=== PATIENT | female | born 1950 | race Caucasian/White ===

== ENCOUNTER 2019-06-23 15:49 | Outpatient (CLI) | payer MEDICARE, SELFPAY ==
--- NOTE | ~2019-06-23 | XR_ITS ---
EXAMINATION: XR chest 2V EXAM DATE: 06/23/2019 16:17 INDICATION: Cough. TECHNIQUE: Frontal and lateral projections of the chest obtained and reviewed. Comparison is made to prior examination from 02/24/2016. FINDINGS: Subsegmental left basilar atelectasis or pneumonia. Please clinically correlate. The lungs are otherwise clear. There are no pleural effusions. The cardiomediastinal silhouette is within no rmal limits. There is no pneumothorax suspected. The bones and soft tissues are unremarkable. Ther e are cholecystectomy clips. IMPRESSION: Subsegmental retrocardiac opacity could be atelectasis but pneumonia not excludable. Reviewed, dictated and finalized at location A. T METAL WELDER IMPRESSION: Subsegmental retrocardiac opacity could be atelectasis but pneumoni a not excludable.
== END 2019-06-23 15:50 | disposition home or self-care (01) ==
LOC: ANHIMG 15:55
PROVIDERS: PCP Family Medicine; Visit Provider Family Medicine
DX: R93.89 Abnormal findings on diagnostic imaging of other specified body structures (principal); R05 Cough
CPT/HCPCS: 71046

== ENCOUNTER 2019-10-25 19:45 | Emergency (ER) | payer MEDICARE, SELFPAY ==
--- NOTE | ~2019-10-25 | CT_ITS ---
EXAMINATION: CT brain wo con, CT facial bones wo con DATE: 10/25/2019 20:13 INDICATION: Fall with head injury and right eye injury TECHNIQUE: Computed tomography (CT) of the head was performed without intravenous contrast. Sagittal and coronal reconstructions were performed. The mA was adjusted according to patient size. Iterative reconstruction technique was employed. The dose-length product was 605.33 mGy-cm. 2. CT of the maxillofacial bones was performed without intravenous contrast. Sagittal and coronal rec onstructions were performed. Automated exposure control and iterative reconstruction technique were e mployed. The dose length product was 516.76 mGy-cm. COMPARISON: None FINDINGS: Large subcutaneous hematoma and laceration small amount of subcutaneous gas centered in the cerebral right frontal region with soft tissue swelling extending to the preseptal soft tissues of the right o rbit. No post septal inflammatory stranding. No calvarial or maxillofacial fractures. Bilateral globe s appear intact with changes of bilateral intraocular lens replacement. No acute intracranial hemorrhage, acute infarction or abnormal extra axial fluid collection. There is mild scattered white matter hypoattenuation consistent with chronic small vessel ischemic disease. V entricles are normal and symmetric. No mass/mass effect. Small right mastoid effusion. Intracranial c alcified cerebral atherosclerosis is noted. IMPRESSION: 1. No calvarial or maxillofacial fractures. 2. No acute intracranial process. 3. Mild scattered white matter hypoattenuation consistent with chronic small vessel ischemic disease. Reviewed, dictated and finalized at location A. IMPRESSION: 1. No calvarial or maxillofacial fractures. 2. No acute intracranial process. 3. Mild scattered white matter hypoattenuation consistent with chronic small ve ssel ischemic disease.
[2019-10-25 19:46] VITALS: BP 175/88; PULSE 75; RESP 18; TEMP 36.9; O2SAT 98
--- NOTE | 2019-10-25 20:24 | ED.FALL ---
HPI - Fall General Chief Complaint: Fall Stated Complaint: fall, hi Time Seen by Provider: 10/25/19 19:56 Source: patient Mode of arrival: ambulatory Limitations: no limitations History of Present Illness HPI Narrative: This is a 68 year old female that presents to the ER for fall with head injury. Reports she was walking up the steps onto her porch and missed a step. Reports falling forward and hitting her face on the concrete. Reports a hematoma over the right upper eyelid. Reports she takes a blood thinner. Reports since she has had a headache. Denies neck pain, vision changes, vomiting, weakness or numbness. Related Data Home Medications Medication Instructions Recorded Confirmed albuterol sulfate 90 mcg/actuation 2 puff INHALATION Q4-6H PRN gm 03/19/19 07/03/19 aerosol inhaler aspirin 81 mg tablet,delayed 81 mg PO DAILY 03/19/19 07/03/19 release clopidogrel 75 mg tablet 75 mg PO DAILY 03/19/19 07/03/19 cyanocobalamin (vitamin B-12) 2,000 mcg PO DAILY 03/19/19 07/03/19 2,000 mcg tablet,extended release fluticasone propionate 50 2 spray NASAL DAILY 03/19/19 07/03/19 mcg/actuation nasal spray,suspension pantoprazole 40 mg tablet,delayed 40 mg PO QAM 03/19/19 07/03/19 release potassium chloride 10 mEq 10 meq PO DAILY 03/19/19 07/03/19 tablet,extended release gabapentin 300 mg capsule 300 mg PO TID 04/23/19 07/03/19 furosemide 40 mg tablet 160 mg PO QAM tablet 06/16/19 07/03/19 Allergies Allergy/AdvReac Type Severity Reaction Status Date / Time diphenhydramine Allergy Unknown restless Verified 10/25/19 19:57 legs nickel Allergy Unknown hives and Verified 10/25/19 19:57 itchy rash nifedipine Allergy Unknown palpitation Verified 10/25/19 19:57 s Sulfa (Sulfonamide Allergy Unknown Urticaria Verified 10/25/19 19:57 Antibiotics) and hives CALCIUMCHANNEL AdvReac Unknown unknown Uncoded 06/16/19 10:53 Review of Systems Review of Systems: Narrative: CONSTITUTIONAL: Denies fever EYES: Denies visual changes GASTROINTESTINAL: Denies vomiting MUSCULOSKELETAL: Denies back pain, joint pain, or myalgia. NEUROLOGIC: Reports headache. Denies numbness, or weakness. All systems reviewed & are unremarkable except as noted in HPI and below PMFSH Past Medical History Medical History (Updated 10/25/19 @ 21:04 by Heather López PA-C) Chronic kidney disease, stage III (moderate) COPD (chronic obstructive pulmonary disease) Depression History of stroke Hypothyroid Type 2 diabetes mellitus with hyperglycemia Social History Social History (Updated 07/03/19 @ 13:02 by Charlene Pierre) Smoking packs per day: 2 Smoking cigarettes per day: 40.0 Years smoked: 20 Smoking pack-years: 40.00 Smoking status: Former smoker Tobacco type: cigarettes Second hand tobacco smoke exposure: No Smoking end date: 05/07/87 Alcohol intake: current Substance use: never Substance use type: does not use Gender identity (if verbalized by the patient): Female Exam Narrative: Exam Narrative: GENERAL: Well-appearing, well-nourished, and in no acute distress. HEAD: Normocephalic. EYES: PERRLA and EOMI. Right upper eyelid with edema and ecchymosis. Right frontal scalp hematoma ENT: Nares clear, no rhinorrhea or epistaxis. Mucous membranes moist. Oropharynx without tonsillar hypertrophy exudate or other lesions. Bilateral TMs pearly nguyen non-bulging NECK: Supple. No adenopathy or masses. No midline cervical spine tenderness CHEST: Clear to auscultation. No respiratory distress. No wheezes rales or rhonchi HEART: Regular rate and rhythm. No murmur heard. Normal peripheral pulses. EXTREMITIES: Normal range of motion. No edema. SKIN: Warm, dry, no rash. NEURO: No focal deficits. Alert and oriented x3. Cranial nerves II through XII grossly intact PSYCH: Normal mood and affect Course Vital Signs Vital signs: Vital Signs Temperature 98.4 F 10/25/19 19:46 Pulse Rate 75 10/25/19 19:46 R
[2019-10-25] MEDS: ACETAMINOPHEN 500 MG TABLET 1000 MG PO (20:51)
== END 2019-10-25 21:50 | disposition home or self-care (01) ==
PROVIDERS: Emergency Provider Emergency Medicine; PCP Family Medicine
DX: S00.11XA Contusion of right eyelid and periocular area, initial encounter (principal); E11.22 Type 2 diabetes mellitus with diabetic chronic kidney disease; N18.3 Chronic kidney disease, stage 3 (moderate); Z86.73 Personal history of transient ischemic attack (TIA), and cerebral infarction without residual deficits; J44.9 Chronic obstructive pulmonary disease, unspecified; Z87.891 Personal history of nicotine dependence; E03.9 Hypothyroidism, unspecified; Z79.82 Long term (current) use of aspirin; W10.9XXA Fall (on) (from) unspecified stairs and steps, initial encounter; Z79.4 Long term (current) use of insulin; F32.9 Major depressive disorder, single episode, unspecified
CPT/HCPCS: 70450; 70486; 99284; A9270

== ENCOUNTER 2020-10-20 07:56 | Outpatient (CLI) | payer MEDICARE, SELFPAY ==
[2020-10-20 08:38] LABS: Basophils Absolute Auto 0.1 K/mm3 (0.0-0.1); Basophils Percent Auto 0.8 % (0.2-1.2); Eosinophils Absolute Auto 0.5 K/mm3 (0-0.3); Eosinophils Percent Auto 5.1 % (0-4.4); Hematocrit 35.3 % (37.0-47.0); Hemoglobin 11.1 g/dL (12.0-15.0); Immature Granulocyte Absolute 0.04 K/mm3 (0.00-0.031); Immature Granulocyte Percent A 0.4 % (0-0.5); Lymphocytes Absolute Auto 3.14 K/mm3 (0.9-3.2); Lymphocytes Percent Auto 29.9 % (18.3-44.2); Mean Corpuscular HGB Conc 31.4 g/dl (32-36); Mean Corpuscular Hemoglobin 26.7 pg (26-34); Mean Corpuscular Volume 85.1 fl (80-100); Mean Platelet Volume 10.7 fl (7.4-10.4); Monocytes Absolute Auto 0.9 K/mm3 (0.1-0.6); Neutrophils Absolute Auto 5.8 K/mm3 (1.3-6.7); Neutrophils Percent Auto 54.8 % (45.5-73.1); Platelet Count Result 303 k/mm3 (150-375); Red Blood Count 4.15 M/mm3 (4.2-5.4); Red Cell Distribution Width 14.8 % (11.5-14.5); White Blood Count 10.5 K/mm3 (4.5-10.0)
[2020-10-20 08:42] LABS: Add Urine Microscopic? YES; Appearance Urine Cloudy (Clear); Bilirubin Urine Negative (Negative); Blood Urine Negative (Negative); Color Urine Yellow (Yellow); Glucose Urine UA Negative (Negative); Ketones Urine Negative (Negative); Leukocyte Esterase Ur Trace LEU/UL (NEGATIVE); Mucus Urine Rare /lpf; Nitrate Urine Negative (Negative); Protein Urine 1+ mg/dL (Negative); Specific Grav Ur 1.014 (1.001-1.035); Squamous Epithelial Cell Urine Many /hpf (Few); Urobilinogen Urine Negative mg/dL (<2.0)
[2020-10-20 08:51] LABS: Anion Gap 8 mmol/L (8-16); Blood Urea Nitrogen 64 mg/dL (7-17); Calcium 9.7 mg/dL (8.4-10.2); Carbon Dioxide 29 mmol/L (22-30); Chloride 102 mmol/L (98-107); Cholesterol 223 mg/dL (0-200); Estimated Glomerular Filt Rate 26; Glucose 187 mg/dL (65-105); HDL Direct 49 mg/dL; Phosphorus 3.8 mg/dL (2.5-4.5); Potassium 4.3 mmol/L (3.4-5.0); Sodium 139 mmol/L (137-145); Triglycerides 154 mg/dL (<150)
[2020-10-20 08:53] LABS: Alanine Aminotransferase 15 U/L (4-35); Alkaline Phosphatase 94 U/L (38-126); Anion Gap 9 mmol/L (8-16); Aspartate Amino Transferase 24 U/L (14-36); Bilirubin,Total 0.4 mg/dL (0.2-1.3); Blood Urea Nitrogen 65 mg/dL (7-17); Calcium 9.7 mg/dL (8.4-10.2); Carbon Dioxide 29 mmol/L (22-30); Chloride 102 mmol/L (98-107); Estimated Glomerular Filt Rate 26; Glucose 187 mg/dL (65-105); Magnesium 1.9 mg/dL (1.6-2.3); Potassium 4.4 mmol/L (3.4-5.0); Sodium 140 mmol/L (137-145)
[2020-10-20 09:01] LABS: LDL Cholesterol Direct 93 mg/dL
[2020-10-20 09:21] LABS: Thyroid Stimulating Hormone 0.189 uIU/mL (0.465-4.680)
[2020-10-20 09:42] LABS: Hemoglobin A1C 9.2 % (<5.7)
== END 2020-10-20 07:57 | disposition home or self-care (01) ==
PROVIDERS: PCP Family Medicine; Visit Provider Physician Assistant
DX: E11.65 Type 2 diabetes mellitus with hyperglycemia (principal); G47.00 Insomnia, unspecified; I25.10 Atherosclerotic heart disease of native coronary artery without angina pectoris; I50.32 Chronic diastolic (congestive) heart failure; E11.29 Type 2 diabetes mellitus with other diabetic kidney complication; J30.2 Other seasonal allergic rhinitis; Z51.81 Encounter for therapeutic drug level monitoring; Z79.4 Long term (current) use of insulin; N18.2 Chronic kidney disease, stage 2 (mild); E11.00 Type 2 diabetes mellitus with hyperosmolarity without nonketotic hyperglycemic-hyperosmolar coma (NKHHC); E11.22 Type 2 diabetes mellitus with diabetic chronic kidney disease
CPT/HCPCS: 36415; 80053; 80061; 80069; 81001; 83036; 83735; 84443; 85025

== ENCOUNTER 2020-11-19 12:26 | Outpatient (CLI) | payer MEDICARE, SELFPAY ==
[2020-11-19 13:11] LABS: Basophils Absolute Auto 0.1 K/mm3 (0.0-0.1); Basophils Percent Auto 0.5 % (0.2-1.2); Eosinophils Absolute Auto 0.5 K/mm3 (0-0.3); Eosinophils Percent Auto 3.7 % (0-4.4); Hematocrit 31.7 % (37.0-47.0); Hemoglobin 9.8 g/dL (12.0-15.0); Immature Granulocyte Absolute 0.06 K/mm3 (0.00-0.031); Immature Granulocyte Percent A 0.5 % (0-0.5); Lymphocytes Absolute Auto 1.86 K/mm3 (0.9-3.2); Lymphocytes Percent Auto 14.4 % (18.3-44.2); Mean Corpuscular HGB Conc 30.9 g/dl (32-36); Mean Corpuscular Hemoglobin 26.6 pg (26-34); Mean Corpuscular Volume 85.9 fl (80-100); Mean Platelet Volume 10.6 fl (7.4-10.4); Monocytes Absolute Auto 0.9 K/mm3 (0.1-0.6); Neutrophils Absolute Auto 9.5 K/mm3 (1.3-6.7); Neutrophils Percent Auto 73.9 % (45.5-73.1); Platelet Count Result 300 k/mm3 (150-375); Red Blood Count 3.69 M/mm3 (4.2-5.4); Red Cell Distribution Width 15.1 % (11.5-14.5); White Blood Count 12.9 K/mm3 (4.5-10.0)
[2020-11-19 13:18] LABS: Add Urine Microscopic? YES; Appearance Urine Cloudy (Clear); Bacteria Urine Trace /hpf; Bilirubin Urine Negative (Negative); Blood Urine Negative (Negative); Color Urine Yellow (Yellow); Glucose Urine UA Negative (Negative); Ketones Urine Negative (Negative); Leukocyte Esterase Ur Negative LEU/UL (NEGATIVE); Nitrate Urine Negative (Negative); Protein Urine Negative (Negative); Specific Grav Ur 1.013 (1.001-1.035); Squamous Epithelial Cell Urine Many /hpf (Few); Urobilinogen Urine Negative mg/dL (<2.0); WBC Urine 0-3 /hpf (0-3)
[2020-11-19 13:26] LABS: Anion Gap 10 mmol/L (8-16); Blood Urea Nitrogen 62 mg/dL (7-17); Calcium 9.2 mg/dL (8.4-10.2); Carbon Dioxide 26 mmol/L (22-30); Chloride 99 mmol/L (98-107); Estimated Glomerular Filt Rate 23; Glucose 209 mg/dL (65-105); Magnesium 1.4 mg/dL (1.6-2.3); Sodium 135 mmol/L (137-145)
[2020-11-19 14:02] LABS: Iron 40 ug/dL (37-170)
[2020-11-19 14:11] LABS: Percent Iron Saturation 11 % (20-50)
[2020-11-19 14:34] LABS: Folic Acid 8.2 ng/mL (2.76->20); Vitamin B12 > 1000.0 pg/mL (239-931)
== END 2020-11-19 12:27 | disposition home or self-care (01) ==
PROVIDERS: PCP Family Medicine; Visit Provider Physician Assistant
DX: E03.9 Hypothyroidism, unspecified (principal); N18.2 Chronic kidney disease, stage 2 (mild); D72.829 Elevated white blood cell count, unspecified; D64.9 Anemia, unspecified; R82.81 Pyuria; R31.9 Hematuria, unspecified
CPT/HCPCS: 36415; 80069; 81001; 82607; 82728; 82746; 83540; 83550; 83735; 84443; 85025; 87086

== ENCOUNTER 2021-02-09 13:17 | Outpatient (CLI) | payer MEDICARE, SELFPAY ==
[2021-02-09 14:29] LABS: Albumin Level 4.2 g/dL (3.5-5.1); Anion Gap 7 mmol/L (8-16); Blood Urea Nitrogen 51 mg/dL (7-17); Calcium 9.6 mg/dL (8.4-10.2); Carbon Dioxide 31 mmol/L (22-30); Chloride 100 mmol/L (98-107); Estimated Glomerular Filt Rate 22; Glucose 130 mg/dL (65-110); Phosphorus 4.1 mg/dL (2.5-4.5); Potassium 4.9 mmol/L (3.4-5.0); Sodium 138 mmol/L (137-145)
[2021-02-09 14:35] LABS: MALB Creatinine Ratio 123.3 mg/g (0-30); Microalbumin Urine Random 78.9 mg/L (0-16.7)
[2021-02-09 14:46] LABS: Free T4 Free Thyroxine 1.41 ng/mL (0.78-2.19)
== END 2021-02-09 13:18 | disposition home or self-care (01) ==
LOC: ANHLAB 13:23
PROVIDERS: PCP Family Medicine; Visit Provider Internal Medicine Endocrinology, Diabetes & Metabolism
DX: E03.9 Hypothyroidism, unspecified (principal); N18.2 Chronic kidney disease, stage 2 (mild); E11.9 Type 2 diabetes mellitus without complications; E11.65 Type 2 diabetes mellitus with hyperglycemia; Z71.3 Dietary counseling and surveillance
CPT/HCPCS: 29445; 36415; 80069; 82043; 83735; 84439; 84443

== ENCOUNTER 2021-03-16 11:36 | Outpatient (CLI) | payer MEDICARE, SELFPAY ==
--- NOTE | ~2021-03-16 | XR_ITS ---
EXAMINATION: XR ribs LT 2V w CXR 2V EXAM DATE: 03/16/2021 12:08 INDICATION: Z91.81 - History of falling, left rib pain. Initial encounter. TECHNIQUE: Frontal projection of the upper left ribs, frontal projection of the lower left ribs, obli que projection of the left ribs, frontal and lateral chest x-ray(s) for interpretation. Correlation i s made to chest x-ray 06/23/2019. FINDINGS: There is acute left 5th rib fracture laterally. Small amount of lingular linear atelectasis . Cardiomediastinal silhouette is normal. No pleural effusion or pneumothorax. IMPRESSION: Acute left rib fracture laterally. Reviewed, dictated and finalized at location A. S DESIGNER
--- NOTE | ~2021-03-16 | XR_ITS ---
EXAMINATION: XR shoulder LT min 2V EXAM DATE: 03/16/2021 12:07 INDICATION: Z91.81 - History of falling, left shoulder pain. TECHNIQUE: The following left shoulder projections obtained: frontal projection with internal rotatio n, frontal projection with external rotation, Grashey, and scapular Y view (4+ views). Comparison is made to prior examination from 01/10/2018. FINDINGS: No evidence of left shoulder rotator cuff calcific tendinosis. There is mild glenohumeral joint, moderate acromioclavicular joint primary osteoarthritis. There is acute left 5th rib fracture anterolaterally. There are no acute shoulder fractures or dislocations identified. There is no subcu taneous gas. The soft tissue is unremarkable. There are no radiopaque foreign bodies. IMPRESSION: 1. Acute left 5th rib fracture anterolaterally. 2. 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 Reviewed, dictated and finalized at location A. E MILLER HELPER
== END 2021-03-16 11:37 | disposition home or self-care (01) ==
PROVIDERS: PCP Family Medicine; Visit Provider Physician Assistant
DX: M25.512 Pain in left shoulder (principal); R07.81 Pleurodynia; Z91.81 History of falling; S22.32XA Fracture of one rib, left side, initial encounter for closed fracture; M19.012 Primary osteoarthritis, left shoulder
CPT/HCPCS: 29445; 71046; 71100; 73030

== ENCOUNTER 2021-03-30 07:19 | Outpatient (RCR) | payer MEDICARE, SELFPAY ==
[2021-01-04 13:38] VITALS: BMI 47.5
--- NOTE | 2021-01-31 13:11 | PCWOUND ---
AGNES NOTE patient called office at 1215 claiming she wasn't sure that she had an appointment today or that she had missed the appointment. Told patient her appointment was today at 1230 and asked if she was going to make it. Patient then goes on about how she didn't realize that the cast was a set in stone treatment and she has claustrophobia and unsure if she can do this. Patient states her concerns are that her feet swell and night causing a lot of pain and bee sting sensations and that she has to take a pain pill to relieve the issue. Patient states she is absolutely terrified of the cast due to claustrophobia since she cannot remove the cast. I educated the patient that she was correct that the cast must stay on 24 hours a day with a walking boot and that the cast is changed every 7 days. I educated that she has to sponge bathe as well while cast is on. I acknowledged patient's concerns about her anxiety that if she would come in for an appointment Sunday02/02/21 that I would show her a sample cast and that if she chooses to have one applied that if her anxiety was too much that she can call on 02/03/21 morning and that I would bring her in and remove the cast. Patient is agreeable to come in for an appointment before refusing treatment. I spoke with Emily at Dr. Gonzalez' office to inform of situation and rescheduled appointment.
== END 2021-04-04 23:59 | disposition home or self-care (01) ==
LOC: ANHWOC 07:19
PROVIDERS: PCP Family Medicine; Visit Provider Podiatrist Foot & Ankle Surgery
DX: E11.621 Type 2 diabetes mellitus with foot ulcer (principal); L97.519 Non-pressure chronic ulcer of other part of right foot with unspecified severity
CPT/HCPCS: 29445; 99212; G0463

== ENCOUNTER 2021-04-06 12:05 | Outpatient (RCR) | payer MEDICARE, SELFPAY ==
[2021-04-05 00:06] VITALS: BMI 47.5
== END 2021-05-27 12:11 | disposition home or self-care (01) ==
LOC: ANHWOC 12:05
PROVIDERS: PCP Family Medicine; Visit Provider Podiatrist Foot & Ankle Surgery
DX: E11.621 Type 2 diabetes mellitus with foot ulcer (principal); L97.519 Non-pressure chronic ulcer of other part of right foot with unspecified severity
CPT/HCPCS: 99213; A9270; G0463

== ENCOUNTER 2021-05-10 17:05 | Emergency (ER) | payer MEDICARE, SELFPAY ==
[2021-05-10 17:10] VITALS: BP 109/77; PULSE 64; RESP 18; TEMP 36.6; O2SAT 100
== END 2021-05-11 01:34 | disposition left against medical advice (07) ==
LOC: ANHED 18:46
PROVIDERS: PCP Family Medicine
DX: Z53.21 Procedure and treatment not carried out due to patient leaving prior to being seen by health care provider (principal)
CPT/HCPCS: 99199

== ENCOUNTER 2021-07-21 14:07 | Outpatient (CLI) | payer MEDICARE, SELFPAY ==
[2021-07-21 14:43] LABS: Albumin Level 4.4 g/dL (3.5-5.1); Anion Gap 7 mmol/L (8-16); Blood Urea Nitrogen 61 mg/dL (7-17); Calcium 9.4 mg/dL (8.4-10.2); Carbon Dioxide 30 mmol/L (22-30); Chloride 100 mmol/L (98-107); Estimated Glomerular Filt Rate 26; Glucose 176 mg/dL (65-110); Magnesium 2.1 mg/dL (1.6-2.3); Potassium 4.6 mmol/L (3.4-5.0); Sodium 137 mmol/L (137-145)
[2021-07-21 14:46] LABS: Hemoglobin A1C 8.2 % (<5.7)
== END 2021-07-21 14:08 | disposition home or self-care (01) ==
LOC: ANHLAB 14:12
PROVIDERS: PCP Family Medicine
DX: I12.9 Hypertensive chronic kidney disease with stage 1 through stage 4 chronic kidney disease, or unspecified chronic kidney disease (principal); N18.31 Chronic kidney disease, stage 3a; E11.00 Type 2 diabetes mellitus with hyperosmolarity without nonketotic hyperglycemic-hyperosmolar coma (NKHHC); E11.22 Type 2 diabetes mellitus with diabetic chronic kidney disease; R35.1 Nocturia; R60.9 Edema, unspecified
CPT/HCPCS: 36415; 80069; 83036; 83735

== ENCOUNTER 2021-09-30 08:00 | Outpatient (CLI) | payer MEDICARE, SELFPAY ==
--- NOTE | ~2021-09-30 | US_ITS ---
EXAMINATION: US art doppler w press LE BI DATE: 09/30/2021 09:46 INDICATION: Peripheral arterial occlusive disease to the bilateral lower limbs with claudication TECHNIQUE: Segmental pressures and plethysmographic and Doppler waveforms of the brachial and lower e xtremity arteries were obtained. COMPARISON: None. FINDINGS: Left brachial artery pressure of 168 mm Hg. The right ankle-brachial index (BRI) is 1.04 (normal >= 0.9-1). The right great toe-brachial index (T BI) is 0.57 (normal >= 0.6-0.8). Significantly decreased pressures at the right dorsalis pedis artery compared with the right posterior tibial artery and the contralateral left dorsalis pedis artery. Bi phasic waveforms with brisk systolic upstrokes throughout the arteries of the right lower limb. The left BRI is 1.08. The left TBI is 0.84. Arterial waveforms are biphasic with brisk systolic upstr okes throughout the arteries of the left lower limb. Left popliteal artery was not evaluated as patie nt refused due to pain. IMPRESSION: 1. Mild arterial occlusive disease to the right lower limb with mildly decreased right TBI with susanna l left TBI and bilateral ABIs. Reviewed, dictated and finalized at location B. IMPRESSION: 1. Mild arterial occlusive disease to the right lower limb with mildly decrease d right TBI with normal left TBI and bilateral ABIs.
== END 2021-09-30 08:01 | disposition home or self-care (01) ==
LOC: ANHIMG 08:05
PROVIDERS: PCP Family Medicine; Visit Provider Podiatrist Foot & Ankle Surgery
DX: I73.9 Peripheral vascular disease, unspecified (principal)
CPT/HCPCS: 93923

== ENCOUNTER 2021-11-22 11:22 | Outpatient (CLI) | payer MEDICARE, SELFPAY ==
[2021-11-22 11:50] LABS: Hematocrit 32.3 % (37.0-47.0); Hemoglobin 9.9 g/dL (12.0-15.0)
[2021-11-22 12:02] LABS: Anion Gap 3 mmol/L (8-16); Blood Urea Nitrogen 68 mg/dL (7-17); Carbon Dioxide 32 mmol/L (22-30); Chloride 104 mmol/L (98-107); Estimated Glomerular Filt Rate 23; Glucose 188 mg/dL (65-110); Potassium 4.8 mmol/L (3.4-5.0); Sodium 139 mmol/L (137-145)
[2021-11-22 12:08] LABS: INR 1.1; Prothrombin Time 13.5 Seconds (11.1-14.7)
[2021-11-22 12:09] LABS: Partial Thromboplastin Time 32.3 SECONDS (22.3-36.8)
== END 2021-11-22 11:23 | disposition home or self-care (01) ==
PROVIDERS: Anesthesiology; PCP Family Medicine; Visit Provider Podiatrist Foot & Ankle Surgery
DX: Z01.812 Encounter for preprocedural laboratory examination (principal); I13.0 Hypertensive heart and chronic kidney disease with heart failure and stage 1 through stage 4 chronic kidney disease, or unspecified chronic kidney disease; N18.30 Chronic kidney disease, stage 3 unspecified; Z51.81 Encounter for therapeutic drug level monitoring; Z79.899 Other long term (current) drug therapy
CPT/HCPCS: 36415; 80048; 85014; 85018; 85610; 85730

== ENCOUNTER 2021-11-25 01:12 | Day surgery (SDC) | payer MEDICARE, SELFPAY ==
[2021-11-22 09:34] VITALS: BMI 49.6
--- NOTE | 2021-11-22 09:59 | PC.NURSE ---
Report to the Outpatient Waiting Room, entrance under the green pavilion located off [facility], at time _0730_ on date _11/25/21_. OR Time: _0930_. - You and your visitor will be asked a series of questions to screen for COVID 19 for your protection. - Only one visitor is allowed at this time. - The patient visitor is requested to leave or wait in car when not with patient. - A mask is required within the hospital. Patients may have clear liquids (water, carbonated beverages, clear teas, apple juice) until 3 hours prior to surgery (0630 AM) with a maximum of 20 ounces. - No food from midnight until time of surgery Take the following medications with a SIP of water the morning of surgery: _ALPRAZOLAM, MONTELUKAST, SYNTHROID, INHALER, PAIN MEDS_ Medications to discontinue per physician - _CALL DR. SANCHEZ'S OFFICE REGARDING ASPIRING AND CLOPIDOGREL_ Date to take last dose____ Please no make-up, nail luxembourger, hairspray, perfume, deodorant, or body powder the day of surgery. No jewelry (including any body piercings) or valuables the day of surgery, leave them at home. Please take a shower or bath the night before, or the morning of, surgery with an antibacterial soap. Wear comfortable, loose fitting clothing. - Jewelry must be removed prior to entering the operating room. Rings and piercings that are not removed may be cut off. - The hospital will not accept responsibility for valuables. - Please leave all valuables, including medications, at home the day of surgery. If you are going home after surgery, a licensed local company refrigerated truck driver must drive you home. - NO public transportation without another adult. - We recommend that an adult stay with you for 24 hours following discharge. - We also recommend that you do not drive, make important decision, drink alcoholic beverages, or take any drugs that were not prescribed by your health care provider for at least 24 hours after your discharge time. Follow any additional instructions given to you from your surgeon. If you or anyone in your household have experienced Covid symptoms in the past week, please notify your surgeon or the nurse liaison at the phone number below for possible testing. Telephone instructions given to ____PT and asked if any additional questions and then verbalized understanding. Patient advised to call surgeon office or pre surgery nurse liaison [phone] if any additional questions.
--- NOTE | 2021-11-24 10:38 | WPDANESEPPF ---
Anes - Initial Pre Proc Eval Procedure: Operation Date: 11/25/21 09:30 Proposed Procedures p Fifth Metatarsal Head Resection Right Foot - Yoan Gonzalez JR, MD <Moustapha Bravo MD - Last Filed: 11/24/21 10:39> Date/Time: 11/24/21 10:38 <Moustapha Bravo MD - Last Filed: 11/24/21 10:39> Surgeon: Yoan Gonzalez JR, MD <Moustapha Bravo MD - Last Filed: 11/24/21 10:39> Pre Op Diagnosis: chronic ulceration rt foot sub 5th mpj <Moustapha Bravo MD - Last Filed: 11/24/21 10:39> Patient Data Age: 70 Gender: F Height: 1.6 m Weight: 127.27 kg <Moustapha Bravo MD - Last Filed: 11/24/21 10:39> Allergies Allergy/AdvReac Type Severity Reaction Status Date / Time diphenhydramine Allergy Unknown restless Verified 11/25/21 08:20 legs nickel Allergy Unknown hives and Verified 11/25/21 08:20 itchy rash nifedipine Allergy Unknown palpitation Verified 11/25/21 08:20 s Sulfa (Sulfonamide Allergy Unknown Urticaria Verified 11/25/21 08:20 Antibiotics) and hives Aevwtri-LVR-RiH Reductase AdvReac Intermediate muscle Verified 11/25/21 08:20 Inhibitor cramps [Ndxueni-Pum-Auo Reductase Inhibitor] CALCIUMCHANNEL AdvReac Unknown SEE COMMIT Uncoded 11/25/21 08:20 <Moustapha Bravo MD - Last Filed: 11/24/21 10:39> Home Medications Medication Instructions Recorded Confirmed Type aspirin 81 mg tablet,delayed 81 mg PO HS 03/19/19 11/25/21 History release (Aspir-Low) cyanocobalamin (vitamin B-12) 2,000 mcg PO DAILY 03/19/19 11/22/21 History 2,000 mcg tablet,extended release (Vitamin B-12 ER) fluticasone propionate 50 2 spray intranasal DAILY 03/19/19 11/25/21 History mcg/actuation nasal spray,suspension ipratropium 0.5 mg-albuterol 3 mg 3 ml inhalation Q8H PRN shortness 05/22/19 11/22/21 Rx (2.5 mg base)/3 mL nebulization of breath or wheezing #180 mL soln ferrous sulfate 325 mg (65 mg 325 mg PO BID #180 tabs 11/22/20 11/22/21 Rx iron) tablet,delayed release blood sugar diagnostic (OneTouch #400 ea 01/31/21 11/08/21 Rx Verio test strips) flash glucose scanning reader #1 ea 01/31/21 11/08/21 Rx (FreeStyle Nica 2 [place]) flash glucose sensor (FreeStyle #6 ea 01/31/21 11/08/21 Rx Nica 2 Sensor kit) clopidogrel 75 mg tablet (Plavix) 75 mg PO DAILY #90 tabs 05/30/21 11/25/21 Rx irbesartan 300 mg tablet 300 mg PO DAILY #90 tabs 06/13/21 11/25/21 Rx insulin glargine 100 unit/mL (3 55 unit subcut QPM 07/04/21 11/25/21 History mL) subcutaneous pen (Lantus Solostar U-100 Insulin) alprazolam 0.5 mg tablet 0.5 mg PO BID #60 tabs 08/15/21 11/25/21 Rx furosemide 80 mg tablet 120 mg PO DAILY #135 tabs 09/29/21 11/25/21 Rx hydrochlorothiazide 25 mg tablet 50 mg PO DAILY #180 tabs 09/29/21 11/25/21 Rx insulin syringe-needle U-100 1 mL #100 ea 10/14/21 11/08/21 Rx 31 gauge x 5/16 (BD Insulin Syringe Ultra-Fine) gabapentin 600 mg tablet 600 mg PO BID #180 tabs 11/08/21 11/25/21 Rx tramadol 50 mg tablet 50 mg PO Q12H PRN pain #30 tabs 11/10/21 11/25/21 Rx albuterol sulfate 90 mcg/actuation See Rx Instructions .Route 11/22/21 11/25/21 History aerosol inhaler .COMPLEX PRN Wheezing gabapentin 800 mg tablet 800 mg PO HS 11/22/21 11/25/21 History levothyroxine 175 mcg tablet 175 mcg PO QAM 11/22/21 11/25/21 History (Synthroid) montelukast 10 mg tablet 10 mg QAM 11/22/21 11/25/21 History pantoprazole 40 mg tablet,delayed 40 mg QAM 11/22/21 11/25/21 History release verapamil 360 mg 24 hr 360 mg PO HS 11/22/21 11/25/21 History capsule,extended release <Moustapha Bravo MD - Last Filed: 11/24/21 10:39> Patient hx anesthesia problems: none <Asad Vale DO - Last Filed: 11/25/21 08:29> Family hx anesthesia problems: none <Asad Vale DO - Last Filed: 11/25/21 08:29> Results Review: All pre-operative results and documents have been reviewed as part of the pre-operative e
--- NOTE | ~2021-11-25 | XR_ITS ---
EXAMINATION: XR surgery orthopedic DATE: 11/25/2021 10:10 INDICATION: Right foot surgery TECHNIQUE: Single dorsal plantar fluoroscopic image of the right forefoot was obtained during procedu re performed by Dr. Gonzalez. Radiologist was not present for the imaging or procedure. The amount of fluoroscopy time used during this procedure was 0.1 minutes. COMPARISON: None. FINDINGS: Resection of the head of the right fifth metatarsal with expected postoperative gas at the resection bed. Alignment is otherwise normal. No fracture. There is flattening of the head of the second metata rsal consistent with chronic osteonecrosis (Freiberg's infraction). Mild osteoarthritis at the first and second metatarsophalangeal and a few interphalangeal joints. IMPRESSION: 1. Expected appearance post resection of the head of the right fifth metatarsal. 2. 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 Reviewed, dictated and finalized at location A. IMPRESSION: 1. Expected appearance post resection of the head of the right fifth metatarsal . 2. 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
--- NOTE | 2021-11-25 07:25 | WPDHPUPDATE1 ---
History and Physical Update Update Date/Time: 11/25/21 07:25 History and Physical has been reviewed, including an updated exam of the patient. There are NO changes in the patient's condition. Risks, benefits, and alternatives have been discussed and questions answered. Patient agrees to proceed with procedure.
[2021-11-25 08:49] LABS: Glucose Point of Care 300 mg/dl (65-105)
[2021-11-25] MEDS: INSULIN HUMAN REGULAR (*BKC) 100 UNITS/ML IV PUSH (08:57)
[2021-11-25] MEDS: LACTATED RINGERS 1,000 ML 30 ML IV CONT (09:00)
[2021-11-25] MEDS: MIDAZOLAM HCL (*CRX) 2 MG/2 ML VIAL IV PUSH (09:17)
[2021-11-25] MEDS: ceFAZolin 2 GM/D5W 50 ML 2 GM/50 ML BAG IVPB (09:33)
[2021-11-25 09:39] VITALS: BP 166/90; PULSE 78; RESP 12; TEMP 36.6; O2SAT 98
[2021-11-25] MEDS: LIDOCAINE HCL 2% LOCAL INJ 20 ML VIAL 10 ML INFILTRATE (09:51)
[2021-11-25] MEDS: BUPIVACAINE HCL 0.5% PF 30 ML VIAL 10 ML INFILTRATE (09:53)
[2021-11-25 10:08] VITALS: BP 156/75; PULSE 83; RESP 16; O2SAT 98
--- NOTE | 2021-11-25 10:13 | W.PM.PROC2 ---
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 A pneumatic ankle tourniquet was placed about the patient's right ankle. Following monitored anesthesia care, local anesthesia was obtained about the patients ankle utilizing 20 mL of a 1:1 mixture of 2% Lidocaine plain and 0.5% Marcaine plain. The foot was then scrubbed, prepped, and draped in the usual aseptic manner. An Esmarch bandage was then used to exsanguinate the patient's foot and the pneumatic ankle tourniquet was then inflated. Attention was directed to the dorsal lateral aspect of the fifth metatarsal head where a 2 cm incision was made just lateral to the extensor digitorum longus tendon to the fifth digit to the shaft of the fifth metatarsal. The incision was continued deep down through the subcutaneous tissues using sharp and blunt dissection. All bleeders were cauterized as necessary.A full-length periosteal incision was made overlying the fifth metatarsal distally. A McGlamry Elevator was used to free the plantar structures to the fifth metatarsal head. Next, a sagittal bone saw was used to resect the head of the fifth metatarsal proximal at the neck of the 5th metatarsal. The fifth metatarsal was removed from the operative site and placed on the back table and sent for gross and histopathology. No abnormalities to the head of the fifth metatarsal. Fluoroscopy was used to make sure that the resected distal fifth metatarsal was adequate. The edges were smoothed out with a bone rasp. Next, the periosteum and capsular structures overlying the 5th metatarsophalangeal joints were reapproximated with 4-0 Vicryl. Next, subcutaneous structures were reapproximated and coapted utilizing 4-0 Vicryl. Next, the skin was reapproximated and coapted utilizing 4-0 Monocryl in running subcuticular suture fashion technique. Upon completion of the procedure, the incision was dressed with Adaptic, 4 x 4's, Kerlix, and Coban. The pneumatic ankle tourniquet was then deflated and a prompt hyperemic response noted to all digits of the foot. A surgical shoe was then applied. The patient did very well with the procedure and the anesthesia. The patient was transferred to the recovery room with vital signs stable and vascular status intact to all toes of the affected foot. Following a period of postoperative monitoring, the patient will be discharged home on the following written and oral postoperative instructions: 1. Keep the dressing clean, dry, and intact. Use a cast protector bag with showers. 2. The patient should use a surgical shoe for ambulation postoperatively. 3. The patient should be on bedrest with bathroom privileges and elevate the affected foot when at rest. 4. The patient to contact Dr. Gonzalez for all postop care and if any problems arise. 5. Prescriptions were written for Percocet 5/325 dispensed 40 to be taken 1 p.o. q.4 to 6 hours as needed for severe pain. 6. Take one Aspirin 325mg every 24hours for two weeks post operatively. Estimated Blood Loss 1 Pathology Yes Condition Stable Disposition Same day
[2021-11-25 10:35] VITALS: BP 165/69; PULSE 79; RESP 16
[2021-11-25 11:00] VITALS: BP 138/63; PULSE 57; RESP 16
== END 2021-11-25 11:14 | disposition home or self-care (01) ==
PROVIDERS: PCP Family Medicine; Visit Provider Podiatrist Foot & Ankle Surgery
PROC: (CPT 28104; principal; 2021-11-25 09:30)
DX: E11.621 Type 2 diabetes mellitus with foot ulcer (principal); L97.519 Non-pressure chronic ulcer of other part of right foot with unspecified severity; I13.0 Hypertensive heart and chronic kidney disease with heart failure and stage 1 through stage 4 chronic kidney disease, or unspecified chronic kidney disease; N18.30 Chronic kidney disease, stage 3 unspecified; I50.32 Chronic diastolic (congestive) heart failure; E11.22 Type 2 diabetes mellitus with diabetic chronic kidney disease; J44.9 Chronic obstructive pulmonary disease, unspecified; I25.10 Atherosclerotic heart disease of native coronary artery without angina pectoris; K21.9 Gastro-esophageal reflux disease without esophagitis; E03.9 Hypothyroidism, unspecified; E11.42 Type 2 diabetes mellitus with diabetic polyneuropathy; F41.1 Generalized anxiety disorder; F32.A Depression, unspecified; Z86.73 Personal history of transient ischemic attack (TIA), and cerebral infarction without residual deficits; Z87.891 Personal history of nicotine dependence; E66.01 Morbid (severe) obesity due to excess calories; Z68.42 Body mass index [BMI] 45.0-49.9, adult; Z79.4 Long term (current) use of insulin; Z79.82 Long term (current) use of aspirin; Z79.51 Long term (current) use of inhaled steroids
CPT/HCPCS: 28113; 82948; 88305; 88311; 99199; J0690; J1815; J2250; J2704; J3010; J7120

== ENCOUNTER 2021-12-12 11:44 | Outpatient (CLI) | payer MEDICARE, SELFPAY ==
[2021-12-12 12:26] LABS: Anion Gap 9 mmol/L (8-16); Blood Urea Nitrogen 71 mg/dL (7-17); Carbon Dioxide 28 mmol/L (22-30); Chloride 98 mmol/L (98-107); Estimated Glomerular Filt Rate 23; Glucose 226 mg/dL (65-110); Magnesium 1.9 mg/dL (1.6-2.3); Phosphorus 3.9 mg/dL (2.5-4.5); Potassium 4.7 mmol/L (3.4-5.0); Sodium 135 mmol/L (137-145)
[2021-12-12 12:34] LABS: Hemoglobin A1C 8.1 % (<5.7)
== END 2021-12-12 11:45 | disposition home or self-care (01) ==
PROVIDERS: PCP Family Medicine
DX: N18.2 Chronic kidney disease, stage 2 (mild) (principal); E11.00 Type 2 diabetes mellitus with hyperosmolarity without nonketotic hyperglycemic-hyperosmolar coma (NKHHC)
CPT/HCPCS: 36415; 80069; 83036; 83735

== ENCOUNTER 2021-12-29 14:36 | Outpatient (CLI) | payer MEDICARE, SELFPAY ==
--- NOTE | ~2021-12-29 | XR_ITS ---
XR chest 2V 12/29/2021 15:03 Indication: Shortness of breath Procedure: 2 view chest Comparison: Comparison to multiple prior studies sequentially, with oldest reviewed study dated 05/28. Findings: Patchy bilateral airspace disease, compatible with pneumonia. Small pleural effusions. Bord coleman heart size. No pneumothorax. Impression: 1: Patchy bilateral airspace disease, compatible with pneumonia. Reviewed, dictated and finalized at location A. Impression: 1: Patchy bilateral airspace disease, compatible with pneumonia.
== END 2021-12-29 14:37 | disposition home or self-care (01) ==
PROVIDERS: PCP Family Medicine; Visit Provider Physician Assistant
DX: J45.909 Unspecified asthma, uncomplicated (principal); R06.02 Shortness of breath; R91.8 Other nonspecific abnormal finding of lung field
CPT/HCPCS: 71046

== ENCOUNTER 2022-02-10 21:04 | Inpatient (IN) | payer MEDICARE, SELFPAY ==
[2022-02-10] VITALS (8 sets, daily range): BP systolic 201–229; BP diastolic 76–95; PULSE 74–144; RESP 16–26; TEMP 36.9; O2SAT 78–100
--- NOTE | ~2022-02-10 | XR_ITS ---
EXAMINATION: XR chest 1V portable DATE: 02/20/2022 08:08 INDICATION: Shortness of breath. TECHNIQUE: A single frontal view of the chest was obtained. COMPARISON: Chest single view 02/17/2022, chest CT 02/11/2022 FINDINGS: There is a diffuse interstitial pattern in the lungs. There are patchy airspace opacities i n all lung zones bilaterally. There are small pleural effusions. No pneumothorax. Cardiomegaly is not ed. A right internal jugular central venous catheter is seen with tip in the right atrium. IMPRESSION: 1. Worsened diffuse lung disease, consistent with pulmonary edema or less likely pneumonia. 2. Small pleural effusions. 3. Cardiomegaly. Reviewed, dictated and finalized at location B. IMPRESSION: 1. Worsened diffuse lung disease, consistent with pulmonary edema or less likel y pneumonia. 2. Small pleural effusions. 3. Cardiomegaly.
--- NOTE | ~2022-02-10 | XR_ITS ---
EXAMINATION: XR chest 1V portable INDICATION: Shortness of breath and weakness TECHNIQUE: Portable AP chest at 0947 hours COMPARISON: 02/22/2022 FINDINGS: A large bore right internal jugular catheter ends with its tip in the right atrium. Diffuse interstitial and airspace opacities persist with slight improvement. No pleural effusion or pneumoth orax. Cardiomegaly is noted. IMPRESSION: 1. Diffuse lung disease with continued improvement, consistent with pulmonary edema and/or pneumonia. 2. Cardiomegaly. Reviewed, dictated and finalized at location B. IMPRESSION: 1. Diffuse lung disease with continued improvement, consistent with pulmonary e bell and/or pneumonia. 2. Cardiomegaly.
--- NOTE | ~2022-02-10 | US_ITS ---
EXAMINATION:US venous doppler LE BI INDICATION:Leg swelling TECHNIQUE: Multiple grayscale, color flow and Doppler images of the right and left lower extremity de ep venous systems were obtained and reviewed. COMPARISON:No prior studies for comparison. FINDINGS: The common femoral, superficial femoral and popliteal veins demonstrate normal respiratory variation, augmentation and compressibility. Color flow is also seen within the posterior tibial, pe roneal, greater saphenous and profunda veins. IMPRESSION: 1: No lower extremity deep venous thrombosis. Reviewed, dictated and finalized at location A.
--- NOTE | ~2022-02-10 | XR_ITS ---
EXAMINATION: XR chest 1V portable DATE: 02/21/2022 04:52 INDICATION: Shortness of breath TECHNIQUE: frontal view of the chest was obtained. COMPARISON: Chest radiograph dated 02/20/22 and 02/17/2022 FINDINGS: Continued slight progression in interstitial and patchy airspace opacities throughout both lungs, rig ht greater than left. No pneumothorax. Likely small bilateral pleural effusions. Cardiomegaly. Right internal jugular central venous catheter with distal tip near the superior cavoatrial junction. IMPRESSION: 1. Continued slight increase in extensive bilateral interstitial and airspace opacities which could r epresent pulmonary edema or pneumonia. 2. Likely small bilateral pleural effusions. 3. Cardiomegaly. Reviewed, dictated and finalized at location A. IMPRESSION: 1. Continued slight increase in extensive bilateral interstitial and airspace o pacities which could represent pulmonary edema or pneumonia. 2. Likely small bilateral pleural effusions. 3. Cardiomegaly.
--- NOTE | ~2022-02-10 | XR_ITS ---
EXAMINATION: XR chest 1V portable INDICATION: Shortness of breath TECHNIQUE: Portable AP chest at 0936 hours COMPARISON: 02/12/2022 FINDINGS: There is a mild diffuse interstitial pattern with slight improvement. There are small pleur al effusions. No pneumothorax is identified. The cardiomediastinal silhouette is normal. IMPRESSION: 1. Mild pulmonary edema with slight improvement. Reviewed, dictated and finalized at location A.
--- NOTE | ~2022-02-10 | US_ITS ---
EXAMINATION: US renal BI DATE: 02/14/2022 10:55 INDICATION: Acute on chronic kidney disease TECHNIQUE: Multiple grayscale and Doppler ultrasound images of the kidneys were obtained. COMPARISON: None. FINDINGS: The right kidney measures 12.9 x 5.5 x 6.1 cm. The left kidney measures 13.6 x 5.8 x 7.2 cm . The kidneys demonstrate normal parenchymal echogenicity. There is no hydronephrosis. The bladder is decompressed by a Street catheter. IMPRESSION: 1. Normal kidneys without hydronephrosis. Reviewed, dictated and finalized at location A.
--- NOTE | ~2022-02-10 | XR_ITS ---
XR chest 1V portable 02/10/2022 21:35 Indication: Shortness of breath. COPD. Procedure: AP portable chest Comparison: Comparison to multiple prior studies sequentially, with oldest reviewed study dated 02/05. Findings: Cardiomegaly with interstitial edema. No pleural effusion or pneumothorax. No acute osseous abnormality. Impression: 1: Cardiomegaly with interstitial edema. Reviewed, dictated and finalized at location A. Impression: 1: Cardiomegaly with interstitial edema.
--- NOTE | ~2022-02-10 | XR_ITS ---
XR chest 1V portable 02/12/2022 10:22 Indication: Shortness of breath Procedure: AP portable chest Comparison: Comparison to multiple prior studies sequentially, with oldest reviewed study dated 12/29. Findings: There is mild unchanged interstitial edema. No significant effusion or pneumothorax. Heart size borderline. Impression: 1: Mild interstitial edema. Reviewed, dictated and finalized at location A. Impression: 1: Mild interstitial edema.
--- NOTE | ~2022-02-10 | XR_ITS ---
XR chest 1V portable 02/11/2022 02:46 Indication: Respiratory distress Procedure: AP portable chest Comparison: Comparison to multiple prior studies sequentially, with oldest reviewed study dated 06/23. Findings: Cardiomegaly with mild interstitial edema. No pleural effusion or pneumothorax. No acute os seous abnormality. Impression: 1: Cardiomegaly with mild interstitial edema. No significant change from 02/10/2022. Reviewed, dictated and finalized at location A. Impression: 1: Cardiomegaly with mild interstitial edema. No significant change from 2021.
--- NOTE | ~2022-02-10 | XR_ITS ---
EXAMINATION: XR chest 1V portable INDICATION: Pulmonary edema TECHNIQUE: Portable AP chest at 0846 hours COMPARISON: 02/21/2022 FINDINGS: A large bore right internal jugular catheter ends with its tip in the distal superior vena cava. Diffuse interstitial and airspace opacities persist with slight improvement. No pleural effusio n or pneumothorax. Cardiomegaly is noted. IMPRESSION: 1. Diffuse lung disease with slight improvement, consistent with pulmonary edema and/or pneumonia. 2. Cardiomegaly. Reviewed, dictated and finalized at location A. IMPRESSION: 1. Diffuse lung disease with slight improvement, consistent with pulmonary linda a and/or pneumonia. 2. Cardiomegaly.
--- NOTE | ~2022-02-10 | CT_ITS ---
EXAMINATION: CTA chest PE protocol DATE: 02/11/2022 11:48 CDT INDICATION: Respiratory failure TECHNIQUE: Computed tomographic angiography (CTA) of the chest was performed with 100 mL Omnipaque-35 0 intravenous contrast. The dose-length product was 1102.50 mGy-cm. Maximum intensity projection 3D-r econstructions of the aorta and other arteries were constructed by the technologist on a separate wor kstation. Automated exposure control and iterative reconstruction technique were employed. COMPARISON: Chest x-ray dated 02/11/2022 FINDINGS: Study is technically adequate without evidence for pulmonary embolism. Evaluation of the lo wer lobe pulmonary arteries limited by motion. Small pleural effusions. Bibasilar dependent atelectas is. There is mediastinal and right hilar lymphadenopathy, likely reactive. There are patchy groundgla ss opacities with interlobular septal thickening, most likely mild edema. No endobronchial lesions. N o pneumothorax. There is mild thoracic spondylosis. Accentuated kyphosis. No acute osseous abnormalit y. IMPRESSION: 1. Patchy bilateral groundglass opacities with interlobular septal thickening, most likely edema. 2: Small pleural effusions. 3: Mediastinal and right hilar lymphadenopathy, likely reactive. 4: No evidence for pulmonary embolism. Reviewed, dictated and finalized at location A.
--- NOTE | ~2022-02-10 | XR_ITS ---
EXAMINATION: XR chest port-a-cath/central DATE: 02/17/2022 12:43 INDICATION: Dialysis catheter placement TECHNIQUE: frontal view of the chest was obtained. COMPARISON: Chest radiograph dated 02/15/2022 FINDINGS: Large-bore dual-lumen right internal jugular central venous dialysis catheter with distal tip near th e superior cavoatrial junction. Persistent scattered bilateral indistinct interstitial and mild airsp sarah opacities. No pleural effusion or pneumothorax. The cardiomediastinal silhouette is within normal limits for AP technique. IMPRESSION: 1. Right internal jugular central venous catheter tip at the superior cavoatrial junction. 2. Persistent mild bilateral interstitial and airspace opacities most likely related to pulmonary azra ma with differential including pneumonia. Reviewed, dictated and finalized at location B. IMPRESSION: 1. Right internal jugular central venous catheter tip at the superior cavoatria l junction. 2. Persistent mild bilateral interstitial and airspace opacities most likely re lated to pulmonary edema with differential including pneumonia.
--- NOTE | ~2022-02-10 | CT_ITS ---
EXAMINATION: CT abdomen pelvis wo con DATE: 02/25/2022 17:08 INDICATION: Lower limb swelling. Assess for retroperitoneal/pelvic process. TECHNIQUE: Computed tomography (CT) of the abdomen and pelvis was performed without intravenous contr ast. Automated exposure control and iterative reconstruction technique were employed. The dose-length product was 1444.95 mGy-cm. COMPARISON: None FINDINGS: Small bilateral pleural effusions dependent atelectasis in the bilateral lower lobes. Small nodular a nd groundglass opacities in the right lower lobe which are new since study performed 2 weeks prior wh ich would be most consistent with pneumonia. Heart size is normal. Atherosclerotic coronary artery ca lcification. No pericardial effusion. Cholecystectomy clips the gallbladder fossa. Liver, spleen, [place] cre[place], bilateral adrenal glands and kidneys are normal. There is mild colonic diverticulosis with a s igmoid predominance. There is no adjacent inflammatory change to suggest diverticulitis. The appendix is not visualized. No pericecal inflammatory change to suggest acute appendicitis. Street catheter wi thin the decompressed bladder. Uterus and bilateral adnexa are unremarkable. No free intraperitoneal gas or fluid. No pathologically enlarged abdominal or pelvic lymphadenopathy. Body wall edema at the abdomen and pelvis. Severe lumbar spondylosis. There are bridging osteophytes at multiple levels in t he lower thoracic and upper lumbar spine, consistent with diffuse idiopathic skeletal hyperostosis (D SKYLER). IMPRESSION: 1. Small nodular and groundglass opacity in the right lower lobe new since study 2 weeks prior to be most consistent with pneumonia. 2. Small bilateral pleural effusions. 3. Mild colonic diverticulosis. No acute intra-abdominal/pelvic process. Reviewed, dictated and finalized at location A. IMPRESSION: 1. Small nodular and groundglass opacity in the right lower lobe new since stud y 2 weeks prior to be most consistent with pneumonia. 2. Small bilateral pleural effusions. 3. Mild colonic diverticulosis. No acute intra-abdominal/pelvic process.
--- NOTE | ~2022-02-10 | US_ITS ---
EXAMINATION: US venous doppler LE DATE: 02/20/2022 14:07 INDICATION: Shortness of breath TECHNIQUE: Grayscale ultrasound images without and with compression and Doppler ultrasound images of the bilateral lower extremity veins were obtained. COMPARISON: 02/11/2022 FINDINGS: The visualized portions of right common femoral vein, profunda (deep) femoral vein, femoral vein, pop liteal vein, posterior tibial veins, peroneal veins and greater saphenous vein outflow remain patent. 5.6 x 2.0 x 4.2 cm Ba's cyst at the right popliteal fossa. Noncompressible occlusive appearing deep venous thrombosis in the distal left femoral vein and in the left popliteal vein. The visualized portions of left common femoral vein, profunda femoral vein, pro ximal to mid femoral vein, posterior tibial veins, peroneal veins and greater saphenous vein outflow are patent. IMPRESSION: 1. Occlusive appearing deep venous necrosis in the distal left femoral vein and left popliteal vein. 2. No deep venous anastomosis in the right lower limb. Reviewed, dictated and finalized at location A. IMPRESSION: 1. Occlusive appearing deep venous necrosis in the distal left femoral vein an d left popliteal vein. 2. No deep venous anastomosis in the right lower limb.
--- NOTE | 2022-02-10 21:13 | ECG_ITS ---
Measurements Intervals [place] Rate: 82 P: -1 ME: 146 QRS: 8 QRSD: 106 T: 56 QT: 402 QTc: 471 Interpretive Statements SINUS RHYTHM POOR R-WAVE PROGRESSION MINIMAL ST DEPRESSION [0.025+ mV ST DEPRESSION] NO PREVIOUS ECG AVAILABLE FOR COMPARISON Electronically Signed On 02-11-2022 7:54:45 CDT by Uriel Gillette M.D.
[2022-02-10] MEDS: FUROSEMIDE INJ 100 MG/10 ML VIAL 60 MG IV PUSH (22:08)
[2022-02-10] MEDS: dilTIAZem HCl INJ 25 MG/5 ML VIAL 15 MG IV PUSH (22:08)
[2022-02-10 22:46] LABS: Basophils Absolute Auto 0.1 K/mm3 (0.0-0.1); Basophils Percent Auto 0.6 % (0.2-1.2); Eosinophils Absolute Auto 1.1 K/mm3 (0-0.3); Eosinophils Percent Auto 9.7 % (0-4.4); Hematocrit 29.6 % (37.0-47.0); Hemoglobin 9.2 g/dL (12.0-15.0); Immature Granulocyte Absolute 0.03 K/mm3 (0.00-0.031); Immature Granulocyte Percent A 0.3 % (0-0.5); Lymphocytes Absolute Auto 1.46 K/mm3 (0.9-3.2); Lymphocytes Percent Auto 13.2 % (18.3-44.2); Mean Corpuscular HGB Conc 31.1 g/dl (32-36); Mean Corpuscular Hemoglobin 26.5 pg (26-34); Mean Corpuscular Volume 85.3 fl (80-100); Mean Platelet Volume 10.1 fl (7.4-10.4); Monocytes Absolute Auto 0.8 K/mm3 (0.1-0.6); Monocytes Percent Auto 7.2 % (2.6-8.5); Neutrophils Absolute Auto 7.6 K/mm3 (1.3-6.7); Platelet Count Result 297 k/mm3 (150-375); Red Blood Count 3.47 M/mm3 (4.2-5.4); Red Cell Distribution Width 16.1 % (11.5-14.5); White Blood Count 11.1 K/mm3 (4.5-10.0)
[2022-02-10 22:59] LABS: Alanine Aminotransferase 17 U/L (6-35); Alkaline Phosphatase 107 U/L (38-126); Anion Gap 13 mmol/L (8-16); Aspartate Amino Transferase 25 U/L (14-36); Bilirubin,Total 0.4 mg/dL (0.2-1.3); Blood Urea Nitrogen 49 mg/dL (7-17); Calcium 9.2 mg/dL (8.4-10.2); Carbon Dioxide 26 mmol/L (22-30); Chloride 103 mmol/L (98-107); Estimated CRCL calculation 39 ml/min; Estimated Glomerular Filt Rate 34; Glucose 281 mg/dL (65-110); Potassium 4.3 mmol/L (3.4-5.0); Sodium 142 mmol/L (137-145)
[2022-02-10 23:08] LABS: NT Pro B Type Natriuretic Pept 886 pg/mL (5-100)
--- NOTE | 2022-02-10 23:16 | ED.SOB ---
HPI - SOB/Dyspnea General Chief Complaint: Shortness of Breath/Dyspnea Stated Complaint: shortness of breath, wheezing Time Seen by Provider: 02/10/22 21:14 Source: patient and family Mode of arrival: wheelchair Limitations: no limitations History of Present Illness HPI Narrative: 71-year-old with a history of COPD, RAINA, hypertension, diastolic CHF CKD, DM here with complaints of shortness of breath for past 1 day and since this morning she states she is more short of breath. She states that she gets extremely short winded when she walks for short duration. She denies any chest pain. Has occasional nonproductive cough. No history of fever or chills. Patient states that she has not taken any of her medications today. Patient had echocardiogram done in 2019 with ejection fraction of 62% MD elicited complaint: shortness of breath and cough Pertinent past history: COPD, congestive heart failure and other (CKD) Onset (ago): day(s) (1) Timing: constant Severity: moderate Exacerbating factors: exertion Relieving factors: oxygen, rest and bronchodilators Known history of: COPD, congestive heart failure and diabetes Associated symptoms: denies other symptoms Treatment prior to arrival: none Related Data Home oxygen amount: none Home Medications Medication Instructions Recorded Confirmed aspirin 81 mg tablet,delayed 81 mg PO HS 03/19/19 02/07/22 release (Aspir-Low) cyanocobalamin (vitamin B-12) 2,000 mcg PO DAILY 03/19/19 02/07/22 2,000 mcg tablet,extended release (Vitamin B-12 ER) fluticasone propionate 50 2 spray intranasal DAILY 03/19/19 02/07/22 mcg/actuation nasal spray,suspension insulin glargine 100 unit/mL (3 55 unit subcut QPM 07/04/21 02/07/22 mL) subcutaneous pen (Lantus Solostar U-100 Insulin) albuterol sulfate 90 mcg/actuation See Rx Instructions .Route 11/22/21 02/07/22 aerosol inhaler .COMPLEX PRN Wheezing gabapentin 800 mg tablet 800 mg PO HS 11/22/21 02/07/22 montelukast 10 mg tablet 10 mg QAM 11/22/21 02/07/22 pantoprazole 40 mg tablet,delayed 40 mg QAM 11/22/21 02/07/22 release verapamil 360 mg 24 hr 360 mg PO HS 11/22/21 02/07/22 capsule,extended release Allergies Allergy/AdvReac Type Severity Reaction Status Date / Time diphenhydramine Allergy Unknown restless Verified 02/10/22 21:29 legs nickel Allergy Unknown hives and Verified 02/10/22 21:29 itchy rash nifedipine Allergy Unknown palpitation Verified 02/10/22 21:29 s Sulfa (Sulfonamide Allergy Unknown Urticaria Verified 02/10/22 21:29 Antibiotics) and hives Xazhaop-RHY-YlS Reductase AdvReac Intermediate muscle Verified 02/10/22 21:29 Inhibitor cramps [Xsygtqj-Nxz-Zcx Reductase Inhibitor] CALCIUMCHANNEL AdvReac Unknown SEE COMMIT Uncoded 02/10/22 21:29 Review of Systems Review of Systems: All systems reviewed & are unremarkable except as noted in HPI and below Constitutional: Constitutional: Reports no additional constitutional complaints Eyes: Eyes: Reports no additional eye complaints ENT: Reports system reviewed and no additional complaints, except as documented Cardiovascular: Cardiovascular: Reports no additional cardiovascular complaints Respiratory: Respiratory: Reports as per HPI Gastrointestinal: Gastrointestinal: Reports no additional gastrointestinal complaints Musculoskeletal: Musculoskeletal: Reports no additional musculoskeletal complaints Neurologic: Reports system reviewed and no additional complaints, except as documented 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 Chronic diastolic (congestive) heart failure Chronic kidney disease, stage 3 unspecified Chronic kidney disease, stage III (moderate) COPD (chronic obstructive pulmonary disease) Coronary artery disease involving [place] heart without angina pectoris Depression ARACELY (generalized anxiety disorder) GERD without esopha
[2022-02-10] MEDS: ALBUTEROL SULFATE NEB 2.5 MG/3 ML INH INHALATION (23:22)
--- NOTE | 2022-02-10 23:24 | PM.IMHP ---
H&P: HPI History of Present Illness Date/Time: 02/10/22 23:24 Chief Complaint: shortness of breath Narrative: This is a 71-year-old female with past medical history significant for COPD, chronic diastolic heart failure, chronic kidney disease, coronary artery disease, generalized anxiety disorder, GERD, Gongora's esophagus, hypertension, peripheral neuropathy, restless leg syndrome, morbid obesity, patient presents to the emergency room due to shortness of breath, roughly 1 day duration getting progressively worse, shortness of breath with mild exertion, intermittent cough, nonproductive, no fevers, no rigors, no chest pain, has bilateral lower extremity swelling. In emergency room patient was found to have a systolic blood pressure above 200 and rapidly had desaturation into the 70% while on room air patient then was placed on high-flow nasal cannula however became progressively tachypneic requiring BiPAP. Preliminary workup was significant for Brain atretic peptide 800, creatinine 1.6, BUN 47 chest x-ray: Impression: 1: Cardiomegaly with interstitial edema. patient is been admitted for further evaluation management and treatment. Review of Systems Review of Systems: Shortness of breath Constitutional: Constitutional: Denies chills, Denies fever(s) and Denies night sweats Eyes: Eyes: Denies change in vision ENT: Denies dysphagia, Denies vertigo, Denies dizziness and Denies odynophagia Cardiovascular: Cardiovascular: Denies chest pain, Denies syncope, Denies irregular heart rhythm, Reports leg edema, Denies lightheadedness, Denies palpitations and Reports dyspnea on exertion Respiratory: Respiratory: Denies chest congestion, Reports cough, Denies pain on inspiration, Reports dyspnea and Reports wheezing Gastrointestinal: Gastrointestinal: Denies abdominal pain, Denies dyspepsia, Denies heartburn, Denies diarrhea, Denies nausea and Denies vomiting Genitourinary: Genitourinary: Denies dysuria Musculoskeletal: Musculoskeletal: Reports arthralgias (knee) Integumentary/Breasts: Skin/Breast: Denies rash Neurologic: Denies focal weakness and Denies Sensory deficit (Neuro) Psychiatric: Psychiatric: Reports no additional psychiatric complaints and Reports as per HPI Endocrine: Endocrine: Reports no additional endocrine complaints and Reports as per HPI Hematologic/Lymphatic: Hematologic/Lymphatic: Reports no additional hematologic/lymphatic complaints and Reports as per HPI Allergic/Immunologic: Allergic/Immunologic: Reports no additional allergic/immunologic complaints and Reports as per HPI [facility] Past Medical History Medical History (Updated 02/11/22 @ 02:31 by Willis Davis MD) 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 Chronic diastolic (congestive) heart failure Chronic kidney disease, stage 3 unspecified Chronic kidney disease, stage III (moderate) COPD (chronic obstructive pulmonary disease) Coronary artery disease involving [place] heart without angina pectoris Depression ARACELY (generalized anxiety disorder) GERD without esophagitis History of stroke Hypertensive heart disease with heart failure and stage 3 chronic kidney disease Hypothyroid Left knee DJD Long-term insulin use Peripheral polyneuropathy Pre-ulcerative calluses Type 2 diabetes mellitus with hyperglycemia Family History Family History Father Hypertension Family history of coronary artery disease Sibling Hypertension Family history of coronary artery disease Mother Cerebrovascular accident Other Asthma Depression Family history of Alzheimer's disease Family history of arthritis Family history of cardiovascular disease Family history of lymphoma Family history of obesity Family history of seizure disorder Social History Social History Smoking packs per day: 2 Smoking cigarettes per day: 40.0 Years smoked:
--- NOTE | 2022-02-10 23:36 | PC.NURSE ---
pt refusing to wear bp cuff while getting breathing treatment. stating it goes off every 10 min . pt educated that her BP is elevated and we are wanting to monitor it especially because we are giving her medication to treat it.
[2022-02-10] MEDS: hydrALAZINE HCL 20 MG/ML VIAL 10 MG IV PUSH (23:39)
[2022-02-11] VITALS (36 sets, daily range): BP systolic 135–212; BP diastolic 54–86; PULSE 59–97; RESP 17–28; TEMP 36.3–37.1; O2SAT 94–100; BMI 48.2
--- NOTE | 2022-02-11 | ECHO_ITS ---
Patient Info Name: Gregoria Rae Age: 71 years : 1950 Gender: Female Ht: 64 in Wt: 280 lbs BSA: 2.47 m2 HR: 99 bpm BP: 187 / 67 mmHg Technical Quality: Good Exam Date: 02/11/2022 8:56 AM Exam Location: [facility] Patient Status: Inpatient Admit Date: 02/10/2022 Staff Ordering Physician: Willis Davis MD [employer] Supervisor: Julio C Bales RDCS Attending Provider: Felix Macedo MD Referring Physician: Susan BELTRAN; Exam Type: CA echo doppler color flow Study Info Indications J96.90 - Respiratory failure, unspecified, unspecified whether with hypoxia or hypercapnia Complete two-dimensional, color flow and Doppler transthoracic echocardiogram is performed. Summary 1. Complete two-dimensional, color flow and Doppler transthoracic echocardiogram is performed. 2. Left ventricular chamber dimension is normal. 3. Left ventricular systolic function is normal, estimated at 60-65%. 4. The left ventricular diastolic function is abnormal. 5. E/e' 18 is elevated. 6. Left atrial chamber dimension is moderately enlarged. 7. There is mild aortic valve sclerosis. 8. The mitral valve has mildly thickened leaflets and moderately calcified annulus. 9. There is mild mitral valve regurgitation. 10. There is trace tricuspid valve regurgitation. Left Ventricle E/e' 18 is elevated. Left ventricular chamber dimension is normal. Left ventricular systolic function is normal, estimated at 60-65%. The left ventricular diastolic function is abnormal. Right Ventricle Right ventricular systolic function is normal and with normal TAPSE 2.2 cm. Right ventricular chamber dimension is normal. Left Atria Left atrial chamber dimension is moderately enlarged. Right Atria Right atrial chamber dimension is normal. Aortic Valve The aortic valve is trileaflet. There is mild aortic valve sclerosis. There is no aortic valve stenosis. There is no aortic valve regurgitation. Pulmonic Valve There is no pulmonic regurgitation. Mitral Valve The mitral valve has mildly thickened leaflets and moderately calcified annulus. There is no mitral valve stenosis. There is mild mitral valve regurgitation. Tricuspid Valve RVSP is not calculated due to an inadequate TR jet. There is trace tricuspid valve regurgitation. Pericardium/Pleural There is no pericardial effusion. Inferior Vena Cava Normal inferior vena cava with >50% collapse upon inspiration consistent with normal right atrial pressure, 5 mmHg. Aorta The aortic root size at the sinus of Valsalva is normal. Left Ventricular Outflow Tract Name Value Normal LVOT 2D LVOT Diameter 1.9 cm LVOT Doppler LVOT Peak Gradient 5 mmHg LVOT Mean Gradient 4 mmHg LVOT VTI 29 cm LVOT VTI/AV VTI Ratio 0.7 LVOT Stroke Volume 81 ml LVOT CO 6.5 l/min LVOT CI 2.6 l/min/m2 Mitral Valve
[2022-02-11] MEDS: methylPREDNISolone SOD SUCC 125 MG VIAL 60 MG IV PUSH ×3 (00:36→12:54)
--- NOTE | 2022-02-11 00:47 | PC.NURSE ---
This patient, Gregoria Rae, was admitted to IMU Room 232-01. Patient/family oriented to hospital policies and general routines including ID bracelet, bed and alarms, visiting hours, pain management, procedures, bathroom and other care routines, personal items, smoking policy, room service/diet, and visiting hours. Information on how to activate the Rapid Response Team has been discussed. Patient/Family are encouraged to report perceived risks to care and to ask questions if they do not understand what they are told or what they should do.
--- NOTE | 2022-02-11 01:20 | PC.NURSE ---
Pt being placed on bipap, Dr Davis at bedside.
[2022-02-11] MEDS: MORPHINE SULFATE (*CRX) 2 MG/ML INJ 1 MG IV PUSH (01:26)
[2022-02-11] MEDS: LORazepam INJ (*CRX) 2 MG/ML VIAL 1 MG IV PUSH (01:26)
[2022-02-11] MEDS: hydrALAZINE HCL 20 MG/ML VIAL 10 MG IV PUSH (01:43)
[2022-02-11] MEDS: ALBUTEROL SULFATE NEB 2.5 MG/3 ML INH 10 MG INHALATION (01:59)
[2022-02-11] MEDS: IPRATROPIUM BR 0.02% INH SOLN 0.5 MG/2.5 ML VIAL 1 MG INHALATION (02:00)
[2022-02-11 02:09] LABS: Basophils Absolute Auto 0.1 K/mm3 (0.0-0.1); Basophils Percent Auto 0.6 % (0.2-1.2); Eosinophils Absolute Auto 0.7 K/mm3 (0-0.3); Eosinophils Percent Auto 4.7 % (0-4.4); Hemoglobin 9.5 g/dL (12.0-15.0); Immature Granulocyte Absolute 0.06 K/mm3 (0.00-0.031); Immature Granulocyte Percent A 0.4 % (0-0.5); Lymphocytes Absolute Auto 1.05 K/mm3 (0.9-3.2); Lymphocytes Percent Auto 7.1 % (18.3-44.2); Mean Corpuscular HGB Conc 30.6 g/dl (32-36); Mean Corpuscular Hemoglobin 26.3 pg (26-34); Mean Corpuscular Volume 85.9 fl (80-100); Monocytes Percent Auto 6.8 % (2.6-8.5); Neutrophils Absolute Auto 11.9 K/mm3 (1.3-6.7); Neutrophils Percent Auto 80.4 % (45.5-73.1); Platelet Count Result 329 k/mm3 (150-375); Red Blood Count 3.61 M/mm3 (4.2-5.4); White Blood Count 14.8 K/mm3 (4.5-10.0)
[2022-02-11 02:27] LABS: Lactic Acid Reflex 0.9 mmol/L (0.7-2.0)
[2022-02-11 02:28] LABS: Anion Gap 16 mmol/L (8-16); Blood Urea Nitrogen 47 mg/dL (7-17); Calcium 9.4 mg/dL (8.4-10.2); Carbon Dioxide 25 mmol/L (22-30); Chloride 102 mmol/L (98-107); Estimated CRCL calculation 37 ml/min; Estimated Glomerular Filt Rate 32; Glucose 298 mg/dL (65-110); Magnesium 1.8 mg/dL (1.6-2.3); Phosphorus 3.8 mg/dL (2.5-4.5); Potassium 4.2 mmol/L (3.4-5.0); Sodium 143 mmol/L (137-145)
[2022-02-11 02:40] LABS: Troponin I < 0.012 ng/mL (0.000-0.034)
[2022-02-11 03:12] LABS: D Dimer 1.41 ug/mL (<0.48)
[2022-02-11] MEDS: INSULIN GLARGINE (*BKC) 100 UNITS/ML 50 UNITS SUB-Q ×2 (03:42→21:14)
[2022-02-11 03:45] LABS: Alveolar/Arterial O2 Gradient 154.2 mmHg; Base Excess ABG -2.1 mEq/l (+/-2.0); Carboxyhemoglobin 0.3 % THb (0-2.0); Fractional Inspired Oxygen 50 %; HCO3 ABG 22.6 mEq/l (22.0-26.0); Methemoglobin ABG 0.2 %THb (0-1.5); Oxygen Content ABG 14.2 %vol (16.0-22.0); Oxyhemoglobin 97.9 % THb (90.0-100.0); PCO2 ABG 38.2 mmHg (35.0-45.0); PO2 ABG 159.3 mmHg (80.0-100.0); PO2 FiO2 Ratio Arterial Blood 3.19 %; Reduced Hemoglobin 1.6 %THb (0-5.0); Total Hemoglobin 10.1 g/dL (12.0-18.0); pH ABG 7.389 (7.350-7.450)
[2022-02-11 03:46] LABS: Device NON-INVASIVE VENT; Modified Allen's Test Pass; Site Drawn RIGHT RADIAL
[2022-02-11 03:47] LABS: Non-Invasive Expiratory Pressure 5 CMH2O; Non-Invasive Inspiratory Pressure 12 CMH2O; Non-Invasive Vent Rate 18 /MIN
[2022-02-11 03:50] LABS: Glucose Point of Care 340 mg/dl (65-105)
[2022-02-11] MEDS: FUROSEMIDE INJ 40 MG/4 ML VIAL IV PUSH (06:02)
[2022-02-11] MEDS: ENOXAPARIN 100 MG/ML SYRINGE SUB-Q (06:03)
[2022-02-11] MEDS: ENOXAPARIN 30 MG/0.3 ML SYRINGE SUB-Q (06:03)
[2022-02-11] MEDS: LEVOTHYROXINE SODIUM 100 MCG TABLET 200 MCG PO (06:04)
[2022-02-11 06:57] LABS: Glucose Point of Care 329 mg/dl (65-105)
[2022-02-11] MEDS: IPRATROPIUM BR 0.02% INH SOLN 0.5 MG/2.5 ML VIAL INHALATION ×3 (08:22→20:27)
[2022-02-11] MEDS: ALBUTEROL SULFATE NEB 2.5 MG/3 ML INH 5 MG INHALATION ×3 (08:22→20:27)
[2022-02-11 08:36] LABS: Glucose Point of Care 345 mg/dl (65-105)
[2022-02-11] MEDS: FLUTICASONE/SALMETEROL 45-21 MCG INHALER 1 PUFF 2 PUFF INHALATION ×2 (08:51→20:27)
[2022-02-11] MEDS: INSULIN ASPART (*BKC) 100 UNITS/ML SUB-Q ×3 (08:52→17:54)
[2022-02-11] MEDS: PANTOPRAZOLE 40 MG TABLET PO (09:13)
[2022-02-11] MEDS: GABAPENTIN 300 MG CAPSULE 600 MG PO ×2 (09:14→17:56)
[2022-02-11] MEDS: IRBESARTAN 150 MG TABLET 300 MG PO (09:14)
[2022-02-11] MEDS: MONTELUKAST SODIUM 10 MG TABLET PO (09:14)
[2022-02-11] MEDS: FLUTICASONE PROPIONATE 0.05% NA SPR 16 GM BTL (*BKC) 2 SPRAY NASAL (09:15)
[2022-02-11] MEDS: CYANOCOBALAMIN 1,000 MCG TABLET 2000 MCG PO (09:15)
[2022-02-11] MEDS: CLOPIDOGREL BISULFATE 75 MG TABLET PO (09:15)
[2022-02-11] MEDS: VERAPAMIL HCL 180 MG TABLET ER 360 MG PO (09:16)
[2022-02-11] MEDS: FERROUS SULFATE 324 MG TABLET PO ×2 (09:16→17:56)
[2022-02-11] MEDS: ASPIRIN 81 MG CHEWABLE TABLET PO (09:16)
[2022-02-11] MEDS: ALPRAZolam (*CRX) 0.5 MG TABLET PO ×2 (09:18→17:56)
[2022-02-11] MEDS: traMADol HCL (*CRX) 50 MG TABLET PO (11:58)
[2022-02-11 12:12] LABS: Glucose Point of Care 338 mg/dl (65-105)
--- NOTE | 2022-02-11 13:09 | PM.IMPN ---
Progress Note: A&P Assessment and Plan (1) Respiratory failure, acute: Code(s): J96.00 - Acute respiratory failure, unspecified whether with hypoxia or hypercapnia Status: Acute Assessment and Plan: Started on BiPAP from the ER. likely secondary to uncontrolled hypertension and pulmonary edema in a setting of COPD chest x-ray reviewed elevated D-dimer and started on Lovenox therapeutic dose. CT angiogram PE protocol negative for PE. Will stop therapeutic Lovenox and change to prophylactic dose (2) COPD (chronic obstructive pulmonary disease): Code(s): J44.9 - Chronic obstructive pulmonary disease, unspecified Status: Acute Assessment and Plan: no change in sputum quality schedule breathing treatments systemic steroids will lower Solu Medrol continue to monitor (3) RAINA (obstructive sleep apnea): Code(s): G47.33 - Obstructive sleep apnea (adult) (pediatric) Status: Acute Assessment and Plan: currently on BiPAP (4) Chronic kidney disease, stage III (moderate): Code(s): N18.3 - Chronic kidney disease, stage 3 (moderate) Status: Acute Assessment and Plan: continue to monitor BUN and creatinine. Baseline creatinine mid 1s to 2 appears to be at baseline (5) GERD without esophagitis: Code(s): K21.9 - Gastro-esophageal reflux disease without esophagitis Status: Acute Assessment and Plan: PPI (6) ARACELY (generalized anxiety disorder): Code(s): F41.1 - Generalized anxiety disorder Status: Acute Assessment and Plan: resume home meds (7) Coronary artery disease involving [place] heart without angina pectoris: Code(s): I25.10 - Atherosclerotic heart disease of [place] coronary artery without angina pectoris Status: Acute Assessment and Plan: chest pain-free continue home meds (8) Chronic diastolic (congestive) heart failure: Code(s): I50.32 - Chronic diastolic (congestive) heart failure Status: Acute Assessment and Plan: Acute on chronic diastolic heart failure BNP at 800 diurese with 40 mg IV PID daily intake and output Street in last echocardiogram from 2019 ejection fraction 62% Recheck echo ordered (9) 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: Code(s): K22.70 - 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 Status: Acute Assessment and Plan: follow-up in the outpatient setting (10) Type 2 diabetes mellitus with hyperglycemia: Code(s): E11.65 - Type 2 diabetes mellitus with hyperglycemia Status: Acute Assessment and Plan: Accu-Cheks AC and HS continue home regimen (11) RLS (restless legs syndrome): Code(s): G25.81 - Restless legs syndrome Status: Acute Assessment and Plan: continue home meds Subjective Date/time seen: 02/11/22 13:09 Interval history: HPI:This is a 71-year-old female with past medical history significant for COPD, chronic diastolic heart failure, chronic kidney disease, coronary artery disease, generalized anxiety disorder, GERD, Gongora's esophagus, hypertension, peripheral neuropathy, restless leg syndrome, morbid obesity, patient presents to the emergency room? due to shortness of breath, roughly 1 day duration? getting? progressively worse,? shortness of breath with mild exertion, intermittent cough, nonproductive, no fevers, no rigors, no chest pain, has bilateral lower extremity swelling.? In emergency room patient was found to have a systolic blood pressure? above 200 and rapidly had desaturation into the 70% while on room air patient then was placed on high-flow nasal cannula however became progressively tachypneic requiring BiPAP.? Preliminary workup was significant for? Brain atretic peptide 800, creatinine 1.6, BUN? 47 chest x-ray: Impression: 1: Cardiomegaly with interstitial edema. ?patient is been admitted for further evaluation management and treatment. 02/11/2022 off BiPAP
[2022-02-11] MEDS: FUROSEMIDE INJ 40 MG/4 ML VIAL 20 MG IV PUSH (16:07)
[2022-02-11 17:30] LABS: Glucose Point of Care 459 mg/dl (65-105)
[2022-02-11] MEDS: INSULIN ASPART (*BKC) 100 UNITS/ML 15 UNITS SUB-Q (17:55)
[2022-02-11] MEDS: FUROSEMIDE INJ 100 MG/10 ML VIAL 60 MG IV PUSH (17:55)
[2022-02-11 20:14] LABS: Glucose Point of Care > 500 mg/dl (65-105)
[2022-02-11] MEDS: GABAPENTIN 400 MG CAPSULE 800 MG PO (21:15)
[2022-02-11] MEDS: methylPREDNISolone SOD SUCC 40 MG VIAL IV PUSH (21:15)
[2022-02-11] MEDS: INSULIN ASPART (*BKC) 100 UNITS/ML 20 UNITS SUB-Q (21:15)
[2022-02-11 22:25] LABS: Glucose Point of Care > 500 mg/dl (65-105)
[2022-02-12] VITALS (25 sets, daily range): BP systolic 134–157; BP diastolic 52–80; PULSE 53–80; RESP 12–23; TEMP 35.8–36.5; O2SAT 95–100
[2022-02-12 00:05] LABS: Glucose Point of Care > 500 mg/dl (65-105)
[2022-02-12] MEDS: INSULIN ASPART (*BKC) 100 UNITS/ML 20 UNITS SUB-Q ×7 (00:18→20:04)
[2022-02-12 01:57] LABS: Glucose Point of Care 496 mg/dl (65-105)
[2022-02-12] MEDS: IPRATROPIUM BR 0.02% INH SOLN 0.5 MG/2.5 ML VIAL INHALATION ×4 (03:00→20:59)
[2022-02-12] MEDS: ALBUTEROL SULFATE NEB 2.5 MG/3 ML INH 5 MG INHALATION ×4 (03:00→20:59)
[2022-02-12 04:13] LABS: Glucose Point of Care 427 mg/dl (65-105)
[2022-02-12 05:06] LABS: Basophils Percent Auto 0.1 % (0.2-1.2); Hematocrit 27.4 % (37.0-47.0); Hemoglobin 8.5 g/dL (12.0-15.0); Immature Granulocyte Absolute 0.09 K/mm3 (0.00-0.031); Lymphocytes Absolute Auto 0.72 K/mm3 (0.9-3.2); Lymphocytes Percent Auto 7.8 % (18.3-44.2); Mean Corpuscular Hemoglobin 26.5 pg (26-34); Mean Corpuscular Volume 85.4 fl (80-100); Mean Platelet Volume 10.2 fl (7.4-10.4); Monocytes Absolute Auto 0.4 K/mm3 (0.1-0.6); Neutrophils Percent Auto 87.1 % (45.5-73.1); Platelet Count Result 249 k/mm3 (150-375); Red Blood Count 3.21 M/mm3 (4.2-5.4); Red Cell Distribution Width 15.8 % (11.5-14.5); White Blood Count 9.2 K/mm3 (4.5-10.0)
[2022-02-12] MEDS: FUROSEMIDE INJ 100 MG/10 ML VIAL 60 MG IV PUSH (05:16)
[2022-02-12 05:21] LABS: Alanine Aminotransferase 22 U/L (6-35); Alkaline Phosphatase 98 U/L (38-126); Anion Gap 12 mmol/L (8-16); Aspartate Amino Transferase 24 U/L (14-36); Bilirubin,Total 0.3 mg/dL (0.2-1.3); Blood Urea Nitrogen 65 mg/dL (7-17); Calcium 8.9 mg/dL (8.4-10.2); Carbon Dioxide 24 mmol/L (22-30); Chloride 94 mmol/L (98-107); Estimated CRCL calculation 24 ml/min; Estimated Glomerular Filt Rate 19; Glucose 413 mg/dL (65-110); Magnesium 1.8 mg/dL (1.6-2.3); Potassium 4.7 mmol/L (3.4-5.0); Sodium 130 mmol/L (137-145)
[2022-02-12] MEDS: LEVOTHYROXINE SODIUM 100 MCG TABLET 200 MCG PO (06:46)
[2022-02-12 09:29] LABS: Glucose Point of Care 273 mg/dl (65-105)
[2022-02-12] MEDS: FLUTICASONE/SALMETEROL 45-21 MCG INHALER 1 PUFF 2 PUFF INHALATION ×2 (10:29→20:59)
[2022-02-12] MEDS: methylPREDNISolone SOD SUCC 40 MG VIAL IV PUSH (10:35)
[2022-02-12] MEDS: MONTELUKAST SODIUM 10 MG TABLET PO (10:35)
[2022-02-12] MEDS: GABAPENTIN 300 MG CAPSULE 600 MG PO ×2 (10:35→16:53)
[2022-02-12] MEDS: FLUTICASONE PROPIONATE 0.05% NA SPR 16 GM BTL (*BKC) 2 SPRAY NASAL (10:35)
[2022-02-12] MEDS: PANTOPRAZOLE 40 MG TABLET PO (10:35)
[2022-02-12] MEDS: CLOPIDOGREL BISULFATE 75 MG TABLET PO (10:36)
[2022-02-12] MEDS: CYANOCOBALAMIN 1,000 MCG TABLET 2000 MCG PO (10:36)
[2022-02-12] MEDS: ENOXAPARIN 40 MG/0.4 ML SYRINGE SUB-Q (10:36)
[2022-02-12] MEDS: VERAPAMIL HCL 180 MG TABLET ER 360 MG PO (10:36)
[2022-02-12] MEDS: ASPIRIN 81 MG CHEWABLE TABLET PO (10:37)
[2022-02-12] MEDS: FERROUS SULFATE 324 MG TABLET PO ×2 (10:37→16:54)
[2022-02-12] MEDS: INSULIN ASPART (*BKC) 100 UNITS/ML SUB-Q ×3 (10:37→16:53)
[2022-02-12] MEDS: ALPRAZolam (*CRX) 0.5 MG TABLET PO ×2 (10:38→16:54)
--- NOTE | 2022-02-12 13:07 | PM.IMPN ---
Progress Note: A&P Assessment and Plan (1) Respiratory failure, acute: Code(s): J96.00 - Acute respiratory failure, unspecified whether with hypoxia or hypercapnia Status: Acute Assessment and Plan: Started on BiPAP from the ER. likely secondary to uncontrolled hypertension and pulmonary edema in a setting of COPD chest x-ray reviewed elevated D-dimer and started on Lovenox therapeutic dose. CT angiogram PE protocol negative for PE. Stopped therapeutic Lovenox and changed to prophylactic dose (2) COPD (chronic obstructive pulmonary disease): Code(s): J44.9 - Chronic obstructive pulmonary disease, unspecified Status: Acute Assessment and Plan: no change in sputum quality schedule breathing treatments systemic steroids will lower Solu Medrol. Hyperglycemic related to Solu-Medrol continue to monitor (3) RAINA (obstructive sleep apnea): Code(s): G47.33 - Obstructive sleep apnea (adult) (pediatric) Status: Acute Assessment and Plan: currently on BiPAP (4) Chronic kidney disease, stage III (moderate): Code(s): N18.3 - Chronic kidney disease, stage 3 (moderate) Status: Acute Assessment and Plan: Baseline creatinine mid 1s to 2 Creatinine worsened to 2.5 today will hold diuresis today (5) GERD without esophagitis: Code(s): K21.9 - Gastro-esophageal reflux disease without esophagitis Status: Acute Assessment and Plan: PPI (6) ARACELY (generalized anxiety disorder): Code(s): F41.1 - Generalized anxiety disorder Status: Acute Assessment and Plan: resume home meds (7) Coronary artery disease involving [place] heart without angina pectoris: Code(s): I25.10 - Atherosclerotic heart disease of [place] coronary artery without angina pectoris Status: Acute Assessment and Plan: chest pain-free continue home meds (8) Chronic diastolic (congestive) heart failure: Code(s): I50.32 - Chronic diastolic (congestive) heart failure Status: Acute Assessment and Plan: Acute on chronic diastolic heart failure BNP at 800 diurese with 40 mg IV PID daily intake and output Street in last echocardiogram from 2019 ejection fraction 62% Recheck echo 02/11/2022: EF 60-65% abnormal diastolic function. No significant valvular abnormality (9) 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: Code(s): K22.70 - 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 Status: Acute Assessment and Plan: follow-up in the outpatient setting (10) Type 2 diabetes mellitus with hyperglycemia: Code(s): E11.65 - Type 2 diabetes mellitus with hyperglycemia Status: Acute Assessment and Plan: Accu-Cheks AC and HS continue home regimen (11) RLS (restless legs syndrome): Code(s): G25.81 - Restless legs syndrome Status: Acute Assessment and Plan: continue home meds Subjective Date/time seen: 02/12/22 13:07 Interval history: HPI:This is a 71-year-old female with past medical history significant for COPD, chronic diastolic heart failure, chronic kidney disease, coronary artery disease, generalized anxiety disorder, GERD, Gongora's esophagus, hypertension, peripheral neuropathy, restless leg syndrome, morbid obesity, patient presents to the emergency room? due to shortness of breath, roughly 1 day duration? getting? progressively worse,? shortness of breath with mild exertion, intermittent cough, nonproductive, no fevers, no rigors, no chest pain, has bilateral lower extremity swelling.? In emergency room patient was found to have a systolic blood pressure? above 200 and rapidly had desaturation into the 70% while on room air patient then was placed on high-flow nasal cannula however became progressively tachypneic requiring BiPAP.? Preliminary workup was significant for? Brain atretic peptide 800, creatinine 1.6, BUN? 47 chest x-ray: Impression: 1: Cardiomegaly with interstitial e
[2022-02-12 13:50] LABS: Glucose Point of Care 408 mg/dl (65-105)
[2022-02-12 16:48] LABS: Glucose Point of Care 437 mg/dl (65-105)
[2022-02-12 19:29] LABS: Anion Gap 21 mmol/L (8-16); Blood Urea Nitrogen 76 mg/dL (7-17); Calcium 8.8 mg/dL (8.4-10.2); Carbon Dioxide 19 mmol/L (22-30); Chloride 90 mmol/L (98-107); Estimated CRCL calculation 19 ml/min; Estimated Glomerular Filt Rate 14; Glucose 428 mg/dL (65-110); Potassium 4.9 mmol/L (3.4-5.0); Sodium 130 mmol/L (137-145)
[2022-02-12] MEDS: GABAPENTIN 400 MG CAPSULE 800 MG PO (20:03)
[2022-02-12 20:18] LABS: Glucose Point of Care > 500 mg/dl (65-105)
[2022-02-12] MEDS: SODIUM CHLORIDE 0.9% IV 1,000 ML 75 ML IV CONT (21:07)
[2022-02-12] MEDS: INSULIN GLARGINE (*BKC) 100 UNITS/ML 60 UNITS SUB-Q (21:07)
[2022-02-12 21:21] LABS: Glucose Point of Care > 500 mg/dl (65-105)
[2022-02-12 22:35] LABS: Glucose Point of Care > 500 mg/dl (65-105)
[2022-02-12] MEDS: SODIUM CHLORIDE 0.9% IV 250 ML IV CONT (22:45)
[2022-02-12] MEDS: INSULIN HUMAN REGULAR (*BKC) 100 UNITS/ML 20 UNITS IV PUSH (22:46)
[2022-02-13] VITALS (25 sets, daily range): BP systolic 128–158; BP diastolic 49–74; PULSE 55–82; RESP 16–26; TEMP 35.7–36.4; O2SAT 96–100
[2022-02-13 00:01] LABS: Glucose Point of Care 407 mg/dl (65-105)
[2022-02-13 01:05] LABS: Glucose Point of Care 398 mg/dl (65-105)
[2022-02-13] MEDS: INSULIN HUMAN REGULAR (*BKC) 100 UNITS/ML 8 UNITS IV PUSH (01:26)
[2022-02-13] MEDS: ALBUTEROL SULFATE NEB 2.5 MG/3 ML INH 5 MG INHALATION ×3 (02:03→21:31)
[2022-02-13] MEDS: IPRATROPIUM BR 0.02% INH SOLN 0.5 MG/2.5 ML VIAL INHALATION ×3 (02:03→21:31)
[2022-02-13 02:18] LABS: Glucose Point of Care 369 mg/dl (65-105)
[2022-02-13 04:37] LABS: Basophils Percent Auto 0.1 % (0.2-1.2); Eosinophils Percent Auto 0.2 % (0-4.4); Hematocrit 26.6 % (37.0-47.0); Hemoglobin 8.5 g/dL (12.0-15.0); Immature Granulocyte Percent A 0.6 % (0-0.5); Lymphocytes Absolute Auto 0.71 K/mm3 (0.9-3.2); Lymphocytes Percent Auto 4.6 % (18.3-44.2); Mean Corpuscular Hemoglobin 26.3 pg (26-34); Mean Corpuscular Volume 82.4 fl (80-100); Mean Platelet Volume 10.4 fl (7.4-10.4); Monocytes Absolute Auto 0.9 K/mm3 (0.1-0.6); Neutrophils Absolute Auto 13.7 K/mm3 (1.3-6.7); Neutrophils Percent Auto 88.5 % (45.5-73.1); Platelet Count Result 271 k/mm3 (150-375); Red Blood Count 3.23 M/mm3 (4.2-5.4); Red Cell Distribution Width 16.1 % (11.5-14.5); White Blood Count 15.5 K/mm3 (4.5-10.0)
[2022-02-13 04:54] LABS: Alanine Aminotransferase 20 U/L (6-35); Alkaline Phosphatase 83 U/L (38-126); Anion Gap 16 mmol/L (8-16); Aspartate Amino Transferase 18 U/L (14-36); Bilirubin,Total 0.2 mg/dL (0.2-1.3); Blood Urea Nitrogen 87 mg/dL (7-17); Calcium 8.5 mg/dL (8.4-10.2); Carbon Dioxide 20 mmol/L (22-30); Chloride 91 mmol/L (98-107); Estimated CRCL calculation 16 ml/min; Estimated Glomerular Filt Rate 12; Glucose 291 mg/dL (65-110); Magnesium 1.8 mg/dL (1.6-2.3); Potassium 5.1 mmol/L (3.4-5.0); Sodium 127 mmol/L (137-145)
[2022-02-13 05:58] LABS: Creatinine Urine 94.4 mg/dL; Urea Random Urine 228 MG/DL
[2022-02-13 06:05] LABS: Sodium Urine Random 20 meq/L
[2022-02-13] MEDS: SODIUM CHLORIDE 0.9% IV 250 ML IV CONT (06:09)
[2022-02-13] MEDS: LEVOTHYROXINE SODIUM 100 MCG TABLET 200 MCG PO (06:52)
[2022-02-13] MEDS: GABAPENTIN 300 MG CAPSULE 600 MG PO ×2 (09:11→16:47)
[2022-02-13] MEDS: MONTELUKAST SODIUM 10 MG TABLET PO (09:11)
[2022-02-13] MEDS: PANTOPRAZOLE 40 MG TABLET PO (09:11)
[2022-02-13] MEDS: CYANOCOBALAMIN 1,000 MCG TABLET 2000 MCG PO (09:11)
[2022-02-13] MEDS: FERROUS SULFATE 324 MG TABLET PO ×2 (09:12→16:48)
[2022-02-13] MEDS: predniSONE 20 MG TABLET 40 MG PO (09:12)
[2022-02-13] MEDS: CLOPIDOGREL BISULFATE 75 MG TABLET PO (09:12)
[2022-02-13] MEDS: VERAPAMIL HCL 180 MG TABLET ER 360 MG PO (09:12)
[2022-02-13] MEDS: ASPIRIN 81 MG CHEWABLE TABLET PO (09:12)
[2022-02-13] MEDS: FLUTICASONE PROPIONATE 0.05% NA SPR 16 GM BTL (*BKC) 2 SPRAY NASAL (09:13)
[2022-02-13] MEDS: ALPRAZolam (*CRX) 0.5 MG TABLET PO ×2 (09:16→16:49)
[2022-02-13 09:26] LABS: Glucose Point of Care 278 mg/dl (65-105)
[2022-02-13] MEDS: FLUTICASONE/SALMETEROL 45-21 MCG INHALER 1 PUFF 2 PUFF INHALATION ×2 (09:29→21:31)
[2022-02-13] MEDS: INSULIN ASPART (*BKC) 100 UNITS/ML SUB-Q ×3 (09:42→18:00)
[2022-02-13] MEDS: INSULIN ASPART (*BKC) 100 UNITS/ML 20 UNITS SUB-Q ×2 (09:43→12:38)
--- NOTE | 2022-02-13 10:39 | PM.IMPN ---
Progress Note: A&P Assessment and Plan (1) Respiratory failure, acute: Code(s): J96.00 - Acute respiratory failure, unspecified whether with hypoxia or hypercapnia Status: Acute Assessment and Plan: Started on BiPAP from the ER. likely secondary to uncontrolled hypertension and pulmonary edema in a setting of COPD chest x-ray reviewed elevated D-dimer and started on Lovenox therapeutic dose. CT angiogram PE protocol negative for PE. Stopped therapeutic Lovenox and changed to prophylactic dose (2) COPD (chronic obstructive pulmonary disease): Code(s): J44.9 - Chronic obstructive pulmonary disease, unspecified Status: Acute Assessment and Plan: no change in sputum quality schedule breathing treatments systemic steroids will lower Solu Medrol. Hyperglycemic related to Solu-Medrol. Switched to prednisone continue to monitor (3) RAINA (obstructive sleep apnea): Code(s): G47.33 - Obstructive sleep apnea (adult) (pediatric) Status: Acute Assessment and Plan: currently on BiPAP (4) Chronic kidney disease, stage III (moderate): Code(s): N18.3 - Chronic kidney disease, stage 3 (moderate) Status: Acute Assessment and Plan: Baseline creatinine mid 1s to 2 Creatinine worsened to 2.5 diuresis held continue to worsen in the evening to 3.2 gentle IV hydration started Urine studies with FEMA 0.6% and FEV urea 10.5% indicating prerenal Continue gentle IV hydration Renal consultation Street in place with no signs of obstruction (5) GERD without esophagitis: Code(s): K21.9 - Gastro-esophageal reflux disease without esophagitis Status: Acute Assessment and Plan: PPI (6) ARACELY (generalized anxiety disorder): Code(s): F41.1 - Generalized anxiety disorder Status: Acute Assessment and Plan: resume home meds (7) Coronary artery disease involving [place] heart without angina pectoris: Code(s): I25.10 - Atherosclerotic heart disease of [place] coronary artery without angina pectoris Status: Acute Assessment and Plan: chest pain-free continue home meds (8) Chronic diastolic (congestive) heart failure: Code(s): I50.32 - Chronic diastolic (congestive) heart failure Status: Acute Assessment and Plan: Acute on chronic diastolic heart failure BNP at 800 diurese with 40 mg IV PID daily intake and output Street in last echocardiogram from 2019 ejection fraction 62% Recheck echo 02/11/2022: EF 60-65% abnormal diastolic function. No significant valvular abnormality (9) 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: Code(s): K22.70 - 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 Status: Acute Assessment and Plan: follow-up in the outpatient setting (10) Type 2 diabetes mellitus with hyperglycemia: Code(s): E11.65 - Type 2 diabetes mellitus with hyperglycemia Status: Acute Assessment and Plan: Accu-Cheks AC and HS continue home regimen (11) RLS (restless legs syndrome): Code(s): G25.81 - Restless legs syndrome Status: Acute Assessment and Plan: continue home meds Subjective Date/time seen: 02/13/22 10:39 Interval history: HPI:This is a 71-year-old female with past medical history significant for COPD, chronic diastolic heart failure, chronic kidney disease, coronary artery disease, generalized anxiety disorder, GERD, Gongora's esophagus, hypertension, peripheral neuropathy, restless leg syndrome, morbid obesity, patient presents to the emergency room? due to shortness of breath, roughly 1 day duration? getting? progressively worse,? shortness of breath with mild exertion, intermittent cough, nonproductive, no fevers, no rigors, no chest pain, has bilateral lower extremity swelling.? In emergency room patient was found to have a systolic blood pressure? above 200 and rapidly had desaturation into the 70% while on room air patient then was placed
[2022-02-13 12:00] LABS: Glucose Point of Care 372 mg/dl (65-105)
[2022-02-13] MEDS: SODIUM CHLORIDE 0.9% IV 1,000 ML 75 ML IV CONT (12:37)
[2022-02-13] MEDS: HEPARIN SODIUM 5,000 UNITS/ML VIAL 5000 UNITS SUB-Q ×2 (12:38→21:42)
--- NOTE | 2022-02-13 13:06 | P.CONNP_ITS ---
Assessment and Plan Assessment and plan (1) MARINA (acute kidney injury): Code(s): N17.9 - Acute kidney failure, unspecified Status: Acute Assessment and Plan: * multifactorial etiology: * contrast exposure (CT scan PE protocol) * prerenal factors (as noted by urine electrolytes) * necessity of IV diuretics * fluctuating hemodynamics/blood pressure * rising creatinine with decline in urine output concerning * hyponatremia and metabolic acidosis are secondary to this issue * on gentle IVFs at his time * check renal ultrasound * follow trend of repeat labs and UOP (2) Stage 3b chronic kidney disease: Code(s): N18.32 - Chronic kidney disease, stage 3b Status: Acute Assessment and Plan: * baseline creatinine runs ~ 1.5 - 1.6mg/dl (at best) but has been as high as 2.1mg/dl * likely due to CAD/CHF, vascular disease, diabetes, and age-related change (3) Acute hypoxemic respiratory failure: Code(s): J96.01 - Acute respiratory failure with hypoxia Status: Chronic Assessment and Plan: * multiple issues: * acute on chronic CHF/pulmonary edema * COPD * RAINA * uncontrolled HTN * doing better at this time * holding diuresis in the setting of #1 * on nebulizer treatments, supplemental oxygen, and steroids * BiPAP as needed (4) Acute on chronic diastolic heart failure: Code(s): I50.33 - Acute on chronic diastolic (congestive) heart failure Status: Acute Assessment and Plan: * treated with IV diuretics * follow repeat CXRs (clinically seems better) * follow daily weights and I/Os * Echo results noted (5) Hypertension: Code(s): I10 - Essential (primary) hypertension Status: Chronic Assessment and Plan: * reasonable control at this time * would avoid overcontrol given #1 * follow trend of hemodynamics (6) Anemia: Code(s): D64.9 - Anemia, unspecified Status: Acute Assessment and Plan: * likely due to MARINA, CKD, and acute illness * follow H/H (7) Type 2 diabetes mellitus with hyperglycemia: Code(s): E11.65 - Type 2 diabetes mellitus with hyperglycemia Status: Chronic Assessment and Plan: * follow accuchecks * glycemic control Long and extensive discussion (> 20 minutes) with patient and family at bedside regarding her MARINA/ARF and my 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 Will continue to follow. History of Present Illness Reason for Consult Consult date: 02/13/22 Reason for consult: acute renal failure (on chronic kidney disease) Chief Complaint Chief complaint: copd, chf History of Present Illness Narrative: The patient is a 71-year-old female with a past medical history as outlined below who presented to [facility] Emergency room with complaints of shortness of breath. The patient reported that her shortness of breath started about 24 hours prior to her presentation and has progressively gotten worse since that time. She endorses shortness of breath both at rest as well as with mild exertion and a intermittent nonproductive cough as well. She denies any fevers, chills, chest pain but does note some increase in lower extremity edema. Given these complaints, she came to the emergency room for further evaluation. Workup and evaluation in the emergency room demonstrated
--- NOTE | 2022-02-13 13:06 | PM.CNNEP ---
Assessment and Plan Assessment and plan (1) MARINA (acute kidney injury): Code(s): N17.9 - Acute kidney failure, unspecified Status: Acute Assessment and Plan: multifactorial etiology: contrast exposure (CT scan PE protocol) prerenal factors (as noted by urine electrolytes) necessity of IV diuretics fluctuating hemodynamics/blood pressure rising creatinine with decline in urine output concerning hyponatremia and metabolic acidosis are secondary to this issue on gentle IVFs at his time check renal ultrasound follow trend of repeat labs and UOP (2) Stage 3b chronic kidney disease: Code(s): N18.32 - Chronic kidney disease, stage 3b Status: Acute Assessment and Plan: baseline creatinine runs ~ 1.5 - 1.6mg/dl (at best) but has been as high as 2.1mg/dl likely due to CAD/CHF, vascular disease, diabetes, and age-related change (3) Acute hypoxemic respiratory failure: Code(s): J96.01 - Acute respiratory failure with hypoxia Status: Chronic Assessment and Plan: multiple issues: acute on chronic CHF/pulmonary edema COPD RAINA uncontrolled HTN doing better at this time holding diuresis in the setting of #1 on nebulizer treatments, supplemental oxygen, and steroids BiPAP as needed (4) Acute on chronic diastolic heart failure: Code(s): I50.33 - Acute on chronic diastolic (congestive) heart failure Status: Acute Assessment and Plan: treated with IV diuretics follow repeat CXRs (clinically seems better) follow daily weights and I/Os Echo results noted (5) Hypertension: Code(s): I10 - Essential (primary) hypertension Status: Chronic Assessment and Plan: reasonable control at this time would avoid overcontrol given #1 follow trend of hemodynamics (6) Anemia: Code(s): D64.9 - Anemia, unspecified Status: Acute Assessment and Plan: likely due to MARINA, CKD, and acute illness follow H/H (7) Type 2 diabetes mellitus with hyperglycemia: Code(s): E11.65 - Type 2 diabetes mellitus with hyperglycemia Status: Chronic Assessment and Plan: follow accuchecks glycemic control Long and extensive discussion (> 20 minutes) with patient and family at bedside regarding her MARINA/ARF and my concerns that she 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 Will continue to follow. History of Present Illness Reason for Consult Consult date: 02/13/22 Reason for consult: acute renal failure (on chronic kidney disease) Chief Complaint Chief complaint: copd, chf History of Present Illness Narrative: The patient is a 71-year-old female with a past medical history as outlined below who presented to [facility] Emergency room with complaints of shortness of breath. The patient reported that her shortness of breath started about 24 hours prior to her presentation and has progressively gotten worse since that time. She endorses shortness of breath both at rest as well as with mild exertion and a intermittent nonproductive cough as well. She denies any fevers, chills, chest pain but does note some increase in lower extremity edema. Given these complaints, she came to the emergency room for further evaluation. Workup and evaluation in the emergency room demonstrated the patient to be quite hypertensive with a systolic blood pressure greater than 200 and significant hypoxia with O2 saturations of 70% on room air. She was placed on high-flow nasal cannula with some improvement in her oxygen saturations but she continued to be quite tachypneic and this was eventually transitioned to BiPAP. Routine blood work demonstrated elevated BNP, labs consistent with her known history of chronic kidney disease, and a chest x-ray
[2022-02-13 16:45] LABS: Glucose Point of Care 421 mg/dl (65-105)
[2022-02-13] MEDS: INSULIN ASPART (*BKC) 100 UNITS/ML 30 UNITS SUB-Q (18:13)
[2022-02-13 19:52] LABS: Glucose Point of Care 422 mg/dl (65-105)
[2022-02-13] MEDS: GABAPENTIN 400 MG CAPSULE 800 MG PO (21:42)
[2022-02-13] MEDS: INSULIN GLARGINE (*BKC) 100 UNITS/ML 70 UNITS SUB-Q (21:43)
[2022-02-14] VITALS (29 sets, daily range): BP systolic 105–153; BP diastolic 62–86; PULSE 60–87; RESP 20–28; TEMP 35.9–36.7; O2SAT 94–98
[2022-02-14] MEDS: SODIUM CHLORIDE 0.9% IV 1,000 ML 75 ML IV CONT (01:17)
[2022-02-14] MEDS: IPRATROPIUM BR 0.02% INH SOLN 0.5 MG/2.5 ML VIAL INHALATION ×4 (03:12→20:28)
[2022-02-14] MEDS: ALBUTEROL SULFATE NEB 2.5 MG/3 ML INH 5 MG INHALATION ×4 (03:12→20:27)
[2022-02-14 05:00] LABS: Basophils Percent Auto 0.1 % (0.2-1.2); Eosinophils Absolute Auto 0.1 K/mm3 (0-0.3); Eosinophils Percent Auto 0.3 % (0-4.4); Hematocrit 26.7 % (37.0-47.0); Hemoglobin 8.5 g/dL (12.0-15.0); Immature Granulocyte Absolute 0.33 K/mm3 (0.00-0.031); Immature Granulocyte Percent A 2.1 % (0-0.5); Lymphocytes Absolute Auto 1.19 K/mm3 (0.9-3.2); Lymphocytes Percent Auto 7.5 % (18.3-44.2); Mean Corpuscular HGB Conc 31.8 g/dl (32-36); Mean Corpuscular Hemoglobin 26.3 pg (26-34); Mean Corpuscular Volume 82.7 fl (80-100); Mean Platelet Volume 10.4 fl (7.4-10.4); Monocytes Absolute Auto 0.9 K/mm3 (0.1-0.6); Monocytes Percent Auto 5.5 % (2.6-8.5); Neutrophils Absolute Auto 13.4 K/mm3 (1.3-6.7); Neutrophils Percent Auto 84.5 % (45.5-73.1); Platelet Count Result 219 k/mm3 (150-375); Red Blood Count 3.23 M/mm3 (4.2-5.4); White Blood Count 15.8 K/mm3 (4.5-10.0)
[2022-02-14 05:26] LABS: Alanine Aminotransferase 21 U/L (6-35); Albumin Level 3.8 g/dL (3.5-5.1); Alkaline Phosphatase 83 U/L (38-126); Anion Gap 15 mmol/L (8-16); Aspartate Amino Transferase 19 U/L (14-36); Bilirubin,Total 0.3 mg/dL (0.2-1.3); Blood Urea Nitrogen 110 mg/dL (7-17); Calcium 7.9 mg/dL (8.4-10.2); Carbon Dioxide 16 mmol/L (22-30); Chloride 92 mmol/L (98-107); Estimated CRCL calculation 13 ml/min; Estimated Glomerular Filt Rate 9; Glucose 257 mg/dL (65-110); Magnesium 1.7 mg/dL (1.6-2.3); Potassium 5.4 mmol/L (3.4-5.0); Sodium 123 mmol/L (137-145)
[2022-02-14] MEDS: LEVOTHYROXINE SODIUM 100 MCG TABLET 200 MCG PO (06:06)
[2022-02-14] MEDS: SODIUM BICARBONATE 8.4% 75 MEQ in SODIUM CHLORIDE 0.45% 1,000 ML 65 MEQ IV CONT (07:40)
[2022-02-14 08:06] LABS: Glucose Point of Care 216 mg/dl (65-105)
[2022-02-14] MEDS: FLUTICASONE/SALMETEROL 45-21 MCG INHALER 1 PUFF 2 PUFF INHALATION ×2 (08:11→20:27)
[2022-02-14] MEDS: FERROUS SULFATE 324 MG TABLET PO ×2 (09:43→17:56)
[2022-02-14] MEDS: FLUTICASONE PROPIONATE 0.05% NA SPR 16 GM BTL (*BKC) 2 SPRAY NASAL (09:43)
[2022-02-14] MEDS: ALPRAZolam (*CRX) 0.5 MG TABLET PO ×2 (09:43→17:56)
[2022-02-14] MEDS: PANTOPRAZOLE 40 MG TABLET PO (09:45)
[2022-02-14] MEDS: predniSONE 20 MG TABLET 40 MG PO (09:45)
[2022-02-14] MEDS: VERAPAMIL HCL 180 MG TABLET ER 360 MG PO (09:45)
[2022-02-14] MEDS: HEPARIN SODIUM 5,000 UNITS/ML VIAL 5000 UNITS SUB-Q ×2 (09:45→20:11)
[2022-02-14] MEDS: GABAPENTIN 300 MG CAPSULE 600 MG PO ×2 (09:45→17:57)
[2022-02-14] MEDS: CLOPIDOGREL BISULFATE 75 MG TABLET PO (09:45)
[2022-02-14] MEDS: MONTELUKAST SODIUM 10 MG TABLET PO (09:45)
[2022-02-14] MEDS: ASPIRIN 81 MG CHEWABLE TABLET PO (09:45)
[2022-02-14] MEDS: CYANOCOBALAMIN 1,000 MCG TABLET 2000 MCG PO (09:46)
--- NOTE | 2022-02-14 09:48 | P.PNNP_ITS ---
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 (2) Stage 3b chronic kidney disease: Code(s): N18.32 - Chronic kidney disease, stage 3b Status: Acute Assessment and Plan: * baseline creatinine runs ~ 1.5 - 1.6mg/dl (at best) but has been as high as 2.1mg/dl * likely due to CAD/CHF, vascular disease, diabetes, and age-related change (3) Acute hypoxemic respiratory failure: Code(s): J96.01 - Acute respiratory failure with hypoxia Status: Chronic Assessment and Plan: * multiple issues: * acute on chronic CHF/pulmonary edema * COPD * RAINA * uncontrolled HTN * doing better at this time * holding diuresis and ARB in the setting of #1 * on nebulizer treatments, supplemental oxygen, and steroids * BiPAP as needed (4) Acute on chronic diastolic heart failure: Code(s): I50.33 - Acute on chronic diastolic (congestive) heart failure Status: Acute Assessment and Plan: * treated with IV diuretics * follow repeat CXRs (clinically seems better) * follow daily weights and I/Os * Echo results noted (5) Hypertension: Code(s): I10 - Essential (primary) hypertension Status: Chronic Assessment and Plan: * reasonable control at this time * would avoid overcontrol given #1 * follow trend of hemodynamics (6) Anemia: Code(s): D64.9 - Anemia, unspecified Status: Acute Assessment and Plan: * likely due to MARINA, CKD, and acute illness * follow H/H (7) Type 2 diabetes mellitus with hyperglycemia: Code(s): E11.65 - Type 2 diabetes mellitus with hyperglycemia Status: Chronic Assessment and Plan: * follow accuchecks * glycemic control Another discussion (> 20 minutes) with patient regarding her deteriorating renal function in association with worsening metabolic acidosis and declining urine output; I once again re-iterated my concerns that she may need renal replacement therapy/dialysis if her condition does not improve in the next 24 - 48 hours; she appeared to voice understanding. Will continue to follow. Subjective Date/time seen: 02/14/22 09:48 Noted worsening kidney function associated with dropping sodium, rising potassium, and progression of metabolic acidosis in conjunction with diminished urine output despite trial of IVFs; she states he feels fine otherwise. Exam Narrative: General: WD/WN female in NAD Heart: normal S1 and S2; no rub Lungs: coarse breath sounds with a few wheezes noted Abdomen: soft, nontender, nondistended, positive bowel sounds Extremities: no cyanosis or clubbing; 1+ edema Skin: warm and dry Objective Data Vital Signs Vital Signs: Vital Signs Temp Pulse Resp BP Pulse Ox O2 Del Method FiO2 02/14/22 08:22 67
--- NOTE | 2022-02-14 09:48 | PM.PNNEP ---
Progress Note: A&P Assessment and Plan (1) MARINA (acute kidney injury): Code(s): N17.9 - Acute kidney failure, unspecified Status: Acute Assessment and Plan: multifactorial etiology: contrast exposure (CT scan PE protocol) prerenal factors (as noted by urine electrolytes) necessity of IV diuretics fluctuating hemodynamics/blood pressure rising creatinine with decline in urine output continues hyponatremia and metabolic acidosis are secondary renal dysfunction as well change to bicarb IVFs fluids follow-up on renal ultrasound follow trend of repeat labs and UOP she remains at high risk for WRAPPER OFF/dialysis (2) Stage 3b chronic kidney disease: Code(s): N18.32 - Chronic kidney disease, stage 3b Status: Acute Assessment and Plan: baseline creatinine runs ~ 1.5 - 1.6mg/dl (at best) but has been as high as 2.1mg/dl likely due to CAD/CHF, vascular disease, diabetes, and age-related change (3) Acute hypoxemic respiratory failure: Code(s): J96.01 - Acute respiratory failure with hypoxia Status: Chronic Assessment and Plan: multiple issues: acute on chronic CHF/pulmonary edema COPD RAINA uncontrolled HTN doing better at this time holding diuresis and ARB in the setting of #1 on nebulizer treatments, supplemental oxygen, and steroids BiPAP as needed (4) Acute on chronic diastolic heart failure: Code(s): I50.33 - Acute on chronic diastolic (congestive) heart failure Status: Acute Assessment and Plan: treated with IV diuretics follow repeat CXRs (clinically seems better) follow daily weights and I/Os Echo results noted (5) Hypertension: Code(s): I10 - Essential (primary) hypertension Status: Chronic Assessment and Plan: reasonable control at this time would avoid overcontrol given #1 follow trend of hemodynamics (6) Anemia: Code(s): D64.9 - Anemia, unspecified Status: Acute Assessment and Plan: likely due to MARINA, CKD, and acute illness follow H/H (7) Type 2 diabetes mellitus with hyperglycemia: Code(s): E11.65 - Type 2 diabetes mellitus with hyperglycemia Status: Chronic Assessment and Plan: follow accuchecks glycemic control Another discussion (> 20 minutes) with patient regarding her deteriorating renal function in association with worsening metabolic acidosis and declining urine output; I once again re-iterated my concerns that she may need renal replacement therapy/dialysis if her condition does not improve in the next 24 - 48 hours; she appeared to voice understanding. Will continue to follow. Subjective Date/time seen: 02/14/22 09:48 Noted worsening kidney function associated with dropping sodium, rising potassium, and progression of metabolic acidosis in conjunction with diminished urine output despite trial of IVFs; she states he feels fine otherwise. Exam Narrative: General: WD/WN female in NAD Heart: normal S1 and S2; no rub Lungs: coarse breath sounds with a few wheezes noted Abdomen: soft, nontender, nondistended, positive bowel sounds Extremities: no cyanosis or clubbing; 1+ edema Skin: warm and dry Objective Data Vital Signs Vital Signs: Vital Signs Temp Pulse Resp BP Pulse Ox O2 Del Method FiO2 02/14/22 08:22 67 20 02/14/22 08:18 35.9 C L 68 22 H 105/62 94 02/14/22 08:14 69 20 96 Room Air 02/14/22 08:11 69 20 02/14/22 06:00 72 02/14/22 04:00 74 20 98 Room Air 35 02/14/22 04:00 74 02/14/22 04:00 36.5 C 68 20 148/86 H 98 02/14/22 03:22 68 20 02/14/22 03:16 66 20 95 BiPAP 02/14/22 03:12 66 20 02/14/22 02:00 64 02/14/22 01:23 70 20 97 BiPAP 35 02/14/22 00:00 70 20 97 BiPAP 35 02/14/22 00:00 70 02/13/22 23:42 36.1 C L 79 20 158/71 H 97 02/13/22 22:00 70 02/13/22 2
[2022-02-14] MEDS: INSULIN ASPART (*BKC) 100 UNITS/ML SUB-Q ×2 (09:55→12:06)
[2022-02-14] MEDS: INSULIN ASPART (*BKC) 100 UNITS/ML 30 UNITS SUB-Q ×3 (09:56→17:58)
[2022-02-14] MEDS: polyethylene glycoL 3350 17 GM POWD.PACK PO (12:06)
[2022-02-14 12:14] LABS: Glucose Point of Care 266 mg/dl (65-105)
--- NOTE | 2022-02-14 15:16 | PM.IMPN ---
Progress Note: A&P Assessment and Plan (1) Respiratory failure, acute: Code(s): J96.00 - Acute respiratory failure, unspecified whether with hypoxia or hypercapnia Status: Acute Assessment and Plan: Started on BiPAP from the ER. likely secondary to uncontrolled hypertension and pulmonary edema in a setting of COPD chest x-ray reviewed elevated D-dimer and started on Lovenox therapeutic dose. CT angiogram PE protocol negative for PE. Stopped therapeutic Lovenox and changed to prophylactic dose Switched to heparin subQ due to renal failure (2) COPD (chronic obstructive pulmonary disease): Code(s): J44.9 - Chronic obstructive pulmonary disease, unspecified Status: Acute Assessment and Plan: no change in sputum quality schedule breathing treatments systemic steroids will lower Solu Medrol. Hyperglycemic related to Solu-Medrol. Switched to prednisone continue to monitor she was wheezy on presentation and possible COPD exacerbation an etiology as well (3) RAINA (obstructive sleep apnea): Code(s): G47.33 - Obstructive sleep apnea (adult) (pediatric) Status: Acute Assessment and Plan: currently on BiPAP at night and p.r.n. during daytime (4) Chronic kidney disease, stage III (moderate): Code(s): N18.3 - Chronic kidney disease, stage 3 (moderate) Status: Acute Assessment and Plan: Baseline creatinine mid 1s to 2 Creatinine worsened to 2.5 diuresis held continue to worsen in the evening to 3.2 gentle IV hydration started Urine studies with FEMA 0.6% and FEV urea 10.5% indicating prerenal Continue gentle IV hydration . This has been switched to sodium bicarb Renal consultation Street in place with no signs of obstruction. Renal ultrasound with no hydronephrosis Combination of diuresis recent contrast use likely etiology for his renal failure Patient remains oliguric with increasing BUN/creatinine High risk for needing start of dialysis Appreciate renal input (5) GERD without esophagitis: Code(s): K21.9 - Gastro-esophageal reflux disease without esophagitis Status: Acute Assessment and Plan: PPI (6) ARACELY (generalized anxiety disorder): Code(s): F41.1 - Generalized anxiety disorder Status: Acute Assessment and Plan: resume home meds (7) Coronary artery disease involving [place] heart without angina pectoris: Code(s): I25.10 - Atherosclerotic heart disease of [place] coronary artery without angina pectoris Status: Acute Assessment and Plan: chest pain-free continue home meds (8) Chronic diastolic (congestive) heart failure: Code(s): I50.32 - Chronic diastolic (congestive) heart failure Status: Acute Assessment and Plan: Acute on chronic diastolic heart failure BNP at 800 diurese with 40 mg IV PID daily intake and output Street in last echocardiogram from 2019 ejection fraction 62% Recheck echo 02/11/2022: EF 60-65% abnormal diastolic function. No significant valvular abnormality (9) 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: Code(s): K22.70 - 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 Status: Acute Assessment and Plan: follow-up in the outpatient setting (10) Type 2 diabetes mellitus with hyperglycemia: Code(s): E11.65 - Type 2 diabetes mellitus with hyperglycemia Status: Chronic Assessment and Plan: Accu-Cheks AC and HS continue home regimen (11) RLS (restless legs syndrome): Code(s): G25.81 - Restless legs syndrome Status: Acute Assessment and Plan: continue home meds Subjective Date/time seen: 02/14/22 15:17 Interval history: HPI:This is a 71-year-old female with past medical history significant for COPD, chronic diastolic heart failure, chronic kidney disease, coronary artery disease, generalized anxiety disorder, GERD, Gongora's esophagus, hypertension, peripheral neuropathy, restless leg syndrome, m
[2022-02-14 15:26] LABS: Alveolar/Arterial O2 Gradient 60.3 mmHg; Base Excess ABG -7.3 mEq/l (+/-2.0); Fractional Inspired Oxygen 21 %; PCO2 ABG 41.2 mmHg (35.0-45.0); PO2 FiO2 Ratio Arterial Blood 1.91 %; Total Hemoglobin 9.9 g/dL (12.0-18.0)
[2022-02-14 15:35] LABS: PO2 ABG 40.1 mmHg (80.0-100.0); pH ABG 7.281 (7.350-7.450)
[2022-02-14 15:36] LABS: Device ROOM AIR; Modified Allen's Test Pass; Oxygen Saturation ABG 68.8 % (95.0-100.0); Oxyhemoglobin 71.9 % THb (90.0-100.0); Site Drawn RIGHT RADIAL
[2022-02-14 16:41] LABS: Glucose Point of Care 149 mg/dl (65-105)
[2022-02-14 17:40] LABS: Anion Gap 18 mmol/L (8-16); Blood Urea Nitrogen 112 mg/dL (7-17); Calcium 7.8 mg/dL (8.4-10.2); Carbon Dioxide 16 mmol/L (22-30); Chloride 89 mmol/L (98-107); Estimated CRCL calculation 12 ml/min; Estimated Glomerular Filt Rate 8; Glucose 150 mg/dL (65-110); Phosphorus 5.8 mg/dL (2.5-4.5); Potassium 5.7 mmol/L (3.4-5.0); Sodium 123 mmol/L (137-145)
[2022-02-14] MEDS: GABAPENTIN 400 MG CAPSULE 800 MG PO (20:11)
[2022-02-14] MEDS: INSULIN GLARGINE (*BKC) 100 UNITS/ML 70 UNITS SUB-Q (20:12)
[2022-02-14 20:18] LABS: Glucose Point of Care 212 mg/dl (65-105)
[2022-02-14] MEDS: SODIUM ZIRCONIUM CYCLOSILICATE 10 GM POWD.PACK PO (22:51)
[2022-02-14] MEDS: SODIUM BICARBONATE 8.4% 75 MEQ in SODIUM CHLORIDE 0.45% 1,000 ML IV CONT (22:51)
[2022-02-15] VITALS (27 sets, daily range): BP systolic 139–189; BP diastolic 61–83; PULSE 69–79; RESP 12–24; TEMP 35.6–36.7; O2SAT 96–100
[2022-02-15] MEDS: ALBUTEROL SULFATE NEB 2.5 MG/3 ML INH 5 MG INHALATION ×2 (02:06→08:32)
[2022-02-15] MEDS: IPRATROPIUM BR 0.02% INH SOLN 0.5 MG/2.5 ML VIAL INHALATION ×4 (02:06→21:29)
[2022-02-15 04:50] LABS: Basophils Percent Auto 0.1 % (0.2-1.2); Eosinophils Percent Auto 0.1 % (0-4.4); Hematocrit 25.8 % (37.0-47.0); Hemoglobin 8.3 g/dL (12.0-15.0); Immature Granulocyte Absolute 0.39 K/mm3 (0.00-0.031); Immature Granulocyte Percent A 2.8 % (0-0.5); Lymphocytes Absolute Auto 1.56 K/mm3 (0.9-3.2); Lymphocytes Percent Auto 11.3 % (18.3-44.2); Mean Corpuscular HGB Conc 32.2 g/dl (32-36); Mean Corpuscular Hemoglobin 26.5 pg (26-34); Mean Corpuscular Volume 82.4 fl (80-100); Mean Platelet Volume 10.3 fl (7.4-10.4); Monocytes Absolute Auto 1.2 K/mm3 (0.1-0.6); Monocytes Percent Auto 8.5 % (2.6-8.5); Neutrophils Absolute Auto 10.7 K/mm3 (1.3-6.7); Neutrophils Percent Auto 77.2 % (45.5-73.1); Platelet Count Result 276 k/mm3 (150-375); Red Blood Count 3.13 M/mm3 (4.2-5.4); Red Cell Distribution Width 16.4 % (11.5-14.5); White Blood Count 13.8 K/mm3 (4.5-10.0)
[2022-02-15 05:02] LABS: INR 1.2; Prothrombin Time 14.3 Seconds (11.1-14.7)
[2022-02-15 05:03] LABS: Alanine Aminotransferase 21 U/L (6-35); Alkaline Phosphatase 74 U/L (38-126); Anion Gap 18 mmol/L (8-16); Aspartate Amino Transferase 21 U/L (14-36); Bilirubin,Total 0.4 mg/dL (0.2-1.3); Blood Urea Nitrogen 118 mg/dL (7-17); Calcium 7.4 mg/dL (8.4-10.2); Carbon Dioxide 18 mmol/L (22-30); Chloride 88 mmol/L (98-107); Estimated CRCL calculation 12 ml/min; Estimated Glomerular Filt Rate 8; Glucose 115 mg/dL (65-110); Magnesium 1.6 mg/dL (1.6-2.3); Potassium 5.6 mmol/L (3.4-5.0); Sodium 124 mmol/L (137-145)
[2022-02-15] MEDS: LEVOTHYROXINE SODIUM 100 MCG TABLET 200 MCG PO (05:07)
[2022-02-15 05:46] LABS: Hepatitis B Surface Antigen Negative (Negative)
[2022-02-15 06:03] LABS: Hepatitis B Surface Anti Res Negative
[2022-02-15 07:24] LABS: Glucose Point of Care 74 mg/dl (65-105)
[2022-02-15] MEDS: FLUTICASONE/SALMETEROL 45-21 MCG INHALER 1 PUFF 2 PUFF INHALATION (08:33)
[2022-02-15 08:43] LABS: NT Pro B Type Natriuretic Pept 1620 pg/mL (5-100)
--- NOTE | 2022-02-15 09:10 | PM.IMPN ---
Progress Note: A&P Assessment and Plan (1) Respiratory failure, acute: Code(s): J96.00 - Acute respiratory failure, unspecified whether with hypoxia or hypercapnia Status: Acute Assessment and Plan: Continue BiPAP, appreciate pulmonology consultation PE ruled out, suspect symptoms are secondary to uncontrolled hypertension a causing pulmonary edema with underlying COPD (2) COPD (chronic obstructive pulmonary disease): Code(s): J44.9 - Chronic obstructive pulmonary disease, unspecified Status: Acute Assessment and Plan: Continue steroids, breathing treatment (3) RAINA (obstructive sleep apnea): Code(s): G47.33 - Obstructive sleep apnea (adult) (pediatric) Status: Acute Assessment and Plan: currently on BiPAP at night and p.r.n. during daytime (4) Chronic kidney disease, stage III (moderate): Code(s): N18.3 - Chronic kidney disease, stage 3 (moderate) Status: Acute Assessment and Plan: Baseline creatinine mid 1s to [address] with no signs of obstruction. Renal ultrasound with no hydronephrosis Combination of diuresis with recent contrast use likely etiology for his renal failure Patient remains oliguric with increasing BUN/creatinine High risk for needing start of dialysis Appreciate renal input (5) GERD without esophagitis: Code(s): K21.9 - Gastro-esophageal reflux disease without esophagitis Status: Acute Assessment and Plan: PPI (6) ARACELY (generalized anxiety disorder): Code(s): F41.1 - Generalized anxiety disorder Status: Acute Assessment and Plan: Stable on home meds (7) Coronary artery disease involving [place] heart without angina pectoris: Code(s): I25.10 - Atherosclerotic heart disease of [place] coronary artery without angina pectoris Status: Acute Assessment and Plan: Stable, cont home meds (8) Chronic diastolic (congestive) heart failure: Code(s): I50.32 - Chronic diastolic (congestive) heart failure Status: Acute Assessment and Plan: Acute on chronic diastolic heart failure, consider cardiology consultation IV diuresis on hold secondary to renal failure (9) 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: Code(s): K22.70 - 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 Status: Acute Assessment and Plan: Stable, follow-up with GI outpatient (10) Type 2 diabetes mellitus with hyperglycemia: Code(s): E11.65 - Type 2 diabetes mellitus with hyperglycemia Status: Chronic Assessment and Plan: Accu-Cheks with sliding scale insulin (11) RLS (restless legs syndrome): Code(s): G25.81 - Restless legs syndrome Status: Acute Assessment and Plan: Stable, continue home meds Plan DVT prophylaxis with heparin GI prophylaxis with PPI Code status full code Subjective Date/time seen: 02/15/22 09:10 Interval history: No overnight events noted. No chest pain. No nausea, vomiting or diarrhea. No fevers or chills. Patient denies shortness of breath. Review of Systems Review of Systems: 12 point review of systems was assessed and was negative except as noted in the HPI Exam Narrative: General: No acute distress, alert and oriented per baseline HEENT: Atraumatic, normocephalic, mucous membranes moist CV: Regular rate and rhythm, S1, S2 Lungs: Expiratory wheezes noted, otherwise good air entry noted throughout Abdomen: Soft, nontender, nondistended Extremities: Normal to inspection Skin: No rashes noted, no lesions or wounds seen Psych: Euthymic, normal affect Objective Data Vital Signs Vital Signs: Vital Signs - 24 hr 02/14/22 12:28 02/14/22 14:43 02/14/22 14:51 Temperature 97.3 F L Pulse Rate 75 76 78 Respiratory Rate 22 H 20 20 Blood Pressure 119/65 Pulse Oximetry 96 Oxygen Delivery Fraction of Inspired Oxygen 02/14/22 16:55 02/14/22 12:00 02/14/22 16:00 Temperature 96
[2022-02-15] MEDS: GABAPENTIN 300 MG CAPSULE 600 MG PO ×2 (09:20→17:01)
[2022-02-15] MEDS: HEPARIN SODIUM 5,000 UNITS/ML VIAL 5000 UNITS SUB-Q ×2 (09:20→21:28)
[2022-02-15] MEDS: CYANOCOBALAMIN 1,000 MCG TABLET 2000 MCG PO (09:21)
[2022-02-15] MEDS: CLOPIDOGREL BISULFATE 75 MG TABLET PO (09:21)
[2022-02-15] MEDS: FERROUS SULFATE 324 MG TABLET PO ×2 (09:21→17:01)
[2022-02-15] MEDS: PANTOPRAZOLE 40 MG TABLET PO (09:21)
[2022-02-15] MEDS: VERAPAMIL HCL 180 MG TABLET ER 360 MG PO (09:21)
[2022-02-15] MEDS: predniSONE 20 MG TABLET 40 MG PO (09:21)
[2022-02-15] MEDS: FLUTICASONE PROPIONATE 0.05% NA SPR 16 GM BTL (*BKC) 2 SPRAY NASAL (09:21)
[2022-02-15] MEDS: ASPIRIN 81 MG CHEWABLE TABLET PO (09:21)
[2022-02-15] MEDS: MONTELUKAST SODIUM 10 MG TABLET PO (09:21)
[2022-02-15] MEDS: ALPRAZolam (*CRX) 0.5 MG TABLET PO ×2 (09:28→21:28)
[2022-02-15 11:53] LABS: Glucose Point of Care 189 mg/dl (65-105)
--- NOTE | 2022-02-15 12:18 | PM.CNPUL ---
Assessment and Plan Assessment and plan (1) Asthma-COPD overlap syndrome: Code(s): J44.9 - Chronic obstructive pulmonary disease, unspecified Status: Acute Assessment and Plan: Patient carries a history of asthma diagnosed at age 16 as well as a 37 pack year history of tobacco use. Her CT angiogram of the chest on 02/11/2022 does not show any evidence of bullous emphysema. I have no PFTs. In addition she is morbidly obese and she may have undiagnosed obstructive sleep apnea. patient was noted to have intermittent wheezing throughout the hospitalization and is currently being treated for an asthma COPD exacerbation with steroids started on 02/11/2022 and now prednisone 40 mg p.o. q.day since 02/13. she has no wheezing and states she is 80% back to her normal. Today is day 5 of steroids and I will discontinue. She is on albuterol 5 mg nebulized q.6 hours, ipratropium 0.5 mg nebulized Q 6 hours and Advair 45-21 at 2 puffs q.12 hours. As an outpatient she was uncontrolled on Step 2 therapy with daily rescue albuterol use. I will continue albuterol 2.5 mg nebulized q.6 hours, ipratropium 0.5 mg nebulized Q 6 hours and nebulized budesonide 0.5 mg b.i.d.. If she is stable tomorrow off of the steroids I will discontinue her nebulizers and change her to inhaled trelegy 200/62.5/25 at 1 puff Q day. Regarding her BiPAP use the patient feels that she can breathe without BiPAP tonight and I will discontinue the BiPAP. I will place the patient on 2 L nasal cannula and perform an overnight oximetry. Of note she has no evidence of hypercarbic respiratory failure with her admission blood gas 7.28/41/40. Will follow with you. History of Present Illness History of Present Illness Consult date: 02/15/22 Chief complaint: copd, chf Narrative: 02/15/2022: This is a new pulmonary consultation for asthma, COPD and BiPAP use. 71-year-old woman with a history of asthma since age 16 on inhalers all her life, 37 pack year history of tobacco use, quit 1991, morbid obesity, chronic renal insufficiency, diastolic heart disease, coronary artery disease, hypertension, restless legs syndrome presented to the emergency room on 02/10/2022 with shortness of breath. The patient is morbidly obese and tells me that she had a home sleep study approximately 5 years ago and was told she had a light case of obstructive sleep apnea and was prescribed a CPAP mask. She did not use this and the machine was recalled 4 noncompliance. To her knowledge she does not snore, does not wake herself with grunting, no morning headaches and no witnessed apneas. Regarding patient's asthma she was diagnosed at age 16 and has been on weeks sella 100-50 at 1 puff q.12 hours and rescue albuterol and montelukast 10 mg a day. At baseline she can walk around the house limited mainly by her legs but also by her breathing. One year ago she could walk around the house and this has not changed or progressed in the last year. The patient states that even when she was feeling well she was using her albuterol rescue inhaler daily. The patient smoked tobacco from age [age] at 1 and half packs per day for total of 37 pack years. Both of her parents smoked. She is not exposed to any secondhand smoke at this time. 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 her D-dimer was 1.[address] angiogram of the chest on 02/11 demonstrated no PE, edema with small bilateral pleural effusions. Shortness of breath worsened and patient was placed on BiPAP. ABG on BiPAP 12/550% demonstrated pH of 7.39/38/159. Patient was treated for COPD exacerbation and fluid overload with IV
[2022-02-15 12:33] LABS: Anion Gap 15 mmol/L (8-16); Calcium 7.2 mg/dL (8.4-10.2); Carbon Dioxide 18 mmol/L (22-30); Chloride 90 mmol/L (98-107); Estimated CRCL calculation 11 ml/min; Estimated Glomerular Filt Rate 8; Glucose 157 mg/dL (65-110); Potassium 5.2 mmol/L (3.4-5.0); Sodium 123 mmol/L (137-145)
[2022-02-15 12:40] LABS: Blood Urea Nitrogen 120 mg/dL (7-17)
[2022-02-15] MEDS: SODIUM BICARBONATE 8.4% 75 MEQ in SODIUM CHLORIDE 0.45% 1,000 ML IV CONT (13:15)
[2022-02-15] MEDS: INSULIN ASPART (*BKC) 100 UNITS/ML 15 UNITS SUB-Q ×2 (13:28→17:08)
[2022-02-15] MEDS: ALBUTEROL SULFATE NEB 2.5 MG/3 ML INH INHALATION ×2 (15:42→21:28)
--- NOTE | 2022-02-15 15:52 | PM.PNNEP ---
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 (2) Stage 3b chronic kidney disease: Code(s): N18.32 - Chronic kidney disease, stage 3b Status: Acute Assessment and Plan: baseline creatinine runs ~ 1.5 - 1.6mg/dl (at best) but has been as high as 2.1mg/dl likely due to CAD/CHF, vascular disease, diabetes, and age-related change (3) Acute hypoxemic respiratory failure: Code(s): J96.01 - Acute respiratory failure with hypoxia Status: Chronic Assessment and Plan: multiple issues: acute on chronic CHF/pulmonary edema COPD RAINA uncontrolled HTN doing better at this time holding diuresis and ARB in the setting of #1 on nebulizer treatments, supplemental oxygen, and steroids BiPAP as needed (4) Acute on chronic diastolic heart failure: Code(s): I50.33 - Acute on chronic diastolic (congestive) heart failure Status: Acute Assessment and Plan: treated with IV diuretics follow repeat CXRs (clinically seems better) follow daily weights and I/Os Echo results noted (5) Hypertension: Code(s): I10 - Essential (primary) hypertension Status: Chronic Assessment and Plan: reasonable control at this time would avoid overcontrol given #1 follow trend of hemodynamics (6) Anemia: Code(s): D64.9 - Anemia, unspecified Status: Acute Assessment and Plan: likely due to MARINA, CKD, and acute illness follow H/H (7) Type 2 diabetes mellitus with hyperglycemia: Code(s): E11.65 - Type 2 diabetes mellitus with hyperglycemia Status: Chronic Assessment and Plan: follow accuchecks glycemic control Will continue to follow. Subjective Date/time seen: 02/15/22 15:52 Seems to be doing relatively well despite her deteriorating kidney function as noted by labs; however, seems to be making more urine today; respiratory status seems relatively stable; no other acute issues/events overnight or earlier this AM. Exam Narrative: General: WD/WN female in NAD Heart: normal S1 and S2; no rub Lungs: coarse breath sounds Abdomen: soft, nontender, nondistended, positive bowel sounds Extremities: no cyanosis or clubbing; 1+ edema Skin: warm and intact Objective Data Vital Signs Vital Signs: Vital Signs Temp Pulse Resp BP Pulse Ox O2 Del Method FiO2 02/15/22 15:44 75 20 02/15/22 13:47 79 02/15/22 12:00 99 Room Air 02/15/22 12:00 72 02/15/22 12:15 35.6 C L 73 12 149/79 H 100 02/15/22 10:00 74 02/15/22 08:00 74 02/15/22 11:39 73 20 160/78 H 99 02/15/22 11:10 78 20 02/15/22 08:30 75 97 Room Air 02/15/22 08:32 75 18 02/15/22 08:00 99 Room Air 02/15/22 08:11 36.1 C L 71 22 H 189/83 H 100 02/15/22 04:00 36.7 C 73 20 146/61 H 97 02/15/22 03:59 74 20 99 BiPAP 35 02/15/22 03:59 74 02/15/22 02:00 72 02/15/22 02:07 72 23 H 99 BiPAP 02/15/22 02:06 73 20 02/15/22 00:00 70 24 H 98 BiPAP 35 02/15/22 00:00 70 02/14/22 23:33 60 24 H 98 BiPAP 02/14/22 23:07 36.7 C 74 20 143/68 H 96 02/14/22 21:43 80 02/14/22 20:00 80 20 96 Room Air 35 02/14/22 20:00 80 02/14/22 20:47 79 20 02/14/22 20:29 96 Room Air
--- NOTE | 2022-02-15 15:52 | P.PNNP_ITS ---
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 (2) Stage 3b chronic kidney disease: Code(s): N18.32 - Chronic kidney disease, stage 3b Status: Acute Assessment and Plan: * baseline creatinine runs ~ 1.5 - 1.6mg/dl (at best) but has been as high as 2.1mg/dl * likely due to CAD/CHF, vascular disease, diabetes, and age-related change (3) Acute hypoxemic respiratory failure: Code(s): J96.01 - Acute respiratory failure with hypoxia Status: Chronic Assessment and Plan: * multiple issues: * acute on chronic CHF/pulmonary edema * COPD * RAINA * uncontrolled HTN * doing better at this time * holding diuresis and ARB in the setting of #1 * on nebulizer treatments, supplemental oxygen, and steroids * BiPAP as needed (4) Acute on chronic diastolic heart failure: Code(s): I50.33 - Acute on chronic diastolic (congestive) heart failure Status: Acute Assessment and Plan: * treated with IV diuretics * follow repeat CXRs (clinically seems better) * follow daily weights and I/Os * Echo results noted (5) Hypertension: Code(s): I10 - Essential (primary) hypertension Status: Chronic Assessment and Plan: * reasonable control at this time * would avoid overcontrol given #1 * follow trend of hemodynamics (6) Anemia: Code(s): D64.9 - Anemia, unspecified Status: Acute Assessment and Plan: * likely due to MARINA, CKD, and acute illness * follow H/H (7) Type 2 diabetes mellitus with hyperglycemia: Code(s): E11.65 - Type 2 diabetes mellitus with hyperglycemia Status: Chronic Assessment and Plan: * follow accuchecks * glycemic control Will continue to follow. Subjective Date/time seen: 02/15/22 15:52 Seems to be doing relatively well despite her deteriorating kidney function as noted by labs; however, seems to be making more urine today; respiratory status seems relatively stable; no other acute issues/events overnight or earlier this AM. Exam Narrative: General: WD/WN female in NAD Heart: normal S1 and S2; no rub Lungs: coarse breath sounds Abdomen: soft, nontender, nondistended, positive bowel sounds Extremities: no cyanosis or clubbing; 1+ edema Skin: warm and intact Objective Data Vital Signs Vital Signs: Vital Signs Temp Pulse Resp BP Pulse Ox O2 Del Method FiO2 02/15/22 15:44 75 20 02/15/22 13:47 79 02/15/22 12:00 99 Room Air 02/15/22 12:00 72 02/15/22 12:15 35.6 C L 73 12 149/79 H 100 02/15/22 10:00 74 02/15/22 08:00 74 02/15/22 11:39 73 20 160/78 H 99 02/15/22 11:10 78 20 02/15
[2022-02-15 16:53] LABS: Glucose Point of Care 291 mg/dl (65-105)
[2022-02-15] MEDS: INSULIN ASPART (*BKC) 100 UNITS/ML SUB-Q (17:08)
[2022-02-15 19:27] LABS: Albumin Level 4.2 g/dL (3.5-5.1); Anion Gap 17 mmol/L (8-16); Blood Urea Nitrogen 119 mg/dL (7-17); Calcium 7.4 mg/dL (8.4-10.2); Carbon Dioxide 18 mmol/L (22-30); Chloride 87 mmol/L (98-107); Estimated CRCL calculation 11 ml/min; Estimated Glomerular Filt Rate 8; Glucose 229 mg/dL (65-110); Phosphorus 6.3 mg/dL (2.5-4.5); Potassium 5.6 mmol/L (3.4-5.0); Sodium 122 mmol/L (137-145)
[2022-02-15 20:17] LABS: Glucose Point of Care 287 mg/dl (65-105)
[2022-02-15] MEDS: GABAPENTIN 400 MG CAPSULE 800 MG PO (21:27)
[2022-02-15] MEDS: BUDESONIDE RESPULE NEB 0.5 MG/2 ML AMP INHALATION (21:28)
[2022-02-15] MEDS: INSULIN GLARGINE (*BKC) 100 UNITS/ML 70 UNITS SUB-Q (21:29)
[2022-02-16] VITALS (20 sets, daily range): BP systolic 129–157; BP diastolic 56–83; PULSE 62–95; RESP 18–24; TEMP 36–36.7; O2SAT 95–100
--- NOTE | 2022-02-16 04:44 | PCRCNOTE ---
Patient did not receive her 0200 breathing treatment due to being on an apnea link. Treatment will resume at 0800.
[2022-02-16] MEDS: LEVOTHYROXINE SODIUM 100 MCG TABLET 200 MCG PO (06:22)
[2022-02-16] MEDS: SODIUM BICARBONATE 8.4% 75 MEQ in SODIUM CHLORIDE 0.45% 1,000 ML IV CONT ×2 (06:22→21:06)
[2022-02-16 07:27] LABS: Albumin Level 3.9 g/dL (3.5-5.1); Anion Gap 15 mmol/L (8-16); Calcium 7.1 mg/dL (8.4-10.2); Carbon Dioxide 19 mmol/L (22-30); Chloride 90 mmol/L (98-107); Estimated CRCL calculation 12 ml/min; Estimated Glomerular Filt Rate 8; Glucose 264 mg/dL (65-110); Phosphorus 6.7 mg/dL (2.5-4.5); Potassium 5.2 mmol/L (3.4-5.0); Sodium 124 mmol/L (137-145)
[2022-02-16 08:40] LABS: Blood Urea Nitrogen 129 mg/dL (7-17)
[2022-02-16] MEDS: FLUTICASONE PROPIONATE 0.05% NA SPR 16 GM BTL (*BKC) 2 SPRAY NASAL (08:43)
[2022-02-16] MEDS: ASPIRIN 81 MG CHEWABLE TABLET PO (08:44)
[2022-02-16] MEDS: CLOPIDOGREL BISULFATE 75 MG TABLET PO (08:44)
[2022-02-16] MEDS: VERAPAMIL HCL 180 MG TABLET ER 360 MG PO (08:44)
[2022-02-16] MEDS: HEPARIN SODIUM 5,000 UNITS/ML VIAL 5000 UNITS SUB-Q ×2 (08:44→21:07)
[2022-02-16] MEDS: FERROUS SULFATE 324 MG TABLET PO ×2 (08:44→17:10)
[2022-02-16] MEDS: GABAPENTIN 300 MG CAPSULE 600 MG PO ×2 (08:44→17:10)
[2022-02-16] MEDS: PANTOPRAZOLE 40 MG TABLET PO (08:44)
[2022-02-16] MEDS: CYANOCOBALAMIN 1,000 MCG TABLET 2000 MCG PO (08:44)
[2022-02-16] MEDS: MONTELUKAST SODIUM 10 MG TABLET PO (08:44)
[2022-02-16] MEDS: IPRATROPIUM BR 0.02% INH SOLN 0.5 MG/2.5 ML VIAL INHALATION (08:59)
[2022-02-16] MEDS: ALBUTEROL SULFATE NEB 2.5 MG/3 ML INH INHALATION ×2 (08:59→20:10)
[2022-02-16] MEDS: BUDESONIDE RESPULE NEB 0.5 MG/2 ML AMP INHALATION ×2 (08:59→20:10)
[2022-02-16 09:03] LABS: Free T4 Free Thyroxine 1.14 ng/mL (0.78-2.19)
--- NOTE | 2022-02-16 09:16 | PM.IMPN ---
Progress Note: A&P Assessment and Plan (1) Respiratory failure, acute: Code(s): J96.00 - Acute respiratory failure, unspecified whether with hypoxia or hypercapnia Status: Acute Assessment and Plan: Patient previously on BiPAP, then weaned to 2 L nasal cannula, requesting to have an ApneaLink run on room air and she is now weaned to room air during the day Appreciate pulmonology consultation (2) COPD (chronic obstructive pulmonary disease): Code(s): J44.9 - Chronic obstructive pulmonary disease, unspecified Status: Acute Assessment and Plan: Completed 5 day course of steroids Will transition nebulizers to Trelegy per pulmonology recommendation, continue singular (3) RAINA (obstructive sleep apnea): Code(s): G47.33 - Obstructive sleep apnea (adult) (pediatric) Status: Acute Assessment and Plan: ApneaLink being run on room air tonight (4) Chronic kidney disease, stage III (moderate): Code(s): N18.3 - Chronic kidney disease, stage 3 (moderate) Status: Acute Assessment and Plan: Will discontinue Street today and assess voiding Creatinine stable 5.3 with a BUN of 129, concern for need for dialysis soon Appreciate nephrology consultation, recommendations for today still pending (5) GERD without esophagitis: Code(s): K21.9 - Gastro-esophageal reflux disease without esophagitis Status: Acute Assessment and Plan: PPI (6) ARACELY (generalized anxiety disorder): Code(s): F41.1 - Generalized anxiety disorder Status: Acute Assessment and Plan: Stable on home meds (7) Coronary artery disease involving [place] heart without angina pectoris: Code(s): I25.10 - Atherosclerotic heart disease of [place] coronary artery without angina pectoris Status: Acute Assessment and Plan: Stable, cont home meds (8) Chronic diastolic (congestive) heart failure: Code(s): I50.32 - Chronic diastolic (congestive) heart failure Status: Acute Assessment and Plan: Holding diuretics, does not appear to be in acute heart failure at this time (9) 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: Code(s): K22.70 - 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 Status: Acute Assessment and Plan: Stable, follow-up with GI outpatient (10) Type 2 diabetes mellitus with hyperglycemia: Code(s): E11.65 - Type 2 diabetes mellitus with hyperglycemia Status: Chronic Assessment and Plan: Accu-Cheks with sliding scale insulin (11) RLS (restless legs syndrome): Code(s): G25.81 - Restless legs syndrome Status: Acute Assessment and Plan: Stable, continue home meds Plan DVT prophylaxis with heparin GI prophylaxis with PPI Code status full code Subjective Date/time seen: 02/16/22 09:16 Interval history: No overnight events noted. No chest pain or shortness of breath. No nausea, vomiting or diarrhea. No fevers or chills. Patient states she feels much better today than yesterday, eager to go home. Review of Systems Review of Systems: 12 point review of systems was assessed and was negative except as noted in the HPI Exam Narrative: General: No acute distress, alert and oriented per baseline HEENT: Atraumatic, normocephalic, mucous membranes moist CV: Regular rate and rhythm, S1, S2 Lungs: Clear to auscultation bilaterally, no wheeze, rhonchi or rales Abdomen: Soft, nontender, nondistended Extremities: Normal to inspection Skin: No rashes noted, no lesions or wounds seen Psych: Euthymic, normal affect Objective Data Vital Signs Vital Signs: Vital Signs - 24 hr 02/15/22 11:10 02/15/22 11:39 02/15/22 10:00 Temperature Pulse Rate 78 73 74 Respiratory Rate 20 20 Blood Pressure 160/78 H Pulse Oximetry 99 Oxygen Delivery Oxygen Flow Rate Fraction of Inspired Oxygen 02/15/22 12:15 02/15/22 12:00 02/15/22 12:00 Temperature 96.1 F L Pul
[2022-02-16 09:25] LABS: Glucose Point of Care 240 mg/dl (65-105)
[2022-02-16] MEDS: INSULIN ASPART (*BKC) 100 UNITS/ML 15 UNITS SUB-Q (09:30)
[2022-02-16] MEDS: INSULIN ASPART (*BKC) 100 UNITS/ML SUB-Q (09:30)
--- NOTE | 2022-02-16 11:52 | PM.PNPUL ---
Progress Note: A&P Assessment and Plan (1) Asthma-COPD overlap syndrome: Code(s): J44.9 - Chronic obstructive pulmonary disease, unspecified Status: Acute Assessment and Plan: Patient carries a history of asthma diagnosed at age 16 as well as a 37 pack year history of tobacco use. Her CT angiogram of the chest on 02/11/2022 does not show any evidence of bullous emphysema. I have no PFTs. In addition she is morbidly obese and she may have undiagnosed obstructive sleep apnea. patient was noted to have intermittent wheezing throughout the hospitalization and is currently being treated for an asthma COPD exacerbation with steroids started on 02/11/2022 and now prednisone 40 mg p.o. q.day since 02/13. she has no wheezing and states she is 80% back to her normal. Today is day 5 of steroids and I will discontinue. She is on albuterol 5 mg nebulized q.6 hours, ipratropium 0.5 mg nebulized Q 6 hours and Advair 45-21 at 2 puffs q.12 hours. As an outpatient she was uncontrolled on Step 2 therapy with daily rescue albuterol use. I will continue albuterol 2.5 mg nebulized q.6 hours, ipratropium 0.5 mg nebulized Q 6 hours and nebulized budesonide 0.5 mg b.i.d.. If she is stable tomorrow off of the steroids I will discontinue her nebulizers and change her to inhaled trelegy 200/62.5/25 at 1 puff Q day. Regarding her BiPAP use the patient feels that she can breathe without BiPAP tonight and I will discontinue the BiPAP. I will place the patient on 2 L nasal cannula and perform an overnight oximetry. Of note she has no evidence of hypercarbic respiratory failure with her admission blood gas 7.28/41/40. 02/16 The patient were 2 L nasal cannula last night and sled that she slept well. She has dyspnea on exertion but no shortness of breath at rest. She states her breathing is no different than yesterday. Her white blood cell count is 13.8. Creatinine is 5.3. She is on room air with saturations 98%. Patient had an overnight oximetry on 2 L nasal cannula with the average saturation of 99%. Lowest saturation was 95%. Time with saturation less than or equal to 88% was 0 minutes. She has no wheezing on exam. From a respiratory viewpoint the patient is stable off of BiPAP. Will repeat an overnight oximetry on room air. I will discontinue her nebulizers and place her on trelegy 200/62.5/25 at 1 puff q.day. Continue montelukast. Will follow with you. Subjective Date/time seen: 02/16/22 11:52 Interval history: 02/15/2022:? This is a new pulmonary consultation for asthma, COPD and BiPAP use. ? 71-year-old woman with a history of asthma since age 16? on inhalers all her life, 37 pack year history of tobacco use, quit 1991,? morbid obesity, chronic renal insufficiency,? diastolic heart disease, coronary artery disease, hypertension, restless legs syndrome presented to the emergency room on 02/10/2022 with shortness of breath. ? The patient is morbidly obese and tells me that she had a home sleep study approximately 5 years ago and was told she had a light case of obstructive sleep apnea and was prescribed a CPAP mask.? She did not use this and the machine was recalled 4 noncompliance. ? To her knowledge she does not snore, does not wake herself with grunting, no morning headaches and no witnessed apneas. ? Regarding patient's asthma she was diagnosed at age 16 and has been on weeks sella 100-50 at 1 puff q.12 hours and rescue albuterol and montelukast 10 mg a day.? At baseline she can walk around the house limited mainly by her legs? but also by her breathing.? One year ago she could walk around the house and this has not changed or progressed in the last year. ? The patient states that even when she was feeling well she was using her albuterol rescue inhaler daily. ? The patient smoked tobacco from age [age] at 1 and half packs per day for total of 37 pack years.? Both of her parents smoked.? She is not exposed to any
--- NOTE | 2022-02-16 12:28 | P.PNNP_ITS ---
Progress Note: A&P Assessment and Plan (1) MARINA (acute kidney injury): Code(s): N17.9 - Acute kidney failure, unspecified Status: Acute Assessment and Plan: * multifactorial etiology: * contrast exposure (CT scan PE protocol) * prerenal factors (as noted by urine electrolytes) * necessity of IV diuretics * fluctuating hemodynamics/blood pressure * rising creatinine with decline in urine output continues * hyponatremia and metabolic acidosis are secondary renal dysfunction as well * on bicarb IVFs fluids * renal ultrasound normal * follow trend of repeat labs and UOP * I am a bit worried by her change in mental status today -- with her rising BUN, this may be early sign of uremia * she still remains at high risk for VALVE LINER RUBBER/dialysis (2) Stage 3b chronic kidney disease: Code(s): N18.32 - Chronic kidney disease, stage 3b Status: Acute Assessment and Plan: * baseline creatinine runs ~ 1.5 - 1.6mg/dl (at best) but has been as high as 2.1mg/dl * likely due to CAD/CHF, vascular disease, diabetes, and age-related change (3) Acute hypoxemic respiratory failure: Code(s): J96.01 - Acute respiratory failure with hypoxia Status: Chronic Assessment and Plan: * multiple issues: * acute on chronic CHF/pulmonary edema * COPD * RAINA * uncontrolled HTN * doing better at this time * holding diuresis and ARB in the setting of #1 * on nebulizer treatments, supplemental oxygen, and steroids * BiPAP as needed (4) Acute on chronic diastolic heart failure: Code(s): I50.33 - Acute on chronic diastolic (congestive) heart failure Status: Acute Assessment and Plan: * treated with IV diuretics * follow repeat CXRs (clinically seems better) * follow daily weights and I/Os * Echo results noted (5) Hypertension: Code(s): I10 - Essential (primary) hypertension Status: Chronic Assessment and Plan: * reasonable control at this time * would avoid overcontrol given #1 * follow trend of hemodynamics (6) Anemia: Code(s): D64.9 - Anemia, unspecified Status: Acute Assessment and Plan: * likely due to MARINA, CKD, and acute illness * follow H/H (7) Type 2 diabetes mellitus with hyperglycemia: Code(s): E11.65 - Type 2 diabetes mellitus with hyperglycemia Status: Chronic Assessment and Plan: * follow accuchecks * glycemic control Long and extensive discussion (> 20 minutes) with daughter (by phone) regarding the patient's kidney function and my concern regarding possible uremia; it is favorable that her urine output has improved in the last 24 hours but if her BUN continues to rise or her mentation progressively worsens, the next step may VALVE LINER RUBBER/dialysis as this would remove/clear the uremic poisons that may be affecting her mental status. Will continue to follow. Subjective Date/time seen: 02/16/22 12:28 Laying in bed in no apparent distress; however, she does not seem as interactive as yesterday -- seem a bit lethargic and frequently falling asleep during my conversation with her; patient's was at bedside with her at the time of my visit and noted these issues as well. Exam 2 Narrative: General: WD/WN female in NAD but sleepy/lethargic Heart: normal S1 and S2; no rub Lungs: coarse breath sounds Abdomen: soft, nontender, nondistended, positive bowel sounds Extremities: no cyanosis or clubbing; 1+ edema Skin: warm and intact Obje
--- NOTE | 2022-02-16 12:28 | PM.PNNEP ---
Progress Note: A&P Assessment and Plan (1) MARINA (acute kidney injury): Code(s): N17.9 - Acute kidney failure, unspecified Status: Acute Assessment and Plan: multifactorial etiology: contrast exposure (CT scan PE protocol) prerenal factors (as noted by urine electrolytes) necessity of IV diuretics fluctuating hemodynamics/blood pressure rising creatinine with decline in urine output continues hyponatremia and metabolic acidosis are secondary renal dysfunction as well on bicarb IVFs fluids renal ultrasound normal follow trend of repeat labs and UOP I am a bit worried by her change in mental status today -- with her rising BUN, this may be early sign of uremia she still remains at high risk for HEALTH COUNSELOR/dialysis (2) Stage 3b chronic kidney disease: Code(s): N18.32 - Chronic kidney disease, stage 3b Status: Acute Assessment and Plan: baseline creatinine runs ~ 1.5 - 1.6mg/dl (at best) but has been as high as 2.1mg/dl likely due to CAD/CHF, vascular disease, diabetes, and age-related change (3) Acute hypoxemic respiratory failure: Code(s): J96.01 - Acute respiratory failure with hypoxia Status: Chronic Assessment and Plan: multiple issues: acute on chronic CHF/pulmonary edema COPD RAINA uncontrolled HTN doing better at this time holding diuresis and ARB in the setting of #1 on nebulizer treatments, supplemental oxygen, and steroids BiPAP as needed (4) Acute on chronic diastolic heart failure: Code(s): I50.33 - Acute on chronic diastolic (congestive) heart failure Status: Acute Assessment and Plan: treated with IV diuretics follow repeat CXRs (clinically seems better) follow daily weights and I/Os Echo results noted (5) Hypertension: Code(s): I10 - Essential (primary) hypertension Status: Chronic Assessment and Plan: reasonable control at this time would avoid overcontrol given #1 follow trend of hemodynamics (6) Anemia: Code(s): D64.9 - Anemia, unspecified Status: Acute Assessment and Plan: likely due to MARINA, CKD, and acute illness follow H/H (7) Type 2 diabetes mellitus with hyperglycemia: Code(s): E11.65 - Type 2 diabetes mellitus with hyperglycemia Status: Chronic Assessment and Plan: follow accuchecks glycemic control Long and extensive discussion (> 20 minutes) with daughter (by phone) regarding the patient's kidney function and my concern regarding possible uremia; it is favorable that her urine output has improved in the last 24 hours but if her BUN continues to rise or her mentation progressively worsens, the next step may HEALTH COUNSELOR/dialysis as this would remove/clear the uremic poisons that may be affecting her mental status. Will continue to follow. Subjective Date/time seen: 02/16/22 12:28 Laying in bed in no apparent distress; however, she does not seem as interactive as yesterday -- seem a bit lethargic and frequently falling asleep during my conversation with her; patient's was at bedside with her at the time of my visit and noted these issues as well. Exam Narrative: General: WD/WN female in NAD but sleepy/lethargic Heart: normal S1 and S2; no rub Lungs: coarse breath sounds Abdomen: soft, nontender, nondistended, positive bowel sounds Extremities: no cyanosis or clubbing; 1+ edema Skin: warm and intact Objective Data Vital Signs Vital Signs: Vital Signs Temp Pulse Resp BP Pulse Ox O2 Del Method O2 Flow Rate 02/16/22 12:00 36.0 C L 77 24 H 129/83 99 02/16/22 12:00 88 02/16/22 11:44 Room Air 02/16/22 10:00 76 02/16/22 08:00 Room Air 02/16/22 08:00 95 02/16/22 09:19 78 18 02/16/22 09:00 78 18 02/16/22 09:00 78 98 Room Air 02/16/22 08:00 36.1 C L 76 24 H 154/74 H 99 02/16/22 06:00 70 02/16/22 04:00
[2022-02-16 12:58] LABS: Glucose Point of Care 96 mg/dl (65-105)
[2022-02-16 16:42] LABS: Glucose Point of Care 61 mg/dl (65-105)
[2022-02-16 16:49] LABS: Albumin Level 4.1 g/dL (3.5-5.1); Anion Gap 15 mmol/L (8-16); Calcium 7.5 mg/dL (8.4-10.2); Carbon Dioxide 22 mmol/L (22-30); Chloride 90 mmol/L (98-107); Estimated CRCL calculation 12 ml/min; Estimated Glomerular Filt Rate 8; Glucose 51 mg/dL (65-110); Phosphorus 6.2 mg/dL (2.5-4.5); Potassium 4.7 mmol/L (3.4-5.0); Sodium 127 mmol/L (137-145)
[2022-02-16 16:51] LABS: Blood Urea Nitrogen 129 mg/dL (7-17)
--- NOTE | 2022-02-16 16:55 | PC.NURSE ---
pt bs 59; gave pt apple juice
[2022-02-16] MEDS: ACETAMINOPHEN 325 MG TABLET 650 MG PO (17:51)
[2022-02-16 18:08] LABS: Glucose Point of Care 199 mg/dl (65-105)
[2022-02-16 20:11] LABS: Glucose Point of Care 223 mg/dl (65-105)
[2022-02-16] MEDS: ALPRAZolam (*CRX) 0.5 MG TABLET PO (21:07)
[2022-02-16] MEDS: GABAPENTIN 400 MG CAPSULE 800 MG PO (21:07)
[2022-02-16] MEDS: INSULIN GLARGINE (*BKC) 100 UNITS/ML 70 UNITS SUB-Q (21:19)
[2022-02-17] VITALS (22 sets, daily range): BP systolic 149–199; BP diastolic 63–85; PULSE 60–94; RESP 14–20; TEMP 36–36.8; O2SAT 91–95
[2022-02-17] MEDS: traMADol HCL (*CRX) 50 MG TABLET PO ×2 (01:38→20:52)
[2022-02-17] MEDS: LEVOTHYROXINE SODIUM 100 MCG TABLET 200 MCG PO (05:42)
[2022-02-17] MEDS: ACETAMINOPHEN 325 MG TABLET 650 MG PO (05:43)
[2022-02-17] MEDS: ALPRAZolam (*CRX) 0.5 MG TABLET PO (05:43)
[2022-02-17 05:59] LABS: Albumin Level 3.9 g/dL (3.5-5.1); Anion Gap 18 mmol/L (8-16); Calcium 7.1 mg/dL (8.4-10.2); Carbon Dioxide 22 mmol/L (22-30); Chloride 91 mmol/L (98-107); Estimated CRCL calculation 14 ml/min; Estimated Glomerular Filt Rate 10; Glucose 104 mg/dL (65-110); Potassium 4.4 mmol/L (3.4-5.0); Sodium 131 mmol/L (137-145)
[2022-02-17 06:28] LABS: Blood Urea Nitrogen 138 mg/dL (7-17)
[2022-02-17 08:30] LABS: Glucose Point of Care 82 mg/dl (65-105)
[2022-02-17] MEDS: FLUTICASONE PROPIONATE 0.05% NA SPR 16 GM BTL (*BKC) 2 SPRAY NASAL (08:30)
[2022-02-17] MEDS: CLOPIDOGREL BISULFATE 75 MG TABLET PO (08:31)
[2022-02-17] MEDS: GABAPENTIN 300 MG CAPSULE 600 MG PO ×2 (08:31→17:50)
[2022-02-17] MEDS: VERAPAMIL HCL 180 MG TABLET ER 360 MG PO (08:31)
[2022-02-17] MEDS: CYANOCOBALAMIN 1,000 MCG TABLET 2000 MCG PO (08:31)
[2022-02-17] MEDS: TOLNAFTATE 1% POWDER 45 GM BTL 1 APPLIC TOPICAL ×2 (08:31→20:49)
[2022-02-17] MEDS: MONTELUKAST SODIUM 10 MG TABLET PO (08:31)
[2022-02-17] MEDS: ASPIRIN 81 MG CHEWABLE TABLET PO (08:31)
[2022-02-17] MEDS: PANTOPRAZOLE 40 MG TABLET PO (08:31)
[2022-02-17] MEDS: FERROUS SULFATE 324 MG TABLET PO ×2 (08:31→17:50)
[2022-02-17] MEDS: HEPARIN SODIUM 5,000 UNITS/ML VIAL 5000 UNITS SUB-Q ×2 (08:31→20:48)
[2022-02-17] MEDS: FLUTICASONE/UMECLIDIN/VILANTER 200-62.5-25 MCG ELLIPTA 1 PUFF INHALATION (08:35)
--- NOTE | 2022-02-17 09:21 | PM.IMPN ---
Progress Note: A&P Assessment and Plan (1) Respiratory failure, acute: Code(s): J96.00 - Acute respiratory failure, unspecified whether with hypoxia or hypercapnia Status: Acute Assessment and Plan: Stable on room air Appreciate pulmonology consultation (2) COPD (chronic obstructive pulmonary disease): Code(s): J44.9 - Chronic obstructive pulmonary disease, unspecified Status: Acute Assessment and Plan: Completed 5 day course of steroids Will transition nebulizers to Trelegy per pulmonology recommendation, continue singular (3) RAINA (obstructive sleep apnea): Code(s): G47.33 - Obstructive sleep apnea (adult) (pediatric) Status: Acute Assessment and Plan: ApneaLink being run on room air Home O2 eval prior to discharge (4) Chronic kidney disease, stage III (moderate): Code(s): N18.3 - Chronic kidney disease, stage 3 (moderate) Status: Acute Assessment and Plan: Street discontinued, no issues voiding Creatinine stable 5.3 with a BUN of 129, concern for need for dialysis soon Appreciate nephrology consultation, recommendations for today still pending, however nursing staff report that patient went for dialysis today (5) GERD without esophagitis: Code(s): K21.9 - Gastro-esophageal reflux disease without esophagitis Status: Acute Assessment and Plan: PPI (6) ARACELY (generalized anxiety disorder): Code(s): F41.1 - Generalized anxiety disorder Status: Acute Assessment and Plan: Stable on home meds (7) Coronary artery disease involving [place] heart without angina pectoris: Code(s): I25.10 - Atherosclerotic heart disease of [place] coronary artery without angina pectoris Status: Acute Assessment and Plan: Stable, cont home meds (8) Chronic diastolic (congestive) heart failure: Code(s): I50.32 - Chronic diastolic (congestive) heart failure Status: Acute Assessment and Plan: Holding diuretics, does not appear to be in acute heart failure at this time (9) 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: Code(s): K22.70 - 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 Status: Acute Assessment and Plan: Stable, follow-up with GI outpatient (10) Type 2 diabetes mellitus with hyperglycemia: Code(s): E11.65 - Type 2 diabetes mellitus with hyperglycemia Status: Chronic Assessment and Plan: Accu-Cheks with sliding scale insulin glucose trending down now the patient is off steroids, will decrease Lantus from 70 units to 55 units, NovoLog has already been held, sliding scale insulin has not been needed (11) RLS (restless legs syndrome): Code(s): G25.81 - Restless legs syndrome Status: Acute Assessment and Plan: Stable, continue home meds Plan DVT prophylaxis with heparin GI prophylaxis with PPI Code status full code Subjective Date/time seen: 02/17/22 09:21 Interval history: Patient in dialysis most of the day. Review of Systems Review of Systems: Unobtainable Exam Narrative: Patient in dialysis Objective Data Vital Signs Vital Signs: Vital Signs - 24 hr 02/16/22 10:00 02/16/22 11:44 02/16/22 12:00 Temperature Pulse Rate 76 88 Respiratory Rate Blood Pressure Pulse Oximetry Oxygen Delivery Room Air Fraction of Inspired Oxygen 02/16/22 12:00 02/16/22 14:00 02/16/22 16:00 Temperature 96.8 F L Pulse Rate 77 71 Respiratory Rate 24 H Blood Pressure 129/83 Pulse Oximetry 99 Oxygen Delivery Room Air Fraction of Inspired Oxygen 02/16/22 16:00 02/16/22 16:00 02/16/22 18:00 Temperature 97.5 F L Pulse Rate 72 74 69 Respiratory Rate 18 Blood Pressure 139/56 L Pulse Oximetry 100 Oxygen Delivery Fraction of Inspired Oxygen 02/16/22 19:56 02/16/22 20:05 02/16/22 20:11 Temperature 97.8 F Pulse Rate 67 72 72 Respiratory Rate 20 18 Blood Pressure 152/69 H Pul
[2022-02-17 09:47] LABS: Basophils Percent Auto 0.2 % (0.2-1.2); Eosinophils Absolute Auto 0.1 K/mm3 (0-0.3); Eosinophils Percent Auto 0.8 % (0-4.4); Hematocrit 25.8 % (37.0-47.0); Hemoglobin 8.3 g/dL (12.0-15.0); Immature Granulocyte Percent A 1.2 % (0-0.5); Lymphocytes Absolute Auto 1.48 K/mm3 (0.9-3.2); Lymphocytes Percent Auto 9.2 % (18.3-44.2); Mean Corpuscular HGB Conc 32.2 g/dl (32-36); Mean Corpuscular Volume 80.9 fl (80-100); Mean Platelet Volume 11.2 fl (7.4-10.4); Monocytes Absolute Auto 1.9 K/mm3 (0.1-0.6); Monocytes Percent Auto 11.6 % (2.6-8.5); Neutrophils Absolute Auto 12.4 K/mm3 (1.3-6.7); Platelet Count Result 327 k/mm3 (150-375); Red Blood Count 3.19 M/mm3 (4.2-5.4); Red Cell Distribution Width 16.5 % (11.5-14.5); White Blood Count 16.1 K/mm3 (4.5-10.0)
--- NOTE | 2022-02-17 10:22 | PCNWS ---
Weekly nutritional screen. Patient is tolerating current diabetic diet with adequate intake at 100% all meals. No weight loss reported. No nutritional needs at this time.
[2022-02-17 10:23] LABS: Hemoglobin A1C 9.3 % (<5.7)
--- NOTE | 2022-02-17 11:40 | PM.PNPUL ---
Progress Note: A&P Assessment and Plan (1) Asthma-COPD overlap syndrome: Code(s): J44.9 - Chronic obstructive pulmonary disease, unspecified Status: Acute Assessment and Plan: Patient carries a history of asthma diagnosed at age 16 as well as a 37 pack year history of tobacco use. Her CT angiogram of the chest on 02/11/2022 does not show any evidence of bullous emphysema. I have no PFTs. In addition she is morbidly obese and she may have undiagnosed obstructive sleep apnea. patient was noted to have intermittent wheezing throughout the hospitalization and is currently being treated for an asthma COPD exacerbation with steroids started on 02/11/2022 and now prednisone 40 mg p.o. q.day since 02/13. she has no wheezing and states she is 80% back to her normal. Today is day 5 of steroids and I will discontinue. She is on albuterol 5 mg nebulized q.6 hours, ipratropium 0.5 mg nebulized Q 6 hours and Advair 45-21 at 2 puffs q.12 hours. As an outpatient she was uncontrolled on Step 2 therapy with daily rescue albuterol use. I will continue albuterol 2.5 mg nebulized q.6 hours, ipratropium 0.5 mg nebulized Q 6 hours and nebulized budesonide 0.5 mg b.i.d.. If she is stable tomorrow off of the steroids I will discontinue her nebulizers and change her to inhaled trelegy 200/62.5/25 at 1 puff Q day. Regarding her BiPAP use the patient feels that she can breathe without BiPAP tonight and I will discontinue the BiPAP. I will place the patient on 2 L nasal cannula and perform an overnight oximetry. Of note she has no evidence of hypercarbic respiratory failure with her admission blood gas 7.28/41/40. 02/16 The patient were 2 L nasal cannula last night and sled that she slept well. She has dyspnea on exertion but no shortness of breath at rest. She states her breathing is no different than yesterday. Her white blood cell count is 13.8. Creatinine is 5.3. She is on room air with saturations 98%. Patient had an overnight oximetry on 2 L nasal cannula with the average saturation of 99%. Lowest saturation was 95%. Time with saturation less than or equal to 88% was 0 minutes. She has no wheezing on exam. From a respiratory viewpoint the patient is stable off of BiPAP. Will repeat an overnight oximetry on room air. I will discontinue her nebulizers and place her on trelegy 200/62.5/25 at 1 puff q.day. Continue montelukast. 02/17 patient was on room air overnight and slept well. States that her breathing at rest is without issues she does have some dyspnea on exertion. Currently she is on room air with saturations 95%. Creatinine is 4.4, BUN is 138 and per the bedside nurse the plan is to initiate hemodialysis today. Patient had an unsuccessful overnight oximetry is no data was recorded. She has no wheezing on exam. Patient has been stable from a pulmonary perspective. When patient is ready to be discharged she should be discharged on these Pulmonary medications: Trelegy 200/62.5/25 At 1 puff q.day rescue albuterol 2 puffs q.4 hours p.r.n. wheezing and shortness of breath oxygen at rest and with ambulation per formal home O2 assessment on the day of discharge overnight oximetry on room air the night prior to discharge. If she wishes she can follow up in the Pulmonary Clinic 3-4 weeks following discharge. Have her call the clinic at [phone] to initiate this follow-up. otherwise she can follow up with her primary physician. Discussed with Dr. Kathleen, will sign off, call with questions Subjective Date/time seen: 02/17/22 11:40 Interval history: 02/15/2022:? This is a new pulmonary consultation for asthma, COPD and BiPAP use. ? 71-year-old woman with a history of asthma since age 16? on inhalers all her life, 37 pack year history of tobacco use, quit 1991,? morbid obesity, chronic renal insufficiency,? diastolic heart disease, coronary artery disease, hypertension, restless le
--- NOTE | 2022-02-17 12:36 | W.PM.PROC2 ---
Procedure Note - Detailed Date of Procedure 02/17/22 Pre-op Diagnosis 1 acute renal failure 2. copd, chf Post-op Diagnosis Same Procedure Performed ultrasound-guided percutaneous placement of a temporary dialysis catheter right IJ Surgeon Francisco Rizo MD Anesthesia Local ( 1% xylocaine plain) Indications The patient has been assessed by Nephrology. She has worsening renal function and CHF. Therefore, is felt that she may benefit by having Angelica few sessions of dialysis until her kidneys recover. Findings Normal appearing vascular anatomy in the right neck. Description of Procedure After obtaining appropriate written consent for central line placement, time-out was performed and we placed the patient in the supine position with the head flat in the hospital bed. Following this the entire right neck and upper chest was prepped with chlorhexidine. I put on full protective gear including mask with a plastic face guard, gown, gloves, and hat. Then a large sterile drape was applied over the area with a hole at the site of the drape on the Rt. neck level. Following this the ultrasound probe was draped. I did place some gel within the sterile plastic covering for the probe. Imaging on the right side I was able to image both the carotid artery and the right jugular vein. Using an 18 gauge cook needle I cannulated with the right jugular vein under direct vision with the US, and a guidewire was passed without difficulty to 25 centimeters. ( On the initial stick which was a little more lateral the, guidewire would not easily advanced into the central venous system. Assist backed we may have cannulated a slightly dilated external jugular vein. We removed the needle applied pressure for 1 minute and then were successful on the neck stick) Monitoring was continuous throughout this as the patient was on a telemetry. The heart rate did not increase during the procedure. Following this, usual Seldinger technique was used to place the central line catheter which was a triple lumen mock her 12 [place] 20 cm long dialysis catheter with the pigtail. This was done by carefully placing more local anesthetic at the exit site of the wire and around it. An eleven blade knife was used to make a small slit next to the wire . The 2 dilators provided in the prepackaged kit were passed followed by the catheter up to 19 centimeters at the skin level. Following this I used the provided 3-0 nylon to suture the catheter to the skin of the neck on each side at the provided loop poles at the Y portion the catheter on the central line and this was sutured to the patient's Rt. neck. A sterile dressing was applied. There was apparently no antibiotic disc available on the central line cart brought from ICU. ( However later I talked to the dialysis nurse and she was to place 1 when she changed the dressing immediately after dialysis). Following this we carefully placed saline flush connectors on each of the 3 port sites and each was aspirated of good dark blood and flushed with saline. Chest x-ray was ordered the opaque sterile occlusive dressing from the kit was applied for dressing over the entire set up at the exit site. Patient tolerated procedure well. I reviewed the chest x-ray done by the techs at the bedside. This appeared to show that the catheter was in good position in the central venous system above the level of the right atrium. I told the nurse that she could begin using the catheter. Implants 20 cm Mahker percutaneous dialysis catheter with pigtail Estimated Blood Loss 20 Complications No immediate complications Disposition Floor (Procedure was done in the patient's room bedside) [facility] Billing Surgery - Charge Forward: Surgery Billing (Percutaneous central line placement for dialysis)
[2022-02-17 12:51] LABS: Glucose Point of Care 136 mg/dl (65-105)
--- NOTE | 2022-02-17 13:51 | P.PNNP_ITS ---
Progress Note: A&P Assessment and Plan (1) MARINA (acute kidney injury): Code(s): N17.9 - Acute kidney failure, unspecified Status: Acute Assessment and Plan: * multifactorial etiology: * contrast exposure (CT scan PE protocol) * prerenal factors (as noted by urine electrolytes) * necessity of IV diuretics * fluctuating hemodynamics/blood pressure * creatinine better and increase in urine output noted * hyponatremia and metabolic acidosis a bit better as well * renal ultrasound normal * unfortunately, her rising BUN, fluctuating mental status, and asterixis seem to indicate that she is uremic * s/p placement of temporary HD catheter today * HD today and likely again tomorrow to facility clearance of the uremic poisons * follow mentation with dialytic intervention (2) Stage 3b chronic kidney disease: Code(s): N18.32 - Chronic kidney disease, stage 3b Status: Acute Assessment and Plan: * baseline creatinine runs ~ 1.5 - 1.6mg/dl (at best) but has been as high as 2.1mg/dl * likely due to CAD/CHF, vascular disease, diabetes, and age-related change (3) Acute hypoxemic respiratory failure: Code(s): J96.01 - Acute respiratory failure with hypoxia Status: Chronic Assessment and Plan: * multiple issues: * acute on chronic CHF/pulmonary edema * COPD * RAINA * uncontrolled HTN * doing better at this time * holding diuresis and ARB in the setting of #1 * however, significant urine output noted (suspect post ATN diuresis) * on nebulizer treatments, supplemental oxygen, and steroids * BiPAP as needed (4) Acute on chronic diastolic heart failure: Code(s): I50.33 - Acute on chronic diastolic (congestive) heart failure Status: Acute Assessment and Plan: * treated with IV diuretics initially * follow repeat CXRs (clinically seems better) * follow daily weights and I/Os * Echo results noted (5) Hypertension: Code(s): I10 - Essential (primary) hypertension Status: Chronic Assessment and Plan: * reasonable control at this time * would avoid overcontrol given #1 * follow trend of hemodynamics (6) Anemia: Code(s): D64.9 - Anemia, unspecified Status: Acute Assessment and Plan: * likely due to MARINA, CKD, and acute illness * follow H/H * dose with Epogen with HD (7) Type 2 diabetes mellitus with hyperglycemia: Code(s): E11.65 - Type 2 diabetes mellitus with hyperglycemia Status: Chronic Assessment and Plan: * follow accuchecks * glycemic control Will continue to follow. Subjective Date/time seen: 02/17/22 13:51 Tolerating dialysis treatment at the time of my visit (seen on HD at 1:40PM); s/p temporary HD catheter earlier today and tolerated this procedure as well; noted overnight to have worsening insominia associated with fluctuating mental status and tremor/asterixis this AM; however, increase in urine output noted but BUN significantly higher. Exam Narrative: General: WD/WN female in NAD Heart: normal S1 and S2; no rub Lungs: coarse breath sounds Abdomen: soft, nontender, nondistended, positive bowel sounds Extremities: no cyanosis or clubbing; 1+ edema Skin: no rash Objective Data Vital Signs Vital Signs: Vital Signs Temp Pulse Resp BP Pulse Ox O2 Del Method FiO2 02/17/
--- NOTE | 2022-02-17 13:51 | PM.PNNEP ---
Progress Note: A&P Assessment and Plan (1) MARINA (acute kidney injury): Code(s): N17.9 - Acute kidney failure, unspecified Status: Acute Assessment and Plan: multifactorial etiology: contrast exposure (CT scan PE protocol) prerenal factors (as noted by urine electrolytes) necessity of IV diuretics fluctuating hemodynamics/blood pressure creatinine better and increase in urine output noted hyponatremia and metabolic acidosis a bit better as well renal ultrasound normal unfortunately, her rising BUN, fluctuating mental status, and asterixis seem to indicate that she is uremic s/p placement of temporary HD catheter today HD today and likely again tomorrow to facility clearance of the uremic poisons follow mentation with dialytic intervention (2) Stage 3b chronic kidney disease: Code(s): N18.32 - Chronic kidney disease, stage 3b Status: Acute Assessment and Plan: baseline creatinine runs ~ 1.5 - 1.6mg/dl (at best) but has been as high as 2.1mg/dl likely due to CAD/CHF, vascular disease, diabetes, and age-related change (3) Acute hypoxemic respiratory failure: Code(s): J96.01 - Acute respiratory failure with hypoxia Status: Chronic Assessment and Plan: multiple issues: acute on chronic CHF/pulmonary edema COPD RAINA uncontrolled HTN doing better at this time holding diuresis and ARB in the setting of #1 however, significant urine output noted (suspect post ATN diuresis) on nebulizer treatments, supplemental oxygen, and steroids BiPAP as needed (4) Acute on chronic diastolic heart failure: Code(s): I50.33 - Acute on chronic diastolic (congestive) heart failure Status: Acute Assessment and Plan: treated with IV diuretics initially follow repeat CXRs (clinically seems better) follow daily weights and I/Os Echo results noted (5) Hypertension: Code(s): I10 - Essential (primary) hypertension Status: Chronic Assessment and Plan: reasonable control at this time would avoid overcontrol given #1 follow trend of hemodynamics (6) Anemia: Code(s): D64.9 - Anemia, unspecified Status: Acute Assessment and Plan: likely due to MARINA, CKD, and acute illness follow H/H dose with Epogen with HD (7) Type 2 diabetes mellitus with hyperglycemia: Code(s): E11.65 - Type 2 diabetes mellitus with hyperglycemia Status: Chronic Assessment and Plan: follow accuchecks glycemic control Will continue to follow. Subjective Date/time seen: 02/17/22 13:51 Tolerating dialysis treatment at the time of my visit (seen on HD at 1:40PM); s/p temporary HD catheter earlier today and tolerated this procedure as well; noted overnight to have worsening insominia associated with fluctuating mental status and tremor/asterixis this AM; however, increase in urine output noted but BUN significantly higher. Exam Narrative: General: WD/WN female in NAD Heart: normal S1 and S2; no rub Lungs: coarse breath sounds Abdomen: soft, nontender, nondistended, positive bowel sounds Extremities: no cyanosis or clubbing; 1+ edema Skin: no rash Objective Data Vital Signs Vital Signs: Vital Signs Temp Pulse Resp BP Pulse Ox O2 Del Method FiO2 02/17/22 13:30 74 172/69 H 02/17/22 13:23 75 179/82 H 02/17/22 13:10 36.8 C 74 20 179/82 H 02/17/22 14:00 68 02/17/22 12:00 Room Air 02/17/22 12:00 77 02/17/22 12:00 36.5 C 94 20 149/75 H 94 02/17/22 10:00 60 02/17/22 08:00 Room Air 02/17/22 08:00 92 02/17/22 08:00 36.3 C L 89 14 186/70 H 95 02/17/22 08:40 92 Room Air 02/17/22 05:59 84 02/17/22 04:00 81 20 95 Room Air 35 02/17/22 04:00 81 02/17/22 04:00 36.6 C 90 20 165/76 H 95 02/17/22 02:00 74 02/17/22 00:00 66 20 95 Room Air
[2022-02-17] MEDS: SODIUM CHLORIDE 0.9% IV 1,000 ML 999 ML IV CONT (16:38)
[2022-02-17] MEDS: EPOETIN ALFA-EPBX 10,000 UNITS/ML VIAL 10000 UNITS IV PUSH (16:39)
[2022-02-17 17:32] LABS: Glucose Point of Care 166 mg/dl (65-105)
[2022-02-17 20:48] LABS: Glucose Point of Care 153 mg/dl (65-105)
[2022-02-17] MEDS: GABAPENTIN 400 MG CAPSULE 800 MG PO (20:48)
[2022-02-17] MEDS: hydrALAZINE HCL 20 MG/ML VIAL 10 MG IV PUSH (20:52)
[2022-02-17] MEDS: INSULIN GLARGINE (*BKC) 100 UNITS/ML 55 UNITS SUB-Q (22:52)
[2022-02-18] VITALS (25 sets, daily range): BP systolic 143–214; BP diastolic 46–98; PULSE 74–119; RESP 14–20; TEMP 36–36.8; O2SAT 85–99
[2022-02-18 00:59] LABS: Glucose Point of Care 137 mg/dl (65-105)
[2022-02-18 03:03] LABS: Hepatitis B Core Ab Total Nonreactive (Nonreactive)
[2022-02-18] MEDS: ONDANSETRON INJ 4 MG/2 ML VIAL IV PUSH (03:03)
[2022-02-18 04:45] LABS: Basophils Percent Auto 0.1 % (0.2-1.2); Eosinophils Absolute Auto 0.1 K/mm3 (0-0.3); Eosinophils Percent Auto 0.3 % (0-4.4); Hematocrit 24.7 % (37.0-47.0); Immature Granulocyte Absolute 0.25 K/mm3 (0.00-0.031); Immature Granulocyte Percent A 1.5 % (0-0.5); Lymphocytes Absolute Auto 0.94 K/mm3 (0.9-3.2); Lymphocytes Percent Auto 5.7 % (18.3-44.2); Mean Corpuscular HGB Conc 32.4 g/dl (32-36); Mean Corpuscular Hemoglobin 26.6 pg (26-34); Mean Corpuscular Volume 82.1 fl (80-100); Mean Platelet Volume 10.3 fl (7.4-10.4); Monocytes Absolute Auto 1.8 K/mm3 (0.1-0.6); Monocytes Percent Auto 10.8 % (2.6-8.5); Neutrophils Absolute Auto 13.6 K/mm3 (1.3-6.7); Neutrophils Percent Auto 81.6 % (45.5-73.1); Platelet Count Result 299 k/mm3 (150-375); Red Blood Count 3.01 M/mm3 (4.2-5.4); Red Cell Distribution Width 16.8 % (11.5-14.5); White Blood Count 16.6 K/mm3 (4.5-10.0)
[2022-02-18 05:01] LABS: Albumin Level 3.6 g/dL (3.5-5.1); Anion Gap 8 mmol/L (8-16); Blood Urea Nitrogen 83 mg/dL (7-17); Calcium 7.4 mg/dL (8.4-10.2); Carbon Dioxide 28 mmol/L (22-30); Chloride 97 mmol/L (98-107); Estimated CRCL calculation 22 ml/min; Estimated Glomerular Filt Rate 17; Glucose 54 mg/dL (65-110); Phosphorus 4.3 mg/dL (2.5-4.5); Potassium 4.5 mmol/L (3.4-5.0); Sodium 133 mmol/L (137-145)
[2022-02-18] MEDS: GLUCOSE ORAL GEL 15 GM OF GLUCSE IN 37.5 GM TUBE PO ×2 (05:07→07:51)
[2022-02-18 05:29] LABS: Glucose Point of Care 81 mg/dl (65-105)
[2022-02-18] MEDS: LEVOTHYROXINE SODIUM 100 MCG TABLET 200 MCG PO (06:36)
[2022-02-18] MEDS: DEXTROSE 50% 25 GM/50 ML SYRINGE IV PUSH (08:23)
[2022-02-18] MEDS: MONTELUKAST SODIUM 10 MG TABLET PO (08:30)
[2022-02-18] MEDS: ASPIRIN 81 MG CHEWABLE TABLET PO (08:30)
[2022-02-18] MEDS: FERROUS SULFATE 324 MG TABLET PO ×2 (08:30→18:05)
[2022-02-18] MEDS: GABAPENTIN 300 MG CAPSULE 600 MG PO ×2 (08:30→18:05)
[2022-02-18] MEDS: CYANOCOBALAMIN 1,000 MCG TABLET 2000 MCG PO (08:30)
[2022-02-18] MEDS: HEPARIN SODIUM 5,000 UNITS/ML VIAL 5000 UNITS SUB-Q ×2 (08:31→23:12)
[2022-02-18] MEDS: PANTOPRAZOLE 40 MG TABLET PO (08:31)
[2022-02-18] MEDS: FLUTICASONE PROPIONATE 0.05% NA SPR 16 GM BTL (*BKC) 2 SPRAY NASAL (08:31)
[2022-02-18] MEDS: VERAPAMIL HCL 180 MG TABLET ER 360 MG PO (08:31)
[2022-02-18] MEDS: CLOPIDOGREL BISULFATE 75 MG TABLET PO (08:31)
[2022-02-18] MEDS: TOLNAFTATE 1% POWDER 45 GM BTL 1 APPLIC TOPICAL ×2 (08:32→23:13)
[2022-02-18] MEDS: FLUTICASONE/UMECLIDIN/VILANTER 200-62.5-25 MCG ELLIPTA 1 PUFF INHALATION (08:50)
[2022-02-18 08:55] LABS: Glucose Point of Care 139 mg/dl (65-105)
[2022-02-18 08:55] LABS: Glucose Point of Care 68 mg/dl (65-105)
[2022-02-18 09:02] LABS: Glucose Point of Care 61 mg/dl (65-105)
--- NOTE | 2022-02-18 11:04 | PM.IMPN ---
Progress Note: A&P Assessment and Plan (1) Respiratory failure, acute: Code(s): J96.00 - Acute respiratory failure, unspecified whether with hypoxia or hypercapnia Status: Acute Assessment and Plan: Stable on room air Appreciate pulmonology consultation (2) COPD (chronic obstructive pulmonary disease): Code(s): J44.9 - Chronic obstructive pulmonary disease, unspecified Status: Acute Assessment and Plan: Completed 5 day course of steroids, continue Trelegy per pulmonology recommendations (3) RAINA (obstructive sleep apnea): Code(s): G47.33 - Obstructive sleep apnea (adult) (pediatric) Status: Acute Assessment and Plan: ApneaLink being run on room air Home O2 eval prior to discharge (4) Chronic kidney disease, stage III (moderate): Code(s): N18.3 - Chronic kidney disease, stage 3 (moderate) Status: Acute Assessment and Plan: Appreciate nephrology consultation, patient started dialysis yesterday (5) GERD without esophagitis: Code(s): K21.9 - Gastro-esophageal reflux disease without esophagitis Status: Acute Assessment and Plan: PPI (6) ARACELY (generalized anxiety disorder): Code(s): F41.1 - Generalized anxiety disorder Status: Acute Assessment and Plan: Stable on home meds (7) Coronary artery disease involving [place] heart without angina pectoris: Code(s): I25.10 - Atherosclerotic heart disease of [place] coronary artery without angina pectoris Status: Acute Assessment and Plan: Stable, cont home meds (8) Chronic diastolic (congestive) heart failure: Code(s): I50.32 - Chronic diastolic (congestive) heart failure Status: Acute Assessment and Plan: Fluid status will be managed by dialysis main (9) 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: Code(s): K22.70 - 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 Status: Acute Assessment and Plan: Stable, follow-up with GI outpatient (10) Type 2 diabetes mellitus with hyperglycemia: Code(s): E11.65 - Type 2 diabetes mellitus with hyperglycemia Status: Chronic Assessment and Plan: Accu-Cheks with sliding scale insulin, A1c 9.3 Home dose of insulin is 70 units of Lantus, however, patient had significant hypoglycemic episodes on this dose, was decreased to 55 units, still with hypoglycemia, will decrease to 25 units tonight and monitor, suspect patient has an extremely different diet at home than she is getting here (11) RLS (restless legs syndrome): Code(s): G25.81 - Restless legs syndrome Status: Acute Assessment and Plan: Stable, continue home meds Plan DVT prophylaxis with heparin GI prophylaxis with PPI Code status full code Subjective Date/time seen: 02/18/22 11:04 Interval history: No overnight events noted. No chest pain or shortness of breath. No nausea, vomiting or diarrhea. No fevers or chills. Patient continues to have intermittent somnolent episodes when she becomes hypoglycemic. Review of Systems Review of Systems: 12 point review of systems was assessed and was negative except as noted in the HPI Exam Narrative: General: No acute distress, alert and oriented per baseline, on 2 L nasal cannula HEENT: Atraumatic, normocephalic, mucous membranes moist CV: Regular rate and rhythm, S1, S2 Lungs: Clear to auscultation bilaterally, no rales or crackles noted, no wheezes, good air entry Abdomen: Soft, nontender, nondistended Extremities: Normal to inspection Skin: No rashes noted, no lesions or wounds seen Psych: Euthymic, normal affect Objective Data Vital Signs Vital Signs: Vital Signs - 24 hr 02/17/22 12:00 02/17/22 12:00 02/17/22 12:00 Temperature 97.7 F Pulse Rate 94 77 Respiratory Rate 20 Blood Pressure 149/75 H Pulse Oximetry 94 Oxygen Delivery Room Air Oxygen Flow Rate 02/17/22 14:00 02/17/22 13:10 02/17/22 13:
[2022-02-18 13:07] LABS: Glucose Point of Care 111 mg/dl (65-105)
--- NOTE | 2022-02-18 14:03 | P.PNNP_ITS ---
Progress Note: A&P Assessment and Plan (1) MARINA (acute kidney injury): Code(s): N17.9 - Acute kidney failure, unspecified Status: Acute Assessment and Plan: * multifactorial etiology: * contrast exposure (CT scan PE protocol) * prerenal factors (as noted by urine electrolytes) * necessity of IV diuretics * fluctuating hemodynamics/blood pressure * creatinine better and increase in urine output noted * hyponatremia and metabolic acidosis a bit better as well * renal ultrasound normal * initiated on [employer]/dialysis due to concerns of overt uremia (fluctuating mental status, somnolence, and asterixis) * s/p placement of temporary HD catheter (on 02/17/22) * HD yesterday and today to facilitate clearance of the uremic poisons * follow mentation with dialytic intervention (2) Stage 3b chronic kidney disease: Code(s): N18.32 - Chronic kidney disease, stage 3b Status: Acute Assessment and Plan: * baseline creatinine runs ~ 1.5 - 1.6mg/dl (at best) but has been as high as 2.1mg/dl * likely due to CAD/CHF, vascular disease, diabetes, and age-related change (3) Acute hypoxemic respiratory failure: Code(s): J96.01 - Acute respiratory failure with hypoxia Status: Chronic Assessment and Plan: * relatively stable if not improving * multiple issues: * acute on chronic CHF/pulmonary edema * COPD * RAINA * uncontrolled HTN * holding diuresis and ARB in the setting of #1 * however, significant urine output noted (suspect post ATN diuresis) * on nebulizer treatments, supplemental oxygen, and steroids * BiPAP as needed (4) Acute on chronic diastolic heart failure: Code(s): I50.33 - Acute on chronic diastolic (congestive) heart failure Status: Acute Assessment and Plan: * improving if not stable * treated with IV diuretics initially * follow repeat CXRs (clinically seems better) * follow daily weights and I/Os * Echo results noted (5) Hypertension: Code(s): I10 - Essential (primary) hypertension Status: Chronic Assessment and Plan: * reasonable control at this time * would avoid overcontrol given #1 * follow trend of hemodynamics (6) Anemia: Code(s): D64.9 - Anemia, unspecified Status: Acute Assessment and Plan: * likely due to MARINA, CKD, and acute illness * follow H/H * dose with Epogen with HD (7) Type 2 diabetes mellitus with hyperglycemia: Code(s): E11.65 - Type 2 diabetes mellitus with hyperglycemia Status: Chronic Assessment and Plan: * follow accuchecks * glycemic control Will continue to follow. Subjective Date/time seen: 02/18/22 14:01 Tolerating dialysis at the time of my visit (seen on HD at 1: 45PM); mentation continues to fluctuate but she reports no distress (but falls asleep when I am taking to her); she apparently slept better last night than the previous evening; continues to make good urine output; tolerated dialysis yesterday without any problems. Exam Narrative: General: WD/WN female sleepy but in NAD Heart: normal S1 and S2; no rub Lungs: coarse breath sounds Abdomen: soft, nontender, nondistended, positive bowel sounds Extremities: no cyanosis or clubbing; 1+ edema Skin: no nodules Objective Data Vital Signs Vital Signs: Vital Signs Temp Pulse Resp BP Pulse Ox O2
--- NOTE | 2022-02-18 14:03 | PM.PNNEP ---
Progress Note: A&P Assessment and Plan (1) MARINA (acute kidney injury): Code(s): N17.9 - Acute kidney failure, unspecified Status: Acute Assessment and Plan: multifactorial etiology: contrast exposure (CT scan PE protocol) prerenal factors (as noted by urine electrolytes) necessity of IV diuretics fluctuating hemodynamics/blood pressure creatinine better and increase in urine output noted hyponatremia and metabolic acidosis a bit better as well renal ultrasound normal initiated on [employer]/dialysis due to concerns of overt uremia (fluctuating mental status, somnolence, and asterixis) s/p placement of temporary HD catheter (on 02/17/22) HD yesterday and today to facilitate clearance of the uremic poisons follow mentation with dialytic intervention (2) Stage 3b chronic kidney disease: Code(s): N18.32 - Chronic kidney disease, stage 3b Status: Acute Assessment and Plan: baseline creatinine runs ~ 1.5 - 1.6mg/dl (at best) but has been as high as 2.1mg/dl likely due to CAD/CHF, vascular disease, diabetes, and age-related change (3) Acute hypoxemic respiratory failure: Code(s): J96.01 - Acute respiratory failure with hypoxia Status: Chronic Assessment and Plan: relatively stable if not improving multiple issues: acute on chronic CHF/pulmonary edema COPD RAINA uncontrolled HTN holding diuresis and ARB in the setting of #1 however, significant urine output noted (suspect post ATN diuresis) on nebulizer treatments, supplemental oxygen, and steroids BiPAP as needed (4) Acute on chronic diastolic heart failure: Code(s): I50.33 - Acute on chronic diastolic (congestive) heart failure Status: Acute Assessment and Plan: improving if not stable treated with IV diuretics initially follow repeat CXRs (clinically seems better) follow daily weights and I/Os Echo results noted (5) Hypertension: Code(s): I10 - Essential (primary) hypertension Status: Chronic Assessment and Plan: reasonable control at this time would avoid overcontrol given #1 follow trend of hemodynamics (6) Anemia: Code(s): D64.9 - Anemia, unspecified Status: Acute Assessment and Plan: likely due to MARINA, CKD, and acute illness follow H/H dose with Epogen with HD (7) Type 2 diabetes mellitus with hyperglycemia: Code(s): E11.65 - Type 2 diabetes mellitus with hyperglycemia Status: Chronic Assessment and Plan: follow accuchecks glycemic control Will continue to follow. Subjective Date/time seen: 02/18/22 14:01 Tolerating dialysis at the time of my visit (seen on HD at 1: 45PM); mentation continues to fluctuate but she reports no distress (but falls asleep when I am taking to her); she apparently slept better last night than the previous evening; continues to make good urine output; tolerated dialysis yesterday without any problems. Exam Narrative: General: WD/WN female sleepy but in NAD Heart: normal S1 and S2; no rub Lungs: coarse breath sounds Abdomen: soft, nontender, nondistended, positive bowel sounds Extremities: no cyanosis or clubbing; 1+ edema Skin: no nodules Objective Data Vital Signs Vital Signs: Vital Signs Temp Pulse Resp BP Pulse Ox O2 Del Method O2 Flow Rate 02/18/22 14:00 119 H 161/59 H 02/18/22 13:40 105 H 160/66 H 02/18/22 13:30 1 02/18/22 12:00 99 Nasal Cannula 1 02/18/22 14:00 79 02/18/22 12:00 74 02/18/22 10:00 80 02/18/22 08:00 87 02/18/22 13:30 36.6 C 77 20 161/59 H 02/18/22 12:00 36.5 C 82 18 172/72 H 99 02/18/22 08:00 98 Nasal Cannula 2 02/18/22 08:00 36.3 C L 81 20 159/69 H 98 02/18/22 06:00 83 02/18/22 04:00 82 02/18/22 04:00 82 17 98 Nasal Cannula 2 02/18/22 05:47 36.3 C L 82 17 161/81 H 98
--- NOTE | 2022-02-18 14:20 | PC.NURSE ---
Patient transported to dialysis by bed at 1415. Patient to be under care of generation manager until returning to the IMU department.
[2022-02-18 16:30] LABS: Glucose Point of Care 74 mg/dl (65-105)
[2022-02-18] MEDS: SODIUM CHLORIDE 0.9% IV 1,000 ML 999 ML IV CONT (16:43)
[2022-02-18] MEDS: EPOETIN ALFA-EPBX 10,000 UNITS/ML VIAL 10000 UNITS IV PUSH (16:44)
--- NOTE | 2022-02-18 17:34 | PC.NURSE ---
Patient back from dialysis at 1733. Patient in room with call light in reach.
[2022-02-18 17:42] LABS: Glucose Point of Care 211 mg/dl (65-105)
[2022-02-18] MEDS: INSULIN ASPART (*BKC) 100 UNITS/ML SUB-Q (18:06)
[2022-02-18 20:24] LABS: Glucose Point of Care 151 mg/dl (65-105)
[2022-02-18] MEDS: GABAPENTIN 400 MG CAPSULE 800 MG PO (23:12)
[2022-02-18] MEDS: INSULIN GLARGINE (*BKC) 100 UNITS/ML 25 UNITS SUB-Q (23:16)
[2022-02-19] VITALS (17 sets, daily range): BP systolic 130–184; BP diastolic 50–75; PULSE 75–91; RESP 16–22; TEMP 36.7–36.9; O2SAT 85–100
[2022-02-19 04:29] LABS: Glucose Point of Care 123 mg/dl (65-105)
[2022-02-19 05:02] LABS: Basophils Percent Auto 0.1 % (0.2-1.2); Eosinophils Percent Auto 0.1 % (0-4.4); Hematocrit 23.9 % (37.0-47.0); Hemoglobin 7.4 g/dL (12.0-15.0); Immature Granulocyte Percent A 1.6 % (0-0.5); Lymphocytes Absolute Auto 0.97 K/mm3 (0.9-3.2); Lymphocytes Percent Auto 7.6 % (18.3-44.2); Mean Corpuscular Hemoglobin 26.1 pg (26-34); Mean Corpuscular Volume 84.5 fl (80-100); Monocytes Absolute Auto 1.8 K/mm3 (0.1-0.6); Monocytes Percent Auto 13.7 % (2.6-8.5); Neutrophils Absolute Auto 9.9 K/mm3 (1.3-6.7); Neutrophils Percent Auto 76.9 % (45.5-73.1); Nucleated Red Blood Cells Perc 0.2 % (0.0-0.2); Platelet Count Result 243 k/mm3 (150-375); Red Blood Count 2.83 M/mm3 (4.2-5.4); Red Cell Distribution Width 16.9 % (11.5-14.5); White Blood Count 12.8 K/mm3 (4.5-10.0)
[2022-02-19 05:17] LABS: Albumin Level 3.4 g/dL (3.5-5.1); Anion Gap 9 mmol/L (8-16); Blood Urea Nitrogen 51 mg/dL (7-17); Calcium 7.7 mg/dL (8.4-10.2); Carbon Dioxide 29 mmol/L (22-30); Chloride 98 mmol/L (98-107); Estimated CRCL calculation 29 ml/min; Estimated Glomerular Filt Rate 22; Glucose 107 mg/dL (65-110); Phosphorus 3.7 mg/dL (2.5-4.5); Potassium 4.2 mmol/L (3.4-5.0); Sodium 136 mmol/L (137-145)
[2022-02-19] MEDS: LEVOTHYROXINE SODIUM 100 MCG TABLET 200 MCG PO (05:51)
--- NOTE | 2022-02-19 08:24 | PM.IMPN ---
Progress Note: A&P Assessment and Plan (1) Respiratory failure, acute: Code(s): J96.00 - Acute respiratory failure, unspecified whether with hypoxia or hypercapnia Status: Acute Assessment and Plan: Stable on room air Appreciate pulmonology consultation (2) COPD (chronic obstructive pulmonary disease): Code(s): J44.9 - Chronic obstructive pulmonary disease, unspecified Status: Acute Assessment and Plan: Completed 5 day course of steroids, continue Trelegy per pulmonology recommendations (3) RAINA (obstructive sleep apnea): Code(s): G47.33 - Obstructive sleep apnea (adult) (pediatric) Status: Acute Assessment and Plan: ApneaLink being run on room air Home O2 eval prior to discharge (4) Chronic kidney disease, stage III (moderate): Code(s): N18.3 - Chronic kidney disease, stage 3 (moderate) Status: Acute Assessment and Plan: Appreciate nephrology consultation, patient started dialysis 02/17, doing well (5) GERD without esophagitis: Code(s): K21.9 - Gastro-esophageal reflux disease without esophagitis Status: Acute Assessment and Plan: PPI (6) ARACELY (generalized anxiety disorder): Code(s): F41.1 - Generalized anxiety disorder Status: Acute Assessment and Plan: Stable on home meds (7) Coronary artery disease involving [place] heart without angina pectoris: Code(s): I25.10 - Atherosclerotic heart disease of [place] coronary artery without angina pectoris Status: Acute Assessment and Plan: Stable, cont home meds (8) Chronic diastolic (congestive) heart failure: Code(s): I50.32 - Chronic diastolic (congestive) heart failure Status: Acute Assessment and Plan: Fluid status will be managed by dialysis mainly (9) 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: Code(s): K22.70 - 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 Status: Acute Assessment and Plan: Stable, follow-up with GI outpatient (10) Type 2 diabetes mellitus with hyperglycemia: Code(s): E11.65 - Type 2 diabetes mellitus with hyperglycemia Status: Chronic Assessment and Plan: Accu-Cheks with sliding scale insulin, A1c 9.3 Home dose of insulin is 70 units of Lantus, however, patient had significant hypoglycemic episodes on this dose, was decreased to 55 units, still with hypoglycemia, was decreased to 25 units last night, fasting blood glucose was 123, will increase Lantus to 30 units tonight and continue to monitor Suspect patient has an extremely different diet at home than she is getting here (11) RLS (restless legs syndrome): Code(s): G25.81 - Restless legs syndrome Status: Acute Assessment and Plan: Stable, continue home meds Plan Will send a urinalysis and culture due to patient's altered mental status overnight. Discharge planning soon pending Nephrology final recommendations. DVT prophylaxis with heparin GI prophylaxis with PPI Code status full code Subjective Date/time seen: 02/19/22 08:24 Interval history: Overnight patient became somewhat confused and incoherent. Daughter states the last time she was like this she had a UTI. All symptoms resolved by morning. Patient does not have any recollection of these episodes. No chest pain or shortness of breath. No nausea, vomiting or diarrhea. No fevers or chills. Review of Systems Review of Systems: 12 point review of systems was assessed and was negative except as noted in the HPI Exam Narrative: General: No acute distress, alert and oriented per baseline HEENT: Atraumatic, normocephalic, mucous membranes moist CV: Regular rate and rhythm, S1, S2 Lungs: Clear to auscultation bilaterally, no rales or crackles noted, no wheezes, good air entry Abdomen: Soft, nontender, nondistended Extremities: Normal to inspection Skin: No rashes noted, no lesions or wounds seen Psych: Euthymic, normal affect
[2022-02-19 08:29] LABS: Glucose Point of Care 135 mg/dl (65-105)
[2022-02-19] MEDS: FLUTICASONE/UMECLIDIN/VILANTER 200-62.5-25 MCG ELLIPTA 1 PUFF INHALATION (08:49)
[2022-02-19] MEDS: ASPIRIN 81 MG CHEWABLE TABLET PO (09:36)
[2022-02-19] MEDS: PANTOPRAZOLE 40 MG TABLET PO (09:36)
[2022-02-19] MEDS: MONTELUKAST SODIUM 10 MG TABLET PO (09:36)
[2022-02-19] MEDS: FERROUS SULFATE 324 MG TABLET PO ×2 (09:36→17:09)
[2022-02-19] MEDS: CLOPIDOGREL BISULFATE 75 MG TABLET PO (09:36)
[2022-02-19] MEDS: HEPARIN SODIUM 5,000 UNITS/ML VIAL 5000 UNITS SUB-Q ×2 (09:36→22:08)
[2022-02-19] MEDS: VERAPAMIL HCL 180 MG TABLET ER 360 MG PO (09:36)
[2022-02-19] MEDS: TOLNAFTATE 1% POWDER 45 GM BTL 1 APPLIC TOPICAL ×2 (09:37→22:11)
[2022-02-19] MEDS: FLUTICASONE PROPIONATE 0.05% NA SPR 16 GM BTL (*BKC) 2 SPRAY NASAL (09:37)
[2022-02-19] MEDS: GABAPENTIN 300 MG CAPSULE 600 MG PO ×2 (09:37→17:09)
[2022-02-19] MEDS: CYANOCOBALAMIN 1,000 MCG TABLET 2000 MCG PO (09:37)
--- NOTE | 2022-02-19 11:27 | PM.PNNEP ---
Progress Note: A&P Assessment and Plan (1) MARINA (acute kidney injury): Code(s): N17.9 - Acute kidney failure, unspecified Status: Acute Assessment and Plan: multifactorial etiology: contrast exposure (CT scan PE protocol) prerenal factors (as noted by urine electrolytes) necessity of IV diuretics fluctuating hemodynamics/blood pressure creatinine better and increase in urine output noted hyponatremia and metabolic acidosis a bit better as well renal ultrasound normal initiated on [employer]/dialysis due to concerns of overt uremia (fluctuating mental status, somnolence, and asterixis) s/p placement of temporary HD catheter (on 02/17/22) HD on 02/17 and 02/18 to facilitate clearance of the uremic poisons follow mentation with dialytic intervention hold HD today and reassess tomorrow (2) Stage 3b chronic kidney disease: Code(s): N18.32 - Chronic kidney disease, stage 3b Status: Acute Assessment and Plan: baseline creatinine runs ~ 1.5 - 1.6mg/dl (at best) but has been as high as 2.1mg/dl likely due to CAD/CHF, vascular disease, diabetes, and age-related change (3) Acute hypoxemic respiratory failure: Code(s): J96.01 - Acute respiratory failure with hypoxia Status: Chronic Assessment and Plan: relatively stable if not improving multiple issues: acute on chronic CHF/pulmonary edema COPD RAINA uncontrolled HTN holding diuresis and ARB in the setting of #1 however, significant urine output noted (suspect post ATN diuresis) on nebulizer treatments, supplemental oxygen, and steroids BiPAP as needed (4) Acute on chronic diastolic heart failure: Code(s): I50.33 - Acute on chronic diastolic (congestive) heart failure Status: Acute Assessment and Plan: improving if not stable treated with IV diuretics initially follow repeat CXRs (clinically seems better) follow daily weights and I/Os Echo results noted (5) Hypertension: Code(s): I10 - Essential (primary) hypertension Status: Chronic Assessment and Plan: reasonable control at this time would avoid overcontrol given #1 follow trend of hemodynamics (6) Anemia: Code(s): D64.9 - Anemia, unspecified Status: Acute Assessment and Plan: likely due to MARINA, CKD, and acute illness follow H/H dose with Epogen with HD (7) Type 2 diabetes mellitus with hyperglycemia: Code(s): E11.65 - Type 2 diabetes mellitus with hyperglycemia Status: Chronic Assessment and Plan: follow accuchecks glycemic control Will continue to follow. Subjective Date/time seen: 02/19/22 11:27 Tolerated hemodialysis treatment yesterday afternoon without any issues or problems; more confusion overnight but significantly better earlier this morning; no apparent distress voiced at this time; mentation seems to be doing quite well at this time; continues to make reasonable urine output. Exam Narrative: General: WD/WN female sleepy but in NAD Heart: normal S1 and S2; no rub Lungs: coarse breath sounds Abdomen: soft, nontender, nondistended, positive bowel sounds Extremities: no cyanosis or clubbing; 1+ edema Skin: no nodules Objective Data Vital Signs Vital Signs: Vital Signs Temp Pulse Resp BP Pulse Ox O2 Del Method O2 Flow Rate 02/19/22 10:36 96 Nasal Cannula 1 02/19/22 08:00 97 Nasal Cannula 2 02/19/22 10:00 82 02/19/22 08:00 85 02/19/22 08:49 97 Nasal Cannula 2 02/19/22 08:00 36.8 C 91 20 184/68 H 100 02/19/22 05:31 82 02/19/22 03:29 88 22 H 97 Nasal Cannula 2 02/19/22 04:00 36.9 C 88 22 H 169/62 H 97 02/19/22 04:00 82 02/19/22 02:00 88 02/19/22 00:00 89 02/18/22 22:00 88 02/18/22 20:00 83 02/18/22 22:00 85 L Nasal Cannula 2 02/18/22 23:33 86 20 96 Nasal Cannula 2 1
--- NOTE | 2022-02-19 11:27 | P.PNNP_ITS ---
Progress Note: A&P Assessment and Plan (1) MARINA (acute kidney injury): Code(s): N17.9 - Acute kidney failure, unspecified Status: Acute Assessment and Plan: * multifactorial etiology: * contrast exposure (CT scan PE protocol) * prerenal factors (as noted by urine electrolytes) * necessity of IV diuretics * fluctuating hemodynamics/blood pressure * creatinine better and increase in urine output noted * hyponatremia and metabolic acidosis a bit better as well * renal ultrasound normal * initiated on [employer]/dialysis due to concerns of overt uremia (fluctuating mental status, somnolence, and asterixis) * s/p placement of temporary HD catheter (on 02/17/22) * HD on 02/17 and 02/18 to facilitate clearance of the uremic poisons * follow mentation with dialytic intervention * hold HD today and reassess tomorrow (2) Stage 3b chronic kidney disease: Code(s): N18.32 - Chronic kidney disease, stage 3b Status: Acute Assessment and Plan: * baseline creatinine runs ~ 1.5 - 1.6mg/dl (at best) but has been as high as 2.1mg/dl * likely due to CAD/CHF, vascular disease, diabetes, and age-related change (3) Acute hypoxemic respiratory failure: Code(s): J96.01 - Acute respiratory failure with hypoxia Status: Chronic Assessment and Plan: * relatively stable if not improving * multiple issues: * acute on chronic CHF/pulmonary edema * COPD * RAINA * uncontrolled HTN * holding diuresis and ARB in the setting of #1 * however, significant urine output noted (suspect post ATN diuresis) * on nebulizer treatments, supplemental oxygen, and steroids * BiPAP as needed (4) Acute on chronic diastolic heart failure: Code(s): I50.33 - Acute on chronic diastolic (congestive) heart failure Status: Acute Assessment and Plan: * improving if not stable * treated with IV diuretics initially * follow repeat CXRs (clinically seems better) * follow daily weights and I/Os * Echo results noted (5) Hypertension: Code(s): I10 - Essential (primary) hypertension Status: Chronic Assessment and Plan: * reasonable control at this time * would avoid overcontrol given #1 * follow trend of hemodynamics (6) Anemia: Code(s): D64.9 - Anemia, unspecified Status: Acute Assessment and Plan: * likely due to MARINA, CKD, and acute illness * follow H/H * dose with Epogen with HD (7) Type 2 diabetes mellitus with hyperglycemia: Code(s): E11.65 - Type 2 diabetes mellitus with hyperglycemia Status: Chronic Assessment and Plan: * follow accuchecks * glycemic control Will continue to follow. Subjective Date/time seen: 02/19/22 11:27 Tolerated hemodialysis treatment yesterday afternoon without any issues or problems; more confusion overnight but significantly better earlier this morning; no apparent distress voiced at this time; mentation seems to be doing quite well at this time; continues to make reasonable urine output. Exam Narrative: General: WD/WN female sleepy but in NAD Heart: normal S1 and S2; no rub Lungs: coarse breath sounds Abdomen: soft, nontender, nondistended, positive bowel sounds Extremities: no cyanosis or clubbing; 1+ edema Skin: no nodules Objective Data Vital Signs Vital Signs: Vital Signs Temp Pulse Resp BP Pulse O
[2022-02-19 12:47] LABS: Glucose Point of Care 164 mg/dl (65-105)
[2022-02-19 12:54] LABS: Glucose Point of Care 194 mg/dl (65-105)
[2022-02-19 13:04] LABS: Add Urine Microscopic? YES; Appearance Urine Cloudy (Clear); Bacteria Urine 3+ /hpf; Bilirubin Urine Negative (Negative); Blood Urine 3+ (Negative); Glucose Urine UA Negative (Negative); Ketones Urine Negative (Negative); Leukocyte Esterase Ur 3+ LEU/UL (NEGATIVE); Nitrate Urine Negative (Negative); Protein Urine 2+ mg/dL (Negative); Specific Grav Ur 1.013 (1.001-1.035); Squamous Epithelial Cell Urine Rare /hpf (Few); Urobilinogen Urine Negative mg/dL (<2.0); WBC Clumps Urine Present /HPF; WBC Urine 31-50 /hpf (0-3)
[2022-02-19 13:24] LABS: Color Urine Yellow (Yellow)
[2022-02-19 17:07] LABS: Glucose Point of Care 207 mg/dl (65-105)
[2022-02-19] MEDS: INSULIN ASPART (*BKC) 100 UNITS/ML SUB-Q (17:39)
[2022-02-19 20:48] LABS: Glucose Point of Care 292 mg/dl (65-105)
[2022-02-19] MEDS: GABAPENTIN 400 MG CAPSULE 800 MG PO (22:09)
[2022-02-19] MEDS: INSULIN GLARGINE (*BKC) 100 UNITS/ML 30 UNITS SUB-Q (22:10)
[2022-02-20] VITALS (23 sets, daily range): BP systolic 149–214; BP diastolic 59–109; PULSE 73–91; RESP 11–26; TEMP 36.6–37.4; O2SAT 93–98
[2022-02-20 05:10] LABS: Basophils Percent Auto 0.2 % (0.2-1.2); Eosinophils Percent Auto 0.2 % (0-4.4); Hematocrit 24.9 % (37.0-47.0); Immature Granulocyte Absolute 0.27 K/mm3 (0.00-0.031); Immature Granulocyte Percent A 1.6 % (0-0.5); Lymphocytes Absolute Auto 0.84 K/mm3 (0.9-3.2); Mean Corpuscular HGB Conc 32.1 g/dl (32-36); Mean Corpuscular Hemoglobin 26.4 pg (26-34); Mean Corpuscular Volume 82.2 fl (80-100); Monocytes Absolute Auto 2.1 K/mm3 (0.1-0.6); Monocytes Percent Auto 12.3 % (2.6-8.5); Neutrophils Absolute Auto 13.5 K/mm3 (1.3-6.7); Neutrophils Percent Auto 80.7 % (45.5-73.1); Platelet Count Result 288 k/mm3 (150-375); Red Blood Count 3.03 M/mm3 (4.2-5.4); Red Cell Distribution Width 16.7 % (11.5-14.5); White Blood Count 16.8 K/mm3 (4.5-10.0)
[2022-02-20 05:26] LABS: Albumin Level 3.5 g/dL (3.5-5.1); Anion Gap 9 mmol/L (8-16); Blood Urea Nitrogen 52 mg/dL (7-17); Calcium 8.2 mg/dL (8.4-10.2); Carbon Dioxide 27 mmol/L (22-30); Chloride 97 mmol/L (98-107); Estimated CRCL calculation 27 ml/min; Estimated Glomerular Filt Rate 20; Glucose 224 mg/dL (65-110); Phosphorus 3.5 mg/dL (2.5-4.5); Potassium 4.3 mmol/L (3.4-5.0); Sodium 133 mmol/L (137-145)
[2022-02-20] MEDS: hydrALAZINE HCL 20 MG/ML VIAL 10 MG IV PUSH ×2 (06:08→08:53)
[2022-02-20] MEDS: LEVOTHYROXINE SODIUM 100 MCG TABLET 200 MCG PO (06:09)
--- NOTE | 2022-02-20 07:51 | PM.IMPN ---
Progress Note: A&P Assessment and Plan (1) Respiratory failure, acute: Code(s): J96.00 - Acute respiratory failure, unspecified whether with hypoxia or hypercapnia Status: Acute Assessment and Plan: Worsened overnight, pulm re-consulted, concern for pneumonia developing CXR, ABG, blood cx, abx started, vanc + imipenem, MRSA swab pending (2) COPD (chronic obstructive pulmonary disease): Code(s): J44.9 - Chronic obstructive pulmonary disease, unspecified Status: Acute Assessment and Plan: Completed 5 day course of steroids, continue Trelegy per pulmonology recommendations (3) RAINA (obstructive sleep apnea): Code(s): G47.33 - Obstructive sleep apnea (adult) (pediatric) Status: Acute Assessment and Plan: ApneaLink/nocturnal pulse ox to be run on room air prior to discharge Home O2 eval prior to discharge (4) Chronic kidney disease, stage III (moderate): Code(s): N18.3 - Chronic kidney disease, stage 3 (moderate) Status: Acute Assessment and Plan: Appreciate nephrology consultation, patient started dialysis 02/17, doing well Will skip dialysis today as urine output is increasing, give diuretics, monitor (5) GERD without esophagitis: Code(s): K21.9 - Gastro-esophageal reflux disease without esophagitis Status: Acute Assessment and Plan: PPI (6) ARACELY (generalized anxiety disorder): Code(s): F41.1 - Generalized anxiety disorder Status: Acute Assessment and Plan: Stable on home meds (7) Coronary artery disease involving [place] heart without angina pectoris: Code(s): I25.10 - Atherosclerotic heart disease of [place] coronary artery without angina pectoris Status: Acute Assessment and Plan: Stable, cont home meds (8) Chronic diastolic (congestive) heart failure: Code(s): I50.32 - Chronic diastolic (congestive) heart failure Status: Acute Assessment and Plan: Fluid status managed by Nephrology at this time (9) 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: Code(s): K22.70 - 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 Status: Acute Assessment and Plan: Stable, follow-up with GI outpatient (10) Type 2 diabetes mellitus with hyperglycemia: Code(s): E11.65 - Type 2 diabetes mellitus with hyperglycemia Status: Chronic Assessment and Plan: Accu-Cheks with sliding scale insulin, A1c 9.3 Home dose of insulin is 70 units of Lantus, however, patient had significant hypoglycemic episodes on this dose, was decreased to 55 units, still with hypoglycemia, was decreased to 25 units, fasting blood glucose was 123, then increased Lantus to 30 units, fasting blood glucose was 224, will give Lantus 40 units tonight Suspect patient has an extremely different diet at home than she is getting here (11) RLS (restless legs syndrome): Code(s): G25.81 - Restless legs syndrome Status: Acute Assessment and Plan: Stable, continue home meds (12) Abnormal urinalysis: Code(s): R82.90 - Unspecified abnormal findings in urine Status: Acute Assessment and Plan: Urine culture pending, possible UTI, continue antibiotics Plan DVT prophylaxis with heparin GI prophylaxis with PPI Code status full code Subjective Date/time seen: 02/20/22 07:51 Interval history: Patient was a little bit more confused and short of breath this morning. She was moved to the ICU send nursing staff could keep a closer eye on her. No fevers noted. No overnight events noted. Review of Systems Review of Systems: ROS unobtainable: Yes unobtainable due to mental status Exam Narrative: General: Appears to be in acute respiratory distress with belly breathing, lethargic HEENT: Atraumatic, normocephalic, mucous membranes moist CV: Regular rate and rhythm, S1, S2 Lungs: Diminished air entry throughout, expiratory wheezes heard, some scattered crackles noted Abdome
[2022-02-20 08:20] LABS: Glucose Point of Care 230 mg/dl (65-105)
[2022-02-20 08:32] LABS: Alveolar/Arterial O2 Gradient 139.2 mmHg; Base Excess ABG 2.4 mEq/l (+/-2.0); Fractional Inspired Oxygen 36 %; HCO3 ABG 26.3 mEq/l (22.0-26.0); Oxygen Content ABG 11.1 %vol (16.0-22.0); Oxygen Saturation ABG 95.6 % (95.0-100.0); Oxyhemoglobin 94.4 % THb (90.0-100.0); PCO2 ABG 37.7 mmHg (35.0-45.0); PO2 ABG 73.8 mmHg (80.0-100.0); PO2 FiO2 Ratio Arterial Blood 2.05 %; Total Hemoglobin 8.3 g/dL (12.0-18.0); pH ABG 7.462 (7.350-7.450)
[2022-02-20 08:33] LABS: Device NASAL CANNULA; Modified Allen's Test Pass; Site Drawn RIGHT RADIAL
[2022-02-20] MEDS: LEVALBUTEROL NEB 1.25 MG/3 ML (08:37)
--- NOTE | 2022-02-20 08:37 | PM.PNNEP ---
Progress Note: A&P Assessment and Plan (1) MARINA (acute kidney injury): Code(s): N17.9 - Acute kidney failure, unspecified Status: Acute Assessment and Plan: multifactorial etiology: contrast exposure (CT scan PE protocol) prerenal factors (as noted by urine electrolytes) necessity of IV diuretics fluctuating hemodynamics/blood pressure Urine output was good over the weekend. He she made about 1700 on Sunday and 800 overnight. Her creatinine was 2.2 yesterday and 2.4 today I think she is probably opening up. renal ultrasound normal She is lethargic today, however I do not think this is uremia as her BUN is only in the 50s. She has evidence of sepsis as well such as high white count etc so I think that is probably causing her lethargy. She did get a chest x-ray showing some pulmonary edema. Since she made somewhat urine I am going to add diuretics to the regimen. Will hold off on dialysis today. (2) Stage 3b chronic kidney disease: Code(s): N18.32 - Chronic kidney disease, stage 3b Status: Acute Assessment and Plan: baseline creatinine runs ~ 1.5 - 1.6mg/dl (at best) but has been as high as 2.1mg/dl likely due to CAD/CHF, vascular disease, diabetes, and age-related change (3) Acute hypoxemic respiratory failure: Code(s): J96.01 - Acute respiratory failure with hypoxia Status: Chronic Assessment and Plan: relatively stable if not improving multiple issues: acute on chronic CHF/pulmonary edema COPD RAINA uncontrolled HTN Because of her lethargy, I think sleep apnea is going to be playing more of a role so I asked the nursing to have a BiPAP placed and they will get settings from the hospitalist. (4) Acute on chronic diastolic heart failure: Code(s): I50.33 - Acute on chronic diastolic (congestive) heart failure Status: Acute Assessment and Plan: Chest x-ray today showed pulmonary edema. Will give diuretics. (5) Hypertension: Code(s): I10 - Essential (primary) hypertension Status: Chronic Assessment and Plan: Blood pressure is a bit high today. It is listed as 214/60 in the chart earlier however they checked another blood pressure : it was 180. I asked the nurse to give her 10 mg of Hydralazine IV now. (6) Anemia: Code(s): D64.9 - Anemia, unspecified Status: Acute Assessment and Plan: likely due to MARINA, CKD, and acute illness Hemoglobin is 8 today. Re-dose EPO once blood pressure is better. (7) Type 2 diabetes mellitus with hyperglycemia: Code(s): E11.65 - Type 2 diabetes mellitus with hyperglycemia Status: Chronic Assessment and Plan: On Accu-Cheks and sliding-scale insulin per hospitalist. (8) Sepsis: Code(s): A41.9 - Sepsis, unspecified organism Status: Acute Assessment and Plan: the patient looks septic. She is more lethargic, white count is elevated. She is moving to the ICU. Blood cultures have been done. She is going on vancomycin plus imipenem. Subjective Date/time seen: 02/20/22 08:37 Interval history: Gregoria is somewhat lethargic today. She can answer some questions. She is not short of breath. She is not in pain. Nursing says that over the past few are she is become more lethargic. Oxygenation is a little bit lower. She has sleep apnea but she refuses to use a CPAP mask. Review of Systems Cardiovascular: Cardiovascular: Reports no additional cardiovascular complaints Respiratory: Respiratory: Reports no additional respiratory complaints Gastrointestinal: Gastrointestinal: Reports no additional gastrointestinal complaints Genitourinary: Genitourinary: Reports no additional female genitourinary complaints Exam Narrative: WDWN in NAD, somewhat lethargic. skin no rash head ncat lungs clear but decreased breath sounds at the bases. cor reg no rub Or gallop abd BS+ nontender
[2022-02-20] MEDS: FLUTICASONE/UMECLIDIN/VILANTER 200-62.5-25 MCG ELLIPTA 1 PUFF INHALATION (08:44)
[2022-02-20] MEDS: FUROSEMIDE INJ 40 MG/4 ML VIAL 80 MG (08:53)
[2022-02-20] MEDS: TOLNAFTATE 1% POWDER 45 GM BTL 1 APPLIC TOPICAL ×2 (08:57→20:27)
[2022-02-20] MEDS: GABAPENTIN 300 MG CAPSULE 600 MG PO ×2 (09:02→17:19)
[2022-02-20] MEDS: HEPARIN SODIUM 5,000 UNITS/ML VIAL 5000 UNITS SUB-Q (09:02)
[2022-02-20] MEDS: CYANOCOBALAMIN 1,000 MCG TABLET 2000 MCG PO (09:02)
[2022-02-20] MEDS: PANTOPRAZOLE 40 MG TABLET PO (09:02)
[2022-02-20] MEDS: FERROUS SULFATE 324 MG TABLET PO ×2 (09:03→17:18)
[2022-02-20] MEDS: CLOPIDOGREL BISULFATE 75 MG TABLET PO (09:03)
[2022-02-20] MEDS: VERAPAMIL HCL 180 MG TABLET ER 360 MG PO (09:03)
[2022-02-20] MEDS: ASPIRIN 81 MG CHEWABLE TABLET PO (09:03)
[2022-02-20] MEDS: FLUTICASONE PROPIONATE 0.05% NA SPR 16 GM BTL (*BKC) 2 SPRAY NASAL (09:03)
[2022-02-20] MEDS: MONTELUKAST SODIUM 10 MG TABLET PO (09:03)
--- NOTE | 2022-02-20 09:07 | PC.NURSE ---
Since 0600, the patient has become more confused, hypertensive, wanting out of bed, disoriented to place and time. NSR 87, O2 Sat 95% on 4LNC, move all extremities well. Upon making bedside rounds at 0730 with Brianda ROJAS, found patient to be more obtunded, audible wheezes, B/P 214/60, unable to answer questions. Dr. Dumont was in the hospital and came to evaluate the patient, urgently. Dr. Kathleen also notified as well as Raquel Haider ICU storage battery charger. Multiple orders were initiated, see orders. CXR revealed pulmonary edema, Dr. Dumont notified. Any Olmstead RN, ICU director also here. AM labs show a WBC bump to 16.8, ABGs are within normal parameters, blood cultures ordered. Gwen (daughter) notified of changes. Patient moved to ICU 3 as IMU overflow for possible dialysis. At approx 0900, patient was moved to the ICU. Care of patient handed off to Breanne ROJAS.
[2022-02-20] MEDS: INSULIN ASPART (*BKC) 100 UNITS/ML SUB-Q ×3 (09:08→17:17)
[2022-02-20 09:09] LABS: Lactic Acid Reflex 0.7 mmol/L (0.7-2.0)
[2022-02-20 09:10] LABS: Estimated CRCL calculation 27 ml/min; Estimated Glomerular Filt Rate 20
[2022-02-20 09:26] LABS: Vancomycin Random < 5.0 ug/mL (10-20)
[2022-02-20 09:35] LABS: Procalcitonin 0.3 ng/mL
[2022-02-20 09:36] LABS: CRP 19.7 mg/dL (<1.0)
[2022-02-20] MEDS: ONDANSETRON INJ 4 MG/2 ML VIAL IV PUSH (09:38)
[2022-02-20] MEDS: ALBUTEROL SULFATE NEB 2.5 MG/3 ML INH INHALATION (10:35)
[2022-02-20] MEDS: IPRATROPIUM BR 0.02% INH SOLN 0.5 MG/2.5 ML VIAL INHALATION (10:35)
[2022-02-20 12:13] LABS: Glucose Point of Care 269 mg/dl (65-105)
--- NOTE | 2022-02-20 12:36 | PM.PNPUL ---
Progress Note: A&P Assessment and Plan (1) Acute hypoxemic respiratory failure: Code(s): J96.01 - Acute respiratory failure with hypoxia Status: Chronic Assessment and Plan: She has worsening hypoxemic respiratory failure, was on room air, now requiring more O2, 4 L/min, has increased patchy infiltrates vs pulmonary edema on chest CT, she was moved to ICU for closer support. She received Lasix today with 500 ml uop, and for this reason with improved diuresis, she is not going to get HD today. I agree with continuing antibiotics, bronchodilators, and BiPAP support if needed. (2) Asthma-COPD overlap syndrome: Code(s): J44.9 - Chronic obstructive pulmonary disease, unspecified Status: Acute Assessment and Plan: She has asthma diagnosed at age 16, 37 pack year history of tobacco use; CT angiogram of the chest on 02/11/2022 does not show any evidence of bullous emphysema. She is morbidly obese and she may have undiagnosed obstructive sleep apnea. She has intermittent wheezing throughout the hospitalization and is currently being treated for an asthma COPD exacerbation with? steroids started on 02/11/2022, weaned off, has wheezing today which may be from pulmonary edema. She is on albuterol 5 mg nebulized q.6 hours, ipratropium 0.5 mg nebulized Q 6 hours and Advair 45-21 at 2 puffs q.12 hours. As an outpatient she was uncontrolled on Step 2 therapy with daily rescue albuterol use. ? I will continue albuterol 2.5 mg nebulized q.6 hours, ipratropium 0.5 mg nebulized Q 6 hours? and nebulized budesonide 0.5 mg b.i.d.. ? If she is stable tomorrow off of the steroids I will? discontinue her nebulizers and change her to inhaled trelegy 200/62.5/25 at 1 puff Q day. Regarding her BiPAP use the patient feels that she can breathe without BiPAP tonight and I will discontinue the BiPAP.? I will place the patient on 2 L nasal cannula and perform an overnight oximetry. ? Of note she has no evidence of hypercarbic respiratory failure with her admission blood gas 7.28/41/40. 02/16 ? The patient wore 2 L nasal cannula last night and sled that she slept well.? She has dyspnea on exertion but no shortness of breath at rest.? ? She states her breathing is no different than yesterday. Her white blood cell count is 13.8.? Creatinine is 5.3.? She is on room air with saturations 98%.? Patient had an overnight oximetry on 2 L nasal cannula with the average saturation of 99%.? Lowest saturation was 95%.? Time with saturation less than or equal to 88% was 0 minutes.? She has no wheezing on exam. 02/17? patient was on room air overnight and slept well.? States that her breathing at rest is without issues she does have some dyspnea on exertion.? Currently she is on room air with saturations 95%.? Creatinine is 4.4, BUN is 138 and per the bedside nurse the plan is to initiate hemodialysis today.? Patient had an unsuccessful? overnight oximetry is no data was recorded. ? She has no wheezing on exam. Subjective Date/time seen: 02/20/22 12:36 Interval history: Hospital Day #11 Pulmonary signed off Feb 17, asked to see the patient again when she developed worsening acute hypoxemic respiratory failure. She was transferred to ICU 3 with decreasing mentation this morning. This 71 year old female has a history of asthma diagnosed at age 16 as well as a 37 pack year history of tobacco use.? Her CT angiogram of the chest on 02/11/2022 does not show any evidence of bullous emphysema.Alva has elevated BMI 52.9, may have undiagnosed obstructive sleep apnea. She had intermittent wheezing earlier tis admission, was being treated for an asthma COPD exacerbation with?IV steroids on 02/11 then switched to prednisone 40 mg p.o. q.day 02/13. She was better, these were stopped. She was on albuterol 5 mg nebulized q.6 hours, ipratropium 0.5 mg ne
[2022-02-20] MEDS: FUROSEMIDE INJ 100 MG/10 ML VIAL 80 MG IV PUSH (14:20)
[2022-02-20 16:48] LABS: Glucose Point of Care 314 mg/dl (65-105)
[2022-02-20] MEDS: HEPARIN SOD/D5W 100 UNITS/ML 25,000 UNITS/250 ML BAG 15 UNITS IV CONT (17:51)
[2022-02-20] MEDS: HEPARIN SODIUM 5,000 UNITS/ML VIAL 7000 UNITS IV PUSH (17:52)
[2022-02-20 20:11] LABS: Glucose Point of Care 337 mg/dl (65-105)
[2022-02-20] MEDS: ALPRAZolam (*CRX) 0.5 MG TABLET PO (20:26)
[2022-02-20] MEDS: GABAPENTIN 400 MG CAPSULE 800 MG PO (20:27)
[2022-02-20] MEDS: INSULIN GLARGINE (*BKC) 100 UNITS/ML 40 UNITS SUB-Q (21:09)
[2022-02-20 21:27] LABS: Vancomycin Random 10.6 ug/mL (10-20)
[2022-02-20 23:40] LABS: Partial Thromboplastin Time 96.4 SECONDS (22.3-36.8)
[2022-02-21] VITALS (37 sets, daily range): BP systolic 125–187; BP diastolic 58–101; PULSE 70–87; RESP 12–22; TEMP 35–37; O2SAT 91–100
[2022-02-21] MEDS: IPRATROPIUM BR 0.02% INH SOLN 0.5 MG/2.5 ML VIAL INHALATION (00:44)
[2022-02-21 01:26] LABS: INR 1.3
[2022-02-21] MEDS: ALPRAZolam (*CRX) 0.5 MG TABLET PO (02:13)
[2022-02-21 04:43] LABS: Basophils Percent Auto 0.2 % (0.2-1.2); Eosinophils Absolute Auto 0.4 K/mm3 (0-0.3); Eosinophils Percent Auto 2.2 % (0-4.4); Hemoglobin 7.4 g/dL (12.0-15.0); Immature Granulocyte Absolute 0.17 K/mm3 (0.00-0.031); Immature Granulocyte Percent A 1.1 % (0-0.5); Lymphocytes Absolute Auto 1.47 K/mm3 (0.9-3.2); Lymphocytes Percent Auto 9.1 % (18.3-44.2); Mean Corpuscular HGB Conc 30.8 g/dl (32-36); Mean Corpuscular Hemoglobin 26.8 pg (26-34); Mean Platelet Volume 10.4 fl (7.4-10.4); Monocytes Absolute Auto 2.1 K/mm3 (0.1-0.6); Monocytes Percent Auto 13.3 % (2.6-8.5); Neutrophils Absolute Auto 11.9 K/mm3 (1.3-6.7); Neutrophils Percent Auto 74.1 % (45.5-73.1); Platelet Count Result 272 k/mm3 (150-375); Red Blood Count 2.76 M/mm3 (4.2-5.4); Red Cell Distribution Width 16.7 % (11.5-14.5); White Blood Count 16.1 K/mm3 (4.5-10.0)
[2022-02-21 04:55] LABS: Partial Thromboplastin Time 73.4 SECONDS (22.3-36.8)
[2022-02-21 04:56] LABS: Albumin Level 3.3 g/dL (3.5-5.1); Anion Gap 6 mmol/L (8-16); Blood Urea Nitrogen 57 mg/dL (7-17); Calcium 8.1 mg/dL (8.4-10.2); Carbon Dioxide 29 mmol/L (22-30); Chloride 95 mmol/L (98-107); Estimated CRCL calculation 25 ml/min; Estimated Glomerular Filt Rate 18; Glucose 217 mg/dL (65-110); Phosphorus 3.6 mg/dL (2.5-4.5); Potassium 4.1 mmol/L (3.4-5.0); Sodium 130 mmol/L (137-145)
[2022-02-21] MEDS: BUMETANIDE INJ 1 MG/4 ML VIAL IV PUSH (05:30)
[2022-02-21] MEDS: LEVOTHYROXINE SODIUM 100 MCG TABLET 200 MCG PO (05:31)
[2022-02-21] MEDS: hydrALAZINE HCL 20 MG/ML VIAL 10 MG IV PUSH (06:23)
[2022-02-21 07:15] LABS: Glucose Point of Care 235 mg/dl (65-105)
--- NOTE | 2022-02-21 08:55 | PM.IMPN ---
Progress Note: A&P Assessment and Plan (1) Acute hypoxemic respiratory failure: Code(s): J96.01 - Acute respiratory failure with hypoxia Status: Chronic Assessment and Plan: Acute multifactorial hypoxic Respiratory failure secondary to pulmonary edema from volume overload from renal failure and CHF, baseline COPD asthma overlap syndrome, obesity hypoventilation syndrome, RAINA, ? PE, ? Pneumonia Patient appears to be in respiratory distress with increased work of breathing. She is hypoxic on 6 L nasal cannula. Rapid shallow breathing, use of accessory muscles and tachypnea on exam Have placed patient on BiPAP 04/11 and she appears much more comfortable now. Continue BiPAP for now Discussed with nephrology and will plan for hemodialysis today Continue heparin infusion for DVT. CTA to rule out PE precluded by her renal failure and also it will not change management specialist at this point. Echocardiogram does not show any RV dilation or systolic dysfunction She is on steroids and bronchodilators which will be continued She is on broad-spectrum antibiotics in the form of vancomycin and imipenem although clinical picture is less supportive of pneumonia. A procalcitonin level was low at 0.3 She may need intubation and invasive mechanical ventilation if she further deteriorates. Continue to monitor closely Chest x-ray reviewed (2) Acute on chronic diastolic heart failure: Code(s): I50.33 - Acute on chronic diastolic (congestive) heart failure Status: Acute Assessment and Plan: Echocardiogram 02/11 Summary ? 1. Complete two-dimensional, color flow and Doppler transthoracic echocardiogram is performed. ? 2. Left ventricular chamber dimension is normal. ? 3. Left ventricular systolic function is normal, estimated at 60-65%. ? 4. The left ventricular diastolic function is abnormal. ? 5. E/e' 18 is elevated. ? 6. Left atrial chamber dimension is moderately enlarged. ? 7. There is mild aortic valve sclerosis. ? 8. The mitral valve has mildly thickened leaflets and moderately calcified annulus. ? 9. There is mild mitral valve regurgitation. ? 10. There is trace tricuspid valve regurgitation. Continue hemodialysis to remove fluid She is on aspirin Plavix ARB and calcium channel mike (3) Hypertension: Code(s): I10 - Essential (primary) hypertension Status: Chronic Assessment and Plan: Blood pressure is elevated and it could be secondary to respiratory distress Continue home ARB and calcium channel mike Patient has been placed on BiPAP and hopefully blood pressure will improve respiratory distress improves She is also going to receive hemodialysis Continue p.r.n. hydralazine (4) Asthma-COPD overlap syndrome: Code(s): J44.9 - Chronic obstructive pulmonary disease, unspecified Status: Acute Assessment and Plan: Patient has history of smoking and was diagnosed with asthma in the past Patient evaluated by Pulmonary She is on bronchodilators and fluticasone (5) Sepsis: Code(s): A41.9 - Sepsis, unspecified organism Status: Acute Assessment and Plan: Secondary to UTI and possible pneumonia Cultures have been sent and pending Urine cultures growing Gram-negative rods Patient is on vancomycin and imipenem Blood pressure is elevated (6) MARINA (acute kidney injury): Code(s): N17.9 - Acute kidney failure, unspecified Status: Acute Assessment and Plan: Patient has acute kidney injury over chronic kidney disease which is multifactorial Patient is being followed by Nephrology and has been started on dialysis I have spoken to Dr. Dumont patient appears to be volume overloaded He is scheduling repeat hemodialysis session for today Patient is on diuretics and does produce urine but not adequate enough Electrolytes and creatinine are acceptable Monitor (7) Stage 3b chronic kidney disease: Code(s): N18.32 - Chronic kidney disease, stage 3b Status: A
--- NOTE | 2022-02-21 09:08 | P.PNNP_ITS ---
Progress Note: A&P Assessment and Plan (1) MARINA (acute kidney injury): Code(s): N17.9 - Acute kidney failure, unspecified Status: Acute Assessment and Plan: * multifactorial etiology: * contrast exposure (CT scan PE protocol) * prerenal factors (as noted by urine electrolytes) * necessity of IV diuretics * fluctuating hemodynamics/blood pressure * Renal ultrasound is normal * urine electrolytes on the 10th were pre renal. Will repeat these today. * Urine output was good over the weekend, however urine output has dropped off significantly. In spite of diuretics yesterday she made only 1500cc of urine yesterday and only 500 overnight. She received Bumex this morning and did not make much urine. * I think she needs fluid off. Her electrolytes are fine and her creatinine is only mildly elevated over yesterday's value so will do dry ultrafiltration as fluid removal is are main goal. (2) Stage 3b chronic kidney disease: Code(s): N18.32 - Chronic kidney disease, stage 3b Status: Acute Assessment and Plan: * baseline creatinine runs ~ 1.5 - 1.6mg/dl (at best) but has been as high as 2.1mg/dl * likely due to CAD/CHF, vascular disease, diabetes, and age-related change * The drop in urine output, acute kidney injury is reintroduced. (3) Acute hypoxemic respiratory failure: Code(s): J96.01 - Acute respiratory failure with hypoxia Status: Chronic Assessment and Plan: * relatively stable if not improving * multiple issues: * acute on chronic CHF/pulmonary edema * COPD * RAINA * uncontrolled HTN * She is getting supportive care including a BiPAP mask. (4) Acute on chronic diastolic heart failure: Code(s): I50.33 - Acute on chronic diastolic (congestive) heart failure Status: Acute Assessment and Plan: * Chest x-ray today showed pulmonary edema. Will give diuretics. (5) Hypertension: Code(s): I10 - Essential (primary) hypertension Status: Chronic Assessment and Plan: * Blood pressure is a bit high today. Systolic running between 150 and 170. * Fluid removal should help. * She is on verapamil. She also has an order for Hydralazine. * If the blood pressure still high with fluid removed, we can add more medicine. (6) Anemia: Code(s): D64.9 - Anemia, unspecified Status: Acute Assessment and Plan: * likely due to MARINA, CKD, and acute illness * Hemoglobin is 8 today. Re-dose EPO once blood pressure is better. * will get iron and vitamin Tests. (7) Type 2 diabetes mellitus with hyperglycemia: Code(s): E11.65 - Type 2 diabetes mellitus with hyperglycemia Status: Chronic Assessment and Plan: * On Accu-Cheks and sliding-scale insulin per hospitalist. * will reduce gabapentin dose because of the renal failure. (8) Sepsis: Code(s): A41.9 - Sepsis, unspecified organism Status: Acute Assessment and Plan: the patient looks septic. She is more lethargic, white count is elevated. Urine shows white cells. Blood cultures and urine cultures are pending. She is on imipenem plus vancomycin. Discussed with Dr. Casillas Subjective Date/time seen: 02/21/22 09:08 Interval history: Gregoria is on a BiPAP mask. She is lethargic. Blood pressure is high. urine output has dropped off. Exam Narrative: WDWN in NAD, somewhat lethargic. skin no rash or subcu nodules head ncat
--- NOTE | 2022-02-21 09:08 | PM.PNNEP ---
Progress Note: A&P Assessment and Plan (1) MARINA (acute kidney injury): Code(s): N17.9 - Acute kidney failure, unspecified Status: Acute Assessment and Plan: multifactorial etiology: contrast exposure (CT scan PE protocol) prerenal factors (as noted by urine electrolytes) necessity of IV diuretics fluctuating hemodynamics/blood pressure Renal ultrasound is normal urine electrolytes on the 10th were pre renal. Will repeat these today. Urine output was good over the weekend, however urine output has dropped off significantly. In spite of diuretics yesterday she made only 1500cc of urine yesterday and only 500 overnight. She received Bumex this morning and did not make much urine. I think she needs fluid off. Her electrolytes are fine and her creatinine is only mildly elevated over yesterday's value so will do dry ultrafiltration as fluid removal is are main goal. (2) Stage 3b chronic kidney disease: Code(s): N18.32 - Chronic kidney disease, stage 3b Status: Acute Assessment and Plan: baseline creatinine runs ~ 1.5 - 1.6mg/dl (at best) but has been as high as 2.1mg/dl likely due to CAD/CHF, vascular disease, diabetes, and age-related change The drop in urine output, acute kidney injury is reintroduced. (3) Acute hypoxemic respiratory failure: Code(s): J96.01 - Acute respiratory failure with hypoxia Status: Chronic Assessment and Plan: relatively stable if not improving multiple issues: acute on chronic CHF/pulmonary edema COPD RAINA uncontrolled HTN She is getting supportive care including a BiPAP mask. (4) Acute on chronic diastolic heart failure: Code(s): I50.33 - Acute on chronic diastolic (congestive) heart failure Status: Acute Assessment and Plan: Chest x-ray today showed pulmonary edema. Will give diuretics. (5) Hypertension: Code(s): I10 - Essential (primary) hypertension Status: Chronic Assessment and Plan: Blood pressure is a bit high today. Systolic running between 150 and 170. Fluid removal should help. She is on verapamil. She also has an order for Hydralazine. If the blood pressure still high with fluid removed, we can add more medicine. (6) Anemia: Code(s): D64.9 - Anemia, unspecified Status: Acute Assessment and Plan: likely due to MARINA, CKD, and acute illness Hemoglobin is 8 today. Re-dose EPO once blood pressure is better. will get iron and vitamin Tests. (7) Type 2 diabetes mellitus with hyperglycemia: Code(s): E11.65 - Type 2 diabetes mellitus with hyperglycemia Status: Chronic Assessment and Plan: On Accu-Cheks and sliding-scale insulin per hospitalist. will reduce gabapentin dose because of the renal failure. (8) Sepsis: Code(s): A41.9 - Sepsis, unspecified organism Status: Acute Assessment and Plan: the patient looks septic. She is more lethargic, white count is elevated. Urine shows white cells. Blood cultures and urine cultures are pending. She is on imipenem plus vancomycin. Discussed with Dr. Casillas Subjective Date/time seen: 02/21/22 09:08 Interval history: Gregoria is on a BiPAP mask. She is lethargic. Blood pressure is high. urine output has dropped off. Exam Narrative: WDWN in NAD, somewhat lethargic. skin no rash or subcu nodules head ncat lungs clear but decreased breath sounds at the bases. cor reg no rub Or gallop abd BS+ nontender and soft ext 1+ bilateral edema. Objective Data Vital Signs Vital Signs: Vital Signs - 24 hr 02/20/22 09:13 02/20/22 09:59 02/20/22 10:39 Temperature Pulse Rate 88 84 80 Respiratory Rate 16 15 Blood Pressure Pulse Oximetry 97 Oxygen Delivery Nasal Cannula Oxygen Flow Rate 4 Fraction of Inspired Oxygen 02/20/22 10:55 02/20/22 11:40 02/20/22 12:00 [place]
[2022-02-21] MEDS: HEPARIN SOD/D5W 100 UNITS/ML 25,000 UNITS/250 ML BAG 15 UNITS IV CONT (09:58)
[2022-02-21] MEDS: SODIUM CHLORIDE 0.9% IV 1,000 ML 999 ML IV CONT (10:19)
[2022-02-21] MEDS: EPOETIN ALFA-EPBX 10,000 UNITS/ML VIAL 10000 UNITS IV PUSH (10:19)
[2022-02-21 12:41] LABS: Glucose Point of Care 161 mg/dl (65-105)
[2022-02-21] MEDS: CYANOCOBALAMIN 1,000 MCG TABLET 2000 MCG PO (12:43)
[2022-02-21] MEDS: ASPIRIN 81 MG CHEWABLE TABLET PO (12:43)
[2022-02-21] MEDS: CLOPIDOGREL BISULFATE 75 MG TABLET PO (12:43)
[2022-02-21] MEDS: PANTOPRAZOLE 40 MG TABLET PO (12:43)
[2022-02-21] MEDS: VERAPAMIL HCL 180 MG TABLET ER 360 MG PO (12:43)
[2022-02-21] MEDS: TOLNAFTATE 1% POWDER 45 GM BTL 1 APPLIC TOPICAL ×2 (12:44→20:39)
[2022-02-21] MEDS: FLUTICASONE PROPIONATE 0.05% NA SPR 16 GM BTL (*BKC) 2 SPRAY NASAL (12:44)
[2022-02-21] MEDS: MONTELUKAST SODIUM 10 MG TABLET PO (12:44)
[2022-02-21 12:53] LABS: Add Urine Microscopic? YES; Appearance Urine Cloudy (Clear); Bacteria Urine 1+ /hpf; Bilirubin Urine Negative (Negative); Blood Urine 2+ (Negative); Budding Yeast Urine Present /hpf; Color Urine Yellow (Yellow); Glucose Urine UA 1+ mg/dL (Negative); Ketones Urine Negative (Negative); Leukocyte Esterase Ur 3+ LEU/UL (NEGATIVE); Mucus Urine Rare /lpf; Nitrate Urine Negative (Negative); Protein Urine 2+ mg/dL (Negative); RBC Urine 51-75 /hpf (0-2); Specific Grav Ur 1.014 (1.001-1.035); Transitional Epi Cells Urine Occasional /hpf (None Seen); Urobilinogen Urine Negative mg/dL (<2.0); WBC Clumps Urine Present /HPF; WBC Urine 51-75 /hpf (0-3)
[2022-02-21] MEDS: FLUTICASONE/UMECLIDIN/VILANTER 200-62.5-25 MCG ELLIPTA 1 PUFF INHALATION (12:54)
[2022-02-21 13:22] LABS: Creatinine Urine 145.4 mg/dL; Total Protein Urine Random 90 mg/dL; Ur Ttl Prot Creatinine Ratio 0.62 mg/mg (0-0.20); Urea Random Urine 440 MG/DL
[2022-02-21 13:33] LABS: Sodium Urine Random 7 meq/L
[2022-02-21] MEDS: ALBUTEROL SULFATE NEB 2.5 MG/3 ML INH INHALATION (13:47)
[2022-02-21] MEDS: CENTRAL LINE FLUSH 10 ML IV PUSH ×3 (14:57→20:39)
[2022-02-21 16:50] LABS: Glucose Point of Care 223 mg/dl (65-105)
[2022-02-21] MEDS: GABAPENTIN 300 MG CAPSULE PO (18:45)
[2022-02-21 18:48] LABS: Glucose Point of Care 192 mg/dl (65-105)
[2022-02-21 18:57] LABS: Vancomycin Random 13.6 ug/mL (10-20)
[2022-02-21 20:25] LABS: Glucose Point of Care 188 mg/dl (65-105)
[2022-02-21] MEDS: INSULIN GLARGINE (*BKC) 100 UNITS/ML 40 UNITS SUB-Q (20:38)
[2022-02-22] VITALS (33 sets, daily range): BP systolic 112–177; BP diastolic 44–105; PULSE 71–98; RESP 12–20; TEMP 36.5–37.3; O2SAT 92–100
[2022-02-22] MEDS: HEPARIN SOD/D5W 100 UNITS/ML 25,000 UNITS/250 ML BAG 15 UNITS IV CONT (03:36)
[2022-02-22 05:03] LABS: Hematocrit 21.9 % (37.0-47.0); Mean Corpuscular HGB Conc 31.1 g/dl (32-36); Mean Corpuscular Hemoglobin 26.9 pg (26-34); Mean Corpuscular Volume 86.6 fl (80-100); Mean Platelet Volume 9.9 fl (7.4-10.4); Platelet Count Result 244 k/mm3 (150-375); Red Blood Count 2.53 M/mm3 (4.2-5.4); Red Cell Distribution Width 16.4 % (11.5-14.5); White Blood Count 13.6 K/mm3 (4.5-10.0)
[2022-02-22 05:11] LABS: Hemoglobin 6.8 g/dL (12.0-15.0)
[2022-02-22 05:15] LABS: Alanine Aminotransferase 18 U/L (6-35); Alkaline Phosphatase 72 U/L (38-126); Anion Gap 7 mmol/L (8-16); Aspartate Amino Transferase 21 U/L (14-36); Bilirubin,Total 0.4 mg/dL (0.2-1.3); Blood Urea Nitrogen 59 mg/dL (7-17); Carbon Dioxide 31 mmol/L (22-30); Chloride 93 mmol/L (98-107); Estimated CRCL calculation 26 ml/min; Estimated Glomerular Filt Rate 19; Glucose 192 mg/dL (65-110); Magnesium 1.7 mg/dL (1.6-2.3); Phosphorus 3.8 mg/dL (2.5-4.5); Potassium 3.8 mmol/L (3.4-5.0); Sodium 131 mmol/L (137-145)
[2022-02-22 05:32] LABS: Partial Thromboplastin Time 67.1 SECONDS (22.3-36.8)
[2022-02-22] MEDS: HEPARIN SODIUM 5,000 UNITS/ML VIAL 3500 UNITS IV PUSH ×2 (05:50→12:33)
[2022-02-22] MEDS: CENTRAL LINE FLUSH 10 ML IV PUSH ×4 (05:50→21:19)
[2022-02-22] MEDS: LEVOTHYROXINE SODIUM 100 MCG TABLET 200 MCG PO (05:51)
[2022-02-22] MEDS: SODIUM CHLORIDE 0.9% IV 250 ML 30 ML IV CONT (07:40)
[2022-02-22 07:46] LABS: Glucose Point of Care 168 mg/dl (65-105)
[2022-02-22] MEDS: CLOPIDOGREL BISULFATE 75 MG TABLET PO (08:55)
[2022-02-22] MEDS: GABAPENTIN 300 MG CAPSULE PO ×2 (08:55→18:22)
[2022-02-22] MEDS: PANTOPRAZOLE 40 MG TABLET PO (08:55)
[2022-02-22] MEDS: ASPIRIN 81 MG CHEWABLE TABLET PO (08:55)
[2022-02-22] MEDS: MONTELUKAST SODIUM 10 MG TABLET PO (08:55)
[2022-02-22] MEDS: TOLNAFTATE 1% POWDER 45 GM BTL 1 APPLIC TOPICAL ×2 (08:56→21:19)
[2022-02-22] MEDS: FLUTICASONE PROPIONATE 0.05% NA SPR 16 GM BTL (*BKC) 2 SPRAY NASAL (08:56)
[2022-02-22] MEDS: CYANOCOBALAMIN 1,000 MCG TABLET 2000 MCG PO (08:56)
[2022-02-22] MEDS: VERAPAMIL HCL 180 MG TABLET ER 360 MG PO (08:56)
[2022-02-22] MEDS: FLUTICASONE/UMECLIDIN/VILANTER 200-62.5-25 MCG ELLIPTA 1 PUFF INHALATION (09:12)
[2022-02-22] MEDS: BUMETANIDE INJ 1 MG/4 ML VIAL 2 MG IV PUSH (10:13)
[2022-02-22 11:40] LABS: Glucose Point of Care 206 mg/dl (65-105)
[2022-02-22] MEDS: INSULIN ASPART (*BKC) 100 UNITS/ML SUB-Q ×2 (11:54→18:23)
[2022-02-22 12:21] LABS: Partial Thromboplastin Time 69.8 SECONDS (22.3-36.8)
--- NOTE | 2022-02-22 14:41 | PM.PNNEP ---
Progress Note: A&P Assessment and Plan (1) MARINA (acute kidney injury): Code(s): N17.9 - Acute kidney failure, unspecified Status: Acute Assessment and Plan: the patient has acute kidney injury. This was improving but then became septic so worsened again. She is making some urine but not a lot. Creatinine has been rising in the last couple of days. Will do another dry ultrafiltration today. (2) Stage 3b chronic kidney disease: Code(s): N18.32 - Chronic kidney disease, stage 3b Status: Acute Assessment and Plan: The patient has a baseline creatinine of 1.6-2.0. This is most likely due to hypertension and diabetes. (3) Acute hypoxemic respiratory failure: Code(s): J96.01 - Acute respiratory failure with hypoxia Status: Chronic Assessment and Plan: The patient seems better now. She is on nasal cannula only. (4) Acute on chronic diastolic heart failure: Code(s): I50.33 - Acute on chronic diastolic (congestive) heart failure Status: Acute Assessment and Plan: Chest x-ray still shows pulmonary edema. Will try diuretics. (5) Hypertension: Code(s): I10 - Essential (primary) hypertension Status: Chronic Assessment and Plan: Blood pressure is still a bit high. She does have fluid overload so will take fluid off today and see how her blood pressure is afterwards. (6) Anemia: Code(s): D64.9 - Anemia, unspecified Status: Acute Assessment and Plan: Hemoglobin is low. She is getting Epogen today. (7) Type 2 diabetes mellitus with hyperglycemia: Code(s): E11.65 - Type 2 diabetes mellitus with hyperglycemia Status: Chronic (8) Sepsis: Code(s): A41.9 - Sepsis, unspecified organism Status: Acute Subjective Date/time seen: 02/22/22 08:00 Interval history: Gregoria is looking much better. She is awake and oriented. We discussed the case. She has no shortness of breath or chest pain Review of Systems Cardiovascular: Cardiovascular: Reports no additional cardiovascular complaints Respiratory: Respiratory: Reports no additional respiratory complaints Gastrointestinal: Gastrointestinal: Reports no additional gastrointestinal complaints Genitourinary: Genitourinary: Reports no additional female genitourinary complaints Exam Narrative: WDWN in NAD skin no rash head ncat lungs clear cor reg no rub abd BS+ nontender and soft ext no edema. Objective Data Vital Signs Vital Signs: Vital Signs - 24 hr 02/21/22 16:30 02/21/22 16:00 02/21/22 16:00 Temperature Pulse Rate 70 71 Respiratory Rate 13 Blood Pressure Pulse Oximetry 100 96 Oxygen Delivery BiPAP BiPAP Oxygen Flow Rate Fraction of Inspired Oxygen 50 02/21/22 16:00 02/21/22 18:00 02/21/22 19:56 Temperature 36.6 C Pulse Rate 72 72 Respiratory Rate 12 Blood Pressure 148/62 H Pulse Oximetry 100 94 Oxygen Delivery Nasal Cannula Oxygen Flow Rate 4 Fraction of Inspired Oxygen 02/21/22 20:00 02/21/22 20:30 02/21/22 20:00 Temperature 36.5 C Pulse Rate 84 84 75 Respiratory Rate 17 17 Blood Pressure 137/63 Pulse Oximetry 97 97 Oxygen Delivery Nasal Cannula Oxygen Flow Rate 5 Fraction of Inspired Oxygen 50 02/21/22 22:00 02/22/22 00:00 02/22/22 00:00 Temperature 36.6 C Pulse Rate 83 81 81 Respiratory Rate 13 13 Blood Pressure 148/52 H Pulse Oximetry 95 95 Oxygen Delivery Nasal Cannula Oxygen Flow Rate 5 Fraction of Inspired Oxygen 50 02/22/22 00:00 02/22/22 02:00 02/22/22 01:50 Temperature Pulse Rate 80 71 72 Respiratory Rate 16 Blood Pressure Pulse Oximetry 100 Oxygen Delivery BiPAP Oxygen Flow Rate Fraction of Inspired Oxygen 02/22/22 04:35 02/22/22 04:00 02/22/22 04:00 Temperature Pulse Rate 73 72 73 Respiratory Rate 15 15 Blood Pressure Pulse Oximetry 100 100 Oxyg
--- NOTE | 2022-02-22 15:48 | PM.IMPN ---
Progress Note: A&P Assessment and Plan (1) Acute hypoxemic respiratory failure: Code(s): J96.01 - Acute respiratory failure with hypoxia Status: Chronic Assessment and Plan: Acute multifactorial hypoxic Respiratory failure secondary to pulmonary edema from volume overload from renal failure and CHF, baseline COPD asthma overlap syndrome, obesity hypoventilation syndrome, RAINA, ? PE, ? Pneumonia oxygen supplementation via nasal cannula. Also placed on BiPAP intermittently for respiratory support. On hemodialysis for hypervolemia And worsened renal failure. Continue heparin infusion for DVT. CTA to rule out PE precluded by her renal failure and also it will not pattern changer at this point. Echocardiogram does not show any RV dilation or systolic dysfunction She is on steroids and bronchodilators which will be continued She is on broad-spectrum antibiotics in the form of vancomycin and imipenem although clinical picture is less supportive of pneumonia. A procalcitonin level was low at 0.3 (2) Acute on chronic diastolic heart failure: Code(s): I50.33 - Acute on chronic diastolic (congestive) heart failure Status: Acute Assessment and Plan: Echocardiogram 02/11 Summary ? 1. Complete two-dimensional, color flow and Doppler transthoracic echocardiogram is performed. ? 2. Left ventricular chamber dimension is normal. ? 3. Left ventricular systolic function is normal, estimated at 60-65%. ? 4. The left ventricular diastolic function is abnormal. ? 5. E/e' 18 is elevated. ? 6. Left atrial chamber dimension is moderately enlarged. ? 7. There is mild aortic valve sclerosis. ? 8. The mitral valve has mildly thickened leaflets and moderately calcified annulus. ? 9. There is mild mitral valve regurgitation. ? 10. There is trace tricuspid valve regurgitation. Continue hemodialysis to remove fluid She is on aspirin Plavix ARB and calcium channel mike (3) Hypertension: Code(s): I10 - Essential (primary) hypertension Status: Chronic Assessment and Plan: Blood pressure is elevated and it could be secondary to respiratory distress Continue home ARB and calcium channel mike Patient has been placed on BiPAP and hopefully blood pressure will improve respiratory distress improves On p.r.n. hydralazine (4) Asthma-COPD overlap syndrome: Code(s): J44.9 - Chronic obstructive pulmonary disease, unspecified Status: Acute Assessment and Plan: Patient has history of smoking and was diagnosed with asthma in the past Patient evaluated by Pulmonary She is on bronchodilators and fluticasone (5) Sepsis: Code(s): A41.9 - Sepsis, unspecified organism Status: Acute Assessment and Plan: Secondary to UTI and possible pneumonia Cultures have been sent and pending Urine cultures growing Gram-negative rods Patient is on vancomycin and imipenem Blood pressure is elevated (6) MARINA (acute kidney injury): Code(s): N17.9 - Acute kidney failure, unspecified Status: Acute Assessment and Plan: Patient has acute kidney injury over chronic kidney disease which is multifactorial Patient is being followed by Nephrology and has been started on dialysis 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 Monitor Transfuse if less than 7 (9) Hypothyroid: Code(s): E03.9 - Hypothyroidism, unspecified Status: Acute Assessment and Plan: Continue levothyroxine (10) DVT (deep venous thrombosis): Code(s): I82.409 - Acute embolism and thrombosis of unspecified deep veins of unspecified lower extremity Status: Acute Assessment and Plan: Patient has edema in both legs. Lower extremity venous Doppler
[2022-02-22 16:41] LABS: Glucose Point of Care 297 mg/dl (65-105)
[2022-02-22] MEDS: SODIUM CHLORIDE 0.9% IV 1,000 ML 999 ML IV CONT (16:45)
[2022-02-22] MEDS: EPOETIN ALFA-EPBX 10,000 UNITS/ML VIAL 10000 UNITS SUB-Q (16:45)
[2022-02-22 17:37] LABS: Partial Thromboplastin Time 95.9 SECONDS (22.3-36.8)
[2022-02-22 18:20] LABS: Glucose Point of Care 306 mg/dl (65-105)
[2022-02-22] MEDS: HEPARIN SOD/D5W 100 UNITS/ML 25,000 UNITS/250 ML BAG 19 UNITS IV CONT (18:23)
[2022-02-22] MEDS: INSULIN ASPART (*BKC) 100 UNITS/ML 6 UNITS SUB-Q (21:19)
[2022-02-22] MEDS: INSULIN GLARGINE (*BKC) 100 UNITS/ML 40 UNITS SUB-Q (21:19)
[2022-02-22 23:32] LABS: Partial Thromboplastin Time 114.9 SECONDS (22.3-36.8)
[2022-02-22 23:37] LABS: Glucose Point of Care 345 mg/dl (65-105)
[2022-02-23] VITALS (19 sets, daily range): BP systolic 138–166; BP diastolic 49–84; PULSE 76–88; RESP 15–19; TEMP 36.4–37.6; O2SAT 93–97
[2022-02-23] MEDS: LEVOTHYROXINE SODIUM 100 MCG TABLET 200 MCG PO (05:39)
[2022-02-23] MEDS: CENTRAL LINE FLUSH 10 ML IV PUSH ×4 (05:40→21:10)
[2022-02-23 05:51] LABS: Hematocrit 25.2 % (37.0-47.0); Hemoglobin 7.9 g/dL (12.0-15.0); Mean Corpuscular HGB Conc 31.3 g/dl (32-36); Mean Corpuscular Hemoglobin 27.3 pg (26-34); Mean Corpuscular Volume 87.2 fl (80-100); Mean Platelet Volume 10.1 fl (7.4-10.4); Platelet Count Result 274 k/mm3 (150-375); Red Blood Count 2.89 M/mm3 (4.2-5.4); Red Cell Distribution Width 16.2 % (11.5-14.5)
[2022-02-23 06:03] LABS: Partial Thromboplastin Time 77.9 SECONDS (22.3-36.8)
[2022-02-23 06:16] LABS: Alanine Aminotransferase 16 U/L (6-35); Albumin Level 3.2 g/dL (3.5-5.1); Alkaline Phosphatase 77 U/L (38-126); Anion Gap 10 mmol/L (8-16); Aspartate Amino Transferase 18 U/L (14-36); Bilirubin,Total 0.5 mg/dL (0.2-1.3); Blood Urea Nitrogen 63 mg/dL (7-17); Calcium 8.2 mg/dL (8.4-10.2); Carbon Dioxide 28 mmol/L (22-30); Chloride 94 mmol/L (98-107); Estimated CRCL calculation 27 ml/min; Estimated Glomerular Filt Rate 20; Glucose 248 mg/dL (65-110); Magnesium 1.6 mg/dL (1.6-2.3); Potassium 4.1 mmol/L (3.4-5.0); Sodium 132 mmol/L (137-145)
--- NOTE | 2022-02-23 07:26 | PM.PNNEP ---
Progress Note: A&P Assessment and Plan (1) MARINA (acute kidney injury): Code(s): N17.9 - Acute kidney failure, unspecified Status: Acute Assessment and Plan: the patient has acute kidney injury. This was improving but then became septic so worsened again. she seems to be making more urine. Her creatinine is stable. She is breathing comfortably. Will hold off on dialysis today and try diuretics. (2) Stage 3b chronic kidney disease: Code(s): N18.32 - Chronic kidney disease, stage 3b Status: Acute Assessment and Plan: The patient has a baseline creatinine of 1.6-2.0. This is most likely due to hypertension and diabetes. (3) Acute hypoxemic respiratory failure: Code(s): J96.01 - Acute respiratory failure with hypoxia Status: Chronic Assessment and Plan: The patient seems better now. She is on nasal cannula only. (4) Acute on chronic diastolic heart failure: Code(s): I50.33 - Acute on chronic diastolic (congestive) heart failure Status: Acute Assessment and Plan: Try another round of diuretics (5) Hypertension: Code(s): I10 - Essential (primary) hypertension Status: Chronic Assessment and Plan: blood pressure is doing better (6) Anemia: Code(s): D64.9 - Anemia, unspecified Status: Acute Assessment and Plan: Hemoglobin is low. She is getting Epogen today. (7) Type 2 diabetes mellitus with hyperglycemia: Code(s): E11.65 - Type 2 diabetes mellitus with hyperglycemia Status: Chronic (8) Sepsis: Code(s): A41.9 - Sepsis, unspecified organism Status: Acute Subjective Date/time seen: 02/23/22 07:26 Interval history: Gregoria is looking about the same today no sob. No chest pain she is eager to get out of bed Exam Narrative: WDWN in NAD skin no rash head ncat lungs clear bilaterally cor reg no rub or gallop abd BS+ nontender and soft ext no edema. Objective Data Vital Signs Vital Signs: Vital Signs - 24 hr 02/22/22 07:33 02/22/22 07:45 02/22/22 07:50 Temperature 37.1 C 36.9 C Pulse Rate 77 77 Respiratory Rate 17 15 Blood Pressure 165/69 H 173/61 H Pulse Oximetry 98 98 98 Oxygen Delivery Nasal Cannula Oxygen Flow Rate 5 Fraction of Inspired Oxygen 02/22/22 08:49 02/22/22 09:12 02/22/22 08:00 Temperature 36.9 C Pulse Rate 76 76 Respiratory Rate 16 Blood Pressure 177/56 H Pulse Oximetry 99 99 Oxygen Delivery Nasal Cannula Oxygen Flow Rate 5 Fraction of Inspired Oxygen 02/22/22 09:29 02/22/22 08:00 02/22/22 09:34 Temperature 36.9 C Pulse Rate 82 98 Respiratory Rate 14 Blood Pressure 112/74 Pulse Oximetry 96 95 Oxygen Delivery Nasal Cannula Oxygen Flow Rate 3 Fraction of Inspired Oxygen 02/22/22 08:52 02/22/22 11:20 02/22/22 12:00 Temperature 36.6 C 37.3 C Pulse Rate 80 87 Respiratory Rate 18 16 Blood Pressure 148/65 H 147/66 H Pulse Oximetry 94 98 94 Oxygen Delivery Nasal Cannula Oxygen Flow Rate 5 Fraction of Inspired Oxygen 02/22/22 14:00 02/22/22 12:00 02/22/22 14:00 Temperature 36.9 C Pulse Rate 86 86 85 Respiratory Rate 20 Blood Pressure 153/58 H Pulse Oximetry 92 Oxygen Delivery Oxygen Flow Rate Fraction of Inspired Oxygen 02/22/22 14:00 02/22/22 14:15 02/22/22 14:30 Temperature Pulse Rate 86 86 Respiratory Rate Blood Pressure 136/105 H 148/68 H Pulse Oximetry Oxygen Delivery Oxygen Flow Rate 4 Fraction of Inspired Oxygen 02/22/22 14:45 02/22/22 15:00 02/22/22 15:15 Temperature Pulse Rate 86 84 85 Respiratory Rate Blood Pressure 158/86 H 153/61 H 142/78 H Pulse Oximetry Oxygen Delivery Oxygen Flow Rate Fraction of Inspired Oxygen 02/22/22 15:30 02/22/22 15:46 02/22/22 15:45 Temperature Pulse Rate 87 88 Respiratory Rate Blood Pressure 148/88 H 13
[2022-02-23] MEDS: HEPARIN SOD/D5W 100 UNITS/ML 25,000 UNITS/250 ML BAG 17 UNITS IV CONT ×2 (07:28→22:32)
[2022-02-23] MEDS: FLUTICASONE/UMECLIDIN/VILANTER 200-62.5-25 MCG ELLIPTA 1 PUFF INHALATION (08:37)
[2022-02-23] MEDS: FLUTICASONE PROPIONATE 0.05% NA SPR 16 GM BTL (*BKC) 2 SPRAY NASAL (08:45)
[2022-02-23] MEDS: TOLNAFTATE 1% POWDER 45 GM BTL 1 APPLIC TOPICAL ×2 (08:45→21:10)
[2022-02-23] MEDS: MONTELUKAST SODIUM 10 MG TABLET PO (08:46)
[2022-02-23] MEDS: CLOPIDOGREL BISULFATE 75 MG TABLET PO (08:46)
[2022-02-23] MEDS: ASPIRIN 81 MG CHEWABLE TABLET PO (08:46)
[2022-02-23] MEDS: CYANOCOBALAMIN 1,000 MCG TABLET 2000 MCG PO (08:46)
[2022-02-23] MEDS: PANTOPRAZOLE 40 MG TABLET PO (08:46)
[2022-02-23] MEDS: GABAPENTIN 300 MG CAPSULE PO ×2 (08:46→17:22)
[2022-02-23] MEDS: VERAPAMIL HCL 180 MG TABLET ER 360 MG PO (08:46)
[2022-02-23 08:54] LABS: Glucose Point of Care 231 mg/dl (65-105)
[2022-02-23] MEDS: INSULIN ASPART (*BKC) 100 UNITS/ML SUB-Q ×3 (09:42→17:22)
--- NOTE | 2022-02-23 11:47 | PCPTNOTE ---
Spoke to hospitalist about bed rest orders. Per hospitalist, pt OK to ambulate despite bed rest orders. RN aware.
[2022-02-23 12:15] LABS: Glucose Point of Care 264 mg/dl (65-105)
[2022-02-23] MEDS: BUMETANIDE INJ 1 MG/4 ML VIAL IV PUSH ×2 (12:15→17:22)
[2022-02-23 12:26] LABS: Partial Thromboplastin Time 77.3 SECONDS (22.3-36.8)
--- NOTE | 2022-02-23 16:05 | PM.IMPN ---
Progress Note: A&P Assessment and Plan (1) Acute hypoxemic respiratory failure: Code(s): J96.01 - Acute respiratory failure with hypoxia Status: Chronic Assessment and Plan: Acute multifactorial hypoxic Respiratory failure secondary to pulmonary edema from volume overload from renal failure and CHF, baseline COPD asthma overlap syndrome, obesity hypoventilation syndrome, RAINA, ? PE, ? Pneumonia oxygen supplementation via nasal cannula. Also placed on BiPAP intermittently for respiratory support. On hemodialysis for hypervolemia And worsened renal failure. Continue heparin infusion for DVT. CTA to rule out PE precluded by her renal failure and also it will not currency exchange specialist at this point. Echocardiogram does not show any RV dilation or systolic dysfunction She is on steroids and bronchodilators which will be continued She is on broad-spectrum antibiotics in the form of vancomycin and imipenem although clinical picture is less supportive of pneumonia. A procalcitonin level was low at 0.3 MRSA screen came back negative. Blood culture 02/20/2022 negative to date Continue on imipenem. Leukocytosis persistent worsened today will continue to monitor (2) Acute on chronic diastolic heart failure: Code(s): I50.33 - Acute on chronic diastolic (congestive) heart failure Status: Acute Assessment and Plan: Echocardiogram 02/11 Summary ? 1. Complete two-dimensional, color flow and Doppler transthoracic echocardiogram is performed. ? 2. Left ventricular chamber dimension is normal. ? 3. Left ventricular systolic function is normal, estimated at 60-65%. ? 4. The left ventricular diastolic function is abnormal. ? 5. E/e' 18 is elevated. ? 6. Left atrial chamber dimension is moderately enlarged. ? 7. There is mild aortic valve sclerosis. ? 8. The mitral valve has mildly thickened leaflets and moderately calcified annulus. ? 9. There is mild mitral valve regurgitation. ? 10. There is trace tricuspid valve regurgitation. Continue hemodialysis to remove fluid She is on aspirin Plavix ARB and calcium channel mike IV Bumex has been ordered per Nephrology's Still hypervolemic clinically (3) Hypertension: Code(s): I10 - Essential (primary) hypertension Status: Chronic Assessment and Plan: Blood pressure is elevated and it could be secondary to respiratory distress Continue home ARB and calcium channel mike Patient has been placed on BiPAP and should continue on BiPAP at night (4) Asthma-COPD overlap syndrome: Code(s): J44.9 - Chronic obstructive pulmonary disease, unspecified Status: Acute Assessment and Plan: Patient has history of smoking and was diagnosed with asthma in the past Patient evaluated by Pulmonary She is on bronchodilators and fluticasone (5) Sepsis: Code(s): A41.9 - Sepsis, unspecified organism Status: Acute Assessment and Plan: Secondary to UTI and possible pneumonia Cultures have been sent culture negative to date Urine cultures growing Klebsiella Patient is on vancomycin and imipenem. Will stop vancomycin today Blood pressure is elevated (6) MARINA (acute kidney injury): Code(s): N17.9 - Acute kidney failure, unspecified Status: Acute Assessment and Plan: Patient has acute kidney injury over chronic kidney disease which is multifactorial Patient is being followed by Nephrology and has been started on dialysis continue hemodialysis per embryology professor Hemodialysis p.r.n. for hypervolemia Creatinine not yet back to her baseline. Baseline creatinine is 1.51.6 (7) Stage 3b chronic kidney disease: Code(s): N18.32 - Chronic kidney disease, stage 3b Status: Acute (8) Anemia: Code(s): D64.9 - Anemia, unspecified Status: Acute Assessment and Plan: Appears to be stable. Monitor. No signs of active bleeding. She remains on heparin drip for her DVT Transfuse if less than 7 5 (9) H
[2022-02-23 17:18] LABS: Glucose Point of Care 301 mg/dl (65-105)
--- NOTE | 2022-02-23 17:30 | PM.PNPUL ---
Progress Note: A&P Assessment and Plan (1) Acute hypoxemic respiratory failure: Code(s): J96.01 - Acute respiratory failure with hypoxia Status: Chronic Assessment and Plan: She has improved, making adequate urine, last dialysis was Sunday. Weaned to 40%. Last CXR was yesterday. Stable infiltrates/pulmonayr edema. (2) Asthma-COPD overlap syndrome: Code(s): J44.9 - Chronic obstructive pulmonary disease, unspecified Status: Acute Assessment and Plan: She has asthma diagnosed at age 16, 37 pack year history of tobacco use; CT angiogram of the chest on 02/11/2022 does not show any evidence of bullous emphysema. She is morbidly obese and she may have undiagnosed obstructive sleep apnea. She has intermittent wheezing throughout the hospitalization and is currently being treated for an asthma COPD exacerbation with? steroids started on 02/11/2022, weaned off, has wheezing today which may be from pulmonary edema. She is on albuterol 5 mg nebulized q.6 hours, ipratropium 0.5 mg nebulized Q 6 hours and Advair 45-21 at 2 puffs q.12 hours. As an outpatient she was uncontrolled on Step 2 therapy with daily rescue albuterol use. ? I will continue albuterol 2.5 mg nebulized q.6 hours, ipratropium 0.5 mg nebulized Q 6 hours? and nebulized budesonide 0.5 mg b.i.d.. ? If she is stable tomorrow off of the steroids I will? discontinue her nebulizers and change her to inhaled trelegy 200/62.5/25 at 1 puff Q day. Regarding her BiPAP use the patient feels that she can breathe without BiPAP tonight and I will discontinue the BiPAP.? I will place the patient on 2 L nasal cannula and perform an overnight oximetry. ? Of note she has no evidence of hypercarbic respiratory failure with her admission blood gas 7.28/41/40. 02/16 ? The patient wore 2 L nasal cannula last night and sled that she slept well.? She has dyspnea on exertion but no shortness of breath at rest.? ? She states her breathing is no different than yesterday. Her white blood cell count is 13.8.? Creatinine is 5.3.? She is on room air with saturations 98%.? Patient had an overnight oximetry on 2 L nasal cannula with the average saturation of 99%.? Lowest saturation was 95%.? Time with saturation less than or equal to 88% was 0 minutes.? She has no wheezing on exam. 02/17? patient was on room air overnight and slept well.? States that her breathing at rest is without issues she does have some dyspnea on exertion.? Currently she is on room air with saturations 95%.? Creatinine is 4.4, BUN is 138 and per the bedside nurse the plan is to initiate hemodialysis today.? Patient had an unsuccessful? overnight oximetry is no data was recorded. ? She has no wheezing on exam. 02/23 On 40%, less short of breath, getting PT and OT. Not as short of breath with exertion. Subjective Date/time seen: 02/23/22 17:30 Interval history: Hospital Day #14 In ICU bed 3. This 71 year old female has a history of asthma diagnosed at age 16 as well as a 37 pack year history of tobacco use.? Her CT angiogram of the chest on 02/11/2022 does not show any evidence of bullous emphysema.Alva has elevated BMI 52.9, may have undiagnosed obstructive sleep apnea. She had intermittent wheezing earlier tis admission, was being treated for an asthma COPD exacerbation with?IV steroids on 02/11 then switched to prednisone 40 mg p.o. q.day 02/13. She was better, these were stopped. She was on albuterol 5 mg nebulized q.6 hours, ipratropium 0.5 mg nebulized Q 6 hours and Advair 45-21 at 2 puffs q.12 hours. As an outpatient she was uncontrolled on Step 2 therapy with daily rescue albuterol use. She continued albuterol 2.5 mg nebulized q.6 hours, ipratropium 0.5 mg nebulized Q 6 hours? and nebulized budesonide 0.5 mg b.i.d.. ?The plan was to transition to inhaled Trelegy 200/62.5/25 at 1
[2022-02-23 18:43] LABS: Vancomycin Random 13.9 ug/mL (10-20)
[2022-02-23 21:03] LABS: Glucose Point of Care 321 mg/dl (65-105)
[2022-02-23 21:07] LABS: Hematocrit 24.5 % (37.0-47.0); Hemoglobin 7.7 g/dL (12.0-15.0)
[2022-02-23] MEDS: INSULIN GLARGINE (*BKC) 100 UNITS/ML 40 UNITS SUB-Q (21:10)
[2022-02-23 21:12] LABS: IFOB Positive Control Positive; Immunochemical Fecal Occult Bl Positive (N)
[2022-02-23] MEDS: PANTOPRAZOLE SODIUM IV 40 MG VIAL IV PUSH (22:32)
[2022-02-24] VITALS (37 sets, daily range): BP systolic 128–154; BP diastolic 50–67; PULSE 72–92; RESP 11–22; TEMP 36.3–36.9; O2SAT 75–99
[2022-02-24] MEDS: ALPRAZolam (*CRX) 0.5 MG TABLET PO (00:02)
[2022-02-24] MEDS: CENTRAL LINE FLUSH 10 ML IV PUSH ×4 (06:06→20:55)
[2022-02-24] MEDS: LEVOTHYROXINE SODIUM 100 MCG TABLET 200 MCG PO (06:07)
[2022-02-24 06:08] LABS: Hematocrit 23.6 % (37.0-47.0); Hemoglobin 7.3 g/dL (12.0-15.0); Mean Corpuscular HGB Conc 30.9 g/dl (32-36); Mean Corpuscular Hemoglobin 26.5 pg (26-34); Mean Corpuscular Volume 85.8 fl (80-100); Mean Platelet Volume 10.4 fl (7.4-10.4); Platelet Count Result 286 k/mm3 (150-375); Red Blood Count 2.75 M/mm3 (4.2-5.4); Red Cell Distribution Width 16.6 % (11.5-14.5); White Blood Count 14.1 K/mm3 (4.5-10.0)
[2022-02-24 06:22] LABS: Alanine Aminotransferase 15 U/L (6-35); Albumin Level 3.1 g/dL (3.5-5.1); Alkaline Phosphatase 71 U/L (38-126); Anion Gap 11 mmol/L (8-16); Aspartate Amino Transferase 15 U/L (14-36); Bilirubin,Total 0.4 mg/dL (0.2-1.3); Blood Urea Nitrogen 61 mg/dL (7-17); Calcium 8.3 mg/dL (8.4-10.2); Carbon Dioxide 29 mmol/L (22-30); Chloride 95 mmol/L (98-107); Estimated CRCL calculation 27 ml/min; Estimated Glomerular Filt Rate 20; Glucose 287 mg/dL (65-110); Magnesium 1.6 mg/dL (1.6-2.3); Phosphorus 3.2 mg/dL (2.5-4.5); Sodium 135 mmol/L (137-145)
[2022-02-24 06:27] LABS: Partial Thromboplastin Time 83.9 SECONDS (22.3-36.8)
[2022-02-24] MEDS: FLUTICASONE/UMECLIDIN/VILANTER 200-62.5-25 MCG ELLIPTA 1 PUFF INHALATION (08:10)
[2022-02-24 08:18] LABS: Glucose Point of Care 267 mg/dl (65-105)
[2022-02-24] MEDS: INSULIN ASPART (*BKC) 100 UNITS/ML SUB-Q ×3 (10:13→17:34)
[2022-02-24] MEDS: TOLNAFTATE 1% POWDER 45 GM BTL 1 APPLIC TOPICAL ×2 (10:14→22:26)
[2022-02-24] MEDS: MONTELUKAST SODIUM 10 MG TABLET PO (10:14)
[2022-02-24] MEDS: VERAPAMIL HCL 180 MG TABLET ER 360 MG PO (10:14)
[2022-02-24] MEDS: BUMETANIDE INJ 1 MG/4 ML VIAL IV PUSH ×2 (10:15→17:35)
[2022-02-24] MEDS: CYANOCOBALAMIN 1,000 MCG TABLET 2000 MCG PO (10:15)
[2022-02-24] MEDS: CLOPIDOGREL BISULFATE 75 MG TABLET PO (10:15)
[2022-02-24] MEDS: FLUTICASONE PROPIONATE 0.05% NA SPR 16 GM BTL (*BKC) 2 SPRAY NASAL (10:15)
[2022-02-24] MEDS: ASPIRIN 81 MG CHEWABLE TABLET PO (10:15)
[2022-02-24] MEDS: GABAPENTIN 300 MG CAPSULE PO ×2 (10:15→17:34)
[2022-02-24] MEDS: PANTOPRAZOLE SODIUM IV 40 MG VIAL IV PUSH ×2 (10:16→20:53)
--- NOTE | 2022-02-24 10:50 | PCNWS ---
Weekly nutritional screen. Patient is tolerating current diet with adequate intake. No weight loss reported. No nutritional needs at this time.
--- NOTE | 2022-02-24 11:33 | PM.PNNEP ---
Progress Note: A&P Assessment and Plan (1) MARINA (acute kidney injury): Code(s): N17.9 - Acute kidney failure, unspecified Status: Acute Assessment and Plan: the patient has acute kidney injury. This was improving but then became septic so worsened again with low urine output. Now seems to be recovering a little more. Her creatinine is no longer rising and she is making more urine.. She is breathing comfortably. Chest x-ray is better. Will hold off on dialysis today Continue diuretics. She is on Bumex 1 mg b.i.d.. (2) Stage 3b chronic kidney disease: Code(s): N18.32 - Chronic kidney disease, stage 3b Status: Acute Assessment and Plan: The patient has a baseline creatinine of 1.6-2.0. creatinine was 2.1 as recently as in November and December. This is most likely due to hypertension and diabetes. (3) Acute hypoxemic respiratory failure: Code(s): J96.01 - Acute respiratory failure with hypoxia Status: Chronic Assessment and Plan: The patient seems better now. She is on nasal cannula only. (4) Acute on chronic diastolic heart failure: Code(s): I50.33 - Acute on chronic diastolic (congestive) heart failure Status: Acute Assessment and Plan: Continue diuretics diuretics (5) Hypertension: Code(s): I10 - Essential (primary) hypertension Status: Chronic Assessment and Plan: systolic in the 130s this morning. (6) Anemia: Code(s): D64.9 - Anemia, unspecified Status: Acute Assessment and Plan: Hemoglobin is low. Since she is not getting dialysis will switch EPO to subcu (7) Type 2 diabetes mellitus with hyperglycemia: Code(s): E11.65 - Type 2 diabetes mellitus with hyperglycemia Status: Chronic Assessment and Plan: on Accu-Cheks and sliding-scale insulin (8) Sepsis: Code(s): A41.9 - Sepsis, unspecified organism Status: Acute Assessment and Plan: blood cultures negative. Urine culture showed Klebsiella which is sensitive to all except ampicillin and cefazolin. on antibiotics Subjective Date/time seen: 02/24/22 11:33 Interval history: Gregoria is looking about the same today no sob. She is sitting up in a chair. She feels much better Exam Narrative: WDWN in NAD skin no rash head ncat lungs clear bilaterally with decreased breath sounds at the bases cor reg no rub or gallop abd BS+ nontender and soft ext 1+edema. Objective Data Vital Signs Vital Signs: Vital Signs - 24 hr 02/23/22 11:56 02/23/22 12:00 02/23/22 12:00 Temperature 36.8 C Pulse Rate 85 84 Respiratory Rate 15 Blood Pressure 138/58 L Pulse Oximetry 95 96 Oxygen Delivery Nasal Cannula Oxygen Flow Rate 3 Fraction of Inspired Oxygen 02/23/22 14:00 02/23/22 15:17 02/23/22 15:56 Temperature Pulse Rate 85 76 Respiratory Rate Blood Pressure Pulse Oximetry 96 Oxygen Delivery Nasal Cannula Oxygen Flow Rate 3 Fraction of Inspired Oxygen 02/23/22 17:00 02/23/22 18:00 02/23/22 20:00 Temperature 37.0 C Pulse Rate 77 80 79 Respiratory Rate 16 18 Blood Pressure 144/84 H 166/65 H Pulse Oximetry 96 97 Oxygen Delivery Oxygen Flow Rate Fraction of Inspired Oxygen 02/23/22 20:00 02/23/22 20:00 02/23/22 22:00 Temperature Pulse Rate 79 79 76 Respiratory Rate 18 Blood Pressure Pulse Oximetry 97 Oxygen Delivery Nasal Cannula Oxygen Flow Rate 3 Fraction of Inspired Oxygen 02/23/22 23:50 02/24/22 00:00 02/24/22 00:00 Temperature 36.9 C Pulse Rate 79 78 78 Respiratory Rate 15 15 Blood Pressure 164/62 H Pulse Oximetry 96 96 Oxygen Delivery Nasal Cannula Oxygen Flow Rate 3 Fraction of Inspired Oxygen 40 02/24/22 01:01 02/24/22 02:00 02/24/22 04:00 Temperature Pulse Rate 83 75 74 Respiratory Rate 19 Blood Pressure Pulse Oximetry 75 L Ox
--- NOTE | 2022-02-24 12:35 | PCOTNOTE ---
Attempted to see patient, however patient eating lunch at this time.
[2022-02-24 12:42] LABS: Glucose Point of Care 232 mg/dl (65-105)
[2022-02-24] MEDS: EPOETIN ALFA-EPBX 10,000 UNITS/ML VIAL 10000 UNITS SUB-Q (13:15)
[2022-02-24] MEDS: HEPARIN SOD/D5W 100 UNITS/ML 25,000 UNITS/250 ML BAG 17 UNITS IV CONT (13:15)
--- NOTE | 2022-02-24 15:01 | WPDGICN ---
Assessment and Plan Assessment and plan (1) Occult blood in stools: Code(s): R19.5 - Other fecal abnormalities Status: Acute Assessment and Plan: Patient found to have occult blood in stool. Etiology unclear. Differential diagnosis is broad. Patient is chronically anemic with no signs of acute blood loss. Currently sure she is not in a situation where colonoscopy would be beneficial at would be detrimental to her care. Would recommend observation. Continue monitor hemoglobin. Likely anemia on the basis of chronic disease. (2) Anemia: Code(s): D64.9 - Anemia, unspecified Status: Acute Assessment and Plan: Anemia likely multifactorial. Suggest iron studies continue to monitor closely. While she is on heparin for DVT. (3) DVT (deep venous thrombosis): Code(s): I82.409 - Acute embolism and thrombosis of unspecified deep veins of unspecified lower extremity Status: Acute Assessment and Plan: Patient now heparinized because of acute DVT. Continue monitor closely given her occult blood in stool. (4) UTI (urinary tract infection): Code(s): N39.0 - Urinary tract infection, site not specified Status: Acute (5) COPD (chronic obstructive pulmonary disease): Code(s): J44.9 - Chronic obstructive pulmonary disease, unspecified Status: Acute GI Consult Note Consult date/time: 02/24/22 15:01 Reason for consult: Occult positive stool. HPI: Gregoria Rae is a 71 year old female I am asked to see at the request of the hospitalist service. Patient has a history of asthma since age 16. She smokes cigarettes for at least 37 years. Patient admitted the hospital with exacerbation of COPD. Patient has been placed in the intensive care unit along with decreased mentation. She is felt to have a DVT for which she is on heparin drip. Today patient was noted to have Hemoccult-positive stools. For this reason I have been consulted. No decline in hemoglobin has been noted. Patient currently sitting breath short of breath history obtained from the patient and . Patient does give a history of underlying heartburn for which she takes pantoprazole 40mg p.o. daily for long time. Review of Systems Review of Systems: Review of systems noncontributory. 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 Chronic diastolic (congestive) heart failure Chronic kidney disease, stage 3 unspecified Chronic kidney disease, stage III (moderate) COPD (chronic obstructive pulmonary disease) Coronary artery disease involving [place] heart without angina pectoris Depression DVT (deep venous thrombosis) ARACELY (generalized anxiety disorder) GERD without esophagitis History of stroke Hypertensive heart disease with heart failure and stage 3 chronic kidney disease Hypothyroid Left knee DJD Long-term insulin use Peripheral polyneuropathy Pre-ulcerative calluses Sepsis Type 2 diabetes mellitus with hyperglycemia Family History Family History Father Hypertension Family history of coronary artery disease Sibling Hypertension Family history of coronary artery disease Mother Cerebrovascular accident Other Asthma Depression Family history of Alzheimer's disease Family history of arthritis Family history of cardiovascular disease Family history of lymphoma Family history of obesity Family history of seizure disorder Social History Social History Smoking packs per day: 2 Smoking cigarettes per day: 40.0 Years smoked: 22 Smoking pack-years: 44.00 Smoking status: Former smoker Tobacco type: cigarettes Second hand tobacco smoke exposure: No Smoking end date: 05/07/87 Alcohol intake: current Alcohol use details: 1/MONTH Substance use: current
--- NOTE | 2022-02-24 15:21 | PM.IMPN ---
Progress Note: A&P Assessment and Plan (1) Acute hypoxemic respiratory failure: Code(s): J96.01 - Acute respiratory failure with hypoxia Status: Chronic Assessment and Plan: Acute multifactorial hypoxic Respiratory failure secondary to pulmonary edema from volume overload from renal failure and CHF, baseline COPD asthma overlap syndrome, obesity hypoventilation syndrome, RAINA, ? PE, ? Pneumonia oxygen supplementation via nasal cannula. Also placed on BiPAP intermittently for respiratory support. On hemodialysis for hypervolemia And worsened renal failure. Continue heparin infusion for DVT. CTA to rule out PE precluded by her renal failure and also it will not record changer at this point. Echocardiogram does not show any RV dilation or systolic dysfunction She is on steroids and bronchodilators which will be continued She is on broad-spectrum antibiotics in the form of vancomycin and imipenem although clinical picture is less supportive of pneumonia. A procalcitonin level was low at 0.3 MRSA screen came back negative. Blood culture 02/20/2022 negative to date Continue on imipenem. Leukocytosis persist. Continue to monitor (2) Acute on chronic diastolic heart failure: Code(s): I50.33 - Acute on chronic diastolic (congestive) heart failure Status: Acute Assessment and Plan: Echocardiogram 02/11 Summary ? 1. Complete two-dimensional, color flow and Doppler transthoracic echocardiogram is performed. ? 2. Left ventricular chamber dimension is normal. ? 3. Left ventricular systolic function is normal, estimated at 60-65%. ? 4. The left ventricular diastolic function is abnormal. ? 5. E/e' 18 is elevated. ? 6. Left atrial chamber dimension is moderately enlarged. ? 7. There is mild aortic valve sclerosis. ? 8. The mitral valve has mildly thickened leaflets and moderately calcified annulus. ? 9. There is mild mitral valve regurgitation. ? 10. There is trace tricuspid valve regurgitation. Continue hemodialysis to remove fluid She is on aspirin Plavix ARB and calcium channel mike IV Bumex has been ordered per Nephrology's Still hypervolemic clinically Continue IV Bumex as ordered. Monitor renal function with a (3) Hypertension: Code(s): I10 - Essential (primary) hypertension Status: Chronic Assessment and Plan: Blood pressure is elevated and it could be secondary to respiratory distress Continue home ARB and calcium channel mike Patient has been placed on BiPAP and should continue on BiPAP at night (4) Asthma-COPD overlap syndrome: Code(s): J44.9 - Chronic obstructive pulmonary disease, unspecified Status: Acute Assessment and Plan: Patient has history of smoking and was diagnosed with asthma in the past Patient evaluated by Pulmonary She is on bronchodilators and fluticasone (5) Sepsis: Code(s): A41.9 - Sepsis, unspecified organism Status: Acute Assessment and Plan: Secondary to UTI and possible pneumonia Cultures have been sent culture negative to date Urine cultures growing Klebsiella Patient is on vancomycin and imipenem. Will stop vancomycin today Blood pressure is elevated (6) MARINA (acute kidney injury): Code(s): N17.9 - Acute kidney failure, unspecified Status: Acute Assessment and Plan: Patient has acute kidney injury over chronic kidney disease which is multifactorial Patient is being followed by Nephrology and has been started on dialysis continue hemodialysis per material chaser Hemodialysis p.r.n. for hypervolemia Creatinine not yet back to her baseline. Baseline creatinine is 1.5 to 1.6 (7) Stage 3b chronic kidney disease: Code(s): N18.32 - Chronic kidney disease, stage 3b Status: Acute (8) Anemia: Code(s): D64.9 - Anemia, unspecified Status: Acute Assessment and Plan: Appears to be stable. Monitor. No signs of active bleeding. She remains on heparin drip
[2022-02-24] MEDS: ALBUTEROL SULFATE NEB 2.5 MG/3 ML INH INHALATION ×2 (17:17→22:00)
[2022-02-24] MEDS: IPRATROPIUM BR 0.02% INH SOLN 0.5 MG/2.5 ML VIAL INHALATION (17:17)
[2022-02-24 17:34] LABS: Glucose Point of Care 288 mg/dl (65-105)
[2022-02-24 19:56] LABS: Glucose Point of Care 292 mg/dl (65-105)
[2022-02-24] MEDS: INSULIN GLARGINE (*BKC) 100 UNITS/ML 40 UNITS SUB-Q (20:52)
--- NOTE | 2022-02-24 21:39 | PM.PNPUL ---
Progress Note: A&P Assessment and Plan (1) Acute hypoxemic respiratory failure: Code(s): J96.01 - Acute respiratory failure with hypoxia Status: Chronic Assessment and Plan: She has improved, making adequate urine, last dialysis was Sunday. Weaned to 40%. Last CXR was stable. Stable infiltrates/pulmonary edema. Good diuresis. (2) Asthma-COPD overlap syndrome: Code(s): J44.9 - Chronic obstructive pulmonary disease, unspecified Status: Acute Assessment and Plan: She has asthma diagnosed at age 16, 37 pack year history of tobacco use; CT angiogram of the chest on 02/11/2022 does not show any evidence of bullous emphysema. She is morbidly obese and she may have undiagnosed obstructive sleep apnea. She has intermittent wheezing throughout the hospitalization and is currently being treated for an asthma COPD exacerbation with? steroids started on 02/11/2022, weaned off, has wheezing today which may be from pulmonary edema. She is on albuterol 5 mg nebulized q.6 hours, ipratropium 0.5 mg nebulized Q 6 hours and Advair 45-21 at 2 puffs q.12 hours. As an outpatient she was uncontrolled on Step 2 therapy with daily rescue albuterol use. ? I will continue albuterol 2.5 mg nebulized q.6 hours, ipratropium 0.5 mg nebulized Q 6 hours? and nebulized budesonide 0.5 mg b.i.d.. ? If she is stable tomorrow off of the steroids I will? discontinue her nebulizers and change her to inhaled trelegy 200/62.5/25 at 1 puff Q day. Regarding her BiPAP use the patient feels that she can breathe without BiPAP tonight and I will discontinue the BiPAP.? I will place the patient on 2 L nasal cannula and perform an overnight oximetry. ? Of note she has no evidence of hypercarbic respiratory failure with her admission blood gas 7.28/41/40. 02/16 ? The patient wore 2 L nasal cannula last night and sled that she slept well.? She has dyspnea on exertion but no shortness of breath at rest.? ? She states her breathing is no different than yesterday. Her white blood cell count is 13.8.? Creatinine is 5.3.? She is on room air with saturations 98%.? Patient had an overnight oximetry on 2 L nasal cannula with the average saturation of 99%.? Lowest saturation was 95%.? Time with saturation less than or equal to 88% was 0 minutes.? She has no wheezing on exam. 02/17? patient was on room air overnight and slept well.? States that her breathing at rest is without issues she does have some dyspnea on exertion.? Currently she is on room air with saturations 95%.? Creatinine is 4.4, BUN is 138 and per the bedside nurse the plan is to initiate hemodialysis today.? Patient had an unsuccessful? overnight oximetry is no data was recorded. ? She has no wheezing on exam. 02/23 On 40%, less short of breath, getting PT and OT. Not as short of breath with exertion. 02/24 on 40%, wants to try APAP with sleep. Subjective Date/time seen: 02/24/22 21:39 Interval history: Hospital Day #15 IMU Room 204 This 71 year old female has a history of asthma diagnosed at age 16 as well as a 37 pack year history of tobacco use.? Her CT angiogram of the chest on 02/11/2022 does not show any evidence of bullous emphysema.Alva has elevated BMI 52.9, may have undiagnosed obstructive sleep apnea. She had intermittent wheezing earlier this admission, was being treated for an asthma COPD exacerbation with?IV steroids on 02/11 then switched to prednisone 40 mg p.o. q.day 02/13. She was better, these were stopped. She was on albuterol 5 mg nebulized q.6 hours, ipratropium 0.5 mg nebulized Q 6 hours and Advair 45-21 at 2 puffs q.12 hours. As an outpatient she was uncontrolled on Step 2 therapy with daily rescue albuterol use. She continued albuterol 2.5 mg nebulized q.6 hours, ipratropium 0.5 mg nebulized Q 6 hours? and nebulized budesonide 0.5 mg b.i.d.. ?The collin
[2022-02-25] VITALS (30 sets, daily range): BP systolic 103–188; BP diastolic 54–92; PULSE 71–88; RESP 18–24; TEMP 36.1–37; O2SAT 92–100
[2022-02-25] MEDS: CENTRAL LINE FLUSH 20 ML IV PUSH (04:51)
[2022-02-25] MEDS: CENTRAL LINE FLUSH 10 ML IV PUSH ×4 (04:51→21:28)
[2022-02-25 04:57] LABS: Hematocrit 24.5 % (37.0-47.0); Hemoglobin 7.6 g/dL (12.0-15.0); Mean Corpuscular Volume 87.2 fl (80-100); Mean Platelet Volume 9.6 fl (7.4-10.4); Platelet Count Result 290 k/mm3 (150-375); Red Blood Count 2.81 M/mm3 (4.2-5.4); Red Cell Distribution Width 16.8 % (11.5-14.5); White Blood Count 17.3 K/mm3 (4.5-10.0)
[2022-02-25 05:08] LABS: Alanine Aminotransferase 16 U/L (6-35); Albumin Level 3.2 g/dL (3.5-5.1); Alkaline Phosphatase 82 U/L (38-126); Anion Gap 9 mmol/L (8-16); Aspartate Amino Transferase 22 U/L (14-36); Bilirubin,Total 0.4 mg/dL (0.2-1.3); Blood Urea Nitrogen 62 mg/dL (7-17); Calcium 8.5 mg/dL (8.4-10.2); Carbon Dioxide 29 mmol/L (22-30); Chloride 96 mmol/L (98-107); Estimated CRCL calculation 28 ml/min; Estimated Glomerular Filt Rate 21; Glucose 292 mg/dL (65-110); Magnesium 1.5 mg/dL (1.6-2.3); Potassium 4.3 mmol/L (3.4-5.0); Sodium 134 mmol/L (137-145)
[2022-02-25 05:12] LABS: Partial Thromboplastin Time 95.9 SECONDS (22.3-36.8)
[2022-02-25] MEDS: LEVOTHYROXINE SODIUM 100 MCG TABLET 200 MCG PO (06:02)
[2022-02-25] MEDS: HEPARIN SOD/D5W 100 UNITS/ML 25,000 UNITS/250 ML BAG 17 UNITS IV CONT ×2 (06:02→21:25)
[2022-02-25] MEDS: FLUTICASONE/UMECLIDIN/VILANTER 200-62.5-25 MCG ELLIPTA 1 PUFF INHALATION (08:00)
[2022-02-25 08:56] LABS: Glucose Point of Care 229 mg/dl (65-105)
[2022-02-25] MEDS: INSULIN ASPART (*BKC) 100 UNITS/ML SUB-Q ×3 (09:48→17:46)
[2022-02-25] MEDS: CYANOCOBALAMIN 1,000 MCG TABLET 2000 MCG PO (09:51)
[2022-02-25] MEDS: VERAPAMIL HCL 180 MG TABLET ER 360 MG PO (09:52)
[2022-02-25] MEDS: MONTELUKAST SODIUM 10 MG TABLET PO (09:52)
[2022-02-25] MEDS: GABAPENTIN 300 MG CAPSULE PO ×2 (09:52→17:44)
[2022-02-25] MEDS: CLOPIDOGREL BISULFATE 75 MG TABLET PO (09:52)
[2022-02-25] MEDS: ASPIRIN 81 MG CHEWABLE TABLET PO (09:52)
[2022-02-25] MEDS: PANTOPRAZOLE SODIUM IV 40 MG VIAL IV PUSH ×2 (09:54→21:24)
[2022-02-25] MEDS: BUMETANIDE INJ 2.5 MG/10 ML VIAL 2 MG IV PUSH ×2 (09:54→17:44)
--- NOTE | 2022-02-25 11:39 | PM.PNNEP ---
Progress Note: A&P Assessment and Plan (1) MARINA (acute kidney injury): Code(s): N17.9 - Acute kidney failure, unspecified Status: Acute Assessment and Plan: the patient has acute kidney injury. Her creatinine cristina quite a bit after contrast and then after infection and then has fallen to close to her baseline. Currently her main issue was that she is volume overloaded. She is on maximal diuretics but still her urine output is not that much more than the intake. Her echo shows that her heart is okay. Venous Doppler did show a clot on 1 side but does not explain bilateral swelling. I am going to get a CT of the abdomen to see if she has some sort of liver, retroperitoneal, or pelvic issue causing her swelling. However she also has fluid in the lungs and the above test would not explain that. I suspect that her kidney function is worse than is suggested by the estimated GFR. If so then it may mean that dialysis is the only way to get rid of the fluid. Right now she is uncomfortable with breathing on any exertion so I am going to do another dry ultrafiltration run today to take 2 or 3 more L off. I will check a 24hour urine starting tomorrow to see if her creatinine clearance is lower than her EGFR. Long discussion with the patient and also with Dr. Macedo. 25min were spent in discussions with patient and Dr Avalos (2) Stage 3b chronic kidney disease: Code(s): N18.32 - Chronic kidney disease, stage 3b Status: Acute Assessment and Plan: The patient has a baseline creatinine of 1.6-2.0. creatinine was 2.1 as recently as in November and December. This is most likely due to hypertension and diabetes. (3) Acute hypoxemic respiratory failure: Code(s): J96.01 - Acute respiratory failure with hypoxia Status: Chronic Assessment and Plan: The patient seems better now. She is on nasal cannula only. However she still has significant burden of shortness of breath. (4) Acute on chronic diastolic heart failure: Code(s): I50.33 - Acute on chronic diastolic (congestive) heart failure Status: Acute Assessment and Plan: Continue diuretics . Will also dry ultrafiltrate today. (5) Hypertension: Code(s): I10 - Essential (primary) hypertension Status: Chronic Assessment and Plan: systolic Is higher today. Will see how it is once we get more fluid off. (6) Anemia: Code(s): D64.9 - Anemia, unspecified Status: Acute Assessment and Plan: Hemoglobin is low. On subcu Epogen. (7) Type 2 diabetes mellitus with hyperglycemia: Code(s): E11.65 - Type 2 diabetes mellitus with hyperglycemia Status: Chronic Assessment and Plan: on Accu-Cheks and sliding-scale insulin (8) Sepsis: Code(s): A41.9 - Sepsis, unspecified organism Status: Acute Assessment and Plan: blood cultures negative. Urine culture showed Klebsiella which is sensitive to all except ampicillin and cefazolin. on antibiotics Subjective Date/time seen: 02/25/22 11:39 Interval history: Gregoria is looking about the same today She had some shortness of breath when doing physical therapy. Is not short of breath when sitting still. She does get a little breath the with talking but she says that this happens all the time. Exam Narrative: WDWN in NAD skin no rash head ncat lungs clear bilaterally with decreased breath sounds at the bases cor reg no rub or gallop abd BS+ nontender and soft ext 1-2+edema. Objective Data Vital Signs Vital Signs: Vital Signs - 24 hr 02/24/22 12:00 02/24/22 11:45 02/24/22 12:00 Temperature Pulse Rate 92 83 Respiratory Rate Blood Pressure Pulse Oximetry 97 86 L 97 Oxygen Delivery Nasal Cannula Oxygen Flow Rate 3 02/24/22 12:15 02/24/22 12:30 02/24/22 12:45 Temperature Pulse Rate 81 84 86 Respiratory Rate Blood Pressure
[2022-02-25 12:07] LABS: Glucose Point of Care 322 mg/dl (65-105)
[2022-02-25] MEDS: TOLNAFTATE 1% POWDER 45 GM BTL 1 APPLIC TOPICAL ×2 (12:12→21:36)
[2022-02-25 12:35] LABS: Complement C3 87 mg/dL (88-165)
[2022-02-25 13:14] LABS: Erythrocyte Sedimentation Rate > 140 mm/hr (0-20)
--- NOTE | 2022-02-25 16:00 | PM.IMPN ---
Progress Note: A&P Assessment and Plan (1) Acute hypoxemic respiratory failure: Code(s): J96.01 - Acute respiratory failure with hypoxia Status: Chronic Assessment and Plan: Acute multifactorial hypoxic Respiratory failure secondary to pulmonary edema from volume overload from renal failure and CHF, baseline COPD asthma overlap syndrome, obesity hypoventilation syndrome, RAINA, ? PE, ? Pneumonia oxygen supplementation via nasal cannula. Also placed on BiPAP intermittently for respiratory support. On hemodialysis for hypervolemia And worsened renal failure. Continue heparin infusion for DVT. CTA to rule out PE precluded by her renal failure and also it will not foreign exchange clerk at this point. Echocardiogram does not show any RV dilation or systolic dysfunction She is on steroids and bronchodilators which will be continued She is on broad-spectrum antibiotics in the form of vancomycin and imipenem although clinical picture is less supportive of pneumonia. A procalcitonin level was low at 0.3 MRSA screen came back negative. Blood culture 02/20/2022 negative to date Continue on imipenem. Leukocytosis persist. Continue to monitor (2) Acute on chronic diastolic heart failure: Code(s): I50.33 - Acute on chronic diastolic (congestive) heart failure Status: Acute Assessment and Plan: Echocardiogram 02/11 Summary ? 1. Complete two-dimensional, color flow and Doppler transthoracic echocardiogram is performed. ? 2. Left ventricular chamber dimension is normal. ? 3. Left ventricular systolic function is normal, estimated at 60-65%. ? 4. The left ventricular diastolic function is abnormal. ? 5. E/e' 18 is elevated. ? 6. Left atrial chamber dimension is moderately enlarged. ? 7. There is mild aortic valve sclerosis. ? 8. The mitral valve has mildly thickened leaflets and moderately calcified annulus. ? 9. There is mild mitral valve regurgitation. ? 10. There is trace tricuspid valve regurgitation. Continue hemodialysis to remove fluid She is on aspirin Plavix ARB and calcium channel mike. ARB is on hold due to renal dysfunction IV Bumex has been ordered per Nephrology's Still hypervolemic clinically Continue IV Bumex as ordered. Monitor renal function with a (3) Hypertension: Code(s): I10 - Essential (primary) hypertension Status: Chronic Assessment and Plan: Blood pressure is elevated and it could be secondary to respiratory distress Continue home ARB and calcium channel mike Patient has been placed on BiPAP and should continue on BiPAP at night ARB is on hold due to renal failure (4) Asthma-COPD overlap syndrome: Code(s): J44.9 - Chronic obstructive pulmonary disease, unspecified Status: Acute Assessment and Plan: Patient has history of smoking and was diagnosed with asthma in the past Patient evaluated by Pulmonary She is on bronchodilators and fluticasone (5) Sepsis: Code(s): A41.9 - Sepsis, unspecified organism Status: Acute Assessment and Plan: Secondary to UTI and possible pneumonia Cultures have been sent culture negative to date Urine cultures growing Klebsiella Patient is on vancomycin and imipenem. Stop vancomycin. Continue on imipenem Blood pressure is elevated (6) MARINA (acute kidney injury): Code(s): N17.9 - Acute kidney failure, unspecified Status: Acute Assessment and Plan: Patient has acute kidney injury over chronic kidney disease which is multifactorial Patient is being followed by Nephrology and has been started on dialysis continue hemodialysis per director search Hemodialysis p.r.n. for hypervolemia Creatinine not yet back to her baseline. Baseline creatinine is 1.5 to 1.6 (7) Stage 3b chronic kidney disease: Code(s): N18.32 - Chronic kidney disease, stage 3b Status: Acute (8) Anemia: Code(s): D64.9 - Anemia, unspecified Status: Acute Assessment and Plan:
[2022-02-25 16:54] LABS: Glucose Point of Care 263 mg/dl (65-105)
[2022-02-25] MEDS: FLUTICASONE PROPIONATE 0.05% NA SPR 16 GM BTL (*BKC) 2 SPRAY NASAL (17:42)
[2022-02-25] MEDS: INSULIN ASPART (*BKC) 100 UNITS/ML 15 UNITS SUB-Q (17:45)
--- NOTE | 2022-02-25 19:46 | PC.NURSE ---
1300- 1600 pt in dialysis for treatment- returned to room after treatment - 3 liters removed -no c/o pain or SOB- VSS
[2022-02-25 20:11] LABS: Glucose Point of Care 218 mg/dl (65-105)
[2022-02-25] MEDS: INSULIN GLARGINE (*BKC) 100 UNITS/ML 50 UNITS SUB-Q (21:32)
--- NOTE | 2022-02-25 22:24 | PM.PNPUL ---
Progress Note: A&P Assessment and Plan (1) Acute hypoxemic respiratory failure: Code(s): J96.01 - Acute respiratory failure with hypoxia Status: Chronic Assessment and Plan: She has improved, making adequate urine, last dialysis was Today, 3 L off. Now weaned to Room air. Good diuresis. (2) Asthma-COPD overlap syndrome: Code(s): J44.9 - Chronic obstructive pulmonary disease, unspecified Status: Acute Assessment and Plan: She has asthma diagnosed at age 16, 37 pack year history of tobacco use; CT angiogram of the chest on 02/11/2022 does not show any evidence of bullous emphysema. She is morbidly obese and she may have undiagnosed obstructive sleep apnea. She has intermittent wheezing throughout the hospitalization and is currently being treated for an asthma COPD exacerbation with? steroids started on 02/11/2022, weaned off, has wheezing today which may be from pulmonary edema. She is on albuterol 5 mg nebulized q.6 hours, ipratropium 0.5 mg nebulized Q 6 hours and Advair 45-21 at 2 puffs q.12 hours. As an outpatient she was uncontrolled on Step 2 therapy with daily rescue albuterol use. ? I will continue albuterol 2.5 mg nebulized q.6 hours, ipratropium 0.5 mg nebulized Q 6 hours? and nebulized budesonide 0.5 mg b.i.d.. ? If she is stable tomorrow off of the steroids I will? discontinue her nebulizers and change her to inhaled trelegy 200/62.5/25 at 1 puff Q day. Regarding her BiPAP use the patient feels that she can breathe without BiPAP tonight and I will discontinue the BiPAP.? I will place the patient on 2 L nasal cannula and perform an overnight oximetry. ? Of note she has no evidence of hypercarbic respiratory failure with her admission blood gas 7.28/41/40. 02/16 ? The patient wore 2 L nasal cannula last night and sled that she slept well.? She has dyspnea on exertion but no shortness of breath at rest.? ? She states her breathing is no different than yesterday. Her white blood cell count is 13.8.? Creatinine is 5.3.? She is on room air with saturations 98%.? Patient had an overnight oximetry on 2 L nasal cannula with the average saturation of 99%.? Lowest saturation was 95%.? Time with saturation less than or equal to 88% was 0 minutes.? She has no wheezing on exam. 02/17? patient was on room air overnight and slept well.? States that her breathing at rest is without issues she does have some dyspnea on exertion.? Currently she is on room air with saturations 95%.? Creatinine is 4.4, BUN is 138 and per the bedside nurse the plan is to initiate hemodialysis today.? Patient had an unsuccessful? overnight oximetry is no data was recorded. ? She has no wheezing on exam. 02/23 On 40%, less short of breath, getting PT and OT. Not as short of breath with exertion. 02/24 on 40%, wants to try APAP with sleep. 02/25 on ROOM AIR; Slept very well with a PAP last night and supplemental oxygen. We will try to arrange this for her to use at home. She does not want to go to rehab which is understandable but if she goes it may help her out quite a bit especially with therapy. Using APAP may help her with perfusion, volume control, weight loss. Subjective Date/time seen: 02/25/22 21:45 Interval history: IMU Room 204? This 71 year old female has a history of asthma diagnosed at age 16 as well as a 37 pack year history of tobacco use.? Her CT angiogram of the chest on 02/11/2022 does not show any evidence of bullous emphysema.Alva has elevated BMI 52.9, may have? undiagnosed obstructive sleep apnea. She had intermittent wheezing earlier this admission, was being treated for an asthma COPD exacerbation with?IV steroids on 02/11 then switched to prednisone 40 mg p.o. q.day 02/13. She was better, these were stopped. She was on albuterol 5 mg nebulized q.6 hours, ipratropium 0.5 mg nebulized Q 6
[2022-02-26] VITALS (17 sets, daily range): BP systolic 147–182; BP diastolic 46–66; PULSE 67–85; RESP 13–22; TEMP 36.2–36.8; O2SAT 93–99
[2022-02-26 02:36] LABS: Creatinine Urine 58.1 mg/dL; Total Protein Urine Random 51 mg/dL; Ur Ttl Prot Creatinine Ratio 0.88 mg/mg (0-0.20)
[2022-02-26] MEDS: CENTRAL LINE FLUSH 10 ML IV PUSH ×4 (04:07→20:19)
[2022-02-26] MEDS: CENTRAL LINE FLUSH 20 ML IV PUSH (04:07)
[2022-02-26 04:16] LABS: Hematocrit 24.7 % (37.0-47.0); Hemoglobin 7.8 g/dL (12.0-15.0); Mean Corpuscular HGB Conc 31.6 g/dl (32-36); Mean Corpuscular Hemoglobin 27.3 pg (26-34); Mean Corpuscular Volume 86.4 fl (80-100); Mean Platelet Volume 9.9 fl (7.4-10.4); Platelet Count Result 334 k/mm3 (150-375); Red Blood Count 2.86 M/mm3 (4.2-5.4); Red Cell Distribution Width 16.6 % (11.5-14.5); White Blood Count 16.6 K/mm3 (4.5-10.0)
[2022-02-26 04:25] LABS: Alanine Aminotransferase 17 U/L (6-35); Albumin Level 3.2 g/dL (3.5-5.1); Alkaline Phosphatase 79 U/L (38-126); Anion Gap 9 mmol/L (8-16); Aspartate Amino Transferase 28 U/L (14-36); Bilirubin,Total 0.4 mg/dL (0.2-1.3); Blood Urea Nitrogen 62 mg/dL (7-17); Calcium 8.7 mg/dL (8.4-10.2); Carbon Dioxide 29 mmol/L (22-30); Chloride 97 mmol/L (98-107); Estimated CRCL calculation 32 ml/min; Estimated Glomerular Filt Rate 24; Glucose 227 mg/dL (65-110); Magnesium 1.4 mg/dL (1.6-2.3); Phosphorus 2.9 mg/dL (2.5-4.5); Potassium 4.2 mmol/L (3.4-5.0); Sodium 135 mmol/L (137-145)
[2022-02-26 04:28] LABS: Partial Thromboplastin Time 88.8 SECONDS (22.3-36.8)
[2022-02-26] MEDS: LEVOTHYROXINE SODIUM 100 MCG TABLET 200 MCG PO (05:47)
[2022-02-26 08:09] LABS: Glucose Point of Care 267 mg/dl (65-105)
[2022-02-26] MEDS: INSULIN ASPART (*BKC) 100 UNITS/ML 15 UNITS SUB-Q ×3 (08:51→17:52)
[2022-02-26] MEDS: INSULIN ASPART (*BKC) 100 UNITS/ML SUB-Q (08:51)
[2022-02-26] MEDS: PANTOPRAZOLE SODIUM IV 40 MG VIAL IV PUSH ×2 (08:52→20:19)
[2022-02-26] MEDS: CLOPIDOGREL BISULFATE 75 MG TABLET PO (08:53)
[2022-02-26] MEDS: MAGNESIUM SULF 1 GM/D5W 100 ML 1 GM/100 ML BAG IVPB (08:53)
[2022-02-26] MEDS: CYANOCOBALAMIN 1,000 MCG TABLET 2000 MCG PO (08:53)
[2022-02-26] MEDS: MONTELUKAST SODIUM 10 MG TABLET PO (08:53)
[2022-02-26] MEDS: FLUTICASONE PROPIONATE 0.05% NA SPR 16 GM BTL (*BKC) 2 SPRAY NASAL (08:53)
[2022-02-26] MEDS: GABAPENTIN 300 MG CAPSULE PO ×2 (08:53→17:50)
[2022-02-26] MEDS: VERAPAMIL HCL 180 MG TABLET ER 360 MG PO (08:54)
[2022-02-26] MEDS: BUMETANIDE INJ 2.5 MG/10 ML VIAL 2 MG IV PUSH ×2 (08:54→17:50)
[2022-02-26] MEDS: ASPIRIN 81 MG CHEWABLE TABLET PO (08:54)
[2022-02-26] MEDS: FLUTICASONE/UMECLIDIN/VILANTER 200-62.5-25 MCG ELLIPTA 1 PUFF INHALATION (09:26)
[2022-02-26] MEDS: TOLNAFTATE 1% POWDER 45 GM BTL 1 APPLIC TOPICAL ×2 (09:28→20:24)
--- NOTE | 2022-02-26 10:10 | PM.PNNEP ---
Progress Note: A&P Assessment and Plan (1) MARINA (acute kidney injury): Code(s): N17.9 - Acute kidney failure, unspecified Status: Acute Assessment and Plan: the patient has acute kidney injury. Her creatinine cristina quite a bit after contrast and then after infection and then has fallen to close to her baseline. Volume overload seems better but not quite euvolemic yet. We will get a 24hour urine today and see how her creatinine clearance is. CT abdomen and pelvis did not show liver or retroperitoneal / pelvic processes that would cause the swelling. Continue diuretics. (2) Stage 3b chronic kidney disease: Code(s): N18.32 - Chronic kidney disease, stage 3b Status: Acute Assessment and Plan: The patient has a baseline creatinine of 1.6-2.0. creatinine was 2.1 as recently as in November and December. This is most likely due to hypertension and diabetes. (3) Acute hypoxemic respiratory failure: Code(s): J96.01 - Acute respiratory failure with hypoxia Status: Chronic Assessment and Plan: The patient seems better now. 3L of fluid was removed in dialysis yesterday. (4) Acute on chronic diastolic heart failure: Code(s): I50.33 - Acute on chronic diastolic (congestive) heart failure Status: Acute Assessment and Plan: Continue diuretics . Will also dry ultrafiltrate today. (5) Hypertension: Code(s): I10 - Essential (primary) hypertension Status: Chronic Assessment and Plan: systolic is better with less fluid. (6) Anemia: Code(s): D64.9 - Anemia, unspecified Status: Acute Assessment and Plan: Hemoglobin is low. On subcu Epogen. (7) Type 2 diabetes mellitus with hyperglycemia: Code(s): E11.65 - Type 2 diabetes mellitus with hyperglycemia Status: Chronic Assessment and Plan: on Accu-Cheks and sliding-scale insulin (8) Sepsis: Code(s): A41.9 - Sepsis, unspecified organism Status: Acute Assessment and Plan: blood cultures negative. Urine culture showed Klebsiella which is sensitive to all except ampicillin and cefazolin. on antibiotics Subjective Date/time seen: 02/26/22 10:10 Interval history: Gregoria is looking a little better today. She seems less short of breath. She is off oxygen. No chest pain. Exam Narrative: WDWN in NAD skin no rash head ncat lungs More air movement at the bases. Rare crackles. cor reg no rub or gallop abd BS+ nontender and soft ext 1-2+edema. Objective Data Vital Signs Vital Signs: Vital Signs - 24 hr 02/25/22 12:00 02/25/22 13:28 02/25/22 13:27 Temperature 36.6 C 36.6 C Pulse Rate 76 80 Respiratory Rate 24 H 20 Blood Pressure 188/54 H 188/78 H Pulse Oximetry 94 95 Oxygen Delivery Oxygen Flow Rate 2 02/25/22 13:33 02/25/22 13:45 02/25/22 14:00 Temperature Pulse Rate 78 78 75 Respiratory Rate Blood Pressure 185/67 H 172/58 H 103/73 Pulse Oximetry Oxygen Delivery Oxygen Flow Rate 02/25/22 14:15 02/25/22 14:30 02/25/22 14:45 Temperature Pulse Rate 77 85 80 Respiratory Rate Blood Pressure 125/73 147/61 H 135/65 Pulse Oximetry Oxygen Delivery Oxygen Flow Rate 02/25/22 15:00 02/25/22 15:15 02/25/22 15:30 Temperature Pulse Rate 74 75 73 Respiratory Rate Blood Pressure 144/60 H 143/65 H 132/67 Pulse Oximetry Oxygen Delivery Oxygen Flow Rate 02/25/22 15:34 02/25/22 15:50 02/25/22 12:00 Temperature 36.6 C Pulse Rate 72 76 76 Respiratory Rate 20 Blood Pressure 129/58 L 143/64 H Pulse Oximetry Oxygen Delivery Oxygen Flow Rate 02/25/22 12:00 02/25/22 16:00 02/25/22 14:00 Temperature 36.1 C L Pulse Rate 78 73 Respiratory Rate 24 H Blood Pressure 129/92 H Pulse Oximetry 95 99 Oxygen Delivery Nasal Cannula Oxygen Flow Rate 1 02/25/22 16:20 02/25/22 16:20
[2022-02-26 11:55] LABS: Glucose Point of Care 181 mg/dl (65-105)
[2022-02-26] MEDS: HEPARIN SOD/D5W 100 UNITS/ML 25,000 UNITS/250 ML BAG 17 UNITS IV CONT (12:33)
[2022-02-26] MEDS: ACETAMINOPHEN 325 MG TABLET 650 MG PO ×2 (14:14→22:57)
--- NOTE | 2022-02-26 15:32 | PM.IMPN ---
Progress Note: A&P Assessment and Plan (1) Acute hypoxemic respiratory failure: Code(s): J96.01 - Acute respiratory failure with hypoxia Status: Chronic Assessment and Plan: Acute multifactorial hypoxic Respiratory failure secondary to pulmonary edema from volume overload from renal failure and CHF, baseline COPD asthma overlap syndrome, obesity hypoventilation syndrome, RAINA, ? PE, ? Pneumonia oxygen supplementation via nasal cannula. Also placed on BiPAP intermittently for respiratory support. On hemodialysis for hypervolemia And worsened renal failure. Continue heparin infusion for DVT. CTA to rule out PE precluded by her renal failure and also it will not change coordinator at this point. Echocardiogram does not show any RV dilation or systolic dysfunction She is on steroids and bronchodilators which will be continued She is on broad-spectrum antibiotics in the form of vancomycin and imipenem although clinical picture is less supportive of pneumonia. A procalcitonin level was low at 0.3 MRSA screen came back negative. Blood culture 02/20/2022 negative to date Continue on imipenem. Leukocytosis persist. Continue to monitor (2) Acute on chronic diastolic heart failure: Code(s): I50.33 - Acute on chronic diastolic (congestive) heart failure Status: Acute Assessment and Plan: Echocardiogram 02/11 Summary ? 1. Complete two-dimensional, color flow and Doppler transthoracic echocardiogram is performed. ? 2. Left ventricular chamber dimension is normal. ? 3. Left ventricular systolic function is normal, estimated at 60-65%. ? 4. The left ventricular diastolic function is abnormal. ? 5. E/e' 18 is elevated. ? 6. Left atrial chamber dimension is moderately enlarged. ? 7. There is mild aortic valve sclerosis. ? 8. The mitral valve has mildly thickened leaflets and moderately calcified annulus. ? 9. There is mild mitral valve regurgitation. ? 10. There is trace tricuspid valve regurgitation. Continue hemodialysis to remove fluid She is on aspirin Plavix ARB and calcium channel mike. ARB is on hold due to renal dysfunction IV Bumex has been ordered per Nephrology's Still hypervolemic clinically Continue IV Bumex as ordered. Monitor renal function which remains stable /improving (3) Hypertension: Code(s): I10 - Essential (primary) hypertension Status: Chronic Assessment and Plan: Blood pressure is elevated and it could be secondary to respiratory distress Continue home ARB and calcium channel mike Patient has been placed on BiPAP and should continue on BiPAP at night ARB is on hold due to renal failure (4) Asthma-COPD overlap syndrome: Code(s): J44.9 - Chronic obstructive pulmonary disease, unspecified Status: Acute Assessment and Plan: Patient has history of smoking and was diagnosed with asthma in the past Patient evaluated by Pulmonary She is on bronchodilators and fluticasone (5) Sepsis: Code(s): A41.9 - Sepsis, unspecified organism Status: Acute Assessment and Plan: Secondary to UTI and possible pneumonia Cultures have been sent culture negative to date Urine cultures growing Klebsiella Patient is on vancomycin and imipenem. Stop vancomycin. Continue on imipenem Blood pressure is elevated (6) MARINA (acute kidney injury): Code(s): N17.9 - Acute kidney failure, unspecified Status: Acute Assessment and Plan: Patient has acute kidney injury over chronic kidney disease which is multifactorial Patient is being followed by Nephrology and has been started on dialysis continue hemodialysis per outside solar sales consultant Hemodialysis p.r.n. for hypervolemia Creatinine not yet back to her baseline but improving. Baseline creatinine is 1.5 to 1.6 (7) Stage 3b chronic kidney disease: Code(s): N18.32 - Chronic kidney disease, stage 3b Status: Acute (8) Anemia: Code(s): D64.9 - Anemia, unspecified Stat
[2022-02-26 17:00] LABS: Glucose Point of Care 150 mg/dl (65-105)
[2022-02-26] MEDS: APIXABAN 5 MG TABLET PO (20:19)
[2022-02-26] MEDS: INSULIN GLARGINE (*BKC) 100 UNITS/ML 50 UNITS SUB-Q (20:21)
[2022-02-26 20:24] LABS: Glucose Point of Care 152 mg/dl (65-105)
[2022-02-26 20:24] LABS: Glucose Point of Care 156 mg/dl (65-105)
[2022-02-26] MEDS: ALPRAZolam (*CRX) 0.5 MG TABLET PO (22:57)
[2022-02-27] VITALS (14 sets, daily range): BP systolic 143–170; BP diastolic 52–65; PULSE 66–88; RESP 16–24; TEMP 36.2–36.9; O2SAT 91–97
[2022-02-27 05:20] LABS: Creatinine Urine 42.5 mg/dL
[2022-02-27 05:24] LABS: Creatinine 24 Hour Urine 1.7 gm/24 (0.8-1.8); Total Volume 24 Hour Urine 4000 ml
[2022-02-27] MEDS: LEVOTHYROXINE SODIUM 100 MCG TABLET 200 MCG PO (05:56)
[2022-02-27] MEDS: CENTRAL LINE FLUSH 10 ML IV PUSH ×3 (06:14→17:34)
[2022-02-27 06:15] LABS: Basophils Absolute Auto 0.1 K/mm3 (0.0-0.1); Basophils Percent Auto 0.4 % (0.2-1.2); Eosinophils Absolute Auto 0.8 K/mm3 (0-0.3); Eosinophils Percent Auto 7.1 % (0-4.4); Hematocrit 24.3 % (37.0-47.0); Hemoglobin 7.5 g/dL (12.0-15.0); Immature Granulocyte Absolute 0.16 K/mm3 (0.00-0.031); Immature Granulocyte Percent A 1.4 % (0-0.5); Lymphocytes Absolute Auto 1.54 K/mm3 (0.9-3.2); Lymphocytes Percent Auto 13.8 % (18.3-44.2); Mean Corpuscular HGB Conc 30.9 g/dl (32-36); Mean Corpuscular Hemoglobin 27.1 pg (26-34); Mean Corpuscular Volume 87.7 fl (80-100); Mean Platelet Volume 9.5 fl (7.4-10.4); Monocytes Percent Auto 9.1 % (2.6-8.5); Neutrophils Absolute Auto 7.6 K/mm3 (1.3-6.7); Neutrophils Percent Auto 68.2 % (45.5-73.1); Platelet Count Result 333 k/mm3 (150-375); Red Blood Count 2.77 M/mm3 (4.2-5.4); White Blood Count 11.2 K/mm3 (4.5-10.0)
[2022-02-27 06:25] LABS: Partial Thromboplastin Time 39.9 SECONDS (22.3-36.8)
[2022-02-27 06:33] LABS: Alanine Aminotransferase 15 U/L (6-35); Alkaline Phosphatase 71 U/L (38-126); Anion Gap 11 mmol/L (8-16); Aspartate Amino Transferase 21 U/L (14-36); Bilirubin,Total 0.4 mg/dL (0.2-1.3); Blood Urea Nitrogen 50 mg/dL (7-17); Calcium 8.6 mg/dL (8.4-10.2); Carbon Dioxide 31 mmol/L (22-30); Chloride 97 mmol/L (98-107); Estimated CRCL calculation 32 ml/min; Estimated Glomerular Filt Rate 24; Glucose 92 mg/dL (65-110); Magnesium 1.5 mg/dL (1.6-2.3); Potassium 3.6 mmol/L (3.4-5.0); Sodium 139 mmol/L (137-145)
[2022-02-27] MEDS: CENTRAL LINE FLUSH 20 ML IV PUSH (06:38)
--- NOTE | 2022-02-27 07:03 | PM.PNNEP ---
Progress Note: A&P Assessment and Plan (1) MARINA (acute kidney injury): Code(s): N17.9 - Acute kidney failure, unspecified Status: Acute Assessment and Plan: the patient has acute kidney injury. Her creatinine cristina quite a bit after contrast and then after infection and then has fallen to close to her baseline. Volume overload seems better but not quite euvolemic yet. suddenly yesterday she made a lot of urine. The 24hour urine shows that her creatinine clearance is actually in the mid 40s. So her EGFR underestimates her kidney function rather than over estimating. Her creatinine is now at about baseline. She still has a lot of fluid. I will leave her on IV diuretics while she is here but from the kidney standpoint she can go any time on oral diuretics. I am not sure if she still needs the oxygen at night or not. (2) Stage 3b chronic kidney disease: Code(s): N18.32 - Chronic kidney disease, stage 3b Status: Acute Assessment and Plan: The patient has a baseline creatinine of 1.6-2.0. creatinine was 2.1 as recently as in November and December. This is most likely due to hypertension and diabetes. (3) Acute hypoxemic respiratory failure: Code(s): J96.01 - Acute respiratory failure with hypoxia Status: Chronic Assessment and Plan: Improved (4) Acute on chronic diastolic heart failure: Code(s): I50.33 - Acute on chronic diastolic (congestive) heart failure Status: Acute Assessment and Plan: Continue diuretics . change to oral diuretics at discharge. (5) Hypertension: Code(s): I10 - Essential (primary) hypertension Status: Chronic Assessment and Plan: Systolic in the 140s and 150s. She is on irbesartan, Verapamil, and her diuretics. As fluid comes off the blood pressure should improve. (6) Anemia: Code(s): D64.9 - Anemia, unspecified Status: Acute Assessment and Plan: Hemoglobin is low. On subcu Epogen. She should see Dr. Anthony as an outpatient to continue EPO dosing. (7) Type 2 diabetes mellitus with hyperglycemia: Code(s): E11.65 - Type 2 diabetes mellitus with hyperglycemia Status: Chronic Assessment and Plan: on Accu-Cheks and sliding-scale insulin (8) Sepsis: Code(s): A41.9 - Sepsis, unspecified organism Status: Acute Assessment and Plan: blood cultures negative. Urine culture showed Klebsiella which is sensitive to all except ampicillin and cefazolin. on antibiotics Subjective Date/time seen: 02/27/22 07:03 Interval history: Gregoria is looking better. She is not short of breath. She has been walking in the halls. She is not on oxygen during the day but she does get an oxygen bleed in for her CPAP machine at night. She is not normally on oxygen at home Exam Narrative: WDWN in NAD skin no rash head ncat lungs fairly clear cor reg no rub or gallop abd BS+ nontender and soft ext 1-2+edema bilaterally. Objective Data Vital Signs Vital Signs: Vital Signs - 24 hr 02/26/22 08:00 02/26/22 08:00 02/26/22 08:00 Temperature 36.6 C Pulse Rate 77 79 Respiratory Rate 20 Blood Pressure 166/51 H Pulse Oximetry 93 Oxygen Delivery Room Air Oxygen Flow Rate 02/26/22 10:00 02/26/22 12:00 02/26/22 12:00 Temperature 36.5 C Pulse Rate 81 85 78 Respiratory Rate 20 Blood Pressure 157/57 H Pulse Oximetry 95 Oxygen Delivery Oxygen Flow Rate 02/26/22 12:00 02/26/22 13:31 02/26/22 14:08 Temperature Pulse Rate 75 Respiratory Rate Blood Pressure Pulse Oximetry 96 Oxygen Delivery Room Air Room Air Oxygen Flow Rate 02/26/22 16:00 02/26/22 16:00 02/26/22 16:00 Temperature 36.6 C Pulse Rate 74 68 Respiratory Rate 16 Blood Pressure 158/46 H Pulse Oximetry 96 Oxygen Delivery Room Air Oxygen Flow Rate 02/26/22 18:31
[2022-02-27] MEDS: FLUTICASONE PROPIONATE 0.05% NA SPR 16 GM BTL (*BKC) 2 SPRAY NASAL (08:06)
[2022-02-27] MEDS: PANTOPRAZOLE SODIUM IV 40 MG VIAL IV PUSH ×2 (08:06→20:20)
[2022-02-27] MEDS: CYANOCOBALAMIN 1,000 MCG TABLET 2000 MCG PO (08:07)
[2022-02-27] MEDS: BUMETANIDE INJ 2.5 MG/10 ML VIAL 2 MG IV PUSH ×2 (08:07→18:28)
[2022-02-27] MEDS: APIXABAN 5 MG TABLET PO ×2 (08:07→20:20)
[2022-02-27] MEDS: CLOPIDOGREL BISULFATE 75 MG TABLET PO (08:08)
[2022-02-27] MEDS: GABAPENTIN 300 MG CAPSULE PO ×2 (08:08→18:28)
[2022-02-27] MEDS: VERAPAMIL HCL 180 MG TABLET ER 360 MG PO (08:08)
[2022-02-27] MEDS: MONTELUKAST SODIUM 10 MG TABLET PO (08:08)
[2022-02-27] MEDS: EPOETIN ALFA-EPBX 10,000 UNITS/ML VIAL 10000 UNITS SUB-Q (08:11)
[2022-02-27] MEDS: ALPRAZolam (*CRX) 0.5 MG TABLET PO (08:50)
[2022-02-27] MEDS: ACETAMINOPHEN 325 MG TABLET 650 MG PO (08:50)
[2022-02-27 08:53] LABS: Glucose Point of Care 85 mg/dl (65-105)
[2022-02-27] MEDS: INSULIN ASPART (*BKC) 100 UNITS/ML 15 UNITS SUB-Q ×2 (10:19→12:44)
[2022-02-27] MEDS: TOLNAFTATE 1% POWDER 45 GM BTL 1 APPLIC TOPICAL ×2 (10:20→20:21)
[2022-02-27] MEDS: FLUTICASONE/UMECLIDIN/VILANTER 200-62.5-25 MCG ELLIPTA 1 PUFF INHALATION (10:33)
--- NOTE | 2022-02-27 10:37 | PM.IMPN ---
Progress Note: A&P Assessment and Plan (1) Acute hypoxemic respiratory failure: Code(s): J96.01 - Acute respiratory failure with hypoxia Status: Chronic Assessment and Plan: Acute multifactorial hypoxic Respiratory failure secondary to pulmonary edema from volume overload from renal failure and CHF, baseline COPD asthma overlap syndrome, obesity hypoventilation syndrome, RAINA, ? PE, ? Pneumonia oxygen supplementation via nasal cannula. Also placed on BiPAP intermittently for respiratory support. On hemodialysis for hypervolemia And worsened renal failure. Continue heparin infusion for DVT. CTA to rule out PE precluded by her renal failure and also it will not telephone exchange operator at this point. Echocardiogram does not show any RV dilation or systolic dysfunction She is on steroids and bronchodilators which will be continued She is on broad-spectrum antibiotics in the form of vancomycin and imipenem although clinical picture is less supportive of pneumonia. A procalcitonin level was low at 0.3 MRSA screen came back negative. Blood culture 02/20/2022 negative to date Continue on imipenem day 6. Leukocytosis persist but improved now Continue to monitor (2) Acute on chronic diastolic heart failure: Code(s): I50.33 - Acute on chronic diastolic (congestive) heart failure Status: Acute Assessment and Plan: Echocardiogram 02/11 Summary ? 1. Complete two-dimensional, color flow and Doppler transthoracic echocardiogram is performed. ? 2. Left ventricular chamber dimension is normal. ? 3. Left ventricular systolic function is normal, estimated at 60-65%. ? 4. The left ventricular diastolic function is abnormal. ? 5. E/e' 18 is elevated. ? 6. Left atrial chamber dimension is moderately enlarged. ? 7. There is mild aortic valve sclerosis. ? 8. The mitral valve has mildly thickened leaflets and moderately calcified annulus. ? 9. There is mild mitral valve regurgitation. ? 10. There is trace tricuspid valve regurgitation. Continue hemodialysis to remove fluid She is on aspirin Plavix ARB and calcium channel mike. ARB is on hold due to renal dysfunction IV Bumex has been ordered per Nephrology's Still hypervolemic clinically Continue IV Bumex as ordered. Monitor renal function which remains stable /improving (3) Hypertension: Code(s): I10 - Essential (primary) hypertension Status: Chronic Assessment and Plan: Blood pressure is elevated and it could be secondary to respiratory distress Continue home ARB and calcium channel mike Patient has been placed on BiPAP and should continue on BiPAP at night ARB is on hold due to renal failure (4) Asthma-COPD overlap syndrome: Code(s): J44.9 - Chronic obstructive pulmonary disease, unspecified Status: Acute Assessment and Plan: Patient has history of smoking and was diagnosed with asthma in the past Patient evaluated by Pulmonary She is on bronchodilators and fluticasone (5) Sepsis: Code(s): A41.9 - Sepsis, unspecified organism Status: Acute Assessment and Plan: Secondary to UTI and possible pneumonia Cultures have been sent culture negative to date Urine cultures growing Klebsiella Patient is on vancomycin and imipenem. Stop vancomycin. Continue on imipenem Blood pressure is elevated (6) MARINA (acute kidney injury): Code(s): N17.9 - Acute kidney failure, unspecified Status: Acute Assessment and Plan: Patient has acute kidney injury over chronic kidney disease which is multifactorial Patient is being followed by Nephrology and has been started on dialysis continue hemodialysis per lithographic artist Hemodialysis p.r.n. for hypervolemia Creatinine back to her baseline but improving. Baseline creatinine is 1.5 to 1.6 no hd since sunday (7) Stage 3b chronic kidney disease: Code(s): N18.32 - Chronic kidney disease, stage 3b Status: Acute (8) Anemia: Code(s): D64
--- NOTE | 2022-02-27 11:39 | PCPTNOTE ---
Attempted to see patient for PT, however patient asked PT to come back due to patient giving herself a bed bath.
[2022-02-27 12:29] LABS: Glucose Point of Care 166 mg/dl (65-105)
--- NOTE | 2022-02-27 16:02 | PM.PNPUL ---
Progress Note: A&P Assessment and Plan (1) Asthma-COPD overlap syndrome: Code(s): J44.9 - Chronic obstructive pulmonary disease, unspecified Status: Acute Assessment and Plan: She has asthma diagnosed at age 16, 37 pack year history of tobacco use; CT angiogram of the chest on 02/11/2022 does not show any evidence of bullous emphysema. She is morbidly obese and she may have undiagnosed obstructive sleep apnea. She has intermittent wheezing throughout the hospitalization and is currently being treated for an asthma COPD exacerbation with? steroids started on 02/11/2022, weaned off, has wheezing today which may be from pulmonary edema. She is on albuterol 5 mg nebulized q.6 hours, ipratropium 0.5 mg nebulized Q 6 hours and Advair 45-21 at 2 puffs q.12 hours. As an outpatient she was uncontrolled on Step 2 therapy with daily rescue albuterol use. ? I will continue albuterol 2.5 mg nebulized q.6 hours, ipratropium 0.5 mg nebulized Q 6 hours? and nebulized budesonide 0.5 mg b.i.d.. ? If she is stable tomorrow off of the steroids I will? discontinue her nebulizers and change her to inhaled trelegy 200/62.5/25 at 1 puff Q day. Regarding her BiPAP use the patient feels that she can breathe without BiPAP tonight and I will discontinue the BiPAP.? I will place the patient on 2 L nasal cannula and perform an overnight oximetry. ? Of note she has no evidence of hypercarbic respiratory failure with her admission blood gas 7.28/41/40. 02/16 ? The patient wore 2 L nasal cannula last night and sled that she slept well.? She has dyspnea on exertion but no shortness of breath at rest.? ? She states her breathing is no different than yesterday. Her white blood cell count is 13.8.? Creatinine is 5.3.? She is on room air with saturations 98%.? Patient had an overnight oximetry on 2 L nasal cannula with the average saturation of 99%.? Lowest saturation was 95%.? Time with saturation less than or equal to 88% was 0 minutes.? She has no wheezing on exam. 02/17? patient was on room air overnight and slept well.? States that her breathing at rest is without issues she does have some dyspnea on exertion.? Currently she is on room air with saturations 95%.? Creatinine is 4.4, BUN is 138 and per the bedside nurse the plan is to initiate hemodialysis today.? Patient had an unsuccessful? overnight oximetry is no data was recorded. ? She has no wheezing on exam. 02/23 On 40%, less short of breath, getting PT and OT. Not as short of breath with exertion. 02/24 on 40%, wants to try APAP with sleep. 02/25 on ROOM AIR; ? Slept very well with a PAP last night and supplemental oxygen.? We will try to arrange this for her to use at home.? She does not want to go to rehab which is understandable but if she goes it may help her out quite a bit especially with therapy.? Using APAP may help her with perfusion, volume control, weight loss. 02/27 Patient has no wheezes and states she is back to normal on Trelegy 200/62.09/28 @ 1 puff q.day, and has been changed to Augmentin 875-125 at 1 tablet p.o. q.12 hours. I will order an overnight oximetry on room air today and if her saturations are less than 88% for greater than 5 minutes she will qualify for supplemental oxygen at night. if patient remains clinically stable tonight she will be ready for discharge on 02/28 on these pulmonary medicines: Augmentin 875-125 PO BID to finish 10 days total of antibiotics Trelegy 200/62.09/28 ? At 1 puff q.day ?rescue albuterol 2 puffs q.4 hours p.r.n. wheezing and shortness of breath ?oxygen at rest and with ambulation per formal home O2 assessment on 02/28 ( I placed order for 02/28/22) ?Oxygen at night as dictated by the overnight oximetry. Follow up in the Pulmonary Clinic in 3 weeks, she will need an outpatient sleep study to assess for obstructive sleep apnea. I gave her our business card and informed our marine steam fitter Discussed with Dr. Macedo, will sign off, call with questions. Subjec
[2022-02-27 17:18] LABS: Glucose Point of Care 75 mg/dl (65-105)
[2022-02-27] MEDS: INSULIN ASPART (*BKC) 100 UNITS/ML 7 UNITS SUB-Q (17:54)
[2022-02-27] MEDS: AMOXICILLIN/CLAVULANATE K 875-125 MG TAB 1 TABLET PO (20:20)
[2022-02-27] MEDS: INSULIN GLARGINE (*BKC) 100 UNITS/ML 40 UNITS SUB-Q (20:21)
[2022-02-27 20:42] LABS: Glucose Point of Care 159 mg/dl (65-105)
[2022-02-28] VITALS (10 sets, daily range): BP systolic 154–174; BP diastolic 52–79; PULSE 72–96; RESP 16–20; TEMP 36.5–36.7; O2SAT 90–99
[2022-02-28] MEDS: ALPRAZolam (*CRX) 0.5 MG TABLET PO (00:06)
[2022-02-28 06:21] LABS: Basophils Absolute Auto 0.1 K/mm3 (0.0-0.1); Basophils Percent Auto 0.6 % (0.2-1.2); Eosinophils Absolute Auto 0.7 K/mm3 (0-0.3); Eosinophils Percent Auto 6.9 % (0-4.4); Hematocrit 25.1 % (37.0-47.0); Hemoglobin 7.7 g/dL (12.0-15.0); Immature Granulocyte Absolute 0.11 K/mm3 (0.00-0.031); Immature Granulocyte Percent A 1.1 % (0-0.5); Lymphocytes Absolute Auto 1.53 K/mm3 (0.9-3.2); Mean Corpuscular HGB Conc 30.7 g/dl (32-36); Mean Corpuscular Hemoglobin 26.2 pg (26-34); Mean Corpuscular Volume 85.4 fl (80-100); Mean Platelet Volume 9.5 fl (7.4-10.4); Monocytes Absolute Auto 0.9 K/mm3 (0.1-0.6); Monocytes Percent Auto 8.4 % (2.6-8.5); Platelet Count Result 374 k/mm3 (150-375); Red Blood Count 2.94 M/mm3 (4.2-5.4); Red Cell Distribution Width 17.2 % (11.5-14.5); White Blood Count 10.2 K/mm3 (4.5-10.0)
[2022-02-28] MEDS: LEVOTHYROXINE SODIUM 100 MCG TABLET 200 MCG PO (06:24)
[2022-02-28 06:34] LABS: Alanine Aminotransferase 15 U/L (6-35); Albumin Level 3.2 g/dL (3.5-5.1); Alkaline Phosphatase 75 U/L (38-126); Anion Gap 9 mmol/L (8-16); Aspartate Amino Transferase 21 U/L (14-36); Bilirubin,Total 0.5 mg/dL (0.2-1.3); Blood Urea Nitrogen 48 mg/dL (7-17); Calcium 8.7 mg/dL (8.4-10.2); Carbon Dioxide 31 mmol/L (22-30); Chloride 99 mmol/L (98-107); Estimated CRCL calculation 30 ml/min; Estimated Glomerular Filt Rate 23; Glucose 167 mg/dL (65-110); Magnesium 1.5 mg/dL (1.6-2.3); Phosphorus 3.7 mg/dL (2.5-4.5); Potassium 4.3 mmol/L (3.4-5.0); Sodium 139 mmol/L (137-145)
[2022-02-28 07:07] LABS: Hypochromasia 1+ (NORMAL); Platelet Clumps Present; Poikilocytosis 1+ (NORMAL)
[2022-02-28 07:08] LABS: Anisocytosis 1+ (NORMAL); Schistocytes None Seen (NORMAL)
[2022-02-28] MEDS: FLUTICASONE/UMECLIDIN/VILANTER 200-62.5-25 MCG ELLIPTA 1 PUFF INHALATION (08:15)
[2022-02-28 08:58] LABS: Glucose Point of Care 187 mg/dl (65-105)
[2022-02-28] MEDS: FLUTICASONE PROPIONATE 0.05% NA SPR 16 GM BTL (*BKC) 2 SPRAY NASAL (09:08)
[2022-02-28] MEDS: VERAPAMIL HCL 180 MG TABLET ER 360 MG PO (09:08)
[2022-02-28] MEDS: GABAPENTIN 300 MG CAPSULE PO (09:09)
[2022-02-28] MEDS: MONTELUKAST SODIUM 10 MG TABLET PO (09:09)
[2022-02-28] MEDS: APIXABAN 5 MG TABLET PO (09:09)
[2022-02-28] MEDS: CLOPIDOGREL BISULFATE 75 MG TABLET PO (09:09)
[2022-02-28] MEDS: AMOXICILLIN/CLAVULANATE K 875-125 MG TAB 1 TABLET PO (09:09)
[2022-02-28] MEDS: MAGNESIUM OXIDE 200 MG TABLET PO (09:10)
[2022-02-28] MEDS: PANTOPRAZOLE 40 MG TABLET PO (09:10)
[2022-02-28] MEDS: TOLNAFTATE 1% POWDER 45 GM BTL 1 APPLIC TOPICAL (09:10)
[2022-02-28] MEDS: INSULIN ASPART (*BKC) 100 UNITS/ML 10 UNITS SUB-Q ×2 (09:11→12:41)
[2022-02-28] MEDS: BUMETANIDE INJ 2.5 MG/10 ML VIAL 2 MG IV PUSH (09:24)
--- NOTE | 2022-02-28 10:51 | HOMEO2EVAL ---
Evaluation was performed at [facility] Home Oxygen Evaluation RC: Home Oxygen (O2) Evaluation Start: 02/28/22 07:56 Freq: ONCE Status: Active Protocol: RPE Activity Type Activity Date Activity User E-sign Co-sign Detail Recorded Client Recorded Date Recorded By Document 02/28/22 10:15 LIGIA [id number] 02/28/22 10:39 LIGIA Document 02/28/22 10:20 LIGIA RT_012 02/28/22 10:39 LIGIA Document 02/28/22 10:30 LIGIA [id number] 02/28/22 10:39 LIGIA 02/28/22 02/28/22 02/28/22 10:15 10:20 10:30 Home O2 Evaluation [Oxygen] -Test Phase Resting Exercise Resting -Oxygen Delivery Room Air Room Air Room Air [Pulse Oximetry] -Pulse Oximetry (90-100 %) 93 90 92 [Pulse Rate] -Pulse Rate (60-100 beats/min) 78 96 72 [Exercise] -Ambulation Distance (feet) 75 -Ambulation Distance (meters) 22.85 [Comments] -Home Oxygen Evaluation Comments Home O2 not needed at this time with rest or exertion [Charges] -Treatment Charges O2 Evaluation - Inpatient
[2022-02-28 12:21] LABS: Glucose Point of Care 227 mg/dl (65-105)
[2022-02-28] MEDS: CYANOCOBALAMIN 1,000 MCG TABLET 2000 MCG PO (12:41)
[2022-02-28] MEDS: INSULIN ASPART (*BKC) 100 UNITS/ML SUB-Q (12:41)
--- NOTE | 2022-02-28 12:47 | PM.DS ---
DS: Admitting Diagnosis Discharge Date 02/28/2022 Admitting Diagnosis Shortness of breath DS: Discharge Diagnosis Discharge Diagnosis (1) Acute hypoxemic respiratory failure: Code(s): J96.01 - Acute respiratory failure with hypoxia Status: Chronic (2) Acute on chronic diastolic heart failure: Code(s): I50.33 - Acute on chronic diastolic (congestive) heart failure Status: Acute (3) Hypertension: Code(s): I10 - Essential (primary) hypertension Status: Chronic (4) Asthma-COPD overlap syndrome: Code(s): J44.9 - Chronic obstructive pulmonary disease, unspecified Status: Acute (5) Sepsis: Code(s): A41.9 - Sepsis, unspecified organism Status: Acute (6) MARINA (acute kidney injury): Code(s): N17.9 - Acute kidney failure, unspecified Status: Acute (7) Stage 3b chronic kidney disease: Code(s): N18.32 - Chronic kidney disease, stage 3b Status: Acute (8) Anemia: Code(s): D64.9 - Anemia, unspecified Status: Acute (9) Hypothyroid: Code(s): E03.9 - Hypothyroidism, unspecified Status: Acute (10) DVT (deep venous thrombosis): Code(s): I82.409 - Acute embolism and thrombosis of unspecified deep veins of unspecified lower extremity Status: Acute (11) RAINA (obstructive sleep apnea): Code(s): G47.33 - Obstructive sleep apnea (adult) (pediatric) Status: Acute (12) GERD without esophagitis: Code(s): K21.9 - Gastro-esophageal reflux disease without esophagitis Status: Acute (13) Type 2 diabetes mellitus with hyperglycemia: Code(s): E11.65 - Type 2 diabetes mellitus with hyperglycemia Status: Chronic (14) UTI (urinary tract infection): Code(s): N39.0 - Urinary tract infection, site not specified Status: Acute DS: Summary Hospital Course Hospital Course: # acute hypoxic respiratory failure: Acute multifactorial hypoxic Respiratory failure secondary to pulmonary edema from volume overload from CHF, later in conjunction with renal failure. See has baseline COPD asthma overlap syndrome, obesity hypoventilation syndrome, RAINA,. She was also noted to have evidence of pneumonia which was treated. Possible PE. She was initially treated with?oxygen supplementation via nasal cannula.? But later needed to be placed on BiPAP intermittently for respiratory support in the ICU setting. She did not require intubation. She was started on hemodialysis for hypervolemia?along with worsened renal failure. She was also noted to have left leg DVT. For which she was started on heparin infusion. CTA to rule out PE precluded by her renal failure and also it will not manager change at this point.? Echocardiogram does not show any RV dilation or systolic dysfunction She was on steroids and bronchodilators for treatment for her pneumonia and COPD She was started on broad-spectrum antibiotics in the form of vancomycin and imipenem although clinical picture is less supportive of pneumonia.? A procalcitonin level was low at 0.3. Follow-up CT does show evidence of pneumonia in her right lower lobe. MRSA screen came back negative.? Blood culture 02/20/2022? negative to date. Vancomycin was discontinued after a MRSA screen came back negative She was continued on imipenem and was later switched to Augmentin. She will continue Augmentin at discharge complete 2 weeks course of antibiotics for her pneumonia. Leukocytosis also improved with treatment. # acute on chronic diastolic heart failure: Echocardiogram 02/11 Summary ? 1. Complete two-dimensional, color flow and Doppler transthoracic echocardiogram is performed. ? 2. Left ventricular chamber dimension is normal. ? 3. Left ventricular systolic function is normal, estimated at 60-65%. ? 4. The left ventricular diastolic function is abnormal. ? 5. E/e' 18 is elevated. ? 6. Left atrial chamber dimension is moderately enlarged. ? 7. There is mild aortic valv
--- NOTE | 2022-02-28 14:18 | PCRCNOTE ---
Nocturnal home O2 will be set up with [facility]. Contact Millicent with DME [phone]. They are aware pt is d/c today and will follow up with her JOSEPHINE
[2022-03-02 18:03] LABS: Complement Total CH50 >60 U/mL (31-60)
[2022-03-04 13:06] LABS: Kappa\\Lambda Light Chains 1.44 (0.26-1.65); Lambda Light Chain 54.8 mg/L (5.7-26.3)
[2022-03-05 15:21] LABS: Albumin 58 %; Measured Kappa Chains 1.47 mg/dL (<2.00); Measured Lambda Chains <1.00 mg/dL (<2.00); Pro/Creat Ratio 799 mg/g creat (<150)
[2022-03-10 14:05] LABS: Protein,total, 24 Hr Ur 1082 mg/24h
== END 2022-02-28 16:25 | disposition home health service (06) | DRG 291 ==
LOC: ANHED 23:32 → ANHIMU 02-11 00:41 → ANHICU 02-20 08:49 → ANHIMU 02-24 14:20 → ANH2MED 02-27 15:32
PROVIDERS: Internal Medicine; Internal Medicine Nephrology; Internal Medicine Pulmonary Disease; Nurse Practitioner; Student in an Organized Health Care Education/Training Program; Admitting Provider Internal Medicine; Emergency Provider Family Medicine; PCP Family Medicine; Visit Provider Internal Medicine
DX: I13.0 Hypertensive heart and chronic kidney disease with heart failure and stage 1 through stage 4 chronic kidney disease, or unspecified chronic kidney disease (principal); A41.9 Sepsis, unspecified organism; I50.33 Acute on chronic diastolic (congestive) heart failure; J96.01 Acute respiratory failure with hypoxia; J18.9 Pneumonia, unspecified organism; N39.0 Urinary tract infection, site not specified; N17.9 Acute kidney failure, unspecified; J44.0 Chronic obstructive pulmonary disease with (acute) lower respiratory infection; Z68.42 Body mass index [BMI] 45.0-49.9, adult; E87.1 Hypo-osmolality and hyponatremia; E87.20 Acidosis, unspecified; J44.1 Chronic obstructive pulmonary disease with (acute) exacerbation; I82.412 Acute embolism and thrombosis of left femoral vein; I82.432 Acute embolism and thrombosis of left popliteal vein; E66.2 Morbid (severe) obesity with alveolar hypoventilation; E11.22 Type 2 diabetes mellitus with diabetic chronic kidney disease; N18.32 Chronic kidney disease, stage 3b; B96.1 Klebsiella pneumoniae [K. pneumoniae] as the cause of diseases classified elsewhere; E11.65 Type 2 diabetes mellitus with hyperglycemia; E03.9 Hypothyroidism, unspecified; K21.9 Gastro-esophageal reflux disease without esophagitis; F41.1 Generalized anxiety disorder; D63.1 Anemia in chronic kidney disease; M17.12 Unilateral primary osteoarthritis, left knee; E11.42 Type 2 diabetes mellitus with diabetic polyneuropathy; I25.10 Atherosclerotic heart disease of native coronary artery without angina pectoris; F32.A Depression, unspecified; G25.81 Restless legs syndrome; Z79.82 Long term (current) use of aspirin; Z79.4 Long term (current) use of insulin; Z86.73 Personal history of transient ischemic attack (TIA), and cerebral infarction without residual deficits; Z87.891 Personal history of nicotine dependence
CPT/HCPCS: 36415; 36430; 36600; 51702; 71045; 71275; 74176; 76775; 80048; 80053; 80069; 80202; 81001; 81050; 82274; 82375; 82565; 82570; 82805; 82948; 83036; 83050; 83605; 83735; 83880; 83883; 84100; 84145; 84156; 84300; 84439; 84443; 84484; 84540; 85014; 85018; 85025; 85027; 85380; 85610; 85652; 85730; 86038; 86140; 86160; 86162; 86334; 86335; 86704; 86706; 86850; 86900; 86901; 86920; 87040; 87077; 87081; 87086; 87088; 87186; 87340; 93005; 93306; 93970; 94002; 94003; 94618; 94640; 94660; 94762; 96374; 96375; 97110; 97116; 97162; 97165; 97530; 97535; 99285; A9270; C1752; C9113; G0257; J0360; J0743; J1644; J1650; J1815; J1940; J2060; J2270; J2405; J2920; J2930; J3370; J3475; J7030; J7050; J7512; P9016; Q5105; Q9967

== ENCOUNTER 2022-03-07 10:03 | Outpatient (CLI) | payer MEDICARE, SELFPAY ==
[2022-03-07 10:19] LABS: Basophils Absolute Auto 0.1 K/mm3 (0.0-0.1); Basophils Percent Auto 0.8 % (0.2-1.2); Eosinophils Absolute Auto 0.6 K/mm3 (0-0.3); Eosinophils Percent Auto 7.1 % (0-4.4); Hemoglobin 8.5 g/dL (12.0-15.0); Immature Granulocyte Absolute 0.05 K/mm3 (0.00-0.031); Immature Granulocyte Percent A 0.6 % (0-0.5); Lymphocytes Absolute Auto 1.63 K/mm3 (0.9-3.2); Mean Corpuscular HGB Conc 29.3 g/dl (32-36); Mean Corpuscular Hemoglobin 26.7 pg (26-34); Mean Corpuscular Volume 91.2 fl (80-100); Mean Platelet Volume 9.3 fl (7.4-10.4); Monocytes Absolute Auto 0.8 K/mm3 (0.1-0.6); Monocytes Percent Auto 8.5 % (2.6-8.5); Neutrophils Absolute Auto 5.9 K/mm3 (1.3-6.7); Platelet Count Result 509 k/mm3 (150-375); Red Blood Count 3.18 M/mm3 (4.2-5.4); Red Cell Distribution Width 17.3 % (11.5-14.5); White Blood Count 9.1 K/mm3 (4.5-10.0)
[2022-03-07 10:36] LABS: Alanine Aminotransferase 15 U/L (6-35); Albumin Level 3.8 g/dL (3.5-5.1); Alkaline Phosphatase 81 U/L (38-126); Anion Gap 12 mmol/L (8-16); Aspartate Amino Transferase 18 U/L (14-36); Bilirubin,Total 0.5 mg/dL (0.2-1.3); Blood Urea Nitrogen 37 mg/dL (7-17); Calcium 8.4 mg/dL (8.4-10.2); Carbon Dioxide 27 mmol/L (22-30); Chloride 100 mmol/L (98-107); Estimated Glomerular Filt Rate 22; Glucose 172 mg/dL (65-110); Potassium 4.1 mmol/L (3.4-5.0); Sodium 139 mmol/L (137-145)
== END 2022-03-07 10:04 | disposition home or self-care (01) ==
PROVIDERS: PCP Family Medicine; Visit Provider Internal Medicine
DX: R19.5 Other fecal abnormalities (principal); I50.33 Acute on chronic diastolic (congestive) heart failure
CPT/HCPCS: 36415; 80053; 85025

== ENCOUNTER 2022-03-12 04:22 | Emergency (ER) | payer MEDICARE, SELFPAY ==
[2022-03-12] VITALS (21 sets, daily range): BP systolic 122–156; BP diastolic 52–133; PULSE 77–88; RESP 16–31; TEMP 36.6; O2SAT 88–100
--- NOTE | ~2022-03-12 | XR_ITS ---
XR knee LT min 4V DATE: 03/12/2022 06:49 INDICATION: Knee pain TECHNIQUE: 4 views including crosstable lateral COMPARISON: None FINDINGS: There is prominent suprapatellar knee joint effusion. There is tricompartment moderate to moderately severe osteoarthritis. No fracture or dislocation, periosteal reaction or bone destruction. Osteopenia. Prominent femoral and popliteal and trifurcation artery calcifications. IMPRESSION: Suprapatellar knee joint effusion Moderate to moderately severe tricompartment osteoarthritis Osteopenia Prominent arterial calcification Reviewed, dictated and finalized at location A. RUCTIONAL LEADER
--- NOTE | ~2022-03-12 | CT_ITS ---
EXAMINATION: CT brain wo con DATE: 03/12/2022 06:33 INDICATION: Patient fell out of bed and struck head. Patient on anticoagulant therapy. TECHNIQUE: Computed tomography (CT) of the head was performed without intravenous contrast. The mA wa s adjusted according to patient size. Iterative reconstruction technique was employed. Exam dose: 60 5.33 mGy-cm total exam DLP. COMPARISON: 10/25/2019 CT brain FINDINGS: Vertebral, basilar and carotid siphon and supraclinoid internal carotid artery calcificatio ns. There is chronic patchy diminished attenuation of the cerebral white matter bilaterally, likely d ue to chronic small vessel ischemic changes. No intracranial mass lesion or hemorrhage or recent cerebrovascular accident is noted. No midline jorge ft or mass effect. No subdural or epidural hematoma. No fracture or bone destruction of the cranial vault. No significant abnormality of the paranasal sin uses or mastoid air cells. IMPRESSION: Cerebral atherosclerosis and chronic small vessel ischemic changes of cerebral white mat ter No acute intracranial finding or significant change since 10/25/2019 Reviewed, dictated and finalized at [facility]. Reviewed, dictated and finalized at location [facility]. NARY ASSISTANT IMPRESSION: Cerebral atherosclerosis and chronic small vessel ischemic changes of cerebral white matter No acute intracranial finding or significant change since 10/25/2019
[2022-03-12] MEDS: HYDROcodone/acetaminophen (*CRX) 5-325 MG TABLET 1 TAB PO (05:58)
--- NOTE | 2022-03-12 05:58 | ED.GENADULT ---
HPI - General Adult General Chief complaint: Fall Stated complaint: fall out of bed and left knee pain Time Seen by Provider: 03/12/22 04:34 History of Present Illness HPI narrative: this is a 71-year-old female presenting ED after she fell out of bed last night. The patient was sleeping and rolled over in bed and landed on the floor. She struck her head. She did not lose consciousness. She does take Xarelto and Plavix due to a recently diagnosed DVT. Patient also has a small cut on the outside of her left ear. Patient also complaining of left knee pain with a small abrasion over the kneecap. She denies any other complaints this time. Related Data Home Medications Medication Instructions Recorded Confirmed cyanocobalamin (vitamin B-12) 2,000 mcg PO DAILY 03/19/19 02/11/22 2,000 mcg tablet,extended release (Vitamin B-12 ER) fluticasone propionate 50 2 spray intranasal DAILY 03/19/19 02/11/22 mcg/actuation nasal spray,suspension insulin glargine 100 unit/mL (3 50 unit subcut HS 07/04/21 02/11/22 mL) subcutaneous pen (Lantus Solostar U-100 Insulin) montelukast 10 mg tablet 10 mg PO QAM 11/22/21 02/11/22 albuterol sulfate 90 mcg/actuation 2 puff inhalation QID 02/11/22 02/11/22 aerosol inhaler (Ventolin HFA) insulin aspart U-100 100 unit/mL 10 - 30 sliding scale dose subcut 02/11/22 02/11/22 (3 mL) subcutaneous pen (Novolog TIDWM Flexpen U-100 Insulin aspart) levothyroxine 200 mcg tablet 200 mcg PO DAILY 02/11/22 02/11/22 (Synthroid) verapamil 360 mg 24 hr 360 mg PO DAILY 02/11/22 02/11/22 capsule,extended release Allergies Allergy/AdvReac Type Severity Reaction Status Date / Time diphenhydramine Allergy Unknown restless Verified 03/12/22 04:30 legs nickel Allergy Unknown hives and Verified 03/12/22 04:30 itchy rash nifedipine Allergy Unknown palpitation Verified 03/12/22 04:30 s Sulfa (Sulfonamide Allergy Unknown Urticaria Verified 03/12/22 04:30 Antibiotics) and hives Ycoahvs-SWD-CgD Reductase AdvReac Intermediate muscle Verified 03/12/22 04:30 Inhibitor cramps [Mtmtjpa-Edv-Zpd Reductase Inhibitor] CALCIUMCHANNEL AdvReac Unknown SEE COMMIT Uncoded 03/12/22 04:30 Review of Systems Review of Systems: CONSTITUTIONAL: Denies night sweats. EYES: No eye pain ENT: Denies rhinorrhea CARDIOVASCULAR: Denies palpitations RESPIRATORY: Denies hemoptysis GASTROINTESTINAL: Denies hematemesis GENITOURINARY: Denies hematuria. SKIN: Denies rash MUSCULOSKELETAL: Denies myalgia. NEUROLOGIC: Denies weakness. PSYCHIATRIC: Denies delusions [facility] Past Medical History Medical History 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 Chronic diastolic (congestive) heart failure Chronic kidney disease, stage 3 unspecified Chronic kidney disease, stage III (moderate) COPD (chronic obstructive pulmonary disease) Coronary artery disease involving [place] heart without angina pectoris Depression DVT (deep venous thrombosis) ARACELY (generalized anxiety disorder) GERD without esophagitis History of stroke Hypertensive heart disease with heart failure and stage 3 chronic kidney disease Hypothyroid Left knee DJD Long-term insulin use Peripheral polyneuropathy Pre-ulcerative calluses Sepsis Type 2 diabetes mellitus with hyperglycemia Family History Family History Father Hypertension Family history of coronary artery disease Sibling Hypertension Family history of coronary artery disease Mother Cerebrovascular accident Other Asthma Depression Family history of Alzheimer's disease Family history of arthritis Family history of cardiovascular disease Family history of lymphoma Family history of obesity Family history of seizure disorder Social History Social History Smoking packs per day: 2 Smoking cigare
--- NOTE | 2022-03-12 07:07 | PC.NURSE ---
Report given to BOB Nelson.
[2022-03-12] MEDS: TETANUS,DIPHTHERIA,AC PERTUSSIS ADULT (0.5 ML) BOOSTRIX IM (08:07)
== END 2022-03-12 08:26 | disposition home or self-care (01) ==
PROVIDERS: Emergency Provider Emergency Medicine; PCP Family Medicine
DX: S80.212A Abrasion, left knee, initial encounter (principal); S01.01XA Laceration without foreign body of scalp, initial encounter; Z23 Encounter for immunization; I13.0 Hypertensive heart and chronic kidney disease with heart failure and stage 1 through stage 4 chronic kidney disease, or unspecified chronic kidney disease; E11.22 Type 2 diabetes mellitus with diabetic chronic kidney disease; N18.30 Chronic kidney disease, stage 3 unspecified; I50.32 Chronic diastolic (congestive) heart failure; E11.42 Type 2 diabetes mellitus with diabetic polyneuropathy; J44.9 Chronic obstructive pulmonary disease, unspecified; I25.10 Atherosclerotic heart disease of native coronary artery without angina pectoris; K22.70 Barrett's esophagus without dysplasia; K21.9 Gastro-esophageal reflux disease without esophagitis; M17.12 Unilateral primary osteoarthritis, left knee; Z86.718 Personal history of other venous thrombosis and embolism; Z79.4 Long term (current) use of insulin; Z79.01 Long term (current) use of anticoagulants; Z79.02 Long term (current) use of antithrombotics/antiplatelets; Z87.891 Personal history of nicotine dependence; W06.XXXA Fall from bed, initial encounter
CPT/HCPCS: 70450; 73564; 90471; 90715; 99284; A9270

== ENCOUNTER 2022-03-17 02:25 | Inpatient (IN) | payer MEDICARE, SELFPAY ==
[2022-03-17] VITALS (15 sets, daily range): BP systolic 140–164; BP diastolic 50–85; PULSE 73–104; RESP 16–22; TEMP 35.6–36.9; O2SAT 97–100; BMI 49.0
--- NOTE | ~2022-03-17 | XR_ITS ---
EXAMINATION: XR chest port-a-cath/central INDICATION: Tunnel dialysis catheter insertion TECHNIQUE: Portable AP chest at 1550 hours COMPARISON: 03/17/2022 FINDINGS: A right internal jugular tunneled dialysis catheter ends with its tip in the proximal right atrium. Cardiomegaly is noted. There is a diffuse interstitial pattern. Airspace opacities are prese nt in the lung bases. There is no pneumothorax. IMPRESSION: 1. Right internal jugular tunneled dialysis catheter ending with its tip in the proximal right atrium . 2. Cardiomegaly with moderate pulmonary edema. 3. Bibasilar airspace opacities, consistent with atelectasis and/or pneumonia and/or small pleural ef fusions. Reviewed, dictated and finalized at location F. MANAGER IMPRESSION: 1. Right internal jugular tunneled dialysis catheter ending with its tip in the proximal right atrium. 2. Cardiomegaly with moderate pulmonary edema. 3. Bibasilar airspace opacities, consistent with atelectasis and/or pneumonia a nd/or small pleural effusions.
--- NOTE | ~2022-03-17 | XR_ITS ---
EXAMINATION: XR fl guide central line place INDICATION: Tunneled dialysis catheter insertion TECHNIQUE: Two intraoperative fluoroscopic images are submitted for review. Total fluoroscopic time w as 14.1 seconds. COMPARISON: None available FINDINGS: Fluoroscopic images demonstrate a right internal jugular dialysis catheter ending in the di stal superior vena cava. The catheter appears to be kinked at the skin surface. IMPRESSION: 1. Right internal jugular dialysis catheter insertion. Please refer to procedure note for full detail s. Reviewed, dictated and finalized at location F. T RANGE AIR DEFENSE ARTILLERY IMPRESSION: 1. Right internal jugular dialysis catheter insertion. Please refer to procedur e note for full details.
--- NOTE | ~2022-03-17 | CT_ITS ---
EXAMINATION: CT brain wo con DATE: 03/18/2022 15:56 INDICATION: Unwitnessed fall prior to admission TECHNIQUE: Computed tomography (CT) of the head was performed without intravenous contrast. The mA wa s adjusted according to patient size. Iterative reconstruction technique was employed. Exam dose: 83 2.33 mGy-cm total exam DLP. COMPARISON: 03/12/2022 CT brain FINDINGS: Prominent bilateral vertebral artery and prominent bilateral carotid siphon and supraclinoid internal carotid artery calcifications. There is prominent patchy diminished attenuation of the cerebral white matter, likely due to chronic small vessel ischemic changes. No intracranial mass lesion or hemorrhage or recent cerebrovascular accident is evident. No midline s hift or mass effects. No subdural or epidural hematoma. The mastoid air cells are not well-developed. Included paranasal sinuses are unremarkable. No fracture or bone destruction of the cranial vault. IMPRESSION: Cerebral atherosclerosis and chronic small vessel ischemic changes of the cerebral white matter No acute intracranial finding or skull fracture or significant change since (2021 Reviewed, dictated and finalized at Location A. Reviewed, dictated and finalized at location A. EW TRAINER
--- NOTE | ~2022-03-17 | XR_ITS ---
EXAMINATION: XR chest 1V portable INDICATION: Shortness of breath TECHNIQUE: Portable AP chest at 0250 hours COMPARISON: 02/24/2022 FINDINGS: Cardiomegaly is noted. There are small pleural effusions, left greater than right. A mild d iffuse interstitial pattern is present. No pneumothorax is identified. There are minimal airspace opa cities of the lung bases. IMPRESSION: 1. Cardiomegaly with probable mild pulmonary edema. 2. Small pleural effusions with associated bibasilar airspace opacity, likely atelectasis. Reviewed, dictated and finalized at location B. OROLOGICAL EQUIPMENT REPAIRER IMPRESSION: 1. Cardiomegaly with probable mild pulmonary edema. 2. Small pleural effusions with associated bibasilar airspace opacity, likely a telectasis.
--- NOTE | 2022-03-17 02:50 | ED.GENADULT ---
HPI - General Adult General Chief complaint: Shortness of Breath/Dyspnea Stated complaint: sob Time Seen by Provider: 03/17/22 02:36 History of Present Illness HPI narrative: 71-year-old female with history of COPD, chronic kidney disease, lower extremity DVT, congestive heart failure, type 2 diabetes presenting the emergency department for evaluation of worsening shortness of breath. Patient states she had been admitted from 02/10 through 02/28 for acute hypoxemic respiratory failure, COPD and DVTs of the lower extremities. Patient does take Xarelto. Patient does not normally on oxygen at home. Over the last few days patient has had worsening lower extremity swelling, patient has been in contact with her primary care physician and has been taking high doses of p.o. Lasix with no significant improvement. Patient feels that she does have worsening abdominal edema and lower extremity edema. When EMS picked up the patient she had a pulse ox of 88% on room air. Related Data Home Medications Medication Instructions Recorded Confirmed cyanocobalamin (vitamin B-12) 2,000 mcg PO DAILY 03/19/19 03/17/22 2,000 mcg tablet,extended release (Vitamin B-12 ER) fluticasone propionate 50 2 spray intranasal DAILY 03/19/19 03/17/22 mcg/actuation nasal spray,suspension insulin glargine 100 unit/mL (3 40 unit subcut HS 07/04/21 03/17/22 mL) subcutaneous pen (Lantus Solostar U-100 Insulin) montelukast 10 mg tablet 10 mg PO QAM 11/22/21 03/17/22 albuterol sulfate 90 mcg/actuation 2 puff inhalation QID 02/11/22 03/17/22 aerosol inhaler (Ventolin HFA) insulin aspart U-100 100 unit/mL 10 - 30 sliding scale dose subcut 02/11/22 03/17/22 (3 mL) subcutaneous pen (Novolog TIDWM Flexpen U-100 Insulin aspart) verapamil 360 mg 24 hr 360 mg PO DAILY 02/11/22 03/17/22 capsule,extended release insulin syringe-needle U-100 1 mL #10 ea 03/14/22 03/17/22 31 gauge x 15/64 (BD Veo Insulin Syringe Ultra-Fine) levothyroxine 200 mcg tablet 175 mcg PO DAILY 03/14/22 03/17/22 (Synthroid) Allergies Allergy/AdvReac Type Severity Reaction Status Date / Time diphenhydramine Allergy Unknown restless Verified 03/17/22 06:28 legs nickel Allergy Unknown hives and Verified 03/17/22 06:28 itchy rash nifedipine Allergy Unknown palpitation Verified 03/17/22 06:28 s Sulfa (Sulfonamide Allergy Unknown Urticaria Verified 03/17/22 06:28 Antibiotics) and hives Tjhvgef-GQX-DeZ Reductase AdvReac Intermediate muscle Verified 03/17/22 06:28 Inhibitor cramps [Muixshx-Ovk-Ski Reductase Inhibitor] CALCIUMCHANNEL AdvReac Unknown SEE COMMIT Uncoded 03/17/22 06:28 Review of Systems Review of Systems: CONSTITUTIONAL: Denies fever, chills, or sweats. EYES: Denies visual changes, redness, or discharge. ENT: Denies rhinorrhea, congestion, sore throat, or otalgia. CARDIOVASCULAR: Denies chest pain, palpitations, or edema. RESPIRATORY: See HPI GASTROINTESTINAL: Denies abdominal pain, nausea, vomiting, or diarrhea. GENITOURINARY: Denies dysuria or hematuria. SKIN: Denies rash or itching. MUSCULOSKELETAL: Denies back pain, joint pain, or myalgia. NEUROLOGIC: Denies headache, numbness, or weakness. 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 Chronic diastolic (congestive) heart failure Chronic kidney disease, stage 3 unspecified Chronic kidney disease, stage III (moderate) COPD (chronic obstructive pulmonary disease) Coronary artery disease involving [place] heart without angina pectoris Depression DVT (deep venous thrombosis) ARACELY (generalized anxiety disorder) GERD without esophagitis History of stroke Hypertensive heart disease with heart failure and stage 3 chronic kidney disease Hypothyroid Left knee DJD Long-term insulin use Peripheral polyneuropathy Pre-ulcerative calluses Sepsis Type 2 diabetes mellitus with hyperglycemia
[2022-03-17 03:10] LABS: Alveolar/Arterial O2 Gradient 81.2 mmHg; Base Excess ABG 1.7 mEq/l (+/-2.0); Fractional Inspired Oxygen 30 %; HCO3 ABG 25.7 mEq/l (22.0-26.0); Oxygen Content ABG 12.4 %vol (16.0-22.0); Oxygen Saturation ABG 97.1 % (95.0-100.0); Oxyhemoglobin 94.9 % THb (90.0-100.0); PCO2 ABG 37.8 mmHg (35.0-45.0); PO2 ABG 88.3 mmHg (80.0-100.0); PO2 FiO2 Ratio Arterial Blood 2.94 %; Total Hemoglobin 9.2 g/dL (12.0-18.0); pH ABG 7.451 (7.350-7.450)
[2022-03-17 03:11] LABS: Device NASAL CANNULA; Liters per Minute 2.5 LPM; Modified Allen's Test Pass; Site Drawn RIGHT RADIAL
[2022-03-17 03:17] LABS: Hematocrit 26.8 % (37.0-47.0); Mean Corpuscular HGB Conc 29.9 g/dl (32-36); Mean Corpuscular Hemoglobin 25.7 pg (26-34); Mean Corpuscular Volume 86.2 fl (80-100); Mean Platelet Volume 9.1 fl (7.4-10.4); Platelet Count Result 508 k/mm3 (150-375); Red Blood Count 3.11 M/mm3 (4.2-5.4); Red Cell Distribution Width 17.2 % (11.5-14.5); White Blood Count 11.6 K/mm3 (4.5-10.0)
[2022-03-17 03:27] LABS: Alanine Aminotransferase 17 U/L (6-35); Albumin Level 3.7 g/dL (3.5-5.1); Alkaline Phosphatase 96 U/L (38-126); Anion Gap 14 mmol/L (8-16); Aspartate Amino Transferase 24 U/L (14-36); Bilirubin,Total 0.4 mg/dL (0.2-1.3); Blood Urea Nitrogen 85 mg/dL (7-17); Calcium 8.2 mg/dL (8.4-10.2); Carbon Dioxide 27 mmol/L (22-30); Chloride 93 mmol/L (98-107); Estimated CRCL calculation 21 ml/min; Estimated Glomerular Filt Rate 16; Glucose 160 mg/dL (65-110); Potassium 3.4 mmol/L (3.4-5.0); Sodium 134 mmol/L (137-145)
[2022-03-17 03:35] LABS: NT Pro B Type Natriuretic Pept 452 pg/mL (5-100)
[2022-03-17 03:47] LABS: Band Neutrophils Percent 5 % (0-6); Basophils Absolute Manual 0.11 K/mm3 (0.0-0.1); Basophils Percent Manual 1 % (0-1); Eosinophils Absolute Manual 0.23 K/mm3 (0.02-0.5); Eosinophils Percent Manual 2 % (0-4); Giant Platelets Present; Lymphocytes Absolute Manual 1.04 K/mm3 (1.1-4.5); Macrocytosis 1+ (NORMAL); Metamyelocytes Percent 2 %; Monocytes Absolute Manual 0.92 K/mm3 (0.1-0.90); Monocytes Percent Manual 8 % (3-9); Neutrophils Absolute Manual 9.04 K/mm3 (1.7-7.2); Neutrophils Percent Manual 73 % (46-73); Platelet Clumps Present; Platelet Estimate Adequate (Adequate); Total Cells Counted 100
[2022-03-17 03:48] LABS: Anisocytosis 1+ (NORMAL); Microcytosis 1+ (NORMAL); Poikilocytosis 1+ (NORMAL); Stomatocytes 1+ (NORMAL)
[2022-03-17 03:49] LABS: Hypochromasia 2+ (NORMAL); Schistocytes None Seen (NORMAL)
[2022-03-17 05:19] LABS: Appearance Urine Slightly Cloudy (Clear); Bilirubin Urine Negative (Negative); Blood Urine Negative (Negative); Color Urine Yellow (Yellow); Glucose Urine UA Negative (Negative); Ketones Urine Negative (Negative); Leukocyte Esterase Ur Negative LEU/UL (Negative); Nitrate Urine Negative (Negative); Protein Urine Negative (Negative); Urobilinogen Urine 0.2 mg/dL (<2.0); pH Urine 5.5 (5.0-9.0)
[2022-03-17 05:20] LABS: Influenza A QL RT-PCR Negative (Negative); Influenza B QL RT-PCR Negative (Negative); SARS-CoV-2 RNA PCR Negative
[2022-03-17 05:40] LABS: Add Urine Microscopic? NO
--- NOTE | 2022-03-17 06:15 | ADMGEN ---
This patient, Gregoria Rae, was admitted to Medical Room 340-01. Patient/family oriented to hospital policies and general routines including ID bracelet, bed and alarms, visiting hours, pain management, procedures, bathroom and other care routines, personal items, smoking policy, room service/diet, and visiting hours. Information on how to activate the Rapid Response Team has been discussed. Patient/Family are encouraged to report perceived risks to care and to ask questions if they do not understand what they are told or what they should do.
[2022-03-17] MEDS: HYDROmorphone HCL INJ (*CRX) 1 MG/ML SYR 0.5 MG IV PUSH ×2 (06:38→15:10)
[2022-03-17 08:08] LABS: Glucose Point of Care 180 mg/dl (65-105)
--- NOTE | 2022-03-17 09:07 | PM.IMHP ---
H&P: HPI History of Present Illness Date/Time: 03/17/22 09:07 Chief Complaint: 71-year-old female with past medical history significant for COPD, chronic diastolic heart failure, chronic kidney disease with recent need for hemodialysis now no longer on dialysis, coronary disease, anxiety disorder, GERD, hypertension amongst other comorbidities is presenting with shortness of breath and fluid retention in her lungs and lower extremities. She states after her long admission last month (please see H&P and discharge summary from last month for extensive hospitalization summary) she was starting to feel better at home. She then noticed some fluid retention and spoke with her cardiac and nephrology team who recommended taking metolazone daily for a few days. She tried taking increased doses of Lasix as well as metolazone but noticed little to no urine output. Therefore, they recommended she come to the ER. Since coming to the ER, she has been given IV diuretics and had improved urine output. She did have a fall on Sunday and states this seemed to trigger the fluid retention. She fell out of bed on her face and laid there for a little bit, but not more than an hour. She denies any loss of consciousness. No chest pain, nausea, vomiting or diarrhea. No fevers or chills, sick contacts or recent travel. She did require 3 L nasal cannula in the ER due to hypoxic respiratory failure noted. She is on no oxygen during the day at home. She does use 2 L at night. Chest x-ray in the ER showed small pleural effusions with bibasilar opacities suspicious for atelectasis as well as pulmonary edema and cardiomegaly. CBC showed a hemoglobin of 8, which appears to be near her baseline which is anywhere from 7-8.5. Creatinine was 2.9 with BUN of 85, it was 2.2/37 at discharge on March 07. Urinalysis was negative for infection or abnormality. She was admitted with nephrology consultation and concern for acute kidney injury superimposed on chronic kidney disease with fluid retention contributing to her shortness of breath and hypoxia. 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 Chronic diastolic (congestive) heart failure Chronic kidney disease, stage 3 unspecified Chronic kidney disease, stage III (moderate) COPD (chronic obstructive pulmonary disease) Coronary artery disease involving [place] heart without angina pectoris Depression DVT (deep venous thrombosis) ARACELY (generalized anxiety disorder) GERD without esophagitis History of stroke Hypertensive heart disease with heart failure and stage 3 chronic kidney disease Hypothyroid Left knee DJD Long-term insulin use Peripheral polyneuropathy Pre-ulcerative calluses Sepsis Type 2 diabetes mellitus with hyperglycemia Family History Family History Father Hypertension Family history of coronary artery disease Sibling Hypertension Family history of coronary artery disease Mother Cerebrovascular accident Other Asthma Depression Family history of Alzheimer's disease Family history of arthritis Family history of cardiovascular disease Family history of lymphoma Family history of obesity Family history of seizure disorder Social History Social History Smoking packs per day: 2 Smoking cigarettes per day: 40.0 Years smoked: 20 Smoking pack-years: 40.00 Smoking status: Former smoker Tobacco type: cigarettes Second hand tobacco smoke exposure: No Smoking end date: 05/07/87 Alcohol intake: current Drinks per week: 1 Alcohol use details: 1/MONTH Substance use: current Substance use type: marijuana Lack of Transportation: No Lack of Food: Never
[2022-03-17] MEDS: LEVOTHYROXINE SODIUM 25 MCG TABLET PO (10:46)
[2022-03-17] MEDS: PANTOPRAZOLE 40 MG TABLET PO (10:46)
[2022-03-17] MEDS: CYANOCOBALAMIN 1,000 MCG TABLET 2000 MCG PO (10:46)
[2022-03-17] MEDS: GABAPENTIN 300 MG CAPSULE PO ×2 (10:46→20:24)
[2022-03-17] MEDS: LEVOTHYROXINE SODIUM 150 MCG TABLET PO (10:46)
[2022-03-17] MEDS: VERAPAMIL HCL 180 MG TABLET ER 360 MG PO (10:47)
[2022-03-17] MEDS: FLUTICASONE PROPIONATE 0.05% NA SPR 16 GM BTL (*BKC) 2 SPRAY NASAL (10:47)
[2022-03-17] MEDS: MONTELUKAST SODIUM 10 MG TABLET PO (10:47)
[2022-03-17] MEDS: FUROSEMIDE INJ 40 MG/4 ML VIAL IV PUSH (10:47)
[2022-03-17] MEDS: CLOPIDOGREL BISULFATE 75 MG TABLET PO (10:47)
[2022-03-17] MEDS: ACETAMINOPHEN 325 MG TABLET 650 MG PO ×2 (12:11→20:28)
[2022-03-17 12:19] LABS: Glucose Point of Care 224 mg/dl (65-105)
[2022-03-17 12:32] LABS: Creatine Kinase 43 U/L (30-135)
[2022-03-17] MEDS: ONDANSETRON INJ 4 MG/2 ML VIAL IV PUSH ×2 (12:44→20:28)
--- NOTE | 2022-03-17 13:18 | PM.CNNEP ---
Assessment and Plan Assessment and plan (1) MARINA (acute kidney injury): Code(s): N17.9 - Acute kidney failure, unspecified Status: Acute Assessment and Plan: creatinine up a bit from baseline due to escalating diuretic therapy (?) follow trend with ongoing interventios (2) Stage 3b chronic kidney disease: Code(s): N18.32 - Chronic kidney disease, stage 3b Status: Acute Assessment and Plan: baseline creatinine runs ~ 1.6 - 2.2mg/dl likely due to CAD/CHF, vascular disease, diabetes, and age-related change (3) Acute on chronic diastolic heart failure: Code(s): I50.33 - Acute on chronic diastolic (congestive) heart failure Status: Acute Assessment and Plan: seems exacerbated by limited diuresis PATTERNATOR start IV bumex follow daily weights and I/Os Cardiology consulted (4) Hypertension: Code(s): I10 - Essential (primary) hypertension Status: Chronic Assessment and Plan: running a bit high currently may improve with diuresis follow trend of hemodynamics (5) Anemia: Code(s): D64.9 - Anemia, unspecified Status: Acute Assessment and Plan: likely due to CKD, and acute illness consider Epogen depending on hospital course follow H/H (6) Type 2 diabetes mellitus with hyperglycemia: Code(s): E11.65 - Type 2 diabetes mellitus with hyperglycemia Status: Chronic Assessment and Plan: follow accuchecks glycemic control Long and extensive discussion (> 20 minutes) with patient and daughterat bedside regarding her volume overload and CKD; the patient has been on dialysis before soshe as well as her daughter are aware of this possibility. Will continue to follow. History of Present Illness Reason for Consult Consult date: 03/17/22 Reason for consult: chronic renal failure and Other (volume overload) Chief Complaint Chief complaint: hypoxia,CKD,dyspnea History of Present Illness Narrative: The patient is a 71-year-old female with a past medical history as outlined below who presented to [facility] Emergency room with complaints of shortness of breath and lower extremity edema. The patient was just recently discharged from [facility] about a month ago after a long and somewhat complicated hospital course. Over the last couple of weeks however, she has noticed increasing shortness of breath with significantly more fluid retention particularly in her lower extremities and possibly her lungs (explaining the aforementioned shortness of breath). in effort to compensate for these symptoms/problems, her diuretic dosage was increased and metolazone was introduced as well in an effort to augment diuresis. However, despite these changes to her medications, she did not notice any significant improvement in her urine output at which point she came to the ER for further assessment. Workup and evaluation emergency room demonstrated evidence of volume overload by her lower extremity edema and respiratory status. By her report, she did have a fall out of bed last Sunday and that seems to of triggered her declining urine output and issues with increasing edema and fluid retention. She denies any other symptoms other than shortness of breath and dyspnea on exertion with regard to chest pain, nausea, vomiting, diarrhea, fevers, or chills. She was noted to be hypoxic in the emergency room but did improve with application of 3 L of supplemental oxygen by nasal cannula. Her chest x-ray demonstrated small pleural effusions with bibasilar opacities suspicious for atelectasis as well as pulmonary edema and cardiomegaly. Other routine blood work demonstrated her anemia of chronic kidney disease and a chemistry consistent with her known history of chronic kidney disease although her BUN was somewhat higher than baseline at 85 with a creatinine of 2.2 mg/dL when her creatinine was 2.2 mg/dL on discharge earlier this
[2022-03-17 13:19] LABS: Basophils Absolute Auto 0.1 K/mm3 (0.0-0.1); Basophils Percent Auto 0.8 % (0.2-1.2); Eosinophils Percent Auto 0.3 % (0-4.4); Hematocrit 28.6 % (37.0-47.0); Hemoglobin 8.4 g/dL (12.0-15.0); Immature Granulocyte Absolute 0.16 K/mm3 (0.00-0.031); Immature Granulocyte Percent A 1.4 % (0-0.5); Lymphocytes Absolute Auto 0.93 K/mm3 (0.9-3.2); Lymphocytes Percent Auto 8.1 % (18.3-44.2); Mean Corpuscular HGB Conc 29.4 g/dl (32-36); Mean Corpuscular Hemoglobin 25.6 pg (26-34); Mean Corpuscular Volume 87.2 fl (80-100); Mean Platelet Volume 9.3 fl (7.4-10.4); Monocytes Absolute Auto 0.8 K/mm3 (0.1-0.6); Monocytes Percent Auto 7.1 % (2.6-8.5); Neutrophils Absolute Auto 9.5 K/mm3 (1.3-6.7); Neutrophils Percent Auto 82.3 % (45.5-73.1); Nucleated Red Blood Cells Perc 0.2 % (0.0-0.2); Platelet Count Result 528 k/mm3 (150-375); Red Blood Count 3.28 M/mm3 (4.2-5.4); Red Cell Distribution Width 17.1 % (11.5-14.5); White Blood Count 11.5 K/mm3 (4.5-10.0)
[2022-03-17 13:30] LABS: Alanine Aminotransferase 18 U/L (6-35); Albumin Level 3.9 g/dL (3.5-5.1); Alkaline Phosphatase 96 U/L (38-126); Anion Gap 16 mmol/L (8-16); Aspartate Amino Transferase 24 U/L (14-36); Bilirubin,Total 0.4 mg/dL (0.2-1.3); Blood Urea Nitrogen 85 mg/dL (7-17); Calcium 8.5 mg/dL (8.4-10.2); Carbon Dioxide 26 mmol/L (22-30); Chloride 92 mmol/L (98-107); Estimated CRCL calculation 21 ml/min; Estimated Glomerular Filt Rate 15; Glucose 221 mg/dL (65-110); Potassium 3.9 mmol/L (3.4-5.0); Sodium 134 mmol/L (137-145)
[2022-03-17 13:32] LABS: Hemoglobin A1C 7.4 % (<5.7)
[2022-03-17 13:45] LABS: INR 3.7; Prothrombin Time 35.2 Seconds (11.1-14.7)
[2022-03-17 13:46] LABS: Partial Thromboplastin Time 52.7 SECONDS (22.3-36.8)
[2022-03-17] MEDS: HEPARIN SOD/D5W 100 UNITS/ML 25,000 UNITS/250 ML BAG 15 UNITS IV CONT (13:57)
--- NOTE | 2022-03-17 14:16 | ECG_ITS ---
Measurements Intervals [place] Rate: 83 P: RI: 0 QRS: 25 QRSD: 105 T: 0 QT: 401 QTc: 472 Interpretive Statements SINUS OR ECTOPIC ATRIAL RHYTHM LOW QRS VOLTAGE IN LIMB LEADS BORDERLINE ST-T WAVE ABNORMALITY- INF/LAT LEADS BASELINE ARTIFACT- I, II, AVR, AVL, AVF, V3 BORDERLINE ECG COMPARED TO ECG 02/10/2022 21:26:00 SINUS OR ECTOPIC ATRIAL RHYTHM NOW PRESENT Electronically Signed On 03-17-2022 16:26:11 DIESEL RETROFIT DESIGNER by Brannon Hatfield D.O.
[2022-03-17 14:49] LABS: Anisocytosis 1+ (NORMAL); Hypochromasia 1+ (NORMAL); Ovalocytes 1+ (NORMAL); Platelet Estimate Increased (Adequate); Schistocytes None Seen (NORMAL)
[2022-03-17] MEDS: INSULIN ASPART (*BKC) 100 UNITS/ML SUB-Q (17:06)
[2022-03-17] MEDS: BUMETANIDE INJ 1 MG/4 ML VIAL 2 MG IV PUSH (17:06)
[2022-03-17] MEDS: ALPRAZolam (*CRX) 0.5 MG TABLET PO (17:06)
[2022-03-17] MEDS: FERROUS SULFATE 324 MG TABLET PO (17:07)
[2022-03-17 17:14] LABS: Glucose Point of Care 320 mg/dl (65-105)
[2022-03-17] MEDS: INSULIN GLARGINE (*BKC) 100 UNITS/ML 40 UNITS SUB-Q (20:23)
[2022-03-17 20:50] LABS: INR 3.1; Prothrombin Time 30.6 Seconds (11.1-14.7)
[2022-03-17 20:52] LABS: Partial Thromboplastin Time 111.9 SECONDS (22.3-36.8)
[2022-03-17 21:50] LABS: Glucose Point of Care 330 mg/dl (65-105)
[2022-03-18] VITALS (12 sets, daily range): BP systolic 149–158; BP diastolic 61–86; PULSE 70–99; RESP 16–18; TEMP 36.4–36.6; O2SAT 92–98
[2022-03-18] MEDS: traMADol HCL (*CRX) 50 MG TABLET PO ×2 (01:08→15:02)
[2022-03-18 04:00] LABS: Basophils Absolute Auto 0.1 K/mm3 (0.0-0.1); Basophils Percent Auto 0.4 % (0.2-1.2); Hematocrit 28.9 % (37.0-47.0); Hemoglobin 8.6 g/dL (12.0-15.0); Immature Granulocyte Absolute 0.17 K/mm3 (0.00-0.031); Immature Granulocyte Percent A 1.3 % (0-0.5); Lymphocytes Absolute Auto 1.07 K/mm3 (0.9-3.2); Lymphocytes Percent Auto 8.2 % (18.3-44.2); Mean Corpuscular HGB Conc 29.8 g/dl (32-36); Mean Corpuscular Hemoglobin 25.6 pg (26-34); Mean Platelet Volume 9.2 fl (7.4-10.4); Monocytes Absolute Auto 1.2 K/mm3 (0.1-0.6); Monocytes Percent Auto 9.2 % (2.6-8.5); Neutrophils Absolute Auto 10.6 K/mm3 (1.3-6.7); Neutrophils Percent Auto 80.9 % (45.5-73.1); Platelet Count Result 515 k/mm3 (150-375); Red Blood Count 3.36 M/mm3 (4.2-5.4); Red Cell Distribution Width 17.2 % (11.5-14.5); White Blood Count 13.1 K/mm3 (4.5-10.0)
[2022-03-18 04:12] LABS: Partial Thromboplastin Time 89.9 SECONDS (22.3-36.8)
[2022-03-18 04:24] LABS: Alanine Aminotransferase 24 U/L (6-35); Albumin Level 3.8 g/dL (3.5-5.1); Alkaline Phosphatase 78 U/L (38-126); Anion Gap 26 mmol/L (8-16); Aspartate Amino Transferase 32 U/L (14-36); Bilirubin,Total 0.8 mg/dL (0.2-1.3); Blood Urea Nitrogen 98 mg/dL (7-17); Calcium 7.3 mg/dL (8.4-10.2); Carbon Dioxide 16 mmol/L (22-30); Chloride 90 mmol/L (98-107); Estimated CRCL calculation 21 ml/min; Estimated Glomerular Filt Rate 15; Glucose 289 mg/dL (65-110); Potassium 4.8 mmol/L (3.4-5.0); Sodium 132 mmol/L (137-145)
[2022-03-18 04:33] LABS: Anisocytosis 1+ (NORMAL); Platelet Estimate Increased (Adequate)
[2022-03-18 04:34] LABS: Schistocytes None Seen (NORMAL)
[2022-03-18] MEDS: LEVOTHYROXINE SODIUM 25 MCG TABLET PO (06:27)
[2022-03-18] MEDS: LEVOTHYROXINE SODIUM 150 MCG TABLET PO (06:27)
[2022-03-18 09:11] LABS: Glucose Point of Care 245 mg/dl (65-105)
[2022-03-18] MEDS: INSULIN ASPART (*BKC) 100 UNITS/ML SUB-Q ×3 (09:34→17:48)
--- NOTE | 2022-03-18 09:40 | PM.CNCAR ---
Assessment and Plan Assessment and plan (1) Acute on chronic diastolic heart failure: Code(s): I50.33 - Acute on chronic diastolic (congestive) heart failure Status: Acute Plan 71-year-old lady with a history of Hypertensin, diastolic dysfunction and hypertensive nephrosclerosis with advancing renal failure, volume overload and symptomatic uremia despite diuretics. I think it is high probability that she now requires ongoing renal replacement therapy. She understands this. Nephrology consultation is pending once again. I do not believe there are any significant cardiac issues with which we can provide assistance with any of this. She does not have left ventricular systolic dysfunction this is not the so called cardial renal syndrome with low cardiac output. Uriel Gillette MD [facility] History of Present Illness History of Present Illness Consult date/time: 03/18/22 09:40 Reason For Visit: hypoxia,CKD,dyspnea Narrative: This is a 71-year-old woman I am seeing at the request of the hospitalist and apparently at the request of the patient because of recurrent admission with volume overload, worsening renal failure and history of diastolic heart failure. The patient is unknown to me but appears to be well known to my partner, Dr. Marino has seen him in the office frequently for a number of years. She has a history of chronic hypertension with diastolic dysfunction on multiple evaluations that have been done both in the office and in the high hospital setting. She is known not to have coronary artery disease by virtue of a number of previous angiograms disclosing no evidence of coronary disease. She has worsening chronic kidney disease and couple of recent admissions to the hospital with volume overload and the need for diuresis and somewhat recently the need for hemodialysis temporarily to treat volume overload. She called her environmental health nurse at the end of this past week to report symptoms of worsening edema and fluid overload despite advancing diuretics and was directed to the emergency room for repeat admission to the hospital. She apparently had an appointment with my partner in the office for routine follow-up which was missed because she was here and so she requested us to see her in the hospital while she is here. There are some notes in the chart that referred to her history of coronary artery disease which appeared to be erroneous since as mentioned above she has a history of a number of previous normal angiograms. She in addition to increasing lower extremity and abdominal girth and shortness of breath is reporting symptoms of nausea and dry heaving for the last couple of days. her metabolic profile now shows that her BUN is 98 in her creatinine is 3. She is trying to eat breakfast as I am seeing her but she is complaining of being nauseated. In addition to that stated above she has a history of morbid obesity with a BMI of 49 and a history of sleep apnea which is untreated because in the past she has not used her CPAP device. Review of Systems Constitutional: Constitutional: Reports fatigue and Reports lethargy Eyes: Eyes: Reports no additional eye complaints ENT: Reports system reviewed and no additional complaints, except as documented Cardiovascular: Cardiovascular: Reports no additional cardiovascular complaints Respiratory: Respiratory: Reports dyspnea on exertion Gastrointestinal: Gastrointestinal: Reports nausea Musculoskeletal: Musculoskeletal: Reports no additional musculoskeletal complaints Integumentary/Breasts: Skin/Breast: Reports system reviewed and no additional complaints, except as docu Neurologic: Reports system reviewed and no additional complaints, except as documented Endocrine: Endocrine: Reports no additional endocrine complaints Hematologic/Lymphatic: Hematologic/Lymphatic: Reports no additional hematologic/lymphatic complaints Allergic/Immunologic: Allergic/Immunologic: Reports no ad
[2022-03-18] MEDS: FLUTICASONE PROPIONATE 0.05% NA SPR 16 GM BTL (*BKC) 2 SPRAY NASAL (09:46)
[2022-03-18] MEDS: CLOPIDOGREL BISULFATE 75 MG TABLET PO (09:46)
[2022-03-18] MEDS: FERROUS SULFATE 324 MG TABLET PO ×2 (09:46→17:47)
[2022-03-18] MEDS: CYANOCOBALAMIN 1,000 MCG TABLET 2000 MCG PO (09:46)
[2022-03-18] MEDS: BUMETANIDE INJ 1 MG/4 ML VIAL 2 MG IV PUSH ×2 (09:46→17:47)
[2022-03-18] MEDS: PANTOPRAZOLE 40 MG TABLET PO (09:46)
[2022-03-18] MEDS: ALPRAZolam (*CRX) 0.5 MG TABLET PO ×2 (09:46→21:06)
[2022-03-18] MEDS: FLUTICASONE/UMECLIDIN/VILANTER 200-62.5-25 MCG ELLIPTA 1 PUFF INHALATION (09:46)
[2022-03-18] MEDS: GABAPENTIN 300 MG CAPSULE PO ×2 (09:46→21:06)
[2022-03-18] MEDS: ALBUTEROL SULFATE (*SP) AEROSOL 1 PUFF 2 PUFF INHALATION ×4 (09:46→19:41)
[2022-03-18] MEDS: VERAPAMIL HCL 180 MG TABLET ER 360 MG PO (09:46)
[2022-03-18] MEDS: ACETAMINOPHEN 325 MG TABLET 650 MG PO ×3 (09:47→23:17)
--- NOTE | 2022-03-18 09:53 | PC.NURSE ---
called pharmacy form 54 aleida. will give when received
[2022-03-18] MEDS: HEPARIN SOD/D5W 100 UNITS/ML 25,000 UNITS/250 ML BAG 13 UNITS IV CONT (09:59)
--- NOTE | 2022-03-18 10:18 | PM.IMPN ---
Progress Note: A&P Assessment and Plan (1) Anemia: Code(s): D64.9 - Anemia, unspecified Status: Acute Assessment and Plan: Appears to be at baseline, does receive Epogen, will defer to Nephrology for further management, no signs of a GI bleed at this time (2) CKD (chronic kidney disease): Code(s): N18.9 - Chronic kidney disease, unspecified Status: Acute Assessment and Plan: Appears to be worsening, will defer to Nephrology for further management, continue IV diuresis for now Escalated to IV Bumex per Nephrology, monitor (3) DVT (deep venous thrombosis): Code(s): I82.409 - Acute embolism and thrombosis of unspecified deep veins of unspecified lower extremity Status: Acute Assessment and Plan: Heparin drip, hold Xarelto (4) Acute respiratory failure: Code(s): J96.00 - Acute respiratory failure, unspecified whether with hypoxia or hypercapnia Status: Acute Assessment and Plan: Supplemental oxygen as needed, suspect this will improve as pulmonary edema improves (5) Asthma-COPD overlap syndrome: Code(s): J44.9 - Chronic obstructive pulmonary disease, unspecified Status: Acute Assessment and Plan: Hold off on steroids, does not appear to be in acute exacerbation, continue home treatments (6) Hypertension: Code(s): I10 - Essential (primary) hypertension Status: Chronic Assessment and Plan: Stable (7) Acute on chronic diastolic heart failure: Code(s): I50.33 - Acute on chronic diastolic (congestive) heart failure Status: Acute Assessment and Plan: Appreciate cardiology consultation, fluid overload appears to be secondary to kidney disease, management per Nephrology (8) MARINA (acute kidney injury): Code(s): N17.9 - Acute kidney failure, unspecified Status: Acute Assessment and Plan: Appreciate nephrology management, she did need dialysis during her last admission, will diurese and monitor closely (9) RAINA (obstructive sleep apnea): Code(s): G47.33 - Obstructive sleep apnea (adult) (pediatric) Status: Acute Assessment and Plan: Continue CPAP at night as tolerated (10) Hypothyroidism (acquired): Code(s): E03.9 - Hypothyroidism, unspecified Status: Acute Assessment and Plan: Continue home medication, check TSH (11) ARACELY (generalized anxiety disorder): Code(s): F41.1 - Generalized anxiety disorder Status: Acute Assessment and Plan: Continue home Xanax (12) 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 No chest pain or shortness of breath. No diarrhea. No fevers or chills. She is complaining of some nausea and occasional emesis. Review of Systems Review of Systems: 12 point review of systems was assessed and was negative except as noted in the HPI Exam Narrative: General: No acute distress, alert and oriented per baseline, comfortable on 3 L nasal cannula HEENT: Atraumatic, normocephalic, mucous membranes moist CV: Regular rate and rhythm, S1, S2 Lungs: Diminished at bases, scattered wheezes and upper airway, otherwise reasonable air entry noted Abdomen: Soft, nontender, nondistended Extremities: 1+ pitting edema bilateral lower extremities Skin: No rashes noted, no lesions or wounds seen Psych: Euthymic, normal affect Objective Data Vital Signs Vital Signs: Vital Signs - 24 hr 03/17/22 12:00 03/07
[2022-03-18] MEDS: MONTELUKAST SODIUM 10 MG TABLET PO (11:13)
[2022-03-18 11:44] LABS: Partial Thromboplastin Time 62.7 SECONDS (22.3-36.8)
[2022-03-18] MEDS: HEPARIN SODIUM 5,000 UNITS/ML VIAL 3500 UNITS IV PUSH (12:08)
--- NOTE | 2022-03-18 12:20 | PM.PNNEP ---
Progress Note: A&P Assessment and Plan (1) MARINA (acute kidney injury): Code(s): N17.9 - Acute kidney failure, unspecified Status: Acute Assessment and Plan: creatinine up a bit from baseline due to escalating diuretic therapy (?) follow trend with ongoing interventions concerning that BUN is rising - follow closely (since has history of overt uremia). (2) Stage 3b chronic kidney disease: Code(s): N18.32 - Chronic kidney disease, stage 3b Status: Chronic Assessment and Plan: baseline creatinine runs ~ 1.6 - 2.2mg/dl likely due to CAD/CHF, vascular disease, diabetes, and age-related change (3) Acute on chronic diastolic heart failure: Code(s): I50.33 - Acute on chronic diastolic (congestive) heart failure Status: Acute Assessment and Plan: seems exacerbated by limited diuresis PHYSICIAN COMPENSATION ANALYST on IV bumex follow daily weights and I/Os Cardiology recommendations noted (4) Hypertension: Code(s): I10 - Essential (primary) hypertension Status: Chronic Assessment and Plan: running a bit high currently may improve with diuresis follow trend of hemodynamics (5) Anemia: Code(s): D64.9 - Anemia, unspecified Status: Acute Assessment and Plan: likely due to CKD, and acute illness consider Epogen depending on hospital course follow H/H (6) Type 2 diabetes mellitus with hyperglycemia: Code(s): E11.65 - Type 2 diabetes mellitus with hyperglycemia Status: Chronic Assessment and Plan: follow accuchecks glycemic control Will continue to follow. Subjective Date/time seen: 03/18/22 12:20 States she feels a bit better today but admits to some nausea and vomiting earlier today; better UOP with IV diuretics but at the expense of renal function (BUN higher but creatinine about the same); at bedside and we discussed the situation. Exam Narrative: General: WD/WN in NAD Heart: normal S1 and S2; no rub Lungs: coarse breath sounds; diminished at bases associated with a few crackles Abdomen: soft, nontender, nondistended, positive bowel sounds Extremities: no cyanosis or clubbing; 1+ edema Skin: warm and dry Objective Data Vital Signs Vital Signs: Vital Signs Temp Pulse Resp BP Pulse Ox O2 Del Method O2 Flow Rate 03/18/22 12:00 70 03/18/22 09:45 Room Air 03/18/22 08:00 73 03/18/22 09:53 93 Room Air 03/18/22 09:44 72 18 151/61 H 92 03/18/22 06:24 36.5 C 76 18 158/74 H 98 03/18/22 04:36 99 03/18/22 00:00 98 03/17/22 20:00 78 03/17/22 20:00 98 Nasal Cannula 3 03/17/22 20:08 36.6 C 78 20 147/79 H 98 03/17/22 16:00 78 Intake/Output Intake/Output: Intake & Output 03/15/22 03/16/22 03/17/22 03/18/22 23:59 23:59 23:59 23:59 Intake Total 1100 830 Output Total 200 600 Balance 900 230 Meds/Results Medications: Active Medications Generic Name Dose Route Start Last Admin Trade Name Freq PRN Reason Stop Dose Admin Acetaminophen 650 mg 03/17/22 11:13 03/18/22 09:47 Acetaminophen 325 Mg Tablet PO 650 mg Q6H PRN Administration Mild Pain (1-3) or Fever Albuterol 2 puff 03/17/22 12:00 03/18/22 12:42 Albuterol Sulfate (*Sp) Aerosol 1 Puff INHALATION 2 puff QIDRT ALINA Administration Alprazolam 0.5 mg 03/17/22 17:00 03/18/22 09:46 Alprazolam (*Crx) 0.5 Mg Tablet PO 0.5 mg BID ALINA Administration Bumetanide 2 mg 03/17/22 17:00 03/18/22 09:46 Bumetanide Inj 1 Mg/4 Ml Vial IV PUSH 2 mg BID ALINA Administration Clopidogrel Bisulfate 75 mg 03/17/22 09:00 03/18/22 09:46 Clopidogrel Bisulfate 75 Mg Tablet PO 75 mg DAILY ALINA Administration Cyanocobalamin 2,000 mcg 03/17/22 09:00 03/18/22 09:46 Cyanocobalamin 1,000 Mcg Tablet PO 2,000 mcg DAILY ALINA Administration Dextrose 12.5 gm 03/17/22 12:36 Dextrose
--- NOTE | 2022-03-18 12:20 | P.PNNP_ITS ---
Progress Note: A&P Assessment and Plan (1) MARINA (acute kidney injury): Code(s): N17.9 - Acute kidney failure, unspecified Status: Acute Assessment and Plan: * creatinine up a bit from baseline * due to escalating diuretic therapy (?) * follow trend with ongoing interventions * concerning that BUN is rising - follow closely (since has history of overt uremia). 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 * follow daily weights and I/Os * Cardiology recommendations noted (4) Hypertension: Code(s): I10 - Essential (primary) hypertension Status: Chronic Assessment and Plan: * running a bit high currently * may improve with diuresis * follow trend of hemodynamics (5) Anemia: Code(s): D64.9 - Anemia, unspecified Status: Acute Assessment and Plan: * likely due to CKD, and acute illness * consider Epogen depending on hospital course * follow H/H (6) Type 2 diabetes mellitus with hyperglycemia: Code(s): E11.65 - Type 2 diabetes mellitus with hyperglycemia Status: Chronic Assessment and Plan: * follow accuchecks * glycemic control Will continue to follow. Subjective Date/time seen: 03/18/22 12:20 States she feels a bit better today but admits to some nausea and vomiting earlier today; better UOP with IV diuretics but at the expense of renal function (BUN higher but creatinine about the same); at bedside and we discussed the situation. Exam Narrative: General: WD/WN in NAD Heart: normal S1 and S2; no rub Lungs: coarse breath sounds; diminished at bases associated with a few crackles Abdomen: soft, nontender, nondistended, positive bowel sounds Extremities: no cyanosis or clubbing; 1+ edema Skin: warm and dry Objective Data Vital Signs Vital Signs: Vital Signs Temp Pulse Resp BP Pulse Ox O2 Del Method O2 Flow Rate 03/18/22 12:00 70 11/12/22 09:45 Room Air 03/18/22 08:00 73 03/18/22 09:53 93 Room Air 03/18/22 09:44 72 18 151/61 H 92 03/18/22 06:24 36.5 C 76 18 158/74 H 98 03/18/22 04:36 99 03/18/22 00:00 98 03/17/22 20:00 78 03/17/22 20:00 98 Nasal Cannula 3 03/17/22 20:08 36.6 C 78 20 147/79 H 98 03/17/22 16:00 78 Intake/Output Intake/Output: Intake & Output 03/15/22 03/16/22 03/17/22 03/18/22 23:59 23:59 23:59 23:59 Intake Total 1100 830 Output Total 200 600 Balance 900 230 Meds/Results Medications: Active Medications Generic Name Dose Route Start Last Admin Trade Name Felipe PRN Reason Stop Dose Admin Acetaminophen 650 mg 03/17/22 11:13 03/18/22 09:47
[2022-03-18 12:23] LABS: Glucose Point of Care 287 mg/dl (65-105)
[2022-03-18 17:30] LABS: Glucose Point of Care 355 mg/dl (65-105)
[2022-03-18 18:54] LABS: Partial Thromboplastin Time 116.6 SECONDS (22.3-36.8)
[2022-03-18] MEDS: INSULIN GLARGINE (*BKC) 100 UNITS/ML 40 UNITS SUB-Q (21:06)
[2022-03-18 21:37] LABS: Glucose Point of Care 313 mg/dl (65-105)
--- NOTE | 2022-03-18 22:38 | PCRCNOTE ---
PT DOES NOT HAVE OR WEAR ANY KIND OF CPAP AT HOME, SHE STATES THEY CAME AND TOOK ONE AWAY SOME TIME AGO & THAT SHE IS SCHEDULED FOR SLEEP STUDY AT [facility]
[2022-03-19] VITALS (11 sets, daily range): BP systolic 131–157; BP diastolic 60–92; PULSE 64–113; RESP 12–24; TEMP 35.8–36.7; O2SAT 95–99
[2022-03-19 01:34] LABS: Basophils Absolute Auto 0.1 K/mm3 (0.0-0.1); Basophils Percent Auto 0.5 % (0.2-1.2); Eosinophils Percent Auto 0.3 % (0-4.4); Hematocrit 27.2 % (37.0-47.0); Hemoglobin 8.1 g/dL (12.0-15.0); Immature Granulocyte Absolute 0.14 K/mm3 (0.00-0.031); Immature Granulocyte Percent A 1.1 % (0-0.5); Lymphocytes Absolute Auto 1.51 K/mm3 (0.9-3.2); Lymphocytes Percent Auto 11.3 % (18.3-44.2); Mean Corpuscular HGB Conc 29.8 g/dl (32-36); Mean Corpuscular Hemoglobin 25.5 pg (26-34); Mean Corpuscular Volume 85.5 fl (80-100); Mean Platelet Volume 9.3 fl (7.4-10.4); Monocytes Absolute Auto 1.3 K/mm3 (0.1-0.6); Monocytes Percent Auto 9.5 % (2.6-8.5); Neutrophils Absolute Auto 10.3 K/mm3 (1.3-6.7); Neutrophils Percent Auto 77.3 % (45.5-73.1); Nucleated Red Blood Cells Perc 0.2 % (0.0-0.2); Platelet Count Result 507 k/mm3 (150-375); Red Blood Count 3.18 M/mm3 (4.2-5.4); Red Cell Distribution Width 17.2 % (11.5-14.5); White Blood Count 13.3 K/mm3 (4.5-10.0)
[2022-03-19 01:43] LABS: Partial Thromboplastin Time 89.2 SECONDS (22.3-36.8)
[2022-03-19 01:48] LABS: Alanine Aminotransferase 23 U/L (6-35); Albumin Level 3.7 g/dL (3.5-5.1); Alkaline Phosphatase 95 U/L (38-126); Anion Gap 15 mmol/L (8-16); Aspartate Amino Transferase 33 U/L (14-36); Bilirubin,Total 0.5 mg/dL (0.2-1.3); Blood Urea Nitrogen 102 mg/dL (7-17); Calcium 8.2 mg/dL (8.4-10.2); Carbon Dioxide 26 mmol/L (22-30); Chloride 90 mmol/L (98-107); Estimated CRCL calculation 19 ml/min; Estimated Glomerular Filt Rate 14; Glucose 288 mg/dL (65-110); Potassium 3.9 mmol/L (3.4-5.0); Sodium 131 mmol/L (137-145)
[2022-03-19 02:10] LABS: Hypochromasia 1+ (NORMAL); Poikilocytosis 1+ (NORMAL)
[2022-03-19] MEDS: traMADol HCL (*CRX) 50 MG TABLET PO (02:55)
[2022-03-19] MEDS: HEPARIN SOD/D5W 100 UNITS/ML 25,000 UNITS/250 ML BAG 13 UNITS IV CONT ×2 (03:36→23:23)
[2022-03-19] MEDS: LEVOTHYROXINE SODIUM 150 MCG TABLET PO (06:43)
[2022-03-19] MEDS: LEVOTHYROXINE SODIUM 25 MCG TABLET PO (06:44)
[2022-03-19] MEDS: FLUTICASONE/UMECLIDIN/VILANTER 200-62.5-25 MCG ELLIPTA 1 PUFF INHALATION (08:08)
[2022-03-19] MEDS: ALBUTEROL SULFATE (*SP) AEROSOL 1 PUFF 2 PUFF INHALATION ×3 (08:08→15:56)
--- NOTE | 2022-03-19 08:32 | PM.IMPN ---
Progress Note: A&P Assessment and Plan (1) Anemia: Code(s): D64.9 - Anemia, unspecified Status: Acute Assessment and Plan: Appears to be at baseline, does receive Epogen, will defer to Nephrology for further management, no signs of a GI bleed at this time (2) CKD (chronic kidney disease): Code(s): N18.9 - Chronic kidney disease, unspecified Status: Acute Assessment and Plan: Appears to be worsening, will defer to Nephrology for further management, continue IV diuresis for now Escalated to IV Bumex per Nephrology, monitor Will likely need dialysis (3) DVT (deep venous thrombosis): Code(s): I82.409 - Acute embolism and thrombosis of unspecified deep veins of unspecified lower extremity Status: Acute Assessment and Plan: Heparin drip, hold Xarelto (4) Acute respiratory failure: Code(s): J96.00 - Acute respiratory failure, unspecified whether with hypoxia or hypercapnia Status: Acute Assessment and Plan: Supplemental oxygen as needed, suspect this will improve as pulmonary edema improves (5) Asthma-COPD overlap syndrome: Code(s): J44.9 - Chronic obstructive pulmonary disease, unspecified Status: Acute Assessment and Plan: Hold off on steroids, does not appear to be in acute exacerbation, continue home treatments (6) Hypertension: Code(s): I10 - Essential (primary) hypertension Status: Chronic Assessment and Plan: Stable (7) Acute on chronic diastolic heart failure: Code(s): I50.33 - Acute on chronic diastolic (congestive) heart failure Status: Acute Assessment and Plan: Appreciate cardiology consultation, fluid overload appears to be secondary to kidney disease, management per Nephrology (8) MARINA (acute kidney injury): Code(s): N17.9 - Acute kidney failure, unspecified Status: Acute Assessment and Plan: Appreciate nephrology management, she did need dialysis during her last admission, will diurese and monitor closely (9) RAINA (obstructive sleep apnea): Code(s): G47.33 - Obstructive sleep apnea (adult) (pediatric) Status: Acute Assessment and Plan: Continue CPAP at night as tolerated (10) Hypothyroidism (acquired): Code(s): E03.9 - Hypothyroidism, unspecified Status: Acute Assessment and Plan: Continue home medication, check TSH (11) ARACELY (generalized anxiety disorder): Code(s): F41.1 - Generalized anxiety disorder Status: Acute Assessment and Plan: Continue home Xanax (12) 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: Code(s): K22.70 - 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 Status: Acute Assessment and Plan: Stable (13) Chronic venous stasis dermatitis: Code(s): I87.2 - Venous insufficiency (chronic) (peripheral) Status: Acute Assessment and Plan: Worsened due to volume overload at this time, monitor Plan DVT prophylaxis with heparin drip GI prophylaxis not indicated Code status full code Subjective Date/time seen: 03/19/22 08:32 Interval history: No overnight events noted. No chest pain or shortness of breath. No nausea, vomiting or diarrhea. No fevers or chills. Patient is complaining of a headache with some sinus drainage noted. She is admitting to some forehead pressure and sinus pressure over the maxillary sinus. She denies sore throat or cough. She also is requesting something to help her sleep but she is having hard time sleeping while she is here. Review of Systems Review of Systems: 12 point review of systems was assessed and was negative except as noted in the HPI Exam Narrative: General: No acute distress, alert and oriented per baseline, comfortable on 3 L nasal cannula HEENT: Atraumatic, normocephalic, mucous membranes moist CV: Regular rate and rhythm, S1, S2 Lungs: Clear to auscultation bilaterally, good air entry, no wheezes or crackles noted
[2022-03-19 08:50] LABS: Partial Thromboplastin Time 74.7 SECONDS (22.3-36.8)
[2022-03-19 09:12] LABS: Glucose Point of Care 239 mg/dl (65-105)
[2022-03-19] MEDS: CLOPIDOGREL BISULFATE 75 MG TABLET PO (09:13)
[2022-03-19] MEDS: ALPRAZolam (*CRX) 0.5 MG TABLET PO ×2 (09:13→20:36)
[2022-03-19] MEDS: FERROUS SULFATE 324 MG TABLET PO ×2 (09:13→18:13)
[2022-03-19] MEDS: INSULIN ASPART (*BKC) 100 UNITS/ML SUB-Q ×3 (09:13→18:13)
[2022-03-19] MEDS: BUMETANIDE INJ 1 MG/4 ML VIAL 2 MG IV PUSH ×2 (09:13→18:13)
[2022-03-19] MEDS: VERAPAMIL HCL 180 MG TABLET ER 360 MG PO (09:14)
[2022-03-19] MEDS: PANTOPRAZOLE 40 MG TABLET PO (09:14)
[2022-03-19] MEDS: FLUTICASONE PROPIONATE 0.05% NA SPR 16 GM BTL (*BKC) 2 SPRAY NASAL (09:14)
[2022-03-19] MEDS: CYANOCOBALAMIN 1,000 MCG TABLET 2000 MCG PO (09:14)
[2022-03-19] MEDS: GABAPENTIN 300 MG CAPSULE PO ×2 (09:14→20:36)
[2022-03-19] MEDS: MONTELUKAST SODIUM 10 MG TABLET PO (09:14)
[2022-03-19 12:26] LABS: Glucose Point of Care 278 mg/dl (65-105)
[2022-03-19] MEDS: ACETAMINOPHEN 325 MG TABLET 650 MG PO (12:34)
--- NOTE | 2022-03-19 13:00 | P.PNNP_ITS ---
Progress Note: A&P Assessment and Plan (1) MARINA (acute kidney injury): Code(s): N17.9 - Acute kidney failure, unspecified Status: Acute Assessment and Plan: * creatinine up from baseline * presumably due to escalating diuretic therapy * follow trend with ongoing interventions * concerning that BUN is rising - follow closely (since has history of overt uremia). 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 * consider holding diuretics x 24 hours * perhaps she would be better with IV albumin chased by IV diuretics (?) * follow daily weights and I/Os * Cardiology recommendations noted (4) Hypertension: Code(s): I10 - Essential (primary) hypertension Status: Chronic Assessment and Plan: * slightly up at this time * may improve with diuresis * follow trend of hemodynamics (5) Anemia: Code(s): D64.9 - Anemia, unspecified Status: Acute Assessment and Plan: * likely due to CKD, and acute illness * consider Epogen depending on hospital course * follow H/H (6) Type 2 diabetes mellitus with hyperglycemia: Code(s): E11.65 - Type 2 diabetes mellitus with hyperglycemia Status: Chronic Assessment and Plan: * follow accuchecks * glycemic control Will continue to follow. Subjective Date/time seen: 03/19/22 13:00 BUN and creatinine still rising with attempted diuresis although making urine, not really negative with regard to I/Os; complaing of intermittent headaches and sinus congestion currently; having a hard time sleeping at night here in the hospital. Exam Narrative: General: WD/WN in NAD Heart: normal S1 and S2; no rub Lungs: coarse breath sounds; diminished at bases associated with a few crackles Abdomen: soft, nontender, nondistended, positive bowel sounds Extremities: no cyanosis or clubbing; 1+ edema Skin: warm and dry Objective Data Vital Signs Vital Signs: Vital Signs Temp Pulse Resp BP Pulse Ox O2 Del Method O2 Flow Rate 03/19/22 12:00 64 03/19/22 09:40 96 Nasal Cannula 2 03/19/22 09:10 76 20 131/60 96 03/19/22 08:00 69 03/19/22 08:09 95 Nasal Cannula 2 03/19/22 04:00 72 03/19/22 04:07 36.4 C 73 18 157/70 H 95 03/19/22 00:00 75 03/18/22 22:37 94 Room Air 03/18/22 20:00 Room Air 03/18/22 21:06 36.6 C 78 18 152/86 H 97 03/18/22 20:00 78 03/18/22 19:48 75 16 Intake/Output Intake/Output: Intake & Output 03/16/22 03/17/22 03/18/22 03/19/22 23:59 23:59 23:59 23:59 Intake Total 1100 1370 930 Output Total 200 1075 625 Balance 900 295 305 Meds/Results Medications: Active Medications
--- NOTE | 2022-03-19 13:00 | PM.PNNEP ---
Progress Note: A&P Assessment and Plan (1) MARINA (acute kidney injury): Code(s): N17.9 - Acute kidney failure, unspecified Status: Acute Assessment and Plan: creatinine up from baseline presumably due to escalating diuretic therapy follow trend with ongoing interventions concerning that BUN is rising - follow closely (since has history of overt uremia). 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 consider holding diuretics x 24 hours perhaps she would be better with IV albumin chased by IV diuretics (?) follow daily weights and I/Os Cardiology recommendations noted (4) Hypertension: Code(s): I10 - Essential (primary) hypertension Status: Chronic Assessment and Plan: slightly up at this time may improve with diuresis follow trend of hemodynamics (5) Anemia: Code(s): D64.9 - Anemia, unspecified Status: Acute Assessment and Plan: likely due to CKD, and acute illness consider Epogen depending on hospital course follow H/H (6) Type 2 diabetes mellitus with hyperglycemia: Code(s): E11.65 - Type 2 diabetes mellitus with hyperglycemia Status: Chronic Assessment and Plan: follow accuchecks glycemic control Will continue to follow. Subjective Date/time seen: 03/19/22 13:00 BUN and creatinine still rising with attempted diuresis although making urine, not really negative with regard to I/Os; complaing of intermittent headaches and sinus congestion currently; having a hard time sleeping at night here in the hospital. Exam Narrative: General: WD/WN in NAD Heart: normal S1 and S2; no rub Lungs: coarse breath sounds; diminished at bases associated with a few crackles Abdomen: soft, nontender, nondistended, positive bowel sounds Extremities: no cyanosis or clubbing; 1+ edema Skin: warm and dry Objective Data Vital Signs Vital Signs: Vital Signs Temp Pulse Resp BP Pulse Ox O2 Del Method O2 Flow Rate 03/19/22 12:00 64 03/19/22 09:40 96 Nasal Cannula 2 03/19/22 09:10 76 20 131/60 96 03/19/22 08:00 69 03/19/22 08:09 95 Nasal Cannula 2 03/19/22 04:00 72 03/19/22 04:07 36.4 C 73 18 157/70 H 95 03/19/22 00:00 75 03/18/22 22:37 94 Room Air 03/18/22 20:00 Room Air 03/18/22 21:06 36.6 C 78 18 152/86 H 97 03/18/22 20:00 78 03/18/22 19:48 75 16 Intake/Output Intake/Output: Intake & Output 03/16/22 03/17/22 03/18/22 03/19/22 23:59 23:59 23:59 23:59 Intake Total 1100 1370 930 Output Total 200 1075 625 Balance 900 295 305 Meds/Results Medications: Active Medications Generic Name Dose Route Start Last Admin Trade Name Freq PRN Reason Stop Dose Admin Acetaminophen 650 mg 03/17/22 11:13 03/19/22 12:34 Acetaminophen 325 Mg Tablet PO 650 mg Q6H PRN Administration Mild Pain (1-3) or Fever Acetaminophen/Butalbital/Caffeine 1 tab 03/19/22 13:23 03/19/22 16:25 Acetaminophen/Butalbital/Caffeine 325-50-40 Mg Tablet (Fioricet) PO 1 tab Q4H PRN Administration headache Albuterol 2 puff 03/17/22 12:00 03/19/22 15:56 Albuterol Sulfate (*Sp) Aerosol 1 Puff INHALATION 2 puff QIDRT ALINA Administration Alprazolam 0.5 mg 03/18/22 21:00 03/19/22 09:13 Alprazolam (*Crx) 0.5 Mg Tablet PO 0.5 mg Q12HR ALINA Administration Bumetanide 2 mg 03/17/22 17:00 03/19/22 09:13 Bumetanide Inj 1 Mg/4 Ml Vial IV PUSH 2
[2022-03-19] MEDS: PROMETHAZINE HCL 25 MG/ML AMPUL 12.5 MG IV PUSH (13:26)
[2022-03-19] MEDS: ACETAMINOPHEN/BUTALBITAL/CAFFEINE 325-50-40 MG TABLET (FIORICET) 1 TAB PO ×2 (16:25→20:36)
[2022-03-19 17:55] LABS: Glucose Point of Care 261 mg/dl (65-105)
[2022-03-19] MEDS: MELATONIN 5 MG TABLET PO (20:37)
[2022-03-19] MEDS: INSULIN GLARGINE (*BKC) 100 UNITS/ML 40 UNITS SUB-Q (20:50)
[2022-03-19 21:26] LABS: Glucose Point of Care 245 mg/dl (65-105)
[2022-03-20] VITALS (12 sets, daily range): BP systolic 139–154; BP diastolic 72–87; PULSE 73–88; RESP 16–18; TEMP 36.6–36.9; O2SAT 95–100
[2022-03-20] MEDS: LEVOTHYROXINE SODIUM 25 MCG TABLET PO (05:33)
[2022-03-20] MEDS: LEVOTHYROXINE SODIUM 150 MCG TABLET PO (05:33)
[2022-03-20 05:53] LABS: Basophils Absolute Auto 0.1 K/mm3 (0.0-0.1); Basophils Percent Auto 0.5 % (0.2-1.2); Eosinophils Absolute Auto 0.1 K/mm3 (0-0.3); Eosinophils Percent Auto 0.5 % (0-4.4); Hematocrit 26.8 % (37.0-47.0); Hemoglobin 8.1 g/dL (12.0-15.0); Immature Granulocyte Absolute 0.19 K/mm3 (0.00-0.031); Immature Granulocyte Percent A 1.3 % (0-0.5); Lymphocytes Absolute Auto 1.78 K/mm3 (0.9-3.2); Lymphocytes Percent Auto 12.4 % (18.3-44.2); Mean Corpuscular HGB Conc 30.2 g/dl (32-36); Mean Corpuscular Volume 85.9 fl (80-100); Mean Platelet Volume 9.3 fl (7.4-10.4); Monocytes Absolute Auto 1.3 K/mm3 (0.1-0.6); Monocytes Percent Auto 9.2 % (2.6-8.5); Neutrophils Absolute Auto 10.9 K/mm3 (1.3-6.7); Neutrophils Percent Auto 76.1 % (45.5-73.1); Nucleated Red Blood Cells Perc 0.1 % (0.0-0.2); Platelet Count Result 509 k/mm3 (150-375); Red Blood Count 3.12 M/mm3 (4.2-5.4); Red Cell Distribution Width 17.3 % (11.5-14.5); White Blood Count 14.4 K/mm3 (4.5-10.0)
[2022-03-20 06:07] LABS: Alanine Aminotransferase 21 U/L (6-35); Albumin Level 3.9 g/dL (3.5-5.1); Alkaline Phosphatase 95 U/L (38-126); Anion Gap 15 mmol/L (8-16); Aspartate Amino Transferase 22 U/L (14-36); Bilirubin,Total 0.5 mg/dL (0.2-1.3); Blood Urea Nitrogen 109 mg/dL (7-17); Calcium 8.3 mg/dL (8.4-10.2); Carbon Dioxide 25 mmol/L (22-30); Chloride 90 mmol/L (98-107); Estimated CRCL calculation 19 ml/min; Estimated Glomerular Filt Rate 14; Glucose 213 mg/dL (65-110); Sodium 130 mmol/L (137-145)
[2022-03-20] MEDS: ALPRAZolam (*CRX) 0.5 MG TABLET PO ×2 (08:16→20:49)
[2022-03-20] MEDS: CYANOCOBALAMIN 1,000 MCG TABLET 2000 MCG PO (08:16)
[2022-03-20] MEDS: FLUTICASONE PROPIONATE 0.05% NA SPR 16 GM BTL (*BKC) 2 SPRAY NASAL (08:16)
[2022-03-20] MEDS: CLOPIDOGREL BISULFATE 75 MG TABLET PO (08:16)
[2022-03-20] MEDS: PANTOPRAZOLE 40 MG TABLET PO (08:17)
[2022-03-20] MEDS: ACETAMINOPHEN/BUTALBITAL/CAFFEINE 325-50-40 MG TABLET (FIORICET) 1 TAB PO (08:17)
[2022-03-20] MEDS: VERAPAMIL HCL 180 MG TABLET ER 360 MG PO (08:17)
[2022-03-20] MEDS: FERROUS SULFATE 324 MG TABLET PO ×2 (08:17→16:53)
[2022-03-20] MEDS: MONTELUKAST SODIUM 10 MG TABLET PO (08:17)
[2022-03-20] MEDS: GABAPENTIN 300 MG CAPSULE PO ×2 (08:17→20:49)
[2022-03-20 08:19] LABS: Glucose Point of Care 208 mg/dl (65-105)
[2022-03-20] MEDS: INSULIN ASPART (*BKC) 100 UNITS/ML SUB-Q ×3 (08:27→16:53)
[2022-03-20] MEDS: ALBUTEROL SULFATE (*SP) AEROSOL 1 PUFF 2 PUFF INHALATION ×3 (08:45→19:13)
[2022-03-20] MEDS: FLUTICASONE/UMECLIDIN/VILANTER 200-62.5-25 MCG ELLIPTA 1 PUFF INHALATION (08:45)
--- NOTE | 2022-03-20 08:50 | PM.IMPN ---
Progress Note: A&P Assessment and Plan (1) Anemia: Code(s): D64.9 - Anemia, unspecified Status: Acute Assessment and Plan: Appears to be at baseline, does receive Epogen, will defer to Nephrology for further management, no signs of a GI bleed at this time (2) CKD (chronic kidney disease): Code(s): N18.9 - Chronic kidney disease, unspecified Status: Acute Assessment and Plan: Appears to be worsening, will defer to Nephrology for further management, continue IV diuresis for now Escalated to IV Bumex per Nephrology, monitor Will likely need dialysis (3) DVT (deep venous thrombosis): Code(s): I82.409 - Acute embolism and thrombosis of unspecified deep veins of unspecified lower extremity Status: Acute Assessment and Plan: Heparin drip, hold Xarelto (4) Acute respiratory failure: Code(s): J96.00 - Acute respiratory failure, unspecified whether with hypoxia or hypercapnia Status: Acute Assessment and Plan: Supplemental oxygen as needed, suspect this will improve as pulmonary edema improves (5) Asthma-COPD overlap syndrome: Code(s): J44.9 - Chronic obstructive pulmonary disease, unspecified Status: Acute Assessment and Plan: Hold off on steroids, does not appear to be in acute exacerbation, continue home treatments (6) Hypertension: Code(s): I10 - Essential (primary) hypertension Status: Chronic Assessment and Plan: Stable (7) Acute on chronic diastolic heart failure: Code(s): I50.33 - Acute on chronic diastolic (congestive) heart failure Status: Acute Assessment and Plan: Appreciate cardiology consultation, fluid overload appears to be secondary to kidney disease, management per Nephrology (8) MARINA (acute kidney injury): Code(s): N17.9 - Acute kidney failure, unspecified Status: Acute Assessment and Plan: Appreciate nephrology management, she did need dialysis during her last admission, will diurese and monitor closely (9) RAINA (obstructive sleep apnea): Code(s): G47.33 - Obstructive sleep apnea (adult) (pediatric) Status: Acute Assessment and Plan: Continue CPAP at night as tolerated (10) Hypothyroidism (acquired): Code(s): E03.9 - Hypothyroidism, unspecified Status: Acute Assessment and Plan: Continue home medication, check TSH (11) ARACELY (generalized anxiety disorder): Code(s): F41.1 - Generalized anxiety disorder Status: Acute Assessment and Plan: Continue home Xanax (12) 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: Code(s): K22.70 - 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 Status: Acute Assessment and Plan: Stable (13) Chronic venous stasis dermatitis: Code(s): I87.2 - Venous insufficiency (chronic) (peripheral) Status: Acute Assessment and Plan: Worsened due to volume overload at this time, monitor Plan DVT prophylaxis with heparin drip GI prophylaxis not indicated Code status full code Subjective Date/time seen: 03/20/22 08:50 Interval history: No overnight events noted. No chest pain or shortness of breath. No nausea, vomiting or diarrhea. No fevers or chills. Patient appears much more somnolent and lethargic today. Review of Systems Review of Systems: ROS unobtainable: Yes unobtainable due to mental status Exam Narrative: General: Extremely somnolent, essentially unresponsive HEENT: Atraumatic, normocephalic, mucous membranes moist CV: Regular rate and rhythm, S1, S2 Lungs: Clear to auscultation bilaterally, good air entry, no wheezes or crackles noted Abdomen: Soft, nontender, nondistended Extremities: +1 pitting edema noted bilateral lower extremities, stable Skin: No rashes noted, no lesions or wounds seen Psych: Unable to assess Objective Data Vital Signs Vital Signs: Vital Signs - 24 hr 03/19/22 09:10 03/19/22 09:40 03/19/22 12:00
[2022-03-20 12:22] LABS: Glucose Point of Care 259 mg/dl (65-105)
--- NOTE | 2022-03-20 13:11 | PM.PNCARD ---
Progress Note: A&P Assessment and Plan (1) Acute on chronic diastolic heart failure: Code(s): I50.33 - Acute on chronic diastolic (congestive) heart failure Status: Acute Assessment and Plan: patient appears to be volume overloaded with poor response to diuretics thus far. Worsening renal failure prompting diuretics to be held to observe response. Per documented fluid balance she has positive nearly 2 L since admission. I suspect she will require hemodialysis for volume management particular given symptoms concerning for uremia. Defer to Nephrology in this regard. (2) [id number] kidney injury: Code(s): N17.9 - Acute kidney failure, unspecified; N18.9 - Chronic kidney disease, unspecified Status: Acute Assessment and Plan: As above, very high BUN concerning for uremia particular given altered mental status, nausea, poor appetite/oral intake and lack of Adequate response to diuretics. (3) Heart failure with preserved ejection fraction: Code(s): I50.30 - Unspecified diastolic (congestive) heart failure Status: Acute Assessment and Plan: patient remains somewhat volume overloaded suboptimal response to diuretic therapy. Patient has preserved LV systolic function this is most likely multifactorial etiology related to acute on chronic kidney failure, hypertensive heart disease, morbid obesity, diabetes mellitus. She does not have a history of CAD. (4) Altered mental status: Code(s): R41.82 - Altered mental status, unspecified Status: Acute Assessment and Plan: as above, concern most directly related to uremia. (5) Anemia: Code(s): D64.9 - Anemia, unspecified Status: Acute Assessment and Plan: Stable, follow H& H. Secondary to anemia of chronic disease. (6) Acute respiratory failure: Code(s): J96.00 - Acute respiratory failure, unspecified whether with hypoxia or hypercapnia Status: Acute Assessment and Plan: Stable on O2 supplementation. (7) RAINA (obstructive sleep apnea): Code(s): G47.33 - Obstructive sleep apnea (adult) (pediatric) Status: Acute Assessment and Plan: CPAP (8) DVT of lower extremity (deep venous thrombosis): Code(s): I82.409 - Acute embolism and thrombosis of unspecified deep veins of unspecified lower extremity Status: Acute Assessment and Plan: currently on heparin infusion. Plan 71-year-old lady with a history of Hypertensin, diastolic dysfunction and hypertensive nephrosclerosis with advancing renal failure, volume overload and symptomatic uremia despite diuretics. I think it is high probability that she now requires ongoing renal replacement therapy. She understands this. Nephrology consultation is pending once again. I do not believe there are any significant cardiac issues with which we can provide assistance with any of this. She does not have left ventricular systolic dysfunction this is not the so called cardial renal syndrome with low cardiac output. Uriel Gillette MD [facility] Subjective Date/time seen: Date of service: 03/20/22 13:11 Follow-up for history of diastolic heart failure, CKD patient's daughter and at bedside. Patient lethargic, arousable but with some difficulty. denied pain or shortness of breath. Admitted to feeling quite fatigued. Daughter at bedside states that she had eaten a little bit of breakfast but with some difficulty and has been much more sleepy today in general compared to yesterday. Bumex has been held today. Review of Systems Review of Systems: ROS unobtainable: Yes unobtainable due to medical condition and unobtainable due to mental status Constitutional: Constitutional: Reports fatigue and Reports lethargy Eyes: Eyes: Reports no additional eye complaints ENT: Reports system reviewed and no additional complaints, except as documented Cardiovascular: Cardiovascular: Report
--- NOTE | 2022-03-20 13:56 | P.PNNP_ITS ---
Progress Note: A&P Assessment and Plan (1) MARINA (acute kidney injury): Code(s): N17.9 - Acute kidney failure, unspecified Status: Acute Assessment and Plan: * creatinine up from baseline * presumably due to escalating diuretic therapy * however, urine output declining despite use of diuretics.... * I am worried she may require dialytic intervention again * follow trend with ongoing interventions * concerning that BUN is rising also - follow closely (since has history of overt uremia). (2) Stage 3b chronic kidney disease: Code(s): N18.32 - Chronic kidney disease, stage 3b Status: Chronic Assessment and Plan: * baseline creatinine runs ~ 1.6 - 2.2mg/dl * likely due to CAD/CHF, vascular disease, diabetes, and age-related change (3) Acute on chronic diastolic heart failure: Code(s): I50.33 - Acute on chronic diastolic (congestive) heart failure Status: Acute Assessment and Plan: * seems exacerbated by limited diuresis/diuretic resistance * was on IV bumex * holding diuretics today * perhaps she would be better with IV albumin chased by IV diuretics (but her serum albumin is normal) * follow daily weights and I/Os * Cardiology recommendations noted (4) Hypertension: Code(s): I10 - Essential (primary) hypertension Status: Chronic Assessment and Plan: * slightly up at this time * likely precipitated by MARINA and volume overload * follow trend of hemodynamics (5) Anemia: Code(s): D64.9 - Anemia, unspecified Status: Acute Assessment and Plan: * likely due to CKD, and acute illness * consider Epogen depending on hospital course * follow H/H (6) Type 2 diabetes mellitus with hyperglycemia: Code(s): E11.65 - Type 2 diabetes mellitus with hyperglycemia Status: Chronic Assessment and Plan: * follow accuchecks * glycemic control Another long/extensive discussion (> 20 minutes) with at bedside and daughter by phone regarding patient's declining kidney function and apparent diuretic resistance since hospitalization and my concern she may need dialytic intervention again; they appeared to voice understanding; would plan PermCath placement if dialysis needed as suspect she may outpatient dialysis for a period of time as well. Will see what her AM labs show. Will continue to follow. Subjective Date/time seen: 03/20/22 13:56 BUN and creatinine continue to rise with IV diuretic therapy but more concerning is the fact her urine output is declining in spite of diuretic therapy; furthermore, family reports fluctuating lethargy in the last 24 hours; respirato ry status/edema unchanged. Exam Narrative: General: WD/WN in NAD Heart: normal S1 and S2; no rub Lungs: coarse breath sounds; diminished at bases associated with a few crackles Abdomen: soft, nontender, nondistended, positive bowel sounds Extremities: no cyanosis or clubbing; 1+ edema Skin: warm and dry Objective Data Vital Signs Vital Signs: Vital Signs Temp Pulse Resp BP Pulse Ox O2 Del Method O2 Flow Rate 03/20/22 12:00 80 03/20/22 08:00 95 Nasal Cannula 2 03/20/22 08:00 79 03/20/22 08:46 95 Nasal Cannula 2 03/20/22 06:00 36.7 C 73 16 154/87 H 100 03/20/22 04:00 73 03/20/22 00:00 88 03/19/22 20:0
--- NOTE | 2022-03-20 13:56 | PM.PNNEP ---
Progress Note: A&P Assessment and Plan (1) MARINA (acute kidney injury): Code(s): N17.9 - Acute kidney failure, unspecified Status: Acute Assessment and Plan: creatinine up from baseline presumably due to escalating diuretic therapy however, urine output declining despite use of diuretics.... I am worried she may require dialytic intervention again follow trend with ongoing interventions concerning that BUN is rising also - follow closely (since has history of overt uremia). (2) Stage 3b chronic kidney disease: Code(s): N18.32 - Chronic kidney disease, stage 3b Status: Chronic Assessment and Plan: baseline creatinine runs ~ 1.6 - 2.2mg/dl likely due to CAD/CHF, vascular disease, diabetes, and age-related change (3) Acute on chronic diastolic heart failure: Code(s): I50.33 - Acute on chronic diastolic (congestive) heart failure Status: Acute Assessment and Plan: seems exacerbated by limited diuresis/diuretic resistance was on IV bumex holding diuretics today perhaps she would be better with IV albumin chased by IV diuretics (but her serum albumin is normal) follow daily weights and I/Os Cardiology recommendations noted (4) Hypertension: Code(s): I10 - Essential (primary) hypertension Status: Chronic Assessment and Plan: slightly up at this time likely precipitated by MARINA and volume overload follow trend of hemodynamics (5) Anemia: Code(s): D64.9 - Anemia, unspecified Status: Acute Assessment and Plan: likely due to CKD, and acute illness consider Epogen depending on hospital course follow H/H (6) Type 2 diabetes mellitus with hyperglycemia: Code(s): E11.65 - Type 2 diabetes mellitus with hyperglycemia Status: Chronic Assessment and Plan: follow accuchecks glycemic control Another long/extensive discussion (> 20 minutes) with at bedside and daughter by phone regarding patient's declining kidney function and apparent diuretic resistance since hospitalization and my concern she may need dialytic intervention again; they appeared to voice understanding; would plan PermCath placement if dialysis needed as suspect she may outpatient dialysis for a period of time as well. Will see what her AM labs show. Will continue to follow. Subjective Date/time seen: 03/20/22 13:56 BUN and creatinine continue to rise with IV diuretic therapy but more concerning is the fact her urine output is declining in spite of diuretic therapy; furthermore, family reports fluctuating lethargy in the last 24 hours; respiratory status/edema unchanged. Exam Narrative: General: WD/WN in NAD Heart: normal S1 and S2; no rub Lungs: coarse breath sounds; diminished at bases associated with a few crackles Abdomen: soft, nontender, nondistended, positive bowel sounds Extremities: no cyanosis or clubbing; 1+ edema Skin: warm and dry Objective Data Vital Signs Vital Signs: Vital Signs Temp Pulse Resp BP Pulse Ox O2 Del Method O2 Flow Rate 03/20/22 12:00 80 03/20/22 08:00 95 Nasal Cannula 2 03/20/22 08:00 79 03/20/22 08:46 95 Nasal Cannula 2 03/20/22 06:00 36.7 C 73 16 154/87 H 100 03/20/22 04:00 73 03/20/22 00:00 88 03/19/22 20:00 107 H 03/19/22 21:28 36.7 C 108 H 24 H 143/88 H 98 Intake/Output Intake/Output: Intake & Output 03/17/22 03/18/22 03/19/22 03/20/22 23:59 23:59 23:59 23:59 Intake Total 1100 1370 1420 480 Output Total 200 1075 625 200 Balance 900 295 795 280 Meds/Results Medications: Active Medications Generic Name Dose Route Start Last Admin Trade Name Freq PRN Reason Stop Dose Admin Acetaminophen 650 mg 03/17/22 11:13 03/19/22 12:34 Acetaminophen 325 Mg Tablet PO 650 mg Q6H PRN Administration Mild Pain (1-3) or Fever Acetaminophen/Butalbital/Caffeine 1
[2022-03-20 17:08] LABS: Glucose Point of Care 253 mg/dl (65-105)
--- NOTE | 2022-03-20 18:52 | PCRCNOTE ---
Window of time for administration has passed. See next scheduled administration.
[2022-03-20] MEDS: HEPARIN SOD/D5W 100 UNITS/ML 25,000 UNITS/250 ML BAG 13 UNITS IV CONT (19:25)
[2022-03-20] MEDS: MELATONIN 5 MG TABLET PO (20:49)
[2022-03-20] MEDS: INSULIN GLARGINE (*BKC) 100 UNITS/ML 40 UNITS SUB-Q (20:51)
[2022-03-20 21:20] LABS: Glucose Point of Care 267 mg/dl (65-105)
[2022-03-20 21:20] LABS: Glucose Point of Care 464 mg/dl (65-105)
[2022-03-21] VITALS (18 sets, daily range): BP systolic 132–168; BP diastolic 47–88; PULSE 74–120; RESP 13–19; TEMP 36.1–37; O2SAT 94–100
[2022-03-21] MEDS: LEVOTHYROXINE SODIUM 150 MCG TABLET PO (05:35)
[2022-03-21] MEDS: LEVOTHYROXINE SODIUM 25 MCG TABLET PO (05:35)
[2022-03-21 05:50] LABS: Alanine Aminotransferase 20 U/L (6-35); Albumin Level 3.8 g/dL (3.5-5.1); Alkaline Phosphatase 93 U/L (38-126); Anion Gap 15 mmol/L (8-16); Aspartate Amino Transferase 22 U/L (14-36); Bilirubin,Total 0.5 mg/dL (0.2-1.3); Blood Urea Nitrogen 115 mg/dL (7-17); Calcium 8.4 mg/dL (8.4-10.2); Carbon Dioxide 26 mmol/L (22-30); Chloride 90 mmol/L (98-107); Estimated CRCL calculation 19 ml/min; Estimated Glomerular Filt Rate 14; Glucose 207 mg/dL (65-110); Sodium 131 mmol/L (137-145)
[2022-03-21 05:52] LABS: Partial Thromboplastin Time 55.5 SECONDS (22.3-36.8)
[2022-03-21 06:25] LABS: Basophils Absolute Auto 0.1 K/mm3 (0.0-0.1); Basophils Percent Auto 0.4 % (0.2-1.2); Eosinophils Absolute Auto 0.1 K/mm3 (0-0.3); Eosinophils Percent Auto 0.8 % (0-4.4); Hematocrit 25.7 % (37.0-47.0); Hemoglobin 7.6 g/dL (12.0-15.0); Immature Granulocyte Absolute 0.23 K/mm3 (0.00-0.031); Immature Granulocyte Percent A 1.6 % (0-0.5); Lymphocytes Absolute Auto 1.68 K/mm3 (0.9-3.2); Lymphocytes Percent Auto 11.9 % (18.3-44.2); Mean Corpuscular HGB Conc 29.6 g/dl (32-36); Mean Corpuscular Hemoglobin 24.8 pg (26-34); Mean Platelet Volume 9.7 fl (7.4-10.4); Monocytes Absolute Auto 1.5 K/mm3 (0.1-0.6); Monocytes Percent Auto 10.4 % (2.6-8.5); Neutrophils Absolute Auto 10.5 K/mm3 (1.3-6.7); Neutrophils Percent Auto 74.9 % (45.5-73.1); Nucleated Red Blood Cells Perc 0.1 % (0.0-0.2); Platelet Count Result 523 k/mm3 (150-375); Red Blood Count 3.06 M/mm3 (4.2-5.4); Red Cell Distribution Width 17.4 % (11.5-14.5); White Blood Count 14.1 K/mm3 (4.5-10.0)
--- NOTE | 2022-03-21 06:44 | PC.NURSE ---
Pt is consulted to general surgery this morning by Dr. Rios to place tunnel cath for dialysis this morning. Spoke to who was informed about the consult and informed about that patient is on heparin ggt. Heparin gtt order was given to be stopped and pt to be NPO. Next appt order will depend on when the tunnel cath can be placed based on the conversation. No further orders were given.
[2022-03-21 07:10] LABS: Anisocytosis 1+ (NORMAL); Platelet Clumps Present; Platelet Estimate Increased (Adequate); Polychromasia 1+ (NORMAL); Schistocytes None Seen (NORMAL)
--- NOTE | 2022-03-21 08:19 | PCPTNOTE ---
Attempted to see patient for PT at this time, however unable due to patient unable to be aroused.
[2022-03-21 08:26] LABS: Glucose Point of Care 181 mg/dl (65-105)
[2022-03-21] MEDS: ALBUTEROL SULFATE (*SP) AEROSOL 1 PUFF 2 PUFF INHALATION ×3 (08:40→21:24)
[2022-03-21] MEDS: FLUTICASONE/UMECLIDIN/VILANTER 200-62.5-25 MCG ELLIPTA 1 PUFF INHALATION (08:40)
--- NOTE | 2022-03-21 08:45 | PC.NURSE ---
Patient difficult to arouse and not verbally responsive. Patient unable to take PO medications at this time. Vitals are within normal limits. Arc Air Operator called Dr. Kathleen at [phone] and no answer.
--- NOTE | 2022-03-21 10:09 | PC.NURSE ---
Director Of Preclinical Research called Dr. Kathleen at [phone] and no response. Director Of Preclinical Research called Hospitalist Office ext. [phone] at [phone] and a page to her was sent out.
--- NOTE | 2022-03-21 10:15 | PC.NURSE ---
Cargo Inspector spoke with Dr. Kathleen and PO medications ordered to not be given as patient is not verbally responsive. Dr. Kathleen verbally stated to contact Dr. Avelar regarding Heparin Drip as we need an order for when Heparin Drip needs to be stopped and restarted due to scheduled surgery at 1800 on 03/21/2022. Left message with depalletizer operator at [facility] regarding these concerns. Waiting to here back at this time. Cargo Inspector asked Dr Ktahleen for ABG orders as patient appears slightly short of breath and sports writer noticed labor breathing. Dr. Kathleen responded that an updated ABG is not needed at this time and that dialysis is what the patient will benefit from.
--- NOTE | 2022-03-21 10:55 | PM.PNNEP ---
Progress Note: A&P Assessment and Plan (1) MARINA (acute kidney injury): Code(s): N17.9 - Acute kidney failure, unspecified Status: Acute Assessment and Plan: creatinine up from baseline presumably due to escalating diuretic therapy however, urine output declining despite use of diuretics as well now with lethargy - this is likely early uremia follow trend with ongoing interventions suspect will need dialysis again...Surgery consulted for HD catheter placement proceed with dialysis once HD catheter in place hopefully dialysis is temporary again but I worry this her second bout of MARINA/ARF in the last month follow trend of repeat labs and UOP she may need outpatient dialysis this time.... (2) Stage 3b chronic kidney disease: Code(s): N18.32 - Chronic kidney disease, stage 3b Status: Chronic Assessment and Plan: baseline creatinine runs ~ 1.6 - 2.2mg/dl likely due to CAD/CHF, vascular disease, diabetes, and age-related change (3) Acute on chronic diastolic heart failure: Code(s): I50.33 - Acute on chronic diastolic (congestive) heart failure Status: Acute Assessment and Plan: seems exacerbated by limited diuresis/diuretic resistance was on IV bumex holding diuretics due to rising BUN follow daily weights and I/Os Cardiology recommendations noted (4) Hypertension: Code(s): I10 - Essential (primary) hypertension Status: Chronic Assessment and Plan: slightly up at this time likely precipitated by MARINA and volume overload follow trend of hemodynamics (5) Anemia: Code(s): D64.9 - Anemia, unspecified Status: Acute Assessment and Plan: likely due to CKD, and acute illness consider Epogen depending on hospital course follow H/H (6) Type 2 diabetes mellitus with hyperglycemia: Code(s): E11.65 - Type 2 diabetes mellitus with hyperglycemia Status: Chronic Assessment and Plan: follow accuchecks glycemic control Will continue to follow. Subjective Date/time seen: 03/21/22 10:55 Lethargic and sleepy at the time of my visit; wakes up briefly to stimulation but then quickly falls back to sleep; no other apparent issues/events noted overnight or earlier this morning. Exam Narrative: General: WD/WN in NAD but lethargic/sleepy Heart: normal S1 and S2; no rub Lungs: coarse breath sounds; diminished at bases associated with a few crackles Abdomen: soft, nontender, nondistended, positive bowel sounds Extremities: no cyanosis or clubbing; 1+ edema Skin: warm and intact Objective Data Vital Signs Vital Signs: Vital Signs Temp Pulse Resp BP Pulse Ox O2 Del Method O2 Flow Rate 03/21/22 08:00 97 Nasal Cannula 2 03/21/22 06:00 37.0 C 80 18 140/88 97 03/21/22 04:00 80 03/21/22 00:00 83 03/20/22 20:00 80 18 97 Nasal Cannula 2 03/20/22 20:00 79 03/20/22 21:51 36.9 C 80 18 139/85 97 03/20/22 19:20 76 16 97 Nasal Cannula 2 03/20/22 19:17 76 16 03/20/22 16:00 74 03/20/22 14:08 Nasal Cannula 2 03/20/22 14:00 36.6 C 77 16 150/72 H 99 Intake/Output Intake/Output: Intake & Output 03/18/22 03/19/22 03/20/22 03/21/22 23:59 23:59 23:59 23:59 Intake Total 1370 1420 730 Output Total 1075 625 550 350 Balance 295 795 180 -350 Meds/Results Medications: Active Medications Generic Name Dose Route Start Last Admin Trade Name Freq PRN Reason Stop Dose Admin Acetaminophen 650 mg 03/17/22 11:13 03/19/22 12:34 Acetaminophen 325 Mg Tablet PO 650 mg Q6H PRN Administration Mild Pain (1-3) or Fever Albuterol 2 puff 03/17/22 12:00 03/20/22 19:13 Albuterol Sulfate (*Sp) Aerosol 1 Puff INHALATION 2 puff QIDRT ALINA Administration Alprazolam 0.5 mg 03/18/22 21:00 03/21/22 10:33 Alprazolam (*Crx) 0.5 Mg Tablet PO Not Given Q12HR [facility] [place]
--- NOTE | 2022-03-21 10:55 | P.PNNP_ITS ---
Progress Note: A&P Assessment and Plan (1) MARINA (acute kidney injury): Code(s): N17.9 - Acute kidney failure, unspecified Status: Acute Assessment and Plan: * creatinine up from baseline * presumably due to escalating diuretic therapy * however, urine output declining despite use of diuretics as well * now with lethargy - this is likely early uremia * follow trend with ongoing interventions * suspect will need dialysis again...Surgery consulted for HD catheter placement * proceed with dialysis once HD catheter in place * hopefully dialysis is temporary again but I worry this her second bout of MARINA/ARF in the last month * follow trend of repeat labs and UOP * she may need outpatient dialysis this time.... (2) Stage 3b chronic kidney disease: Code(s): N18.32 - Chronic kidney disease, stage 3b Status: Chronic Assessment and Plan: * baseline creatinine runs ~ 1.6 - 2.2mg/dl * likely due to CAD/CHF, vascular disease, diabetes, and age-related change (3) Acute on chronic diastolic heart failure: Code(s): I50.33 - Acute on chronic diastolic (congestive) heart failure Status: Acute Assessment and Plan: * seems exacerbated by limited diuresis/diuretic resistance * was on IV bumex * holding diuretics due to rising BUN * follow daily weights and I/Os * Cardiology recommendations noted (4) Hypertension: Code(s): I10 - Essential (primary) hypertension Status: Chronic Assessment and Plan: * slightly up at this time * likely precipitated by MARINA and volume overload * follow trend of hemodynamics (5) Anemia: Code(s): D64.9 - Anemia, unspecified Status: Acute Assessment and Plan: * likely due to CKD, and acute illness * consider Epogen depending on hospital course * follow H/H (6) Type 2 diabetes mellitus with hyperglycemia: Code(s): E11.65 - Type 2 diabetes mellitus with hyperglycemia Status: Chronic Assessment and Plan: * follow accuchecks * glycemic control Will continue to follow. Subjective Date/time seen: 03/21/22 10:55 Lethargic and sleepy at the time of my visit; wakes up briefly to stimulation but then quickly falls back to sleep; no other apparent issues/events noted overnight or earlier this morning. Exam Narrative: General: WD/WN in NAD but lethargic/sleepy Heart: normal S1 and S2; no rub Lungs: coarse breath sounds; diminished at bases associated with a few crackles Abdomen: soft, nontender, nondistended, positive bowel sounds Extremities: no cyanosis or clubbing; 1+ edema Skin: warm and intact Objective Data Vital Signs Vital Signs: Vital Signs Temp Pulse Resp BP Pulse Ox O2 Del Method O2 Flow Rate 03/21/22 08:00 97 Nasal Cannula 2 03/21/22 06:00 37.0 C 80 18 140/88 97 03/21/22 04:00 80 03/21/22 00:00 83 03/20/22 20:00 80 18 97 Nasal Cannula 2 03/20/22 20:00 79 03/20/22 21:51 36.9 C 80 18 139/85 97 03/20/22 19:20 76 16 97 Nasal Cannula 2 03/20/22 19:17 76 16 03/20/22 16:00 74 03/20/22 14:08 Nasal Cannula 2 03/20/22 14:00 36.6 C 77 16 150/72 H 99 Intake/Output Intake/Output: Intake & Output
--- NOTE | 2022-03-21 11:22 | PM.IMPN ---
Progress Note: A&P Assessment and Plan (1) Altered mental status: Code(s): R41.82 - Altered mental status, unspecified Status: Acute Assessment and Plan: suspect this is secondary to uremia despite creat numbers being quite moderate, BUN is climbing significantly, GFR unchanged at 14 (2) Anemia: Code(s): D64.9 - Anemia, unspecified Status: Acute Assessment and Plan: Appears to be at baseline, does receive Epogen, will defer to Nephrology for further management, no signs of a GI bleed at this time (3) CKD (chronic kidney disease): Code(s): N18.9 - Chronic kidney disease, unspecified Status: Acute Assessment and Plan: Getting catheter placed for dialysis (4) DVT (deep venous thrombosis): Code(s): I82.409 - Acute embolism and thrombosis of unspecified deep veins of unspecified lower extremity Status: Acute Assessment and Plan: Heparin drip, hold Xarelto (5) Acute respiratory failure: Code(s): J96.00 - Acute respiratory failure, unspecified whether with hypoxia or hypercapnia Status: Acute Assessment and Plan: Supplemental oxygen as needed, suspect this will improve as pulmonary edema improves (6) Asthma-COPD overlap syndrome: Code(s): J44.9 - Chronic obstructive pulmonary disease, unspecified Status: Acute Assessment and Plan: Hold off on steroids, does not appear to be in acute exacerbation, continue home treatments (7) Hypertension: Code(s): I10 - Essential (primary) hypertension Status: Chronic Assessment and Plan: Stable (8) Acute on chronic diastolic heart failure: Code(s): I50.33 - Acute on chronic diastolic (congestive) heart failure Status: Acute Assessment and Plan: Appreciate cardiology consultation, fluid overload appears to be secondary to kidney disease, management per Nephrology (9) MARINA (acute kidney injury): Code(s): N17.9 - Acute kidney failure, unspecified Status: Acute Assessment and Plan: Appreciate nephrology management, she did need dialysis during her last admission, anticipating dialysis soon (10) RAINA (obstructive sleep apnea): Code(s): G47.33 - Obstructive sleep apnea (adult) (pediatric) Status: Acute Assessment and Plan: Continue CPAP at night as tolerated (11) Hypothyroidism (acquired): Code(s): E03.9 - Hypothyroidism, unspecified Status: Acute Assessment and Plan: Continue home medication TSH elevated, follow-up outpatient (12) ARACELY (generalized anxiety disorder): Code(s): F41.1 - Generalized anxiety disorder Status: Acute Assessment and Plan: Hold Xanax for now due to altered mental status (13) 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: Code(s): K22.70 - 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 Status: Acute Assessment and Plan: Stable (14) Chronic venous stasis dermatitis: Code(s): I87.2 - Venous insufficiency (chronic) (peripheral) Status: Acute Assessment and Plan: Worsened due to volume overload at this time, monitor Plan DVT prophylaxis with heparin drip, hold for dialysis catheter placement GI prophylaxis not indicated Code status full code Subjective Date/time seen: 03/21/22 11:22 Interval history: No overnight events noted. No chest pain or shortness of breath. No nausea, vomiting or diarrhea. No fevers or chills. Patient essentially unresponsive and lethargic. Review of Systems Review of Systems: ROS unobtainable: Yes unobtainable due to mental status Exam Narrative: General: Unresponsive at this time HEENT: Atraumatic, normocephalic, mucous membranes moist CV: Regular rate and rhythm, S1, S2 Lungs: Clear to auscultation bilaterally, good air entry, no wheezes or crackles noted Abdomen: Soft, nontender, nondistended Extremities: +1 pitting edema noted bilateral lower extremities, stable Skin:
--- NOTE | 2022-03-21 11:43 | PCOTNOTE ---
Attempted to see pt. for occupational therapy. Pt. is currently unarousable. Nursing aware. Following.
[2022-03-21 12:29] LABS: Glucose Point of Care 149 mg/dl (65-105)
[2022-03-21] MEDS: FLUTICASONE PROPIONATE 0.05% NA SPR 16 GM BTL (*BKC) 2 SPRAY NASAL (13:13)
[2022-03-21] MEDS: PANTOPRAZOLE SODIUM IV 40 MG VIAL IV PUSH (13:13)
--- NOTE | 2022-03-21 14:15 | PM.CNGS ---
Assessment and Plan Assessment and plan (1) Eyclv-lc-hpmkfnj kidney injury: Code(s): N17.9 - Acute kidney failure, unspecified; N18.9 - Chronic kidney disease, unspecified Status: Acute Assessment and Plan: will setup for emergent tunneled hemodialysis placement, extensive d/w family and they wish to proceed (2) DVT of lower extremity (deep venous thrombosis): Code(s): I82.409 - Acute embolism and thrombosis of unspecified deep veins of unspecified lower extremity Status: Acute Assessment and Plan: cont to hold Heparin gtt History of Present Illness Consult details Consult date: 03/21/22 Reason for consult: other (renal failure) Requesting physician: Dimas Rios MD Narrative: Pt is a 71 y/o F c multiple med issues presenting c acute on chronic renal failure. Pt had emergent HD in February via a RIJ vascath but only required 4 treatments before return of kidney function and catheter was subsequently removed. Pt now again c worsening renal failure despite maximal medical therapy. Pt will now need further emergent HD on a more permanent basis and we are consulted for tunneled HD cath. Pt is pretty weak and lethargic and history is obtained via chart and family. Review of Systems Review of Systems: ROS unobtainable: Yes unobtainable due to medical condition and unobtainable due to mental status PMFSH Past Medical History Medical History 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 Chronic diastolic (congestive) heart failure Chronic kidney disease, stage 3 unspecified Chronic kidney disease, stage III (moderate) COPD (chronic obstructive pulmonary disease) Coronary artery disease involving [place] heart without angina pectoris Depression DVT (deep venous thrombosis) ARACELY (generalized anxiety disorder) GERD without esophagitis History of stroke Hypertensive heart disease with heart failure and stage 3 chronic kidney disease Hypothyroid Left knee DJD Long-term insulin use Peripheral polyneuropathy Pre-ulcerative calluses Sepsis Type 2 diabetes mellitus with hyperglycemia Family History Family History Father Hypertension Family history of coronary artery disease Sibling Hypertension Family history of coronary artery disease Mother Cerebrovascular accident Other Asthma Depression Family history of Alzheimer's disease Family history of arthritis Family history of cardiovascular disease Family history of lymphoma Family history of obesity Family history of seizure disorder Social History Social History Smoking packs per day: 2 Smoking cigarettes per day: 40.0 Years smoked: 20 Smoking pack-years: 40.00 Smoking status: Former smoker Tobacco type: cigarettes Second hand tobacco smoke exposure: No Smoking end date: 05/07/87 Alcohol intake: current Drinks per week: 1 Alcohol use details: 1/MONTH Substance use: current Substance use type: marijuana Lack of Transportation: No Lack of Food: Never True Current Housing: I Have Housing Concerned About Future Housing: No Difficulty Paying Gas/Electric Bills: No Difficulty Paying for Meds: No Currently Unemployed: No Education: Bachelor's Degree Difficulty w/ Childcare or Family Care: No Gender identity (if verbalized by the patient): Female Spiritual care concerns: No Meds Home Medications and Allergies Home Medications Medication Instructions Recorded Confirmed Type cyanocobalamin (vitamin B-12) 2,000 mcg PO DAILY 03/19/19 03/17/22 History 2,000 mcg tablet,extended release (Vitamin B-12 ER) fluticasone propionate 50 2 spray intranasal DAILY 03/19/19 03/17/22 History mcg/actuation nasal spray,suspension ferrous sulfate 325 mg (65 mg 325 mg PO BID #180 tabs 11/22/20 03/17/22 Rx iron) tablet,delay
--- NOTE | 2022-03-21 14:31 | WPDANESEPPF ---
Anes - Initial Pre Proc Eval Procedure: Operation Date: 03/21/22 18:00 Proposed Procedures p Insertion Tunneled Dialysis Catheter - Angi Avelar MD Date/Time: 03/21/22 14:31 Surgeon: Gwen Jaimes DO Pre Op Diagnosis: hypoxia,CKD,dyspnea Patient Data Age: 71 Gender: F Height: 1.63 m Weight: 132 kg Last Vital Signs Temp 37.0 C 03/21/22 06:00 Pulse 80 03/21/22 06:00 Resp 18 03/21/22 06:00 BP 140/88 03/21/22 06:00 Pulse Ox 94 03/21/22 08:40 O2 Del Method Nasal Cannula 03/21/22 13:15 O2 Flow Rate 2 03/21/22 13:15 Allergies Allergy/AdvReac Type Severity Reaction Status Date / Time diphenhydramine Allergy Unknown restless Verified 03/17/22 06:28 legs nickel Allergy Unknown hives and Verified 03/17/22 06:28 itchy rash nifedipine Allergy Unknown palpitation Verified 03/17/22 06:28 s Sulfa (Sulfonamide Allergy Unknown Urticaria Verified 03/17/22 06:28 Antibiotics) and hives Feqruzm-AWZ-FpF Reductase AdvReac Intermediate muscle Verified 03/17/22 06:28 Inhibitor cramps [Jpbmjja-Azc-Dvb Reductase Inhibitor] CALCIUMCHANNEL AdvReac Unknown SEE COMMIT Uncoded 03/17/22 06:28 Home Medications Medication Instructions Recorded Confirmed Type cyanocobalamin (vitamin B-12) 2,000 mcg PO DAILY 03/19/19 03/17/22 History 2,000 mcg tablet,extended release (Vitamin B-12 ER) fluticasone propionate 50 2 spray intranasal DAILY 03/19/19 03/17/22 History mcg/actuation nasal spray,suspension ferrous sulfate 325 mg (65 mg 325 mg PO BID #180 tabs 11/22/20 03/17/22 Rx iron) tablet,delayed release insulin glargine 100 unit/mL (3 40 unit subcut HS 07/04/21 03/17/22 History mL) subcutaneous pen (Lantus Solostar U-100 Insulin) insulin syringe-needle U-100 1 mL #100 ea 10/14/21 03/17/22 Rx 31 gauge x 5/16 (BD Insulin Syringe Ultra-Fine) montelukast 10 mg tablet 10 mg PO QAM 11/22/21 03/17/22 History clopidogrel 75 mg tablet (Plavix) 75 mg PO DAILY #90 tabs 12/05/21 03/17/22 Rx albuterol sulfate 90 mcg/actuation 2 puff inhalation QID 02/11/22 03/17/22 History aerosol inhaler (Ventolin HFA) insulin aspart U-100 100 unit/mL 10 - 30 sliding scale dose subcut 02/11/22 03/17/22 History (3 mL) subcutaneous pen (Novolog TIDWM Flexpen U-100 Insulin aspart) verapamil 360 mg 24 hr 360 mg PO DAILY 02/11/22 03/17/22 History capsule,extended release blood sugar diagnostic (OneTouch #400 ea 02/20/22 03/17/22 Rx Verio test strips) fluticasone fur. 200 mcg-umeclid 1 puff inhalation DAILYRT #1 ea 02/28/22 03/17/22 Rx 62.5 mcg-vilant 25 mcg inhalat.powder (Trelegy Ellipta) gabapentin 300 mg capsule 300 mg PO BID #60 caps 02/28/22 03/17/22 Rx (Neurontin) rivaroxaban 20 mg tablet (Xarelto) 20 mg PO DAILY 1 month #30 tabs 03/01/22 03/17/22 Rx pantoprazole 40 mg tablet,delayed 40 mg PO QAM #90 tabs 03/06/22 03/17/22 Rx release alprazolam 0.5 mg tablet 0.5 mg PO BID #60 tabs 03/09/22 03/17/22 Rx tramadol 50 mg tablet 50 mg PO Q12H PRN pain #30 tabs 03/09/22 03/17/22 Rx flash glucose scanning reader #1 ea 03/14/22 03/17/22 Rx (FreeStyle Nica 2 Dolores) flash glucose sensor (FreeStyle #6 ea 03/14/22 03/17/22 Rx Nica 2 Sensor kit) glucagon 3 mg/actuation nasal spray 3 mg intranasal ONCE #2 ea 03/14/22 03/17/22 Rx insulin syringe-needle U-100 1 mL #10 ea 03/14/22 03/17/22 History 31 gauge x 15/64 (BD Veo Insulin Syringe Ultra-Fine) levothyroxine 200 mcg tablet 175 mcg PO DAILY 03/14/22 03/17/22 History (Synthroid) Laboratory Tests 03/20/22 03/20/22 03/20/22 16:52 20:19 20:22 WBC RBC Hgb Hct MCV MCH MCHC RDW Plt Count MPV Immature Gran % (Auto) Neut % (Auto) Lymph % (Auto) [place] % (Auto) Eos % (Auto) Baso % (Auto)
[2022-03-21] MEDS: SODIUM CHLORIDE 0.9% IV 500 ML 30 ML IV CONT (14:53)
--- NOTE | 2022-03-21 14:54 | WPDHPUPDATE1 ---
History and Physical Update Update Date/Time: 03/21/22 14:54 History and Physical has been reviewed, including an updated exam of the patient. There are NO changes in the patient's condition. Risks, benefits, and alternatives have been discussed and questions answered. Patient agrees to proceed with procedure.
[2022-03-21] MEDS: ceFAZolin 2 GM/D5W 50 ML 2 GM/50 ML BAG IVPB (15:01)
[2022-03-21] MEDS: BUPIVACAINE/EPINEPHRINE 0.25% 50 ML VIAL INFILTRATE (15:22)
[2022-03-21] MEDS: HEPARIN SODIUM 5,000 UNITS/ML VIAL 5000 UNITS SUB-Q (15:23)
[2022-03-21] MEDS: HEPARIN SODIUM, PORCINE 10,000 UNITS/10 ML VIAL 10000 UNITS IRRIGATION (15:25)
--- NOTE | 2022-03-21 15:45 | W.PM.PROC2 ---
Procedure Note - Detailed Date of Procedure 03/21/22 Pre-op Diagnosis Acute on Chronic Renal Failure Post-op Diagnosis Same Procedure Performed Right internal jugular tunneled dialysis catheter placement using ultrasound and fluoroscopic guidance Surgeon Morales Aleman, DO Anesthesia MAC and Local (1% lidocaine with epinephrine) Indications This is a 71-year-old woman who presented with worsening renal failure and congestive heart failure. She was on dialysis for a short course about 1 month ago about her kidney function did appear to recover. She is requiring increased amounts of diuretics for worsening congestive heart failure but her urine output has diminished and her BUN and creatinine continued to rise. Nephrology has been following patient and they are now recommending resuming dialysis. She is in need of tunneled dialysis catheter placement to begin dialysis again. Findings SonoSite ultrasound was used to identify the right internal jugular vein. This was visualized as a compressible vessel just lateral to the pulsatile right carotid artery. An 18 gauge introducer needle was advanced under ultrasound guidance. Dark nonpulsatile blood was aspirated. Fluoroscopy was then used to guide advancement of the guidewire followed by the dilator and sheath. The dialysis catheter was then advanced under fluoroscopic guidance into the distal SVC. Final fluoroscopic images demonstrated the catheter tip in proper position and no kinks along the path. Description of Procedure Procedure as well as risks, benefits, and alternatives were discussed with patient. Written consent was obtained and placed in chart prior to procedure. Patient was brought back to surgical suite. Placed supine on operating table. Time-out was done confirm patient procedure. IV sedation was then administered by the Anesthesia Department. Her right chest and neck area was prepped and draped in sterile fashion using chlorhexidine prep. Patient was placed in Trendelenburg position. SonoSite ultrasound was used to identify the right internal jugular vein. It was visualized as a compressible vessel just lateral to the carotid artery. 1% lidocaine with epinephrine was infiltrated directly over the vessel under ultrasound guidance. An 18 gauge introducer needle was then advanced under ultrasound guidance directly into the right internal jugular vein. Dark nonpulsatile blood was aspirated. A 0.035 in guidewire was then advanced through the needle under fluoroscopic guidance. The guidewire was visualized advancing all the way down into the superior vena cava. 1% lidocaine with epinephrine was then infiltrated on the right anterior chest and along the tract up to the guidewire insertion site. A 5 mm incision was made with a 15 blade scalpel. A small susana incision was then also made at the insertion site at the neck. The tunneler was then advanced from the chest incision up to the neck incision and the catheter tubing was brought up through this tract. The dilator and sheath were then advanced over the guidewire under fluoroscopic visualization. The dilator and guidewire were then removed leaving the sheath in place. The catheter tubing was then advanced through the sheath under fluoroscopic guidance. The sheath was unsnapped and carefully peeled away. The catheter tubing was released underneath the neck incision. Fluoroscopy was used to confirm proper placement of the catheter tubing and no kinks along its path. The catheter was then hep-locked with Hep-Lock solution. The skin of the incisions was then approximated using 4-0 Monocryl subcuticular suture. Exofin glue was then applied at the neck incision and 2x2 gauze and Tegaderm drassing applied at the chest. The patient was then awakened from anesthesia and transferred to recovery. Implants 28 cm [id number] dialysis catheter Estimated Blood Loss 10 Urine Output 200 Complications No immediate complications Condition Stable D
[2022-03-21 15:47] LABS: Glucose Point of Care 146 mg/dl (65-105)
[2022-03-21 17:17] LABS: Glucose Point of Care 120 mg/dl (65-105)
[2022-03-21] MEDS: FERROUS SULFATE 324 MG TABLET PO (17:28)
[2022-03-21] MEDS: GABAPENTIN 300 MG CAPSULE PO (20:12)
[2022-03-21] MEDS: INSULIN GLARGINE (*BKC) 100 UNITS/ML 40 UNITS SUB-Q (20:23)
[2022-03-21] MEDS: HEPARIN SOD/D5W 100 UNITS/ML 25,000 UNITS/250 ML BAG 13 UNITS IV CONT (20:39)
[2022-03-21 20:40] LABS: Glucose Point of Care 314 mg/dl (65-105)
[2022-03-22] VITALS (27 sets, daily range): BP systolic 138–235; BP diastolic 70–101; PULSE 79–145; RESP 18–20; TEMP 36–36.9; O2SAT 97–99
[2022-03-22 02:33] LABS: Basophils Absolute Auto 0.1 K/mm3 (0.0-0.1); Basophils Percent Auto 0.4 % (0.2-1.2); Eosinophils Absolute Auto 0.1 K/mm3 (0-0.3); Eosinophils Percent Auto 1.1 % (0-4.4); Hematocrit 26.1 % (37.0-47.0); Hemoglobin 7.9 g/dL (12.0-15.0); Immature Granulocyte Absolute 0.17 K/mm3 (0.00-0.031); Immature Granulocyte Percent A 1.3 % (0-0.5); Lymphocytes Absolute Auto 1.38 K/mm3 (0.9-3.2); Lymphocytes Percent Auto 10.6 % (18.3-44.2); Mean Corpuscular HGB Conc 30.3 g/dl (32-36); Mean Corpuscular Hemoglobin 25.6 pg (26-34); Mean Corpuscular Volume 84.5 fl (80-100); Mean Platelet Volume 9.3 fl (7.4-10.4); Monocytes Absolute Auto 1.4 K/mm3 (0.1-0.6); Monocytes Percent Auto 10.7 % (2.6-8.5); Neutrophils Absolute Auto 9.9 K/mm3 (1.3-6.7); Neutrophils Percent Auto 75.9 % (45.5-73.1); Platelet Count Result 467 k/mm3 (150-375); Red Blood Count 3.09 M/mm3 (4.2-5.4); Red Cell Distribution Width 17.6 % (11.5-14.5); White Blood Count 13.1 K/mm3 (4.5-10.0)
[2022-03-22 02:43] LABS: Alanine Aminotransferase 18 U/L (6-35); Albumin Level 3.6 g/dL (3.5-5.1); Alkaline Phosphatase 95 U/L (38-126); Anion Gap 14 mmol/L (8-16); Aspartate Amino Transferase 41 U/L (14-36); Bilirubin,Total 0.5 mg/dL (0.2-1.3); Blood Urea Nitrogen 115 mg/dL (7-17); Calcium 8.3 mg/dL (8.4-10.2); Carbon Dioxide 27 mmol/L (22-30); Chloride 91 mmol/L (98-107); Estimated CRCL calculation 21 ml/min; Estimated Glomerular Filt Rate 15; Glucose 169 mg/dL (65-110); Potassium 4.1 mmol/L (3.4-5.0); Sodium 132 mmol/L (137-145)
[2022-03-22 02:45] LABS: Partial Thromboplastin Time 58.3 SECONDS (22.3-36.8)
[2022-03-22] MEDS: HEPARIN SODIUM 5,000 UNITS/ML VIAL 3500 UNITS IV PUSH (03:42)
[2022-03-22] MEDS: LEVOTHYROXINE SODIUM 150 MCG TABLET PO (05:45)
[2022-03-22] MEDS: LEVOTHYROXINE SODIUM 25 MCG TABLET PO (05:45)
[2022-03-22 07:30] LABS: Hepatitis B Surface Antigen Negative (Negative)
[2022-03-22 07:36] LABS: HAV RESULT Negative (Negative); Hepatitis B Core IgM Result Negative (Negative)
[2022-03-22 07:47] LABS: Hepatitis B Surface Anti Res Negative; Hepatitis C Virus Antibody Negative (Negative)
--- NOTE | 2022-03-22 08:30 | PC.NURSE ---
Patient is in dialysis
[2022-03-22 08:43] LABS: Glucose Point of Care 163 mg/dl (65-105)
[2022-03-22 09:34] LABS: Partial Thromboplastin Time 100.6 SECONDS (22.3-36.8)
--- NOTE | 2022-03-22 11:17 | PCOTNOTE ---
Attempted to see patient this am, however patient off floor for dialysis at this time.
--- NOTE | 2022-03-22 11:22 | PCPTNOTE ---
The patient treatment was not able to be completed on 03/22/2022 due to patient out of room for dialysis. Will plan to continue treatment per plan of care.
--- NOTE | 2022-03-22 11:24 | PM.IMPN ---
Progress Note: A&P Assessment and Plan (1) Altered mental status: Code(s): R41.82 - Altered mental status, unspecified Status: Acute Assessment and Plan: suspect this is secondary to uremia despite creatinine numbers being quite moderate, BUN is climbing significantly, GFR unchanged at 14 Back to baseline currently (2) Anemia: Code(s): D64.9 - Anemia, unspecified Status: Acute Assessment and Plan: Appears to be at baseline, does receive Epogen, will defer to Nephrology for further management, no signs of a GI bleed at this time (3) CKD (chronic kidney disease): Code(s): N18.9 - Chronic kidney disease, unspecified Status: Acute Assessment and Plan: chronic kidney disease worsened Recently was on the hospital with MARINA needing dialysis temporarily with renal function back to baseline at the time of discharge without dialysis Kidney function continues to worsen since discharge with low urine output Dialysis catheter placed 03/21/2022 and hemodialysis [id number] (4) DVT (deep venous thrombosis): Code(s): I82.409 - Acute embolism and thrombosis of unspecified deep veins of unspecified lower extremity Status: Acute Assessment and Plan: Heparin drip, hold Xarelto (5) Acute respiratory failure: Code(s): J96.00 - Acute respiratory failure, unspecified whether with hypoxia or hypercapnia Status: Acute Assessment and Plan: Supplemental oxygen as needed, suspect this will improve as pulmonary edema improves (6) Asthma-COPD overlap syndrome: Code(s): J44.9 - Chronic obstructive pulmonary disease, unspecified Status: Acute Assessment and Plan: Hold off on steroids, does not appear to be in acute exacerbation, continue home treatments (7) Hypertension: Code(s): I10 - Essential (primary) hypertension Status: Chronic Assessment and Plan: Stable (8) Acute on chronic diastolic heart failure: Code(s): I50.33 - Acute on chronic diastolic (congestive) heart failure Status: Acute Assessment and Plan: Appreciate cardiology consultation, fluid overload appears to be secondary to kidney disease, management per Nephrology (9) MARINA (acute kidney injury): Code(s): N17.9 - Acute kidney failure, unspecified Status: Acute Assessment and Plan: Appreciate nephrology management, she did need dialysis during her last admission started on dialysis 03/22/2022 may need long-term dialysis await Nephrology input (10) RAINA (obstructive sleep apnea): Code(s): G47.33 - Obstructive sleep apnea (adult) (pediatric) Status: Acute Assessment and Plan: Continue CPAP at night as tolerated (11) Hypothyroidism (acquired): Code(s): E03.9 - Hypothyroidism, unspecified Status: Acute Assessment and Plan: Continue home medication TSH elevated, follow-up outpatient (12) ARACELY (generalized anxiety disorder): Code(s): F41.1 - Generalized anxiety disorder Status: Acute Assessment and Plan: Hold Xanax for now due to altered mental status (13) 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 Will reassess after dialysis for adjustment of her blood pressure medications DVT prophylaxis with heparin drip GI prophylaxis not indicated Code status full code Subjective Date/time seen: 03/22/22 11:24 No overnight events. Reports shortness of breath has improved. She is on her dialysis. Started today. Leg swelling is improved she states. Blood pressures b
--- NOTE | 2022-03-22 12:01 | P.PNNP_ITS ---
Progress Note: A&P Assessment and Plan (1) MARINA (acute kidney injury): Code(s): N17.9 - Acute kidney failure, unspecified Status: Acute Assessment and Plan: * creatinine up from baseline * presumably due to escalating diuretic therapy * however, urine output declining despite use of diuretics as well * now with increased lethargy concerning for uremia * s/p HD catheter placement (on 03/21/22) * HD today and likely again tomorrow * hopefully dialysis is temporary again but I worry that this is her second bout of MARINA/ARF in the last month * follow trend of repeat labs and UOP * she may need outpatient dialysis this time.... (2) Stage 3b chronic kidney disease: Code(s): N18.32 - Chronic kidney disease, stage 3b Status: Chronic Assessment and Plan: * baseline creatinine runs ~ 1.6 - 2.2mg/dl * likely due to CAD/CHF, vascular disease, diabetes, and age-related change (3) Acute on chronic diastolic heart failure: Code(s): I50.33 - Acute on chronic diastolic (congestive) heart failure Status: Acute Assessment and Plan: * seems exacerbated by limited diuresis/diuretic resistance * was on IV bumex * holding diuretics due to rising BUN * fluid removal with dialysis * follow daily weights and I/Os * Cardiology recommendations noted (4) Hypertension: Code(s): I10 - Essential (primary) hypertension Status: Chronic Assessment and Plan: * quite elevated at this time * likely precipitated by MARINA and volume overload? * considering adding PRN IV or oral hydralazine * hopefully fluid removal with HD will help * follow trend of hemodynamics (5) Anemia: Code(s): D64.9 - Anemia, unspecified Status: Acute Assessment and Plan: * likely due to CKD, and acute illness * Epogen with HD * follow H/H (6) Type 2 diabetes mellitus with hyperglycemia: Code(s): E11.65 - Type 2 diabetes mellitus with hyperglycemia Status: Chronic Assessment and Plan: * follow accuchecks * glycemic control Will continue to follow. Subjective Date/time seen: 03/22/22 12:01 Tolerated dialysis treatment at the time of my visit (seen on HD at 11:50AM); seems a bit more awake at this time; s/p HD catheter placement yesterday afternoon and tolerated procedure reasonably well; breathing appears better as well. Exam Narrative: General: WD/WN in NAD Heart: normal S1 and S2; no rub Lungs: coarse breath sounds; diminished at bases associated with a few crackles Abdomen: soft, nontender, nondistended, positive bowel sounds Extremities: no cyanosis or clubbing; 1+ edema Skin: warm and intact Objective Data Vital Signs Vital Signs: Vital Signs Temp Pulse Resp BP Pulse Ox O2 Del Method O2 Flow Rate 03/22/22 11:00 89 181/99 H 03/22/22 10:45 88 184/81 H 03/22/22 10:30 89 180/92 H 03/22/22 10:15 87 185/83 H 03/22/22 10:00 87 169/94 H 03/22/22 09:45 87 202/97 H 03/22/22 09:37 88 235/96 H 03/22/22 09:25 36.6 C 93 20 215/82 H 03/22/22 04:00 84 03/22/22 04:06 36.6 C 83 20 138/85 99 03/22/22 00:00 81 03/22/22 00:00 36.6 C 81 20 156/70 H 97 03/21/22 21:26 95 Nasal Cannula 2 03/21/22 20:00 99 1
--- NOTE | 2022-03-22 12:01 | PM.PNNEP ---
Progress Note: A&P Assessment and Plan (1) MARINA (acute kidney injury): Code(s): N17.9 - Acute kidney failure, unspecified Status: Acute Assessment and Plan: creatinine up from baseline presumably due to escalating diuretic therapy however, urine output declining despite use of diuretics as well now with increased lethargy concerning for uremia s/p HD catheter placement (on 03/21/22) HD today and likely again tomorrow hopefully dialysis is temporary again but I worry that this is her second bout of MARINA/ARF in the last month follow trend of repeat labs and UOP she may need outpatient dialysis this time.... (2) Stage 3b chronic kidney disease: Code(s): N18.32 - Chronic kidney disease, stage 3b Status: Chronic Assessment and Plan: baseline creatinine runs ~ 1.6 - 2.2mg/dl likely due to CAD/CHF, vascular disease, diabetes, and age-related change (3) Acute on chronic diastolic heart failure: Code(s): I50.33 - Acute on chronic diastolic (congestive) heart failure Status: Acute Assessment and Plan: seems exacerbated by limited diuresis/diuretic resistance was on IV bumex holding diuretics due to rising BUN fluid removal with dialysis follow daily weights and I/Os Cardiology recommendations noted (4) Hypertension: Code(s): I10 - Essential (primary) hypertension Status: Chronic Assessment and Plan: quite elevated at this time likely precipitated by MARINA and volume overload? considering adding PRN IV or oral hydralazine hopefully fluid removal with HD will help follow trend of hemodynamics (5) Anemia: Code(s): D64.9 - Anemia, unspecified Status: Acute Assessment and Plan: likely due to CKD, and acute illness Epogen with HD follow H/H (6) Type 2 diabetes mellitus with hyperglycemia: Code(s): E11.65 - Type 2 diabetes mellitus with hyperglycemia Status: Chronic Assessment and Plan: follow accuchecks glycemic control Will continue to follow. Subjective Date/time seen: 03/22/22 12:01 Tolerated dialysis treatment at the time of my visit (seen on HD at 11:50AM); seems a bit more awake at this time; s/p HD catheter placement yesterday afternoon and tolerated procedure reasonably well; breathing appears better as well. Exam Narrative: General: WD/WN in NAD Heart: normal S1 and S2; no rub Lungs: coarse breath sounds; diminished at bases associated with a few crackles Abdomen: soft, nontender, nondistended, positive bowel sounds Extremities: no cyanosis or clubbing; 1+ edema Skin: warm and intact Objective Data Vital Signs Vital Signs: Vital Signs Temp Pulse Resp BP Pulse Ox O2 Del Method O2 Flow Rate 03/22/22 11:00 89 181/99 H 03/22/22 10:45 88 184/81 H 03/22/22 10:30 89 180/92 H 03/22/22 10:15 87 185/83 H 03/22/22 10:00 87 169/94 H 03/22/22 09:45 87 202/97 H 03/22/22 09:37 88 235/96 H 03/22/22 09:25 36.6 C 93 20 215/82 H 03/22/22 04:00 84 03/22/22 04:06 36.6 C 83 20 138/85 99 03/22/22 00:00 81 03/22/22 00:00 36.6 C 81 20 156/70 H 97 03/21/22 21:26 95 Nasal Cannula 2 03/21/22 20:00 99 18 98 Nasal Cannula 2 03/21/22 20:00 82 03/21/22 20:07 36.6 C 99 18 168/70 H 98 03/21/22 18:19 36.2 C L 83 18 136/47 L 100 03/21/22 17:00 36.2 C L 76 18 162/79 H 100 03/21/22 16:30 79 18 162/84 H 97 Nasal Cannula 2 03/21/22 16:25 36.1 C L 78 14 156/68 H 98 Nasal Cannula 2 03/21/22 16:20 78 18 149/65 H 100 Nasal Cannula 2 03/21/22 16:10 79 13 164/75 H 100 Nasal Cannula 2 03/21/22 15:55 78 19 161/74 H 98 Nasal Cannula 2 03/21/22 15:42 36.2 C L 80 18 158/76 H 100 Nasal Cannula 2 03/21/22 14:46 36.4 C L 120 H 18 132/80 96 High Flow Nasal Cannula 2 03/21/22 13:15 Nasal Ca
--- NOTE | 2022-03-22 12:56 | WPDANESPN ---
Anes - Prog Note Post-Op Date/Time: 03/22/22 12:56 Cardiovascular status: normal Respiratory status: normal Airway patency: baseline Mental status: baseline Post-Op hydration status: normal Vital Signs: Last Vital Signs Temp 36.6 C 03/22/22 09:25 Pulse 90 03/22/22 12:00 Resp 20 03/22/22 09:25 BP 168/84 H 03/22/22 12:00 Pulse Ox 99 03/22/22 08:00 O2 Del Method Nasal Cannula 03/22/22 08:00 O2 Flow Rate 2 03/22/22 08:00 Pain Score (VAS): 0 I/O: Intake & Output 03/21/22 03/22/22 03/22/22 23:59 07:59 15:59 Intake Total 712 200 120 Output Total 675 775 Balance 37 -575 120 Laboratory Tests 03/22/22 02:26 03/22/22 02:25 03/21/22 03/21/22 03/21/22 15:45 17:07 20:11 WBC RBC Hgb Hct MCV MCH MCHC RDW Plt Count MPV Immature Gran % (Auto) Neut % (Auto) Lymph % (Auto) [place] % (Auto) Eos % (Auto) Baso % (Auto) Lymph # (Auto) [place] # (Auto) Eos # (Auto) Baso # (Auto) Abs Immat Gran (auto) Absolute Neuts (auto) Absolute Nucleated RBC Nucleated RBC % APTT Sodium Potassium Chloride Carbon Dioxide Anion Gap BUN Creatinine Estim Creat Clear Calc Estimated GFR Glucose POC Capillary Glucose 146 H 120 H 314 H Calcium Total Bilirubin AST ALT Alkaline Phosphatase Total Protein Albumin Hepatitis A IgM Ab Hep Bs Antigen Hep Bs Antibody Hep B Core Total Ab Hep B Core IgM Ab Hepatitis C Ab Screen 03/22/22 03/22/22 03/22/22 02:25 02:25 02:26 WBC 13.1 H RBC 3.09 L Hgb 7.9 L Hct 26.1 L MCV 84.5 MCH 25.6 L MCHC 30.3 L RDW 17.6 H Plt Count 467 H MPV 9.3 Immature Gran % (Auto) 1.3 H Neut % (Auto) 75.9 H Lymph % (Auto) 10.6 L [place] % (Auto) 10.7 H Eos % (Auto) 1.1 Baso % (Auto) 0.4 Lymph # (Auto) 1.38 [place] # (Auto) 1.4 H Eos # (Auto) 0.1 Baso # (Auto) 0.1 Abs Immat Gran (auto) 0.17 H Absolute Neuts (auto) 9.9 H Absolute Nucleated RBC 0.0 Nucleated RBC % 0.0 APTT 58.3 H Sodium 132 L Potassium 4.1 Chloride 91 L Carbon Dioxide 27 Anion Gap 14 BUN 115 H Creatinine 3.00 H Estim Creat Clear Calc 21 Estimated GFR 15 L Glucose 169 H POC Capillary Glucose Calcium 8.3 L Total Bilirubin 0.5 AST 41 H ALT 18 Alkaline Phosphatase 95 Total Protein 8.0 Albumin 3.6 Hepatitis A IgM Ab Hep Bs Antigen Hep Bs Antibody Hep B Core Total Ab Hep B Core IgM Ab Hepatitis C Ab Screen 03/22/22 03/22/22 03/22/22 02:26 02:26 08:27 WBC RBC Hgb Hct MCV MCH MCHC RDW Plt Count MPV Immature Gran % (Auto) Neut % (Auto) Lymph % (Auto) [place] % (Auto) Eos % (Auto) Baso % (Auto) Lymph # (Auto) [place] # (Auto) Eos # (Auto) Baso # (Auto) Abs Immat Gran (auto) Absolute Neuts (auto) Absolute Nucleated RBC Nucleated RBC % APTT Sodium Potassium Chloride Carbon Dioxide Anion Gap BUN Creatinine Estim Creat Clear Calc Estimated GFR Glucose POC Capillary Glucose 163 H Calcium Total Bilirubin AST ALT Alkaline Phosphatase Total Protein Albumin Hepatitis A IgM Ab Negative Hep Bs Antigen Negative Hep Bs Antibody Negative Hep B Core Total Ab Pending Hep B Core IgM Ab Negative Hepatitis C Ab Screen Negative 03/22/22 09:16 WBC RBC Hgb Hct MCV MCH MCHC RDW Plt Count MPV Immature Gran % (Auto) Neut % (Auto) Lymph % (Auto) [place] % (Auto) Eos % (Auto) Baso % (Auto) Lymph # (Auto) [place] # (Auto) Eos # (Auto) Baso # (Auto) Abs Immat Gran (auto) Absolute Neuts (auto) Absolute Nucleated RBC Nucleated RBC % APTT 100.6 H Sodium Potassium Chloride Carbon Dioxide Anion Gap BUN Creatinine E
--- NOTE | 2022-03-22 13:05 | PC.NURSE ---
Patient campus monitor showing AFIB with heart rate in 140's-160's. Burning Plant Operator contacted hospitalist Hellen. Medication ordered and given (see MAR). EKG ordered and showed AFIB with RVR. Burning Plant Operator notfied hospitalist Hellen of these results and medication was ordered and given (see MAR). Patients family members are beside and updated on patients condition.
--- NOTE | 2022-03-22 13:06 | ECG_ITS ---
Measurements Intervals [place] Rate: 119 P: ME: 0 QRS: 38 QRSD: 104 T: 212 QT: 315 QTc: 444 Interpretive Statements ATRIAL FIBRILLATION WITH RAPID VENTRICULAR RESPONSE DELAYED PRECORDIAL R/S TRANSITION LOW QRS VOLTAGE IN LIMB LEADS BORDERLINE ST-T WAVE ABNORMALITY- INF/LAT LEADS BASELINE WANDER- I, II, V5 ABNORMAL ECG COMPARED TO ECG 03/17/2022 15:19:07 ATRIAL FIBRILLATION NOW PRESENT Electronically Signed On 03-22-2022 13:56:20 JOB ANALYST by Brannon Hatfield D.O.
--- NOTE | 2022-03-22 13:10 | PC.NURSE ---
Patient returned to unit from dialysis.
[2022-03-22] MEDS: METOPROLOL TARTRATE INJ 5 MG/5 ML VIAL IV PUSH (13:18)
[2022-03-22] MEDS: METOPROLOL SUCCINATE EXT REL 25 MG TABCR PO (13:58)
[2022-03-22] MEDS: HEPARIN SOD/D5W 100 UNITS/ML 25,000 UNITS/250 ML BAG 15 UNITS IV CONT ×2 (14:03→20:12)
[2022-03-22 15:34] LABS: Partial Thromboplastin Time 73.3 SECONDS (22.3-36.8)
[2022-03-22] MEDS: ALBUTEROL SULFATE (*SP) AEROSOL 1 PUFF 2 PUFF INHALATION (16:39)
[2022-03-22 17:25] LABS: Glucose Point of Care 179 mg/dl (65-105)
[2022-03-22] MEDS: FERROUS SULFATE 324 MG TABLET PO (18:19)
[2022-03-22] MEDS: ACETAMINOPHEN 325 MG TABLET 650 MG PO (18:22)
[2022-03-22] MEDS: ALBUTEROL SULFATE NEB 2.5 MG/3 ML INH INHALATION (19:48)
[2022-03-22] MEDS: IPRATROPIUM BR 0.02% INH SOLN 0.5 MG/2.5 ML VIAL INHALATION (19:48)
[2022-03-22] MEDS: GABAPENTIN 300 MG CAPSULE PO (20:10)
[2022-03-22] MEDS: MELATONIN 5 MG TABLET PO (20:10)
[2022-03-22] MEDS: INSULIN GLARGINE (*BKC) 100 UNITS/ML 40 UNITS SUB-Q (20:16)
[2022-03-22 20:42] LABS: Glucose Point of Care 289 mg/dl (65-105)
[2022-03-23] VITALS (32 sets, daily range): BP systolic 149–215; BP diastolic 52–103; PULSE 68–148; RESP 18–26; TEMP 36–37; O2SAT 93–99
[2022-03-23] MEDS: METOPROLOL TARTRATE INJ 5 MG/5 ML VIAL IV PUSH ×2 (00:40→15:24)
[2022-03-23 00:51] LABS: Magnesium 2.1 mg/dL (1.6-2.3)
[2022-03-23 00:54] LABS: Partial Thromboplastin Time 87.2 SECONDS (22.3-36.8)
--- NOTE | 2022-03-23 04:20 | PC.NURSE ---
Pt went into A Fib with heart rate of 120-130. notified and Metoprolol IVP given with no change in heart rate. notified again of elevated heart rate and new orders received. With in 15 minutes of receiving transfer order pt again converted back into NSR with pulse of 74. Transferred held at this time.
[2022-03-23] MEDS: LEVOTHYROXINE SODIUM 25 MCG TABLET PO (05:40)
[2022-03-23] MEDS: LEVOTHYROXINE SODIUM 150 MCG TABLET PO (05:41)
[2022-03-23 06:03] LABS: Basophils Absolute Auto 0.1 K/mm3 (0.0-0.1); Basophils Percent Auto 0.4 % (0.2-1.2); Eosinophils Absolute Auto 0.1 K/mm3 (0-0.3); Eosinophils Percent Auto 0.5 % (0-4.4); Hematocrit 28.3 % (37.0-47.0); Hemoglobin 8.4 g/dL (12.0-15.0); Immature Granulocyte Absolute 0.32 K/mm3 (0.00-0.031); Immature Granulocyte Percent A 1.8 % (0-0.5); Lymphocytes Absolute Auto 1.24 K/mm3 (0.9-3.2); Mean Corpuscular HGB Conc 29.7 g/dl (32-36); Mean Corpuscular Hemoglobin 25.6 pg (26-34); Mean Corpuscular Volume 86.3 fl (80-100); Mean Platelet Volume 9.5 fl (7.4-10.4); Monocytes Absolute Auto 2.3 K/mm3 (0.1-0.6); Monocytes Percent Auto 12.8 % (2.6-8.5); Neutrophils Absolute Auto 13.8 K/mm3 (1.3-6.7); Neutrophils Percent Auto 77.5 % (45.5-73.1); Platelet Count Result 423 k/mm3 (150-375); Red Blood Count 3.28 M/mm3 (4.2-5.4); Red Cell Distribution Width 17.3 % (11.5-14.5); White Blood Count 17.8 K/mm3 (4.5-10.0)
[2022-03-23 06:16] LABS: Partial Thromboplastin Time 79.4 SECONDS (22.3-36.8)
[2022-03-23 06:22] LABS: Alanine Aminotransferase 17 U/L (6-35); Albumin Level 3.6 g/dL (3.5-5.1); Alkaline Phosphatase 101 U/L (38-126); Anion Gap 14 mmol/L (8-16); Aspartate Amino Transferase 26 U/L (14-36); Bilirubin,Total 0.6 mg/dL (0.2-1.3); Blood Urea Nitrogen 73 mg/dL (7-17); Calcium 8.8 mg/dL (8.4-10.2); Carbon Dioxide 29 mmol/L (22-30); Chloride 94 mmol/L (98-107); Estimated CRCL calculation 32 ml/min; Estimated Glomerular Filt Rate 26; Glucose 194 mg/dL (65-110); Potassium 4.1 mmol/L (3.4-5.0); Sodium 137 mmol/L (137-145)
[2022-03-23] MEDS: IPRATROPIUM BR 0.02% INH SOLN 0.5 MG/2.5 ML VIAL INHALATION ×2 (07:01→20:07)
[2022-03-23] MEDS: ALBUTEROL SULFATE NEB 2.5 MG/3 ML INH INHALATION ×2 (07:01→20:06)
[2022-03-23] MEDS: FLUTICASONE/UMECLIDIN/VILANTER 200-62.5-25 MCG ELLIPTA 1 PUFF INHALATION (07:06)
[2022-03-23 07:34] LABS: Anisocytosis 1+ (NORMAL); Hypochromasia 1+ (NORMAL); Macrocytosis 1+ (NORMAL); Platelet Estimate Increased (Adequate); Poikilocytosis 1+ (NORMAL); Schistocytes None Seen (NORMAL)
[2022-03-23 08:32] LABS: Glucose Point of Care 189 mg/dl (65-105)
--- NOTE | 2022-03-23 11:06 | P.PNNP_ITS ---
Progress Note: A&P Assessment and Plan (1) MARINA (acute kidney injury): Code(s): N17.9 - Acute kidney failure, unspecified Status: Acute Assessment and Plan: * creatinine up from baseline * presumably due to escalating diuretic therapy * however, urine output was declining despite use of diuretics as well * issues with increased lethargy concerning for uremia * s/p HD catheter placement (on 03/21/22) * HD today * hopefully dialysis is temporary again but I worry that this is her second bout of MARINA/ARF in the last month * follow trend of repeat labs and UOP * she may need outpatient dialysis this time.... (2) Stage 3b chronic kidney disease: Code(s): N18.32 - Chronic kidney disease, stage 3b Status: Chronic Assessment and Plan: * baseline creatinine runs ~ 1.6 - 2.2mg/dl * likely due to CAD/CHF, vascular disease, diabetes, and age-related change (3) Acute on chronic diastolic heart failure: Code(s): I50.33 - Acute on chronic diastolic (congestive) heart failure Status: Acute Assessment and Plan: * seems exacerbated by limited diuresis/diuretic resistance * was on IV bumex * holding diuretics due to rising BUN * continue fluid removal with dialysis * follow daily weights and I/Os * Cardiology recommendations noted (4) Hypertension: Code(s): I10 - Essential (primary) hypertension Status: Chronic Assessment and Plan: * quite elevated at this time * likely precipitated by MARINA and volume overload? * considering adding PRN IV or oral hydralazine * hopefully fluid removal with HD will help * follow trend of hemodynamics (5) Anemia: Code(s): D64.9 - Anemia, unspecified Status: Acute Assessment and Plan: * likely due to CKD, and acute illness * Epogen with HD * follow H/H (6) Type 2 diabetes mellitus with hyperglycemia: Code(s): E11.65 - Type 2 diabetes mellitus with hyperglycemia Status: Chronic Assessment and Plan: * follow accuchecks * glycemic control Will continue to follow. Subjective Date/time seen: 03/23/22 11:02 Tolerating hemodialysis treatment at the time of my visit (seen on HD at 10:55AM); tolerated dialysis treatment yesterday without any acute issues or problems; better urine output in the last 24 - 48 hours along with higher BP readings as well; mentation seems stable. Exam Narrative: General: WD/WN in NAD Heart: normal S1 and S2; no rub Lungs: coarse breath sounds; diminished at bases associated with a few crackles Abdomen: soft, nontender, nondistended, positive bowel sounds Extremities: no cyanosis or clubbing; 1+ edema Skin: no rash Objective Data Vital Signs Vital Signs: Vital Signs Temp Pulse Resp BP Pulse Ox O2 Del Method O2 Flow Rate 03/23/22 10:40 78 200/82 H 03/23/22 08:00 95 Nasal Cannula 2 03/23/22 08:00 80 03/23/22 10:20 78 200/82 H 03/23/22 09:25 2 03/23/22 09:25 36.7 C 78 26 H 200/80 H 03/23/22 10:00 68 212/101 H 03/23/22 09:37 68 201/103 H 03/23/22 07:04 95 Nasal Cannula 2 03/23/22 07:02 79 03/23/22 04:00 77 03/23/22 04:12 36.4 C L 81 20 156/82 H 98 03/23/22 00:40 126 H 03/23/22 00:00 124 H
--- NOTE | 2022-03-23 11:06 | PM.PNNEP ---
Progress Note: A&P Assessment and Plan (1) MARINA (acute kidney injury): Code(s): N17.9 - Acute kidney failure, unspecified Status: Acute Assessment and Plan: creatinine up from baseline presumably due to escalating diuretic therapy however, urine output was declining despite use of diuretics as well issues with increased lethargy concerning for uremia s/p HD catheter placement (on 03/21/22) HD today hopefully dialysis is temporary again but I worry that this is her second bout of MARINA/ARF in the last month follow trend of repeat labs and UOP she may need outpatient dialysis this time.... (2) Stage 3b chronic kidney disease: Code(s): N18.32 - Chronic kidney disease, stage 3b Status: Chronic Assessment and Plan: baseline creatinine runs ~ 1.6 - 2.2mg/dl likely due to CAD/CHF, vascular disease, diabetes, and age-related change (3) Acute on chronic diastolic heart failure: Code(s): I50.33 - Acute on chronic diastolic (congestive) heart failure Status: Acute Assessment and Plan: seems exacerbated by limited diuresis/diuretic resistance was on IV bumex holding diuretics due to rising BUN continue fluid removal with dialysis follow daily weights and I/Os Cardiology recommendations noted (4) Hypertension: Code(s): I10 - Essential (primary) hypertension Status: Chronic Assessment and Plan: quite elevated at this time likely precipitated by MARINA and volume overload? considering adding PRN IV or oral hydralazine hopefully fluid removal with HD will help follow trend of hemodynamics (5) Anemia: Code(s): D64.9 - Anemia, unspecified Status: Acute Assessment and Plan: likely due to CKD, and acute illness Epogen with HD follow H/H (6) Type 2 diabetes mellitus with hyperglycemia: Code(s): E11.65 - Type 2 diabetes mellitus with hyperglycemia Status: Chronic Assessment and Plan: follow accuchecks glycemic control Will continue to follow. Subjective Date/time seen: 03/23/22 11:02 Tolerating hemodialysis treatment at the time of my visit (seen on HD at 10:55AM); tolerated dialysis treatment yesterday without any acute issues or problems; better urine output in the last 24 - 48 hours along with higher BP readings as well; mentation seems stable. Exam Narrative: General: WD/WN in NAD Heart: normal S1 and S2; no rub Lungs: coarse breath sounds; diminished at bases associated with a few crackles Abdomen: soft, nontender, nondistended, positive bowel sounds Extremities: no cyanosis or clubbing; 1+ edema Skin: no rash Objective Data Vital Signs Vital Signs: Vital Signs Temp Pulse Resp BP Pulse Ox O2 Del Method O2 Flow Rate 03/23/22 10:40 78 200/82 H 03/23/22 08:00 95 Nasal Cannula 2 03/23/22 08:00 80 03/23/22 10:20 78 200/82 H 03/23/22 09:25 2 03/23/22 09:25 36.7 C 78 26 H 200/80 H 03/23/22 10:00 68 212/101 H 03/23/22 09:37 68 201/103 H 03/23/22 07:04 95 Nasal Cannula 2 03/23/22 07:02 79 03/23/22 04:00 77 03/23/22 04:12 36.4 C L 81 20 156/82 H 98 03/23/22 00:40 126 H 03/23/22 00:00 124 H 03/23/22 00:07 36.6 C 132 H 20 149/95 H 93 03/22/22 20:00 82 20 98 Nasal Cannula 1 03/22/22 20:00 81 03/22/22 20:07 36.4 C 82 20 156/92 H 98 03/22/22 16:00 83 03/22/22 12:00 92 03/22/22 12:40 36.9 C 93 20 167/90 H 03/22/22 12:38 89 193/83 H 03/22/22 12:30 90 185/86 H 03/22/22 12:15 92 198/84 H 03/22/22 15:06 36.4 C 87 18 165/89 H 99 03/22/22 13:58 131 H 03/22/22 13:18 145 H 03/22/22 12:00 90 168/84 H 03/22/22 11:45 88 182/101 H 03/22/22 11:30 90 180/91 H 03/22/22 11:15 79 157/87 H Intake/Output Intake/Output: Intake
--- NOTE | 2022-03-23 11:17 | PCPTNOTE ---
Attempted to see patient for PT at this time, however unable due to patient out of room for dialysis.
--- NOTE | 2022-03-23 13:14 | PCOTNOTE ---
Attempted to see patient this pm, however patient off floor for dialysis at this time.
[2022-03-23 13:59] LABS: Glucose Point of Care 119 mg/dl (65-105)
[2022-03-23] MEDS: HEPARIN SOD/D5W 100 UNITS/ML 25,000 UNITS/250 ML BAG 15 UNITS IV CONT (14:07)
[2022-03-23] MEDS: FLUTICASONE PROPIONATE 0.05% NA SPR 16 GM BTL (*BKC) 2 SPRAY NASAL (14:08)
[2022-03-23] MEDS: FERROUS SULFATE 324 MG TABLET PO ×2 (14:08→18:19)
[2022-03-23] MEDS: PANTOPRAZOLE SODIUM IV 40 MG VIAL IV PUSH (14:08)
[2022-03-23] MEDS: GABAPENTIN 300 MG CAPSULE PO ×2 (14:09→20:31)
[2022-03-23] MEDS: MONTELUKAST SODIUM 10 MG TABLET PO (14:09)
[2022-03-23] MEDS: METOPROLOL SUCCINATE EXT REL 25 MG TABCR PO (14:09)
--- NOTE | 2022-03-23 16:14 | PM.IMPN ---
Progress Note: A&P Assessment and Plan (1) Altered mental status: Code(s): R41.82 - Altered mental status, unspecified Status: Acute Assessment and Plan: suspect this is secondary to uremia despite creatinine numbers being quite moderate, BUN is climbing significantly, GFR unchanged at 14 Back to baseline currently (2) Anemia: Code(s): D64.9 - Anemia, unspecified Status: Acute Assessment and Plan: Appears to be at baseline, does receive Epogen, will defer to Nephrology for further management, no signs of a GI bleed at this time (3) CKD (chronic kidney disease): Code(s): N18.9 - Chronic kidney disease, unspecified Status: Acute Assessment and Plan: chronic kidney disease worsened Recently was on the hospital with MARINA needing dialysis temporarily with renal function back to baseline at the time of discharge without dialysis Kidney function continues to worsen since discharge with low urine output Dialysis catheter placed 03/21/2022 and hemodialysis [id number] (4) DVT (deep venous thrombosis): Code(s): I82.409 - Acute embolism and thrombosis of unspecified deep veins of unspecified lower extremity Status: Acute Assessment and Plan: Heparin drip, hold Xarelto (5) Acute respiratory failure: Code(s): J96.00 - Acute respiratory failure, unspecified whether with hypoxia or hypercapnia Status: Acute Assessment and Plan: Supplemental oxygen as needed, suspect this will improve as pulmonary edema improves (6) Asthma-COPD overlap syndrome: Code(s): J44.9 - Chronic obstructive pulmonary disease, unspecified Status: Acute Assessment and Plan: Hold off on steroids, does not appear to be in acute exacerbation, continue home treatments (7) Hypertension: Code(s): I10 - Essential (primary) hypertension Status: Chronic Assessment and Plan: Stable (8) Acute on chronic diastolic heart failure: Code(s): I50.33 - Acute on chronic diastolic (congestive) heart failure Status: Acute Assessment and Plan: Appreciate cardiology consultation, fluid overload appears to be secondary to kidney disease, management per Nephrology (9) MARINA (acute kidney injury): Code(s): N17.9 - Acute kidney failure, unspecified Status: Acute Assessment and Plan: Appreciate nephrology management, she did need dialysis during her last admission started on dialysis 03/22/2022 may need long-term dialysis await Nephrology input (10) RAINA (obstructive sleep apnea): Code(s): G47.33 - Obstructive sleep apnea (adult) (pediatric) Status: Acute Assessment and Plan: Continue CPAP at night as tolerated (11) Hypothyroidism (acquired): Code(s): E03.9 - Hypothyroidism, unspecified Status: Acute Assessment and Plan: Continue home medication TSH elevated, follow-up outpatient (12) ARACELY (generalized anxiety disorder): Code(s): F41.1 - Generalized anxiety disorder Status: Acute Assessment and Plan: Hold Xanax for now due to altered mental status (13) 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 Will reassess after dialysis for adjustment of her blood pressure medications . Will start her verapamil home does AFib with RVR intermittently. Started on metoprolol with spontaneous resolution 03/22/2022. Back to AFib with RVR after dialysis today. Start on diltiazem drip. Already on anticoagulation with heparin drip DVT prophylaxis with heparin drip GI prophylaxis
[2022-03-23 17:14] LABS: Glucose Point of Care 165 mg/dl (65-105)
[2022-03-23] MEDS: VERAPAMIL HCL 180 MG TABLET ER 360 MG PO (18:19)
[2022-03-23 20:20] LABS: Glucose Point of Care 243 mg/dl (65-105)
[2022-03-23] MEDS: MELATONIN 5 MG TABLET PO (20:31)
[2022-03-23] MEDS: INSULIN GLARGINE (*BKC) 100 UNITS/ML 40 UNITS SUB-Q (20:33)
[2022-03-24] VITALS (21 sets, daily range): BP systolic 90–159; BP diastolic 47–74; PULSE 43–141; RESP 16–24; TEMP 36.1–36.6; O2SAT 90–96
[2022-03-24] MEDS: IPRATROPIUM BR 0.02% INH SOLN 0.5 MG/2.5 ML VIAL INHALATION ×4 (01:50→20:07)
[2022-03-24] MEDS: ALBUTEROL SULFATE NEB 2.5 MG/3 ML INH INHALATION ×4 (01:50→20:07)
[2022-03-24] MEDS: LEVOTHYROXINE SODIUM 25 MCG TABLET PO (05:48)
[2022-03-24] MEDS: LEVOTHYROXINE SODIUM 150 MCG TABLET PO (05:48)
[2022-03-24 06:24] LABS: Basophils Absolute Auto 0.1 K/mm3 (0.0-0.1); Basophils Percent Auto 0.7 % (0.2-1.2); Eosinophils Absolute Auto 0.1 K/mm3 (0-0.3); Eosinophils Percent Auto 0.8 % (0-4.4); Hematocrit 32.6 % (37.0-47.0); Hemoglobin 8.5 g/dL (12.0-15.0); Immature Granulocyte Percent A 1.2 % (0-0.5); Lymphocytes Absolute Auto 1.88 K/mm3 (0.9-3.2); Lymphocytes Percent Auto 10.9 % (18.3-44.2); Mean Corpuscular HGB Conc 26.1 g/dl (32-36); Mean Corpuscular Hemoglobin 25.4 pg (26-34); Mean Corpuscular Volume 97.3 fl (80-100); Monocytes Absolute Auto 1.9 K/mm3 (0.1-0.6); Neutrophils Percent Auto 75.4 % (45.5-73.1); Platelet Count Result 362 k/mm3 (150-375); Red Blood Count 3.35 M/mm3 (4.2-5.4); Red Cell Distribution Width 18.1 % (11.5-14.5); White Blood Count 17.2 K/mm3 (4.5-10.0)
[2022-03-24 06:25] LABS: Partial Thromboplastin Time 70.1 SECONDS (22.3-36.8)
[2022-03-24 07:24] LABS: Platelet Estimate Increased (Adequate)
[2022-03-24 07:25] LABS: Polychromasia 1+ (NORMAL); Target Cells 1+ (NORMAL)
[2022-03-24 07:26] LABS: Hypochromasia 1+ (NORMAL); Schistocytes None Seen (NORMAL)
[2022-03-24 07:27] LABS: Poikilocytosis 1+ (NORMAL)
--- NOTE | 2022-03-24 08:18 | PC.NURSE ---
Patient has been therapeutic on heparin drip for greater than 2 PTT redrawls. Vice President Compliance spoke with Dr. Macedo and insurance has denied her eliquis PO. Patient is remaining on heparin drip until PO anticoagulation medication can be approved via insurance. Vice President Compliance called pharmacist Leonila regarding heparin protocol. Patient will remain at current rate (SEE JUL) for 6 more hours until next times PTT redrawl.
[2022-03-24] MEDS: HEPARIN SOD/D5W 100 UNITS/ML 25,000 UNITS/250 ML BAG 15 UNITS IV CONT (08:23)
--- NOTE | 2022-03-24 08:30 | PC.NURSE ---
Patient is very lethargic this morning. Attempted to get patient up to take PO morning medication and unable to arouse patient.
[2022-03-24 08:42] LABS: Glucose Point of Care 145 mg/dl (65-105)
--- NOTE | 2022-03-24 08:50 | PCNWS ---
Weekly nutritional screen. Patient is tolerating current diet with adequate intake. No weight loss reported. No nutritional needs at this time.
[2022-03-24] MEDS: FLUTICASONE/UMECLIDIN/VILANTER 200-62.5-25 MCG ELLIPTA 1 PUFF INHALATION (09:31)
[2022-03-24] MEDS: FLUTICASONE PROPIONATE 0.05% NA SPR 16 GM BTL (*BKC) 2 SPRAY NASAL (09:34)
[2022-03-24] MEDS: GABAPENTIN 300 MG CAPSULE PO ×2 (10:36→20:53)
[2022-03-24] MEDS: FERROUS SULFATE 324 MG TABLET PO ×2 (10:36→18:32)
--- NOTE | 2022-03-24 10:40 | PC.NURSE ---
Patient has flipped back in Afrib RVR. Contacted Dr Macedo. New medication orders to be placed into MAR.
[2022-03-24] MEDS: METOPROLOL SUCCINATE EXT REL 25 MG TABCR PO ×2 (10:41→12:05)
[2022-03-24] MEDS: PANTOPRAZOLE SODIUM IV 40 MG VIAL IV PUSH (10:42)
[2022-03-24] MEDS: MONTELUKAST SODIUM 10 MG TABLET PO (10:42)
[2022-03-24 12:05] LABS: Glucose Point of Care 206 mg/dl (65-105)
[2022-03-24] MEDS: INSULIN ASPART (*BKC) 100 UNITS/ML SUB-Q ×2 (12:43→18:35)
--- NOTE | 2022-03-24 13:03 | PCOTNOTE ---
Attempted to see patient this pm, however pt presented with AFIB with RVR 120's-140's at rest. Pt not seen for this reason.
--- NOTE | 2022-03-24 13:11 | PM.PNNEP ---
Progress Note: A&P Assessment and Plan (1) MARINA (acute kidney injury): Code(s): N17.9 - Acute kidney failure, unspecified Status: Acute Assessment and Plan: creatinine up from baseline presumably due to escalating diuretic therapy however, urine output was declining despite use of diuretics as well issues with increased lethargy concerning for uremia s/p HD catheter placement (on 03/21/22) plan HD tomorrow hopefully dialysis is temporary again but I worry that this is her second bout of MARINA/ARF in the last month follow trend of repeat labs and UOP suspect she may need outpatient dialysis this time.... (2) Stage 3b chronic kidney disease: Code(s): N18.32 - Chronic kidney disease, stage 3b Status: Chronic Assessment and Plan: baseline creatinine runs ~ 1.6 - 2.2mg/dl likely due to CAD/CHF, vascular disease, diabetes, and age-related change (3) Acute on chronic diastolic heart failure: Code(s): I50.33 - Acute on chronic diastolic (congestive) heart failure Status: Acute Assessment and Plan: seems exacerbated by limited diuresis/diuretic resistance was on IV bumex holding diuretics due to rising BUN continue fluid removal with dialysis follow daily weights and I/Os Cardiology recommendations noted (4) Atrial fibrillation: Code(s): I48.91 - Unspecified atrial fibrillation Status: Chronic Assessment and Plan: Cardiology following continue rate control strategy with medications already on anticoagulation (5) Hypertension: Code(s): I10 - Essential (primary) hypertension Status: Chronic Assessment and Plan: quite elevated at times likely precipitated by MARINA and volume overload? considering adding PRN IV or oral hydralazine (although titration of metoprolol and verapamil may help as well) hopefully fluid removal with HD will help to some degree follow trend of hemodynamics (6) Anemia: Code(s): D64.9 - Anemia, unspecified Status: Acute Assessment and Plan: likely due to CKD, and acute illness Epogen with HD follow H/H (7) Type 2 diabetes mellitus with hyperglycemia: Code(s): E11.65 - Type 2 diabetes mellitus with hyperglycemia Status: Chronic Assessment and Plan: follow accuchecks glycemic control Will continue to follow. Subjective Date/time seen: 03/24/22 13:11 Tolerated dialysis treatment yesterday without any issue or problems; urine output decreased in last 24 hours (but this could be due to more aggressive ultrafiltration with dialysis); issues noted with in/out atrial fibrillation with RVR; states breathing is troublesome due to asthma -- no other acute distress noted. at bedside and we discussed the situation. Exam Narrative: General: WD/WN in NAD Heart: normal S1 and S2; no rub Lungs: coarse breath sounds; diminished at bases associated with a few crackles Abdomen: soft, nontender, nondistended, positive bowel sounds Extremities: no cyanosis or clubbing; 1+ edema Skin: warm and dry Objective Data Vital Signs Vital Signs: Vital Signs Temp Pulse Resp BP Pulse Ox O2 Del Method O2 Flow Rate 03/24/22 12:00 118 H 03/24/22 12:05 128 H 03/24/22 11:18 129/74 03/24/22 08:30 Room Air 03/24/22 08:30 69 03/24/22 10:41 141 H 03/24/22 10:00 68 20 03/24/22 09:34 90 Room Air 03/24/22 02:00 76 20 03/24/22 01:50 77 20 03/24/22 04:46 36.6 C 74 18 159/69 H 93 03/24/22 04:00 74 03/24/22 00:00 72 03/23/22 20:00 72 20 94 Nasal Cannula 2 03/23/22 20:00 76 03/23/22 20:20 94 Nasal Cannula 2 03/23/22 20:19 72 20 03/23/22 20:07 77 20 03/23/22 19:38 36.6 C 78 22 H 165/64 H 99 Intake/Output Intake/Output: Intake & Output 03/21/22 03/22/22 03/23/22 03/24/22 23:
--- NOTE | 2022-03-24 13:11 | P.PNNP_ITS ---
Progress Note: A&P Assessment and Plan (1) MARINA (acute kidney injury): Code(s): N17.9 - Acute kidney failure, unspecified Status: Acute Assessment and Plan: * creatinine up from baseline * presumably due to escalating diuretic therapy * however, urine output was declining despite use of diuretics as well * issues with increased lethargy concerning for uremia * s/p HD catheter placement (on 03/21/22) * plan HD tomorrow * hopefully dialysis is temporary again but I worry that this is her second bout of MARINA/ARF in the last month * follow trend of repeat labs and UOP * suspect she may need outpatient dialysis this time.... (2) Stage 3b chronic kidney disease: Code(s): N18.32 - Chronic kidney disease, stage 3b Status: Chronic Assessment and Plan: * baseline creatinine runs ~ 1.6 - 2.2mg/dl * likely due to CAD/CHF, vascular disease, diabetes, and age-related change (3) Acute on chronic diastolic heart failure: Code(s): I50.33 - Acute on chronic diastolic (congestive) heart failure Status: Acute Assessment and Plan: * seems exacerbated by limited diuresis/diuretic resistance * was on IV bumex * holding diuretics due to rising BUN * continue fluid removal with dialysis * follow daily weights and I/Os * Cardiology recommendations noted (4) Atrial fibrillation: Code(s): I48.91 - Unspecified atrial fibrillation Status: Chronic Assessment and Plan: * Cardiology following * continue rate control strategy with medications * already on anticoagulation (5) Hypertension: Code(s): I10 - Essential (primary) hypertension Status: Chronic Assessment and Plan: * quite elevated at times * likely precipitated by MARINA and volume overload? * considering adding PRN IV or oral hydralazine (although titration of metop rolol and verapamil may help as well) * hopefully fluid removal with HD will help to some degree * follow trend of hemodynamics (6) Anemia: Code(s): D64.9 - Anemia, unspecified Status: Acute Assessment and Plan: * likely due to CKD, and acute illness * Epogen with HD * follow H/H (7) Type 2 diabetes mellitus with hyperglycemia: Code(s): E11.65 - Type 2 diabetes mellitus with hyperglycemia Status: Chronic Assessment and Plan: * follow accuchecks * glycemic control Will continue to follow. Subjective Date/time seen: 03/24/22 13:11 Tolerated dialysis treatment yesterday without any issue or problems; urine output decreased in last 24 hours (but this could be due to more aggressive ultrafiltration with dialysis); issues noted with in/out atrial fibrillation with RVR; states breathing is troublesome due to asthma -- no other acute distress noted. at bedside and we discussed the situation. Exam Narrative: General: WD/WN in NAD Heart: normal S1 and S2; no rub Lungs: coarse breath sounds; diminished at bases associated with a few crackles Abdomen: soft, nontender, nondistended, positive bowel sounds Extremities: no cyanosis or clubbing; 1+ edema Skin: warm and dry Objective Data Vital Signs Vital Signs: Vital Signs Temp Pulse Resp BP Pulse Ox O2 Del Method O2 Flow Rate 03/24/22 12:00 118 H 03/24/22 12:05 128 H 03/24/22 11:18 129/74 03/24/22 08:30 Room
[2022-03-24 14:16] LABS: Partial Thromboplastin Time 58.8 SECONDS (22.3-36.8)
[2022-03-24 14:48] LABS: Alanine Aminotransferase 20 U/L (6-35); Albumin Level 3.4 g/dL (3.5-5.1); Alkaline Phosphatase 96 U/L (38-126); Anion Gap 10 mmol/L (8-16); Aspartate Amino Transferase 36 U/L (14-36); Bilirubin,Total 0.6 mg/dL (0.2-1.3); Blood Urea Nitrogen 48 mg/dL (7-17); Calcium 8.6 mg/dL (8.4-10.2); Carbon Dioxide 32 mmol/L (22-30); Chloride 94 mmol/L (98-107); Estimated CRCL calculation 30 ml/min; Estimated Glomerular Filt Rate 24; Glucose 229 mg/dL (65-110); Potassium 3.8 mmol/L (3.4-5.0); Sodium 136 mmol/L (137-145)
--- NOTE | 2022-03-24 15:09 | PM.PNCARD ---
Progress Note: A&P Assessment and Plan (1) Atrial fibrillation: Code(s): I48.91 - Unspecified atrial fibrillation Status: Acute Plan 71-year-old lady with diastolic dysfunction and evidence of advancing renal insufficiency and volume overload. She is back on hemodialysis at this time with temporary access and from that perspective is stable and improving. We are seeing intermittent atrial fibrillation with a on telemetry with propensity for more of this in the last 24-48 hours. The simplest initial maneuvers to advance her beta-mike dosage. I am going to give her an extra 50 mg now and then raise her daily dosage from 25-50 mg. Continue verapamil for now. She is anticoagulated with IV heparin for the time being. We will follow her with you. She will need oral anticoagulation to be initiated prior to the time of discharge because of this Uriel Gillette MD [facility]( for [place] [facility]) Subjective Date/time seen: Date of service: 03/24/22 15:09 Interval history: Follow-up visit in this 71-year-old lady with: History of diastolic heart failure and worsening end-stage renal disease with volume overload and CHF. Patient started hemodialysis again a couple of days ago was treated 2 days this week for volume overload. Called by the staff today to see her again because of increasing propensity for atrial fibrillation over the last 24-48 hours. Patient has nose direct symptom or awareness of his her atrial fibrillation. She does not have any previous history of this to the best of my knowledge. She was in sinus rhythm at the time I saw her on the day of admission. Receiving low-dose of metoprolol as well as moderate dose of verapamil. Heart rate is about 110. Exam Const: General: comfortable Other: Obese woman pleasant cooperative head of the bed elevated about 45? no distress HENMT: Mouth: Yes moist mucous membranes Eyes: Sclera: sclerae normal Neck: Neck: supple Other: It ability to discern JVD given her body habitus Resp: Effort & Inspection: normal respiratory effort Auscultation: clear to auscultation bilaterally Cardio: Rhythm: abnormal rhythm irregularly irregular Other: PMI not palpable no murmur no gallop GI: GI Palp: Yes Soft to palpation Auscultation: normal bowel sounds Skin: General skin exam: normal color Neuro: Other: Alert and oriented x3 Objective Data Vital Signs Vital Signs: Vital Signs - 24 hr 03/23/22 15:16 03/23/22 15:24 03/23/22 16:00 Temperature Pulse Rate 148 H 148 H 137 H Respiratory Rate Blood Pressure Pulse Oximetry Oxygen Delivery Oxygen Flow Rate 03/23/22 19:38 03/23/22 20:07 03/23/22 20:19 Temperature 36.6 C Pulse Rate 78 77 72 Respiratory Rate 22 H 20 20 Blood Pressure 165/64 H Pulse Oximetry 99 Oxygen Delivery Oxygen Flow Rate 03/23/22 20:20 03/23/22 20:00 03/23/22 20:00 Temperature Pulse Rate 76 72 Respiratory Rate 20 Blood Pressure Pulse Oximetry 94 94 Oxygen Delivery Nasal Cannula Nasal Cannula Oxygen Flow Rate 2 2 03/24/22 00:00 03/24/22 04:00 03/24/22 04:46 Temperature 36.6 C Pulse Rate 72 74 74 Respiratory Rate 18 Blood Pressure 159/69 H Pulse Oximetry 93 Oxygen Delivery Oxygen Flow Rate 03/24/22 01:50 03/24/22 02:00 03/24/22 09:34 Temperature Pulse Rate 77 76 Respiratory Rate 20 20 Blood Pressure Pulse Oximetry 90 Oxygen Delivery Room Air Oxygen Flow Rate 03/24/22 10:00 03/24/22 10:41 03/24/22 08:30 Temperature Pulse Rate 68 141 H 69 Respiratory Rate 20 Blood Pressure Pulse Oximetry Oxygen Delivery Oxygen Flow Rate 03/24/22 08:30 03/24/22 11:18 03/24/22 12:05 Temperature Pulse Rate 128 H Respiratory Rate Blood Pressure 129/74 Pulse Oximetry Oxygen Delivery Room Air Oxygen Flow Rate 03/24/22 12:00 03/24/22 15:01 Temperature Pulse Rate 118 H 70 Respiratory Rate 20 Blood Pre
--- NOTE | 2022-03-24 15:14 | PM.IMPN ---
Progress Note: A&P Assessment and Plan (1) Altered mental status: Code(s): R41.82 - Altered mental status, unspecified Status: Acute Assessment and Plan: suspect this is secondary to uremia despite creatinine numbers being quite moderate, BUN is climbing significantly, GFR unchanged at 14 Back to baseline currently (2) Anemia: Code(s): D64.9 - Anemia, unspecified Status: Acute Assessment and Plan: Appears to be at baseline, does receive Epogen, will defer to Nephrology for further management, no signs of a GI bleed at this time (3) CKD (chronic kidney disease): Code(s): N18.9 - Chronic kidney disease, unspecified Status: Acute Assessment and Plan: chronic kidney disease worsened Recently was on the hospital with MARINA needing dialysis temporarily with renal function back to baseline at the time of discharge without dialysis Kidney function continues to worsen since discharge with low urine output Dialysis catheter placed 03/21/2022 and hemodialysis [id number] (4) DVT (deep venous thrombosis): Code(s): I82.409 - Acute embolism and thrombosis of unspecified deep veins of unspecified lower extremity Status: Acute Assessment and Plan: Heparin drip, hold Xarelto with underlying chronic kidney disease Xarelto is not an option Will ask care coordination to look into Eliquis cover is If this is an issue will need to start warfarin (5) Acute respiratory failure: Code(s): J96.00 - Acute respiratory failure, unspecified whether with hypoxia or hypercapnia Status: Acute Assessment and Plan: Supplemental oxygen as needed, suspect this will improve as pulmonary edema improves (6) Asthma-COPD overlap syndrome: Code(s): J44.9 - Chronic obstructive pulmonary disease, unspecified Status: Acute Assessment and Plan: Hold off on steroids, does not appear to be in acute exacerbation, continue home treatments (7) Hypertension: Code(s): I10 - Essential (primary) hypertension Status: Chronic Assessment and Plan: Stable (8) Acute on chronic diastolic heart failure: Code(s): I50.33 - Acute on chronic diastolic (congestive) heart failure Status: Acute Assessment and Plan: Appreciate cardiology consultation, fluid overload appears to be secondary to kidney disease, management per Nephrology (9) MARINA (acute kidney injury): Code(s): N17.9 - Acute kidney failure, unspecified Status: Acute Assessment and Plan: Appreciate nephrology management, she did need dialysis during her last admission started on dialysis 03/22/2022 may need long-term dialysis await Nephrology input (10) RAINA (obstructive sleep apnea): Code(s): G47.33 - Obstructive sleep apnea (adult) (pediatric) Status: Acute Assessment and Plan: Continue CPAP at night as tolerated (11) Hypothyroidism (acquired): Code(s): E03.9 - Hypothyroidism, unspecified Status: Acute Assessment and Plan: Continue home medication TSH elevated, follow-up outpatient (12) ARACELY (generalized anxiety disorder): Code(s): F41.1 - Generalized anxiety disorder Status: Acute Assessment and Plan: Hold Xanax for now due to altered mental status (13) 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 Will reassess after dialysis for adjustment of her blood pressure medications . Will start her verapamil home does AFib with RVR intermittently. Started on metoprolol with spontaneous resolution
[2022-03-24] MEDS: HEPARIN SODIUM 5,000 UNITS/ML VIAL 3500 UNITS IV PUSH (15:53)
[2022-03-24] MEDS: METOPROLOL TARTRATE 50 MG TAB PO (15:55)
--- NOTE | 2022-03-24 17:20 | PC.NURSE ---
Patient heart rate resting in low 40's and blood pressure reading 90/58. Dr Macedo contacted and orders were put into the MAR.
[2022-03-24 17:22] LABS: Glucose Point of Care 258 mg/dl (65-105)
--- NOTE | 2022-03-24 18:25 | PC.NURSE ---
Patient heart rate resting in the 60's and blood pressure is 132/66. Reached out to Dr. Macedo and orders placed in MAR are no longer to be given (see MAR).
[2022-03-24 18:28] LABS: Glucose Point of Care 267 mg/dl (65-105)
--- NOTE | 2022-03-24 18:45 | PC.NURSE ---
Called respiratory and asked for nebulizers to be given at 1900 if possible.
[2022-03-24] MEDS: MELATONIN 5 MG TABLET PO (20:53)
[2022-03-24] MEDS: INSULIN GLARGINE (*BKC) 100 UNITS/ML 40 UNITS SUB-Q (20:54)
[2022-03-24 21:29] LABS: Glucose Point of Care 251 mg/dl (65-105)
[2022-03-24 22:40] LABS: Partial Thromboplastin Time 105.6 SECONDS (22.3-36.8)
[2022-03-24 23:37] LABS: Appearance Urine Clear (Clear); Bilirubin Urine 2+ (Negative); Blood Urine Trace-lysed (Negative); Color Urine Yellow (Yellow); Glucose Urine UA Negative (Negative); Ketones Urine Trace mg/dL (Negative); Leukocyte Esterase Ur 1+ LEU/UL (Negative); Nitrate Urine Negative (Negative); Protein Urine 1+ mg/dL (Negative); Specific Grav Ur >= 1.030 (1.001-1.035)
[2022-03-24 23:42] LABS: Add Urine Microscopic? YES; Bacteria Urine Trace /hpf; Mucus Urine Rare /lpf; RBC Urine 21-50 /hpf (0-2); Squamous Epithelial Cell Urine Occasional /hpf (Few); WBC Urine >75 /hpf
[2022-03-25] VITALS (34 sets, daily range): BP systolic 151–213; BP diastolic 57–101; PULSE 63–147; RESP 18–24; TEMP 36.2–36.8; O2SAT 92–98
[2022-03-25] MEDS: HEPARIN SOD/D5W 100 UNITS/ML 25,000 UNITS/250 ML BAG 17 UNITS IV CONT ×2 (00:56→18:01)
[2022-03-25] MEDS: ALBUTEROL SULFATE NEB 2.5 MG/3 ML INH INHALATION ×4 (01:43→21:20)
[2022-03-25] MEDS: IPRATROPIUM BR 0.02% INH SOLN 0.5 MG/2.5 ML VIAL INHALATION ×4 (01:43→21:20)
[2022-03-25 02:52] LABS: Hepatitis B Core Ab Total Nonreactive (Nonreactive)
[2022-03-25] MEDS: LEVOTHYROXINE SODIUM 150 MCG TABLET PO (06:24)
[2022-03-25] MEDS: LEVOTHYROXINE SODIUM 25 MCG TABLET PO (06:24)
[2022-03-25 06:44] LABS: Basophils Absolute Auto 0.1 K/mm3 (0.0-0.1); Basophils Percent Auto 0.4 % (0.2-1.2); Eosinophils Absolute Auto 0.3 K/mm3 (0-0.3); Eosinophils Percent Auto 1.4 % (0-4.4); Hemoglobin 8.1 g/dL (12.0-15.0); Immature Granulocyte Absolute 0.26 K/mm3 (0.00-0.031); Immature Granulocyte Percent A 1.3 % (0-0.5); Lymphocytes Percent Auto 12.9 % (18.3-44.2); Mean Corpuscular HGB Conc 28.9 g/dl (32-36); Mean Corpuscular Hemoglobin 25.2 pg (26-34); Mean Corpuscular Volume 87.2 fl (80-100); Mean Platelet Volume 9.8 fl (7.4-10.4); Monocytes Absolute Auto 2.2 K/mm3 (0.1-0.6); Monocytes Percent Auto 11.5 % (2.6-8.5); Neutrophils Absolute Auto 14.1 K/mm3 (1.3-6.7); Neutrophils Percent Auto 72.5 % (45.5-73.1); Nucleated Red Blood Cells Perc 0.2 % (0.0-0.2); Platelet Count Result 404 k/mm3 (150-375); Red Blood Count 3.21 M/mm3 (4.2-5.4); Red Cell Distribution Width 17.6 % (11.5-14.5); White Blood Count 19.5 K/mm3 (4.5-10.0)
[2022-03-25 06:57] LABS: Partial Thromboplastin Time 99.9 SECONDS (22.3-36.8)
[2022-03-25 07:07] LABS: Alanine Aminotransferase 25 U/L (6-35); Albumin Level 3.4 g/dL (3.5-5.1); Alkaline Phosphatase 100 U/L (38-126); Anion Gap 11 mmol/L (8-16); Aspartate Amino Transferase 46 U/L (14-36); Bilirubin,Total 0.6 mg/dL (0.2-1.3); Blood Urea Nitrogen 61 mg/dL (7-17); Calcium 8.8 mg/dL (8.4-10.2); Carbon Dioxide 29 mmol/L (22-30); Chloride 95 mmol/L (98-107); Estimated CRCL calculation 26 ml/min; Estimated Glomerular Filt Rate 21; Glucose 191 mg/dL (65-110); Magnesium 2.1 mg/dL (1.6-2.3); Potassium 3.8 mmol/L (3.4-5.0); Sodium 135 mmol/L (137-145)
[2022-03-25 07:44] LABS: Platelet Estimate Adequate (Adequate)
[2022-03-25 07:45] LABS: Anisocytosis 2+ (NORMAL); Hypochromasia 1+ (NORMAL); Ovalocytes 1+ (NORMAL)
[2022-03-25 08:09] LABS: Schistocytes None Seen (NORMAL)
--- NOTE | 2022-03-25 08:10 | PC.NURSE ---
Patient off unit to dialysis. Morning medications not given.
[2022-03-25] MEDS: FLUTICASONE/UMECLIDIN/VILANTER 200-62.5-25 MCG ELLIPTA 1 PUFF INHALATION (08:47)
[2022-03-25] MEDS: EPOETIN ALFA-EPBX 10,000 UNITS/ML VIAL 10000 UNITS IV PUSH (09:16)
[2022-03-25] MEDS: METOPROLOL SUCCINATE EXT REL 50 MG TABCR PO ×2 (09:23→23:04)
--- NOTE | 2022-03-25 09:23 | PC.NURSE ---
Patient was given morning dose of scheduled metoprolol in dialysis. Blood pressure was elevated (see vitals).
--- NOTE | 2022-03-25 10:58 | P.PNNP_ITS ---
Progress Note: A&P Assessment and Plan (1) MARINA (acute kidney injury): Code(s): N17.9 - Acute kidney failure, unspecified Status: Acute Assessment and Plan: * creatinine up from baseline on admission associated with higher BUN as well * presumably due to escalating diuretic therapy * however, urine output declining despite use of IV diuretics as well * issues with increased lethargy concerning for uremia along with rising BUN with IV diuretic use * s/p HD catheter placement (on 03/21/22) * HD toay * hopefully dialysis is temporary again but I amd concerned as this is her second bout of MARINA/ARF in the last 2 months * follow trend of repeat labs and UOP * suspect she may need outpatient dialysis this time around * follow repeat labs and UOP with holding dialysis * resume diuretics (2) Stage 3b chronic kidney disease: Code(s): N18.32 - Chronic kidney disease, stage 3b Status: Chronic Assessment and Plan: * baseline creatinine runs ~ 1.6 - 2.2mg/dl * likely due to CAD/CHF, vascular disease, diabetes, and age-related change (3) Acute on chronic diastolic heart failure: Code(s): I50.33 - Acute on chronic diastolic (congestive) heart failure Status: Acute Assessment and Plan: * seems exacerbated by limited diuresis/diuretic resistance * was on IV bumex * but limited UOP and rising BUN noted * continue fluid removal with dialysis * follow daily weights and I/Os * Cardiology recommendations noted (4) Atrial fibrillation: Code(s): I48.91 - Unspecified atrial fibrillation Status: Chronic Assessment and Plan: * Cardiology following * continue rate control strategy with medications * already on anticoagulation (5) Hypertension: Code(s): I10 - Essential (primary) hypertension Status: Chronic Assessment and Plan: * quite elevated at times * likely precipitated by MARINA and volume overload? * considering adding PRN IV or oral hydralazine (although titration of metoprolol and verapamil may help as well) * hopefully fluid removal with HD will help to some degree * follow trend of hemodynamics (6) Anemia: Code(s): D64.9 - Anemia, unspecified Status: Acute Assessment and Plan: * likely due to CKD, and acute illness * Epogen with HD * follow H/H (7) Type 2 diabetes mellitus with hyperglycemia: Code(s): E11.65 - Type 2 diabetes mellitus with hyperglycemia Status: Chronic Assessment and Plan: * follow accuchecks * glycemic control Will continue to follow. Subjective Date/time seen: 03/25/22 10:58 Tolerated hemodialysis treatment at the time of my visit (seen on HD at ~ 10:45AM); feels breathing is doing better with nebulizer treatments; urine output seems to have decreased in the last 24 - 48 hours; UA concerning for possible UTI; no acute distress noted currently. Exam Narrative: General: WD/WN in NAD Heart: normal S1 and S2; no rub Lungs: coarse breath sounds and diminished at bases Abdomen: soft, nontender, nondistended, positive bowel sounds Extremities: no cyanosis or clubbing; 1+ edema Skin: warm and intact Objective Data Vital Signs Vital Signs: Vital Signs Temp Pulse Resp BP Pulse Ox O2 Del Method O2 Flow Rate 03/25/22 10:00 69 198/78 H 03/25/22 09:40 68 177/83 H
--- NOTE | 2022-03-25 10:58 | PM.PNNEP ---
Progress Note: A&P Assessment and Plan (1) MARINA (acute kidney injury): Code(s): N17.9 - Acute kidney failure, unspecified Status: Acute Assessment and Plan: creatinine up from baseline on admission associated with higher BUN as well presumably due to escalating diuretic therapy however, urine output declining despite use of IV diuretics as well issues with increased lethargy concerning for uremia along with rising BUN with IV diuretic use s/p HD catheter placement (on 03/21/22) HD toay hopefully dialysis is temporary again but I amd concerned as this is her second bout of MARINA/ARF in the last 2 months follow trend of repeat labs and UOP suspect she may need outpatient dialysis this time around follow repeat labs and UOP with holding dialysis resume diuretics (2) Stage 3b chronic kidney disease: Code(s): N18.32 - Chronic kidney disease, stage 3b Status: Chronic Assessment and Plan: baseline creatinine runs ~ 1.6 - 2.2mg/dl likely due to CAD/CHF, vascular disease, diabetes, and age-related change (3) Acute on chronic diastolic heart failure: Code(s): I50.33 - Acute on chronic diastolic (congestive) heart failure Status: Acute Assessment and Plan: seems exacerbated by limited diuresis/diuretic resistance was on IV bumex but limited UOP and rising BUN noted continue fluid removal with dialysis follow daily weights and I/Os Cardiology recommendations noted (4) Atrial fibrillation: Code(s): I48.91 - Unspecified atrial fibrillation Status: Chronic Assessment and Plan: Cardiology following continue rate control strategy with medications already on anticoagulation (5) Hypertension: Code(s): I10 - Essential (primary) hypertension Status: Chronic Assessment and Plan: quite elevated at times likely precipitated by MARINA and volume overload? considering adding PRN IV or oral hydralazine (although titration of metoprolol and verapamil may help as well) hopefully fluid removal with HD will help to some degree follow trend of hemodynamics (6) Anemia: Code(s): D64.9 - Anemia, unspecified Status: Acute Assessment and Plan: likely due to CKD, and acute illness Epogen with HD follow H/H (7) Type 2 diabetes mellitus with hyperglycemia: Code(s): E11.65 - Type 2 diabetes mellitus with hyperglycemia Status: Chronic Assessment and Plan: follow accuchecks glycemic control Will continue to follow. Subjective Date/time seen: 03/25/22 10:58 Tolerated hemodialysis treatment at the time of my visit (seen on HD at ~ 10:45AM); feels breathing is doing better with nebulizer treatments; urine output seems to have decreased in the last 24 - 48 hours; UA concerning for possible UTI; no acute distress noted currently. Exam Narrative: General: WD/WN in NAD Heart: normal S1 and S2; no rub Lungs: coarse breath sounds and diminished at bases Abdomen: soft, nontender, nondistended, positive bowel sounds Extremities: no cyanosis or clubbing; 1+ edema Skin: warm and intact Objective Data Vital Signs Vital Signs: Vital Signs Temp Pulse Resp BP Pulse Ox O2 Del Method O2 Flow Rate 03/25/22 10:00 69 198/78 H 03/25/22 09:40 68 177/83 H 03/25/22 09:20 70 193/86 H 03/25/22 09:29 193/86 H 03/25/22 09:23 70 03/25/22 09:00 68 213/59 H 03/25/22 08:40 67 208/96 H 03/25/22 08:20 68 189/91 H 03/25/22 08:17 68 198/99 H 03/25/22 07:57 36.8 C 64 22 H 204/101 H 03/25/22 04:49 36.2 C L 63 20 157/57 H 98 03/25/22 04:25 67 03/25/22 00:00 67 03/25/22 01:47 74 20 03/25/22 01:47 96 03/25/22 01:35 66 20 03/25/22 01:35 66 96 Nasal Cannula 2 03/24/22 20:00 93 Nasal Cannula 2 03/24/22 20:00 79 03/24/22 22:40 Autop
--- NOTE | 2022-03-25 12:10 | PC.NURSE ---
Patient returned to unit from dialysis.
[2022-03-25 12:58] LABS: Glucose Point of Care 119 mg/dl (65-105)
--- NOTE | 2022-03-25 13:27 | PM.IMPN ---
Progress Note: A&P Assessment and Plan (1) Altered mental status: Code(s): R41.82 - Altered mental status, unspecified Status: Acute Assessment and Plan: suspect this is secondary to uremia despite creatinine numbers being quite moderate, BUN is climbing significantly, GFR unchanged at 14 Back to baseline currently (2) Anemia: Code(s): D64.9 - Anemia, unspecified Status: Acute Assessment and Plan: Appears to be at baseline, does receive Epogen, will defer to Nephrology for further management, no signs of a GI bleed at this time (3) CKD (chronic kidney disease): Code(s): N18.9 - Chronic kidney disease, unspecified Status: Acute Assessment and Plan: chronic kidney disease worsened Recently was on the hospital with MARINA needing dialysis temporarily with renal function back to baseline at the time of discharge without dialysis Kidney function continues to worsen since discharge with low urine output Dialysis catheter placed 03/21/2022 and hemodialysis [id number] (4) DVT (deep venous thrombosis): Code(s): I82.409 - Acute embolism and thrombosis of unspecified deep veins of unspecified lower extremity Status: Acute Assessment and Plan: Heparin drip, hold Xarelto with underlying chronic kidney disease Xarelto is not an option Will ask care coordination to look into Eliquis cover is If this is an issue will need to start warfarin (5) Acute respiratory failure: Code(s): J96.00 - Acute respiratory failure, unspecified whether with hypoxia or hypercapnia Status: Acute Assessment and Plan: Supplemental oxygen as needed, suspect this will improve as pulmonary edema improves (6) Asthma-COPD overlap syndrome: Code(s): J44.9 - Chronic obstructive pulmonary disease, unspecified Status: Acute Assessment and Plan: Hold off on steroids, does not appear to be in acute exacerbation, continue home treatments (7) Hypertension: Code(s): I10 - Essential (primary) hypertension Status: Chronic Assessment and Plan: Stable (8) Acute on chronic diastolic heart failure: Code(s): I50.33 - Acute on chronic diastolic (congestive) heart failure Status: Acute Assessment and Plan: Appreciate cardiology consultation, fluid overload appears to be secondary to kidney disease, management per Nephrology (9) MARINA (acute kidney injury): Code(s): N17.9 - Acute kidney failure, unspecified Status: Acute Assessment and Plan: Appreciate nephrology management, she did need dialysis during her last admission started on dialysis 03/22/2022 may need long-term dialysis await Nephrology input (10) RAINA (obstructive sleep apnea): Code(s): G47.33 - Obstructive sleep apnea (adult) (pediatric) Status: Acute Assessment and Plan: Continue CPAP at night as tolerated (11) Hypothyroidism (acquired): Code(s): E03.9 - Hypothyroidism, unspecified Status: Acute Assessment and Plan: Continue home medication TSH elevated, follow-up outpatient (12) ARACELY (generalized anxiety disorder): Code(s): F41.1 - Generalized anxiety disorder Status: Acute Assessment and Plan: Hold Xanax for now due to altered mental status (13) 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
--- NOTE | 2022-03-25 13:41 | PM.PNCARD ---
Progress Note: A&P Assessment and Plan (1) Atrial fibrillation: Code(s): I48.91 - Unspecified atrial fibrillation Status: Chronic Assessment and Plan: Back in sinus rhythm. 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 Patient started hemodialysis again a couple of days ago was treated 2 days this week for volume overload. Called by the staff today to see her again because of increasing propensity for atrial fibrillation over the last 24-48 hours. Follow-up note 03/24/2022: She reverted to sinus rhythm overnight. She feels okay today. No chest pain. She does have shortness of this is new or different. Review of Systems Review of Systems: All systems reviewed & are unremarkable except as noted in HPI and below Constitutional: Constitutional: Reports fatigue and Reports lethargy Eyes: Eyes: Reports no additional eye complaints ENT: Reports system reviewed and no additional complaints, except as documented Cardiovascular: Cardiovascular: Reports no additional cardiovascular complaints, Denies chest pain and Reports dyspnea on exertion Respiratory: Respiratory: Reports dyspnea on exertion Gastrointestinal: Gastrointestinal: Reports nausea Musculoskeletal: Musculoskeletal: Reports no additional musculoskeletal complaints Integumentary/Breasts: Skin/Breast: Reports system reviewed and no additional complaints, except as docu Neurologic: Reports system reviewed and no additional complaints, except as documented Endocrine: Endocrine: Reports no additional endocrine complaints and Reports fatigue Hematologic/Lymphatic: Hematologic/Lymphatic: Reports no additional hematologic/lymphatic complaints Allergic/Immunologic: Allergic/Immunologic: Reports no additional allergic/immunologic complaints Exam Narrative: Awake alert oriented Const: General: comfortable and no acute distress HENMT: Mouth: Yes moist mucous membranes Eyes: General: appearance normal, both eyes and all related structures Sclera: sclerae normal Neck: Neck: supple Other: It ability to discern JVD given her body habitus Resp: Effort & Inspection: normal respiratory effort Other: diminished breath sounds at the bases bilaterally Cardio: Rate: regular rate Rhythm: regular rhythm Other: PMI not palpable no murmur no gallop GI: Auscultation: normal bowel sounds Skin: General skin exam: normal color Neuro: Speech: normal speech Sensory Exam: normal sensation Other: Alert and oriented x3 Extrem: Other: 1+ bilateral lower extremity edema Psych: Mental Status: mental status grossly normal Objective Data Vital Signs Vital Signs: Vital Signs - 24 hr 03/24/22 15:01 03/24/22 15:22 03/24/22 15:44 Temperature 36.6 C Pulse Rate 70 70 79 Respiratory Rate 20 16 Blood Pressure 111/62 Pulse Oximetry 96 91 Oxygen Delivery Autopap Oxygen Flow Rate 03/24/22 15:55 03/24/22 17:15 03/24/22 18:25 Temperature Pulse Rate 73 43 L 64 Respiratory Rate Blood Pressure 90/58 L 132/66 Pulse Oximetry Oxygen Delivery Oxygen Flow Rate 03/24/22 16:00 03/24/22 19:29 03/24/22 20:00 Temperature 36.1 C L Pulse Rate 75 65 Respiratory Rate 24 H 23 H Blood Pressure 133/47 L Pulse Oximetry 92 Oxygen Delivery Autopap Oxygen Flow Rate 03/24/22 22:40 03/24/22 20:00 03/24/22 20:00 Tempera
--- NOTE | 2022-03-25 16:07 | PC.NURSE ---
Patient only has one IV access and unable to obtain another IV access at this time. Heparin drip was paused in order to give scheduled dose of ceftriaxone. Heparin drip was resumed once dose ceftriaxone was finished running.
[2022-03-25 17:14] LABS: INR 1.3; Prothrombin Time 15.7 Seconds (11.1-14.7)
[2022-03-25 17:49] LABS: Glucose Point of Care 195 mg/dl (65-105)
[2022-03-25] MEDS: FERROUS SULFATE 324 MG TABLET PO (17:57)
[2022-03-25] MEDS: WARFARIN (*PBKC) 5 MG TABLET PO (17:58)
[2022-03-25] MEDS: GABAPENTIN 300 MG CAPSULE PO (20:18)
[2022-03-25] MEDS: MELATONIN 5 MG TABLET PO (20:18)
[2022-03-25] MEDS: INSULIN GLARGINE (*BKC) 100 UNITS/ML 40 UNITS SUB-Q (20:18)
[2022-03-25 20:26] LABS: Glucose Point of Care 245 mg/dl (65-105)
[2022-03-25] MEDS: METOPROLOL TARTRATE INJ 5 MG/5 ML VIAL IV PUSH (22:59)
--- NOTE | 2022-03-25 23:11 | PC.NURSE ---
TELEMETRY ALARM NOTED TO BE TACHYCARDIC EPISODES NOTED 140-150S. WHEN ENTERING ROOM PATIENT APPEARS COMFORTABLE WITH NO COMPLAINTS AT THIS TIME. DENIES CHEST PAINS/FLUTTERING, RANDLE, LH OR DIZZINESS. PATIENT PULLED UP IN BED, HOB IS ELEVATED AND OXYGEN APPLIED. PATIENT HAD RECENT NEB TX. PHYSICIAN NOTIFIED.
--- NOTE | 2022-03-25 23:54 | PC.NURSE ---
MALATHI BESIDE NOTED ELEVATED PULSE. ATTEMPT TO SNVERT PATIENT WITH PASSIVE TREATMENT. COACHING PATIENT TO BEAR DOWN WHILE WAITING ON DIGOXIN. THESE ACTIONS RESULTED IN NO CHANGE IN CONDITION.
[2022-03-26] VITALS (20 sets, daily range): BP systolic 144–166; BP diastolic 52–85; PULSE 52–75; RESP 18–22; TEMP 36.3; O2SAT 82–100
--- NOTE | 2022-03-26 | PC.NURSE ---
PT CONVERTS BACK TO NSR WITHOUT ADMINISTRATION OF DIGOXIN. RHYTHM 70s
[2022-03-26] MEDS: IPRATROPIUM BR 0.02% INH SOLN 0.5 MG/2.5 ML VIAL INHALATION ×4 (01:30→20:04)
[2022-03-26] MEDS: ALBUTEROL SULFATE NEB 2.5 MG/3 ML INH INHALATION (01:30)
[2022-03-26] MEDS: HYDROcodone/acetaminophen (*CRX) 5-325 MG TABLET 1 TAB PO (04:18)
[2022-03-26 05:22] LABS: Basophils Absolute Auto 0.1 K/mm3 (0.0-0.1); Basophils Percent Auto 0.6 % (0.2-1.2); Eosinophils Absolute Auto 0.4 K/mm3 (0-0.3); Eosinophils Percent Auto 2.4 % (0-4.4); Hematocrit 29.7 % (37.0-47.0); Hemoglobin 8.4 g/dL (12.0-15.0); Immature Granulocyte Absolute 0.25 K/mm3 (0.00-0.031); Immature Granulocyte Percent A 1.6 % (0-0.5); Lymphocytes Absolute Auto 1.81 K/mm3 (0.9-3.2); Lymphocytes Percent Auto 11.9 % (18.3-44.2); Mean Corpuscular HGB Conc 28.3 g/dl (32-36); Mean Corpuscular Hemoglobin 24.8 pg (26-34); Mean Corpuscular Volume 87.6 fl (80-100); Mean Platelet Volume 9.7 fl (7.4-10.4); Monocytes Absolute Auto 2.1 K/mm3 (0.1-0.6); Monocytes Percent Auto 13.7 % (2.6-8.5); Neutrophils Absolute Auto 10.6 K/mm3 (1.3-6.7); Neutrophils Percent Auto 69.8 % (45.5-73.1); Nucleated Red Blood Cells Perc 0.1 % (0.0-0.2); Platelet Count Result 333 k/mm3 (150-375); Red Blood Count 3.39 M/mm3 (4.2-5.4); Red Cell Distribution Width 17.6 % (11.5-14.5); White Blood Count 15.2 K/mm3 (4.5-10.0)
[2022-03-26 05:33] LABS: INR 1.3; Prothrombin Time 15.8 Seconds (11.1-14.7)
[2022-03-26 05:35] LABS: Alanine Aminotransferase 23 U/L (6-35); Albumin Level 3.5 g/dL (3.5-5.1); Alkaline Phosphatase 90 U/L (38-126); Anion Gap 10 mmol/L (8-16); Aspartate Amino Transferase 28 U/L (14-36); Bilirubin,Total 0.4 mg/dL (0.2-1.3); Blood Urea Nitrogen 37 mg/dL (7-17); Calcium 8.6 mg/dL (8.4-10.2); Carbon Dioxide 24 mmol/L (22-30); Chloride 101 mmol/L (98-107); Estimated CRCL calculation 35 ml/min; Estimated Glomerular Filt Rate 29; Glucose 188 mg/dL (65-110); Magnesium 2.1 mg/dL (1.6-2.3); Potassium 3.9 mmol/L (3.4-5.0); Sodium 135 mmol/L (137-145)
[2022-03-26] MEDS: LEVOTHYROXINE SODIUM 25 MCG TABLET PO (06:16)
[2022-03-26] MEDS: LEVOTHYROXINE SODIUM 150 MCG TABLET PO (06:16)
[2022-03-26 06:53] LABS: Anisocytosis 1+ (NORMAL); Hypochromasia 1+ (NORMAL); Platelet Estimate Adequate (Adequate)
[2022-03-26 06:54] LABS: Ovalocytes 1+ (NORMAL)
[2022-03-26 07:01] LABS: Schistocytes None Seen (NORMAL)
[2022-03-26] MEDS: GABAPENTIN 300 MG CAPSULE PO ×2 (08:10→20:17)
[2022-03-26] MEDS: FLUTICASONE PROPIONATE 0.05% NA SPR 16 GM BTL (*BKC) 2 SPRAY NASAL (08:10)
[2022-03-26] MEDS: FERROUS SULFATE 324 MG TABLET PO ×2 (08:11→17:23)
[2022-03-26] MEDS: VERAPAMIL HCL 180 MG TABLET ER 360 MG PO (08:11)
[2022-03-26] MEDS: MONTELUKAST SODIUM 10 MG TABLET PO (08:11)
[2022-03-26] MEDS: METOPROLOL SUCCINATE EXT REL 50 MG TABCR PO (08:11)
[2022-03-26] MEDS: FLUTICASONE/UMECLIDIN/VILANTER 200-62.5-25 MCG ELLIPTA 1 PUFF INHALATION (08:47)
[2022-03-26 09:04] LABS: Glucose Point of Care 167 mg/dl (65-105)
[2022-03-26] MEDS: BUMETANIDE INJ 2.5 MG/10 ML VIAL 2 MG IV PUSH ×2 (09:05→17:23)
[2022-03-26] MEDS: PANTOPRAZOLE SODIUM IV 40 MG VIAL IV PUSH (09:05)
--- NOTE | 2022-03-26 10:14 | PM.PNCARD ---
Progress Note: A&P Assessment and Plan (1) Atrial fibrillation: Code(s): I48.91 - Unspecified atrial fibrillation Status: Chronic Assessment and Plan: Back in sinus rhythm. Anticoagulate. Continue metoprolol (2) Heart failure with preserved ejection fraction: Code(s): I50.30 - Unspecified diastolic (congestive) heart failure Status: Acute Assessment and Plan: Continue present meds. On diuretics. Nephrology managing diuretics (3) Hypertension: Code(s): I10 - Essential (primary) hypertension Status: Chronic (4) Chronic anticoagulation: Code(s): Z79.01 - [facility] (current) use of anticoagulants Status: Acute Assessment and Plan: On heparin and warfarin. Subjective Date/time seen: 03/26/22 10:14 Interval history: Follow-up visit in this 71-year-old lady with: History of diastolic heart failure and worsening end-stage renal disease with volume overload and CHF. Patient started hemodialysis again a couple of days ago was treated 2 days this week for volume overload. Called by the staff today to see her again because of increasing propensity for atrial fibrillation over the last 24-48 hours. Date of service 03/26/2022: She had burst of arrhythmia overnight which was short lived. Otherwise she is feeling better today. Breathing easier. No chest pain. Review of Systems Review of Systems: All systems reviewed & are unremarkable except as noted in HPI and below Constitutional: Constitutional: Reports fatigue and Reports lethargy Eyes: Eyes: Reports no additional eye complaints ENT: Reports system reviewed and no additional complaints, except as documented Cardiovascular: Cardiovascular: Reports no additional cardiovascular complaints, Denies chest pain and Reports dyspnea on exertion Respiratory: Respiratory: Reports dyspnea on exertion Gastrointestinal: Gastrointestinal: Reports nausea Musculoskeletal: Musculoskeletal: Reports no additional musculoskeletal complaints Integumentary/Breasts: Skin/Breast: Reports system reviewed and no additional complaints, except as docu Neurologic: Reports system reviewed and no additional complaints, except as documented Endocrine: Endocrine: Reports no additional endocrine complaints and Reports fatigue Hematologic/Lymphatic: Hematologic/Lymphatic: Reports no additional hematologic/lymphatic complaints Allergic/Immunologic: Allergic/Immunologic: Reports no additional allergic/immunologic complaints Exam Narrative: Awake alert oriented Const: General: comfortable and no acute distress Other: Obese woman pleasant cooperative head of the bed elevated about 45? no distress HENMT: Mouth: Yes moist mucous membranes Eyes: General: appearance normal, both eyes and all related structures Sclera: sclerae normal Neck: Neck: supple Other: It ability to discern JVD given her body habitus Resp: Effort & Inspection: normal respiratory effort Auscultation: clear to auscultation bilaterally Other: diminished breath sounds at the bases bilaterally Cardio: Rate: regular rate Rhythm: regular rhythm Other: PMI not palpable no murmur no gallop GI: Auscultation: normal bowel sounds Skin: General skin exam: normal color Neuro: Speech: normal speech Sensory Exam: normal sensation Other: Alert and oriented x3 Extrem: Other: 1+ bilateral lower extremity edema Psych: Mental Status: mental status grossly normal Other: Limited due to altered mental status otherwise calm and cooperative Objective Data Vital Signs Vital Signs: Vital Signs - 24 hr 03/25/22 10:20 03/25/22 10:40 03/25/22 11:00 Temperature Pulse Rate 69 65 66 Respiratory Rate Blood Pressure 200/88 H 179/82 H 183/88 H Pulse Oximetry Oxygen Delivery Oxygen Flow Rate 03/25/22 11:20 03/25/22 11:40 03/25/22 11:47 Temperature Pulse Rate 66 64 63 Respiratory Rate Blood Pressure 190/79 H 191
[2022-03-26] MEDS: HEPARIN SOD/D5W 100 UNITS/ML 25,000 UNITS/250 ML BAG 17 UNITS IV CONT (11:06)
[2022-03-26 11:53] LABS: Glucose Point of Care 267 mg/dl (65-105)
[2022-03-26] MEDS: INSULIN ASPART (*BKC) 100 UNITS/ML SUB-Q ×2 (11:53→17:36)
--- NOTE | 2022-03-26 12:10 | P.PNNP_ITS ---
Progress Note: A&P Assessment and Plan (1) MARINA (acute kidney injury): Code(s): N17.9 - Acute kidney failure, unspecified Status: Acute Assessment and Plan: * creatinine up from baseline on admission associated with higher BUN as well * presumably due to escalating diuretic therapy * however, urine output declining despite use of IV diuretics as well * issues with increased lethargy concerning for uremia along with rising BUN with IV diuretic use * how much is RAINA/OHS playing a role? * s/p HD catheter placement (on 03/21/22) * HD yesterday and plan next HD treatment on Sunday * hopefully dialysis is temporary again but I amd concerned as this is her second bout of MARINA/ARF in the last 2 months * follow trend of repeat labs and UOP * suspect she may need outpatient dialysis this time around * follow repeat labs and UOP with holding dialysis * resume diuretics (2) Stage 3b chronic kidney disease: Code(s): N18.32 - Chronic kidney disease, stage 3b Status: Chronic Assessment and Plan: * baseline creatinine runs ~ 1.6 - 2.2mg/dl * likely due to CAD/CHF, vascular disease, diabetes, and age-related change (3) Acute on chronic diastolic heart failure: Code(s): I50.33 - Acute on chronic diastolic (congestive) heart failure Status: Acute Assessment and Plan: * seems exacerbated by limited diuresis/diuretic resistance * was on IV bumex * but limited UOP and rising BUN noted * this has been resumed * continue fluid removal with dialysis * follow daily weights and I/Os * Cardiology recommendations noted (4) Atrial fibrillation: Code(s): I48.91 - Unspecified atrial fibrillation Status: Chronic Assessment and Plan: * Cardiology following * continue rate control strategy with medications * already on anticoagulation (5) Hypertension: Code(s): I10 - Essential (primary) hypertension Status: Chronic Assessment and Plan: * elevated at times * likely precipitated by MARINA and volume overload? * hopefully fluid removal with HD will help to some degree * follow trend of hemodynamics (6) Anemia: Code(s): D64.9 - Anemia, unspecified Status: Acute Assessment and Plan: * likely due to CKD, and acute illness * Epogen with HD * follow H/H (7) Type 2 diabetes mellitus with hyperglycemia: Code(s): E11.65 - Type 2 diabetes mellitus with hyperglycemia Status: Chronic Assessment and Plan: * follow accuchecks * glycemic control Will continue to follow. Subjective Date/time seen: 03/26/22 11:10 Tolerated dialysis treatment yesterday without any issues or problems; overall, she states she is feeling better; breathing/respiratory status seems stable if not improving; LE edema has improved as well; no apparent distress voiced at the time of my visit. Exam Narrative: General: WD/WN in NAD Heart: normal S1 and S2; no rub Lungs: coarse breath sounds and diminished at bases Abdomen: soft, nontender, nondistended, positive bowel sounds Extremities: no cyanosis or clubbing; 1+ edema Skin: no rash Objective Data Vital Signs Vital Signs: Vital Signs Temp Pulse Resp BP Pulse Ox O2 Del Method O2 Flow Rate 03/26/22 09:55 Room Air 03/26/22 08:00 60 03/26/22 08:00 Room Air 11
--- NOTE | 2022-03-26 12:10 | PM.PNNEP ---
Progress Note: A&P Assessment and Plan (1) MARINA (acute kidney injury): Code(s): N17.9 - Acute kidney failure, unspecified Status: Acute Assessment and Plan: creatinine up from baseline on admission associated with higher BUN as well presumably due to escalating diuretic therapy however, urine output declining despite use of IV diuretics as well issues with increased lethargy concerning for uremia along with rising BUN with IV diuretic use how much is RAINA/OHS playing a role? s/p HD catheter placement (on 03/21/22) HD yesterday and plan next HD treatment on Sunday hopefully dialysis is temporary again but I amd concerned as this is her second bout of MARINA/ARF in the last 2 months follow trend of repeat labs and UOP suspect she may need outpatient dialysis this time around follow repeat labs and UOP with holding dialysis resume diuretics (2) Stage 3b chronic kidney disease: Code(s): N18.32 - Chronic kidney disease, stage 3b Status: Chronic Assessment and Plan: baseline creatinine runs ~ 1.6 - 2.2mg/dl likely due to CAD/CHF, vascular disease, diabetes, and age-related change (3) Acute on chronic diastolic heart failure: Code(s): I50.33 - Acute on chronic diastolic (congestive) heart failure Status: Acute Assessment and Plan: seems exacerbated by limited diuresis/diuretic resistance was on IV bumex but limited UOP and rising BUN noted this has been resumed continue fluid removal with dialysis follow daily weights and I/Os Cardiology recommendations noted (4) Atrial fibrillation: Code(s): I48.91 - Unspecified atrial fibrillation Status: Chronic Assessment and Plan: Cardiology following continue rate control strategy with medications already on anticoagulation (5) Hypertension: Code(s): I10 - Essential (primary) hypertension Status: Chronic Assessment and Plan: elevated at times likely precipitated by MARINA and volume overload? hopefully fluid removal with HD will help to some degree follow trend of hemodynamics (6) Anemia: Code(s): D64.9 - Anemia, unspecified Status: Acute Assessment and Plan: likely due to CKD, and acute illness Epogen with HD follow H/H (7) Type 2 diabetes mellitus with hyperglycemia: Code(s): E11.65 - Type 2 diabetes mellitus with hyperglycemia Status: Chronic Assessment and Plan: follow accuchecks glycemic control Will continue to follow. Subjective Date/time seen: 03/26/22 11:10 Tolerated dialysis treatment yesterday without any issues or problems; overall, she states she is feeling better; breathing/respiratory status seems stable if not improving; LE edema has improved as well; no apparent distress voiced at the time of my visit. Exam Narrative: General: WD/WN in NAD Heart: normal S1 and S2; no rub Lungs: coarse breath sounds and diminished at bases Abdomen: soft, nontender, nondistended, positive bowel sounds Extremities: no cyanosis or clubbing; 1+ edema Skin: no rash Objective Data Vital Signs Vital Signs: Vital Signs Temp Pulse Resp BP Pulse Ox O2 Del Method O2 Flow Rate 03/26/22 09:55 Room Air 03/26/22 08:00 60 03/26/22 08:00 Room Air 03/26/22 08:58 55 L 18 03/26/22 08:52 92 Room Air 03/26/22 08:51 52 L 18 03/26/22 08:11 166/67 H 03/26/22 08:11 63 03/26/22 04:00 75 03/26/22 04:15 36.3 C L 67 22 H 156/70 H 94 03/26/22 01:38 72 22 H 03/26/22 01:39 22 H Autopap 03/26/22 01:30 70 22 H 03/26/22 00:00 75 03/25/22 20:00 92 Nasal Cannula 3 03/25/22 20:00 76 03/25/22 23:04 147 H 03/25/22 22:59 147 H 03/25/22 21:30 77 24 H 03/25/22 21:20 76 24 H 03/25/22 20:29 36.7 C 78 21 H 162/80 H 92 03/25/22 15:18 74 18
--- NOTE | 2022-03-26 13:30 | PM.IMPN ---
Progress Note: A&P Assessment and Plan (1) Altered mental status: Code(s): R41.82 - Altered mental status, unspecified Status: Acute Assessment and Plan: suspect this is secondary to uremia despite creatinine numbers being quite moderate, BUN is climbing significantly, GFR unchanged at 14 Back to baseline currently (2) Anemia: Code(s): D64.9 - Anemia, unspecified Status: Acute Assessment and Plan: Appears to be at baseline, does receive Epogen, will defer to Nephrology for further management, no signs of a GI bleed at this time (3) CKD (chronic kidney disease): Code(s): N18.9 - Chronic kidney disease, unspecified Status: Acute Assessment and Plan: chronic kidney disease worsened Recently was on the hospital with MARINA needing dialysis temporarily with renal function back to baseline at the time of discharge without dialysis Kidney function continues to worsen since discharge with low urine output Dialysis catheter placed 03/21/2022 and hemodialysis [id number] (4) DVT (deep venous thrombosis): Code(s): I82.409 - Acute embolism and thrombosis of unspecified deep veins of unspecified lower extremity Status: Acute Assessment and Plan: Heparin drip, hold Xarelto with underlying chronic kidney disease Xarelto is not an option eliquis is expensive. initiated warfarin 03/25/2022 (5) Acute respiratory failure: Code(s): J96.00 - Acute respiratory failure, unspecified whether with hypoxia or hypercapnia Status: Acute Assessment and Plan: Supplemental oxygen as needed, suspect this will improve as pulmonary edema improves (6) Asthma-COPD overlap syndrome: Code(s): J44.9 - Chronic obstructive pulmonary disease, unspecified Status: Acute Assessment and Plan: Hold off on steroids, does not appear to be in acute exacerbation, continue home treatments (7) Hypertension: Code(s): I10 - Essential (primary) hypertension Status: Chronic Assessment and Plan: Stable (8) Acute on chronic diastolic heart failure: Code(s): I50.33 - Acute on chronic diastolic (congestive) heart failure Status: Acute Assessment and Plan: Appreciate cardiology consultation, fluid overload appears to be secondary to kidney disease, management per Nephrology (9) MARINA (acute kidney injury): Code(s): N17.9 - Acute kidney failure, unspecified Status: Acute Assessment and Plan: Appreciate nephrology management, she did need dialysis during her last admission started on dialysis 03/22/2022 may need long-term dialysis await Nephrology input (10) RAINA (obstructive sleep apnea): Code(s): G47.33 - Obstructive sleep apnea (adult) (pediatric) Status: Acute Assessment and Plan: Continue CPAP at night as tolerated (11) Hypothyroidism (acquired): Code(s): E03.9 - Hypothyroidism, unspecified Status: Acute Assessment and Plan: Continue home medication TSH elevated, follow-up outpatient (12) ARACELY (generalized anxiety disorder): Code(s): F41.1 - Generalized anxiety disorder Status: Acute Assessment and Plan: Hold Xanax for now due to altered mental status (13) 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: Code(s): K22.70 - 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 Status: Acute Assessment and Plan: Stable (14) Chronic venous stasis dermatitis: Code(s): I87.2 - Venous insufficiency (chronic) (peripheral) Status: Acute Assessment and Plan: Worsened due to volume overload at this time, monitor (15) UTI (urinary tract infection): Code(s): N39.0 - Urinary tract infection, site not specified Status: Acute Assessment and Plan: UA positive Culture sent Start ceftriaxone wbc count improving Plan hypertension uncontrolled likely due to fluid overload / pulmonary edema. Will reassess after dialysi
--- NOTE | 2022-03-26 16:28 | PC.NURSE ---
Addendum entered by Osmany Jenkins RN 03/26/22 16:33: Pet Stylist can see a series ordered by Dr. Kahtleen for 03/26 at 0430 and 03/27 at 0430 but main lab and gas station operator cannot. Original Note: Called main laboratory as there was no PTT drawn this morning at 0430. Residential Property Manager states they do not see a series ordered for 03/26 or 03/27. Orders to be put in as patients PTT needs to be drawn daily to ensure heparin drip is therapeutic.
[2022-03-26 17:23] LABS: Partial Thromboplastin Time 74.6 SECONDS (22.3-36.8)
[2022-03-26] MEDS: WARFARIN (*PBKC) 5 MG TABLET PO (17:23)
[2022-03-26 17:52] LABS: Glucose Point of Care 310 mg/dl (65-105)
--- NOTE | 2022-03-26 18:25 | PC.NURSE ---
PTT has been drawn and patient is still therapeutic. Due to lab not getting orders for daily timed PTT, new orders have been placed.
[2022-03-26] MEDS: MELATONIN 5 MG TABLET PO (20:17)
[2022-03-26] MEDS: INSULIN GLARGINE (*BKC) 100 UNITS/ML 40 UNITS SUB-Q (20:23)
[2022-03-26 21:06] LABS: Glucose Point of Care 372 mg/dl (65-105)
[2022-03-27] VITALS (20 sets, daily range): BP systolic 144–160; BP diastolic 53–77; PULSE 58–85; RESP 18–24; TEMP 36.4; O2SAT 94–97
[2022-03-27] MEDS: IPRATROPIUM BR 0.02% INH SOLN 0.5 MG/2.5 ML VIAL INHALATION ×4 (01:27→21:35)
[2022-03-27] MEDS: HEPARIN SOD/D5W 100 UNITS/ML 25,000 UNITS/250 ML BAG 17 UNITS IV CONT ×2 (02:01→18:47)
[2022-03-27 05:38] LABS: Basophils Absolute Auto 0.1 K/mm3 (0.0-0.1); Basophils Percent Auto 0.6 % (0.2-1.2); Eosinophils Absolute Auto 0.6 K/mm3 (0-0.3); Eosinophils Percent Auto 3.6 % (0-4.4); Hematocrit 28.6 % (37.0-47.0); Hemoglobin 8.3 g/dL (12.0-15.0); Immature Granulocyte Absolute 0.21 K/mm3 (0.00-0.031); Immature Granulocyte Percent A 1.3 % (0-0.5); Lymphocytes Absolute Auto 2.14 K/mm3 (0.9-3.2); Lymphocytes Percent Auto 13.3 % (18.3-44.2); Mean Corpuscular Hemoglobin 24.6 pg (26-34); Mean Corpuscular Volume 84.9 fl (80-100); Mean Platelet Volume 10.1 fl (7.4-10.4); Monocytes Absolute Auto 1.8 K/mm3 (0.1-0.6); Monocytes Percent Auto 11.1 % (2.6-8.5); Neutrophils Absolute Auto 11.3 K/mm3 (1.3-6.7); Neutrophils Percent Auto 70.1 % (45.5-73.1); Platelet Count Result 288 k/mm3 (150-375); Red Blood Count 3.37 M/mm3 (4.2-5.4); Red Cell Distribution Width 17.5 % (11.5-14.5)
[2022-03-27 05:48] LABS: INR 1.3; Prothrombin Time 15.6 Seconds (11.1-14.7)
[2022-03-27] MEDS: LEVOTHYROXINE SODIUM 25 MCG TABLET PO (05:57)
[2022-03-27] MEDS: LEVOTHYROXINE SODIUM 150 MCG TABLET PO (05:57)
[2022-03-27 06:01] LABS: Hypochromasia 2+ (NORMAL); Platelet Estimate Adequate (Adequate)
[2022-03-27 06:04] LABS: Alanine Aminotransferase 22 U/L (6-35); Albumin Level 3.3 g/dL (3.5-5.1); Alkaline Phosphatase 84 U/L (38-126); Anion Gap 9 mmol/L (8-16); Aspartate Amino Transferase 24 U/L (14-36); Bilirubin,Total 0.5 mg/dL (0.2-1.3); Blood Urea Nitrogen 50 mg/dL (7-17); Calcium 8.5 mg/dL (8.4-10.2); Carbon Dioxide 24 mmol/L (22-30); Chloride 100 mmol/L (98-107); Estimated CRCL calculation 30 ml/min; Estimated Glomerular Filt Rate 24; Glucose 215 mg/dL (65-110); Magnesium 1.8 mg/dL (1.6-2.3); Potassium 3.9 mmol/L (3.4-5.0); Sodium 133 mmol/L (137-145)
[2022-03-27 08:11] LABS: Glucose Point of Care 218 mg/dl (65-105)
[2022-03-27] MEDS: FERROUS SULFATE 324 MG TABLET PO ×2 (08:53→17:16)
[2022-03-27] MEDS: INSULIN ASPART (*BKC) 100 UNITS/ML SUB-Q ×3 (08:54→17:16)
[2022-03-27] MEDS: BUMETANIDE INJ 2.5 MG/10 ML VIAL 2 MG IV PUSH ×2 (08:55→17:16)
[2022-03-27] MEDS: FLUTICASONE PROPIONATE 0.05% NA SPR 16 GM BTL (*BKC) 2 SPRAY NASAL (08:56)
[2022-03-27] MEDS: GABAPENTIN 300 MG CAPSULE PO ×2 (08:57→20:16)
[2022-03-27] MEDS: METOPROLOL SUCCINATE EXT REL 50 MG TABCR PO (08:58)
[2022-03-27] MEDS: MONTELUKAST SODIUM 10 MG TABLET PO (08:58)
[2022-03-27] MEDS: VERAPAMIL HCL 180 MG TABLET ER 360 MG PO (08:58)
[2022-03-27] MEDS: PANTOPRAZOLE SODIUM IV 40 MG VIAL IV PUSH (08:58)
[2022-03-27] MEDS: FLUTICASONE/UMECLIDIN/VILANTER 200-62.5-25 MCG ELLIPTA 1 PUFF INHALATION (10:03)
--- NOTE | 2022-03-27 12:18 | P.PNNP_ITS ---
Progress Note: A&P Assessment and Plan (1) MARINA (acute kidney injury): Code(s): N17.9 - Acute kidney failure, unspecified Status: Acute Assessment and Plan: * creatinine up from baseline on admission associated with higher BUN as well * presumably due to escalating diuretic therapy * however, urine output declining despite use of IV diuretics as well * issues with increased lethargy concerning for uremia along with rising BUN with IV diuretic use * how much is RAINA/OHS playing a role? * s/p HD catheter placement (on 03/21/22) * HD possily tomorrow given AM labs * hopefully dialysis is temporary again but I amd concerned as this is her second bout of MARINA/ARF in the last 2 months * follow trend of repeat labs and UOP * likely to need outpatient dialysis on discharge * follow repeat labs and UOP with holding dialysis * resume diuretics (2) Stage 3b chronic kidney disease: Code(s): N18.32 - Chronic kidney disease, stage 3b Status: Chronic Assessment and Plan: * baseline creatinine runs ~ 1.6 - 2.2mg/dl * likely due to CAD/CHF, vascular disease, diabetes, and age-related change (3) Acute on chronic diastolic heart failure: Code(s): I50.33 - Acute on chronic diastolic (congestive) heart failure Status: Acute Assessment and Plan: * seems exacerbated by limited diuresis/diuretic resistance * was on IV bumex * but limited UOP and rising BUN noted * this has been resumed * continue fluid removal with dialysis * follow daily weights and I/Os * Cardiology recommendations noted (4) Atrial fibrillation: Code(s): I48.91 - Unspecified atrial fibrillation Status: Chronic Assessment and Plan: * Cardiology following * continue rate control strategy with medications * already on anticoagulation (5) Hypertension: Code(s): I10 - Essential (primary) hypertension Status: Chronic Assessment and Plan: * elevated at times * likely precipitated by MARINA and volume overload? * hopefully fluid removal with HD will help to some degree * follow trend of hemodynamics (6) Anemia: Code(s): D64.9 - Anemia, unspecified Status: Acute Assessment and Plan: * likely due to CKD, and acute illness * Epogen with HD * follow H/H (7) Type 2 diabetes mellitus with hyperglycemia: Code(s): E11.65 - Type 2 diabetes mellitus with hyperglycemia Status: Chronic Assessment and Plan: * follow accuchecks * glycemic control Will continue to follow. Subjective Date/time seen: 03/27/22 12:18 Sitting up in chair in no apparent distress; diminished urine output in spite of IV diuretics; no acute issues/events overnight; states she wants to go home at the time of my visit; overall, feels reasonably well with relative stability in respiratory status. Exam Narrative: General: WD/WN in NAD Heart: normal S1 and S2; no rub Lungs: coarse breath sounds and diminished at bases Abdomen: soft, nontender, nondistended, positive bowel sounds Extremities: no cyanosis or clubbing; 1+ edema Skin: no nodules Objective Data Vital Signs Vital Signs: Vital Signs Temp Pulse Resp BP Pulse Ox O2 Del Method O2 Flow Rate 03/27/22 12:00 65 03/27/22 08:40 160/68 H 03/27/22 10:18 85 20 03/27/22 10:05 66 20
--- NOTE | 2022-03-27 12:18 | PM.PNNEP ---
Progress Note: A&P Assessment and Plan (1) MARINA (acute kidney injury): Code(s): N17.9 - Acute kidney failure, unspecified Status: Acute Assessment and Plan: creatinine up from baseline on admission associated with higher BUN as well presumably due to escalating diuretic therapy however, urine output declining despite use of IV diuretics as well issues with increased lethargy concerning for uremia along with rising BUN with IV diuretic use how much is RAINA/OHS playing a role? s/p HD catheter placement (on 03/21/22) HD possily tomorrow given AM labs hopefully dialysis is temporary again but I amd concerned as this is her second bout of MARINA/ARF in the last 2 months follow trend of repeat labs and UOP likely to need outpatient dialysis on discharge follow repeat labs and UOP with holding dialysis resume diuretics (2) Stage 3b chronic kidney disease: Code(s): N18.32 - Chronic kidney disease, stage 3b Status: Chronic Assessment and Plan: baseline creatinine runs ~ 1.6 - 2.2mg/dl likely due to CAD/CHF, vascular disease, diabetes, and age-related change (3) Acute on chronic diastolic heart failure: Code(s): I50.33 - Acute on chronic diastolic (congestive) heart failure Status: Acute Assessment and Plan: seems exacerbated by limited diuresis/diuretic resistance was on IV bumex but limited UOP and rising BUN noted this has been resumed continue fluid removal with dialysis follow daily weights and I/Os Cardiology recommendations noted (4) Atrial fibrillation: Code(s): I48.91 - Unspecified atrial fibrillation Status: Chronic Assessment and Plan: Cardiology following continue rate control strategy with medications already on anticoagulation (5) Hypertension: Code(s): I10 - Essential (primary) hypertension Status: Chronic Assessment and Plan: elevated at times likely precipitated by MARINA and volume overload? hopefully fluid removal with HD will help to some degree follow trend of hemodynamics (6) Anemia: Code(s): D64.9 - Anemia, unspecified Status: Acute Assessment and Plan: likely due to CKD, and acute illness Epogen with HD follow H/H (7) Type 2 diabetes mellitus with hyperglycemia: Code(s): E11.65 - Type 2 diabetes mellitus with hyperglycemia Status: Chronic Assessment and Plan: follow accuchecks glycemic control Will continue to follow. Subjective Date/time seen: 03/27/22 12:18 Sitting up in chair in no apparent distress; diminished urine output in spite of IV diuretics; no acute issues/events overnight; states she wants to go home at the time of my visit; overall, feels reasonably well with relative stability in respiratory status. Exam Narrative: General: WD/WN in NAD Heart: normal S1 and S2; no rub Lungs: coarse breath sounds and diminished at bases Abdomen: soft, nontender, nondistended, positive bowel sounds Extremities: no cyanosis or clubbing; 1+ edema Skin: no nodules Objective Data Vital Signs Vital Signs: Vital Signs Temp Pulse Resp BP Pulse Ox O2 Del Method O2 Flow Rate 03/27/22 12:00 65 03/27/22 08:40 160/68 H 03/27/22 10:18 85 20 03/27/22 10:05 66 20 03/27/22 08:58 60 03/27/22 08:00 63 03/27/22 08:00 97 Nasal Cannula 2 03/27/22 04:00 58 L 03/27/22 04:09 36.4 C 60 18 156/70 H 97 03/27/22 01:34 60 20 03/27/22 01:27 62 18 03/27/22 01:27 62 18 96 Nasal Cannula 1 03/27/22 00:00 62 03/26/22 20:00 70 20 100 Room Air 03/26/22 20:00 64 03/26/22 20:19 70 20 03/26/22 20:07 66 20 03/26/22 19:53 36.3 C L 65 22 H 160/85 H 100 Intake/Output Intake/Output: Intake & Output 03/24/22 03/25/22 03/26/22 03/27/22 23:59 23:59 23:59 23:59 Intake Total 1370 140
[2022-03-27 12:24] LABS: Glucose Point of Care 321 mg/dl (65-105)
--- NOTE | 2022-03-27 12:32 | PM.IMPN ---
Progress Note: A&P Assessment and Plan (1) Altered mental status: Code(s): R41.82 - Altered mental status, unspecified Status: Acute Assessment and Plan: suspect this is secondary to uremia despite creatinine numbers being quite moderate, BUN is climbing significantly, GFR unchanged at 14 Back to baseline currently (2) Anemia: Code(s): D64.9 - Anemia, unspecified Status: Acute Assessment and Plan: Appears to be at baseline, does receive Epogen, will defer to Nephrology for further management, no signs of a GI bleed at this time (3) CKD (chronic kidney disease): Code(s): N18.9 - Chronic kidney disease, unspecified Status: Acute Assessment and Plan: chronic kidney disease worsened Recently was on the hospital with MARINA needing dialysis temporarily with renal function back to baseline at the time of discharge without dialysis Kidney function continues to worsen since discharge with low urine output Dialysis catheter placed 03/21/2022 and hemodialysis [id number] currently on dialysis p.r.n.. May need long-term dialysis Await for the (4) DVT (deep venous thrombosis): Code(s): I82.409 - Acute embolism and thrombosis of unspecified deep veins of unspecified lower extremity Status: Acute Assessment and Plan: Heparin drip, hold Xarelto with underlying chronic kidney disease Xarelto is not an option eliquis is expensive. initiated warfarin 03/25/2022 Will give warfarin 7.5 mg x 1 tonight (5) Acute respiratory failure: Code(s): J96.00 - Acute respiratory failure, unspecified whether with hypoxia or hypercapnia Status: Acute Assessment and Plan: Supplemental oxygen as needed, suspect this will improve as pulmonary edema improves (6) Asthma-COPD overlap syndrome: Code(s): J44.9 - Chronic obstructive pulmonary disease, unspecified Status: Acute Assessment and Plan: Hold off on steroids, does not appear to be in acute exacerbation, continue home treatments (7) Hypertension: Code(s): I10 - Essential (primary) hypertension Status: Chronic Assessment and Plan: Stable (8) Acute on chronic diastolic heart failure: Code(s): I50.33 - Acute on chronic diastolic (congestive) heart failure Status: Acute Assessment and Plan: Appreciate cardiology consultation, fluid overload appears to be secondary to kidney disease, management per Nephrology (9) MARINA (acute kidney injury): Code(s): N17.9 - Acute kidney failure, unspecified Status: Acute Assessment and Plan: Appreciate nephrology management, she did need dialysis during her last admission started on dialysis 03/22/2022 may need long-term dialysis await Nephrology input (10) RAINA (obstructive sleep apnea): Code(s): G47.33 - Obstructive sleep apnea (adult) (pediatric) Status: Acute Assessment and Plan: Continue CPAP at night as tolerated (11) Hypothyroidism (acquired): Code(s): E03.9 - Hypothyroidism, unspecified Status: Acute Assessment and Plan: Continue home medication TSH elevated, follow-up outpatient (12) ARACELY (generalized anxiety disorder): Code(s): F41.1 - Generalized anxiety disorder Status: Acute Assessment and Plan: Hold Xanax for now due to altered mental status (13) 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: Code(s): K22.70 - 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 Status: Acute Assessment and Plan: Stable (14) Chronic venous stasis dermatitis: Code(s): I87.2 - Venous insufficiency (chronic) (peripheral) Status: Acute Assessment and Plan: Worsened due to volume overload at this time, monitor (15) UTI (urinary tract infection): Code(s): N39.0 - Urinary tract infection, site not specified Status: Acute Assessment and Plan: UA positive Culture sent Start ceftriaxone wbc count improvi
[2022-03-27] MEDS: WARFARIN (*PBKC) 7.5 MG TABLET PO (17:16)
[2022-03-27 17:18] LABS: Glucose Point of Care 286 mg/dl (65-105)
[2022-03-27] MEDS: MELATONIN 5 MG TABLET PO (20:16)
[2022-03-27] MEDS: INSULIN GLARGINE (*BKC) 100 UNITS/ML 40 UNITS SUB-Q (20:19)
[2022-03-27 20:41] LABS: Glucose Point of Care 335 mg/dl (65-105)
[2022-03-28] VITALS (32 sets, daily range): BP systolic 100–186; BP diastolic 55–82; PULSE 57–73; RESP 18–22; TEMP 36–36.8; O2SAT 93–99
[2022-03-28] MEDS: IPRATROPIUM BR 0.02% INH SOLN 0.5 MG/2.5 ML VIAL INHALATION ×4 (04:27→21:44)
--- NOTE | 2022-03-28 04:27 | PCRCNOTE ---
Window of time for administration has passed. See next scheduled administration.
[2022-03-28] MEDS: LEVOTHYROXINE SODIUM 25 MCG TABLET PO (05:41)
[2022-03-28] MEDS: LEVOTHYROXINE SODIUM 150 MCG TABLET PO (05:41)
[2022-03-28 05:47] LABS: Alanine Aminotransferase 21 U/L (6-35); Albumin Level 3.3 g/dL (3.5-5.1); Alkaline Phosphatase 83 U/L (38-126); Anion Gap 9 mmol/L (8-16); Aspartate Amino Transferase 19 U/L (14-36); Bilirubin,Total 0.4 mg/dL (0.2-1.3); Blood Urea Nitrogen 58 mg/dL (7-17); Calcium 8.4 mg/dL (8.4-10.2); Carbon Dioxide 24 mmol/L (22-30); Chloride 99 mmol/L (98-107); Estimated CRCL calculation 27 ml/min; Estimated Glomerular Filt Rate 22; Glucose 245 mg/dL (65-110); Magnesium 1.7 mg/dL (1.6-2.3); Sodium 132 mmol/L (137-145)
[2022-03-28 05:51] LABS: INR 1.6; Prothrombin Time 18.2 Seconds (11.1-14.7)
[2022-03-28 05:52] LABS: Basophils Absolute Auto 0.1 K/mm3 (0.0-0.1); Basophils Percent Auto 0.3 % (0.2-1.2); Eosinophils Absolute Auto 0.4 K/mm3 (0-0.3); Eosinophils Percent Auto 1.8 % (0-4.4); Hematocrit 26.1 % (37.0-47.0); Hemoglobin 7.8 g/dL (12.0-15.0); Immature Granulocyte Absolute 0.21 K/mm3 (0.00-0.031); Lymphocytes Absolute Auto 1.46 K/mm3 (0.9-3.2); Lymphocytes Percent Auto 7.2 % (18.3-44.2); Mean Corpuscular HGB Conc 29.9 g/dl (32-36); Mean Corpuscular Hemoglobin 24.6 pg (26-34); Mean Corpuscular Volume 82.3 fl (80-100); Mean Platelet Volume 9.9 fl (7.4-10.4); Monocytes Absolute Auto 1.7 K/mm3 (0.1-0.6); Monocytes Percent Auto 8.3 % (2.6-8.5); Neutrophils Absolute Auto 16.4 K/mm3 (1.3-6.7); Neutrophils Percent Auto 81.4 % (45.5-73.1); Platelet Count Result 316 k/mm3 (150-375); Red Blood Count 3.17 M/mm3 (4.2-5.4); Red Cell Distribution Width 17.4 % (11.5-14.5); White Blood Count 20.2 K/mm3 (4.5-10.0)
[2022-03-28 05:53] LABS: Partial Thromboplastin Time 84.2 SECONDS (22.3-36.8)
[2022-03-28 06:49] LABS: Hypochromasia 2+ (NORMAL); Platelet Estimate Adequate (Adequate)
[2022-03-28 06:50] LABS: Anisocytosis 1+ (NORMAL); Poikilocytosis 1+ (NORMAL); Schistocytes None Seen (NORMAL)
[2022-03-28] MEDS: FLUTICASONE PROPIONATE 0.05% NA SPR 16 GM BTL (*BKC) 2 SPRAY NASAL (08:17)
[2022-03-28] MEDS: METOPROLOL SUCCINATE EXT REL 50 MG TABCR PO (08:17)
[2022-03-28] MEDS: MONTELUKAST SODIUM 10 MG TABLET PO (08:18)
[2022-03-28] MEDS: VERAPAMIL HCL 180 MG TABLET ER 360 MG PO (08:18)
[2022-03-28] MEDS: GABAPENTIN 300 MG CAPSULE PO ×2 (08:18→20:08)
[2022-03-28] MEDS: BUMETANIDE INJ 2.5 MG/10 ML VIAL 2 MG IV PUSH ×2 (08:18→17:16)
[2022-03-28] MEDS: FERROUS SULFATE 324 MG TABLET PO ×2 (08:18→17:16)
[2022-03-28] MEDS: INSULIN ASPART (*BKC) 100 UNITS/ML SUB-Q (08:21)
[2022-03-28] MEDS: PANTOPRAZOLE SODIUM IV 40 MG VIAL IV PUSH (08:22)
[2022-03-28 08:28] LABS: Glucose Point of Care 279 mg/dl (65-105)
[2022-03-28 09:43] LABS: Appearance Urine Cloudy (Clear); Bilirubin Urine Negative (Negative); Blood Urine Trace-lysed (Negative); Color Urine Yellow (Yellow); Glucose Urine UA Negative (Negative); Ketones Urine Negative (Negative); Leukocyte Esterase Ur 2+ LEU/UL (NEGATIVE); Nitrate Urine Negative (Negative); Protein Urine 2+ mg/dL (Negative); Specific Grav Ur 1.025 (1.001-1.035); Urobilinogen Urine 0.2 mg/dL (<2.0)
[2022-03-28 10:12] LABS: Bacteria Urine Trace /hpf; Budding Yeast Urine Present /hpf; Mucus Urine Rare /lpf; RBC Urine 21-50 /hpf (0-2); Squamous Epithelial Cell Urine Moderate /hpf (Few); WBC Clumps Urine Present /HPF; WBC Urine >75 /hpf (0-3)
[2022-03-28 10:20] LABS: Add Urine Microscopic? YES
--- NOTE | 2022-03-28 10:27 | P.PNNP_ITS ---
Progress Note: A&P Assessment and Plan (1) MARINA (acute kidney injury): Code(s): N17.9 - Acute kidney failure, unspecified Status: Acute Assessment and Plan: * creatinine up from baseline on admission associated with higher BUN as well * presumably due to escalating diuretic therapy * however, urine output declining despite use of IV diuretics as well * issues with increased lethargy concerning for uremia along with rising BUN with IV diuretic use * how much is RAINA/OHS playing a role? * s/p HD catheter placement (on 03/21/22) * HD today * hopefully dialysis is temporary again but I am concerned as this is her second bout of MARINA/ARF in the last 2 months * creatinine seems to be stabilizing but BUN climbs inbetween HD treatments * follow trend of repeat labs and UOP * likely to need outpatient dialysis on discharge * follow repeat labs and UOP when holding dialysis * consider checking 24hr urine collection for better assessment of renal function * resumed on diuretics (switch to oral on discharge) (2) Stage 3b chronic kidney disease: Code(s): N18.32 - Chronic kidney disease, stage 3b Status: Chronic Assessment and Plan: * baseline creatinine runs ~ 1.6 - 2.2mg/dl * likely due to CAD/CHF, vascular disease, diabetes, and age-related change (3) Acute on chronic diastolic heart failure: Code(s): I50.33 - Acute on chronic diastolic (congestive) heart failure Status: Acute Assessment and Plan: * seems exacerbated by limited diuresis/diuretic resistance * was on IV bumex * but limited UOP and rising BUN noted * this has been resumed * continue fluid removal with dialysis * follow daily weights and I/Os * Cardiology recommendations noted (4) Atrial fibrillation: Code(s): I48.91 - Unspecified atrial fibrillation Status: Chronic Assessment and Plan: * Cardiology following * continue rate control strategy with medications * on anticoagulation (5) Hypertension: Code(s): I10 - Essential (primary) hypertension Status: Chronic Assessment and Plan: * elevated at times * likely precipitated by MARINA and volume overload? * hopefully fluid removal with HD will help to some degree * follow trend of hemodynamics (6) Anemia: Code(s): D64.9 - Anemia, unspecified Status: Acute Assessment and Plan: * likely due to CKD, and acute illness * Epogen with HD * follow H/H (7) Type 2 diabetes mellitus with hyperglycemia: Code(s): E11.65 - Type 2 diabetes mellitus with hyperglycemia Status: Chronic Assessment and Plan: * follow accuchecks * glycemic control Will continue to follow. Subjective Date/time seen: 03/28/22 10:27 Patient tolerating dialysis treatment at the time of my visit (seen on HD at 10:20AM); no apparent distress noted; breathing/respiratory status as well as mentation seem stable; no other issues/events overnight or earlier this morning. Exam Narrative: General: WD/WN in NAD Heart: normal S1 and S2; no rub Lungs: coarse breath sounds and diminished at bases Abdomen: soft, nontender, nondistended, positive bowel sounds Extremities: no cyanosis or clubbing; 1+ edema Skin: no nodules Objective Data Vital Signs Vital Signs: Vital Signs Temp Pulse Resp BP Pulse Ox O2 Del Method O2 Flow Rate
--- NOTE | 2022-03-28 10:27 | PM.PNNEP ---
Progress Note: A&P Assessment and Plan (1) MARINA (acute kidney injury): Code(s): N17.9 - Acute kidney failure, unspecified Status: Acute Assessment and Plan: creatinine up from baseline on admission associated with higher BUN as well presumably due to escalating diuretic therapy however, urine output declining despite use of IV diuretics as well issues with increased lethargy concerning for uremia along with rising BUN with IV diuretic use how much is RAINA/OHS playing a role? s/p HD catheter placement (on 03/21/22) HD today hopefully dialysis is temporary again but I am concerned as this is her second bout of MARINA/ARF in the last 2 months creatinine seems to be stabilizing but BUN climbs inbetween HD treatments follow trend of repeat labs and UOP likely to need outpatient dialysis on discharge follow repeat labs and UOP when holding dialysis consider checking 24hr urine collection for better assessment of renal function resumed on diuretics (switch to oral on discharge) (2) Stage 3b chronic kidney disease: Code(s): N18.32 - Chronic kidney disease, stage 3b Status: Chronic Assessment and Plan: baseline creatinine runs ~ 1.6 - 2.2mg/dl likely due to CAD/CHF, vascular disease, diabetes, and age-related change (3) Acute on chronic diastolic heart failure: Code(s): I50.33 - Acute on chronic diastolic (congestive) heart failure Status: Acute Assessment and Plan: seems exacerbated by limited diuresis/diuretic resistance was on IV bumex but limited UOP and rising BUN noted this has been resumed continue fluid removal with dialysis follow daily weights and I/Os Cardiology recommendations noted (4) Atrial fibrillation: Code(s): I48.91 - Unspecified atrial fibrillation Status: Chronic Assessment and Plan: Cardiology following continue rate control strategy with medications on anticoagulation (5) Hypertension: Code(s): I10 - Essential (primary) hypertension Status: Chronic Assessment and Plan: elevated at times likely precipitated by MARINA and volume overload? hopefully fluid removal with HD will help to some degree follow trend of hemodynamics (6) Anemia: Code(s): D64.9 - Anemia, unspecified Status: Acute Assessment and Plan: likely due to CKD, and acute illness Epogen with HD follow H/H (7) Type 2 diabetes mellitus with hyperglycemia: Code(s): E11.65 - Type 2 diabetes mellitus with hyperglycemia Status: Chronic Assessment and Plan: follow accuchecks glycemic control Will continue to follow. Subjective Date/time seen: 03/28/22 10:27 Patient tolerating dialysis treatment at the time of my visit (seen on HD at 10:20AM); no apparent distress noted; breathing/respiratory status as well as mentation seem stable; no other issues/events overnight or earlier this morning. Exam Narrative: General: WD/WN in NAD Heart: normal S1 and S2; no rub Lungs: coarse breath sounds and diminished at bases Abdomen: soft, nontender, nondistended, positive bowel sounds Extremities: no cyanosis or clubbing; 1+ edema Skin: no nodules Objective Data Vital Signs Vital Signs: Vital Signs Temp Pulse Resp BP Pulse Ox O2 Del Method O2 Flow Rate 03/28/22 08:00 99 Nasal Cannula 2 03/28/22 08:00 61 03/28/22 08:17 64 03/28/22 04:00 65 03/28/22 04:10 97.6 F 64 18 153/66 H 99 03/28/22 00:00 72 03/27/22 22:55 94 Nasal Cannula 1 03/27/22 21:45 67 20 03/27/22 21:35 72 20 03/27/22 20:00 64 24 H 96 Nasal Cannula 2 03/27/22 20:00 64 03/27/22 19:20 97.6 F 67 24 H 152/77 H 96 03/27/22 16:00 64 03/27/22 14:00 97.6 F 62 18 144/53 H 96 03/27/22 14:24 68 20 03/27/22 14:16 72 20 03/27/22 12:00 65 Intake/Output Intake/
--- NOTE | 2022-03-28 11:05 | PCPTNOTE ---
The patient treatment was not able to be completed on 03/28/2022 due to patient out of room for dialysis. Will plan to continue treatment per plan of care.
[2022-03-28] MEDS: INSULIN ASPART (*BKC) 100 UNITS/ML 15 UNITS SUB-Q ×2 (13:39→17:16)
[2022-03-28] MEDS: HEPARIN SOD/D5W 100 UNITS/ML 25,000 UNITS/250 ML BAG 17 UNITS IV CONT (13:46)
[2022-03-28 14:00] LABS: Glucose Point of Care 151 mg/dl (65-105)
[2022-03-28] MEDS: FLUTICASONE/UMECLIDIN/VILANTER 200-62.5-25 MCG ELLIPTA 1 PUFF INHALATION (15:04)
--- NOTE | 2022-03-28 15:27 | PM.IMPN ---
Progress Note: A&P Assessment and Plan (1) Altered mental status: Code(s): R41.82 - Altered mental status, unspecified Status: Acute Assessment and Plan: suspect this is secondary to uremia despite creatinine numbers being quite moderate, BUN is climbing significantly, GFR unchanged at 14 Back to baseline currently (2) Anemia: Code(s): D64.9 - Anemia, unspecified Status: Acute Assessment and Plan: Appears to be at baseline, does receive Epogen, will defer to Nephrology for further management, no signs of a GI bleed at this time (3) CKD (chronic kidney disease): Code(s): N18.9 - Chronic kidney disease, unspecified Status: Acute Assessment and Plan: chronic kidney disease worsened Recently was on the hospital with MARINA needing dialysis temporarily with renal function back to baseline at the time of discharge without dialysis Kidney function continues to worsen since discharge with low urine output Dialysis catheter placed 03/21/2022 and hemodialysis [id number] currently on dialysis p.r.n.. May need long-term dialysis Await for the Renal function to eventually improved. Still considering acute on chronic renal failure on hemodialysis p.r.n. Plans to continue to keep the dialysis catheter this admission and may dialyze p.r.n. as an outpatient basis (4) DVT (deep venous thrombosis): Code(s): I82.409 - Acute embolism and thrombosis of unspecified deep veins of unspecified lower extremity Status: Acute Assessment and Plan: Heparin drip, hold Xarelto with underlying chronic kidney disease Xarelto is not an option eliquis is expensive. initiated warfarin 03/25/2022 Receive warfarin 7.5 mg x 1 03/27/2022 INR up to 1.6 today Will continue warfarin 5 mg tonight Continue to monitor INR daily transitioning from heparin drip Continue heparin drip until INR at least 2 (5) Acute respiratory failure: Code(s): J96.00 - Acute respiratory failure, unspecified whether with hypoxia or hypercapnia Status: Acute Assessment and Plan: Supplemental oxygen as needed, suspect this will improve as pulmonary edema improves (6) Asthma-COPD overlap syndrome: Code(s): J44.9 - Chronic obstructive pulmonary disease, unspecified Status: Acute Assessment and Plan: Hold off on steroids, does not appear to be in acute exacerbation, continue home treatments (7) Hypertension: Code(s): I10 - Essential (primary) hypertension Status: Chronic Assessment and Plan: Stable (8) Acute on chronic diastolic heart failure: Code(s): I50.33 - Acute on chronic diastolic (congestive) heart failure Status: Acute Assessment and Plan: Appreciate cardiology consultation, fluid overload appears to be secondary to kidney disease, management per Nephrology (9) MARINA (acute kidney injury): Code(s): N17.9 - Acute kidney failure, unspecified Status: Acute Assessment and Plan: Appreciate nephrology management, she did need dialysis during her last admission started on dialysis 03/22/2022 may need long-term dialysis await Nephrology input (10) RAINA (obstructive sleep apnea): Code(s): G47.33 - Obstructive sleep apnea (adult) (pediatric) Status: Acute Assessment and Plan: Continue CPAP at night as tolerated She is scheduled to get a sleep study as an outpatient basis She had been diagnosed in the past but since she did not use her CPAP her machine was taken away. 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
[2022-03-28] MEDS: WARFARIN (*PBKC) 5 MG TABLET PO (17:18)
[2022-03-28 17:32] LABS: Glucose Point of Care 166 mg/dl (65-105)
[2022-03-28] MEDS: MELATONIN 5 MG TABLET PO (20:08)
[2022-03-28] MEDS: INSULIN GLARGINE (*BKC) 100 UNITS/ML 40 UNITS SUB-Q (20:11)
[2022-03-28 20:37] LABS: Glucose Point of Care 199 mg/dl (65-105)
[2022-03-29] VITALS (14 sets, daily range): BP systolic 160; BP diastolic 60; PULSE 64–84; RESP 20–22; TEMP 36.6; O2SAT 91–96
[2022-03-29] MEDS: IPRATROPIUM BR 0.02% INH SOLN 0.5 MG/2.5 ML VIAL INHALATION ×3 (01:55→12:52)
[2022-03-29] MEDS: LEVOTHYROXINE SODIUM 150 MCG TABLET PO (05:38)
[2022-03-29] MEDS: LEVOTHYROXINE SODIUM 25 MCG TABLET PO (05:38)
[2022-03-29 06:00] LABS: Basophils Absolute Auto 0.1 K/mm3 (0.0-0.1); Basophils Percent Auto 0.5 % (0.2-1.2); Eosinophils Absolute Auto 0.5 K/mm3 (0-0.3); Eosinophils Percent Auto 2.6 % (0-4.4); Hematocrit 28.1 % (37.0-47.0); Immature Granulocyte Absolute 0.22 K/mm3 (0.00-0.031); Immature Granulocyte Percent A 1.2 % (0-0.5); Lymphocytes Absolute Auto 2.18 K/mm3 (0.9-3.2); Lymphocytes Percent Auto 12.3 % (18.3-44.2); Mean Corpuscular HGB Conc 28.5 g/dl (32-36); Mean Corpuscular Hemoglobin 24.8 pg (26-34); Monocytes Absolute Auto 2.2 K/mm3 (0.1-0.6); Monocytes Percent Auto 12.3 % (2.6-8.5); Neutrophils Absolute Auto 12.6 K/mm3 (1.3-6.7); Neutrophils Percent Auto 71.1 % (45.5-73.1); Platelet Count Result 290 k/mm3 (150-375); Red Blood Count 3.23 M/mm3 (4.2-5.4); Red Cell Distribution Width 17.7 % (11.5-14.5); White Blood Count 17.7 K/mm3 (4.5-10.0)
[2022-03-29 06:08] LABS: INR 1.9
[2022-03-29 06:27] LABS: Alanine Aminotransferase 19 U/L (6-35); Albumin Level 3.4 g/dL (3.5-5.1); Alkaline Phosphatase 79 U/L (38-126); Anion Gap 9 mmol/L (8-16); Aspartate Amino Transferase 22 U/L (14-36); Bilirubin,Total 0.4 mg/dL (0.2-1.3); Blood Urea Nitrogen 39 mg/dL (7-17); Calcium 8.4 mg/dL (8.4-10.2); Carbon Dioxide 27 mmol/L (22-30); Chloride 102 mmol/L (98-107); Estimated CRCL calculation 31 ml/min; Estimated Glomerular Filt Rate 26; Glucose 89 mg/dL (65-110); Magnesium 1.9 mg/dL (1.6-2.3); Potassium 3.8 mmol/L (3.4-5.0); Sodium 138 mmol/L (137-145)
[2022-03-29 06:44] LABS: Anisocytosis 1+ (NORMAL); Hypochromasia 1+ (NORMAL); Platelet Estimate Adequate (Adequate); Schistocytes None Seen (NORMAL)
[2022-03-29] MEDS: HEPARIN SOD/D5W 100 UNITS/ML 25,000 UNITS/250 ML BAG 17 UNITS IV CONT (07:10)
[2022-03-29] MEDS: FLUTICASONE/UMECLIDIN/VILANTER 200-62.5-25 MCG ELLIPTA 1 PUFF INHALATION (07:31)
[2022-03-29 07:55] LABS: Glucose Point of Care 101 mg/dl (65-105)
[2022-03-29 08:09] LABS: Partial Thromboplastin Time 54.4 SECONDS (22.3-36.8)
[2022-03-29] MEDS: BUMETANIDE INJ 2.5 MG/10 ML VIAL 2 MG IV PUSH (09:02)
[2022-03-29] MEDS: FLUTICASONE PROPIONATE 0.05% NA SPR 16 GM BTL (*BKC) 2 SPRAY NASAL (09:03)
[2022-03-29] MEDS: FERROUS SULFATE 324 MG TABLET PO (09:03)
[2022-03-29] MEDS: GABAPENTIN 300 MG CAPSULE PO (09:03)
[2022-03-29] MEDS: EUCERIN CREAM 120 GM JAR 1 APPLIC TOPICAL (09:04)
[2022-03-29] MEDS: MONTELUKAST SODIUM 10 MG TABLET PO (09:04)
[2022-03-29] MEDS: VERAPAMIL HCL 180 MG TABLET ER 360 MG PO (09:04)
[2022-03-29] MEDS: METOPROLOL SUCCINATE EXT REL 50 MG TABCR PO (09:04)
[2022-03-29] MEDS: INSULIN ASPART (*BKC) 100 UNITS/ML 15 UNITS SUB-Q ×2 (09:39→12:49)
[2022-03-29] MEDS: PANTOPRAZOLE 40 MG TABLET PO (09:56)
[2022-03-29 12:27] LABS: Glucose Point of Care 134 mg/dl (65-105)
--- NOTE | 2022-03-29 12:35 | PM.PNNEP ---
Progress Note: A&P Assessment and Plan (1) MARINA (acute kidney injury): Code(s): N17.9 - Acute kidney failure, unspecified Status: Acute Assessment and Plan: creatinine up from baseline on admission associated with higher BUN as well presumably due to escalating diuretic therapy however, urine output declining despite use of IV diuretics as well issues with increased lethargy concerning for uremia along with rising BUN with IV diuretic use how much is RAINA/OHS playing a role? s/p HD catheter placement (on 03/21/22) plan next HD on Sunday (here or at outpatient clinic) hopefully dialysis is temporary again but I am concerned as this is her second bout of MARINA/ARF in the last 2 months creatinine seems to be stabilizing but BUN climbs in-between HD treatments follow trend of repeat labs and UOP likely to need outpatient dialysis on discharge follow repeat labs and UOP when holding dialysis consider checking 24hr urine collection for better assessment of renal function resumed on diuretics (switch to oral on discharge) (2) Stage 3b chronic kidney disease: Code(s): N18.32 - Chronic kidney disease, stage 3b Status: Chronic Assessment and Plan: baseline creatinine runs ~ 1.6 - 2.2mg/dl likely due to CAD/CHF, vascular disease, diabetes, and age-related change (3) Acute on chronic diastolic heart failure: Code(s): I50.33 - Acute on chronic diastolic (congestive) heart failure Status: Acute Assessment and Plan: seems exacerbated by limited diuresis/diuretic resistance was on IV bumex but limited UOP and rising BUN noted this has been resumed continue fluid removal with dialysis follow daily weights and I/Os Cardiology recommendations noted (4) Atrial fibrillation: Code(s): I48.91 - Unspecified atrial fibrillation Status: Chronic Assessment and Plan: Cardiology following continue rate control strategy with medications on anticoagulation (5) Hypertension: Code(s): I10 - Essential (primary) hypertension Status: Chronic Assessment and Plan: elevated at times likely precipitated by MARINA and volume overload? hopefully fluid removal with HD will help to some degree follow trend of hemodynamics (6) Anemia: Code(s): D64.9 - Anemia, unspecified Status: Acute Assessment and Plan: likely due to CKD, and acute illness Epogen with HD follow H/H (7) Type 2 diabetes mellitus with hyperglycemia: Code(s): E11.65 - Type 2 diabetes mellitus with hyperglycemia Status: Chronic Assessment and Plan: follow accuchecks glycemic control Not opposed to discharge from renal perspective if otherwise medically stable and outpatient arrangements for hemodialysis are finalized. Will continue to follow. Subjective Date/time seen: 03/29/22 12:35 Tolerated dialysis treatment yesterday without any issue or problems; breathing/respiratory status appears relatively stable at this time; no apparent distress noted; possible discharge today from what she tells me. Exam Narrative: General: WD/WN in NAD Heart: normal S1 and S2; no rub Lungs: coarse breath sounds and diminished at bases Abdomen: soft, nontender, nondistended, positive bowel sounds Extremities: no cyanosis or clubbing; 1+ edema Skin: no nodules Objective Data Vital Signs Vital Signs: Vital Signs Temp Pulse Resp BP Pulse Ox O2 Del Method O2 Flow Rate 03/29/22 12:35 66 20 03/29/22 12:00 68 03/29/22 09:04 70 03/29/22 08:00 65 03/29/22 08:00 94 Nasal Cannula 2 03/29/22 07:41 65 20 03/29/22 07:35 68 20 94 Nasal Cannula 2 03/29/22 07:31 64 20 03/29/22 04:00 76 03/29/22 04:07 97.9 F 70 22 H 160/60 H 96 03/29/22 02:04 66 20 03/29/22 01:55 68 20 03/29/22 00:00 68 03/28/22 21:57 67 20
--- NOTE | 2022-03-29 12:35 | P.PNNP_ITS ---
Progress Note: A&P Assessment and Plan (1) MARINA (acute kidney injury): Code(s): N17.9 - Acute kidney failure, unspecified Status: Acute Assessment and Plan: * creatinine up from baseline on admission associated with higher BUN as well * presumably due to escalating diuretic therapy * however, urine output declining despite use of IV diuretics as well * issues with increased lethargy concerning for uremia along with rising BUN with IV diuretic use * how much is RAINA/OHS playing a role? * s/p HD catheter placement (on 03/21/22) * plan next HD on Sunday (here or at outpatient clinic) * hopefully dialysis is temporary again but I am concerned as this is her second bout of MARINA/ARF in the last 2 months * creatinine seems to be stabilizing but BUN climbs in-between HD treatments * follow trend of repeat labs and UOP * likely to need outpatient dialysis on discharge * follow repeat labs and UOP when holding dialysis * consider checking 24hr urine collection for better assessment of renal function * resumed on diuretics (switch to oral on discharge) (2) Stage 3b chronic kidney disease: Code(s): N18.32 - Chronic kidney disease, stage 3b Status: Chronic Assessment and Plan: * baseline creatinine runs ~ 1.6 - 2.2mg/dl * likely due to CAD/CHF, vascular disease, diabetes, and age-related change (3) Acute on chronic diastolic heart failure: Code(s): I50.33 - Acute on chronic diastolic (congestive) heart failure Status: Acute Assessment and Plan: * seems exacerbated by limited diuresis/diuretic resistance * was on IV bumex * but limited UOP and rising BUN noted * this has been resumed * continue fluid removal with dialysis * follow daily weights and I/Os * Cardiology recommendations noted (4) Atrial fibrillation: Code(s): I48.91 - Unspecified atrial fibrillation Status: Chronic Assessment and Plan: * Cardiology following * continue rate control strategy with medications * on anticoagulation (5) Hypertension: Code(s): I10 - Essential (primary) hypertension Status: Chronic Assessment and Plan: * elevated at times * likely precipitated by MARINA and volume overload? * hopefully fluid removal with HD will help to some degree * follow trend of hemodynamics (6) Anemia: Code(s): D64.9 - Anemia, unspecified Status: Acute Assessment and Plan: * likely due to CKD, and acute illness * Epogen with HD * follow H/H (7) Type 2 diabetes mellitus with hyperglycemia: Code(s): E11.65 - Type 2 diabetes mellitus with hyperglycemia Status: Chronic Assessment and Plan: * follow accuchecks * glycemic control Not opposed to discharge from renal perspective if otherwise medically stable and outpatient arrangements for hemodialysis are finalized. Will continue to follow. Subjective Date/time seen: 03/29/22 12:35 Tolerated dialysis treatment yesterday without any issue or problems; breathing/respiratory status appears relatively stable at this time; no apparent distress noted; possible discharge today from what she tells me. Exam Narrative: General: WD/WN in NAD Heart: normal S1 and S2; no rub Lungs: coarse breath sounds and diminished at bases Abdomen: soft, nontender, nondistended, positive bowel sounds Extremities: no cyanosis or clubbing; 1+ edema Skin: no nodules Objective Data Vital Signs Vital Signs:
--- NOTE | 2022-03-29 12:53 | PM.DS ---
DS: Admitting Diagnosis Discharge Date 03/29/2022 Admitting Diagnosis shortness of breath DS: Discharge Diagnosis Discharge Diagnosis (1) Altered mental status: Code(s): R41.82 - Altered mental status, unspecified Status: Acute Assessment and Plan: suspect this is secondary to uremia despite creatinine numbers being quite moderate, BUN is climbing significantly, GFR unchanged at 14 Back to baseline currently (2) Anemia: Code(s): D64.9 - Anemia, unspecified Status: Acute Assessment and Plan: Appears to be at baseline, does receive Epogen, will defer to Nephrology for further management, no signs of a GI bleed at this time (3) CKD (chronic kidney disease): Code(s): N18.9 - Chronic kidney disease, unspecified Status: Acute Assessment and Plan: chronic kidney disease worsened Recently was on the hospital with MARINA needing dialysis temporarily with renal function back to baseline at the time of discharge without dialysis Kidney function continues to worsen since discharge with low urine output Dialysis catheter placed 03/21/2022 and hemodialysis [id number] currently on dialysis p.r.n.. May need long-term dialysis Await for the Renal function to eventually improved. Still considering acute on chronic renal failure on hemodialysis p.r.n. Plans to continue to keep the dialysis catheter this admission and may dialyze p.r.n. as an outpatient basis (4) DVT (deep venous thrombosis): Code(s): I82.409 - Acute embolism and thrombosis of unspecified deep veins of unspecified lower extremity Status: Acute Assessment and Plan: Heparin drip, hold Xarelto with underlying chronic kidney disease Xarelto is not an option eliquis is expensive. initiated warfarin 03/25/2022 Receive warfarin 7.5 mg x 1 03/27/2022 INR up to 1.6 today Will continue warfarin 5 mg tonight Continue to monitor INR daily transitioning from heparin drip Continue heparin drip until INR at least 2 (5) Acute respiratory failure: Code(s): J96.00 - Acute respiratory failure, unspecified whether with hypoxia or hypercapnia Status: Acute Assessment and Plan: Supplemental oxygen as needed, suspect this will improve as pulmonary edema improves (6) Asthma-COPD overlap syndrome: Code(s): J44.9 - Chronic obstructive pulmonary disease, unspecified Status: Acute Assessment and Plan: Hold off on steroids, does not appear to be in acute exacerbation, continue home treatments (7) Hypertension: Code(s): I10 - Essential (primary) hypertension Status: Chronic Assessment and Plan: Stable (8) Acute on chronic diastolic heart failure: Code(s): I50.33 - Acute on chronic diastolic (congestive) heart failure Status: Acute Assessment and Plan: Appreciate cardiology consultation, fluid overload appears to be secondary to kidney disease, management per Nephrology (9) MARINA (acute kidney injury): Code(s): N17.9 - Acute kidney failure, unspecified Status: Acute Assessment and Plan: Appreciate nephrology management, she did need dialysis during her last admission started on dialysis 03/22/2022 may need long-term dialysis await Nephrology input (10) RAINA (obstructive sleep apnea): Code(s): G47.33 - Obstructive sleep apnea (adult) (pediatric) Status: Acute Assessment and Plan: Continue CPAP at night as tolerated She is scheduled to get a sleep study as an outpatient basis She had been diagnosed in the past but since she did not use her CPAP her machine was taken away. (11) Hypothyroidism (acquired): Code(s): E03.9 - Hypothyroidism, unspecified Status: Acute Assessment and Plan: Continue home medication TSH elevated, follow-up outpatient (12) ARACELY (generalized anxiety disorder): Code(s): F41.1 - Generalized anxiety disorder Status: Acute Assessment and Plan:
--- NOTE | 2022-03-29 13:31 | HOMEO2EVAL ---
Evaluation was performed at [facility] Home Oxygen Evaluation RC: Home Oxygen (O2) Evaluation Start: 03/29/22 07:30 Freq: ONCE Status: Active Protocol: RPE Activity Type Activity Date Activity User E-sign Co-sign Detail Recorded Client Recorded Date Recorded By Document 03/29/22 12:50 [facility] [email or web address] 03/29/22 13:31 [facility] Document 03/29/22 12:55 [facility] [email or web address] 03/29/22 13:31 [facility] Document 03/29/22 13:15 [facility] [email or web address] 03/29/22 13:31 [facility] 03/29/22 03/29/22 03/29/22 12:50 12:55 13:15 Home O2 Evaluation [Oxygen] -Test Phase Resting Exercise Resting -Oxygen Delivery Room Air Room Air Room Air [Pulse Oximetry] -Pulse Oximetry (90-100 %) 94 91 93 [Pulse Rate] -Pulse Rate (60-100 beats/min) 66 84 70 [Exercise] -Ambulation Distance (feet) 200 -Ambulation Distance (meters) 60.95 [Comments] -Home Oxygen Evaluation Comments Patient does not require Home O2 at this time. [Charges] -Treatment Charges O2 Evaluation - Inpatient
--- NOTE | 2022-03-29 13:32 | PCRCNOTE ---
Home O2 eval complete. Patient does not require Home O2 at this time. RN notified.
== END 2022-03-29 14:15 | disposition home health service (06) | DRG 673 ==
LOC: ANHED 02:38 → ANH3MED 05:21
PROVIDERS: Internal Medicine; Internal Medicine Nephrology; Student in an Organized Health Care Education/Training Program; Surgery; Admitting Provider Internal Medicine; Emergency Provider Emergency Medicine; PCP Family Medicine; Visit Provider Family Medicine
PROC: 0JH63XZ Insertion of Tunneled Vascular Access Device into Chest Subcutaneous Tissue and Fascia, Percutaneous Approach (ICD-10-PCS; CPT 36908; principal; 2022-03-21 18:00)
DX: N17.9 Acute kidney failure, unspecified (principal); I50.33 Acute on chronic diastolic (congestive) heart failure; J96.01 Acute respiratory failure with hypoxia; I13.0 Hypertensive heart and chronic kidney disease with heart failure and stage 1 through stage 4 chronic kidney disease, or unspecified chronic kidney disease; Z68.42 Body mass index [BMI] 45.0-49.9, adult; N39.0 Urinary tract infection, site not specified; I82.412 Acute embolism and thrombosis of left femoral vein; I82.4Z2 Acute embolism and thrombosis of unspecified deep veins of left distal lower extremity; I48.91 Unspecified atrial fibrillation; R41.82 Altered mental status, unspecified; E66.01 Morbid (severe) obesity due to excess calories; E11.22 Type 2 diabetes mellitus with diabetic chronic kidney disease; N18.32 Chronic kidney disease, stage 3b; E11.65 Type 2 diabetes mellitus with hyperglycemia; E11.42 Type 2 diabetes mellitus with diabetic polyneuropathy; D63.1 Anemia in chronic kidney disease; I25.10 Atherosclerotic heart disease of native coronary artery without angina pectoris; E03.9 Hypothyroidism, unspecified; J44.9 Chronic obstructive pulmonary disease, unspecified; G47.33 Obstructive sleep apnea (adult) (pediatric); F41.1 Generalized anxiety disorder; I87.2 Venous insufficiency (chronic) (peripheral); K22.70 Barrett's esophagus without dysplasia; K21.9 Gastro-esophageal reflux disease without esophagitis; Z20.822 Contact with and (suspected) exposure to COVID-19; Z79.01 Long term (current) use of anticoagulants; Z79.4 Long term (current) use of insulin; Z79.899 Other long term (current) drug therapy; Z86.73 Personal history of transient ischemic attack (TIA), and cerebral infarction without residual deficits; Z87.891 Personal history of nicotine dependence; Z91.81 History of falling; Z99.81 Dependence on supplemental oxygen
CPT/HCPCS: 36415; 36600; 70450; 71045; 77001; 80053; 80074; 81001; 81003; 82550; 82805; 82948; 83036; 83735; 83880; 84443; 85025; 85610; 85730; 86704; 86706; 87040; 87086; 87340; 87636; 93005; 94618; 94640; 94660; 97110; 97162; 97166; 97530; 97535; 99285; A9270; C1750; C9113; G0257; J0690; J0696; J1170; J1644; J1815; J1940; J2250; J2405; J2550; J2704; J3010; J7030; J7040; Q5105

== ENCOUNTER 2022-03-31 00:05 | Inpatient (IN) | payer MEDICARE, SELFPAY ==
[2022-03-31] VITALS (32 sets, daily range): BP systolic 147–180; BP diastolic 63–110; PULSE 56–114; RESP 14–30; TEMP 36.5–36.9; O2SAT 96–100; BMI 44.0; BMI 44.1
--- NOTE | ~2022-03-31 | XR_ITS ---
[id number] 04/04/2022 15:39 Indication: Bilateral pleural effusions. Postthoracentesis. Procedure: AP portable chest Comparison: 04/04/2022 and Findings: Endotracheal tube tip 1.8 cm above the domonique. NG tube in the stomach. Persistent diffuse b ilateral airspace disease. Bilateral pleural effusions are present. No pneumothorax identified. Large bore central venous catheter tip in the right atrium. Impression: 1: Diffuse bilateral airspace disease which may represent edema and/or pneumonia. 2: Bilateral pleural effusions. No pneumothorax identified post thoracentesis. Reviewed, dictated and finalized at location A. WRAPPER Impression: 1: Diffuse bilateral airspace disease which may represent edema and/or pneumoni a. 2: Bilateral pleural effusions. No pneumothorax identified post thoracentesis.
--- NOTE | ~2022-03-31 | XR_ITS ---
XR chest 1V portable 04/09/2022 06:38 Indication: Acute respiratory failure Procedure: AP portable chest Comparison: Comparison to multiple prior studies sequentially, with oldest reviewed study dated 03/09. Findings: Large bore central venous catheter tip in the right atrium. Heart size normal. Unchanged di ffuse bilateral airspace disease. Small left effusion. No pneumothorax. Endotracheal tube tip 4.3 cm above the domonique. Impression: 1: Unchanged diffuse bilateral airspace disease which may represent edema or pneumonia. 2: Small left pleural effusion. Reviewed, dictated and finalized at location A. LEDGE ENGINEER Impression: 1: Unchanged diffuse bilateral airspace disease which may represent edema or pn eumonia. 2: Small left pleural effusion.
--- NOTE | ~2022-03-31 | XR_ITS ---
EXAMINATION: XR chest 1V portable DATE: 04/11/2022 05:58 INDICATION: Respiratory failure TECHNIQUE: frontal view of the chest was obtained. COMPARISON: Chest radiograph dated 04/10/2022 FINDINGS: Endotracheal tube tip 2.8 cm above the domonique. Large-bore dual-lumen right internal jugular central v enous catheter with distal tip in the right atrium. Nasogastric tube extends below the left hemidiap hragm with distal tip collimated off the study. Decreased now tiny bilateral pleural effusions with blunting at the costophrenic angles. Mild increas ed interstitial pattern along with streaky/linear opacities in the right mid and lower and left lower lung zones and favor combination mild pulmonary edema and atelectasis over pneumonia. No pneumothora x. The cardiomediastinal silhouette is normal. Mitral annular calcification. IMPRESSION: 1. Mild opacities in the bilateral mid and lower lung zones likely combination of mild pulmonary linda a and discoid atelectasis although differential includes pneumonia. 2. Decreased tiny bilateral pleural effusions. Reviewed, dictated and finalized at location A. TEGIC ACCOUNTS MANAGER IMPRESSION: 1. Mild opacities in the bilateral mid and lower lung zones likely combination of mild pulmonary edema and discoid atelectasis although differential includes pneumonia. 2. Decreased tiny bilateral pleural effusions.
--- NOTE | ~2022-03-31 | XR_ITS ---
EXAMINATION: XR chest 1V portable DATE: 04/03/2022 05:40 INDICATION: Intubation. TECHNIQUE: A single frontal view of the chest was obtained. COMPARISON: Chest single view 04/02/2022, chest CT 04/02/2022 FINDINGS: There are moderate-sized pleural effusions. There are airspace opacities in all lung zones bilaterally with a perihilar and lower lung predominance. No pneumothorax. There is enlargement of th e cardiac silhouette. The endotracheal tube tip is 2.5 cm above the domonique. The nasogastric tube tip is in the stomach. A right internal jugular central venous catheter is seen with tip in the right atr ium. IMPRESSION: 1. Stable moderate-sized pleural effusions. 2. Diffuse lung disease with slight improvement, consistent with pulmonary edema and atelectasis with out or with superimposed pneumonia. 3. Enlargement of the cardiac silhouette, likely a combination of cardiomegaly and pericardial effusi on. Reviewed, dictated and finalized at location A. NG PRESSMAN IMPRESSION: 1. Stable moderate-sized pleural effusions. 2. Diffuse lung disease with slight improvement, consistent with pulmonary linda a and atelectasis without or with superimposed pneumonia. 3. Enlargement of the cardiac silhouette, likely a combination of cardiomegaly and pericardial effusion.
--- NOTE | ~2022-03-31 | US_ITS ---
EXAMINATION: US thoracentesis DATE: 04/04/2022 15:26 INDICATION: pleural effusion TECHNIQUE: The procedure and its risks, benefits, and alternatives were discussed with the patient's daughter. Potential risks discussed included bleeding, infection, and pneumothorax. She understood th e risks and agreed to proceed. The skin was prepped and draped in sterile fashion. 1% lidocaine was u sed for local anesthesia. Under ultrasound guidance, a 5 Fr catheter with trochar was advanced into t he left pleural effusion. Fluid was aspirated. The catheter was removed, and a dressing was applied. There were no immediate complications. FINDINGS: Ultrasound images demonstrate a left pleural effusion and the catheter within the fluid. IMPRESSION: 1. Successful ultrasound-guided thoracentesis yielding 1000 mL of serosanguineous fluid. Reviewed, dictated and finalized at location A. CRAFT ARTIST IMPRESSION: 1. Successful ultrasound-guided thoracentesis yielding 1000 mL of serosanguine ous fluid.
--- NOTE | ~2022-03-31 | CT_ITS ---
EXAMINATION: CT chest abdomen pelvis wo con DATE: 04/02/2022 21:29 INDICATION: Confusion. Lethargy. TECHNIQUE: Computed tomography (CT) of the chest, abdomen, and pelvis was performed without intraveno us contrast. Automated exposure control and iterative reconstruction technique were employed. The dos e-length product was 1903.95 mGy-cm. COMPARISON: CT abdomen and pelvis 02/25/2022 FINDINGS: CHEST CT: There are airspace opacities bilaterally with a dependent predominance, consistent with atelectasis. There are moderate-sized pleural effusions. There is left atrial enlargement of the heart. There is a moderate-sized pericardial effusion. There are coronary artery calcifications. The endotracheal tube tip is in expected position above the domonique. A right internal jugular central venous catheter is se en with tip in the right atrium. The nasogastric tube tip is in the stomach. There are changes of lef t hemithyroidectomy. There is moderate thoracic spondylosis. ABDOMEN/PELVIS CT: The liver is normal. There are changes of cholecystectomy. The spleen, pancreas, adrenal glands, and kidneys are normal. There is diverticulosis of the colon without evidence of diverticulitis. There ar e no dilated loops of bowel. The appendix is not visualized. There is mild periportal, aortocaval, le ft para-aortic, left external iliac, and bilateral inguinal lymphadenopathy. For example, a right ing uinal lymph node measures 2.4 x 2.1 cm. Body wall edema is noted. There is sclerosis in left parasymp hyseal pubis with cortical and trabecular thickening, likely Paget disease. There is severe lumbar sp ondylosis. IMPRESSION: 1. Worsened moderate-sized pleural effusions. 2. Moderate-sized pericardial effusion, new from 02/25/2022. 3. Mild pelvic and abdominal lymphadenopathy, which may be reactive. Reviewed, dictated and finalized at location A. ER HELPER
--- NOTE | ~2022-03-31 | XR_ITS ---
[id number]_[id number] 04/05/2022 16:39 Indication: Right pleural effusion postthoracentesis Procedure: AP portable chest Comparison: 04/04/2022 Findings: Endotracheal tube tip is 3.7 cm above the domonique. NG tube in the stomach. Large bore centra l venous catheter tip in the right atrium. Cardiomegaly. There is diffuse bilateral airspace disease, most likely edema. Small pleural effusions. No pneumothorax identified. Impression: 1: Cardiomegaly with pulmonary edema. Cannot exclude superimposed pneumonia. 2: Small pleural effusions. Reviewed, dictated and finalized at location A. E RIGGER Impression: 1: Cardiomegaly with pulmonary edema. Cannot exclude superimposed pneumonia. 2: Small pleural effusions.
--- NOTE | ~2022-03-31 | XR_ITS ---
EXAMINATION: XR chest 1V portable DATE: 04/15/2022 06:22 INDICATION: Respiratory failure TECHNIQUE: frontal view of the chest was obtained. COMPARISON: Chest radiograph dated 04/14/2022 FINDINGS: Endotracheal tube tip 2.5 cm above the domonique. Nasogastric tube extends below the left hemidiaphragm with distal tip collimated off the study. Large-bore dual-lumen right internal jugular central venou s catheter with distal tip in the caudal right atrium. Persistent bilateral patchy and linear airspace opacity in the bilateral mid and lower lung zones. Dahl btle increasing perihilar interstitial pattern suggesting mild pulmonary edema. Small left pleural ef fusion with blunting at costophrenic angle. No pneumothorax. Heart size is normal. IMPRESSION: 1. Persistent airspace opacities in the mid and lower lung zones which could represent atelectasis an d/or pneumonia. 2. Likely developing mild pulmonary edema. 3. Unchanged small left pleural effusion. Reviewed, dictated and finalized at location A. MACY CASHIER IMPRESSION: 1. Persistent airspace opacities in the mid and lower lung zones which could re present atelectasis and/or pneumonia. 2. Likely developing mild pulmonary edema. 3. Unchanged small left pleural effusion.
--- NOTE | ~2022-03-31 | XR_ITS ---
EXAMINATION: XR chest 1V portable DATE: 04/19/2022 06:20 INDICATION: Respiratory failure. TECHNIQUE: A single frontal view of the chest was obtained. COMPARISON: Chest single view 04/18/2022, chest CT 04/12/2022 FINDINGS: There are airspace opacities in the perihilar regions and left lung base. There is a small left pleural effusion. No pneumothorax. The heart size is normal. The endotracheal tube tip is 3.8 cm above the domonique. A right internal jugular central venous catheter is seen with tip in the right atr ium. IMPRESSION: 1. Stable airspace opacities in the perihilar regions and left lung base, consistent with pulmonary e bell versus pneumonia. 2. Stable small left pleural effusion. Reviewed, dictated and finalized at location A. NG ASSEMBLER IMPRESSION: 1. Stable airspace opacities in the perihilar regions and left lung base, consi stent with pulmonary edema versus pneumonia. 2. Stable small left pleural effusion.
--- NOTE | ~2022-03-31 | XR_ITS ---
EXAMINATION: XR chest 1V portable DATE: 04/21/2022 06:28 INDICATION: Respiratory failure. TECHNIQUE: A single frontal view of the chest was obtained. COMPARISON: Chest single view 04/20/2022 FINDINGS: There are airspace opacities in all lung zones bilaterally. There is a small left pleural e ffusion. No pneumothorax. The heart size is normal. There is a tracheostomy tube in expected position . A right internal jugular central venous catheter is seen with tip at the inferior cavoatrial juncti on. IMPRESSION: 1. Stable diffuse lung disease, consistent with pulmonary edema versus pneumonia versus acute respira tory distress syndrome (ARDS). 2. Stable small left pleural effusion. Reviewed, dictated and finalized at location A. FINISHER IMPRESSION: 1. Stable diffuse lung disease, consistent with pulmonary edema versus pneumoni a versus acute respiratory distress syndrome (ARDS). 2. Stable small left pleural effusion.
--- NOTE | ~2022-03-31 | XR_ITS ---
EXAMINATION: XR chest 1V portable Exam Date/Time: 04/02/2022 14:25 ESCALATOR MECHANIC HISTORY: AMS Comparison: 03/31/2022. RESULT: Lines, tubes, and devices: Right IJ dialysis catheter terminates in the right atrium. Lungs and pleura: Increasing diffuse reticular and groundglass opacities, with slightly increased ai rspace opacities in the bilateral lung bases. Stable moderate left and mild right angle blunting. Cardiomediastinal silhouette: Partially obscured, stable. Other: No acute osseous or upper abdominal finding. IMPRESSION: Worsening pulmonary edema and adjacent atelectasis. Infection not excluded. Moderate left and small r ight pleural effusions. Reviewed, dictated and finalized at location K. LATOR MECHANIC IMPRESSION: Worsening pulmonary edema and adjacent atelectasis. Infection not excluded. Mod erate left and small right pleural effusions.
--- NOTE | ~2022-03-31 | XR_ITS ---
EXAMINATION: XR chest 1V portable DATE: 04/07/2022 06:10 INDICATION: Intubation. TECHNIQUE: A single frontal view of the chest was obtained. COMPARISON: Chest single view 04/06/2022, chest CT 04/02/2022 FINDINGS: There are small pleural effusions. There are airspace opacities in all lung zones bilateral ly with a perihilar and basilar predominance. No pneumothorax. The heart size is normal. The endotrac heal tube tip is 2.6 cm above the domonique. The nasogastric tube tip is beyond the inferior margin of t he radiograph, but at least to the stomach. A right internal jugular central venous catheter is seen with tip in the right atrium. IMPRESSION: 1. Stable small pleural effusions. 2. Diffuse lung disease with worsening in right upper lobe, consistent with pneumonia versus pulmonar y edema. Reviewed, dictated and finalized at location A. RITY INSTALLATION TECHNICIAN IMPRESSION: 1. Stable small pleural effusions. 2. Diffuse lung disease with worsening in right upper lobe, consistent with pne umonia versus pulmonary edema.
--- NOTE | ~2022-03-31 | XR_ITS ---
EXAMINATION: XR chest 1V portable DATE: 04/04/2022 05:46 INDICATION: Intubation. TECHNIQUE: A single frontal view of the chest was obtained. COMPARISON: Chest single view 04/03/2022 FINDINGS: There are airspace opacities in all lung zones bilaterally. There are moderate-sized pleura l effusions. No pneumothorax. There is enlargement of the cardiac silhouette. The endotracheal tube t ip is 1.4 cm above the domonique. A right internal jugular central venous catheter is seen with tip in t he right atrium. The nasogastric tube is not well visualized in the lower chest. IMPRESSION: 1. Worsened diffuse lung disease, consistent with pulmonary edema versus pneumonia. 2. Stable moderate-sized pleural effusions. 3. Enlargement of the cardiac silhouette, likely a combination of cardiomegaly and pericardial effusi on. Reviewed, dictated and finalized at location A. T RELATIONS ASSOCIATE IMPRESSION: 1. Worsened diffuse lung disease, consistent with pulmonary edema versus pneumo patrice. 2. Stable moderate-sized pleural effusions. 3. Enlargement of the cardiac silhouette, likely a combination of cardiomegaly and pericardial effusion.
--- NOTE | ~2022-03-31 | XR_ITS ---
EXAMINATION: XR chest 1V portable DATE: 04/18/2022 05:48 INDICATION: Respiratory failure. TECHNIQUE: A single frontal view of the chest was obtained. COMPARISON: Chest single view 04/17/2022, chest CT 04/12/2022 FINDINGS: The patient is rotated to her right. There are airspace opacities in all lung zones bilater ally. There is a small left pleural effusion. No pneumothorax. The heart size is normal. The endotrac heal tube tip is 3.5 cm above the domonique. The nasogastric tube tip is beyond the inferior margin of t he radiograph, but at least to the stomach. A right internal jugular central venous catheter is seen with tip in the right atrium. IMPRESSION: 1. Diffuse lung disease with worsening in left perihilar region, consistent with pulmonary edema vers us pneumonia. 2. Stable small left pleural effusion. Reviewed, dictated and finalized at location A. HER CITIZENSHIP IMPRESSION: 1. Diffuse lung disease with worsening in left perihilar region, consistent wit h pulmonary edema versus pneumonia. 2. Stable small left pleural effusion.
--- NOTE | ~2022-03-31 | XR_ITS ---
EXAMINATION: XR chest ET placement Exam Date/Time: 04/02/2022 18:30 PROFESSIONAL SPORTS SCOUT HISTORY: After intubation to confirm ET placement Comparison: Same date at 2:32 PM. RESULT: Lines, tubes, and devices: New endotracheal tube, terminating 2 cm above the domonique. New NG tube ter minates out of the [id number]. Stable right IJ dialysis catheter. Lungs and pleura: Unchanged diffuse reticular and groundglass opacities and bibasilar airspace opaci ties. Unchanged bilateral angle blunting. Cardiomediastinal silhouette: Stable. Other: No acute osseous or upper abdominal finding. IMPRESSION: Endotracheal tube terminates 2 cm above the domonique. NG tube terminating out of the [id number]. Sta ble right IJ dialysis catheter. Unchanged pulmonary opacities and effusions. Reviewed, dictated and finalized at location K. ESSIONAL SPORTS SCOUT IMPRESSION: Endotracheal tube terminates 2 cm above the domonique. NG tube terminating out of the [id number]. Stable right IJ dialysis catheter. Unchanged pulmonary opaci ties and effusions.
--- NOTE | ~2022-03-31 | XR_ITS ---
EXAMINATION: XR chest 1V portable DATE: 04/16/2022 06:56 INDICATION: Respiratory failure. TECHNIQUE: A single frontal view of the chest was obtained. COMPARISON: Chest single view 04/15/2022, chest CT 04/12/2022 FINDINGS: There is a small left pleural effusion. There is a diffuse interstitial pattern in the lung s. There are airspace opacities in the mid and lower lung zones. No pneumothorax. The heart size is n ormal. The endotracheal tube tip is 4.0 cm above the domonique. The nasogastric tube tip is beyond the i nferior margin of the radiograph, but at least to the stomach. A right internal jugular central venou s catheter is seen with tip in the right atrium. IMPRESSION: 1. Stable diffuse lung disease, consistent with pulmonary edema and lower lung atelectasis versus pne umonia. 2. Stable small left pleural effusion. Reviewed, dictated and finalized at location A. LAGE CLERK IMPRESSION: 1. Stable diffuse lung disease, consistent with pulmonary edema and lower lung atelectasis versus pneumonia. 2. Stable small left pleural effusion.
--- NOTE | ~2022-03-31 | US_ITS ---
EXAMINATION:US venous doppler LE BI INDICATION:Leg pain and fever TECHNIQUE: Multiple grayscale, color flow and Doppler images of the bilateral lower extremity deep ve nous systems were obtained and reviewed. COMPARISON:02/20/2022 FINDINGS: The common femoral, superficial femoral and popliteal veins demonstrate normal respiratory variation, augmentation and compressibility. Color flow is also seen within the posterior tibial, pe roneal, greater saphenous and profunda veins. The left posterior tibial and peroneal veins are not vi sualized. Study limited by patient movement. IMPRESSION: 1: No lower extremity deep venous thrombosis. Reviewed, dictated and finalized at location A. NCIAL SYSTEMS ANALYST
--- NOTE | ~2022-03-31 | XR_ITS ---
EXAMINATION: XR chest 1V portable DATE: 03/31/2022 00:30 INDICATION: Cough TECHNIQUE: frontal view of the chest was obtained. COMPARISON: Chest radiograph dated 03/21/2022 FINDINGS: Opacities in the bilateral mid and lower lung zones. Small bilateral pleural effusions, left greater than right. Linear discoid atelectasis at the right midlung zone. Borderline heart size accounting fo r AP technique. Large-bore dual-lumen right internal jugular central venous catheter with distal tip at the high right atrium. IMPRESSION: 1. Opacities in bilateral mid and lower lung zones which could represent pulmonary edema, pneumonia o r atelectasis. 2. Small bilateral pleural effusions, left greater than right. 3. Borderline heart size. Reviewed, dictated and finalized at location A. CAL OFFICE TECHNOLOGIST IMPRESSION: 1. Opacities in bilateral mid and lower lung zones which could represent pulmon felicia edema, pneumonia or atelectasis. 2. Small bilateral pleural effusions, left greater than right. 3. Borderline heart size.
--- NOTE | ~2022-03-31 | XR_ITS ---
EXAMINATION: XR chest 1V portable DATE: 04/12/2022 06:17 INDICATION: Respiratory failure TECHNIQUE: frontal view of the chest was obtained. COMPARISON: Chest radiograph dated 04/11/2022 FINDINGS: Endotracheal tube tip 3.3 cm above the domonique. Nasogastric tube extends below the left hemidiaphragm with distal tip collimated off the study. Large-bore dual-lumen right internal jugular central venou s catheter with distal tip in the right atrium. Persistent mild scattered opacities in the bilateral mid and lower lung zones, right greater than lef t. No pneumothorax or definitive pleural effusion. The cardiomediastinal silhouette is normal. IMPRESSION: 1. Persistent mild scattered opacities in the mid and lower lung zones which could represent atelecta sis, mild pulmonary edema, pneumonia or some combination thereof. Reviewed, dictated and finalized at location A. TOR DISTRIBUTOR IMPRESSION: 1. Persistent mild scattered opacities in the mid and lower lung zones which co uld represent atelectasis, mild pulmonary edema, pneumonia or some combination thereof.
--- NOTE | ~2022-03-31 | XR_ITS ---
EXAMINATION: XR chest 1V portable INDICATION: Respiratory failure TECHNIQUE: Portable AP chest at 0511 hours COMPARISON: 04/05/2022 FINDINGS: The endotracheal tube ends approximately 2.2 cm above the domonique. The nasogastric tube is f ollowed as far as the stomach. Its tip is beyond the inferior margin of the radiograph. A right inter nal jugular dialysis catheter ends with its tip in the right atrium. Small pleural effusions persist without significant change. No pneumothorax is identified. Cardiomegaly is noted. Diffuse interstitia l and airspace opacities persist with slight improvement. IMPRESSION: 1. Diffuse lung disease with interval improvement, consistent with pneumonia and/or pulmonary edema. 2. Cardiomegaly. 3. Small pleural effusions. Reviewed, dictated and finalized at location A. UNTANT CLERK IMPRESSION: 1. Diffuse lung disease with interval improvement, consistent with pneumonia an d/or pulmonary edema. 2. Cardiomegaly. 3. Small pleural effusions.
--- NOTE | ~2022-03-31 | US_ITS ---
US abdomen limited INDICATION: Elevated liver function tests PROCEDURE: Realtime right upper abdominal ultrasound. COMPARISON: No prior studies for comparison. FINDINGS: The pancreas is normal without focal mass or pancreatic ductal dilation. Liver echotexture is normal without focal mass or intrahepatic biliary dilatation. There is normal directional flow i n the portal vein. Gallbladder surgically absent. Common bile duct measures 4 mm. No sonographic Garg's sign. IMPRESSION: 1: Normal limited abdominal ultrasound. Reviewed, dictated and finalized at location A. ILE MILL OPERATOR TAPE CONTROL
--- NOTE | ~2022-03-31 | US_ITS ---
EXAMINATION: US biopsy renal DATE: 04/07/2022 13:17 INDICATION: Chronic kidney disease. Proteinuria. Hematuria. TECHNIQUE: The procedure including the risks, benefits, and alternatives was discussed with the patie nt. Risks discussed included bleeding and infection. The patient understood the risks and agreed to p roceed. A timeout was performed to verify the patient's name, date of , and procedure to be p erformed. The skin overlying the left kidney was prepped and draped in usual sterile fashion. Anest hetic was administered with 1% lidocaine subcutaneously. An 18 gauge core biopsy needle was then use d to obtain 3 core biopsy specimens under continuous sonographic guidance. The entry site was cleaned and dressed. There were no immediate complications. FINDINGS: Ultrasound images demonstrate the needle in the kidney. IMPRESSION: 1. Ultrasound-guided random left kidney core needle biopsy. Reviewed, dictated and finalized at location A. ES 1 THROUGH 6 TEACHER
--- NOTE | ~2022-03-31 | XR_ITS ---
EXAMINATION: XR chest 1V portable DATE: 04/05/2022 06:15 INDICATION: Intubation. TECHNIQUE: A single frontal view of the chest was obtained. COMPARISON: Chest single view 04/04/2022 FINDINGS: There are moderate-sized right and small left pleural effusions. There are airspace opaciti es in all lung zones bilaterally. No pneumothorax. Cardiomegaly is noted. The endotracheal tube tip i s 2.0 cm above the domonique. The nasogastric tube tip is beyond the inferior margin of the radiograph, but at least to the stomach. A right internal jugular central venous catheter is seen with tip in the right atrium. IMPRESSION: 1. Stable moderate-sized right and small left pleural effusions. 2. Stable diffuse lung disease, consistent with pulmonary edema versus pneumonia. 3. Cardiomegaly. Reviewed, dictated and finalized at location A. WICH MAKER IMPRESSION: 1. Stable moderate-sized right and small left pleural effusions. 2. Stable diffuse lung disease, consistent with pulmonary edema versus pneumoni a. 3. Cardiomegaly.
--- NOTE | ~2022-03-31 | XR_ITS ---
EXAMINATION: XR chest 1V portable DATE: 04/17/2022 06:39 INDICATION: Respiratory failure. TECHNIQUE: A single frontal view of the chest was obtained on 2 radiographs. COMPARISON: Chest single view 04/16/2022, chest CT 04/12/2022 FINDINGS: The patient is rotated to her left. There are airspace opacities in the mid and lower lung zones. There are small pleural effusions. No pneumothorax. The heart size is normal. The endotracheal tube tip is 2.7 cm above the domonique. The nasogastric tube tip is in the stomach. A right internal ju gular central venous catheter is seen with tip in the right atrium. There are surgical clips in left neck. IMPRESSION: 1. Stable airspace opacities in the mid and lower lung zones, consistent with atelectasis versus pneu monia. 2. Stable small pleural effusions. Reviewed, dictated and finalized at location A. EDGER IMPRESSION: 1. Stable airspace opacities in the mid and lower lung zones, consistent with a telectasis versus pneumonia. 2. Stable small pleural effusions.
--- NOTE | ~2022-03-31 | XR_ITS ---
XR chest 1V portable 04/08/2022 06:17 Indication: Respiratory distress. Intubation. Procedure: AP portable chest Comparison: Comparison to multiple prior studies sequentially, with oldest reviewed study dated 03/09. Findings: Endotracheal tube tip approximately 1.9 cm above the domonique. Distal aspect of the NG tube l ikely in the stomach. Right IJ central venous catheter tip near the cavoatrial junction. Cardiomegaly . Diffuse bilateral airspace disease is not significantly changed allowing for technique. Small bilat eral pleural effusions. No acute osseous abnormality. Impression: 1: No significant change to diffuse bilateral airspace disease which may represent edema and/or pneum onia. 2: Bilateral pleural effusions. Reviewed, dictated and finalized at location A. EPSY PHYSICIAN Impression: 1: No significant change to diffuse bilateral airspace disease which may repres ent edema and/or pneumonia. 2: Bilateral pleural effusions.
--- NOTE | ~2022-03-31 | XR_ITS ---
EXAMINATION: XR chest 1V portable INDICATION: Respiratory failure TECHNIQUE: Portable AP chest at 0548 hours COMPARISON: 04/21/2022 FINDINGS: A tracheostomy is in expected position. Large bore right internal jugular central venous ca theter ends with its tip in the right atrium. Diffuse bilateral airspace opacities persist but have i mproved. A small left pleural effusion is also improved. The cardiomediastinal silhouette is normal. IMPRESSION: 1. Diffuse lung disease with interval improvement, consistent with pneumonia and/or pulmonary edema a nd/or acute respiratory distress syndrome (ARDS). 2. Small left pleural effusion, decreased. Reviewed, dictated and finalized at location A. WINDER IMPRESSION: 1. Diffuse lung disease with interval improvement, consistent with pneumonia an d/or pulmonary edema and/or acute respiratory distress syndrome (ARDS). 2. Small left pleural effusion, decreased.
--- NOTE | ~2022-03-31 | US_ITS ---
EXAMINATION: US venous doppler UE DATE: 04/11/2022 14:58 INDICATION: Extremity edema TECHNIQUE: Mcintosh scale images with and without compression and Doppler images of the right and left up per extremity veins were obtained. COMPARISON: None. FINDINGS: The right and left internal jugular vein, subclavian vein, axillary vein, brachial veins, basilic vei n, cephalic vein are patent. The radial and ulnar veins are demonstrated. IMPRESSION: 1. Patent bilateral upper extremity veins. No evidence of deep venous thrombosis. Reviewed, dictated and finalized at location A. GROOVER IMPRESSION: 1. Patent bilateral upper extremity veins. No evidence of deep venous thrombosi s.
--- NOTE | ~2022-03-31 | XR_ITS ---
EXAMINATION: XR chest 1V portable DATE: 04/14/2022 06:09 INDICATION: Respiratory failure TECHNIQUE: frontal view of the chest was obtained. COMPARISON: Chest radiograph dated 04/13/2022 FINDINGS: Endotracheal tube tip 3.1 cm above the domonique. Nasogastric tube extends below the left hemidiaphragm with distal tip collimated off the study. Large-bore dual-lumen right internal jugular central venou s catheter with distal tip at the caudal aspect of the right atrium. Persistent airspace opacities scattered throughout the right lung and left mid and lower lung zones. Blunting at the left costophrenic angle consistent with small left pleural effusion. No definitive ri ght pleural effusion although sensitivity is decreased on supine imaging. No pneumothorax. The cardio mediastinal silhouette is normal. IMPRESSION: 1. Persistent scattered bilateral airspace opacities which could represent atelectasis and/or pneumon ia. 2. Small left pleural effusion. Reviewed, dictated and finalized at location A. CE DISPATCHER IMPRESSION: 1. Persistent scattered bilateral airspace opacities which could represent atel ectasis and/or pneumonia. 2. Small left pleural effusion.
--- NOTE | ~2022-03-31 | CT_ITS ---
EXAMINATION: CT chest abdomen pelvis wo con DATE: 04/12/2022 09:40 BELT PICKER INDICATION: Leukocytosis and fevers. TECHNIQUE: Computed tomography (CT) of the chest, abdomen, and pelvis was performed without intraveno us contrast. The dose-length product was 1956.18 mGy-cm. Automated exposure control and iterative rec onstruction technique were employed. COMPARISON: CT dated 04/02/2022 FINDINGS: CHEST CT: Small pericardial effusion. Heart size normal. There is atherosclerosis of the aorta and coronary art eries. Improved bilateral pleural effusions compared with prior study. There is an endotracheal tube present. NG tube tip in the stomach. There is improving bilateral airspace disease compared with prio r study which may represent resolving atelectasis and/or pneumonia. No mediastinal or hilar lymphaden opathy. ABDOMEN/PELVIS CT: Status post cholecystectomy. The liver, spleen, pancreas, adrenal glands and kidneys are unremarkable . Nonobstructive bowel gas pattern. There is mild thickening of the rectum with subtle perirectal inf lammation, suspicious for proctitis. Colonic diverticulosis without evidence for diverticulitis. Mild ly prominent inguinal lymph nodes, likely reactive. There is moderate-severe thoracic and lumbar spon dylosis. IMPRESSION: 1. Improving bilateral airspace consolidation which may represent resolving pneumonia and/or atelecta sis. 2: Improving pleural effusions. 3: Improving small pericardial effusion. 4: There is mild thickening of the rectum with subtle perirectal infiltration, suspicious for proctit is, new since prior examination. Reviewed, dictated and finalized at location A. PICKER IMPRESSION: 1. Improving bilateral airspace consolidation which may represent resolving pne umonia and/or atelectasis. 2: Improving pleural effusions. 3: Improving small pericardial effusion. 4: There is mild thickening of the rectum with subtle perirectal infiltration, suspicious for proctitis, new since prior examination.
--- NOTE | ~2022-03-31 | CT_ITS ---
EXAMINATION: CT brain wo con DATE: 04/09/2022 09:17 INDICATION: Transient alteration of awareness. TECHNIQUE: Computed tomography (CT) of the head was performed without intravenous contrast. The dose- length product was 908.00 mGy-cm. Automated exposure control and iterative reconstruction technique w ere employed. COMPARISON: CT dated 04/02/2022 FINDINGS: There is intracranial atherosclerosis. Generalized atrophy. Chronic bilateral lacunar infar ctions. There are scattered mild periventricular and subcortical white matter changes, most likely re lated to small vessel ischemic disease (microangiopathy). No ventriculomegaly or midline shift. Basil ar cisterns are patent there is intracranial atherosclerosis. Paranasal sinuses and mastoids are pneu matized. IMPRESSION: 1. No acute intracranial abnormality. 2: Chronic bilateral lacunar infarctions. 3: Chronic age-related findings. Reviewed, dictated and finalized at location A. S DRIVER
--- NOTE | ~2022-03-31 | CT_ITS ---
EXAMINATION: CT brain wo con DATE: 04/02/2022 21:29 INDICATION: Confusion. Lethargy. TECHNIQUE: Computed tomography (CT) of the head was performed without intravenous contrast. The mA wa s adjusted according to patient size. Iterative reconstruction technique was employed. The dose-lengt h product was 605.33 mGy-cm. COMPARISON: Head CT 03/18/2022, 10/25/2019 FINDINGS: There are old infarcts in the bilateral basal ganglia. There are scattered areas of low att enuation in the cerebral white matter. There is no intracranial hemorrhage, acute infarction, or abno rmal intracranial mass lesion. The ventricles are normal in size. There are likely changes of ocular lens replacement surgeries. There is mild mucosal thickening in the paranasal sinuses. There are like ly changes of ocular lens replacement surgeries. There is a small right mastoid effusion. IMPRESSION: 1. 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 2. Mild nonspecific cerebral white matter disease, which likely represents chronic small vessel ische chantale disease. Reviewed, dictated and finalized at location A. ING REEL ASSEMBLER IMPRESSION: 1. 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 2. Mild nonspecific cerebral white matter disease, which likely represents machine operator hop worker amy small vessel ischemic disease.
--- NOTE | ~2022-03-31 | XR_ITS ---
EXAMINATION: XR chest 1V portable DATE: 04/20/2022 06:04 INDICATION: Respiratory failure. TECHNIQUE: A single frontal view of the chest was obtained. COMPARISON: Chest single view 04/19/2022 FINDINGS: There are airspace opacities in all lung zones with a perihilar predominance. There is a sm all left pleural effusion. No pneumothorax. The heart size is normal. The endotracheal tube tip is 3. 8 cm above the domonique. A right internal jugular central venous catheter is seen with tip in the right atrium. IMPRESSION: 1. Stable airspace opacities in the lungs with a perihilar predominance, consistent with pulmonary ed kasandra versus pneumonia. 2. Stable small left pleural effusion. Reviewed, dictated and finalized at location A. CE SUPPORT SPECIALIST IMPRESSION: 1. Stable airspace opacities in the lungs with a perihilar predominance, consis tent with pulmonary edema versus pneumonia. 2. Stable small left pleural effusion.
--- NOTE | ~2022-03-31 | XR_ITS ---
EXAMINATION: XR chest 1V portable DATE: 04/10/2022 06:25 INDICATION: Respiratory failure TECHNIQUE: frontal view of the chest was obtained. COMPARISON: Chest radiograph dated 04/09/2022 FINDINGS: Endotracheal tube tip 3.5 cm above the domonique. Large-bore dual-lumen right internal jugular central v enous catheter with distal tip in the right atrium. Nasogastric tube extends below the left hemidiap hragm with distal tip collimated off the study. Slight interval increase in a combination of patchy, linear and hazy airspace opacities in the bilate ral mid to lower lung zones consistent with small bilateral layering pleural effusions and associated atelectasis, pulmonary edema and/or pneumonia. The cardiomediastinal silhouette is normal. IMPRESSION: 1. Slight interval increase in opacities in bilateral mid and lower lung zones consistent with small bilateral pleural effusions and associated atelectasis, pulmonary edema and/or pneumonia. Reviewed, dictated and finalized at location A. L BUILDING ASSEMBLER IMPRESSION: 1. Slight interval increase in opacities in bilateral mid and lower lung zones consistent with small bilateral pleural effusions and associated atelectasis, p ulmonary edema and/or pneumonia.
--- NOTE | ~2022-03-31 | XR_ITS ---
EXAMINATION: XR chest 1V portable INDICATION: Respiratory failure TECHNIQUE: Portable AP chest at 0552 hours COMPARISON: 04/12/2022 FINDINGS: The endotracheal tube ends approximately 3.6 cm above the domonique. The nasogastric tube is f ollowed as far as the stomach. Its tip is beyond the inferior margin of the radiograph. A large bore right internal jugular catheter ends with its tip in the right atrium. There are small pleural effusi ons. Minimal bibasilar airspace opacities persist without significant change. There is no pneumothora x. The cardiomediastinal silhouette is stable. IMPRESSION: 1. Small pleural effusions, stable. 2. Stable bibasilar airspace opacities, consistent with atelectasis versus pneumonia. Reviewed, dictated and finalized at location A. UNTS PAYABLE ACCOUNTANT IMPRESSION: 1. Small pleural effusions, stable. 2. Stable bibasilar airspace opacities, consistent with atelectasis versus pneu monia.
--- NOTE | ~2022-03-31 | XR_ITS ---
EXAM: XR abdomen NG/feed tube insert DATE: 04/02/2022 18:42 HISTORY: OG tube placement . COMPARISON: Multiple chest x-rays, same date. FINDINGS: New NG tube, tip and side port project over the stomach Moderate left effusion. Bibasilar airspace disease. Diffuse reticular opacities. Incompletely visualized bowel gas pattern. Degenerativ e changes in the spine. IMPRESSION: NG tube, in good position. Reviewed, dictated and finalized at location K. APY ASSISTANT IMPRESSION: NG tube, in good position.
--- NOTE | ~2022-03-31 | US_ITS ---
EXAMINATION: US thoracentesis DATE: 04/05/2022 16:12 INDICATION: pleural effusion TECHNIQUE: The procedure and its risks, benefits, and alternatives were discussed with the patient's daughter. Potential risks discussed included bleeding, infection, and pneumothorax. She understood th e risks and agreed to proceed. The skin was prepped and draped in sterile fashion. 1% lidocaine was u sed for local anesthesia. Under ultrasound guidance, a 5 Fr catheter with trochar was advanced into t he left pleural effusion. Fluid was aspirated. The catheter was removed, and a dressing was applied. There were no immediate complications. FINDINGS: Ultrasound images demonstrate a left pleural effusion and the catheter within the fluid. IMPRESSION: 1. Successful ultrasound-guided thoracentesis yielding 950 mL of [id number] fluid. Reviewed, dictated and finalized at location A. O CONTROL CRANE OPERATOR IMPRESSION: 1. Successful ultrasound-guided thoracentesis yielding 950 mL of ikj-qkyyp-jeq ored fluid.
--- NOTE | 2022-03-31 00:15 | ECG_ITS ---
Measurements Intervals [place] Rate: 78 P: 12 ID: [id number] QRS: 6 QRSD: 94 T: 142 QT: 373 QTc: 425 Interpretive Statements SINUS RHYTHM WITH SHORT ID INTERVAL DELAYED PRECORDIAL R/S TRANSITION BORDERLINE ST-T WAVE ABNORMALITY- INF/HIGH LAT LEADS BASELINE ARTIFACT- I, II, III, AVR, AVL, AVF, V4-V6 BORDERLINE ECG COMPARED TO ECG 03/22/2022 13:22:41 SINUS RHYTHM NOW PRESENT Electronically Signed On 03-31-2022 9:42:44 OFFICE ASSISTANT by Brannon Hatfield D.O.
--- NOTE | 2022-03-31 00:19 | ED.GENADULT ---
HPI - General Adult General Chief complaint: Shortness of Breath/Dyspnea Stated complaint: SOB Source: RN notes reviewed History of Present Illness HPI narrative: Patient presents emergency department from home via EMS for shortness of breath. Patient states that symptoms have been ongoing since she was discharged from the hospital yesterday. States that she became more short of breath today and shortness of breath is worse with any ambulation or movement she states he is currently on 2 L nasal cannula and had increased herself to 4 L nasal cannula she also notes increased swelling in her legs. The patient was recently started on dialysis with last dialysis on Sunday and is scheduled to go to dialysis tomorrow. She denies any fevers or chills she did note chest pain in route by EMS and was given nitro and has no chest pain at this time. Patient states she is still does make urine Related Data Home Medications Medication Instructions Recorded Confirmed cyanocobalamin (vitamin B-12) 2,000 mcg PO DAILY 03/19/19 03/17/22 2,000 mcg tablet,extended release (Vitamin B-12 ER) fluticasone propionate 50 2 spray intranasal DAILY 03/19/19 03/17/22 mcg/actuation nasal spray,suspension insulin glargine 100 unit/mL (3 40 unit subcut HS 07/04/21 03/17/22 mL) subcutaneous pen (Lantus Solostar U-100 Insulin) montelukast 10 mg tablet 10 mg PO QAM 11/22/21 03/17/22 albuterol sulfate 90 mcg/actuation 2 puff inhalation QID 02/11/22 03/17/22 aerosol inhaler (Ventolin HFA) insulin aspart U-100 100 unit/mL 10 - 30 sliding scale dose subcut 02/11/22 03/17/22 (3 mL) subcutaneous pen (Novolog TIDWM Flexpen U-100 Insulin aspart) verapamil 360 mg 24 hr 360 mg PO DAILY 02/11/22 03/17/22 capsule,extended release insulin syringe-needle U-100 1 mL #10 ea 03/14/22 03/17/22 31 gauge x 15/64 (BD Veo Insulin Syringe Ultra-Fine) levothyroxine 200 mcg tablet 175 mcg PO DAILY 03/14/22 03/17/22 (Synthroid) Allergies Allergy/AdvReac Type Severity Reaction Status Date / Time diphenhydramine Allergy Unknown restless Verified 03/17/22 06:28 legs nickel Allergy Unknown hives and Verified 03/17/22 06:28 itchy rash nifedipine Allergy Unknown palpitation Verified 03/17/22 06:28 s Sulfa (Sulfonamide Allergy Unknown Urticaria Verified 03/17/22 06:28 Antibiotics) and hives Eswujdx-ANM-AlA Reductase AdvReac Intermediate muscle Verified 03/17/22 06:28 Inhibitor cramps [Bqutntl-Ymg-Zrk Reductase Inhibitor] CALCIUMCHANNEL AdvReac Unknown SEE COMMIT Uncoded 03/17/22 06:28 Review of Systems Review of Systems: Gen.: Denies fevers or chills ENT: Denies congestion Respiratory: See HPI CV: Reports chest pain GI: Denies abdominal pain nausea, emesis or diarrhea Musculoskeletal: Denies back pain or muscle pain Neuro: Denies numbness, tingling, weakness or focal weakness Skin: Denies rash Except as documented, all other systems reviewed and negative PMFSH Past Medical History Medical History 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 Chronic diastolic (congestive) heart failure Chronic kidney disease, stage 3 unspecified Chronic kidney disease, stage III (moderate) COPD (chronic obstructive pulmonary disease) Coronary artery disease involving [place] heart without angina pectoris Depression DVT (deep venous thrombosis) ARACELY (generalized anxiety disorder) GERD without esophagitis History of stroke Hypertensive heart disease with heart failure and stage 3 chronic kidney disease Hypothyroid Left knee DJD Long-term insulin use Peripheral polyneuropathy Pre-ulcerative calluses Sepsis Type 2 diabetes mellitus with hyperglycemia Family History Family History Father Hypertension Family history of coronary artery disease Sibling Hypertension Family history of coronary artery disease Mother Cerebrovas
[2022-03-31 00:33] LABS: Hematocrit 31.4 % (37.0-47.0); Hemoglobin 9.2 g/dL (12.0-15.0); Mean Corpuscular HGB Conc 29.3 g/dl (32-36); Mean Corpuscular Hemoglobin 24.7 pg (26-34); Mean Corpuscular Volume 84.2 fl (80-100); Mean Platelet Volume 9.9 fl (7.4-10.4); Platelet Count Result 383 k/mm3 (150-375); Red Blood Count 3.73 M/mm3 (4.2-5.4); Red Cell Distribution Width 17.7 % (11.5-14.5); White Blood Count 23.7 K/mm3 (4.5-10.0)
[2022-03-31 00:43] LABS: Alveolar/Arterial O2 Gradient 27.2 mmHg; Base Excess ABG -0.7 mEq/l (+/-2.0); Fractional Inspired Oxygen 24 %; HCO3 ABG 25.3 mEq/l (22.0-26.0); Methemoglobin ABG 0.1 %THb (0-1.5); Oxygen Content ABG 13.4 %vol (16.0-22.0); Oxyhemoglobin 94.4 % THb (90.0-100.0); PCO2 ABG 48.2 mmHg (35.0-45.0); PO2 ABG 86.6 mmHg (80.0-100.0); PO2 FiO2 Ratio Arterial Blood 3.61 %; Reduced Hemoglobin 4.5 %THb (0-5.0); pH ABG 7.338 (7.350-7.450)
[2022-03-31 00:44] LABS: Alanine Aminotransferase 19 U/L (6-35); Albumin Level 3.9 g/dL (3.5-5.1); Alkaline Phosphatase 81 U/L (38-126); Anion Gap 13 mmol/L (8-16); Aspartate Amino Transferase 28 U/L (14-36); Bilirubin,Total 0.6 mg/dL (0.2-1.3); Blood Urea Nitrogen 61 mg/dL (7-17); Calcium 8.9 mg/dL (8.4-10.2); Carbon Dioxide 23 mmol/L (22-30); Chloride 99 mmol/L (98-107); Estimated CRCL calculation 29 ml/min; Estimated Glomerular Filt Rate 21; Glucose 290 mg/dL (65-110); INR 2.4; Potassium 4.8 mmol/L (3.4-5.0); Prothrombin Time 25.7 Seconds (11.1-14.7); Sodium 135 mmol/L (137-145)
[2022-03-31 00:45] LABS: Partial Thromboplastin Time 47.9 SECONDS (22.3-36.8)
[2022-03-31 00:46] LABS: Device NASAL CANNULA; Modified Allen's Test Pass; Site Drawn RIGHT RADIAL
[2022-03-31 00:54] LABS: NT Pro B Type Natriuretic Pept 2240 pg/mL (5-100); Troponin I 0.018 ng/mL (0.000-0.034)
[2022-03-31 01:01] LABS: Anisocytosis 1+ (NORMAL); Band Neutrophils Percent 1 % (0-6); Lymphocytes Absolute Manual 2.37 K/mm3 (1.1-4.5); Metamyelocytes Percent 2 %; Microcytosis 1+ (NORMAL); Monocytes Absolute Manual 1.42 K/mm3 (0.1-0.90); Monocytes Percent Manual 6 % (3-9); Neutrophils Absolute Manual 19.43 K/mm3 (1.7-7.2); Neutrophils Percent Manual 81 % (46-73); Platelet Estimate Adequate (Adequate); Schistocytes None Seen (NORMAL); Smudge Cells FEW; Total Cells Counted 100
[2022-03-31 01:10] LABS: Influenza A QL RT-PCR Negative (Negative); Influenza B QL RT-PCR Negative (Negative); SARS-CoV-2 RNA PCR Negative
[2022-03-31] MEDS: IPRATROPIUM BR 0.02% INH SOLN 0.5 MG/2.5 ML VIAL INHALATION ×4 (02:00→21:06)
[2022-03-31] MEDS: ALBUTEROL SULFATE NEB 2.5 MG/3 ML INH 5 MG INHALATION (02:00)
--- NOTE | 2022-03-31 03:30 | ADMGEN ---
This patient, Gregoria Rae, was admitted to Medical Room 344-01. Patient/family oriented to hospital policies and general routines including ID bracelet, bed and alarms, visiting hours, pain management, procedures, bathroom and other care routines, personal items, smoking policy, room service/diet, and visiting hours. Information on how to activate the Rapid Response Team has been discussed. Patient/Family are encouraged to report perceived risks to care and to ask questions if they do not understand what they are told or what they should do.
[2022-03-31 05:47] LABS: Troponin I 0.014 ng/mL (0.000-0.034)
--- NOTE | 2022-03-31 07:55 | PC.NURSE ---
Patient off of unit to dialysis
[2022-03-31 08:21] LABS: Troponin I 0.014 ng/mL (0.000-0.034)
[2022-03-31 09:17] LABS: Glucose Point of Care 161 mg/dl (65-105)
--- NOTE | 2022-03-31 10:29 | PCPTNOTE ---
Attempted physical therapy evaluation. Pt. is in dialysis at this time and is unable to be seen for evaluation. Following
--- NOTE | 2022-03-31 10:43 | PCOTNOTE ---
Attempted occupational therapy evaluation. Pt. is in dialysis at this time and is unable to be seen for evaluation. Following
[2022-03-31] MEDS: SODIUM CHLORIDE 0.9% IV 1,000 ML 999 ML IV CONT (11:16)
[2022-03-31] MEDS: EPOETIN ALFA-EPBX 10,000 UNITS/ML VIAL 10000 UNITS IV PUSH (11:17)
[2022-03-31] MEDS: HEPARIN SODIUM 1,000 UNITS/ML VIAL 1000 UNITS IV PUSH (11:28)
--- NOTE | 2022-03-31 11:48 | PM.CNNEP ---
Assessment and Plan Assessment and plan (1) MARINA (acute kidney injury): Code(s): N17.9 - Acute kidney failure, unspecified Status: Acute Assessment and Plan: dialysis dependent at this time was diuretic resistant on recent admission initiated once again on hemodialysis (more so for control of volume status) how much is RAINA/OHS playing a role? hopefully dialysis is temporary again (but I am concerned as this is her second bout of MARINA/ARF in the last 2 months) resume IV diuretics (since makes some urine) consider checking 24hr urine collection for better assessment of renal function (2) Stage 3b chronic kidney disease: Code(s): N18.32 - Chronic kidney disease, stage 3b Status: Chronic Assessment and Plan: baseline creatinine runs ~ 1.6 - 2.2mg/dl likely due to CAD/CHF, vascular disease, diabetes, and age-related change (3) Acute on chronic respiratory failure: Code(s): J96.20 - Acute and chronic respiratory failure, unspecified whether with hypoxia or hypercapnia Status: Acute Assessment and Plan: multifactorial: volume overload asthma/COPD(?) RAINA/OHS fluid removal with HD Pulmonary consultation follow respiratory status (4) Hypertension: Code(s): I10 - Essential (primary) hypertension Status: Chronic Assessment and Plan: running a bit high currently may improve with diuresis and fluid removal follow trend of hemodynamics may need further adjustment in medications (5) Anemia: Code(s): D64.9 - Anemia, unspecified Status: Acute Assessment and Plan: likely due to MARINA, CKD and acute illness Epogen with HD follow H/H (6) Type 2 diabetes mellitus with hyperglycemia: Code(s): E11.65 - Type 2 diabetes mellitus with hyperglycemia Status: Chronic Assessment and Plan: follow accuchecks glycemic control Will continue to follow. History of Present Illness Reason for Consult Consult date: 03/31/22 Reason for consult: acute renal failure (on chronic kidney disease requiring dialysis) Chief Complaint Chief complaint: Acute on Chronic Resp Failure,CHF,Chronice Renal F History of Present Illness Narrative: The patient is a 71-year-old female with a past medical history as outlined below who presented to [facility] Emergency room via EMS further evaluation of shortness of breath. The patient was just recently discharged from the [facility] after being hospitalized with shortness of breath and volume overload. During that hospitalization, she was treated aggressively with IV diuretic therapy but diuretics did not seem to be effective in promoting fluid removal. She had to be initiated on renal replacement therapy / dialysis in effort to optimize her volume status which she tolerated fairly well. Unfortunately, efforts to optimize her volume status without the use of dialysis were ineffective and she remained dialysis dependent during that hospital stay. She was subsequently discharged with a plan for outpatient dialysis with the hope that her kidney function will eventually improve with just supportive therapy. According to the patient, her shortness of breath seem to immediately return after her discharge. She became more short of breath today which seem to be worse with any type of physical activity she is normally on 2 L of oxygen by nasal cannula which increased to 4 L but this did not seem to help with regard to her shortness of breath. She also feels that her lower extremity edema seems to have worsened since her discharge from the hospital as well. Due to these symptoms, she presented to [facility] Emergency room for further assessment. Workup and evaluation in the emergency room demonstrated the patient hemodynamically stable if not a bit hypertensive with evidence of mild respiratory distress. Routine blood test demonstrated labs consistent with he
[2022-03-31 12:13] LABS: Glucose Point of Care 177 mg/dl (65-105)
[2022-03-31] MEDS: FLUTICASONE/UMECLIDIN/VILANTER 200-62.5-25 MCG ELLIPTA 1 PUFF INHALATION (13:29)
--- NOTE | 2022-03-31 14:07 | PM.IMHP ---
H&P: HPI History of Present Illness Date/Time: 03/31/22 14:07 Chief Complaint: shortness of breath Narrative: ED-HPI narrative: Patient presents emergency department from home via EMS for shortness of breath.? Patient states that symptoms have been ongoing since she was discharged from the hospital yesterday.? States that she became more short of breath today and shortness of breath is worse with any ambulation or movement she states he is currently on 2 L nasal cannula and had increased herself to 4 L nasal cannula she also notes increased swelling in her legs.? The patient was recently started on dialysis with last dialysis on Sunday and is scheduled to go to dialysis tomorrow.? She denies any fevers or chills she did note chest pain in route by EMS and was given nitro and has no chest pain at this time.? Patient states she is still does make urine patient with end-stage renal disease was recently started on hemodialysis and was discharged with planning to have dialysis Sunday, and Sunday, as patient was scheduled to have dialysis tomorrow however patient became short of breath and presented emergency department as patient was volume overloaded, patient states he does urinated once today and had a urine this morning, patient denies any cough shortness of breath fever or chills, most likely patient has volume overload required additional dialysis before discharging, patient will be seen her fuel island attendant and further recommendation to follow. patient admitted as observation status Review of Systems Review of Systems: As per HPI. 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 Chronic diastolic (congestive) heart failure Chronic kidney disease, stage 3 unspecified Chronic kidney disease, stage III (moderate) COPD (chronic obstructive pulmonary disease) Coronary artery disease involving [place] heart without angina pectoris Depression DVT (deep venous thrombosis) ARACELY (generalized anxiety disorder) GERD without esophagitis History of stroke Hypertensive heart disease with heart failure and stage 3 chronic kidney disease Hypothyroid Left knee DJD Long-term insulin use Peripheral polyneuropathy Pre-ulcerative calluses Sepsis Type 2 diabetes mellitus with hyperglycemia Family History Family History Father Hypertension Family history of coronary artery disease Sibling Hypertension Family history of coronary artery disease Mother Cerebrovascular accident Other Asthma Depression Family history of Alzheimer's disease Family history of arthritis Family history of cardiovascular disease Family history of lymphoma Family history of obesity Family history of seizure disorder Social History Social History Smoking packs per day: 2 Smoking cigarettes per day: 40.0 Years smoked: 30 Smoking pack-years: 60.00 Smoking status: Former smoker Tobacco type: cigarettes Second hand tobacco smoke exposure: No Smoking end date: 05/07/89 Alcohol intake: never Drinks per week: 1 Alcohol use details: 1/MONTH Substance use: never Substance use type: marijuana Lack of Transportation: No Lack of Food: Never True Current Housing: I Have Housing Concerned About Future Housing: No Difficulty Paying Gas/Electric Bills: No Difficulty Paying for Meds: No Currently Unemployed: No Education: Bachelor's Degree Difficulty w/ Childcare or Family Care: No Gender identity (if verbalized by the patient): Female Spiritual care concerns: No Meds Home Medications and Allergies Home Medications Medication Instructions Recorded Confirmed Type cyanocobalamin (vitamin B-12) 2,000 mcg PO DAILY 03/19/19 03/31/22 History 2,000 mcg tablet,extended release (Vitamin B-12 ER) flu
--- NOTE | 2022-03-31 15:24 | PC.NURSE ---
Patient showing AFIB rhythm on the ekg monitor with heart rate between 101-110. Spoke with Dr. Valderrama stated to give morning Metoprolol dose that was held due to dialysis. Manager Ent checked patient's blood pressure (see VITALS). After blood pressure was taken, machine sign writer checked monitor again and patient has converted back to normal sinus rhythm with heart rate resting 68-71. Manager Ent called Dr. Valderrama back and Metoprolol will not be given.
[2022-03-31 17:34] LABS: Glucose Point of Care 223 mg/dl (65-105)
[2022-03-31] MEDS: FERROUS SULFATE 324 MG TABLET PO (17:35)
[2022-03-31] MEDS: BUMETANIDE 1 MG TABLET 2 MG PO (17:35)
[2022-03-31] MEDS: ALPRAZolam (*CRX) 0.5 MG TABLET PO (17:36)
[2022-03-31] MEDS: GABAPENTIN 300 MG CAPSULE PO (17:36)
[2022-03-31] MEDS: INSULIN ASPART (*BKC) 100 UNITS/ML SUB-Q (17:37)
[2022-03-31] MEDS: WARFARIN (*PBKC) 5 MG TABLET PO (18:14)
[2022-03-31] MEDS: MELATONIN 5 MG TABLET PO (21:23)
[2022-03-31] MEDS: CEFDINIR 300 MG CAPSULE PO (21:24)
[2022-03-31] MEDS: INSULIN GLARGINE (*BKC) 100 UNITS/ML 40 UNITS SUB-Q (21:24)
[2022-03-31 21:34] LABS: Glucose Point of Care 243 mg/dl (65-105)
[2022-04-01] VITALS (33 sets, daily range): BP systolic 132–159; BP diastolic 52–75; PULSE 60–135; RESP 16–24; TEMP 0–36.7; O2SAT 94–98
[2022-04-01] MEDS: IPRATROPIUM BR 0.02% INH SOLN 0.5 MG/2.5 ML VIAL INHALATION ×5 (01:56→23:01)
--- NOTE | 2022-04-01 04:09 | PC.NURSE ---
ZANE NOTIFIED AT THIS TIME REGARDING CONCERNS RT HAD FOR PATIENTS CURRENT RESPIRATORY STATUS AND NEED FOR SUPPLEMENTATION. PT CURRENTLY ON 2L O2 @ 100% WITH ABDOMINAL BREATHING. RECOMMENDATIONS COMMUNICATED BETWEEN PHYSICIAN AND RT.
[2022-04-01 05:41] LABS: Alveolar/Arterial O2 Gradient 66.6 mmHg; Carboxyhemoglobin 0.3 % THb (0-2.0); Fractional Inspired Oxygen 30 %; HCO3 ABG 28.9 mEq/l (22.0-26.0); Methemoglobin ABG 0.2 %THb (0-1.5); Oxygen Content ABG 11.8 %vol (16.0-22.0); Oxygen Saturation ABG 94.2 % (95.0-100.0); Oxyhemoglobin 93.7 % THb (90.0-100.0); PCO2 ABG 58.7 mmHg (35.0-45.0); PO2 ABG 78.3 mmHg (80.0-100.0); PO2 FiO2 Ratio Arterial Blood 2.61 %; Reduced Hemoglobin 5.8 %THb (0-5.0); Total Hemoglobin 8.9 g/dL (12.0-18.0)
[2022-04-01 05:43] LABS: Modified Allen's Test Pass; Site Drawn RIGHT RADIAL
[2022-04-01 05:44] LABS: Device NON-INVASIVE VENT; Non-Invasive Vent Rate 16 /MIN
[2022-04-01 05:45] LABS: Non-Invasive Expiratory Pressure 6 CMH2O; Non-Invasive Inspiratory Pressure 14 CMH2O
[2022-04-01 05:51] LABS: Basophils Absolute Auto 0.1 K/mm3 (0.0-0.1); Basophils Percent Auto 0.4 % (0.2-1.2); Eosinophils Absolute Auto 0.2 K/mm3 (0-0.3); Eosinophils Percent Auto 1.4 % (0-4.4); Hematocrit 29.1 % (37.0-47.0); Hemoglobin 8.2 g/dL (12.0-15.0); Immature Granulocyte Absolute 0.13 K/mm3 (0.00-0.031); Immature Granulocyte Percent A 0.7 % (0-0.5); Lymphocytes Absolute Auto 1.29 K/mm3 (0.9-3.2); Lymphocytes Percent Auto 7.4 % (18.3-44.2); Mean Corpuscular HGB Conc 28.2 g/dl (32-36); Mean Corpuscular Hemoglobin 24.5 pg (26-34); Mean Corpuscular Volume 86.9 fl (80-100); Mean Platelet Volume 9.9 fl (7.4-10.4); Monocytes Absolute Auto 2.2 K/mm3 (0.1-0.6); Monocytes Percent Auto 12.4 % (2.6-8.5); Neutrophils Absolute Auto 13.5 K/mm3 (1.3-6.7); Neutrophils Percent Auto 77.7 % (45.5-73.1); Platelet Count Result 317 k/mm3 (150-375); Red Blood Count 3.35 M/mm3 (4.2-5.4); Red Cell Distribution Width 17.6 % (11.5-14.5); White Blood Count 17.4 K/mm3 (4.5-10.0)
--- NOTE | 2022-04-01 05:57 | PC.NURSE ---
RESPONDING TO BIPAP ALARM. UPON ENTERING ROOM IT WAS NOTED THAT PATIENT HAD REMOVED MASK WHICH WAS FOUND IN LAP. EDUCATION PROVIDED TO PATIENT. MASK WAS PLACED BACK ON PATIENT AND RT WAS NOTIFIED.
[2022-04-01 06:00] LABS: INR 3.2; Prothrombin Time 31.5 Seconds (11.1-14.7)
[2022-04-01 06:08] LABS: Alanine Aminotransferase 17 U/L (6-35); Albumin Level 3.3 g/dL (3.5-5.1); Alkaline Phosphatase 82 U/L (38-126); Anion Gap 11 mmol/L (8-16); Aspartate Amino Transferase 18 U/L (14-36); Bilirubin,Total 0.4 mg/dL (0.2-1.3); Blood Urea Nitrogen 44 mg/dL (7-17); Calcium 8.3 mg/dL (8.4-10.2); Carbon Dioxide 27 mmol/L (22-30); Chloride 98 mmol/L (98-107); Estimated CRCL calculation 25 ml/min; Estimated Glomerular Filt Rate 18; Glucose 182 mg/dL (65-110); Phosphorus 4.7 mg/dL (2.5-4.5); Potassium 3.9 mmol/L (3.4-5.0); Sodium 136 mmol/L (137-145)
[2022-04-01] MEDS: LEVOTHYROXINE SODIUM 100 MCG TABLET PO (06:18)
[2022-04-01] MEDS: LEVOTHYROXINE SODIUM 75 MCG TABLET PO (06:19)
--- NOTE | 2022-04-01 06:20 | PC.NURSE ---
RT NOTIFIED ABOUT BIPAP ALARM PATIENT HAS CONSEQUENTLY REMOVED MASK.
[2022-04-01 07:12] LABS: Platelet Estimate Adequate (Adequate); Schistocytes None Seen (NORMAL); Stomatocytes 1+ (NORMAL)
[2022-04-01 07:13] LABS: Anisocytosis 1+ (NORMAL); Hypochromasia 2+ (NORMAL)
[2022-04-01 07:14] LABS: Poikilocytosis 1+ (NORMAL)
--- NOTE | 2022-04-01 07:18 | P.PNCROSS_ITS ---
Event Note Event Note Event Note: Respiratory therapy called me because the patient was not moving much air on the auto titrating BiPAP. The patient was being noncompliant with the auto titrating BiPAP and was having difficulty sleeping. The patient's daughter tells me that patient frequently does not sleep at night and will often cat nap. States that the patient has some much fluid on her that she has trouble getting comfortable in falling asleep. We switched out the auto titrating BiPAP for IV 60 with a backup rate. Place patient on BiPAP 14/6 with backup rate of 16. Almost immediately after being placed on the BiPAP the patient fell asleep and was resting comfortably. However the patient was difficult to arouse. I ordered a stat ABG since the patient was difficult to arouse and was not following commands for me. I did talk to the patient started she said that her mother often does this especially after she has not slept for a while. She states that she does not think her mom is slept for the last 24 hours since admission. ABG was performed which demonstrated pH of 7.3 and a pCO2 of 58 both the pH was slightly decreased from prior in the pCO2 is slightly increased. But again the patient had not been compliant with the the auto titrating BiPAP. Patient did have better air movement on the V 60 and was pulling tidal volumes between 350 and 440. At this point I feel comfortable leaving the patient on the medical floor but the patient will need monitored for any evidence of fur ther decline. Patient did not have any abdominal respirations at the time of my evaluation. She had no accessory muscle use while on the V 60. Assessment: Chronic hypercapnic respiratory failure. Fluid overload. Plan: As discussed above 30 minutes was spent in critical care activities Due to a high probability of clinically significant, life threatening deterioration, the patient required my highest level of preparedness to intervene emergently and I personally spent this critical care time directly and personally managing the patient. This critical care time included obtaining a history; examining the patient; pulse oximetry; ordering and review of studies; arranging urgent treatment with development of a management plan; evaluation of patient's response to treatment; frequent reassessment; and discussions with other providers. It was exclusive of separately billable procedures and treating other patients and teaching time. Please see Assessment and Plan section and the rest of the note for further information on patient assessment and treatment.
[2022-04-01] MEDS: FLUTICASONE/UMECLIDIN/VILANTER 200-62.5-25 MCG ELLIPTA 1 PUFF INHALATION (07:36)
[2022-04-01] MEDS: METOPROLOL SUCCINATE EXT REL 50 MG TABCR PO (08:22)
[2022-04-01] MEDS: MONTELUKAST SODIUM 10 MG TABLET PO (08:22)
[2022-04-01] MEDS: CLOPIDOGREL BISULFATE 75 MG TABLET PO (08:22)
[2022-04-01] MEDS: PANTOPRAZOLE 40 MG TABLET PO (08:22)
[2022-04-01] MEDS: VERAPAMIL HCL 180 MG TABLET ER 360 MG PO (08:23)
[2022-04-01] MEDS: CYANOCOBALAMIN 1,000 MCG TABLET 2000 MCG PO (08:23)
--- NOTE | 2022-04-01 08:23 | PCOTNOTE ---
Attempted occupational therapy evaluation, daughter present as requested to check back later as patient's breathing is very labored and wants to try BiPAP first. Following.
[2022-04-01] MEDS: FLUTICASONE PROPIONATE 0.05% NA SPR 16 GM BTL (*BKC) 2 SPRAY NASAL (08:24)
[2022-04-01] MEDS: EUCERIN CREAM 120 GM JAR 1 APPLIC TOPICAL (08:28)
[2022-04-01] MEDS: ALPRAZolam (*CRX) 0.5 MG TABLET PO ×2 (08:36→18:29)
[2022-04-01 08:58] LABS: Glucose Point of Care 179 mg/dl (65-105)
[2022-04-01] MEDS: BUMETANIDE 1 MG TABLET 2 MG PO ×2 (10:17→18:24)
[2022-04-01] MEDS: GABAPENTIN 300 MG CAPSULE PO ×2 (10:17→18:24)
[2022-04-01] MEDS: FERROUS SULFATE 324 MG TABLET PO ×2 (10:17→18:24)
--- NOTE | 2022-04-01 11:19 | P.PNNP_ITS ---
Progress Note: A&P Assessment and Plan (1) MARINA (acute kidney injury): Code(s): N17.9 - Acute kidney failure, unspecified Status: Acute Assessment and Plan: * dialysis dependent at this time * was diuretic resistant on recent admission * continue fluid removal. (2) Stage 3b chronic kidney disease: Code(s): N18.32 - Chronic kidney disease, stage 3b Status: Chronic Assessment and Plan: * baseline creatinine runs ~ 1.6 - 2.2mg/dl * likely due to CAD/CHF, vascular disease, diabetes, and age-related change (3) Acute on chronic respiratory failure: Code(s): J96.20 - Acute and chronic respiratory failure, unspecified whether with hypoxia or hypercapnia Status: Acute Assessment and Plan: * multifactorial: * volume overload * asthma/COPD(?) * RAINA/OHS * anemia * Echo looks okay. * fluid removal with HD * Pulmonary consultation * follow respiratory status (4) Hypertension: Code(s): I10 - Essential (primary) hypertension Status: Chronic Assessment and Plan: * running a bit high currently * may improve with fluid removal * Unfortunately she has not been making much urine. * follow trend of hemodynamics * may need further adjustment in medications (5) Anemia: Code(s): D64.9 - Anemia, unspecified Status: Acute Assessment and Plan: * likely due to MARINA, CKD and acute illness * Epogen with HD * hb still in the 8s (6) Type 2 diabetes mellitus with hyperglycemia: Code(s): E11.65 - Type 2 diabetes mellitus with hyperglycemia Status: Chronic Assessment and Plan: * On Accu-Cheks and sliding-scale insulin per hospitalist. Will continue to follow. Subjective Date/time seen: 04/01/22 11:19 Interval history: patient is still short of breath. She has conversational dyspnea. Mild cough unchanged. Fevers or chills. She ate a good breakfast. Review of Systems Cardiovascular: Cardiovascular: Reports no additional cardiovascular complaints Respiratory: Respiratory: Reports no additional respiratory complaints Gastrointestinal: Gastrointestinal: Reports no additional gastrointestinal complaints Genitourinary: Genitourinary: Reports no additional female genitourinary complaints Exam Narrative: WDWN in NAD skin no rash head ncat lungs Decreased breath sounds at the bases, a few crackles. cor reg no rub abd BS+ nontender and soft ext 2+ edema. Objective Data Vital Signs Vital Signs: Vital Signs - 24 hr 03/31/22 11:20 03/31/22 11:40 03/31/22 11:43 Temperature Pulse Rate 83 87 70 Respiratory Rate Blood Pressure 160/110 H 178/82 H 179/83 H Pulse Oximetry Oxygen Delivery Oxygen Flow Rate 03/31/22 11:50 03/31/22 12:00 03/31/22 13:23 Temperature 36.6 C Pulse Rate 68 68 76 Respiratory Rate 20 Blood Pressure 178/84 H Pulse Oximetry 96 Oxygen Delivery Nasal Cannula Oxygen Flow Rate 2 03/31/22 13:23 03/31/22 14:00 03/31/22 16:00 Temperature 36.8 C Pulse Rate 76 67 114 H Respiratory Rate 20 14 Blood Pressure 147/73 H Pulse Oximetry 100
--- NOTE | 2022-04-01 11:19 | PM.PNNEP ---
Progress Note: A&P Assessment and Plan (1) MARINA (acute kidney injury): Code(s): N17.9 - Acute kidney failure, unspecified Status: Acute Assessment and Plan: dialysis dependent at this time was diuretic resistant on recent admission continue fluid removal. (2) Stage 3b chronic kidney disease: Code(s): N18.32 - Chronic kidney disease, stage 3b Status: Chronic Assessment and Plan: baseline creatinine runs ~ 1.6 - 2.2mg/dl likely due to CAD/CHF, vascular disease, diabetes, and age-related change (3) Acute on chronic respiratory failure: Code(s): J96.20 - Acute and chronic respiratory failure, unspecified whether with hypoxia or hypercapnia Status: Acute Assessment and Plan: multifactorial: volume overload asthma/COPD(?) RAINA/OHS anemia Echo looks okay. fluid removal with HD Pulmonary consultation follow respiratory status (4) Hypertension: Code(s): I10 - Essential (primary) hypertension Status: Chronic Assessment and Plan: running a bit high currently may improve with fluid removal Unfortunately she has not been making much urine. follow trend of hemodynamics may need further adjustment in medications (5) Anemia: Code(s): D64.9 - Anemia, unspecified Status: Acute Assessment and Plan: likely due to MARINA, CKD and acute illness Epogen with HD hb still in the 8s (6) Type 2 diabetes mellitus with hyperglycemia: Code(s): E11.65 - Type 2 diabetes mellitus with hyperglycemia Status: Chronic Assessment and Plan: On Accu-Cheks and sliding-scale insulin per hospitalist. Will continue to follow. Subjective Date/time seen: 04/01/22 11:19 Interval history: patient is still short of breath. She has conversational dyspnea. Mild cough unchanged. Fevers or chills. She ate a good breakfast. Review of Systems Cardiovascular: Cardiovascular: Reports no additional cardiovascular complaints Respiratory: Respiratory: Reports no additional respiratory complaints Gastrointestinal: Gastrointestinal: Reports no additional gastrointestinal complaints Genitourinary: Genitourinary: Reports no additional female genitourinary complaints Exam Narrative: WDWN in NAD skin no rash head ncat lungs Decreased breath sounds at the bases, a few crackles. cor reg no rub abd BS+ nontender and soft ext 2+ edema. Objective Data Vital Signs Vital Signs: Vital Signs - 24 hr 03/31/22 11:20 03/31/22 11:40 03/31/22 11:43 Temperature Pulse Rate 83 87 70 Respiratory Rate Blood Pressure 160/110 H 178/82 H 179/83 H Pulse Oximetry Oxygen Delivery Oxygen Flow Rate 03/31/22 11:50 03/31/22 12:00 03/31/22 13:23 Temperature 36.6 C Pulse Rate 68 68 76 Respiratory Rate 20 Blood Pressure 178/84 H Pulse Oximetry 96 Oxygen Delivery Nasal Cannula Oxygen Flow Rate 2 03/31/22 13:23 03/31/22 14:00 03/31/22 16:00 Temperature 36.8 C Pulse Rate 76 67 114 H Respiratory Rate 20 14 Blood Pressure 147/73 H Pulse Oximetry 100 Oxygen Delivery Oxygen Flow Rate 03/31/22 19:33 03/31/22 20:22 03/31/22 20:30 Temperature 36.9 C Pulse Rate 72 80 78 Respiratory Rate 20 16 16 Blood Pressure 152/63 H Pulse Oximetry 99 Oxygen Delivery Oxygen Flow Rate 03/31/22 21:00 03/31/22 21:00 04/01/22 00:00 Temperature Pulse Rate 70 115 H Respiratory Rate Blood Pressure Pulse Oximetry 100 Oxygen Delivery Nasal Cannula Oxygen Flow Rate 3 04/01/22 01:44 04/01/22 04:00 04/01/22 03:00 Temperature Pulse Rate 78 67 78 Respiratory Rate 16 24 H Blood Pressure Pulse Oximetry 97 Oxygen Delivery Nasal Cannula Oxygen Flow Rate 2 04/01/22 03:15 04/01/22 04:11 04/01/22 06:00 Temperature 36.7 C Pulse Rate 78 100 68 Respiratory Rate 24 H 18 22 H Blood Pressure 154/75 H Pulse Oximetr
[2022-04-01 12:44] LABS: Glucose Point of Care 266 mg/dl (65-105)
--- NOTE | 2022-04-01 12:50 | PM.IMPN ---
Progress Note: A&P Assessment and Plan (1) Acute on chronic respiratory failure: Code(s): J96.20 - Acute and chronic respiratory failure, unspecified whether with hypoxia or hypercapnia Status: Acute Assessment and Plan: ED[facility] narrative: Patient presents emergency department from home via EMS for shortness of breath.? Patient states that symptoms have been ongoing since she was discharged from the hospital yesterday.? States that she became more short of breath today and shortness of breath is worse with any ambulation or movement she states he is currently on 2 L nasal cannula and had increased herself to 4 L nasal cannula she also notes increased swelling in her legs.? The patient was recently started on dialysis with last dialysis on Sunday and is scheduled to go to dialysis tomorrow.? She denies any fevers or chills she did note chest pain in route by EMS and was given nitro and has no chest pain at this time.? Patient states she is still does make urine 04/01/2022 interval history: patient with end-stage renal disease was recently started on hemodialysis and was discharged with planning to have dialysis Sunday, and Sunday, as patient was scheduled to have dialysis on 04/01 however patient became short of breath and presented emergency department on 03/31 as patient was volume overloaded, patient states she does urinated once today and had a urine this morning, Patient did have dialysis on 03/31 however still quite short of breath and on BIPAP, there is no significant change her BUN and creatinine rather today her Scr is slightly worse than yesterday, patient will be seen by her weight tester and further recommendation to follow, will continue to monitor, patient daughter is present in the room. (2) DVT of lower extremity (deep venous thrombosis): Code(s): I82.409 - Acute embolism and thrombosis of unspecified deep veins of unspecified lower extremity Status: Acute Assessment and Plan: patient with a DVT treated with a warfarin her INR is 2.4 today will continue to monitor (3) Vqmkz-st-scydzuf kidney injury: Code(s): N17.9 - Acute kidney failure, unspecified; N18.9 - Chronic kidney disease, unspecified Status: Acute Assessment and Plan: patient with acute on chronic kidney disease now on hemodialysis presented with volume overload patient will have dialysis and may need additional dialysis before discharging home, be seen by weight tester further recommendation to follow. (4) Anemia: Code(s): D64.9 - Anemia, unspecified Status: Acute Assessment and Plan: most likely anemia of chronic disease patient received Epogen during dialysis. Subjective Date/time seen: 04/01/22 12:50 ED-HPI narrative: Patient presents emergency department from home via EMS for shortness of breath.? Patient states that symptoms have been ongoing since she was discharged from the hospital yesterday.? States that she became more short of breath today and shortness of breath is worse with any ambulation or movement she states he is currently on 2 L nasal cannula and had increased herself to 4 L nasal cannula she also notes increased swelling in her legs.? The patient was recently started on dialysis with last dialysis on Sunday and is scheduled to go to dialysis tomorrow.? She denies any fevers or chills she did note chest pain in route by EMS and was given nitro and has no chest pain at this time.? Patient states she is still does make urine 04/01/2022 interval history: patient with end-stage renal disease was recently started on hemodialysis and was discharged with planning to have dialysis Sunday, and Sunday, as patient was scheduled to have dialysis on 04/01 however patient became short of breath and presented emergency department on 03/31 as patient was volume overloaded, patient states she does urinated once today and had a urine this morning, Patient did have dialysis on
[2022-04-01] MEDS: INSULIN ASPART (*BKC) 100 UNITS/ML SUB-Q ×2 (13:13→18:20)
--- NOTE | 2022-04-01 14:48 | PCOTNOTE ---
Attempted evaluation for the second time this date. Patient is in dialysis. Following.
[2022-04-01 18:17] LABS: Glucose Point of Care 287 mg/dl (65-105)
[2022-04-01] MEDS: INSULIN GLARGINE (*BKC) 100 UNITS/ML 40 UNITS SUB-Q (20:49)
[2022-04-01 20:51] LABS: Glucose Point of Care 336 mg/dl (65-105)
[2022-04-02] VITALS (30 sets, daily range): BP systolic 105–151; BP diastolic 53–61; PULSE 62–94; RESP 16–29; TEMP 36.3–37; O2SAT 96–100
[2022-04-02] MEDS: IPRATROPIUM BR 0.02% INH SOLN 0.5 MG/2.5 ML VIAL INHALATION ×4 (03:49→19:42)
[2022-04-02] MEDS: LEVOTHYROXINE SODIUM 100 MCG TABLET PO (05:26)
[2022-04-02] MEDS: LEVOTHYROXINE SODIUM 75 MCG TABLET PO (05:26)
[2022-04-02 06:29] LABS: Hematocrit 27.7 % (37.0-47.0); Hemoglobin 7.9 g/dL (12.0-15.0); Mean Corpuscular HGB Conc 28.5 g/dl (32-36); Mean Corpuscular Hemoglobin 23.8 pg (26-34); Mean Corpuscular Volume 83.4 fl (80-100); Mean Platelet Volume 9.4 fl (7.4-10.4); Platelet Count Result 348 k/mm3 (150-375); Red Blood Count 3.32 M/mm3 (4.2-5.4); Red Cell Distribution Width 17.4 % (11.5-14.5); White Blood Count 13.8 K/mm3 (4.5-10.0)
[2022-04-02 06:43] LABS: INR 3.8; Prothrombin Time 36.5 Seconds (11.1-14.7)
[2022-04-02 06:54] LABS: Albumin Level 3.4 g/dL (3.5-5.1); Anion Gap 12 mmol/L (8-16); Blood Urea Nitrogen 59 mg/dL (7-17); Carbon Dioxide 26 mmol/L (22-30); Chloride 96 mmol/L (98-107); Estimated CRCL calculation 19 ml/min; Estimated Glomerular Filt Rate 13; Glucose 252 mg/dL (65-110); Phosphorus 6.1 mg/dL (2.5-4.5); Potassium 4.2 mmol/L (3.4-5.0); Sodium 134 mmol/L (137-145)
[2022-04-02] MEDS: FLUTICASONE PROPIONATE 0.05% NA SPR 16 GM BTL (*BKC) 2 SPRAY NASAL (08:26)
[2022-04-02] MEDS: METOPROLOL SUCCINATE EXT REL 50 MG TABCR PO (08:26)
[2022-04-02] MEDS: VERAPAMIL HCL 180 MG TABLET ER 360 MG PO (08:26)
[2022-04-02] MEDS: ALPRAZolam (*CRX) 0.5 MG TABLET PO (08:26)
[2022-04-02] MEDS: MONTELUKAST SODIUM 10 MG TABLET PO (08:27)
[2022-04-02] MEDS: GABAPENTIN 300 MG CAPSULE PO (08:27)
[2022-04-02] MEDS: FERROUS SULFATE 324 MG TABLET PO (08:27)
[2022-04-02] MEDS: CLOPIDOGREL BISULFATE 75 MG TABLET PO (08:27)
[2022-04-02] MEDS: PANTOPRAZOLE 40 MG TABLET PO (08:27)
[2022-04-02] MEDS: CYANOCOBALAMIN 1,000 MCG TABLET 2000 MCG PO (08:28)
[2022-04-02] MEDS: BUMETANIDE 1 MG TABLET 2 MG PO (08:28)
[2022-04-02] MEDS: EUCERIN CREAM 120 GM JAR 1 APPLIC TOPICAL (08:29)
[2022-04-02 08:56] LABS: Glucose Point of Care 242 mg/dl (65-105)
[2022-04-02] MEDS: INSULIN ASPART (*BKC) 100 UNITS/ML SUB-Q ×2 (09:30→13:04)
--- NOTE | 2022-04-02 10:46 | P.PNNP_ITS ---
Progress Note: A&P Assessment and Plan (1) MARINA (acute kidney injury): Code(s): N17.9 - Acute kidney failure, unspecified Status: Acute Assessment and Plan: * dialysis dependent at this time * was diuretic resistant on recent admission * continue fluid removal. * etiology still unclear. * Reviewing evaluation, immunofixation negative YESSICA negative. Some blood intermittently in the urine and some protein intermittently there as well. Quantitative proteinuria is 880milligrams/gram of creatinine. She did have a low C3 but her albumin is low as well. Renal ultrasound is normal. * Will repeat complements. Consider biopsy. Coumadin is on hold now. Perhaps we should continue this on hold status. INR will need to be lower to do the biopsy. (2) Stage 3b chronic kidney disease: Code(s): N18.32 - Chronic kidney disease, stage 3b Status: Chronic Assessment and Plan: * baseline creatinine runs ~ 1.6 - 2.2mg/dl * likely due to CAD/CHF, vascular disease, diabetes, and age-related change (3) Acute on chronic respiratory failure: Code(s): J96.20 - Acute and chronic respiratory failure, unspecified whether with hypoxia or hypercapnia Status: Acute Assessment and Plan: * multifactorial: * volume overload * asthma/COPD(?) * RAINA/OHS * anemia * Echo looks okay. * fluid removal with HD * Pulmonary consultation . Dr. Zhao consulted. * follow respiratory status (4) Hypertension: Code(s): I10 - Essential (primary) hypertension Status: Chronic Assessment and Plan: * Systolic ranging from 137-151. This seems to have improved as we take fluid off. * Will remove more fluid tomorrow. * may need further adjustment in medications (5) Anemia: Code(s): D64.9 - Anemia, unspecified Status: Acute Assessment and Plan: * likely due to MARINA, CKD and acute illness * Epogen with HD * hb still in the 8s * On antibiotics so no need for iron levels. (6) Type 2 diabetes mellitus with hyperglycemia: Code(s): E11.65 - Type 2 diabetes mellitus with hyperglycemia Status: Chronic Assessment and Plan: * On Accu-Cheks and sliding-scale insulin per hospitalist. Will continue to follow. Subjective Date/time seen: 04/02/22 10:46 Interval history: patient is still short of breath. a little better today. She had dialysis yesterday and they removed 3L. Eating. Exam Narrative: WDWN in NAD skin no rash head ncat lungs Decreased breath sounds at the bases, a few crackles. cor reg no rub opr gallop abd BS+ nontender and soft ext 2+ edema. Objective Data Vital Signs Vital Signs: Vital Signs - 24 hr 04/01/22 13:19 04/01/22 13:48 04/01/22 14:35 Temperature 36.4 C Pulse Rate 65 72 Respiratory Rate 20 22 H Blood Pressure 132/68 Pulse Oximetry 97 Oxygen Delivery Nasal Cannula Oxygen Flow Rate 2 04/01/22 14:35 04/01/22 14:45 04/01/22 15:00 Temperature Pulse Rate 72 63 Respiratory Rate Blood Pressure 135/63 143/70 H Pulse Oximetry Oxygen Delivery Oxygen Flow Rate 3 04/01/22 15:15 04/01/22 15:30 04/01/22 15:45 Temperature Pulse R
--- NOTE | 2022-04-02 10:46 | PM.PNNEP ---
Progress Note: A&P Assessment and Plan (1) MARINA (acute kidney injury): Code(s): N17.9 - Acute kidney failure, unspecified Status: Acute Assessment and Plan: dialysis dependent at this time was diuretic resistant on recent admission continue fluid removal. etiology still unclear. Reviewing evaluation, immunofixation negative YESSICA negative. Some blood intermittently in the urine and some protein intermittently there as well. Quantitative proteinuria is 880milligrams/gram of creatinine. She did have a low C3 but her albumin is low as well. Renal ultrasound is normal. Will repeat complements. Consider biopsy. Coumadin is on hold now. Perhaps we should continue this on hold status. INR will need to be lower to do the biopsy. (2) Stage 3b chronic kidney disease: Code(s): N18.32 - Chronic kidney disease, stage 3b Status: Chronic Assessment and Plan: baseline creatinine runs ~ 1.6 - 2.2mg/dl likely due to CAD/CHF, vascular disease, diabetes, and age-related change (3) Acute on chronic respiratory failure: Code(s): J96.20 - Acute and chronic respiratory failure, unspecified whether with hypoxia or hypercapnia Status: Acute Assessment and Plan: multifactorial: volume overload asthma/COPD(?) RAINA/OHS anemia Echo looks okay. fluid removal with HD Pulmonary consultation . Dr. Zhao consulted. follow respiratory status (4) Hypertension: Code(s): I10 - Essential (primary) hypertension Status: Chronic Assessment and Plan: Systolic ranging from 137-151. This seems to have improved as we take fluid off. Will remove more fluid tomorrow. may need further adjustment in medications (5) Anemia: Code(s): D64.9 - Anemia, unspecified Status: Acute Assessment and Plan: likely due to MARINA, CKD and acute illness Epogen with HD hb still in the 8s On antibiotics so no need for iron levels. (6) Type 2 diabetes mellitus with hyperglycemia: Code(s): E11.65 - Type 2 diabetes mellitus with hyperglycemia Status: Chronic Assessment and Plan: On Accu-Cheks and sliding-scale insulin per hospitalist. Will continue to follow. Subjective Date/time seen: 04/02/22 10:46 Interval history: patient is still short of breath. a little better today. She had dialysis yesterday and they removed 3L. Eating. Exam Narrative: WDWN in NAD skin no rash head ncat lungs Decreased breath sounds at the bases, a few crackles. cor reg no rub opr gallop abd BS+ nontender and soft ext 2+ edema. Objective Data Vital Signs Vital Signs: Vital Signs - 24 hr 04/01/22 13:19 04/01/22 13:48 04/01/22 14:35 Temperature 36.4 C Pulse Rate 65 72 Respiratory Rate 20 22 H Blood Pressure 132/68 Pulse Oximetry 97 Oxygen Delivery Nasal Cannula Oxygen Flow Rate 2 04/01/22 14:35 04/01/22 14:45 04/01/22 15:00 Temperature Pulse Rate 72 63 Respiratory Rate Blood Pressure 135/63 143/70 H Pulse Oximetry Oxygen Delivery Oxygen Flow Rate 3 04/01/22 15:15 04/01/22 15:30 04/01/22 15:45 Temperature Pulse Rate 62 61 62 Respiratory Rate Blood Pressure 140/65 142/66 H 137/71 Pulse Oximetry Oxygen Delivery Oxygen Flow Rate 04/01/22 16:00 04/01/22 16:15 04/01/22 16:30 Temperature Pulse Rate 62 67 65 Respiratory Rate Blood Pressure 154/64 H 149/66 H 149/65 H Pulse Oximetry Oxygen Delivery Oxygen Flow Rate 04/01/22 16:45 04/01/22 17:00 04/01/22 17:15 Temperature Pulse Rate 62 62 69 Respiratory Rate Blood Pressure 156/66 H 159/53 H 140/52 L Pulse Oximetry Oxygen Delivery Oxygen Flow Rate 04/01/22 17:30 04/01/22 17:45 04/01/22 17:55 Temperature 36.5 C Pulse Rate 60 61 68 Respiratory Rate 20 Blood Pressure 151/66 H 139/63 137/65 Pulse Oximetry 97 Oxygen Delivery Oxygen Flow
[2022-04-02 12:48] LABS: Glucose Point of Care 329 mg/dl (65-105)
--- NOTE | 2022-04-02 13:23 | PM.IMPN ---
Progress Note: A&P Assessment and Plan (1) Acute on chronic respiratory failure: Code(s): J96.20 - Acute and chronic respiratory failure, unspecified whether with hypoxia or hypercapnia Status: Acute Assessment and Plan: ED[facility] narrative: Patient presents emergency department from home via EMS for shortness of breath.? Patient states that symptoms have been ongoing since she was discharged from the hospital yesterday.? States that she became more short of breath today and shortness of breath is worse with any ambulation or movement she states he is currently on 2 L nasal cannula and had increased herself to 4 L nasal cannula she also notes increased swelling in her legs.? The patient was recently started on dialysis with last dialysis on Sunday and is scheduled to go to dialysis tomorrow.? She denies any fevers or chills she did note chest pain in route by EMS and was given nitro and has no chest pain at this time.? Patient states she is still does make urine 04/02/2022 interval history: patient with end-stage renal disease was recently started on hemodialysis and was discharged with planning to have dialysis Sunday, and Sunday, as patient was scheduled to have dialysis on 04/01 however patient became short of breath and presented emergency department on 03/31 as patient was volume overloaded, patient states she does urinated once day and had a urineted on 04/01 , Patient did have dialysis on 03/31 however still quite short of breath and on BIPAP, on 04/01 there was no significant change in her BUN and creatinine rather her Scr was slightly worse than 03/31 and patient had a HD on 04/01, patient was seen by her breakfast bar attendant today and want to do renal biopsy tomorrow, however her INR is 3.8, coumadin is on hold, will give 2 untis of FFP tomorrow with dialysis, will continue to monitor, and further recommendation to follow (2) DVT of lower extremity (deep venous thrombosis): Code(s): I82.409 - Acute embolism and thrombosis of unspecified deep veins of unspecified lower extremity Status: Acute Assessment and Plan: patient with a DVT treated with a warfarin her INR is 2.4 today will continue to monitor (3) Tipoc-hq-ioermww kidney injury: Code(s): N17.9 - Acute kidney failure, unspecified; N18.9 - Chronic kidney disease, unspecified Status: Acute Assessment and Plan: patient with acute on chronic kidney disease now on hemodialysis presented with volume overload patient will have dialysis and may need additional dialysis before discharging home, be seen by breakfast bar attendant further recommendation to follow. (4) Anemia: Code(s): D64.9 - Anemia, unspecified Status: Acute Assessment and Plan: most likely anemia of chronic disease patient received Epogen during dialysis. Subjective Date/time seen: 04/02/22 13:23 ED-HPI narrative: Patient presents emergency department from home via EMS for shortness of breath.? Patient states that symptoms have been ongoing since she was discharged from the hospital yesterday.? States that she became more short of breath today and shortness of breath is worse with any ambulation or movement she states he is currently on 2 L nasal cannula and had increased herself to 4 L nasal cannula she also notes increased swelling in her legs.? The patient was recently started on dialysis with last dialysis on Sunday and is scheduled to go to dialysis tomorrow.? She denies any fevers or chills she did note chest pain in route by EMS and was given nitro and has no chest pain at this time.? Patient states she is still does make urine 04/02/2022 interval history: patient with end-stage renal disease was recently started on hemodialysis and was discharged with planning to have dialysis Sunday, and Sunday, as patient was scheduled to have dialysis on 04/01 however patient became short of breath and presented emergency department on 03/31 as patient wa
[2022-04-02 14:33] LABS: Complement C3 95 mg/dL (88-165)
[2022-04-02 15:08] LABS: Alveolar/Arterial O2 Gradient 132.5 mmHg; Fractional Inspired Oxygen 40 %; HCO3 ABG 26.8 mEq/l (22.0-26.0); Oxygen Content ABG 12.9 %vol (16.0-22.0); Oxygen Saturation ABG 93.9 % (95.0-100.0); Oxyhemoglobin 93.8 % THb (90.0-100.0); PO2 ABG 81.2 mmHg (80.0-100.0); PO2 FiO2 Ratio Arterial Blood 2.03 %; Total Hemoglobin 9.7 g/dL (12.0-18.0)
[2022-04-02 15:15] LABS: PCO2 ABG 62.2 mmHg (35.0-45.0); Site Drawn RIGHT BRACHIAL; pH ABG 7.252 (7.350-7.450)
[2022-04-02 15:16] LABS: Device NON-INVASIVE VENT; Modified Allen's Test Pass; Non-Invasive Expiratory Pressure 6 CMH2O; Non-Invasive Inspiratory Pressure 16 CMH2O; Non-Invasive Vent Rate 18 /MIN
--- NOTE | 2022-04-02 15:30 | PM.CNPUL ---
Assessment and Plan Assessment and plan (1) Acute on chronic respiratory failure: Code(s): J96.20 - Acute and chronic respiratory failure, unspecified whether with hypoxia or hypercapnia Status: Acute Assessment and Plan: This 71-year-old female with a long history of congestive heart failure related to left ventricular diastolic dysfunction, chronic kidney disease currently on dialysis, diabetes, morbid obesity, history of asthma was hospitalized early this month with shortness of breath, discharged on home supplemental oxygen and treatment for congestive heart failure and also kidney dialysis, presented with shortness of breath 1 day after discharge home. there has been a significant worsening of her clinical condition with hypercapnic respiratory failure x-rays showing increasing pulmonary edema and bilateral pleural effusions. The patient was placed back on BiPAP support at higher pressures and was transferred to the intensive care unit. Based on the chest x-ray findings of increasing pulmonary edema and pleural effusion these acute on chronic hypercapnic respiratory failure is again related to congestive heart failure pulmonary edema rather than asthma exacerbation. Patient has been on antibiotic. she has no signs to suggest sepsis. I would repeat sputum culture and consider empiric treatment with antibiotics for possible nosocomial pneumonia. The case was discussed with the hospitalist. (2) CHF (congestive heart failure): Code(s): I50.9 - Heart failure, unspecified Status: Acute (3) Chronic renal failure: Code(s): N18.9 - Chronic kidney disease, unspecified Status: Acute (4) Heart failure with preserved ejection fraction: Code(s): I50.30 - Unspecified diastolic (congestive) heart failure Status: Acute (5) Asthma: Code(s): J45.909 - Unspecified asthma, uncomplicated Status: Acute (6) RAINA (obstructive sleep apnea): Code(s): G47.33 - Obstructive sleep apnea (adult) (pediatric) Status: Acute History of Present Illness History of Present Illness Consult date: 04/02/22 Chief complaint: Acute on Chronic Resp Failure,CHF,Chronice Renal F Narrative: This 71-year-old female was admitted to the hospital 2 days ago with shortness of breath. The patient has a long history of limited diastolic dysfunction, recurrent pulmonary edema, chronic pleural effusions diabetes mellitus morbid obesity, history of asthma also history of sleep disorder breathing on no treatment. This consultation report is based on information obtaining after talking to the patient's , hospitalist and also reviewing her chart. She has known history of left ventricular diastolic dysfunction under the care of cardiology services for a number of years. As per cardiology notes she has had left ventricular diastolic dysfunction but no evidence of coronary artery disease or systolic dysfunction. Up until recently she had been on diuretic for chronic lower extremity edema shortness of breath and recurrent pleural effusions. Review of chest x-rays showed that the patient approximately 3 months ago had evidence of pulmonary edema and small pleural effusions bilaterally. over the last 3 months the pleural effusions have increased in size as well as pulmonary edema. The patient has been essentially in an out of the hospital since early February. She was discharged the day prior to this admission on supplemental oxygen 3 liters/minute at night and with activities. The patient return to the hospital the next day with increasing shortness of breath and lower extremity edema. She had no fever or any other symptoms suggestive of respiratory infection. Patient was recently started on dialysis for chronic kidney disease. Her last dialysis was yesterday. Since admission to the hospital the patient has been treated for congestive heart failure and also respiratory failure related to pulmonary edema / pleural
--- NOTE | 2022-04-02 15:51 | PC.NURSE ---
Patient arrived to ICU room 2 at 1528. Report received at bedside by BOB Hayes.
[2022-04-02 16:56] LABS: Alveolar/Arterial O2 Gradient 152.7 mmHg; Base Excess ABG -2.3 mEq/l (+/-2.0); Fractional Inspired Oxygen 40 %; HCO3 ABG 25.3 mEq/l (22.0-26.0); Oxygen Content ABG 11.8 %vol (16.0-22.0); Oxygen Saturation ABG 88.7 % (95.0-100.0); PCO2 ABG 59.1 mmHg (35.0-45.0); PO2 ABG 64.5 mmHg (80.0-100.0); PO2 FiO2 Ratio Arterial Blood 1.61 %; Total Hemoglobin 9.5 g/dL (12.0-18.0)
[2022-04-02 16:57] LABS: Oxyhemoglobin 87.6 % THb (90.0-100.0)
[2022-04-02 16:58] LABS: Device NON-INVASIVE VENT; Modified Allen's Test Pass; Non-Invasive Expiratory Pressure 6 CMH2O; Non-Invasive Inspiratory Pressure 16 CMH2O; Non-Invasive Vent Rate 18 /MIN; Site Drawn LEFT RADIAL
[2022-04-02 18:04] LABS: Glucose Point of Care 320 mg/dl (65-105)
[2022-04-02] MEDS: ETOMIDATE 20 MG/10 ML AMPUL 40 MG IV PUSH (18:16)
[2022-04-02] MEDS: PROPOFOL IV EMULSION 100 ML 3.89 MG IV CONT (18:17)
--- NOTE | 2022-04-02 18:38 | WPDPROCEDUR ---
Procedures Intubation Intubation Date: 04/02/22 Intubation Time: 18:05 A pre-procedural Time-Out was completed immediately before starting the procedure and confirmed: Patient Identification, Site, Procedure, Patient Position and the Availability of Requisite Equipment: Yes Sedative: etomidate Mg given: 40 Laryngoscope: fiber optic video scope Assist device used: fiber optic device ET tube size: 7.5 Tube secured depth (cm): 23 Tube secured location: lips Tube placement confirmation: visualized tube passing through cords, equal breath sounds bilaterally, no breath sounds over epigastrium and confirmation by capnometry Patient tolerated procedure: well Intubation complications: hypoxia Additional comments: Initially the patient was intubated in the CO2 detector did not turn colors. Patient was desatting in her heart rate dropped in the 30s. We removed the ET tube and hyperventilated the patient using back mask. Once her O2 saturation was in the upper 90s we inserted is 7.5 ET tube through the cords that were visualized using a GlideScope. CO2 detector changed colors. Bilateral breath sounds were heard patient remained well oxygenated at 100%. Vent settings were given per the appraisal manager Dr. Stephens. Chest x-ray shows ET tube 2 cm above the domonique
[2022-04-02 20:02] LABS: Alveolar/Arterial O2 Gradient 150.7 mmHg; Base Excess ABG 1.4 mEq/l (+/-2.0); Carboxyhemoglobin 0.2 % THb (0-2.0); Fractional Inspired Oxygen 40 %; HCO3 ABG 25.5 mEq/l (22.0-26.0); Methemoglobin ABG 0.2 %THb (0-1.5); Oxygen Content ABG 12.7 %vol (16.0-22.0); Oxygen Saturation ABG 97.3 % (95.0-100.0); Oxyhemoglobin 96.3 % THb (90.0-100.0); PCO2 ABG 37.9 mmHg (35.0-45.0); PO2 ABG 90.9 mmHg (80.0-100.0); PO2 FiO2 Ratio Arterial Blood 2.27 %; Reduced Hemoglobin 3.3 %THb (0-5.0); Total Hemoglobin 9.3 g/dL (12.0-18.0); pH ABG 7.445 (7.350-7.450)
[2022-04-02 20:08] LABS: Device VENTILATOR; Modified Allen's Test Unable to perform; Site Drawn LEFT RADIAL
[2022-04-02 20:09] LABS: Arterial Blood Gas PEEP 8 cmH2O; Arterial Blood Gas Tidal Volume 450 ml; Arterial Blood Gas Vent Mode CMV; Arterial Blood Gas Ventilator rate 20 /MIN
[2022-04-02] MEDS: INSULIN GLARGINE (*BKC) 100 UNITS/ML 40 UNITS SUB-Q (21:58)
[2022-04-02] MEDS: MINERAL OIL/WHITE PETROLATUM OINTMENT 1 APPLIC EACH EYE (21:59)
[2022-04-03] VITALS (84 sets, daily range): BP systolic 105–158; BP diastolic 49–110; PULSE 57–79; RESP 16–32; TEMP 35–37.6; O2SAT 98–100; BMI 42.1
[2022-04-03] MEDS: PROPOFOL IV EMULSION 100 ML 15.55 MG IV CONT ×3 (00:07→21:05)
[2022-04-03 00:16] LABS: Glucose Point of Care 209 mg/dl (65-105)
[2022-04-03] MEDS: INSULIN ASPART (*BKC) 100 UNITS/ML SUB-Q (00:16)
[2022-04-03] MEDS: IPRATROPIUM BR 0.02% INH SOLN 0.5 MG/2.5 ML VIAL INHALATION ×4 (01:51→20:11)
[2022-04-03 04:50] LABS: Hematocrit 26.3 % (37.0-47.0); Hemoglobin 7.6 g/dL (12.0-15.0); Mean Corpuscular HGB Conc 28.9 g/dl (32-36); Mean Corpuscular Hemoglobin 24.2 pg (26-34); Mean Corpuscular Volume 83.8 fl (80-100); Platelet Count Result 359 k/mm3 (150-375); Red Blood Count 3.14 M/mm3 (4.2-5.4); Red Cell Distribution Width 17.8 % (11.5-14.5); White Blood Count 11.6 K/mm3 (4.5-10.0)
[2022-04-03 04:57] LABS: Magnesium 1.9 mg/dL (1.6-2.3)
[2022-04-03 05:00] LABS: Albumin Level 3.1 g/dL (3.5-5.1); Anion Gap 14 mmol/L (8-16); Blood Urea Nitrogen 70 mg/dL (7-17); Calcium 7.8 mg/dL (8.4-10.2); Carbon Dioxide 26 mmol/L (22-30); Chloride 96 mmol/L (98-107); Estimated CRCL calculation 16 ml/min; Estimated Glomerular Filt Rate 11; Glucose 166 mg/dL (65-110); INR 3.5; Phosphorus 6.1 mg/dL (2.5-4.5); Prothrombin Time 34.1 Seconds (11.1-14.7); Sodium 136 mmol/L (137-145)
[2022-04-03] MEDS: LEVOTHYROXINE SODIUM 75 MCG TABLET PO (05:00)
[2022-04-03] MEDS: LEVOTHYROXINE SODIUM 100 MCG TABLET PO (05:00)
[2022-04-03 05:04] LABS: Alveolar/Arterial O2 Gradient 128.9 mmHg; Base Excess ABG 2.4 mEq/l (+/-2.0); Carboxyhemoglobin 0.3 % THb (0-2.0); Fractional Inspired Oxygen 40 %; HCO3 ABG 28.6 mEq/l (22.0-26.0); Methemoglobin ABG 0.5 %THb (0-1.5); Oxygen Content ABG 11.4 %vol (16.0-22.0); Oxygen Saturation ABG 96.7 % (95.0-100.0); Oxyhemoglobin 96.3 % THb (90.0-100.0); PO2 ABG 94.2 mmHg (80.0-100.0); PO2 FiO2 Ratio Arterial Blood 2.36 %; Reduced Hemoglobin 2.9 %THb (0-5.0); Total Hemoglobin 8.3 g/dL (12.0-18.0); pH ABG 7.342 (7.350-7.450)
[2022-04-03 05:05] LABS: Arterial Blood Gas PEEP 8 cmH2O; Arterial Blood Gas Vent Mode CMV; Arterial Blood Gas Ventilator rate 16 /MIN; Device VENTILATOR; Modified Allen's Test Unable to perform; Site Drawn RIGHT RADIAL
[2022-04-03 05:06] LABS: Arterial Blood Gas Tidal Volume 380 ml
--- NOTE | 2022-04-03 08:19 | PCPTNOTE ---
Pt currently intubated and sedated at this time. Pt will be discharged until pt is appropriate for skilled therapy. RN aware. Will Contacted hospitalist to make aware.
--- NOTE | 2022-04-03 08:22 | PCOTNOTE ---
Pt. unable to participate at this time due to sedation and intubation. Pt. to be D/C from services at this time and re-ordered when medically appropriate for therapy services. Hospitalist contacted without answer. Following. Nursing aware.
[2022-04-03] MEDS: EPOETIN ALFA-EPBX 10,000 UNITS/ML VIAL 10000 UNITS IV PUSH (09:21)
[2022-04-03] MEDS: SODIUM CHLORIDE 0.9% IV 1,000 ML 999 ML IV CONT (09:22)
--- NOTE | 2022-04-03 09:34 | WPDCNINT ---
Assessment and Plan Assessment and plan (1) Acute on chronic respiratory failure: Code(s): J96.20 - Acute and chronic respiratory failure, unspecified whether with hypoxia or hypercapnia Status: Acute Assessment and Plan: Multifactorial acute on chronic respiratory failure secondary to congestive heart failure, restrictive lung disease from obesity hypoventilation, history of asthma, volume overload from kidney disease, large pleural effusions 04/02 Patient was on BiPAP but was intubated due to poor mental status Vent settings and ABG reviewed Chest CT shows There are airspace opacities bilaterally with a dependent predominance, consistent with atelectasis. There are moderate-sized pleural effusions. Patient is getting hemodialysis today to remove fluid Will plan for thoracentesis before trying to wean her from ventilator (2) CHF (congestive heart failure): Code(s): I50.9 - Heart failure, unspecified Status: Acute Assessment and Plan: Hemodialysis to remove Will plan for thoracentesis (3) Chronic renal failure: Code(s): N18.9 - Chronic kidney disease, unspecified Status: Acute (4) Chronic anticoagulation: Code(s): Z79.01 - extermination supervisor (current) use of anticoagulants Status: Acute Assessment and Plan: Patient is on warfarin for AFib and DVT history She needs kidney biopsy hence her Coumadin is being reversed. She is going to get 2 units of FFP which ordered yesterday. I will recheck INR post that and order additional FFP. Depending on INR we may have to overlap her with heparin infusion. Once her INR is reversed I will also request IR to perform thoracentesis for her large effusions which are definitely impacting her respiratory failure Plavix is also on hold for procedures (5) Atrial fibrillation: Code(s): I48.91 - Unspecified atrial fibrillation Status: Chronic Assessment and Plan: Currently in sinus rhythm (6) DVT of lower extremity (deep venous thrombosis): Code(s): I82.409 - Acute embolism and thrombosis of unspecified deep veins of unspecified lower extremity Status: Acute Assessment and Plan: Was diagnosis in 02/20 on left side Currently on anticoagulation (7) Dbfms-nt-sbfvfas kidney injury: Code(s): N17.9 - Acute kidney failure, unspecified; N18.9 - Chronic kidney disease, unspecified Status: Acute Assessment and Plan: Patient is on hemodialysis and has right tunnel catheter Nephrology is following Patient is going to be dialyzed today I have spoken to Dr. Dumont and will try to dialyze her daily to remove more fluid patient is volume overloaded Dr. Dumont will also plan to obtain a kidney biopsy (8) Pleural effusion: Code(s): J90 - Pleural effusion, not elsewhere classified Status: Acute Assessment and Plan: Will plan for thoracentesis tomorrow once her INR is reversed (9) Encephalopathy: Code(s): G93.40 - Encephalopathy, unspecified Status: Acute Assessment and Plan: Patient was unresponsive yesterday and had to be intubated Likely toxic metabolic encephalopathy Her blood glucose and ABG abnormal but would not explain her mental status CT head done and showed IMPRESSION: 1. 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 2. Mild nonspecific cerebral white matter disease, which likely represents chronic small vessel ischemic disease. Patient on so on some medication that would cause sedation including Neurontin tramadol and Xanax which have been discontinued This morning on sedation holiday patient was awake and following commands Continue propofol for mechanical ventilation Check ammonia level (10) Type 2 diabetes mellitus with hyperglycemia: Code(s): E11.65 - Type 2 diabetes mellitus with hyperglycemia Status: Chronic Assessment and Plan: Continue sliding scale insulin Lantus (11) Pericardial effusion: Code(s): I31.39 - Other
--- NOTE | 2022-04-03 09:58 | PM.PNNEP ---
Progress Note: A&P Assessment and Plan (1) MARINA (acute kidney injury): Code(s): N17.9 - Acute kidney failure, unspecified Status: Acute Assessment and Plan: dialysis dependent at this time was diuretic resistant on recent admission continue fluid removal. etiology still unclear. Reviewing evaluation, immunofixation negative YESSICA negative. Some blood intermittently in the urine and some protein intermittently there as well. Quantitative proteinuria is 880milligrams/gram of creatinine. She did have a low C3 but her albumin is low as well. Renal ultrasound is normal. will proceed with biopsy. Discussed with Dr. Casillas. he is giving her FFP. (2) Stage 3b chronic kidney disease: Code(s): N18.32 - Chronic kidney disease, stage 3b Status: Chronic Assessment and Plan: baseline creatinine runs ~ 1.6 - 2.2mg/dl likely due to CAD/CHF, vascular disease, diabetes, and age-related change (3) Acute on chronic respiratory failure: Code(s): J96.20 - Acute and chronic respiratory failure, unspecified whether with hypoxia or hypercapnia Status: Acute Assessment and Plan: multifactorial: volume overload asthma/COPD(?) RAINA/OHS anemia Echo looks okay. Remove more fluid today and will do another treatment tomorrow. (4) Hypertension: Code(s): I10 - Essential (primary) hypertension Status: Chronic Assessment and Plan: Blood pressure is better. Intubation might have reduced venous return. Verapamil held. Continue to remove fluid (5) Anemia: Code(s): D64.9 - Anemia, unspecified Status: Acute Assessment and Plan: likely due to MARINA, CKD and acute illness getting Epogen. (6) Type 2 diabetes mellitus with hyperglycemia: Code(s): E11.65 - Type 2 diabetes mellitus with hyperglycemia Status: Chronic Assessment and Plan: On Accu-Cheks and sliding-scale insulin per hospitalist. Will continue to follow. Subjective Date/time seen: 04/03/22 07:00 Interval history: Patient became more short of breath last night and was intubated. Currently off her sedative for an hour or so and slowly waking up. She looks comfortable on the ventilator. She is going to get dialysis soon Exam Narrative: WDWN in NAD on the ventilator. skin no rash head ncat lungs Coarse breath sounds bilaterally cor reg no rub or gallop abd BS+ nontender and soft ext 2+ edema. Objective Data Vital Signs Vital Signs: Vital Signs - 24 hr 04/02/22 15:00 04/02/22 10:01 04/02/22 10:09 Temperature Pulse Rate 86 70 69 Respiratory Rate 21 H 20 19 Blood Pressure Pulse Oximetry 96 Oxygen Delivery BiPAP Fraction of Inspired Oxygen 04/02/22 15:28 04/02/22 15:28 04/02/22 16:00 Temperature 36.3 C L 36.4 C L Pulse Rate 68 67 Respiratory Rate 18 18 Blood Pressure 124/60 119/58 L Pulse Oximetry 100 98 99 Oxygen Delivery BiPAP Fraction of Inspired Oxygen 04/02/22 18:17 04/02/22 18:24 04/02/22 18:37 Temperature Pulse Rate 70 70 Respiratory Rate 29 H Blood Pressure Pulse Oximetry 100 Oxygen Delivery Mechanical Ventilation Fraction of Inspired Oxygen 50 50 04/02/22 18:00 04/02/22 18:20 04/02/22 18:23 Temperature Pulse Rate 67 68 Respiratory Rate 18 17 Blood Pressure 132/59 L Pulse Oximetry 98 Oxygen Delivery Fraction of Inspired Oxygen 50 04/02/22 18:29 04/02/22 18:50 04/02/22 13:50 Temperature Pulse Rate 66 63 69 Respiratory Rate 20 20 22 H Blood Pressure Pulse Oximetry Oxygen Delivery Fraction of Inspired Oxygen 04/02/22 14:00 04/02/22 10:01 04/02/22 16:00 Temperature Pulse Rate 71 70 67 Respiratory Rate 22 H Blood Pressure Pulse Oximetry 97 Oxygen Delivery BiPAP Fraction of Inspired Oxygen 30 04/02/22 19:36 04/02/22 19:36 04/02/22 19:42 Temperature Pulse Rate 63 6
--- NOTE | 2022-04-03 10:14 | PM.PNPUL ---
Progress Note: A&P Assessment and Plan (1) Acute on chronic respiratory failure: Code(s): J96.20 - Acute and chronic respiratory failure, unspecified whether with hypoxia or hypercapnia Status: Acute Assessment and Plan: This 71-year-old female with a long history of congestive heart failure related to left ventricular diastolic dysfunction, chronic kidney disease currently on dialysis, ? diabetes, morbid obesity,? history of asthma was hospitalized early this month with shortness of breath, discharged on home supplemental oxygen and? treatment for congestive heart failure and also? kidney dialysis, presented with shortness of breath 1 day after discharge home. there has been a significant worsening of her clinical condition with hypercapnic respiratory failure x-rays showing increasing pulmonary edema and bilateral pleural effusions.? The patient was placed back on BiPAP support at higher pressures and was transferred to the intensive care unit where she was intubated. she has been hemodynamically stable undergoing hemodialysis. Chest CT showed large pleural effusions bilaterally with lung congestion. No clear-cut evidence of new infiltrates to suggest nosocomial pneumonia.? Plan: The patient will remain intubated on mechanical ventilation at this point. daily hemodialysis is planned to remove fluid. Thoracentesis will also be considered as discussed with the forestry hunter. consider surveillance sputum culture. (2) CHF (congestive heart failure): Code(s): I50.9 - Heart failure, unspecified Status: Acute (3) Heart failure with preserved ejection fraction: Code(s): I50.30 - Unspecified diastolic (congestive) heart failure Status: Acute (4) Gpeyi-yf-atkvlaw kidney injury: Code(s): N17.9 - Acute kidney failure, unspecified; N18.9 - Chronic kidney disease, unspecified Status: Acute (5) Asthma: Code(s): J45.909 - Unspecified asthma, uncomplicated Status: Acute (6) RAINA (obstructive sleep apnea): Code(s): G47.33 - Obstructive sleep apnea (adult) (pediatric) Status: Acute Subjective Date/time seen: 04/03/22 10:14 Patient was transferred to the intensive care unit last night. few hours after transfer to the intensive care unit the patient was intubated and mechanically ventilated. She remains on mechanical ventilation, fully sedated this a.m. while undergoing hemodialysis. She has been hemodynamically stable. Has undergone chest CT earlier today Review of Systems Review of Systems: ROS unobtainable: Yes unobtainable due to endotracheal tube, unobtainable due to medical condition and unobtainable due to mental status Exam Narrative: GENERAL APPEARANCE: Well developed, well nourished, fully sedated on mechanical ventilation SKIN: Inspection of the skin reveals no rashes, ulcerations or petechiae. HEENT: Sclerae anicteric and conjunctivae pink and moist. CHEST: Normal AP diameter and normal contour without any kyphoscoliosis. LUNGS: Auscultation of the lungs revealed clear lungs upper chest anteriorly, decreased breath sounds right lateral chest CARDIAC: There was a regular rate and rhythm without any murmurs ABDOMEN: obese. soft and nontender. LYMPH NODES: No lymphadenopathy was appreciated in the neck. EXTREMITIES: No cyanosis, clubbing. chronic stasis dermatitis changes in lower extremity, 1+ pedal edema NEUROLOGIC: patient fully sedated Objective Data Vital Signs Vital Signs: Vital Signs - 24 hr 04/02/22 15:00 04/02/22 15:28 04/02/22 15:28 Temperature 36.3 C L Pulse Rate 86 68 Respiratory Rate 21 H 18 Blood Pressure 124/60 Pulse Oximetry 96 100 98 Oxygen Delivery BiPAP BiPAP Fraction of Inspired Oxygen 04/02/22 16:00 04/02/22 18:17 04/02/22 18:24 Temperature 36.4 C L Pulse Rate 67 70 Respiratory Rate 18 29 H Blood Pressure 119/58 L Pulse Oximetry 99 Oxygen Delivery Fraction of Inspired Oxygen 50
--- NOTE | 2022-04-03 10:55 | PCFNICU ---
ICU Rounding Note: Pt current nutrition is Vital 1.2 @ goal rate 65 ml with 30 ml H2O flushes q 4 hours. Nutrition recommendation: Add Adam flushes BID for Stage II to buttocks Last recorded weight is 125.8 kg. Bowel Motility: +BM 04/02 Labs Reviewed: Hgb 8.5, Hct 28.1, Na 149, BUN 52, Glu 198 Meds Noted: Ativan Skin: Stage II pressure injury to buttocks Additional Notes: Agree with current tube feeding order. Add Adam flushes BID Following daily in ICU rounds. Monitoring labs, tolerance, stool pattern, meds, skin, plan of care. Follow daily in ICU rounds.
[2022-04-03] MEDS: SODIUM CHLORIDE 0.9% IV 250 ML 30 ML IV CONT ×2 (11:37)
[2022-04-03 11:42] LABS: Ammonia < 9 umol/L (9-30)
[2022-04-03 12:01] LABS: Glucose Point of Care 137 mg/dl (65-105)
[2022-04-03] MEDS: FERROUS SULFATE 324 MG TABLET PO ×2 (13:42→17:15)
[2022-04-03] MEDS: CYANOCOBALAMIN 1,000 MCG TABLET 2000 MCG PO (13:44)
[2022-04-03] MEDS: MINERAL OIL/WHITE PETROLATUM OINTMENT 1 APPLIC EACH EYE ×2 (13:45→20:58)
[2022-04-03] MEDS: EUCERIN CREAM 120 GM JAR 1 APPLIC TOPICAL (13:46)
[2022-04-03] MEDS: MONTELUKAST SODIUM 10 MG TABLET PO (13:47)
[2022-04-03 14:27] LABS: INR 2.3; Prothrombin Time 24.6 Seconds (11.1-14.7)
[2022-04-03 15:06] LABS: Appearance Urine Turbid (Clear); Bilirubin Urine 1+ (Negative); Blood Urine 1+ (Negative); Glucose Urine UA Negative (Negative); Ketones Urine Negative (Negative); Leukocyte Esterase Ur 1+ LEU/UL (NEGATIVE); Nitrate Urine Negative (Negative); Protein Urine 1+ mg/dL (Negative); Specific Grav Ur >= 1.030 (1.001-1.035); Urobilinogen Urine 0.2 mg/dL (<2.0); pH Urine 5.5 (5.0-9.0)
[2022-04-03 15:14] LABS: Add Urine Microscopic? YES; Color Urine Dark Yellow (Yellow)
[2022-04-03 15:15] LABS: Amorphous Sediment Urine Few; Bacteria Urine Trace /hpf; Budding Yeast Urine Present /hpf; Hyaline Casts Urine 50+ /lpf; Mucus Urine Few /lpf; RBC Urine >75 /hpf (0-2); Squamous Epithelial Cell Urine Many /hpf (Few); WBC Clumps Urine Present /HPF; WBC Urine >75 /hpf (0-3)
[2022-04-03] MEDS: FLUCONAZOLE 150 MG TABLET FEED TUBE (16:02)
[2022-04-03 17:17] LABS: Glucose Point of Care 154 mg/dl (65-105)
[2022-04-03] MEDS: INSULIN GLARGINE (*BKC) 100 UNITS/ML 40 UNITS SUB-Q (20:57)
[2022-04-03 20:59] LABS: Glucose Point of Care 208 mg/dl (65-105)
[2022-04-04] VITALS (96 sets, daily range): BP systolic 110–155; BP diastolic 46–69; PULSE 66–79; RESP 16–273; TEMP 0–37.9; O2SAT 94–100
[2022-04-04] LABS: Glucose Point of Care 200 mg/dl (65-105)
--- NOTE | 2022-04-04 | ECHO_ITS ---
Patient Info Name: Gregoria Rae Age: 71 years : 1950 Gender: Female Ht: 68 in Wt: 277 lbs BSA: 2.52 m2 HR: 81 bpm BP: 134 / 62 mmHg Heart Rhythm: Sinus Rhythm Exam Date: 04/04/2022 12:30 PM Exam Location: [facility] Patient Status: Inpatient Admit Date: 04/01/2022 Staff Ordering Physician: Devyn Casillas MD Box Repairer: Julio C Bales RDCS Attending Provider: Gwen Jaimes DO Exam Type: CA echo dop color flow w con Study Info Indications - pericardial effusion Complete two-dimensional, color flow and Doppler transthoracic echocardiogram is performed. Contrast/Agitated Saline Contrast/Ag. Saline: Definity Amount: 2.00 ml Administered By: Julio C Bales RDCS Existing IV Access: Yes IV Access Condition: patent with no signs of infiltration Summary 1. Complete two-dimensional, color flow and Doppler transthoracic echocardiogram is performed. 2. Left ventricular systolic function is normal, estimated at 60-65%. 3. There is mildly increased left ventricular wall thickness. 4. The left ventricular diastolic function is grade II diastolic dysfunction. 5. Right ventricular systolic function is normal. 6. There is mild mitral valve regurgitation. 7. There is mild to moderate tricuspid valve regurgitation. 8. Dilated inferior vena cava with no collapse upon inspiration consistent with elevated right atrial pressure, 15 mmHg. 9. There is a large left pleural effusion. 10. There is small posterior pericardial effusion. Left Ventricle Left ventricular chamber dimension is normal. Left ventricular systolic function is normal, estimated at 60-65%. There is mildly increased left ventricular wall thickness. The left ventricular diastolic function is grade II diastolic dysfunction. Right Ventricle Right ventricular chamber dimension is normal. Right ventricular systolic function is normal. Left Atria Left atrial chamber dimension is normal. Right Atria Right atrial chamber dimension is normal. Atrial Septum Intact interatrial septum visualized by color flow imaging. Aortic Valve The aortic valve is trileaflet. There is no aortic valve stenosis. There is no aortic valve regurgitation. There is mild aortic valve calcification. Pulmonic Valve The pulmonic valve is not well visualized. Mitral Valve The mitral valve has thickened leaflets. There is no mitral valve stenosis. There is mild mitral valve regurgitation. The mitral valve annulus is moderately calcified. Tricuspid Valve The tricuspid valve leaflets are normal. There is no significant tricuspid valve stenosis. There is mild to moderate tricuspid valve regurgitation. Pericardium/Pleural There is a large left pleural effusion. There is small posterior pericardial effusion. Inferior Vena Cava Dilated inferior vena cava with no collapse upon inspiration consistent with elevated right atrial pressure, 15 mmHg. Aorta The aortic root size at the sinus of Valsalva is normal. Left Ventricular Outflow Tract Name Value Normal LVOT 2D LVOT Diameter 1.97 cm LVOT Doppler
[2022-04-04] MEDS: PROPOFOL IV EMULSION 100 ML 27.22 MG IV CONT ×2 (01:37→14:09)
[2022-04-04] MEDS: IPRATROPIUM BR 0.02% INH SOLN 0.5 MG/2.5 ML VIAL INHALATION ×4 (02:01→20:01)
[2022-04-04 04:36] LABS: INR 2.1; Prothrombin Time 23.2 Seconds (11.1-14.7)
[2022-04-04 04:50] LABS: Albumin Level 3.1 g/dL (3.5-5.1); Anion Gap 8 mmol/L (8-16); Blood Urea Nitrogen 45 mg/dL (7-17); Calcium 7.9 mg/dL (8.4-10.2); Carbon Dioxide 28 mmol/L (22-30); Chloride 97 mmol/L (98-107); Estimated CRCL calculation 23 ml/min; Estimated Glomerular Filt Rate 17; Glucose 187 mg/dL (65-110); Magnesium 1.8 mg/dL (1.6-2.3); Phosphorus 3.9 mg/dL (2.5-4.5); Potassium 3.9 mmol/L (3.4-5.0); Sodium 133 mmol/L (137-145)
[2022-04-04] MEDS: LEVOTHYROXINE SODIUM 100 MCG TABLET PO (05:00)
[2022-04-04] MEDS: LEVOTHYROXINE SODIUM 75 MCG TABLET PO (05:00)
[2022-04-04 05:26] LABS: Hematocrit 24.6 % (37.0-47.0); Hemoglobin 7.2 g/dL (12.0-15.0); Mean Corpuscular HGB Conc 29.3 g/dl (32-36); Mean Corpuscular Hemoglobin 24.4 pg (26-34); Mean Corpuscular Volume 83.4 fl (80-100); Mean Platelet Volume 10.2 fl (7.4-10.4); Platelet Count Result 354 k/mm3 (150-375); Red Blood Count 2.95 M/mm3 (4.2-5.4); Red Cell Distribution Width 17.5 % (11.5-14.5); White Blood Count 11.7 K/mm3 (4.5-10.0)
[2022-04-04] MEDS: PROPOFOL IV EMULSION 100 ML 23.33 MG IV CONT ×3 (05:31→21:20)
[2022-04-04 05:37] LABS: Base Excess ABG 2.9 mEq/l (+/-2.0); Carboxyhemoglobin 0.2 % THb (0-2.0); Fractional Inspired Oxygen 40 %; Methemoglobin ABG 0.1 %THb (0-1.5); Oxygen Saturation ABG 97.2 % (95.0-100.0); PCO2 ABG 46.4 mmHg (35.0-45.0); PO2 ABG 94.8 mmHg (80.0-100.0); PO2 FiO2 Ratio Arterial Blood 2.37 %; Reduced Hemoglobin 3.7 %THb (0-5.0); pH ABG 7.399 (7.350-7.450)
[2022-04-04 05:38] LABS: Device VENTILATOR; Modified Allen's Test Pass; Site Drawn LEFT RADIAL
[2022-04-04 05:39] LABS: Arterial Blood Gas PEEP 8 cmH2O; Arterial Blood Gas Tidal Volume 380 ml; Arterial Blood Gas Vent Mode CMV; Arterial Blood Gas Ventilator rate 16 /MIN
--- NOTE | 2022-04-04 07:27 | PM.PNNEP ---
Progress Note: A&P Assessment and Plan (1) MARINA (acute kidney injury): Code(s): N17.9 - Acute kidney failure, unspecified Status: Acute Assessment and Plan: dialysis dependent at this time was diuretic resistant on recent admission continue fluid removal. etiology still unclear. Biopsy ordered. radiology is asking plavix be stopped and it was held after dose on 04/02. discussed with Dr Casillas. (2) Stage 3b chronic kidney disease: Code(s): N18.32 - Chronic kidney disease, stage 3b Status: Chronic Assessment and Plan: baseline creatinine runs ~ 1.6 - 2.2mg/dl likely due to CAD/CHF, vascular disease, diabetes, and age-related change (3) Acute on chronic respiratory failure: Code(s): J96.20 - Acute and chronic respiratory failure, unspecified whether with hypoxia or hypercapnia Status: Acute Assessment and Plan: multifactorial: volume overload asthma/COPD(?) RAINA/OHS anemia Echo looks okay. Remove more fluid today and continue daily treatments as long as fluid is coming off. (4) Hypertension: Code(s): I10 - Essential (primary) hypertension Status: Chronic Assessment and Plan: Blood pressure is better. Intubation might have reduced venous return. Verapamil held. Continue to remove fluid (5) Anemia: Code(s): D64.9 - Anemia, unspecified Status: Acute Assessment and Plan: likely due to MARINA, CKD and acute illness getting Epogen. (6) Type 2 diabetes mellitus with hyperglycemia: Code(s): E11.65 - Type 2 diabetes mellitus with hyperglycemia Status: Chronic Assessment and Plan: On Accu-Cheks and sliding-scale insulin per hospitalist. Will continue to follow. Subjective Date/time seen: 04/04/22 07:27 Interval history: 04/03 Patient became more short of breath last night and was intubated. Currently off her sedative for an hour or so and slowly waking up. She looks comfortable on the ventilator. She is going to get dialysis soon 04/04 The patient is on the ventilator. She is on propofol. She has just been hooked up to dialysis. She is on dry ultrafiltration and tolerating this well. She was seen at 7:00 a.m. The patient is going to get a kidney biopsy today. I talked with Gwen her daughter at length about the risks benefits alternatives and process of the biopsy and she agrees to proceed. Exam Narrative: WDWN in NAD sedated and on the ventilator. skin no rash or subQ nodules head ncat lungs Coarse breath sounds bilaterally cor reg no rub or gallop abd BS+ nontender and soft ext 2+ edema. Objective Data Vital Signs Vital Signs: Vital Signs - 24 hr 04/03/22 08:49 04/03/22 09:03 04/03/22 09:09 Temperature Pulse Rate 65 60 58 L Respiratory Rate 18 16 Blood Pressure Pulse Oximetry 100 Oxygen Delivery Mechanical Ventilation Fraction of Inspired Oxygen 40 04/03/22 08:58 04/03/22 08:35 04/03/22 08:35 Temperature 36.6 C Pulse Rate 59 L 61 Respiratory Rate 17 Blood Pressure 119/58 L 156/110 H Pulse Oximetry 100 Oxygen Delivery Fraction of Inspired Oxygen 40 04/03/22 09:15 04/03/22 09:30 04/03/22 09:37 Temperature 36.6 C Pulse Rate 59 L 60 60 Respiratory Rate 16 Blood Pressure 105/54 L 107/53 L 107/53 L Pulse Oximetry 100 Oxygen Delivery Fraction of Inspired Oxygen 04/03/22 09:56 04/03/22 09:45 04/03/22 10:00 Temperature 36.4 C L Pulse Rate 63 61 62 Respiratory Rate 16 Blood Pressure 109/56 L 109/56 L 111/57 L Pulse Oximetry 100 Oxygen Delivery Fraction of Inspired Oxygen 04/03/22 10:15 04/03/22 10:31 04/03/22 10:45 Temperature Pulse Rate 64 64 63 Respiratory Rate Blood Pressure 122/59 L 126/63 128/61 Pulse Oximetry Oxygen Delivery Fraction of Inspired Oxygen 04/03/22 11:00 04/03/22 11:15 04/03/22 11:30 Temperature Pul
[2022-04-04] MEDS: MAGNESIUM SULF 2 GM/WATER 50ML 2 GM/50 ML BAG IVPB (08:28)
[2022-04-04] MEDS: SODIUM CHLORIDE 0.9% IV 1,000 ML 999 ML IV CONT ×2 (08:41→08:42)
--- NOTE | 2022-04-04 09:13 | PM.PNPUL ---
Progress Note: A&P Assessment and Plan (1) Acute on chronic respiratory failure: Code(s): J96.20 - Acute and chronic respiratory failure, unspecified whether with hypoxia or hypercapnia Status: Acute Assessment and Plan: This 71-year-old female with a long history of congestive heart failure related to left ventricular diastolic dysfunction, chronic kidney disease currently on dialysis, ? diabetes, morbid obesity,? history of asthma was hospitalized early this month with shortness of breath, discharged on home supplemental oxygen and? treatment for congestive heart failure and also? kidney dialysis, presented with shortness of breath 1 day after discharge home. there has been a significant worsening of her clinical condition with hypercapnic respiratory failure and x-rays showing increasing pulmonary edema and bilateral pleural effusions.? The patient was placed back on BiPAP support at higher pressures and was transferred to the intensive care unit where she was intubated. Since transfer to ICU, she has been hemodynamically stable undergoing hemodialysis. She has been on 40% FiO2 along with PEEP. today's chest x-ray showed a pulmonary edema and bilateral pleural effusions with essentially no improvement over the last 24 hours. Patient is afebrile, off antibiotics. Sputum culture pending. ? Plan: respiratory status essentially unchanged over the last 24 hours. daily hemodialysis to remove fluid. Thoracentesis will also be considered as discussed with the glue line operator. Await sputum culture. (2) CHF (congestive heart failure): Code(s): I50.9 - Heart failure, unspecified Status: Acute (3) Heart failure with preserved ejection fraction: Code(s): I50.30 - Unspecified diastolic (congestive) heart failure Status: Acute (4) Kvljr-zf-ahhkeev kidney injury: Code(s): N17.9 - Acute kidney failure, unspecified; N18.9 - Chronic kidney disease, unspecified Status: Acute (5) Asthma: Code(s): J45.909 - Unspecified asthma, uncomplicated Status: Acute (6) RAINA (obstructive sleep apnea): Code(s): G47.33 - Obstructive sleep apnea (adult) (pediatric) Status: Acute Subjective Date/time seen: 04/04/22 09:13 respiratory status unchanged while the patient is intubated and fully sedated on mechanical ventilation. Afebrile off antibiotics. Undergoing daily dialysis with fluid removal she had 3.5 L of fluid removed yesterday. FiO2 remaining at 40% with no evidence of hypercapnia and some a improvement of oxygenation by blood gases today. Overall hemodynamically stable. Review of Systems Review of Systems: ROS unobtainable: Yes unobtainable due to endotracheal tube, unobtainable due to medical condition and unobtainable due to mental status Exam Narrative: GENERAL APPEARANCE: Well developed, well nourished, fully sedated on mechanical ventilation SKIN: Inspection of the skin reveals no rashes, ulcerations or petechiae. HEENT: Sclerae anicteric and conjunctivae pink and moist. CHEST: Normal AP diameter and normal contour without any kyphoscoliosis. LUNGS: Auscultation of the lungs revealed clear lungs upper chest anteriorly, decreased breath sounds right lateral chest CARDIAC: There was a regular rate and rhythm without any murmurs ABDOMEN: obese. soft and nontender. LYMPH NODES: No lymphadenopathy was appreciated in the neck. EXTREMITIES: No cyanosis, clubbing. chronic stasis dermatitis changes in lower extremity, 1+ pedal edema NEUROLOGIC: patient fully sedated Objective Data Vital Signs Vital Signs: Vital Signs - 24 hr 04/03/22 09:15 04/03/22 09:30 04/03/22 09:37 Temperature 36.6 C Pulse Rate 59 L 60 60 Respiratory Rate 16 Blood Pressure 105/54 L 107/53 L 107/53 L Pulse Oximetry 100 Oxygen Delivery Fraction of Inspired Oxygen 04/03/22 09:56 04/03/22 09:45 04/03/22 10:00 Temperature 36.4 C L Pulse Rate 63 61 62 Respiratory Rate 16
[2022-04-04] MEDS: SODIUM CHLORIDE 0.9% IV 250 ML 30 ML IV CONT (09:59)
[2022-04-04] MEDS: PANTOPRAZOLE SODIUM IV 40 MG VIAL IV PUSH (10:35)
[2022-04-04] MEDS: MONTELUKAST SODIUM 10 MG TABLET PO (10:36)
[2022-04-04] MEDS: EUCERIN CREAM 120 GM JAR 1 APPLIC TOPICAL (10:36)
[2022-04-04] MEDS: MINERAL OIL/WHITE PETROLATUM OINTMENT 1 APPLIC EACH EYE ×2 (10:37→21:19)
[2022-04-04] MEDS: CYANOCOBALAMIN 1,000 MCG TABLET 2000 MCG PO (10:37)
[2022-04-04] MEDS: FERROUS SULFATE 324 MG TABLET PO ×2 (10:38→16:41)
--- NOTE | 2022-04-04 10:47 | WPDINTPN ---
Progress Note: A&P Assessment and Plan (1) Acute on chronic respiratory failure: Code(s): J96.20 - Acute and chronic respiratory failure, unspecified whether with hypoxia or hypercapnia Status: Acute Assessment and Plan: Multifactorial acute on chronic respiratory failure secondary to congestive heart failure, restrictive lung disease from obesity hypoventilation, history of asthma, volume overload from kidney disease, large pleural effusions 04/02 Patient was on BiPAP but was intubated due to poor mental status Vent settings and ABG reviewed Chest CT shows There are airspace opacities bilaterally with a dependent predominance, consistent with atelectasis. There are moderate-sized pleural effusions. Patient is getting hemodialysis today to remove fluid Patient received hemodialysis yesterday, is getting another session today plan to dialyze again tomorrow Plan to thoracentesis on 1 side today and on the other side tomorrow to remove pleural fluid Will attempt weaning trial once a reasonable amount of fluid has been removed as patient is grossly volume overloaded (2) CHF (congestive heart failure): Code(s): I50.9 - Heart failure, unspecified Status: Acute Assessment and Plan: Hemodialysis to remove Thoracentesis request (3) Ugywv-fh-etrrabc kidney injury: Code(s): N17.9 - Acute kidney failure, unspecified; N18.9 - Chronic kidney disease, unspecified Status: Acute Assessment and Plan: Patient is on hemodialysis and has right tunnel catheter Nephrology is following Patient is going to be dialyzed daily for few days to remove fluid I have discussed case with Dr. Julia Dumont has requested a kidney biopsy but that will be done on 04/07 patient was on Plavix and IR requested to wait 5 days after holding Plavix (4) Chronic anticoagulation: Code(s): Z79.01 - USP (current) use of anticoagulants Status: Acute Assessment and Plan: Patient is on warfarin for AFib and DVT history She needs kidney biopsy hence her Coumadin is being reversed. She was also on FFP and IR physician is requesting that she be off of Plavix for 5 days to minimize risk of bleeding for biopsy. She received 4 units of FFP yesterday and is getting 2 more units this morning. To try to target INR less than 1.7 for thoracentesis Will overlap with acting anticoagulation once INR is subtherapeutic until she gets all the procedures done Plavix is also on hold for procedures (5) Atrial fibrillation: Code(s): I48.91 - Unspecified atrial fibrillation Status: Chronic Assessment and Plan: Currently in sinus rhythm On anticoagulation as above (6) DVT of lower extremity (deep venous thrombosis): Code(s): I82.409 - Acute embolism and thrombosis of unspecified deep veins of unspecified lower extremity Status: Acute Assessment and Plan: Was diagnosis in 02/20 on left side Currently on anticoagulation as above (7) Pleural effusion: Code(s): J90 - Pleural effusion, not elsewhere classified Status: Acute Assessment and Plan: Consulted IR for ultrasound-guided Thoracentesis (8) Encephalopathy: Code(s): G93.40 - Encephalopathy, unspecified Status: Acute Assessment and Plan: Patient was unresponsive yesterday and had to be intubated Likely toxic metabolic encephalopathy Her blood glucose and ABG abnormal but would not explain her mental status CT head done and showed IMPRESSION: 1. 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 2. Mild nonspecific cerebral white matter disease, which likely represents chronic small vessel ischemic disease. Patient on so on some medication that would cause sedation including Neurontin tramadol and Xanax which have been discontinued Now on sedation holiday patient was awake and following commands Continue propofol for mechanical ventilation Normal ammonia level (9) Type 2 diabetes mellitus with hyp
[2022-04-04 11:14] LABS: RNP Antibodies <1.0
--- NOTE | 2022-04-04 11:27 | PCNFU ---
Nutrition Follow-Up Complete: Inadequate oral intake related to NPO, mechanical ventilation as evidenced by need for full tube feeding Goal: Meet estimated protein energy needs Patient is progressing towards goal. We will continue current goal. Pt current nutrition is Nepro at 30ml/hr . Last recorded weight is 122.7 kg. Bowel Motility:No BM reported. Labs Reviewed:Cr 2.8,Alb 3.1,GFR 17, BUN 45. Hgb 7.2,Hct 24.6 Meds Noted: Coumadin, Ferrous Sulfate, Lantus, NovoLog, Propofol, Protonix, Synthroid, B12 Skin: WNL Additional Notes: Patient current with mechanical vent. Tube feedings of Nepro at 30 ml/hr. Propofol infusion at 23.33 ml/hr providing an additional 616 kcals. Protein Modular of Prosource TF TID for additional 240 kcals and 60 gms protein. Total kcal intake 2044 kcals/113 gms protein/479 ml water. Flush 30 ml q 4hours. Agree with diet orders at this time. Monitoring labs, tolerance, stool pattern, meds, skin, plan of care every Sunday and Sunday. Follow daily in ICU rounds
[2022-04-04 12:17] LABS: Glucose Point of Care 237 mg/dl (65-105)
[2022-04-04] MEDS: INSULIN ASPART (*BKC) 100 UNITS/ML SUB-Q ×2 (12:17→18:29)
[2022-04-04] MEDS: PERFLUTREN LIPID MICROSPHERES 1.5 ML VIAL DILUTED TO 10 ML TOTAL VOLUME IV PUSH (13:00)
[2022-04-04] MEDS: SODIUM CHLORIDE 0.9% IV 250 ML 30 ML (13:00)
[2022-04-04] MEDS: PROPOFOL IV EMULSION 100 ML 19.44 MG IV CONT (17:28)
[2022-04-04 17:42] LABS: INR 1.7; Prothrombin Time 19.7 Seconds (11.1-14.7)
[2022-04-04 20:11] LABS: Glucose Point of Care 197 mg/dl (65-105)
[2022-04-04 21:01] LABS: Glucose Point of Care 211 mg/dl (65-105)
[2022-04-04] MEDS: INSULIN GLARGINE (*BKC) 100 UNITS/ML 40 UNITS SUB-Q (21:19)
[2022-04-04] MEDS: CEFDINIR 300 MG CAPSULE PO (21:25)
[2022-04-05] VITALS (55 sets, daily range): BP systolic 116–167; BP diastolic 48–63; PULSE 64–88; RESP 12–32; TEMP 36.4–38.7; O2SAT 96–100
[2022-04-05 00:39] LABS: Glucose Point of Care 216 mg/dl (65-105)
[2022-04-05] MEDS: INSULIN ASPART (*BKC) 100 UNITS/ML SUB-Q ×4 (00:41→23:56)
[2022-04-05] MEDS: PROPOFOL IV EMULSION 100 ML 27.22 MG IV CONT ×4 (01:08→16:36)
[2022-04-05] MEDS: IPRATROPIUM BR 0.02% INH SOLN 0.5 MG/2.5 ML VIAL INHALATION ×4 (02:24→20:30)
[2022-04-05 04:50] LABS: Albumin Level 3.3 g/dL (3.5-5.1); Anion Gap 8 mmol/L (8-16); Blood Urea Nitrogen 63 mg/dL (7-17); Calcium 7.7 mg/dL (8.4-10.2); Carbon Dioxide 27 mmol/L (22-30); Chloride 94 mmol/L (98-107); Estimated CRCL calculation 22 ml/min; Estimated Glomerular Filt Rate 16; Glucose 194 mg/dL (65-110); Magnesium 2.3 mg/dL (1.6-2.3); Phosphorus 5.1 mg/dL (2.5-4.5); Potassium 4.3 mmol/L (3.4-5.0); Sodium 129 mmol/L (137-145); Triglycerides 120 mg/dL (<150)
[2022-04-05 05:06] LABS: Hematocrit 26.1 % (37.0-47.0); Hemoglobin 7.6 g/dL (12.0-15.0); Mean Corpuscular HGB Conc 29.1 g/dl (32-36); Mean Corpuscular Hemoglobin 24.4 pg (26-34); Mean Corpuscular Volume 83.7 fl (80-100); Mean Platelet Volume 9.9 fl (7.4-10.4); Platelet Count Result 352 k/mm3 (150-375); Red Blood Count 3.12 M/mm3 (4.2-5.4); Red Cell Distribution Width 17.6 % (11.5-14.5); White Blood Count 10.9 K/mm3 (4.5-10.0)
[2022-04-05 05:11] LABS: Alveolar/Arterial O2 Gradient 136.4 mmHg; Base Excess ABG 3.9 mEq/l (+/-2.0); Carboxyhemoglobin 0.3 % THb (0-2.0); Fractional Inspired Oxygen 40 %; HCO3 ABG 29.6 mEq/l (22.0-26.0); Methemoglobin ABG 0.1 %THb (0-1.5); Oxygen Content ABG 13.4 %vol (16.0-22.0); Oxygen Saturation ABG 96.8 % (95.0-100.0); Oxyhemoglobin 95.5 % THb (90.0-100.0); PO2 ABG 91.3 mmHg (80.0-100.0); PO2 FiO2 Ratio Arterial Blood 2.28 %; Reduced Hemoglobin 4.1 %THb (0-5.0); Total Hemoglobin 9.9 g/dL (12.0-18.0)
[2022-04-05 05:12] LABS: Device VENTILATOR; Modified Allen's Test Pass; Site Drawn RIGHT RADIAL
[2022-04-05] MEDS: LEVOTHYROXINE SODIUM 100 MCG TABLET PO (05:12)
[2022-04-05 05:13] LABS: Arterial Blood Gas PEEP 8 cmH2O; Arterial Blood Gas Tidal Volume 380 ml; Arterial Blood Gas Vent Mode CMV; Arterial Blood Gas Ventilator rate 16 /MIN
[2022-04-05] MEDS: LEVOTHYROXINE SODIUM 75 MCG TABLET PO (05:13)
[2022-04-05 05:29] LABS: INR 1.8; Prothrombin Time 19.9 Seconds (11.1-14.7)
[2022-04-05] MEDS: PANTOPRAZOLE SODIUM IV 40 MG VIAL IV PUSH (08:24)
[2022-04-05] MEDS: FERROUS SULFATE 324 MG TABLET PO ×2 (08:24→16:36)
[2022-04-05] MEDS: MINERAL OIL/WHITE PETROLATUM OINTMENT 1 APPLIC EACH EYE ×2 (08:24→20:21)
[2022-04-05] MEDS: MONTELUKAST SODIUM 10 MG TABLET PO (08:24)
[2022-04-05] MEDS: CYANOCOBALAMIN 1,000 MCG TABLET 2000 MCG PO (08:24)
[2022-04-05] MEDS: EUCERIN CREAM 120 GM JAR 1 APPLIC TOPICAL (08:24)
--- NOTE | 2022-04-05 08:31 | P.PNNP_ITS ---
Progress Note: A&P Assessment and Plan (1) MARINA (acute kidney injury): Code(s): N17.9 - Acute kidney failure, unspecified Status: Acute Assessment and Plan: * dialysis dependent at this time * was diuretic resistant on recent admission * continue fluid removal. * etiology still unclear. * Biopsy ordered. awaiting an appropriate INR to do this. * radiology is asking plavix be stopped and it was held after dose on 04/02. * To get dialysis later today. I talked with the dialysis nurse. (2) Stage 3b chronic kidney disease: Code(s): N18.32 - Chronic kidney disease, stage 3b Status: Chronic Assessment and Plan: * baseline creatinine runs ~ 1.6 - 2.2mg/dl * likely due to CAD/CHF, vascular disease, diabetes, and age-related change (3) Acute on chronic respiratory failure: Code(s): J96.20 - Acute and chronic respiratory failure, unspecified whether with hypoxia or hypercapnia Status: Acute Assessment and Plan: * multifactorial: * volume overload * asthma/COPD(?) * RAINA/OHS * anemia * Echo looks okay. * Remove more fluid today and continue daily treatments as long as fluid is coming off. (4) Hypertension: Code(s): I10 - Essential (primary) hypertension Status: Chronic Assessment and Plan: * Blood pressure is better. * Systolic blood pressure running around 120 * Verapamil held. * Continue to remove fluid (5) Anemia: Code(s): D64.9 - Anemia, unspecified Status: Acute Assessment and Plan: * likely due to MARINA, CKD and acute illness * getting Epogen. (6) Type 2 diabetes mellitus with hyperglycemia: Code(s): E11.65 - Type 2 diabetes mellitus with hyperglycemia Status: Chronic Assessment and Plan: * On Accu-Cheks and sliding-scale insulin per hospitalist. Will continue to follow. Subjective Date/time seen: 04/05/22 08:31 Interval history: 04/03 Patient became more short of breath last night and was intubated. Currently off her sedative for an hour or so and slowly waking up. She looks comfortable on the ventilator. She is going to get dialysis soon 04/04 The patient is on the ventilator. She is on propofol. She has just been hooked up to dialysis. She is on dry ultrafiltration and t olerating this well. She was seen at 7:00 a.m. The patient is going to get a kidney biopsy today. I talked with Gwen her daughter at length about the risks benefits alternatives and process of the biopsy and she agrees to proceed. 04/05 Patient is on the ventilator and sedated. She looks comfortable. To get dialysis later today. Exam Narrative: WDWN in NAD sedated and on the ventilator. skin no rash or subQ nodules head ncat lungs Coarse breath sounds On auscultation cor reg no rub or gallop abd BS+ nontender and soft ext 2+ edema. Objective Data Vital Signs Vital Signs: Vital Signs - 24 hr 04/04/22 08:45 04/04/22 09:00 04/04/22 09:15 Temperature Pulse Rate 76 75 72 Respiratory Rate Blood Pressure 136/62 131/56 L 127/56 L Pulse Oximetry Oxygen Delivery Fraction of Inspired Oxygen 04/04/22 09:30 04/04/22 09:40 04/04/22 09:42 Temperature 36.5 C 36.5 C Pulse Rate 70 70 70 Respiratory Rate 20 20 Blood P
--- NOTE | 2022-04-05 08:31 | PM.PNNEP ---
Progress Note: A&P Assessment and Plan (1) MARINA (acute kidney injury): Code(s): N17.9 - Acute kidney failure, unspecified Status: Acute Assessment and Plan: dialysis dependent at this time was diuretic resistant on recent admission continue fluid removal. etiology still unclear. Biopsy ordered. awaiting an appropriate INR to do this. radiology is asking plavix be stopped and it was held after dose on 04/02. To get dialysis later today. I talked with the dialysis nurse. (2) Stage 3b chronic kidney disease: Code(s): N18.32 - Chronic kidney disease, stage 3b Status: Chronic Assessment and Plan: baseline creatinine runs ~ 1.6 - 2.2mg/dl likely due to CAD/CHF, vascular disease, diabetes, and age-related change (3) Acute on chronic respiratory failure: Code(s): J96.20 - Acute and chronic respiratory failure, unspecified whether with hypoxia or hypercapnia Status: Acute Assessment and Plan: multifactorial: volume overload asthma/COPD(?) RAINA/OHS anemia Echo looks okay. Remove more fluid today and continue daily treatments as long as fluid is coming off. (4) Hypertension: Code(s): I10 - Essential (primary) hypertension Status: Chronic Assessment and Plan: Blood pressure is better. Systolic blood pressure running around 120 Verapamil held. Continue to remove fluid (5) Anemia: Code(s): D64.9 - Anemia, unspecified Status: Acute Assessment and Plan: likely due to MARINA, CKD and acute illness getting Epogen. (6) Type 2 diabetes mellitus with hyperglycemia: Code(s): E11.65 - Type 2 diabetes mellitus with hyperglycemia Status: Chronic Assessment and Plan: On Accu-Cheks and sliding-scale insulin per hospitalist. Will continue to follow. Subjective Date/time seen: 04/05/22 08:31 Interval history: 04/03 Patient became more short of breath last night and was intubated. Currently off her sedative for an hour or so and slowly waking up. She looks comfortable on the ventilator. She is going to get dialysis soon 04/04 The patient is on the ventilator. She is on propofol. She has just been hooked up to dialysis. She is on dry ultrafiltration and tolerating this well. She was seen at 7:00 a.m. The patient is going to get a kidney biopsy today. I talked with Gwen her daughter at length about the risks benefits alternatives and process of the biopsy and she agrees to proceed. 04/05 Patient is on the ventilator and sedated. She looks comfortable. To get dialysis later today. Exam Narrative: WDWN in NAD sedated and on the ventilator. skin no rash or subQ nodules head ncat lungs Coarse breath sounds On auscultation cor reg no rub or gallop abd BS+ nontender and soft ext 2+ edema. Objective Data Vital Signs Vital Signs: Vital Signs - 24 hr 04/04/22 08:45 04/04/22 09:00 04/04/22 09:15 Temperature Pulse Rate 76 75 72 Respiratory Rate Blood Pressure 136/62 131/56 L 127/56 L Pulse Oximetry Oxygen Delivery Fraction of Inspired Oxygen 04/04/22 09:30 04/04/22 09:40 04/04/22 09:42 Temperature 36.5 C 36.5 C Pulse Rate 70 70 70 Respiratory Rate 20 20 Blood Pressure 121/61 118/47 L 118/47 L Pulse Oximetry 100 100 Oxygen Delivery Fraction of Inspired Oxygen 04/04/22 09:49 04/04/22 10:08 04/04/22 10:22 Temperature 36.6 C Pulse Rate 71 71 71 Respiratory Rate 16 16 19 Blood Pressure 110/51 L Pulse Oximetry 100 Oxygen Delivery Fraction of Inspired Oxygen 04/04/22 10:38 04/04/22 10:00 04/04/22 11:00 Temperature 36.6 C Pulse Rate 72 69 71 Respiratory Rate 18 Blood Pressure 110/51 L Pulse Oximetry 100 100 Oxygen Delivery Mechanical Ventilation Fraction of Inspired Oxygen 40 04/04/22 08:45 04/04/22 08:46 04/04/22 09:00 Temperature 36.6 C 36.6 C 36.5 C Pulse Rate 76
--- NOTE | 2022-04-05 09:16 | PM.PNPUL ---
Progress Note: A&P Assessment and Plan (1) Acute on chronic respiratory failure: Code(s): J96.20 - Acute and chronic respiratory failure, unspecified whether with hypoxia or hypercapnia Status: Acute Assessment and Plan: This 71-year-old female with a long history of congestive heart failure related to left ventricular diastolic dysfunction, chronic kidney disease currently on dialysis, ? diabetes, morbid obesity,? history of asthma was hospitalized early this month with shortness of breath, discharged on home supplemental oxygen and? treatment for congestive heart failure and also? kidney dialysis, presented with shortness of breath 1 day after discharge home. there has been a significant worsening of her clinical condition with hypercapnic respiratory failure and x-rays showing increasing pulmonary edema and bilateral pleural effusions.? The patient was placed back on BiPAP support at higher pressures and was transferred to the intensive care unit where she is still intubated. Since transfer to ICU, she has been hemodynamically stable undergoing hemodialysis. FiO2 is down to 30% today peep remains at 8 cm. Chest x-ray showed no significant ion exchange operator the last 24 hours. She continues to have bilateral pleural effusions and lung infiltrates more on right. She has no signs of nosocomial pneumonia. Sputum culture pending. Plan: respiratory status essentially unchanged over the last 24 hours. daily hemodialysis to remove fluid. Thoracentesis will also be considered as discussed with the damage prevention coordinator. Await sputum culture. (2) CHF (congestive heart failure): Code(s): I50.9 - Heart failure, unspecified Status: Acute (3) Heart failure with preserved ejection fraction: Code(s): I50.30 - Unspecified diastolic (congestive) heart failure Status: Acute (4) [id number] kidney injury: Code(s): N17.9 - Acute kidney failure, unspecified; N18.9 - Chronic kidney disease, unspecified Status: Acute (5) Asthma: Code(s): J45.909 - Unspecified asthma, uncomplicated Status: Acute (6) RAINA (obstructive sleep apnea): Code(s): G47.33 - Obstructive sleep apnea (adult) (pediatric) Status: Acute Subjective Date/time seen: 04/05/22 09:16 Patient remains intubated fully sedated on mechanical ventilation. Afebrile, hemodynamically stable. FiO2 decreased down to 30%, peep remaining at 8 cm water pressure. No change in bronchial secretions sputum culture pending. Review of Systems Review of Systems: ROS unobtainable: Yes unobtainable due to endotracheal tube, unobtainable due to medical condition and unobtainable due to mental status Exam Narrative: GENERAL APPEARANCE: Well developed, well nourished, fully sedated on mechanical ventilation SKIN: Inspection of the skin reveals no rashes, ulcerations or petechiae. HEENT: Sclerae anicteric and conjunctivae pink and moist. CHEST: Normal AP diameter and normal contour without any kyphoscoliosis. LUNGS: Auscultation of the lungs revealed clear lungs upper chest anteriorly, decreased breath sounds right lateral chest CARDIAC: There was a regular rate and rhythm without any murmurs ABDOMEN: obese. soft and nontender. LYMPH NODES: No lymphadenopathy was appreciated in the neck. EXTREMITIES: No cyanosis, clubbing. chronic stasis dermatitis changes in lower extremity, No edema NEUROLOGIC: patient fully sedated Objective Data Vital Signs Vital Signs: Vital Signs - 24 hr 04/04/22 09:30 04/04/22 09:40 04/04/22 09:42 Temperature 36.5 C 36.5 C Pulse Rate 70 70 70 Respiratory Rate 20 20 Blood Pressure 121/61 118/47 L 118/47 L Pulse Oximetry 100 100 Oxygen Delivery Fraction of Inspired Oxygen 04/04/22 09:49 04/04/22 10:08 04/04/22 10:22 Temperature 36.6 C Pulse Rate 71 71 71 Respiratory Rate 16 16 19 Blood Pressure 110/51 L Pulse Oximetry 100 Oxygen Delivery Fraction of Inspired Oxygen
--- NOTE | 2022-04-05 11:24 | PCFNICU ---
ICU Rounding Note: Pt current nutrition is Nepro at 30 ml/hr. Nutrition recommendation: Recommend increasing to 35 ml/hr. Last recorded weight is 115 kg. Bowel Motility: No BM reported, Miralax started. Labs Reviewed:Cr 2.9,BUN 63, Glu 194, Hct 26.1,Hgb 7.6,Alb 3.3 Meds Noted:Coumadin, Ferrous Sulfate, Miralax, Propofol at 30 pyd=480 kcals, Coumadin,Lantus, NovoLog, Protonix, Synthroid, B12 Skin: WNL Additional Notes: Patient remains on mechanical vent and tube feedings of Nepro currently at 30 ml/hr. Protein Modular of Prosource TID giving patient an additional 240 kcals and 60 gms protein daily. Recommend tube feedings to be increased to 35 ml/hr due to decrease of propofol infusion. Thoracentesis 04/04 removed 1000 ml of fluid. Dialysis today. Agree with diet orders. Following daily in ICU rounds. Monitoring labs, tolerance, stool pattern, meds, skin, plan of care. Follow daily in ICU rounds.
--- NOTE | 2022-04-05 11:29 | WPDINTPN ---
Progress Note: A&P Assessment and Plan (1) Acute on chronic respiratory failure: Code(s): J96.20 - Acute and chronic respiratory failure, unspecified whether with hypoxia or hypercapnia Status: Acute Assessment and Plan: Multifactorial acute on chronic respiratory failure secondary to congestive heart failure, restrictive lung disease from obesity hypoventilation, history of asthma, volume overload from kidney disease, large pleural effusions 04/02 Patient was on BiPAP but was intubated due to poor mental status Vent settings and ABG reviewed Chest CT shows There are airspace opacities bilaterally with a dependent predominance, consistent with atelectasis. There are moderate-sized pleural effusions. Patient is getting hemodialysis today to remove fluid Patient received hemodialysis on 04/03, 04/04, and is going to get dialyzed again today on 04/05 -04/04/2022: Left-sided thoracenteses with 1000 mL of fluid removal which was done by IR -today the right-sided thoracentesis will be done by IR (2) CHF (congestive heart failure): Code(s): I50.9 - Heart failure, unspecified Status: Acute Assessment and Plan: Hemodialysis for fluid removal -left thoracentesis done on 04/04 -right thoracentesis to be done today on 04/05 (3) [id number] kidney injury: Code(s): N17.9 - Acute kidney failure, unspecified; N18.9 - Chronic kidney disease, unspecified Status: Acute Assessment and Plan: Patient is on hemodialysis and has right tunnel catheter Nephrology is following Patient is going to be dialyzed daily for few days to remove fluid Dr. Dumont has requested a kidney biopsy but that will be done on 04/07 patient was on Plavix and IR requested to wait 5 days after holding Plavix (4) Chronic anticoagulation: Code(s): Z79.01 - detention (current) use of anticoagulants Status: Acute Assessment and Plan: Patient is on warfarin for AFib and DVT history She needs kidney biopsy hence her Coumadin is being reversed. She was also received FFP and IR physician is requesting that she be off of Plavix for 5 days to minimize risk of bleeding for biopsy. She received 4 units of FFP on 04/03 and 2 units of FFP on 04/04. -INR 1.8 this more -Will overlap with short-acting acting anticoagulation once INR is subtherapeutic until she gets all the procedures done -Plavix is also on hold for procedures (5) Atrial fibrillation: Code(s): I48.91 - Unspecified atrial fibrillation Status: Chronic Assessment and Plan: Currently in sinus rhythm Anticoagulation on hold for now for the procedures (6) DVT of lower extremity (deep venous thrombosis): Code(s): I82.409 - Acute embolism and thrombosis of unspecified deep veins of unspecified lower extremity Status: Acute Assessment and Plan: 02/20/2022 lower extremity venous Dopplers: Occlusive appearing DVT in the distal left femoral vein and left popliteal vein Currently off anticoagulation due to procedure -will restart once procedures are done, patient may have to be bridged with heparin infusion (7) Pleural effusion: Code(s): J90 - Pleural effusion, not elsewhere classified Status: Acute Assessment and Plan: Left-sided thoracentesis was done on 04/04 -right-sided thoracentesis to be done today on 04/05 (8) Encephalopathy: Code(s): G93.40 - Encephalopathy, unspecified Status: Acute Assessment and Plan: Patient was unresponsive on 04/02 and had to be intubated Likely toxic metabolic encephalopathy Her blood glucose and ABG abnormal but would not explain her mental status CT head done and showed IMPRESSION: 1. 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 2. Mild nonspecific cerebral white matter disease, which likely represents chronic small vessel ischemic disease. Patient on so on some medication that would cause sedation including Neurontin tramadol and Xanax which have b
[2022-04-05 11:56] LABS: Glucose Point of Care 202 mg/dl (65-105)
[2022-04-05] MEDS: EPOETIN ALFA-EPBX 10,000 UNITS/ML VIAL 10000 UNITS IV PUSH (12:08)
[2022-04-05] MEDS: SODIUM CHLORIDE 0.9% IV 1,000 ML 999 ML IV CONT ×2 (12:10→12:11)
[2022-04-05] MEDS: HEPARIN SODIUM 1,000 UNITS/ML VIAL 5000 UNITS (12:17)
[2022-04-05] MEDS: PROPOFOL IV EMULSION 100 ML 23.33 MG IV CONT (13:20)
[2022-04-05] MEDS: FLUCONAZOLE 200 MG/NACL 100 ML 200 MG/100 ML BAG 100 MG IVPB (15:02)
[2022-04-05] MEDS: polyethylene glycoL 3350 17 GM POWD.PACK PO (15:02)
[2022-04-05 18:11] LABS: Glucose Point of Care 201 mg/dl (65-105)
[2022-04-05] MEDS: PROPOFOL IV EMULSION 100 ML 31.1 MG IV CONT ×2 (20:19→22:54)
[2022-04-05] MEDS: INSULIN GLARGINE (*BKC) 100 UNITS/ML 40 UNITS SUB-Q (20:20)
[2022-04-05 20:32] LABS: Glucose Point of Care 201 mg/dl (65-105)
[2022-04-05 21:06] LABS: ANCA Screen Negative (Negative)
[2022-04-06] VITALS (57 sets, daily range): BP systolic 99–163; BP diastolic 43–68; PULSE 57–95; RESP 16–28; TEMP 36–38.3; O2SAT 96–100
[2022-04-06 00:01] LABS: Glucose Point of Care 245 mg/dl (65-105)
[2022-04-06] MEDS: PROPOFOL IV EMULSION 100 ML 31.1 MG IV CONT (02:20)
[2022-04-06] MEDS: IPRATROPIUM BR 0.02% INH SOLN 0.5 MG/2.5 ML VIAL INHALATION ×4 (02:30→20:42)
[2022-04-06 04:21] LABS: Hematocrit 27.3 % (37.0-47.0); Hemoglobin 7.8 g/dL (12.0-15.0); Mean Corpuscular HGB Conc 28.6 g/dl (32-36); Mean Corpuscular Hemoglobin 23.6 pg (26-34); Mean Corpuscular Volume 82.5 fl (80-100); Mean Platelet Volume 10.1 fl (7.4-10.4); Platelet Count Result 403 k/mm3 (150-375); Red Blood Count 3.31 M/mm3 (4.2-5.4); Red Cell Distribution Width 17.6 % (11.5-14.5); White Blood Count 11.7 K/mm3 (4.5-10.0)
[2022-04-06 04:28] LABS: Alanine Aminotransferase 17 U/L (6-35); Albumin Level 3.2 g/dL (3.5-5.1); Alkaline Phosphatase 120 U/L (38-126); Anion Gap 8 mmol/L (8-16); Aspartate Amino Transferase 23 U/L (14-36); Bilirubin,Total 0.5 mg/dL (0.2-1.3); Blood Urea Nitrogen 48 mg/dL (7-17); Calcium 7.6 mg/dL (8.4-10.2); Carbon Dioxide 29 mmol/L (22-30); Chloride 93 mmol/L (98-107); Estimated CRCL calculation 29 ml/min; Estimated Glomerular Filt Rate 23; Glucose 249 mg/dL (65-110); Phosphorus 3.4 mg/dL (2.5-4.5); Sodium 130 mmol/L (137-145)
[2022-04-06 04:36] LABS: INR 1.8; Prothrombin Time 19.8 Seconds (11.1-14.7)
[2022-04-06] MEDS: PROPOFOL IV EMULSION 100 ML 27.22 MG IV CONT (05:49)
[2022-04-06] MEDS: INSULIN ASPART (*BKC) 100 UNITS/ML SUB-Q ×4 (05:51→23:43)
[2022-04-06] MEDS: LEVOTHYROXINE SODIUM 75 MCG TABLET PO (05:52)
[2022-04-06] MEDS: LEVOTHYROXINE SODIUM 100 MCG TABLET PO (05:52)
[2022-04-06 06:28] LABS: Glucose Point of Care 274 mg/dl (65-105)
[2022-04-06 06:43] LABS: Alveolar/Arterial O2 Gradient 63.9 mmHg; Base Excess ABG 6.2 mEq/l (+/-2.0); Carboxyhemoglobin 0.2 % THb (0-2.0); Fractional Inspired Oxygen 30 %; HCO3 ABG 31.7 mEq/l (22.0-26.0); Methemoglobin ABG 0.2 %THb (0-1.5); Oxygen Content ABG 11.8 %vol (16.0-22.0); Oxygen Saturation ABG 96.8 % (95.0-100.0); Oxyhemoglobin 95.6 % THb (90.0-100.0); PCO2 ABG 51.3 mmHg (35.0-45.0); PO2 ABG 89.7 mmHg (80.0-100.0); PO2 FiO2 Ratio Arterial Blood 2.99 %; Total Hemoglobin 8.7 g/dL (12.0-18.0); pH ABG 7.409 (7.350-7.450)
[2022-04-06 06:45] LABS: Device VENTILATOR; Site Drawn RIGHT BRACHIAL
[2022-04-06 06:46] LABS: Arterial Blood Gas PEEP 8 cmH2O; Arterial Blood Gas Tidal Volume 380 ml; Arterial Blood Gas Vent Mode CMV; Arterial Blood Gas Ventilator rate 16 /MIN
[2022-04-06] MEDS: FERROUS SULFATE 324 MG TABLET PO ×2 (08:12→17:38)
[2022-04-06] MEDS: MONTELUKAST SODIUM 10 MG TABLET PO (08:12)
[2022-04-06] MEDS: PANTOPRAZOLE SODIUM IV 40 MG VIAL IV PUSH (08:12)
[2022-04-06] MEDS: CYANOCOBALAMIN 1,000 MCG TABLET 2000 MCG PO (08:12)
[2022-04-06] MEDS: polyethylene glycoL 3350 17 GM POWD.PACK PO (08:12)
[2022-04-06] MEDS: INSULIN GLARGINE (*BKC) 100 UNITS/ML SUB-Q (08:24)
[2022-04-06] MEDS: MINERAL OIL/WHITE PETROLATUM OINTMENT 1 APPLIC EACH EYE ×2 (08:24→20:05)
[2022-04-06] MEDS: PROPOFOL IV EMULSION 100 ML 23.33 MG IV CONT ×3 (08:44→22:23)
--- NOTE | 2022-04-06 09:49 | WPDINTPN ---
Progress Note: A&P Assessment and Plan (1) Acute on chronic respiratory failure: Code(s): J96.20 - Acute and chronic respiratory failure, unspecified whether with hypoxia or hypercapnia Status: Acute Assessment and Plan: Multifactorial acute on chronic respiratory failure secondary to congestive heart failure, restrictive lung disease from obesity hypoventilation, history of asthma, volume overload from kidney disease, large pleural effusions 04/02 Patient was on BiPAP but was intubated due to poor mental status Vent settings and ABG reviewed 04/03: Chest CT shows There are airspace opacities bilaterally with a dependent predominance, consistent with atelectasis. There are moderate-sized pleural effusions. Patient is getting hemodialysis today to remove fluid Patient received hemodialysis on 04/03, 04/04, 04/05 -04/04/2022: Left-sided thoracenteses with 1000 mL of fluid removal which was done by IR -04/05/2022: Right thoracentesis with 950 ml of fluid removal by IR CXR this morning shows: Diffuse lung disease with interval improvement, consistent with pneumonia and/or pulmonary edema. Cardiomegaly. Small pleural effusions. (2) CHF (congestive heart failure): Code(s): I50.9 - Heart failure, unspecified Status: Acute Assessment and Plan: Hemodialysis for fluid removal -left thoracentesis done on 04/04 -right thoracentesis done on 04/05 (3) Igtgs-wo-ctefhqq kidney injury: Code(s): N17.9 - Acute kidney failure, unspecified; N18.9 - Chronic kidney disease, unspecified Status: Acute Assessment and Plan: Patient is on hemodialysis and has right tunnel catheter Nephrology is following Patient is going to be dialyzed daily for few days to remove fluid Dr. Dumont has requested a kidney biopsy but that will be done on 04/07 patient was on Plavix and IR requested to wait 5 days after holding Plavix (4) Chronic anticoagulation: Code(s): Z79.01 - urban planner (current) use of anticoagulants Status: Acute Assessment and Plan: Patient is on warfarin for AFib and DVT history She needs kidney biopsy hence her Coumadin is being reversed. She was also received FFP and IR physician is requesting that she be off of Plavix for 5 days to minimize risk of bleeding for biopsy. She received 4 units of FFP on 04/03 and 2 units of FFP on 04/04. -INR 1.8 this morning -Will overlap with short-acting acting anticoagulation once INR is subtherapeutic until she gets all the procedures done -Plavix is also on hold for procedures (5) Atrial fibrillation: Code(s): I48.91 - Unspecified atrial fibrillation Status: Chronic Assessment and Plan: Currently in sinus rhythm Anticoagulation on hold for now for the procedures (6) DVT of lower extremity (deep venous thrombosis): Code(s): I82.409 - Acute embolism and thrombosis of unspecified deep veins of unspecified lower extremity Status: Acute Assessment and Plan: 02/20/2022 lower extremity venous Dopplers: Occlusive appearing DVT in the distal left femoral vein and left popliteal vein Currently off anticoagulation due to procedure -will restart once procedures are done, patient may have to be bridged with heparin infusion (7) Pleural effusion: Code(s): J90 - Pleural effusion, not elsewhere classified Status: Acute Assessment and Plan: Left-sided thoracentesis was done on 04/04 -right-sided thoracentesis done on 04/05 (8) Encephalopathy: Code(s): G93.40 - Encephalopathy, unspecified Status: Acute Assessment and Plan: Patient was unresponsive on 04/02 and had to be intubated Likely toxic metabolic encephalopathy Her blood glucose and ABG abnormal but would not explain her mental status CT head done and showed IMPRESSION: 1. 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 2. Mild nonspecific cerebral white matter disease, which likely represents chronic small vessel ischemic
--- NOTE | 2022-04-06 11:17 | PCFNICU ---
ICU Rounding Note: Pt current nutrition is Nepro at 35 ml/hr. Last recorded weight is 117.3 kg. Bowel Motility: No BM reported, miralax has started. Labs Reviewed:Glu 249, GFR 23, BUN 48, Cr 2.10,Na 130, Hct 27.3,Hgb 7.8,Alb 3.2 Meds Noted:Coumadin, Ferrous Sulfate, Miralax, Propofol at 35 yyd=277 kcals, Coumadin,Lantus, NovoLog, Protonix, Synthroid, B12 Skin: WNL Additional Notes: Patient remains on mechanical vent and tube feedings of Nepro at 35 ml/hr and tolerating. Protein Modular of Prosource TID for an additional 240 kcals and 60 gms protein. Thoracentesis performed 04/05 removing 950 ml of fluid. Dialysis today. Agree with diet orders. Following daily in ICU rounds. Monitoring labs, tolerance, stool pattern, meds, skin, plan of care every Sunday and Sunday.
[2022-04-06] MEDS: FLUCONAZOLE 200 MG/NACL 100 ML 200 MG/100 ML BAG 100 MG IVPB (13:45)
[2022-04-06 14:01] LABS: Glucose Point of Care 267 mg/dl (65-105)
[2022-04-06 15:52] LABS: Anti Glomerular Basement Memb <1.0 AI (<1.0)
--- NOTE | 2022-04-06 16:23 | PM.PNNEP ---
Progress Note: A&P Assessment and Plan (1) MARINA (acute kidney injury): Code(s): N17.9 - Acute kidney failure, unspecified Status: Acute Assessment and Plan: dialysis dependent. HD due tomorrow. she is getting a biopsy tomorrow. (2) Stage 3b chronic kidney disease: Code(s): N18.32 - Chronic kidney disease, stage 3b Status: Chronic Assessment and Plan: baseline creatinine runs ~ 1.6 - 2.2mg/dl likely due to CAD/CHF, vascular disease, diabetes, and age-related change (3) Acute on chronic respiratory failure: Code(s): J96.20 - Acute and chronic respiratory failure, unspecified whether with hypoxia or hypercapnia Status: Acute Assessment and Plan: multifactorial: volume overload asthma/COPD(?) RAINA/OHS anemia Echo looks okay. removing fluid daily (4) Hypertension: Code(s): I10 - Essential (primary) hypertension Status: Chronic Assessment and Plan: Blood pressure is better. Systolic blood pressure running around 120 Verapamil held. Continue to remove fluid (5) Anemia: Code(s): D64.9 - Anemia, unspecified Status: Acute Assessment and Plan: likely due to MARINA, CKD and acute illness hb still 7.8 getting Epogen. (6) Type 2 diabetes mellitus with hyperglycemia: Code(s): E11.65 - Type 2 diabetes mellitus with hyperglycemia Status: Chronic Assessment and Plan: On Accu-Cheks and sliding-scale insulin per hospitalist. Will continue to follow. Subjective Date/time seen: 04/06/22 16:23 Interval history: 04/03 Patient became more short of breath last night and was intubated. Currently off her sedative for an hour or so and slowly waking up. She looks comfortable on the ventilator. She is going to get dialysis soon 04/04 The patient is on the ventilator. She is on propofol. She has just been hooked up to dialysis. She is on dry ultrafiltration and tolerating this well. She was seen at 7:00 a.m. The patient is going to get a kidney biopsy today. I talked with Gwen her daughter at length about the risks benefits alternatives and process of the biopsy and she agrees to proceed. 04/05 Patient is on the ventilator and sedated. She looks comfortable. To get dialysis later today. 04/06 pt is sedated on the vent looks comfortable on no pressors. she received DUF today and 4L removed. BP is doing okay Exam Narrative: WDWN in NAD sedated and on the ventilator. skin no rash or subQ nodules head ncat lungs Coarse breath sounds On auscultation cor reg no rub or gallop abd BS+ nontender and soft ext 1-2+ edema. Objective Data Vital Signs Vital Signs: Vital Signs - 24 hr 04/05/22 16:36 04/05/22 16:36 04/05/22 17:06 Temperature Pulse Rate 83 83 83 Respiratory Rate 22 H 22 H Blood Pressure Pulse Oximetry 98 Oxygen Delivery Mechanical Ventilation Fraction of Inspired Oxygen 30 04/05/22 17:39 04/05/22 18:00 04/05/22 18:00 Temperature 101 F H Pulse Rate 84 87 86 Respiratory Rate 30 H 30 H Blood Pressure 145/51 H Pulse Oximetry 97 Oxygen Delivery Fraction of Inspired Oxygen 04/05/22 18:29 04/05/22 18:59 04/05/22 20:00 Temperature 101.2 F H 101.5 F H 101.7 F H Pulse Rate 87 Respiratory Rate 27 H Blood Pressure 138/48 L Pulse Oximetry 96 Oxygen Delivery Fraction of Inspired Oxygen 04/05/22 20:00 04/05/22 19:57 04/05/22 20:19 Temperature Pulse Rate 86 86 Respiratory Rate 27 H 27 H Blood Pressure Pulse Oximetry Oxygen Delivery Fraction of Inspired Oxygen 30 04/05/22 20:30 04/05/22 20:20 04/05/22 20:50 Temperature Pulse Rate 85 88 88 Respiratory Rate 25 H 21 H Blood Pressure Pulse Oximetry 99 Oxygen Delivery Mechanical Ventilation Fraction of Inspired Oxygen 30 04/05/22 20:00 04/05/22 22:00 04/05/22 22:00 Temperature 101.2 F H
[2022-04-06] MEDS: PROPOFOL IV EMULSION 100 ML 19.44 MG IV CONT (17:19)
[2022-04-06 18:04] LABS: Glucose Point of Care 373 mg/dl (65-105)
[2022-04-06] MEDS: INSULIN GLARGINE (*BKC) 100 UNITS/ML 45 UNITS SUB-Q (20:03)
[2022-04-06 20:09] LABS: Glucose Point of Care 324 mg/dl (65-105)
[2022-04-06 23:55] LABS: Glucose Point of Care 302 mg/dl (65-105)
[2022-04-07] VITALS (55 sets, daily range): BP systolic 111–178; BP diastolic 54–83; PULSE 84–97; RESP 18–27; TEMP 37–38; O2SAT 97–100
[2022-04-07] MEDS: PROPOFOL IV EMULSION 100 ML 23.33 MG IV CONT ×5 (02:04→22:05)
[2022-04-07] MEDS: IPRATROPIUM BR 0.02% INH SOLN 0.5 MG/2.5 ML VIAL INHALATION ×4 (02:40→20:10)
[2022-04-07 04:12] LABS: Hematocrit 27.3 % (37.0-47.0); Hemoglobin 8.2 g/dL (12.0-15.0); Mean Corpuscular Hemoglobin 23.5 pg (26-34); Mean Corpuscular Volume 78.2 fl (80-100); Mean Platelet Volume 9.8 fl (7.4-10.4); Platelet Count Result 469 k/mm3 (150-375); Red Blood Count 3.49 M/mm3 (4.2-5.4); Red Cell Distribution Width 17.4 % (11.5-14.5); White Blood Count 12.2 K/mm3 (4.5-10.0)
[2022-04-07 04:23] LABS: INR 1.6
[2022-04-07 04:31] LABS: Alanine Aminotransferase 16 U/L (6-35); Albumin Level 3.4 g/dL (3.5-5.1); Alkaline Phosphatase 133 U/L (38-126); Anion Gap 10 mmol/L (8-16); Aspartate Amino Transferase 20 U/L (14-36); Bilirubin,Total 0.5 mg/dL (0.2-1.3); Blood Urea Nitrogen 79 mg/dL (7-17); Calcium 8.2 mg/dL (8.4-10.2); Carbon Dioxide 28 mmol/L (22-30); Chloride 90 mmol/L (98-107); Estimated CRCL calculation 21 ml/min; Estimated Glomerular Filt Rate 15; Glucose 246 mg/dL (65-110); Magnesium 2.1 mg/dL (1.6-2.3); Sodium 128 mmol/L (137-145)
[2022-04-07] MEDS: INSULIN ASPART (*BKC) 100 UNITS/ML SUB-Q ×2 (05:39→17:08)
[2022-04-07] MEDS: LEVOTHYROXINE SODIUM 75 MCG TABLET PO (05:40)
[2022-04-07] MEDS: LEVOTHYROXINE SODIUM 100 MCG TABLET PO (05:40)
[2022-04-07 05:50] LABS: Alveolar/Arterial O2 Gradient 138.5 mmHg; Base Excess ABG 2.1 mEq/l (+/-2.0); Carboxyhemoglobin 0.3 % THb (0-2.0); Fractional Inspired Oxygen 40 %; HCO3 ABG 26.8 mEq/l (22.0-26.0); Methemoglobin ABG 0.2 %THb (0-1.5); Oxygen Content ABG 12.2 %vol (16.0-22.0); Oxygen Saturation ABG 97.5 % (95.0-100.0); Oxyhemoglobin 96.5 % THb (90.0-100.0); PCO2 ABG 42.4 mmHg (35.0-45.0); PO2 ABG 97.9 mmHg (80.0-100.0); PO2 FiO2 Ratio Arterial Blood 2.45 %; Total Hemoglobin 8.9 g/dL (12.0-18.0); pH ABG 7.419 (7.350-7.450)
[2022-04-07 05:50] LABS: Potassium 4.2 mmol/L (3.4-5.0)
[2022-04-07 06:01] LABS: Device VENTILATOR; Modified Allen's Test Pass; Site Drawn LEFT RADIAL
[2022-04-07 06:02] LABS: Arterial Blood Gas PEEP 8 cmH2O; Arterial Blood Gas Tidal Volume 380 ml; Arterial Blood Gas Vent Mode CMV; Arterial Blood Gas Ventilator rate 16 /MIN
[2022-04-07 06:30] LABS: Glucose Point of Care 254 mg/dl (65-105)
[2022-04-07] MEDS: INSULIN GLARGINE (*BKC) 100 UNITS/ML 10 UNITS SUB-Q (07:37)
[2022-04-07] MEDS: CYANOCOBALAMIN 1,000 MCG TABLET 2000 MCG PO (07:39)
[2022-04-07] MEDS: MINERAL OIL/WHITE PETROLATUM OINTMENT 1 APPLIC EACH EYE ×2 (07:39→20:11)
[2022-04-07] MEDS: PANTOPRAZOLE SODIUM IV 40 MG VIAL IV PUSH (07:39)
[2022-04-07] MEDS: polyethylene glycoL 3350 17 GM POWD.PACK PO (07:39)
[2022-04-07] MEDS: MONTELUKAST SODIUM 10 MG TABLET PO (07:39)
[2022-04-07] MEDS: FERROUS SULFATE 324 MG TABLET PO ×2 (07:39→17:09)
[2022-04-07 07:50] LABS: Glucose Point of Care 263 mg/dl (65-105)
[2022-04-07] MEDS: FLUCONAZOLE 200 MG/NACL 100 ML 200 MG/100 ML BAG 100 MG IVPB (07:58)
--- NOTE | 2022-04-07 11:20 | PM.PNNEP ---
Progress Note: A&P Assessment and Plan (1) MARINA (acute kidney injury): Code(s): N17.9 - Acute kidney failure, unspecified Status: Acute Assessment and Plan: dialysis dependent. HD due tomorrow. she is getting a biopsy later today (2) Stage 3b chronic kidney disease: Code(s): N18.32 - Chronic kidney disease, stage 3b Status: Chronic Assessment and Plan: baseline creatinine runs ~ 1.6 - 2.2mg/dl likely due to CAD/CHF, vascular disease, diabetes, and age-related change (3) Acute on chronic respiratory failure: Code(s): J96.20 - Acute and chronic respiratory failure, unspecified whether with hypoxia or hypercapnia Status: Acute Assessment and Plan: multifactorial: volume overload asthma/COPD(?) RAINA/OHS anemia Echo looks okay. removing fluid daily (4) Hypertension: Code(s): I10 - Essential (primary) hypertension Status: Chronic Assessment and Plan: Blood pressure is better. Systolic blood pressure running around 120 to 160 Verapamil held. Continue to remove fluid (5) Anemia: Code(s): D64.9 - Anemia, unspecified Status: Acute Assessment and Plan: likely due to MARINA, CKD and acute illness hb up to 8.2 getting Epogen with dialysis. (6) Type 2 diabetes mellitus with hyperglycemia: Code(s): E11.65 - Type 2 diabetes mellitus with hyperglycemia Status: Chronic Assessment and Plan: On Accu-Cheks and sliding-scale insulin per hospitalist. Will continue to follow. Subjective Date/time seen: 04/07/22 11:20 Interval history: 04/03 Patient became more short of breath last night and was intubated. Currently off her sedative for an hour or so and slowly waking up. She looks comfortable on the ventilator. She is going to get dialysis soon 04/04 The patient is on the ventilator. She is on propofol. She has just been hooked up to dialysis. She is on dry ultrafiltration and tolerating this well. She was seen at 7:00 a.m. The patient is going to get a kidney biopsy today. I talked with Gwen her daughter at length about the risks benefits alternatives and process of the biopsy and she agrees to proceed. 04/05 Patient is on the ventilator and sedated. She looks comfortable. To get dialysis later today. 04/06 pt is sedated on the vent looks comfortable on no pressors. she received DUF today and 4L removed. BP is doing okay 04/07 Gregoria is comfortable on the ventilator. She is on propofol. Her is in the room. We discussed the case. She is on dialysis currently and tolerating it well. The UF is set for 4L and the blood pressure is in the 120s without any pressors. She was seen at 10:00 a.m. Exam Narrative: WDWN in NAD sedated and on the ventilator. skin no rash or subQ nodules head ncat lungs Coarse breath sounds cor reg no rub or gallop abd BS+ nontender and soft ext 1-2+ edema. No cyanosis Objective Data Vital Signs Vital Signs: Vital Signs - 24 hr 04/06/22 11:30 04/06/22 11:45 04/06/22 12:00 Temperature Pulse Rate 79 81 Respiratory Rate Blood Pressure 121/55 L 127/57 L Pulse Oximetry Oxygen Delivery Fraction of Inspired Oxygen 30 04/06/22 12:00 04/06/22 12:00 04/06/22 12:00 Temperature 98.5 F Pulse Rate 82 83 Respiratory Rate 22 H Blood Pressure 119/56 L Pulse Oximetry 100 99 Oxygen Delivery Mechanical Ventilation Fraction of Inspired Oxygen 30 04/06/22 12:44 04/06/22 12:44 04/06/22 11:34 Temperature Pulse Rate 83 83 82 Respiratory Rate 20 20 Blood Pressure Pulse Oximetry 99 Oxygen Delivery Mechanical Ventilation Fraction of Inspired Oxygen 30 04/06/22 13:57 04/06/22 14:00 04/06/22 14:00 Temperature 99.4 F Pulse Rate 82 81 81 Respiratory Rate 18 18 Blood Pressure 116/55 L Pulse Oximetry 100 Oxygen Delivery Fraction of Inspired Oxygen
--- NOTE | 2022-04-07 11:28 | PCNFU ---
Nutrition Follow-Up Complete: Inadequate oral intake related to NPO, mechanical ventilation as evidenced by need for full tube feeding goal: Meet estimated protein energy needs Patient has progressing towards goal. Pt current nutrition is Nepro at 35 ml/hr. Last recorded weight is 111.5 kg. Bowel Motility:+Bm reported 04/07 Labs Reviewed:Glu 246, Cr 3.0,BUN 79,Alb 3.4 Meds Noted:Coumadin, Ferrous Sulfate, Miralax, Propofol at 30 dpg=966 kcals, Coumadin,Lantus, NovoLog, Protonix, Synthroid, B12 Skin: WNL Additional Notes: Patient remains on mechanical vent and tube feedings of Nepro at 35 ml/hr and tolerating. Protein Modular of Prosource TID providing an additional 240 kcals and 60 gms protein. Propofol infusion at 30 mcg or 23.33 ml/hr providing an additional 616 kcals. Total caloric intake 2242 kcals/122 gms protein/560 ml water. Meeting 100% and protein needs. Tube feedings currently on hold for renal biopsy today. Dialysis again today. Will continue to monitor propofol infusion for any tube feeding rate changes. If propofol remains at current rate recommend tube feedings to decrease to 30 ml/hr. Monitoring labs, tolerance, stool pattern, meds, skin, plan of care every Sunday and Sunday. Follow daily in ICU rounds
[2022-04-07 11:32] LABS: Glucose Point of Care 145 mg/dl (65-105)
[2022-04-07] MEDS: EPOETIN ALFA-EPBX 10,000 UNITS/ML VIAL 10000 UNITS IV PUSH (12:31)
--- NOTE | 2022-04-07 12:34 | WPDINTPN ---
Progress Note: A&P Assessment and Plan (1) Acute on chronic respiratory failure: Code(s): J96.20 - Acute and chronic respiratory failure, unspecified whether with hypoxia or hypercapnia Status: Acute Assessment and Plan: Multifactorial acute on chronic respiratory failure secondary to congestive heart failure, restrictive lung disease from obesity hypoventilation, history of asthma, volume overload from kidney disease, large pleural effusions 04/02 Patient was on BiPAP but was intubated due to poor mental status Vent settings and ABG reviewed 04/03: Chest CT shows There are airspace opacities bilaterally with a dependent predominance, consistent with atelectasis. There are moderate-sized pleural effusions. Patient is getting hemodialysis today to remove fluid Patient received hemodialysis on , 06/03, 04/04, 04/05, 04/06 -04/04/2022: Left-sided thoracenteses with 1000 mL of fluid removal which was done by IR -04/05/2022: Right thoracentesis with 950 ml of fluid removal by IR CXR this morning shows: Stable small pleural effusions. Diffuse lung disease with worsening in right upper lobe, consistent with pneumonia versus pulmonary edema (2) CHF (congestive heart failure): Code(s): I50.9 - Heart failure, unspecified Status: Acute Assessment and Plan: Hemodialysis for fluid removal -left thoracentesis done on 04/04 -right thoracentesis done on 04/05 (3) Hwqbe-pp-dtastgx kidney injury: Code(s): N17.9 - Acute kidney failure, unspecified; N18.9 - Chronic kidney disease, unspecified Status: Acute Assessment and Plan: Patient is on hemodialysis and has right tunnel catheter Nephrology is following Patient is going to be dialyzed daily for few days to remove fluid Dr. Dumont has requested a kidney biopsy but that will be done on 04/07 patient was on Plavix and IR requested to wait 5 days after holding Plavix (4) Chronic anticoagulation: Code(s): Z79.01 - halfway (current) use of anticoagulants Status: Acute Assessment and Plan: Patient is on warfarin for AFib and DVT history She needs kidney biopsy hence her Coumadin is being reversed. She was also received FFP and IR physician is requesting that she be off of Plavix for 5 days to minimize risk of bleeding for biopsy. She received 4 units of FFP on 04/03 and 2 units of FFP on 04/04. -INR 1.8 this morning -Will overlap with short-acting acting anticoagulation once INR is subtherapeutic until she gets all the procedures done -Plavix is also on hold for procedures (5) Atrial fibrillation: Code(s): I48.91 - Unspecified atrial fibrillation Status: Chronic Assessment and Plan: Currently in sinus rhythm Anticoagulation on hold for now for renal biopsy (6) DVT of lower extremity (deep venous thrombosis): Code(s): I82.409 - Acute embolism and thrombosis of unspecified deep veins of unspecified lower extremity Status: Acute Assessment and Plan: 02/20/2022 lower extremity venous Dopplers: Occlusive appearing DVT in the distal left femoral vein and left popliteal vein Currently off anticoagulation due to procedure -will restart once procedures are done, patient may have to be bridged with heparin infusion (7) Pleural effusion: Code(s): J90 - Pleural effusion, not elsewhere classified Status: Acute Assessment and Plan: Left-sided thoracentesis was done on 04/04 -right-sided thoracentesis done on 04/05 (8) Encephalopathy: Code(s): G93.40 - Encephalopathy, unspecified Status: Acute Assessment and Plan: Patient was unresponsive on 04/02 and had to be intubated Likely toxic metabolic encephalopathy Her blood glucose and ABG abnormal but would not explain her mental status CT head done and showed IMPRESSION: 1. 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 2. Mild nonspecific cerebral white matter disease, which likely represents chronic small ve
[2022-04-07] MEDS: CEFEPIME 0.5 GM in DEXTROSE 5% IN WATER 50 ML IVPB (17:17)
[2022-04-07 17:18] LABS: Glucose Point of Care 252 mg/dl (65-105)
[2022-04-07 20:10] LABS: Glucose Point of Care 249 mg/dl (65-105)
[2022-04-07] MEDS: INSULIN GLARGINE (*BKC) 100 UNITS/ML 55 UNITS SUB-Q (20:11)
[2022-04-08] VITALS (46 sets, daily range): BP systolic 110–169; BP diastolic 57–70; PULSE 78–100; RESP 14–24; TEMP 37–38.2; O2SAT 89–100
[2022-04-08 00:26] LABS: Glucose Point of Care 297 mg/dl (65-105)
[2022-04-08] MEDS: INSULIN ASPART (*BKC) 100 UNITS/ML SUB-Q ×3 (00:27→12:54)
[2022-04-08] MEDS: PROPOFOL IV EMULSION 100 ML 23.33 MG IV CONT (01:54)
[2022-04-08] MEDS: IPRATROPIUM BR 0.02% INH SOLN 0.5 MG/2.5 ML VIAL INHALATION ×4 (02:06→20:20)
[2022-04-08 04:31] LABS: Hematocrit 30.1 % (37.0-47.0); Hemoglobin 8.8 g/dL (12.0-15.0); Mean Corpuscular HGB Conc 29.2 g/dl (32-36); Mean Corpuscular Hemoglobin 23.7 pg (26-34); Mean Corpuscular Volume 80.9 fl (80-100); Platelet Count Result 465 k/mm3 (150-375); Red Blood Count 3.72 M/mm3 (4.2-5.4); Red Cell Distribution Width 17.7 % (11.5-14.5); White Blood Count 14.3 K/mm3 (4.5-10.0)
[2022-04-08 04:45] LABS: INR 1.4; Prothrombin Time 16.6 Seconds (11.1-14.7)
[2022-04-08 04:46] LABS: Alanine Aminotransferase 18 U/L (6-35); Albumin Level 3.6 g/dL (3.5-5.1); Alkaline Phosphatase 135 U/L (38-126); Anion Gap 12 mmol/L (8-16); Aspartate Amino Transferase 26 U/L (14-36); Bilirubin,Total 0.4 mg/dL (0.2-1.3); Blood Urea Nitrogen 53 mg/dL (7-17); Calcium 8.3 mg/dL (8.4-10.2); Carbon Dioxide 27 mmol/L (22-30); Chloride 90 mmol/L (98-107); Estimated CRCL calculation 23 ml/min; Estimated Glomerular Filt Rate 18; Glucose 300 mg/dL (65-110); Phosphorus 4.1 mg/dL (2.5-4.5); Potassium 4.1 mmol/L (3.4-5.0); Sodium 129 mmol/L (137-145); Triglycerides 196 mg/dL (<150)
[2022-04-08 04:47] LABS: Base Excess ABG 7.2 mEq/l (+/-2.0); Carboxyhemoglobin 0.3 % THb (0-2.0); Fractional Inspired Oxygen 30 %; HCO3 ABG 31.6 mEq/l (22.0-26.0); Methemoglobin ABG 0.3 %THb (0-1.5); Oxygen Content ABG 13.5 %vol (16.0-22.0); Oxygen Saturation ABG 97.9 % (95.0-100.0); Oxyhemoglobin 96.6 % THb (90.0-100.0); PCO2 ABG 44.4 mmHg (35.0-45.0); PO2 ABG 100.7 mmHg (80.0-100.0); PO2 FiO2 Ratio Arterial Blood 3.36 %; Reduced Hemoglobin 2.8 %THb (0-5.0); Total Hemoglobin 9.8 g/dL (12.0-18.0)
[2022-04-08 04:48] LABS: Device VENTILATOR; Modified Allen's Test Unable to perform; Site Drawn RIGHT RADIAL
[2022-04-08 04:49] LABS: Arterial Blood Gas PEEP 8 cmH2O; Arterial Blood Gas Tidal Volume 380 ml; Arterial Blood Gas Vent Mode CMV; Arterial Blood Gas Ventilator rate 16 /MIN
[2022-04-08 06:03] LABS: Glucose Point of Care 284 mg/dl (65-105)
[2022-04-08] MEDS: PROPOFOL IV EMULSION 100 ML 15.55 MG IV CONT (06:04)
[2022-04-08] MEDS: LEVOTHYROXINE SODIUM 100 MCG TABLET PO (06:07)
[2022-04-08] MEDS: LEVOTHYROXINE SODIUM 75 MCG TABLET PO (06:07)
[2022-04-08] MEDS: FLUCONAZOLE 200 MG/NACL 100 ML 200 MG/100 ML BAG 100 MG IVPB (08:32)
[2022-04-08] MEDS: INSULIN GLARGINE (*BKC) 100 UNITS/ML 10 UNITS SUB-Q (08:32)
[2022-04-08] MEDS: polyethylene glycoL 3350 17 GM POWD.PACK PO (08:33)
[2022-04-08] MEDS: MONTELUKAST SODIUM 10 MG TABLET PO (08:33)
[2022-04-08] MEDS: PANTOPRAZOLE SODIUM IV 40 MG VIAL IV PUSH (08:33)
[2022-04-08] MEDS: CYANOCOBALAMIN 1,000 MCG TABLET 2000 MCG PO (08:33)
[2022-04-08] MEDS: FERROUS SULFATE 324 MG TABLET PO ×2 (08:33→17:26)
[2022-04-08] MEDS: MINERAL OIL/WHITE PETROLATUM OINTMENT 1 APPLIC EACH EYE ×2 (08:33→22:31)
[2022-04-08 09:20] LABS: Glucose Point of Care 285 mg/dl (65-105)
--- NOTE | 2022-04-08 11:05 | PM.PNNEP ---
Progress Note: A&P Assessment and Plan (1) MARINA (acute kidney injury): Code(s): N17.9 - Acute kidney failure, unspecified Status: Acute Assessment and Plan: dialysis dependent for the last month... DUF today and plan HD on Sunday -- continue daily HD/DUF for now s/p renal biopsy (on 04/07/22) -- pathology pending (2) Stage 3b chronic kidney disease: Code(s): N18.32 - Chronic kidney disease, stage 3b Status: Chronic Assessment and Plan: baseline creatinine runs ~ 1.6 - 2.2mg/dl likely due to CAD/CHF, vascular disease, diabetes, and age-related change (3) Acute on chronic respiratory failure: Code(s): J96.20 - Acute and chronic respiratory failure, unspecified whether with hypoxia or hypercapnia Status: Acute Assessment and Plan: multifactorial: volume overload asthma/COPD(?) RAINA/OHS anemia Echo stable continue aggressive ultrafiltration/fluid removal daily will give her a rest/break tomorrow (4) Hypertension: Code(s): I10 - Essential (primary) hypertension Status: Chronic Assessment and Plan: blood pressure doing better hopefully, fluid removal/ultrafiltration is helping this follow trend of hemodynamics (5) Anemia: Code(s): D64.9 - Anemia, unspecified Status: Acute Assessment and Plan: likely due to MARINA, CKD and acute illness Epogen with HD follow trend of H/H (6) Type 2 diabetes mellitus with hyperglycemia: Code(s): E11.65 - Type 2 diabetes mellitus with hyperglycemia Status: Chronic Assessment and Plan: On Accu-Cheks on sliding-scale insulin Discussed case with Dr. Martin. Will continue to follow. Subjective Date/time seen: 04/08/22 11:05 Chart reviewed since last seen -- following this weekend; tolerating session of dry ultrafiltration today at the time of my visit (seen on DUF at 10:50AM); tolerated dialysis treatment yesterday without any issue/problems with ~ 4L fluid removal; remains intubated/sedated and on mechanical ventilation; s/p kidney biopsy yesterday by IR; febrile in the last 24 hours with Tmax of 101 degrees. Exam Narrative: General: WD/WN female intubated/sedated and on mechanical ventilation Heart: normal S1 and S2; no rub Lungs: coarse breath sounds through pit Abdomen: soft, nontender, nondistended, positive bowel sounds Extremities: no cyanosis or clubbing; 1+ edema Skin: warm and dry Objective Data Vital Signs Vital Signs: Vital Signs Temp Pulse Resp BP Pulse Ox O2 Del Method FiO2 04/08/22 10:00 83 04/08/22 08:00 88 04/08/22 11:45 86 154/70 H 04/08/22 11:30 87 153/62 H 04/08/22 11:15 87 157/67 H 04/08/22 11:00 85 146/61 H 04/08/22 10:45 78 157/64 H 04/08/22 10:40 80 162/67 H 04/08/22 10:25 30 04/08/22 10:27 99.6 F 83 18 169/64 H 99 04/08/22 10:00 99.7 F H 85 18 160/65 H 99 04/08/22 08:23 91 19 04/08/22 08:23 91 100 Mechanical Ventilation 30 04/08/22 09:16 86 16 04/08/22 08:15 85 17 04/08/22 08:00 88 17 04/08/22 07:45 88 16 04/08/22 07:30 88 17 04/08/22 08:00 99 Mechanical Ventilation 30 04/08/22 08:00 30 04/08/22 08:00 100.0 F H 88 18 152/63 H 99 04/08/22 06:00 100 F H 86 17 148/59 H 100 04/08/22 05:56 86 04/08/22 04:50 89 100 Mechanical Ventilation 30 04/08/22 04:00 100 F H 87 17 129/58 L 100 04/08/22 04:00 30 04/08/22 04:00 100 Mechanical Ventilation 30 04/08/22 04:00 90 04/08/22 02:05 90 21 H 04/08/22 02:08 90 99 Mechanical Ventilation 30 04/08/22 02:00 90 04/08/22 02:00 100.7 F H 90 21 H 121/58 L 99 04/07/22 23:10 90 99 Mechanical Ventilation 30 04/07/22 20:25 89 27 H 04/08/22 00:00 98 Mechanical Ventilation 30 04/08/22
[2022-04-08] MEDS: HEPARIN SOD/D5W 100 UNITS/ML 25,000 UNITS/250 ML BAG 15 UNITS IV CONT (11:07)
[2022-04-08 11:09] LABS: Basophils Absolute Auto 0.1 K/mm3 (0.0-0.1); Basophils Percent Auto 0.8 % (0.2-1.2); Eosinophils Absolute Auto 0.4 K/mm3 (0-0.3); Eosinophils Percent Auto 2.4 % (0-4.4); Hematocrit 31.7 % (37.0-47.0); Hemoglobin 9.2 g/dL (12.0-15.0); Immature Granulocyte Absolute 0.59 K/mm3 (0.00-0.031); Immature Granulocyte Percent A 3.8 % (0-0.5); Lymphocytes Percent Auto 6.4 % (18.3-44.2); Mean Corpuscular Hemoglobin 23.4 pg (26-34); Mean Corpuscular Volume 80.7 fl (80-100); Mean Platelet Volume 9.4 fl (7.4-10.4); Monocytes Absolute Auto 1.9 K/mm3 (0.1-0.6); Monocytes Percent Auto 11.8 % (2.6-8.5); Neutrophils Absolute Auto 11.8 K/mm3 (1.3-6.7); Neutrophils Percent Auto 74.8 % (45.5-73.1); Nucleated Red Blood Cells Perc 0.1 % (0.0-0.2); Platelet Count Result 491 k/mm3 (150-375); Red Blood Count 3.93 M/mm3 (4.2-5.4); Red Cell Distribution Width 17.8 % (11.5-14.5); White Blood Count 15.7 K/mm3 (4.5-10.0)
[2022-04-08 11:32] LABS: INR 1.4; Prothrombin Time 16.5 Seconds (11.1-14.7)
[2022-04-08 11:33] LABS: Partial Thromboplastin Time 34.9 SECONDS (22.3-36.8)
--- NOTE | 2022-04-08 12:15 | WPDINTPN ---
Progress Note: A&P Assessment and Plan (1) Acute on chronic respiratory failure: Code(s): J96.20 - Acute and chronic respiratory failure, unspecified whether with hypoxia or hypercapnia Status: Acute Assessment and Plan: Multifactorial acute on chronic respiratory failure secondary to congestive heart failure, restrictive lung disease from obesity hypoventilation, history of asthma, volume overload from kidney disease, large pleural effusions 04/02 Patient was on BiPAP but was intubated due to poor mental status Vent settings and ABG reviewed 04/03: Chest CT shows There are airspace opacities bilaterally with a dependent predominance, consistent with atelectasis. There are moderate-sized pleural effusions. Patient is getting hemodialysis today to remove fluid Patient received hemodialysis on 04/02, 06/03, 04/04, 04/05, 04/06, 04/07 -04/04/2022: Left-sided thoracenteses with 1000 mL of fluid removal which was done by IR -04/05/2022: Right thoracentesis with 950 ml of fluid removal by IR CXR this morning shows: Stable small pleural effusions. Diffuse lung disease with worsening in right upper lobe, consistent with pneumonia versus pulmonary edema Continue bronchodilators -sedated with propofol, currently discontinued, if needed will start her on Precedex infusion (2) CHF (congestive heart failure): Code(s): I50.9 - Heart failure, unspecified Status: Acute Assessment and Plan: Hemodialysis for fluid removal -left thoracentesis done on 04/04 -right thoracentesis done on 04/05 (3) Bsmut-aw-zpepwvy kidney injury: Code(s): N17.9 - Acute kidney failure, unspecified; N18.9 - Chronic kidney disease, unspecified Status: Acute Assessment and Plan: Patient is on hemodialysis and has right tunnel catheter Nephrology is following Patient has been dialyzed since 04/02 daily significant fluid removal. 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 She was also received FFP and IR physician is requesting that she be off of Plavix for 5 days to minimize risk of bleeding for biopsy. She received 4 units of FFP on 04/03 and 2 units of FFP on 04/04. -INR 1.4 this morning -started patient on heparin infusion for AFib and DVT -Plavix is also on hold (5) Atrial fibrillation: Code(s): I48.91 - Unspecified atrial fibrillation Status: Chronic Assessment and Plan: Currently in sinus rhythm Title heparin infusion for anticoagulation (6) DVT of lower extremity (deep venous thrombosis): Code(s): I82.409 - Acute embolism and thrombosis of unspecified deep veins of unspecified lower extremity Status: Acute Assessment and Plan: 02/20/2022 lower extremity venous Dopplers: Occlusive appearing DVT in the distal left femoral vein and left popliteal vein Currently off anticoagulation due to procedure -heparin infusion was started on 04/07/2022 (7) Pleural effusion: Code(s): J90 - Pleural effusion, not elsewhere classified Status: Acute Assessment and Plan: Left-sided thoracentesis was done on 04/04 -right-sided thoracentesis done on 04/05 (8) Encephalopathy: Code(s): G93.40 - Encephalopathy, unspecified Status: Acute Assessment and Plan: Patient was unresponsive on 04/02 and had to be intubated Likely toxic metabolic encephalopathy Her blood glucose and ABG abnormal but would not explain her mental status CT head done and showed IMPRESSION: 1. 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 2. Mild nonspecific cerebral white matter disease, which likely represents chronic small vessel ischemic disease. Patient on so on some medicat
[2022-04-08 12:39] LABS: Glucose Point of Care 331 mg/dl (65-105)
[2022-04-08 14:15] LABS: Platelet Estimate Increased (Adequate)
[2022-04-08 14:17] LABS: Anisocytosis 1+ (NORMAL); Hypochromasia 1+ (NORMAL)
[2022-04-08 14:18] LABS: Microcytosis 1+ (NORMAL); Schistocytes None Seen (NORMAL)
--- NOTE | 2022-04-08 15:00 | PM.IMPN ---
Progress Note: A&P Assessment and Plan (1) Acute on chronic respiratory failure: Code(s): J96.20 - Acute and chronic respiratory failure, unspecified whether with hypoxia or hypercapnia Status: Acute Assessment and Plan: Multifactorial acute on chronic respiratory failure secondary to congestive heart failure, restrictive lung disease from obesity hypoventilation, history of asthma, volume overload from kidney disease, large pleural effusions 04/02 Patient was Placed on BiPAP but was intubated due to poor mental status ventilatory management per game farm helper. 04/03: Chest CT shows There are airspace opacities bilaterally with a dependent predominance, consistent with atelectasis. There are moderate-sized pleural effusions. Patient is getting hemodialysis today to remove fluid Patient received hemodialysis on 04/02, 06/03, 04/04, 04/05, 04/06, 04/07 , 04/08 -04/04/2022: Left-sided thoracenteses with 1000 mL of fluid removal which was done by IR -04/05/2022: Right thoracentesis with 950 ml of fluid removal by IR CXR with Stable small pleural effusions. Diffuse lung disease with worsening in right upper lobe, consistent with pneumonia versus pulmonary edema 04/08 Continue bronchodilators (2) CHF (congestive heart failure): Code(s): I50.9 - Heart failure, unspecified Status: Acute Assessment and Plan: Hemodialysis for fluid removal -left thoracentesis done on 04/04 -right thoracentesis done on 04/05 (3) [id number]-nfgfdvw kidney injury: Code(s): N17.9 - Acute kidney failure, unspecified; N18.9 - Chronic kidney disease, unspecified Status: Acute Assessment and Plan: Patient is on hemodialysis and has right tunnel catheter Nephrology is following Patient has been dialyzed since 04/02 daily significant fluid removal. -04/07/2022 patient had a left kidney biopsy by interventional radiologist, await path report (4) Chronic anticoagulation: Code(s): Z79.01 - care home (current) use of anticoagulants Status: Acute Assessment and Plan: Patient is on warfarin for AFib and DVT history She needs kidney biopsy hence her Coumadin is being reversed. She was also received FFP and IR physician is requesting that she be off of Plavix for 5 days to minimize risk of bleeding for biopsy. She received 4 units of FFP on 04/03 and 2 units of FFP on 04/04. -INR 1.4 this morning -started patient on heparin infusion for AFib and DVT -Plavix is also on hold (5) Atrial fibrillation: Code(s): I48.91 - Unspecified atrial fibrillation Status: Chronic Assessment and Plan: Currently in sinus rhythm currently on heparin infusion for anticoagulation (6) DVT of lower extremity (deep venous thrombosis): Code(s): I82.409 - Acute embolism and thrombosis of unspecified deep veins of unspecified lower extremity Status: Acute Assessment and Plan: 02/20/2022 lower extremity venous Dopplers: Occlusive appearing DVT in the distal left femoral vein and left popliteal vein Currently off anticoagulation due to procedure -heparin infusion was started on 04/07/2022 (7) Pleural effusion: Code(s): J90 - Pleural effusion, not elsewhere classified Status: Acute Assessment and Plan: Left-sided thoracentesis was done on 04/04 -right-sided thoracentesis done on 04/05 (8) Encephalopathy: Code(s): G93.40 - Encephalopathy, unspecified Status: Acute Assessment and Plan: Patient was unresponsive on 04/02 and had to be intubated Likely toxic metabolic encephalopathy Her blood glucose and ABG abnormal but would not explain her mental status CT head done and showed IMPRESSION: 1. 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 2. Mild nonspecific cerebral white matter disease, which likely represents chronic small vessel ischemic disease. Patient on so on some medication that would cause sedation including Neurontin tramadol and Xanax
[2022-04-08] MEDS: CEFEPIME 0.5 GM in DEXTROSE 5% IN WATER 50 ML IVPB (17:22)
[2022-04-08 17:28] LABS: Partial Thromboplastin Time 57.9 SECONDS (22.3-36.8)
[2022-04-08] MEDS: HEPARIN SODIUM 5,000 UNITS/ML VIAL 3500 UNITS IV PUSH (17:34)
[2022-04-08 18:19] LABS: Glucose Point of Care 443 mg/dl (65-105)
[2022-04-08] MEDS: INSULIN HUMAN REGULAR (*BKC) 100 UNITS/ML 10 UNITS IV PUSH (19:01)
[2022-04-08] MEDS: INSULIN GLARGINE (*BKC) 100 UNITS/ML 65 UNITS SUB-Q (19:03)
[2022-04-08 22:09] LABS: Glucose Point of Care 421 mg/dl (65-105)
[2022-04-08] MEDS: INSULIN ASPART (*BKC) 100 UNITS/ML 8 UNITS SUB-Q (22:30)
[2022-04-09] VITALS (31 sets, daily range): BP systolic 118–158; BP diastolic 56–79; PULSE 93–108; RESP 17–22; TEMP 37.7–38.2; O2SAT 98–100
[2022-04-09 00:13] LABS: Partial Thromboplastin Time 86.4 SECONDS (22.3-36.8)
[2022-04-09] MEDS: HEPARIN SOD/D5W 100 UNITS/ML 25,000 UNITS/250 ML BAG 17 UNITS IV CONT ×2 (00:35→18:25)
[2022-04-09 01:00] LABS: Vancomycin Random 10.2 ug/mL (10-20)
[2022-04-09] MEDS: INSULIN ASPART (*BKC) 100 UNITS/ML SUB-Q ×3 (01:11→08:08)
[2022-04-09 01:16] LABS: Glucose Point of Care 391 mg/dl (65-105)
[2022-04-09] MEDS: IPRATROPIUM BR 0.02% INH SOLN 0.5 MG/2.5 ML VIAL INHALATION ×4 (02:07→21:10)
[2022-04-09 04:06] LABS: Glucose Point of Care 344 mg/dl (65-105)
[2022-04-09 05:21] LABS: Alveolar/Arterial O2 Gradient 70.5 mmHg; Base Excess ABG 3.3 mEq/l (+/-2.0); Carboxyhemoglobin 0.2 % THb (0-2.0); Fractional Inspired Oxygen 30 %; HCO3 ABG 28.7 mEq/l (22.0-26.0); Methemoglobin ABG 0.2 %THb (0-1.5); Oxygen Content ABG 15.3 %vol (16.0-22.0); Oxygen Saturation ABG 96.6 % (95.0-100.0); Oxyhemoglobin 95.9 % THb (90.0-100.0); PCO2 ABG 47.5 mmHg (35.0-45.0); PO2 ABG 87.6 mmHg (80.0-100.0); PO2 FiO2 Ratio Arterial Blood 2.92 %; Reduced Hemoglobin 3.7 %THb (0-5.0); Total Hemoglobin 11.3 g/dL (12.0-18.0); pH ABG 7.399 (7.350-7.450)
[2022-04-09 05:23] LABS: Arterial Blood Gas Vent Mode CMV; Arterial Blood Gas Ventilator rate 16 /MIN; Device VENTILATOR; Modified Allen's Test Unable to perform; Site Drawn LEFT RADIAL
[2022-04-09 05:24] LABS: Arterial Blood Gas PEEP 8 cmH2O; Arterial Blood Gas Tidal Volume 380 ml
[2022-04-09] MEDS: LEVOTHYROXINE SODIUM 100 MCG TABLET PO (06:07)
[2022-04-09] MEDS: LEVOTHYROXINE SODIUM 75 MCG TABLET PO (06:07)
[2022-04-09 07:01] LABS: Basophils Absolute Auto 0.2 K/mm3 (0.0-0.1); Basophils Percent Auto 0.9 % (0.2-1.2); Eosinophils Absolute Auto 0.5 K/mm3 (0-0.3); Eosinophils Percent Auto 2.4 % (0-4.4); Hematocrit 32.1 % (37.0-47.0); Hemoglobin 9.4 g/dL (12.0-15.0); Immature Granulocyte Absolute 0.74 K/mm3 (0.00-0.031); Immature Granulocyte Percent A 3.7 % (0-0.5); Lymphocytes Absolute Auto 1.65 K/mm3 (0.9-3.2); Lymphocytes Percent Auto 8.3 % (18.3-44.2); Mean Corpuscular HGB Conc 29.3 g/dl (32-36); Mean Corpuscular Hemoglobin 23.4 pg (26-34); Mean Platelet Volume 10.3 fl (7.4-10.4); Monocytes Absolute Auto 2.5 K/mm3 (0.1-0.6); Monocytes Percent Auto 12.6 % (2.6-8.5); Neutrophils Absolute Auto 14.4 K/mm3 (1.3-6.7); Neutrophils Percent Auto 72.1 % (45.5-73.1); Nucleated Red Blood Cells Perc 0.1 % (0.0-0.2); Platelet Count Result 504 k/mm3 (150-375); Red Blood Count 4.01 M/mm3 (4.2-5.4); Red Cell Distribution Width 18.1 % (11.5-14.5); White Blood Count 19.9 K/mm3 (4.5-10.0)
[2022-04-09 07:16] LABS: Alanine Aminotransferase 22 U/L (6-35); Alkaline Phosphatase 163 U/L (38-126); Anion Gap 14 mmol/L (8-16); Aspartate Amino Transferase 30 U/L (14-36); Bilirubin,Total 0.6 mg/dL (0.2-1.3); Blood Urea Nitrogen 96 mg/dL (7-17); Calcium 8.9 mg/dL (8.4-10.2); Carbon Dioxide 25 mmol/L (22-30); Chloride 87 mmol/L (98-107); Estimated CRCL calculation 16 ml/min; Estimated Glomerular Filt Rate 12; Glucose 436 mg/dL (65-110); Phosphorus 4.3 mg/dL (2.5-4.5); Potassium 3.9 mmol/L (3.4-5.0); Sodium 126 mmol/L (137-145)
[2022-04-09 07:30] LABS: INR 1.3; Prothrombin Time 15.8 Seconds (11.1-14.7)
[2022-04-09 07:31] LABS: Partial Thromboplastin Time 74.1 SECONDS (22.3-36.8)
[2022-04-09] MEDS: INSULIN GLARGINE (*BKC) 100 UNITS/ML 40 UNITS SUB-Q (08:06)
[2022-04-09] MEDS: FERROUS SULFATE 324 MG TABLET PO ×2 (08:06→16:37)
[2022-04-09] MEDS: PANTOPRAZOLE SODIUM IV 40 MG VIAL IV PUSH (08:06)
[2022-04-09] MEDS: MONTELUKAST SODIUM 10 MG TABLET PO (08:06)
[2022-04-09] MEDS: polyethylene glycoL 3350 17 GM POWD.PACK PO (08:06)
[2022-04-09] MEDS: CYANOCOBALAMIN 1,000 MCG TABLET 2000 MCG PO (08:06)
[2022-04-09] MEDS: MINERAL OIL/WHITE PETROLATUM OINTMENT 1 APPLIC EACH EYE ×2 (08:06→21:03)
[2022-04-09 08:19] LABS: Glucose Point of Care 390 mg/dl (65-105)
--- NOTE | 2022-04-09 08:48 | WPDINTPN ---
Progress Note: A&P Assessment and Plan (1) Acute on chronic respiratory failure: Code(s): J96.20 - Acute and chronic respiratory failure, unspecified whether with hypoxia or hypercapnia Status: Acute Assessment and Plan: Multifactorial acute on chronic respiratory failure secondary to congestive heart failure, restrictive lung disease from obesity hypoventilation, history of asthma, volume overload from kidney disease, large pleural effusions 04/02 Patient was on BiPAP but was intubated due to poor mental status Vent settings and ABG reviewed 04/03: Chest CT shows There are airspace opacities bilaterally with a dependent predominance, consistent with atelectasis. There are moderate-sized pleural effusions. Patient is getting hemodialysis today to remove fluid Patient received hemodialysis on 04/02, 06/03, 04/04, 04/05, 04/06, 04/07 -04/04/2022: Left-sided thoracenteses with 1000 mL of fluid removal which was done by IR -04/05/2022: Right thoracentesis with 950 ml of fluid removal by IR CXR this morning shows: Unchanged diffuse bilateral airspace disease which may represent edema or pneumonia.? Small left pleural effusion Continue bronchodilators -off sedation since 04/08, 8:00 a.m. (2) CHF (congestive heart failure): Code(s): I50.9 - Heart failure, unspecified Status: Acute Assessment and Plan: Hemodialysis for fluid removal -left thoracentesis done on 04/04 -right thoracentesis done on 04/05 (3) Qkkiw-sb-vntydhh kidney injury: Code(s): N17.9 - Acute kidney failure, unspecified; N18.9 - Chronic kidney disease, unspecified Status: Acute Assessment and Plan: Patient is on hemodialysis and has right tunnel catheter Nephrology is following Patient has been dialyzed since 04/02 to 04/09 daily significant fluid removal. 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 She was also received FFP and IR physician is requesting that she be off of Plavix for 5 days to minimize risk of bleeding for biopsy. She received 4 units of FFP on 04/03 and 2 units of FFP on 04/04. -INR 1.4 this morning -04/08: started patient on heparin infusion for AFib and DVT -Plavix is also on hold (5) Atrial fibrillation: Code(s): I48.91 - Unspecified atrial fibrillation Status: Chronic Assessment and Plan: Currently in sinus rhythm Continue heparin infusion for anticoagulation (6) DVT of lower extremity (deep venous thrombosis): Code(s): I82.409 - Acute embolism and thrombosis of unspecified deep veins of unspecified lower extremity Status: Acute Assessment and Plan: 02/20/2022 lower extremity venous Dopplers: Occlusive appearing DVT in the distal left femoral vein and left popliteal vein Currently off anticoagulation due to procedure -heparin infusion was started on 04/08/2022 (7) Pleural effusion: Code(s): J90 - Pleural effusion, not elsewhere classified Status: Acute Assessment and Plan: Left-sided thoracentesis was done on 04/04 -right-sided thoracentesis done on 04/05 (8) Encephalopathy: Code(s): G93.40 - Encephalopathy, unspecified Status: Acute Assessment and Plan: Patient was unresponsive on 04/02 and had to be intubated Likely toxic metabolic encephalopathy Her blood glucose and ABG abnormal but would not explain her mental status CT head done and showed IMPRESSION: 1. 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 2. Mild nonspecific cerebral white matter disease, which likely represents chronic small vessel ischemic disease. Patient on so on some medication that would cause sedation including Neurontin tramadol and
[2022-04-09 10:07] LABS: Ammonia 22 umol/L (9-30)
--- NOTE | 2022-04-09 10:34 | PM.PNNEP ---
Progress Note: A&P Assessment and Plan (1) MARINA (acute kidney injury): Code(s): N17.9 - Acute kidney failure, unspecified Status: Acute Assessment and Plan: dialysis dependent for the last month... DUF yesterday and plan HD on Sunday -- continue daily HD/DUF for now s/p renal biopsy (on 04/07/22) -- pathology pending (2) Stage 3b chronic kidney disease: Code(s): N18.32 - Chronic kidney disease, stage 3b Status: Chronic Assessment and Plan: baseline creatinine runs ~ 1.6 - 2.2mg/dl likely due to CAD/CHF, vascular disease, diabetes, and age-related change (3) Acute on chronic respiratory failure: Code(s): J96.20 - Acute and chronic respiratory failure, unspecified whether with hypoxia or hypercapnia Status: Acute Assessment and Plan: multifactorial: volume overload asthma/COPD(?) RAINA/OHS anemia Echo stable continue aggressive ultrafiltration/fluid removal daily will give her a rest/break today (4) Hypertension: Code(s): I10 - Essential (primary) hypertension Status: Chronic Assessment and Plan: blood pressure doing better hopefully, fluid removal/ultrafiltration is helping this follow trend of hemodynamics (5) Anemia: Code(s): D64.9 - Anemia, unspecified Status: Acute Assessment and Plan: likely due to MARINA, CKD and acute illness Epogen with HD follow trend of H/H (6) Type 2 diabetes mellitus with hyperglycemia: Code(s): E11.65 - Type 2 diabetes mellitus with hyperglycemia Status: Chronic Assessment and Plan: On Accu-Cheks on sliding-scale insulin Will continue to follow. Subjective Date/time seen: 04/09/22 10:34 Remains intubated and on mechanical ventilator support; tolerated DUF session yesterday with another 4L fluid removal; low grade temperatures noted; due to fluctuating mentation, repeat head CT done this AM with results noted; no other acute issues/events overnight or earlier this morning. Exam Narrative: General: WD/WN female intubated and on mechanical ventilation Heart: normal S1 and S2; no rub Lungs: coarse breath sounds throughout Abdomen: soft, nontender, nondistended, positive bowel sounds Extremities: no cyanosis or clubbing; 1+ edema Skin: warm and intact Objective Data Vital Signs Vital Signs: Vital Signs Temp Pulse Resp BP Pulse Ox O2 Del Method FiO2 04/09/22 10:00 99.9 F H 97 17 118/62 100 04/09/22 10:00 97 04/09/22 08:00 95 04/09/22 09:27 98 99 Mechanical Ventilation 30 04/09/22 07:56 100 Mechanical Ventilation 30 04/09/22 07:54 30 04/09/22 07:53 99.9 F H 97 17 151/69 H 100 04/09/22 07:51 99 18 04/09/22 07:50 97 100 Mechanical Ventilation 30 04/09/22 07:40 98 18 04/09/22 02:13 94 22 H 04/09/22 06:00 99.9 F H 99 19 126/65 99 04/09/22 06:00 98 04/09/22 05:25 97 99 Mechanical Ventilation 30 04/09/22 04:00 94 04/09/22 04:00 100.1 F H 99 20 158/65 H 98 04/09/22 04:00 30 04/09/22 04:00 99 Mechanical Ventilation 30 04/09/22 02:00 100 F H 95 20 152/72 H 100 04/09/22 02:00 98 04/08/22 20:36 89 22 H 04/09/22 02:05 97 99 Mechanical Ventilation 30 04/08/22 23:00 94 100 Mechanical Ventilation 30 04/09/22 02:10 97 22 H 04/09/22 00:00 93 04/09/22 00:00 100 Mechanical Ventilation 30 04/09/22 00:00 100 F H 96 20 149/70 H 100 04/09/22 00:00 30 04/08/22 22:00 92 04/08/22 20:00 94 04/08/22 22:00 99.8 F H 89 20 145/58 H 99 04/08/22 20:00 99 Mechanical Ventilation 30 04/08/22 20:00 99.8 F H 90 21 H 149/58 H 99 04/08/22 20:00 30 04/08/22 20:20 90 99 Mechanical Ventilation 30 04/08/22 20:22 90 19 04/08/22 18:00 91 04/08/22 16:00 82
[2022-04-09 13:19] LABS: Glucose Point of Care 404 mg/dl (65-105)
[2022-04-09] MEDS: INSULIN HUMAN REGULAR (*BKC) 100 UNITS in SODIUM CHLORIDE 0.9% IV 99 ML 6.94 UNITS IV CONT (13:31)
[2022-04-09] MEDS: CEFEPIME 0.5 GM in DEXTROSE 5% IN WATER 50 ML IVPB (17:42)
[2022-04-09 17:57] LABS: Glucose Point of Care 262 mg/dl (65-105)
[2022-04-09 19:50] LABS: Glucose Point of Care 181 mg/dl (65-105)
[2022-04-09 20:58] LABS: Glucose Point of Care 407 mg/dl (65-105)
[2022-04-09 20:58] LABS: Glucose Point of Care 279 mg/dl (65-105)
[2022-04-09 20:58] LABS: Glucose Point of Care 320 mg/dl (65-105)
[2022-04-09 20:58] LABS: Glucose Point of Care 386 mg/dl (65-105)
[2022-04-09 20:58] LABS: Glucose Point of Care 160 mg/dl (65-105)
[2022-04-09 20:58] LABS: Glucose Point of Care 246 mg/dl (65-105)
[2022-04-09] MEDS: INSULIN HUMAN REGULAR (*BKC) 100 UNITS in SODIUM CHLORIDE 0.9% IV 99 ML 8 UNITS IV CONT (21:15)
[2022-04-09 22:12] LABS: Glucose Point of Care 145 mg/dl (65-105)
[2022-04-10] VITALS (111 sets, daily range): BP systolic 80–185; BP diastolic 55–89; PULSE 87–118; RESP 0–29; TEMP 36.5–38.2; O2SAT 95–100; BMI 37.1
[2022-04-10 00:25] LABS: Glucose Point of Care 164 mg/dl (65-105)
[2022-04-10 00:25] LABS: Glucose Point of Care 174 mg/dl (65-105)
[2022-04-10 00:50] LABS: Glucose Point of Care 166 mg/dl (65-105)
[2022-04-10] MEDS: IPRATROPIUM BR 0.02% INH SOLN 0.5 MG/2.5 ML VIAL INHALATION ×4 (02:18→19:48)
[2022-04-10 02:50] LABS: Glucose Point of Care 151 mg/dl (65-105)
[2022-04-10 02:50] LABS: Glucose Point of Care 150 mg/dl (65-105)
[2022-04-10 04:12] LABS: Basophils Absolute Auto 0.2 K/mm3 (0.0-0.1); Basophils Percent Auto 0.8 % (0.2-1.2); Eosinophils Absolute Auto 0.7 K/mm3 (0-0.3); Eosinophils Percent Auto 3.3 % (0-4.4); Hematocrit 30.7 % (37.0-47.0); Hemoglobin 9.5 g/dL (12.0-15.0); Immature Granulocyte Absolute 0.82 K/mm3 (0.00-0.031); Immature Granulocyte Percent A 3.7 % (0-0.5); Lymphocytes Percent Auto 10.3 % (18.3-44.2); Mean Corpuscular HGB Conc 30.9 g/dl (32-36); Mean Corpuscular Hemoglobin 23.9 pg (26-34); Mean Corpuscular Volume 77.1 fl (80-100); Mean Platelet Volume 9.9 fl (7.4-10.4); Monocytes Absolute Auto 2.5 K/mm3 (0.1-0.6); Monocytes Percent Auto 11.1 % (2.6-8.5); Neutrophils Absolute Auto 15.8 K/mm3 (1.3-6.7); Neutrophils Percent Auto 70.8 % (45.5-73.1); Platelet Count Result 542 k/mm3 (150-375); Red Blood Count 3.98 M/mm3 (4.2-5.4); Red Cell Distribution Width 18.4 % (11.5-14.5); White Blood Count 22.4 K/mm3 (4.5-10.0)
[2022-04-10 04:23] LABS: INR 1.3; Prothrombin Time 15.2 Seconds (11.1-14.7)
[2022-04-10 04:24] LABS: Partial Thromboplastin Time 62.2 SECONDS (22.3-36.8)
[2022-04-10 04:33] LABS: Alanine Aminotransferase 30 U/L (6-35); Albumin Level 3.9 g/dL (3.5-5.1); Alkaline Phosphatase 142 U/L (38-126); Anion Gap 14 mmol/L (8-16); Aspartate Amino Transferase 55 U/L (14-36); Bilirubin,Total 0.5 mg/dL (0.2-1.3); Calcium 9.3 mg/dL (8.4-10.2); Carbon Dioxide 24 mmol/L (22-30); Chloride 86 mmol/L (98-107); Estimated CRCL calculation 13 ml/min; Estimated Glomerular Filt Rate 9; Glucose 132 mg/dL (65-110); Magnesium 2.4 mg/dL (1.6-2.3); Phosphorus 3.5 mg/dL (2.5-4.5); Potassium 3.9 mmol/L (3.4-5.0); Sodium 124 mmol/L (137-145)
[2022-04-10 04:53] LABS: Glucose Point of Care 136 mg/dl (65-105)
[2022-04-10 04:53] LABS: Glucose Point of Care 135 mg/dl (65-105)
[2022-04-10 04:57] LABS: Alveolar/Arterial O2 Gradient 80.2 mmHg; Carboxyhemoglobin 0.6 % THb (0-2.0); Fractional Inspired Oxygen 30 %; HCO3 ABG 28.1 mEq/l (22.0-26.0); Methemoglobin ABG 0.3 %THb (0-1.5); Oxygen Content ABG 19.8 %vol (16.0-22.0); Oxygen Saturation ABG 96.1 % (95.0-100.0); Oxyhemoglobin 94.6 % THb (90.0-100.0); PCO2 ABG 44.7 mmHg (35.0-45.0); PO2 ABG 81.2 mmHg (80.0-100.0); PO2 FiO2 Ratio Arterial Blood 2.71 %; Reduced Hemoglobin 4.5 %THb (0-5.0); Total Hemoglobin 14.9 g/dL (12.0-18.0); pH ABG 7.416 (7.350-7.450)
[2022-04-10 04:58] LABS: Device VENTILATOR; Modified Allen's Test Unable to perform; Site Drawn RIGHT RADIAL
[2022-04-10 04:59] LABS: Arterial Blood Gas PEEP 8 cmH2O; Arterial Blood Gas Tidal Volume 380 ml; Arterial Blood Gas Vent Mode CMV; Arterial Blood Gas Ventilator rate 16 /MIN
[2022-04-10] MEDS: HEPARIN SODIUM 5,000 UNITS/ML VIAL 3500 UNITS IV PUSH (05:43)
[2022-04-10] MEDS: LEVOTHYROXINE SODIUM 75 MCG TABLET PO (05:46)
[2022-04-10] MEDS: LEVOTHYROXINE SODIUM 100 MCG TABLET PO (05:46)
[2022-04-10 05:55] LABS: Blood Urea Nitrogen 129 mg/dL (7-17)
[2022-04-10 06:19] LABS: Glucose Point of Care 119 mg/dl (65-105)
[2022-04-10 06:51] LABS: Glucose Point of Care 111 mg/dl (65-105)
[2022-04-10 07:43] LABS: Glucose Point of Care 107 mg/dl (65-105)
--- NOTE | 2022-04-10 07:46 | PM.PNNEP ---
Progress Note: A&P Assessment and Plan (1) MARINA (acute kidney injury): Code(s): N17.9 - Acute kidney failure, unspecified Status: Acute Assessment and Plan: dialysis dependent for the last month. hemodialysis today. s/p renal biopsy (on 04/07/22) -- pathology pending . Should find something out today. (2) Stage 3b chronic kidney disease: Code(s): N18.32 - Chronic kidney disease, stage 3b Status: Chronic Assessment and Plan: baseline creatinine runs ~ 1.6 - 2.2mg/dl likely due to CAD/CHF, vascular disease, diabetes, and age-related change (3) Acute on chronic respiratory failure: Code(s): J96.20 - Acute and chronic respiratory failure, unspecified whether with hypoxia or hypercapnia Status: Acute Assessment and Plan: multifactorial: volume overload asthma/COPD(?) RAINA/OHS anemia Echo Shows good LV EF, grade 2 diastolic dysfunction, mild or moderate MR chest x-ray is overall a little better but still shows some fluid. Blood gases look good oxygenation doing pretty well on 30% FiO2 with 8 of PEEP will get another dialysis treatment today. (4) Hypertension: Code(s): I10 - Essential (primary) hypertension Status: Chronic Assessment and Plan: Systolic running 119-160. on verapamil and metoprolol Pulse 100 fluid removal should help as well (5) Anemia: Code(s): D64.9 - Anemia, unspecified Status: Acute Assessment and Plan: likely due to MARINA, CKD and acute illness Epogen with HD follow trend of H/H (6) Type 2 diabetes mellitus with hyperglycemia: Code(s): E11.65 - Type 2 diabetes mellitus with hyperglycemia Status: Chronic Assessment and Plan: accuchecks and SSI per hospitalist/cell coverer (7) Encephalopathy: Code(s): G93.40 - Encephalopathy, unspecified Status: Acute Assessment and Plan: The patient is off sedatives. CT brain nothing acute. Ammonia level okay. Blood gases look okay Other electrolytes look okay. sodium level is somewhat low. He is not making much urine. Most likely dilutional. Dialysis should help this. Possibly multifactorial. Her white count is high and she is running low-grade fevers. She is on antibiotics. Possibly still some affect from the sedatives? Her BUN is high. This should improve with dialysis. (8) Hyponatremia: Code(s): E87.1 - Hypo-osmolality and hyponatremia Status: Acute Assessment and Plan: most likely dilutional because the patient is not making much urine. Yesterday she had very high sugars which would contribute as well, but today the glucose is okay. Dialysis should help this. Subjective Date/time seen: 04/10/22 07:47 Interval history: 04/03 Patient became more short of breath last night and was intubated. Currently off her sedative for an hour or so and slowly waking up. She looks comfortable on the ventilator. She is going to get dialysis soon 04/04 The patient is on the ventilator. She is on propofol. She has just been hooked up to dialysis. She is on dry ultrafiltration and tolerating this well. She was seen at 7:00 a.m. The patient is going to get a kidney biopsy today. I talked with Gwen her daughter at length about the risks benefits alternatives and process of the biopsy and she agrees to proceed. 04/05 Patient is on the ventilator and sedated. She looks comfortable. To get dialysis later today. 04/06 pt is sedated on the vent looks comfortable on no pressors. she received DUF today and 4L removed. BP is doing okay 04/07 Gregoria is comfortable on the ventilator. She is on propofol. Her is in the room. We discussed the case. She is on dialysis currently and tolerating it well. The UF is set for 4L and the blood pressure is in the 120s without any pressors. She was seen at 10:00 a.m. 04/10 Patient is on the alicia
[2022-04-10] MEDS: HEPARIN SOD/D5W 100 UNITS/ML 25,000 UNITS/250 ML BAG 19 UNITS IV CONT ×2 (09:18→23:26)
[2022-04-10] MEDS: FERROUS SULFATE 324 MG TABLET PO ×2 (09:19→20:34)
[2022-04-10] MEDS: polyethylene glycoL 3350 17 GM POWD.PACK PO (09:19)
[2022-04-10] MEDS: MONTELUKAST SODIUM 10 MG TABLET PO (09:20)
[2022-04-10] MEDS: MINERAL OIL/WHITE PETROLATUM OINTMENT 1 APPLIC EACH EYE ×2 (09:20→20:34)
[2022-04-10] MEDS: CYANOCOBALAMIN 1,000 MCG TABLET 2000 MCG PO (09:20)
[2022-04-10] MEDS: PANTOPRAZOLE SODIUM IV 40 MG VIAL IV PUSH (09:20)
--- NOTE | 2022-04-10 09:47 | WPDNEURCNPN ---
Assessment and Plan Assessment and plan (1) Encephalopathy: Code(s): G93.40 - Encephalopathy, unspecified Status: Acute (2) Acute on chronic respiratory failure: Code(s): J96.20 - Acute and chronic respiratory failure, unspecified whether with hypoxia or hypercapnia Status: Acute (3) Hyponatremia: Code(s): E87.1 - Hypo-osmolality and hyponatremia Status: Acute (4) CHF (congestive heart failure): Code(s): I50.9 - Heart failure, unspecified Status: Acute (5) Chronic renal failure: Code(s): N18.9 - Chronic kidney disease, unspecified Status: Acute (6) Atrial fibrillation: Code(s): I48.91 - Unspecified atrial fibrillation Status: Chronic (7) DVT of lower extremity (deep venous thrombosis): Code(s): I82.409 - Acute embolism and thrombosis of unspecified deep veins of unspecified lower extremity Status: Acute Plan Gregoria Rae is a 71 year old female with a history of COPD, CHF, CAD, HTN, atrial fibrillation, LE DVT, type 2 DM currently admitted for respiratory failure secondary to fluid overload due to underlying renal and cardiac issues. She has not woken up since sedation was stopped, raising concerning for encephalopathy. Etiology is likely multifactorial - hyponatremia, significant uremia. Today with elevated WBC, possibly infectious as well. Patient does have multiple risk factors for stroke so that is a consideration as well, although unable to get MRI due to patient being intubated. - Will obtain routine EEG to assess background - MRI brain w/o contrast once extubated Consult date: 04/10/22 Time Seen: 09:47 Reason for consult: Encephalopathy HPI: Gregoria Rae is a 71 year old female with a history of COPD, CHF, CAD, HTN, atrial fibrillation, LE DVT, type 2 DM who presented initially on 03/31 due to respiratory distress. Patient was recently discharged from an admission for MARINA superimposed on CKD with fluid retention, resulting in respiratory failure. Patient presented again to [facility] the day after discharge due to worsening respiratory status. She was admitted and initially required BiPAP, but on 04/02 was notably unresponsive so she was intubated. CT head on that day was negative for acute process. Admission again has been complicated by fluid retention. She underwent kidney biopsy on 04/07 for which her oral anticoagulation was held, and she was on a heparin drip. Most recently on 04/08 she was taken off all sedation (propofol), but there were concerns that she was not having any improvement in her mental status -- not following commands or opening eyes. She was initially on several sedating medications including gabapentin, tramadol, and Xanax, which were all discontinued in hopes to improve mental status. Repeat CT head from 04/09 was negative for any acute changes. Today's labs are significant for elevated WBC 22.4, hyponatremia (124), and uremia (129). Ammonia level is normal. 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 Chronic diastolic (congestive) heart failure Chronic kidney disease, stage 3 unspecified Chronic kidney disease, stage III (moderate) COPD (chronic obstructive pulmonary disease) Coronary artery disease involving [place] heart without angina pectoris Depression DVT (deep venous thrombosis) ARACELY (generalized anxiety disorder) GERD without esophagitis History of stroke Hypertensive heart disease with heart failure and stage 3 chronic kidney disease Hyponatremia Hypothyroid Left knee DJD Long-term insulin use Peripheral polyneuropathy Pre-ulcerative calluses Sepsis Type 2 diabetes mellitus with hyperglycemia Family History Family History Father
[2022-04-10 09:56] LABS: Glucose Point of Care 103 mg/dl (65-105)
[2022-04-10 09:56] LABS: Glucose Point of Care 98 mg/dl (65-105)
[2022-04-10 10:22] LABS: Glucose Point of Care 136 mg/dl (65-105)
[2022-04-10] MEDS: EPOETIN ALFA-EPBX 10,000 UNITS/ML VIAL 10000 UNITS IV PUSH (10:40)
[2022-04-10] MEDS: SODIUM CHLORIDE 0.9% IV 1,000 ML 999 ML IV CONT (10:41)
--- NOTE | 2022-04-10 11:19 | PCFNICU ---
ICU Rounding Note: Pt current nutrition is Nepro at 35 ml/h providing 1386 kcals, 62 g protein. Prosource modulars TID for additional 240 kcals and 60 g protein. Nutrition recommendation: Titrate tube feeding rate up to Nepro @ 45 ml/h with Prsource modular BID. Total 1942 kcals, 120 g protein, 719 g fluid. Flushes 30 ml q 4 hours. Last recorded weight is 110.8 kg. Bowel Motility: BM +1 04/09/22 Labs Reviewed:Hgb 9.5, Hct 30.7, Na 124, eGFR 9, BUN 129, Creat 4.6, Glu 136 Meds Noted: Propofol is off. No sedation Skin: mepilex to buttocks protective Additional Notes: Sedation is off. No propofol running so increase tube feeding rate to Nepro @ 45 ml/h: 1782 kcals, 80 g protein, 719 ml free water. Beneprotein BID for additional 160 kcals, 40 g protein Following daily in ICU rounds. Monitoring labs, tolerance, stool pattern, meds, skin, plan of care. Follow daily in ICU rounds.
--- NOTE | 2022-04-10 11:54 | WPDINTPN ---
Progress Note: A&P Assessment and Plan (1) Acute on chronic respiratory failure: Code(s): J96.20 - Acute and chronic respiratory failure, unspecified whether with hypoxia or hypercapnia Status: Acute Assessment and Plan: Multifactorial acute on chronic respiratory failure secondary to congestive heart failure, restrictive lung disease from obesity hypoventilation, history of asthma, volume overload from kidney disease, large pleural effusions 04/02 Patient was on BiPAP but was intubated due to poor mental status Vent settings and ABG reviewed 04/03: Chest CT shows There are airspace opacities bilaterally with a dependent predominance, consistent with atelectasis. There are moderate-sized pleural effusions. Patient is getting hemodialysis today to remove fluid Patient received hemodialysis on 04/02, 06/03, 04/04, 04/05, 04/06, 04/07 -04/04/2022: Left-sided thoracenteses with 1000 mL of fluid removal which was done by IR -04/05/2022: Right thoracentesis with 950 ml of fluid removal by IR CXR this morning shows: ?Slight interval increase in opacities in bilateral mid and lower lung zones consistent with small bilateral pleural effusions and associated atelectasis, pulmonary edema and/or pneumonia Continue bronchodilators -off sedation since 04/08, 8:00 a.m. (2) CHF (congestive heart failure): Code(s): I50.9 - Heart failure, unspecified Status: Acute Assessment and Plan: Hemodialysis for fluid removal -left thoracentesis done on 04/04 -right thoracentesis done on 04/05 (3) Whlmr-el-pjyatyp kidney injury: Code(s): N17.9 - Acute kidney failure, unspecified; N18.9 - Chronic kidney disease, unspecified Status: Acute Assessment and Plan: Patient is on hemodialysis and has right tunnel catheter Nephrology is following Patient has been dialyzed since 04/02 to 04/10 daily significant fluid removal. -04/07/2022 patient had a left kidney biopsy by interventional radiologist, pathology pending (4) Chronic anticoagulation: Code(s): Z79.01 - retirement (current) use of anticoagulants Status: Acute Assessment and Plan: Patient is on warfarin for AFib and DVT history She needs kidney biopsy hence her Coumadin is being reversed. She was also received FFP and IR physician is requesting that she be off of Plavix for 5 days to minimize risk of bleeding for biopsy. She received 4 units of FFP on 04/03 and 2 units of FFP on 04/04. -INR 1.4 this morning -04/08: started patient on heparin infusion for AFib and DVT -Plavix is also on hold (5) Atrial fibrillation: Code(s): I48.91 - Unspecified atrial fibrillation Status: Chronic Assessment and Plan: Currently in sinus rhythm Continue heparin infusion for anticoagulation (6) DVT of lower extremity (deep venous thrombosis): Code(s): I82.409 - Acute embolism and thrombosis of unspecified deep veins of unspecified lower extremity Status: Acute Assessment and Plan: 02/20/2022 lower extremity venous Dopplers: Occlusive appearing DVT in the distal left femoral vein and left popliteal vein Currently off anticoagulation due to procedure -heparin infusion was started on 04/08/2022 (7) Pleural effusion: Code(s): J90 - Pleural effusion, not elsewhere classified Status: Acute Assessment and Plan: Left-sided thoracentesis was done on 04/04 -right-sided thoracentesis done on 04/05 (8) Encephalopathy: Code(s): G93.40 - Encephalopathy, unspecified Status: Acute Assessment and Plan: Patient was unresponsive on 04/02 and had to be intubated Likely toxic metabolic encephalopathy Her blood glucose and ABG abnormal but would not explain her mental status CT head done and showed IMPRESSION: 1. 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 2. Mild nonspecific cerebral white matter disease, which likely represents chronic small vessel ischemic disease. Patient on so on sofia
[2022-04-10 12:20] LABS: Partial Thromboplastin Time 75.6 SECONDS (22.3-36.8)
[2022-04-10] MEDS: INSULIN HUMAN REGULAR (*BKC) 100 UNITS in SODIUM CHLORIDE 0.9% IV 99 ML 6.8 UNITS IV CONT (12:32)
[2022-04-10 13:08] LABS: Glucose Point of Care 145 mg/dl (65-105)
[2022-04-10 13:43] LABS: Glucose Point of Care 145 mg/dl (65-105)
[2022-04-10 13:43] LABS: Glucose Point of Care 197 mg/dl (65-105)
[2022-04-10 14:59] LABS: Glucose Point of Care 204 mg/dl (65-105)
[2022-04-10 17:05] LABS: Glucose Point of Care 231 mg/dl (65-105)
[2022-04-10 17:05] LABS: Glucose Point of Care 214 mg/dl (65-105)
[2022-04-10 19:13] LABS: Glucose Point of Care 39 mg/dl (65-105)
[2022-04-10 19:29] LABS: Glucose Point of Care 90 mg/dl (65-105)
[2022-04-10 19:45] LABS: Partial Thromboplastin Time 81.6 SECONDS (22.3-36.8)
[2022-04-10 20:47] LABS: Glucose Point of Care 79 mg/dl (65-105)
[2022-04-10 21:04] LABS: Glucose Point of Care 144 mg/dl (65-105)
[2022-04-10 22:27] LABS: Glucose Point of Care 179 mg/dl (65-105)
[2022-04-11] VITALS (135 sets, daily range): BP systolic 76–158; BP diastolic 47–95; PULSE 82–109; RESP 0–34; TEMP 37–37.9; O2SAT 92–100
[2022-04-11 00:03] LABS: Vancomycin Random 17.3 ug/mL (10-20)
[2022-04-11] MEDS: IPRATROPIUM BR 0.02% INH SOLN 0.5 MG/2.5 ML VIAL INHALATION ×4 (01:21→20:02)
[2022-04-11 01:41] LABS: Glucose Point of Care 178 mg/dl (65-105)
[2022-04-11 01:42] LABS: Partial Thromboplastin Time 78.5 SECONDS (22.3-36.8)
[2022-04-11 02:10] LABS: Glucose Point of Care 292 mg/dl (65-105)
[2022-04-11 02:24] LABS: Add Urine Microscopic? YES; Appearance Urine Turbid (Clear); Bilirubin Urine 2+ (Negative); Blood Urine 2+ (Negative); Color Urine Brown (Yellow); Glucose Urine UA Negative (Negative); Ketones Urine 1+ mg/dL (Negative); Leukocyte Esterase Ur 3+ LEU/UL (Negative); Nitrate Urine Negative (Negative); Protein Urine 3+ mg/dL (Negative); Specific Grav Ur 1.025 (1.001-1.035); Urobilinogen Urine 0.2 mg/dL (<2.0)
[2022-04-11 02:29] LABS: RBC Urine >75 /hpf (0-2); Squamous Epithelial Cell Urine Many /hpf (Few); WBC Urine >75 /hpf
[2022-04-11 03:21] LABS: Glucose Point of Care 337 mg/dl (65-105)
[2022-04-11] MEDS: INSULIN HUMAN REGULAR (*BKC) 100 UNITS in SODIUM CHLORIDE 0.9% IV 99 ML 9.9 UNITS IV CONT (04:04)
[2022-04-11 04:05] LABS: Hematocrit 31.4 % (37.0-47.0); Hemoglobin 9.5 g/dL (12.0-15.0); Mean Corpuscular HGB Conc 30.3 g/dl (32-36); Mean Corpuscular Hemoglobin 23.3 pg (26-34); Platelet Count Result 551 k/mm3 (150-375); Red Blood Count 4.08 M/mm3 (4.2-5.4); Red Cell Distribution Width 18.3 % (11.5-14.5); White Blood Count 25.4 K/mm3 (4.5-10.0)
[2022-04-11 04:14] LABS: Glucose Point of Care 307 mg/dl (65-105)
[2022-04-11 04:30] LABS: Alanine Aminotransferase 49 U/L (6-35); Albumin Level 3.7 g/dL (3.5-5.1); Alkaline Phosphatase 170 U/L (38-126); Anion Gap 15 mmol/L (8-16); Aspartate Amino Transferase 71 U/L (14-36); Bilirubin,Total 0.6 mg/dL (0.2-1.3); Blood Urea Nitrogen 88 mg/dL (7-17); Calcium 8.9 mg/dL (8.4-10.2); Carbon Dioxide 22 mmol/L (22-30); Chloride 90 mmol/L (98-107); Estimated CRCL calculation 15 ml/min; Estimated Glomerular Filt Rate 11; Glucose 324 mg/dL (65-110); Magnesium 2.3 mg/dL (1.6-2.3); Phosphorus 2.5 mg/dL (2.5-4.5); Potassium 3.6 mmol/L (3.4-5.0); Sodium 127 mmol/L (137-145); Triglycerides 173 mg/dL (<150)
[2022-04-11 04:31] LABS: Anisocytosis 1+ (NORMAL); Band Neutrophils Percent 8 % (0-6); Lymphocytes Absolute Manual 1.77 K/mm3 (1.1-4.5); Metamyelocytes Percent 2 %; Monocytes Absolute Manual 1.01 K/mm3 (0.1-0.90); Monocytes Percent Manual 4 % (3-9); Neutrophils Absolute Manual 22.09 K/mm3 (1.7-7.2); Neutrophils Percent Manual 79 % (46-73); Total Cells Counted 100
[2022-04-11 04:32] LABS: Hypochromasia 1+ (NORMAL); Macrocytosis 1+ (NORMAL); Microcytosis 1+ (NORMAL); Schistocytes None Seen (NORMAL)
[2022-04-11 04:33] LABS: Hypersegmented Neutrophils Present
[2022-04-11 05:00] LABS: Glucose Point of Care 184 mg/dl (65-105)
[2022-04-11 05:16] LABS: Glucose Point of Care 215 mg/dl (65-105)
[2022-04-11] MEDS: LEVOTHYROXINE SODIUM 100 MCG TABLET PO (05:38)
[2022-04-11] MEDS: LEVOTHYROXINE SODIUM 75 MCG TABLET PO (05:38)
[2022-04-11 06:22] LABS: PCO2 ABG 38.5 mmHg (35.0-45.0); pH ABG 7.435 (7.350-7.450)
[2022-04-11 06:23] LABS: Alveolar/Arterial O2 Gradient 81.8 mmHg; Base Excess ABG 1.1 mEq/l (+/-2.0); HCO3 ABG 25.3 mEq/l (22.0-26.0); Oxygen Saturation ABG 95.9 % (95.0-100.0); PO2 ABG 86.9 mmHg (80.0-100.0)
[2022-04-11 06:26] LABS: Carboxyhemoglobin 0.1 % THb (0-2.0); Methemoglobin ABG 0.2 %THb (0-1.5); Oxygen Content ABG 14.9 %vol (16.0-22.0); Oxyhemoglobin 95.9 % THb (90.0-100.0); Reduced Hemoglobin 3.8 %THb (0-5.0); Site Drawn LEFT RADIAL
[2022-04-11 06:27] LABS: Device VENTILATOR; Modified Allen's Test Pass
[2022-04-11 06:28] LABS: Arterial Blood Gas PEEP 8 cmH2O; Arterial Blood Gas Tidal Volume 380 ml; Arterial Blood Gas Vent Mode CMV; Arterial Blood Gas Ventilator rate 16 /MIN
[2022-04-11 06:59] LABS: Glucose Point of Care 134 mg/dl (65-105)
[2022-04-11 07:28] LABS: INR 1.3; Prothrombin Time 15.2 Seconds (11.1-14.7)
[2022-04-11 07:30] LABS: Partial Thromboplastin Time 78.2 SECONDS (22.3-36.8)
[2022-04-11] MEDS: PANTOPRAZOLE SODIUM IV 40 MG VIAL IV PUSH (08:10)
[2022-04-11] MEDS: CYANOCOBALAMIN 1,000 MCG TABLET 2000 MCG PO (08:10)
[2022-04-11] MEDS: MONTELUKAST SODIUM 10 MG TABLET PO (08:11)
[2022-04-11] MEDS: MINERAL OIL/WHITE PETROLATUM OINTMENT 1 APPLIC EACH EYE ×2 (08:11→20:47)
[2022-04-11] MEDS: FERROUS SULFATE 324 MG TABLET PO ×2 (08:11→15:56)
[2022-04-11 08:27] LABS: Glucose Point of Care 113 mg/dl (65-105)
--- NOTE | 2022-04-11 08:38 | WPDNEUROLOGY ---
Neurology EEG Report General Information Date of Study: 04/10/22 TEST Routine EEG DIAGNOSIS Encephalopathy CONDITION OF RECORDING Unresponsive EEG NUMBER [id number] CLINICAL HISTORY Patient is on vent in ICU. She has been off all sedation for past 2 days but still remains unresponsive. EEG DESCRIPTION There is no posterior dominant rhythm or well-formed anterior-posterior gradient. The background rhythm is slow with delta and theta range activity. There are intermittent triphasic waves. There are no electrographic seizures or epileptiform discharges during the recording. No sleep architecture was observed. IMPRESSION This is an abnormal EEG due to the presence of diffuse slowing and intermittent triphasic waves. There are no electrographic seizures or epileptiform features identified. These findings can be seen in the setting of metabolic encephalopathy. Clinical correlation is recommended.
[2022-04-11 09:10] LABS: Glucose Point of Care 120 mg/dl (65-105)
--- NOTE | 2022-04-11 09:12 | PM.PNNEP ---
Progress Note: A&P Assessment and Plan (1) MARINA (acute kidney injury): Code(s): N17.9 - Acute kidney failure, unspecified Status: Acute Assessment and Plan: dialysis dependent for the last month. hemodialysis today. renal biopsy showed substantial signs of diabetes in the glomeruli including nodules and thickened basement membranes. Interstitial showed ATN. It also showed about 20-30% fibrosis, not as much as I would have thought. This looks like acute on chronic renal insufficiency. The severity of the changes in the glomeruli is a bit disconnected with the mild changes in the interstitium. No signs of paraprotein or antibody mediated issues. (2) Stage 3b chronic kidney disease: Code(s): N18.32 - Chronic kidney disease, stage 3b Status: Chronic Assessment and Plan: baseline creatinine runs ~ 1.6 - 2.2mg/dl likely due to CAD/CHF, vascular disease, diabetes, and age-related change (3) Acute on chronic respiratory failure: Code(s): J96.20 - Acute and chronic respiratory failure, unspecified whether with hypoxia or hypercapnia Status: Acute Assessment and Plan: multifactorial: volume overload asthma/COPD(?) RAINA/OHS anemia Echo Shows good LV EF, grade 2 diastolic dysfunction, mild or moderate MR We seem to be making headway in fluid burden. Yesterday the blood pressure dropped with ultrafiltration. I do not think this is because we have got rid of all the fluid. Rather it might be related to her fever and elevated white count. Will do another treatment today and remove more fluid. Will watch the blood pressure closely. (4) Hypertension: Code(s): I10 - Essential (primary) hypertension Status: Chronic Assessment and Plan: Systolic running 119-160 when not on dialysis.. on verapamil and metoprolol Pulse 100 fluid removal should help. (5) Anemia: Code(s): D64.9 - Anemia, unspecified Status: Acute Assessment and Plan: likely due to MARINA, CKD and acute illness Epogen with HD Hemoglobin 9.5 (6) Type 2 diabetes mellitus with hyperglycemia: Code(s): E11.65 - Type 2 diabetes mellitus with hyperglycemia Status: Chronic Assessment and Plan: accuchecks and SSI per hospitalist/printer apprentice (7) Encephalopathy: Code(s): G93.40 - Encephalopathy, unspecified Status: Acute Assessment and Plan: The patient is off sedatives. CT brain nothing acute. Ammonia level okay. Blood gases look okay Other electrolytes look okay. sodium level is somewhat low. He is not making much urine. Most likely dilutional. Possibly multifactorial. Her white count is high and she is running low-grade fevers. She is on antibiotics. Possibly still some affect from the sedatives? Her BUN is better will do regular dialysis today to get this down even more.. This should Her sodium level is better today at 127.. This should not be contributing much to her mental status. It will correct further with dialysis again today. (8) Hyponatremia: Code(s): E87.1 - Hypo-osmolality and hyponatremia Status: Acute Assessment and Plan: most likely dilutional because the patient is not making much urine. Sugars still okay. Sodium up to 127. Subjective Date/time seen: 04/11/22 09:12 Interval history: 04/03 Patient became more short of breath last night and was intubated. Currently off her sedative for an hour or so and slowly waking up. She looks comfortable on the ventilator. She is going to get dialysis soon 04/04 The patient is on the ventilator. She is on propofol. She has just been hooked up to dialysis. She is on dry ultrafiltration and tolerating this well. She was seen at 7:00 a.m. The patient is going to get a kidney biopsy today. I talked with Gwen her daughter at length about the risks benefits alternatives and process
[2022-04-11 11:02] LABS: Glucose Point of Care 142 mg/dl (65-105)
--- NOTE | 2022-04-11 11:29 | PCNFU ---
Nutrition Follow-Up Complete: Inadequate oral intake related to NPO, mechanical ventilation as evidenced by need for full tube feeding Goal: Meet estimated protein energy needs Patient is progressing towards goal. We will continue current goal. Pt current nutrition is Nepro at 45 ml/hr. Last recorded weight is 109.3 kg. Bowel Motility: +BM reported 04/11 Labs Reviewed:Glu 324, BUN 88, Cr 4.0,GFR 11, Na 127 Meds Noted:Coumadin, Ferrous Sulfate, Miralax, Coumadin,Lantus, NovoLog, Protonix, Synthroid, B12 Skin: WNL Additional Notes: Patient remains on mechanical vent and tube feedings of Nepro at 45 ml/hr. Prosource BID providing an additional 160 kcals and 40 kcals. Totoal kcal intake 1942 kcals/120 gms protein/719 ml water. Meeting 100% kcal and protein needs. Flush 30 ml q 4 hours. Dialysis today. Agree with diet orders. Monitoring labs, tolerance, stool pattern, meds, skin, plan of care every Sunday and Sunday. Follow daily in ICU rounds.
[2022-04-11] MEDS: HEPARIN SOD/D5W 100 UNITS/ML 25,000 UNITS/250 ML BAG 19 UNITS IV CONT (11:46)
[2022-04-11 12:56] LABS: Glucose Point of Care 184 mg/dl (65-105)
--- NOTE | 2022-04-11 13:08 | WPDINTPN ---
Progress Note: A&P Assessment and Plan (1) Leukocytosis: Code(s): D72.829 - Elevated white blood cell count, unspecified Status: Acute Assessment and Plan: Leukocytosis with low-grade fevers -patient currently on cefepime and vancomycin -04/11/2022 added levofloxacin renally dosed -will check venous Dopplers of upper and lower extremities (2) Encephalopathy: Code(s): G93.40 - Encephalopathy, unspecified Status: Acute Assessment and Plan: Patient was unresponsive on 04/02 and had to be intubated Likely toxic metabolic encephalopathy Her blood glucose and ABG abnormal but would not explain her mental status CT head done and showed IMPRESSION: 1. 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 2. Mild nonspecific cerebral white matter disease, which likely represents chronic small vessel ischemic disease. Patient on so on some medication that would cause sedation including Neurontin tramadol and Xanax which have been discontinued Now on sedation holiday patient was awake and following commands -off all sedation since 04/08/2022 -check CT brain noncontrast -ammonia level normal on 04/09 -Neurology consulted -04/10/2022 EEG did not show any, consistent with metabolic encephalopathy (3) Acute on chronic respiratory failure: Code(s): J96.20 - Acute and chronic respiratory failure, unspecified whether with hypoxia or hypercapnia Status: Acute Assessment and Plan: Multifactorial acute on chronic respiratory failure secondary to congestive heart failure, restrictive lung disease from obesity hypoventilation, history of asthma, volume overload from kidney disease, large pleural effusions 04/02 Patient was on BiPAP but was intubated due to poor mental status Vent settings and ABG reviewed 04/03: Chest CT shows There are airspace opacities bilaterally with a dependent predominance, consistent with atelectasis. There are moderate-sized pleural effusions. Patient is getting hemodialysis today to remove fluid Patient received hemodialysis on 04/02, 06/03, 04/04, 04/05, 04/06, 04/07 -04/04/2022: Left-sided thoracenteses with 1000 mL of fluid removal which was done by IR -04/05/2022: Right thoracentesis with 950 ml of fluid removal by IR CXR this morning shows: ?Mild opacities in the bilateral mid and lower lung zones likely combination of mild pulmonary edema and discoid atelectasis although differential includes pneumonia.. Decreased tiny bilateral pleural effusions Continue bronchodilators -off sedation since 04/08, 8:00 a.m. (4) CHF (congestive heart failure): Code(s): I50.9 - Heart failure, unspecified Status: Acute Assessment and Plan: Hemodialysis for fluid removal -left thoracentesis done on 04/04 -right thoracentesis done on 04/05 (5) Prraf-ii-arxyacf kidney injury: Code(s): N17.9 - Acute kidney failure, unspecified; N18.9 - Chronic kidney disease, unspecified Status: Acute Assessment and Plan: Patient is on hemodialysis and has right tunnel catheter Nephrology is following Patient has been dialyzed since 04/02 to 04/10 daily significant fluid removal. -04/07/2022 patient had a left kidney biopsy by interventional radiologist, renal biopsy showed substantial signs of diabetes in the glomeruli including nodules and? thickened basement membranes.? Interstitial showed ATN.? It also showed about 20-30% fibrosis (6) Chronic anticoagulation: Code(s): Z79.01 - joint terminal attack controller (current) use of anticoagulants Status: Acute Assessment and Plan: Patient is on warfarin for AFib and DVT history She needs kidney biopsy hence her Coumadin is being reversed. She was also received FFP and IR physician is requesting that she be off of Plavix for 5 days to minimize risk of bleeding for biopsy. She received 4 units of FFP on 04/03 and 2 units of FFP on 04/04. -INR 1.4 this morning -04/08: started patient on heparin infusion for AFib and DVT -Plavi
[2022-04-11 14:26] LABS: Glucose Point of Care 260 mg/dl (65-105)
[2022-04-11 15:01] LABS: Glucose Point of Care 265 mg/dl (65-105)
[2022-04-11 16:11] LABS: Glucose Point of Care 268 mg/dl (65-105)
[2022-04-11 17:36] LABS: Sodium 132 mmol/L (137-145)
[2022-04-11 18:52] LABS: Glucose Point of Care 213 mg/dl (65-105)
[2022-04-11 20:53] LABS: Glucose Point of Care 154 mg/dl (65-105)
[2022-04-11 20:54] LABS: Glucose Point of Care 273 mg/dl (65-105)
[2022-04-11 21:29] LABS: Vancomycin Random 23.9 ug/mL (10-20)
[2022-04-11 22:41] LABS: Glucose Point of Care 166 mg/dl (65-105)
[2022-04-11] MEDS: INSULIN HUMAN REGULAR (*BKC) 100 UNITS in SODIUM CHLORIDE 0.9% IV 99 ML IV CONT (22:47)
[2022-04-11 23:59] LABS: Glucose Point of Care 179 mg/dl (65-105)
[2022-04-12] VITALS (25 sets, daily range): BP systolic 101–176; BP diastolic 52–118; PULSE 87–100; RESP 12–25; TEMP 37.3–37.7; O2SAT 97–100
[2022-04-12 01:32] LABS: Glucose Point of Care 204 mg/dl (65-105)
[2022-04-12] MEDS: HEPARIN SOD/D5W 100 UNITS/ML 25,000 UNITS/250 ML BAG 19 UNITS IV CONT ×2 (01:43→17:55)
[2022-04-12] MEDS: IPRATROPIUM BR 0.02% INH SOLN 0.5 MG/2.5 ML VIAL INHALATION ×2 (02:30→20:30)
[2022-04-12 03:05] LABS: Glucose Point of Care 163 mg/dl (65-105)
[2022-04-12 04:53] LABS: Glucose Point of Care 164 mg/dl (65-105)
[2022-04-12 05:14] LABS: Hematocrit 34.6 % (37.0-47.0); Hemoglobin 10.2 g/dL (12.0-15.0); Mean Corpuscular HGB Conc 29.5 g/dl (32-36); Mean Corpuscular Hemoglobin 23.4 pg (26-34); Mean Corpuscular Volume 79.5 fl (80-100); Mean Platelet Volume 9.9 fl (7.4-10.4); Platelet Count Result 516 k/mm3 (150-375); Red Blood Count 4.35 M/mm3 (4.2-5.4); Red Cell Distribution Width 18.5 % (11.5-14.5); White Blood Count 29.9 K/mm3 (4.5-10.0)
[2022-04-12 05:17] LABS: Alanine Aminotransferase 60 U/L (6-35); Alkaline Phosphatase 179 U/L (38-126); Anion Gap 11 mmol/L (8-16); Aspartate Amino Transferase 74 U/L (14-36); Bilirubin,Total 0.5 mg/dL (0.2-1.3); Blood Urea Nitrogen 65 mg/dL (7-17); Calcium 9.5 mg/dL (8.4-10.2); Carbon Dioxide 28 mmol/L (22-30); Chloride 90 mmol/L (98-107); Estimated CRCL calculation 16 ml/min; Estimated Glomerular Filt Rate 12; Glucose 164 mg/dL (65-110); Magnesium 2.3 mg/dL (1.6-2.3); Phosphorus 2.2 mg/dL (2.5-4.5); Potassium 3.6 mmol/L (3.4-5.0); Sodium 129 mmol/L (137-145)
[2022-04-12 05:27] LABS: INR 1.3; Prothrombin Time 15.6 Seconds (11.1-14.7)
[2022-04-12 05:29] LABS: Partial Thromboplastin Time 86.9 SECONDS (22.3-36.8)
[2022-04-12 05:31] LABS: Alveolar/Arterial O2 Gradient 78.7 mmHg; Base Excess ABG 3.3 mEq/l (+/-2.0); Carboxyhemoglobin 0.2 % THb (0-2.0); Fractional Inspired Oxygen 30 %; HCO3 ABG 28.2 mEq/l (22.0-26.0); Methemoglobin ABG 0.1 %THb (0-1.5); Oxygen Content ABG 14.9 %vol (16.0-22.0); Oxygen Saturation ABG 96.4 % (95.0-100.0); Oxyhemoglobin 95.8 % THb (90.0-100.0); PO2 ABG 83.5 mmHg (80.0-100.0); PO2 FiO2 Ratio Arterial Blood 2.78 %; Reduced Hemoglobin 3.9 %THb (0-5.0); pH ABG 7.424 (7.350-7.450)
[2022-04-12 05:32] LABS: Modified Allen's Test Pass; Site Drawn LEFT RADIAL
[2022-04-12 05:33] LABS: Arterial Blood Gas PEEP 8 cmH2O; Arterial Blood Gas Tidal Volume 380 ml; Arterial Blood Gas Vent Mode CMV; Arterial Blood Gas Ventilator rate 16 /MIN; Device VENTILATOR
[2022-04-12 05:34] LABS: Anisocytosis 1+ (NORMAL); Band Neutrophils Percent 5 % (0-6); Eosinophils Absolute Manual 0.59 K/mm3 (0.02-0.5); Eosinophils Percent Manual 2 % (0-4); Lymphocytes Absolute Manual 5.08 K/mm3 (1.1-4.5); Metamyelocytes Percent 1 %; Monocytes Absolute Manual 1.19 K/mm3 (0.1-0.90); Monocytes Percent Manual 4 % (3-9); Neutrophils Absolute Manual 22.72 K/mm3 (1.7-7.2); Neutrophils Percent Manual 71 % (46-73); Platelet Estimate Increased (Adequate); Polychromasia 1+ (NORMAL); Total Cells Counted 100
[2022-04-12 05:35] LABS: Macrocytosis 1+ (NORMAL)
[2022-04-12 05:40] LABS: Schistocytes None Seen (NORMAL)
[2022-04-12 06:39] LABS: Glucose Point of Care 145 mg/dl (65-105)
[2022-04-12] MEDS: LEVOTHYROXINE SODIUM 100 MCG TABLET PO (06:55)
[2022-04-12] MEDS: LEVOTHYROXINE SODIUM 75 MCG TABLET PO (06:55)
[2022-04-12 08:10] LABS: Hepatitis B Surface Antigen Negative (Negative)
[2022-04-12 08:16] LABS: HAV RESULT Negative (Negative); Hepatitis B Core IgM Result Negative (Negative)
[2022-04-12 08:27] LABS: Hepatitis C Virus Antibody Negative (Negative)
[2022-04-12] MEDS: polyethylene glycoL 3350 17 GM POWD.PACK PO (08:46)
[2022-04-12] MEDS: PANTOPRAZOLE SODIUM IV 40 MG VIAL IV PUSH (08:46)
[2022-04-12] MEDS: CYANOCOBALAMIN 1,000 MCG TABLET 2000 MCG PO (08:46)
[2022-04-12] MEDS: FERROUS SULFATE 324 MG TABLET PO ×2 (08:47→18:02)
[2022-04-12] MEDS: MINERAL OIL/WHITE PETROLATUM OINTMENT 1 APPLIC EACH EYE ×2 (08:47→20:32)
[2022-04-12] MEDS: MONTELUKAST SODIUM 10 MG TABLET PO (08:47)
--- NOTE | 2022-04-12 09:31 | WPDINTPN ---
Progress Note: A&P Assessment and Plan (1) Leukocytosis: Code(s): D72.829 - Elevated white blood cell count, unspecified Status: Acute Assessment and Plan: Increasing WBC count with low-grade fevers, -Street catheter is out, could be related to dialysis line, -patient currently on cefepime and vancomycin (04/10) and levofloxacin (04/11) -04/11/2022 bilateral lower extremity venous Dopplers: Negative for DVT -04/11/2022 bilateral upper extremity venous Dopplers:Patent bilateral upper extremity veins. No evidence of deep venous thrombosis. 04/11/2022: Right upper quadrant ultrasound: Normal limited abdominal ultrasound 04/11/2022 pancultured 04/12/2022 CT scan of the chest abdomen and pelvis: Improving bilateral airspace consolidation which may represent resolving pneumonia and/or atelectasis.: Improving pleural effusions.: Improving small pericardial effusion.: There is mild thickening of the rectum with subtle perirectal infiltration, suspicious for proctitis, new since prior examination. (2) Encephalopathy: Code(s): G93.40 - Encephalopathy, unspecified Status: Acute Assessment and Plan: Patient was unresponsive on 04/02 and had to be intubated Likely toxic metabolic encephalopathy Her blood glucose and ABG abnormal but would not explain her mental status CT head done and showed IMPRESSION: 1. 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 2. Mild nonspecific cerebral white matter disease, which likely represents chronic small vessel ischemic disease. Patient on so on some medication that would cause sedation including Neurontin tramadol and Xanax which have been discontinued Now on sedation holiday patient was awake and following commands -off all sedation since 04/08/2022 -04/09/2022 CT brain with no acute intracranial abnormalities, chronic bilateral lacunar infarctions, chronic age-related findings -ammonia level normal on 04/09 -patient neurology evaluation recommendation -04/10/2022 EEG did not show any, consistent with metabolic encephalopathy -trying to send patient MRI to a different hospital and get her back to our facility after the MRI, have called [facility] and awaiting the call back (3) Acute on chronic respiratory failure: Code(s): J96.20 - Acute and chronic respiratory failure, unspecified whether with hypoxia or hypercapnia Status: Acute Assessment and Plan: Multifactorial acute on chronic respiratory failure secondary to congestive heart failure, restrictive lung disease from obesity hypoventilation, history of asthma, volume overload from kidney disease, large pleural effusions 04/02 Patient was on BiPAP but was intubated due to poor mental status Vent settings and ABG reviewed 04/03: Chest CT shows There are airspace opacities bilaterally with a dependent predominance, consistent with atelectasis. There are moderate-sized pleural effusions. Patient is getting hemodialysis today to remove fluid Patient received hemodialysis on 04/02, 06/03, 04/04, 04/05, 04/06, 04/07 -04/04/2022: Left-sided thoracenteses with 1000 mL of fluid removal which was done by IR -04/05/2022: Right thoracentesis with 950 ml of fluid removal by IR CXR this morning shows: ?Mild opacities in the bilateral mid and lower lung zones likely combination of mild pulmonary edema and discoid atelectasis although differential includes pneumonia.. Decreased tiny bilateral pleural effusions Continue bronchodilators -off sedation since 04/08, 8:00 a.m. (4) CHF (congestive heart failure): Code(s): I50.9 - Heart failure, unspecified Status: Acute Assessment and Plan: Hemodialysis for fluid removal -left thoracentesis done on 04/04 -right thoracentesis done on 04/05 (5) [id number] kidney injury: Code(s): N17.9 - Acute kidney failure, unspecified; N18.9 - Chronic kidney disease, unspecified Status: Acute Assessment and Plan: Patient is on hemodialysis and
--- NOTE | 2022-04-12 10:25 | PCRCNOTE ---
Window of time for administration has passed. See next scheduled administration.
[2022-04-12] MEDS: ERTAPENEM SODIUM 0.5 GM in SODIUM CHLORIDE 0.9% IV 50 ML IVPB (11:26)
--- NOTE | 2022-04-12 11:40 | PCFNICU ---
ICU Rounding Note: Pt current nutrition is Nepro at 45 ml/hr Last recorded weight is 106 kg. Bowel Motility:+Bm reported 04/12 Labs Reviewed:Na 129, BUN 65, Cr 3.8,Glu 165, GFR 12, Meds Noted: Ferrous Sulfate, Miralax, Coumadin,Lantus, NovoLog, Protonix, Synthroid, B12 Skin: WNL Additional Notes: Patient remains on mechanical vent and tube feedings of Nepro at 45 ml/hr and tolerating. Protein Modular of Prosource BID providing an additional 160 kcals and 40 gms protein. Flush 30 ml q 4 hours. Agree with diet orders. Following daily in ICU rounds. Monitoring labs, tolerance, stool pattern, meds, skin, plan of care.
[2022-04-12 12:40] LABS: Glucose Point of Care 148 mg/dl (65-105)
[2022-04-12 12:40] LABS: Glucose Point of Care 158 mg/dl (65-105)
[2022-04-12 12:40] LABS: Glucose Point of Care 155 mg/dl (65-105)
[2022-04-12 12:40] LABS: Glucose Point of Care 167 mg/dl (65-105)
[2022-04-12 12:40] LABS: Glucose Point of Care 176 mg/dl (65-105)
[2022-04-12 12:40] LABS: Glucose Point of Care 195 mg/dl (65-105)
--- NOTE | 2022-04-12 12:52 | PM.PNNEP ---
Progress Note: A&P Assessment and Plan (1) MARINA (acute kidney injury): Code(s): N17.9 - Acute kidney failure, unspecified Status: Acute Assessment and Plan: dialysis dependent for the last month. hemodialysis today. renal biopsy showed substantial signs of diabetes in the glomeruli including nodules and thickened basement membranes. Interstitial showed ATN. It also showed about 20-30% fibrosis, not as much as I would have thought. This looks like acute on chronic renal insufficiency. The severity of the changes in the glomeruli is a bit disconnected with the mild changes in the interstitium. No signs of paraprotein or antibody mediated issues. continue dialysis 4 times a week. (2) Stage 3b chronic kidney disease: Code(s): N18.32 - Chronic kidney disease, stage 3b Status: Chronic Assessment and Plan: baseline creatinine runs ~ 1.6 - 2.2mg/dl likely due to CAD/CHF, vascular disease, diabetes, and age-related change (3) Acute on chronic respiratory failure: Code(s): J96.20 - Acute and chronic respiratory failure, unspecified whether with hypoxia or hypercapnia Status: Acute Assessment and Plan: multifactorial: volume overload asthma/COPD(?) RAINA/OHS anemia Echo Shows good LV EF, grade 2 diastolic dysfunction, mild or moderate MR We seem to be making headway in fluid burden. Blood pressure has dropped the last couple of dialysis treatments. Will hold off on dry ultrafiltration today and do regular dialysis 4 days a week (4) Hypertension: Code(s): I10 - Essential (primary) hypertension Status: Chronic Assessment and Plan: Systolic running 120-140 off dialysis. on verapamil and metoprolol Pulse 96 fluid removal should help. (5) Anemia: Code(s): D64.9 - Anemia, unspecified Status: Acute Assessment and Plan: likely due to MARINA, CKD and acute illness Epogen with HD Hemoglobin Up to 10.2 (6) Type 2 diabetes mellitus with hyperglycemia: Code(s): E11.65 - Type 2 diabetes mellitus with hyperglycemia Status: Chronic Assessment and Plan: accuchecks and SSI per hospitalist/estate attorney (7) Encephalopathy: Code(s): G93.40 - Encephalopathy, unspecified Status: Acute Assessment and Plan: The patient is off sedatives. CT brain nothing acute. Ammonia level okay. Blood gases look okay Other electrolytes look okay. sodium level is somewhat low. He is not making much urine. Most likely dilutional. Possibly multifactorial. Her white count is high and she is running low-grade fevers. She is on antibiotics. Possibly still some affect from the sedatives? BUN and sodium are better. (8) Hyponatremia: Code(s): E87.1 - Hypo-osmolality and hyponatremia Status: Acute Assessment and Plan: most likely dilutional because the patient is not making much urine. Sugars still okay. Sodium up to 129 Subjective Date/time seen: 04/12/22 12:52 Interval history: 04/03 Patient became more short of breath last night and was intubated. Currently off her sedative for an hour or so and slowly waking up. She looks comfortable on the ventilator. She is going to get dialysis soon 04/04 The patient is on the ventilator. She is on propofol. She has just been hooked up to dialysis. She is on dry ultrafiltration and tolerating this well. She was seen at 7:00 a.m. The patient is going to get a kidney biopsy today. I talked with Gwen her daughter at length about the risks benefits alternatives and process of the biopsy and she agrees to proceed. 04/05 Patient is on the ventilator and sedated. She looks comfortable. To get dialysis later today. 04/06 pt is sedated on the vent looks comfortable on no pressors. she received DUF today and 4L removed. BP is doing okay 04/07 Gregoria is comfortable on the ventilator.
[2022-04-12] MEDS: LORazepam INJ (*CRX) 2 MG/ML VIAL IV PUSH (15:15)
--- NOTE | 2022-04-12 17:21 | PC.NURSE ---
Patient transported to [facility] via EMS per ambulance for MRI services with nurse assist. 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 Nurse present with patient for transfer.
[2022-04-12 18:25] LABS: Glucose Point of Care 205 mg/dl (65-105)
[2022-04-12 18:25] LABS: Glucose Point of Care 152 mg/dl (65-105)
[2022-04-12 18:25] LABS: Glucose Point of Care 263 mg/dl (65-105)
[2022-04-12 18:25] LABS: Glucose Point of Care 200 mg/dl (65-105)
[2022-04-12 18:25] LABS: Glucose Point of Care 274 mg/dl (65-105)
[2022-04-12 18:54] LABS: Glucose Point of Care 260 mg/dl (65-105)
[2022-04-12 19:54] LABS: Glucose Point of Care 264 mg/dl (65-105)
--- NOTE | 2022-04-12 20:23 | PC.NURSE ---
Patient transported to [facility] via EMS per ambulance for MRI services with nurse assist. Patient car pick up driver at 1312 by EMS and time of arrival back to [facility] 1659. Nurse present with patient for transfer.
[2022-04-12] MEDS: INSULIN HUMAN REGULAR (*BKC) 100 UNITS in SODIUM CHLORIDE 0.9% IV 99 ML 8 UNITS IV CONT (20:30)
--- NOTE | 2022-04-12 20:38 | PC.NURSE ---
This nurse off unit with patient from 1312 PM until 1659 PM 04/12/2022. Patient transfer to [facility] for MRI scan. This nurse to transport with patient.
[2022-04-12 20:48] LABS: Vancomycin Random 20.3 ug/mL (10-20)
[2022-04-12 20:54] LABS: Glucose Point of Care 227 mg/dl (65-105)
[2022-04-12 22:01] LABS: Glucose Point of Care 207 mg/dl (65-105)
[2022-04-12 22:55] LABS: Glucose Point of Care 187 mg/dl (65-105)
[2022-04-13] VITALS (43 sets, daily range): BP systolic 99–136; BP diastolic 43–69; PULSE 80–106; RESP 18–28; TEMP 37–38.2; O2SAT 97–100
[2022-04-13 00:31] LABS: Glucose Point of Care 146 mg/dl (65-105)
[2022-04-13] MEDS: IPRATROPIUM BR 0.02% INH SOLN 0.5 MG/2.5 ML VIAL INHALATION ×4 (02:04→21:06)
[2022-04-13 02:36] LABS: Glucose Point of Care 144 mg/dl (65-105)
[2022-04-13 03:54] LABS: Glucose Point of Care 156 mg/dl (65-105)
[2022-04-13 04:37] LABS: Hematocrit 33.4 % (37.0-47.0); Mean Corpuscular HGB Conc 29.9 g/dl (32-36); Mean Corpuscular Hemoglobin 23.6 pg (26-34); Platelet Count Result 463 k/mm3 (150-375); Red Blood Count 4.23 M/mm3 (4.2-5.4); Red Cell Distribution Width 18.5 % (11.5-14.5); White Blood Count 28.6 K/mm3 (4.5-10.0)
[2022-04-13 04:47] LABS: Alveolar/Arterial O2 Gradient 77.6 mmHg; Base Excess ABG 2.5 mEq/l (+/-2.0); Carboxyhemoglobin 1.1 % THb (0-2.0); Device VENTILATOR; Fractional Inspired Oxygen 30 %; HCO3 ABG 27.9 mEq/l (22.0-26.0); Methemoglobin ABG 0.2 %THb (0-1.5); Modified Allen's Test Pass; Oxygen Content ABG 19.2 %vol (16.0-22.0); Oxygen Saturation ABG 96.1 % (95.0-100.0); Oxyhemoglobin 94.4 % THb (90.0-100.0); PCO2 ABG 45.6 mmHg (35.0-45.0); PO2 ABG 82.7 mmHg (80.0-100.0); PO2 FiO2 Ratio Arterial Blood 2.76 %; Reduced Hemoglobin 4.3 %THb (0-5.0); Site Drawn LEFT RADIAL; Total Hemoglobin 14.4 g/dL (12.0-18.0); pH ABG 7.404 (7.350-7.450)
[2022-04-13 04:48] LABS: Arterial Blood Gas Vent Mode CMV
[2022-04-13 04:50] LABS: Arterial Blood Gas PEEP 8 cmH2O
[2022-04-13 04:51] LABS: Arterial Blood Gas Tidal Volume 380 ml; Arterial Blood Gas Ventilator rate 16 /MIN
[2022-04-13 04:53] LABS: INR 1.3; Prothrombin Time 15.7 Seconds (11.1-14.7)
[2022-04-13 04:55] LABS: Anisocytosis 2+ (NORMAL); Band Neutrophils Percent 4 % (0-6); Eosinophils Absolute Manual 0.28 K/mm3 (0.02-0.5); Eosinophils Percent Manual 1 % (0-4); Large Platelets Present; Lymphocytes Absolute Manual 3.14 K/mm3 (1.1-4.5); Metamyelocytes Percent 2 %; Monocytes Absolute Manual 2.28 K/mm3 (0.1-0.90); Monocytes Percent Manual 8 % (3-9); Neutrophils Percent Manual 74 % (46-73); Partial Thromboplastin Time 81.3 SECONDS (22.3-36.8); Total Cells Counted 100
[2022-04-13 04:56] LABS: Macrocytosis 1+ (NORMAL); Microcytosis 2+ (NORMAL); Poikilocytosis 1+ (NORMAL)
[2022-04-13 04:57] LABS: Atypical Lymphocytes Present; Hypochromasia 1+ (NORMAL); Schistocytes None Seen (NORMAL); Smudge Cells FEW; Spherocytes 1+ (NORMAL)
[2022-04-13 04:59] LABS: Alanine Aminotransferase 53 U/L (6-35); Albumin Level 3.7 g/dL (3.5-5.1); Alkaline Phosphatase 154 U/L (38-126); Anion Gap 15 mmol/L (8-16); Aspartate Amino Transferase 55 U/L (14-36); Bilirubin,Total 0.5 mg/dL (0.2-1.3); Blood Urea Nitrogen 102 mg/dL (7-17); Calcium 9.5 mg/dL (8.4-10.2); Carbon Dioxide 26 mmol/L (22-30); Chloride 87 mmol/L (98-107); Estimated CRCL calculation 12 ml/min; Estimated Glomerular Filt Rate 8; Glucose 150 mg/dL (65-110); Magnesium 2.4 mg/dL (1.6-2.3); Phosphorus 3.4 mg/dL (2.5-4.5); Potassium 3.7 mmol/L (3.4-5.0); Sodium 128 mmol/L (137-145)
[2022-04-13 06:29] LABS: Glucose Point of Care 168 mg/dl (65-105)
[2022-04-13] MEDS: LEVOTHYROXINE SODIUM 100 MCG TABLET PO (06:47)
[2022-04-13] MEDS: LEVOTHYROXINE SODIUM 75 MCG TABLET PO (06:47)
[2022-04-13] MEDS: HEPARIN SOD/D5W 100 UNITS/ML 25,000 UNITS/250 ML BAG 19 UNITS IV CONT ×2 (07:12→20:13)
[2022-04-13 07:28] LABS: Glucose Point of Care 208 mg/dl (65-105)
[2022-04-13 08:09] LABS: Glucose Point of Care 195 mg/dl (65-105)
[2022-04-13] MEDS: CYANOCOBALAMIN 1,000 MCG TABLET 2000 MCG PO (08:33)
[2022-04-13] MEDS: MONTELUKAST SODIUM 10 MG TABLET PO (08:33)
[2022-04-13] MEDS: INSULIN GLARGINE (*BKC) 100 UNITS/ML 50 UNITS SUB-Q (08:33)
[2022-04-13] MEDS: FERROUS SULFATE 324 MG TABLET PO ×2 (08:33→16:16)
[2022-04-13] MEDS: MINERAL OIL/WHITE PETROLATUM OINTMENT 1 APPLIC EACH EYE ×2 (08:38→20:11)
[2022-04-13 09:00] LABS: Glucose Point of Care 191 mg/dl (65-105)
--- NOTE | 2022-04-13 09:55 | WPDINTPN ---
Progress Note: A&P Assessment and Plan (1) Leukocytosis: Code(s): D72.829 - Elevated white blood cell count, unspecified Status: Acute Assessment and Plan: Increasing WBC count with low-grade fevers, -Street catheter is out, could be related to dialysis line, -patient currently on cefepime and vancomycin (04/10) and levofloxacin (04/11) -04/11/2022 bilateral lower extremity venous Dopplers: Negative for DVT -04/11/2022 bilateral upper extremity venous Dopplers:Patent bilateral upper extremity veins. No evidence of deep venous thrombosis. 04/11/2022: Right upper quadrant ultrasound: Normal limited abdominal ultrasound 04/11/2022 , UA suggests a UTI, patient was pancultured, Street catheter removed 04/12/2022 CT scan of the chest abdomen and pelvis: Improving bilateral airspace consolidation which may represent resolving pneumonia and/or atelectasis.: Improving pleural effusions.: Improving small pericardial effusion.: There is mild thickening of the rectum with subtle perirectal infiltration, suspicious for proctitis, new since prior examination. 04/13 urine cultures growing Sagrario glabrata - will start fluconazole (2) Encephalopathy: Code(s): G93.40 - Encephalopathy, unspecified Status: Acute Assessment and Plan: Patient was unresponsive on 04/02 and had to be intubated Likely toxic metabolic encephalopathy Her blood glucose and ABG abnormal but would not explain her mental status CT head done and showed IMPRESSION: 1. 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 2. Mild nonspecific cerebral white matter disease, which likely represents chronic small vessel ischemic disease. Patient on so on some medication that would cause sedation including Neurontin tramadol and Xanax which have been discontinued -off all sedation since 04/08/2022 -04/09/2022 CT brain with no acute intracranial abnormalities, chronic bilateral lacunar infarctions, chronic age-related findings -ammonia level normal on 04/09 -patient neurology evaluation recommendation -04/10/2022 EEG did not show any, consistent with metabolic encephalopathy - 04/12 -patient had MRI done at [facility]. Report is pending - 04/13 -repeat EEG was done and report is pending -continue to hold sedation. Hemodialysis today (3) Acute on chronic respiratory failure: Code(s): J96.20 - Acute and chronic respiratory failure, unspecified whether with hypoxia or hypercapnia Status: Acute Assessment and Plan: Multifactorial acute on chronic respiratory failure secondary to congestive heart failure, restrictive lung disease from obesity hypoventilation, history of asthma, volume overload from kidney disease, large pleural effusions 04/02 Patient was on BiPAP but was intubated due to poor mental status Vent settings and ABG reviewed 04/03: Chest CT shows There are airspace opacities bilaterally with a dependent predominance, consistent with atelectasis. There are moderate-sized pleural effusions. Patient is getting hemodialysis today to remove fluid Patient received hemodialysis on 04/02, 06/03, 04/04, 04/05, 04/06, 04/07 -04/04/2022: Left-sided thoracenteses with 1000 mL of fluid removal which was done by IR -04/05/2022: Right thoracentesis with 950 ml of fluid removal by IR CXR this morning shows: ?Mild opacities in the bilateral mid and lower lung zones likely combination of mild pulmonary edema and discoid atelectasis although differential includes pneumonia.. Decreased tiny bilateral pleural effusions Continue bronchodilators -off sedation since 04/08, 8:00 a.m -placed on PSV 12/12 -Day 12 of intubation and patient may need tracheostomy. (4) CHF (congestive heart failure): Code(s): I50.9 - Heart failure, unspecified Status: Acute Assessment and Plan: Hemodialysis for fluid removal -left thoracentesis done on 04/04 -right thoracentesis done on 04/05 (5) [id number] kidney injury:
[2022-04-13 10:05] LABS: Glucose Point of Care 170 mg/dl (65-105)
--- NOTE | 2022-04-13 10:28 | PCFNICU ---
ICU Rounding Note: Pt current nutrition is Nepro at 45 ml/hr. Last recorded weight is 108 kg. Bowel Motility:+BM reported 04/13 Labs Reviewed:Glu 150, BUN 102, Cr 5.0,GFR 8, Na 128, Hct 33.4,Hgb 10.0 Meds Noted:Ferrous Sulfate, Miralax, Coumadin,Lantus, NovoLog, Protonix, Synthroid, B12 Skin: WNL Additional Notes: Patient remains on mechanical vent and tube feedings of Nepro at 45 ml/hr and tolerating per nursing. Flush 30 ml q 4 hours. Protein Modular of Prosource BID providing an additional 160 kcals and 40 gms protein. Dialysis today. Agree with diet orders. Following daily in ICU rounds. Monitoring labs, tolerance, stool pattern, meds, skin, plan of care every Sunday and Sunday.
[2022-04-13 10:58] LABS: Glucose Point of Care 142 mg/dl (65-105)
[2022-04-13] MEDS: EPOETIN ALFA-EPBX 10,000 UNITS/ML VIAL 10000 UNITS IV PUSH (11:01)
[2022-04-13 12:36] LABS: Glucose Point of Care 164 mg/dl (65-105)
[2022-04-13] MEDS: PANTOPRAZOLE SODIUM IV 40 MG VIAL IV PUSH (13:09)
[2022-04-13] MEDS: FLUCONAZOLE 200 MG/NACL 100 ML 200 MG/100 ML BAG 100 MG IVPB (13:09)
[2022-04-13] MEDS: ERTAPENEM SODIUM 0.5 GM in SODIUM CHLORIDE 0.9% IV 50 ML IVPB (13:09)
[2022-04-13] MEDS: levoFLOXacin 500 MG/D5W 100 ML 500 MG/100 ML BAG 100 MG IVPB (13:09)
[2022-04-13 15:55] LABS: Glucose Point of Care 324 mg/dl (65-105)
[2022-04-13] MEDS: INSULIN ASPART (*BKC) 100 UNITS/ML SUB-Q (16:30)
--- NOTE | 2022-04-13 16:44 | PM.PNNEP ---
Progress Note: A&P Assessment and Plan (1) MARINA (acute kidney injury): Code(s): N17.9 - Acute kidney failure, unspecified Status: Acute Assessment and Plan: dialysis dependent for the last month. hemodialysis today. ATN per biopsy continue dialysis 4 times a week. (2) Stage 3b chronic kidney disease: Code(s): N18.32 - Chronic kidney disease, stage 3b Status: Chronic Assessment and Plan: baseline creatinine runs ~ 1.6 - 2.2mg/dl biopsy shows diabetic glomerulopathy (3) Acute on chronic respiratory failure: Code(s): J96.20 - Acute and chronic respiratory failure, unspecified whether with hypoxia or hypercapnia Status: Acute Assessment and Plan: multifactorial: volume overload asthma/COPD(?) RAINA/OHS anemia Echo Shows good LV EF, grade 2 diastolic dysfunction, mild or moderate MR fluid status looks pretty good. No drop in blood pressure today. Continue dialysis 4 days a week (4) Hypertension: Code(s): I10 - Essential (primary) hypertension Status: Chronic Assessment and Plan: Systolic running 120-140 off dialysis. on verapamil and metoprolol Pulse still in the 90s fluid removal should help. (5) Anemia: Code(s): D64.9 - Anemia, unspecified Status: Acute Assessment and Plan: likely due to MARINA, CKD and acute illness Epogen with HD Hemoglobin Up to 10.0 (6) Type 2 diabetes mellitus with hyperglycemia: Code(s): E11.65 - Type 2 diabetes mellitus with hyperglycemia Status: Chronic Assessment and Plan: accuchecks and SSI per hospitalist/sash repairer (7) Encephalopathy: Code(s): G93.40 - Encephalopathy, unspecified Status: Acute Assessment and Plan: The patient is off sedatives. CT brain nothing acute. Ammonia level okay. Blood gases look okay Other electrolytes look okay. sodium level is somewhat low. He is not making much urine. Most likely dilutional. MRI pending Possibly multifactorial. Her white count is high and she is running low-grade fevers. She is on antibiotics. Possibly still some affect from the sedatives? BUN and sodium are better. (8) Hyponatremia: Code(s): E87.1 - Hypo-osmolality and hyponatremia Status: Acute Assessment and Plan: most likely dilutional because the patient is not making much urine. Sugars still okay. Sodium 128 today Subjective Date/time seen: 04/13/22 10:00 patient is in bed on the ventilator. Not sedated. Not interactive. She is on dialysis. Going for 1.5L as we did on Sunday. So far blood pressure seems to be doing pretty well. She was seen at 9:50 a.m. Exam Narrative: WDWN on the ventilator unresponsive and in NAD skin no rash or subcu nodules head ncat lungs coarse bilaterally cor reg no rub abd BS+ nontender and soft ext no edema. she moves legs occasionally. Objective Data Vital Signs Vital Signs: Vital Signs - 24 hr 04/12/22 17:03 04/12/22 16:59 04/12/22 18:00 Temperature 99.3 F Pulse Rate 95 91 88 Respiratory Rate 23 H 25 H Blood Pressure 121/56 L 101/57 L Pulse Oximetry 98 100 100 Oxygen Delivery Mechanical Ventilation Fraction of Inspired Oxygen 30 04/12/22 18:00 04/12/22 20:32 04/12/22 20:32 Temperature Pulse Rate 89 92 92 Respiratory Rate 24 H Blood Pressure Pulse Oximetry 100 Oxygen Delivery Mechanical Ventilation Fraction of Inspired Oxygen 30 04/12/22 20:00 04/12/22 20:00 04/12/22 20:00 Temperature Pulse Rate 88 Respiratory Rate Blood Pressure Pulse Oximetry 100 Oxygen Delivery Mechanical Ventilation Fraction of Inspired Oxygen 30 30 04/12/22 20:00 04/12/22 22:00 04/13/22 00:00 Temperature 99.8 F H Pulse Rate 88 96 84 Respiratory Rate 25 H 23 H Blood Pressure 130/52 L 130/52 L Pulse Oximetry 100 100 100 Oxygen Delivery M
[2022-04-13 20:07] LABS: Glucose Point of Care 453 mg/dl (65-105)
[2022-04-13] MEDS: INSULIN GLARGINE (*BKC) 100 UNITS/ML 30 UNITS SUB-Q (21:40)
[2022-04-13] MEDS: INSULIN HUMAN REGULAR (*BKC) 100 UNITS in SODIUM CHLORIDE 0.9% IV 99 ML 7.1 UNITS IV CONT (21:42)
[2022-04-13 21:49] LABS: Glucose Point of Care 417 mg/dl (65-105)
[2022-04-13 22:59] LABS: Glucose Point of Care 419 mg/dl (65-105)
[2022-04-14] VITALS (25 sets, daily range): BP systolic 103–152; BP diastolic 43–80; PULSE 69–160; RESP 18–29; TEMP 36.7–37.4; O2SAT 99–100
[2022-04-14 00:10] LABS: Glucose Point of Care 389 mg/dl (65-105)
[2022-04-14 01:58] LABS: Glucose Point of Care 329 mg/dl (65-105)
[2022-04-14 01:58] LABS: Glucose Point of Care 257 mg/dl (65-105)
[2022-04-14 02:08] LABS: Toxigenic C. Diff NEGATIVE (NEGATIVE)
[2022-04-14] MEDS: IPRATROPIUM BR 0.02% INH SOLN 0.5 MG/2.5 ML VIAL INHALATION ×4 (03:01→19:41)
[2022-04-14 03:08] LABS: Glucose Point of Care 219 mg/dl (65-105)
[2022-04-14 04:11] LABS: Glucose Point of Care 190 mg/dl (65-105)
[2022-04-14 04:55] LABS: Hematocrit 33.9 % (37.0-47.0); Hemoglobin 9.6 g/dL (12.0-15.0); Mean Corpuscular HGB Conc 28.3 g/dl (32-36); Mean Corpuscular Hemoglobin 22.9 pg (26-34); Mean Corpuscular Volume 80.9 fl (80-100); Mean Platelet Volume 10.3 fl (7.4-10.4); Platelet Count Result 419 k/mm3 (150-375); Red Blood Count 4.19 M/mm3 (4.2-5.4); Red Cell Distribution Width 18.5 % (11.5-14.5); White Blood Count 25.3 K/mm3 (4.5-10.0)
[2022-04-14 05:05] LABS: INR 1.2; Prothrombin Time 14.9 Seconds (11.1-14.7)
[2022-04-14 05:07] LABS: Partial Thromboplastin Time 65.8 SECONDS (22.3-36.8)
[2022-04-14 05:34] LABS: Alanine Aminotransferase 46 U/L (6-35); Albumin Level 3.5 g/dL (3.5-5.1); Alkaline Phosphatase 164 U/L (38-126); Anion Gap 15 mmol/L (8-16); Aspartate Amino Transferase 44 U/L (14-36); Bilirubin,Total 0.5 mg/dL (0.2-1.3); Blood Urea Nitrogen 81 mg/dL (7-17); Calcium 9.3 mg/dL (8.4-10.2); Carbon Dioxide 24 mmol/L (22-30); Chloride 93 mmol/L (98-107); Estimated CRCL calculation 16 ml/min; Estimated Glomerular Filt Rate 12; Glucose 147 mg/dL (65-110); Magnesium 2.3 mg/dL (1.6-2.3); Phosphorus 2.9 mg/dL (2.5-4.5); Potassium 3.8 mmol/L (3.4-5.0); Sodium 132 mmol/L (137-145)
[2022-04-14] MEDS: INSULIN HUMAN REGULAR (*BKC) 100 UNITS in SODIUM CHLORIDE 0.9% IV 99 ML 6.6 UNITS IV CONT (05:41)
[2022-04-14] MEDS: LEVOTHYROXINE SODIUM 100 MCG TABLET PO (05:43)
[2022-04-14] MEDS: LEVOTHYROXINE SODIUM 75 MCG TABLET PO (05:43)
[2022-04-14 05:56] LABS: Alveolar/Arterial O2 Gradient 52.6 mmHg; Base Excess ABG 2.4 mEq/l (+/-2.0); Carboxyhemoglobin 0.6 % THb (0-2.0); Fractional Inspired Oxygen 30 %; HCO3 ABG 26.8 mEq/l (22.0-26.0); Methemoglobin ABG 0.2 %THb (0-1.5); Modified Allen's Test Pass; Oxygen Content ABG 14.4 %vol (16.0-22.0); Oxygen Saturation ABG 98.3 % (95.0-100.0); PCO2 ABG 40.7 mmHg (35.0-45.0); PO2 ABG 113.5 mmHg (80.0-100.0); PO2 FiO2 Ratio Arterial Blood 3.78 %; Reduced Hemoglobin 2.2 %THb (0-5.0); Site Drawn LEFT RADIAL; Total Hemoglobin 10.4 g/dL (12.0-18.0); pH ABG 7.436 (7.350-7.450)
[2022-04-14 05:57] LABS: Arterial Blood Gas PEEP 5 cmH2O; Arterial Blood Gas Tidal Volume 380 ml; Arterial Blood Gas Vent Mode CMV; Arterial Blood Gas Ventilator rate 16 /MIN; Device VENTILATOR
[2022-04-14] MEDS: HEPARIN SODIUM 5,000 UNITS/ML VIAL 3500 UNITS IV PUSH (06:06)
[2022-04-14 06:12] LABS: Band Neutrophils Percent 5 % (0-6); Eosinophils Absolute Manual 0.25 K/mm3 (0.02-0.5); Eosinophils Percent Manual 1 % (0-4); Hypochromasia 2+ (NORMAL); Lymphocytes Absolute Manual 0.75 K/mm3 (1.1-4.5); Metamyelocytes Percent 2 %; Monocytes Absolute Manual 1.51 K/mm3 (0.1-0.90); Monocytes Percent Manual 6 % (3-9); Neutrophils Absolute Manual 22.26 K/mm3 (1.7-7.2); Neutrophils Percent Manual 83 % (46-73); Total Cells Counted 100
[2022-04-14 06:13] LABS: Anisocytosis 3+ (NORMAL); Macrocytosis 1+ (NORMAL); Microcytosis 2+ (NORMAL); Poikilocytosis 1+ (NORMAL); Schistocytes None Seen (NORMAL)
[2022-04-14 06:57] LABS: Glucose Point of Care 110 mg/dl (65-105)
[2022-04-14 06:57] LABS: Glucose Point of Care 143 mg/dl (65-105)
[2022-04-14 07:29] LABS: Glucose Point of Care 115 mg/dl (65-105)
[2022-04-14] MEDS: FERROUS SULFATE 324 MG TABLET PO ×2 (08:07→16:21)
[2022-04-14] MEDS: MONTELUKAST SODIUM 10 MG TABLET PO (08:07)
[2022-04-14] MEDS: CYANOCOBALAMIN 1,000 MCG TABLET 2000 MCG PO (08:07)
[2022-04-14] MEDS: FLUCONAZOLE 200 MG/NACL 100 ML 200 MG/100 ML BAG 100 MG IVPB (08:08)
[2022-04-14] MEDS: PANTOPRAZOLE SODIUM IV 40 MG VIAL IV PUSH (08:16)
[2022-04-14] MEDS: INSULIN GLARGINE (*BKC) 100 UNITS/ML 50 UNITS SUB-Q ×2 (08:34→20:44)
[2022-04-14 08:40] LABS: Glucose Point of Care 143 mg/dl (65-105)
[2022-04-14] MEDS: HEPARIN SOD/D5W 100 UNITS/ML 25,000 UNITS/250 ML BAG 21 UNITS IV CONT ×2 (08:40→20:38)
[2022-04-14] MEDS: MINERAL OIL/WHITE PETROLATUM OINTMENT 1 APPLIC EACH EYE ×2 (08:41→20:45)
[2022-04-14 09:41] LABS: Glucose Point of Care 147 mg/dl (65-105)
[2022-04-14 10:31] LABS: Glucose Point of Care 151 mg/dl (65-105)
--- NOTE | 2022-04-14 11:32 | PCNFU ---
Nutrition Follow-Up Complete: Inadequate oral intake related to NPO, mechanical ventilation as evidenced by need for full tube feeding goal; Meet estimated protein energy needs Progressing towards goal. We will continue current goal. Pt current nutrition is Vital AF 1.2. Tube feeding goal: 65 ml/hr Last recorded weight is 106.8 kg. Bowel Motility:FMS Labs Reviewed:Glu 147,GFR 12, BUN 81, Cr 3.8,Na 132, HCt 33.9,Hgb 9.6 Meds Noted:Heparin,Ferrous Sulfate, Coumadin,Lantus, NovoLog, Protonix, Synthroid, B12 Skin: WNL Additional Notes: Patient remains on mechanical vent and tube feedings of Nepro. Tube feeding formula change to Vital AF 1.2 today. goal rate at 65 ml/hr will provide 1716 kcals/107 gms protein/1160 ml water. Tube feeding is meeting 100% kcal needs and 96% protein needs. Flush 30 ml q 4 hours. Protein Modulars of Presource have been discontinued. Agree with diet orders. Monitoring labs, tolerance, stool pattern, meds, skin, plan of care every Sunday and Sunday. Follow daily in ICU rounds
[2022-04-14 11:50] LABS: Glucose Point of Care 115 mg/dl (65-105)
--- NOTE | 2022-04-14 12:04 | WPDINTPN ---
Progress Note: A&P Assessment and Plan (1) Leukocytosis: Code(s): D72.829 - Elevated white blood cell count, unspecified Status: Acute Assessment and Plan: Increasing WBC count with low-grade fevers, -Street catheter removed, could be related to dialysis line, -patient currently on cefepime and vancomycin (04/10) and levofloxacin (04/11) -04/11/2022 bilateral lower extremity venous Dopplers: Negative for DVT -04/11/2022 bilateral upper extremity venous Dopplers:Patent bilateral upper extremity veins. No evidence of deep venous thrombosis. 04/11/2022: Right upper quadrant ultrasound: Normal limited abdominal ultrasound 04/11/2022 , UA suggests a UTI, patient was pancultured, Street catheter removed 04/12/2022 CT scan of the chest abdomen and pelvis: Improving bilateral airspace consolidation which may represent resolving pneumonia and/or atelectasis.: Improving pleural effusions.: Improving small pericardial effusion.: There is mild thickening of the rectum with subtle perirectal infiltration, suspicious for proctitis, new since prior examination. 04/13 urine cultures growing Sagrario glabrata -patient was started on fluconazole 04/14 -although WBC remains elevated she has become afebrile is overnight. Continue to monitor (2) Encephalopathy: Code(s): G93.40 - Encephalopathy, unspecified Status: Acute Assessment and Plan: Patient was unresponsive on 04/02 and had to be intubated Likely toxic metabolic encephalopathy Her blood glucose and ABG abnormal but would not explain her mental status CT head done and showed IMPRESSION: 1. 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 2. Mild nonspecific cerebral white matter disease, which likely represents chronic small vessel ischemic disease. Patient on so on some medication that would cause sedation including Neurontin tramadol and Xanax which have been discontinued -off all sedation since 04/08/2022 -04/09/2022 CT brain with no acute intracranial abnormalities, chronic bilateral lacunar infarctions, chronic age-related findings -ammonia level normal on 04/09 -patient neurology evaluation recommendation -04/10/2022 EEG did not show any, consistent with metabolic encephalopathy - 04/12 -patient had MRI done at [facility]. Report report shows chronic small-vessel disease - 04/13 -repeat EEG was done and report is pending -04/14 discussed with nephrology and Neurology, will continue to hold sedation. Hemodialysis again tomorrow (3) Acute on chronic respiratory failure: Code(s): J96.20 - Acute and chronic respiratory failure, unspecified whether with hypoxia or hypercapnia Status: Acute Assessment and Plan: Multifactorial acute on chronic respiratory failure secondary to congestive heart failure, restrictive lung disease from obesity hypoventilation, history of asthma, volume overload from kidney disease, large pleural effusions 04/02 Patient was on BiPAP but was intubated due to poor mental status Vent settings and ABG reviewed 04/03: Chest CT shows There are airspace opacities bilaterally with a dependent predominance, consistent with atelectasis. There are moderate-sized pleural effusions. Patient is getting hemodialysis today to remove fluid Patient received hemodialysis on 04/02, 06/03, 04/04, 04/05, 04/06, 04/07 -04/04/2022: Left-sided thoracenteses with 1000 mL of fluid removal which was done by IR -04/05/2022: Right thoracentesis with 950 ml of fluid removal by IR CXR this morning shows: ?Mild opacities in the bilateral mid and lower lung zones likely combination of mild pulmonary edema and discoid atelectasis although differential includes pneumonia.. Decreased tiny bilateral pleural effusions Continue bronchodilators -off sedation since 04/08, 8:00 a.m -patient tolerated PSV 12/12 yesterday and will try again today -not a candidate for extubation at this time due to poor mental status and encephalopathy -Day 13 of intubation a
[2022-04-14] MEDS: ERTAPENEM SODIUM 0.5 GM in SODIUM CHLORIDE 0.9% IV 50 ML IVPB (12:08)
--- NOTE | 2022-04-14 12:17 | WPDNEUROPN ---
Progress Note: A&P Assessment and Plan (1) Encephalopathy: Code(s): G93.40 - Encephalopathy, unspecified Status: Acute (2) Acute on chronic respiratory failure: Code(s): J96.20 - Acute and chronic respiratory failure, unspecified whether with hypoxia or hypercapnia Status: Acute (3) [id number] kidney injury: Code(s): N17.9 - Acute kidney failure, unspecified; N18.9 - Chronic kidney disease, unspecified Status: Acute (4) UTI (urinary tract infection): Code(s): N39.0 - Urinary tract infection, site not specified Status: Acute Plan Gregoria Rae is a 71 year old female with a history of COPD, CHF, CAD, HTN, atrial fibrillation, LE DVT, type 2 DM currently admitted for respiratory failure. She has remained encephalopathic since sedation was turned off. MRI brain negative for ischemic changes. Etiology is likely multifactorial - uremia, medication effect, underlying infection. Patient seems more awake today compared to prior examination. - Will continue to follow exam Subjective Date/time seen: 04/14/22 12:17 Interval history: Gregoria Rae is a 71 year old female with a history of COPD, CHF, CAD, HTN, atrial fibrillation, LE DVT, type 2 DM who presented initially on 03/31 due to respiratory distress. Patient was recently discharged from an admission for MARINA superimposed on CKD with fluid retention, resulting in respiratory failure. Patient presented again to [facility] the day after discharge due to worsening respiratory status. She was admitted and initially required BiPAP, but on 04/02 was notably unresponsive so she was intubated. CT head on that day was negative for acute process. Admission again has been complicated by fluid retention. She underwent kidney biopsy on 04/07 for which her oral anticoagulation was held, and she was on a heparin drip. Most recently on 04/08 she was taken off all sedation (propofol), but there were concerns that she was not having any improvement in her mental status -- not following commands or opening eyes. She was initially on several sedating medications including gabapentin, tramadol, and Xanax, which were all discontinued in hopes to improve mental status. Repeat CT head from 04/09 was negative for any acute changes. Labs were significant for leukocytosis and uremia. She is currently being treated for possible fungal UTI. Routine EEG showed generalized slowing and triphasic waves, consistent with a metabolic encephalopathy. She went to [facility] for MRI day before yesterday which did not show any evidence of ischemic changes, only chronic small vessel disease. BUN today is 81. Review of Systems Review of Systems: ROS unobtainable: Yes unobtainable due to endotracheal tube and unobtainable due to medical condition Exam Const: Other: Intubated, off sedation Eyes: Pupils: Equal, round and reactive pupils present Other: Eyes open with stimulation. Looked at me with prompting. Resp: Other: mechanically ventilated Cardio: Rate: regular rate Rhythm: regular rhythm GI: GI Palp: Yes Soft to palpation Auscultation: normal bowel sounds Skin: General skin exam: normal color Neuro: Other: Eyes open with stimulation, looked over at me with a lot of prompting, seems somewhat agitated with stimulation -- shakes legs back and forth, face appears symmetric, coughs on tube, did not have any spontaneous movement in the upper extremities and did not withdraw upper extremities to noxious stimuli, but did move legs side to side, but not antigravity. Did not follow any other commands. Extrem: General: edema Objective Data Vital Signs Vital Signs: Vital Signs - 24 hr 04/13/22 14:00 04/13/22 14:00 04/13/22 14:34 Temperature Pulse Rate 101 H 93 93 Respiratory Rate 23 H 18 Blood Pressure 111/69 Pulse Oximetry 100 Oxygen Delivery Fraction of Inspired Oxygen 04/13/22 14:37 04/13/22 16:00 04/13/22 16:30 Temperature 38.0 C
--- NOTE | 2022-04-14 12:24 | PM.PNNEP ---
Progress Note: A&P Assessment and Plan (1) MARINA (acute kidney injury): Code(s): N17.9 - Acute kidney failure, unspecified Status: Acute Assessment and Plan: dialysis dependent for the last month. hemodialysis done Sunday and yesterday. BUN 81 today. Volume status looks good. Discussed with Dr. Casillas and dr Hodge (2) Stage 3b chronic kidney disease: Code(s): N18.32 - Chronic kidney disease, stage 3b Status: Chronic Assessment and Plan: baseline creatinine runs ~ 1.6 - 2.2mg/dl biopsy shows diabetic glomerulopathy (3) Acute on chronic respiratory failure: Code(s): J96.20 - Acute and chronic respiratory failure, unspecified whether with hypoxia or hypercapnia Status: Acute Assessment and Plan: multifactorial: volume overload asthma/COPD(?) RAINA/OHS anemia Echo Shows good LV EF, grade 2 diastolic dysfunction, mild or moderate MR fluid status looks pretty good. (4) Hypertension: Code(s): I10 - Essential (primary) hypertension Status: Chronic Assessment and Plan: Systolic running 120-140 off dialysis. on verapamil and metoprolol Blood pressure under good control. (5) Anemia: Code(s): D64.9 - Anemia, unspecified Status: Acute Assessment and Plan: likely due to MARINA, CKD and acute illness Epogen with HD Hemoglobin up and down around 10. (6) Type 2 diabetes mellitus with hyperglycemia: Code(s): E11.65 - Type 2 diabetes mellitus with hyperglycemia Status: Chronic Assessment and Plan: accuchecks and SSI per hospitalist/application technician (7) Encephalopathy: Code(s): G93.40 - Encephalopathy, unspecified Status: Acute Assessment and Plan: The patient is off sedatives. CT brain nothing acute. Ammonia level okay. Blood gases look okay Other electrolytes look okay. sodium level is somewhat low. He is not making much urine. Most likely dilutional. MRI does not show any etiology for the encephalopathy. Possibly multifactorial. Infection verses metabolic issues. Patient may be a bit catabolic. (8) Hyponatremia: Code(s): E87.1 - Hypo-osmolality and hyponatremia Status: Acute Assessment and Plan: most likely dilutional because the patient is not making much urine. Sugars still okay. Sodium 132 today Subjective Date/time seen: 04/14/22 12:24 Interval history: 11/28 Patient became more short of breath last night and was intubated. Currently off her sedative for an hour or so and slowly waking up. She looks comfortable on the ventilator. She is going to get dialysis soon 04/04 The patient is on the ventilator. She is on propofol. She has just been hooked up to dialysis. She is on dry ultrafiltration and tolerating this well. She was seen at 7:00 a.m. The patient is going to get a kidney biopsy today. I talked with Gwen her daughter at length about the risks benefits alternatives and process of the biopsy and she agrees to proceed. 04/05 Patient is on the ventilator and sedated. She looks comfortable. To get dialysis later today. 04/06 pt is sedated on the vent looks comfortable on no pressors. she received DUF today and 4L removed. BP is doing okay 04/07 Gregoria is comfortable on the ventilator. She is on propofol. Her is in the room. We discussed the case. She is on dialysis currently and tolerating it well. The UF is set for 4L and the blood pressure is in the 120s without any pressors. She was seen at 10:00 a.m. 04/10 Patient is on the ventilator. She is off sedatives. She is not interactive. 04/11 Patient is still unresponsive. She is on the ventilator her blood pressure dropped a bit on dialysis yesterday. Ultrafiltration rate was reduced. Overnight blood pressure has been stable and she is not on any pressors. 04/12 patient is n
[2022-04-14 12:31] LABS: Glucose Point of Care 101 mg/dl (65-105)
[2022-04-14 12:36] LABS: Partial Thromboplastin Time 103.8 SECONDS (22.3-36.8)
[2022-04-14 14:16] LABS: Glucose Point of Care 124 mg/dl (65-105)
[2022-04-14 15:10] LABS: Glucose Point of Care 134 mg/dl (65-105)
--- NOTE | 2022-04-14 15:18 | ECG_ITS ---
Measurements Intervals Paulina Rate: 153 P: [place]: 0 QRS: 19 QRSD: 105 T: 0 QT: 284 QTc: 454 Interpretive Statements ATRIAL FIBRILLATION WITH RAPID VENTRICULAR RESPONSE NONSPECIFIC ST & T-WAVE ABNORMALITY ABNORMAL RHYTHM ECG WARNING: DATA QUALITY MAY AFFECT INTERPRETATION COMPARED TO ECG 03/31/2022 00:11:22 ATRIAL FIBRILLATION NOW PRESENT Electronically Signed On 04-14-2022 17:24:57 IDENTIFICATION TECHNICIAN by Uriel Gillette M.D.
[2022-04-14] MEDS: METOPROLOL TARTRATE INJ 5 MG/5 ML VIAL IV PUSH ×2 (15:23→15:41)
[2022-04-14] MEDS: dilTIAZem 100 MG/100 ML 100 MG/100 ML BAG IV CONT (15:41)
[2022-04-14 16:10] LABS: Glucose Point of Care 134 mg/dl (65-105)
[2022-04-14 16:58] LABS: Glucose Point of Care 111 mg/dl (65-105)
[2022-04-14 18:36] LABS: Glucose Point of Care 121 mg/dl (65-105)
[2022-04-14 18:44] LABS: Partial Thromboplastin Time 96.8 SECONDS (22.3-36.8)
[2022-04-14 19:32] LABS: Glucose Point of Care 112 mg/dl (65-105)
[2022-04-14 21:03] LABS: Glucose Point of Care 124 mg/dl (65-105)
[2022-04-14 21:33] LABS: Glucose Point of Care 135 mg/dl (65-105)
[2022-04-14 22:57] LABS: Glucose Point of Care 112 mg/dl (65-105)
[2022-04-14 23:43] LABS: Glucose Point of Care 130 mg/dl (65-105)
[2022-04-15] VITALS (50 sets, daily range): BP systolic 95–147; BP diastolic 48–127; PULSE 97–156; RESP 20–26; TEMP 36.6–37.4; O2SAT 95–100
[2022-04-15 00:51] LABS: Glucose Point of Care 109 mg/dl (65-105)
[2022-04-15] MEDS: IPRATROPIUM BR 0.02% INH SOLN 0.5 MG/2.5 ML VIAL INHALATION ×4 (01:18→20:43)
[2022-04-15] MEDS: INSULIN HUMAN REGULAR (*BKC) 100 UNITS in SODIUM CHLORIDE 0.9% IV 99 ML IV CONT (01:45)
[2022-04-15 01:49] LABS: Glucose Point of Care 118 mg/dl (65-105)
[2022-04-15] MEDS: dilTIAZem 100 MG/100 ML 100 MG/100 ML BAG 10 MG IV CONT (02:57)
[2022-04-15 03:06] LABS: Glucose Point of Care 126 mg/dl (65-105)
[2022-04-15 03:42] LABS: Glucose Point of Care 117 mg/dl (65-105)
[2022-04-15 04:38] LABS: Hematocrit 32.2 % (37.0-47.0); Hemoglobin 9.3 g/dL (12.0-15.0); Mean Corpuscular HGB Conc 28.9 g/dl (32-36); Mean Corpuscular Hemoglobin 23.1 pg (26-34); Mean Corpuscular Volume 79.9 fl (80-100); Platelet Count Result 445 k/mm3 (150-375); Red Blood Count 4.03 M/mm3 (4.2-5.4); Red Cell Distribution Width 18.6 % (11.5-14.5); White Blood Count 22.8 K/mm3 (4.5-10.0)
[2022-04-15 04:42] LABS: Alanine Aminotransferase 45 U/L (6-35); Albumin Level 3.4 g/dL (3.5-5.1); Alkaline Phosphatase 129 U/L (38-126); Anion Gap 15 mmol/L (8-16); Aspartate Amino Transferase 53 U/L (14-36); Bilirubin,Total 0.4 mg/dL (0.2-1.3); Blood Urea Nitrogen 104 mg/dL (7-17); Calcium 8.6 mg/dL (8.4-10.2); Carbon Dioxide 25 mmol/L (22-30); Chloride 89 mmol/L (98-107); Estimated CRCL calculation 13 ml/min; Estimated Glomerular Filt Rate 9; Glucose 230 mg/dL (65-110); Magnesium 2.2 mg/dL (1.6-2.3); Potassium 3.4 mmol/L (3.4-5.0); Sodium 129 mmol/L (137-145)
[2022-04-15 05:02] LABS: Glucose Point of Care 113 mg/dl (65-105)
[2022-04-15 05:09] LABS: Base Excess ABG 1.7 mEq/l (+/-2.0); Carboxyhemoglobin 0.6 % THb (0-2.0); Fractional Inspired Oxygen 30 %; HCO3 ABG 26.6 mEq/l (22.0-26.0); Methemoglobin ABG 0.2 %THb (0-1.5); Oxygen Content ABG 17.5 %vol (16.0-22.0); Oxygen Saturation ABG 96.5 % (95.0-100.0); Oxyhemoglobin 95.4 % THb (90.0-100.0); PCO2 ABG 42.9 mmHg (35.0-45.0); PO2 ABG 85.5 mmHg (80.0-100.0); PO2 FiO2 Ratio Arterial Blood 2.85 %; Reduced Hemoglobin 3.8 %THb (0-5.0)
[2022-04-15 05:14] LABS: Arterial Blood Gas Vent Mode CMV; Arterial Blood Gas Ventilator rate 16 /MIN; Device VENTILATOR; Modified Allen's Test Unable to perform; Site Drawn LEFT RADIAL
[2022-04-15 05:15] LABS: Arterial Blood Gas PEEP 8 cmH2O; Arterial Blood Gas Tidal Volume 380 ml
[2022-04-15 06:13] LABS: Partial Thromboplastin Time > 200.0 SECONDS (22.3-36.8)
[2022-04-15] MEDS: LEVOTHYROXINE SODIUM 100 MCG TABLET PO (07:05)
[2022-04-15] MEDS: LEVOTHYROXINE SODIUM 75 MCG TABLET PO (07:05)
[2022-04-15 07:17] LABS: Glucose Point of Care 125 mg/dl (65-105)
[2022-04-15 07:17] LABS: Glucose Point of Care 111 mg/dl (65-105)
[2022-04-15] MEDS: AMIODARONE 150 MG/D5W 100 ML 150 MG/100 ML BAG 600 MG IV CONT (08:18)
--- NOTE | 2022-04-15 09:08 | PM.CNCAR ---
Assessment and Plan Assessment and plan (1) Atrial fibrillation: Code(s): I48.91 - Unspecified atrial fibrillation Status: Chronic Plan this is a 71-year-old lady with hypertension and diastolic left ventricular dysfunction admitted to the hospital frequently recently because of volume overload related to end-stage renal disease. She is now euvolemic and is being dialyzed and is in the ICU. She is encephalopathic and remaining on ventilator support. The exact reason for this is not entirely clear to me. Last evening she developed atrial fibrillation which has been persistent since then. This morning she has been started on intravenous amiodarone infusion. She still is tachycardic with heart rates in the 120s but she is hemodynamically quite stable. At this time I would recommend observing this at least for another day it is certainly possible that the IV amiodarone will convert her to sinus rhythm. If it does not within the next 24-48 hours a DC cardioversion would be a simple thing to perform while she is intubated on ventilator support. Uriel Gillette MD [facility] History of Present Illness History of Present Illness Consult date/time: 04/15/22 09:08 Consult reason: atrial fibrillation Reason For Visit: Acute on Chronic Resp Failure,CHF,Chronice Renal F Narrative: This is a 71-year-old woman I am seeing this morning at the request of the hospitalist/ mental health program director for assistance with management of atrial fibrillation. The patient is known to me from previous hospital consultation and follows with my partner, Dr. Marino because of diastolic noncompliance of her left ventricle. The patient does not have any other cardiac history other than a brief episode of paroxysmal atrial fib which he was in the hospital here in the last month or 2. The patient has been in the hospital a lot for the last couple of months primarily because of volume overload related to worsening chronic kidney disease. I saw her on a previous hospitalization but primarily because of volume overload which was clearly due to worsening /developing end-stage renal failure and she has been on hemodialysis now for about the last month. She was discharged last month but returned to the hospital within 48 hours with fluid overload and has been on dialysis since then. She has been intubated in the ICU for the last month and has encephalopathic state which is felt to be multifactorial in nature. Last evening she would converted from sinus rhythm to atrial fibrillation. She was given some intravenous diltiazem and starting this morning some intravenous amiodarone with a bolus and infusion. she is intubated off of all sedation in the ICU. since going into atrial fibrillation last evening she has not had any hemodynamic embarrassment her blood pressure is normal and has been normal through the night and this morning. She is currently undergoing hemodialysis as I come in to see her which she is also tolerating well hemodynamically. The patient is known to have good, hyperdynamic appearing left ventricular systolic function and several previous echocardiograms. As I mentioned in my previous notes she is also known not to have coronary artery disease by virtue of several previous normal coronary angiograms. 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
[2022-04-15] MEDS: AMIODARONE 360 MG/D5W 200 ML 360 MG/200 ML BAG 33.33 MG IV CONT (09:10)
[2022-04-15] MEDS: MINERAL OIL/WHITE PETROLATUM OINTMENT 1 APPLIC EACH EYE ×2 (09:12→21:10)
[2022-04-15] MEDS: PANTOPRAZOLE SODIUM IV 40 MG VIAL IV PUSH (09:12)
[2022-04-15] MEDS: MONTELUKAST SODIUM 10 MG TABLET PO (09:12)
[2022-04-15] MEDS: FERROUS SULFATE 324 MG TABLET PO ×2 (09:12→16:55)
[2022-04-15] MEDS: CYANOCOBALAMIN 1,000 MCG TABLET 2000 MCG PO (09:12)
[2022-04-15] MEDS: INSULIN GLARGINE (*BKC) 100 UNITS/ML 50 UNITS SUB-Q (09:26)
[2022-04-15 10:10] LABS: Glucose Point of Care 121 mg/dl (65-105)
[2022-04-15 10:10] LABS: Glucose Point of Care 103 mg/dl (65-105)
[2022-04-15 10:10] LABS: Glucose Point of Care 108 mg/dl (65-105)
[2022-04-15] MEDS: HEPARIN SOD/D5W 100 UNITS/ML 25,000 UNITS/250 ML BAG 19 UNITS IV CONT (11:16)
--- NOTE | 2022-04-15 11:38 | WPDINTPN ---
Progress Note: A&P Assessment and Plan (1) Leukocytosis: Code(s): D72.829 - Elevated white blood cell count, unspecified Status: Acute Assessment and Plan: Increasing WBC count with low-grade fevers, -04/11/2022 bilateral lower extremity venous Dopplers: Negative for DVT -04/11/2022 bilateral upper extremity venous Dopplers:Patent bilateral upper extremity veins. No evidence of deep venous thrombosis. 04/11/2022: Right upper quadrant ultrasound: Normal limited abdominal ultrasound 04/11/2022 , UA suggests a UTI, patient was pancultured, Street catheter removed 04/12/2022 CT scan of the chest abdomen and pelvis: Improving bilateral airspace consolidation which may represent resolving pneumonia and/or atelectasis.: Improving pleural effusions.: Improving small pericardial effusion.: There is mild thickening of the rectum with subtle perirectal infiltration, suspicious for proctitis, new since prior examination. 04/13 urine cultures growing Sagrario glabrata -patient was started on fluconazole 04/14 -although WBC remains elevated she has become afebrile is overnight. Continue to monitor 04/15-remains afebrile WBC slightly improved -patient currently on ertapenem which will be continued- -DC vancomycin (04/10) today after a 10 day course -DC levofloxacin (04/11) today after a 5 day course (2) Encephalopathy: Code(s): G93.40 - Encephalopathy, unspecified Status: Acute Assessment and Plan: Patient was unresponsive on 04/02 and had to be intubated Likely toxic metabolic encephalopathy Her blood glucose and ABG abnormal but would not explain her mental status CT head done and showed IMPRESSION: 1. 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 2. Mild nonspecific cerebral white matter disease, which likely represents chronic small vessel ischemic disease. Patient on so on some medication that would cause sedation including Neurontin tramadol and Xanax which have been discontinued -off all sedation since 04/08/2022 -04/09/2022 CT brain with no acute intracranial abnormalities, chronic bilateral lacunar infarctions, chronic age-related findings -ammonia level normal on 04/09 -patient neurology evaluation recommendation -04/10/2022 EEG did not show any, consistent with metabolic encephalopathy - 04/12 -patient had MRI done at [facility]. Report report shows chronic small-vessel disease - 12/8 -repeat EEG was done and report is pending -04/14 discussed with nephrology and Neurology, will continue to hold sedation. - 04/15 another hemodialysis session today. Continues to remain off of sedation (3) Acute on chronic respiratory failure: Code(s): J96.20 - Acute and chronic respiratory failure, unspecified whether with hypoxia or hypercapnia Status: Acute Assessment and Plan: Multifactorial acute on chronic respiratory failure secondary to congestive heart failure, restrictive lung disease from obesity hypoventilation, history of asthma, volume overload from kidney disease, large pleural effusions 04/02 Patient was on BiPAP but was intubated due to poor mental status Vent settings and ABG reviewed 04/03: Chest CT shows There are airspace opacities bilaterally with a dependent predominance, consistent with atelectasis. There are moderate-sized pleural effusions. Patient is getting hemodialysis today to remove fluid Patient received hemodialysis on 04/02, 06/03, 04/04, 04/05, 04/06, 04/07 -04/04/2022: Left-sided thoracenteses with 1000 mL of fluid removal which was done by IR -04/05/2022: Right thoracentesis with 950 ml of fluid removal by IR CXR this morning shows: ?Mild opacities in the bilateral mid and lower lung zones likely combination of mild pulmonary edema and discoid atelectasis although differential includes pneumonia.. Decreased tiny bilateral pleural effusions Continue bronchodilators -off sedation since 04/08, 8:00 a.m -patient tolerated PSV 12/12 yesterday and is on again today
--- NOTE | 2022-04-15 11:39 | PM.PNNEP ---
Progress Note: A&P Assessment and Plan (1) MARINA (acute kidney injury): Code(s): N17.9 - Acute kidney failure, unspecified Status: Acute Assessment and Plan: dialysis dependent for the last month. hemodialysis done Sunday and yesterday. BUN 104. Volume status looks good. Hemodialysis underway Discussed with Dr. Casillas (2) Stage 3b chronic kidney disease: Code(s): N18.32 - Chronic kidney disease, stage 3b Status: Chronic Assessment and Plan: baseline creatinine runs ~ 1.6 - 2.2mg/dl biopsy shows diabetic glomerulopathy (3) Acute on chronic respiratory failure: Code(s): J96.20 - Acute and chronic respiratory failure, unspecified whether with hypoxia or hypercapnia Status: Acute Assessment and Plan: multifactorial: volume overload asthma/COPD(?) RAINA/OHS anemia Echo Shows good LV EF, grade 2 diastolic dysfunction, mild or moderate MR fluid status looks pretty good. (4) Hypertension: Code(s): I10 - Essential (primary) hypertension Status: Chronic Assessment and Plan: Systolic running 120-140 off dialysis. on verapamil and metoprolol Blood pressure under good control. we are not removing any fluid (5) Anemia: Code(s): D64.9 - Anemia, unspecified Status: Acute Assessment and Plan: likely due to MARINA, CKD and acute illness Epogen with HD hemoglobin 9.3 today. (6) Type 2 diabetes mellitus with hyperglycemia: Code(s): E11.65 - Type 2 diabetes mellitus with hyperglycemia Status: Chronic Assessment and Plan: accuchecks and SSI per hospitalist/hse manager (7) Encephalopathy: Code(s): G93.40 - Encephalopathy, unspecified Status: Acute Assessment and Plan: The patient is off sedatives. CT brain nothing acute. Ammonia level okay. Blood gases look okay Other electrolytes look okay. sodium level is somewhat low. He is not making much urine. Most likely dilutional. MRI does not show any etiology for the encephalopathy. Possibly multifactorial. Infection verses metabolic issues. Patient may be a bit catabolic. (8) Hyponatremia: Code(s): E87.1 - Hypo-osmolality and hyponatremia Status: Acute Assessment and Plan: most likely dilutional because the patient is not making much urine. Sugars still okay. Sodium 129 Subjective Date/time seen: 04/15/22 11:39 Interval history: 04/03 Patient became more short of breath last night and was intubated. Currently off her sedative for an hour or so and slowly waking up. She looks comfortable on the ventilator. She is going to get dialysis soon 04/04 The patient is on the ventilator. She is on propofol. She has just been hooked up to dialysis. She is on dry ultrafiltration and tolerating this well. She was seen at 7:00 a.m. The patient is going to get a kidney biopsy today. I talked with Gwen her daughter at length about the risks benefits alternatives and process of the biopsy and she agrees to proceed. 04/05 Patient is on the ventilator and sedated. She looks comfortable. To get dialysis later today. 04/06 pt is sedated on the vent looks comfortable on no pressors. she received DUF today and 4L removed. BP is doing okay 04/07 Gregoria is comfortable on the ventilator. She is on propofol. Her is in the room. We discussed the case. She is on dialysis currently and tolerating it well. The UF is set for 4L and the blood pressure is in the 120s without any pressors. She was seen at 10:00 a.m. 04/10 Patient is on the ventilator. She is off sedatives. She is not interactive. 04/11 Patient is still unresponsive. She is on the ventilator her blood pressure dropped a bit on dialysis yesterday. Ultrafiltration rate was reduced. Overnight blood pressure has been stable and she is not on any pressors.
[2022-04-15] MEDS: levoFLOXacin 500 MG/D5W 100 ML 500 MG/100 ML BAG 100 MG IVPB (11:46)
[2022-04-15] MEDS: ERTAPENEM SODIUM 0.5 GM in SODIUM CHLORIDE 0.9% IV 50 ML IVPB (11:53)
[2022-04-15 12:54] LABS: Partial Thromboplastin Time 72.8 SECONDS (22.3-36.8)
[2022-04-15 13:47] LABS: Vancomycin Random 20.7 ug/mL (10-20)
[2022-04-15] MEDS: FLUCONAZOLE 200 MG/NACL 100 ML 200 MG/100 ML BAG 100 MG IVPB (14:12)
[2022-04-15] MEDS: AMIODARONE 360 MG/D5W 200 ML 360 MG/200 ML BAG 16.67 MG IV CONT (14:12)
[2022-04-15 15:01] LABS: Free T4 Free Thyroxine Reflex 1.85 ng/dL (0.78-2.19)
[2022-04-15 16:11] LABS: Total Triiodothyronine (T3) 0.67 NG/ML (0.97-1.69)
[2022-04-15 18:30] LABS: Glucose Point of Care 123 mg/dl (65-105)
[2022-04-15 18:30] LABS: Glucose Point of Care 138 mg/dl (65-105)
[2022-04-15 18:30] LABS: Glucose Point of Care 143 mg/dl (65-105)
[2022-04-15 18:30] LABS: Glucose Point of Care 124 mg/dl (65-105)
[2022-04-15 18:30] LABS: Glucose Point of Care 116 mg/dl (65-105)
[2022-04-15 18:30] LABS: Glucose Point of Care 136 mg/dl (65-105)
[2022-04-15 18:30] LABS: Glucose Point of Care 122 mg/dl (65-105)
[2022-04-15 18:30] LABS: Glucose Point of Care 118 mg/dl (65-105)
[2022-04-15 19:03] LABS: Partial Thromboplastin Time 113.9 SECONDS (22.3-36.8)
[2022-04-15 20:15] LABS: Glucose Point of Care 123 mg/dl (65-105)
[2022-04-15 20:15] LABS: Glucose Point of Care 134 mg/dl (65-105)
[2022-04-15] MEDS: INSULIN GLARGINE (*BKC) 100 UNITS/ML 60 UNITS SUB-Q (21:09)
[2022-04-15] MEDS: INSULIN HUMAN REGULAR (*BKC) 100 UNITS in SODIUM CHLORIDE 0.9% IV 99 ML 6.1 UNITS IV CONT (21:17)
[2022-04-15 21:24] LABS: Glucose Point of Care 136 mg/dl (65-105)
[2022-04-15 22:06] LABS: Glucose Point of Care 125 mg/dl (65-105)
[2022-04-15 23:15] LABS: Glucose Point of Care 94 mg/dl (65-105)
[2022-04-15] MEDS: HEPARIN SOD/D5W 100 UNITS/ML 25,000 UNITS/250 ML BAG 17 UNITS IV CONT (23:42)
[2022-04-16] VITALS (35 sets, daily range): BP systolic 82–151; BP diastolic 52–90; PULSE 91–160; RESP 14–34; TEMP 37.1–38.2; O2SAT 98–100
[2022-04-16 00:07] LABS: Glucose Point of Care 106 mg/dl (65-105)
[2022-04-16] MEDS: AMIODARONE 360 MG/D5W 200 ML 360 MG/200 ML BAG 16.67 MG IV CONT (01:24)
[2022-04-16 01:27] LABS: Glucose Point of Care 114 mg/dl (65-105)
[2022-04-16 02:14] LABS: Glucose Point of Care 122 mg/dl (65-105)
[2022-04-16 03:31] LABS: Glucose Point of Care 93 mg/dl (65-105)
[2022-04-16] MEDS: IPRATROPIUM BR 0.02% INH SOLN 0.5 MG/2.5 ML VIAL INHALATION ×3 (03:53→14:24)
[2022-04-16 04:25] LABS: Glucose Point of Care 85 mg/dl (65-105)
[2022-04-16 04:58] LABS: Alveolar/Arterial O2 Gradient 85.6 mmHg; Base Excess ABG 6.2 mEq/l (+/-2.0); Carboxyhemoglobin 0.3 % THb (0-2.0); Fractional Inspired Oxygen 30 %; Methemoglobin ABG 0.1 %THb (0-1.5); Oxygen Saturation ABG 96.8 % (95.0-100.0); Oxyhemoglobin 95.6 % THb (90.0-100.0); PO2 ABG 81.3 mmHg (80.0-100.0); PO2 FiO2 Ratio Arterial Blood 2.71 %; Total Hemoglobin 9.6 g/dL (12.0-18.0); pH ABG 7.493 (7.350-7.450)
[2022-04-16 04:59] LABS: Device VENTILATOR; Modified Allen's Test Unable to perform; Site Drawn RIGHT RADIAL
[2022-04-16 05:00] LABS: Arterial Blood Gas PEEP 8 cmH2O; Arterial Blood Gas Tidal Volume 380 ml; Arterial Blood Gas Vent Mode CMV; Arterial Blood Gas Ventilator rate 16 /MIN; Hematocrit 28.4 % (37.0-47.0); Hemoglobin 8.3 g/dL (12.0-15.0); Mean Corpuscular HGB Conc 29.2 g/dl (32-36); Mean Corpuscular Hemoglobin 22.6 pg (26-34); Mean Corpuscular Volume 77.4 fl (80-100); Mean Platelet Volume 9.8 fl (7.4-10.4); Platelet Count Result 366 k/mm3 (150-375); Red Blood Count 3.67 M/mm3 (4.2-5.4); Red Cell Distribution Width 18.2 % (11.5-14.5); White Blood Count 19.5 K/mm3 (4.5-10.0)
[2022-04-16 05:07] LABS: Alanine Aminotransferase 45 U/L (6-35); Albumin Level 3.2 g/dL (3.5-5.1); Alkaline Phosphatase 118 U/L (38-126); Anion Gap 4 mmol/L (8-16); Aspartate Amino Transferase 56 U/L (14-36); Bilirubin,Total 0.2 mg/dL (0.2-1.3); Blood Urea Nitrogen 67 mg/dL (7-17); Calcium 8.2 mg/dL (8.4-10.2); Carbon Dioxide 29 mmol/L (22-30); Chloride 92 mmol/L (98-107); Estimated CRCL calculation 16 ml/min; Estimated Glomerular Filt Rate 12; Glucose 83 mg/dL (65-110); Magnesium 2.1 mg/dL (1.6-2.3); Phosphorus 3.5 mg/dL (2.5-4.5); Potassium 3.7 mmol/L (3.4-5.0); Sodium 125 mmol/L (137-145)
[2022-04-16 05:17] LABS: Glucose Point of Care 73 mg/dl (65-105)
[2022-04-16 05:58] LABS: Partial Thromboplastin Time 74.5 SECONDS (22.3-36.8)
[2022-04-16] MEDS: LEVOTHYROXINE SODIUM 75 MCG TABLET PO (06:03)
[2022-04-16] MEDS: LEVOTHYROXINE SODIUM 100 MCG TABLET PO (06:03)
[2022-04-16 06:23] LABS: Glucose Point of Care 114 mg/dl (65-105)
[2022-04-16 07:05] LABS: Glucose Point of Care 137 mg/dl (65-105)
[2022-04-16] MEDS: CYANOCOBALAMIN 1,000 MCG TABLET 2000 MCG PO (08:19)
[2022-04-16] MEDS: FERROUS SULFATE 324 MG TABLET PO ×2 (08:20→16:30)
[2022-04-16] MEDS: PANTOPRAZOLE SODIUM IV 40 MG VIAL IV PUSH (08:20)
[2022-04-16] MEDS: MONTELUKAST SODIUM 10 MG TABLET PO (08:20)
[2022-04-16] MEDS: MINERAL OIL/WHITE PETROLATUM OINTMENT 1 APPLIC EACH EYE ×2 (08:21→20:08)
[2022-04-16] MEDS: INSULIN GLARGINE (*BKC) 100 UNITS/ML 60 UNITS SUB-Q ×2 (08:21→20:07)
[2022-04-16] MEDS: FLUCONAZOLE 200 MG/NACL 100 ML 200 MG/100 ML BAG 100 MG IVPB (08:21)
[2022-04-16 08:44] LABS: Partial Thromboplastin Time 136.6 SECONDS (22.3-36.8)
[2022-04-16] MEDS: AMIODARONE 150 MG/D5W 100 ML 150 MG/100 ML BAG 600 MG IV CONT ×2 (09:52→18:15)
--- NOTE | 2022-04-16 10:01 | PM.PNCARD ---
Progress Note: A&P Assessment and Plan (1) Atrial fibrillation: Code(s): I48.91 - Unspecified atrial fibrillation Status: Chronic Plan 71-year-old lady with prior history of paroxysmal AFib now become persistent despite intravenous amiodarone running for about 24 hours. She has chronic diastolic dysfunction and now 0 end-stage renal disease has been dependent on hemodialysis for about a month. She is essentially euvolemic. She is systemically anticoagulated. We should plan on DC cardioversion to try to try to restore sinus rhythm. I will try to arrange for that to be done tomorrow during the day. Uriel Gillette MD [facility] Subjective Date/time seen: date of service:04/16/22 10:01 Interval history: Follow-up visit in this 71-year-old lady with chronic diastolic dysfunction and progressive renal failure now with end-stage renal disease on dialysis. She has a history of paroxysmal atrial fib which has now become persistent for the last couple of days despite intravenous amiodarone. She remains in the ICU on ventilator support. Amiodarone has been running for about 24 hours with persistent atrial fib. Exam Const: Other: Sedated obese elderly lady on ventilator support HENMT: Mouth: Yes moist mucous membranes Eyes: Sclera: sclerae normal Neck: Neck: supple Resp: Other: breath sounds relatively clear bilaterally anterior auscultation Cardio: Rate: tachycardic Rhythm: abnormal rhythm irregularly irregular GI: GI Palp: Yes Soft to palpation Auscultation: normal bowel sounds Skin: General skin exam: normal color Neuro: Other: sedated on ventilator Objective Data Vital Signs Vital Signs: Vital Signs - 24 hr 04/15/22 10:22 04/15/22 11:37 04/15/22 11:37 Temperature 36.8 C Pulse Rate 122 H 117 H Respiratory Rate Blood Pressure 126/54 L 125/71 Pulse Oximetry Oxygen Delivery Fraction of Inspired Oxygen 04/15/22 10:43 04/15/22 11:20 04/15/22 12:00 Temperature Pulse Rate 110 H 115 H 119 H Respiratory Rate 26 H Blood Pressure 119/66 118/91 H Pulse Oximetry 100 100 Oxygen Delivery Mechanical Ventilation Fraction of Inspired Oxygen 30 04/15/22 12:00 04/15/22 12:00 04/15/22 13:00 Temperature Pulse Rate 122 H Respiratory Rate Blood Pressure 130/69 Pulse Oximetry 100 Oxygen Delivery Mechanical Ventilation Fraction of Inspired Oxygen 30 30 04/15/22 10:15 04/15/22 10:30 04/15/22 10:45 Temperature Pulse Rate 114 H 115 H 118 H Respiratory Rate Blood Pressure 126/54 L 119/66 122/101 H Pulse Oximetry Oxygen Delivery Fraction of Inspired Oxygen 04/15/22 11:00 04/15/22 11:15 04/15/22 11:30 Temperature Pulse Rate 126 H 125 H 118 H Respiratory Rate Blood Pressure 141/127 H 112/75 125/71 Pulse Oximetry Oxygen Delivery Fraction of Inspired Oxygen 04/15/22 14:00 04/15/22 14:12 04/15/22 14:39 Temperature Pulse Rate 117 H 125 H 124 H Respiratory Rate 26 H Blood Pressure 123/65 123/65 Pulse Oximetry 100 100 Oxygen Delivery Mechanical Ventilation Fraction of Inspired Oxygen 30 04/15/22 14:39 04/15/22 11:50 04/15/22 12:00 Temperature 37.1 C Pulse Rate 117 H 112 H 116 H Respiratory Rate 20 20 Blood Pressure 120/67 Pulse Oximetry Oxygen Delivery Fraction of Inspired Oxygen 04/15/22 14:00 04/15/22 16:01 04/15/22 16:54 Temperature Pulse Rate 107 H 125 H 107 H Respiratory Rate Blood Pressure 147/71 H 117/63 Pulse Oximetry Oxygen Delivery Fraction of Inspired Oxygen 04/15/22 16:00 04/15/22 16:00 04/15/22 16:00 Temperature 37.3 C Pulse Rate 129 H Respiratory Rate 25 H Blood Pressure 147/71 H Pulse Oximetry 100 100 Oxygen Delivery Mechanical Ventilation Fraction of Inspired Oxygen 30 30 04/15/22 17:53 04/15/22 16:00 04/15/22 18:00 Temperature Pulse Rate 128 H 132 H 119 H Respiratory Rate Blood Pressure
--- NOTE | 2022-04-16 10:55 | P.PNNP_ITS ---
Progress Note: A&P Assessment and Plan (1) MARINA (acute kidney injury): Code(s): N17.9 - Acute kidney failure, unspecified Status: Acute Assessment and Plan: * dialysis dependent for the last month. * hemodialysis done Sunday and yesterday. * BUN 67 today * Volume status looks good. * Discussed with Dr. Casillas and dr Hodge (2) Stage 3b chronic kidney disease: Code(s): N18.32 - Chronic kidney disease, stage 3b Status: Chronic Assessment and Plan: * baseline creatinine runs ~ 1.6 - 2.2mg/dl * biopsy shows diabetic glomerulopathy (3) Acute on chronic respiratory failure: Code(s): J96.20 - Acute and chronic respiratory failure, unspecified whether with hypoxia or hypercapnia Status: Acute Assessment and Plan: * multifactorial: * volume overload * asthma/COPD(?) * RAINA/OHS * anemia * Echo Shows good LV EF, grade 2 diastolic dysfunction, mild or moderate MR * Fluid status seems optimized. (4) Hypertension: Code(s): I10 - Essential (primary) hypertension Status: Chronic Assessment and Plan: * Systolic running 99-140 off dialysis. * on verapamil and metoprolol * Still in AFib. * On amiodarone. (5) Anemia: Code(s): D64.9 - Anemia, unspecified Status: Acute Assessment and Plan: * likely due to MARINA, CKD and acute illness * Epogen with HD * Hemoglobin dropped some from 9.3-8.3. * No schistocytes. * We cannot give her iron because of her infection. * B12 and folic acid are okay. * No BMs recorded yesterday. * to be complete we can check LDH and stool guaiacs. (6) Type 2 diabetes mellitus with hyperglycemia: Code(s): E11.65 - Type 2 diabetes mellitus with hyperglycemia Status: Chronic Assessment and Plan: * accuchecks and SSI per hospitalist/machine strap buckler (7) Encephalopathy: Code(s): G93.40 - Encephalopathy, unspecified Status: Acute Assessment and Plan: The patient is off sedatives. CT brain nothing acute. Ammonia level okay. Blood gases look okay Other electrolytes look okay. sodium level is somewhat low. He is not making much urine. Most likely dilutional. MRI does not show any etiology for the encephalopathy. Possibly multifactorial. Infection verses metabolic issues. Patient may be a bit catabolic. (8) Hyponatremia: Code(s): E87.1 - Hypo-osmolality and hyponatremia Status: Acute Assessment and Plan: most likely dilutional because the patient is not making much urine. Sugars still okay. Sodium 125 today This is likely dilutional because of extra IVs she is getting. Will give 3% saline today to bring the level up to the high 120s. Dialysis will correct it from there. Subjective Date/time seen: 04/16/22 10:55 Interval history: 04/03 Patient became more short of breath last night and was intubated. Currently off her sedative for an hour or so and slowly waking up. She looks comfortable on the ventilator. She is going to get dialysis soon 04/04 The patient is on the ventilator. She is on propofol. She has just been hooked up to dialysis. She is on dry ultrafiltration and tolerating this well. She was seen at 7:00 a.m. The patient is going to get a kidney biopsy today. I talked with Gwen her daughter at length about the risks benefits alternatives and process of the biopsy and she agrees to proceed. 04/05 Patient is
--- NOTE | 2022-04-16 10:55 | PM.PNNEP ---
Progress Note: A&P Assessment and Plan (1) MARINA (acute kidney injury): Code(s): N17.9 - Acute kidney failure, unspecified Status: Acute Assessment and Plan: dialysis dependent for the last month. hemodialysis done Sunday and yesterday. BUN 67 today Volume status looks good. Discussed with Dr. Casillas and dr Hodge (2) Stage 3b chronic kidney disease: Code(s): N18.32 - Chronic kidney disease, stage 3b Status: Chronic Assessment and Plan: baseline creatinine runs ~ 1.6 - 2.2mg/dl biopsy shows diabetic glomerulopathy (3) Acute on chronic respiratory failure: Code(s): J96.20 - Acute and chronic respiratory failure, unspecified whether with hypoxia or hypercapnia Status: Acute Assessment and Plan: multifactorial: volume overload asthma/COPD(?) RAINA/OHS anemia Echo Shows good LV EF, grade 2 diastolic dysfunction, mild or moderate MR Fluid status seems optimized. (4) Hypertension: Code(s): I10 - Essential (primary) hypertension Status: Chronic Assessment and Plan: Systolic running 99-140 off dialysis. on verapamil and metoprolol Still in AFib. On amiodarone. (5) Anemia: Code(s): D64.9 - Anemia, unspecified Status: Acute Assessment and Plan: likely due to MARINA, CKD and acute illness Epogen with HD Hemoglobin dropped some from 9.3-8.3. No schistocytes. We cannot give her iron because of her infection. B12 and folic acid are okay. No BMs recorded yesterday. to be complete we can check LDH and stool guaiacs. (6) Type 2 diabetes mellitus with hyperglycemia: Code(s): E11.65 - Type 2 diabetes mellitus with hyperglycemia Status: Chronic Assessment and Plan: accuchecks and SSI per hospitalist/insurance commissioner (7) Encephalopathy: Code(s): G93.40 - Encephalopathy, unspecified Status: Acute Assessment and Plan: The patient is off sedatives. CT brain nothing acute. Ammonia level okay. Blood gases look okay Other electrolytes look okay. sodium level is somewhat low. He is not making much urine. Most likely dilutional. MRI does not show any etiology for the encephalopathy. Possibly multifactorial. Infection verses metabolic issues. Patient may be a bit catabolic. (8) Hyponatremia: Code(s): E87.1 - Hypo-osmolality and hyponatremia Status: Acute Assessment and Plan: most likely dilutional because the patient is not making much urine. Sugars still okay. Sodium 125 today This is likely dilutional because of extra IVs she is getting. Will give 3% saline today to bring the level up to the high 120s. Dialysis will correct it from there. Subjective Date/time seen: 04/16/22 10:55 Interval history: 04/03 Patient became more short of breath last night and was intubated. Currently off her sedative for an hour or so and slowly waking up. She looks comfortable on the ventilator. She is going to get dialysis soon 04/04 The patient is on the ventilator. She is on propofol. She has just been hooked up to dialysis. She is on dry ultrafiltration and tolerating this well. She was seen at 7:00 a.m. The patient is going to get a kidney biopsy today. I talked with Gwen her daughter at length about the risks benefits alternatives and process of the biopsy and she agrees to proceed. 04/05 Patient is on the ventilator and sedated. She looks comfortable. To get dialysis later today. 04/06 pt is sedated on the vent looks comfortable on no pressors. she received DUF today and 4L removed. BP is doing okay 04/07 Gregoria is comfortable on the ventilator. She is on propofol. Her is in the room. We discussed the case. She is on dialysis currently and tolerating it well. The UF is set for 4L and the blood pressure is in the 120s without any pressors. She was seen a
[2022-04-16 11:35] LABS: Lactate Dehydrogenase 193 U/L (120-246)
[2022-04-16 11:40] LABS: Partial Thromboplastin Time 52.3 SECONDS (22.3-36.8)
[2022-04-16 12:35] LABS: Glucose Point of Care 147 mg/dl (65-105)
[2022-04-16 12:35] LABS: Glucose Point of Care 169 mg/dl (65-105)
[2022-04-16 12:35] LABS: Glucose Point of Care 148 mg/dl (65-105)
[2022-04-16] MEDS: ERTAPENEM SODIUM 0.5 GM in SODIUM CHLORIDE 0.9% IV 50 ML IVPB (12:36)
[2022-04-16 12:47] LABS: Glucose Point of Care 166 mg/dl (65-105)
--- NOTE | 2022-04-16 12:47 | WPDINTPN ---
Progress Note: A&P Assessment and Plan (1) Leukocytosis: Code(s): D72.829 - Elevated white blood cell count, unspecified Status: Acute Assessment and Plan: Increasing WBC count with low-grade fevers, -04/11/2022 bilateral lower extremity venous Dopplers: Negative for DVT -04/11/2022 bilateral upper extremity venous Dopplers:Patent bilateral upper extremity veins. No evidence of deep venous thrombosis. 04/11/2022: Right upper quadrant ultrasound: Normal limited abdominal ultrasound 04/11/2022 , UA suggests a UTI, patient was pancultured, Street catheter removed 04/12/2022 CT scan of the chest abdomen and pelvis: Improving bilateral airspace consolidation which may represent resolving pneumonia and/or atelectasis.: Improving pleural effusions.: Improving small pericardial effusion.: There is mild thickening of the rectum with subtle perirectal infiltration, suspicious for proctitis, new since prior examination. 04/13 urine cultures growing Sagrario glabrata -patient was started on fluconazole 04/14 -although WBC remains elevated she has become afebrile is overnight. Continue to monitor 04/16-remains afebrile WBC slightly improved -patient currently on ertapenem and fluconazole which will be continue -completed a 10 day course of vancomycin and a 5 day course of levofloxacin. Now both discontinued (2) Encephalopathy: Code(s): G93.40 - Encephalopathy, unspecified Status: Acute Assessment and Plan: Patient was unresponsive on 04/02 and had to be intubated Likely toxic metabolic encephalopathy Her blood glucose and ABG abnormal but would not explain her mental status CT head done and showed IMPRESSION: 1. 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 2. Mild nonspecific cerebral white matter disease, which likely represents chronic small vessel ischemic disease. Patient on so on some medication that would cause sedation including Neurontin tramadol and Xanax which have been discontinued -off all sedation since 04/08/2022 -04/09/2022 CT brain with no acute intracranial abnormalities, chronic bilateral lacunar infarctions, chronic age-related findings -ammonia level normal on 04/09 -patient neurology evaluation recommendation -04/10/2022 EEG did not show any, consistent with metabolic encephalopathy - 04/12 -patient had MRI done at [facility]. Report report shows chronic small-vessel disease - 04/13 -repeat EEG was done and report is pending -04/14 discussed with nephrology and Neurology, will continue to hold sedation. - 04/15 another hemodialysis session today. Continues to remain off of sedation (3) Acute on chronic respiratory failure: Code(s): J96.20 - Acute and chronic respiratory failure, unspecified whether with hypoxia or hypercapnia Status: Acute Assessment and Plan: Multifactorial acute on chronic respiratory failure secondary to congestive heart failure, restrictive lung disease from obesity hypoventilation, history of asthma, volume overload from kidney disease, large pleural effusions 04/02 Patient was on BiPAP but was intubated due to poor mental status Vent settings and ABG reviewed 04/03: Chest CT shows There are airspace opacities bilaterally with a dependent predominance, consistent with atelectasis. There are moderate-sized pleural effusions. Patient is getting hemodialysis today to remove fluid Patient received hemodialysis on 04/02, 06/03, 04/04, 04/05, 04/06, 04/07 -04/04/2022: Left-sided thoracenteses with 1000 mL of fluid removal which was done by IR -04/05/2022: Right thoracentesis with 950 ml of fluid removal by IR CXR this morning shows: ?Mild opacities in the bilateral mid and lower lung zones likely combination of mild pulmonary edema and discoid atelectasis although differential includes pneumonia.. Decreased tiny bilateral pleural effusions Continue bronchodilators -off sedation since 04/08, 8:00 a.m -patient tolerated PSV 12/12 yesterday and is on
[2022-04-16 16:14] LABS: Partial Thromboplastin Time 61.8 SECONDS (22.3-36.8)
[2022-04-16] MEDS: HEPARIN SOD/D5W 100 UNITS/ML 25,000 UNITS/250 ML BAG 17 UNITS IV CONT (16:24)
[2022-04-16] MEDS: HEPARIN SODIUM 5,000 UNITS/ML VIAL 3500 UNITS IV PUSH (16:24)
[2022-04-16 17:27] LABS: Glucose Point of Care 186 mg/dl (65-105)
[2022-04-16 17:45] LABS: IFOB Positive Control Positive; Immunochemical Fecal Occult Bl Negative (N)
[2022-04-16] MEDS: METOPROLOL TARTRATE 25 MG TABLET FEED TUBE (18:23)
[2022-04-16] MEDS: AMIODARONE 360 MG/D5W 200 ML 360 MG/200 ML BAG 33.33 MG IV CONT ×2 (18:31→22:42)
[2022-04-16 20:06] LABS: Glucose Point of Care 267 mg/dl (65-105)
[2022-04-16] MEDS: INSULIN ASPART (*BKC) 100 UNITS/ML SUB-Q (20:07)
[2022-04-16 22:45] LABS: Partial Thromboplastin Time 107.5 SECONDS (22.3-36.8)
[2022-04-17] VITALS (38 sets, daily range): BP systolic 103–148; BP diastolic 48–108; PULSE 76–119; RESP 10–28; TEMP 35.4–37.5; O2SAT 98–100
[2022-04-17 00:04] LABS: Glucose Point of Care 231 mg/dl (65-105)
[2022-04-17] MEDS: INSULIN ASPART (*BKC) 100 UNITS/ML SUB-Q ×2 (00:06→04:20)
[2022-04-17 04:17] LABS: Glucose Point of Care 239 mg/dl (65-105)
[2022-04-17] MEDS: AMIODARONE 360 MG/D5W 200 ML 360 MG/200 ML BAG 33.33 MG IV CONT (04:24)
[2022-04-17 05:19] LABS: Hematocrit 27.1 % (37.0-47.0); Mean Corpuscular HGB Conc 29.5 g/dl (32-36); Mean Corpuscular Hemoglobin 22.9 pg (26-34); Mean Corpuscular Volume 77.4 fl (80-100); Mean Platelet Volume 10.3 fl (7.4-10.4); Platelet Count Result 349 k/mm3 (150-375); Red Cell Distribution Width 18.6 % (11.5-14.5); White Blood Count 14.3 K/mm3 (4.5-10.0)
[2022-04-17] MEDS: LEVOTHYROXINE SODIUM 75 MCG TABLET PO (05:26)
[2022-04-17] MEDS: LEVOTHYROXINE SODIUM 100 MCG TABLET PO (05:27)
[2022-04-17 05:29] LABS: Alveolar/Arterial O2 Gradient 76.7 mmHg; Base Excess ABG -1.8 mEq/l (+/-2.0); Carboxyhemoglobin 0.3 % THb (0-2.0); Fractional Inspired Oxygen 30 %; HCO3 ABG 21.9 mEq/l (22.0-26.0); Methemoglobin ABG 0.2 %THb (0-1.5); Oxygen Content ABG 12.1 %vol (16.0-22.0); Oxygen Saturation ABG 97.7 % (95.0-100.0); Oxyhemoglobin 96.4 % THb (90.0-100.0); PCO2 ABG 33.1 mmHg (35.0-45.0); PO2 ABG 98.3 mmHg (80.0-100.0); PO2 FiO2 Ratio Arterial Blood 3.28 %; Reduced Hemoglobin 3.1 %THb (0-5.0); Total Hemoglobin 8.8 g/dL (12.0-18.0); pH ABG 7.439 (7.350-7.450)
[2022-04-17 05:30] LABS: Alanine Aminotransferase 35 U/L (6-35); Albumin Level 3.2 g/dL (3.5-5.1); Alkaline Phosphatase 110 U/L (38-126); Anion Gap 11 mmol/L (8-16); Aspartate Amino Transferase 44 U/L (14-36); Bilirubin,Total 0.3 mg/dL (0.2-1.3); Blood Urea Nitrogen 89 mg/dL (7-17); Calcium 8.2 mg/dL (8.4-10.2); Carbon Dioxide 26 mmol/L (22-30); Chloride 91 mmol/L (98-107); Estimated CRCL calculation 13 ml/min; Estimated Glomerular Filt Rate 9; Glucose 228 mg/dL (65-110); Potassium 4.1 mmol/L (3.4-5.0); Sodium 128 mmol/L (137-145)
[2022-04-17 05:30] LABS: Arterial Blood Gas Ventilator rate 16 /MIN; Device VENTILATOR; Modified Allen's Test Unable to perform; Site Drawn LEFT RADIAL
[2022-04-17 05:31] LABS: Partial Thromboplastin Time 91.6 SECONDS (22.3-36.8)
[2022-04-17 05:31] LABS: Arterial Blood Gas PEEP 8 cmH2O; Arterial Blood Gas Tidal Volume 380 ml; Arterial Blood Gas Vent Mode CMV
[2022-04-17] MEDS: PROPOFOL IV EMULSION 200 MG/20 ML VIAL (09:00)
--- NOTE | 2022-04-17 09:33 | ECG_ITS ---
Measurements Intervals [place] Rate: 80 P: 54 MT: 126 QRS: 24 QRSD: 106 T: 36 QT: 388 QTc: 448 Interpretive Statements SINUS RHYTHM LOW QRS VOLTAGE IN EXTREMITY LEADS [QRS DEFLECTION < 0.5 mV IN LIMB LEADS] ABNORMAL ECG COMPARED TO ECG 04/14/2022 15:19:03 SINUS RHYTHM HAS BEEN RESTORED Electronically Signed On 04-17-2022 15:07:47 BLOOD BANK CALENDAR CONTROL CLERK by Uriel Gillette M.D.
--- NOTE | 2022-04-17 09:39 | WPDCARDPROC ---
Cardiac Cath Procedure Note Date of procedure:: 04/17/22 Performing physician:: Uriel Gillette MD Indication:: persistent atrial fibrillation Brief clinical history:: this is a 71-year-old woman with history of diastolic noncompliance and hypertension. She also has end-stage renal disease and recently has become dependent on hemodialysis. During this hospitalization she has developed persistent atrial fibrillation despite amiodarone treatment. She is also systemically anticoagulated. An attempt at restoring sinus rhythm electrically has been recommended for today. Procedure Procedure performed:: DC cardioversion Sedation/Medication given:: propofol total dosage of 50 mg Estimated blood loss:: no blood loss Procedure note:: patient was in intensive care unit intubated on mechanical ventilator support and room 2. Defibrillator patches were placed in the AP position. A connected to the defibrillator synchronized and set at 200 joules output. She was then sedated with a bolus of propofol 50 mg which provided very good sedation for the procedure. She was DC cardioverted x1 shock restoring normal sinus rhythm. Findings:: As above Conclusion:: successful uncomplicated DC cardioversion using 200 joules x1 shock restoring normal sinus rhythm/terminating atrial fibrillation. Uriel Gillette MD [facility]
[2022-04-17] MEDS: HEPARIN SOD/D5W 100 UNITS/ML 25,000 UNITS/250 ML BAG 15 UNITS IV CONT (09:46)
[2022-04-17] MEDS: PANTOPRAZOLE SODIUM IV 40 MG VIAL IV PUSH (09:51)
[2022-04-17] MEDS: MONTELUKAST SODIUM 10 MG TABLET PO (09:52)
[2022-04-17] MEDS: FLUCONAZOLE 200 MG/NACL 100 ML 200 MG/100 ML BAG 100 MG IVPB (09:52)
[2022-04-17] MEDS: MINERAL OIL/WHITE PETROLATUM OINTMENT 1 APPLIC EACH EYE ×2 (09:52→20:08)
[2022-04-17] MEDS: FERROUS SULFATE 324 MG TABLET PO ×2 (09:53→16:27)
[2022-04-17] MEDS: CYANOCOBALAMIN 1,000 MCG TABLET 2000 MCG PO (09:53)
[2022-04-17 10:18] LABS: Glucose Point of Care 185 mg/dl (65-105)
[2022-04-17] MEDS: INSULIN GLARGINE (*BKC) 100 UNITS/ML 60 UNITS SUB-Q ×2 (10:30→20:07)
--- NOTE | 2022-04-17 10:56 | PCFNICU ---
ICU Rounding Note: Pt current nutrition is Vital AF 1.2 at 65 ml/hr. Last recorded weight is 115.8 kg. Bowel Motility:+Bm reported 04/14 Labs Reviewed:Glu 228, GFR 9, BUN 89, Cr 4.7, Alb 2.8,Na 128 Meds Noted:Heparin,Ferrous Sulfate, Coumadin,Lantus, NovoLog, Protonix, Synthroid, B12 Skin: WNL Additional Notes: Patient remains on mechanical vent and tube feedings of Vital AF 1.2 at 65 ml/hr and tolerating per nursing. Flush 30 ml q 4 hours. Consult for PEG and Trach. Dialysis and Cardioversion today. Following daily in ICU rounds. Monitoring labs, tolerance, stool pattern, meds, skin, plan of care every Sunday and Sunday.
[2022-04-17] MEDS: AMIODARONE 360 MG/D5W 200 ML 360 MG/200 ML BAG 16.67 MG IV CONT ×2 (11:13→22:45)
[2022-04-17] MEDS: ERTAPENEM SODIUM 0.5 GM in SODIUM CHLORIDE 0.9% IV 50 ML IVPB (11:14)
[2022-04-17 11:18] LABS: Partial Thromboplastin Time 78.6 SECONDS (22.3-36.8)
--- NOTE | 2022-04-17 11:28 | WPDINTPN ---
Progress Note: A&P Assessment and Plan (1) Leukocytosis: Code(s): D72.829 - Elevated white blood cell count, unspecified Status: Acute Assessment and Plan: Increasing WBC count with low-grade fevers, -04/11/2022 bilateral lower extremity venous Dopplers: Negative for DVT -04/11/2022 bilateral upper extremity venous Dopplers:Patent bilateral upper extremity veins. No evidence of deep venous thrombosis. 04/11/2022: Right upper quadrant ultrasound: Normal limited abdominal ultrasound 04/11/2022 , UA suggests a UTI, patient was pancultured, Street catheter removed 04/12/2022 CT scan of the chest abdomen and pelvis: Improving bilateral airspace consolidation which may represent resolving pneumonia and/or atelectasis.: Improving pleural effusions.: Improving small pericardial effusion.: There is mild thickening of the rectum with subtle perirectal infiltration, suspicious for proctitis, new since prior examination. 04/13 urine cultures growing Sagrario glabrata -patient was started on fluconazole 04/14 -although WBC remains elevated she has become afebrile is overnight. Continue to monitor 04/16-remains afebrile WBC slightly improved -patient currently on ertapenem and fluconazole which will be continue -completed a 10 day course of vancomycin and a 5 day course of levofloxacin. Now both discontinued (2) Encephalopathy: Code(s): G93.40 - Encephalopathy, unspecified Status: Acute Assessment and Plan: Patient was unresponsive on 04/02 and had to be intubated Likely toxic metabolic encephalopathy Her blood glucose and ABG abnormal but would not explain her mental status CT head done and showed IMPRESSION: 1. 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 2. Mild nonspecific cerebral white matter disease, which likely represents chronic small vessel ischemic disease. Patient on so on some medication that would cause sedation including Neurontin tramadol and Xanax which have been discontinued -off all sedation since 04/08/2022 -04/09/2022 CT brain with no acute intracranial abnormalities, chronic bilateral lacunar infarctions, chronic age-related findings -ammonia level normal on 04/09 -patient neurology evaluation recommendation -04/10/2022 EEG did not show any, consistent with metabolic encephalopathy - 04/12 -patient had MRI done at [facility]. Report report shows chronic small-vessel disease - 04/13 -repeat EEG was done and report is pending -04/14 discussed with nephrology and Neurology, will continue to hold sedation. Slowly improving. Continue to use is keep her off sedation continue dialysis (3) Acute on chronic respiratory failure: Code(s): J96.20 - Acute and chronic respiratory failure, unspecified whether with hypoxia or hypercapnia Status: Acute Assessment and Plan: Multifactorial acute on chronic respiratory failure secondary to congestive heart failure, restrictive lung disease from obesity hypoventilation, history of asthma, volume overload from kidney disease, large pleural effusions 04/02 Patient was on BiPAP but was intubated due to poor mental status Vent settings and ABG reviewed 04/03: Chest CT shows There are airspace opacities bilaterally with a dependent predominance, consistent with atelectasis. There are moderate-sized pleural effusions. Patient is getting hemodialysis today to remove fluid Patient received hemodialysis on 04/02, 06/03, 04/04, 04/05, 04/06, 04/07 -04/04/2022: Left-sided thoracenteses with 1000 mL of fluid removal which was done by IR -04/05/2022: Right thoracentesis with 950 ml of fluid removal by IR CXR this morning shows: ?Mild opacities in the bilateral mid and lower lung zones likely combination of mild pulmonary edema and discoid atelectasis although differential includes pneumonia.. Decreased tiny bilateral pleural effusions Continue bronchodilators -off sedation since 04/08, 8:00 a.m -patient tolerated PSV 12/12 yesterday and is on
[2022-04-17] MEDS: SODIUM CHLORIDE 0.9% IV 1,000 ML 999 ML IV CONT (13:04)
[2022-04-17] MEDS: EPOETIN ALFA-EPBX 10,000 UNITS/ML VIAL 10000 UNITS IV PUSH (13:04)
--- NOTE | 2022-04-17 13:13 | PM.PNNEP ---
Progress Note: A&P Assessment and Plan (1) MARINA (acute kidney injury): Code(s): N17.9 - Acute kidney failure, unspecified Status: Acute Assessment and Plan: dialysis dependent for the last month. HD today follow electrolytes, volume status, and clearance (2) Stage 3b chronic kidney disease: Code(s): N18.32 - Chronic kidney disease, stage 3b Status: Chronic Assessment and Plan: baseline creatinine runs ~ 1.6 - 2.2mg/dl renal biopsy shows evidence of diabetic glomerulopathy (3) Acute on chronic respiratory failure: Code(s): J96.20 - Acute and chronic respiratory failure, unspecified whether with hypoxia or hypercapnia Status: Acute Assessment and Plan: multifactorial: volume overload asthma/COPD(?) RAINA/OHS anemia Echo with good LV EF, grade 2 diastolic dysfunction, mild/moderate MR fluid status optimized with ultrafiltration with dialysis (4) Hyponatremia: Code(s): E87.1 - Hypo-osmolality and hyponatremia Status: Acute Assessment and Plan: most likely dilutional because the patient is not making much urine s/p 3% saline yesterday with improvement in sodium dialysis should help further correct (5) Hypertension: Code(s): I10 - Essential (primary) hypertension Status: Chronic Assessment and Plan: reasonable control at this time on verapamil and metoprolol s/p cardioversion earlier today for atrial fibrillation (6) Anemia: Code(s): D64.9 - Anemia, unspecified Status: Acute Assessment and Plan: likely due to MARINA, CKD and acute illness Epogen with HD follow trend of H/H (7) Encephalopathy: Code(s): G93.40 - Encephalopathy, unspecified Status: Acute Assessment and Plan: this seems to be persistant evaluation/testing to date noted: off sedatives CT brain with nothing acute ammonia level okay blood gases look okay other electrolytes look okay MRI negative as well continue supportive therapy (8) Type 2 diabetes mellitus with hyperglycemia: Code(s): E11.65 - Type 2 diabetes mellitus with hyperglycemia Status: Chronic Assessment and Plan: accuchecks and SSI per hospitalist/nuclear power plant engineer glycemic control Will continue to follow. Subjective Date/time seen: 04/17/22 13:13 Chart reviewed since last seen -- assuming care from Dr. Dumont; tolerated dialysis treatment at the time of my visit (seen on HD at 1:00PM); remains on ventilator support but mentation not at baseline; no events overnight or earlier this AM; results of family meeting noted. Exam Narrative: General: WD/WN female in NAD; intubated and on ventilator Heart: normal S1 and S2; no rub Lungs: coarse breath sounds throughout Abdomen: soft, nontender, nondistended, positive bowel sounds Extremities: no cyanosis or clubbing; no edema Skin: warm and dry Objective Data Vital Signs Vital Signs: Vital Signs Temp Pulse Resp BP Pulse Ox O2 Del Method FiO2 04/17/22 13:00 80 118/51 L 04/17/22 12:45 79 147/60 H 04/17/22 12:20 30 04/17/22 12:20 99.5 F 84 28 H 147/51 H 99 04/17/22 12:30 82 142/58 H 04/17/22 10:00 85 04/17/22 08:00 30 04/17/22 08:00 113 H 24 H 130/68 100 04/17/22 08:00 118 H 04/17/22 08:00 100 Mechanical Ventilation 30 04/17/22 11:40 81 100 Mechanical Ventilation 04/17/22 11:13 81 148/63 H 04/17/22 10:25 81 148/63 H 04/17/22 08:59 116 H 99 Mechanical Ventilation 30 04/17/22 06:00 105 H 24 H 138/70 100 04/17/22 06:00 105 H 04/17/22 04:00 103 H 20 100 Mechanical Ventilation 30 04/17/22 04:00 98.8 F 113 H 23 H 138/67 100 04/17/22 04:00 30 04/17/22 04:00 113 H 04/17/22 05:07 90 100 Mechanical Ventilation 30 04/17/22 02:00 119 H 25 H 125/76 100 1
--- NOTE | 2022-04-17 13:13 | P.PNNP_ITS ---
Progress Note: A&P Assessment and Plan (1) MARINA (acute kidney injury): Code(s): N17.9 - Acute kidney failure, unspecified Status: Acute Assessment and Plan: * dialysis dependent for the last month. * HD today * follow electrolytes, volume status, and clearance (2) Stage 3b chronic kidney disease: Code(s): N18.32 - Chronic kidney disease, stage 3b Status: Chronic Assessment and Plan: * baseline creatinine runs ~ 1.6 - 2.2mg/dl * renal biopsy shows evidence of diabetic glomerulopathy (3) Acute on chronic respiratory failure: Code(s): J96.20 - Acute and chronic respiratory failure, unspecified whether with hypoxia or hypercapnia Status: Acute Assessment and Plan: * multifactorial: * volume overload * asthma/COPD(?) * RAINA/OHS * anemia * Echo with good LV EF, grade 2 diastolic dysfunction, mild/moderate MR * fluid status optimized with ultrafiltration with dialysis (4) Hyponatremia: Code(s): E87.1 - Hypo-osmolality and hyponatremia Status: Acute Assessment and Plan: * most likely dilutional because the patient is not making much urine * s/p 3% saline yesterday with improvement in sodium * dialysis should help further correct (5) Hypertension: Code(s): I10 - Essential (primary) hypertension Status: Chronic Assessment and Plan: * reasonable control at this time * on verapamil and metoprolol * s/p cardioversion earlier today for atrial fibrillation (6) Anemia: Code(s): D64.9 - Anemia, unspecified Status: Acute Assessment and Plan: * likely due to MARINA, CKD and acute illness * Epogen with HD * follow trend of H/H (7) Encephalopathy: Code(s): G93.40 - Encephalopathy, unspecified Status: Acute Assessment and Plan: * this seems to be persistant * evaluation/testing to date noted: * off sedatives * CT brain with nothing acute * ammonia level okay * blood gases look okay * other electrolytes look okay * MRI negative as well * continue supportive therapy (8) Type 2 diabetes mellitus with hyperglycemia: Code(s): E11.65 - Type 2 diabetes mellitus with hyperglycemia Status: Chronic Assessment and Plan: * accuchecks and SSI per hospitalist/tank terminal gauger * glycemic control Will continue to follow. Subjective Date/time seen: 04/17/22 13:13 Chart reviewed since last seen -- assuming care from Dr. Dumont; tolerated dialysis treatment at the time of my visit (seen on HD at 1:00PM); remains on ventilator support but mentation not at baseline; no events overnight or earlier this AM; results of family meeting noted. Exam Narrative: General: WD/WN female in NAD; intubated and on ventilator Heart: normal S1 and S2; no rub Lungs: coarse breath sounds throughout Abdomen: soft, nontender, nondistended, positive bowel sounds Extremities: no cyanosis or clubbing; no edema Skin: warm and dry Objective Data Vital Signs Vital Signs: Vital Signs Temp Pulse Resp BP Pulse Ox O2 Del Method FiO2 04/17/22 13:00 80 118/51 L 04/17/22 12:45 79 147/60 H 04/17/22 12:20 30 04/17/22 12:20 99.5 F 84 28 H 147/51 H 99 04/17/22 12:30 82 142/58 H 04/17/22 10:00 85 04/17/22 08:00
[2022-04-17 15:25] LABS: Glucose Point of Care 151 mg/dl (65-105)
[2022-04-17 17:07] LABS: Glucose Point of Care 127 mg/dl (65-105)
--- NOTE | 2022-04-17 17:24 | WPDGICN ---
Assessment and Plan Assessment and plan (1) Altered mental status: Code(s): R41.82 - Altered mental status, unspecified Status: Acute Assessment and Plan: since admission she has had signs of encephalopathy and etiology is uncertain. At this time she is sedated and therefore cannot assess. (2) COPD (chronic obstructive pulmonary disease): Code(s): J44.9 - Chronic obstructive pulmonary disease, unspecified Status: Acute Assessment and Plan: She had been a smoker and also has had asthma much of her life. She was hospitalized in February with respiratory failure and again shortly after . She has been intubated now for about 2 weeks. (3) Acute on chronic respiratory failure: Code(s): J96.20 - Acute and chronic respiratory failure, unspecified whether with hypoxia or hypercapnia Status: Acute (4) Chronic anticoagulation: Code(s): Z79.01 - [facility] (current) use of anticoagulants Status: Acute Assessment and Plan: She had been on warfarin at home because of DVT. Now she is on heparin drip. (5) Leukocytosis: Code(s): D72.829 - Elevated white blood cell count, unspecified Status: Acute Assessment and Plan: She has suspicion of pneumonia. She is currently on antibiotics. Her white count actually has come down from 29,900 to about 14,000. Plan I discussed PEG placement with the . I explained that will replace her orogastric feeding tube. She also is going to have a tracheostomy. Explain the possible complications of PEG tube placement including bleeding, infection, or perforation of an organ, though these are relatively infrequent. GI Consult Note Consult date/time: 04/17/22 17:24 HPI: Gregoria Rae is a 71 year old female Who is known to have chronic lung disease who has been hospitalized and intubated for over 2 weeks now. Her states that she was hospitalized in February, home for several days and then came back just after because of severe shortness of breath. He states that she was clear mentally but the hospital notes here indicate that she has an encephalopathy of unknown cause. My understanding is that when sedatives were withdrawn in an effort to intubate her that there were signs of confusion. She has had a severe leukocytosis, as high as about 30,000 on April 12. Now it is down to about 14,000. She is on antibiotics for presumed pneumonia. Prior to admission she was not having any gastrointestinal issues such as vomiting or nausea, we dysphagia, weight loss, or abdominal pain. 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 Chronic diastolic (congestive) heart failure Chronic kidney disease, stage 3 unspecified Chronic kidney disease, stage III (moderate) COPD (chronic obstructive pulmonary disease) Coronary artery disease involving solomon heart without angina pectoris Depression DVT (deep venous thrombosis) ARACELY (generalized anxiety disorder) GERD without esophagitis History of stroke Hypertensive heart disease with heart failure and stage 3 chronic kidney disease Hyponatremia Hypothyroid Left knee DJD Long-term insulin use Peripheral polyneuropathy Pre-ulcerative calluses Sepsis Type 2 diabetes mellitus with hyperglycemia Family History Family History Father Hypertension Family history of coronary artery disease Sibling Hypertension Family history of coronary artery disease Mother Cerebrovascular accident Other Asthma Depression Family history of Alzheimer's disease Family history of arthritis Family history of cardiovascular disease Family history of lymphoma Family history of obesity Family histor
--- NOTE | 2022-04-17 18:12 | PC.NURSE ---
BP 96/45 with a MAP of 61 at 1755, BP 105/46 with a MAP 65. Dr. Casillas notified. New orders noted to hold metoprolol and to notify if BP continues to drop.
[2022-04-17 20:17] LABS: Glucose Point of Care 162 mg/dl (65-105)
[2022-04-18] VITALS (29 sets, daily range): BP systolic 111–148; BP diastolic 45–92; PULSE 60–113; RESP 12–30; TEMP 36.9–37.7; O2SAT 100
[2022-04-18 00:18] LABS: Glucose Point of Care 197 mg/dl (65-105)
[2022-04-18] MEDS: HEPARIN SOD/D5W 100 UNITS/ML 25,000 UNITS/250 ML BAG 15 UNITS IV CONT (00:44)
[2022-04-18 04:24] LABS: Hematocrit 25.3 % (37.0-47.0); Hemoglobin 7.4 g/dL (12.0-15.0); Mean Corpuscular HGB Conc 29.2 g/dl (32-36); Mean Corpuscular Hemoglobin 22.8 pg (26-34); Mean Corpuscular Volume 77.8 fl (80-100); Mean Platelet Volume 10.1 fl (7.4-10.4); Platelet Count Result 329 k/mm3 (150-375); Red Blood Count 3.25 M/mm3 (4.2-5.4); Red Cell Distribution Width 18.5 % (11.5-14.5); White Blood Count 12.6 K/mm3 (4.5-10.0)
[2022-04-18 04:39] LABS: Partial Thromboplastin Time 71.9 SECONDS (22.3-36.8)
[2022-04-18 04:49] LABS: Alanine Aminotransferase 32 U/L (6-35); Alkaline Phosphatase 107 U/L (38-126); Anion Gap 9 mmol/L (8-16); Aspartate Amino Transferase 37 U/L (14-36); Bilirubin,Total 0.2 mg/dL (0.2-1.3); Blood Urea Nitrogen 46 mg/dL (7-17); Calcium 8.1 mg/dL (8.4-10.2); Carbon Dioxide 29 mmol/L (22-30); Chloride 97 mmol/L (98-107); Estimated CRCL calculation 18 ml/min; Estimated Glomerular Filt Rate 13; Glucose 124 mg/dL (65-110); Magnesium 1.9 mg/dL (1.6-2.3); Sodium 135 mmol/L (137-145)
[2022-04-18 05:16] LABS: Alveolar/Arterial O2 Gradient 62.8 mmHg; Base Excess ABG 5.2 mEq/l (+/-2.0); Carboxyhemoglobin 0.3 % THb (0-2.0); Fractional Inspired Oxygen 30 %; HCO3 ABG 29.4 mEq/l (22.0-26.0); Methemoglobin ABG 0.4 %THb (0-1.5); Oxygen Content ABG 10.4 %vol (16.0-22.0); Oxyhemoglobin 96.3 % THb (90.0-100.0); PCO2 ABG 41.5 mmHg (35.0-45.0); PO2 ABG 102.3 mmHg (80.0-100.0); PO2 FiO2 Ratio Arterial Blood 3.41 %; pH ABG 7.468 (7.350-7.450)
[2022-04-18 05:17] LABS: Device VENTILATOR; Modified Allen's Test Pass; Site Drawn LEFT RADIAL
[2022-04-18 05:23] LABS: Arterial Blood Gas PEEP 8 cmH2O; Arterial Blood Gas Tidal Volume 380 ml; Arterial Blood Gas Vent Mode CMV; Arterial Blood Gas Ventilator rate 16 /MIN; Total Hemoglobin 7.5 g/dL (12.0-18.0)
[2022-04-18] MEDS: LEVOTHYROXINE SODIUM 75 MCG TABLET PO (06:25)
[2022-04-18] MEDS: LEVOTHYROXINE SODIUM 100 MCG TABLET PO (06:25)
[2022-04-18] MEDS: DEXTROSE 50% 25 GM/50 ML SYRINGE IV PUSH ×3 (09:15→15:00)
[2022-04-18] MEDS: MONTELUKAST SODIUM 10 MG TABLET PO (09:30)
[2022-04-18] MEDS: PANTOPRAZOLE SODIUM IV 40 MG VIAL IV PUSH (09:30)
[2022-04-18] MEDS: MINERAL OIL/WHITE PETROLATUM OINTMENT 1 APPLIC EACH EYE ×2 (09:30→20:13)
[2022-04-18] MEDS: FLUCONAZOLE 200 MG/NACL 100 ML 200 MG/100 ML BAG 100 MG IVPB (09:31)
[2022-04-18] MEDS: FERROUS SULFATE 324 MG TABLET PO ×2 (09:31→17:31)
[2022-04-18] MEDS: CYANOCOBALAMIN 1,000 MCG TABLET 2000 MCG PO (09:31)
[2022-04-18 09:36] LABS: Glucose Point of Care 55 mg/dl (65-105)
[2022-04-18 09:36] LABS: Glucose Point of Care 95 mg/dl (65-105)
--- NOTE | 2022-04-18 09:36 | WPDINTPN ---
Progress Note: A&P Assessment and Plan (1) Leukocytosis: Code(s): D72.829 - Elevated white blood cell count, unspecified Status: Acute Assessment and Plan: 04/11: Increasing WBC count with low-grade fevers, -04/11/2022 bilateral lower extremity venous Dopplers: Negative for DVT -04/11/2022 bilateral upper extremity venous Dopplers:Patent bilateral upper extremity veins. No evidence of deep venous thrombosis. 04/11/2022: Right upper quadrant ultrasound: Normal limited abdominal ultrasound 04/11/2022 , UA suggests a UTI, patient was pancultured, Street catheter removed 04/12/2022 CT scan of the chest abdomen and pelvis: Improving bilateral airspace consolidation which may represent resolving pneumonia and/or atelectasis.: Improving pleural effusions.: Improving small pericardial effusion.: There is mild thickening of the rectum with subtle perirectal infiltration, suspicious for proctitis, new since prior examination. 04/13 urine cultures growing Sagrario glabrata -patient was started on fluconazole 04/14 -although WBC remains elevated she has become afebrile is overnight. Continue to monitor 04/16-remains afebrile WBC slightly improved -patient currently on ertapenem and fluconazole which will be continue, WBC count improving -completed a 10 day course of vancomycin and a 5 day course of levofloxacin. Now both discontinued (2) Encephalopathy: Code(s): G93.40 - Encephalopathy, unspecified Status: Acute Assessment and Plan: Patient was unresponsive on 04/02 and had to be intubated Likely toxic metabolic encephalopathy Her blood glucose and ABG abnormal but would not explain her mental status CT head done and showed IMPRESSION: 1. 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 2. Mild nonspecific cerebral white matter disease, which likely represents chronic small vessel ischemic disease. Patient on so on some medication that would cause sedation including Neurontin tramadol and Xanax which have been discontinued -off all sedation since 04/08/2022 -04/09/2022 CT brain with no acute intracranial abnormalities, chronic bilateral lacunar infarctions, chronic age-related findings -ammonia level normal on 04/09 -patient neurology evaluation recommendation -04/10/2022 EEG did not show any, consistent with metabolic encephalopathy - 04/12 -patient had MRI done at [facility]. Report report shows chronic small-vessel disease - 12/8 -repeat EEG was done and report is pending -04/14 discussed with nephrology and Neurology, will continue to hold sedation. Slowly improving. Continue to use is keep her off sedation continue dialysis (3) Acute on chronic respiratory failure: Code(s): J96.20 - Acute and chronic respiratory failure, unspecified whether with hypoxia or hypercapnia Status: Acute Assessment and Plan: Multifactorial acute on chronic respiratory failure secondary to congestive heart failure, restrictive lung disease from obesity hypoventilation, history of asthma, volume overload from kidney disease, large pleural effusions 04/02 Patient was on BiPAP but was intubated due to poor mental status Vent settings and ABG reviewed 04/03: Chest CT shows There are airspace opacities bilaterally with a dependent predominance, consistent with atelectasis. There are moderate-sized pleural effusions. Patient is getting hemodialysis today to remove fluid Patient received hemodialysis on 04/02, 06/03, 04/04, 04/05, 04/06, 04/07 -04/04/2022: Left-sided thoracenteses with 1000 mL of fluid removal which was done by IR -04/05/2022: Right thoracentesis with 950 ml of fluid removal by IR CXR this morning shows: ?Mild opacities in the bilateral mid and lower lung zones likely combination of mild pulmonary edema and discoid atelectasis although differential includes pneumonia.. Decreased tiny bilateral pleural effusions Continue bronchodilators -off sedation since 04/08, 8:00 a.m -patient tolerated PSV
--- NOTE | 2022-04-18 10:00 | P.PNNP_ITS ---
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 (3) Acute on chronic respiratory failure: Code(s): J96.20 - Acute and chronic respiratory failure, unspecified whether with hypoxia or hypercapnia Status: Acute Assessment and Plan: * multifactorial: * volume overload * asthma/COPD(?) * RAINA/OHS * anemia * Echo with good LV EF, grade 2 diastolic dysfunction, mild/moderate MR * fluid status optimized with ultrafiltration with dialysis * plan for eventual tracheostoy and G-tube placement for penitentiary weaning (4) Hyponatremia: Code(s): E87.1 - Hypo-osmolality and hyponatremia Status: Acute Assessment and Plan: * most likely dilutional because the patient is not making much urine * s/p 3% saline (on 04/16/22) with improvement in sodium * dialysis should help further correct (5) Hypertension: Code(s): I10 - Essential (primary) hypertension Status: Chronic Assessment and Plan: * reasonable control at this time * on verapamil and metoprolol (6) Anemia: Code(s): D64.9 - Anemia, unspecified Status: Acute Assessment and Plan: * likely due to MARINA, CKD and acute illness * Epogen with HD * follow trend of H/H (7) Encephalopathy: Code(s): G93.40 - Encephalopathy, unspecified Status: Acute Assessment and Plan: * this seems to be persistant * evaluation/testing to date noted: * off sedatives * CT brain with nothing acute * ammonia level okay * blood gases look okay * other electrolytes look okay * MRI negative as well * continue supportive therapy (8) Type 2 diabetes mellitus with hyperglycemia: Code(s): E11.65 - Type 2 diabetes mellitus with hyperglycemia Status: Chronic Assessment and Plan: * accuchecks and SSI per hospitalist/general accountant * glycemic control Will continue to follow. Subjective Date/time seen: 04/18/22 10:00 Tolerated hemodialysis treatment yesterday without any issues or problems; plan for G-tube placement and tracheostomy given need for prolonged ventilator weaning; off sedation and does track examiner with her eyes and follows some commands; no other issues/events overnight or earlier this AM. Exam Narrative: General: WD/WN female in NAD; intubated and on ventilator Heart: normal S1 and S2; no rub Lungs: coarse breath sounds throughout Abdomen: soft, nontender, nondistended, positive bowel sounds Extremities: no cyanosis or clubbing; no edema Skin: warm and intact Objective Data Vital Signs Vital Signs: Vital Signs Temp Pulse Resp BP Pulse Ox O2 Del Method FiO2 04/18/22 07:51 68 100 Mechanical Ventilation 30 04/18/22 06:00 72 04/18/22 06:00 72 16 131/51 L 100 04/18/22 04:00 99.9 F H 74 16 116/52 L 100 04/18/22 04:00 7
--- NOTE | 2022-04-18 10:00 | PM.PNNEP ---
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 (3) Acute on chronic respiratory failure: Code(s): J96.20 - Acute and chronic respiratory failure, unspecified whether with hypoxia or hypercapnia Status: Acute Assessment and Plan: multifactorial: volume overload asthma/COPD(?) RAINA/OHS anemia Echo with good LV EF, grade 2 diastolic dysfunction, mild/moderate MR fluid status optimized with ultrafiltration with dialysis plan for eventual tracheostoy and G-tube placement for longterm weaning (4) Hyponatremia: Code(s): E87.1 - Hypo-osmolality and hyponatremia Status: Acute Assessment and Plan: most likely dilutional because the patient is not making much urine s/p 3% saline (on 04/16/22) with improvement in sodium dialysis should help further correct (5) Hypertension: Code(s): I10 - Essential (primary) hypertension Status: Chronic Assessment and Plan: reasonable control at this time on verapamil and metoprolol (6) Anemia: Code(s): D64.9 - Anemia, unspecified Status: Acute Assessment and Plan: likely due to MARINA, CKD and acute illness Epogen with HD follow trend of H/H (7) Encephalopathy: Code(s): G93.40 - Encephalopathy, unspecified Status: Acute Assessment and Plan: this seems to be persistant evaluation/testing to date noted: off sedatives CT brain with nothing acute ammonia level okay blood gases look okay other electrolytes look okay MRI negative as well continue supportive therapy (8) Type 2 diabetes mellitus with hyperglycemia: Code(s): E11.65 - Type 2 diabetes mellitus with hyperglycemia Status: Chronic Assessment and Plan: accuchecks and SSI per 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 Subjective Date/time seen: 04/18/22 10:00 Tolerated hemodialysis treatment yesterday without any issues or problems; plan for G-tube placement and tracheostomy given need for prolonged ventilator weaning; off sedation and does track examiner with her eyes and follows some commands; no other issues/events overnight or earlier this AM. Exam Narrative: General: WD/WN female in NAD; intubated and on ventilator Heart: normal S1 and S2; no rub Lungs: coarse breath sounds throughout Abdomen: soft, nontender, nondistended, positive bowel sounds Extremities: no cyanosis or clubbing; no edema Skin: warm and intact Objective Data Vital Signs Vital Signs: Vital Signs Temp Pulse Resp BP Pulse Ox O2 Del Method FiO2 04/18/22 07:51 68 100 Mechanical Ventilation 30 04/18/22 06:00 72 04/18/22 06:00 72 16 131/51 L 100 04/18/22 04:00 99.9 F H 74 16 116/52 L 100 04/18/22 04:00 71 04/18/22 04:00 100 Mechanical Ventilation 30 04/18/22 04:00 30 04/18/22 05:02 73 100 Mechanical Ventilation 30 04/18/22 02:00 75 22 H 121/52 L 100 04/18/22 02:00 75 04/18/22 02:01 76 100 Mechanical Ventilation 30 04/18/22 00:00 76 04/18/22 00:00 100 Mechanical Ventilation 30 04/18/22 00:00 30 04/18/22 00:00 98.8 F 76 20 117/48 L 100 04/17/22 23:14 76 100 Mechanical Ventilation 30 04/17/22 22:45 79 120/57 L 04/17/22 22:00 83 25 H 132/60 100 04/17/22 22:00 83 04/17/22 20:00 83 04/17/22 20:00 99 [employer]
[2022-04-18] MEDS: AMIODARONE 360 MG/D5W 200 ML 360 MG/200 ML BAG 16.67 MG IV CONT (10:22)
[2022-04-18] MEDS: METOPROLOL TARTRATE 25 MG TABLET FEED TUBE ×2 (10:24→22:18)
--- NOTE | 2022-04-18 11:09 | PCNFU ---
Nutrition Follow-Up Complete: Inadequate oral intake related to NPO, mechanical ventilation as evidenced by need for full tube feeding Goal: Meet estimated protein energy needs Patient is progressing towards goal. We will continue current goal. Pt current nutrition is NPO. Last recorded weight is 111.8 kg. Bowel Motility: +BM reported 04/14 Labs Reviewed:Glu 124, GFR 13, BUN 46, Cr 3.4,Alb 3.0,Na 135 Meds Noted:Heparin,Ferrous Sulfate, Coumadin,Lantus, NovoLog, Protonix, Synthroid, B12 Skin: WNL Additional Notes: Patient is NPO for PEG placement today. Recommend tube feedings of Vital AF 1.2 65 ml/hr goal rate, providing 1716 kcals/107 gms protein/1160 ml water. This will meet 100% kcal and 96% protein needs. Flush 30 ml q 4 hours. Agree with diet orders. Monitoring labs, tolerance, stool pattern, meds, skin, plan of care every Sunday and Sunday. Follow daily in ICU rounds
[2022-04-18 11:10] LABS: Glucose Point of Care 63 mg/dl (65-105)
[2022-04-18 12:13] LABS: Glucose Point of Care 133 mg/dl (65-105)
[2022-04-18] MEDS: PROPOFOL IV EMULSION 100 ML 4.7 MG IV CONT (12:20)
--- NOTE | 2022-04-18 12:22 | SUR.OPER ---
Dr. Martin and ICU nurse Any managing sedation.
--- NOTE | 2022-04-18 12:46 | PM.IMPN ---
Progress Note: A&P Assessment and Plan (1) Encephalopathy: Code(s): G93.40 - Encephalopathy, unspecified Status: Acute Assessment and Plan: Patient was unresponsive on 04/02 and had to be intubated Likely toxic metabolic encephalopathy Her blood glucose and ABG abnormal but would not explain her mental status .04/13 -repeat EEG was done and report is pending -04/14 discussed with nephrology and Neurology, will continue to hold sedation. Slowly improving. Continue to use is keep her off sedation continue dialysis (2) Acute on chronic respiratory failure: Code(s): J96.20 - Acute and chronic respiratory failure, unspecified whether with hypoxia or hypercapnia Status: Acute Assessment and Plan: Multifactorial acute on chronic respiratory failure secondary to congestive heart failure, restrictive lung disease from obesity hypoventilation, history of asthma, volume overload from kidney disease, large pleural effusions 04/02 Patient was on BiPAP but was intubated due to poor mental status Vent settings and ABG reviewed 04/03: Chest CT shows There are airspace opacities bilaterally with a dependent predominance, consistent with atelectasis. There are moderate-sized pleural effusions. Patient is getting hemodialysis today to remove fluid (3) CHF (congestive heart failure): Code(s): I50.9 - Heart failure, unspecified Status: Acute Assessment and Plan: Hemodialysis for fluid removal -left thoracentesis done on 04/04 -right thoracentesis done on 04/05 (4) Vrwic-ol-ybwumqy kidney injury: Code(s): N17.9 - Acute kidney failure, unspecified; N18.9 - Chronic kidney disease, unspecified Status: Acute Assessment and Plan: Patient is on hemodialysis and has right tunnel catheter Nephrology is following Patient has been dialyzed since 04/02 with significant fluid removal. -04/07/2022 patient had a left kidney biopsy by interventional radiologist, renal biopsy showed substantial signs of diabetes (5) Atrial fibrillation: Code(s): I48.91 - Unspecified atrial fibrillation Status: Chronic Assessment and Plan: Continue heparin infusion for anticoagulation 04/17 Patient was DC cardioverted to normal sinus rhythm today by Cardiology Beta-mike. Continue amiodarone but decrease rate to 0.5 (6) Type 2 diabetes mellitus with hyperglycemia: Code(s): E11.65 - Type 2 diabetes mellitus with hyperglycemia Status: Chronic Assessment and Plan: Continue insulin sliding scale Continue current Lantus dose (hold Lantus as patient getting PEG tube this afternoon) (7) Pericardial effusion: Code(s): I31.39 - Other pericardial effusion (noninflammatory) Status: Acute Assessment and Plan: Likely secondary to gross anasarca which has improved significantly with dialysis Hemodynamically stable 04/04/2022: Echocardiogram showed EF of 60-65%, grade 2 diastolic dysfunction, mild mitral valve regurg, [id number] tricuspid valve regurg, large left pleural effusion, small posterior pericardial effusion, RV systolic function is normal Plan DVT prophylaxis. GI prophylaxis. All records reviewed Discussed plan of care with the nursing staff and with the patient in detail. Answered all questions and concerns from the patient. All labs have been reviewed. Code status updated patient continues to need prolonged hospitalization for treatment of pleural effusion sepsis heart failure and renal failure dictation may have been done utilizing a voice recognition system. Attempts have been made to correct errors. However, there may be uncorrected grammatical, spelling, and recognition errors present. Time Spent With Patient Time with patient: 15 - 25 minutes Subjective Date/time seen: 04/18/22 12:46 Interval history: Reason for consult: Acute on chronic respiratory failure, congestive heart failure, acute kidney injury requiri
[2022-04-18 12:59] LABS: Glucose Point of Care 83 mg/dl (65-105)
--- NOTE | 2022-04-18 14:09 | PC.NURSE ---
Blood glucose 71. Dr. Martin aware. Advised to recheck in one hour and report findings if abnormal.
[2022-04-18] MEDS: ERTAPENEM SODIUM 0.5 GM in SODIUM CHLORIDE 0.9% IV 50 ML IVPB (14:41)
[2022-04-18 14:57] LABS: Glucose Point of Care 71 mg/dl (65-105)
[2022-04-18 14:57] LABS: Glucose Point of Care 58 mg/dl (65-105)
[2022-04-18 15:40] LABS: Glucose Point of Care 126 mg/dl (65-105)
--- NOTE | 2022-04-18 17:24 | PM.PNCARD ---
Progress Note: A&P Assessment and Plan (1) Persistent atrial fibrillation: Code(s): I48.19 - Other persistent atrial fibrillation Status: Acute Assessment and Plan: Previously paroxysmal AFib, on this admission persistent AFib, status post cardioversion 04/17/2022. Anticoagulated with heparin; change to Eliquis after her trache later this week? Maintaining sinus rhythm on metoprolol and IV amiodarone. Change amio to amio per FT (2) Chronic diastolic (congestive) heart failure: Code(s): I50.32 - Chronic diastolic (congestive) heart failure Status: Acute Assessment and Plan: EF 60-65%, diastolic dysfunction on echo. Volume overloaded due to chronic kidney disease Status post bilateral thoracentesis Blood pressure reasonably controlled. Volume management with dialysis (3) Acute respiratory failure: Code(s): J96.00 - Acute respiratory failure, unspecified whether with hypoxia or hypercapnia Status: Acute Assessment and Plan: Remains on a ventilator. May need tracheostomy Management per hospitalist (4) Wpgox-ax-wodrvfd kidney injury: Code(s): N17.9 - Acute kidney failure, unspecified; N18.9 - Chronic kidney disease, unspecified Status: Acute Assessment and Plan: On dialysis. Subjective Date/time seen: Follow-up for atrial fibrillation. Admitted with respiratory failure, renal failure, volume overload 04/01/2022. Intubated. Started on hemodialysis. She was cardioverted on 04/17/[address] Gillette. Also pleural effusion status post thoracentesis ease, DVT of the left lower extremity, 04/18/22 17:24 at bedside, says she doesn't seem to recognise him. Had PEG today. Pt remains on a ventilator, FiO2 30%. Telemetry shows sinus rhythm rate in the 60s. Review of Systems Review of Systems: ROS obtained fr EMR and ROS unobtainable: Yes unobtainable due to endotracheal tube, unobtainable due to medical condition and unobtainable due to mental status Exam Const: Other: Sedated obese elderly lady on ventilator support HENMT: Mouth: Yes moist mucous membranes Eyes: Sclera: sclerae normal Neck: Neck: supple Resp: Auscultation: clear to auscultation bilaterally Other: breath sounds relatively clear bilaterally anterior auscultation Cardio: Rate: regular rate and tachycardic Rhythm: regular rhythm and abnormal rhythm irregularly irregular Heart sounds: no murmurs Other: distant heart sounds GI: GI Palp: No Tenderness to palpation present (GI) Auscultation: normal bowel sounds Other: Feeding tube Skin: General skin exam: normal color Neuro: Other: sedated on ventilator Extrem: General: normal to inspection Other: Mild le edema biiat Psych: Other: Intubated and sedated Objective Data Vital Signs Vital Signs: Vital Signs - 24 hr 04/17/22 17:33 04/17/22 18:00 04/17/22 18:00 Temperature Pulse Rate 78 77 76 Respiratory Rate 21 H Blood Pressure 122/51 L Pulse Oximetry 99 100 Oxygen Delivery Mechanical Ventilation Fraction of Inspired Oxygen 30 04/17/22 20:15 04/17/22 20:00 04/17/22 20:00 Temperature 99.4 F Pulse Rate 77 77 Respiratory Rate 22 H Blood Pressure 103/48 L Pulse Oximetry 99 99 Oxygen Delivery Mechanical Ventilation Fraction of Inspired Oxygen 30 30 04/17/22 20:00 04/17/22 20:00 04/17/22 22:00 Temperature Pulse Rate 83 83 Respiratory Rate Blood Pressure Pulse Oximetry 99 Oxygen Delivery Mechanical Ventilation Fraction of Inspired Oxygen 30 04/17/22 22:00 04/17/22 22:45 04/17/22 23:14 Temperature Pulse Rate 83 79 76 Respiratory Rate 25 H Blood Pressure 132/60 120/57 L Pulse Oximetry 100 100 Oxygen Delivery Mechanical Ventilation Fraction of Inspired Oxygen 30 04/18/22 00:00 04/18/22 00:00 04/18/22 00:00 Temperature 98.8 F Pulse Rate 76 Respiratory Rate 20 Blood Pressu
[2022-04-18 17:34] LABS: Glucose Point of Care 99 mg/dl (65-105)
[2022-04-18 18:51] LABS: Glucose Point of Care 85 mg/dl (65-105)
[2022-04-18 20:43] LABS: Glucose Point of Care 86 mg/dl (65-105)
[2022-04-18 23:16] LABS: Partial Thromboplastin Time 68.8 SECONDS (22.3-36.8)
[2022-04-18] MEDS: HEPARIN SODIUM 5,000 UNITS/ML VIAL 3500 UNITS IV PUSH (23:33)
[2022-04-18 23:48] LABS: Glucose Point of Care 92 mg/dl (65-105)
--- NOTE | 2022-04-18 23:50 | PCRCNOTE ---
Patient was placed back into cmv mode due to constantly alarming low frequency.
[2022-04-19] VITALS (34 sets, daily range): BP systolic 121–144; BP diastolic 45–57; PULSE 56–81; RESP 10–22; TEMP 36–37.7; O2SAT 98–100
[2022-04-19] MEDS: HEPARIN SOD/D5W 100 UNITS/ML 25,000 UNITS/250 ML BAG 17 UNITS IV CONT (05:13)
[2022-04-19] MEDS: LEVOTHYROXINE SODIUM 100 MCG TABLET PO (05:18)
[2022-04-19 05:19] LABS: Glucose Point of Care 107 mg/dl (65-105)
[2022-04-19] MEDS: LEVOTHYROXINE SODIUM 75 MCG TABLET PO (05:19)
[2022-04-19 05:28] LABS: Basophils Absolute Auto 0.1 K/mm3 (0.0-0.1); Basophils Percent Auto 0.7 % (0.2-1.2); Eosinophils Absolute Auto 1.1 K/mm3 (0-0.3); Eosinophils Percent Auto 10.5 % (0-4.4); Hematocrit 27.4 % (37.0-47.0); Hemoglobin 8.1 g/dL (12.0-15.0); Immature Granulocyte Absolute 0.15 K/mm3 (0.00-0.031); Immature Granulocyte Percent A 1.4 % (0-0.5); Lymphocytes Absolute Auto 1.61 K/mm3 (0.9-3.2); Lymphocytes Percent Auto 15.4 % (18.3-44.2); Mean Corpuscular HGB Conc 29.6 g/dl (32-36); Mean Corpuscular Hemoglobin 23.1 pg (26-34); Mean Corpuscular Volume 78.3 fl (80-100); Mean Platelet Volume 10.8 fl (7.4-10.4); Monocytes Absolute Auto 1.4 K/mm3 (0.1-0.6); Monocytes Percent Auto 13.1 % (2.6-8.5); Neutrophils Absolute Auto 6.2 K/mm3 (1.3-6.7); Neutrophils Percent Auto 58.9 % (45.5-73.1); Platelet Count Result 297 k/mm3 (150-375); Red Cell Distribution Width 18.6 % (11.5-14.5); White Blood Count 10.5 K/mm3 (4.5-10.0)
[2022-04-19 05:43] LABS: INR 1.2; Prothrombin Time 14.9 Seconds (11.1-14.7)
[2022-04-19 05:44] LABS: Partial Thromboplastin Time 37.8 SECONDS (22.3-36.8)
[2022-04-19 05:54] LABS: Alveolar/Arterial O2 Gradient 59.3 mmHg; Base Excess ABG 2.7 mEq/l (+/-2.0); Carboxyhemoglobin 0.3 % THb (0-2.0); Device VENTILATOR; Fractional Inspired Oxygen 30 %; HCO3 ABG 26.5 mEq/l (22.0-26.0); Methemoglobin ABG 0.1 %THb (0-1.5); Modified Allen's Test Pass; Oxygen Content ABG 12.2 %vol (16.0-22.0); Oxygen Saturation ABG 98.3 % (95.0-100.0); Oxyhemoglobin 96.9 % THb (90.0-100.0); PCO2 ABG 37.4 mmHg (35.0-45.0); PO2 ABG 110.7 mmHg (80.0-100.0); PO2 FiO2 Ratio Arterial Blood 3.69 %; Reduced Hemoglobin 2.7 %THb (0-5.0); Site Drawn LEFT RADIAL; Total Hemoglobin 8.8 g/dL (12.0-18.0); pH ABG 7.468 (7.350-7.450)
[2022-04-19 05:55] LABS: Alanine Aminotransferase 27 U/L (6-35); Alkaline Phosphatase 91 U/L (38-126); Anion Gap 11 mmol/L (8-16); Aspartate Amino Transferase 38 U/L (14-36); Bilirubin,Total 0.3 mg/dL (0.2-1.3); Blood Urea Nitrogen 66 mg/dL (7-17); Calcium 8.3 mg/dL (8.4-10.2); Carbon Dioxide 26 mmol/L (22-30); Chloride 94 mmol/L (98-107); Estimated CRCL calculation 13 ml/min; Estimated Glomerular Filt Rate 9; Glucose 112 mg/dL (65-110); Magnesium 1.9 mg/dL (1.6-2.3); Phosphorus 6.6 mg/dL (2.5-4.5); Potassium 4.2 mmol/L (3.4-5.0); Sodium 131 mmol/L (137-145)
[2022-04-19 05:55] LABS: Arterial Blood Gas PEEP 5 cmH2O; Arterial Blood Gas Tidal Volume 380 ml; Arterial Blood Gas Vent Mode CMV; Arterial Blood Gas Ventilator rate 16 /MIN
[2022-04-19] MEDS: HEPARIN SODIUM 5,000 UNITS/ML VIAL 6500 UNITS IV PUSH (06:01)
[2022-04-19 09:35] LABS: Glucose Point of Care 107 mg/dl (65-105)
--- NOTE | 2022-04-19 09:49 | WPDINTPN ---
Progress Note: A&P Assessment and Plan (1) Leukocytosis: Code(s): D72.829 - Elevated white blood cell count, unspecified Status: Acute Assessment and Plan: 04/11: Increasing WBC count with low-grade fevers, -04/11/2022 bilateral lower extremity venous Dopplers: Negative for DVT -04/11/2022 bilateral upper extremity venous Dopplers:Patent bilateral upper extremity veins. No evidence of deep venous thrombosis. 04/11/2022: Right upper quadrant ultrasound: Normal limited abdominal ultrasound 04/11/2022 , UA suggests a UTI, patient was pancultured, Street catheter removed 04/12/2022 CT scan of the chest abdomen and pelvis: Improving bilateral airspace consolidation which may represent resolving pneumonia and/or atelectasis.: Improving pleural effusions.: Improving small pericardial effusion.: There is mild thickening of the rectum with subtle perirectal infiltration, suspicious for proctitis, new since prior examination. 04/13 urine cultures growing Sagrario glabrata -patient was started on fluconazole 04/14 -although WBC remains elevated she has become afebrile is overnight. Continue to monitor -patient currently on ertapenem and fluconazole which will be continue, WBC count improving -completed a 10 day course of vancomycin and a 5 day course of levofloxacin. Now both discontinued (2) Encephalopathy: Code(s): G93.40 - Encephalopathy, unspecified Status: Acute Assessment and Plan: Patient was unresponsive on 04/02 and had to be intubated Likely toxic metabolic encephalopathy Her blood glucose and ABG abnormal but would not explain her mental status CT head done and showed IMPRESSION: 1. 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 2. Mild nonspecific cerebral white matter disease, which likely represents chronic small vessel ischemic disease. Patient on so on some medication that would cause sedation including Neurontin tramadol and Xanax which have been discontinued -off all sedation since 04/08/2022 -04/09/2022 CT brain with no acute intracranial abnormalities, chronic bilateral lacunar infarctions, chronic age-related findings -ammonia level normal on 04/09 -patient neurology evaluation recommendation -04/10/2022 EEG did not show any, consistent with metabolic encephalopathy - 04/12 -patient had MRI done at [facility]. Report report shows chronic small-vessel disease - 04/13 -repeat EEG was done and report is pending -04/14 discussed with nephrology and Neurology, will continue to hold sedation. Slowly improving. Keep off sedation (3) Acute on chronic respiratory failure: Code(s): J96.20 - Acute and chronic respiratory failure, unspecified whether with hypoxia or hypercapnia Status: Acute Assessment and Plan: Multifactorial acute on chronic respiratory failure secondary to congestive heart failure, restrictive lung disease from obesity hypoventilation, history of asthma, volume overload from kidney disease, large pleural effusions 04/02 Patient was on BiPAP but was intubated due to poor mental status Vent settings and ABG reviewed 04/03: Chest CT shows There are airspace opacities bilaterally with a dependent predominance, consistent with atelectasis. There are moderate-sized pleural effusions. Patient is getting hemodialysis today to remove fluid Patient received hemodialysis on 04/02, 06/03, 04/04, 04/05, 04/06, 04/07 -04/04/2022: Left-sided thoracenteses with 1000 mL of fluid removal which was done by IR -04/05/2022: Right thoracentesis with 950 ml of fluid removal by IR CXR this morning shows: ?Mild opacities in the bilateral mid and lower lung zones likely combination of mild pulmonary edema and discoid atelectasis although differential includes pneumonia.. Decreased tiny bilateral pleural effusions Continue bronchodilators -off sedation since 04/08, 8:00 a.m -patient tolerated PSV 12/12 yesterday and is on 04/13 again today -[facility]
--- NOTE | 2022-04-19 11:34 | P.PNNP_ITS ---
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 (3) Acute on chronic respiratory failure: Code(s): J96.20 - Acute and chronic respiratory failure, unspecified whether with hypoxia or hypercapnia Status: Acute Assessment and Plan: * multifactorial: * volume overload * asthma/COPD(?) * RAINA/OHS * anemia * Echo with good LV EF, grade 2 diastolic dysfunction, mild/moderate MR * fluid status optimized with ultrafiltration with dialysis * s/p G-tube placement * planning tracheostomy tomorrow (04/20/22) (4) Hyponatremia: Code(s): E87.1 - Hypo-osmolality and hyponatremia Status: Acute Assessment and Plan: * most likely dilutional because the patient is not making much urine * s/p 3% saline (on 04/16/22) with improvement in sodium * dialysis should help further correct (5) Hypertension: Code(s): I10 - Essential (primary) hypertension Status: Chronic Assessment and Plan: * reasonable control at this time * on verapamil and metoprolol (6) Anemia: Code(s): D64.9 - Anemia, unspecified Status: Acute Assessment and Plan: * likely due to MARINA, CKD and acute illness * Epogen with HD * follow trend of H/H (7) Encephalopathy: Code(s): G93.40 - Encephalopathy, unspecified Status: Acute Assessment and Plan: * this seems to slowly improving * evaluation/testing to date noted: * off sedatives * CT brain with nothing acute * ammonia level okay * blood gases look okay * other electrolytes look okay * MRI negative as well * continue supportive therapy (8) Type 2 diabetes mellitus with hyperglycemia: Code(s): E11.65 - Type 2 diabetes mellitus with hyperglycemia Status: Chronic Assessment and Plan: * accuchecks and SSI per hospitalist/cable worker helper * glycemic control Will continue to follow. Subjective Date/time seen: 04/19/22 11:34 Tolerating hemodialysis treatment at the time of my visit (seen on HD at 11:20AM); PEG tube placement yesterday and she tolerated that intervention without issue; remains on ventilator support; noted plans for tracheostomy t omorrow; no apparent distress noted. Exam Narrative: General: WD/WN female in NAD; intubated and on ventilator Heart: normal S1 and S2; no rub Lungs: coarse breath sounds throughout Abdomen: soft, nontender, nondistended, positive bowel sounds Extremities: no cyanosis or clubbing; no edema Skin: no rash Objective Data Vital Signs Vital Signs: Vital Signs Temp Pulse Resp BP Pulse Ox O2 Del Method FiO2 04/19/22 11:30 98.6 F 79 17 123/47 L 100 04/19/22 11:17 76 137/47 L 04/19/22 11:43 80 04/19/22 11:42 80 04/19/22 11:00 81
--- NOTE | 2022-04-19 11:34 | PM.PNNEP ---
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 (3) Acute on chronic respiratory failure: Code(s): J96.20 - Acute and chronic respiratory failure, unspecified whether with hypoxia or hypercapnia Status: Acute Assessment and Plan: multifactorial: volume overload asthma/COPD(?) RAINA/OHS anemia Echo with good LV EF, grade 2 diastolic dysfunction, mild/moderate MR fluid status optimized with ultrafiltration with dialysis s/p G-tube placement planning tracheostomy tomorrow (04/20/22) (4) Hyponatremia: Code(s): E87.1 - Hypo-osmolality and hyponatremia Status: Acute Assessment and Plan: most likely dilutional because the patient is not making much urine s/p 3% saline (on 04/16/22) with improvement in sodium dialysis should help further correct (5) Hypertension: Code(s): I10 - Essential (primary) hypertension Status: Chronic Assessment and Plan: reasonable control at this time on verapamil and metoprolol (6) Anemia: Code(s): D64.9 - Anemia, unspecified Status: Acute Assessment and Plan: likely due to MARINA, CKD and acute illness Epogen with HD follow trend of H/H (7) Encephalopathy: Code(s): G93.40 - Encephalopathy, unspecified Status: Acute Assessment and Plan: this seems to slowly improving evaluation/testing to date noted: off sedatives CT brain with nothing acute ammonia level okay blood gases look okay other electrolytes look okay MRI negative as well continue supportive therapy (8) Type 2 diabetes mellitus with hyperglycemia: Code(s): E11.65 - Type 2 diabetes mellitus with hyperglycemia Status: Chronic Assessment and Plan: accuchecks and SSI per hospitalist/supervisor shuttle veneering glycemic control Will continue to follow. Subjective Date/time seen: 04/19/22 11:34 Tolerating hemodialysis treatment at the time of my visit (seen on HD at 11:20AM); PEG tube placement yesterday and she tolerated that intervention without issue; remains on ventilator support; noted plans for tracheostomy tomorrow; no apparent distress noted. Exam Narrative: General: WD/WN female in NAD; intubated and on ventilator Heart: normal S1 and S2; no rub Lungs: coarse breath sounds throughout Abdomen: soft, nontender, nondistended, positive bowel sounds Extremities: no cyanosis or clubbing; no edema Skin: no rash Objective Data Vital Signs Vital Signs: Vital Signs Temp Pulse Resp BP Pulse Ox O2 Del Method FiO2 04/19/22 11:30 98.6 F 79 17 123/47 L 100 04/19/22 11:17 76 137/47 L 04/19/22 11:43 80 04/19/22 11:42 80 04/19/22 11:00 81 139/50 L 04/19/22 08:00 71 14 100 Mechanical Ventilation 30 04/19/22 08:00 68 04/19/22 08:00 98.7 F 69 14 136/47 L 100 04/19/22 10:45 76 122/51 L 04/19/22 10:30 75 129/49 L 04/19/22 10:15 76 135/53 L 04/19/22 10:00 78 128/53 L 04/19/22 09:45 74 134/48 L 04/19/22 09:30 68 140/57 L 04/19/22 09:15 71 142/49 H 04/19/22 09:00 70 131/49 L 04/19/22 08:45 71 143/57 H 04/19/22 08:32 71 100 Mechanical Ventilation 30 04/19/22 08:30 68 142/50 H 04/19/22 08:00 30 04/19/22 08:00 98.8 F 68 17 136/47 L 100 04/19/22 08:16 66
[2022-04-19] MEDS: FLUCONAZOLE 200 MG/NACL 100 ML 200 MG/100 ML BAG 100 MG IVPB (11:41)
[2022-04-19] MEDS: MINERAL OIL/WHITE PETROLATUM OINTMENT 1 APPLIC EACH EYE ×2 (11:41→21:15)
[2022-04-19] MEDS: FERROUS SULFATE 324 MG TABLET PO ×2 (11:42→17:34)
[2022-04-19] MEDS: METOPROLOL TARTRATE 25 MG TABLET FEED TUBE ×2 (11:42→21:22)
[2022-04-19] MEDS: PANTOPRAZOLE SODIUM IV 40 MG VIAL IV PUSH (11:42)
[2022-04-19] MEDS: MONTELUKAST SODIUM 10 MG TABLET PO (11:42)
[2022-04-19] MEDS: CYANOCOBALAMIN 1,000 MCG TABLET 2000 MCG PO (11:42)
[2022-04-19] MEDS: AMIODARONE HCL 200 MG TABLET 400 MG FEED TUBE ×2 (11:43→21:22)
[2022-04-19] MEDS: INSULIN GLARGINE (*BKC) 100 UNITS/ML 20 UNITS SUB-Q ×2 (11:44→21:15)
--- NOTE | 2022-04-19 11:53 | PCFNICU ---
ICU Rounding Note: Pt current nutrition is Vital AF 1.2 at 65 ml/hr. Last recorded weight is 112 kg. Bowel Motility:+Bm reported 04/14 Labs Reviewed:Glu 112, GFR 9,BUN 66, Cr 4.6 Meds Noted:Heparin,Ferrous Sulfate, Coumadin,Lantus, NovoLog, Protonix, Synthroid, B12 Skin: WNL Additional Notes: Patient remains on mechanical vent. PEG 04/18, tolerating tube feedings at goal rate. Flush 30 ml q 4 hours. Agree with diet orders. Dialysis today. Following daily in ICU rounds. Monitoring labs, tolerance, stool pattern, meds, skin, plan of care.
[2022-04-19 12:28] LABS: Glucose Point of Care 130 mg/dl (65-105)
[2022-04-19 13:26] LABS: Partial Thromboplastin Time 92.4 SECONDS (22.3-36.8)
[2022-04-19] MEDS: TRIAMCINOLONE ACET 0.1% CREAM 15 GM TUBE 1 APPLIC TOPICAL (17:43)
[2022-04-19 17:45] LABS: Glucose Point of Care 171 mg/dl (65-105)
[2022-04-19] MEDS: HEPARIN SOD/D5W 100 UNITS/ML 25,000 UNITS/250 ML BAG 20 UNITS IV CONT (18:00)
--- NOTE | 2022-04-19 18:03 | PM.IMHP ---
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 Chronic diastolic (congestive) heart failure Chronic kidney disease, stage 3 unspecified Chronic kidney disease, stage III (moderate) COPD (chronic obstructive pulmonary disease) Coronary artery disease involving [place] heart without angina pectoris Depression DVT (deep venous thrombosis) ARACELY (generalized anxiety disorder) GERD without esophagitis History of stroke Hypertensive heart disease with heart failure and stage 3 chronic kidney disease Hyponatremia Hypothyroid Left knee DJD Long-term insulin use Peripheral polyneuropathy Pre-ulcerative calluses Sepsis Type 2 diabetes mellitus with hyperglycemia Family History Family History Father Hypertension Family history of coronary artery disease Sibling Hypertension Family history of coronary artery disease Mother Cerebrovascular accident Other Asthma Depression Family history of Alzheimer's disease Family history of arthritis Family history of cardiovascular disease Family history of lymphoma Family history of obesity Family history of seizure disorder Social History Social History Smoking packs per day: 2 Smoking cigarettes per day: 40.0 Years smoked: 30 Smoking pack-years: 60.00 Smoking status: Former smoker Tobacco type: cigarettes Second hand tobacco smoke exposure: No Smoking end date: 05/07/89 Alcohol intake: never Drinks per week: 1 Alcohol use details: 1/MONTH Substance use: never Substance use type: marijuana Lack of Transportation: No Lack of Food: Never True Current Housing: I Have Housing Concerned About Future Housing: No Difficulty Paying Gas/Electric Bills: No Difficulty Paying for Meds: No Currently Unemployed: No Education: Bachelor's Degree Difficulty w/ Childcare or Family Care: No Gender identity (if verbalized by the patient): Female Spiritual care concerns: No Meds Home Medications and Allergies Home Medications Medication Instructions Recorded Confirmed Type cyanocobalamin (vitamin B-12) 2,000 mcg PO DAILY 03/19/19 03/31/22 History 2,000 mcg tablet,extended release (Vitamin B-12 ER) fluticasone propionate 50 2 spray intranasal DAILY 03/19/19 03/31/22 History mcg/actuation nasal spray,suspension ferrous sulfate 325 mg (65 mg 325 mg PO BID #180 tabs 11/22/20 03/31/22 Rx iron) tablet,delayed release insulin glargine 100 unit/mL (3 40 unit subcut HS 07/04/21 03/31/22 History mL) subcutaneous pen (Lantus Solostar U-100 Insulin) insulin syringe-needle U-100 1 mL #100 ea 10/14/21 03/31/22 Rx 31 gauge x 5/16 (BD Insulin Syringe Ultra-Fine) montelukast 10 mg tablet 10 mg PO QAM 11/22/21 03/31/22 History clopidogrel 75 mg tablet (Plavix) 75 mg PO DAILY #90 tabs 12/05/21 03/31/22 Rx albuterol sulfate 90 mcg/actuation 2 puff inhalation QID 02/11/22 03/31/22 History aerosol inhaler (Ventolin HFA) insulin aspart U-100 100 unit/mL 10 - 30 sliding scale dose subcut 02/11/22 03/31/22 History (3 mL) subcutaneous pen (Novolog TIDWM Flexpen U-100 Insulin aspart) verapamil 360 mg 24 hr 360 mg PO DAILY 02/11/22 03/31/22 History capsule,extended release blood sugar diagnostic (OneTouch #400 ea 02/20/22 03/31/22 Rx Verio test strips) fluticasone fur. 200 mcg-umeclid 1 puff inhalation DAILYRT #1 ea 02/28/22 03/31/22 Rx 62.5 mcg-vilant 25 mcg inhalat.powder (Trelegy Ellipta) gabapentin 300 mg capsule 300 mg PO BID #60 caps 02/28/22
--- NOTE | 2022-04-19 18:33 | WPDCN ---
Assessment and Plan Assessment and plan (1) Acute on chronic respiratory failure: Code(s): J96.20 - Acute and chronic respiratory failure, unspecified whether with hypoxia or hypercapnia Status: Acute Assessment and Plan: Plan OR for trachestomy. 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 Chronic diastolic (congestive) heart failure Chronic kidney disease, stage 3 unspecified Chronic kidney disease, stage III (moderate) COPD (chronic obstructive pulmonary disease) Coronary artery disease involving [place] heart without angina pectoris Depression DVT (deep venous thrombosis) ARACELY (generalized anxiety disorder) GERD without esophagitis History of stroke Hypertensive heart disease with heart failure and stage 3 chronic kidney disease Hyponatremia Hypothyroid Left knee DJD Long-term insulin use Peripheral polyneuropathy Pre-ulcerative calluses Sepsis Type 2 diabetes mellitus with hyperglycemia Family History Family History Father Hypertension Family history of coronary artery disease Sibling Hypertension Family history of coronary artery disease Mother Cerebrovascular accident Other Asthma Depression Family history of Alzheimer's disease Family history of arthritis Family history of cardiovascular disease Family history of lymphoma Family history of obesity Family history of seizure disorder Social History Social History Smoking packs per day: 2 Smoking cigarettes per day: 40.0 Years smoked: 30 Smoking pack-years: 60.00 Smoking status: Former smoker Tobacco type: cigarettes Second hand tobacco smoke exposure: No Smoking end date: 05/07/89 Alcohol intake: never Drinks per week: 1 Alcohol use details: 1/MONTH Substance use: never Substance use type: marijuana Lack of Transportation: No Lack of Food: Never True Current Housing: I Have Housing Concerned About Future Housing: No Difficulty Paying Gas/Electric Bills: No Difficulty Paying for Meds: No Currently Unemployed: No Education: Bachelor's Degree Difficulty w/ Childcare or Family Care: No Gender identity (if verbalized by the patient): Female Spiritual care concerns: No Meds Home Medications and Allergies Home Medications Medication Instructions Recorded Confirmed Type cyanocobalamin (vitamin B-12) 2,000 mcg PO DAILY 03/19/19 03/31/22 History 2,000 mcg tablet,extended release (Vitamin B-12 ER) fluticasone propionate 50 2 spray intranasal DAILY 03/19/19 03/31/22 History mcg/actuation nasal spray,suspension ferrous sulfate 325 mg (65 mg 325 mg PO BID #180 tabs 11/22/20 03/31/22 Rx iron) tablet,delayed release insulin glargine 100 unit/mL (3 40 unit subcut HS 07/04/21 03/31/22 History mL) subcutaneous pen (Lantus Solostar U-100 Insulin) insulin syringe-needle U-100 1 mL #100 ea 10/14/21 03/31/22 Rx 31 gauge x 5/16 (BD Insulin Syringe Ultra-Fine) montelukast 10 mg tablet 10 mg PO QAM 11/22/21 03/31/22 History clopidogrel 75 mg tablet (Plavix) 75 mg PO DAILY #90 tabs 12/05/21 03/31/22 Rx albuterol sulfate 90 mcg/actuation 2 puff inhalation QID 02/11/22 03/31/22 History aerosol inhaler (Ventolin HFA) insulin aspart U-100 100 unit/mL 10 - 30 sliding scale dose subcut 02/11/22 03/31/22 History (3 mL) subcutaneous pen (Novolog TIDWM Flexpen
[2022-04-19 19:34] LABS: Partial Thromboplastin Time 127.1 SECONDS (22.3-36.8)
[2022-04-19] MEDS: INSULIN ASPART (*BKC) 100 UNITS/ML SUB-Q (21:15)
[2022-04-19 21:29] LABS: Glucose Point of Care 204 mg/dl (65-105)
[2022-04-20] VITALS (78 sets, daily range): BP systolic 102–156; BP diastolic 44–137; PULSE 60–75; RESP 4–26; TEMP 36.8–37.3; O2SAT 98–100
[2022-04-20 00:59] LABS: Glucose Point of Care 218 mg/dl (65-105)
[2022-04-20] MEDS: INSULIN ASPART (*BKC) 100 UNITS/ML SUB-Q ×2 (01:22→22:31)
[2022-04-20 03:07] LABS: Basophils Absolute Auto 0.1 K/mm3 (0.0-0.1); Eosinophils Absolute Auto 1.1 K/mm3 (0-0.3); Eosinophils Percent Auto 8.2 % (0-4.4); Hemoglobin 8.3 g/dL (12.0-15.0); Immature Granulocyte Absolute 0.24 K/mm3 (0.00-0.031); Immature Granulocyte Percent A 1.8 % (0-0.5); Lymphocytes Absolute Auto 1.94 K/mm3 (0.9-3.2); Lymphocytes Percent Auto 14.2 % (18.3-44.2); Mean Corpuscular HGB Conc 29.6 g/dl (32-36); Mean Corpuscular Hemoglobin 22.7 pg (26-34); Mean Corpuscular Volume 76.7 fl (80-100); Mean Platelet Volume 9.3 fl (7.4-10.4); Monocytes Absolute Auto 1.9 K/mm3 (0.1-0.6); Monocytes Percent Auto 14.2 % (2.6-8.5); Neutrophils Absolute Auto 8.3 K/mm3 (1.3-6.7); Neutrophils Percent Auto 60.6 % (45.5-73.1); Platelet Count Result 398 k/mm3 (150-375); Red Blood Count 3.65 M/mm3 (4.2-5.4); Red Cell Distribution Width 18.6 % (11.5-14.5); White Blood Count 13.6 K/mm3 (4.5-10.0)
[2022-04-20 03:18] LABS: Partial Thromboplastin Time 39.5 SECONDS (22.3-36.8)
[2022-04-20 03:37] LABS: Alanine Aminotransferase 29 U/L (6-35); Albumin Level 3.2 g/dL (3.5-5.1); Alkaline Phosphatase 106 U/L (38-126); Anion Gap 9 mmol/L (8-16); Aspartate Amino Transferase 37 U/L (14-36); Bilirubin,Total 0.3 mg/dL (0.2-1.3); Blood Urea Nitrogen 48 mg/dL (7-17); Calcium 8.3 mg/dL (8.4-10.2); Carbon Dioxide 29 mmol/L (22-30); Chloride 96 mmol/L (98-107); Estimated CRCL calculation 16 ml/min; Estimated Glomerular Filt Rate 11; Glucose 181 mg/dL (65-110); Magnesium 1.9 mg/dL (1.6-2.3); Phosphorus 5.2 mg/dL (2.5-4.5); Potassium 4.4 mmol/L (3.4-5.0); Sodium 134 mmol/L (137-145)
[2022-04-20 05:42] LABS: Alveolar/Arterial O2 Gradient 65.2 mmHg; Base Excess ABG 5.6 mEq/l (+/-2.0); Carboxyhemoglobin 0.3 % THb (0-2.0); Fractional Inspired Oxygen 30 %; Methemoglobin ABG 0.2 %THb (0-1.5); Oxygen Content ABG 14.2 %vol (16.0-22.0); Oxygen Saturation ABG 97.7 % (95.0-100.0); Oxyhemoglobin 96.1 % THb (90.0-100.0); PCO2 ABG 43.2 mmHg (35.0-45.0); PO2 ABG 97.9 mmHg (80.0-100.0); PO2 FiO2 Ratio Arterial Blood 3.26 %; Reduced Hemoglobin 3.4 %THb (0-5.0); Total Hemoglobin 10.4 g/dL (12.0-18.0); pH ABG 7.459 (7.350-7.450)
[2022-04-20 05:43] LABS: Arterial Blood Gas PEEP 5 cmH2O; Arterial Blood Gas Vent Mode ASV; Device VENTILATOR; Modified Allen's Test Unable to perform; Site Drawn RIGHT RADIAL
[2022-04-20] MEDS: TRIAMCINOLONE ACET 0.1% CREAM 15 GM TUBE 1 APPLIC TOPICAL ×2 (08:09→22:32)
[2022-04-20] MEDS: PANTOPRAZOLE SODIUM IV 40 MG VIAL IV PUSH (08:09)
[2022-04-20] MEDS: MINERAL OIL/WHITE PETROLATUM OINTMENT 1 APPLIC EACH EYE ×2 (08:10→22:32)
[2022-04-20] MEDS: FLUCONAZOLE 200 MG/NACL 100 ML 200 MG/100 ML BAG 100 MG IVPB (08:31)
[2022-04-20 08:33] LABS: Glucose Point of Care 115 mg/dl (65-105)
--- NOTE | 2022-04-20 09:11 | WPDHPUPDATE1 ---
History and Physical Update Update Date/Time: 04/20/22 09:11 History and Physical has been reviewed, including an updated exam of the patient. There are NO changes in the patient's condition. Risks, benefits, and alternatives have been discussed and questions answered. Patient agrees to proceed with procedure.
--- NOTE | 2022-04-20 09:12 | WPDHPUPDATE1 ---
History and Physical Update Update Date/Time: 04/20/22 09:12 History and Physical has been reviewed, including an updated exam of the patient. There are NO changes in the patient's condition. Risks, benefits, and alternatives have been discussed and questions answered. Patient agrees to proceed with procedure.
--- NOTE | 2022-04-20 09:54 | PC.NURSE ---
Addendum entered by Marla Haywood RN 04/20/22 17:27: 1615 BG 145. lantus given. 1645 Daughter called and family has decided on [facility]. reconciliation coordinator notified. Addendum entered by Marla Haywood RN 04/20/22 13:44: [address] 112[address] Per Dr Martin, continue to hold lantus and get BG in 2 hours. Addendum entered by Marla Haywood RN 04/20/22 11:23: 1034 Patient back in room. BG 101-per Dr. Martin, hold 20 units of lantus and recheck in 2 hours. If increase in BG, give lantus. Original Note: All PO meds and lantus held per Dr. Martin for tracheostomy today. 0664 Patient off floor to OR with transport x2, RN and Respiratory. Daughter bedside.
--- NOTE | 2022-04-20 09:56 | WPDANESEPPF ---
Anes - Initial Pre Proc Eval Procedure: Operation Date: 04/18/22 12:30 Proposed Procedures p Percutaneous Endoscopic Gastrostomy - Ronal Mackey MD Operation Date: 04/20/22 09:30 Proposed Procedures p Tracheostomy - Yaakov Macias MD Date/Time: 04/20/22 09:56 Surgeon: Felix Macedo MD Pre Op Diagnosis: Acute on Chronic Resp Failure,CHF,Chronice Renal F Patient Data Age: 71 Gender: F Height: 1.73 m Weight: 110.2 kg Last Vital Signs Temp 37.3 C 04/20/22 08:00 Pulse 62 04/20/22 08:51 Resp 18 04/20/22 08:00 BP 153/50 H 04/20/22 08:00 Pulse Ox 100 04/20/22 08:51 O2 Del Method Mechanical Ventilation 04/20/22 08:51 O2 Flow Rate 3 04/01/22 14:35 FiO2 30 04/20/22 08:51 Allergies Allergy/AdvReac Type Severity Reaction Status Date / Time nickel Allergy Unknown hives and Verified 03/17/22 06:28 itchy rash nifedipine Allergy Unknown palpitation Verified 03/17/22 06:28 s Sulfa (Sulfonamide Allergy Unknown Urticaria Verified 03/17/22 06:28 Antibiotics) and hives Nphakys-KSA-IjM Reductase AdvReac Intermediate muscle Verified 03/17/22 06:28 Inhibitor cramps [[id number]-Bzv Reductase Inhibitor] diphenhydramine AdvReac Unknown restless Verified 04/09/22 07:22 legs CALCIUMCHANNEL AdvReac Unknown SEE COMMIT Uncoded 03/17/22 06:28 Home Medications Medication Instructions Recorded Confirmed Type cyanocobalamin (vitamin B-12) 2,000 mcg PO DAILY 03/19/19 03/31/22 History 2,000 mcg tablet,extended release (Vitamin B-12 ER) fluticasone propionate 50 2 spray intranasal DAILY 03/19/19 03/31/22 History mcg/actuation nasal spray,suspension ferrous sulfate 325 mg (65 mg 325 mg PO BID #180 tabs 11/22/20 03/31/22 Rx iron) tablet,delayed release insulin glargine 100 unit/mL (3 40 unit subcut HS 07/04/21 03/31/22 History mL) subcutaneous pen (Lantus Solostar U-100 Insulin) insulin syringe-needle U-100 1 mL #100 ea 10/14/21 03/31/22 Rx 31 gauge x 5/16 (BD Insulin Syringe Ultra-Fine) montelukast 10 mg tablet 10 mg PO QAM 11/22/21 03/31/22 History clopidogrel 75 mg tablet (Plavix) 75 mg PO DAILY #90 tabs 12/05/21 03/31/22 Rx albuterol sulfate 90 mcg/actuation 2 puff inhalation QID 02/11/22 03/31/22 History aerosol inhaler (Ventolin HFA) insulin aspart U-100 100 unit/mL 10 - 30 sliding scale dose subcut 02/11/22 03/31/22 History (3 mL) subcutaneous pen (Novolog TIDWM Flexpen U-100 Insulin aspart) verapamil 360 mg 24 hr 360 mg PO DAILY 02/11/22 03/31/22 History capsule,extended release blood sugar diagnostic (OneTouch #400 ea 02/20/22 03/31/22 Rx Verio test strips) fluticasone fur. 200 mcg-umeclid 1 puff inhalation DAILYRT #1 ea 02/28/22 03/31/22 Rx 62.5 mcg-vilant 25 mcg inhalat.powder (Trelegy Ellipta) gabapentin 300 mg capsule 300 mg PO BID #60 caps 02/28/22 03/31/22 Rx (Neurontin) pantoprazole 40 mg tablet,delayed 40 mg PO QAM #90 tabs 03/06/22 03/31/22 Rx release alprazolam 0.5 mg tablet 0.5 mg PO BID #60 tabs 03/09/22 03/31/22 Rx tramadol 50 mg tablet 50 mg PO Q12H PRN pain #30 tabs 03/09/22 03/31/22 Rx flash glucose scanning reader #1 ea 03/14/22 03/31/22 Rx (FreeStyle Nica 2 [place]bull) flash glucose sensor (FreeStyle #6 ea 03/14/22 03/31/22 Rx Nica 2 Sensor kit) glucagon 3 mg/actuation nasal spray 3 mg intranasal ONCE #2 ea 03/14/22 03/31/22 Rx insulin syringe-needle U-100 1 mL #10 ea 03/14/22 03/31/22 History 31 gauge x 15/64 (BD Veo Insulin Syringe Ultra-Fine) levothyroxine 200 mcg tablet 175 mcg PO DAILY 03/14/22 03/31/22 History (Synthroid) bumetanide 2 mg tablet 2 mg PO BID #60 tabs 03/29/22 03/31/22 Rx cefdinir 300 mg capsule 300 mg PO Q12H #10 caps 03/29/22 03/31/22 Rx ipratropium bromide 0.02 % 0.5 mg (2.5 mL) inhalation Q6HRT 03/29/22 03/31/22 Rx solution for inhalation #30 mL lanolin alcohols-mineral 1 applic topical DAILY #30 grams 03/29/22 03/31/22 Rx oil-w.ninfa
[2022-04-20] MEDS: ceFAZolin SODIUM 1 GM VIAL 2 GM IV PUSH (10:08)
[2022-04-20] MEDS: MONTELUKAST SODIUM 10 MG TABLET PO (10:57)
[2022-04-20] MEDS: FERROUS SULFATE 324 MG TABLET PO ×2 (10:57→16:29)
[2022-04-20] MEDS: CYANOCOBALAMIN 1,000 MCG TABLET 2000 MCG PO (10:58)
[2022-04-20] MEDS: AMIODARONE HCL 200 MG TABLET 400 MG FEED TUBE ×2 (10:59→22:34)
[2022-04-20 11:19] LABS: Glucose Point of Care 101 mg/dl (65-105)
--- NOTE | 2022-04-20 11:31 | PCFNICU ---
ICU Rounding Note: Pt current nutrition is Vital AR 1.2 at 65 ml/hr. Last recorded weight is 110.2 kg. Bowel Motility:FMS Labs Reviewed:Glu 181,BUN 48,Cr 3.9,Alb 3.2,Na 134 Meds Noted:Heparin,Ferrous Sulfate, Coumadin,Lantus, NovoLog, Protonix, Synthroid, B12 Skin: WNL Additional Notes: Patient had Trach placed today, PEG working well. Patient is tolerating tube feedings. Dialysis today. Following daily in ICU rounds. Monitoring labs, tolerance, stool pattern, meds, skin, plan of care every Sunday and Sunday.
--- NOTE | 2022-04-20 12:25 | WPDINTPN ---
Progress Note: A&P Assessment and Plan (1) Leukocytosis: Code(s): D72.829 - Elevated white blood cell count, unspecified Status: Acute Assessment and Plan: 04/11: Increasing WBC count with low-grade fevers, -04/11/2022 bilateral lower extremity venous Dopplers: Negative for DVT -04/11/2022 bilateral upper extremity venous Dopplers:Patent bilateral upper extremity veins. No evidence of deep venous thrombosis. 04/11/2022: Right upper quadrant ultrasound: Normal limited abdominal ultrasound 04/11/2022 , UA suggests a UTI, patient was pancultured, Street catheter removed 04/12/2022 CT scan of the chest abdomen and pelvis: Improving bilateral airspace consolidation which may represent resolving pneumonia and/or atelectasis.: Improving pleural effusions.: Improving small pericardial effusion.: There is mild thickening of the rectum with subtle perirectal infiltration, suspicious for proctitis, new since prior examination. 04/13 urine cultures growing Sagrario glabrata -patient was started on fluconazole 04/14 -although WBC remains elevated she has become afebrile is overnight. Continue to monitor -patient currently on fluconazole which will be continue, status post course of ertapenem -completed a 10 day course of vancomycin and a 5 day course of levofloxacin. Now both discontinued (2) Encephalopathy: Code(s): G93.40 - Encephalopathy, unspecified Status: Acute Assessment and Plan: Patient was unresponsive on 04/02 and had to be intubated Likely toxic metabolic encephalopathy Her blood glucose and ABG abnormal but would not explain her mental status CT head done and showed IMPRESSION: 1. 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 2. Mild nonspecific cerebral white matter disease, which likely represents chronic small vessel ischemic disease. Patient on so on some medication that would cause sedation including Neurontin tramadol and Xanax which have been discontinued -off all sedation since 04/08/2022 -04/09/2022 CT brain with no acute intracranial abnormalities, chronic bilateral lacunar infarctions, chronic age-related findings -ammonia level normal on 04/09 -patient neurology evaluation recommendation -04/10/2022 EEG did not show any, consistent with metabolic encephalopathy - 04/12 -patient had MRI done at [facility]. Report report shows chronic small-vessel disease - 04/13 -repeat EEG was done and report is pending -04/14 discussed with nephrology and Neurology, will continue to hold sedation. Slowly improving. Keep off sedation (3) Acute on chronic respiratory failure: Code(s): J96.20 - Acute and chronic respiratory failure, unspecified whether with hypoxia or hypercapnia Status: Acute Assessment and Plan: Multifactorial acute on chronic respiratory failure secondary to congestive heart failure, restrictive lung disease from obesity hypoventilation, history of asthma, volume overload from kidney disease, large pleural effusions 04/02 Patient was on BiPAP but was intubated due to poor mental status Vent settings and ABG reviewed 04/03: Chest CT shows There are airspace opacities bilaterally with a dependent predominance, consistent with atelectasis. There are moderate-sized pleural effusions. Patient is getting hemodialysis today to remove fluid Patient received hemodialysis on 04/02, 06/03, 04/04, 04/05, 04/06, 04/07 -04/04/2022: Left-sided thoracenteses with 1000 mL of fluid removal which was done by IR -04/05/2022: Right thoracentesis with 950 ml of fluid removal by IR CXR this morning shows: ?Mild opacities in the bilateral mid and lower lung zones likely combination of mild pulmonary edema and discoid atelectasis although differential includes pneumonia.. Decreased tiny bilateral pleural effusions Continue bronchodilators -off sedation since 04/08, 8:00 a.m -patient tolerated PSV 12/12 yesterday and is on 04/13 again today -not a candidate for extubation at [facility]
[2022-04-20 13:44] LABS: Glucose Point of Care 112 mg/dl (65-105)
--- NOTE | 2022-04-20 14:57 | PM.PNNEP ---
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 (3) Acute on chronic respiratory failure: Code(s): J96.20 - Acute and chronic respiratory failure, unspecified whether with hypoxia or hypercapnia Status: Acute Assessment and Plan: multifactorial: volume overload asthma/COPD(?) RAINA/OHS anemia Echo with good LV EF, grade 2 diastolic dysfunction, mild/moderate MR fluid status optimized with ultrafiltration with dialysis s/p G-tube placement and tracheostomy suspect with need LTACH (4) Hyponatremia: Code(s): E87.1 - Hypo-osmolality and hyponatremia Status: Acute Assessment and Plan: doing fairly well most likely dilutional because the patient is not making much urine s/p 3% saline (on 04/16/22) with improvement in sodium dialysis should help to continue to further correct/stabilize (5) Hypertension: Code(s): I10 - Essential (primary) hypertension Status: Chronic Assessment and Plan: reasonable control at this time on verapamil and metoprolol (6) Anemia: Code(s): D64.9 - Anemia, unspecified Status: Acute Assessment and Plan: likely due to MARINA, CKD and acute illness Epogen with HD follow trend of H/H (7) Encephalopathy: Code(s): G93.40 - Encephalopathy, unspecified Status: Acute Assessment and Plan: this seems to slowly improving evaluation/testing to date noted: off sedatives CT brain with nothing acute ammonia level okay blood gases look okay other electrolytes look okay MRI negative as well continue supportive therapy (8) Type 2 diabetes mellitus with hyperglycemia: Code(s): E11.65 - Type 2 diabetes mellitus with hyperglycemia Status: Chronic Assessment and Plan: accuchecks and 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 Subjective Date/time seen: 04/20/22 14:57 S/P tracheostomy earlier today as well as short dialysis treatment -- tolerated both procedures reasonably well; otherwise, no real significant change; remains off sedation and does open eyes with some tracking; follow some simple commands; no acute distress. Exam Narrative: General: WD/WN female in NAD; s/p trach Heart: normal S1 and S2; no rub Lungs: coarse breath sounds throughout Abdomen: soft, nontender, nondistended, positive bowel sounds Extremities: no cyanosis or clubbing; no edema Skin: no nodules Objective Data Vital Signs Vital Signs: Vital Signs Temp Pulse Resp BP Pulse Ox O2 Del Method FiO2 04/20/22 14:10 98.8 F 70 17 122/46 L 100 04/20/22 14:07 68 125/51 L 04/20/22 14:38 70 100 Mechanical Ventilation 30 04/20/22 14:00 67 128/50 L 04/20/22 13:45 67 133/52 L 04/20/22 13:51 66 04/20/22 13:30 66 130/50 L 04/20/22 13:15 65 136/53 L 04/20/22 13:00 64 129/54 L 04/20/22 12:45 64 133/53 L 04/20/22 12:30 67 131/49 L 04/20/22 12:15 63 129/54 L 04/20/22 12:00 30 04/20/22 12:00 66 04/20/22 12:00 Mechanical Ventilation 04/20/22 12:00 67 129/51 L 04/20/22 11:45 66 142/51 H 04/20/22 11:37 67 148/61 H 04/20/22 11:30 98.3 F 67 20 134/51 L 100 04/20/22 11:32 30 04/20/22 11:01 67 100 Mechanical Ventilation 30 04/20/22 11:08 68
--- NOTE | 2022-04-20 14:57 | P.PNNP_ITS ---
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 (3) Acute on chronic respiratory failure: Code(s): J96.20 - Acute and chronic respiratory failure, unspecified whether with hypoxia or hypercapnia Status: Acute Assessment and Plan: * multifactorial: * volume overload * asthma/COPD(?) * RAINA/OHS * anemia * Echo with good LV EF, grade 2 diastolic dysfunction, mild/moderate MR * fluid status optimized with ultrafiltration with dialysis * s/p G-tube placement and tracheostomy * suspect with need LTACH (4) Hyponatremia: Code(s): E87.1 - Hypo-osmolality and hyponatremia Status: Acute Assessment and Plan: * doing fairly well * most likely dilutional because the patient is not making much urine * s/p 3% saline (on 04/16/22) with improvement in sodium * dialysis should help to continue to further correct/stabilize (5) Hypertension: Code(s): I10 - Essential (primary) hypertension Status: Chronic Assessment and Plan: * reasonable control at this time * on verapamil and metoprolol (6) Anemia: Code(s): D64.9 - Anemia, unspecified Status: Acute Assessment and Plan: * likely due to MARINA, CKD and acute illness * Epogen with HD * follow trend of H/H (7) Encephalopathy: Code(s): G93.40 - Encephalopathy, unspecified Status: Acute Assessment and Plan: * this seems to slowly improving * evaluation/testing to date noted: * off sedatives * CT brain with nothing acute * ammonia level okay * blood gases look okay * other electrolytes look okay * MRI negative as well * continue supportive therapy (8) Type 2 diabetes mellitus with hyperglycemia: Code(s): E11.65 - Type 2 diabetes mellitus with hyperglycemia Status: Chronic Assessment and Plan: * accuchecks and 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 Subjective Date/time seen: 04/20/22 14:57 S/P tracheostomy earlier today as well as short dialysis treatment -- tolerated both procedures reasonably well; otherwise, no real significant change; remains off sedation and does open eyes with some tracking; follow some simple commands; no acute distress. Exam Narrative: General: WD/WN female in NAD; s/p trach Heart: normal S1 and S2; no rub Lungs: coarse breath sounds throughout Abdomen: soft, nontender, nondistended, positive bowel sounds Extremities: no cyanosis or clubbing; no edema Skin: no nodules Objective Data Vital Signs Vital Signs: Vital Signs Temp Pulse Resp BP Pulse Ox O2 Del Method FiO2 04/20/22 14:10 98.8 F 70 17 122/46 L 100 04/20/22 14:07 68 125/51 L 04/20/22 14:38 70 100 Mechanical Ventilation 30 04/20/22 14:00 67 128/
[2022-04-20 16:26] LABS: Glucose Point of Care 145 mg/dl (65-105)
[2022-04-20] MEDS: INSULIN GLARGINE (*BKC) 100 UNITS/ML 20 UNITS SUB-Q (16:28)
--- NOTE | 2022-04-20 20:21 | PM.PNCARD ---
Progress Note: A&P Assessment and Plan (1) Persistent atrial fibrillation: Code(s): I48.19 - Other persistent atrial fibrillation Status: Acute Assessment and Plan: Previously paroxysmal AFib, on this admission persistent AFib, status post cardioversion 04/17/2022. Anticoagulated with heparin which was held for tracheostomy change to Eliquis/warfarin tomorrow Maintaining sinus rhythm on metoprolol and amiodarone. Titrate amiodarone down to 200 mg daily over the next 2 weeks, as ordered. (2) Chronic diastolic (congestive) heart failure: Code(s): I50.32 - Chronic diastolic (congestive) heart failure Status: Acute Assessment and Plan: EF 60-65%, diastolic dysfunction on echo. Volume overloaded due to chronic kidney disease Status post bilateral thoracentesis Blood pressure reasonably controlled. Volume management with dialysis (3) Acute respiratory failure: Code(s): J96.00 - Acute respiratory failure, unspecified whether with hypoxia or hypercapnia Status: Acute Assessment and Plan: s/p tracheostomy Management per hospitalist (4) [id number] kidney injury: Code(s): N17.9 - Acute kidney failure, unspecified; N18.9 - Chronic kidney disease, unspecified Status: Acute Assessment and Plan: On dialysis. Plan Cardiology will sign off. Please call if we can be of further assistance. Subjective Date/time seen: Follow-up for atrial fibrillation.? Admitted with respiratory failure, renal failure, volume overload 04/01/2022.? Intubated, s/p trach 04/20/2022.? Started on hemodialysis. ? She was cardioverted on 04/17/[address] Gil[place].? Also pleural effusion status post thoracenteses, DVT of the left lower extremity, EF 60-65%. 04/18/22? 17:24 at bedside, says she doesn't seem to recognize him.? Had PEG today.? Pt remains on a ventilator, FiO2 30%.? Amiodarone changed from IV to feeding tube. 04/20/22 20:21 had tracheostomy today. Encephalopathy seems to be improving. Remains in sinus rhythm, heart rate in the 70s. Chest x-ray still shows pulmonary edema versus pneumonia. Review of Systems Review of Systems: ROS unobtainable: Yes unobtainable due to endotracheal tube, unobtainable due to medical condition and unobtainable due to mental status Exam Const: Other: Sedated obese elderly lady on ventilator support via tracheostomy HENMT: Mouth: Yes moist mucous membranes Eyes: Sclera: sclerae normal Neck: Neck: supple Resp: Auscultation: clear to auscultation bilaterally Other: breath sounds relatively clear bilaterally anterior auscultation Cardio: Rate: regular rate Rhythm: regular rhythm Heart sounds: no murmurs Other: distant heart sounds GI: Auscultation: normal bowel sounds Other: Feeding tube Skin: General skin exam: normal color Neuro: Other: Patient regard examiner. Once followed a simple command. Once appeared to nod ?yes? to a question. Otherwise did not follow other commands. Extrem: General: normal to inspection and no edema Psych: Other: Encephalopathic Objective Data Vital Signs Vital Signs: Vital Signs - 24 hr 04/19/22 21:22 04/19/22 21:22 04/19/22 22:00 Temperature Pulse Rate 69 68 63 Respiratory Rate 12 Blood Pressure 144/54 H Pulse Oximetry 100 Oxygen Delivery Fraction of Inspired Oxygen 04/19/22 22:10 04/20/22 00:00 04/20/22 00:00 Temperature Pulse Rate 67 70 Respiratory Rate Blood Pressure Pulse Oximetry 100 100 Oxygen Delivery Mechanical Ventilation Mechanical Ventilation Fraction of Inspired Oxygen 30 30 30 04/20/22 00:00 04/20/22 00:00 04/20/22 02:00 Temperature 99 F Pulse Rate 62 62 61 Respiratory Rate 16 18 Blood Pressure 154/58 H 154/58 H Pulse Oximetry 100 100 Oxygen Delivery Fraction of Inspired Oxygen 04/20/22 02:02 04/20/22 04:00 04/20/22 04:00 Temperature Pulse Rate 66
[2022-04-20] MEDS: METOPROLOL TARTRATE 25 MG TABLET FEED TUBE (22:33)
[2022-04-20 22:41] LABS: Glucose Point of Care 207 mg/dl (65-105)
[2022-04-21] VITALS (48 sets, daily range): BP systolic 118–169; BP diastolic 48–72; PULSE 64–80; RESP 16–29; TEMP 36.9–37.7; O2SAT 95–100
[2022-04-21] MEDS: INSULIN ASPART (*BKC) 100 UNITS/ML SUB-Q ×5 (00:47→20:36)
[2022-04-21 00:53] LABS: Glucose Point of Care 228 mg/dl (65-105)
[2022-04-21 03:54] LABS: Hematocrit 27.6 % (37.0-47.0); Mean Corpuscular Hemoglobin 22.4 pg (26-34); Mean Corpuscular Volume 77.3 fl (80-100); Mean Platelet Volume 9.7 fl (7.4-10.4); Platelet Count Result 408 k/mm3 (150-375); Red Blood Count 3.57 M/mm3 (4.2-5.4); Red Cell Distribution Width 18.5 % (11.5-14.5); White Blood Count 13.8 K/mm3 (4.5-10.0)
[2022-04-21 04:03] LABS: Alanine Aminotransferase 21 U/L (6-35); Albumin Level 3.1 g/dL (3.5-5.1); Alkaline Phosphatase 106 U/L (38-126); Anion Gap 10 mmol/L (8-16); Aspartate Amino Transferase 29 U/L (14-36); Bilirubin,Total 0.3 mg/dL (0.2-1.3); Blood Urea Nitrogen 43 mg/dL (7-17); Calcium 8.1 mg/dL (8.4-10.2); Carbon Dioxide 24 mmol/L (22-30); Chloride 101 mmol/L (98-107); Estimated CRCL calculation 17 ml/min; Estimated Glomerular Filt Rate 12; Glucose 238 mg/dL (65-110); Phosphorus 4.9 mg/dL (2.5-4.5); Potassium 4.6 mmol/L (3.4-5.0); Sodium 135 mmol/L (137-145)
[2022-04-21 04:34] LABS: Band Neutrophils Percent 3 % (0-6); Eosinophils Absolute Manual 0.13 K/mm3 (0.02-0.5); Eosinophils Percent Manual 1 % (0-4); Lymphocytes Absolute Manual 1.38 K/mm3 (1.1-4.5); Monocytes Absolute Manual 0.69 K/mm3 (0.1-0.90); Monocytes Percent Manual 5 % (3-9); Neutrophils Absolute Manual 11.59 K/mm3 (1.7-7.2); Neutrophils Percent Manual 81 % (46-73); Total Cells Counted 100
[2022-04-21 04:35] LABS: Anisocytosis 1+ (NORMAL); Hypochromasia 2+ (NORMAL); Platelet Estimate Increased (Adequate); Schistocytes None Seen (NORMAL); Spherocytes 1+ (NORMAL)
[2022-04-21 04:36] LABS: Atypical Lymphocytes Present; Burr Cells 1+ (NORMAL); Macrocytosis 1+ (NORMAL); Microcytosis 2+ (NORMAL)
[2022-04-21 06:06] LABS: Alveolar/Arterial O2 Gradient 57.8 mmHg; Base Excess ABG 1.1 mEq/l (+/-2.0); Carboxyhemoglobin 0.1 % THb (0-2.0); Fractional Inspired Oxygen 30 %; HCO3 ABG 25.8 mEq/l (22.0-26.0); Methemoglobin ABG 0.2 %THb (0-1.5); Oxygen Content ABG 12.6 %vol (16.0-22.0); Oxyhemoglobin 96.9 % THb (90.0-100.0); PCO2 ABG 41.3 mmHg (35.0-45.0); PO2 ABG 107.6 mmHg (80.0-100.0); PO2 FiO2 Ratio Arterial Blood 3.59 %; Reduced Hemoglobin 2.8 %THb (0-5.0); Total Hemoglobin 9.1 g/dL (12.0-18.0); pH ABG 7.414 (7.350-7.450)
[2022-04-21 06:07] LABS: Arterial Blood Gas Ventilator rate 16 /MIN; Device VENTILATOR; Modified Allen's Test Pass; Site Drawn RIGHT RADIAL
[2022-04-21 06:08] LABS: Arterial Blood Gas PEEP 5 cmH2O; Arterial Blood Gas Tidal Volume 380 ml; Arterial Blood Gas Vent Mode CMV
[2022-04-21] MEDS: LEVOTHYROXINE SODIUM 75 MCG TABLET PO (06:45)
[2022-04-21] MEDS: LEVOTHYROXINE SODIUM 100 MCG TABLET PO (06:45)
[2022-04-21] MEDS: PANTOPRAZOLE SODIUM IV 40 MG VIAL IV PUSH (08:15)
[2022-04-21] MEDS: TRIAMCINOLONE ACET 0.1% CREAM 15 GM TUBE 1 APPLIC TOPICAL ×2 (08:15→20:34)
[2022-04-21] MEDS: FERROUS SULFATE 324 MG TABLET PO ×2 (08:16→18:03)
[2022-04-21] MEDS: MONTELUKAST SODIUM 10 MG TABLET PO (08:16)
[2022-04-21] MEDS: AMIODARONE HCL 200 MG TABLET 400 MG FEED TUBE ×2 (08:16→20:29)
[2022-04-21] MEDS: CYANOCOBALAMIN 1,000 MCG TABLET 2000 MCG PO (08:16)
[2022-04-21] MEDS: MINERAL OIL/WHITE PETROLATUM OINTMENT 1 APPLIC EACH EYE ×2 (08:17→20:34)
[2022-04-21] MEDS: FLUCONAZOLE 200 MG/NACL 100 ML 200 MG/100 ML BAG 100 MG IVPB (08:20)
[2022-04-21] MEDS: INSULIN GLARGINE (*BKC) 100 UNITS/ML 20 UNITS SUB-Q ×2 (08:29→20:39)
[2022-04-21 08:53] LABS: Glucose Point of Care 251 mg/dl (65-105)
--- NOTE | 2022-04-21 09:57 | WPDINTPN ---
Progress Note: A&P Assessment and Plan (1) Leukocytosis: Code(s): D72.829 - Elevated white blood cell count, unspecified Status: Acute Assessment and Plan: 04/11: Increasing WBC count with low-grade fevers, -04/11/2022 bilateral lower extremity venous Dopplers: Negative for DVT -04/11/2022 bilateral upper extremity venous Dopplers:Patent bilateral upper extremity veins. No evidence of deep venous thrombosis. 04/11/2022: Right upper quadrant ultrasound: Normal limited abdominal ultrasound 04/11/2022 , UA suggests a UTI, patient was pancultured, Street catheter removed 04/12/2022 CT scan of the chest abdomen and pelvis: Improving bilateral airspace consolidation which may represent resolving pneumonia and/or atelectasis.: Improving pleural effusions.: Improving small pericardial effusion.: There is mild thickening of the rectum with subtle perirectal infiltration, suspicious for proctitis, new since prior examination. 04/13 urine cultures growing Sagrario glabrata -patient was started on fluconazole 04/14 -although WBC remains elevated she has become afebrile is overnight. Continue to monitor -patient currently on IV fluconazole which will be continue, will switch to p.o. fluconazole for additional 5 days (completed 14 day course) -status post course of ertapenem -completed a 10 day course of vancomycin and a 5 day course of levofloxacin. Now both discontinued (2) Encephalopathy: Code(s): G93.40 - Encephalopathy, unspecified Status: Acute Assessment and Plan: Patient was unresponsive on 04/02 and had to be intubated Likely toxic metabolic encephalopathy Her blood glucose and ABG abnormal but would not explain her mental status CT head done and showed IMPRESSION: 1. 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 2. Mild nonspecific cerebral white matter disease, which likely represents chronic small vessel ischemic disease. Patient on so on some medication that would cause sedation including Neurontin tramadol and Xanax which have been discontinued -off all sedation since 04/08/2022 -04/09/2022 CT brain with no acute intracranial abnormalities, chronic bilateral lacunar infarctions, chronic age-related findings -ammonia level normal on 04/09 -patient neurology evaluation recommendation -04/10/2022 EEG did not show any, consistent with metabolic encephalopathy - 04/12 -patient had MRI done at [facility]. Report report shows chronic small-vessel disease - 04/13 -repeat EEG was done and report is pending -04/14 discussed with nephrology and Neurology, will continue to hold sedation. Slowly improving. Keep off sedation, improve sleep hygiene, keep awake during the day with bright lights on in the room, window blinds should be up, PT/OT (3) Acute on chronic respiratory failure: Code(s): J96.20 - Acute and chronic respiratory failure, unspecified whether with hypoxia or hypercapnia Status: Acute Assessment and Plan: Multifactorial acute on chronic respiratory failure secondary to congestive heart failure, restrictive lung disease from obesity hypoventilation, history of asthma, volume overload from kidney disease, large pleural effusions 04/02 Patient was on BiPAP but was intubated due to poor mental status Vent settings and ABG reviewed 04/03: Chest CT shows There are airspace opacities bilaterally with a dependent predominance, consistent with atelectasis. There are moderate-sized pleural effusions. Patient is getting hemodialysis today to remove fluid Patient received hemodialysis on 04/02, 06/03, 04/04, 04/05, 04/06, 04/07 -04/04/2022: Left-sided thoracenteses with 1000 mL of fluid removal which was done by IR -04/05/2022: Right thoracentesis with 950 ml of fluid removal by IR CXR this morning shows: ?Mild opacities in the bilateral mid and lower lung zones likely combination of mild pulmonary edema and discoid atelectasis although differential includes pneumonia.. Decreased
[2022-04-21] MEDS: METOPROLOL TARTRATE 25 MG TABLET FEED TUBE ×2 (10:00→22:17)
--- NOTE | 2022-04-21 10:12 | WPDANESPN ---
Anes - Prog Note Post-Op Date/Time: 04/21/22 10:12 Cardiovascular status: normal Respiratory status: other (trach) Airway patency: other Mental status: baseline (family at bedside pt awake, aware and follows commands) Post-Op hydration status: normal Vital Signs: Last Vital Signs Temp 37.6 C 04/21/22 08:30 Pulse 67 04/21/22 08:30 Resp 27 H 04/21/22 08:30 BP 138/53 L 04/21/22 06:00 Pulse Ox 100 04/21/22 08:30 O2 Del Method Mechanical Ventilation 04/21/22 08:18 O2 Flow Rate 3 04/01/22 14:35 FiO2 30 04/21/22 08:18 Pain Score (VAS): 0/10 I/O: Intake & Output 04/20/22 04/21/22 04/21/22 23:59 07:59 15:59 Intake Total 496 660 Output Total 100 50 Balance 396 610 Laboratory Tests 04/21/22 03:27 04/21/22 03:27 04/20/22 04/20/22 04/20/22 11:13 13:42 16:24 WBC RBC Hgb Hct MCV MCH MCHC RDW Plt Count MPV Immature Gran % (Auto) Neut % (Auto) Lymph % (Auto) [place] % (Auto) Eos % (Auto) Baso % (Auto) Lymph # (Auto) [place] # (Auto) Eos # (Auto) Baso # (Auto) Abs Immat Gran (auto) Absolute Neuts (auto) Absolute Nucleated RBC Total Counted Neutrophils % (Manual) Band Neutrophils % Lymphocytes % (Manual) Monocytes % (Manual) Eosinophils % (Manual) Nucleated RBC % Abs Neuts (Manual) Abs Lymphs (Manual) Abs Monocytes (Manual) Absolute Eos (Manual) Atypical Lymphocytes Platelet Estimate Hypochromasia Anisocytosis Microcytosis Macrocytosis Spherocytes [place] Cells Schistocytes Puncture Site ABG pH ABG pCO2 ABG pO2 ABG PO2/FiO2 Ratio ABG HCO3 ABG O2 Saturation ABG O2 Content ABG Base Excess A-a Gradient Oxyhemoglobin Carboxyhemoglobin Methemoglobin Reduced Hemoglobin Total Hemoglobin O2 Delivery Device O2 Liters/Min Minute Volume Vent Rate Vent Mode FiO2 Tidal Volume PEEP Peak Inspir Pressure Pressure Support Sodium Potassium Chloride Carbon Dioxide Anion Gap BUN Creatinine Estim Creat Clear Calc Estimated GFR Glucose POC Capillary Glucose 101 112 H 145 H Calcium Phosphorus Magnesium Total Bilirubin AST ALT Alkaline Phosphatase Total Protein Albumin 04/20/22 04/21/22 04/21/22 22:29 00:46 03:27 WBC 13.8 H RBC 3.57 L Hgb 8.0 L Hct 27.6 L MCV 77.3 L MCH 22.4 L MCHC 29.0 L RDW 18.5 H Plt Count 408 H MPV 9.7 Immature Gran % (Auto) [place] Neut % (Auto) [place] Lymph % (Auto) [place] % (Auto) [place] Eos % (Auto) [place] Baso % (Auto) [place] Lymph # (Auto) [place] # (Auto) [place] Eos # (Auto) [place] Baso # (Auto) [place] Abs Immat Gran (auto) [place] Absolute Neuts (auto) [place] Absolute Nucleated RBC [place] Total Counted 100 Neutrophils % (Manual) 81 H Band Neutrophils % 3 Lymphocytes % (Manual) 10.0 L Monocytes % (Manual) 5 Eosinophils % (Manual) 1 Nucleated RBC % [place] Abs Neuts (Manual) 11.59 H Abs Lymphs (Manual) 1.38 Abs Monocytes (Manual) 0.69 Absolute Eos (Manual) 0.13 Atypical Lymphocytes Present Platelet Estimate Increased Hypochromasia 2+ Anisocytosis 1+ Microcytosis 2+ Macrocytosis 1+ Spherocytes 1+ [place] Cells 1+ Schistocytes None seen Puncture Site ABG pH ABG pCO2 ABG pO2 ABG PO2/FiO2 Ratio ABG HCO3 ABG O2 Saturation ABG O2 Content ABG Base Excess A-a Gradient Oxyhemoglobin Carboxyhemoglobin Methemoglobin Reduced Hemoglobin Total Hemoglobin O2 Delivery Device O2 Liters/Min Minute Volume Vent Rate Vent Mode FiO2 Tidal Volume PEEP Peak Inspir Pressure Pressure Support Sodium Potassium Chloride Carbon Dioxide Anion Gap BUN Creatinine Estim Creat Clear Calc Estim
--- NOTE | 2022-04-21 11:22 | PCNFU ---
Nutrition Follow-Up Complete: Inadequate oral intake related to NPO, mechanical ventilation as evidenced by need for full tube feeding goal: Meet estimated protein energy needs Patient is meeting goal. No new goal. Pt current nutrition is Vital AF 1.2 at 65 ml/hr. Last recorded weight is 109.4 kg. Bowel Motility: FMS Labs Reviewed:Glu 238, GFR 12, BUN 43, Cr 3.6,Na 135 Meds Noted:Heparin,Ferrous Sulfate, Coumadin,Lantus, NovoLog, Protonix, Synthroid, B12 Skin: WNL Additional Notes: Patient current with Trach/PEG. Tolerating tube feedings of Vital AF 1.2 at 65 ml/hr providing 1716 kcals/107 gms protein/1160 ml water. Flush 30 ml q 4 hours. Tube feeding meeting 100% kcals needs at 15 kcal per kg. and 100% protein needs. Plans for LTAC today. Monitoring labs, tolerance, stool pattern, meds, skin, plan of care every Sunday and Sunday. Follow daily in ICU rounds
--- NOTE | 2022-04-21 14:30 | P.PNNP_ITS ---
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 (3) Acute on chronic respiratory failure: Code(s): J96.20 - Acute and chronic respiratory failure, unspecified whether with hypoxia or hypercapnia Status: Acute Assessment and Plan: * multifactorial: * volume overload * asthma/COPD(?) * RAINA/OHS * anemia * Echo with good LV EF, grade 2 diastolic dysfunction, mild/moderate MR * fluid status optimized with ultrafiltration with dialysis * s/p G-tube placement and tracheostomy * likely to discharge to LTACH (4) Hyponatremia: Code(s): E87.1 - Hypo-osmolality and hyponatremia Status: Acute Assessment and Plan: * doing fairly well * most likely dilutional because the patient is not making much urine * s/p 3% saline (on 04/16/22) with improvement in sodium * dialysis should help to continue to further correct/stabilize (5) Hypertension: Code(s): I10 - Essential (primary) hypertension Status: Chronic Assessment and Plan: * reasonable control at this time * on verapamil and metoprolol (6) Anemia: Code(s): D64.9 - Anemia, unspecified Status: Acute Assessment and Plan: * likely due to MARINA, CKD and acute illness * Epogen with HD * follow trend of H/H (7) Encephalopathy: Code(s): G93.40 - Encephalopathy, unspecified Status: Acute Assessment and Plan: * this seems to slowly improving * evaluation/testing to date noted: * off sedatives * CT brain with nothing acute * ammonia level okay * blood gases look okay * other electrolytes look okay * MRI negative as well * continue supportive therapy (8) Type 2 diabetes mellitus with hyperglycemia: Code(s): E11.65 - Type 2 diabetes mellitus with hyperglycemia Status: Chronic Assessment and Plan: * accuchecks and SSI per hospitalist/doorperson * glycemic control Will continue to follow. Subjective Date/time seen: 04/21/22 14:30 S/P tracheostomy and dialysis yesterday without any issues or problems; remains unchanged -- tracheostomy in place and remains on ventilatory support; remains hemodynamically stable without the need for pressors; mentation seems to be doing a bit better; no other issues/events overnight. Exam Narrative: General: WD/WN female in NAD; s/p trach Heart: normal S1 and S2; no rub Lungs: coarse breath sounds throughout Abdomen: soft, nontender, nondistended, positive bowel sounds Extremities: no cyanosis or clubbing; no edema Skin: warm and dry Objective Data Vital Signs Vital Signs: Vital Signs Temp Pulse Resp BP Pulse Ox O2 Del Method FiO2 04/21/22 14:14 75 100 Mechanical Ventilation 30 04/21/22 12:30 67 27 H 100 04/21/22 12:00 30
--- NOTE | 2022-04-21 14:30 | PM.PNNEP ---
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 (3) Acute on chronic respiratory failure: Code(s): J96.20 - Acute and chronic respiratory failure, unspecified whether with hypoxia or hypercapnia Status: Acute Assessment and Plan: multifactorial: volume overload asthma/COPD(?) RAINA/OHS anemia Echo with good LV EF, grade 2 diastolic dysfunction, mild/moderate MR fluid status optimized with ultrafiltration with dialysis s/p G-tube placement and tracheostomy likely to discharge to LTACH (4) Hyponatremia: Code(s): E87.1 - Hypo-osmolality and hyponatremia Status: Acute Assessment and Plan: doing fairly well most likely dilutional because the patient is not making much urine s/p 3% saline (on 04/16/22) with improvement in sodium dialysis should help to continue to further correct/stabilize (5) Hypertension: Code(s): I10 - Essential (primary) hypertension Status: Chronic Assessment and Plan: reasonable control at this time on verapamil and metoprolol (6) Anemia: Code(s): D64.9 - Anemia, unspecified Status: Acute Assessment and Plan: likely due to MARINA, CKD and acute illness Epogen with HD follow trend of H/H (7) Encephalopathy: Code(s): G93.40 - Encephalopathy, unspecified Status: Acute Assessment and Plan: this seems to slowly improving evaluation/testing to date noted: off sedatives CT brain with nothing acute ammonia level okay blood gases look okay other electrolytes look okay MRI negative as well continue supportive therapy (8) Type 2 diabetes mellitus with hyperglycemia: Code(s): E11.65 - Type 2 diabetes mellitus with hyperglycemia Status: Chronic Assessment and Plan: 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 Subjective Date/time seen: 04/21/22 14:30 S/P tracheostomy and dialysis yesterday without any issues or problems; remains unchanged -- tracheostomy in place and remains on ventilatory support; remains hemodynamically stable without the need for pressors; mentation seems to be doing a bit better; no other issues/events overnight. Exam Narrative: General: WD/WN female in NAD; s/p trach Heart: normal S1 and S2; no rub Lungs: coarse breath sounds throughout Abdomen: soft, nontender, nondistended, positive bowel sounds Extremities: no cyanosis or clubbing; no edema Skin: warm and dry Objective Data Vital Signs Vital Signs: Vital Signs Temp Pulse Resp BP Pulse Ox O2 Del Method FiO2 04/21/22 14:14 75 100 Mechanical Ventilation 30 04/21/22 12:30 67 27 H 100 04/21/22 12:00 30 04/21/22 12:00 69 25 H 100 Mechanical Ventilation 30 04/21/22 10:00 80 04/21/22 10:04 68 21 H 100 04/21/22 10:00 73 04/21/22 10:16 68 100 Mechanical Ventilation 30 04/21/22 08:30 99.6 F 67 27 H 100 04/21/22 07:22 67 26 H 100 04/21/22 06:12 71 23 H 100 04/21/22 05:31 73 16 95 04/21/22 01:33 70 25 H 100 04/21/22 01:31 72 25 H 127/48 L 99 04/21/22 01:15 72 22 H 100 04/21/22 01:03 80 20 100 04/21/22 00:03 65 17 99 04/20/22 23:33 71 23 H 99 04/20/22 23:15 65 20 100 04/20/22 23:00 69 14 99 04/20/22 22:53 75
--- NOTE | 2022-04-21 15:43 | PM.DS ---
DS: Admitting Diagnosis Discharge Date 04/22/2022 Admitting Diagnosis Volume overload DS: Discharge Diagnosis Discharge Diagnosis (1) Leukocytosis: Code(s): D72.829 - Elevated white blood cell count, unspecified Status: Acute Assessment and Plan: 04/11: Increasing WBC count with low-grade fevers, -04/11/2022 bilateral lower extremity venous Dopplers: Negative for DVT -04/11/2022 bilateral upper extremity venous Dopplers:Patent bilateral upper extremity veins. No evidence of deep venous thrombosis. 04/11/2022: Right upper quadrant ultrasound: Normal limited abdominal ultrasound 04/11/2022 , UA suggests a UTI, patient was pancultured, Street catheter removed 04/12/2022 CT scan of the chest abdomen and pelvis: Improving bilateral airspace consolidation which may represent resolving pneumonia and/or atelectasis.: Improving pleural effusions.: Improving small pericardial effusion.: There is mild thickening of the rectum with subtle perirectal infiltration, suspicious for proctitis, new since prior examination. 04/13 urine cultures growing Sagrario glabrata -patient was started on fluconazole, switch to p.o. fluconazole on 04/21 for additional 5 days to complete 14 day course. -status post course of ertapenem -completed a 10 day course of vancomycin and a 5 day course of levofloxacin. Now both discontinued (2) Encephalopathy: Code(s): G93.40 - Encephalopathy, unspecified Status: Acute Assessment and Plan: Patient was unresponsive on 04/02 and had to be intubated Likely toxic metabolic encephalopathy Her blood glucose and ABG abnormal but would not explain her mental status CT head done and showed IMPRESSION: 1. 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 2. Mild nonspecific cerebral white matter disease, which likely represents chronic small vessel ischemic disease. Patient on so on some medication that would cause sedation including Neurontin tramadol and Xanax which have been discontinued -off all sedation since 04/08/2022 -04/09/2022 CT brain with no acute intracranial abnormalities, chronic bilateral lacunar infarctions, chronic age-related findings -ammonia level normal on 04/09 -patient neurology evaluation recommendation -04/10/2022 EEG did not show any, consistent with metabolic encephalopathy - 04/12 -patient had MRI done at [facility]. Report report shows chronic small-vessel disease - 04/13 -repeat EEG was done and report is pending -04/14 discussed with nephrology and Neurology, will continue to hold sedation. Has been improving, patient has been off sedation for days. Keep off sedation, improve sleep hygiene, keep awake during the day with bright lights on in the room, window blinds should be up, PT/OT, up in chair with assistance (3) Acute on chronic respiratory failure: Code(s): J96.20 - Acute and chronic respiratory failure, unspecified whether with hypoxia or hypercapnia Status: Acute Assessment and Plan: Multifactorial acute on chronic respiratory failure secondary to congestive heart failure, restrictive lung disease from obesity hypoventilation, history of asthma, volume overload from kidney disease, large pleural effusions 04/02 Patient was on BiPAP but was intubated due to poor mental status Vent settings and ABG reviewed 04/03: Chest CT shows There are airspace opacities bilaterally with a dependent predominance, consistent with atelectasis. There are moderate-sized pleural effusions. Patient is getting hemodialysis today to remove fluid Patient received hemodialysis on 04/02, 06/03, 04/04, 04/05, 04/06, 04/07 -04/04/2022: Left-sided thoracenteses with 1000 mL of fluid removal which was done by IR -04/05/2022: Right thoracentesis with 950 ml of fluid removal by IR CXR this morning shows: ?Mild opacities in the bilateral mid and lower lung zones likely combination of mild pulmonary edema and discoid atelectasis although differential includes pneumo
[2022-04-21 17:09] LABS: Glucose Point of Care 139 mg/dl (65-105)
[2022-04-21 17:09] LABS: Glucose Point of Care 207 mg/dl (65-105)
[2022-04-21] MEDS: APIXABAN 2.5 MG TABLET PO (20:29)
[2022-04-21 21:49] LABS: Glucose Point of Care 250 mg/dl (65-105)
[2022-04-22] VITALS (59 sets, daily range): BP systolic 94–162; BP diastolic 38–113; PULSE 59–114; RESP 16–30; TEMP 36–37.1; O2SAT 98–100
[2022-04-22 00:24] LABS: Glucose Point of Care 224 mg/dl (65-105)
[2022-04-22] MEDS: INSULIN ASPART (*BKC) 100 UNITS/ML SUB-Q ×3 (00:24→09:07)
--- NOTE | 2022-04-22 03:51 | PC.NURSE ---
0200 multiple calls to [facility] (at [facility]) to make aware of current ambulance ETA. ALL calls are going to voicemail. Called [facility] cupola operator insulation and she is having same issue. She sent word through [facility]'s security personnel that ETA is delayed and to call [facility].
--- NOTE | 2022-04-22 03:55 | PC.NURSE ---
[id number] Oskar from [facility] called and provided up with his direct number [phone].
--- NOTE | 2022-04-22 03:56 | PC.NURSE ---
Laurie Schmitt at [facility] aware of new ambulance ETA [phone].
[2022-04-22 04:00] LABS: Basophils Absolute Auto 0.1 K/mm3 (0.0-0.1); Basophils Percent Auto 0.7 % (0.2-1.2); Eosinophils Absolute Auto 1.2 K/mm3 (0-0.3); Eosinophils Percent Auto 8.2 % (0-4.4); Hematocrit 27.2 % (37.0-47.0); Hemoglobin 7.8 g/dL (12.0-15.0); Immature Granulocyte Absolute 0.14 K/mm3 (0.00-0.031); Lymphocytes Absolute Auto 1.89 K/mm3 (0.9-3.2); Lymphocytes Percent Auto 13.2 % (18.3-44.2); Mean Corpuscular HGB Conc 28.7 g/dl (32-36); Mean Corpuscular Hemoglobin 22.3 pg (26-34); Mean Corpuscular Volume 77.7 fl (80-100); Mean Platelet Volume 9.4 fl (7.4-10.4); Monocytes Absolute Auto 1.7 K/mm3 (0.1-0.6); Monocytes Percent Auto 11.5 % (2.6-8.5); Neutrophils Absolute Auto 9.4 K/mm3 (1.3-6.7); Neutrophils Percent Auto 65.4 % (45.5-73.1); Platelet Count Result 401 k/mm3 (150-375); Red Cell Distribution Width 18.8 % (11.5-14.5); White Blood Count 14.4 K/mm3 (4.5-10.0)
[2022-04-22 04:30] LABS: Anisocytosis 1+ (NORMAL); Hypochromasia 2+ (NORMAL); Microcytosis 1+ (NORMAL); Schistocytes None Seen (NORMAL)
[2022-04-22 04:42] LABS: Alanine Aminotransferase 13 U/L (6-35); Albumin Level 3.2 g/dL (3.5-5.1); Alkaline Phosphatase 93 U/L (38-126); Anion Gap 9 mmol/L (8-16); Aspartate Amino Transferase 25 U/L (14-36); Bilirubin,Total 0.3 mg/dL (0.2-1.3); Blood Urea Nitrogen 74 mg/dL (7-17); Calcium 8.5 mg/dL (8.4-10.2); Carbon Dioxide 25 mmol/L (22-30); Chloride 98 mmol/L (98-107); Estimated CRCL calculation 12 ml/min; Estimated Glomerular Filt Rate 8; Glucose 232 mg/dL (65-110); Phosphorus 6.3 mg/dL (2.5-4.5); Potassium 4.8 mmol/L (3.4-5.0); Sodium 132 mmol/L (137-145)
[2022-04-22 06:00] LABS: Alveolar/Arterial O2 Gradient 51.6 mmHg; Base Excess ABG -0.7 mEq/l (+/-2.0); Carboxyhemoglobin 0.8 % THb (0-2.0); Device VENTILATOR; Fractional Inspired Oxygen 30 %; HCO3 ABG 24.6 mEq/l (22.0-26.0); Methemoglobin ABG 0.2 %THb (0-1.5); Modified Allen's Test Pass; Oxygen Content ABG 10.9 %vol (16.0-22.0); Oxyhemoglobin 96.3 % THb (90.0-100.0); PCO2 ABG 43.3 mmHg (35.0-45.0); PO2 ABG 111.4 mmHg (80.0-100.0); PO2 FiO2 Ratio Arterial Blood 3.71 %; Reduced Hemoglobin 2.7 %THb (0-5.0); Site Drawn LEFT RADIAL; Total Hemoglobin 7.9 g/dL (12.0-18.0); pH ABG 7.372 (7.350-7.450)
[2022-04-22 06:01] LABS: Arterial Blood Gas PEEP 5 cmH2O; Arterial Blood Gas Tidal Volume 380 ml; Arterial Blood Gas Vent Mode CMV; Arterial Blood Gas Ventilator rate 16 /MIN
[2022-04-22 06:46] LABS: Glucose Point of Care 254 mg/dl (65-105)
[2022-04-22] MEDS: LEVOTHYROXINE SODIUM 75 MCG TABLET PO (06:47)
[2022-04-22] MEDS: LEVOTHYROXINE SODIUM 100 MCG TABLET PO (06:47)
[2022-04-22] MEDS: MONTELUKAST SODIUM 10 MG TABLET PO (08:56)
[2022-04-22] MEDS: PANTOPRAZOLE SODIUM IV 40 MG VIAL IV PUSH (08:56)
[2022-04-22] MEDS: FERROUS SULFATE 324 MG TABLET PO (08:56)
[2022-04-22] MEDS: APIXABAN 2.5 MG TABLET PO (08:56)
[2022-04-22] MEDS: CYANOCOBALAMIN 1,000 MCG TABLET 2000 MCG PO (08:56)
[2022-04-22] MEDS: AMIODARONE HCL 200 MG TABLET 400 MG FEED TUBE (08:57)
[2022-04-22] MEDS: MINERAL OIL/WHITE PETROLATUM OINTMENT 1 APPLIC EACH EYE (08:57)
[2022-04-22] MEDS: TRIAMCINOLONE ACET 0.1% CREAM 15 GM TUBE 1 APPLIC TOPICAL (08:57)
[2022-04-22] MEDS: INSULIN GLARGINE (*BKC) 100 UNITS/ML 20 UNITS SUB-Q (09:09)
[2022-04-22] MEDS: METOPROLOL TARTRATE 25 MG TABLET FEED TUBE (09:11)
--- NOTE | 2022-04-22 09:28 | WPDINTPN ---
Progress Note: A&P Assessment and Plan (1) Leukocytosis: Code(s): D72.829 - Elevated white blood cell count, unspecified Status: Acute Assessment and Plan: 04/11: Increasing WBC count with low-grade fevers, -04/11/2022 bilateral lower extremity venous Dopplers: Negative for DVT -04/11/2022 bilateral upper extremity venous Dopplers:Patent bilateral upper extremity veins. No evidence of deep venous thrombosis. 04/11/2022: Right upper quadrant ultrasound: Normal limited abdominal ultrasound 04/11/2022 , UA suggests a UTI, patient was pancultured, Street catheter removed 04/12/2022 CT scan of the chest abdomen and pelvis: Improving bilateral airspace consolidation which may represent resolving pneumonia and/or atelectasis.: Improving pleural effusions.: Improving small pericardial effusion.: There is mild thickening of the rectum with subtle perirectal infiltration, suspicious for proctitis, new since prior examination. 04/13 urine cultures growing Sagrario glabrata -patient was started on fluconazole, switch to p.o. fluconazole on 04/21 for additional 5 days to complete 14 day course. -status post course of ertapenem -completed a 10 day course of vancomycin and a 5 day course of levofloxacin. Now both discontinued (2) Encephalopathy: Code(s): G93.40 - Encephalopathy, unspecified Status: Acute Assessment and Plan: Patient was unresponsive on 04/02 and had to be intubated Likely toxic metabolic encephalopathy Her blood glucose and ABG abnormal but would not explain her mental status CT head done and showed IMPRESSION: 1. 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 2. Mild nonspecific cerebral white matter disease, which likely represents chronic small vessel ischemic disease. Patient on so on some medication that would cause sedation including Neurontin tramadol and Xanax which have been discontinued -off all sedation since 04/08/2022 -04/09/2022 CT brain with no acute intracranial abnormalities, chronic bilateral lacunar infarctions, chronic age-related findings -ammonia level normal on 04/09 -patient neurology evaluation recommendation -04/10/2022 EEG did not show any, consistent with metabolic encephalopathy - 04/12 -patient had MRI done at [facility]. Report report shows chronic small-vessel disease - 04/13 -repeat EEG was done and report is pending -04/14 discussed with nephrology and Neurology, will continue to hold sedation. Has been improving, patient has been off sedation for weeks. Keep off sedation, improve sleep hygiene, keep awake during the day with bright lights on in the room, window blinds should be up, PT/OT, up in chair with assistance (3) Acute on chronic respiratory failure: Code(s): J96.20 - Acute and chronic respiratory failure, unspecified whether with hypoxia or hypercapnia Status: Acute Assessment and Plan: Multifactorial acute on chronic respiratory failure secondary to congestive heart failure, restrictive lung disease from obesity hypoventilation, history of asthma, volume overload from kidney disease, large pleural effusions 04/02 Patient was on BiPAP but was intubated due to poor mental status Vent settings and ABG reviewed 04/03: Chest CT shows There are airspace opacities bilaterally with a dependent predominance, consistent with atelectasis. There are moderate-sized pleural effusions. Patient is getting hemodialysis today to remove fluid Patient received hemodialysis on 04/02, 06/03, 04/04, 04/05, 04/06, 04/07 -04/04/2022: Left-sided thoracenteses with 1000 mL of fluid removal which was done by IR -04/05/2022: Right thoracentesis with 950 ml of fluid removal by IR CXR this morning shows: ?Mild opacities in the bilateral mid and lower lung zones likely combination of mild pulmonary edema and discoid atelectasis although differential includes pneumonia.. Decreased tiny bilateral pleural effusions Continue bronchodilators -off sedation since
--- NOTE | 2022-04-22 09:32 | P.PNNP_ITS ---
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 (3) Acute on chronic respiratory failure: Code(s): J96.20 - Acute and chronic respiratory failure, unspecified whether with hypoxia or hypercapnia Status: Acute Assessment and Plan: * multifactorial: * volume overload * asthma/COPD(?) * RAINA/OHS * anemia * Echo with good LV EF, grade 2 diastolic dysfunction, mild/moderate MR * fluid status optimized with ultrafiltration with dialysis * s/p G-tube placement and tracheostomy * planning discharge to LTACH (4) Hyponatremia: Code(s): E87.1 - Hypo-osmolality and hyponatremia Status: Acute Assessment and Plan: * doing fairly well * most likely dilutional because the patient is not making much urine * dialysis should help to continue to further correct/stabilize (5) Hypertension: Code(s): I10 - Essential (primary) hypertension Status: Chronic Assessment and Plan: * reasonable control at this time * on verapamil and metoprolol (6) Anemia: Code(s): D64.9 - Anemia, unspecified Status: Acute Assessment and Plan: * likely due to MARINA, CKD and acute illness * Epogen with HD * follow trend of H/H (7) Encephalopathy: Code(s): G93.40 - Encephalopathy, unspecified Status: Acute Assessment and Plan: * this seems to slowly improving * evaluation/testing to date noted: * off sedatives * CT brain with nothing acute * ammonia level okay * blood gases look okay * other electrolytes look okay * MRI negative as well * continue supportive therapy (8) Type 2 diabetes mellitus with hyperglycemia: Code(s): E11.65 - Type 2 diabetes mellitus with hyperglycemia Status: Chronic Assessment and Plan: * 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 Subjective Date/time seen: 04/22/22 09:32 Tolerating dialysis treatment at the time of my visit (seen on HD at ~ 9:25AM); remains on ventilator via tracheostomy; off sedation and is able to nod yes/no to simple questions and follow simple commands; remains hemodynamically stable; no other acute issues/events overnight or earlier this AM. Exam Narrative: General: WD/WN female in NAD; s/p trach Heart: normal S1 and S2; no rub Lungs: coarse breath sounds throughout Abdomen: soft, nontender, nondistended, positive bowel sounds Extremities: no cyanosis or clubbing; no edema Skin: warm and intact Objective Data Vital Signs Vital Signs: Vital Signs Temp Pulse Resp BP Pulse Ox O2 Del Method FiO2 04/22/22 08:49 65 23 H 100 04/22/22 08:38 61 20 100 04/22/22 03:02 65 25 H 147/54 H 100 04/22/22 02:49 73 22 H 100 04/22/22 02:35 63
--- NOTE | 2022-04-22 09:32 | PM.PNNEP ---
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 (3) Acute on chronic respiratory failure: Code(s): J96.20 - Acute and chronic respiratory failure, unspecified whether with hypoxia or hypercapnia Status: Acute Assessment and Plan: multifactorial: volume overload asthma/COPD(?) RAINA/OHS anemia Echo with good LV EF, grade 2 diastolic dysfunction, mild/moderate MR fluid status optimized with ultrafiltration with dialysis s/p G-tube placement and tracheostomy planning discharge to LTACH (4) Hyponatremia: Code(s): E87.1 - Hypo-osmolality and hyponatremia Status: Acute Assessment and Plan: doing fairly well most likely dilutional because the patient is not making much urine dialysis should help to continue to further correct/stabilize (5) Hypertension: Code(s): I10 - Essential (primary) hypertension Status: Chronic Assessment and Plan: reasonable control at this time on verapamil and metoprolol (6) Anemia: Code(s): D64.9 - Anemia, unspecified Status: Acute Assessment and Plan: likely due to MARINA, CKD and acute illness Epogen with HD follow trend of H/H (7) Encephalopathy: Code(s): G93.40 - Encephalopathy, unspecified Status: Acute Assessment and Plan: this seems to slowly improving evaluation/testing to date noted: off sedatives CT brain with nothing acute ammonia level okay blood gases look okay other electrolytes look okay MRI negative as well continue supportive therapy (8) Type 2 diabetes mellitus with hyperglycemia: Code(s): E11.65 - Type 2 diabetes mellitus with hyperglycemia Status: Chronic Assessment and Plan: 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 Subjective Date/time seen: 04/22/22 09:32 Tolerating dialysis treatment at the time of my visit (seen on HD at ~ 9:25AM); remains on ventilator via tracheostomy; off sedation and is able to nod yes/no to simple questions and follow simple commands; remains hemodynamically stable; no other acute issues/events overnight or earlier this AM. Exam Narrative: General: WD/WN female in NAD; s/p trach Heart: normal S1 and S2; no rub Lungs: coarse breath sounds throughout Abdomen: soft, nontender, nondistended, positive bowel sounds Extremities: no cyanosis or clubbing; no edema Skin: warm and intact Objective Data Vital Signs Vital Signs: Vital Signs Temp Pulse Resp BP Pulse Ox O2 Del Method FiO2 04/22/22 08:49 65 23 H 100 04/22/22 08:38 61 20 100 04/22/22 03:02 65 25 H 147/54 H 100 04/22/22 02:49 73 22 H 100 04/22/22 02:35 63 28 H 100 04/22/22 00:48 65 23 H 100 04/21/22 23:43 67 25 H 100 04/21/22 23:17 68 25 H 100 04/21/22 22:57 70 27 H 100 04/21/22 22:36 66 22 H 100 04/21/22 22:15 72 24 H 100 04/21/22 22:14 73 23 H 100 04/21/22 21:54 66 21 H 100 04/21/22 20:31 74 23 H 100 04/21/22 20:20 72 26 H 100 04/21/22 19:48 67 23 H 100 04/21/22 19:42 68 24 H 100 04/21/22 19:15 71 24 H 100 04/22/22 10:00 63 18 155/82 H 98 04/22/22 10:00 65 04/22/22 10:15 65 130/47 L 04/22/22 10:00 65 141/50 H 04/22/22 09:45 59 L 120/44 L
--- NOTE | 2022-04-22 11:40 | P.PNIM_ITS ---
Progress Note: A&P Assessment and Plan (1) Leukocytosis: Code(s): D72.829 - Elevated white blood cell count, unspecified Status: Acute Assessment and Plan: 04/11: Increasing WBC count with low-grade fevers, -04/11/2022 bilateral lower extremity venous Dopplers: Negative for DVT -04/11/2022 bilateral upper extremity venous Dopplers:Patent bilateral upper extremity veins. No evidence of deep venous thrombosis. 04/11/2022: Right upper quadrant ultrasound: Normal limited abdominal ultrasound 04/11/2022 , UA suggests a UTI, patient was pancultured, Street catheter removed 04/12/2022 CT scan of the chest abdomen and pelvis: Improving bilateral airspace consolidation which may represent resolving pneumonia and/or atelectasis.: Improving pleural effusions.: Improving small pericardial effusion.: There is mild thickening of the rectum with subtle perirectal infiltration, suspicious for proctitis, new since prior examination. 04/13 urine cultures growing Sagrario glabrata -patient was started on fluconazole, switch to p.o. fluconazole on 04/21 for additional 5 days to complete 14 day course. -status post course of ertapenem -completed a 10 day course of vancomycin and a 5 day course of levofloxacin. Now both discontinued (2) Encephalopathy: Code(s): G93.40 - Encephalopathy, unspecified Status: Acute Assessment and Plan: Patient was unresponsive on 04/02 and had to be intubated Likely toxic metabolic encephalopathy Her blood glucose and ABG abnormal but would not explain her mental status CT head done and showed IMPRESSION: 1. 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 2. Mild nonspecific cerebral white matter disease, which likely represents chronic small vessel ischemic disease. Patient on so on some medication that would cause sedation including Neurontin tramadol and Xanax which have been discontinued -off all sedation since 04/08/2022 -04/09/2022 CT brain with no acute intracranial abnormalities, chronic bilateral lacunar infarctions, chronic age-related findings -ammonia level normal on 04/09 -patient neurology evaluation recommendation -04/10/2022 EEG did not show any, consistent with metabolic encephalopathy - 04/12 -patient had MRI done at [facility]. Report report shows chronic small-vessel disease - 04/13 -repeat EEG was done and report is pending -04/14 discussed with nephrology and Neurology, will continue to hold sedation. Has been improving, patient has been off sedation for days. Keep off sedation, improve sleep hygiene, keep awake during the day with bright lights on in the room, window blinds should be up, PT/OT, up in chair with assistance (3) Acute on chronic respiratory failure: Code(s): J96.20 - Acute and chronic respiratory failure, unspecified whether with hypoxia or hypercapnia Status: Acute Assessment and Plan: Multifactorial acute on chronic respiratory failure secondary to congestive heart failure, restrictive lung disease from obesity hypoventilation, history of asthma, volume overload from kidney disease, large pleural effusions 04/02 Patient was on BiPAP but was intubated due to poor mental status Vent settings and ABG reviewed 04/03: Chest CT shows There are airspace opacities bilaterally with a dependent predominance, consistent with atelectasis. There are moderate-sized pleural effusions. Patient is getting hemodialysis today to remove fluid Patient received hemodialysis on 04/02, 06/03, 04/04, 04/05, 04/06, 04/07 -04/04/2022: Left-sided thoracenteses with 1000 mL of fluid removal which was done by IR -04/05/2022: Right thoracentesis with 950 ml o
[2022-04-22 12:25] LABS: Glucose Point of Care 207 mg/dl (65-105)
--- NOTE | 2022-04-24 12:23 | P.OP_ITS ---
Procedure Note - Detailed Date of Procedure 04/24/22 Pre-op Diagnosis Acute on Chronic Resp Failure Post-op Diagnosis Same Procedure Performed Tracheostomy Surgeon Yaakov Macias MD Anesthesia General Indications see above Findings absent thyroid isthmus trach placed successfully below cricoid cartilage. Chris Paulley Description of Procedure patient identified consent verified. Patient brought operating room from ICU. Time-out performed patient moved position prep 2nd time-out performed. Fifteen blade utilized to cut about 1 fingerbreadth above the notch 1 fingerbreadth below the cricoid cartilage. Incision was probably 4 cm long 3 cm long. Bovie electrocautery lysed to go down strap muscles strap muscles cut the midline [employer] utilized to pull all the tissue off the trachea tracheal ring explosive exposed cauterized 15 blade utilized to perform tracheotomy endotracheal tube removed in total no longer visible in the tracheotomy cricoid hook placed to maintain good tension. Trach placed anesthesia connected to circuit confirmed end-tidal CO2. Four corner stitches placed cricoid hooks [employer] is patient tolerated the procedure well no complications minimal blood loss if any. I pe rformed all dictated portions of the procedure Urine Output 0 Drains No Packing No Pathology None sent Complications No immediate complications Condition Stable Disposition ICU [facility] Billing Surgery - Charge Forward: Surgery Billing
--- NOTE | 2022-05-18 12:27 | PM.TDS ---
Transfer Discharge Sum: Prov Provider Date of admission: 04/01/22 13:35 Primary care physician: Rikki Amezquita MD Admitting clinician: Gwen Jaimes DO Consults: 03/31/22 Consult to Physician Routine Comment: Consulting Provider: Jame Dumont Reason for consultation: Dialysis patient Has provider been notified: Yes Consult to Physician Routine Comment: Called on 03/31/2022 @1558 TR RN Consulting Provider: Regino Zhao Reason for consultation: COPD/Asthma Has provider been notified: Yes 04/02/22 Consult to Physician Routine Comment: icu admission Consulting Provider: Devyn Casillas body recall instructor/MD group to consult: icu asbestos shingle inspector Reason for consultation: respiratory distress Has provider been notified: Yes 04/10/22 07:23 Consult to Physician Routine Comment: spoke with dr @ 0740 (, ) Consulting Provider: Montse Hodge body recall instructor/MD group to consult: Neurology Reason for consultation: Encephalopathy Has provider been notified: Yes 04/15/22 Consult to Physician Routine Comment: spoke with zhane @ [phone] (, ) Consulting Provider: Savanna Chamberlain body recall instructor/MD group to consult: Cardiology Reason for consultation: Afib DC Cardioversion Has provider been notified: Yes 04/17/22 Consult to Physician Routine Comment: spoke w @ [phone] (, ) Consulting Provider: Ronal Mackey body recall instructor/MD group to consult: GI Reason for consultation: PEG tube Has provider been notified: Yes Consult to Physician Routine Comment: spoke w @ [phone] Consulting Provider: Yaakov Macias body recall instructor/MD group to consult: ENT Reason for consultation: Trach Has provider been notified: Yes DS: Admitting Diagnosis Discharge Date 04/22/22 Admitting Diagnosis encephalopathy and respiratory failure DS: Discharge Diagnosis Discharge Diagnosis (1) Leukocytosis: Code(s): D72.829 - Elevated white blood cell count, unspecified Status: Acute Assessment and Plan: 04/11: Increasing WBC count with low-grade fevers, -04/11/2022 bilateral lower extremity venous Dopplers: Negative for DVT -04/11/2022 bilateral upper extremity venous Dopplers:Patent bilateral upper extremity veins. No evidence of deep venous thrombosis. 04/11/2022: Right upper quadrant ultrasound: Normal limited abdominal ultrasound 04/11/2022 , UA suggests a UTI, patient was pancultured, Street catheter removed 04/12/2022 CT scan of the chest abdomen and pelvis: Improving bilateral airspace consolidation which may represent resolving pneumonia and/or atelectasis.: Improving pleural effusions.: Improving small pericardial effusion.: There is mild thickening of the rectum with subtle perirectal infiltration, suspicious for proctitis, new since prior examination. 04/13 urine cultures growing Sagrario glabrata -patient was started on fluconazole, switch to p.o. fluconazole on 04/21 for additional 5 days to complete 14 day course. -status post course of ertapenem -completed a 10 day course of vancomycin and a 5 day course of levofloxacin. Now both discontinued (2) Encephalopathy: Code(s): G93.40 - Encephalopathy, unspecified Status: Acute Assessment and Plan: Patient was unresponsive on 04/02 and had to be intubated Likely toxic metabolic encephalopathy Her blood glucose and ABG abnormal but would not explain her mental status CT head done and showed IMPRESSION: 1. 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 2. Mild nonspecific cerebral white matter disease, which likely represents chronic small vessel ischemic disease. Patient on so on some medication that would cause sedation including Neurontin tramadol and Xanax which have been discontinued -off all sedation since 04/08/2022 -04/09/2022 CT brain with no acute intracranial abnormalities, chronic bilateral lacunar infarctions, chronic age-related findings -ammonia level normal on 04/09 -patient neurology evaluation recommendation -
== END 2022-04-22 16:38 | DRG 4 ==
LOC: ANHED 01:54 → ANH3MED 02:40 → ANHICU 04-02 15:32
PROVIDERS: Family Medicine; Internal Medicine; Internal Medicine Gastroenterology; Internal Medicine Nephrology; Internal Medicine Pulmonary Disease; Nurse Practitioner; Otolaryngology; Admitting Provider Internal Medicine; Emergency Provider Emergency Medicine; PCP Family Medicine; Visit Provider Internal Medicine
PROC: 0DH63UZ Insertion of Feeding Device into Stomach, Percutaneous Approach (ICD-10-PCS; CPT 43246; principal; 2022-04-18 12:30)
PROC: 0B110F4 Bypass Trachea to Cutaneous with Tracheostomy Device, Open Approach (ICD-10-PCS; principal; 2022-04-20 09:30)
DX: I13.2 Hypertensive heart and chronic kidney disease with heart failure and with stage 5 chronic kidney disease, or end stage renal disease (principal); G92.8 Other toxic encephalopathy; I50.33 Acute on chronic diastolic (congestive) heart failure; N18.6 End stage renal disease; J96.22 Acute and chronic respiratory failure with hypercapnia; N17.0 Acute kidney failure with tubular necrosis; E66.2 Morbid (severe) obesity with alveolar hypoventilation; J90 Pleural effusion, not elsewhere classified; E87.1 Hypo-osmolality and hyponatremia; I48.19 Other persistent atrial fibrillation; D63.1 Anemia in chronic kidney disease; E11.65 Type 2 diabetes mellitus with hyperglycemia; E11.22 Type 2 diabetes mellitus with diabetic chronic kidney disease; Z99.2 Dependence on renal dialysis; Z20.822 Contact with and (suspected) exposure to COVID-19; Z68.37 Body mass index [BMI] 37.0-37.9, adult; I48.91 Unspecified atrial fibrillation; T42.6X5A Adverse effect of other antiepileptic and sedative-hypnotic drugs, initial encounter; T40.425A Adverse effect of tramadol, initial encounter; T42.4X5A Adverse effect of benzodiazepines, initial encounter; I25.10 Atherosclerotic heart disease of native coronary artery without angina pectoris; F41.1 Generalized anxiety disorder; R13.19 Other dysphagia; J44.9 Chronic obstructive pulmonary disease, unspecified; Z86.718 Personal history of other venous thrombosis and embolism; Z87.891 Personal history of nicotine dependence; Z79.01 Long term (current) use of anticoagulants; Z86.73 Personal history of transient ischemic attack (TIA), and cerebral infarction without residual deficits; Z88.2 Allergy status to sulfonamides; Z79.899 Other long term (current) drug therapy; Z79.4 Long term (current) use of insulin; Z82.49 Family history of ischemic heart disease and other diseases of the circulatory system
CPT/HCPCS: 31500; 32555; 36415; 36430; 36600; 43246; 50200; 70450; 71045; 71250; 74176; 76705; 76942; 80053; 80069; 80074; 80202; 81001; 82140; 82274; 82375; 82607; 82746; 82805; 82948; 83050; 83520; 83615; 83735; 83880; 84100; 84295; 84439; 84443; 84478; 84480; 84484; 85025; 85027; 85610; 85730; 86036; 86160; 86235; 86850; 86900; 86901; 87040; 87070; 87081; 87086; 87088; 87106; 87186; 87205; 87493; 87636; 88300; 88305; 88313; 88329; 88346; 88348; 88350; 93005; 93970; 94002; 94003; 94640; 94660; 95816; 97161; 97165; 99285; A4629; A9270; C8929; C9113; G0257; G0378; J0131; J0282; J0690; J0692; J1335; J1450; J1644; J1815; J1956; J2060; J2704; J3010; J3370; J3475; J7030; J7040; J7050; J7131; P9017; Q5105; Q9957

== ENCOUNTER 2022-06-03 14:28 | Emergency (ER) | payer MEDICARE, SELFPAY ==
[2022-06-03] VITALS (8 sets, daily range): BP systolic 130–174; BP diastolic 42–56; PULSE 66–80; RESP 13–22; TEMP 36.3; O2SAT 92–97
--- NOTE | ~2022-06-03 | XR_ITS ---
EXAMINATION: XR chest 2V DATE: 06/03/2022 15:33 INDICATION: Shortness of breath. TECHNIQUE: Frontal and lateral views of the chest were obtained. COMPARISON: Chest single view 04/22/2022, chest CT 04/12/2022 FINDINGS: There are small pleural effusions. There are mild airspace opacities in the mid and lower l yeimi zones. No pneumothorax. The heart size is normal. A right internal jugular central venous cathete r is seen with tip in the right atrium. IMPRESSION: 1. Mild airspace opacities in the mid and lower lung zones, consistent with atelectasis versus pneumo patrice. 2. Small pleural effusions. Reviewed, dictated and finalized at location A. OWS PHONE DEVELOPER IMPRESSION: 1. Mild airspace opacities in the mid and lower lung zones, consistent with ate lectasis versus pneumonia. 2. Small pleural effusions.
--- NOTE | 2022-06-03 14:58 | ECG_ITS ---
Measurements Intervals [place] Rate: 62 P: 63 AR: 171 QRS: 17 QRSD: 85 T: 53 QT: 394 QTc: 402 Interpretive Statements SINUS RHYTHM BASELINE ARTIFACT- III NORMAL ECG COMPARED TO ECG 04/17/2022 09:40:56 NO SIGNIFICANT CHANGES Electronically Signed On 06-05-2022 14:14:45 COMMERCIAL DEVELOPMENT MANAGER by Brannon Hatfield D.O.
[2022-06-03 15:14] LABS: Basophils Absolute Auto 0.1 K/mm3 (0.0-0.1); Basophils Percent Auto 0.7 % (0.2-1.2); Eosinophils Absolute Auto 0.2 K/mm3 (0-0.3); Eosinophils Percent Auto 1.5 % (0-4.4); Hematocrit 35.4 % (37.0-47.0); Hemoglobin 10.4 g/dL (12.0-15.0); Immature Granulocyte Absolute 0.15 K/mm3 (0.00-0.031); Lymphocytes Absolute Auto 2.09 K/mm3 (0.9-3.2); Lymphocytes Percent Auto 14.6 % (18.3-44.2); Mean Corpuscular HGB Conc 29.4 g/dl (32-36); Mean Corpuscular Hemoglobin 25.1 pg (26-34); Mean Corpuscular Volume 85.3 fl (80-100); Mean Platelet Volume 9.3 fl (7.4-10.4); Monocytes Absolute Auto 1.1 K/mm3 (0.1-0.6); Monocytes Percent Auto 7.4 % (2.6-8.5); Neutrophils Absolute Auto 10.7 K/mm3 (1.3-6.7); Neutrophils Percent Auto 74.8 % (45.5-73.1); Platelet Count Result 358 k/mm3 (150-375); Red Blood Count 4.15 M/mm3 (4.2-5.4); White Blood Count 14.3 K/mm3 (4.5-10.0)
[2022-06-03 15:27] LABS: Alanine Aminotransferase 18 U/L (6-35); Albumin Level 3.5 g/dL (3.5-5.1); Alkaline Phosphatase 109 U/L (38-126); Anion Gap 5 mmol/L (8-16); Aspartate Amino Transferase 25 U/L (14-36); Bilirubin,Total 0.5 mg/dL (0.2-1.3); Blood Urea Nitrogen 18 mg/dL (7-17); Calcium 8.5 mg/dL (8.4-10.2); Carbon Dioxide 38 mmol/L (22-30); Chloride 93 mmol/L (98-107); Estimated CRCL calculation 19 ml/min; Estimated Glomerular Filt Rate 16; Glucose 139 mg/dL (65-110); Potassium 3.2 mmol/L (3.4-5.0); Sodium 136 mmol/L (137-145)
--- NOTE | 2022-06-03 15:32 | ED.GENADULT ---
HPI - General Adult General Chief complaint: Shortness of Breath/Dyspnea Stated complaint: Shortness of Breath Time Seen by Provider: 06/03/22 14:41 History of Present Illness HPI narrative: 71-year-old female presented to the emergency department for evaluation of increased cough with congestion. Patient does have a significant past medical history including type 2 diabetes, kidney disease on dialysis, CHF, asthma/COPD, hypertension, atrial fibrillation. In February patient had an issue with acute kidney injury ultimately requiring her to be transferred to [facility] and patient has been getting dialysis since February. Patient states she gets her dialysis on Tuesdays and Saturdays. Patient did have dialysis today. Related Data Home Medications Medication Instructions Recorded Confirmed cyanocobalamin (vitamin B-12) 2,000 mcg PO DAILY 03/19/19 03/31/22 2,000 mcg tablet,extended release (Vitamin B-12 ER) fluticasone propionate 50 2 spray intranasal DAILY 03/19/19 03/31/22 mcg/actuation nasal spray,suspension insulin glargine 100 unit/mL (3 40 unit subcut HS 07/04/21 03/31/22 mL) subcutaneous pen (Lantus Solostar U-100 Insulin) montelukast 10 mg tablet 10 mg PO QAM 11/22/21 03/31/22 albuterol sulfate 90 mcg/actuation 2 puff inhalation QID 02/11/22 03/31/22 aerosol inhaler (Ventolin HFA) insulin aspart U-100 100 unit/mL 10 - 30 sliding scale dose subcut 02/11/22 03/31/22 (3 mL) subcutaneous pen (Novolog TIDWM FlexPen U-100 Insulin aspart) verapamil 360 mg 24 hr 360 mg PO DAILY 02/11/22 03/31/22 capsule,extended release insulin syringe-needle U-100 1 mL #10 ea 03/14/22 03/31/22 31 gauge x 15/64 (BD Veo Insulin Syringe Ultra-Fine) levothyroxine 200 mcg tablet 175 mcg PO DAILY 03/14/22 03/31/22 (Synthroid) Allergies Allergy/AdvReac Type Severity Reaction Status Date / Time nickel Allergy Unknown hives and Verified 06/03/22 14:59 itchy rash nifedipine Allergy Unknown palpitation Verified 06/03/22 14:59 s Sulfa (Sulfonamide Allergy Unknown Urticaria Verified 06/03/22 14:59 Antibiotics) and hives Tidlrwi-EBJ-AeL Reductase AdvReac Intermediate muscle Verified 06/03/22 14:59 Inhibitor cramps [Mafkjrt-Wtz-Ijy Reductase Inhibitor] diphenhydramine AdvReac Unknown restless Verified 06/03/22 14:59 legs CALCIUMCHANNEL AdvReac Unknown SEE COMMIT Uncoded 06/03/22 14:59 Review of Systems Review of Systems: CONSTITUTIONAL: Denies fever, chills, or sweats. EYES: Denies visual changes, redness, or discharge. ENT: Denies rhinorrhea, congestion, sore throat, or otalgia. CARDIOVASCULAR: Denies chest pain, palpitations, or edema. RESPIRATORY: See HPI GASTROINTESTINAL: Denies abdominal pain, nausea, vomiting, or diarrhea. GENITOURINARY: Denies dysuria or hematuria. SKIN: Denies rash or itching. MUSCULOSKELETAL: Denies back pain, joint pain, or myalgia. NEUROLOGIC: Denies headache, numbness, or weakness. 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 Chronic diastolic (congestive) heart failure Chronic kidney disease, stage 3 unspecified Chronic kidney disease, stage III (moderate) COPD (chronic obstructive pulmonary disease) Coronary artery disease involving [place] heart without angina pectoris Depression DVT (deep venous thrombosis) ARACELY (generalized anxiety disorder) GERD without esophagitis History of stroke Hypertensive heart disease with heart failure and stage 3 chronic kidney disease Hyponatremia Hypothyroid Left knee DJD Long-term insulin use Peripheral polyneuropathy Pre-ulcerative calluses Sepsis Type 2 diabetes mellitus with hyperglycemia Family History Family History Father Hypertension Family history of coronary artery disease Sibling Hypertension Family history of coronary artery di
[2022-06-03] MEDS: ALBUTEROL SULFATE NEB 2.5 MG/3 ML INH 5 MG INHALATION (15:33)
[2022-06-03 15:45] LABS: Hypochromasia 1+ (NORMAL); Platelet Estimate Adequate (Adequate)
[2022-06-03 15:46] LABS: Anisocytosis 1+ (NORMAL); Ovalocytes 1+ (NORMAL); Schistocytes None Seen (NORMAL); Stomatocytes 1+ (NORMAL)
[2022-06-03 15:58] LABS: Influenza A QL RT-PCR Negative (Negative); Influenza B QL RT-PCR Negative (Negative); RSV RNA, RT-PCR Negative (Negative); SARS-CoV-2 RNA PCR Negative
== END 2022-06-03 18:49 | disposition home or self-care (01) ==
PROVIDERS: Emergency Provider Emergency Medicine; PCP Family Medicine
DX: J18.9 Pneumonia, unspecified organism (principal); Z20.822 Contact with and (suspected) exposure to COVID-19; E11.22 Type 2 diabetes mellitus with diabetic chronic kidney disease; I13.2 Hypertensive heart and chronic kidney disease with heart failure and with stage 5 chronic kidney disease, or end stage renal disease; N18.6 End stage renal disease; I50.32 Chronic diastolic (congestive) heart failure; Z99.2 Dependence on renal dialysis; J44.9 Chronic obstructive pulmonary disease, unspecified; I25.10 Atherosclerotic heart disease of native coronary artery without angina pectoris; E11.42 Type 2 diabetes mellitus with diabetic polyneuropathy; E03.9 Hypothyroidism, unspecified; K21.9 Gastro-esophageal reflux disease without esophagitis; M17.12 Unilateral primary osteoarthritis, left knee; Z86.718 Personal history of other venous thrombosis and embolism; Z87.891 Personal history of nicotine dependence; Z79.01 Long term (current) use of anticoagulants; Z79.4 Long term (current) use of insulin
CPT/HCPCS: 36415; 71046; 80053; 85025; 87040; 87076; 87637; 93005; 94640; 96365; 96367; 99284; J0456; J0696

== ENCOUNTER 2022-07-07 00:38 | Day surgery (SDC) | payer MEDICARE, SELFPAY ==
[2022-06-28 15:10] VITALS: BMI 41.2
--- NOTE | 2022-07-06 16:03 | PM.HPGS ---
History of Present Illness History of Present Illness Consent: Risks, benefits, and alternatives have been discussed and questions answered. Patient agrees to proceed with procedure. Chief complaint: malfunctioning G-Tube Narrative: Gregoria Rae is a 71 year old female Who wishes to have her G-tube removed. ? She was hospitalized for over 2 months during which time she was on a ventilator and required tube feedings.? She eventually had tracheostomy placed and I was asked to insert a G-tube which was done in mid April.? 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 Chronic diastolic (congestive) heart failure Chronic kidney disease, stage 3 unspecified Chronic kidney disease, stage III (moderate) COPD (chronic obstructive pulmonary disease) Coronary artery disease involving [place] heart without angina pectoris Depression DVT (deep venous thrombosis) ARACELY (generalized anxiety disorder) GERD without esophagitis History of stroke Hypertensive heart disease with heart failure and stage 3 chronic kidney disease Hyponatremia Hypothyroid Left knee DJD Long-term insulin use Peripheral polyneuropathy Pre-ulcerative calluses Sepsis Type 2 diabetes mellitus with hyperglycemia Family History Family History Father Hypertension Family history of coronary artery disease Sibling Hypertension Family history of coronary artery disease Mother Cerebrovascular accident Other Asthma Depression Family history of Alzheimer's disease Family history of arthritis Family history of cardiovascular disease Family history of lymphoma Family history of obesity Family history of seizure disorder Social History Social History Smoking packs per day: 2 Smoking cigarettes per day: 40.0 Years smoked: 30 Smoking pack-years: 60.00 Smoking status: Former smoker Tobacco type: cigarettes Second hand tobacco smoke exposure: No Smoking end date: 05/07/89 Alcohol intake: never Drinks per week: 1 Alcohol use details: 1/MONTH Substance use: never Substance use type: does not use Lack of Transportation: No Lack of Food: Never True Current Housing: I Have Housing Concerned About Future Housing: No Difficulty Paying Gas/Electric Bills: No Difficulty Paying for Meds: No Currently Unemployed: No Education: Bachelor's Degree Difficulty w/ Childcare or Family Care: No Living arrangements: with family Occupation/Education: retired Gender identity (if verbalized by the patient): Female Spiritual care concerns: No Meds Home Medications and Allergies Home Medications Medication Instructions Recorded Confirmed Type fluticasone propionate 50 2 spray intranasal DAILY 03/19/19 07/04/22 History mcg/actuation nasal spray,suspension insulin glargine 100 unit/mL (3 30 unit subcut HS 07/04/21 07/04/22 History mL) subcutaneous pen (Lantus Solostar U-100 Insulin) insulin syringe-needle U-100 1 mL #100 ea 10/14/21 07/04/22 Rx 31 gauge x 5/16 (BD Insulin Syringe Ultra-Fine) albuterol sulfate 90 mcg/actuation 2 puff inhalation QID 02/11/22 07/04/22 History aerosol inhaler (Ventolin HFA) insulin aspart U-100 100 unit/mL 10 - 30 sliding scale dose subcut 02/11/22 07/04/22 History (3 mL) subcutaneous pen (Novolog TIDWM FlexPen U-100 Insulin aspart) blood sugar diagnostic (OneTouch #400 ea 02/20/22 07/04/22 Rx Verio test strips) pantoprazole 40 mg tablet,delayed 40 mg PO QAM #90 tabs 03/06/22 07/04/22 Rx release flash glucose scanning reader #1 ea 03/14/22 07/04/22 Rx (FreeS
[2022-07-07 12:49] VITALS: BP 179/53; PULSE 65; RESP 18; TEMP 36.6; O2SAT 91
--- NOTE | 2022-07-07 12:57 | WPDANESEPPF ---
Anes - Initial Pre Proc Eval Procedure: Operation Date: 07/07/22 14:00 Proposed Procedures p Esophagogastroduodenoscopy - Ronal Mackey MD s Removal Gastrostomy Tube - Ronal Mackey MD Date/Time: 07/07/22 12:57 Surgeon: Ronal Mackey MD Pre Op Diagnosis: malfunctioning G-Tube Patient Data Age: 71 Gender: F Height: 1.63 m Weight: 106.7 kg Last Vital Signs Temp 97.9 F 07/07/22 12:49 Pulse 65 07/07/22 12:49 Resp 18 07/07/22 12:49 BP 179/53 H 07/07/22 12:49 Pulse Ox 91 07/07/22 12:49 O2 Del Method Room Air 07/07/22 12:49 Allergies Allergy/AdvReac Type Severity Reaction Status Date / Time nickel Allergy Intermediate hives and Verified 07/07/22 12:45 itchy rash nifedipine Allergy Intermediate palpitation Verified 07/07/22 12:45 s Sulfa (Sulfonamide Allergy Intermediate Urticaria Verified 07/07/22 12:45 Antibiotics) and hives diphenhydramine AdvReac Intermediate restless Verified 07/07/22 12:45 legs Darkotl-EAD-RfI Reductase AdvReac Intermediate muscle Verified 07/07/22 12:45 Inhibitor cramps [Uzvhndn-Qdk-Wob Reductase Inhibitor] CALCIUMCHANNEL AdvReac Intermediate SEE COMMIT Uncoded 07/07/22 12:45 Home Medications Medication Instructions Recorded Confirmed Type fluticasone propionate 50 2 spray intranasal DAILY 03/19/19 07/04/22 History mcg/actuation nasal spray,suspension insulin glargine 100 unit/mL (3 30 unit subcut HS 07/04/21 07/04/22 History mL) subcutaneous pen (Lantus Solostar U-100 Insulin) insulin syringe-needle U-100 1 mL #100 ea 10/14/21 07/04/22 Rx 31 gauge x 5/16 (BD Insulin Syringe Ultra-Fine) albuterol sulfate 90 mcg/actuation 2 puff inhalation QID 02/11/22 07/04/22 History aerosol inhaler (Ventolin HFA) insulin aspart U-100 100 unit/mL 10 - 30 sliding scale dose subcut 02/11/22 07/04/22 History (3 mL) subcutaneous pen (Novolog TIDWM FlexPen U-100 Insulin aspart) blood sugar diagnostic (OneTouch #400 ea 02/20/22 07/04/22 Rx Verio test strips) pantoprazole 40 mg tablet,delayed 40 mg PO QAM #90 tabs 03/06/22 07/04/22 Rx release flash glucose scanning reader #1 ea 03/14/22 07/04/22 Rx (FreeStyle Nica 2 [place]) flash glucose sensor (FreeStyle #6 ea 03/14/22 07/04/22 Rx Nica 2 Sensor kit) insulin syringe-needle U-100 1 mL #10 ea 03/14/22 07/04/22 History 31 gauge x 15/64 (BD Veo Insulin Syringe Ultra-Fine) metoprolol succinate 50 mg 50 mg PO QAM #30 tabs 03/29/22 07/04/22 Rx tablet,extended release 24 hr apixaban 2.5 mg tablet (Eliquis) 2.5 mg PO BID #60 tabs 06/05/22 07/04/22 Rx fluticasone fur. 200 mcg-umeclid 1 ea inhalation DAILYRT #1 ea 06/16/22 07/04/22 Rx 62.5 mcg-vilant 25 mcg inhalat.powder (Trelegy Ellipta) tramadol 50 mg tablet 50 mg PO Q6H PRN Pain 06/20/22 07/04/22 History montelukast 10 mg tablet 10 mg PO QAM #90 tabs 06/23/22 07/04/22 Rx Adult Probiotic 1 cap PO DAILY 06/28/22 07/04/22 History amiodarone 200 mg tablet 200 mg PO HS 06/28/22 07/04/22 History calcium acetate(phosphat bind) 667 667 mg PO BID 06/28/22 07/04/22 History mg capsule gabapentin 600 mg tablet 600 mg PO BID 06/28/22 07/04/22 History levothyroxine 175 mcg tablet 175 mcg PO DAILY #90 tabs 06/28/22 07/04/22 Rx ropinirole 1 mg tablet 1 mg PO BID #60 tabs 07/04/22 07/07/22 Rx Overnight Ox/ Oxygen #1 ea 07/07/22 Rx Patient hx anesthesia problems: none Family hx anesthesia problems: none Results Review: All pre-operative results and documents have been reviewed as part of the pre-operative evaluation. [facility] Past Medical History Medical History 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 Chronic diastolic (congestive) heart failure Chronic kidney disease, stage 3 unspecified Chronic kidney disease, stage III (moderate) COPD (chronic obstructive pulmonary disease) Coronary artery disease involving [place] heart without maddi
[2022-07-07 13:06] LABS: Glucose Point of Care 231 mg/dl (65-105)
[2022-07-07] MEDS: SODIUM CHLORIDE 0.9% IV 500 ML 30 ML IV CONT (13:12)
[2022-07-07 13:39] VITALS: BP 185/76; PULSE 63; RESP 14; O2SAT 98
[2022-07-07 13:49] VITALS: BP 172/63; PULSE 63; RESP 18; O2SAT 93
[2022-07-07 13:50] LABS: Glucose Point of Care 237 mg/dl (65-105)
[2022-07-07 13:59] VITALS: BP 187/73; PULSE 67; RESP 22; O2SAT 91
== END 2022-07-07 14:12 | disposition home or self-care (01) ==
PROVIDERS: PCP Family Medicine; Visit Provider Internal Medicine Gastroenterology
PROC: 0DJ08ZZ Inspection of Upper Intestinal Tract, Via Natural or Artificial Opening Endoscopic (ICD-10-PCS; CPT 43235; principal; 2022-07-07 14:00)
PROC: (CPT 43999; 2022-07-07 14:00)
DX: Z43.1 Encounter for attention to gastrostomy (principal); K31.7 Polyp of stomach and duodenum; I13.0 Hypertensive heart and chronic kidney disease with heart failure and stage 1 through stage 4 chronic kidney disease, or unspecified chronic kidney disease; I50.32 Chronic diastolic (congestive) heart failure; E11.22 Type 2 diabetes mellitus with diabetic chronic kidney disease; N18.30 Chronic kidney disease, stage 3 unspecified; J44.9 Chronic obstructive pulmonary disease, unspecified; I25.10 Atherosclerotic heart disease of native coronary artery without angina pectoris; F41.1 Generalized anxiety disorder; F32.A Depression, unspecified; K21.9 Gastro-esophageal reflux disease without esophagitis; E03.9 Hypothyroidism, unspecified; E11.42 Type 2 diabetes mellitus with diabetic polyneuropathy; Z86.73 Personal history of transient ischemic attack (TIA), and cerebral infarction without residual deficits; Z87.891 Personal history of nicotine dependence; Z79.4 Long term (current) use of insulin; Z79.51 Long term (current) use of inhaled steroids; Z79.01 Long term (current) use of anticoagulants
CPT/HCPCS: 43247; 82948; J2704; J7040

== ENCOUNTER 2022-07-18 08:33 | Outpatient (CLI) | payer MEDICARE, SELFPAY ==
--- NOTE | 2022-08-13 20:14 | WPDSLEEPSTUD ---
Sleep Study Date of Study: 07/18/22 Ordering Provider: Uriel Salgado MD Interpreting Physician: Mary Valentin MD Sleep Study Type: Split Polysomnogram Height: 1.63 m Weight: 123.377 kg Body Mass Index: 46.7 Neck Circumference (inches): 16 [place]: 12 Reason for Sleep Study Hypersomnolence Sleep History Greogria Rae is a 71-year-old woman with COPD-asthma overlap who uses oxygen 2 L at night. She is on hemodialysis. She has restless legs associated with her end-stage renal disease on dialysis. She sleeps only a few hours at a time and sleeps very poorly. She wakes up throughout the night. She frequently awakens from sleep feeling short of breath. She rarely awakens at night with heartburn, belching or coughing. She occasionally snores. She never snores loudly enough that others complain. She always has trouble sleeping with a cold. She rarely wakes up gasping for breath at night. She occasionally has breathing problems at night observed by others. She rarely sweats excessively at night. She occasionally notices her heart pounding or beating irregularly at night. She frequently falls asleep during the day, involuntarily but never while driving. She does not have loss of muscle tone with strong emotion. She does not have daytime difficulties due to excessive sleepiness. She rarely feels paralyzed on waking or falling asleep. She never has vivid dreamlike scenes on waking or falling asleep. She rarely feels afraid to go to sleep. She occasionally has nightmares. She constantly remembers her dreams. She frequently has racing thoughts. She frequently feels sad or depressed. She occasionally feels anxiety. She frequently has muscular tension. She frequently notices parts of her body jerking. She frequently kicks at night. She occasionally has crawling and aching feelings in her legs. She does not have any kind of leg pain at night. She does not have morning jaw pain. She constantly grinds her teeth during sleep. She is not bothered by pain during the day or awakened by pain at night. She always wakes up feeling stiff in the morning with sore achy muscles and pain in the neck and spine. She has fatigue. Normal bedtime is 1:30 a.m. falling asleep within 5-10 minutes, typically waking around 330 in the morning to go to the bathroom. She may stay awake for 20 minutes. She wakes in the morning to start her day at 7:00 a.m.. On weekends, schedule is similar, going to bed between 1 and 2:00 a.m. and waking at 7:00 a.m.. She estimates getting 4-5 hours of sleep at night. She takes naps in the afternoon or evening. She is drowsy for 1 hour after waking. she does not feel better in the morning compared to the afternoon or evening. It is all about the same. Habits: Quit tobacco years ago. Caffeine 1 cup per day. No alcohol or recreational substances. [facility] Past Medical History Medical History (Updated 08/13/22 @ 20:38 by Mary Valentin MD) 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 Chronic diastolic (congestive) heart failure Chronic kidney disease, stage 3 unspecified Chronic kidney disease, stage III (moderate) COPD (chronic obstructive pulmonary disease) Coronary artery disease involving [place] heart without angina pectoris Depression DVT (deep venous thrombosis) ARACELY (generalized anxiety disorder) GERD without esophagitis History of stroke Hypertensive heart disease with heart failure and stage 3 chronic kidney disease Hyponatremia Hypothyroid Left knee DJD Long-term insulin use Peripheral polyneuropathy Pre-ulcerative calluses Sepsis Type 2 diabetes mellitus with hyperglycemia Surgical History Surgical History (Updated 07/10/22 @ 07:50 by Rikki Amezquita MD) History of gastrostomy tube placement and removal Family History Family History Father Hypertension Family history of coronary artery disease Sibling Hypertension Family history o
[2022-08-13 20:18] VITALS: BMI 46.7
== END 2022-07-19 07:51 | disposition home or self-care (01) ==
LOC: ANHCSM 08:34
PROVIDERS: PCP Family Medicine; Visit Provider Internal Medicine Pulmonary Disease
DX: G25.81 Restless legs syndrome (principal); G47.33 Obstructive sleep apnea (adult) (pediatric); G47.10 Hypersomnia, unspecified; Z68.42 Body mass index [BMI] 45.0-49.9, adult
CPT/HCPCS: 95811

== ENCOUNTER 2022-08-31 10:43 | Emergency (ER) | payer MEDICARE, SELFPAY ==
[2022-08-31] VITALS (8 sets, daily range): BP systolic 136–158; BP diastolic 37–69; PULSE 61–64; RESP 12–22; TEMP 36.4; O2SAT 95–100
--- NOTE | ~2022-08-31 | XR_ITS ---
EXAMINATION: XR chest 1V INDICATION: Shortness of breath TECHNIQUE: AP view of the chest is obtained. COMPARISON: 06/03/2022 FINDINGS: A right internal jugular dialysis catheter ends with its tip in the right atrium. Cardiomeg faustino is noted. There is a small left pleural effusion. No pneumothorax is identified. A mild diffuse i nterstitial pattern is present. IMPRESSION: 1. Cardiomegaly with mild pulmonary edema. 2. Small left pleural effusion. Reviewed, dictated and finalized at location L.
--- NOTE | ~2022-08-31 | CT_ITS ---
EXAMINATION: CT brain wo con INDICATION: Altered mental COMPARISON: 04/09/2022 TECHNIQUE: Standard unenhanced head CT. The dose-length product (DLP) was 605.33 mGy-cm. The mA was a djusted according to patient size. Iterative reconstruction technique was employed. FINDINGS: There is no acute intraparenchymal hemorrhage. No evidence of mass lesion. No evidence of a cute infarction. Old infarcts are again noted in the bilateral basal ganglia. There is mild periventr icular and subcortical hypodensity probably related to small vessel ischemic disease. There is mild p rominence of the sulci and ventricles related to cerebral atrophy. Intracranial calcified cerebral at herosclerosis is noted. There are no extra-axial collections. There is no mass effect or midline shif t. Changes in the globes are likely from ocular lens surgery. The visualized sinuses and mastoid air cells are well aerated. IMPRESSION: 1. Areas of prior infarction without acute intracranial abnormality. 2. Age related findings. Reviewed, dictated and finalized at location L.
--- NOTE | 2022-08-31 10:49 | ECG_ITS ---
Measurements Intervals [place] Rate: 61 P: 66 [place]: 132 QRS: -13 QRSD: 93 T: 52 QT: 438 QTc: 445 Interpretive Statements SINUS RHYTHM COMPARED TO ECG 06/03/2022 14:58:42 NO SIGNIFICANT CHANGES Electronically Signed On 08-31-2022 11:59:16 CDT by Zuleima Ye M.D.
[2022-08-31 11:17] LABS: Basophils Absolute Auto 0.1 K/mm3 (0.0-0.1); Basophils Percent Auto 0.9 % (0.2-1.2); Eosinophils Absolute Auto 0.5 K/mm3 (0-0.3); Eosinophils Percent Auto 6.8 % (0-4.4); Hematocrit 33.9 % (37.0-47.0); Hemoglobin 10.3 g/dL (12.0-15.0); Immature Granulocyte Absolute 0.03 K/mm3 (0.00-0.031); Immature Granulocyte Percent A 0.4 % (0-0.5); Mean Corpuscular HGB Conc 30.4 g/dl (32-36); Mean Corpuscular Hemoglobin 28.7 pg (26-34); Mean Corpuscular Volume 94.4 fl (80-100); Mean Platelet Volume 10.4 fl (7.4-10.4); Monocytes Absolute Auto 0.8 K/mm3 (0.1-0.6); Monocytes Percent Auto 11.1 % (2.6-8.5); Neutrophils Absolute Auto 4.8 K/mm3 (1.3-6.7); Neutrophils Percent Auto 64.8 % (45.5-73.1); Platelet Count Result 202 k/mm3 (150-375); Red Blood Count 3.59 M/mm3 (4.2-5.4); Red Cell Distribution Width 16.1 % (11.5-14.5); White Blood Count 7.5 K/mm3 (4.5-10.0)
[2022-08-31 11:19] LABS: Alanine Aminotransferase 22 U/L (6-35); Alkaline Phosphatase 112 U/L (38-126); Anion Gap 10 mmol/L (8-16); Aspartate Amino Transferase 24 U/L (14-36); Bilirubin,Total 0.7 mg/dL (0.2-1.3); Blood Urea Nitrogen 75 mg/dL (7-17); Calcium 8.5 mg/dL (8.4-10.2); Carbon Dioxide 29 mmol/L (22-30); Chloride 99 mmol/L (98-107); Estimated CRCL calculation 9 ml/min; Estimated Glomerular Filt Rate 7; Glucose 174 mg/dL (65-110); Potassium 4.7 mmol/L (3.4-5.0); Sodium 138 mmol/L (137-145)
[2022-08-31 11:23] LABS: INR 1.4; Prothrombin Time 17.7 Seconds (11.1-14.7)
[2022-08-31 11:24] LABS: Partial Thromboplastin Time 35.2 SECONDS (22.3-36.8)
--- NOTE | 2022-08-31 11:56 | PC.NURSE ---
This RN assisted pt to bathroom with migel cervantes. Pt unable to urinate at this time. Pt refusing straight cath
--- NOTE | 2022-08-31 12:53 | ED.SYNCOPE ---
HPI - Syncope General Chief Complaint: Syncope Stated Complaint: UNRESPONSIVE NOW X4 Time Seen by Provider: 08/31/22 12:04 History of Present Illness HPI narrative: Patient is a 71-year-old female with a history of ESRD on HD (T, Th, S), A-fib on Eliquis, CHF, hypertension, diabetes presenting with an episode of unresponsiveness. Patient states that she got up this morning and went about her normal morning activities. She laid down for a nap after using a breathing treatment. Her was then unable to awaken her. He states that he was shaking her and shouting at her for about 5 minutes. He called EMS who found her unresponsive. She then woke up as they were getting her on the stretcher. She returned to her baseline mental status and has been ANO x4 since then. Patient and her daughter states that she has had these episodes in the past. Patient states that she is just difficult to wake up. States that she was hospitalized for an extended period at [facility] and a rapid was called on her because she was unable to be awoken. Currently, the patient denies any complaints. States that she wants to go home. Related Data Home Medications Medication Instructions Recorded Confirmed fluticasone propionate 50 2 spray intranasal DAILY 03/19/19 08/30/22 mcg/actuation nasal spray,suspension insulin glargine 100 unit/mL (3 30 unit subcut HS 07/04/21 08/30/22 mL) subcutaneous pen (Lantus Solostar U-100 Insulin) insulin aspart U-100 100 unit/mL 10 - 30 sliding scale dose subcut 02/11/22 08/30/22 (3 mL) subcutaneous pen (Novolog TIDWM FlexPen U-100 Insulin aspart) insulin syringe-needle U-100 1 mL #10 ea 03/14/22 08/30/22 31 gauge x 15/64 (BD Veo Insulin Syringe Ultra-Fine) tramadol 50 mg tablet 50 mg PO Q6H PRN Pain 06/20/22 08/30/22 Adult Probiotic 1 cap PO DAILY 06/28/22 08/30/22 gabapentin 600 mg tablet 600 mg PO BID 06/28/22 08/30/22 Allergies Allergy/AdvReac Type Severity Reaction Status Date / Time nickel Allergy Intermediate hives and Verified 08/31/22 10:57 itchy rash nifedipine Allergy Intermediate palpitation Verified 08/31/22 10:57 s Sulfa (Sulfonamide Allergy Intermediate Urticaria Verified 08/31/22 10:57 Antibiotics) and hives diphenhydramine AdvReac Intermediate restless Verified 08/31/22 10:57 legs Qumvnpv-WGW-OzG Reductase AdvReac Intermediate muscle Verified 08/31/22 10:57 Inhibitor cramps [Rkftksu-Yci-Jmq Reductase Inhibitor] CALCIUMCHANNEL AdvReac Intermediate SEE COMMIT Uncoded 08/31/22 10:57 Review of Systems Review of Systems: 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 Chronic diastolic (congestive) heart failure Chronic kidney disease, stage 3 unspecified Chronic kidney disease, stage III (moderate) COPD (chronic obstructive pulmonary disease) Coronary artery disease involving [place] heart without angina pectoris Depression DVT (deep venous thrombosis) ARACELY (generalized anxiety disorder) GERD without esophagitis History of stroke Hypertensive heart disease with heart failure and stage 3 chronic kidney disease Hyponatremia Hypothyroid Left knee DJD Long-term insulin use Peripheral polyneuropathy Pre-ulcerative calluses Sepsis Type 2 diabetes mellitus with hyperglycemia Surgical History Surgical History History of gastrostomy tube placement and removal Family History Family History Father Hypertension Family history of coronary artery disease Sibling Hypertension Family history of coronary artery disease Mother Cerebrovascular accident Other Asthma Depression Family history of Alzheimer's disease Family history of arthritis Family history
--- NOTE | 2022-08-31 14:00 | PC.NURSE ---
Pt attempted to provide urine sample again and was unable. Pt now consenting to straight cath
[2022-08-31 14:38] LABS: Appearance Urine Cloudy (Clear); Bacteria Urine None Seen /hpf; Bilirubin Urine Negative (Negative); Blood Urine 2+ (Negative); Color Urine Dark Yellow (Yellow); Glucose Urine UA Negative (Negative); Ketones Urine Negative (Negative); Leukocyte Esterase Ur 2+ LEU/UL (Negative); Mucus Urine Present /lpf; Need Manual Microscopic Reviewed; Nitrate Urine Positive (Negative); Non Pathogenic Casts 0-2; Protein Urine 2+ mg/dL (Negative); RBC Urine 51-100 /hpf (0-2); Specific Grav Ur 1.014 (1.001-1.035); Squamous Epithelial Cell Urine None seen /hpf (Few); WBC Urine >100 /hpf; pH Urine 6.5 (5.0-9.0)
[2022-08-31 14:40] LABS: Add Urine Microscopic? YES
== END 2022-08-31 17:21 | disposition home or self-care (01) ==
PROVIDERS: Emergency Medicine; Emergency Provider Emergency Medicine; PCP Family Medicine
DX: E11.22 Type 2 diabetes mellitus with diabetic chronic kidney disease (principal); N18.6 End stage renal disease; N39.0 Urinary tract infection, site not specified; I13.2 Hypertensive heart and chronic kidney disease with heart failure and with stage 5 chronic kidney disease, or end stage renal disease; I50.32 Chronic diastolic (congestive) heart failure; E11.42 Type 2 diabetes mellitus with diabetic polyneuropathy; I25.10 Atherosclerotic heart disease of native coronary artery without angina pectoris; K22.70 Barrett's esophagus without dysplasia; K21.9 Gastro-esophageal reflux disease without esophagitis; E03.9 Hypothyroidism, unspecified; Z99.2 Dependence on renal dialysis; Z86.73 Personal history of transient ischemic attack (TIA), and cerebral infarction without residual deficits; Z86.718 Personal history of other venous thrombosis and embolism; Z87.891 Personal history of nicotine dependence; Z79.01 Long term (current) use of anticoagulants; Z79.4 Long term (current) use of insulin
CPT/HCPCS: 36415; 70450; 71045; 80053; 81001; 85025; 85610; 85730; 87086; 87088; 93005; 96365; 99284; J0696

== ENCOUNTER 2022-11-24 14:35 | Emergency (ER) | payer MEDICARE, SELFPAY ==
--- NOTE | ~2022-11-24 | XR_ITS ---
EXAMINATION: XR chest 2V Exam Date/Time: 11/24/2022 15:22 CDT HISTORY: wheezing on right side, decreased lung sounds left Comparison: 08/31/2022. RESULT: Lines, tubes, and devices: Dual-lumen dialysis catheter terminating in the right atrium. Lungs and pleura: No focal consolidation or pneumothorax. Streaky bibasilar atelectasis/scar. Chroni c bilateral mild costophrenic angle blunting. Cardiomediastinal silhouette: Stable. Other: No acute osseous or upper abdominal finding. IMPRESSION: No acute cardiopulmonary process. Small bilateral chronic effusions versus chronic pleural parenchyma l scarring. Reviewed, dictated and finalized at location K. IMPRESSION: No acute cardiopulmonary process. Small bilateral chronic effusions versus chronic condition nurse amy pleural parenchymal scarring.
[2022-11-24 14:53] VITALS: BP 163/58; PULSE 70; RESP 20; TEMP 36.2; O2SAT 94
--- NOTE | 2022-11-24 15:54 | ED.URI ---
HPI - URI/Sore Throat General Chief Complaint: Asthma Stated Complaint: Asthma/Cough Time Seen by Provider: 11/24/22 15:42 Source: patient and RN notes reviewed Mode of arrival: ambulatory Limitations: no limitations History of Present Illness HPI Narrative: Patient presents today complaining of a productive cough with light green sputum x1 week with occasional wheezing and shortness of breath with exertion. She also reports some rhinorrhea. Denies congestion, sore throat, fever, or any additional symptoms. She has been using her albuterol nebulizer treatment an inhaler. She is a dialysis patient. History of asthma and diabetes. Related Data Home Medications Medication Instructions Recorded Confirmed fluticasone propionate 50 2 spray intranasal DAILY 03/19/19 11/24/22 mcg/actuation nasal spray,suspension insulin aspart U-100 100 unit/mL 10 - 30 sliding scale dose subcut 02/11/22 11/24/22 (3 mL) subcutaneous pen (Novolog TIDWM FlexPen U-100 Insulin aspart) insulin syringe-needle U-100 1 mL #10 ea 03/14/22 11/24/22 31 gauge x 15/64 (BD Veo Insulin Syringe Ultra-Fine) tramadol 50 mg tablet 50 mg PO Q6H PRN Pain 06/20/22 11/24/22 Adult Probiotic 1 cap PO DAILY 06/28/22 11/24/22 coenzyme Q10 10 mg capsule (Co 10 mg PO DAILY 10/04/22 11/24/22 Q-10) Allergies Allergy/AdvReac Type Severity Reaction Status Date / Time nickel Allergy Intermediate hives and Verified 11/24/22 15:06 itchy rash nifedipine Allergy Intermediate palpitation Verified 11/24/22 15:06 s Sulfa (Sulfonamide Allergy Intermediate Urticaria Verified 11/24/22 15:06 Antibiotics) and hives diphenhydramine AdvReac Intermediate restless Verified 11/24/22 15:06 legs Ocvxoqg-ANP-AdI Reductase AdvReac Intermediate muscle Verified 11/24/22 15:06 Inhibitor cramps [Tlunidk-Add-Yld Reductase Inhibitor] CALCIUMCHANNEL AdvReac Intermediate SEE COMMIT Uncoded 11/24/22 15:06 Review of Systems Review of Systems: CONSTITUTIONAL: Denies body aches, fever, chills, or sweats. EYES: Denies visual changes, redness, or discharge. ENT: Denies congestion, sore throat, or otalgia.+ rhinorrhea CARDIOVASCULAR: Denies chest pain, palpitations, or edema. RESPIRATORY: + cough, wheezing, shortness of breath GASTROINTESTINAL: Denies abdominal pain, nausea, vomiting, or diarrhea. GENITOURINARY: Denies dysuria or hematuria. SKIN: Denies rash, itching, or wounds. MUSCULOSKELETAL: Denies back pain, joint pain, or myalgia. NEUROLOGIC: Denies headache, numbness, tingling, or weakness. PSYCH: Denies depression or anxiety. [facility] Past Medical History Medical History 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 Chronic diastolic (congestive) heart failure Chronic kidney disease, stage 3 unspecified Chronic kidney disease, stage III (moderate) COPD (chronic obstructive pulmonary disease) Coronary artery disease involving [place] heart without angina pectoris Depression DVT (deep venous thrombosis) ARACELY (generalized anxiety disorder) GERD without esophagitis History of stroke Hypertensive heart disease with heart failure and stage 3 chronic kidney disease Hyponatremia Hypothyroid Left knee DJD Long-term insulin use Peripheral polyneuropathy Pre-ulcerative calluses Sepsis Type 2 diabetes mellitus with hyperglycemia Surgical History Surgical History History of gastrostomy tube placement and removal Family History Family History Father Hypertension Family history of coronary artery disease Sibling Hypertension Family history of coronary artery disease Mother Cerebrovascular accident Other Asthma Depression Family history of Alzheimer's disease Family history of arthritis Family history of cardiovascular disease Family history of lymphoma Fa
== END 2022-11-24 16:05 | disposition home or self-care (01) ==
PROVIDERS: Emergency Provider Nurse Practitioner; PCP Family Medicine
DX: J06.9 Acute upper respiratory infection, unspecified (principal); J45.901 Unspecified asthma with (acute) exacerbation; Z87.891 Personal history of nicotine dependence; K22.70 Barrett's esophagus without dysplasia; K21.9 Gastro-esophageal reflux disease without esophagitis; I13.0 Hypertensive heart and chronic kidney disease with heart failure and stage 1 through stage 4 chronic kidney disease, or unspecified chronic kidney disease; E11.22 Type 2 diabetes mellitus with diabetic chronic kidney disease; N18.30 Chronic kidney disease, stage 3 unspecified; I50.32 Chronic diastolic (congestive) heart failure; Z79.4 Long term (current) use of insulin; J44.9 Chronic obstructive pulmonary disease, unspecified; Z86.718 Personal history of other venous thrombosis and embolism; E03.9 Hypothyroidism, unspecified; E11.42 Type 2 diabetes mellitus with diabetic polyneuropathy; Z86.73 Personal history of transient ischemic attack (TIA), and cerebral infarction without residual deficits
CPT/HCPCS: 71046; 99213; G0463

== ENCOUNTER 2022-12-23 02:12 | Inpatient (IN) | payer MEDICARE, SELFPAY ==
[2022-12-23] VITALS (55 sets, daily range): BP systolic 78–195; BP diastolic 38–148; PULSE 66–92; RESP 12–24; TEMP 35.5–37; O2SAT 90–100; BMI 41.5
--- NOTE | 2022-12-23 | ECHO_ITS ---
Patient Info Name: Gregoria Rae Age: 71 years : 1950 Gender: Female Ht: 64 in Wt: 270 lbs BSA: 2.42 m2 HR: 73 bpm BP: 160 / 68 mmHg Heart Rhythm: Sinus Rhythm Technical Quality: Good Exam Date: 12/23/2022 9:10 AM Exam Location: [facility] Patient Status: Outpatient Admit Date: 12/23/2022 Staff Ordering Physician: Abad Fitzgerald MD Route Sales Person: Stalin Raymundo RDCS Attending Provider: Gwen Jaimes DO Exam Type: CA echo doppler color flow Study Info Indications - CHF exacerbation Complete two-dimensional, color flow and Doppler transthoracic echocardiogram is performed. Summary 1. Complete two-dimensional, color flow and Doppler transthoracic echocardiogram is performed. 2. Mild concentric left ventricular hypertrophy with good systolic function and grade 2 diastolic noncompliance. 3. Left atrial dilation. 4. Calcified mitral valve annulus. 5. Small amount of MR. 6. Mildly sclerotic but not stenotic aortic valve. Left Ventricle Left ventricular chamber dimension is normal. Left ventricular systolic function is normal, estimated at 55-60%. The left ventricular diastolic function is grade II diastolic dysfunction. Right Ventricle Right ventricular chamber dimension is normal. Left Atria Left atrial chamber dimension is moderately enlarged. Right Atria Right atrial chamber dimension is normal. Aortic Valve The aortic valve is trileaflet. There is mild aortic valve sclerosis. Pulmonic Valve The pulmonic valve is not well visualized. Mitral Valve The mitral valve has normal leaflets. There is trace mitral valve regurgitation. The mitral valve annulus is moderately calcified. Tricuspid Valve The tricuspid valve leaflets are normal. Pericardium/Pleural The pericardium appears normal. Aorta The aortic root size at the sinus of Valsalva is normal. Left Ventricular Outflow Tract Name Value Normal LVOT 2D LVOT Diameter 2.0 cm LVOT Doppler LVOT Peak Gradient 3 mmHg LVOT Mean Gradient 2 mmHg LVOT VTI 30 cm LVOT VTI/AV VTI Ratio 0.7 LVOT Stroke Volume 93 ml LVOT CO 5.9 l/min LVOT CI 2.4 l/min/m2 Pulmonic Valve Name Value Normal RVOT Doppler RVOT Peak Gradient 2 mmHg PV Doppler PV Peak Gradient 2 mmHg Mitral Valve Name Value Normal MV Doppler MV Decel [place] 606 cm/s2 MV PHT 73 ms
--- NOTE | ~2022-12-23 | XR_ITS ---
EXAMINATION: XR chest 1V portable DATE: 12/23/2022 05:02 INDICATION: Dyspnea. Cough. TECHNIQUE: A single frontal view of the chest was obtained. COMPARISON: Chest 2 views 11/24/2022, chest CT 04/12/2022 FINDINGS: There are mild airspace opacities in right lower lung zone and left mid and lower lung zone s. No pleural effusion or pneumothorax. The heart size is normal. There is a prominent left paracardi al fat pad. IMPRESSION: 1. Mild airspace opacities in right lower lung zone and left mid and lower lung zones, consistent wit h atelectasis versus pneumonia. Reviewed, dictated and finalized at location A. IMPRESSION: 1. Mild airspace opacities in right lower lung zone and left mid and lower lung zones, consistent with atelectasis versus pneumonia.
--- NOTE | 2022-12-23 04:06 | PC.NURSE ---
EDP Dr. Rodriguez verbally ordered a nebulizer treatment. ED respiratory made aware.
[2022-12-23] MEDS: ALBUTEROL SULFATE NEB 2.5 MG/3 ML INH 1.25 MG INHALATION (04:11)
[2022-12-23] MEDS: IPRATROPIUM BR 0.02% INH SOLN 0.5 MG/2.5 ML VIAL INHALATION ×4 (04:11→20:30)
--- NOTE | 2022-12-23 04:35 | ECG_ITS ---
Measurements Intervals [place] Rate: 72 P: 3 SC: 170 QRS: 3 QRSD: 108 T: 38 QT: 424 QTc: 467 Interpretive Statements SINUS RHYTHM POOR R-WAVE PROGRESSION BORDERLINE ECG COMPARED TO ECG 08/31/2022 10:53:22 NO SIGNIFICANT CHANGES Electronically Signed On 12-23-2022 7:33:56 CDT by Uriel Gillette M.D.
[2022-12-23] MEDS: methylPREDNISolone SOD SUCC 125 MG VIAL IV PUSH (04:48)
[2022-12-23] MEDS: FUROSEMIDE INJ 40 MG/4 ML VIAL IV PUSH (04:49)
[2022-12-23 04:59] LABS: Basophils Absolute Auto 0.1 K/mm3 (0.0-0.1); Eosinophils Absolute Auto 0.9 K/mm3 (0-0.3); Eosinophils Percent Auto 11.8 % (0-4.4); Hematocrit 41.6 % (37.0-47.0); Hemoglobin 13.1 g/dL (12.0-15.0); Immature Granulocyte Absolute 0.03 K/mm3 (0.00-0.031); Immature Granulocyte Percent A 0.4 % (0-0.5); Lymphocytes Percent Auto 23.9 % (18.3-44.2); Mean Corpuscular HGB Conc 31.5 g/dl (32-36); Mean Corpuscular Volume 92.2 fl (80-100); Monocytes Absolute Auto 0.8 K/mm3 (0.1-0.6); Monocytes Percent Auto 10.1 % (2.6-8.5); Neutrophils Absolute Auto 4.2 K/mm3 (1.3-6.7); Neutrophils Percent Auto 52.8 % (45.5-73.1); Platelet Count Result 284 k/mm3 (150-375); Red Blood Count 4.51 M/mm3 (4.2-5.4); Red Cell Distribution Width 17.9 % (11.5-14.5)
[2022-12-23 05:13] LABS: Lactic Acid Reflex 1.2 mmol/L (0.7-2.0)
[2022-12-23 05:14] LABS: Alanine Aminotransferase 24 U/L (6-35); Albumin Level 4.3 g/dL (3.5-5.1); Alkaline Phosphatase 144 U/L (38-126); Anion Gap 11 mmol/L (8-16); Aspartate Amino Transferase 30 U/L (14-36); Bilirubin,Total 0.6 mg/dL (0.2-1.3); Blood Urea Nitrogen 59 mg/dL (7-17); Calcium 8.9 mg/dL (8.4-10.2); Carbon Dioxide 33 mmol/L (22-30); Chloride 94 mmol/L (98-107); Estimated CRCL calculation 11 ml/min; Estimated Glomerular Filt Rate 7; Glucose 81 mg/dL (65-110); Lipase 38 U/L (23-300); Magnesium 1.7 mg/dL (1.6-2.3); Potassium 5.3 mmol/L (3.4-5.0); Sodium 138 mmol/L (137-145)
[2022-12-23 05:24] LABS: NT Pro B Type Natriuretic Pept 3660 pg/mL (19.9-100); Troponin I < 0.012 ng/mL (0.000-0.034)
[2022-12-23 05:38] LABS: INR 1.1; Partial Thromboplastin Time 34.9 SECONDS (22.3-36.8); Prothrombin Time 15.1 Seconds (11.1-14.7)
[2022-12-23 05:40] LABS: Procalcitonin 0.3 ng/mL
--- NOTE | 2022-12-23 05:57 | ED.GENADULT ---
HPI - General Adult General Chief complaint: Asthma Stated complaint: asthma Time Seen by Provider: 12/23/22 04:29 History of Present Illness HPI narrative: All patient is a 71-year-old female who presents emergency department with chief complaint of shortness of breath. Patient has history of end-stage renal disease on dialysis TTS the patient also has history of asthma. Patient reports that she recently was on a trip to [place] and they removed less fluid than normal she also has not been taking Lasix on a completely regular basis patient reports that today she started wheezing and is actually been wheezing over the last several days but tonight it got worse. The patient reports that she is unable to lay flat the patient reports that she feels that she is probably fluid overloaded. Related Data Home Medications Medication Instructions Recorded Confirmed fluticasone propionate 50 2 spray intranasal DAILY 03/19/19 12/06/22 mcg/actuation nasal spray,suspension insulin aspart U-100 100 unit/mL 10 - 30 sliding scale dose subcut 02/11/22 12/06/22 (3 mL) subcutaneous pen (Novolog TIDWM FlexPen U-100 Insulin aspart) insulin syringe-needle U-100 1 mL #10 ea 03/14/22 12/06/22 31 gauge x 15/64 (BD Veo Insulin Syringe Ultra-Fine) Adult Probiotic 1 cap PO DAILY 06/28/22 12/06/22 coenzyme Q10 10 mg capsule (Co 10 mg PO DAILY 10/04/22 12/06/22 Q-10) Allergies Allergy/AdvReac Type Severity Reaction Status Date / Time nickel Allergy Intermediate hives and Verified 12/07/22 13:03 itchy rash nifedipine Allergy Intermediate palpitation Verified 12/07/22 13:03 s Sulfa (Sulfonamide Allergy Intermediate Urticaria Verified 12/07/22 13:03 Antibiotics) and hives diphenhydramine AdvReac Intermediate restless Verified 12/07/22 13:03 legs Eiabdlf-CFT-OaY Reductase AdvReac Intermediate muscle Verified 12/07/22 13:03 Inhibitor cramps [[place]wabel-Kwr-Jdl Reductase Inhibitor] CALCIUMCHANNEL AdvReac Intermediate SEE COMMIT Uncoded 12/07/22 13:03 Review of Systems Review of Systems: A 10 system review of systems was completed on the patient and is negative except for what is stated in the HPI. Nursing and ancillary documentation was reviewed. [facility] Past Medical History Medical History 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 Chronic diastolic (congestive) heart failure Chronic kidney disease, stage 3 unspecified Chronic kidney disease, stage III (moderate) COPD (chronic obstructive pulmonary disease) Coronary artery disease involving [place] heart without angina pectoris Depression DVT (deep venous thrombosis) ARACELY (generalized anxiety disorder) GERD without esophagitis History of stroke Hypertensive heart and CKD, ESRD on dialysis, w CHF Hypertensive heart disease with heart failure and stage 3 chronic kidney disease Hyponatremia Hypothyroid Left knee DJD Long-term insulin use Peripheral polyneuropathy Pre-ulcerative calluses Sepsis Type 2 diabetes mellitus with hyperglycemia Surgical History Surgical History History of gastrostomy tube placement and removal Family History Family History Father Hypertension Family history of coronary artery disease Sibling Hypertension Family history of coronary artery disease Mother Cerebrovascular accident Other Asthma Depression Family history of Alzheimer's disease Family history of arthritis Family history of cardiovascular disease Family history of lymphoma Family history of obesity Family history of seizure disorder Social History Social History Smoking packs per day: 2 Smoking cigarettes per day: 40.0 Years smoked: 30 Smoking pack-years: 60.00 Smoking status: F
--- NOTE | 2022-12-23 07:55 | PM.IMHP ---
H&P: HPI History of Present Illness Date/Time: 12/23/22 07:55 Chief Complaint: Short of breath Narrative: 71-year-old female with history of COPD, diastolic heart failure, CKD, GERD, present ED with a chief complaint of short of breath.? Patient has been having progressive short of breath in past more days, patient has end-stage renal disease on dialysis, patient had trip to [place] and they removed less fluid than normal she also has not been taking Lasix on regularly. Today patient has worsening shortness of breast and the wheezing, therefore patient came to ED for evaluation. Patient also has severe cough with scant sputum. Patient denies chest pain, palpitation, abdomen pain, nausea vomiting or diarrhea. In ED, labs showed normal CBC electrolytes showed a potassium of 5.3 creatinine is 5.7, close to baseline, BNP was 3660 troponin was less than 0.012, chest x-ray showed opacity in right lower lobe. Patient received Lasix, methylprednisolone, bronchodilators, patient still has significant dyspnea. We admit patient for further evaluation and management. Review of Systems Review of Systems: ROS negative except above PMFSH Past Medical History Medical History 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 Chronic diastolic (congestive) heart failure Chronic kidney disease, stage 3 unspecified Chronic kidney disease, stage III (moderate) COPD (chronic obstructive pulmonary disease) Coronary artery disease involving [place] heart without angina pectoris Depression DVT (deep venous thrombosis) ESRD on dialysis ARACELY (generalized anxiety disorder) GERD without esophagitis History of stroke Hypertensive heart and CKD, ESRD on dialysis, w CHF Hypertensive heart disease with heart failure and stage 3 chronic kidney disease Hyponatremia Hypothyroid Left knee DJD Long-term insulin use Peripheral polyneuropathy Pre-ulcerative calluses Sepsis Type 2 diabetes mellitus with hyperglycemia Surgical History Surgical History History of gastrostomy tube placement and removal Family History Family History Father Hypertension Family history of coronary artery disease Sibling Hypertension Family history of coronary artery disease Mother Cerebrovascular accident Other Asthma Depression Family history of Alzheimer's disease Family history of arthritis Family history of cardiovascular disease Family history of lymphoma Family history of obesity Family history of seizure disorder Social History Social History Smoking packs per day: 2 Smoking cigarettes per day: 40.0 Years smoked: 30 Smoking pack-years: 60.00 Smoking status: Former smoker Tobacco type: cigarettes Second hand tobacco smoke exposure: No Smoking end date: 05/07/89 Alcohol intake: never Drinks per week: 1 Substance use: never Substance use type: does not use Lack of Transportation: No Lack of Food: Never True Current Housing: I Have Housing Concerned About Future Housing: No Difficulty Paying Gas/Electric Bills: No Difficulty Paying for Meds: No Currently Unemployed: No Education: Bachelor's Degree Difficulty w/ Childcare or Family Care: No Living arrangements: with family Occupation/Education: retired Gender identity (if verbalized by the patient): Female Spiritual care concerns: No Meds Home Medications and Allergies Home Medications Medication Instructions Recorded Confirmed Type fluticasone propionate 50 2 spray intranasal DAILY 03/19/19 12/23/22 History mcg/actuation nasal spray,suspension insulin syringe-needle U-100 1 mL #100 ea 10/14/21 12/06/22 Rx 31 gauge x 5/16 (BD Insulin Syringe Ultra-Fine) insulin aspart U-100 100 unit/mL 10 - 30 sliding scal
[2022-12-23 08:13] LABS: Troponin I < 0.012 ng/mL (0.000-0.034)
--- NOTE | 2022-12-23 09:01 | ADMGEN ---
This patient, Gregoria Rae, was admitted to IMU Room 212-01. Patient/family oriented to hospital policies and general routines including ID bracelet, bed and alarms, visiting hours, pain management, procedures, bathroom and other care routines, personal items, smoking policy, room service/diet, and visiting hours. Information on how to activate the Rapid Response Team has been discussed. Patient/Family are encouraged to report perceived risks to care and to ask questions if they do not understand what they are told or what they should do.
[2022-12-23] MEDS: ALBUTEROL SULFATE NEB 2.5 MG/3 ML INH INHALATION ×3 (09:27→20:30)
[2022-12-23] MEDS: FLUTICASONE/SALMETEROL 45-21 MCG INHALER 1 PUFF 2 PUFF INHALATION ×2 (09:30→20:30)
[2022-12-23] MEDS: FUROSEMIDE INJ 40 MG/4 ML VIAL 80 MG IV PUSH (09:49)
[2022-12-23] MEDS: AZITHROMYCIN 500 MG/NS 250 ML 500 MG/250 ML BAG 250 MG IVPB (09:50)
[2022-12-23] MEDS: cefTRIAXone 2 GM/NS 100 ML 2 GM/100 ML BAG IVPB (09:51)
[2022-12-23 11:21] LABS: Appearance Urine Turbid (Clear); Bacteria Urine 4+ /hpf; Bilirubin Urine Negative (Negative); Blood Urine Trace (Negative); Color Urine Yellow (Yellow); Glucose Urine UA Negative (Negative); Ketones Urine Negative (Negative); Leukocyte Esterase Ur 3+ LEU/UL (Negative); Nitrate Urine Negative (Negative); Non Pathogenic Casts 0-2; Protein Urine 2+ mg/dL (Negative); Specific Grav Ur 1.011 (1.001-1.035); Squamous Epithelial Cell Urine Few /hpf (Few); Urobilinogen Urine 0.2 mg/dL (<2.0); WBC Urine 51-100 /hpf
[2022-12-23 11:30] LABS: Hemoglobin A1C 7.5 % (<5.7)
[2022-12-23 11:31] LABS: Add Urine Microscopic? YES
--- NOTE | 2022-12-23 11:45 | PC.NURSE ---
Patient transferred to dialysis room via bed without issue.
--- NOTE | 2022-12-23 13:17 | PM.CNNEP ---
Assessment and Plan Assessment and plan (1) End stage renal disease: Code(s): N18.6 - End stage renal disease Status: Acute Assessment and Plan: The patient has end-stage renal disease. She is due for dialysis today. This is due to diabetes and hypertension. She has significant volume overload. This is by chest x-ray and also by exam. Her potassium is also a little high. Dialysis is underway. We are removing fluid and removing potassium. She is already a little bit better. Hopefully she can go home soon (2) Asthma-COPD overlap syndrome: Code(s): J44.9 - Chronic obstructive pulmonary disease, unspecified Status: Acute Assessment and Plan: The patient had some wheezing. This seems to be better as she is moving air well now. She is on steroids and inhalers for this aspect of her shortness of breath. (3) Type 2 diabetes mellitus with hyperglycemia: Code(s): E11.65 - Type 2 diabetes mellitus with hyperglycemia Status: Chronic Assessment and Plan: She is on Accu-Cheks and sliding-scale insulin. Hospitalists managing this. (4) Coronary artery disease involving [place] heart without angina pectoris: Code(s): I25.10 - Atherosclerotic heart disease of [place] coronary artery without angina pectoris Status: Acute Assessment and Plan: The patient is not having any chest pain. (5) 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: Code(s): K22.70 - 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 Status: Acute Assessment and Plan: The patient is on pantoprazole (6) Anemia: Code(s): D64.9 - Anemia, unspecified Status: Acute Assessment and Plan: Hemoglobin is 13.1. No need for RADHA's. (7) Renal osteodystrophy: Code(s): N25.0 - Renal osteodystrophy Status: Acute Assessment and Plan: Will check a phosphorus level in the morning (8) Atrial fibrillation: Code(s): I48.91 - Unspecified atrial fibrillation Status: Chronic Assessment and Plan: She is on Eliquis for this. Currently in sinus rhythm. History of Present Illness Reason for Consult Consult date: 12/23/22 Chief Complaint Chief complaint: Fluid Overload/ESRD/Asthma History of Present Illness Narrative: Gregoria is a very pleasant 71-year-old lady who has multiple medical problems including end-stage renal disease on dialysis Tuesdays and Saturdays, hypertension, asthma, COPD, Gongora's esophagus, diastolic congestive heart failure, coronary disease, history of stroke, diabetes, hypertension, peripheral neuropathy, degenerative joint disease, hypothyroidism, anxiety, depression, and Barretts esophagus without dysplasia. The patient has been getting hemodialysis. She has been doing fairly well in the last few months. Does gain a lot of weight between treatments however dialysis has been able to keep up with the fluid gains. Her asthma has been doing fairly well to as she has been following with Dr. Caldwell in the office. A few weeks ago the patient went to [facility] with her daughter. She thinks she got into a little too much fluid while she was there. She did go to dialysis at [facility] but she thinks they did not keep up with her fluid gains. Upon return to [facility] she was found to have lots of extra fluid on. They took off what they could in dialysis. In the last few days the patient has been more short of breath. She has been wheezing every day. She has been using her inhalers more often. Yesterday the patient was quite short of breath this morning she was so short of breath she could barely make it to her inhaler across the house. So she decided to come to the ER. In the ER she was found to have wheezing and shortness of breath. Chest x-ray did show some fluid. She had some a edema on exam. The gave her inhalers and steroids and also some Lasix. She was a little bit better but still short of breath. They d
--- NOTE | 2022-12-23 13:18 | P.PNCROSS_ITS ---
Event Note Event Note Event Note: Patient is on dialysis and tolerating it well. Her blood pressure is doing wel l. We are taking about 5L off today. She was seen at 12:45 p.m.
[2022-12-23 15:40] LABS: Hepatitis B Surface Antigen Negative (Negative)
[2022-12-23 15:57] LABS: Hepatitis B Surface Anti Res Negative
[2022-12-23 16:40] LABS: Glucose Point of Care 291 mg/dl (65-105)
[2022-12-23] MEDS: methylPREDNISolone SOD SUCC 125 MG VIAL 60 MG IV PUSH ×2 (16:57→21:32)
[2022-12-23] MEDS: HEPARIN SODIUM 5,000 UNITS/ML VIAL 5000 UNITS SUB-Q ×2 (16:57→21:30)
[2022-12-23] MEDS: INSULIN ASPART (*BKC) 100 UNITS/ML SUB-Q (16:58)
[2022-12-23 19:58] LABS: Glucose Point of Care > 500 mg/dl (65-105)
[2022-12-23] MEDS: INSULIN GLARGINE (*BKC) 100 UNITS/ML SUB-Q (20:32)
[2022-12-23 21:11] LABS: Glucose Point of Care 426 mg/dl (65-105)
[2022-12-23] MEDS: INSULIN ASPART (*BKC) 100 UNITS/ML 8 UNITS SUB-Q (21:25)
[2022-12-24] VITALS (20 sets, daily range): BP systolic 133–152; BP diastolic 50–113; PULSE 67–78; RESP 18–22; TEMP 36–36.6; O2SAT 96–99
[2022-12-24 00:34] LABS: Glucose Point of Care 399 mg/dl (65-105)
[2022-12-24] MEDS: INSULIN GLARGINE (*BKC) 100 UNITS/ML 27 UNITS SUB-Q (01:23)
[2022-12-24] MEDS: IPRATROPIUM BR 0.02% INH SOLN 0.5 MG/2.5 ML VIAL INHALATION ×3 (02:30→14:27)
[2022-12-24] MEDS: ALBUTEROL SULFATE NEB 2.5 MG/3 ML INH INHALATION ×3 (02:30→14:27)
[2022-12-24] MEDS: LEVOTHYROXINE SODIUM 100 MCG TABLET PO (06:32)
[2022-12-24] MEDS: LEVOTHYROXINE SODIUM 75 MCG TABLET PO (06:32)
[2022-12-24] MEDS: methylPREDNISolone SOD SUCC 125 MG VIAL 60 MG IV PUSH (06:32)
[2022-12-24] MEDS: rOPINIRole HCL 1 MG TABLET 2 MG PO (06:32)
--- NOTE | 2022-12-24 07:51 | PC.NURSE ---
Dr. Fitzgerald notified of blood glucose of 513.
[2022-12-24 07:57] LABS: Albumin Level 4.3 g/dL (3.5-5.1); Anion Gap 21 mmol/L (8-16); Blood Urea Nitrogen 48 mg/dL (7-17); Carbon Dioxide 24 mmol/L (22-30); Chloride 84 mmol/L (98-107); Estimated CRCL calculation 13 ml/min; Estimated Glomerular Filt Rate 10; Glucose 534 mg/dL (65-110); Phosphorus 6.1 mg/dL (2.5-4.5); Potassium 5.4 mmol/L (3.4-5.0); Sodium 129 mmol/L (137-145)
--- NOTE | 2022-12-24 08:17 | PM.IMPN ---
Progress Note: A&P Assessment and Plan (1) Acute on chronic diastolic (congestive) heart failure: Code(s): I50.33 - Acute on chronic diastolic (congestive) heart failure Status: Acute (2) ESRD on dialysis: Code(s): N18.6 - End stage renal disease; Z99.2 - Dependence on renal dialysis Status: Acute (3) DVT of lower extremity (deep venous thrombosis): Code(s): I82.409 - Acute embolism and thrombosis of unspecified deep veins of unspecified lower extremity Status: Acute (4) COPD exacerbation: Code(s): J44.1 - Chronic obstructive pulmonary disease with (acute) exacerbation Status: Acute (5) Community acquired pneumonia due to Haemophilus influenzae: Code(s): J14 - Pneumonia due to Hemophilus influenzae Status: Acute (6) Uncontrolled hypertension: Code(s): I10 - Essential (primary) hypertension Status: Acute (7) Anemia: Code(s): D64.9 - Anemia, unspecified Status: Acute (8) GERD without esophagitis: Code(s): K21.9 - Gastro-esophageal reflux disease without esophagitis Status: Acute (9) Type 2 diabetes mellitus with hyperglycemia: Code(s): E11.65 - Type 2 diabetes mellitus with hyperglycemia Status: Chronic Plan Acute on chronic diastolic heart failure Likely resulting from fluid overload because of missing dialysis Patient has grade 2 diastolic dysfunction on echocardiogram April 2022 Started Lasix 80 mg t.i.d. IV Fluid restriction Consult livestock farmworker for dialysis. 5 L fluid was removed, discontinue IV Lasix continue Lasix 80 mg b.i.d. p.o. at home does End-stage renal disease on dialysis, fluid overload Patient states that last fluid was removed during dialysis impossible days, and patient did not take enough diuretic medication X-ray shows pulmonary congestion, a DVT BMP Elevated bUN creatinine, potassium 5.3 Consult livestock farmworker for dialysis Follow-up BMP Asthma/COPD exacerbation, community-acquired pneumonia Possible resulting from pneumonia, chest x-ray showed opacity in right lower lobe., possible community-acquired pneumonia Start azithromycin ceftriaxone IV Continue home fluticasone, salmeterol, Singulair 10 mg daily p.o. Start DuoNeb scheduled, albuterol nebulizer p.r.n., methylprednisolone IV O2 therapy as needed Dyspnea improves, honest some scattered within the right lung, start methylprednisolone IV because of uncontrolled diabetes Paroxysmal AFib Continue Eliquis 2.5 mg b.i.d. p.o., amiodarone 200 mg daily p.o. Uncontrolled type 2 diabetes Increased lantus to 50 from 30 units q.h.s. And aspart 7 unit a.c. q.h.s. Sliding scale a.c. q.h.s. Glucose 500 in the morning, likely resulting from steroid use, start aspart, repeat glucose 183 Adjust medication accordingly Discontinue methylprednisolone IV GERD Continue Protonix for heparin drip review Patient may stay more than 2 minutes in hospital Patient requests us to discharge her today, I have expressed my concern about the her uncontrolled glucose and fluid overload event though significant improvement of her dialysis. Patient states she understands the risks and she can manage them herself at home, and she insists she be discharged today. Subjective Date/time seen: 12/24/22 08:17 Interval history: Patient feels dyspnea is improving. Underwent dialysis yesterday. Uncontrolled diabetes, glucose 500 in the morning. Patient denies chest pain, abdomen pain, nausea vomiting diarrhea. Patient requests to be discharged home today because chest birthday tomorrow and she wants to go home to prepare for her birthday Exam Narrative: GENERAL: Morbid obesity in no acute distress. Well-nourished. - EYES: EOMI. Anicteric. - HENT: Moist mucous membranes. - LUNGS: C scattered wheezing in the right lung, tachypnea rhonchi, no rales. - CARDIOVASCULAR: Regular rate and rhythm. No murmur. No JVD. - ABDOMEN: Soft, non-tender and non
[2022-12-24 08:24] LABS: Glucose Point of Care > 500 mg/dl (65-105)
[2022-12-24] MEDS: cefTRIAXone 2 GM/NS 100 ML 2 GM/100 ML BAG IVPB (08:34)
[2022-12-24] MEDS: AZITHROMYCIN 500 MG/NS 250 ML 500 MG/250 ML BAG 250 MG IVPB (08:35)
[2022-12-24] MEDS: PANTOPRAZOLE 40 MG TABLET PO (08:52)
[2022-12-24] MEDS: METOPROLOL SUCCINATE EXT REL 50 MG TABCR PO (08:52)
[2022-12-24] MEDS: APIXABAN 2.5 MG TABLET PO (08:53)
[2022-12-24] MEDS: MONTELUKAST SODIUM 10 MG TABLET PO (08:53)
[2022-12-24] MEDS: INSULIN ASPART (*BKC) 100 UNITS/ML 20 UNITS SUB-Q ×2 (08:53→11:55)
[2022-12-24] MEDS: CALCIUM ACETATE 667 MG TABLET PO (08:53)
[2022-12-24 09:03] LABS: Basophils Percent Auto 0.3 % (0.2-1.2); Hematocrit 42.3 % (37.0-47.0); Hemoglobin 13.1 g/dL (12.0-15.0); Immature Granulocyte Absolute 0.04 K/mm3 (0.00-0.031); Immature Granulocyte Percent A 0.6 % (0-0.5); Lymphocytes Absolute Auto 0.69 K/mm3 (0.9-3.2); Lymphocytes Percent Auto 9.8 % (18.3-44.2); Mean Corpuscular Hemoglobin 28.7 pg (26-34); Mean Corpuscular Volume 92.8 fl (80-100); Mean Platelet Volume 10.3 fl (7.4-10.4); Monocytes Absolute Auto 0.3 K/mm3 (0.1-0.6); Monocytes Percent Auto 3.6 % (2.6-8.5); Neutrophils Percent Auto 85.7 % (45.5-73.1); Platelet Count Result 280 k/mm3 (150-375); Red Blood Count 4.56 M/mm3 (4.2-5.4); Red Cell Distribution Width 18.3 % (11.5-14.5)
[2022-12-24] MEDS: UMECLIDINIUM BROMIDE 62.5 MCG ELLIPTA 1 PUFF INHALATION (09:12)
[2022-12-24] MEDS: FLUTICASONE/SALMETEROL 45-21 MCG INHALER 1 PUFF 2 PUFF INHALATION (09:13)
[2022-12-24] MEDS: FUROSEMIDE 80 MG TABLET PO (09:14)
[2022-12-24] MEDS: GABAPENTIN 300 MG CAPSULE 600 MG PO (09:53)
[2022-12-24 11:48] LABS: Glucose Point of Care > 500 mg/dl (65-105)
--- NOTE | 2022-12-24 11:55 | PC.NURSE ---
Dr. Fitzgerald notified of blood glucose. New orders given.
--- NOTE | 2022-12-24 14:07 | PM.PNNEP ---
Progress Note: A&P Assessment and Plan (1) End stage renal disease: Code(s): N18.6 - End stage renal disease Status: Acute Assessment and Plan: The patient has end-stage renal disease. This is due to diabetes and hypertension. Patient had dialysis yesterday. Volume overload is improved. She still has a component of her reversible airways disease though. (2) Asthma-COPD overlap syndrome: Code(s): J44.9 - Chronic obstructive pulmonary disease, unspecified Status: Acute Assessment and Plan: The patient had some wheezing. This seems to be better as she is moving air well now. She is on steroids and inhalers for this aspect of her shortness of breath. Sugars are high from the steroids. (3) Type 2 diabetes mellitus with hyperglycemia: Code(s): E11.65 - Type 2 diabetes mellitus with hyperglycemia Status: Chronic Assessment and Plan: She is on Accu-Cheks and sliding-scale insulin. Hospitalists managing this. (4) Coronary artery disease involving [place] heart without angina pectoris: Code(s): I25.10 - Atherosclerotic heart disease of [place] coronary artery without angina pectoris Status: Acute Assessment and Plan: The patient is not having any chest pain. (5) 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: Code(s): K22.70 - 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 Status: Acute Assessment and Plan: The patient is on pantoprazole (6) Anemia: Code(s): D64.9 - Anemia, unspecified Status: Acute Assessment and Plan: Hemoglobin is 13.1. No need for RADHA's. (7) Renal osteodystrophy: Code(s): N25.0 - Renal osteodystrophy Status: Acute Assessment and Plan: Phosphorus level 6.1. Will start sevelamer (8) Atrial fibrillation: Code(s): I48.91 - Unspecified atrial fibrillation Status: Chronic Assessment and Plan: She is on Eliquis for this. Currently in sinus rhythm. Subjective Date/time seen: 12/24/22 14:07 Interval history: Gregoria is feeling a little bit better today. Less short of breath. 5L removed on dialysis yesterday. Review of Systems Cardiovascular: Cardiovascular: Reports no additional cardiovascular complaints Respiratory: Respiratory: Reports no additional respiratory complaints Gastrointestinal: Gastrointestinal: Reports no additional gastrointestinal complaints Genitourinary: Genitourinary: Reports no additional female genitourinary complaints Exam Narrative: WDWN in NAD skin no rash head ncat lungs bilateral mild wheezing. cor reg no rub abd BS+ nontender and soft ext no edema. Objective Data Vital Signs Vital Signs: Vital Signs - 24 hr 12/23/22 16:42 12/23/22 16:00 12/23/22 16:00 Temperature 98.2 F Pulse Rate 73 70 Respiratory Rate 18 Blood Pressure 111/81 Pulse Oximetry 97 94 Oxygen Delivery Room Air 12/23/22 18:00 12/23/22 20:00 12/23/22 14:20 Temperature 97.1 F L Pulse Rate 69 66 74 Respiratory Rate 18 Blood Pressure 155/56 H 139/54 L Pulse Oximetry 92 Oxygen Delivery 12/23/22 14:40 12/23/22 15:00 12/23/22 15:20 Temperature Pulse Rate 71 69 81 Respiratory Rate Blood Pressure 179/85 H 180/46 H 171/83 H Pulse Oximetry Oxygen Delivery 12/23/22 15:43 12/23/22 16:00 12/23/22 20:30 Temperature 97.4 F L Pulse Rate 80 79 69 Respiratory Rate 17 20 Blood Pressure 195/78 H 182/96 H Pulse Oximetry Oxygen Delivery 12/23/22 21:35 12/23/22 20:45 12/24/22 00:00 Temperature 97.8 F Pulse Rate 69 67 71 Respiratory Rate 20 20 Blood Pressure 152/55 H Pulse Oximetry 94 99 Oxygen Delivery Room Air 12/23/22 20:00 12/23/22 22:00 12/24/22 00:00 Temperature Pulse Rate 89 67 70 Respiratory Rate Blood Pressure Pulse Oximetry Oxygen Delivery 12/24/22 02:00 12/24/22 02:30 12/24/22 02:40 Temperature Pulse Rate 67 76 67 Respiratory Rat
--- NOTE | 2022-12-24 14:10 | PC.NURSE ---
Dr. Fitzgerald updated on blood glucose level. Recheck in an hour.
[2022-12-24 14:22] LABS: Glucose Point of Care 305 mg/dl (65-105)
[2022-12-24 15:04] LABS: Glucose Point of Care 183 mg/dl (65-105)
--- NOTE | 2022-12-24 15:12 | PC.NURSE ---
Dr. Fitzgerald updated on blood glucose level.
[2022-12-24 16:57] LABS: Glucose Point of Care 144 mg/dl (65-105)
[2022-12-24 17:10] LABS: Anion Gap 15 mmol/L (8-16); Blood Urea Nitrogen 61 mg/dL (7-17); Calcium 9.6 mg/dL (8.4-10.2); Carbon Dioxide 25 mmol/L (22-30); Chloride 93 mmol/L (98-107); Estimated CRCL calculation 11 ml/min; Estimated Glomerular Filt Rate 8; Glucose 131 mg/dL (65-110); Potassium 5.5 mmol/L (3.4-5.0); Sodium 133 mmol/L (137-145)
--- NOTE | 2022-12-24 17:42 | PM.DS ---
DS: Admitting Diagnosis Discharge Date 12/22 Admitting Diagnosis (1) Acute on chronic diastolic (congestive) heart failure: ?Code(s): I50.33 - Acute on chronic diastolic (congestive) heart failure ?Status:?Acute (2) ESRD on dialysis: ?Code(s): N18.6 - End stage renal disease; Z99.2 - Dependence on renal dialysis ?Status:?Acute (3) DVT of lower extremity (deep venous thrombosis): ?Code(s): I82.409 - Acute embolism and thrombosis of unspecified deep veins of unspecified lower extremity ?Status:?Acute (4) COPD exacerbation: ?Code(s): J44.1 - Chronic obstructive pulmonary disease with (acute) exacerbation ?Status:?Acute (5) Community acquired pneumonia due to Haemophilus influenzae: ?Code(s): J14 - Pneumonia due to Hemophilus influenzae ?Status:?Acute (6) Uncontrolled hypertension: ?Code(s): I10 - Essential (primary) hypertension ?Status:?Acute (7) Anemia: ?Code(s): D64.9 - Anemia, unspecified ?Status:?Acute (8) GERD without esophagitis: ?Code(s): K21.9 - Gastro-esophageal reflux disease without esophagitis ?Status:?Acute (9) Type 2 diabetes mellitus with hyperglycemia: ?Code(s): E11.65 - Type 2 diabetes mellitus with hyperglycemia ?Status:?Chronic DS: Discharge Diagnosis Discharge Diagnosis (1) Acute on chronic diastolic (congestive) heart failure: Code(s): I50.33 - Acute on chronic diastolic (congestive) heart failure Status: Acute (2) ESRD on dialysis: Code(s): N18.6 - End stage renal disease; Z99.2 - Dependence on renal dialysis Status: Acute (3) DVT of lower extremity (deep venous thrombosis): Code(s): I82.409 - Acute embolism and thrombosis of unspecified deep veins of unspecified lower extremity Status: Acute (4) COPD exacerbation: Code(s): J44.1 - Chronic obstructive pulmonary disease with (acute) exacerbation Status: Acute (5) Community acquired pneumonia due to Haemophilus influenzae: Code(s): J14 - Pneumonia due to Hemophilus influenzae Status: Acute (6) Uncontrolled hypertension: Code(s): I10 - Essential (primary) hypertension Status: Acute (7) Anemia: Code(s): D64.9 - Anemia, unspecified Status: Acute (8) GERD without esophagitis: Code(s): K21.9 - Gastro-esophageal reflux disease without esophagitis Status: Acute (9) Type 2 diabetes mellitus with hyperglycemia: Code(s): E11.65 - Type 2 diabetes mellitus with hyperglycemia Status: Chronic DS: Summary Hospital Course Hospital Course: 71-year-old female with history of COPD, diastolic heart failure, CKD, GERD, present ED with a chief complaint of short of breath.? Patient has been having progressive short of breath in past more days, patient has end-stage renal disease on dialysis, patient had trip to [place] and they removed less fluid than normal she also has not been taking Lasix on regularly.? Today patient has worsening shortness of breast and the wheezing, therefore patient came to ED for evaluation.? Patient also has severe cough with scant sputum.? Patient denies chest pain, palpitation, abdomen pain, nausea vomiting or diarrhea.? In ED, labs showed normal CBC electrolytes showed a potassium of 5.3 creatinine is 5.7, close to baseline, BNP was 3660 troponin was less than 0.012,? chest x-ray showed opacity in right lower lobe.? Patient received Lasix, methylprednisolone, bronchodilators, patient still has significant dyspnea.? We admit patient for further evaluation and management. THE FOLLOWING MEDICAL ISSUES HAVE BEEN ADDRESSED IN THE HOSPITAL Acute on chronic diastolic heart failure Likely resulting from fluid overload because of missing dialysis Patient has grade 2 diastolic dysfunction on echocardiogram April 2022 Started Lasix 80 mg t.i.d. IV Fluid restriction Consult shaker tender for dialysis. 5 L fluid was removed, discontinue IV Lasix con
[2022-12-24] MEDS: SODIUM ZIRCONIUM CYCLOSILICATE 10 GM POWD.PACK 20 GM PO (17:45)
[2022-12-27 18:09] LABS: Hepatitis B Core Ab Total Nonreactive (Nonreactive)
== END 2022-12-24 18:13 | disposition home or self-care (01) | DRG 640 ==
LOC: ANHED 06:01 → ANHIMU 08:09
PROVIDERS: Internal Medicine Nephrology; Admitting Provider Internal Medicine; Emergency Provider Emergency Medicine; PCP Family Medicine; Visit Provider Hospitalist
DX: E87.79 Other fluid overload (principal); I50.33 Acute on chronic diastolic (congestive) heart failure; N18.6 End stage renal disease; J18.9 Pneumonia, unspecified organism; I13.2 Hypertensive heart and chronic kidney disease with heart failure and with stage 5 chronic kidney disease, or end stage renal disease; J44.1 Chronic obstructive pulmonary disease with (acute) exacerbation; J44.0 Chronic obstructive pulmonary disease with (acute) lower respiratory infection; Z91.158 Patient's noncompliance with renal dialysis for other reason; Z99.2 Dependence on renal dialysis; Z91.148 Patient's other noncompliance with medication regimen for other reason; D64.9 Anemia, unspecified; I25.10 Atherosclerotic heart disease of native coronary artery without angina pectoris; N25.0 Renal osteodystrophy; K22.70 Barrett's esophagus without dysplasia; K21.9 Gastro-esophageal reflux disease without esophagitis; E11.65 Type 2 diabetes mellitus with hyperglycemia; F41.1 Generalized anxiety disorder; E03.9 Hypothyroidism, unspecified; E11.42 Type 2 diabetes mellitus with diabetic polyneuropathy; I48.0 Paroxysmal atrial fibrillation; Z86.73 Personal history of transient ischemic attack (TIA), and cerebral infarction without residual deficits; Z87.891 Personal history of nicotine dependence; Z79.4 Long term (current) use of insulin; Z86.718 Personal history of other venous thrombosis and embolism; Z79.01 Long term (current) use of anticoagulants
CPT/HCPCS: 36415; 71045; 80048; 80053; 80069; 81001; 82948; 83036; 83605; 83690; 83735; 83880; 84145; 84484; 85025; 85610; 85730; 86704; 86706; 87077; 87086; 87186; 87340; 93005; 93306; 94640; 96365; 96366; 96375; 96376; 99285; A9270; G0257; G0378; J0456; J0696; J1644; J1815; J1940; J2930; J7030

== ENCOUNTER 2023-02-27 10:50 | Inpatient (IN) | payer MEDICARE, SELFPAY ==
[2023-02-27] VITALS (23 sets, daily range): BP systolic 121–162; BP diastolic 42–108; PULSE 65–86; RESP 15–20; TEMP 36.3–36.6; O2SAT 90–100; BMI 40.5
--- NOTE | ~2023-02-27 | XR_ITS ---
XR chest 2V 02/27/2023 13:09 Indication: Asthma. Cough. Dyspnea. Procedure: 2 view chest Comparison: Comparison to multiple prior studies sequentially, with oldest reviewed study dated 06/03. Findings: Borderline heart size. Mild interstitial edema. Small pleural effusions. No pneumothorax. N o acute osseous abnormality. Impression: 1: Borderline heart size with mild interstitial edema. Reviewed, dictated and finalized at location L. Impression: 1: Borderline heart size with mild interstitial edema.
--- NOTE | 2023-02-27 13:24 | ECG_ITS ---
Measurements Intervals [place] Rate: 70 P: 28 FL: 174 QRS: -32 QRSD: 106 T: 46 QT: 442 QTc: 478 Interpretive Statements SINUS RHYTHM MARKED LEFT AXIS DEVIATION [QRS AXIS < -30] PATTERN CONSISTENT WITH PULMONARY DISEASE COMPARED TO ECG 12/23/2022 04:56:54 LEFT-AXIS DEVIATION NOW PRESENT Electronically Signed On 02-27-2023 19:59:13 CDT by Bri Peña M.D.
--- NOTE | 2023-02-27 13:25 | ED.ASTHMA ---
HPI - Asthma General Chief Complaint: Asthma Stated Complaint: asthma Time Seen by Provider: 02/27/23 12:08 History of Present Illness HPI Narrative: Patient is a 72-year-old female with a history of ESRD on dialysis Sunday, CHF, asthma/COPD presenting with shortness of breath. Patient states that for the last week or so she has been feeling wheezy and short of breath. States that she initially had a productive cough but this has improved. She has been using her nebulizer which Helps temporarily. States that she cannot lie flat due to shortness of breath but this is pretty normal for her. States that she does not feel volume overloaded. No leg swelling. No chest pain. States that she feels that this is strictly her asthma. Often happens with the change of seasons. No fevers or chills, abdominal pain, nausea or vomiting. No further complaints. Related Data Home Medications Medication Instructions Recorded Confirmed fluticasone propionate 50 2 spray intranasal DAILY 03/19/19 03/05/23 mcg/actuation nasal spray,suspension insulin aspart U-100 100 unit/mL sliding scale dose subcut 02/11/22 03/05/23 (3 mL) subcutaneous pen (Novolog TIDWM FlexPen U-100 Insulin aspart) coenzyme Q10 10 mg capsule (Co 10 mg PO DAILY 10/04/22 03/05/23 Q-10) furosemide 80 mg tablet (Lasix) 80 mg PO BID 12/23/22 03/05/23 insulin glargine 100 unit/mL (3 28 unit subcut HS 01/24/23 03/05/23 mL) subcutaneous pen (Lantus Solostar U-100 Insulin) albuterol sulfate 90 mcg/actuation 2 puff inhalation QID PRN 02/27/23 03/05/23 aerosol inhaler (Ventolin HFA) Shortness Of Breath Or Wheezing calcium acetate(phosphat bind) 667 667 mg PO TID 02/27/23 03/05/23 mg capsule fluticasone 500 mcg-salmeterol 50 1 inh inhalation HS 02/27/23 03/05/23 mcg/dose blistr powdr for inhalation (Wixela Inhub) Allergies Allergy/AdvReac Type Severity Reaction Status Date / Time nickel Allergy Intermediate hives and Verified 03/05/23 14:11 itchy rash nifedipine Allergy Intermediate palpitation Verified 03/05/23 14:11 s Sulfa (Sulfonamide Allergy Intermediate Urticaria Verified 03/05/23 14:11 Antibiotics) and hives diphenhydramine AdvReac Intermediate restless Verified 03/05/23 14:11 legs Uteylwr-YDZ-SqP Reductase AdvReac Intermediate muscle Verified 03/05/23 14:11 Inhibitor cramps [Hfpomqx-Lhs-Kiy Reductase Inhibitor] CALCIUMCHANNEL AdvReac Intermediate SEE COMMIT Uncoded 03/05/23 14:11 Review of Systems Review of Systems: 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 Chronic diastolic (congestive) heart failure Chronic kidney disease, stage 3 unspecified Chronic kidney disease, stage III (moderate) COPD (chronic obstructive pulmonary disease) Coronary artery disease involving [place] heart without angina pectoris Depression DVT (deep venous thrombosis) ESRD on dialysis ARACELY (generalized anxiety disorder) GERD without esophagitis History of stroke Hypertensive heart and CKD, ESRD on dialysis, w CHF Hypertensive heart disease with heart failure and stage 3 chronic kidney disease Hyponatremia Hypothyroid Left knee DJD Long-term insulin use Peripheral polyneuropathy Pre-ulcerative calluses Sepsis Type 2 diabetes mellitus with hyperglycemia Surgical History Surgical History History of gastrostomy tube placement and removal Family History Family History Father Hypertension Family history of coronary artery disease Sibling Hypertension Family history of coronary artery disease Mother Cerebrovascular accident Other Asthma Depression Family history of Alzheimer's disease Family history of arth
[2023-02-27] MEDS: IPRATROPIUM BR 0.02% INH SOLN 0.5 MG/2.5 ML VIAL INHALATION ×3 (13:39→20:05)
[2023-02-27] MEDS: ALBUTEROL SULFATE NEB 2.5 MG/3 ML INH 10 MG INHALATION ×2 (13:39→18:26)
[2023-02-27 13:57] LABS: Basophils Absolute Auto 0.1 K/mm3 (0.0-0.1); Basophils Percent Auto 1.2 % (0.2-1.2); Eosinophils Absolute Auto 0.5 K/mm3 (0-0.3); Eosinophils Percent Auto 6.1 % (0-4.4); Hematocrit 40.4 % (37.0-47.0); Hemoglobin 12.4 g/dL (12.0-15.0); Immature Granulocyte Absolute 0.05 K/mm3 (0.00-0.031); Immature Granulocyte Percent A 0.6 % (0-0.5); Lymphocytes Absolute Auto 1.31 K/mm3 (0.9-3.2); Lymphocytes Percent Auto 15.6 % (18.3-44.2); Mean Corpuscular HGB Conc 30.7 g/dl (32-36); Mean Corpuscular Hemoglobin 29.8 pg (26-34); Mean Corpuscular Volume 97.1 fl (80-100); Mean Platelet Volume 10.6 fl (7.4-10.4); Monocytes Absolute Auto 0.9 K/mm3 (0.1-0.6); Monocytes Percent Auto 10.5 % (2.6-8.5); Neutrophils Absolute Auto 5.6 K/mm3 (1.3-6.7); Platelet Count Result 234 k/mm3 (150-375); Red Blood Count 4.16 M/mm3 (4.2-5.4); Red Cell Distribution Width 15.5 % (11.5-14.5); White Blood Count 8.4 K/mm3 (4.5-10.0)
[2023-02-27 14:07] LABS: INR 1.1; Prothrombin Time 14.6 Seconds (11.1-14.7)
[2023-02-27 14:08] LABS: Partial Thromboplastin Time 33.9 SECONDS (22.3-36.8)
[2023-02-27 14:21] LABS: Influenza A QL RT-PCR Negative (Negative); Influenza B QL RT-PCR Negative (Negative); SARS-CoV-2 RNA PCR Negative (Negative)
[2023-02-27 14:23] LABS: NT Pro B Type Natriuretic Pept 2150 pg/mL (19.9-100); Troponin I 0.012 ng/mL (0.000-0.034)
[2023-02-27 14:38] LABS: Alanine Aminotransferase 29 U/L (6-35); Albumin Level 4.4 g/dL (3.5-5.1); Alkaline Phosphatase 173 U/L (38-126); Anion Gap 11 mmol/L (8-16); Aspartate Amino Transferase 35 U/L (14-36); Bilirubin,Total 0.8 mg/dL (0.2-1.3); Blood Urea Nitrogen 44 mg/dL (7-17); Calcium 9.1 mg/dL (8.4-10.2); Carbon Dioxide 34 mmol/L (22-30); Chloride 90 mmol/L (98-107); Estimated CRCL calculation 13 ml/min; Estimated Glomerular Filt Rate 9; Glucose 209 mg/dL (65-110); Magnesium 1.9 mg/dL (1.6-2.3); Sodium 135 mmol/L (137-145)
[2023-02-27] MEDS: methylPREDNISolone SOD SUCC 125 MG VIAL IV PUSH (14:41)
--- NOTE | 2023-02-27 18:02 | PC.NURSE ---
spo2 dropped to 88% while sleeping, O2 applied at 2L/NC while sleeping
[2023-02-27 18:08] LABS: Troponin I < 0.012 ng/mL (0.000-0.034)
[2023-02-27] MEDS: AZITHROMYCIN 500 MG/NS 250 ML 500 MG/250 ML BAG 250 MG IVPB (18:45)
--- NOTE | 2023-02-27 19:30 | PM.IMHP ---
H&P: HPI History of Present Illness Date/Time: 02/27/23 19:30 Chief Complaint: Shortness of breath Narrative: This is a 72-year-old female with past medical history significant for end-stage renal disease, hemodialysis, hypertension, type diabetes mellitus, insulin dependent, patient comes to the emergency room due to shortness of breath for the last 2 days or so has a cough that is nonproductive. Patient has been compliant with her dialysis treatments, denies fevers, rigors, chills, no chest pain, no PND, no orthopnea, no nausea no vomiting no diarrhea no abdominal pain. Patient tried to alleviate her symptoms by getting out of the house and went for a walk at [employer] and states that it has felt good. preliminary workup was significant for chemistry panel with chloride of 90 bicarb of 30 BUN 44 creatinine 4.6 brain natriuretic peptide is 2150 a chest x-ray was reported as: XR chest 2V 02/27/2023 13:09 Indication: Asthma. Cough. Dyspnea. Procedure: 2 view chest Comparison: Comparison to multiple prior studies sequentially, with oldest reviewed study dated? 06/03/2022. Findings: Borderline heart size. Mild interstitial edema. Small pleural effusions. No pneumothorax. No acute osseous abnormality. Impression: 1: Borderline heart size with mild interstitial edema. Review of Systems Review of Systems: Shortness of breath Constitutional: Constitutional: Denies chills, Denies fatigue, Denies fever(s), Denies malaise and Denies night sweats Eyes: Eyes: Denies change in vision ENT: Denies dysphagia, Denies vertigo, Denies dizziness and Denies odynophagia Cardiovascular: Cardiovascular: Denies chest pain, Denies leg edema, Denies lightheadedness, Denies radiating jaw, neck or arm pain and Denies palpitations Respiratory: Respiratory: Reports chest congestion, Denies cough, Reports dyspnea and Reports wheezing Gastrointestinal: Gastrointestinal: Reports abdominal pain, Denies dyspepsia, Denies heartburn, Denies diarrhea, Denies nausea and Denies vomiting Genitourinary: Genitourinary: Denies dysuria and Denies flank pain Musculoskeletal: Musculoskeletal: Denies back pain and Denies myalgias Integumentary/Breasts: Skin/Breast: Denies rash Neurologic: Denies vertigo, Denies dizziness, Denies focal weakness and Denies Sensory deficit (Neuro) Psychiatric: Psychiatric: Reports no additional psychiatric complaints and Reports as per HPI Endocrine: Endocrine: Denies cold intolerance, Denies fatigue, Denies flushing, Denies heat intolerance, Denies polyphagia, Denies polydipsia and Denies palpitations Hematologic/Lymphatic: Hematologic/Lymphatic: Reports no additional hematologic/lymphatic complaints and Reports as per HPI Allergic/Immunologic: Allergic/Immunologic: Reports no additional allergic/immunologic complaints and Reports as per HPI PMFSH Past Medical History Medical History 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 Chronic diastolic (congestive) heart failure Chronic kidney disease, stage 3 unspecified Chronic kidney disease, stage III (moderate) COPD (chronic obstructive pulmonary disease) Coronary artery disease involving [place] heart without angina pectoris Depression DVT (deep venous thrombosis) ESRD on dialysis ARACELY (generalized anxiety disorder) GERD without esophagitis History of stroke Hypertensive heart and CKD, ESRD on dialysis, w CHF Hypertensive heart disease with heart failure and stage 3 chronic kidney disease Hyponatremia Hypothyroid Left knee DJD Long-term insulin use Peripheral polyneuropathy Pre-ulcerative calluses Sepsis Type 2 diabetes mellitus with hyperglycemia Surgical History Surgical History History of gastrostomy tube placement and removal Family History Family History Father Hypertension Family history
[2023-02-27] MEDS: ALBUTEROL SULFATE NEB 2.5 MG/3 ML INH INHALATION (20:05)
[2023-02-27 21:16] LABS: Glucose Point of Care 377 mg/dl (65-105)
--- NOTE | 2023-02-27 21:31 | ADMGEN ---
This patient, Gregoria Rae, was admitted to Medical Room 252-01. Patient/family oriented to hospital policies and general routines including ID bracelet, bed and alarms, visiting hours, pain management, procedures, bathroom and other care routines, personal items, smoking policy, room service/diet, and visiting hours. Information on how to activate the Rapid Response Team has been discussed. Patient/Family are encouraged to report perceived risks to care and to ask questions if they do not understand what they are told or what they should do.
[2023-02-27 21:44] LABS: Troponin I < 0.012 ng/mL (0.000-0.034)
[2023-02-28] VITALS (38 sets, daily range): BP systolic 99–172; BP diastolic 36–71; PULSE 50–94; RESP 11–24; TEMP 36.4–37; O2SAT 90–97
[2023-02-28] MEDS: methylPREDNISolone SOD SUCC 125 MG VIAL 60 MG IV PUSH ×2 (00:06→05:30)
[2023-02-28] MEDS: INSULIN GLARGINE (*BKC) 100 UNITS/ML 28 UNITS SUB-Q (02:28)
[2023-02-28] MEDS: ALBUTEROL SULFATE NEB 2.5 MG/3 ML INH INHALATION ×4 (03:12→20:38)
[2023-02-28] MEDS: IPRATROPIUM BR 0.02% INH SOLN 0.5 MG/2.5 ML VIAL INHALATION ×4 (03:12→20:37)
[2023-02-28] MEDS: LEVOTHYROXINE SODIUM 75 MCG TABLET PO (05:30)
[2023-02-28] MEDS: LEVOTHYROXINE SODIUM 100 MCG TABLET PO (05:30)
[2023-02-28 06:48] LABS: Glucose Point of Care > 500 mg/dl (65-105)
[2023-02-28 06:48] LABS: Glucose Point of Care > 500 mg/dl (65-105)
[2023-02-28] MEDS: INSULIN HUMAN REGULAR (*BKC) 100 UNITS/ML 10 UNITS SUB-Q ×2 (06:54→07:14)
--- NOTE | 2023-02-28 07:03 | ECG_ITS ---
Measurements Intervals [place] Rate: 0 P: [place]: 0 QRS: QRSD: 0 T: QT: 0 QTc: 0 Interpretive Statements NORMAL SINUS RHYTHM WITH BASELINE ARTIFACT NONSPECIFIC ST CHANGES WARNING: DATA QUALITY MAY AFFECT INTERPRETATION COMPARED TO ECG 02/27/2023 14:09:56 NO SIGNIFICANT CHANGES Electronically Signed On 02-28-2023 11:21:15 CDT by Bri Peña M.D.
[2023-02-28 07:06] LABS: Glucose Point of Care > 500 mg/dl (65-105)
[2023-02-28 07:10] LABS: Alveolar/Arterial O2 Gradient 454.3 mmHg; Base Excess ABG 1.6 mEq/l (+/-2.0); Fractional Inspired Oxygen 100 %; HCO3 ABG 27.8 mEq/l (22.0-26.0); Oxygen Content ABG 17.7 %vol (16.0-22.0); Oxygen Saturation ABG 99.4 % (95.0-100.0); Oxyhemoglobin 97.4 % THb (90.0-100.0); PCO2 ABG 50.3 mmHg (35.0-45.0); PO2 ABG 208.4 mmHg (80.0-100.0); PO2 FiO2 Ratio Arterial Blood 2.08 %; Total Hemoglobin 12.6 g/dL (12.0-18.0)
[2023-02-28 07:12] LABS: Device NON-REBREATHER MASK; Modified Allen's Test Pass; Site Drawn RIGHT RADIAL
[2023-02-28 07:27] LABS: Glucose Point of Care > 500 mg/dl (65-105)
[2023-02-28 07:27] LABS: Basophils Percent Auto 0.5 % (0.2-1.2); Hematocrit 38.9 % (37.0-47.0); Immature Granulocyte Absolute 0.05 K/mm3 (0.00-0.031); Immature Granulocyte Percent A 0.8 % (0-0.5); Lymphocytes Absolute Auto 0.47 K/mm3 (0.9-3.2); Lymphocytes Percent Auto 7.3 % (18.3-44.2); Mean Corpuscular HGB Conc 30.8 g/dl (32-36); Mean Corpuscular Hemoglobin 29.6 pg (26-34); Mean Platelet Volume 10.5 fl (7.4-10.4); Monocytes Absolute Auto 0.1 K/mm3 (0.1-0.6); Monocytes Percent Auto 1.7 % (2.6-8.5); Neutrophils Absolute Auto 5.8 K/mm3 (1.3-6.7); Neutrophils Percent Auto 89.7 % (45.5-73.1); Platelet Count Result 214 k/mm3 (150-375); Red Blood Count 4.05 M/mm3 (4.2-5.4); Red Cell Distribution Width 15.7 % (11.5-14.5); White Blood Count 6.4 K/mm3 (4.5-10.0)
[2023-02-28 07:35] LABS: Ammonia < 9 umol/L (9-30)
[2023-02-28 07:37] LABS: Lactic Acid Reflex 1.3 mmol/L (0.7-2.0); Partial Thromboplastin Time 30.7 SECONDS (22.3-36.8)
--- NOTE | 2023-02-28 07:38 | PC.NURSE ---
Entered patient's room at 0630 hrs and found the patient's IV out and right hand bleeding. Patient was drowsy and had difficulty staying awake. Completed a full set of vitals which came back within normal limits for all parameters. The patient's blood sugar came back over [address] Davis was notified of the patient's condition and ordered 10 units of subcu regular insulin. Patient then became unarousable and a rapid response was called to the room. Patient then recovered after rapid response team's interventions, patient's blood sugar was checked again and came back 594. Another 10 units of regular insulin was administered. No further signs of distress were observed and the rapid response team left the room at 0720 hrs. Report was given to the day shift nurse about the incident.
[2023-02-28 08:03] LABS: Alanine Aminotransferase 28 U/L (6-35); Albumin Level 4.2 g/dL (3.5-5.1); Alkaline Phosphatase 156 U/L (38-126); Anion Gap 13 mmol/L (8-16); Aspartate Amino Transferase 29 U/L (14-36); Bilirubin,Total 0.6 mg/dL (0.2-1.3); Blood Urea Nitrogen 66 mg/dL (7-17); Calcium 8.6 mg/dL (8.4-10.2); Carbon Dioxide 26 mmol/L (22-30); Chloride 90 mmol/L (98-107); Estimated CRCL calculation 9 ml/min; Estimated Glomerular Filt Rate 7; Glucose 615 mg/dL (65-110); Potassium 6.2 mmol/L (3.4-5.0); Sodium 129 mmol/L (137-145)
[2023-02-28 08:38] LABS: Glucose Point of Care > 500 mg/dl (65-105)
--- NOTE | 2023-02-28 09:04 | WPDCNINT ---
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 Transferred to ICU and was started on IV insulin infusion. Will give 10 units IV insulin bolus Serial BMP to monitor electrolytes Will not start any fluids due to end-stage renal disease and congestive heart failure Her anion gap is normal and she is not in any DKA I will decrease steroid dose (2) COPD exacerbation: Code(s): J44.1 - Chronic obstructive pulmonary disease with (acute) exacerbation Status: Acute Assessment and Plan: Continue Solu-Medrol but decrease to q.day 50 mg patient is on high dose at this time Continue bronchodilators Dry cough, afebrile, normal WBC, mixed picture with pulmonary edema-she did receive 1 dose of azithromycin on admission but will hold further antibiotics at this time. (3) Hyperkalemia: Code(s): E87.5 - Hyperkalemia Status: Acute Assessment and Plan: Secondary to hyperglycemia and end-stage renal disease Will give 10 units of IV insulin push Recheck BMP at noon Will give a dose of Lokelma Will discuss with Nephrology regarding timing of next dialysis (4) End stage renal disease: Code(s): N18.6 - End stage renal disease Status: Acute Assessment and Plan: Patient on Sunday dialysis Will discuss with Nephrology to see if patient can be dialyzed today dialysis. She she likely needs additional fluid removed Treatment of hyperkalemia as above (5) CHF (congestive heart failure): Code(s): I50.9 - Heart failure, unspecified Status: Acute Assessment and Plan: Chest x-ray showed mild interstitial edema which may also be contributing to the wheezing although patient is on room air Will discuss with Nephrology to see if patient can be dialyzed today dialysis. She she likely needs additional fluid removed Continue cardiac medications Plan DVT prophylaxis -Eliquis Stress ulcer prophylaxis -Protonix Nutrition -change diet to diabetic with fluid restriction Code Status - Full Code Ream Cutter Consult Note Consult date: 02/28/23 Reason for consult: Hyperglycemia uncontrolled HPI: Gregoria Rae is a 72 year old female with past medical history of diabetes as stated disease congestive heart failure and COPD presented yesterday to ER with chief complaint of shortness of breath. She did receive dialysis yesterday. She states she has been having cough for last few weeks which is essentially dry. She does complain of dyspnea but only on exertion. No chest pain PND orthopnea fever chills or rigors. No nausea vomiting or diarrhea. No abdominal pain. She states she has been checked multiple times for flu and COVID and was tested negative. All other systems were reviewed and were negative. She was diagnosed with COPD exacerbation and was admitted to the floor. She was started on bronchodilators and steroids. Due to her steroids her blood sugars became elevated and her sugars have been running very high overnight. Patient is now being transferred to ICU to be started on insulin infusion. She is tolerating p.o. diet and does not have any new complaints. Review of Systems Review of Systems: All systems reviewed & are unremarkable except as noted in HPI and below (HPI) [facility], LAT[facility] Past Medical History Medical History 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 Chronic diastolic (congestive) heart failure Chronic kidney disease, stage 3 unspecified Chronic kidney di
[2023-02-28] MEDS: FLUTICASONE/SALMETEROL 230-21 MCG INHALER 1 PUFF 2 PUFF INHALATION ×2 (09:05→20:38)
--- NOTE | 2023-02-28 09:14 | ECG_ITS ---
Measurements Intervals [place] Rate: 65 P: 9 NV: 196 QRS: -11 QRSD: 111 T: 14 QT: 487 QTc: 507 Interpretive Statements SINUS RHYTHM MODERATE INTRAVENTRICULAR CONDUCTION DELAY [105+ ms QRS DURATION, 80+ ms Q/S IN V1/V2, NO Q AND 60+ ms R IN I/aVL/V5/V6] BORDERLINE pROLONGED QT INTERVAL COMPARED TO ECG 02/28/2023 07:10:11 INTRAVENTRICULAR CONDUCTION DELAY NOW PRESENT PROLONGED QT INTERVAL NOW PRESENT Electronically Signed On 02-28-2023 11:23:26 CDT by Bri Peña M.D.
[2023-02-28] MEDS: PANTOPRAZOLE 40 MG TABLET PO (09:35)
[2023-02-28] MEDS: MONTELUKAST SODIUM 10 MG TABLET PO (09:35)
[2023-02-28] MEDS: APIXABAN 2.5 MG TABLET PO ×2 (09:35→21:41)
[2023-02-28] MEDS: CALCIUM ACETATE 667 MG TABLET PO ×3 (09:35→16:33)
[2023-02-28] MEDS: GABAPENTIN 300 MG CAPSULE 600 MG PO ×2 (09:35→21:40)
[2023-02-28] MEDS: METOPROLOL SUCCINATE EXT REL 50 MG TABCR PO (09:36)
[2023-02-28] MEDS: FUROSEMIDE 80 MG TABLET PO ×2 (09:36→21:41)
[2023-02-28] MEDS: rOPINIRole HCL 1 MG TABLET 2 MG PO (09:36)
[2023-02-28] MEDS: INSULIN ASPART (*BKC) 100 UNITS/ML SUB-Q (09:39)
[2023-02-28] MEDS: INSULIN GLARGINE (*BKC) 100 UNITS/ML 10 UNITS SUB-Q (09:49)
[2023-02-28] MEDS: SODIUM ZIRCONIUM CYCLOSILICATE 10 GM POWD.PACK PO ×2 (09:57→10:38)
[2023-02-28] MEDS: INSULIN HUMAN REGULAR (*BKC) 100 UNITS in SODIUM CHLORIDE 0.9% IV 99 ML 10.7 UNITS IV CONT (10:21)
[2023-02-28] MEDS: INSULIN HUMAN REGULAR (*BKC) 100 UNITS/ML 10 UNITS IV PUSH (10:21)
[2023-02-28 10:36] LABS: Glucose Point of Care > 500 mg/dl (65-105)
[2023-02-28] MEDS: FLUTICASONE PROPIONATE 0.05% NA SPR 16 GM BTL (*BKC) 2 SPRAY NASAL (10:38)
--- NOTE | 2023-02-28 10:59 | PC.NURSE ---
This patient, Gregoria Rae, was received from [facility] on 02/28/23 at 1010. Patient/family oriented to unit policies and routines
[2023-02-28 11:33] LABS: Glucose Point of Care 368 mg/dl (65-105)
[2023-02-28 12:24] LABS: Anion Gap 18 mmol/L (8-16); Blood Urea Nitrogen 72 mg/dL (7-17); Carbon Dioxide 22 mmol/L (22-30); Chloride 93 mmol/L (98-107); Estimated CRCL calculation 8 ml/min; Estimated Glomerular Filt Rate 6; Glucose 296 mg/dL (65-110); Potassium 4.8 mmol/L (3.4-5.0); Sodium 133 mmol/L (137-145)
--- NOTE | 2023-02-28 12:49 | PC.NURSE ---
This patient, Gregoria Rae, was transferred to [ ICU 7] on 02/28/23 at 09:30. Personal belongings sent with patient. Report given to [Christina ]. Appropriate documentation sent with patient.
[2023-02-28 13:39] LABS: Hepatitis B Surface Antigen Negative (Negative)
[2023-02-28 13:46] LABS: Glucose Point of Care 203 mg/dl (65-105)
[2023-02-28 13:46] LABS: Glucose Point of Care 184 mg/dl (65-105)
[2023-02-28 13:57] LABS: Hepatitis B Surface Anti Res Negative
[2023-02-28 15:04] LABS: Glucose Point of Care 88 mg/dl (65-105)
[2023-02-28] MEDS: ALBUMIN HUMAN 25% 12.5 GM/50ML 50 ML IVPB (15:07)
--- NOTE | 2023-02-28 15:15 | P.CONNP_ITS ---
Assessment and Plan Assessment and plan (1) End stage renal disease: Code(s): N18.6 - End stage renal disease Status: Acute Assessment and Plan: * HD today for her elevated K+ and fluid overload * HD tomorrow to resume T/T/S outpatient schedule * follow electrolytes, volume status, and clearance (2) Hyperkalemia: Code(s): E87.5 - Hyperkalemia Status: Acute Assessment and Plan: * presumably due to hyperglycemia * did receive a full treatment yesterday at outpatient dialysis center * this would argue her potassium was quite elevated prior to treatment yeste rday * s/p medical management with improvement noted * dialysis today should help stabilize as well (3) COPD exacerbation: Code(s): J44.1 - Chronic obstructive pulmonary disease with (acute) exacerbation Status: Acute Assessment and Plan: * continue bronchodilators * on steroids * follow respiratory status (4) CHF (congestive heart failure): Code(s): I50.9 - Heart failure, unspecified Status: Acute Assessment and Plan: * Admission CXR with evidence of interstitial edema * known to have large fluid gains in between dialysis treatments * HD today for electrolytes control and fluid removal * plan HD again tomorrow' (5) Hypertension: Code(s): I10 - Essential (primary) hypertension Status: Chronic Assessment and Plan: * reasonable control at this time * follow trend of hemodynamics (6) Type 2 diabetes mellitus with hyperglycemia: 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 Thank you for allowing me to participate in care this patient. History of Present Illness Reason for Consult Consult date: 02/28/23 Reason for consult: end stage renal disease Chief Complaint Chief complaint: COPD Exacerbation History of Present Illness Narrative: The patient is a 72 year female with a past medical history as outlined presented to [facility] Emergency Room complaints of shortness of breath. The patient stated that she received her dialysis treatment yesterday but her outpatient records do indicate that they did not get her to her dry weight she is known to have significant fluid gains in between dialysis treatments. However, she also reports that she has been having a dry cough for last few weeks in association with her shortness of breath what seems to be more noticeable with any type of exertional activity. She denies any chest pains, orthopnea, paroxysmal dyspnea, fevers, chills, or rigors. No reported nausea, vomiting, diarrhea, or abdominal pain. She has had multiple testing for flu and COVID which has also been negative as well. Given the persistence of her shortness of breath despite all conservative therapy, she came to the ER for further assessment Workup and evaluation emergency room demonstrated the patient be hemodynamically stable and in no apparent distress. Routine blood test demonstrated labs consistent with her known history of end-stage renal diseas
--- NOTE | 2023-02-28 15:15 | PM.CNNEP ---
Assessment and Plan Assessment and plan (1) End stage renal disease: Code(s): N18.6 - End stage renal disease Status: Acute Assessment and Plan: HD today for her elevated K+ and fluid overload HD tomorrow to resume T/T/S outpatient schedule follow electrolytes, volume status, and clearance (2) Hyperkalemia: Code(s): E87.5 - Hyperkalemia Status: Acute Assessment and Plan: presumably due to hyperglycemia did receive a full treatment yesterday at outpatient dialysis center this would argue her potassium was quite elevated prior to treatment yesterday s/p medical management with improvement noted dialysis today should help stabilize as well (3) COPD exacerbation: Code(s): J44.1 - Chronic obstructive pulmonary disease with (acute) exacerbation Status: Acute Assessment and Plan: continue bronchodilators on steroids follow respiratory status (4) CHF (congestive heart failure): Code(s): I50.9 - Heart failure, unspecified Status: Acute Assessment and Plan: Admission CXR with evidence of interstitial edema known to have large fluid gains in between dialysis treatments HD today for electrolytes control and fluid removal plan HD again tomorrow' (5) Hypertension: Code(s): I10 - Essential (primary) hypertension Status: Chronic Assessment and Plan: reasonable control at this time follow trend of hemodynamics (6) Type 2 diabetes mellitus with hyperglycemia: Qualifiers: Diabetes mellitus [facility] insulin use: with intermediate accountant use Qualified Code(s): E11.65 - Type 2 diabetes mellitus with hyperglycemia; Z79.4 - assistant terminal manager (current) use of insulin Code(s): E11.65 - Type 2 diabetes mellitus with hyperglycemia Status: Chronic Assessment and Plan: poor control at baseline worsened by use of steroids (for COPD exacerbation on insulin gtt for better glycemic control follow accuchecks I will continue to follow the patient with you while she remains hospitalized and make further recommendations as needed. Thank you for allowing me to participate in care this patient. History of Present Illness Reason for Consult Consult date: 02/28/23 Reason for consult: end stage renal disease Chief Complaint Chief complaint: COPD Exacerbation History of Present Illness Narrative: The patient is a 72 year female with a past medical history as outlined presented to [facility] Emergency Room complaints of shortness of breath. The patient stated that she received her dialysis treatment yesterday but her outpatient records do indicate that they did not get her to her dry weight she is known to have significant fluid gains in between dialysis treatments. However, she also reports that she has been having a dry cough for last few weeks in association with her shortness of breath what seems to be more noticeable with any type of exertional activity. She denies any chest pains, orthopnea, paroxysmal dyspnea, fevers, chills, or rigors. No reported nausea, vomiting, diarrhea, or abdominal pain. She has had multiple testing for flu and COVID which has also been negative as well. Given the persistence of her shortness of breath despite all conservative therapy, she came to the ER for further assessment Workup and evaluation emergency room demonstrated the patient be hemodynamically stable and in no apparent distress. Routine blood test demonstrated labs consistent with her known history of end-stage renal disease without any significant abnormalities. Subsequent testing in the emergency room seemed indicate that she had what appeared to be a COPD exacerbation. She was started on a combination of nebulizer treatments as well as steroids and subsequently admitted to the hospital for further evaluation and therapy. Since her admission, she has had significant issues and problems with hyperglycemia w
[2023-02-28 16:25] LABS: Glucose Point of Care 98 mg/dl (65-105)
[2023-02-28] MEDS: INSULIN ASPART (*BKC) 100 UNITS/ML 7 UNITS SUB-Q (17:21)
[2023-02-28 17:26] LABS: Glucose Point of Care 105 mg/dl (65-105)
[2023-02-28 19:16] LABS: Glucose Point of Care 140 mg/dl (65-105)
[2023-02-28 21:02] LABS: Glucose Point of Care 127 mg/dl (65-105)
[2023-02-28] MEDS: rOPINIRole HCL 1 MG TABLET PO (21:40)
[2023-02-28] MEDS: AMIODARONE HCL 200 MG TABLET PO (21:40)
[2023-02-28] MEDS: INSULIN GLARGINE (*BKC) 100 UNITS/ML 20 UNITS SUB-Q (21:41)
[2023-02-28] MEDS: ACETAMINOPHEN 500 MG TABLET 1000 MG PO (22:21)
[2023-03-01] VITALS (28 sets, daily range): BP systolic 89–166; BP diastolic 46–64; PULSE 59–75; RESP 12–18; TEMP 36.7–37.5; O2SAT 92–100
[2023-03-01] MEDS: IPRATROPIUM BR 0.02% INH SOLN 0.5 MG/2.5 ML VIAL INHALATION ×2 (03:06→07:55)
[2023-03-01] MEDS: ALBUTEROL SULFATE NEB 2.5 MG/3 ML INH INHALATION ×2 (03:07→07:56)
[2023-03-01 03:49] LABS: Hematocrit 37.8 % (37.0-47.0); Hemoglobin 11.8 g/dL (12.0-15.0); Mean Corpuscular HGB Conc 31.2 g/dl (32-36); Mean Corpuscular Volume 96.2 fl (80-100); Mean Platelet Volume 10.3 fl (7.4-10.4); Platelet Count Result 210 k/mm3 (150-375); Red Blood Count 3.93 M/mm3 (4.2-5.4); Red Cell Distribution Width 15.7 % (11.5-14.5); White Blood Count 14.2 K/mm3 (4.5-10.0)
[2023-03-01 04:06] LABS: Alanine Aminotransferase 25 U/L (6-35); Albumin Level 3.9 g/dL (3.5-5.1); Alkaline Phosphatase 129 U/L (38-126); Anion Gap 10 mmol/L (8-16); Aspartate Amino Transferase 29 U/L (14-36); Bilirubin,Total 0.5 mg/dL (0.2-1.3); Blood Urea Nitrogen 63 mg/dL (7-17); Calcium 8.7 mg/dL (8.4-10.2); Carbon Dioxide 30 mmol/L (22-30); Chloride 92 mmol/L (98-107); Estimated CRCL calculation 10 ml/min; Estimated Glomerular Filt Rate 8; Glucose 220 mg/dL (65-110); Magnesium 1.8 mg/dL (1.6-2.3); Phosphorus 4.9 mg/dL (2.5-4.5); Potassium 4.4 mmol/L (3.4-5.0); Sodium 132 mmol/L (137-145)
[2023-03-01] MEDS: LEVOTHYROXINE SODIUM 75 MCG TABLET PO (05:41)
[2023-03-01] MEDS: LEVOTHYROXINE SODIUM 100 MCG TABLET PO (05:41)
[2023-03-01] MEDS: FLUTICASONE/SALMETEROL 230-21 MCG INHALER 1 PUFF 2 PUFF INHALATION (07:56)
--- NOTE | 2023-03-01 08:15 | WPDINTPN ---
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 Patient was transferred to ICU and was started on IV insulin infusion. And was given 10 units IV insulin bolus Serial BMP to monitor electrolytes were done Glycemic control has improved and patient has been transition to subcutaneous insulin Continue current dose of Lantus, with meal insulin and sliding scale Continue current dose of steroids (2) COPD exacerbation: Code(s): J44.1 - Chronic obstructive pulmonary disease with (acute) exacerbation Status: Acute Assessment and Plan: Solu-Medrol dose was decreased yesterday. Will switch to p.o. prednisone Continue bronchodilators Dry cough, afebrile, normal WBC, mixed picture with pulmonary edema-she did receive 1 dose of azithromycin on admission but will hold further antibiotics at this time. (3) Hyperkalemia: Code(s): E87.5 - Hyperkalemia Status: Acute Assessment and Plan: Secondary to hyperglycemia and end-stage renal disease Improved with 10 units of IV insulin push Lokelma and later dialysis Improved (4) End stage renal disease: Code(s): N18.6 - End stage renal disease Status: Acute Assessment and Plan: Patient on Sunday dialysis She was dialyzed yesterday and will receive again dialysis today (5) CHF (congestive heart failure): Code(s): I50.9 - Heart failure, unspecified Status: Acute Assessment and Plan: Chest x-ray showed mild interstitial edema which was likely contributing to the wheezing although patient was on room air She was dialyzed yesterday and 3.5 L fluid was removed. A lung exam is much improved and I do not hear any wheezing today She is scheduled for dialysis again today Continue cardiac medications Plan DVT prophylaxis -Eliquis Stress ulcer prophylaxis -Protonix Nutrition -continue diet to diabetic with fluid restriction Code Status - Full Code Transfer out of ICU today Subjective Date/time seen: 03/01/23 Overnight events reviewed. Afebrile Patient was dialyzed yesterday and 3.5 L fluid was removed She states she feels much better and with improved breathing. Review of system is positive for chest ache with deep breathing at the site where they did sternal rub yesterday. Denies any other complaints. Would like to go home. Tolerating p.o. diet. Other vital signs are stable.. She is on room air Review of Systems Review of Systems: All systems reviewed & are unremarkable except as noted in HPI and below (HPI) Exam Narrative: General: Pt is alert awake and in NAD Lungs/Chest: Trachea central Clear BS B/L, no wheezing on exam today, no respiratory distress no tachypnea no use of accessory muscles Cardiac: RRR. Normal S1 S2. No murmurs Circulation: Pedal pulses are intact and symmetrical. Abdomen: Normal bowel sounds.. Soft. NT. ND. Extremities: No clubbing, cyanosis Warm, trace pedal edema, chronic venous stasis changes : Street in place Neurologic: Follows commands. Moves all 4 extremities PERRL AO x3 Skin: No Rash Objective Data Vital Signs Vital Signs: Vital Signs - 24 hr 02/28/23 09:06 02/28/23 09:09 02/28/23 09:19 Temperature Pulse Rate 62 65 Respiratory Rate 16 16 Blood Pressure Pulse Oximetry 94 Oxygen Delivery Room Air 02/28/23 09:36 02/28/23 11:58 02/28/23 12:00 Temperature Pulse Rate 94 65 Respiratory Rate Blood Pressure Pulse Oximetry Oxygen Delivery Room Air 02/28/23 12
[2023-03-01] MEDS: PANTOPRAZOLE 40 MG TABLET PO (08:43)
[2023-03-01] MEDS: APIXABAN 2.5 MG TABLET PO (08:43)
[2023-03-01] MEDS: predniSONE 20 MG TABLET 60 MG PO (08:43)
[2023-03-01] MEDS: FUROSEMIDE 80 MG TABLET PO (08:43)
[2023-03-01] MEDS: CALCIUM ACETATE 667 MG TABLET PO ×2 (08:44→13:58)
[2023-03-01] MEDS: METOPROLOL SUCCINATE EXT REL 50 MG TABCR PO (08:44)
[2023-03-01] MEDS: GABAPENTIN 300 MG CAPSULE 600 MG PO (08:44)
[2023-03-01] MEDS: rOPINIRole HCL 1 MG TABLET 2 MG PO (08:44)
[2023-03-01] MEDS: MONTELUKAST SODIUM 10 MG TABLET PO (08:44)
[2023-03-01] MEDS: FLUTICASONE PROPIONATE 0.05% NA SPR 16 GM BTL (*BKC) 2 SPRAY NASAL (08:45)
[2023-03-01] MEDS: INSULIN ASPART (*BKC) 100 UNITS/ML 7 UNITS SUB-Q ×2 (08:51→13:57)
[2023-03-01 09:01] LABS: Glucose Point of Care 190 mg/dl (65-105)
--- NOTE | 2023-03-01 11:00 | P.PNNP_ITS ---
Progress Note: A&P Assessment and Plan (1) End stage renal disease: Code(s): N18.6 - End stage renal disease Status: Acute Assessment and Plan: * HD today * continue T/T/S outpatient schedule * follow electrolytes, volume status, and clearance (2) Hyperkalemia: Code(s): E87.5 - Hyperkalemia Status: Resolved Assessment and Plan: * resolved * presumably due to hyperglycemia * s/p medical management with improvement noted * dialysis should maintain stability in this issue (3) COPD exacerbation: Code(s): J44.1 - Chronic obstructive pulmonary disease with (acute) exacerbation Status: Acute Assessment and Plan: * clinical improvement noted * continue bronchodilators * on steroids * follow respiratory status (4) CHF (congestive heart failure): Code(s): I50.9 - Heart failure, unspecified Status: Acute Assessment and Plan: * admission CXR with evidence of interstitial edema * known to have large fluid gains in between dialysis treatments * HD yesterday and today for electrolytes control and fluid removal * follow volume status (5) Hypertension: Code(s): I10 - Essential (primary) hypertension Status: Chronic Assessment and Plan: * reasonable control at this time * follow trend of hemodynamics (6) Type 2 diabetes mellitus with hyperglycemia: Qualifiers: 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 Subjective Date/time seen: 03/01/23 11:00 Interval history: Follow-up for end-stage renal disease on hemodialysis. Tolerated dialysis treatment yesterday afternoon with about 3.5L fluid removal and tolerating dialysis treatment at this time (seen on HD at 10:45AM); potassium has normalized with medical management and dialytic intervention; breathing/respiratory status is improved/better at this time; remains on room air and in no apparent distress. Exam Narrative: General: elderly but WD/WN female in NAD Heart: normal S1 and S2; no rub Lungs: clear anteriorly; decreased at bases Abdomen: soft, nontender, nondistended, positive bowel sounds Extremities: no cyanosis or clubbing; no edema Skin: warm and dry Objective Data Vital Signs Vital Signs: Vital Signs Temp Pulse Resp BP Pulse Ox O2 Del Method 03/01/23 11:00 59 L 95/49 L 03/01/23 10:45 60 92/48 L 03/01/23 10:30 71 92/51 L 03/01/23 10:15 67 103/57 L 03/01/23 10:10 70 111/52 L 03/01/23 10:00 61 93/51 L 03/01/23 09:45 70 100/49 L 03/01/23 09:30 75 92/46 L 03/01/23 09:15 74 115/52 L 03/01/23 07:46 98.4 F 71 18 130/64 95 03/01/23 09:00 75 120/52 L 03/01/23 08:45 73 127/59 L 03/01/23 08:44 71 03/01/23 08:30 70 142/51 H 03/01/23 08:15 65 139/58 L
--- NOTE | 2023-03-01 11:00 | PM.PNNEP ---
Progress Note: A&P Assessment and Plan (1) End stage renal disease: Code(s): N18.6 - End stage renal disease Status: Acute Assessment and Plan: HD today continue T/T/S outpatient schedule follow electrolytes, volume status, and clearance (2) Hyperkalemia: Code(s): E87.5 - Hyperkalemia Status: Resolved Assessment and Plan: resolved presumably due to hyperglycemia s/p medical management with improvement noted dialysis should maintain stability in this issue (3) COPD exacerbation: Code(s): J44.1 - Chronic obstructive pulmonary disease with (acute) exacerbation Status: Acute Assessment and Plan: clinical improvement noted continue bronchodilators on steroids follow respiratory status (4) CHF (congestive heart failure): Code(s): I50.9 - Heart failure, unspecified Status: Acute Assessment and Plan: admission CXR with evidence of interstitial edema known to have large fluid gains in between dialysis treatments HD yesterday and today for electrolytes control and fluid removal follow volume status (5) Hypertension: Code(s): I10 - Essential (primary) hypertension Status: Chronic Assessment and Plan: reasonable control at this time follow trend of hemodynamics (6) Type 2 diabetes mellitus with hyperglycemia: Qualifiers: Diabetes mellitus intermediate accountant insulin use: with skilled nursing use Qualified Code(s): E11.65 - Type 2 diabetes mellitus with hyperglycemia; Z79.4 - termite control service representative (current) use of insulin Code(s): E11.65 - Type 2 diabetes mellitus with hyperglycemia Status: Chronic Assessment and Plan: poor control at baseline worsened by use of steroids (for COPD exacerbation) follow accu-cheks transitioned to SQ insulin glycemic control per plastics plater/hospitalist Will continue to follow. Subjective Date/time seen: 03/01/23 11:00 Interval history: Follow-up for end-stage renal disease on hemodialysis. Tolerated dialysis treatment yesterday afternoon with about 3.5L fluid removal and tolerating dialysis treatment at this time (seen on HD at 10:45AM); potassium has normalized with medical management and dialytic intervention; breathing/respiratory status is improved/better at this time; remains on room air and in no apparent distress. Exam Narrative: General: elderly but WD/WN female in NAD Heart: normal S1 and S2; no rub Lungs: clear anteriorly; decreased at bases Abdomen: soft, nontender, nondistended, positive bowel sounds Extremities: no cyanosis or clubbing; no edema Skin: warm and dry Objective Data Vital Signs Vital Signs: Vital Signs Temp Pulse Resp BP Pulse Ox O2 Del Method 03/01/23 11:00 59 L 95/49 L 03/01/23 10:45 60 92/48 L 03/01/23 10:30 71 92/51 L 03/01/23 10:15 67 103/57 L 03/01/23 10:10 70 111/52 L 03/01/23 10:00 61 93/51 L 03/01/23 09:45 70 100/49 L 03/01/23 09:30 75 92/46 L 03/01/23 09:15 74 115/52 L 03/01/23 07:46 98.4 F 71 18 130/64 95 03/01/23 09:00 75 120/52 L 03/01/23 08:45 73 127/59 L 03/01/23 08:44 71 03/01/23 08:30 70 142/51 H 03/01/23 08:15 65 139/58 L 03/01/23 08:08 66 166/57 H 03/01/23 08:10 64 14 03/01/23 07:57 67 12 03/01/23 07:57 98 Room Air 03/01/23 03:10 60 15 96 Autopap 02/28/23 23:20 61 20 95 Autopap 03/01/23 06:00 65 14 139/57 L 92 03/01/23 06:00 65 03/01/23 04:00 Room Air 03/01/23 04:00 98.8 F 66 16 144/58 H 92 03/01/23 04:00 66 02/28/23 20:53 63 14 03/01/23 03:08 60 15 03/01/23 02:00 59 L 14 137/48 L 92 03/01/23 02:00 59 L 03/01/23 00:00 98.0 F 61 13 134/51 L 94 03/01/23 00:00 61 02/28/23 23:53 CPAP 02/28/23 22:00 61 13 135/49 L 96 02/28/23 22:00 61 1
[2023-03-01 12:53] LABS: Glucose Point of Care 174 mg/dl (65-105)
--- NOTE | 2023-03-01 13:09 | PM.IMPN ---
Progress Note: A&P Assessment and Plan (1) Type 2 diabetes mellitus with hyperglycemia: Qualifiers: Diabetes mellitus senior living insulin use: with senior living use Qualified Code(s): E11.65 - Type 2 diabetes mellitus with hyperglycemia; Z79.4 - care home (current) use of insulin Code(s): E11.65 - Type 2 diabetes mellitus with hyperglycemia Status: Chronic Assessment and Plan: BG wnl lantus was reduced to 10 units and on SSI with accucheks monitor (2) COPD exacerbation: Code(s): J44.1 - Chronic obstructive pulmonary disease with (acute) exacerbation Status: Acute Assessment and Plan: continue bronchodilators and steroids (3) Hyperkalemia: Code(s): E87.5 - Hyperkalemia Status: Resolved Assessment and Plan: resolved with dialysis (4) End stage renal disease: Code(s): N18.6 - End stage renal disease Status: Acute Assessment and Plan: on dialysis Nephrology following for dialysis (5) CHF (congestive heart failure): Code(s): I50.9 - Heart failure, unspecified Status: Acute Assessment and Plan: Chest x-ray showed mild interstitial edema which was likely contributing to the wheezing although patient was on room air She was dialyzed yesterday and 3.5 L fluid was removed. Plan DVT prophylaxis -Eliquis Nutrition -continue diet to diabetic with fluid restriction Code Status - Full Code Subjective Date/time seen: 02/28/23 13:09 Interval history: Patient comfortable at bedside and was transferred to ICu for hyperkalemia and hypoglycemia Review of Systems Review of Systems: Shortness of breath All systems reviewed & are unremarkable except as noted in HPI and below (HPI) Constitutional: Constitutional: Denies chills, Denies fatigue, Denies fever(s), Denies malaise and Denies night sweats Eyes: Eyes: Denies change in vision ENT: Denies dysphagia, Denies vertigo, Denies dizziness and Denies odynophagia Cardiovascular: Cardiovascular: Denies chest pain, Denies leg edema, Denies lightheadedness, Denies radiating jaw, neck or arm pain, Denies palpitations and Reports dyspnea Respiratory: Respiratory: Reports chest congestion, Denies cough, Reports dyspnea and Reports wheezing Gastrointestinal: Gastrointestinal: Reports abdominal pain, Denies dysphagia, Denies dyspepsia, Denies heartburn, Denies diarrhea, Denies nausea, Denies odynophagia and Denies vomiting Genitourinary: Genitourinary: Denies dysuria and Denies flank pain Musculoskeletal: Musculoskeletal: Denies back pain and Denies myalgias Integumentary/Breasts: Skin/Breast: Denies rash Neurologic: Denies vertigo, Denies dizziness, Denies focal weakness and Denies Sensory deficit (Neuro) Psychiatric: Psychiatric: Reports no additional psychiatric complaints and Reports as per HPI Endocrine: Endocrine: Denies cold intolerance, Denies fatigue, Denies flushing, Denies heat intolerance, Denies polyphagia, Denies polydipsia and Denies palpitations Hematologic/Lymphatic: Hematologic/Lymphatic: Reports no additional hematologic/lymphatic complaints and Reports as per HPI Allergic/Immunologic: Allergic/Immunologic: Reports no additional allergic/immunologic complaints, Reports as per HPI and Reports wheezing Exam Narrative: General: Pt is alert awake and in NAD Lungs/Chest: Trachea central Clear BS B/L, no wheezing on exam today, no respiratory distress no tachypnea no use of accessory muscles Cardiac: RRR. Normal S1 S2. No murmurs Circulation: Pedal pulses are intact and symmetrical. Abdomen: Normal bowel sounds.. Soft. NT. ND. Extremities: No clubbing, cyanosis Warm, trace pedal edema, chronic venous stasis changes : Street in place Neurologic: Follows commands. Moves all 4 extremities PERRL AO x3 Skin: No Rash Const: General: cooperative, comfortable, no acute distress, well developed, alert, awake, ill appearing chronically, average body
--- NOTE | 2023-03-01 13:23 | PM.DS ---
DS: Admitting Diagnosis Discharge Date 03/01/23 Admitting Diagnosis CHF exacerbation DS: Discharge Diagnosis Discharge Diagnosis (1) Hyperkalemia: Code(s): E87.5 - Hyperkalemia Status: Resolved (2) COPD (chronic obstructive pulmonary disease): Code(s): J44.9 - Chronic obstructive pulmonary disease, unspecified Status: Acute (3) Chronic diastolic (congestive) heart failure: Code(s): I50.32 - Chronic diastolic (congestive) heart failure Status: Acute DS: Summary Hospital Course Hospital Course: Assessment and Plan (1) Type 2 diabetes mellitus with hyperglycemia: ?Qualifiers: ?Diabetes mellitus termite control servicer insulin use:?with alf use? Qualified Code(s):?E11.65 - Type 2 diabetes mellitus with hyperglycemia; Z79.4 - termite exterminator (current) use of insulin ?Code(s): E11.65 - Type 2 diabetes mellitus with hyperglycemia ?Status:?Chronic ?Assessment and Plan: Correction: patient had hyperglycemia and no hypoglycemia continue home regimen, BG markeldy improved (2) COPD exacerbation: ?Code(s): J44.1 - Chronic obstructive pulmonary disease with (acute) exacerbation ?Status:?Acute ?Assessment and Plan: continue bronchodilators, discharged on steroid taper, Prednisone 40mg decrease by 10mg q3 days till 10mg then 5mg x3 days and stop (3) Hyperkalemia: ?Code(s): E87.5 - Hyperkalemia ?Status:?Resolved ?Assessment and Plan: resolved with dialysis (4) End stage renal disease: ?Code(s): N18.6 - End stage renal disease ?Status:?Acute ?Assessment and Plan: on dialysis Nephrology following for dialysis (5) CHF (congestive heart failure): ?Code(s): I50.9 - Heart failure, unspecified ?Status:?Acute ?Assessment and Plan: Chest x-ray showed mild interstitial edema which was likely contributing to the wheezing although patient was on room air She was dialyzed yesterday and 3.5 L fluid was removed.? getting dialysed today again and Patient on room air and will discharge and continue dialysis outpatient. F/u with PCP in 3-5 days F/u with nephrology as instructed Time Spent with Patient Time attestation: Total time spent providing and/or coordinating discharge services: DS: Data Data Completed and Pending Labs on day of discharge: Labs from last 24 hours 03/01/23 03/01/23 03/01/23 12:50 08:49 03:44 WBC 14.2 H RBC 3.93 L Hgb 11.8 L Hct 37.8 MCV 96.2 MCH 30.0 MCHC 31.2 L RDW 15.7 H Plt Count 210 MPV 10.3 Sodium 132 L Potassium 4.4 Chloride 92 L Carbon Dioxide 30 Anion Gap 10 BUN 63 H Creatinine 5.40 H Estim Creat Clear Calc 10 Estimated GFR 8 L Glucose 220 H POC Capillary Glucose 174 H 190 H Calcium 8.7 Phosphorus 4.9 H Magnesium 1.8 Total Bilirubin 0.5 AST 29 ALT 25 Alkaline Phosphatase 129 H Total Protein 8.0 Albumin 3.9 Hep Bs Antigen Hep Bs Antibody 02/28/23 02/28/23 02/28/23 20:59 19:13 17:21 WBC RBC Hgb Hct MCV MCH MCHC RDW Plt Count MPV Sodium Potassium Chloride Carbon Dioxide Anion Gap BUN Creatinine Estim Creat Clear Calc Estimated GFR Glucose POC Capillary Glucose 127 H 140 H 105 Calcium Phosphorus Magnesium Total Bilirubin AST ALT Alkaline Phosphatase Total Protein Albumin Hep Bs Antigen Hep Bs Antibody 02/28/23 02/28/23 02/28/23 16:15 15:01 13:32 WBC RBC Hgb Hct MCV MCH MCHC RDW Plt Count MPV Sodium Potassium Chloride Carbon Dioxide Anion Gap BUN Creatinine Estim Creat Clear Calc Estimated GFR Glucose POC Capillary Glucose 98 88 184 H Calcium Phosphorus Magnesium Total Bilirubin AST ALT Alkaline Phosphatase Total Protein Albumin Hep
== END 2023-03-01 14:30 | disposition home or self-care (01) | DRG 190 ==
LOC: ANHED 12:24 → ANH2MED 20:22 → ANHICU 02-28 10:46
PROVIDERS: Internal Medicine; Internal Medicine Nephrology; Admitting Provider Internal Medicine; Emergency Provider Emergency Medicine; PCP Family Medicine; Visit Provider Internal Medicine
DX: J44.1 Chronic obstructive pulmonary disease with (acute) exacerbation (principal); N18.6 End stage renal disease; J45.901 Unspecified asthma with (acute) exacerbation; I13.2 Hypertensive heart and chronic kidney disease with heart failure and with stage 5 chronic kidney disease, or end stage renal disease; I50.32 Chronic diastolic (congestive) heart failure; Z99.2 Dependence on renal dialysis; E11.22 Type 2 diabetes mellitus with diabetic chronic kidney disease; E11.65 Type 2 diabetes mellitus with hyperglycemia; E11.42 Type 2 diabetes mellitus with diabetic polyneuropathy; E87.5 Hyperkalemia; I25.10 Atherosclerotic heart disease of native coronary artery without angina pectoris; K21.9 Gastro-esophageal reflux disease without esophagitis; K22.70 Barrett's esophagus without dysplasia; E03.9 Hypothyroidism, unspecified; T38.0X5A Adverse effect of glucocorticoids and synthetic analogues, initial encounter; M17.12 Unilateral primary osteoarthritis, left knee; F41.1 Generalized anxiety disorder; F32.A Depression, unspecified; Z20.822 Contact with and (suspected) exposure to COVID-19; Z87.891 Personal history of nicotine dependence; Z86.718 Personal history of other venous thrombosis and embolism; Z86.73 Personal history of transient ischemic attack (TIA), and cerebral infarction without residual deficits; Z79.01 Long term (current) use of anticoagulants; Z79.4 Long term (current) use of insulin
CPT/HCPCS: 36415; 36600; 71046; 80048; 80053; 82140; 82805; 82948; 83605; 83735; 83880; 84100; 84484; 85025; 85027; 85610; 85730; 86706; 87340; 87636; 93005; 94640; 96365; 96366; 96367; 96375; 96376; 99285; A9270; G0257; G0378; J0456; J1644; J1815; J2930; J7030; J7512; P9047

== ENCOUNTER 2023-06-11 20:54 | Emergency (ER) | payer MEDICARE, SELFPAY ==
[2023-06-11 21:04] VITALS: BP 117/89; PULSE 64; RESP 20; TEMP 36.2; O2SAT 98
--- NOTE | 2023-06-11 22:25 | PC.NURSE ---
Pts finger lac has stopped bleeding. taking pt home with instructions on bleeding
== END 2023-06-11 22:37 | disposition left against medical advice (07) ==
LOC: ANHED 22:34
PROVIDERS: PCP Family Medicine
DX: S61.201A Unspecified open wound of left index finger without damage to nail, initial encounter (principal)
CPT/HCPCS: 99199

== ENCOUNTER 2023-06-26 06:26 | Inpatient (IN) | payer MEDICARE, SELFPAY ==
[2023-06-26] VITALS (41 sets, daily range): BP systolic 113–205; BP diastolic 38–77; PULSE 57–88; RESP 12–24; TEMP 36.6–37; O2SAT 88–100; BMI 41.1
--- NOTE | ~2023-06-26 | XR_ITS ---
Clinical Indication: Shortness of breath PA and lateral views of the chest: Comparison: 02/27/2023 Findings: Minimal pleural effusions are present. Cardiomediastinal silhouette is within normal limit s. Bones and soft tissues are unremarkable. Impression: Minimal pleural effusions. Reviewed, dictated and finalized at location . [facility] Impression: Minimal pleural effusions.
--- NOTE | ~2023-06-26 | XR_ITS ---
Portable chest x-ray Comparison: 06/26/2023 Clinical History: Respiratory failure Findings: There is mild worsening haziness, especially left perihilar region and right lung base. C ardiomediastinal silhouette is stable. Bones and soft tissues are unremarkable. Impression: Mild worsening pulmonary haziness, as above. Correlate for developing pulmonary edema or infection. Reviewed, dictated and finalized at location . [employer] Impression: Mild worsening pulmonary haziness, as above. Correlate for developing pulmonary edema or infection.
--- NOTE | 2023-06-26 06:49 | ECG_ITS ---
Measurements Intervals [place] Rate: 65 P: 30 OK: 179 QRS: -24 QRSD: 115 T: 60 QT: 447 QTc: 468 Interpretive Statements SINUS RHYTHM MODERATE INTRAVENTRICULAR CONDUCTION DELAY [105+ ms QRS DURATION, 80+ ms Q/S IN V1/V2, NO Q AND 60+ ms R IN I/aVL/V5/V6] COMPARED TO ECG 02/28/2023 10:40:47 NO SIGNIFICANT CHANGES Electronically Signed On 06-26-2023 15:35:02 INSIDE PLANT SUPERVISOR by Zuleima Ye M.D.
[2023-06-26 08:30] LABS: Basophils Absolute Auto 0.1 K/mm3 (0.0-0.1); Basophils Percent Auto 1.1 % (0.2-1.2); Eosinophils Absolute Auto 1.2 K/mm3 (0-0.3); Hematocrit 37.6 % (37.0-47.0); Hemoglobin 11.4 g/dL (12.0-15.0); Immature Granulocyte Absolute 0.02 K/mm3 (0.00-0.031); Immature Granulocyte Percent A 0.2 % (0-0.5); Lymphocytes Absolute Auto 1.29 K/mm3 (0.9-3.2); Mean Corpuscular HGB Conc 30.3 g/dl (32-36); Mean Corpuscular Hemoglobin 30.9 pg (26-34); Mean Corpuscular Volume 101.9 fl (80-100); Mean Platelet Volume 10.6 fl (7.4-10.4); Monocytes Absolute Auto 0.7 K/mm3 (0.1-0.6); Monocytes Percent Auto 6.6 % (2.6-8.5); Neutrophils Absolute Auto 6.7 K/mm3 (1.3-6.7); Neutrophils Percent Auto 67.1 % (45.5-73.1); Platelet Count Result 221 k/mm3 (150-375); Red Blood Count 3.69 M/mm3 (4.2-5.4); Red Cell Distribution Width 14.6 % (11.5-14.5); White Blood Count 9.9 K/mm3 (4.5-10.0)
[2023-06-26 09:38] LABS: Alanine Aminotransferase 15 U/L (6-35); Albumin Level 4.5 g/dL (3.5-5.1); Alkaline Phosphatase 114 U/L (38-126); Anion Gap 7 mmol/L (8-16); Aspartate Amino Transferase 30 U/L (14-36); Bilirubin,Total 0.6 mg/dL (0.2-1.3); Blood Urea Nitrogen 64 mg/dL (7-17); Calcium 9.5 mg/dL (8.4-10.2); Carbon Dioxide 31 mmol/L (22-30); Chloride 96 mmol/L (98-107); Estimated CRCL calculation 8 ml/min; Estimated Glomerular Filt Rate 5; Glucose 278 mg/dL (65-110); Potassium 6.8 mmol/L (3.4-5.0); Sodium 134 mmol/L (137-145)
[2023-06-26] MEDS: ALBUTEROL SULFATE NEB 2.5 MG/3 ML INH INHALATION ×2 (10:08→14:03)
[2023-06-26] MEDS: IPRATROPIUM BR 0.02% INH SOLN 0.5 MG/2.5 ML VIAL INHALATION ×2 (10:08→14:03)
[2023-06-26 10:15] LABS: Alveolar/Arterial O2 Gradient 52.2 mmHg; Base Excess ABG 0.3 mEq/l (+/-2.0); Fractional Inspired Oxygen 52 %; HCO3 ABG 27.6 mEq/l (22.0-26.0); Oxygen Content ABG 17.3 %vol (16.0-22.0); Oxygen Saturation ABG 99.5 % (95.0-100.0); Oxyhemoglobin 97.1 % THb (90.0-100.0); PCO2 ABG 57.6 mmHg (35.0-45.0); PO2 ABG 254.1 mmHg (80.0-100.0); PO2 FiO2 Ratio Arterial Blood 4.89 %; Total Hemoglobin 12.2 g/dL (12.0-18.0)
[2023-06-26 10:16] LABS: Site Drawn RIGHT BRACHIAL
[2023-06-26 10:17] LABS: Device OTHER DEVICE
[2023-06-26 10:19] LABS: pH ABG 7.299 (7.350-7.450)
[2023-06-26] MEDS: CALCIUM GLUCONATE 1,000 MG/10 ML VIAL 1000 MG IV PUSH (10:28)
[2023-06-26] MEDS: DEXTROSE 50% 25 GM/50 ML SYRINGE IV PUSH (10:28)
[2023-06-26] MEDS: INSULIN HUMAN REGULAR (*BKC) 100 UNITS/ML 10 UNITS IV PUSH (10:29)
[2023-06-26] MEDS: SODIUM ZIRCONIUM CYCLOSILICATE 10 GM POWD.PACK PO (10:29)
--- NOTE | 2023-06-26 10:51 | ED.SOB ---
HPI - SOB/Dyspnea General Chief Complaint: Shortness of Breath/Dyspnea Stated Complaint: shortness of breath Time Seen by Provider: 06/26/23 06:57 Source: patient and family Mode of arrival: wheelchair Limitations: no limitations History of Present Illness HPI Narrative: 72-year-old with a history of CAD COPD, ESRD on hemodialysis scheduled for dialysis this morning comes in with 3 day history of shortness of breath progressively got worse this morning she states that she is extremely short of breath. She denies any fever or chills. No history of cough. Denies any abdominal pain has occasional nausea MD elicited complaint: shortness of breath Pertinent past history: COPD and congestive heart failure Timing: constant Severity: severe Exacerbating factors: lying flat Relieving factors: nothing and oxygen Known history of: COPD and congestive heart failure Associated symptoms: denies other symptoms Treatment prior to arrival: none Related Data Home Medications Medication Instructions Recorded Confirmed fluticasone propionate 50 2 spray intranasal DAILY 03/19/19 06/13/23 mcg/actuation nasal spray,suspension coenzyme Q10 10 mg capsule (Co 10 mg PO DAILY 10/04/22 06/13/23 Q-10) furosemide 80 mg tablet (Lasix) 80 mg PO BID 12/23/22 06/13/23 calcium acetate(phosphat bind) 667 667 mg PO TID 02/27/23 06/13/23 mg capsule fluticasone 500 mcg-salmeterol 50 1 inh inhalation HS 02/27/23 06/13/23 mcg/dose blistr powdr for inhalation (Wix[facility] Inhub) fluconazole 150 mg tablet 150 mg PO ONCE PRN 05/02/23 06/13/23 Allergies Allergy/AdvReac Type Severity Reaction Status Date / Time nickel Allergy Intermediate hives and Verified 06/13/23 13:49 itchy rash nifedipine Allergy Intermediate palpitation Verified 06/13/23 13:49 s Sulfa (Sulfonamide Allergy Intermediate Urticaria Verified 06/13/23 13:49 Antibiotics) and hives diphenhydramine AdvReac Intermediate restless Verified 06/13/23 13:49 legs [id number] Reductase AdvReac Intermediate muscle Verified 06/13/23 13:49 Inhibitor cramps [Qyxnqtx-Uea-Btv Reductase Inhibitor] CALCIUMCHANNEL AdvReac Intermediate SEE COMMIT Uncoded 06/13/23 13:49 Review of Systems Review of Systems: All systems reviewed & are unremarkable except as noted in HPI and below Constitutional: Constitutional: Reports no additional constitutional complaints Eyes: Eyes: Reports no additional eye complaints ENT: Reports system reviewed and no additional complaints, except as documented Cardiovascular: Cardiovascular: Reports no additional cardiovascular complaints Respiratory: Respiratory: Reports as per HPI Gastrointestinal: Gastrointestinal: Reports no additional gastrointestinal complaints Musculoskeletal: Musculoskeletal: Reports no additional musculoskeletal complaints Neurologic: Reports system reviewed and no additional complaints, except as documented Endocrine: Endocrine: Reports no additional endocrine complaints [facility] Past Medical History Medical History 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 Chronic diastolic (congestive) heart failure Chronic kidney disease, stage 3 unspecified Chronic kidney disease, stage III (moderate) COPD (chronic obstructive pulmonary disease) Coronary artery disease involving [place] heart without angina pectoris Depression DVT (deep venous thrombosis) ESRD on dialysis ARACELY (generalized anxiety disorder) GERD without esophagitis History of stroke Hypertensive heart and CKD, ESRD on dialysis, w CHF Hypertensive heart disease with heart failure and stage 3 chronic kidney disease Hyponatremia Hypothyroid Left knee DJD Long-term insulin use Peripheral polyneuropathy Pre-ulcerative calluses Sepsis Type 2 diabetes mellitus with hyperglycemia Surgical History Surgical History History of gastrostomy tube placement a
[2023-06-26] MEDS: ONDANSETRON INJ 4 MG/2 ML VIAL IV PUSH (11:22)
--- NOTE | 2023-06-26 12:37 | WPDCNINT ---
Assessment and Plan Assessment and plan (1) Acute respiratory failure: Code(s): J96.00 - Acute respiratory failure, unspecified whether with hypoxia or hypercapnia Status: Acute Assessment and Plan: Patient presents the ER with 3 days of shortness of breath worsening this morning on 06/26/2023 prompting her to come to the ER. Patient was placed on BiPAP. Patient is supposed to get her dialysis today -coarse breath sounds and wheezing on exam, may require fluid removal with dialysis -started patient on Solu-Medrol for wheezing and possible COPD exacerbation -ABGs did reveal hypercapnia -continue BiPAP for now 17/11, 40% FiO2, will wean FiO2 to maintain O2 sats greater than 92% -will check procalcitonin, no pneumonia noted on chest x-ray, will hold off antibiotics (2) Acute hyperkalemia: Code(s): E87.5 - Hyperkalemia Status: Acute Assessment and Plan: Acute hyperkalemia likely related to end-stage renal disease on dialysis, -patient was treated with Lokelma, insulin and D50 and calcium gluconate. -currently sinus rhythm with rate in the 60s -patient was prior dialysis today, Nephrology is aware -recheck stat BMP (3) COPD (chronic obstructive pulmonary disease): Qualifiers: COPD type: unspecified COPD Qualified Code(s): J44.9 - Chronic obstructive pulmonary disease, unspecified Code(s): J44.9 - Chronic obstructive pulmonary disease, unspecified Status: Acute Assessment and Plan: COPD exacerbation, continue bronchodilators, Solu-Medrol (4) ESRD (end stage renal disease) on dialysis: Code(s): N18.6 - End stage renal disease; Z99.2 - Dependence on renal dialysis Status: Acute Assessment and Plan: Dialysis per Nephrology (5) Fluid overload: Code(s): E87.70 - Fluid overload, unspecified Status: Acute Assessment and Plan: Continue BiPAP for now, will require fluid removal with dialysis (6) Hypothyroidism (acquired): Code(s): E03.9 - Hypothyroidism, unspecified Status: Acute Assessment and Plan: Will continue levothyroxine Plan DVT prophylaxis: Apixaban Stress ulcer prophylaxis: Protonix Nutrition: NPO except meds Code Status: Full code Critical Care Time Spent: 48 minutes Due to a high probability of clinically significant, life threatening deterioration, the patient required my highest level of preparedness to intervene emergently and I personally spent this critical care time directly and personally managing the patient. This critical care time included obtaining a history; examining the patient; pulse oximetry; ordering and review of studies; arranging urgent treatment with development of a management plan; evaluation of patient's response to treatment; frequent reassessment; and discussions with other providers. It was exclusive of separately billable procedures and treating other patients and teaching time. Please see Assessment and Plan section and the rest of the note for further information on patient assessment and treatment This dictation may have been done utilizing a voice recognition system. Attempts have been made to correct errors. However, there may be uncorrected grammatical, spelling, and recognitions errors present. [employer] Consult Note Consult date: 06/26/23 Reason for consult: Acute respiratory distress likely related to volume overload, COPD exacerbation hypoxia, hyperkalemia HPI: Gregoria Rae is a 72 year old female with significant past medical history of end-stage renal disease on dialysis, COPD, coronary artery disease, history of DVT, depression, general anxiety disorder, history of stroke, heart failure, hyponatremia, hypothyroidism, diabetes with insulin use, peripheral neuropathy presented the ED on 06/26 with complaints of ongoing shortness of breath for 3 days which got worse this morning prompting her to come to the ER. She stated she had extreme shortness of breath, denies
[2023-06-26 12:43] LABS: Anion Gap 8 mmol/L (8-16); Blood Urea Nitrogen 65 mg/dL (7-17); Calcium 9.6 mg/dL (8.4-10.2); Carbon Dioxide 31 mmol/L (22-30); Chloride 97 mmol/L (98-107); Estimated CRCL calculation 8 ml/min; Estimated Glomerular Filt Rate 5; Glucose 184 mg/dL (65-110); Potassium 5.8 mmol/L (3.4-5.0); Sodium 136 mmol/L (137-145)
--- NOTE | 2023-06-26 12:50 | ADMGEN ---
This patient, Gregoria Rae, was admitted to Intensive Care Unit-6. Patient/family oriented to hospital policies and general routines including ID bracelet, bed and alarms, visiting hours, pain management, procedures, bathroom and other care routines, personal items, smoking policy, room service/diet, and visiting hours. Information on how to activate the Rapid Response Team has been discussed. Patient/Family are encouraged to report perceived risks to care and to ask questions if they do not understand what they are told or what they should do.
[2023-06-26] MEDS: methylPREDNISolone SOD SUCC 125 MG VIAL IV PUSH (13:02)
[2023-06-26 13:20] LABS: Hepatitis B Surface Anti Res Negative
[2023-06-26 13:28] LABS: NT Pro B Type Natriuretic Pept 3910 pg/mL (19.9-100)
[2023-06-26 13:33] LABS: Influenza A QL RT-PCR Negative (Negative); Influenza B QL RT-PCR Negative (Negative); RSV RNA, RT-PCR Negative (Negative); SARS-CoV-2 RNA PCR Negative (Negative)
[2023-06-26 13:36] LABS: Procalcitonin 0.2 ng/mL
[2023-06-26 14:09] LABS: MRSA (PCR) NOT DETECTED (NOT DETECTE)
--- NOTE | 2023-06-26 14:45 | PM.CNNEP ---
Assessment and Plan Assessment and plan (1) End stage renal disease: Code(s): N18.6 - End stage renal disease Status: Acute Assessment and Plan: HD today for her elevated K+ and fluid overload along with this being her scheduled treatment day copntinue T/T/S outpatient dialysis schedule follow electrolytes, volume status, and clearance (2) Acute respiratory failure: Code(s): J96.00 - Acute respiratory failure, unspecified whether with hypoxia or hypercapnia Status: Acute Assessment and Plan: multifactorial: COPD exacerbation fluid overload reactive airway disease BIPAP support as needed fluid removal with dialysis supplemental oxygen - wean as tolerated nebulizer treatments and steroids follow respiratory status (3) Acute hyperkalemia: Code(s): E87.5 - Hyperkalemia Status: Acute Assessment and Plan: s/p medical management dialysis today to fully correct follow repeat levels (4) COPD (chronic obstructive pulmonary disease): Qualifiers: COPD type: unspecified COPD Qualified Code(s): J44.9 - Chronic obstructive pulmonary disease, unspecified Code(s): J44.9 - Chronic obstructive pulmonary disease, unspecified Status: Acute Assessment and Plan: continue nebulizer treatments, steroids, and oxygen BiPAP support as needed follow respiratory status (5) Fluid overload: Code(s): E87.70 - Fluid overload, unspecified Status: Acute Assessment and Plan: known to have large fluid gains in between dialysis treatments HD today for electrolytes control and fluid removal possible HD again tomorrow depending on electrolytes and volume status (6) Hypertension: Code(s): I10 - Essential (primary) hypertension Status: Chronic Assessment and Plan: reasonable control at this time follow trend of hemodynamics (7) Type 2 diabetes mellitus with hyperglycemia: Qualifiers: Diabetes mellitus intermodal customer service insulin use: with prison use Qualified Code(s): E11.65 - Type 2 diabetes mellitus with hyperglycemia; Z79.4 - buttermaker helper (current) use of insulin Code(s): E11.65 - Type 2 diabetes mellitus with hyperglycemia Status: Chronic Assessment and Plan: follow accu-cheks glycemic control per hospitalists. I will continue follow the patient with you while she remains hospitalized and make further recommendations as deemed necessary. Thank you for allowing me to participate in care this patient. History of Present Illness Reason for Consult Consult date: 06/26/23 Reason for consult: end stage renal disease and hyperkalemia Chief Complaint Chief complaint: Respiratory distress, ESRD, Hyperkalemia History of Present Illness Narrative: The patient is a 72 year female with a past medical history as outlined presented to [facility] Emergency Room complaints of shortness of breath. The patient reports that for the last 3 days if not longer she has noted shortness of breath and progressive dyspnea with exertional activity that was significantly worse on the morning of admission. She has been using her inhalers and home nebulizer treatments without much benefit or improvement in her breathing. She denies any worsening swelling/ edema/ fluid retention and denies any recent cold/flu symptoms. She was scheduled for dialysis today but due to her worsening respiratory status and breathing, she came to the ER instead for further assessment. Workup and evaluation emergency room demonstrated the patient be in significant respiratory distress on arrival and she was immediately placed on BiPAP with some improvement in her respiratory status. Routine blood test demonstrated an essentially normal CBC but her chemistry was significant for an elevated BUN and creatinine consistent with her known history of end-stage renal disease as well as significant hyperkalemia wi
--- NOTE | 2023-06-26 14:45 | P.CONNP_ITS ---
Assessment and Plan Assessment and plan (1) End stage renal disease: Code(s): N18.6 - End stage renal disease Status: Acute Assessment and Plan: * HD today for her elevated K+ and fluid overload along with this being her scheduled treatment day * copntinue T/T/S outpatient dialysis schedule * follow electrolytes, volume status, and clearance (2) Acute respiratory failure: Code(s): J96.00 - Acute respiratory failure, unspecified whether with hypoxia or h ypercapnia Status: Acute Assessment and Plan: * multifactorial: * COPD exacerbation * fluid overload * reactive airway disease * BIPAP support as needed * fluid removal with dialysis * supplemental oxygen - wean as tolerated * nebulizer treatments and steroids * follow respiratory status (3) Acute hyperkalemia: Code(s): E87.5 - Hyperkalemia Status: Acute Assessment and Plan: * s/p medical management * dialysis today to fully correct * follow repeat levels (4) COPD (chronic obstructive pulmonary disease): Qualifiers: COPD type: unspecified COPD Qualified Code(s): J44.9 - Chronic obstructive pulmonary disease, unspecified Code(s): J44.9 - Chronic obstructive pulmonary disease, unspecified Status: Acute Assessment and Plan: * continue nebulizer treatments, steroids, and oxygen * BiPAP support as needed * follow respiratory status (5) Fluid overload: Code(s): E87.70 - Fluid overload, unspecified Status: Acute Assessment and Plan: * known to have large fluid gains in between dialysis treatments * HD today for electrolytes control and fluid removal * possible HD again tomorrow depending on electrolytes and volume status (6) Hypertension: Code(s): I10 - Essential (primary) hypertension Status: Chronic Assessment and Plan: * reasonable control at this time * follow trend of hemodynamics (7) Type 2 diabetes mellitus with hyperglycemia: Qualifiers: Diabetes mellitus senior care insulin use: with senior care use Qualified Code(s): E11.65 - Type 2 diabetes mellitus with hyperglycemia; Z79.4 - continuous churn buttermaker (current) use of insulin Code(s): E11.65 - Type 2 diabetes mellitus with hyperglycemia Status: Chronic Assessment and Plan: * follow accu-cheks * glycemic control per hospitalists. I will continue follow the patient with you while she remains hospitalized and make further recommendations as deemed necessary. Thank you for allowing me to participate in care this patient. History of Present Illness Reason for Consult Consult date: 06/26/23 Reason for consult: end stage renal disease and hyperkalemia Chief Complaint Chief complaint: Respiratory distress, ESRD, Hyperkalemia History of Present Illness Narrative: The patient is a 72 year female with a past medical history as outlined presented to [facility] Emergency Room complaints of shortness of breath. The patient reports that for the last 3 days if not longer she has noted shortness of breath and progressive dyspnea with exertional activity that was significantly worse on the morning of admission. She has been using her inhalers and home nebulizer treatments without much benefit or improvement in her breathing. She denies any worsening swelling/ edema/ fluid retention and denies any recent cold/flu symptoms. She was scheduled for dialysis today but due to her worsening respiratory status and breathing, she came to the ER inst ead for further asses
[2023-06-26 15:02] LABS: Hepatitis B Surface Antigen Negative (Negative)
--- NOTE | 2023-06-26 16:49 | PM.IMHP ---
H&P: HPI History of Present Illness Date/Time: 06/26/23 16:30 Chief Complaint: Shortness of breath. Narrative: This is a 72-year-old female with multiple medical problems including multiple medical problems including end-stage renal disease on hemodialysis, chronic obstructive pulmonary disease, coronary artery disease, heart failure with preserved ejection fraction, stroke, deep venous thrombosis, hypothyroidism, insulin-dependent diabetes, and other comorbidities who presented to the emergency department for evaluation of shortness of breath. She gives a 3 day history of progressive dyspnea on lesser and lesser exertion which was much worse this morning. She has been using her inhalers and nebulizers at home without much benefit. She has not noticed any significant swelling and denies recent cold and flu symptoms. She was due for dialysis today but due to her work of breathing she came to the ER instead. She appeared in distress on arrival and was placed on BiPAP immediately with improvement. Preliminary workup in the ED showed a low normal WBC count, stable hemoglobin, potassium 6.8, sodium 134, CO2 31, BUN 64, creatinine 7.30, glucose 278. ABG showed a pH of 7.29, pCO2 57.6, PO2 254, HC03 27. She was admitted to the ICU, is currently on dialysis the time my evaluation, and she reports feeling much better. She denies fever, chills, sweats, cold and flu symptoms, chest pain, pleuritic pain, palpitations, nausea, vomiting, diarrhea, and dysuria (she still makes some urine). Review of Systems Review of Systems: Twelve systems were reviewed and are negative except for as per HPI. [facility] Past Medical History Medical History (Updated 06/26/23 @ 17:06 by Perla Pepper PA-C) 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 Cerebrovascular accident Chronic anticoagulation Chronic diastolic (congestive) heart failure Chronic obstructive pulmonary disease Coronary artery disease involving [place] heart without angina pectoris Deep venous thrombosis Depression End-stage renal disease on hemodialysis Generalized anxiety disorder GERD without esophagitis Hypothyroidism Insulin dependent type 2 diabetes mellitus Obstructive sleep apnea Paroxysmal atrial fibrillation Peripheral polyneuropathy Surgical History Surgical History (Updated 06/26/23 @ 17:00 by Perla Pepper PA-C) History of cataract extraction History of cholecystectomy History of gastrostomy tube placement and removal History of tonsillectomy History of tracheostomy Family History Family History Father Hypertension Family history of coronary artery disease Sibling Hypertension Family history of coronary artery disease Mother Cerebrovascular accident Other Asthma Depression Family history of Alzheimer's disease Family history of arthritis Family history of cardiovascular disease Family history of lymphoma Family history of obesity Family history of seizure disorder Social History Social History (Updated 06/26/23 @ 16:56 by Perla Pepper PA-C) Social History: Surrogate medical decision maker: Anjum (spouse) or Gwen (daughter) Kyra. Code status: Full code. Smoking packs per day: 2 Smoking cigarettes per day: 40.0 Years smoked: 30 Smoking pack-years: 60.00 Smoking status: Former smoker Tobacco type: cigarettes Second hand tobacco smoke exposure: No Smoking end date: 05/07/89 Alcohol intake: never Drinks per week: 1 Substance use: former Substance use type: marijuana Last use: 01/05/2023 Do You Feel Safe in your Home?: Yes Lack of Transportation: No Lack of Food: Never True Current Housing: I Have Housing Concerned About Future Housing: No Difficulty Paying Gas/Electric Bills: No Difficulty Paying for Meds: No Currently Unemployed: No Education: High School Diploma/GED Difficulty w/ Childcare or Family Care: No Living arrangements:
[2023-06-26] MEDS: FUROSEMIDE INJ 100 MG/10 ML VIAL 80 MG IV PUSH (18:46)
[2023-06-26] MEDS: methylPREDNISolone SOD SUCC 125 MG VIAL 40 MG IV PUSH (18:47)
[2023-06-26] MEDS: INSULIN ASPART (*BKC) 100 UNITS/ML SUB-Q (18:47)
[2023-06-26 18:53] LABS: Glucose Point of Care 229 mg/dl (65-105)
[2023-06-26] MEDS: IPRATROPIUM 0.5 MG/ALBUTEROL SULFATE 2.5 MG AMPUL.NEB 3 ML INHALATION (21:10)
[2023-06-26] MEDS: TOLNAFTATE 1% POWDER 45 GM BTL 1 APPLIC TOPICAL (21:31)
[2023-06-26] MEDS: APIXABAN 2.5 MG TABLET PO (21:31)
[2023-06-26] MEDS: INSULIN GLARGINE (*BKC) 100 UNITS/ML 28 UNITS SUB-Q (21:37)
[2023-06-26 22:46] LABS: Glucose Point of Care 250 mg/dl (65-105)
[2023-06-27] VITALS (37 sets, daily range): BP systolic 109–155; BP diastolic 29–93; PULSE 52–100; RESP 11–21; TEMP 36.3–37.3; O2SAT 90–100
[2023-06-27] MEDS: methylPREDNISolone SOD SUCC 125 MG VIAL 40 MG IV PUSH ×4 (00:50→19:35)
[2023-06-27] MEDS: INSULIN ASPART (*BKC) 100 UNITS/ML SUB-Q ×5 (00:50→19:29)
[2023-06-27 01:01] LABS: Glucose Point of Care 310 mg/dl (65-105)
[2023-06-27] MEDS: IPRATROPIUM 0.5 MG/ALBUTEROL SULFATE 2.5 MG AMPUL.NEB 3 ML INHALATION ×3 (02:58→20:42)
[2023-06-27 04:31] LABS: Basophils Percent Auto 0.2 % (0.2-1.2); Hematocrit 37.8 % (37.0-47.0); Hemoglobin 11.6 g/dL (12.0-15.0); Immature Granulocyte Absolute 0.04 K/mm3 (0.00-0.031); Immature Granulocyte Percent A 0.5 % (0-0.5); Lymphocytes Absolute Auto 0.51 K/mm3 (0.9-3.2); Mean Corpuscular HGB Conc 30.7 g/dl (32-36); Mean Corpuscular Hemoglobin 30.9 pg (26-34); Mean Corpuscular Volume 100.5 fl (80-100); Monocytes Absolute Auto 0.1 K/mm3 (0.1-0.6); Monocytes Percent Auto 0.6 % (2.6-8.5); Neutrophils Absolute Auto 7.8 K/mm3 (1.3-6.7); Neutrophils Percent Auto 92.7 % (45.5-73.1); Platelet Count Result 210 k/mm3 (150-375); Red Blood Count 3.76 M/mm3 (4.2-5.4); Red Cell Distribution Width 14.3 % (11.5-14.5); White Blood Count 8.4 K/mm3 (4.5-10.0)
[2023-06-27 04:51] LABS: Alanine Aminotransferase 16 U/L (6-35); Alkaline Phosphatase 106 U/L (38-126); Anion Gap 9 mmol/L (8-16); Aspartate Amino Transferase 22 U/L (14-36); Bilirubin,Total 0.5 mg/dL (0.2-1.3); Blood Urea Nitrogen 46 mg/dL (7-17); Calcium 8.8 mg/dL (8.4-10.2); Carbon Dioxide 30 mmol/L (22-30); Chloride 96 mmol/L (98-107); Estimated CRCL calculation 11 ml/min; Estimated Glomerular Filt Rate 9; Glucose 303 mg/dL (65-110); Magnesium 2.1 mg/dL (1.6-2.3); Phosphorus 5.1 mg/dL (2.5-4.5); Potassium 5.3 mmol/L (3.4-5.0); Sodium 135 mmol/L (137-145)
[2023-06-27 05:58] LABS: Glucose Point of Care 278 mg/dl (65-105)
[2023-06-27] MEDS: LEVOTHYROXINE SODIUM 100 MCG, LEVOTHYROXINE SODIUM 75 MCG 175 MCG PO (05:58)
[2023-06-27] MEDS: ALBUTEROL SULFATE NEB 2.5 MG/3 ML INH 10 MG INHALATION (07:40)
[2023-06-27] MEDS: SODIUM ZIRCONIUM CYCLOSILICATE 10 GM POWD.PACK PO (07:51)
[2023-06-27] MEDS: DEXTROSE 50% 25 GM/50 ML SYRINGE IV PUSH (07:51)
[2023-06-27] MEDS: PANTOPRAZOLE 40 MG TABLET PO (07:51)
[2023-06-27] MEDS: APIXABAN 2.5 MG TABLET PO (07:51)
[2023-06-27] MEDS: FUROSEMIDE INJ 100 MG/10 ML VIAL 80 MG IV PUSH ×2 (07:51→19:35)
[2023-06-27] MEDS: TOLNAFTATE 1% POWDER 45 GM BTL 1 APPLIC TOPICAL ×2 (07:52→20:51)
[2023-06-27] MEDS: INSULIN HUMAN REGULAR (*BKC) 100 UNITS/ML 10 UNITS IV PUSH (07:52)
[2023-06-27] MEDS: INSULIN GLARGINE (*BKC) 100 UNITS/ML 15 UNITS SUB-Q (07:52)
--- NOTE | 2023-06-27 07:52 | WPDINTPN ---
Progress Note: A&P Assessment and Plan (1) Acute respiratory failure: Code(s): J96.00 - Acute respiratory failure, unspecified whether with hypoxia or hypercapnia Status: Acute Assessment and Plan: Patient presents the ER with 3 days of shortness of breath worsening this morning on 06/26/2023 prompting her to come to the ER. Patient was placed on BiPAP. Patient is supposed to get her dialysis on the day of admission (Sunday, , Sunday) -patient was dialyzed 05/08/2023 with 4000 mL in fluid removal with significant improvement in her shortness of breath. Currently on 1 L nasal cannula -will discontinue Solu-Medrol as she is not wheezing anymore -BiPAP p.r.n. -procalcitonin was 0.2, will hold off antibiotics (2) Acute hyperkalemia: Code(s): E87.5 - Hyperkalemia Status: Acute Assessment and Plan: Acute hyperkalemia likely related to end-stage renal disease on dialysis, -patient was treated with Lokelma, insulin and D50 and calcium gluconate in the ER on admission -currently sinus rhythm with rate in the 60s -06/27: Potassium is 5.3, will treat with Lokelma, insulin D50 and albuterol (3) COPD (chronic obstructive pulmonary disease): Qualifiers: COPD type: unspecified COPD Qualified Code(s): J44.9 - Chronic obstructive pulmonary disease, unspecified Code(s): J44.9 - Chronic obstructive pulmonary disease, unspecified Status: Acute Assessment and Plan: COPD exacerbation, continue bronchodilators, Solu-Medrol (4) ESRD (end stage renal disease) on dialysis: Code(s): N18.6 - End stage renal disease; Z99.2 - Dependence on renal dialysis Status: Acute Assessment and Plan: Dialysis per Nephrology (5) Fluid overload: Code(s): E87.70 - Fluid overload, unspecified Status: Acute Assessment and Plan: Continue BiPAP for now, chest x-ray shows pulmonary edema, (6) Hypothyroidism (acquired): Code(s): E03.9 - Hypothyroidism, unspecified Status: Acute Assessment and Plan: Will continue levothyroxine Plan DVT prophylaxis: Apixaban Stress ulcer prophylaxis: Protonix Nutrition: Renal diet Code Status: Full code Critical Care Time Spent: 32minutes Patient may transfer out of the ICU Due to a high probability of clinically significant, life threatening deterioration, the patient required my highest level of preparedness to intervene emergently and I personally spent this critical care time directly and personally managing the patient. This critical care time included obtaining a history; examining the patient; pulse oximetry; ordering and review of studies; arranging urgent treatment with development of a management plan; evaluation of patient's response to treatment; frequent reassessment; and discussions with other providers. It was exclusive of separately billable procedures and treating other patients and teaching time. Please see Assessment and Plan section and the rest of the note for further information on patient assessment and treatment This dictation may have been done utilizing a voice recognition system. Attempts have been made to correct errors. However, there may be uncorrected grammatical, spelling, and recognitions errors present. Subjective Date/time seen: 06/27/23 07:52 Interval history: Reason for consult: Acute respiratory distress likely related to volume overload, COPD exacerbation hypoxia, hyperkalemia 06/27/2023: Patient seen and examined the ICU, she is awake, alert, oriented, states he feels much better. On 1 L nasal cannula good O2 sat, hemodynamically stable, afebrile. Was dialyzed yesterday with 4000 mL in fluid removal. Denies any chest pain, shortness a breath abdominal pain, nausea, vomiting Review of Systems Review of Systems: All systems reviewed & are unremarkable except as noted in HPI and below Exam Narrative: General: For pleasant female on BiPAP RAVEN
[2023-06-27 07:56] LABS: Glucose Point of Care 322 mg/dl (65-105)
[2023-06-27 08:24] LABS: Free T4 Free Thyroxine Reflex 1.38 ng/dL (0.78-2.19)
[2023-06-27 09:04] LABS: Total Triiodothyronine (T3) 0.92 NG/ML (0.97-1.69)
[2023-06-27 09:17] LABS: Anion Gap 10 mmol/L (8-16); Blood Urea Nitrogen 50 mg/dL (7-17); Carbon Dioxide 29 mmol/L (22-30); Chloride 96 mmol/L (98-107); Estimated CRCL calculation 10 ml/min; Estimated Glomerular Filt Rate 8; Glucose 336 mg/dL (65-110); Sodium 135 mmol/L (137-145)
[2023-06-27] MEDS: CALCIUM ACETATE 667 MG TABLET PO ×3 (09:45→19:35)
[2023-06-27] MEDS: FLUTICASONE PROPIONATE 0.05% NA SPR 16 GM BTL (*BKC) 2 SPRAY NASAL (09:45)
[2023-06-27] MEDS: GABAPENTIN 300 MG CAPSULE 900 MG PO (09:45)
[2023-06-27] MEDS: rOPINIRole HCL 1 MG TABLET 2 MG PO (09:52)
[2023-06-27] MEDS: UMECLIDINIUM BROMIDE 62.5 MCG ELLIPTA 1 PUFF INHALATION (10:42)
[2023-06-27] MEDS: FLUTICASONE/SALMETEROL 230-21 MCG INHALER 1 PUFF 2 PUFF INHALATION ×2 (10:42→20:46)
[2023-06-27 11:51] LABS: Glucose Point of Care 323 mg/dl (65-105)
--- NOTE | 2023-06-27 12:58 | PM.IMPN ---
Progress Note: A&P Assessment and Plan (1) Acute respiratory failure: Code(s): J96.00 - Acute respiratory failure, unspecified whether with hypoxia or hypercapnia Status: Acute Assessment and Plan: Patient presents the ER with 3 days of shortness of breath worsening this morning on 06/26/2023 prompting her to come to the ER. Patient was placed on BiPAP. Patient is supposed to get her dialysis on the day of admission (Sunday, , Sunday) -patient was dialyzed 05/08/2023 with 4000 mL in fluid removal with significant improvement in her shortness of breath. Currently on 1 L nasal cannula -will discontinue Solu-Medrol as she is not wheezing anymore -BiPAP p.r.n. -procalcitonin was 0.2, will hold off antibiotics (2) Acute hyperkalemia: Code(s): E87.5 - Hyperkalemia Status: Acute Assessment and Plan: Acute hyperkalemia likely related to end-stage renal disease on dialysis, -patient was treated with Lokelma, insulin and D50 and calcium gluconate in the ER on admission -currently sinus rhythm with rate in the 60s -06/27: Potassium is 5.3, will treat with Lokelma, insulin D50 and albuterol (3) COPD (chronic obstructive pulmonary disease): Qualifiers: COPD type: unspecified COPD Qualified Code(s): J44.9 - Chronic obstructive pulmonary disease, unspecified Code(s): J44.9 - Chronic obstructive pulmonary disease, unspecified Status: Acute Assessment and Plan: COPD exacerbation, continue bronchodilators, Solu-Medrol (4) ESRD (end stage renal disease) on dialysis: Code(s): N18.6 - End stage renal disease; Z99.2 - Dependence on renal dialysis Status: Acute Assessment and Plan: Dialysis per Nephrology (5) Fluid overload: Code(s): E87.70 - Fluid overload, unspecified Status: Acute Assessment and Plan: Continue BiPAP for now, chest x-ray shows pulmonary edema, (6) Hypothyroidism (acquired): Code(s): E03.9 - Hypothyroidism, unspecified Status: Acute Assessment and Plan: Will continue levothyroxine Plan DVT prophylaxis: Apixaban Stress ulcer prophylaxis: Protonix Nutrition: Renal diet Code Status: Full code Critical Care Time Spent: 32minutes Patient may transfer out of the ICU Due to a high probability of clinically significant, life threatening deterioration, the patient required my highest level of preparedness to intervene emergently and I personally spent this critical care time directly and personally managing the patient. This critical care time included obtaining a history; examining the patient; pulse oximetry; ordering and review of studies; arranging urgent treatment with development of a management plan; evaluation of patient's response to treatment; frequent reassessment; and discussions with other providers. It was exclusive of separately billable procedures and treating other patients and teaching time. Please see Assessment and Plan section and the rest of the note for further information on patient assessment and treatment This dictation may have been done utilizing a voice recognition system. Attempts have been made to correct errors. However, there may be uncorrected grammatical, spelling, and recognitions errors present. Subjective Date/time seen: 06/27/23 12:58 Interval history: 72-year-old female with multiple medical problems including multiple medical problems including end-stage renal disease on hemodialysis, chronic obstructive pulmonary disease, coronary artery disease, heart failure with preserved ejection fraction, stroke, deep venous thrombosis, hypothyroidism, insulin-dependent diabetes, and other comorbidities who presented to the emergency department for evaluation of shortness of breath. She gives a 3 day history of progressive dyspnea on lesser and lesser exertion which was much worse this morning. She has been using her inhalers and nebulizers at home without much ingrid
--- NOTE | 2023-06-27 13:07 | PM.IMPN ---
Progress Note: A&P Assessment and Plan (1) Chronic anticoagulation: Code(s): Z79.01 - typesetter apprentice (current) use of anticoagulants Status: Acute (2) Volume overload: Code(s): E87.70 - Fluid overload, unspecified Status: Acute (3) Obstructive sleep apnea: Code(s): G47.33 - Obstructive sleep apnea (adult) (pediatric) Status: Acute (4) Paroxysmal atrial fibrillation: Code(s): I48.0 - Paroxysmal atrial fibrillation Status: Acute (5) Hypothyroidism: Code(s): E03.9 - Hypothyroidism, unspecified Status: Acute (6) Cerebrovascular accident: Code(s): I63.9 - Cerebral infarction, unspecified Status: Acute (7) Acute respiratory failure: Code(s): J96.00 - Acute respiratory failure, unspecified whether with hypoxia or hypercapnia Status: Acute Assessment and Plan: Patient presents the ER with 3 days of shortness of breath worsening this morning on 06/26/2023 prompting her to come to the ER. Patient was placed on BiPAP. Pt is down to RA now doing well. (8) Acute hyperkalemia: Code(s): E87.5 - Hyperkalemia Status: Acute Assessment and Plan: Acute hyperkalemia likely related to end-stage renal disease on dialysis, -patient was treated with Lokelma, insulin and D50 and calcium gluconate in the ER on admission - potassium has normalised (9) COPD (chronic obstructive pulmonary disease): Qualifiers: COPD type: unspecified COPD Qualified Code(s): J44.9 - Chronic obstructive pulmonary disease, unspecified Code(s): J44.9 - Chronic obstructive pulmonary disease, unspecified Status: Acute Assessment and Plan: COPD exacerbation, continue bronchodilators, Solu-Medrol (10) ESRD (end stage renal disease) on dialysis: Code(s): N18.6 - End stage renal disease; Z99.2 - Dependence on renal dialysis Status: Acute Assessment and Plan: Dialysis per Nephrology next treatment is tomorrow (11) Hypothyroidism (acquired): Code(s): E03.9 - Hypothyroidism, unspecified Status: Acute Assessment and Plan: Will continue levothyroxine Plan DVT prophylaxis: Apixaban Stress ulcer prophylaxis: Protonix Nutrition: Renal diet Plan darshana Clark Date/time seen: 06/27/23 13:07 Interval history: 72-year-old female with multiple medical problems including multiple medical problems including end-stage renal disease on hemodialysis, chronic obstructive pulmonary disease, coronary artery disease, heart failure with preserved ejection fraction, stroke, deep venous thrombosis, hypothyroidism, insulin-dependent diabetes, and other comorbidities who presented to the emergency department for evaluation of shortness of breath. She gives a 3 day history of progressive dyspnea on lesser and lesser exertion which was much worse this morning. She has been using her inhalers and nebulizers at home without much benefit. She has not noticed any significant swelling and denies recent cold and flu symptoms. She was due for dialysis today but due to her work of breathing she came to the ER instead. She appeared in distress on arrival and was placed on BiPAP immediately with improvement. Pt is now on room air doing well plan to have dialysis emi and dc. Pt admitted for COPD exacerbation and CHF exacerbation. Pt was on bipap doing better today can be down graded to medical floor. Review of Systems Review of Systems: SOB improving Objective Data Vital Signs Vital Signs: Vital Signs - 24 hr 06/26/23 14:04 06/26/23 14:00 06/26/23 14:00 Temperature Pulse Rate 66 66 66 Respiratory Rate 24 H 16 Blood Pressure 159/68 H Pulse Oximetry 98 Oxygen Delivery Oxygen Flow Rate 06/26/23 14:16 06/26/23 14:30 06/26/23 14:27 Temperature 36.9 C Pulse Rate 64 64 Respiratory Rate 16 Blood Pressure 193/68 H 187/65 H Pulse Oximetry 100 Oxygen Delivery Nasal Cannula
--- NOTE | 2023-06-27 15:40 | PC.NURSE ---
Pt to dialysis via bed.
--- NOTE | 2023-06-27 16:11 | P.PNNP_ITS ---
Progress Note: A&P Assessment and Plan (1) End stage renal disease: Code(s): N18.6 - End stage renal disease Status: Acute Assessment and Plan: * HD tomorrow * HD today for further electrolyte control and fluid removal * continue T/T/S outpatient dialysis schedule * follow electrolytes, volume status, and clearance (2) Acute respiratory failure: Code(s): J96.00 - Acute respiratory failure, unspecified whether with hypoxia or hypercapnia Status: Acute Assessment and Plan: * significant clinical improvement * multifactorial: * COPD exacerbation * fluid overload * reactive airway disease * BIPAP support as needed * fluid removal with dialysis * supplemental oxygen - wean as tolerated * nebulizer treatments and steroids * follow respiratory status (3) Acute hyperkalemia: Code(s): E87.5 - Hyperkalemia Status: Acute Assessment and Plan: * s/p medical management * dialysis today to maintain stability * follow repeat levels (4) COPD (chronic obstructive pulmonary disease): Qualifiers: COPD type: unspecified COPD Qualified Code(s): J44.9 - Chronic obstructive pulmonary disease, unspecified Code(s): J44.9 - Chronic obstructive pulmonary disease, unspecified Status: Acute Assessment and Plan: * continue nebulizer treatments, steroids, and oxygen * BiPAP support as needed * follow respiratory status (5) Fluid overload: Code(s): E87.70 - Fluid overload, unspecified Status: Acute Assessment and Plan: * known to have large fluid gains in between dialysis treatments * HD yesterday for electrolytes control and fluid removal * HD today again (6) Hypertension: Code(s): I10 - Essential (primary) hypertension Status: Chronic Assessment and Plan: * reasonable control at this time * follow trend of hemodynamics (7) Type 2 diabetes mellitus with hyperglycemia: Qualifiers: Diabetes mellitus prison insulin use: with termite treater use Qualified Code(s): E11.65 - Type 2 diabetes mellitus with hyperglycemia; Z79.4 - termite treater (current) use of insulin Code(s): E11.65 - Type 2 diabetes mellitus with hyperglycemia Status: Chronic Assessment and Plan: * follow accu-cheks * glycemic control per hospitalists. Will continue to follow. Subjective Date/time seen: 06/27/23 16:11 Interval history: Follow-up for end-stage renal disease on hemodialysis. Tolerated dialysis treatment yesterday afternoon and tolerating dialysis treatment at this time (seen on HD at 4:01PM); potassium has normalized with medical management and dialytic intervention; breathing/respiratory status is improved/better at this time; on room air and in no apparent distress; CXR still with evidence of pulmonary edema. Exam Narrative: General: elderly but WD/WN female in NAD Heart: normal S1 and S2; no rub Lungs: clear anteriorly; decreased at bases; few scattered wheezes Abdomen: soft, nontender, nondistended, positive bowel sounds Extremities: no cyanosis or clubbing; no edema Skin: warm and dry Objective Data Vital Signs Vital Signs: Vital Signs Temp Pulse Resp BP Pulse Ox O2 Del Method O2 Flow Rate 06/27/23 16:00 62 152/48 H 06/27/23 15:43 97.9 F 100 16 150/71 H 96 06/27/23 15:56
--- NOTE | 2023-06-27 16:11 | PM.PNNEP ---
Progress Note: A&P Assessment and Plan (1) End stage renal disease: Code(s): N18.6 - End stage renal disease Status: Acute Assessment and Plan: HD tomorrow HD today for further electrolyte control and fluid removal continue T/T/S outpatient dialysis schedule follow electrolytes, volume status, and clearance (2) Acute respiratory failure: Code(s): J96.00 - Acute respiratory failure, unspecified whether with hypoxia or hypercapnia Status: Acute Assessment and Plan: significant clinical improvement multifactorial: COPD exacerbation fluid overload reactive airway disease BIPAP support as needed fluid removal with dialysis supplemental oxygen - wean as tolerated nebulizer treatments and steroids follow respiratory status (3) Acute hyperkalemia: Code(s): E87.5 - Hyperkalemia Status: Acute Assessment and Plan: s/p medical management dialysis today to maintain stability follow repeat levels (4) COPD (chronic obstructive pulmonary disease): Qualifiers: COPD type: unspecified COPD Qualified Code(s): J44.9 - Chronic obstructive pulmonary disease, unspecified Code(s): J44.9 - Chronic obstructive pulmonary disease, unspecified Status: Acute Assessment and Plan: continue nebulizer treatments, steroids, and oxygen BiPAP support as needed follow respiratory status (5) Fluid overload: Code(s): E87.70 - Fluid overload, unspecified Status: Acute Assessment and Plan: known to have large fluid gains in between dialysis treatments HD yesterday for electrolytes control and fluid removal HD today again (6) Hypertension: Code(s): I10 - Essential (primary) hypertension Status: Chronic Assessment and Plan: reasonable control at this time follow trend of hemodynamics (7) Type 2 diabetes mellitus with hyperglycemia: Qualifiers: Diabetes mellitus assisted insulin use: with terminal gauger supervisor use Qualified Code(s): E11.65 - Type 2 diabetes mellitus with hyperglycemia; Z79.4 - jail (current) use of insulin Code(s): E11.65 - Type 2 diabetes mellitus with hyperglycemia Status: Chronic Assessment and Plan: follow accu-cheks glycemic control per hospitalists. Will continue to follow. Subjective Date/time seen: 06/27/23 16:11 Interval history: Follow-up for end-stage renal disease on hemodialysis. Tolerated dialysis treatment yesterday afternoon and tolerating dialysis treatment at this time (seen on HD at 4:01PM); potassium has normalized with medical management and dialytic intervention; breathing/respiratory status is improved/better at this time; on room air and in no apparent distress; CXR still with evidence of pulmonary edema. Exam Narrative: General: elderly but WD/WN female in NAD Heart: normal S1 and S2; no rub Lungs: clear anteriorly; decreased at bases; few scattered wheezes Abdomen: soft, nontender, nondistended, positive bowel sounds Extremities: no cyanosis or clubbing; no edema Skin: warm and dry Objective Data Vital Signs Vital Signs: Vital Signs Temp Pulse Resp BP Pulse Ox O2 Del Method O2 Flow Rate 06/27/23 16:00 62 152/48 H 06/27/23 15:43 97.9 F 100 16 150/71 H 96 06/27/23 15:56 62 155/56 H 06/27/23 14:15 64 16 06/27/23 14:09 62 16 90 Room Air 06/27/23 14:05 62 16 06/27/23 10:00 65 06/27/23 10:00 65 12 130/41 L 91 06/27/23 08:00 98.2 F 59 L 11 L 155/51 H 100 Nasal Cannula 1 06/27/23 08:29 78 14 06/27/23 07:49 52 L 16 98 Nasal Cannula 1 06/27/23 07:40 60 17 06/27/23 06:00 60 20 150/60 H 96 06/27/23 06:00 60 06/27/23 04:00 61 18 93 Nasal Cannula 2 06/27/23 04:00 61 06/27/23 04:00 97.6 F 64 18 155/54 H 93 06/27/23 03:05 58 L 13 06/27/23 02:58 59
--- NOTE | 2023-06-27 19:10 | PC.NURSE ---
Pt returned from dialysis via bed.
[2023-06-27] MEDS: MONTELUKAST SODIUM 10 MG TABLET PO (19:35)
--- NOTE | 2023-06-27 19:57 | PC.NURSE ---
Patient returned from dialysis at shift change. (1900) Her glucose was checked and her dinner was given. She was dosed with dinner insulin (rapid acting) orders and given 1700 meds. Will recheck a little later than usual for bedtime insulin.
[2023-06-27 20:46] LABS: Glucose Point of Care 344 mg/dl (65-105)
[2023-06-27] MEDS: GABAPENTIN 300 MG CAPSULE 600 MG PO (20:50)
[2023-06-27] MEDS: rOPINIRole HCL 1 MG TABLET PO (20:51)
[2023-06-27] MEDS: APIXABAN 2.5 MG TABLET BY MOUTH (20:51)
--- NOTE | 2023-06-27 21:50 | ECG_ITS ---
Measurements Intervals [place] Rate: 68 P: -4 MD: 160 QRS: 0 QRSD: 103 T: 40 QT: 457 QTc: 486 Interpretive Statements SINUS RHYTHM PROLONGED QT INTERVAL ABNORMAL ECG COMPARED TO ECG 06/26/2023 08:05:33 PROLONGED QT INTERVAL NOW PRESENT Electronically Signed On 06-28-2023 12:21:39 DISTILLERY SUPERVISOR by Damian Marino M.D.
[2023-06-27 22:02] LABS: Glucose Point of Care 462 mg/dl (65-105)
[2023-06-27] MEDS: INSULIN GLARGINE (*BKC) 100 UNITS/ML 28 UNITS SUB-Q (22:10)
[2023-06-27] MEDS: INSULIN ASPART (*BKC) 100 UNITS/ML 8 UNITS SUB-Q (22:10)
[2023-06-28] VITALS (23 sets, daily range): BP systolic 80–164; BP diastolic 38–78; PULSE 54–70; RESP 14–19; TEMP 36.4–37; O2SAT 93–100
[2023-06-28] MEDS: ACETAMINOPHEN 500 MG TABLET 1000 MG PO (01:33)
[2023-06-28] MEDS: IPRATROPIUM 0.5 MG/ALBUTEROL SULFATE 2.5 MG AMPUL.NEB 3 ML INHALATION ×2 (02:59→08:26)
[2023-06-28 04:22] LABS: Anion Gap 16 mmol/L (8-16); Blood Urea Nitrogen 51 mg/dL (7-17); Calcium 9.2 mg/dL (8.4-10.2); Carbon Dioxide 23 mmol/L (22-30); Chloride 94 mmol/L (98-107); Estimated CRCL calculation 11 ml/min; Estimated Glomerular Filt Rate 9; Glucose 371 mg/dL (65-110); Sodium 133 mmol/L (137-145)
[2023-06-28] MEDS: LEVOTHYROXINE SODIUM 100 MCG, LEVOTHYROXINE SODIUM 75 MCG 175 MCG PO (06:05)
[2023-06-28 07:25] LABS: Glucose Point of Care 436 mg/dl (65-105)
--- NOTE | 2023-06-28 07:27 | PC.NURSE ---
Addendum entered by Lorraine Mancuso RN 06/28/23 08:47: 0749: RN looked incorrectly at MAR. Pt is not to receive 15 units of Lantus this AM. RN notified of this error. New order for 10 units SQ Lantus x1 now. Original Note: Notified Dr. Eden of patient's blood glucose of 436. Pt is to receive 8 units of NovoLog and 15 units of Lantus this AM. No new orders received for current blood sugar. RN will treat with standing orders and recheck blood sugar 2 hours after treatment.
[2023-06-28] MEDS: INSULIN ASPART (*BKC) 100 UNITS/ML SUB-Q (07:39)
[2023-06-28] MEDS: GABAPENTIN 300 MG CAPSULE 900 MG PO (07:40)
[2023-06-28] MEDS: PANTOPRAZOLE 40 MG TABLET PO (07:40)
[2023-06-28] MEDS: APIXABAN 2.5 MG TABLET BY MOUTH (07:40)
[2023-06-28] MEDS: rOPINIRole HCL 1 MG TABLET 2 MG PO (07:40)
[2023-06-28] MEDS: FUROSEMIDE INJ 100 MG/10 ML VIAL 80 MG IV PUSH (07:40)
[2023-06-28] MEDS: FLUTICASONE PROPIONATE 0.05% NA SPR 16 GM BTL (*BKC) 2 SPRAY NASAL (07:41)
[2023-06-28] MEDS: TOLNAFTATE 1% POWDER 45 GM BTL 1 APPLIC TOPICAL (07:41)
[2023-06-28] MEDS: CALCIUM ACETATE 667 MG TABLET PO (07:41)
[2023-06-28] MEDS: INSULIN GLARGINE (*BKC) 100 UNITS/ML 10 UNITS SUB-Q (07:45)
[2023-06-28] MEDS: FLUTICASONE/SALMETEROL 230-21 MCG INHALER 1 PUFF 2 PUFF INHALATION (08:25)
[2023-06-28] MEDS: UMECLIDINIUM BROMIDE 62.5 MCG ELLIPTA 1 PUFF INHALATION (08:25)
--- NOTE | 2023-06-28 09:27 | PM.DS ---
DS: Admitting Diagnosis Discharge Date 06/28/2023 Admitting Diagnosis SOB DS: Discharge Diagnosis Discharge Diagnosis (1) Chronic anticoagulation: Code(s): Z79.01 - FDC (current) use of anticoagulants Status: Acute (2) Volume overload: Code(s): E87.70 - Fluid overload, unspecified Status: Acute (3) Obstructive sleep apnea: Code(s): G47.33 - Obstructive sleep apnea (adult) (pediatric) Status: Acute (4) Paroxysmal atrial fibrillation: Code(s): I48.0 - Paroxysmal atrial fibrillation Status: Acute (5) Hypothyroidism: Code(s): E03.9 - Hypothyroidism, unspecified Status: Acute (6) Cerebrovascular accident: Code(s): I63.9 - Cerebral infarction, unspecified Status: Acute (7) Acute respiratory failure: Code(s): J96.00 - Acute respiratory failure, unspecified whether with hypoxia or hypercapnia Status: Acute (8) Acute hyperkalemia: Code(s): E87.5 - Hyperkalemia Status: Acute (9) COPD (chronic obstructive pulmonary disease): Qualifiers: COPD type: unspecified COPD Qualified Code(s): J44.9 - Chronic obstructive pulmonary disease, unspecified Code(s): J44.9 - Chronic obstructive pulmonary disease, unspecified Status: Acute (10) ESRD (end stage renal disease) on dialysis: Code(s): N18.6 - End stage renal disease; Z99.2 - Dependence on renal dialysis Status: Acute (11) Hypothyroidism (acquired): Code(s): E03.9 - Hypothyroidism, unspecified Status: Acute DS: Summary Hospital Course Hospital Course: 72-year-old female with multiple medical problems including multiple medical problems including end-stage renal disease on hemodialysis, chronic obstructive pulmonary disease, coronary artery disease, heart failure with preserved ejection fraction, stroke, deep venous thrombosis, hypothyroidism, insulin-dependent diabetes, and other comorbidities who presented to the emergency department for evaluation of shortness of breath. She gives a 3 day history of progressive dyspnea on lesser and lesser exertion which was much worse this morning. She has been using her inhalers and nebulizers at home without much benefit. She has not noticed any significant swelling and denies recent cold and flu symptoms. She was due for dialysis today but due to her work of breathing she came to the ER instead. She appeared in distress on arrival and was placed on BiPAP immediately with improvement. Preliminary workup in the ED showed a low normal WBC count, stable hemoglobin, potassium 6.8, sodium 134, CO2 31, BUN 64, creatinine 7.30, glucose 278. ABG showed a pH of 7.29, pCO2 57.6, PO2 254, HC03 27.? ?She was due for dialysis today but due to her work of breathing she came to the ER instead. She appeared in distress on arrival and was placed on BiPAP immediately with improvement. Pt is now on room air doing well plan to have dialysis emi and dc. Pt admitted for COPD exacerbation and CHF exacerbation. Pt was on bipap doing better today can be down graded to medical floor.? Pt doing well off oxygen ok to Dc after dialysis today. Pt diuresised well with IV lasix. Sugars were little high on day of DC because pt had been on IV solumedrol. Pt is off IV solumedrol for 2 days ok to dc without steroids. Time Spent with Patient Time attestation: Total time spent providing and/or coordinating discharge services:40 minutes on day of DC DS: Data Data Completed and Pending Labs on day of discharge: Labs from last 24 hours 06/28/23 06/28/23 06/27/23 07:21 03:50 21:53 Sodium 133 L Potassium 5.0 Chloride 94 L Carbon Dioxide 23 Anion Gap 16 BUN 51 H Creatinine 4.90 H Estim Creat Clear Calc 11 Estimated GFR 9 L Glucose 371 H POC Capillary Glucose 436 H 462 H Calcium 9.2 06/27/23 06/27/23 19:19 11:46 Sodium Potassium Chloride Carbon Dioxide Anion Gap BUN C
--- NOTE | 2023-06-28 10:54 | PC.NURSE ---
Pt to dialysis via bed.
--- NOTE | 2023-06-28 13:01 | P.PNNP_ITS ---
Progress Note: A&P Assessment and Plan (1) End stage renal disease: Code(s): N18.6 - End stage renal disease Status: Acute Assessment and Plan: * HD today * continue T/T/S outpatient dialysis schedule * follow electrolytes, volume status, and clearance (2) Acute respiratory failure: Code(s): J96.00 - Acute respiratory failure, unspecified whether with hypoxia or hypercapnia Status: Acute Assessment and Plan: * significant clinical improvement * multifactorial: * COPD exacerbation * fluid overload * reactive airway disease * BIPAP support as needed * fluid removal with dialysis * supplemental oxygen - wean as tolerated * nebulizer treatments and steroids * follow respiratory status (3) Acute hyperkalemia: Code(s): E87.5 - Hyperkalemia Status: Acute Assessment and Plan: * s/p medical management * dialysis today to maintain stability * follow repeat levels (4) COPD (chronic obstructive pulmonary disease): Qualifiers: COPD type: unspecified COPD Qualified Code(s): J44.9 - Chronic obstructive pulmonary disease, unspecified Code(s): J44.9 - Chronic obstructive pulmonary disease, unspecified Status: Acute Assessment and Plan: * continue nebulizer treatments, steroids, and oxygen * BiPAP support as needed * follow respiratory status (5) Fluid overload: Code(s): E87.70 - Fluid overload, unspecified Status: Acute Assessment and Plan: * known to have large fluid gains in between dialysis treatments * HD yesterday for electrolytes control and fluid removal * HD today again (6) Hypertension: Code(s): I10 - Essential (primary) hypertension Status: Chronic Assessment and Plan: * reasonable control at this time * follow trend of hemodynamics (7) Type 2 diabetes mellitus with hyperglycemia: Qualifiers: Diabetes mellitus terminal clerk insulin use: with terminal clerk use Qualified Code(s): E11.65 - Type 2 diabetes mellitus with hyperglycemia; Z79.4 - long term care phlebotomist (current) use of insulin Code(s): E11.65 - Type 2 diabetes mellitus with hyperglycemia Status: Chronic Assessment and Plan: * follow accu-cheks * glycemic control per hospitalists. Not opposed to discharge from renal perspective if otherwise medically stable. Will continue to follow. Subjective Date/time seen: 06/28/23 13:01 Interval history: Follow-up for end-stage renal disease on hemodialysis. Tolerating dialysis treatment at the time of my visit (seen on HD at 12:51PM); breathing/respiratory status appears stable if not back to baseline; potassium under reasonable control as well; no acute issues/events overnight or earlier this morning. Exam Narrative: General: elderly but WD/WN female in NAD Heart: normal S1 and S2; no rub Lungs: clear anteriorly; decreased at bases Abdomen: soft, nontender, nondistended, positive bowel sounds Extremities: no cyanosis or clubbing; no edema Skin: warm and intact Objective Data Vital Signs Vital Signs: Vital Signs Temp Pulse Resp BP Pulse Ox O2 Del Method 06/28/23 08:00 Room Air 06/28/23 08:26 62 18 06/28/23 07:59 97.6 F 58 L 18 156/78 H 100 06/28/23 03:06 70 18 06/28/23 00:20 60 14 98 CPAP
--- NOTE | 2023-06-28 13:01 | PM.PNNEP ---
Progress Note: A&P Assessment and Plan (1) End stage renal disease: Code(s): N18.6 - End stage renal disease Status: Acute Assessment and Plan: HD today continue T/T/S outpatient dialysis schedule follow electrolytes, volume status, and clearance (2) Acute respiratory failure: Code(s): J96.00 - Acute respiratory failure, unspecified whether with hypoxia or hypercapnia Status: Acute Assessment and Plan: significant clinical improvement multifactorial: COPD exacerbation fluid overload reactive airway disease BIPAP support as needed fluid removal with dialysis supplemental oxygen - wean as tolerated nebulizer treatments and steroids follow respiratory status (3) Acute hyperkalemia: Code(s): E87.5 - Hyperkalemia Status: Acute Assessment and Plan: s/p medical management dialysis today to maintain stability follow repeat levels (4) COPD (chronic obstructive pulmonary disease): Qualifiers: COPD type: unspecified COPD Qualified Code(s): J44.9 - Chronic obstructive pulmonary disease, unspecified Code(s): J44.9 - Chronic obstructive pulmonary disease, unspecified Status: Acute Assessment and Plan: continue nebulizer treatments, steroids, and oxygen BiPAP support as needed follow respiratory status (5) Fluid overload: Code(s): E87.70 - Fluid overload, unspecified Status: Acute Assessment and Plan: known to have large fluid gains in between dialysis treatments HD yesterday for electrolytes control and fluid removal HD today again (6) Hypertension: Code(s): I10 - Essential (primary) hypertension Status: Chronic Assessment and Plan: reasonable control at this time follow trend of hemodynamics (7) Type 2 diabetes mellitus with hyperglycemia: Qualifiers: 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 Not opposed to discharge from renal perspective if otherwise medically stable. Will continue to follow. Subjective Date/time seen: 06/28/23 13:01 Interval history: Follow-up for end-stage renal disease on hemodialysis. Tolerating dialysis treatment at the time of my visit (seen on HD at 12:51PM); breathing/respiratory status appears stable if not back to baseline; potassium under reasonable control as well; no acute issues/events overnight or earlier this morning. Exam Narrative: General: elderly but WD/WN female in NAD Heart: normal S1 and S2; no rub Lungs: clear anteriorly; decreased at bases Abdomen: soft, nontender, nondistended, positive bowel sounds Extremities: no cyanosis or clubbing; no edema Skin: warm and intact Objective Data Vital Signs Vital Signs: Vital Signs Temp Pulse Resp BP Pulse Ox O2 Del Method 06/28/23 08:00 Room Air 06/28/23 08:26 62 18 06/28/23 07:59 97.6 F 58 L 18 156/78 H 100 06/28/23 03:06 70 18 06/28/23 00:20 60 14 98 CPAP 06/28/23 03:02 67 19 06/28/23 00:00 66 14 150/50 H 93 06/27/23 23:50 64 21 H 99 BiPAP 06/27/23 21:07 98.0 F 63 13 145/52 H 93 06/27/23 20:58 64 16 06/27/23 20:47 61 15 06/27/23 20:47 61 15 92 Room Air 06/27/23 19:02 97.6 F 58 L 16 148/44 H 96 06/27/23 18:56 78 125/93 H 06/27/23 18:45 58 L 121/61 06/27/23 18:30 64 117/38 L 06/27/23 18:15 63 120/46 L 06/27/23 18:00 61 114/46 L 06/27/23 17:45 63 112/46 L 06/27/23 17:30 63 140/48 L 06/27/23 17:15 63 116/30 L 06/27/23 17:00 63 124/53 L 06/27/23 16:45 64 142/60 H
--- NOTE | 2023-06-28 14:47 | PC.NURSE ---
Pt returned from dialysis via bed. No issues noted
== END 2023-06-28 15:23 | disposition home or self-care (01) | DRG 291 ==
LOC: ANHED 11:01 → ANHICU 11:53
PROVIDERS: Emergency Medicine; Internal Medicine; Internal Medicine Nephrology; Physician Assistant; Admitting Provider Internal Medicine; Emergency Provider Family Medicine; PCP Family Medicine; Visit Provider Family Medicine
DX: I13.2 Hypertensive heart and chronic kidney disease with heart failure and with stage 5 chronic kidney disease, or end stage renal disease (principal); I50.33 Acute on chronic diastolic (congestive) heart failure; N18.6 End stage renal disease; J96.00 Acute respiratory failure, unspecified whether with hypoxia or hypercapnia; J44.1 Chronic obstructive pulmonary disease with (acute) exacerbation; E11.42 Type 2 diabetes mellitus with diabetic polyneuropathy; E11.22 Type 2 diabetes mellitus with diabetic chronic kidney disease; E11.65 Type 2 diabetes mellitus with hyperglycemia; E87.5 Hyperkalemia; E03.9 Hypothyroidism, unspecified; F41.1 Generalized anxiety disorder; G47.33 Obstructive sleep apnea (adult) (pediatric); I48.0 Paroxysmal atrial fibrillation; I25.10 Atherosclerotic heart disease of native coronary artery without angina pectoris; K22.70 Barrett's esophagus without dysplasia; K21.9 Gastro-esophageal reflux disease without esophagitis; Z86.718 Personal history of other venous thrombosis and embolism; Z86.73 Personal history of transient ischemic attack (TIA), and cerebral infarction without residual deficits; Z99.2 Dependence on renal dialysis; Z87.891 Personal history of nicotine dependence; Z79.4 Long term (current) use of insulin; Z79.01 Long term (current) use of anticoagulants
CPT/HCPCS: 36415; 36600; 71045; 71046; 80048; 80053; 82805; 82948; 83735; 83880; 84100; 84145; 84439; 84443; 84480; 85025; 86706; 87340; 87637; 87641; 93005; 94002; 94640; 96374; 96375; 99285; A9270; G0257; J0612; J1644; J1815; J1940; J2405; J2930; J7030

== ENCOUNTER 2023-09-22 10:40 | Emergency (ER) | payer MEDICARE, SELFPAY ==
[2023-09-22] VITALS (8 sets, daily range): BP systolic 145–153; BP diastolic 56–68; PULSE 64–73; RESP 14–23; TEMP 36.9; O2SAT 92–98
--- NOTE | ~2023-09-22 | XR_ITS ---
EXAMINATION: XR chest 1V portable DATE: 09/22/2023 11:14 INDICATION: Cough. TECHNIQUE: A single frontal view of the chest was obtained. COMPARISON: Chest single view 06/27/2023, chest CT 04/12/2022 FINDINGS: There is mild atelectasis in right lower lung zone. No pleural effusion or pneumothorax. Th e heart size is normal. There are prominent pericardial fat pads. IMPRESSION: 1. Mild atelectasis in right lower lung zone. Reviewed, dictated and finalized at location A.
--- NOTE | 2023-09-22 10:50 | ECG_ITS ---
SEE SCANNED COPY FOR CONFIRMED REPORT MTDD
--- NOTE | 2023-09-22 10:56 | ED.SOB ---
HPI - SOB/Dyspnea General Chief Complaint: Shortness of Breath/Dyspnea Stated Complaint: sob Time Seen by Provider: 09/22/23 10:44 History of Present Illness HPI Narrative: Patient with history of COPD, asthma, with chronic shortness of breath but over the last few days has been having more difficulty breathing, she has been using all of her medications including her nebulizer treatments and inhalers however has not felt better. Reports cough, no chest pain. Very minimal lower extremity swelling. Related Data Home Medications Medication Instructions Recorded Confirmed fluticasone propionate 50 2 spray intranasal DAILY 03/19/19 07/10/23 mcg/actuation nasal spray,suspension calcium acetate(phosphat bind) 667 667 mg PO TIDWM 02/27/23 07/10/23 mg capsule gabapentin 300 mg capsule 300 mg PO DAILY 06/26/23 07/10/23 gabapentin 600 mg tablet 600 mg PO DAILY 06/26/23 07/10/23 gabapentin 600 mg tablet 600 mg PO HS 06/26/23 07/10/23 ropinirole 1 mg tablet 1 mg PO HS 06/26/23 07/10/23 ropinirole 2 mg tablet 2 mg PO DAILY 06/26/23 07/10/23 Allergies Allergy/AdvReac Type Severity Reaction Status Date / Time nickel Allergy Intermediate hives and Verified 07/10/23 13:05 itchy rash Sulfa (Sulfonamide Allergy Intermediate Urticaria Verified 07/10/23 13:05 Antibiotics) and hives Calcium Channel Blocking AdvReac Intermediate STATES Verified 07/10/23 13:05 Agents-Dih CANNOT TAKE SINCE SHE HAS ASTHMA diphenhydramine AdvReac Intermediate restless Verified 07/10/23 13:05 legs nifedipine AdvReac Intermediate palpitation Verified 07/10/23 13:05 s Zgztijb-NVP-UhK Reductase AdvReac Intermediate muscle Verified 07/10/23 13:05 Inhibitor cramps [Deurfjl-Akc-Kpn Reductase Inhibitor] Review of Systems Review of Systems: All systems reviewed & are unremarkable except as noted in HPI and below PMFSH Past Medical History Medical History (Updated 09/22/23 @ 12:14 by Bethany Saleh MD) 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 Cerebrovascular accident Chronic anticoagulation Chronic diastolic (congestive) heart failure Chronic obstructive pulmonary disease Community acquired pneumonia due to Haemophilus influenzae Coronary artery disease involving [place] heart without angina pectoris Deep venous thrombosis Depression Generalized anxiety disorder GERD without esophagitis Hypothyroidism Insulin dependent type 2 diabetes mellitus Obstructive sleep apnea Paroxysmal atrial fibrillation Peripheral polyneuropathy Surgical History Surgical History History of cataract extraction History of cholecystectomy History of gastrostomy tube placement and removal History of tonsillectomy History of tracheostomy Family History Family History Father Hypertension Family history of coronary artery disease Sibling Hypertension Family history of coronary artery disease Mother Cerebrovascular accident Other Asthma Depression Family history of Alzheimer's disease Family history of arthritis Family history of cardiovascular disease Family history of lymphoma Family history of obesity Family history of seizure disorder Social History Social History Social History: Surrogate medical decision maker: Anjum (spouse) or Gwen (daughter) Kyra. Code status: Full code. Smoking packs per day: 2 Smoking cigarettes per day: 40.0 Years smoked: 30 Smoking pack-years: 60.00 Smoking status: Former smoker Tobacco type: cigarettes Second hand tobacco smoke exposure: No Smoking end date: 05/07/89 Alcohol intake: never Drinks per week: 1 Substance use: former Substance use type: marijuana Last use: 01/05/2023 Do You Feel Safe in your Home?: Yes Lack of Transportation: No Lack of Food: Never True Current Juma
[2023-09-22] MEDS: predniSONE 20 MG TABLET 40 MG PO (11:09)
[2023-09-22] MEDS: IPRATROPIUM BR 0.02% INH SOLN 0.5 MG/2.5 ML VIAL 1 MG INHALATION (11:12)
[2023-09-22] MEDS: ALBUTEROL SULFATE NEB 2.5 MG/3 ML INH 15 MG INHALATION (11:12)
[2023-09-22 11:15] LABS: Basophils Absolute Auto 0.1 K/mm3 (0.0-0.1); Eosinophils Absolute Auto 0.9 K/mm3 (0-0.3); Eosinophils Percent Auto 9.6 % (0-4.4); Hematocrit 33.3 % (37.0-47.0); Hemoglobin 10.6 g/dL (12.0-15.0); Immature Granulocyte Absolute 0.05 K/mm3 (0.00-0.031); Immature Granulocyte Percent A 0.5 % (0-0.5); Lymphocytes Absolute Auto 1.24 K/mm3 (0.9-3.2); Lymphocytes Percent Auto 13.2 % (18.3-44.2); Mean Corpuscular HGB Conc 31.8 g/dl (32-36); Mean Corpuscular Volume 100.6 fl (80-100); Mean Platelet Volume 10.5 fl (7.4-10.4); Monocytes Percent Auto 10.9 % (2.6-8.5); Neutrophils Absolute Auto 6.1 K/mm3 (1.3-6.7); Neutrophils Percent Auto 64.8 % (45.5-73.1); Platelet Count Result 229 k/mm3 (150-375); Red Blood Count 3.31 M/mm3 (4.2-5.4); Red Cell Distribution Width 13.5 % (11.5-14.5); White Blood Count 9.4 K/mm3 (4.5-10.0)
[2023-09-22 11:32] LABS: Anion Gap 9 mmol/L (4-12); Blood Urea Nitrogen 36 mg/dL (7-17); Calcium 8.9 mg/dL (8.4-10.2); Carbon Dioxide 34 mmol/L (22-30); Chloride 97 mmol/L (98-107); Estimated CRCL calculation 14 ml/min; Estimated Glomerular Filt Rate 11; Glucose 74 mg/dL (65-110); Sodium 140 mmol/L (137-145)
[2023-09-22] MEDS: AMOXICILLIN/CLAVULANATE K 875-125 MG TAB 1 TABLET PO (12:22)
[2023-09-22] MEDS: DOXYCYCLINE HYCLATE 100 MG TABLET PO (12:22)
== END 2023-09-22 12:36 | disposition home or self-care (01) ==
PROVIDERS: Emergency Provider Emergency Medicine; PCP Family Medicine
DX: J42 Unspecified chronic bronchitis (principal); Z87.891 Personal history of nicotine dependence; Z86.73 Personal history of transient ischemic attack (TIA), and cerebral infarction without residual deficits; I50.9 Heart failure, unspecified; I25.10 Atherosclerotic heart disease of native coronary artery without angina pectoris; F32.A Depression, unspecified; F41.9 Anxiety disorder, unspecified; K21.9 Gastro-esophageal reflux disease without esophagitis; E03.9 Hypothyroidism, unspecified; E11.9 Type 2 diabetes mellitus without complications; G47.30 Sleep apnea, unspecified; I48.91 Unspecified atrial fibrillation
CPT/HCPCS: 36415; 71045; 80048; 85025; 93005; 94640; 99284; A9270; J7512

== ENCOUNTER 2023-10-20 18:53 | Emergency (ER) | payer MEDICARE, SELFPAY ==
[2023-10-20] VITALS (7 sets, daily range): BP systolic 108–155; BP diastolic 40–54; PULSE 58–103; RESP 11–19; TEMP 36.8–36.9; O2SAT 92–95
--- NOTE | ~2023-10-20 | CT_ITS ---
CT brain wo con Ordering provider: Enoch Lugo MD History: 72 years Female with . Found down . Comparison: August 31, 2022 Technique: CT of the head without contrast. Radiation reduction technique utilized. DLP is 605.33mGy. FINDINGS: BRAIN PARENCHYMA AND CSF SPACES: Brain atrophy with deep white matter ischemic changes. Old infarcts in the basal ganglia. No midline shift, mass effect or hemorrhage. The brain parenchyma and CSF spac es are otherwise normal. VISUALIZED PARANASAL SINUSES: Well aerated. MASTOIDS: Well aerated. BONES: The bones appear intact. SOFT TISSUES: Visualized nasopharynx is normal. Superficial soft tissues are normal. IMPRESSION: No acute intracranial findings. Reviewed, dictated and finalized at location A.
--- NOTE | ~2023-10-20 | XR_ITS ---
XR chest 1V portable Ordering provider: Enoch Lugo MD History: 72 years Female with . new onset confusion/ wheezing . Comparison: September 22, 2023 FINDINGS: MEDIASTINUM: The cardiac silhouette is not enlarged. Prominent right hilum. LUNGS: No infiltrates, effusions or pneumothorax. Prominent markings in the lower lobes. Pneumonitis cannot be excluded. Underlying fibrotic changes are also noted. OTHER: No free air under the diaphragm. IMPRESSION: Prominent markings in the lower lobes. Pneumonitis cannot be excluded. Reviewed, dictated and finalized at location A.
[2023-10-20 19:47] LABS: Glucose Point of Care 153 mg/dl (65-105)
--- NOTE | 2023-10-20 20:08 | PC.NURSE ---
pt to ed via ems pt has hx of stroke, neuropathy, diabetes type 2, retinopathy, htn, dialysis, copd, asthma, hypothyroidism. pt states she went to the car after she got home from dialysis she went to the car. pt family member think she went to the garage about 1130. pt family member states she found patient in the car with the door open with one leg out confused with red skin, dry, with no loss of bowel or bladder about 1800. pt has a mo 2, ems checked a blood sugar and was 146.
--- NOTE | 2023-10-20 20:12 | ECG_ITS ---
Test Date: 2023-10-20 20:17:57 Measurements Intervals [place] Rate: 63 P: 19 NM: 178 QRS: -9 QRSD: 99 T: 41 QT: 455 QTc: 466 Interpretive Statements SINUS RHYTHM No previous ECG available for comparison Electronically Signed On 10-21-2023 13:01:36 CDT by Hema Roth M.D.
[2023-10-20 20:38] LABS: Basophils Absolute Auto 0.1 K/mm3 (0.0-0.1); Eosinophils Absolute Auto 0.7 K/mm3 (0-0.3); Eosinophils Percent Auto 7.4 % (0-4.4); Hemoglobin 10.9 g/dL (12.0-15.0); Immature Granulocyte Absolute 0.03 K/mm3 (0.00-0.031); Immature Granulocyte Percent A 0.3 % (0-0.5); Lymphocytes Absolute Auto 2.28 K/mm3 (0.9-3.2); Lymphocytes Percent Auto 25.6 % (18.3-44.2); Mean Corpuscular HGB Conc 32.1 g/dl (32-36); Mean Corpuscular Hemoglobin 32.1 pg (26-34); Mean Platelet Volume 10.4 fl (7.4-10.4); Monocytes Absolute Auto 1.1 K/mm3 (0.1-0.6); Monocytes Percent Auto 12.3 % (2.6-8.5); Neutrophils Absolute Auto 4.8 K/mm3 (1.3-6.7); Neutrophils Percent Auto 53.4 % (45.5-73.1); Platelet Count Result 247 k/mm3 (150-375); Red Cell Distribution Width 13.8 % (11.5-14.5); White Blood Count 8.9 K/mm3 (4.5-10.0)
[2023-10-20 20:49] LABS: Alanine Aminotransferase 17 U/L (6-35); Albumin Level 4.3 g/dL (3.5-5.1); Alkaline Phosphatase 86 U/L (38-126); Anion Gap 10 mmol/L (4-12); Aspartate Amino Transferase 24 U/L (14-36); Bilirubin,Total 0.6 mg/dL (0.2-1.3); Blood Urea Nitrogen 31 mg/dL (7-17); Calcium 9.4 mg/dL (8.4-10.2); Carbon Dioxide 32 mmol/L (22-30); Chloride 96 mmol/L (98-107); Creatine Kinase 112 U/L (30-135); Estimated Glomerular Filt Rate 10; Glucose 160 mg/dL (65-110); INR 1.1; Potassium 4.9 mmol/L (3.4-5.0); Prothrombin Time 14.9 Seconds (11.1-14.7); Sodium 138 mmol/L (137-145)
[2023-10-20 20:50] LABS: Partial Thromboplastin Time 31.7 Seconds (22.3-36.8)
--- NOTE | 2023-10-20 21:05 | ED.GENADULT ---
HPI - General Adult General Chief complaint: Altered Mental Status Stated complaint: CONFUSED HEAT EXPOSURE Time Seen by Provider: 10/20/23 20:37 History of Present Illness HPI narrative: This is a 72-year-old female with history of end-stage renal disease and COPD presenting after being found unresponsive car. The patient says that she has to pass a driving exam in the upcoming weeks. She was trying in the car to practice before test. She then says when she got the car she was very comfortable and fell asleep. Her daughter then found her in the garage with the carotids 2 were closed, the car door open and the car off. She was then confused but quickly to touch when she woke up. EMS was called and she was brought to the ED for evaluation. At this time the patient is denying headaches, fevers, chest pain difficulty breathing abdominal pain or urinary symptoms. Last dialysis was earlier today and she with a full session. Related Data Home Medications Medication Instructions Recorded Confirmed fluticasone propionate 50 2 spray intranasal DAILY 03/19/19 07/10/23 mcg/actuation nasal spray,suspension calcium acetate(phosphat bind) 667 667 mg PO TIDWM 02/27/23 07/10/23 mg capsule gabapentin 300 mg capsule 300 mg PO DAILY 06/26/23 07/10/23 gabapentin 600 mg tablet 600 mg PO DAILY 06/26/23 07/10/23 gabapentin 600 mg tablet 600 mg PO HS 06/26/23 07/10/23 Allergies Allergy/AdvReac Type Severity Reaction Status Date / Time nickel Allergy Intermediate hives and Verified 07/10/23 13:05 itchy rash Sulfa (Sulfonamide Allergy Intermediate Urticaria Verified 07/10/23 13:05 Antibiotics) and hives Calcium Channel Blocking AdvReac Intermediate STATES Verified 07/10/23 13:05 Agents-Dih CANNOT TAKE SINCE SHE HAS ASTHMA diphenhydramine AdvReac Intermediate restless Verified 07/10/23 13:05 legs nifedipine AdvReac Intermediate palpitation Verified 07/10/23 13:05 s Rljmidf-EAI-EdS Reductase AdvReac Intermediate muscle Verified 07/10/23 13:05 Inhibitor cramps [Grskuzy-Pap-Oim Reductase Inhibitor] [facility] Past Medical History Medical History (Updated 10/20/23 @ 23:32 by Enoch Lugo MD) 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 Cerebrovascular accident Chronic anticoagulation Chronic diastolic (congestive) heart failure Chronic obstructive pulmonary disease Community acquired pneumonia due to Haemophilus influenzae Coronary artery disease involving [place] heart without angina pectoris Deep venous thrombosis Depression Generalized anxiety disorder GERD without esophagitis Hypothyroidism Insulin dependent type 2 diabetes mellitus Obstructive sleep apnea Paroxysmal atrial fibrillation Peripheral polyneuropathy Surgical History Surgical History History of cataract extraction History of cholecystectomy History of gastrostomy tube placement and removal History of tonsillectomy History of tracheostomy Family History Family History Father Hypertension Family history of coronary artery disease Sibling Hypertension Family history of coronary artery disease Mother Cerebrovascular accident Other Asthma Depression Family history of Alzheimer's disease Family history of arthritis Family history of cardiovascular disease Family history of lymphoma Family history of obesity Family history of seizure disorder Social History Social History Social History: Surrogate medical decision maker: Anjum (spouse) or Gwen (daughter) Kyra. Code status: Full code. Smoking packs per day: 2 Smoking cigarettes per day: 40.0 Years smoked: 30 Smoking pack-years: 60.00 Smoking status: Former smoker Tobacco type: cigarettes Second hand tobacco smoke exposure: No Smoking end date: 05/07/89 Alcohol in
[2023-10-20 21:10] LABS: Ethanol < 10 mg/dL (<10)
[2023-10-20] MEDS: IPRATROPIUM 0.5 MG/ALBUTEROL SULFATE 2.5 MG AMPUL.NEB 3 ML 6 ML INHALATION (21:16)
[2023-10-20 22:00] LABS: Influenza A QL RT-PCR Negative (Negative); Influenza B QL RT-PCR Negative (Negative); RSV RNA, RT-PCR Negative (Negative); SARS-CoV-2 RNA PCR Negative (Negative)
[2023-10-20 22:08] LABS: Appearance Urine Clear (Clear); Bacteria Urine None Seen /hpf; Bilirubin Urine Negative (Negative); Blood Urine Trace (Negative); Color Urine Yellow (Yellow); Glucose Urine UA Negative (Negative); Ketones Urine Negative (Negative); Leukocyte Esterase Ur 2+ LEU/UL (Negative); Need Manual Microscopic Reviewed; Nitrate Urine Negative (Negative); Protein Urine 3+ mg/dL (Negative); RBC Urine 0-2 /hpf (0-2); Specific Grav Ur 1.015 (1.001-1.035); Squamous Epithelial Cell Urine None Seen /hpf (Few); Urobilinogen Urine 0.2 mg/dL (<2.0); WBC Urine >100 /hpf (0-3); pH Urine 7.5 (5.0-9.0)
[2023-10-20 22:09] LABS: Add Urine Microscopic? YES
[2023-10-20 22:13] LABS: Amphetamine Screen Urine Negative (Negative); Barbiturate Screen Urine Negative (Negative); Benzodiazepines Screen Urine Negative (Negative); Cannabinoid Screen Urine Negative (Negative); Cocaine Screen Urine Negative (Negative); Methadone Screen Urine Negative (Negative); Opiate Screen Urine Negative (Negative); Phencyclidine Screen Urine Negative (Negative)
== END 2023-10-21 00:11 | disposition home or self-care (01) ==
PROVIDERS: Emergency Provider Emergency Medicine; PCP Family Medicine
DX: T67.5XXA Heat exhaustion, unspecified, initial encounter (principal); N39.0 Urinary tract infection, site not specified; Z20.822 Contact with and (suspected) exposure to COVID-19; E11.22 Type 2 diabetes mellitus with diabetic chronic kidney disease; N18.6 End stage renal disease; I50.32 Chronic diastolic (congestive) heart failure; I48.0 Paroxysmal atrial fibrillation; J44.9 Chronic obstructive pulmonary disease, unspecified; I25.10 Atherosclerotic heart disease of native coronary artery without angina pectoris; E11.42 Type 2 diabetes mellitus with diabetic polyneuropathy; E03.9 Hypothyroidism, unspecified; G47.33 Obstructive sleep apnea (adult) (pediatric); K21.9 Gastro-esophageal reflux disease without esophagitis; F32.A Depression, unspecified; F41.1 Generalized anxiety disorder; Z86.718 Personal history of other venous thrombosis and embolism; Z87.01 Personal history of pneumonia (recurrent); Z86.73 Personal history of transient ischemic attack (TIA), and cerebral infarction without residual deficits; Z87.891 Personal history of nicotine dependence; Z98.49 Cataract extraction status, unspecified eye; Z90.49 Acquired absence of other specified parts of digestive tract; Z79.4 Long term (current) use of insulin; Z79.01 Long term (current) use of anticoagulants; Z79.899 Other long term (current) drug therapy; X30.XXXA Exposure to excessive natural heat, initial encounter
CPT/HCPCS: 36415; 70450; 71045; 80053; 80307; 81001; 82550; 82948; 83605; 83735; 85025; 85610; 85730; 87086; 87637; 93005; 94640; 96365; 99284; J0696

== ENCOUNTER 2023-10-23 09:50 | Emergency (ER) | payer MEDICARE, SELFPAY ==
--- NOTE | ~2023-10-23 | XR_ITS ---
EXAMINATION: XR knee LT min 4V DATE: 10/23/2023 10:38 INDICATION: Left knee pain. TECHNIQUE: 4 views of left knee were obtained. COMPARISON: Left knee radiographs 03/12/2022 FINDINGS: Bone alignment is normal. No fracture. There is moderate tricompartmental osteoarthritis. T here is a small knee joint effusion. IMPRESSION: 1. Moderate left knee osteoarthritis. 2. Small left knee joint effusion. Reviewed, dictated and finalized at location E.
--- NOTE | ~2023-10-23 | US_ITS ---
EXAMINATION: US venous doppler [facility] DATE: 10/23/2023 10:42 INDICATION: Left lower limb pain TECHNIQUE: Grayscale ultrasound images without and with compression and Doppler ultrasound images of the left lower extremity veins were obtained. COMPARISON: 04/11/2022 FINDINGS: The visualized portions of left common femoral vein, profunda (deep) femoral vein, femoral vein, popl iteal vein, peroneal veins, posterior tibial veins and greater saphenous vein outflow are patent. 6.3 x 3.1 x 2.3 cm Ba's cyst at the right popliteal fossa. IMPRESSION: 1. No deep venous thrombosis in the left lower limb. 2. Moderate-sized Ba's cyst at the left popliteal fossa. Reviewed, dictated and finalized at location A.
--- NOTE | 2023-10-23 09:56 | ED.EXTPRO ---
HPI - Extremity Problem General Chief complaint: Extremity Problem,Nontraumatic Stated complaint: left leg pain Time Seen by Provider: 10/23/23 09:52 Source: patient Mode of arrival: ambulatory Limitations: no limitations History of Present Illness HPI Narrative: Patient is a 72 y/o female, with PMH of ESRD on HD, who presents to the ED with c/o left posterior knee. Patient reports having pain throughout her left posterior knee, radiating down her leg down to her heel since last night. She denies any known injury, fall. She has been taking her 's tramadol at home without much improvement. She is able to ambulate, but has pain with this. Reports previous history of DVT, currently on Eliquis 2.5 mg b.i.d.. Denies chest pain or shortness of breath, denies swelling throughout lower extremity. Denies numbness. Denies redness, fevers. Related Data Home Medications Medication Instructions Recorded Confirmed fluticasone propionate 50 2 spray intranasal DAILY 03/19/19 07/10/23 mcg/actuation nasal spray,suspension calcium acetate(phosphat bind) 667 667 mg PO TIDWM 02/27/23 07/10/23 mg capsule gabapentin 300 mg capsule 300 mg PO DAILY 06/26/23 07/10/23 gabapentin 600 mg tablet 600 mg PO DAILY 06/26/23 07/10/23 gabapentin 600 mg tablet 600 mg PO HS 06/26/23 07/10/23 Allergies Allergy/AdvReac Type Severity Reaction Status Date / Time nickel Allergy Intermediate hives and Verified 10/23/23 10:04 itchy rash Sulfa (Sulfonamide Allergy Intermediate Urticaria Verified 10/23/23 10:04 Antibiotics) and hives Calcium Channel Blocking AdvReac Intermediate STATES Verified 10/23/23 10:04 Agents-Dih CANNOT TAKE SINCE SHE HAS ASTHMA diphenhydramine AdvReac Intermediate restless Verified 10/23/23 10:04 legs nifedipine AdvReac Intermediate palpitation Verified 10/23/23 10:04 s Loacwlm-YQG-IsO Reductase AdvReac Intermediate muscle Verified 10/23/23 10:04 Inhibitor cramps [Qegpawz-Urc-Qqg Reductase Inhibitor] Review of Systems Review of Systems: CONSTITUTIONAL: Denies fever, chills, or sweats. CARDIOVASCULAR: Denies chest pain. RESPIRATORY: Denies dyspnea. MUSCULOSKELETAL: See HPI. NEUROLOGIC: Denies headache, dizziness, numbness, or weakness. 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 Cerebrovascular accident Chronic anticoagulation Chronic diastolic (congestive) heart failure Chronic obstructive pulmonary disease Community acquired pneumonia due to Haemophilus influenzae Coronary artery disease involving [place] heart without angina pectoris Deep venous thrombosis Depression Generalized anxiety disorder GERD without esophagitis Hypothyroidism Insulin dependent type 2 diabetes mellitus Obstructive sleep apnea Paroxysmal atrial fibrillation Peripheral polyneuropathy Surgical History Surgical History History of cataract extraction History of cholecystectomy History of gastrostomy tube placement and removal History of tonsillectomy History of tracheostomy Family History Family History Father Hypertension Family history of coronary artery disease Sibling Hypertension Family history of coronary artery disease Mother Cerebrovascular accident Other Asthma Depression Family history of Alzheimer's disease Family history of arthritis Family history of cardiovascular disease Family history of lymphoma Family history of obesity Family history of seizure disorder Social History Social History Social History: Surrogate medical decision maker: Anjum (spouse) or Gwen (daughter) Kyra. Code st
[2023-10-23 09:57] VITALS: BP 144/54; PULSE 60; RESP 17; TEMP 36.5; O2SAT 97
[2023-10-23] MEDS: ACETAMINOPHEN 500 MG TABLET 1000 MG PO (10:08)
== END 2023-10-23 11:32 | disposition home or self-care (01) ==
PROVIDERS: Emergency Provider Physician Assistant; PCP Family Medicine
DX: M71.22 Synovial cyst of popliteal space [Baker], left knee (principal); E11.22 Type 2 diabetes mellitus with diabetic chronic kidney disease; N18.6 End stage renal disease; Z99.2 Dependence on renal dialysis; I50.32 Chronic diastolic (congestive) heart failure; E11.42 Type 2 diabetes mellitus with diabetic polyneuropathy; I25.10 Atherosclerotic heart disease of native coronary artery without angina pectoris; I48.0 Paroxysmal atrial fibrillation; J44.9 Chronic obstructive pulmonary disease, unspecified; E03.9 Hypothyroidism, unspecified; K21.9 Gastro-esophageal reflux disease without esophagitis; G47.33 Obstructive sleep apnea (adult) (pediatric); Z86.718 Personal history of other venous thrombosis and embolism; Z87.891 Personal history of nicotine dependence; Z98.49 Cataract extraction status, unspecified eye; Z90.49 Acquired absence of other specified parts of digestive tract; M17.12 Unilateral primary osteoarthritis, left knee; Z79.899 Other long term (current) drug therapy; Z79.01 Long term (current) use of anticoagulants; Z79.4 Long term (current) use of insulin
CPT/HCPCS: 73564; 93971; 99284; A9270

== ENCOUNTER 2023-12-25 07:29 | Inpatient (IN) | payer MEDICARE, SELFPAY ==
[2023-12-25] VITALS (51 sets, daily range): BP systolic 119–189; BP diastolic 46–120; PULSE 49–112; RESP 13–26; TEMP 35.6–37; O2SAT 88–100; BMI 39.9
--- NOTE | ~2023-12-25 | XR_ITS ---
EXAMINATION: XR barium swallow modified DATE: 12/27/2023 14:00 INDICATION: Choking episode. TECHNIQUE: The patient was given barium-containing material of multiple consistencies to swallow by t ez speech pathologist while I performed fluoroscopy. Fluoroscopy exposure time was 1.5 minutes. The n umber of fluoroscopy images saved to the PACS was 1. Dose-area product was 1.1 Gy-cm^2. FINDINGS: There is reduced laryngeal elevation, reduced tongue base retraction, vallecular residue, performed s inus residue, laryngeal penetration, and expected aspiration. IMPRESSION: 1. Laryngeal penetration and expected aspiration. 2. Please refer to the speech therapy report for recommendations. Reviewed, dictated and finalized at location A.
--- NOTE | ~2023-12-25 | XR_ITS ---
EXAMINATION: XR chest 1V DATE: 12/29/2023 13:34 INDICATION: Cough. TECHNIQUE: A single frontal view of the chest was obtained. COMPARISON: Chest 2 views 12/25/2023, chest CT 04/12/2022 FINDINGS: There is mild atelectasis in the lower lung zones. No pleural effusion or pneumothorax. The heart size is normal. There is a prominent left pericardial fat pad. Surgical clips in the right upp er quadrant are likely from cholecystectomy. IMPRESSION: 1. Mild atelectasis in the lower lung zones. Reviewed, dictated and finalized at location A.
--- NOTE | ~2023-12-25 | CT_ITS ---
EXAMINATION: CT brain wo con DATE: 12/29/2023 13:37 INDICATION: Altered mental status. TECHNIQUE: Computed tomography (CT) of the head was performed without intravenous contrast. The mA wa s adjusted according to patient size. Iterative reconstruction technique was employed. The dose-lengt h product was 1135.00 mGy-cm. COMPARISON: Head CT 12/27/2023, brain MRI 12/26/2023 FINDINGS: There are acute infarcts involving the left frontoparietal region and left insula. There ar e scattered areas of low attenuation in the cerebral white matter and bilateral basal ganglia. There are old infarcts involving the bilateral cerebellum, johann, and left frontal lobe. There is no intracr anial hemorrhage or abnormal mass lesion. The ventricles are normal in size. There is mild mucosal th ickening in the ethmoid sinuses. There is a right mastoid effusion. There are likely changes of ocula r lens replacement surgeries. IMPRESSION: 1. Stable acute infarcts in the left frontoparietal region and left insula. 2. Old infarcts in the cerebellum, johann, and left frontal lobe. 3. Moderate nonspecific cerebral white matter disease, which likely represents chronic small vessel i schemic disease. Reviewed, dictated and finalized at location A. IMPRESSION: 1. Stable acute infarcts in the left frontoparietal region and left insula. 2. Old infarcts in the cerebellum, johann, and left frontal lobe. 3. Moderate nonspecific cerebral white matter disease, which likely represents chronic small vessel ischemic disease.
--- NOTE | ~2023-12-25 | CT_ITS ---
EXAMINATION: CT brain wo con DATE: 01/03/2024 22:31 INDICATION: Anisocoria. TECHNIQUE: Computed tomography (CT) of the head was performed without intravenous contrast. The mA wa s adjusted according to patient size. Iterative reconstruction technique was employed. The dose-lengt h product was 681.00 mGy-cm. COMPARISON: Head CT 12/29/2023, brain MRI 12/26/23 FINDINGS: There is a large distribution infarct involving the left frontal, temporal, parietal, occip ital lobes, left insula, and left basal ganglia. There are old infarcts in the johann and bilateral cer ebellum. There are scattered areas of low attenuation in the cerebral white matter and basal ganglia. There is no intracranial hemorrhage or abnormal mass lesion. The ventricles are normal in size. Ther e are likely changes of ocular lens replacement surgeries. There is mild mucosal thickening in the pa ranasal sinuses. There are small bilateral mastoid effusions. IMPRESSION: 1. Large infarct in the expected distribution of left middle cerebral artery with worsening from 12/28, likely acute or subacute. 2. Old infarcts in the johann and cerebellum. 3. Moderate nonspecific cerebral white matter disease and disease of the bilateral basal ganglia, whi ch likely represents chronic small vessel ischemic disease. Reviewed, dictated and finalized at location A. IMPRESSION: 1. Large infarct in the expected distribution of left middle cerebral artery wi th worsening from 12/29/2023, likely acute or subacute. 2. Old infarcts in the johann and cerebellum. 3. Moderate nonspecific cerebral white matter disease and disease of the bilate ral basal ganglia, which likely represents chronic small vessel ischemic diseas e.
--- NOTE | ~2023-12-25 | CT_ITS ---
EXAMINATION: CTA brain carotid DATE: 12/27/2023 14:46 INDICATION: Acute stroke. TECHNIQUE: Computed tomographic angiography (CTA) of the head was performed without and with 100 mL O mnipaque-350 intravenous contrast. CTA of the neck was performed with intravenous contrast. Automated exposure control and iterative reconstruction technique were employed. The dose-length product was 1 710.62 mGy-cm. Maximum intensity projection and volume rendered 3D-reconstructions were created by mahamed moses technologist on a separate workstation. COMPARISON: Head CT 12/26/2023, brain MRI 12/26/2023 FINDINGS: HEAD CTA: There are old infarcts in the cerebellum bilaterally. There are old infarcts in the johann. T here are acute infarcts in the left insula and left frontal parietal region. There are scattered area s of low attenuation in the cerebral white matter and bilateral basal ganglia. There is an old infarc t in the left frontal lobe deep white matter. There is no intracranial hemorrhage or abnormal mass le armani. The ventricles are normal in size. There is mild mucosal thickening in the paranasal sinuses. T here are likely changes of ocular lens replacement surgeries. There is a small right mastoid effusion . There is no significant stenosis of basilar artery. Right P1 posterior cerebral artery is small. Th ere is mild stenosis of right posterior cerebral artery. There is no significant stenosis of the intr acranial internal carotid arteries or anterior cerebral arteries. Anterior communicating artery is no rmal. There is no aneurysm. There is total occlusion of left M2 middle cerebral artery. NECK CTA: There are surgical changes of the thyroid. There is moderate stenosis of the cervical left vertebral artery. The distal vertebral arteries are obscured by motion artifact. There is plaque in t he proximal internal carotid arteries. The distal cervical internal carotid, carotid arteries are obs cured by motion artifact. There is 0% stenosis of the proximal right internal carotid artery relative to normal distal artery lumen diameter (NASCET criteria). There is 0% stenosis of the proximal left internal carotid artery relative to normal distal artery lumen diameter. There is severe cervical spo ndylosis. IMPRESSION: 1. Acute infarcts in the left frontoparietal region and left insula. 2. Total occlusion of left M2 middle cerebral artery. 3. Old infarcts in the cerebellum, johann, and left frontal lobe. 4. Moderate nonspecific cerebral white matter disease and disease of the bilateral basal ganglia, whi ch likely represents chronic small vessel ischemic disease. 5. 0% stenosis of the proximal internal carotid arteries relative to normal distal artery lumen diame ters (NASCET criteria). 6. Moderate stenosis of left vertebral artery. Reviewed, dictated and finalized at location A. IMPRESSION: 1. Acute infarcts in the left frontoparietal region and left insula. 2. Total occlusion of left M2 middle cerebral artery. 3. Old infarcts in the cerebellum, johann, and left frontal lobe. 4. Moderate nonspecific cerebral white matter disease and disease of the bilate ral basal ganglia, which likely represents chronic small vessel ischemic diseas e. 5. 0% stenosis of the proximal internal carotid arteries relative to normal dis rashi artery lumen diameters (NASCET criteria). 6. Moderate stenosis of left vertebral artery.
--- NOTE | ~2023-12-25 | XR_ITS ---
EXAMINATION: XR abdomen gastric tube insert DATE: 12/29/2023 22:35 INDICATION: Nasogastric tube placement. Nausea and vomiting. TECHNIQUE: An upright view of the abdomen was obtained on 2 radiographs. COMPARISON: None. FINDINGS: The lower abdomen and right lateral aspect of the abdomen are excluded. The nasogastric tub e tip is in the stomach. Surgical clips in the right upper quadrant are likely from cholecystectomy. IMPRESSION: 1. Nasogastric tube tip in the stomach. Reviewed, dictated and finalized at location A.
--- NOTE | ~2023-12-25 | CT_ITS ---
CT ANGIOGRAM NECK AND HEAD History: CVA. Technique: Axial noncontrast imaging of the brain was performed. Serial spiral axial images through t he head and neck were then obtained during arterial phase IV injection of 100 cc of Omnipaque 350. 3- D postprocessing and MIP images were then reconstructed on the remote workstation. Dose reduction martín hnique was used on this scan by utilizing automated exposure control and iterative reconstruction martín hnique. The dose-length product (DLP) was 2000.12 mGy-cm. COMPARISON: 01/03/2024 CTA neck findings: Right vertebral is patent. There is extensive atherosclerotic calcification at th e distal left vertebral artery with probable occlusion of the very distal left vertebral artery. Bila teral common carotid, internal carotid, and external carotid arteries are patent. No large vessel occ lusion or stenosis of the carotid vasculature is seen. The proximal right internal carotid artery dem onstrates 0% stenosis relative to the normal distal artery lumen diameter. The proximal left internal carotid artery demonstrates 0% stenosis relative to the normal distal artery lumen diameter. CTA head findings: Distal right vertebral artery, basilar artery, and posterior cerebral arteries are patent. There is extensive atherosclerotic ossification of the cavernous portions of the distal inte rnal carotid arteries with probable mild stenoses. There is abrupt high-grade stenosis at the left M2 middle cerebral artery at the site of prior occlusion, now with a small amount of contrast passing t hrough this region. No new large vessel occlusion. There is persistent decreased opacification of the left MCA territory arterial vasculature as compared to the right side. 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 Axial noncontrast images again demonstrates extensive hypodensity in the left MCA distribution. No in tracranial hemorrhage seen. Ventricles and subarachnoid spaces are unchanged. No mass effect or midli ne shift. Osseous structures are intact. Impression: Small amount of contrast now passes through the site of prior occlusion of the left M2 middle cerebra l artery. There is persistent decreased opacification of left MCA territory arterial vasculature over all as compared to the right side. Probable occlusion of the distal left vertebral artery, likely chronic. Extensive hypodensity in the left MCA distribution is compatible with evolving acute infarct. No intr acranial hemorrhage evident. 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 Reviewed, dictated and finalized at location M. Impression: Small amount of contrast now passes through the site of prior occlusion of the left M2 middle cerebral artery. There is persistent decreased opacification of left MCA territory arterial vasculature overall as compared to the right side. Probable occlusion of the distal left vertebral artery, likely chronic. Extensive hypodensity in the left MCA distribution is compatible with evolving acute infarct. No intracranial hemorrhage evident. 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
--- NOTE | ~2023-12-25 | XR_ITS ---
XR chest 2V 12/25/2023 08:22 Indication: Shortness of breath. Low oxygen saturations. Procedure: 2 view chest Comparison: Comparison to multiple prior studies sequentially, with oldest reviewed study dated 06/26. Findings: Cardiomegaly with interstitial edema. No significant effusion. No pneumothorax. No acute os seous abnormality. Impression: 1: Cardiomegaly with mild interstitial edema. Reviewed, dictated and finalized at location B. Impression: 1: Cardiomegaly with mild interstitial edema.
--- NOTE | ~2023-12-25 | XR_ITS ---
EXAMINATION: XR chest 1V portable DATE: 12/30/2023 12:18 INDICATION: Shortness of breath. TECHNIQUE: A single frontal view of the chest was obtained on 2 radiographs. COMPARISON: Chest view 12/29/2023 FINDINGS: There is mild atelectasis at right lung base. No pleural effusion or pneumothorax. The hear t is normal. The nasogastric tube tip is beyond the inferior margin of the radiograph, but at least t o the stomach. IMPRESSION: 1. Mild atelectasis at right lung base. Reviewed, dictated and finalized at location A.
--- NOTE | ~2023-12-25 | MR_ITS ---
MR brain/brain stem wo con Ordering provider: Pamela Burch MD History: 72 years Female with . aphasia . Comparison: CT head performed same day. Technique: MRI brain was performed without contrast. FINDINGS: BONES: Normal. CRANIOCERVICAL JUNCTION: normal. PITUITARY: Normal. MAJOR INTRACRANIAL VESSELS: Normal flow void. OPTIC NERVES AND CRANIAL NERVES VII AND VIII COMPLEXES: Grossly normal. BRAIN PARENCHYMA AND CSF SPACES: Mild nonspecific T2 white matter hyperintensities are seen in a gilmer ateral periventricular and deep white matter distribution which are likely related to chronic ischemi c small vessel disease. Mild diffuse cortical atrophy. Prominent varicose spaces in the basal gangli a. Old infarct in the left cerebellar hemisphere. The brainstem and cerebellum are normal. No acute o r chronic intracranial hemorrhage. No extra axial fluid collections. Diffusion restriction is seen in the left hippocampal area and in the left posterior frontal area suggestive of acute infarct. No mid line shift or mass effect. PARANASAL SINUSES: Normal. MASTOIDS: Effusion in the right mastoid is seen. SUPERFICIAL/SURROUNDING SOFT TISSUES: Normal. IMPRESSION: 1. Acute infarct in the left hippocampus and left posterior frontal lobe. No definite hemorrhagic ch anges seen. 2. Mild brain atrophy with deep white matter ischemic changes. Physician: Pamela uBrch MD Was notified with the result of the patient at the time of dictation 10:08 AM on December 26, 2023 Reviewed, dictated and finalized at location A. IMPRESSION: 1. Acute infarct in the left hippocampus and left posterior frontal lobe. No d efinite hemorrhagic changes seen. 2. Mild brain atrophy with deep white matter ischemic changes. Physician: Pamela Burch MD Was notified with the result of the patient at the time of dictation 10:08 AM o n December 26, 2023
--- NOTE | ~2023-12-25 | XR_ITS ---
EXAMINATION: XR chest 1V portable DATE: 01/06/2024 14:18 INDICATION: Aspiration pneumonia TECHNIQUE: frontal view of the chest was obtained. COMPARISON: Chest radiograph dated 12/30/2023 and 04/12/2022 FINDINGS: Opacities at the bilateral lower lung zones which could represent atelectasis, aspiration or pneumoni a. No pulmonary edema, pleural effusion or pneumothorax. Heart size is normal with prominent mitral a nnular calcification. IMPRESSION: 1. Mild bibasilar opacities which could represent atelectasis, aspiration or pneumonia. Reviewed, dictated and finalized at location A. IMPRESSION: 1. Mild bibasilar opacities which could represent atelectasis, aspiration or pn eumonia.
--- NOTE | ~2023-12-25 | XR_ITS ---
EXAMINATION: XR abdomen gastric tube insert DATE: 01/01/2024 14:35 INDICATION: Nasogastric tube placement TECHNIQUE: A supine view of the abdomen and lower chest was obtained for evaluation of feeding tube placement. COMPARISON: None. FINDINGS: Nasogastric tube extends into the stomach with proximal side-port in the distal body and the distal t ip collimated beyond the inferior margin of the [id number]. Cholecystectomy clips in right upper q uadrant. Small amount of oral contrast material within the stomach. Airspace opacities in the left lo wer lung zone which could represent atelectasis or pneumonia. IMPRESSION: 1. Nasogastric tube extends into the stomach with the distal tip collimated beyond the inferior latasha n of the [id number]. Would consider withdrawal by 8 cm. 2. Airspace opacity left lower lung zone which could represent atelectasis or pneumonia. Reviewed, dictated and finalized at location A. IMPRESSION: 1. Nasogastric tube extends into the stomach with the distal tip collimated bey ond the inferior margin of the [id number]. Would consider withdrawal by 8 cm . 2. Airspace opacity left lower lung zone which could represent atelectasis or p neumonia.
--- NOTE | ~2023-12-25 | US_ITS ---
EXAMINATION: US carotid duplex BI DATE: 12/26/2023 09:13 INDICATION: Aphasia. Infarcts in the cerebellum and basal ganglia. Stroke. TECHNIQUE: Grayscale, color Doppler, and pulsed Doppler images of the cervical carotid arteries were obtained. The degree of vessel stenosis is placed in one of the following categories: normal, <50%, 5 0-69%, >=70% but less than near-occlusion, near-occlusion, or total occlusion. Note that percent sten osis relative to normal distal artery lumen diameter is indirectly measured from velocity measurement s as described by Jake, et al. Radiology 2003; [id number]:[id number]. COMPARISON: None. FINDINGS: RIGHT: The right common carotid artery (CCA) peak systolic velocity (PSV) is 58 cm/s. The right internal car otid artery (ICA) PSV is 96 cm/s. The right ICA end-diastolic velocity (EDV) is 16 cm/s. The right IC A/CCA PSV ratio is 1.7. Grayscale and color Doppler images yield an estimate of <50% diameter reducti on from plaque in the ICA. There is antegrade flow in the right vertebral artery. LEFT: The left CCA PSV is 65 cm/s. The left ICA PSV is 81 cm/s. The left ICA EDV is 14 cm/s. The left ICA/C CA PSV ratio is 1.2. Grayscale and color Doppler images yield an estimate of <50% diameter reduction from plaque in the ICA. There is antegrade flow in the left vertebral artery. IMPRESSION: 1. <50% stenosis in the right internal carotid artery. 2. <50% stenosis in the left internal carotid artery. Reviewed, dictated and finalized at location A.
--- NOTE | ~2023-12-25 | CT_ITS ---
EXAMINATION: CT brain wo con DATE: 12/26/2023 01:18 INDICATION: Aphasia. TECHNIQUE: Computed tomography (CT) of the head was performed without intravenous contrast. The mA wa s adjusted according to patient size. Iterative reconstruction technique was employed. The dose-lengt h product was 605.33 mGy-cm. COMPARISON: Head CT 10/20/2023 FINDINGS: There is an old infarct in the left cerebellum. There are scattered areas of low attenuatio n in the cerebral white matter, which is within normal limits for the patient's age. There are old in farcts in the bilateral basal ganglia. There is no intracranial hemorrhage, acute infarction, or abno rmal intracranial mass lesion. The ventricles are normal in size. There are likely changes of ocular lens replacement surgeries. There is mild mucosal thickening in the ethmoid sinuses. The mastoid air cells are normal. IMPRESSION: 1. Old infarcts in the left cerebellum and bilateral basal ganglia. Reviewed, dictated and finalized at location A.
--- NOTE | ~2023-12-25 | XR_ITS ---
EXAMINATION: XR abdomen gastric tube insert DATE: 12/31/2023 18:27 INDICATION: Nasogastric tube placement. TECHNIQUE: A supine view of the abdomen on 2 radiographs was obtained. COMPARISON: Abdomen radiograph 12/29/2023 FINDINGS: There are no dilated loops of bowel. The nasogastric tube tip is in the distal stomach. Holly gical clips in the right upper quadrant are likely from cholecystectomy. IMPRESSION: 1. Nasogastric tube tip in the distal stomach. Reviewed, dictated and finalized at location A.
--- NOTE | 2023-12-25 07:38 | ECG_ITS ---
Test Date: 2023-12-25 07:44:20 Measurements Intervals [place] Rate: 61 P: 6 MN: 187 QRS: -2 QRSD: 121 T: 30 QT: 453 QTc: 458 Interpretive Statements SINUS RHYTHM MODERATE INTRAVENTRICULAR CONDUCTION DELAY [110+ ms QRS DURATION] Compared to ECG 10/20/2023 20:17:57 NO SIGNIFICANT CHANGES Electronically Signed On 12-25-2023 10:24:43 CDT by Zuleima Ye M.D.
[2023-12-25 07:59] LABS: Basophils Absolute Auto 0.1 K/mm3 (0.0-0.1); Basophils Percent Auto 0.9 % (0.2-1.2); Eosinophils Absolute Auto 0.5 K/mm3 (0-0.3); Eosinophils Percent Auto 5.1 % (0-4.4); Hematocrit 31.6 % (37.0-47.0); Hemoglobin 10.4 g/dL (12.0-15.0); Immature Granulocyte Absolute 0.06 K/mm3 (0.00-0.031); Immature Granulocyte Percent A 0.6 % (0-0.5); Lymphocytes Absolute Auto 1.13 K/mm3 (0.9-3.2); Lymphocytes Percent Auto 11.1 % (18.3-44.2); Mean Corpuscular HGB Conc 32.9 g/dl (32-36); Mean Corpuscular Hemoglobin 33.3 pg (26-34); Mean Corpuscular Volume 101.3 fl (80-100); Mean Platelet Volume 11.1 fl (7.4-10.4); Monocytes Percent Auto 9.7 % (2.6-8.5); Neutrophils Absolute Auto 7.4 K/mm3 (1.3-6.7); Neutrophils Percent Auto 72.6 % (45.5-73.1); Platelet Count Result 219 k/mm3 (150-375); Red Blood Count 3.12 M/mm3 (4.2-5.4); Red Cell Distribution Width 13.7 % (11.5-14.5); White Blood Count 10.2 K/mm3 (4.5-10.0)
[2023-12-25 08:29] LABS: Alanine Aminotransferase 15 U/L (6-35); Albumin Level 4.1 g/dL (3.5-5.1); Alkaline Phosphatase 81 U/L (38-126); Anion Gap 16 mmol/L (4-12); Aspartate Amino Transferase 18 U/L (14-36); Bilirubin,Total 0.5 mg/dL (0.2-1.3); Blood Urea Nitrogen 96 mg/dL (7-17); Calcium 8.7 mg/dL (8.4-10.2); Carbon Dioxide 24 mmol/L (22-30); Chloride 92 mmol/L (98-107); Estimated CRCL calculation 6 ml/min; Estimated Glomerular Filt Rate 4; Glucose 432 mg/dL (65-110); Sodium 132 mmol/L (137-145)
[2023-12-25 08:51] LABS: Add Urine Microscopic? YES; Appearance Urine Clear (Clear); Bacteria Urine None Seen /hpf; Bilirubin Urine Negative (Negative); Blood Urine 1+ (Negative); Color Urine Yellow (Yellow); Glucose Urine UA 3+ mg/dL (Negative); Ketones Urine Negative (Negative); Leukocyte Esterase Ur 2+ LEU/UL (Negative); Nitrate Urine Negative (Negative); Non Pathogenic Casts 0-2; Protein Urine 2+ mg/dL (Negative); RBC Urine 0-2 /hpf (0-2); Specific Grav Ur 1.015 (1.001-1.035); Squamous Epithelial Cell Urine None Seen /hpf (Few); Urobilinogen Urine 0.2 mg/dL (<2.0); WBC Urine >100 /hpf (0-3)
[2023-12-25] MEDS: ALBUTEROL SULFATE NEB 2.5 MG/3 ML INH 10 MG INHALATION (08:55)
--- NOTE | 2023-12-25 09:40 | ED.WEAKNESS ---
HPI - Weakness General Chief complaint: Weakness Stated complaint: weakness Time Seen by Provider: 12/25/23 08:29 Source: patient and family Mode of arrival: EMS History of Present Illness HPI Narrative: Patient presents via EMS with complaint of generalized weakness. She has end-stage renal disease and is supposed undergo dialysis on Tuesdays, , Saturdays. She notes that she had a full run of dialysis but did not go on Sunday due to transportation issues. Her nephrologists are Dr. Rios and Dr. Dumont. She also has been wheezing with exertion history asthma/COPD. She notes a little chest pain and intermittent shortness of breath. There is also concern that her blood glucose is elevated. She is prescribed furosemide but her daughter states she has not been taking this. She is also prescribed multiple inhalers and nebulizer as for underlying respiratory conditions. She is on insulin regiment of both long-acting and short-acting insulin drip was believes she missed taking her NovoLog. Related Data Home Medications Medication Instructions Recorded Confirmed fluticasone propionate 50 2 spray intranasal DAILY 03/19/19 12/25/23 mcg/actuation nasal spray,suspension calcium acetate(phosphat bind) 667 667 mg PO TIDWM 02/27/23 12/25/23 mg capsule insulin aspart U-100 100 unit/mL See Rx Instructions .Route .COMPLEX 12/25/23 12/25/23 (3 mL) subcutaneous pen (Novolog FlexPen U-100 Insulin aspart) insulin glargine 100 unit/mL (3 28 unit subcut HS 12/25/23 12/25/23 mL) subcutaneous pen (Lantus Solostar U-100 Insulin) Allergies Allergy/AdvReac Type Severity Reaction Status Date / Time nickel Allergy Intermediate hives and Verified 12/25/23 07:40 itchy rash Sulfa (Sulfonamide Allergy Intermediate Urticaria Verified 12/25/23 07:40 Antibiotics) and hives Calcium Channel Blocking AdvReac Intermediate STATES Verified 12/25/23 07:40 Agents-Dih CANNOT TAKE SINCE SHE HAS ASTHMA diphenhydramine AdvReac Intermediate restless Verified 12/25/23 07:40 legs nifedipine AdvReac Intermediate palpitation Verified 12/25/23 07:40 s Qyntyaz-TDW-BgF Reductase AdvReac Intermediate muscle Verified 12/25/23 07:40 Inhibitor cramps [Vopbhnl-Gge-Qvo Reductase Inhibitor] PMFSH Past Medical History Medical History Asthma-COPD overlap syndrome 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 Cerebrovascular accident Chronic anticoagulation Chronic diastolic (congestive) heart failure Chronic obstructive pulmonary disease Community acquired pneumonia due to Haemophilus influenzae Coronary artery disease involving [place] heart without angina pectoris Deep venous thrombosis Depression ESRD on hemodialysis Generalized anxiety disorder GERD without esophagitis Hypothyroidism Insulin dependent type 2 diabetes mellitus Obstructive sleep apnea Paroxysmal atrial fibrillation Peripheral polyneuropathy Surgical History Surgical History History of cataract extraction History of cholecystectomy History of gastrostomy tube placement and removal History of tonsillectomy History of tracheostomy Family History Family History Father Hypertension Family history of coronary artery disease Sibling Hypertension Family history of coronary artery disease Mother Cerebrovascular accident Other Asthma Depression Family history of Alzheimer's disease Family history of arthritis Family history of cardiovascular disease Family history of lymphoma Family history of obesity Family history of seizure disorder Social History Social History Social History: Surrogate medical decision maker: Anjum (spouse) or Gwen (daughter) Kyra. Code statu
[2023-12-25] MEDS: CALCIUM GLUCONATE 1,000 MG/10 ML VIAL 1000 MG IV PUSH (09:47)
[2023-12-25] MEDS: FUROSEMIDE INJ 100 MG/10 ML VIAL 80 MG IV PUSH (10:00)
[2023-12-25] MEDS: SODIUM POLYSTYRENE SULFONONATE 15 GM/60 ML BTL 30 GM PO (10:00)
[2023-12-25] MEDS: INSULIN HUMAN REGULAR (*BKC) 100 UNITS/ML IV PUSH (10:01)
[2023-12-25] MEDS: predniSONE 20 MG TABLET 40 MG PO (10:03)
[2023-12-25 10:08] LABS: Beta-Hydroxybutyrate/Acetoacetate 0.24 mmol/L (0.02-0.27)
[2023-12-25] MEDS: IPRATROPIUM BR 0.02% INH SOLN 0.5 MG/2.5 ML VIAL INHALATION (10:32)
[2023-12-25 10:39] LABS: Alveolar/Arterial O2 Gradient 58.2 mmHg; Fractional Inspired Oxygen 28 %; HCO3 ABG 23.6 mEq/l (22.0-26.0); Oxygen Content ABG 13.9 %vol (16.0-22.0); Oxygen Saturation ABG 96.4 % (95.0-100.0); Oxyhemoglobin 94.5 % THb (90.0-100.0); PCO2 ABG 44.1 mmHg (35.0-45.0); PO2 ABG 89.4 mmHg (80.0-100.0); PO2 FiO2 Ratio Arterial Blood 3.19 %; Total Hemoglobin 10.4 g/dL (12.0-18.0); pH ABG 7.347 (7.350-7.450)
[2023-12-25 10:42] LABS: Device NASAL CANNULA; Site Drawn RIGHT BRACHIAL
[2023-12-25 10:43] LABS: Influenza A QL RT-PCR Negative (Negative); Influenza B QL RT-PCR Negative (Negative); RSV RNA, RT-PCR Negative (Negative); SARS-CoV-2 RNA PCR Negative (Negative)
[2023-12-25 11:15] LABS: NT Pro B Type Natriuretic Pept 13300 pg/mL (19.9-100)
[2023-12-25 13:31] LABS: Anion Gap 15 mmol/L (4-12); Blood Urea Nitrogen 98 mg/dL (7-17); Calcium 8.9 mg/dL (8.4-10.2); Carbon Dioxide 24 mmol/L (22-30); Chloride 92 mmol/L (98-107); Estimated CRCL calculation 6 ml/min; Estimated Glomerular Filt Rate 4; Glucose 425 mg/dL (65-110); Potassium 6.3 mmol/L (3.4-5.0); Sodium 131 mmol/L (137-145)
[2023-12-25 14:05] LABS: Hepatitis B Surface Antigen Negative (Negative)
--- NOTE | 2023-12-25 14:10 | PM.IMHP ---
H&P: HPI History of Present Illness Date/Time: 12/25/23 14:10 Chief Complaint: weakness Narrative: 72 y.o female with PMH/of t2dm, , HTN, ESRD on dialysis, CAD, CHF(diastolic), AFib, HLD, RLS, hypothyroidism, depression, RAINA, peripheral neuropathy, h/o CVA, COPD, GERD w/ Gongora's, h/o esophageal stricture, depression, anxiety, COPD/asthma, DVT. Pt reports that she stayed up all night with her - watched TV and could not fall asleep. She was going to dialysis this am and just felt really weak and came to ED. She reports that she missed a dose of lasix but reports being compliant with the rest of meds. Her last dialysis day was sunday (her days are sunday, , and sunday). She is a poor historian- unable to provide any details on her home med list. She had a history of stroke few years ago with no obvious residual just overall balance issues. She is unable to recall what she takes for t2dm and what ehr hga1c or bs had been. She denies smoking (quite few years ago), drinking and any illicit drugs. IN eR: she was wheezing and and her K was high (7 -trended down to 6.3) -she was given calcium gluconate and high-dose albuterol therapy. Lasix and 5 units insulin (BS was adrian-430's) anion gap buut not acidosis. WBC 10.2, Hg 10.4/hct 31.6. Concern for UTI- was started on ceftriaxone Review of Systems Constitutional: Constitutional: Denies chills Cardiovascular: Cardiovascular: Denies chest pain Respiratory: Respiratory: Denies chest congestion Gastrointestinal: Gastrointestinal: Denies abdominal pain Musculoskeletal: Comments: generalized weakness and balance issues [facility] Past Medical History Medical History 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 Cerebrovascular accident Chronic anticoagulation Chronic diastolic (congestive) heart failure Chronic obstructive pulmonary disease Community acquired pneumonia due to Haemophilus influenzae Coronary artery disease involving [place] heart without angina pectoris Deep venous thrombosis Depression Generalized anxiety disorder GERD without esophagitis Hypothyroidism Insulin dependent type 2 diabetes mellitus Obstructive sleep apnea Paroxysmal atrial fibrillation Peripheral polyneuropathy Surgical History Surgical History History of cataract extraction History of cholecystectomy History of gastrostomy tube placement and removal History of tonsillectomy History of tracheostomy Family History Family History Father Hypertension Family history of coronary artery disease Sibling Hypertension Family history of coronary artery disease Mother Cerebrovascular accident Other Asthma Depression Family history of Alzheimer's disease Family history of arthritis Family history of cardiovascular disease Family history of lymphoma Family history of obesity Family history of seizure disorder Social History Social History Social History: Surrogate medical decision maker: Anjum (spouse) or Gwen (daughter) Kyra. Code status: Full code. Smoking packs per day: 2 Smoking cigarettes per day: 40.0 Years smoked: 30 Smoking pack-years: 60.00 Smoking status: Former smoker Tobacco type: cigarettes Second hand tobacco smoke exposure: No Smoking end date: 05/07/89 Alcohol intake: unknown Alcohol use details: special occasions Substance use: former Substance use type: marijuana Last use: 01/05/23 Do You Feel Safe in your Home?: Yes Lack of Transportation: YES Lack of Food: Never True Current Housing: I Have Housing Concerned About Future Housing: No Difficulty Paying Gas/Electric Bills: No Difficulty Paying for Meds: No Currently Unemployed: No Education: High School Diploma/GED Difficulty
[2023-12-25 14:23] LABS: Hepatitis B Surface Anti Res Negative
--- NOTE | 2023-12-25 14:30 | PC.NURSE ---
patient arrived to dialysis unit at 13:55. Cardiac telemetry monitoring on and working, no acute distress at this time.
--- NOTE | 2023-12-25 16:44 | P.CONNP_ITS ---
Assessment and Plan Assessment and plan (1) End stage renal disease: Code(s): N18.6 - End stage renal disease Status: Acute Assessment and Plan: * HD today for her elevated K+ and mild fluid overload along with this being her scheduled treatment day * continue T/T/S outpatient dialysis schedule * follow electrolytes, volume status, and clearance (2) Acute hyperkalemia: Code(s): E87.5 - Hyperkalemia Status: Resolved Assessment and Plan: * due to missed treatment on Sunday * s/p medical management in ER * dialysis today to fully correct * follow repeat levels (3) Acute respiratory failure: Code(s): J96.00 - Acute respiratory failure, unspecified whether with hypoxia or hypercapnia Status: Acute Assessment and Plan: * multifactorial: * COPD exacerbation * mild fluid overload/CHF * reactive airway disease/asthma * fluid removal with dialysis * supplemental oxygen - wean as tolerated * nebulizer treatments and steroids * follow respiratory status (4) UTI (urinary tract infection): Code(s): N39.0 - Urinary tract infection, site not specified Status: Acute Assessment and Plan: * admission UA highly suggestive * follow culture data * on antibiotics (5) COPD (chronic obstructive pulmonary disease): Qualifiers: COPD type: unspecified COPD Qualified Code(s): J44.9 - Chronic obstructive pulmonary disease, unspecified Code(s): J44.9 - Chronic obstructive pulmonary disease, unspecified Status: Acute Assessment and Plan: * continue nebulizer treatments, steroids, and oxygen * follow respiratory status * see #3 (6) Fluid overload: Code(s): E87.70 - Fluid overload, unspecified Status: Acute Assessment and Plan: * known to have large fluid gains in between dialysis treatments * CXR with mild interstitial edema * HD today for electrolytes control and fluid removal * follow volume status (7) Hypertension: Code(s): I10 - Essential (primary) hypertension Status: Chronic Assessment and Plan: * reasonable control at this time * follow trend of hemodynamics (8) Type 2 diabetes mellitus with hyperglycemia: Qualifiers: Diabetes mellitus alf insulin use: with alf use Qualified Code(s): E11.65 - Type 2 diabetes mellitus with hyperglycemia; Z79.4 - skilled nursing (current) use of insulin Code(s): E11.65 - Type 2 diabetes mellitus with hyperglycemia Status: Chronic Assessment and Plan: * follow accu-cheks * glycemic control per hospitalists. I will continue follow the patient with you while she remains hospitalized and make further recommendations as deemed necessary. Thank you for allowing me to participate in care this patient. History of Present Illness Reason for Consult Consult date: 12/25/23 Reason for consult: end stage renal disease Chief Complaint Chief complaint: ESRD requiring HD; COPD/Asthma exac; Heart failure History of Present Illness Narrative: The patient is a 72-year-old female Pap medical history as outlined below presented to [facility] Emergency room with complaints of shortness of breath and generalized weakness. The patient reports that she was up all last night with her wanting TV as she could not fall asleep. Earlier this morning, she felt malaise and generalized weakness in association with some mild shortness of breath. She was scheduled to go to her outpatient d
--- NOTE | 2023-12-25 16:44 | PM.CNNEP ---
Assessment and Plan Assessment and plan (1) End stage renal disease: Code(s): N18.6 - End stage renal disease Status: Acute Assessment and Plan: HD today for her elevated K+ and mild fluid overload along with this being her scheduled treatment day continue T/T/S outpatient dialysis schedule follow electrolytes, volume status, and clearance (2) Acute hyperkalemia: Code(s): E87.5 - Hyperkalemia Status: Resolved Assessment and Plan: due to missed treatment on Sunday s/p medical management in ER dialysis today to fully correct follow repeat levels (3) Acute respiratory failure: Code(s): J96.00 - Acute respiratory failure, unspecified whether with hypoxia or hypercapnia Status: Acute Assessment and Plan: multifactorial: COPD exacerbation mild fluid overload/CHF reactive airway disease/asthma fluid removal with dialysis supplemental oxygen - wean as tolerated nebulizer treatments and steroids follow respiratory status (4) UTI (urinary tract infection): Code(s): N39.0 - Urinary tract infection, site not specified Status: Acute Assessment and Plan: admission UA highly suggestive follow culture data on antibiotics (5) COPD (chronic obstructive pulmonary disease): Qualifiers: COPD type: unspecified COPD Qualified Code(s): J44.9 - Chronic obstructive pulmonary disease, unspecified Code(s): J44.9 - Chronic obstructive pulmonary disease, unspecified Status: Acute Assessment and Plan: continue nebulizer treatments, steroids, and oxygen follow respiratory status see #3 (6) Fluid overload: Code(s): E87.70 - Fluid overload, unspecified Status: Acute Assessment and Plan: known to have large fluid gains in between dialysis treatments CXR with mild interstitial edema HD today for electrolytes control and fluid removal follow volume status (7) Hypertension: Code(s): I10 - Essential (primary) hypertension Status: Chronic Assessment and Plan: reasonable control at this time follow trend of hemodynamics (8) Type 2 diabetes mellitus with hyperglycemia: Qualifiers: Diabetes mellitus 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 I will continue follow the patient with you while she remains hospitalized and make further recommendations as deemed necessary. Thank you for allowing me to participate in care this patient. History of Present Illness Reason for Consult Consult date: 12/25/23 Reason for consult: end stage renal disease Chief Complaint Chief complaint: ESRD requiring HD; COPD/Asthma exac; Heart failure History of Present Illness Narrative: The patient is a 72-year-old female Pap medical history as outlined below presented to [facility] Emergency room with complaints of shortness of breath and generalized weakness. The patient reports that she was up all last night with her wanting TV as she could not fall asleep. Earlier this morning, she felt malaise and generalized weakness in association with some mild shortness of breath. She was scheduled to go to her outpatient dialysis unit for her scheduled dialysis treatment today but given the way she felt, she presented to the ER for further assessment. Workup and evaluation emergency room demonstrated the patient was in mild respiratory distress as she was noted to have audible wheezing on presentation. Routine blood test demonstrated labs consistent with her known history of end-stage renal disease but her chemistry showed severe hyperkalemia with a potassium of 7.0. Furthe
[2023-12-25 18:17] LABS: Glucose Point of Care 323 mg/dl (65-105)
[2023-12-25] MEDS: INSULIN ASPART (*BKC) 100 UNITS/ML 9 UNITS SUB-Q (18:19)
[2023-12-25 20:07] LABS: Glucose Point of Care 397 mg/dl (65-105)
[2023-12-25] MEDS: APIXABAN 2.5 MG TABLET PO (21:27)
[2023-12-25] MEDS: INSULIN GLARGINE (*BKC) 100 UNITS/ML 28 UNITS SUB-Q (21:28)
[2023-12-25] MEDS: rOPINIRole HCL 1 MG TABLET 2 MG BY MOUTH (21:28)
[2023-12-25] MEDS: AMIODARONE HCL 200 MG TABLET PO (21:28)
[2023-12-25] MEDS: INSULIN ASPART (*BKC) 100 UNITS/ML SUB-Q (21:30)
[2023-12-26] VITALS (22 sets, daily range): BP systolic 123–149; BP diastolic 51–79; PULSE 52–63; RESP 16–20; TEMP 36.1–36.4; O2SAT 90–100
[2023-12-26 00:10] LABS: Glucose Point of Care > 500 mg/dl (65-105)
[2023-12-26] MEDS: INSULIN ASPART (*BKC) 100 UNITS/ML 18 UNITS SUB-Q (01:00)
[2023-12-26 01:58] LABS: Anion Gap 15 mmol/L (4-12); Blood Urea Nitrogen 59 mg/dL (7-17); Calcium 8.2 mg/dL (8.4-10.2); Carbon Dioxide 27 mmol/L (22-30); Chloride 89 mmol/L (98-107); Estimated CRCL calculation 10 ml/min; Estimated Glomerular Filt Rate 8; Glucose 572 mg/dL (65-110); Potassium 5.1 mmol/L (3.4-5.0); Sodium 131 mmol/L (137-145)
--- NOTE | 2023-12-26 02:06 | PC.NURSE ---
At approximately 0035, patients daughter exited the room and stated that her mother was having difficulty speaking/finding her words appropriately. Daughter states that this is not normal behavior for the patient. Assessed patient & found her to be no acute distress. Stroke scale was negative & patient was able to follow all motor orders. Dr. Jaimes was contacted & ordered a stat head CT and repeat BMP to be drawn.
[2023-12-26] MEDS: ALBUTEROL SULFATE NEB 2.5 MG/3 ML INH INHALATION (03:38)
[2023-12-26 03:55] LABS: Glucose Point of Care 367 mg/dl (65-105)
[2023-12-26] MEDS: INSULIN ASPART (*BKC) 100 UNITS/ML 12 UNITS SUB-Q (04:36)
[2023-12-26 06:45] LABS: Glucose Point of Care 88 mg/dl (65-105)
[2023-12-26] MEDS: DEXTROSE 50% 25 GM/50 ML SYRINGE IV PUSH (06:45)
--- NOTE | 2023-12-26 07:06 | PC.NURSE ---
At approximately 0630, patient was rounded on & found to be aphasic and confused. Patient was A/Ox4 approximately 20 minutes prior. Patient was assessed and was able to follow commands & complete stroke scale. Blood glucose was obtained, 88 mg/dL. Dr. Jaimes was contacted & gave orders for 12.5 g of D50 IV push and to recheck blood glucose in 15 minutes. D50 administered & blood glucose was found to be 118 mg/dL.
[2023-12-26 07:08] LABS: Glucose Point of Care 119 mg/dl (65-105)
[2023-12-26] MEDS: LEVOTHYROXINE SODIUM 100 MCG, LEVOTHYROXINE SODIUM 75 MCG 175 MCG PO (07:13)
--- NOTE | 2023-12-26 07:14 | PC.NURSE ---
Pt resting in bed speaking random words. When asked to name a series of objects 3/5 answers inappropriate. Right facial droop noted to right side of mouth. Dr. Burch made aware. MRI ordered. Dr. Burch and Charge Nurse Janis at bedside.
[2023-12-26 08:13] LABS: Basophils Absolute Auto 0.1 K/mm3 (0.0-0.1); Basophils Percent Auto 0.6 % (0.2-1.2); Eosinophils Absolute Auto 0.1 K/mm3 (0-0.3); Eosinophils Percent Auto 0.9 % (0-4.4); Hemoglobin 11.2 g/dL (12.0-15.0); Immature Granulocyte Absolute 0.09 K/mm3 (0.00-0.031); Immature Granulocyte Percent A 0.7 % (0-0.5); Lymphocytes Percent Auto 13.7 % (18.3-44.2); Mean Corpuscular HGB Conc 32.9 g/dl (32-36); Mean Corpuscular Volume 100.3 fl (80-100); Monocytes Absolute Auto 1.3 K/mm3 (0.1-0.6); Monocytes Percent Auto 10.2 % (2.6-8.5); Neutrophils Absolute Auto 9.2 K/mm3 (1.3-6.7); Neutrophils Percent Auto 73.9 % (45.5-73.1); Platelet Count Result 288 k/mm3 (150-375); Red Blood Count 3.39 M/mm3 (4.2-5.4); Red Cell Distribution Width 13.4 % (11.5-14.5); White Blood Count 12.5 K/mm3 (4.5-10.0)
[2023-12-26 08:43] LABS: Alanine Aminotransferase 17 U/L (6-35); Albumin Level 4.3 g/dL (3.5-5.1); Alkaline Phosphatase 80 U/L (38-126); Anion Gap 16 mmol/L (4-12); Aspartate Amino Transferase 20 U/L (14-36); Bilirubin,Total 0.5 mg/dL (0.2-1.3); Blood Urea Nitrogen 67 mg/dL (7-17); Calcium 8.6 mg/dL (8.4-10.2); Carbon Dioxide 29 mmol/L (22-30); Chloride 91 mmol/L (98-107); Cholesterol 218 mg/dL (0-200); Estimated CRCL calculation 10 ml/min; Estimated Glomerular Filt Rate 7; Glucose 88 mg/dL (65-110); HDL Direct 64 mg/dL; Magnesium 1.9 mg/dL (1.6-2.3); Potassium 4.5 mmol/L (3.4-5.0); Sodium 136 mmol/L (137-145); Triglycerides 96 mg/dL (<150)
[2023-12-26 08:54] LABS: LDL Cholesterol Direct 94 mg/dL
--- NOTE | 2023-12-26 08:54 | PM.IMPN ---
Progress Note: A&P Assessment and Plan (1) Hyperkalemia: Code(s): E87.5 - Hyperkalemia Status: Acute (2) Diabetes mellitus with hyperglycemia: Code(s): E11.65 - Type 2 diabetes mellitus with hyperglycemia Status: Acute (3) Hypoxia: Code(s): R09.02 - Hypoxemia Status: Acute (4) Pseudohyponatremia: Code(s): R79.89 - Other specified abnormal findings of blood chemistry Status: Acute (5) UTI symptoms: Code(s): R39.9 - Unspecified symptoms and signs involving the genitourinary system Status: Acute (6) Leukocytosis: Code(s): D72.829 - Elevated white blood cell count, unspecified Status: Acute (7) Acute on chronic heart failure: Code(s): I50.9 - Heart failure, unspecified Status: Acute (8) Aphasia: Code(s): R47.01 - Aphasia Status: Acute Plan 72-year-old female with a history of type 2 diabetes mellitus with long-term use of insulin, hypertension, hyperlipidemia, ESRD on dialysis Sunday, CAD, diastolic CHF, atrial fibrillation on apixaban, restless leg syndrome, hypothyroidism, depression and anxiety, RAINA, peripheral neuropathy, history of cerebellar CVA remote presented with imbalance, GERD with Gongora's, history of esophageal stricture, COPD, peripheral neuropathy, history of DVT. Patient presents with shortness of breath. Has been inconsistent history. Fortunately she is a poor historian The patient herself reports she missed Lasix, other family member has reported she missed dialysis. In the ER the patient appeared weak on presentation to the ED. the patient was observed to be wheezing. Her potassium was high at 7. She was given calcium gluconate and high-dose albuterol therapy. Given Lasix and 5 units of insulin. White blood cell count 10.2. Urinalysis demonstrated positive leuk esterase, greater than 100 wbc's, no squamous epithelial cells, no bacteria seen, patient does not admit to urinary symptoms. ----- Slurred speech/mild right facial droop/suspected acute CVA versus recrudescence -sometime in the evening on 12/25/[address] A CT head performed at 1:18 a.m. on 12/25. Official read returning around 6:00 a.m. demonstrating old infarcts in the left cerebellum and bilateral basal ganglia. These are seen on old CTs many years ago. Patient even reports herself she had a cerebellar stroke pointing to the back of her head near the occiput. Around 7:00 a.m. patient noted to have mild facial droop and possibly worsened aphasia. NIH stroke scale 2 due to mild aphasia and a right nasal labial fold flattening at rest only. -pending MRI -neurology consulted, out of the window for tPA -cannot get angiogram due to end-stage renal disease, she does make some urine still. Check carotid Dopplers -check lipid panel, A1c. She does not smoke. Continue to manage blood pressure, can allow permissive hypertension for 24-48 hours. -she is only on apixaban. The discussed with the patient and family about the use of aspirin and the risk of bleed with these combined. She also does not take statin due to muscle cramps. Have to discuss the possibility of trying hypophillic statins -PT OT speech therapy -continue monitoring on telemetry, raise the head of the bed, q.4 hours neuro checks Acute hyperkalemia -resolved status post medical management and dialysis -continue to trend daily Acute hypoxic respiratory failure -multiple etiologies to consider: fluid overload, COPD -resolved, no longer on oxygen -bronchodilators have been placed p.r.n.. She did receive prednisone on admission that has not been continued. She has a minimal end inspiratory wheeze but breathes comfortably. -continue CREDIT SPECIALIST controller inhalers ESRD on dialysis Sunday -nephrology consulted -continue dialysis Paroxysmal atrial fibrillation on apixaban -currently normal sinus rhythm -continue telemetry monitoring -con
[2023-12-26 09:06] LABS: Hemoglobin A1C 9.1 % (<5.7)
[2023-12-26] MEDS: FLUTICASONE/SALMETEROL 230-21 MCG INHALER 1 PUFF 2 PUFF INHALATION ×2 (09:19→20:24)
[2023-12-26] MEDS: UMECLIDINIUM BROMIDE 62.5 MCG ELLIPTA 1 PUFF INHALATION (09:19)
[2023-12-26] MEDS: GABAPENTIN 300 MG CAPSULE 900 MG PO (09:51)
[2023-12-26] MEDS: MONTELUKAST SODIUM 10 MG TABLET PO (09:51)
[2023-12-26] MEDS: rOPINIRole HCL 1 MG TABLET 2 MG BY MOUTH (09:51)
[2023-12-26] MEDS: FLUTICASONE PROPIONATE 0.05% NA SPR 16 GM BTL (*BKC) 2 SPRAY NASAL (09:52)
[2023-12-26] MEDS: METOPROLOL SUCCINATE EXT REL 50 MG TABCR PO (09:52)
[2023-12-26] MEDS: CALCIUM ACETATE 667 MG TABLET PO (09:53)
[2023-12-26] MEDS: LORazepam INJ (*CRX) 2 MG/ML VIAL 0.5 MG IV PUSH (09:54)
[2023-12-26 10:48] LABS: Glucose Point of Care 140 mg/dl (65-105)
--- NOTE | 2023-12-26 11:18 | PC.NURSE ---
MRI of brain reviewed. Dr. Burch advised to hold am dose of Eliquis to resume this evening if pt remains stable.
[2023-12-26 11:27] LABS: Glucose Point of Care 162 mg/dl (65-105)
--- NOTE | 2023-12-26 12:20 | P.PNNP_ITS ---
Progress Note: A&P Assessment and Plan (1) End stage renal disease: Code(s): N18.6 - End stage renal disease Status: Acute Assessment and Plan: * HD tomorrow * continue T/T/S outpatient dialysis schedule * follow electrolytes, volume status, and clearance (2) Acute hyperkalemia: Code(s): E87.5 - Hyperkalemia Status: Resolved Assessment and Plan: * due to missed treatment on Sunday * s/p medical management in ER * dialysis today to fully correct * follow repeat levels (3) Acute respiratory failure: Code(s): J96.00 - Acute respiratory failure, unspecified whether with hypoxia or hypercapnia Status: Acute Assessment and Plan: * resolving/if not resolved * multifactorial: * COPD exacerbation * mild fluid overload/CHF * reactive airway disease/asthma * fluid removal with dialysis * supplemental oxygen - wean as tolerated * nebulizer treatments and steroids * follow respiratory status (4) Acute CVA (cerebrovascular accident): Code(s): I63.9 - Cerebral infarction, unspecified Status: Acute Assessment and Plan: * as noted by symptoms overnight and earlier this AM * confirmed by MRI today * Neurology consulted (5) UTI (urinary tract infection): Code(s): N39.0 - Urinary tract infection, site not specified Status: Acute Assessment and Plan: * admission UA highly suggestive * follow culture data * on antibiotics (6) COPD (chronic obstructive pulmonary disease): Qualifiers: COPD type: unspecified COPD Qualified Code(s): J44.9 - Chronic obstructive pulmonary disease, unspecified Code(s): J44.9 - Chronic obstructive pulmonary disease, unspecified Status: Acute Assessment and Plan: * continue nebulizer treatments, steroids, and oxygen * follow respiratory status * see #3 (7) Fluid overload: Code(s): E87.70 - Fluid overload, unspecified Status: Acute Assessment and Plan: * known to have large fluid gains in between dialysis treatments * CXR with mild interstitial edema on admission * HD today for electrolytes control and fluid removal * follow volume status (8) Hypertension: Code(s): I10 - Essential (primary) hypertension Status: Chronic Assessment and Plan: * reasonable control at this time * follow trend of hemodynamics (9) Type 2 diabetes mellitus with hyperglycemia: Qualifiers: Diabetes mellitus cpc coder insulin use: with cpc coder use Qualified Code(s): E11.65 - Type 2 diabetes mellitus with hyperglycemia; Z79.4 - half-way (current) use of insulin Code(s): E11.65 - Type 2 diabetes mellitus with hyperglycemia Status: Chronic Assessment and Plan: * follow accu-cheks * glycemic control per hospitalists Will continue to follow. Subjective Date/time seen: 12/26/23 12:20 Interval history: Follow-up for end stage renal disease on hemodialysis. Tolerated dialysis yesterday afternoon without any issues or problems; yesterday evening she apparently had some issues with aphasia which prompted a CT scan of brain which only demonstrated old infarcts noted on previous imaging as well; earlier this AM, nursing reported mild facial droop and worsening aphasia -- subsequent MRI of brain done which demonstrates a new/acute infarct; Neurology consulted. Exam Narrative: General: elderly but WD/WN female in NAD; Heart: normal S1
--- NOTE | 2023-12-26 12:20 | PM.PNNEP ---
Progress Note: A&P Assessment and Plan (1) End stage renal disease: Code(s): N18.6 - End stage renal disease Status: Acute Assessment and Plan: HD tomorrow continue T/T/S outpatient dialysis schedule follow electrolytes, volume status, and clearance (2) Acute hyperkalemia: Code(s): E87.5 - Hyperkalemia Status: Resolved Assessment and Plan: due to missed treatment on Sunday s/p medical management in ER dialysis today to fully correct follow repeat levels (3) Acute respiratory failure: Code(s): J96.00 - Acute respiratory failure, unspecified whether with hypoxia or hypercapnia Status: Acute Assessment and Plan: resolving/if not resolved multifactorial: COPD exacerbation mild fluid overload/CHF reactive airway disease/asthma fluid removal with dialysis supplemental oxygen - wean as tolerated nebulizer treatments and steroids follow respiratory status (4) Acute CVA (cerebrovascular accident): Code(s): I63.9 - Cerebral infarction, unspecified Status: Acute Assessment and Plan: as noted by symptoms overnight and earlier this AM confirmed by MRI today Neurology consulted (5) UTI (urinary tract infection): Code(s): N39.0 - Urinary tract infection, site not specified Status: Acute Assessment and Plan: admission UA highly suggestive follow culture data on antibiotics (6) COPD (chronic obstructive pulmonary disease): Qualifiers: COPD type: unspecified COPD Qualified Code(s): J44.9 - Chronic obstructive pulmonary disease, unspecified Code(s): J44.9 - Chronic obstructive pulmonary disease, unspecified Status: Acute Assessment and Plan: continue nebulizer treatments, steroids, and oxygen follow respiratory status see #3 (7) Fluid overload: Code(s): E87.70 - Fluid overload, unspecified Status: Acute Assessment and Plan: known to have large fluid gains in between dialysis treatments CXR with mild interstitial edema on admission HD today for electrolytes control and fluid removal follow volume status (8) Hypertension: Code(s): I10 - Essential (primary) hypertension Status: Chronic Assessment and Plan: reasonable control at this time follow trend of hemodynamics (9) Type 2 diabetes mellitus with hyperglycemia: Qualifiers: Diabetes mellitus terminal operations manager insulin use: with terminal operations manager use Qualified Code(s): E11.65 - Type 2 diabetes mellitus with hyperglycemia; Z79.4 - termite control servicer (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 Subjective Date/time seen: 12/26/23 12:20 Interval history: Follow-up for end stage renal disease on hemodialysis. Tolerated dialysis yesterday afternoon without any issues or problems; yesterday evening she apparently had some issues with aphasia which prompted a CT scan of brain which only demonstrated old infarcts noted on previous imaging as well; earlier this AM, nursing reported mild facial droop and worsening aphasia -- subsequent MRI of brain done which demonstrates a new/acute infarct; Neurology consulted. Exam Narrative: General: elderly but WD/WN female in NAD; Heart: normal S1 and S2; no rub Lungs: clear anteriorly; decreased at bases Abdomen: soft, nontender, nondistended, positive bowel sounds Extremities: no cyanosis or clubbing; no edema Skin: warm and dry Neuro: lethargic at this time Objective Data Vital Signs Vital Signs: Vital Signs Temp Pulse Resp BP Pulse Ox O2 Del Method O2 Flow Rate 12/26/23 11:31 96.9 F L 56 L 18 149/79 H 96 12/26/23 10:00 56 L 12/26/23 08:00 60 12/26/23 09:52 53 L 12/26/23 09:20 97 Nasal
--- NOTE | 2023-12-26 12:26 | PC.NURSE ---
Resting with eyes closed. Arouses to painful stimuli. Does not follow commands at this time. Pupils equal and reactive. Dr. Benedict made aware. Reports he will be over to see pt.
--- NOTE | 2023-12-26 13:08 | WPDNEURCNPN ---
Consult date: 12/26/23 HPI: Gregoria Rae is a 72 year old femaleAdmitted to the hospital through the emergency room where she was brought by the EMS for the complaints of generalized weakness patient has ongoing history of 1. End-stage renal disease requiring dialysis on Tuesdays and Saturdays patient had a full run of dialysis but did not return on Sunday due to transportation issues she was also reportedly wheezing with exertion causes a history of underlying bronchial asthma and COPD and she complained of chest discomfort as well she has not been taking you furosemide which has been prescribed to her her other medication at the time of admission to the ER included insulin she is allergic to multiple medications in the past she has ongoing history of multiple problems such as cerebrovascular accident, asthma COPD overlap syndrome, 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, deep venous thrombosis, end-stage renal disease hemodialysis, diabetes mellitus insulin dependent, and paroxysmal atrial fibrillation, she is smoking packs per day is too 40 smoking cigarettes per day years smoked 30 and smoking pack years 60 though at present she is former smoker on initial exam in the emergency room her generally exam was with chronically ill appearing well nourished but in no obvious acute distress vital signs were normal except blood pressure 174/66 and the routine blood studies were abnormal blood sugar of 432 BUN of 96 creatinine of 9.10 initial chest x-ray revealed cardiomegaly with mild interstitial edema EKG . On the floor she knew it developed right facial droop with difficulty in speech CT scan of the head was done in emergency which revealed old infarct in the left cerebellum and bilateral basal ganglia there was no bleed this morning MRI documented acute infarct in the left hippocampus left posterior frontal lobe with no hemorrhage along with the brain atrophy and neuro consultation has been obtained for that particular reason. [facility] Past Medical History Medical History Asthma-COPD overlap syndrome 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 Cerebrovascular accident Chronic anticoagulation Chronic diastolic (congestive) heart failure Chronic obstructive pulmonary disease Community acquired pneumonia due to Haemophilus influenzae Coronary artery disease involving mcgrath heart without angina pectoris Deep venous thrombosis Depression ESRD on hemodialysis Generalized anxiety disorder GERD without esophagitis Hypothyroidism Insulin dependent type 2 diabetes mellitus Obstructive sleep apnea Paroxysmal atrial fibrillation Peripheral polyneuropathy Surgical History Surgical History History of cataract extraction History of cholecystectomy History of gastrostomy tube placement and removal History of tonsillectomy History of tracheostomy Family History Family History Father Hypertension Family history of coronary artery disease Sibling Hypertension Family history of coronary artery disease Mother Cerebrovascular accident Other Asthma Depression Family history of Alzheimer's disease Family history of arthritis Family history of cardiovascular disease Family history of lymphoma Family history of obesity Family history of seizure disorder Social History Social History Social History: Surrogate medical decision maker: Anjum (spouse) or Gwen (daughter) Kyra. Code status: Full code. Smoking packs per day: 2 Smoking cigarettes per day: 40.0 Years smoked: 30 Smoking pack-years: 60.00 Smoking status: Former smoker Tobacco type: cigarettes Second hand tobacco smoke exposure: No Smoking end date: 05/07/89 Alcohol intake: unknown Alcohol use details: special occasions Subs
--- NOTE | 2023-12-26 13:30 | PCSTNOTE ---
ST attempted twice, at 11:30 and at 1:30 to arouse patient for evaluation. She would not arouse or stay awake. Will attempt again tomorrow.
--- NOTE | 2023-12-26 14:51 | WPDNEURCNPN ---
Assessment and Plan Assessment and plan (1) Diabetes mellitus with hyperglycemia: Code(s): E11.65 - Type 2 diabetes mellitus with hyperglycemia Status: Acute (2) Aphasia: Code(s): R47.01 - Aphasia Status: Acute (3) Left sided cerebral hemisphere cerebrovascular accident: Code(s): I63.9 - Cerebral infarction, unspecified Status: Acute Plan 1. Acute stroke involving the left hemisphere particularly the hippocampus and posterior frontal lobe as documented by the MRI with clinical finding of the right-sided deficit along with the aphasia at this particular time 2 ongoing chronic multiple problems as outlined. Patient will continue on aspirin and Plavix, discussed with the daughter, will obtain the echocardiogram and further recommendation a Consult date: 12/26/23 HPI: Gregoria Rae is a 72 year old femaleAdmitted to the hospital through the emergency room where she was brought by the EMS for the complaints of generalized weakness. Patient has ongoing history of end-stage renal disease requiring dialysis on Tuesdays and Saturdays. Patient had a full run of dialysis but did not return on Sunday due to transport issues. She was also reportedly wheezing with exertion because of the history of underlying bronchial asthma and COPD. She complained of chest discomfort as well . She has not been taking future side which has been prescribed to her by her physician phone with the other medications including the insulin. She is allergic to multiple medication as documented. She has history of multiple problems including stroke, bronchial asthma, asthma with COPD overlap syndrome, 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, deep venous thrombosis and end-stage renal disease for which she is on hemodialysis, diabetes mellitus insulin dependent, and paroxysmal atrial fibrillation. in the emergency room her general physical exam was with chronically ill-appearing but in no obvious acute distress vital signs were normal except blood pressure 174/66 and routine blood studies were abnormal with blood sugar of 432, BUN of 96, creatinine of 9.1 initial chest x-ray revealed cardiomegaly with mild interstitial edema. On the floor she she developed right facial droop with difficulties in speech at that time CT scan of the head was done to rule out the possibility of bleed but it revealed old infarct in left cerebellum bilateral basal ganglia there was no bleed left posterior frontal lobe no bleed and brain atrophy that neurology consultation was obtained. Review of Systems Review of Systems: All systems reviewed & are unremarkable except as noted in HPI and below PMFSH Past Medical History Medical History Asthma-COPD overlap syndrome 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 Cerebrovascular accident Chronic anticoagulation Chronic diastolic (congestive) heart failure Chronic obstructive pulmonary disease Community acquired pneumonia due to Haemophilus influenzae Coronary artery disease involving [place] heart without angina pectoris Deep venous thrombosis Depression ESRD on hemodialysis Generalized anxiety disorder GERD without esophagitis Hypothyroidism Insulin dependent type 2 diabetes mellitus Obstructive sleep apnea Paroxysmal atrial fibrillation Peripheral polyneuropathy Surgical History Surgical History History of cataract extraction History of cholecystectomy History of gastrostomy tube placement and removal History of tonsillectomy History of tracheostomy Family History Family History Father Hypertension Family history of coronary artery disease Sibling Hypertension Family history of coronary artery disease Mother Cerebrovascular accident Other Asthma Depression Family history of Alzheimer's disease Family history of arthritis
[2023-12-26 17:04] LABS: Glucose Point of Care 198 mg/dl (65-105)
--- NOTE | 2023-12-26 18:11 | PC.NURSE ---
Pt able to swallow ice chip without difficulty. Attempted to sip water. Held water in mouth, took two weak gulps to get sip down. Small cough after sip. Dr. Burch made aware. Will continue to hold po meds and insulin. Will attempt bedside swallow in AM.
[2023-12-26 20:27] LABS: Glucose Point of Care 190 mg/dl (65-105)
[2023-12-27] VITALS (37 sets, daily range): BP systolic 107–164; BP diastolic 42–103; PULSE 52–88; RESP 12–20; TEMP 36.2–37; O2SAT 94–100
[2023-12-27 05:10] LABS: Basophils Absolute Auto 0.1 K/mm3 (0.0-0.1); Basophils Percent Auto 1.1 % (0.2-1.2); Eosinophils Absolute Auto 0.5 K/mm3 (0-0.3); Eosinophils Percent Auto 5.5 % (0-4.4); Hematocrit 32.7 % (37.0-47.0); Hemoglobin 10.7 g/dL (12.0-15.0); Immature Granulocyte Absolute 0.04 K/mm3 (0.00-0.031); Immature Granulocyte Percent A 0.4 % (0-0.5); Lymphocytes Absolute Auto 1.92 K/mm3 (0.9-3.2); Lymphocytes Percent Auto 21.6 % (18.3-44.2); Mean Corpuscular HGB Conc 32.7 g/dl (32-36); Mean Corpuscular Hemoglobin 32.9 pg (26-34); Mean Corpuscular Volume 100.6 fl (80-100); Mean Platelet Volume 11.1 fl (7.4-10.4); Monocytes Absolute Auto 0.8 K/mm3 (0.1-0.6); Monocytes Percent Auto 9.2 % (2.6-8.5); Neutrophils Absolute Auto 5.5 K/mm3 (1.3-6.7); Neutrophils Percent Auto 62.2 % (45.5-73.1); Platelet Count Result 244 k/mm3 (150-375); Red Blood Count 3.25 M/mm3 (4.2-5.4); Red Cell Distribution Width 13.5 % (11.5-14.5); White Blood Count 8.9 K/mm3 (4.5-10.0)
[2023-12-27 05:24] LABS: Anion Gap 16 mmol/L (4-12); Blood Urea Nitrogen 75 mg/dL (7-17); Calcium 8.2 mg/dL (8.4-10.2); Carbon Dioxide 25 mmol/L (22-30); Chloride 93 mmol/L (98-107); Estimated CRCL calculation 8 ml/min; Estimated Glomerular Filt Rate 6; Glucose 180 mg/dL (65-110); Potassium 4.5 mmol/L (3.4-5.0); Sodium 134 mmol/L (137-145)
--- NOTE | 2023-12-27 06:47 | PC.NURSE ---
At approximately 0339, I noticed in the camera for the room that the patient's son was bending down on the floor trying to get the patient up. The patient had been sitting in a chair next to the son prior. Upon entering, the patient's son stated that he needed help getting his mother off the floor, as he had dozed off for a minute, and she slid out of her chair to the floor in front of the chair. Assist was given back to her chair and appropriate healthcare team memebers were notified (charge nurse, hospitalist, and nursing electric repair supervisor). Son stated he didn't believe that she hit her head, and patient shook her head no when I asked if she hit anything besides her buttocks (patient is aphasic). Proper fall and post-fall assessment completed. Patient placed in recliner with chair alarm in place. Son present in the room.
[2023-12-27] MEDS: FLUTICASONE/SALMETEROL 230-21 MCG INHALER 1 PUFF 2 PUFF INHALATION (07:02)
[2023-12-27] MEDS: UMECLIDINIUM BROMIDE 62.5 MCG ELLIPTA 1 PUFF INHALATION (07:02)
[2023-12-27 08:08] LABS: Glucose Point of Care 179 mg/dl (65-105)
--- NOTE | 2023-12-27 08:15 | PC.NURSE ---
Transported to dialysis via bed. Sitter at bedside.
--- NOTE | 2023-12-27 08:25 | PCPTNOTE ---
Attempted PT evaluation, pt in dialysis. Will follow.
[2023-12-27 11:13] LABS: Procalcitonin 0.2 ng/mL
--- NOTE | 2023-12-27 11:50 | P.PNNP_ITS ---
Progress Note: A&P Assessment and Plan (1) End stage renal disease: Code(s): N18.6 - End stage renal disease Status: Acute Assessment and Plan: * HD today * continue T/T/S outpatient dialysis schedule * follow electrolytes, volume status, and clearance (2) Acute CVA (cerebrovascular accident): Code(s): I63.9 - Cerebral infarction, unspecified Status: Acute Assessment and Plan: * as noted by symptoms overnight and earlier this AM * confirmed by MRI today * Neurology following (3) Acute respiratory failure: Code(s): J96.00 - Acute respiratory failure, unspecified whether with hypoxia or hypercapnia Status: Acute Assessment and Plan: * resolving/if not resolved * multifactorial: * COPD exacerbation * mild fluid overload/CHF * reactive airway disease/asthma * fluid removal with dialysis * supplemental oxygen - wean as tolerated * nebulizer treatments and steroids * follow respiratory status (4) Acute hyperkalemia: Code(s): E87.5 - Hyperkalemia Status: Resolved Assessment and Plan: * due to missed treatment on Sunday * s/p medical management in ER * dialysis has corrected this issue * follow repeat levels (5) UTI (urinary tract infection): Code(s): N39.0 - Urinary tract infection, site not specified Status: Acute Assessment and Plan: * admission UA highly suggestive * follow culture data * on antibiotics (6) COPD (chronic obstructive pulmonary disease): Qualifiers: COPD type: unspecified COPD Qualified Code(s): J44.9 - Chronic obstructive pulmonary disease, unspecified Code(s): J44.9 - Chronic obstructive pulmonary disease, unspecified Status: Acute Assessment and Plan: * continue nebulizer treatments, steroids, and oxygen * follow respiratory status * see #3 (7) Fluid overload: Code(s): E87.70 - Fluid overload, unspecified Status: Acute Assessment and Plan: * known to have large fluid gains in between dialysis treatments * CXR with mild interstitial edema on admission * HD today for electrolytes control and fluid removal * follow volume status (8) Hypertension: Code(s): I10 - Essential (primary) hypertension Status: Chronic Assessment and Plan: * reasonable control at this time * follow trend of hemodynamics (9) Type 2 diabetes mellitus with hyperglycemia: Qualifiers: Diabetes mellitus termination clerk insulin use: with termination clerk use Qualified Code(s): E11.65 - Type 2 diabetes mellitus with hyperglycemia; Z79.4 - joint terminal attack controller (current) use of insulin Code(s): E11.65 - Type 2 diabetes mellitus with hyperglycemia Status: Chronic Assessment and Plan: * follow accu-cheks * glycemic control per hospitalists Will continue to follow. Subjective Date/time seen: 12/27/23 11:50 Interval history: Follow-up for end stage renal disease on hemodialysis. Tolerating dialysis treatment at the time of my visit (seen on HD at 11:40AM); no apparent distress noted when seen; aphasia persists and follows commands; it would seem patient comprehension is limited currently. Exam Narrative: General: elderly but WD/WN female in NAD Heart: normal S1 and S2; no rub Lungs: clear anteriorly; decreased at bases Abdomen: soft, nontender, nondistended, positive bowel sounds Extremities: no cyanosis or clubbing; no edema Skin: no rash
--- NOTE | 2023-12-27 11:50 | PM.PNNEP ---
Progress Note: A&P Assessment and Plan (1) End stage renal disease: Code(s): N18.6 - End stage renal disease Status: Acute Assessment and Plan: HD today continue T/T/S outpatient dialysis schedule follow electrolytes, volume status, and clearance (2) Acute CVA (cerebrovascular accident): Code(s): I63.9 - Cerebral infarction, unspecified Status: Acute Assessment and Plan: as noted by symptoms overnight and earlier this AM confirmed by MRI today Neurology following (3) Acute respiratory failure: Code(s): J96.00 - Acute respiratory failure, unspecified whether with hypoxia or hypercapnia Status: Acute Assessment and Plan: resolving/if not resolved multifactorial: COPD exacerbation mild fluid overload/CHF reactive airway disease/asthma fluid removal with dialysis supplemental oxygen - wean as tolerated nebulizer treatments and steroids follow respiratory status (4) Acute hyperkalemia: Code(s): E87.5 - Hyperkalemia Status: Resolved Assessment and Plan: due to missed treatment on Sunday s/p medical management in ER dialysis has corrected this issue follow repeat levels (5) UTI (urinary tract infection): Code(s): N39.0 - Urinary tract infection, site not specified Status: Acute Assessment and Plan: admission UA highly suggestive follow culture data on antibiotics (6) COPD (chronic obstructive pulmonary disease): Qualifiers: COPD type: unspecified COPD Qualified Code(s): J44.9 - Chronic obstructive pulmonary disease, unspecified Code(s): J44.9 - Chronic obstructive pulmonary disease, unspecified Status: Acute Assessment and Plan: continue nebulizer treatments, steroids, and oxygen follow respiratory status see #3 (7) Fluid overload: Code(s): E87.70 - Fluid overload, unspecified Status: Acute Assessment and Plan: known to have large fluid gains in between dialysis treatments CXR with mild interstitial edema on admission HD today for electrolytes control and fluid removal follow volume status (8) Hypertension: Code(s): I10 - Essential (primary) hypertension Status: Chronic Assessment and Plan: reasonable control at this time follow trend of hemodynamics (9) Type 2 diabetes mellitus with hyperglycemia: Qualifiers: Diabetes mellitus watcher automat long goods insulin use: with fci use Qualified Code(s): E11.65 - Type 2 diabetes mellitus with hyperglycemia; Z79.4 - care home (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 Subjective Date/time seen: 12/27/23 11:50 Interval history: Follow-up for end stage renal disease on hemodialysis. Tolerating dialysis treatment at the time of my visit (seen on HD at 11:40AM); no apparent distress noted when seen; aphasia persists and follows commands; it would seem patient comprehension is limited currently. Exam Narrative: General: elderly but WD/WN female in NAD Heart: normal S1 and S2; no rub Lungs: clear anteriorly; decreased at bases Abdomen: soft, nontender, nondistended, positive bowel sounds Extremities: no cyanosis or clubbing; no edema Skin: no rash Objective Data Vital Signs Vital Signs: Vital Signs Temp Pulse Resp BP Pulse Ox O2 Del Method 12/27/23 10:45 74 133/65 12/27/23 10:30 57 L 145/66 H 12/27/23 10:15 65 139/65 12/27/23 10:00 64 123/103 H 12/27/23 09:45 64 119/71 12/27/23 09:30 66 136/85 12/27/23 09:15 66 147/61 H 12/27/23 08:00 59 L 12/27/23 09:00 67 157/70 H 12/27/23 08:45 66 143/87 H 12/27/23 08:30 58 L 156/71 H 12/27/23 08:23 59 L 144/102 H
--- NOTE | 2023-12-27 12:21 | PM.IMPN ---
Progress Note: A&P Assessment and Plan (1) Hyperkalemia: Code(s): E87.5 - Hyperkalemia Status: Acute (2) Diabetes mellitus with hyperglycemia: Code(s): E11.65 - Type 2 diabetes mellitus with hyperglycemia Status: Acute (3) Hypoxia: Code(s): R09.02 - Hypoxemia Status: Acute (4) Pseudohyponatremia: Code(s): R79.89 - Other specified abnormal findings of blood chemistry Status: Acute (5) UTI symptoms: Code(s): R39.9 - Unspecified symptoms and signs involving the genitourinary system Status: Acute (6) Leukocytosis: Code(s): D72.829 - Elevated white blood cell count, unspecified Status: Acute (7) Acute on chronic heart failure: Code(s): I50.9 - Heart failure, unspecified Status: Acute (8) Aphasia: Code(s): R47.01 - Aphasia Status: Acute Plan 72-year-old female with a history of type 2 diabetes mellitus with long-term use of insulin, hypertension, hyperlipidemia, ESRD on dialysis Sunday, CAD, diastolic CHF, atrial fibrillation on apixaban, restless leg syndrome, hypothyroidism, depression and anxiety, RAINA, peripheral neuropathy, history of cerebellar CVA remote presented with imbalance, GERD with Gongora's, history of esophageal stricture, COPD, peripheral neuropathy, history of DVT. Patient presents with shortness of breath. Has been inconsistent history. Fortunately she is a poor historian The patient herself reports she missed Lasix, other family member has reported she missed dialysis. In the ER the patient appeared weak on presentation to the ED. the patient was observed to be wheezing. Her potassium was high at 7. She was given calcium gluconate and high-dose albuterol therapy. Given Lasix and 5 units of insulin. White blood cell count 10.2. Urinalysis demonstrated positive leuk esterase, greater than 100 wbc's, no squamous epithelial cells, no bacteria seen, patient does not admit to urinary symptoms. ----- Acute CVA. Continue aspirin and statin. CT angiogram pending. Management and discussion ongoing with Neurology. Family meeting with them has been set up for 2:00 p.m.. NPO for barium swallow. Check ABG. Continue therapy. Pending echocardiogram. Full code. Continue PRINTING AND STAMPING SUPERVISOR Protonix Continue PRINTING AND STAMPING SUPERVISOR Eliquis Fall precautions NPO, pending barium swallow Neurology to meet with family. Subjective Date/time seen: 12/27/23 12:21 Interval history: Mixed aphasia. She is agitated and follows commands but does not comprehend very well. Review of Systems Review of Systems: All systems reviewed & are unremarkable except as noted in HPI and below (Subjective) Exam Const: Other: Follows commands intermittently, mixed aphasia Neck: Neck: supple Resp: Effort & Inspection: normal respiratory effort Auscultation: clear to auscultation bilaterally Cardio: Rate: regular rate Rhythm: regular rhythm GI: GI Palp: Yes Soft to palpation and No Tenderness to palpation present (GI) Neuro: Other: Does not participate with exam Extrem: General: no edema Objective Data Vital Signs Vital Signs: Vital Signs - 24 hr 12/26/23 14:00 12/26/23 16:00 12/26/23 16:00 Temperature Pulse Rate 61 55 L Respiratory Rate Blood Pressure Pulse Oximetry 100 Oxygen Delivery Room Air 12/26/23 16:00 12/26/23 18:00 12/26/23 20:27 Temperature 97.3 F L Pulse Rate 55 L 56 L 62 Respiratory Rate 20 16 Blood Pressure 145/53 H Pulse Oximetry 90 Oxygen Delivery 12/26/23 20:00 12/26/23 20:37 12/26/23 20:00 Temperature 97.6 F Pulse Rate 54 L 58 L Respiratory Rate 20 Blood Pressure 127/55 L Pulse Oximetry 90 92 Oxygen Delivery Room Air 12/26/23 21:59 12/26/23 23:54 12/27/23 00:00 Temperature 97.6 F Pulse Rate 52 L 54 L Respiratory Rate 20 Blood Pressure 123/53 L Pulse Oximetry 100 100 Oxygen Delivery Room Air 12/27/23 00:00 0
--- NOTE | 2023-12-27 12:29 | PC.NURSE ---
Pt returned to floor from dialysis.
[2023-12-27 12:45] LABS: Glucose Point of Care 128 mg/dl (65-105)
--- NOTE | 2023-12-27 13:22 | PCSTNOTE ---
Please refer to the Bedside Swallow Evaluation in the EMR. Please note, silent aspiration cannot be ruled out at bedside.
--- NOTE | 2023-12-27 13:39 | PCOTNOTE ---
Attempted to see pt for OT evaluation however pt is currently in dialysis at this time. Pt also has a CT and swallow study for later in ther day. Will continue to follow.
--- NOTE | 2023-12-27 14:44 | PCSTNOTE ---
Please refer to the Modified Barium Swallow Evaluation in the EMR.
[2023-12-27 15:02] LABS: Alveolar/Arterial O2 Gradient 29.1 mmHg; Base Excess ABG 1.1 mEq/l (+/-2.0); Carboxyhemoglobin 0.8 % THb (0-2.0); Fractional Inspired Oxygen 21 %; HCO3 ABG 25.4 mEq/l (22.0-26.0); Methemoglobin ABG 0.3 %THb (0-1.5); Oxygen Content ABG 13.9 %vol (16.0-22.0); Oxygen Saturation ABG 95.2 % (95.0-100.0); Oxyhemoglobin 93.1 % THb (90.0-100.0); PCO2 ABG 39.2 mmHg (35.0-45.0); PO2 ABG 73.7 mmHg (80.0-100.0); PO2 FiO2 Ratio Arterial Blood 3.51 %; Reduced Hemoglobin 5.8 %THb (0-5.0); Total Hemoglobin 10.6 g/dL (12.0-18.0); pH ABG 7.429 (7.350-7.450)
[2023-12-27 15:03] LABS: Site Drawn RIGHT BRACHIAL
[2023-12-27] MEDS: PANTOPRAZOLE SODIUM IV 40 MG VIAL IV PUSH (15:08)
--- NOTE | 2023-12-27 17:18 | WPDNEUROPN ---
Progress Note: A&P Assessment and Plan (1) Left sided cerebral hemisphere cerebrovascular accident: Code(s): I63.9 - Cerebral infarction, unspecified Status: Acute Assessment and Plan: CT angiogram of the head and neck was performed today which shows complete occlusion of the left M2 segment. MRI of the brain confirmed infarct in the left hemisphere involving cortical areas which could correlate with well with the clinical presentation of predominantly aphasia but she also has mild right facial and right upper limb weakness and difficulty swallowing. Speech therapy has evaluated her and have decided suggested to hold feeding by mouth for now since it is possible that over the course of time she may improved. (2) CKD (chronic kidney disease): Code(s): N18.9 - Chronic kidney disease, unspecified Status: Acute (3) Type 2 diabetes mellitus with hyperglycemia: Qualifiers: Diabetes mellitus laborer marine terminal insulin use: with laborer marine terminal use Qualified Code(s): E11.65 - Type 2 diabetes mellitus with hyperglycemia; Z79.4 - USP (current) use of insulin Code(s): E11.65 - Type 2 diabetes mellitus with hyperglycemia Status: Chronic Time Spent With Patient Time: Patient daughter is a nurse in charge his ICU nurse spoke to her twice today and at length and discussed about the condition and the prognosis. The cerebral infarction such as this can worsen in the 1st 2-5 days due to edema around the infarction. The recovery also depends upon the collaterals. The head CT angiogram and overall findings do not suggest any possible intervention at this time. The patient should be treated with the anticoagulation due to atrial fibrillation and low-dose aspirin such as 81 mg with caution since the risk of bleeding remain. I would not suggest adding another anti-platelet because into certainly increase the risk of bleeding further. Use of statin is desirable and I think that he already trying to introduce a low dose Crestor. Sometimes the left hemispheric stroke her depression or agitation can issue and symptomatic treatment may be offered. Subjective Date/time seen: 12/27/23 17:18 Interval history: The patient is [age] years old with history of diabetes mellitus and chronic kidney disease admitted to the hospital on 12/25/2023. She was noted to have symptoms of speech difficulty yesterday morning. MRI of the brain shows infarct in the left hemisphere. Overnight she has progressed. At times he appears confused however according to the nursing staff previous 60 could not stand given commands but could not talk but now she can neither understand or talk and seems to be somewhat upset or agitated at times. His carotid Doppler study was performed which shows less than 50% narrowing on both sides. Patient has had dialysis today. There is also history of atrial fibrillation and she is on anticoagulation. Subsequently aspirin was added. She could not tolerate atorvastatin since he developed muscle cramp and hence a low-dose Crestor was added. Review of Systems Review of Systems: ROS unobtainable: Yes unobtainable due to mental status Exam Narrative: The patient is awake and for most part she does not understand or speak however she will follow occasional commands particularly with her daughter. She could not open her mouth or raise her left hand but she did raise her left leg upon command and thereafter there was some perseveration or repetition of the same despite her the command. At this time the patient appears to have global aphasia. There is a flattening of the right nasal labial fold. Difficult to evaluate her tongue. She has been noted to have difficulty swallowing the speech therapist at put her or no feeding at by mouth at this time. She has mild weakness of right upper limb compared to the left side however she seems to be moving both lower limb. Difficult to evaluate her strength in the lower limbs p
[2023-12-27 17:20] LABS: Glucose Point of Care 143 mg/dl (65-105)
[2023-12-27 22:03] LABS: Cholesterol 191 mg/dL (0-200); HDL Direct 50 mg/dL; Triglycerides 226 mg/dL (<150)
[2023-12-27 22:13] LABS: LDL Cholesterol Direct 72 mg/dL
[2023-12-27 23:09] LABS: Folic Acid 6.9 ng/mL (2.76->20)
[2023-12-28] VITALS (19 sets, daily range): BP systolic 124–169; BP diastolic 41–80; PULSE 51–112; RESP 15–99; TEMP 36.4–36.9; O2SAT 94–100
--- NOTE | 2023-12-28 | ECHO_ITS ---
Patient Info Name: Gregoria Rae Age: 73 years : 1950 Gender: Female Ht: 64 in Wt: 240 lbs BSA: 2.27 m2 HR: 54 bpm BP: 164 / 54 mmHg Heart Rhythm: Bradycardia, Sinus Rhythm Technical Quality: Fair Exam Date: 12/28/2023 3:44 PM Exam Location: Echo Lab Patient Status: Inpatient Admit Date: 12/26/2023 Staff Ordering Physician: Pamela Burch MD Location Worker: Rachel Hinds RDCS Attending Provider: Varghese Salmeron MD Exam Type: CA echo dop bubble study w con Study Info Indications - stroke Complete two-dimentional, color flow and Doppler transthoracic echocardiogram is performed with agitated saline and with contrast to opacify the left ventricle and to improve the delineation of the left ventricle endocardial borders. Contrast/Agitated Saline Contrast/Ag. Saline: Definity Amount: 2.00 ml Administered By: Rachel Hinds RDCS Existing IV Access: Yes IV Access Condition: patent with no signs of infiltration Contrast/Ag. Saline: Agitated Saline Amount: 20.00 ml Existing IV Access: Yes IV Access Condition: patent with no signs of infiltration Summary 1. Left ventricular chamber dimension is normal. 2. Left ventricular systolic function is normal, estimated at 60-65%. 3. There is moderately increased left ventricular wall thickness. 4. Right ventricular systolic function is normal. 5. Left atrial chamber dimension is severely enlarged. 6. Intact interatrial septum visualized by color flow and agitated saline imaging. Negative bubble study. 7. There is moderate aortic valve calcification. 8. There is mild aortic valve stenosis with a peak velocity of 198 cm/s, mean gradient of 8 mmHg, and aortic valve area of 1.4 cm2. 9. The mitral valve has thickened leaflets. 10. The mitral valve annulus is severely calcified. 11. There is mild mitral valve regurgitation. 12. There is mild tricuspid valve regurgitation. Left Ventricle Left ventricular chamber dimension is normal. Left ventricular systolic function is normal, estimated at 60-65%. There is moderately increased left ventricular wall thickness. The left ventricular diastolic function is abnormal. Right Ventricle Right ventricular chamber dimension is normal. Right ventricular systolic function is normal. Left Atria Left atrial chamber dimension is severely enlarged. Right Atria Right atrial chamber dimension is normal. Atrial Septum Intact interatrial septum visualized by color flow and agitated saline imaging. Negative bubble study. Aortic Valve The aortic valve is probable trileaflet. There is mild aortic valve stenosis with a peak velocity of 198 cm/s, mean gradient of 8 mmHg, and aortic valve area of 1.4 cm2. There is no aortic valve regurgitation. There is moderate aortic valve calcification. Pulmonic Valve The pulmonic valve is not well visualized. There is no pulmonic regurgitation. Mitral Valve The mitral valve has thickened leaflets. There is mild mitral valve regurgitation. The mitral valve annulus is severely calcified. Tricuspid Valve There is mild tricuspid valve regurgitation. Pericardium/Pleural There is no pericardial effusion. Inferior Vena Cava Inferior vena cava is not well visualized. Aorta The aortic root size at the sinus of Valsalva is normal. Left Ventricular Outflow Tract Name Value Normal
[2023-12-28 05:29] LABS: Hematocrit 35.8 % (37.0-47.0); Hemoglobin 11.2 g/dL (12.0-15.0); Mean Corpuscular HGB Conc 31.3 g/dl (32-36); Mean Corpuscular Volume 102.3 fl (80-100); Mean Platelet Volume 10.3 fl (7.4-10.4); Platelet Count Result 288 k/mm3 (150-375); Red Cell Distribution Width 13.4 % (11.5-14.5); White Blood Count 7.8 K/mm3 (4.5-10.0)
[2023-12-28 05:40] LABS: Anion Gap 12 mmol/L (4-12); Blood Urea Nitrogen 38 mg/dL (7-17); Calcium 8.6 mg/dL (8.4-10.2); Carbon Dioxide 28 mmol/L (22-30); Chloride 98 mmol/L (98-107); Estimated CRCL calculation 11 ml/min; Estimated Glomerular Filt Rate 8; Glucose 145 mg/dL (65-110); Potassium 4.8 mmol/L (3.4-5.0); Sodium 138 mmol/L (137-145)
[2023-12-28 05:47] LABS: Vitamin D 25 Hydroxy 17.4 ng/mL
[2023-12-28] MEDS: LEVOTHYROXINE SODIUM INJ 100 MCG/5 ML VIAL 87.5 MCG IV PUSH (07:02)
[2023-12-28 08:18] LABS: Glucose Point of Care 163 mg/dl (65-105)
[2023-12-28] MEDS: FLUTICASONE PROPIONATE 0.05% NA SPR 16 GM BTL (*BKC) 2 SPRAY NASAL (09:20)
[2023-12-28] MEDS: PANTOPRAZOLE SODIUM IV 40 MG VIAL IV PUSH (09:20)
--- NOTE | 2023-12-28 10:00 | PCSTNOTE ---
The patient treatment was not able to be completed on 12/27, 9:00 am, due to patient was sleeping and could not arouse for therapy. Will plan to continue treatment per plan of care.
--- NOTE | 2023-12-28 10:16 | PCPTNOTE ---
Attempted PT eval; pt asleep and would not wake up or arouse to participate in session
--- NOTE | 2023-12-28 10:47 | PM.PNNEP ---
Progress Note: A&P Assessment and Plan (1) End stage renal disease: Code(s): N18.6 - End stage renal disease Status: Acute Assessment and Plan: HD tomorrow continue T/T/S outpatient dialysis schedule follow electrolytes, volume status, and clearance (2) Acute CVA (cerebrovascular accident): Code(s): I63.9 - Cerebral infarction, unspecified Status: Acute Assessment and Plan: as noted by symptoms overnight and earlier this AM confirmed by MRI today CTA of head and neck reviewed Neurology recommendations noted (3) Acute respiratory failure: Code(s): J96.00 - Acute respiratory failure, unspecified whether with hypoxia or hypercapnia Status: Acute Assessment and Plan: resolved multifactorial: COPD exacerbation mild fluid overload/CHF reactive airway disease/asthma fluid removal with dialysis supplemental oxygen - weaned off nebulizer treatments and steroids follow respiratory status (4) Acute hyperkalemia: Code(s): E87.5 - Hyperkalemia Status: Resolved Assessment and Plan: due to missed treatment on Sunday s/p medical management in ER dialysis has corrected this issue follow repeat levels (5) UTI (urinary tract infection): Code(s): N39.0 - Urinary tract infection, site not specified Status: Acute Assessment and Plan: admission UA highly suggestive follow culture data - urine culture with E.coli on antibiotics (6) COPD (chronic obstructive pulmonary disease): Qualifiers: COPD type: unspecified COPD Qualified Code(s): J44.9 - Chronic obstructive pulmonary disease, unspecified Code(s): J44.9 - Chronic obstructive pulmonary disease, unspecified Status: Acute Assessment and Plan: continue nebulizer treatments, steroids, and oxygen follow respiratory status see #3 (7) Fluid overload: Code(s): E87.70 - Fluid overload, unspecified Status: Acute Assessment and Plan: known to have large fluid gains in between dialysis treatments CXR with mild interstitial edema on admission continue HD for electrolyte control and fluid removal follow volume status (8) Hypertension: Code(s): I10 - Essential (primary) hypertension Status: Chronic Assessment and Plan: reasonable control at this time follow trend of hemodynamics (9) Type 2 diabetes mellitus with hyperglycemia: Qualifiers: Diabetes mellitus mcc insulin use: with terminologist use Qualified Code(s): E11.65 - Type 2 diabetes mellitus with hyperglycemia; Z79.4 - long term care social worker (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 Subjective Date/time seen: 12/28/23 10:47 Interval history: Follow-up for end stage renal disease on hemodialysis. Tolerated dialysis treatment yesterday but treatment ended about 6 minutes early as patient inadvertently dislodged one of her dialysis access needles; still with aphasia and can be uncooperative at times per nursing; no apparent distress noted; no acute issues/events overnight or earlier this AM. Exam Narrative: General: elderly but WD/WN female in NAD Heart: normal S1 and S2; no rub Lungs: clear anteriorly; decreased at bases Abdomen: soft, nontender, nondistended, positive bowel sounds Extremities: no cyanosis or clubbing; no edema Skin: no nodules Objective Data Vital Signs Vital Signs: Vital Signs Temp Pulse Resp BP Pulse Ox O2 Del Method 12/28/23 10:00 61 12/28/23 08:00 59 L 16 95 Room Air 12/28/23 07:41 98.4 F 64 16 124/75 99 12/28/23 06:00 63 12/28/23 04:00 98.2 F 60 15 132/80 94 CPAP 12/28/23 04:00 60 12/28/23 03:00 64 15 94 Room Air 12/27/23 21
--- NOTE | 2023-12-28 10:47 | P.PNNP_ITS ---
Progress Note: A&P Assessment and Plan (1) End stage renal disease: Code(s): N18.6 - End stage renal disease Status: Acute Assessment and Plan: * HD tomorrow * continue T/T/S outpatient dialysis schedule * follow electrolytes, volume status, and clearance (2) Acute CVA (cerebrovascular accident): Code(s): I63.9 - Cerebral infarction, unspecified Status: Acute Assessment and Plan: * as noted by symptoms overnight and earlier this AM * confirmed by MRI today * CTA of head and neck reviewed * Neurology recommendations noted (3) Acute respiratory failure: Code(s): J96.00 - Acute respiratory failure, unspecified whether with hypoxia or hypercapnia Status: Acute Assessment and Plan: * resolved * multifactorial: * COPD exacerbation * mild fluid overload/CHF * reactive airway disease/asthma * fluid removal with dialysis * supplemental oxygen - weaned off * nebulizer treatments and steroids * follow respiratory status (4) Acute hyperkalemia: Code(s): E87.5 - Hyperkalemia Status: Resolved Assessment and Plan: * due to missed treatment on Sunday * s/p medical management in ER * dialysis has corrected this issue * follow repeat levels (5) UTI (urinary tract infection): Code(s): N39.0 - Urinary tract infection, site not specified Status: Acute Assessment and Plan: * admission UA highly suggestive * follow culture data - urine culture with E.coli * on antibiotics (6) COPD (chronic obstructive pulmonary disease): Qualifiers: COPD type: unspecified COPD Qualified Code(s): J44.9 - Chronic obstructive pulmonary disease, unspecified Code(s): J44.9 - Chronic obstructive pulmonary disease, unspecified Status: Acute Assessment and Plan: * continue nebulizer treatments, steroids, and oxygen * follow respiratory status * see #3 (7) Fluid overload: Code(s): E87.70 - Fluid overload, unspecified Status: Acute Assessment and Plan: * known to have large fluid gains in between dialysis treatments * CXR with mild interstitial edema on admission * continue HD for electrolyte control and fluid removal * follow volume status (8) Hypertension: Code(s): I10 - Essential (primary) hypertension Status: Chronic Assessment and Plan: * reasonable control at this time * follow trend of hemodynamics (9) Type 2 diabetes mellitus with hyperglycemia: Qualifiers: Diabetes mellitus extermination supervisor insulin use: with extermination supervisor use Qualified Code(s): E11.65 - Type 2 diabetes mellitus with hyperglycemia; Z79.4 - shelter (current) use of insulin Code(s): E11.65 - Type 2 diabetes mellitus with hyperglycemia Status: Chronic Assessment and Plan: * follow accu-cheks * glycemic control per hospitalists Will continue to follow. Subjective Date/time seen: 12/28/23 10:47 Interval history: Follow-up for end stage renal disease on hemodialysis. Tolerated dialysis treatment yesterday but treatment ended about 6 minutes early as patient inadvertently dislodged one of her dialysis access needles; still with aphasia and can be uncooperative at times per nursing; no apparent distress noted; no acute issues/events overnight or earlier this AM. Exam Narrative: General: elderly but WD/WN female in NAD Heart: normal S1 and S2; no rub Lungs: clear anteriorly; decreased at
[2023-12-28 11:59] LABS: Glucose Point of Care 152 mg/dl (65-105)
--- NOTE | 2023-12-28 12:43 | PCSTNOTE ---
The patient treatment was not able to be completed on 12/28/23, 12:30 pm, due to too drowzy to arouse and word with therapist; present and attempted, and FENCE RIDER also attempted to awaken. Will plan to continue treatment per plan of care. Dr. Macedo reported he had been in the room earlier, and patient was awake and following directions for him. PT reported she would not arouse for them around 10:00 am.
[2023-12-28 13:38] LABS: Basophils Absolute Auto 0.1 K/mm3 (0.0-0.1); Basophils Percent Auto 1.1 % (0.2-1.2); Eosinophils Absolute Auto 0.5 K/mm3 (0-0.3); Eosinophils Percent Auto 7.1 % (0-4.4); Hematocrit 32.2 % (37.0-47.0); Hemoglobin 10.4 g/dL (12.0-15.0); Immature Granulocyte Absolute 0.06 K/mm3 (0.00-0.031); Immature Granulocyte Percent A 0.8 % (0-0.5); Lymphocytes Absolute Auto 1.52 K/mm3 (0.9-3.2); Lymphocytes Percent Auto 20.4 % (18.3-44.2); Mean Corpuscular HGB Conc 32.3 g/dl (32-36); Mean Corpuscular Hemoglobin 32.6 pg (26-34); Mean Corpuscular Volume 100.9 fl (80-100); Mean Platelet Volume 10.4 fl (7.4-10.4); Monocytes Percent Auto 12.9 % (2.6-8.5); Neutrophils Absolute Auto 4.3 K/mm3 (1.3-6.7); Neutrophils Percent Auto 57.7 % (45.5-73.1); Platelet Count Result 265 k/mm3 (150-375); Red Blood Count 3.19 M/mm3 (4.2-5.4); Red Cell Distribution Width 13.4 % (11.5-14.5); White Blood Count 7.5 K/mm3 (4.5-10.0)
[2023-12-28 13:49] LABS: INR 1.2; Partial Thromboplastin Time 31.5 Seconds (22.3-36.8); Prothrombin Time 15.1 Seconds (11.1-14.7)
--- NOTE | 2023-12-28 13:57 | PCOTNOTE ---
Attempted to see pt. for occupational therapy evaluation. Pt. sleeping and unable to be aroused. Spouse and sitter present. Nursing aware.
[2023-12-28] MEDS: HEPARIN SOD/D5W 100 UNITS/ML 25,000 UNITS/250 ML BAG 9 UNITS IV CONT (14:05)
--- NOTE | 2023-12-28 14:48 | PCCARD ---
Addendum entered by Georgie German RDCS 12/28/23 15:20: DIFFERENT SONOGRAPHERS ATTEMPTED. WE WILL TRY AGAIN TODAY TO GET THE STUDY DONE. Original Note: TRIED TO DO THE ECHOCARDIOGRAM 3 TIMES - TWICE YESTERDAY(12/26) AND ONCE SO FAR TODAY (12/27). PATIENT IS UNPREDICTABLY COMBATIVE/UNCOOPERATIVE. LEFT A MESSAGE WITH HOSPITALIST TO CONTACT THE DEPARTMENT WITH FURTHER INSTRUSTIONS.
--- NOTE | 2023-12-28 15:51 | PM.IMPN ---
Progress Note: A&P Assessment and Plan (1) Hyperkalemia: Code(s): E87.5 - Hyperkalemia Status: Acute (2) Diabetes mellitus with hyperglycemia: Code(s): E11.65 - Type 2 diabetes mellitus with hyperglycemia Status: Acute (3) Hypoxia: Code(s): R09.02 - Hypoxemia Status: Acute (4) Pseudohyponatremia: Code(s): R79.89 - Other specified abnormal findings of blood chemistry Status: Acute (5) UTI symptoms: Code(s): R39.9 - Unspecified symptoms and signs involving the genitourinary system Status: Acute (6) Leukocytosis: Code(s): D72.829 - Elevated white blood cell count, unspecified Status: Acute (7) Acute on chronic heart failure: Code(s): I50.9 - Heart failure, unspecified Status: Acute (8) Aphasia: Code(s): R47.01 - Aphasia Status: Acute Plan 72-year-old female with a history of type 2 diabetes mellitus with long-term use of insulin, hypertension, hyperlipidemia, ESRD on dialysis Sunday, CAD, diastolic CHF, atrial fibrillation on apixaban, restless leg syndrome, hypothyroidism, depression and anxiety, RAINA, peripheral neuropathy, history of cerebellar CVA remote presented with imbalance, GERD with Gongora's, history of esophageal stricture, COPD, peripheral neuropathy, history of DVT. She present to the ER for shortness of breath and generalized weakness. In the ER patient appeared weak on presentation. Her potassium was high at 7 received calcium gluconate and high-dose albuterol therapy. Dextrose and insulin. Laboratory evaluation showed WBC count 10.2. Urinalysis shows positive leukocyte esterase greater than 100 WBCs cells. No Bacteria. History has been inconsistent history. Unfortunately she is a poor historian The patient herself reports she missed Lasix, other family member has reported she missed dialysis. Hyperglycemia noted with blood sugar up to 572 on arrival to the ED. patient was also wheezy on presentation. She was started on ceftriaxone for UTI. She was admitted for further treatment Sometime in the evening of 12/[address] head was performed which demonstrated or infarct in the left cerebellum and bilateral basal ganglia. She was out of the window for tPA. CT could not be done due to end-stage renal disease. She was already on apixaban as well. Neurology was consulted. MRI brain was performed on 12/26/2023 which documented acute infarct in the left hippocampus left posterior frontal lobe with no hemorrhage. Aspirin Plavix added. Echo ordered which has done yet to uncooperativeness. Eventually CTA was done 12/27/2023 which revealed complete occlusion of left M2 segment. Carotid Doppler with less than 50% stenosis in VEE and LICA. With her stroke she is having aphasia as well as right-sided weakness dysphagia. Speech therapy PT OT on board Since NPO Will switch her to aspirin rectally. Discussed anticoagulation with Neurology and suggested heparin drip as she is not able to take apixaban currently. there is risk of bleeding and this was discussed with her daughter Gwen over the phone. End-stage renal disease on Sunday nephrology on board History of atrial fibrillation sinus rhythm on amiodarone and apixaban at home along with metoprolol. Hyperkalemia on presentation treated up the. Continue to monitor Type 2 diabetes mellitus with hyperglycemia on presentation COPD exacerbation with diffuse wheezing on presentation. DuoNebs Hyponatremia UTI on ceftriaxone Anemia chronic Congestive heart failure dizzy edema on x-ray noted on presentation. Full code. Continue MANAGER OF TRAINING Protonix Continue MANAGER OF TRAINING Eliquis Fall precautions NPO, pending barium swallow Neurology to meet with family. Subjective Date/time seen: 12/28/23 15:51 Interval history: Intermittently uncooperative. Aphasia still present. Moving all extremities. Discussed with Gwen daughter over the phone.
[2023-12-28] MEDS: PERFLUTREN LIPID MICROSPHERES 1.5 ML VIAL DILUTED TO 10 ML TOTAL VOLUME IV PUSH (16:00)
--- NOTE | 2023-12-28 16:43 | IVDEFINITY ---
Prior to administration of IV Definity the patient was educated on the risks and benefits of the imaging enhancing agent including potential adverse side effects. The patient verbalized understanding. Allergies were verified. No exclusion criteria were identified and at least one of the following inclusion criteria were met: 1) physician request, 2) patient technically difficult to image (per the [place] [employer] guidelines of two or more segments not discernable within the apical view), or 3) questionable left ventricular function. ?
[2023-12-28 17:55] LABS: Glucose Point of Care 157 mg/dl (65-105)
[2023-12-28 20:05] LABS: Glucose Point of Care 182 mg/dl (65-105)
[2023-12-28] MEDS: FLUTICASONE/SALMETEROL 230-21 MCG INHALER 1 PUFF 2 PUFF INHALATION (20:28)
[2023-12-28 20:35] LABS: Partial Thromboplastin Time 41.6 Seconds (22.3-36.8)
[2023-12-28] MEDS: HEPARIN SODIUM 5,000 UNITS/ML VIAL 4000 UNITS IV PUSH (21:00)
[2023-12-29] VITALS (29 sets, daily range): BP systolic 105–204; BP diastolic 43–78; PULSE 53–87; RESP 15–20; TEMP 36.3–37.8; O2SAT 93–100
[2023-12-29] LABS: Glucose Point of Care 184 mg/dl (65-105)
[2023-12-29 03:59] LABS: Glucose Point of Care 180 mg/dl (65-105)
[2023-12-29 04:09] LABS: Basophils Absolute Auto 0.1 K/mm3 (0.0-0.1); Basophils Percent Auto 1.2 % (0.2-1.2); Eosinophils Absolute Auto 0.6 K/mm3 (0-0.3); Eosinophils Percent Auto 6.9 % (0-4.4); Hematocrit 34.2 % (37.0-47.0); Hemoglobin 10.7 g/dL (12.0-15.0); Immature Granulocyte Absolute 0.05 K/mm3 (0.00-0.031); Immature Granulocyte Percent A 0.6 % (0-0.5); Lymphocytes Absolute Auto 2.04 K/mm3 (0.9-3.2); Lymphocytes Percent Auto 25.2 % (18.3-44.2); Mean Corpuscular HGB Conc 31.3 g/dl (32-36); Mean Corpuscular Volume 102.4 fl (80-100); Mean Platelet Volume 10.2 fl (7.4-10.4); Monocytes Absolute Auto 0.8 K/mm3 (0.1-0.6); Monocytes Percent Auto 9.5 % (2.6-8.5); Neutrophils Absolute Auto 4.6 K/mm3 (1.3-6.7); Neutrophils Percent Auto 56.6 % (45.5-73.1); Platelet Count Result 271 k/mm3 (150-375); Red Blood Count 3.34 M/mm3 (4.2-5.4); Red Cell Distribution Width 13.3 % (11.5-14.5); White Blood Count 8.1 K/mm3 (4.5-10.0)
[2023-12-29 04:13] LABS: Alanine Aminotransferase 17 U/L (6-35); Albumin Level 3.9 g/dL (3.5-5.1); Alkaline Phosphatase 82 U/L (38-126); Anion Gap 17 mmol/L (4-12); Aspartate Amino Transferase 25 U/L (14-36); Bilirubin,Total 0.5 mg/dL (0.2-1.3); Blood Urea Nitrogen 50 mg/dL (7-17); Calcium 8.5 mg/dL (8.4-10.2); Carbon Dioxide 23 mmol/L (22-30); Chloride 99 mmol/L (98-107); Estimated CRCL calculation 7 ml/min; Estimated Glomerular Filt Rate 5; Glucose 173 mg/dL (65-110); Magnesium 2.1 mg/dL (1.6-2.3); Potassium 4.8 mmol/L (3.4-5.0); Sodium 139 mmol/L (137-145)
[2023-12-29 04:28] LABS: Partial Thromboplastin Time 104.8 Seconds (22.3-36.8)
[2023-12-29] MEDS: LEVOTHYROXINE SODIUM INJ 100 MCG/5 ML VIAL 87.5 MCG IV PUSH (05:50)
[2023-12-29] MEDS: UMECLIDINIUM BROMIDE 62.5 MCG ELLIPTA 1 PUFF INHALATION (08:19)
[2023-12-29] MEDS: FLUTICASONE/SALMETEROL 230-21 MCG INHALER 1 PUFF 2 PUFF INHALATION (08:19)
--- NOTE | 2023-12-29 08:43 | PCOTNOTE ---
Attempted OT eval. Patient in dialysis. Will continue to attempt.
--- NOTE | 2023-12-29 09:34 | PM.PNNEP ---
Progress Note: A&P Assessment and Plan (1) End stage renal disease: Code(s): N18.6 - End stage renal disease Status: Acute Assessment and Plan: HD today continue T/T/S outpatient dialysis schedule follow electrolytes, volume status, and clearance (2) Acute CVA (cerebrovascular accident): Code(s): I63.9 - Cerebral infarction, unspecified Status: Acute Assessment and Plan: as noted by symptoms on evening of 12/24 and morning of 12/25 confirmed by MRI of brain CTA of head and neck reviewed Neurology recommendations noted on heparin gtt (3) Acute respiratory failure: Code(s): J96.00 - Acute respiratory failure, unspecified whether with hypoxia or hypercapnia Status: Resolved Assessment and Plan: resolved multifactorial: COPD exacerbation mild fluid overload/CHF reactive airway disease/asthma fluid removal with dialysis supplemental oxygen - weaned off nebulizer treatments and steroids follow respiratory status (4) Acute hyperkalemia: Code(s): E87.5 - Hyperkalemia Status: Resolved Assessment and Plan: due to missed treatment on Sunday s/p medical management in ER dialysis has corrected this issue follow repeat levels (5) UTI (urinary tract infection): Code(s): N39.0 - Urinary tract infection, site not specified Status: Acute Assessment and Plan: admission UA highly suggestive follow culture data - urine culture with E.coli on antibiotics (6) COPD (chronic obstructive pulmonary disease): Qualifiers: COPD type: unspecified COPD Qualified Code(s): J44.9 - Chronic obstructive pulmonary disease, unspecified Code(s): J44.9 - Chronic obstructive pulmonary disease, unspecified Status: Acute Assessment and Plan: continue supportive therapy follow respiratory status see #3 (7) Fluid overload: Code(s): E87.70 - Fluid overload, unspecified Status: Acute Assessment and Plan: known to have large fluid gains in between dialysis treatments CXR with mild interstitial edema on admission continue HD for electrolyte control and fluid removal follow volume status (8) Hypertension: Code(s): I10 - Essential (primary) hypertension Status: Chronic Assessment and Plan: reasonable control at this time follow trend of hemodynamics (9) Type 2 diabetes mellitus with hyperglycemia: Qualifiers: Diabetes mellitus long term care phlebotomist insulin use: with senior living use Qualified Code(s): E11.65 - Type 2 diabetes mellitus with hyperglycemia; Z79.4 - shelter (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 Subjective Date/time seen: 12/29/23 09:34 Interval history: Follow-up for end stage renal disease on hemodialysis. Tolerating dialysis treatment at the time of my visit (seen on HD at 9:20AM);l no apparent distress noted currently; per nursing, uncooperative yesterday afternoon during Echo; no other acute issues/events overnight or earlier this morning; on heparin gtt for anticoagulation. Exam Narrative: General: elderly but WD/WN female in NAD Heart: normal S1 and S2; no rub Lungs: clear anteriorly; decreased at bases Abdomen: soft, nontender, nondistended, positive bowel sounds Extremities: no cyanosis or clubbing; no edema Skin: warm and intact Objective Data Vital Signs Vital Signs: Vital Signs Temp Pulse Resp BP Pulse Ox O2 Del Method O2 Flow Rate 12/29/23 09:30 73 133/67 12/29/23 09:15 63 156/64 H 12/29/23 09:00 64 158/62 H 12/29/23 08:25 99.7 F H 53 L 19 156/50 H 97 12/29/23 08:40 55 L 105/56 L 12/29/23 08:22 93 Room Air 12/29/23 05:47 58 L
--- NOTE | 2023-12-29 09:34 | P.PNNP_ITS ---
Progress Note: A&P Assessment and Plan (1) End stage renal disease: Code(s): N18.6 - End stage renal disease Status: Acute Assessment and Plan: * HD today * continue T/T/S outpatient dialysis schedule * follow electrolytes, volume status, and clearance (2) Acute CVA (cerebrovascular accident): Code(s): I63.9 - Cerebral infarction, unspecified Status: Acute Assessment and Plan: * as noted by symptoms on evening of 12/24 and morning of 12/25 * confirmed by MRI of brain * CTA of head and neck reviewed * Neurology recommendations noted * on heparin gtt (3) Acute respiratory failure: Code(s): J96.00 - Acute respiratory failure, unspecified whether with hypoxia or hypercapnia Status: Resolved Assessment and Plan: * resolved * multifactorial: * COPD exacerbation * mild fluid overload/CHF * reactive airway disease/asthma * fluid removal with dialysis * supplemental oxygen - weaned off * nebulizer treatments and steroids * follow respiratory status (4) Acute hyperkalemia: Code(s): E87.5 - Hyperkalemia Status: Resolved Assessment and Plan: * due to missed treatment on Sunday * s/p medical management in ER * dialysis has corrected this issue * follow repeat levels (5) UTI (urinary tract infection): Code(s): N39.0 - Urinary tract infection, site not specified Status: Acute Assessment and Plan: * admission UA highly suggestive * follow culture data - urine culture with E.coli * on antibiotics (6) COPD (chronic obstructive pulmonary disease): Qualifiers: COPD type: unspecified COPD Qualified Code(s): J44.9 - Chronic obstructive pulmonary disease, unspecified Code(s): J44.9 - Chronic obstructive pulmonary disease, unspecified Status: Acute Assessment and Plan: * continue supportive therapy * follow respiratory status * see #3 (7) Fluid overload: Code(s): E87.70 - Fluid overload, unspecified Status: Acute Assessment and Plan: * known to have large fluid gains in between dialysis treatments * CXR with mild interstitial edema on admission * continue HD for electrolyte control and fluid removal * follow volume status (8) Hypertension: Code(s): I10 - Essential (primary) hypertension Status: Chronic Assessment and Plan: * reasonable control at this time * follow trend of hemodynamics (9) Type 2 diabetes mellitus with hyperglycemia: Qualifiers: Diabetes mellitus senior care insulin use: with senior care use Qualified Code(s): E11.65 - Type 2 diabetes mellitus with hyperglycemia; Z79.4 - rat exterminator (current) use of insulin Code(s): E11.65 - Type 2 diabetes mellitus with hyperglycemia Status: Chronic Assessment and Plan: * follow accu-cheks * glycemic control per hospitalists Will continue to follow. Subjective Date/time seen: 12/29/23 09:34 Interval history: Follow-up for end stage renal disease on hemodialysis. Tolerating dialysis treatment at the time of my visit (seen on HD at 9:20AM);l no apparent distress noted currently; per nursing, uncooperative yesterday afternoon during Echo; no other acute issues/events overnight or earlier this morning; on heparin gtt for anticoagulation. Exam Narrative: General: elderly but WD/WN female in NAD Heart: normal S1 and S2; no rub Lungs: clear anteriorly; decreased at bases
[2023-12-29 10:17] LABS: Partial Thromboplastin Time 89.2 Seconds (22.3-36.8)
--- NOTE | 2023-12-29 10:23 | PM.IMPN ---
Progress Note: A&P Assessment and Plan (1) Hyperkalemia: Code(s): E87.5 - Hyperkalemia Status: Acute (2) Diabetes mellitus with hyperglycemia: Code(s): E11.65 - Type 2 diabetes mellitus with hyperglycemia Status: Acute (3) Hypoxia: Code(s): R09.02 - Hypoxemia Status: Acute (4) Pseudohyponatremia: Code(s): R79.89 - Other specified abnormal findings of blood chemistry Status: Acute (5) UTI symptoms: Code(s): R39.9 - Unspecified symptoms and signs involving the genitourinary system Status: Acute (6) Leukocytosis: Code(s): D72.829 - Elevated white blood cell count, unspecified Status: Acute (7) Acute on chronic heart failure: Code(s): I50.9 - Heart failure, unspecified Status: Acute (8) Aphasia: Code(s): R47.01 - Aphasia Status: Acute Plan 72-year-old female with a history of type 2 diabetes mellitus with long-term use of insulin, hypertension, hyperlipidemia, ESRD on dialysis Sunday, CAD, diastolic CHF, atrial fibrillation on apixaban, restless leg syndrome, hypothyroidism, depression and anxiety, RAINA, peripheral neuropathy, history of cerebellar CVA remote presented with imbalance, GERD with Gongora's, history of esophageal stricture, COPD, peripheral neuropathy, history of DVT. She present to the ER for shortness of breath and generalized weakness. In the ER patient appeared weak on presentation. Her potassium was high at 7 received calcium gluconate and high-dose albuterol therapy. Dextrose and insulin. Laboratory evaluation showed WBC count 10.2. Urinalysis shows positive leukocyte esterase greater than 100 WBCs cells. No Bacteria. History has been inconsistent history. Unfortunately she is a poor historian The patient herself reports she missed Lasix, other family member has reported she missed dialysis. Hyperglycemia noted with blood sugar up to 572 on arrival to the ED. patient was also wheezy on presentation. She was started on ceftriaxone for UTI. She was admitted for further treatment Sometime in the evening of 12/[address] head was performed which demonstrated or infarct in the left cerebellum and bilateral basal ganglia. She was out of the window for tPA. CT could not be done due to end-stage renal disease. She was already on apixaban as well. Neurology was consulted. MRI brain was performed on 12/26/2023 which documented acute infarct in the left hippocampus left posterior frontal lobe with no hemorrhage. Aspirin Plavix added. Echo ordered which has done yet to uncooperativeness. Eventually CTA was done 12/27/2023 which revealed complete occlusion of left M2 segment. Carotid Doppler with less than 50% stenosis in VEE and LICA. With her stroke she is having aphasia as well as right-sided weakness dysphagia. Speech therapy PT OT on board. Since NPO Will switch her to aspirin rectally. Discussed anticoagulation with Neurology and suggested heparin drip as she is not able to take apixaban currently. there is risk of bleeding and this was discussed with her daughter Gwen over the phone. Remains on low-dose heparin drip. Per protocol. Her mental status waxes and wanes likely due to stroke. CT head repeated again today to ensure no bleeding which came back negative. If continues eventually will need PEG tube placement. End-stage renal disease on Sunday nephrology on board History of atrial fibrillation sinus rhythm on amiodarone and apixaban at home along with metoprolol. Hyperkalemia on presentation treated up the. Continue to monitor Type 2 diabetes mellitus with hyperglycemia on presentation COPD exacerbation with diffuse wheezing on presentation. DuoNebs. Chest x-ray stable Hyponatremia UTI on ceftriaxone Anemia chronic Congestive heart failure dizzy edema on x-ray noted on presentation. Full code. Continue VEGETABLE WORKER Protonix Continue VEGETABLE WORKER Eliquis Fall precautions
--- NOTE | 2023-12-29 11:42 | PCSTNOTE ---
The patient treatment was not able to be completed on 12/29/23, 10:15 am, in dialysis treatment room due to too drowzy to arouse with therapist. Nurse was notified of attempt. Will plan to continue treatment per plan of care.
--- NOTE | 2023-12-29 11:53 | PCSTNOTE ---
The patient treatment was not able to be completed on 12/29/23, 11:45 am, due to too drowzy to arouse and work with therapist.
[2023-12-29 13:18] LABS: Alveolar/Arterial O2 Gradient 40.8 mmHg; Base Excess ABG 0.6 mEq/l (+/-2.0); Fractional Inspired Oxygen 21 %; HCO3 ABG 23.9 mEq/l (22.0-26.0); Oxygen Saturation ABG 94.9 % (95.0-100.0); Oxyhemoglobin 93.6 % THb (90.0-100.0); PCO2 ABG 33.7 mmHg (35.0-45.0); PO2 ABG 68.6 mmHg (80.0-100.0); PO2 FiO2 Ratio Arterial Blood 3.27 %; Total Hemoglobin 12.1 g/dL (12.0-18.0); pH ABG 7.468 (7.350-7.450)
[2023-12-29 13:19] LABS: Device ROOM AIR; Site Drawn RIGHT BRACHIAL
--- NOTE | 2023-12-29 13:25 | PCOTNOTE ---
Attempted OT eval. Patient not on floor, down for CT. Will continue to attempt.
[2023-12-29] MEDS: HEPARIN SOD/D5W 100 UNITS/ML 25,000 UNITS/250 ML BAG 12 UNITS IV CONT (15:25)
--- NOTE | 2023-12-29 16:49 | WPDNEUROPN ---
Progress Note: A&P Assessment and Plan (1) Left sided cerebral hemisphere cerebrovascular accident: Code(s): I63.9 - Cerebral infarction, unspecified Status: Acute (2) Atrial fibrillation: Code(s): I48.91 - Unspecified atrial fibrillation Status: Chronic (3) Chronic renal failure: Code(s): N18.9 - Chronic kidney disease, unspecified Status: Acute Plan The patient has progressed in terms of stroke and now she has weakness in the right side of the body. She may also be avoiding the visual field on the right side and not moving her right arm and right leg as much as the left side. She is also somewhat more lethargic. these findings suggestive of extension of the stroke. The patient has been on the anticoagulation but because he is noted by mouth she is being given heparin. Her vital signs and temperature has been stable. we need to continue to follow her up with regard to supportive care and vital signs. I had previously indicated that the stroke symptoms can worsen the 1st week particularly in the left 1st 5 2-5 days for variety of reasons. Unfortunately given the situation and intervention is unlikely to be of any help. She has a complete occlusion of the left middle cerebral artery and in this situation we very much depends upon the collateral. We need to avoid hypotension or hypoxemia or any intercurrent infection or hypoglycemia or any medical of metabolic factors that can worsen her condition. I spoke to the hospitalist yesterday and also today and with the nursing staff and will get continued to discuss the family members. Subjective Date/time seen: 12/29/23 16:49 Interval history: The patient is 73-year-old with history of chronic kidney disease on hemodialysis and left CVA with aphasia seen for follow-up since he has worsened since I saw her 2 days ago. She seems to be more lethargic. She has not had any fevers chills or any seizure-like spell. She has not indicated any pain however should be noted that she is aphasic and His the communication is difficult. Review of Systems Review of Systems: ROS unobtainable: Yes unobtainable due to medical condition Exam Narrative: The patient is globally aphasic. She also appears to somewhat drowsy and lethargic. When I try to wake her up she seems to pay more attention to the left side of the body and did move her left arm and left leg but not so much with the right arm right leg. Her right arm does appear to be weaker compared to the left side. It is difficult to determine the right leg since he is lying on the right side. She also tends to avoid the vision on the right side. No involuntary movements are seen.. Objective Data Vital Signs Vital Signs: Vital Signs - 24 hr 12/28/23 18:00 12/28/23 19:47 12/28/23 20:32 Temperature 97.9 F Pulse Rate 55 L 51 L 55 L Respiratory Rate 16 18 Blood Pressure 153/41 H Pulse Oximetry 100 Oxygen Delivery Oxygen Flow Rate 12/28/23 20:30 12/28/23 23:54 12/28/23 20:00 Temperature 97.9 F Pulse Rate 56 L 58 L 51 L Respiratory Rate 20 16 Blood Pressure 150/46 H Pulse Oximetry 100 100 Oxygen Delivery Nasal Cannula Oxygen Flow Rate 2 12/29/23 00:00 12/28/23 20:00 12/28/23 22:00 Temperature Pulse Rate 58 L 51 L 58 L Respiratory Rate 20 Blood Pressure Pulse Oximetry 100 Oxygen Delivery Nasal Cannula Oxygen Flow Rate 2 12/29/23 00:00 12/29/23 01:47 12/29/23 04:00 Temperature 97.8 F Pulse Rate 60 55 L 57 L Respiratory Rate 18 Blood Pressure 150/49 H Pulse Oximetry 100 Oxygen Delivery Oxygen Flow Rate 12/29/23 04:00 12/29/23 04:00 12/29/23 05:47 Temperature Pulse Rate 57 L 58 L 58 L Respiratory Rate 18 Blood Pressure Pulse Oximetry 100 Oxygen Delivery Nasal Cannula Oxygen Flow Rate 2 12/29/23 08:22 12/29/23 08:40 12/29/23 08:25 Temperature 99.7 F H Pulse Rate 55 L 53 L Respiratory R
[2023-12-29 20:04] LABS: Toxigenic C. Diff NEGATIVE (NEGATIVE)
--- NOTE | 2023-12-29 20:25 | PC.NURSE ---
This patient, Gregoria Rae, was received from [facility] on 12/29/23 at 2024. Report received from BOB Lynch. Patient/family oriented to unit policies and routines.
[2023-12-29] MEDS: ONDANSETRON INJ 4 MG/2 ML VIAL IV PUSH (20:39)
[2023-12-29] MEDS: metroNIDAZOLE 500 MG/ISO 100ML 500 MG/100 ML BAG 100 MG IVPB (21:58)
[2023-12-29 22:20] LABS: Glucose Point of Care 262 mg/dl (65-105)
--- NOTE | 2023-12-29 23:57 | PCRCNOTE ---
Window of time for administration has passed. See next scheduled administration.
[2023-12-30] VITALS (23 sets, daily range): BP systolic 105–150; BP diastolic 34–95; PULSE 63–82; RESP 13–18; TEMP 37.3–37.7; O2SAT 91–100; BMI 10.0
[2023-12-30 00:53] LABS: Glucose Point of Care 249 mg/dl (65-105)
[2023-12-30] MEDS: INSULIN GLARGINE (*BKC) 100 UNITS/ML 14 UNITS SUB-Q ×2 (02:06→21:00)
[2023-12-30] MEDS: IPRATROPIUM 0.5 MG/ALBUTEROL SULFATE 2.5 MG AMPUL.NEB 3 ML INHALATION ×4 (02:23→20:33)
[2023-12-30 03:50] LABS: Basophils Absolute Auto 0.2 K/mm3 (0.0-0.1); Basophils Percent Auto 0.7 % (0.2-1.2); Eosinophils Percent Auto 0.1 % (0-4.4); Hematocrit 40.7 % (37.0-47.0); Hemoglobin 12.8 g/dL (12.0-15.0); Immature Granulocyte Absolute 0.24 K/mm3 (0.00-0.031); Immature Granulocyte Percent A 1.1 % (0-0.5); Lymphocytes Absolute Auto 2.04 K/mm3 (0.9-3.2); Lymphocytes Percent Auto 9.4 % (18.3-44.2); Mean Corpuscular HGB Conc 31.4 g/dl (32-36); Mean Corpuscular Hemoglobin 32.6 pg (26-34); Mean Corpuscular Volume 103.6 fl (80-100); Mean Platelet Volume 10.6 fl (7.4-10.4); Monocytes Absolute Auto 1.8 K/mm3 (0.1-0.6); Monocytes Percent Auto 8.1 % (2.6-8.5); Neutrophils Absolute Auto 17.6 K/mm3 (1.3-6.7); Neutrophils Percent Auto 80.6 % (45.5-73.1); Platelet Count Result 317 k/mm3 (150-375); Red Blood Count 3.93 M/mm3 (4.2-5.4); Red Cell Distribution Width 13.5 % (11.5-14.5); White Blood Count 21.8 K/mm3 (4.5-10.0)
[2023-12-30 04:07] LABS: Alanine Aminotransferase 22 U/L (6-35); Albumin Level 4.6 g/dL (3.5-5.1); Alkaline Phosphatase 88 U/L (38-126); Anion Gap 28 mmol/L (4-12); Aspartate Amino Transferase 34 U/L (14-36); Bilirubin,Total 0.7 mg/dL (0.2-1.3); Blood Urea Nitrogen 37 mg/dL (7-17); Calcium 8.6 mg/dL (8.4-10.2); Carbon Dioxide 15 mmol/L (22-30); Chloride 94 mmol/L (98-107); Estimated CRCL calculation 10 ml/min; Estimated Glomerular Filt Rate 8; Glucose 251 mg/dL (65-110); Magnesium 2.1 mg/dL (1.6-2.3); Potassium 5.1 mmol/L (3.4-5.0); Sodium 137 mmol/L (137-145)
[2023-12-30] MEDS: metroNIDAZOLE 500 MG/ISO 100ML 500 MG/100 ML BAG 100 MG IVPB ×2 (04:26→12:04)
[2023-12-30] MEDS: INSULIN HUMAN REGULAR (*BKC) 100 UNITS/ML SUB-Q ×5 (04:26→21:01)
[2023-12-30 05:54] LABS: Glucose Point of Care 238 mg/dl (65-105)
[2023-12-30] MEDS: LEVOTHYROXINE SODIUM INJ 100 MCG/5 ML VIAL 87.5 MCG IV PUSH (06:33)
[2023-12-30 06:54] LABS: Partial Thromboplastin Time 74.7 Seconds (22.3-36.8)
[2023-12-30 08:04] LABS: Glucose Point of Care 206 mg/dl (65-105)
[2023-12-30] MEDS: ASPIRIN 300 MG SUPPOSITORY RECTAL (09:00)
[2023-12-30] MEDS: MONTELUKAST SODIUM 10 MG TABLET PO (09:00)
[2023-12-30] MEDS: FLUTICASONE PROPIONATE 0.05% NA SPR 16 GM BTL (*BKC) 2 SPRAY NASAL (09:57)
[2023-12-30] MEDS: PANTOPRAZOLE SODIUM IV 40 MG VIAL IV PUSH (09:57)
--- NOTE | 2023-12-30 11:38 | PCSTNOTE ---
BEAMER OPERATOR attempted to see pt on 12/29 at 11:30; however, pt could/would not arouse for therapy despite MAX engagement from BEAMER OPERATOR.
[2023-12-30 11:57] LABS: Glucose Point of Care 267 mg/dl (65-105)
--- NOTE | 2023-12-30 12:02 | PM.IMPN ---
Progress Note: A&P Assessment and Plan (1) Hyperkalemia: Code(s): E87.5 - Hyperkalemia Status: Acute (2) Diabetes mellitus with hyperglycemia: Code(s): E11.65 - Type 2 diabetes mellitus with hyperglycemia Status: Acute (3) Hypoxia: Code(s): R09.02 - Hypoxemia Status: Acute (4) Pseudohyponatremia: Code(s): R79.89 - Other specified abnormal findings of blood chemistry Status: Acute (5) UTI symptoms: Code(s): R39.9 - Unspecified symptoms and signs involving the genitourinary system Status: Acute (6) Leukocytosis: Code(s): D72.829 - Elevated white blood cell count, unspecified Status: Acute (7) Acute on chronic heart failure: Code(s): I50.9 - Heart failure, unspecified Status: Acute (8) Aphasia: Code(s): R47.01 - Aphasia Status: Acute Plan 72-year-old female with a history of type 2 diabetes mellitus with long-term use of insulin, hypertension, hyperlipidemia, ESRD on dialysis Sunday, CAD, diastolic CHF, atrial fibrillation on apixaban, restless leg syndrome, hypothyroidism, depression and anxiety, RAINA, peripheral neuropathy, history of cerebellar CVA remote presented with imbalance, GERD with Gongora's, history of esophageal stricture, COPD, peripheral neuropathy, history of DVT. She present to the ER for shortness of breath and generalized weakness. In the ER patient appeared weak on presentation. Her potassium was high at 7 received calcium gluconate and high-dose albuterol therapy. Dextrose and insulin. Laboratory evaluation showed WBC count 10.2. Urinalysis shows positive leukocyte esterase greater than 100 WBCs cells. No Bacteria. History has been inconsistent history. Unfortunately she is a poor historian The patient herself reports she missed Lasix, other family member has reported she missed dialysis. Hyperglycemia noted with blood sugar up to 572 on arrival to the ED. patient was also wheezy on presentation. She was started on ceftriaxone for UTI. She was admitted for further treatment Sometime in the evening of 12/[address] head was performed which demonstrated or infarct in the left cerebellum and bilateral basal ganglia. She was out of the window for tPA. CT could not be done due to end-stage renal disease. She was already on apixaban as well. Neurology was consulted. MRI brain was performed on 12/26/2023 which documented acute infarct in the left hippocampus left posterior frontal lobe with no hemorrhage. Aspirin Plavix added. Echo ordered which has done yet to uncooperativeness. Eventually CTA was done 12/27/2023 which revealed complete occlusion of left M2 segment. Carotid Doppler with less than 50% stenosis in VEE and LICA. With her stroke she is having aphasia as well as right-sided weakness dysphagia. Speech therapy PT OT on board. Since NPO Will switch her to aspirin rectally. Discussed anticoagulation with Neurology and suggested heparin drip as she is not able to take apixaban currently. there is risk of bleeding and this was discussed with her daughter Gwen over the phone. Remains on low-dose heparin drip. Per protocol. Her mental status waxes and wanes likely due to stroke. CT head repeated again today to ensure no bleeding which came back negative. If continues eventually will need PEG tube placement. NG tube in place and will start trickle feeds today. Possible aspiration chest x-ray. Switch antibiotic to Zosyn IV End-stage renal disease on Sunday nephrology on board History of atrial fibrillation sinus rhythm on amiodarone and apixaban at home along with metoprolol. Hyperkalemia on presentation treated up the. Continue to monitor Type 2 diabetes mellitus with hyperglycemia on presentation COPD exacerbation with diffuse wheezing on presentation. DuoNeb. Chest x-ray stable Hyponatremia UTI on ceftriaxone Anemia chronic Congestive heart failur
[2023-12-30] MEDS: CALCIUM ACETATE 667 MG TABLET PO (12:03)
--- NOTE | 2023-12-30 12:20 | P.PNNP_ITS ---
Progress Note: A&P Assessment and Plan (1) End stage renal disease: Code(s): N18.6 - End stage renal disease Status: Acute Assessment and Plan: * HD yesterday * continue T/T/S outpatient dialysis schedule * follow electrolytes, volume status, and clearance (2) Acute CVA (cerebrovascular accident): Code(s): I63.9 - Cerebral infarction, unspecified Status: Acute Assessment and Plan: * as noted by symptoms on evening of 12/24 and morning of 12/25 * confirmed by MRI of brain * CTA of head and neck reviewed * Neurology recommendations noted * on heparin gtt (3) Acute respiratory failure: Code(s): J96.00 - Acute respiratory failure, unspecified whether with hypoxia or hypercapnia Status: Resolved Assessment and Plan: * resolved * multifactorial: * COPD exacerbation * mild fluid overload/CHF * reactive airway disease/asthma * fluid removal with dialysis * supplemental oxygen - weaned off * nebulizer treatments and steroids * follow respiratory status (4) Acute hyperkalemia: Code(s): E87.5 - Hyperkalemia Status: Resolved Assessment and Plan: * due to missed treatment on Sunday * s/p medical management in ER * dialysis has corrected this issue * follow repeat levels (5) UTI (urinary tract infection): Code(s): N39.0 - Urinary tract infection, site not specified Status: Acute Assessment and Plan: * admission UA highly suggestive * follow culture data - urine culture with E.coli * on antibiotics (6) COPD (chronic obstructive pulmonary disease): Qualifiers: COPD type: unspecified COPD Qualified Code(s): J44.9 - Chronic obstructive pulmonary disease, unspecified Code(s): J44.9 - Chronic obstructive pulmonary disease, unspecified Status: Acute Assessment and Plan: * continue supportive therapy * follow respiratory status * see #3 (7) Fluid overload: Code(s): E87.70 - Fluid overload, unspecified Status: Acute Assessment and Plan: * known to have large fluid gains in between dialysis treatments * CXR with mild interstitial edema on admission * continue HD for electrolyte control and fluid removal * follow volume status (8) Hypertension: Code(s): I10 - Essential (primary) hypertension Status: Chronic Assessment and Plan: * reasonable control at this time * follow trend of hemodynamics (9) Type 2 diabetes mellitus with hyperglycemia: Qualifiers: Diabetes mellitus patients transporter insulin use: with assisted use Qualified Code(s): E11.65 - Type 2 diabetes mellitus with hyperglycemia; Z79.4 - medical transcription (current) use of insulin Code(s): E11.65 - Type 2 diabetes mellitus with hyperglycemia Status: Chronic Assessment and Plan: * follow accu-cheks * glycemic control per hospitalists Will continue to follow. Subjective Date/time seen: 12/30/23 12:20 Interval history: Follow-up for end stage renal disease on hemodialysis. Tolerated dialysis treatment yesterday without any issues or problems; issues with persistent nausea and vomiting overnight necessitating placement of a NG tube; mentation seems to continue to fluctuate but seems a bit better on my visit; no apparent distress noted. Exam Narrative: General: elderly but WD/WN female in NAD Heart: normal S1 and S2; no rub Lungs: clear anteriorly; decreased at bases Abdo
--- NOTE | 2023-12-30 12:20 | PM.PNNEP ---
Progress Note: A&P Assessment and Plan (1) End stage renal disease: Code(s): N18.6 - End stage renal disease Status: Acute Assessment and Plan: HD yesterday continue T/T/S outpatient dialysis schedule follow electrolytes, volume status, and clearance (2) Acute CVA (cerebrovascular accident): Code(s): I63.9 - Cerebral infarction, unspecified Status: Acute Assessment and Plan: as noted by symptoms on evening of 12/24 and morning of 12/25 confirmed by MRI of brain CTA of head and neck reviewed Neurology recommendations noted on heparin gtt (3) Acute respiratory failure: Code(s): J96.00 - Acute respiratory failure, unspecified whether with hypoxia or hypercapnia Status: Resolved Assessment and Plan: resolved multifactorial: COPD exacerbation mild fluid overload/CHF reactive airway disease/asthma fluid removal with dialysis supplemental oxygen - weaned off nebulizer treatments and steroids follow respiratory status (4) Acute hyperkalemia: Code(s): E87.5 - Hyperkalemia Status: Resolved Assessment and Plan: due to missed treatment on Sunday s/p medical management in ER dialysis has corrected this issue follow repeat levels (5) UTI (urinary tract infection): Code(s): N39.0 - Urinary tract infection, site not specified Status: Acute Assessment and Plan: admission UA highly suggestive follow culture data - urine culture with E.coli on antibiotics (6) COPD (chronic obstructive pulmonary disease): Qualifiers: COPD type: unspecified COPD Qualified Code(s): J44.9 - Chronic obstructive pulmonary disease, unspecified Code(s): J44.9 - Chronic obstructive pulmonary disease, unspecified Status: Acute Assessment and Plan: continue supportive therapy follow respiratory status see #3 (7) Fluid overload: Code(s): E87.70 - Fluid overload, unspecified Status: Acute Assessment and Plan: known to have large fluid gains in between dialysis treatments CXR with mild interstitial edema on admission continue HD for electrolyte control and fluid removal follow volume status (8) Hypertension: Code(s): I10 - Essential (primary) hypertension Status: Chronic Assessment and Plan: reasonable control at this time follow trend of hemodynamics (9) Type 2 diabetes mellitus with hyperglycemia: Qualifiers: Diabetes mellitus snf insulin use: with community cultural development officer use Qualified Code(s): E11.65 - Type 2 diabetes mellitus with hyperglycemia; Z79.4 - splitting machine tender (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 Subjective Date/time seen: 12/30/23 12:20 Interval history: Follow-up for end stage renal disease on hemodialysis. Tolerated dialysis treatment yesterday without any issues or problems; issues with persistent nausea and vomiting overnight necessitating placement of a NG tube; mentation seems to continue to fluctuate but seems a bit better on my visit; no apparent distress noted. Exam Narrative: General: elderly but WD/WN female in NAD Heart: normal S1 and S2; no rub Lungs: clear anteriorly; decreased at bases Abdomen: soft, nontender, nondistended, positive bowel sounds Extremities: no cyanosis or clubbing; no edema Skin: no rash Objective Data Vital Signs Vital Signs: Vital Signs Temp Pulse Resp BP Pulse Ox O2 Del Method O2 Flow Rate 12/30/23 12:00 99.4 F 72 15 127/95 H 97 12/30/23 08:00 99.8 F H 68 15 132/42 L 92 12/30/23 06:00 74 12/30/23 04:00 96 Nasal Cannula 2 12/30/23 04:00 99.9 F H 74 18 150/55 H 96 12/30/23 04:00 74 12/30/23 07:22 68 13 12/29
[2023-12-30] MEDS: PIPERACILLIN/TAZ 2.25G/NS 50ML 2.25 GM/50 ML BAG IVPB ×2 (14:04→21:27)
[2023-12-30] MEDS: HEPARIN SOD/D5W 100 UNITS/ML 25,000 UNITS/250 ML BAG 12 UNITS IV CONT (14:05)
[2023-12-30 16:19] LABS: Glucose Point of Care 248 mg/dl (65-105)
[2023-12-30] MEDS: CALCIUM ACETATE 667 MG TABLET FEED TUBE (17:02)
[2023-12-30] MEDS: SODIUM ZIRCONIUM CYCLOSILICATE 10 GM POWD.PACK FEED TUBE (18:49)
--- NOTE | 2023-12-30 19:20 | WPDNEUROPN ---
Progress Note: A&P Assessment and Plan (1) Left-sided cerebrovascular accident (CVA): Code(s): I63.9 - Cerebral infarction, unspecified Status: Acute (2) Left sided cerebral hemisphere cerebrovascular accident: Code(s): I63.9 - Cerebral infarction, unspecified Status: Acute (3) Aphasia: Code(s): R47.01 - Aphasia Status: Acute Plan The patient had multiple problems including chronic kidney disease and diabetes mellitus and atrial fibrillation. We are discussing with the hospitalist team and the nursing staff to manage her by avoidance of any hypoxia or hypotension or hypertension and maintain her metabolic status the best possible. Nephrology is working as before. We can try and give her statin and low-dose aspirin the NG tube. Heparin can be used with caution. I have had fair discussion with the family and staff that since he has progress the last 48 hours she will require careful continued care. Subjective Date/time seen: 12/30/23 19:21 Interval history: The patient is 73-year-old with history of left hemispheric stroke with aphasia and right-sided weakness now in intensive care unit. She also has kidney disease and is on hemodialysis. Patient's was present the time of the evaluation. As previously noted that she has progressed within the last 48 hours from aphasia to her right-sided weakness. She now has a NG tube in place. Some of the medication can be given through this. The hospitalist team has been discussing with me regarding the alternate choices for anticoagulation since she was on Eliquis and a was kept NPO in view of the swallowing difficulties. The family is thinking about the G-tube placement but now with the nasogastric tube in place he is able to get this statins and antiplatelets low-dose aspirin since he is on heparin in lieu of Eliquis. Of course all these can be adjusted depending upon the situation. Vital signs have been stable and she has not had any febrile illness pre Review of Systems Review of Systems: no additional issues have been reported. She is somewhat more responsive today. ROS unobtainable: Yes unobtainable due to medical condition Exam Narrative: Patient awake but drowsy. I could not get her to respond to any of the volar commands and I used her to try and see whether she will but I do not think that he had any reliable response to single command. Time she would move her left leg spontaneously and also the right leg but does not move her right arm. She continues to have weakness of the right face and is significantly aphasic and I believe the receptive component slightly better than yesterday. Right arm weakness is at least 2 to 3/5 right lower limb may be weak but difficult to discern but she is moving it independently at time for no involuntary movements are seen. Objective Data Vital Signs Vital Signs: Vital Signs - 24 hr 12/29/23 20:25 12/30/23 02:24 12/30/23 02:31 Temperature Pulse Rate 71 68 Respiratory Rate 16 17 Blood Pressure Pulse Oximetry 95 Oxygen Delivery Nasal Cannula Oxygen Flow Rate 2 Fraction of Inspired Oxygen 12/29/23 20:00 12/29/23 20:00 12/29/23 22:00 Temperature 99.1 F Pulse Rate 73 67 72 Respiratory Rate 15 Blood Pressure 139/43 L Pulse Oximetry 96 Oxygen Delivery Oxygen Flow Rate Fraction of Inspired Oxygen 12/30/23 00:00 12/30/23 00:00 12/30/23 02:00 Temperature 99.2 F Pulse Rate 74 75 75 Respiratory Rate 14 Blood Pressure 149/53 H Pulse Oximetry 100 Oxygen Delivery Oxygen Flow Rate Fraction of Inspired Oxygen 12/30/23 00:00 12/30/23 07:16 12/30/23 07:16 Temperature Pulse Rate 70 70 Respiratory Rate 14 14 Blood Pressure Pulse Oximetry 100 95 Oxygen Delivery Nasal Cannula Room Air Oxygen Flow Rate 2 Fraction of Inspired Oxygen 12/30/23 07:22 12/30/23 04:00 12/30/23 04:00 Temperature 9
[2023-12-30 20:48] LABS: Glucose Point of Care 233 mg/dl (65-105)
[2023-12-30] MEDS: AMIODARONE HCL 200 MG TABLET FEED TUBE (20:55)
[2023-12-31] VITALS (18 sets, daily range): BP systolic 104–171; BP diastolic 40–70; PULSE 51–85; RESP 11–17; TEMP 36.4–37.7; O2SAT 97–100; BMI 38.5; BMI 10.0
[2023-12-31 01:00] LABS: Glucose Point of Care 280 mg/dl (65-105)
[2023-12-31] MEDS: INSULIN HUMAN REGULAR (*BKC) 100 UNITS/ML SUB-Q ×7 (01:08→23:56)
[2023-12-31] MEDS: IPRATROPIUM 0.5 MG/ALBUTEROL SULFATE 2.5 MG AMPUL.NEB 3 ML INHALATION ×2 (02:52→20:06)
[2023-12-31 04:37] LABS: Basophils Absolute Auto 0.1 K/mm3 (0.0-0.1); Basophils Percent Auto 0.6 % (0.2-1.2); Eosinophils Absolute Auto 0.3 K/mm3 (0-0.3); Hematocrit 31.3 % (37.0-47.0); Hemoglobin 10.3 g/dL (12.0-15.0); Immature Granulocyte Absolute 0.15 K/mm3 (0.00-0.031); Immature Granulocyte Percent A 0.9 % (0-0.5); Lymphocytes Absolute Auto 1.75 K/mm3 (0.9-3.2); Mean Corpuscular HGB Conc 32.9 g/dl (32-36); Mean Corpuscular Hemoglobin 32.6 pg (26-34); Mean Corpuscular Volume 99.1 fl (80-100); Mean Platelet Volume 10.3 fl (7.4-10.4); Monocytes Absolute Auto 1.4 K/mm3 (0.1-0.6); Monocytes Percent Auto 8.6 % (2.6-8.5); Neutrophils Absolute Auto 12.2 K/mm3 (1.3-6.7); Neutrophils Percent Auto 76.9 % (45.5-73.1); Platelet Count Result 266 k/mm3 (150-375); Red Blood Count 3.16 M/mm3 (4.2-5.4); Red Cell Distribution Width 13.5 % (11.5-14.5); White Blood Count 15.9 K/mm3 (4.5-10.0)
[2023-12-31 04:53] LABS: Alanine Aminotransferase 22 U/L (6-35); Albumin Level 3.9 g/dL (3.5-5.1); Alkaline Phosphatase 89 U/L (38-126); Anion Gap 16 mmol/L (4-12); Aspartate Amino Transferase 31 U/L (14-36); Bilirubin,Total 0.4 mg/dL (0.2-1.3); Blood Urea Nitrogen 55 mg/dL (7-17); Calcium 8.3 mg/dL (8.4-10.2); Carbon Dioxide 26 mmol/L (22-30); Chloride 93 mmol/L (98-107); Estimated CRCL calculation 6 ml/min; Estimated Glomerular Filt Rate 5; Glucose 289 mg/dL (65-110); Magnesium 1.9 mg/dL (1.6-2.3); Sodium 135 mmol/L (137-145)
[2023-12-31 04:56] LABS: Partial Thromboplastin Time 105.9 Seconds (22.3-36.8)
[2023-12-31] MEDS: LEVOTHYROXINE SODIUM INJ 100 MCG/5 ML VIAL 87.5 MCG IV PUSH (05:44)
[2023-12-31] MEDS: PIPERACILLIN/TAZ 2.25G/NS 50ML 2.25 GM/50 ML BAG IVPB ×3 (05:44→21:04)
[2023-12-31] MEDS: FLUTICASONE/SALMETEROL 230-21 MCG INHALER 1 PUFF 2 PUFF INHALATION (08:26)
[2023-12-31] MEDS: UMECLIDINIUM BROMIDE 62.5 MCG ELLIPTA 1 PUFF INHALATION (08:26)
[2023-12-31 08:44] LABS: Glucose Point of Care 333 mg/dl (65-105)
[2023-12-31] MEDS: ASPIRIN 300 MG SUPPOSITORY RECTAL (08:50)
[2023-12-31] MEDS: PANTOPRAZOLE SODIUM IV 40 MG VIAL IV PUSH (08:50)
[2023-12-31] MEDS: CALCIUM ACETATE 667 MG TABLET FEED TUBE ×3 (08:50→16:37)
[2023-12-31] MEDS: FLUTICASONE PROPIONATE 0.05% NA SPR 16 GM BTL (*BKC) 2 SPRAY NASAL (08:52)
[2023-12-31] MEDS: ACETAMINOPHEN 325 MG TABLET 650 MG PO (09:56)
--- NOTE | 2023-12-31 09:56 | PCRCNOTE ---
Window of time for administration has passed. See next scheduled administration.
--- NOTE | 2023-12-31 10:14 | P.PNNP_ITS ---
Progress Note: A&P Assessment and Plan (1) End stage renal disease: Code(s): N18.6 - End stage renal disease Status: Acute Assessment and Plan: * HD tomorrow * continue T/T/S outpatient dialysis schedule * follow electrolytes, volume status, and clearance (2) Acute CVA (cerebrovascular accident): Code(s): I63.9 - Cerebral infarction, unspecified Status: Acute Assessment and Plan: * as noted by symptoms on evening of 12/24 and morning of 12/25 * confirmed by MRI of brain * CTA of head and neck reviewed * Neurology recommendations noted * on heparin gtt (3) Acute respiratory failure: Code(s): J96.00 - Acute respiratory failure, unspecified whether with hypoxia or hypercapnia Status: Resolved Assessment and Plan: * resolved * multifactorial: * COPD exacerbation * mild fluid overload/CHF * reactive airway disease/asthma * fluid removal with dialysis * supplemental oxygen - weaned off * nebulizer treatments and steroids * follow respiratory status (4) Acute hyperkalemia: Code(s): E87.5 - Hyperkalemia Status: Resolved Assessment and Plan: * due to missed treatment on Sunday * s/p medical management in ER * dialysis has corrected this issue * follow repeat levels (5) UTI (urinary tract infection): Code(s): N39.0 - Urinary tract infection, site not specified Status: Acute Assessment and Plan: * admission UA highly suggestive * follow culture data - urine culture with E.coli * on antibiotics (6) COPD (chronic obstructive pulmonary disease): Qualifiers: COPD type: unspecified COPD Qualified Code(s): J44.9 - Chronic obstructive pulmonary disease, unspecified Code(s): J44.9 - Chronic obstructive pulmonary disease, unspecified Status: Acute Assessment and Plan: * continue supportive therapy * follow respiratory status * see #3 (7) Fluid overload: Code(s): E87.70 - Fluid overload, unspecified Status: Acute Assessment and Plan: * known to have large fluid gains in between dialysis treatments * CXR with mild interstitial edema on admission * continue HD for electrolyte control and fluid removal * follow volume status (8) Hypertension: Code(s): I10 - Essential (primary) hypertension Status: Chronic Assessment and Plan: * reasonable control at this time * follow trend of hemodynamics (9) Type 2 diabetes mellitus with hyperglycemia: Qualifiers: Diabetes mellitus detention insulin use: with detention use Qualified Code(s): E11.65 - Type 2 diabetes mellitus with hyperglycemia; Z79.4 - termite control servicer (current) use of insulin Code(s): E11.65 - Type 2 diabetes mellitus with hyperglycemia Status: Chronic Assessment and Plan: * follow accu-cheks * glycemic control per hospitalists Will continue to follow. Subjective Date/time seen: 12/31/23 10:14 Interval history: Follow-up for end stage renal disease on hemodialysis. Some improvement in mental status at the time of my visitg but still remains aphasic; no apparent distress currently; seems a bit more cooperative in general as well; no issues/events overnight or earlier this morning. Exam Narrative: General: elderly but WD/WN female in NAD Heart: normal S1 and S2; no rub Lungs: clear anteriorly; decreased at bases Abdomen: soft, nontender, nondistended, positive bowel griselda
--- NOTE | 2023-12-31 10:14 | PM.PNNEP ---
Progress Note: A&P Assessment and Plan (1) End stage renal disease: Code(s): N18.6 - End stage renal disease Status: Acute Assessment and Plan: HD tomorrow continue T/T/S outpatient dialysis schedule follow electrolytes, volume status, and clearance (2) Acute CVA (cerebrovascular accident): Code(s): I63.9 - Cerebral infarction, unspecified Status: Acute Assessment and Plan: as noted by symptoms on evening of 12/24 and morning of 12/25 confirmed by MRI of brain CTA of head and neck reviewed Neurology recommendations noted on heparin gtt (3) Acute respiratory failure: Code(s): J96.00 - Acute respiratory failure, unspecified whether with hypoxia or hypercapnia Status: Resolved Assessment and Plan: resolved multifactorial: COPD exacerbation mild fluid overload/CHF reactive airway disease/asthma fluid removal with dialysis supplemental oxygen - weaned off nebulizer treatments and steroids follow respiratory status (4) Acute hyperkalemia: Code(s): E87.5 - Hyperkalemia Status: Resolved Assessment and Plan: due to missed treatment on Sunday s/p medical management in ER dialysis has corrected this issue follow repeat levels (5) UTI (urinary tract infection): Code(s): N39.0 - Urinary tract infection, site not specified Status: Acute Assessment and Plan: admission UA highly suggestive follow culture data - urine culture with E.coli on antibiotics (6) COPD (chronic obstructive pulmonary disease): Qualifiers: COPD type: unspecified COPD Qualified Code(s): J44.9 - Chronic obstructive pulmonary disease, unspecified Code(s): J44.9 - Chronic obstructive pulmonary disease, unspecified Status: Acute Assessment and Plan: continue supportive therapy follow respiratory status see #3 (7) Fluid overload: Code(s): E87.70 - Fluid overload, unspecified Status: Acute Assessment and Plan: known to have large fluid gains in between dialysis treatments CXR with mild interstitial edema on admission continue HD for electrolyte control and fluid removal follow volume status (8) Hypertension: Code(s): I10 - Essential (primary) hypertension Status: Chronic Assessment and Plan: reasonable control at this time follow trend of hemodynamics (9) Type 2 diabetes mellitus with hyperglycemia: Qualifiers: Diabetes mellitus long line teamster insulin use: with shelter use Qualified Code(s): E11.65 - Type 2 diabetes mellitus with hyperglycemia; Z79.4 - FPC (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 Subjective Date/time seen: 12/31/23 10:14 Interval history: Follow-up for end stage renal disease on hemodialysis. Some improvement in mental status at the time of my visitg but still remains aphasic; no apparent distress currently; seems a bit more cooperative in general as well; no issues/events overnight or earlier this morning. Exam Narrative: General: elderly but WD/WN female in NAD Heart: normal S1 and S2; no rub Lungs: clear anteriorly; decreased at bases Abdomen: soft, nontender, nondistended, positive bowel sounds Extremities: no cyanosis or clubbing; no edema Skin: no nodules Objective Data Vital Signs Vital Signs: Vital Signs Temp Pulse Resp BP Pulse Ox O2 Del Method O2 Flow Rate 12/31/23 08:00 99.2 F 59 L 13 147/47 H 99 12/31/23 08:00 57 L 12/31/23 08:00 64 11 L 97 Nasal Cannula 2 12/31/23 04:00 97 Nasal Cannula 2 12/31/23 04:00 99.7 F H 63 11 L 122/44 L 97 12/31/23 06:00 64 12/31/23 04:00 63 12/31/23 03:11 70 14 12/31/23 02:52 66
[2023-12-31] MEDS: HEPARIN SOD/D5W 100 UNITS/ML 25,000 UNITS/250 ML BAG 12 UNITS IV CONT (11:06)
[2023-12-31 13:07] LABS: Glucose Point of Care 296 mg/dl (65-105)
--- NOTE | 2023-12-31 13:08 | PM.IMPN ---
Progress Note: A&P Assessment and Plan (1) Hyperkalemia: Code(s): E87.5 - Hyperkalemia Status: Acute (2) Diabetes mellitus with hyperglycemia: Code(s): E11.65 - Type 2 diabetes mellitus with hyperglycemia Status: Acute (3) Hypoxia: Code(s): R09.02 - Hypoxemia Status: Acute (4) Pseudohyponatremia: Code(s): R79.89 - Other specified abnormal findings of blood chemistry Status: Acute (5) UTI symptoms: Code(s): R39.9 - Unspecified symptoms and signs involving the genitourinary system Status: Acute (6) Leukocytosis: Code(s): D72.829 - Elevated white blood cell count, unspecified Status: Acute (7) Acute on chronic heart failure: Code(s): I50.9 - Heart failure, unspecified Status: Acute (8) Aphasia: Code(s): R47.01 - Aphasia Status: Acute Plan 72-year-old female with a history of type 2 diabetes mellitus with long-term use of insulin, hypertension, hyperlipidemia, ESRD on dialysis Sunday, CAD, diastolic CHF, atrial fibrillation on apixaban, restless leg syndrome, hypothyroidism, depression and anxiety, RAINA, peripheral neuropathy, history of cerebellar CVA remote presented with imbalance, GERD with Gongora's, history of esophageal stricture, COPD, peripheral neuropathy, history of DVT. She present to the ER for shortness of breath and generalized weakness. In the ER patient appeared weak on presentation. Her potassium was high at 7 received calcium gluconate and high-dose albuterol therapy. Dextrose and insulin. Laboratory evaluation showed WBC count 10.2. Urinalysis shows positive leukocyte esterase greater than 100 WBCs cells. No Bacteria. History has been inconsistent history. Unfortunately she is a poor historian The patient herself reports she missed Lasix, other family member has reported she missed dialysis. Hyperglycemia noted with blood sugar up to 572 on arrival to the ED. patient was also wheezy on presentation. She was started on ceftriaxone for UTI. She was admitted for further treatment Sometime in the evening of 12/[address] head was performed which demonstrated or infarct in the left cerebellum and bilateral basal ganglia. She was out of the window for tPA. CT could not be done due to end-stage renal disease. She was already on apixaban as well. Neurology was consulted. MRI brain was performed on 12/26/2023 which documented acute infarct in the left hippocampus left posterior frontal lobe with no hemorrhage. Aspirin Plavix added. Echo ordered which has done yet to uncooperativeness. Eventually CTA was done 12/27/2023 which revealed complete occlusion of left M2 segment. Carotid Doppler with less than 50% stenosis in VEE and LICA. With her stroke she is having aphasia as well as right-sided weakness dysphagia. Speech therapy PT OT on board. Since NPO Will switch her to aspirin rectally. Discussed anticoagulation with Neurology and suggested heparin drip as she is not able to take apixaban currently. there is risk of bleeding and this was discussed with her daughter Gwen over the phone. Remains on low-dose heparin drip. Per protocol. Her mental status waxes and wanes likely due to stroke. CT head repeated again today to ensure no bleeding which came back negative. If continues eventually will need PEG tube placement. NG tube in place and will start trickle feeds and tolerated well. Advanced to 40 mL/hour [place] consult Possible aspiration chest x-ray. Switch antibiotic to Zosyn IV End-stage renal disease on Sunday nephrology on board History of atrial fibrillation sinus rhythm on amiodarone and apixaban at home along with metoprolol. Hyperkalemia on presentation treated up the. Continue to monitor Type 2 diabetes mellitus with hyperglycemia on presentation. Increase insulin dosing. Now since tube feed. COPD exacerbation with diffuse wheezing on presentation. Jaycee
[2023-12-31] MEDS: rOPINIRole HCL 1 MG TABLET BY MOUTH ×2 (13:11→21:05)
[2023-12-31 16:35] LABS: Glucose Point of Care 338 mg/dl (65-105)
[2023-12-31] MEDS: ROSUVASTATIN 5 MG TABLET FEED TUBE (21:05)
[2023-12-31] MEDS: AMIODARONE HCL 200 MG TABLET FEED TUBE (21:05)
[2023-12-31] MEDS: INSULIN GLARGINE (*BKC) 100 UNITS/ML 20 UNITS SUB-Q (21:06)
[2023-12-31 21:09] LABS: Glucose Point of Care 367 mg/dl (65-105)
[2023-12-31 23:53] LABS: Glucose Point of Care 358 mg/dl (65-105)
[2024-01-01] VITALS (37 sets, daily range): BP systolic 101–176; BP diastolic 41–100; PULSE 54–83; RESP 9–22; TEMP 35.9–37.3; O2SAT 94–100
[2024-01-01] MEDS: IPRATROPIUM 0.5 MG/ALBUTEROL SULFATE 2.5 MG AMPUL.NEB 3 ML INHALATION ×4 (02:04→20:03)
[2024-01-01 04:50] LABS: Basophils Absolute Auto 0.1 K/mm3 (0.0-0.1); Basophils Percent Auto 0.7 % (0.2-1.2); Eosinophils Absolute Auto 0.5 K/mm3 (0-0.3); Eosinophils Percent Auto 2.7 % (0-4.4); Hemoglobin 10.5 g/dL (12.0-15.0); Immature Granulocyte Absolute 0.18 K/mm3 (0.00-0.031); Lymphocytes Absolute Auto 1.55 K/mm3 (0.9-3.2); Lymphocytes Percent Auto 8.3 % (18.3-44.2); Mean Corpuscular HGB Conc 31.8 g/dl (32-36); Mean Corpuscular Hemoglobin 32.2 pg (26-34); Mean Corpuscular Volume 101.2 fl (80-100); Monocytes Absolute Auto 1.5 K/mm3 (0.1-0.6); Neutrophils Absolute Auto 14.7 K/mm3 (1.3-6.7); Neutrophils Percent Auto 79.3 % (45.5-73.1); Platelet Count Result 245 k/mm3 (150-375); Red Blood Count 3.26 M/mm3 (4.2-5.4); Red Cell Distribution Width 13.5 % (11.5-14.5); White Blood Count 18.6 K/mm3 (4.5-10.0)
[2024-01-01 04:52] LABS: Glucose Point of Care 341 mg/dl (65-105)
[2024-01-01] MEDS: INSULIN HUMAN REGULAR (*BKC) 100 UNITS/ML SUB-Q ×3 (04:53→12:54)
[2024-01-01 05:10] LABS: Alanine Aminotransferase 19 U/L (6-35); Albumin Level 3.9 g/dL (3.5-5.1); Alkaline Phosphatase 89 U/L (38-126); Anion Gap 14 mmol/L (4-12); Aspartate Amino Transferase 25 U/L (14-36); Bilirubin,Total 0.4 mg/dL (0.2-1.3); Blood Urea Nitrogen 67 mg/dL (7-17); Calcium 8.4 mg/dL (8.4-10.2); Carbon Dioxide 27 mmol/L (22-30); Chloride 92 mmol/L (98-107); Estimated CRCL calculation 6 ml/min; Estimated Glomerular Filt Rate 4; Glucose 340 mg/dL (65-110); Magnesium 2.1 mg/dL (1.6-2.3); Potassium 3.9 mmol/L (3.4-5.0); Sodium 133 mmol/L (137-145)
[2024-01-01] MEDS: LEVOTHYROXINE SODIUM INJ 100 MCG/5 ML VIAL 87.5 MCG IV PUSH (05:34)
[2024-01-01] MEDS: PIPERACILLIN/TAZ 2.25G/NS 50ML 2.25 GM/50 ML BAG IVPB ×2 (05:35→21:02)
[2024-01-01 06:35] LABS: Partial Thromboplastin Time 31.5 Seconds (22.3-36.8)
[2024-01-01 07:34] LABS: Partial Thromboplastin Time 99.6 Seconds (22.3-36.8)
[2024-01-01] MEDS: FLUTICASONE/SALMETEROL 230-21 MCG INHALER 1 PUFF 2 PUFF INHALATION ×2 (07:41→20:04)
[2024-01-01] MEDS: UMECLIDINIUM BROMIDE 62.5 MCG ELLIPTA 1 PUFF INHALATION (07:41)
[2024-01-01 08:23] LABS: Vitamin B6 <2.0 ng/mL (2.1-21.7)
[2024-01-01] MEDS: ACETAMINOPHEN 325 MG TABLET 650 MG PO ×2 (09:04→20:36)
[2024-01-01] MEDS: ASPIRIN 81 MG CHEWABLE TABLET FEED TUBE (09:04)
[2024-01-01] MEDS: CALCIUM ACETATE 667 MG TABLET FEED TUBE ×2 (09:05→12:54)
[2024-01-01] MEDS: rOPINIRole HCL 1 MG TABLET BY MOUTH ×2 (09:05→20:36)
[2024-01-01] MEDS: PANTOPRAZOLE SODIUM IV 40 MG VIAL IV PUSH (09:05)
[2024-01-01] MEDS: FLUTICASONE PROPIONATE 0.05% NA SPR 16 GM BTL (*BKC) 2 SPRAY NASAL (09:06)
[2024-01-01] MEDS: ROSUVASTATIN 5 MG TABLET FEED TUBE (09:08)
[2024-01-01 09:27] LABS: Glucose Point of Care 328 mg/dl (65-105)
[2024-01-01] MEDS: HEPARIN SOD/D5W 100 UNITS/ML 25,000 UNITS/250 ML BAG 12 UNITS IV CONT (10:00)
--- NOTE | 2024-01-01 11:39 | PCNFU ---
Nutrition Follow-Up Complete: Swallowing Difficulties as related to CVA as evidenced by failed MBS/tube feedings. Goal: Meet estimated nutritional needs Patient is meeting goal. We will continue current goal. Pt current nutrition is Nepro at 40 ml/hr. Last recorded weight is 106.2 kg, up from 101.8 kg on admit. Bowel Motility: +BM reported 12/31 Labs Reviewed:Glu 340, Cr 8.9,BUN 67,GFR 4, Na 133 Meds Noted: Lantus, Zosyn, Protonix, Eliquis,Heparin. Skin: WNL Additional Notes: Patient remains on NGT feedings of Nepro at 40 ml/hr with Flush 30 ml q 4 hours. Tolerating per nursing. Plans for GI consult for PEG placement. Dialysis again today. Agree with diet orders. Will monitor weight, labs, skin, tube feedings, meds every Sunday and Sunday.
--- NOTE | 2024-01-01 12:17 | PM.IMPN ---
Progress Note: A&P Assessment and Plan (1) Hyperkalemia: Code(s): E87.5 - Hyperkalemia Status: Acute (2) Diabetes mellitus with hyperglycemia: Code(s): E11.65 - Type 2 diabetes mellitus with hyperglycemia Status: Acute (3) Hypoxia: Code(s): R09.02 - Hypoxemia Status: Acute (4) Pseudohyponatremia: Code(s): R79.89 - Other specified abnormal findings of blood chemistry Status: Acute (5) UTI symptoms: Code(s): R39.9 - Unspecified symptoms and signs involving the genitourinary system Status: Acute (6) Leukocytosis: Code(s): D72.829 - Elevated white blood cell count, unspecified Status: Acute (7) Acute on chronic heart failure: Code(s): I50.9 - Heart failure, unspecified Status: Acute (8) Aphasia: Code(s): R47.01 - Aphasia Status: Acute Plan 72-year-old female with a history of type 2 diabetes mellitus with long-term use of insulin, hypertension, hyperlipidemia, ESRD on dialysis Sunday, CAD, diastolic CHF, atrial fibrillation on apixaban, restless leg syndrome, hypothyroidism, depression and anxiety, RAINA, peripheral neuropathy, history of cerebellar CVA remote presented with imbalance, GERD with Gongora's, history of esophageal stricture, COPD, peripheral neuropathy, history of DVT. She present to the ER for shortness of breath and generalized weakness. In the ER patient appeared weak on presentation. Her potassium was high at 7 received calcium gluconate and high-dose albuterol therapy. Dextrose and insulin. Laboratory evaluation showed WBC count 10.2. Urinalysis shows positive leukocyte esterase greater than 100 WBCs cells. No Bacteria. History has been inconsistent history. Unfortunately she is a poor historian The patient herself reports she missed Lasix, other family member has reported she missed dialysis. Hyperglycemia noted with blood sugar up to 572 on arrival to the ED. patient was also wheezy on presentation. She was started on ceftriaxone for UTI. She was admitted for further treatment Sometime in the evening of 12/[address] head was performed which demonstrated or infarct in the left cerebellum and bilateral basal ganglia. She was out of the window for tPA. CT could not be done due to end-stage renal disease. She was already on apixaban as well. Neurology was consulted. MRI brain was performed on 12/26/2023 which documented acute infarct in the left hippocampus left posterior frontal lobe with no hemorrhage. Aspirin Plavix added. Echo ordered which has done yet to uncooperativeness. Eventually CTA was done 12/27/2023 which revealed complete occlusion of left M2 segment. Carotid Doppler with less than 50% stenosis in VEE and LICA. With her stroke she is having aphasia as well as right-sided weakness dysphagia. Speech therapy PT OT on board. Since NPO stop her to aspirin rectally. Discussed anticoagulation with Neurology and suggested heparin drip as she is not able to take apixaban currently. there is risk of bleeding and this was discussed with her daughter Gwen over the phone. Remains on low-dose heparin drip. Per protocol. Her mental status waxes and wanes likely due to stroke. CT head repeated again to ensure no bleeding which came back negative. NG tube placed eventually and tube feeds started. Tube feeds at goal. Speech therapy eval. Discussed G-tube placement which seems inevitable. Family agreeable Possible aspiration chest x-ray. Switch antibiotic to Zosyn IV. Leukocytosis fluctuating End-stage renal disease on Sunday nephrology on board History of atrial fibrillation sinus rhythm on amiodarone and apixaban at home along with metoprolol. Hyperkalemia on presentation treated up the. Continue to monitor Type 2 diabetes mellitus with hyperglycemia on presentation. Increase insulin dosing. Now since tube feed. COPD exacerbation with diffuse wheezing on pre
[2024-01-01 12:53] LABS: Glucose Point of Care 332 mg/dl (65-105)
[2024-01-01 13:28] LABS: Vitamin B1 10 nmol/L (8-30)
--- NOTE | 2024-01-01 16:04 | PC.NURSE ---
Patient taken to dialysis room for HD.
--- NOTE | 2024-01-01 16:30 | P.PNNP_ITS ---
Progress Note: A&P Assessment and Plan (1) End stage renal disease: Code(s): N18.6 - End stage renal disease Status: Acute Assessment and Plan: * HD today * continue T/T/S outpatient dialysis schedule * follow electrolytes, volume status, and clearance (2) Acute CVA (cerebrovascular accident): Code(s): I63.9 - Cerebral infarction, unspecified Status: Acute Assessment and Plan: * as noted by symptoms on evening of 12/24 and morning of 12/25 * confirmed by MRI of brain * CTA of head and neck reviewed * Neurology recommendations noted * on heparin gtt (3) Acute respiratory failure: Code(s): J96.00 - Acute respiratory failure, unspecified whether with hypoxia or hypercapnia Status: Resolved Assessment and Plan: * resolved * multifactorial: * COPD exacerbation * mild fluid overload/CHF * reactive airway disease/asthma * fluid removal with dialysis * supplemental oxygen - weaned off * nebulizer treatments and steroids * follow respiratory status (4) Acute hyperkalemia: Code(s): E87.5 - Hyperkalemia Status: Resolved Assessment and Plan: * due to missed treatment on Sunday * s/p medical management in ER * dialysis has corrected this issue * follow repeat levels (5) UTI (urinary tract infection): Code(s): N39.0 - Urinary tract infection, site not specified Status: Acute Assessment and Plan: * admission UA highly suggestive * follow culture data - urine culture with E.coli * on antibiotics (6) COPD (chronic obstructive pulmonary disease): Qualifiers: COPD type: unspecified COPD Qualified Code(s): J44.9 - Chronic obstructive pulmonary disease, unspecified Code(s): J44.9 - Chronic obstructive pulmonary disease, unspecified Status: Acute Assessment and Plan: * continue supportive therapy * follow respiratory status * see #3 (7) Fluid overload: Code(s): E87.70 - Fluid overload, unspecified Status: Acute Assessment and Plan: * known to have large fluid gains in between dialysis treatments * CXR with mild interstitial edema on admission * continue HD for electrolyte control and fluid removal * follow volume status (8) Hypertension: Code(s): I10 - Essential (primary) hypertension Status: Chronic Assessment and Plan: * reasonable control at this time * follow trend of hemodynamics (9) Type 2 diabetes mellitus with hyperglycemia: Qualifiers: Diabetes mellitus chcf insulin use: with chcf use Qualified Code(s): E11.65 - Type 2 diabetes mellitus with hyperglycemia; Z79.4 - terminal computer operator (current) use of insulin Code(s): E11.65 - Type 2 diabetes mellitus with hyperglycemia Status: Chronic Assessment and Plan: * follow accu-cheks * glycemic control per hospitalists Will continue to follow. Subjective Date/time seen: 01/01/24 16:30 Interval history: Follow-up for end stage renal disease on hemodialysis. Tolerating dialysis treatment at the time of my visit (seen on HD at 4:20PM); fluctuating mentation noted -- looks at me but does not respond to my questions (remains non-verbal and non-communicative); no apparent distress noted. Exam Narrative: General: elderly but WD/WN female in NAD Heart: normal S1 and S2; no rub Lungs: clear anteriorly; decreased at bases Abdomen: soft, nontender, nondistended, positive
--- NOTE | 2024-01-01 16:30 | PM.PNNEP ---
Progress Note: A&P Assessment and Plan (1) End stage renal disease: Code(s): N18.6 - End stage renal disease Status: Acute Assessment and Plan: HD today continue T/T/S outpatient dialysis schedule follow electrolytes, volume status, and clearance (2) Acute CVA (cerebrovascular accident): Code(s): I63.9 - Cerebral infarction, unspecified Status: Acute Assessment and Plan: as noted by symptoms on evening of 12/24 and morning of 12/25 confirmed by MRI of brain CTA of head and neck reviewed Neurology recommendations noted on heparin gtt (3) Acute respiratory failure: Code(s): J96.00 - Acute respiratory failure, unspecified whether with hypoxia or hypercapnia Status: Resolved Assessment and Plan: resolved multifactorial: COPD exacerbation mild fluid overload/CHF reactive airway disease/asthma fluid removal with dialysis supplemental oxygen - weaned off nebulizer treatments and steroids follow respiratory status (4) Acute hyperkalemia: Code(s): E87.5 - Hyperkalemia Status: Resolved Assessment and Plan: due to missed treatment on Sunday s/p medical management in ER dialysis has corrected this issue follow repeat levels (5) UTI (urinary tract infection): Code(s): N39.0 - Urinary tract infection, site not specified Status: Acute Assessment and Plan: admission UA highly suggestive follow culture data - urine culture with E.coli on antibiotics (6) COPD (chronic obstructive pulmonary disease): Qualifiers: COPD type: unspecified COPD Qualified Code(s): J44.9 - Chronic obstructive pulmonary disease, unspecified Code(s): J44.9 - Chronic obstructive pulmonary disease, unspecified Status: Acute Assessment and Plan: continue supportive therapy follow respiratory status see #3 (7) Fluid overload: Code(s): E87.70 - Fluid overload, unspecified Status: Acute Assessment and Plan: known to have large fluid gains in between dialysis treatments CXR with mild interstitial edema on admission continue HD for electrolyte control and fluid removal follow volume status (8) Hypertension: Code(s): I10 - Essential (primary) hypertension Status: Chronic Assessment and Plan: reasonable control at this time follow trend of hemodynamics (9) Type 2 diabetes mellitus with hyperglycemia: Qualifiers: Diabetes mellitus termination clerk insulin use: with prison use Qualified Code(s): E11.65 - Type 2 diabetes mellitus with hyperglycemia; Z79.4 - detention (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 Subjective Date/time seen: 01/01/24 16:30 Interval history: Follow-up for end stage renal disease on hemodialysis. Tolerating dialysis treatment at the time of my visit (seen on HD at 4:20PM); fluctuating mentation noted -- looks at me but does not respond to my questions (remains non-verbal and non-communicative); no apparent distress noted. Exam Narrative: General: elderly but WD/WN female in NAD Heart: normal S1 and S2; no rub Lungs: clear anteriorly; decreased at bases Abdomen: soft, nontender, nondistended, positive bowel sounds Extremities: no cyanosis or clubbing; no edema Skin: warm and intact Objective Data Vital Signs Vital Signs: Vital Signs Temp Pulse Resp BP Pulse Ox O2 Del Method O2 Flow Rate 01/01/24 16:30 61 156/72 H 01/01/24 16:15 63 176/58 H 01/01/24 15:45 97.8 F 59 L 16 174/41 H 97 01/01/24 15:56 64 165/55 H 01/01/24 14:00 54 L 01/01/24 12:00 60 20 100 Nasal Cannula 2 01/01/24 12:00 55 L 01/01/24 12:00 98.6 F 54 L 19 148/43 H 100
--- NOTE | 2024-01-01 18:25 | WPDGICN ---
Assessment and Plan Assessment and plan (1) Aphasia: Code(s): R47.01 - Aphasia Status: Acute Assessment and Plan: stroke and now with risk for aspiration plan egd with peg placement tomorrow eliquis on hold will get abx prior peg (2) Aspiration into airway: Code(s): T17.908A - Unspecified foreign body in respiratory tract, part unspecified causing other injury, initial encounter Status: Acute (3) Left-sided cerebrovascular accident (CVA): Code(s): I63.9 - Cerebral infarction, unspecified Status: Acute Assessment and Plan: by neurology (4) End stage renal disease: Code(s): N18.6 - End stage renal disease Status: Acute Assessment and Plan: on dialysis today (5) Type 2 diabetes mellitus with hyperglycemia: Qualifiers: Diabetes mellitus brush stainer insulin use: with [facility] use Qualified Code(s): E11.65 - Type 2 diabetes mellitus with hyperglycemia; Z79.4 - credit control assistant (current) use of insulin Code(s): E11.65 - Type 2 diabetes mellitus with hyperglycemia Status: Chronic GI Consult Note Consult date/time: 01/01/24 18:25 Reason for consult: aspiration HPI: Gregoria Rae is a 73 year old female with past medical history of dm, HTN, ESRD on dialysis, CAD, CHF (diastolic), AFib on eliquis, RAINA, peripheral neuropathy, h/o CVA, COPD, GERD w/ Gongora's, h/o esophageal stricture, depression, anxiety, COPD/asthma, DVT. She was admitted after new stroke with aphasia several days ago, had abnormal MBS c/w aspiration and now family is agreeable for PEG placement because inability to eat. History obtained from records, she is not talking. Review of Systems Review of Systems: ROS unobtainable: Yes unobtainable due to mental status [facility] Past Medical History Medical History (Updated 01/01/24 @ 18:31 by Theo Slater MD) Aspiration into airway Asthma-COPD overlap syndrome 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 Cerebrovascular accident Chronic anticoagulation Chronic diastolic (congestive) heart failure Chronic obstructive pulmonary disease Community acquired pneumonia due to Haemophilus influenzae Coronary artery disease involving [place] heart without angina pectoris Deep venous thrombosis Depression ESRD on hemodialysis Generalized anxiety disorder GERD without esophagitis Hypothyroidism Insulin dependent type 2 diabetes mellitus Left-sided cerebrovascular accident (CVA) Obstructive sleep apnea Paroxysmal atrial fibrillation Peripheral polyneuropathy Surgical History Surgical History History of cataract extraction History of cholecystectomy History of gastrostomy tube placement and removal History of tonsillectomy History of tracheostomy Family History Family History Father Hypertension Family history of coronary artery disease Sibling Hypertension Family history of coronary artery disease Mother Cerebrovascular accident Other Asthma Depression Family history of Alzheimer's disease Family history of arthritis Family history of cardiovascular disease Family history of lymphoma Family history of obesity Family history of seizure disorder Social History Social History Social History: Surrogate medical decision maker: Anjum (spouse) or Gwen (daughter) Kyra. Code status: Full code. Smoking packs per day: 2 Smoking cigarettes per day: 40.0 Years smoked: 30 Smoking pack-years: 60.00 Smoking status: Former smoker Tobacco type: cigarettes Second hand tobacco smoke exposure: No Smoking end date: 05/07/89 Alcohol intake: unknown Alcohol use details: special occasions Substance use: former Substance use type: marijuana Last use: 01/05/23 Do You Feel Safe in your Home?: Yes Lack of Transportation: YES Lack of Food:
[2024-01-01] MEDS: AMIODARONE HCL 200 MG TABLET FEED TUBE (20:37)
[2024-01-01] MEDS: INSULIN GLARGINE (*BKC) 100 UNITS/ML 20 UNITS SUB-Q (20:42)
[2024-01-01 21:06] LABS: Glucose Point of Care 204 mg/dl (65-105)
[2024-01-01] MEDS: ONDANSETRON INJ 4 MG/2 ML VIAL IV PUSH (22:15)
[2024-01-01] MEDS: INSULIN ASPART (*BKC) 100 UNITS/ML 8 UNITS SUB-Q (23:31)
[2024-01-02] VITALS (26 sets, daily range): BP systolic 135–176; BP diastolic 44–80; PULSE 61–77; RESP 12–22; TEMP 36.5–37.5; O2SAT 90–99
[2024-01-02] MEDS: LORazepam INJ (*CRX) 2 MG/ML VIAL 0.5 MG IV PUSH (01:05)
[2024-01-02] MEDS: IPRATROPIUM 0.5 MG/ALBUTEROL SULFATE 2.5 MG AMPUL.NEB 3 ML INHALATION ×3 (02:18→20:20)
[2024-01-02 05:19] LABS: Hematocrit 36.1 % (37.0-47.0); Hemoglobin 11.7 g/dL (12.0-15.0); Mean Corpuscular HGB Conc 32.4 g/dl (32-36); Mean Corpuscular Hemoglobin 32.6 pg (26-34); Mean Corpuscular Volume 100.6 fl (80-100); Mean Platelet Volume 10.7 fl (7.4-10.4); Platelet Count Result 280 k/mm3 (150-375); Red Blood Count 3.59 M/mm3 (4.2-5.4); Red Cell Distribution Width 13.4 % (11.5-14.5); White Blood Count 16.5 K/mm3 (4.5-10.0)
[2024-01-02 05:30] LABS: Partial Thromboplastin Time 82.7 Seconds (22.3-36.8); Prothrombin Time 14.2 Seconds (11.1-14.7)
[2024-01-02 05:31] LABS: Anion Gap 16 mmol/L (4-12); Blood Urea Nitrogen 31 mg/dL (7-17); Calcium 9.1 mg/dL (8.4-10.2); Carbon Dioxide 26 mmol/L (22-30); Chloride 96 mmol/L (98-107); Estimated CRCL calculation 10 ml/min; Estimated Glomerular Filt Rate 8; Glucose 177 mg/dL (65-110); Potassium 3.9 mmol/L (3.4-5.0); Sodium 138 mmol/L (137-145)
[2024-01-02] MEDS: PIPERACILLIN/TAZ 2.25G/NS 50ML 2.25 GM/50 ML BAG IVPB ×3 (05:31→21:02)
[2024-01-02] MEDS: LEVOTHYROXINE SODIUM INJ 100 MCG/5 ML VIAL 87.5 MCG IV PUSH (06:18)
--- NOTE | 2024-01-02 07:27 | PC.NURSE ---
Overnight the patient managed to remove her mitt and proceed to take her NG and FMS out. Dr. Davis was notified and she verbalized to leave them out because the patient is pending PEG tube placement today.
[2024-01-02 08:11] LABS: Glucose Point of Care 271 mg/dl (65-105)
[2024-01-02 08:12] LABS: Glucose Point of Care 182 mg/dl (65-105)
--- NOTE | 2024-01-02 08:30 | PC.NURSE ---
BOB Cano from GI lab call and received report on pt. New order to stop heparin gtt at 0930. GI lab will be here around 1200 to get pt for procedure
[2024-01-02] MEDS: PANTOPRAZOLE SODIUM IV 40 MG VIAL IV PUSH (08:39)
[2024-01-02] MEDS: FLUTICASONE PROPIONATE 0.05% NA SPR 16 GM BTL (*BKC) 2 SPRAY NASAL (08:39)
--- NOTE | 2024-01-02 08:40 | PCOTNOTE ---
Attempted OT treatment this A.M. Per RN, Patient not to be seen this date due to going down for a procedure. Will check back tomorrow. Therapist spoke with Patient's about therapy schedule.
[2024-01-02 11:50] LABS: Glucose Point of Care 172 mg/dl (65-105)
--- NOTE | 2024-01-02 13:13 | WPDNEURCNPN ---
Consult date: 01/02/24 HPI: Gregoria Rae is a 73 year old female Admitted to intensive care unit and initially evaluated by Dr. DARLING with left hemispheric involvement and the right hemiparesis and aphasia in addition to ongoing history of chronic renal disease, diabetes mellitus, and atrial fibrillation. At this stage her CBC shows leukocytosis MCV 100.6 a PTT 82.7 creatinine 5.40 with BUN of 31 C diff negative head CT with acute infarct in left frontoparietal region and left insula in addition to old infarct in cerebellum johann and frontal lobe continues to remain unresponsive to verbal command spontaneously moving her right upper and right lower extremity more so and does not follow the verbal commands , happened to be in the room ,all the pros and cons discussed with thim. no changes in the treatment and plan. 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 Cerebrovascular accident Chronic anticoagulation Chronic diastolic (congestive) heart failure Chronic obstructive pulmonary disease Community acquired pneumonia due to Haemophilus influenzae Coronary artery disease involving [place] heart without angina pectoris Deep venous thrombosis Depression ESRD on hemodialysis Generalized anxiety disorder GERD without esophagitis Hypothyroidism Insulin dependent type 2 diabetes mellitus Left-sided cerebrovascular accident (CVA) Obstructive sleep apnea Paroxysmal atrial fibrillation Peripheral polyneuropathy Surgical History Surgical History History of cataract extraction History of cholecystectomy History of gastrostomy tube placement and removal History of tonsillectomy History of tracheostomy Family History Family History Father Hypertension Family history of coronary artery disease Sibling Hypertension Family history of coronary artery disease Mother Cerebrovascular accident Other Asthma Depression Family history of Alzheimer's disease Family history of arthritis Family history of cardiovascular disease Family history of lymphoma Family history of obesity Family history of seizure disorder Social History Social History Social History: Surrogate medical decision maker: Anjum (spouse) or Gwen (daughter) Kyra. Code status: Full code. Smoking packs per day: 2 Smoking cigarettes per day: 40.0 Years smoked: 30 Smoking pack-years: 60.00 Smoking status: Former smoker Tobacco type: cigarettes Second hand tobacco smoke exposure: No Smoking end date: 05/07/89 Alcohol intake: unknown Alcohol use details: special occasions Substance use: former Substance use type: marijuana Last use: 01/05/23 Do You Feel Safe in your Home?: Yes Lack of Transportation: YES Lack of Food: Never True Current Housing: I Have Housing Concerned About Future Housing: No Difficulty Paying Gas/Electric Bills: No Difficulty Paying for Meds: No Currently Unemployed: No Education: High School Diploma/GED Difficulty w/ Childcare or Family Care: No Living arrangements: with family Occupation/Education: retired Spiritual care concerns: No Meds Home Medications and Allergies Home Medications Medication Instructions Recorded Confirmed Type fluticasone propionate 50 2 spray intranasal DAILY 03/19/19 12/25/23 History mcg/actuation nasal spray,suspension amiodarone 200 mg tablet 200 mg PO HS #30 tabs 07/24/22 12/25/23 Rx metoprolol succinate 50 mg 50 mg PO QAM #90 tabs 02/08/23 12/25/23 Rx tablet,extended release 24 hr calcium acetate(phosphat bind) 667 667 mg PO TIDWM 02/27/23 12/25/23 History mg capsule apixaban 2.5 mg tablet (Eliquis) See Rx Instructions .Route
--- NOTE | 2024-01-02 13:33 | PC.NURSE ---
To GI Lab per [stretcher. Pt placed on GI lab portable monitor for transfer. Kiki sent with GI supervisor plastering to be given by them for the 1400 dose. Anjum , at bedside and aware of plans and transfer of the patient
[2024-01-02] MEDS: ceFAZolin 1 GM/NS 50 ML 1 GM/50 ML BAG IVPB (13:45)
[2024-01-02] MEDS: SODIUM CHLORIDE 0.9% IV 500 ML 10 ML IV CONT (14:03)
--- NOTE | 2024-01-02 14:16 | WPDANESEPPF ---
Anes - Initial Pre Proc Eval Procedure: Operation Date: 01/02/24 15:30 Proposed Procedures p Percutaneous Endoscopic Gastrostomy - Theo Slater MD Date/Time: 01/02/24 14:16 Surgeon: Michael Salmeron MD Pre Op Diagnosis: ESRD requiring HD; COPD/Asthma exac; Heart failure Patient Data Age: 73 Gender: F Height: 1.63 m Weight: 103.3 kg Last Vital Signs Temp 97.7 F 01/02/24 13:45 Pulse 75 01/02/24 13:45 Resp 20 01/02/24 13:45 BP 143/44 H 01/02/24 13:45 Pulse Ox 96 01/02/24 13:45 O2 Del Method Room Air 01/02/24 13:45 O2 Flow Rate 2 01/02/24 08:15 FiO2 28 01/02/24 08:15 Allergies Allergy/AdvReac Type Severity Reaction Status Date / Time nickel Allergy Intermediate hives and Verified 12/25/23 07:40 itchy rash Sulfa (Sulfonamide Allergy Intermediate Urticaria Verified 12/25/23 07:40 Antibiotics) and hives Calcium Channel Blocking AdvReac Intermediate STATES Verified 12/25/23 07:40 Agents-Dih CANNOT TAKE SINCE SHE HAS ASTHMA diphenhydramine AdvReac Intermediate restless Verified 12/25/23 07:40 legs nifedipine AdvReac Intermediate palpitation Verified 12/25/23 07:40 s Gubuusm-[id number]-YtX Reductase AdvReac Intermediate muscle Verified 12/25/23 07:40 Inhibitor cramps [[id number] Reductase Inhibitor] Home Medications Medication Instructions Recorded Confirmed Type fluticasone propionate 50 2 spray intranasal DAILY 03/19/19 12/25/23 History mcg/actuation nasal spray,suspension amiodarone 200 mg tablet 200 mg PO HS #30 tabs 07/24/22 12/25/23 Rx metoprolol succinate 50 mg 50 mg PO QAM #90 tabs 02/08/23 12/25/23 Rx tablet,extended release 24 hr calcium acetate(phosphat bind) 667 667 mg PO TIDWM 02/27/23 12/25/23 History mg capsule apixaban 2.5 mg tablet (Eliquis) See Rx Instructions .Route 06/20/23 12/25/23 Rx .COMPLEX #180 tabs albuterol sulfate 2.5 mg/3 mL 2.5 mg (3 mL) inhalation Q4-6H PRN 07/10/23 12/25/23 Rx (0.083 %) solution for nebulization shortness of breath or wheezing #90 mL fluticasone furoate 200 1 inh inhalation DAILY #60 ea 07/17/23 12/25/23 Rx mcg-vilanterol 25 mcg/dose inhalation powder Spiriva with HandiHaler 18 mcg and 1 cap inhalation DAILY 90 days #90 07/18/23 12/25/23 Rx inhalation capsules (tiotropium caps bromide) montelukast 10 mg tablet 10 mg PO QAM #90 tabs 10/22/23 12/25/23 Rx tramadol 50 mg tablet 50 mg PO Q6H PRN pain #40 tabs 10/26/23 12/25/23 Rx ropinirole 2 mg tablet See Rx Instructions .Route 11/21/23 12/25/23 Rx .COMPLEX #180 tabs levothyroxine 175 mcg tablet 175 mcg PO DAILY #90 tabs 11/23/23 12/25/23 Rx gabapentin 300 mg capsule 900 mg PO DAILY #270 caps 11/27/23 12/25/23 Rx Ventolin HFA 90 mcg/actuation See Rx Instructions .Route 12/03/23 12/25/23 Rx aerosol inhaler (albuterol sulfate) .COMPLEX #18 grams insulin aspart U-100 100 unit/mL See Rx Instructions .Route .COMPLEX 12/25/23 12/25/23 History (3 mL) subcutaneous pen (Novolog FlexPen U-100 Insulin aspart) insulin glargine 100 unit/mL (3 28 unit subcut HS 12/25/23 12/25/23 History mL) subcutaneous pen (Lantus Solostar U-100 Insulin) Laboratory Tests 01/01/24 01/01/24 01/02/24 19:58 23:24 05:13 WBC 16.5 H K/mm3 (4.5-10.0) RBC 3.59 L M/mm3 (4.2-5.4) Hgb 11.7 L g/dL (12.0-15.0) Hct 36.1 L % (37.0-47.0) MCV 100.6 H fl (80-100) MCH 32.6 pg (26-34) MCHC 32.4 g/dl (32-36) RDW 13.4 % (11.5-14.5) Plt Count 280 k/mm3 (150-375) MPV 10.7 H fl (7.4-10.4) PT 14.2 Seconds (11.1-14.7) INR 1.0 APTT 82.7 H Seconds (22.3-36.8) Sodium 138 mmol/L (137-145) Potassium 3.9 mmol/L (3.4-5.0) Chloride 96 L mmol/L (98-107) Carbon Dioxide 26 mmol/L (22-30) Anion Gap 16 H mmol/L
--- NOTE | 2024-01-02 15:40 | PC.NURSE ---
Returned from GI Lab. PEG tube in place
--- NOTE | 2024-01-02 16:00 | PC.NURSE ---
Updated Dr. Ramos regarding Dr. Carrasquillo's orders post PEG insertion. New orders from Dr. Ramos to resume heparin gtt in AM per Dr. Carrasquillo's orders.
[2024-01-02 16:22] LABS: Glucose Point of Care 171 mg/dl (65-105)
--- NOTE | 2024-01-02 16:58 | PM.IMPN ---
Progress Note: A&P Assessment and Plan (1) Hyperkalemia: Code(s): E87.5 - Hyperkalemia Status: Acute (2) Diabetes mellitus with hyperglycemia: Code(s): E11.65 - Type 2 diabetes mellitus with hyperglycemia Status: Acute (3) Hypoxia: Code(s): R09.02 - Hypoxemia Status: Acute (4) Pseudohyponatremia: Code(s): R79.89 - Other specified abnormal findings of blood chemistry Status: Acute (5) UTI symptoms: Code(s): R39.9 - Unspecified symptoms and signs involving the genitourinary system Status: Acute (6) Leukocytosis: Code(s): D72.829 - Elevated white blood cell count, unspecified Status: Acute (7) Acute on chronic heart failure: Code(s): I50.9 - Heart failure, unspecified Status: Acute (8) Aphasia: Code(s): R47.01 - Aphasia Status: Acute Plan ED Course:72-year-old female with a history of type 2 diabetes mellitus with long-term use of insulin, hypertension, hyperlipidemia, ESRD on dialysis Sunday, CAD, diastolic CHF, atrial fibrillation on apixaban, restless leg syndrome, hypothyroidism, depression and anxiety, RAINA, peripheral neuropathy, history of cerebellar CVA remote presented with imbalance, GERD with Gongora's, history of esophageal stricture, COPD, peripheral neuropathy, history of DVT. She present to the ER for shortness of breath and generalized weakness. In the ER patient appeared weak on presentation. Her potassium was high at 7 received calcium gluconate and high-dose albuterol therapy. Dextrose and insulin. Laboratory evaluation showed WBC count 10.2. Urinalysis shows positive leukocyte esterase greater than 100 WBCs cells. No Bacteria. History has been inconsistent history. Unfortunately she is a poor historian The patient herself reports she missed Lasix, other family member has reported she missed dialysis. Hyperglycemia noted with blood sugar up to 572 on arrival to the ED. patient was also wheezy on presentation. She was started on ceftriaxone for UTI. She was admitted for further treatment. #CVA -Sometime in the evening of 12/24 developed aphasia. -CT head was performed which demonstrated or infarct in the left cerebellum and bilateral basal ganglia. She was out of the window for tPA. . She was already on apixaban as well. Neurology was consulted. MRI brain was performed on 12/26/2023 which documented acute infarct in the left hippocampus left posterior frontal lobe with no hemorrhage. Aspirin Plavix added. Echo ordered which has done yet to uncooperativeness. Eventually CTA was done 12/27/2023 which revealed complete occlusion of left M2 segment. Carotid Doppler with less than 50% stenosis in VEE and LICA. -With her stroke she is having aphasia as well as right-sided weakness dysphagia. Speech therapy PT OT on board. -Today she underwent PEG tube placement -Heparin will be resumed tomorrow morning - Will discuss AC with Neurology tomorrow whether to cont ASA,Plaviz and Apixaban. #Possible aspiration chest x-ray. -Cont antibiotic to Zosyn IV. #End-stage renal disease -Dialysis on Sunday nephrology on board. #History of atrial fibrillation sinus rhythm - Cont amiodarone and hold apixaban Anemia chronic Congestive heart failure with edema on x-ray noted on presentation. Full code. Continue NUTRITION CONSULTANT Protonix Continue NUTRITION CONSULTANT Eliquis Fall precautions NPO, pending barium swallow Code status discussed with the family at bedside. Will switch to DNR Subjective Date/time seen: 01/02/24 16:58 Interval history: Patient underwent PEG tube placement today. Patient will be started on heparin drip from tomorrow morning. Tomorrow will discuss with neurology in regards to patient being on aspirin, Eliquis, Plavix. Review of Systems Review of Systems: All systems reviewed & are unremarkable except as noted in HPI and below (Subjective) Constitutional: Constitu
[2024-01-02] MEDS: FLUTICASONE/SALMETEROL 230-21 MCG INHALER 1 PUFF 2 PUFF INHALATION (20:37)
[2024-01-02] MEDS: INSULIN GLARGINE (*BKC) 100 UNITS/ML 20 UNITS SUB-Q (21:03)
[2024-01-02] MEDS: INSULIN HUMAN REGULAR (*BKC) 100 UNITS/ML SUB-Q (21:04)
[2024-01-02 21:12] LABS: Glucose Point of Care 212 mg/dl (65-105)
[2024-01-02] MEDS: AMIODARONE HCL 200 MG TABLET FEED TUBE (22:56)
[2024-01-02] MEDS: rOPINIRole HCL 1 MG TABLET BY MOUTH (22:56)
[2024-01-03] VITALS (38 sets, daily range): BP systolic 113–169; BP diastolic 40–86; PULSE 64–87; RESP 13–20; TEMP 36.8–38; O2SAT 93–98
[2024-01-03] MEDS: INSULIN ASPART (*BKC) 100 UNITS/ML 8 UNITS SUB-Q ×3 (00:10→17:21)
[2024-01-03 00:16] LABS: Glucose Point of Care 198 mg/dl (65-105)
[2024-01-03 01:38] LABS: Glucose Point of Care 163 mg/dl (65-105)
[2024-01-03] MEDS: IPRATROPIUM 0.5 MG/ALBUTEROL SULFATE 2.5 MG AMPUL.NEB 3 ML INHALATION ×4 (02:41→21:11)
[2024-01-03 04:39] LABS: Hematocrit 35.5 % (37.0-47.0); Hemoglobin 10.8 g/dL (12.0-15.0); Mean Corpuscular HGB Conc 30.4 g/dl (32-36); Mean Corpuscular Hemoglobin 31.3 pg (26-34); Mean Corpuscular Volume 102.9 fl (80-100); Mean Platelet Volume 10.9 fl (7.4-10.4); Platelet Count Result 281 k/mm3 (150-375); Red Blood Count 3.45 M/mm3 (4.2-5.4); Red Cell Distribution Width 13.7 % (11.5-14.5); White Blood Count 14.9 K/mm3 (4.5-10.0)
[2024-01-03 04:51] LABS: Partial Thromboplastin Time 28.4 Seconds (22.3-36.8)
[2024-01-03 04:54] LABS: Alanine Aminotransferase 20 U/L (6-35); Albumin Level 4.2 g/dL (3.5-5.1); Alkaline Phosphatase 82 U/L (38-126); Anion Gap 15 mmol/L (4-12); Aspartate Amino Transferase 34 U/L (14-36); Bilirubin,Total 0.4 mg/dL (0.2-1.3); Blood Urea Nitrogen 39 mg/dL (7-17); Carbon Dioxide 25 mmol/L (22-30); Chloride 99 mmol/L (98-107); Estimated CRCL calculation 7 ml/min; Estimated Glomerular Filt Rate 5; Glucose 144 mg/dL (65-110); Potassium 3.7 mmol/L (3.4-5.0); Sodium 139 mmol/L (137-145)
[2024-01-03] MEDS: PIPERACILLIN/TAZ 2.25G/NS 50ML 2.25 GM/50 ML BAG IVPB ×3 (05:15→22:59)
[2024-01-03 05:29] LABS: Glucose Point of Care 139 mg/dl (65-105)
[2024-01-03] MEDS: LEVOTHYROXINE SODIUM INJ 100 MCG/5 ML VIAL 87.5 MCG IV PUSH (05:32)
[2024-01-03] MEDS: HEPARIN SOD/D5W 100 UNITS/ML 25,000 UNITS/250 ML BAG 12 UNITS IV CONT (06:48)
--- NOTE | 2024-01-03 07:29 | PM.IMPN ---
Progress Note: A&P Assessment and Plan (1) Hyperkalemia: Code(s): E87.5 - Hyperkalemia Status: Acute (2) Diabetes mellitus with hyperglycemia: Code(s): E11.65 - Type 2 diabetes mellitus with hyperglycemia Status: Acute (3) Hypoxia: Code(s): R09.02 - Hypoxemia Status: Acute (4) Pseudohyponatremia: Code(s): R79.89 - Other specified abnormal findings of blood chemistry Status: Acute (5) UTI symptoms: Code(s): R39.9 - Unspecified symptoms and signs involving the genitourinary system Status: Acute (6) Leukocytosis: Code(s): D72.829 - Elevated white blood cell count, unspecified Status: Acute (7) Acute on chronic heart failure: Code(s): I50.9 - Heart failure, unspecified Status: Acute (8) Aphasia: Code(s): R47.01 - Aphasia Status: Acute Plan ED Course:72-year-old female with a history of type 2 diabetes mellitus with long-term use of insulin, hypertension, hyperlipidemia, ESRD on dialysis Sunday, CAD, diastolic CHF, atrial fibrillation on apixaban, restless leg syndrome, hypothyroidism, depression and anxiety, RAINA, peripheral neuropathy, history of cerebellar CVA remote presented with imbalance, GERD with Gongora's, history of esophageal stricture, COPD, peripheral neuropathy, history of DVT. She present to the ER for shortness of breath and generalized weakness. In the ER patient appeared weak on presentation. Her potassium was high at 7 received calcium gluconate and high-dose albuterol therapy. Dextrose and insulin. Laboratory evaluation showed WBC count 10.2. Urinalysis shows positive leukocyte esterase greater than 100 WBCs cells. No Bacteria. History has been inconsistent history. Unfortunately she is a poor historian The patient herself reports she missed Lasix, other family member has reported she missed dialysis. Hyperglycemia noted with blood sugar up to 572 on arrival to the ED. patient was also wheezy on presentation. She was started on ceftriaxone for UTI. She was admitted for further treatment. #CVA -Sometime in the evening of 12/24 developed aphasia. -CT head was performed which demonstrated or infarct in the left cerebellum and bilateral basal ganglia. She was out of the window for tPA. . She was already on apixaban as well. Neurology was consulted. MRI brain was performed on 12/26/2023 which documented acute infarct in the left hippocampus left posterior frontal lobe with no hemorrhage. Aspirin Plavix added. Echo ordered which has done yet to uncooperativeness. Eventually CTA was done 12/27/2023 which revealed complete occlusion of left M2 segment. Carotid Doppler with less than 50% stenosis in VEE and LICA. -With her stroke she is having aphasia as well as right-sided weakness dysphagia. Speech therapy PT OT on board. -Today she underwent PEG tube placement -Heparin discontinued - Will discuss AC with Neurology tomorrow - cont ASA and Apixaban. -placement of PEG tube on 01/01 -currently in goal of 40 cc/hour #Possible aspiration chest x-ray. -Cont antibiotic to Zosyn IV. #End-stage renal disease -Dialysis on Sunday nephrology on board. #History of atrial fibrillation sinus rhythm - Cont amiodarone and apixaban Anemia chronic Congestive heart failure with edema on x-ray noted on presentation. Full code. Continue IT NETWORK ARCHITECT Protonix Continue IT NETWORK ARCHITECT Eliquis Fall precautions NPO, pending barium swallow Code status discussed with the family at bedside. Will switch to DNR Subjective Date/time seen: 01/03/24 07:29 Interval history: Today patient heparin has been stopped. We will restart apixaban 2.5 mg b.i.d. and aspirin 81 mg. Currently we are holding Plavix and we will discuss with the Neurology and make further decisions. Peg tube has been placed yesterday and currently the goal of 40 cc /hr Review of Systems Review of Systems: All systems rev
[2024-01-03] MEDS: ROSUVASTATIN 5 MG TABLET FEED TUBE (08:10)
[2024-01-03] MEDS: CALCIUM ACETATE 667 MG TABLET FEED TUBE ×3 (08:10→17:21)
[2024-01-03] MEDS: rOPINIRole HCL 1 MG TABLET BY MOUTH ×2 (08:10→20:37)
[2024-01-03] MEDS: APIXABAN 2.5 MG TABLET PO ×2 (08:10→20:37)
[2024-01-03] MEDS: ASPIRIN 81 MG CHEWABLE TABLET FEED TUBE (08:10)
[2024-01-03] MEDS: FLUTICASONE PROPIONATE 0.05% NA SPR 16 GM BTL (*BKC) 2 SPRAY NASAL (08:11)
[2024-01-03] MEDS: PANTOPRAZOLE SODIUM IV 40 MG VIAL IV PUSH (08:11)
[2024-01-03] MEDS: TOLNAFTATE 1% POWDER 45 GM BTL 1 APPLIC TOPICAL ×2 (08:12→20:38)
--- NOTE | 2024-01-03 08:35 | PC.NURSE ---
Patient taken to dialysis by bed. Respirations easy on room air. No distress noted. Report given to Osmany ROJAS.
--- NOTE | 2024-01-03 08:40 | PCOTNOTE ---
Attempted to see Patient for A.M. treatment session as requested. Patient is out of the room at this time, in dialysis. Will check back this afternoon.
--- NOTE | 2024-01-03 09:22 | PCPTNOTE ---
The patient treatment was not able to be completed at this time due to patient out of room for dialysis. Will plan to continue treatment per plan of care.
[2024-01-03] MEDS: UMECLIDINIUM BROMIDE 62.5 MCG ELLIPTA 1 PUFF INHALATION (09:35)
[2024-01-03] MEDS: FLUTICASONE/SALMETEROL 230-21 MCG INHALER 1 PUFF 2 PUFF INHALATION ×2 (09:35→21:00)
--- NOTE | 2024-01-03 11:57 | P.PNNP_ITS ---
Progress Note: A&P Assessment and Plan (1) End stage renal disease: Code(s): N18.6 - End stage renal disease Status: Acute Assessment and Plan: * HD today * continue T/T/S outpatient dialysis schedule * follow electrolytes, volume status, and clearance (2) Acute CVA (cerebrovascular accident): Code(s): I63.9 - Cerebral infarction, unspecified Status: Acute Assessment and Plan: * as noted by symptoms on evening of 12/24 and morning of 12/25 * confirmed by MRI of brain * CTA of head and neck noted as well * Neurology recommendations noted * off heparin gtt and started on Elliquis (3) Acute respiratory failure: Code(s): J96.00 - Acute respiratory failure, unspecified whether with hypoxia or hypercapnia Status: Resolved Assessment and Plan: * resolved * multifactorial: * COPD exacerbation * mild fluid overload/CHF * reactive airway disease/asthma * fluid removal with dialysis * supplemental oxygen - weaned off * nebulizer treatments PRN * follow respiratory status (4) Acute hyperkalemia: Code(s): E87.5 - Hyperkalemia Status: Resolved Assessment and Plan: * resolved * due to missed treatment on Sunday prior to admission * s/p medical management in ER * dialysis has corrected this issue * follow repeat levels (5) UTI (urinary tract infection): Code(s): N39.0 - Urinary tract infection, site not specified Status: Acute Assessment and Plan: * admission UA highly suggestive * follow culture data - urine culture with E.coli * on antibiotics (6) COPD (chronic obstructive pulmonary disease): Qualifiers: COPD type: unspecified COPD Qualified Code(s): J44.9 - Chronic obstructive pulmonary disease, unspecified Code(s): J44.9 - Chronic obstructive pulmonary disease, unspecified Status: Acute Assessment and Plan: * continue supportive therapy * follow respiratory status * see #3 (7) Fluid overload: Code(s): E87.70 - Fluid overload, unspecified Status: Acute Assessment and Plan: * known to have large fluid gains in between dialysis treatments * CXR with mild interstitial edema on admission * continue HD for electrolyte control and fluid removal * follow volume status (8) Hypertension: Code(s): I10 - Essential (primary) hypertension Status: Chronic Assessment and Plan: * reasonable control at this time * follow trend of hemodynamics (9) Type 2 diabetes mellitus with hyperglycemia: Qualifiers: Diabetes mellitus ad terminal makeup operator insulin use: with fpc use Qualified Code(s): E11.65 - Type 2 diabetes mellitus with hyperglycemia; Z79.4 - care home (current) use of insulin Code(s): E11.65 - Type 2 diabetes mellitus with hyperglycemia Status: Chronic Assessment and Plan: * follow accu-cheks * glycemic control per hospitalists Will continue to follow. Subjective Date/time seen: 01/03/24 11:57 Interval history: Follow-up for end stage renal disease on hemodialysis. Tolerating dialysis treatment at the time of my visit (seen on HD at 11:47AM); unable to see yesterday as was getting G-tube placed at that time but tolerated this procedure reasonably well; no real significant change in mentation -- regards examiner (looks at me) but remains aphasic/non-communicative; no other events overnight or earlier this AM. Exam Narrative: General: e
--- NOTE | 2024-01-03 11:57 | PM.PNNEP ---
Progress Note: A&P Assessment and Plan (1) End stage renal disease: Code(s): N18.6 - End stage renal disease Status: Acute Assessment and Plan: HD today continue T/T/S outpatient dialysis schedule follow electrolytes, volume status, and clearance (2) Acute CVA (cerebrovascular accident): Code(s): I63.9 - Cerebral infarction, unspecified Status: Acute Assessment and Plan: as noted by symptoms on evening of 12/24 and morning of 12/25 confirmed by MRI of brain CTA of head and neck noted as well Neurology recommendations noted off heparin gtt and started on Elliquis (3) Acute respiratory failure: Code(s): J96.00 - Acute respiratory failure, unspecified whether with hypoxia or hypercapnia Status: Resolved Assessment and Plan: resolved multifactorial: COPD exacerbation mild fluid overload/CHF reactive airway disease/asthma fluid removal with dialysis supplemental oxygen - weaned off nebulizer treatments PRN follow respiratory status (4) Acute hyperkalemia: Code(s): E87.5 - Hyperkalemia Status: Resolved Assessment and Plan: resolved due to missed treatment on Sunday prior to admission s/p medical management in ER dialysis has corrected this issue follow repeat levels (5) UTI (urinary tract infection): Code(s): N39.0 - Urinary tract infection, site not specified Status: Acute Assessment and Plan: admission UA highly suggestive follow culture data - urine culture with E.coli on antibiotics (6) COPD (chronic obstructive pulmonary disease): Qualifiers: COPD type: unspecified COPD Qualified Code(s): J44.9 - Chronic obstructive pulmonary disease, unspecified Code(s): J44.9 - Chronic obstructive pulmonary disease, unspecified Status: Acute Assessment and Plan: continue supportive therapy follow respiratory status see #3 (7) Fluid overload: Code(s): E87.70 - Fluid overload, unspecified Status: Acute Assessment and Plan: known to have large fluid gains in between dialysis treatments CXR with mild interstitial edema on admission continue HD for electrolyte control and fluid removal follow volume status (8) Hypertension: Code(s): I10 - Essential (primary) hypertension Status: Chronic Assessment and Plan: reasonable control at this time follow trend of hemodynamics (9) Type 2 diabetes mellitus with hyperglycemia: Qualifiers: Diabetes mellitus long wall shear operator insulin use: with long wall shear operator use Qualified Code(s): E11.65 - Type 2 diabetes mellitus with hyperglycemia; Z79.4 - 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 Subjective Date/time seen: 01/03/24 11:57 Interval history: Follow-up for end stage renal disease on hemodialysis. Tolerating dialysis treatment at the time of my visit (seen on HD at 11:47AM); unable to see yesterday as was getting G-tube placed at that time but tolerated this procedure reasonably well; no real significant change in mentation -- regards examiner (looks at me) but remains aphasic/non-communicative; no other events overnight or earlier this AM. Exam Narrative: General: elderly but WD/WN female in NAD Heart: normal S1 and S2; no rub Lungs: clear anteriorly; decreased at bases Abdomen: soft, nontender, nondistended, positive bowel sounds; + G-tube Extremities: no cyanosis or clubbing; no edema Skin: no rash Objective Data Vital Signs Vital Signs: Vital Signs Temp Pulse Resp BP Pulse Ox O2 Del Method FiO2 01/03/24 11:15 74 125/62 01/03/24 11:00 81 123/46 L 01/03/24 10:45 78 129/63 01/03/24 10:30 82 119/56 L 01/03/24 10
[2024-01-03 13:16] LABS: Glucose Point of Care 118 mg/dl (65-105)
--- NOTE | 2024-01-03 17:09 | WPDGIPROGNO ---
Progress Note: A&P Assessment and Plan (1) Left-sided cerebrovascular accident (CVA): Code(s): I63.9 - Cerebral infarction, unspecified Status: Acute Assessment and Plan: aphasia risk of aspiration, successful placement of g-tube and tolerating feeding will follow as needed (2) Aphasia: Code(s): R47.01 - Aphasia Status: Acute (3) ESRD on dialysis: Code(s): N18.6 - End stage renal disease; Z99.2 - Dependence on renal dialysis Status: Acute Assessment and Plan: per wellness instructor (4) Type 2 diabetes mellitus with hyperglycemia: Qualifiers: Diabetes mellitus prison insulin use: with prison use Qualified Code(s): E11.65 - Type 2 diabetes mellitus with hyperglycemia; Z79.4 - retirement (current) use of insulin Code(s): E11.65 - Type 2 diabetes mellitus with hyperglycemia Status: Chronic Subjective Date/time seen: 01/03/24 17:09 Interval history: tolerating tube feeding at 40 ml/h Review of Systems Review of Systems: All systems reviewed & are unremarkable except as noted in HPI and below Exam Narrative: GENERAL: Chronically ill appearing Const: General: comfortable and no acute distress Other: Follows commands intermittently, mixed aphasia HENMT: Mouth: Yes moist mucous membranes Eyes: Sclera: sclerae normal Pupils: Equal, round and reactive pupils present EOM: EOMs intact bilaterally Neck: Neck: supple Resp: Effort & Inspection: normal respiratory effort Auscultation: clear to auscultation bilaterally Cardio: Rate: regular rate Rhythm: regular rhythm Heart sounds: no gallops, no murmurs and no rubs GI: GI Palp: Yes Soft to palpation Auscultation: normal bowel sounds Other: + PEG in position, clean Skin: General skin exam: no rashes or lesions noted Neuro: Other: Does not participate with exam, aphasia Extrem: General: no edema Psych: Other: unable to assess Objective Data Vital Signs Vital Signs: Vital Signs - 24 hr 01/02/24 18:00 01/02/24 20:20 01/02/24 20:37 Temperature Pulse Rate 70 73 73 Respiratory Rate 20 16 Blood Pressure Pulse Oximetry 96 Oxygen Delivery Room Air Fraction of Inspired Oxygen 21 01/02/24 20:30 01/02/24 20:53 01/02/24 22:56 Temperature Pulse Rate 71 74 71 Respiratory Rate 16 14 Blood Pressure Pulse Oximetry 96 Oxygen Delivery Autopap Fraction of Inspired Oxygen 01/02/24 20:00 01/02/24 20:00 01/02/24 20:00 Temperature 98.3 F Pulse Rate 63 63 Respiratory Rate 15 Blood Pressure 158/74 H Pulse Oximetry 90 90 Oxygen Delivery Room Air Fraction of Inspired Oxygen 01/02/24 22:00 01/03/24 00:00 01/03/24 00:00 Temperature Pulse Rate 64 71 Respiratory Rate Blood Pressure Pulse Oximetry 93 Oxygen Delivery Room Air Fraction of Inspired Oxygen 01/03/24 00:00 01/03/24 02:41 01/03/24 02:48 Temperature 98.6 F Pulse Rate 71 73 70 Respiratory Rate 17 13 16 Blood Pressure 164/53 H Pulse Oximetry 98 Oxygen Delivery Fraction of Inspired Oxygen 01/03/24 02:00 01/03/24 04:00 01/03/24 04:00 Temperature 98.5 F Pulse Rate 68 71 Respiratory Rate 13 Blood Pressure 154/57 H Pulse Oximetry 95 95 Oxygen Delivery Room Air Fraction of Inspired Oxygen 01/03/24 04:00 01/03/24 06:55 01/03/24 06:55 Temperature Pulse Rate 71 64 64 Respiratory Rate 16 16 Blood Pressure Pulse Oximetry 97 Oxygen Delivery Room Air Fraction of Inspired Oxygen 01/03/24 07:05 01/03/24 06:00 01/03/24 08:40 Temperature 98.3 F Pulse Rate 66 73 70 Respiratory Rate 16 14 Blood Pressure 128/47 L Pulse Oximetry Oxygen Delivery Fraction of Inspired Oxygen 01/03/24 08:53 01/03/24 09:35 01/03/24 09:00 Temperature Pulse Rate 76 78 77 Respiratory Rate 18 Blood Pressure 169/67 H 149/63 H Pulse Oximetry Oxygen Delivery Fraction o
[2024-01-03] MEDS: INSULIN HUMAN REGULAR (*BKC) 100 UNITS/ML SUB-Q (17:21)
[2024-01-03 17:33] LABS: Glucose Point of Care 238 mg/dl (65-105)
[2024-01-03] MEDS: INSULIN GLARGINE (*BKC) 100 UNITS/ML 20 UNITS SUB-Q (20:37)
[2024-01-03] MEDS: AMIODARONE HCL 200 MG TABLET FEED TUBE (20:37)
[2024-01-03 21:37] LABS: Glucose Point of Care 176 mg/dl (65-105)
[2024-01-04] VITALS (24 sets, daily range): BP systolic 109–158; BP diastolic 46–81; PULSE 64–96; RESP 12–19; TEMP 37.2–37.5; O2SAT 99–100
[2024-01-04 00:33] LABS: Glucose Point of Care 169 mg/dl (65-105)
[2024-01-04] MEDS: INSULIN ASPART (*BKC) 100 UNITS/ML 8 UNITS SUB-Q ×4 (00:46→17:08)
--- NOTE | 2024-01-04 01:14 | PM.EVENT ---
Event Note Event Note Event Note: 01/03/2024 at 23:30 Nursing staff contacted me and I came in for my shift that the patient's pupils had been on equal at the beginning of their shift on initial assessment. The patient had not had a breathing treatment for 6 hours prior. Patient's right eye was but 2 mm bigger than her left. The patient's expressive aphasia was stable. The patient has not been able to open mouth and cooperate was sticking out her tongue for the last several days of this is unchanged. The patient does have some neglect to her right side but has been able to move the arm from the shoulder and has 2-3 cash applications representative strength of the right hand. She has been able to cross her legs and fold her right leg over her left knee to full offer sock in is been able to use her feet to pull her contralateral sock off. It is difficult to assess sensation due to the patient's expressive deficits but appears stable patient has stable right facial droop. The patient had been sent for stat noncontrast CT of the brain around 22:00 which demonstrated large infarct in the expected distribution of left middle cerebral artery with worsening compared to 12/29/2023 likely acute or subacute with old infarcts in the johann and cerebellum. I called Neurology at [facility] and talked to a doctor Darvin who recommended repeat CTA of the brain and carotids to rule out new large vessel occlusion. CTA was performed. Dr. Rowell from stat read contacted me with the result. He stated the patient had occlusion at the distal M1 or proximal M2 at an area of bifurcation. Unfortunately he did not receive the comparison studies of the prior MRI of the brain or the prior CTA. He initially felt that there was an acute component of a changes on the patient's imaging but upon further discussion he stated given what I had described on the patient's prior CTA this could certainly be evolutionary changes. He did not see any acute area of acute hemorrhagic conversion. He stated he did not have time to discuss the reports from the patient's prior MRI as he had other stroke cases and imaging to review. He did not feel that there is any new large vessel occlusions. Dr. Boston recommended that given the large area of stroke bed infarct that it would actually be advisable to hold the patient's Eliquis for 4-7 days post acute neurologic changes. As this would be that time. When the patient would be most high risk of hemorrhagic conversion. He also stated that there would be no clinical benefit to the addition low-dose aspirin in the setting with patient that is already on Eliquis. He stated he would only continue the 81 mg aspirin if the patient's Eliquis was placed on hold. He stated in patient's similar to this patient's situation that they would usually recommend holding the Eliquis up to 7 days. He stated that once the Eliquis was resumed that the 81 mg aspirin should be discontinued. He stated that long-term Eliquis would help prevent recurrent stroke but in the short term the risk of hemorrhagic conversion is much higher than the risk of stroke especially given that the patient is in sinus rhythm. By the time I had finished my discussion with [facility] Neurology and went to evaluate the patient the patient's pupils were back to being equal. The patient had no other acute changes in her neurologic exam. The neurologist from [facility] also recommended frequent neuro checks. Neuro checks were changed q.2 hours. The patient had already received her evening Eliquis. Eliquis has been placed on hold until we can get official radiologic interpretation the patient is repeat CTA. If there is no acute component to the change in the patient's imaging studies and no changes in patient's neurologic status we may need to resume the patient's Eliquis. If there is a acute component we may need to call Neurology back and get further recommendations. A patient's case was discussed with the patient and her son at bedside.
[2024-01-04] MEDS: IPRATROPIUM 0.5 MG/ALBUTEROL SULFATE 2.5 MG AMPUL.NEB 3 ML INHALATION ×4 (02:10→20:23)
[2024-01-04] MEDS: PIPERACILLIN/TAZ 2.25G/NS 50ML 2.25 GM/50 ML BAG IVPB ×2 (05:53→13:14)
[2024-01-04 05:54] LABS: Glucose Point of Care 206 mg/dl (65-105)
[2024-01-04] MEDS: LEVOTHYROXINE SODIUM INJ 100 MCG/5 ML VIAL 87.5 MCG IV PUSH (05:54)
[2024-01-04] MEDS: INSULIN HUMAN REGULAR (*BKC) 100 UNITS/ML SUB-Q (05:54)
[2024-01-04] MEDS: FLUTICASONE/SALMETEROL 230-21 MCG INHALER 1 PUFF 2 PUFF INHALATION ×2 (08:00→20:23)
[2024-01-04] MEDS: UMECLIDINIUM BROMIDE 62.5 MCG ELLIPTA 1 PUFF INHALATION (08:00)
[2024-01-04] MEDS: ROSUVASTATIN 5 MG TABLET FEED TUBE (08:29)
[2024-01-04] MEDS: TOLNAFTATE 1% POWDER 45 GM BTL 1 APPLIC TOPICAL ×2 (08:29→21:31)
[2024-01-04] MEDS: FLUTICASONE PROPIONATE 0.05% NA SPR 16 GM BTL (*BKC) 2 SPRAY NASAL (08:29)
[2024-01-04] MEDS: ASPIRIN 81 MG CHEWABLE TABLET FEED TUBE (08:29)
[2024-01-04] MEDS: CALCIUM ACETATE 667 MG TABLET FEED TUBE ×3 (08:29→17:08)
[2024-01-04] MEDS: rOPINIRole HCL 1 MG TABLET BY MOUTH ×2 (08:29→21:27)
[2024-01-04] MEDS: PANTOPRAZOLE SODIUM IV 40 MG VIAL IV PUSH (08:29)
[2024-01-04 09:04] LABS: Hematocrit 40.8 % (37.0-47.0); Hemoglobin 12.6 g/dL (12.0-15.0); Mean Corpuscular HGB Conc 30.9 g/dl (32-36); Mean Corpuscular Hemoglobin 32.9 pg (26-34); Mean Corpuscular Volume 106.5 fl (80-100); Platelet Count Result 262 k/mm3 (150-375); Red Blood Count 3.83 M/mm3 (4.2-5.4); Red Cell Distribution Width 13.8 % (11.5-14.5)
[2024-01-04 09:29] LABS: Alanine Aminotransferase 19 U/L (6-35); Alkaline Phosphatase 92 U/L (38-126); Anion Gap 20 mmol/L (4-12); Aspartate Amino Transferase 49 U/L (14-36); Bilirubin,Total 0.8 mg/dL (0.2-1.3); Blood Urea Nitrogen 28 mg/dL (7-17); Calcium 9.9 mg/dL (8.4-10.2); Carbon Dioxide 18 mmol/L (22-30); Chloride 100 mmol/L (98-107); Estimated CRCL calculation 10 ml/min; Estimated Glomerular Filt Rate 8; Glucose 196 mg/dL (65-110); Potassium 4.2 mmol/L (3.4-5.0); Sodium 138 mmol/L (137-145)
--- NOTE | 2024-01-04 10:12 | PM.PNNEP ---
Progress Note: A&P Assessment and Plan (1) End stage renal disease: Code(s): N18.6 - End stage renal disease Status: Acute Assessment and Plan: HD tomorrow continue T/T/S outpatient dialysis schedule while hospitalized follow electrolytes, volume status, and clearance (2) Acute CVA (cerebrovascular accident): Code(s): I63.9 - Cerebral infarction, unspecified Status: Acute Assessment and Plan: as noted by symptoms on evening of 12/24 and morning of 12/25 confirmed by MRI of brain CTA of head and neck noted repeat CTA of head and neck (on 01/03) reviewed Neurology recommendations noted continue supportive therapy (3) Acute respiratory failure: Code(s): J96.00 - Acute respiratory failure, unspecified whether with hypoxia or hypercapnia Status: Resolved Assessment and Plan: resolved multifactorial: COPD exacerbation mild fluid overload/CHF reactive airway disease/asthma fluid removal with dialysis supplemental oxygen - weaned off nebulizer treatments PRN follow respiratory status (4) Acute hyperkalemia: Code(s): E87.5 - Hyperkalemia Status: Resolved Assessment and Plan: resolved due to missed treatment on Sunday prior to admission s/p medical management in ER dialysis has corrected this issue follow repeat levels (5) UTI (urinary tract infection): Code(s): N39.0 - Urinary tract infection, site not specified Status: Acute Assessment and Plan: admission UA highly suggestive follow culture data - urine culture with E.coli on antibiotics (6) COPD (chronic obstructive pulmonary disease): Qualifiers: COPD type: unspecified COPD Qualified Code(s): J44.9 - Chronic obstructive pulmonary disease, unspecified Code(s): J44.9 - Chronic obstructive pulmonary disease, unspecified Status: Acute Assessment and Plan: continue supportive therapy follow respiratory status see #3 (7) Fluid overload: Code(s): E87.70 - Fluid overload, unspecified Status: Acute Assessment and Plan: known to have large fluid gains in between dialysis treatments CXR with mild interstitial edema on admission continue HD for electrolyte control and fluid removal follow volume status (8) Hypertension: Code(s): I10 - Essential (primary) hypertension Status: Chronic Assessment and Plan: reasonable control at this time follow trend of hemodynamics (9) Type 2 diabetes mellitus with hyperglycemia: Qualifiers: Diabetes mellitus [facility] insulin use: with penitentiary use Qualified Code(s): E11.65 - Type 2 diabetes mellitus with hyperglycemia; 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 Subjective Date/time seen: 01/04/24 10:12 Interval history: Follow-up for end stage renal disease on hemodialysis. Tolerated dialysis treatment yesterday without any issues or problems; appears to be tolerating tube feeds as well following PEG tube placement; issues/events noted overnight with subsequent imaging noted as detailed by Dr. Jaimes; she remains aphasic but able to follow simple commands. Exam Narrative: General: elderly but WD/WN female in NAD Heart: normal S1 and S2; no rub Lungs: clear anteriorly; decreased at bases Abdomen: soft, nontender, nondistended, positive bowel sounds; + G-tube Extremities: no cyanosis or clubbing; no edema Skin: no nodules Objective Data Vital Signs Vital Signs: Vital Signs Temp Pulse Resp BP Pulse Ox O2 Del Method 01/04/24 10:00 87 01/04/24 08:00 70 01/04/24 08:00 99.5 F 71 19 158/75 H 100 01/04/24 08:11 72 14 01/04/24 08:02 72 14 01/03
--- NOTE | 2024-01-04 10:12 | P.PNNP_ITS ---
Progress Note: A&P Assessment and Plan (1) End stage renal disease: Code(s): N18.6 - End stage renal disease Status: Acute Assessment and Plan: * HD tomorrow * continue T/T/S outpatient dialysis schedule while hospitalized * follow electrolytes, volume status, and clearance (2) Acute CVA (cerebrovascular accident): Code(s): I63.9 - Cerebral infarction, unspecified Status: Acute Assessment and Plan: * as noted by symptoms on evening of 12/24 and morning of 12/25 * confirmed by MRI of brain * CTA of head and neck noted * repeat CTA of head and neck (on 01/03) reviewed * Neurology recommendations noted * continue supportive therapy (3) Acute respiratory failure: Code(s): J96.00 - Acute respiratory failure, unspecified whether with hypoxia or hypercapnia Status: Resolved Assessment and Plan: * resolved * multifactorial: * COPD exacerbation * mild fluid overload/CHF * reactive airway disease/asthma * fluid removal with dialysis * supplemental oxygen - weaned off * nebulizer treatments PRN * follow respiratory status (4) Acute hyperkalemia: Code(s): E87.5 - Hyperkalemia Status: Resolved Assessment and Plan: * resolved * due to missed treatment on Sunday prior to admission * s/p medical management in ER * dialysis has corrected this issue * follow repeat levels (5) UTI (urinary tract infection): Code(s): N39.0 - Urinary tract infection, site not specified Status: Acute Assessment and Plan: * admission UA highly suggestive * follow culture data - urine culture with E.coli * on antibiotics (6) COPD (chronic obstructive pulmonary disease): Qualifiers: COPD type: unspecified COPD Qualified Code(s): J44.9 - Chronic obstructive pulmonary disease, unspecified Code(s): J44.9 - Chronic obstructive pulmonary disease, unspecified Status: Acute Assessment and Plan: * continue supportive therapy * follow respiratory status * see #3 (7) Fluid overload: Code(s): E87.70 - Fluid overload, unspecified Status: Acute Assessment and Plan: * known to have large fluid gains in between dialysis treatments * CXR with mild interstitial edema on admission * continue HD for electrolyte control and fluid removal * follow volume status (8) Hypertension: Code(s): I10 - Essential (primary) hypertension Status: Chronic Assessment and Plan: * reasonable control at this time * follow trend of hemodynamics (9) Type 2 diabetes mellitus with hyperglycemia: Qualifiers: Diabetes mellitus on site nurse insulin use: with on site nurse use Qualified Code(s): E11.65 - Type 2 diabetes mellitus with hyperglycemia; 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 Subjective Date/time seen: 01/04/24 10:12 Interval history: Follow-up for end stage renal disease on hemodialysis. Tolerated dialysis treatment yesterday without any issues or problems; appears to be tolerating tube feeds as well following PEG tube placement; issues/events noted overnight with subsequent imaging noted as detailed by Dr. Jaimes; she remains aphasic but able to follow simple commands. Exam Narrative: General: elderly b
[2024-01-04 12:18] LABS: Glucose Point of Care 197 mg/dl (65-105)
--- NOTE | 2024-01-04 13:38 | PCNFU ---
Nutrition Follow-Up Complete: Swallowing Difficulties as related to CVA as evidenced by failed MBS/tube feedings. Goal: Meet estimated nutritional needs Patient is progressing towards goal. We will continue current goal. Pt current nutrition is Nepro at 40 ml/hr. Nutrition recommendation: Banatrol Plus BID for stool bulking. Last recorded weight is 101.7 kg, up from 101.8 kg. Bowel Motility: +BM reported 01/03: + 7 stools. Labs Reviewed: Glu 144, BUN 39, GFR 5, Cr 7.8, Hct 35.5,Hgb 10.8 Meds Noted:Lantus, Eliquis, Protonix, Zosyn, Phoslo. Skin: WNL Additional Notes: Patient remains on a G tube feedings of Nepro at 40 ml/hr and tolerating per nursing. Flush 30 ml q 4 hours at this time, will monitor Na for any flush rate changes. Tube feedings providing 1584 kcal/72 gm protein/ 640 ml water. Meeting 100% kcal and protein needs. Nursing states to multiple loose stools. Spoke with Hospitalist today regarding Banatrol Plus for stool bulking agent. MD orders to add. Agree with diet orders. Will monitor weight, labs, skin, tube feedings, meds every Sunday and Sunday.
--- NOTE | 2024-01-04 15:48 | PM.IMPN ---
Progress Note: A&P Assessment and Plan (1) Hyperkalemia: Code(s): E87.5 - Hyperkalemia Status: Acute (2) Diabetes mellitus with hyperglycemia: Code(s): E11.65 - Type 2 diabetes mellitus with hyperglycemia Status: Acute (3) Hypoxia: Code(s): R09.02 - Hypoxemia Status: Acute (4) Pseudohyponatremia: Code(s): R79.89 - Other specified abnormal findings of blood chemistry Status: Acute (5) UTI symptoms: Code(s): R39.9 - Unspecified symptoms and signs involving the genitourinary system Status: Acute (6) Leukocytosis: Code(s): D72.829 - Elevated white blood cell count, unspecified Status: Acute (7) Acute on chronic heart failure: Code(s): I50.9 - Heart failure, unspecified Status: Acute (8) Aphasia: Code(s): R47.01 - Aphasia Status: Acute Plan ED Course:72-year-old female with a history of type 2 diabetes mellitus with long-term use of insulin, hypertension, hyperlipidemia, ESRD on dialysis Sunday, CAD, diastolic CHF, atrial fibrillation on apixaban, restless leg syndrome, hypothyroidism, depression and anxiety, RAINA, peripheral neuropathy, history of cerebellar CVA remote presented with imbalance, GERD with Gongora's, history of esophageal stricture, COPD, peripheral neuropathy, history of DVT. She present to the ER for shortness of breath and generalized weakness. In the ER patient appeared weak on presentation. Her potassium was high at 7 received calcium gluconate and high-dose albuterol therapy. Dextrose and insulin. Laboratory evaluation showed WBC count 10.2. Urinalysis shows positive leukocyte esterase greater than 100 WBCs cells. No Bacteria. History has been inconsistent history. Unfortunately she is a poor historian The patient herself reports she missed Lasix, other family member has reported she missed dialysis. Hyperglycemia noted with blood sugar up to 572 on arrival to the ED. patient was also wheezy on presentation. She was started on ceftriaxone for UTI. She was admitted for further treatment. #CVA -CTA and CT performed due to new worsening Sx and reviewed -CTA 01/03 :Extensive hypodensity in the left MCA distribution is compatible with evolving acute infarct. No intracranial hemorrhage evident. -CT done on 01/02: Large infarct in the expected distribution of left middle cerebral artery with worsening from 12/29/2023, likely acute or subacute -01/03 :Today I called [facility] and had an extensive conversation with and explained the new findings of the CTA. With the possibility of heriniation of the brain, midline shift or hemorrhagic conversion in near future and with no Neurology in the backup we recommended on transferring the patient to be [facility]. reviewed all the images and called me back saying at this point the patient has received all the appropriate care and imaging studies as well. In the light of worsening symptoms including herniation of the brain or midline shift or other changes in her condition advised to call back . For now we agreed patient being in [facility] and continue the current medical management. -Sometime in the evening of 12/24 developed aphasia. -CT head was performed which demonstrated or infarct in the left cerebellum and bilateral basal ganglia. She was out of the window for tPA. . She was already on apixaban as well. Neurology was consulted. MRI brain was performed on 12/26/2023 which documented acute infarct in the left hippocampus left posterior frontal lobe with no hemorrhage. Aspirin Plavix added. Echo ordered which has done yet to uncooperativeness. Eventually CTA was done 12/27/2023 which revealed complete occlusion of left M2 segment. Carotid Doppler with less than 50% stenosis in VEE and LICA. -With her stroke she is having aphasia as well as right-sided weakness dysphagia. Speech therapy PT OT on board. -s/p PEG tube placement -Heparin
[2024-01-04 16:58] LABS: Glucose Point of Care 181 mg/dl (65-105)
[2024-01-04] MEDS: CEFEPIME 1 GM/NS 50 ML 1 GM/50 ML BAG IVPB (17:08)
[2024-01-04] MEDS: AMIODARONE HCL 200 MG TABLET FEED TUBE (21:27)
[2024-01-04] MEDS: INSULIN GLARGINE (*BKC) 100 UNITS/ML 20 UNITS SUB-Q (21:31)
[2024-01-04 21:53] LABS: Glucose Point of Care 156 mg/dl (65-105)
[2024-01-05] VITALS (34 sets, daily range): BP systolic 73–187; BP diastolic 27–113; PULSE 63–87; RESP 14–17; TEMP 36.3–37.2; O2SAT 97–100
[2024-01-05] MEDS: INSULIN ASPART (*BKC) 100 UNITS/ML 8 UNITS SUB-Q ×4 (01:32→17:16)
[2024-01-05] MEDS: INSULIN HUMAN REGULAR (*BKC) 100 UNITS/ML SUB-Q ×2 (01:32→05:29)
[2024-01-05 02:00] LABS: Glucose Point of Care 239 mg/dl (65-105)
[2024-01-05 04:36] LABS: Basophils Absolute Auto 0.1 K/mm3 (0.0-0.1); Basophils Percent Auto 0.7 % (0.2-1.2); Eosinophils Absolute Auto 0.5 K/mm3 (0-0.3); Eosinophils Percent Auto 2.7 % (0-4.4); Hematocrit 36.2 % (37.0-47.0); Hemoglobin 11.8 g/dL (12.0-15.0); Immature Granulocyte Absolute 0.36 K/mm3 (0.00-0.031); Immature Granulocyte Percent A 1.8 % (0-0.5); Lymphocytes Absolute Auto 1.58 K/mm3 (0.9-3.2); Mean Corpuscular HGB Conc 32.6 g/dl (32-36); Mean Corpuscular Hemoglobin 32.6 pg (26-34); Monocytes Absolute Auto 1.4 K/mm3 (0.1-0.6); Neutrophils Absolute Auto 15.7 K/mm3 (1.3-6.7); Neutrophils Percent Auto 79.8 % (45.5-73.1); Platelet Count Result 288 k/mm3 (150-375); Red Blood Count 3.62 M/mm3 (4.2-5.4); Red Cell Distribution Width 13.8 % (11.5-14.5); White Blood Count 19.7 K/mm3 (4.5-10.0)
[2024-01-05 04:57] LABS: Alanine Aminotransferase 15 U/L (6-35); Albumin Level 4.1 g/dL (3.5-5.1); Alkaline Phosphatase 91 U/L (38-126); Anion Gap 14 mmol/L (4-12); Aspartate Amino Transferase 33 U/L (14-36); Bilirubin,Total 0.4 mg/dL (0.2-1.3); Blood Urea Nitrogen 40 mg/dL (7-17); Calcium 10.1 mg/dL (8.4-10.2); Carbon Dioxide 29 mmol/L (22-30); Chloride 95 mmol/L (98-107); Estimated CRCL calculation 7 ml/min; Estimated Glomerular Filt Rate 5; Glucose 319 mg/dL (65-110); Magnesium 2.2 mg/dL (1.6-2.3); Phosphorus 3.3 mg/dL (2.5-4.5); Potassium 3.8 mmol/L (3.4-5.0); Sodium 138 mmol/L (137-145)
[2024-01-05] MEDS: LEVOTHYROXINE SODIUM INJ 100 MCG/5 ML VIAL 87.5 MCG IV PUSH (05:30)
[2024-01-05 05:44] LABS: Glucose Point of Care 293 mg/dl (65-105)
[2024-01-05 08:13] LABS: Glucose Point of Care 239 mg/dl (65-105)
[2024-01-05] MEDS: IPRATROPIUM 0.5 MG/ALBUTEROL SULFATE 2.5 MG AMPUL.NEB 3 ML INHALATION ×2 (08:15→13:40)
[2024-01-05] MEDS: FLUTICASONE/SALMETEROL 230-21 MCG INHALER 1 PUFF 2 PUFF INHALATION (08:15)
[2024-01-05] MEDS: UMECLIDINIUM BROMIDE 62.5 MCG ELLIPTA 1 PUFF INHALATION (08:25)
--- NOTE | 2024-01-05 09:36 | PM.PNNEP ---
Progress Note: A&P Assessment and Plan (1) End stage renal disease: Code(s): N18.6 - End stage renal disease Status: Acute Assessment and Plan: HD today continue T/T/S outpatient dialysis schedule while hospitalized follow electrolytes, volume status, and clearance (2) Acute CVA (cerebrovascular accident): Code(s): I63.9 - Cerebral infarction, unspecified Status: Acute Assessment and Plan: as noted by symptoms on evening of 12/24 and morning of 12/25 confirmed by MRI of brain CTA of head and neck noted repeat CTA of head and neck (on 01/03) reviewed Neurology recommendations noted continue supportive therapy (3) Acute respiratory failure: Code(s): J96.00 - Acute respiratory failure, unspecified whether with hypoxia or hypercapnia Status: Resolved Assessment and Plan: resolved multifactorial: COPD exacerbation mild fluid overload/CHF reactive airway disease/asthma fluid removal with dialysis supplemental oxygen - weaned off nebulizer treatments PRN follow respiratory status (4) Acute hyperkalemia: Code(s): E87.5 - Hyperkalemia Status: Resolved Assessment and Plan: resolved due to missed treatment on Sunday prior to admission s/p medical management in ER dialysis has corrected this issue follow repeat levels (5) UTI (urinary tract infection): Code(s): N39.0 - Urinary tract infection, site not specified Status: Acute Assessment and Plan: admission UA highly suggestive follow culture data - urine culture with E.coli on antibiotics (6) COPD (chronic obstructive pulmonary disease): Qualifiers: COPD type: unspecified COPD Qualified Code(s): J44.9 - Chronic obstructive pulmonary disease, unspecified Code(s): J44.9 - Chronic obstructive pulmonary disease, unspecified Status: Acute Assessment and Plan: continue supportive therapy follow respiratory status see #3 (7) Fluid overload: Code(s): E87.70 - Fluid overload, unspecified Status: Resolved Assessment and Plan: known to have large fluid gains in between dialysis treatments CXR with mild interstitial edema on admission continue HD for electrolyte control and fluid removal follow volume status (8) Hypertension: Code(s): I10 - Essential (primary) hypertension Status: Chronic Assessment and Plan: reasonable control at this time follow trend of hemodynamics (9) Type 2 diabetes mellitus with hyperglycemia: Qualifiers: Diabetes mellitus [facility] insulin use: with [facility] use Qualified Code(s): E11.65 - Type 2 diabetes mellitus with hyperglycemia; 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 Subjective Date/time seen: 01/05/24 09:36 Interval history: Follow-up for end stage renal disease on hemodialysis. Tolerating dialysis treatment at the time of my visit without any issues or problems (seen on HD at 9:25AM); mentation/neurological status appears stable -- aphasic but follows some simple commands; no issues/events overnight or earlier this morning; hemodynamically stable without any breathing/respiratory issues. Exam Narrative: General: elderly but WD/WN female in NAD Heart: normal S1 and S2; no rub Lungs: clear anteriorly; decreased at bases Abdomen: soft, nontender, nondistended, positive bowel sounds; + G-tube Extremities: no cyanosis or clubbing; no edema Skin: warm and dry Objective Data Vital Signs Vital Signs: Vital Signs Temp Pulse Resp BP Pulse Ox O2 Del Method FiO2 01/05/24 14:00 83 01/05/24 13:53 78 14 01/05/24 13:40 76 14 01/05/24 12:00 97.7 F 79 16 109/48 L
--- NOTE | 2024-01-05 09:36 | P.PNNP_ITS ---
Progress Note: A&P Assessment and Plan (1) End stage renal disease: Code(s): N18.6 - End stage renal disease Status: Acute Assessment and Plan: * HD today * continue T/T/S outpatient dialysis schedule while hospitalized * follow electrolytes, volume status, and clearance (2) Acute CVA (cerebrovascular accident): Code(s): I63.9 - Cerebral infarction, unspecified Status: Acute Assessment and Plan: * as noted by symptoms on evening of 12/24 and morning of 12/25 * confirmed by MRI of brain * CTA of head and neck noted * repeat CTA of head and neck (on 01/03) reviewed * Neurology recommendations noted * continue supportive therapy (3) Acute respiratory failure: Code(s): J96.00 - Acute respiratory failure, unspecified whether with hypoxia or hypercapnia Status: Resolved Assessment and Plan: * resolved * multifactorial: * COPD exacerbation * mild fluid overload/CHF * reactive airway disease/asthma * fluid removal with dialysis * supplemental oxygen - weaned off * nebulizer treatments PRN * follow respiratory status (4) Acute hyperkalemia: Code(s): E87.5 - Hyperkalemia Status: Resolved Assessment and Plan: * resolved * due to missed treatment on Sunday prior to admission * s/p medical management in ER * dialysis has corrected this issue * follow repeat levels (5) UTI (urinary tract infection): Code(s): N39.0 - Urinary tract infection, site not specified Status: Acute Assessment and Plan: * admission UA highly suggestive * follow culture data - urine culture with E.coli * on antibiotics (6) COPD (chronic obstructive pulmonary disease): Qualifiers: COPD type: unspecified COPD Qualified Code(s): J44.9 - Chronic obstructive pulmonary disease, unspecified Code(s): J44.9 - Chronic obstructive pulmonary disease, unspecified Status: Acute Assessment and Plan: * continue supportive therapy * follow respiratory status * see #3 (7) Fluid overload: Code(s): E87.70 - Fluid overload, unspecified Status: Resolved Assessment and Plan: * known to have large fluid gains in between dialysis treatments * CXR with mild interstitial edema on admission * continue HD for electrolyte control and fluid removal * follow volume status (8) Hypertension: Code(s): I10 - Essential (primary) hypertension Status: Chronic Assessment and Plan: * reasonable control at this time * follow trend of hemodynamics (9) Type 2 diabetes mellitus with hyperglycemia: Qualifiers: Diabetes mellitus exterminator insulin use: with exterminator use Qualified Code(s): E11.65 - Type 2 diabetes mellitus with hyperglycemia; Z79.4 - exterminator (current) use of insulin Code(s): E11.65 - Type 2 diabetes mellitus with hyperglycemia Status: Chronic Assessment and Plan: * follow accu-cheks * glycemic control per hospitalists Will continue to follow. Subjective Date/time seen: 01/05/24 09:36 Interval history: Follow-up for end stage renal disease on hemodialysis. Tolerating dialysis treatment at the time of my visit without any issues or problems (seen on HD at 9:25AM); mentation/neurological status appears stable -- aphasic but follows some simple commands; no issues/events overnight or earlier this morning; hemodynamically stable without any breathing/respiratory issues. Exam Narrative:
--- NOTE | 2024-01-05 10:39 | PM.IMPN ---
Progress Note: A&P Assessment and Plan (1) Hyperkalemia: Code(s): E87.5 - Hyperkalemia Status: Acute (2) Diabetes mellitus with hyperglycemia: Code(s): E11.65 - Type 2 diabetes mellitus with hyperglycemia Status: Acute (3) Hypoxia: Code(s): R09.02 - Hypoxemia Status: Acute (4) Pseudohyponatremia: Code(s): R79.89 - Other specified abnormal findings of blood chemistry Status: Acute (5) UTI symptoms: Code(s): R39.9 - Unspecified symptoms and signs involving the genitourinary system Status: Acute (6) Leukocytosis: Code(s): D72.829 - Elevated white blood cell count, unspecified Status: Acute (7) Acute on chronic heart failure: Code(s): I50.9 - Heart failure, unspecified Status: Acute (8) Aphasia: Code(s): R47.01 - Aphasia Status: Acute Plan ED Course:72-year-old female with a history of type 2 diabetes mellitus with long-term use of insulin, hypertension, hyperlipidemia, ESRD on dialysis Sunday, CAD, diastolic CHF, atrial fibrillation on apixaban, restless leg syndrome, hypothyroidism, depression and anxiety, RAINA, peripheral neuropathy, history of cerebellar CVA remote presented with imbalance, GERD with Gongora's, history of esophageal stricture, COPD, peripheral neuropathy, history of DVT. She present to the ER for shortness of breath and generalized weakness. In the ER patient appeared weak on presentation. Her potassium was high at 7 received calcium gluconate and high-dose albuterol therapy. Dextrose and insulin. Laboratory evaluation showed WBC count 10.2. Urinalysis shows positive leukocyte esterase greater than 100 WBCs cells. No Bacteria. History has been inconsistent history. Unfortunately she is a poor historian The patient herself reports she missed Lasix, other family member has reported she missed dialysis. Hyperglycemia noted with blood sugar up to 572 on arrival to the ED. patient was also wheezy on presentation. She was started on ceftriaxone for UTI. She was admitted for further treatment. #CVA -Sometime in the evening of 12/24 developed aphasia. -CT head was performed which demonstrated or infarct in the left cerebellum and bilateral basal ganglia. She was out of the window for tPA. She was already on apixaban as well. Neurology was consulted. MRI brain was performed on 12/26/2023 which documented acute infarct in the left hippocampus left posterior frontal lobe with no hemorrhage. Aspirin Plavix added. Echo ordered which has done yet to uncooperativeness. Eventually CTA was done 12/27/2023 which revealed complete occlusion of left M2 segment. Carotid Doppler with less than 50% stenosis in VEE and LICA. -With her stroke she is having aphasia as well as right-sided weakness dysphagia. Speech therapy PT OT on board. -Again on 01/02 night she developed worsening sx and CTA and CT performed due to new worsening Sx -CTA 01/03 :Extensive hypodensity in the left MCA distribution is compatible with evolving acute infarct. No intracranial hemorrhage evident. -CT done on 01/02: Large infarct in the expected distribution of left middle cerebral artery with worsening from 12/29/2023, likely acute or subacute -01/02 : Nocturist called [facility] (Please refer to cross cover note on 01/[address] Boston from [facility] recommended that given the large area of stroke bed infarct that it would actually be advisable to hold the patient's Eliquis for 4-7 days post acute neurologic changes. -01/03 :Today I called [facility] again as continuation of previous conversation and had an extensive conversation with and explained the new findings of the CTA. With the possibility of herniation of the brain, midline shift or hemorrhagic conversion in near future and with no Neurology in the backup we recommended on transferring the patient to be [facility]. reviewed all the images and called me back saying
[2024-01-05] MEDS: SODIUM CHLORIDE 0.9% IV 1,000 ML 999 ML IV CONT (11:21)
[2024-01-05] MEDS: ALBUMIN HUMAN 25% 12.5 GM/50ML 50 ML 999 GM (11:35)
[2024-01-05] MEDS: CALCIUM ACETATE 667 MG TABLET FEED TUBE ×2 (13:13→17:04)
[2024-01-05] MEDS: ASPIRIN 81 MG CHEWABLE TABLET FEED TUBE (13:13)
[2024-01-05] MEDS: rOPINIRole HCL 1 MG TABLET BY MOUTH ×2 (13:13→20:23)
[2024-01-05] MEDS: ROSUVASTATIN 5 MG TABLET FEED TUBE (13:13)
[2024-01-05] MEDS: PANTOPRAZOLE SODIUM IV 40 MG VIAL IV PUSH (13:13)
[2024-01-05] MEDS: TOLNAFTATE 1% POWDER 45 GM BTL 1 APPLIC TOPICAL ×2 (13:14→20:24)
[2024-01-05 13:17] LABS: Glucose Point of Care 166 mg/dl (65-105)
[2024-01-05] MEDS: CEFEPIME 1 GM/NS 50 ML 1 GM/50 ML BAG IVPB (17:09)
[2024-01-05 17:16] LABS: Glucose Point of Care 217 mg/dl (65-105)
[2024-01-05] MEDS: INSULIN ASPART (*BKC) 100 UNITS/ML SUB-Q (17:16)
[2024-01-05] MEDS: ACETAMINOPHEN 325 MG TABLET 650 MG PO (20:22)
[2024-01-05] MEDS: INSULIN GLARGINE (*BKC) 100 UNITS/ML 20 UNITS SUB-Q (20:23)
[2024-01-05] MEDS: AMIODARONE HCL 200 MG TABLET FEED TUBE (20:23)
[2024-01-05 20:36] LABS: Glucose Point of Care 234 mg/dl (65-105)
[2024-01-05 23:55] LABS: Glucose Point of Care 274 mg/dl (65-105)
[2024-01-06] VITALS (23 sets, daily range): BP systolic 105–163; BP diastolic 51–90; PULSE 68–90; RESP 12–20; TEMP 36.5–36.7; O2SAT 97–100
[2024-01-06] MEDS: INSULIN ASPART (*BKC) 100 UNITS/ML SUB-Q ×5 (00:39→23:52)
[2024-01-06] MEDS: INSULIN ASPART (*BKC) 100 UNITS/ML 8 UNITS SUB-Q ×5 (00:39→23:51)
[2024-01-06] MEDS: IPRATROPIUM 0.5 MG/ALBUTEROL SULFATE 2.5 MG AMPUL.NEB 3 ML INHALATION ×4 (03:30→20:35)
[2024-01-06 04:58] LABS: Hematocrit 37.8 % (37.0-47.0); Hemoglobin 12.4 g/dL (12.0-15.0); Mean Corpuscular HGB Conc 32.8 g/dl (32-36); Mean Corpuscular Hemoglobin 32.5 pg (26-34); Mean Corpuscular Volume 99.2 fl (80-100); Platelet Count Result 317 k/mm3 (150-375); Red Blood Count 3.81 M/mm3 (4.2-5.4); Red Cell Distribution Width 13.7 % (11.5-14.5); White Blood Count 21.1 K/mm3 (4.5-10.0)
--- NOTE | 2024-01-06 05:03 | PCRCNOTE ---
Patient was agitated earlier in the night and would not allow RT to apply updraft mask to face. RT attempted to hold in front of face, pt was restless.
[2024-01-06 05:08] LABS: Alanine Aminotransferase 16 U/L (6-35); Albumin Level 4.5 g/dL (3.5-5.1); Alkaline Phosphatase 104 U/L (38-126); Anion Gap 13 mmol/L (4-12); Aspartate Amino Transferase 36 U/L (14-36); Bilirubin,Total 0.5 mg/dL (0.2-1.3); Blood Urea Nitrogen 31 mg/dL (7-17); Carbon Dioxide 32 mmol/L (22-30); Chloride 93 mmol/L (98-107); Estimated CRCL calculation 9 ml/min; Estimated Glomerular Filt Rate 7; Glucose 248 mg/dL (65-110); Potassium 3.7 mmol/L (3.4-5.0); Sodium 138 mmol/L (137-145)
[2024-01-06 05:08] LABS: Glucose Point of Care 235 mg/dl (65-105)
[2024-01-06] MEDS: LEVOTHYROXINE SODIUM INJ 100 MCG/5 ML VIAL 87.5 MCG IV PUSH (05:11)
[2024-01-06] MEDS: PANTOPRAZOLE SODIUM IV 40 MG VIAL IV PUSH (10:00)
[2024-01-06] MEDS: rOPINIRole HCL 1 MG TABLET BY MOUTH ×2 (10:00→20:06)
[2024-01-06] MEDS: FLUTICASONE PROPIONATE 0.05% NA SPR 16 GM BTL (*BKC) 2 SPRAY NASAL (10:00)
[2024-01-06] MEDS: ROSUVASTATIN 5 MG TABLET FEED TUBE (10:00)
[2024-01-06] MEDS: TOLNAFTATE 1% POWDER 45 GM BTL 1 APPLIC TOPICAL ×2 (10:00→20:08)
[2024-01-06] MEDS: CALCIUM ACETATE 667 MG TABLET FEED TUBE ×3 (10:00→17:20)
[2024-01-06] MEDS: ASPIRIN 81 MG CHEWABLE TABLET FEED TUBE (10:00)
[2024-01-06 11:49] LABS: Glucose Point of Care 296 mg/dl (65-105)
--- NOTE | 2024-01-06 12:36 | P.PNNP_ITS ---
Progress Note: A&P Assessment and Plan (1) End stage renal disease: Code(s): N18.6 - End stage renal disease Status: Acute Assessment and Plan: * HD yesterday * continue T/T/S outpatient dialysis schedule while hospitalized * follow electrolytes, volume status, and clearance (2) Acute CVA (cerebrovascular accident): Code(s): I63.9 - Cerebral infarction, unspecified Status: Acute Assessment and Plan: * as noted by symptoms on evening of 12/24 and morning of 12/25 * confirmed by MRI of brain * CTA of head and neck noted * repeat CTA of head and neck (on 01/03) reviewed * Neurology recommendations noted * continue supportive therapy (3) Aspiration pneumonia: Code(s): J69.0 - Pneumonitis due to inhalation of food and vomit Status: Acute Assessment and Plan: * suggested by recent CXR and rising WBC * MBS with evidence of aspiration * follow repeat CXRs * on antibiotics to cover (cefepime and Flagyl) (4) COPD (chronic obstructive pulmonary disease): Qualifiers: COPD type: unspecified COPD Qualified Code(s): J44.9 - Chronic obstructive pulmonary disease, unspecified Code(s): J44.9 - Chronic obstructive pulmonary disease, unspecified Status: Acute Assessment and Plan: * appears compensated * continue supportive therapy * follow respiratory status (5) UTI (urinary tract infection): Code(s): N39.0 - Urinary tract infection, site not specified Status: Acute Assessment and Plan: * admission UA highly suggestive * follow culture data - urine culture with E.coli * completed course of antibiotics (6) Hypertension: Code(s): I10 - Essential (primary) hypertension Status: Chronic Assessment and Plan: * reasonable control at this time * follow trend of hemodynamics (7) Anemia: Code(s): D64.9 - Anemia, unspecified Status: Acute Assessment and Plan: * H/H supratherapeutic for ESRD * holding RADHA at this time * follow H/H (8) Type 2 diabetes mellitus with hyperglycemia: Qualifiers: Diabetes mellitus chlorination operator insulin use: with snf use Qualified Code(s): E11.65 - Type 2 diabetes mellitus with hyperglycemia; Z79.4 - genetic counselor (current) use of insulin Code(s): E11.65 - Type 2 diabetes mellitus with hyperglycemia Status: Chronic Assessment and Plan: * follow accu-cheks * glycemic control per hospitalists Will continue to follow. Subjective Date/time seen: 01/06/24 12:36 Interval history: Follow-up for end stage renal disease on hemodialysis. Tolerated dialysis treatment yesterday without any issues or problems; she remains non-verbal/non-communicative/aphasic but looks at me when I talk to her; still with right sided weakness; no apparent distress noted; no events overnight or earlier this morning; remains hemodynamically stable. Exam Narrative: General: elderly but WD/WN female in NAD Heart: normal S1 and S2; no rub Lungs: clear anteriorly; decreased at bases Abdomen: soft, nontender, nondistended, positive bowel sounds; + G-tube Extremities: no cyanosis or clubbing; no edema Skin: warm and intact Objective Data Vital Signs Vital Signs: Vital Signs Temp Pulse Resp BP Pulse Ox O2 Del Method FiO2 01/06/24 12:00 97.7 F 81 18 163/55 H 98
--- NOTE | 2024-01-06 12:36 | PM.PNNEP ---
Progress Note: A&P Assessment and Plan (1) End stage renal disease: Code(s): N18.6 - End stage renal disease Status: Acute Assessment and Plan: HD yesterday continue T/T/S outpatient dialysis schedule while hospitalized follow electrolytes, volume status, and clearance (2) Acute CVA (cerebrovascular accident): Code(s): I63.9 - Cerebral infarction, unspecified Status: Acute Assessment and Plan: as noted by symptoms on evening of 12/24 and morning of 12/25 confirmed by MRI of brain CTA of head and neck noted repeat CTA of head and neck (on 01/03) reviewed Neurology recommendations noted continue supportive therapy (3) Aspiration pneumonia: Code(s): J69.0 - Pneumonitis due to inhalation of food and vomit Status: Acute Assessment and Plan: suggested by recent CXR and rising WBC MBS with evidence of aspiration follow repeat CXRs on antibiotics to cover (cefepime and Flagyl) (4) COPD (chronic obstructive pulmonary disease): Qualifiers: COPD type: unspecified COPD Qualified Code(s): J44.9 - Chronic obstructive pulmonary disease, unspecified Code(s): J44.9 - Chronic obstructive pulmonary disease, unspecified Status: Acute Assessment and Plan: appears compensated continue supportive therapy follow respiratory status (5) UTI (urinary tract infection): Code(s): N39.0 - Urinary tract infection, site not specified Status: Acute Assessment and Plan: admission UA highly suggestive follow culture data - urine culture with E.coli completed course of antibiotics (6) Hypertension: Code(s): I10 - Essential (primary) hypertension Status: Chronic Assessment and Plan: reasonable control at this time follow trend of hemodynamics (7) Anemia: Code(s): D64.9 - Anemia, unspecified Status: Acute Assessment and Plan: H/H supratherapeutic for ESRD holding RADHA at this time follow H/H (8) Type 2 diabetes mellitus with hyperglycemia: Qualifiers: Diabetes mellitus terminal gauger supervisor insulin use: with terminal gauger supervisor use Qualified Code(s): E11.65 - Type 2 diabetes mellitus with hyperglycemia; Z79.4 - [facility] (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 Subjective Date/time seen: 01/06/24 12:36 Interval history: Follow-up for end stage renal disease on hemodialysis. Tolerated dialysis treatment yesterday without any issues or problems; she remains non-verbal/non-communicative/aphasic but looks at me when I talk to her; still with right sided weakness; no apparent distress noted; no events overnight or earlier this morning; remains hemodynamically stable. Exam Narrative: General: elderly but WD/WN female in NAD Heart: normal S1 and S2; no rub Lungs: clear anteriorly; decreased at bases Abdomen: soft, nontender, nondistended, positive bowel sounds; + G-tube Extremities: no cyanosis or clubbing; no edema Skin: warm and intact Objective Data Vital Signs Vital Signs: Vital Signs Temp Pulse Resp BP Pulse Ox O2 Del Method FiO2 01/06/24 12:00 97.7 F 81 18 163/55 H 98 01/06/24 07:28 73 18 01/06/24 07:16 79 18 01/06/24 07:16 100 Room Air 21 01/06/24 02:00 72 01/06/24 04:00 75 01/06/24 06:00 75 01/06/24 00:00 70 01/06/24 04:00 Room Air 01/05/24 22:00 73 01/06/24 05:01 98.1 F 75 14 145/51 H 99 01/06/24 03:40 76 14 01/06/24 03:30 77 14 01/06/24 04:08 75 12 145/51 H 97 01/06/24 00:00 Room Air 01/05/24 20:00 87 01/06/24 00:00 97.7 F 68 14 155/53 H 97 01/05/24 20:00 Room Air 01/05/24 20:23 80 01/05/24 20:00
--- NOTE | 2024-01-06 13:18 | PM.IMPN ---
Progress Note: A&P Assessment and Plan (1) Hyperkalemia: Code(s): E87.5 - Hyperkalemia Status: Acute (2) Diabetes mellitus with hyperglycemia: Code(s): E11.65 - Type 2 diabetes mellitus with hyperglycemia Status: Acute (3) Hypoxia: Code(s): R09.02 - Hypoxemia Status: Acute (4) Pseudohyponatremia: Code(s): R79.89 - Other specified abnormal findings of blood chemistry Status: Acute (5) UTI symptoms: Code(s): R39.9 - Unspecified symptoms and signs involving the genitourinary system Status: Acute (6) Leukocytosis: Code(s): D72.829 - Elevated white blood cell count, unspecified Status: Acute (7) Acute on chronic heart failure: Code(s): I50.9 - Heart failure, unspecified Status: Acute (8) Aphasia: Code(s): R47.01 - Aphasia Status: Acute Plan ED Course:72-year-old female with a history of type 2 diabetes mellitus with long-term use of insulin, hypertension, hyperlipidemia, ESRD on dialysis Sunday, CAD, diastolic CHF, atrial fibrillation on apixaban, restless leg syndrome, hypothyroidism, depression and anxiety, RAINA, peripheral neuropathy, history of cerebellar CVA remote presented with imbalance, GERD with Gongora's, history of esophageal stricture, COPD, peripheral neuropathy, history of DVT. She present to the ER for shortness of breath and generalized weakness. In the ER patient appeared weak on presentation. Her potassium was high at 7 received calcium gluconate and high-dose albuterol therapy. Dextrose and insulin. Laboratory evaluation showed WBC count 10.2. Urinalysis shows positive leukocyte esterase greater than 100 WBCs cells. No Bacteria. History has been inconsistent history. Unfortunately she is a poor historian The patient herself reports she missed Lasix, other family member has reported she missed dialysis. Hyperglycemia noted with blood sugar up to 572 on arrival to the ED. patient was also wheezy on presentation. She was started on ceftriaxone for UTI. She was admitted for further treatment. Acute CVA Sometime in the evening of 12/24 developed aphasia. -CT head was performed which demonstrated or infarct in the left cerebellum and bilateral basal ganglia. She was out of the window for tPA. She was already on apixaban as well. Neurology was consulted. MRI brain was performed on 12/26/2023 which documented acute infarct in the left hippocampus left posterior frontal lobe with no hemorrhage. Aspirin Plavix added. Echo ordered which has done yet to uncooperativeness. Eventually CTA was done 12/27/2023 which revealed complete occlusion of left M2 segment. Carotid Doppler with less than 50% stenosis in VEE and LICA. -With her stroke she is having aphasia as well as right-sided weakness dysphagia. Speech therapy PT OT on board. -Again on 01/02 night she developed worsening sx and CTA and CT performed due to new worsening Sx -CTA 01/03 :Extensive hypodensity in the left MCA distribution is compatible with evolving acute infarct. No intracranial hemorrhage evident. -CT done on 01/02: Large infarct in the expected distribution of left middle cerebral artery with worsening from 12/29/2023, likely acute or subacute -01/02 : Nocturist called [facility] (Please refer to cross cover note on 01/[address] Boston from [facility] recommended that given the large area of stroke bed infarct that it would actually be advisable to hold the patient's Eliquis for 4-7 days post acute neurologic changes. -01/03 :Today I called [facility] again as continuation of previous conversation and had an extensive conversation with and explained the new findings of the CTA. With the possibility of herniation of the brain, midline shift or hemorrhagic conversion in near future and with no Neurology in the backup we recommended on transferring the patient to be [facility]. reviewed all the images and called me back sayi
--- NOTE | 2024-01-06 13:24 | PCOTNOTE ---
Attempted to see pt for Occupational therapy treatment. Pt is nonverbal and is resistant to all movement from therapist despite encouragement and assistance to move BLE to side of bed. Per RN, pt was up in the chair earlier for ~3hrs and was becoming agitated to lay back down in bed with assistance of staff for safety.
--- NOTE | 2024-01-06 13:24 | OPREHPOC ---
Outpatient Therapy Plan of Care This is a Multidisciplinary Plan of Care that may contain components documented by all disciplines (PT, OT, and ST.) Pt lying in bed when this therapist came in. Encouraged to perform bed mobility to sit up at EOB and do exercises. Pt demos resistance and kicks BLE when assisted in scooting. Attempted to instruct pt on performing ankle pumps and supine exercises, pt demos refusal by rolling to side away from the therapist, and holding BLE in extension. repeatedly kicking and shaking head at this time. Pt boosted up to bed total assist x 2. Nursing aware.
[2024-01-06] MEDS: metroNIDAZOLE 500 MG/ISO 100ML 500 MG/100 ML BAG 100 MG IVPB ×2 (15:00→21:32)
[2024-01-06 15:56] LABS: Procalcitonin 0.5 ng/mL
[2024-01-06] MEDS: CEFEPIME 1 GM/NS 50 ML 1 GM/50 ML BAG IVPB (17:20)
[2024-01-06 17:30] LABS: Glucose Point of Care 303 mg/dl (65-105)
[2024-01-06 18:26] LABS: Toxigenic C. Diff NEGATIVE (NEGATIVE)
[2024-01-06 20:06] LABS: Glucose Point of Care 247 mg/dl (65-105)
[2024-01-06] MEDS: AMIODARONE HCL 200 MG TABLET FEED TUBE (20:06)
[2024-01-06] MEDS: INSULIN GLARGINE (*BKC) 100 UNITS/ML 20 UNITS SUB-Q (20:07)
[2024-01-06 23:46] LABS: Glucose Point of Care 216 mg/dl (65-105)
[2024-01-07] VITALS (32 sets, daily range): BP systolic 88–167; BP diastolic 33–104; PULSE 68–83; RESP 12–20; TEMP 35.8–37; O2SAT 96–100
[2024-01-07 06:15] LABS: Glucose Point of Care 294 mg/dl (65-105)
[2024-01-07] MEDS: LEVOTHYROXINE SODIUM INJ 100 MCG/5 ML VIAL 87.5 MCG IV PUSH (06:18)
[2024-01-07] MEDS: metroNIDAZOLE 500 MG/ISO 100ML 500 MG/100 ML BAG 100 MG IVPB ×3 (06:18→23:00)
[2024-01-07] MEDS: INSULIN ASPART (*BKC) 100 UNITS/ML 8 UNITS SUB-Q ×3 (06:57→17:57)
[2024-01-07] MEDS: INSULIN ASPART (*BKC) 100 UNITS/ML SUB-Q ×2 (06:58→12:32)
[2024-01-07] MEDS: IPRATROPIUM 0.5 MG/ALBUTEROL SULFATE 2.5 MG AMPUL.NEB 3 ML INHALATION ×3 (07:29→19:38)
--- NOTE | 2024-01-07 07:36 | PCRCNOTE ---
RT had this patient yesterday and again today. This morning pt kept turning her head away from RT while trying to administer inhalers. Inhalers not given due to patient getting agitated. Breathing tx given with RT helping to hold tx so pt would finish it.
[2024-01-07] MEDS: ROSUVASTATIN 5 MG TABLET FEED TUBE (08:02)
[2024-01-07] MEDS: TOLNAFTATE 1% POWDER 45 GM BTL 1 APPLIC TOPICAL ×2 (08:02→21:26)
[2024-01-07] MEDS: ASPIRIN 81 MG CHEWABLE TABLET FEED TUBE (08:02)
[2024-01-07] MEDS: PANTOPRAZOLE SODIUM IV 40 MG VIAL IV PUSH (08:02)
[2024-01-07] MEDS: CALCIUM ACETATE 667 MG TABLET FEED TUBE ×3 (08:02→17:57)
[2024-01-07] MEDS: rOPINIRole HCL 1 MG TABLET BY MOUTH ×2 (08:02→21:24)
[2024-01-07] MEDS: FLUTICASONE PROPIONATE 0.05% NA SPR 16 GM BTL (*BKC) 2 SPRAY NASAL (08:03)
[2024-01-07 08:08] LABS: Hemoglobin 11.6 g/dL (12.0-15.0); Mean Corpuscular HGB Conc 32.2 g/dl (32-36); Mean Corpuscular Hemoglobin 32.2 pg (26-34); Mean Platelet Volume 11.6 fl (7.4-10.4); Platelet Count Result 291 k/mm3 (150-375); Red Cell Distribution Width 13.6 % (11.5-14.5); White Blood Count 19.1 K/mm3 (4.5-10.0)
[2024-01-07 08:23] LABS: Anion Gap 12 mmol/L (4-12); Blood Urea Nitrogen 55 mg/dL (7-17); Carbon Dioxide 32 mmol/L (22-30); Chloride 92 mmol/L (98-107); Estimated CRCL calculation 7 ml/min; Estimated Glomerular Filt Rate 5; Glucose 339 mg/dL (65-110); Potassium 4.2 mmol/L (3.4-5.0); Sodium 136 mmol/L (137-145)
--- NOTE | 2024-01-07 09:24 | PM.IMPN ---
Progress Note: A&P Assessment and Plan (1) Hyperkalemia: Code(s): E87.5 - Hyperkalemia Status: Acute (2) Diabetes mellitus with hyperglycemia: Code(s): E11.65 - Type 2 diabetes mellitus with hyperglycemia Status: Acute (3) Hypoxia: Code(s): R09.02 - Hypoxemia Status: Acute (4) Pseudohyponatremia: Code(s): R79.89 - Other specified abnormal findings of blood chemistry Status: Acute (5) UTI symptoms: Code(s): R39.9 - Unspecified symptoms and signs involving the genitourinary system Status: Acute (6) Leukocytosis: Code(s): D72.829 - Elevated white blood cell count, unspecified Status: Acute (7) Acute on chronic heart failure: Code(s): I50.9 - Heart failure, unspecified Status: Acute (8) Aphasia: Code(s): R47.01 - Aphasia Status: Acute Plan ED Course:72-year-old female with a history of type 2 diabetes mellitus with long-term use of insulin, hypertension, hyperlipidemia, ESRD on dialysis Sunday, CAD, diastolic CHF, atrial fibrillation on apixaban, restless leg syndrome, hypothyroidism, depression and anxiety, RAINA, peripheral neuropathy, history of cerebellar CVA remote presented with imbalance, GERD with Gongora's, history of esophageal stricture, COPD, peripheral neuropathy, history of DVT. She present to the ER for shortness of breath and generalized weakness. In the ER patient appeared weak on presentation. Her potassium was high at 7 received calcium gluconate and high-dose albuterol therapy. Dextrose and insulin. Laboratory evaluation showed WBC count 10.2. Urinalysis shows positive leukocyte esterase greater than 100 WBCs cells. No Bacteria. History has been inconsistent history. Unfortunately she is a poor historian The patient herself reports she missed Lasix, other family member has reported she missed dialysis. Hyperglycemia noted with blood sugar up to 572 on arrival to the ED. patient was also wheezy on presentation. She was started on ceftriaxone for UTI. She was admitted for further treatment. Acute CVA Sometime in the evening of 12/24 developed aphasia. -CT head was performed which demonstrated or infarct in the left cerebellum and bilateral basal ganglia. She was out of the window for tPA. She was already on apixaban as well. Neurology was consulted. MRI brain was performed on 12/26/2023 which documented acute infarct in the left hippocampus left posterior frontal lobe with no hemorrhage. Aspirin Plavix added. Echo ordered which has done yet to uncooperativeness. Eventually CTA was done 12/27/2023 which revealed complete occlusion of left M2 segment. Carotid Doppler with less than 50% stenosis in VEE and LICA. -With her stroke she is having aphasia as well as right-sided weakness dysphagia. Speech therapy PT OT on board. -Again on 01/02 night she developed worsening sx and CTA and CT performed due to new worsening Sx -CTA 01/03 :Extensive hypodensity in the left MCA distribution is compatible with evolving acute infarct. No intracranial hemorrhage evident. -CT done on 01/02: Large infarct in the expected distribution of left middle cerebral artery with worsening from 12/29/2023, likely acute or subacute -01/02 : Nocturist called [facility] (Please refer to cross cover note on 01/[address] Boston from [facility] recommended that given the large area of stroke bed infarct that it would actually be advisable to hold the patient's Eliquis for 4-7 days post acute neurologic changes. -01/03 :Today I called [facility] again as continuation of previous conversation and had an extensive conversation with and explained the new findings of the CTA. With the possibility of herniation of the brain, midline shift or hemorrhagic conversion in near future and with no Neurology in the backup we recommended on transferring the patient to be [facility]. reviewed all the images and called me back sayi
--- NOTE | 2024-01-07 09:30 | PC.NURSE ---
Worked with PT, see their documentation for efforts and abilities. Pending confirmation of Hemodialysis plan for today or tomorrow.
--- NOTE | 2024-01-07 09:40 | PC.NURSE ---
Patient off unit to Hemodialysis on continuous monitor and continuous tube feedings running @0940. Hemodialysis steam pipe fitter at bedside.
[2024-01-07] MEDS: ALBUMIN HUMAN 25% 12.5 GM/50ML 100 ML 50 GM (10:22)
--- NOTE | 2024-01-07 10:40 | P.PNNP_ITS ---
Progress Note: A&P Assessment and Plan (1) End stage renal disease: Code(s): N18.6 - End stage renal disease Status: Acute Assessment and Plan: * HD today * switch to M// dialysis schedule in anticipation of transfer to [facility] * follow electrolytes, volume status, and clearance (2) Acute CVA (cerebrovascular accident): Code(s): I63.9 - Cerebral infarction, unspecified Status: Acute Assessment and Plan: * as noted by symptoms on evening of 12/24 and morning of 12/25 * confirmed by MRI of brain * CTA of head and neck noted * repeat CTA of head and neck (on 01/03) reviewed * Neurology recommendations noted * continue supportive therapy (3) Aspiration pneumonia: Code(s): J69.0 - Pneumonitis due to inhalation of food and vomit Status: Acute Assessment and Plan: * suggested by recent CXR and rising WBC * MBS with evidence of aspiration * follow repeat CXRs * on antibiotics to cover (cefepime and Flagyl) (4) COPD (chronic obstructive pulmonary disease): Qualifiers: COPD type: unspecified COPD Qualified Code(s): J44.9 - Chronic obstructive pulmonary disease, unspecified Code(s): J44.9 - Chronic obstructive pulmonary disease, unspecified Status: Acute Assessment and Plan: * appears compensated * continue supportive therapy * follow respiratory status (5) UTI (urinary tract infection): Code(s): N39.0 - Urinary tract infection, site not specified Status: Acute Assessment and Plan: * admission UA highly suggestive * follow culture data - urine culture with E.coli * completed course of antibiotics (6) Hypertension: Code(s): I10 - Essential (primary) hypertension Status: Chronic Assessment and Plan: * reasonable control at this time * follow trend of hemodynamics (7) Anemia: Code(s): D64.9 - Anemia, unspecified Status: Acute Assessment and Plan: * H/H supratherapeutic for ESRD * holding RADHA at this time * follow H/H (8) Type 2 diabetes mellitus with hyperglycemia: Qualifiers: Diabetes mellitus assisted insulin use: with assisted use Qualified Code(s): E11.65 - Type 2 diabetes mellitus with hyperglycemia; Z79.4 - [facility] (current) use of insulin Code(s): E11.65 - Type 2 diabetes mellitus with hyperglycemia Status: Chronic Assessment and Plan: * follow accu-cheks * glycemic control per hospitalists Will continue to follow. Subjective Date/time seen: 01/07/24 10:40 Interval history: Follow-up for end stage renal disease on hemodialysis. Tolerating dialysis treatment at the time of my visit (seen on HD at 10:30AM); she seems a bit restless currently requiring a sitter to re-direct her and keep from pulling at her dialysis tubing/lines/needles; asked by care coordination to do dialysis treatment today given possible discharge to [facility] later today. Exam Narrative: General: elderly but WD/WN female in NAD Heart: normal S1 and S2; no rub Lungs: clear anteriorly; decreased at bases Abdomen: soft, nontender, nondistended, positive bowel sounds; + G-tube Extremities: no cyanosis or clubbing; no edema Skin: no rash Objective Data Vital Signs Vital Signs: Vital Signs Temp Pulse Resp BP Pulse Ox O2 Del Method O2 Flow Rate 01/07/24 10:00 76
--- NOTE | 2024-01-07 10:40 | PM.PNNEP ---
Progress Note: A&P Assessment and Plan (1) End stage renal disease: Code(s): N18.6 - End stage renal disease Status: Acute Assessment and Plan: HD today switch to M/W/F dialysis schedule in anticipation of transfer to [facility] follow electrolytes, volume status, and clearance (2) Acute CVA (cerebrovascular accident): Code(s): I63.9 - Cerebral infarction, unspecified Status: Acute Assessment and Plan: as noted by symptoms on evening of 12/24 and morning of 12/25 confirmed by MRI of brain CTA of head and neck noted repeat CTA of head and neck (on 01/03) reviewed Neurology recommendations noted continue supportive therapy (3) Aspiration pneumonia: Code(s): J69.0 - Pneumonitis due to inhalation of food and vomit Status: Acute Assessment and Plan: suggested by recent CXR and rising WBC MBS with evidence of aspiration follow repeat CXRs on antibiotics to cover (cefepime and Flagyl) (4) COPD (chronic obstructive pulmonary disease): Qualifiers: COPD type: unspecified COPD Qualified Code(s): J44.9 - Chronic obstructive pulmonary disease, unspecified Code(s): J44.9 - Chronic obstructive pulmonary disease, unspecified Status: Acute Assessment and Plan: appears compensated continue supportive therapy follow respiratory status (5) UTI (urinary tract infection): Code(s): N39.0 - Urinary tract infection, site not specified Status: Acute Assessment and Plan: admission UA highly suggestive follow culture data - urine culture with E.coli completed course of antibiotics (6) Hypertension: Code(s): I10 - Essential (primary) hypertension Status: Chronic Assessment and Plan: reasonable control at this time follow trend of hemodynamics (7) Anemia: Code(s): D64.9 - Anemia, unspecified Status: Acute Assessment and Plan: H/H supratherapeutic for ESRD holding RADHA at this time follow H/H (8) Type 2 diabetes mellitus with hyperglycemia: Qualifiers: Diabetes mellitus salvage determiner insulin use: with penitentiary use Qualified Code(s): E11.65 - Type 2 diabetes mellitus with hyperglycemia; Z79.4 - medical terminologist (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 Subjective Date/time seen: 01/07/24 10:40 Interval history: Follow-up for end stage renal disease on hemodialysis. Tolerating dialysis treatment at the time of my visit (seen on HD at 10:30AM); she seems a bit restless currently requiring a sitter to re-direct her and keep from pulling at her dialysis tubing/lines/needles; asked by care coordination to do dialysis treatment today given possible discharge to [facility] later today. Exam Narrative: General: elderly but WD/WN female in NAD Heart: normal S1 and S2; no rub Lungs: clear anteriorly; decreased at bases Abdomen: soft, nontender, nondistended, positive bowel sounds; + G-tube Extremities: no cyanosis or clubbing; no edema Skin: no rash Objective Data Vital Signs Vital Signs: Vital Signs Temp Pulse Resp BP Pulse Ox O2 Del Method O2 Flow Rate 01/07/24 10:00 76 01/07/24 09:45 98.2 F 71 20 105/53 L 100 01/07/24 09:45 0 01/07/24 08:00 100 Room Air 01/07/24 10:00 80 01/07/24 08:00 71 01/07/24 08:00 98.2 F 76 14 109/49 L 100 01/07/24 07:34 69 18 01/07/24 07:29 78 16 01/07/24 07:29 98 Room Air 01/07/24 06:00 115/63 01/07/24 04:00 75 01/07/24 04:00 Room Air 01/07/24 04:09 97.7 F 77 12 100 01/07/24 00:00 70 01/06/24 23:47 97.9 F 76 14 105/83 100 01/06/24 23:44 Room Air 01/06/24 20:40 81 15 01/06/24 20:26 97.9
[2024-01-07 12:38] LABS: Glucose Point of Care 225 mg/dl (65-105)
[2024-01-07] MEDS: ALBUMIN HUMAN 25% 12.5 GM/50ML 50 ML IVPB (12:49)
--- NOTE | 2024-01-07 13:19 | PC.NURSE ---
RN to RN report given to Any, patient currently off unit in hemodialysis, will transfer to room 249 after treatment. Patient belongings and care items taken to new room assignment. Daughter, Gwen, Updated with new room.
--- NOTE | 2024-01-07 15:36 | PC.NURSE ---
This patient, Gregoria Rae, was received from ICU on 01/07/24 at 1357. Patient/family oriented to unit policies and routines.
[2024-01-07 17:31] LABS: Glucose Point of Care 180 mg/dl (65-105)
[2024-01-07] MEDS: CEFEPIME 1 GM/NS 50 ML 1 GM/50 ML BAG IVPB (17:57)
[2024-01-07 18:13] LABS: Procalcitonin 0.5 ng/mL
[2024-01-07] MEDS: FLUTICASONE/SALMETEROL 230-21 MCG INHALER 1 PUFF 2 PUFF INHALATION (19:49)
[2024-01-07] MEDS: AMIODARONE HCL 200 MG TABLET FEED TUBE (21:24)
[2024-01-07] MEDS: INSULIN GLARGINE (*BKC) 100 UNITS/ML 20 UNITS SUB-Q (21:27)
[2024-01-08] VITALS (11 sets, daily range): BP systolic 108–150; BP diastolic 40–103; PULSE 61–86; RESP 14–20; TEMP 36–36.4; O2SAT 95–100
[2024-01-08] MEDS: INSULIN ASPART (*BKC) 100 UNITS/ML 8 UNITS SUB-Q ×4 (00:27→17:48)
[2024-01-08] MEDS: INSULIN ASPART (*BKC) 100 UNITS/ML SUB-Q ×4 (00:29→17:48)
[2024-01-08 01:05] LABS: Glucose Point of Care 275 mg/dl (65-105)
[2024-01-08] MEDS: IPRATROPIUM 0.5 MG/ALBUTEROL SULFATE 2.5 MG AMPUL.NEB 3 ML INHALATION ×4 (02:10→20:46)
[2024-01-08] MEDS: LEVOTHYROXINE SODIUM INJ 100 MCG/5 ML VIAL 87.5 MCG IV PUSH (06:34)
[2024-01-08 06:36] LABS: Glucose Point of Care 238 mg/dl (65-105)
[2024-01-08] MEDS: metroNIDAZOLE 500 MG/ISO 100ML 500 MG/100 ML BAG 100 MG IVPB ×3 (06:40→21:08)
[2024-01-08] MEDS: FLUTICASONE/SALMETEROL 230-21 MCG INHALER 1 PUFF 2 PUFF INHALATION (08:20)
[2024-01-08] MEDS: UMECLIDINIUM BROMIDE 62.5 MCG ELLIPTA 1 PUFF INHALATION (08:20)
[2024-01-08] MEDS: FLUTICASONE PROPIONATE 0.05% NA SPR 16 GM BTL (*BKC) 2 SPRAY NASAL (09:24)
[2024-01-08] MEDS: rOPINIRole HCL 1 MG TABLET BY MOUTH ×2 (09:24→20:52)
[2024-01-08] MEDS: ROSUVASTATIN 5 MG TABLET FEED TUBE (09:24)
[2024-01-08] MEDS: ASPIRIN 81 MG CHEWABLE TABLET FEED TUBE (09:24)
[2024-01-08] MEDS: CALCIUM ACETATE 667 MG TABLET FEED TUBE ×3 (09:24→17:47)
[2024-01-08] MEDS: PANTOPRAZOLE SODIUM IV 40 MG VIAL IV PUSH (09:24)
[2024-01-08] MEDS: TOLNAFTATE 1% POWDER 45 GM BTL 1 APPLIC TOPICAL ×2 (09:25→20:52)
--- NOTE | 2024-01-08 10:44 | PCSTNOTE ---
Late Entry from 01/02. Treatment not completed as patient was in dialysis when attempted. Note not entered at that time in hopes of completing a treatment later but patient not available.
--- NOTE | 2024-01-08 11:07 | PCNFU ---
Nutrition Follow-Up Complete: Swallowing Difficulties as related to CVA as evidenced by failed MBS/tube feedings. Goal: Meet estimated nutritional needs Patient is meeting goal. No new goal. Pt current nutrition is Nepro at 40 ml/hr. Last recorded weight is 98.3 kg, down from 101/8 kg on admit. Bowel Motility:+BM report, less diarrhea noted. Labs Reviewed: Glu 339, BUN 55, GFR 5, Cr 7.8 Meds Noted: Lantus, Zosyn, Protonix, Eliquis. Skin: WNL Additional Notes: Patient current with G tube. Tolerating tube feedings of Nepro at 40 ml/hr. Tube feeding providing 1584 kcal/72 gm protein/640 ml water. Meeting 100% of kcal and protein needs at 16/kcal per kcal and 1.0-1.2 gm/kg of protein. Flush continues a 30 ml q 4 hours, Na 136 today. Banatrol Plus discontinuedfor stool bulking 2/2 to less out put with stool. Agree with diet orders. Will monitor weight, labs, skin, tube feedings, meds every Sunday and Sunday.
--- NOTE | 2024-01-08 11:20 | PM.PNNEP ---
Progress Note: A&P Assessment and Plan (1) End stage renal disease: Code(s): N18.6 - End stage renal disease Status: Acute Assessment and Plan: HD tomorrow switching to M/W/F dialysis schedule in anticipation of transfer to [facility] follow electrolytes, volume status, and clearance (2) Acute CVA (cerebrovascular accident): Code(s): I63.9 - Cerebral infarction, unspecified Status: Acute Assessment and Plan: as noted by symptoms on evening of 12/24 and morning of 12/25 confirmed by MRI of brain CTA of head and neck noted repeat CTA of head and neck (on 01/03) reviewed Neurology recommendations noted continue supportive therapy (3) Aspiration pneumonia: Code(s): J69.0 - Pneumonitis due to inhalation of food and vomit Status: Acute Assessment and Plan: suggested by recent CXR and rising WBC MBS with evidence of aspiration follow repeat CXRs on antibiotics to cover (cefepime and Flagyl) (4) COPD (chronic obstructive pulmonary disease): Qualifiers: COPD type: unspecified COPD Qualified Code(s): J44.9 - Chronic obstructive pulmonary disease, unspecified Code(s): J44.9 - Chronic obstructive pulmonary disease, unspecified Status: Acute Assessment and Plan: appears compensated continue supportive therapy follow respiratory status (5) UTI (urinary tract infection): Code(s): N39.0 - Urinary tract infection, site not specified Status: Acute Assessment and Plan: admission UA highly suggestive follow culture data - urine culture with E.coli completed course of antibiotics (6) Hypertension: Code(s): I10 - Essential (primary) hypertension Status: Chronic Assessment and Plan: reasonable control at this time follow trend of hemodynamics (7) Anemia: Code(s): D64.9 - Anemia, unspecified Status: Acute Assessment and Plan: H/H supratherapeutic for ESRD holding RADHA at this time follow H/H (8) Type 2 diabetes mellitus with hyperglycemia: Qualifiers: Diabetes mellitus residential insulin use: with long chain dyeing machine operator use Qualified Code(s): E11.65 - Type 2 diabetes mellitus with hyperglycemia; Z79.4 - terminal clerk (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 Subjective Date/time seen: 01/08/24 11:20 Interval history: Follow-up for end stage renal disease on hemodialysis. Tolerated dialysis treatment yesterday without any issues or problems (although was a bit restless during the treatment); appears in no apparent distress at the time of my visit; no events overnight or earlier this morning; remains aphasic and follows commands intermittently. Exam Narrative: General: elderly but WD/WN female in NAD Heart: normal S1 and S2; no rub Lungs: clear anteriorly; decreased at bases Abdomen: soft, nontender, nondistended, positive bowel sounds; + G-tube Extremities: no cyanosis or clubbing; no edema Skin: no nodules Objective Data Vital Signs Vital Signs: Vital Signs Temp Pulse Resp BP Pulse Ox O2 Del Method 01/08/24 10:00 97.2 F L 78 14 150/103 H 97 01/08/24 08:30 72 14 01/08/24 08:20 70 14 01/08/24 08:20 100 Room Air 01/08/24 04:00 97.6 F 85 20 147/65 H 95 01/07/24 21:27 Room Air 01/08/24 02:18 61 14 01/08/24 02:10 64 14 01/08/24 00:00 96.8 F L 77 20 108/40 L 100 01/07/24 21:24 74 01/07/24 19:50 68 16 01/07/24 19:45 96 Room Air 01/07/24 19:40 68 16 01/07/24 19:35 97.7 F 78 20 167/68 H 97 Intake/Output Intake/Output: Intake & Output 01/05/24 01/06/24 01/07/24 01/08/24 23:59 23:59 23:59 23:59 Intake Total 1550 932 250 200 Output Total 1870 26
--- NOTE | 2024-01-08 11:20 | P.PNNP_ITS ---
Progress Note: A&P Assessment and Plan (1) End stage renal disease: Code(s): N18.6 - End stage renal disease Status: Acute Assessment and Plan: * HD tomorrow * switching to M/W/F dialysis schedule in anticipation of transfer to [facility] * follow electrolytes, volume status, and clearance (2) Acute CVA (cerebrovascular accident): Code(s): I63.9 - Cerebral infarction, unspecified Status: Acute Assessment and Plan: * as noted by symptoms on evening of 12/24 and morning of 12/25 * confirmed by MRI of brain * CTA of head and neck noted * repeat CTA of head and neck (on 01/03) reviewed * Neurology recommendations noted * continue supportive therapy (3) Aspiration pneumonia: Code(s): J69.0 - Pneumonitis due to inhalation of food and vomit Status: Acute Assessment and Plan: * suggested by recent CXR and rising WBC * MBS with evidence of aspiration * follow repeat CXRs * on antibiotics to cover (cefepime and Flagyl) (4) COPD (chronic obstructive pulmonary disease): Qualifiers: COPD type: unspecified COPD Qualified Code(s): J44.9 - Chronic obs tructive pulmonary disease, unspecified Code(s): J44.9 - Chronic obstructive pulmonary disease, unspecified Status: Acute Assessment and Plan: * appears compensated * continue supportive therapy * follow respiratory status (5) UTI (urinary tract infection): Code(s): N39.0 - Urinary tract infection, site not specified Status: Acute Assessment and Plan: * admission UA highly suggestive * follow culture data - urine culture with E.coli * completed course of antibiotics (6) Hypertension: Code(s): I10 - Essential (primary) hypertension Status: Chronic Assessment and Plan: * reasonable control at this time * follow trend of hemodynamics (7) Anemia: Code(s): D64.9 - Anemia, unspecified Status: Acute Assessment and Plan: * H/H supratherapeutic for ESRD * holding RADHA at this time * follow H/H (8) Type 2 diabetes mellitus with hyperglycemia: Qualifiers: Diabetes mellitus care home insulin use: with care home use Qualified Code(s): E11.65 - Type 2 diabetes mellitus with hyperglycemia; Z79.4 - [facility] (current) use of insulin Code(s): E11.65 - Type 2 diabetes mellitus with hyperglycemia Status: Chronic Assessment and Plan: * follow accu-cheks * glycemic control per hospitalists Will continue to follow. Subjective Date/time seen: 01/08/24 11:20 Interval history: Follow-up for end stage renal disease on hemodialysis. Tolerated dialysis treatment yesterday without any issues or problems (although was a bit restless during the treatment); appears in no apparent distress at the time of my visit; no events overnight or earlier this morning; remains aphasic and follows commands intermittently. Exam Narrative: General: elderly but WD/WN female in NAD Heart: normal S1 and S2; no rub Lungs: clear anteriorly; decreased at bases Abdomen: soft, nontender, nondistended, positive bowel sounds; + G-tube Extremities: no cyanosis or clubbing; no edema Skin: no nodules Objective Data Vital Signs Vital Signs: Vital Signs Temp Pulse Resp BP Pulse Ox O2 Del Method 01/08/24 10:00 97.2 F L 78 14 150/103 H 97 01/07/
[2024-01-08 11:50] LABS: Glucose Point of Care 230 mg/dl (65-105)
--- NOTE | 2024-01-08 12:11 | WPDNEUROPN ---
Subjective Date/time seen: 01/08/24 12:11 Interval history: 73 years old lady initially seen by Dr. Heart for the left hemispheric stroke with right hemiparesis and aphasia in addition to the ongoing history of chronic renal disease, diabetes mellitus, and atrial fibrillation, in addition to the anemia and documented stroke on the CT scan the left frontoparietal region left insular region along with the old stroke in cerebellum johann and frontal lobe as well patient does have ongoing history of DVT coronary artery disease and congestive heart failure along with the paroxysmal atrial fibrillation. Patient is a chronic dialysis patient. On today's visit the patient's daughter has multiple questions that is considering her anemia chronic renal dialysis in atrial fibrillation can we continue her on the blood thinning medication. I advised her 1. If you have decided to keep the code status full then we can continue the anticoagulation therapy as well and if the production boring machine operator wants to treat her anemia that can be treated according but if the wound to keep her off the blood thinning medication then she can continue aspirin and Plavix. Patient's original Eliquis was held as per the physician from [facility] because of large area of the stroke to avoid the secondary hemorrhage but at present there is no bleed on the most recent CT scan on 829 except the large infarct in the expected distribution left middle cerebral artery and old infarct in the johann and cerebellum so if they want to restart her on the blood thinner medication as well can be started. Her neurological status at this stage is stable Objective Data Vital Signs Vital Signs: Vital Signs - 24 hr 01/07/24 14:00 01/07/24 14:00 01/07/24 14:08 Temperature Pulse Rate 68 78 Respiratory Rate 12 12 Blood Pressure Pulse Oximetry 97 Oxygen Delivery Room Air Fraction of Inspired Oxygen 21 01/07/24 15:19 01/07/24 13:48 01/07/24 12:15 Temperature 36.1 C L 36.1 C L Pulse Rate 83 74 79 Respiratory Rate 14 18 Blood Pressure 120/47 L 156/54 H 107/60 Pulse Oximetry 98 100 Oxygen Delivery Fraction of Inspired Oxygen 01/07/24 12:30 01/07/24 12:45 01/07/24 13:00 Temperature Pulse Rate 83 75 76 Respiratory Rate Blood Pressure 90/60 L 97/63 L 96/48 L Pulse Oximetry Oxygen Delivery Fraction of Inspired Oxygen 01/07/24 13:11 01/07/24 19:35 01/07/24 19:40 Temperature 36.5 C Pulse Rate 81 78 68 Respiratory Rate 20 16 Blood Pressure 126/104 H 167/68 H Pulse Oximetry 97 Oxygen Delivery Fraction of Inspired Oxygen 01/07/24 19:45 01/07/24 19:50 01/07/24 21:24 Temperature Pulse Rate 68 74 Respiratory Rate 16 Blood Pressure Pulse Oximetry 96 Oxygen Delivery Room Air Fraction of Inspired Oxygen 01/08/24 00:00 01/08/24 02:10 01/08/24 02:18 Temperature 36.0 C L Pulse Rate 77 64 61 Respiratory Rate 20 14 14 Blood Pressure 108/40 L Pulse Oximetry 100 Oxygen Delivery Fraction of Inspired Oxygen 01/07/24 21:27 01/08/24 04:00 01/08/24 08:20 Temperature 36.4 C Pulse Rate 85 Respiratory Rate 20 Blood Pressure 147/65 H Pulse Oximetry 95 100 Oxygen Delivery Room Air Room Air Fraction of Inspired Oxygen 01/08/24 08:20 01/08/24 08:30 01/08/24 10:00 Temperature 36.2 C L Pulse Rate 70 72 78 Respiratory Rate 14 14 14 Blood Pressure 150/103 H Pulse Oximetry 97 Oxygen Delivery Fraction of Inspired Oxygen Intake/Output Intake/Output: Intake & Output 01/05/24 01/06/24 01/07/24 01/08/24 23:59 23:59 23:59 23:59 Intake Total 1550 932 250 100 Output Total 1870 260 898 Balance -320 592 -491 100 Meds/Results Medications: Active Medications Generic Name Dose Route Start Last Admin Trade Name Freq PRN Reason Stop Dose Admin Acetaminophen 650 mg 12/25/23 12:02 01/05/24 20:22 Acetaminophen 325 Mg Tablet PO 650 mg Q4H PRN Administration Mild Pain (
--- NOTE | 2024-01-08 14:20 | PCPTNOTE ---
Attempted to see patient this afternoon for PT, however patient would not follow through with exercises or attempts to perform bed mobility tasks. Patient actively moves LE's and repositions herself in bed. Patient completed only 10 reps of straight leg raises and then rolled over onto her side and refused to complete further exercises or activities for PT. RN assisted with repositioning patient up in bed for 30 degree tube feeding precautions. PT will continue to follow per plan of care.
[2024-01-08 14:29] LABS: Procalcitonin 0.6 ng/mL
--- NOTE | 2024-01-08 14:52 | PM.IMPN ---
Progress Note: A&P Assessment and Plan (1) Hyperkalemia: Code(s): E87.5 - Hyperkalemia Status: Acute (2) Diabetes mellitus with hyperglycemia: Code(s): E11.65 - Type 2 diabetes mellitus with hyperglycemia Status: Acute (3) Hypoxia: Code(s): R09.02 - Hypoxemia Status: Acute (4) Pseudohyponatremia: Code(s): R79.89 - Other specified abnormal findings of blood chemistry Status: Acute (5) UTI symptoms: Code(s): R39.9 - Unspecified symptoms and signs involving the genitourinary system Status: Acute (6) Leukocytosis: Code(s): D72.829 - Elevated white blood cell count, unspecified Status: Acute (7) Acute on chronic heart failure: Code(s): I50.9 - Heart failure, unspecified Status: Acute (8) Aphasia: Code(s): R47.01 - Aphasia Status: Acute Plan ED Course:72-year-old female with a history of type 2 diabetes mellitus with long-term use of insulin, hypertension, hyperlipidemia, ESRD on dialysis Sunday, CAD, diastolic CHF, atrial fibrillation on apixaban, restless leg syndrome, hypothyroidism, depression and anxiety, RAINA, peripheral neuropathy, history of cerebellar CVA remote presented with imbalance, GERD with Gongora's, history of esophageal stricture, COPD, peripheral neuropathy, history of DVT. She present to the ER for shortness of breath and generalized weakness. In the ER patient appeared weak on presentation. Her potassium was high at 7 received calcium gluconate and high-dose albuterol therapy. Dextrose and insulin. Laboratory evaluation showed WBC count 10.2. Urinalysis shows positive leukocyte esterase greater than 100 WBCs cells. No Bacteria. History has been inconsistent history. Unfortunately she is a poor historian The patient herself reports she missed Lasix, other family member has reported she missed dialysis. Hyperglycemia noted with blood sugar up to 572 on arrival to the ED. patient was also wheezy on presentation. She was started on ceftriaxone for UTI. She was admitted for further treatment. Acute CVA Sometime in the evening of 12/24 developed aphasia. -CT head was performed which demonstrated or infarct in the left cerebellum and bilateral basal ganglia. She was out of the window for tPA. She was already on apixaban as well. Neurology was consulted. MRI brain was performed on 12/26/2023 which documented acute infarct in the left hippocampus left posterior frontal lobe with no hemorrhage. Aspirin Plavix added. Echo ordered which has done yet to uncooperativeness. Eventually CTA was done 12/27/2023 which revealed complete occlusion of left M2 segment. Carotid Doppler with less than 50% stenosis in VEE and LICA. -With her stroke she is having aphasia as well as right-sided weakness dysphagia. Speech therapy PT OT on board. -Again on 01/02 night she developed worsening sx and CTA and CT performed due to new worsening Sx -CTA 01/03 :Extensive hypodensity in the left MCA distribution is compatible with evolving acute infarct. No intracranial hemorrhage evident. -CT done on 01/02: Large infarct in the expected distribution of left middle cerebral artery with worsening from 12/29/2023, likely acute or subacute -01/02 : Nocturist called [facility] (Please refer to cross cover note on 01/[address] Boston from [facility] recommended that given the large area of stroke bed infarct that it would actually be advisable to hold the patient's Eliquis for 4-7 days post acute neurologic changes. -01/03 :Today I called [facility] again as continuation of previous conversation and had an extensive conversation with and explained the new findings of the CTA. With the possibility of herniation of the brain, midline shift or hemorrhagic conversion in near future and with no Neurology in the backup we recommended on transferring the patient to be [facility]. reviewed all the images and called me back sayi
[2024-01-08 17:47] LABS: Glucose Point of Care 263 mg/dl (65-105)
[2024-01-08] MEDS: CEFEPIME 1 GM/NS 50 ML 1 GM/50 ML BAG IVPB (17:47)
[2024-01-08] MEDS: INSULIN GLARGINE (*BKC) 100 UNITS/ML 20 UNITS SUB-Q (20:53)
[2024-01-08] MEDS: AMIODARONE HCL 200 MG TABLET FEED TUBE (20:53)
[2024-01-09] VITALS (22 sets, daily range): BP systolic 89–197; BP diastolic 53–126; PULSE 72–107; RESP 16–20; TEMP 35.1–37; O2SAT 93–100
[2024-01-09] MEDS: INSULIN ASPART (*BKC) 100 UNITS/ML 8 UNITS SUB-Q ×3 (01:17→13:36)
[2024-01-09 01:59] LABS: Glucose Point of Care 227 mg/dl (65-105)
[2024-01-09] MEDS: IPRATROPIUM 0.5 MG/ALBUTEROL SULFATE 2.5 MG AMPUL.NEB 3 ML INHALATION ×3 (02:35→13:25)
[2024-01-09 06:09] LABS: Basophils Absolute Auto 0.2 K/mm3 (0.0-0.1); Basophils Percent Auto 1.1 % (0.2-1.2); Eosinophils Absolute Auto 0.7 K/mm3 (0-0.3); Eosinophils Percent Auto 4.2 % (0-4.4); Hematocrit 35.7 % (37.0-47.0); Hemoglobin 11.7 g/dL (12.0-15.0); Immature Granulocyte Absolute 0.43 K/mm3 (0.00-0.031); Immature Granulocyte Percent A 2.5 % (0-0.5); Lymphocytes Absolute Auto 2.55 K/mm3 (0.9-3.2); Lymphocytes Percent Auto 14.9 % (18.3-44.2); Mean Corpuscular HGB Conc 32.8 g/dl (32-36); Mean Corpuscular Hemoglobin 32.6 pg (26-34); Mean Corpuscular Volume 99.4 fl (80-100); Mean Platelet Volume 11.7 fl (7.4-10.4); Monocytes Absolute Auto 1.9 K/mm3 (0.1-0.6); Monocytes Percent Auto 11.2 % (2.6-8.5); Neutrophils Absolute Auto 11.3 K/mm3 (1.3-6.7); Neutrophils Percent Auto 66.1 % (45.5-73.1); Platelet Count Result 269 k/mm3 (150-375); Red Blood Count 3.59 M/mm3 (4.2-5.4); Red Cell Distribution Width 13.8 % (11.5-14.5); White Blood Count 17.1 K/mm3 (4.5-10.0)
[2024-01-09] MEDS: INSULIN ASPART (*BKC) 100 UNITS/ML SUB-Q (06:12)
[2024-01-09] MEDS: LEVOTHYROXINE SODIUM INJ 100 MCG/5 ML VIAL 87.5 MCG IV PUSH (06:12)
[2024-01-09] MEDS: metroNIDAZOLE 500 MG/ISO 100ML 500 MG/100 ML BAG 100 MG IVPB ×2 (06:12→13:50)
[2024-01-09 06:23] LABS: Alanine Aminotransferase 17 U/L (6-35); Albumin Level 4.4 g/dL (3.5-5.1); Alkaline Phosphatase 109 U/L (38-126); Anion Gap 15 mmol/L (4-12); Aspartate Amino Transferase 40 U/L (14-36); Bilirubin,Total 0.4 mg/dL (0.2-1.3); Blood Urea Nitrogen 53 mg/dL (7-17); Calcium 10.4 mg/dL (8.4-10.2); Carbon Dioxide 26 mmol/L (22-30); Chloride 96 mmol/L (98-107); Estimated CRCL calculation 7 ml/min; Estimated Glomerular Filt Rate 5; Glucose 331 mg/dL (65-110); Magnesium 2.3 mg/dL (1.6-2.3); Potassium 4.1 mmol/L (3.4-5.0); Sodium 137 mmol/L (137-145)
[2024-01-09 07:15] LABS: Glucose Point of Care 297 mg/dl (65-105)
--- NOTE | 2024-01-09 12:10 | PM.PNNEP ---
Progress Note: A&P Assessment and Plan (1) End stage renal disease: Code(s): N18.6 - End stage renal disease Status: Acute Assessment and Plan: HD today switching to M/W/F dialysis schedule in anticipation of transfer to [facility] follow electrolytes, volume status, and clearance (2) Acute CVA (cerebrovascular accident): Code(s): I63.9 - Cerebral infarction, unspecified Status: Acute Assessment and Plan: as noted by symptoms on evening of 12/24 and morning of 12/25 confirmed by MRI of brain CTA of head and neck noted repeat CTA of head and neck (on 01/03) reviewed Neurology recommendations noted continue supportive therapy (3) Aspiration pneumonia: Code(s): J69.0 - Pneumonitis due to inhalation of food and vomit Status: Acute Assessment and Plan: suggested by recent CXR and rising WBC MBS with evidence of aspiration follow repeat CXRs on antibiotics to cover (cefepime and Flagyl) - completed course (4) COPD (chronic obstructive pulmonary disease): Qualifiers: COPD type: unspecified COPD Qualified Code(s): J44.9 - Chronic obstructive pulmonary disease, unspecified Code(s): J44.9 - Chronic obstructive pulmonary disease, unspecified Status: Acute Assessment and Plan: appears compensated continue supportive therapy follow respiratory status (5) UTI (urinary tract infection): Code(s): N39.0 - Urinary tract infection, site not specified Status: Acute Assessment and Plan: admission UA highly suggestive follow culture data - urine culture with E.coli completed course of antibiotics (6) Hypertension: Code(s): I10 - Essential (primary) hypertension Status: Chronic Assessment and Plan: reasonable control at this time follow trend of hemodynamics (7) Anemia: Code(s): D64.9 - Anemia, unspecified Status: Acute Assessment and Plan: H/H supratherapeutic for ESRD holding RADHA at this time follow H/H (8) Type 2 diabetes mellitus with hyperglycemia: Qualifiers: Diabetes mellitus half-way insulin use: with half-way use Qualified Code(s): E11.65 - Type 2 diabetes mellitus with hyperglycemia; Z79.4 - tank terminal gauger (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 Subjective Date/time seen: 01/09/24 12:10 Interval history: Follow-up for end stage renal disease on hemodialysis. Tolerating dialysis treatment at the time of my visit (seen on HD at 12:00PM); no apparent distress noted; remains aphasic but does follow some commands albeit inconsistently; no apparent issues/events overnight or earlier this morning. Exam Narrative: General: elderly but WD/WN female in NAD Heart: normal S1 and S2; no rub Lungs: clear anteriorly; decreased at bases Abdomen: soft, nontender, nondistended, positive bowel sounds; + G-tube Extremities: no cyanosis or clubbing; no edema Skin: warm and dry Objective Data Vital Signs Vital Signs: Vital Signs Temp Pulse Resp BP Pulse Ox O2 Del Method FiO2 01/09/24 12:00 107 H 197/123 H 01/09/24 11:45 101 H 142/119 H 01/09/24 11:30 84 110/55 L 01/09/24 11:15 81 109/83 01/09/24 11:00 79 100/80 01/09/24 10:45 79 137/126 H 01/09/24 10:30 74 116/76 01/09/24 10:15 76 125/113 H 01/09/24 10:00 72 110/75 01/09/24 09:45 74 99/77 L 01/09/24 09:30 81 100/87 01/09/24 09:15 81 89/57 L 01/09/24 09:00 75 90/60 L 01/09/24 12:35 97.5 F L 76 16 91/68 L 100 01/09/24 08:53 75 100/53 L 01/09/24 14:00 96.9 F L 76 18 123/90 94 01/09/24 13:25 75 20 01/09/24 08:40 97.5 F L 76 20 110/53 L 100
--- NOTE | 2024-01-09 12:10 | P.PNNP_ITS ---
Progress Note: A&P Assessment and Plan (1) End stage renal disease: Code(s): N18.6 - End stage renal disease Status: Acute Assessment and Plan: * HD today * switching to M// dialysis schedule in anticipation of transfer to [facility] * follow electrolytes, volume status, and clearance (2) Acute CVA (cerebrovascular accident): Code(s): I63.9 - Cerebral infarction, unspecified Status: Acute Assessment and Plan: * as noted by symptoms on evening of 12/24 and morning of 12/25 * confirmed by MRI of brain * CTA of head and neck noted * repeat CTA of head and neck (on 01/03) reviewed * Neurology recommendations noted * continue supportive therapy (3) Aspiration pneumonia: Code(s): J69.0 - Pneumonitis due to inhalation of food and vomit Status: Acute Assessment and Plan: * suggested by recent CXR and rising WBC * MBS with evidence of aspiration * follow repeat CXRs * on antibiotics to cover (cefepime and Flagyl) - completed course (4) COPD (chronic obstructive pulmonary disease): Qualifiers: COPD type: unspecified COPD Qualified Code(s): J44.9 - Chronic obstructive pulmonary disease, unspecified Code(s): J44.9 - Chronic obstructive pulmonary disease, unspecified Status: Acute Assessment and Plan: * appears compensated * continue supportive therapy * follow respiratory status (5) UTI (urinary tract infection): Code(s): N39.0 - Urinary tract infection, site not specified Status: Acute Assessment and Plan: * admission UA highly suggestive * follow culture data - urine culture with E.coli * completed course of antibiotics (6) Hypertension: Code(s): I10 - Essential (primary) hypertension Status: Chronic Assessment and Plan: * reasonable control at this time * follow trend of hemodynamics (7) Anemia: Code(s): D64.9 - Anemia, unspecified Status: Acute Assessment and Plan: * H/H supratherapeutic for ESRD * holding RADHA at this time * follow H/H (8) Type 2 diabetes mellitus with hyperglycemia: Qualifiers: Diabetes mellitus terminal manager insulin use: with mcfp use Qualified Code(s): E11.65 - Type 2 diabetes mellitus with hyperglycemia; Z79.4 - jail (current) use of insulin Code(s): E11.65 - Type 2 diabetes mellitus with hyperglycemia Status: Chronic Assessment and Plan: * follow accu-cheks * glycemic control per hospitalists Will continue to follow. Subjective Date/time seen: 01/09/24 12:10 Interval history: Follow-up for end stage renal disease on hemodialysis. Tolerating dialysis treatment at the time of my visit (seen on HD at 12:00PM); no apparent distress noted; remains aphasic but does follow some commands albeit inconsistently; no apparent issues/events overnight or earlier this morning. Exam Narrative: General: elderly but WD/WN female in NAD Heart: normal S1 and S2; no rub Lungs: clear anteriorly; decreased at bases Abdomen: soft, nontender, nondistended, positive bowel sounds; + G-tube Extremities: no cyanosis or clubbing; no edema Skin: warm and dry Objective Data Vital Signs Vital Signs: Vital Signs Temp Pulse Resp BP Pulse Ox O2 Del Method FiO2 01/09/24 12:00 107 H 197/123 H 01/09/24 11:45 101 H 142/119 H 01/09/24 11:30 84 110/5
[2024-01-09 13:25] LABS: Glucose Point of Care 185 mg/dl (65-105)
[2024-01-09] MEDS: TOLNAFTATE 1% POWDER 45 GM BTL 1 APPLIC TOPICAL (13:34)
[2024-01-09] MEDS: PANTOPRAZOLE SODIUM IV 40 MG VIAL IV PUSH (13:34)
[2024-01-09] MEDS: FLUTICASONE PROPIONATE 0.05% NA SPR 16 GM BTL (*BKC) 2 SPRAY NASAL (13:34)
[2024-01-09] MEDS: ASPIRIN 81 MG CHEWABLE TABLET FEED TUBE (13:34)
[2024-01-09] MEDS: ROSUVASTATIN 5 MG TABLET FEED TUBE (13:34)
[2024-01-09] MEDS: rOPINIRole HCL 1 MG TABLET BY MOUTH (13:34)
[2024-01-09] MEDS: CALCIUM ACETATE 667 MG TABLET FEED TUBE (13:34)
--- NOTE | 2024-01-09 14:38 | PM.DS ---
DS: Admitting Diagnosis Discharge Date 01/09/24 Admitting Diagnosis Gen weakness DS: Discharge Diagnosis Discharge Diagnosis (1) Acute CVA (cerebrovascular accident): Code(s): I63.9 - Cerebral infarction, unspecified Status: Acute DS: Summary Hospital Course Hospital Course: [facility] [address] [place] [id number] Hospitalist Progress Note Signed Patient: Gregoria Rae MR#: [id number] : 1950 Acct:[id number] Age: 73 ADM Date: 12/26/23 Loc: [id number]: Varghese Salmeron M.D. cc: ~ Progress Note: A&P Assessment and Plan (1) Hyperkalemia: Code(s): E87.5 - Hyperkalemia Status: Acute (2) Diabetes mellitus with hyperglycemia: Code(s): E11.65 - Type 2 diabetes mellitus with hyperglycemia Status: Acute (3) Hypoxia: Code(s): R09.02 - Hypoxemia Status: Acute (4) Pseudohyponatremia: Code(s): R79.89 - Other specified abnormal findings of blood chemistry Status: Acute (5) UTI symptoms: Code(s): R39.9 - Unspecified symptoms and signs involving the genitourinary system Status: Acute (6) Leukocytosis: Code(s): D72.829 - Elevated white blood cell count, unspecified Status: Acute (7) Acute on chronic heart failure: Code(s): I50.9 - Heart failure, unspecified Status: Acute (8) Aphasia: Code(s): R47.01 - Aphasia Status: Acute Plan ED Course:72-year-old female with a history of type 2 diabetes mellitus with long-term use of insulin, hypertension, hyperlipidemia, ESRD on dialysis Sunday, CAD, diastolic CHF, atrial fibrillation on apixaban, restless leg syndrome, hypothyroidism, depression and anxiety, RAINA, peripheral neuropathy, history of cerebellar CVA remote presented with imbalance, GERD with Gongora's, history of esophageal stricture, COPD, peripheral neuropathy, history of DVT. She present to the ER for shortness of breath and generalized weakness. In the ER patient appeared weak on presentation. Her potassium was high at 7 received calcium gluconate and high-dose albuterol therapy. Dextrose and insulin. Laboratory evaluation showed WBC count 10.2. Urinalysis shows positive leukocyte esterase greater than 100 WBCs cells. No Bacteria. History has been inconsistent history. Unfortunately she is a poor historian The patient herself reports she missed Lasix, other family member has reported she missed dialysis. Hyperglycemia noted with blood sugar up to 572 on arrival to the ED. patient was also wheezy on presentation. She was started on ceftriaxone for UTI. She was admitted for further treatment. Acute CVA Sometime in the evening of 12/24 developed aphasia. -CT head was performed which demonstrated or infarct in the left cerebellum and bilateral basal ganglia. She was out of the window for tPA. She was already on apixaban as well. Neurology was consulted. MRI brain was performed on 12/26/2023 which documented acute infarct in the left hippocampus left posterior frontal lobe with no hemorrhage. Aspirin Plavix added. Echo ordered which has done yet to uncooperativeness. Eventually CTA was done 12/27/2023 which revealed complete occlusion of left M2 segment. Carotid Doppler with less than 50% stenosis in VEE and LICA. -With her stroke she is having aphasia as well as right-sided weakness dysphagia. Speech therapy PT OT on board. -Again on 01/02 night she developed worsening sx and CTA and CT performed due to new worsening Sx -CTA 01/03 :Extensive hypodensity in the left MCA distribution is compatible with evolving acute infarct. No intracranial hemorrhage evident. -CT done on 01/02: Large infarct in the expected distribution of left middle cerebral artery with worsening from 12/29/2023, likely acute or subacute -01/02 : Nocturist called [facility] (Please
[2024-01-09 16:00] LABS: SARS-CoV-2 RNA PCR Negative (Negative)
== END 2024-01-09 17:50 | DRG 64 ==
LOC: ANHED 08:53 → ANHIMU 12:14 → ANHICU 12-29 21:39 → ANH2MED 01-07 14:16
PROVIDERS: General Practice; Hospitalist; Internal Medicine; Internal Medicine Gastroenterology; Internal Medicine Nephrology; Psychiatry & Neurology Neurology; Student in an Organized Health Care Education/Training Program; Admitting Provider Internal Medicine; Emergency Provider Student in an Organized Health Care Education/Training Program; PCP Family Medicine; Visit Provider Internal Medicine
PROC: 0DH63UZ Insertion of Feeding Device into Stomach, Percutaneous Approach (ICD-10-PCS; CPT 43246; principal; 2024-01-02 15:30)
DX: I63.512 Cerebral infarction due to unspecified occlusion or stenosis of left middle cerebral artery (principal); I50.33 Acute on chronic diastolic (congestive) heart failure; N18.6 End stage renal disease; J96.00 Acute respiratory failure, unspecified whether with hypoxia or hypercapnia; J96.01 Acute respiratory failure with hypoxia; J96.90 Respiratory failure, unspecified, unspecified whether with hypoxia or hypercapnia; I13.2 Hypertensive heart and chronic kidney disease with heart failure and with stage 5 chronic kidney disease, or end stage renal disease; J44.1 Chronic obstructive pulmonary disease with (acute) exacerbation; J45.901 Unspecified asthma with (acute) exacerbation; N39.0 Urinary tract infection, site not specified; G81.91 Hemiplegia, unspecified affecting right dominant side; R47.01 Aphasia; E11.22 Type 2 diabetes mellitus with diabetic chronic kidney disease; E87.5 Hyperkalemia; E11.42 Type 2 diabetes mellitus with diabetic polyneuropathy; G25.81 Restless legs syndrome; R13.10 Dysphagia, unspecified; R29.810 Facial weakness; I48.0 Paroxysmal atrial fibrillation; Z20.822 Contact with and (suspected) exposure to COVID-19; K29.70 Gastritis, unspecified, without bleeding; I25.10 Atherosclerotic heart disease of native coronary artery without angina pectoris; E78.5 Hyperlipidemia, unspecified; R29.702 NIHSS score 2; D53.9 Nutritional anemia, unspecified; F32.A Depression, unspecified; G47.33 Obstructive sleep apnea (adult) (pediatric); F41.9 Anxiety disorder, unspecified; K21.9 Gastro-esophageal reflux disease without esophagitis; B96.20 Unspecified Escherichia coli [E. coli] as the cause of diseases classified elsewhere; E03.9 Hypothyroidism, unspecified; Z99.2 Dependence on renal dialysis; Z79.4 Long term (current) use of insulin; Z79.01 Long term (current) use of anticoagulants; Z86.718 Personal history of other venous thrombosis and embolism; Z87.891 Personal history of nicotine dependence; Z86.73 Personal history of transient ischemic attack (TIA), and cerebral infarction without residual deficits
CPT/HCPCS: 36415; 36600; 43246; 70450; 70496; 70498; 70551; 71045; 71046; 80048; 80053; 80061; 81001; 81291; 82010; 82306; 82375; 82607; 82746; 82805; 82948; 83036; 83050; 83735; 83880; 84100; 84145; 84207; 84425; 84443; 85025; 85027; 85610; 85730; 86706; 87040; 87077; 87086; 87088; 87186; 87340; 87493; 87635; 87637; 92507; 92523; 92526; 92610; 92611; 93005; 93880; 94640; 94660; 96365; 96366; 96375; 97110; 97112; 97163; 97167; 97530; 97535; 99285; A9270; C8929; G0257; G0378; J0612; J0650; J0690; J0692; J0696; J1644; J1815; J1836; J1940; J2060; J2405; J2470; J2543; J2704; J7030; J7040; J7512; P9047; Q9957; Q9967

== ENCOUNTER 2024-05-20 12:03 | Outpatient (CLI) | payer MEDICARE, SELFPAY ==
[2024-05-20 12:54] LABS: Basophils Absolute Auto 0.1 K/mm3 (0.0-0.1); Eosinophils Absolute Auto 0.6 K/mm3 (0-0.3); Eosinophils Percent Auto 7.6 % (0-4.4); Hematocrit 34.8 % (37.0-47.0); Hemoglobin 10.9 g/dL (12.0-15.0); Immature Granulocyte Absolute 0.03 K/mm3 (0.00-0.031); Immature Granulocyte Percent A 0.4 % (0-0.5); Lymphocytes Absolute Auto 1.79 K/mm3 (0.9-3.2); Lymphocytes Percent Auto 24.6 % (18.3-44.2); Mean Corpuscular HGB Conc 31.3 g/dl (32-36); Mean Corpuscular Hemoglobin 30.1 pg (26-34); Mean Corpuscular Volume 96.1 fl (80-100); Mean Platelet Volume 11.4 fl (7.4-10.4); Monocytes Absolute Auto 0.9 K/mm3 (0.1-0.6); Monocytes Percent Auto 12.6 % (2.6-8.5); Neutrophils Absolute Auto 3.9 K/mm3 (1.3-6.7); Neutrophils Percent Auto 53.8 % (45.5-73.1); Platelet Count Result 245 k/mm3 (150-375); Red Blood Count 3.62 M/mm3 (4.2-5.4); Red Cell Distribution Width 13.3 % (11.5-14.5); White Blood Count 7.3 K/mm3 (4.5-10.0)
[2024-05-20 14:08] LABS: Alanine Aminotransferase 11 U/L (6-35); Albumin Level 3.7 g/dL (3.5-5.1); Alkaline Phosphatase 88 U/L (38-126); Anion Gap 11 mmol/L (4-12); Aspartate Amino Transferase 19 U/L (14-36); Bilirubin,Total 0.9 mg/dL (0.2-1.3); Blood Urea Nitrogen 22 mg/dL (7-17); Calcium 8.6 mg/dL (8.4-10.2); Carbon Dioxide 34 mmol/L (22-30); Chloride 92 mmol/L (98-107); Estimated Glomerular Filt Rate 12; Glucose 102 mg/dL (65-110); Potassium 3.5 mmol/L (3.4-5.0); Sodium 137 mmol/L (137-145)
[2024-05-20 19:07] LABS: Hemoglobin A1C 6.1 % (<5.7)
== END 2024-05-20 12:04 | disposition home or self-care (01) ==
PROVIDERS: PCP Family Medicine; Visit Provider Physician Assistant
DX: I13.2 Hypertensive heart and chronic kidney disease with heart failure and with stage 5 chronic kidney disease, or end stage renal disease (principal); N18.6 End stage renal disease; Z99.2 Dependence on renal dialysis; I50.9 Heart failure, unspecified; I48.91 Unspecified atrial fibrillation; E03.9 Hypothyroidism, unspecified; Z79.4 Long term (current) use of insulin
CPT/HCPCS: 36415; 80053; 83036; 84443; 85025

== ENCOUNTER 2024-07-03 12:57 | Outpatient (CLI) | payer MEDICARE, SELFPAY | END 2024-07-03 12:58 | disposition home or self-care (01) | LOC: ANHAUDIO 12:58 | PROVIDERS: PCP Family Medicine; Visit Provider Physician Assistant | DX: H91.90 Unspecified hearing loss, unspecified ear (principal); H93.8X1 Other specified disorders of right ear; H93.8X2 Other specified disorders of left ear | CPT/HCPCS: 92555; 92567; 92587 ==

== ENCOUNTER 2024-07-16 14:34 | Emergency (ER) | payer MEDICARE, SELFPAY ==
--- NOTE | ~2024-07-16 | CT_ITS ---
EXAMINATION: CT cervical spine wo con DATE: 07/16/2024 16:11 INDICATION: Neck injury. Fall. TECHNIQUE: Computed tomography (CT) of the cervical spine was performed without intravenous contrast. Automated exposure control and iterative reconstruction technique were employed. The dose-length pro duct was 411.21 mGy-cm. COMPARISON: None FINDINGS: There is a right otomastoid effusion. Alignment is normal. Vertebral body heights are susanna l. There is severely decreased disc height from C4-C5 through C6-C7. The following disc levels are sp ecifically discussed: C2-C3: There is no uncovertebral joint osteoarthritis. There is mild bilateral facet joint osteoarthr itis. There is no neural foraminal stenosis. There is no central canal stenosis. C3-C4: There is mild bilateral uncovertebral joint osteoarthritis. There is mild bilateral facet join t osteoarthritis. There is mild right neural foraminal stenosis. There is mild central canal stenosis . C4-C5: There is severe bilateral uncovertebral joint osteoarthritis. There is mild bilateral facet rodríguez int osteoarthritis. There is mild bilateral neural foraminal stenosis. There is mild central canal st enosis. C5-C6: There is severe bilateral uncovertebral joint osteoarthritis. There is mild bilateral facet rodríguez int osteoarthritis. There is mild bilateral neural foraminal stenosis. There is mild central canal st enosis. C6-C7: There is moderate right and severe left uncovertebral joint osteoarthritis. There is moderate bilateral facet joint osteoarthritis. There is no neural foraminal stenosis. There is mild central ca nal stenosis. C7-T1: There is no uncovertebral joint osteoarthritis. There is moderate bilateral facet joint osteoa rthritis. There is mild right neural foraminal stenosis. There is no central canal stenosis. IMPRESSION: 1. No fracture. 2. Severe cervical spondylosis. Reviewed, dictated and finalized at location B.
--- NOTE | ~2024-07-16 | CT_ITS ---
CT brain wo con Ordering provider: Enoch Lugo MD History: 73 years Female with . Fall . Comparison: January 04, 2024 Technique: CT of the head without contrast. Radiation reduction technique utilized. The dose-length p roduct was 605. mGy-cm. FINDINGS: BRAIN PARENCHYMA AND CSF SPACES: Mild brain atrophy with deep white matter ischemic changes. 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 Old lacunar infarct in the left cerebellar he misphere. No midline shift, mass effect or hemorrhage. The brain parenchyma and CSF spaces are other mcpherson normal. Empty sella turcica. VISUALIZED PARANASAL SINUSES: Well aerated. MASTOIDS: Effusion in the right mastoid air cells. BONES: The bones appear intact. SOFT TISSUES: Visualized nasopharynx is normal. Superficial soft tissues are normal. IMPRESSION: No acute intracranial findings. Reviewed, dictated and finalized at location A.
[2024-07-16 14:28] VITALS: BP 143/38; PULSE 61; TEMP 36.7; O2SAT 96
--- NOTE | 2024-07-16 16:45 | ED_ITS ---
HPI - General Adult General Chief complaint: Fall Stated complaint: GLF Time Seen by Provider: 07/16/24 15:17 History of Present Illness HPI narrative: 73-year-old female with history of CVA and aphasia presenting after a fall. Gregoria cannot communicate very well due to previous strokes. She is not indicating that she has any pain or has any complaints this time. Evidently she had a fall yesterday and has developed bruising over her forehead today. While she was at dialysis they recommended she come to the ED to be evaluated. Patient has expressive aphasia from her stroke. She has residual right arm and right leg weakness. Related Data Home Medications ?Medication ?Instructions ?Recorded ?Confirmed ?Last Taken ?Type fluticasone propionate 50 2 spray intranasal DAILY 03/19/19 07/04/24 06/25/23 History mcg/actuation nasal spray,suspension insulin aspart U-100 100 unit/mL See Rx Instructions .Route .COMPLEX 05/20/24 07/04/24 Unknown History (3 mL) subcutaneous pen (Novolog FlexPen U-100 Insulin aspart) lorazepam 0.5 mg tablet (Ativan) 0.5 mg PO DAILY PRN 07/04/24 07/04/24 Unknown History Allergies Allergy/AdvReac Type Severity Reaction Status Date / Time nickel Allergy Intermediate hives and Verified 06/12/24 13:35 itchy rash Sulfa (Sulfonamide Allergy Intermediate Urticaria Verified 06/12/24 13:35 Antibiotics) and hives Calcium Channel Blocking AdvReac Intermediate STATES Verified 06/12/24 13:35 Agents-Dih CANNOT TAKE SINCE SHE HAS ASTHMA diphenhydramine AdvReac Intermediate restless Verified 06/12/24 13:35 legs nifedipine AdvReac Intermediate palpitation Verified 06/12/24 13:35 s Lzbqevs-VDC-ZdF Reductase AdvReac Intermediate muscle Verified 06/12/24 13:35 Inhibitor (Bmbcuzc-Ycn-Pha cramps Reductase Inhibitor) REPLACED BY [facility] Past Medical History Medical History Asthma-COPD overlap syndrome Aspiration into airway Left-sided cerebrovascular accident (CVA) ESRD on hemodialysis Chronic anticoagulation Obstructive sleep apnea Paroxysmal atrial fibrillation Hypothyroidism Insulin dependent type 2 diabetes mellitus Cerebrovascular accident Generalized anxiety disorder Deep venous thrombosis Chronic obstructive pulmonary disease Community acquired pneumonia due to Haemophilus influenzae 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 Chronic diastolic (congestive) heart failure Coronary artery disease involving [place] heart without angina pectoris Depression GERD without esophagitis Peripheral polyneuropathy Surgical History Surgical History History of tracheostomy History of cataract extraction History of tonsillectomy History of cholecystectomy History of gastrostomy tube placement and removal Family History Family History Father Hypertension Family history of coronary artery disease Sibling Hypertension Family history of coronary artery disease Mother Cerebrovascular accident Other Asthma Depression Family history of Alzheimer's disease Family history of arthritis Family history of cardiovascular disease Family history of lymphoma Family history of obesity Family history of seizure disorder Social History Social History Social History: Surrogate medical decision maker: Anjum (spouse) or Gwen (daughter) Kyra. Code status: Full code. Smoking packs per day: 2 Smoking cigarettes per day: 40.0 Years smoked: 30 Smoking pack-years: 60.00 Smoking status: Former smoker Tobacco type: cigarettes Second hand tobacco smoke exposure: No Smoking end date: 05/07/89 Alcohol intake: unknown Alcohol use details: special occasions Substance use: former Substance use type: marijuana Last use: 01/05/23 Do You Feel Safe in your Home?: Yes Lack of Transportation: YES Lack of Food: Never True Current Housing: I Have Housing Concerned About Future Housing: No Difficulty Paying Gas/Electric Bills: No Difficulty Paying for Meds: No Currently Unemployed: No Education: High School Diploma/GED Difficulty w/ Childcare or Family Care: No Living arrangements: with family Occupation/Education: retired Spiritual care concerns: No Exam Narrative: APPEARANCE: No apparent distress. Head: Bruising over the patient's right forehead EYES: EOMI, PERRL NOSE: Atraumatic NECK: Trachea midline RESPIRATORY: No increased rate of breathing clear to auscultation CARDIOVASCULAR: RRR, no peripheral edema ABDOMINAL: Non-distended soft nontender no guarding rebound MUSCULOSKELETAl: No obvious deformities NEURO: Alert. Expressive aphasia, Cranial nerves 2-12 grossly intact. Sensation light touch, motor function cerebellar function intact for the left extremities. Right arm and right leg weakness. SKIN:: Warm, dry. Normal color PSYCHIATRIC: Normal affect Course Vital Signs Vital signs: Vital Signs Temperature 98.0 F 07/16/24 14:28 Pulse Rate 61 07/16/24 14:28 Blood Pressure 143/38 H 07/16/24 14:28 Pulse Oximetry 96 07/16/24 14:28 Temperature 98.0 F 07/16/24 14:28 Pulse Rate 61 07/16/24 14:28 Blood Pressure 143/38 H 07/16/24 14:28 Pulse Oximetry 96 07/16/24 14:28 Medical Decision Making MDM Narrative Medical decision making narrative: -Course: 73-year-old female presenting after a fall. CT head and C-spine were negative for acute traumatic injury.. I discussed whether we would want to do further workup for the fall and they have declined. They just want to make sure that she is not have a brain bleed. Patient will be discharged with return precautions. Vital Signs Vital Signs: Vital Signs Temperature 98.0 F 07/16/24 14:28 Pulse Rate 61 07/16/24 14:28 Blood Pressure 143/38 H 07/16/24 14:28 Pulse Oximetry 96 07/16/24 14:28 Temperature 98.0 F 07/16/24 14:28 Pulse Rate 61 07/16/24 14:28 Blood Pressure 143/38 H 07/16/24 14:28 Pulse Oximetry 96 07/16/24 14:28 Discharge Plan Discharge Clinical Impression: Fall, Bruising Patient Disposition: Home, Self-Care Condition: Stable Instructions: Antibiotic Form, Fall Prevention (ED) Additional Instructions: Gregoria was seen in the ED after a fall. Her CT head and C-spine were negative for brain bleeds or acute traumatic injuries. If she develops any new or worsening symptoms please return to the ED for re-evaluation. Patient Language: Other Prescriptions: No Action insulin aspart U-100 [Novolog FlexPen U-100 Insulin] 100 unit/mL (3 mL) insulin pen See Rx Instructions .ROUTE .COMPLEX MDD 60 Rx Instructions: sliding scale albuterol sulfate [Ventolin HFA] 90 mcg/actuation HFA aerosol inhaler See Rx Instructions .ROUTE .COMPLEX Qty: 18 6RF Dose Instruction: INHALE 2 PUFFS BY MOUTH 4 TIMES DAILY NEEDED FOR SHORTNESS OF BREATH OR WHEEZING. Rx Instructions: INHALE 2 PUFFS BY MOUTH 4 TIMES DAILY NEEDED FOR SHORTNESS OF BREATH OR WHEEZING. metoprolol succinate 50 mg tablet extended release 24 hr 50 mg PO QAM Qty: 90 0RF amiodarone 200 mg tablet 200 mg PO HS Qty: 30 0RF Eliquis 2.5 mg tablet See Rx Instructions PO .COMPLEX Qty: 180 3RF Dose Instruction: TAKE 1 TABLET TWICE DAILY Rx Instructions: TAKE 1 TABLET TWICE DAILY orally ; atorvastatin [Lipitor] 20 mg tablet 20 mg PO HS Qty: 90 1RF lorazepam [Ativan] 0.5 mg tablet 0.5 mg PO DAILY PRN montelukast 10 mg tablet 10 mg PO DAILY Qty: 90 3RF ropinirole 2 mg tablet See Rx Instructions PO .COMPLEX Qty: 180 3RF Dose Instruction: TAKE 1 TABLET TWICE DAILY Rx Instructions: TAKE 1 TABLET TWICE DAILY orally ; trazodone 50 mg tablet 50 mg PO QHS Qty: 30 0RF fluticasone propionate 50 mcg/actuation spray,suspension 2 spray NASAL DAILY albuterol sulfate 2.5 mg /3 mL (0.083 %) solution for nebulization 2.5 mg inhalation Q4-6H PRN (Reason: shortness of breath or wheezing) Qty: 90 6RF insulin glargine [Lantus Solostar U-100 Insulin] 100 unit/mL (3 mL) insulin pen See Rx Instructions .ROUTE .COMPLEX Qty: 30 0RF Dose Instruction: INJECT 28 UNITS UNDER THE SKIN AT BEDTIME Rx Instructions: INJECT 28 UNITS UNDER THE SKIN AT BEDTIME budesonide-formoterol 160-4.5 mcg/actuation HFA aerosol inhaler 2 puff inhalation Q12H Qty: 10.2 3RF levothyroxine 175 mcg tablet 175 mcg PO DAILY Qty: 90 1RF Follow-up/Referrals: Rikki Amezquita MD [Primary Care Provider] -
--- OUTSIDE RECORDS SUMMARY | 2024-07-16 17:43 | XMS_ITS | Clinical Summary ---
Author Organization [facility] Address [address] [place] [address] Care Team Providers Care Program Advisor Name Role Phone Family [facility] And Primary Care Provider Allergies Active Allergy Reactions Criticality Noted Date Comments Diphenhydramine Other (See Comments) Low 03/09/2022 Restless legs Restless leg Nickel Rash Medium 03/15/2022 Nifedipine Medium 03/15/2022 Other reaction(s): Chest tightness Other reaction(s): Chest tightness Statins Medium 04/22/2022 Other reaction(s): Muscle pain Sulfa Antibiotics Hives Medium 03/09/2022 Sulfur Hives Medium 04/22/2022 Medications montelukast (SINGULAIR) 10 MG tablet 1 tablet (10 mg total) by PO/Per Tube route every morning. 30 tablet 3 Active metoprolol tartrate (LOPRESSOR) 25 MG tablet 1 tablet (25 mg total) by PO/Per Tube route in the morning and 1 tablet (25 mg total) before bedtime. 60 tablet 3 Active amiodarone (PACERONE) 200 MG tablet 1 tablet (200 mg total) by PO/Per Tube route in the morning. 30 tablet 3 Active gabapentin (NEURONTIN) 100 MG capsule 1 capsule (100 mg total) by PO/Per Tube route nightly. 30 capsule 3 Active nitroglycerin (NITROSTAT) 0.[address] 1 tablet (0.4 mg total) under the tongue every 5 (five) minutes as needed for chest pain. 10 tablet 3 Active insulin glargine (LANTUS) 100 UNIT/ML injectionIndica tions:Hyperglyc emia,Type 2 Diabetes Mellitus,PLEASE PROVIDE WITH INSULIN PEN AND NEEDLES Inject 30 Units under the skin daily with breakfast for 30 days Indications: High Blood Sugar, Type 2 Diabetes, PLEASE PROVIDE WITH INSULIN PEN AND NEEDLES. 10 mL 3 Active insulin lispro 100 UNIT/ML injectionIndica tions:Hyperglyc emia,Type 2 Diabetes Mellitus,pLEASE PROVIDE WITH INSULIN PEN AND NEEDLES. Inject 10 Units under the skin in the morning and 10 Units at noon and 10 Units in the evening. Inject with meals. Indications: High Blood Sugar, Type 2 Diabetes, pLEASE PROVIDE WITH INSULIN PEN AND NEEDLES. 10 mL 3 Active insulin syringe 1 ML misc Inject 1 Syringe under the skin Daily before breakfast. 10 each 3 Active lidocaine (XYLOCAINE) 2 % jelly Apply topically 3 (three) times a day for 30 days. APPLY TO THE G TUBE SITE FOR PAIN. 4 mL 3 Active hydrOXYzine (ATARAX) 25 MG tablet 1 tablet (25 mg total) by PO/Per Tube route 3 (three) times a day as needed for anxiety. 20 tablet 3 Active albuterol (PROVENTIL HFA) 108 (90 Base) MCG/ACT inhaler Inhale 1 puff Every 6 hours as needed. for wheezing or shortness of breath. 3.7 g 3 Active Active Problems Problem Noted Date Diagnosed Date Debility 05/13/2022 Acute on chronic diastolic congestive heart fail ure 04/24/2022 End stage renal disease 04/24/2022 Pleural effusion 04/24/2022 Deep venous thrombosis 04/24/2022 Chronic obstructive pulmonar y disease with (acute) lower respiratory infection 04/24/2022 Acute hypoxemic respiratory failure 04/22/2022 Immunizations Immunization Administration Dates Next Due Moderna SARS-CoV-2 Vaccination 05/26/2020 Social History Tobacco Use Types Packs/Day Years Used Date Smoking Tobacco: Never Smokeless Tobacco: Never Tobacco Cessation:Counseling Given: Not Answered Comments Unknown Sex and Gender Information Value Date Recorded Sex Assigned at Not on file Legal Sex Female 11:00 AM EST Gender Identity Not on file Sexual Orientation Not on file Last Filed Vital Signs Vital Sign Reading Time Taken Comments Blood Pressure 129/59 05/28/2022 8:00 AM HEATING AND VENTILATING WORKER Pulse 76 05/28/2022 8:00 AM HEATING AND VENTILATING WORKER Temperature 36.7 C (98 F) 05/28/2022 8:00 AM HEATING AND VENTILATING WORKER Respiratory Rate 20 05/28/2022 8:00 AM HEATING AND VENTILATING WORKER Oxygen Saturation 96% 05/28/2022 8:00 AM HEATING AND VENTILATING WORKER Inhaled Oxygen Concentration - - Weight 111.6 kg (246 lb) 05/28/2022 6:37 AM HEATING AND VENTILATING WORKER Height 162.6 cm (5' 4 ) 05/13/2022 5:19 PM HEATING AND VENTILATING WORKER Body Mass Index 42.23 05/13/2022 5:19 PM HEATING AND VENTILATING WORKER Plan of Treatment Health Maintenance Due Date Last Done Comments CT Colonography 1950 Colonoscopy 1950 Colorectal Cancer Screening 1950 FIT-DNA (Cologuard) 1950 FIT 1950 FOBT 1950 Sigmoidoscopy 1950 Annual Visit Topic 1951 DTaP/Tdap/Td Vaccines (1 - Tdap) 12/27/1955 Hepatitis C Screening 1966 Pneumococcal Vaccine: 65+ Ye ars (1 of 4 - PCV) 12/27/1967 HIB Vaccines Aged Out No longer eligi ble based on patient's age to complete this topic HPV Vaccines Aged Out No longer eligi ble based on patient's age to complete this topic Hepatitis A Vaccines Aged Out No long er eligible based on patient's age to complete this topic Hepatitis B Vaccines Aged Out No long er eligible based on patient's age to complete this topic IPV Vaccines Aged Out No longer eligi ble based on patient's age to complete this topic Meningococcal Vaccine Aged Out No clarisa penelope eligible based on patient's age to complete this topic Advance Directives * Full Resuscitation (Latest Code Status on File) Date Activated Date Inactivated Comments 05/13/2022 6:26 PM 05/28/2022 2:07 PM * Full Resuscitation Date Activated Date Inactivated Comments 04/22/2022 6:45 PM 05/13/2022 6:03 PM Care Teams Program Advisor Relationship Specialty Start Date End Date Amezquita [facility] [address] [place] [address] (work) PCP - General 05/14/22
--- OUTSIDE RECORDS SUMMARY | 2024-07-16 17:43 | XMS_ITS | Encounter Summary ---
Author Organization [facility] Address [address] [place] [address] Care Team Providers Care Vacuum Technician Name Role Phone Rikki Amezquita MD Primary Care Provider [phone] Encounter Details Date Type Department Care Team (Latest Contact Info) Description 05/13/2022 3:00 PM INTEGRATED PEST MANAGEMENT TECHNICIAN Hospital Encounter [facility] [address] [place] [address] Allison Patrick MD [facility] [employer] Social [...] more drinks on one occasion? Never 10/05/2022 Sex and Gender Information Value Date Recorded Sex Assigned at Not on file Gender Identity Not on file Sexual Orientation Not on file documented as of this encounter Plan of Treatment Upcoming Encounters Date Type Department Care Team (Late st Contact Info) Description 08/19/2024 2:45 PM CDT Appointment [facility] V[facility] Services [address] [facility] [facility] [place] [address] [place] [address] [address] [place] [id number] [address] documented as of this encounter Visit Diagnoses Not on filedocumented in this encounter Additional Health Concerns Infection Onset Date Last Indicated Resolved Time CDIFF Under Investigation 05/23/2022 05/23/2022 8:26 AM INTEGRATED PEST MANAGEMENT TECHNICIAN COVID-19 Under Investigation 05/27/2022 05/27/2022 05/27/2022 11:54 PM INTEGRATED PEST MANAGEMENT TECHNICIAN documented as of this encounter Care Teams Vacuum Technician Relationship Specialty Start Date End Date Rikki Amezquita MD [address] [place] [address] PCP - General 11/28/21 documented as of this encounter
--- OUTSIDE RECORDS SUMMARY | 2024-07-16 17:43 | XMS_ITS | CONTINUITY OF CARE DOCUMENT ---
Author Name dede aguayo Address Unknown Organization [facility] Address [address] [place] [address] Phone [phone] Care Team Providers Care Lumber Mover Name Role Phone Stalin Donovan MD Unavailable [phone] Stalin Donovan MD Unavailable INSURANCE PROVIDERS Payer name Policy type / Coverage type [place] red constitution party ID [facility] Blue [facility] [id number] [place] Medicare [id number]
--- OUTSIDE RECORDS SUMMARY | 2024-07-16 17:43 | XMS_ITS | Referral Summary ---
Author Organization [facility] [employer] Address [address] [place] [address] Care Team Providers Care Hamper Maker Machine Name Role Phone Rikki Amezquita MD Primary Care Provider [phone] Source Comments [facility],non-owned Affiliates and Associated Physician Practices is amultiple site organization consisting of ambulatory clinics and hospital sitesin [place], [place], [place] and [place]. This disclosure is being madepursuant to the Care Everywhere program and may not contain all information available regarding this patient. Last updated 18.[facility] [employer] Allergies Active Allergy Reactions Criticality Noted Date Comments Diphenhydramine Other Low 03/09/2022 Restless legs Hmg-Coa-R Inhibitors Myalgias Medium 07/24/2022 Statins Nickel Rash Medium 03/15/2022 Nifedipine Other Medium 03/15/2022 Other reaction(s): Chest tightness Sulfa Antibiotics Urticaria Medium 03/09/2022 Medications * Be aware that medications may not be up to date on this document. Alwaysverify current medications with the patient. Medication Sig Dispensed Refills Start Date End Date Status amiodarone (Cordarone) 200 MG tablet Take 1 (one) tablet by mouth at bedtime 07/11/2022 Active Eliquis 5 MG tablet Take 1 (one) tablet by mouth 2 times daily 07/03/2022 Active Lantus SoloStar pen 28 (twenty eight) Units at bedtime 05/26/2022 Active rOPINIRole (Requip) 0.25 MG tablet Take 1 (one) tablet by mouth 2 times daily 06/05/2022 Active metoprolol succinate XL 24hr (Toprol XL) 50 MG tablet Take 1 (one) tablet by mouth every morning 07/11/2022 Active levothyroxine (Synthroid) 200 MCG tablet Take 1 (one) tablet by mouth daily before breakfast 05/26/2022 Active calcium acetate (Phoslo) 667 MG capsule Take 1 (one) capsule by mouth 2 times daily 07/11/2022 Activ e albuterol HFA (Proventil; Ventolin; Proair) 108 (90 Base) MCG/ACT inhaler Inhale 1 (one) puff by mouth 12/11/2021 Active insulin aspart (NovoLOG PENFILL) cartridge Inject subcutaneously as directed SS with meals Active furosemide (Lasix) 80 MG tablet Take 1 (one) tablet by mouth once daily 10/12/2022 Active Spiriva HandiHaler 18 MCG inhalation capsule 10/12/2022 Active albuterol-ipratrop ium (Duo-Neb) 0.5-2.5 (3) MG/3ML nebulizer solution USE 3 ML IN NEBULIZER EVERY 4 HOURS NEEDED FOR SHORTNESS OF BREATH FOR WHEEZING 11/14/2022 Activ e acetaminophen (Tylenol) 500 MG tablet Take 1 (one) tablet by mouth every 6 hours as needed for Fever or Pain Maximum allowable Acetaminophen amount = 4 Grams (4000 mg) / 24 hours. 0 11/27/2022 Active ALPRAZolam (Xanax) 0.25 MG tablet 12/07/2022 Active gabapentin (Neurontin) 600 MG tablet Take 1 (one) tablet by mouth at bedtime 02/25/2023 Active gabapentin (Neurontin) 600 MG tablet Take 1 (one) tablet by mouth once daily In addition to the Gabapentin 300 mg in am Active montelukast (Singulair) 10 MG tablet 1 tablet Orally Once a day Active pantoprazole EC (Protonix) 40 MG tablet 1 tablet Orally Once a day Active traMADol (Ultram) 50 MG tablet 1 tablet as needed Orally Once a day Active gabapentin (Neurontin) 300 MG capsule Take 1 (one) capsule by mouth once daily In addition to the Gabapentin 600 mg in am Active atorvastatin (Lipitor) 20 MG tablet 1 (one) tablet by Enteral route at bedtime Active fluticasone propionate (Flonase) 50 MCG/ACT nasal spray [place] 2 (two) sprays into the nose once daily Active LORazepam (Ativan) 0.5 MG tablet 1 (one) tablet by Enteral route every 8 hours as needed Active nystatin (Mycostatin) 912163 UNIT/GM powder Apply 1 Application to affected area 2 times daily Active traZODone (Desyrel) 50 MG tablet Take 0.5 (one-half) tablet by mouth 2 times daily 03/03/2024 Active Active Problems Problem Noted Date Diagnosed Date Encounter regarding vascular access for dialysis for end-stage renal disease 01/22/2023 ESRD (end stage renal disease) 07/24/2022 Social History Tobacco Use Types Packs/Day Years Used Date Smoking Tobacco: Former Cigarettes Smokeless Tobacco: Never Tobacco Cessation:Counseling Given: No Comments:Quit 30 years ago Alcohol Use Standard [...] Sign Reading Time Taken Comments Blood Pressure 172/69 03/25/2024 3:30 PM BOWLING ALLEY MANAGER Pulse 55 03/25/2024 3:30 PM BOWLING ALLEY MANAGER Temperature 36.4 C (97.5 F) 03/25/2024 3:03 PM BOWLING ALLEY MANAGER Respiratory Rate 9 03/25/2024 3:30 PM BOWLING ALLEY MANAGER Oxygen Saturation 97% 03/25/2024 3:30 PM BOWLING ALLEY MANAGER Inhaled Oxygen Concentration 40% 04/12/2022 3 :16 PM BOWLING ALLEY MANAGER Weight 120.2 kg (265 lb) 10/31/2023 10:07 AM CDT Height 157.5 cm (5' 2 ) 10/31/2023 10:07 AM CDT Body Mass Index 48.47 10/31/2023 10:07 AM CDT Plan of Treatment Upcoming Encounters Date Type Department Care Team (Late st Contact Info) Description 08/19/2024 2:45 PM CDT Appointment [facility] [address] [facility] [facility], [place] [address] [place] [address] [place] [address] [place] [address] [facility] [address] [place], [place] [id number] Advance Directives * Full Code (Latest Code Status on File) Date Activated Date Inactivated Comments 05/14/2022 8:26 AM 05/28/2022 12:06 PM Care Teams Hamper Maker Machine Relationship Specialty Start Date End Date Rikki Amezquita MD [address] [place] [address] PCP - General 11/28/21
--- OUTSIDE RECORDS SUMMARY | 2024-07-16 17:43 | XMS_ITS | Clinical Summary ---
Author Organization [facility] Address [address], [place] [address] Phone Care Team Providers Care Environmental Issues Instructor Name Role Phone Rikki Amezquita MD Primary Care Provider [phone] Allergies Active Allergy Reactions Criticality Noted Date Comments Diphenhydramine 03/09/2022 Restless legs Nickel Rash Medium 03/15/2022 Nifedipine Medium 03/15/2022 Other reaction(s): Chest tightness Sulfa Antibiotics Hives 03/09/2022 Medications Medication Sig Dispensed Refills Start Date End Date Status Ventolin HFA 108 (90 Base) MCG/ACT inhaler 12/11/2021 Act marina clopidogrel (PLAVIX) 75 MG tablet 12/06/2021 Active Fluticasone-Umeclidin -Vilant (Trelegy Ellipta) 200-62.5-25 MCG/ACT aerosol powder INHALE 1 PUFF ONCE DAILY 02/28/2022 Active gabapentin (NEURONTIN) 300 MG capsule Take 300 mg by mouth in the morning and 300 mg before bedtime. 02/28/2022 Active BD Veo Insulin Syringe U/F 31G X 15/64 1 ML misc USE WITH INSULIN (LANTUS) INJECTION ONCE DAILY 01/13/2022 Active ipratropium-albuterol (DUO-NEB) 0.5-2.5 mg/3 mL nebulizer solution USE 3 ML IN NEBULIZER EVERY 8 HOURS NEEDED FOR SHORTNESS OF BREATH OR WHEEZING 12/29/2021 Active Synthroid 175 MCG tablet 03/06/2022 Active montelukast (SINGULAIR) 10 MG tablet 12/05/2021 Active pantoprazole (PROTONIX) 40 MG EC tablet 03/07/2022 Active Xarelto 20 MG tablet TAKE 1 TABLET BY MOUTH ONCE DAILY WITH EVENING MEAL 03/01/2022 Active traMADol (ULTRAM) 50 MG tablet 02/03/2022 Active verapamil ER (VERELAN) 360 MG 24 hr capsule 12/11/2021 Active cyclobenzaprine (FLEXERIL) 10 MG tablet Take 10 mg by mouth 3 (three) times a day if needed Active Cholecalciferol (Vitamin D) 50 MCG (1999 UT) capsule Take by mouth Acti ve ALPRAZolam (XANAX) 0.5 MG tablet Take 0.5 mg by mouth at night if needed Active furosemide (LASIX) 80 MG tablet Take 80 mg by mouth in the morning and 80 mg in the evening. 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 max itus 05/20/2013 Overview (03/15/2022): DMII WO CMP UNCNTRLD Hypothyroidism 12/31/2012 Overview (03/15/2022): HYPOTHYROIDISM NOS Immunizations Name Administration Dates Next Due Influenza TIV (IM) 03/07/2022 Influenza, Unspecified 02/04/2021 Pneumococcal Conjugate 01/06/2016 Social History Tobacco Use Types Packs/Day Years Used Date Smoking Tobacco: Former Cigarettes Smokeless Tobacco: Never Tobacco Cessation:Counseling Given: Not Answered Alcohol Use Standard Drinks/Week Comments Yes 0 (1 standard drink = 0.6 oz pur e alcohol) rare Sex and Gender Information Value Date Recorded Sex Assigned at Not on file Gender Identity Not on file Sexual Orientation Not on file Last Filed Vital Signs Vital Sign Reading Time Taken Comments Blood Pressure 130/70 03/09/2022 9:45 AM CDT Pulse 72 03/09/2022 9:45 AM CDT Temperature 36.2 C (97.1 F) 03/09/2022 9:45 AM CDT Respiratory Rate - - Oxygen Saturation - - Inhaled Oxygen Concentration - - Weight - - Height 162.6 cm (5' 4 ) 03/09/2022 9:45 AM CDT Body Mass Index - - Plan of Treatment Health Maintenance Due Date Last Done Comments Pneumococcal PPSV23/PCV13 65 + Years / Low and Medium Risk (1 of 4 - PCV) 2013 Influenza Vaccine (#1) 2024 03/07/2022, 2020 Care Teams Environmental Issues Instructor Relationship Specialty Start Date End Date Rikki Amezquita MD [address] [facility] [address] [place] [id number] PCP - General Internal Medicine 03/07/22
--- OUTSIDE RECORDS SUMMARY | 2024-07-16 17:43 | XMS_ITS | Patient Health Summary ---
Author Organization [facility] Address [address] [address] Care Team Providers Care Blindstitch Lapel Padder Name Role Phone Rikki Amezquita MD Primary Care Provider [phone] Note from [facility],non-owned Affiliates and Associated Physician Practices is amultiple site organization consisting of ambulatory clinics and hospital sitesin [place], [place], [place]. This disclosure is being madepursuant to the Care Everywhere program and may not contain all information available regarding this patient. Last updated 18.[facility] Allergies * Diphenhydramine(Other) -Low Criticality * Hmg-Coa-R Inhibitors(Myalgias) -Medium Criticality * Nickel(Rash) -Medium Criticality * Nifedipine(Other) -Medium Criticality * Sulfa Antibiotics(Urticaria) -Medium Criticality Medications * Be aware that medications may not be up to date on this document. Alwaysverify current medications with the patient. * amiodarone (Cordarone) 200 MG tablet(Started 07/11/2022) Take 1 (one) tablet by mouth at bedtime * Eliquis 5 MG tablet(Started 07/03/2022) Take 1 (one) tablet by mouth 2 times daily * Lantus SoloStar pen(Started 05/26/2022) 28 (twenty eight) Units at bedtime * rOPINIRole (Requip) 0.25 MG tablet(Started 06/05/2022) Take 1 (one) tablet by mouth 2 times daily * metoprolol succinate XL 24hr (Toprol XL) 50 MG tablet(Started 07/11/2022) Take 1 (one) tablet by mouth every morning * levothyroxine (Synthroid) 200 MCG tablet(Started 05/26/2022) Take 1 (one) tablet by mouth daily before breakfast * calcium acetate (Phoslo) 667 MG capsule(Started 07/11/2022) Take 1 (one) capsule by mouth 2 times daily * albuterol HFA (Proventil; Ventolin; Proair) 108 (90 Base) MCG/ACT inhaler (Started 12/11/2021) Inhale 1 (one) puff by mouth * insulin aspart (NovoLOG PENFILL) cartridge Inject subcutaneously as directed SS with meals * furosemide (Lasix) 80 MG tablet(Started 10/12/2022) Take 1 (one) tablet by mouth once daily * Spiriva HandiHaler 18 MCG inhalation capsule(Started 10/12/2022) * albuterol-ipratropium (Duo-Neb) 0.5-2.5 (3) MG/3ML nebulizer solution(Started 11/14/2022) USE 3 ML IN NEBULIZER EVERY 4 HOURS NEEDED FOR SHORTNESS OF BREATH FOR WHEEZING * acetaminophen (Tylenol) 500 MG tablet(Started 11/27/2022) Take 1 (one) tablet by mouth every 6 hours as needed for Fever or Pain Maximum allowable Acetaminophen amount = 4 Grams (4000 mg) / 24 hours. * ALPRAZolam (Xanax) 0.25 MG tablet(Started 12/07/2022) * gabapentin (Neurontin) 600 MG tablet(Started 02/25/2023) Take 1 (one) tablet by mouth at bedtime * gabapentin (Neurontin) 600 MG tablet Take 1 (one) tablet by mouth once daily In addition to the Gabapentin 300 mg in am * montelukast (Singulair) 10 MG tablet 1 tablet Orally Once a day * pantoprazole EC (Protonix) 40 MG tablet 1 tablet Orally Once a day * traMADol (Ultram) 50 MG tablet 1 tablet as needed Orally Once a day * gabapentin (Neurontin) 300 MG capsule Take 1 (one) capsule by mouth once daily In addition to the Gabapentin 600 mg in am * atorvastatin (Lipitor) 20 MG tablet 1 (one) tablet by Enteral route at bedtime * fluticasone propionate (Flonase) 50 MCG/ACT nasal spray [place]umb[place] 2 (two) sprays into the nose once daily * LORazepam (Ativan) 0.5 MG tablet 1 (one) tablet by Enteral route every 8 hours as needed * nystatin (Mycostatin) 727354 UNIT/GM powder Apply 1 Application to affected area 2 times daily * traZODone (Desyrel) 50 MG tablet(Started 03/03/2024) Take 0.5 (one-half) tablet by mouth 2 times daily Active Problems Problem Noted Date Diagnosed Date [...] Comments Blood Pressure 172/69 03/25/2024 3:30 PM MATERIALS INSPECTOR Pulse 55 03/25/2024 3:30 PM MATERIALS INSPECTOR Temperature 36.4 C (97.5 F) 03/25/2024 3:03 PM MATERIALS INSPECTOR Respiratory Rate 9 03/25/2024 3:30 PM MATERIALS INSPECTOR Oxygen Saturation 97% 03/25/2024 3:30 PM MATERIALS INSPECTOR Inhaled Oxygen Concentration 40% 04/12/2022 3 :16 PM MATERIALS INSPECTOR Weight 120.2 kg (265 lb) 10/31/2023 10:07 AM CDT Height 157.5 cm (5' 2 ) 10/31/2023 10:07 AM CDT Body Mass Index 48.47 10/31/2023 10:07 AM CDT Procedures * CARDIAC RHYTHM STRIP ORDER(Performed 03/27/2024) * CARDIAC RHYTHM STRIP ORDER(Performed 11/01/2023) * IR ANGIO AV SHUNT IMAGING(Performed 10/31/2023) Performed for Encounter regarding vascular access for dialysis for end-stage renal disease (HCC) * CARDIAC RHYTHM STRIP ORDER(Performed 08/06/2023) * IR ANGIO AV SHUNT IMAGING(Performed 08/01/2023) Performed for ESRD (end stage renal disease) (HCC) * CARDIAC RHYTHM STRIP ORDER(Performed 04/27/2023) * CARDIAC RHYTHM STRIP ORDER(Performed 01/25/2023) * CARDIAC RHYTHM STRIP ORDER(Performed 11/28/2022) * IR ANGIO AV SHUNT IMAGING(Performed 11/27/2022) Performed for Encounter regarding vascular access for dialysis for end-stage renal disease (HCC) * NV AV ANASTOM OPEN; UP ARM CEPHALIC VEIN TRNSPSTN(Performed 10/05/2022) * BASIC METABOLIC PANEL (CALCIUM TOTAL)(Performed 10/05/2022) Performed for Pre-op evaluation * VAS DIALYSIS EXIST ACCESS SCAN(Performed 09/18/2022) Performed for Encounter regarding vascular access for dialysis for end-stage renal disease (HCC) * CREATION ARTERIOVENOUS (AV) FISTULA DIRECT(Performed 08/04/2022) * BASIC METABOLIC PANEL (CALCIUM TOTAL)(Performed 08/04/2022) Performed for Pre-op evaluation * VAS BILAT MAPPING FOR HEMODIALYSIS(Performed 07/24/2022) Performed for Encounter regarding vascular access for dialysis for end-stage renal disease (HCC) * SARS-COV-2 (COVID-19)+INFLU A+B PCR RAPID(Performed 05/27/2022) * RENAL FUNCTION PANEL(Performed 05/27/2022) * XR CHEST 2VW(Performed 05/26/2022) * C DIFFICILE GDH AG + TOXIN A+B(Performed 05/23/2022) * XR ABDOMEN KUB(Performed 05/22/2022) * CBC W/O DIFFERENTIAL(Performed 05/22/2022) * BASIC METABOLIC PANEL (CALCIUM TOTAL)(Performed 05/22/2022) * XR ABDOMEN KUB(Performed 05/18/2022) * TSH(Performed 05/18/2022) * HEPATITIS B SURFACE ANTIGEN W RFLX CONFIRMATION(Performed 05/15/2022) * SLIDE SCAN HEMATOLOGY(Performed 05/15/2022) * CBC W AUTO DIFFERENTIAL(Performed 05/15/2022) * COMPREHENSIVE METABOLIC PANEL(Performed 05/15/2022) * SLIDE SCAN HEMATOLOGY(Performed 05/14/2022) * COMPREHENSIVE METABOLIC PANEL(Performed 05/14/2022) * CBC W AUTO DIFFERENTIAL(Performed 05/14/2022) * MRI BRAIN WWO CONTRAST(Performed 04/12/2022) Performed for Metabolic encephalopathy * CREATININE - POCT INTERFACED(Performed 04/12/2022) * XR CHEST 2VW(Performed 04/12/2022) Performed for Metabolic encephalopathy * XR SKULL 3VW OR LESS(Performed 04/12/2022) Performed for Metabolic encephalopathy * XR ABDOMEN KUB(Performed 04/12/2022) Performed for Metabolic encephalopathy Results * CARDIAC RHYTHM STRIP ORDER (03/27/2024 10:15 PM MATERIALS INSPECTOR) Only the most recent of6 resultswithin the time period is included. Narrative 03/27/2024 10:15 PM MATERIALS INSPECTOR Ordered by an unspecified provider. Scanned Document CARDIAC SERVICES ORD ERABLES * IR ANGIO AV SHUNT IMAGING (10/31/2023 11:34 AM CDT) Only the most recent of3 resultswithin the time period is included. Anatomical Region Laterality Modality Lower Extremity, Upper Extremity, Chest X-Ray Angiography Narrative 10/31/2023 11:38 AM CDT Lasha Rosario MD 10/31/2023 11:46 AM Interventional Radiology Post Procedure-Progress Notes Surgeon: Lasha Rosario MD Utility Technician: None Pre and Post Procedure diagnosis: Additional Diagnosis: Encounter regarding vascular access for dialysis for end-stage renal disease (HCC) [N18.6, Z99.2]; Additional Information regarding Pre & Post Procedure Diagnoses can be found in the Pre-Procedure H&P Immediately prior to start of procedure, final pre-procedure assessment was completed and medications were reviewed. Anesthesia: Local and IV Sedation Technical Procedure Performed: Image guided procedure - Dialysis fistulogram and venous angioplasty; As documented in Pre-Procedure H&P Side of Procedure: left Findings: As expected. See full imaging dictation Disposition: Home Status: Stable Surgical Drain or Retained Pack: None. Standard Skin dressing applied. Complications: None; See full imaging dictation Findings Inherent to Procedure: None; See full imaging dictation Estimated blood loss: Negligible. Specimen(s): Operative note: The patient has a left brachiocephalic fistula. The overlying skin was sterilely prepped and draped. 1% lidocaine local anesthesia was administered. Access was obtained low down on the fistula with a microintroducer set. A fistulogram was performed through the 5 Slovenian transitional sheath. This shows a high-grade recurrent stenosis in the cephalic vein mid arm, as well as multiple additional moderate to severe stenoses up through the cephalic arch. The left subclavian vein, innominate vein, and superior vena cava are all widely patent. A reflux view of the arterial anastomosis shows no recurrent stenosis at that site. A short 6 Slovenian sheath was placed. Angioplasty was performed using an 8 mm diameter by 6 cm Conquest balloon. Multiple inflations were made from mid arm up through the cephalic arch. There was some rebound narrowing noted on post angioplasty films. This was not flow-limiting and no further interventions were performed. The sheath was removed and hemostasis achieved with manual compression. Contrast was 20 cc of Isovue-300. Radiation dose was 6.7 mGy. The patient did experience pain with balloon inflations, and could be given more medication with future interventions. Moderate IV conscious sedation was administered by Dr. Rosario using 0.5 mg of Versed and 50 mcg of Fentanyl. The patient's airway and condition was evaluated immediately prior to sedation and/or analgesia. The patient was independently monitored by a registered nurse for 15 minutes using automated blood pressure, EKG and pulse oximetry. There were no complications. 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 Mohsen Reveles MD IR ORDERABLES * (ABNORMAL) BASIC METABOLIC PANEL (CALCIUM TOTAL) (10/05/2022 11:53 AM CDT) Only the most recent of3 resultswithin the time period is included. Glucose 190(H) 70 - 105 mg/dL 10/05/2022 12:24 PM CDT [facility] Sodium 137 136 - 145 mmol/L 10/05/2022 12:24 PM CDT [facility] Potassium 3.8 3.5 - 5.1 mmol/L 10/05/2022 12:24 PM CDT [facility] Chloride 96(L) 98 - 107 mmol/L 10/05/2022 12:24 PM CDT [facility] CO2 27 23 - 31 mmol/L 10/05/2022 12:24 PM CDT [facility] Calcium 9.3 8.4 - 10.4 mg/dL 10/05/2022 12:24 PM CDT [facility] Anion Gap 14 8 - 18 mmol/L 10/05/2022 12:24 PM CDT [facility] BUN 26(H) 9.8 - 20.1 mg/dL 10/05/2022 12:24 PM CDT [facility] Creatinine 3.76(H) 0.57 - 1.11 mg/dL 10/05/2022 12:24 PM CDT [facility] eGFR by CKD-EPI 12(L) >=90 mL/min/1.7 3 m2 10/05/2022 12:24 PM CDT [facility] Blood BLOOD SPECIMEN / Unknown Venipuncture / Unknown 10/05/2022 11:53 AM CDT 10/05/2022 12:03 PM CDT Zaina Mireles DO LAB - CHEMISTRY JLE CLAUDIA [facility] [address] [place] [address] * VAS DIALYSIS EXIST ACCESS SCAN (09/18/2022 11:20 AM CDT) Anatomical Region Laterality Modality Lower Extremity Ultrasound 09/18/2022 11:0 4 AM CDT Narrative Procedure Note Uriel Lindsey MD - 09/18/2022 [facility] [address], [address] [place] [address] Hemodialysis Graft Report Pat.Name: GREGORIA RAE.ID: [id number] .Date: 09/18/2022 Exam Time: 11:04:00 AM Study Type:Hemodialysis Graft Age: 8 1950,71Y Sex: FEMALE Sonogrphr: Khurram Martinez RVT Pat. Stat.:Outpatient CPT - 4: 73797 Reason for Study: AV Fistula Evaluation, End Stage Renal Disease Procedures: AV Fistula Evaluation Race: 1 Visit ID: [id number] ++++++++++++++++++++++++++++++++++++ SUMMARY: ++++++++++++++++++++++++++++++++++++ Patent left arm AV fistula which is deep. ++++++++++++++++++++++++++++++++++++ FINDINGS: ++++++++++++++++++++++++++++++++++++ Procedure: B-mode imaging, color flow Doppler and spectral analysis were used to evaluate the AV fistula in the upper arm of the left upper extremity. Study Quality: This study is of adequate technical quality. Lt Arm: There is patent AV fistula involving the Lt cephalic vein and the brachial artery. The average diameter measured 14.3 mm proximally, 8.9 mm mid, and 5.9 mm distally. The left upper AV fistula is deep, measuring 1 cm or more. Signed 09/18/2022 04:04 PM Uriel Lindsey MD Uriel Lindsey MD VASCULAR LAB ORDER CANDIE * VAS BILAT MAPPING FOR HEMODIALYSIS (07/24/2022 1:50 PM CDT) Anatomical Region Laterality Modality Lower Extremity, Upper Extremity Ultrasound 07/24/2022 12:3 8 PM CDT Narrative Procedure Note Uriel Lindsey MD - 07/24/2022 [facility] [address], [address] [place] [address] Vessel Mapping for Hemodialysis Report Pat.Name: GREGORIA RAE Pat.ID: [id number] .Date: 07/24/2022 Refer.MD: KEMAR GROVES Exam Time: 12:38:00 PM Study Type:Vessel Mapping for Hemodialysis Age: 8 1950,71Y Sex: FEMALE Sonogrphr: Khurram Martinez RVT Pat. Stat.:Outpatient CPT - 4: 14697 Reason for Study: End Stage Renal Disease Procedures: Vessel Mapping for Hemodialysis Race: 1 Visit ID: [id number] ++++++++++++++++++++++++++++++++++++ SUMMARY: ++++++++++++++++++++++++++++++++++++ Patent left arm cephalic and basilic veins for dialysis access. High arterial bifurcation. The left arm. ++++++++++++++++++++++++++++++++++++ FINDINGS: ++++++++++++++++++++++++++++++++++++ Procedure: Duplex vein mapping was carried out in the left lower extremity. Study Quality: This study is of adequate technical quality. Mapping Lt: The left cephalic vein is patent and compressible. The left basilic vein is patent and compressible. The left cephalic vein measured .33 cm at the antecubital fossa and .24 cm in the upper arm. Comments: HIGH ARTERIAL BIFURCATION OF THE LEFT UPPER ARM. Signed 07/24/2022 03:27 PM Uriel Lindsey MD Uriel Lindsey MD VASCULAR LAB ORDER CANDIE * SARS-COV-2 (COVID-19)+INFLU A+B PCR RAPID (05/27/2022 9:14 PM MATERIALS INSPECTOR) COVID-19 PCR Not detected Not detected 05/27/19 11:54 PM MATERIALS INSPECTOR [facility] Influenza A PCR Not detected Not detected 05/27/2022 11:54 PM MATERIALS INSPECTOR [facility] Influenza B PCR Not detected Not detected 05/27/2022 11:54 PM MATERIALS INSPECTOR [facility] Microbiology SPECIMEN FROM NASOPHARYNGEAL STRUCTURE / Unknown 05/27/2022 9:14 PM MATERIALS INSPECTOR 05/27/2022 11:10 PM MATERIALS INSPECTOR Narrative [facility] - 05/27/2022 11:54 PM MATERIALS INSPECTOR This nucleic acid amplification assay has been authorized by the Food and Drug administration (FDA) under an Emergency Use Authorization (EUA). This test is only authorized for the duration of time the declaration that circumstances exist justifying the authorization of emergency use of in vitro diagnostic tests for detection of SARS-CoV-2 virus and/or diagnosis of COVID-19 infection under section 564(b)(1) of the Act, 21 U.S.C 360bbb-3 (b)(1), unless the authorization is terminated or revoked sooner. Fact Sheets for this EUA assay are available upon request. Neeraj Elder MD LAB - MICROBIOL OGY ORDERABLES [facility] [address] [place] [address] * (ABNORMAL) RENAL FUNCTION PANEL (05/27/2022 4:20 PM MATERIALS INSPECTOR) Glucose 58(L) 70 - 105 mg/dL 05/27/2022 11:27 PM [facility] Sodium 133(L) 136 - 145 mmol/L 05/27/2022 11:27 PM [facility] Potassium 4.4 3.5 - 5.1 mmol/L 05/27/2022 11:27 PM [facility] Chloride 95(L) 98 - 107 mmol/L 05/27/2022 11:27 PM [facility] CO2 26 23 - 31 mmol/L 05/27/2022 11:27 PM [facility] Calcium 8.8 8.4 - 10.4 mg/dL 05/27/2022 11:27 PM [facility] Anion Gap 12 8 - 18 mmol/L 05/27/2022 11:27 PM [facility] BUN 38(H) 9.8 - 20.1 mg/dL 05/27/2022 11:27 PM [facility] Creatinine 7.33(H) 0.57 - 1.11 mg/dL 05/27/2022 11:27 PM [facility] Albumin 2.9(L) 3.2 - 4.6 gm/dL 05/27/2022 11:27 PM MATERIALS INSPECTOR [facility] Phosphorus 2.9 2.3 - 4.7 mg/dL 05/27/2022 11:27 PM MATERIALS INSPECTOR [facility] eGFR by CKD-EPI 5(L) >=90 mL/min/1.7 3 m2 05/27/2022 11:27 PM MATERIALS INSPECTOR [facility] Blood BLOOD SPECIMEN / Unknown 05/27/2022 4:20 PM MATERIALS INSPECTOR 05/27/2022 11:10 PM MATERIALS INSPECTOR Mellissa Garcia DO LAB - CHEMISTRY OR DERABLES [facility] [address] [place] [address] * XR CHEST 2VW (05/26/2022 5:10 PM MATERIALS INSPECTOR) Only the most recent of2 resultswithin the time period is included. Anatomical Region Laterality Modality Chest Radiographic Betty ging 05/26/2022 5:18 PM MATERIALS INSPECTOR Narrative 05/26/2022 5:19 PM MATERIALS INSPECTOR PROCEDURE(s): XR CHEST 2VW; DATE AND TIME OF EXAM(s): 05/26/2022 5:15 PM; LOCATION: [facility] INDICATION(s): Bilateral pleurisy. CHF. COPD. COMPARISON(s): Chest radiograph dated 05/26/2022. FINDINGS: A right chest wall placed dialysis catheter demonstrates tip terminating the right atrium. The cardiomediastinal silhouette is grossly unremarkable. The lung volumes are relatively low. Small bilateral pleural effusions are not excluded. No pneumothorax is seen. The osseous structures are grossly unremarkable. > Interpreting Provider: Judson Farias MD on 05/26/2022 5:19 PM Procedure Note Judson Farias MD - 05/26/2022 PROCEDURE(s): XR CHEST 2VW; DATE AND TIME OF EXAM(s): 05/26/2022 5:15 PM; LOCATION: [facility] INDICATION(s): Bilateral pleurisy. CHF. COPD. COMPARISON(s): Chest radiograph dated 05/26/2022. FINDINGS: A right chest wall placed dialysis catheter demonstrates tip terminating the right atrium. The cardiomediastinal silhouette isgrossly unremarkable. The lung volumes are relatively low. Small bilateralpleural effusions are not excluded. No pneumothorax is seen. The osseousstructures are grossly unremarkable. > Interpreting Provider: Judson Farias MD on 05/26/2022 5:19 PM Allison Patrick MD DIAGNOSTIC IMAGING O RDERABLES * C DIFFICILE GDH AG + TOXIN A+B (05/23/2022 11:51 AM MATERIALS INSPECTOR) C difficile GDH antigen & toxin A/B NEGATIVE NEGATIVE 05/24/2022 8:26 AM MATERIALS INSPECTOR [facility] Stool STOOL SPECIMEN / Unknown Collection / Unknown 05/23/2022 11:51 AM MATERIALS INSPECTOR 05/23/2022 7:49 PM MATERIALS INSPECTOR Narrative [facility] - 05/24/2022 8:26 AM MATERIALS INSPECTOR Negative for toxigenic C. difficile Allison Patrick MD LAB - MICROBIOLOGY O RDERABLES [facility] [address] [place], [place] [address], [facility] [phone] * XR ABDOMEN KUB (05/22/2022 8:55 AM MATERIALS INSPECTOR) Only the most recent of3 resultswithin the time period is included. Anatomical Region Laterality Modality Abdomen Radiographic Betty ging 05/22/2022 9:31 AM MATERIALS INSPECTOR Narrative 05/22/2022 9:43 AM MATERIALS INSPECTOR PROCEDURE: XR ABDOMEN KUB, DATE/TIME OF EXAM: 05/22/2022 8:57 AM, LOCATION [facility] INDICATION: abdominal pain ADDITIONAL CLINICAL INFORMATION: Ordering Provider Reason For Exam: Technologist Note: Additional: COMPARISON: May 18, 2022 FINDINGS: Frontal view of the abdomen shows a nonobstructed bowel gas pattern. A gastrostomy tube is still seen. There is no free intraperitoneal air. Edited by Maggi Guillen on 05/22/2022 9:34 AM > Interpreting Provider: Tesfaye Guillen MD on 05/22/2022 9:43 AM Procedure Note Tesfaye Guillen MD - 05/22/2022 PROCEDURE: XR ABDOMEN KUB, DATE/TIME OF EXAM: 05/22/2022 8:57 AM,LOCATION [facility] INDICATION: abdominal pain ADDITIONAL CLINICAL INFORMATION: Ordering Provider Reason For Exam: Technologist Note: Additional: COMPARISON: May 18, 2022 FINDINGS: Frontal view of the abdomen shows a nonobstructed bowel gas pattern. A gastrostomy tube is still seen. There is no free intraperitoneal air. Edited by Maggi Guillen on 05/22/2022 9:34 AM > Interpreting Provider: Tesfaye Guillen MD on 05/22/2022 9:43 AM Ely Justice MD DIAGNOSTIC IMAGING O RDERABLES * (ABNORMAL) CBC W/O DIFFERENTIAL (05/22/2022 1:30 AM MATERIALS INSPECTOR) WBC 15.6(H) 4.4 - 10.7 x10E9/L 05/22/2022 7:44 AM MATERIALS INSPECTOR [facility] RBC 3.87 3.80 - 5.20 x10E12/L 05/22/2022 7:44 AM MATERIALS INSPECTOR [facility] Hemoglobin 9.5(L) 12.0 - 15.6 gm/dL 05/22/2022 7:44 AM MATERIALS INSPECTOR [facility] Hematocrit 32.1(L) 35.9 - 45.5 % 05/22/2022 7:44 AM MATERIALS INSPECTOR [facility] MCV 82.9 80.7 - 98.3 fl 05/22/2022 7:44 AM MATERIALS INSPECTOR [facility] MCH 24.5(L) 26.7 - 34.0 pg 05/22/2022 7:44 AM MATERIALS INSPECTOR [facility] MCHC 29.6(L) 30.8 - 35.9 gm/dL 05/22/2022 7:44 AM MATERIALS INSPECTOR [facility] Platelet Count 262 153 - 416 x10E9/L 05/22/2022 7:44 AM MATERIALS INSPECTOR [facility] RDW-CV 23.3(H) 12.1 - 14.9 % 05/22/2022 7:44 AM MATERIALS INSPECTOR [facility] MPV 9.6 9.4 - 12.9 fl 05/22/2022 7:44 AM MATERIALS INSPECTOR [facility] Blood BLOOD SPECIMEN / Unknown 05/22/2022 1:30 AM MATERIALS INSPECTOR 05/22/2022 6:32 AM MATERIALS INSPECTOR Valery Schumacher PCTS-TABLE GAMES FLOOR SUPERVISOR LAB - HEMATOLOGY ORDERABLES Performing Organization Address [facility] Co de Phone Number [facility] [address] [place] [address] [phone] * (ABNORMAL) TSH (05/18/2022 4:29 AM MATERIALS INSPECTOR) Pathologist [facility] TSH 23.3033(H) 0.35 - 4.94 uIU/mL 05/18/2022 7:19 AM MATERIALS INSPECTOR [facility] Blood BLOOD SPECIMEN / Unknown 05/18/2022 4:29 AM MATERIALS INSPECTOR 05/18/2022 6:27 AM MATERIALS INSPECTOR Jaren Herman MD LAB - CHEMISTRY LUCIANA TAYLOR Performing Organization Address [facility] de Phone Number [facility] [address] [place] [phone] * HEPATITIS B SURFACE ANTIGEN W RFLX CONFIRMATION (05/15/2022 5:30 PM MATERIALS INSPECTOR) Pathologist [facility] HBsAg Non Reactive Non Reactive 05/15/2022 11:44 PM MATERIALS INSPECTOR [facility] Blood BLOOD SPECIMEN / Unknown 05/15/2022 5:30 PM MATERIALS INSPECTOR 05/15/2022 10:56 PM MATERIALS INSPECTOR Lola Garcia MD LAB - CHEMISTRY LUCIANA TAYLOR Performing Organization Address [facility] de Phone Number [facility] [address] [place] [phone] * (ABNORMAL) SLIDE SCAN HEMATOLOGY (05/15/2022 4:47 AM MATERIALS INSPECTOR) Only the most recent of2 resultswithin the time period is included. Anisocytosis Occasional (A) None 05/15/2022 8:12 AM [facility] Blood BLOOD SPECIMEN / Unknown 05/15/2022 4:47 AM MATERIALS INSPECTOR 05/15/2022 6:35 AM MATERIALS INSPECTOR Valery Schumacher PCTS-TABLE GAMES FLOOR SUPERVISOR LAB - HEMATOLOGY ORDERABLES [facility] [address] [place] [address] * (ABNORMAL) CBC W AUTO DIFFERENTIAL (05/15/2022 4:47 AM MATERIALS INSPECTOR) Only the most recent of2 resultswithin the time period is included. WBC 10.1 4.4 - 10.7 x10E9/L 05/15/2022 6:54 AM MATERIALS INSPECTOR [facility] WBC Corrected 05/15/2022 6:54 AM [facility] RBC 4.08 3.80 - 5.20 x10E12/L 05/15/2022 6:54 AM [facility] Hemoglobin 9.8(L) 12.0 - 15.6 gm/dL 05/15/2022 6:54 AM [facility] Hematocrit 34.4(L) 35.9 - 45.5 % 05/15/2022 6:54 AM [facility] MCV 84.3 80.7 - 98.3 fl 05/15/2022 6:54 AM [facility] MCH 24.0(L) 26.7 - 34.0 pg 05/15/2022 6:54 AM [facility] MCHC 28.5(L) 30.8 - 35.9 gm/dL 05/15/2022 6:54 AM [facility] Platelet Count 277 153 - 416 x10E9/L 05/15/2022 6:54 AM [facility] RDW-CV 23.6(H) 12.1 - 14.9 % 05/15/2022 6:54 AM [facility] MPV 9.8 9.4 - 12.9 fl 05/15/2022 6:54 AM [facility] Neutrophils % 65.0 44.0 - 73.0 % 05/15/2022 6:54 AM [facility] Lymphocytes % 18.5(L) 20.0 - 43.0 % 05/15/2022 6:54 AM [facility] Monocytes % 10.8 5.0 - 13.0 % 05/15/2022 6:54 AM [facility] Eosinophils % 4.2 0.0 - 6.0 % 05/15/2022 6:54 AM [facility] Basophils % 0.9 0.0 - 2.0 % 05/15/2022 6:54 AM [facility] Immature Granulocytes 0.6 0 - 1 % 05/15/2022 6:54 AM [facility] Neutrophil Absolute 6.56 2.01 - 7.14 x10E9/L 05/15/2022 6:54 AM [facility] Lymphocytes Absolute 1.86 1.07 - 3.94 x10E9/L 05/15/2022 6:54 AM [facility] Monocytes Absolute 1.09(H) 0.26 - 1.07 x10E9/L 05/15/2022 6:54 AM [facility] Eosinophils Absolute 0.42 0 - 0.47 x10E9/L 05/15/2022 6:54 AM [facility] Basophils Absolute 0.09(H) 0 - 0.08 x10E9/L 05/15/2022 6:54 AM [facility] Immature Granulocytes Absolute 0.06 0.00 - 0.06 x10E9/L 05/15/2022 6:54 AM [facility] nRBC Auto 0 /100 WBC 05/15/2022 6:54 AM [facility] Blood BLOOD SPECIMEN / Unknown 05/15/2022 4:47 AM MATERIALS INSPECTOR 05/15/2022 6:35 AM [facility] Valery Schumacher APRN-TABLE GAMES FLOOR SUPERVISOR LAB - HEMATOLOGY ORDERABLES [facility] [address] [place] [address] * (ABNORMAL) COMPREHENSIVE METABOLIC PANEL (05/15/2022 4:47 AM MATERIALS INSPECTOR) Only the most recent of2 resultswithin the time period is included. [facility] Signature Glucose 113(H) 70 - 105 mg/dL 05/15/2022 7:23 AM [facility] Sodium 133(L) 136 - 145 mmol/L 05/15/2022 7:23 AM [facility] Potassium 5.3(H) 3.5 - 5.1 mmol/L 05/15/2022 7:23 AM [facility] Chloride 99 98 - 107 mmol/L 05/15/2022 7:23 AM [facility] CO2 21(L) 23 - 31 mmol/L 05/15/2022 7:23 AM [facility] Calcium 9.5 8.4 - 10.4 mg/dL 05/15/2022 7:23 AM [facility] Anion Gap 13 8 - 18 mmol/L 05/15/2022 7:23 AM [facility] BUN 60(H) 9.8 - 20.1 mg/dL 05/15/2022 7:23 AM [facility] Creatinine 7.97(H) 0.57 - 1.11 mg/dL 05/15/2022 7:23 AM [facility] Alkaline Phosphatase 74 40 - 150 U/L 05/15/2022 7:23 AM [facility] ALT 9 0 - 61 U/L 05/15/2022 7:23 AM [facility] AST 10 5 - 34 U/L 05/15/2022 7:23 AM [facility] Protein Total 7.2 6.4 - 8.3 gm/dL 05/15/2022 7:23 AM [facility] Albumin 2.9(L) 3.2 - 4.6 gm/dL 05/15/2022 7:23 AM [facility] Bilirubin Total 0.4 0.2 - 1.2 mg/dL 05/15/2022 7:23 AM [facility] eGFR by CKD-EPI 5(L) >=90 mL/min/1.7 3 m2 05/15/2022 7:23 AM [facility] Blood BLOOD SPECIMEN / Unknown 05/15/2022 4:47 AM MATERIALS INSPECTOR 05/15/2022 6:35 AM MATERIALS INSPECTOR Valery Schumacher PCTS-TABLE GAMES FLOOR SUPERVISOR LAB - CHEMISTRY ORDERABLES [facility] [address] [place] [id number] * MRI BRAIN WWO CONTRAST (04/12/2022 4:08 PM MATERIALS INSPECTOR) Anatomical Region Laterality Modality Head Magnetic Resonan ce 04/13/2022 2:07 PM MATERIALS INSPECTOR Impressions 04/13/2022 2:14 PM MATERIALS INSPECTOR IMPRESSION: 1.No evidence of restricted diffusion to suggest an acute infarction. 2.No evidence of abnormal intracranial enhancement. 3.Extensive perivascular spaces in the deep nuclei of the brain. 4.CT angiogram of the head and neck is recommended for further evaluation, if clinically warranted. > Interpreting Provider: Mary Henderson MD on 04/13/2022 2:14 PM Narrative 04/13/2022 2:14 PM MATERIALS INSPECTOR PROCEDURE: MRI BRAIN WWO CONTRAST, DATE/TIME OF EXAM: 04/12/2022 4:17 PM, LOCATION [facility] INDICATION: G93.41: Metabolic encephalopathy ADDITIONAL CLINICAL INFORMATION: Ordering Provider Reason For Exam: Metabolic encephalopathy. Technologist Note: None. Additional: None. EXAMINATION: Magnetic resonance imaging (MRI) of the brain without and with contrast CONTRAST: GADOTERATE MEGLUMINE 0.5 MMOL/ML IV SSM SO:20 mL TECHNIQUE: MRI of the brain was performed prior to and following the uneventful administration of 20 mL intravenous DOTAREM contrast according to standard protocol. COMPARISON: No prior study is available for comparison at the time of this dictation. FINDINGS: No evidence of acute or chronic hemorrhage is identified. No evidence of acute cerebral infarction is seen. There is mild cerebral volume loss with associated ex vacuo ventricular dilatation. No mass effect or midline shift is seen. Periventricular, subcortical, and pontine white matter FLAIR hyperintensities likely represent sequelae of chronic small vessel ischemic disease. No enhancing lesions are identified. The pituitary height measures approximately 4.1 mm, (series 9, image 12). The corpus callosum is mildly thinned out. The posterior fossa, brainstem, and craniocervical junction appear normal. Extensive perivascular spaces in the basal ganglia, including the lentiform and caudate nuclei bilaterally. Abnormal T2 signal is also identified in the bilateral thalami. Other than bilateral cataract extractions, the visualized portions of the orbits, appear grossly unremarkable. Minimal paranasal sinus disease. Fluid signal in the mastoid air cells bilaterally. Normal flow voids are demonstrated in the carotid arteries and basilar artery. A typical flow void in the vertebral arteries, possibly artifactual. Decreased T1 bone marrow signal within the calvarium and upper cervical spine is nonspecific and may be the sequela of anemia. Clinical correlation is recommended. Procedure Note Mary Henderson MD - 04/13/2022 PROCEDURE: MRI BRAIN WWO CONTRAST, DATE/TIME OF EXAM: 04/12/2022 4:17PM, LOCATION [facility] INDICATION: G93.41: Metabolic encephalopathy ADDITIONAL CLINICAL INFORMATION: Ordering Provider Reason For Exam: Metabolic encephalopathy. Technologist Note: None. Additional: None. EXAMINATION: Magnetic resonance imaging (MRI) of the brain without andwith contrast CONTRAST: GADOTERATE MEGLUMINE 0.5 MMOL/ML IV SSM SO:20 mL TECHNIQUE: MRI of the brain was performed prior to and following the uneventful administration of 20 mL intravenous DOTAREM contrastaccording to standard protocol. COMPARISON: No prior study is available for comparison at the time ofthis dictation. FINDINGS: No evidence of acute or chronic hemorrhage is identified. No evidence of acute cerebral infarction is seen. There is mild cerebral volume losswith associated ex vacuo ventricular dilatation. No mass effect or midlineshift is seen. Periventricular, subcortical, and pontine white matter FLAIR hyperintensities likely represent sequelae of chronic small vesselischemic disease. No enhancing lesions are identified. The pituitary heightmeasures approximately 4.1 mm, (series 9, image 12). The corpus callosum ismildly thinned out. The posterior fossa, brainstem, and craniocervical junction appear normal. Extensive perivascular spaces in the basal ganglia, including the lentiform and caudate nuclei bilaterally. Abnormal [id number] is also identified in the bilateral thalami. Other than bilateral cataract extractions, the visualized portions ofthe orbits, appear grossly unremarkable. Minimal paranasal sinus disease.Fluid signal in the mastoid air cells bilaterally. Normal flow voids are demonstrated in the carotid arteries and basilar artery. A typical flow void in the vertebral arteries, possibly artifactual. Decreased T1 bone marrow signal within the calvarium and upper cervical spine isnonspecific and may be the sequela of anemia. Clinical correlation is recommended. IMPRESSION: 1.No evidence of restricted diffusion to suggest an acute infarction. 2.No evidence of abnormal intracranial enhancement. 3.Extensive perivascular spaces in the deep nuclei of the brain. 4.CT angiogram of the head and neck is recommended for furtherevaluation, if clinically warranted. > Interpreting Provider: Mary Henderson MD on 04/13/2022 2:14 PM Ordering Provider Unlisted MR ORDERAB LES * (ABNORMAL) CREATININE - POCT INTERFACED (04/12/2022 3:11 PM MATERIALS INSPECTOR) Creatinine POCT 3.49(H) 0.30 - 1.30 mg/dL 04/12/2022 6:20 PM MATERIALS INSPECTOR [facility] eGFR 13(L) >90 mL/min/1.7 3 m2 04/12/2022 6:20 PM MATERIALS INSPECTOR [facility] Blood BLOOD SPECIMEN / Unknown 04/12/2022 3:11 PM MATERIALS INSPECTOR 04/12/2022 6:20 PM MATERIALS INSPECTOR Provider Unknown LAB - POINT OF CARE ORDERABLES [address] [address], [facility] [phone] * XR SKULL 3VW OR LESS (04/12/2022 2:54 PM MATERIALS INSPECTOR) Anatomical Region Laterality Modality Head Radiographic Betty ging 04/12/2022 3:02 PM MATERIALS INSPECTOR Narrative 04/13/2022 10:44 AM MATERIALS INSPECTOR PROCEDURE: XR SKULL 3VW OR LESS DATE/TIME OF EXAM: 04/12/2022 2:54 PM CLINICAL INFORMATION: None relevant/not provided if blank. Indication: G93.41: Metabolic encephalopathy Additional History: Performed for MRI clearance. COMPARISON: None. FINDINGS/IMPRESSION: Other than multiple mandibular dental amalgam, there is no radiopaque foreign material demonstrated. > Dictated by Ulysses Stanley MD (radiology director). ILidia MD have personally reviewed and interpreted this examination/study. > Interpreting Provider: Lidia Doyle MD on 04/13/2022 10:44 AM Procedure Note Lidia Doyle MD - 04/13/2022 PROCEDURE: XR SKULL 3VW OR LESS DATE/TIME OF EXAM: 04/12/2022 2:54 PM CLINICAL INFORMATION: None relevant/not provided if blank. Indication: G93.41: Metabolic encephalopathy Additional History: Performed for MRI clearance. COMPARISON: None. FINDINGS/IMPRESSION: Other than multiple mandibular dental amalgam, there is no radiopaque foreign material demonstrated. > Dictated by Ulysses Stanley MD (radiology director). I, Lidia Doyle MD have personally reviewed and interpreted this examination/study. > Interpreting Provider: Lidia Doyle MD on 04/13/2022 10:44 AM Ordering Provider Unlisted DIAGNOSTIC IMAGING ORDERABLES Care Teams Blindstitch Lapel Padder Relationship Specialty Start Date End Date Rikki Amezquita MD [address] [place] [address] PCP - General 11/28/21
--- OUTSIDE RECORDS SUMMARY | 2024-07-16 17:44 | XMS_ITS | Clinical Summary ---
Author Organization [facility] Address [address] [place] [id number] Care Team Providers Care Beater Out Name Role Phone Unavailable Primary Care Provider Unavailabl e Social History Tobacco Use Types Packs/Day Years Used Date Smoking Tobacco: Never Assessed Comments Unknown Sex and Gender Information Value Date Recorded Sex Assigned at Not on file Legal Sex Female 11:29 PM CDT Gender Identity Not on file Sexual Orientation Not on file Plan of Treatment Health Maintenance Due Date Last Done Comments Colorectal Cancer Screening Colonoscopy (10 Years) 1948 Hepatitis C 1966 DTaP, Tdap and Td Vaccines ( 1 - Tdap) 12/27/1967 Zoster Vaccines (1 of 2) 1998 Dexa Scan (General) 2013 Pneumococcal Vaccine: 65+ Ye ars (1 of 1 - PCV) 2013 RSV Immunization or 60+ Years (1 - 1-dose 75+ series) 12/27/2023 COVID-19 Vaccine ( - 2023-2 5 season) 2024 Influenza Adult (#1) 2024 Meningococcal B Vaccine Aged Out No l onger eligible based on patient's age to complete this topic Meningococcal Vaccine Aged Out No clarisa penelope eligible based on patient's age to complete this topic RSV Immunizations Under 20 Months Aged Out No longer eligible based on patient's age to complete this topic
--- OUTSIDE RECORDS SUMMARY | 2024-07-16 17:44 | XMS_ITS | Patient Health Record ---
Author Organization [facility] Address [address] [place] [address] [place] [id number] Care Team Providers Care Crop Nutrition Scientist Name Role Phone Brayan Amezquita Primary Care Provider Unavail able Sammy Shepard Unavailable [phone] Allergies No Known Allergies Reason For Referral No Information Medications Medication SIG (Take, Route, Frequency, Duration) Notes Start Date End Date Status Synthroid 175 MCG 1 tablet on an empty stomach in the morning Orally Once a day Active Pantoprazole Sodium 40 MG 1 tablet Orall y Once a day Active Montelukast Sodium 10 MG 1 tablet Orally Once a day Active Irbesartan-hydroCHLOROthi azide 300-12.5 MG 1 tablet Orally Once a day Active Aldactone 25 MG 1 tablet Orally for 30 day(s) Unknown Gabapentin 600 MG 1 tablet Orally Once a day 2 1/2 qd Active Potassium Chloride ER 10 MEQ 1 tablet with food Orally Once a day Unknown Plavix 75 MG 1 tablet Orally Once a day Active NovoLOG PenFill 100 UNIT/ML as directed Subcutaneous per meal 10-30 units Not-Taking ALPRAZolam 0.5 MG 1 tablet Orally prn Active Lantus SoloStar 100 UNIT/ML as directed Subcutaneous every day 50 units qd Not-Taking Advair HFA 230-21 MCG/ACT 2 puffs Inhala tion Twice a day Active Doxycycline Monohydrate 100 MG 1 tablet Orally twice a day Not-Taking Furosemide 40 MG 2 tablet Orally three times a day Active Verapamil HCl 360 MG 1 capsule Orally Once a day Active hydroCHLOROthiazide 12.5 MG 2 tablet in the morning Orally Once a day Active Ventolin HFA 90 MCG/ACT 2 puffs as neede d Inhalation every 6 hrs Active traMADol HCl 50 MG 1 tablet as needed Orally Once a day Active Social History Tobacco Use: Social History Observation Description Date Details (start date - stop date) Former Smoker NA - NA Alcohol: Question Answer Notes Did you have a drink containing alcohol in the p ast year? No Points 0 Interpretation Negative Smoking Question Answer Notes Are you a: former smoker How long has it been since you last smoked? 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 (369996918326829) 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) Active confirmed Problem 86633501 Essential (primary) hypertension (I10) Active confirmed Problem 649565851 Chronic kidney disease, stage 3a (N18.31) Active confirmed Plan Of Treatment Pending Test Test Name Order Date Iron and TIBC 10/11/2018 Creatinine Clearance 10/11/2018 Protein Total, Qn, 24-Hr Urine 9 Renal Panel (10) 06/10/2019 Renal Panel (10) 10/26/2020 Renal Panel (10) 11/23/2020 Renal Panel (10) 02/15/2021 Renal Panel (10) 05/31/2021 Renal Panel (10) 07/26/2021 renal artery doppler-bilateral 9 Magnesium 10/11/2018 Magnesium 10/26/2020 Magnesium 06/10/2019 Magnesium 11/06/2018 Magnesium 07/26/2021 Magnesium 05/31/2021 Magnesium 02/15/2021 Magnesium 11/23/2020 Magnesium 02/28/2019 Ferritin 10/11/2018 CBC 10/11/2018 Renal Panel 10/11/2018 Renal Panel 11/06/2018 Renal Panel 02/28/2019 C3 10/11/2018 C4 10/11/2018 HEMOGLOBIN A1C 10/11/2018 HEMOGLOBIN A1C 06/10/2019 protein creatinine ratio random urine Insurance Providers Payer Name Payer Address Payer Phone Subscriber Number Group Number Insured Name Patient Relationship to Insured Coverage Start Date Coverage End Date Medicare [place] [address] [address] [place] [address] [id number] Gregoria Rae Self - patient is the insured [facility] [address] [place] [address] [id number] Gregoria Rae Self - patient is the insured Medical (General) History Medical History History ICD Code restless leg syndrome DM HTN CKD Surgical History Surgery Date(Month/Year) thryoidectomy cholecystectomy
--- OUTSIDE RECORDS SUMMARY | 2024-07-16 17:44 | XMS_ITS | Referral Summary ---
Author Organization [facility] Address [address] [place] [address] Care Team Providers Care Multifocal Button Generator Name Role Phone Mona Currie MD PhD Unavailable Sammy Shepard MD Unavailable [phone] Rikki Amezquita MD Primary Care Provider Encounters Date Type Department Care Team Description 07/01/2024 9:30 AM CENTRAL OFFICE FRAME WIRER Office Visit [facility] Cardiology [address] [facility] [address] [place] [phone] Uriel Gillette MD Paroxysmal atrial fibrillation (HCC) (Primary Dx); Need for lipid screening 06/03/2024 Telephone [facility] Cardiology [address] [facility] [address] [place] [phone] Uriel Gillette MD 05/05/2024 Telephone [facility] Post Acute Care [address] [facility] [address] [place] [phone] Jenny Montano MA SNF Outreach 04/22/2024 NH/SNF Visit [facility] Post Acute Care [facility] [place] [id number] [place] [address] Maggi Murillo NP 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 (HCC) (Primary Dx); Anemia of renal disease; Centrilobular emphysema (HCC); Chronic heart failure with preserved ejection fraction (HCC); Hypertension associated with diabetes (HCC); ESRD on hemodialysis (HCC); S/P gastrostomy tube (G tube) placement, follow-up exam; Paroxysmal atrial fibrillation (HCC) from Last 3 Months Allergies Active Allergy Reactions Criticality Noted Date Comments Diphenhydramine Other (See comments) Low Restless leg Nickel Rash Medium Nifedipine Chest tightness Medium Jbdfbyf-Gbj-Qgh Reductase Inhibitors Muscle pain Medium Sulfa Hives Medium Sulfa (Sulfonamide Antibiotics) Hives Medium Sulfanilamide Hives Medium Medications apixaban (ELIQUIS) 2.5 mg tablet Administer 1 tablet (2.5 mg total) per feeding tube 2 (two) times a day Active albuterol 2.5 mg /3 mL (0.083 %) nebulizer solution Take 3 mL (2.5 mg total) by nebulization every 4 (four) hours as needed for wheezing Active atorvastatin (LIPITOR) 20 mg tablet Administer per tube 1 tablet (20 mg total) nightly Active banana dbfxpc-YDC-dr lupillo 5 gram-45 kcal/60 mL liquid in packet Administer 1 packet per feeding tube 3 (three) times a day Active menthol/zinc oxide (REMEDY CALAZIME SKIN PASTE TOP) Apply 1 Application topically 2 (two) times a day To coccyx Active fluticasone-u meclidin-fabien nter (TRELEGY ELLIPTA) 200-62.5-25 mcg inhaler Inhale 1 puff daily Active fluticasone propionate (FLONASE) 50 mcg/actuation nasal spray Administer 2 sprays into each nostril daily Active metoprolol tartrate (LOPRESSOR) 50 mg immediate release tablet Administer per tube 1 tablet (50 mg total) daily Active montelukast (SINGULAIR) 10 mg tablet Administer per tube 1 tablet (10 mg total) nightly Active insulin lispro (HumaLOG, ADMELOG) 100 unit/mL vial for injection Inject 0-6 Units under the skin 3 (three) times a day before meals 0-199 = 0 units; 200-249 = 2 units; 250-299=3 units; 300-349= 4 units; 350-399 = 6 units Active nystatin powder Apply 1 Application topically 2 (two) times a day Under breasts Active tiotropium (SPIRIVA) 18 mcg per inhalation capsule Place 1 puff (1 capsule total) into inhaler and inhale daily Active gabapentin (NEURONTIN) solution 250 mg/5 mL Take 2 mL (100 mg total) by mouth 3 (three) times a day 180 mL 11 03/03/20 24 2024 Active Additional Information Patient not taking.Reported on 07/01/2024 insulin glargine 100 unit/mL vial for injection Inject 18 Units under the skin nightly 10 mL 1 03/03/20 24 2024 Active rOPINIRole (REQUIP) 0.5 mg tablet Administer per tube 1 tablet (0.5 mg total) 2 (two) times a day 60 tablet 11 03/03/20 24 2024 Active epoetin bryce-epbx (RETACRIT) (3,000 unit/mL) solutionIndic ations:ESRD on Dialysis Infuse 2 mL (6,000 Units total) into a venous catheter 3 (three) times a week 24 mL 03/03/20 Active traZODone (DESYREL) 50 mg tablet Take 0.5 tablets (25 mg total) by mouth 2 (two) times a day 30 tablet 03/03/20 Active Additional Information Patient taking differently: 50 mgoralNightly, Reported on 07/01/2024 levothyroxine (SYNTHROID) 200 mcg tablet Administer per tube 1 tablet (200 mcg total) early intervention specialist before breakfast 03/31/20 Active Additional Information Patient taking differently: 175 mcggastrostomy tube Daily (early AM), Reported on 07/01/2024 LORazepam (ATIVAN) 0.5 mg tablet Take 1 tablet (0.5 mg total) by mouth every 12 (twelve) hours as needed for anxiety 28 tablet 4 04/14/20 Active amiodarone (PACERONE) 200 mg tablet ADMINISTER 1 TABLET PER TUBE ONCE DAILY 30 tablet 11 07/08/19 Active amiodarone (PACERONE) 200 mg tablet Administer per tube 1 tablet (200 mg total) daily 30 tablet 06/03/192024 Discontinued Active Problems Problem Noted Date Diagnosed Date Centrilobular emphysema 04/13/2024 Assessment & Plan (04/28/2024 2:26 PM CENTRAL OFFICE FRAME WIRER): Stable on room air, continue trelegy, spiriva, prn duonebs Assessment & Plan (04/13/2024 12:50 PM CENTRAL OFFICE FRAME WIRER): Stable on room air, continue trelegy, spiriva, prn duonebs Metabolic encephalopathy 03/05/2024 Assessment & Plan (03/05/2024 8:36 AM CDT): Thought to be multifactorial in nature. Possibly due to medications and polypharmacy and possible hypothyroid we will discontinue gabapentin altogether as it will be difficult to administer through the G-tube and liquid gabapentin is not immediately available. She was already on low dose. Quetiapine has been changed to trazodone and we will continue to monitor overall status. Thyroid medication will be given on empty stomach if possible and we will follow TSH. Overall patient may have some underlying dementia related to recent strokes and overall encephalopathy maybe difficult to manage Anemia of renal disease 02/26/2024 Assessment & Plan (04/28/2024 2:29 PM CENTRAL OFFICE FRAME WIRER): Hb 9-10 at baseline, stable, continue epogen with HD CVA, old, aphasia 02/26/2024 Assessment & Plan (03/05/2024 8:34 AM CDT): Also with resulting agitation and weakness. Continue physical and occupational therapy. Now on trazodone for agitation. Altered mental status, unspe cified altered mental status type 02/25/2024 Assessment & Plan (03/06/2024 9:48 PM CDT): Recent admission for encephalopathy, unclear if true change in cognition per nursing staff, zyprexa was DC and switched to trazodone, repeat Head CT reassuring given recent CVA, may need to decrease trazodone to HS only Wound of right foot 01/25/2024 Assessment & Plan (01/25/2024 11:11 AM CDT): Unclear etiology, does not have classic diabetic wound appearance, discussed with nursing staff to apply mupirocin ointment TID x 7 days. Keep areas clean and dry, apply skin prep to heels to avoid additional areas of breakdown, no drainage to culture today, notify provider for change in condition, continue to maintain glycemic control S/P gastrostomy tube (G tube) placement, follow- up exam 01/25/2024 Assessment & Plan (04/28/2024 2:25 PM CENTRAL OFFICE FRAME WIRER): Tube removed, keep healing stoma clean, dry, covered. F/u with PCP Assessment & Plan (04/13/2024 12:46 PM CENTRAL OFFICE FRAME WIRER): Recently pulled out by patient, surgical site is healing, continue to clean daily and cover with dry gauze Assessment & Plan (04/09/2024 1:53 PM CENTRAL OFFICE FRAME WIRER): Ok to keep tube out, cover area daily with dry gauze until healed, notify provider for change in condition or sx of dysphagia Assessment & Plan (04/06/2024 8:05 PM CENTRAL OFFICE FRAME WIRER): Now tolerating PO, likely could permanently DC soon, continue with h2o flushes for now Assessment & Plan (03/15/2024 10:55 AM CENTRAL OFFICE FRAME WIRER): Continue to flush q.i.d., able to tolerate food by mouth, DIGITAL PRODUCT SPECIALIST following Assessment & Plan (03/06/2024 9:49 PM CDT): Now tolerating PO, continue to flush g tube q4 hrs, may use for meds Assessment & Plan (03/05/2024 8:34 AM CDT): Currently since patient is on thick liquids and modified diet plan will be to have her take her nutrition orally and we will continue meds per G-tube. Flushes with G-tube. Assessment & Plan (02/27/2024 3:03 PM CDT): Continues to tolerate PO, gtube used for flushes only, continue to monitor and keep tube in place for now Assessment & Plan (02/20/2024 1:53 PM CDT): Continue H20 flushes for now pending video swallow, ok to crush meds and take orally Assessment & Plan (02/19/2024 10:52 AM CDT): Refuses TF and meds, now tolerating PO, discussed with nursing staff continue q4hr H20 flushes 30cc Assessment & Plan (02/11/2024 1:39 PM CDT): Mild redness around gastrostomy site, likely due to pulling at it, sutures are in place for now, DC and continue BOBBY Assessment & Plan (02/01/2024 9:34 AM CDT): Tube recently replaced, receiving nepro 40ml/hr, RD following, continue abd binder as tolerated Assessment & Plan (01/25/2024 12:45 PM CDT): New 18fr tube replaced and confirmed on imaging, continue nepro at 40ml/hr with DIGITAL PRODUCT SPECIALIST following for repeat swallow studies Hyperkalemia 01/18/2024 Assessment & Plan (01/18/2024 7:41 AM CDT): Improved after treatment at the hospital. Continue to monitor with dialysis. 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 01/18/2024 Assessment & Plan (04/28/2024 2:31 PM CENTRAL OFFICE FRAME WIRER): Has some improvement with therapy but remains weak with hemiparesis and aphasia, requires full care for all ADLs, unable to reposition self and will require electric hospital bed at home, ongoing PT/OT Contonie asa, statin, eliquis Heart healthy diet with exercise as tolerated Maintain BP and glycemic control F/u PCP Assessment & Plan (04/13/2024 12:49 PM CENTRAL OFFICE FRAME WIRER): Deficits improving have seem to stabilize now ambulatory with walker and gait belt, tolerating PO, speech garbled, continue statin, eliquis, heart healthy diet with exercise as tolerated; may need to transfer to LTC vs home with home health and family to care Assessment & Plan (04/09/2024 1:53 PM CENTRAL OFFICE FRAME WIRER): Deficits improving, now ambulatory with walker and gait belt, tolerating PO, speech remains garbled, continue statin, eliquis, heart healthy diet with exercise as tolerated Assessment & Plan (04/06/2024 8:08 PM CENTRAL OFFICE FRAME WIRER): Improving with therapies, now ambulatory and tolerating PO, speech remains garbled, continue statin, eliquis, heart healthy diet with exercise as tolerated Assessment & Plan (03/31/2024 2:26 PM CENTRAL OFFICE FRAME WIRER): Speech and mobility improving, now ambulatory with walker and gait belt. Continue PT/OT/DIGITAL PRODUCT SPECIALIST, continue statin and Eliquis, maintain BP and glycemic control Assessment & Plan (03/20/2024 8:07 PM CENTRAL OFFICE FRAME WIRER): Improving with therapy, continue statin and Eliquis, maintain BP and glycemic control. Continue PT OT, DIGITAL PRODUCT SPECIALIST, remains a fall risk F/u with neurology as scheduled, plans to DC home with Assessment & Plan (03/15/2024 10:51 AM CENTRAL OFFICE FRAME WIRER): Improving with therapy, continue statin and Eliquis, maintain BP and glycemic control. Continue PT OT, DIGITAL PRODUCT SPECIALIST, remains a fall risk Assessment & Plan (03/06/2024 9:49 PM CDT): Stable, improving with therapies, continue statin, eliquis, PT/OT/DIGITAL PRODUCT SPECIALIST, supportive care, continue to advance diet as tolerated Assessment & Plan (02/27/2024 3:02 PM CDT): Stable, improving with therapies, continue statin, eliquis, PT/OT/DIGITAL PRODUCT SPECIALIST, supportive care with plans to DC home following rehab stay Assessment & Plan (02/20/2024 1:56 PM CDT): Deficits improving with therapy, continue statin and eliquis, PT/OT/DIGITAL PRODUCT SPECIALIST with video swallow scheduled Continue bID zyprexa 2.5mg for now, may tolerate GDR at subsequent visit Assessment & Plan (02/19/2024 10:51 AM CDT): Improving with therapy, no recurrent episodes of agitation since starting BID zyprexa, continue statin and eliquis, PT/OT/DIGITAL PRODUCT SPECIALIST with video swallow scheduled Assessment & Plan (02/11/2024 1:32 PM CDT): Improving, continue statin and eliquis, PT/OT. DIGITAL PRODUCT SPECIALIST following for advancement of diet, will schedule Zyprexa 2.5mg HS rather than In am, conitnue supportive care, fall precautions Assessment & Plan (02/08/2024 3:56 PM CDT): Mobility and speech improving with intermittent agitation, fall risk, zyprexa increased to 2.5mg daily as unable to be redirected at times. Continue statin, eliquis, PT/TO/DIGITAL PRODUCT SPECIALIST, TF nepro per RD recs Assessment & Plan (02/03/2024 8:55 AM CDT): Mobility is improving, remains aphasic, able to follow simple commands and has spontaneous movements of all extremities; continue statin, eliquis, glycemic control, BP management, PT/OT/DIGITAL PRODUCT SPECIALIST Assessment & Plan (02/01/2024 9:33 AM CDT): Mobility is improving, intermittent anxiety, will need to monitor and provide supportive care, attempt to avoid benzos or antipsychotics although may need prn low dose meds due to fall risk and inability to be redirected; continue statin, eliquis, glycemic control, BP management, PT/OT/DIGITAL PRODUCT SPECIALIST Assessment & Plan (01/28/2024 2:35 PM CDT): With associated dysphagia now requiring G-tube feedings. Also has a associated agitation. He has pulled out G-tube on a couple of occasions. Discussed at length with patient's daughter who is a nurse and is present. Also discussed with nursing staff at length. We will convert over to bolus feeding. She was getting 65 cc/hours so we will convert to 250 cc bolus every 4 hours along with 30 cc of water flush. Discussed with daughter and nursing that we will need to see how she tolerates the feeds and if she starts to have any emesis or distention we may have to readjust things. Also Zyprexa low dose was added recently by nurse practitioner which does seem to be helping some Assessment & Plan (01/25/2024 12:46 PM CDT): Ongoing PT/OT/DIGITAL PRODUCT SPECIALIST with generalized weakness, aphasia and R sided facial droop, follows some simple commands, continue statin and eliquis; monitor for fall risk given intermittent agitation; no new meds today but may need PRN due to fall risk Assessment & Plan (01/25/2024 11:13 AM CDT): Mobility is improving now at times getting out of bed without help, continue to monitor for fall risk, PT/OT/DIGITAL PRODUCT SPECIALIST; continue statin and eliquis Assessment & Plan (01/18/2024 5:52 PM CDT): Ongoing R sided weakness, R sided facial droop, aphasia; reports some improvement in spontaneous movement and mumbling. Continue asa, statin, eliquis; of note has documented statin intolerance, will need to find out specifics Continue PT/OT DIGITAL PRODUCT SPECIALIST , tube feeds for now with plans for repeat video swallow Type 2 diabetes mellitus with renal complication 01/18/2024 Assessment & Plan (04/09/2024 1:54 PM CENTRAL OFFICE FRAME WIRER): Glucose logs reviewed and stable, continue HS lantus and mealtime SSI, will try to DC SSI prior to DC home Assessment & Plan (04/06/2024 8:06 PM CENTRAL OFFICE FRAME WIRER): Stable, continue HS lantus and mealtime SSI, will try to DC SSI prior to DC home as able Assessment & Plan (02/27/2024 3:05 PM CDT): Stable since transitioning to PO, continue glargine 32 units HS with mealtime SSI, monitor accuchecks AC and HS Assessment & Plan (01/18/2024 5:57 PM CDT): Glucose high presently, likely due to tube feeds, plans to transition to nepro; continue lantus 28 units HS with q4 hr sliding scale while receiving tube feeds Moderate persistent asthma without complication 01/18/2024 Assessment & Plan (01/18/2024 5:56 PM CDT): Stable on scheduled breo, daily singulair with prn duonebs Pulmonary hypertension 04/11/2023 At risk for amiodarone toxicity with manager terminal u se 10/06/2022 Chronic anticoagulation 10/06/2022 Paroxysmal atrial fibrillation 10/06/2022 Assessment & Plan (04/28/2024 2:28 PM CENTRAL OFFICE FRAME WIRER): Rate controlled, continue metoprolol, amiodarone, eliquis F/u cardiology dr wiley Assessment & Plan (04/13/2024 12:46 PM CENTRAL OFFICE FRAME WIRER): Rate controlled on exam; continue metoprolol, amiodarone, Eliquis ; no recent falls Assessment & Plan (04/06/2024 8:06 PM CENTRAL OFFICE FRAME WIRER): Rate controlled; continue metoprolol, amiodarone, Eliquis Assessment & Plan (03/31/2024 2:29 PM CENTRAL OFFICE FRAME WIRER): Rate controlled on metoprolol, amiodarone; continue b.i.d. Eliquis Assessment & Plan (03/20/2024 8:09 PM CENTRAL OFFICE FRAME WIRER): Stable on metoprolol, amiodarone and eliquis, conitnue to monitor BP and HR Assessment & Plan (03/06/2024 9:50 PM CDT): Stable on metoprolol, amiodarone and eliquis, conitnue Assessment & Plan (03/05/2024 8:34 AM CDT): Stable and rate controlled. Continue metoprolol and apixaban. Continue amiodarone Assessment & Plan (02/20/2024 1:53 PM CDT): Rate controlled, continue amiodarone, eliquis, remains a fall risk; follows with MD Martinez Assessment & Plan (02/19/2024 10:53 AM CDT): continue amiodarone, eliquis, remains a fall risk; follows with MD Martinez Assessment & Plan (02/03/2024 8:56 AM CDT): continue amiodarone, eliquis, remains a fall risk with attempting to get out of bed and chair, continue fall precuations; follows with MD Martinez Assessment & Plan (02/01/2024 9:33 AM CDT): NSR on recent EKG, continue amiodarone, eliquis, follows with MD Martinez; rate controlled on exam Assessment & Plan (01/25/2024 11:14 AM CDT): NSR on recent EKG, continue amiodarone, eliquis, follows with MD Martinez Assessment & Plan (01/18/2024 5:53 PM CDT): NSR on recent EKG, continue amiodarone, eliquis, follows with MD Martinez Assessment & Plan (01/18/2024 7:42 AM CDT): Stable and currently rate controlled. Continue metoprolol and Eliquis. Continue amiodarone ESRD on hemodialysis 10/06/2022 Assessment & Plan (04/28/2024 2:26 PM CENTRAL OFFICE FRAME WIRER): Continue treatments outpatient MWF, epogen on HD days, f/u with nephrology Assessment & Plan (04/09/2024 1:54 PM CENTRAL OFFICE FRAME WIRER): Tolerating HD MWF, at times using p.r.n. lorazepam with HD treatment, anxiety during access. Monitor electrolytes and weight Continue Epogen Assessment & Plan (04/06/2024 8:08 PM CENTRAL OFFICE FRAME WIRER): Continue HD MWF, p.r.n. lorazepam with HD treatment. Monitor electrolytes and weight Continue Epogen Assessment & Plan (03/31/2024 2:26 PM CENTRAL OFFICE FRAME WIRER): Continue HD MWF, continues to use p.r.n. lorazepam with HD treatments; daughter states this is helping,. Monitor electrolytes and weight Continue Epogen Assessment & Plan (03/20/2024 8:08 PM CENTRAL OFFICE FRAME WIRER): Continue HD MWF, continue to monitor electrolytes and weight, may use p.r.n. lorazepam with HD treatments; no reports of recent agitation with treatments Assessment & Plan (03/15/2024 10:52 AM CENTRAL OFFICE FRAME WIRER): Continue HD MWF, continue to monitor electrolytes and weight, may use p.r.n. lorazepam with HD treatments Assessment & Plan (03/06/2024 9:52 PM CDT): Continue HD MWF, may need prn meds due to anxiety and agitation with access site and treatment, continue to monitor electrolytes and weight Assessment & Plan (03/05/2024 8:34 AM CDT): Continue hemodialysis at the facility and labs with dialysis Assessment & Plan (02/27/2024 3:02 PM CDT): Tolerating treatments MWF, continue to monitor labs with HD, receiving treatments within facility Assessment & Plan (02/20/2024 1:55 PM CDT): Tolerating treatments MWF, no reported episodes of agitation during session, continue to monitor labs with HD Assessment & Plan (02/11/2024 1:38 PM CDT): Has missed portions of treatments due to agitation, stable on exam, will try HS zyprexa dosing, may need to increase or add prn lorazepam, continue HD MWF Assessment & Plan (02/08/2024 3:59 PM CDT): Receiving treatments MWF at [facility], intermittent anxiety, increase zyprexa to daily, may need to add PRN benzo to complete full treatment Assessment & Plan (02/03/2024 8:55 AM CDT): Continue treatments on MWF with zyprexa 2.5mg to be given prior to treatments, nephrology following for frequent labs, continue Nepro for TF pending formal swallow study Assessment & Plan (02/01/2024 9:34 AM CDT): Continue HD MWF, at times has been agitated with treatments, will need close monitoring, may need low dose benzo prior to treatment on HD days Assessment & Plan (01/28/2024 2:34 PM CDT): Continues on dialysis at the facility. Routine labs checked with dialysis Assessment & Plan (01/25/2024 12:46 PM CDT): Tolerating treatments MWF, continue calcium acetate, Nepro TF with neprhology following for frequent labs; monitor weights Assessment & Plan (01/25/2024 11:12 AM CDT): Tolerating treatments MWF, continue calcium acetate, Nepro TF with neprhology following for frequent labs Assessment & Plan (01/18/2024 5:55 PM CDT): Continue treatments MWF at [facility], TID calcium acetate, nephrology following, nepro tube feeds ordered, starting on jevity on admission due to no nepro available Assessment & Plan (01/18/2024 7:41 AM CDT): Continue with dialysis 3 times a week. Continue calcium acetate. Labs with dialysis. Preoperative cardiovascular examination 09/20/19 22 Chronic heart failure with preserved ejection fr action 07/02/2019 Assessment & Plan (04/28/2024 2:26 PM CENTRAL OFFICE FRAME WIRER): Stable, continue metoprolol, monitor weights with HD Assessment & Plan (03/20/2024 8:08 PM CENTRAL OFFICE FRAME WIRER): Stable on exam, continue metoprolol, monitor I/O, weights, continue HD Repeat basic labs Assessment & Plan (03/06/2024 9:52 PM CDT): Stable on exam, continue metoprolol, monitor I/O, weights, continue HD Assessment & Plan (02/08/2024 3:59 PM CDT): Stable on exam, continue metoprolol, monitor I/O, weights, continue HD Assessment & Plan (01/18/2024 7:41 AM CDT): Currently compensated. Receives hemodialysis 3 times week. Also continue with metoprolol. Statin myopathy 07/02/2019 Statin intolerance 06/26/2017 Morbid obesity with BMI of 40.0-44.9, adult 02/04 Assessment & Plan (04/06/2024 8:06 PM CENTRAL OFFICE FRAME WIRER): Weight is stable since rehab admission, continue exercise as tolerated, RD following Assessment & Plan (03/20/2024 8:09 PM CENTRAL OFFICE FRAME WIRER): Mobility is improving, recently stopped TF and now on puree diet, continue to monitor weight, RD following; weekly weights while in rehab Assessment & Plan (02/20/2024 1:54 PM CDT): Mobility is improving, recently stopped TF and now on puree diet, continue to monitor weight, RD following Assessment & Plan (01/25/2024 11:14 AM CDT): Encourage mobility as tolerated as condition allows, BMI 37% currently Assessment & Plan (01/18/2024 5:53 PM CDT): Encourage mobility as tolerated as condition allows, BMI 37% currently Hypertensive CHF (congestive heart failure) 02/04 Assessment & Plan (04/13/2024 12:48 PM CENTRAL OFFICE FRAME WIRER): Stable/compensated, continue HD treatments, weekly weights, metoprolol, statin amio, eliquis Assessment & Plan (03/20/2024 8:08 PM CENTRAL OFFICE FRAME WIRER): Stable on metoprolol and amiodarone, continue HD treatments, monitor weight ,low salt diet Assessment & Plan (01/18/2024 5:48 PM CDT): Stable on metoprolol and amiodarone, continue HD treatments, BP goal <140/<90 CVA, old, ataxia 02/20/2017 Assessment & Plan (03/05/2024 8:34 AM CDT): Physical and occupational therapy to continue to work with patient. Assessment & Plan (01/28/2024 2:35 PM CDT): Slight improvement. Continue physical and occupational therapy. Continue apixaban. Continue metoprolol. Continue with insulin and amiodarone and other secondary prevention Assessment & Plan (01/18/2024 7:42 AM CDT): Continue physical and occupational therapy. Continue Eliquis. Continue amiodarone for atrial fibrillation patient also with dysphagia and is on tube feeding. Having loose stools to the tube feeds. After discussion with daughter we will start some banatrol that she will bring in. Noncompliance with medication regimen 05/25/2014 Overview (08/11/2016): Noncompliance with medication regimen Restless legs syndrome 03/31/2014 Overview (08/11/2016): Restless legs Hypertensive left ventricular hypertrophy 2013 Overview (08/11/2016): LVH (left ventricular hypertrophy) due to hypertensive disease Mixed diabetic hyperlipidemi a associated with type 2 diabetes mellitus ([facility]) 05/20/2013 Overview (08/11/2016): DMII WO CMP UNCNTRLD Assessment & Plan (04/13/2024 12:48 PM CENTRAL OFFICE FRAME WIRER): Well controlled on lantus 18 units hs with mealtime SSI, continue accuchecks ac and hs Assessment & Plan (03/15/2024 10:54 AM CENTRAL OFFICE FRAME WIRER): Glucose logs reviewed continue lantus 18 units HS with mealtime SSI, HA1c 7.5% inpatient near goal Assessment & Plan (03/06/2024 9:51 PM CDT): Glucose logs reviewed with intermittent hyperglycemia, has transitioned from tube feeds to by mouth, continue lantus 18 units HS with mealtime SSI, HA1c 7.5% inpatient near goal Assessment & Plan (03/05/2024 8:34 AM CDT): We will continue Lantus lispro and see how she fares. Try to avoid hypoglycemia. Watch oral intake. Assessment & Plan (02/19/2024 10:52 AM CDT): Continue lantus, statin, will need to adjust insulin likely given DC of TF and now starting puree, continue to monitor and trend Assessment & Plan (02/01/2024 9:33 AM CDT): Stable on HS lantus 32 units with q4hr SSI, continue accuchecks with TF Assessment & Plan (01/25/2024 11:11 AM CDT): Glucose better controlled on increased lantus 32 units HS, continue q4 hr SSI while on TF; atorvastatin 20mg daily given recent CVA Assessment & Plan (01/18/2024 7:40 AM CDT): Insulin was reduced to the hospital and now sugars are running higher. Discussed with the patient's daughter who is a nurse. Increase Lantus 32 units and continue to monitor. Continue NovoLog SSI Hypertension associated with diabetes 12/31/2012 Overview (08/11/2016): HYPERTENSION NOS Assessment & Plan (04/28/2024 2:28 PM CENTRAL OFFICE FRAME WIRER): Continue Lantus 18 units HS with mealtime SSI and daughter will assist with med administration Bp stable on metoprolol, monitor for BP goal ,140/<90 Continue accuchecks ac and hs Assessment & Plan (03/31/2024 2:28 PM CENTRAL OFFICE FRAME WIRER): Continue Lantus 18 units HS with mealtime SSI, glucose 236 this a.m., evening glucose 170, continue diabetic diet. BP stable on metoprolol Assessment & Plan (03/15/2024 10:53 AM CENTRAL OFFICE FRAME WIRER): BP stable on metoprolol 50mg daily, continue HS lantus 32 units with q4hr SSI, accuchecks AC and HS Assessment & Plan (02/11/2024 1:39 PM CDT): BP stable on metoprolol 50mg daily, continue HS lantus 32 units with q4hr SSI while on TF, accuchecks AC and HS, monitor for hypoglycemia at times refusing TF Assessment & Plan (02/08/2024 4:00 PM CDT): BP stable on metoprolol 50mg daily, continue HS lantus 32 units with q4hr SSI while on TF, accuchecks AC and HS Assessment & Plan (02/03/2024 8:55 AM CDT): BP stable on metoprolol 50mg daily, continue to monitor for BP goal <140/<90; glucose stable on HS lantus 32 units with q4hr SSI while on TF Assessment & Plan (01/25/2024 12:47 PM CDT): BP stable on metoprolol 50mg once daily, continue to monitor for BP goal <140/<90; glucose stable on HS lantus 32 units with q4hr SSI while on TF Hypothyroidism 12/31/2012 Overview (08/11/2016): HYPOTHYROIDISM NOS Assessment & Plan (04/13/2024 12:51 PM CENTRAL OFFICE FRAME WIRER): Subclinical hypothyroidism with TSH trending up to 92, encourage appropriate administration of medication in early a.m. on empty stomach, Synthroid increased to 200 mcg daily at previous visit with plan to repeat ths in 6 weeks, T3 and T4 normal Assessment & Plan (03/31/2024 2:30 PM CENTRAL OFFICE FRAME WIRER): Subclinical hypothyroidism with TSH trending up to 92, encourage appropriate administration of medication in early a.m. on empty stomach, Synthroid increased to 200 mcg daily Assessment & Plan (03/20/2024 8:09 PM CENTRAL OFFICE FRAME WIRER): Inpatient workup with Tsh elevated with normal t4, ensure medication administration appropriate early am on empty stomach; repeat TSH this week Assessment & Plan (03/15/2024 10:54 AM CENTRAL OFFICE FRAME WIRER): Inpatient workup with Tsh elevated with normal t4, ensure medication administration appropriate and recheck TSH in 4 weeks Assessment & Plan (03/06/2024 9:53 PM CDT): Tsh elevated with normal t4, ensure medication administration appropriate and recheck in 6 weeks Assessment & Plan (02/20/2024 1:54 PM CDT): Stable; Continue synthroid 175 mcg daily Assessment & Plan (02/03/2024 8:56 AM CDT): Continue synthroid 175 mcg daily per home regimen Assessment & Plan (01/25/2024 11:13 AM CDT): Continue synthroid 175 mcg daily per home regimen Assessment & Plan (01/18/2024 5:47 PM CDT): Continue synthroid 175 mcg daily per home regimen, recheck tsh as needed Assessment & Plan (01/18/2024 7:41 AM CDT): Stable. Continue Synthroid. 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 RAINA (obstructive sleep apnea) Assessment & Plan (01/18/2024 5:52 PM CDT): Non compliant with cpap at home with multiple risk factors, contraindicated at this time given condition and enteral feeds Resolved Problems Problem Noted Date Diagnosed Date Resolved Date Aspiration pneumonia 01/18/2024 024 Assessment & Plan (01/18/2024 5:54 PM CDT): Stable on room air to complete PO abx, [employer]IST to follow, DC on prn duonebs, likely could DC Urinary tract infection without hematuria 05/11/2021 02/01/2024 Hyperlipidemia 04/22/2012 09/19/2021 Overview (08/10/2016): HYPERLIPIDEMIA NEC/NOS Immunizations Immunization Administration Dates Next Due Influenza, Unspecified 02/04/2021 Social History Tobacco Use Types Packs/Day Years Used Date Smoking Tobacco: Former Smokeless Tobacco: Never Tobacco Cessation:Counseling Given: Yes Alcohol Use Standard Drinks/Week Comments No 0 (1 standard drink = 0.6 oz pur e alcohol) [facility] Utilities Answer Date Recorded In the past 12 months has [employer], gas, oil, or water [employer] threatened to shut off services in your home? No 02/26/2024 Social Connection and Isolation Panel [NHANES] A nswer Date Recorded In a typical week, how many times do you talk on the phone with family, friends, or neighbors? Three times a week 02/26/2024 How often do you get togethe r with friends or relatives? Three times a week 02/26/2024 How often do you attend chur ch or confucianism services? Never 02/26/2024 Do you belong to any clubs o r organizations such as hindu groups, unions, fraternal or athletic groups, or school groups? No 02/26/2024 How often do you attend meet ings of the clubs or organizations you belong to? Never 02/26/2024 Are you , , di vorced, , never , or living with a partner? 02/26/2024 AUDIT-C Answer Date Recorded Q1: How often do you have a drink containing alc ohol? Monthly or less 02/25/2024 Q2: How many drinks containi ng alcohol do you have on a typical day when you are drinking? 1 or 2 02/25/2024 Q3: How often do you have si x or more drinks on one occasion? Less than monthly 02/25/2024 Overall Financial Resource Strain (CARDIA) Answe r Date Recorded How hard is it for you to pa y for the very basics like food, housing, medical care, and heating? Not hard at all 02/26/2024 PHQ-2 Answer Date Recorded PHQ-2 Total Score (If total score is 3 or more points, staff should administer the PHQ-9) 3 05/11/2021 Hunger Vital Sign Answer Date Recorded Within the past 12 months, y ou worried that your food would run out before you got the money to buy more. Never true 02/26/20 24 Within the past 12 months, t he food you bought just didn't last and you didn't have money to get more. Never true 02/26/2024 PRAPARE - Transportation Answer Date Re corded In the past 12 months, has l ack of transportation kept you from medical appointments or from getting medications? No 02/05 In the past 12 months, has l ack of transportation kept you from meetings, work, or from getting things needed for daily living? No 02/26/2024 Housing Stability Vital Sign Answer Yonathan e Recorded In the last 12 months, was t here a time when you were not able to pay the mortgage or rent on time? No 05/13/2021 In the last 12 months, how many places have you lived? 1 05/13/2021 In the last 12 months, was t here a time when you did not have a steady place to sleep or slept in a halfway (including now)? No 05/13/2021 Housing Stability Vital Sign Answer Yonathan e Recorded In the last 12 months, was t here a time when you were not able to pay the mortgage or rent on time? No 02/26/2024 In the past 12 months, how m any times have you moved where you were living? 0 02/26/2024 At any time in the past 12 m [facility], were you homeless or living in a halfway (including now)? No 02/26/2024 Personal Safety Answer Date Recorded Have you ever been in or are you currently in a harmful physical or emotional relationship or is someone making you feel afraid or unsafe? Denies 02/25/2024 Comments No Sex and Gender Information Value Date Recorded Sex Assigned at Not on file Legal Sex Female 10:22 AM CENTRAL OFFICE FRAME WIRER Gender Identity Not on file Sexual Orientation Not on file Last Filed Vital Signs Vital Sign Reading Time Taken Comments Blood Pressure 120/66 07/01/2024 9:38 AM CENTRAL OFFICE FRAME WIRER Pulse 55 07/01/2024 9:38 AM CENTRAL OFFICE FRAME WIRER Temperature 36.5 C (97.7 F) 03/03/2024 11:40 AM CDT Respiratory Rate 22 03/05/2024 8:31 AM CDT Oxygen Saturation 97% 07/01/2024 9:38 AM CENTRAL OFFICE FRAME WIRER Inhaled Oxygen Concentration - - Weight 89.7 kg (197 lb 11.2 oz) 07/01/2024 9:38 AM CENTRAL OFFICE FRAME WIRER Height 162.6 cm (5' 4 ) 07/01/2024 9:38 AM CENTRAL OFFICE FRAME WIRER Body Mass Index 33.94 07/01/2024 9:38 AM CENTRAL OFFICE FRAME WIRER Plan of Treatment Not on file Procedures Procedure Name Priority Date/Time Associated Diagnosis Comments POCT LIPID PANEL Routine 07/01/2024 9:57 AM CENTRAL OFFICE FRAME WIRER Need for lipid screening EGFR Routine 03/03/2024 6:45 AM CDT HEMOGLOBIN A1C Routine 02/27/2024 5:59 AM CDT HEPATITIS PANEL, ACUTE STAT 05/08/2022 3:59 PM CENTRAL OFFICE FRAME WIRER from Last 3 Months or Most Recently Relevant to Health Maintenance Results * POCT lipid panel (07/01/2024 9:57 AM CENTRAL OFFICE FRAME WIRER) Cholesterol, POC 138 mg/dL Comment:GLU = 176 HDL, POC 17 mg/dL Triglycerides, POC 168 mg/dL LDL Cholesterol POC 88 mg/dL Chol/HDL Ratio, POC 5.2 Non-HDL Cholesterol, POC 121 mg/dL Cholesterol Total, POC 138 mg/dL Capillary blood 07/01/2024 9 :57 AM CENTRAL OFFICE FRAME WIRER us Uriel Gillette MD POINT OF CARE TEST ORDER CANDIE Final Result * (ABNORMAL) eGFR (03/03/2024 6:45 AM CDT) eGFR 6(L) >=60 mL/min/1. 73 m2 Comment: Interpretive Data Reference Interval Normal >/= 90 mL/min/1.73m2 Mildly decreased* 60 - 89 mL/min/1.73m2 Mildly to moderately decreased 45 - 59 mL/min/1.73m2 Moderately to severely decreased 30 - 44 mL/min/1.73m2 Severely decreased 15 - 29 mL/min/1.73m2 Kidney Failure < 15 mL/min/1.73m2 *Relative to young adult level Estimated glomerular filtration rate is determined by the 2020 CKD-EPI equation recommended by the National Kidney Foundation (A Unifying Approach to GFR Estimation: Recommendations of the NKF-ASK Task Force on Reassessing the Inclusion of Race in Diagnosing Kidney Disease, JASN 2020). The CKD-EPI equation should not be used for patients with unstable renal function and has not been validated in children and those over 70. Current interpretive data was last reviewed 2021. Blood 03/03/2024 6:45 AM CDT 03/03/2024 6:51 AM CDT us Ty Reyes MD LAB BLOOD ORDERABLES Final Resu lt [facility] [address] Department [place] [address] * (ABNORMAL) Hemoglobin A1c (02/27/2024 5:59 AM CDT) Hgb A1C 7.5(H) 4.0 - 5.6 % Estimated Average Glucose 169 mg/dL [facility] Comment: The ADA recommends reporting an estimated Average Glucose (eAG) with all Hemoglobin A1c results using the equation derived from a study of 507 normal and diabetic adults. Minority populations were underrepresented and children were not included. (Diabetes Care 31:8041-9271, 2007). The eAG is not equivalent to a fasting glucose. Blood 02/27/2024 5:59 AM CDT 02/27/2024 7:11 AM CDT Asif Delgadillo MD LAB BLOOD ORDERABLES Final Re sult [facility] [address] Department [place] [address] * Hepatitis panel, acute (05/08/2022 3:59 PM CENTRAL OFFICE FRAME WIRER) Hep A IgM Nonreactive Nonreactive [facility] Comment: Interpretive Data: If Hep A IgM Ab is reported as Equivocal, a new sample should be drawn in two weeks for testing. Current interpretive data was last revised on 19. Hep B core IgM Nonreactive Nonreactive [facility] Comment: Interpretive Data If HepB Core IgM Ab is reported as Equivocal, a new sample should be drawn in two weeks for testing. Current interpretive data was last revised on 19. Hep C Ab Nonreactive Nonreactive [facility] Comment: Interpretive Data Nonreactive: Antibodies to HCV not detected. Does NOT exclude the possibility of recent exposure to HCV. Equivocal: Equivocal for HCV antibodies. Supplemental molecular testing will be automatically performed to determine infection status in accordance with current CDC screening recommendations. Reactive: Positive for HCV antibodies. This may represent current or past HCV infection. Supplemental molecular testing will be automatically performed to determine current infection status in accordance with current CDC screening recommendations. Interpretive data was last revised on 2019. HepBsAg Nonreactive Nonreactive [facility] Blood 05/08/2022 3:59 PM CENTRAL OFFICE FRAME WIRER 05/08/2022 3:59 PM CENTRAL OFFICE FRAME WIRER us Mellissa Garcia DO LAB MICROBIOLOGY - GENERAL ORD ERABLES Final Result [facility] [address] Department [place] [address] from Last 3 Months or Most Recently Relevant to Health Maintenance Insurance [facility] BLUE CROSS MEDICARE SUPPLEMENT Advance Directives For more information, please contact: [phone] Documents on File Type Date Recorded Patient Product Planner Expl anation ADVANCE DIRECTIVE 03/04/2024 10:[address] - Phys Order for PT Preferences * Full Code (Latest Code Status on File) Date Activated Date Inactivated Comments 02/25/2024 5:55 PM 03/03/2024 4:42 PM * Full Code Date Activated Date Inactivated Comments 05/11/2021 3:52 AM 05/14/2021 8:52 PM Care Teams Multifocal Button Generator Relationship Specialty Start Date End Date Rikki Amezquita MD [address] [facility] [address] [place] [address] PCP - General Family Medicine 07/01/24 Mona Currie MD PhD Medical Oncologist/Manager Commercial Medical Oncology 01/07/21 Sammy Shepard MD Consulting Physician Nephrology 05/14/21
--- OUTSIDE RECORDS SUMMARY | 2024-07-16 17:44 | XMS_ITS ---
Author Organization [facility] Address [address] [place] [address] Care Team Providers Care Antiquer Name Role Phone Mona Currie MD PhD Unavailable [phone] Sammy Shepard MD Unavailable [phone] Rikki Amezquita MD Primary Care Provider Dialysis Access Sites Type Status Location Placement Date Removal Da te Hemodialysis AV Access Upper arm Active Left Upper Arm - Anterior Procedures Procedure Name Priority Date/Time Associated Diagnosis Comments POCT LIPID PANEL Routine 07/01/2024 9:57 AM BUILDING CONTRACTOR Need for lipid screening EGFR Routine 03/03/2024 6:45 AM CDT HEMOGLOBIN A1C Routine 02/27/2024 5:59 AM CDT HEPATITIS PANEL, ACUTE STAT 05/08/2022 3:59 PM BUILDING CONTRACTOR from Last 3 Months or Most Recently Relevant to Health Maintenance Allergies Active Allergy Reactions Criticality Noted Date Comments Diphenhydramine Other (See comments) Low Restless leg Nickel Rash Medium Nifedipine Chest tightness Medium Mmpdgxl-Giw-Nke Reductase Inhibitors Muscle pain Medium Sulfa Hives [...] tablet (20 mg total) nightly Active banana kculhr-WQW-de lupillo 5 gram-45 kcal/60 mL liquid in [...] tube 1 tablet (200 mcg total) early childhood assistant before breakfast 03/31/20 Active Additional Information Patient taking differently: 175 mcggastrostomy tube Daily (early AM), Reported on 07/01/2024 LORazepam (ATIVAN) 0.5 mg tablet Take 1 tablet (0.5 mg total) by mouth every 12 (twelve) hours as needed for anxiety 28 tablet 4 04/14/20 24 Active amiodarone (PACERONE) 200 mg tablet ADMINISTER 1 TABLET PER TUBE ONCE DAILY 30 tablet 11 07/08/19 25 Active amiodarone (PACERONE) 200 mg tablet Administer per tube 1 tablet (200 mg total) daily 30 tablet 06/03/19 25 2024 Discontinued Active Problems Problem Noted Date Diagnosed Date Centrilobular emphysema 04/13/2024 Assessment & Plan (04/28/2024 2:26 PM BUILDING CONTRACTOR): Stable on room air, continue trelegy, spiriva, prn duonebs Assessment & Plan (04/13/2024 12:50 PM BUILDING CONTRACTOR): Stable on room air, continue trelegy, spiriva, [...] 02/26/2024 Assessment & Plan (04/28/2024 2:29 PM BUILDING CONTRACTOR): Hb 9-10 at baseline, stable, continue epogen [...] 01/25/2024 Assessment & Plan (04/28/2024 2:25 PM BUILDING CONTRACTOR): Tube removed, keep healing stoma clean, dry, covered. F/u with PCP Assessment & Plan (04/13/2024 12:46 PM BUILDING CONTRACTOR): Recently pulled out by patient, surgical site is healing, continue to clean daily and cover with dry gauze Assessment & Plan (04/09/2024 1:53 PM BUILDING CONTRACTOR): Ok to keep tube out, cover area daily with dry gauze until healed, notify provider for change in condition or sx of dysphagia Assessment & Plan (04/06/2024 8:05 PM BUILDING CONTRACTOR): Now tolerating PO, likely could permanently DC soon, continue with h2o flushes for now Assessment & Plan (03/15/2024 10:55 AM BUILDING CONTRACTOR): Continue to flush q.i.d., able to tolerate food by mouth, [employer] following Assessment & Plan (03/06/2024 9:49 PM [...] on imaging, continue nepro at 40ml/hr with [employer] following for repeat swallow studies Hyperkalemia 01/18/2024 Assessment & Plan (01/18/2024 7:41 AM CDT): Improved after treatment at the hospital. Continue to monitor with dialysis. 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 01/18/2024 Assessment & Plan (04/28/2024 2:31 PM BUILDING CONTRACTOR): Has some improvement with therapy but remains weak with hemiparesis and aphasia, requires full care for all ADLs, unable to reposition self and will require electric hospital bed at home, ongoing PT/OT Contonie asa, statin, eliquis Heart healthy diet with exercise as tolerated Maintain BP and glycemic control F/u PCP Assessment & Plan (04/13/2024 12:49 PM BUILDING CONTRACTOR): Deficits improving have seem to stabilize now ambulatory with walker and gait belt, tolerating PO, speech garbled, continue statin, eliquis, heart healthy diet with exercise as tolerated; may need to transfer to LTC vs home with home health and family to care Assessment & Plan (04/09/2024 1:53 PM BUILDING CONTRACTOR): Deficits improving, now ambulatory with walker and gait belt, tolerating PO, speech remains garbled, continue statin, eliquis, heart healthy diet with exercise as tolerated Assessment & Plan (04/06/2024 8:08 PM BUILDING CONTRACTOR): Improving with therapies, now ambulatory and tolerating PO, speech remains garbled, continue statin, eliquis, heart healthy diet with exercise as tolerated Assessment & Plan (03/31/2024 2:26 PM BUILDING CONTRACTOR): Speech and mobility improving, now ambulatory with walker and gait belt. Continue PT/OT/[employer], continue statin and Eliquis, maintain BP and glycemic control Assessment & Plan (03/20/2024 8:07 PM BUILDING CONTRACTOR): Improving with therapy, continue statin and Eliquis, maintain BP and glycemic control. Continue PT OT, [employer], remains a fall risk F/u with neurology as scheduled, plans to DC home with Assessment & Plan (03/15/2024 10:51 AM BUILDING CONTRACTOR): Improving with therapy, continue statin and Eliquis, maintain BP and glycemic control. Continue PT OT, [employer], remains a fall risk Assessment & Plan (03/06/2024 9:49 PM CDT): Stable, improving with therapies, continue statin, eliquis, PT/OT/[employer], supportive care, continue to advance diet as tolerated Assessment & Plan (02/27/2024 3:02 PM CDT): Stable, improving with therapies, continue statin, eliquis, PT/OT/[employer], supportive care with plans to DC home following rehab stay Assessment & Plan (02/20/2024 1:56 PM CDT): Deficits improving with therapy, continue statin and eliquis, PT/OT/[employer] with video swallow scheduled Continue bID zyprexa 2.5mg for now, may tolerate GDR at subsequent visit Assessment & Plan (02/19/2024 10:51 AM CDT): Improving with therapy, no recurrent episodes of agitation since starting BID zyprexa, continue statin and eliquis, PT/OT/[employer] with video swallow scheduled Assessment & Plan (02/11/2024 1:32 PM CDT): Improving, continue statin and eliquis, PT/OT. [employer] following for advancement of diet, will schedule Zyprexa 2.5mg HS rather than In am, conitnue supportive care, fall precautions Assessment & Plan (02/08/2024 3:56 PM CDT): Mobility and speech improving with intermittent agitation, fall risk, zyprexa increased to 2.5mg daily as unable to be redirected at times. Continue statin, eliquis, PT/TO/[employer], TF zainab per RD recs Assessment & Plan (02/03/2024 8:55 AM CDT): Mobility is improving, remains aphasic, able to follow simple commands and has spontaneous movements of all extremities; continue statin, eliquis, glycemic control, BP management, PT/OT/[employer] Assessment & Plan (02/01/2024 9:33 AM CDT): Mobility is improving, intermittent anxiety, will need to monitor and provide supportive care, attempt to avoid benzos or antipsychotics although may need prn low dose meds due to fall risk and inability to be redirected; continue statin, eliquis, glycemic control, BP management, PT/OT/[employer] Assessment & Plan (01/28/2024 2:35 PM CDT): [...] & Plan (01/25/2024 12:46 PM CDT): Ongoing PT/OT/[employer] with generalized weakness, aphasia and R sided facial droop, follows some simple commands, continue statin and eliquis; monitor for fall risk given intermittent agitation; no new meds today but may need PRN due to fall risk Assessment & Plan (01/25/2024 11:13 AM CDT): Mobility is improving now at times getting out of bed without help, continue to monitor for fall risk, PT/OT/[employer]; continue statin and eliquis Assessment & Plan (01/18/2024 5:52 PM CDT): Ongoing R sided weakness, R sided facial droop, aphasia; reports some improvement in spontaneous movement and mumbling. Continue asa, statin, eliquis; of note has documented statin intolerance, will need to find out specifics Continue PT/OT [employer] , tube feeds for now with plans for repeat video swallow Type 2 diabetes mellitus with renal complication 01/18/2024 Assessment & Plan (04/09/2024 1:54 PM BUILDING CONTRACTOR): Glucose logs reviewed and stable, continue HS lantus and mealtime SSI, will try to DC SSI prior to DC home Assessment & Plan (04/06/2024 8:06 PM BUILDING CONTRACTOR): Stable, continue HS lantus and mealtime SSI, [...] 04/11/2023 At risk for amiodarone toxicity with nursing home u se 10/06/2022 Chronic anticoagulation 10/06/2022 Paroxysmal atrial fibrillation 10/06/2022 Assessment & Plan (04/28/2024 2:28 PM BUILDING CONTRACTOR): Rate controlled, continue metoprolol, amiodarone, eliquis F/u cardiology dr wiley Assessment & Plan (04/13/2024 12:46 PM BUILDING CONTRACTOR): Rate controlled on exam; continue metoprolol, amiodarone, Eliquis ; no recent falls Assessment & Plan (04/06/2024 8:06 PM BUILDING CONTRACTOR): Rate controlled; continue metoprolol, amiodarone, Eliquis Assessment & Plan (03/31/2024 2:29 PM BUILDING CONTRACTOR): Rate controlled on metoprolol, amiodarone; continue b.i.d. Eliquis Assessment & Plan (03/20/2024 8:09 PM BUILDING CONTRACTOR): Stable on metoprolol, amiodarone and eliquis, conitnue [...] 10/06/2022 Assessment & Plan (04/28/2024 2:26 PM BUILDING CONTRACTOR): Continue treatments outpatient MWF, epogen on HD days, f/u with nephrology Assessment & Plan (04/09/2024 1:54 PM BUILDING CONTRACTOR): Tolerating HD MWF, at times using p.r.n. lorazepam with HD treatment, anxiety during access. Monitor electrolytes and weight Continue Epogen Assessment & Plan (04/06/2024 8:08 PM BUILDING CONTRACTOR): Continue HD MWF, p.r.n. lorazepam with HD treatment. Monitor electrolytes and weight Continue Epogen Assessment & Plan (03/31/2024 2:26 PM BUILDING CONTRACTOR): Continue HD MWF, continues to use p.r.n. lorazepam with HD treatments; daughter states this is helping,. Monitor electrolytes and weight Continue Epogen Assessment & Plan (03/20/2024 8:08 PM BUILDING CONTRACTOR): Continue HD MWF, continue to monitor electrolytes and weight, may use p.r.n. lorazepam with HD treatments; no reports of recent agitation with treatments Assessment & Plan (03/15/2024 10:52 AM BUILDING CONTRACTOR): Continue HD MWF, continue to monitor electrolytes [...] 3:59 PM CDT): Receiving treatments MWF at [facility], intermittent anxiety, increase zyprexa to daily, may [...] 5:55 PM CDT): Continue treatments MWF at [facility], TI calcium acetate, nephrology following, nepro tube feeds ordered, starting on jevity on admission due to no nepro available Assessment & Plan (01/18/2024 7:41 AM CDT): Continue with dialysis 3 times a week. Continue calcium acetate. Labs with dialysis. Preoperative cardiovascular examination 09/20/19 22 Chronic heart failure with preserved ejection fr action 07/02/2019 Assessment & Plan (04/28/2024 2:26 PM BUILDING CONTRACTOR): Stable, continue metoprolol, monitor weights with HD Assessment & Plan (03/20/2024 8:08 PM BUILDING CONTRACTOR): Stable on exam, continue metoprolol, monitor I/O, [...] 02/04 Assessment & Plan (04/06/2024 8:06 PM BUILDING CONTRACTOR): Weight is stable since rehab admission, continue exercise as tolerated, RD following Assessment & Plan (03/20/2024 8:09 PM BUILDING CONTRACTOR): Mobility is improving, recently stopped TF and [...] 02/04 Assessment & Plan (04/13/2024 12:48 PM BUILDING CONTRACTOR): Stable/compensated, continue HD treatments, weekly weights, metoprolol, statin amiokyriequis Assessment & Plan (03/20/2024 8:08 PM BUILDING CONTRACTOR): Stable on metoprolol and amiodarone, continue HD [...] a associated with type 2 diabetes mellitus ([facility]) 05/20/2013 Overview (08/11/2016): DMII WO CMP UNCNTRLD Assessment & Plan (04/13/2024 12:48 PM BUILDING CONTRACTOR): Well controlled on lantus 18 units hs with mealtime SSI, continue accuchecks ac and hs Assessment & Plan (03/15/2024 10:54 AM BUILDING CONTRACTOR): Glucose logs reviewed continue lantus 18 units [...] NOS Assessment & Plan (04/28/2024 2:28 PM BUILDING CONTRACTOR): Continue Lantus 18 units HS with mealtime SSI and daughter will assist with med administration Bp stable on metoprolol, monitor for BP goal ,140/<90 Continue accuchecks ac and hs Assessment & Plan (03/31/2024 2:28 PM BUILDING CONTRACTOR): Continue Lantus 18 units HS with mealtime SSI, glucose 236 this a.m., evening glucose 170, continue diabetic diet. BP stable on metoprolol Assessment & Plan (03/15/2024 10:53 AM BUILDING CONTRACTOR): BP stable on metoprolol 50mg daily, continue [...] NOS Assessment & Plan (04/13/2024 12:51 PM BUILDING CONTRACTOR): Subclinical hypothyroidism with TSH trending up to 92, encourage appropriate administration of medication in early a.m. on empty stomach, Synthroid increased to 200 mcg daily at previous visit with plan to repeat ths in 6 weeks, T3 and T4 normal Assessment & Plan (03/31/2024 2:30 PM BUILDING CONTRACTOR): Subclinical hypothyroidism with TSH trending up to 92, encourage appropriate administration of medication in early a.m. on empty stomach, Synthroid increased to 200 mcg daily Assessment & Plan (03/20/2024 8:09 PM BUILDING CONTRACTOR): Inpatient workup with Tsh elevated with normal t4, ensure medication administration appropriate early am on empty stomach; repeat TSH this week Assessment & Plan (03/15/2024 10:54 AM BUILDING CONTRACTOR): Inpatient workup with Tsh elevated with normal [...] this time given condition and enteral feeds Immunizations Immunization Administration Dates Next Due Influenza, Unspecified 02/04/2021 Social History Tobacco Use Types Packs/Day Years Used Date Smoking Tobacco: Former Smokeless Tobacco: Never Tobacco Cessation:Counseling Given: Yes Alcohol Use Standard Drinks/Week Comments No 0 (1 standard drink = 0.6 oz pur e alcohol) [facility] Utilities Answer Date Recorded In the past 12 months has th e electric, gas, oil, or water [employer] threatened to shut off services in your [...] often do you attend chur ch or jewish services? Never 02/26/2024 Do you belong to any clubs o r organizations such as judaism groups, unions, fraternal or athletic groups, or [...] place to sleep or slept in a snf (including now)? No 05/13/2021 Housing Stability Vital Sign Answer Yonathan e Recorded In the last 12 months, was t here a time when you were not able to pay the mortgage or rent on time? No 02/26/2024 In the past 12 months, how m any times have you moved where you were living? 0 02/26/2024 At any time in the past 12 m [facility], were you homeless or living in a snf (including now)? No 02/26/2024 Personal Safety Answer Date Recorded Have you ever been in or are you currently in a harmful physical or emotional relationship or is someone making you feel afraid or unsafe? Denies 02/25/2024 Comments No Sex and Gender Information Value Date Recorded Sex Assigned at Not on file Legal Sex Female 10:22 AM BUILDING CONTRACTOR Gender Identity Not on file Sexual Orientation Not on file Last Filed Vital Signs Vital Sign Reading Time Taken Comments Blood Pressure 120/66 07/01/2024 9:38 AM BUILDING CONTRACTOR Pulse 55 07/01/2024 9:38 AM BUILDING CONTRACTOR Temperature 36.5 C (97.7 F) 03/03/2024 11:40 AM CDT Respiratory Rate 22 03/05/2024 8:31 AM CDT Oxygen Saturation 97% 07/01/2024 9:38 AM BUILDING CONTRACTOR Inhaled Oxygen Concentration - - Weight 89.7 kg (197 lb 11.2 oz) 07/01/2024 9:38 AM BUILDING CONTRACTOR Height 162.6 cm (5' 4 ) 07/01/2024 9:38 AM BUILDING CONTRACTOR Body Mass Index 33.94 07/01/2024 9:38 AM BUILDING CONTRACTOR Results * POCT lipid panel (07/01/2024 9:57 AM BUILDING CONTRACTOR) [facility] Signature Cholesterol, POC 138 mg/dL Comment:GLU = 176 HDL, POC 17 mg/dL Triglycerides, POC 168 mg/dL LDL Cholesterol POC 88 mg/dL Chol/HDL Ratio, POC 5.2 Non-HDL Cholesterol, POC 121 mg/dL Cholesterol Total, POC 138 mg/dL Capillary blood 07/01/2024 9 :57 AM BUILDING CONTRACTOR us Uriel Gillette MD POINT OF CARE TEST ORDER CANDIE Final Result * (ABNORMAL) eGFR (03/03/2024 6:45 AM CDT) [facility] eGFR 6(L) >=60 mL/min/1. 73 m2 Comment: [...] MD LAB BLOOD ORDERABLES Final Resu lt [facility] [address] Department [place] [address] * (ABNORMAL) Hemoglobin A1c (02/27/2024 5:59 AM CDT) Hgb A1C 7.5(H) 4.0 - 5.6 % Estimated Average Glucose 169 mg/dL [facility] Comment: The ADA recommends reporting an estimated Average Glucose (eAG) with all Hemoglobin A1c results using the equation derived from a study of 507 normal and diabetic adults. Minority populations were underrepresented and children were not included. (Diabetes Care 31:0700-8925, 2008). The eAG is not equivalent to a fasting glucose. Blood 02/27/2024 5:59 AM CDT 02/27/2024 7:11 AM CDT Asif Delgadillo MD LAB BLOOD ORDERABLES Final Re sult [facility] [address] Department [place] [address] * Hepatitis panel, acute (05/08/2022 3:59 PM BUILDING CONTRACTOR) Hep A IgM Nonreactive Nonreactive [facility] Comment: Interpretive Data: If Hep A IgM Ab is reported as Equivocal, a new sample should be drawn in two weeks for testing. Current interpretive data was last revised on 19. Hep B core IgM Nonreactive Nonreactive [facility] Comment: Interpretive Data If HepB Core IgM Ab is reported as Equivocal, a new sample should be drawn in two weeks for testing. Current interpretive data was last revised on 19. Hep C Ab Nonreactive Nonreactive [facility] Comment: Interpretive Data Nonreactive: Antibodies to HCV [...] revised on 2019. HepBsAg Nonreactive Nonreactive [facility] Blood 05/08/2022 3:59 PM BUILDING CONTRACTOR 05/08/2022 3:59 PM BUILDING CONTRACTOR Mellissa Garcia DO LAB MICROBIOLOGY - GENERAL ORD ERABLES Final Result [facility] [address] Department [place] [address] from Last 3 Months or Most Recently Relevant to Health Maintenance
--- OUTSIDE RECORDS SUMMARY | 2024-07-16 17:44 | XMS_ITS | Clinical Summary ---
Author Organization [facility] Address [address] [place] [address] Care Team Providers Care Potato Chip Processing Supervisor Name Role Phone Mona Currie MD PhD Unavailable [phone] Sammy Shepard MD Unavailable [phone] Rikki Amzequita MD Primary Care Provider Allergies Active Allergy Reactions Criticality Noted Date Comments Diphenhydramine Other (See comments) Low Restless leg Nickel Rash Medium Nifedipine Chest tightness Medium Lnsfksb-Aou-Fur Reductase Inhibitors Muscle pain Medium Sulfa Hives [...] tablet (20 mg total) nightly Active banana finsuj-KPE-ae lupillo 5 gram-45 kcal/60 mL liquid in [...] 2 (two) times a day 30 tablet 10/28/20 24 Active Additional Information Patient taking differently: 50 mgoralNightly, Reported on 07/01/2024 levothyroxine (SYNTHROID) 200 mcg tablet Administer per tube 1 tablet (200 mcg total) contract admin before breakfast 03/31/20 Active Additional Information Patient [...] 04/13/2024 Assessment & Plan (04/28/2024 2:26 PM BINDER FOLDER OPERATOR): Stable on room air, continue trelegy, spiriva, prn duonebs Assessment & Plan (04/13/2024 12:50 PM BINDER FOLDER OPERATOR): Stable on room air, continue trelegy, spiriva, [...] 02/26/2024 Assessment & Plan (04/28/2024 2:29 PM BINDER FOLDER OPERATOR): Hb 9-10 at baseline, stable, continue epogen [...] 01/25/2024 Assessment & Plan (04/28/2024 2:25 PM BINDER FOLDER OPERATOR): Tube removed, keep healing stoma clean, dry, covered. F/u with PCP Assessment & Plan (04/13/2024 12:46 PM BINDER FOLDER OPERATOR): Recently pulled out by patient, surgical site is healing, continue to clean daily and cover with dry gauze Assessment & Plan (04/09/2024 1:53 PM BINDER FOLDER OPERATOR): Ok to keep tube out, cover area daily with dry gauze until healed, notify provider for change in condition or sx of dysphagia Assessment & Plan (04/06/2024 8:05 PM BINDER FOLDER OPERATOR): Now tolerating PO, likely could permanently DC soon, continue with h2o flushes for now Assessment & Plan (03/15/2024 10:55 AM BINDER FOLDER OPERATOR): Continue to flush q.i.d., able to tolerate food by mouth, PIT HAND following Assessment & Plan (03/06/2024 9:49 PM [...] on imaging, continue nepro at 40ml/hr with PIT HAND following for repeat swallow studies Hyperkalemia 01/18/2024 Assessment & Plan (01/18/2024 7:41 AM CDT): Improved after treatment at the hospital. Continue to monitor with dialysis. 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 01/18/2024 Assessment & Plan (04/28/2024 2:31 PM BINDER FOLDER OPERATOR): Has some improvement with therapy but remains weak with hemiparesis and aphasia, requires full care for all ADLs, unable to reposition self and will require electric hospital bed at home, ongoing PT/OT Contonie asa, statin, eliquis Heart healthy diet with exercise as tolerated Maintain BP and glycemic control F/u PCP Assessment & Plan (04/13/2024 12:49 PM BINDER FOLDER OPERATOR): Deficits improving have seem to stabilize now ambulatory with walker and gait belt, tolerating PO, speech garbled, continue statin, eliquis, heart healthy diet with exercise as tolerated; may need to transfer to LTC vs home with home health and family to care Assessment & Plan (04/09/2024 1:53 PM BINDER FOLDER OPERATOR): Deficits improving, now ambulatory with walker and gait belt, tolerating PO, speech remains garbled, continue statin, eliquis, heart healthy diet with exercise as tolerated Assessment & Plan (04/06/2024 8:08 PM BINDER FOLDER OPERATOR): Improving with therapies, now ambulatory and tolerating PO, speech remains garbled, continue statin, eliquis, heart healthy diet with exercise as tolerated Assessment & Plan (03/31/2024 2:26 PM BINDER FOLDER OPERATOR): Speech and mobility improving, now ambulatory with walker and gait belt. Continue PT/OT/PIT HAND, continue statin and Eliquis, maintain BP and glycemic control Assessment & Plan (03/20/2024 8:07 PM BINDER FOLDER OPERATOR): Improving with therapy, continue statin and Eliquis, maintain BP and glycemic control. Continue PT OT, PIT HAND, remains a fall risk F/u with neurology as scheduled, plans to DC home with Assessment & Plan (03/15/2024 10:51 AM BINDER FOLDER OPERATOR): Improving with therapy, continue statin and Eliquis, maintain BP and glycemic control. Continue PT OT, PIT HAND, remains a fall risk Assessment & Plan (03/06/2024 9:49 PM CDT): Stable, improving with therapies, continue statin, eliquis, PT/OT/PIT HAND, supportive care, continue to advance diet as tolerated Assessment & Plan (02/27/2024 3:02 PM CDT): Stable, improving with therapies, continue statin, eliquis, PT/OT/PIT HAND, supportive care with plans to DC home following rehab stay Assessment & Plan (02/20/2024 1:56 PM CDT): Deficits improving with therapy, continue statin and eliquis, PT/OT/PIT HAND with video swallow scheduled Continue bID zyprexa 2.5mg for now, may tolerate GDR at subsequent visit Assessment & Plan (02/19/2024 10:51 AM CDT): Improving with therapy, no recurrent episodes of agitation since starting BID zyprexa, continue statin and eliquis, PT/OT/PIT HAND with video swallow scheduled Assessment & Plan (02/11/2024 1:32 PM CDT): Improving, continue statin and eliquis, PT/OT. PIT HAND following for advancement of diet, will schedule Zyprexa 2.5mg HS rather than In am, conitnue supportive care, fall precautions Assessment & Plan (02/08/2024 3:56 PM CDT): Mobility and speech improving with intermittent agitation, fall risk, zyprexa increased to 2.5mg daily as unable to be redirected at times. Continue statin, eliquis, PT/TO/PIT HAND, TF nepro per RD recs Assessment & Plan (02/03/2024 8:55 AM CDT): Mobility is improving, remains aphasic, able to follow simple commands and has spontaneous movements of all extremities; continue statin, eliquis, glycemic control, BP management, PT/OT/PIT HAND Assessment & Plan (02/01/2024 9:33 AM CDT): Mobility is improving, intermittent anxiety, will need to monitor and provide supportive care, attempt to avoid benzos or antipsychotics although may need prn low dose meds due to fall risk and inability to be redirected; continue statin, eliquis, glycemic control, BP management, PT/OT/PIT HAND Assessment & Plan (01/28/2024 2:35 PM CDT): [...] & Plan (01/25/2024 12:46 PM CDT): Ongoing PT/OT/PIT HAND with generalized weakness, aphasia and R sided facial droop, follows some simple commands, continue statin and eliquis; monitor for fall risk given intermittent agitation; no new meds today but may need PRN due to fall risk Assessment & Plan (01/25/2024 11:13 AM CDT): Mobility is improving now at times getting out of bed without help, continue to monitor for fall risk, PT/OT/PIT HAND; continue statin and eliquis Assessment & Plan (01/18/2024 5:52 PM CDT): Ongoing R sided weakness, R sided facial droop, aphasia; reports some improvement in spontaneous movement and mumbling. Continue asa, statin, eliquis; of note has documented statin intolerance, will need to find out specifics Continue PT/OT PIT HAND , tube feeds for now with plans for repeat video swallow Type 2 diabetes mellitus with renal complication 01/18/2024 Assessment & Plan (04/09/2024 1:54 PM BINDER FOLDER OPERATOR): Glucose logs reviewed and stable, continue HS lantus and mealtime SSI, will try to DC SSI prior to DC home Assessment & Plan (04/06/2024 8:06 PM BINDER FOLDER OPERATOR): Stable, continue HS lantus and mealtime SSI, [...] 04/11/2023 At risk for amiodarone toxicity with buttermaker continuous churn u se 10/06/2022 Chronic anticoagulation 10/06/2022 Paroxysmal atrial fibrillation 10/06/2022 Assessment & Plan (04/28/2024 2:28 PM BINDER FOLDER OPERATOR): Rate controlled, continue metoprolol, amiodarone, eliquis F/u cardiology dr wiley Assessment & Plan (04/13/2024 12:46 PM BINDER FOLDER OPERATOR): Rate controlled on exam; continue metoprolol, amiodarone, Eliquis ; no recent falls Assessment & Plan (04/06/2024 8:06 PM BINDER FOLDER OPERATOR): Rate controlled; continue metoprolol, amiodarone, Eliquis Assessment & Plan (03/31/2024 2:29 PM BINDER FOLDER OPERATOR): Rate controlled on metoprolol, amiodarone; continue b.i.d. Eliquis Assessment & Plan (03/20/2024 8:09 PM BINDER FOLDER OPERATOR): Stable on metoprolol, amiodarone and eliquis, conitnue [...] 10/06/2022 Assessment & Plan (04/28/2024 2:26 PM BINDER FOLDER OPERATOR): Continue treatments outpatient MWF, epogen on HD days, f/u with nephrology Assessment & Plan (04/09/2024 1:54 PM BINDER FOLDER OPERATOR): Tolerating HD MWF, at times using p.r.n. lorazepam with HD treatment, anxiety during access. Monitor electrolytes and weight Continue Epogen Assessment & Plan (04/06/2024 8:08 PM BINDER FOLDER OPERATOR): Continue HD MWF, p.r.n. lorazepam with HD treatment. Monitor electrolytes and weight Continue Epogen Assessment & Plan (03/31/2024 2:26 PM BINDER FOLDER OPERATOR): Continue HD MWF, continues to use p.r.n. lorazepam with HD treatments; daughter states this is helping,. Monitor electrolytes and weight Continue Epogen Assessment & Plan (03/20/2024 8:08 PM BINDER FOLDER OPERATOR): Continue HD MWF, continue to monitor electrolytes and weight, may use p.r.n. lorazepam with HD treatments; no reports of recent agitation with treatments Assessment & Plan (03/15/2024 10:52 AM BINDER FOLDER OPERATOR): Continue HD MWF, continue to monitor electrolytes [...] 3:59 PM CDT): Receiving treatments MWF at [facility], intermittent anxiety, increase zyprexa to daily, may [...] 5:55 PM CDT): Continue treatments MWF at [facility], TID calcium acetate, nephrology following, nepro tube feeds ordered, starting on jevity on admission due to no nepro available Assessment & Plan (01/18/2024 7:41 AM CDT): Continue with dialysis 3 times a week. Continue calcium acetate. Labs with dialysis. Preoperative cardiovascular examination 09/20/19 22 Chronic heart failure with preserved ejection fr action 07/02/2019 Assessment & Plan (04/28/2024 2:26 PM BINDER FOLDER OPERATOR): Stable, continue metoprolol, monitor weights with HD Assessment & Plan (03/20/2024 8:08 PM BINDER FOLDER OPERATOR): Stable on exam, continue metoprolol, monitor I/O, [...] 02/04 Assessment & Plan (04/06/2024 8:06 PM BINDER FOLDER OPERATOR): Weight is stable since rehab admission, continue exercise as tolerated, RD following Assessment & Plan (03/20/2024 8:09 PM BINDER FOLDER OPERATOR): Mobility is improving, recently stopped TF and [...] 02/04 Assessment & Plan (04/13/2024 12:48 PM BINDER FOLDER OPERATOR): Stable/compensated, continue HD treatments, weekly weights, metoprolol, statin amio, eliquis Assessment & Plan (03/20/2024 8:08 PM BINDER FOLDER OPERATOR): Stable on metoprolol and amiodarone, continue HD [...] 2 diabetes mellitus ([facility]) 05/20/2013 Overview (08/11/2016): DMII WO CMP UNCNTRLD Assessment & Plan (04/13/2024 12:48 PM BINDER FOLDER OPERATOR): Well controlled on lantus 18 units hs with mealtime SSI, continue accuchecks ac and hs Assessment & Plan (03/15/2024 10:54 AM BINDER FOLDER OPERATOR): Glucose logs reviewed continue lantus 18 units [...] NOS Assessment & Plan (04/28/2024 2:28 PM BINDER FOLDER OPERATOR): Continue Lantus 18 units HS with mealtime SSI and daughter will assist with med administration Bp stable on metoprolol, monitor for BP goal ,140/<90 Continue accuchecks ac and hs Assessment & Plan (03/31/2024 2:28 PM BINDER FOLDER OPERATOR): Continue Lantus 18 units HS with mealtime SSI, glucose 236 this a.m., evening glucose 170, continue diabetic diet. BP stable on metoprolol Assessment & Plan (03/15/2024 10:53 AM BINDER FOLDER OPERATOR): BP stable on metoprolol 50mg daily, continue [...] NOS Assessment & Plan (04/13/2024 12:51 PM BINDER FOLDER OPERATOR): Subclinical hypothyroidism with TSH trending up to 92, encourage appropriate administration of medication in early a.m. on empty stomach, Synthroid increased to 200 mcg daily at previous visit with plan to repeat ths in 6 weeks, T3 and T4 normal Assessment & Plan (03/31/2024 2:30 PM BINDER FOLDER OPERATOR): Subclinical hypothyroidism with TSH trending up to 92, encourage appropriate administration of medication in early a.m. on empty stomach, Synthroid increased to 200 mcg daily Assessment & Plan (03/20/2024 8:09 PM BINDER FOLDER OPERATOR): Inpatient workup with Tsh elevated with normal t4, ensure medication administration appropriate early am on empty stomach; repeat TSH this week Assessment & Plan (03/15/2024 10:54 AM BINDER FOLDER OPERATOR): Inpatient workup with Tsh elevated with normal [...] (01/18/2024 7:41 AM CDT): Stable. Continue Synthroid. Dupuytren's contracture 08/03/2011 RAINA (obstructive sleep apnea) Assessment & Plan (01/18/2024 5:52 PM CDT): Non compliant with cpap at home with multiple risk factors, contraindicated at this time given condition and enteral feeds Resolved Problems Problem Noted Date Diagnosed Date Resolved Date Aspiration pneumonia 01/18/2024 024 Assessment & Plan (01/18/2024 5:54 PM CDT): Stable on room air to complete PO abx, PIT HAND to follow, DC on prn duonebs, likely could DC Urinary tract infection without hematuria 05/11/2021 02/01/2024 Hyperlipidemia 04/22/2012 09/19/2021 Overview (08/10/2016): HYPERLIPIDEMIA NEC/NOS Encounters Date Type Department Care Team Description 07/01/2024 9:30 AM BINDER FOLDER OPERATOR Office Visit [facility] Cardiology [address] [place] [address] Uriel Gillette MD Paroxysmal atrial fibrillation (HCC) (Primary Dx); Need for lipid screening 06/03/2024 Telephone [facility] Cardiology [address] [place] [address] Uriel Gillette MD 05/05/2024 Telephone [facility] Post Acute Care [address] [address] Jenny Montano MA SNF Outreach 04/22/2024 NH/SNF Visit [facility] Post Acute Care of [address] [address] Maggi Murillo NP 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 (HCC) (Primary Dx); Anemia of renal disease; Centrilobular emphysema (HCC); Chronic heart failure with preserved ejection fraction (HCC); Hypertension associated with diabetes (HCC); ESRD on hemodialysis (HCC); S/P gastrostomy tube (G tube) placement, follow-up exam; Paroxysmal atrial fibrillation (HCC) from Last 3 Months Immunizations Immunization Administration Dates Next Due Influenza, Unspecified 02/04/2021 Surgical History Surgery Date Site/Laterality Comments CHOLECYSTECTOMY Cholecystectomy ENTERIC TUBE INJECTION 01/19/2024 N/A Medical History Medical History Date Comments Hx Other Medical 2006 Thyroidectomy Asthma Asthma Type 2 diabetes mellitus (HCC) D iabetes type 2 Disorder of thyroid Thyroid dise ase Hypertension Hypertension Hx Other Medical Diabetes Type I I Hypothyroidism Hypothyroidism Hx Other Medical Obesity, Morbid Hx Other Medical Back Pain Hx Other Medical 2004 DVT: RLE Cerebrovascular accident (CVA) (HCC) Stroke Hx Other Medical claustrophobic; Comments: PKJ 01/07/2014 - Hx Other Medical Claustrophobic; Comments: PARISI 11/04/2013 - Hx Other Medical sicatic; Commen ts: TAB 03/30/2014 - Family History Medical History Relation Name Comments Heart disease Brother Heart disease; Heart disease Father Heart disease; Stroke Mother Stroke; Relation Name Status Comments Brother Father Mother Social History Tobacco Use Types Packs/Day Years Used Date Smoking Tobacco: Former Smokeless Tobacco: Never Tobacco Cessation:Counseling Given: Yes Alcohol Use Standard Drinks/Week Comments No 0 (1 standard drink = 0.6 oz pur e alcohol) [facility] Utilities Answer Date Recorded In the past 12 months has rollApp, gas, oil, or water [employer] threatened to shut off services in your [...] often do you attend chur ch or quaker services? Never 02/26/2024 Do you belong to any clubs o r organizations such as denominational groups, unions, fraternal or athletic groups, or [...] place to sleep or slept in a mcfp (including now)? No 05/13/2021 Housing Stability Vital Sign Answer Yonathan e Recorded In the last 12 months, was t here a time when you were not able to pay the mortgage or rent on time? No 02/26/2024 In the past 12 months, how m any times have you moved where you were living? 0 02/26/2024 At any time in the past 12 m [facility], were you homeless or living in a mcfp (including now)? No 02/26/2024 Personal Safety Answer Date Recorded Have you ever been in or are you currently in a harmful physical or emotional relationship or is someone making you feel afraid or unsafe? Denies 02/25/2024 Comments No Sex and Gender Information Value Date Recorded Sex Assigned at Not on file Legal Sex Female 10:22 AM BINDER FOLDER OPERATOR Gender Identity Not on file Sexual Orientation Not on file Obstetrics History Last Filed Vital Signs Vital Sign Reading Time Taken Comments Blood Pressure 120/66 07/01/2024 9:38 AM BINDER FOLDER OPERATOR Pulse 55 07/01/2024 9:38 AM BINDER FOLDER OPERATOR Temperature 36.5 C (97.7 F) 03/03/2024 11:40 AM CDT Respiratory Rate 22 03/05/2024 8:31 AM CDT Oxygen Saturation 97% 07/01/2024 9:38 AM BINDER FOLDER OPERATOR Inhaled Oxygen Concentration - - Weight 89.7 kg (197 lb 11.2 oz) 07/01/2024 9:38 AM BINDER FOLDER OPERATOR Height 162.6 cm (5' 4 ) 07/01/2024 9:38 AM BINDER FOLDER OPERATOR Body Mass Index 33.94 07/01/2024 9:38 AM BINDER FOLDER OPERATOR Plan of Treatment Health Maintenance Due Date Last Done Comments Albumin Creatinine Ratio, Urine 1948 Colon Cancer Screening-Colonoscopy 1948 Osteoporosis Screening-Bone Density Scan 1948 Dilated Eye Exam 1948 Foot Exam 1948 DTaP/Tdap/Td Vaccine (1 - Tdap) 12/27/1959 Zoster Vaccine (1 of 2) 1998 Well Visit 65+ 2013 Pneumococcal vaccine 65+ (2 of 2 - PPSV23) 03/02/2016 01/06/2016 Depression Screening 05/10/2022 05/10/2021 Influenza Vaccine (#1) 2024 , 02/04/2021, 02/17/2018, Additional history exists Hemoglobin A1C 08/27/2024 02/27/2024, 09/2021, 10/25/2018, Additional history exists Fall Risk Assessment 03/03/2025 03/03/2024, 09/20/19 22 eGFR 03/03/2025 03/03/2024, 02/05, 02/27/2024, Additional history exists Lipid Panel 07/01/2025 07/01/2024, 06/2022, 05/11/2021, Additional history exists Hepatitis C Screening Completed 05/08/2022 Hepatitis B Screening Completed 02/26/2024 Procedures Procedure Name Priority Date/Time Associated Diagnosis Comments POCT LIPID PANEL Routine 07/01/2024 9:57 AM BINDER FOLDER OPERATOR Need for lipid screening EGFR Routine 03/03/2024 6:45 AM CDT HEMOGLOBIN A1C Routine 02/27/2024 5:59 AM CDT HEPATITIS PANEL, ACUTE STAT 05/08/2022 3:59 PM BINDER FOLDER OPERATOR from Last 3 Months or Most Recently Relevant to Health Maintenance Results * POCT lipid panel (07/01/2024 9:57 AM BINDER FOLDER OPERATOR) Cholesterol, POC 138 mg/dL Comment:GLU = 176 HDL, POC 17 mg/dL Triglycerides, POC 168 mg/dL LDL Cholesterol POC 88 mg/dL Chol/HDL Ratio, POC 5.2 Non-HDL Cholesterol, POC 121 mg/dL Cholesterol Total, POC 138 mg/dL Capillary blood 07/01/2024 9 :57 AM BINDER FOLDER OPERATOR us Uriel Gillette MD POINT OF CARE [...] 6:45 AM CDT 03/03/2024 6:51 AM CDT Ty Reyes MD LAB BLOOD ORDERABLES Final Resu lt [facility] [address] [facility] [address] Department of Laboratories [place], [place] [id number] * (ABNORMAL) Hemoglobin A1c (02/27/2024 5:59 AM CDT) Hgb A1C 7.5(H) 4.0 - 5.6 % Estimated Average Glucose 169 mg/dL [facility] Comment: The ADA recommends reporting an estimated Average Glucose (eAG) with all Hemoglobin A1c results using the equation derived from a study of 507 normal and diabetic adults. Minority populations were underrepresented and children were not included. (Diabetes Care 31:3819-1889, 2008). The eAG is not equivalent to a fasting glucose. Blood 02/27/2024 5:59 AM CDT 02/27/2024 7:11 AM CDT Asif Delgadillo MD LAB BLOOD ORDERABLES Final Re sult Performing Organization Address City/[facility]/ZIP Co de Phone Number [facility] [address] [place] [address] * Hepatitis panel, acute (05/08/2022 3:59 PM BINDER FOLDER OPERATOR) Hep A IgM Nonreactive Nonreactive [facility] Comment: Interpretive Data: If Hep A IgM Ab is reported as Equivocal, a new sample should be drawn in two weeks for testing. Current interpretive data was last revised on 19. Hep B core IgM Nonreactive Nonreactive [facility] Comment: Interpretive Data If HepB Core IgM Ab is reported as Equivocal, a new sample should be drawn in two weeks for testing. Current interpretive data was last revised on 19. Hep C Ab Nonreactive Nonreactive [facility] Comment: Interpretive Data Nonreactive: Antibodies to HCV [...] last revised on 2019. HepBsAg Nonreactive Nonreactive [facility] Blood 05/08/2022 3:59 PM BINDER FOLDER OPERATOR 05/08/2022 3:59 PM BINDER FOLDER OPERATOR us Mellissa Garcia DO LAB MICROBIOLOGY - GENERAL ORD ERABLES Final Result [facility] [address] Department [place] [address] from Last 3 Months or Most Recently Relevant to Health Maintenance Insurance [facility] MEDICARE [employer] CROSS MEDICARE SUPPLEMENT Advance Directives For more information, please contact: [phone] Documents on File Type Date Recorded Patient Java Tech Lead Expl anation ADVANCE DIRECTIVE 03/04/2024 10:[address] - Phys Order for PT Preferences * Full Code (Latest Code Status on File) Date Activated Date Inactivated Comments 02/25/2024 5:55 PM 03/03/2024 4:42 PM * Full Code Date Activated Date Inactivated Comments 05/11/2021 3:52 AM 05/14/2021 8:52 PM Care Teams Potato Chip Processing Supervisor Relationship Specialty Start Date End Date Rikki Amezquita MD [address] [address] PCP - General Family Medicine 07/01/24 Mona Currie MD PhD Medical Oncologist/Hair Designer Medical Oncology 01/07/21 Sammy Shepard MD Consulting Physician Nephrology 05/14/21
--- OUTSIDE RECORDS SUMMARY | 2024-07-16 17:44 | XMS_ITS | Continuity of Care Document ---
Author Organization [facility] [facility] Address [address] [facility] [address] [place] [id number] Phone Care Team Providers Care Technician Name Role Phone Mohsen Peña Unavailable Unavailable [...] Diagnoses Date Provider Providers Copied on Encounter [facility], [id number] [place] [address] [address], [place], [place], [address], [place] tel:[phone] [facility] No Information 1-201 0 Casey Connolly. [address] [place], [address], [place]. tel:[phone] Referring Provider: Mohsen Merlos, [address] [place], [address]. tel:[phone] [facility], [address], [place], [place], [address], [place] tel:[phone] [facility] No Information 8-201 0 Casey Connolly. [address] [place], [address], [place]. tel:[phone] Referring Provider: Mohsen Merlos, [address] [place], [address]. tel:[phone] [facility], [address] [place] [address] [address], [place], [place], [address], [place] tel:[phone] [facility] No Information 4-201 0 Casey Connolly. [address] [place], [address], [place]. tel:[phone] Referring Provider: Mohsen Merlos, [address] [place], [address]. tel:[phone] [facility], [address], [place], [place], [address], [place] tel:[phone] [facility] No Information September-0 3-201 0 Casey Connolly. [address] [place], [address], [place]. tel:[phone] Referring Provider: Mohsen Merlos, [address] [place], [address]. tel:[phone] [facility], [address] [place] [address] [address], [place], [place], [address], [place] tel:[phone] [facility] No Information Jul-0 1-201 0 Casey Connolly. [address] [place], [address], [place]. tel:[phone] Referring Provider: Mohsen Merlos, [address] [place], [address]. tel:[phone] [facility], [address], [place], [place], [address], [place] tel:[phone] [facility] No Information 5-201 0 Casey Connolly. [address] [place], [address], [place]. tel:[phone] Referring Provider: Mohsen Merlos, [address] [place], [place], [facility]. tel:[phone] [facility], [address] [place] [address] [address], [place], [place], [address], [place] tel:[phone] [facility] No Information Sep-1 4-200 9 Casey Connolly. [address] [place], [address], [place]. tel:[phone] Referring Provider: Mohsen Merlos, [address] [place], [address]. tel:[phone] [facility], [address], [place], [place], [address], [place] tel:[phone] [facility] No Information Aug-3 1-200 9 Casey Connolly. [address] [place], [address], [place]. tel:[phone] [facility], [address], [place], [place], [address], [place] tel:[phone] [facility] No Information Aug-2 7-200 9 Casey Connolly. [address] [place], [address], [place]. tel:[phone] [facility], [address], [place], [place], [address], [place] tel:[phone] [facility] No Information 9 Casey Connolly. [address] [place], [address], [place]. tel:[phone] Referring Provider: Mohsen Merlos, [address] [place], [address]. tel:[phone] [facility], [address], [place], [place], [address], [place] tel:[phone] [facility] No Information 9 Casey Connolly. [address] [place], [address], [place]. tel:[phone] Referring Provider: Nataly Summers, [address], [place], [address]. tel:[phone] [facility], [address], [place], [place], [address], [place] tel:[phone] [facility] No Information 0 200 9 Sheri Ingram. [address], [place], [address], [place]. tel:[phone] [facility], [address], [place], [place], [address], [place] tel:[phone] [facility] No Information 8 Sheri Rojas [address] , [address], [place], [address], [place]. tel:[phone] [facility], [address], [place], [place], [address], [place] tel:[phone] [facility] [place] [facility] No Information Nov-0 8-200 7 Sheri Noblen. [address], [place], [address], [place]. tel:[phone] [facility], [address], [place], [place], [address], [place] tel:[phone] [facility] No Information Oct-2 5-200 7 Casey Connolly. [address] [place], [address], [place]. tel:[phone] Referring Provider: Mohsen Merlos, [address] [place], [address]. tel:[phone] [facility], [address], [place], [place], [address], [place] tel:[phone] [facility] No Information Sep-2 7-200 7 Casey Connolly. [address] [place], [address], [place]. tel:[phone] [facility], [address], [place], [place], [address], [place] tel:[phone] [facility] No Information Sep-2 4-200 7 Casey Connolly. [address] [place], [address], [place]. tel:[phone] [facility], [address], [place], [place], [address], [place] tel:[phone] [facility] No Information Sep-1 7-200 7 Casey Connolly. [address] [place], [address], [place]. tel:[phone] [facility], [address], [place], [place], [address], [place] tel:[phone] [facility] No Information Sep-1 3-200 7 Casey Connolly. [address] [place], [address], [place]. tel:[phone] Referring Provider: Nataly Summers, [address], [place], [place], [facility]. tel:[phone] [facility], [address], [place], [place], [address], [place] tel:[phone] [facility] No Information Dec- 0-200 7 Sheri Rojas [address], [place], [facility], [place]. tel:[phone] [facility], [address], [place], [place], [address], [place] tel:[phone] [facility] No Information Nov-3 0-200 7 Casey Connolly. [address] [place], [facility], [place]. tel:[phone] [facility], [address], [place], [place], [address], [place] tel:[phone] [facility] No Information Nov-2 0-200 7 Sheri Rojas [address], [place], [facility], [place]. tel:[phone] [facility], [address], [place], [place], [address], [place] tel:[phone] [facility] No Information 2-200 7 Sheri Rojas [address], [place], [facility], [place]. tel:[phone] [facility], [address], [place], [place], [address], [place] tel:[phone] [facility] No Information Nov-1 1-200 7 Sheri Rojas [address], [place], [facility], [place]. tel:[phone] [facility], [address], [place], [place], [address], [place] tel:[phone] [facility] No Information Sam-2 2-200 7 Sheri Ingram. [address], [place], [facility], [place]. tel:[phone] Referring Provider: Nataly Summers, [address], [place], [facility]. tel:[phone] [facility], [address], [place], [place], [address], [place] tel:[phone] [facility] No Information Oct-1 4-200 7 Sheri Ingram. [address], [place], [facility], [place]. tel:[phone] [facility], [address], [place], [place], [address], [place] tel:[phone] [facility] No Information Oct-1 3-200 7 Sheri Ingram. [address], [place], [facility], [place]. tel:[phone] [facility], [address], [place], [place], [address], [place] tel:[phone] [facility] No Information September-2 5-200 7 Sheri Ingram. [address], [place], [address], [place]. tel:[phone] Referring Provider: Nataly Summers, [address], [place], [facility]. tel:[phone] Office Consultation [facility], [address], [place], [place], [address], [place] tel:[phone] [facility] No Information Jul-2 6-200 7 Casey Connolly. [address] [place], [address], [place]. tel:[phone] Referring Provider: Nataly Summers, [address], [place], [facility]. tel:[phone] [facility], [address] [facility] [address], [place], [place], [address], [place] tel:[phone] [facility] No Information 7 Sheri Ingram. [address], [place], [address], [place]. tel:[phone] Referring Provider: [address], [place], [address]. tel:[phone] Family History Family Member Type Diagnosis Age At Onset No Information Payers Payer name Insurance type Covered green party ID Authoriza brianna(s) Juan [facility] [id number] Social History Type Description Quantity Date Captured [...]
--- OUTSIDE RECORDS SUMMARY | 2024-07-16 17:44 | XMS_ITS | Clinical Summary ---
Author Organization [facility] Address [address] [address] Care Team Providers Care Cut Off Saw Set Up Operator Name Role Phone Rikki Amezquita MD Primary Care Provider [phone] Source Comments [facility],non-owned Affiliates and Associated Physician Practices is amultiple site organization consisting of ambulatory clinics and hospital sitesin [place], [place], [place] and [place]. This disclosure is being madepursuant to the Care Everywhere program and may not contain all information available regarding this patient. Last updated 18.[facility] Allergies Active Allergy Reactions Criticality Noted Date [...] fluticasone propionate (Flonase) 50 MCG/ACT nasal spray [place] 2 (two) sprays into the nose once daily Active LORazepam (Ativan) 0.5 MG tablet 1 (one) tablet by Enteral route every 8 hours as needed Active nystatin (Mycostatin) 028016 UNIT/GM powder Apply 1 Application to affected area 2 times daily Active traZODone (Desyrel) 50 MG tablet Take 0.5 (one-half) tablet by mouth 2 times daily 03/03/2024 Active Active Problems Problem Noted Date Diagnosed Date Encounter regarding vascular access for dialysis for end-stage renal disease 01/22/2023 ESRD (end stage renal disease) 07/24/2022 Family History Medical History Relation Name Comments Other Other neg Relation Name Status Comments Other Social History Tobacco Use Types Packs/Day Years [...] Comments Blood Pressure 172/69 03/25/2024 3:30 PM [employer] Pulse 55 03/25/2024 3:30 PM [employer] Temperature 36.4 C (97.5 F) 03/25/2024 3:03 PM [employer] Respiratory Rate 9 03/25/2024 3:30 PM [employer] Oxygen Saturation 97% 03/25/2024 3:30 PM [employer] Inhaled Oxygen Concentration 40% 04/12/2022 3 :16 PM [employer] Weight 120.2 kg (265 lb) 10/31/2023 10:07 AM CDT Height 157.5 cm (5' 2 ) 10/31/2023 10:07 AM CDT Body Mass Index 48.47 10/31/2023 10:07 AM CDT Plan of Treatment Upcoming Encounters Date Type Department Care Team (Late st Contact Info) Description 08/19/2024 2:45 PM CDT Appointment [facility] Services [address] [place] [address] [place] [address] [facility] [address] [place] [address] [place] [address] [address] [address] [place] [address] Health Maintenance Due Date Last Done Comments BONE DENSITY TESTING 1950 COLOGUARD (AGES 45-75) - COL ON CA SCREENING 1948 COLON MONITORING 1948 COLONOSCOPY - COLON CA SCREENING 1948 CT COLONOGRAPHY - COLON CA SCREENING 1948 Colorectal Cancer Screening 1948 FIT - COLON CA SCREENING 1948 FLEX SIG - COLON CA SCREENING 1948 MAMMOGRAM 1948 MEDICARE AWV 12 MONTHS 1948 HEPATITIS C SCREENING 12/22/1966 DTAP/TDAP/TD VACCINES (1 - Tdap) 12/27/1967 PNEUMOCOCCAL VACCINE 50+ (1 of 2 - PCV) 12/27/1967 HEPATITIS B VACCINE (1 of 3 - Risk Dialysis 4-dose series) 1968 ZOSTER VACCINE (1 of 2) 1998 Respiratory Syncytial Virus (RSV) Vaccine Pt: or over 60 yrs (1 - 1-dose 75+ series) 12/27/2023 COVID-19 VACCINE (2 - 2023-2 5 season) 2024 05/26/2020 INFLUENZA VACCINE (#1) 2024 2, 02/04/2021 DEPRESSION SCREENING 05/07/2024 HIB VACCINE Aged Out No longer eligi ble based on patient's age to complete this topic HPV VACCINE Aged Out No longer eligi ble based on patient's age to complete this topic MENINGOCOCCAL (Group B) VACCINE SHARED DECISION-MAKING Aged Out No longer eligible based on patient's age to complete this topic MENINGOCOCCAL GROUPS A/C/Y/W VACCINE Aged Out No longer eligible b ased on patient's age to complete this topic Advance Directives * Full Code (Latest Code Status on File) Date Activated Date Inactivated Comments 05/14/2022 8:26 AM 05/28/2022 12:06 PM Care Teams Cut Off Saw Set Up Operator Relationship Specialty Start Date End Date Rikki Amezquita MD [address] [place] [address] PCP - General 11/28/21
== END 2024-07-16 17:15 | disposition home or self-care (01) ==
PROVIDERS: Emergency Provider Emergency Medicine; PCP Family Medicine
DX: S00.83XA Contusion of other part of head, initial encounter (principal); I69.920 Aphasia following unspecified cerebrovascular disease; I69.951 Hemiplegia and hemiparesis following unspecified cerebrovascular disease affecting right dominant side; I50.32 Chronic diastolic (congestive) heart failure; I25.10 Atherosclerotic heart disease of native coronary artery without angina pectoris; J44.9 Chronic obstructive pulmonary disease, unspecified; E11.22 Type 2 diabetes mellitus with diabetic chronic kidney disease; N18.6 End stage renal disease; E11.42 Type 2 diabetes mellitus with diabetic polyneuropathy; K21.9 Gastro-esophageal reflux disease without esophagitis; G47.33 Obstructive sleep apnea (adult) (pediatric); F41.1 Generalized anxiety disorder; F32.A Depression, unspecified; Z87.01 Personal history of pneumonia (recurrent); Z86.718 Personal history of other venous thrombosis and embolism; Z87.891 Personal history of nicotine dependence; Z98.49 Cataract extraction status, unspecified eye; Z90.49 Acquired absence of other specified parts of digestive tract; Z79.4 Long term (current) use of insulin; Z79.899 Other long term (current) drug therapy; W19.XXXA Unspecified fall, initial encounter
CPT/HCPCS: 70450; 72125; 99284

== ENCOUNTER 2024-09-01 17:42 | Inpatient (IN) | payer MEDICARE, SELFPAY ==
[2024-09-01] VITALS (8 sets, daily range): BP systolic 133–197; BP diastolic 66–79; PULSE 66–86; RESP 14–20; TEMP 36.6; O2SAT 94–98; BMI 30.4
--- NOTE | ~2024-09-01 | CT_ITS ---
CT pelvis wo con Ordering provider: Bib Damian MD History: . Possible superior pubic ramus fracture on right . Comparison: None. Technique: CT pelvis without oral and IV contrast. . Automated exposure control and iterative recons truction technique were employed. The dose-length product was 569.96 mGy-cm. Findings: BONES: No pelvic fracture or hip dislocation. Sclerotic changes seen in the left pubic bone. Age appr opriate degenerative changes of the visualized lower lumbar spine. The hip joints shows mild to moder ate narrowing suggestive of osteoarthritic changes. The sacroiliac joint spaces are well maintained. SUPERFICIAL SOFT TISSUES: Right inguinal lymph node is seen measuring 1.8 cm. Normal. PELVIC ORGANS: The bladder is normal. VISUALIZED BOWEL AND MESENTERY: Normal. No free air or free fluid. No lymphadenopathy. RETROPERITONEUM: Mild atheromatous disease. IMPRESSION: Sclerotic changes in the left pubic bone and superior pubic ramus which may be due to old fracture. O steomyelitis is less likely. Follow-up and clinical correlation advised. Reviewed, dictated and finalized at location A. IMPRESSION: Sclerotic changes in the left pubic bone and superior pubic ramus which may be due to old fracture. Osteomyelitis is less likely. Follow-up and clinical corre lation advised.
--- NOTE | ~2024-09-01 | XR_ITS ---
EXAMINATION: XR chest 1V Exam Date/Time: 09/01/2024 18:32 CDT HISTORY: ams Comparison: 01/06/2024. RESULT: Lines, tubes, and devices: None. Lungs and pleura: Lordotic positioning with rotation. Streaky left basilar opacities. Congested appe aring pulmonary vessels. No focal consolidation, pleural effusion, or pneumothorax. Cardiomediastinal silhouette: Stable. Mitral annulus calcification. Other: No acute osseous or upper abdominal finding. IMPRESSION: Pulmonary vascular congestion. Subsegmental left basilar atelectasis/consolidation. Reviewed, dictated and finalized at location K. IMPRESSION: Pulmonary vascular congestion. Subsegmental left basilar atelectasis/consolidat ion.
--- NOTE | ~2024-09-01 | XR_ITS ---
XR hip RT min 2V, XR hip LT min 2V Ordering provider: Fabio Escamilla MD History: . leg pain . Comparison: None. FINDINGS: BONES: Fracture of the right superior pubic ramus is noted. Possibility of fracture of the right infe rior pubic ramus cannot be excluded. No other definite fractures seen. HIP JOINT SPACES: Severely narrowed. SACROILIAC JOINT SPACES/LUMBAR SPINE: The sacroiliac joint spaces are normal. Mild degenerative kruger es of the visualized lower lumbar spine. PUBIC SYMPHYSIS: Pubic symphysitis. SOFT TISSUES: Vascular calcifications. IMPRESSION: Fracture of the right superior pubic ramus. Possibility of fracture of the right inferior pubic ramus is not excluded. XR hip RT min 2V, XR hip LT min 2V Ordering provider: Fabio Escamilla MD History: . leg pain . Comparison: None. FINDINGS: BONES: Sclerotic changes with Highly suggestive fracture in the left pubic superior pubic ramus is no mckenzie. Fracture of the left inferior pubic ramus is not excluded. HIP JOINT SPACES: Severe narrowing suggestive of osteoarthritic changes. SACROILIAC JOINT SPACES/LUMBAR SPINE: The sacroiliac joint spaces are normal. Mild degenerative kruger es of the visualized lower lumbar spine. PUBIC SYMPHYSIS: Pubic symphysitis. SOFT TISSUES: Normal. IMPRESSION: Highly suggestive fracture of the left superior pubic ramus. Fracture of the left inferior pubic lois s cannot be excluded. CT of the pelvis is advised for better evaluation. Reviewed, dictated and finalized at location A. IMPRESSION: Fracture of the right superior pubic ramus. Possibility of fracture of the righ t inferior pubic ramus is not excluded. XR hip RT min 2V, XR hip LT min 2V Ordering provider: Fabio Escamilla MD History: . leg pain . Comparison: None. FINDINGS: BONES: Sclerotic changes with Highly suggestive fracture in the left pubic supe rior pubic ramus is noted. Fracture of the left inferior pubic ramus is not exc luded. HIP JOINT SPACES: Severe narrowing suggestive of osteoarthritic changes. SACROILIAC JOINT SPACES/LUMBAR SPINE: The sacroiliac joint spaces are normal. M ild degenerative changes of the visualized lower lumbar spine. PUBIC SYMPHYSIS: Pubic symphysitis. SOFT TISSUES: Normal. IMPRESSION: Highly suggestive fracture of the left superior pubic ramus. Fracture of the le ft inferior pubic ramus cannot be excluded. CT of the pelvis is advised for better evaluation. IMPRESSION: Fracture of the right superior pubic ramus. Possibility of fracture of the righ t inferior pubic ramus is not excluded. XR hip RT min 2V, XR hip LT min 2V Ordering provider: Fabio Escamilla MD History: . leg pain . Comparison: None. FINDINGS: BONES: Sclerotic changes with Highly suggestive fracture in the left pubic supe rior pubic ramus is noted. Fracture of the left inferior pubic ramus is not exc luded. HIP JOINT SPACES: Severe narrowing suggestive of osteoarthritic changes. SACROILIAC JOINT SPACES/LUMBAR SPINE: The sacroiliac joint spaces are normal. M ild degenerative changes of the visualized lower lumbar spine. PUBIC SYMPHYSIS: Pubic symphysitis. SOFT TISSUES: Normal.
--- NOTE | ~2024-09-01 | CT_ITS ---
EXAMINATION: CT brain wo con DATE: 09/01/2024 18:34 INDICATION: ams, hx of previous cva . TECHNIQUE: Computed tomography (CT) of the head was performed without intravenous contrast. The mA wa s adjusted according to patient size. Iterative reconstruction technique was employed. The dose-lengt h product was 747.47 mGy-cm. COMPARISON: 07/16/2024. FINDINGS: No acute intracranial hemorrhage or extra-axial fluid collection. No hydrocephalus, mass, or herniation. No acute ischemic infarct. Unremarkable dural venous sinus attenuation. No acute osseous abnormality. Bilateral mastoid fluid, inferior frontal and ethmoid mucosal thickening, the remaining aerated space s are clear. Moderate atrophy and chronic white matter change. Atherosclerotic intracranial calcification. Bilater al lens replacements. Large area of encephalomalacia in the left MCA territory. 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 IMPRESSION: No acute intracranial process. Reviewed, dictated and finalized at location K.
--- NOTE | ~2024-09-01 | XR_ITS ---
EXAMINATION: XR thoracic spine 2V, XR lumbar spine min 4V DATE: 09/04/2024 15:03 INDICATION: Nonlocalized back pain TECHNIQUE: 1. AP and lateral views of the thoracic spine were obtained. 2. AP, lateral and left and right oblique views of the lumbar spine were obtained. COMPARISON: None. FINDINGS: Thoracic spine: Alignment is normal. Chronic minimal anterior wedging at T10-T12. There is multilevel mild and modera te thoracic disc height loss with small degenerative endplate osteophytes. Lungs are clear with no pl eural effusion or pneumothorax. Heart size is normal. Cholecystectomy clips in the right upper quadra nt. Lumbar spine: 15 degrees lumbar dextrocurvature. Vertebral body heights are normal. The L5-S1 disc space is poorly profiled on the provided projections demonstrate mild disc height loss on the immediately subsequent CT of the pelvis. Severe disc height loss at L3-L4 and L4-L5. Moderate left-sided predominant disc he ight loss at L2-L3 and mild disc height loss at the more cephalad lumbar and lower thoracic levels. S evere lower lumbar facet osteoarthritis. No pars interarticularis defects. Moderate bilateral sacroil iac osteoarthritis. IMPRESSION: 1. Moderate thoracic spondylosis. 2. 15 degrees lumbar dextrocurvature with severe lower lumbar predominant spondylosis. Reviewed, dictated and finalized at location B. IMPRESSION: 1. Moderate thoracic spondylosis. 2. 15 degrees lumbar dextrocurvature with severe lower lumbar predominant spond ylosis.
--- NOTE | 2024-09-01 17:54 | ECG_ITS ---
Test Date: 2024-09-01 19:18:34 Measurements Intervals [place] Rate: 67 P: 14 MT: 156 QRS: 41 QRSD: 110 T: 0 QT: 493 QTc: 524 Interpretive Statements SINUS RHYTHM INTRAVENTRICULAR CONDUCTION DELAY DELAYED PRECORDIAL R/S TRANSITION BORDERLINE ST-T WAVE ABNORMALITY- INF/LAT LEADS BASELINE ARTIFACT- I, II, III, AVR, AVL, AVF, V4-V5 PROLONGED QT INTERVAL ABNORMAL ECG Compared to ECG 12/25/2023 07:44:20 Prolonged QT interval now present Electronically Signed On 09-01-2024 19:51:37 CDT by Brannon Hatfield D.O.
--- NOTE | 2024-09-01 18:08 | ED_ITS ---
HPI - Altered Mental Status General Chief Complaint: Altered Mental Status <Tina Echols PA-C - Last Filed: 09/01/24 23:27> Stated Complaint: altered <KARIME Woods Last Filed: 09/01/24 23:27> Time Seen by Provider: 09/01/24 17:54 <Tina Echols PA-C - Last Filed: 09/01/24 23:27> Source: family, EMS and old records reviewed <KARIME Woods Last Filed: 09/01/24 23:27> Mode of arrival: EMS <KARIME Woods Last Filed: 09/01/24 23:27> Limitations: altered mental status and clinical condition <KARIME Woods Last Filed: 09/01/24 23:27> History of Present Illness HPI narrative: Patient is a 73-year-old female who presents the ED via EMS from home, with report of altered mental status. Patient has history of COPD, DM, HTN, ESRD on dialysis MWF, CAD, CHF, AFib on eliquis, hypothyroidism, previous CVA w/ residual R sided deficits and expressive aphasia. Per family/EMS, patient is alert oriented x1 at baseline. She is unable to provide any information due to aphasia. reportedly called EMS today due to altered mental status. Patient did receive dialysis treatment today. at bedside reports patient was increasingly confused and weak after dialysis today. Would not use her walker, at risk for falling, refusing help from . <KARIME Woods Last Filed: 09/01/24 23:27> Related Data Home Medications: Home Medications ?Medication ?Instructions ?Recorded ?Confirmed ?Last Taken ?Type fluticasone propionate 50 2 spray intranasal DAILY 03/19/19 07/04/24 06/25/23 History mcg/actuation nasal spray,suspension insulin aspart U-100 100 unit/mL See Rx Instructions .Route .COMPLEX 05/20/24 07/04/24 Unknown History (3 mL) subcutaneous pen (Novolog FlexPen U-100 Insulin aspart) lorazepam 0.5 mg tablet (Ativan) 0.5 mg PO DAILY PRN 07/04/24 07/04/24 Unknown History <Tina Echols PA-C - Last Filed: 09/01/24 23:27> Allergies/Adverse Reactions: Allergies Allergy/AdvReac Type Severity Reaction Status Date / Time nickel Allergy Intermediate hives and Verified 06/12/24 13:35 itchy rash Sulfa (Sulfonamide Allergy Intermediate Urticaria Verified 06/12/24 13:35 Antibiotics) and hives Calcium Channel Blocking AdvReac Intermediate STATES Verified 06/12/24 13:35 Agents-Dih CANNOT TAKE SINCE SHE HAS ASTHMA diphenhydramine AdvReac Intermediate restless Verified 06/12/24 13:35 legs nifedipine AdvReac Intermediate palpitation Verified 06/12/24 13:35 s [id number]-SQF-[id number] Reductase AdvReac Intermediate muscle Verified 06/12/24 13:35 Inhibitor (Krphcns-Ofo-Hyd cramps Reductase Inhibitor) <Tina Echols PA-C - Last Filed: 09/01/24 23:27> Review of Systems 2 Review of Systems: ROS unobtainable: Yes unobtainable due to mental status <Tina Echols PA-C - Last Filed: 09/01/24 23:27> [facility] Past Medical History Medical History: Medical History Asthma-COPD overlap syndrome Aspiration into airway Left-sided cerebrovascular accident (CVA) ESRD on hemodialysis Chronic anticoagulation Obstructive sleep apnea Paroxysmal atrial fibrillation Hypothyroidism Insulin dependent type 2 diabetes mellitus Cerebrovascular accident Generalized anxiety disorder Deep venous thrombosis Chronic obstructive pulmonary disease Community acquired pneumonia due to Haemophilus influenzae 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 Chronic diastolic (congestive) heart failure Coronary artery disease involving unga heart without angina pectoris Depression GERD without esophagitis Peripheral polyneuropathy <Tina Echols PA-C - Last Filed: 09/01/24 23:27> Surgical History Surgical History: Surgical History History of tracheostomy History of cataract extraction History of tonsillectomy History of cholecystectomy History of gastrostomy tube placement and removal <Tina Echols PA-C - Last Filed: 09/01/24 23:27> Family History Family History: Family History Father Hypertension Family history of coronary artery disease Sibling Hypertension Family history of coronary artery disease Mother Cerebrovascular accident Other Asthma Depression Family history of Alzheimer's disease Family history of arthritis Family history of cardiovascular disease Family history of lymphoma Family history of obesity Family history of seizure disorder <Tina Echols PA-C - Last Filed: 09/01/24 23:27> Social History Social History: Social History Social History: Surrogate medical decision maker: Anjum (spouse) or Gwen (daughter) Kyra. Code status: Full code. Smoking packs per day: 2 Smoking cigarettes per day: 40.0 Years smoked: 30 Smoking pack-years: 60.00 Smoking status: Former smoker Tobacco type: cigarettes Second hand tobacco smoke exposure: No Smoking end date: 05/07/89 Alcohol intake: unknown Alcohol use details: special occasions Substance use: former Substance use type: marijuana Last use: 01/05/23 Do You Feel Safe in your Home?: Yes Lack of Transportation: YES Lack of Food: Never True Current Housing: I Have Housing Concerned About Future Housing: No Difficulty Paying Gas/Electric Bills: No Difficulty Paying for Meds: No Currently Unemployed: No Education: High School Diploma/GED Difficulty w/ Childcare or Family Care: No Living arrangements: with family Occupation/Education: retired Spiritual care concerns: No <Tina Echols PA-C - Last Filed: 09/01/24 23:27> Exam 2 Narrative: GENERAL: Chronically ill-appearing, non-toxic, in no acute distress. HEAD: Normocephalic, atraumatic. EYES: PERRL/EOMI RESPIRATORY: Airway patent, respirations nonlabored. Clear to auscultation bilaterally, no rales, rhonchi, wheezing. CARDIOVASCULAR: Regular rate and rhythm without murmurs, rubs, or gallops. ABDOMINAL: Soft, nontender, nondistended. Normoactive BS. MUSCULOSKELETAL: No gross deformities. SKIN: Warm, dry, normal color. NEURO: Alert, expressive aphasia, speech is clear but not appropriate to conversation. Follows commands. No ataxic movements. Slight R sided weakness compared to L but able to move all extremities. No appreciable facial droop. PSYCHIATRIC: Appropriate mood and affect. Normal interaction. <Tina Echols PA-C - Last Filed: 09/01/24 23:27> Course NUTRITION CONSULTANT/PA Physician Supervision For this patient encounter, I reviewed the NUTRITION CONSULTANT or PA documentation, treatment plan, and medical decision making; and I had [id number] time with this patient. <Arthur Douglass MD - Last Filed: 09/01/24 22:20> Vital Signs Vital signs: Vital Signs Pulse Oximetry 98 09/01/24 18:07 Oxygen Delivery Room Air 09/01/24 18:07 Temperature 97.8 F 09/01/24 18:08 Pulse Rate 86 09/01/24 22:51 Respiratory Rate 17 09/01/24 20:45 Blood Pressure 163/77 H 09/01/24 22:51 Pulse Oximetry 97 09/01/24 20:45 Oxygen Delivery Room Air 09/01/24 18:07 <Tina Echols PA-C - Last Filed: 09/01/24 23:27> Vital Signs Pulse Oximetry 98 09/01/24 18:07 Oxygen Delivery Room Air 09/01/24 18:07 Temperature 97.8 F 09/01/24 18:08 Pulse Rate 86 09/01/24 22:51 Respiratory Rate 17 09/01/24 20:45 Blood Pressure 163/77 H 09/01/24 22:51 Pulse Oximetry 97 09/01/24 20:45 Oxygen Delivery Room Air 09/01/24 18:07 <Arthur Douglass MD - Last Filed: 09/01/24 22:20> MDM - Altered Mental Status MDM Narrative Medical decision making narrative: Patient presented to ED from home with report of altered mental status. History of multiple previous medical problems. History of CVA with residual right-sided weakness, expressive aphasia. Patient alert, able to follow commands, but unable to provide any information due to aphasia. I do not appreciate any new focal deficits on exam. Vital signs are stable. Patient in no acute distress. CBC w/o leukocytosis. Stable H&H, consistent with previous records. CMP fairly unremarkable. End-stage renal disease. She patient did receive dialysis treatment today. Blood glucose 368. Lactic acid 2.3. Repeat normalized w/o intervention. Normal LFTs. CK within normal range. Troponin within normal range. EKG with prolonged QT, nonspecific ST changes. TSH elevated to 6.03, free T4 was also elevated. Patient is currently on levothyroxine 175 mcg daily. UA does appear infectious with 3+ leuk esterase, greater than 100 WBC, 4+ urine bacteria. Sent for culture. Previous urine cultures have been sensitive to cephalosporins. Patient started on ceftriaxone in the ED. CT brain is unremarkable. Chest x-ray with some pulmonary vascular congestion. No focal consolidation. Patient does not appear to be in any respiratory distress. No report of recent cough or fevers. No peripheral edema. Discussed lab and imaging findings with patient and . very concerned by how confused and weak patient was today. He does not feel he will be able to take care of her at home. Will admit for continued evaluation, IV antibiotics, possible care coordination consult for rehab? Discussed case with Dr. Jaimes, hospitalist, accepted patient for admission. Add blood cultures and orthostatic vs. Patient and family in agreement with plan and admission. <Tina Echols PA-C - Last Filed: 09/01/24 23:27> Medical Records Attestation: I reviewed the patient's medical records. <Tina Echols PA-C - Last Filed: 09/01/24 23:27> Lab Data Attestation: I reviewed the patient's lab results. <Tina Echols PA-C - Last Filed: 09/01/24 23:27> Result diagrams: 09/01/24 18:21 09/01/24 18:21 <Tina Echols PA-C - Last Filed: 09/01/24 23:27> Labs: Lab Results 09/01/24 09/01/24 Range/Units 18:21 20:47 WBC 7.5 (4.5-10.0) K/mm3 RBC 3.44 L (4.2-5.4) M/mm3 Hgb 10.0 L (12.0-15.0) g/dL Hct 32.6 L (37.0-47.0) % MCV 94.8 (80-100) fl MCH 29.1 (26-34) pg MCHC 30.7 L (32-36) g/dl RDW 14.9 H (11.5-14.5) % Plt Count 296 (150-375) k/mm3 MPV 10.6 H (7.4-10.4) fl Immature Gran % (Auto) 0.3 (0-0.5) % Neut % (Auto) 67.5 (45.5-73.1) % Lymph % (Auto) 15.4 L (18.3-44.2) % Loup % (Auto) 10.1 H (2.6-8.5) % Eos % (Auto) 5.5 H (0-4.4) % Baso % (Auto) 1.2 (0.2-1.2) % Lymph # (Auto) 1.16 (0.9-3.2) K/mm3 Loup # (Auto) 0.8 H (0.1-0.6) K/mm3 Eos # (Auto) 0.4 H (0-0.3) K/mm3 Baso # (Auto) 0.1 (0.0-0.1) K/mm3 Abs Immat Gran (auto) 0.02 (0.00-0.031) K/mm3 Absolute Neuts (auto) 5.1 (1.3-6.7) K/mm3 Absolute Nucleated RBC 0.000 (0.0-0.012) K/mm3 Nucleated RBC % 0.0 (0.0-0.2) % PT 13.7 (11.1-14.7) Seconds INR 1.0 APTT 27.3 (22.3-36.8) Seconds Sodium 136 L (137-145) mmol/L Potassium 3.7 (3.4-5.0) mmol/L Chloride 93 L (98-107) mmol/L Carbon Dioxide 37 H (22-30) mmol/L Anion Gap 6 (4-12) mmol/L BUN 21 H (7-17) mg/dL Creatinine 3.18 H (0.7-1.0) mg/dL Estim Creat Clear Calc Not Reportable Estimated GFR 14 L (59 - ) Glucose 368 H (65-110) mg/dL Lactic Acid 2.3 H 1.6 (0.7-2.0) mmol/L Calcium 8.2 L (8.4-10.2) mg/dL Total Bilirubin 0.5 (0.2-1.3) mg/dL AST 24 (14-36) U/L ALT 14 (6-35) U/L Alkaline Phosphatase 125 (38-126) U/L Total Creatine Kinase 49 (30-135) U/L Troponin I 0.019 (0.000-0.034) ng/mL Total Protein 7.0 (6.3-8.2) g/dL Albumin 3.6 (3.5-5.1) g/dL TSH (Reflex) 6.030 H (0.465-4.68) uIU/mL Free T4 2.95 H (0.78-2.19) ng/dL Urine Color Yellow (Yellow) Urine Appearance Turbid H (Clear) Urine pH 8.5 (5.0-9.0) Ur Specific Valentine 1.011 (1.001-1.035) Urine Protein 3+ H (Negative) mg/dL Urine Glucose (UA) Negative (Negative) mg/dL Urine Ketones Negative (Negative) mg/dL Ur Blood (Man) 1+ H (Negative) Urine Nitrate Negative (Negative) Urine Bilirubin Negative (Negative) Urine Urobilinogen 0.2 (<2.0) mg/dL Add Ur Microanalysis Reviewed Leukocyte Esterase Rfl 3+ H (Negative) ERICK/UL Urine RBC 6-10 H (0-2) /hpf Urine WBC >100 H (0-3) /hpf Ur Squamous Epith Cells None seen (Few) /hpf Urine Bacteria 4+ /hpf Urine Casts 3-5 <Tina Echols PA-C - Last Filed: 09/01/24 23:27> Lab Results 09/01/24 09/01/24 Range/Units 18:21 20:47 WBC 7.5 (4.5-10.0) K/mm3 RBC 3.44 L (4.2-5.4) M/mm3 Hgb 10.0 L (12.0-15.0) g/dL Hct 32.6 L (37.0-47.0) % MCV 94.8 (80-100) fl MCH 29.1 (26-34) pg MCHC 30.7 L (32-36) g/dl RDW 14.9 H (11.5-14.5) % Plt Count 296 (150-375) k/mm3 MPV 10.6 H (7.4-10.4) fl Immature Gran % (Auto) 0.3 (0-0.5) % Neut % (Auto) 67.5 (45.5-73.1) % Lymph % (Auto) 15.4 L (18.3-44.2) % Loup % (Auto) 10.1 H (2.6-8.5) % Eos % (Auto) 5.5 H (0-4.4) % Baso % (Auto) 1.2 (0.2-1.2) % Lymph # (Auto) 1.16 (0.9-3.2) K/mm3 Loup # (Auto) 0.8 H (0.1-0.6) K/mm3 Eos # (Auto) 0.4 H (0-0.3) K/mm3 Baso # (Auto) 0.1 (0.0-0.1) K/mm3 Abs Immat Gran (auto) 0.02 (0.00-0.031) K/mm3 Absolute Neuts (auto) 5.1 (1.3-6.7) K/mm3 Absolute Nucleated RBC 0.000 (0.0-0.012) K/mm3 Nucleated RBC % 0.0 (0.0-0.2) % PT 13.7 (11.1-14.7) Seconds INR 1.0 APTT 27.3 (22.3-36.8) Seconds Sodium 136 L (137-145) mmol/L Potassium 3.7 (3.4-5.0) mmol/L Chloride 93 L (98-107) mmol/L Carbon Dioxide 37 H (22-30) mmol/L Anion Gap 6 (4-12) mmol/L BUN 21 H (7-17) mg/dL Creatinine 3.18 H (0.7-1.0) mg/dL Estim Creat Clear Calc Not Reportable Estimated GFR 14 L (59 - ) Glucose 368 H (65-110) mg/dL Lactic Acid 2.3 H 1.6 (0.7-2.0) mmol/L Calcium 8.2 L (8.4-10.2) mg/dL Total Bilirubin 0.5 (0.2-1.3) mg/dL AST 24 (14-36) U/L ALT 14 (6-35) U/L Alkaline Phosphatase 125 (38-126) U/L Total Creatine Kinase 49 (30-135) U/L Troponin I 0.019 (0.000-0.034) ng/mL Total Protein 7.0 (6.3-8.2) g/dL Albumin 3.6 (3.5-5.1) g/dL TSH (Reflex) 6.030 H (0.465-4.68) uIU/mL Free T4 2.95 H (0.78-2.19) ng/dL Urine Color Yellow (Yellow) Urine Appearance Turbid H (Clear) Urine pH 8.5 (5.0-9.0) Ur Specific Valentine 1.011 (1.001-1.035) Urine Protein 3+ H (Negative) mg/dL Urine Glucose (UA) Negative (Negative) mg/dL Urine Ketones Negative (Negative) mg/dL Ur Blood (Man) 1+ H (Negative) Urine Nitrate Negative (Negative) Urine Bilirubin Negative (Negative) Urine Urobilinogen 0.2 (<2.0) mg/dL Add Ur Microanalysis Reviewed Leukocyte Esterase Rfl 3+ H (Negative) ERICK/UL Urine RBC 6-10 H (0-2) /hpf Urine WBC >100 H (0-3) /hpf Ur Squamous Epith Cells None seen (Few) /hpf Urine Bacteria 4+ /hpf Urine Casts 3-5 <Arthur Douglass MD - Last Filed: 09/01/24 22:20> Imaging Data Attestation: I personally reviewed and interpreted this imaging study as follows: < Tina Echols PA-C - Last Filed: 09/01/24 23:27> Radiologist's impression: ITS Impressions Head CT 09/01/24 18:36 IMPRESSION: No acute intracranial process. Chest X-Ray 09/01/24 19:13 IMPRESSION: Pulmonary vascular congestion. Subsegmental left basilar atelectasis/consolidation. <Tina Echols PA-C - Last Filed: 09/01/24 23:27> ECG Data EKG #1: Attestation: I personally reviewed and interpreted this ECG as follows: <LYNN WoodsC - Last Filed: 09/01/24 23:27> ECG completion date: 09/01/24 <KARIME Woods Last Filed: 09/01/24 23:27> ECG completion time: 19:18 <KARIME Woods Last Filed: 09/01/24 23:27> EKG Interpretation: normal rate (67), sinus rhythm, non-specific ST changes and prolonged QT (qt 493, qtc 524) <Tina Echols PA-C - Last Filed: 09/01/24 23:27> Discharge Plan Discharge Clinical Impression: Elevated TSH, ESRD on hemodialysis, Prolonged QT interval AMS (altered mental status) Qualifiers: Altered mental status type: unspecified Qualified Code(s): R41.82 - Altered mental status, unspecified UTI (urinary tract infection) Qualifiers: Urinary tract infection type: acute cystitis Hematuria presence: without hematuria Qualified Code(s): N30.00 - Acute cystitis without hematuria <Tina Echols PA-C - Last Filed: 09/01/24 23:27> Patient Disposition: Still a Patient <KARIME Woods Last Filed: 09/01/24 23:27> Condition: Stable <KARIME Woods Last Filed: 09/01/24 23:27>
[2024-09-01 18:28] LABS: Basophils Absolute Auto 0.1 K/mm3 (0.0-0.1); Basophils Percent Auto 1.2 % (0.2-1.2); Eosinophils Absolute Auto 0.4 K/mm3 (0-0.3); Eosinophils Percent Auto 5.5 % (0-4.4); Hematocrit 32.6 % (37.0-47.0); Immature Granulocyte Absolute 0.02 K/mm3 (0.00-0.031); Immature Granulocyte Percent A 0.3 % (0-0.5); Lymphocytes Absolute Auto 1.16 K/mm3 (0.9-3.2); Lymphocytes Percent Auto 15.4 % (18.3-44.2); Mean Corpuscular HGB Conc 30.7 g/dl (32-36); Mean Corpuscular Hemoglobin 29.1 pg (26-34); Mean Corpuscular Volume 94.8 fl (80-100); Mean Platelet Volume 10.6 fl (7.4-10.4); Monocytes Absolute Auto 0.8 K/mm3 (0.1-0.6); Monocytes Percent Auto 10.1 % (2.6-8.5); Neutrophils Absolute Auto 5.1 K/mm3 (1.3-6.7); Neutrophils Percent Auto 67.5 % (45.5-73.1); Platelet Count Result 296 k/mm3 (150-375); Red Blood Count 3.44 M/mm3 (4.2-5.4); Red Cell Distribution Width 14.9 % (11.5-14.5); White Blood Count 7.5 K/mm3 (4.5-10.0)
[2024-09-01 18:39] LABS: Prothrombin Time 13.7 Seconds (11.1-14.7)
--- OUTSIDE RECORDS SUMMARY | 2024-09-01 18:39 | XMS_ITS | Continuity of Care Document ---
Author Organization [facility] Address [address] [facility] [address] Mensah [address] [place] [id number] Phone Care Team Providers Care Vending Supervisor Name Role Phone Mohsen Peña Unavailable Unavailable [...] Diagnoses Date Provider Providers Copied on Encounter [facility], [id number] [place] [address] [address], [place], [place], [address], [place] tel:[phone] SEC [facility] No Information 1-201 0 Casey Connolly. [address] [place], [address], [place]. tel:[phone] Referring Provider: Mohsen Merlos, [address] [place], [address]. tel:[phone] [facility], [address], [place], [place], [address], [place] tel:[phone] [facility] No Information 8-201 0 Casey Connolly. [address] [place], [address], [place]. tel:[phone] Referring Provider: Mohsen Merlos, [address] [place], [address]. tel:[phone] [facility], [address] [place] [address] [address], [place], [place], [address], [place] tel:[phone] [facility] No Information 4-201 0 Casey Connolly. [address] [place], [address], [place]. tel:[phone] Referring Provider: Mohsen Merlos, [address] [place], [address]. tel:[phone] [facility], [address], [place], [place], [address], [place] tel:[phone] [facility] No Information September-0 3-201 0 Casey Connolly. [address] [place], [address], [place]. tel:[phone] Referring Provider: Mhosen Merlos, [address] [place], [address]. tel:[phone] [facility], [address] [place] [address] [address], [place], [place], [address], [place] tel:[phone] [facility] No Information Jul-0 1-201 0 Casey Connolly. [address] [place], [address], [place]. tel:[phone] Referring Provider: Mohsen Merlos, [address] [place], [address]. tel:[phone] [facility], [address], [place], [place], [address], [place] tel:[phone] [facility] No Information 5-201 0 Casey Connolly. [address] [place], [address], [place]. tel:[phone] Referring Provider: Mohsen Merlos, [address], [place], [facility]. tel:[phone] [facility], [address] [place] [address] [address], [place], [place], [address], [place] tel:[phone] [facility] No Information Sep-1 4-200 9 Casey Connolly. [address] [place], [address], [place]. tel:[phone] Referring Provider: Mohsen Merlos, [address] [place], [address]. tel:[phone] [facility], [address], [place], [place], [address], [place] tel:[phone] [facility] No Information Aug-3 1-200 9 Casey Connolly. [address] [place], [address], [place]. tel:[phone] [facility], [address], [place], [place], [address], [place] tel:[phone] SEC [facility] No Information Aug-2 7-200 9 Casey Connolly. [address] [place], [address], [place]. tel:[phone] [facility], [address], [place], [place], [address], [place] tel:[phone] [facility] No Information 9 Casey Connolly. [address] [place], [address], [place]. tel:[phone] Referring Provider: Mohsen Merlos, [address] [place], [address]. tel:[phone] Office Consultation [facility], [address], [place], [place], [address], [place] tel:[phone] [facility] No Information 9 Casey Connolly. [address] [place], [address], [place]. tel:[phone] Referring Provider: Nataly Summers, [address], [place], [address]. tel:[phone] [facility], [address], [place], [place], [address], [place] tel:[phone] [facility] No Information 0 200 9 Sheri Ingram. [address] , [address], [place], [address], [place]. tel:[phone] [facility], [address], [place], [place], [address], [place] tel:[phone] [facility] No Information 8 Sheri Rojas [address] , [address], [place], [address], [place]. tel:[phone] [facility], [address], [place], [place], [address], [place] tel:[phone] SEC [place] [facility] No Information Nov-0 8-200 7 Sheri Noblen. [address], [place], [address], [place]. tel:[phone] [facility], [address], [place], [place], [address], [place] tel:[phone] [facility] No Information Oct-2 5-200 7 Casey Connolly. [address] [place], [address], [place]. tel:[phone] Referring Provider: Mohsen Merlos, [address] [place], [address]. tel:[phone] [facility], [address], [place], [place], [address], [place] tel:[phone] [facility] No Information Sep-2 7-200 7 Casey Connolly. [address] [place], [address], [place]. tel:[phone] [facility], [address], [place], [place], [address], [place] tel:[phone] [facility] No Information Sep-2 4-200 7 Casey Connolly. [address] [place], [address], [place]. tel:[phone] [facility], [address], [place], [place], [address], [place] tel:[phone] [facility] No Information Sep-1 7-200 7 Casey Connolly. [address] [place], [address], [place]. tel:[phone] [facility], [address], [place], [place], [address], [place] tel:[phone] [facility] No Information Sep-1 3-200 7 Casey Connolly. [address] [place], [address], [place]. tel:[phone] Referring Provider: Nataly Summers, [address], [place], [facility]. tel:[phone] [facility], [address], [place], [place], [address], [place] tel:[phone] [facility] No Information Dec- 0-200 7 Sheri Rojas [address], [place], [facility], [place]. tel:[phone] [facility], [address], [place], [place], [address], [place] tel:[phone] [facility] No Information Nov-3 0-200 7 Casey Connolly. [address], [place], [facility], [place]. tel:[phone] [facility], [address], [place], [place], [address], [place] tel:[phone] [facility] No Information Nov-2 0-200 7 Sheri Rojas [address], [place], [facility], [place]. tel:[phone] [facility], [address], [place], [place], [address], [place] tel:[phone] SEC [facility] No Information 2-200 7 Sheri Rojas [address] , [address], [place], [facility], [place]. tel:[phone] [facility], [address], [place], [place], [address], [place] tel:[phone] [facility] No Information Nov-1 1-200 7 Sheri Rojas [address] , [address], [place], [facility], [place]. tel:[phone] [facility], [address], [place], [place], [address], [place] tel:[phone] [facility] No Information Sam-2 2-200 7 Sheri Ingram. [address] , [address], [place], [facility], [place]. tel:[phone] Referring Provider: Nataly Summers, [address], [place], [facility]. tel:[phone] [facility], [address], [place], [place], [address], [place] tel:[phone] SEC [facility] No Information Oct-1 4-200 7 Sheri Ingram. [address], [place], [facility], [place]. tel:[phone] [facility], [address], [place], [place], [address], [place] tel:[phone] [facility] No Information Oct-1 3-200 7 Sheri Ingram. [address], [place], [facility], [place]. tel:[phone] [facility], [address], [place], [place], [address], [place] tel:[phone] [facility] No Information September-2 5-200 7 Sheri Ingram. [address], [place], [address], [place]. tel:[phone] Referring Provider: Nataly Summers, [address], [place], [facility]. tel:[phone] Office Consultation [facility], [address], [place], [place], [address], [place] tel:[phone] [facility] No Information Jul-2 6-200 7 Casey Connolly. [address] [place], [address], [place]. tel:[phone] Referring Provider: Nataly Summers, [address], [place], [facility]. tel:[phone] [facility], [address] [facility] [address], [place], [place], [address], [place] tel:[phone] [facility] No Information 7 Sheri Ingram. [address], [place], [address], [place]. tel:[phone] Referring Provider: John No[facility] [address], [place], [address]. tel:[phone] Family History Family Member Type Diagnosis Age At Onset No Information Payers Payer name Insurance type Covered constitution party ID Authoriza brianna(s) Juan [facility] [id number] Social History Type Description Quantity Date Captured [...]
--- OUTSIDE RECORDS SUMMARY | 2024-09-01 18:39 | XMS_ITS | Clinical Summary ---
Author Organization [facility] Address [address] [place] [address] Care Team Providers Care Search Marketing Coordinator Name Role Phone Mona Currie MD PhD Unavailable [phone] Sammy Shepard MD Unavailable [phone] Rikki Amezquita MD Primary Care Provider Allergies Active Allergy Reactions Criticality Noted Date Comments Diphenhydramine Other (See comments) Low Restless leg Nickel Rash Medium Nifedipine Chest tightness Medium Ocrjqqf-Omq-Sbp Reductase Inhibitors Muscle pain Medium Sulfa Hives [...] tablet (20 mg total) nightly Active banana kuolnp-BSA-ryv er 5 gram-45 kcal/60 mL liquid in packet Administer 1 packet per feeding tube 3 (three) times a day Active menthol/zinc oxide (REMEDY CALAZIME SKIN PASTE TOP) Apply 1 Application topically 2 (two) times a day To coccyx Active fluticasone-um eclidin-vilant er (TRELEGY ELLIPTA) 200-62.5-25 mcg inhaler Inhale 1 [...] (three) times a day 180 mL 11 4 025 Active Additional Information Patient not taking.Reported on 07/01/2024 insulin glargine 100 unit/mL vial for injection Inject 18 Units under the skin nightly 10 mL 1 4 025 Active rOPINIRole (REQUIP) 0.5 mg tablet Administer per tube 1 tablet (0.5 mg total) 2 (two) times a day 60 tablet 11 4 025 Active epoetin bryce-epbx (RETACRIT) (3,000 unit/mL) solutionIndica tions:ESRD on Dialysis Infuse 2 mL (6,000 Units total) into a venous catheter 3 (three) times a week 24 mL 4 Active traZODone (DESYREL) 50 mg tablet Take 0.5 tablets (25 mg total) by mouth 2 (two) times a day 30 tablet 4 Active Additional Information Patient taking differently: 50 mgoralNightly, Reported on 07/01/2024 levothyroxine (SYNTHROID) 200 mcg tablet Administer per tube 1 tablet (200 mcg total) implementation analyst before breakfast 4 Active Additional Information Patient taking differently: 175 mcggastrostomy tube Daily (early AM), Reported on 07/01/2024 LORazepam (ATIVAN) 0.5 mg tablet Take 1 tablet (0.5 mg total) by mouth every 12 (twelve) hours as needed for anxiety 28 tablet 4 4 Active amiodarone (PACERONE) 200 mg tablet ADMINISTER 1 TABLET PER TUBE ONCE DAILY 30 tablet 11 5 Active Active Problems Problem Noted Date Diagnosed Date Centrilobular emphysema 04/13/2024 Assessment & Plan (04/28/2024 2:26 PM QUALITY WORKER): Stable on room air, continue trelegy, spiriva, prn duonebs Assessment & Plan (04/13/2024 12:50 PM QUALITY WORKER): Stable on room air, continue trelegy, spiriva, [...] 02/26/2024 Assessment & Plan (04/28/2024 2:29 PM QUALITY WORKER): Hb 9-10 at baseline, stable, continue epogen [...] 01/25/2024 Assessment & Plan (04/28/2024 2:25 PM QUALITY WORKER): Tube removed, keep healing stoma clean, dry, covered. F/u with PCP Assessment & Plan (04/13/2024 12:46 PM QUALITY WORKER): Recently pulled out by patient, surgical site is healing, continue to clean daily and cover with dry gauze Assessment & Plan (04/09/2024 1:53 PM QUALITY WORKER): Ok to keep tube out, cover area daily with dry gauze until healed, notify provider for change in condition or sx of dysphagia Assessment & Plan (04/06/2024 8:05 PM QUALITY WORKER): Now tolerating PO, likely could permanently DC soon, continue with h2o flushes for now Assessment & Plan (03/15/2024 10:55 AM QUALITY WORKER): Continue to flush q.i.d., able to tolerate food by mouth, PLATING OPERATOR following Assessment & Plan (03/06/2024 9:49 PM [...] on imaging, continue nepro at 40ml/hr with PLATING OPERATOR following for repeat swallow studies Hyperkalemia 01/18/2024 Assessment & Plan (01/18/2024 7:41 AM CDT): Improved after treatment at the hospital. Continue to monitor with dialysis. 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 01/18/2024 Assessment & Plan (04/28/2024 2:31 PM QUALITY WORKER): Has some improvement with therapy but remains weak with hemiparesis and aphasia, requires full care for all ADLs, unable to reposition self and will require electric hospital bed at home, ongoing PT/OT Contonie asa, statin, eliquis Heart healthy diet with exercise as tolerated Maintain BP and glycemic control F/u PCP Assessment & Plan (04/13/2024 12:49 PM QUALITY WORKER): Deficits improving have seem to stabilize now ambulatory with walker and gait belt, tolerating PO, speech garbled, continue statin, eliquis, heart healthy diet with exercise as tolerated; may need to transfer to LTC vs home with home health and family to care Assessment & Plan (04/09/2024 1:53 PM QUALITY WORKER): Deficits improving, now ambulatory with walker and gait belt, tolerating PO, speech remains garbled, continue statin, eliquis, heart healthy diet with exercise as tolerated Assessment & Plan (04/06/2024 8:08 PM QUALITY WORKER): Improving with therapies, now ambulatory and tolerating PO, speech remains garbled, continue statin, eliquis, heart healthy diet with exercise as tolerated Assessment & Plan (03/31/2024 2:26 PM QUALITY WORKER): Speech and mobility improving, now ambulatory with walker and gait belt. Continue PT/OT/PLATING OPERATOR, continue statin and Eliquis, maintain BP and glycemic control Assessment & Plan (03/20/2024 8:07 PM QUALITY WORKER): Improving with therapy, continue statin and Eliquis, maintain BP and glycemic control. Continue PT OT, PLATING OPERATOR, remains a fall risk F/u with neurology as scheduled, plans to DC home with Assessment & Plan (03/15/2024 10:51 AM QUALITY WORKER): Improving with therapy, continue statin and Eliquis, maintain BP and glycemic control. Continue PT OT, PLATING OPERATOR, remains a fall risk Assessment & Plan (03/06/2024 9:49 PM CDT): Stable, improving with therapies, continue statin, eliquis, PT/OT/PLATING OPERATOR, supportive care, continue to advance diet as tolerated Assessment & Plan (02/27/2024 3:02 PM CDT): Stable, improving with therapies, continue statin, eliquis, PT/OT/PLATING OPERATOR, supportive care with plans to DC home following rehab stay Assessment & Plan (02/20/2024 1:56 PM CDT): Deficits improving with therapy, continue statin and eliquis, PT/OT/PLATING OPERATOR with video swallow scheduled Continue bID zyprexa 2.5mg for now, may tolerate GDR at subsequent visit Assessment & Plan (02/19/2024 10:51 AM CDT): Improving with therapy, no recurrent episodes of agitation since starting BID zyprexa, continue statin and eliquis, PT/OT/PLATING OPERATOR with video swallow scheduled Assessment & Plan (02/11/2024 1:32 PM CDT): Improving, continue statin and eliquis, PT/OT. PLATING OPERATOR following for advancement of diet, will schedule Zyprexa 2.5mg HS rather than In am, conitnue supportive care, fall precautions Assessment & Plan (02/08/2024 3:56 PM CDT): Mobility and speech improving with intermittent agitation, fall risk, zyprexa increased to 2.5mg daily as unable to be redirected at times. Continue statin, eliquis, PT/TO/PLATING OPERATOR, TF zainab per RD recs Assessment & Plan (02/03/2024 8:55 AM CDT): Mobility is improving, remains aphasic, able to follow simple commands and has spontaneous movements of all extremities; continue statin, eliquis, glycemic control, BP management, PT/OT/PLATING OPERATOR Assessment & Plan (02/01/2024 9:33 AM CDT): Mobility is improving, intermittent anxiety, will need to monitor and provide supportive care, attempt to avoid benzos or antipsychotics although may need prn low dose meds due to fall risk and inability to be redirected; continue statin, eliquis, glycemic control, BP management, PT/OT/PLATING OPERATOR Assessment & Plan (01/28/2024 2:35 PM CDT): [...] & Plan (01/25/2024 12:46 PM CDT): Ongoing PT/OT/PLATING OPERATOR with generalized weakness, aphasia and R sided facial droop, follows some simple commands, continue statin and eliquis; monitor for fall risk given intermittent agitation; no new meds today but may need PRN due to fall risk Assessment & Plan (01/25/2024 11:13 AM CDT): Mobility is improving now at times getting out of bed without help, continue to monitor for fall risk, PT/OT/PLATING OPERATOR; continue statin and eliquis Assessment & Plan (01/18/2024 5:52 PM CDT): Ongoing R sided weakness, R sided facial droop, aphasia; reports some improvement in spontaneous movement and mumbling. Continue asa, statin, eliquis; of note has documented statin intolerance, will need to find out specifics Continue PT/OT PLATING OPERATOR , tube feeds for now with plans for repeat video swallow Type 2 diabetes mellitus with renal complication 01/18/2024 Assessment & Plan (04/09/2024 1:54 PM QUALITY WORKER): Glucose logs reviewed and stable, continue HS lantus and mealtime SSI, will try to DC SSI prior to DC home Assessment & Plan (04/06/2024 8:06 PM QUALITY WORKER): Stable, continue HS lantus and mealtime SSI, [...] At risk for amiodarone toxicity with manager long term care u se 10/06/2022 Chronic anticoagulation 10/06/2022 Paroxysmal atrial fibrillation 10/06/2022 Assessment & Plan (04/28/2024 2:28 PM QUALITY WORKER): Rate controlled, continue metoprolol, amiodarone, eliquis F/u cardiology dr wiley Assessment & Plan (04/13/2024 12:46 PM QUALITY WORKER): Rate controlled on exam; continue metoprolol, amiodarone, Eliquis ; no recent falls Assessment & Plan (04/06/2024 8:06 PM QUALITY WORKER): Rate controlled; continue metoprolol, amiodarone, Eliquis Assessment & Plan (03/31/2024 2:29 PM QUALITY WORKER): Rate controlled on metoprolol, amiodarone; continue b.i.d. Eliquis Assessment & Plan (03/20/2024 8:09 PM QUALITY WORKER): Stable on metoprolol, amiodarone and eliquis, conitnue [...] 10/06/2022 Assessment & Plan (04/28/2024 2:26 PM QUALITY WORKER): Continue treatments outpatient MWF, epogen on HD days, f/u with nephrology Assessment & Plan (04/09/2024 1:54 PM QUALITY WORKER): Tolerating HD MWF, at times using p.r.n. lorazepam with HD treatment, anxiety during access. Monitor electrolytes and weight Continue Epogen Assessment & Plan (04/06/2024 8:08 PM QUALITY WORKER): Continue HD MWF, p.r.n. lorazepam with HD treatment. Monitor electrolytes and weight Continue Epogen Assessment & Plan (03/31/2024 2:26 PM QUALITY WORKER): Continue HD MWF, continues to use p.r.n. lorazepam with HD treatments; daughter states this is helping,. Monitor electrolytes and weight Continue Epogen Assessment & Plan (03/20/2024 8:08 PM QUALITY WORKER): Continue HD MWF, continue to monitor electrolytes and weight, may use p.r.n. lorazepam with HD treatments; no reports of recent agitation with treatments Assessment & Plan (03/15/2024 10:52 AM QUALITY WORKER): Continue HD MWF, continue to monitor electrolytes [...] 3:59 PM CDT): Receiving treatments MWF at [facility], intermittent anxiety, increase zyprexa to daily, may [...] 5:55 PM CDT): Continue treatments MWF at [facility], TID calcium acetate, nephrology following, nepro tube feeds ordered, starting on jevity on admission due to no nepro available Assessment & Plan (01/18/2024 7:41 AM CDT): Continue with dialysis 3 times a week. Continue calcium acetate. Labs with dialysis. Preoperative cardiovascular examination 09/20/19 22 Chronic heart failure with preserved ejection fr action 07/02/2019 Assessment & Plan (04/28/2024 2:26 PM QUALITY WORKER): Stable, continue metoprolol, monitor weights with HD Assessment & Plan (03/20/2024 8:08 PM QUALITY WORKER): Stable on exam, continue metoprolol, monitor I/O, [...] 02/04 Assessment & Plan (04/06/2024 8:06 PM QUALITY WORKER): Weight is stable since rehab admission, continue exercise as tolerated, RD following Assessment & Plan (03/20/2024 8:09 PM QUALITY WORKER): Mobility is improving, recently stopped TF and [...] 02/04 Assessment & Plan (04/13/2024 12:48 PM QUALITY WORKER): Stable/compensated, continue HD treatments, weekly weights, metoprolol, statin amio, eliquis Assessment & Plan (03/20/2024 8:08 PM QUALITY WORKER): Stable on metoprolol and amiodarone, continue HD [...] a associated with type 2 diabetes mellitus ([facility]) 05/20/2013 Overview (08/11/2016): DMII WO CMP UNCNTRLD Assessment & Plan (04/13/2024 12:48 PM QUALITY WORKER): Well controlled on lantus 18 units hs with mealtime SSI, continue accuchecks ac and hs Assessment & Plan (03/15/2024 10:54 AM QUALITY WORKER): Glucose logs reviewed continue lantus 18 units [...] NOS Assessment & Plan (04/28/2024 2:28 PM QUALITY WORKER): Continue Lantus 18 units HS with mealtime SSI and daughter will assist with med administration Bp stable on metoprolol, monitor for BP goal ,140/<90 Continue accuchecks ac and hs Assessment & Plan (03/31/2024 2:28 PM QUALITY WORKER): Continue Lantus 18 units HS with mealtime SSI, glucose 236 this a.m., evening glucose 170, continue diabetic diet. BP stable on metoprolol Assessment & Plan (03/15/2024 10:53 AM QUALITY WORKER): BP stable on metoprolol 50mg daily, continue [...] NOS Assessment & Plan (04/13/2024 12:51 PM QUALITY WORKER): Subclinical hypothyroidism with TSH trending up to 92, encourage appropriate administration of medication in early a.m. on empty stomach, Synthroid increased to 200 mcg daily at previous visit with plan to repeat ths in 6 weeks, T3 and T4 normal Assessment & Plan (03/31/2024 2:30 PM QUALITY WORKER): Subclinical hypothyroidism with TSH trending up to 92, encourage appropriate administration of medication in early a.m. on empty stomach, Synthroid increased to 200 mcg daily Assessment & Plan (03/20/2024 8:09 PM QUALITY WORKER): Inpatient workup with Tsh elevated with normal t4, ensure medication administration appropriate early am on empty stomach; repeat TSH this week Assessment & Plan (03/15/2024 10:54 AM QUALITY WORKER): Inpatient workup with Tsh elevated with normal [...] on room air to complete PO abx, PLATING OPERATOR to follow, DC on prn duonebs, likely could DC Urinary tract infection without hematuria 05/11/2021 02/01/2024 Hyperlipidemia 04/22/2012 09/19/2021 Overview (08/10/2016): HYPERLIPIDEMIA NEC/NOS Encounters Date Type Department Care Team Description 07/01/2024 9:30 AM QUALITY WORKER Office Visit [facility] [address] [place] [address] Uriel Gillette MD Paroxysmal atrial fibrillation (HCC) (Primary Dx); Need for lipid screening 06/03/2024 Telephone [facility] [address] [place] [address] Uriel Gillette MD from Last 3 Months Immunizations Immunization Administration [...] Other Medical Back Pain Hx Other Medical 2003 DVT: RLE Cerebrovascular accident (CVA) (HCC) Stroke [...] drink = 0.6 oz pur e alcohol) [employer] Answer Date Recorded In the past 12 months has [employer], gas, oil, or water [employer] threatened to shut off services in your [...] 02/26/2024 How often do you attend chur or holiness services? Never 02/26/2024 Do you belong to any clubs o r organizations such as tenriism groups, unions, fraternal or athletic groups, or [...] place to sleep or slept in a fpc (including now)? No 05/13/2021 Housing Stability Vital Sign Answer Yonathan e Recorded In the last 12 months, was t here a time when you were not able to pay the mortgage or rent on time? No 02/26/2024 In the past 12 months, how m any times have you moved where you were living? 0 02/26/2024 At any time in the past 12 m [facility], were you homeless or living in a fpc (including now)? No 02/26/2024 Personal Safety Answer Date Recorded Have you ever been in or are you currently in a harmful physical or emotional relationship or is someone making you feel afraid or unsafe? Denies 02/25/2024 Comments No Sex and Gender Information Value Date Recorded Sex Assigned at Not on file Legal Sex Female 10:22 AM QUALITY WORKER Gender Identity Not on file Sexual Orientation Not on file Obstetrics History Last Filed Vital Signs Vital Sign Reading Time Taken Comments Blood Pressure 120/66 07/01/2024 9:38 AM QUALITY WORKER Pulse 55 07/01/2024 9:38 AM QUALITY WORKER Temperature 36.5 C (97.7 F) 03/03/2024 11:40 AM CDT Respiratory Rate 22 03/05/2024 8:31 AM CDT Oxygen Saturation 97% 07/01/2024 9:38 AM QUALITY WORKER Inhaled Oxygen Concentration - - Weight 89.7 kg (197 lb 11.2 oz) 07/01/2024 9:38 AM QUALITY WORKER Height 162.6 cm (5' 4 ) 07/01/2024 9:38 AM QUALITY WORKER Body Mass Index 33.94 07/01/2024 9:38 AM QUALITY WORKER Plan of Treatment Health Maintenance Due Date Last Done Comments Albumin Creatinine Ratio, Urine 1948 Colon Cancer Screening-Colonoscopy 1950 Osteoporosis Screening-Bone Density Scan 1950 Dilated Eye Exam 1948 Foot Exam 1948 DTaP/Tdap/Td Vaccine (1 - Tdap) 12/27/1959 Zoster Vaccine (1 of 2) 1998 Well Visit 65+ 2013 Pneumococcal vaccine 65+ (2 of 2 - PPSV23) 03/02/2016 01/06/2016 Depression Screening 05/10/2022 05/10/2021 Hemoglobin A1C 08/27/2024 02/27/2024, 09/2021, 10/25/2018, Additional history exists Influenza Vaccine (Season Ended) 2025 03/07/2022, 02/04/2021, 02/17/2018, Additional history exists Fall Risk Assessment 03/03/2025 03/03/2024, 09/20/19 22 eGFR 03/03/2025 03/03/2024, 02/05, 02/27/2024, Additional history exists Lipid Panel 07/01/2025 07/01/2024, 0606/2022, 05/11/2021, Additional history exists Hepatitis C Screening Completed 05/08/2022 Hepatitis B Screening Completed 02/26/2024 Procedures Procedure Name Priority Date/Time Associated Diagnosis Comments POCT LIPID PANEL Routine 07/01/2024 9:57 AM QUALITY WORKER Need for lipid screening EGFR Routine 03/03/2024 6:45 AM CDT HEMOGLOBIN A1C Routine 02/27/2024 5:59 AM CDT HEPATITIS PANEL, ACUTE STAT 05/08/2022 3:59 PM QUALITY WORKER from Last 3 Months or Most Recently Relevant to Health Maintenance Results * POCT lipid panel (07/01/2024 9:57 AM QUALITY WORKER) Cholesterol, POC 138 mg/dL Comment:GLU = 176 HDL, POC 17 mg/dL Triglycerides, POC 168 mg/dL LDL Cholesterol POC 88 mg/dL Chol/HDL Ratio, POC 5.2 Non-HDL Cholesterol, POC 121 mg/dL Cholesterol Total, POC 138 mg/dL Capillary blood 07/01/2024 9 :57 AM QUALITY WORKER Uriel Gillette MD POINT OF CARE TEST [...] MD LAB BLOOD ORDERABLES Final Resu lt Performing Organization Address [facility] de Phone Number [address] [address] * (ABNORMAL) Hemoglobin A1c (02/27/2024 5:59 AM CDT) Pathologist [facility] Hgb A1C 7.5(H) 4.0 - 5.6 % Estimated Average Glucose 169 mg/dL [facility] Comment: The ADA recommends reporting an estimated Average Glucose (eAG) with all Hemoglobin A1c results using the equation derived from a study of 507 normal and diabetic adults. Minority populations were underrepresented and children were not included. (Diabetes Care 31:1698-7105, 2008). The eAG is not equivalent to a fasting glucose. Blood 02/27/2024 5:59 AM CDT 02/27/2024 7:11 AM CDT Asif Delgadillo MD LAB BLOOD ORDERABLES Final Re sult Performing Organization Address [facility] de Phone Number [address] [address] [place] [address] * Hepatitis panel, acute (05/08/2022 3:59 PM QUALITY WORKER) Pathologist [facility] Hep A IgM Nonreactive Nonreactive [facility] Comment: Interpretive Data: If Hep A IgM Ab is reported as Equivocal, a new sample should be drawn in two weeks for testing. Current interpretive data was last revised on 19. Hep B core IgM Nonreactive Nonreactive [facility] Comment: Interpretive Data If HepB Core IgM Ab is reported as Equivocal, a new sample should be drawn in two weeks for testing. Current interpretive data was last revised on 19. Hep C Ab Nonreactive Nonreactive [facility] Comment: Interpretive Data Nonreactive: Antibodies to [...] last revised on 2019. HepBsAg Nonreactive Nonreactive [facility] Blood 05/08/2022 3:59 PM QUALITY WORKER 05/08/2022 3:59 PM QUALITY WORKER Mellissa Garcia DO LAB MICROBIOLOGY - GENERAL ORD ERABLES Final Result 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 Analyst Expl anation ADVANCE DIRECTIVE 03/04/2024 10:[address] - Phys Order for PT Preferences * Full Code (Latest Code Status on File) Date Activated Date Inactivated Comments 02/25/2024 5:55 PM 03/03/2024 4:42 PM * Full Code Date Activated Date Inactivated Comments 05/11/2021 3:52 AM 05/14/2021 8:52 PM Care Teams Search Marketing Coordinator Relationship Specialty Start Date End Date Rikki Amezquita MD [address] [facility] [address] [place] [address] PCP - General Family Medicine 07/01/24 Mona Currie MD PhD Medical Oncologist/Cathode Washer Medical Oncology 01/07/21 Sammy Shepard MD Consulting Physician Nephrology 05/14/21
--- OUTSIDE RECORDS SUMMARY | 2024-09-01 18:39 | XMS_ITS | Referral Summary ---
Author Organization [facility] Address [address] [place] [address] Care Team Providers Care Computer Networker Name Role Phone Mona Currie MD PhD Unavailable [phone] Sammy Shepard MD Unavailable [phone] Rikki Amezquita MD Primary Care Provider Encounters Date Type Department Care Team Description 07/01/2024 9:30 AM JUNIOR SYSTEMS ENGINEER Office Visit [facility] Cardiology [address] [place] [address] Uriel Gillette MD Paroxysmal atrial fibrillation (HCC) (Primary Dx); Need for lipid screening 06/03/2024 Telephone [facility] Medical [facility] Cardiology [address] [place] [address] Uriel Gillette MD from Last 3 Months Allergies Active Allergy Reactions Criticality Noted Date Comments Diphenhydramine Other (See comments) Low Restless leg Nickel Rash Medium Nifedipine Chest tightness Medium Vvmwpvh-Qzc-Tga Reductase Inhibitors Muscle pain Medium Sulfa Hives [...] tablet (20 mg total) nightly Active banana uxylkk-KFW-ckc er 5 gram-45 kcal/60 mL liquid in [...] times a day 180 mL 11 4 Active Additional Information Patient not taking.Reported on [...] per tube 1 tablet (200 mcg total) virtual classroom manager before breakfast 4 Active Additional Information Patient [...] 04/13/2024 Assessment & Plan (04/28/2024 2:26 PM JUNIOR SYSTEMS ENGINEER): Stable on room air, continue trelegy, spiriva, prn duonebs Assessment & Plan (04/13/2024 12:50 PM JUNIOR SYSTEMS ENGINEER): Stable on room air, continue trelegy, spiriva, [...] 02/26/2024 Assessment & Plan (04/28/2024 2:29 PM JUNIOR SYSTEMS ENGINEER): Hb 9-10 at baseline, stable, continue epogen [...] 01/25/2024 Assessment & Plan (04/28/2024 2:25 PM JUNIOR SYSTEMS ENGINEER): Tube removed, keep healing stoma clean, dry, covered. F/u with PCP Assessment & Plan (04/13/2024 12:46 PM JUNIOR SYSTEMS ENGINEER): Recently pulled out by patient, surgical site is healing, continue to clean daily and cover with dry gauze Assessment & Plan (04/09/2024 1:53 PM JUNIOR SYSTEMS ENGINEER): Ok to keep tube out, cover area daily with dry gauze until healed, notify provider for change in condition or sx of dysphagia Assessment & Plan (04/06/2024 8:05 PM JUNIOR SYSTEMS ENGINEER): Now tolerating PO, likely could permanently DC soon, continue with h2o flushes for now Assessment & Plan (03/15/2024 10:55 AM JUNIOR SYSTEMS ENGINEER): Continue to flush q.i.d., able to tolerate food by mouth, PATCHING MACHINE OPERATOR following Assessment & Plan (03/06/2024 9:49 [...] on imaging, continue nepro at 40ml/hr with PATCHING MACHINE OPERATOR following for repeat swallow studies Hyperkalemia 01/18/2024 Assessment & Plan (01/18/2024 7:41 AM CDT): Improved after treatment at the hospital. Continue to monitor with dialysis. 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 01/18/2024 Assessment & Plan (04/28/2024 2:31 PM JUNIOR SYSTEMS ENGINEER): Has some improvement with therapy but remains weak with hemiparesis and aphasia, requires full care for all ADLs, unable to reposition self and will require electric hospital bed at home, ongoing PT/OT Contonie asa, statin, eliquis Heart healthy diet with exercise as tolerated Maintain BP and glycemic control F/u PCP Assessment & Plan (04/13/2024 12:49 PM JUNIOR SYSTEMS ENGINEER): Deficits improving have seem to stabilize now ambulatory with walker and gait belt, tolerating PO, speech garbled, continue statin, eliquis, heart healthy diet with exercise as tolerated; may need to transfer to LTC vs home with home health and family to care Assessment & Plan (04/09/2024 1:53 PM JUNIOR SYSTEMS ENGINEER): Deficits improving, now ambulatory with walker and gait belt, tolerating PO, speech remains garbled, continue statin, eliquis, heart healthy diet with exercise as tolerated Assessment & Plan (04/06/2024 8:08 PM JUNIOR SYSTEMS ENGINEER): Improving with therapies, now ambulatory and tolerating PO, speech remains garbled, continue statin, eliquis, heart healthy diet with exercise as tolerated Assessment & Plan (03/31/2024 2:26 PM JUNIOR SYSTEMS ENGINEER): Speech and mobility improving, now ambulatory with walker and gait belt. Continue PT/OT/PATCHING MACHINE OPERATOR, continue statin and Eliquis, maintain BP and glycemic control Assessment & Plan (03/20/2024 8:07 PM JUNIOR SYSTEMS ENGINEER): Improving with therapy, continue statin and Eliquis, maintain BP and glycemic control. Continue PT OT, PATCHING MACHINE OPERATOR, remains a fall risk F/u with neurology as scheduled, plans to DC home with Assessment & Plan (03/15/2024 10:51 AM JUNIOR SYSTEMS ENGINEER): Improving with therapy, continue statin and Eliquis, maintain BP and glycemic control. Continue PT OT, PATCHING MACHINE OPERATOR, remains a fall risk Assessment & Plan (03/06/2024 9:49 PM CDT): Stable, improving with therapies, continue statin, eliquis, PT/OT/PATCHING MACHINE OPERATOR, supportive care, continue to advance diet as tolerated Assessment & Plan (02/27/2024 3:02 PM CDT): Stable, improving with therapies, continue statin, eliquis, PT/OT/PATCHING MACHINE OPERATOR, supportive care with plans to DC home following rehab stay Assessment & Plan (02/20/2024 1:56 PM CDT): Deficits improving with therapy, continue statin and eliquis, PT/OT/PATCHING MACHINE OPERATOR with video swallow scheduled Continue bID zyprexa 2.5mg for now, may tolerate GDR at subsequent visit Assessment & Plan (02/19/2024 10:51 AM CDT): Improving with therapy, no recurrent episodes of agitation since starting BID zyprexa, continue statin and eliquis, PT/OT/PATCHING MACHINE OPERATOR with video swallow scheduled Assessment & Plan (02/11/2024 1:32 PM CDT): Improving, continue statin and eliquis, PT/OT. PATCHING MACHINE OPERATOR following for advancement of diet, will schedule Zyprexa 2.5mg HS rather than In am, conitnue supportive care, fall precautions Assessment & Plan (02/08/2024 3:56 PM CDT): Mobility and speech improving with intermittent agitation, fall risk, zyprexa increased to 2.5mg daily as unable to be redirected at times. Continue statin, eliquis, PT/TO/PATCHING MACHINE OPERATOR, DINORAH lamb per RD recs Assessment & Plan (02/03/2024 8:55 AM CDT): Mobility is improving, remains aphasic, able to follow simple commands and has spontaneous movements of all extremities; continue statin, eliquis, glycemic control, BP management, PT/OT/PATCHING MACHINE OPERATOR Assessment & Plan (02/01/2024 9:33 AM CDT): Mobility is improving, intermittent anxiety, will need to monitor and provide supportive care, attempt to avoid benzos or antipsychotics although may need prn low dose meds due to fall risk and inability to be redirected; continue statin, eliquis, glycemic control, BP management, PT/OT/PATCHING MACHINE OPERATOR Assessment & Plan (01/28/2024 2:35 PM [...] & Plan (01/25/2024 12:46 PM CDT): Ongoing PT/OT/PATCHING MACHINE OPERATOR with generalized weakness, aphasia and R sided facial droop, follows some simple commands, continue statin and eliquis; monitor for fall risk given intermittent agitation; no new meds today but may need PRN due to fall risk Assessment & Plan (01/25/2024 11:13 AM CDT): Mobility is improving now at times getting out of bed without help, continue to monitor for fall risk, PT/OT/PATCHING MACHINE OPERATOR; continue statin and eliquis Assessment & Plan (01/18/2024 5:52 PM CDT): Ongoing R sided weakness, R sided facial droop, aphasia; reports some improvement in spontaneous movement and mumbling. Continue asa, statin, eliquis; of note has documented statin intolerance, will need to find out specifics Continue PT/OT PATCHING MACHINE OPERATOR , tube feeds for now with plans for repeat video swallow Type 2 diabetes mellitus with renal complication 01/18/2024 Assessment & Plan (04/09/2024 1:54 PM JUNIOR SYSTEMS ENGINEER): Glucose logs reviewed and stable, continue HS lantus and mealtime SSI, will try to DC SSI prior to DC home Assessment & Plan (04/06/2024 8:06 PM JUNIOR SYSTEMS ENGINEER): Stable, continue HS lantus and mealtime SSI, [...] 04/11/2023 At risk for amiodarone toxicity with longterm u se 10/06/2022 Chronic anticoagulation 10/06/2022 Paroxysmal atrial fibrillation 10/06/2022 Assessment & Plan (04/28/2024 2:28 PM JUNIOR SYSTEMS ENGINEER): Rate controlled, continue metoprolol, amiodarone, eliquis F/u cardiology dr wiley Assessment & Plan (04/13/2024 12:46 PM JUNIOR SYSTEMS ENGINEER): Rate controlled on exam; continue metoprolol, amiodarone, Eliquis ; no recent falls Assessment & Plan (04/06/2024 8:06 PM JUNIOR SYSTEMS ENGINEER): Rate controlled; continue metoprolol, amiodarone, Eliquis Assessment & Plan (03/31/2024 2:29 PM JUNIOR SYSTEMS ENGINEER): Rate controlled on metoprolol, amiodarone; continue b.i.d. Eliquis Assessment & Plan (03/20/2024 8:09 PM JUNIOR SYSTEMS ENGINEER): Stable on metoprolol, amiodarone and eliquis, conitnue [...] 10/06/2022 Assessment & Plan (04/28/2024 2:26 PM JUNIOR SYSTEMS ENGINEER): Continue treatments outpatient MWF, epogen on HD days, f/u with nephrology Assessment & Plan (04/09/2024 1:54 PM JUNIOR SYSTEMS ENGINEER): Tolerating HD MWF, at times using p.r.n. lorazepam with HD treatment, anxiety during access. Monitor electrolytes and weight Continue Epogen Assessment & Plan (04/06/2024 8:08 PM JUNIOR SYSTEMS ENGINEER): Continue HD MWF, p.r.n. lorazepam with HD treatment. Monitor electrolytes and weight Continue Epogen Assessment & Plan (03/31/2024 2:26 PM JUNIOR SYSTEMS ENGINEER): Continue HD MWF, continues to use p.r.n. lorazepam with HD treatments; daughter states this is helping,. Monitor electrolytes and weight Continue Epogen Assessment & Plan (03/20/2024 8:08 PM JUNIOR SYSTEMS ENGINEER): Continue HD MWF, continue to monitor electrolytes and weight, may use p.r.n. lorazepam with HD treatments; no reports of recent agitation with treatments Assessment & Plan (03/15/2024 10:52 AM JUNIOR SYSTEMS ENGINEER): Continue HD MWF, continue to monitor electrolytes [...] 3:59 PM CDT): Receiving treatments MWF at [facility], intermittent anxiety, increase zyprexa to daily, [...] 5:55 PM CDT): Continue treatments MWF at [facility], TID calcium acetate, nephrology following, nepro tube feeds ordered, starting on jevity on admission due to no nepro available Assessment & Plan (01/18/2024 7:41 AM CDT): Continue with dialysis 3 times a week. Continue calcium acetate. Labs with dialysis. Preoperative cardiovascular examination 09/20/19 22 Chronic heart failure with preserved ejection fr action 07/02/2019 Assessment & Plan (04/28/2024 2:26 PM JUNIOR SYSTEMS ENGINEER): Stable, continue metoprolol, monitor weights with HD Assessment & Plan (03/20/2024 8:08 PM JUNIOR SYSTEMS ENGINEER): Stable on exam, continue metoprolol, monitor I/O, [...] 02/04 Assessment & Plan (04/06/2024 8:06 PM JUNIOR SYSTEMS ENGINEER): Weight is stable since rehab admission, continue exercise as tolerated, RD following Assessment & Plan (03/20/2024 8:09 PM JUNIOR SYSTEMS ENGINEER): Mobility is improving, recently stopped TF and [...] 02/04 Assessment & Plan (04/13/2024 12:48 PM JUNIOR SYSTEMS ENGINEER): Stable/compensated, continue HD treatments, weekly weights, metoprolol, statin lesly coxis Assessment & Plan (03/20/2024 8:08 PM JUNIOR SYSTEMS ENGINEER): Stable on metoprolol and amiodarone, continue HD [...] a associated with type 2 diabetes mellitus ([facility]) 05/20/2013 Overview (08/11/2016): DMII WO CMP UNCNTRLD Assessment & Plan (04/13/2024 12:48 PM JUNIOR SYSTEMS ENGINEER): Well controlled on lantus 18 units hs with mealtime SSI, continue accuchecks ac and hs Assessment & Plan (03/15/2024 10:54 AM JUNIOR SYSTEMS ENGINEER): Glucose logs reviewed continue lantus 18 units [...] NOS Assessment & Plan (04/28/2024 2:28 PM JUNIOR SYSTEMS ENGINEER): Continue Lantus 18 units HS with mealtime SSI and daughter will assist with med administration Bp stable on metoprolol, monitor for BP goal ,140/<90 Continue accuchecks ac and hs Assessment & Plan (03/31/2024 2:28 PM JUNIOR SYSTEMS ENGINEER): Continue Lantus 18 units HS with mealtime SSI, glucose 236 this a.m., evening glucose 170, continue diabetic diet. BP stable on metoprolol Assessment & Plan (03/15/2024 10:53 AM JUNIOR SYSTEMS ENGINEER): BP stable on metoprolol 50mg daily, continue [...] NOS Assessment & Plan (04/13/2024 12:51 PM JUNIOR SYSTEMS ENGINEER): Subclinical hypothyroidism with TSH trending up to 92, encourage appropriate administration of medication in early a.m. on empty stomach, Synthroid increased to 200 mcg daily at previous visit with plan to repeat ths in 6 weeks, T3 and T4 normal Assessment & Plan (03/31/2024 2:30 PM JUNIOR SYSTEMS ENGINEER): Subclinical hypothyroidism with TSH trending up to 92, encourage appropriate administration of medication in early a.m. on empty stomach, Synthroid increased to 200 mcg daily Assessment & Plan (03/20/2024 8:09 PM JUNIOR SYSTEMS ENGINEER): Inpatient workup with Tsh elevated with normal t4, ensure medication administration appropriate early am on empty stomach; repeat TSH this week Assessment & Plan (03/15/2024 10:54 AM JUNIOR SYSTEMS ENGINEER): Inpatient workup with Tsh elevated with normal [...] on room air to complete PO abx, PATCHING MACHINE OPERATOR to follow, DC on prn duonebs, [...] drink = 0.6 oz pur e alcohol) [facility] Utilities Answer Date Recorded In the past 12 months has th e electric, gas, oil, or water company threatened to shut off services in your [...] any clubs o r organizations such as congregation groups, unions, fraternal or athletic groups, or [...] place to sleep or slept in a custodial (including now)? No 05/13/2021 Housing Stability Vital [...] time in the past 12 m [facility], were you homeless or living in a custodial (including now)? No 02/26/2024 Personal Safety Answer Date Recorded Have you ever been in or are you currently in a harmful physical or emotional relationship or is someone making you feel afraid or unsafe? Denies 02/25/2024 Comments No Sex and Gender Information Value Date Recorded Sex Assigned at Not on file Legal Sex Female 10:22 AM JUNIOR SYSTEMS ENGINEER Gender Identity Not on file Sexual Orientation Not on file Last Filed Vital Signs Vital Sign Reading Time Taken Comments Blood Pressure 120/66 07/01/2024 9:38 AM JUNIOR SYSTEMS ENGINEER Pulse 55 07/01/2024 9:38 AM JUNIOR SYSTEMS ENGINEER Temperature 36.5 C (97.7 F) 03/03/2024 11:40 AM CDT Respiratory Rate 22 03/05/2024 8:31 AM CDT Oxygen Saturation 97% 07/01/2024 9:38 AM JUNIOR SYSTEMS ENGINEER Inhaled Oxygen Concentration - - Weight 89.7 kg (197 lb 11.2 oz) 07/01/2024 9:38 AM JUNIOR SYSTEMS ENGINEER Height 162.6 cm (5' 4 ) 07/01/2024 9:38 AM JUNIOR SYSTEMS ENGINEER Body Mass Index 33.94 07/01/2024 9:38 AM JUNIOR SYSTEMS ENGINEER Plan of Treatment Not on file Procedures Procedure Name Priority Date/Time Associated Diagnosis Comments POCT LIPID PANEL Routine 07/01/2024 9:57 AM JUNIOR SYSTEMS ENGINEER Need for lipid screening EGFR Routine 03/03/2024 6:45 AM CDT HEMOGLOBIN A1C Routine 02/27/2024 5:59 AM CDT HEPATITIS PANEL, ACUTE STAT 05/08/2022 3:59 PM JUNIOR SYSTEMS ENGINEER from Last 3 Months or Most Recently Relevant to Health Maintenance Results * POCT lipid panel (07/01/2024 9:57 AM JUNIOR SYSTEMS ENGINEER) Cholesterol, POC 138 mg/dL Comment:GLU = 176 HDL, POC 17 mg/dL Triglycerides, POC 168 mg/dL LDL Cholesterol POC 88 mg/dL Chol/HDL Ratio, POC 5.2 Non-HDL Cholesterol, POC 121 mg/dL Cholesterol Total, POC 138 mg/dL Capillary blood 07/01/2024 9 :57 AM JUNIOR SYSTEMS ENGINEER Uriel Gillette MD POINT OF CARE TEST [...] ORDERABLES Final Resu lt Performing Organization Address [facility] de Phone Number [address] [place] [address] * (ABNORMAL) Hemoglobin A1c (02/27/2024 5:59 AM CDT) Hgb A1C 7.5(H) 4.0 - 5.6 % Estimated Average Glucose 169 mg/dL [facility] Comment: The ADA recommends reporting an estimated Average Glucose (eAG) with all Hemoglobin A1c results using the equation derived from a study of 507 normal and diabetic adults. Minority populations were underrepresented and children were not included. (Diabetes Care 31:6289-3239, 2008). The eAG is not equivalent to a fasting glucose. Blood 02/27/2024 5:59 AM CDT 02/27/2024 7:11 AM CDT Asif Delgadillo MD LAB BLOOD ORDERABLES Final Re sult Performing Organization Address [facility] de Phone Number [address] [address] * Hepatitis panel, acute (05/08/2022 3:59 PM JUNIOR SYSTEMS ENGINEER) Hep A IgM Nonreactive Nonreactive [facility] Comment: Interpretive Data: If Hep A IgM Ab is reported as Equivocal, a new sample should be drawn in two weeks for testing. Current interpretive data was last revised on 19. Hep B core IgM Nonreactive Nonreactive [facility] Comment: Interpretive Data If HepB Core IgM Ab is reported as Equivocal, a new sample should be drawn in two weeks for testing. Current interpretive data was last revised on 19. Hep C Ab Nonreactive [facility]reactive [facility] Comment: Interpretive Data Nonreactive: Antibodies to [...] last revised on 2019. HepBsAg Nonreactive Nonreactive [facility] Blood 05/08/2022 3:59 PM JUNIOR SYSTEMS ENGINEER 05/08/2022 3:59 PM JUNIOR SYSTEMS ENGINEER Mellissa Garcia DO LAB MICROBIOLOGY - GENERAL ORD ERABLES Final Result [facility] [address] Department [place] [address] from Last 3 Months or Most Recently Relevant to Health Maintenance Insurance MEDICARE [facility] MEDICARE [facility] MEDICARE SUPPLEMENT Advance Directives For more information, please contact: [phone] Documents on File Type Date Recorded Patient Wheat Shipper Expl anation ADVANCE DIRECTIVE 03/04/2024 10:[address] - Phys Order for PT Preferences * Full Code (Latest Code Status on File) Date Activated Date Inactivated Comments 02/25/2024 5:55 PM 03/03/2024 4:42 PM * Full Code Date Activated Date Inactivated Comments 05/11/2021 3:52 AM 05/14/2021 8:52 PM Care Teams Computer Networker Relationship Specialty Start Date End Date Rikki Amezquita MD [address] [place] [address] PCP - General Family Medicine 07/01/24 Mona Currie MD PhD Medical Oncologist/Digital Product Manager Medical Oncology 01/07/21 Sammy Shepard MD Consulting Physician Nephrology 05/14/21
--- OUTSIDE RECORDS SUMMARY | 2024-09-01 18:39 | XMS_ITS | CONTINUITY OF CARE DOCUMENT ---
Author Name dede aguayo Address Unknown Organization [facility] Address [address] [place] [address] Phone [phone] Care Team Providers Care Business Control Specialist Name Role Phone Stalin Donovan MD Unavailable Stalin Donovan MD Unavailable INSURANCE PROVIDERS Payer name Policy type / Coverage type [employer] red republican ID [facility] Blue [facility] [id number] [place] [id number]
--- OUTSIDE RECORDS SUMMARY | 2024-09-01 18:39 | XMS_ITS ---
Author Organization [facility] Address [address] [place] [address] Care Team Providers Care Technical Research Scientist Name Role Phone Mona Currie MD PhD Unavailable [phone] Sammy Shepard MD Unavailable [phone] Rikki Amezquita MD Primary Care Provider Dialysis Access Sites Type Status Location Placement Date Removal Da te Hemodialysis AV Access Upper arm Active Left Upper Arm - Anterior Procedures Procedure Name Priority Date/Time Associated Diagnosis Comments POCT LIPID PANEL Routine 07/01/2024 9:57 AM [employer] Need for lipid screening EGFR Routine 03/03/2024 6:45 AM CDT HEMOGLOBIN A1C Routine 02/27/2024 5:59 AM CDT HEPATITIS PANEL, ACUTE STAT 05/08/2022 3:59 PM [employer] from Last 3 Months or Most Recently Relevant to Health Maintenance Allergies Active Allergy Reactions Criticality Noted Date Comments Diphenhydramine Other (See comments) Low Restless leg Nickel Rash Medium Nifedipine Chest tightness Medium Fsqcgkn-Ulg-Yok Reductase Inhibitors Muscle pain Medium Sulfa Hives [...] tablet (20 mg total) nightly Active banana yfwyoe-EXC-tmo er 5 gram-45 kcal/60 mL liquid in [...] per tube 1 tablet (200 mcg total) automotive technician instructor before breakfast 4 Active Additional Information Patient [...] 04/13/2024 Assessment & Plan (04/28/2024 2:26 PM [employer]): Stable on room air, continue trelegy, spiriva, prn duonebs Assessment & Plan (04/13/2024 12:50 PM [employer]): Stable on room air, continue trelegy, spiriva, [...] 02/26/2024 Assessment & Plan (04/28/2024 2:29 PM [employer]): Hb 9-10 at baseline, stable, continue epogen [...] 01/25/2024 Assessment & Plan (04/28/2024 2:25 PM [employer]): Tube removed, keep healing stoma clean, dry, covered. F/u with PCP Assessment & Plan (04/13/2024 12:46 PM [employer]): Recently pulled out by patient, surgical site is healing, continue to clean daily and cover with dry gauze Assessment & Plan (04/09/2024 1:53 PM [employer]): Ok to keep tube out, cover area daily with dry gauze until healed, notify provider for change in condition or sx of dysphagia Assessment & Plan (04/06/2024 8:05 PM [employer]): Now tolerating PO, likely could permanently DC soon, continue with h2o flushes for now Assessment & Plan (03/15/2024 10:55 AM [employer]): Continue to flush q.i.d., able to tolerate food by mouth, TIEING MACHINE OPERATOR following Assessment & Plan (03/06/2024 [...] on imaging, continue nepro at 40ml/hr with TIEING MACHINE OPERATOR following for repeat swallow studies Hyperkalemia 01/18/2024 Assessment & Plan (01/18/2024 7:41 AM CDT): Improved after treatment at the hospital. Continue to monitor with dialysis. 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 01/18/2024 Assessment & Plan (04/28/2024 2:31 PM [employer]): Has some improvement with therapy but remains weak with hemiparesis and aphasia, requires full care for all ADLs, unable to reposition self and will require electric hospital bed at home, ongoing PT/OT Contonie asa, statin, eliquis Heart healthy diet with exercise as tolerated Maintain BP and glycemic control F/u PCP Assessment & Plan (04/13/2024 12:49 PM [employer]): Deficits improving have seem to stabilize now ambulatory with walker and gait belt, tolerating PO, speech garbled, continue statin, eliquis, heart healthy diet with exercise as tolerated; may need to transfer to LTC vs home with home health and family to care Assessment & Plan (04/09/2024 1:53 PM [employer]ARDEN): Deficits improving, now ambulatory with walker and gait belt, tolerating PO, speech remains garbled, continue statin, eliquis, heart healthy diet with exercise as tolerated Assessment & Plan (04/06/2024 8:08 PM [employer]EN): Improving with therapies, now ambulatory and tolerating PO, speech remains garbled, continue statin, eliquis, heart healthy diet with exercise as tolerated Assessment & Plan (03/31/2024 2:26 PM [employer]EN): Speech and mobility improving, now ambulatory with walker and gait belt. Continue PT/OT/TIEING MACHINE OPERATOR, continue statin and Eliquis, maintain BP and glycemic control Assessment & Plan (03/20/2024 8:07 PM [employer]EN): Improving with therapy, continue statin and Eliquis, maintain BP and glycemic control. Continue PT OT, TIEING MACHINE OPERATOR, remains a fall risk F/u with neurology as scheduled, plans to DC home with Assessment & Plan (03/15/2024 10:51 AM [employer]ARDEN): Improving with therapy, continue statin and Eliquis, maintain BP and glycemic control. Continue PT OT, TIEING MACHINE OPERATOR, remains a fall risk Assessment & Plan (03/06/2024 9:49 PM CDT): Stable, improving with therapies, continue statin, eliquis, PT/OT/TIEING MACHINE OPERATOR, supportive care, continue to advance diet as tolerated Assessment & Plan (02/27/2024 3:02 PM CDT): Stable, improving with therapies, continue statin, eliquis, PT/OT/TIEING MACHINE OPERATOR, supportive care with plans to DC home following rehab stay Assessment & Plan (02/20/2024 1:56 PM CDT): Deficits improving with therapy, continue statin and eliquis, PT/OT/TIEING MACHINE OPERATOR with video swallow scheduled Continue bID zyprexa 2.5mg for now, may tolerate GDR at subsequent visit Assessment & Plan (02/19/2024 10:51 AM CDT): Improving with therapy, no recurrent episodes of agitation since starting BID zyprexa, continue statin and eliquis, PT/OT/TIEING MACHINE OPERATOR with video swallow scheduled Assessment & Plan (02/11/2024 1:32 PM CDT): Improving, continue statin and eliquis, PT/OT. TIEING MACHINE OPERATOR following for advancement of diet, will schedule Zyprexa 2.5mg HS rather than In am, conitnue supportive care, fall precautions Assessment & Plan (02/08/2024 3:56 PM CDT): Mobility and speech improving with intermittent agitation, fall risk, zyprexa increased to 2.5mg daily as unable to be redirected at times. Continue statin, eliquis, PT/TO/TIEING MACHINE OPERATOR, TF nepro per RD recs Assessment & Plan (02/03/2024 8:55 AM CDT): Mobility is improving, remains aphasic, able to follow simple commands and has spontaneous movements of all extremities; continue statin, eliquis, glycemic control, BP management, PT/OT/TIEING MACHINE OPERATOR Assessment & Plan (02/01/2024 9:33 AM CDT): Mobility is improving, intermittent anxiety, will need to monitor and provide supportive care, attempt to avoid benzos or antipsychotics although may need prn low dose meds due to fall risk and inability to be redirected; continue statin, eliquis, glycemic control, BP management, PT/OT/TIEING MACHINE OPERATOR Assessment & Plan (01/28/2024 2:35 [...] & Plan (01/25/2024 12:46 PM CDT): Ongoing PT/OT/TIEING MACHINE OPERATOR with generalized weakness, aphasia and R sided facial droop, follows some simple commands, continue statin and eliquis; monitor for fall risk given intermittent agitation; no new meds today but may need PRN due to fall risk Assessment & Plan (01/25/2024 11:13 AM CDT): Mobility is improving now at times getting out of bed without help, continue to monitor for fall risk, PT/OT/TIEING MACHINE OPERATOR; continue statin and eliquis Assessment & Plan (01/18/2024 5:52 PM CDT): Ongoing R sided weakness, R sided facial droop, aphasia; reports some improvement in spontaneous movement and mumbling. Continue asa, statin, eliquis; of note has documented statin intolerance, will need to find out specifics Continue PT/OT TIEING MACHINE OPERATOR , tube feeds for now with plans for repeat video swallow Type 2 diabetes mellitus with renal complication 01/18/2024 Assessment & Plan (04/09/2024 1:54 PM [employer]): Glucose logs reviewed and stable, continue HS lantus and mealtime SSI, will try to DC SSI prior to DC home Assessment & Plan (04/06/2024 8:06 PM [employer]): Stable, continue HS lantus and mealtime SSI, [...] 04/11/2023 At risk for amiodarone toxicity with center director u se 10/06/2022 Chronic anticoagulation 10/06/2022 Paroxysmal atrial fibrillation 10/06/2022 Assessment & Plan (04/28/2024 2:28 PM [employer]): Rate controlled, continue metoprolol, amiodarone, eliquis F/u cardiology dr wiley Assessment & Plan (04/13/2024 12:46 PM [employer]EN): Rate controlled on exam; continue metoprolol, amiodarone, Eliquis ; no recent falls Assessment & Plan (04/06/2024 8:06 PM [employer] WARDEN): Rate controlled; continue metoprolol, amiodarone, Eliquis Assessment & Plan (03/31/2024 2:29 PM [employer]EN): Rate controlled on metoprolol, amiodarone; continue b.i.d. Eliquis Assessment & Plan (03/20/2024 8:09 PM [employer]EN): Stable on metoprolol, amiodarone and eliquis, conitnue [...] 10/06/2022 Assessment & Plan (04/28/2024 2:26 PM [employer]): Continue treatments outpatient MWF, epogen on HD days, f/u with nephrology Assessment & Plan (04/09/2024 1:54 PM [employer]): Tolerating HD MWF, at times using p.r.n. lorazepam with HD treatment, anxiety during access. Monitor electrolytes and weight Continue Epogen Assessment & Plan (04/06/2024 8:08 PM [employer]): Continue HD MWF, p.r.n. lorazepam with HD treatment. Monitor electrolytes and weight Continue Epogen Assessment & Plan (03/31/2024 2:26 PM [employer]EN): Continue HD MWF, continues to use p.r.n. lorazepam with HD treatments; daughter states this is helping,. Monitor electrolytes and weight Continue Epogen Assessment & Plan (03/20/2024 8:08 PM [employer]EN): Continue HD MWF, continue to monitor electrolytes and weight, may use p.r.n. lorazepam with HD treatments; no reports of recent agitation with treatments Assessment & Plan (03/15/2024 10:52 AM [employer]EN): Continue HD MWF, continue to monitor electrolytes [...] 3:59 PM CDT): Receiving treatments MWF at [facility], intermittent anxiety, increase zyprexa to [...] 5:55 PM CDT): Continue treatments MWF at [facility], TID calcium acetate, nephrology following, nepro tube feeds ordered, starting on jevity on admission due to no nepro available Assessment & Plan (01/18/2024 7:41 AM CDT): Continue with dialysis 3 times a week. Continue calcium acetate. Labs with dialysis. Preoperative cardiovascular examination 09/20/19 22 Chronic heart failure with preserved ejection fr action 07/02/2019 Assessment & Plan (04/28/2024 2:26 PM [employer]): Stable, continue metoprolol, monitor weights with HD Assessment & Plan (03/20/2024 8:08 PM [employer]): Stable on exam, continue metoprolol, monitor I/O, [...] 02/04 Assessment & Plan (04/06/2024 8:06 PM [employer]EN): Weight is stable since rehab admission, continue exercise as tolerated, RD following Assessment & Plan (03/20/2024 8:09 PM [employer]EN): Mobility is improving, recently stopped TF and [...] 02/04 Assessment & Plan (04/13/2024 12:48 PM [employer]EN): Stable/compensated, continue HD treatments, weekly weights, metoprolol, statin amio, eliquis Assessment & Plan (03/20/2024 8:08 PM [employer] AND G[employer] WARDEN): Stable on metoprolol and amiodarone, continue HD [...] a associated with type 2 diabetes mellitus ([facility]) 05/20/2013 Overview (08/11/2016): DMII WO CMP UNCNTRLD Assessment & Plan (04/13/2024 12:48 PM [employer] G[employer] WARDEN): Well controlled on lantus 18 units hs with mealtime SSI, continue accuchecks ac and hs Assessment & Plan (03/15/2024 10:54 AM [employer] WARDEN): Glucose logs reviewed continue lantus 18 units [...] NOS Assessment & Plan (04/28/2024 2:28 PM [employer] G[employer] WARDEN): Continue Lantus 18 units HS with mealtime SSI and daughter will assist with med administration Bp stable on metoprolol, monitor for BP goal ,140/<90 Continue accuchecks ac and hs Assessment & Plan (03/31/2024 2:28 PM [employer] AND GAME WARDEN): Continue Lantus 18 units HS with mealtime SSI, glucose 236 this a.m., evening glucose 170, continue diabetic diet. BP stable on metoprolol Assessment & Plan (03/15/2024 10:53 AM [employer] AND GAME WARDEN): BP stable on metoprolol 50mg daily, continue [...] NOS Assessment & Plan (04/13/2024 12:51 PM [employer] AND GAME WARDEN): Subclinical hypothyroidism with TSH trending up to 92, encourage appropriate administration of medication in early a.m. on empty stomach, Synthroid increased to 200 mcg daily at previous visit with plan to repeat ths in 6 weeks, T3 and T4 normal Assessment & Plan (03/31/2024 2:30 PM [employer] AND [employer] WARDEN): Subclinical hypothyroidism with TSH trending up to 92, encourage appropriate administration of medication in early a.m. on empty stomach, Synthroid increased to 200 mcg daily Assessment & Plan (03/20/2024 8:09 PM [employer] AND GAME WARDEN): Inpatient workup with Tsh elevated with normal t4, ensure medication administration appropriate early am on empty stomach; repeat TSH this week Assessment & Plan (03/15/2024 10:54 AM [employer] AND GAME WARDEN): Inpatient workup with Tsh elevated with normal [...] drink = 0.6 oz pur e alcohol) [facility] Utilities Answer Date Recorded In the past 12 months has [employer] gas, oil, or water [employer] threatened to shut off services in your [...] often do you attend chur ch or synagogue services? Never 02/26/2024 Do you belong to any clubs o r organizations such as scientology groups, unions, fraternal or athletic groups, or [...] place to sleep or slept in a residential (including now)? No 05/13/2021 Housing Stability Vital [...] in the past 12 m [facility], were you homeless or living in a residential (including now)? No 02/26/2024 Personal Safety Answer Date Recorded Have you ever been in or are you currently in a harmful physical or emotional relationship or is someone making you feel afraid or unsafe? Denies 02/25/2024 Comments No Sex and Gender Information Value Date Recorded Sex Assigned at Not on file Legal Sex Female 10:22 AM [employer] Gender Identity Not on file Sexual Orientation Not on file Last Filed Vital Signs Vital Sign Reading Time Taken Comments Blood Pressure 120/66 07/01/2024 9:38 AM [employer] Pulse 55 07/01/2024 9:38 AM [employer]EN Temperature 36.5 C (97.7 F) 03/03/2024 11:40 AM CDT Respiratory Rate 22 03/05/2024 8:31 AM CDT Oxygen Saturation 97% 07/01/2024 9:38 AM [employer]EN Inhaled Oxygen Concentration - - Weight 89.7 kg (197 lb 11.2 oz) 07/01/2024 9:38 AM [employer] Height 162.6 cm (5' 4 ) 07/01/2024 9:38 AM [employer]EN Body Mass Index 33.94 07/01/2024 9:38 AM [employer] Results * POCT lipid panel (07/01/2024 9:57 AM [employer]EN) Cholesterol, POC 138 mg/dL Comment:GLU = 176 HDL, POC 17 mg/dL Triglycerides, POC 168 mg/dL LDL Cholesterol POC 88 mg/dL Chol/HDL Ratio, POC 5.2 Non-HDL Cholesterol, POC 121 mg/dL Cholesterol Total, POC 138 mg/dL Capillary blood 07/01/2024 9 :57 AM [employer]EN us Uriel Gillette MD POINT OF CARE [...] LAB BLOOD ORDERABLES Final Resu lt [facility] [address] Department [place] [address] * (ABNORMAL) Hemoglobin A1c (02/27/2024 5:59 AM CDT) Hgb A1C 7.5(H) 4.0 - 5.6 % Estimated Average Glucose 169 mg/dL [place] Comment: The ADA recommends reporting an estimated Average Glucose (eAG) with all Hemoglobin A1c results using the equation derived from a study of 507 normal and diabetic adults. Minority populations were underrepresented and children were not included. (Diabetes Care 31:2842-9758, 2008). The eAG is not equivalent to a fasting glucose. Blood 02/27/2024 5:59 AM CDT 02/27/2024 7:11 AM CDT Asif Delgadillo MD LAB BLOOD ORDERABLES Final Re sult Performing Organization Address City/[facility]/ZIP Co de Phone Number [facility] [address] Department [place] [address] * Hepatitis panel, acute (05/08/2022 3:59 PM [employer] WARDEN) Hep A IgM Nonreactive Nonreactive [facility] Comment: Interpretive Data: If Hep A IgM Ab is reported as Equivocal, a new sample should be drawn in two weeks for testing. Current interpretive data was last revised on 19. Hep B core IgM Nonreactive Nonreactive [facility] Comment: Interpretive Data If HepB Core IgM Ab is reported as Equivocal, a new sample should be drawn in two weeks for testing. Current interpretive data was last revised on 19. Hep C Ab Nonreactive Nonreactive [facility] Comment: Interpretive Data Nonreactive: Antibodies to HCV [...] last revised on 2019. HepBsAg Nonreactive Nonreactive [facility] Blood 05/08/2022 3:59 PM [employer] GAME WARDEN 05/08/2022 3:59 PM [employer]EN us Mellissa Garcia DO LAB MICROBIOLOGY - GENERAL ORD ERABLES Final Result Performing Organization Address City/[facility]/ZIP Co de Phone Number [facility] [address] Department [place] [address] from Last 3 Months or Most Recently Relevant to Health Maintenance
--- OUTSIDE RECORDS SUMMARY | 2024-09-01 18:39 | XMS_ITS | Clinical Summary ---
Author Organization [facility] [employer] Address [address] [place] [address] Care Team Providers Care Crop Research Scientist Name Role Phone Rikki Amezquita MD Primary Care Provider [phone] [facility] [employer],non-owned Affiliates and Associated Physician Practices is amultiple site organization consisting of ambulatory clinics and hospital sitesin [place], [place], [place] and [place]. This disclosure is being madepursuant to the Care Everywhere program and may not contain all information available regarding this patient. Last updated 18.[facility] [employer] Allergies Active Allergy Reactions Criticality Noted Date Comments Diphenhydramine Other Low 03/09/2022 Restless legs Hmg-Coa-R Inhibitors Myalgias Medium 07/24/2022 Statins Nickel Rash Medium 03/15/2022 Nifedipine Other Medium 03/15/2022 Other reaction(s): Chest tightness Sulfa Antibiotics Urticaria Medium 03/09/2022 Medications * Be aware that medications may not be up to date on this document. Alwaysverify current medications with the patient. amiodarone (Cordarone) 200 MG tablet Take 1 (one) tablet by mouth at bedtime 3 Active Eliquis 5 MG tablet Take 1 (one) tablet by mouth 2 times daily 3 Active Lantus SoloStar pen 28 (twenty eight) Units at bedtime 3 Active rOPINIRole (Requip) 0.25 MG tablet Take 1 (one) tablet by mouth 2 times daily 3 Active metoprolol succinate XL 24hr (Toprol XL) 50 MG tablet Take 1 (one) tablet by mouth every morning 3 Active levothyroxine (Synthroid) 200 MCG tablet Take 1 (one) tablet by mouth daily before breakfast 3 Active calcium acetate (Phoslo) 667 MG capsule Take 1 (one) capsule by mouth 2 times daily 3 Active albuterol HFA (Proventil; Ventolin; Proair) 108 (90 Base) MCG/ACT inhaler Inhale 1 (one) puff by mouth 2 Active insulin aspart (NovoLOG PENFILL) cartridge Inject subcutaneously as directed SS with meals Active furosemide (Lasix) 80 MG tablet Take 1 (one) tablet by mouth once daily 3 Active Spiriva HandiHaler 18 MCG inhalation capsule 3 Active albuterol-ipra tropium (Duo-Neb) 0.5-2.5 (3) MG/3ML nebulizer solution USE 3 ML IN NEBULIZER EVERY 4 HOURS NEEDED FOR SHORTNESS OF BREATH FOR WHEEZING 3 Active acetaminophen (Tylenol) 500 MG tablet Take 1 (one) tablet by mouth every 6 hours as needed for Fever or Pain Maximum allowable Acetaminophen amount = 4 Grams (4000 mg) / 24 hours. 0 3 Active ALPRAZolam (Xanax) 0.25 MG tablet 3 Active gabapentin (Neurontin) 600 MG tablet Take 1 (one) tablet by mouth at bedtime 3 Active gabapentin (Neurontin) 600 MG tablet Take [...] fluticasone propionate (Flonase) 50 MCG/ACT nasal spray [place] 2 (two) sprays into the nose once daily Active LORazepam (Ativan) 0.5 MG tablet 1 (one) tablet by Enteral route every 8 hours as needed Active nystatin (Mycostatin) 833150 UNIT/GM powder Apply 1 Application to affected area 2 times daily Active traZODone (Desyrel) 50 MG tablet Take 0.5 (one-half) tablet by mouth 2 times daily 4 Active Active Problems Problem Noted Date Diagnosed [...] Comments Blood Pressure 172/69 03/25/2024 3:30 PM PRODUCT SUPPORT CONSULTANT Pulse 55 03/25/2024 3:30 PM PRODUCT SUPPORT CONSULTANT Temperature 36.4 C (97.5 F) 03/25/2024 3:03 PM PRODUCT SUPPORT CONSULTANT Respiratory Rate 9 03/25/2024 3:30 PM PRODUCT SUPPORT CONSULTANT Oxygen Saturation 97% 03/25/2024 3:30 PM PRODUCT SUPPORT CONSULTANT Inhaled Oxygen Concentration 40% 04/12/2022 3 :16 PM PRODUCT SUPPORT CONSULTANT Weight 120.2 kg (265 lb) 10/31/2023 10:07 AM CDT Height 157.5 cm (5' 2 ) 10/31/2023 10:07 AM CDT Body Mass Index 48.47 10/31/2023 10:07 AM CDT Plan of Treatment Upcoming Encounters Date Type Department Care Team (Late st Contact Info) Description 09/18/2024 1:[address] [facility] Health Vascular Services [address], [address] [place], [place] [id number] [place] [address] [place] [address] [place] [address] [place] [address] [place] [address] [place] [address] Health Maintenance Due Date Last Done Comments BONE DENSITY TESTING 1950 COLOGUARD (AGES 45-75) - COLON CA SCREENING 1948 COLON MONITORING 1948 COLONOSCOPY - COLON CA SCREENING 1948 CT COLONOGRAPHY - COLON CA SCREENING 1950 Colorectal Cancer Screening 1948 FIT - COLON CA SCREENING 1948 FLEX SIG - COLON CA SCREENING 1948 MAMMOGRAM 1950 MEDICARE AWV 12 MONTHS 1948 DTAP/TDAP/TD VACCINES (1 - Tdap) 12/27/1967 PNEUMOCOCCAL VACCINE 50+ (1 of 2 - PCV) 12/27/1967 HEPATITIS B VACCINE (1 of 3 - Risk Dialysis 4-dose series) 1968 ZOSTER VACCINE (1 of 2) 1998 Respiratory Syncytial Virus (RSV) Vaccine Pt: or over 60 yrs (1 - 1-dose 75+ series) 12/27/2023 COVID-19 VACCINE (2 - 2023- season) 2024 05/26/2020 DEPRESSION SCREENING 05/07/2024 INFLUENZA VACCINE (Season Ended) 2025 03/07/2022, 02/04/2021 HEPATITIS C SCREENING Completed 03/03/2024 , 02/26/2024, 02/26/2024, Additional history exists HIB VACCINE Aged Out No longer eligi ble based on patient's age to complete this topic HPV VACCINE Aged Out No longer eligi ble based on patient's age to complete this topic MENINGOCOCCAL (Group B) VACCINE SHARED DECISION-MAKING Aged Out No longer eligible based on patient's age to complete this topic MENINGOCOCCAL GROUPS A/C/Y/W VACCINE Aged Out No longer eligible based on patient's age to complete this topic Insurance MEDICARE [facility] MEDICARE Advance Directives * Full Code (Latest Code Status on File) Date Activated Date Inactivated Comments 05/14/2022 8:26 AM 05/28/2022 12:06 PM Care Teams Crop Research Scientist Relationship Specialty Start Date End Date Rikki Amezquita MD [address] [place] [address] PCP - General 11/28/21
--- OUTSIDE RECORDS SUMMARY | 2024-09-01 18:39 | XMS_ITS | Clinical Summary ---
Author Organization [facility] Address [address] [place] [address] Care Team Providers Care Fresh Work Inspector Name Role Phone [facility] Rostovclaribel [...] Comments Blood Pressure 129/59 05/28/2022 8:00 AM GEOSPATIAL IMAGERY INTELLIGENCE ANALYST Pulse 76 05/28/2022 8:00 AM GEOSPATIAL IMAGERY INTELLIGENCE ANALYST Temperature 36.7 C (98 F) 05/28/2022 8:00 AM GEOSPATIAL IMAGERY INTELLIGENCE ANALYST Respiratory Rate 20 05/28/2022 8:00 AM GEOSPATIAL IMAGERY INTELLIGENCE ANALYST Oxygen Saturation 96% 05/28/2022 8:00 AM GEOSPATIAL IMAGERY INTELLIGENCE ANALYST Inhaled Oxygen Concentration - - Weight 111.6 kg (246 lb) 05/28/2022 6:37 AM GEOSPATIAL IMAGERY INTELLIGENCE ANALYST Height 162.6 cm (5' 4 ) 05/13/2022 5:19 PM GEOSPATIAL IMAGERY INTELLIGENCE ANALYST Body Mass Index 42.23 05/13/2022 5:19 PM GEOSPATIAL IMAGERY INTELLIGENCE ANALYST Plan of Treatment Health Maintenance Due Date [...] 6:45 PM 05/13/2022 6:03 PM Care Teams Fresh Work Inspector Relationship Specialty Start Date End Date Amezquita [facility] [address] [place] [address] (work) PCP - General 05/14/22
--- OUTSIDE RECORDS SUMMARY | 2024-09-01 18:39 | XMS_ITS | Clinical Summary ---
Author Organization [facility] Address [address] [address] Phone Care Team Providers Care [employer] Member Name Role Phone Rikki Amezquita MD Primary Care Provider Allergies Active Allergy Reactions Criticality Noted Date Comments Diphenhydramine 03/09/2022 Restless legs Nickel Rash Medium 03/15/2022 Nifedipine Medium 03/15/2022 Other reaction(s): Chest tightness Sulfa Antibiotics Hives 03/09/2022 Medications Ventolin HFA 108 (90 Base) MCG/ACT inhaler 2 Active clopidogrel (PLAVIX) 75 MG tablet 2 Active Fluticasone-Ume clidin-Vilant (Trelegy Ellipta) 200-62.5-25 MCG/ACT aerosol powder INHALE 1 PUFF ONCE DAILY 2 Active gabapentin (NEURONTIN) 300 MG capsule Take 300 mg by mouth in the morning and 300 mg before bedtime. 2 Active BD Veo Insulin Syringe U/F 31G X 15/64 1 ML misc USE WITH INSULIN (LANTUS) INJECTION ONCE DAILY 2 Active ipratropium-alb uterol (DUO-NEB) 0.5-2.5 mg/3 mL nebulizer solution USE 3 ML IN NEBULIZER EVERY 8 HOURS NEEDED FOR SHORTNESS OF BREATH OR WHEEZING 2 Active Synthroid 175 MCG tablet 2 Active montelukast (SINGULAIR) 10 MG tablet 2 Active pantoprazole (PROTONIX) 40 MG EC tablet 2 Active Xarelto 20 MG tablet TAKE 1 TABLET BY MOUTH ONCE DAILY WITH EVENING MEAL 2 Active traMADol (ULTRAM) 50 MG tablet 2 Active verapamil ER (VERELAN) 360 MG 24 hr capsule 2 Active cyclobenzaprine (FLEXERIL) 10 MG tablet Take 10 mg by mouth 3 (three) times a day if needed Active Cholecalciferol (Vitamin D) 50 MCG (1999 UT) capsule Take by mouth Active ALPRAZolam (XANAX) 0.5 MG tablet Take 0.5 [...] Hypothyroidism 12/31/2012 Overview (03/15/2022): HYPOTHYROIDISM NOS Immunizations Immunization Administration Dates Next Due Influenza TIV (IM) 03/07/2022 Influenza, Unspecified 02/04/2021 Pneumococcal Conjugate 01/06/2016 Social History Tobacco Use Types Packs/Day Years Used Date Smoking Tobacco: Former Cigarettes Smokeless Tobacco: Never Tobacco Cessation:Counseling Given: Not Answered Alcohol Use Standard Drinks/Week Comments Yes 0 (1 standard drink = 0.6 oz pur e alcohol) rare Comments Unknown Sex and Gender Information Value Date Recorded Sex Assigned at Not on file Legal Sex Female 10:48 AM MDT Gender Identity Not on file Sexual Orientation [...] Medium Risk (1 of 4 - PCV) 1998 Influenza Vaccine (Season Ended) 2025 03/07/20, 02/04/2021 Insurance MEDICARE MEDICARE [facility] MEDICARE [facility] MEDICARE [facility] Member Subscriber Plan / Payer (Ef fective 2024-Present) Name:Gregoria Rae Relation to Subscriber:Self Name:Gregoria Rae Subscriber ID:Not on file Payer ID:[id number] Group ID:Not on file Type:Not on file Address: [place] [id number] Care Teams [employer] Member Relationship Specialty Start Date End Date Rikki Amezquita MD [address] [facility] [address] [facility] [address] [place] [address] PCP - General Internal Medicine 03/07/22
--- OUTSIDE RECORDS SUMMARY | 2024-09-01 18:39 | XMS_ITS | Patient Health Record ---
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 (096915777343865) 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) Active confirmed Problem [id number] Essential (primary) hypertension (I10) Active confirmed Problem 920132586 Chronic kidney disease, stage 3a (N18.31) Active [...] Coverage End Date Medicare [place] [address] [address] [place] [address] [phone] [id number] Gregoria Rae Self - patient is the insured [facility] [address] [place] [address] [id number] Gregoria Rae Self - patient is the insured Medical (General) History Medical History History ICD Code restless leg syndrome DM HTN CKD Surgical History Surgery Date(Month/Year) thryoidectomy cholecystectomy
--- OUTSIDE RECORDS SUMMARY | 2024-09-01 18:39 | XMS_ITS | Clinical Summary ---
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 Role Phone Unavailable Primary Care Provider [...] Td Vaccines ( 1 - Tdap) 12/27/1967 Pneumococcal Vaccine: 50+ Ye ars (1 of 1 - PCV) 1998 Zoster Vaccines (1 of 2) 1998 Dexa Scan (General) 2013 RSV Immunization or 60+ Years (1 - 1-dose 75+ series) 12/27/2023 COVID-19 Vaccine ( - 2023-2 5 season) 2024 Meningococcal B Vaccine Aged Out No l onger eligible based on patient's age to complete this topic Meningococcal Vaccine Aged Out No clarisa penelope eligible based on patient's age to complete this topic RSV Immunizations Under 20 Months Aged Out No longer eligible based on patient's age to complete this topic
--- OUTSIDE RECORDS SUMMARY | 2024-09-01 18:39 | XMS_ITS | Encounter Summary ---
Author Organization [facility] Address [address] [place] [address] Care Team Providers Care Rehab Specialist Name Role Phone Rikki Amezquita MD Primary Care Provider [phone] Encounter Details Date Type Department Care Team (Latest Contact Info) Description 05/13/2022 3:00 PM UNDERWRITER Hospital Encounter [address] [address] Allison Patrick MD [facility] [...] Info) Description 09/18/2024 1:45 PM CDT Appointment [facility] [address] [facility], [address] [place] [address] [place] [address] [address] [place] [address] [address] [place] [address] [facility] [address] [place] [address] documented as of this encounter Visit Diagnoses Not on filedocumented in this encounter Additional Health Concerns Infection Onset Date Last Indicated Resolved Time CDIFF Under Investigation 05/23/2022 05/23/2022 8:26 AM UNDERWRITER COVID-19 Under Investigation 05/27/2022 05/27/2022 05/27/2022 11:54 PM UNDERWRITER documented as of this encounter Care Teams Rehab Specialist Relationship Specialty Start Date End Date Rikki Amezquita MD [address] [place] [address] PCP - General 11/28/21 documented as of this encounter
[2024-09-01 18:40] LABS: Partial Thromboplastin Time 27.3 Seconds (22.3-36.8)
[2024-09-01 18:41] LABS: Alanine Aminotransferase 14 U/L (6-35); Albumin Level 3.6 g/dL (3.5-5.1); Alkaline Phosphatase 125 U/L (38-126); Anion Gap 6 mmol/L (4-12); Aspartate Amino Transferase 24 U/L (14-36); Bilirubin,Total 0.5 mg/dL (0.2-1.3); Blood Urea Nitrogen 21 mg/dL (7-17); Calcium 8.2 mg/dL (8.4-10.2); Carbon Dioxide 37 mmol/L (22-30); Chloride 93 mmol/L (98-107); Creatine Kinase 49 U/L (30-135); Estimated Glomerular Filt Rate 14; Glucose 368 mg/dL (65-110); Potassium 3.7 mmol/L (3.4-5.0); Sodium 136 mmol/L (137-145)
[2024-09-01 18:42] LABS: Lactic Acid Reflex 2.3 mmol/L (0.7-2.0)
[2024-09-01 18:47] LABS: Add Urine Microscopic? YES; Appearance Urine Turbid (Clear); Bacteria Urine 4+ /hpf; Bilirubin Urine Negative (Negative); Blood Urine 1+ (Negative); Color Urine Yellow (Yellow); Glucose Urine UA Negative (Negative); Ketones Urine Negative (Negative); Leukocyte Esterase Ur 3+ LEU/UL (Negative); Need Manual Microscopic Reviewed; Nitrate Urine Negative (Negative); Protein Urine 3+ mg/dL (Negative); Specific Grav Ur 1.011 (1.001-1.035); Squamous Epithelial Cell Urine None Seen /hpf (Few); Urobilinogen Urine 0.2 mg/dL (<2.0); WBC Urine >100 /hpf (0-3); pH Urine 8.5 (5.0-9.0)
[2024-09-01 18:53] LABS: Troponin I 0.019 ng/mL (0.000-0.034)
[2024-09-01 19:46] LABS: Free T4 Free Thyroxine Reflex 2.95 ng/dL (0.78-2.19)
[2024-09-01 20:26] LABS: Reflex Lactic Acid Yes or No Add Lactic
[2024-09-01 21:08] LABS: Lactic Acid 1.6 mmol/L (0.7-2.0)
--- NOTE | 2024-09-01 23:26 | ADMGEN ---
This patient, Gregoria Rae, was admitted to 2 Medical Room 242-. Patient/family oriented to hospital policies and general routines including ID bracelet, bed and alarms, visiting hours, pain management, procedures, bathroom and other care routines, personal items, smoking policy, room service/diet, and visiting hours. Information on how to activate the Rapid Response Team has been discussed. Patient/Family are encouraged to report perceived risks to care and to ask questions if they do not understand what they are told or what they should do.
[2024-09-02] VITALS (8 sets, daily range): BP systolic 145–171; BP diastolic 47–95; PULSE 55–77; RESP 14–20; TEMP 36.3–36.7; O2SAT 94–99
[2024-09-02 00:51] LABS: Glucose Point of Care 248 mg/dl (65-105)
[2024-09-02] MEDS: rOPINIRole HCL 0.5 MG TABLET PO ×3 (01:00→20:06)
[2024-09-02] MEDS: INSULIN GLARGINE (*BKC) 100 UNITS/ML 15 UNITS SUB-Q (01:04)
[2024-09-02 01:35] LABS: MRSA (PCR) NOT DETECTED (NOT DETECTE)
[2024-09-02] MEDS: ACETAMINOPHEN 325 MG TABLET 650 MG PO (02:43)
--- NOTE | 2024-09-02 02:43 | P.HP_ITS ---
H&P: HPI History of Present Illness Date/Time: 09/02/24 02:43 Chief Complaint: Not acting like herself Narrative: 73-year-old female well known to the hospitalist service due to prior admissions with a complex past medical history including but not limited to end-stage renal disease on hemodialysis Sunday, insulin-dependent diabetes mellitus, obstructive sleep apnea, COPD, grade 2 diastolic dysfunction, COVID with acute respiratory failure requiring tracheostomy subsequent and removal who presented to the ER from home is when her called EMS because he felt she was not acting like herself. The patient is only alert oriented x1 since her acute stroke in December 2023. The patient had had dialysis and they stop at [facility]. They returned home and her went and took a nap. When he got up he found the patient standing in the kitchen leaning against the counter staring straight ahead and would not respond to him. He are so thought that she was weaker even when they stopped at the restaurant to eat. She usually ambulates with a walker but she was refusing to use her walker and was refusing help from her . Daughter also states that the patient has been randomly saying words in talking. She is wondering if the patient may be hallucinating. Her when she arrived to the ER she was found have dried stool on her buttocks. Her daughter who was in ICU nurse at our facility was at bedside and provided the history. She reports that the patient does still urinate a couple times a day. She does have episodes of urinary incontinence. A daughter reports that her urine is always strong smelling and dark in color. She has noticed that the patient is also been having incontinence of stools. She is not sure if this is due to diarrhea or if she is actually does not aware and having fecal incontinence. She also does not know of some of the stool that is being noted may be because the patient is just not able to clean herself up as well as previous. Patient has not had any known fevers. Patient has expressive aphasia and will occasionally randomly stated clear sentences. When I walked into the room she said ?hi doc? and when I went to leave the room she echoed what her daughter had stated to me in [place]. But her daughter states that the patient usually just makes a lot of nonsensical sounds. She will randomly state say yes or no. Sometimes her responses are correct and other times she would just say yes out of nowhere when not being asked a question. Patient has not had any nausea or vomiting. There has been no significant change in her appetite. She usually eats twice a day. Daughter is unsure what her glucoses have been running because her father usually keeps track of that. When the patient arrived to the ER she was hyperglycemic with glucoses in the 300s. She had not yet received her evening Lantus. The patient does at times have difficulty following commands which is her baseline. She has mild facial droop at baseline and mild decreased strength on the right upper and lower extremity due to stroke. Her daughter states she also still has some residual right-sided neglect in her visual elizondo and processing. 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 Paroxysmal atrial fibrillation Bilateral primary osteoarthritis of knee Renal osteodystrophy DVT of lower extremity (deep venous thrombosis) Asthma-COPD overlap syndrome Left-sided cerebrovascular accident (CVA) (01/04/24) With residual left-sided visual neglect, profound expressive aphasia and right-sided hemiplegia ESRD on hemodialysis (02/17/22) Chronic anticoagulation Obstructive sleep apnea Hypothyroidism Insulin dependent type 2 diabetes mellitus Generalized anxiety disorder Chronic obstructive pulmonary disease Chronic diastolic (congestive) heart failure Coronary artery disease involving standing rock heart without angina pectoris Depression GERD without esophagitis Peripheral polyneuropathy Surgical History Surgical History (Updated 09/02/24 @ 04:12 by Gwen Jaimes DO) History of tracheostomy (04/24/22) With subsequent removal History of cataract extraction History of tonsillectomy History of cholecystectomy History of gastrostomy tube placement and removal Family History Family History Father Hypertension Family history of coronary artery disease Sibling Hypertension Family history of coronary artery disease Mother Cerebrovascular accident Other Asthma Depression Family history of Alzheimer's disease Family history of arthritis Family history of cardiovascular disease Family history of lymphoma Family history of obesity Family history of seizure disorder Social History Social History Social History: Surrogate medical decision maker: Anjum (spouse) or Gwen (daughter) Kyra. Code status: Full code. Smoking packs per day: 2 Smoking cigarettes per day: 40.0 Years smoked: 30 Smoking pack-years: 60.00 Smoking status: Former smoker Tobacco type: cigarettes Second hand tobacco smoke exposure: No Smoking end date: 05/07/89 Alcohol intake: never Alcohol use details: special occasions Substance use: never Substance use type: marijuana Last use: 01/05/23 Do You Feel Safe in your Home?: Yes Lack of Transportation: No Lack of Food: Never True Current Housing: I Have Housing Concerned About Future Housing: No Difficulty Paying Gas/Electric Bills: No Difficulty Paying for Meds: No Currently Unemployed: No Education: High School Diploma/GED Difficulty w/ Childcare or Family Care: No Living arrangements: with family Occupation/Education: retired Spiritual care concerns: No Meds Home Medications and Allergies Home Medications ?Medication ?Instructions ?Recorded ?Confirmed ?Type fluticasone propionate 50 2 spray intranasal DAILY 03/19/19 09/01/24 History mcg/actuation nasal spray,suspension albuterol sulfate 2.5 mg/3 mL 2.5 mg (3 mL) inhalation Q4-6H PRN 07/10/23 09/01/24 Rx (0.083 %) solution for nebulization shortness of breath or wheezing #90 mL Ventolin HFA 90 mcg/actuation See Rx Instructions .Route 05/20/24 09/02/24 Rx aerosol inhaler (albuterol sulfate) .COMPLEX #18 grams insulin aspart U-100 100 unit/mL See Rx Instructions .Route .COMPLEX 05/20/24 09/02/24 History (3 mL) subcutaneous pen (Novolog FlexPen U-100 Insulin aspart) metoprolol succinate 50 mg 50 mg PO QAM #90 tabs 05/20/24 09/01/24 Rx tablet,extended release 24 hr atorvastatin 20 mg tablet (Lipitor) 20 mg PO HS #90 tabs 07/04/24 09/01/24 Rx lorazepam 0.5 mg tablet (Ativan) 0.5 mg PO DAILY PRN anxiety 07/04/24 09/02/24 History montelukast 10 mg tablet 10 mg PO DAILY #90 tabs 07/04/24 09/01/24 Rx levothyroxine 175 mcg tablet 175 mcg PO DAILY #90 tabs 07/07/24 09/01/24 Rx budesonide-formoterol HFA 160 2 puff inhalation Q12H #10.2 grams 07/17/24 09/01/24 Rx mcg-4.5 mcg/actuation aerosol inhaler trazodone 50 mg tablet 50 mg PO QHS #30 tabs 07/24/24 09/01/24 Rx apixaban 2.5 mg tablet (Eliquis) See Rx Instructions PO .COMPLEX 07/29/24 09/01/24 Rx #180 tabs amiodarone 200 mg tablet 200 mg PO QAM 09/02/24 09/01/24 History insulin glargine 100 unit/mL (3 18 unit subcut QPM 09/02/24 09/01/24 History mL) subcutaneous pen (Lantus Solostar U-100 Insulin) ropinirole 2 mg tablet 0.5 mg PO Q12H 09/02/24 09/01/24 History Allergies Allergy/AdvReac Type Severity Reaction Status Date / Time nickel Allergy Intermediate hives and Verified 06/12/24 13:35 itchy rash Sulfa (Sulfonamide Allergy Intermediate Urticaria Verified 06/12/24 13:35 Antibiotics) and hives Calcium Channel Blocking AdvReac Intermediate STATES Verified 06/12/24 13:35 Agents-Dih CANNOT TAKE SINCE SHE HAS ASTHMA diphenhydramine AdvReac Intermediate restless Verified 06/12/24 13:35 legs nifedipine AdvReac Intermediate palpitation Verified 06/12/24 13:35 s [id number]-[id number]-[id number] Reductase AdvReac Intermediate muscle Verified 06/12/24 13:35 Inhibitor (Pqrhnid-Sdp-Yer cramps Reductase Inhibitor) Vital Signs Vital Signs - 24 hr 09/01/24 18:07 09/01/24 18:08 09/01/24 19:28 Temperature 97.8 F Pulse Rate 69 68 Respiratory Rate 14 16 Blood Pressure 146/67 H 133/66 Pulse Oximetry 98 97 97 Oxygen Delivery Room Air 09/01/24 20:45 09/01/24 22:41 09/01/24 22:49 Temperature Pulse Rate 66 71 75 Respiratory Rate 17 Blood Pressure 133/79 197/72 H 180/77 H Pulse Oximetry 97 Oxygen Delivery 09/01/24 22:51 09/01/24 23:30 09/01/24 23:34 Temperature 97.9 F Pulse Rate 86 74 Respiratory Rate 20 Blood Pressure 163/77 H 192/67 H Pulse Oximetry 94 Oxygen Delivery Room Air Exam 2 Narrative: Weight 82.9 kg BMI 30.4 Const: Other: No acute distress, well-developed well-nourished, appears stated age HENMT: Other: Mucous membranes are tacky, no oral pharyngeal erythema, head is normocephalic atraumatic, mild right facial droop, mild left tongue deviation Eyes: Other: Pupils are equal and reactive, no scleral icterus, positive conjunctival pallor Neck: Other: No JVD, no lymphadenopathy Resp: Other: Clear to auscultation bilaterally, no increased work of breathing Cardio: Other: Regular rate, regular rhythm, 2+ bilateral pedal pulses, 2+ right radial pulse GI: Other: Soft, nontender, nondistended, positive bowel sounds : Other: Incontinent of urine Skin: Other: Scab to the top of the 2nd toe that is been present since the patient's stroke and is been slow in healing, no evidence of erythema or infection, no large areas of bruising, no pallor, non jaundice, normal temperature to touch Neuro: Other: Alert orient x1, right facial droop, normal muscle tone bilateral upper and lower extremities, but decreased strength of right human services case manager minimal compared to left, patient is unable to follow commands for repeat evaluation of extraocular movements, pupils are equal and reactive, patient is occasionally able to echo responses, she answers questions yes and no although accuracy answers is difficult to ascertain, she also has production of nonsensical sounds when she tries to answer questions. All of these are chronic findings since the patient's stroke Extrem: Other: No clubbing, no cyanosis no edema, upper extremity AV fistula Psych: Other: Pleasant and cooperative but confused H&P: Results Labs Labs: Laboratory Tests 09/01/24 18:21 09/01/24 18:21 09/01/24 09/01/24 09/01/24 18:21 20:47 23:53 WBC 7.5 RBC 3.44 L Hgb 10.0 L Hct 32.6 L MCV 94.8 MCH 29.1 MCHC 30.7 L RDW 14.9 H Plt Count 296 MPV 10.6 H Immature Gran % (Auto) 0.3 Neut % (Auto) 67.5 Lymph % (Auto) 15.4 L [place] % (Auto) 10.1 H Eos % (Auto) 5.5 H Baso % (Auto) 1.2 Lymph # (Auto) 1.16 [place] # (Auto) 0.8 H Eos # (Auto) 0.4 H Baso # (Auto) 0.1 Abs Immat Gran (auto) 0.02 Absolute Neuts (auto) 5.1 Absolute Nucleated RBC 0.000 Nucleated RBC % 0.0 PT 13.7 INR 1.0 APTT 27.3 Sodium 136 L Potassium 3.7 Chloride 93 L Carbon Dioxide 37 H Anion Gap 6 BUN 21 H Creatinine 3.18 H Estim Creat Clear Calc Not Reportable Estimated GFR 14 L Glucose 368 H POC Capillary Glucose Lactic Acid 2.3 H 1.6 Calcium 8.2 L Total Bilirubin 0.5 AST 24 ALT 14 Alkaline Phosphatase 125 Total Creatine Kinase 49 Troponin I 0.019 Total Protein 7.0 Albumin 3.6 TSH (Reflex) 6.030 H Free T4 2.95 H Urine Color Yellow Urine Appearance Turbid H Urine pH 8.5 Ur Specific [place] 1.011 Urine Protein 3+ H Urine Glucose (UA) Negative Urine Ketones Negative Ur Blood (Man) 1+ H Urine Nitrate Negative Urine Bilirubin Negative Urine Urobilinogen 0.2 Add Ur Microanalysis Reviewed Leukocyte Esterase Rfl 3+ H Urine RBC 6-10 H Urine WBC >100 H Ur Squamous Epith Cells None seen Urine Bacteria 4+ Urine Casts 3-5 Nasal MRSA (PCR) Not detected 09/02/24 00:46 WBC RBC Hgb Hct MCV MCH MCHC RDW Plt Count MPV Immature Gran % (Auto) Neut % (Auto) Lymph % (Auto) [place] % (Auto) Eos % (Auto) Baso % (Auto) Lymph # (Auto) [place] # (Auto) Eos # (Auto) Baso # (Auto) Abs Immat Gran (auto) Absolute Neuts (auto) Absolute Nucleated RBC Nucleated RBC % PT INR APTT Sodium Potassium Chloride Carbon Dioxide Anion Gap BUN Creatinine Estim Creat Clear Calc Estimated GFR Glucose POC Capillary Glucose 248 H Lactic Acid Calcium Total Bilirubin AST ALT Alkaline Phosphatase Total Creatine Kinase Troponin I Total Protein Albumin TSH (Reflex) Free T4 Urine Color Urine Appearance Urine pH Ur Specific [place] Urine Protein Urine Glucose (UA) Urine Ketones Ur Blood (Man) Urine Nitrate Urine Bilirubin Urine Urobilinogen Add Ur Microanalysis Leukocyte Esterase Rfl Urine RBC Urine WBC Ur Squamous Epith Cells Urine Bacteria Urine Casts Nasal MRSA (PCR) Impressions Head CT 09/01/24 18:36 IMPRESSION: No acute intracranial process. Chest X-Ray 09/01/24 19:13 IMPRESSION: Pulmonary vascular congestion. Subsegmental left basilar atelectasis/consolidation. EKG:Test Date: 2024-09-01 19:18:34 Measurements Intervals [place] Rate: 67 P: 14 AR: 156 QRS: 41 QRSD: 110 T: 0 QT: 493 QTc: 524 Interpretive Statements SINUS RHYTHM INTRAVENTRICULAR CONDUCTION DELAY DELAYED PRECORDIAL R/S TRANSITION BORDERLINE ST-T WAVE ABNORMALITY- INF/LAT LEADS BASELINE ARTIFACT- I, II, III, AVR, AVL, AVF, V4-V5 PROLONGED QT INTERVAL ABNORMAL ECG Compared to ECG 12/25/2023 07:44:20 Prolonged QT interval now present Assessment and Plan Assessment and plan (1) UTI (urinary tract infection): Qualifiers: Hematuria presence: without hematuria Urinary tract infection type: a cute cystitis Qualified Code(s): N30.00 - Acute cystitis without hematuria Code(s): N39.0 - Urinary tract infection, site not specified Status: Acute Assessment and Plan: UA suggestive of UTI in specially in the setting of acute worsening mental status. Patient been started on empiric antibiotic therapy with Rocephin after review of prior cultures confirming pansensitive bacteria growth within the past 2 years. Blood cultures have also been obtained. (2) AMS (altered mental status): Qualifiers: Altered mental status type: unspecified Qualified Code(s): R41.82 - Altered mental status, unspecified Code(s): R41.82 - Altered mental status, unspecified Status: Acute Assessment and Plan: Difficult to assess degree of altered mental status due to patient's baseline communication deficits with prior CVA and expressive aphasia. But patient's behavior is definitely changed at home. Will treat underlying cause as discussed above. The patient's localizing neurologic deficits are at her baseline. CT without contrast performed in the ER did not demonstrate acute findings. No evidence of trauma. Acute intercranial process less likely. (3) Type 2 diabetes mellitus with hyperglycemia: Qualifiers: Diabetes mellitus mcfp insulin use: with intermediate project manager use Qualified Code(s): E11.65 - Type 2 diabetes mellitus with hyperglycemia; Z79.4 - senior living (current) use of insulin Code(s): E11.65 - Type 2 diabetes mellitus with hyperglycemia Status: Chronic Assessment and Plan: Patient has chronic diabetes with acute hyperglycemia. Likely secondary to underlying infection. Will resume patient's home Lantus and will add sliding scale insulin with Accu-Cheks a.c. HS and hypoglycemia protocol (4) Hypertension: Qualifiers: Hypertension type: unspecified Qualified Code(s): I10 - Essential (primary) hypertension Code(s): I10 - Essential (primary) hypertension Status: Chronic Assessment and Plan: Likely due to a combination of essential hypertension and possible exacerbation history of end-stage renal disease but patient did receive hemodialysis and does not appear to be overtly fluid overloaded. Will resume home antihypertensives and monitor. Will provide IV hydralazine as needed for systolic blood pressures greater than 180. (5) Pseudohyponatremia: Code(s): R79.89 - Other specified abnormal findings of blood chemistry Status: Acute Assessment and Plan: Due to hyperglycemia. Diabetes management as discussed above (6) Prolonged QT interval: Code(s): R94.31 - Abnormal electrocardiogram [ECG] [EKG] Status: Acute Assessment and Plan: No evidence of acute arrhythmia but QT prolongation noted on EKG. Will avoid QT prolonging medications. (7) ESRD on hemodialysis: Code(s): N18.6 - End stage renal disease; Z99.2 - Dependence on renal dialysis Status: Acute Assessment and Plan: Will consult Nephrology for hemodialysis Sunday (8) RLS (restless legs syndrome): Code(s): G25.81 - Restless legs syndrome Status: Acute Assessment and Plan: Will resume home Requip (9) Chronic anticoagulation: Code(s): Z79.01 - keno terminal operator (current) use of anticoagulants Status: Acute Assessment and Plan: Will continue home Eliquis (10) Hypothyroidism: Qualifiers: Hypothyroidism type: unspecified Qualified Code(s): E03.9 - Hypothyroidism, unspecified Code(s): E03.9 - Hypothyroidism, unspecified Status: Acute Assessment and Plan: Patient has an elevated TSH but T4 is also elevated. There is likely some component of euthyroid sick. Will continue home levothyroxine at current dosing. And recommend repeat labs to re-evaluate in 4-6 weeks once acute illness has resolved. Plan Patient has been admitted as observation status. Quality VTE Prophylaxis VTE prophylaxis: pharmacologic ordered (Continue home Eliquis.) Hospitalist MIPS Advance Care Plan I have confirmed that the patient's Advanced Care Plan is present, code status is documented, or surrogate decision maker is listed in patient medical record.: Yes Medication Reconciliation I have utilized all available resources to obtain, update and review the patients current medications (includes all prescriptions, OTC, herbals, cannabis, and nutritional supplements).: Yes
[2024-09-02 07:42] LABS: Glucose Point of Care 147 mg/dl (65-105)
[2024-09-02] MEDS: FLUTICASONE/SALMETEROL 115-21 MCG INHALER 1 PUFF 2 PUFF INHALATION ×2 (08:33→21:01)
[2024-09-02] MEDS: APIXABAN 2.5 MG TABLET PO ×2 (08:59→20:06)
[2024-09-02] MEDS: METOPROLOL SUCCINATE EXT REL 50 MG TABCR PO (08:59)
[2024-09-02] MEDS: AMIODARONE HCL 200 MG TABLET PO (09:00)
[2024-09-02] MEDS: LEVOTHYROXINE SODIUM 100 MCG, LEVOTHYROXINE SODIUM 75 MCG 175 MCG PO (09:00)
[2024-09-02] MEDS: MONTELUKAST SODIUM 10 MG TABLET PO (09:00)
[2024-09-02] MEDS: FLUTICASONE PROPIONATE 0.05% NA SPR 16 GM BTL (*BKC) 2 SPRAY NASAL (09:03)
--- NOTE | 2024-09-02 11:35 | P.CONNP_ITS ---
Assessment and Plan Assessment and plan (1) End stage renal disease: Code(s): N18.6 - End stage renal disease Status: Acute Assessment and Plan: * HD tomorrow * continue M/W/ outpatient dialysis schedule * follow electrolytes, volume status, and clearance (2) AMS (altered mental status): Qualifiers: Altered mental status type: unspecified Qualified Code(s): R41.82 - Altered mental status, unspecified Code(s): R41.82 - Altered mental status, unspecified Status: Acute Assessment and Plan: * difficult to assess degree of altered mental status due to patient's baseline communication deficits from previous CVA and expressive aphasia * however, family reports her behavior has change at home * possibly secondary to UTI??? * CT of head negative for acute patholgy * follow mentation... (3) UTI (urinary tract infection): Code(s): N39.0 - Urinary tract infection, site not specified Status: Resolved Assessment and Plan: * admission UA highly suggestive * follow culture data * on antibiotics (4) Anemia: Code(s): D64.9 - Anemia, unspecified Status: Chronic Assessment and Plan: * due to ESRD * Epogen with HD * follow trend of H/H (5) Hypertension: Qualifiers: Hypertension type: unspecified Qualified Code(s): I10 - Essential (primary) hypertension Code(s): I10 - Essential (primary) hypertension Status: Chronic Assessment and Plan: * reasonable control at this time * follow trend of hemodynamics (6) Type 2 diabetes mellitus with hyperglycemia: Qualifiers: Diabetes mellitus intermediate designer insulin use: with residential use Qualified Code(s): E11.65 - Type 2 diabetes mellitus with hyperglycemia; Z79.4 - intermediate (current) use of insulin Code(s): E11.65 - Type 2 diabetes mellitus with hyperglycemia Status: Chronic Assessment and Plan: * follow accu-cheks * glycemic control per hospitalists. I will continue follow the patient with you while she remains hospitalized and make further recommendations as deemed necessary. Thank you for allowing me to participate in care this patient. L History of Present Illness Reason for Consult Consult date: 09/02/24 Reason for consult: end stage renal disease Chief Complaint Chief complaint: Ams, UTI, Weakness, ESRD on HD History of Present Illness Narrative: The patient is a 73-year-old female Pap medical history as outlined below presented to [facility] Emergency room with altered mental status. At baseline, patient is alert oriented x1 secondary to her acute stroke in December of 2023. She had her scheduled dialysis treatment yesterday and her and herself stopped at a local fast food restaurant for a meal. They returned home and her took a nap and when he got up, he found the patient standing in the kitchen lean against the counter staring straight ahead and was not responsive to him. She is usually able to ambulate with a walker at baseline but more recently, she has been refusing to use her walker and refusing help from her .. Her daughter also states that she has been randomly stating words and talking without any purpose as well. Her daughter also reports that she is having issues and problems with urinary and stool incontinence as well. Assessing her mental state is somewhat difficult at times due to her expressive aphasia secondary to the acute stroke as mentioned. According to her family, there have been no reported issues or problems with fevers, chills, nausea, vomiting, dizziness, lightheadedness, palpitations, or poor appetite. Given the recent events yesterday after dialysis and the constellation of symptoms as mentioned, she was brought to the emergency room for further assessment. Workup and evaluation emergency room demonstrated the patient be hemodynamically stable and afebrile. Routine labd work noted a CBC w/o leukocytosis, stable H&H, and a CMP consistnet with her known history of end-stage renal disease. Further testing noted blood glucose 368, lactic acid 2.3 with normalization w/o specific intervention, normal LFTs, normal CPK and a troponin within normal range. EKG with prolonged QT, nonspecific ST changes. Her TSH was elevated to 6.03 with free T4 also elevated. UA does appear infectious with 3+ leuk esterase, greater than 100 WBC, 4+ urine bacteria. CT brain is unremarkable. Chest x-ray with some pulmonary vascular congestion but no focal consolidation. After appropriate cultures were obtained, IV antibiotics were initiated for her presumed urinary tract infection and she was subsequently admitted to the hospital for further evaluation and therapy. Since her admission, she appears to be in no apparent distress. Her was at bedside at the time of my visit and is quite concerned by how confused and weak she was and is concerned that he may not be able to take care of her at home. Renal consultation was requested due to her end-stage renal disease. The patient normally dialyzes on a Sunday, Sunday, Sunday schedule at [facility] under the care of Dr. Jame Dumont. From a dialysis perspective, she has been doing reasonably well and compliant with her treatments. In the past, she has had issues and problems with significant fluid gains in between her dialysis treatments but this appears to have stabilized in the last year. Her last dialysis treatment was yesterday at her outpatient dialysis clinic and she is due for dialysis tomorrow. Currently, at the time my visit, she is resting comfortably in no apparent distress. Review of Systems 2 Review of Systems: As per HPI. [facility] Past Medical History Medical History (Updated 09/02/24 @ 12:26 by Dimas Rios MD) Left-sided cerebrovascular accident (CVA) (01/04/24) With residual left-sided visual neglect, profound expressive aphasia and right-sided hemiplegia ESRD on hemodialysis (02/17/22) Bilateral primary osteoarthritis of knee Chronic anticoagulation Obstructive sleep apnea Paroxysmal atrial fibrillation Hypothyroidism Insulin dependent type 2 diabetes mellitus Generalized anxiety disorder Chronic obstructive pulmonary disease Renal osteodystrophy DVT of lower extremity (deep venous thrombosis) Asthma-COPD overlap syndrome 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 Chronic diastolic (congestive) heart failure Coronary artery disease involving elem heart without angina pectoris Depression GERD without esophagitis Peripheral polyneuropathy Surgical History Surgical History (Updated 09/02/24 @ 04:12 by Gwen Jaimes DO) History of tracheostomy (04/24/22) With subsequent removal History of cataract extraction History of tonsillectomy History of cholecystectomy History of gastrostomy tube placement and removal Family History Family History Father Hypertension Family history of coronary artery disease Sibling Hypertension Family history of coronary artery disease Mother Cerebrovascular accident Other Asthma Depression Family history of Alzheimer's disease Family history of arthritis Family history of cardiovascular disease Family history of lymphoma Family history of obesity Family history of seizure disorder Social History Social History Social History: Surrogate medical decision maker: Anjum (spouse) or Gwen (daughter) Krya. Code status: Full code. Smoking packs per day: 2 Smoking cigarettes per day: 40.0 Years smoked: 30 Smoking pack-years: 60.00 Smoking status: Former smoker Tobacco type: cigarettes Second hand tobacco smoke exposure: No Smoking end date: 05/07/89 Alcohol intake: never Alcohol use details: special occasions Substance use: never Substance use type: marijuana Last use: 01/05/23 Do You Feel Safe in your Home?: Yes Lack of Transportation: No Lack of Food: Never True Current Housing: I Have Housing Concerned About Future Housing: No Difficulty Paying Gas/Electric Bills: No Difficulty Paying for Meds: No Currently Unemployed: No Education: High School Diploma/GED Difficulty w/ Childcare or Family Care: No Living arrangements: with family Occupation/Education: retired Spiritual care concerns: No Meds Home Medications and Allergies Home Medications ?Medication ?Instructions ?Recorded ?Confirmed ?Type fluticasone propionate 50 2 spray intranasal DAILY 03/19/19 09/01/24 History mcg/actuation nasal spray,suspension albuterol sulfate 2.5 mg/3 mL 2.5 mg (3 mL) inhalation Q4-6H PRN 07/10/23 09/01/24 Rx (0.083 %) solution for nebulization shortness of breath or wheezing #90 mL Ventolin HFA 90 mcg/actuation See Rx Instructions .Route 05/20/24 09/02/24 Rx aerosol inhaler (albuterol sulfate) .COMPLEX #18 grams insulin aspart U-100 100 unit/mL See Rx Instructions .Route .COMPLEX 05/20/24 09/02/24 History (3 mL) subcutaneous pen (Novolog FlexPen U-100 Insulin aspart) metoprolol succinate 50 mg 50 mg PO QAM #90 tabs 05/20/24 09/01/24 Rx tablet,extended release 24 hr atorvastatin 20 mg tablet (Lipitor) 20 mg PO HS #90 tabs 07/04/24 09/01/24 Rx lorazepam 0.5 mg tablet (Ativan) 0.5 mg PO DAILY PRN anxiety 07/04/24 09/02/24 History montelukast 10 mg tablet 10 mg PO DAILY #90 tabs 07/04/24 09/01/24 Rx levothyroxine 175 mcg tablet 175 mcg PO DAILY #90 tabs 07/07/24 09/01/24 Rx budesonide-formoterol HFA 160 2 puff inhalation Q12H #10.2 grams 07/17/24 09/01/24 Rx mcg-4.5 mcg/actuation aerosol inhaler trazodone 50 mg tablet 50 mg PO QHS #30 tabs 07/24/24 09/01/24 Rx apixaban 2.5 mg tablet (Eliquis) See Rx Instructions PO .COMPLEX 07/29/24 09/01/24 Rx #180 tabs amiodarone 200 mg tablet 200 mg PO QAM 09/02/24 09/01/24 History insulin glargine 100 unit/mL (3 18 unit subcut QPM 09/02/24 09/01/24 History mL) subcutaneous pen (Lantus Solostar U-100 Insulin) ropinirole 2 mg tablet 0.5 mg PO Q12H 09/02/24 09/01/24 History Allergies Allergy/AdvReac Type Severity Reaction Status Date / Time nickel Allergy Intermediate hives and Verified 06/12/24 13:35 itchy rash Sulfa (Sulfonamide Allergy Intermediate Urticaria Verified 06/12/24 13:35 Antibiotics) and hives Calcium Channel Blocking AdvReac Intermediate STATES Verified 06/12/24 13:35 Agents-Dih CANNOT TAKE SINCE SHE HAS ASTHMA diphenhydramine AdvReac Intermediate restless Verified 06/12/24 13:35 legs nifedipine AdvReac Intermediate palpitation Verified 06/12/24 13:35 s Ascujoy-XDV-RcI Reductase AdvReac Intermediate muscle Verified 06/12/24 13:35 Inhibitor (Asvmsth-Ifi-Lcw cramps Reductase Inhibitor) Vital Signs Vital Signs Temp Pulse Resp BP Pulse Ox O2 Del Method 09/02/24 09:04 98 F 69 16 160/47 H 94 09/02/24 09:00 69 09/02/24 08:59 69 09/02/24 08:33 67 14 09/02/24 08:33 94 Room Air 09/02/24 04:31 97.3 F L 77 16 154/92 H 97 09/01/24 23:34 97.9 F 74 20 192/67 H 94 09/01/24 23:30 Room Air 09/01/24 22:51 86 163/77 H 09/01/24 22:49 75 180/77 H 09/01/24 22:41 71 197/72 H 09/01/24 20:45 66 17 133/79 97 09/01/24 19:28 68 16 133/66 97 09/01/24 18:08 97.8 F 69 14 146/67 H 97 09/01/24 18:07 98 Room Air Exam 2 Narrative: GENERAL APPEARANCE: elderly female resting comfortably in no acute distress HEENT: normocephalic, atraumatic, normal conjunctiva and sclera, nares patient NECK: no lymphadenopathy, thyromegaly, or JVD MOUTH: normal lips, teeth, and gums CARDIOVASCULAR: RRR, normal S1 and S2, no rub detected RESPIRATORY: clear anteriorly; decreased at bases ABDOMEN: soft, nontender, nondistended, positive bowel sounds present EXTREMITIES: no evidence of cyanosis, clubbing, or edema NEUROLOGICAL: alert and oriented x 1; expressive aphasia; generalized weakness Results Lab Results 09/03/24 05:53 09/03/24 05:53 Lab results: Most recent lab results Calcium 8.2 mg/dL (8.4-10.2) L 09/01/24 18:21
[2024-09-02 11:42] LABS: Glucose Point of Care 370 mg/dl (65-105)
[2024-09-02] MEDS: INSULIN ASPART (*BKC) 100 UNITS/ML SUB-Q ×2 (12:11→20:09)
[2024-09-02] MEDS: FLUCONAZOLE 150 MG TABLET PO (12:11)
--- NOTE | 2024-09-02 14:05 | P.PNIM_ITS ---
Progress Note: A&P Assessment and Plan (1) UTI (urinary tract infection): Qualifiers: Hematuria presence: without hematuria Urinary tract infection type: acute cystitis Qualified Code(s): N30.00 - Acute cystitis without hematuria Code(s): N39.0 - Urinary tract infection, site not specified Status: Acute Assessment and Plan: Continue Rocephin Monitor urine culture monitor (2) AMS (altered mental status): Qualifiers: Altered mental status type: unspecified Qualified Code(s): R41.82 - Altered mental status, unspecified Code(s): R41.82 - Altered mental status, unspecified Status: Acute Assessment and Plan: Patient is aphasic at baseline CT head unremarkable Awaiting PT/OT (3) Type 2 diabetes mellitus with hyperglycemia: Qualifiers: Diabetes mellitus longterm insulin use: with 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 Likely secondary to underlying infection. Will resume patient's home Lantus and will add sliding scale insulin with Accu-Cheks a.c. HS and hypoglycemia protocol (4) Hypertension: Qualifiers: Hypertension type: unspecified Qualified Code(s): I10 - Essential (primary) hypertension Code(s): I10 - Essential (primary) hypertension Status: Chronic Assessment and Plan: BP elevated started Isosorbide mononitrate continue Metoprolol (5) Pseudohyponatremia: Code(s): R79.89 - Other specified abnormal findings of blood chemistry Status: Acute Assessment and Plan: Due to hyperglycemia. Diabetes management as discussed above (6) Prolonged QT interval: Code(s): R94.31 - Abnormal electrocardiogram [ECG] [EKG] Status: Acute Assessment and Plan: No evidence of acute arrhythmia but QT prolongation noted on EKG. Will avoid QT prolonging medications. (7) ESRD on hemodialysis: Code(s): N18.6 - End stage renal disease; Z99.2 - Dependence on renal dialysis Status: Acute Assessment and Plan: Will consult Nephrology for hemodialysis Sunday (8) RLS (restless legs syndrome): Code(s): G25.81 - Restless legs syndrome Status: Acute Assessment and Plan: Will resume home Requip (9) Chronic anticoagulation: Code(s): Z79.01 - FCI (current) use of anticoagulants Status: Acute Assessment and Plan: Will continue home Eliquis (10) Hypothyroidism: Qualifiers: Hypothyroidism type: unspecified Qualified Code(s): E03.9 - Hypothyroidism, unspecified Code(s): E03.9 - Hypothyroidism, unspecified Status: Acute Assessment and Plan: Patient has an elevated TSH but T4 is also elevated. There is likely some component of euthyroid sick. Will continue home levothyroxine at current dosing. And recommend repeat labs to re-evaluate in 4-6 weeks once acute illness has resolved. Plan DVT prophylaxis on Eliquis Subjective Date/time seen: 09/02/24 14:05 Interval history: Comfortable at bedside Patient is aphasic and confirmed at bedside that is her baseline awaiting PT/OT eval Review of Systems Review of Systems: Patient is unable to provide review of systems due to near complete expressive aphasia from prior stroke Exam Narrative: Weight 82.9 kg BMI 30.4 Const: Other: No acute distress, well-developed well-nourished, appears stated age HENMT: Other: Mucous membranes are tacky, no oral pharyngeal erythema, head is normocephalic atraumatic, mild right facial droop, mild left tongue deviation Eyes: Other: Pupils are equal and reactive, no scleral icterus, positive conjunctival pallor Neck: Other: No JVD, no lymphadenopathy Resp: Other: Clear to auscultation bilaterally, no increased work of breathing Cardio: Other: Regular rate, regular rhythm, 2+ bilateral pedal pulses, 2+ right radial pulse GI: Other: Soft, nontender, nondistended, positive bowel sounds : Other: Incontinent of urine Skin: Other: Scab to the top of the 2nd toe that is been present since the patient's stroke and is been slow in healing, no evidence of erythema or infection, no large areas of bruising, no pallor, non jaundice, normal temperature to touch Neuro: Other: Alert orient x1, right facial droop, normal muscle tone bilateral upper and lower extremities, but decreased strength of right fondant cooker minimal compared to left, patient is unable to follow commands for repeat evaluation of extraocular movements, pupils are equal and reactive, patient is occasionally able to echo responses, she answers questions yes and no although accuracy answers is difficult to ascertain, she also has production of nonsensical sounds when she tries to answer questions. All of these are chronic findings since the patient's stroke Extrem: Other: No clubbing, no cyanosis no edema, upper extremity AV fistula Psych: Other: Pleasant and cooperative but confused Objective Data Vital Signs Vital Signs: Vital Signs - 24 hr 09/01/24 18:07 09/01/24 18:08 09/01/24 19:28 Temperature 97.8 F Pulse Rate 69 68 Respiratory Rate 14 16 Blood Pressure 146/67 H 133/66 Pulse Oximetry 98 97 97 Oxygen Delivery Room Air 09/01/24 20:45 09/01/24 22:41 09/01/24 22:49 Temperature Pulse Rate 66 71 75 Respiratory Rate 17 Blood Pressure 133/79 197/72 H 180/77 H Pulse Oximetry 97 Oxygen Delivery 09/01/24 22:51 09/01/24 23:30 09/01/24 23:34 Temperature 97.9 F Pulse Rate 86 74 Respiratory Rate 20 Blood Pressure 163/77 H 192/67 H Pulse Oximetry 94 Oxygen Delivery Room Air 09/02/24 04:31 09/02/24 08:33 09/02/24 08:33 Temperature 97.3 F L Pulse Rate 77 67 Respiratory Rate 16 14 Blood Pressure 154/92 H Pulse Oximetry 97 94 Oxygen Delivery Room Air 09/02/24 08:59 09/02/24 09:00 09/02/24 09:04 Temperature 98 F Pulse Rate 69 69 69 Respiratory Rate 16 Blood Pressure 160/47 H Pulse Oximetry 94 Oxygen Delivery Intake/Output Intake/Output: Intake & Output 08/30/24 08/31/24 09/01/24 09/02/24 23:59 23:59 23:59 23:59 Intake Total 50 480 Output Total 50 150 Balance 0 330 Meds/Results Medications: Active Medications Generic Name Dose Route Start Last Admin Trade Name Freq PRN Reason Stop Dose Admin Acetaminophen 650 mg 09/01/24 21:39 09/02/24 02:43 Acetaminophen 325 Mg Tablet PO 650 mg Q4H PRN Administration Mild Pain (1-3) or Fever Albuterol 2.5 mg 09/02/24 02:38 Albuterol Sulfate Neb 2.5 Mg/3 Ml Inh INHALATION Q4-6H PRN shortness of breath or wheezing Amiodarone HCl 200 mg 09/02/24 09:00 09/02/24 09:00 Amiodarone Hcl 200 Mg Tablet PO 200 mg QAM ALINA Administration Apixaban 2.5 mg 09/02/24 09:00 09/02/24 08:59 Apixaban 2.5 Mg Tablet PO 2.5 mg Q12HR ALINA Administration Atorvastatin Calcium 20 mg 09/02/24 21:00 Atorvastatin 20 Mg Tablet PO HS ALINA Dextrose 12.5 gm 09/02/24 11:49 Dextrose 50% 25 Gm/50 Ml Syringe IV PUSH PRN PRN Hypoglycemia Protocol Fluticasone Propionate 2 spray 09/02/24 09:00 09/02/24 09:03 Fluticasone Propionate 0.05% Na Spr 16 Gm Btl (*Bkc) NASAL 2 spray DAILY ALINA Administration Glucagon 1 mg 09/02/24 11:49 Glucagon For Inj 1 Mg Vial IM PRN PRN Hypoglycemia Protocol Glucose 15 gm 09/02/24 11:49 Glucose Oral Gel 15 Gm Of Glucse In 37.5 Gm Tube PO PRN PRN Hypoglycemia Protocol Hydralazine HCl 10 mg 09/02/24 02:40 Hydralazine Hcl 20 Mg/Ml Vial IV PUSH Q4H PRN SBP greater than 180 Ceftriaxone Sodium 1 gm in 50 mls @ 100 mls/hr 09/02/24 20:00 Rocephin 1 Gm/Ns 50 Ml IVPB Q24H ALINA Dextrose 1,000 mls @ 100 mls/hr 09/02/24 11:49 Dextrose 5% 1,000 Ml IVPB PRN PRN Hypoglycemia Protocol Insulin Aspart 4 - 8 units 09/02/24 12:00 09/02/24 12:11 Insulin Aspart (*Bkc) 100 Units/Ml SUB-Q 8 units TIDWM ALINA Administration Protocol Insulin Aspart 2 - 4 units 09/02/24 21:00 Insulin Aspart (*Bkc) 100 Units/Ml SUB-Q HS ALINA Protocol Insulin Glargine 18 units 09/02/24 21:00 Insulin Glargine (*Bkc) 100 Units/Ml SUB-Q HS ALINA Levothyroxine Sodium 100 mcg/ 175 mcg 09/02/24 06:30 09/02/24 09:00 Levothyroxine Sodium 75 mcg PO 175 mcg DAILY@0630 ALINA Administration Lorazepam 0.5 mg 09/02/24 02:38 Lorazepam (*Crx) 0.5 Mg Tablet PO DAILY PRN anxiety Metoprolol Succinate 50 mg 09/02/24 09:00 09/02/24 08:59 Metoprolol Succinate Ext Rel 50 Mg Tabcr PO 50 mg QAM ALINA Administration Montelukast Sodium 10 mg 09/02/24 09:00 09/02/24 09:00 Montelukast Sodium 10 Mg Tablet PO 10 mg DAILY ALINA Administration Ropinirole HCl 0.5 mg 09/02/24 09:00 09/02/24 09:01 Ropinirole Hcl 0.5 Mg Tablet PO 0.5 mg Q12HR ALINA Administration Fluticasone/Salmeterol 2 puff 09/02/24 08:00 09/02/24 08:33 Fluticasone/Salmeterol 115-21 Mcg Inhaler 1 Puff INHALATION 2 puff Q12HRT ALINA Administration Trazodone HCl 50 mg 09/02/24 21:00 Trazodone Hcl 50 Mg Tablet PO QHS [facility] Radiology Results: ITS Impressions Head CT 09/01/24 18:36 IMPRESSION: No acute intracranial process. Chest X-Ray 09/01/24 19:13 IMPRESSION: Pulmonary vascular congestion. Subsegmental left basilar atelectasis/consolidation. Labs Labs: Laboratory Results - last 24 hr 09/01/24 09/01/24 09/01/24 18:21 20:47 23:53 WBC 7.5 RBC 3.44 L Hgb 10.0 L Hct 32.6 L MCV 94.8 MCH 29.1 MCHC 30.7 L RDW 14.9 H Plt Count 296 MPV 10.6 H Immature Gran % (Auto) 0.3 Neut % (Auto) 67.5 Lymph % (Auto) 15.4 L [place] % (Auto) 10.1 H Eos % (Auto) 5.5 H Baso % (Auto) 1.2 Lymph # (Auto) 1.16 [place] # (Auto) 0.8 H Eos # (Auto) 0.4 H Baso # (Auto) 0.1 Abs Immat Gran (auto) 0.02 Absolute Neuts (auto) 5.1 Absolute Nucleated RBC 0.000 Nucleated RBC % 0.0 PT 13.7 INR 1.0 APTT 27.3 Sodium 136 L Potassium 3.7 Chloride 93 L Carbon Dioxide 37 H Anion Gap 6 BUN 21 H Creatinine 3.18 H Estim Creat Clear Calc Not Reportable Estimated GFR 14 L Glucose 368 H POC Capillary Glucose Lactic Acid 2.3 H 1.6 Calcium 8.2 L Total Bilirubin 0.5 AST 24 ALT 14 Alkaline Phosphatase 125 Total Creatine Kinase 49 Troponin I 0.019 Total Protein 7.0 Albumin 3.6 TSH (Reflex) 6.030 H Free T4 2.95 H Urine Color Yellow Urine Appearance Turbid H Urine pH 8.5 Ur Specific [place] 1.011 Urine Protein 3+ H Urine Glucose (UA) Negative Urine Ketones Negative Ur Blood (Man) 1+ H Urine Nitrate Negative Urine Bilirubin Negative Urine Urobilinogen 0.2 Add Ur Microanalysis Reviewed Leukocyte Esterase Rfl 3+ H Urine RBC 6-10 H Urine WBC >100 H Ur Squamous Epith Cells None seen Urine Bacteria 4+ Urine Casts 3-5 Nasal MRSA (PCR) Not detected 09/02/24 09/02/24 09/02/24 00:46 07:38 11:40 WBC RBC Hgb Hct MCV MCH MCHC RDW Plt Count MPV Immature Gran % (Auto) Neut % (Auto) Lymph % (Auto) [place] % (Auto) Eos % (Auto) Baso % (Auto) Lymph # (Auto) [place] # (Auto) Eos # (Auto) Baso # (Auto) Abs Immat Gran (auto) Absolute Neuts (auto) Absolute Nucleated RBC Nucleated RBC % PT INR APTT Sodium Potassium Chloride Carbon Dioxide Anion Gap BUN Creatinine Estim Creat Clear Calc Estimated GFR Glucose POC Capillary Glucose 248 H 147 H 370 H Lactic Acid Calcium Total Bilirubin AST ALT Alkaline Phosphatase Total Creatine Kinase Troponin I Total Protein Albumin TSH (Reflex) Free T4 Urine Color Urine Appearance Urine pH Ur Specific [place] Urine Protein Urine Glucose (UA) Urine Ketones Ur Blood (Man) Urine Nitrate Urine Bilirubin Urine Urobilinogen Add Ur Microanalysis Leukocyte Esterase Rfl Urine RBC Urine WBC Ur Squamous Epith Cells Urine Bacteria Urine Casts Nasal MRSA (PCR) Quality VTE Prophylaxis VTE prophylaxis: pharmacologic ordered (Continue home Eliquis.)
[2024-09-02] MEDS: ISOSORBIDE MONONITRATE 30 MG TAB.ER.24H PO (16:02)
[2024-09-02 16:10] LABS: Glucose Point of Care 183 mg/dl (65-105)
[2024-09-02 16:55] LABS: Glucose Point of Care 166 mg/dl (65-105)
[2024-09-02] MEDS: traZODone HCL 50 MG TABLET PO (20:06)
[2024-09-02] MEDS: ATORVASTATIN 20 MG TABLET PO (20:06)
[2024-09-02] MEDS: INSULIN GLARGINE (*BKC) 100 UNITS/ML 18 UNITS SUB-Q (20:08)
[2024-09-02 21:22] LABS: Glucose Point of Care 247 mg/dl (65-105)
[2024-09-03] VITALS (25 sets, daily range): BP systolic 117–186; BP diastolic 39–108; PULSE 57–96; RESP 16–20; TEMP 36.3–37.5; O2SAT 96–100
[2024-09-03] MEDS: LEVOTHYROXINE SODIUM 100 MCG, LEVOTHYROXINE SODIUM 75 MCG 175 MCG PO (05:19)
[2024-09-03 06:18] LABS: Basophils Absolute Auto 0.1 K/mm3 (0.0-0.1); Basophils Percent Auto 0.9 % (0.2-1.2); Eosinophils Absolute Auto 0.7 K/mm3 (0-0.3); Eosinophils Percent Auto 7.4 % (0-4.4); Hematocrit 30.3 % (37.0-47.0); Hemoglobin 9.4 g/dL (12.0-15.0); Immature Granulocyte Absolute 0.04 K/mm3 (0.00-0.031); Immature Granulocyte Percent A 0.4 % (0-0.5); Lymphocytes Absolute Auto 2.08 K/mm3 (0.9-3.2); Lymphocytes Percent Auto 22.3 % (18.3-44.2); Mean Corpuscular Hemoglobin 29.2 pg (26-34); Mean Corpuscular Volume 94.1 fl (80-100); Mean Platelet Volume 10.5 fl (7.4-10.4); Monocytes Absolute Auto 0.9 K/mm3 (0.1-0.6); Monocytes Percent Auto 9.9 % (2.6-8.5); Neutrophils Absolute Auto 5.5 K/mm3 (1.3-6.7); Neutrophils Percent Auto 59.1 % (45.5-73.1); Platelet Count Result 282 k/mm3 (150-375); Red Blood Count 3.22 M/mm3 (4.2-5.4); Red Cell Distribution Width 14.8 % (11.5-14.5); White Blood Count 9.3 K/mm3 (4.5-10.0)
[2024-09-03 06:39] LABS: Alanine Aminotransferase 11 U/L (6-35); Albumin Level 3.5 g/dL (3.5-5.1); Alkaline Phosphatase 95 U/L (38-126); Anion Gap 8 mmol/L (4-12); Aspartate Amino Transferase 19 U/L (14-36); Bilirubin,Total 0.5 mg/dL (0.2-1.3); Blood Urea Nitrogen 34 mg/dL (7-17); Calcium 8.4 mg/dL (8.4-10.2); Carbon Dioxide 33 mmol/L (22-30); Chloride 96 mmol/L (98-107); Estimated CRCL calculation 10 ml/min; Estimated Glomerular Filt Rate 8; Glucose 120 mg/dL (65-110); Magnesium 1.7 mg/dL (1.6-2.3); Potassium 3.6 mmol/L (3.4-5.0); Sodium 137 mmol/L (137-145)
[2024-09-03 06:59] LABS: Hepatitis B Surface Antigen Negative (Negative)
[2024-09-03 07:17] LABS: Hepatitis B Surface Anti Res Negative
[2024-09-03 07:58] LABS: Glucose Point of Care 182 mg/dl (65-105)
[2024-09-03] MEDS: FLUTICASONE/SALMETEROL 115-21 MCG INHALER 1 PUFF 2 PUFF INHALATION ×2 (07:59→19:51)
--- NOTE | 2024-09-03 09:10 | P.PNNP_ITS ---
Progress Note: A&P Assessment and Plan (1) End stage renal disease: Code(s): N18.6 - End stage renal disease Status: Acute Assessment and Plan: * HD today * continue M/W/ outpatient dialysis schedule * follow electrolytes, volume status, and clearance (2) AMS (altered mental status): Qualifiers: Altered mental status type: unspecified Qualified Code(s): R41.82 - Altered mental status, unspecified Code(s): R41.82 - Altered mental status, unspecified Status: Acute Assessment and Plan: * seems better at this time * difficult to assess degree of altered mental status due to patient's baseline communication deficits from previous CVA and expressive aphasia * however, family reports her behavior has change at home * possibly secondary to UTI??? * CT of head negative for acute pathology * follow mentation... (3) UTI (urinary tract infection): Code(s): N39.0 - Urinary tract infection, site not specified Status: Resolved Assessment and Plan: * admission UA highly suggestive * follow culture data - gram negative bacilli noted * on antibiotics (4) Anemia: Code(s): D64.9 - Anemia, unspecified Status: Chronic Assessment and Plan: * due to ESRD * Epogen with HD * follow trend of H/H (5) Hypertension: Qualifiers: Hypertension type: unspecified Qualified Code(s): I10 - Essential (primary) hypertension Code(s): I10 - Essential (primary) hypertension Status: Chronic Assessment and Plan: * elevated at this time * reassess post dialysis * resume home medications * consider titration of isosorbide versus hydralazine as needed * follow trend of hemodynamics (6) Type 2 diabetes mellitus with hyperglycemia: Qualifiers: Diabetes mellitus alf insulin use: 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 Will continue to follow. L Subjective Date/time seen: 09/03/24 09:10 Interval history: Follow-up for end stage renal disease on hemodialysis. Tolerating dialysis treatment at the time of my visit (seen on HD at 09:00AM); no apparent distress voiced when seen; more awake and alert in comparison to when I saw her yesterday; no other issues/events overnight or earlier this morning. Exam 2 Narrative: General: elderly but WD/WN female in NAD Heart: normal S1 and S2; no rub Lungs: clear anteriorly; decreased at bases Abdomen: soft, nontender, nondistended, positive bowel sounds Extremities: no cyanosis or clubbing; trace edema Skin: warm and dry Objective Data Vital Signs Vital Signs: Vital Signs Temp Pulse Resp BP Pulse Ox O2 Del Method 09/03/24 08:28 98.2 F 65 18 185/74 H 09/03/24 05:40 97.4 F L 60 20 183/60 H 100 09/02/24 21:02 61 14 09/02/24 20:12 97.4 F L 55 L 20 171/95 H 98 09/02/24 20:00 Room Air 09/02/24 14:00 98.1 F 66 14 145/62 H 99 Intake/Output Intake/Output: Intake & Output 08/31/24 09/01/24 09/02/24 09/03/24 23:59 23:59 23:59 23:59 Intake Total 50 1100 400 Output Total 50 150 200 Balance 0 950 200 Meds/Results Medications: Active Medications Generic Name Dose Route Start Last Admin Trade Name Freq PRN Reason Stop Dose Admin Acetaminophen 650 mg 09/01/24 21:39 09/02/24 02:43 Acetaminophen 325 Mg Tablet PO 650 mg Q4H PRN Administration Mild Pain (1-3) or Fever Albuterol 2.5 mg 09/02/24 02:38 Albuterol Sulfate Neb 2.5 Mg/3 Ml Inh INHALATION Q4-6H PRN shortness of breath or wheezing Amiodarone HCl 200 mg 09/02/24 09:00 09/02/24 09:00 Amiodarone Hcl 200 Mg Tablet PO 200 mg QAM ALINA Administration Apixaban 2.5 mg 09/02/24 09:00 09/02/24 20:06 Apixaban 2.5 Mg Tablet PO 2.5 mg Q12HR ALINA Administration Atorvastatin Calcium 20 mg 09/02/24 21:00 09/02/24 20:06 Atorvastatin 20 Mg Tablet PO 20 mg HS ALINA Administration Dextrose 12.5 gm 09/02/24 11:49 Dextrose 50% 25 Gm/50 Ml Syringe IV PUSH PRN PRN Hypoglycemia Protocol Epoetin Jorge Alberto-epbx 4,000 units 09/03/24 18:16 Epoetin Jorge Alberto-Epbx 4,000 Units/Ml Vial IV PUSH 09/03/24 18:17 ONCE ONE Fluticasone Propionate 2 spray 09/02/24 09:00 09/02/24 09:03 Fluticasone Propionate 0.05% Na Spr 16 Gm Btl (*Bkc) NASAL 2 spray DAILY ALINA Administration Glucagon 1 mg 09/02/24 11:49 Glucagon For Inj 1 Mg Vial IM PRN PRN Hypoglycemia Protocol Glucose 15 gm 09/02/24 11:49 Glucose Oral Gel 15 Gm Of Glucse In 37.5 Gm Tube PO PRN PRN Hypoglycemia Protocol Hydralazine HCl 10 mg 09/02/24 02:40 Hydralazine Hcl 20 Mg/Ml Vial IV PUSH Q4H PRN SBP greater than 180 Hydralazine HCl 25 mg 09/03/24 09:00 Hydralazine Hcl 25 Mg Tablet PO TID ALINA Ceftriaxone Sodium 1 gm in 50 mls @ 100 mls/hr 09/02/24 20:00 09/02/24 20:35 Rocephin 1 Gm/Ns 50 Ml IVPB Infused Q24H ALINA Infusion Dextrose 1,000 mls @ 100 mls/hr 09/02/24 11:49 Dextrose 5% 1,000 Ml IVPB PRN PRN Hypoglycemia Protocol Albumin Human 50 mls @ 999 mls/hr 09/03/24 06:14 Albutein IVPB 10/03/24 06:13 Q10M PRN HYPOTENSION Insulin Aspart 4 - 8 units 09/02/24 12:00 09/03/24 08:17 Insulin Aspart (*Bkc) 100 Units/Ml SUB-Q Not Given TIDWM ALINA Protocol Insulin Aspart 2 - 4 units 09/02/24 21:00 09/02/24 20:09 Insulin Aspart (*Bkc) 100 Units/Ml SUB-Q 2 units HS ALINA Administration Protocol Insulin Glargine 18 units 09/02/24 21:00 09/02/24 20:08 Insulin Glargine (*Bkc) 100 Units/Ml SUB-Q 18 units HS ALINA Administration Isosorbide Mononitrate 30 mg 09/02/24 15:00 09/02/24 16:02 Isosorbide Mononitrate 30 Mg Tab.Er.24h PO 30 mg QAM ALINA Administration Levothyroxine Sodium 100 mcg/ 175 mcg 09/02/24 06:30 09/03/24 05:19 Levothyroxine Sodium 75 mcg PO 175 mcg DAILY@0630 ALINA Administration Lorazepam 0.5 mg 09/02/24 02:38 Lorazepam (*Crx) 0.5 Mg Tablet PO DAILY PRN anxiety Metoprolol Succinate 50 mg 09/02/24 09:00 09/02/24 08:59 Metoprolol Succinate Ext Rel 50 Mg Tabcr PO 50 mg QAM ALINA Administration Montelukast Sodium 10 mg 09/02/24 09:00 09/02/24 09:00 Montelukast Sodium 10 Mg Tablet PO 10 mg DAILY ALINA Administration Ropinirole HCl 0.5 mg 09/02/24 09:00 09/02/24 20:06 Ropinirole Hcl 0.5 Mg Tablet PO 0.5 mg Q12HR ALINA Administration Fluticasone/Salmeterol 2 puff 09/02/24 08:00 09/03/24 07:59 Fluticasone/Salmeterol 115-21 Mcg Inhaler 1 Puff INHALATION 2 puff Q12HRT ALINA Administration Trazodone HCl 50 mg 09/02/24 21:00 09/02/24 20:06 Trazodone Hcl 50 Mg Tablet PO 50 mg QHS ALINA Administration Radiology Results: ITS Impressions Head CT 09/01/24 18:36 IMPRESSION: No acute intracranial process. Chest X-Ray 09/01/24 19:13 IMPRESSION: Pulmonary vascular congestion. Subsegmental left basilar atelectasis/consolidation. Labs Labs: Laboratory Tests 09/03/24 05:53 09/03/24 05:53 Calcium 8.4 Magnesium 1.7 Total Bilirubin 0.5 AST 19 ALT 11 Alkaline Phosphatase 95 Total Protein 7.0 Albumin 3.5 Microbiology 09/01/24 18:21 Urine Catheterized Urine Culture - Preliminary Gram negative bacilli isolated 09/01/24 22:35 Blood Blood Culture - Preliminary 09/01/24 22:35 Blood Blood Culture - Preliminary
[2024-09-03] MEDS: EPOETIN ALFA-EPBX 4,000 UNITS/ML VIAL 4000 UNITS IV PUSH (10:03)
--- NOTE | 2024-09-03 11:06 | PM.IMPN ---
Progress Note: A&P Assessment and Plan (1) UTI (urinary tract infection): Qualifiers: Hematuria presence: without hematuria Urinary tract infection type: acute cystitis Qualified Code(s): N30.00 - Acute cystitis without hematuria Code(s): N39.0 - Urinary tract infection, site not specified Status: Acute Assessment and Plan: Continue Rocephin Urine culture GNB, awaiting sensitivity monitor (2) AMS (altered mental status): Qualifiers: Altered mental status type: unspecified Qualified Code(s): R41.82 - Altered mental status, unspecified Code(s): R41.82 - Altered mental status, unspecified Status: Acute Assessment and Plan: Patient is aphasic at baseline CT head unremarkable Awaiting PT/OT (3) Type 2 diabetes mellitus with hyperglycemia: Qualifiers: 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 mellitus 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 insulin 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: with detention use Qualified Code(s): E11.65 - Type 2 diabetes mellitus with hyperglycemia; Z79.4 - correction (current) use of insulin Code(s): E11.65 - Type 2 diabetes mellitus with hyperglycemia Status: Chronic Assessment and Plan: SSI with accucheks, continue home Lantus (4) Hypertension: Qualifiers: Hypertension type: unspecified Qualified Code(s): I10 - Essential (primary) hypertension Code(s): I10 - Essential (primary) hypertension Status: Chronic Assessment and Plan: BP elevated started Isosorbide mononitrate, and Hydralazine 25mg tid continue Metoprolol (5) Pseudohyponatremia: Code(s): R79.89 - Other specified abnormal findings of blood chemistry Status: Acute Assessment and Plan: Resolved (6) Prolonged QT interval: Code(s): R94.31 - Abnormal electrocardiogram [ECG] [EKG] Status: Acute Assessment and Plan: No evidence of acute arrhythmia but QT prolongation noted on EKG. Will avoid QT prolonging medications. (7) ESRD on hemodialysis: Code(s): N18.6 - End stage renal disease; Z99.2 - Dependence on renal dialysis Status: Acute Assessment and Plan: Will consult Nephrology for hemodialysis Sunday (8) RLS (restless legs syndrome): Code(s): G25.81 - Restless legs syndrome Status: Acute Assessment and Plan: Will resume home Requip (9) Chronic anticoagulation: Code(s): Z79.01 - correction (current) use of anticoagulants Status: Acute Assessment and Plan: Will continue home Eliquis (10) Hypothyroidism: Qualifiers: Hypothyroidism type: unspecified Qualified Code(s): E03.9 - Hypothyroidism, unspecified Code(s): E03.9 - Hypothyroidism, unspecified Status: Acute Assessment and Plan: Patient has an elevated TSH but T4 is also elevated. There is likely some component of euthyroid sick. Will continue home levothyroxine at current dosing. And recommend repeat labs to re-evaluate in 4-6 weeks once acute illness has resolved. Plan DVT prophylaxis on Eliquis Subjective Date/time seen: 09/03/24 11:06 Interval history: Comfortable at bedside Awaiting urine culture finalization Review of Systems Review of Systems: Patient is unable to provide review of systems due to near complete expressive aphasia from prior stroke Exam Narrative: Weight 82.9 kg BMI 30.4 Const: Other: No acute distress, well-developed well-nourished, appears stated age HENMT: Other: Mucous membranes are tacky, no oral pharyngeal erythema, head is normocephalic atraumatic, mild right facial droop, mild left tongue deviation Eyes: Other: Pupils are equal and reactive, no scleral icterus, positive conjunctival pallor Neck: Other: No JVD, no lymphadenopathy Resp: Other: Clear to auscultation bilaterally, no increased work of breathing Cardio: Other: Regular rate, regular rhythm, 2+ bilateral pedal pulses, 2+ right radial pulse GI: Other: Soft, nontender, nondistended, positive bowel sounds : Other: Incontinent of urine Skin: Other: Scab to the top of the 2nd toe that is been present since the patient's stroke and is been slow in healing, no evidence of erythema or infection, no large areas of bruising, no pallor, non jaundice, normal temperature to touch Neuro: Other: Alert orient x1, right facial droop, normal muscle tone bilateral upper and lower extremities, but decreased strength of right mds rn minimal compared to left, patient is unable to follow commands for repeat evaluation of extraocular movements, pupils are equal and reactive, patient is occasionally able to echo responses, she answers questions yes and no although accuracy answers is difficult to ascertain, she also has production of nonsensical sounds when she tries to answer questions. All of these are chronic findings since the patient's stroke Extrem: Other: No clubbing, no cyanosis no edema, upper extremity AV fistula Psych: Other: Pleasant and cooperative but confused Objective Data Vital Signs Vital Signs: Vital Signs - 24 hr 09/02/24 14:00 09/02/24 20:00 09/02/24 20:12 Temperature 98.1 F 97.4 F L Pulse Rate 66 55 L Respiratory Rate 14 20 Blood Pressure 145/62 H 171/95 H Pulse Oximetry 99 98 Oxygen Delivery Room Air 09/02/24 21:02 09/03/24 05:40 09/03/24 08:28 Temperature 97.4 F L 98.2 F Pulse Rate 61 60 65 Respiratory Rate 14 20 18 Blood Pressure 183/60 H 185/74 H Pulse Oximetry 100 Oxygen Delivery 09/03/24 08:41 09/03/24 08:45 09/03/24 09:00 Temperature Pulse Rate 65 69 62 Respiratory Rate Blood Pressure 186/74 H 175/71 H 182/71 H Pulse Oximetry Oxygen Delivery 09/03/24 09:15 09/03/24 09:30 09/03/24 09:45 Temperature Pulse Rate 65 63 66 Respiratory Rate Blood Pressure 178/71 H 157/62 H 158/70 H Pulse Oximetry Oxygen Delivery 09/03/24 10:00 09/03/24 10:15 09/03/24 10:30 Temperature Pulse Rate 65 65 64 Respiratory Rate Blood Pressure 161/71 H 161/67 H 160/60 H Pulse Oximetry Oxygen Delivery 09/03/24 10:45 09/03/24 11:00 Temperature Pulse Rate 69 65 Respiratory Rate Blood Pressure 128/74 117/58 L Pulse Oximetry Oxygen Delivery Intake/Output Intake/Output: Intake & Output 08/31/24 09/01/24 09/02/24 09/03/24 23:59 23:59 23:59 23:59 Intake Total 50 1100 520 Output Total 50 150 200 Balance 0 950 320 Meds/Results Medications: Active Medications Generic Name Dose Route Start Last Admin Trade Name Freq PRN Reason Stop Dose Admin Acetaminophen 650 mg 09/01/24 21:39 09/02/24 02:43 Acetaminophen 325 Mg Tablet PO 650 mg Q4H PRN Administration Mild Pain (1-3) or Fever Albuterol 2.5 mg 09/02/24 02:38 Albuterol Sulfate Neb 2.5 Mg/3 Ml Inh INHALATION Q4-6H PRN shortness of breath or wheezing Amiodarone HCl 200 mg 09/02/24 09:00 09/02/24 09:00 Amiodarone Hcl 200 Mg Tablet PO 200 mg QAM ALINA Administration Apixaban 2.5 mg 09/02/24 09:00 09/02/24 20:06 Apixaban 2.5 Mg Tablet PO 2.5 mg Q12HR ALINA Administration Atorvastatin Calcium 20 mg 09/02/24 21:00 09/02/24 20:06 Atorvastatin 20 Mg Tablet PO 20 mg HS ALINA Administration Dextrose 12.5 gm 09/02/24 11:49 Dextrose 50% 25 Gm/50 Ml Syringe IV PUSH PRN PRN Hypoglycemia Protocol Epoetin Jorge Alberto-epbx 4,000 units 09/03/24 18:16 09/03/24 10:03 Epoetin Jorge Alberto-Epbx 4,000 Units/Ml Vial IV PUSH 09/03/24 18:17 4,000 units ONCE ONE Administration Fluticasone Propionate 2 spray 09/02/24 09:00 09/02/24 09:03 Fluticasone Propionate 0.05% Na Spr 16 Gm Btl (*Bkc) NASAL 2 spray DAILY ALINA Administration Glucagon 1 mg 09/02/24 11:49 Glucagon For Inj 1 Mg Vial IM PRN PRN Hypoglycemia Protocol Glucose 15 gm 09/02/24 11:49 Glucose Oral Gel 15 Gm Of Glucse In 37.5 Gm Tube PO PRN PRN Hypoglycemia Protocol Hydralazine HCl 10 mg 09/02/24 02:40 Hydralazine Hcl 20 Mg/Ml Vial IV PUSH Q4H PRN SBP greater than 180 Hydralazine HCl 25 mg 09/03/24 09:00 Hydralazine Hcl 25 Mg Tablet PO TID ALINA Ceftriaxone Sodium 1 gm in 50 mls @ 100 mls/hr 09/02/24 20:00 09/02/24 20:35 Rocephin 1 Gm/Ns 50 Ml IVPB Infused Q24H ALINA Infusion Dextrose 1,000 mls @ 100 mls/hr 09/02/24 11:49 Dextrose 5% 1,000 Ml IVPB PRN PRN Hypoglycemia Protocol Albumin Human 50 mls @ 999 mls/hr 09/03/24 06:14 Albutein IVPB 10/03/24 06:13 Q10M PRN HYPOTENSION Insulin Aspart 4 - 8 units 09/02/24 12:00 09/03/24 08:17 Insulin Aspart (*Bkc) 100 Units/Ml SUB-Q Not Given TIDWM ALINA Protocol Insulin Aspart 2 - 4 units 09/02/24 21:00 09/02/24 20:09 Insulin Aspart (*Bkc) 100 Units/Ml SUB-Q 2 units HS ALINA Administration Protocol Insulin Glargine 18 units 09/02/24 21:00 09/02/24 20:08 Insulin Glargine (*Bkc) 100 Units/Ml SUB-Q 18 units HS ALINA Administration Isosorbide Mononitrate 30 mg 09/02/24 15:00 09/02/24 16:02 Isosorbide Mononitrate 30 Mg Tab.Er.24h PO 30 mg QAM ALINA Administration Levothyroxine Sodium 100 mcg/ 175 mcg 09/02/24 06:30 09/03/24 05:19 Levothyroxine Sodium 75 mcg PO 175 mcg DAILY@0630 ALINA Administration Lorazepam 0.5 mg 09/02/24 02:38 Lorazepam (*Crx) 0.5 Mg Tablet PO DAILY PRN anxiety Metoprolol Succinate 50 mg 09/02/24 09:00 09/02/24 08:59 Metoprolol Succinate Ext Rel 50 Mg Tabcr PO 50 mg QAM ALINA Administration Montelukast Sodium 10 mg 09/02/24 09:00 09/02/24 09:00 Montelukast Sodium 10 Mg Tablet PO 10 mg DAILY ALINA Administration Ropinirole HCl 0.5 mg 09/02/24 09:00 09/02/24 20:06 Ropinirole Hcl 0.5 Mg Tablet PO 0.5 mg Q12HR ALINA Administration Fluticasone/Salmeterol 2 puff 09/02/24 08:00 09/03/24 07:59 Fluticasone/Salmeterol 115-21 Mcg Inhaler 1 Puff INHALATION 2 puff Q12HRT ALINA Administration Trazodone HCl 50 mg 09/02/24 21:00 09/02/24 20:06 Trazodone Hcl 50 Mg Tablet PO 50 mg QHS ALINA Administration Radiology Results: ITS Impressions Head CT 09/01/24 18:36 IMPRESSION: No acute intracranial process. Chest X-Ray 09/01/24 19:13 IMPRESSION: Pulmonary vascular congestion. Subsegmental left basilar atelectasis/consolidation. Labs Labs: Laboratory Results - last 24 hr 09/02/24 09/02/24 09/02/24 11:40 16:07 16:53 WBC RBC Hgb Hct MCV MCH MCHC RDW Plt Count MPV Immature Gran % (Auto) Neut % (Auto) Lymph % (Auto) [place] % (Auto) Eos % (Auto) Baso % (Auto) Lymph # (Auto) [place] # (Auto) Eos # (Auto) Baso # (Auto) Abs Immat Gran (auto) Absolute Neuts (auto) Absolute Nucleated RBC Nucleated RBC % Sodium Potassium Chloride Carbon Dioxide Anion Gap BUN Creatinine Estim Creat Clear Calc Estimated GFR Glucose POC Capillary Glucose 370 H 183 H 166 H Calcium Magnesium Total Bilirubin AST ALT Alkaline Phosphatase Total Protein Albumin Hep Bs Antigen Hep Bs Antibody 09/02/24 09/03/24 09/03/24 20:06 05:53 07:55 WBC 9.3 RBC 3.22 L Hgb 9.4 L Hct 30.3 L MCV 94.1 MCH 29.2 MCHC 31.0 L RDW 14.8 H Plt Count 282 MPV 10.5 H Immature Gran % (Auto) 0.4 Neut % (Auto) 59.1 Lymph % (Auto) 22.3 [place] % (Auto) 9.9 H Eos % (Auto) 7.4 H Baso % (Auto) 0.9 Lymph # (Auto) 2.08 [place] # (Auto) 0.9 H Eos # (Auto) 0.7 H Baso # (Auto) 0.1 Abs Immat Gran (auto) 0.04 H Absolute Neuts (auto) 5.5 Absolute Nucleated RBC 0.000 Nucleated RBC % 0.0 Sodium 137 Potassium 3.6 Chloride 96 L Carbon Dioxide 33 H Anion Gap 8 BUN 34 H D Creatinine 5.00 H Estim Creat Clear Calc 10 Estimated GFR 8 L Glucose 120 H POC Capillary Glucose 247 H 182 H Calcium 8.4 Magnesium 1.7 Total Bilirubin 0.5 AST 19 ALT 11 Alkaline Phosphatase 95 Total Protein 7.0 Albumin 3.5 Hep Bs Antigen Negative Hep Bs Antibody Negative Quality VTE Prophylaxis VTE prophylaxis: pharmacologic ordered (Continue home Eliquis.)
--- NOTE | 2024-09-03 11:48 | PCOTNOTE ---
Patient is currently in dialysis and is unable to be seen for skilled occupational therapy evaluation at this time. Will evaluate when appropriate.
[2024-09-03 13:13] LABS: Glucose Point of Care 134 mg/dl (65-105)
[2024-09-03] MEDS: rOPINIRole HCL 0.5 MG TABLET PO ×2 (13:15→21:57)
[2024-09-03] MEDS: AMIODARONE HCL 200 MG TABLET PO (13:15)
[2024-09-03] MEDS: ISOSORBIDE MONONITRATE 30 MG TAB.ER.24H PO (13:16)
[2024-09-03] MEDS: METOPROLOL SUCCINATE EXT REL 50 MG TABCR PO (13:16)
[2024-09-03] MEDS: MONTELUKAST SODIUM 10 MG TABLET PO (13:16)
[2024-09-03] MEDS: APIXABAN 2.5 MG TABLET PO ×2 (13:16→21:57)
[2024-09-03] MEDS: hydrALAZINE HCL 25 MG TABLET PO ×2 (13:17→17:33)
--- NOTE | 2024-09-03 14:36 | PCPTNOTE ---
Attempted to see patient for PT, however patient unable to wake up enough to participate with PT. Patient would open her eyes when asked, then close them back up. Patient unable to keep eyes open.
[2024-09-03 16:45] LABS: Glucose Point of Care 214 mg/dl (65-105)
[2024-09-03] MEDS: INSULIN ASPART (*BKC) 100 UNITS/ML SUB-Q (17:33)
[2024-09-03] MEDS: AMOXICILLIN/CLAVULANATE K 500-125 MG TAB 1 TABLET PO (21:57)
[2024-09-03] MEDS: traZODone HCL 50 MG TABLET PO (21:57)
[2024-09-03] MEDS: ATORVASTATIN 20 MG TABLET PO (21:57)
[2024-09-03 22:37] LABS: Glucose Point of Care 134 mg/dl (65-105)
[2024-09-03] MEDS: INSULIN GLARGINE (*BKC) 100 UNITS/ML 18 UNITS SUB-Q (23:27)
[2024-09-03 23:29] LABS: Glucose Point of Care 153 mg/dl (65-105)
[2024-09-04] VITALS (7 sets, daily range): BP systolic 125–155; BP diastolic 41–73; PULSE 53–66; RESP 16; TEMP 36.2–36.8; O2SAT 96–98
[2024-09-04] MEDS: LEVOTHYROXINE SODIUM 100 MCG, LEVOTHYROXINE SODIUM 75 MCG 175 MCG PO (05:11)
[2024-09-04 05:27] LABS: Basophils Absolute Auto 0.1 K/mm3 (0.0-0.1); Eosinophils Absolute Auto 0.7 K/mm3 (0-0.3); Eosinophils Percent Auto 7.2 % (0-4.4); Hematocrit 31.6 % (37.0-47.0); Hemoglobin 9.5 g/dL (12.0-15.0); Immature Granulocyte Absolute 0.04 K/mm3 (0.00-0.031); Immature Granulocyte Percent A 0.4 % (0-0.5); Lymphocytes Absolute Auto 2.16 K/mm3 (0.9-3.2); Lymphocytes Percent Auto 23.8 % (18.3-44.2); Mean Corpuscular HGB Conc 30.1 g/dl (32-36); Mean Corpuscular Volume 96.3 fl (80-100); Monocytes Absolute Auto 0.9 K/mm3 (0.1-0.6); Monocytes Percent Auto 10.1 % (2.6-8.5); Neutrophils Absolute Auto 5.2 K/mm3 (1.3-6.7); Neutrophils Percent Auto 57.5 % (45.5-73.1); Platelet Count Result 263 k/mm3 (150-375); Red Blood Count 3.28 M/mm3 (4.2-5.4); White Blood Count 9.1 K/mm3 (4.5-10.0)
[2024-09-04 05:46] LABS: Alanine Aminotransferase 11 U/L (6-35); Albumin Level 3.4 g/dL (3.5-5.1); Alkaline Phosphatase 95 U/L (38-126); Anion Gap 8 mmol/L (4-12); Aspartate Amino Transferase 16 U/L (14-36); Bilirubin,Total 0.6 mg/dL (0.2-1.3); Blood Urea Nitrogen 17 mg/dL (7-17); Calcium 8.7 mg/dL (8.4-10.2); Carbon Dioxide 29 mmol/L (22-30); Chloride 101 mmol/L (98-107); Estimated CRCL calculation 14 ml/min; Estimated Glomerular Filt Rate 13; Glucose 126 mg/dL (65-110); Potassium 3.5 mmol/L (3.4-5.0); Sodium 138 mmol/L (137-145)
[2024-09-04 08:09] LABS: Glucose Point of Care 108 mg/dl (65-105)
[2024-09-04] MEDS: FLUTICASONE/SALMETEROL 115-21 MCG INHALER 1 PUFF 2 PUFF INHALATION ×2 (08:25→20:08)
[2024-09-04] MEDS: AMIODARONE HCL 200 MG TABLET PO (09:05)
[2024-09-04] MEDS: APIXABAN 2.5 MG TABLET PO ×2 (09:05→20:39)
[2024-09-04] MEDS: ISOSORBIDE MONONITRATE 30 MG TAB.ER.24H PO (09:05)
[2024-09-04] MEDS: METOPROLOL SUCCINATE EXT REL 50 MG TABCR PO (09:05)
[2024-09-04] MEDS: rOPINIRole HCL 0.5 MG TABLET PO ×2 (09:06→20:39)
[2024-09-04] MEDS: MONTELUKAST SODIUM 10 MG TABLET PO (09:06)
[2024-09-04] MEDS: AMOXICILLIN/CLAVULANATE K 500-125 MG TAB 1 TABLET PO ×2 (09:06→20:39)
[2024-09-04] MEDS: ACETAMINOPHEN 325 MG TABLET 650 MG PO (09:09)
[2024-09-04] MEDS: FLUTICASONE PROPIONATE 0.05% NA SPR 16 GM BTL (*BKC) 2 SPRAY NASAL (09:10)
--- NOTE | 2024-09-04 10:58 | PCOTNOTE ---
Per RN, Patient has new x-ray results, RN having an ortho consult placed. Will check back with a follow up.
--- NOTE | 2024-09-04 12:20 | PCPTNOTE ---
The patient treatment was not able to be completed on 09/04/2024 due to waiting on ortho consult from new x-ray results. Will plan to continue treatment per plan of care.
--- NOTE | 2024-09-04 12:35 | P.PNNP_ITS ---
Progress Note: A&P Assessment and Plan (1) End stage renal disease: Code(s): N18.6 - End stage renal disease Status: Acute Assessment and Plan: * HD tomorrow * continue M// outpatient dialysis schedule * follow electrolytes, volume status, and clearance (2) AMS (altered mental status): Qualifiers: Altered mental status type: unspecified Qualified Code(s): R41.82 - Altered mental status, unspecified Code(s): R41.82 - Altered mental status, unspecified Status: Acute Assessment and Plan: * seems better at this time * difficult to assess degree of altered mental status due to patient's baseline communication deficits from previous CVA and expressive aphasia * however, family reports her behavior has change at home * possibly secondary to UTI??? * CT of head negative for acute pathology * follow mentation... (3) UTI (urinary tract infection): Code(s): N39.0 - Urinary tract infection, site not specified Status: Resolved Assessment and Plan: * admission UA highly suggestive * follow culture data - Proteus Mirabilis noted * on antibiotics (4) Bilateral pubic rami fractures: Code(s): S32.591A - Other specified fracture of right pubis, initial encounter for closed fracture; S32.592A - Other specified fracture of left pubis, initial encounter for closed fracture Status: Acute Assessment and Plan: * as suggested/noted by hip x-rays * due to fall prior to admission(?) * Orthopedic Surgery consulted for further evaluation (5) Anemia: Code(s): D64.9 - Anemia, unspecified Status: Chronic Assessment and Plan: * due to ESRD * Epogen with HD * follow trend of H/H (6) Atrial fibrillation: Code(s): I48.91 - Unspecified atrial fibrillation Status: Chronic Assessment and Plan: * on amiodarone * on anticoagulation (Eliquis) (7) Hypertension: Qualifiers: Hypertension type: unspecified Qualified Code(s): I10 - Essential (primary) hypertension Code(s): I10 - Essential (primary) hypertension Status: Chronic Assessment and Plan: * reasonable control * resume home medications * consider titration of isosorbide versus hydralazine if needed * follow trend of hemodynamics (8) Type 2 diabetes mellitus with hyperglycemia: Qualifiers: Diabetes mellitus halfway insulin use: with halfway use Qualified Code(s): E11.65 - Type 2 diabetes mellitus with hyperglycemia; Z79.4 - jail (current) use of insulin Code(s): E11.65 - Type 2 diabetes mellitus with hyperglycemia Status: Chronic Assessment and Plan: * follow accu-cheks * glycemic control per hospitalists. Will continue to follow. L Subjective Date/time seen: 09/04/24 12:35 Interval history: Follow-up for end stage renal disease on hemodialysis. Tolerated dialysis treatment yesterday without any issues or problems; no other acute issues or events overnight or earlier this morning; urine culture results noted; mentation seems stable if not back to baseline; hip x-rays yesterday note bilateral left pubic superior pubic rami is noted so Orthopedics consulted; no apparent distress noted at the time of my visit. Exam 2 Narrative: General: elderly but WD/WN female in NAD Heart: normal S1 and S2; no rub Lungs: clear anteriorly; decreased at bases Abdomen: soft, nontender, nondistended, positive bowel sounds Extremities: no cyanosis or clubbing; trace edema Skin: warm and intact Objective Data Vital Signs Vital Signs: Vital Signs Temp Pulse Resp BP Pulse Ox O2 Del Method 09/04/24 12:33 151/45 H 09/04/24 09:05 66 09/04/24 09:05 66 09/04/24 09:04 66 125/49 L 96 09/04/24 08:00 Room Air 09/04/24 05:07 98.2 F 53 L 16 153/49 H 98 09/03/24 22:15 97.6 F 60 16 139/47 L 96 09/03/24 21:48 Room Air 09/03/24 19:54 57 L 17 09/03/24 17:31 120/58 L 09/03/24 14:00 98.1 F 96 16 128/60 100 Intake/Output Intake/Output: Intake & Output 09/01/24 09/02/24 09/03/24 09/04/24 23:59 23:59 23:59 23:59 Intake Total 50 1100 990 486 Output Total 50 150 3000 0 Balance 0 950 -2010 486 Meds/Results Medications: Active Medications Generic Name Dose Route Start Last Admin Trade Name Freq PRN Reason Stop Dose Admin Acetaminophen 650 mg 09/01/24 21:39 09/04/24 09:09 Acetaminophen 325 Mg Tablet PO 650 mg Q4H PRN Administration Mild Pain (1-3) or Fever Albuterol 2.5 mg 09/02/24 02:38 Albuterol Sulfate Neb 2.5 Mg/3 Ml Inh INHALATION Q4-6H PRN shortness of breath or wheezing Amiodarone HCl 200 mg 09/02/24 09:00 09/04/24 09:05 Amiodarone Hcl 200 Mg Tablet PO 200 mg QAM ALINA Administration Amoxicillin/Clavulanate Potassium 1 tablet 09/03/24 21:00 09/04/24 09:06 Amoxicillin/Clavulanate K 500-125 Mg Tab PO 09/08/24 09:01 1 tablet Q12HR ALINA Administration Apixaban 2.5 mg 09/02/24 09:00 09/04/24 09:05 Apixaban 2.5 Mg Tablet PO 2.5 mg Q12HR ALINA Administration Atorvastatin Calcium 20 mg 09/02/24 21:00 09/03/24 21:57 Atorvastatin 20 Mg Tablet PO 20 mg HS ALINA Administration Dextrose 12.5 gm 09/02/24 11:49 Dextrose 50% 25 Gm/50 Ml Syringe IV PUSH PRN PRN Hypoglycemia Protocol Fluticasone Propionate 2 spray 09/02/24 09:00 09/04/24 09:10 Fluticasone Propionate 0.05% Na Spr 16 Gm Btl (*Bkc) NASAL 2 spray DAILY ALINA Administration Glucagon 1 mg 09/02/24 11:49 Glucagon For Inj 1 Mg Vial IM PRN PRN Hypoglycemia Protocol Glucose 15 gm 09/02/24 11:49 Glucose Oral Gel 15 Gm Of Glucse In 37.5 Gm Tube PO PRN PRN Hypoglycemia Protocol Hydralazine HCl 10 mg 09/02/24 02:40 Hydralazine Hcl 20 Mg/Ml Vial IV PUSH Q4H PRN SBP greater than 180 Hydralazine HCl 25 mg 09/03/24 09:00 09/04/24 13:03 Hydralazine Hcl 25 Mg Tablet PO 25 mg TID ALINA Administration Dextrose 1,000 mls @ 100 mls/hr 09/02/24 11:49 Dextrose 5% 1,000 Ml IVPB PRN PRN Hypoglycemia Protocol Albumin Human 50 mls @ 999 mls/hr 09/03/24 06:14 Albutein IVPB 10/03/24 06:13 Q10M PRN HYPOTENSION Insulin Aspart 4 - 8 units 09/02/24 12:00 09/04/24 13:04 Insulin Aspart (*Bkc) 100 Units/Ml SUB-Q 4 units TIDWM ALINA Administration Protocol Insulin Aspart 2 - 4 units 09/02/24 21:00 09/03/24 22:12 Insulin Aspart (*Bkc) 100 Units/Ml SUB-Q Not Given HS [facility] Protocol Insulin Glargine 18 units 09/02/24 21:00 09/03/24 23:27 Insulin Glargine (*Bkc) 100 Units/Ml SUB-Q 18 units HS ALINA Administration Isosorbide Mononitrate 30 mg 09/02/24 15:00 09/04/24 09:05 Isosorbide Mononitrate 30 Mg Tab.Er.24h PO 30 mg QAM ALINA Administration Levothyroxine Sodium 100 mcg/ 175 mcg 09/02/24 06:30 09/04/24 05:11 Levothyroxine Sodium 75 mcg PO 175 mcg DAILY@0630 ALINA Administration Lorazepam 0.5 mg 09/02/24 02:38 Lorazepam (*Crx) 0.5 Mg Tablet PO DAILY PRN anxiety Metoprolol Succinate 50 mg 09/02/24 09:00 09/04/24 09:05 Metoprolol Succinate Ext Rel 50 Mg Tabcr PO 50 mg QAM ALINA Administration Montelukast Sodium 10 mg 09/02/24 09:00 09/04/24 09:06 Montelukast Sodium 10 Mg Tablet PO 10 mg DAILY ALINA Administration Ropinirole HCl 0.5 mg 09/02/24 09:00 09/04/24 09:06 Ropinirole Hcl 0.5 Mg Tablet PO 0.5 mg Q12HR ALINA Administration Fluticasone/Salmeterol 2 puff 09/02/24 08:00 09/04/24 08:25 Fluticasone/Salmeterol 115-21 Mcg Inhaler 1 Puff INHALATION 2 puff Q12HRT ALINA Administration Trazodone HCl 50 mg 09/02/24 21:00 09/03/24 21:57 Trazodone Hcl 50 Mg Tablet PO 50 mg QHS ALINA Administration Radiology Results: ITS Impressions Head CT 09/01/24 18:36 IMPRESSION: No acute intracranial process. Chest X-Ray 09/01/24 19:13 IMPRESSION: Pulmonary vascular congestion. Subsegmental left basilar atelectasis/consolidation. Hip X-Ray 09/03/24 17:12 IMPRESSION: Fracture of the right superior pubic ramus. Possibility of fracture of the right inferior pubic ramus is not excluded. XR hip RT min 2V, XR hip LT min 2V Ordering provider: Fabio Escamilla MD History: . leg pain . Comparison: None. FINDINGS: BONES: Sclerotic changes with Highly suggestive fracture in the left pubic superior pubic ramus is noted. Fracture of the left inferior pubic ramus is not excluded. HIP JOINT SPACES: Severe narrowing suggestive of osteoarthritic changes. SACROILIAC JOINT SPACES/LUMBAR SPINE: The sacroiliac joint spaces are normal. Mild degenerative changes of the visualized lower lumbar spine. PUBIC SYMPHYSIS: Pubic symphysitis. SOFT TISSUES: Normal. IMPRESSION: Highly suggestive fracture of the left superior pubic ramus. Fracture of the left inferior pubic ramus cannot be excluded. CT of the pelvis is advised for better evaluation. Hip X-Ray 09/03/24 17:12 IMPRESSION: Fracture of the right superior pubic ramus. Possibility of fracture of the right inferior pubic ramus is not excluded. XR hip RT min 2V, XR hip LT min 2V Ordering provider: Fabio Escamilla MD History: . leg pain . Comparison: None. FINDINGS: BONES: Sclerotic changes with Highly suggestive fracture in the left pubic superior pubic ramus is noted. Fracture of the left inferior pubic ramus is not excluded. HIP JOINT SPACES: Severe narrowing suggestive of osteoarthritic changes. SACROILIAC JOINT SPACES/LUMBAR SPINE: The sacroiliac joint spaces are normal. Mild degenerative changes of the visualized lower lumbar spine. PUBIC SYMPHYSIS: Pubic symphysitis. SOFT TISSUES: Normal. IMPRESSION: Highly suggestive fracture of the left superior pubic ramus. Fracture of the left inferior pubic ramus cannot be excluded. CT of the pelvis is advised for better evaluation. Labs Labs: Laboratory Tests 09/04/24 04:48 09/04/24 04:48 Calcium 8.7 Magnesium 2.0 Total Bilirubin 0.6 AST 16 ALT 11 Alkaline Phosphatase 95 Total Protein 7.0 Albumin 3.4 L Microbiology 09/01/24 18:21 Urine Catheterized Urine Culture - Final Proteus Mirabilis
[2024-09-04 12:56] LABS: Glucose Point of Care 231 mg/dl (65-105)
[2024-09-04] MEDS: hydrALAZINE HCL 25 MG TABLET PO ×2 (13:03→17:14)
[2024-09-04] MEDS: INSULIN ASPART (*BKC) 100 UNITS/ML SUB-Q ×3 (13:04→20:46)
--- NOTE | 2024-09-04 14:31 | P.CONOP_ITS ---
Assessment and Plan Assessment and plan (1) Pain: Code(s): R52 - Pain, unspecified Status: Acute Assessment and Plan: Patient is a 73-year-old female that I am asked to see for evaluation of possible right superior pubic ramus fracture. Patient was brought to the hospital 2 days ago by her who found that she was staring off into space scant and he was concerned she might be having another stroke. She had a severe stroke December 25, 2023 and has suffered from severe aphasia since that time. She cannot provide history has her speech is unintelligible today. She is alert. Seven days ago she was found on her right side next to a normal size chair that she had fallen out of. Since that time whenever she is helped from a lateral decubitus position to a sitting position while in bed she winces as if she is having significant pain. She relies on a walker to ambulate and her ability to ambulate with a walker has not really changed nor has her ability to stand up from a sitting position to take a few steps according to her 's observations. AP and frogleg lateral x-rays were obtained of both hips on admission in the radiologist thought there might be evidence of a superior pubic ramus fracture on the right. That conclusion is certainly not on equivocal and it is possible this might be an artifact appearance from the overlying shadows of the sacrum and bowel gas I think. Therefore I have recommended obtaining a CT of the pelvis without contrast for definitive evaluation to rule in or rule out any pelvic fractures. Based on the fact that she has her worst pain sitting up from a lateral decubitus position which has occurred on a repeated basis and does not have apparent difficulty standing up from a sitting position or walking with a walker, I am also going to obtain x-rays of her thoracic and lumbar spine to rule out compression fracture. Physical examination On exam today she had full passive range of motion of her right hip and showed no signs of any discomfort or guarding. I will see her again after we have the imaging studies completed as discussed above. 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 Paroxysmal atrial fibrillation Bilateral primary osteoarthritis of knee Renal osteodystrophy DVT of lower extremity (deep venous thrombosis) Asthma-COPD overlap syndrome Left-sided cerebrovascular accident (CVA) (01/04/24) With residual left-sided visual neglect, profound expressive aphasia and right-sided hemiplegia ESRD on hemodialysis (02/17/22) Chronic anticoagulation Obstructive sleep apnea Hypothyroidism Insulin dependent type 2 diabetes mellitus Generalized anxiety disorder Chronic obstructive pulmonary disease Chronic diastolic (congestive) heart failure Coronary artery disease involving [place] heart without angina pectoris Depression GERD without esophagitis Peripheral polyneuropathy Surgical History Surgical History (Updated 09/02/24 @ 04:12 by Gwen Jaimes DO) History of tracheostomy (04/24/22) With subsequent removal History of cataract extraction History of tonsillectomy History of cholecystectomy History of gastrostomy tube placement and removal Family History Family History Father Hypertension Family history of coronary artery disease Sibling Hypertension Family history of coronary artery disease Mother Cerebrovascular accident Other Asthma Depression Family history of Alzheimer's disease Family history of arthritis Family history of cardiovascular disease Family history of lymphoma Family history of obesity Family history of seizure disorder Social History Social History Social History: Surrogate medical decision maker: Anjum (spouse) or Gwen (daughter) Kyra. Code status: Full code. Smoking packs per day: 2 Smoking cigarettes per day: 40.0 Years smoked: 30 Smoking pack-years: 60.00 Smoking status: Former smoker Tobacco type: cigarettes Second hand tobacco smoke exposure: No Smoking end date: 05/07/89 Alcohol intake: never Alcohol use details: special occasions Substance use: never Substance use type: marijuana Last use: 01/05/23 Do You Feel Safe in your Home?: Yes Lack of Transportation: No Lack of Food: Never True Current Housing: I Have Housing Concerned About Future Housing: No Difficulty Paying Gas/Electric Bills: No Difficulty Paying for Meds: No Currently Unemployed: No Education: High School Diploma/GED Difficulty w/ Childcare or Family Care: No Living arrangements: with family Occupation/Education: retired Spiritual care concerns: No Meds Home Medications and Allergies Home Medications ?Medication ?Instructions ?Recorded ?Confirmed ?Type fluticasone propionate 50 2 spray intranasal DAILY 03/19/19 09/01/24 History mcg/actuation nasal spray,suspension albuterol sulfate 2.5 mg/3 mL 2.5 mg (3 mL) inhalation Q4-6H PRN 07/10/23 09/01/24 Rx (0.083 %) solution for nebulization shortness of breath or wheezing #90 mL Ventolin HFA 90 mcg/actuation See Rx Instructions .Route 05/20/24 09/02/24 Rx aerosol inhaler (albuterol sulfate) .COMPLEX #18 grams insulin aspart U-100 100 unit/mL See Rx Instructions .Route .COMPLEX 05/20/24 09/02/24 History (3 mL) subcutaneous pen (Novolog FlexPen U-100 Insulin aspart) metoprolol succinate 50 mg 50 mg PO QAM #90 tabs 05/20/24 09/01/24 Rx tablet,extended release 24 hr atorvastatin 20 mg tablet (Lipitor) 20 mg PO HS #90 tabs 07/04/24 09/01/24 Rx lorazepam 0.5 mg tablet (Ativan) 0.5 mg PO DAILY PRN anxiety 07/04/24 09/02/24 History montelukast 10 mg tablet 10 mg PO DAILY #90 tabs 07/04/24 09/01/24 Rx levothyroxine 175 mcg tablet 175 mcg PO DAILY #90 tabs 07/07/24 09/01/24 Rx budesonide-formoterol HFA 160 2 puff inhalation Q12H #10.2 grams 07/17/24 09/01/24 Rx mcg-4.5 mcg/actuation aerosol inhaler trazodone 50 mg tablet 50 mg PO QHS #30 tabs 07/24/24 09/01/24 Rx apixaban 2.5 mg tablet (Eliquis) See Rx Instructions PO .COMPLEX 07/29/24 09/01/24 Rx #180 tabs amiodarone 200 mg tablet 200 mg PO QAM 09/02/24 09/01/24 History insulin glargine 100 unit/mL (3 18 unit subcut QPM 09/02/24 09/01/24 History mL) subcutaneous pen (Lantus Solostar U-100 Insulin) ropinirole 2 mg tablet 0.5 mg PO Q12H 09/02/24 09/01/24 History Allergies Allergy/AdvReac Type Severity Reaction Status Date / Time nickel Allergy Intermediate hives and Verified 06/12/24 13:35 itchy rash Sulfa (Sulfonamide Allergy Intermediate Urticaria Verified 06/12/24 13:35 Antibiotics) and hives Calcium Channel Blocking AdvReac Intermediate STATES Verified 06/12/24 13:35 Agents-Dih CANNOT TAKE SINCE SHE HAS ASTHMA diphenhydramine AdvReac Intermediate restless Verified 06/12/24 13:35 legs nifedipine AdvReac Intermediate palpitation Verified 06/12/24 13:35 s [id number]-[id number] Reductase AdvReac Intermediate muscle Verified 06/12/24 13:35 Inhibitor (Zfimbqq-Mri-Smc cramps Reductase Inhibitor) Vital Signs Vital Signs - 24 hr 09/03/24 17:31 09/03/24 19:54 09/03/24 21:48 Temperature Pulse Rate 57 L Respiratory Rate 17 Blood Pressure 120/58 L Pulse Oximetry Oxygen Delivery Room Air 09/03/24 22:15 09/04/24 05:07 09/04/24 08:00 Temperature 36.4 C 36.8 C Pulse Rate 60 53 L Respiratory Rate 16 16 Blood Pressure 139/47 L 153/49 H Pulse Oximetry 96 98 Oxygen Delivery Room Air 09/04/24 09:04 09/04/24 09:05 09/04/24 09:05 Temperature Pulse Rate 66 66 66 Respiratory Rate Blood Pressure 125/49 L Pulse Oximetry 96 Oxygen Delivery 09/04/24 13:03 09/04/24 14:00 Temperature 36.4 C L Pulse Rate 55 L Respiratory Rate 16 Blood Pressure 151/45 H 138/73 Pulse Oximetry 98 Oxygen Delivery Results Labs 09/04/24 04:48 09/04/24 04:48 Labs: Abnormal lab results 09/03/24 09/03/24 09/03/24 Range/Units 16:42 22:10 23:23 RBC (4.2-5.4) M/mm3 Hgb (12.0-15.0) g/dL Hct (37.0-47.0) % MCHC (32-36) g/dl RDW (11.5-14.5) % MPV (7.4-10.4) fl Branch % (Auto) (2.6-8.5) % Eos % (Auto) (0-4.4) % Branch # (Auto) (0.1-0.6) K/mm3 Eos # (Auto) (0-0.3) K/mm3 Abs Immat Gran (auto) (0.00-0.031) K/mm3 Creatinine (0.7-1.0) mg/dL Estimated GFR (59 - ) Glucose (65-110) mg/dL POC Capillary Glucose 214 H 134 H 153 H (65-105) mg/dl Albumin (3.5-5.1) g/dL 09/04/24 09/04/24 09/04/24 Range/Units 04:48 08:03 12:49 RBC 3.28 L (4.2-5.4) M/mm3 Hgb 9.5 L (12.0-15.0) g/dL Hct 31.6 L (37.0-47.0) % MCHC 30.1 L (32-36) g/dl RDW 15.0 H (11.5-14.5) % MPV 11.0 H (7.4-10.4) fl Branch % (Auto) 10.1 H (2.6-8.5) % Eos % (Auto) 7.2 H (0-4.4) % Branch # (Auto) 0.9 H (0.1-0.6) K/mm3 Eos # (Auto) 0.7 H (0-0.3) K/mm3 Abs Immat Gran (auto) 0.04 H (0.00-0.031) K/mm3 Creatinine 3.49 H (0.7-1.0) mg/dL Estimated GFR 13 L (59 - ) Glucose 126 H (65-110) mg/dL POC Capillary Glucose 108 H 231 H (65-105) mg/dl Albumin 3.4 L (3.5-5.1) g/dL H & H 09/01/24 09/03/24 09/04/24 Range/Units 18:21 05:53 04:48 Hgb 10.0 L 9.4 L 9.5 L (12.0-15.0) g/dL Hct 32.6 L 30.3 L 31.6 L (37.0-47.0) % Coagulation 09/01/24 Range/Units 18:21 INR 1.0 All other labs normal.
--- NOTE | 2024-09-04 14:48 | P.PNIM_ITS ---
Progress Note: A&P Assessment and Plan (1) UTI (urinary tract infection): Qualifiers: Hematuria presence: without hematuria Urinary tract infection type: acute cystitis Qualified Code(s): N30.00 - Acute cystitis without hematuria Code(s): N39.0 - Urinary tract infection, site not specified Status: Acute Assessment and Plan: Proteus mirabilis UTI, sensitive to Augmentin S/p Rocephin, now on Augmentin monitor (2) AMS (altered mental status): Qualifiers: Altered mental status type: unspecified Qualified Code(s): R41.82 - Altered mental status, unspecified Code(s): R41.82 - Altered mental status, unspecified Status: Acute Assessment and Plan: Patient is aphasic at baseline CT head unremarkable Awaiting PT/OT (3) Type 2 diabetes mellitus with hyperglycemia: Qualifiers: Diabetes mellitus nursing home insulin use: with nursing home use Qualified Code(s): E11.65 - Type 2 diabetes mellitus with hyperglycemia; Z79.4 - superintendent terminal (current) use of insulin Code(s): E11.65 - Type 2 diabetes mellitus with hyperglycemia Status: Chronic Assessment and Plan: SSI with accucheks, continue home Lantus (4) Hypertension: Qualifiers: Hypertension type: unspecified Qualified Code(s): I10 - Essential (primary) hypertension Code(s): I10 - Essential (primary) hypertension Status: Chronic Assessment and Plan: BP much better today started Isosorbide mononitrate, and Hydralazine 25mg tid continue Metoprolol (5) Pseudohyponatremia: Code(s): R79.89 - Other specified abnormal findings of blood chemistry Status: Acute Assessment and Plan: Resolved (6) Prolonged QT interval: Code(s): R94.31 - Abnormal electrocardiogram [ECG] [EKG] Status: Acute Assessment and Plan: No evidence of acute arrhythmia but QT prolongation noted on EKG. Will avoid QT prolonging medications. (7) ESRD on hemodialysis: Code(s): N18.6 - End stage renal disease; Z99.2 - Dependence on renal dialysis Status: Acute Assessment and Plan: Will consult Nephrology for hemodialysis Sunday (8) RLS (restless legs syndrome): Code(s): G25.81 - Restless legs syndrome Status: Acute Assessment and Plan: Will resume home Requip (9) Chronic anticoagulation: Code(s): Z79.01 - superintendent terminal (current) use of anticoagulants Status: Acute Assessment and Plan: Will continue home Eliquis (10) Hypothyroidism: Qualifiers: Hypothyroidism type: unspecified Qualified Code(s): E03.9 - Hypothyroidism, unspecified Code(s): E03.9 - Hypothyroidism, unspecified Status: Acute Assessment and Plan: Patient has an elevated TSH but T4 is also elevated. There is likely some component of euthyroid sick. Will continue home levothyroxine at current dosing. And recommend repeat labs to re-evaluate in 4-6 weeks once acute illness has resolved. Plan Right superior and inferior rami fracture Pelvic xray reviewed consulted ortho, evaluatd and recommended CT CT pending DVT prophylaxis on Eliquis Subjective Date/time seen: 09/04/24 14:48 Interval history: Complaining of right hip pain XR showed superior pubic and possible inferior pubic ramus fracture Review of Systems Review of Systems: Patient is unable to provide review of systems due to near complete expressive aphasia from prior stroke Exam Narrative: Weight 82.9 kg BMI 30.4 Const: Other: No acute distress, well-developed well-nourished, appears stated age HENMT: Other: Mucous membranes are tacky, no oral pharyngeal erythema, head is normocephalic atraumatic, mild right facial droop, mild left tongue deviation Eyes: Other: Pupils are equal and reactive, no scleral icterus, positive conjunctival pallor Neck: Other: No JVD, no lymphadenopathy Resp: Other: Clear to auscultation bilaterally, no increased work of breathing Cardio: Other: Regular rate, regular rhythm, 2+ bilateral pedal pulses, 2+ right radial pulse GI: Other: Soft, nontender, nondistended, positive bowel sounds : Other: Incontinent of urine Skin: Other: Scab to the top of the 2nd toe that is been present since the patient's stroke and is been slow in healing, no evidence of erythema or infection, no large areas of bruising, no pallor, non jaundice, normal temperature to touch Neuro: Other: Alert orient x1, right facial droop, normal muscle tone bilateral upper and lower extremities, but decreased strength of right organisational psychologist minimal compared to left, patient is unable to follow commands for repeat evaluation of extraocular movements, pupils are equal and reactive, patient is occasionally able to echo responses, she answers questions yes and no although accuracy answers is difficult to ascertain, she also has production of nonsensical sounds when she tries to answer questions. All of these are chronic findings since the patient's stroke Extrem: Other: No clubbing, no cyanosis no edema, upper extremity AV fistula Psych: Other: Pleasant and cooperative but confused Objective Data Vital Signs Vital Signs: Vital Signs - 24 hr 09/03/24 17:31 09/03/24 19:54 09/03/24 21:48 Temperature Pulse Rate 57 L Respiratory Rate 17 Blood Pressure 120/58 L Pulse Oximetry Oxygen Delivery Room Air 09/03/24 22:15 09/04/24 05:07 09/04/24 08:00 Temperature 97.6 F 98.2 F Pulse Rate 60 53 L Respiratory Rate 16 16 Blood Pressure 139/47 L 153/49 H Pulse Oximetry 96 98 Oxygen Delivery Room Air 09/04/24 09:04 09/04/24 09:05 09/04/24 09:05 Temperature Pulse Rate 66 66 66 Respiratory Rate Blood Pressure 125/49 L Pulse Oximetry 96 Oxygen Delivery 09/04/24 13:03 09/04/24 14:00 Temperature 97.5 F L Pulse Rate 55 L Respiratory Rate 16 Blood Pressure 151/45 H 138/73 Pulse Oximetry 98 Oxygen Delivery Intake/Output Intake/Output: Intake & Output 09/01/24 09/02/24 09/03/24 09/04/24 23:59 23:59 23:59 23:59 Intake Total 50 1100 990 826 Output Total 50 150 3000 0 Balance 0 950 -2010 826 Meds/Results Medications: Active Medications Generic Name Dose Route Start Last Admin Trade Name Freq PRN Reason Stop Dose Admin Acetaminophen 650 mg 09/01/24 21:39 09/04/24 09:09 Acetaminophen 325 Mg Tablet PO 650 mg Q4H PRN Administration Mild Pain (1-3) or Fever Albuterol 2.5 mg 09/02/24 02:38 Albuterol Sulfate Neb 2.5 Mg/3 Ml Inh INHALATION Q4-6H PRN shortness of breath or wheezing Amiodarone HCl 200 mg 09/02/24 09:00 09/04/24 09:05 Amiodarone Hcl 200 Mg Tablet PO 200 mg QAM ALINA Administration Amoxicillin/Clavulanate Potassium 1 tablet 09/03/24 21:00 09/04/24 09:06 Amoxicillin/Clavulanate K 500-125 Mg Tab PO 09/08/24 09:01 1 tablet Q12HR ALINA Administration Apixaban 2.5 mg 09/02/24 09:00 09/04/24 09:05 Apixaban 2.5 Mg Tablet PO 2.5 mg Q12HR ALINA Administration Atorvastatin Calcium 20 mg 09/02/24 21:00 09/03/24 21:57 Atorvastatin 20 Mg Tablet PO 20 mg HS ALINA Administration Dextrose 12.5 gm 09/02/24 11:49 Dextrose 50% 25 Gm/50 Ml Syringe IV PUSH PRN PRN Hypoglycemia Protocol Fluticasone Propionate 2 spray 09/02/24 09:00 09/04/24 09:10 Fluticasone Propionate 0.05% Na Spr 16 Gm Btl (*Bkc) NASAL 2 spray DAILY ALINA Administration Glucagon 1 mg 09/02/24 11:49 Glucagon For Inj 1 Mg Vial IM PRN PRN Hypoglycemia Protocol Glucose 15 gm 09/02/24 11:49 Glucose Oral Gel 15 Gm Of Glucse In 37.5 Gm Tube PO PRN PRN Hypoglycemia Protocol Hydralazine HCl 10 mg 09/02/24 02:40 Hydralazine Hcl 20 Mg/Ml Vial IV PUSH Q4H PRN SBP greater than 180 Hydralazine HCl 25 mg 09/03/24 09:00 09/04/24 13:03 Hydralazine Hcl 25 Mg Tablet PO 25 mg TID ALINA Administration Dextrose 1,000 mls @ 100 mls/hr 09/02/24 11:49 Dextrose 5% 1,000 Ml IVPB PRN PRN Hypoglycemia Protocol Albumin Human 50 mls @ 999 mls/hr 09/03/24 06:14 Albutein IVPB 10/03/24 06:13 Q10M PRN HYPOTENSION Insulin Aspart 4 - 8 units 09/02/24 12:00 09/04/24 13:04 Insulin Aspart (*Bkc) 100 Units/Ml SUB-Q 4 units TIDWM ALINA Administration Protocol Insulin Aspart 2 - 4 units 09/02/24 21:00 09/03/24 22:12 Insulin Aspart (*Bkc) 100 Units/Ml SUB-Q Not Given HS ALINA Protocol Insulin Glargine 18 units 09/02/24 21:00 09/03/24 23:27 Insulin Glargine (*Bkc) 100 Units/Ml SUB-Q 18 units HS ALINA Administration Isosorbide Mononitrate 30 mg 09/02/24 15:00 09/04/24 09:05 Isosorbide Mononitrate 30 Mg Tab.Er.24h PO 30 mg QAM ALINA Administration Levothyroxine Sodium 100 mcg/ 175 mcg 09/02/24 06:30 09/04/24 05:11 Levothyroxine Sodium 75 mcg PO 175 mcg DAILY@0630 ALINA Administration Lorazepam 0.5 mg 09/02/24 02:38 Lorazepam (*Crx) 0.5 Mg Tablet PO DAILY PRN anxiety Metoprolol Succinate 50 mg 09/02/24 09:00 09/04/24 09:05 Metoprolol Succinate Ext Rel 50 Mg Tabcr PO 50 mg QAM ALINA Administration Montelukast Sodium 10 mg 09/02/24 09:00 09/04/24 09:06 Montelukast Sodium 10 Mg Tablet PO 10 mg DAILY ALINA Administration Ropinirole HCl 0.5 mg 09/02/24 09:00 09/04/24 09:06 Ropinirole Hcl 0.5 Mg Tablet PO 0.5 mg Q12HR ALINA Administration Fluticasone/Salmeterol 2 puff 09/02/24 08:00 09/04/24 08:25 Fluticasone/Salmeterol 115-21 Mcg Inhaler 1 Puff INHALATION 2 puff Q12HRT ALINA Administration Trazodone HCl 50 mg 09/02/24 21:00 09/03/24 21:57 Trazodone Hcl 50 Mg Tablet PO 50 mg QHS ALINA Administration Radiology Results: ITS Impressions Head CT 09/01/24 18:36 IMPRESSION: No acute intracranial process. Chest X-Ray 09/01/24 19:13 IMPRESSION: Pulmonary vascular congestion. Subsegmental left basilar atelectasis/consolidation. Hip X-Ray 09/03/24 17:12 IMPRESSION: Fracture of the right superior pubic ramus. Possibility of fracture of the right inferior pubic ramus is not excluded. XR hip RT min 2V, XR hip LT min 2V Ordering provider: Fabio Escamilla MD History: . leg pain . Comparison: None. FINDINGS: BONES: Sclerotic changes with Highly suggestive fracture in the left pubic superior pubic ramus is noted. Fracture of the left inferior pubic ramus is not excluded. HIP JOINT SPACES: Severe narrowing suggestive of osteoarthritic changes. SACROILIAC JOINT SPACES/LUMBAR SPINE: The sacroiliac joint spaces are normal. Mild degenerative changes of the visualized lower lumbar spine. PUBIC SYMPHYSIS: Pubic symphysitis. SOFT TISSUES: Normal. IMPRESSION: Highly suggestive fracture of the left superior pubic ramus. Fracture of the left inferior pubic ramus cannot be excluded. CT of the pelvis is advised for better evaluation. Hip X-Ray 09/03/24 17:12 IMPRESSION: Fracture of the right superior pubic ramus. Possibility of fracture of the right inferior pubic ramus is not excluded. XR hip RT min 2V, XR hip LT min 2V Ordering provider: Fabio Escamilla MD History: . leg pain . Comparison: None. FINDINGS: BONES: Sclerotic changes with Highly suggestive fracture in the left pubic superior pubic ramus is noted. Fracture of the left inferior pubic ramus is not excluded. HIP JOINT SPACES: Severe narrowing suggestive of osteoarthritic changes. SACROILIAC JOINT SPACES/LUMBAR SPINE: The sacroiliac joint spaces are normal. Mild degenerative changes of the visualized lower lumbar spine. PUBIC SYMPHYSIS: Pubic symphysitis. SOFT TISSUES: Normal. IMPRESSION: Highly suggestive fracture of the left superior pubic ramus. Fracture of the left inferior pubic ramus cannot be excluded. CT of the pelvis is advised for better evaluation. Labs Labs: Laboratory Results - last 24 hr 09/03/24 09/03/24 09/03/24 16:42 22:10 23:23 WBC RBC Hgb Hct MCV MCH MCHC RDW Plt Count MPV Immature Gran % (Auto) Neut % (Auto) Lymph % (Auto) [place] % (Auto) Eos % (Auto) Baso % (Auto) Lymph # (Auto) [place] # (Auto) Eos # (Auto) Baso # (Auto) Abs Immat Gran (auto) Absolute Neuts (auto) Absolute Nucleated RBC Nucleated RBC % Sodium Potassium Chloride Carbon Dioxide Anion Gap BUN Creatinine Estim Creat Clear Calc Estimated GFR Glucose POC Capillary Glucose 214 H 134 H 153 H Calcium Magnesium Total Bilirubin AST ALT Alkaline Phosphatase Total Protein Albumin 09/04/24 09/04/24 09/04/24 04:48 08:03 12:49 WBC 9.1 RBC 3.28 L Hgb 9.5 L Hct 31.6 L MCV 96.3 MCH 29.0 MCHC 30.1 L RDW 15.0 H Plt Count 263 MPV 11.0 H Immature Gran % (Auto) 0.4 Neut % (Auto) 57.5 Lymph % (Auto) 23.8 [place] % (Auto) 10.1 H Eos % (Auto) 7.2 H Baso % (Auto) 1.0 Lymph # (Auto) 2.16 [place] # (Auto) 0.9 H Eos # (Auto) 0.7 H Baso # (Auto) 0.1 Abs Immat Gran (auto) 0.04 H Absolute Neuts (auto) 5.2 Absolute Nucleated RBC 0.000 Nucleated RBC % 0.0 Sodium 138 Potassium 3.5 Chloride 101 Carbon Dioxide 29 Anion Gap 8 BUN 17 D Creatinine 3.49 H Estim Creat Clear Calc 14 Estimated GFR 13 L Glucose 126 H POC Capillary Glucose 108 H 231 H Calcium 8.7 Magnesium 2.0 Total Bilirubin 0.6 AST 16 ALT 11 Alkaline Phosphatase 95 Total Protein 7.0 Albumin 3.4 L Quality VTE Prophylaxis VTE prophylaxis: pharmacologic ordered (Continue home Eliquis.)
[2024-09-04 16:56] LABS: Glucose Point of Care 205 mg/dl (65-105)
[2024-09-04] MEDS: ATORVASTATIN 20 MG TABLET PO (20:39)
[2024-09-04] MEDS: traZODone HCL 50 MG TABLET PO (20:39)
[2024-09-04] MEDS: INSULIN GLARGINE (*BKC) 100 UNITS/ML 18 UNITS SUB-Q (20:45)
[2024-09-04 21:48] LABS: Glucose Point of Care 252 mg/dl (65-105)
[2024-09-05] VITALS (19 sets, daily range): BP systolic 119–180; BP diastolic 36–102; PULSE 59–82; RESP 16–18; TEMP 36.4–37; O2SAT 95–99
[2024-09-05 05:02] LABS: Basophils Absolute Auto 0.1 K/mm3 (0.0-0.1); Basophils Percent Auto 0.5 % (0.2-1.2); Eosinophils Absolute Auto 0.6 K/mm3 (0-0.3); Eosinophils Percent Auto 5.6 % (0-4.4); Hematocrit 30.8 % (37.0-47.0); Hemoglobin 9.4 g/dL (12.0-15.0); Immature Granulocyte Absolute 0.06 K/mm3 (0.00-0.031); Immature Granulocyte Percent A 0.5 % (0-0.5); Lymphocytes Absolute Auto 1.54 K/mm3 (0.9-3.2); Lymphocytes Percent Auto 13.4 % (18.3-44.2); Mean Corpuscular HGB Conc 30.5 g/dl (32-36); Mean Corpuscular Hemoglobin 28.9 pg (26-34); Mean Corpuscular Volume 94.8 fl (80-100); Mean Platelet Volume 10.6 fl (7.4-10.4); Monocytes Absolute Auto 1.1 K/mm3 (0.1-0.6); Monocytes Percent Auto 9.2 % (2.6-8.5); Neutrophils Absolute Auto 8.2 K/mm3 (1.3-6.7); Neutrophils Percent Auto 70.8 % (45.5-73.1); Platelet Count Result 259 k/mm3 (150-375); Red Blood Count 3.25 M/mm3 (4.2-5.4); Red Cell Distribution Width 14.7 % (11.5-14.5); White Blood Count 11.5 K/mm3 (4.5-10.0)
[2024-09-05] MEDS: LEVOTHYROXINE SODIUM 100 MCG, LEVOTHYROXINE SODIUM 75 MCG 175 MCG PO (05:11)
[2024-09-05 05:16] LABS: Alanine Aminotransferase 12 U/L (6-35); Albumin Level 3.4 g/dL (3.5-5.1); Alkaline Phosphatase 104 U/L (38-126); Anion Gap 9 mmol/L (4-12); Aspartate Amino Transferase 17 U/L (14-36); Bilirubin,Total 0.5 mg/dL (0.2-1.3); Blood Urea Nitrogen 28 mg/dL (7-17); Calcium 8.3 mg/dL (8.4-10.2); Carbon Dioxide 27 mmol/L (22-30); Chloride 98 mmol/L (98-107); Estimated CRCL calculation 10 ml/min; Estimated Glomerular Filt Rate 9; Glucose 240 mg/dL (65-110); Magnesium 1.9 mg/dL (1.6-2.3); Potassium 3.6 mmol/L (3.4-5.0); Sodium 134 mmol/L (137-145)
[2024-09-05] MEDS: FLUTICASONE/SALMETEROL 115-21 MCG INHALER 1 PUFF 2 PUFF INHALATION (07:55)
[2024-09-05] MEDS: SODIUM CHLORIDE 0.9% IV 1,000 ML 999 ML IV CONT (08:18)
--- NOTE | 2024-09-05 09:25 | P.PNNP_ITS ---
Progress Note: A&P Assessment and Plan (1) End stage renal disease: Code(s): N18.6 - End stage renal disease Status: Acute Assessment and Plan: * HD today * continue M// outpatient dialysis schedule * follow electrolytes, volume status, and clearance (2) AMS (altered mental status): Qualifiers: Altered mental status type: unspecified Qualified Code(s): R41.82 - Altered mental status, unspecified Code(s): R41.82 - Altered mental status, unspecified Status: Acute Assessment and Plan: * seems better at this time * difficult to assess degree of altered mental status due to patient's baseline communication deficits from previous CVA and expressive aphasia * however, family reports her behavior has change at home * possibly secondary to UTI??? * CT of head negative for acute pathology * follow mentation... (3) UTI (urinary tract infection): Code(s): N39.0 - Urinary tract infection, site not specified Status: Resolved Assessment and Plan: * admission UA highly suggestive * follow culture data - Proteus Mirabilis noted * on antibiotics (4) Bilateral pubic rami fractures: Code(s): S32.591A - Other specified fracture of right pubis, initial encounter for closed fracture; S32.592A - Other specified fracture of left pubis, initial encounter for closed fracture Status: Inactive Assessment and Plan: * as suggested/noted by hip x-rays * HOWEVER, CT of pelvis does not demonstrate any fractures * Orthopedic Surgery following (5) Anemia: Code(s): D64.9 - Anemia, unspecified Status: Chronic Assessment and Plan: * due to ESRD * Epogen with HD * follow trend of H/H (6) Atrial fibrillation: Code(s): I48.91 - Unspecified atrial fibrillation Status: Chronic Assessment and Plan: * on amiodarone * on anticoagulation (Eliquis) (7) Hypertension: Qualifiers: Hypertension type: unspecified Qualified Code(s): I10 - Essential (primary) hypertension Code(s): I10 - Essential (primary) hypertension Status: Chronic Assessment and Plan: * reasonable control * resume home medications * consider titration of isosorbide versus hydralazine if needed * follow trend of hemodynamics (8) Type 2 diabetes mellitus with hyperglycemia: Qualifiers: Diabetes mellitus mcfp insulin use: with mcfp use Qualified Code(s): E11.65 - Type 2 diabetes mellitus with hyperglycemia; Z79.4 - care home (current) use of insulin Code(s): E11.65 - Type 2 diabetes mellitus with hyperglycemia Status: Chronic Assessment and Plan: * follow accu-cheks * glycemic control per hospitalists. Will continue to follow. L Subjective Date/time seen: 09/05/24 09:25 Interval history: Follow-up for end stage renal disease on hemodialysis. Tolerating dialysis treatment at the time of my visit (seen on HD at 9:15AM); no apparent distress noted; seen by Orthopedics and CT imaging noted; no other issues/events overnight or earlier this morning; mentatins seems relatively stable as well. Exam 2 Narrative: General: elderly but WD/WN female in NAD Heart: normal S1 and S2; no rub Lungs: clear anteriorly; decreased at bases Abdomen: soft, nontender, nondistended, positive bowel sounds Extremities: no cyanosis or clubbing; trace edema Skin: no rash Objective Data Vital Signs Vital Signs: Vital Signs Temp Pulse Resp BP Pulse Ox O2 Del Method 09/05/24 09:00 65 169/93 H 09/05/24 08:28 62 178/82 H 09/05/24 08:18 97.8 F 62 18 178/82 H 09/05/24 05:05 97.8 F 59 L 16 180/56 H 95 09/04/24 20:36 97.1 F L 56 L 16 155/43 H 98 09/04/24 20:35 Room Air 09/04/24 17:19 138/41 L 09/04/24 14:00 97.5 F L 55 L 16 138/73 98 09/04/24 13:03 151/45 H Intake/Output Intake/Output: Intake & Output 09/02/24 09/03/24 09/04/24 09/05/24 23:59 23:59 23:59 23:59 Intake Total 1100 990 994 200 Output Total 150 3000 0 300 Balance 994 -100 Meds/Results Medications: Active Medications Generic Name Dose Route Start Last Admin Trade Name Freq PRN Reason Stop Dose Admin Acetaminophen 650 mg 09/01/24 21:39 09/04/24 09:09 Acetaminophen 325 Mg Tablet PO 650 mg Q4H PRN Administration Mild Pain (1-3) or Fever Albuterol 2.5 mg 09/02/24 02:38 Albuterol Sulfate Neb 2.5 Mg/3 Ml Inh INHALATION Q4-6H PRN shortness of breath or wheezing Amiodarone HCl 200 mg 09/02/24 09:00 09/04/24 09:05 Amiodarone Hcl 200 Mg Tablet PO 200 mg QAM ALINA Administration Amoxicillin/Clavulanate Potassium 1 tablet 09/03/24 21:00 09/04/24 20:39 Amoxicillin/Clavulanate K 500-125 Mg Tab PO 09/08/24 09:01 1 tablet Q12HR ALINA Administration Apixaban 2.5 mg 09/02/24 09:00 09/04/24 20:39 Apixaban 2.5 Mg Tablet PO 2.5 mg Q12HR ALINA Administration Atorvastatin Calcium 20 mg 09/02/24 21:00 09/04/24 20:39 Atorvastatin 20 Mg Tablet PO 20 mg HS ALINA Administration Dextrose 12.5 gm 09/02/24 11:49 Dextrose 50% 25 Gm/50 Ml Syringe IV PUSH PRN PRN Hypoglycemia Protocol Epoetin Jorge Alberto-epbx 10,000 units 09/05/24 18:00 Epoetin Jorge Alberto-Epbx 10,000 Units/Ml Vial IV PUSH 09/05/24 18:01 ONCE ONE Fluticasone Propionate 2 spray 09/02/24 09:00 09/04/24 09:10 Fluticasone Propionate 0.05% Na Spr 16 Gm Btl (*Bkc) NASAL 2 spray DAILY ALINA Administration Glucagon 1 mg 09/02/24 11:49 Glucagon For Inj 1 Mg Vial IM PRN PRN Hypoglycemia Protocol Glucose 15 gm 09/02/24 11:49 Glucose Oral Gel 15 Gm Of Glucse In 37.5 Gm Tube PO PRN PRN Hypoglycemia Protocol Hydralazine HCl 10 mg 09/02/24 02:40 Hydralazine Hcl 20 Mg/Ml Vial IV PUSH Q4H PRN SBP greater than 180 Hydralazine HCl 25 mg 09/03/24 09:00 09/04/24 17:14 Hydralazine Hcl 25 Mg Tablet PO 25 mg TID ALINA Administration Dextrose 1,000 mls @ 100 mls/hr 09/02/24 11:49 Dextrose 5% 1,000 Ml IVPB PRN PRN Hypoglycemia Protocol Albumin Human 50 mls @ 999 mls/hr 09/03/24 06:14 Albutein IVPB 10/03/24 06:13 Q10M PRN HYPOTENSION Insulin Aspart 4 - 8 units 09/02/24 12:00 09/04/24 17:14 Insulin Aspart (*Bkc) 100 Units/Ml SUB-Q 4 units TIDWM ALINA Administration Protocol Insulin Aspart 2 - 4 units 09/02/24 21:00 09/04/24 20:46 Insulin Aspart (*Bkc) 100 Units/Ml SUB-Q 2 units HS ALINA Administration Protocol Insulin Glargine 18 units 09/02/24 21:00 09/04/24 20:45 Insulin Glargine (*Bkc) 100 Units/Ml SUB-Q 18 units HS ALINA Administration Isosorbide Mononitrate 30 mg 09/02/24 15:00 09/04/24 09:05 Isosorbide Mononitrate 30 Mg Tab.Er.24h PO 30 mg QAM ALINA Administration Levothyroxine Sodium 100 mcg/ 175 mcg 09/02/24 06:30 09/05/24 05:11 Levothyroxine Sodium 75 mcg PO 175 mcg DAILY@0630 ALINA Administration Lorazepam 0.5 mg 09/02/24 02:38 Lorazepam (*Crx) 0.5 Mg Tablet PO DAILY PRN anxiety Metoprolol Succinate 50 mg 09/02/24 09:00 09/04/24 09:05 Metoprolol Succinate Ext Rel 50 Mg Tabcr PO 50 mg QAM ALINA Administration Montelukast Sodium 10 mg 09/02/24 09:00 09/04/24 09:06 Montelukast Sodium 10 Mg Tablet PO 10 mg DAILY ALINA Administration Ropinirole HCl 0.5 mg 09/02/24 09:00 09/04/24 20:39 Ropinirole Hcl 0.5 Mg Tablet PO 0.5 mg Q12HR ALINA Administration Fluticasone/Salmeterol 2 puff 09/02/24 08:00 09/05/24 07:55 Fluticasone/Salmeterol 115-21 Mcg Inhaler 1 Puff INHALATION 2 puff Q12HRT ALINA Administration Trazodone HCl 50 mg 09/02/24 21:00 09/04/24 20:39 Trazodone Hcl 50 Mg Tablet PO 50 mg QHS ALINA Administration Radiology Results: ITS Impressions Head CT 09/01/24 18:36 IMPRESSION: No acute intracranial process. Chest X-Ray 09/01/24 19:13 IMPRESSION: Pulmonary vascular congestion. Subsegmental left basilar atelectasis/consolidation. Hip X-Ray 09/03/24 17:12 IMPRESSION: Fracture of the right superior pubic ramus. Possibility of fracture of the right inferior pubic ramus is not excluded. XR hip RT min 2V, XR hip LT min 2V Ordering provider: Fabio Escamilla MD History: . leg pain . Comparison: None. FINDINGS: BONES: Sclerotic changes with Highly suggestive fracture in the left pubic superior pubic ramus is noted. Fracture of the left inferior pubic ramus is not excluded. HIP JOINT SPACES: Severe narrowing suggestive of osteoarthritic changes. SACROILIAC JOINT SPACES/LUMBAR SPINE: The sacroiliac joint spaces are normal. Mild degenerative changes of the visualized lower lumbar spine. PUBIC SYMPHYSIS: Pubic symphysitis. SOFT TISSUES: Normal. IMPRESSION: Highly suggestive fracture of the left superior pubic ramus. Fracture of the left inferior pubic ramus cannot be excluded. CT of the pelvis is advised for better evaluation. Hip X-Ray 09/03/24 17:12 IMPRESSION: Fracture of the right superior pubic ramus. Possibility of fracture of the right inferior pubic ramus is not excluded. XR hip RT min 2V, XR hip LT min 2V Ordering provider: Fabio Escamilla MD History: . leg pain . Comparison: None. FINDINGS: BONES: Sclerotic changes with Highly suggestive fracture in the left pubic superior pubic ramus is noted. Fracture of the left inferior pubic ramus is not excluded. HIP JOINT SPACES: Severe narrowing suggestive of osteoarthritic changes. SACROILIAC JOINT SPACES/LUMBAR SPINE: The sacroiliac joint spaces are normal. Mild degenerative changes of the visualized lower lumbar spine. PUBIC SYMPHYSIS: Pubic symphysitis. SOFT TISSUES: Normal. IMPRESSION: Highly suggestive fracture of the left superior pubic ramus. Fracture of the left inferior pubic ramus cannot be excluded. CT of the pelvis is advised for better evaluation. Pelvis CT 09/04/24 15:33 IMPRESSION: Sclerotic changes in the left pubic bone and superior pubic ramus which may be due to old fracture. Osteomyelitis is less likely. Follow-up and clinical correlation advised. Lumbar Spine X-Ray 09/04/24 16:10 IMPRESSION: 1. Moderate thoracic spondylosis. 2. 15 degrees lumbar dextrocurvature with severe lower lumbar predominant spondylosis. Thoracic Spine X-Ray 09/04/24 16:10 IMPRESSION: 1. Moderate thoracic spondylosis. 2. 15 degrees lumbar dextrocurvature with severe lower lumbar predominant spondylosis. Labs Labs: Laboratory Tests 09/05/24 04:49 09/05/24 04:49 Calcium 8.3 L Magnesium 1.9 Total Bilirubin 0.5 AST 17 ALT 12 Alkaline Phosphatase 104 Total Protein 7.0 Albumin 3.4 L
--- NOTE | 2024-09-05 09:55 | P.PNIM_ITS ---
Progress Note: A&P Assessment and Plan (1) UTI (urinary tract infection): Qualifiers: Hematuria presence: without hematuria Urinary tract infection type: acute cystitis Qualified Code(s): N30.00 - Acute cystitis without hematuria Code(s): N39.0 - Urinary tract infection, site not specified Status: Acute Assessment and Plan: Proteus mirabilis UTI, sensitive to Augmentin S/p Rocephin, now on Augmentin monitor (2) AMS (altered mental status): Qualifiers: Altered mental status type: unspecified Qualified Code(s): R41.82 - Altered mental status, unspecified Code(s): R41.82 - Altered mental status, unspecified Status: Acute Assessment and Plan: Patient is aphasic at baseline CT head unremarkable Awaiting PT/OT (3) Type 2 diabetes mellitus with hyperglycemia: Qualifiers: Diabetes mellitus chcf insulin use: with chcf use Qualified Code(s): E11.65 - Type 2 diabetes mellitus with hyperglycemia; Z79.4 - terminal superintendent (current) use of insulin Code(s): E11.65 - Type 2 diabetes mellitus with hyperglycemia Status: Chronic Assessment and Plan: SSI with accucheks, continue home Lantus (4) Hypertension: Qualifiers: Hypertension type: unspecified Qualified Code(s): I10 - Essential (primary) hypertension Code(s): I10 - Essential (primary) hypertension Status: Chronic Assessment and Plan: BP much better today started Isosorbide mononitrate, and Hydralazine 25mg tid continue Metoprolol (5) Pseudohyponatremia: Code(s): R79.89 - Other specified abnormal findings of blood chemistry Status: Acute Assessment and Plan: Resolved (6) Prolonged QT interval: Code(s): R94.31 - Abnormal electrocardiogram [ECG] [EKG] Status: Acute Assessment and Plan: No evidence of acute arrhythmia but QT prolongation noted on EKG. Will avoid QT prolonging medications. (7) ESRD on hemodialysis: Code(s): N18.6 - End stage renal disease; Z99.2 - Dependence on renal dialysis Status: Acute Assessment and Plan: Will consult Nephrology for hemodialysis Sunday (8) RLS (restless legs syndrome): Code(s): G25.81 - Restless legs syndrome Status: Acute Assessment and Plan: Will resume home Requip (9) Chronic anticoagulation: Code(s): Z79.01 - terminal superintendent (current) use of anticoagulants Status: Acute Assessment and Plan: Will continue home Eliquis (10) Hypothyroidism: Qualifiers: Hypothyroidism type: unspecified Qualified Code(s): E03.9 - Hypothyroidism, unspecified Code(s): E03.9 - Hypothyroidism, unspecified Status: Acute Assessment and Plan: Patient has an elevated TSH but T4 is also elevated. There is likely some component of euthyroid sick. Will continue home levothyroxine at current dosing. And recommend repeat labs to re-evaluate in 4-6 weeks once acute illness has resolved. Plan Right superior and inferior rami fracture Pelvic xray reviewed CT pelvis showed possible fracture awaiting Ortho recs pRN pain control DVT prophylaxis on Eliquis PT/OT eval Subjective Date/time seen: 09/05/24 09:55 Interval history: Comfortable at bedside and awaiting ortho eval for discharge planning Review of Systems Review of Systems: Patient is unable to provide review of systems due to near complete expressive aphasia from prior stroke Exam Narrative: Weight 82.9 kg BMI 30.4 Const: Other: No acute distress, well-developed well-nourished, appears stated age HENMT: Other: Mucous membranes are tacky, no oral pharyngeal erythema, head is normocephalic atraumatic, mild right facial droop, mild left tongue deviation Eyes: Other: Pupils are equal and reactive, no scleral icterus, positive conjunctival pallor Neck: Other: No JVD, no lymphadenopathy Resp: Other: Clear to auscultation bilaterally, no increased work of breathing Cardio: Other: Regular rate, regular rhythm, 2+ bilateral pedal pulses, 2+ right radial pulse GI: Other: Soft, nontender, nondistended, positive bowel sounds : Other: Incontinent of urine Skin: Other: Scab to the top of the 2nd toe that is been present since the patient's stroke and is been slow in healing, no evidence of erythema or infection, no large areas of bruising, no pallor, non jaundice, normal temperature to touch Neuro: Other: Alert orient x1, right facial droop, normal muscle tone bilateral upper and lower extremities, but decreased strength of right sharepoint application architect minimal compared to left, patient is unable to follow commands for repeat evaluation of extraocular movements, pupils are equal and reactive, patient is occasionally able to echo responses, she answers questions yes and no although accuracy answers is difficult to ascertain, she also has production of nonsensical sounds when she tries to answer questions. All of these are chronic findings since the patient's stroke Extrem: Other: No clubbing, no cyanosis no edema, upper extremity AV fistula Psych: Other: Pleasant and cooperative but confused Objective Data Vital Signs Vital Signs: Vital Signs - 24 hr 09/04/24 13:03 09/04/24 14:00 09/04/24 17:19 Temperature 97.5 F L Pulse Rate 55 L Respiratory Rate 16 Blood Pressure 151/45 H 138/73 138/41 L Pulse Oximetry 98 Oxygen Delivery 09/04/24 20:35 09/04/24 20:36 09/05/24 05:05 Temperature 97.1 F L 97.8 F Pulse Rate 56 L 59 L Respiratory Rate 16 16 Blood Pressure 155/43 H 180/56 H Pulse Oximetry 98 95 Oxygen Delivery Room Air 09/05/24 08:18 09/05/24 08:28 09/05/24 09:00 Temperature 97.8 F Pulse Rate 62 62 65 Respiratory Rate 18 Blood Pressure 178/82 H 178/82 H 169/93 H Pulse Oximetry Oxygen Delivery 09/05/24 09:15 09/05/24 09:30 09/05/24 09:45 Temperature Pulse Rate 62 65 67 Respiratory Rate Blood Pressure 149/96 H 119/98 H 158/82 H Pulse Oximetry Oxygen Delivery Intake/Output Intake/Output: Intake & Output 09/02/24 09/03/24 09/04/24 09/05/24 23:59 23:59 23:59 23:59 Intake Total 1100 990 994 200 Output Total 150 3000 0 300 Balance 950 994 -100 Meds/Results Medications: Active Medications Generic Name Dose Route Start Last Admin Trade Name Freq PRN Reason Stop Dose Admin Acetaminophen 650 mg 09/01/24 21:39 09/04/24 09:09 Acetaminophen 325 Mg Tablet PO 650 mg Q4H PRN Administration Mild Pain (1-3) or Fever Albuterol 2.5 mg 09/02/24 02:38 Albuterol Sulfate Neb 2.5 Mg/3 Ml Inh INHALATION Q4-6H PRN shortness of breath or wheezing Amiodarone HCl 200 mg 09/02/24 09:00 09/04/24 09:05 Amiodarone Hcl 200 Mg Tablet PO 200 mg QAM ALINA Administration Amoxicillin/Clavulanate Potassium 1 tablet 09/03/24 21:00 09/04/24 20:39 Amoxicillin/Clavulanate K 500-125 Mg Tab PO 09/08/24 09:01 1 tablet Q12HR ALINA Administration Apixaban 2.5 mg 09/02/24 09:00 09/04/24 20:39 Apixaban 2.5 Mg Tablet PO 2.5 mg Q12HR ALINA Administration Atorvastatin Calcium 20 mg 09/02/24 21:00 09/04/24 20:39 Atorvastatin 20 Mg Tablet PO 20 mg HS ALINA Administration Dextrose 12.5 gm 09/02/24 11:49 Dextrose 50% 25 Gm/50 Ml Syringe IV PUSH PRN PRN Hypoglycemia Protocol Epoetin Jorge Alberto-epbx 10,000 units 09/05/24 18:00 Epoetin Jorge Alberto-Epbx 10,000 Units/Ml Vial IV PUSH 09/05/24 18:01 ONCE ONE Fluticasone Propionate 2 spray 09/02/24 09:00 09/04/24 09:10 Fluticasone Propionate 0.05% Na Spr 16 Gm Btl (*Bkc) NASAL 2 spray DAILY ALINA Administration Glucagon 1 mg 09/02/24 11:49 Glucagon For Inj 1 Mg Vial IM PRN PRN Hypoglycemia Protocol Glucose 15 gm 09/02/24 11:49 Glucose Oral Gel 15 Gm Of Glucse In 37.5 Gm Tube PO PRN PRN Hypoglycemia Protocol Hydralazine HCl 10 mg 09/02/24 02:40 Hydralazine Hcl 20 Mg/Ml Vial IV PUSH Q4H PRN SBP greater than 180 Hydralazine HCl 25 mg 09/03/24 09:00 09/04/24 17:14 Hydralazine Hcl 25 Mg Tablet PO 25 mg TID ALINA Administration Dextrose 1,000 mls @ 100 mls/hr 09/02/24 11:49 Dextrose 5% 1,000 Ml IVPB PRN PRN Hypoglycemia Protocol Albumin Human 50 mls @ 999 mls/hr 09/03/24 06:14 Albutein IVPB 10/03/24 06:13 Q10M PRN HYPOTENSION Insulin Aspart 4 - 8 units 09/02/24 12:00 09/04/24 17:14 Insulin Aspart (*Bkc) 100 Units/Ml SUB-Q 4 units TIDWM ALINA Administration Protocol Insulin Aspart 2 - 4 units 09/02/24 21:00 09/04/24 20:46 Insulin Aspart (*Bkc) 100 Units/Ml SUB-Q 2 units HS ALINA Administration Protocol Insulin Glargine 18 units 09/02/24 21:00 09/04/24 20:45 Insulin Glargine (*Bkc) 100 Units/Ml SUB-Q 18 units HS ALINA Administration Isosorbide Mononitrate 30 mg 09/02/24 15:00 09/04/24 09:05 Isosorbide Mononitrate 30 Mg Tab.Er.24h PO 30 mg QAM ALINA Administration Levothyroxine Sodium 100 mcg/ 175 mcg 09/02/24 06:30 09/05/24 05:11 Levothyroxine Sodium 75 mcg PO 175 mcg DAILY@0630 ALINA Administration Lorazepam 0.5 mg 09/02/24 02:38 Lorazepam (*Crx) 0.5 Mg Tablet PO DAILY PRN anxiety Metoprolol Succinate 50 mg 09/02/24 09:00 09/04/24 09:05 Metoprolol Succinate Ext Rel 50 Mg Tabcr PO 50 mg QAM ALINA Administration Montelukast Sodium 10 mg 09/02/24 09:00 09/04/24 09:06 Montelukast Sodium 10 Mg Tablet PO 10 mg DAILY ALINA Administration Ropinirole HCl 0.5 mg 09/02/24 09:00 09/04/24 20:39 Ropinirole Hcl 0.5 Mg Tablet PO 0.5 mg Q12HR ALINA Administration Fluticasone/Salmeterol 2 puff 09/02/24 08:00 09/05/24 07:55 Fluticasone/Salmeterol 115-21 Mcg Inhaler 1 Puff INHALATION 2 puff Q12HRT ALINA Administration Trazodone HCl 50 mg 09/02/24 21:00 09/04/24 20:39 Trazodone Hcl 50 Mg Tablet PO 50 mg QHS ALINA Administration Radiology Results: ITS Impressions Head CT 09/01/24 18:36 IMPRESSION: No acute intracranial process. Chest X-Ray 09/01/24 19:13 IMPRESSION: Pulmonary vascular congestion. Subsegmental left basilar atelectasis/consolidation. Hip X-Ray 09/03/24 17:12 IMPRESSION: Fracture of the right superior pubic ramus. Possibility of fracture of the right inferior pubic ramus is not excluded. XR hip RT min 2V, XR hip LT min 2V Ordering provider: Fabio Escamilla MD History: . leg pain . Comparison: None. FINDINGS: BONES: Sclerotic changes with Highly suggestive fracture in the left pubic superior pubic ramus is noted. Fracture of the left inferior pubic ramus is not excluded. HIP JOINT SPACES: Severe narrowing suggestive of osteoarthritic changes. SACROILIAC JOINT SPACES/LUMBAR SPINE: The sacroiliac joint spaces are normal. Mild degenerative changes of the visualized lower lumbar spine. PUBIC SYMPHYSIS: Pubic symphysitis. SOFT TISSUES: Normal. IMPRESSION: Highly suggestive fracture of the left superior pubic ramus. Fracture of the left inferior pubic ramus cannot be excluded. CT of the pelvis is advised for better evaluation. Hip X-Ray 09/03/24 17:12 IMPRESSION: Fracture of the right superior pubic ramus. Possibility of fracture of the right inferior pubic ramus is not excluded. XR hip RT min 2V, XR hip LT min 2V Ordering provider: Fabio Escamilla MD History: . leg pain . Comparison: None. FINDINGS: BONES: Sclerotic changes with Highly suggestive fracture in the left pubic superior pubic ramus is noted. Fracture of the left inferior pubic ramus is not excluded. HIP JOINT SPACES: Severe narrowing suggestive of osteoarthritic changes. SACROILIAC JOINT SPACES/LUMBAR SPINE: The sacroiliac joint spaces are normal. Mild degenerative changes of the visualized lower lumbar spine. PUBIC SYMPHYSIS: Pubic symphysitis. SOFT TISSUES: Normal. IMPRESSION: Highly suggestive fracture of the left superior pubic ramus. Fracture of the left inferior pubic ramus cannot be excluded. CT of the pelvis is advised for better evaluation. Pelvis CT 09/04/24 15:33 IMPRESSION: Sclerotic changes in the left pubic bone and superior pubic ramus which may be due to old fracture. Osteomyelitis is less likely. Follow-up and clinical correlation advised. Lumbar Spine X-Ray 09/04/24 16:10 IMPRESSION: 1. Moderate thoracic spondylosis. 2. 15 degrees lumbar dextrocurvature with severe lower lumbar predominant spondylosis. Thoracic Spine X-Ray 09/04/24 16:10 IMPRESSION: 1. Moderate thoracic spondylosis. 2. 15 degrees lumbar dextrocurvature with severe lower lumbar predominant spondylosis. Labs Labs: Laboratory Results - last 24 hr 09/04/24 09/04/24 09/04/24 12:49 16:51 20:26 WBC RBC Hgb Hct MCV MCH MCHC RDW Plt Count MPV Immature Gran % (Auto) Neut % (Auto) Lymph % (Auto) [place] % (Auto) Eos % (Auto) Baso % (Auto) Lymph # (Auto) [place] # (Auto) Eos # (Auto) Baso # (Auto) Abs Immat Gran (auto) Absolute Neuts (auto) Absolute Nucleated RBC Nucleated RBC % Sodium Potassium Chloride Carbon Dioxide Anion Gap BUN Creatinine Estim Creat Clear Calc Estimated GFR Glucose POC Capillary Glucose 231 H 205 H 252 H Calcium Magnesium Total Bilirubin AST ALT Alkaline Phosphatase Total Protein Albumin 09/05/24 04:49 WBC 11.5 H RBC 3.25 L Hgb 9.4 L Hct 30.8 L MCV 94.8 MCH 28.9 MCHC 30.5 L RDW 14.7 H Plt Count 259 MPV 10.6 H Immature Gran % (Auto) 0.5 Neut % (Auto) 70.8 Lymph % (Auto) 13.4 L Chambers % (Auto) 9.2 H Eos % (Auto) 5.6 H Baso % (Auto) 0.5 Lymph # (Auto) 1.54 Chambers # (Auto) 1.1 H Eos # (Auto) 0.6 H Baso # (Auto) 0.1 Abs Immat Gran (auto) 0.06 H Absolute Neuts (auto) 8.2 H Absolute Nucleated RBC 0.000 Nucleated RBC % 0.0 Sodium 134 L Potassium 3.6 Chloride 98 Carbon Dioxide 27 Anion Gap 9 BUN 28 H D Creatinine 4.91 H Estim Creat Clear Calc 10 Estimated GFR 9 L Glucose 240 H POC Capillary Glucose Calcium 8.3 L Magnesium 1.9 Total Bilirubin 0.5 AST 17 ALT 12 Alkaline Phosphatase 104 Total Protein 7.0 Albumin 3.4 L Quality VTE Prophylaxis VTE prophylaxis: pharmacologic ordered (Continue home Eliquis.)
--- NOTE | 2024-09-05 10:11 | PCOTNOTE ---
Patient is out od the room at this time. Patient is in dialysis at this time . Will try back at a later time.
--- NOTE | 2024-09-05 11:54 | PM.PNORT ---
Progress Note: A&P Assessment and Plan (1) Pain: Code(s): R52 - Pain, unspecified Status: Acute Plan Please see yesterday's note. I did ask Dr. Bledsoe the radiologist to review her CT scan of the pelvis from yesterday and he also felt that the mixed sclerotic changes in the left inferior pubic ramus, left pubic body, and left superior pubic ramus would be most consistent with Paget's disease. This does not require any specific treatment at this time. I also asked the radiologist to make an addendum on the reports of both hips which claimed that there is a right superior pubic ramus fracture as that conclusion was ruled out by the CT scan. He is going to do that. She has no known orthopedic injury at this time. There was no evidence of compression fracture in thoracic or lumbar spine although she does have rather severe lower lumbar spondylosis with vacuum phenomenon in the L4-5 disc space and it is possible that the expression of pain at her witness when he would move her from a lateral decubitus position to a sitting position was from symptoms of lower back pain associated with her severe lumbar spondylosis we see radiographically. The fact that she can walk around and her ability to walk is unchanged following the fall 2 weeks ago and that the only thing is changes soreness she seems to experience when she goes from lateral decubitus to sitting position would be consistent with exacerbation of lower back pain resulting from the fall 1 week ago. I am going to sign off at this point. Please contact me if further consultation is requested Subjective Subjective Date/Time Seen: 09/05/24 11:54 Objective Data Vital Signs Vital Signs: Vital Signs - 24 hr 09/04/24 13:03 09/04/24 14:00 09/04/24 17:19 Temperature 36.4 C L Pulse Rate 55 L Respiratory Rate 16 Blood Pressure 151/45 H 138/73 138/41 L Pulse Oximetry 98 Oxygen Delivery 09/04/24 20:35 09/04/24 20:36 09/05/24 05:05 Temperature 36.2 C L 36.6 C Pulse Rate 56 L 59 L Respiratory Rate 16 16 Blood Pressure 155/43 H 180/56 H Pulse Oximetry 98 95 Oxygen Delivery Room Air 09/05/24 08:00 09/05/24 08:18 09/05/24 08:28 Temperature 36.6 C Pulse Rate 62 62 Respiratory Rate 18 Blood Pressure 178/82 H 178/82 H Pulse Oximetry Oxygen Delivery Room Air 09/05/24 09:00 09/05/24 09:15 09/05/24 09:30 Temperature Pulse Rate 65 62 65 Respiratory Rate Blood Pressure 169/93 H 149/96 H 119/98 H Pulse Oximetry Oxygen Delivery 09/05/24 09:45 09/05/24 10:00 09/05/24 10:15 Temperature Pulse Rate 67 71 63 Respiratory Rate Blood Pressure 158/82 H 155/37 H 174/102 H Pulse Oximetry Oxygen Delivery 09/05/24 10:30 09/05/24 10:45 09/05/24 11:00 Temperature Pulse Rate 79 82 70 Respiratory Rate Blood Pressure 147/92 H 156/87 H 142/89 H Pulse Oximetry Oxygen Delivery 09/05/24 11:30 Temperature Pulse Rate 68 Respiratory Rate Blood Pressure 128/81 Pulse Oximetry Oxygen Delivery Intake/Output Intake/Output: Intake & Output 09/02/24 09/03/24 09/04/24 09/05/24 23:59 23:59 23:59 23:59 Intake Total 1100 990 994 200 Output Total 150 3000 0 300 Balance 950 -2009 994 -100 Meds/Results Medications: Active Medications Generic Name Dose Route Start Last Admin Trade Name Louisq PRN Reason Stop Dose Admin Acetaminophen 650 mg 09/01/24 21:39 09/04/24 09:09 Acetaminophen 325 Mg Tablet PO 650 mg Q4H PRN Administration Mild Pain (1-3) or Fever Albuterol 2.5 mg 09/02/24 02:38 Albuterol Sulfate Neb 2.5 Mg/3 Ml Inh INHALATION Q4-6H PRN shortness of breath or wheezing Amiodarone HCl 200 mg 09/02/24 09:00 09/04/24 09:05 Amiodarone Hcl 200 Mg Tablet PO 200 mg QAM ALINA Administration Amoxicillin/Clavulanate Potassium 1 tablet 09/03/24 21:00 09/04/24 20:39 Amoxicillin/Clavulanate K 500-125 Mg Tab PO 09/08/24 09:01 1 tablet Q12HR ALINA Administration Apixaban 2.5 mg 09/02/24 09:00 09/04/24 20:39 Apixaban 2.5 Mg Tablet PO 2.5 mg Q12HR ALINA Administration Atorvastatin Calcium 20 mg 09/02/24 21:00 09/04/24 20:39 Atorvastatin 20 Mg Tablet PO 20 mg HS ALINA Administration Dextrose 12.5 gm 09/02/24 11:49 Dextrose 50% 25 Gm/50 Ml Syringe IV PUSH PRN PRN Hypoglycemia Protocol Epoetin Jorge Alberto-epbx 10,000 units 09/05/24 18:00 Epoetin Jorge Alberto-Epbx 10,000 Units/Ml Vial IV PUSH 09/05/24 18:01 ONCE ONE Fluticasone Propionate 2 spray 09/02/24 09:00 09/04/24 09:10 Fluticasone Propionate 0.05% Na Spr 16 Gm Btl (*Bkc) NASAL 2 spray DAILY ALINA Administration Glucagon 1 mg 09/02/24 11:49 Glucagon For Inj 1 Mg Vial IM PRN PRN Hypoglycemia Protocol Glucose 15 gm 09/02/24 11:49 Glucose Oral Gel 15 Gm Of Glucse In 37.5 Gm Tube PO PRN PRN Hypoglycemia Protocol Hydralazine HCl 10 mg 09/02/24 02:40 Hydralazine Hcl 20 Mg/Ml Vial IV PUSH Q4H PRN SBP greater than 180 Hydralazine HCl 25 mg 09/03/24 09:00 09/04/24 17:14 Hydralazine Hcl 25 Mg Tablet PO 25 mg TID ALINA Administration Dextrose 1,000 mls @ 100 mls/hr 09/02/24 11:49 Dextrose 5% 1,000 Ml IVPB PRN PRN Hypoglycemia Protocol Albumin Human 50 mls @ 999 mls/hr 09/03/24 06:14 Albutein IVPB 10/03/24 06:13 Q10M PRN HYPOTENSION Insulin Aspart 4 - 8 units 09/02/24 12:00 09/05/24 11:12 Insulin Aspart (*Bkc) 100 Units/Ml SUB-Q Not Given TIDWM ALINA Protocol Insulin Aspart 2 - 4 units 09/02/24 21:00 09/04/24 20:46 Insulin Aspart (*Bkc) 100 Units/Ml SUB-Q 2 units HS ALINA Administration Protocol Insulin Glargine 18 units 09/02/24 21:00 09/04/24 20:45 Insulin Glargine (*Bkc) 100 Units/Ml SUB-Q 18 units HS ALINA Administration Isosorbide Mononitrate 30 mg 09/02/24 15:00 09/04/24 09:05 Isosorbide Mononitrate 30 Mg Tab.Er.24h PO 30 mg QAM ALINA Administration Levothyroxine Sodium 100 mcg/ 175 mcg 09/02/24 06:30 09/05/24 05:11 Levothyroxine Sodium 75 mcg PO 175 mcg DAILY@0630 ALINA Administration Lorazepam 0.5 mg 09/02/24 02:38 Lorazepam (*Crx) 0.5 Mg Tablet PO DAILY PRN anxiety Metoprolol Succinate 50 mg 09/02/24 09:00 09/04/24 09:05 Metoprolol Succinate Ext Rel 50 Mg Tabcr PO 50 mg QAM ALINA Administration Montelukast Sodium 10 mg 09/02/24 09:00 09/04/24 09:06 Montelukast Sodium 10 Mg Tablet PO 10 mg DAILY ALINA Administration Ropinirole HCl 0.5 mg 09/02/24 09:00 09/04/24 20:39 Ropinirole Hcl 0.5 Mg Tablet PO 0.5 mg Q12HR ALINA Administration Fluticasone/Salmeterol 2 puff 09/02/24 08:00 09/05/24 07:55 Fluticasone/Salmeterol 115-21 Mcg Inhaler 1 Puff INHALATION 2 puff Q12HRT ALINA Administration Trazodone HCl 50 mg 09/02/24 21:00 09/04/24 20:39 Trazodone Hcl 50 Mg Tablet PO 50 mg QHS ALINA Administration Radiology Results: ITS Impressions Head CT 09/01/24 18:36 IMPRESSION: No acute intracranial process. Chest X-Ray 09/01/24 19:13 IMPRESSION: Pulmonary vascular congestion. Subsegmental left basilar atelectasis/consolidation. Hip X-Ray 09/03/24 17:12 IMPRESSION: Fracture of the right superior pubic ramus. Possibility of fracture of the right inferior pubic ramus is not excluded. XR hip RT min 2V, XR hip LT min 2V Ordering provider: Fabio Escamilla MD History: . leg pain . Comparison: None. FINDINGS: BONES: Sclerotic changes with Highly suggestive fracture in the left pubic superior pubic ramus is noted. Fracture of the left inferior pubic ramus is not excluded. HIP JOINT SPACES: Severe narrowing suggestive of osteoarthritic changes. SACROILIAC JOINT SPACES/LUMBAR SPINE: The sacroiliac joint spaces are normal. Mild degenerative changes of the visualized lower lumbar spine. PUBIC SYMPHYSIS: Pubic symphysitis. SOFT TISSUES: Normal. IMPRESSION: Highly suggestive fracture of the left superior pubic ramus. Fracture of the left inferior pubic ramus cannot be excluded. CT of the pelvis is advised for better evaluation. Hip X-Ray 09/03/24 17:12 IMPRESSION: Fracture of the right superior pubic ramus. Possibility of fracture of the right inferior pubic ramus is not excluded. XR hip RT min 2V, XR hip LT min 2V Ordering provider: Fabio Escamilla MD History: . leg pain . Comparison: None. FINDINGS: BONES: Sclerotic changes with Highly suggestive fracture in the left pubic superior pubic ramus is noted. Fracture of the left inferior pubic ramus is not excluded. HIP JOINT SPACES: Severe narrowing suggestive of osteoarthritic changes. SACROILIAC JOINT SPACES/LUMBAR SPINE: The sacroiliac joint spaces are normal. Mild degenerative changes of the visualized lower lumbar spine. PUBIC SYMPHYSIS: Pubic symphysitis. SOFT TISSUES: Normal. IMPRESSION: Highly suggestive fracture of the left superior pubic ramus. Fracture of the left inferior pubic ramus cannot be excluded. CT of the pelvis is advised for better evaluation. Pelvis CT 09/04/24 15:33 IMPRESSION: Sclerotic changes in the left pubic bone and superior pubic ramus which may be due to old fracture. Osteomyelitis is less likely. Follow-up and clinical correlation advised. Lumbar Spine X-Ray 09/04/24 16:10 IMPRESSION: 1. Moderate thoracic spondylosis. 2. 15 degrees lumbar dextrocurvature with severe lower lumbar predominant spondylosis. Thoracic Spine X-Ray 09/04/24 16:10 IMPRESSION: 1. Moderate thoracic spondylosis. 2. 15 degrees lumbar dextrocurvature with severe lower lumbar predominant spondylosis. Labs Labs: Laboratory Results - last 24 hr 09/04/24 09/04/24 09/04/24 12:49 16:51 20:26 WBC RBC Hgb Hct MCV MCH MCHC RDW Plt Count MPV Immature Gran % (Auto) Neut % (Auto) Lymph % (Auto) [place] % (Auto) Eos % (Auto) Baso % (Auto) Lymph # (Auto) [place] # (Auto) Eos # (Auto) Baso # (Auto) Abs Immat Gran (auto) Absolute Neuts (auto) Absolute Nucleated RBC Nucleated RBC % Sodium Potassium Chloride Carbon Dioxide Anion Gap BUN Creatinine Estim Creat Clear Calc Estimated GFR Glucose POC Capillary Glucose 231 H 205 H 252 H Calcium Magnesium Total Bilirubin AST ALT Alkaline Phosphatase Total Protein Albumin 09/05/24 04:49 WBC 11.5 H RBC 3.25 L Hgb 9.4 L Hct 30.8 L MCV 94.8 MCH 28.9 MCHC 30.5 L RDW 14.7 H Plt Count 259 MPV 10.6 H Immature Gran % (Auto) 0.5 Neut % (Auto) 70.8 Lymph % (Auto) 13.4 L [place] % (Auto) 9.2 H Eos % (Auto) 5.6 H Baso % (Auto) 0.5 Lymph # (Auto) 1.54 [place] # (Auto) 1.1 H Eos # (Auto) 0.6 H Baso # (Auto) 0.1 Abs Immat Gran (auto) 0.06 H Absolute Neuts (auto) 8.2 H Absolute Nucleated RBC 0.000 Nucleated RBC % 0.0 Sodium 134 L Potassium 3.6 Chloride 98 Carbon Dioxide 27 Anion Gap 9 BUN 28 H D Creatinine 4.91 H Estim Creat Clear Calc 10 Estimated GFR 9 L Glucose 240 H POC Capillary Glucose Calcium 8.3 L Magnesium 1.9 Total Bilirubin 0.5 AST 17 ALT 12 Alkaline Phosphatase 104 Total Protein 7.0 Albumin 3.4 L
[2024-09-05] MEDS: EPOETIN ALFA-EPBX 10,000 UNITS/ML VIAL 10000 UNITS IV PUSH (11:55)
[2024-09-05] MEDS: ISOSORBIDE MONONITRATE 30 MG TAB.ER.24H PO (12:49)
[2024-09-05] MEDS: AMOXICILLIN/CLAVULANATE K 500-125 MG TAB 1 TABLET PO (12:49)
[2024-09-05] MEDS: METOPROLOL SUCCINATE EXT REL 50 MG TABCR PO (12:49)
[2024-09-05] MEDS: APIXABAN 2.5 MG TABLET PO (12:49)
[2024-09-05] MEDS: MONTELUKAST SODIUM 10 MG TABLET PO (12:49)
[2024-09-05] MEDS: hydrALAZINE HCL 25 MG TABLET PO (12:49)
[2024-09-05] MEDS: AMIODARONE HCL 200 MG TABLET PO (12:49)
[2024-09-05] MEDS: FLUTICASONE PROPIONATE 0.05% NA SPR 16 GM BTL (*BKC) 2 SPRAY NASAL (12:49)
[2024-09-05] MEDS: rOPINIRole HCL 0.5 MG TABLET PO (12:49)
[2024-09-05 12:59] LABS: Glucose Point of Care 143 mg/dl (65-105)
--- NOTE | 2024-09-05 14:38 | PM.DS ---
DS: Admitting Diagnosis Discharge Date 09/05/24 Admitting Diagnosis AMS DS: Discharge Diagnosis Discharge Diagnosis (1) UTI (urinary tract infection): Qualifiers: Hematuria presence: without hematuria Urinary tract infection type: acute cystitis Qualified Code(s): N30.00 - Acute cystitis without hematuria Code(s): N39.0 - Urinary tract infection, site not specified Status: Acute DS: Summary Hospital Course Hospital Course: 73-year-old female well known to the hospitalist service due to prior admissions with a complex past medical history including but not limited to end-stage renal disease on hemodialysis Sunday, insulin-dependent diabetes mellitus, obstructive sleep apnea, COPD, grade 2 diastolic dysfunction, COVID with acute respiratory failure requiring tracheostomy subsequent and removal who presented to the ER from home is when her called EMS because he felt she was not acting like herself. SHe was managed for UTI and urine culture grew Proteus mirabilis sensitive to Augmentin and patient was switched to Augmentin to complete therapy on 09/08/24. AMS resolved to baseline aphasia, family confirmed patient is back to her baseline. Qtc prolongation resolved Also complained of hhip pain, initially hip xray showed right superior pubic ramus fracture and CT Pelvis showed increased sclerosis at th left pubic body extrensing into the medial aspect of both the superior and inferior pubic rami with changes suggetive of Paget's disease. ortho was consulted, evaluated and recommended the above CT and spine Xray. No acute changes noted and no intervention needed Patient will follow up with PCP in 3-5 days, for onwards referral to bone medicine. Time Spent with Patient Time attestation: Total time spent providing and/or coordinating discharge services: DS: Data Data Completed and Pending Labs on day of discharge: Labs from last 24 hours 09/05/24 09/05/24 09/04/24 12:55 04:49 20:26 WBC 11.5 H RBC 3.25 L Hgb 9.4 L Hct 30.8 L MCV 94.8 MCH 28.9 MCHC 30.5 L RDW 14.7 H Plt Count 259 MPV 10.6 H Immature Gran % (Auto) 0.5 Neut % (Auto) 70.8 Lymph % (Auto) 13.4 L [place] % (Auto) 9.2 H Eos % (Auto) 5.6 H Baso % (Auto) 0.5 Lymph # (Auto) 1.54 [place] # (Auto) 1.1 H Eos # (Auto) 0.6 H Baso # (Auto) 0.1 Abs Immat Gran (auto) 0.06 H Absolute Neuts (auto) 8.2 H Absolute Nucleated RBC 0.000 Nucleated RBC % 0.0 Sodium 134 L Potassium 3.6 Chloride 98 Carbon Dioxide 27 Anion Gap 9 BUN 28 H D Creatinine 4.91 H Estim Creat Clear Calc 10 Estimated GFR 9 L Glucose 240 H POC Capillary Glucose 143 H 252 H Calcium 8.3 L Magnesium 1.9 Total Bilirubin 0.5 AST 17 ALT 12 Alkaline Phosphatase 104 Total Protein 7.0 Albumin 3.4 L 09/04/24 16:51 WBC RBC Hgb Hct MCV MCH MCHC RDW Plt Count MPV Immature Gran % (Auto) Neut % (Auto) Lymph % (Auto) [place] % (Auto) Eos % (Auto) Baso % (Auto) Lymph # (Auto) [place] # (Auto) Eos # (Auto) Baso # (Auto) Abs Immat Gran (auto) Absolute Neuts (auto) Absolute Nucleated RBC Nucleated RBC % Sodium Potassium Chloride Carbon Dioxide Anion Gap BUN Creatinine Estim Creat Clear Calc Estimated GFR Glucose POC Capillary Glucose 205 H Calcium Magnesium Total Bilirubin AST ALT Alkaline Phosphatase Total Protein Albumin Preliminary micro results at discharge 09/01/24 22:35 Blood Culture - Preliminary Blood 09/01/24 22:35 Blood Culture - Preliminary Blood Discharge Plan Discharge Attending physician on discharge: Fabio Escamilla Consulting providers: Dimas Rios; Bib Damian Discharging Clinician: Fabio Escamilla Anticipated Discharge Date/Time: 09/05/24 14:35 Patient Disposition: Home Activity: as tolerated Diet: as tolerated and diabetic Patient Instructions: Antibiotic Form, Apixaban (By mouth), Heart Failure (GEN) Patient Language: Other Stand Alone Forms: General Discharge Information Follow-up/Referrals: Rikki Amezquita MD [Primary Care Provider] - (F/u with PCP in 3-5 days ) Bib Damian MD [Physician] - (F/u with Ortho as instructed ) Discharge Medications: New amoxicillin-pot clavulanate [Augmentin] 500-125 mg Tablet 1 tablet PO Q12HR 3 Days Qty: 6 0RF isosorbide mononitrate 30 mg Tablet Extended Release 24 Hr 30 mg PO QAM 30 Days Qty: 30 1RF hydralazine 25 mg Tablet 25 mg PO TID 30 Days Qty: 90 1RF Continued insulin aspart U-100 [Novolog FlexPen U-100 Insulin] 100 unit/mL (3 mL) insulin pen See Rx Instructions .ROUTE .COMPLEX MDD 60 Rx Instructions: sliding scale albuterol sulfate [Ventolin HFA] 90 mcg/actuation HFA aerosol inhaler See Rx Instructions .ROUTE .COMPLEX Qty: 18 6RF Dose Instruction: INHALE 2 PUFFS BY MOUTH 4 TIMES DAILY NEEDED FOR SHORTNESS OF BREATH OR WHEEZING. Rx Instructions: INHALE 2 PUFFS BY MOUTH 4 TIMES DAILY NEEDED FOR SHORTNESS OF BREATH OR WHEEZING. metoprolol succinate 50 mg tablet extended release 24 hr 50 mg PO QAM Qty: 90 0RF atorvastatin [Lipitor] 20 mg tablet 20 mg PO HS Qty: 90 1RF lorazepam [Ativan] 0.5 mg tablet 0.5 mg PO DAILY PRN (Reason: anxiety) montelukast 10 mg tablet 10 mg PO DAILY Qty: 90 3RF amiodarone 200 mg tablet 200 mg PO QAM ropinirole 2 mg tablet 0.5 mg PO Q12H insulin glargine [Lantus Solostar U-100 Insulin] 100 unit/mL (3 mL) insulin pen 18 unit subcut QPM Rx Instructions: INJECT 18 UNITS UNDER THE SKIN AT BEDTIME fluticasone propionate 50 mcg/actuation spray,suspension 2 spray NASAL DAILY albuterol sulfate 2.5 mg /3 mL (0.083 %) solution for nebulization 2.5 mg inhalation Q4-6H PRN (Reason: shortness of breath or wheezing) Qty: 90 6RF levothyroxine 175 mcg tablet 175 mcg PO DAILY Qty: 90 1RF budesonide-formoterol 160-4.5 mcg/actuation HFA aerosol inhaler 2 puff inhalation Q12H Qty: 10.2 6RF trazodone 50 mg tablet 50 mg PO QHS Qty: 30 2RF Eliquis 2.5 mg tablet See Rx Instructions PO .COMPLEX Qty: 180 2RF Dose Instruction: TAKE 1 TABLET TWICE DAILY Rx Instructions: TAKE 1 TABLET TWICE DAILY orally ; Date of admission: 09/02/24 11:04 Primary Care Provider: Rikki Amezquita Admitting Provider: Gwen Jaimes Attending physician on admission: Fabio Escamilla Condition: Stable
--- NOTE | 2024-09-05 15:24 | PCOTNOTE ---
Per RN, Patient is planned to be discharged this afternoon.
[2024-09-05 17:07] LABS: Glucose Point of Care 194 mg/dl (65-105)
== END 2024-09-05 18:05 | disposition home health service (06) | DRG 689 ==
LOC: ANHED 21:38 → ANH2MED 21:59
PROVIDERS: Internal Medicine Nephrology; Admitting Provider Internal Medicine; Emergency Provider Physician Assistant; PCP Family Medicine; Visit Provider Internal Medicine
DX: N39.0 Urinary tract infection, site not specified (principal); N18.6 End stage renal disease; I13.2 Hypertensive heart and chronic kidney disease with heart failure and with stage 5 chronic kidney disease, or end stage renal disease; I50.32 Chronic diastolic (congestive) heart failure; I48.20 Chronic atrial fibrillation, unspecified; I69.351 Hemiplegia and hemiparesis following cerebral infarction affecting right dominant side; I25.10 Atherosclerotic heart disease of native coronary artery without angina pectoris; J44.9 Chronic obstructive pulmonary disease, unspecified; E11.22 Type 2 diabetes mellitus with diabetic chronic kidney disease; E11.42 Type 2 diabetes mellitus with diabetic polyneuropathy; E11.65 Type 2 diabetes mellitus with hyperglycemia; E03.9 Hypothyroidism, unspecified; K21.9 Gastro-esophageal reflux disease without esophagitis; B96.4 Proteus (mirabilis) (morganii) as the cause of diseases classified elsewhere; N25.0 Renal osteodystrophy; M17.0 Bilateral primary osteoarthritis of knee; M88.88 Osteitis deformans of other bones; M47.816 Spondylosis without myelopathy or radiculopathy, lumbar region; R94.31 Abnormal electrocardiogram [ECG] [EKG]; G47.33 Obstructive sleep apnea (adult) (pediatric); G25.81 Restless legs syndrome; F41.1 Generalized anxiety disorder; F32.A Depression, unspecified; I69.320 Aphasia following cerebral infarction; Z99.2 Dependence on renal dialysis; Z79.01 Long term (current) use of anticoagulants; Z79.4 Long term (current) use of insulin; Z87.891 Personal history of nicotine dependence
CPT/HCPCS: 36415; 70450; 71045; 72070; 72110; 72192; 73502; 80053; 81001; 82550; 82948; 83605; 83735; 84439; 84443; 84484; 85025; 85610; 85730; 86706; 87040; 87086; 87186; 87340; 87641; 93005; 94640; 96365; 97162; 97166; 97530; 99285; A9270; G0257; G0378; J0696; J1815; J7030; Q5105

== ENCOUNTER 2024-09-17 18:09 | Inpatient (IN) | payer MEDICARE, SELFPAY ==
--- NOTE | ~2024-09-17 | XR_ITS ---
XR chest 1V portable Ordering provider: Tina Echols PA-C History: 73 years Female with . ams . Comparison: September 01, 2024 FINDINGS: MEDIASTINUM: The cardiac silhouette is moderately enlarged. Congestive marlyn with prominent right hilum. LUNGS: No effusions or pneumothorax. Prominent markings in the lower lobes with possible early pneumo patrice. Underlying interstitial thickening is noted. OTHER: No free air under the diaphragm. IMPRESSION: Prominent markings in the lower lobes with possible early pneumonia. Underlying pulmonary edema is no t excluded. Clinical correlation and follow-up advised. Reviewed, dictated and finalized at location A. IMPRESSION: Prominent markings in the lower lobes with possible early pneumonia. Underlying pulmonary edema is not excluded. Clinical correlation and follow-up advised.
--- NOTE | ~2024-09-17 | MR_ITS ---
MRI of the brain Clinical History: CVA Technique: Axial and sagittal T1-weighted images were acquired. These were followed by axial T2-weigh mckenzie, diffusion weighted, gradient, and FLAIR images. COMPARISON: 12/26/2023 Findings: No acute infarct, acute intracranial hemorrhage or mass lesion seen. There is extensive chr onic infarct in the left MCA distribution, new from prior exam. There is background probable moderate chronic microvascular ischemic change in the periventricular white matter bilaterally. Ventricles and subarachnoid spaces are mildly dilated. Orbits are unremarkable. There is mild thecal thickening of the maxillary and ethmoid sinuses bilaterally. There is right mastoid effusion. Major i ntracranial flow voids appear intact. Sagittal midline structures are intact. IMPRESSION: No acute abnormality. Extensive chronic left MCA distribution infarct, new from prior exam. Mild sinus disease, as above. Reviewed, dictated and finalized at [facility].
--- NOTE | ~2024-09-17 | CT_ITS ---
CT brain wo con Ordering provider: Tina Echols PA-C History: 73 years Female with . ams . Comparison: None. Technique: CT of the head without contrast. Radiation reduction technique utilized.The dose-length pr oduct was 681 mGy-cm. FINDINGS: BRAIN PARENCHYMA AND CSF SPACES: Mild leukoaraiosis and diffuse cortical atrophy. Mild atheromatous d isease. Old infarct with encephalomalacia is seen in the left frontoparietal temporal area. Old lacun ar infarct in the vermis of the cerebellum is also noted. No midline shift, mass effect or hemorrhage . The brain parenchyma and CSF spaces are otherwise normal. VISUALIZED PARANASAL SINUSES: Bilateral ethmoid sinus disease. Right maxillary sinus disease. Well ae rated. MASTOIDS: Right mastoid air cells effusion. Soft tissue density seen in the middle ear with soft tiss ue in the Prussak's space which may indicate cholesteatoma. Follow-up and further evaluation advised. BONES: The bones appear intact. SOFT TISSUES: Visualized nasopharynx is normal. Superficial soft tissues are normal. IMPRESSION: No acute intracranial findings. Reviewed, dictated and finalized at location A.
[2024-09-17 18:07] VITALS: BP 131/41; PULSE 67; RESP 15; TEMP 37.9; O2SAT 96
--- NOTE | 2024-09-17 18:14 | ED.AMS ---
HPI - Altered Mental Status General Chief Complaint: Altered Mental Status Stated Complaint: Altered mental status Source: family, EMS and old records reviewed Mode of arrival: EMS Limitations: altered mental status and clinical condition History of Present Illness HPI narrative: Patient is a 73 y/o female who presents to the ED via EMS from home with report of AMS. Patient has history of COPD, DM, HTN, ESRD on dialysis MWF, CAD, CHF, AFib on eliquis/amiodarone, hypothyroidism, frequent UTIs, previous CVA w/ residual R sided weakness and expressive aphasia. Per family/EMS, patient is alert oriented x1 at baseline. She is unable to provide any information due to aphasia. at bedside reports he called for EMS today d/t patient being weak and unable/unwilling to move after coming home from dialysis today. reports that patient was standing up and leaning against a counter for approximately 2 hours and he could not get her to move or respond to him. Per EMS, patient was noted to be hypoxic down to 88% on room air upon arrival. She does have home oxygen that she can use as needed. She was placed on 2 L nasal cannula with stabilization of oxygen saturations. Related Data Home Medications ?Medication ?Instructions ?Recorded ?Confirmed ?Last Taken ?Type fluticasone propionate 50 2 spray intranasal DAILY 03/19/19 09/01/24 06/25/23 History mcg/actuation nasal spray,suspension insulin aspart U-100 100 unit/mL See Rx Instructions .Route .COMPLEX 05/20/24 09/02/24 Unknown History (3 mL) subcutaneous pen (Novolog FlexPen U-100 Insulin aspart) lorazepam 0.5 mg tablet (Ativan) 0.5 mg PO DAILY PRN anxiety 07/04/24 09/02/24 Unknown History amiodarone 200 mg tablet 200 mg PO QAM 09/02/24 09/01/24 Unknown History insulin glargine 100 unit/mL (3 18 unit subcut QPM 09/02/24 09/01/24 Unknown History mL) subcutaneous pen (Lantus Solostar U-100 Insulin) ropinirole 2 mg tablet 0.5 mg PO Q12H 09/02/24 09/01/24 Unknown History Allergies Allergy/AdvReac Type Severity Reaction Status Date / Time nickel Allergy Intermediate hives and Verified 09/17/24 19:25 itchy rash Sulfa (Sulfonamide Allergy Intermediate Urticaria Verified 09/17/24 19:25 Antibiotics) and hives Calcium Channel Blocking AdvReac Intermediate STATES Verified 09/17/24 19:25 Agents-Dih CANNOT TAKE SINCE SHE HAS ASTHMA diphenhydramine AdvReac Intermediate restless Verified 09/17/24 19:25 legs nifedipine AdvReac Intermediate palpitation Verified 09/17/24 19:25 s Ndkrmtm-KPC-EpG Reductase AdvReac Intermediate muscle Verified 09/17/24 19:25 Inhibitor (Zkajyvt-Txz-Xtd cramps Reductase Inhibitor) Review of Systems Review of Systems: All systems reviewed & are unremarkable except as noted in HPI. 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 Paroxysmal atrial fibrillation Bilateral primary osteoarthritis of knee Renal osteodystrophy DVT of lower extremity (deep venous thrombosis) Asthma-COPD overlap syndrome Left-sided cerebrovascular accident (CVA) (01/04/24) With residual left-sided visual neglect, profound expressive aphasia and right-sided hemiplegia ESRD on hemodialysis (02/17/22) Chronic anticoagulation Obstructive sleep apnea Hypothyroidism Insulin dependent type 2 diabetes mellitus Generalized anxiety disorder Chronic obstructive pulmonary disease Chronic diastolic (congestive) heart failure Coronary artery disease involving [place] heart without angina pectoris Depression GERD without esophagitis Peripheral polyneuropathy Surgical History Surgical History History of tracheostomy (04/24/22) With subsequent removal History of cataract extraction History of tonsillectomy History of cholecystectomy History of gastrostomy tube placement and removal Family History Family History Father Hypertension Family history of coronary artery disease Sibling Hypertension Family history of coronary artery disease Mother Cerebrovascular accident Other Asthma Depression Family history of Alzheimer's disease Family history of arthritis Family history of cardiovascular disease Family history of lymphoma Family history of obesity Family history of seizure disorder Social History Social History Social History: Surrogate medical decision maker: Anjum (spouse) or Gwen (daughter) Kyra. Code status: Full code. Smoking packs per day: 2 Smoking cigarettes per day: 40.0 Years smoked: 30 Smoking pack-years: 60.00 Smoking status: Former smoker Tobacco type: cigarettes Second hand tobacco smoke exposure: No Smoking end date: 05/07/89 Alcohol intake: never Alcohol use details: special occasions Substance use: never Substance use type: marijuana Last use: 01/05/23 Do You Feel Safe in your Home?: Yes Lack of Transportation: No Lack of Food: Never True Current Housing: I Have Housing Concerned About Future Housing: No Difficulty Paying Gas/Electric Bills: No Difficulty Paying for Meds: No Currently Unemployed: No Education: High School Diploma/GED Difficulty w/ Childcare or Family Care: No Living arrangements: with family Occupation/Education: retired Spiritual care concerns: No Exam Narrative: GENERAL: Elderly, chronically ill appearing, obese with BMI of 34.0, non-toxic, in no acute distress. HEAD: Normocephalic, atraumatic. RESPIRATORY: Airway patent, respirations nonlabored. No increased work of breathing. CARDIOVASCULAR: Regular rate and rhythm without murmurs, rubs, or gallops. ABDOMINAL: Soft, no appreciable tenderness, nondistended. Normoactive BS. Erythema and alexy changes to lower abdominal folds. MUSCULOSKELETAL: Moves all extremities. No gross deformities. Dialysis fistula LUE with palpable thrill SKIN: Warm, dry, normal color. NEURO: Alert, aphasic, able to answer some yes or no questions. Follows some commands. No ataxic movements. Able to move all extremities. PSYCHIATRIC: Appropriate mood and affect. Normal interaction. Course Vital Signs Vital signs: Vital Signs Temperature 100.2 F H 09/17/24 18:07 Pulse Rate 67 09/17/24 18:07 Respiratory Rate 15 09/17/24 18:07 Blood Pressure 131/41 L 09/17/24 18:07 Pulse Oximetry 96 09/17/24 18:07 Oxygen Delivery Nasal Cannula 09/17/24 18:07 Oxygen Flow Rate 2 09/17/24 18:07 Temperature 100.2 F H 09/17/24 18:07 Pulse Rate 67 09/17/24 18:07 Respiratory Rate 15 09/17/24 18:07 Blood Pressure 131/41 L 09/17/24 18:07 Pulse Oximetry 96 09/17/24 18:07 Oxygen Delivery Nasal Cannula 09/17/24 18:07 Oxygen Flow Rate 2 09/17/24 18:07 MDM - Altered Mental Status MDM Narrative Medical decision making narrative: Patient presented to ED from local [facility] facility with report of possible altered mental status. Patient with complex past medical history, history of CVA with expressive aphasia. Unable to provide any information. She was noted to be borderline febrile upon arrival. Given Tylenol. O2 stable around 96% on 2L. She was noted to be hypoxic upon EMS arrival. She does have home oxygen for p.r.n. use. Altered mental status workup was initiated. CT brain was obtained and without acute findings. Patient appears grossly neurologically intact. She is able to move all extremities, follows some commands. Laboratory studies fairly reassuring. Appear consistent with previous records. Chronic anemia. ESRD. BG mildly elevated in mid 200s. Lactic acid WNL. TSH WNL. UA appears infectious. 3+ leuks, >100 WBC. Blood in urine cultures obtained. Previous urine cultures have resulted sensitive to cephalosporins. Rocephin started in the ED. Patient's COVID testing resulted positive. Chest x-ray with possible early pneumonia versus pulmonary edema. Patient does not appear fluid overloaded at this time. Had normal dialysis treatment today. EKG w/o ischemic changes. Patient will be admitted for further evaluation of altered mental status, UTI, COVID-19. Discussed case with Dr. Reyes, hospitalist, accepted patient for admission. Will start dexamethasone/remdesivir for COVID/hypoxia. Discussed with pharmacy, no renal adjustment necessary with remdesivir. Family in agreement with plan and need for admission. Medical Records Attestation: I reviewed the patient's medical records. Lab Data Attestation: I reviewed the patient's lab results. 09/17/24 19:54 09/17/24 19:54 Labs: Lab Results 09/17/24 09/17/24 09/17/24 Range/Units 18:21 18:58 19:54 WBC 8.2 (4.5-10.0) K/mm3 RBC 3.14 L (4.2-5.4) M/mm3 Hgb 9.0 L (12.0-15.0) g/dL Hct 30.1 L (37.0-47.0) % MCV 95.9 (80-100) fl MCH 28.7 (26-34) pg MCHC 29.9 L (32-36) g/dl RDW 16.0 H (11.5-14.5) % Plt Count 197 (150-375) k/mm3 MPV 10.8 H (7.4-10.4) fl Immature Gran % (Auto) 0.5 (0-0.5) % Neut % (Auto) 75.8 H (45.5-73.1) % Lymph % (Auto) 10.3 L (18.3-44.2) % [place] % (Auto) 10.5 H (2.6-8.5) % Eos % (Auto) 2.3 (0-4.4) % Baso % (Auto) 0.6 (0.2-1.2) % Lymph # (Auto) 0.84 L (0.9-3.2) K/mm3 [place] # (Auto) 0.9 H (0.1-0.6) K/mm3 Eos # (Auto) 0.2 (0-0.3) K/mm3 Baso # (Auto) 0.1 (0.0-0.1) K/mm3 Abs Immat Gran (auto) 0.04 H (0.00-0.031) K/mm3 Absolute Neuts (auto) 6.2 (1.3-6.7) K/mm3 Absolute Nucleated RBC 0.000 (0.0-0.012) K/mm3 Band Neutrophils % 0 (0-6) % Nucleated RBC % 0.0 (0.0-0.2) % Platelet Estimate Adequate (Adequate) Hypochromasia 1+ Anisocytosis 2+ Schistocytes None seen PT 15.0 H (11.1-14.7) Seconds INR 1.1 APTT 31.8 (22.3-36.8) Seconds Sodium 135 L (137-145) mmol/L Potassium 3.8 (3.4-5.0) mmol/L Chloride 93 L (98-107) mmol/L Carbon Dioxide 37 H (22-30) mmol/L Anion Gap 5 (4-12) mmol/L BUN 17 D (7-17) mg/dL Creatinine 2.60 H (0.7-1.0) mg/dL Estim Creat Clear Calc 17 ml/min Estimated GFR 18 L (59 - ) Glucose 231 H (65-110) mg/dL POC Capillary Glucose 244 H (65-105) mg/dl Lactic Acid 1.6 (0.7-2.0) mmol/L Calcium 8.0 L (8.4-10.2) mg/dL Total Bilirubin 0.7 (0.2-1.3) mg/dL AST 26 (14-36) U/L ALT 15 (6-35) U/L Alkaline Phosphatase 100 (38-126) U/L Total Protein 7.0 (6.3-8.2) g/dL Albumin 3.4 L (3.5-5.1) g/dL Vitamin B12 Pending Folate Pending TSH 2.820 (0.465-4.680) uIU/mL TSH (Reflex) Pending Urine Color Yellow (Yellow) Urine Appearance Turbid H (Clear) Urine pH 8.5 (5.0-9.0) Ur Specific [place] 1.013 (1.001-1.035) Urine Protein 3+ H (Negative) mg/dL Urine Glucose (UA) 1+ H (Negative) mg/dL Urine Ketones Negative (Negative) mg/dL Ur Blood (Man) Negative (Negative) Urine Nitrate Negative (Negative) Urine Bilirubin Negative (Negative) Urine Urobilinogen 1.0 (<2.0) mg/dL Leukocyte Esterase Rfl 3+ H (Negative) ERICK/UL Urine RBC 6-10 H (0-2) /hpf Urine WBC >100 H (0-3) /hpf Ur Squamous Epith Cells Occasional (Few) /hpf Urine Bacteria None seen /hpf Urine Casts 11-20 Hyaline Casts Present (None) /lpf Influenza A (RT-PCR) Negative (Negative) Influenza B (RT-PCR) Negative (Negative) RSV (RT-PCR) Negative (Negative) SARS-CoV-2 RNA (RT-PCR) Positive A (Negative) Imaging Data Attestation: I personally reviewed and interpreted this imaging study as follows: Radiologist's impression: ITS Impressions Head CT 09/17/24 18:54 IMPRESSION: No acute intracranial findings. Chest X-Ray 09/17/24 19:46 IMPRESSION: Prominent markings in the lower lobes with possible early pneumonia. Underlying pulmonary edema is not excluded. Clinical correlation and follow-up advised. ECG Data EKG #1: Attestation: I personally reviewed and interpreted this ECG as follows: ECG completion date: 09/17/24 ECG completion time: 18:11 EKG Interpretation: normal rate (69), sinus rhythm and non-specific ST changes Discharge Plan Discharge Clinical Impression: COVID-19, ESRD on hemodialysis AMS (altered mental status) Qualifiers: Altered mental status type: unspecified Qualified Code(s): R41.82 - Altered mental status, unspecified UTI (urinary tract infection) Qualifiers: Urinary tract infection type: acute cystitis Hematuria presence: with hematuria Qualified Code(s): N30.01 - Acute cystitis with hematuria Patient Disposition: Still a Patient Condition: Stable
--- NOTE | 2024-09-17 18:18 | ECG_ITS ---
Test Date: 2024-09-17 18:11:04 Measurements Intervals [place] Rate: 69 P: 14 [place]: 170 QRS: -3 QRSD: 114 T: 52 QT: 434 QTc: 467 Interpretive Statements SINUS RHYTHM MODERATE INTRAVENTRICULAR CONDUCTION DELAY [110+ ms QRS DURATION] NONSPECIFIC ST & T-WAVE ABNORMALITY Compared to ECG 09/01/2024 19:18:34 T-wave abnormality now present Prolonged QT interval no longer present Electronically Signed On 09-18-2024 15:55:37 CDT by Bartolo Colmenares M.D.
[2024-09-17 18:23] LABS: Glucose Point of Care 244 mg/dl (65-105)
--- OUTSIDE RECORDS SUMMARY | 2024-09-17 18:40 | XMS_ITS | Patient Health Record ---
Author Organization [facility] Address [address] [place] [address] [place] [address] [id number] Care Team Providers Care Senior Accounting Analyst Name Role Phone Brayan Amezquita Primary Care Provider Unavail able Sammy Shepard Unavailable [phone] Allergies No Known Allergies Reason For Referral [...] Notes Problem Chronic kidney disease stage 2 ([id number]) Chronic kidney disease (CKD), stage II (mild) (N18.2) Active confirmed Problem Essential hypertension (63960252) Benign essential HTN (I10) Active confirmed Problem 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 (110831505726506) 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) Active confirmed Problem [id number] Essential (primary) hypertension (I10) Active confirmed Problem [id number] Chronic kidney disease, stage 3a (N18.31) Active [...] Coverage End Date Medicare [place] [address] [address] [place] [address] [phone] [id number] Gregoria Rae Self - patient is the insured [facility] [address] [place] [address] [id number] Gregoria Rae Self - patient is the insured Medical (General) History Medical History History ICD Code restless leg syndrome DM HTN CKD Surgical History Surgery Date(Month/Year) thryoidectomy cholecystectomy
--- OUTSIDE RECORDS SUMMARY | 2024-09-17 18:40 | XMS_ITS | Continuity of Care Document ---
Author Organization [employer] [facility] [employer] [facility] [place] [address] [place] [phone] Phone Care Team Providers Care Household Manager Name Role Phone Mohsen Peña Unavailable Unavailable [...] Diagnoses Date Provider Providers Copied on Encounter [facility], [id number] [place] [address] [address], [place], [place], [id number], [place] tel:[phone] [facility] No Information 1-201 0 Casey Connolly. [address] [place], [address], [place]. tel:[phone] Referring Provider: Mohsen Merlos, [address] [place], [address]. tel:[phone] [facility], [address], [place], [place], [id number], [place] tel:[phone] [facility] No Information 8-201 0 Casey Connolly. [address] [place], [address], [place]. tel:[phone] Referring Provider: Mohsen Merlos, [address] [place], [address]. tel:[phone] [facility], [address] [place] [address] [address], [place], [place], [id number], [place] tel:[phone] [facility] No Information 4-201 0 Casey Connolly. [address] [place], [address], [place]. tel:[phone] Referring Provider: Mohsen Merlos, [address] [place], [address]. tel:[phone] [facility], [address], [place], [place], [id number], [place] tel:[phone] [facility] No Information September-0 3-201 0 Casey Connolly. [address] [place], [address], [place]. tel:[phone] Referring Provider: Mohsen Merlos, [address] [place], [address]. tel:[phone] [facility], [address] [place] [address] [address], [place], [place], [id number], [place] tel:[phone] [facility] No Information Jul-0 1-201 0 Casey Connolly. [address] [place], [address], [place]. tel:[phone] Referring Provider: Mohsen Merlos, [address] [place], [address]. tel:[phone] [facility], [address], [place], [place], [address], [place] tel:[phone] [facility] No Information 5-201 0 Casey Connolly. [address] [place], [address], [place]. tel:[phone] Referring Provider: Mohsen Merlos, [address] [place], [place], [facility]. tel:[phone] [facility], [address] [place] [address] [address], [place], [place], [address], [place] tel:[phone] [facility] No Information Sep-1 4-200 9 Casey Connolly. [address] [place], [address], [place]. tel:[phone] Referring Provider: Mohsen Merlos, [address] [place], [address]. tel:[phone] [facility], [address], [place], [place], [address], [place] tel:[phone] [facility] No Information Aug-3 1-200 9 Casey Connolly. [address] [place], [address], [place]. tel:[phone] [facility], [address], [place], [place], [address], [place] tel:[phone] [facility] No Information Aug-2 7-200 9 Csaey Connolly. [address] [place], [address], [place]. tel:[phone] [facility], [address], [place], [place], [address], [place] tel:[phone] [facility] No Information 9 Casey Connolly. [address] [place], [address], [place]. tel:[phone] Referring Provider: Mohsen Merlos, [address] [place], [address]. tel:[phone] [facility], [address], [place], [place], [address], [place] tel:[phone] [facility] No Information 9 Casey Connolly. [address] [place], [address], [place]. tel:[phone] Referring Provider: Nataly Summers, [address], [place], [address]. tel:[phone] [facility], [address], [place], [place], [address], [place] tel:[phone] [facility] No Information 0 200 9 Sheri Ingram. [address] , [address], [place], [address], [place]. tel:[phone] [facility], [address], [place], [place], [address], [place] tel:[phone] [facility] No Information 8 Sheri Rojas [address] , [address], [place], [address], [place]. tel:[phone] [facility], [address], [place], [place], [address], [place] tel:[phone] [facility] [place] [facility] No Information Nov-0 8-[address], [place], [address], [place]. tel:[phone] [facility], [address], [place], [place], [address], [place] tel:[phone] [facility] No Information Oct-2 5-200 7 Casey Connolly. [address] [place], [address], [place]. tel:[phone] Referring Provider: Mohsen Merlos, [address] [place], [address]. tel:[phone] [facility], [address], [place], [place], [address], [place] tel:[phone] [facility] No Information Sep-2 7-200 7 Casey Connolly. [address] [place], [address], [place]. tel:[phone] [facility], [address], [place], [place], [address], [place] tel:[phone] [facility] No Information Sep-2 4-200 7 Casey Connolly. [address] [place], [address], [place]. tel:[phone] [facility], [address], [place], [place], [address], [place] tel:[phone] [facility] No Information Sep-1 7-200 7 Casey Connolly. [address] [place], [address], [place]. tel:[phone] [facility], [address], [place], [place], [address], [place] tel:[phone] [facility] No Information Sep-1 3-200 7 Casey Connolly. [address] [place], [address], [place]. tel:[phone] Referring Provider: Nataly Summers, [address], [place], [facility]. tel:[phone] [facility], [address], [place], [place], [address], [place] tel:[phone] [facility] No Information Dec- 0-200 7 Sheri Rojas [address], [place], [facility], [place]. tel:[phone] [facility], [address], [place], [place], [address], [place] tel:[phone] [facility] No Information Nov-3 0-200 7 Casey Connolly. [address] [place], [place], [facility], [place]. tel:[phone] [facility], [address], [place], [place], [address], [place] tel:[phone] [facility] No Information Nov-2 0-200 7 Sheri Rojas [address], [place], [facility], [place]. tel:[phone] [facility], [address], [place], [place], [address], [place] tel:[phone] [facility] No Information 2-200 7 Sheri Rojas [address], [place], [facility], [place]. tel:[phone] [facility], [address], [place], [place], [address], [place] tel:[phone] [facility] No Information Nov-1 1-200 7 Sheri Rojas [address], [place], [facility], [place]. tel:[phone] [facility], [address], [place], [place], [address], [place] tel:[phone] [facility] No Information Sam-2 2-200 7 Sheri Ingram. [address] , [address], [place], [facility], [place]. tel:[phone] Referring Provider: Nataly Summers, [address], [place], [facility]. tel:[phone] [facility], [address], [place], [place], [address], [place] tel:[phone] [facility] No Information Oct-1 4-200 7 Sheri Ingram. [address], [place], [facility], [place]. tel:[phone] [facility], [address], [place], [place], [address], [place] tel:[phone] [facility] No Information Oct-1 3-200 7 Sheri Ingram. [address], [place], [facility], [place]. tel:[phone] [facility], [address], [place], [place], [address], [place] tel:[phone] [facility] No Information September-2 5-200 7 Sheri Ingram. [address], [place], [address], [place]. tel:[phone] Referring Provider: Nataly Summers, [address], [place], [facility]. tel:[phone] Office Consultation [facility], [address], [place], [place], [address], [place] tel:[phone] [facility] No Information Jul-2 6-200 7 Casey Connolly. [address] [place], [address], [place]. tel:[phone] Referring Provider: Nataly Summers, [address], [place], [facility]. tel:[phone] [facility], [address] [facility] [address], [place], [place], [address], [place] tel:[phone] [facility] No Information [address], [place], [address], [place]. tel:[phone] Referring Provider: John No[facility] [address] [facility], [place], [address]. tel:[phone] Family History Family Member Type Diagnosis Age At Onset No Information Payers Payer name Insurance type Covered green party ID Authoriza brianna(s) Juan [facility] [id number] Social History Type Description Quantity Date Captured [...]
--- OUTSIDE RECORDS SUMMARY | 2024-09-17 18:40 | XMS_ITS | CONTINUITY OF CARE DOCUMENT ---
Author Name dede aguayo Address Unknown Organization [facility] Address [address] [address] [place] [address] Phone [phone] Care Team Providers Care Hall Supervisor Name Role Phone Stalin Donoavn MD Unavailable Stalin Donovan MD Unavailable INSURANCE PROVIDERS Payer name Policy type / Coverage type [place] [employer] party ID [facility] [id number] [place] [employer] Medicare [id number]
--- OUTSIDE RECORDS SUMMARY | 2024-09-17 18:40 | XMS_ITS | Clinical Summary ---
Author Organization [facility] Address [address] [place] [address] Care Team Providers Care Drilling Machine Operator Name Role Phone Family [facility]ostov[facility] [...] Comments Blood Pressure 129/59 05/28/2022 8:00 AM CHRONIC DISEASE MANAGER Pulse 76 05/28/2022 8:00 AM CHRONIC DISEASE MANAGER Temperature 36.7 C (98 F) 05/28/2022 8:00 AM CHRONIC DISEASE MANAGER Respiratory Rate 20 05/28/2022 8:00 AM CHRONIC DISEASE MANAGER Oxygen Saturation 96% 05/28/2022 8:00 AM CHRONIC DISEASE MANAGER Inhaled Oxygen Concentration - - Weight 111.6 kg (246 lb) 05/28/2022 6:37 AM CHRONIC DISEASE MANAGER Height 162.6 cm (5' 4) 05/13/2022 5:19 PM CHRONIC DISEASE MANAGER Body Mass Index 42.23 05/13/2022 5:19 PM CHRONIC DISEASE MANAGER Plan of Treatment Health Maintenance Due Date Last Done Comments CT Colonography 1948 Colonoscopy 1948 Colorectal Cancer Screening 1948 FIT-DNA (Cologuard) 1948 FIT 1948 FOBT 1948 Sigmoidoscopy 1950 Annual Visit Topic 1951 Hepatitis C Screening 1966 DTaP/Tdap/Td Vaccines (1 - Tdap) 12/27/1967 Pneumococcal Vaccine: 65+ Ye ars (1 of [...] 6:45 PM 05/13/2022 6:03 PM Care Teams Drilling Machine Operator Relationship Specialty Start Date End Date Amezquita [facility] [address] [place] [address] PCP - General 05/14/22
--- OUTSIDE RECORDS SUMMARY | 2024-09-17 18:40 | XMS_ITS | Referral Summary ---
Author Organization [facility] Address [address] [place] [address] Care Team Providers Care Cardiopulmonary Technologist Name Role Phone Mona Currie MD PhD Unavailable [phone] Sammy Shepard MD Unavailable [phone] Rikki Amezquita MD Primary Care Provider Encounters Date Type Department Care Team Description 07/01/2024 9:30 AM PERENNIAL HOUSE MANAGER Office Visit [facility] Medical Group Cardiology [address] [facility] [address] [place] [address] Uriel Gillette MD Paroxysmal atrial fibrillation (HCC) (Primary Dx); Need for lipid screening from Last 3 Months Allergies Active Allergy Reactions Criticality Noted Date Comments Diphenhydramine Other (See comments) Low Restless leg Nickel Rash Medium Nifedipine Chest tightness Medium Pokqvja-Yqo-Sds Reductase Inhibitors Muscle pain Medium Sulfa Hives [...] tablet (20 mg total) nightly Active banana jgdrwn-YYN-xfd er 5 gram-45 kcal/60 mL liquid in [...] 3 (three) times a day 180 mL 4 Active Additional Information Patient not taking.Reported on 07/01/2024 insulin glargine 100 unit/mL vial for injection Inject 18 Units under the skin nightly 10 mL 1 4 Active rOPINIRole (REQUIP) 0.5 mg tablet Administer per tube 1 tablet (0.5 mg total) 2 (two) times a day 60 tablet 11 4 Active epoetin brcye-epbx (RETACRIT) (3,000 unit/mL) solutionIndica tions:ESRD on Dialysis [...] per tube 1 tablet (200 mcg total) adviser sales before breakfast 4 Active Additional Information Patient [...] 04/13/2024 Assessment & Plan (04/28/2024 2:26 PM PERENNIAL HOUSE MANAGER): Stable on room air, continue trelegy, spiriva, prn duonebs Assessment & Plan (04/13/2024 12:50 PM PERENNIAL HOUSE MANAGER): Stable on room air, continue trelegy, spiriva, [...] 02/26/2024 Assessment & Plan (04/28/2024 2:29 PM PERENNIAL HOUSE MANAGER): Hb 9-10 at baseline, stable, continue epogen [...] 01/25/2024 Assessment & Plan (04/28/2024 2:25 PM PERENNIAL HOUSE MANAGER): Tube removed, keep healing stoma clean, dry, covered. F/u with PCP Assessment & Plan (04/13/2024 12:46 PM PERENNIAL HOUSE MANAGER): Recently pulled out by patient, surgical site is healing, continue to clean daily and cover with dry gauze Assessment & Plan (04/09/2024 1:53 PM PERENNIAL HOUSE MANAGER): Ok to keep tube out, cover area daily with dry gauze until healed, notify provider for change in condition or sx of dysphagia Assessment & Plan (04/06/2024 8:05 PM PERENNIAL HOUSE MANAGER): Now tolerating PO, likely could permanently DC soon, continue with h2o flushes for now Assessment & Plan (03/15/2024 10:55 AM PERENNIAL HOUSE MANAGER): Continue to flush q.i.d., able to tolerate food by mouth, TECHNOLOGY TRAINER following Assessment & Plan (03/06/2024 9:49 PM [...] on imaging, continue nepro at 40ml/hr with TECHNOLOGY TRAINER following for repeat swallow studies Hyperkalemia 01/18/2024 Assessment & Plan (01/18/2024 7:41 AM CDT): Improved after treatment at the hospital. Continue to monitor with dialysis. 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 01/18/2024 Assessment & Plan (04/28/2024 2:31 PM PERENNIAL HOUSE MANAGER): Has some improvement with therapy but remains weak with hemiparesis and aphasia, requires full care for all ADLs, unable to reposition self and will require electric hospital bed at home, ongoing PT/OT Contonie asa, statin, eliquis Heart healthy diet with exercise as tolerated Maintain BP and glycemic control F/u PCP Assessment & Plan (04/13/2024 12:49 PM PERENNIAL HOUSE MANAGER): Deficits improving have seem to stabilize now ambulatory with walker and gait belt, tolerating PO, speech garbled, continue statin, eliquis, heart healthy diet with exercise as tolerated; may need to transfer to LTC vs home with home health and family to care Assessment & Plan (04/09/2024 1:53 PM PERENNIAL HOUSE MANAGER): Deficits improving, now ambulatory with walker and gait belt, tolerating PO, speech remains garbled, continue statin, eliquis, heart healthy diet with exercise as tolerated Assessment & Plan (04/06/2024 8:08 PM PERENNIAL HOUSE MANAGER): Improving with therapies, now ambulatory and tolerating PO, speech remains garbled, continue statin, eliquis, heart healthy diet with exercise as tolerated Assessment & Plan (03/31/2024 2:26 PM PERENNIAL HOUSE MANAGER): Speech and mobility improving, now ambulatory with walker and gait belt. Continue PT/OT/TECHNOLOGY TRAINER, continue statin and Eliquis, maintain BP and glycemic control Assessment & Plan (03/20/2024 8:07 PM PERENNIAL HOUSE MANAGER): Improving with therapy, continue statin and Eliquis, maintain BP and glycemic control. Continue PT OT, TECHNOLOGY TRAINER, remains a fall risk F/u with neurology as scheduled, plans to DC home with Assessment & Plan (03/15/2024 10:51 AM PERENNIAL HOUSE MANAGER): Improving with therapy, continue statin and Eliquis, maintain BP and glycemic control. Continue PT OT, TECHNOLOGY TRAINER, remains a fall risk Assessment & Plan (03/06/2024 9:49 PM CDT): Stable, improving with therapies, continue statin, eliquis, PT/OT/TECHNOLOGY TRAINER, supportive care, continue to advance diet as tolerated Assessment & Plan (02/27/2024 3:02 PM CDT): Stable, improving with therapies, continue statin, eliquis, PT/OT/TECHNOLOGY TRAINER, supportive care with plans to DC home following rehab stay Assessment & Plan (02/20/2024 1:56 PM CDT): Deficits improving with therapy, continue statin and eliquis, PT/OT/TECHNOLOGY TRAINER with video swallow scheduled Continue bID zyprexa 2.5mg for now, may tolerate GDR at subsequent visit Assessment & Plan (02/19/2024 10:51 AM CDT): Improving with therapy, no recurrent episodes of agitation since starting BID zyprexa, continue statin and eliquis, PT/OT/TECHNOLOGY TRAINER with video swallow scheduled Assessment & Plan (02/11/2024 1:32 PM CDT): Improving, continue statin and eliquis, PT/OT. TECHNOLOGY TRAINER following for advancement of diet, will schedule Zyprexa 2.5mg HS rather than In am, conitnue supportive care, fall precautions Assessment & Plan (02/08/2024 3:56 PM CDT): Mobility and speech improving with intermittent agitation, fall risk, zyprexa increased to 2.5mg daily as unable to be redirected at times. Continue statin, eliquis, PT/TO/TECHNOLOGY TRAINER, TF nepro per RD recs Assessment & Plan (02/03/2024 8:55 AM CDT): Mobility is improving, remains aphasic, able to follow simple commands and has spontaneous movements of all extremities; continue statin, eliquis, glycemic control, BP management, PT/OT/TECHNOLOGY TRAINER Assessment & Plan (02/01/2024 9:33 AM CDT): Mobility is improving, intermittent anxiety, will need to monitor and provide supportive care, attempt to avoid benzos or antipsychotics although may need prn low dose meds due to fall risk and inability to be redirected; continue statin, eliquis, glycemic control, BP management, PT/OT/TECHNOLOGY TRAINER Assessment & Plan (01/28/2024 2:35 PM CDT): [...] & Plan (01/25/2024 12:46 PM CDT): Ongoing PT/OT/TECHNOLOGY TRAINER with generalized weakness, aphasia and R sided facial droop, follows some simple commands, continue statin and eliquis; monitor for fall risk given intermittent agitation; no new meds today but may need PRN due to fall risk Assessment & Plan (01/25/2024 11:13 AM CDT): Mobility is improving now at times getting out of bed without help, continue to monitor for fall risk, PT/OT/TECHNOLOGY TRAINER; continue statin and eliquis Assessment & Plan (01/18/2024 5:52 PM CDT): Ongoing R sided weakness, R sided facial droop, aphasia; reports some improvement in spontaneous movement and mumbling. Continue asa, statin, eliquis; of note has documented statin intolerance, will need to find out specifics Continue PT/OT TECHNOLOGY TRAINER , tube feeds for now with plans for repeat video swallow Type 2 diabetes mellitus with renal complication 01/18/2024 Assessment & Plan (04/09/2024 1:54 PM PERENNIAL HOUSE MANAGER): Glucose logs reviewed and stable, continue HS lantus and mealtime SSI, will try to DC SSI prior to DC home Assessment & Plan (04/06/2024 8:06 PM PERENNIAL HOUSE MANAGER): Stable, continue HS lantus and mealtime SSI, [...] 04/11/2023 At risk for amiodarone toxicity with halfway u se 10/06/2022 Chronic anticoagulation 10/06/2022 Paroxysmal atrial fibrillation 10/06/2022 Assessment & Plan (04/28/2024 2:28 PM PERENNIAL HOUSE MANAGER): Rate controlled, continue metoprolol, amiodarone, eliquis F/u cardiology dr wiley Assessment & Plan (04/13/2024 12:46 PM PERENNIAL HOUSE MANAGER): Rate controlled on exam; continue metoprolol, amiodarone, Eliquis ; no recent falls Assessment & Plan (04/06/2024 8:06 PM PERENNIAL HOUSE MANAGER): Rate controlled; continue metoprolol, amiodarone, Eliquis Assessment & Plan (03/31/2024 2:29 PM PERENNIAL HOUSE MANAGER): Rate controlled on metoprolol, amiodarone; continue b.i.d. Eliquis Assessment & Plan (03/20/2024 8:09 PM PERENNIAL HOUSE MANAGER): Stable on metoprolol, amiodarone and eliquis, conitnue [...] 10/06/2022 Assessment & Plan (04/28/2024 2:26 PM PERENNIAL HOUSE MANAGER): Continue treatments outpatient MWF, epogen on HD days, f/u with nephrology Assessment & Plan (04/09/2024 1:54 PM PERENNIAL HOUSE MANAGER): Tolerating HD MWF, at times using p.r.n. lorazepam with HD treatment, anxiety during access. Monitor electrolytes and weight Continue Epogen Assessment & Plan (04/06/2024 8:08 PM PERENNIAL HOUSE MANAGER): Continue HD MWF, p.r.n. lorazepam with HD treatment. Monitor electrolytes and weight Continue Epogen Assessment & Plan (03/31/2024 2:26 PM PERENNIAL HOUSE MANAGER): Continue HD MWF, continues to use p.r.n. lorazepam with HD treatments; daughter states this is helping,. Monitor electrolytes and weight Continue Epogen Assessment & Plan (03/20/2024 8:08 PM PERENNIAL HOUSE MANAGER): Continue HD MWF, continue to monitor electrolytes and weight, may use p.r.n. lorazepam with HD treatments; no reports of recent agitation with treatments Assessment & Plan (03/15/2024 10:52 AM PERENNIAL HOUSE MANAGER): Continue HD MWF, continue to monitor electrolytes [...] PM CDT): Receiving treatments MWF at [facility], intermittent anxiety, increase zyprexa to [...] PM CDT): Continue treatments MWF at [facility], TID calcium acetate, nephrology following, nepro tube feeds ordered, starting on jevity on admission due to no nepro available Assessment & Plan (01/18/2024 7:41 AM CDT): Continue with dialysis 3 times a week. Continue calcium acetate. Labs with dialysis. Preoperative cardiovascular examination 09/20/19 22 Chronic heart failure with preserved ejection fr action 07/02/2019 Assessment & Plan (04/28/2024 2:26 PM PERENNIAL HOUSE MANAGER): Stable, continue metoprolol, monitor weights with HD Assessment & Plan (03/20/2024 8:08 PM PERENNIAL HOUSE MANAGER): Stable on exam, continue metoprolol, monitor I/O, [...] 02/04 Assessment & Plan (04/06/2024 8:06 PM PERENNIAL HOUSE MANAGER): Weight is stable since rehab admission, continue exercise as tolerated, RD following Assessment & Plan (03/20/2024 8:09 PM PERENNIAL HOUSE MANAGER): Mobility is improving, recently stopped TF and [...] 02/04 Assessment & Plan (04/13/2024 12:48 PM PERENNIAL HOUSE MANAGER): Stable/compensated, continue HD treatments, weekly weights, metoprolol, statin inder cox Assessment & Plan (03/20/2024 8:08 PM PERENNIAL HOUSE MANAGER): Stable on metoprolol and amiodarone, continue HD [...] a associated with type 2 diabetes mellitus ([facility]) 05/20/2013 Overview (08/11/2016): DMII WO CMP UNCNTRLD Assessment & Plan (04/13/2024 12:48 PM PERENNIAL HOUSE MANAGER): Well controlled on lantus 18 units hs with mealtime SSI, continue accuchecks ac and hs Assessment & Plan (03/15/2024 10:54 AM PERENNIAL HOUSE MANAGER): Glucose logs reviewed continue lantus 18 units [...] NOS Assessment & Plan (04/28/2024 2:28 PM PERENNIAL HOUSE MANAGER): Continue Lantus 18 units HS with mealtime SSI and daughter will assist with med administration Bp stable on metoprolol, monitor for BP goal ,140/<90 Continue accuchecks ac and hs Assessment & Plan (03/31/2024 2:28 PM PERENNIAL HOUSE MANAGER): Continue Lantus 18 units HS with mealtime SSI, glucose 236 this a.m., evening glucose 170, continue diabetic diet. BP stable on metoprolol Assessment & Plan (03/15/2024 10:53 AM PERENNIAL HOUSE MANAGER): BP stable on metoprolol 50mg daily, continue [...] NOS Assessment & Plan (04/13/2024 12:51 PM PERENNIAL HOUSE MANAGER): Subclinical hypothyroidism with TSH trending up to 92, encourage appropriate administration of medication in early a.m. on empty stomach, Synthroid increased to 200 mcg daily at previous visit with plan to repeat ths in 6 weeks, T3 and T4 normal Assessment & Plan (03/31/2024 2:30 PM PERENNIAL HOUSE MANAGER): Subclinical hypothyroidism with TSH trending up to 92, encourage appropriate administration of medication in early a.m. on empty stomach, Synthroid increased to 200 mcg daily Assessment & Plan (03/20/2024 8:09 PM PERENNIAL HOUSE MANAGER): Inpatient workup with Tsh elevated with normal t4, ensure medication administration appropriate early am on empty stomach; repeat TSH this week Assessment & Plan (03/15/2024 10:54 AM PERENNIAL HOUSE MANAGER): Inpatient workup with Tsh elevated with normal [...] on room air to complete PO abx, TECHNOLOGY TRAINER to follow, DC on prn duonebs, likely [...] drink = 0.6 oz pur e alcohol) [facility] Utilities Answer Date Recorded In the [...] often do you attend chur ch or hinduism services? Never 02/26/2024 Do you belong to any clubs o r organizations such as sikh groups, unions, fraternal or athletic groups, or [...] place to sleep or slept in a half-way (including now)? No 05/13/2021 Housing Stability Vital [...] time in the past 12 m [facility], were you homeless or living in a half-way (including now)? No 02/26/2024 Personal Safety Answer Date Recorded Have you ever been in or are you currently in a harmful physical or emotional relationship or is someone making you feel afraid or unsafe? Denies 02/25/2024 Comments No Sex and Gender Information Value Date Recorded Sex Assigned at Not on file Legal Sex Female 10:22 AM PERENNIAL HOUSE MANAGER Gender Identity Not on file Sexual Orientation Not on file Last Filed Vital Signs Vital Sign Reading Time Taken Comments Blood Pressure 120/66 07/01/2024 9:38 AM PERENNIAL HOUSE MANAGER Pulse 55 07/01/2024 9:38 AM PERENNIAL HOUSE MANAGER Temperature 36.5 C (97.7 F) 03/03/2024 11:40 AM CDT Respiratory Rate 22 03/05/2024 8:31 AM CDT Oxygen Saturation 97% 07/01/2024 9:38 AM PERENNIAL HOUSE MANAGER Inhaled Oxygen Concentration - - Weight 89.7 kg (197 lb 11.2 oz) 07/01/2024 9:38 AM PERENNIAL HOUSE MANAGER Height 162.6 cm (5' 4) 07/01/2024 9:38 AM PERENNIAL HOUSE MANAGER Body Mass Index 33.94 07/01/2024 9:38 AM PERENNIAL HOUSE MANAGER Plan of Treatment Not on file Procedures Procedure Name Priority Date/Time Associated Diagnosis Comments POCT LIPID PANEL Routine 07/01/2024 9:57 AM PERENNIAL HOUSE MANAGER Need for lipid screening EGFR Routine 03/03/2024 6:45 AM CDT HEMOGLOBIN A1C Routine 02/27/2024 5:59 AM CDT HEPATITIS PANEL, ACUTE STAT 05/08/2022 3:59 PM PERENNIAL HOUSE MANAGER from Last 3 Months or Most Recently Relevant to Health Maintenance Results * POCT lipid panel (07/01/2024 9:57 AM PERENNIAL HOUSE MANAGER) Cholesterol, POC 138 mg/dL Comment:GLU = 176 HDL, POC 17 mg/dL Triglycerides, POC 168 mg/dL LDL Cholesterol POC 88 mg/dL Chol/HDL Ratio, POC 5.2 Non-HDL Cholesterol, POC 121 mg/dL Cholesterol Total, POC 138 mg/dL Capillary blood 07/01/2024 9 :57 AM PERENNIAL HOUSE MANAGER Uriel Gillette MD POINT OF CARE TEST [...] ORDERABLES Final Resu lt Performing Organization Address [facility] Co de Phone Number [address] [address] * (ABNORMAL) Hemoglobin A1c (02/27/2024 5:59 AM CDT) Hgb A1C 7.5(H) 4.0 - 5.6 % Estimated Average Glucose 169 mg/dL [facility] Comment: The ADA recommends reporting an estimated Average Glucose (eAG) with all Hemoglobin A1c results using the equation derived from a study of 507 normal and diabetic adults. Minority populations were underrepresented and children were not included. (Diabetes Care 31:3674-7319, 2008). The eAG is not equivalent to a fasting glucose. Blood 02/27/2024 5:59 AM CDT 02/27/2024 7:11 AM CDT Asif Delgadillo MD LAB BLOOD ORDERABLES Final Re sult Performing Organization Address [facility] de Phone Number [address] [address] * Hepatitis panel, acute (05/08/2022 3:59 PM PERENNIAL HOUSE MANAGER) Pathologist [facility] Hep A IgM Nonreactive Nonreactive [facility] Comment: Interpretive Data: If Hep A IgM Ab is reported as Equivocal, a new sample should be drawn in two weeks for testing. Current interpretive data was last revised on 19. Hep B core IgM Nonreactive Nonreactive [facility] Comment: Interpretive Data If HepB Core IgM Ab is reported as Equivocal, a new sample should be drawn in two weeks for testing. Current interpretive data was last revised on 19. Hep C Ab Nonreactive Nonreactive [facility] Comment: Interpretive Data Nonreactive: Antibodies [...] last revised on 2019. HepBsAg Nonreactive Nonreactive [facility] Blood 05/08/2022 3:59 PM PERENNIAL HOUSE MANAGER 05/08/2022 3:59 PM PERENNIAL HOUSE MANAGER us Mellissa Garcia DO LAB MICROBIOLOGY - GENERAL ORD ERABLES Final Result [facility] [address] Department [place] [address] from Last 3 Months or Most Recently Relevant to Health Maintenance Insurance MEDICARE [facility] MEDICARE [facility] MEDICARE SUPPLEMENT Advance Directives For more information, please contact: [phone] Documents on File Type Date Recorded Patient Manager Recruitment Expl anation ADVANCE DIRECTIVE 03/04/2024 10:[address] - Phys Order for PT Preferences * Full Code (Latest Code Status on File) Date Activated Date Inactivated Comments 02/25/2024 5:55 PM 03/03/2024 4:42 PM * Full Code Date Activated Date Inactivated Comments 05/11/2021 3:52 AM 05/14/2021 8:52 PM Care Teams Cardiopulmonary Technologist Relationship Specialty Start Date End Date Rikki Amezquita MD [address] [facility] [address] [place] [address] PCP - General Family Medicine 07/01/24 Mona Currie MD PhD Medical Oncologist/Archery Instructor Medical Oncology 01/07/21 Sammy Shepard MD Consulting Physician Nephrology 05/14/21
--- OUTSIDE RECORDS SUMMARY | 2024-09-17 18:40 | XMS_ITS | Encounter Summary ---
Author Organization [facility] Address [address] [place] [address] Care Team Providers Care Production Lead Name Role Phone Rikki Amezquita MD Primary Care Provider [phone] Encounter Details Date Type Department Care Team (Latest Contact Info) Description 05/13/2022 3:00 PM DEFENSIVE SECONDARY COACH Hospital Encounter [address] [address] Allison Patrick MD Select Direct [...] Info) Description 09/18/2024 1:45 PM CDT Appointment [facility] Vascular Services [address] [address], [address] [place] [address] [place] [address] [address] [place] [address] [address] [place] [address] [facility] [address] [place] [address] documented as of this encounter Visit Diagnoses Not on filedocumented in this encounter Additional Health Concerns Infection Onset Date Last Indicated Resolved Time CDIFF Under Investigation 05/23/2022 05/23/2022 8:26 AM DEFENSIVE SECONDARY COACH COVID-19 Under Investigation 05/27/2022 05/27/2022 05/27/2022 11:54 PM DEFENSIVE SECONDARY COACH documented as of this encounter Care Teams Production Lead Relationship Specialty Start Date End Date Rikki Amezquita MD [address] [place] [address] PCP - General 11/28/21 documented as of this encounter
--- OUTSIDE RECORDS SUMMARY | 2024-09-17 18:40 | XMS_ITS | Clinical Summary ---
Author Organization [facility] Address [address], [place] [address] Phone Care Team Providers Care Bench Boring Machine Operator Name Role Phone Rikki Amezquita MD Primary Care Provider [phone] Allergies Active Allergy Reactions Criticality Noted Date [...] Weight - - Height 162.6 cm (5' 4) 03/09/2022 9:45 AM CDT Body Mass Index - - Plan of Treatment Health Maintenance Due Date Last Done Comments Pneumococcal PPSV23/PCV13 65 + Years / Low and Medium Risk (1 of 4 - PCV) 1998 Influenza Vaccine (Season Ended) 2025 03/07/20, 02/04/[address] [place] [id number] [place] [id number] [facility] MEDICARE [facility] MEDICARE [facility] Member Subscriber Plan / Payer (Ef fective 2024-Present) Name:Gregoria Rae Relation to Subscriber:Self Name:Gregoria Rae Subscriber ID:Not on file Payer ID:[id number] Group ID:Not on file Type:Not on file Address: [place] [id number] Care Teams Bench Boring Machine Operator Relationship Specialty Start Date End Date Rikki Amezquita MD [address] [facility] [address] [facility] [address] [place] [address] PCP - General Internal Medicine 03/07/22
--- OUTSIDE RECORDS SUMMARY | 2024-09-17 18:40 | XMS_ITS | Clinical Summary ---
Author Organization [facility] Address [address] [place] [address] Care Team Providers Care Special Trackwork Blacksmith Name Role Phone Rikki Amezquita MD Primary Care Provider [phone] Source Comments [facility],non-owned Affiliates and Associated Physician Practices is amultiple site organization consisting of ambulatory clinics and hospital sitesin [place], [place] and [place]. This disclosure is being madepursuant to the Care Everywhere program and may not contain all information available regarding this patient. Last updated 18.[facility] Allergies Active Allergy Reactions Criticality Noted Date [...] fluticasone propionate (Flonase) 50 MCG/ACT nasal spray [place] 2 (two) sprays into the nose once daily Active LORazepam (Ativan) 0.5 MG tablet 1 (one) tablet by Enteral route every 8 hours as needed Active nystatin (Mycostatin) 783419 UNIT/GM powder Apply 1 Application to affected [...] Comments Blood Pressure 172/69 03/25/2024 3:30 PM PATTERN GRADER CUTTER Pulse 55 03/25/2024 3:30 PM PATTERN GRADER CUTTER Temperature 36.4 C (97.5 F) 03/25/2024 3:03 PM PATTERN GRADER CUTTER Respiratory Rate 9 03/25/2024 3:30 PM PATTERN GRADER CUTTER Oxygen Saturation 97% 03/25/2024 3:30 PM PATTERN GRADER CUTTER Inhaled Oxygen Concentration 40% 04/12/2022 3 :16 PM PATTERN GRADER CUTTER Weight 120.2 kg (265 lb) 10/31/2023 10:07 AM CDT Height 157.5 cm (5' 2) 10/31/2023 10:07 AM CDT Body Mass Index 48.47 10/31/2023 10:07 AM CDT Plan of Treatment Upcoming Encounters Date Type Department Care Team (Late st Contact Info) Description 09/18/2024 1:45 PM CDT Appointment [facility] Vascular Services [address] [place], [place] [id number] [place] [address] [place] [address] [place] [address] [place] [address] [place] [address] [place] [address] Health Maintenance Due Date Last [...] age to complete this topic Insurance MEDICARE [facility] MEDICARE Advance Directives * Full Code (Latest Code Status on File) Date Activated Date Inactivated Comments 05/14/2022 8:26 AM 05/28/2022 12:06 PM Care Teams Special Trackwork Blacksmith Relationship Specialty Start Date End Date Rikki Amezquita MD [address] [place] [address] PCP - General 11/28/21
--- OUTSIDE RECORDS SUMMARY | 2024-09-17 18:41 | XMS_ITS ---
Author Organization [facility] Address [address] [place] [address] Care Team Providers Care Coin Collector Name Role Phone Mona Currie MD PhD Unavailable [phone] Sammy Shepard MD Unavailable [phone] Rikki Amezquita MD Primary Care Provider Dialysis Access Sites Type Status Location Placement Date Removal Da te Hemodialysis AV Access Upper arm Active Left Upper Arm - Anterior Procedures Procedure Name Priority Date/Time Associated Diagnosis Comments POCT LIPID PANEL Routine 07/01/2024 9:57 AM YARN WINDER Need for lipid screening EGFR Routine 03/03/2024 6:45 AM CDT HEMOGLOBIN A1C Routine 02/27/2024 5:59 AM CDT HEPATITIS PANEL, ACUTE STAT 05/08/2022 3:59 PM YARN WINDER from Last 3 Months or Most Recently Relevant to Health Maintenance Allergies Active Allergy Reactions Criticality Noted Date Comments Diphenhydramine Other (See comments) Low Restless leg Nickel Rash Medium Nifedipine Chest tightness Medium Jvrrfcs-Svk-Cws Reductase Inhibitors Muscle pain Medium Sulfa Hives [...] tablet (20 mg total) nightly Active banana mtloph-CSY-qmr er 5 gram-45 kcal/60 mL liquid in [...] per tube 1 tablet (200 mcg total) 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 F/u with PCP Assessment & Plan (04/13/2024 12:46 PM YARN WINDER): Recently pulled out by patient, surgical site is healing, continue to clean daily and cover with dry gauze Assessment & Plan (04/09/2024 1:53 PM YARN WINDER): Ok to keep tube out, cover area daily with dry gauze until healed, notify provider for change in condition or sx of dysphagia Assessment & Plan (04/06/2024 8:05 PM YARN WINDER): Now tolerating PO, likely could permanently DC soon, continue with h2o flushes for now Assessment & Plan (03/15/2024 10:55 AM YARN WINDER): Continue to flush q.i.d., able to tolerate food by mouth, [employer] following Assessment & Plan (03/06/2024 9:49 PM [...] on imaging, continue nepro at 40ml/hr with [employer] following for repeat swallow studies Hyperkalemia 01/18/2024 Assessment & Plan (01/18/2024 7:41 AM CDT): Improved after treatment at the hospital. Continue to monitor with dialysis. 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 01/18/2024 Assessment & Plan (04/28/2024 2:31 PM YARN WINDER): Has some improvement with therapy but remains weak with hemiparesis and aphasia, requires full care for all ADLs, unable to reposition self and will require electric hospital bed at home, ongoing PT/OT Contonie asa, statin, eliquis Heart healthy diet with exercise as tolerated Maintain BP and glycemic control F/u PCP Assessment & Plan (04/13/2024 12:49 PM YARN WINDER): Deficits improving have seem to stabilize now ambulatory with walker and gait belt, tolerating PO, speech garbled, continue statin, eliquis, heart healthy diet with exercise as tolerated; may need to transfer to LTC vs home with home health and family to care Assessment & Plan (04/09/2024 1:53 PM YARN WINDER): Deficits improving, now ambulatory with walker and gait belt, tolerating PO, speech remains garbled, continue statin, eliquis, heart healthy diet with exercise as tolerated Assessment & Plan (04/06/2024 8:08 PM YARN WINDER): Improving with therapies, now ambulatory and tolerating PO, speech remains garbled, continue statin, eliquis, heart healthy diet with exercise as tolerated Assessment & Plan (03/31/2024 2:26 PM YARN WINDER): Speech and mobility improving, now ambulatory with walker and gait belt. Continue PT/OT/[employer], continue statin and Eliquis, maintain BP and glycemic control Assessment & Plan (03/20/2024 8:07 PM YARN WINDER): Improving with therapy, continue statin and Eliquis, maintain BP and glycemic control. Continue PT OT, [employer], remains a fall risk F/u with neurology as scheduled, plans to DC home with Assessment & Plan (03/15/2024 10:51 AM YARN WINDER): Improving with therapy, continue statin and Eliquis, maintain BP and glycemic control. Continue PT OT, [employer], remains a fall risk Assessment & Plan (03/06/2024 9:49 PM CDT): Stable, improving with therapies, continue statin, eliquis, PT/OT/[employer], supportive care, continue to advance diet as tolerated Assessment & Plan (02/27/2024 3:02 PM CDT): Stable, improving with therapies, continue statin, eliquis, PT/OT/[employer], supportive care with plans to DC home following rehab stay Assessment & Plan (02/20/2024 1:56 PM CDT): Deficits improving with therapy, continue statin and eliquis, PT/OT/[employer] with video swallow scheduled Continue bID zyprexa 2.5mg for now, may tolerate GDR at subsequent visit Assessment & Plan (02/19/2024 10:51 AM CDT): Improving with therapy, no recurrent episodes of agitation since starting BID zyprexa, continue statin and eliquis, PT/OT/[employer] with video swallow scheduled Assessment & Plan (02/11/2024 1:32 PM CDT): Improving, continue statin and eliquis, PT/OT. [employer] following for advancement of diet, will schedule Zyprexa 2.5mg HS rather than In am, conitnue supportive care, fall precautions Assessment & Plan (02/08/2024 3:56 PM CDT): Mobility and speech improving with intermittent agitation, fall risk, zyprexa increased to 2.5mg daily as unable to be redirected at times. Continue statin, eliquis, PT/TO/[employer], TF nepro per RD recs Assessment & Plan (02/03/2024 8:55 AM CDT): Mobility is improving, remains aphasic, able to follow simple commands and has spontaneous movements of all extremities; continue statin, eliquis, glycemic control, BP management, PT/OT/[employer] Assessment & Plan (02/01/2024 9:33 AM CDT): Mobility is improving, intermittent anxiety, will need to monitor and provide supportive care, attempt to avoid benzos or antipsychotics although may need prn low dose meds due to fall risk and inability to be redirected; continue statin, eliquis, glycemic control, BP management, PT/OT/[employer] Assessment & Plan (01/28/2024 2:35 PM CDT): [...] & Plan (01/25/2024 12:46 PM CDT): Ongoing PT/OT/[employer] with generalized weakness, aphasia and R sided facial droop, follows some simple commands, continue statin and eliquis; monitor for fall risk given intermittent agitation; no new meds today but may need PRN due to fall risk Assessment & Plan (01/25/2024 11:13 AM CDT): Mobility is improving now at times getting out of bed without help, continue to monitor for fall risk, PT/OT/[employer]; continue statin and eliquis Assessment & Plan (01/18/2024 5:52 PM CDT): Ongoing R sided weakness, R sided facial droop, aphasia; reports some improvement in spontaneous movement and mumbling. 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 Eliquis Assessment & Plan (03/20/2024 8:09 PM YARN WINDER): Stable on metoprolol, amiodarone and eliquis, conitnue [...] 10/06/2022 Assessment & Plan (04/28/2024 2:26 PM YARN WINDER): Continue treatments outpatient MWF, epogen on HD days, f/u with nephrology Assessment & Plan (04/09/2024 1:54 PM YARN WINDER): Tolerating HD MWF, at times using p.r.n. lorazepam with HD treatment, anxiety during access. Monitor electrolytes and weight Continue Epogen Assessment & Plan (04/06/2024 8:08 PM YARN WINDER): Continue HD MWF, p.r.n. lorazepam with HD treatment. Monitor electrolytes and weight Continue Epogen Assessment & Plan (03/31/2024 2:26 PM YARN WINDER): Continue HD MWF, continues to use p.r.n. lorazepam with HD treatments; daughter states this is helping,. Monitor electrolytes and weight Continue Epogen Assessment & Plan (03/20/2024 8:08 PM YARN WINDER): Continue HD MWF, continue to monitor electrolytes and weight, may use p.r.n. lorazepam with HD treatments; no reports of recent agitation with treatments Assessment & Plan (03/15/2024 10:52 AM YARN WINDER): Continue HD MWF, continue to monitor electrolytes [...] 3:59 PM CDT): Receiving treatments MWF at [facility], intermittent anxiety, increase zyprexa to daily, [...] 5:55 PM CDT): Continue treatments MWF at [facility], TID calcium acetate, nephrology following, nepro tube feeds ordered, starting on jevity on admission due to no nepro available Assessment & Plan (01/18/2024 7:41 AM CDT): Continue with dialysis 3 times a week. Continue calcium acetate. Labs with dialysis. Preoperative cardiovascular examination 09/20/19 22 Chronic heart failure with preserved ejection fr action 07/02/2019 Assessment & Plan (04/28/2024 2:26 PM YARN WINDER): Stable, continue metoprolol, monitor weights with HD Assessment & Plan (03/20/2024 8:08 PM YARN WINDER): Stable on exam, continue metoprolol, monitor I/O, [...] 02/04 Assessment & Plan (04/06/2024 8:06 PM YARN WINDER): Weight is stable since rehab admission, continue exercise as tolerated, RD following Assessment & Plan (03/20/2024 8:09 PM YARN WINDER): Mobility is improving, recently stopped TF and [...] 02/04 Assessment & Plan (04/13/2024 12:48 PM YARN WINDER): Stable/compensated, continue HD treatments, weekly weights, metoprolol, statin amio, eliquis Assessment & Plan (03/20/2024 8:08 PM YARN WINDER): Stable on metoprolol and amiodarone, continue HD [...] 2 diabetes mellitus ([facility]) 05/20/2013 Overview (08/11/2016): DMII WO CMP UNCNTRLD Assessment & Plan (04/13/2024 12:48 PM YARN WINDER): Well controlled on lantus 18 units hs with mealtime SSI, continue accuchecks ac and hs Assessment & Plan (03/15/2024 10:54 AM YARN WINDER): Glucose logs reviewed continue lantus 18 units [...] NOS Assessment & Plan (04/28/2024 2:28 PM YARN WINDER): Continue Lantus 18 units HS with mealtime SSI and daughter will assist with med administration Bp stable on metoprolol, monitor for BP goal ,140/<90 Continue accuchecks ac and hs Assessment & Plan (03/31/2024 2:28 PM YARN WINDER): Continue Lantus 18 units HS with mealtime SSI, glucose 236 this a.m., evening glucose 170, continue diabetic diet. BP stable on metoprolol Assessment & Plan (03/15/2024 10:53 AM YARN WINDER): BP stable on metoprolol 50mg daily, continue [...] NOS Assessment & Plan (04/13/2024 12:51 PM YARN WINDER): Subclinical hypothyroidism with TSH trending up to 92, encourage appropriate administration of medication in early a.m. on empty stomach, Synthroid increased to 200 mcg daily at previous visit with plan to repeat ths in 6 weeks, T3 and T4 normal Assessment & Plan (03/31/2024 2:30 PM YARN WINDER): Subclinical hypothyroidism with TSH trending up to 92, encourage appropriate administration of medication in early a.m. on empty stomach, Synthroid increased to 200 mcg daily Assessment & Plan (03/20/2024 8:09 PM YARN WINDER): Inpatient workup with Tsh elevated with normal t4, ensure medication administration appropriate early am on empty stomach; repeat TSH this week Assessment & Plan (03/15/2024 10:54 AM YARN WINDER): Inpatient workup with Tsh elevated with normal [...] drink = 0.6 oz pur e alcohol) [facility] Utilities Answer Date Recorded In the past 12 months has [employer], gas, oil, or water [employer] threatened to shut off services in your [...] often do you attend chur ch or worship services? Never 02/26/2024 Do you belong to any clubs o r organizations such as pentecostalism groups, unions, fraternal or athletic groups, or [...] place to sleep or slept in a nursing home (including now)? No 05/13/2021 Housing Stability Vital Sign Answer Yonathan e Recorded In the last 12 months, was t here a time when you were not able to pay the mortgage or rent on time? No 02/26/2024 In the past 12 months, how m any times have you moved where you were living? 0 02/26/2024 At any time in the past [address] [facility], were you homeless or living in a nursing home (including now)? No 02/26/2024 Personal Safety Answer Date Recorded Have you ever been in or are you currently in a harmful physical or emotional relationship or is someone making you feel afraid or unsafe? Denies 02/25/2024 Comments No Sex and Gender Information Value Date Recorded Sex Assigned at Not on file Legal Sex Female 10:22 AM YARN WINDER Gender Identity Not on file Sexual Orientation Not on file Last Filed Vital Signs Vital Sign Reading Time Taken Comments Blood Pressure 120/66 07/01/2024 9:38 AM YARN WINDER Pulse 55 07/01/2024 9:38 AM YARN WINDER Temperature 36.5 C (97.7 F) 03/03/2024 11:40 AM CDT Respiratory Rate 22 03/05/2024 8:31 AM CDT Oxygen Saturation 97% 07/01/2024 9:38 AM YARN WINDER Inhaled Oxygen Concentration - - Weight 89.7 kg (197 lb 11.2 oz) 07/01/2024 9:38 AM YARN WINDER Height 162.6 cm (5' 4) 07/01/2024 9:38 AM YARN WINDER Body Mass Index 33.94 07/01/2024 9:38 AM YARN WINDER Results * POCT lipid panel (07/01/2024 9:57 AM YARN WINDER) Cholesterol, POC 138 mg/dL Comment:GLU = 176 HDL, POC 17 mg/dL Triglycerides, POC 168 mg/dL LDL Cholesterol POC 88 mg/dL Chol/HDL Ratio, POC 5.2 Non-HDL Cholesterol, POC 121 mg/dL Cholesterol Total, POC 138 mg/dL Capillary blood 07/01/2024 9 :57 AM YARN WINDER us Uriel Gillette MD POINT OF CARE [...] BLOOD ORDERABLES Final Resu lt [facility] [address] [facility] [address] [facility] Department [place] [address] * (ABNORMAL) Hemoglobin A1c (02/27/2024 5:59 AM CDT) Hgb A1C 7.5(H) 4.0 - 5.6 % Estimated Average Glucose 169 mg/dL [facility] Comment: The ADA recommends reporting an estimated Average Glucose (eAG) with all Hemoglobin A1c results using the equation derived from a study of 507 normal and diabetic adults. Minority populations were underrepresented and children were not included. (Diabetes Care 31:9125-6775, 2008). The eAG is not equivalent to a fasting glucose. Blood 02/27/2024 5:59 AM CDT 02/27/2024 7:11 AM CDT Asif Delgadillo MD LAB BLOOD ORDERABLES Final Re sult Performing Organization Address City/[facility] [address]/ZIP Co de Phone Number [facility] [address] [facility] [address] [facility] Department [place] [address] * Hepatitis panel, acute (05/08/2022 3:59 PM YARN WINDER) Hep A IgM Nonreactive Nonreactive [facility] Comment: Interpretive Data: If Hep A IgM Ab is reported as Equivocal, a new sample should be drawn in two weeks for testing. Current interpretive data was last revised on 19. Hep B core IgM Nonreactive Nonreactive [facility] Comment: Interpretive Data If HepB Core IgM Ab is reported as Equivocal, a new sample should be drawn in two weeks for testing. Current interpretive data was last revised on 19. Hep C Ab Nonreactive Nonreactive [facility] Comment: Interpretive Data Nonreactive: Antibodies to [...] last revised on 2019. HepBsAg Nonreactive Nonreactive [facility] Blood 05/08/2022 3:59 PM YARN WINDER 05/08/2022 3:59 PM YARN WINDER us Mellissa Garcia DO LAB MICROBIOLOGY - GENERAL ORD ERABLES Final Result Performing Organization Address City/[facility] [address]/ZIP Co de Phone Number [facility] [address] Department [place] [address] from Last 3 Months or Most Recently Relevant to Health Maintenance
--- OUTSIDE RECORDS SUMMARY | 2024-09-17 18:41 | XMS_ITS | Clinical Summary ---
Author Organization [facility] Address [address] [place] [address] Care Team Providers Care Sandwich Machine Operator Name Role Phone Mona Currie MD PhD Unavailable [phone] Sammy Shepard MD Unavailable [phone] Rikki Amezquita MD Primary Care Provider Allergies Active Allergy Reactions Criticality Noted Date Comments Diphenhydramine Other (See comments) Low Restless leg Nickel Rash Medium Nifedipine Chest tightness Medium Vlzedyd-Gud-Eii Reductase Inhibitors Muscle pain Medium Sulfa Hives [...] tablet (20 mg total) nightly Active banana [id number] er 5 gram-45 kcal/60 mL liquid in [...] per tube 1 tablet (200 mcg total) manager disaster recovery before breakfast 4 Active Additional Information Patient [...] 04/13/2024 Assessment & Plan (04/28/2024 2:26 PM TRAFFIC SIGN ERECTION SUPERVISOR): Stable on room air, continue trelegy, spiriva, prn duonebs Assessment & Plan (04/13/2024 12:50 PM TRAFFIC SIGN ERECTION SUPERVISOR): Stable on room air, continue trelegy, spiriva, [...] 02/26/2024 Assessment & Plan (04/28/2024 2:29 PM TRAFFIC SIGN ERECTION SUPERVISOR): Hb 9-10 at baseline, stable, continue epogen [...] 01/25/2024 Assessment & Plan (04/28/2024 2:25 PM TRAFFIC SIGN ERECTION SUPERVISOR): Tube removed, keep healing stoma clean, dry, covered. F/u with PCP Assessment & Plan (04/13/2024 12:46 PM TRAFFIC SIGN ERECTION SUPERVISOR): Recently pulled out by patient, surgical site is healing, continue to clean daily and cover with dry gauze Assessment & Plan (04/09/2024 1:53 PM TRAFFIC SIGN ERECTION SUPERVISOR): Ok to keep tube out, cover area daily with dry gauze until healed, notify provider for change in condition or sx of dysphagia Assessment & Plan (04/06/2024 8:05 PM TRAFFIC SIGN ERECTION SUPERVISOR): Now tolerating PO, likely could permanently DC soon, continue with h2o flushes for now Assessment & Plan (03/15/2024 10:55 AM TRAFFIC SIGN ERECTION SUPERVISOR): Continue to flush q.i.d., able to tolerate food by mouth, SNOW GROOMER following Assessment & Plan (03/06/2024 9:49 PM [...] on imaging, continue nepro at 40ml/hr with SNOW GROOMER following for repeat swallow studies Hyperkalemia 01/18/2024 Assessment & Plan (01/18/2024 7:41 AM CDT): Improved after treatment at the hospital. Continue to monitor with dialysis. 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 01/18/2024 Assessment & Plan (04/28/2024 2:31 PM TRAFFIC SIGN ERECTION SUPERVISOR): Has some improvement with therapy but remains weak with hemiparesis and aphasia, requires full care for all ADLs, unable to reposition self and will require electric hospital bed at home, ongoing PT/OT Contonie asa, statin, eliquis Heart healthy diet with exercise as tolerated Maintain BP and glycemic control F/u PCP Assessment & Plan (04/13/2024 12:49 PM TRAFFIC SIGN ERECTION SUPERVISOR): Deficits improving have seem to stabilize now ambulatory with walker and gait belt, tolerating PO, speech garbled, continue statin, eliquis, heart healthy diet with exercise as tolerated; may need to transfer to LTC vs home with home health and family to care Assessment & Plan (04/09/2024 1:53 PM TRAFFIC SIGN ERECTION SUPERVISOR): Deficits improving, now ambulatory with walker and gait belt, tolerating PO, speech remains garbled, continue statin, eliquis, heart healthy diet with exercise as tolerated Assessment & Plan (04/06/2024 8:08 PM TRAFFIC SIGN ERECTION SUPERVISOR): Improving with therapies, now ambulatory and tolerating PO, speech remains garbled, continue statin, eliquis, heart healthy diet with exercise as tolerated Assessment & Plan (03/31/2024 2:26 PM TRAFFIC SIGN ERECTION SUPERVISOR): Speech and mobility improving, now ambulatory with walker and gait belt. Continue PT/OT/SNOW GROOMER, continue statin and Eliquis, maintain BP and glycemic control Assessment & Plan (03/20/2024 8:07 PM TRAFFIC SIGN ERECTION SUPERVISOR): Improving with therapy, continue statin and Eliquis, maintain BP and glycemic control. Continue PT OT, SNOW GROOMER, remains a fall risk F/u with neurology as scheduled, plans to DC home with Assessment & Plan (03/15/2024 10:51 AM TRAFFIC SIGN ERECTION SUPERVISOR): Improving with therapy, continue statin and Eliquis, maintain BP and glycemic control. Continue PT OT, SNOW GROOMER, remains a fall risk Assessment & Plan (03/06/2024 9:49 PM CDT): Stable, improving with therapies, continue statin, eliquis, PT/OT/SNOW GROOMER, supportive care, continue to advance diet as tolerated Assessment & Plan (02/27/2024 3:02 PM CDT): Stable, improving with therapies, continue statin, eliquis, PT/OT/SNOW GROOMER, supportive care with plans to DC home following rehab stay Assessment & Plan (02/20/2024 1:56 PM CDT): Deficits improving with therapy, continue statin and eliquis, PT/OT/SNOW GROOMER with video swallow scheduled Continue bID zyprexa 2.5mg for now, may tolerate GDR at subsequent visit Assessment & Plan (02/19/2024 10:51 AM CDT): Improving with therapy, no recurrent episodes of agitation since starting BID zyprexa, continue statin and eliquis, PT/OT/SNOW GROOMER with video swallow scheduled Assessment & Plan (02/11/2024 1:32 PM CDT): Improving, continue statin and eliquis, PT/OT. SNOW GROOMER following for advancement of diet, will schedule Zyprexa 2.5mg HS rather than In am, conitnue supportive care, fall precautions Assessment & Plan (02/08/2024 3:56 PM CDT): Mobility and speech improving with intermittent agitation, fall risk, zyprexa increased to 2.5mg daily as unable to be redirected at times. Continue statin, eliquis, PT/TO/SNOW GROOMER, TF zainab per RD recs Assessment & Plan (02/03/2024 8:55 AM CDT): Mobility is improving, remains aphasic, able to follow simple commands and has spontaneous movements of all extremities; continue statin, eliquis, glycemic control, BP management, PT/OT/SNOW GROOMER Assessment & Plan (02/01/2024 9:33 AM CDT): Mobility is improving, intermittent anxiety, will need to monitor and provide supportive care, attempt to avoid benzos or antipsychotics although may need prn low dose meds due to fall risk and inability to be redirected; continue statin, eliquis, glycemic control, BP management, PT/OT/SNOW GROOMER Assessment & Plan (01/28/2024 2:35 PM CDT): [...] & Plan (01/25/2024 12:46 PM CDT): Ongoing PT/OT/SNOW GROOMER with generalized weakness, aphasia and R sided facial droop, follows some simple commands, continue statin and eliquis; monitor for fall risk given intermittent agitation; no new meds today but may need PRN due to fall risk Assessment & Plan (01/25/2024 11:13 AM CDT): Mobility is improving now at times getting out of bed without help, continue to monitor for fall risk, PT/OT/SNOW GROOMER; continue statin and eliquis Assessment & Plan (01/18/2024 5:52 PM CDT): Ongoing R sided weakness, R sided facial droop, aphasia; reports some improvement in spontaneous movement and mumbling. Continue asa, statin, eliquis; of note has documented statin intolerance, will need to find out specifics Continue PT/OT SNOW GROOMER , tube feeds for now with plans for repeat video swallow Type 2 diabetes mellitus with renal complication 01/18/2024 Assessment & Plan (04/09/2024 1:54 PM TRAFFIC SIGN ERECTION SUPERVISOR): Glucose logs reviewed and stable, continue HS lantus and mealtime SSI, will try to DC SSI prior to DC home Assessment & Plan (04/06/2024 8:06 PM TRAFFIC SIGN ERECTION SUPERVISOR): Stable, continue HS lantus and mealtime SSI, [...] 04/11/2023 At risk for amiodarone toxicity with watermelon inspector u se 10/06/2022 Chronic anticoagulation 10/06/2022 Paroxysmal atrial fibrillation 10/06/2022 Assessment & Plan (04/28/2024 2:28 PM TRAFFIC SIGN ERECTION SUPERVISOR): Rate controlled, continue metoprolol, amiodarone, eliquis F/u cardiology dr wiley Assessment & Plan (04/13/2024 12:46 PM TRAFFIC SIGN ERECTION SUPERVISOR): Rate controlled on exam; continue metoprolol, amiodarone, Eliquis ; no recent falls Assessment & Plan (04/06/2024 8:06 PM TRAFFIC SIGN ERECTION SUPERVISOR): Rate controlled; continue metoprolol, amiodarone, Eliquis Assessment & Plan (03/31/2024 2:29 PM TRAFFIC SIGN ERECTION SUPERVISOR): Rate controlled on metoprolol, amiodarone; continue b.i.d. Eliquis Assessment & Plan (03/20/2024 8:09 PM TRAFFIC SIGN ERECTION SUPERVISOR): Stable on metoprolol, amiodarone and eliquis, conitnue [...] 10/06/2022 Assessment & Plan (04/28/2024 2:26 PM TRAFFIC SIGN ERECTION SUPERVISOR): Continue treatments outpatient MWF, epogen on HD days, f/u with nephrology Assessment & Plan (04/09/2024 1:54 PM TRAFFIC SIGN ERECTION SUPERVISOR): Tolerating HD MWF, at times using p.r.n. lorazepam with HD treatment, anxiety during access. Monitor electrolytes and weight Continue Epogen Assessment & Plan (04/06/2024 8:08 PM TRAFFIC SIGN ERECTION SUPERVISOR): Continue HD MWF, p.r.n. lorazepam with HD treatment. Monitor electrolytes and weight Continue Epogen Assessment & Plan (03/31/2024 2:26 PM TRAFFIC SIGN ERECTION SUPERVISOR): Continue HD MWF, continues to use p.r.n. lorazepam with HD treatments; daughter states this is helping,. Monitor electrolytes and weight Continue Epogen Assessment & Plan (03/20/2024 8:08 PM TRAFFIC SIGN ERECTION SUPERVISOR): Continue HD MWF, continue to monitor electrolytes and weight, may use p.r.n. lorazepam with HD treatments; no reports of recent agitation with treatments Assessment & Plan (03/15/2024 10:52 AM TRAFFIC SIGN ERECTION SUPERVISOR): Continue HD MWF, continue to monitor electrolytes [...] 3:59 PM CDT): Receiving treatments MWF at [facility], intermittent anxiety, increase zyprexa to daily, may [...] 5:55 PM CDT): Continue treatments MWF at [facility], TID calcium acetate, nephrology following, nepro tube feeds ordered, starting on jevity on admission due to no nepro available Assessment & Plan (01/18/2024 7:41 AM CDT): Continue with dialysis 3 times a week. Continue calcium acetate. Labs with dialysis. Preoperative cardiovascular examination 09/20/19 22 Chronic heart failure with preserved ejection fr action 07/02/2019 Assessment & Plan (04/28/2024 2:26 PM TRAFFIC SIGN ERECTION SUPERVISOR): Stable, continue metoprolol, monitor weights with HD Assessment & Plan (03/20/2024 8:08 PM TRAFFIC SIGN ERECTION SUPERVISOR): Stable on exam, continue metoprolol, monitor I/O, [...] 02/04 Assessment & Plan (04/06/2024 8:06 PM TRAFFIC SIGN ERECTION SUPERVISOR): Weight is stable since rehab admission, continue exercise as tolerated, RD following Assessment & Plan (03/20/2024 8:09 PM TRAFFIC SIGN ERECTION SUPERVISOR): Mobility is improving, recently stopped TF and [...] 02/04 Assessment & Plan (04/13/2024 12:48 PM TRAFFIC SIGN ERECTION SUPERVISOR): Stable/compensated, continue HD treatments, weekly weights, metoprolol, statin amio, eliquis Assessment & Plan (03/20/2024 8:08 PM TRAFFIC SIGN ERECTION SUPERVISOR): Stable on metoprolol and amiodarone, continue HD [...] a associated with type 2 diabetes mellitus ([facility]) 05/20/2013 Overview (08/11/2016): DMII WO CMP UNCNTRLD Assessment & Plan (04/13/2024 12:48 PM TRAFFIC SIGN ERECTION SUPERVISOR): Well controlled on lantus 18 units hs with mealtime SSI, continue accuchecks ac and hs Assessment & Plan (03/15/2024 10:54 AM TRAFFIC SIGN ERECTION SUPERVISOR): Glucose logs reviewed continue lantus 18 units [...] NOS Assessment & Plan (04/28/2024 2:28 PM TRAFFIC SIGN ERECTION SUPERVISOR): Continue Lantus 18 units HS with mealtime SSI and daughter will assist with med administration Bp stable on metoprolol, monitor for BP goal ,140/<90 Continue accuchecks ac and hs Assessment & Plan (03/31/2024 2:28 PM TRAFFIC SIGN ERECTION SUPERVISOR): Continue Lantus 18 units HS with mealtime SSI, glucose 236 this a.m., evening glucose 170, continue diabetic diet. BP stable on metoprolol Assessment & Plan (03/15/2024 10:53 AM TRAFFIC SIGN ERECTION SUPERVISOR): BP stable on metoprolol 50mg daily, continue [...] NOS Assessment & Plan (04/13/2024 12:51 PM TRAFFIC SIGN ERECTION SUPERVISOR): Subclinical hypothyroidism with TSH trending up to 92, encourage appropriate administration of medication in early a.m. on empty stomach, Synthroid increased to 200 mcg daily at previous visit with plan to repeat ths in 6 weeks, T3 and T4 normal Assessment & Plan (03/31/2024 2:30 PM TRAFFIC SIGN ERECTION SUPERVISOR): Subclinical hypothyroidism with TSH trending up to 92, encourage appropriate administration of medication in early a.m. on empty stomach, Synthroid increased to 200 mcg daily Assessment & Plan (03/20/2024 8:09 PM TRAFFIC SIGN ERECTION SUPERVISOR): Inpatient workup with Tsh elevated with normal t4, ensure medication administration appropriate early am on empty stomach; repeat TSH this week Assessment & Plan (03/15/2024 10:54 AM TRAFFIC SIGN ERECTION SUPERVISOR): Inpatient workup with Tsh elevated with normal [...] on room air to complete PO abx, SNOW GROOMER to follow, DC on prn duonebs, likely could DC Urinary tract infection without hematuria 05/11/2021 02/01/2024 Hyperlipidemia 04/22/2012 09/19/2021 Overview (08/10/2016): HYPERLIPIDEMIA NEC/NOS Encounters Date Type Department Care Team Description 07/01/2024 9:30 AM TRAFFIC SIGN ERECTION SUPERVISOR Office Visit [facility] Cardiology [address] [place] [address] Uriel Gillette MD Paroxysmal atrial fibrillation (HCC) (Primary Dx); Need for lipid screening from Last 3 Months Immunizations Immunization Administration [...] drink = 0.6 oz pur e alcohol) [facility] Utilities Answer Date Recorded In [...] often do you attend chur ch or uatsdin services? Never 02/26/2024 Do you belong to any clubs o r organizations such as confucianist groups, unions, fraternal or athletic groups, or [...] place to sleep or slept in a long-term (including now)? No 05/13/2021 Housing Stability Vital [...] were you homeless or living in a long-term (including now)? No 02/26/2024 Personal Safety Answer Date Recorded Have you ever been in or are you currently in a harmful physical or emotional relationship or is someone making you feel afraid or unsafe? Denies 02/25/2024 Comments No Sex and Gender Information Value Date Recorded Sex Assigned at Not on file Legal Sex Female 10:22 AM TRAFFIC SIGN ERECTION SUPERVISOR Gender Identity Not on file Sexual Orientation Not on file Obstetrics History Last Filed Vital Signs Vital Sign Reading Time Taken Comments Blood Pressure 120/66 07/01/2024 9:38 AM TRAFFIC SIGN ERECTION SUPERVISOR Pulse 55 07/01/2024 9:38 AM TRAFFIC SIGN ERECTION SUPERVISOR Temperature 36.5 C (97.7 F) 03/03/2024 11:40 AM CDT Respiratory Rate 22 03/05/2024 8:31 AM CDT Oxygen Saturation 97% 07/01/2024 9:38 AM TRAFFIC SIGN ERECTION SUPERVISOR Inhaled Oxygen Concentration - - Weight 89.7 kg (197 lb 11.2 oz) 07/01/2024 9:38 AM TRAFFIC SIGN ERECTION SUPERVISOR Height 162.6 cm (5' 4) 07/01/2024 9:38 AM TRAFFIC SIGN ERECTION SUPERVISOR Body Mass Index 33.94 07/01/2024 9:38 AM TRAFFIC SIGN ERECTION SUPERVISOR Plan of Treatment Health Maintenance Due Date [...] POCT LIPID PANEL Routine 07/01/2024 9:57 AM TRAFFIC SIGN ERECTION SUPERVISOR Need for lipid screening EGFR Routine 03/03/2024 6:45 AM CDT HEMOGLOBIN A1C Routine 02/27/2024 5:59 AM CDT HEPATITIS PANEL, ACUTE STAT 05/08/2022 3:59 PM TRAFFIC SIGN ERECTION SUPERVISOR from Last 3 Months or Most Recently Relevant to Health Maintenance Results * POCT lipid panel (07/01/2024 9:57 AM TRAFFIC SIGN ERECTION SUPERVISOR) Cholesterol, POC 138 mg/dL Comment:GLU = 176 HDL, POC 17 mg/dL Triglycerides, POC 168 mg/dL LDL Cholesterol POC 88 mg/dL Chol/HDL Ratio, POC 5.2 Non-HDL Cholesterol, POC 121 mg/dL Cholesterol Total, POC 138 mg/dL Capillary blood 07/01/2024 9 :57 AM TRAFFIC SIGN ERECTION SUPERVISOR Uriel Gillette MD POINT OF CARE TEST [...] ORDERABLES Final Resu lt Performing Organization Address [facility] de Phone Number [address] [address] * (ABNORMAL) Hemoglobin A1c (02/27/2024 5:59 AM CDT) Pathologist [facility] Hgb A1C 7.5(H) 4.0 - 5.6 % Estimated Average Glucose 169 mg/dL [facility] Comment: The ADA recommends reporting an estimated Average Glucose (eAG) with all Hemoglobin A1c results using the equation derived from a study of 507 normal and diabetic adults. Minority populations were underrepresented and children were not included. (Diabetes Care 31:0740-8246, 2008). The eAG is not equivalent to a fasting glucose. Blood 02/27/2024 5:59 AM CDT 02/27/2024 7:11 AM CDT Asif Delgadillo MD LAB BLOOD ORDERABLES Final Re sult Performing Organization Address [facility] de Phone Number [phone] [place] [address] * Hepatitis panel, acute (05/08/2022 3:59 PM TRAFFIC SIGN ERECTION SUPERVISOR) [facility] Hep A IgM Nonreactive Nonreactive [facility] Comment: Interpretive Data: If Hep A IgM Ab is reported as Equivocal, a new sample should be drawn in two weeks for testing. Current interpretive data was last revised on 19. Hep B core IgM Nonreactive Nonreactive [facility] Comment: Interpretive Data If HepB Core IgM Ab is reported as Equivocal, a new sample should be drawn in two weeks for testing. Current interpretive data was last revised on 19. Hep C Ab Nonreactive Nonreactive [facility] Comment: Interpretive Data Nonreactive: Antibodies to HCV [...] revised on 2019. HepBsAg Nonreactive Nonreactive [facility] Blood 05/08/2022 3:59 PM TRAFFIC SIGN ERECTION SUPERVISOR 05/08/2022 3:59 PM TRAFFIC SIGN ERECTION SUPERVISOR us Mellissa Garcia DO LAB MICROBIOLOGY - GENERAL ORD ERABLES Final Result [facility] [address] Department [place] [address] from Last 3 Months or Most Recently Relevant to Health Maintenance Insurance MEDICARE [facility] MEDICARE [facility] MEDICARE SUPPLEMENT [id number] [id number] Advance Directives For more information, please contact: [phone] Documents on File Type Date Recorded Patient Tattoo Identifier Expl anation ADVANCE DIRECTIVE 03/04/2024 10:[address] - Phys Order for PT Preferences * Full Code (Latest Code Status on File) Date Activated Date Inactivated Comments 02/25/2024 5:55 PM 03/03/2024 4:42 PM * Full Code Date Activated Date Inactivated Comments 05/11/2021 3:52 AM 05/14/2021 8:52 PM Care Teams Sandwich Machine Operator Relationship Specialty Start Date End Date Rikki Amezquita MD [address] [place] [address] PCP - General Family Medicine 07/01/24 Mona Currie MD PhD Medical Oncologist/Sleeve Presser Operator Medical Oncology 01/07/21 Sammy Shepard MD Consulting Physician Nephrology 05/14/21
--- OUTSIDE RECORDS SUMMARY | 2024-09-17 18:41 | XMS_ITS | Clinical Summary ---
Author Organization [facility] Address [address] [place] [id number] Care Team Providers Care Dinkey Operator Slate Name Role Phone Unavailable Primary Care Provider [...]
[2024-09-17] MEDS: ACETAMINOPHEN 500 MG TABLET 1000 MG PO (18:47)
[2024-09-17 19:27] LABS: Add Urine Microscopic? YES; Appearance Urine Turbid (Clear); Bacteria Urine None Seen /hpf; Bilirubin Urine Negative (Negative); Blood Urine Negative (Negative); Color Urine Yellow (Yellow); Glucose Urine UA 1+ mg/dL (Negative); Hyaline Casts Urine Present /lpf; Ketones Urine Negative (Negative); Leukocyte Esterase Ur 3+ LEU/UL (Negative); Nitrate Urine Negative (Negative); Protein Urine 3+ mg/dL (Negative); Specific Grav Ur 1.013 (1.001-1.035); Squamous Epithelial Cell Urine Occasional /hpf (Few); WBC Urine >100 /hpf (0-3); pH Urine 8.5 (5.0-9.0)
[2024-09-17 20:03] LABS: Basophils Absolute Auto 0.1 K/mm3 (0.0-0.1); Basophils Percent Auto 0.6 % (0.2-1.2); Eosinophils Absolute Auto 0.2 K/mm3 (0-0.3); Eosinophils Percent Auto 2.3 % (0-4.4); Hematocrit 30.1 % (37.0-47.0); Immature Granulocyte Absolute 0.04 K/mm3 (0.00-0.031); Immature Granulocyte Percent A 0.5 % (0-0.5); Lymphocytes Absolute Auto 0.84 K/mm3 (0.9-3.2); Lymphocytes Percent Auto 10.3 % (18.3-44.2); Mean Corpuscular HGB Conc 29.9 g/dl (32-36); Mean Corpuscular Hemoglobin 28.7 pg (26-34); Mean Corpuscular Volume 95.9 fl (80-100); Mean Platelet Volume 10.8 fl (7.4-10.4); Monocytes Absolute Auto 0.9 K/mm3 (0.1-0.6); Monocytes Percent Auto 10.5 % (2.6-8.5); Neutrophils Absolute Auto 6.2 K/mm3 (1.3-6.7); Neutrophils Percent Auto 75.8 % (45.5-73.1); Platelet Count Result 197 k/mm3 (150-375); Red Blood Count 3.14 M/mm3 (4.2-5.4); White Blood Count 8.2 K/mm3 (4.5-10.0)
[2024-09-17 20:13] LABS: Alanine Aminotransferase 15 U/L (6-35); Albumin Level 3.4 g/dL (3.5-5.1); Alkaline Phosphatase 100 U/L (38-126); Anion Gap 5 mmol/L (4-12); Aspartate Amino Transferase 26 U/L (14-36); Bilirubin,Total 0.7 mg/dL (0.2-1.3); Blood Urea Nitrogen 17 mg/dL (7-17); Carbon Dioxide 37 mmol/L (22-30); Chloride 93 mmol/L (98-107); Estimated CRCL calculation 17 ml/min; Estimated Glomerular Filt Rate 18; Glucose 231 mg/dL (65-110); Potassium 3.8 mmol/L (3.4-5.0); Sodium 135 mmol/L (137-145)
[2024-09-17 20:14] LABS: Lactic Acid Reflex 1.6 mmol/L (0.7-2.0)
[2024-09-17 20:16] LABS: INR 1.1; Partial Thromboplastin Time 31.8 Seconds (22.3-36.8)
[2024-09-17 20:23] LABS: Anisocytosis 2+; Band Neutrophils Percent 0 % (0-6); Hypochromasia 1+; Platelet Estimate Adequate (Adequate); Schistocytes None Seen
[2024-09-17 20:42] LABS: Influenza A QL RT-PCR Negative (Negative); Influenza B QL RT-PCR Negative (Negative); RSV RNA, RT-PCR Negative (Negative); SARS-CoV-2 RNA PCR Positive (Negative)
--- NOTE | 2024-09-17 21:03 | PM.IMHP ---
H&P: HPI History of Present Illness Date/Time: 09/17/24 21:03 Chief Complaint: Metabolic encephalopathy Narrative: Patient is a 73-year-old female with a complex medical history of COPD, DM, hypertension, end-stage renal disease on dialysis MWF, CAD, CHF, AFib on Eliquis/amiodarone, hypothyroidism, frequent UTI, previous CVA with residual right-sided deficits, and expressive aphasia. According to the ED notes, the patient had dialysis today, and after returning from the dialysis, the patient was weaker than usual. Later, she went to sleep, and her cousin tried to wake her up after 2 hours, but she was still tired and called EMS. Pertinent ED labs: WBC 8.2, hemoglobin 9, hematocrit 30, platelet 187, sodium 135, chloride 93, carbon dioxide 37, creatinine 2.6, GFR 18, glucose 231 UA shows WBC greater than 100, and nitrites negative. Head CT: Shows no acute intracranial findings. Ammonia, TSH, and vitamin B12 pending Positive for COVID Patient is admitted in the setting of metabolic encephalopathy possibly due to UTI, COVID, and possibly another CVA. The patient will be started on remdesivir and dexamethasone. Nephrology will be consulted due to dialysis. Unable to get any information from the patient. Called him her , Mr. Valero. The patient reported being weak today after returning from the dialysis. She was leaning on the counter for almost 2 hours but confirmed no fall. Patient baseline communication is yes or no. He reports that the patient had 2 CVAs on December 25, 2023, at the latest. The patient usually uses a walker for ambulation, and today she was able to use it, but has more difficulty using it. Brain CT: no significant findings. Will do MRI. Confirmed full code status with her . 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 Paroxysmal atrial fibrillation Bilateral primary osteoarthritis of knee Renal osteodystrophy DVT of lower extremity (deep venous thrombosis) Asthma-COPD overlap syndrome Left-sided cerebrovascular accident (CVA) (01/04/24) With residual left-sided visual neglect, profound expressive aphasia and right-sided hemiplegia ESRD on hemodialysis (02/17/22) Chronic anticoagulation Obstructive sleep apnea Hypothyroidism Insulin dependent type 2 diabetes mellitus Generalized anxiety disorder Chronic obstructive pulmonary disease Chronic diastolic (congestive) heart failure Coronary artery disease involving [place] heart without angina pectoris Depression GERD without esophagitis Peripheral polyneuropathy Surgical History Surgical History History of tracheostomy (04/24/22) With subsequent removal History of cataract extraction History of tonsillectomy History of cholecystectomy History of gastrostomy tube placement and removal Family History Family History Father Hypertension Family history of coronary artery disease Sibling Hypertension Family history of coronary artery disease Mother Cerebrovascular accident Other Asthma Depression Family history of Alzheimer's disease Family history of arthritis Family history of cardiovascular disease Family history of lymphoma Family history of obesity Family history of seizure disorder Social History Social History Social History: Surrogate medical decision maker: Anjum (spouse) or Gwen (daughter) Kyra. Code status: Full code. Smoking packs per day: 2 Smoking cigarettes per day: 40.0 Years smoked: 30 Smoking pack-years: 60.00 Smoking status: Former smoker Second hand tobacco smoke exposure: No Alcohol intake: never Alcohol use details: special occasions Substance use: former Substance use type: marijuana Last use: 01/05/23 Do You Feel Safe in your Home?: Yes Lack of Transportation: No Lack of Food: Never True Current Housing: I Have Housing Concerned About Future Housing: No Difficulty Paying Gas/Electric Bills: No Difficulty Paying for Meds: No Currently Unemployed: No Education: High School Diploma/GED Difficulty w/ Childcare or Family Care: No Living arrangements: with family Occupation/Education: retired Spiritual care concerns: No Meds Home Medications and Allergies Home Medications ?Medication ?Instructions ?Recorded ?Confirmed ?Type fluticasone propionate 50 1 spray intranasal DAILY 03/19/19 09/17/24 History mcg/actuation nasal spray,suspension albuterol sulfate 2.5 mg/3 mL 2.5 mg (3 mL) inhalation Q4-6H PRN 07/10/23 09/17/24 Rx (0.083 %) solution for nebulization shortness of breath or wheezing #90 mL Ventolin HFA 90 mcg/actuation See Rx Instructions .Route 05/20/24 09/17/24 Rx aerosol inhaler (albuterol sulfate) .COMPLEX #18 grams insulin aspart U-100 100 unit/mL See Rx Instructions .Route .COMPLEX 05/20/24 09/17/24 History (3 mL) subcutaneous pen (Novolog FlexPen U-100 Insulin aspart) metoprolol succinate 50 mg 50 mg PO QAM #90 tabs 05/20/24 09/17/24 Rx tablet,extended release 24 hr atorvastatin 20 mg tablet (Lipitor) 20 mg PO HS #90 tabs 07/04/24 09/17/24 Rx lorazepam 0.5 mg tablet (Ativan) 0.5 mg PO DAILY PRN anxiety 07/04/24 09/17/24 History montelukast 10 mg tablet 10 mg PO DAILY #90 tabs 07/04/24 09/17/24 Rx budesonide-formoterol HFA 160 2 puff inhalation Q12H #10.2 grams 07/17/24 09/17/24 Rx mcg-4.5 mcg/actuation aerosol inhaler trazodone 50 mg tablet 50 mg PO QHS #30 tabs 07/24/24 09/17/24 Rx apixaban 2.5 mg tablet (Eliquis) See Rx Instructions PO .COMPLEX 07/29/24 09/17/24 Rx #180 tabs amiodarone 200 mg tablet 200 mg PO QAM 09/02/24 09/17/24 History insulin glargine 100 unit/mL (3 18 unit subcut QPM 09/02/24 09/17/24 History mL) subcutaneous pen (Lantus Solostar U-100 Insulin) ropinirole 2 mg tablet 0.5 mg PO Q12H 09/02/24 09/17/24 History levothyroxine 175 mcg tablet 200 mcg PO DAILY 09/17/24 09/17/24 History tiotropium bromide 18 mcg capsule 1 cap inhalation DAILY@0800 09/17/24 09/17/24 History with inhalation device (Spiriva with HandiHaler) Allergies Allergy/AdvReac Type Severity Reaction Status Date / Time nickel Allergy Intermediate hives and Verified 09/17/24 19:25 itchy rash Sulfa (Sulfonamide Allergy Intermediate Urticaria Verified 05/14/25 19:25 Antibiotics) and hives Calcium Channel Blocking AdvReac Intermediate STATES Verified 09/17/24 19:25 Agents-Dih CANNOT TAKE SINCE SHE HAS ASTHMA diphenhydramine AdvReac Intermediate restless Verified 09/17/24 19:25 legs nifedipine AdvReac Intermediate palpitation Verified 09/17/24 19:25 s Febdzeu-ETI-QhQ Reductase AdvReac Intermediate muscle Verified 09/17/24 19:25 Inhibitor (Cdijgfy-Ymp-Hbo cramps Reductase Inhibitor) Vital Signs Vital Signs - 24 hr 09/17/24 18:07 Temperature 100.2 F H Pulse Rate 67 Respiratory Rate 15 Blood Pressure 131/41 L Pulse Oximetry 96 Oxygen Delivery Nasal Cannula Oxygen Flow Rate 2 H&P: Results Labs Labs: Short CBC 09/17/24 Range/Units 19:54 WBC 8.2 (4.5-10.0) K/mm3 Hgb 9.0 L (12.0-15.0) g/dL Hct 30.1 L (37.0-47.0) % Plt Count 197 (150-375) k/mm3 BMP 09/17/24 19:54 Sodium 135 L Potassium 3.8 Chloride 93 L Carbon Dioxide 37 H BUN 17 D Creatinine 2.60 H Glucose 231 H Calcium 8.0 L Liver Function 09/17/24 Range/Units 19:54 Total Bilirubin 0.7 (0.2-1.3) mg/dL AST 26 (14-36) U/L ALT 15 (6-35) U/L Alkaline Phosphatase 100 (38-126) U/L Albumin 3.4 L (3.5-5.1) g/dL Urine 09/17/24 Range/Units 18:58 Urine Color Yellow (Yellow) Urine Appearance Turbid H (Clear) Urine pH 8.5 (5.0-9.0) Ur Specific [place] 1.013 (1.001-1.035) Urine Protein 3+ H (Negative) mg/dL Urine Glucose (UA) 1+ H (Negative) mg/dL Assessment and Plan Assessment and plan (1) ARACELY (generalized anxiety disorder): Code(s): F41.1 - Generalized anxiety disorder Status: Acute (2) Hypertension: Qualifiers: Hypertension type: unspecified Qualified Code(s): I10 - Essential (primary) hypertension Code(s): I10 - Essential (primary) hypertension Status: Chronic (3) Coronary artery disease involving [place] heart without angina pectoris: Code(s): I25.10 - Atherosclerotic heart disease of [place] coronary artery without angina pectoris Status: Acute (4) Atrial fibrillation: Code(s): I48.91 - Unspecified atrial fibrillation Status: Chronic (5) Prolonged QT interval: Code(s): R94.31 - Abnormal electrocardiogram [ECG] [EKG] Status: Acute (6) Chronic anticoagulation: Code(s): Z79.01 - penitentiary (current) use of anticoagulants Status: Acute (7) Type 2 diabetes mellitus with hyperglycemia: Qualifiers: Diabetes mellitus half-way insulin use: with long term care phlebotomist use Qualified Code(s): E11.65 - Type 2 diabetes mellitus with hyperglycemia; Z79.4 - penitentiary (current) use of insulin Code(s): E11.65 - Type 2 diabetes mellitus with hyperglycemia Status: Chronic (8) ESRD on dialysis: Code(s): N18.6 - End stage renal disease; Z99.2 - Dependence on renal dialysis Status: Acute (9) UTI (urinary tract infection): Qualifiers: Hematuria presence: without hematuria Urinary tract infection type: acute cystitis Qualified Code(s): N30.00 - Acute cystitis without hematuria Code(s): N39.0 - Urinary tract infection, site not specified Status: Acute (10) COVID: Code(s): U07.1 - COVID-19 Status: Acute Plan COVID positive on admission Patient was started on remdesivir given new oxygen requirement, added Decadron Contact, droplet precautions DuoNeb scheduled q.6 Tylenol as needed for fever, body aches Incentive spirometer Metabolic encephalopathy Possibly due to infectious cause (COVID and UTI) If no improvement can consider MRA brain TSH, ammonia, B12 pending pending MRI pending PT/OT consult neuro checks q 4hrs CT head shows no abnormalities PT/OT evaluation Hold trazodone UTI Reviewed previous urine cultures 09/01/2024 positive for ESBL Reviewed UA Started on meropenem Pending urine culture P.o. antibiotics once culture results ESRD On dialysis [facility] Nephrology on board A.Fib Continue amiodarone, metoprolol and apixaban 2.5 mg p.o. b.i.d. Diabetes mellitus Continue home regimen Hypoglycemia protocol Hypothyroidism Continue levothyroxine 175 mcg DVT prophylaxis apixaban 2.5 mg p.o. b.i.d. Code status full code Hospitalist MIPS Advance Care Plan I have confirmed that the patient's Advanced Care Plan is present, code status is documented, or surrogate decision maker is listed in patient medical record.: Yes Medication Reconciliation I have utilized all available resources to obtain, update and review the patients current medications (includes all prescriptions, OTC, herbals, cannabis, and nutritional supplements).: Yes
--- NOTE | 2024-09-17 21:19 | PC.NURSE ---
Phlebotomy at bedside to draw blood cultures and labs needed.
[2024-09-17] MEDS: dexAMETHasone SOD PHOS INJ 10 MG/ML 1 ML VIAL 6 MG IV PUSH (21:51)
[2024-09-17 21:52] LABS: Ammonia < 9 umol/L (9-30)
[2024-09-17 22:08] VITALS: BMI 34.0
[2024-09-17 22:17] VITALS: PULSE 60
[2024-09-17 22:37] LABS: Folic Acid 6.7 ng/mL (2.76->20)
[2024-09-17 22:40] VITALS: BP 97/42; PULSE 55; RESP 16; TEMP 37.3; O2SAT 100
[2024-09-17] MEDS: REMDESIVIR 200 MG/NS 250 ML 200 MG/250 ML BAG 250 MG IVPB (22:52)
[2024-09-17 22:55] LABS: Glucose Point of Care 155 mg/dl (65-105)
[2024-09-17 23:00] VITALS: O2SAT 100
[2024-09-17] MEDS: INSULIN GLARGINE (*BKC) 100 UNITS/ML 18 UNITS SUB-Q (23:52)
[2024-09-17] MEDS: rOPINIRole HCL 0.5 MG TABLET PO (23:56)
[2024-09-17] MEDS: APIXABAN 2.5 MG TABLET PO (23:56)
[2024-09-17] MEDS: ATORVASTATIN 20 MG TABLET PO (23:56)
[2024-09-18] VITALS (13 sets, daily range): BP systolic 122–158; BP diastolic 40–54; PULSE 50–67; RESP 18; TEMP 36.6–37.1; O2SAT 96–100
[2024-09-18] MEDS: LEVOTHYROXINE SODIUM 75 MCG TABLET PO (05:57)
[2024-09-18] MEDS: LEVOTHYROXINE SODIUM 100 MCG TABLET PO (05:57)
[2024-09-18 06:04] LABS: Basophils Absolute Auto 0.1 K/mm3 (0.0-0.1); Basophils Percent Auto 0.7 % (0.2-1.2); Eosinophils Absolute Auto 0.2 K/mm3 (0-0.3); Eosinophils Percent Auto 3.4 % (0-4.4); Hematocrit 34.2 % (37.0-47.0); Hemoglobin 10.2 g/dL (12.0-15.0); Immature Granulocyte Absolute 0.04 K/mm3 (0.00-0.031); Immature Granulocyte Percent A 0.6 % (0-0.5); Lymphocytes Absolute Auto 1.29 K/mm3 (0.9-3.2); Lymphocytes Percent Auto 18.5 % (18.3-44.2); Mean Corpuscular HGB Conc 29.8 g/dl (32-36); Mean Corpuscular Hemoglobin 28.4 pg (26-34); Mean Corpuscular Volume 95.3 fl (80-100); Mean Platelet Volume 10.5 fl (7.4-10.4); Monocytes Percent Auto 14.3 % (2.6-8.5); Neutrophils Absolute Auto 4.4 K/mm3 (1.3-6.7); Neutrophils Percent Auto 62.5 % (45.5-73.1); Platelet Count Result 183 k/mm3 (150-375); Red Blood Count 3.59 M/mm3 (4.2-5.4); Red Cell Distribution Width 15.9 % (11.5-14.5)
[2024-09-18 06:14] LABS: Magnesium 1.9 mg/dL (1.6-2.3)
[2024-09-18 06:15] LABS: Alanine Aminotransferase 13 U/L (6-35); Albumin Level 3.6 g/dL (3.5-5.1); Alkaline Phosphatase 102 U/L (38-126); Anion Gap 6 mmol/L (4-12); Aspartate Amino Transferase 24 U/L (14-36); Bilirubin,Total 0.5 mg/dL (0.2-1.3); Blood Urea Nitrogen 20 mg/dL (7-17); Calcium 8.5 mg/dL (8.4-10.2); Carbon Dioxide 39 mmol/L (22-30); Chloride 94 mmol/L (98-107); Estimated CRCL calculation 13 ml/min; Estimated Glomerular Filt Rate 13; Glucose 113 mg/dL (65-110); Phosphorus 5.6 mg/dL (2.5-4.5); Potassium 4.1 mmol/L (3.4-5.0); Sodium 139 mmol/L (137-145)
[2024-09-18 07:06] LABS: Hypochromasia 1+; Platelet Estimate Adequate (Adequate); Schistocytes None Seen
--- NOTE | 2024-09-18 07:43 | PM.IMPN ---
Progress Note: A&P Assessment and Plan (1) Acute respiratory failure with hypoxia: Code(s): J96.01 - Acute respiratory failure with hypoxia Status: Acute Assessment and Plan: Per EMS, patient was noted to be hypoxic down to 88% on room air upon arrival. She does have home oxygen that she can use as needed. She was placed on 2 L nasal cannula with stabilization of oxygen saturations. - Oxygen supplementation: 2L NC, wean as tolerated to maintain spo2> 90 Per daughter patient has home oxygen PRN but she is noncompliant - Suspected cause: covid - Chest XR: Prominent markings in the lower lobes with possible early pneumonia. Underlying pulmonary edema is not excluded. (2) Metabolic encephalopathy: Code(s): G93.41 - Metabolic encephalopathy Status: Acute Assessment and Plan: Metabolic encephalopathy possibly due to UTI, COVID, and possibly another CVA. Per daughter patient is at baseline mental status The patient will be started on remdesivir and dexamethasone per covid protocol, see plan below The patient will be started on rocephin for UTI, see plan below Brain CT: no significant findings. MRI: No acute abnormality, extensive chronic left mca distribution infarct, and mild sinus disease Head/neck CTA 01/04/24 showing left mca with acute infarct Prior provider spoke with patients , Anjum. Patient baseline communication is yes or no. He reports that the patient had 2 CVAs on December 25, 2023, at the latest. The patient usually uses a walker for ambulation, and able to use day of admission but had more difficulty. (3) UTI (urinary tract infection): Qualifiers: Hematuria presence: without hematuria Urinary tract infection type: acute cystitis Qualified Code(s): N30.00 - Acute cystitis without hematuria Code(s): N39.0 - Urinary tract infection, site not specified Status: Acute Assessment and Plan: - UA: turbid appearance with 3+ protein, 1+ glucose, 3+ leukocytes, 6-10 RBC, > 100 WBC, no bacteria seen. Occasional squamous cells. - UC obtained on 09/17: pending - blood culture obtained on 09/17: pending - previous micro reviewed 09/01/24: proteus mirabilis with resistance to cipro and bactrim 12/25/23: ecoli pansensitive - started on rocephin on 09/18 (4) COVID: Code(s): U07.1 - COVID-19 Status: Acute Assessment and Plan: Place in COVID19 isolation precautions, cardiac monitoring, and continuous pulse ox Monitor serum electrolytes, CRP, Lactic acid, troponin, CBC, WBC, temperature curve and follow cultures Oxygen via NC; wean as tolerated. Keep spO2 greater than 90% Consider Consulting Pulmonary if the patient has an increased oxygen demand. Patient does not wear oxygen at baseline. Pt is a candidate for Remdesivir and Dexamethasone, continue treatment according to suggested guidelines. Remdesivir 200 mg IV x1, then 100 mg IV x4 days, dexamethasone 6 mg IV daily x 10 days, or until discharge (5) Atrial fibrillation: Code(s): I48.91 - Unspecified atrial fibrillation Status: Chronic Assessment and Plan: Chronic, continue home medications EKG showing sinus rhythm - amiodarone 200 mg daily - metoprolol 50 mg daily - eliquis 2.5 mg BID - monitor (6) ESRD on dialysis: Code(s): N18.6 - End stage renal disease; Z99.2 - Dependence on renal dialysis Status: Acute Assessment and Plan: Nephrology will be consulted due to dialysis MWF. 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 Code(s): E11.65 - Type 2 diabetes mellitus with hyperglycemia Status: Chronic Assessment and Plan: - hypoglycemia protocol - POC blood glucose ACHS - home medication - lantus 18 units, SSI - correct regimen ordered - continue home regimen - A1C 6.1 on 05/20/24 (8) Hypertension: Qualifiers: Hypertension type: unspecified Qualified Code(s): I10 - Essential (primary) hypertension Code(s): I10 - Essential (primary) hypertension Status: Chronic Assessment and Plan: Chronic, continue home medications - metoprolol 50 mg daily - blood pressures remain well controlled, continue to monitor Time Spent With Patient Time with patient: 25 - 35 minutes Subjective Date/time seen: 09/18/24 07:43 Interval history: 73-year-old female with a complex medical history of COPD, DM, hypertension, end-stage renal disease on dialysis MWF, CAD, CHF, AFib on Eliquis/amiodarone, hypothyroidism, previous CVA with residual right-sided deficits, and expressive aphasia. According to the ED notes, the patient had dialysis today, and after returning from the dialysis, the patient was weaker than usual. Patient is pleasant lying in bed. She is difficult to arouse but does open her eyes and attempt to talk. She has expressive aphasia so unable to obtain a ROS. Per daughter patient has returned to her baseline mental status. Review of Systems Review of Systems: Expressive aphasia. Per daughter at baseline mental status. ROS unobtainable: Yes unobtainable due to mental status Exam Narrative: AF HR 67 RR 18 SpO2 98 2LNC BP 122/54 General: Female in no acute respiratory distress who is nontoxic appearing, lying semi recumbent in bed. HEENT: Normocephalic. Atraumatic. Extraocular movement intact. Sclera clear and anicteric. No facial asymmetry. Chest: Lungs are clear to auscultation bilaterally. No wheezes or crackles. Upper congestion. CV: Heart was regular rate and rhythm. Abd: Abdomen was soft. Nontender. Nondistended. Positive bowel sounds. Ext: No clubbing, cyanosis, or edema. DP pulses bilaterally. Neuro: Patient is alert, per daughter at baseline. Expressive aphasia. Right sided deficits from prior CVA. Objective Data Vital Signs Vital Signs: Vital Signs - 24 hr 09/17/24 18:07 09/17/24 22:17 09/17/24 22:40 Temperature 100.2 F H 99.1 F Pulse Rate 67 60 55 L Respiratory Rate 15 16 Blood Pressure 131/41 L 97/42 L Pulse Oximetry 96 100 Oxygen Delivery Nasal Cannula Oxygen Flow Rate 2 09/17/24 23:00 09/18/24 00:00 09/18/24 04:00 Temperature Pulse Rate 58 L 56 L Respiratory Rate Blood Pressure Pulse Oximetry 100 Oxygen Delivery Nasal Cannula Oxygen Flow Rate 2 09/18/24 06:00 Temperature 98.7 F Pulse Rate 57 L Respiratory Rate 18 Blood Pressure 122/54 L Pulse Oximetry 100 Oxygen Delivery Oxygen Flow Rate Intake/Output Intake/Output: Intake & Output 09/15/24 09/16/24 09/17/24 09/18/24 23:59 23:59 23:59 23:59 Intake Total 300 0 Balance 300 0 Meds/Results Medications: Active Medications Generic Name Dose Route Start Last Admin Trade Name Freq PRN Reason Stop Dose Admin Acetaminophen 650 mg 09/17/24 21:13 Acetaminophen 325 Mg Tablet PO Q4H PRN Mild Pain (1-3) or Fever Albuterol 2.5 mg 09/17/24 23:01 Albuterol Sulfate Neb 2.5 Mg/3 Ml Inh INHALATION Q4-6H PRN shortness of breath or wheezing Amiodarone HCl 200 mg 09/18/24 08:00 Amiodarone Hcl 200 Mg Tablet PO DAILY@0800 [facility]INA Apixaban 2.5 mg 09/17/24 23:05 09/17/24 23:56 Apixaban 2.5 Mg Tablet PO 2.5 mg Q12HR [facility]INA Administration Atorvastatin Calcium 20 mg 09/17/24 23:10 09/17/24 23:56 Atorvastatin 20 Mg Tablet PO 20 mg HS ALINA Administration Dexamethasone Sodium Phosphate 6 mg 09/18/24 09:00 Dexamethasone Sod Phos Inj 10 Mg/Ml 1 Ml Vial IV PUSH 09/27/24 09:01 DAILY [facility] Dextrose 12.5 gm 09/17/24 21:13 Dextrose 50% 25 Gm/50 Ml Syringe IV PUSH PRN PRN Hypoglycemia Protocol Fluticasone Propionate 1 spray 09/18/24 09:00 Fluticasone Propionate 0.05% Na Spr 16 Gm Btl (*Bkc) NASAL DAILY [facility] Glucagon 1 mg 09/17/24 21:13 Glucagon For Inj 1 Mg Vial IM PRN PRN Hypoglycemia Protocol Glucose 15 gm 09/17/24 21:13 Glucose Oral Gel 15 Gm Of Glucse In 37.5 Gm Tube PO PRN PRN Hypoglycemia Protocol Ceftriaxone Sodium 1 gm in 50 mls @ 100 mls/hr 09/18/24 21:00 Rocephin 1 Gm/Ns 50 Ml IVPB Q24H [facility] Remdesivir 100 mg in 250 mls @ 250 mls/hr 09/18/24 22:00 IVPB 09/21/24 22:59 Q24H [facility] Dextrose 1,000 mls @ 100 mls/hr 09/17/24 21:13 Dextrose 5% 1,000 Ml IVPB PRN PRN Hypoglycemia Protocol Insulin Aspart 2 - 5 units 09/18/24 08:00 Insulin Aspart (*Bkc) 100 Units/Ml SUB-Q TIDWM [facility] Protocol Insulin Glargine 18 units 09/17/24 23:10 09/17/24 23:52 Insulin Glargine (*Bkc) 100 Units/Ml SUB-Q 18 units HS [facility] Administration Levothyroxine Sodium 100 mcg 09/18/24 06:30 09/18/24 05:57 Levothyroxine Sodium 100 Mcg Tablet PO 100 mcg DAILY@0630 [facility] Administration Levothyroxine Sodium 75 mcg 09/18/24 06:30 09/18/24 05:57 Levothyroxine Sodium 75 Mcg Tablet PO 75 mcg DAILY@0630 [facility] Administration Lorazepam 0.5 mg 09/17/24 23:01 Lorazepam (*Crx) 0.5 Mg Tablet PO DAILY PRN anxiety Metoprolol Succinate 50 mg 09/18/24 09:00 Metoprolol Succinate Ext Rel 50 Mg Tabcr PO QAM [facility] Montelukast Sodium 10 mg 09/18/24 09:00 Montelukast Sodium 10 Mg Tablet PO DAILY [facility] Ondansetron HCl 4 mg 09/17/24 21:13 Ondansetron Inj 4 Mg/2 Ml Vial IV PUSH Q4H PRN Nausea Ropinirole HCl 0.5 mg 09/17/24 23:10 09/17/24 23:56 Ropinirole Hcl 0.5 Mg Tablet PO 0.5 mg Q12HR [facility] Administration Fluticasone/Salmeterol 2 puff 09/18/24 08:00 Fluticasone/Salmeterol 115-21 Mcg Inhaler 1 Puff INHALATION Q12HRT [facility] Umeclidinium [place] 1 puff 09/18/24 08:00 Umeclidinium [place] 62.5 Mcg Ellipta INHALATION DAILYRT [facility] Radiology Results: ITS Impressions Head CT 09/17/24 18:54 IMPRESSION: No acute intracranial findings. Chest X-Ray 09/17/24 19:46 IMPRESSION: Prominent markings in the lower lobes with possible early pneumonia. Underlying pulmonary edema is not excluded. Clinical correlation and follow-up advised. Labs Labs: Laboratory Results - last 24 hr 09/17/24 09/17/24 09/17/24 18:21 18:58 19:54 WBC 8.2 RBC 3.14 L Hgb 9.0 L Hct 30.1 L MCV 95.9 MCH 28.7 MCHC 29.9 L RDW 16.0 H Plt Count 197 MPV 10.8 H Immature Gran % (Auto) 0.5 Neut % (Auto) 75.8 H Lymph % (Auto) 10.3 L Branch % (Auto) 10.5 H Eos % (Auto) 2.3 Baso % (Auto) 0.6 Lymph # (Auto) 0.84 L Branch # (Auto) 0.9 H Eos # (Auto) 0.2 Baso # (Auto) 0.1 Abs Immat Gran (auto) 0.04 H Absolute Neuts (auto) 6.2 Absolute Nucleated RBC 0.000 Band Neutrophils % 0 Nucleated RBC % 0.0 Platelet Estimate Adequate Hypochromasia 1+ Anisocytosis 2+ Schistocytes None seen PT 15.0 H INR 1.1 APTT 31.8 Sodium 135 L Potassium 3.8 Chloride 93 L Carbon Dioxide 37 H Anion Gap 5 BUN 17 D Creatinine 2.60 H Estim Creat Clear Calc 17 Estimated GFR 18 L Glucose 231 H POC Capillary Glucose 244 H Lactic Acid 1.6 Calcium 8.0 L Phosphorus Magnesium Total Bilirubin 0.7 AST 26 ALT 15 Alkaline Phosphatase 100 Ammonia Total Protein 7.0 Albumin 3.4 L Vitamin B12 353.0 Folate 6.7 TSH 2.820 TSH (Reflex) 3.010 Urine Color Yellow Urine Appearance Turbid H Urine pH 8.5 Ur Specific [place] 1.013 Urine Protein 3+ H Urine Glucose (UA) 1+ H Urine Ketones Negative Ur Blood (Man) Negative Urine Nitrate Negative Urine Bilirubin Negative Urine Urobilinogen 1.0 Leukocyte Esterase Rfl 3+ H Urine RBC 6-10 H Urine WBC >100 H Ur Squamous Epith Cells Occasional Urine Bacteria None seen Urine Casts 11-20 Hyaline Casts Present Influenza A (RT-PCR) Negative Influenza B (RT-PCR) Negative RSV (RT-PCR) Negative SARS-CoV-2 RNA (RT-PCR) Positive A 09/17/24 09/17/24 09/18/24 21:36 22:31 05:54 WBC 7.0 RBC 3.59 L Hgb 10.2 L Hct 34.2 L MCV 95.3 MCH 28.4 MCHC 29.8 L RDW 15.9 H Plt Count 183 MPV 10.5 H Immature Gran % (Auto) 0.6 H Neut % (Auto) 62.5 Lymph % (Auto) 18.5 Branch % (Auto) 14.3 H Eos % (Auto) 3.4 Baso % (Auto) 0.7 Lymph # (Auto) 1.29 Branch # (Auto) 1.0 H Eos # (Auto) 0.2 Baso # (Auto) 0.1 Abs Immat Gran (auto) 0.04 H Absolute Neuts (auto) 4.4 Absolute Nucleated RBC 0.000 Band Neutrophils % Not Reportable Nucleated RBC % 0.0 Platelet Estimate Adequate Hypochromasia 1+ Anisocytosis Schistocytes None seen PT INR APTT Sodium 139 Potassium 4.1 Chloride 94 L Carbon Dioxide 39 H Anion Gap 6 BUN 20 H Creatinine 3.47 H Estim Creat Clear Calc 13 Estimated GFR 13 L Glucose 113 H POC Capillary Glucose 155 H Lactic Acid Calcium 8.5 Phosphorus 5.6 H Magnesium 1.9 Total Bilirubin 0.5 AST 24 ALT 13 Alkaline Phosphatase 102 Ammonia < 9 L Total Protein 7.0 Albumin 3.6 Vitamin B12 Folate TSH TSH (Reflex) Urine Color Urine Appearance Urine pH Ur Specific [place] Urine Protein Urine Glucose (UA) Urine Ketones Ur Blood (Man) Urine Nitrate Urine Bilirubin Urine Urobilinogen Leukocyte Esterase Rfl Urine RBC Urine WBC Ur Squamous Epith Cells Urine Bacteria Urine Casts Hyaline Casts Influenza A (RT-PCR) Influenza B (RT-PCR) RSV (RT-PCR) SARS-CoV-2 RNA (RT-PCR) Quality VTE Prophylaxis VTE prophylaxis: pharmacologic ordered
[2024-09-18 08:09] LABS: Glucose Point of Care 110 mg/dl (65-105)
[2024-09-18] MEDS: FLUTICASONE/SALMETEROL 115-21 MCG INHALER 1 PUFF 2 PUFF INHALATION ×2 (08:16→20:20)
[2024-09-18] MEDS: UMECLIDINIUM BROMIDE 62.5 MCG ELLIPTA 1 PUFF INHALATION (08:16)
[2024-09-18 08:56] LABS: MRSA (PCR) NOT DETECTED (NOT DETECTE)
[2024-09-18] MEDS: rOPINIRole HCL 0.5 MG TABLET PO ×2 (09:08→22:39)
[2024-09-18] MEDS: MONTELUKAST SODIUM 10 MG TABLET PO (09:08)
[2024-09-18] MEDS: AMIODARONE HCL 200 MG TABLET PO (09:09)
[2024-09-18] MEDS: FLUTICASONE PROPIONATE 0.05% NA SPR 16 GM BTL (*BKC) 1 SPRAY NASAL (09:09)
[2024-09-18] MEDS: APIXABAN 2.5 MG TABLET PO ×2 (09:09→22:39)
[2024-09-18] MEDS: METOPROLOL SUCCINATE EXT REL 50 MG TABCR PO (09:09)
[2024-09-18] MEDS: dexAMETHasone SOD PHOS INJ 10 MG/ML 1 ML VIAL 6 MG IV PUSH (09:10)
[2024-09-18 10:25] LABS: Hepatitis B Surface Anti Res Negative; Hepatitis B Surface Antigen Negative (Negative)
[2024-09-18] MEDS: ACETAMINOPHEN 325 MG TABLET 650 MG PO (11:01)
[2024-09-18] MEDS: LORazepam (*CRX) 0.5 MG TABLET PO (11:01)
[2024-09-18 12:14] LABS: Glucose Point of Care 209 mg/dl (65-105)
[2024-09-18] MEDS: guaiFENesin 600 MG/DEXTROMETHORPHAN 30 MG SR TAB 12 HR 1 TAB PO ×2 (12:16→22:39)
[2024-09-18] MEDS: INSULIN ASPART (*BKC) 100 UNITS/ML SUB-Q ×2 (12:16→17:53)
--- NOTE | 2024-09-18 12:34 | P.CONNP_ITS ---
Assessment and Plan Assessment and plan (1) End stage renal disease: Code(s): N18.6 - End stage renal disease Status: Acute Assessment and Plan: * HD tomorrow * continue M/W/F outpatient dialysis schedule * follow electrolytes, volume status, and clearance (2) Acute respiratory failure with hypoxia: Code(s): J96.01 - Acute respiratory failure with hypoxia Status: Acute Assessment and Plan: * presumably due to COVID infection * however, other risk factors noted: * possible pneumonia * COPD * history fluid overload/CHF * reactive airway disease/asthma * supplemental oxygen - wean as tolerated * on steroids * follow respiratory status (3) Metabolic encephalopathy: Code(s): G93.41 - Metabolic encephalopathy Status: Acute Assessment and Plan: * clinical improvement at this time * possible etiologies: * infection (UTI +/- pneumonia) * hypoxia * COVID * new CVA(?) * evaluation to date noted: * CT of head : no significant findings. * brain MRI: No acute abnormality, extensive chronic left mca distribution infarct, and mild sinus disease * TSH okay * ammonia normal * B12 and folic acid normal * continue supportive therapy (4) COVID-19 virus infection: Code(s): U07.1 - COVID-19 Status: Acute Assessment and Plan: * as noted by testing in the ER * on remdesivir and decadron * wean oxygen (although has home O2 to be used on an PRN basis) * follow respiratory status closely (5) UTI (urinary tract infection): Code(s): N39.0 - Urinary tract infection, site not specified Status: Resolved Assessment and Plan: * admission UA highly suggestive * follow culture data * on antibiotics (6) Anemia: Code(s): D64.9 - Anemia, unspecified Status: Chronic Assessment and Plan: * due to ESRD * RADHA/Epogen with HD * follow trend of H/H (7) Hypertension: Qualifiers: Hypertension type: unspecified Qualified Code(s): I10 - Essential (primary) hypertension Code(s): I10 - Essential (primary) hypertension Status: Chronic Assessment and Plan: * reasonable control at this time * follow trend of hemodynamics (8) Type 2 diabetes mellitus with hyperglycemia: Qualifiers: Diabetes mellitus group home insulin use: with continuous churn buttermaker use Qualified Code(s): E11.65 - Type 2 diabetes mellitus with hyperglycemia; Z79.4 - lobsterman (current) use of insulin Code(s): E11.65 - Type 2 diabetes mellitus with hyperglycemia Status: Chronic Assessment and Plan: * follow accu-cheks * glycemic control per hospitalists. I will continue follow the patient with you while she remains hospitalized and make further recommendations as deemed necessary. Thank you for allowing me to participate in care this patient. L History of Present Illness Reason for Consult Consult date: 09/18/24 Reason for consult: end stage renal disease Chief Complaint Chief complaint: AMS, UTI, COVID19 History of Present Illness Narrative: Most of the information I have obtained is from review of the electronic medical record as well as discussion with the physician/nurses involved in the patient's care as well as her daughter at bedside as the patient has expressive aphasia which limits what history can be obtained from her. The patient is a 73-year-old female with an extensive past medical history as outlined below who presented to [facility] Emergency Room due to generalized weakness and altered mental status. The patient attended her regularly scheduled dialysis treatment yesterday with no reported issues or problems during her dialysis session. Following her dialysis treatment, she returned home and according to the , she seemed to be a bit weaker than usual at that time. She is usually able to use her walker at baseline without any issues and problems and she was able to use it however she had some difficulty than normal. Furthermore, by the time her was able to get her into the house, she was unable/unwilling to move in general. She apparently stayed standing and was leaning against a counter for almost 2 hours which then was complicated by the fact that her was having difficulty getting her to respond. Given this change in her normal clinical status, he called EMS for assistance. According to EMS notation, the patient was apparently hypoxic at 88% on room air on their arrival. She was placed on 2 L of supplemental oxygen by nasal cannula with improvement in her oxygen saturations. It should be noted that the patient does have home oxygen at therapy that is used on an as-needed basis. She was subsequently transported to the emergency room for further assessment. Workup and evaluation emergency room demonstrated the patient to be hemodynamically stable and in no acute distress. Routine blood test demonstrated white blood count of 8.2, hemoglobin 9.0, platelet count of 187, and a chemistry panel that was consistent with her known history of end-stage renal disease without any critical electrolyte abnormalities. Her UA was significant for turbid appearance, greater than 100 white blood cells, 3+ leukocytes esterase, 3+ protein, and 1+ glucose. CT scan of the head demonstrated no acute intracranial findings. Viral testing for influenza and RSV were negative but she was found to be positive for COVID. Given her constellation symptoms in conjunction with her laboratory/imaging findings, she was initiated on antibiotic therapy after appropriate cultures were obtained for her suspected urinary tract infection along with steroids and re remdesivir for her COVID infection. She was subsequently admitted to the hospital for further evaluation therapy. Since her admission, her mental status has significantly improved and according to her daughter at bedside, appears to be back to baseline. She otherwise had no other acute issues or problems overnight or earlier this morning. Renal consultation was requested due to her end-stage renal disease. The patient normally dialyzes on a Sunday, Sunday, Sunday schedule at [facility] under the care of Dr. Jame Dumont. From a dialysis perspective, she has been doing reasonably well and compliant with her treatments. In the past, she has had issues and problems with significant fluid gains in between her dialysis treatments but this appears to have stabilized in the last year following her recent CVAs.. Her last dialysis treatment was yesterday at her outpatient dialysis clinic and she is due for dialysis tomorrow. Currently, at the time my visit, she is resting comfortably in no apparent distress. Review of Systems 2 Review of Systems: As per HPI. 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 Paroxysmal atrial fibrillation Bilateral primary osteoarthritis of knee Renal osteodystrophy DVT of lower extremity (deep venous thrombosis) Asthma-COPD overlap syndrome Left-sided cerebrovascular accident (CVA) (01/04/24) With residual left-sided visual neglect, profound expressive aphasia and right-sided hemiplegia ESRD on hemodialysis (02/17/22) Chronic anticoagulation Obstructive sleep apnea Hypothyroidism Insulin dependent type 2 diabetes mellitus Generalized anxiety disorder Chronic obstructive pulmonary disease Chronic diastolic (congestive) heart failure Coronary artery disease involving tulalip heart without angina pectoris Depression GERD without esophagitis Peripheral polyneuropathy Surgical History Surgical History History of tracheostomy (04/24/22) With subsequent removal History of cataract extraction History of tonsillectomy History of cholecystectomy History of gastrostomy tube placement and removal Family History Family History Father Hypertension Family history of coronary artery disease Sibling Hypertension Family history of coronary artery disease Mother Cerebrovascular accident Other Asthma Depression Family history of Alzheimer's disease Family history of arthritis Family history of cardiovascular disease Family history of lymphoma Family history of obesity Family history of seizure disorder Social History Social History Social History: Surrogate medical decision maker: Anjum (spouse) or Gwen (daughter) Kyra. Code status: Full code. Smoking packs per day: 2 Smoking cigarettes per day: 40.0 Years smoked: 30 Smoking pack-years: 60.00 Smoking status: Former smoker Second hand tobacco smoke exposure: No Alcohol intake: never Alcohol use details: special occasions Substance use: former Substance use type: marijuana Last use: 01/05/23 Do You Feel Safe in your Home?: Yes Lack of Transportation: No Lack of Food: Never True Current Housing: I Have Housing Concerned About Future Housing: No Difficulty Paying Gas/Electric Bills: No Difficulty Paying for Meds: No Currently Unemployed: No Education: High School Diploma/GED Difficulty w/ Childcare or Family Care: No Living arrangements: with family Occupation/Education: retired Spiritual care concerns: No Meds Home Medications and Allergies Home Medications ?Medication ?Instructions ?Recorded ?Confirmed ?Type fluticasone propionate 50 1 spray intranasal DAILY 03/19/19 09/17/24 History mcg/actuation nasal spray,suspension albuterol sulfate 2.5 mg/3 mL 2.5 mg (3 mL) inhalation Q4-6H PRN 07/10/23 09/17/24 Rx (0.083 %) solution for nebulization shortness of breath or wheezing #90 mL Ventolin HFA 90 mcg/actuation See Rx Instructions .Route 05/20/24 09/17/24 Rx aerosol inhaler (albuterol sulfate) .COMPLEX #18 grams insulin aspart U-100 100 unit/mL See Rx Instructions .Route .COMPLEX 05/20/24 09/17/24 History (3 mL) subcutaneous pen (Novolog FlexPen U-100 Insulin aspart) metoprolol succinate 50 mg 50 mg PO QAM #90 tabs 05/20/24 09/17/24 Rx tablet,extended release 24 hr atorvastatin 20 mg tablet (Lipitor) 20 mg PO HS #90 tabs 07/04/24 09/17/24 Rx lorazepam 0.5 mg tablet (Ativan) 0.5 mg PO DAILY PRN anxiety 07/04/24 09/17/24 History montelukast 10 mg tablet 10 mg PO DAILY #90 tabs 07/04/24 09/17/24 Rx budesonide-formoterol HFA 160 2 puff inhalation Q12H #10.2 grams 07/17/24 09/17/24 Rx mcg-4.5 mcg/actuation aerosol inhaler trazodone 50 mg tablet 50 mg PO QHS #30 tabs 07/24/24 09/17/24 Rx apixaban 2.5 mg tablet (Eliquis) See Rx Instructions PO .COMPLEX 07/29/24 09/17/24 Rx #180 tabs amiodarone 200 mg tablet 200 mg PO QAM 09/02/24 09/17/24 History insulin glargine 100 unit/mL (3 18 unit subcut QPM 09/02/24 09/17/24 History mL) subcutaneous pen (Lantus Solostar U-100 Insulin) ropinirole 2 mg tablet 0.5 mg PO Q12H 09/02/24 09/17/24 History levothyroxine 175 mcg tablet 200 mcg PO DAILY 09/17/24 09/17/24 History tiotropium bromide 18 mcg capsule 1 cap inhalation DAILY@0800 09/17/24 09/17/24 History with inhalation device (Spiriva with HandiHaler) hydralazine 25 mg tablet 25 mg PO TID 09/18/24 09/18/24 History isosorbide mononitrate 30 mg 30 mg PO DAILY 09/18/24 09/18/24 History tablet,extended release 24 hr Allergies Allergy/AdvReac Type Severity Reaction Status Date / Time nickel Allergy Intermediate hives and Verified 09/17/24 19:25 itchy rash Sulfa (Sulfonamide Allergy Intermediate Urticaria Verified 09/17/24 19:25 Antibiotics) and hives Calcium Channel Blocking AdvReac Intermediate STATES Verified 09/17/24 19:25 Agents-Dih CANNOT TAKE SINCE SHE HAS ASTHMA diphenhydramine AdvReac Intermediate restless Verified 09/17/24 19:25 legs nifedipine AdvReac Intermediate palpitation Verified 09/17/24 19:25 s Svknkdr-[id number]-HyH Reductase AdvReac Intermediate muscle Verified 09/17/24 19:25 Inhibitor (Znbznik-Jyl-Igm cramps Reductase Inhibitor) Vital Signs Vital Signs Temp Pulse Resp BP Pulse Ox O2 Del Method O2 Flow Rate 09/18/24 12:00 65 09/18/24 09:09 67 09/18/24 09:09 67 09/18/24 09:00 64 09/18/24 09:00 98 Nasal Cannula 2 09/18/24 08:16 98 Nasal Cannula 2 09/18/24 06:00 98.7 F 57 L 18 122/54 L 100 09/18/24 04:00 56 L 09/18/24 00:00 58 L 09/17/24 23:00 100 Nasal Cannula 2 09/17/24 22:40 99.1 F 55 L 16 97/42 L 100 09/17/24 22:17 60 09/17/24 18:07 100.2 F H 67 15 131/41 L 96 Nasal Cannula 2 Exam 2 Narrative: GENERAL APPEARANCE: elderly female resting comfortably in no acute distress HEENT: normocephalic, atraumatic, normal conjunctiva and sclera, nares patient NECK: no lymphadenopathy, thyromegaly, or JVD MOUTH: normal lips, teeth, and gums CARDIOVASCULAR: RRR, normal S1 and S2, no rub RESPIRATORY: clear anteriorly; decreased at bases ABDOMEN: soft, nontender, nondistended, positive bowel sounds present EXTREMITIES: no evidence of cyanosis, clubbing, or edema NEUROLOGICAL: alert and oriented x 1; expressive aphasia; noted right sided weakness Results Lab Results 09/18/24 05:54 09/18/24 05:54 Lab results: Most recent lab results Calcium 8.5 mg/dL (8.4-10.2) 09/18/24 05:54 Phosphorus 5.6 mg/dL (2.5-4.5) H 09/18/24 05:54 Magnesium 1.9 mg/dL (1.6-2.3) 09/18/24 05:54
[2024-09-18 17:28] LABS: Glucose Point of Care 375 mg/dl (65-105)
[2024-09-18 21:24] LABS: Glucose Point of Care 457 mg/dl (65-105)
[2024-09-18] MEDS: INSULIN GLARGINE (*BKC) 100 UNITS/ML 18 UNITS SUB-Q (22:38)
[2024-09-18] MEDS: ATORVASTATIN 20 MG TABLET PO (22:39)
[2024-09-18] MEDS: INSULIN HUMAN REGULAR (*BKC) 100 UNITS/ML 14 UNITS SUB-Q (22:55)
[2024-09-18] MEDS: REMDESIVIR 100 MG/NS 250 ML 100 MG/250 ML BAG 250 MG IVPB (23:14)
[2024-09-19] VITALS (32 sets, daily range): BP systolic 120–172; BP diastolic 43–78; PULSE 49–64; RESP 16–20; TEMP 36.5–37; O2SAT 91–100
[2024-09-19] MEDS: INSULIN ASPART (*BKC) 100 UNITS/ML 6 UNITS SUB-Q ×2 (02:06→20:37)
[2024-09-19 02:49] LABS: Glucose Point of Care 355 mg/dl (65-105)
[2024-09-19 05:28] LABS: Hematocrit 30.5 % (37.0-47.0); Hemoglobin 8.9 g/dL (12.0-15.0); Mean Corpuscular HGB Conc 29.2 g/dl (32-36); Mean Corpuscular Hemoglobin 28.2 pg (26-34); Mean Corpuscular Volume 96.5 fl (80-100); Mean Platelet Volume 11.3 fl (7.4-10.4); Platelet Count Result 167 k/mm3 (150-375); Red Blood Count 3.16 M/mm3 (4.2-5.4); Red Cell Distribution Width 15.3 % (11.5-14.5); White Blood Count 7.5 K/mm3 (4.5-10.0)
[2024-09-19 05:45] LABS: Magnesium 1.8 mg/dL (1.6-2.3); Phosphorus 6.3 mg/dL (2.5-4.5)
[2024-09-19 05:46] LABS: Alanine Aminotransferase 16 U/L (6-35); Albumin Level 3.4 g/dL (3.5-5.1); Alkaline Phosphatase 92 U/L (38-126); Anion Gap 12 mmol/L (4-12); Aspartate Amino Transferase 23 U/L (14-36); Bilirubin,Total 0.4 mg/dL (0.2-1.3); Blood Urea Nitrogen 41 mg/dL (7-17); Carbon Dioxide 30 mmol/L (22-30); Chloride 93 mmol/L (98-107); Estimated CRCL calculation 10 ml/min; Estimated Glomerular Filt Rate 9; Glucose 165 mg/dL (65-110); Potassium 3.8 mmol/L (3.4-5.0); Sodium 135 mmol/L (137-145)
[2024-09-19] MEDS: LEVOTHYROXINE SODIUM 100 MCG TABLET PO (05:51)
[2024-09-19] MEDS: LEVOTHYROXINE SODIUM 75 MCG TABLET PO (05:51)
--- NOTE | 2024-09-19 07:11 | PC.NURSE ---
Patient to dialysis per bed, reports given to Gopal ROJAS
--- NOTE | 2024-09-19 08:04 | PM.IMPN ---
Progress Note: A&P Assessment and Plan (1) Acute respiratory failure with hypoxia: Code(s): J96.01 - Acute respiratory failure with hypoxia Status: Acute Assessment and Plan: Per EMS, patient was noted to be hypoxic down to 88% on room air upon arrival. She does have home oxygen that she can use as needed. She was placed on 2 L nasal cannula with stabilization of oxygen saturations. - Oxygen supplementation: 2L NC, wean as tolerated to maintain spo2> 90 Per daughter patient has home oxygen PRN but she is noncompliant Patient will require home o2 eval at time of discharge Discussed patient with Dr. Salgado and will obtain apnea link overnight to further assess oxygen requirement - Suspected cause: covid - Chest XR: Prominent markings in the lower lobes with possible early pneumonia. Underlying pulmonary edema is not excluded. (2) Metabolic encephalopathy: Code(s): G93.41 - Metabolic encephalopathy Status: Acute Assessment and Plan: Metabolic encephalopathy possibly due to UTI, COVID, and possibly another CVA. Per daughter patient is at baseline mental status The patient will be started on remdesivir and dexamethasone per covid protocol, see plan below The patient will be started on rocephin for UTI, see plan below Brain CT: no significant findings. MRI: No acute abnormality, extensive chronic left mca distribution infarct, and mild sinus disease Head/neck CTA 01/04/24 showing left mca with acute infarct Prior provider spoke with patients , Anjum. Patient baseline communication is yes or no. He reports that the patient had 2 CVAs on December 25, 2023, at the latest. The patient usually uses a walker for ambulation, and able to use day of admission but had more difficulty. (3) UTI (urinary tract infection): Qualifiers: Hematuria presence: without hematuria Urinary tract infection type: acute cystitis Qualified Code(s): N30.00 - Acute cystitis without hematuria Code(s): N39.0 - Urinary tract infection, site not specified Status: Acute Assessment and Plan: - UA: turbid appearance with 3+ protein, 1+ glucose, 3+ leukocytes, 6-10 RBC, > 100 WBC, no bacteria seen. Occasional squamous cells. - UC obtained on 09/17: negative - blood culture obtained on 09/17: NGTD - previous micro reviewed 09/01/24: proteus mirabilis with resistance to cipro and bactrim 12/25/23: ecoli pansensitive - started on rocephin on 09/18 (4) COVID: Code(s): U07.1 - COVID-19 Status: Acute Assessment and Plan: Place in COVID19 isolation precautions, cardiac monitoring, and continuous pulse ox Monitor serum electrolytes, CRP, Lactic acid, troponin, CBC, WBC, temperature curve and follow cultures Oxygen via NC; wean as tolerated. Keep spO2 greater than 90% Consider Consulting Pulmonary if the patient has an increased oxygen demand. Patient does not wear oxygen at baseline. Pt is a candidate for Remdesivir and Dexamethasone, continue treatment according to suggested guidelines. Remdesivir 200 mg IV x1, then 100 mg IV x4 days, dexamethasone 6 mg IV daily x 10 days, or until discharge (5) Atrial fibrillation: Code(s): I48.91 - Unspecified atrial fibrillation Status: Chronic Assessment and Plan: Chronic, continue home medications EKG showing sinus rhythm - amiodarone 200 mg daily - metoprolol 50 mg daily - eliquis 2.5 mg BID - monitor (6) ESRD on dialysis: Code(s): N18.6 - End stage renal disease; Z99.2 - Dependence on renal dialysis Status: Acute Assessment and Plan: Nephrology will be consulted due to dialysis MWF. 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 Qualified Code(s): E11.65 - Type 2 diabetes mellitus with hyperglycemia; Z79.4 - retirement (current) use of insulin Code(s): E11.65 - Type 2 diabetes mellitus with hyperglycemia Status: Chronic Assessment and Plan: - hypoglycemia protocol - POC blood glucose ACHS - home medication - lantus 18 units, SSI - correct regimen ordered - continue home regimen - A1C 6.1 on 05/20/24 (8) Hypertension: Qualifiers: Hypertension type: unspecified Qualified Code(s): I10 - Essential (primary) hypertension Code(s): I10 - Essential (primary) hypertension Status: Chronic Assessment and Plan: Chronic, continue home medications - metoprolol 50 mg daily - imdur 30 mg daily - blood pressures remain well controlled, continue to monitor Time Spent With Patient Time with patient: 25 - 35 minutes Subjective Date/time seen: 09/19/24 08:04 Interval history: 73-year-old female with a complex medical history of COPD, DM, hypertension, end-stage renal disease on dialysis MWF, CAD, CHF, AFib on Eliquis/amiodarone, hypothyroidism, previous CVA with residual right-sided deficits, and expressive aphasia. According to the ED notes, the patient had dialysis today, and after returning from the dialysis, the patient was weaker than usual. Patient is pleasant lying comfortably in bed. When asked if she is feeling better she nods her head yes and shakes her head no with all other complaints. She remains on 2 L nasal cannula with saturations in the lower 90s. Again her daughters she has oxygen as needed at home. Discussed patient with Dr. Salgado's who saw her in June who recommends obtaining an ApneaLink overnight and a home O2 evaluation when closer to discharge. Review of Systems Review of Systems: Expressive aphasia. Per daughter at baseline mental status. ROS unobtainable: Yes unobtainable due to mental status Exam Narrative: AF HR 62 RR 16 SpO2 92 (2L NC) BP 158/60 General: Female in no acute respiratory distress who is nontoxic appearing, lying semi recumbent in bed. HEENT: Normocephalic. Atraumatic. Extraocular movement intact. Sclera clear and anicteric. No facial asymmetry. Chest: Lungs are clear to auscultation bilaterally. No wheezes or crackles. Upper congestion. CV: Heart was regular rate and rhythm. Abd: Abdomen was soft. Nontender. Nondistended. Positive bowel sounds. Ext: No clubbing, cyanosis, or edema. DP pulses bilaterally. Neuro: Patient is alert and following commands, per daughter at baseline. Expressive aphasia. Right sided deficits from prior CVA. Objective Data Vital Signs Vital Signs: Vital Signs - 24 hr 09/18/24 08:16 09/18/24 09:00 09/18/24 09:00 Temperature Pulse Rate 64 Respiratory Rate Blood Pressure Pulse Oximetry 98 98 Oxygen Delivery Nasal Cannula Nasal Cannula Oxygen Flow Rate 2 2 09/18/24 09:09 09/18/24 09:09 09/18/24 12:00 Temperature Pulse Rate 67 67 65 Respiratory Rate Blood Pressure Pulse Oximetry Oxygen Delivery Oxygen Flow Rate 09/18/24 13:26 09/18/24 14:00 09/18/24 16:00 Temperature 98.2 F Pulse Rate 54 L 50 L Respiratory Rate Blood Pressure 135/40 L Pulse Oximetry 96 Oxygen Delivery Nasal Cannula Oxygen Flow Rate 2 09/18/24 19:49 09/18/24 20:00 09/18/24 20:20 Temperature 97.8 F Pulse Rate 51 L 50 L 51 L Respiratory Rate 18 18 Blood Pressure 158/41 H Pulse Oximetry 100 100 Oxygen Delivery Nasal Cannula Oxygen Flow Rate 2 09/18/24 20:20 09/18/24 22:30 09/19/24 00:00 Temperature Pulse Rate 51 L 51 L Respiratory Rate 18 Blood Pressure Pulse Oximetry 100 Oxygen Delivery Nasal Cannula Oxygen Flow Rate 2 09/19/24 04:00 09/19/24 04:22 09/19/24 07:10 Temperature 97.7 F 97.9 F Pulse Rate 55 L 56 L 54 L Respiratory Rate 20 16 Blood Pressure 128/78 120/68 Pulse Oximetry 99 100 Oxygen Delivery Oxygen Flow Rate 09/19/24 07:10 09/19/24 07:23 09/19/24 07:30 Temperature Pulse Rate 53 L 52 L Respiratory Rate Blood Pressure 151/65 H 146/64 H Pulse Oximetry Oxygen Delivery Oxygen Flow Rate 2 09/19/24 07:45 09/19/24 08:00 Temperature Pulse Rate 52 L 56 L Respiratory Rate Blood Pressure 166/64 H 168/48 H Pulse Oximetry Oxygen Delivery Oxygen Flow Rate Intake/Output Intake/Output: Intake & Output 09/16/24 09/17/24 09/18/24 09/19/24 23:59 23:59 23:59 23:59 Intake Total 300 1250 640 Balance 300 1250 640 Meds/Results Medications: Active Medications Generic Name Dose Route Start Last Admin Trade Name Freq PRN Reason Stop Dose Admin Acetaminophen 650 mg 09/17/24 21:13 09/18/24 11:01 Acetaminophen 325 Mg Tablet PO 650 mg Q4H PRN Administration Mild Pain (1-3) or Fever Albuterol 2.5 mg 09/17/24 23:01 Albuterol Sulfate Neb 2.5 Mg/3 Ml Inh INHALATION Q4-6H PRN shortness of breath or wheezing Amiodarone HCl 200 mg 09/18/24 08:00 09/18/24 09:09 Amiodarone Hcl 200 Mg Tablet PO 200 mg DAILY@0800 ALINA Administration Apixaban 2.5 mg 09/17/24 23:05 09/18/24 22:39 Apixaban 2.5 Mg Tablet PO 2.5 mg Q12HR ALINA Administration Atorvastatin Calcium 20 mg 09/17/24 23:10 09/18/24 22:39 Atorvastatin 20 Mg Tablet PO 20 mg HS ALINA Administration Dexamethasone Sodium Phosphate 6 mg 09/18/24 09:00 09/18/24 09:10 Dexamethasone Sod Phos Inj 10 Mg/Ml 1 Ml Vial IV PUSH 09/27/24 09:01 6 mg DAILY ALINA Administration Dextrose 12.5 gm 09/17/24 21:13 Dextrose 50% 25 Gm/50 Ml Syringe IV PUSH PRN PRN Hypoglycemia Protocol Epoetin Jorge Alberto-epbx 10,000 units 09/19/24 18:48 Epoetin Jorge Alberto-Epbx 10,000 Units/Ml Vial IV PUSH 09/19/24 18:49 ONCE ONE Fluticasone Propionate 1 spray 09/18/24 09:00 09/18/24 09:09 Fluticasone Propionate 0.05% Na Spr 16 Gm Btl (*Bkc) NASAL 1 spray DAILY ALINA Administration Glucagon 1 mg 09/17/24 21:13 Glucagon For Inj 1 Mg Vial IM PRN PRN Hypoglycemia Protocol Glucose 15 gm 09/17/24 21:13 Glucose Oral Gel 15 Gm Of Glucse In 37.5 Gm Tube PO PRN PRN Hypoglycemia Protocol Guaifenesin/Dextromethorphan 1 tab 09/18/24 11:20 09/18/24 22:39 Guaifenesin 600 Mg/Dextromethorphan 30 Mg Sr Tab 12 Hr PO 1 tab Q12HR ALINA Administration Ceftriaxone Sodium 1 gm in 50 mls @ 100 mls/hr 09/18/24 21:00 09/18/24 23:08 Rocephin 1 Gm/Ns 50 Ml IVPB Infused Q24H ALINA Infusion Remdesivir 100 mg in 250 mls @ 250 mls/hr 09/18/24 22:00 09/19/24 00:14 IVPB 09/21/24 22:59 Infused Q24H ALINA Infusion Dextrose 1,000 mls @ 100 mls/hr 09/17/24 21:13 Dextrose 5% 1,000 Ml IVPB PRN PRN Hypoglycemia Protocol Albumin Human 50 mls @ 999 mls/hr 09/19/24 06:48 Albutein IVPB 10/19/24 06:47 Q10M PRN HYPOTENSION Insulin Aspart 2 - 5 units 09/18/24 08:00 09/18/24 17:53 Insulin Aspart (*Bkc) 100 Units/Ml SUB-Q 5 units TIDWM ALINA Administration Protocol Insulin Aspart 1 - 2 units 09/18/24 21:00 09/18/24 22:39 Insulin Aspart (*Bkc) 100 Units/Ml SUB-Q Not Given HS [facility] Protocol Insulin Glargine 18 units 09/17/24 23:10 09/18/24 22:38 Insulin Glargine (*Bkc) 100 Units/Ml SUB-Q 18 units HS ALINA Administration Levothyroxine Sodium 100 mcg 09/18/24 06:30 09/19/24 05:51 Levothyroxine Sodium 100 Mcg Tablet PO 100 mcg DAILY@0630 ALINA Administration Levothyroxine Sodium 75 mcg 09/18/24 06:30 09/19/24 05:51 Levothyroxine Sodium 75 Mcg Tablet PO 75 mcg DAILY@0630 ALINA Administration Lorazepam 0.5 mg 09/17/24 23:01 09/18/24 11:01 Lorazepam (*Crx) 0.5 Mg Tablet PO 0.5 mg DAILY PRN Administration anxiety Metoprolol Succinate 50 mg 09/18/24 09:00 09/18/24 09:09 Metoprolol Succinate Ext Rel 50 Mg Tabcr PO 50 mg QAM ALINA Administration Montelukast Sodium 10 mg 09/18/24 09:00 09/18/24 09:08 Montelukast Sodium 10 Mg Tablet PO 10 mg DAILY ALINA Administration Ondansetron HCl 4 mg 09/17/24 21:13 Ondansetron Inj 4 Mg/2 Ml Vial IV PUSH Q4H PRN Nausea Ropinirole HCl 0.5 mg 09/17/24 23:10 09/18/24 22:39 Ropinirole Hcl 0.5 Mg Tablet PO 0.5 mg Q12HR ALINA Administration Fluticasone/Salmeterol 2 puff 09/18/24 08:00 09/18/24 20:20 Fluticasone/Salmeterol 115-21 Mcg Inhaler 1 Puff INHALATION 2 puff Q12HRT ALINA Administration Umeclidinium [place] 1 puff 09/18/24 08:00 09/18/24 08:16 Umeclidinium [place] 62.5 Mcg Ellipta INHALATION 1 puff DAILYRT ALINA Administration Radiology Results: ITS Impressions Head CT 09/17/24 18:54 IMPRESSION: No acute intracranial findings. Chest X-Ray 09/17/24 19:46 IMPRESSION: Prominent markings in the lower lobes with possible early pneumonia. Underlying pulmonary edema is not excluded. Clinical correlation and follow-up advised. Brain MRI 09/18/24 12:19 IMPRESSION: No acute abnormality. Extensive chronic left MCA distribution infarct, new from prior exam. Mild sinus disease, as above. Labs Labs: Laboratory Results - last 24 hr 09/18/24 09/18/24 09/18/24 05:54 07:36 08:05 WBC RBC Hgb Hct MCV MCH MCHC RDW Plt Count MPV Sodium Potassium Chloride Carbon Dioxide Anion Gap BUN Creatinine Estim Creat Clear Calc Estimated GFR Glucose POC Capillary Glucose 110 H Calcium Phosphorus Magnesium Total Bilirubin AST ALT Alkaline Phosphatase Total Protein Albumin Nasal MRSA (PCR) Not detected Hep Bs Antigen Negative Hep Bs Antibody Negative 09/18/24 09/18/24 09/18/24 12:09 17:09 19:52 WBC RBC Hgb Hct MCV MCH MCHC RDW Plt Count MPV Sodium Potassium Chloride Carbon Dioxide Anion Gap BUN Creatinine Estim Creat Clear Calc Estimated GFR Glucose POC Capillary Glucose 209 H 375 H 457 H Calcium Phosphorus Magnesium Total Bilirubin AST ALT Alkaline Phosphatase Total Protein Albumin Nasal MRSA (PCR) Hep Bs Antigen Hep Bs Antibody 09/19/24 09/19/24 01:00 04:51 WBC 7.5 RBC 3.16 L Hgb 8.9 L Hct 30.5 L MCV 96.5 MCH 28.2 MCHC 29.2 L RDW 15.3 H Plt Count 167 MPV 11.3 H Sodium 135 L Potassium 3.8 Chloride 93 L Carbon Dioxide 30 Anion Gap 12 BUN 41 H D Creatinine 4.76 H Estim Creat Clear Calc 10 Estimated GFR 9 L Glucose 165 H POC Capillary Glucose 355 H Calcium 8.0 L Phosphorus 6.3 H Magnesium 1.8 Total Bilirubin 0.4 AST 23 ALT 16 Alkaline Phosphatase 92 Total Protein 7.0 Albumin 3.4 L Nasal MRSA (PCR) Hep Bs Antigen Hep Bs Antibody Quality VTE Prophylaxis VTE prophylaxis: pharmacologic ordered
[2024-09-19 08:38] LABS: Iron 37 ug/dL (37-170)
[2024-09-19 08:47] LABS: Percent Iron Saturation 18 % (20-50)
[2024-09-19] MEDS: EPOETIN ALFA-EPBX 10,000 UNITS/ML VIAL 10000 UNITS IV PUSH (09:01)
[2024-09-19] MEDS: SODIUM CHLORIDE 0.9% IV 1,000 ML 999 ML IV CONT (09:01)
--- NOTE | 2024-09-19 10:55 | P.PNNP_ITS ---
Progress Note: A&P Assessment and Plan (1) End stage renal disease: Code(s): N18.6 - End stage renal disease Status: Acute Assessment and Plan: * HD tomorrow * continue M/W/F outpatient dialysis schedule * follow electrolytes, volume status, and clearance (2) Acute respiratory failure with hypoxia: Code(s): J96.01 - Acute respiratory failure with hypoxia Status: Acute Assessment and Plan: * presumably due to COVID infection * however, other risk factors noted: * possible pneumonia * known COPD * history fluid overload/CHF * reactive airway disease/asthma * on supplemental oxygen - wean as tolerated * on steroids (more so for COVID) * follow respiratory status (3) Metabolic encephalopathy: Code(s): G93.41 - Metabolic encephalopathy Status: Acute Assessment and Plan: * clinical improvement at this time * possible etiologies: * infection (UTI +/- pneumonia) * hypoxia * COVID * new CVA(?) * evaluation to date noted: * CT of head : no significant findings. * brain MRI: No acute abnormality, extensive chronic left mca distribution infarct, and mild sinus disease * TSH okay * ammonia normal * B12 and folic acid normal * continue supportive therapy (4) COVID-19 virus infection: Code(s): U07.1 - COVID-19 Status: Acute Assessment and Plan: * as noted by testing in the ER * on remdesivir and decadron * wean oxygen (although has home O2 to be used on an PRN basis) * follow respiratory status closely (5) UTI (urinary tract infection): Code(s): N39.0 - Urinary tract infection, site not specified Status: Resolved Assessment and Plan: * admission UA highly suggestive * follow culture data - urine/blood culture negative to date * on antibiotics (6) Anemia: Code(s): D64.9 - Anemia, unspecified Status: Chronic Assessment and Plan: * due to ESRD * RADHA/Epogen with HD * follow trend of H/H (7) Hypertension: Qualifiers: Hypertension type: unspecified Qualified Code(s): I10 - Essential (primary) hypertension Code(s): I10 - Essential (primary) hypertension Status: Chronic Assessment and Plan: * reasonable control at this time * follow trend of hemodynamics (8) Type 2 diabetes mellitus with hyperglycemia: Qualifiers: 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 L Subjective Date/time seen: 09/19/24 10:55 Interval history: Follow-up for end stage renal disease on hemodialysis. Tolerating dialysis treatment at the time of my visit (seen on HD at 10:45AM); appears to be doing reasonably well when seen; breathing/respiratory status remains stable but still requiring/on supplemental oxygen; mentation appears stable and back to baseline; no acute issues/events overnight or earlier this morning. Exam 2 Narrative: General: elderly but WD/WN female in NAD Heart: normal S1 and S2; no rub Lungs: clear anteriorly; decreased at bases Abdomen: soft, nontender, nondistended, positive bowel sounds Extremities: no cyanosis or clubbing; trace edema Skin: warm and dry Objective Data Vital Signs Vital Signs: Vital Signs Temp Pulse Resp BP Pulse Ox O2 Del Method O2 Flow Rate 09/19/24 10:54 58 L 151/59 H 09/19/24 10:45 59 L 155/59 H 09/19/24 10:30 49 L 124/78 09/19/24 10:15 54 L 155/56 H 09/19/24 10:00 56 L 135/47 L 09/19/24 09:45 55 L 166/76 H 09/19/24 09:30 52 L 168/68 H 09/19/24 09:15 58 L 169/62 H 09/19/24 09:00 52 L 168/68 H 09/19/24 09:00 53 L 161/60 H 09/19/24 08:45 52 L 172/69 H 09/19/24 08:30 53 L 167/68 H 09/19/24 08:15 55 L 140/68 09/19/24 08:00 54 L 09/19/24 08:00 56 L 168/48 H 09/19/24 07:45 52 L 166/64 H 09/19/24 07:30 52 L 146/64 H 09/19/24 07:23 53 L 151/65 H 09/19/24 07:10 2 09/19/24 07:10 97.9 F 54 L 16 120/68 100 09/19/24 04:22 97.7 F 56 L 20 128/78 99 09/19/24 04:00 55 L 09/19/24 00:00 51 L 09/18/24 22:30 100 Nasal Cannula 2 09/18/24 20:20 51 L 18 09/18/24 20:20 51 L 18 100 Nasal Cannula 2 09/18/24 20:00 50 L 09/18/24 19:49 97.8 F 51 L 18 158/41 H 100 09/18/24 16:00 50 L 09/18/24 14:00 98.2 F 54 L 135/40 L 96 Intake/Output Intake/Output: Intake & Output 09/16/24 09/17/24 09/18/24 09/19/24 23:59 23:59 23:59 23:59 Intake Total 300 1250 880 Output Total 1500 Balance 300 1250 -620 Meds/Results Medications: Active Medications Generic Name Dose Route Start Last Admin Trade Name Freq PRN Reason Stop Dose Admin Acetaminophen 650 mg 09/17/24 21:13 09/18/24 11:01 Acetaminophen 325 Mg Tablet PO 650 mg Q4H PRN Administration Mild Pain (1-3) or Fever Albuterol 2.5 mg 09/17/24 23:01 Albuterol Sulfate Neb 2.5 Mg/3 Ml Inh INHALATION Q4-6H PRN shortness of breath or wheezing Amiodarone HCl 200 mg 09/18/24 08:00 09/19/24 11:49 Amiodarone Hcl 200 Mg Tablet PO 200 mg DAILY@0800 ALINA Administration Apixaban 2.5 mg 09/17/24 23:05 09/19/24 11:44 Apixaban 2.5 Mg Tablet PO 2.5 mg Q12HR ALINA Administration Atorvastatin Calcium 20 mg 09/17/24 23:10 09/18/24 22:39 Atorvastatin 20 Mg Tablet PO 20 mg HS ALINA Administration Dexamethasone Sodium Phosphate 6 mg 09/18/24 09:00 09/19/24 11:49 Dexamethasone Sod Phos Inj 10 Mg/Ml 1 Ml Vial IV PUSH 09/27/24 09:01 6 mg DAILY ALINA Administration Dextrose 12.5 gm 09/17/24 21:13 Dextrose 50% 25 Gm/50 Ml Syringe IV PUSH PRN PRN Hypoglycemia Protocol Epoetin Jorge Alberto-epbx 10,000 units 09/19/24 18:48 09/19/24 09:01 Epoetin Jorge Alberto-Epbx 10,000 Units/Ml Vial IV PUSH 09/19/24 18:49 10,000 units ONCE ONE Administration Fluticasone Propionate 1 spray 09/18/24 09:00 09/19/24 11:50 Fluticasone Propionate 0.05% Na Spr 16 Gm Btl (*Bkc) NASAL 1 spray DAILY ALINA Administration Glucagon 1 mg 09/17/24 21:13 Glucagon For Inj 1 Mg Vial IM PRN PRN Hypoglycemia Protocol Glucose 15 gm 09/17/24 21:13 Glucose Oral Gel 15 Gm Of Glucse In 37.5 Gm Tube PO PRN PRN Hypoglycemia Protocol Guaifenesin/Dextromethorphan 1 tab 09/18/24 11:20 09/19/24 11:44 Guaifenesin 600 Mg/Dextromethorphan 30 Mg Sr Tab 12 Hr PO 1 tab Q12HR ALINA Administration Ceftriaxone Sodium 1 gm in 50 mls @ 100 mls/hr 09/18/24 21:00 09/18/24 23:08 Rocephin 1 Gm/Ns 50 Ml IVPB Infused Q24H ALINA Infusion Remdesivir 100 mg in 250 mls @ 250 mls/hr 09/18/24 22:00 09/19/24 00:14 IVPB 09/21/24 22:59 Infused Q24H ALINA Infusion Dextrose 1,000 mls @ 100 mls/hr 09/17/24 21:13 Dextrose 5% 1,000 Ml IVPB PRN PRN Hypoglycemia Protocol Albumin Human 50 mls @ 999 mls/hr 09/19/24 06:48 Albutein IVPB 10/19/24 06:47 Q10M PRN HYPOTENSION Insulin Aspart 2 - 5 units 09/18/24 08:00 09/19/24 11:50 Insulin Aspart (*Bkc) 100 Units/Ml SUB-Q Not Given TIDWM ALINA Protocol Insulin Aspart 1 - 2 units 09/18/24 21:00 09/18/24 22:39 Insulin Aspart (*Bkc) 100 Units/Ml SUB-Q Not Given HS ALINA Protocol Insulin Glargine 18 units 09/17/24 23:10 09/18/24 22:38 Insulin Glargine (*Bkc) 100 Units/Ml SUB-Q 18 units HS ALINA Administration Isosorbide Mononitrate 30 mg 09/19/24 09:00 09/19/24 11:43 Isosorbide Mononitrate 30 Mg Tab.Er.24h PO 30 mg DAILY ALINA Administration Levothyroxine Sodium 100 mcg 09/18/24 06:30 09/19/24 05:51 Levothyroxine Sodium 100 Mcg Tablet PO 100 mcg DAILY@0630 ALINA Administration Levothyroxine Sodium 75 mcg 09/18/24 06:30 09/19/24 05:51 Levothyroxine Sodium 75 Mcg Tablet PO 75 mcg DAILY@0630 ALINA Administration Lorazepam 0.5 mg 09/17/24 23:01 09/18/24 11:01 Lorazepam (*Crx) 0.5 Mg Tablet PO 0.5 mg DAILY PRN Administration anxiety Metoprolol Succinate 50 mg 09/18/24 09:00 09/19/24 11:49 Metoprolol Succinate Ext Rel 50 Mg Tabcr PO 50 mg QAM ALINA Administration Montelukast Sodium 10 mg 09/18/24 09:00 09/19/24 11:44 Montelukast Sodium 10 Mg Tablet PO 10 mg DAILY [facility] Administration Ondansetron HCl 4 mg 09/17/24 21:13 Ondansetron Inj 4 Mg/2 Ml Vial IV PUSH Q4H PRN Nausea Ropinirole HCl 0.5 mg 09/17/24 23:10 09/19/24 11:44 Ropinirole Hcl 0.5 Mg Tablet PO 0.5 mg Q12HR [facility] Administration Fluticasone/Salmeterol 2 puff 09/18/24 08:00 09/19/24 08:57 Fluticasone/Salmeterol 115-21 Mcg Inhaler 1 Puff INHALATION Not Given Q12HRT [facility] Umeclidinium [place] 1 puff 09/18/24 08:00 09/19/24 08:57 Umeclidinium [place] 62.5 Mcg Ellipta INHALATION Not Given DAILYRT [facility] Radiology Results: ITS Impressions Head CT 09/17/24 18:54 IMPRESSION: No acute intracranial findings. Chest X-Ray 09/17/24 19:46 IMPRESSION: Prominent markings in the lower lobes with possible early pneumonia. Underlying pulmonary edema is not excluded. Clinical correlation and follow-up advised. Brain MRI 09/18/24 12:19 IMPRESSION: No acute abnormality. Extensive chronic left MCA distribution infarct, new from prior exam. Mild sinus disease, as above. Labs Labs: Laboratory Tests 09/19/24 04:51 09/19/24 04:51 Calcium 8.0 L Phosphorus 6.3 H Magnesium 1.8 Iron 37 TIBC 208 L % Saturation 18 L Total Bilirubin 0.4 AST 23 ALT 16 Alkaline Phosphatase 92 Total Protein 7.0 Albumin 3.4 L Microbiology 09/17/24 18:58 Urine Catheterized Urine Culture Reflexed - Final 09/17/24 21:36 Blood Blood Culture - Preliminary 09/17/24 21:36 Blood Blood Culture - Preliminary
--- NOTE | 2024-09-19 11:30 | PC.NURSE ---
Patient returned from dialysis at 1130 via bed, Gopal ROJAS reports 1.5liters removed, patient tolerated well.
[2024-09-19] MEDS: ISOSORBIDE MONONITRATE 30 MG TAB.ER.24H PO (11:43)
[2024-09-19] MEDS: MONTELUKAST SODIUM 10 MG TABLET PO (11:44)
[2024-09-19] MEDS: rOPINIRole HCL 0.5 MG TABLET PO ×2 (11:44→20:33)
[2024-09-19] MEDS: APIXABAN 2.5 MG TABLET PO ×2 (11:44→20:33)
[2024-09-19] MEDS: guaiFENesin 600 MG/DEXTROMETHORPHAN 30 MG SR TAB 12 HR 1 TAB PO ×2 (11:44→20:34)
[2024-09-19 11:46] LABS: Glucose Point of Care 110 mg/dl (65-105)
[2024-09-19] MEDS: dexAMETHasone SOD PHOS INJ 10 MG/ML 1 ML VIAL 6 MG IV PUSH (11:49)
[2024-09-19] MEDS: AMIODARONE HCL 200 MG TABLET PO (11:49)
[2024-09-19] MEDS: METOPROLOL SUCCINATE EXT REL 50 MG TABCR PO (11:49)
[2024-09-19] MEDS: FLUTICASONE PROPIONATE 0.05% NA SPR 16 GM BTL (*BKC) 1 SPRAY NASAL (11:50)
[2024-09-19 16:53] LABS: Glucose Point of Care 272 mg/dl (65-105)
[2024-09-19] MEDS: INSULIN ASPART (*BKC) 100 UNITS/ML SUB-Q (17:10)
[2024-09-19] MEDS: INSULIN GLARGINE (*BKC) 100 UNITS/ML 18 UNITS SUB-Q (20:33)
[2024-09-19] MEDS: ATORVASTATIN 20 MG TABLET PO (20:33)
[2024-09-19] MEDS: FLUTICASONE/SALMETEROL 115-21 MCG INHALER 1 PUFF 2 PUFF INHALATION (21:13)
[2024-09-19] MEDS: REMDESIVIR 100 MG/NS 250 ML 100 MG/250 ML BAG 250 MG IVPB (21:47)
[2024-09-19 22:03] LABS: Glucose Point of Care 407 mg/dl (65-105)
[2024-09-20] VITALS (13 sets, daily range): BP systolic 145–154; BP diastolic 58–92; PULSE 50–66; RESP 16–20; TEMP 36.5; O2SAT 91–97
[2024-09-20 01:51] LABS: Glucose Point of Care 283 mg/dl (65-105)
[2024-09-20] MEDS: LEVOTHYROXINE SODIUM 100 MCG TABLET PO (05:34)
[2024-09-20] MEDS: LEVOTHYROXINE SODIUM 75 MCG TABLET PO (05:34)
[2024-09-20 06:11] LABS: Hematocrit 30.1 % (37.0-47.0); Hemoglobin 8.9 g/dL (12.0-15.0); Mean Corpuscular HGB Conc 29.6 g/dl (32-36); Mean Corpuscular Hemoglobin 28.8 pg (26-34); Mean Corpuscular Volume 97.4 fl (80-100); Mean Platelet Volume 11.2 fl (7.4-10.4); Platelet Count Result 163 k/mm3 (150-375); Red Blood Count 3.09 M/mm3 (4.2-5.4); Red Cell Distribution Width 15.5 % (11.5-14.5); White Blood Count 7.3 K/mm3 (4.5-10.0)
[2024-09-20 06:42] LABS: Alanine Aminotransferase 18 U/L (6-35); Albumin Level 3.4 g/dL (3.5-5.1); Alkaline Phosphatase 95 U/L (38-126); Anion Gap 11 mmol/L (4-12); Aspartate Amino Transferase 29 U/L (14-36); Bilirubin,Total 0.3 mg/dL (0.2-1.3); Blood Urea Nitrogen 33 mg/dL (7-17); Calcium 8.1 mg/dL (8.4-10.2); Carbon Dioxide 25 mmol/L (22-30); Chloride 98 mmol/L (98-107); Estimated CRCL calculation 14 ml/min; Estimated Glomerular Filt Rate 13; Glucose 254 mg/dL (65-110); Magnesium 1.9 mg/dL (1.6-2.3); Phosphorus 4.1 mg/dL (2.5-4.5); Potassium 4.3 mmol/L (3.4-5.0); Sodium 134 mmol/L (137-145)
[2024-09-20] MEDS: FLUTICASONE/SALMETEROL 115-21 MCG INHALER 1 PUFF 2 PUFF INHALATION (07:39)
[2024-09-20] MEDS: UMECLIDINIUM BROMIDE 62.5 MCG ELLIPTA 1 PUFF INHALATION (07:40)
[2024-09-20 07:55] LABS: Glucose Point of Care 218 mg/dl (65-105)
--- NOTE | 2024-09-20 09:41 | P.PNNP_ITS ---
Progress Note: A&P Assessment and Plan (1) End stage renal disease: Code(s): N18.6 - End stage renal disease Status: Acute Assessment and Plan: * HD was done yesterday. * continue M/W/F outpatient dialysis schedule * No sign of fluid overload. * BUN, potassium, and bicarbonate are all good. (2) Acute respiratory failure with hypoxia: Code(s): J96.01 - Acute respiratory failure with hypoxia Status: Acute Assessment and Plan: * presumably due to COVID infection * however, other risk factors noted: * possible pneumonia * known COPD * history fluid overload/CHF * reactive airway disease/asthma * Off oxygen today. * on steroids (more so for COVID) * follow respiratory status (3) Metabolic encephalopathy: Code(s): G93.41 - Metabolic encephalopathy Status: Acute Assessment and Plan: * clinical improvement at this time * possible etiologies: * infection (UTI +/- pneumonia) * hypoxia * COVID * new CVA(?) * evaluation to date noted: * CT of head : no significant findings. * brain MRI: No acute abnormality, extensive chronic left mca distribution infarct, and mild sinus disease * TSH okay * ammonia normal * B12 and folic acid normal * continue supportive therapy (4) COVID-19 virus infection: Code(s): U07.1 - COVID-19 Status: Acute Assessment and Plan: * as noted by testing in the ER * on remdesivir and decadron * Off oxygen. * Breathing is fine. She did not cough always in the room. (5) UTI (urinary tract infection): Code(s): N39.0 - Urinary tract infection, site not specified Status: Resolved Assessment and Plan: * admission UA highly suggestive * Urine cultures are negative. Blood cultures are negative as well * on ceftriaxone (6) Anemia: Code(s): D64.9 - Anemia, unspecified Status: Chronic Assessment and Plan: * due to ESRD * RADHA/Epogen with HD * hemoglobin the same today as yesterday at 8.9. * Check a reticulocyte count (7) Hypertension: Qualifiers: Hypertension type: unspecified Qualified Code(s): I10 - Essential (primary) hypertension Code(s): I10 - Essential (primary) hypertension Status: Chronic Assessment and Plan: * systolic 120s to 150s * follow trend of hemodynamics (8) Type 2 diabetes mellitus with hyperglycemia: Qualifiers: Diabetes mellitus fpc insulin use: with termite exterminator helper use Qualified Code(s): E11.65 - Type 2 diabetes mellitus with hyperglycemia; Z79.4 - termite exterminator helper (current) use of insulin Code(s): E11.65 - Type 2 diabetes mellitus with hyperglycemia Status: Chronic Assessment and Plan: * follow accu-cheks * glycemic control per hospitalist Subjective Date/time seen: 09/20/24 09:41 Interval history: Gregoria is up in a chair. She is a bit more agitated and attempting to talk more today. She did recognize me. She says she is not in pain. She has a tiny bit of shortness of breath. Exam Narrative: General: elderly but WD/WN female in NAD Heart: normal S1 and S2; no rub or gallop Lungs: clear anteriorly; decreased at bases Abdomen: soft, nontender, nondistended, positive bowel sounds Extremities: no cyanosis or clubbing; trace edema Skin: No rash Objective Data Vital Signs Vital Signs: Vital Signs - 24 hr 09/19/24 09:45 09/19/24 10:00 09/19/24 10:15 Temperature Pulse Rate 55 L 56 L 54 L Respiratory Rate Blood Pressure 166/76 H 135/47 L 155/56 H Pulse Oximetry Oxygen Delivery Oxygen Flow Rate Fraction of Inspired Oxygen 09/19/24 10:30 09/19/24 10:45 09/19/24 10:54 Temperature Pulse Rate 49 L 59 L 58 L Respiratory Rate Blood Pressure 124/78 155/59 H 151/59 H Pulse Oximetry Oxygen Delivery Oxygen Flow Rate Fraction of Inspired Oxygen 09/19/24 11:12 09/19/24 11:45 09/19/24 11:49 Temperature 97.9 F Pulse Rate 57 L 62 Respiratory Rate 16 Blood Pressure 158/60 H Pulse Oximetry 97 92 Oxygen Delivery Nasal Cannula Oxygen Flow Rate 2 Fraction of Inspired Oxygen 09/19/24 11:49 09/19/24 12:00 09/19/24 13:15 Temperature Pulse Rate 62 63 Respiratory Rate Blood Pressure Pulse Oximetry Oxygen Delivery Nasal Cannula Oxygen Flow Rate 2 Fraction of Inspired Oxygen 09/19/24 14:00 09/19/24 16:00 09/19/24 16:19 Temperature Pulse Rate 64 50 L Respiratory Rate Blood Pressure 126/43 L Pulse Oximetry 93 96 Oxygen Delivery Nasal Cannula Oxygen Flow Rate 1 Fraction of Inspired Oxygen 09/19/24 20:00 09/19/24 20:20 09/19/24 20:37 Temperature 97.8 F Pulse Rate 53 L 52 L Respiratory Rate 20 Blood Pressure 159/46 H Pulse Oximetry 96 96 Oxygen Delivery Room Air Oxygen Flow Rate Fraction of Inspired Oxygen 09/19/24 21:19 09/19/24 22:16 09/20/24 00:00 Temperature Pulse Rate 50 L Respiratory Rate Blood Pressure Pulse Oximetry 91 91 Oxygen Delivery Room Air Room Air Oxygen Flow Rate Fraction of Inspired Oxygen 09/20/24 03:39 09/20/24 04:38 09/20/24 07:39 Temperature 97.7 F Pulse Rate 55 L 53 L Respiratory Rate 20 Blood Pressure 145/58 H Pulse Oximetry 94 92 Oxygen Delivery Room Air Oxygen Flow Rate Fraction of Inspired Oxygen 09/20/24 07:39 Temperature Pulse Rate 54 L Respiratory Rate 16 Blood Pressure Pulse Oximetry Oxygen Delivery Oxygen Flow Rate Fraction of Inspired Oxygen Intake/Output Intake/Output: Intake & Output 09/17/24 09/18/24 09/19/24 09/20/24 23:59 23:59 23:59 23:59 Intake Total 300 1250 1940 140 Output Total 1500 Balance 300 1250 440 140 Meds/Results Medications: Active Medications Generic Name Dose Route Start Last Admin Trade Name Freq PRN Reason Stop Dose Admin Acetaminophen 650 mg 09/17/24 21:13 09/18/24 11:01 Acetaminophen 325 Mg Tablet PO 650 mg Q4H PRN Administration Mild Pain (1-3) or Fever Albuterol 2.5 mg 09/17/24 23:01 Albuterol Sulfate Neb 2.5 Mg/3 Ml Inh INHALATION Q4-6H PRN shortness of breath or wheezing Amiodarone HCl 200 mg 09/18/24 08:00 09/19/24 11:49 Amiodarone Hcl 200 Mg Tablet PO 200 mg DAILY@0800 ALINA Administration Apixaban 2.5 mg 09/17/24 23:05 09/19/24 20:33 Apixaban 2.5 Mg Tablet PO 2.5 mg Q12HR ALINA Administration Atorvastatin Calcium 20 mg 09/17/24 23:10 09/19/24 20:33 Atorvastatin 20 Mg Tablet PO 20 mg HS ALINA Administration Dexamethasone Sodium Phosphate 6 mg 09/18/24 09:00 09/19/24 11:49 Dexamethasone Sod Phos Inj 10 Mg/Ml 1 Ml Vial IV PUSH 09/27/24 09:01 6 mg DAILY ALINA Administration Dextrose 12.5 gm 09/17/24 21:13 Dextrose 50% 25 Gm/50 Ml Syringe IV PUSH PRN PRN Hypoglycemia Protocol Fluticasone Propionate 1 spray 09/18/24 09:00 09/19/24 11:50 Fluticasone Propionate 0.05% Na Spr 16 Gm Btl (*Bkc) NASAL 1 spray DAILY ALINA Administration Glucagon 1 mg 09/17/24 21:13 Glucagon For Inj 1 Mg Vial IM PRN PRN Hypoglycemia Protocol Glucose 15 gm 09/17/24 21:13 Glucose Oral Gel 15 Gm Of Glucse In 37.5 Gm Tube PO PRN PRN Hypoglycemia Protocol Guaifenesin/Dextromethorphan 1 tab 09/18/24 11:20 09/19/24 20:34 Guaifenesin 600 Mg/Dextromethorphan 30 Mg Sr Tab 12 Hr PO 1 tab Q12HR ALINA Administration Ceftriaxone Sodium 1 gm in 50 mls @ 100 mls/hr 09/18/24 21:00 09/19/24 21:03 Rocephin 1 Gm/Ns 50 Ml IVPB Infused Q24H ALINA Infusion Remdesivir 100 mg in 250 mls @ 250 mls/hr 09/18/24 22:00 09/19/24 22:47 IVPB 09/21/24 22:59 Infused Q24H ALINA Infusion Dextrose 1,000 mls @ 100 mls/hr 09/17/24 21:13 Dextrose 5% 1,000 Ml IVPB PRN PRN Hypoglycemia Protocol Albumin Human 50 mls @ 999 mls/hr 09/19/24 06:48 Albutein IVPB 10/19/24 06:47 Q10M PRN HYPOTENSION Insulin Aspart 2 - 5 units 09/18/24 08:00 09/19/24 17:10 Insulin Aspart (*Bkc) 100 Units/Ml SUB-Q 3 units TIDWM ALINA Administration Protocol Insulin Aspart 1 - 2 units 09/18/24 21:00 09/19/24 20:50 Insulin Aspart (*Bkc) 100 Units/Ml SUB-Q Not Given HS ALINA Protocol Insulin Glargine 18 units 09/17/24 23:10 09/19/24 20:33 Insulin Glargine (*Bkc) 100 Units/Ml SUB-Q 18 units HS ALINA Administration Isosorbide Mononitrate 30 mg 09/19/24 09:00 09/19/24 11:43 Isosorbide Mononitrate 30 Mg Tab.Er.24h PO 30 mg DAILY ALINA Administration Levothyroxine Sodium 100 mcg 09/18/24 06:30 09/20/24 05:34 Levothyroxine Sodium 100 Mcg Tablet PO 100 mcg DAILY@0630 ALINA Administration Levothyroxine Sodium 75 mcg 09/18/24 06:30 09/20/24 05:34 Levothyroxine Sodium 75 Mcg Tablet PO 75 mcg DAILY@0630 ALINA Administration Lorazepam 0.5 mg 09/17/24 23:01 09/18/24 11:01 Lorazepam (*Crx) 0.5 Mg Tablet PO 0.5 mg DAILY PRN Administration anxiety Metoprolol Succinate 50 mg 09/18/24 09:00 09/19/24 11:49 Metoprolol Succinate Ext Rel 50 Mg Tabcr PO 50 mg QAM ALINA Administration Montelukast Sodium 10 mg 09/18/24 09:00 09/19/24 11:44 Montelukast Sodium 10 Mg Tablet PO 10 mg DAILY ALINA Administration Ondansetron HCl 4 mg 09/17/24 21:13 Ondansetron Inj 4 Mg/2 Ml Vial IV PUSH Q4H PRN Nausea Ropinirole HCl 0.5 mg 09/17/24 23:10 09/19/24 20:33 Ropinirole Hcl 0.5 Mg Tablet PO 0.5 mg Q12HR ALINA Administration Fluticasone/Salmeterol 2 puff 09/18/24 08:00 09/20/24 07:39 Fluticasone/Salmeterol 115-21 Mcg Inhaler 1 Puff INHALATION 2 puff Q12HRT ALINA Administration Umeclidinium [place] 1 puff 09/18/24 08:00 09/20/24 07:40 Umeclidinium [place] 62.5 Mcg Ellipta INHALATION 1 puff DAILYRT ALINA Administration Radiology Results: ITS Impressions Head CT 09/17/24 18:54 IMPRESSION: No acute intracranial findings. Chest X-Ray 09/17/24 19:46 IMPRESSION: Prominent markings in the lower lobes with possible early pneumonia. Underlying pulmonary edema is not excluded. Clinical correlation and follow-up advised. Brain MRI 09/18/24 12:19 IMPRESSION: No acute abnormality. Extensive chronic left MCA distribution infarct, new from prior exam. Mild sinus disease, as above. Labs Labs: Laboratory Results - last 24 hr 09/19/24 09/19/24 09/19/24 11:40 16:47 20:24 WBC RBC Hgb Hct MCV MCH MCHC RDW Plt Count MPV Sodium Potassium Chloride Carbon Dioxide Anion Gap BUN Creatinine Estim Creat Clear Calc Estimated GFR Glucose POC Capillary Glucose 110 H 272 H 407 H Calcium Phosphorus Magnesium Total Bilirubin AST ALT Alkaline Phosphatase Total Protein Albumin 09/20/24 09/20/24 09/20/24 01:47 06:01 07:48 WBC 7.3 RBC 3.09 L Hgb 8.9 L Hct 30.1 L MCV 97.4 MCH 28.8 MCHC 29.6 L RDW 15.5 H Plt Count 163 MPV 11.2 H Sodium 134 L Potassium 4.3 Chloride 98 Carbon Dioxide 25 Anion Gap 11 BUN 33 H Creatinine 3.46 H Estim Creat Clear Calc 14 Estimated GFR 13 L Glucose 254 H POC Capillary Glucose 283 H 218 H Calcium 8.1 L Phosphorus 4.1 Magnesium 1.9 Total Bilirubin 0.3 AST 29 ALT 18 Alkaline Phosphatase 95 Total Protein 7.0 Albumin 3.4 L
[2024-09-20] MEDS: MONTELUKAST SODIUM 10 MG TABLET PO (09:44)
[2024-09-20] MEDS: APIXABAN 2.5 MG TABLET PO (09:44)
[2024-09-20] MEDS: rOPINIRole HCL 0.5 MG TABLET PO (09:44)
[2024-09-20] MEDS: guaiFENesin 600 MG/DEXTROMETHORPHAN 30 MG SR TAB 12 HR 1 TAB PO (09:44)
[2024-09-20] MEDS: ISOSORBIDE MONONITRATE 30 MG TAB.ER.24H PO (09:44)
[2024-09-20] MEDS: FLUTICASONE PROPIONATE 0.05% NA SPR 16 GM BTL (*BKC) 1 SPRAY NASAL (09:51)
[2024-09-20] MEDS: AMIODARONE HCL 200 MG TABLET PO (09:51)
[2024-09-20] MEDS: INSULIN ASPART (*BKC) 100 UNITS/ML SUB-Q ×2 (09:55→12:42)
[2024-09-20] MEDS: dexAMETHasone SOD PHOS INJ 10 MG/ML 1 ML VIAL 6 MG IV PUSH (09:56)
--- NOTE | 2024-09-20 10:54 | PCRCNOTE ---
Addendum entered by Tali Mena, RIGOBERTO 09/20/24 12:26: Spoke to provider and will attempt again to see if patient is willing to walk for home O2 eval. Patient might have been confused since she had been told not to get out of the chair. Addendum entered by Tali Mena, RIGOBERTO 09/20/24 11:53: Attempted again @ 1148 to call provider Original Note: RT explained patient the home oxygen walk. Pt allowed RT to place pulse ox on finger while @ rest on room air. Pt's SpO2 was 94%. Pt then started getting extremely agitated about not getting up out of her chair to finish the home oxygen test. RT tried multiple time with no luck. RT called Ilsa Henley PA-C @ [phone] to notify to which there was no answer. Will continue to try and get ahold of provider.
[2024-09-20 12:10] LABS: Glucose Point of Care 215 mg/dl (65-105)
--- NOTE | 2024-09-20 14:40 | P.DS_ITS ---
DS: Admitting Diagnosis Discharge Date 09/20/2024 Admitting Diagnosis Acute respiratory failure with hypoxia Metabolic encephalopathy urinary tract infection covid Atrial fibrillation End-stage renal disease on dialysis Type 2 diabetes Diabetes mellitus Hypertension DS: Discharge Diagnosis Discharge Diagnosis (1) Acute respiratory failure with hypoxia: Code(s): J96.01 - Acute respiratory failure with hypoxia Status: Acute (2) Metabolic encephalopathy: Code(s): G93.41 - Metabolic encephalopathy Status: Acute (3) UTI (urinary tract infection): Qualifiers: Hematuria presence: without hematuria Urinary tract infection type: acute cystitis Qualified Code(s): N30.00 - Acute cystitis without hematuria Code(s): N39.0 - Urinary tract infection, site not specified Status: Acute (4) COVID: Code(s): U07.1 - COVID-19 Status: Acute (5) Atrial fibrillation: Code(s): I48.91 - Unspecified atrial fibrillation Status: Chronic (6) ESRD on dialysis: Code(s): N18.6 - End stage renal disease; Z99.2 - Dependence on renal dialysis Status: Acute (7) Type 2 diabetes mellitus with hyperglycemia: Qualifiers: Diabetes mellitus correction insulin use: with correction use Qualified Code(s): E11.65 - Type 2 diabetes mellitus with hyperglycemia; Z79.4 - adjunct faculty for medical terminology (current) use of insulin Code(s): E11.65 - Type 2 diabetes mellitus with hyperglycemia Status: Chronic (8) Hypertension: Qualifiers: Hypertension type: unspecified Qualified Code(s): I10 - Essential (primary) hypertension Code(s): I10 - Essential (primary) hypertension Status: Chronic DS: Summary Hospital Course Reason for hospitalization: Acute respiratory failure with hypoxia Metabolic encephalopathy urinary tract infection covid Atrial fibrillation End-stage renal disease on dialysis Type 2 diabetes Diabetes mellitus Hypertension Hospital Course: 73-year-old female with a complex medical history of COPD, DM, hypertension, end-stage renal disease on dialysis MWF, CAD, CHF, AFib on Eliquis/amiodarone, hypothyroidism, previous CVA with residual right-sided deficits, and expressive aphasia. According to the ED notes, the patient had dialysis day of admission, and after returning from the dialysis, the patient was weaker than usual and more confused. Per EMS, patient was noted to be hypoxic down to 88% on room air upon arrival. She does have home oxygen that she can use as needed at home. Per daughter patient is noncompliant with home oxygen. She was placed on 2 L nasal cannula with stabilization of oxygen saturations. Chest XR showed prominent markings in the lower lobes with possible early pneumonia. Underlying pulmonary edema is not excluded. Patient was covid positive on viral panel, started on remdesivir and decadron per protocol. She continued to improve throughout admission and was weaned back to room air. Home O2 eval performed and no home oxygen required per respiratory therapy. Unable to assess orientation given patients expressive aphasia. Metabolic encephalopathy possibly due to UTI, COVID, and possibly another CVA. Brain CT showed no significant findings. MRI showed no acute abnormality but extensive chronic left mca distribution infarct and mild sinus disease. Per daughter patient has returned to baseline mental per family. Urine culture was concerning for infection on admission, started on IV antibiotics. Urine culture returned negative however will continue oral antibiotics to complete UTI course given patients improvement. Patient was evaluated by PT/OT during admisison who recommended home health therapy. Family is in agreement with discharge plan. Patient discharged with home health in a stable condition. She is to follow up with her primary care provider in 1 week. Status at Discharge Functional status at discharge: uses cane/walker Time Spent with Patient Time attestation: Total time spent providing and/or coordinating discharge services: Time spent: Greater than 30 minutes Exam Narrative: AF HR 60 RR 16 SPO2 97 RA BP 154/92 General: Female in no acute respiratory distress who is nontoxic appearing, sitting up in chair HEENT: Normocephalic. Atraumatic. Extraocular movement intact. Sclera clear and anicteric. No facial asymmetry. Chest: Lungs are clear to auscultation bilaterally. No wheezes or crackles. CV: Heart was regular rate and rhythm. Abd: Abdomen was soft. Nontender. Nondistended. Positive bowel sounds. Ext: No clubbing, cyanosis, or edema. DP pulses bilaterally. Neuro: Patient is alert and following commands, per family at baseline. Expressive aphasia. Right sided deficits from prior CVA. DS: Data Data Completed and Pending Completed studies during hospitalization: Brain MRI Chest XR Head CT Labs on day of discharge: Labs from last 24 hours 09/20/24 09/20/24 09/20/24 11:59 07:48 06:01 WBC 7.3 RBC 3.09 L Hgb 8.9 L Hct 30.1 L MCV 97.4 MCH 28.8 MCHC 29.6 L RDW 15.5 H Plt Count 163 MPV 11.2 H Sodium 134 L Potassium 4.3 Chloride 98 Carbon Dioxide 25 Anion Gap 11 BUN 33 H Creatinine 3.46 H Estim Creat Clear Calc 14 Estimated GFR 13 L Glucose 254 H POC Capillary Glucose 215 H 218 H Calcium 8.1 L Phosphorus 4.1 Magnesium 1.9 Total Bilirubin 0.3 AST 29 ALT 18 Alkaline Phosphatase 95 Total Protein 7.0 Albumin 3.4 L 09/20/24 09/19/24 09/19/24 01:47 20:24 16:47 WBC RBC Hgb Hct MCV MCH MCHC RDW Plt Count MPV Sodium Potassium Chloride Carbon Dioxide Anion Gap BUN Creatinine Estim Creat Clear Calc Estimated GFR Glucose POC Capillary Glucose 283 H 407 H 272 H Calcium Phosphorus Magnesium Total Bilirubin AST ALT Alkaline Phosphatase Total Protein Albumin Preliminary micro results at discharge 09/17/24 21:36 Blood Culture - Preliminary Blood 09/17/24 21:36 Blood Culture - Preliminary Blood Discharge Plan Discharge Attending physician on discharge: Fabio Escamilla Consulting providers: Dimas Rios Discharging Clinician: Ilsa Henley Anticipated Discharge Date/Time: 09/20/24 14:29 Patient Disposition: Home with Home Health Service Activity: as tolerated Diet: as tolerated, heart healthy and diabetic Discharge Instructions: Discharge disposition: Patient admitted to the hospital for weakness Diagnosed with covid Originally requiring oxygen supplementation, however weaned back to room air prior to discharge Home O2 eval performed and no oxygen required at rest or with ambulation Patient received decadron and remdesivir during admission Follow up with primary care provider and pulmonology as scheduled Patient diagnosed with a urinary tract infection Take all medications as prescribed even if feeling better Augmentin twice a day, course to start tonight and be completed on the morning of 09/23 Attached is information on this medication Eat well balanced meals and stay hydrated Keep active to remain strong Avoid use of diapers or pads Good tiffany Care every 2 hours Trend urine output Continue dialysis as scheduled Monitor blood pressures Take caution while standing, rising, or moving Change positions slowly taking a break between each position change If you standing feel dizzy sit back down and take a break Encouraged to continue with yearly vaccinations Return to the emergency department if he developed sudden shortness of breath, chest pain, nausea, vomiting, upset stomach or intractable diarrhea Return to the emergency department if you develop fever greater than 101.5 Follow-up with the primary care physician within 1-2 weeks Thank you for [facility] for your healthcare needs Per Care Coordination. Patient to have [facility] for RN/PT/OT eval and treat. #[phone] RN please fax discharge instructions to F: [phone] Patient Instructions: Antibiotic Form, Amoxicillin/Clavulanate Potassium (By mouth), Apixaban (By mouth), Urinary Tract Infection in Older Adults (DC), COVID-19 (Coronavirus Disease 2019) (DC) Patient Language: Other Stand Alone Forms: General Discharge Information Follow-up/Referrals: Rikki Amezquita MD [Primary Care Provider] - 1 Week Discharge Medications: New amoxicillin-pot clavulanate 875-125 mg tablet 1 tablet PO Q12H Qty: 6 0RF Continued insulin aspart U-100 [Novolog FlexPen U-100 Insulin] 100 unit/mL (3 mL) insulin pen See Rx Instructions .ROUTE .COMPLEX MDD 60 Rx Instructions: sliding scale albuterol sulfate [Ventolin HFA] 90 mcg/actuation HFA aerosol inhaler See Rx Instructions .ROUTE .COMPLEX Qty: 18 6RF Dose Instruction: INHALE 2 PUFFS BY MOUTH 4 TIMES DAILY NEEDED FOR SHORTNESS OF BREATH OR WHEEZING. Rx Instructions: INHALE 2 PUFFS BY MOUTH 4 TIMES DAILY NEEDED FOR SHORTNESS OF BREATH OR WHEEZING. metoprolol succinate 50 mg tablet extended release 24 hr 50 mg PO QAM Qty: 90 0RF atorvastatin [Lipitor] 20 mg tablet 20 mg PO HS Qty: 90 1RF lorazepam [Ativan] 0.5 mg tablet 0.5 mg PO DAILY PRN (Reason: anxiety) montelukast 10 mg tablet 10 mg PO DAILY Qty: 90 3RF amiodarone 200 mg tablet 200 mg PO QAM ropinirole 2 mg tablet 0.5 mg PO Q12H insulin glargine [Lantus Solostar U-100 Insulin] 100 unit/mL (3 mL) insulin pen 18 unit subcut QPM Rx Instructions: INJECT 18 UNITS UNDER THE SKIN AT BEDTIME tiotropium bromide [Spiriva with HandiHaler] 18 mcg capsule, w/inhalation device 1 cap INHALATION DAILY@0800 levothyroxine 175 mcg tablet 200 mcg PO DAILY hydralazine 25 mg tablet 25 mg PO TID isosorbide mononitrate 30 mg tablet extended release 24 hr 30 mg PO DAILY fluticasone propionate 50 mcg/actuation spray,suspension 1 spray NASAL DAILY albuterol sulfate 2.5 mg /3 mL (0.083 %) solution for nebulization 2.5 mg inhalation Q4-6H PRN (Reason: shortness of breath or wheezing) Qty: 90 6RF budesonide-formoterol 160-4.5 mcg/actuation HFA aerosol inhaler 2 puff inhalation Q12H Qty: 10.2 6RF trazodone 50 mg tablet 50 mg PO QHS Qty: 30 2RF Eliquis 2.5 mg tablet See Rx Instructions PO .COMPLEX Qty: 180 2RF Dose Instruction: TAKE 1 TABLET TWICE DAILY Rx Instructions: TAKE 1 TABLET TWICE DAILY orally ; Date of admission: 09/18/24 07:28 Primary Care Provider: Rikki Amezquita Admitting Provider: Harley Reyes Attending physician on admission: Ilsa Henley Condition: Stable Hospitalist MIPS Heart Failure (Exclusion) Patient has history of Heart Transplant or Left Ventricular Assistive Device?: No IF YES, STOP HERE Heart Failure (Qualifier) Patient has current or prior documentation of LVEF less than or equal to 40%, or mod/servere depressed LVSF?: No IF NO, STOP HERE
== END 2024-09-20 15:30 | disposition home or self-care (01) | DRG 177 ==
LOC: ANHED 20:55 → ANH2MED 21:32
PROVIDERS: Internal Medicine Nephrology; Admitting Provider General Practice; Emergency Provider Physician Assistant; PCP Family Medicine; Visit Provider Student in an Organized Health Care Education/Training Program
DX: U07.1 COVID-19 (principal); G93.41 Metabolic encephalopathy; J96.01 Acute respiratory failure with hypoxia; N18.6 End stage renal disease; J18.9 Pneumonia, unspecified organism; N39.0 Urinary tract infection, site not specified; I13.2 Hypertensive heart and chronic kidney disease with heart failure and with stage 5 chronic kidney disease, or end stage renal disease; I50.32 Chronic diastolic (congestive) heart failure; R41.4 Neurologic neglect syndrome; I69.351 Hemiplegia and hemiparesis following cerebral infarction affecting right dominant side; J44.0 Chronic obstructive pulmonary disease with (acute) lower respiratory infection; E11.22 Type 2 diabetes mellitus with diabetic chronic kidney disease; M17.0 Bilateral primary osteoarthritis of knee; N25.0 Renal osteodystrophy; I48.0 Paroxysmal atrial fibrillation; G47.33 Obstructive sleep apnea (adult) (pediatric); E03.9 Hypothyroidism, unspecified; F41.1 Generalized anxiety disorder; E11.65 Type 2 diabetes mellitus with hyperglycemia; K21.9 Gastro-esophageal reflux disease without esophagitis; E11.42 Type 2 diabetes mellitus with diabetic polyneuropathy; I25.10 Atherosclerotic heart disease of native coronary artery without angina pectoris; Z91.199 Patient's noncompliance with other medical treatment and regimen due to unspecified reason; Z99.81 Dependence on supplemental oxygen; Z99.2 Dependence on renal dialysis; Z79.01 Long term (current) use of anticoagulants; Z79.4 Long term (current) use of insulin; I69.320 Aphasia following cerebral infarction; Z90.49 Acquired absence of other specified parts of digestive tract; Z87.891 Personal history of nicotine dependence
CPT/HCPCS: 36415; 70450; 70551; 71045; 80053; 81001; 82140; 82607; 82746; 82948; 83540; 83550; 83605; 83735; 84100; 84443; 85025; 85027; 85610; 85730; 86706; 87040; 87086; 87340; 87637; 87641; 93005; 94618; 94640; 94762; 96365; 96367; 96375; 97161; 97165; 99285; A9270; G0257; G0378; J0248; J0696; J1100; J1815; J7030; Q5105

== ENCOUNTER 2024-10-09 16:34 | Outpatient (CLI) | payer MEDICARE, SELFPAY ==
--- OUTSIDE RECORDS SUMMARY | 2024-10-09 16:37 | XMS_ITS | Clinical Summary ---
Author Organization [facility] Address [address] [place] [address] Care Team Providers Care Glue Machine Operator Name Role Phone Mona Currie MD PhD Unavailable [phone] Sammy Shepard MD Unavailable [phone] Rikki Amezquita MD Primary Care Provider Allergies Active Allergy Reactions Criticality Noted Date Comments Diphenhydramine Other (See comments) Low Restless leg Nickel Rash Medium Nifedipine Chest tightness Medium Pidbmck-Rlt-Qpg Reductase Inhibitors Muscle pain Medium Sulfa Hives [...] tablet (20 mg total) nightly Active banana hywuzp-JZY-ljb er 5 gram-45 kcal/60 mL liquid in [...] per tube 1 tablet (200 mcg total) programmer or analyst before breakfast 4 Active Additional Information [...] 04/13/2024 Assessment & Plan (04/28/2024 2:26 PM COST CONSULTANT): Stable on room air, continue trelegy, spiriva, prn duonebs Assessment & Plan (04/13/2024 12:50 PM COST CONSULTANT): Stable on room air, continue trelegy, spiriva, [...] 02/26/2024 Assessment & Plan (04/28/2024 2:29 PM COST CONSULTANT): Hb 9-10 at baseline, stable, continue epogen [...] 01/25/2024 Assessment & Plan (04/28/2024 2:25 PM COST CONSULTANT): Tube removed, keep healing stoma clean, dry, covered. F/u with PCP Assessment & Plan (04/13/2024 12:46 PM COST CONSULTANT): Recently pulled out by patient, surgical site is healing, continue to clean daily and cover with dry gauze Assessment & Plan (04/09/2024 1:53 PM COST CONSULTANT): Ok to keep tube out, cover area daily with dry gauze until healed, notify provider for change in condition or sx of dysphagia Assessment & Plan (04/06/2024 8:05 PM COST CONSULTANT): Now tolerating PO, likely could permanently DC soon, continue with h2o flushes for now Assessment & Plan (03/15/2024 10:55 AM COST CONSULTANT): Continue to flush q.i.d., able to tolerate food by mouth, CHEESE SUPERVISOR following Assessment & Plan (03/06/2024 9:49 PM [...] on imaging, continue nepro at 40ml/hr with CHEESE SUPERVISOR following for repeat swallow studies Hyperkalemia 01/18/2024 Assessment & Plan (01/18/2024 7:41 AM CDT): Improved after treatment at the hospital. Continue to monitor with dialysis. 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 01/18/2024 Assessment & Plan (04/28/2024 2:31 PM COST CONSULTANT): Has some improvement with therapy but remains weak with hemiparesis and aphasia, requires full care for all ADLs, unable to reposition self and will require electric hospital bed at home, ongoing PT/OT Contonie asa, statin, eliquis Heart healthy diet with exercise as tolerated Maintain BP and glycemic control F/u PCP Assessment & Plan (04/13/2024 12:49 PM COST CONSULTANT): Deficits improving have seem to stabilize now ambulatory with walker and gait belt, tolerating PO, speech garbled, continue statin, eliquis, heart healthy diet with exercise as tolerated; may need to transfer to LTC vs home with home health and family to care Assessment & Plan (04/09/2024 1:53 PM COST CONSULTANT): Deficits improving, now ambulatory with walker and gait belt, tolerating PO, speech remains garbled, continue statin, eliquis, heart healthy diet with exercise as tolerated Assessment & Plan (04/06/2024 8:08 PM COST CONSULTANT): Improving with therapies, now ambulatory and tolerating PO, speech remains garbled, continue statin, eliquis, heart healthy diet with exercise as tolerated Assessment & Plan (03/31/2024 2:26 PM COST CONSULTANT): Speech and mobility improving, now ambulatory with walker and gait belt. Continue PT/OT/CHEESE SUPERVISOR, continue statin and Eliquis, maintain BP and glycemic control Assessment & Plan (03/20/2024 8:07 PM COST CONSULTANT): Improving with therapy, continue statin and Eliquis, maintain BP and glycemic control. Continue PT OT, CHEESE SUPERVISOR, remains a fall risk F/u with neurology as scheduled, plans to DC home with Assessment & Plan (03/15/2024 10:51 AM COST CONSULTANT): Improving with therapy, continue statin and Eliquis, maintain BP and glycemic control. Continue PT OT, CHEESE SUPERVISOR, remains a fall risk Assessment & Plan (03/06/2024 9:49 PM CDT): Stable, improving with therapies, continue statin, eliquis, PT/OT/CHEESE SUPERVISOR, supportive care, continue to advance diet as tolerated Assessment & Plan (02/27/2024 3:02 PM CDT): Stable, improving with therapies, continue statin, eliquis, PT/OT/CHEESE SUPERVISOR, supportive care with plans to DC home following rehab stay Assessment & Plan (02/20/2024 1:56 PM CDT): Deficits improving with therapy, continue statin and eliquis, PT/OT/CHEESE SUPERVISOR with video swallow scheduled Continue bID zyprexa 2.5mg for now, may tolerate GDR at subsequent visit Assessment & Plan (02/19/2024 10:51 AM CDT): Improving with therapy, no recurrent episodes of agitation since starting BID zyprexa, continue statin and eliquis, PT/OT/CHEESE SUPERVISOR with video swallow scheduled Assessment & Plan (02/11/2024 1:32 PM CDT): Improving, continue statin and eliquis, PT/OT. CHEESE SUPERVISOR following for advancement of diet, will schedule Zyprexa 2.5mg HS rather than In am, conitnue supportive care, fall precautions Assessment & Plan (02/08/2024 3:56 PM CDT): Mobility and speech improving with intermittent agitation, fall risk, zyprexa increased to 2.5mg daily as unable to be redirected at times. Continue statin, eliquis, PT/TO/CHEESE SUPERVISOR, TF zainab per RD recs Assessment & Plan (02/03/2024 8:55 AM CDT): Mobility is improving, remains aphasic, able to follow simple commands and has spontaneous movements of all extremities; continue statin, eliquis, glycemic control, BP management, PT/OT/CHEESE SUPERVISOR Assessment & Plan (02/01/2024 9:33 AM CDT): Mobility is improving, intermittent anxiety, will need to monitor and provide supportive care, attempt to avoid benzos or antipsychotics although may need prn low dose meds due to fall risk and inability to be redirected; continue statin, eliquis, glycemic control, BP management, PT/OT/CHEESE SUPERVISOR Assessment & Plan (01/28/2024 2:35 PM CDT): [...] & Plan (01/25/2024 12:46 PM CDT): Ongoing PT/OT/CHEESE SUPERVISOR with generalized weakness, aphasia and R sided facial droop, follows some simple commands, continue statin and eliquis; monitor for fall risk given intermittent agitation; no new meds today but may need PRN due to fall risk Assessment & Plan (01/25/2024 11:13 AM CDT): Mobility is improving now at times getting out of bed without help, continue to monitor for fall risk, PT/OT/CHEESE SUPERVISOR; continue statin and eliquis Assessment & Plan (01/18/2024 5:52 PM CDT): Ongoing R sided weakness, R sided facial droop, aphasia; reports some improvement in spontaneous movement and mumbling. 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 Eliquis Assessment & Plan (03/20/2024 8:09 PM COST CONSULTANT): Stable on metoprolol, amiodarone and eliquis, conitnue [...] 10/06/2022 Assessment & Plan (04/28/2024 2:26 PM COST CONSULTANT): Continue treatments outpatient MWF, epogen on HD days, f/u with nephrology Assessment & Plan (04/09/2024 1:54 PM COST CONSULTANT): Tolerating HD MWF, at times using p.r.n. lorazepam with HD treatment, anxiety during access. Monitor electrolytes and weight Continue Epogen Assessment & Plan (04/06/2024 8:08 PM COST CONSULTANT): Continue HD MWF, p.r.n. lorazepam with HD treatment. Monitor electrolytes and weight Continue Epogen Assessment & Plan (03/31/2024 2:26 PM COST CONSULTANT): Continue HD MWF, continues to use p.r.n. lorazepam with HD treatments; daughter states this is helping,. Monitor electrolytes and weight Continue Epogen Assessment & Plan (03/20/2024 8:08 PM COST CONSULTANT): Continue HD MWF, continue to monitor electrolytes and weight, may use p.r.n. lorazepam with HD treatments; no reports of recent agitation with treatments Assessment & Plan (03/15/2024 10:52 AM COST CONSULTANT): Continue HD MWF, continue to monitor electrolytes [...] CDT): Receiving treatments MWF at [facility], intermittent anxiety, increase zyprexa to daily, [...] CDT): Continue treatments MWF at [facility], TID calcium acetate, nephrology following, nepro tube feeds ordered, starting on jevity on admission due to no nepro available Assessment & Plan (01/18/2024 7:41 AM CDT): Continue with dialysis 3 times a week. Continue calcium acetate. Labs with dialysis. Preoperative cardiovascular examination 09/20/19 22 Chronic heart failure with preserved ejection fr action 07/02/2019 Assessment & Plan (04/28/2024 2:26 PM COST CONSULTANT): Stable, continue metoprolol, monitor weights with HD Assessment & Plan (03/20/2024 8:08 PM COST CONSULTANT): Stable on exam, continue metoprolol, monitor I/O, [...] 02/04 Assessment & Plan (04/06/2024 8:06 PM COST CONSULTANT): Weight is stable since rehab admission, continue exercise as tolerated, RD following Assessment & Plan (03/20/2024 8:09 PM COST CONSULTANT): Mobility is improving, recently stopped TF and [...] 02/04 Assessment & Plan (04/13/2024 12:48 PM COST CONSULTANT): Stable/compensated, continue HD treatments, weekly weights, metoprolol, statin amio, eliquis Assessment & Plan (03/20/2024 8:08 PM COST CONSULTANT): Stable on metoprolol and amiodarone, continue HD [...] a associated with type 2 diabetes mellitus ([facility]) 05/20/2013 Overview (08/11/2016): DMII WO CMP UNCNTRLD Assessment & Plan (04/13/2024 12:48 PM COST CONSULTANT): Well controlled on lantus 18 units hs with mealtime SSI, continue accuchecks ac and hs Assessment & Plan (03/15/2024 10:54 AM COST CONSULTANT): Glucose logs reviewed continue lantus 18 units [...] NOS Assessment & Plan (04/28/2024 2:28 PM COST CONSULTANT): Continue Lantus 18 units HS with mealtime SSI and daughter will assist with med administration Bp stable on metoprolol, monitor for BP goal ,140/<90 Continue accuchecks ac and hs Assessment & Plan (03/31/2024 2:28 PM COST CONSULTANT): Continue Lantus 18 units HS with mealtime SSI, glucose 236 this a.m., evening glucose 170, continue diabetic diet. BP stable on metoprolol Assessment & Plan (03/15/2024 10:53 AM COST CONSULTANT): BP stable on metoprolol 50mg daily, continue [...] NOS Assessment & Plan (04/13/2024 12:51 PM COST CONSULTANT): Subclinical hypothyroidism with TSH trending up to 92, encourage appropriate administration of medication in early a.m. on empty stomach, Synthroid increased to 200 mcg daily at previous visit with plan to repeat ths in 6 weeks, T3 and T4 normal Assessment & Plan (03/31/2024 2:30 PM COST CONSULTANT): Subclinical hypothyroidism with TSH trending up to 92, encourage appropriate administration of medication in early a.m. on empty stomach, Synthroid increased to 200 mcg daily Assessment & Plan (03/20/2024 8:09 PM COST CONSULTANT): Inpatient workup with Tsh elevated with normal t4, ensure medication administration appropriate early am on empty stomach; repeat TSH this week Assessment & Plan (03/15/2024 10:54 AM COST CONSULTANT): Inpatient workup with Tsh elevated with normal [...] on room air to complete PO abx, CHEESE SUPERVISOR to follow, DC on prn duonebs, likely [...] drink = 0.6 oz pur e alcohol) [facility] Utilities Answer Date Recorded In the past 12 months has th e [employer], gas, oil, or water [employer] threatened to shut off services in your [...] often do you attend chur ch or mormonism services? Never 02/26/2024 Do you belong to any clubs o r organizations such as temple groups, unions, fraternal or athletic groups, or [...] place to sleep or slept in a long term (including now)? No 05/13/2021 Housing Stability Vital Sign Answer Yonathan e Recorded In the last 12 months, was t here a time when you were not able to pay the mortgage or rent on time? No 02/26/2024 In the past 12 months, how m any times have you moved where you were living? 0 02/26/2024 At any time in the past 12 m [facility], were you homeless or living in a long term (including now)? No 02/26/2024 Personal Safety Answer Date Recorded Have you ever been in or are you currently in a harmful physical or emotional relationship or is someone making you feel afraid or unsafe? Denies 02/25/2024 Comments No Sex and Gender Information Value Date Recorded Sex Assigned at Not on file Legal Sex Female 10:22 AM COST CONSULTANT Gender Identity Not on file Sexual Orientation Not on file Obstetrics History Last Filed Vital Signs Vital Sign Reading Time Taken Comments Blood Pressure 120/66 07/01/2024 9:38 AM COST CONSULTANT Pulse 55 07/01/2024 9:38 AM COST CONSULTANT Temperature 36.5 C (97.7 F) 03/03/2024 11:40 AM CDT Respiratory Rate 22 03/05/2024 8:3 1 AM CDT Oxygen Saturation 97% 07/01/2024 9:38 AM COST CONSULTANT Inhaled Oxygen Concentration - - Weight 89.7 kg (197 lb 11.2 oz) 07/01/2024 9:38 AM COST CONSULTANT Height 162.6 cm (5' 4) 07/01/2024 9:38 AM COST CONSULTANT Body Mass Index 33.94 07/01/2024 9:38 AM COST CONSULTANT Plan of Treatment Health Maintenance Due Date [...] Screening 05/10/2022 05/10/2021 Hemoglobin A1C 08/27/2024 02/27/2024, 0 09/2021, 10/25/2018, Additional history exists Influenza Vaccine (Season Ended) 2025 03/07/2022, 02/04/2021, 02/17/2018, Additional history exists Fall Risk Assessment 03/03/2025 03/03/2024, 09/20/19 22 eGFR 03/03/2025 03/03/2024, 02/05, 02/27/2024, Additional history exists Lipid Panel 07/01/2025 07/01/2024, 060 06/2022, 05/11/2021, Additional history exists Hepatitis C Screening Completed 05/08/2022 Hepatitis B Screening Completed 02/26/2024 Procedures Procedure Name Priority Date/Time Associated Diagnosis Comments POCT LIPID PANEL Routine 07/01/2024 9:57 AM COST CONSULTANT Need for lipid screening EGFR Routine 03/03/2024 6:45 AM CDT HEMOGLOBIN A1C Routine 02/27/2024 5:59 AM CDT HEPATITIS PANEL, ACUTE STAT 05/08/2022 3:59 PM COST CONSULTANT from Last 3 Months or Most Recently Relevant to Health Maintenance Results * POCT lipid panel (07/01/2024 9:57 AM COST CONSULTANT) Cholesterol, POC 138 mg/dL Comment:GLU = 176 HDL, POC 17 mg/dL Triglycerides, POC 168 mg/dL LDL Cholesterol POC 88 mg/dL Chol/HDL Ratio, POC 5.2 Non-HDL Cholesterol, POC 121 mg/dL Cholesterol Total, POC 138 mg/dL Capillary blood 07/01/2024 9 :57 AM COST CONSULTANT us Uriel Gillette MD POINT OF CARE [...] LAB BLOOD ORDERABLES Final Resu lt [facility] Department [place] [address] * (ABNORMAL) Hemoglobin A1c (02/27/2024 5:59 AM CDT) [facility] Hgb A1C 7.5(H) 4.0 - 5.6 % Estimated Average Glucose 169 mg/dL [facility] Comment: The ADA recommends reporting an estimated Average Glucose (eAG) with all Hemoglobin A1c results using the equation derived from a study of 507 normal and diabetic adults. Minority populations were underrepresented and children were not included. (Diabetes Care 31:5462-5985, 2008). The eAG is not equivalent to a fasting glucose. Blood 02/27/2024 5:59 AM CDT 02/27/2024 7:11 AM CDT us Asif Delgadillo MD LAB BLOOD ORDERABLES Final Re sult Performing Organization Address [facility] Co de Phone Number [place] [address] [facility] [place] [address] * Hepatitis panel, acute (05/08/2022 3:59 PM COST CONSULTANT) [facility] Hep A IgM Nonreactive Nonreactive [facility] Comment: Interpretive Data: If Hep A IgM Ab is reported as Equivocal, a new sample should be drawn in two weeks for testing. Current interpretive data was last revised on 19. Hep B core IgM Nonreactive Nonreactive [facility] Comment: Interpretive Data If HepB Core IgM Ab is reported as Equivocal, a new sample should be drawn in two weeks for testing. Current interpretive data was last revised on 19. Hep C Ab Nonreactive Nonreactive [facility] Comment: Interpretive Data Nonreactive: Antibodies [...] revised on 2019. HepBsAg Nonreactive Nonreactive [facility] Blood 05/08/2022 3:59 PM COST CONSULTANT 05/08/2022 3:59 PM COST CONSULTANT Mellissa Garcia DO LAB MICROBIOLOGY - GENERAL ORD ERABLES Final Result [facility] [address] Department [place] [address] from Last 3 Months or Most Recently Relevant to Health Maintenance Insurance MEDICARE [facility] MEDICARE [facility] MEDICARE SUPPLEMENT Advance Directives For more information, please contact: [phone] Documents on File Type Date Recorded Patient Program Technician Expl anation ADVANCE DIRECTIVE 03/04/2024 10:[address] - Phys Order for PT Preferences * Full Code (Latest Code Status on File) Date Activated Date Inactivated Comments 02/25/2024 5:55 PM 03/03/2024 4:42 PM * Full Code Date Activated Date Inactivated Comments 05/11/2021 3:52 AM 05/14/2021 8:52 PM Care Teams Glue Machine Operator Relationship Specialty Start Date End Date Rikki Amezquita MD [address] [facility] [address] [place] [address] PCP - General Family Medicine 07/01/24 Mona Currie MD PhD Medical Oncologist/Edge Trimmer Mechanic Medical Oncology 01/07/21 Sammy Shepard MD Consulting Physician Nephrology 05/14/21
--- OUTSIDE RECORDS SUMMARY | 2024-10-09 16:37 | XMS_ITS ---
Author Organization [facility] Address [address] [place] [address] Care Team Providers Care Baked And Graphite Inspector Name Role Phone Mona Currie MD PhD Unavailable [phone] Sammy Shepard MD Unavailable [phone] Rikki Amezquita MD Primary Care Provider Dialysis Access Sites Type Status Location Placement Date Removal Da te Hemodialysis AV Access Upper arm Active Left Upper Arm - Anterior Procedures Procedure Name Priority Date/Time Associated Diagnosis Comments POCT LIPID PANEL Routine 07/01/2024 9:57 AM [facility] Need for lipid screening EGFR Routine 03/03/2024 6:45 AM CDT HEMOGLOBIN A1C Routine 02/27/2024 5:59 AM CDT HEPATITIS PANEL, ACUTE STAT 05/08/2022 3:59 PM [facility] from Last 3 Months or Most Recently Relevant to Health Maintenance Allergies Active Allergy Reactions Criticality Noted Date Comments Diphenhydramine Other (See comments) Low Restless leg Nickel Rash Medium Nifedipine Chest tightness Medium Ovfaepd-Cck-Idt Reductase Inhibitors Muscle pain Medium Sulfa Hives [...] tablet (20 mg total) nightly Active banana ulsjep-FQJ-hle er 5 gram-45 kcal/60 mL liquid in [...] per tube 1 tablet (200 mcg total) enrollment clerk before breakfast 4 Active Additional Information Patient [...] 04/13/2024 Assessment & Plan (04/28/2024 2:26 PM [facility] [employer] [facility]): Stable on room air, continue trelegy, spiriva, prn duonebs Assessment & Plan (04/13/2024 12:50 PM [facility] [employer]): Stable on room air, continue trelegy, spiriva, [...] 02/26/2024 Assessment & Plan (04/28/2024 2:29 PM [facility] [employer] [facility]): Hb 9-10 at baseline, stable, continue epogen [...] 01/25/2024 Assessment & Plan (04/28/2024 2:25 PM [facility] [employer] [facility]): Tube removed, keep healing stoma clean, dry, covered. F/u with PCP Assessment & Plan (04/13/2024 12:46 PM [facility] [employer] [facility]): Recently pulled out by patient, surgical site is healing, continue to clean daily and cover with dry gauze Assessment & Plan (04/09/2024 1:53 PM [facility] [employer] [facility]): Ok to keep tube out, cover area daily with dry gauze until healed, notify provider for change in condition or sx of dysphagia Assessment & Plan (04/06/2024 8:05 PM [facility] [employer]): Now tolerating PO, likely could permanently DC soon, continue with h2o flushes for now Assessment & Plan (03/15/2024 10:55 AM [employer] [employer]ER): Continue to flush q.i.d., able to tolerate food by mouth, PHOTOGRAMMETRIC TECH following Assessment & Plan (03/06/2024 9:49 PM [...] on imaging, continue nepro at 40ml/hr with PHOTOGRAMMETRIC TECH following for repeat swallow studies Hyperkalemia 01/18/2024 Assessment & Plan (01/18/2024 7:41 AM CDT): Improved after treatment at the hospital. Continue to monitor with dialysis. 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 01/18/2024 Assessment & Plan (04/28/2024 2:31 PM [facility] [employer] [facility]): Has some improvement with therapy but remains weak with hemiparesis and aphasia, requires full care for all ADLs, unable to reposition self and will require electric hospital bed at home, ongoing PT/OT Contonie asa, statin, eliquis Heart healthy diet with exercise as tolerated Maintain BP and glycemic control F/u PCP Assessment & Plan (04/13/2024 12:49 PM [facility] [employer]): Deficits improving have seem to stabilize now ambulatory with walker and gait belt, tolerating PO, speech garbled, continue statin, eliquis, heart healthy diet with exercise as tolerated; may need to transfer to LTC vs home with home health and family to care Assessment & Plan (04/09/2024 1:53 PM [facility] [employer]): Deficits improving, now ambulatory with walker and gait belt, tolerating PO, speech remains garbled, continue statin, eliquis, heart healthy diet with exercise as tolerated Assessment & Plan (04/06/2024 8:08 PM [facility] [employer] [facility]): Improving with therapies, now ambulatory and tolerating PO, speech remains garbled, continue statin, eliquis, heart healthy diet with exercise as tolerated Assessment & Plan (03/31/2024 2:26 PM [facility] [employer] [facility]): Speech and mobility improving, now ambulatory with walker and gait belt. Continue PT/OT/PHOTOGRAMMETRIC TECH, continue statin and Eliquis, maintain BP and glycemic control Assessment & Plan (03/20/2024 8:07 PM [facility] [employer] [facility]): Improving with therapy, continue statin and Eliquis, maintain BP and glycemic control. Continue PT OT, PHOTOGRAMMETRIC TECH, remains a fall risk F/u with neurology as scheduled, plans to DC home with Assessment & Plan (03/15/2024 10:51 AM [facility] [employer] [facility]): Improving with therapy, continue statin and Eliquis, maintain BP and glycemic control. Continue PT OT, PHOTOGRAMMETRIC TECH, remains a fall risk Assessment & Plan (03/06/2024 9:49 PM CDT): Stable, improving with therapies, continue statin, eliquis, PT/OT/PHOTOGRAMMETRIC TECH, supportive care, continue to advance diet as tolerated Assessment & Plan (02/27/2024 3:02 PM CDT): Stable, improving with therapies, continue statin, eliquis, PT/OT/PHOTOGRAMMETRIC TECH, supportive care with plans to DC home following rehab stay Assessment & Plan (02/20/2024 1:56 PM CDT): Deficits improving with therapy, continue statin and eliquis, PT/OT/PHOTOGRAMMETRIC TECH with video swallow scheduled Continue bID zyprexa 2.5mg for now, may tolerate GDR at subsequent visit Assessment & Plan (02/19/2024 10:51 AM CDT): Improving with therapy, no recurrent episodes of agitation since starting BID zyprexa, continue statin and eliquis, PT/OT/PHOTOGRAMMETRIC TECH with video swallow scheduled Assessment & Plan (02/11/2024 1:32 PM CDT): Improving, continue statin and eliquis, PT/OT. PHOTOGRAMMETRIC TECH following for advancement of diet, will schedule Zyprexa 2.5mg HS rather than In am, conitnue supportive care, fall precautions Assessment & Plan (02/08/2024 3:56 PM CDT): Mobility and speech improving with intermittent agitation, fall risk, zyprexa increased to 2.5mg daily as unable to be redirected at times. Continue statin, eliquis, PT/TO/PHOTOGRAMMETRIC TECH, TF nepro per RD recs Assessment & Plan (02/03/2024 8:55 AM CDT): Mobility is improving, remains aphasic, able to follow simple commands and has spontaneous movements of all extremities; continue statin, eliquis, glycemic control, BP management, PT/OT/PHOTOGRAMMETRIC TECH Assessment & Plan (02/01/2024 9:33 AM CDT): Mobility is improving, intermittent anxiety, will need to monitor and provide supportive care, attempt to avoid benzos or antipsychotics although may need prn low dose meds due to fall risk and inability to be redirected; continue statin, eliquis, glycemic control, BP management, PT/OT/PHOTOGRAMMETRIC TECH Assessment & Plan (01/28/2024 2:35 PM CDT): [...] & Plan (01/25/2024 12:46 PM CDT): Ongoing PT/OT/PHOTOGRAMMETRIC TECH with generalized weakness, aphasia and R sided facial droop, follows some simple commands, continue statin and eliquis; monitor for fall risk given intermittent agitation; no new meds today but may need PRN due to fall risk Assessment & Plan (01/25/2024 11:13 AM CDT): Mobility is improving now at times getting out of bed without help, continue to monitor for fall risk, PT/OT/PHOTOGRAMMETRIC TECH; continue statin and eliquis Assessment & Plan (01/18/2024 5:52 PM CDT): Ongoing R sided weakness, R sided facial droop, aphasia; reports some improvement in spontaneous movement and mumbling. Continue asa, statin, eliquis; of note has documented statin intolerance, will need to find out specifics Continue PT/OT PHOTOGRAMMETRIC TECH , tube feeds for now with plans for repeat video swallow Type 2 diabetes mellitus with renal complication 01/18/2024 Assessment & Plan (04/09/2024 1:54 PM [facility]): Glucose logs reviewed and stable, continue HS lantus and mealtime SSI, will try to DC SSI prior to DC home Assessment & Plan (04/06/2024 8:06 PM [facility]): Stable, continue HS lantus and mealtime SSI, [...] 04/11/2023 At risk for amiodarone toxicity with terminal gauger supervisor u se 10/06/2022 Chronic anticoagulation 10/06/2022 Paroxysmal atrial fibrillation 10/06/2022 Assessment & Plan (04/28/2024 2:28 PM [facility]): Rate controlled, continue metoprolol, amiodarone, eliquis F/u cardiology dr wiley Assessment & Plan (04/13/2024 12:46 PM [facility]): Rate controlled on exam; continue metoprolol, amiodarone, Eliquis ; no recent falls Assessment & Plan (04/06/2024 8:06 PM [facility]): Rate controlled; continue metoprolol, amiodarone, Eliquis Assessment & Plan (03/31/2024 2:29 PM [facility]): Rate controlled on metoprolol, amiodarone; continue b.i.d. Eliquis Assessment & Plan (03/20/2024 8:09 PM [facility]): Stable on metoprolol, amiodarone and eliquis, conitnue [...] 10/06/2022 Assessment & Plan (04/28/2024 2:26 PM [facility]): Continue treatments outpatient MWF, epogen on HD days, f/u with nephrology Assessment & Plan (04/09/2024 1:54 PM [facility]): Tolerating HD MWF, at times using p.r.n. lorazepam with HD treatment, anxiety during access. Monitor electrolytes and weight Continue Epogen Assessment & Plan (04/06/2024 8:08 PM [facility]): Continue HD MWF, p.r.n. lorazepam with HD treatment. Monitor electrolytes and weight Continue Epogen Assessment & Plan (03/31/2024 2:26 PM [facility]): Continue HD MWF, continues to use p.r.n. lorazepam with HD treatments; daughter states this is helping,. Monitor electrolytes and weight Continue Epogen Assessment & Plan (03/20/2024 8:08 PM [facility]): Continue HD MWF, continue to monitor electrolytes and weight, may use p.r.n. lorazepam with HD treatments; no reports of recent agitation with treatments Assessment & Plan (03/15/2024 10:52 AM [facility]): Continue HD MWF, continue to monitor electrolytes [...] 3:59 PM CDT): Receiving treatments MWF at [facility], intermittent anxiety, increase zyprexa to daily, [...] 5:55 PM CDT): Continue treatments MWF at [facility], TID calcium acetate, nephrology following, nepro tube feeds ordered, starting on jevity on admission due to no nepro available Assessment & Plan (01/18/2024 7:41 AM CDT): Continue with dialysis 3 times a week. Continue calcium acetate. Labs with dialysis. Preoperative cardiovascular examination 09/20/19 22 Chronic heart failure with preserved ejection fr action 07/02/2019 Assessment & Plan (04/28/2024 2:26 PM [facility]): Stable, continue metoprolol, monitor weights with HD Assessment & Plan (03/20/2024 8:08 PM [facility]): Stable on exam, continue metoprolol, monitor I/O, [...] 02/04 Assessment & Plan (04/06/2024 8:06 PM [facility]): Weight is stable since rehab admission, continue exercise as tolerated, RD following Assessment & Plan (03/20/2024 8:09 PM [facility]): Mobility is improving, recently stopped TF and [...] 02/04 Assessment & Plan (04/13/2024 12:48 PM [facility]ER): Stable/compensated, continue HD treatments, weekly weights, metoprolol, statin amio, eliquis Assessment & Plan (03/20/2024 8:08 PM [facility]): Stable on metoprolol and amiodarone, continue HD [...] a associated with type 2 diabetes mellitus ([facility]) 05/20/2013 Overview (08/11/2016): DMII WO CMP UNCNTRLD Assessment & Plan (04/13/2024 12:48 PM [facility]): Well controlled on lantus 18 units hs with mealtime SSI, continue accuchecks ac and hs Assessment & Plan (03/15/2024 10:54 AM [facility]): Glucose logs reviewed continue lantus 18 units [...] NOS Assessment & Plan (04/28/2024 2:28 PM [facility]): Continue Lantus 18 units HS with mealtime SSI and daughter will assist with med administration Bp stable on metoprolol, monitor for BP goal ,140/<90 Continue accuchecks ac and hs Assessment & Plan (03/31/2024 2:28 PM [facility]): Continue Lantus 18 units HS with mealtime SSI, glucose 236 this a.m., evening glucose 170, continue diabetic diet. BP stable on metoprolol Assessment & Plan (03/15/2024 10:53 AM W[facility] AND [facility]UER): BP stable on metoprolol 50mg daily, continue [...] NOS Assessment & Plan (04/13/2024 12:51 PM [facility]): Subclinical hypothyroidism with TSH trending up to 92, encourage appropriate administration of medication in early a.m. on empty stomach, Synthroid increased to 200 mcg daily at previous visit with plan to repeat ths in 6 weeks, T3 and T4 normal Assessment & Plan (03/31/2024 2:30 PM [facility] [employer] [facility]): Subclinical hypothyroidism with TSH trending up to 92, encourage appropriate administration of medication in early a.m. on empty stomach, Synthroid increased to 200 mcg daily Assessment & Plan (03/20/2024 8:09 PM [facility]): Inpatient workup with Tsh elevated with normal t4, ensure medication administration appropriate early am on empty stomach; repeat TSH this week Assessment & Plan (03/15/2024 10:54 AM [facility]): Inpatient workup with Tsh elevated with normal [...] drink = 0.6 oz pur e alcohol) [facility] Utilities Answer Date Recorded In the past 12 months has [employer], gas, oil, or water [employer] threatened to shut off services in your [...] often do you attend chur ch or roman catholic services? Never 02/26/2024 Do you belong to any clubs o r organizations such as advent groups, unions, fraternal or athletic groups, or [...] place to sleep or slept in a skilled nursing (including now)? No 05/13/2021 Housing Stability Vital Sign Answer Yonathan e Recorded In the last 12 months, was t here a time when you were not able to pay the mortgage or rent on time? No 02/26/2024 In the past 12 months, how m any times have you moved where you were living? 0 02/26/2024 At any time in the past 12 m [facility], were you homeless or living in a skilled nursing (including now)? No 02/26/2024 Personal Safety Answer Date Recorded Have you ever been in or are you currently in a harmful physical or emotional relationship or is someone making you feel afraid or unsafe? Denies 02/25/2024 Comments No Sex and Gender Information Value Date Recorded Sex Assigned at Not on file Legal Sex Female 10:22 AM [facility] Gender Identity Not on file Sexual Orientation Not on file Last Filed Vital Signs Vital Sign Reading Time Taken Comments Blood Pressure 120/66 07/01/2024 9:38 AM [facility] Pulse 55 07/01/2024 9:38 AM [facility] [employer] [facility] Temperature 36.5 C (97.7 F) 03/03/2024 11:40 AM CDT Respiratory Rate 22 03/05/2024 8:3 1 AM CDT Oxygen Saturation 97% 07/01/2024 9:38 AM [facility] Inhaled Oxygen Concentration - - Weight 89.7 kg (197 lb 11.2 oz) 07/01/2024 9:38 AM [facility] AND [facility]UER Height 162.6 cm (5' 4) 07/01/2024 9:38 AM [facility] AND GLUER Body Mass Index 33.94 07/01/2024 9:38 AM [facility] AND [facility]UER Results * POCT lipid panel (07/01/2024 9:57 AM [facility]) Cholesterol, POC 138 mg/dL Comment:GLU = 176 HDL, POC 17 mg/dL Triglycerides, POC 168 mg/dL LDL Cholesterol POC 88 mg/dL Chol/HDL Ratio, POC 5.2 Non-HDL Cholesterol, POC 121 mg/dL Cholesterol Total, POC 138 mg/dL Capillary blood 07/01/2024 9 :57 AM [facility] us Uriel Gillette MD POINT OF CARE [...] BLOOD ORDERABLES Final Resu lt [facility] [address] [facility] Department [place] [address] * (ABNORMAL) Hemoglobin A1c (02/27/2024 5:59 AM CDT) Hgb A1C 7.5(H) 4.0 - 5.6 % Estimated Average Glucose 169 mg/dL [facility] Comment: The ADA recommends reporting an estimated Average Glucose (eAG) with all Hemoglobin A1c results using the equation derived from a study of 507 normal and diabetic adults. Minority populations were underrepresented and children were not included. (Diabetes Care 31:3115-2160, 2008). The eAG is not equivalent to a fasting glucose. Blood 02/27/2024 5:59 AM CDT 02/27/2024 7:11 AM CDT Asif Delgadillo MD LAB BLOOD ORDERABLES Final Re sult Performing Organization Address City/[facility]/ZIP Co de Phone Number [facility] [address] [facility] [facility] Department [place] [address] * Hepatitis panel, acute (05/08/2022 3:59 PM [facility]) Hep A IgM Nonreactive Nonreactive [facility] Comment: Interpretive Data: If Hep A IgM Ab is reported as Equivocal, a new sample should be drawn in two weeks for testing. Current interpretive data was last revised on 19. Hep B core IgM Nonreactive Nonreactive [facility] Comment: Interpretive Data If HepB Core IgM Ab is reported as Equivocal, a new sample should be drawn in two weeks for testing. Current interpretive data was last revised on 19. Hep C Ab Nonreactive Nonreactive [facility] Comment: Interpretive Data Nonreactive: Antibodies [...] last revised on 2019. HepBsAg Nonreactive Nonreactive [facility] Blood 05/08/2022 3:59 PM [facility] 05/08/2022 3:59 PM [facility] Mellissa Garcia DO LAB MICROBIOLOGY - GENERAL ORD ERABLES Final Result Performing Organization Address City/[facility]/ZIP Co de Phone Number [facility] [address] Department [place] [address] from Last 3 Months or Most Recently Relevant to Health Maintenance
--- OUTSIDE RECORDS SUMMARY | 2024-10-09 16:37 | XMS_ITS | Clinical Summary ---
Author Organization [facility] Address [address] [place] [address] Care Team Providers Care Glassware Engraver Name Role Phone Family [facility] Rostovclaribel [...] Comments Blood Pressure 129/59 05/28/2022 8:00 AM SALES AGENT [employer] Pulse 76 05/28/2022 8:00 AM SALES AGENT [employer] Temperature 36.7 C (98 F) 05/28/2022 8:00 AM SALES AGENT [employer] Respiratory Rate 20 05/28/2022 8:00 AM SALES AGENT [employer] Oxygen Saturation 96% 05/28/2022 8:00 AM SALES AGENT [employer] Inhaled Oxygen Concentration - - Weight 111.6 kg (246 lb) 05/28/2022 6:37 AM SALES AGENT [employer] Height 162.6 cm (5' 4) 05/13/2022 5:19 PM SALES AGENT [employer] Body Mass Index 42.23 05/13/2022 5:19 PM SALES AGENT [employer] Plan of Treatment Health Maintenance Due Date [...] 6:45 PM 05/13/2022 6:03 PM Care Teams Glassware Engraver Relationship Specialty Start Date End Date Amezquita [facility] [address] [place] [address] PCP - General 05/14/22
--- OUTSIDE RECORDS SUMMARY | 2024-10-09 16:37 | XMS_ITS | Clinical Summary ---
Author Organization [facility] Address [address], [place] [address] Phone Care Team Providers Care Ripening Room Hand Name Role Phone Rikki Amezquita MD Primary Care Provider [phone] Allergies Active Allergy Reactions Criticality Noted Date [...] Ended) 2025 03/07/20, 02/04/2021 Insurance MEDICARE MEDICARE [facility] MEDICARE [facility] MEDICARE [facility] Member Subscriber Plan / Payer (Ef fective 2024-Present) Name:Gregoria Rae Relation to Subscriber:Self Name:Gregoria Rae Subscriber ID:Not on file Payer ID:[id number] Group ID:Not on file Type:Not on file Address: [place] [id number] Care Teams Ripening Room Hand Relationship Specialty Start Date End Date Rikki Amezquita MD [address] [facility] [address] [facility] [address] [place] [address] PCP - General Internal Medicine 03/07/22
--- OUTSIDE RECORDS SUMMARY | 2024-10-09 16:37 | XMS_ITS | Referral Summary ---
Author Organization [facility] Address [address] [place] [address] Care Team Providers Care Devulcanizer Tender Name Role Phone Mona Currie MD PhD Unavailable Sammy Shepard MD Unavailable [phone] Rikki Amezquita MD Primary Care Provider Allergies Active Allergy Reactions Criticality Noted Date Comments Diphenhydramine Other (See comments) Low Restless leg Nickel Rash Medium Nifedipine Chest tightness Medium Ztiwtlu-End-Ayo Reductase Inhibitors Muscle pain Medium Sulfa Hives [...] tablet (20 mg total) nightly Active banana wxcfpg-DPD-tpl er 5 gram-45 kcal/60 mL liquid in [...] per tube 1 tablet (200 mcg total) core analyst before breakfast 4 Active Additional Information [...] 04/13/2024 Assessment & Plan (04/28/2024 2:26 PM SENIOR CONTROLS TECHNICIAN): Stable on room air, continue trelegy, spiriva, prn duonebs Assessment & Plan (04/13/2024 12:50 PM SENIOR CONTROLS TECHNICIAN): Stable on room air, continue trelegy, spiriva, [...] 02/26/2024 Assessment & Plan (04/28/2024 2:29 PM SENIOR CONTROLS TECHNICIAN): Hb 9-10 at baseline, stable, continue epogen [...] 01/25/2024 Assessment & Plan (04/28/2024 2:25 PM SENIOR CONTROLS TECHNICIAN): Tube removed, keep healing stoma clean, dry, covered. F/u with PCP Assessment & Plan (04/13/2024 12:46 PM SENIOR CONTROLS TECHNICIAN): Recently pulled out by patient, surgical site is healing, continue to clean daily and cover with dry gauze Assessment & Plan (04/09/2024 1:53 PM SENIOR CONTROLS TECHNICIAN): Ok to keep tube out, cover area daily with dry gauze until healed, notify provider for change in condition or sx of dysphagia Assessment & Plan (04/06/2024 8:05 PM SENIOR CONTROLS TECHNICIAN): Now tolerating PO, likely could permanently DC soon, continue with h2o flushes for now Assessment & Plan (03/15/2024 10:55 AM SENIOR CONTROLS TECHNICIAN): Continue to flush q.i.d., able to tolerate food by mouth, AGENTS' RECORDS CLERK following Assessment & Plan (03/06/2024 9:49 PM [...] on imaging, continue nepro at 40ml/hr with AGENTS' RECORDS CLERK following for repeat swallow studies Hyperkalemia 01/18/2024 Assessment & Plan (01/18/2024 7:41 AM CDT): Improved after treatment at the hospital. Continue to monitor with dialysis. 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 01/18/2024 Assessment & Plan (04/28/2024 2:31 PM SENIOR CONTROLS TECHNICIAN): Has some improvement with therapy but remains weak with hemiparesis and aphasia, requires full care for all ADLs, unable to reposition self and will require electric hospital bed at home, ongoing PT/OT Contonie asa, statin, eliquis Heart healthy diet with exercise as tolerated Maintain BP and glycemic control F/u PCP Assessment & Plan (04/13/2024 12:49 PM SENIOR CONTROLS TECHNICIAN): Deficits improving have seem to stabilize now ambulatory with walker and gait belt, tolerating PO, speech garbled, continue statin, eliquis, heart healthy diet with exercise as tolerated; may need to transfer to LTC vs home with home health and family to care Assessment & Plan (04/09/2024 1:53 PM SENIOR CONTROLS TECHNICIAN): Deficits improving, now ambulatory with walker and gait belt, tolerating PO, speech remains garbled, continue statin, eliquis, heart healthy diet with exercise as tolerated Assessment & Plan (04/06/2024 8:08 PM SENIOR CONTROLS TECHNICIAN): Improving with therapies, now ambulatory and tolerating PO, speech remains garbled, continue statin, eliquis, heart healthy diet with exercise as tolerated Assessment & Plan (03/31/2024 2:26 PM SENIOR CONTROLS TECHNICIAN): Speech and mobility improving, now ambulatory with walker and gait belt. Continue PT/OT/AGENTS' RECORDS CLERK, continue statin and Eliquis, maintain BP and glycemic control Assessment & Plan (03/20/2024 8:07 PM SENIOR CONTROLS TECHNICIAN): Improving with therapy, continue statin and Eliquis, maintain BP and glycemic control. Continue PT OT, AGENTS' RECORDS CLERK, remains a fall risk F/u with neurology as scheduled, plans to DC home with Assessment & Plan (03/15/2024 10:51 AM SENIOR CONTROLS TECHNICIAN): Improving with therapy, continue statin and Eliquis, maintain BP and glycemic control. Continue PT OT, AGENTS' RECORDS CLERK, remains a fall risk Assessment & Plan (03/06/2024 9:49 PM CDT): Stable, improving with therapies, continue statin, eliquis, PT/OT/AGENTS' RECORDS CLERK, supportive care, continue to advance diet as tolerated Assessment & Plan (02/27/2024 3:02 PM CDT): Stable, improving with therapies, continue statin, eliquis, PT/OT/AGENTS' RECORDS CLERK, supportive care with plans to DC home following rehab stay Assessment & Plan (02/20/2024 1:56 PM CDT): Deficits improving with therapy, continue statin and eliquis, PT/OT/AGENTS' RECORDS CLERK with video swallow scheduled Continue bID zyprexa 2.5mg for now, may tolerate GDR at subsequent visit Assessment & Plan (02/19/2024 10:51 AM CDT): Improving with therapy, no recurrent episodes of agitation since starting BID zyprexa, continue statin and eliquis, PT/OT/AGENTS' RECORDS CLERK with video swallow scheduled Assessment & Plan (02/11/2024 1:32 PM CDT): Improving, continue statin and eliquis, PT/OT. AGENTS' RECORDS CLERK following for advancement of diet, will schedule Zyprexa 2.5mg HS rather than In am, conitnue supportive care, fall precautions Assessment & Plan (02/08/2024 3:56 PM CDT): Mobility and speech improving with intermittent agitation, fall risk, zyprexa increased to 2.5mg daily as unable to be redirected at times. Continue statin, eliquis, PT/TO/AGENTS' RECORDS CLERK, TF zainab per RD recs Assessment & Plan (02/03/2024 8:55 AM CDT): Mobility is improving, remains aphasic, able to follow simple commands and has spontaneous movements of all extremities; continue statin, eliquis, glycemic control, BP management, PT/OT/AGENTS' RECORDS CLERK Assessment & Plan (02/01/2024 9:33 AM CDT): Mobility is improving, intermittent anxiety, will need to monitor and provide supportive care, attempt to avoid benzos or antipsychotics although may need prn low dose meds due to fall risk and inability to be redirected; continue statin, eliquis, glycemic control, BP management, PT/OT/AGENTS' RECORDS CLERK Assessment & Plan (01/28/2024 2:35 PM CDT): [...] & Plan (01/25/2024 12:46 PM CDT): Ongoing PT/OT/AGENTS' RECORDS CLERK with generalized weakness, aphasia and R sided facial droop, follows some simple commands, continue statin and eliquis; monitor for fall risk given intermittent agitation; no new meds today but may need PRN due to fall risk Assessment & Plan (01/25/2024 11:13 AM CDT): Mobility is improving now at times getting out of bed without help, continue to monitor for fall risk, PT/OT/AGENTS' RECORDS CLERK; continue statin and eliquis Assessment & Plan (01/18/2024 5:52 PM CDT): Ongoing R sided weakness, R sided facial droop, aphasia; reports some improvement in spontaneous movement and mumbling. Continue asa, statin, eliquis; of note has documented statin intolerance, will need to find out specifics Continue PT/OT AGENTS' RECORDS CLERK , tube feeds for now with plans for repeat video swallow Type 2 diabetes mellitus with renal complication 01/18/2024 Assessment & Plan (04/09/2024 1:54 PM SENIOR CONTROLS TECHNICIAN): Glucose logs reviewed and stable, continue HS lantus and mealtime SSI, will try to DC SSI prior to DC home Assessment & Plan (04/06/2024 8:06 PM SENIOR CONTROLS TECHNICIAN): Stable, continue HS lantus and mealtime SSI, [...] 04/11/2023 At risk for amiodarone toxicity with salvage determiner u se 10/06/2022 Chronic anticoagulation 10/06/2022 Paroxysmal atrial fibrillation 10/06/2022 Assessment & Plan (04/28/2024 2:28 PM SENIOR CONTROLS TECHNICIAN): Rate controlled, continue metoprolol, amiodarone, eliquis F/u cardiology dr wiley Assessment & Plan (04/13/2024 12:46 PM SENIOR CONTROLS TECHNICIAN): Rate controlled on exam; continue metoprolol, amiodarone, Eliquis ; no recent falls Assessment & Plan (04/06/2024 8:06 PM SENIOR CONTROLS TECHNICIAN): Rate controlled; continue metoprolol, amiodarone, Eliquis Assessment & Plan (03/31/2024 2:29 PM SENIOR CONTROLS TECHNICIAN): Rate controlled on metoprolol, amiodarone; continue b.i.d. Eliquis Assessment & Plan (03/20/2024 8:09 PM SENIOR CONTROLS TECHNICIAN): Stable on metoprolol, amiodarone and eliquis, conitnue [...] 10/06/2022 Assessment & Plan (04/28/2024 2:26 PM SENIOR CONTROLS TECHNICIAN): Continue treatments outpatient MWF, epogen on HD days, f/u with nephrology Assessment & Plan (04/09/2024 1:54 PM SENIOR CONTROLS TECHNICIAN): Tolerating HD MWF, at times using p.r.n. lorazepam with HD treatment, anxiety during access. Monitor electrolytes and weight Continue Epogen Assessment & Plan (04/06/2024 8:08 PM SENIOR CONTROLS TECHNICIAN): Continue HD MWF, p.r.n. lorazepam with HD treatment. Monitor electrolytes and weight Continue Epogen Assessment & Plan (03/31/2024 2:26 PM SENIOR CONTROLS TECHNICIAN): Continue HD MWF, continues to use p.r.n. lorazepam with HD treatments; daughter states this is helping,. Monitor electrolytes and weight Continue Epogen Assessment & Plan (03/20/2024 8:08 PM SENIOR CONTROLS TECHNICIAN): Continue HD MWF, continue to monitor electrolytes and weight, may use p.r.n. lorazepam with HD treatments; no reports of recent agitation with treatments Assessment & Plan (03/15/2024 10:52 AM SENIOR CONTROLS TECHNICIAN): Continue HD MWF, continue to monitor electrolytes [...] 3:59 PM CDT): Receiving treatments MWF at [facility], intermittent anxiety, increase zyprexa to daily, [...] 5:55 PM CDT): Continue treatments MWF at [facility], TID calcium acetate, nephrology following, nepro tube feeds ordered, starting on jevity on admission due to no nepro available Assessment & Plan (01/18/2024 7:41 AM CDT): Continue with dialysis 3 times a week. Continue calcium acetate. Labs with dialysis. Preoperative cardiovascular examination 09/20/19 22 Chronic heart failure with preserved ejection fr action 07/02/2019 Assessment & Plan (04/28/2024 2:26 PM SENIOR CONTROLS TECHNICIAN): Stable, continue metoprolol, monitor weights with HD Assessment & Plan (03/20/2024 8:08 PM SENIOR CONTROLS TECHNICIAN): Stable on exam, continue metoprolol, monitor I/O, [...] 02/04 Assessment & Plan (04/06/2024 8:06 PM SENIOR CONTROLS TECHNICIAN): Weight is stable since rehab admission, continue exercise as tolerated, RD following Assessment & Plan (03/20/2024 8:09 PM SENIOR CONTROLS TECHNICIAN): Mobility is improving, recently stopped TF and [...] 02/04 Assessment & Plan (04/13/2024 12:48 PM SENIOR CONTROLS TECHNICIAN): Stable/compensated, continue HD treatments, weekly weights, metoprolol, statin amio, eliquis Assessment & Plan (03/20/2024 8:08 PM SENIOR CONTROLS TECHNICIAN): Stable on metoprolol and amiodarone, continue HD [...] a associated with type 2 diabetes mellitus ([facility]) 05/20/2013 Overview (08/11/2016): DMII WO CMP UNCNTRLD Assessment & Plan (04/13/2024 12:48 PM SENIOR CONTROLS TECHNICIAN): Well controlled on lantus 18 units hs with mealtime SSI, continue accuchecks ac and hs Assessment & Plan (03/15/2024 10:54 AM SENIOR CONTROLS TECHNICIAN): Glucose logs reviewed continue lantus 18 units [...] NOS Assessment & Plan (04/28/2024 2:28 PM SENIOR CONTROLS TECHNICIAN): Continue Lantus 18 units HS with mealtime SSI and daughter will assist with med administration Bp stable on metoprolol, monitor for BP goal ,140/<90 Continue accuchecks ac and hs Assessment & Plan (03/31/2024 2:28 PM SENIOR CONTROLS TECHNICIAN): Continue Lantus 18 units HS with mealtime SSI, glucose 236 this a.m., evening glucose 170, continue diabetic diet. BP stable on metoprolol Assessment & Plan (03/15/2024 10:53 AM SENIOR CONTROLS TECHNICIAN): BP stable on metoprolol 50mg daily, continue [...] NOS Assessment & Plan (04/13/2024 12:51 PM SENIOR CONTROLS TECHNICIAN): Subclinical hypothyroidism with TSH trending up to 92, encourage appropriate administration of medication in early a.m. on empty stomach, Synthroid increased to 200 mcg daily at previous visit with plan to repeat ths in 6 weeks, T3 and T4 normal Assessment & Plan (03/31/2024 2:30 PM SENIOR CONTROLS TECHNICIAN): Subclinical hypothyroidism with TSH trending up to 92, encourage appropriate administration of medication in early a.m. on empty stomach, Synthroid increased to 200 mcg daily Assessment & Plan (03/20/2024 8:09 PM SENIOR CONTROLS TECHNICIAN): Inpatient workup with Tsh elevated with normal t4, ensure medication administration appropriate early am on empty stomach; repeat TSH this week Assessment & Plan (03/15/2024 10:54 AM SENIOR CONTROLS TECHNICIAN): Inpatient workup with Tsh elevated with normal [...] on room air to complete PO abx, AGENTS' RECORDS CLERK to follow, DC on prn duonebs, likely [...] drink = 0.6 oz pur e alcohol) [facility] Utilities Answer Date Recorded In the past 12 months has e [employer], gas, oil, or water [employer] threatened to shut off services in your [...] often do you attend chur ch or hindu services? Never 02/26/2024 Do you belong to any clubs o r organizations such as zoroastrian groups, unions, fraternal or athletic groups, or [...] place to sleep or slept in a correction (including now)? No 05/13/2021 Housing Stability Vital [...] were you homeless or living in a correction (including now)? No 02/26/2024 Personal Safety Answer Date Recorded Have you ever been in or are you currently in a harmful physical or emotional relationship or is someone making you feel afraid or unsafe? Denies 02/25/2024 Comments No Sex and Gender Information Value Date Recorded Sex Assigned at Not on file Legal Sex Female 10:22 AM SENIOR CONTROLS TECHNICIAN Gender Identity Not on file Sexual Orientation Not on file Last Filed Vital Signs Vital Sign Reading Time Taken Comments Blood Pressure 120/66 07/01/2024 9:38 AM SENIOR CONTROLS TECHNICIAN Pulse 55 07/01/2024 9:38 AM SENIOR CONTROLS TECHNICIAN Temperature 36.5 C (97.7 F) 03/03/2024 11:40 AM CDT Respiratory Rate 22 03/05/2024 8:31 AM CDT Oxygen Saturation 97% 07/01/2024 9:38 AM SENIOR CONTROLS TECHNICIAN Inhaled Oxygen Concentration - - Weight 89.7 kg (197 lb 11.2 oz) 07/01/2024 9:38 AM SENIOR CONTROLS TECHNICIAN Height 162.6 cm (5' 4) 07/01/2024 9:38 AM SENIOR CONTROLS TECHNICIAN Body Mass Index 33.94 07/01/2024 9:38 AM SENIOR CONTROLS TECHNICIAN Plan of Treatment Not on file Procedures Procedure Name Priority Date/Time Associated Diagnosis Comments POCT LIPID PANEL Routine 07/01/2024 9:57 AM SENIOR CONTROLS TECHNICIAN Need for lipid screening EGFR Routine 03/03/2024 6:45 AM CDT HEMOGLOBIN A1C Routine 02/27/2024 5:59 AM CDT HEPATITIS PANEL, ACUTE STAT 05/08/2022 3:59 PM SENIOR CONTROLS TECHNICIAN from Last 3 Months or Most Recently Relevant to Health Maintenance Results * POCT lipid panel (07/01/2024 9:57 AM SENIOR CONTROLS TECHNICIAN) Cholesterol, POC 138 mg/dL Comment:GLU = 176 HDL, POC 17 mg/dL Triglycerides, POC 168 mg/dL LDL Cholesterol POC 88 mg/dL Chol/HDL Ratio, POC 5.2 Non-HDL Cholesterol, POC 121 mg/dL Cholesterol Total, POC 138 mg/dL Capillary blood 07/01/2024 9 :57 AM SENIOR CONTROLS TECHNICIAN us Uriel Gillette MD POINT OF CARE [...] ORDERABLES Final Resu lt Performing Organization Address [facility] de Phone Number [facility] [address] [facility] [place] [address] * (ABNORMAL) Hemoglobin A1c (02/27/2024 5:59 AM CDT) [facility] Hgb A1C 7.5(H) 4.0 - 5.6 % Estimated Average Glucose 169 mg/dL [facility] Comment: The ADA recommends reporting an estimated Average Glucose (eAG) with all Hemoglobin A1c results using the equation derived from a study of 507 normal and diabetic adults. Minority populations were underrepresented and children were not included. (Diabetes Care 31:5807-5785, 2008). The eAG is not equivalent to a fasting glucose. Blood 02/27/2024 5:59 AM CDT 02/27/2024 7:11 AM CDT Asif Delgadillo MD LAB BLOOD ORDERABLES Final Re sult Performing Organization Address [facility] de Phone Number [facility] [address] [facility] Department [place] [address] * Hepatitis panel, acute (05/08/2022 3:59 PM SENIOR CONTROLS TECHNICIAN) [facility] Hep A IgM Nonreactive Nonreactive [facility] Comment: Interpretive Data: If Hep A IgM Ab is reported as Equivocal, a new sample should be drawn in two weeks for testing. Current interpretive data was last revised on 19. Hep B core IgM Nonreactive Nonreactive [facility] Comment: Interpretive Data If HepB Core IgM Ab is reported as Equivocal, a new sample should be drawn in two weeks for testing. Current interpretive data was last revised on 19. Hep C Ab Nonreactive Nonreactive [facility] Comment: Interpretive Data Nonreactive: Antibodies to [...] revised on 2019. HepBsAg Nonreactive Nonreactive [facility] Blood 05/08/2022 3:59 PM SENIOR CONTROLS TECHNICIAN 05/08/2022 3:59 PM SENIOR CONTROLS TECHNICIAN Mellissa Garcia DO LAB MICROBIOLOGY - GENERAL ORD ERABLES Final Result [facility] [address] Department [place] [address] from Last 3 Months or Most Recently Relevant to Health Maintenance Insurance MEDICARE [facility] MEDICARE [facility] MEDICARE SUPPLEMENT Advance Directives For more information, please contact: [phone] Documents on File Type Date Recorded Patient Hatchery Attendant Expl anation ADVANCE DIRECTIVE 03/04/2024 10:[address] - Phys Order for PT Preferences * Full Code (Latest Code Status on File) Date Activated Date Inactivated Comments 02/25/2024 5:55 PM 03/03/2024 4:42 PM * Full Code Date Activated Date Inactivated Comments 05/11/2021 3:52 AM 05/14/2021 8:52 PM Care Teams Devulcanizer Tender Relationship Specialty Start Date End Date Rikki Amezquita MD [address] [facility] [address] [place] [id number] PCP - General Family Medicine 07/01/24 Mona Currie MD PhD Medical Oncologist/[employer] Worker Medical Oncology 01/07/21 Sammy Shepard MD Consulting Physician Nephrology 05/14/21
--- OUTSIDE RECORDS SUMMARY | 2024-10-09 16:37 | XMS_ITS | Encounter Summary ---
Author Organization [facility] Address [address] [place] [address] Care Team Providers Care Director Auto Name Role Phone Rikki Amezquita MD Primary Care Provider [phone] Reason for Referral * Radiology Services (Routine) - Open Specialty Diagnoses / Procedures Referred By Contac t Referred To Contact Vascular Lab Diagnoses ESRD (end stage renal disease) on dialysis (HCC) Procedures IR Angio [facility] Paul Chandler MD [address] [place] [address] [place] [id number] Phone: tel: fax: [facility] Services [address] [place] [address], [address] [place] [address] Phone: tel: fax: Referral ID Status Reason Start Date Expiration Date Visits Re quested Visits Authorized [id number] Open 10/01/2024 10/01/2025 1 1 Encounter Details Date Type Department Care Team (Late st Contact Info) Description 10/01/2024 Telephone [facility] Services [address] [place] [address], [address] [place] [address] Johana Kent, RN Social History Tobacco Use Types Packs/Day Years [...] Care Team (Late st Contact Info) Description 10/30/2024 10:30 AM CDT Appointment [facility] [address] [place] [address] Scheduled Orders Name Type Priority Associated Diagnoses Orde r Schedule IR Angio [facility] Imaging Routine ESRD (end stage renal disease) on dialysis (HCC) 1 Occurrences starting 10/01/2024 until 10/01/2025 documented as of this encounter Visit Diagnoses Diagnosis ESRD (end stage renal disease) on dialysis (HCC)- Primary End stage renal disease documented in this encounter Care Teams Director Auto Relationship Specialty Start Date End Date Rikki Amezquita MD [address] [place] [address] PCP - General 11/28/21 documented as of this encounter
--- OUTSIDE RECORDS SUMMARY | 2024-10-09 16:37 | XMS_ITS | Encounter Summary ---
Author Organization [facility] Address [address] [place] [address] Care Team Providers Care Filter Cloth Maker Name Role Phone Rikki Amezquita MD Primary Care Provider [phone] Encounter Details Date Type Department Care Team (Latest Contact Info) Description 05/13/2022 3:00 PM CONTROLS OPERATOR [employer] Hospital Encounter [address] [address] Allison Patrick MD [facility] [...] on one occasion? Never 10/05/2022 12:17 PM IRVINGT Camila Silva RN * Audit-C Score Answer Date of Assessment Author 1 10/05/2022 12:17 PM CDT Sana Silva RN documented as of this encounter Plan of Treatment Upcoming Encounters Date Type Department Care Team (Late st Contact Info) Description 10/30/2024 10:[address] [facility] Vascular Services [address] [place] [address], [place] [address] documented as of this encounter Visit Diagnoses Not on filedocumented in this encounter Additional Health Concerns Infection Onset Date Last Indicated Resolved Time CDIFF Under Investigation 05/23/2022 05/23/2022 8:26 AM CONTROLS OPERATOR [employer] COVID-19 Under Investigation 05/27/2022 05/27/2022 05/27/2022 11:54 PM CONTROLS OPERATOR [employer] documented as of this encounter Care Teams Filter Cloth Maker Relationship Specialty Start Date End Date Rikki Amezquita MD [address] [place] [address] PCP - General 11/28/21 documented as of this encounter
--- OUTSIDE RECORDS SUMMARY | 2024-10-09 16:38 | XMS_ITS | Clinical Summary ---
Author Organization [facility] embraase Address [address] [facility] [place] [address] Care Team Providers Care Quality Assurance/R&D Lab Technician Name Role Phone Rikki Amezquita MD Primary Care Provider [phone] Source Comments [facility] embraase,non-owned Affiliates and Associated Physician Practices is amultiple site organization consisting of ambulatory clinics and hospital sitesin [place], [place], [place] and [place]. This disclosure is being madepursuant to the Care Everywhere program and may not contain all information available regarding this patient. Last updated 18.[facility] Allergies Active Allergy Reactions Criticality Noted Date [...] fluticasone propionate (Flonase) 50 MCG/ACT nasal spray Outlook 2 (two) sprays into the nose once daily Active LORazepam (Ativan) 0.5 MG tablet 1 (one) tablet by Enteral route every 8 hours as needed Active nystatin (Mycostatin) 592894 UNIT/GM powder Apply 1 Application to affected area 2 times daily Active traZODone (Desyrel) 50 MG tablet Take 0.5 (one-half) tablet by mouth 2 times daily Active Active Problems Problem Noted Date Diagnosed Date Encounter regarding vascular access for dialysis for end-stage renal disease 01/22/2023 ESRD (end stage renal disease) 07/24/2022 Encounters Date Type Department Care Team Description 10/01/2024 Telephone [facility] [address] [facility] [address], [address] [place] [id number] Johana Kent RN from Last 3 Months Family History Medical History Relation Name Comments [...] Comments Blood Pressure 172/69 03/25/2024 3:30 PM ENTRY LEVEL MANAGER Pulse 55 03/25/2024 3:30 PM ENTRY LEVEL MANAGER Temperature 36.4 C (97.5 F) 03/25/2024 3:03 PM ENTRY LEVEL MANAGER Respiratory Rate 9 03/25/2024 3:30 PM ENTRY LEVEL MANAGER Oxygen Saturation 97% 03/25/2024 3:30 PM ENTRY LEVEL MANAGER Inhaled Oxygen Concentration 40% 04/12/2022 3 :16 PM ENTRY LEVEL MANAGER Weight 120.2 kg (265 lb) 10/31/2023 10:07 AM CDT Height 157.5 cm (5' 2) 10/31/2023 10:07 AM CDT Body Mass Index 48.47 10/31/2023 10:07 AM CDT Plan of Treatment Upcoming Encounters Date Type Department Care Team (Natacha st Contact Info) Description 10/30/2024 10:30 AM CDT Appointment [facility] [id number] [place] [address], [place] [id number] Health Maintenance Due Date Last Done Comments [...] 75+ series) 12/27/2023 COVID-19 VACCINE (2 - season) 2024 05/26/2020 DEPRESSION SCREENING 05/07/2024 INFLUENZA [...] age to complete this topic Insurance MEDICARE [facility] [address] [id number] MEDICARE Advance Directives * Full Code (Latest Code Status on File) Date Activated Date Inactivated Comments 05/14/2022 8:26 AM 05/28/2022 12:06 PM Care Teams Quality Assurance/R&D Lab Technician Relationship Specialty Start Date End Date Rikki Amezquita MD [address] [place] [address] PCP - General 11/28/21
--- OUTSIDE RECORDS SUMMARY | 2024-10-09 16:38 | XMS_ITS | Continuity of Care Document ---
Author Organization [email or web address] [facility] Address [address] [place] [address] [place] [id number] Phone Care Team Providers Care Credit Charge Authorizer Name Role Phone Mohsen Peña Unavailable Unavailable [...] Diagnoses Date Provider Providers Copied on Encounter [facility], [address] [place] [address] [address], [place], [place], [id number], [place] tel:[phone] [facility] No Information 1-201 0 Casey Connolly. [address] [place], [address], [place]. tel:[phone] Referring Provider: Mohsen Merlos, [address] [place], [address]. tel:[phone] [facility], [address], [place], [place], [address], [place] tel:[phone] [facility] No Information 8-201 0 Casey Connolly. [address] [place], [address], [place]. tel:[phone] Referring Provider: Mohsen Merlos, [address] [place], [address]. tel:[phone] [facility], [address] [place] [address] [address], [place], [place], [address], [place] tel:[phone] [facility] No Information 4-201 0 Casey Connolly. [address] [place], [address], [place]. tel:[phone] Referring Provider: Mohsen Merlos, [address] [place], [address]. tel:[phone] [facility], [address], [place], [place], [address], [place] tel:[phone] [facility] No Information September-0 3-201 0 Casey Connolly. [address] [place], [address], [place]. tel:[phone] Referring Provider: Mohsen Merlos, [address] [place], [address]. tel:[phone] [facility], [address] [place] [address] [address], [place], [place], [address], [place] tel:[phone] [facility] No Information Jul-0 1-201 0 Casey Connolly. [address] [place], [address], [place]. tel:[phone] Referring Provider: Mohsen Merlos, [address] [place], [address]. tel:[phone] [facility], [address], [place], [place], [address], [place] tel:[phone] [facility] No Information 5-201 0 Casey Connolly. [address] [place], [address], [place]. tel:[phone] Referring Provider: Mohsen Merlos, [address] [place], [place], [facility]. tel:[phone] [facility], [address] [place] [address] [address], [place], [place], [address], [place] tel:[phone] [facility] No Information Sep-1 4-200 9 Casey Connolly. [address] [place], [address], [place]. tel:[phone] Referring Provider: Mohsen Merlos, [address] [place], [address]. tel:[phone] [facility], [address], [place], [place], [address], [place] tel:[phone] [facility] No Information Aug-3 1-200 9 Casey Connolly. [address] [place], [address], [place]. tel:[phone] [facility], [address], [place], [place], [address], [place] tel:[phone] [facility] No Information Aug-2 7-200 9 Casey Connolly. [address] [place], [address], [place]. tel:[phone] [facility], [address], [place], [place], [address], [place] tel:[phone] [facility] No Information 9 Casey Connolly. [address] [place], [address], [place]. tel:[phone] Referring Provider: Mohsen Merlos, [address] [place], [address]. tel:[phone] Office [facility], [address], [place], [place], [address], [place] tel:[phone] [facility] No Information 9 Casey Connolly. [address] [place], [address], [place]. tel:[phone] Referring Provider: Nataly Summers, [address], [place], [address]. tel:[phone] [facility], [address], [place], [place], [address], [place] tel:[phone] [facility] No Information 0 200 9 Sheri Ingram. [address] , [address], [place], [address], [place]. tel:[phone] [facility], [address], [place], [place], [address], [place] tel:[phone] [facility] No Information 8 Sheri Rojas [address] , [address], [place], [address], [place]. tel:[phone] [facility], [address], [place], [place], [address], [place] tel:[phone] SEC [place] [facility] No Information Nov-0 8-200 7 Sheri Noblen. [address], [place], [address], [place]. tel:[phone] [facility], [address], [place], [place], [address], [place] tel:[phone] [facility] No Information Oct-2 5-200 7 Casey Connolly. [address] [place], [address], [place]. tel:[phone] Referring Provider: Mohsen Merlos, [address] [place], [address]. tel:[phone] [facility], [address], [place], [place], [address], [place] tel:[phone] [facility] No Information Sep-2 7-200 7 Casey Connolly. [address] [place], [address], [place]. tel:[phone] [facility], [address], [place], [place], [address], [place] tel:[phone] [facility] No Information Sep-2 4-200 7 Casey Connolly. [address] [place], [address], [place]. tel:[phone] [facility], [address], [place], [place], [address], [place] tel:[phone] [facility] No Information Sep-1 7-200 7 Casey Connolly. [address] [place], [address], [place]. tel:[phone] [facility], [address], [place], [place], [address], [place] tel:[phone] [facility] No Information Sep-1 3-200 7 Casey Connolly. [address] [place], [address], [place]. tel:[phone] Referring Provider: Nataly Summers, [address], [place], [facility]. tel:[phone] [facility], [address], [place], [place], [address], [place] tel:[phone] [facility] No Information Dec- 0-200 7 Sheri Rojas [address] , [address], [place], [facility], [place]. tel:[phone] [facility], [address], [place], [place], [address], [place] tel:[phone] [facility] No Information Nov-3 0-200 7 Casey Connolly. [address] [place], [place], [facility], [place]. tel:[phone] [facility], [address], [place], [place], [address], [place] tel:[phone] [facility] No Information Nov-2 0-200 7 Sheri Rojas [address] , [address], [place], [facility], [place]. tel:[phone] [facility], [address], [place], [place], [address], [place] tel:[phone] [facility] No Information 2-200 7 Sheri Rojas [address] , [address], [place], [facility], [place]. tel:[phone] [facility], [address], [place], [place], [address], [place] tel:[phone] [facility] No Information Nov-1 1-200 7 Sheri Rojas [address] , [address], [place], [facility], [place]. tel:[phone] [facility], [address], [place], [place], [address], [place] tel:[phone] [facility] No Information Sam-2 2-200 7 Sheri Ingram. [address] , [address], [place], [facility], [place]. tel:[phone] Referring Provider: Nataly Summers, [address], [place], [facility]. tel:[phone] [facility], [address], [place], [place], [address], [place] tel:[phone] [facility] No Information Oct-1 4-200 7 Sheri Ingram. [address] , [address], [place], [facility], [place]. tel:[phone] [facility], [address], [place], [place], [address], [place] tel:[phone] [facility] No Information Oct-1 3-200 7 Sheri Ingram. [address] , [address], [place], [facility], [place]. tel:[phone] [facility], [address], [place], [place], [address], [place] tel:[phone] [facility] No Information September-2 5-200 7 Sheri Ingram. [address] , [address], [place], [address], [place]. tel:[phone] Referring Provider: Nataly Summers, [address], [place], [facility]. tel:[phone] Office Consultation [facility], [address], [place], [place], [address], [place] tel:[phone] [facility] No Information Jul-2 6-200 7 Casey Connolly. [address] [place], [address], [place]. tel:[phone] Referring Provider: Nataly Summers, [address], [place], [facility]. tel:[phone] [facility], [address] [facility] [address], [place], [place], [address], [place] tel:[phone] [facility] No Information 7 Sheri Ignram. [address] [facility] [address] , [address], [place], [address], [place]. tel:[phone] Referring Provider: John Noe [facility] [address], [place], [address]. tel:[phone] Family History Family Member Type Diagnosis Age At Onset No Information Payers Payer name Insurance type Covered constitution party ID Authoriza brianna(s) [facility] [id number] Social History Type Description Quantity Date Captured [...]
[2024-10-09 17:00] LABS: Basophils Absolute Auto 0.1 K/mm3 (0.0-0.1); Basophils Percent Auto 0.8 % (0.2-1.2); Eosinophils Absolute Auto 0.4 K/mm3 (0-0.3); Hemoglobin 8.3 g/dL (12.0-15.0); Immature Granulocyte Absolute 0.03 K/mm3 (0.00-0.031); Immature Granulocyte Percent A 0.5 % (0-0.5); Lymphocytes Absolute Auto 1.42 K/mm3 (0.9-3.2); Lymphocytes Percent Auto 21.3 % (18.3-44.2); Mean Corpuscular HGB Conc 29.6 g/dl (32-36); Mean Corpuscular Hemoglobin 28.3 pg (26-34); Mean Corpuscular Volume 95.6 fl (80-100); Mean Platelet Volume 10.8 fl (7.4-10.4); Monocytes Absolute Auto 0.6 K/mm3 (0.1-0.6); Monocytes Percent Auto 8.7 % (2.6-8.5); Neutrophils Absolute Auto 4.2 K/mm3 (1.3-6.7); Neutrophils Percent Auto 62.7 % (45.5-73.1); Platelet Count Result 251 k/mm3 (150-375); Red Blood Count 2.93 M/mm3 (4.2-5.4); Red Cell Distribution Width 15.9 % (11.5-14.5); White Blood Count 6.7 K/mm3 (4.5-10.0)
[2024-10-09 17:29] LABS: Hypochromasia 1+; Platelet Estimate Adequate (Adequate); Schistocytes None Seen
[2024-10-09 22:00] LABS: Hemoglobin A1C 8.1 % (<5.7)
== END 2024-10-09 16:35 | disposition home or self-care (01) ==
PROVIDERS: PCP Family Medicine; Visit Provider Physician Assistant
DX: D64.9 Anemia, unspecified (principal); E11.9 Type 2 diabetes mellitus without complications; Z79.4 Long term (current) use of insulin
CPT/HCPCS: 36415; 83036; 85025

== ENCOUNTER 2025-01-25 15:32 | Emergency (ER) | payer MEDICARE, SELFPAY ==
--- NOTE | 2025-01-25 15:37 | ED.GENADULT ---
HPI - General Adult General Chief complaint: Urogenital-Female Stated complaint: urinary irritation/diarrhea Time Seen by Provider: 01/25/25 15:37 Source: patient Mode of arrival: ambulatory Limitations: no limitations History of Present Illness HPI narrative: 74-year-old female patient presents to the [facility] accompanied by her . states that he brought her in today because their daughter who is a nurse at [facility] is concerned that she has a UTI. When asking about what the symptoms are the patient is nonverbal due to a stroke from last year and the does not know any symptoms. They have attempted to try and call the daughter but she is not answering. denies being more confused than normal. Denies any urgency or frequency in urination that he is aware of. She does wear depends and could be possibly incontinent. Patient also complaining of a rash underneath the pannus area. There is complaints of some diarrhea for the past week however states she had a normal bowel movement today. Related Data Home Medications ?Medication ?Instructions ?Recorded ?Confirmed ?Last Taken ?Type insulin aspart U-100 100 unit/mL See Rx Instructions .Route .COMPLEX 05/20/24 12/23/24 Unknown History (3 mL) subcutaneous pen (Novolog FlexPen U-100 Insulin aspart) amiodarone 200 mg tablet 200 mg PO QAM 09/02/24 12/23/24 Unknown History insulin glargine 100 unit/mL (3 18 unit subcut QPM 09/02/24 12/23/24 Unknown History mL) subcutaneous pen (Lantus Solostar U-100 Insulin) ropinirole 2 mg tablet 0.5 mg PO Q12H 09/02/24 12/23/24 Unknown History levothyroxine 175 mcg tablet 200 mcg PO DAILY 09/17/24 12/23/24 Unknown History calcium acetate 667 mg tablet 667 mg PO ONCE 11/04/24 12/23/24 Unknown History Allergies Allergy/AdvReac Type Severity Reaction Status Date / Time nickel Allergy Intermediate hives and Verified 01/25/25 15:36 itchy rash Sulfa (Sulfonamide Allergy Intermediate Urticaria Verified 01/25/25 15:36 Antibiotics) and hives Calcium Channel Blocking AdvReac Intermediate STATES Verified 01/25/25 15:36 Agents-Dih CANNOT TAKE SINCE SHE HAS ASTHMA diphenhydramine AdvReac Intermediate restless Verified 01/25/25 15:36 legs nifedipine AdvReac Intermediate palpitation Verified 01/25/25 15:36 s Rbepzmr-ARC-IkG Reductase AdvReac Intermediate muscle Verified 01/25/25 15:36 Inhibitor (Nnbziys-Emf-Yeo cramps Reductase Inhibitor) Review of Systems Review of Systems: CONSTITUTIONAL: Denies fever, chills, or sweats. EYES: Denies visual changes, redness, or discharge. ENT: Denies rhinorrhea, congestion, sore throat, or otalgia. CARDIOVASCULAR: Denies chest pain, palpitations, or edema. RESPIRATORY: Denies cough or dyspnea. GASTROINTESTINAL: Denies abdominal pain, nausea, vomiting, or diarrhea. GENITOURINARY: Denies dysuria or hematuria. Per her daughter is concerned about UTI symptoms but unable to get a hold of the daughter and unable to identify any UTI symptoms at this time SKIN: Denies rash or itching. MUSCULOSKELETAL: Denies back pain, joint pain, or myalgia. NEUROLOGIC: Denies headache, numbness, or weakness. PSYCHIATRIC: Denies anxiety or depression. 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 Paroxysmal atrial fibrillation Bilateral primary osteoarthritis of knee Renal osteodystrophy DVT of lower extremity (deep venous thrombosis) Asthma-COPD overlap syndrome Left-sided cerebrovascular accident (CVA) (01/04/24) With residual left-sided visual neglect, profound expressive aphasia and right-sided hemiplegia ESRD on hemodialysis (02/17/22) Chronic anticoagulation Obstructive sleep apnea Hypothyroidism Insulin dependent type 2 diabetes mellitus Generalized anxiety disorder Chronic obstructive pulmonary disease Chronic diastolic (congestive) heart failure Coronary artery disease involving [place] heart without angina pectoris Depression GERD without esophagitis Peripheral polyneuropathy Surgical History Surgical History History of tracheostomy (04/24/22) With subsequent removal History of cataract extraction History of tonsillectomy History of cholecystectomy History of gastrostomy tube placement and removal Family History Family History Father Hypertension Family history of coronary artery disease Sibling Hypertension Family history of coronary artery disease Mother Cerebrovascular accident Other Asthma Depression Family history of Alzheimer's disease Family history of arthritis Family history of cardiovascular disease Family history of lymphoma Family history of obesity Family history of seizure disorder Social History Social History Social History: Surrogate medical decision maker: Anjum (spouse) or Gwen (daughter) Kyra. Code status: Full code. Smoking packs per day: 2 Smoking cigarettes per day: 40.0 Years smoked: 30 Smoking pack-years: 60.00 Smoking status: Former smoker Second hand tobacco smoke exposure: No Alcohol intake: never Alcohol use details: special occasions Substance use: former Substance use type: marijuana Last use: 01/05/23 Do You Feel Safe in your Home?: Yes Lack of Transportation: No Lack of Food: Never True Current Housing: I Have Housing Concerned About Future Housing: No Difficulty Paying Gas/Electric Bills: No Difficulty Paying for Meds: No Currently Unemployed: No Education: High School Diploma/GED Difficulty w/ Childcare or Family Care: No Living arrangements: with family Occupation/Education: retired Spiritual care concerns: No Comments At the time of my signature I agree with nursing past medical history, surgical, social, and family history. There is no relevant family history pertinent to the presenting complaint. Exam Narrative: GENERAL: Well-appearing, well-nourished, and in no acute distress. Patient arrives the wheelchair HEAD: Normocephalic, atraumatic. EYES: PERRLA and EOMI. ENT: Nares clear, no rhinorrhea or epistaxis. Mucous membranes moist. Bilateral TMs are clear no erythema foreign bodies canal. Posterior pharynx with no erythema, tonsillar enlargement. NECK: Supple. No lymphadenopathy CHEST: Clear to auscultation. No respiratory distress. HEART: Regular rate and rhythm. No murmur heard. Normal peripheral pulses. ABDOMEN: Soft, nontender, nondistended, normal active bowel sounds. EXTREMITIES: Normal range of motion. No edema. SKIN: Warm, dry, no rash. NEURO: No focal deficits. Alert and oriented x3. Course Course Level of Care: Express Care Visit Vital Signs Vital signs: Vital Signs Temperature 36.2 C L 01/25/25 15:45 Pulse Rate 55 L 01/25/25 15:45 Respiratory Rate 16 01/25/25 15:45 Blood Pressure 172/99 H 01/25/25 15:45 Pulse Oximetry 92 09/21/25 15:45 Oxygen Delivery Room Air 01/25/25 15:45 Temperature 36.2 C L 01/25/25 15:45 Pulse Rate 55 L 01/25/25 15:45 Respiratory Rate 16 01/25/25 15:45 Blood Pressure 172/99 H 01/25/25 15:45 Pulse Oximetry 92 01/25/25 15:45 Oxygen Delivery Room Air 01/25/25 15:45 Vital signs reviewed. The patient has been informed that they may have pre-hypertension or Hypertension based on a BP reading in the department. I recommend that the patient call the primary care provider listed on their discharge instructions or a physician of their choice this week to arrange follow up for further evaluation of possible pre-hypertension or Hypertension Transfer Transfered to: [facility] Transportation: BLS Transfer rationale: Further evaluation of possible UTI symptoms Accepting physician: Cyndi Wild ALLERGIST Medical Decision Making MDM Narrative Medical decision making narrative: Patient was assisted into the bathroom to attempt to get a urine specimen unable to obtain urine specimen at this time. Discussed with that since were unable to get a hold of the daughter to find out the urinary symptoms we were unable to get any kind of urines sample from her to evaluate and the patient is not able to express their symptoms I do believe that she will need to go to the ER to get a further workup including a possible catheterization of the urine to be tested. Discussed with him that we do not have those capabilities here. The is aware the plan of care at this time is in agreement. Differential Diagnosis Differential Diagnosis: Differential diagnosis: Uncomplicated lower UTI, uncomplicated UTI, pyelonephritis Vital Signs Vital Signs: Vital Signs Temperature 36.2 C L 01/25/25 15:45 Pulse Rate 55 L 01/25/25 15:45 Respiratory Rate 16 01/25/25 15:45 Blood Pressure 172/99 H 01/25/25 15:45 Pulse Oximetry 92 01/25/25 15:45 Oxygen Delivery Room Air 01/25/25 15:45 Temperature 36.2 C L 01/25/25 15:45 Pulse Rate 55 L 01/25/25 15:45 Respiratory Rate 16 01/25/25 15:45 Blood Pressure 172/99 H 01/25/25 15:45 Pulse Oximetry 92 01/25/25 15:45 Oxygen Delivery Room Air 01/25/25 15:45 Vital signs reviewed. The patient has been informed that they may have pre-hypertension or Hypertension based on a BP reading in the department. I recommend that the patient call the primary care provider listed on their discharge instructions or a physician of their choice this week to arrange follow up for further evaluation of possible pre-hypertension or Hypertension Critical Care Time Critical Care Time Critical Care Time: No Discharge Plan Discharge Clinical Impression: Dysuria, Rash Patient Disposition: Acute Care Hospital Condition: Stable Instructions: Antibiotic Form Patient Language: Other Prescriptions: No Action insulin aspart U-100 [Novolog FlexPen U-100 Insulin] 100 unit/mL (3 mL) insulin pen See Rx Instructions .ROUTE .COMPLEX MDD 60 Rx Instructions: sliding scale albuterol sulfate [Ventolin HFA] 90 mcg/actuation HFA aerosol inhaler See Rx Instructions .ROUTE .COMPLEX Qty: 18 6RF Dose Instruction: INHALE 2 PUFFS BY MOUTH 4 TIMES DAILY NEEDED FOR SHORTNESS OF BREATH OR WHEEZING. Rx Instructions: INHALE 2 PUFFS BY MOUTH 4 TIMES DAILY NEEDED FOR SHORTNESS OF BREATH OR WHEEZING. metoprolol succinate 50 mg tablet extended release 24 hr 50 mg PO QAM Qty: 90 0RF montelukast 10 mg tablet 10 mg PO DAILY Qty: 90 3RF calcium acetate 667 mg tablet 667 mg PO ONCE escitalopram oxalate [Lexapro] 5 mg tablet 5 mg PO DAILY Qty: 90 4RF amiodarone 200 mg tablet 200 mg PO QAM ropinirole 2 mg tablet 0.5 mg PO Q12H insulin glargine [Lantus Solostar U-100 Insulin] 100 unit/mL (3 mL) insulin pen 18 unit subcut QPM Rx Instructions: INJECT 18 UNITS UNDER THE SKIN AT BEDTIME levothyroxine 175 mcg tablet 200 mcg PO DAILY albuterol sulfate 2.5 mg /3 mL (0.083 %) solution for nebulization 2.5 mg inhalation Q4-6H PRN (Reason: shortness of breath or wheezing) Qty: 90 6RF budesonide-formoterol 160-4.5 mcg/actuation HFA aerosol inhaler 2 puff inhalation Q12H Qty: 10.2 6RF Eliquis 2.5 mg tablet See Rx Instructions PO .COMPLEX Qty: 180 2RF Dose Instruction: TAKE 1 TABLET TWICE DAILY Rx Instructions: TAKE 1 TABLET TWICE DAILY orally ; fluticasone propionate 50 mcg/actuation spray,suspension 2 spray intranasal DAILY PRN (Reason: nasal congestion) Qty: 16 2RF trazodone 50 mg tablet 50 mg PO QHS Qty: 30 5RF atorvastatin [Lipitor] 20 mg tablet 20 mg PO HS Qty: 90 1RF hydralazine 25 mg tablet 25 mg PO TID Qty: 270 0RF isosorbide mononitrate 30 mg tablet extended release 24 hr 30 mg PO DAILY Qty: 90 0RF lorazepam [Ativan] 0.5 mg tablet 0.5 mg PO DAILY PRN (Reason: anxiety) Qty: 30 0RF Follow-up/Referrals: Rikki Amezquita MD [Primary Care Provider, Family Practice] Time of Disposition: 16:23
[2025-01-25 15:45] VITALS: BP 172/99; PULSE 55; RESP 16; TEMP 36.2; O2SAT 92
== END 2025-01-25 16:21 | disposition short-term general hospital (02) ==
PROVIDERS: Emergency Provider Nurse Practitioner Family; PCP Family Medicine
DX: R30.0 Dysuria (principal); R21 Rash and other nonspecific skin eruption; I48.0 Paroxysmal atrial fibrillation; J44.9 Chronic obstructive pulmonary disease, unspecified; I69.351 Hemiplegia and hemiparesis following cerebral infarction affecting right dominant side; I69.320 Aphasia following cerebral infarction; I69.312 Visuospatial deficit and spatial neglect following cerebral infarction; Z86.718 Personal history of other venous thrombosis and embolism; E11.22 Type 2 diabetes mellitus with diabetic chronic kidney disease; N18.6 End stage renal disease; Z79.4 Long term (current) use of insulin; E03.9 Hypothyroidism, unspecified; E11.42 Type 2 diabetes mellitus with diabetic polyneuropathy; K21.9 Gastro-esophageal reflux disease without esophagitis; I25.10 Atherosclerotic heart disease of native coronary artery without angina pectoris; Z87.891 Personal history of nicotine dependence; F32.A Depression, unspecified; F41.1 Generalized anxiety disorder; Z79.01 Long term (current) use of anticoagulants
CPT/HCPCS: 99212; G0463

== ENCOUNTER 2025-01-25 16:47 | Emergency (ER) | payer MEDICARE, SELFPAY ==
--- OUTSIDE RECORDS SUMMARY | 2010-03-17 10:45 | XMS_ITS | Continuity of Care Document ---
Author Organization [facility] Address [address] Mens[address] [place] [phone] Phone Care Team Providers Care Featheredger And Reducer Machine Name Role Phone Mohsen Peña Unavailable Unavailable [...] Diagnoses Date Provider Providers Copied on Encounter [facility] [place], [address] [place] [address] [address], [place], [place], [address], [place] tel:[phone] SEC [facility] No Information 1-201 0 Casey Connolly. [address] [place], [address], [place]. tel:[phone] Referring Provider: Mohsen Merlos, [address] [place], [address]. tel:[phone] [facility] [place], [address], [place], [place], [address], [place] tel:[phone] SEC [facility] No Information 8-201 0 Casey Connolly. [address] [place], [address], [place]. tel:[phone] Referring Provider: Mohsen Merlos, [address] [place], [address]. tel:[phone] [facility], [address] [place] [address] [address], [place], [place], [address], [place] tel:[phone] SEC [facility] No Information 4-201 0 Casey Connolly. [address] [place], [address], [place]. tel:[phone] Referring Provider: Mohsen Merlos, [address] [place], [address]. tel:[phone] [facility], [address], [place], [place], [address], [place] tel:[phone] [facility] No Information September-0 3-201 0 Casey Connolly. [address] [place], [address], [place]. tel:[phone] Referring Provider: Mohsen Merlos, [address] [place], [address]. tel:[phone] [facility], [address] [place] [address] [address], [place], [place], [address], [place] tel:[phone] SEC [facility] No Information Jul-0 1-201 0 Casey Connolly. [address] [place], [address], [place]. tel:[phone] Referring Provider: Mohsen Merlos, [address] [place], [address]. tel:[phone] [facility] [place], [address], [place], [place], [address], [place] tel:[phone] [facility] No Information 5-201 0 Casey Connolly. [address] [place], [address], [place]. tel:[phone] Referring Provider: Mohsen Merlos, [address] [place], [place], [facility]. tel:[phone] [facility] [place], [address] [place] [address] [address], [place], [place], [address], [place] tel:[phone] [facility] No Information Sep-1 4-200 9 Casey Connolly. [address] [place], [address], [place]. tel:[phone] Referring Provider: Mohsen Merlos, [address] [place], [address]. tel:[phone] [facility] [place], [address], [place], [place], [address], [place] tel:[phone] [facility] No Information Aug-3 1-200 9 Casey Connolly. [address] [place], [address], [place]. tel:[phone] [facility] [place], [address], [place], [place], [address], [place] tel:[phone] [facility] No Information Aug-2 7-200 9 Casey Connolly. [address] [place], [address], [place]. tel:[phone] [facility] [place], [address], [place], [place], [address], [place] tel:[phone] [facility] No Information 9 Casey Connolly. [address] [place], [address], [place]. tel:[phone] Referring Provider: Mohsen Merlos, [address] [place], [address]. tel:[phone] Office [facility] [place], [address], [place], [place], [address], [place] tel:[phone] SEC [facility] No Information 9 Casey Connolly. [address] [place], [address], [place]. tel:[phone] Referring Provider: Nataly Summers, [address], [place], [address]. tel:[phone] [facility] [place], [address], [place], [place], [address], [place] tel:[phone] SEC [facility] No Information 0 200 9 Sheri Ingram. [address], [place], [address], [place]. tel:[phone] [facility] [place], [address], [place], [place], [address], [place] tel:[phone] SEC [facility] No Information 8 Sheri Rojas [address], [place], [address], [place]. tel:[phone] [facility] [place], [address], [place], [place], [address], [place] tel:[phone] SEC [place] [facility] No Information Nov-0 8-200 7 Sheri Noblen. [address], [place], [address], [place]. tel:[phone] [facility] [place], [address], [place], [place], [address], [place] tel:[phone] [facility] No Information Oct-2 5-200 7 Casey Connolly. [address] [place], [address], [place]. tel:[phone] Referring Provider: Mohsen Merlos, [address] [place], [address]. tel:[phone] [facility] [place], [address], [place], [place], [address], [place] tel:[phone] [facility] No Information Sep-2 7-200 7 Casey Connolly. [address] [place], [address], [place]. tel:[phone] [facility] [place], [address] [address], [place], [place], [address], [place] tel:[phone] SEC [facility] No Information Sep-2 4-200 7 Casey Connolly. [address] [place], [address], [place]. tel:[phone] [facility] [place], [address], [place], [place], [address], [place] tel:[phone] [facility] No Information Sep-1 7-200 7 Casey Connolly. [address] [place], [address], [place]. tel:[phone] [facility] [place], [address], [place], [place], [address], [place] tel:[phone] [facility] No Information Sep-1 3-200 7 Casey Connolly. [address] [place], [address], [place]. tel:[phone] Referring Provider: Nataly Summers, [address], [place], [facility]. tel:[phone] [facility] [place], [address], [place], [place], [address], [place] tel:[phone] SEC [facility] No Information Dec- 0-200 7 Sheri Rojas [address], [place], [facility], [place]. tel:[phone] [facility] [place], [address] [address], [place], [place], [address], [place] tel:[phone] [facility] No Information Nov-3 0-200 7 Casey Connolly. [address] [place], [facility], [place]. tel:[phone] [facility] [place], [address], [place], [place], [address], [place] tel:[phone] [facility] No Information Nov-2 0-200 7 Sheri Rojas [address], [place], [facility], [place]. tel:[phone] [facility] [place], [address], [place], [place], [address], [place] tel:[phone] SEC [facility] No Information 2-200 7 Sheri Rojas [address], [place], [facility], [place]. tel:[phone] [facility] [place], [address], [place], [place], [address], [place] tel:[phone] [facility] No Information Nov-1 1-200 7 Sheri Rojas [address], [place], [facility], [place]. tel:[phone] [facility] [place], [address], [place], [place], [address], [place] tel:[phone] [facility] No Information Sam-2 2-200 7 Sheri Ingram. [address], [place], [facility], [place]. tel:[phone] Referring Provider: Nataly Summers, [address], [place], [facility]. tel:[phone] [facility] [place], [address], [place], [place], [address], [place] tel:[phone] [facility] No Information Oct-1 4-200 7 Sheri Ingram. [address], [place], [facility], [place]. tel:[phone] [facility] [place], [address] [address], [place], [place], [address], [place] tel:[phone] [facility] No Information Oct-1 3-200 7 Sheri Ingram. [address], [place], [facility], [place]. tel:[phone] [facility] [place], [address], [place], [place], [address], [place] tel:[phone] [facility] No Information September-2 5-200 7 Sheri Ingram. [address], [place], [address], [place]. tel:[phone] Referring Provider: Nataly Summers, [address], [place], [facility]. tel:[phone] Office Consultation [facility] [place], [address], [place], [place], [address], [place] tel:[phone] [facility] No Information Jul-2 6-200 7 Casey Connolly. [address] [place], [address], [place]. tel:[phone] Referring Provider: Ntaaly Summers, [address], [place], [facility]. tel:[phone] [facility] [place], [address] [facility] [address], [place], [place], [address], [place] tel:[phone] [facility] No Information 7 Sheri Ingram. [address] [facility] , [address], [place], [address], [place]. tel:[phone] Referring Provider: John Noe [facility] [address], [place], [address]. tel:[phone] Family History Family Member Type Diagnosis Age At Onset No Information Payers Payer name Insurance type Covered democrat ID Authoriza brianna(s) Juan [facility] [id number] Social History Type Description Quantity Date Captured [...]
--- OUTSIDE RECORDS SUMMARY | 2025-01-25 16:49 | XMS_ITS | Clinical Summary ---
Author Organization [facility] Address [address] [place] [address] Care Team Providers Care Service Station Helper Name Role Phone Family [facility] Rostovclaribel [...] Comments Blood Pressure 129/59 05/28/2022 8:00 AM ACTUARIAL SCIENCE PROFESSOR Pulse 76 05/28/2022 8:00 AM ACTUARIAL SCIENCE PROFESSOR Temperature 36.7 C (98 F) 05/28/2022 8:00 AM ACTUARIAL SCIENCE PROFESSOR Respiratory Rate 20 05/28/2022 8:00 AM ACTUARIAL SCIENCE PROFESSOR Oxygen Saturation 96% 05/28/2022 8:00 AM ACTUARIAL SCIENCE PROFESSOR Inhaled Oxygen Concentration - - Weight 111.6 kg (246 lb) 05/28/2022 6:37 AM ACTUARIAL SCIENCE PROFESSOR Height 162.6 cm (5' 4) 05/13/2022 5:19 PM ACTUARIAL SCIENCE PROFESSOR Body Mass Index 42.23 05/13/2022 5:19 PM ACTUARIAL SCIENCE PROFESSOR Plan of Treatment Health Maintenance Due Date Last Done Comments Annual Visit Topic 1951 Hepatitis C Screening [...] 6:45 PM 05/13/2022 6:03 PM Care Teams Service Station Helper Relationship Specialty Start Date End Date Alirio [facility] [address] [place] [address] PCP - General 05/14/22
--- OUTSIDE RECORDS SUMMARY | 2025-01-25 16:49 | XMS_ITS | Clinical Summary ---
Author Organization [facility] Address [address] [place] [address] Care Team Providers Care Digital Content Specialist Name Role Phone Rikki Amezquita MD Primary Care Provider [phone] Source Comments [facility],non-owned Affiliates and Associated Physician Practices is amultiple site organization consisting of ambulatory clinics and hospital sitesin [place], [place], [place] and [place]. This disclosure is being madepursuant to the Care Everywhere program and may not contain all information available regarding this patient. Last updated 18.[facility] Allergies Active Allergy Reactions Criticality Noted Date [...] fluticasone propionate (Flonase) 50 MCG/ACT nasal spray [place] 2 (two) sprays into the nose once daily Active LORazepam (Ativan) 0.5 MG tablet 1 (one) tablet by Enteral route every 8 hours as needed Active nystatin (Mycostatin) 744272 UNIT/GM powder Apply 1 Application to affected area 2 times daily Active traZODone (Desyrel) 50 MG tablet Take 0.5 (one-half) tablet by mouth 2 times daily 4 Active Symbicort 160-4.5 MCG/ACT inhaler Inhale 1 (one) puff by mouth 2 times daily 5 Active Trelegy Ellipta 200-62.5-25 MCG/ACT inhaler Inhale 1 (one) puff by mouth once daily Active hydrALAZINE (Apresoline) 25 MG tablet Take 1 (one) tablet by mouth 3 times daily 5 Active Active Problems Problem Noted Date Diagnosed Date Encounter regarding vascular access for dialysis for end-stage renal disease 01/22/2023 ESRD (end stage renal disease) 07/24/2022 Encounters Date Type Department Care Team Description 10/30/2024 9:26 AM CDT - 10/30/2024 11:59 PM CDT Hospital Encounter [facility] Vascular Services [address] [place] [address], [place] [address] Fernando Couch MD Discharge Disposition: Home or Self Care from Last 3 Months Family History Medical [...] Sign Reading Time Taken Comments Blood Pressure 170/66 10/30/2024 10:30 AM CDT Pulse 59 10/30/2024 10:30 AM CDT Temperature 36.3 C (97.3 F) 10/30/2024 9:43 AM CDT Respiratory Rate 10 10/30/2024 10:30 AM CDT Oxygen Saturation 93% 10/30/2024 10:30 AM CDT Inhaled Oxygen Concentration 40% 04/12/2022 3 :16 PM 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 Weight 120.2 kg (265 lb) 10/30/2024 9:43 AM CDT Height 157.5 cm (5' 2) 10/30/2024 9:43 AM CDT Body Mass Index 48.47 10/30/2024 9:43 AM CDT Plan of Treatment Upcoming Encounters Date Type Department Care Team (Late st Contact Info) Description 03/03/2025 2:15 PM CDT Appointment [facility] Vascular Services [address] [place] [address], [address] [place] [address] Fernando Couch MD [address] [place] [address] Health Maintenance Due Date Last Done Comments BONE DENSITY TESTING 1950 MEDICARE AWV 12 MONTHS 1950 DTAP/TDAP/TD VACCINES (1 - Tdap) 12/27/1967 PNEUMOCOCCAL VACCINE 50+ (1 of 2 - PCV) 12/27/1967 HEPATITIS B VACCINE (1 of 3 - Risk Dialysis 4-dose series) 1968 ZOSTER VACCINE (1 of 2) 1998 Respiratory Syncytial Virus (RSV) Vaccine Pt: or over 60 yrs (1 - 1-dose 75+ series) 12/27/2023 DEPRESSION SCREENING 05/07/2024 COVID-19 VACCINE (2 - 2024- season) 2025 05/26/2020 INFLUENZA VACCINE (#1) 2025 03/07/2022, 2020 HEPATITIS C SCREENING Completed 03/03/2024 , 02/26/2024, [...] on patient's age to complete this topic Procedures Procedure Name Priority Date/Time Associated Diagnosis Comments CARDIAC RHYTHM STRIP ORDER 11/04/2024 4:04 PM CDT IR ANGIO AV SHUNT IMAGING Routine 10/30/2024 10:20 AM CDT ESRD (end stage renal disease) on dialysis (HCC) from Last 3 Months Results * CARDIAC RHYTHM STRIP ORDER (11/04/2024 4:04 PM CDT) Narrative 11/04/2024 4:04 PM CDT Ordered by an unspecified provider. us Scanned Document CARDIAC SERVICES ORDERABLES Fin al Result * IR Angio Av Shunt Imaging (10/30/2024 10:20 AM CDT) Anatomical Region Laterality Modality Lower Extremity, Upper Extremity, Chest X-Ray Angiography Narrative 10/30/2024 10:27 AM CDT Fernando Couch MD 10/30/2024 10:39 AM Interventional Radiology Post-Operative/Procedure Progress Notes Date: 10/30/2024 Surgeon: Fernando Couch MD Child Nutrition Manager: Staff Pre-Procedure diagnosis: ESRD, outflow vein stenosis Time out and final pre-procedure assessment completed immediately prior to start of procedure. Medications reviewed. Post-Procedure diagnosis: Same Anesthesia: Local and IV Sedation Technical Procedure Performed and Findings: Contrast: 15 ml Radiation dose: 9.4 mGy The fluoroscopy time has been recorded in the electronic medical record. SEDATION: Moderate IV conscious sedation was administered by Dr. Couch using 0.5 mg of Versed and 50 mcg of Fentanyl. The patient's airway and condition was evaluated immediately prior to sedation and/or analgesia. The patient was independently monitored by a registered nurse for 20 minutes using automated blood pressure, EKG and pulse oximetry. There were no complications. The risks, benefits and alternatives were discussed and informed consent was obtained. Prior to beginning the procedure, [place] Protocol was performed to confirm the patient's identity and the planned procedure. Maximum sterile barriers including cap, mask, hand hygiene, sterile gloves, sterile gown, large sterile drape and 2% chlorhexidine for cutaneous antisepsis were used. The skin over the left upper arm dialysis fistula was infiltrated with 1% lidocaine. The fistula was examined with ultrasound and an image of the patent vein was recorded. Using realtime ultrasound guidance a needle was advanced into the graft followed by placement of a 5 faroese catheter. Fluoroscopy was used for all catheter and guidewire manipulations. Multiple DSA images were obtained to visualize the dialysis access from the arterial anastomosis through the vena cava. Images of the dialysis access show significant stenosis of the distal outflow cephalic vein and cephalic arch, proximally 70- 80% stenosis with a focal high-grade 80- 90% stenosis within the cephalic arch. The flow within the fistula was somewhat sluggish. Reflux angiogram demonstrates a widely patent arterial anastomosis without stenosis or thrombus. After identifying a stenosis a 6 Fr sheath was placed. The stenosis of the distal cephalic outflow vein and cephalic arch were dilated using 7 mm x 40 mm diameter high pressure balloon. Repeat venography was performed. Given the cephalic arch stenosis was recalcitrant to the 7 mm x 40 mm balloon, the balloon was exchanged for a 7 mm x 20 mm balloon with specific focus on the stenotic segment. This was successful in dilating the focal stenosis. Post angioplasty images show a good response with a patent vein. At the end of the procedure manual pressure was held and hemostasis was achieved. Disposition: OPS Status: Stable Drain or Pack: None Additional information/Complications: None Estimated blood loss: negligible Specimen(s) removed: No Specimen Paul Chandler MD IR ORDERABLES Final Result from Last 3 Months Insurance MEDICARE ANTH MEDICARE [address] [id number] Advance Directives * Full Code (Latest Code Status on File) Date Activated Date Inactivated Comments 05/14/2022 8:26 AM 05/28/2022 12:06 PM Care Teams Digital Content Specialist Relationship Specialty Start Date End Date Rikki Amezquita MD [address] [place] [address] PCP - General 11/28/21
--- OUTSIDE RECORDS SUMMARY | 2025-01-25 16:49 | XMS_ITS | Patient Health Record ---
Author Organization [facility] [employer] Address [address] [place] [address] Care Team Providers Care Apartment Leasing Consultant Name Role Phone Nighat Live Unavailable [phone] Reason For Referral No Information Medications Medication SIG (Take, Route, Frequency, Duration) Notes Start Date End Date Status Potassium Chloride ER 10 MEQ Tablet Extended Release Oral Active Pravastatin Sodium 10 MG Tablet Oral Active Doxycycline Hyclate 100 MG Tablet Oral Active traMADol HCl 50 MG Tablet Oral Active Furosemide 40 MG Tablet Oral Active Itqjlhwd-Iqgkwjujd-A exameth [id number] Ointment Ophthalmic Active Sertraline HCl 50 MG Tablet Oral Active Montelukast Sodium 10 MG Tablet Oral Active Xanax 0.5 MG Tablet Oral Active Gabapentin 300 MG Capsule Oral Active Pantoprazole Sodium 40 MG Tablet Delayed Release Oral Active Clopidogrel Bisulfate 75 MG Tablet Oral Active clonazePAM 0.5 MG Tablet Oral Active Lantus SoloStar 100 UNIT/ML Solution Pen-injector Subcutaneous Active traZODone HCl 50 MG Tablet Oral Active Irbesartan-hydroCHLO ROthiazide 300-12.5 mg Tablet Oral Active Levemir FlexPen 100 unit/mL (3 mL) INSULIN PEN (ML) SUBCUTANEOUS *Reorder from [employer] for eRx and Interaction Alerts* Active Ventolin HFA 108 (90 Base) MCG/ACT Aerosol Solution Inhalation Active Fluconazole 150 MG Tablet Oral Active Fluticasone Propionate Diskus 50 MCG/ACT Aerosol Powder Breath Activated Inhalation *Reorder from [employer] for eRx and Interaction Alerts* Active Synthroid 200 MCG Tablet Oral Active Plan Of Treatment No Information
--- OUTSIDE RECORDS SUMMARY | 2025-01-25 16:49 | XMS_ITS | Clinical Summary ---
Author Organization [facility] Address [address] [address] Phone Care Team Providers Care Credit Operations Processor Name Role Phone Rikki Amezquita MD Primary Care Provider [phone] Allergies Active Allergy Reactions Criticality Noted Date [...] / Low and Medium Risk (1 of 2 - PCV) 1998 Influenza Vaccine (#1) 2025 03/07/2022, 2020 Insurance MEDICARE MEDICARE [facility] MEDICARE [facility] MEDICARE [facility] Member Subscriber Plan / Payer (Ef fective 2024-Present) Name:Gregoria Rae Relation to Subscriber:Self Name:Gregoria Rae Subscriber ID:Not on file Payer ID:[id number] Group ID:Not on file Type:Not on file Address: [place] [id number] Care Teams Credit Operations Processor Relationship Specialty Start Date End Date Rikki Amezquita MD [address] [facility] [address] [facility] [address] [place] [address] PCP - General Internal Medicine 03/07/22
--- OUTSIDE RECORDS SUMMARY | 2025-01-25 16:50 | XMS_ITS | Encounter Summary ---
Author Organization [facility] Address [address] [address] Care Team Providers Care Executive Vice President And Chief Operating Officer Name Role Phone Rikki Amezquita MD Primary Care Provider Reason for Referral * Radiology Services (Routine) - Closed Specialty Diagnoses / Procedures Referred By Contac t Referred To Contact Vascular Lab Diagnoses ESRD (end stage renal disease) on dialysis (HCC) Procedures IR Angio [facility] Paul Chandler MD [address] [place] [address] [place] [phone] Phone: tel: fax: [facility] [address] [place] [address], [address] [place] [address] Phone: tel: fax: Referral ID Status Reason Start Date Expiration Date Visits Re quested Visits Authorized [id number] Closed 10/01/2024 10/30/2024 1 1 Encounter Details Date Type Department Care Team (Late st Contact Info) Description 10/01/2024 Telephone [facility] [address] [place] [address], [address] [place] [address] Johana Kent, RN Social History [...] Info) Description 03/03/2025 2:15 PM CDT Appointment [facility] [address] [place] [address], [address] [place] [address] Fernando Couch MD [address] [place] [phone] documented as of this encounter Results * IR Angio [facility] (10/30/2024 10:20 AM CDT) Anatomical Region Laterality Modality Lower Extremity, Upper Extremity, Chest X-Ray Angiography Narrative 10/30/2024 10:27 AM CDT Fernando Couch MD 10/30/2024 10:39 AM Interventional Radiology Post-Operative/Procedure Progress Notes Date: 10/30/2024 Surgeon: Fernando Couch MD Battery Parts Assembler: Staff Pre-Procedure diagnosis: ESRD, outflow vein stenosis [...] obtained. Prior to beginning the procedure, [place] Protocol was performed to confirm the patient's [...] graft followed by placement of a 5 japanese catheter. Fluoroscopy was used for all catheter [...] Paul Chandler MD IR ORDERABLES Final Result documented in this encounter Visit Diagnoses Diagnosis ESRD (end stage renal disease) on dialysis (HCC)- Primary End stage renal disease ESRD (end stage renal disease) on dialysis (HCC) End stage renal disease documented in this encounter Care Teams Executive Vice President And Chief Operating Officer Relationship Specialty Start Date End Date Rikki Amezquita MD [address] [place] [address] PCP - General 11/28/21 documented as of this encounter
--- OUTSIDE RECORDS SUMMARY | 2025-01-25 16:50 | XMS_ITS | Patient Health Record ---
Author Organization [facility] Address [address] [place], [place] [address] Care Team Providers Care Sweet Potato Disintegrator Name Role Phone Brayan Amezquita Primary Care Provider Unavail able Sammy Shepard Unavailable [phone] Allergies No Known Allergies Reason For Referral [...] day Active Aldactone 25 MG 1 tablet Orally; Duration: 30 day(s) Unknown Gabapentin 600 MG 1 [...] Notes Problem Chronic kidney disease stage 2 (786371551) Chronic kidney disease (CKD), stage II (mild) (N18.2) Active confirmed Problem Essential hypertension (09758926) Benign essential HTN (I10) Active confirmed Problem 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 (183069877186246) 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) Active confirmed Problem Essential hypertension (12652363) Essential (primary) hypertension (I10) Active confirmed Problem Chronic kidney disease stage 3A (disorder) (420588473) Chronic kidney disease, stage 3a (N18.31) Active [...] Coverage End Date Medicare [place] [address] [address] [place] [address] [id number] Gregoria Rae Self - patient is the insured [facility] [address] [place] [address] [id number] Gregoria Rae Self - patient is the insured Medical (General) History Medical History History ICD Code restless leg syndrome DM HTN CKD Surgical History Surgery Date(Month/Year) thryoidectomy cholecystectomy
--- OUTSIDE RECORDS SUMMARY | 2025-01-25 16:50 | XMS_ITS ---
Author Organization [facility] Address [address] [place] [address] Care Team Providers Care Grinding Operator Name Role Phone Mona Currie MD PhD Unavailable [phone] Sammy Shepard MD Unavailable [phone] Rikki Amezquita MD Primary Care Provider Dialysis Access Sites Type Status Location Placement Date Removal Da te Hemodialysis AV Access Upper arm Active Left Upper Arm - Anterior Procedures Procedure Name Priority Date/Time Associated Diagnosis Comments POCT LIPID PANEL Routine 07/01/2024 9:57 AM LAW WRITER Need for lipid screening EGFR Routine 03/03/2024 6:45 AM CDT HEMOGLOBIN A1C Routine 02/27/2024 5:59 AM CDT HEPATITIS PANEL, ACUTE STAT 05/08/2022 3:59 PM LAW WRITER from Last 3 Months or Most Recently Relevant to Health Maintenance Allergies Active Allergy Reactions Criticality Noted Date Comments Diphenhydramine Other (See comments) Low Restless leg Nickel Rash Medium Nifedipine Chest tightness Medium Bryuhro-Mnm-Gzg Reductase Inhibitors Muscle pain Medium Sulfa Hives [...] tablet (20 mg total) nightly Active banana kxlfvh-NQT-wri er 5 gram-45 kcal/60 mL liquid in [...] per tube 1 tablet (200 mcg total) television host before breakfast 4 Active Additional Information Patient [...] 04/13/2024 Assessment & Plan (04/28/2024 2:26 PM LAW WRITER): Stable on room air, continue trelegy, spiriva, prn duonebs Assessment & Plan (04/13/2024 12:50 PM LAW WRITER): Stable on room air, continue trelegy, spiriva, [...] 02/26/2024 Assessment & Plan (04/28/2024 2:29 PM LAW WRITER): Hb 9-10 at baseline, stable, continue epogen [...] 01/25/2024 Assessment & Plan (04/28/2024 2:25 PM LAW WRITER): Tube removed, keep healing stoma clean, dry, covered. F/u with PCP Assessment & Plan (04/13/2024 12:46 PM LAW WRITER): Recently pulled out by patient, surgical site is healing, continue to clean daily and cover with dry gauze Assessment & Plan (04/09/2024 1:53 PM LAW WRITER): Ok to keep tube out, cover area daily with dry gauze until healed, notify provider for change in condition or sx of dysphagia Assessment & Plan (04/06/2024 8:05 PM LAW WRITER): Now tolerating PO, likely could permanently DC soon, continue with h2o flushes for now Assessment & Plan (03/15/2024 10:55 AM LAW WRITER): Continue to flush q.i.d., able to tolerate food by mouth, CONTENT WRITER following Assessment & Plan (03/06/2024 9:49 PM [...] on imaging, continue nepro at 40ml/hr with CONTENT WRITER following for repeat swallow studies Hyperkalemia 01/18/2024 Assessment & Plan (01/18/2024 7:41 AM CDT): Improved after treatment at the hospital. Continue to monitor with dialysis. 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 01/18/2024 Assessment & Plan (04/28/2024 2:31 PM LAW WRITER): Has some improvement with therapy but remains weak with hemiparesis and aphasia, requires full care for all ADLs, unable to reposition self and will require electric hospital bed at home, ongoing PT/OT Contonie asa, statin, eliquis Heart healthy diet with exercise as tolerated Maintain BP and glycemic control F/u PCP Assessment & Plan (04/13/2024 12:49 PM LAW WRITER): Deficits improving have seem to stabilize now ambulatory with walker and gait belt, tolerating PO, speech garbled, continue statin, eliquis, heart healthy diet with exercise as tolerated; may need to transfer to LTC vs home with home health and family to care Assessment & Plan (04/09/2024 1:53 PM LAW WRITER): Deficits improving, now ambulatory with walker and gait belt, tolerating PO, speech remains garbled, continue statin, eliquis, heart healthy diet with exercise as tolerated Assessment & Plan (04/06/2024 8:08 PM LAW WRITER): Improving with therapies, now ambulatory and tolerating PO, speech remains garbled, continue statin, eliquis, heart healthy diet with exercise as tolerated Assessment & Plan (03/31/2024 2:26 PM LAW WRITER): Speech and mobility improving, now ambulatory with walker and gait belt. Continue PT/OT/CONTENT WRITER, continue statin and Eliquis, maintain BP and glycemic control Assessment & Plan (03/20/2024 8:07 PM LAW WRITER): Improving with therapy, continue statin and Eliquis, maintain BP and glycemic control. Continue PT OT, CONTENT WRITER, remains a fall risk F/u with neurology as scheduled, plans to DC home with Assessment & Plan (03/15/2024 10:51 AM LAW WRITER): Improving with therapy, continue statin and Eliquis, maintain BP and glycemic control. Continue PT OT, CONTENT WRITER, remains a fall risk Assessment & Plan (03/06/2024 9:49 PM CDT): Stable, improving with therapies, continue statin, eliquis, PT/OT/CONTENT WRITER, supportive care, continue to advance diet as tolerated Assessment & Plan (02/27/2024 3:02 PM CDT): Stable, improving with therapies, continue statin, eliquis, PT/OT/CONTENT WRITER, supportive care with plans to DC home following rehab stay Assessment & Plan (02/20/2024 1:56 PM CDT): Deficits improving with therapy, continue statin and eliquis, PT/OT/CONTENT WRITER with video swallow scheduled Continue bID zyprexa 2.5mg for now, may tolerate GDR at subsequent visit Assessment & Plan (02/19/2024 10:51 AM CDT): Improving with therapy, no recurrent episodes of agitation since starting BID zyprexa, continue statin and eliquis, PT/OT/CONTENT WRITER with video swallow scheduled Assessment & Plan (02/11/2024 1:32 PM CDT): Improving, continue statin and eliquis, PT/OT. CONTENT WRITER following for advancement of diet, will schedule Zyprexa 2.5mg HS rather than In am, conitnue supportive care, fall precautions Assessment & Plan (02/08/2024 3:56 PM CDT): Mobility and speech improving with intermittent agitation, fall risk, zyprexa increased to 2.5mg daily as unable to be redirected at times. Continue statin, eliquis, PT/TO/CONTENT WRITER, TF nepro per RD recs Assessment & Plan (02/03/2024 8:55 AM CDT): Mobility is improving, remains aphasic, able to follow simple commands and has spontaneous movements of all extremities; continue statin, eliquis, glycemic control, BP management, PT/OT/CONTENT WRITER Assessment & Plan (02/01/2024 9:33 AM CDT): Mobility is improving, intermittent anxiety, will need to monitor and provide supportive care, attempt to avoid benzos or antipsychotics although may need prn low dose meds due to fall risk and inability to be redirected; continue statin, eliquis, glycemic control, BP management, PT/OT/CONTENT WRITER Assessment & Plan (01/28/2024 2:35 PM CDT): [...] & Plan (01/25/2024 12:46 PM CDT): Ongoing PT/OT/CONTENT WRITER with generalized weakness, aphasia and R sided facial droop, follows some simple commands, continue statin and eliquis; monitor for fall risk given intermittent agitation; no new meds today but may need PRN due to fall risk Assessment & Plan (01/25/2024 11:13 AM CDT): Mobility is improving now at times getting out of bed without help, continue to monitor for fall risk, PT/OT/CONTENT WRITER; continue statin and eliquis Assessment & Plan (01/18/2024 5:52 PM CDT): Ongoing R sided weakness, R sided facial droop, aphasia; reports some improvement in spontaneous movement and mumbling. Continue asa, statin, eliquis; of note has documented statin intolerance, will need to find out specifics Continue PT/OT CONTENT WRITER , tube feeds for now with plans for repeat video swallow Type 2 diabetes mellitus with renal complication 01/18/2024 Assessment & Plan (04/09/2024 1:54 PM LAW WRITER): Glucose logs reviewed and stable, continue HS lantus and mealtime SSI, will try to DC SSI prior to DC home Assessment & Plan (04/06/2024 8:06 PM LAW WRITER): Stable, continue HS lantus and mealtime SSI, [...] 04/11/2023 At risk for amiodarone toxicity with long term care administrator u se 10/06/2022 Chronic anticoagulation 10/06/2022 Paroxysmal atrial fibrillation 10/06/2022 Assessment & Plan (04/28/2024 2:28 PM LAW WRITER): Rate controlled, continue metoprolol, amiodarone, eliquis F/u cardiology dr wiley Assessment & Plan (04/13/2024 12:46 PM LAW WRITER): Rate controlled on exam; continue metoprolol, amiodarone, Eliquis ; no recent falls Assessment & Plan (04/06/2024 8:06 PM LAW WRITER): Rate controlled; continue metoprolol, amiodarone, Eliquis Assessment & Plan (03/31/2024 2:29 PM LAW WRITER): Rate controlled on metoprolol, amiodarone; continue b.i.d. Eliquis Assessment & Plan (03/20/2024 8:09 PM LAW WRITER): Stable on metoprolol, amiodarone and eliquis, conitnue [...] 10/06/2022 Assessment & Plan (04/28/2024 2:26 PM LAW WRITER): Continue treatments outpatient MWF, epogen on HD days, f/u with nephrology Assessment & Plan (04/09/2024 1:54 PM LAW WRITER): Tolerating HD MWF, at times using p.r.n. lorazepam with HD treatment, anxiety during access. Monitor electrolytes and weight Continue Epogen Assessment & Plan (04/06/2024 8:08 PM LAW WRITER): Continue HD MWF, p.r.n. lorazepam with HD treatment. Monitor electrolytes and weight Continue Epogen Assessment & Plan (03/31/2024 2:26 PM LAW WRITER): Continue HD MWF, continues to use p.r.n. lorazepam with HD treatments; daughter states this is helping,. Monitor electrolytes and weight Continue Epogen Assessment & Plan (03/20/2024 8:08 PM LAW WRITER): Continue HD MWF, continue to monitor electrolytes and weight, may use p.r.n. lorazepam with HD treatments; no reports of recent agitation with treatments Assessment & Plan (03/15/2024 10:52 AM LAW WRITER): Continue HD MWF, continue to monitor electrolytes [...] 3:59 PM CDT): Receiving treatments MWF at [facility], intermittent anxiety, increase zyprexa to [...] 5:55 PM CDT): Continue treatments MWF at [facility], TID calcium acetate, nephrology following, nepro tube feeds ordered, starting on jevity on admission due to no nepro available Assessment & Plan (01/18/2024 7:41 AM CDT): Continue with dialysis 3 times a week. Continue calcium acetate. Labs with dialysis. Preoperative cardiovascular examination 09/20/19 22 Chronic heart failure with preserved ejection fr action 07/02/2019 Assessment & Plan (04/28/2024 2:26 PM LAW WRITER): Stable, continue metoprolol, monitor weights with HD Assessment & Plan (03/20/2024 8:08 PM LAW WRITER): Stable on exam, continue metoprolol, monitor I/O, [...] 02/04 Assessment & Plan (04/06/2024 8:06 PM LAW WRITER): Weight is stable since rehab admission, continue exercise as tolerated, RD following Assessment & Plan (03/20/2024 8:09 PM LAW WRITER): Mobility is improving, recently stopped TF and [...] 02/04 Assessment & Plan (04/13/2024 12:48 PM LAW WRITER): Stable/compensated, continue HD treatments, weekly weights, metoprolol, statin amio, eliquis Assessment & Plan (03/20/2024 8:08 PM LAW WRITER): Stable on metoprolol and amiodarone, continue HD [...] a associated with type 2 diabetes mellitus ([facility]) 05/20/2013 Overview (08/11/2016): DMII WO CMP UNCNTRLD Assessment & Plan (04/13/2024 12:48 PM LAW WRITER): Well controlled on lantus 18 units hs with mealtime SSI, continue accuchecks ac and hs Assessment & Plan (03/15/2024 10:54 AM LAW WRITER): Glucose logs reviewed continue lantus 18 units [...] NOS Assessment & Plan (04/28/2024 2:28 PM LAW WRITER): Continue Lantus 18 units HS with mealtime SSI and daughter will assist with med administration Bp stable on metoprolol, monitor for BP goal ,140/<90 Continue accuchecks ac and hs Assessment & Plan (03/31/2024 2:28 PM LAW WRITER): Continue Lantus 18 units HS with mealtime SSI, glucose 236 this a.m., evening glucose 170, continue diabetic diet. BP stable on metoprolol Assessment & Plan (03/15/2024 10:53 AM LAW WRITER): BP stable on metoprolol 50mg daily, continue [...] NOS Assessment & Plan (04/13/2024 12:51 PM LAW WRITER): Subclinical hypothyroidism with TSH trending up to 92, encourage appropriate administration of medication in early a.m. on empty stomach, Synthroid increased to 200 mcg daily at previous visit with plan to repeat ths in 6 weeks, T3 and T4 normal Assessment & Plan (03/31/2024 2:30 PM LAW WRITER): Subclinical hypothyroidism with TSH trending up to 92, encourage appropriate administration of medication in early a.m. on empty stomach, Synthroid increased to 200 mcg daily Assessment & Plan (03/20/2024 8:09 PM LAW WRITER): Inpatient workup with Tsh elevated with normal t4, ensure medication administration appropriate early am on empty stomach; repeat TSH this week Assessment & Plan (03/15/2024 10:54 AM LAW WRITER): Inpatient workup with Tsh elevated with normal [...] drink = 0.6 oz pur e alcohol) [facility] Utilities Answer Date Recorded In the past 12 months has [employer], gas, oil, or water [email or web address] threatened to shut off services in your home? No 02/26/2024 Social Connection and Isolation Panel Answer Date Recorded In a typical week, how many times do you talk on the phone with family, friends, or neighbors? Three times a week 02/26/2024 How often do you get togethe r with friends or relatives? Three times a week 02/26/2024 How often do you attend chur ch or yazdanism services? Never 02/26/2024 Do you belong to any clubs o r organizations such as hinduism groups, unions, fraternal or athletic groups, or [...] any time in the past 12 [facility], were you homeless or living [...] on file Legal Sex Female 10:22 AM LAW WRITER Gender Identity Not on file Sexual Orientation Not on file Last Filed Vital Signs Vital Sign Reading Time Taken Comments Blood Pressure 120/66 07/01/2024 9:38 AM LAW WRITER Pulse 55 07/01/2024 9:38 AM LAW WRITER Temperature 36.5 C (97.7 F) 03/03/2024 11:40 AM CDT Respiratory Rate 22 03/05/2024 8:31 AM CDT Oxygen Saturation 97% 07/01/2024 9:38 AM LAW WRITER Inhaled Oxygen Concentration - - Weight 89.7 kg (197 lb 11.2 oz) 07/01/2024 9:38 AM LAW WRITER Height 162.6 cm (5' 4) 07/01/2024 9:38 AM LAW WRITER Body Mass Index 33.94 07/01/2024 9:38 AM LAW WRITER Results * POCT lipid panel (07/01/2024 9:57 AM LAW WRITER) Cholesterol, POC 138 mg/dL Comment:GLU = 176 HDL, POC 17 mg/dL Triglycerides, POC 168 mg/dL LDL Cholesterol POC 88 mg/dL Chol/HDL Ratio, POC 5.2 Non-HDL Cholesterol, POC 121 mg/dL Cholesterol Total, POC 138 mg/dL Capillary blood 07/01/2024 9 :57 AM LAW WRITER us Uriel Gillette MD POINT OF CARE [...] LAB BLOOD ORDERABLES Final Resu lt [facility] [address] [facility] Department [place] [address] * (ABNORMAL) Hemoglobin A1c (02/27/2024 5:59 AM CDT) Hgb A1C 7.5(H) 4.0 - 5.6 % Estimated Average Glucose 169 mg/dL [facility] Comment: The ADA recommends reporting an estimated Average Glucose (eAG) with all Hemoglobin A1c results using the equation derived from a study of 507 normal and diabetic adults. Minority populations were underrepresented and children were not included. (Diabetes Care 31:7928-1136, 2008). The eAG is not equivalent to a fasting glucose. Blood 02/27/2024 5:59 AM CDT 02/27/2024 7:11 AM CDT Asif Delgadillo MD LAB BLOOD ORDERABLES Final Re sult Performing Organization Address City/[facility]/ZIP Co de Phone Number [facility] [address] [facility] Department [place] [address] * Hepatitis panel, acute (05/08/2022 3:59 PM LAW WRITER) Hep A IgM Nonreactive Nonreactive [facility] Comment: Interpretive Data: If Hep A IgM Ab is reported as Equivocal, a new sample should be drawn in two weeks for testing. Current interpretive data was last revised on 19. Hep B core IgM Nonreactive Nonreactive [facility] Comment: Interpretive Data If HepB Core IgM Ab is reported as Equivocal, a new sample should be drawn in two weeks for testing. Current interpretive data was last revised on 19. Hep C Ab Nonreactive Nonreactive [facility] Comment: Interpretive Data Nonreactive: Antibodies [...] last revised on 2019. HepBsAg Nonreactive Nonreactive [facility] Blood 05/08/2022 3:59 PM LAW WRITER 05/08/2022 3:59 PM LAW WRITER us Mellissa Garcia DO LAB MICROBIOLOGY - GENERAL ORD ERABLES Final Result Performing Organization Address City/[facility]/ZIP Co de Phone Number [facility] [address] Department [place] [address] from Last 3 Months or Most Recently Relevant to Health Maintenance
--- OUTSIDE RECORDS SUMMARY | 2025-01-25 16:50 | XMS_ITS | Clinical Summary ---
Author Organization [facility] Address [address] [place] [address] Care Team Providers Care Supervisor Blood Donor Recruiters Name Role Phone Unavailable Primary Care Provider Unavailabl e Social History Tobacco Use Types Packs/Day Years Used Date Smoking Tobacco: Never Assessed Comments Unknown Sex and Gender Information Value Date Recorded Sex Assigned at Not on file Legal Sex Female 11:29 PM CDT Gender Identity Not on file Sexual Orientation Not on file Plan of Treatment Health Maintenance Due Date Last Done Comments Hepatitis C 1966 DTaP, Tdap and Td Vaccines ( 1 - Tdap) 12/27/1967 Pneumococcal Vaccine: 50+ Ye ars (1 of 1 - PCV) 1998 Zoster Vaccines (1 of 2) 1998 Dexa Scan (General) 2013 RSV Immunization or 60+ Years (1 - 1-dose 75+ series) 12/27/2023 COVID-19 Vaccine ( - 2023-2 5 season) 2025 Meningococcal B Vaccine Aged Out No l onger eligible based on patient's age to complete this topic Meningococcal Vaccine Aged Out No clarisa penelope eligible based on patient's age to complete this topic RSV Immunizations Under 20 Months Aged Out No longer eligible based on patient's age to complete this topic
--- OUTSIDE RECORDS SUMMARY | 2025-01-25 16:50 | XMS_ITS | Clinical Summary ---
Author Organization [facility] Camille rowland [facility] Address [address] [facility] [place] [address] Care Team Providers Care Bevel Gear Generator Operator Name Role Phone Unavailable Primary Care Provider Unavailabl e Social History Tobacco Use Types Packs/Day Years Used Date Smoking Tobacco: Never Assessed Comments Unknown Sex and Gender Information Value Date Recorded Sex Assigned at Not on file Legal Sex Female 1:55 PM CDT Gender Identity Not on file Sexual Orientation Not on file Plan of Treatment Upcoming Encounters Date Type Department Care Team (Late st Contact Info) Description 02/16/2025 3:00 PM CDT Office Visit [facility] Oncology and Hematology - [place] [address] [facility] [address] [place] [address] Jose Alejandro Anthony MD [address] [facility] [address] [place] [address] Health Maintenance Due Date Last Done Comments DTAP/TDAP/TD VACCINES (1 - Tdap) 12/27/1969 PNEUMOCOCCAL VACCINE 50+ YEARS (1 of 1 - PCV) 12/26/18 99 ZOSTER VACCINE (1 of 2) 1998 OSTEOPOROSIS SCREENING 2013 RSV VACCINE (60+ or ) (1 - 1-dose 75+ series) 12/27/2023 INFLUENZA VACCINE (#1) 2024 Insurance MEDICARE PART A AND B [employer] SUPP
--- OUTSIDE RECORDS SUMMARY | 2025-01-25 16:50 | XMS_ITS | Clinical Summary ---
Author Organization [facility] Address [address] [place] [address] Care Team Providers Care Creative Writing Teacher Name Role Phone Mona Currie MD PhD Unavailable [phone] Sammy Shepard MD Unavailable [phone] Rikki Amezquita MD Primary Care Provider Allergies Active Allergy Reactions Criticality Noted Date Comments Diphenhydramine Other (See comments) Low Restless leg Nickel Rash Medium Nifedipine Chest tightness Medium Fifubrg-Xzv-Rdx Reductase Inhibitors Muscle pain Medium Sulfa Hives [...] tablet (20 mg total) nightly Active banana kzutkv-MRS-muv er 5 gram-45 kcal/60 mL liquid in [...] per tube 1 tablet (200 mcg total) oven press tender before breakfast 4 Active Additional Information Patient [...] 04/13/2024 Assessment & Plan (04/28/2024 2:26 PM REHABILITATION THERAPY TECHNICIAN): Stable on room air, continue trelegy, spiriva, prn duonebs Assessment & Plan (04/13/2024 12:50 PM REHABILITATION THERAPY TECHNICIAN): Stable on room air, continue trelegy, [...] 02/26/2024 Assessment & Plan (04/28/2024 2:29 PM REHABILITATION THERAPY TECHNICIAN): Hb 9-10 at baseline, stable, continue [...] 01/25/2024 Assessment & Plan (04/28/2024 2:25 PM REHABILITATION THERAPY TECHNICIAN): Tube removed, keep healing stoma clean, dry, covered. F/u with PCP Assessment & Plan (04/13/2024 12:46 PM REHABILITATION THERAPY TECHNICIAN): Recently pulled out by patient, surgical site is healing, continue to clean daily and cover with dry gauze Assessment & Plan (04/09/2024 1:53 PM REHABILITATION THERAPY TECHNICIAN): Ok to keep tube out, cover area daily with dry gauze until healed, notify provider for change in condition or sx of dysphagia Assessment & Plan (04/06/2024 8:05 PM REHABILITATION THERAPY TECHNICIAN): Now tolerating PO, likely could permanently DC soon, continue with h2o flushes for now Assessment & Plan (03/15/2024 10:55 AM REHABILITATION THERAPY TECHNICIAN): Continue to flush q.i.d., able to tolerate food by mouth, EDUCATIONAL DIRECTOR following Assessment & Plan (03/06/2024 9:49 PM [...] on imaging, continue nepro at 40ml/hr with EDUCATIONAL DIRECTOR following for repeat swallow studies Hyperkalemia 01/18/2024 Assessment & Plan (01/18/2024 7:41 AM CDT): Improved after treatment at the hospital. Continue to monitor with dialysis. 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 01/18/2024 Assessment & Plan (04/28/2024 2:31 PM REHABILITATION THERAPY TECHNICIAN): Has some improvement with therapy but remains weak with hemiparesis and aphasia, requires full care for all ADLs, unable to reposition self and will require electric hospital bed at home, ongoing PT/OT Contonie asa, statin, eliquis Heart healthy diet with exercise as tolerated Maintain BP and glycemic control F/u PCP Assessment & Plan (04/13/2024 12:49 PM REHABILITATION THERAPY TECHNICIAN): Deficits improving have seem to stabilize now ambulatory with walker and gait belt, tolerating PO, speech garbled, continue statin, eliquis, heart healthy diet with exercise as tolerated; may need to transfer to LTC vs home with home health and family to care Assessment & Plan (04/09/2024 1:53 PM REHABILITATION THERAPY TECHNICIAN): Deficits improving, now ambulatory with walker and gait belt, tolerating PO, speech remains garbled, continue statin, eliquis, heart healthy diet with exercise as tolerated Assessment & Plan (04/06/2024 8:08 PM REHABILITATION THERAPY TECHNICIAN): Improving with therapies, now ambulatory and tolerating PO, speech remains garbled, continue statin, eliquis, heart healthy diet with exercise as tolerated Assessment & Plan (03/31/2024 2:26 PM REHABILITATION THERAPY TECHNICIAN): Speech and mobility improving, now ambulatory with walker and gait belt. Continue PT/OT/EDUCATIONAL DIRECTOR, continue statin and Eliquis, maintain BP and glycemic control Assessment & Plan (03/20/2024 8:07 PM REHABILITATION THERAPY TECHNICIAN): Improving with therapy, continue statin and Eliquis, maintain BP and glycemic control. Continue PT OT, EDUCATIONAL DIRECTOR, remains a fall risk F/u with neurology as scheduled, plans to DC home with Assessment & Plan (03/15/2024 10:51 AM REHABILITATION THERAPY TECHNICIAN): Improving with therapy, continue statin and Eliquis, maintain BP and glycemic control. Continue PT OT, EDUCATIONAL DIRECTOR, remains a fall risk Assessment & Plan (03/06/2024 9:49 PM CDT): Stable, improving with therapies, continue statin, eliquis, PT/OT/EDUCATIONAL DIRECTOR, supportive care, continue to advance diet as tolerated Assessment & Plan (02/27/2024 3:02 PM CDT): Stable, improving with therapies, continue statin, eliquis, PT/OT/EDUCATIONAL DIRECTOR, supportive care with plans to DC home following rehab stay Assessment & Plan (02/20/2024 1:56 PM CDT): Deficits improving with therapy, continue statin and eliquis, PT/OT/EDUCATIONAL DIRECTOR with video swallow scheduled Continue bID zyprexa 2.5mg for now, may tolerate GDR at subsequent visit Assessment & Plan (02/19/2024 10:51 AM CDT): Improving with therapy, no recurrent episodes of agitation since starting BID zyprexa, continue statin and eliquis, PT/OT/EDUCATIONAL DIRECTOR with video swallow scheduled Assessment & Plan (02/11/2024 1:32 PM CDT): Improving, continue statin and eliquis, PT/OT. EDUCATIONAL DIRECTOR following for advancement of diet, will schedule Zyprexa 2.5mg HS rather than In am, conitnue supportive care, fall precautions Assessment & Plan (02/08/2024 3:56 PM CDT): Mobility and speech improving with intermittent agitation, fall risk, zyprexa increased to 2.5mg daily as unable to be redirected at times. Continue statin, eliquis, PT/TO/EDUCATIONAL DIRECTOR, TF zainab per RD recs Assessment & Plan (02/03/2024 8:55 AM CDT): Mobility is improving, remains aphasic, able to follow simple commands and has spontaneous movements of all extremities; continue statin, eliquis, glycemic control, BP management, PT/OT/EDUCATIONAL DIRECTOR Assessment & Plan (02/01/2024 9:33 AM CDT): Mobility is improving, intermittent anxiety, will need to monitor and provide supportive care, attempt to avoid benzos or antipsychotics although may need prn low dose meds due to fall risk and inability to be redirected; continue statin, eliquis, glycemic control, BP management, PT/OT/EDUCATIONAL DIRECTOR Assessment & Plan (01/28/2024 2:35 PM CDT): [...] & Plan (01/25/2024 12:46 PM CDT): Ongoing PT/OT/EDUCATIONAL DIRECTOR with generalized weakness, aphasia and R sided facial droop, follows some simple commands, continue statin and eliquis; monitor for fall risk given intermittent agitation; no new meds today but may need PRN due to fall risk Assessment & Plan (01/25/2024 11:13 AM CDT): Mobility is improving now at times getting out of bed without help, continue to monitor for fall risk, PT/OT/EDUCATIONAL DIRECTOR; continue statin and eliquis Assessment & Plan (01/18/2024 5:52 PM CDT): Ongoing R sided weakness, R sided facial droop, aphasia; reports some improvement in spontaneous movement and mumbling. Continue asa, statin, eliquis; of note has documented statin intolerance, will need to find out specifics Continue PT/OT EDUCATIONAL DIRECTOR , tube feeds for now with plans for repeat video swallow Type 2 diabetes mellitus with renal complication 01/18/2024 Assessment & Plan (04/09/2024 1:54 PM REHABILITATION THERAPY TECHNICIAN): Glucose logs reviewed and stable, continue HS lantus and mealtime SSI, will try to DC SSI prior to DC home Assessment & Plan (04/06/2024 8:06 PM REHABILITATION THERAPY TECHNICIAN): Stable, continue HS lantus and mealtime [...] 04/11/2023 At risk for amiodarone toxicity with retirement u se 10/06/2022 Chronic anticoagulation 10/06/2022 Paroxysmal atrial fibrillation 10/06/2022 Assessment & Plan (04/28/2024 2:28 PM REHABILITATION THERAPY TECHNICIAN): Rate controlled, continue metoprolol, amiodarone, eliquis F/u cardiology dr wiley Assessment & Plan (04/13/2024 12:46 PM REHABILITATION THERAPY TECHNICIAN): Rate controlled on exam; continue metoprolol, amiodarone, Eliquis ; no recent falls Assessment & Plan (04/06/2024 8:06 PM REHABILITATION THERAPY TECHNICIAN): Rate controlled; continue metoprolol, amiodarone, Eliquis Assessment & Plan (03/31/2024 2:29 PM REHABILITATION THERAPY TECHNICIAN): Rate controlled on metoprolol, amiodarone; continue b.i.d. Eliquis Assessment & Plan (03/20/2024 8:09 PM REHABILITATION THERAPY TECHNICIAN): Stable on metoprolol, amiodarone and eliquis, [...] 10/06/2022 Assessment & Plan (04/28/2024 2:26 PM REHABILITATION THERAPY TECHNICIAN): Continue treatments outpatient MWF, epogen on HD days, f/u with nephrology Assessment & Plan (04/09/2024 1:54 PM REHABILITATION THERAPY TECHNICIAN): Tolerating HD MWF, at times using p.r.n. lorazepam with HD treatment, anxiety during access. Monitor electrolytes and weight Continue Epogen Assessment & Plan (04/06/2024 8:08 PM REHABILITATION THERAPY TECHNICIAN): Continue HD MWF, p.r.n. lorazepam with HD treatment. Monitor electrolytes and weight Continue Epogen Assessment & Plan (03/31/2024 2:26 PM REHABILITATION THERAPY TECHNICIAN): Continue HD MWF, continues to use p.r.n. lorazepam with HD treatments; daughter states this is helping,. Monitor electrolytes and weight Continue Epogen Assessment & Plan (03/20/2024 8:08 PM REHABILITATION THERAPY TECHNICIAN): Continue HD MWF, continue to monitor electrolytes and weight, may use p.r.n. lorazepam with HD treatments; no reports of recent agitation with treatments Assessment & Plan (03/15/2024 10:52 AM REHABILITATION THERAPY TECHNICIAN): Continue HD MWF, continue to monitor [...] 3:59 PM CDT): Receiving treatments MWF at [facility], intermittent anxiety, increase zyprexa to [...] 5:55 PM CDT): Continue treatments MWF at [facility], TID calcium acetate, nephrology following, nepro tube feeds ordered, starting on jevity on admission due to no nepro available Assessment & Plan (01/18/2024 7:41 AM CDT): Continue with dialysis 3 times a week. Continue calcium acetate. Labs with dialysis. Preoperative cardiovascular examination 09/20/19 22 Chronic heart failure with preserved ejection fr action 07/02/2019 Assessment & Plan (04/28/2024 2:26 PM REHABILITATION THERAPY TECHNICIAN): Stable, continue metoprolol, monitor weights with HD Assessment & Plan (03/20/2024 8:08 PM REHABILITATION THERAPY TECHNICIAN): Stable on exam, continue metoprolol, monitor [...] 02/04 Assessment & Plan (04/06/2024 8:06 PM REHABILITATION THERAPY TECHNICIAN): Weight is stable since rehab admission, continue exercise as tolerated, RD following Assessment & Plan (03/20/2024 8:09 PM REHABILITATION THERAPY TECHNICIAN): Mobility is improving, recently stopped TF [...] 02/04 Assessment & Plan (04/13/2024 12:48 PM REHABILITATION THERAPY TECHNICIAN): Stable/compensated, continue HD treatments, weekly weights, metoprolol, statin amio, eliquis Assessment & Plan (03/20/2024 8:08 PM REHABILITATION THERAPY TECHNICIAN): Stable on metoprolol and amiodarone, continue [...] a associated with type 2 diabetes mellitus ([facility]) 05/20/2013 Overview (08/11/2016): DMII WO CMP UNCNTRLD Assessment & Plan (04/13/2024 12:48 PM REHABILITATION THERAPY TECHNICIAN): Well controlled on lantus 18 units hs with mealtime SSI, continue accuchecks ac and hs Assessment & Plan (03/15/2024 10:54 AM REHABILITATION THERAPY TECHNICIAN): Glucose logs reviewed continue lantus 18 [...] NOS Assessment & Plan (04/28/2024 2:28 PM REHABILITATION THERAPY TECHNICIAN): Continue Lantus 18 units HS with mealtime SSI and daughter will assist with med administration Bp stable on metoprolol, monitor for BP goal ,140/<90 Continue accuchecks ac and hs Assessment & Plan (03/31/2024 2:28 PM REHABILITATION THERAPY TECHNICIAN): Continue Lantus 18 units HS with mealtime SSI, glucose 236 this a.m., evening glucose 170, continue diabetic diet. BP stable on metoprolol Assessment & Plan (03/15/2024 10:53 AM REHABILITATION THERAPY TECHNICIAN): BP stable on metoprolol 50mg daily, [...] NOS Assessment & Plan (04/13/2024 12:51 PM REHABILITATION THERAPY TECHNICIAN): Subclinical hypothyroidism with TSH trending up to 92, encourage appropriate administration of medication in early a.m. on empty stomach, Synthroid increased to 200 mcg daily at previous visit with plan to repeat ths in 6 weeks, T3 and T4 normal Assessment & Plan (03/31/2024 2:30 PM REHABILITATION THERAPY TECHNICIAN): Subclinical hypothyroidism with TSH trending up to 92, encourage appropriate administration of medication in early a.m. on empty stomach, Synthroid increased to 200 mcg daily Assessment & Plan (03/20/2024 8:09 PM REHABILITATION THERAPY TECHNICIAN): Inpatient workup with Tsh elevated with normal t4, ensure medication administration appropriate early am on empty stomach; repeat TSH this week Assessment & Plan (03/15/2024 10:54 AM REHABILITATION THERAPY TECHNICIAN): Inpatient workup with Tsh elevated with [...] on room air to complete PO abx, EDUCATIONAL DIRECTOR to follow, DC on prn duonebs, likely could DC Urinary tract infection without hematuria 05/11/2021 02/01/2024 Hyperlipidemia 04/22/2012 09/19/2021 Overview (08/10/2016): HYPERLIPIDEMIA NEC/NOS Immunizations Immunization Administration Dates Next Due Influenza, Unspecified 02/04/2021 Surgical History Surgery Date Site/Laterality Comments CHOLECYSTECTOMY Cholecystectomy ENTERIC TUBE INJECTION 01/19/2024 N/A Medical History Medical History Date Comments Hx Other Medical 2006 Thyroidectomy Asthma Asthma Type 2 diabetes mellitus Diabete s type 2 Disorder of thyroid Thyroid dise [...] drink = 0.6 oz pur e alcohol) [facility] Utilities Answer Date Recorded In the past 12 months has [employer], gas, oil, or water [employer] threatened to shut off services in your home? No 02/26/2024 Social Connection and Isolation Panel Answer Date Recorded In a typical week, how many times do you talk on the phone with family, friends, or neighbors? Three times a week 02/26/2024 How often do you get togethe r with friends or relatives? Three times a week 02/26/2024 How often do you attend up health system or adventist services? Never 02/26/2024 Do you belong to any clubs o r organizations such as oriental orthodox groups, unions, fraternal or athletic groups, or [...] place to sleep or slept in a retirement (including now)? No 05/13/2021 Housing Stability Vital Sign Answer Yonathan e Recorded In the last 12 months, was t here a time when you were not able to pay the mortgage or rent on time? No 02/26/2024 In the past 12 months, how m any times have you moved where you were living? 0 02/26/2024 At any time in the past 12 m [facility], were you homeless or living in a retirement (including now)? No 02/26/2024 Personal Safety Answer Date Recorded Have you ever been in or are you currently in a harmful physical or emotional relationship or is someone making you feel afraid or unsafe? Denies 02/25/2024 Comments No Sex and Gender Information Value Date Recorded Sex Assigned at Not on file Legal Sex Female 10:22 AM REHABILITATION THERAPY TECHNICIAN Gender Identity Not on file Sexual Orientation Not on file Obstetrics History Last Filed Vital Signs Vital Sign Reading Time Taken Comments Blood Pressure 120/66 07/01/2024 9:38 AM REHABILITATION THERAPY TECHNICIAN Pulse 55 07/01/2024 9:38 AM REHABILITATION THERAPY TECHNICIAN Temperature 36.5 C (97.7 F) 03/03/2024 11:40 AM CDT Respiratory Rate 22 03/05/2024 8:31 AM CDT Oxygen Saturation 97% 07/01/2024 9:38 AM REHABILITATION THERAPY TECHNICIAN Inhaled Oxygen Concentration - - Weight 89.7 kg (197 lb 11.2 oz) 07/01/2024 9:38 AM REHABILITATION THERAPY TECHNICIAN Height 162.6 cm (5' 4) 07/01/2024 9:38 AM REHABILITATION THERAPY TECHNICIAN Body Mass Index 33.94 07/01/2024 9:38 AM REHABILITATION THERAPY TECHNICIAN Plan of Treatment Health Maintenance Due Date Last Done Comments Albumin Creatinine Ratio, Urine 1948 Osteoporosis Screening-Bone Density Scan 1950 Dilated Eye Exam 1948 Foot Exam 1950 DTaP/Tdap/Td Vaccine (1 - Tdap) 12/27/1959 Zoster Vaccine (1 of 2) 1998 Well Visit 65+ 2013 Pneumococcal vaccine 65+ (2 of 2 - PPSV23, PCV20, or PCV21) 03/02/2016 01/06/2016 Depression Screening 05/10/2022 05/10/2021 Hemoglobin A1C 08/27/2024 02/27/2024, 09/2021, 10/25/2018, Additional history exists Influenza Vaccine (#1) 2025 , 02/04/2021, 02/17/2018, Additional history exists Fall Risk Assessment 03/03/2025 03/03/2024, 09/20/19 22 eGFR 03/03/2025 03/03/2024, 02/05, 02/27/2024, Additional history exists Lipid Panel 07/01/2025 07/01/2024, 06/2022, 05/11/2021, Additional history exists Hepatitis C Screening Completed 05/08/2022 Hepatitis B Screening Completed 03/03/2024 Procedures Procedure Name Priority Date/Time Associated Diagnosis Comments POCT LIPID PANEL Routine 07/01/2024 9:57 AM REHABILITATION THERAPY TECHNICIAN Need for lipid screening EGFR Routine 03/03/2024 6:45 AM CDT HEMOGLOBIN A1C Routine 02/27/2024 5:59 AM CDT HEPATITIS PANEL, ACUTE STAT 05/08/2022 3:59 PM REHABILITATION THERAPY TECHNICIAN from Last 3 Months or Most Recently Relevant to Health Maintenance Results * POCT lipid panel (07/01/2024 9:57 AM REHABILITATION THERAPY TECHNICIAN) Cholesterol, POC 138 mg/dL Comment:GLU = 176 HDL, POC 17 mg/dL Triglycerides, POC 168 mg/dL LDL Cholesterol POC 88 mg/dL Chol/HDL Ratio, POC 5.2 Non-HDL Cholesterol, POC 121 mg/dL Cholesterol Total, POC 138 mg/dL Capillary blood 07/01/2024 9 :57 AM REHABILITATION THERAPY TECHNICIAN us Uriel Gillette MD POINT OF [...] data was last reviewed 2021. Blood 03/03/2024 6:4 5 AM CDT 03/03/2024 6:51 AM CDT us Ty Reyes MD LAB BLOOD ORDERABLES Final Resu lt [facility] [address] [facility] Department [place] [address] * (ABNORMAL) Hemoglobin A1c (02/27/2024 5:59 AM CDT) Hgb A1C 7.5(H) 4.0 - 5.6 % Estimated Average Glucose 169 mg/dL [facility] Comment: The ADA recommends reporting an estimated Average Glucose (eAG) with all Hemoglobin A1c results using the equation derived from a study of 507 normal and diabetic adults. Minority populations were underrepresented and children were not included. (Diabetes Care 31:0791-8217, 2008). The eAG is not equivalent to a fasting glucose. Blood 02/27/2024 5:59 AM CDT 02/27/2024 7:11 AM CDT us Asif Delgadillo MD LAB BLOOD ORDERABLES Final Re sult [facility] [address] [place] [address] * Hepatitis panel, acute (05/08/2022 3:59 PM REHABILITATION THERAPY TECHNICIAN) Pathologist [facility] Hep A IgM Nonreactive Nonreactive [facility] Comment: Interpretive Data: If Hep A IgM Ab is reported as Equivocal, a new sample should be drawn in two weeks for testing. Current interpretive data was last revised on 19. Hep B core IgM Nonreactive Nonreactive [facility] Comment: Interpretive Data If HepB Core IgM Ab is reported as Equivocal, a new sample should be drawn in two weeks for testing. Current interpretive data was last revised on 19. Hep C Ab Nonreactive Nonreactive [facility] Comment: Interpretive Data Nonreactive: Antibodies [...] revised on 2019. HepBsAg Nonreactive Nonreactive [facility] Blood 05/08/2022 3:59 PM REHABILITATION THERAPY TECHNICIAN 05/08/2022 3:59 PM REHABILITATION THERAPY TECHNICIAN Mellissa Garcia DO LAB MICROBIOLOGY - GENERAL ORD ERABLES Final Result [facility] [address] Department [place] [address] from Last 3 Months or Most Recently Relevant to Health Maintenance Insurance MEDICARE [facility] MEDICARE [facility] MEDICARE SUPPLEMENT Advance Directives For more information, please contact: [phone] Documents on File Type Date Recorded Patient Bias Cutter Helper Expl anation ADVANCE DIRECTIVE 03/04/2024 10:[address] - Phys Order for PT Preferences * Full Code (Latest Code Status on File) Date Activated Date Inactivated Comments 02/25/2024 5:55 PM 03/03/2024 4:42 PM * Full Code Date Activated Date Inactivated Comments 05/11/2021 3:52 AM 05/14/2021 8:52 PM Care Teams Creative Writing Teacher Relationship Specialty Start Date End Date Rikki Amezquita MD [address] [facility] [address] [place] [address] PCP - General Family Medicine 07/01/24 Mona Currie MD PhD Medical Oncologist/Track Liner Operator Medical Oncology 01/07/21 Sammy Shepard MD Consulting Physician Nephrology 05/14/21
[2025-01-25 16:55] VITALS: BP 168/48; PULSE 51; RESP 20; TEMP 36.4; O2SAT 97
[2025-01-25 18:14] VITALS: BP 130/94; PULSE 51; RESP 12; O2SAT 99
[2025-01-25 18:50] LABS: Add Urine Microscopic? YES; Appearance Urine Turbid (Clear); Glucose Urine UA Negative (Negative); Leukocyte Esterase Ur 3+ LEU/UL (Negative); Need Manual Microscopic Reviewed; Nitrate Urine Negative (Negative); Non Pathogenic Casts 0-2; Specific Grav Ur 1.012 (1.001-1.035)
--- NOTE | 2025-01-25 19:37 | ED.FEMALEGU ---
HPI - Female Genitourinary General Chief complaint: Urogenital-Female Stated complaint: concern for uti Time Seen by Provider: 01/25/25 18:54 History of Present Illness HPI Narrative: Patient's buttermaker helper noticed she had a rash on her skin folds, she has also been having some irritation. Related Data Home Medications ?Medication ?Instructions ?Recorded ?Confirmed ?Last Taken ?Type insulin aspart U-100 100 unit/mL See Rx Instructions .Route .COMPLEX 05/20/24 12/23/24 Unknown History (3 mL) subcutaneous pen (Novolog FlexPen U-100 Insulin aspart) amiodarone 200 mg tablet 200 mg PO QAM 09/02/24 12/23/24 Unknown History insulin glargine 100 unit/mL (3 18 unit subcut QPM 09/02/24 12/23/24 Unknown History mL) subcutaneous pen (Lantus Solostar U-100 Insulin) ropinirole 2 mg tablet 0.5 mg PO Q12H 09/02/24 12/23/24 Unknown History levothyroxine 175 mcg tablet 200 mcg PO DAILY 09/17/24 12/23/24 Unknown History calcium acetate 667 mg tablet 667 mg PO ONCE 11/04/24 12/23/24 Unknown History Allergies Allergy/AdvReac Type Severity Reaction Status Date / Time nickel Allergy Intermediate hives and Verified 01/25/25 15:36 itchy rash Sulfa (Sulfonamide Allergy Intermediate Urticaria Verified 01/25/25 15:36 Antibiotics) and hives Calcium Channel Blocking AdvReac Intermediate STATES Verified 01/25/25 15:36 Agents-Dih CANNOT TAKE SINCE SHE HAS ASTHMA diphenhydramine AdvReac Intermediate restless Verified 01/25/25 15:36 legs nifedipine AdvReac Intermediate palpitation Verified 01/25/25 15:36 s Emixqix-GFQ-GrM Reductase AdvReac Intermediate muscle Verified 01/25/25 15:36 Inhibitor (Rizfgym-Lza-Ksu cramps Reductase Inhibitor) Review of Systems Review of Systems: ROS unobtainable: Yes unobtainable due to medical condition PMFSH Past Medical History Medical History 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 Paroxysmal atrial fibrillation Bilateral primary osteoarthritis of knee Renal osteodystrophy DVT of lower extremity (deep venous thrombosis) Asthma-COPD overlap syndrome Left-sided cerebrovascular accident (CVA) (01/04/24) With residual left-sided visual neglect, profound expressive aphasia and right-sided hemiplegia ESRD on hemodialysis (02/17/22) Chronic anticoagulation Obstructive sleep apnea Hypothyroidism Insulin dependent type 2 diabetes mellitus Generalized anxiety disorder Chronic obstructive pulmonary disease Chronic diastolic (congestive) heart failure Coronary artery disease involving [place] heart without angina pectoris Depression GERD without esophagitis Peripheral polyneuropathy Surgical History Surgical History History of tracheostomy (04/24/22) With subsequent removal History of cataract extraction History of tonsillectomy History of cholecystectomy History of gastrostomy tube placement and removal Family History Family History Father Hypertension Family history of coronary artery disease Sibling Hypertension Family history of coronary artery disease Mother Cerebrovascular accident Other Asthma Depression Family history of Alzheimer's disease Family history of arthritis Family history of cardiovascular disease Family history of lymphoma Family history of obesity Family history of seizure disorder Social History Social History Social History: Surrogate medical decision maker: Anjum (spouse) or Gwen (daughter) Kyra. Code status: Full code. Smoking packs per day: 2 Smoking cigarettes per day: 40.0 Years smoked: 30 Smoking pack-years: 60.00 Smoking status: Former smoker Second hand tobacco smoke exposure: No Alcohol intake: never Alcohol use details: special occasions Substance use: former Substance use type: marijuana Last use: 01/05/23 Do You Feel Safe in your Home?: Yes Lack of Transportation: No Lack of Food: Never True Current Housing: I Have Housing Concerned About Future Housing: No Difficulty Paying Gas/Electric Bills: No Difficulty Paying for Meds: No Currently Unemployed: No Education: High School Diploma/GED Difficulty w/ Childcare or Family Care: No Living arrangements: with family Occupation/Education: retired Spiritual care concerns: No Exam Narrative: EXAMINATION OF ORGAN SYSTEMS/BODY AREAS: Constitutional: Vital signs per nursing GENERAL:[No acute distress, non-toxic appearing.] HEAD: Normal with no signs of head trauma. EYES: EOMI, conjunctiva normal ENT: Hearing grossly intact LUNGS: Nonlabored breathing. HEART: [Regular rate and rhythm] ABD: [Soft], [nontender to palpation] EXT: Normal range of motion SKIN: Some slight redness intertriginous fall, not beefy red : Some slight irritation to touch; no significant rash or induration or tenderness or discharge NEURO: [Alert. Right-sided weakness and droop.] PSYCH: Normal affect Course Vital Signs Vital signs: Vital Signs Temperature 97.5 F L 01/25/25 16:55 Pulse Rate 51 L 01/25/25 16:55 Respiratory Rate 20 01/25/25 16:55 Blood Pressure 168/48 H 01/25/25 16:55 Pulse Oximetry 97 01/25/25 16:55 Oxygen Delivery Room Air 01/25/25 16:55 Temperature 97.8 F 01/25/25 19:42 Pulse Rate 52 L 01/25/25 19:42 Respiratory Rate 11 L 01/25/25 19:42 Blood Pressure 171/65 H 01/25/25 19:42 Pulse Oximetry 98 01/25/25 19:42 Oxygen Delivery Room Air 01/25/25 16:55 MDM - Female Genitourinary MDM Narrative Medical decision making narrative: Patient presents after being sent here for UTI, and concern for possible skin rash. On my evaluation, there is some slight redness/irritation in the intertriginous folds however does not appear to be consistent with yeast, there is no induration and I have low concern for cellulitis or other infection. She does have UTI here with bacteria, large WBCs, leuks, I checked prior urine culture and will start her on Augmentin with 1 dose of ceftriaxone given here. Discussed with patient's /buttermaker helper care instructions, return precautions, follow-up to PCP for recheck, he is agreeable to plan. She is very well-appearing here no distress normal vital signs. Lab Data Labs: Lab Results 01/25/25 01/25/25 Range/Units 18:28 18:32 POC Capillary Glucose 109 H (65-105) mg/dl Urine Color Yellow (Yellow) Urine Appearance Turbid H (Clear) Urine pH 7.0 (5.0-9.0) Ur Specific [place] 1.012 (1.001-1.035) Urine Protein 3+ H (Negative) mg/dL Urine Glucose (UA) Negative (Negative) mg/dL Urine Ketones Negative (Negative) mg/dL Ur Blood (Man) Negative (Negative) Urine Nitrate Negative (Negative) Urine Bilirubin Negative (Negative) Urine Urobilinogen 1.0 (<2.0) mg/dL Add Ur Microanalysis Reviewed Leukocyte Esterase Rfl 3+ H (Negative) ERICK/UL Urine RBC 3-5 H (0-2) /hpf Urine WBC >100 H (0-3) /hpf Ur Squamous Epith Cells None seen (Few) /hpf Urine Bacteria 4+ /hpf Urine Casts 0-2 Discharge Plan Discharge Clinical Impression: Acute UTI Patient Disposition: Home Condition: Stable Instructions: Antibiotic Form, Urinary Tract Infection in Women (ED) Additional Instructions: Start the antibiotics as prescribed. You can continue using the barrier cream on her skin folds to prevent irritation or infection. Please have her follow-up with her primary care doctor in a week to make sure her symptoms and infection have resolved. If she starts having any worsening symptoms, fevers or chills, or anything else concerning, please bring her back to the hospital. Patient Language: Other Prescriptions: New amoxicillin-pot clavulanate 875-125 mg tablet 1 tablet PO Q12H Qty: 14 0RF No Action insulin aspart U-100 [Novolog FlexPen U-100 Insulin] 100 unit/mL (3 mL) insulin pen See Rx Instructions .ROUTE .COMPLEX MDD 60 Rx Instructions: sliding scale albuterol sulfate [Ventolin HFA] 90 mcg/actuation HFA aerosol inhaler See Rx Instructions .ROUTE .COMPLEX Qty: 18 6RF Dose Instruction: INHALE 2 PUFFS BY MOUTH 4 TIMES DAILY NEEDED FOR SHORTNESS OF BREATH OR WHEEZING. Rx Instructions: INHALE 2 PUFFS BY MOUTH 4 TIMES DAILY NEEDED FOR SHORTNESS OF BREATH OR WHEEZING. metoprolol succinate 50 mg tablet extended release 24 hr 50 mg PO QAM Qty: 90 0RF montelukast 10 mg tablet 10 mg PO DAILY Qty: 90 3RF calcium acetate 667 mg tablet 667 mg PO ONCE escitalopram oxalate [Lexapro] 5 mg tablet 5 mg PO DAILY Qty: 90 4RF amiodarone 200 mg tablet 200 mg PO QAM ropinirole 2 mg tablet 0.5 mg PO Q12H insulin glargine [Lantus Solostar U-100 Insulin] 100 unit/mL (3 mL) insulin pen 18 unit subcut QPM Rx Instructions: INJECT 18 UNITS UNDER THE SKIN AT BEDTIME levothyroxine 175 mcg tablet 200 mcg PO DAILY albuterol sulfate 2.5 mg /3 mL (0.083 %) solution for nebulization 2.5 mg inhalation Q4-6H PRN (Reason: shortness of breath or wheezing) Qty: 90 6RF budesonide-formoterol 160-4.5 mcg/actuation HFA aerosol inhaler 2 puff inhalation Q12H Qty: 10.2 6RF Eliquis 2.5 mg tablet See Rx Instructions PO .COMPLEX Qty: 180 2RF Dose Instruction: TAKE 1 TABLET TWICE DAILY Rx Instructions: TAKE 1 TABLET TWICE DAILY orally ; fluticasone propionate 50 mcg/actuation spray,suspension 2 spray intranasal DAILY PRN (Reason: nasal congestion) Qty: 16 2RF trazodone 50 mg tablet 50 mg PO QHS Qty: 30 5RF atorvastatin [Lipitor] 20 mg tablet 20 mg PO HS Qty: 90 1RF hydralazine 25 mg tablet 25 mg PO TID Qty: 270 0RF isosorbide mononitrate 30 mg tablet extended release 24 hr 30 mg PO DAILY Qty: 90 0RF lorazepam [Ativan] 0.5 mg tablet 0.5 mg PO DAILY PRN (Reason: anxiety) Qty: 30 0RF Follow-up/Referrals: Rikki Amezquita MD [Primary Care Provider, Family Practice] - 3 Days
[2025-01-25] MEDS: LIDOCAINE 1% LOCAL INJ 10 ML VIAL (19:41)
[2025-01-25] MEDS: cefTRIAXone 1 GM VIAL IM (19:41)
[2025-01-25 19:42] VITALS: BP 171/65; PULSE 52; RESP 11; TEMP 36.6; O2SAT 98
== END 2025-01-25 19:56 | disposition home or self-care (01) ==
LOC: ANHED 19:29
PROVIDERS: Emergency Medicine; Emergency Provider Emergency Medicine; PCP Family Medicine
DX: N39.0 Urinary tract infection, site not specified (principal); I48.0 Paroxysmal atrial fibrillation; M19.90 Unspecified osteoarthritis, unspecified site; Z86.718 Personal history of other venous thrombosis and embolism; J44.9 Chronic obstructive pulmonary disease, unspecified; Z79.01 Long term (current) use of anticoagulants; N18.6 End stage renal disease; Z99.2 Dependence on renal dialysis; G47.30 Sleep apnea, unspecified; E03.9 Hypothyroidism, unspecified; E11.9 Type 2 diabetes mellitus without complications; Z79.4 Long term (current) use of insulin; I50.9 Heart failure, unspecified; I25.10 Atherosclerotic heart disease of native coronary artery without angina pectoris; F32.A Depression, unspecified; K21.9 Gastro-esophageal reflux disease without esophagitis
CPT/HCPCS: 81001; 82948; 87077; 87086; 87186; 96372; 99283; J0696; J2003

== ENCOUNTER 2025-02-03 15:18 | Outpatient (NON) | payer MEDICARE, SELFPAY ==
--- OUTSIDE RECORDS SUMMARY | 2022-05-13 16:00 | XMS_ITS | Encounter Summary ---
Author Organization [facility] Address [address] [place] [address] Care Team Providers Care Underground Heavy Equipment Operator Name Role Phone Rikki Amezquita MD Primary Care Provider [phone] Encounter Details Date Type Department Care Team (Latest Contact Info) Description 05/13/2022 3:00 PM MANAGER ORDER Hospital Encounter [address] [address] Allison Patrick MD [employer] Social History Tobacco Use Types Packs/Day Years Used Date Smoking Tobacco: Former Cigarettes Smokeless Tobacco: Never Comments:Quit 30 years ago Alcohol Use Standard Drinks/Week Comments Yes 0 (1 standard drink = 0.6 oz [...] Patient does not drink 10/05/2022 12:17 PM CDT Camila Silva RN Q3: How often do you have six or more drinks on one occasion? Never 10/05/2022 12:17 PM CDT Camila Silva RN * Audit-C Score Answer Date of Assessment Author 1 10/05/2022 12:17 PM CDT Sana Silva RN documented as of this encounter Plan of Treatment Upcoming Encounters Date Type Department Care Team (Late st Contact Info) Description 03/03/2025 2:15 PM CDT Appointment [facility] Vascular Services [address], [address] [place] [address] Fernando Couch MD [address] [place] [address] documented as of this encounter Visit Diagnoses Not on filedocumented in this encounter Additional Health Concerns Infection Onset Date Last Indicated Resolved Time CDIFF Under Investigation 05/23/2022 05/23/2022 8:26 AM MANAGER ORDER COVID-19 Under Investigation 05/27/2022 05/27/2022 05/27/2022 11:54 PM MANAGER ORDER documented as of this encounter Care Teams Underground Heavy Equipment Operator Relationship Specialty Start Date End Date Rikki Amezquita MD [address] [place] [address] PCP - General 11/28/21 documented as of this encounter
--- OUTSIDE RECORDS SUMMARY | 2025-02-03 15:22 | XMS_ITS | Clinical Summary ---
Author Organization [facility] Address [address] [place] [address] Care Team Providers Care Sanitation Engineer Name Role Phone Family [facility] Rostovclaribel [...] Comments Blood Pressure 129/59 05/28/2022 8:00 AM PROFESSIONAL NURSING TUTOR Pulse 76 05/28/2022 8:00 AM PROFESSIONAL NURSING TUTOR Temperature 36.7 C (98 F) 05/28/2022 8:00 AM PROFESSIONAL NURSING TUTOR Respiratory Rate 20 05/28/2022 8:00 AM PROFESSIONAL NURSING TUTOR Oxygen Saturation 96% 05/28/2022 8:00 AM PROFESSIONAL NURSING TUTOR Inhaled Oxygen Concentration - - Weight 111.6 kg (246 lb) 05/28/2022 6:37 AM PROFESSIONAL NURSING TUTOR Height 162.6 cm (5' 4) 05/13/2022 5:19 PM PROFESSIONAL NURSING TUTOR Body Mass Index 42.23 05/13/2022 5:19 PM PROFESSIONAL NURSING TUTOR Plan of Treatment Health Maintenance Due Date Last Done Comments Annual Visit Topic 1951 Hepatitis C Screening 1966 DTaP/Tdap/Td Vaccines (1 - Tdap) 12/27/1967 Pneumococcal Vaccine: 65+ Ye ars (1 of 4 - PCV) 12/27/1967 01/06/2016 HIB Vaccines Aged Out No longer eligi [...] 6:45 PM 05/13/2022 6:03 PM Care Teams Sanitation Engineer Relationship Specialty Start Date End Date [facility] [address] [place] [address] [address] [facility] [address] [place] [id number] PCP - General 05/14/22
--- OUTSIDE RECORDS SUMMARY | 2025-02-03 15:22 | XMS_ITS | Clinical Summary ---
Author Organization [facility] Address [address], [place] [address] Phone Care Team Providers Care Acute Dialysis Registered Nurse Name Role Phone Rikki Amezquita MD Primary [...] (#1) 2025 03/07/2022, 2020 Insurance MEDICARE MEDICARE [facility] MEDICARE [facility] MEDICARE [facility] Member Subscriber Plan / Payer (Ef fective 2024-Present) Name:Gregoria Rae Relation to Subscriber:Self Name:Gregoria Rae Subscriber ID:Not on file Payer ID:[id number] Group ID:Not on file Type:Not on file Address: [place] [id number] Care Teams Acute Dialysis Registered Nurse Relationship Specialty Start Date End Date Rikki Amezquita MD [address] [facility] [address] [facility] [address] [place] [address] PCP - General Internal Medicine 03/07/22
--- OUTSIDE RECORDS SUMMARY | 2025-02-03 15:23 | XMS_ITS | Clinical Summary ---
Author Organization [facility] Address [address] [facility] [place] [address] Care Team Providers Care Crm Consultant Name Role Phone Rikki Amezquita MD Primary Care Provider [phone] Source Comments [facility],non-owned Affiliates and Associated Physician Practices is amultiple site organization consisting of ambulatory clinics and hospital sitesin [place], [place], [place] and [place]. This disclosure is being madepursuant to the Care Everywhere program and may not contain all information available regarding this patient. Last updated 18.[facility] Allergies Active Allergy Reactions Criticality Noted Date [...] fluticasone propionate (Flonase) 50 MCG/ACT nasal spray [place] 2 (two) sprays into the nose once daily Active LORazepam (Ativan) 0.5 MG tablet 1 (one) tablet by Enteral route every 8 hours as needed Active nystatin (Mycostatin) 310905 UNIT/GM powder Apply 1 Application to affected [...] Oxygen Concentration 40% 04/12/2022 3 :16 PM JBOSS DEVELOPER Weight 120.2 kg (265 lb) 10/30/2024 9:43 AM CDT Height 157.5 cm (5' 2) 10/30/2024 9:43 AM CDT Body Mass Index 48.47 10/30/2024 9:43 AM CDT Plan of Treatment Upcoming Encounters Date Type Department Care Team (Late st Contact Info) Description 03/03/2025 2:15 PM CDT Appointment [facility] [address] [place] [address], [address] [place] [address] Fernando Couch MD [address] [place] [address] Health Maintenance Due Date Last Done [...] DEPRESSION SCREENING 05/07/2024 COVID-19 VACCINE (2 - season) 2025 05/26/2020 INFLUENZA VACCINE (#1) 2025 [...] RHYTHM STRIP ORDER 11/04/2024 4:04 PM CDT from Last 3 Months Results * CARDIAC RHYTHM STRIP ORDER (11/04/2024 4:04 PM CDT) Narrative 11/04/2024 4:04 PM CDT Ordered by an unspecified provider. us Scanned Document CARDIAC SERVICES ORDERABLES Fin al Result from Last 3 Months Insurance MEDICARE [facility] MEDICARE Advance Directives * Full Code (Latest Code Status on File) Date Activated Date Inactivated Comments 05/14/2022 8:26 AM 05/28/2022 12:06 PM Care Teams Crm Consultant Relationship Specialty Start Date End Date Rikki Amezquita MD [address] [place] [address] PCP - General 11/28/21
--- OUTSIDE RECORDS SUMMARY | 2025-02-03 15:23 | XMS_ITS | Patient Health Record ---
Author Organization [facility] Address [address] [place], [place] [id number] Care Team Providers Care Case Hardener Name Role Phone Brayan Amezquita Primary Care Provider Unavail able Sammy Shepard Unavailable [phone] Allergies No Known Allergies Reason For Referral [...] Notes Problem Chronic kidney disease stage 2 (011783194) Chronic kidney disease (CKD), stage II (mild) (N18.2) Active confirmed Problem Essential hypertension (95860402) Benign essential HTN (I10) Active confirmed Problem 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 (558399819864871) 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) Active confirmed Problem Essential hypertension (41778206) Essential (primary) hypertension (I10) Active confirmed Problem Chronic kidney disease stage 3A (disorder) (336497715) Chronic kidney disease, stage 3a (N18.31) Active [...] Coverage End Date Medicare [place] [address] [address] [place] [address] [phone] [id number] Gregoria aRe Self - patient is the insured [facility] [address] [place] [address] [phone] [id number] Gregoria Rae Self - patient is the insured Medical (General) History Medical History History ICD Code restless leg syndrome DM HTN CKD Surgical History Surgery Date(Month/Year) thryoidectomy cholecystectomy
--- OUTSIDE RECORDS SUMMARY | 2025-02-03 15:23 | XMS_ITS | Patient Health Record ---
Author Organization [facility] Address [address] [place] [address] Care Team Providers Care Dyed Yarn Operator Name Role Phone Nighat Live Unavailable [phone] Reason For Referral No Information Medications Medication SIG (Take, Route, Frequency, Duration) Notes Start Date End Date Status Potassium Chloride ER 10 MEQ Tablet Extended Release Oral Active Pravastatin Sodium 10 MG Tablet Oral Active Doxycycline Hyclate 100 MG Tablet Oral Active traMADol HCl 50 MG Tablet Oral Active Furosemide 40 MG Tablet Oral Active Rljsrudc-Zpsvcewck-Y exameth [id number] Ointment Ophthalmic Active Sertraline HCl 50 MG [...] mL) INSULIN PEN (ML) SUBCUTANEOUS *Reorder from [employer] for eRx and Interaction Alerts* Active Ventolin HFA 108 (90 Base) MCG/ACT Aerosol Solution Inhalation Active Fluconazole 150 MG Tablet Oral Active Fluticasone Propionate Diskus 50 MCG/ACT Aerosol Powder Breath Activated Inhalation *Reorder from [employer] for eRx and Interaction Alerts* Active Synthroid 200 MCG Tablet Oral Active Plan Of Treatment No Information
--- OUTSIDE RECORDS SUMMARY | 2025-02-03 15:25 | XMS_ITS | Clinical Summary ---
Author Organization [facility] Address [address] [place] [address] Care Team Providers Care Social Services Name Role Phone Unavailable Primary Care Provider [...]
--- OUTSIDE RECORDS SUMMARY | 2025-02-03 15:25 | XMS_ITS ---
Author Organization [facility] Address [address] [place] [address] Care Team Providers Care Visual Inspector Name Role Phone Mona Currie MD PhD Unavailable [phone] Sammy Shepard MD Unavailable [phone] Rikki Amezquita MD Primary Care Provider Dialysis Access Sites Type Status Location Placement Date Removal Da te Hemodialysis AV Access Upper arm Active Left Upper Arm - Anterior Procedures Procedure Name Priority Date/Time Associated Diagnosis Comments POCT LIPID PANEL Routine 07/01/2024 9:57 AM NEWSPAPER PRESS OPERATOR APPRENTICE Need for lipid screening EGFR Routine 03/03/2024 6:45 AM CDT HEMOGLOBIN A1C Routine 02/27/2024 5:59 AM CDT HEPATITIS PANEL, ACUTE STAT 05/08/2022 3:59 PM NEWSPAPER PRESS OPERATOR APPRENTICE from Last 3 Months or Most Recently Relevant to Health Maintenance Allergies Active Allergy Reactions Criticality Noted Date Comments Diphenhydramine Other (See comments) Low Restless leg Nickel Rash Medium Nifedipine Chest tightness Medium Rwgbewi-Jqp-Epj Reductase Inhibitors Muscle pain Medium Sulfa Hives [...] tablet (20 mg total) nightly Active banana [id number] er 5 gram-45 kcal/60 mL liquid in [...] 1 tablet (200 mcg total) early childhood specialist before breakfast 4 Active Additional Information [...] 04/13/2024 Assessment & Plan (04/28/2024 2:26 PM NEWSPAPER PRESS OPERATOR APPRENTICE): Stable on room air, continue trelegy, spiriva, prn duonebs Assessment & Plan (04/13/2024 12:50 PM NEWSPAPER PRESS OPERATOR APPRENTICE): Stable on room air, continue trelegy, spiriva, [...] 02/26/2024 Assessment & Plan (04/28/2024 2:29 PM NEWSPAPER PRESS OPERATOR APPRENTICE): Hb 9-10 at baseline, stable, continue epogen [...] 01/25/2024 Assessment & Plan (04/28/2024 2:25 PM NEWSPAPER PRESS OPERATOR APPRENTICE): Tube removed, keep healing stoma clean, dry, covered. F/u with PCP Assessment & Plan (04/13/2024 12:46 PM NEWSPAPER PRESS OPERATOR APPRENTICE): Recently pulled out by patient, surgical site is healing, continue to clean daily and cover with dry gauze Assessment & Plan (04/09/2024 1:53 PM NEWSPAPER PRESS OPERATOR APPRENTICE): Ok to keep tube out, cover area daily with dry gauze until healed, notify provider for change in condition or sx of dysphagia Assessment & Plan (04/06/2024 8:05 PM NEWSPAPER PRESS OPERATOR APPRENTICE): Now tolerating PO, likely could permanently DC soon, continue with h2o flushes for now Assessment & Plan (03/15/2024 10:55 AM NEWSPAPER PRESS OPERATOR APPRENTICE): Continue to flush q.i.d., able to tolerate food by mouth, COMMERCIAL RELATIONSHIP MANAGER following Assessment & Plan (03/06/2024 9:49 PM [...] on imaging, continue nepro at 40ml/hr with COMMERCIAL RELATIONSHIP MANAGER following for repeat swallow studies Hyperkalemia 01/18/2024 Assessment & Plan (01/18/2024 7:41 AM CDT): Improved after treatment at the hospital. Continue to monitor with dialysis. 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 01/18/2024 Assessment & Plan (04/28/2024 2:31 PM NEWSPAPER PRESS OPERATOR APPRENTICE): Has some improvement with therapy but remains weak with hemiparesis and aphasia, requires full care for all ADLs, unable to reposition self and will require electric hospital bed at home, ongoing PT/OT Contonie asa, statin, eliquis Heart healthy diet with exercise as tolerated Maintain BP and glycemic control F/u PCP Assessment & Plan (04/13/2024 12:49 PM NEWSPAPER PRESS OPERATOR APPRENTICE): Deficits improving have seem to stabilize now ambulatory with walker and gait belt, tolerating PO, speech garbled, continue statin, eliquis, heart healthy diet with exercise as tolerated; may need to transfer to LTC vs home with home health and family to care Assessment & Plan (04/09/2024 1:53 PM NEWSPAPER PRESS OPERATOR APPRENTICE): Deficits improving, now ambulatory with walker and gait belt, tolerating PO, speech remains garbled, continue statin, eliquis, heart healthy diet with exercise as tolerated Assessment & Plan (04/06/2024 8:08 PM NEWSPAPER PRESS OPERATOR APPRENTICE): Improving with therapies, now ambulatory and tolerating PO, speech remains garbled, continue statin, eliquis, heart healthy diet with exercise as tolerated Assessment & Plan (03/31/2024 2:26 PM NEWSPAPER PRESS OPERATOR APPRENTICE): Speech and mobility improving, now ambulatory with walker and gait belt. Continue PT/OT/COMMERCIAL RELATIONSHIP MANAGER, continue statin and Eliquis, maintain BP and glycemic control Assessment & Plan (03/20/2024 8:07 PM NEWSPAPER PRESS OPERATOR APPRENTICE): Improving with therapy, continue statin and Eliquis, maintain BP and glycemic control. Continue PT OT, COMMERCIAL RELATIONSHIP MANAGER, remains a fall risk F/u with neurology as scheduled, plans to DC home with Assessment & Plan (03/15/2024 10:51 AM NEWSPAPER PRESS OPERATOR APPRENTICE): Improving with therapy, continue statin and Eliquis, maintain BP and glycemic control. Continue PT OT, COMMERCIAL RELATIONSHIP MANAGER, remains a fall risk Assessment & Plan (03/06/2024 9:49 PM CDT): Stable, improving with therapies, continue statin, eliquis, PT/OT/COMMERCIAL RELATIONSHIP MANAGER, supportive care, continue to advance diet as tolerated Assessment & Plan (02/27/2024 3:02 PM CDT): Stable, improving with therapies, continue statin, eliquis, PT/OT/COMMERCIAL RELATIONSHIP MANAGER, supportive care with plans to DC home following rehab stay Assessment & Plan (02/20/2024 1:56 PM CDT): Deficits improving with therapy, continue statin and eliquis, PT/OT/COMMERCIAL RELATIONSHIP MANAGER with video swallow scheduled Continue bID zyprexa 2.5mg for now, may tolerate GDR at subsequent visit Assessment & Plan (02/19/2024 10:51 AM CDT): Improving with therapy, no recurrent episodes of agitation since starting BID zyprexa, continue statin and eliquis, PT/OT/COMMERCIAL RELATIONSHIP MANAGER with video swallow scheduled Assessment & Plan (02/11/2024 1:32 PM CDT): Improving, continue statin and eliquis, PT/OT. COMMERCIAL RELATIONSHIP MANAGER following for advancement of diet, will schedule Zyprexa 2.5mg HS rather than In am, conitnue supportive care, fall precautions Assessment & Plan (02/08/2024 3:56 PM CDT): Mobility and speech improving with intermittent agitation, fall risk, zyprexa increased to 2.5mg daily as unable to be redirected at times. Continue statin, eliquis, PT/TO/COMMERCIAL RELATIONSHIP MANAGER, TF nepro per RD recs Assessment & Plan (02/03/2024 8:55 AM CDT): Mobility is improving, remains aphasic, able to follow simple commands and has spontaneous movements of all extremities; continue statin, eliquis, glycemic control, BP management, PT/OT/COMMERCIAL RELATIONSHIP MANAGER Assessment & Plan (02/01/2024 9:33 AM CDT): Mobility is improving, intermittent anxiety, will need to monitor and provide supportive care, attempt to avoid benzos or antipsychotics although may need prn low dose meds due to fall risk and inability to be redirected; continue statin, eliquis, glycemic control, BP management, PT/OT/COMMERCIAL RELATIONSHIP MANAGER Assessment & Plan (01/28/2024 2:35 PM CDT): [...] & Plan (01/25/2024 12:46 PM CDT): Ongoing PT/OT/COMMERCIAL RELATIONSHIP MANAGER with generalized weakness, aphasia and R sided facial droop, follows some simple commands, continue statin and eliquis; monitor for fall risk given intermittent agitation; no new meds today but may need PRN due to fall risk Assessment & Plan (01/25/2024 11:13 AM CDT): Mobility is improving now at times getting out of bed without help, continue to monitor for fall risk, PT/OT/COMMERCIAL RELATIONSHIP MANAGER; continue statin and eliquis Assessment & Plan (01/18/2024 5:52 PM CDT): Ongoing R sided weakness, R sided facial droop, aphasia; reports some improvement in spontaneous movement and mumbling. Continue asa, statin, eliquis; of note has documented statin intolerance, will need to find out specifics Continue PT/OT COMMERCIAL RELATIONSHIP MANAGER , tube feeds for now with plans for repeat video swallow Type 2 diabetes mellitus with renal complication 01/18/2024 Assessment & Plan (04/09/2024 1:54 PM NEWSPAPER PRESS OPERATOR APPRENTICE): Glucose logs reviewed and stable, continue HS lantus and mealtime SSI, will try to DC SSI prior to DC home Assessment & Plan (04/06/2024 8:06 PM NEWSPAPER PRESS OPERATOR APPRENTICE): Stable, continue HS lantus and mealtime SSI, [...] At risk for amiodarone toxicity with buttermaker u se 10/06/2022 Chronic anticoagulation 10/06/2022 Paroxysmal atrial fibrillation 10/06/2022 Assessment & Plan (04/28/2024 2:28 PM NEWSPAPER PRESS OPERATOR APPRENTICE): Rate controlled, continue metoprolol, amiodarone, eliquis F/u cardiology dr wiley Assessment & Plan (04/13/2024 12:46 PM NEWSPAPER PRESS OPERATOR APPRENTICE): Rate controlled on exam; continue metoprolol, amiodarone, Eliquis ; no recent falls Assessment & Plan (04/06/2024 8:06 PM NEWSPAPER PRESS OPERATOR APPRENTICE): Rate controlled; continue metoprolol, amiodarone, Eliquis Assessment & Plan (03/31/2024 2:29 PM NEWSPAPER PRESS OPERATOR APPRENTICE): Rate controlled on metoprolol, amiodarone; continue b.i.d. Eliquis Assessment & Plan (03/20/2024 8:09 PM NEWSPAPER PRESS OPERATOR APPRENTICE): Stable on metoprolol, amiodarone and eliquis, conitnue [...] 10/06/2022 Assessment & Plan (04/28/2024 2:26 PM NEWSPAPER PRESS OPERATOR APPRENTICE): Continue treatments outpatient MWF, epogen on HD days, f/u with nephrology Assessment & Plan (04/09/2024 1:54 PM NEWSPAPER PRESS OPERATOR APPRENTICE): Tolerating HD MWF, at times using p.r.n. lorazepam with HD treatment, anxiety during access. Monitor electrolytes and weight Continue Epogen Assessment & Plan (04/06/2024 8:08 PM NEWSPAPER PRESS OPERATOR APPRENTICE): Continue HD MWF, p.r.n. lorazepam with HD treatment. Monitor electrolytes and weight Continue Epogen Assessment & Plan (03/31/2024 2:26 PM NEWSPAPER PRESS OPERATOR APPRENTICE): Continue HD MWF, continues to use p.r.n. lorazepam with HD treatments; daughter states this is helping,. Monitor electrolytes and weight Continue Epogen Assessment & Plan (03/20/2024 8:08 PM NEWSPAPER PRESS OPERATOR APPRENTICE): Continue HD MWF, continue to monitor electrolytes and weight, may use p.r.n. lorazepam with HD treatments; no reports of recent agitation with treatments Assessment & Plan (03/15/2024 10:52 AM NEWSPAPER PRESS OPERATOR APPRENTICE): Continue HD MWF, continue to monitor electrolytes [...] PM CDT): Receiving treatments MWF at [facility], intermittent anxiety, increase zyprexa to [...] PM CDT): Continue treatments MWF at [facility], TID calcium acetate, nephrology following, nepro tube feeds ordered, starting on jevity on admission due to no nepro available Assessment & Plan (01/18/2024 7:41 AM CDT): Continue with dialysis 3 times a week. Continue calcium acetate. Labs with dialysis. Preoperative cardiovascular examination 09/20/19 22 Chronic heart failure with preserved ejection fr action 07/02/2019 Assessment & Plan (04/28/2024 2:26 PM NEWSPAPER PRESS OPERATOR APPRENTICE): Stable, continue metoprolol, monitor weights with HD Assessment & Plan (03/20/2024 8:08 PM NEWSPAPER PRESS OPERATOR APPRENTICE): Stable on exam, continue metoprolol, monitor I/O, [...] 02/04 Assessment & Plan (04/06/2024 8:06 PM NEWSPAPER PRESS OPERATOR APPRENTICE): Weight is stable since rehab admission, continue exercise as tolerated, RD following Assessment & Plan (03/20/2024 8:09 PM NEWSPAPER PRESS OPERATOR APPRENTICE): Mobility is improving, recently stopped TF and [...] 02/04 Assessment & Plan (04/13/2024 12:48 PM NEWSPAPER PRESS OPERATOR APPRENTICE): Stable/compensated, continue HD treatments, weekly weights, metoprolol, statin amio, eliquis Assessment & Plan (03/20/2024 8:08 PM NEWSPAPER PRESS OPERATOR APPRENTICE): Stable on metoprolol and amiodarone, continue HD [...] a associated with type 2 diabetes mellitus ([facility]) 05/20/2013 Overview (08/11/2016): DMII WO CMP UNCNTRLD Assessment & Plan (04/13/2024 12:48 PM NEWSPAPER PRESS OPERATOR APPRENTICE): Well controlled on lantus 18 units hs with mealtime SSI, continue accuchecks ac and hs Assessment & Plan (03/15/2024 10:54 AM NEWSPAPER PRESS OPERATOR APPRENTICE): Glucose logs reviewed continue lantus 18 units [...] NOS Assessment & Plan (04/28/2024 2:28 PM NEWSPAPER PRESS OPERATOR APPRENTICE): Continue Lantus 18 units HS with mealtime SSI and daughter will assist with med administration Bp stable on metoprolol, monitor for BP goal ,140/<90 Continue accuchecks ac and hs Assessment & Plan (03/31/2024 2:28 PM NEWSPAPER PRESS OPERATOR APPRENTICE): Continue Lantus 18 units HS with mealtime SSI, glucose 236 this a.m., evening glucose 170, continue diabetic diet. BP stable on metoprolol Assessment & Plan (03/15/2024 10:53 AM NEWSPAPER PRESS OPERATOR APPRENTICE): BP stable on metoprolol 50mg daily, continue [...] NOS Assessment & Plan (04/13/2024 12:51 PM NEWSPAPER PRESS OPERATOR APPRENTICE): Subclinical hypothyroidism with TSH trending up to 92, encourage appropriate administration of medication in early a.m. on empty stomach, Synthroid increased to 200 mcg daily at previous visit with plan to repeat ths in 6 weeks, T3 and T4 normal Assessment & Plan (03/31/2024 2:30 PM NEWSPAPER PRESS OPERATOR APPRENTICE): Subclinical hypothyroidism with TSH trending up to 92, encourage appropriate administration of medication in early a.m. on empty stomach, Synthroid increased to 200 mcg daily Assessment & Plan (03/20/2024 8:09 PM NEWSPAPER PRESS OPERATOR APPRENTICE): Inpatient workup with Tsh elevated with normal t4, ensure medication administration appropriate early am on empty stomach; repeat TSH this week Assessment & Plan (03/15/2024 10:54 AM NEWSPAPER PRESS OPERATOR APPRENTICE): Inpatient workup with Tsh elevated with normal [...] drink = 0.6 oz pur e alcohol) [facility] Utilities Answer Date Recorded In the past 12 months has [place], gas, oil, or water [employer] threatened to shut off services in your [...] often do you attend chur ch or episcopal services? Never 02/26/2024 Do you belong to any clubs o r organizations such as orthodox groups, unions, fraternal or athletic groups, [...] any time in the past 12 m [facility], were you homeless or living in [...] on file Legal Sex Female 10:22 AM NEWSPAPER PRESS OPERATOR APPRENTICE Gender Identity Not on file Sexual Orientation Not on file Last Filed Vital Signs Vital Sign Reading Time Taken Comments Blood Pressure 120/66 07/01/2024 9:38 AM NEWSPAPER PRESS OPERATOR APPRENTICE Pulse 55 07/01/2024 9:38 AM NEWSPAPER PRESS OPERATOR APPRENTICE Temperature 36.5 C (97.7 F) 03/03/2024 11:40 AM CDT Respiratory Rate 22 03/05/2024 8:31 AM CDT Oxygen Saturation 97% 07/01/2024 9:38 AM NEWSPAPER PRESS OPERATOR APPRENTICE Inhaled Oxygen Concentration - - Weight 89.7 kg (197 lb 11.2 oz) 07/01/2024 9:38 AM NEWSPAPER PRESS OPERATOR APPRENTICE Height 162.6 cm (5' 4) 07/01/2024 9:38 AM NEWSPAPER PRESS OPERATOR APPRENTICE Body Mass Index 33.94 07/01/2024 9:38 AM NEWSPAPER PRESS OPERATOR APPRENTICE Results * POCT lipid panel (07/01/2024 9:57 AM NEWSPAPER PRESS OPERATOR APPRENTICE) Cholesterol, POC 138 mg/dL Comment:GLU = 176 HDL, POC 17 mg/dL Triglycerides, POC 168 mg/dL LDL Cholesterol POC 88 mg/dL Chol/HDL Ratio, POC 5.2 Non-HDL Cholesterol, POC 121 mg/dL Cholesterol Total, POC 138 mg/dL Capillary blood 07/01/2024 9 :57 AM NEWSPAPER PRESS OPERATOR APPRENTICE us Uriel Gillette MD POINT OF CARE [...] LAB BLOOD ORDERABLES Final Resu lt [facility] [id number] [facility] Department [place] [address] * (ABNORMAL) Hemoglobin A1c (02/27/2024 5:59 AM CDT) Hgb A1C 7.5(H) 4.0 - 5.6 % Estimated Average Glucose 169 mg/dL [place] Comment: The ADA recommends reporting an estimated Average Glucose (eAG) with all Hemoglobin A1c results using the equation derived from a study of 507 normal and diabetic adults. Minority populations were underrepresented and children were not included. (Diabetes Care 31:8443-0547, 2008). The eAG is not equivalent to a fasting glucose. Blood 02/27/2024 5:59 AM CDT 02/27/2024 7:11 AM CDT Asif Delgadillo MD LAB BLOOD ORDERABLES Final Re sult Performing Organization Address City/[facility]/ZIP Co de Phone Number [facility] [address] [facility] Department [place] [address] * Hepatitis panel, acute (05/08/2022 3:59 PM NEWSPAPER PRESS OPERATOR APPRENTICE) Hep A IgM Nonreactive Nonreactive [facility] Comment: Interpretive Data: If Hep A IgM Ab is reported as Equivocal, a new sample should be drawn in two weeks for testing. Current interpretive data was last revised on 19. Hep B core IgM Nonreactive Nonreactive [facility] Comment: Interpretive Data If HepB Core IgM Ab is reported as Equivocal, a new sample should be drawn in two weeks for testing. Current interpretive data was last revised on 19. Hep C Ab Nonreactive Nonreactive [facility] Comment: Interpretive Data Nonreactive: Antibodies [...] last revised on 2019. HepBsAg Nonreactive Nonreactive [facility] Blood 05/08/2022 3:59 PM NEWSPAPER PRESS OPERATOR APPRENTICE 05/08/2022 3:59 PM NEWSPAPER PRESS OPERATOR APPRENTICE us Mellissa Garcia DO LAB MICROBIOLOGY - GENERAL ORD ERABLES Final Result Performing Organization Address City/[facility]/ZIP Co de Phone Number [facility] [address] Department [place] [address] from Last 3 Months or Most Recently Relevant to Health Maintenance
--- OUTSIDE RECORDS SUMMARY | 2025-02-03 15:25 | XMS_ITS ---
Author Organization [facility] ([facility]) Address [address] [place] [id number] Care Team Providers Care Secretary To The Vice President Name Role Phone Unavailable Unavailable Unavailable Allergies, Adverse Reactions, Alerts Allergy Name Allergy Type Status Severity Reaction(s) Onset Date Inactive Date Treating Clinician Comments diphenhydrAMINE Allergy Active Unknown 05-29 19:59: 12 Sulfur Allergy Active Unknown 05-29 19:59: 00 Sulfa Antibiotics Allergy Active Unknown 05-29 19:58: 31 Statins Allergy Active Unknown 05-29 19:57: 37 NIFEdipine Allergy Active Unknown 05-29 19:57: 21 Nickel Allergy Active Unknown 05-29 19:57: 05 Medications Ordered Medication Name Filled Medication Name Start Date Stop Date Current Medication? Ordering Clinician Indication Dosage Frequency Signature (SIG) Comments Components Influenza, high-dose, quadrivalen t, PF 02-03 16:33: 08 Yes [id number] Number of Repeats Allowed: Frequency: One time only Mircera 01-31 05:00: 00 Yes [id number] Number of Repeats Allowed: Frequency: RADHA dosing, every two weeks Venofer 01-17 12:43: 51 Yes [id number] Number of Repeats Allowed: Frequency: One time a weekDosesO rdered: Maintenanc e Dose 50 Milligram Route: Intravenou s ONS [facility] 05-29 06:00: 00 Yes [id number] Number of Repeats Allowed: Frequency: Every Dialysis Treatment ondansetron hydrochlori de 2023-05 13:55: 27 Yes [id number] Number of Repeats Allowed: Frequency: Every 4 hours as needed Oxygen 2023-05 13:55: 15 Yes [id number] Number of Repeats Allowed: Frequency: As needed loperamide hydrochlori de 2023-05 13:55: 04 Yes [id number] Number of Repeats Allowed: Frequency: Every 4 hours as needed Antacid Extra Strength 2023-05 13:54: 26 Yes [id number] Number of Repeats Allowed: Frequency: Every 4 hours as needed acetaminoph en 2023-05 13:54: 08 Yes [id number] Number of Repeats Allowed: Frequency: Every 4 hours as needed Problems This patient has no known problems. Procedures Procedure Date / Time Performed Performing Clinician Amparo ce Details AV Fistula 2022-08-04 05:00:00 Access Site Upper Arm (Left) Access Use Start Date 2022-11-04 00:00:0 0 Central Venous Catheter (CVC)2022-04-10 06:00:00 Access Site Chest (Right) Access Use End Date 2022-11-27 05:00:00 DIALYSIS TREATMENT INFORMATION Conventional Hemodialysis Date Type Treatment Start Date Treatment End Date Pre-Treatment Vitals Post-Treatment Vitals Weight Gain BFR DFR Actual UF Dialysis Access [facility] 2024 In-Ce nter Hemod ialys is Treat ment 2025-02-02 T15:06:04. 000Z 2025-02-02 T18:26:04. 000Z BP Sitting (Pre-Dialysis) 117/51 mmHg BP Sitting (Post-D ialysis ) 122/ 55 mmHg Sitting Heart Rate Pre-Dialysis 58 BPM Sitting H eart Rate Post-Dialysis 59 BPM Temperature Pre-Dialysis 98.2 degF Temperature Post -Dialysis 98 degF January 30, 2025 In-Center Hemodialysis Treatment 0382-49-27M01:32:32.000Z 8418-77-78P96:30:31.000Z BP Sitting (Pre-Dialysis) 146/57 mmHg BP Sitting (Post-Dialysis) 132/50 mmHg Concurrent Access: falseAV Fistula Upper Arm (Left) Arterial Sitting Heart Rate Pre-Dialysis 81 BPM Sitting H eart Rate Post-Dialysis 55 BPM Temperature Pre-Dialysis 98 degF Temperature Post -Dialysis 98 degF January 28, 2025 In-Center Hemodialysis Treatment 8662-48-74Z76:09:59.000Z 7978-04-41L43:07:59.000Z BP Sitting (Pre-Dialysis) 150/60 mmHg BP Sitting (Post-Dialysis) 115/55 mmHg Concurrent Access: falseAV Fistula Upper Arm (Left) Arterial Sitting Heart Rate Pre-Dialysis 55 BPM Sitting H eart Rate Post-Dialysis 56 BPM Temperature Pre-Dialysis 97.9 degF Temperature Post -Dialysis 98 degF January 26, 2025 In-Center Hemodialysis Treatment 2223-89-68V50:23:08.000Z 0461-77-42B18:59:26.000Z BP Sitting (Pre-Dialysis) 142/59 mmHg BP Sitting (Post-Dialysis) 116/74 mmHg Concurrent Access: falseAV Fistula Upper Arm (Left) Arterial Sitting Heart Rate Pre-Dialysis 56 BPM Sitting H eart Rate Post-Dialysis 66 BPM Temperature Pre-Dialysis 98 degF Temperature Post -Dialysis 97.6 degF January 23, 2025 In-Center Hemodialysis Treatment 6228-34-55W44:57:19.000Z 7082-76-10A68:27:19.000Z BP Sitting (Pre-Dialysis) 124/48 mmHg BP Sitting (Post-Dialysis) 122/52 mmHg Concurrent Access: falseAV Fistula Upper Arm (Left) Arterial Sitting Heart Rate Pre-Dialysis 55 BPM Sitting H eart Rate Post-Dialysis 55 BPM Temperature Pre-Dialysis 97.8 degF Temperature Post -Dialysis 97.5 degF January 21, 2025 In-Center Hemodialysis Treatment 6516-89-33U80:30:00.000Z 6400-83-22U03:05:47.000Z BP Sitting (Pre-Dialysis) 156/55 mmHg BP Sitting (Post-Dialysis) 132/78 mmHg Concurrent Access: falseAV Fistula Upper Arm (Left) Arterial Sitting Heart Rate Pre-Dialysis 61 BPM Sitting H eart Rate Post-Dialysis 66 BPM Temperature Pre-Dialysis 97.3 degF Temperature Post -Dialysis 97.8 degF January 19, 2025 In-Center Hemodialysis Treatment 8836-50-58R91:24:14.000Z 7046-96-47I10:02:14.000Z BP Sitting (Pre-Dialysis) 176/71 mmHg BP Sitting (Post-Dialysis) 142/78 mmHg Concurrent Access: falseAV Fistula Upper Arm (Left) Arterial Sitting Heart Rate Pre-Dialysis 65 BPM Sitting H eart Rate Post-Dialysis 66 BPM Temperature Pre-Dialysis 98 degF Temperature Post -Dialysis 97.4 degF January 16, 2025 In-Center Hemodialysis Treatment 2973-97-84I23:14:26.000Z 4841-62-00Q34:38:25.000Z BP Sitting (Pre-Dialysis) 172/69 mmHg BP Sitting (Post-Dialysis) 135/78 mmHg Concurrent Access: falseAV Fistula Upper Arm (Left) Arterial Sitting Heart Rate Pre-Dialysis 55 BPM Sitting H eart Rate Post-Dialysis 66 BPM Temperature Pre-Dialysis 98 degF Temperature Post -Dialysis 97.6 degF January 14, 2025 In-Center Hemodialysis Treatment 2760-25-28K67:23:53.000Z 4294-74-51S07:51:53.000Z BP Sitting (Pre-Dialysis) 159/64 mmHg BP Sitting (Post-Dialysis) 117/69 mmHg Concurrent Access: falseAV Fistula Upper Arm (Left) Arterial Sitting Heart Rate Pre-Dialysis 55 BPM Sitting H eart Rate Post-Dialysis 63 BPM Temperature Pre-Dialysis 98 degF Temperature Post -Dialysis 97.3 degF January 12, 2025 In-Center Hemodialysis Treatment 8296-74-75I70:12:21.000Z 3603-31-40S27:44:20.000Z BP Sitting (Pre-Dialysis) 133/87 mmHg BP Sitting (Post-Dialysis) 133/68 mmHg Concurrent Access: falseAV Fistula Upper Arm (Left) Arterial Sitting Heart Rate Pre-Dialysis 63 BPM Sitting H eart Rate Post-Dialysis 59 BPM Temperature Pre-Dialysis 98 degF Temperature Post -Dialysis 98 degF January 09, 2025 In-Center Hemodialysis Treatment 4770-27-88I51:12:35.000Z 5078-15-65V69:54:35.000Z BP Sitting (Pre-Dialysis) 156/62 mmHg BP Sitting (Post-Dialysis) 160/57 mmHg Concurrent Access: falseAV Fistula Upper Arm (Left) Arterial Sitting Heart Rate Pre-Dialysis 57 BPM Sitting H eart Rate Post-Dialysis 58 BPM Temperature Pre-Dialysis 97.8 degF Temperature Post -Dialysis 97.8 degF January 07, 2025 In-Center Hemodialysis Treatment 5860-11-34F67:42:03.000Z 1494-46-34X71:17:13.000Z BP Sitting (Pre-Dialysis) 170/78 mmHg BP Sitting (Post-Dialysis) 158/77 mmHg Concurrent Access: falseAV Fistula Upper Arm (Left) Arterial Sitting Heart Rate Pre-Dialysis 52 BPM Sitting H eart Rate Post-Dialysis 59 BPM Temperature Pre-Dialysis 98 degF Temperature Post -Dialysis 98 degF January 05, 2025 In-Center Hemodialysis Treatment 7201-34-92Q38:55:30.000Z 6133-28-15W21:20:30.000Z BP Sitting (Pre-Dialysis) 180/73 mmHg BP Sitting (Post-Dialysis) 165/77 mmHg Concurrent Access: falseAV Fistula Upper Arm (Left) Arterial Sitting Heart Rate Pre-Dialysis 55 BPM Sitting H eart Rate Post-Dialysis 57 BPM Temperature Pre-Dialysis 98.2 degF Temperature Post -Dialysis 98 degF January 02, 2025 In-Center Hemodialysis Treatment 8970-62-22C14:14:00.000Z 7040-75-79T98:46:41.000Z BP Sitting (Pre-Dialysis) 139/57 mmHg BP Sitting (Post-Dialysis) 150/60 mmHg Concurrent Access: falseAV Fistula Upper Arm (Left) Arterial Sitting Heart Rate Pre-Dialysis 56 BPM Sitting H eart Rate Post-Dialysis 56 BPM Temperature Pre-Dialysis 97.7 degF Temperature Post -Dialysis 98 degF December 31, 2024 In-Center Hemodialysis Treatment 2695-11-86U89:26:08.000Z 7822-95-71S02:55:08.000Z BP Sitting (Pre-Dialysis) 159/74 mmHg BP Sitting (Post-Dialysis) 135/88 mmHg Concurrent Access: falseAV Fistula Upper Arm (Left) Arterial Sitting Heart Rate Pre-Dialysis 51 BPM Sitting H eart Rate Post-Dialysis 65 BPM Temperature Pre-Dialysis 98 degF Temperature Post -Dialysis 98 degF December 29, 2024 In-Center Hemodialysis Treatment 6299-59-15F40:11:36.000Z 0268-35-85D20:38:35.000Z BP Sitting (Pre-Dialysis) 140/65 mmHg BP Sitting (Post-Dialysis) 150/68 mmHg Concurrent Access: falseAV Fistula Upper Arm (Left) Arterial Sitting Heart Rate Pre-Dialysis 58 BPM Sitting H eart Rate Post-Dialysis 86 BPM Temperature Pre-Dialysis 96.8 degF Temperature Post -Dialysis 98 degF 2024 In-Center Hemodialysis Treatment 1884-93-84H95:18:47.000Z 3806-70-04E74:45:46.000Z BP Sitting (Pre-Dialysis) 144/56 mmHg BP Sitting (Post-Dialysis) 162/54 mmHg Concurrent Access: falseAV Fistula Upper Arm (Left) Arterial Sitting Heart Rate Pre-Dialysis 60 BPM Sitting H eart Rate Post-Dialysis 62 BPM Temperature Pre-Dialysis 97.6 degF Temperature Post -Dialysis 98 degF December 24, 2024 In-Center Hemodialysis Treatment 0182-71-07M69:10:00.000Z 8399-03-45R04:49:14.000Z BP Sitting (Pre-Dialysis) 163/49 mmHg BP Sitting (Post-Dialysis) 131/58 mmHg Concurrent Access: falseAV Fistula Upper Arm (Left) Arterial Sitting Heart Rate Pre-Dialysis 58 BPM Sitting H eart Rate Post-Dialysis 56 BPM Temperature Pre-Dialysis 97.7 degF Temperature Post -Dialysis 97.5 degF December 22, 2024 In-Center Hemodialysis Treatment 9762-68-75P43:11:00.000Z 2492-72-32H73:11:00.000Z BP Sitting (Pre-Dialysis) 132/59 mmHg BP Sitting (Post-Dialysis) 175/62 mmHg Concurrent Access: falseAV Fistula Upper Arm (Left) Arterial Sitting Heart Rate Pre-Dialysis 58 BPM Sitting H eart Rate Post-Dialysis 58 BPM Temperature Pre-Dialysis 97.2 degF Temperature Post -Dialysis 97.3 degF December 19, 2024 In-Center Hemodialysis Treatment 3674-95-86N26:24:00.000Z 7687-75-31H38:58:00.000Z BP Sitting (Pre-Dialysis) 137/49 mmHg BP Sitting (Post-Dialysis) 161/64 mmHg Concurrent Access: falseAV Fistula Upper Arm (Left) Arterial Sitting Heart Rate Pre-Dialysis 55 BPM Sitting H eart Rate Post-Dialysis 58 BPM Temperature Pre-Dialysis 97.7 degF Temperature Post -Dialysis 98 degF December 17, 2024 In-Center Hemodialysis Treatment 8552-74-86F69:39:00.000Z 7134-22-87Z92:00:00.000Z BP Sitting (Pre-Dialysis) 170/58 mmHg BP Sitting (Post-Dialysis) 193/97 mmHg Concurrent Access: falseAV Fistula Upper Arm (Left) Arterial Sitting Heart Rate Pre-Dialysis 58 BPM Sitting H eart Rate Post-Dialysis 60 BPM Temperature Pre-Dialysis 97.2 degF Temperature Post -Dialysis 98 degF December 15, 2024 In-Center Hemodialysis Treatment 9518-76-67Z33:06:00.000Z 6636-56-16Y82:55:19.000Z BP Sitting (Pre-Dialysis) 149/48 mmHg BP Sitting (Post-Dialysis) 147/59 mmHg Concurrent Access: falseAV Fistula Upper Arm (Left) Arterial Sitting Heart Rate Pre-Dialysis 51 BPM Sitting H eart Rate Post-Dialysis 67 BPM Temperature Pre-Dialysis 97.5 degF Temperature Post -Dialysis 98 degF December 10, 2024 In-Center Hemodialysis Treatment 5418-13-89B64:26:00.000Z 4410-91-24M02:19:43.000Z BP Sitting (Pre-Dialysis) 187/68 mmHg BP Sitting (Post-Dialysis) 144/58 mmHg Concurrent Access: falseAV Fistula Upper Arm (Left) Arterial Sitting Heart Rate Pre-Dialysis 58 BPM Sitting H eart Rate Post-Dialysis 66 BPM Temperature Pre-Dialysis 97.4 degF Temperature Post -Dialysis 98 degF December 08, 2024 In-Center Hemodialysis Treatment 8313-09-05B78:10:00.000Z 6568-43-07H77:43:11.000Z BP Sitting (Pre-Dialysis) 173/46 mmHg BP Sitting (Post-Dialysis) 157/42 mmHg Concurrent Access: falseAV Fistula Upper Arm (Left) Arterial Sitting Heart Rate Pre-Dialysis 50 BPM Sitting H eart Rate Post-Dialysis 51 BPM Temperature Pre-Dialysis 97.9 degF Temperature Post -Dialysis 97.8 degF December 05, 2024 In-Center Hemodialysis Treatment 6841-77-02O25:08:00.000Z 3236-42-47J54:40:02.000Z BP Sitting (Pre-Dialysis) 144/55 mmHg BP Sitting (Post-Dialysis) 194/78 mmHg Concurrent Access: falseAV Fistula Upper Arm (Left) Arterial Sitting Heart Rate Pre-Dialysis 57 BPM Sitting H eart Rate Post-Dialysis 56 BPM Temperature Pre-Dialysis 97.5 degF Temperature Post -Dialysis 98 degF December 03, 2024 In-Center Hemodialysis Treatment 7055-28-37G22:28:00.000Z 3424-80-20E33:52:21.000Z BP Sitting (Pre-Dialysis) 175/65 mmHg BP Sitting (Post-Dialysis) 133/55 mmHg Concurrent Access: falseAV Fistula Upper Arm (Left) Arterial Sitting Heart Rate Pre-Dialysis 55 BPM BP Standi ng (Post-Dialysis) 153/50 mmHg Temperature Pre-Dialysis 98 degF Sitting Heart Ra te Post-Dialysis 54 BPM Standing Heart Rate Post-Ruba lysis 53 BPM Temperature Post-Dialysis 97 .4 degF December 01, 2024 In-Center Hemodialysis Treatment 1839-88-63M06:11:07.000Z 4391-11-33S95:49:06.000Z BP Sitting (Pre-Dialysis) 159/65 mmHg BP Sitting (Post-Dialysis) 111/64 mmHg Concurrent Access: falseAV Fistula Upper Arm (Left) Arterial Sitting Heart Rate Pre-Dialysis 59 BPM Sitting H eart Rate Post-Dialysis 54 BPM Temperature Pre-Dialysis 98 degF Temperature Post -Dialysis 98 degF November 29, 2024 In-Center Hemodialysis Treatment 6546-76-76G51:26:03.000Z 4273-65-32E80:20:36.000Z BP Sitting (Pre-Dialysis) 167/62 mmHg BP Sitting (Post-Dialysis) 159/59 mmHg Concurrent Access: falseAV Fistula Upper Arm (Left) Arterial Sitting Heart Rate Pre-Dialysis 54 BPM Sitting H eart Rate Post-Dialysis 53 BPM Temperature Pre-Dialysis 98.2 degF Temperature Post -Dialysis 98.2 degF November 26, 2024 In-Center Hemodialysis Treatment 0689-14-49O75:26:20.000Z 1967-05-10I23:52:20.000Z BP Sitting (Pre-Dialysis) 181/67 mmHg BP Sitting (Post-Dialysis) 178/71 mmHg Concurrent Access: falseAV Fistula Upper Arm (Left) Arterial Sitting Heart Rate Pre-Dialysis 59 BPM Sitting H eart Rate Post-Dialysis 58 BPM Temperature Pre-Dialysis 97.4 degF Temperature Post -Dialysis 98.2 degF November 24, 2024 In-Center Hemodialysis Treatment 6149-58-27O50:09:11.000Z 0024-72-25U22:42:12.000Z BP Sitting (Pre-Dialysis) 155/62 mmHg BP Sitting (Post-Dialysis) 153/99 mmHg Concurrent Access: falseAV Fistula Upper Arm (Left) Arterial Sitting Heart Rate Pre-Dialysis 59 BPM Sitting H eart Rate Post-Dialysis 64 BPM Temperature Pre-Dialysis 98 degF Temperature Post -Dialysis 98.2 degF November 21, 2024 In-Center Hemodialysis Treatment 3718-22-12O31:05:22.000Z 9610-69-85C28:39:23.000Z BP Sitting (Pre-Dialysis) 155/73 mmHg BP Sitting (Post-Dialysis) 163/63 mmHg Concurrent Access: falseAV Fistula Upper Arm (Left) Arterial Sitting Heart Rate Pre-Dialysis 56 BPM Sitting H eart Rate Post-Dialysis 54 BPM Temperature Pre-Dialysis 98 degF Temperature Post -Dialysis 98 degF November 19, 2024 In-Center Hemodialysis Treatment 7973-68-51G52:13:12.000Z 3027-52-24Z00:48:12.000Z BP Sitting (Pre-Dialysis) 146/55 mmHg BP Sitting (Post-Dialysis) 135/80 mmHg Concurrent Access: falseAV Fistula Upper Arm (Left) Arterial Sitting Heart Rate Pre-Dialysis 48 BPM Sitting H eart Rate Post-Dialysis 61 BPM Temperature Pre-Dialysis 98 degF Temperature Post -Dialysis 97 degF November 17, 2024 In-Center Hemodialysis Treatment 8935-96-19N63:12:40.000Z 0934-26-32Y77:43:40.000Z BP Sitting (Pre-Dialysis) 126/73 mmHg BP Sitting (Post-Dialysis) 159/59 mmHg Concurrent Access: falseAV Fistula Upper Arm (Left) Arterial Sitting Heart Rate Pre-Dialysis 53 BPM Sitting H eart Rate Post-Dialysis 55 BPM Temperature Pre-Dialysis 98 degF Temperature Post -Dialysis 98.2 degF November 14, 2024 In-Center Hemodialysis Treatment 6518-31-00I84:21:50.000Z 3128-25-98P33:50:50.000Z BP Sitting (Pre-Dialysis) 126/48 mmHg BP Sitting (Post-Dialysis) 140/58 mmHg Concurrent Access: falseAV Fistula Upper Arm (Left) Arterial Sitting Heart Rate Pre-Dialysis 52 BPM Sitting H eart Rate Post-Dialysis 54 BPM Temperature Pre-Dialysis 97.8 degF Temperature Post -Dialysis 98 degF November 12, 2024 In-Center Hemodialysis Treatment 6341-37-51I55:31:18.000Z 8242-54-58J73:58:17.000Z BP Sitting (Pre-Dialysis) 133/83 mmHg BP Sitting (Post-Dialysis) 132/39 mmHg Concurrent Access: falseAV Fistula Upper Arm (Left) Arterial Sitting Heart Rate Pre-Dialysis 71 BPM Sitting H eart Rate Post-Dialysis 49 BPM Temperature Pre-Dialysis 97.1 degF Temperature Post -Dialysis 98 degF November 10, 2024 In-Center Hemodialysis Treatment 1256-32-54X10:20:45.000Z 7742-08-37U43:40:45.000Z BP Sitting (Pre-Dialysis) 146/56 mmHg BP Sitting (Post-Dialysis) 164/56 mmHg Concurrent Access: falseAV Fistula Upper Arm (Left) Arterial Sitting Heart Rate Pre-Dialysis 53 BPM Sitting H eart Rate Post-Dialysis 49 BPM Temperature Pre-Dialysis 98 degF Temperature Post -Dialysis 98 degF November 07, 2024 In-Center Hemodialysis Treatment 1274-19-82M52:12:56.000Z 7483-23-80D25:04:57.000Z BP Sitting (Pre-Dialysis) 171/70 mmHg BP Sitting (Post-Dialysis) 153/55 mmHg Concurrent Access: falseAV Fistula Upper Arm (Left) Arterial Sitting Heart Rate Pre-Dialysis 60 BPM Sitting H eart Rate Post-Dialysis 59 BPM Temperature Pre-Dialysis 97.6 degF November 05, 2024 In-Center Hemodialysis Treatment 7802-91-50X09:06:24.000Z 2706-86-02S30:36:23.000Z BP Sitting (Pre-Dialysis) 148/56 mmHg BP Sitting (Post-Dialysis) 153/50 mmHg Concurrent Access: falseAV Fistula Upper Arm (Left) Arterial Sitting Heart Rate Pre-Dialysis 63 BPM Sitting H eart Rate Post-Dialysis 59 BPM Temperature Pre-Dialysis 96.7 degF Temperature Post -Dialysis 98 degF November 03, 2024 In-Center Hemodialysis Treatment 7194-13-30C03:12:52.000Z 9439-62-95Z04:34:51.000Z BP Sitting (Pre-Dialysis) 147/76 mmHg BP Sitting (Post-Dialysis) 172/52 mmHg Concurrent Access: falseAV Fistula Upper Arm (Left) Arterial Sitting Heart Rate Pre-Dialysis 64 BPM Sitting H eart Rate Post-Dialysis 68 BPM Temperature Pre-Dialysis 98 degF Temperature Post -Dialysis 98 degF October 31, 2024 In-Center Hemodialysis Treatment 5525-23-34X74:06:03.000Z 3666-75-54L14:24:03.000Z BP Sitting (Pre-Dialysis) 161/63 mmHg BP Sitting (Post-Dialysis) 154/59 mmHg Concurrent Access: falseAV Fistula Upper Arm (Left) Arterial Sitting Heart Rate Pre-Dialysis 76 BPM BP Standing (Post-Dialysis) 153/57 mmHg Temperature Pre-Dialysis 97.4 degF Sitting Heart Ra te Post-Dialysis 69 BPM Standing Heart Rate Post-Ruba lysis 68 BPM Temperature Post-Dialysis 97 .2 degF October 29, 2024 In-Center Hemodialysis Treatment 3774-57-54Q48:16:30.000Z 8972-51-83R47:47:31.000Z BP Sitting (Pre-Dialysis) 176/67 mmHg BP Sitting (Post-Dialysis) 150/60 mmHg Concurrent Access: falseAV Fistula Upper Arm (Left) Arterial Sitting Heart Rate Pre-Dialysis 59 BPM Sitting H eart Rate Post-Dialysis 58 BPM Temperature Pre-Dialysis 97.5 degF Temperature Post -Dialysis 97 degF October 27, 2024 In-Center Hemodialysis Treatment 4202-16-89P10:04:00.000Z 7835-75-00I55:32:04.000Z BP Sitting (Pre-Dialysis) 167/102 mmHg BP Sitting (Post-Dialysis) 147/53 mmHg Concurrent Access: falseAV Fistula Upper Arm (Left) Arterial Sitting Heart Rate Pre-Dialysis 67 BPM Sitting H eart Rate Post-Dialysis 55 BPM Temperature Pre-Dialysis 97.5 degF Temperature Post -Dialysis 97.9 degF October 24, 2024 In-Center Hemodialysis Treatment 9290-57-39A75:23:15.000Z 1497-26-97C51:30:15.000Z BP Sitting (Pre-Dialysis) 167/76 mmHg BP Sitting (Post-Dialysis) 155/61 mmHg Concurrent Access: falseAV Fistula Upper Arm (Left) Arterial Sitting Heart Rate Pre-Dialysis 56 BPM Sitting H eart Rate Post-Dialysis 54 BPM Temperature Pre-Dialysis 97.3 degF Temperature Post -Dialysis 98 degF October 22, 2024 In-Center Hemodialysis Treatment 1694-94-64A75:04:43.000Z 9953-89-80M97:30:42.000Z BP Sitting (Pre-Dialysis) 159/60 mmHg BP Sitting (Post-Dialysis) 149/54 mmHg Concurrent Access: falseAV Fistula Upper Arm (Left) Arterial Sitting Heart Rate Pre-Dialysis 57 BPM Sitting H eart Rate Post-Dialysis 57 BPM Temperature Pre-Dialysis 97.5 degF Temperature Post -Dialysis 97.7 degF October 20, 2024 In-Center Hemodialysis Treatment 7957-85-71K59:00:00.000Z 4699-01-59M18:15:10.000Z BP Sitting (Pre-Dialysis) 146/56 mmHg BP Sitting (Post-Dialysis) 186/78 mmHg Concurrent Access: falseAV Fistula Upper Arm (Left) Arterial Sitting Heart Rate Pre-Dialysis 62 BPM Sitting H eart Rate Post-Dialysis 69 BPM Temperature Pre-Dialysis 97.8 degF Temperature Post -Dialysis 98.2 degF October 17, 2024 In-Center Hemodialysis Treatment 7308-55-35H10:18:29.000Z 3988-19-52K86:51:30.000Z BP Sitting (Pre-Dialysis) 171/69 mmHg BP Sitting (Post-Dialysis) 172/42 mmHg Concurrent Access: falseAV Fistula Upper Arm (Left) Arterial Sitting Heart Rate Pre-Dialysis 64 BPM Sitting H eart Rate Post-Dialysis 60 BPM Temperature Pre-Dialysis 98 degF Temperature Post -Dialysis 98 degF October 15, 2024 In-Center Hemodialysis Treatment 5472-43-67C16:58:00.000Z 4433-87-50C44:31:57.000Z BP Sitting (Pre-Dialysis) 147/68 mmHg BP Sitting (Post-Dialysis) 165/61 mmHg Concurrent Access: falseAV Fistula Upper Arm (Left) Arterial Sitting Heart Rate Pre-Dialysis 64 BPM Sitting H eart Rate Post-Dialysis 55 BPM Temperature Pre-Dialysis 97.9 degF Temperature Post -Dialysis 98 degF October 13, 2024 In-Center Hemodialysis Treatment 9002-72-20B22:47:27.000Z 6308-08-37O87:15:26.000Z BP Sitting (Pre-Dialysis) 152/75 mmHg BP Sitting (Post-Dialysis) 161/62 mmHg Concurrent Access: falseAV Fistula Upper Arm (Left) Arterial Sitting Heart Rate Pre-Dialysis 61 BPM Sitting H eart Rate Post-Dialysis 55 BPM Temperature Pre-Dialysis 97.4 degF Temperature Post -Dialysis 97.6 degF October 10, 2024 In-Center Hemodialysis Treatment 3996-04-55L43:04:38.000Z 5906-91-02A24:30:37.000Z BP Sitting (Pre-Dialysis) 151/62 mmHg BP Sitting (Post-Dialysis) 163/68 mmHg Concurrent Access: falseAV Fistula Upper Arm (Left) Arterial Sitting Heart Rate Pre-Dialysis 63 BPM Sitting H eart Rate Post-Dialysis 62 BPM Temperature Pre-Dialysis 98 degF Temperature Post -Dialysis 98.2 degF October 08, 2024 In-Center Hemodialysis Treatment 2709-98-08Z90:41:05.000Z 4586-74-45Z57:04:05.000Z BP Sitting (Pre-Dialysis) 155/79 mmHg BP Sitting (Post-Dialysis) 146/58 mmHg Concurrent Access: falseAV Fistula Upper Arm (Left) Arterial Sitting Heart Rate Pre-Dialysis 58 BPM Sitting H eart Rate Post-Dialysis 66 BPM Temperature Pre-Dialysis 98 degF Temperature Post -Dialysis 98 degF October 06, 2024 In-Center Hemodialysis Treatment 1169-44-84Y17:00:53.000Z 6373-95-48A12:34:52.000Z BP Sitting (Pre-Dialysis) 191/76 mmHg BP Sitting (Post-Dialysis) 140/111 mmHg Concurrent Access: falseAV Fistula Upper Arm (Left) Arterial Sitting Heart Rate Pre-Dialysis 73 BPM Sitting H eart Rate Post-Dialysis 67 BPM Temperature Pre-Dialysis 97.5 degF Temperature Post -Dialysis 98 degF October 03, 2024 In-Center Hemodialysis Treatment 9555-96-82Y70:59:27.000Z 4488-57-20O02:37:28.000Z BP Sitting (Pre-Dialysis) 169/54 mmHg BP Sitting (Post-Dialysis) 169/71 mmHg Concurrent Access: falseAV Fistula Upper Arm (Left) Arterial Sitting Heart Rate Pre-Dialysis 57 BPM Sitting H eart Rate Post-Dialysis 68 BPM Temperature Pre-Dialysis 97.8 degF Temperature Post -Dialysis 98.2 degF October 01, 2024 In-Center Hemodialysis Treatment 7184-16-12W26:56:25.000Z 1156-71-71J17:06:26.000Z BP Sitting (Pre-Dialysis) 181/67 mmHg BP Sitting (Post-Dialysis) 153/92 mmHg Concurrent Access: falseAV Fistula Upper Arm (Left) Arterial Sitting Heart Rate Pre-Dialysis 65 BPM Sitting H eart Rate Post-Dialysis 59 BPM Temperature Pre-Dialysis 97.8 degF Temperature Post -Dialysis 98.2 degF September 29, 2024 In-Center Hemodialysis Treatment 7132-72-77I08:54:53.000Z 4118-16-99P25:23:52.000Z BP Sitting (Pre-Dialysis) 173/54 mmHg BP Sitting (Post-Dialysis) 131/97 mmHg Concurrent Access: falseAV Fistula Upper Arm (Left) Arterial Sitting Heart Rate Pre-Dialysis 64 BPM Sitting H eart Rate Post-Dialysis 59 BPM Temperature Pre-Dialysis 97.6 degF Temperature Post -Dialysis 98 degF September 26, 2024 In-Center Hemodialysis Treatment 8895-37-70Z87:07:04.000Z 3225-88-32P50:39:04.000Z BP Sitting (Pre-Dialysis) 148/66 mmHg BP Sitting (Post-Dialysis) 153/55 mmHg Concurrent Access: falseAV Fistula Upper Arm (Left) Arterial Sitting Heart Rate Pre-Dialysis 66 BPM Sitting H eart Rate Post-Dialysis 73 BPM Temperature Pre-Dialysis 98 degF Temperature Post -Dialysis 98.1 degF September 24, 2024 In-Center Hemodialysis Treatment 4851-83-50J82:00:32.000Z 1315-59-59O23:33:31.000Z BP Sitting (Pre-Dialysis) 165/59 mmHg BP Sitting (Post-Dialysis) 152/56 mmHg Concurrent Access: falseAV Fistula Upper Arm (Left) Arterial Sitting Heart Rate Pre-Dialysis 50 BPM Sitting H eart Rate Post-Dialysis 52 BPM Temperature Pre-Dialysis 98.2 degF Temperature Post -Dialysis 98.2 degF September 22, 2024 In-Center Hemodialysis Treatment 1328-87-48V75:54:59.000Z 3969-40-96Y94:25:59.000Z BP Sitting (Pre-Dialysis) 140/57 mmHg BP Sitting (Post-Dialysis) 169/43 mmHg Concurrent Access: falseAV Fistula Upper Arm (Left) Arterial Sitting Heart Rate Pre-Dialysis 81 BPM Sitting H eart Rate Post-Dialysis 52 BPM Temperature Pre-Dialysis 97.6 degF Temperature Post -Dialysis 98 degF September 17, 2024 In-Center Hemodialysis Treatment 1873-67-20U30:01:11.000Z 1239-80-57F53:31:11.000Z BP Sitting (Pre-Dialysis) 167/65 mmHg BP Sitting (Post-Dialysis) 153/52 mmHg Concurrent Access: falseAV Fistula Upper Arm (Left) Arterial Sitting Heart Rate Pre-Dialysis 77 BPM Sitting H eart Rate Post-Dialysis 70 BPM Temperature Pre-Dialysis 98 degF Temperature Post -Dialysis 97.8 degF September 15, 2024 In-Center Hemodialysis Treatment 0730-70-00G20:03:58.000Z 4786-55-13S47:34:59.000Z BP Sitting (Pre-Dialysis) 176/54 mmHg BP Sitting (Post-Dialysis) 160/71 mmHg Concurrent Access: falseAV Fistula Upper Arm (Left) Arterial Sitting Heart Rate Pre-Dialysis 59 BPM Sitting H eart Rate Post-Dialysis 71 BPM Temperature Pre-Dialysis 98.1 degF Temperature Post -Dialysis 98 degF September 12, 2024 In-Center Hemodialysis Treatment 9462-97-34M11:10:00.000Z 4644-50-03L20:43:20.000Z BP Sitting (Pre-Dialysis) 164/73 mmHg BP Sitting (Post-Dialysis) 134/43 mmHg Concurrent Access: falseAV Fistula Upper Arm (Left) Arterial Sitting Heart Rate Pre-Dialysis 58 BPM Sitting H eart Rate Post-Dialysis 64 BPM Temperature Pre-Dialysis 98.1 degF Temperature Post -Dialysis 98 degF September 10, 2024 In-Center Hemodialysis Treatment 3839-08-04R88:57:38.000Z 4569-74-57H30:22:37.000Z BP Sitting (Pre-Dialysis) 143/60 mmHg BP Sitting (Post-Dialysis) 127/57 mmHg Concurrent Access: falseAV Fistula Upper Arm (Left) Arterial Sitting Heart Rate Pre-Dialysis 57 BPM Sitting H eart Rate Post-Dialysis 54 BPM Temperature Pre-Dialysis 98 degF Temperature Post -Dialysis 98.2 degF September 08, 2024 In-Center Hemodialysis Treatment 4659-98-29O79:17:05.000Z 1803-49-12C38:59:05.000Z BP Sitting (Pre-Dialysis) 165/69 mmHg BP Sitting (Post-Dialysis) 140/49 mmHg Concurrent Access: falseAV Fistula Upper Arm (Left) Arterial Sitting Heart Rate Pre-Dialysis 52 BPM Sitting H eart Rate Post-Dialysis 62 BPM Temperature Pre-Dialysis 98 degF Temperature Post -Dialysis 98 degF September 01, 2024 In-Center Hemodialysis Treatment 3000-13-12X40:03:11.000Z 2436-27-46D16:37:11.000Z BP Sitting (Pre-Dialysis) 190/58 mmHg BP Sitting (Post-Dialysis) 172/68 mmHg Concurrent Access: falseAV Fistula Upper Arm (Left) Arterial Sitting Heart Rate Pre-Dialysis 66 BPM Sitting H eart Rate Post-Dialysis 69 BPM Temperature Pre-Dialysis 98 degF Temperature Post -Dialysis 98 degF August 27, 2024 In-Center Hemodialysis Treatment 8091-79-88L72:52:00.000Z 8657-92-97O32:04:50.000Z BP Sitting (Pre-Dialysis) 189/69 mmHg BP Sitting (Post-Dialysis) 154/38 mmHg Concurrent Access: falseAV Fistula Upper Arm (Left) Arterial Sitting Heart Rate Pre-Dialysis 55 BPM Sitting H eart Rate Post-Dialysis 69 BPM Temperature Pre-Dialysis 97.4 degF Temperature Post -Dialysis 97.4 degF August 25, 2024 In-Center Hemodialysis Treatment 7712-42-02Y67:59:18.000Z 5410-60-92Q18:32:17.000Z BP Sitting (Pre-Dialysis) 188/62 mmHg BP Sitting (Post-Dialysis) 147/70 mmHg Concurrent Access: falseAV Fistula Upper Arm (Left) Arterial Sitting Heart Rate Pre-Dialysis 54 BPM Sitting H eart Rate Post-Dialysis 68 BPM Temperature Pre-Dialysis 98 degF Temperature Post -Dialysis 98.2 degF August 22, 2024 In-Center Hemodialysis Treatment 4702-86-38C85:17:26.000Z 2391-04-14I30:30:27.000Z BP Sitting (Pre-Dialysis) 170/71 mmHg BP Sitting (Post-Dialysis) 188/68 mmHg Concurrent Access: falseAV Fistula Upper Arm (Left) Arterial Sitting Heart Rate Pre-Dialysis 55 BPM Sitting H eart Rate Post-Dialysis 56 BPM Temperature Pre-Dialysis 98 degF August 20, 2024 In-Center Hemodialysis Treatment 0113-44-27W13:14:40.000Z 7461-47-61J88:48:40.000Z BP Sitting (Pre-Dialysis) 174/66 mmHg BP Sitting (Post-Dialysis) 142/48 mmHg Concurrent Access: falseAV Fistula Upper Arm (Left) Arterial Sitting Heart Rate Pre-Dialysis 55 BPM Sitting H eart Rate Post-Dialysis 60 BPM Temperature Pre-Dialysis 97.8 degF Temperature Post -Dialysis 97.4 degF August 18, 2024 In-Center Hemodialysis Treatment 9901-40-90X54:49:00.000Z 4759-94-09B29:20:00.000Z BP Sitting (Pre-Dialysis) 201/69 mmHg BP Sitting (Post-Dialysis) 159/56 mmHg Concurrent Access: falseAV Fistula Upper Arm (Left) Arterial Sitting Heart Rate Pre-Dialysis 58 BPM August 15, 2024 In-Center Hemodialysis Treatment 3844-60-38N15:19:52.000Z 2712-41-11N34:56:52.000Z BP Sitting (Pre-Dialysis) 184/71 mmHg BP Sitting (Post-Dialysis) 189/71 mmHg Concurrent Access: falseAV Fistula Upper Arm (Left) Arterial Sitting Heart Rate Pre-Dialysis 57 BPM Sitting H eart Rate Post-Dialysis 61 BPM Temperature Pre-Dialysis 97.7 degF Temperature Post -Dialysis 97.3 degF August 13, 2024 In-Center Hemodialysis Treatment 5251-26-01N20:12:40.000Z 0617-29-90D70:49:40.000Z BP Sitting (Pre-Dialysis) 150/95 mmHg BP Sitting (Post-Dialysis) 131/57 mmHg Concurrent Access: falseAV Fistula Upper Arm (Left) Arterial Sitting Heart Rate Pre-Dialysis 53 BPM Sitting H eart Rate Post-Dialysis 56 BPM Temperature Pre-Dialysis 98.2 degF Temperature Post -Dialysis 97.7 degF August 11, 2024 In-Center Hemodialysis Treatment 9747-93-89K57:08:00.000Z 6928-79-22D49:48:07.000Z BP Sitting (Pre-Dialysis) 135/67 mmHg BP Sitting (Post-Dialysis) 159/58 mmHg Concurrent Access: falseAV Fistula Upper Arm (Left) Arterial Sitting Heart Rate Pre-Dialysis 52 BPM Sitting H eart Rate Post-Dialysis 52 BPM Temperature Pre-Dialysis 97.1 degF Temperature Post -Dialysis 97 degF August 08, 2024 In-Center Hemodialysis Treatment 4416-64-64H26:08:00.000Z 5713-40-36P12:40:59.000Z BP Sitting (Pre-Dialysis) 144/58 mmHg BP Sitting (Post-Dialysis) 152/68 mmHg Concurrent Access: falseAV Fistula Upper Arm (Left) Arterial Sitting Heart Rate Pre-Dialysis 53 BPM Sitting H eart Rate Post-Dialysis 56 BPM Temperature Pre-Dialysis 97 degF Temperature Post -Dialysis 97.5 degF August 06, 2024 In-Center Hemodialysis Treatment 8877-61-81D76:54:26.000Z 5729-59-88V74:17:25.000Z BP Sitting (Pre-Dialysis) 119/49 mmHg BP Sitting (Post-Dialysis) 148/58 mmHg Concurrent Access: falseAV Fistula Upper Arm (Left) Arterial Sitting Heart Rate Pre-Dialysis 56 BPM Sitting H eart Rate Post-Dialysis 58 BPM Temperature Pre-Dialysis 98 degF Temperature Post -Dialysis 97.2 degF August 04, 2024 In-Center Hemodialysis Treatment 1791-99-05O67:15:45.000Z 1868-43-31X55:36:45.000Z BP Sitting (Pre-Dialysis) 180/78 mmHg BP Sitting (Post-Dialysis) 147/54 mmHg Concurrent Access: falseAV Fistula Upper Arm (Left) Arterial Sitting Heart Rate Pre-Dialysis 58 BPM Sitting H eart Rate Post-Dialysis 66 BPM Temperature Pre-Dialysis 97.2 degF Temperature Post -Dialysis 98.2 degF August 01, 2024 In-Center Hemodialysis Treatment 7491-08-69Z68:36:00.000Z 0781-69-89W23:08:57.000Z BP Sitting (Pre-Dialysis) 173/54 mmHg BP Sitting (Post-Dialysis) 134/53 mmHg Concurrent Access: falseAV Fistula Upper Arm (Left) Arterial Sitting Heart Rate Pre-Dialysis 53 BPM Sitting H eart Rate Post-Dialysis 50 BPM Temperature Pre-Dialysis 97.9 degF Temperature Post -Dialysis 98 degF July 30, 2024 In-Center Hemodialysis Treatment 8942-07-28K05:11:30.000Z 5613-02-16I91:11:31.000Z BP Sitting (Pre-Dialysis) 157/62 mmHg BP Sitting (Post-Dialysis) 158/69 mmHg Concurrent Access: falseAV Fistula Upper Arm (Left) Arterial Sitting Heart Rate Pre-Dialysis 54 BPM Sitting H eart Rate Post-Dialysis 78 BPM Temperature Pre-Dialysis 97.4 degF Temperature Post -Dialysis 98.2 degF July 28, 2024 In-Center Hemodialysis Treatment 5666-67-29A98:26:00.000Z 2370-02-36U04:32:21.000Z BP Sitting (Pre-Dialysis) 184/55 mmHg BP Sitting (Post-Dialysis) 144/71 mmHg Concurrent Access: falseAV Fistula Upper Arm (Left) Arterial Sitting Heart Rate Pre-Dialysis 53 BPM BP Standi ng (Post-Dialysis) 155/60 mmHg Temperature Pre-Dialysis 98 degF Sitting Heart Ra te Post-Dialysis 78 BPM Standing Heart Rate Post-Ruba lysis 64 BPM Temperature Post-Dialysis 98 .3 degF July 25, 2024 In-Center Hemodialysis Treatment 6896-41-08S16:30:07.000Z 3731-25-81C08:01:07.000Z BP Sitting (Pre-Dialysis) 157/53 mmHg BP Sitting (Post-Dialysis) 140/51 mmHg Concurrent Access: falseAV Fistula Upper Arm (Left) Arterial Sitting Heart Rate Pre-Dialysis 54 BPM Sitting H eart Rate Post-Dialysis 63 BPM Temperature Pre-Dialysis 97 degF Temperature Post -Dialysis 97.8 degF July 23, 2024 In-Center Hemodialysis Treatment 8054-36-20P87:44:07.000Z 0929-60-86F00:15:06.000Z BP Sitting (Pre-Dialysis) 136/57 mmHg BP Sitting (Post-Dialysis) 151/51 mmHg Concurrent Access: falseAV Fistula Upper Arm (Left) Arterial Sitting Heart Rate Pre-Dialysis 68 BPM Sitting H eart Rate Post-Dialysis 54 BPM Temperature Pre-Dialysis 97.8 degF Temperature Post -Dialysis 97.5 degF July 18, 2024 In-Center Hemodialysis Treatment 6223-98-06W48:43:42.000Z 9570-68-13D97:13:41.000Z BP Sitting (Pre-Dialysis) 131/47 mmHg BP Sitting (Post-Dialysis) 150/48 mmHg Concurrent Access: falseAV Fistula Upper Arm (Left) Arterial Sitting Heart Rate Pre-Dialysis 58 BPM Sitting H eart Rate Post-Dialysis 50 BPM Temperature Pre-Dialysis 97.2 degF Temperature Post -Dialysis 98.1 degF July 16, 2024 In-Center Hemodialysis Treatment 2874-19-12Z34:35:08.000Z 9476-98-77P72:42:09.000Z BP Sitting (Pre-Dialysis) 183/73 mmHg BP Sitting (Post-Dialysis) 156/51 mmHg Concurrent Access: falseAV Fistula Upper Arm (Left) Arterial Sitting Heart Rate Pre-Dialysis 57 BPM Sitting H eart Rate Post-Dialysis 54 BPM Temperature Pre-Dialysis 98 degF Temperature Post -Dialysis 98.2 degF July 14, 2024 In-Center Hemodialysis Treatment 0801-20-45D19:42:00.000Z 9849-74-11E11:13:49.000Z BP Sitting (Pre-Dialysis) 147/84 mmHg BP Sitting (Post-Dialysis) 153/56 mmHg Concurrent Access: falseAV Fistula Upper Arm (Left) Arterial Sitting Heart Rate Pre-Dialysis 69 BPM Sitting H eart Rate Post-Dialysis 58 BPM Temperature Pre-Dialysis 97.2 degF Temperature Post -Dialysis 97.2 degF July 11, 2024 In-Center Hemodialysis Treatment 2420-15-39D22:43:02.000Z 7757-79-80O15:03:02.000Z BP Sitting (Pre-Dialysis) 158/53 mmHg BP Sitting (Post-Dialysis) 163/55 mmHg Concurrent Access: falseAV Fistula Upper Arm (Left) Arterial Sitting Heart Rate Pre-Dialysis 55 BPM Sitting H eart Rate Post-Dialysis 53 BPM Temperature Pre-Dialysis 97.3 degF Temperature Post -Dialysis 97.3 degF July 09, 2024 In-Center Hemodialysis Treatment 7173-61-86X62:41:46.000Z 6728-42-13M11:24:46.000Z BP Sitting (Pre-Dialysis) 135/54 mmHg BP Sitting (Post-Dialysis) 123/39 mmHg Concurrent Access: falseAV Fistula Upper Arm (Left) Arterial Sitting Heart Rate Pre-Dialysis 54 BPM Sitting H eart Rate Post-Dialysis 55 BPM Temperature Pre-Dialysis 97.7 degF Temperature Post -Dialysis 97.9 degF July 07, 2024 In-Center Hemodialysis Treatment 1900-82-82T87:45:14.000Z 0033-65-94L40:02:14.000Z BP Sitting (Pre-Dialysis) 141/49 mmHg BP Sitting (Post-Dialysis) 152/53 mmHg Concurrent Access: falseAV Fistula Upper Arm (Left) Arterial Sitting Heart Rate Pre-Dialysis 53 BPM Sitting H eart Rate Post-Dialysis 51 BPM Temperature Pre-Dialysis 97.6 degF Temperature Post -Dialysis 97.8 degF July 04, 2024 In-Center Hemodialysis Treatment 3107-20-63M89:13:00.000Z 8195-84-89N19:19:07.000Z BP Sitting (Pre-Dialysis) 150/59 mmHg BP Sitting (Post-Dialysis) 138/44 mmHg Concurrent Access: falseAV Fistula Upper Arm (Left) Arterial Sitting Heart Rate Pre-Dialysis 56 BPM Sitting H eart Rate Post-Dialysis 56 BPM Temperature Pre-Dialysis 97.1 degF July 02, 2024 In-Center Hemodialysis Treatment 0924-18-02Y16:36:36.000Z 4884-63-47Z49:20:35.000Z BP Sitting (Pre-Dialysis) 152/58 mmHg BP Sitting (Post-Dialysis) 133/58 mmHg Concurrent Access: falseAV Fistula Upper Arm (Left) Arterial Sitting Heart Rate Pre-Dialysis 59 BPM Sitting H eart Rate Post-Dialysis 88 BPM Temperature Pre-Dialysis 97.2 degF Temperature Post -Dialysis 98.4 degF June 27, 2024 In-Center Hemodialysis Treatment 2527-04-57V53:30:00.000Z 3399-59-38F05:11:01.000Z BP Sitting (Pre-Dialysis) 124/47 mmHg BP Sitting (Post-Dialysis) 141/66 mmHg Concurrent Access: falseAV Fistula Upper Arm (Left) Arterial Sitting Heart Rate Pre-Dialysis 53 BPM Sitting H eart Rate Post-Dialysis 56 BPM Temperature Pre-Dialysis 97.8 degF Temperature Post -Dialysis 98 degF June 25, 2024 In-Center Hemodialysis Treatment 1376-34-46H29:38:00.000Z 9582-00-77Z88:06:28.000Z BP Sitting (Pre-Dialysis) 125/58 mmHg BP Sitting (Post-Dialysis) 128/51 mmHg Concurrent Access: falseAV Fistula Upper Arm (Left) Arterial Sitting Heart Rate Pre-Dialysis 66 BPM Sitting H eart Rate Post-Dialysis 61 BPM Temperature Pre-Dialysis 97.5 degF Temperature Post -Dialysis 97.4 degF June 23, 2024 In-Center Hemodialysis Treatment 6363-11-70U19:33:00.000Z 2862-86-34R23:08:31.000Z BP Sitting (Pre-Dialysis) 150/60 mmHg BP Sitting (Post-Dialysis) 147/57 mmHg Concurrent Access: falseAV Fistula Upper Arm (Left) Arterial Sitting Heart Rate Pre-Dialysis 59 BPM Sitting H eart Rate Post-Dialysis 65 BPM Temperature Pre-Dialysis 98.2 degF Temperature Post -Dialysis 97 degF June 16, 2024 In-Center Hemodialysis Treatment 2999-66-93B64:45:21.000Z 6457-47-27F78:14:20.000Z BP Sitting (Pre-Dialysis) 158/125 mmHg BP Sitting (Post-Dialysis) 132/56 mmHg Concurrent Access: falseAV Fistula Upper Arm (Left) Arterial Sitting Heart Rate Pre-Dialysis 70 BPM Sitting H eart Rate Post-Dialysis 78 BPM Temperature Pre-Dialysis 98.2 degF Temperature Post -Dialysis 97.2 degF June 13, 2024 In-Center Hemodialysis Treatment 8940-45-00I12:27:56.000Z 6187-67-69K49:59:56.000Z BP Sitting (Pre-Dialysis) 183/64 mmHg BP Sitting (Post-Dialysis) 180/60 mmHg Concurrent Access: falseAV Fistula Upper Arm (Left) Arterial Sitting Heart Rate Pre-Dialysis 57 BPM Sitting H eart Rate Post-Dialysis 55 BPM Temperature Pre-Dialysis 97 degF Temperature Post -Dialysis 97.8 degF June 11, 2024 In-Center Hemodialysis Treatment 8267-57-14D20:27:30.000Z 8237-21-23R48:59:30.000Z BP Sitting (Pre-Dialysis) 159/85 mmHg BP Sitting (Post-Dialysis) 171/55 mmHg Concurrent Access: falseAV Fistula Upper Arm (Left) Arterial Sitting Heart Rate Pre-Dialysis 64 BPM Sitting H eart Rate Post-Dialysis 55 BPM Temperature Pre-Dialysis 98 degF Temperature Post -Dialysis 98 degF June 09, 2024 In-Center Hemodialysis Treatment 0125-57-53S13:29:46.000Z 0605-74-52G95:03:46.000Z BP Sitting (Pre-Dialysis) 191/66 mmHg BP Sitting (Post-Dialysis) 137/69 mmHg Concurrent Access: falseAV Fistula Upper Arm (Left) Arterial Sitting Heart Rate Pre-Dialysis 59 BPM Sitting H eart Rate Post-Dialysis 69 BPM Temperature Pre-Dialysis 97.8 degF Temperature Post -Dialysis 97.2 degF June 06, 2024 In-Center Hemodialysis Treatment 1447-37-54S92:45:22.000Z 0687-77-69Y15:09:21.000Z BP Sitting (Pre-Dialysis) 151/65 mmHg BP Sitting (Post-Dialysis) 140/56 mmHg Concurrent Access: falseAV Fistula Upper Arm (Left) Arterial Sitting Heart Rate Pre-Dialysis 67 BPM Sitting H eart Rate Post-Dialysis 65 BPM Temperature Pre-Dialysis 97.9 degF Temperature Post -Dialysis 97 degF June 04, 2024 In-Center Hemodialysis Treatment 5879-17-54Z97:39:49.000Z 0220-27-52F47:02:48.000Z BP Sitting (Pre-Dialysis) 163/85 mmHg BP Sitting (Post-Dialysis) 143/53 mmHg Concurrent Access: falseAV Fistula Upper Arm (Left) Arterial Sitting Heart Rate Pre-Dialysis 64 BPM Sitting H eart Rate Post-Dialysis 60 BPM Temperature Pre-Dialysis 97.8 degF Temperature Post -Dialysis 97.8 degF June 02, 2024 In-Center Hemodialysis Treatment 0209-68-55H37:22:14.000Z 7980-94-19X59:46:15.000Z BP Sitting (Pre-Dialysis) 182/65 mmHg BP Sitting (Post-Dialysis) 123/81 mmHg Concurrent Access: falseAV Fistula Upper Arm (Left) Arterial BP Standing (Pre-Dialysis) 188/77 mmHg Sitti ng Heart Rate Post-Dialysis 72 BPM Sitting Heart Rate Pre-Dialysis 63 BPM Temperatu re Post-Dialysis 97.5 degF Standing Heart Rate Pre-Dialysis 66 BPM Temperature Pre-Dialysis 96.8 degF May 30, 2024 In-Center Hemodialysis Treatment 8835-26-33L53:33:05.000Z 6452-41-44Q93:05:05.000Z BP Sitting (Pre-Dialysis) 149/73 mmHg BP Sitting (Post-Dialysis) 132/69 mmHg Concurrent Access: falseAV Fistula Upper Arm (Left) Arterial Sitting Heart Rate Pre-Dialysis 54 BPM Sitting H eart Rate Post-Dialysis 69 BPM Temperature Pre-Dialysis 98 degF Temperature Post -Dialysis 98.2 degF May 28, 2024 In-Center Hemodialysis Treatment 3012-60-29Y96:34:40.000Z 6800-92-21N85:02:40.000Z BP Sitting (Pre-Dialysis) 169/55 mmHg BP Sitting (Post-Dialysis) 140/53 mmHg Concurrent Access: falseAV Fistula Upper Arm (Left) Arterial Sitting Heart Rate Pre-Dialysis 52 BPM Sitting H eart Rate Post-Dialysis 69 BPM Temperature Pre-Dialysis 98 degF Temperature Post -Dialysis 98.2 degF May 26, 2024 In-Center Hemodialysis Treatment 0773-24-86H64:20:00.000Z 3033-02-99L75:56:46.000Z BP Sitting (Pre-Dialysis) 196/56 mmHg BP Sitting (Post-Dialysis) 147/59 mmHg Concurrent Access: falseAV Fistula Upper Arm (Left) Arterial Sitting Heart Rate Pre-Dialysis 51 BPM Sitting H eart Rate Post-Dialysis 60 BPM Temperature Pre-Dialysis 97.1 degF Temperature Post -Dialysis 98.5 degF May 23, 2024 In-Center Hemodialysis Treatment 0536-42-75M72:34:17.000Z 0984-82-03S71:02:16.000Z BP Sitting (Pre-Dialysis) 173/60 mmHg BP Sitting (Post-Dialysis) 160/62 mmHg Concurrent Access: falseAV Fistula Upper Arm (Left) Arterial Sitting Heart Rate Pre-Dialysis 52 BPM Sitting H eart Rate Post-Dialysis 53 BPM Temperature Pre-Dialysis 98 degF Temperature Post -Dialysis 98 degF May 21, 2024 In-Center Hemodialysis Treatment 7626-46-56M59:28:45.000Z 9087-21-54O11:07:44.000Z BP Sitting (Pre-Dialysis) 173/59 mmHg BP Sitting (Post-Dialysis) 162/77 mmHg Concurrent Access: falseAV Fistula Upper Arm (Left) Arterial Sitting Heart Rate Pre-Dialysis 57 BPM Sitting H eart Rate Post-Dialysis 81 BPM Temperature Pre-Dialysis 97.8 degF Temperature Post -Dialysis 97.6 degF May 19, 2024 In-Center Hemodialysis Treatment 0692-25-93P76:31:31.000Z 4475-28-84D84:58:31.000Z BP Sitting (Pre-Dialysis) 161/60 mmHg BP Sitting (Post-Dialysis) 165/70 mmHg Concurrent Access: falseAV Fistula Upper Arm (Left) Arterial Sitting Heart Rate Pre-Dialysis 57 BPM Sitting H eart Rate Post-Dialysis 59 BPM Temperature Pre-Dialysis 97.8 degF Temperature Post -Dialysis 97.4 degF May 17, 2024 In-Center Hemodialysis Treatment 5553-76-70O26:59:19.000Z 9141-64-50X89:28:04.000Z BP Sitting (Pre-Dialysis) 170/60 mmHg BP Sitting (Post-Dialysis) 171/73 mmHg Concurrent Access: falseAV Fistula Upper Arm (Left) Arterial Sitting Heart Rate Pre-Dialysis 51 BPM Sitting H eart Rate Post-Dialysis 58 BPM Temperature Pre-Dialysis 97.8 degF Temperature Post -Dialysis 97.8 degF May 14, 2024 In-Center Hemodialysis Treatment 4530-50-41Q97:40:00.000Z 1247-14-35Q75:14:26.000Z BP Sitting (Pre-Dialysis) 184/62 mmHg BP Sitting (Post-Dialysis) 175/53 mmHg Concurrent Access: falseAV Fistula Upper Arm (Left) Arterial Sitting Heart Rate Pre-Dialysis 54 BPM Sitting H eart Rate Post-Dialysis 52 BPM Temperature Pre-Dialysis 97 degF Temperature Post -Dialysis 97.5 degF May 09, 2024 In-Center Hemodialysis Treatment 5512-51-06E20:43:00.000Z 8526-52-45W75:04:00.000Z BP Sitting (Pre-Dialysis) 190/58 mmHg BP Sitting (Post-Dialysis) 181/56 mmHg Concurrent Access: falseAV Fistula Upper Arm (Left) Arterial Sitting Heart Rate Pre-Dialysis 51 BPM Sitting H eart Rate Post-Dialysis 48 BPM Temperature Pre-Dialysis 97.2 degF Temperature Post -Dialysis 97 degF May 06, 2024 In-Center Hemodialysis Treatment 8733-09-92R83:45:37.000Z 5154-18-57Z36:49:37.000Z BP Sitting (Pre-Dialysis) 171/58 mmHg BP Sitting (Post-Dialysis) 159/62 mmHg Concurrent Access: falseAV Fistula Upper Arm (Left) Arterial Sitting Heart Rate Pre-Dialysis 49 BPM Sitting H eart Rate Post-Dialysis 58 BPM Temperature Pre-Dialysis 98 degF Temperature Post -Dialysis 98 degF May 04, 2024 In-Center Hemodialysis Treatment 5488-37-83N41:39:23.000Z 5177-17-80Q02:15:23.000Z BP Sitting (Pre-Dialysis) 149/50 mmHg BP Sitting (Post-Dialysis) 160/51 mmHg Concurrent Access: falseAV Fistula Upper Arm (Left) Arterial Sitting Heart Rate Pre-Dialysis 55 BPM Sitting H eart Rate Post-Dialysis 53 BPM Temperature Pre-Dialysis 98 degF Temperature Post -Dialysis 98 degF May 02, 2024 In-Center Hemodialysis Treatment 1323-78-60E55:01:20.000Z 1998-72-49B57:28:25.000Z BP Sitting (Pre-Dialysis) 244/82 mmHg BP Sitting (Post-Dialysis) 213/81 mmHg Concurrent Access: falseAV Fistula Upper Arm (Left) Arterial Sitting Heart Rate Pre-Dialysis 53 BPM Sitting H eart Rate Post-Dialysis 48 BPM Temperature Pre-Dialysis 98.2 degF Temperature Post -Dialysis 98.2 degF April 29, 2024 In-Center Hemodialysis Treatment 0879-73-19V79:45:24.000Z 2352-38-14L46:38:19.000Z BP Sitting (Pre-Dialysis) 164/60 mmHg BP Sitting (Post-Dialysis) 169/68 mmHg Concurrent Access: falseAV Fistula Upper Arm (Left) Arterial Sitting Heart Rate Pre-Dialysis 61 BPM Sitting H eart Rate Post-Dialysis 59 BPM Temperature Pre-Dialysis 97.6 degF Temperature Post -Dialysis 98.2 degF April 28, 2024 In-Center Hemodialysis Treatment 6860-78-19M11:38:52.000Z 3686-72-92J16:10:57.000Z BP Sitting (Pre-Dialysis) 213/75 mmHg BP Sitting (Post-Dialysis) 178/69 mmHg Concurrent Access: falseAV Fistula Upper Arm (Left) Arterial Sitting Heart Rate Pre-Dialysis 53 BPM Sitting H eart Rate Post-Dialysis 51 BPM Temperature Pre-Dialysis 96.8 degF Temperature Post -Dialysis 97.6 degF April 25, 2024 In-Center Hemodialysis Treatment 7975-22-91E05:12:00.000Z 6849-13-08G96:30:00.000Z BP Sitting (Pre-Dialysis) 176/99 mmHg BP Sitting (Post-Dialysis) 185/81 mmHg Concurrent Access: falseAV Fistula Upper Arm (Left) Arterial Sitting Heart Rate Pre-Dialysis 51 BPM Sitting H eart Rate Post-Dialysis 49 BPM Temperature Pre-Dialysis 96.8 degF Temperature Post -Dialysis 97.4 degF April 23, 2024 In-Center Hemodialysis Treatment 2693-74-77W55:17:00.000Z 6115-03-20I50:47:00.000Z BP Sitting (Pre-Dialysis) 154/61 mmHg BP Sitting (Post-Dialysis) 209/73 mmHg Concurrent Access: falseAV Fistula Upper Arm (Left) Arterial Sitting Heart Rate Pre-Dialysis 46 BPM Sitting H eart Rate Post-Dialysis 50 BPM Temperature Pre-Dialysis 97.2 degF Temperature Post -Dialysis 98 degF April 21, 2024 In-Center Hemodialysis Treatment 7103-16-00H54:02:00.000Z 8961-43-25S10:31:00.000Z BP Sitting (Pre-Dialysis) 162/81 mmHg BP Sitting (Post-Dialysis) 159/103 mmHg Concurrent Access: falseAV Fistula Upper Arm (Left) Arterial Sitting Heart Rate Pre-Dialysis 60 BPM Sitting H eart Rate Post-Dialysis 50 BPM Temperature Pre-Dialysis 98.3 degF Temperature Post -Dialysis 97.6 degF April 18, 2024 In-Center Hemodialysis Treatment 0901-26-18S38:16:00.000Z 8855-97-76Z71:46:00.000Z BP Sitting (Pre-Dialysis) 162/102 mmHg BP Sitting (Post-Dialysis) 160/69 mmHg Concurrent Access: falseAV Fistula Upper Arm (Left) Arterial Sitting Heart Rate Pre-Dialysis 52 BPM Sitting H eart Rate Post-Dialysis 64 BPM Temperature Pre-Dialysis 98.1 degF Temperature Post -Dialysis 97.9 degF April 16, 2024 In-Center Hemodialysis Treatment 7452-86-58R89:19:00.000Z 6404-80-83H76:51:49.000Z BP Sitting (Pre-Dialysis) 163/91 mmHg BP Sitting (Post-Dialysis) 157/75 mmHg Concurrent Access: falseAV Fistula Upper Arm (Left) Arterial Sitting Heart Rate Pre-Dialysis 52 BPM Sitting H eart Rate Post-Dialysis 46 BPM Temperature Pre-Dialysis 97.8 degF Temperature Post -Dialysis 97.6 degF April 14, 2024 In-Center Hemodialysis Treatment 9197-98-21L10:00:00.000Z 5520-76-79N55:29:00.000Z BP Sitting (Pre-Dialysis) 193/94 mmHg BP Sitting (Post-Dialysis) 132/79 mmHg Concurrent Access: falseAV Fistula Upper Arm (Left) Arterial Sitting Heart Rate Pre-Dialysis 55 BPM Sitting H eart Rate Post-Dialysis 72 BPM Temperature Pre-Dialysis 97.7 degF Temperature Post -Dialysis 97.9 degF April 11, 2024 In-Center Hemodialysis Treatment [id number]:06:00.000Z 7462-30-32F57:38:00.000Z BP Sitting (Pre-Dialysis) 185/101 mmHg BP Sitting (Post-Dialysis) 134/75 mmHg Concurrent Access: falseAV Fistula Upper Arm (Left) Arterial Sitting Heart Rate Pre-Dialysis 60 BPM Sitting H eart Rate Post-Dialysis 60 BPM Temperature Pre-Dialysis 97.2 degF Temperature Post -Dialysis 98 degF April 09, 2024 In-Center Hemodialysis Treatment [id number]:28:00.000Z 8167-52-80I61:00:00.000Z BP Sitting (Pre-Dialysis) 181/98 mmHg BP Sitting (Post-Dialysis) 196/88 mmHg Concurrent Access: falseAV Fistula Upper Arm (Left) Arterial Sitting Heart Rate Pre-Dialysis 52 BPM Sitting H eart Rate Post-Dialysis 60 BPM Temperature Pre-Dialysis 97.1 degF Temperature Post -Dialysis 98 degF April 07, 2024 In-Center Hemodialysis Treatment 8487-28-54R29:37:00.000Z [id number]:07:00.000Z BP Sitting (Pre-Dialysis) 167/71 mmHg BP Sitting (Post-Dialysis) 118/90 mmHg Concurrent Access: falseAV Fistula Upper Arm (Left) Arterial Sitting Heart Rate Pre-Dialysis 46 BPM Sitting H eart Rate Post-Dialysis 50 BPM Temperature Pre-Dialysis 97.7 degF Temperature Post -Dialysis 97.8 degF April 04, 2024 In-Center Hemodialysis Treatment 4703-55-51T91:12:00.000Z 2970-03-60Q43:43:15.000Z BP Sitting (Pre-Dialysis) 173/78 mmHg BP Sitting (Post-Dialysis) 177/79 mmHg Concurrent Access: falseAV Fistula Upper Arm (Left) Arterial Sitting Heart Rate Pre-Dialysis 49 BPM Sitting H eart Rate Post-Dialysis 51 BPM Temperature Pre-Dialysis 97.3 degF Temperature Post -Dialysis 97.6 degF April 02, 2024 In-Center Hemodialysis Treatment 5600-21-41T65:20:00.000Z 9132-30-76W39:52:00.000Z BP Sitting (Pre-Dialysis) 119/94 mmHg BP Sitting (Post-Dialysis) 194/99 mmHg Concurrent Access: falseAV Fistula Upper Arm (Left) Arterial Sitting Heart Rate Pre-Dialysis 105 BPM Sitting H eart Rate Post-Dialysis 50 BPM Temperature Pre-Dialysis 97.7 degF Temperature Post -Dialysis 97.4 degF March 31, 2024 In-Center Hemodialysis Treatment [id number]:08:00.000Z 6631-34-67W05:41:13.000Z BP Sitting (Pre-Dialysis) 169/97 mmHg BP Sitting (Post-Dialysis) 157/87 mmHg Concurrent Access: falseAV Fistula Upper Arm (Left) Arterial Sitting Heart Rate Pre-Dialysis 54 BPM Sitting H eart Rate Post-Dialysis 60 BPM Temperature Pre-Dialysis 97 degF Temperature Post -Dialysis 98 degF March 28, 2024 In-Center Hemodialysis Treatment [id number]:14:00.000Z 9087-29-60B51:45:00.000Z BP Sitting (Pre-Dialysis) 171/96 mmHg BP Sitting (Post-Dialysis) 190/91 mmHg Concurrent Access: falseAV Fistula Upper Arm (Left) Arterial Sitting Heart Rate Pre-Dialysis 55 BPM Sitting H eart Rate Post-Dialysis 60 BPM Temperature Pre-Dialysis 98.1 degF Temperature Post -Dialysis 97.6 degF March 26, 2024 In-Center Hemodialysis Treatment 8002-04-36N92:24:00.000Z 4013-29-97I62:10:04.000Z BP Sitting (Pre-Dialysis) 159/75 mmHg BP Sitting (Post-Dialysis) 184/71 mmHg Concurrent Access: falseAV Fistula Upper Arm (Left) Arterial Sitting Heart Rate Pre-Dialysis 60 BPM Sitting H eart Rate Post-Dialysis 67 BPM Temperature Pre-Dialysis 97.3 degF Temperature Post -Dialysis 97.2 degF March 24, 2024 In-Center Hemodialysis Treatment 9036-52-57J02:58:00.000Z 5394-85-51U91:29:00.000Z BP Sitting (Pre-Dialysis) 120/82 mmHg BP Sitting (Post-Dialysis) 135/88 mmHg Concurrent Access: falseAV Fistula Upper Arm (Left) Arterial Sitting Heart Rate Pre-Dialysis 54 BPM Sitting H eart Rate Post-Dialysis 49 BPM Temperature Pre-Dialysis 98.9 degF Temperature Post -Dialysis 97.3 degF March 21, 2024 In-Center Hemodialysis Treatment [id number]:39:00.000Z 7853-89-36Y83:18:00.000Z BP Sitting (Pre-Dialysis) 158/81 mmHg BP Sitting (Post-Dialysis) 150/98 mmHg Concurrent Access: falseAV Fistula Upper Arm (Left) Arterial Sitting Heart Rate Pre-Dialysis 53 BPM Sitting H eart Rate Post-Dialysis 55 BPM Temperature Pre-Dialysis 97.7 degF Temperature Post -Dialysis 98 degF March 19, 2024 In-Center Hemodialysis Treatment 1040-52-92I09:42:00.000Z 5023-44-29J99:13:07.000Z BP Sitting (Pre-Dialysis) 169/86 mmHg BP Sitting (Post-Dialysis) 160/51 mmHg Concurrent Access: falseAV Fistula Upper Arm (Left) Arterial Sitting Heart Rate Pre-Dialysis 60 BPM Sitting H eart Rate Post-Dialysis 54 BPM Temperature Pre-Dialysis 97.6 degF Temperature Post -Dialysis 97.6 degF March 17, 2024 In-Center Hemodialysis Treatment 6515-22-46I20:57:00.000Z 7361-92-86N30:45:56.000Z BP Sitting (Pre-Dialysis) 168/61 mmHg BP Sitting (Post-Dialysis) 160/97 mmHg Concurrent Access: falseAV Fistula Upper Arm (Left) Arterial Sitting Heart Rate Pre-Dialysis 60 BPM Sitting H eart Rate Post-Dialysis 71 BPM Temperature Pre-Dialysis 97.3 degF Temperature Post -Dialysis 97.4 degF March 14, 2024 In-Center Hemodialysis Treatment 5961-05-68N60:03:00.000Z 9872-07-83Q76:39:10.000Z BP Sitting (Pre-Dialysis) 165/91 mmHg BP Sitting (Post-Dialysis) 152/96 mmHg Concurrent Access: falseAV Fistula Upper Arm (Left) Arterial Sitting Heart Rate Pre-Dialysis 60 BPM Sitting H eart Rate Post-Dialysis 62 BPM Temperature Pre-Dialysis 97 degF Temperature Post -Dialysis 97.6 degF March 12, 2024 In-Center Hemodialysis Treatment 6550-35-42Q95:43:00.000Z 4338-43-84F72:15:00.000Z BP Sitting (Pre-Dialysis) 171/90 mmHg BP Sitting (Post-Dialysis) 182/84 mmHg Concurrent Access: falseAV Fistula Upper Arm (Left) Arterial Sitting Heart Rate Pre-Dialysis 60 BPM Sitting H eart Rate Post-Dialysis 62 BPM Temperature Pre-Dialysis 97.7 degF Temperature Post -Dialysis 98 degF March 10, 2024 In-Center Hemodialysis Treatment 3131-43-39K51:13:00.000Z 1372-16-80M95:44:00.000Z BP Sitting (Pre-Dialysis) 172/93 mmHg BP Sitting (Post-Dialysis) 160/82 mmHg Concurrent Access: falseAV Fistula Upper Arm (Left) Arterial Sitting Heart Rate Pre-Dialysis 60 BPM Sitting H eart Rate Post-Dialysis 60 BPM Temperature Pre-Dialysis 97.5 degF Temperature Post -Dialysis 97.6 degF March 07, 2024 In-Center Hemodialysis Treatment 9946-99-72A87:40:00.000Z 1161-41-23F14:12:19.000Z BP Sitting (Pre-Dialysis) 117/79 mmHg BP Sitting (Post-Dialysis) 141/76 mmHg Concurrent Access: falseAV Fistula Upper Arm (Left) Arterial Sitting Heart Rate Pre-Dialysis 60 BPM Sitting H eart Rate Post-Dialysis 54 BPM Temperature Pre-Dialysis 96.8 degF Temperature Post -Dialysis 97.3 degF March 05, 2024 In-Center Hemodialysis Treatment 8035-21-10L48:25:00.000Z 2670-65-31Q00:55:45.000Z BP Sitting (Pre-Dialysis) 146/83 mmHg BP Sitting (Post-Dialysis) 149/96 mmHg Concurrent Access: falseAV Fistula Upper Arm (Left) Arterial Sitting Heart Rate Pre-Dialysis 50 BPM Sitting H eart Rate Post-Dialysis 51 BPM Temperature Pre-Dialysis 97.1 degF Temperature Post -Dialysis 97.8 degF February 23, 2024 In-Center Hemodialysis Treatment [id number]:55:00.000Z 0576-43-10G70:31:00.000Z BP Sitting (Pre-Dialysis) 150/71 mmHg BP Sitting (Post-Dialysis) 100/64 mmHg Concurrent Access: falseAV Fistula Upper Arm (Left) Arterial Sitting Heart Rate Pre-Dialysis 65 BPM Sitting H eart Rate Post-Dialysis 60 BPM Temperature Pre-Dialysis 97.3 degF February 20, 2024 In-Center Hemodialysis Treatment 9806-50-48V73:53:00.000Z 9375-68-80G58:30:00.000Z BP Sitting (Pre-Dialysis) 116/80 mmHg BP Sitting (Post-Dialysis) 113/99 mmHg Concurrent Access: falseAV Fistula Upper Arm (Left) Arterial Sitting Heart Rate Pre-Dialysis 60 BPM Sitting H eart Rate Post-Dialysis 74 BPM Temperature Pre-Dialysis 97 degF Temperature Post -Dialysis 97.2 degF February 18, 2024 In-Center Hemodialysis Treatment 3452-07-80E02:31:00.000Z 9279-28-43L30:03:00.000Z BP Sitting (Pre-Dialysis) 107/65 mmHg BP Sitting (Post-Dialysis) 170/89 mmHg Concurrent Access: falseAV Fistula Upper Arm (Left) Arterial Sitting Heart Rate Pre-Dialysis 88 BPM Sitting H eart Rate Post-Dialysis 60 BPM Temperature Pre-Dialysis 97.1 degF Temperature Post -Dialysis 97.2 degF February 15, 2024 In-Center Hemodialysis Treatment 3733-18-51U20:10:00.000Z 6780-06-91G12:41:00.000Z BP Sitting (Pre-Dialysis) 158/99 mmHg BP Sitting (Post-Dialysis) 127/63 mmHg Concurrent Access: falseAV Fistula Upper Arm (Left) Arterial Sitting Heart Rate Pre-Dialysis 60 BPM Sitting H eart Rate Post-Dialysis 60 BPM Temperature Pre-Dialysis 97.6 degF Temperature Post -Dialysis 97.1 degF February 13, 2024 In-Center Hemodialysis Treatment 2078-74-10C81:00:00.000Z 0519-65-16W46:29:00.000Z BP Sitting (Pre-Dialysis) 149/96 mmHg BP Sitting (Post-Dialysis) 174/98 mmHg Concurrent Access: falseAV Fistula Upper Arm (Left) Arterial Sitting Heart Rate Pre-Dialysis 62 BPM Sitting H eart Rate Post-Dialysis 60 BPM Temperature Pre-Dialysis 97.6 degF Temperature Post -Dialysis 97.2 degF February 11, 2024 In-Center Hemodialysis Treatment 6682-49-41W78:39:00.000Z 7158-24-71K05:08:06.000Z BP Sitting (Pre-Dialysis) 163/90 mmHg BP Sitting (Post-Dialysis) 124/96 mmHg Concurrent Access: falseAV Fistula Upper Arm (Left) Arterial Sitting Heart Rate Pre-Dialysis 54 BPM Sitting H eart Rate Post-Dialysis 71 BPM Temperature Pre-Dialysis 97.6 degF Temperature Post -Dialysis 97.6 degF February 08, 2024 In-Center Hemodialysis Treatment BP Sitting (Pre-Dialysis) 144/85 mmHg Concurrent Access: false Sitting Heart Rate Pre-Dialysis 80 BPM Temperature Pre-Dialysis 97.5 degF February 06, 2024 In-Center Hemodialysis Treatment 8992-81-82F10:50:00.000Z 6230-59-64D29:00:00.000Z BP Sitting (Pre-Dialysis) 145/69 mmHg BP Sitting (Post-Dialysis) 135/59 mmHg Concurrent Access: falseAV Fistula Upper Arm (Left) Arterial Sitting Heart Rate Pre-Dialysis 69 BPM Sitting H eart Rate Post-Dialysis 60 BPM Temperature Pre-Dialysis 96.3 degF Temperature Post -Dialysis 97.8 degF February 04, 2024 In-Center Hemodialysis Treatment 4664-49-16O83:07:00.000Z 6418-73-71F17:37:00.000Z BP Sitting (Pre-Dialysis) 112/56 mmHg BP Sitting (Post-Dialysis) 120/94 mmHg Concurrent Access: falseAV Fistula Upper Arm (Left) Arterial Sitting Heart Rate Pre-Dialysis 60 BPM Sitting H eart Rate Post-Dialysis 71 BPM Temperature Pre-Dialysis 97.6 degF Temperature Post -Dialysis 97.6 degF February 01, 2024 In-Center Hemodialysis Treatment 3153-90-22M52:34:00.000Z 7219-45-21V15:00:00.000Z BP Sitting (Pre-Dialysis) 156/71 mmHg BP Sitting (Post-Dialysis) 139/95 mmHg Concurrent Access: falseAV Fistula Upper Arm (Left) Arterial Sitting Heart Rate Pre-Dialysis 67 BPM Sitting H eart Rate Post-Dialysis 62 BPM Temperature Pre-Dialysis 97.2 degF Temperature Post -Dialysis 97 degF January 30, 2024 In-Center Hemodialysis Treatment 5230-92-23O47:12:00.000Z 0656-06-83Y22:41:00.000Z BP Sitting (Pre-Dialysis) 123/104 mmHg BP Sitting (Post-Dialysis) 112/50 mmHg Concurrent Access: falseAV Fistula Upper Arm (Left) Arterial Sitting Heart Rate Pre-Dialysis 65 BPM Sitting H eart Rate Post-Dialysis 55 BPM Temperature Pre-Dialysis 98.1 degF Temperature Post -Dialysis 97.1 degF January 29, 2024 In-Center Hemodialysis Treatment 7305-68-99S50:33:57.000Z 3942-68-23Q13:23:07.000Z BP Sitting (Pre-Dialysis) 156/50 mmHg BP Sitting (Post-Dialysis) 140/61 mmHg Concurrent Access: falseAV Fistula Upper Arm (Left) Arterial Sitting Heart Rate Pre-Dialysis 64 BPM Sitting H eart Rate Post-Dialysis 65 BPM Temperature Pre-Dialysis 97.6 degF Temperature Post -Dialysis 97.6 degF January 25, 2024 In-Center Hemodialysis Treatment 8682-79-08E80:46:00.000Z 9640-69-31U61:10:01.000Z BP Sitting (Pre-Dialysis) 134/91 mmHg BP Sitting (Post-Dialysis) 104/91 mmHg Concurrent Access: falseAV Fistula Upper Arm (Left) Arterial Sitting Heart Rate Pre-Dialysis 60 BPM Sitting H eart Rate Post-Dialysis 55 BPM Temperature Pre-Dialysis 97.9 degF Temperature Post -Dialysis 97.7 degF January 23, 2024 In-Center Hemodialysis Treatment 1010-75-13Q28:10:00.000Z 5175-71-66S45:00:00.000Z BP Sitting (Pre-Dialysis) 134/101 mmHg BP Sitting (Post-Dialysis) 111/47 mmHg Concurrent Access: falseAV Fistula Upper Arm (Left) Arterial Sitting Heart Rate Pre-Dialysis 60 BPM Sitting H eart Rate Post-Dialysis 60 BPM Temperature Pre-Dialysis 98.2 degF Temperature Post -Dialysis 97.8 degF January 21, 2024 In-Center Hemodialysis Treatment 1881-19-03E68:14:00.000Z 7555-10-01Q82:44:21.000Z BP Sitting (Pre-Dialysis) 150/96 mmHg BP Sitting (Post-Dialysis) 107/70 mmHg Concurrent Access: falseAV Fistula Upper Arm (Left) Arterial Sitting Heart Rate Pre-Dialysis 60 BPM Sitting H eart Rate Post-Dialysis 66 BPM Temperature Pre-Dialysis 97.8 degF Temperature Post -Dialysis 97.2 degF January 18, 2024 In-Center Hemodialysis Treatment 1131-68-62R55:55:00.000Z 9299-16-00X29:30:00.000Z BP Sitting (Pre-Dialysis) 147/79 mmHg BP Sitting (Post-Dialysis) 130/62 mmHg Concurrent Access: falseAV Fistula Upper Arm (Left) Arterial Sitting Heart Rate Pre-Dialysis 53 BPM Sitting H eart Rate Post-Dialysis 73 BPM Temperature Pre-Dialysis 97.4 degF Temperature Post -Dialysis 97.7 degF January 16, 2024 In-Center Hemodialysis Treatment 6333-32-93Q28:59:00.000Z 9476-32-59E13:30:00.000Z BP Sitting (Pre-Dialysis) 146/77 mmHg BP Sitting (Post-Dialysis) 128/75 mmHg Concurrent Access: falseAV Fistula Upper Arm (Left) Arterial Sitting Heart Rate Pre-Dialysis 71 BPM Sitting H eart Rate Post-Dialysis 60 BPM Temperature Pre-Dialysis 97.8 degF Temperature Post -Dialysis 97.2 degF January 14, 2024 In-Center Hemodialysis Treatment 5636-47-92R80:08:00.000Z 2077-80-88X73:26:58.000Z BP Sitting (Pre-Dialysis) 128/72 mmHg BP Sitting (Post-Dialysis) 140/110 mmHg Concurrent Access: falseAV Fistula Upper Arm (Left) Arterial Sitting Heart Rate Pre-Dialysis 69 BPM Sitting H eart Rate Post-Dialysis 65 BPM Temperature Pre-Dialysis 97.2 degF Temperature Post -Dialysis 97.6 degF January 11, 2024 In-Center Hemodialysis Treatment 9071-24-61H76:52:00.000Z 6198-76-91B50:27:00.000Z BP Sitting (Pre-Dialysis) 117/78 mmHg BP Sitting (Post-Dialysis) 116/66 mmHg Concurrent Access: falseAV Fistula Upper Arm (Left) Arterial Sitting Heart Rate Pre-Dialysis 69 BPM Sitting H eart Rate Post-Dialysis 73 BPM Temperature Pre-Dialysis 97.8 degF Temperature Post -Dialysis 97.7 degF December 20, 2023 In-Center Hemodialysis Treatment 9948-61-07Y45:40:58.000Z 8483-59-54K86:15:58.000Z BP Sitting (Pre-Dialysis) 156/65 mmHg BP Sitting (Post-Dialysis) 131/56 mmHg Concurrent Access: falseAV Fistula Upper Arm (Left) Arterial BP Standing (Pre-Dialysis) 149/64 mmHg BP Standing (P ost-Dialysis) 118/52 mmHg Sitting Heart Rate Pre-Dialysis 69 BPM Sitting Heart Rate Post-Dialysis 65 BPM Standing Heart Rate Pre-Dialysis 67 BPM Standing Heart Rate Post-Dialysis 57 BPM Temperature Pre-Dialysis 97.8 degF Temperature Post -Dialysis 97.8 degF December 18, 2023 In-Center Hemodialysis Treatment 7480-91-27H91:44:58.000Z 7784-39-74A93:15:58.000Z BP Sitting (Pre-Dialysis) 126/81 mmHg BP Sitting (Post-Dialysis) 121/53 mmHg Concurrent Access: falseAV Fistula Upper Arm (Left) Arterial Sitting Heart Rate Pre-Dialysis 56 BPM Sitting H eart Rate Post-Dialysis 59 BPM Temperature Pre-Dialysis 97.6 degF Temperature Post -Dialysis 97.8 degF December 15, 2023 In-Center Hemodialysis Treatment 6053-46-10H30:35:29.000Z 9179-69-07K66:09:30.000Z BP Sitting (Pre-Dialysis) 140/95 mmHg BP Sitting (Post-Dialysis) 120/64 mmHg Concurrent Access: falseAV Fistula Upper Arm (Left) Arterial BP Standing (Pre-Dialysis) 156/64 mmHg BP Standing (P ost-Dialysis) 139/82 mmHg Sitting Heart Rate Pre-Dialysis 67 BPM Sitting Heart Rate Post-Dialysis 84 BPM Standing Heart Rate Pre-Dialysis 64 BPM Standing Heart Rate Post-Dialysis 70 BPM Temperature Pre-Dialysis 97.9 degF Temperature Post -Dialysis 97 degF December 13, 2023 In-Center Hemodialysis Treatment 0347-88-00H95:33:00.000Z 3824-59-67D60:02:30.000Z BP Sitting (Pre-Dialysis) 169/61 mmHg BP Sitting (Post-Dialysis) 113/60 mmHg Concurrent Access: falseAV Fistula Upper Arm (Left) Arterial Sitting Heart Rate Pre-Dialysis 68 BPM BP Standing (Post-Dialysis) 108/60 mmHg Temperature Pre-Dialysis 97.9 degF Sitting Heart Ra te Post-Dialysis 66 BPM Standing Heart Rate Post-Ruba lysis 66 BPM Temperature Post-Dialysis 97 .9 degF December 11, 2023 In-Center Hemodialysis Treatment 7549-39-70W31:41:29.000Z 1690-61-56Z47:14:30.000Z BP Sitting (Pre-Dialysis) 144/64 mmHg BP Sitting (Post-Dialysis) 156/64 mmHg Concurrent Access: falseAV Fistula Upper Arm (Left) Arterial BP Standing (Pre-Dialysis) 129/54 mmHg BP Standing (P ost-Dialysis) 130/115 mmHg Sitting Heart Rate Pre-Dialysis 61 BPM Sitting Heart Rate Post-Dialysis 61 BPM Standing Heart Rate Pre-Dialysis 63 BPM Standing Heart Rate Post-Dialysis 84 BPM Temperature Pre-Dialysis 97.6 degF Temperature Post -Dialysis 97.8 degF December 08, 2023 In-Center Hemodialysis Treatment 0109-32-22Q69:28:00.000Z 9767-75-91G23:40:11.000Z BP Sitting (Pre-Dialysis) 152/64 mmHg BP Sitting (Post-Dialysis) 128/79 mmHg Concurrent Access: falseAV Fistula Upper Arm (Left) Arterial BP Standing (Pre-Dialysis) 152/59 mmHg Sitti ng Heart Rate Post-Dialysis 71 BPM Sitting Heart Rate Pre-Dialysis 63 BPM Temperatu re Post-Dialysis 98.1 degF Standing Heart Rate Pre-Dialysis 63 BPM Temperature Pre-Dialysis 97.4 degF December 06, 2023 In-Center Hemodialysis Treatment 2010-36-41M06:28:10.000Z 9685-04-67H78:56:11.000Z BP Sitting (Pre-Dialysis) 191/60 mmHg BP Sitting (Post-Dialysis) 121/67 mmHg Concurrent Access: falseAV Fistula Upper Arm (Left) Arterial BP Standing (Pre-Dialysis) 189/62 mmHg Sitti ng Heart Rate Post-Dialysis 61 BPM Sitting Heart Rate Pre-Dialysis 64 BPM Temperatu re Post-Dialysis 97.2 degF Standing Heart Rate Pre-Dialysis 66 BPM Temperature Pre-Dialysis 97.2 degF December 04, 2023 In-Center Hemodialysis Treatment 5814-67-69I11:33:00.000Z 6935-64-30W54:11:20.000Z BP Sitting (Pre-Dialysis) 175/67 mmHg BP Sitting (Post-Dialysis) 119/70 mmHg Concurrent Access: falseAV Fistula Upper Arm (Left) Arterial BP Standing (Pre-Dialysis) 165/72 mmHg BP Standing (P ost-Dialysis) 121/48 mmHg Sitting Heart Rate Pre-Dialysis 57 BPM Sitting Heart Rate Post-Dialysis 58 BPM Standing Heart Rate Pre-Dialysis 57 BPM Standing Heart Rate Post-Dialysis 58 BPM Temperature Pre-Dialysis 97.9 degF Temperature Post -Dialysis 97.8 degF December 01, 2023 In-Center Hemodialysis Treatment 8185-18-15U15:33:00.000Z 8536-38-91T81:08:38.000Z BP Sitting (Pre-Dialysis) 136/54 mmHg BP Sitting (Post-Dialysis) 140/55 mmHg Concurrent Access: falseAV Fistula Upper Arm (Left) Arterial BP Standing (Pre-Dialysis) 139/55 mmHg BP Standing (P ost-Dialysis) 124/54 mmHg Sitting Heart Rate Pre-Dialysis 56 BPM Sitting Heart Rate Post-Dialysis 57 BPM Standing Heart Rate Pre-Dialysis 56 BPM Standing Heart Rate Post-Dialysis 61 BPM Temperature Pre-Dialysis 97.8 degF Temperature Post -Dialysis 97.6 degF November 29, 2023 In-Center Hemodialysis Treatment [id number]:37:38.000Z 5444-93-97Q40:46:38.000Z BP Sitting (Pre-Dialysis) 174/66 mmHg BP Sitting (Post-Dialysis) 111/64 mmHg Concurrent Access: falseAV Fistula Upper Arm (Left) Arterial BP Standing (Pre-Dialysis) 157/70 mmHg BP Standing (P ost-Dialysis) 150/64 mmHg Sitting Heart Rate Pre-Dialysis 55 BPM Sitting Heart Rate Post-Dialysis 62 BPM Standing Heart Rate Pre-Dialysis 57 BPM Standing Heart Rate Post-Dialysis 62 BPM Temperature Pre-Dialysis 97.9 degF Temperature Post -Dialysis 97.3 degF November 27, 2023 In-Center Hemodialysis Treatment [id number]:39:00.000Z 8077-88-03K74:09:38.000Z BP Sitting (Pre-Dialysis) 165/60 mmHg BP Sitting (Post-Dialysis) 117/48 mmHg Concurrent Access: falseAV Fistula Upper Arm (Left) Arterial Sitting Heart Rate Pre-Dialysis 59 BPM Sitting H eart Rate Post-Dialysis 85 BPM Temperature Pre-Dialysis 97.6 degF Temperature Post -Dialysis 97.6 degF November 24, 2023 In-Center Hemodialysis Treatment 1888-78-63F50:43:23.000Z 7067-82-06H64:16:24.000Z BP Sitting (Pre-Dialysis) 164/71 mmHg BP Sitting (Post-Dialysis) 131/58 mmHg Concurrent Access: falseAV Fistula Upper Arm (Left) Arterial BP Standing (Pre-Dialysis) 164/118 mmHg BP Standing (P ost-Dialysis) 121/54 mmHg Sitting Heart Rate Pre-Dialysis 57 BPM Sitting Heart Rate Post-Dialysis 54 BPM Standing Heart Rate Pre-Dialysis 57 BPM Standing Heart Rate Post-Dialysis 57 BPM Temperature Pre-Dialysis 97.8 degF Temperature Post -Dialysis 97.8 degF November 22, 2023 In-Center Hemodialysis Treatment [id number]:32:00.000Z 9248-93-50S28:02:24.000Z BP Sitting (Pre-Dialysis) 170/68 mmHg BP Sitting (Post-Dialysis) 135/43 mmHg Concurrent Access: falseAV Fistula Upper Arm (Left) Arterial BP Standing (Pre-Dialysis) 160/61 mmHg BP Standing (P ost-Dialysis) 115/56 mmHg Sitting Heart Rate Pre-Dialysis 56 BPM Sitting Heart Rate Post-Dialysis 52 BPM Standing Heart Rate Pre-Dialysis 57 BPM Standing Heart Rate Post-Dialysis 52 BPM Temperature Pre-Dialysis 97.6 degF Temperature Post -Dialysis 97.8 degF November 20, 2023 In-Center Hemodialysis Treatment [id number]:42:23.000Z 5669-77-89K18:55:24.000Z BP Sitting (Pre-Dialysis) 157/81 mmHg BP Sitting (Post-Dialysis) 121/51 mmHg Concurrent Access: falseAV Fistula Upper Arm (Left) Arterial Sitting Heart Rate Pre-Dialysis 62 BPM BP Standing (Post-Dialysis) 121/48 mmHg Temperature Pre-Dialysis 97.6 degF Sitting Heart Ra te Post-Dialysis 57 BPM Standing Heart Rate Post-Ruba lysis 56 BPM Temperature Post-Dialysis 97 .9 degF November 17, 2023 In-Center Hemodialysis Treatment [id number]:32:00.000Z 0609-61-02K44:05:32.000Z BP Sitting (Pre-Dialysis) 144/59 mmHg BP Sitting (Post-Dialysis) 137/58 mmHg Concurrent Access: falseAV Fistula Upper Arm (Left) Arterial BP Standing (Pre-Dialysis) 153/52 mmHg BP Standing (P ost-Dialysis) 138/52 mmHg Sitting Heart Rate Pre-Dialysis 55 BPM Sitting Heart Rate Post-Dialysis 52 BPM Standing Heart Rate Pre-Dialysis 52 BPM Temperature Post-Dialysis 97.9 degF Temperature Pre-Dialysis 97.9 degF November 15, 2023 In-Center Hemodialysis Treatment 0720-05-24T85:42:32.000Z 4497-12-65Z87:16:32.000Z BP Sitting (Pre-Dialysis) 188/54 mmHg BP Sitting (Post-Dialysis) 133/86 mmHg Concurrent Access: falseAV Fistula Upper Arm (Left) Arterial BP Standing (Pre-Dialysis) 143/121 mmHg Sitti ng Heart Rate Post-Dialysis 70 BPM Sitting Heart Rate Pre-Dialysis 50 BPM Temperatu re Post-Dialysis 97.5 degF Standing Heart Rate Pre-Dialysis 51 BPM Temperature Pre-Dialysis 97.5 degF November 13, 2023 In-Center Hemodialysis Treatment 4954-33-58T11:46:32.000Z 4183-27-31J51:17:32.000Z BP Sitting (Pre-Dialysis) 182/63 mmHg BP Sitting (Post-Dialysis) 117/54 mmHg Concurrent Access: falseAV Fistula Upper Arm (Left) Arterial BP Standing (Pre-Dialysis) 184/75 mmHg Sitting Heart Rate Post-Dialysis 60 BPM Sitting Heart Rate Pre-Dialysis 64 BPM Standing Heart Rate Pre-Dialysis 65 BPM Temperature Pre-Dialysis 97.1 degF November 10, 2023 In-Center Hemodialysis Treatment 5555-68-60L86:34:00.000Z 3753-66-68S20:09:10.000Z BP Sitting (Pre-Dialysis) 170/64 mmHg BP Sitting (Post-Dialysis) 144/45 mmHg Concurrent Access: falseAV Fistula Upper Arm (Left) Arterial BP Standing (Pre-Dialysis) 192/66 mmHg Sitting Heart Rate Post-Dialysis 64 BPM Sitting Heart Rate Pre-Dialysis 62 BPM Standing Heart Rate Pre-Dialysis 64 BPM Temperature Pre-Dialysis 97.6 degF November 06, 2023 In-Center Hemodialysis Treatment 0989-08-95B25:43:23.000Z 2600-36-06F65:05:23.000Z BP Sitting (Pre-Dialysis) 149/58 mmHg BP Sitting (Post-Dialysis) 109/41 mmHg Concurrent Access: falseAV Fistula Upper Arm (Left) Arterial BP Standing (Pre-Dialysis) 163/55 mmHg BP Standing (P ost-Dialysis) 116/48 mmHg Sitting Heart Rate Pre-Dialysis 57 BPM Sitting Heart Rate Post-Dialysis 52 BPM Standing Heart Rate Pre-Dialysis 59 BPM Standing Heart Rate Post-Dialysis 52 BPM Temperature Pre-Dialysis 97.8 degF Temperature Post -Dialysis 97.6 degF November 03, 2023 In-Center Hemodialysis Treatment 8848-70-55U86:33:00.000Z 7750-22-50N05:06:06.000Z BP Sitting (Pre-Dialysis) 139/55 mmHg BP Sitting (Post-Dialysis) 144/67 mmHg Concurrent Access: falseAV Fistula Upper Arm (Left) Arterial Sitting Heart Rate Pre-Dialysis 57 BPM BP Standing (Post-Dialysis) 137/68 mmHg Temperature Pre-Dialysis 97.8 degF Sitting Heart Ra te Post-Dialysis 58 BPM Standing Heart Rate Post-Ruba lysis 62 BPM Temperature Post-Dialysis 97 .6 degF November 01, 2023 In-Center Hemodialysis Treatment 7774-49-26Z02:43:44.000Z 1000-77-85J50:17:44.000Z BP Sitting (Pre-Dialysis) 165/70 mmHg BP Sitting (Post-Dialysis) 147/56 mmHg Concurrent Access: falseAV Fistula Upper Arm (Left) Arterial BP Standing (Pre-Dialysis) 160/50 mmHg BP Standing (P ost-Dialysis) 148/55 mmHg Sitting Heart Rate Pre-Dialysis 58 BPM Sitting Heart Rate Post-Dialysis 54 BPM Standing Heart Rate Pre-Dialysis 58 BPM Standing Heart Rate Post-Dialysis 55 BPM Temperature Pre-Dialysis 97.9 degF Temperature Post -Dialysis 97.9 degF October 30, 2023 In-Center Hemodialysis Treatment [id number]:32:06.000Z [id number]:05:06.000Z BP Sitting (Pre-Dialysis) 169/55 mmHg BP Sitting (Post-Dialysis) 161/51 mmHg Concurrent Access: falseAV Fistula Upper Arm (Left) Arterial Sitting Heart Rate Pre-Dialysis 66 BPM Sitting H eart Rate Post-Dialysis 62 BPM Temperature Pre-Dialysis 97.8 degF Temperature Post -Dialysis 98.1 degF October 27, 2023 In-Center Hemodialysis Treatment [id number]:29:00.000Z [id number]:03:27.000Z BP Sitting (Pre-Dialysis) 144/53 mmHg BP Sitting (Post-Dialysis) 106/70 mmHg Concurrent Access: falseAV Fistula Upper Arm (Left) Arterial Sitting Heart Rate Pre-Dialysis 59 BPM Sitting H eart Rate Post-Dialysis 55 BPM Temperature Pre-Dialysis 98.1 degF Temperature Post -Dialysis 97.6 degF October 25, 2023 In-Center Hemodialysis Treatment [id number]:36:27.000Z 8848-42-86F04:02:27.000Z BP Sitting (Pre-Dialysis) 149/60 mmHg BP Sitting (Post-Dialysis) 135/50 mmHg Concurrent Access: falseAV Fistula Upper Arm (Left) Arterial BP Standing (Pre-Dialysis) 148/66 mmHg Sitti ng Heart Rate Post-Dialysis 63 BPM Sitting Heart Rate Pre-Dialysis 57 BPM Temperatu re Post-Dialysis 97.9 degF Standing Heart Rate Pre-Dialysis 57 BPM Temperature Pre-Dialysis 97.9 degF October 20, 2023 In-Center Hemodialysis Treatment [id number]:46:33.000Z 3247-52-92P75:19:33.000Z BP Sitting (Pre-Dialysis) 167/64 mmHg BP Sitting (Post-Dialysis) 110/51 mmHg Concurrent Access: falseAV Fistula Upper Arm (Left) Arterial BP Standing (Pre-Dialysis) 161/79 mmHg Sitti ng Heart Rate Post-Dialysis 54 BPM Sitting Heart Rate Pre-Dialysis 61 BPM Temperatu re Post-Dialysis 97.6 degF Standing Heart Rate Pre-Dialysis 58 BPM Temperature Pre-Dialysis 97.9 degF October 18, 2023 In-Center Hemodialysis Treatment 6030-76-37F07:40:00.000Z 2956-78-60U24:52:33.000Z BP Sitting (Pre-Dialysis) 161/61 mmHg BP Sitting (Post-Dialysis) 138/64 mmHg Concurrent Access: falseAV Fistula Upper Arm (Left) Arterial BP Standing (Pre-Dialysis) 134/58 mmHg BP Standing (P ost-Dialysis) 165/83 mmHg Sitting Heart Rate Pre-Dialysis 65 BPM Sitting Heart Rate Post-Dialysis 74 BPM Standing Heart Rate Pre-Dialysis 68 BPM Standing Heart Rate Post-Dialysis 74 BPM Temperature Pre-Dialysis 97.7 degF Temperature Post -Dialysis 97.2 degF October 16, 2023 In-Center Hemodialysis Treatment 1948W79:25:33.000Z 3437-27-06Q33:55:33.000Z BP Sitting (Pre-Dialysis) 160/53 mmHg BP Sitting (Post-Dialysis) 125/45 mmHg Concurrent Access: falseAV Fistula Upper Arm (Left) Arterial Sitting Heart Rate Pre-Dialysis 67 BPM Sitting H eart Rate Post-Dialysis 60 BPM Temperature Pre-Dialysis 97.6 degF Temperature Post -Dialysis 97.6 degF October 13, 2023 In-Center Hemodialysis Treatment [id number]:27:32.000Z 2783-17-26H99:57:32.000Z BP Sitting (Pre-Dialysis) 182/69 mmHg BP Sitting (Post-Dialysis) 151/41 mmHg Concurrent Access: falseAV Fistula Upper Arm (Left) Arterial BP Standing (Pre-Dialysis) 191/71 mmHg BP Standing (P ost-Dialysis) 167/60 mmHg Sitting Heart Rate Pre-Dialysis 64 BPM Sitting Heart Rate Post-Dialysis 61 BPM Standing Heart Rate Pre-Dialysis 65 BPM Standing Heart Rate Post-Dialysis 62 BPM Temperature Pre-Dialysis 97.8 degF Temperature Post -Dialysis 97.5 degF October 11, 2023 In-Center Hemodialysis Treatment [id number]:40:00.000Z 9004-74-64E98:00:00.000Z BP Sitting (Pre-Dialysis) 163/61 mmHg BP Sitting (Post-Dialysis) 127/52 mmHg Concurrent Access: falseAV Fistula Upper Arm (Left) Arterial Sitting Heart Rate Pre-Dialysis 62 BPM Sitting H eart Rate Post-Dialysis 56 BPM Temperature Pre-Dialysis 97.5 degF Temperature Post -Dialysis 97.5 degF October 09, 2023 In-Center Hemodialysis Treatment [id number]:45:01.000Z 8747-86-24F69:04:01.000Z BP Sitting (Pre-Dialysis) 159/55 mmHg BP Sitting (Post-Dialysis) 126/74 mmHg Concurrent Access: falseAV Fistula Upper Arm (Left) Arterial Sitting Heart Rate Pre-Dialysis 64 BPM Sitting H eart Rate Post-Dialysis 82 BPM Temperature Pre-Dialysis 97.6 degF Temperature Post -Dialysis 97.4 degF October 06, 2023 In-Center Hemodialysis Treatment [id number]:37:40.000Z 8020-90-91Y38:06:24.000Z BP Sitting (Pre-Dialysis) 172/56 mmHg BP Sitting (Post-Dialysis) 158/60 mmHg Concurrent Access: falseAV Fistula Upper Arm (Left) Arterial Sitting Heart Rate Pre-Dialysis 64 BPM BP Standing (Post-Dialysis) 140/69 mmHg Temperature Pre-Dialysis 97.8 degF Sitting Heart Ra te Post-Dialysis 61 BPM Standing Heart Rate Post-Ruba lysis 62 BPM Temperature Post-Dialysis 97 .7 degF October 04, 2023 In-Center Hemodialysis Treatment [id number]:33:39.000Z 1361-19-13V33:58:40.000Z BP Sitting (Pre-Dialysis) 158/60 mmHg BP Sitting (Post-Dialysis) 109/41 mmHg Concurrent Access: falseAV Fistula Upper Arm (Left) Arterial BP Standing (Pre-Dialysis) 144/71 mmHg BP Standing (P ost-Dialysis) 109/41 mmHg Sitting Heart Rate Pre-Dialysis 66 BPM Sitting Heart Rate Post-Dialysis 62 BPM Standing Heart Rate Pre-Dialysis 71 BPM Standing Heart Rate Post-Dialysis 61 BPM Temperature Pre-Dialysis 97.8 degF Temperature Post -Dialysis 97.8 degF October 02, 2023 In-Center Hemodialysis Treatment [id number]:43:00.000Z 3241-36-40W45:16:40.000Z BP Sitting (Pre-Dialysis) 157/62 mmHg BP Sitting (Post-Dialysis) 147/59 mmHg Concurrent Access: falseAV Fistula Upper Arm (Left) Arterial Sitting Heart Rate Pre-Dialysis 61 BPM Sitting H eart Rate Post-Dialysis 59 BPM Temperature Pre-Dialysis 97.6 degF Temperature Post -Dialysis 97.6 degF September 29, 2023 In-Center Hemodialysis Treatment 4912-57-95V15:37:00.000Z 4445-17-19H36:02:55.000Z BP Sitting (Pre-Dialysis) 138/78 mmHg BP Sitting (Post-Dialysis) 139/64 mmHg Concurrent Access: falseAV Fistula Upper Arm (Left) Arterial BP Standing (Pre-Dialysis) 158/54 mmHg Sitting Heart Rate Post-Dialysis 54 BPM Sitting Heart Rate Pre-Dialysis 56 BPM Temperatu re Post-Dialysis 98 degF Standing Heart Rate Pre-Dialysis 65 BPM Temperature Pre-Dialysis 97.6 degF September 27, 2023 In-Center Hemodialysis Treatment [id number]:46:00.000Z 5978-18-94V84:16:55.000Z BP Sitting (Pre-Dialysis) 191/77 mmHg BP Sitting (Post-Dialysis) 140/71 mmHg Concurrent Access: falseAV Fistula Upper Arm (Left) Arterial BP Standing (Pre-Dialysis) 183/65 mmHg Sitti ng Heart Rate Post-Dialysis 73 BPM Sitting Heart Rate Pre-Dialysis 59 BPM Temperatu re Post-Dialysis 97.8 degF Standing Heart Rate Pre-Dialysis 61 BPM Temperature Pre-Dialysis 97.8 degF September 25, 2023 In-Center Hemodialysis Treatment 6019-06-91X80:35:00.000Z 6564-22-55X59:12:55.000Z BP Sitting (Pre-Dialysis) 173/63 mmHg BP Sitting (Post-Dialysis) 132/54 mmHg Concurrent Access: falseAV Fistula Upper Arm (Left) Arterial BP Standing (Pre-Dialysis) 130/56 mmHg BP Standing (P ost-Dialysis) 135/47 mmHg Sitting Heart Rate Pre-Dialysis 63 BPM Sitting Heart Rate Post-Dialysis 58 BPM Standing Heart Rate Pre-Dialysis 65 BPM Standing Heart Rate Post-Dialysis 58 BPM Temperature Pre-Dialysis 97.8 degF Temperature Post -Dialysis 97.6 degF September 22, 2023 In-Center Hemodialysis Treatment [id number]:37:31.000Z 0342-26-07G33:06:32.000Z BP Sitting (Pre-Dialysis) 120/52 mmHg BP Sitting (Post-Dialysis) 174/89 mmHg Concurrent Access: falseAV Fistula Upper Arm (Left) Arterial BP Standing (Pre-Dialysis) 163/72 mmHg Sitti ng Heart Rate Post-Dialysis 74 BPM Sitting Heart Rate Pre-Dialysis 74 BPM Temperatu re Post-Dialysis 97.3 degF Standing Heart Rate Pre-Dialysis 86 BPM Temperature Pre-Dialysis 97.8 degF September 20, 2023 In-Center Hemodialysis Treatment [id number]:45:31.000Z 3092-85-22M77:15:32.000Z BP Sitting (Pre-Dialysis) 143/58 mmHg BP Sitting (Post-Dialysis) 114/49 mmHg Concurrent Access: falseAV Fistula Upper Arm (Left) Arterial Sitting Heart Rate Pre-Dialysis 66 BPM BP Standing (Post-Dialysis) 106/43 mmHg Temperature Pre-Dialysis 97.8 degF Sitting Heart Ra te Post-Dialysis 64 BPM Standing Heart Rate Post-Ruba lysis 60 BPM Temperature Post-Dialysis 97 .6 degF September 18, 2023 In-Center Hemodialysis Treatment [id number]:30:00.000Z 6197-13-62O72:05:32.000Z BP Sitting (Pre-Dialysis) 152/94 mmHg BP Sitting (Post-Dialysis) 105/40 mmHg Concurrent Access: falseAV Fistula Upper Arm (Left) Arterial BP Standing (Pre-Dialysis) 118/39 mmHg BP Standing (P ost-Dialysis) 121/49 mmHg Sitting Heart Rate Pre-Dialysis 46 BPM Sitting Heart Rate Post-Dialysis 58 BPM Standing Heart Rate Pre-Dialysis 61 BPM Standing Heart Rate Post-Dialysis 66 BPM Temperature Pre-Dialysis 98 degF September 15, 2023 In-Center Hemodialysis Treatment [id number]:39:00.000Z 5160-29-58F94:10:54.000Z BP Sitting (Pre-Dialysis) 160/62 mmHg BP Sitting (Post-Dialysis) 112/61 mmHg Concurrent Access: falseAV Fistula Upper Arm (Left) Arterial BP Standing (Pre-Dialysis) 151/64 mmHg BP Standing (P ost-Dialysis) 111/50 mmHg Sitting Heart Rate Pre-Dialysis 63 BPM Sitting Heart Rate Post-Dialysis 70 BPM Standing Heart Rate Pre-Dialysis 59 BPM Standing Heart Rate Post-Dialysis 66 BPM Temperature Pre-Dialysis 97.8 degF Temperature Post -Dialysis 97.5 degF September 13, 2023 In-Center Hemodialysis Treatment [id number]:37:54.000Z 8084-12-86E57:11:54.000Z BP Sitting (Pre-Dialysis) 165/64 mmHg BP Sitting (Post-Dialysis) 128/45 mmHg Concurrent Access: falseAV Fistula Upper Arm (Left) Arterial Sitting Heart Rate Pre-Dialysis 55 BPM Sitting H eart Rate Post-Dialysis 58 BPM Temperature Pre-Dialysis 97.8 degF Temperature Post -Dialysis 97.8 degF September 11, 2023 In-Center Hemodialysis Treatment 1873-90-09R03:45:00.000Z 4873-50-59Z97:13:54.000Z BP Sitting (Pre-Dialysis) 163/56 mmHg BP Sitting (Post-Dialysis) 135/59 mmHg Concurrent Access: falseAV Fistula Upper Arm (Left) Arterial BP Standing (Pre-Dialysis) 159/67 mmHg Sitti ng Heart Rate Post-Dialysis 66 BPM Sitting Heart Rate Pre-Dialysis 62 BPM Temperatu re Post-Dialysis 97.6 degF Standing Heart Rate Pre-Dialysis 63 BPM Temperature Pre-Dialysis 97.6 degF September 08, 2023 In-Center Hemodialysis Treatment [id number]:37:00.000Z 8978-11-76J93:13:49.000Z BP Sitting (Pre-Dialysis) 141/75 mmHg BP Sitting (Post-Dialysis) 134/70 mmHg Concurrent Access: falseAV Fistula Upper Arm (Left) Arterial BP Standing (Pre-Dialysis) 101/53 mmHg Sitti ng Heart Rate Post-Dialysis 51 BPM Sitting Heart Rate Pre-Dialysis 57 BPM Temperatu re Post-Dialysis 97.9 degF Standing Heart Rate Pre-Dialysis 58 BPM Temperature Pre-Dialysis 97.9 degF September 06, 2023 In-Center Hemodialysis Treatment 4089-33-90H70:43:00.000Z 1859-58-98G53:15:49.000Z BP Sitting (Pre-Dialysis) 159/60 mmHg BP Sitting (Post-Dialysis) 137/61 mmHg Concurrent Access: falseAV Fistula Upper Arm (Left) Arterial BP Standing (Pre-Dialysis) 121/71 mmHg Sitti ng Heart Rate Post-Dialysis 61 BPM Sitting Heart Rate Pre-Dialysis 63 BPM Temperatu re Post-Dialysis 97.6 degF Standing Heart Rate Pre-Dialysis 57 BPM Temperature Pre-Dialysis 97.8 degF September 04, 2023 In-Center Hemodialysis Treatment 6013-04-40P19:41:00.000Z 5336-16-13U96:37:49.000Z BP Sitting (Pre-Dialysis) 142/57 mmHg BP Sitting (Post-Dialysis) 145/115 mmHg Concurrent Access: falseAV Fistula Upper Arm (Left) Arterial Sitting Heart Rate Pre-Dialysis 60 BPM BP Standing (Post-Dialysis) 141/54 mmHg Temperature Pre-Dialysis 97.5 degF Sitting Heart Ra te Post-Dialysis 67 BPM Standing Heart Rate Post-Ruba lysis 67 BPM Temperature Post-Dialysis 97 .3 degF September 01, 2023 In-Center Hemodialysis Treatment 9168-48-25T29:35:00.000Z 1770-07-07L57:52:47.000Z BP Sitting (Pre-Dialysis) 143/50 mmHg BP Sitting (Post-Dialysis) 125/81 mmHg Concurrent Access: falseAV Fistula Upper Arm (Left) Arterial Sitting Heart Rate Pre-Dialysis 59 BPM BP Standi ng (Post-Dialysis) 91/47 mmHg Temperature Pre-Dialysis 97.8 degF Sitting Heart Ra te Post-Dialysis 50 BPM Standing Heart Rate Post-Ruba lysis 90 BPM Temperature Post-Dialysis 97 .5 degF August 30, 2023 In-Center Hemodialysis Treatment [id number]:34:00.000Z 1259-43-69Q28:07:48.000Z BP Sitting (Pre-Dialysis) 157/100 mmHg BP Sitting (Post-Dialysis) 138/52 mmHg Concurrent Access: falseAV Fistula Upper Arm (Left) Arterial Sitting Heart Rate Pre-Dialysis 75 BPM Sitting H eart Rate Post-Dialysis 57 BPM Temperature Pre-Dialysis 97.9 degF Temperature Post -Dialysis 97.6 degF August 28, 2023 In-Center Hemodialysis Treatment [id number]:42:00.000Z 0607-72-46Z66:15:48.000Z BP Sitting (Pre-Dialysis) 136/51 mmHg BP Sitting (Post-Dialysis) 104/86 mmHg Concurrent Access: falseAV Fistula Upper Arm (Left) Arterial Sitting Heart Rate Pre-Dialysis 73 BPM Sitting H eart Rate Post-Dialysis 63 BPM Temperature Pre-Dialysis 98.1 degF Temperature Post -Dialysis 97.6 degF August 25, 2023 In-Center Hemodialysis Treatment [id number]:42:45.000Z 3388-76-73D77:21:46.000Z BP Sitting (Pre-Dialysis) 146/62 mmHg BP Sitting (Post-Dialysis) 111/42 mmHg Concurrent Access: falseAV Fistula Upper Arm (Left) Arterial Sitting Heart Rate Pre-Dialysis 57 BPM BP Standing (Post-Dialysis) 122/49 mmHg Temperature Pre-Dialysis 97.8 degF Sitting Heart Ra te Post-Dialysis 51 BPM Standing Heart Rate Post-Ruba lysis 52 BPM Temperature Post-Dialysis 97 .8 degF August 23, 2023 In-Center Hemodialysis Treatment [id number]:34:48.000Z 3364-36-58S33:00:49.000Z BP Sitting (Pre-Dialysis) 151/58 mmHg BP Sitting (Post-Dialysis) 142/57 mmHg Concurrent Access: falseAV Fistula Upper Arm (Left) Arterial BP Standing (Pre-Dialysis) 138/57 mmHg BP Standing (P ost-Dialysis) 145/47 mmHg Sitting Heart Rate Pre-Dialysis 53 BPM Sitting Heart Rate Post-Dialysis 52 BPM Standing Heart Rate Pre-Dialysis 52 BPM Standing Heart Rate Post-Dialysis 50 BPM Temperature Pre-Dialysis 97.9 degF Temperature Post -Dialysis 97.3 degF August 21, 2023 In-Center Hemodialysis Treatment 4216-94-74E78:29:26.000Z 3589-37-98I81:00:27.000Z BP Sitting (Pre-Dialysis) 156/53 mmHg BP Sitting (Post-Dialysis) 150/56 mmHg Concurrent Access: falseAV Fistula Upper Arm (Left) Arterial BP Standing (Pre-Dialysis) 136/50 mmHg Sitting Heart Rate Post-Dialysis 68 BPM Sitting Heart Rate Pre-Dialysis 69 BPM Standing Heart Rate Pre-Dialysis 72 BPM Temperature Pre-Dialysis 97.3 degF August 18, 2023 In-Center Hemodialysis Treatment [id number]:37:22.000Z 3831-69-12A42:08:22.000Z BP Sitting (Pre-Dialysis) 130/65 mmHg BP Sitting (Post-Dialysis) 139/51 mmHg Concurrent Access: falseAV Fistula Upper Arm (Left) Arterial BP Standing (Pre-Dialysis) 160/111 mmHg Sitti ng Heart Rate Post-Dialysis 64 BPM Sitting Heart Rate Pre-Dialysis 66 BPM Temperatu re Post-Dialysis 97.9 degF Standing Heart Rate Pre-Dialysis 68 BPM Temperature Pre-Dialysis 97.5 degF August 16, 2023 In-Center Hemodialysis Treatment [id number]:37:00.000Z 7104-73-97E77:08:27.000Z BP Sitting (Pre-Dialysis) 146/57 mmHg BP Sitting (Post-Dialysis) 115/41 mmHg Concurrent Access: falseAV Fistula Upper Arm (Left) Arterial BP Standing (Pre-Dialysis) 149/56 mmHg Sitti ng Heart Rate Post-Dialysis 56 BPM Sitting Heart Rate Pre-Dialysis 63 BPM Temperatu re Post-Dialysis 97.9 degF Standing Heart Rate Pre-Dialysis 63 BPM Temperature Pre-Dialysis 97.5 degF August 14, 2023 In-Center Hemodialysis Treatment [id number]:43:26.000Z 4164-82-71V98:14:27.000Z BP Sitting (Pre-Dialysis) 141/49 mmHg BP Sitting (Post-Dialysis) 124/49 mmHg Concurrent Access: falseAV Fistula Upper Arm (Left) Arterial Sitting Heart Rate Pre-Dialysis 58 BPM Sitting H eart Rate Post-Dialysis 56 BPM Temperature Pre-Dialysis 97.6 degF Temperature Post -Dialysis 97.6 degF August 11, 2023 In-Center Hemodialysis Treatment 3470-14-44L97:33:00.000Z 3708-48-94P04:30:08.000Z BP Sitting (Pre-Dialysis) 155/57 mmHg BP Sitting (Post-Dialysis) 159/44 mmHg Concurrent Access: falseAV Fistula Upper Arm (Left) Arterial BP Standing (Pre-Dialysis) 151/53 mmHg Sitting Heart Rate Post-Dialysis 59 BPM Sitting Heart Rate Pre-Dialysis 62 BPM Temperatu re Post-Dialysis 97 degF Standing Heart Rate Pre-Dialysis 65 BPM Temperature Pre-Dialysis 97.9 degF August 09, 2023 In-Center Hemodialysis Treatment 3496-33-31K80:41:00.000Z 7792-47-21H51:14:08.000Z BP Sitting (Pre-Dialysis) 155/79 mmHg BP Sitting (Post-Dialysis) 113/40 mmHg Concurrent Access: falseAV Fistula Upper Arm (Left) Arterial Sitting Heart Rate Pre-Dialysis 65 BPM BP Standing (Post-Dialysis) 124/49 mmHg Temperature Pre-Dialysis 97.9 degF Sitting Heart Ra te Post-Dialysis 63 BPM Standing Heart Rate Post-Ruba lysis 61 BPM Temperature Post-Dialysis 97 .2 degF August 07, 2023 In-Center Hemodialysis Treatment [id number]:44:07.000Z 2581-11-23G56:14:08.000Z BP Sitting (Pre-Dialysis) 137/70 mmHg BP Sitting (Post-Dialysis) 138/51 mmHg Concurrent Access: falseAV Fistula Upper Arm (Left) Arterial Sitting Heart Rate Pre-Dialysis 63 BPM BP Standi ng (Post-Dialysis) 135/49 mmHg Temperature Pre-Dialysis 98 degF Sitting Heart Ra te Post-Dialysis 60 BPM Standing Heart Rate Post-Ruba lysis 61 BPM Temperature Post-Dialysis 97 .5 degF August 04, 2023 In-Center Hemodialysis Treatment 7310-82-98V54:47:00.000Z 9395-37-71R88:01:07.000Z BP Sitting (Pre-Dialysis) 159/59 mmHg BP Sitting (Post-Dialysis) 124/78 mmHg Concurrent Access: falseAV Fistula Upper Arm (Left) Arterial BP Standing (Pre-Dialysis) 151/53 mmHg Sitting Heart Rate Post-Dialysis 66 BPM Sitting Heart Rate Pre-Dialysis 59 BPM Temperatu re Post-Dialysis 97 degF Standing Heart Rate Pre-Dialysis 67 BPM Temperature Pre-Dialysis 97.6 degF August 02, 2023 In-Center Hemodialysis Treatment 5086-53-19X75:41:07.000Z 2348-24-46P18:18:07.000Z BP Sitting (Pre-Dialysis) 157/70 mmHg BP Sitting (Post-Dialysis) 124/78 mmHg Concurrent Access: falseAV Fistula Upper Arm (Left) Arterial Sitting Heart Rate Pre-Dialysis 60 BPM Sitting H eart Rate Post-Dialysis 56 BPM Temperature Pre-Dialysis 97.9 degF Temperature Post -Dialysis 97.6 degF July 31, 2023 In-Center Hemodialysis Treatment [id number]:44:15.000Z 7639-60-36K82:18:15.000Z BP Sitting (Pre-Dialysis) 174/56 mmHg BP Sitting (Post-Dialysis) 119/51 mmHg Concurrent Access: falseAV Fistula Upper Arm (Left) Arterial Sitting Heart Rate Pre-Dialysis 60 BPM Sitting H eart Rate Post-Dialysis 64 BPM Temperature Pre-Dialysis 97.2 degF Temperature Post -Dialysis 98.1 degF July 28, 2023 In-Center Hemodialysis Treatment 2489-99-61P73:37:39.000Z 6900-81-29J08:10:40.000Z BP Sitting (Pre-Dialysis) 147/60 mmHg BP Sitting (Post-Dialysis) 147/66 mmHg Concurrent Access: falseAV Fistula Upper Arm (Left) Arterial Sitting Heart Rate Pre-Dialysis 77 BPM BP Standing (Post-Dialysis) 136/48 mmHg Temperature Pre-Dialysis 97.8 degF Sitting Heart Ra te Post-Dialysis 59 BPM Standing Heart Rate Post-Ruba lysis 58 BPM Temperature Post-Dialysis 97 .6 degF July 26, 2023 In-Center Hemodialysis Treatment [id number]:40:00.000Z 2216-13-79S89:11:40.000Z BP Sitting (Pre-Dialysis) 162/75 mmHg BP Sitting (Post-Dialysis) 115/88 mmHg Concurrent Access: falseAV Fistula Upper Arm (Left) Arterial BP Standing (Pre-Dialysis) 156/66 mmHg Sitti ng Heart Rate Post-Dialysis 92 BPM Sitting Heart Rate Pre-Dialysis 62 BPM Temperatu re Post-Dialysis 97.4 degF Standing Heart Rate Pre-Dialysis 63 BPM Temperature Pre-Dialysis 97.8 degF July 24, 2023 In-Center Hemodialysis Treatment 0557-22-28L79:47:39.000Z 3083-31-34N82:08:40.000Z BP Sitting (Pre-Dialysis) 157/65 mmHg BP Sitting (Post-Dialysis) 103/54 mmHg Concurrent Access: falseAV Fistula Upper Arm (Left) Arterial BP Standing (Pre-Dialysis) 157/65 mmHg BP Standing (P ost-Dialysis) 116/72 mmHg Sitting Heart Rate Pre-Dialysis 58 BPM Sitting Heart Rate Post-Dialysis 60 BPM Standing Heart Rate Pre-Dialysis 58 BPM Standing Heart Rate Post-Dialysis 57 BPM Temperature Pre-Dialysis 97.7 degF Temperature Post -Dialysis 97.7 degF July 21, 2023 In-Center Hemodialysis Treatment 5742-06-42N72:36:00.000Z 9904-82-38X94:11:07.000Z BP Sitting (Pre-Dialysis) 156/70 mmHg BP Sitting (Post-Dialysis) 100/49 mmHg Concurrent Access: falseAV Fistula Upper Arm (Left) Arterial BP Standing (Pre-Dialysis) 148/73 mmHg Sitti ng Heart Rate Post-Dialysis 57 BPM Sitting Heart Rate Pre-Dialysis 59 BPM Temperatu re Post-Dialysis 97.8 degF Standing Heart Rate Pre-Dialysis 61 BPM Temperature Pre-Dialysis 97.6 degF July 19, 2023 In-Center Hemodialysis Treatment 7476-31-65M30:39:00.000Z 7274-49-18M51:10:31.000Z BP Sitting (Pre-Dialysis) 136/57 mmHg BP Sitting (Post-Dialysis) 128/58 mmHg Concurrent Access: falseAV Fistula Upper Arm (Left) Arterial BP Standing (Pre-Dialysis) 151/65 mmHg BP Standing (P ost-Dialysis) 133/60 mmHg Sitting Heart Rate Pre-Dialysis 60 BPM Sitting Heart Rate Post-Dialysis 60 BPM Standing Heart Rate Pre-Dialysis 62 BPM Standing Heart Rate Post-Dialysis 74 BPM Temperature Pre-Dialysis 97 degF Temperature Post -Dialysis 97.2 degF July 17, 2023 In-Center Hemodialysis Treatment [id number]:26:31.000Z 7858-89-97P66:46:32.000Z BP Sitting (Pre-Dialysis) 164/64 mmHg BP Sitting (Post-Dialysis) 142/68 mmHg Concurrent Access: falseAV Fistula Upper Arm (Left) Arterial Sitting Heart Rate Pre-Dialysis 61 BPM BP Standing (Post-Dialysis) 138/61 mmHg Temperature Pre-Dialysis 97.9 degF Sitting Heart Ra te Post-Dialysis 78 BPM Standing Heart Rate Post-Ruba lysis 62 BPM Temperature Post-Dialysis 97 .8 degF July 14, 2023 In-Center Hemodialysis Treatment 8930-33-74Y93:31:00.000Z 0372-36-01J53:01:19.000Z BP Sitting (Pre-Dialysis) 141/55 mmHg BP Sitting (Post-Dialysis) 109/63 mmHg Concurrent Access: falseAV Fistula Upper Arm (Left) Arterial Sitting Heart Rate Pre-Dialysis 59 BPM Sitting H eart Rate Post-Dialysis 51 BPM Temperature Pre-Dialysis 98.1 degF Temperature Post -Dialysis 97.9 degF July 12, 2023 In-Center Hemodialysis Treatment 5904-25-69M76:38:00.000Z 4611-05-27S28:10:19.000Z BP Sitting (Pre-Dialysis) 101/73 mmHg BP Sitting (Post-Dialysis) 118/55 mmHg Concurrent Access: falseAV Fistula Upper Arm (Left) Arterial BP Standing (Pre-Dialysis) 116/93 mmHg BP Standing (P ost-Dialysis) 112/47 mmHg Sitting Heart Rate Pre-Dialysis 63 BPM Sitting Heart Rate Post-Dialysis 47 BPM Standing Heart Rate Pre-Dialysis 70 BPM Standing Heart Rate Post-Dialysis 48 BPM Temperature Pre-Dialysis 97.9 degF July 10, 2023 In-Center Hemodialysis Treatment 5628-74-08C30:45:19.000Z 3634-18-64Z48:17:19.000Z BP Sitting (Pre-Dialysis) 176/68 mmHg BP Sitting (Post-Dialysis) 170/58 mmHg Concurrent Access: falseAV Fistula Upper Arm (Left) Arterial Sitting Heart Rate Pre-Dialysis 55 BPM Sitting H eart Rate Post-Dialysis 54 BPM Temperature Pre-Dialysis 97.6 degF Temperature Post -Dialysis 97.6 degF July 07, 2023 In-Center Hemodialysis Treatment 0703-85-70Q64:40:00.000Z 7892-33-61S94:14:09.000Z BP Sitting (Pre-Dialysis) 175/67 mmHg BP Sitting (Post-Dialysis) 160/64 mmHg Concurrent Access: falseAV Fistula Upper Arm (Left) Arterial Sitting Heart Rate Pre-Dialysis 55 BPM BP Standing (Post-Dialysis) 124/58 mmHg Temperature Pre-Dialysis 97.6 degF Sitting Heart Ra te Post-Dialysis 51 BPM Standing Heart Rate Post-Ruba lysis 58 BPM Temperature Post-Dialysis 97 .7 degF July 05, 2023 In-Center Hemodialysis Treatment [id number]:24:00.000Z 0802-90-48B33:57:09.000Z BP Sitting (Pre-Dialysis) 163/69 mmHg BP Sitting (Post-Dialysis) 129/47 mmHg Concurrent Access: falseAV Fistula Upper Arm (Left) Arterial Sitting Heart Rate Pre-Dialysis 56 BPM Sitting H eart Rate Post-Dialysis 49 BPM Temperature Pre-Dialysis 97.3 degF Temperature Post -Dialysis 97.8 degF July 03, 2023 In-Center Hemodialysis Treatment [id number]:46:08.000Z 9498-15-53N16:19:09.000Z BP Sitting (Pre-Dialysis) 184/67 mmHg BP Sitting (Post-Dialysis) 127/43 mmHg Concurrent Access: falseAV Fistula Upper Arm (Left) Arterial Sitting Heart Rate Pre-Dialysis 53 BPM BP Standing (Post-Dialysis) 146/51 mmHg Temperature Pre-Dialysis 97.6 degF Sitting Heart Ra te Post-Dialysis 53 BPM Standing Heart Rate Post-Ruba lysis 52 BPM Temperature Post-Dialysis 97 .6 degF June 30, 2023 In-Center Hemodialysis Treatment [id number]:41:28.000Z 7706-85-63T23:57:28.000Z BP Sitting (Pre-Dialysis) 173/69 mmHg BP Sitting (Post-Dialysis) 115/55 mmHg Concurrent Access: falseAV Fistula Upper Arm (Left) Arterial Sitting Heart Rate Pre-Dialysis 74 BPM Sitting H eart Rate Post-Dialysis 70 BPM Temperature Pre-Dialysis 97.8 degF Temperature Post -Dialysis 97.8 degF June 23, 2023 In-Center Hemodialysis Treatment [id number]:44:00.000Z [id number]:23:28.000Z BP Sitting (Pre-Dialysis) 153/93 mmHg BP Sitting (Post-Dialysis) 115/59 mmHg Concurrent Access: falseAV Fistula Upper Arm (Left) Arterial BP Standing (Pre-Dialysis) 128/89 mmHg BP Standing (P ost-Dialysis) 118/88 mmHg Sitting Heart Rate Pre-Dialysis 53 BPM Sitting Heart Rate Post-Dialysis 57 BPM Standing Heart Rate Pre-Dialysis 60 BPM Standing Heart Rate Post-Dialysis 60 BPM Temperature Pre-Dialysis 97.6 degF Temperature Post -Dialysis 97.4 degF June 21, 2023 In-Center Hemodialysis Treatment [id number]:39:00.000Z [id number]:12:28.000Z BP Sitting (Pre-Dialysis) 183/73 mmHg BP Sitting (Post-Dialysis) 140/57 mmHg Concurrent Access: falseAV Fistula Upper Arm (Left) Arterial Sitting Heart Rate Pre-Dialysis 66 BPM BP Standing (Post-Dialysis) 143/62 mmHg Temperature Pre-Dialysis 97.9 degF Sitting Heart Ra te Post-Dialysis 62 BPM Standing Heart Rate Post-Ruba lysis 60 BPM Temperature Post-Dialysis 97 .4 degF June 19, 2023 In-Center Hemodialysis Treatment [id number]:44:00.000Z [id number]:19:28.000Z BP Sitting (Pre-Dialysis) 169/70 mmHg BP Sitting (Post-Dialysis) 146/61 mmHg Concurrent Access: falseAV Fistula Upper Arm (Left) Arterial BP Standing (Pre-Dialysis) 163/67 mmHg Sitti ng Heart Rate Post-Dialysis 59 BPM Sitting Heart Rate Pre-Dialysis 61 BPM Temperatu re Post-Dialysis 97.6 degF Standing Heart Rate Pre-Dialysis 62 BPM Temperature Pre-Dialysis 97.6 degF June 16, 2023 In-Center Hemodialysis Treatment [id number]:40:39.000Z [id number]:12:39.000Z BP Sitting (Pre-Dialysis) 122/63 mmHg BP Sitting (Post-Dialysis) 131/58 mmHg Concurrent Access: falseAV Fistula Upper Arm (Left) Arterial Sitting Heart Rate Pre-Dialysis 68 BPM Sitting H eart Rate Post-Dialysis 59 BPM Temperature Pre-Dialysis 97.8 degF Temperature Post -Dialysis 97.6 degF June 14, 2023 In-Center Hemodialysis Treatment [id number]:33:00.000Z 8477-83-50E84:09:40.000Z BP Sitting (Pre-Dialysis) 177/64 mmHg BP Sitting (Post-Dialysis) 151/61 mmHg Concurrent Access: falseAV Fistula Upper Arm (Left) Arterial Sitting Heart Rate Pre-Dialysis 65 BPM Sitting H eart Rate Post-Dialysis 57 BPM Temperature Pre-Dialysis 97.4 degF Temperature Post -Dialysis 97.1 degF June 12, 2023 In-Center Hemodialysis Treatment [id number]:45:39.000Z 1632-25-67K19:20:39.000Z BP Sitting (Pre-Dialysis) 149/71 mmHg BP Sitting (Post-Dialysis) 154/72 mmHg Concurrent Access: falseAV Fistula Upper Arm (Left) Arterial Sitting Heart Rate Pre-Dialysis 75 BPM Sitting H eart Rate Post-Dialysis 65 BPM Temperature Pre-Dialysis 97.6 degF Temperature Post -Dialysis 97.6 degF June 09, 2023 In-Center Hemodialysis Treatment [id number]:41:00.000Z 8942-04-37M53:49:21.000Z BP Sitting (Pre-Dialysis) 157/59 mmHg BP Sitting (Post-Dialysis) 134/63 mmHg Concurrent Access: falseAV Fistula Upper Arm (Left) Arterial BP Standing (Pre-Dialysis) 202/59 mmHg BP Standing (P ost-Dialysis) 142/53 mmHg Sitting Heart Rate Pre-Dialysis 56 BPM Sitting Heart Rate Post-Dialysis 59 BPM Standing Heart Rate Pre-Dialysis 59 BPM Standing Heart Rate Post-Dialysis 57 BPM Temperature Pre-Dialysis 97.6 degF Temperature Post -Dialysis 97.6 degF June 07, 2023 In-Center Hemodialysis Treatment [id number]:44:00.000Z [id number]:16:10.000Z BP Sitting (Pre-Dialysis) 158/61 mmHg BP Sitting (Post-Dialysis) 155/95 mmHg Concurrent Access: falseAV Fistula Upper Arm (Left) Arterial BP Standing (Pre-Dialysis) 159/62 mmHg BP Standing (P ost-Dialysis) 137/79 mmHg Sitting Heart Rate Pre-Dialysis 57 BPM Sitting Heart Rate Post-Dialysis 65 BPM Standing Heart Rate Pre-Dialysis 56 BPM Standing Heart Rate Post-Dialysis 66 BPM Temperature Pre-Dialysis 97.6 degF Temperature Post -Dialysis 97.8 degF June 05, 2023 In-Center Hemodialysis Treatment [id number]:43:09.000Z [id number]:16:10.000Z BP Sitting (Pre-Dialysis) 155/50 mmHg BP Sitting (Post-Dialysis) 140/63 mmHg Concurrent Access: falseAV Fistula Upper Arm (Left) Arterial BP Standing (Pre-Dialysis) 181/65 mmHg Sitti ng Heart Rate Post-Dialysis 52 BPM Sitting Heart Rate Pre-Dialysis 56 BPM Temperatu re Post-Dialysis 97.6 degF Standing Heart Rate Pre-Dialysis 58 BPM Temperature Pre-Dialysis 97.6 degF June 02, 2023 In-Center Hemodialysis Treatment [id number]:32:21.000Z 9196-27-91F24:02:22.000Z BP Sitting (Pre-Dialysis) 158/58 mmHg BP Sitting (Post-Dialysis) 141/67 mmHg Concurrent Access: falseAV Fistula Upper Arm (Left) Arterial Sitting Heart Rate Pre-Dialysis 56 BPM Sitting H eart Rate Post-Dialysis 52 BPM Temperature Pre-Dialysis 97.1 degF Temperature Post -Dialysis 97.2 degF May 31, 2023 In-Center Hemodialysis Treatment [id number]:37:00.000Z 3991-29-75Z19:09:22.000Z BP Sitting (Pre-Dialysis) 155/122 mmHg BP Sitting (Post-Dialysis) 142/63 mmHg Concurrent Access: falseAV Fistula Upper Arm (Left) Arterial BP Standing (Pre-Dialysis) 176/102 mmHg Sitti ng Heart Rate Post-Dialysis 60 BPM Sitting Heart Rate Pre-Dialysis 61 BPM Temperatu re Post-Dialysis 97.6 degF Standing Heart Rate Pre-Dialysis 56 BPM Temperature Pre-Dialysis 97.9 degF May 29, 2023 In-Center Hemodialysis Treatment [id number]:45:21.000Z 5359-18-48J55:14:22.000Z BP Sitting (Pre-Dialysis) 181/67 mmHg BP Sitting (Post-Dialysis) 183/76 mmHg Concurrent Access: falseAV Fistula Upper Arm (Left) Arterial BP Standing (Pre-Dialysis) 193/77 mmHg BP Standing (P ost-Dialysis) 172/68 mmHg Sitting Heart Rate Pre-Dialysis 55 BPM Sitting Heart Rate Post-Dialysis 53 BPM Standing Heart Rate Pre-Dialysis 59 BPM Standing Heart Rate Post-Dialysis 61 BPM Temperature Pre-Dialysis 97.6 degF Temperature Post -Dialysis 97.7 degF May 26, 2023 In-Center Hemodialysis Treatment [id number]:41:00.000Z 6540-40-78V47:13:52.000Z BP Sitting (Pre-Dialysis) 191/71 mmHg BP Sitting (Post-Dialysis) 174/81 mmHg Concurrent Access: falseAV Fistula Upper Arm (Left) Arterial BP Standing (Pre-Dialysis) 175/119 mmHg Sitti ng Heart Rate Post-Dialysis 55 BPM Sitting Heart Rate Pre-Dialysis 58 BPM Temperatu re Post-Dialysis 97.6 degF Standing Heart Rate Pre-Dialysis 59 BPM Temperature Pre-Dialysis 97.3 degF May 24, 2023 In-Center Hemodialysis Treatment [id number]:39:00.000Z 0623-10-71T56:17:52.000Z BP Sitting (Pre-Dialysis) 167/55 mmHg BP Sitting (Post-Dialysis) 206/184 mmHg Concurrent Access: falseAV Fistula Upper Arm (Left) Arterial BP Standing (Pre-Dialysis) 154/61 mmHg Sitti ng Heart Rate Post-Dialysis 75 BPM Sitting Heart Rate Pre-Dialysis 69 BPM Temperatu re Post-Dialysis 97.9 degF Standing Heart Rate Pre-Dialysis 67 BPM Temperature Pre-Dialysis 97.8 degF May 22, 2023 In-Center Hemodialysis Treatment [id number]:37:00.000Z 0404-90-00C91:10:51.000Z BP Sitting (Pre-Dialysis) 129/94 mmHg BP Sitting (Post-Dialysis) 161/68 mmHg Concurrent Access: falseAV Fistula Upper Arm (Left) Arterial BP Standing (Pre-Dialysis) 187/66 mmHg BP Standing (P ost-Dialysis) 155/86 mmHg Sitting Heart Rate Pre-Dialysis 73 BPM Sitting Heart Rate Post-Dialysis 70 BPM Standing Heart Rate Pre-Dialysis 72 BPM Standing Heart Rate Post-Dialysis 68 BPM Temperature Pre-Dialysis 97.3 degF Temperature Post -Dialysis 97.6 degF May 19, 2023 In-Center Hemodialysis Treatment [id number]:41:41.000Z 6837-23-50L42:00:41.000Z BP Sitting (Pre-Dialysis) 173/63 mmHg BP Sitting (Post-Dialysis) 159/69 mmHg Concurrent Access: falseAV Fistula Upper Arm (Left) Arterial Sitting Heart Rate Pre-Dialysis 73 BPM Sitting H eart Rate Post-Dialysis 71 BPM Temperature Pre-Dialysis 97.8 degF Temperature Post -Dialysis 97.8 degF May 17, 2023 In-Center Hemodialysis Treatment [id number]:41:00.000Z 9879-00-49C59:42:28.000Z BP Sitting (Pre-Dialysis) 175/59 mmHg BP Sitting (Post-Dialysis) 141/46 mmHg Concurrent Access: falseAV Fistula Upper Arm (Left) Arterial Sitting Heart Rate Pre-Dialysis 64 BPM Sitting H eart Rate Post-Dialysis 60 BPM Temperature Pre-Dialysis 97.9 degF Temperature Post -Dialysis 97.7 degF May 12, 2023 In-Center Hemodialysis Treatment 7538-58-41M24:43:00.000Z 2249-54-48U55:18:01.000Z BP Sitting (Pre-Dialysis) 149/72 mmHg BP Sitting (Post-Dialysis) 150/68 mmHg Concurrent Access: falseAV Fistula Upper Arm (Left) Arterial BP Standing (Pre-Dialysis) 157/83 mmHg Sitti ng Heart Rate Post-Dialysis 54 BPM Sitting Heart Rate Pre-Dialysis 51 BPM Temperatu re Post-Dialysis 98.2 degF Standing Heart Rate Pre-Dialysis 53 BPM Temperature Pre-Dialysis 97.8 degF May 10, 2023 In-Center Hemodialysis Treatment [id number]:45:00.000Z 1945-91-37C00:11:00.000Z BP Sitting (Pre-Dialysis) 181/87 mmHg BP Sitting (Post-Dialysis) 120/90 mmHg Concurrent Access: falseAV Fistula Upper Arm (Left) Arterial Sitting Heart Rate Pre-Dialysis 58 BPM Sitting H eart Rate Post-Dialysis 63 BPM Temperature Pre-Dialysis 97.9 degF Temperature Post -Dialysis 97.9 degF May 08, 2023 In-Center Hemodialysis Treatment 2892-57-15G73:38:00.000Z 9166-18-40U96:13:01.000Z BP Sitting (Pre-Dialysis) 182/64 mmHg BP Sitting (Post-Dialysis) 110/73 mmHg Concurrent Access: falseAV Fistula Upper Arm (Left) Arterial Sitting Heart Rate Pre-Dialysis 63 BPM Sitting H eart Rate Post-Dialysis 67 BPM Temperature Pre-Dialysis 97.6 degF Temperature Post -Dialysis 98.2 degF May 05, 2023 In-Center Hemodialysis Treatment 3821-47-72K45:35:00.000Z 8332-89-11K61:14:08.000Z BP Sitting (Pre-Dialysis) 204/81 mmHg BP Sitting (Post-Dialysis) 182/67 mmHg Concurrent Access: falseAV Fistula Upper Arm (Left) Arterial BP Standing (Pre-Dialysis) 171/82 mmHg Sitti ng Heart Rate Post-Dialysis 57 BPM Sitting Heart Rate Pre-Dialysis 64 BPM Temperatu re Post-Dialysis 97.5 degF Standing Heart Rate Pre-Dialysis 68 BPM Temperature Pre-Dialysis 97.9 degF May 03, 2023 In-Center Hemodialysis Treatment 2841-27-84K82:49:08.000Z 3810-18-26O87:22:08.000Z BP Sitting (Pre-Dialysis) 204/76 mmHg BP Sitting (Post-Dialysis) 176/82 mmHg Concurrent Access: falseAV Fistula Upper Arm (Left) Arterial BP Standing (Pre-Dialysis) 205/72 mmHg BP Standing (P ost-Dialysis) 155/65 mmHg Sitting Heart Rate Pre-Dialysis 63 BPM Sitting Heart Rate Post-Dialysis 53 BPM Standing Heart Rate Pre-Dialysis 65 BPM Standing Heart Rate Post-Dialysis 80 BPM Temperature Pre-Dialysis 97.8 degF Temperature Post -Dialysis 97.8 degF May 01, 2023 In-Center Hemodialysis Treatment 4640-06-85F32:39:00.000Z 9511-45-68B61:13:08.000Z BP Sitting (Pre-Dialysis) 136/79 mmHg BP Sitting (Post-Dialysis) 160/75 mmHg Concurrent Access: falseAV Fistula Upper Arm (Left) Arterial Sitting Heart Rate Pre-Dialysis 59 BPM BP Standing (Post-Dialysis) 149/64 mmHg Temperature Pre-Dialysis 97.6 degF Sitting Heart Ra te Post-Dialysis 69 BPM Standing Heart Rate Post-Ruba lysis 57 BPM Temperature Post-Dialysis 97 .6 degF April 28, 2023 In-Center Hemodialysis Treatment [id number]:49:21.000Z 5271-86-95A56:15:21.000Z BP Sitting (Pre-Dialysis) 121/58 mmHg BP Sitting (Post-Dialysis) 180/51 mmHg Concurrent Access: falseAV Fistula Upper Arm (Left) Arterial Sitting Heart Rate Pre-Dialysis 67 BPM Sitting H eart Rate Post-Dialysis 66 BPM Temperature Pre-Dialysis 97.8 degF Temperature Post -Dialysis 97.8 degF April 26, 2023 In-Center Hemodialysis Treatment 5816-19-31P17:11:00.000Z 1133-57-30O39:54:00.000Z BP Sitting (Pre-Dialysis) 201/79 mmHg BP Sitting (Post-Dialysis) 121/62 mmHg Concurrent Access: falseAV Fistula Upper Arm (Left) Arterial Sitting Heart Rate Pre-Dialysis 64 BPM BP Standing (Post-Dialysis) 124/62 mmHg Temperature Pre-Dialysis 97.9 degF Sitting Heart Ra te Post-Dialysis 60 BPM Standing Heart Rate Post-Ruba lysis 59 BPM Temperature Post-Dialysis 97 .5 degF April 24, 2023 In-Center Hemodialysis Treatment [id number]:42:21.000Z 4005-17-79W73:11:22.000Z BP Sitting (Pre-Dialysis) 175/75 mmHg BP Sitting (Post-Dialysis) 135/69 mmHg Concurrent Access: falseAV Fistula Upper Arm (Left) Arterial Sitting Heart Rate Pre-Dialysis 52 BPM Sitting H eart Rate Post-Dialysis 55 BPM Temperature Pre-Dialysis 97.6 degF Temperature Post -Dialysis 97.9 degF April 21, 2023 In-Center Hemodialysis Treatment 0569-98-71P12:44:14.000Z 5579-84-13D22:13:15.000Z BP Sitting (Pre-Dialysis) 179/75 mmHg BP Sitting (Post-Dialysis) 121/53 mmHg Concurrent Access: falseAV Fistula Upper Arm (Left) Arterial Sitting Heart Rate Pre-Dialysis 74 BPM BP Standing (Post-Dialysis) 110/49 mmHg Temperature Pre-Dialysis 97.8 degF Sitting Heart Ra te Post-Dialysis 65 BPM Standing Heart Rate Post-Ruba lysis 67 BPM Temperature Post-Dialysis 97 .6 degF April 19, 2023 In-Center Hemodialysis Treatment [id number]:45:14.000Z 7296-05-15N01:21:15.000Z BP Sitting (Pre-Dialysis) 197/65 mmHg BP Sitting (Post-Dialysis) 128/73 mmHg Concurrent Access: falseAV Fistula Upper Arm (Left) Arterial BP Standing (Pre-Dialysis) 127/64 mmHg Sitti ng Heart Rate Post-Dialysis 64 BPM Sitting Heart Rate Pre-Dialysis 69 BPM Temperatu re Post-Dialysis 97.9 degF Standing Heart Rate Pre-Dialysis 66 BPM Temperature Pre-Dialysis 97.9 degF April 17, 2023 In-Center Hemodialysis Treatment [id number]:43:00.000Z 9894-11-96Y96:14:15.000Z BP Sitting (Pre-Dialysis) 150/67 mmHg BP Sitting (Post-Dialysis) 149/59 mmHg Concurrent Access: falseAV Fistula Upper Arm (Left) Arterial BP Standing (Pre-Dialysis) 168/69 mmHg Sitti ng Heart Rate Post-Dialysis 60 BPM Sitting Heart Rate Pre-Dialysis 58 BPM Temperatu re Post-Dialysis 97.9 degF Standing Heart Rate Pre-Dialysis 64 BPM Temperature Pre-Dialysis 97.6 degF April 14, 2023 In-Center Hemodialysis Treatment 5021-75-10A33:41:40.000Z 8349-45-25C28:14:40.000Z BP Sitting (Pre-Dialysis) 138/75 mmHg BP Sitting (Post-Dialysis) 157/53 mmHg Concurrent Access: falseAV Fistula Upper Arm (Left) Arterial Sitting Heart Rate Pre-Dialysis 60 BPM BP Standing (Post-Dialysis) 126/55 mmHg Temperature Pre-Dialysis 97.8 degF Sitting Heart Ra te Post-Dialysis 51 BPM Standing Heart Rate Post-Ruba lysis 55 BPM Temperature Post-Dialysis 97 .6 degF April 12, 2023 In-Center Hemodialysis Treatment [id number]:43:46.000Z 6556-37-14I74:17:46.000Z BP Sitting (Pre-Dialysis) 113/83 mmHg BP Sitting (Post-Dialysis) 130/92 mmHg Concurrent Access: falseAV Fistula Upper Arm (Left) Arterial Sitting Heart Rate Pre-Dialysis 54 BPM BP Standi ng (Post-Dialysis) 132/63 mmHg Temperature Pre-Dialysis 97 degF Sitting Heart Ra te Post-Dialysis 64 BPM Standing Heart Rate Post-Ruba lysis 65 BPM Temperature Post-Dialysis 97 .8 degF April 10, 2023 In-Center Hemodialysis Treatment [id number]:40:40.000Z 7016-70-26M36:11:40.000Z BP Sitting (Pre-Dialysis) 56/58 mmHg BP Sitting (Post-Dialysis) 128/57 mmHg Concurrent Access: falseAV Fistula Upper Arm (Left) Arterial Sitting Heart Rate Pre-Dialysis 60 BPM Sitting H eart Rate Post-Dialysis 56 BPM Temperature Pre-Dialysis 97 degF Temperature Post -Dialysis 97.6 degF April 07, 2023 In-Center Hemodialysis Treatment 5915-19-11G77:34:00.000Z 8136-71-87A03:06:18.000Z BP Sitting (Pre-Dialysis) 182/67 mmHg BP Sitting (Post-Dialysis) 108/63 mmHg Concurrent Access: falseAV Fistula Upper Arm (Left) Arterial Sitting Heart Rate Pre-Dialysis 59 BPM Sitting H eart Rate Post-Dialysis 57 BPM Temperature Pre-Dialysis 97.1 degF Temperature Post -Dialysis 97 degF April 05, 2023 In-Center Hemodialysis Treatment 8344-88-22S61:59:17.000Z 6401-97-12V15:15:17.000Z BP Sitting (Pre-Dialysis) 178/82 mmHg BP Sitting (Post-Dialysis) 149/66 mmHg Concurrent Access: falseAV Fistula Upper Arm (Left) Arterial BP Standing (Pre-Dialysis) 190/79 mmHg Sitting Heart Rate Post-Dialysis 62 BPM Sitting Heart Rate Pre-Dialysis 52 BPM Temperatu re Post-Dialysis 97 degF Standing Heart Rate Pre-Dialysis 68 BPM Temperature Pre-Dialysis 97 degF April 03, 2023 In-Center Hemodialysis Treatment [id number]:48:00.000Z 0241-85-20F32:22:17.000Z BP Sitting (Pre-Dialysis) 166/62 mmHg BP Sitting (Post-Dialysis) 140/71 mmHg Concurrent Access: falseAV Fistula Upper Arm (Left) Arterial Sitting Heart Rate Pre-Dialysis 57 BPM Sitting H eart Rate Post-Dialysis 59 BPM Temperature Pre-Dialysis 97.6 degF Temperature Post -Dialysis 97.4 degF March 31, 2023 In-Center Hemodialysis Treatment [id number]:41:07.000Z 8317-40-30M39:16:07.000Z BP Sitting (Pre-Dialysis) 162/65 mmHg BP Sitting (Post-Dialysis) 102/66 mmHg Concurrent Access: falseAV Fistula Upper Arm (Left) Arterial Sitting Heart Rate Pre-Dialysis 60 BPM BP Standi ng (Post-Dialysis) 131/59 mmHg Temperature Pre-Dialysis 97 degF Sitting Heart Ra te Post-Dialysis 62 BPM Standing Heart Rate Post-Ruba lysis 66 BPM Temperature Post-Dialysis 97 .4 degF March 28, 2023 In-Center Hemodialysis Treatment 2103-04-84J76:37:00.000Z 2298-58-65Y03:01:57.000Z BP Sitting (Pre-Dialysis) 156/66 mmHg BP Sitting (Post-Dialysis) 124/64 mmHg Concurrent Access: falseAV Fistula Upper Arm (Left) Arterial Sitting Heart Rate Pre-Dialysis 62 BPM Sitting H eart Rate Post-Dialysis 58 BPM Temperature Pre-Dialysis 97 degF Temperature Post -Dialysis 97.6 degF March 26, 2023 In-Center Hemodialysis Treatment [id number]:40:58.000Z 1784-84-33F37:14:57.000Z BP Sitting (Pre-Dialysis) 159/61 mmHg BP Sitting (Post-Dialysis) 123/51 mmHg Concurrent Access: falseAV Fistula Upper Arm (Left) Arterial Sitting Heart Rate Pre-Dialysis 61 BPM Sitting H eart Rate Post-Dialysis 58 BPM Temperature Pre-Dialysis 97.9 degF Temperature Post -Dialysis 97.4 degF March 24, 2023 In-Center Hemodialysis Treatment 5915-53-54W35:38:00.000Z 8068-88-62E75:16:30.000Z BP Sitting (Pre-Dialysis) 153/59 mmHg BP Sitting (Post-Dialysis) 124/48 mmHg Concurrent Access: falseAV Fistula Upper Arm (Left) Arterial Sitting Heart Rate Pre-Dialysis 62 BPM Sitting H eart Rate Post-Dialysis 52 BPM Temperature Pre-Dialysis 97 degF Temperature Post -Dialysis 97.9 degF March 22, 2023 In-Center Hemodialysis Treatment [id number]:50:00.000Z 5053-42-10B19:23:51.000Z BP Sitting (Pre-Dialysis) 175/60 mmHg BP Sitting (Post-Dialysis) 111/83 mmHg Concurrent Access: falseAV Fistula Upper Arm (Left) Arterial Sitting Heart Rate Pre-Dialysis 60 BPM BP Standing (Post-Dialysis) 116/52 mmHg Temperature Pre-Dialysis 97.6 degF Sitting Heart Ra te Post-Dialysis 65 BPM Standing Heart Rate Post-Ruba lysis 61 BPM Temperature Post-Dialysis 98 .2 degF March 20, 2023 In-Center Hemodialysis Treatment 9568-49-92O04:06:00.000Z 6539-30-32W96:43:39.000Z BP Sitting (Pre-Dialysis) 102/63 mmHg BP Sitting (Post-Dialysis) 146/52 mmHg Concurrent Access: falseAV Fistula Upper Arm (Left) Arterial BP Standing (Pre-Dialysis) 174/64 mmHg Sitti ng Heart Rate Post-Dialysis 63 BPM Sitting Heart Rate Pre-Dialysis 55 BPM Temperatu re Post-Dialysis 97.3 degF Standing Heart Rate Pre-Dialysis 61 BPM Temperature Pre-Dialysis 97.6 degF March 17, 2023 In-Center Hemodialysis Treatment 6970-17-72S79:38:24.000Z 8563-61-26F69:09:24.000Z BP Sitting (Pre-Dialysis) 144/56 mmHg BP Sitting (Post-Dialysis) 138/53 mmHg Concurrent Access: falseAV Fistula Upper Arm (Left) Arterial BP Standing (Pre-Dialysis) 130/46 mmHg BP Standing (P ost-Dialysis) 124/55 mmHg Sitting Heart Rate Pre-Dialysis 67 BPM Sitting Heart Rate Post-Dialysis 70 BPM Standing Heart Rate Pre-Dialysis 74 BPM Standing Heart Rate Post-Dialysis 69 BPM Temperature Pre-Dialysis 97.4 degF Temperature Post -Dialysis 97.5 degF March 15, 2023 In-Center Hemodialysis Treatment [id number]:42:24.000Z 9141-60-76N96:11:24.000Z BP Sitting (Pre-Dialysis) 153/59 mmHg BP Sitting (Post-Dialysis) 123/53 mmHg Concurrent Access: falseAV Fistula Upper Arm (Left) Arterial Sitting Heart Rate Pre-Dialysis 65 BPM BP Standi ng (Post-Dialysis) 117/48 mmHg Temperature Pre-Dialysis 97 degF Sitting Heart Ra te Post-Dialysis 58 BPM Standing Heart Rate Post-Ruba lysis 59 BPM Temperature Post-Dialysis 97 .4 degF March 13, 2023 In-Center Hemodialysis Treatment 3828-21-83F21:43:00.000Z 7353-73-37H31:15:24.000Z BP Sitting (Pre-Dialysis) 169/69 mmHg BP Sitting (Post-Dialysis) 144/61 mmHg Concurrent Access: falseAV Fistula Upper Arm (Left) Arterial Sitting Heart Rate Pre-Dialysis 65 BPM Sitting H eart Rate Post-Dialysis 60 BPM Temperature Pre-Dialysis 97.8 degF Temperature Post -Dialysis 97.8 degF March 10, 2023 In-Center Hemodialysis Treatment 5311-86-65T84:42:00.000Z 2198-22-05W07:17:24.000Z BP Sitting (Pre-Dialysis) 153/62 mmHg BP Sitting (Post-Dialysis) 105/48 mmHg Concurrent Access: falseAV Fistula Upper Arm (Left) Arterial Sitting Heart Rate Pre-Dialysis 61 BPM Sitting H eart Rate Post-Dialysis 58 BPM Temperature Pre-Dialysis 97.9 degF Temperature Post -Dialysis 97.5 degF March 08, 2023 In-Center Hemodialysis Treatment 2483-11-91T99:47:23.000Z 4391-54-61U13:17:24.000Z BP Sitting (Pre-Dialysis) 153/55 mmHg BP Sitting (Post-Dialysis) 138/56 mmHg Concurrent Access: falseAV Fistula Upper Arm (Left) Arterial BP Standing (Pre-Dialysis) 141/54 mmHg Sitti ng Heart Rate Post-Dialysis 56 BPM Sitting Heart Rate Pre-Dialysis 56 BPM Temperatu re Post-Dialysis 97.8 degF Standing Heart Rate Pre-Dialysis 58 BPM Temperature Pre-Dialysis 97.8 degF March 06, 2023 In-Center Hemodialysis Treatment 5262-86-09I35:44:00.000Z 4642-16-86H08:18:24.000Z BP Sitting (Pre-Dialysis) 171/68 mmHg BP Sitting (Post-Dialysis) 141/58 mmHg Concurrent Access: falseAV Fistula Upper Arm (Left) Arterial Sitting Heart Rate Pre-Dialysis 70 BPM BP Standi ng (Post-Dialysis) 124/58 mmHg Temperature Pre-Dialysis 97 degF Sitting Heart Ra te Post-Dialysis 66 BPM Standing Heart Rate Post-Ruba lysis 70 BPM Temperature Post-Dialysis 97 .3 degF March 03, 2023 In-Center Hemodialysis Treatment 6808-54-94A34:27:00.000Z 3500-51-01S83:21:39.000Z BP Sitting (Pre-Dialysis) 161/62 mmHg BP Sitting (Post-Dialysis) 98/53 mmHg Concurrent Access: falseAV Fistula Upper Arm (Left) Arterial BP Standing (Pre-Dialysis) 107/64 mmHg BP Standing (P ost-Dialysis) 114/64 mmHg Sitting Heart Rate Pre-Dialysis 63 BPM Sitting Heart Rate Post-Dialysis 67 BPM Standing Heart Rate Pre-Dialysis 67 BPM Standing Heart Rate Post-Dialysis 69 BPM Temperature Pre-Dialysis 97.9 degF Temperature Post -Dialysis 97.1 degF February 27, 2023 In-Center Hemodialysis Treatment 7449-73-43Z74:45:00.000Z 7530-80-07N26:01:51.000Z BP Sitting (Pre-Dialysis) 161/67 mmHg BP Sitting (Post-Dialysis) 100/50 mmHg Concurrent Access: falseAV Fistula Upper Arm (Left) Arterial Sitting Heart Rate Pre-Dialysis 76 BPM BP Standi ng (Post-Dialysis) 98/64 mmHg Temperature Pre-Dialysis 97 degF Sitting Heart Ra te Post-Dialysis 77 BPM Standing Heart Rate Post-Ruba lysis 72 BPM Temperature Post-Dialysis 97 .5 degF February 24, 2023 In-Center Hemodialysis Treatment 5574-13-23N29:39:13.000Z 4916-00-75P97:13:13.000Z BP Sitting (Pre-Dialysis) 165/64 mmHg BP Sitting (Post-Dialysis) 107/48 mmHg Concurrent Access: falseAV Fistula Upper Arm (Left) Arterial Sitting Heart Rate Pre-Dialysis 55 BPM BP Standing (Post-Dialysis) 109/50 mmHg Temperature Pre-Dialysis 97.8 degF Sitting Heart Ra te Post-Dialysis 60 BPM Standing Heart Rate Post-Ruba lysis 59 BPM Temperature Post-Dialysis 97 .8 degF February 22, 2023 In-Center Hemodialysis Treatment [id number]:39:00.000Z 3185-27-91Z05:11:13.000Z BP Sitting (Pre-Dialysis) 149/67 mmHg BP Sitting (Post-Dialysis) 127/67 mmHg Concurrent Access: falseAV Fistula Upper Arm (Left) Arterial BP Standing (Pre-Dialysis) 146/65 mmHg Sitti ng Heart Rate Post-Dialysis 59 BPM Sitting Heart Rate Pre-Dialysis 57 BPM Temperatu re Post-Dialysis 97.9 degF Standing Heart Rate Pre-Dialysis 57 BPM Temperature Pre-Dialysis 97.9 degF February 20, 2023 In-Center Hemodialysis Treatment 8437-83-12L10:49:00.000Z 5946-67-99M03:24:13.000Z BP Sitting (Pre-Dialysis) 174/69 mmHg BP Sitting (Post-Dialysis) 114/54 mmHg Concurrent Access: falseAV Fistula Upper Arm (Left) Arterial Sitting Heart Rate Pre-Dialysis 61 BPM BP Standing (Post-Dialysis) 109/55 mmHg Temperature Pre-Dialysis 97.5 degF Sitting Heart Ra te Post-Dialysis 61 BPM Standing Heart Rate Post-Ruba lysis 61 BPM Temperature Post-Dialysis 97 .3 degF February 17, 2023 In-Center Hemodialysis Treatment 6531-43-22C27:43:00.000Z 3681-59-12Y38:13:15.000Z BP Sitting (Pre-Dialysis) 174/96 mmHg BP Sitting (Post-Dialysis) 110/86 mmHg Concurrent Access: falseAV Fistula Upper Arm (Left) Arterial Sitting Heart Rate Pre-Dialysis 67 BPM Sitting H eart Rate Post-Dialysis 85 BPM Temperature Pre-Dialysis 97.7 degF Temperature Post -Dialysis 98 degF February 15, 2023 In-Center Hemodialysis Treatment 6503-14-09V57:42:17.000Z 4943-93-28V40:15:17.000Z BP Sitting (Pre-Dialysis) 173/61 mmHg BP Sitting (Post-Dialysis) 91/57 mmHg Concurrent Access: falseAV Fistula Upper Arm (Left) Arterial BP Standing (Pre-Dialysis) 161/64 mmHg Sitting Heart Rate Post-Dialysis 78 BPM Sitting Heart Rate Pre-Dialysis 62 BPM Temperatu re Post-Dialysis 97 degF Standing Heart Rate Pre-Dialysis 86 BPM Temperature Pre-Dialysis 97 degF February 13, 2023 In-Center Hemodialysis Treatment 4829-12-72S48:24:00.000Z 8984-92-00V41:33:16.000Z BP Sitting (Pre-Dialysis) 169/69 mmHg BP Sitting (Post-Dialysis) 131/51 mmHg Concurrent Access: falseAV Fistula Upper Arm (Left) Arterial Sitting Heart Rate Pre-Dialysis 57 BPM BP Standi ng (Post-Dialysis) 118/59 mmHg Temperature Pre-Dialysis 97 degF Sitting Heart Ra te Post-Dialysis 55 BPM Standing Heart Rate Post-Ruba lysis 57 BPM Temperature Post-Dialysis 97 .6 degF February 10, 2023 In-Center Hemodialysis Treatment [id number]:51:00.000Z [id number]:16:44.000Z BP Sitting (Pre-Dialysis) 109/62 mmHg BP Sitting (Post-Dialysis) 92/47 mmHg Concurrent Access: falseAV Fistula Upper Arm (Left) Arterial BP Standing (Pre-Dialysis) 126/59 mmHg BP Standing (P ost-Dialysis) 90/44 mmHg Sitting Heart Rate Pre-Dialysis 57 BPM Sitting Heart Rate Post-Dialysis 63 BPM Standing Heart Rate Pre-Dialysis 58 BPM Standing Heart Rate Post-Dialysis 61 BPM Temperature Pre-Dialysis 97.4 degF Temperature Post -Dialysis 97.3 degF February 08, 2023 In-Center Hemodialysis Treatment 4919-52-50Q75:38:39.000Z 6327-69-60T92:12:40.000Z BP Sitting (Pre-Dialysis) 146/66 mmHg BP Sitting (Post-Dialysis) 22/58 mmHg Concurrent Access: falseAV Fistula Upper Arm (Left) Arterial BP Standing (Pre-Dialysis) 169/63 mmHg BP Standing (P ost-Dialysis) 128/47 mmHg Sitting Heart Rate Pre-Dialysis 56 BPM Sitting Heart Rate Post-Dialysis 59 BPM Standing Heart Rate Pre-Dialysis 57 BPM Standing Heart Rate Post-Dialysis 59 BPM Temperature Pre-Dialysis 97 degF Temperature Post -Dialysis 97 degF February 06, 2023 In-Center Hemodialysis Treatment 4050-79-12S46:39:39.000Z 1986-95-26R33:13:39.000Z BP Sitting (Pre-Dialysis) 167/56 mmHg BP Sitting (Post-Dialysis) 123/48 mmHg Concurrent Access: falseAV Fistula Upper Arm (Left) Arterial BP Standing (Pre-Dialysis) 173/72 mmHg BP Standing (P ost-Dialysis) 122/42 mmHg Sitting Heart Rate Pre-Dialysis 62 BPM Sitting Heart Rate Post-Dialysis 60 BPM Standing Heart Rate Pre-Dialysis 65 BPM Standing Heart Rate Post-Dialysis 58 BPM Temperature Pre-Dialysis 97.8 degF Temperature Post -Dialysis 97.8 degF February 03, 2023 In-Center Hemodialysis Treatment 2143-38-05K14:44:00.000Z 8963-44-63D61:25:38.000Z BP Sitting (Pre-Dialysis) 130/58 mmHg BP Sitting (Post-Dialysis) 123/46 mmHg Concurrent Access: falseAV Fistula Upper Arm (Left) Arterial Sitting Heart Rate Pre-Dialysis 63 BPM Sitting H eart Rate Post-Dialysis 54 BPM Temperature Pre-Dialysis 98.6 degF February 01, 2023 In-Center Hemodialysis Treatment [id number]:44:38.000Z [id number]:12:38.000Z BP Sitting (Pre-Dialysis) 153/57 mmHg BP Sitting (Post-Dialysis) 124/62 mmHg Concurrent Access: falseAV Fistula Upper Arm (Left) Arterial Sitting Heart Rate Pre-Dialysis 66 BPM BP Standing (Post-Dialysis) 110/53 mmHg Temperature Pre-Dialysis 97.9 degF Sitting Heart Ra te Post-Dialysis 62 BPM Standing Heart Rate Post-Ruba lysis 62 BPM Temperature Post-Dialysis 97 degF January 30, 2023 In-Center Hemodialysis Treatment 7523-10-74G98:30:00.000Z 8277-89-09V77:01:27.000Z BP Sitting (Pre-Dialysis) 157/63 mmHg BP Sitting (Post-Dialysis) 94/48 mmHg Concurrent Access: falseAV Fistula Upper Arm (Left) Arterial BP Standing (Pre-Dialysis) 163/67 mmHg Sitti ng Heart Rate Post-Dialysis 57 BPM Sitting Heart Rate Pre-Dialysis 57 BPM Temperatu re Post-Dialysis 97.9 degF Standing Heart Rate Pre-Dialysis 59 BPM Temperature Pre-Dialysis 98 degF January 27, 2023 In-Center Hemodialysis Treatment 1153-53-83J25:38:00.000Z 1932-49-83L09:12:17.000Z BP Sitting (Pre-Dialysis) 146/56 mmHg BP Sitting (Post-Dialysis) 106/44 mmHg Concurrent Access: falseAV Fistula Upper Arm (Left) Arterial Sitting Heart Rate Pre-Dialysis 60 BPM Sitting H eart Rate Post-Dialysis 59 BPM Temperature Pre-Dialysis 97.1 degF Temperature Post -Dialysis 97 degF January 25, 2023 In-Center Hemodialysis Treatment 2279-24-13I54:40:00.000Z 2414-56-76L06:59:17.000Z BP Sitting (Pre-Dialysis) 174/74 mmHg BP Sitting (Post-Dialysis) 107/57 mmHg Concurrent Access: falseAV Fistula Upper Arm (Left) Arterial BP Standing (Pre-Dialysis) 161/70 mmHg Sitti ng Heart Rate Post-Dialysis 60 BPM Sitting Heart Rate Pre-Dialysis 66 BPM Temperatu re Post-Dialysis 97.4 degF Standing Heart Rate Pre-Dialysis 63 BPM Temperature Pre-Dialysis 97 degF January 23, 2023 In-Center Hemodialysis Treatment 1979-43-95B99:39:00.000Z 4127-49-21D89:06:17.000Z BP Sitting (Pre-Dialysis) 160/59 mmHg BP Sitting (Post-Dialysis) 94/46 mmHg Concurrent Access: falseAV Fistula Upper Arm (Left) Arterial BP Standing (Pre-Dialysis) 157/60 mmHg Sitti ng Heart Rate Post-Dialysis 61 BPM Sitting Heart Rate Pre-Dialysis 62 BPM Temperatu re Post-Dialysis 97.2 degF Standing Heart Rate Pre-Dialysis 62 BPM Temperature Pre-Dialysis 97.8 degF January 20, 2023 In-Center Hemodialysis Treatment [id number]:39:00.000Z 3682-40-97B52:14:37.000Z BP Sitting (Pre-Dialysis) 132/60 mmHg BP Sitting (Post-Dialysis) 131/57 mmHg Concurrent Access: falseAV Fistula Upper Arm (Left) Arterial Sitting Heart Rate Pre-Dialysis 57 BPM Sitting H eart Rate Post-Dialysis 60 BPM Temperature Pre-Dialysis 97.4 degF Temperature Post -Dialysis 97 degF January 18, 2023 In-Center Hemodialysis Treatment 0556-98-06U07:41:00.000Z 8016-95-59L58:13:37.000Z BP Sitting (Pre-Dialysis) 152/64 mmHg BP Sitting (Post-Dialysis) 117/54 mmHg Concurrent Access: falseAV Fistula Upper Arm (Left) Arterial Sitting Heart Rate Pre-Dialysis 58 BPM BP Standing (Post-Dialysis) 117/54 mmHg Temperature Pre-Dialysis 97.5 degF Sitting Heart Ra te Post-Dialysis 60 BPM Standing Heart Rate Post-Ruba lysis 60 BPM Temperature Post-Dialysis 97 .9 degF January 16, 2023 In-Center Hemodialysis Treatment 4298-05-46S49:22:00.000Z 6951-15-41F63:00:37.000Z BP Sitting (Pre-Dialysis) 148/76 mmHg BP Sitting (Post-Dialysis) 105/49 mmHg Concurrent Access: falseAV Fistula Upper Arm (Left) Arterial BP Standing (Pre-Dialysis) 136/56 mmHg Sitti ng Heart Rate Post-Dialysis 58 BPM Sitting Heart Rate Pre-Dialysis 61 BPM Temperatu re Post-Dialysis 97.5 degF Standing Heart Rate Pre-Dialysis 59 BPM Temperature Pre-Dialysis 97.3 degF January 13, 2023 In-Center Hemodialysis Treatment 2013-18-09L14:39:00.000Z 5551-68-20E42:12:08.000Z BP Sitting (Pre-Dialysis) 155/65 mmHg BP Sitting (Post-Dialysis) 93/68 mmHg Concurrent Access: falseAV Fistula Upper Arm (Left) Arterial BP Standing (Pre-Dialysis) 153/64 mmHg BP Standing (P ost-Dialysis) 122/59 mmHg Sitting Heart Rate Pre-Dialysis 60 BPM Sitting Heart Rate Post-Dialysis 63 BPM Standing Heart Rate Pre-Dialysis 60 BPM Standing Heart Rate Post-Dialysis 63 BPM Temperature Pre-Dialysis 97.8 degF Temperature Post -Dialysis 97 degF January 11, 2023 In-Center Hemodialysis Treatment 3155-24-96Y77:41:00.000Z 0769-93-04H71:16:15.000Z BP Sitting (Pre-Dialysis) 153/68 mmHg BP Sitting (Post-Dialysis) 110/49 mmHg Concurrent Access: falseAV Fistula Upper Arm (Left) Arterial BP Standing (Pre-Dialysis) 150/62 mmHg BP Standing (P ost-Dialysis) 99/51 mmHg Sitting Heart Rate Pre-Dialysis 56 BPM Sitting Heart Rate Post-Dialysis 56 BPM Standing Heart Rate Pre-Dialysis 57 BPM Standing Heart Rate Post-Dialysis 55 BPM Temperature Pre-Dialysis 97.3 degF Temperature Post -Dialysis 97.7 degF January 09, 2023 In-Center Hemodialysis Treatment 2612-05-26H37:43:00.000Z 1958-19-06P07:17:15.000Z BP Sitting (Pre-Dialysis) 150/66 mmHg BP Sitting (Post-Dialysis) 118/54 mmHg Concurrent Access: falseAV Fistula Upper Arm (Left) Arterial Sitting Heart Rate Pre-Dialysis 58 BPM BP Standing (Post-Dialysis) 108/52 mmHg Temperature Pre-Dialysis 97.6 degF Sitting Heart Ra te Post-Dialysis 69 BPM Standing Heart Rate Post-Ruba lysis 59 BPM Temperature Post-Dialysis 97 .2 degF January 06, 2023 In-Center Hemodialysis Treatment 4038-52-96Z31:40:00.000Z 0151-69-44Z82:16:21.000Z BP Sitting (Pre-Dialysis) 135/59 mmHg BP Sitting (Post-Dialysis) 122/46 mmHg Concurrent Access: falseAV Fistula Upper Arm (Left) Arterial BP Standing (Pre-Dialysis) 99/65 mmHg Sitting Heart Rate Post-Dialysis 55 BPM Sitting Heart Rate Pre-Dialysis 60 BPM Temperatu re Post-Dialysis 97 degF Standing Heart Rate Pre-Dialysis 62 BPM Temperature Pre-Dialysis 97 degF January 04, 2023 In-Center Hemodialysis Treatment 4113-15-49Z19:45:00.000Z 3211-37-59L02:17:21.000Z BP Sitting (Pre-Dialysis) 153/69 mmHg BP Sitting (Post-Dialysis) 115/53 mmHg Concurrent Access: falseAV Fistula Upper Arm (Left) Arterial Sitting Heart Rate Pre-Dialysis 59 BPM BP Standing (Post-Dialysis) 115/51 mmHg Temperature Pre-Dialysis 97.8 degF Sitting Heart Ra te Post-Dialysis 57 BPM Standing Heart Rate Post-Ruba lysis 57 BPM Temperature Post-Dialysis 97 .3 degF January 02, 2023 In-Center Hemodialysis Treatment 7783-01-34D43:33:00.000Z 6309-39-38O57:03:21.000Z BP Sitting (Pre-Dialysis) 111/41 mmHg BP Sitting (Post-Dialysis) 117/54 mmHg Concurrent Access: falseAV Fistula Upper Arm (Left) Arterial BP Standing (Pre-Dialysis) 124/50 mmHg BP Standing (P ost-Dialysis) 116/51 mmHg Sitting Heart Rate Pre-Dialysis 60 BPM Sitting Heart Rate Post-Dialysis 58 BPM Standing Heart Rate Pre-Dialysis 62 BPM Standing Heart Rate Post-Dialysis 59 BPM Temperature Pre-Dialysis 98 degF Temperature Post -Dialysis 97.8 degF December 30, 2022 In-Center Hemodialysis Treatment 2513-40-66B27:37:43.000Z 2910-36-22W55:09:43.000Z BP Sitting (Pre-Dialysis) 140/64 mmHg BP Sitting (Post-Dialysis) 106/63 mmHg Concurrent Access: falseAV Fistula Upper Arm (Left) Arterial BP Standing (Pre-Dialysis) 143/62 mmHg BP Standing (P ost-Dialysis) 108/48 mmHg Sitting Heart Rate Pre-Dialysis 64 BPM Sitting Heart Rate Post-Dialysis 60 BPM Standing Heart Rate Pre-Dialysis 67 BPM Standing Heart Rate Post-Dialysis 58 BPM Temperature Pre-Dialysis 97.5 degF Temperature Post -Dialysis 97 degF December 28, 2022 In-Center Hemodialysis Treatment 7636-45-45L85:42:00.000Z 7455-88-57I01:01:43.000Z BP Sitting (Pre-Dialysis) 156/60 mmHg BP Sitting (Post-Dialysis) 138/57 mmHg Concurrent Access: falseAV Fistula Upper Arm (Left) Arterial BP Standing (Pre-Dialysis) 153/60 mmHg Sitting Heart Rate Post-Dialysis 65 BPM Sitting Heart Rate Pre-Dialysis 63 BPM Temperatu re Post-Dialysis 97 degF Standing Heart Rate Pre-Dialysis 66 BPM Temperature Pre-Dialysis 97.9 degF 2022 In-Center Hemodialysis Treatment 8479-58-53J86:41:00.000Z 4645-49-63N00:16:44.000Z BP Sitting (Pre-Dialysis) 123/61 mmHg BP Sitting (Post-Dialysis) 127/54 mmHg Concurrent Access: falseAV Fistula Upper Arm (Left) Arterial Sitting Heart Rate Pre-Dialysis 67 BPM BP Standing (Post-Dialysis) 124/49 mmHg Temperature Pre-Dialysis 97.5 degF Sitting Heart Ra te Post-Dialysis 66 BPM Standing Heart Rate Post-Ruba lysis 67 BPM Temperature Post-Dialysis 97 .5 degF December 21, 2022 In-Center Hemodialysis Treatment 8241-50-40B69:38:00.000Z 9709-97-98V39:14:27.000Z BP Sitting (Pre-Dialysis) 131/50 mmHg BP Sitting (Post-Dialysis) 117/55 mmHg Concurrent Access: falseAV Fistula Upper Arm (Left) Arterial BP Standing (Pre-Dialysis) 133/51 mmHg BP Standing (P ost-Dialysis) 122/67 mmHg Sitting Heart Rate Pre-Dialysis 78 BPM Sitting Heart Rate Post-Dialysis 68 BPM Standing Heart Rate Pre-Dialysis 72 BPM Standing Heart Rate Post-Dialysis 75 BPM Temperature Pre-Dialysis 97.8 degF Temperature Post -Dialysis 97.6 degF December 19, 2022 In-Center Hemodialysis Treatment [id number]:39:26.000Z 2462-31-05O56:14:27.000Z BP Sitting (Pre-Dialysis) 153/71 mmHg BP Sitting (Post-Dialysis) 117/57 mmHg Concurrent Access: falseAV Fistula Upper Arm (Left) Arterial BP Standing (Pre-Dialysis) 148/70 mmHg BP Standing (P ost-Dialysis) 132/55 mmHg Sitting Heart Rate Pre-Dialysis 74 BPM Sitting Heart Rate Post-Dialysis 73 BPM Standing Heart Rate Pre-Dialysis 76 BPM Standing Heart Rate Post-Dialysis 72 BPM Temperature Pre-Dialysis 97.6 degF Temperature Post -Dialysis 97.7 degF December 15, 2022 In-Center Hemodialysis Treatment 7915-39-46H10:13:08.000Z 7888-04-61X29:45:08.000Z BP Sitting (Pre-Dialysis) 145/69 mmHg BP Sitting (Post-Dialysis) 119/54 mmHg Concurrent Access: falseAV Fistula Upper Arm (Left) Arterial BP Standing (Pre-Dialysis) 162/76 mmHg Sitting Heart Rate Post-Dialysis 69 BPM Sitting Heart Rate Pre-Dialysis 72 BPM Temperatu re Post-Dialysis 97 degF Standing Heart Rate Pre-Dialysis 78 BPM Temperature Pre-Dialysis 97.3 degF December 13, 2022 In-Center Hemodialysis Treatment 2561-15-04U95:30:08.000Z 4134-39-43J55:02:53.000Z BP Sitting (Pre-Dialysis) 152/67 mmHg BP Sitting (Post-Dialysis) 132/66 mmHg Concurrent Access: falseAV Fistula Upper Arm (Left) Arterial BP Standing (Pre-Dialysis) 158/70 mmHg Sitting Heart Rate Post-Dialysis 63 BPM Sitting Heart Rate Pre-Dialysis 65 BPM Temperatu re Post-Dialysis 97 degF Standing Heart Rate Pre-Dialysis 67 BPM Temperature Pre-Dialysis 97 degF December 11, 2022 In-Center Hemodialysis Treatment [id number]:43:02.000Z 9245-26-77Y44:16:02.000Z BP Sitting (Pre-Dialysis) 153/61 mmHg BP Sitting (Post-Dialysis) 124/57 mmHg Concurrent Access: falseAV Fistula Upper Arm (Left) Arterial Sitting Heart Rate Pre-Dialysis 66 BPM Sitting H eart Rate Post-Dialysis 69 BPM Temperature Pre-Dialysis 98 degF Temperature Post -Dialysis 97.6 degF December 09, 2022 In-Center Hemodialysis Treatment 7793-88-37U58:51:00.000Z 3698-46-64K32:20:35.000Z BP Sitting (Pre-Dialysis) 143/64 mmHg BP Sitting (Post-Dialysis) 120/62 mmHg Concurrent Access: falseAV Fistula Upper Arm (Left) Arterial BP Standing (Pre-Dialysis) 146/64 mmHg BP Standing (P ost-Dialysis) 128/52 mmHg Sitting Heart Rate Pre-Dialysis 63 BPM Sitting Heart Rate Post-Dialysis 66 BPM Standing Heart Rate Pre-Dialysis 68 BPM Standing Heart Rate Post-Dialysis 63 BPM Temperature Pre-Dialysis 98.1 degF Temperature Post -Dialysis 97.9 degF December 07, 2022 In-Center Hemodialysis Treatment 3645-14-55O07:42:00.000Z 5654-00-91T16:17:35.000Z BP Sitting (Pre-Dialysis) 153/64 mmHg BP Sitting (Post-Dialysis) 118/58 mmHg Concurrent Access: falseAV Fistula Upper Arm (Left) Arterial BP Standing (Pre-Dialysis) 153/72 mmHg BP Standing (P ost-Dialysis) 118/52 mmHg Sitting Heart Rate Pre-Dialysis 61 BPM Sitting Heart Rate Post-Dialysis 57 BPM Standing Heart Rate Pre-Dialysis 64 BPM Standing Heart Rate Post-Dialysis 57 BPM Temperature Pre-Dialysis 98 degF Temperature Post -Dialysis 97.6 degF December 05, 2022 In-Center Hemodialysis Treatment 8498-10-49S13:45:35.000Z 0912-69-84T36:18:35.000Z BP Sitting (Pre-Dialysis) 160/67 mmHg BP Sitting (Post-Dialysis) 129/61 mmHg Concurrent Access: falseAV Fistula Upper Arm (Left) Arterial BP Standing (Pre-Dialysis) 141/62 mmHg BP Standing (P ost-Dialysis) 116/54 mmHg Sitting Heart Rate Pre-Dialysis 62 BPM Sitting Heart Rate Post-Dialysis 59 BPM Standing Heart Rate Pre-Dialysis 66 BPM Standing Heart Rate Post-Dialysis 61 BPM Temperature Pre-Dialysis 97.9 degF Temperature Post -Dialysis 97.5 degF December 02, 2022 In-Center Hemodialysis Treatment 6427-88-47O29:38:10.000Z 2005-34-64S37:17:10.000Z BP Sitting (Pre-Dialysis) 127/59 mmHg BP Sitting (Post-Dialysis) 140/58 mmHg Concurrent Access: falseAV Fistula Upper Arm (Left) Arterial BP Standing (Pre-Dialysis) 145/57 mmHg Sitti ng Heart Rate Post-Dialysis 51 BPM Sitting Heart Rate Pre-Dialysis 60 BPM Temperatu re Post-Dialysis 97.9 degF Standing Heart Rate Pre-Dialysis 58 BPM Temperature Pre-Dialysis 98 degF November 30, 2022 In-Center Hemodialysis Treatment [id number]:35:00.000Z 6181-33-14U31:03:10.000Z BP Sitting (Pre-Dialysis) 164/74 mmHg BP Sitting (Post-Dialysis) 142/59 mmHg Concurrent Access: falseAV Fistula Upper Arm (Left) Arterial Sitting Heart Rate Pre-Dialysis 58 BPM Sitting H eart Rate Post-Dialysis 53 BPM Temperature Pre-Dialysis 97.4 degF Temperature Post -Dialysis 97.8 degF November 28, 2022 In-Center Hemodialysis Treatment 7867-53-71G34:40:10.000Z 1039-97-63N67:16:10.000Z BP Sitting (Pre-Dialysis) 181/76 mmHg BP Sitting (Post-Dialysis) 120/48 mmHg Concurrent Access: falseAV Fistula Upper Arm (Left) Arterial BP Standing (Pre-Dialysis) 174/80 mmHg BP Standing (P ost-Dialysis) 171/75 mmHg Sitting Heart Rate Pre-Dialysis 72 BPM Sitting Heart Rate Post-Dialysis 72 BPM Standing Heart Rate Pre-Dialysis 67 BPM Standing Heart Rate Post-Dialysis 60 BPM Temperature Pre-Dialysis 97 degF Temperature Post -Dialysis 97 degF November 25, 2022 In-Center Hemodialysis Treatment 1470-31-60K93:33:00.000Z 2978-67-64O89:03:24.000Z BP Sitting (Pre-Dialysis) 159/52 mmHg BP Sitting (Post-Dialysis) 146/88 mmHg Concurrent Access: falseAV Fistula Upper Arm (Left) ArterialCentral Venous Catheter (CVC) Chest (Right) Venous BP Standing (Pre-Dialysis) 139/59 mmHg Sitti ng Heart Rate Post-Dialysis 74 BPM Sitting Heart Rate Pre-Dialysis 70 BPM Temperatu re Post-Dialysis 97.8 degF Standing Heart Rate Pre-Dialysis 82 BPM Temperature Pre-Dialysis 97.2 degF November 23, 2022 In-Center Hemodialysis Treatment 2809-56-42L73:44:00.000Z 2728-96-21Z06:16:18.000Z BP Sitting (Pre-Dialysis) 135/75 mmHg BP Sitting (Post-Dialysis) 156/67 mmHg Concurrent Access: falseAV Fistula Upper Arm (Left) ArterialCentral Venous Catheter (CVC) Chest (Right) Venous Sitting Heart Rate Pre-Dialysis 61 BPM Sitting H eart Rate Post-Dialysis 72 BPM Temperature Pre-Dialysis 97.8 degF Temperature Post -Dialysis 97.8 degF November 21, 2022 In-Center Hemodialysis Treatment 0697-39-35E62:41:00.000Z 8516-42-78C94:11:00.000Z BP Sitting (Pre-Dialysis) 182/75 mmHg BP Sitting (Post-Dialysis) 168/66 mmHg Concurrent Access: falseAV Fistula Upper Arm (Left) ArterialCentral Venous Catheter (CVC) Chest (Right) Venous BP Standing (Pre-Dialysis) 185/82 mmHg Sitti ng Heart Rate Post-Dialysis 73 BPM Sitting Heart Rate Pre-Dialysis 70 BPM Temperatu re Post-Dialysis 97.8 degF Standing Heart Rate Pre-Dialysis 75 BPM Temperature Pre-Dialysis 97.8 degF November 18, 2022 In-Center Hemodialysis Treatment 4534-68-75N90:40:00.000Z 3663-89-58L06:10:15.000Z BP Sitting (Pre-Dialysis) 169/71 mmHg BP Sitting (Post-Dialysis) 120/87 mmHg Concurrent Access: falseAV Fistula Upper Arm (Left) ArterialCentral Venous Catheter (CVC) Chest (Right) Venous BP Standing (Pre-Dialysis) 138/61 mmHg Sitti ng Heart Rate Post-Dialysis 63 BPM Sitting Heart Rate Pre-Dialysis 78 BPM Temperatu re Post-Dialysis 97.3 degF Standing Heart Rate Pre-Dialysis 77 BPM Temperature Pre-Dialysis 97.2 degF November 16, 2022 In-Center Hemodialysis Treatment 1152-49-79L43:41:00.000Z 5158-48-07L96:17:14.000Z BP Sitting (Pre-Dialysis) 161/73 mmHg BP Sitting (Post-Dialysis) 157/82 mmHg Concurrent Access: falseAV Fistula Upper Arm (Left) ArterialCentral Venous Catheter (CVC) Chest (Right) Venous BP Standing (Pre-Dialysis) 165/77 mmHg Sitti ng Heart Rate Post-Dialysis 66 BPM Sitting Heart Rate Pre-Dialysis 73 BPM Temperatu re Post-Dialysis 97.2 degF Standing Heart Rate Pre-Dialysis 74 BPM Temperature Pre-Dialysis 97.6 degF November 14, 2022 In-Center Hemodialysis Treatment 2731-42-48M89:42:14.000Z 1805-61-33U75:13:14.000Z BP Sitting (Pre-Dialysis) 169/71 mmHg BP Sitting (Post-Dialysis) 166/84 mmHg Concurrent Access: falseAV Fistula Upper Arm (Left) ArterialCentral Venous Catheter (CVC) Chest (Right) Venous BP Standing (Pre-Dialysis) 150/70 mmHg BP Standing (P ost-Dialysis) 154/66 mmHg Sitting Heart Rate Pre-Dialysis 69 BPM Sitting Heart Rate Post-Dialysis 66 BPM Standing Heart Rate Pre-Dialysis 70 BPM Standing Heart Rate Post-Dialysis 63 BPM Temperature Pre-Dialysis 97.9 degF Temperature Post -Dialysis 97.7 degF November 11, 2022 In-Center Hemodialysis Treatment 7790-56-88S53:35:00.000Z 8777-90-10U53:07:40.000Z BP Sitting (Pre-Dialysis) 156/66 mmHg BP Sitting (Post-Dialysis) 154/63 mmHg Concurrent Access: falseAV Fistula Upper Arm (Left) ArterialCentral Venous Catheter (CVC) Chest (Right) Venous Sitting Heart Rate Pre-Dialysis 68 BPM BP Standing (Post-Dialysis) 155/69 mmHg Temperature Pre-Dialysis 97.8 degF Sitting Heart Ra te Post-Dialysis 67 BPM Standing Heart Rate Post-Ruba lysis 68 BPM Temperature Post-Dialysis 97 .8 degF November 09, 2022 In-Center Hemodialysis Treatment 2580-55-47O24:43:00.000Z 3043-60-51Z86:23:40.000Z BP Sitting (Pre-Dialysis) 163/63 mmHg BP Sitting (Post-Dialysis) 148/70 mmHg Concurrent Access: falseAV Fistula Upper Arm (Left) ArterialCentral Venous Catheter (CVC) Chest (Right) Venous Sitting Heart Rate Pre-Dialysis 76 BPM BP Standing (Post-Dialysis) 147/69 mmHg Temperature Pre-Dialysis 97.8 degF Sitting Heart Ra te Post-Dialysis 67 BPM Standing Heart Rate Post-Ruba lysis 68 BPM Temperature Post-Dialysis 97 .8 degF November 07, 2022 In-Center Hemodialysis Treatment 4982-50-85C71:37:00.000Z 1072-61-96R21:10:40.000Z BP Sitting (Pre-Dialysis) 146/65 mmHg BP Sitting (Post-Dialysis) 169/67 mmHg Concurrent Access: falseAV Fistula Upper Arm (Left) ArterialCentral Venous Catheter (CVC) Chest (Right) Venous BP Standing (Pre-Dialysis) 129/59 mmHg Sitti ng Heart Rate Post-Dialysis 56 BPM Sitting Heart Rate Pre-Dialysis 61 BPM Temperatu re Post-Dialysis 97.5 degF Standing Heart Rate Pre-Dialysis 64 BPM Temperature Pre-Dialysis 97.6 degF November 04, 2022 In-Center Hemodialysis Treatment [id number]:32:00.000Z 6566-34-02X67:06:46.000Z BP Sitting (Pre-Dialysis) 156/64 mmHg BP Sitting (Post-Dialysis) 140/58 mmHg Concurrent Access: falseAV Fistula Upper Arm (Left) ArterialCentral Venous Catheter (CVC) Chest (Right) Venous BP Standing (Pre-Dialysis) 142/60 mmHg Sitti ng Heart Rate Post-Dialysis 66 BPM Sitting Heart Rate Pre-Dialysis 66 BPM Temperatu re Post-Dialysis 97.7 degF Standing Heart Rate Pre-Dialysis 69 BPM Temperature Pre-Dialysis 97 degF November 02, 2022 In-Center Hemodialysis Treatment 0012-26-94F42:40:00.000Z 5963-03-84A95:12:46.000Z BP Sitting (Pre-Dialysis) 163/72 mmHg BP Sitting (Post-Dialysis) 174/54 mmHg Concurrent Access: falseCentral Venous Catheter (CVC) Chest (Right) ArterialAV Fistula Upper Arm (Left) Venous Sitting Heart Rate Pre-Dialysis 65 BPM BP Standi ng (Post-Dialysis) 137/60 mmHg Temperature Pre-Dialysis 97 degF Sitting Heart Ra te Post-Dialysis 75 BPM Standing Heart Rate Post-Ruba lysis 64 BPM Temperature Post-Dialysis 98 .1 degF October 31, 2022 In-Center Hemodialysis Treatment [id number]:39:46.000Z 0115-54-48F32:10:46.000Z BP Sitting (Pre-Dialysis) 169/73 mmHg BP Sitting (Post-Dialysis) 152/70 mmHg Concurrent Access: falseCentral Venous Catheter (CVC) Chest (Right) ArterialAV Fistula Upper Arm (Left) Venous BP Standing (Pre-Dialysis) 165/75 mmHg BP Standing (P ost-Dialysis) 158/62 mmHg Sitting Heart Rate Pre-Dialysis 70 BPM Sitting Heart Rate Post-Dialysis 62 BPM Standing Heart Rate Pre-Dialysis 69 BPM Standing Heart Rate Post-Dialysis 63 BPM Temperature Pre-Dialysis 97.3 degF Temperature Post -Dialysis 98 degF October 30, 2022 Additional Day Of Dialysis Treatment 9411-98-14D68:41:47.000Z 5068-41-33A20:41:47.000Z BP Sitting (Pre-Dialysis) 167/70 mmHg BP Sitting (Post-Dialysis) 155/66 mmHg Concurrent Access: falseCentral Venous Catheter (CVC) Chest (Right) ArterialAV Fistula Upper Arm (Left) Venous Sitting Heart Rate Pre-Dialysis 63 BPM Sitting H eart Rate Post-Dialysis 60 BPM Temperature Pre-Dialysis 97.3 degF Temperature Post -Dialysis 97.7 degF October 28, 2022 In-Center Hemodialysis Treatment [id number]:40:00.000Z 9264-39-65B11:15:13.000Z BP Sitting (Pre-Dialysis) 176/75 mmHg BP Sitting (Post-Dialysis) 150/60 mmHg Concurrent Access: falseCentral Venous Catheter (CVC) Chest (Right) ArterialAV Fistula Upper Arm (Left) Venous Sitting Heart Rate Pre-Dialysis 67 BPM Sitting H eart Rate Post-Dialysis 61 BPM Temperature Pre-Dialysis 97.8 degF Temperature Post -Dialysis 97.8 degF October 26, 2022 In-Center Hemodialysis Treatment 0984-17-13G49:39:00.000Z 8777-14-18D50:14:13.000Z BP Sitting (Pre-Dialysis) 147/66 mmHg BP Sitting (Post-Dialysis) 146/66 mmHg Concurrent Access: falseCentral Venous Catheter (CVC) Chest (Right) ArterialAV Fistula Upper Arm (Left) Venous Sitting Heart Rate Pre-Dialysis 73 BPM BP Standing (Post-Dialysis) 138/78 mmHg Temperature Pre-Dialysis 97.8 degF Sitting Heart Ra te Post-Dialysis 63 BPM Standing Heart Rate Post-Ruba lysis 66 BPM Temperature Post-Dialysis 97 degF October 24, 2022 In-Center Hemodialysis Treatment [id number]:42:00.000Z 5316-42-43R17:16:13.000Z BP Sitting (Pre-Dialysis) 170/72 mmHg BP Sitting (Post-Dialysis) 171/66 mmHg Concurrent Access: falseCentral Venous Catheter (CVC) Chest (Right) ArterialAV Fistula Upper Arm (Left) Venous BP Standing (Pre-Dialysis) 168/65 mmHg BP Standing (P ost-Dialysis) 180/76 mmHg Sitting Heart Rate Pre-Dialysis 68 BPM Sitting Heart Rate Post-Dialysis 68 BPM Standing Heart Rate Pre-Dialysis 69 BPM Standing Heart Rate Post-Dialysis 64 BPM Temperature Pre-Dialysis 97.9 degF Temperature Post -Dialysis 97.6 degF October 21, 2022 In-Center Hemodialysis Treatment [id number]:42:18.000Z 2074-98-66J86:12:18.000Z BP Sitting (Pre-Dialysis) 161/64 mmHg BP Sitting (Post-Dialysis) 128/60 mmHg Concurrent Access: falseCentral Venous Catheter (CVC) Chest (Right) ArterialAV Fistula Upper Arm (Left) Venous Sitting Heart Rate Pre-Dialysis 60 BPM BP Standing (Post-Dialysis) 127/55 mmHg Temperature Pre-Dialysis 97.2 degF Sitting Heart Ra te Post-Dialysis 53 BPM Standing Heart Rate Post-Ruba lysis 55 BPM Temperature Post-Dialysis 97 .7 degF October 19, 2022 In-Center Hemodialysis Treatment [id number]:45:00.000Z 6460-80-78E07:46:18.000Z BP Sitting (Pre-Dialysis) 184/81 mmHg BP Sitting (Post-Dialysis) 124/52 mmHg Concurrent Access: falseCentral Venous Catheter (CVC) Chest (Right) ArterialAV Fistula Upper Arm (Left) Venous Sitting Heart Rate Pre-Dialysis 65 BPM BP Standing (Post-Dialysis) 113/52 mmHg Temperature Pre-Dialysis 97.8 degF Sitting Heart Ra te Post-Dialysis 62 BPM Standing Heart Rate Post-Ruba lysis 61 BPM Temperature Post-Dialysis 97 .6 degF October 17, 2022 In-Center Hemodialysis Treatment [id number]:45:00.000Z 4764-64-76K41:16:51.000Z BP Sitting (Pre-Dialysis) 178/83 mmHg BP Sitting (Post-Dialysis) 141/40 mmHg Concurrent Access: falseCentral Venous Catheter (CVC) Chest (Right) ArterialAV Fistula Upper Arm (Left) Venous Sitting Heart Rate Pre-Dialysis 66 BPM Sitting H eart Rate Post-Dialysis 63 BPM Temperature Pre-Dialysis 97 degF Temperature Post -Dialysis 97 degF October 14, 2022 In-Center Hemodialysis Treatment [id number]:45:00.000Z 7201-35-66W98:19:52.000Z BP Sitting (Pre-Dialysis) 142/68 mmHg BP Sitting (Post-Dialysis) 150/70 mmHg Concurrent Access: falseCentral Venous Catheter (CVC) Chest (Right) ArterialAV Fistula Upper Arm (Left) Venous Sitting Heart Rate Pre-Dialysis 66 BPM Sitting H eart Rate Post-Dialysis 61 BPM Temperature Pre-Dialysis 97.6 degF Temperature Post -Dialysis 97.6 degF October 12, 2022 In-Center Hemodialysis Treatment [id number]:42:00.000Z 9668-16-46H37:15:52.000Z BP Sitting (Pre-Dialysis) 143/65 mmHg BP Sitting (Post-Dialysis) 153/63 mmHg Concurrent Access: falseCentral Venous Catheter (CVC) Chest (Right) ArterialAV Fistula Upper Arm (Left) Venous Sitting Heart Rate Pre-Dialysis 74 BPM BP Standing (Post-Dialysis) 164/56 mmHg Temperature Pre-Dialysis 97.3 degF Sitting Heart Ra te Post-Dialysis 61 BPM Standing Heart Rate Post-Ruba lysis 63 BPM Temperature Post-Dialysis 97 .7 degF October 10, 2022 In-Center Hemodialysis Treatment [id number]:38:00.000Z 4599-96-89W33:13:52.000Z BP Sitting (Pre-Dialysis) 152/71 mmHg BP Sitting (Post-Dialysis) 127/48 mmHg Concurrent Access: falseCentral Venous Catheter (CVC) Chest (Right) ArterialAV Fistula Upper Arm (Left) Venous BP Standing (Pre-Dialysis) 151/61 mmHg BP Standing (P ost-Dialysis) 140/61 mmHg Sitting Heart Rate Pre-Dialysis 66 BPM Sitting Heart Rate Post-Dialysis 59 BPM Standing Heart Rate Pre-Dialysis 69 BPM Standing Heart Rate Post-Dialysis 60 BPM Temperature Pre-Dialysis 97.9 degF Temperature Post -Dialysis 97.8 degF October 07, 2022 In-Center Hemodialysis Treatment [id number]:11:15.000Z [id number]:27:15.000Z BP Sitting (Pre-Dialysis) 190/82 mmHg BP Sitting (Post-Dialysis) 172/63 mmHg Concurrent Access: falseCentral Venous Catheter (CVC) Chest (Right) ArterialAV Fistula Upper Arm (Left) Venous Sitting Heart Rate Pre-Dialysis 70 BPM Sitting H eart Rate Post-Dialysis 60 BPM Temperature Pre-Dialysis 97.3 degF Temperature Post -Dialysis 97.4 degF October 05, 2022 In-Center Hemodialysis Treatment 8036-71-00R62:45:00.000Z 5588-93-70I22:14:15.000Z BP Sitting (Pre-Dialysis) 180/67 mmHg BP Sitting (Post-Dialysis) 170/72 mmHg Concurrent Access: falseCentral Venous Catheter (CVC) Chest (Right) ArterialAV Fistula Upper Arm (Left) Venous Sitting Heart Rate Pre-Dialysis 62 BPM Sitting H eart Rate Post-Dialysis 60 BPM Temperature Pre-Dialysis 98.1 degF Temperature Post -Dialysis 97.8 degF October 03, 2022 In-Center Hemodialysis Treatment 8376-74-24B99:45:00.000Z 4600-46-30U04:23:15.000Z BP Sitting (Pre-Dialysis) 150/61 mmHg BP Sitting (Post-Dialysis) 130/53 mmHg Concurrent Access: falseCentral Venous Catheter (CVC) Chest (Right) ArterialAV Fistula Upper Arm (Left) Venous Sitting Heart Rate Pre-Dialysis 59 BPM BP Standing (Post-Dialysis) 156/61 mmHg Temperature Pre-Dialysis 98.1 degF Sitting Heart Ra te Post-Dialysis 53 BPM Standing Heart Rate Post-Ruba lysis 54 BPM Temperature Post-Dialysis 97 .8 degF September 30, 2022 In-Center Hemodialysis Treatment [id number]:38:14.000Z [id number]:11:14.000Z BP Sitting (Pre-Dialysis) 195/69 mmHg BP Sitting (Post-Dialysis) 179/66 mmHg Concurrent Access: falseCentral Venous Catheter (CVC) Chest (Right) ArterialAV Fistula Upper Arm (Left) Venous Sitting Heart Rate Pre-Dialysis 60 BPM Sitting H eart Rate Post-Dialysis 55 BPM Temperature Pre-Dialysis 97.8 degF Temperature Post -Dialysis 97.8 degF September 28, 2022 In-Center Hemodialysis Treatment [id number]:43:00.000Z 5258-56-32H75:45:15.000Z BP Sitting (Pre-Dialysis) 146/67 mmHg BP Sitting (Post-Dialysis) 157/62 mmHg Concurrent Access: falseCentral Venous Catheter (CVC) Chest (Right) ArterialAV Fistula Upper Arm (Left) Venous Sitting Heart Rate Pre-Dialysis 63 BPM BP Standing (Post-Dialysis) 162/60 mmHg Temperature Pre-Dialysis 97.3 degF Sitting Heart Ra te Post-Dialysis 56 BPM Standing Heart Rate Post-Ruba lysis 58 BPM Temperature Post-Dialysis 97 .7 degF September 26, 2022 In-Center Hemodialysis Treatment [id number]:40:14.000Z 1247-63-86L14:11:15.000Z BP Sitting (Pre-Dialysis) 131/63 mmHg BP Sitting (Post-Dialysis) 145/65 mmHg Concurrent Access: falseCentral Venous Catheter (CVC) Chest (Right) ArterialAV Fistula Upper Arm (Left) Venous BP Standing (Pre-Dialysis) 137/64 mmHg BP Standing (P ost-Dialysis) 146/59 mmHg Sitting Heart Rate Pre-Dialysis 61 BPM Sitting Heart Rate Post-Dialysis 58 BPM Standing Heart Rate Pre-Dialysis 61 BPM Standing Heart Rate Post-Dialysis 58 BPM Temperature Pre-Dialysis 97.8 degF Temperature Post -Dialysis 97.8 degF September 23, 2022 In-Center Hemodialysis Treatment 1545-30-01F52:45:00.000Z 9675-08-55N71:20:15.000Z BP Sitting (Pre-Dialysis) 157/67 mmHg BP Sitting (Post-Dialysis) 146/59 mmHg Concurrent Access: falseCentral Venous Catheter (CVC) Chest (Right) ArterialAV Fistula Upper Arm (Left) Venous BP Standing (Pre-Dialysis) 156/66 mmHg BP Standing (P ost-Dialysis) 143/75 mmHg Sitting Heart Rate Pre-Dialysis 70 BPM Sitting Heart Rate Post-Dialysis 60 BPM Standing Heart Rate Pre-Dialysis 66 BPM Standing Heart Rate Post-Dialysis 61 BPM Temperature Pre-Dialysis 97.8 degF Temperature Post -Dialysis 97.8 degF September 21, 2022 In-Center Hemodialysis Treatment [id number]:44:15.000Z 8767-25-89B46:15:15.000Z BP Sitting (Pre-Dialysis) 155/61 mmHg BP Sitting (Post-Dialysis) 155/57 mmHg Concurrent Access: falseCentral Venous Catheter (CVC) Chest (Right) ArterialAV Fistula Upper Arm (Left) Venous BP Standing (Pre-Dialysis) 151/58 mmHg Sitti ng Heart Rate Post-Dialysis 59 BPM Sitting Heart Rate Pre-Dialysis 69 BPM Temperatu re Post-Dialysis 97.9 degF Standing Heart Rate Pre-Dialysis 69 BPM Temperature Pre-Dialysis 97.9 degF September 19, 2022 In-Center Hemodialysis Treatment [id number]:47:00.000Z 3367-64-14P13:25:15.000Z BP Sitting (Pre-Dialysis) 141/57 mmHg BP Sitting (Post-Dialysis) 147/56 mmHg Concurrent Access: falseCentral Venous Catheter (CVC) Chest (Right) ArterialAV Fistula Upper Arm (Left) Venous BP Standing (Pre-Dialysis) 137/79 mmHg Sitti ng Heart Rate Post-Dialysis 59 BPM Sitting Heart Rate Pre-Dialysis 65 BPM Temperatu re Post-Dialysis 97.9 degF Standing Heart Rate Pre-Dialysis 73 BPM Temperature Pre-Dialysis 97.9 degF September 16, 2022 In-Center Hemodialysis Treatment 0515-47-13C40:43:00.000Z 0518-43-01E31:15:07.000Z BP Sitting (Pre-Dialysis) 163/67 mmHg BP Sitting (Post-Dialysis) 156/68 mmHg Concurrent Access: falseCentral Venous Catheter (CVC) Chest (Right) ArterialAV Fistula Upper Arm (Left) Venous Sitting Heart Rate Pre-Dialysis 64 BPM Sitting H eart Rate Post-Dialysis 80 BPM Temperature Pre-Dialysis 97.8 degF Temperature Post -Dialysis 98 degF September 14, 2022 In-Center Hemodialysis Treatment [id number]:42:00.000Z 3445-91-03S58:13:08.000Z BP Sitting (Pre-Dialysis) 154/68 mmHg BP Sitting (Post-Dialysis) 149/62 mmHg Concurrent Access: falseCentral Venous Catheter (CVC) Chest (Right) ArterialAV Fistula Upper Arm (Left) Venous Sitting Heart Rate Pre-Dialysis 75 BPM BP Standing (Post-Dialysis) 151/66 mmHg Temperature Pre-Dialysis 97.8 degF Sitting Heart Ra te Post-Dialysis 61 BPM Standing Heart Rate Post-Ruba lysis 64 BPM Temperature Post-Dialysis 97 .5 degF September 12, 2022 In-Center Hemodialysis Treatment [id number]:40:00.000Z 7906-57-03L86:14:08.000Z BP Sitting (Pre-Dialysis) 111/77 mmHg BP Sitting (Post-Dialysis) 158/67 mmHg Concurrent Access: falseCentral Venous Catheter (CVC) Chest (Right) ArterialAV Fistula Upper Arm (Left) Venous Sitting Heart Rate Pre-Dialysis 59 BPM Sitting H eart Rate Post-Dialysis 58 BPM Temperature Pre-Dialysis 97.9 degF Temperature Post -Dialysis 97.9 degF September 09, 2022 In-Center Hemodialysis Treatment 7635-57-01M89:42:00.000Z 7027-11-27S12:15:08.000Z BP Sitting (Pre-Dialysis) 172/74 mmHg BP Sitting (Post-Dialysis) 107/61 mmHg Concurrent Access: falseCentral Venous Catheter (CVC) Chest (Right) ArterialAV Fistula Upper Arm (Left) Venous Sitting Heart Rate Pre-Dialysis 77 BPM Sitting H eart Rate Post-Dialysis 75 BPM Temperature Pre-Dialysis 97.6 degF Temperature Post -Dialysis 97.8 degF September 07, 2022 In-Center Hemodialysis Treatment [id number]:45:00.000Z 0662-67-61E78:19:08.000Z BP Sitting (Pre-Dialysis) 164/70 mmHg BP Sitting (Post-Dialysis) 166/61 mmHg Concurrent Access: falseCentral Venous Catheter (CVC) Chest (Right) ArterialAV Fistula Upper Arm (Left) Venous Sitting Heart Rate Pre-Dialysis 67 BPM Sitting H eart Rate Post-Dialysis 60 BPM Temperature Pre-Dialysis 97.9 degF Temperature Post -Dialysis 97.8 degF September 05, 2022 In-Center Hemodialysis Treatment [id number]:43:00.000Z 9091-78-37F56:13:08.000Z BP Sitting (Pre-Dialysis) 193/87 mmHg BP Sitting (Post-Dialysis) 166/73 mmHg Concurrent Access: falseCentral Venous Catheter (CVC) Chest (Right) ArterialAV Fistula Upper Arm (Left) Venous Sitting Heart Rate Pre-Dialysis 73 BPM Sitting H eart Rate Post-Dialysis 67 BPM Temperature Pre-Dialysis 97.7 degF Temperature Post -Dialysis 97.9 degF September 02, 2022 In-Center Hemodialysis Treatment 5422-30-12A75:28:00.000Z 2232-32-50E24:00:07.000Z BP Sitting (Pre-Dialysis) 176/73 mmHg BP Sitting (Post-Dialysis) 164/71 mmHg Concurrent Access: falseCentral Venous Catheter (CVC) Chest (Right) ArterialAV Fistula Upper Arm (Left) Venous Sitting Heart Rate Pre-Dialysis 81 BPM BP Standing (Post-Dialysis) 153/79 mmHg Temperature Pre-Dialysis 97.9 degF Sitting Heart Ra te Post-Dialysis 64 BPM Standing Heart Rate Post-Ruba lysis 62 BPM Temperature Post-Dialysis 98 degF September 01, 2022 In-Center Hemodialysis Treatment 2447-89-07R07:35:00.000Z 9710-57-39K75:08:16.000Z BP Sitting (Pre-Dialysis) 180/63 mmHg BP Sitting (Post-Dialysis) 153/90 mmHg Concurrent Access: falseCentral Venous Catheter (CVC) Chest (Right) ArterialAV Fistula Upper Arm (Left) Venous Sitting Heart Rate Pre-Dialysis 76 BPM Sitting H eart Rate Post-Dialysis 70 BPM Temperature Pre-Dialysis 97.6 degF Temperature Post -Dialysis 98.1 degF August 29, 2022 In-Center Hemodialysis Treatment 4852-43-49Q24:33:00.000Z 0955-47-12E30:15:18.000Z BP Sitting (Pre-Dialysis) 152/55 mmHg BP Sitting (Post-Dialysis) 141/47 mmHg Concurrent Access: falseCentral Venous Catheter (CVC) Chest (Right) ArterialAV Fistula Upper Arm (Left) Venous Sitting Heart Rate Pre-Dialysis 58 BPM Sitting H eart Rate Post-Dialysis 55 BPM Temperature Pre-Dialysis 97.4 degF Temperature Post -Dialysis 97.9 degF August 26, 2022 In-Center Hemodialysis Treatment 0958-65-74J09:41:00.000Z 4195-75-38Y58:12:23.000Z BP Sitting (Pre-Dialysis) 155/62 mmHg BP Sitting (Post-Dialysis) 147/55 mmHg Concurrent Access: falseCentral Venous Catheter (CVC) Chest (Right) ArterialAV Fistula Upper Arm (Left) Venous Sitting Heart Rate Pre-Dialysis 58 BPM BP Standing (Post-Dialysis) 135/65 mmHg Temperature Pre-Dialysis 97.2 degF Sitting Heart Ra te Post-Dialysis 57 BPM Standing Heart Rate Post-Ruba lysis 60 BPM Temperature Post-Dialysis 97 .2 degF August 24, 2022 In-Center Hemodialysis Treatment 2698-77-04J23:39:00.000Z 8114-37-66R38:12:23.000Z BP Sitting (Pre-Dialysis) 139/71 mmHg BP Sitting (Post-Dialysis) 144/66 mmHg Concurrent Access: falseCentral Venous Catheter (CVC) Chest (Right) ArterialAV Fistula Upper Arm (Left) Venous Sitting Heart Rate Pre-Dialysis 66 BPM BP Standing (Post-Dialysis) 141/59 mmHg Temperature Pre-Dialysis 97.9 degF Sitting Heart Ra te Post-Dialysis 56 BPM Standing Heart Rate Post-Ruba lysis 57 BPM Temperature Post-Dialysis 97 .9 degF August 22, 2022 In-Center Hemodialysis Treatment 1980-10-28B19:25:00.000Z 1742-97-30I48:02:16.000Z BP Sitting (Pre-Dialysis) 125/34 mmHg BP Sitting (Post-Dialysis) 150/83 mmHg Concurrent Access: falseCentral Venous Catheter (CVC) Chest (Right) ArterialAV Fistula Upper Arm (Left) Venous Sitting Heart Rate Pre-Dialysis 52 BPM Sitting H eart Rate Post-Dialysis 57 BPM Temperature Pre-Dialysis 97.9 degF Temperature Post -Dialysis 97.7 degF August 19, 2022 In-Center Hemodialysis Treatment 0303-25-61E09:56:00.000Z 0786-97-32T60:31:09.000Z BP Sitting (Pre-Dialysis) 146/67 mmHg BP Sitting (Post-Dialysis) 159/64 mmHg Concurrent Access: falseCentral Venous Catheter (CVC) Chest (Right) ArterialAV Fistula Upper Arm (Left) Venous Sitting Heart Rate Pre-Dialysis 66 BPM Sitting H eart Rate Post-Dialysis 57 BPM Temperature Pre-Dialysis 97.6 degF Temperature Post -Dialysis 97.8 degF August 17, 2022 In-Center Hemodialysis Treatment [id number]:05:00.000Z 7612-36-01X28:39:01.000Z BP Sitting (Pre-Dialysis) 162/73 mmHg BP Sitting (Post-Dialysis) 155/59 mmHg Concurrent Access: falseCentral Venous Catheter (CVC) Chest (Right) ArterialAV Fistula Upper Arm (Left) Venous Sitting Heart Rate Pre-Dialysis 64 BPM Sitting H eart Rate Post-Dialysis 61 BPM Temperature Pre-Dialysis 97.8 degF Temperature Post -Dialysis 97.8 degF August 15, 2022 In-Center Hemodialysis Treatment 3211-77-10Y24:36:00.000Z 7945-12-46G07:06:08.000Z BP Sitting (Pre-Dialysis) 156/52 mmHg BP Sitting (Post-Dialysis) 142/56 mmHg Concurrent Access: falseCentral Venous Catheter (CVC) Chest (Right) ArterialAV Fistula Upper Arm (Left) Venous Sitting Heart Rate Pre-Dialysis 71 BPM Sitting H eart Rate Post-Dialysis 61 BPM Temperature Pre-Dialysis 98.1 degF Temperature Post -Dialysis 97.6 degF August 12, 2022 In-Center Hemodialysis Treatment 8142-60-69W22:44:00.000Z 0321-32-32L90:14:08.000Z BP Sitting (Pre-Dialysis) 160/56 mmHg BP Sitting (Post-Dialysis) 151/52 mmHg Concurrent Access: falseCentral Venous Catheter (CVC) Chest (Right) ArterialAV Fistula Upper Arm (Left) Venous Sitting Heart Rate Pre-Dialysis 68 BPM Sitting H eart Rate Post-Dialysis 65 BPM Temperature Pre-Dialysis 98 degF Temperature Post -Dialysis 97.6 degF August 10, 2022 In-Center Hemodialysis Treatment [id number]:56:00.000Z 1263-64-60K68:28:50.000Z BP Sitting (Pre-Dialysis) 175/69 mmHg BP Sitting (Post-Dialysis) 160/59 mmHg Concurrent Access: falseCentral Venous Catheter (CVC) Chest (Right) ArterialAV Fistula Upper Arm (Left) Venous Sitting Heart Rate Pre-Dialysis 55 BPM Sitting H eart Rate Post-Dialysis 57 BPM Temperature Pre-Dialysis 97.6 degF Temperature Post -Dialysis 98.1 degF August 08, 2022 In-Center Hemodialysis Treatment 7922-57-23G30:58:00.000Z 0795-65-99H90:30:39.000Z BP Sitting (Pre-Dialysis) 162/60 mmHg BP Sitting (Post-Dialysis) 163/62 mmHg Concurrent Access: falseCentral Venous Catheter (CVC) Chest (Right) ArterialAV Fistula Upper Arm (Left) Venous Sitting Heart Rate Pre-Dialysis 68 BPM Sitting H eart Rate Post-Dialysis 59 BPM Temperature Pre-Dialysis 97.4 degF Temperature Post -Dialysis 98.2 degF August 05, 2022 In-Center Hemodialysis Treatment 1901-37-19M47:02:00.000Z 8259-20-57T89:33:31.000Z BP Sitting (Pre-Dialysis) 199/77 mmHg BP Sitting (Post-Dialysis) 169/59 mmHg Concurrent Access: falseCentral Venous Catheter (CVC) Chest (Right) Arterial Sitting Heart Rate Pre-Dialysis 71 BPM Sitting H eart Rate Post-Dialysis 66 BPM Temperature Pre-Dialysis 97.7 degF Temperature Post -Dialysis 98.5 degF August 03, 2022 In-Center Hemodialysis Treatment 4711-55-81P83:48:32.000Z 9662-09-63H87:18:32.000Z BP Sitting (Pre-Dialysis) 203/73 mmHg BP Sitting (Post-Dialysis) 184/75 mmHg Concurrent Access: falseCentral Venous Catheter (CVC) Chest (Right) Arterial Sitting Heart Rate Pre-Dialysis 75 BPM Sitting H eart Rate Post-Dialysis 62 BPM Temperature Pre-Dialysis 97.8 degF Temperature Post -Dialysis 97.4 degF August 01, 2022 In-Center Hemodialysis Treatment 0917-64-16I20:09:00.000Z 9883-89-02U76:45:33.000Z BP Sitting (Pre-Dialysis) 200/85 mmHg BP Sitting (Post-Dialysis) 198/88 mmHg Concurrent Access: falseCentral Venous Catheter (CVC) Chest (Right) Arterial Sitting Heart Rate Pre-Dialysis 72 BPM Sitting H eart Rate Post-Dialysis 61 BPM Temperature Pre-Dialysis 97.6 degF Temperature Post -Dialysis 97.8 degF July 29, 2022 In-Center Hemodialysis Treatment 1494-55-91C30:49:00.000Z 9506-18-80P59:20:43.000Z BP Sitting (Pre-Dialysis) 191/85 mmHg BP Sitting (Post-Dialysis) 162/67 mmHg Concurrent Access: falseCentral Venous Catheter (CVC) Chest (Right) Arterial Sitting Heart Rate Pre-Dialysis 65 BPM Sitting H eart Rate Post-Dialysis 60 BPM Temperature Pre-Dialysis 97.6 degF Temperature Post -Dialysis 97.5 degF July 27, 2022 In-Center Hemodialysis Treatment 9804-70-62F63:58:00.000Z 7769-10-11L11:27:43.000Z BP Sitting (Pre-Dialysis) 181/85 mmHg BP Sitting (Post-Dialysis) 147/85 mmHg Concurrent Access: falseCentral Venous Catheter (CVC) Chest (Right) Arterial Sitting Heart Rate Pre-Dialysis 73 BPM Sitting H eart Rate Post-Dialysis 70 BPM Temperature Pre-Dialysis 97.8 degF Temperature Post -Dialysis 97 degF July 25, 2022 In-Center Hemodialysis Treatment 2713-59-58N10:16:00.000Z 3378-37-42Z61:44:43.000Z BP Sitting (Pre-Dialysis) 204/94 mmHg BP Sitting (Post-Dialysis) 188/83 mmHg Concurrent Access: falseCentral Venous Catheter (CVC) Chest (Right) Arterial Sitting Heart Rate Pre-Dialysis 72 BPM Sitting H eart Rate Post-Dialysis 66 BPM Temperature Pre-Dialysis 97.6 degF Temperature Post -Dialysis 97.6 degF July 22, 2022 In-Center Hemodialysis Treatment 2144-56-28W83:05:00.000Z 7898-48-44C46:39:27.000Z BP Sitting (Pre-Dialysis) 169/75 mmHg BP Sitting (Post-Dialysis) 180/72 mmHg Concurrent Access: falseCentral Venous Catheter (CVC) Chest (Right) Arterial Sitting Heart Rate Pre-Dialysis 64 BPM Sitting H eart Rate Post-Dialysis 57 BPM Temperature Pre-Dialysis 97.8 degF Temperature Post -Dialysis 97.9 degF July 20, 2022 In-Center Hemodialysis Treatment 4616-79-85K96:19:00.000Z 0940-71-15H62:57:00.000Z BP Sitting (Pre-Dialysis) 151/65 mmHg BP Sitting (Post-Dialysis) 161/72 mmHg Concurrent Access: falseCentral Venous Catheter (CVC) Chest (Right) Arterial Sitting Heart Rate Pre-Dialysis 67 BPM Sitting H eart Rate Post-Dialysis 59 BPM Temperature Pre-Dialysis 97.8 degF Temperature Post -Dialysis 97.4 degF July 18, 2022 In-Center Hemodialysis Treatment 1801-39-21R35:41:00.000Z 8018-73-81L01:32:32.000Z BP Sitting (Pre-Dialysis) 129/45 mmHg BP Sitting (Post-Dialysis) 144/57 mmHg Concurrent Access: falseCentral Venous Catheter (CVC) Chest (Right) Arterial Sitting Heart Rate Pre-Dialysis 71 BPM Sitting H eart Rate Post-Dialysis 60 BPM Temperature Pre-Dialysis 97.2 degF Temperature Post -Dialysis 97.6 degF July 15, 2022 In-Center Hemodialysis Treatment 7393-11-89S06:54:00.000Z 8239-45-91G59:26:31.000Z BP Sitting (Pre-Dialysis) 177/75 mmHg BP Sitting (Post-Dialysis) 147/64 mmHg Concurrent Access: falseCentral Venous Catheter (CVC) Chest (Right) Arterial Sitting Heart Rate Pre-Dialysis 74 BPM Sitting H eart Rate Post-Dialysis 59 BPM Temperature Pre-Dialysis 97.3 degF Temperature Post -Dialysis 97.6 degF July 13, 2022 In-Center Hemodialysis Treatment 0330-09-91V35:57:00.000Z 3703-60-49A00:30:31.000Z BP Sitting (Pre-Dialysis) 145/59 mmHg BP Sitting (Post-Dialysis) 154/54 mmHg Concurrent Access: falseCentral Venous Catheter (CVC) Chest (Right) Arterial Sitting Heart Rate Pre-Dialysis 73 BPM Sitting H eart Rate Post-Dialysis 66 BPM Temperature Pre-Dialysis 97.3 degF Temperature Post -Dialysis 97.6 degF July 11, 2022 In-Center Hemodialysis Treatment 2703-60-54R69:48:00.000Z 4140-27-03C55:12:21.000Z BP Sitting (Pre-Dialysis) 175/65 mmHg BP Sitting (Post-Dialysis) 177/76 mmHg Concurrent Access: falseCentral Venous Catheter (CVC) Chest (Right) Arterial Sitting Heart Rate Pre-Dialysis 64 BPM Sitting H eart Rate Post-Dialysis 66 BPM Temperature Pre-Dialysis 97.5 degF Temperature Post -Dialysis 97.6 degF July 08, 2022 In-Center Hemodialysis Treatment 8465-24-62O27:44:00.000Z 1468-67-67T52:15:30.000Z BP Sitting (Pre-Dialysis) 179/70 mmHg BP Sitting (Post-Dialysis) 175/69 mmHg Concurrent Access: falseCentral Venous Catheter (CVC) Chest (Right) Arterial Sitting Heart Rate Pre-Dialysis 60 BPM Sitting H eart Rate Post-Dialysis 62 BPM Temperature Pre-Dialysis 97.6 degF Temperature Post -Dialysis 97.7 degF July 06, 2022 In-Center Hemodialysis Treatment 8996-20-93E48:45:00.000Z 1388-76-46F43:17:52.000Z BP Sitting (Pre-Dialysis) 199/86 mmHg BP Sitting (Post-Dialysis) 174/74 mmHg Concurrent Access: falseCentral Venous Catheter (CVC) Chest (Right) Arterial Sitting Heart Rate Pre-Dialysis 77 BPM Sitting H eart Rate Post-Dialysis 78 BPM Temperature Pre-Dialysis 97 degF Temperature Post -Dialysis 97 degF July 04, 2022 In-Center Hemodialysis Treatment 8371-34-10W09:51:00.000Z 7731-51-38C24:26:30.000Z BP Sitting (Pre-Dialysis) 196/78 mmHg BP Sitting (Post-Dialysis) 180/77 mmHg Concurrent Access: falseCentral Venous Catheter (CVC) Chest (Right) Arterial Sitting Heart Rate Pre-Dialysis 76 BPM Sitting H eart Rate Post-Dialysis 57 BPM Temperature Pre-Dialysis 97.9 degF Temperature Post -Dialysis 97.6 degF July 01, 2022 In-Center Hemodialysis Treatment 1030-72-83F55:45:00.000Z 8644-53-87C56:16:46.000Z BP Sitting (Pre-Dialysis) 181/79 mmHg BP Sitting (Post-Dialysis) 167/72 mmHg Concurrent Access: falseCentral Venous Catheter (CVC) Chest (Right) Arterial Sitting Heart Rate Pre-Dialysis 63 BPM Sitting H eart Rate Post-Dialysis 60 BPM Temperature Pre-Dialysis 97.4 degF Temperature Post -Dialysis 97.6 degF June 29, 2022 In-Center Hemodialysis Treatment 0803-17-22N43:54:00.000Z 7225-12-86F18:31:13.000Z BP Sitting (Pre-Dialysis) 189/77 mmHg BP Sitting (Post-Dialysis) 160/50 mmHg Concurrent Access: falseCentral Venous Catheter (CVC) Chest (Right) Arterial Sitting Heart Rate Pre-Dialysis 85 BPM Sitting H eart Rate Post-Dialysis 63 BPM Temperature Pre-Dialysis 97.5 degF Temperature Post -Dialysis 97.7 degF June 27, 2022 In-Center Hemodialysis Treatment [id number]:53:00.000Z 8777-25-72F43:23:11.000Z BP Sitting (Pre-Dialysis) 164/68 mmHg BP Sitting (Post-Dialysis) 180/81 mmHg Concurrent Access: falseCentral Venous Catheter (CVC) Chest (Right) Arterial Sitting Heart Rate Pre-Dialysis 78 BPM Sitting H eart Rate Post-Dialysis 76 BPM Temperature Pre-Dialysis 97.6 degF Temperature Post -Dialysis 97.6 degF June 24, 2022 In-Center Hemodialysis Treatment [id number]:06:00.000Z [id number]:40:43.000Z BP Sitting (Pre-Dialysis) 155/55 mmHg BP Sitting (Post-Dialysis) 176/69 mmHg Concurrent Access: falseCentral Venous Catheter (CVC) Chest (Right) Arterial Sitting Heart Rate Pre-Dialysis 66 BPM Sitting H eart Rate Post-Dialysis 67 BPM Temperature Pre-Dialysis 97.6 degF Temperature Post -Dialysis 97.5 degF June 22, 2022 In-Center Hemodialysis Treatment [id number]:48:00.000Z [id number]:17:43.000Z BP Sitting (Pre-Dialysis) 181/77 mmHg BP Sitting (Post-Dialysis) 175/74 mmHg Concurrent Access: falseCentral Venous Catheter (CVC) Chest (Right) Arterial Sitting Heart Rate Pre-Dialysis 77 BPM Sitting H eart Rate Post-Dialysis 63 BPM Temperature Pre-Dialysis 97.3 degF Temperature Post -Dialysis 97.4 degF June 20, 2022 In-Center Hemodialysis Treatment [id number]:10:00.000Z [id number]:45:01.000Z BP Sitting (Pre-Dialysis) 166/46 mmHg BP Sitting (Post-Dialysis) 171/64 mmHg Concurrent Access: falseCentral Venous Catheter (CVC) Chest (Right) Arterial Sitting Heart Rate Pre-Dialysis 66 BPM Sitting H eart Rate Post-Dialysis 60 BPM Temperature Pre-Dialysis 97.3 degF Temperature Post -Dialysis 97.6 degF June 17, 2022 In-Center Hemodialysis Treatment [id number]:49:00.000Z [id number]:23:29.000Z BP Sitting (Pre-Dialysis) 196/85 mmHg BP Sitting (Post-Dialysis) 182/69 mmHg Concurrent Access: falseCentral Venous Catheter (CVC) Chest (Right) Arterial BP Standing (Pre-Dialysis) 193/83 mmHg Sitti ng Heart Rate Post-Dialysis 69 BPM Sitting Heart Rate Pre-Dialysis 64 BPM Temperatu re Post-Dialysis 97.8 degF Standing Heart Rate Pre-Dialysis 69 BPM Temperature Pre-Dialysis 97.4 degF June 15, 2022 In-Center Hemodialysis Treatment [id number]:53:28.000Z [id number]:22:29.000Z BP Sitting (Pre-Dialysis) 158/49 mmHg BP Sitting (Post-Dialysis) 178/73 mmHg Concurrent Access: falseCentral Venous Catheter (CVC) Chest (Right) Arterial Sitting Heart Rate Pre-Dialysis 70 BPM Sitting H eart Rate Post-Dialysis 65 BPM Temperature Pre-Dialysis 97.3 degF Temperature Post -Dialysis 97.8 degF June 13, 2022 In-Center Hemodialysis Treatment [id number]:01:00.000Z [id number]:38:29.000Z BP Sitting (Pre-Dialysis) 174/63 mmHg BP Sitting (Post-Dialysis) 169/68 mmHg Concurrent Access: falseCentral Venous Catheter (CVC) Chest (Right) Arterial Sitting Heart Rate Pre-Dialysis 62 BPM Sitting H eart Rate Post-Dialysis 56 BPM Temperature Pre-Dialysis 97.5 degF Temperature Post -Dialysis 97.7 degF June 10, 2022 In-Center Hemodialysis Treatment [id number]:17:00.000Z [id number]:49:00.000Z BP Sitting (Pre-Dialysis) 165/67 mmHg BP Sitting (Post-Dialysis) 163/60 mmHg Concurrent Access: falseCentral Venous Catheter (CVC) Chest (Right) Arterial Sitting Heart Rate Pre-Dialysis 68 BPM Sitting H eart Rate Post-Dialysis 63 BPM Temperature Pre-Dialysis 97.5 degF Temperature Post -Dialysis 97.9 degF June 08, 2022 In-Center Hemodialysis Treatment [id number]:10:00.000Z [id number]:42:55.000Z BP Sitting (Pre-Dialysis) 171/67 mmHg BP Sitting (Post-Dialysis) 178/69 mmHg Concurrent Access: falseCentral Venous Catheter (CVC) Chest (Right) Arterial Sitting Heart Rate Pre-Dialysis 64 BPM Sitting H eart Rate Post-Dialysis 66 BPM Temperature Pre-Dialysis 97.5 degF Temperature Post -Dialysis 97 degF June 06, 2022 In-Center Hemodialysis Treatment [id number]:16:00.000Z [id number]:49:28.000Z BP Sitting (Pre-Dialysis) 185/74 mmHg BP Sitting (Post-Dialysis) 133/61 mmHg Concurrent Access: falseCentral Venous Catheter (CVC) Chest (Right) Arterial Sitting Heart Rate Pre-Dialysis 69 BPM Sitting H eart Rate Post-Dialysis 61 BPM Temperature Pre-Dialysis 97.3 degF Temperature Post -Dialysis 97.5 degF June 03, 2022 In-Center Hemodialysis Treatment [id number]:08:00.000Z [id number]:30:19.000Z BP Sitting (Pre-Dialysis) 171/92 mmHg BP Sitting (Post-Dialysis) 152/67 mmHg Concurrent Access: falseCentral Venous Catheter (CVC) Chest (Right) Arterial Sitting Heart Rate Pre-Dialysis 116 BPM Sitting H eart Rate Post-Dialysis 65 BPM Temperature Pre-Dialysis 97 degF Temperature Post -Dialysis 97.8 degF June 01, 2022 In-Center Hemodialysis Treatment [id number]:27:00.000Z [id number]:53:16.000Z BP Sitting (Pre-Dialysis) 171/70 mmHg BP Sitting (Post-Dialysis) 137/57 mmHg Concurrent Access: falseCentral Venous Catheter (CVC) Chest (Right) Arterial Sitting Heart Rate Pre-Dialysis 70 BPM Sitting H eart Rate Post-Dialysis 71 BPM Temperature Pre-Dialysis 97.5 degF Temperature Post -Dialysis 97.8 degF May 30, 2022 In-Center Hemodialysis Treatment [id number]:12:19.000Z [id number]:44:19.000Z BP Sitting (Pre-Dialysis) 192/75 mmHg BP Sitting (Post-Dialysis) 117/82 mmHg Concurrent Access: falseCentral Venous Catheter (CVC) Chest (Right) Arterial Sitting Heart Rate Pre-Dialysis 63 BPM Sitting H eart Rate Post-Dialysis 67 BPM Temperature Pre-Dialysis 97.9 degF Temperature Post -Dialysis 97 degF DIALYSIS ORDER Dialysis Procedure Orders Type of Dialysis Procedure Order Order Date/Time Observations In-Center Hemodialysis Treatment 2024 Target Weight 87 kg Dialysate Flow Rate 500 mL/min Blood Flow Rate 450 mL/min Treatment Time 210 min(total) Max UF Rate 13 mL/kg/hr Base Sodium Dialysate Base Sodium 138 mE q/L dialysate_temp 36.5 C BiCarb Dialysate BiCarbonate 37 meq/L Access Concurrent No Arterial Access AV Fistula (Upper Ar m (Left)) Venous Access AV Fistula (Upper Ar m (Left)) Arterial Needle Display NIPRO, TULIP, 15 G x 1, SHARP , TWIN Venous Needle NIPRO, TULIP, 15G x 1, SHARP , TWIN Dialyzer Nipro Elisio 15H 126 4 [email or web address] Dialysate Bath Potassium Potassium 2 mEq /L Dialysate Bath Calcium Calcium 2.5 mEq/L Results Adequacy Description Draw Date Result/Unit Status Ref Range Result Comments DIALYZER FLOW-QD 2025-01-27 18:43:52 483 mL/min F BSA BEVERLY 2025-01-27 18:43:52 1.9 sq m F WEIGHT - PRE DAY 1 2025-01-27 18:43:52 92.4 kg F HEIGHT IN INCHES 2025-01-27 18:43:52 64 Inches F VT (KT/V TX VOL) 2025-01-27 18:43:52 43.1 L F Residual kt/v 2025-01-27 18:43:52 F Unable to calculate: Post BUN lab result is unknown nPCR 2025-01-27 18:43:52 0.93 G/KG/D F eKt/V 2025-01-27 18:43:52 1.17 F stdKT/V Total 2025-01-27 18:43:52 N/A F BLOOD FLOW-QWB 2025-01-27 18:43:52 432 F URR% 2025-01-27 18:43:52 67 % F Dialyzer STEPHENIE 2025-01-27 18:43:52 1264 Calc F LENGTH OF DIALYSIS 2025-01-27 18:43:52 212 min F PATIENT AGE 2025-01-27 18:43:52 74 Years F WEIGHT (KG) 2025-01-27 18:43:52 84.5 kg F WEIGHT - POST DAY 1 2025-01-27 18:43:52 87.1 kg F PRESCRIBED DAYS/WEEK 2025-01-27 18:43:52 3 Day/Wk F VM (KT/V MEAN VOL) 2025-01-27 18:43:52 41.2 F KT/V PRESCRIBED 2025-01-27 18:43:52 2.02 F Total Kt/V 2025-01-27 18:43:52 1.37 F AMPUTATE FACTOR 2025-01-27 18:43:52 0 F TBW (Santos) 2025-01-27 18:43:52 36.76 Liters F spKt/V 2025-01-27 18:43:52 1.37 F Std Renal KT/V 2025-01-27 18:43:52 N/A F TOTAL HOURS/WEEK DIALYSIS 2025-01-27 18:43:52 8 hrs F stdKt/V (DIAL) 2025-01-27 18:43:52 N/A F CURRENT KRU 2025-01-27 18:43:52 F Unable to calculate: Post BUN lab result is unknown Urea nitrogen [Mass/volume] in Serum or Plasma --post dialysis 2025-01-27 18:42:24 20 mg/dL F 9.0-23.0 Urea nitrogen [Mass/volume] in Serum or Plasma 2025-01-27 14:53:32 60 mg/dL F 9.0-23.0 URR% 2025-01-21 00:41:32 58 % F DIALYZER FLOW-QD 2025-01-21 00:41:32 500 mL/min F Dialyzer STEPHENIE 2025-01-21 00:41:32 1264 Calc F Residual kt/v 2025-01-21 00:41:32 F LENGTH OF DIALYSIS 2025-01-21 00:41:32 192 min F WEIGHT - POST DAY 1 2025-01-21 00:41:32 88.7 kg F HEIGHT IN INCHES 2025-01-21 00:41:32 64 Inches F KT/V PRESCRIBED 2025-01-21 00:41:32 1.83 F Total Kt/V 2025-01-21 00:41:32 1.01 F eKt/V 2025-01-21 00:41:32 0.86 F AMPUTATE FACTOR 2025-01-21 00:41:32 0 F stdKT/V Total 2025-01-21 00:41:32 N/A F TOTAL HOURS/WEEK DIALYSIS 2025-01-21 00:41:32 9 hrs F PATIENT AGE 2025-01-21 00:41:32 74 Years F BSA BEVERLY 2025-01-21 00:41:32 1.9 sq m F WEIGHT - PRE DAY 1 2025-01-21 00:41:32 91.5 kg F PRESCRIBED DAYS/WEEK 2025-01-21 00:41:32 3 Day/Wk F WEIGHT (KG) 2025-01-21 00:41:32 84.5 kg F VT (KT/V TX VOL) 2025-01-21 00:41:32 51.1 L F VM (KT/V MEAN VOL) 2025-01-21 00:41:32 40.6 F nPCR 2025-01-21 00:41:32 0.76 G/KG/D F TBW (Santos) 2025-01-21 00:41:32 37.15 Liters F stdKt/V (DIAL) 2025-01-21 00:41:32 N/A F spKt/V 2025-01-21 00:41:32 1.01 F Std Renal KT/V 2025-01-21 00:41:32 N/A F BLOOD FLOW-QWB 2025-01-21 00:41:32 389 F CURRENT KRU 2025-01-21 00:41:32 F Urea nitrogen [Mass/volume] in Serum or Plasma 2025-01-21 00:17:16 55 mg/dL F 9.0-23.0 Urea nitrogen [Mass/volume] in Serum or Plasma --post dialysis 2025-01-20 23:08:12 23 mg/dL F 9.0-23.0 LENGTH OF DIALYSIS 2025-01-16 18:03:25 147 min F WEIGHT (KG) 2025-01-16 18:03:25 84.5 kg F VT (KT/V TX VOL) 2025-01-16 18:03:25 40.2 L F PATIENT AGE 2025-01-16 18:03:25 74 Years F VM (KT/V MEAN VOL) 2025-01-16 18:03:25 40.6 F AMPUTATE FACTOR 2025-01-16 18:03:25 0 F TBW (Santos) 2025-01-16 18:03:25 37.6 Liters F spKt/V 2025-01-16 18:03:25 0.99 F eKt/V 2025-01-16 18:03:25 0.81 F stdKt/V (DIAL) 2025-01-16 18:03:25 N/A F stdKT/V Total 2025-01-16 18:03:25 N/A F Std Renal KT/V 2025-01-16 18:03:25 N/A F BLOOD FLOW-QWB 2025-01-16 18:03:25 400 F URR% 2025-01-16 18:03:25 59 % F DIALYZER FLOW-QD 2025-01-16 18:03:25 500 mL/min F BSA B[place] 2025-01-16 18:03:25 1.9 sq m F Dialyzer STEPHENIE 2025-01-16 18:03:25 1264 Calc F WEIGHT - PRE DAY 1 2025-01-16 18:03:25 91.7 kg F WEIGHT - POST DAY 1 2025-01-16 18:03:25 90.5 kg F HEIGHT IN INCHES 2025-01-16 18:03:25 64 Inches F PRESCRIBED DAYS/WEEK 2025-01-16 18:03:25 3 Day/Wk F Residual kt/v 2025-01-16 18:03:25 F KT/V PRESCRIBED 2025-01-16 18:03:25 1.4 F Total Kt/V 2025-01-16 18:03:25 0.99 F nPCR 2025-01-16 18:03:25 0.72 G/KG/D F TOTAL HOURS/WEEK DIALYSIS 2025-01-16 18:03:25 9 hrs F CURRENT KRU 2025-01-16 18:03:25 F Urea nitrogen [Mass/volume] in Serum or Plasma --post dialysis 2025-01-16 04:28:24 18 mg/dL F 9.0-23.0 Creatinine [Mass/volume] in Serum or Plasma 2025-01-15 19:04:28 5.14 mg/dL F 0.55-1.02 Urea nitrogen [Mass/volume] in Serum or Plasma 2025-01-15 19:04:28 44 mg/dL F 9.0-23.0 URR% 2025-01-14 08:08:23 see comments F 65.0-100.0 Unable to Calculate. Urea nitrogen [Mass/volume] in Serum or Plasma --post dialysis 2025-01-14 07:06:23 14 mg/dL F 9.0-23.0 Urea nitrogen [Mass/volume] in Serum or Plasma 2025-01-13 17:43:26 F Recollect - Unsp un specimen PATIENT AGE 2025-01-12 19:17:29 74 Years F HEIGHT IN INCHES 2025-01-12 19:17:29 64 Inches F WEIGHT (KG) 2025-01-12 19:17:29 84.5 kg F AMPUTATE FACTOR 2025-01-12 19:17:29 0 F URR% 2025-01-09 03:46:47 64 % F Dialyzer STEPHENIE 2025-01-09 03:46:47 1264 Calc F LENGTH OF DIALYSIS 2025-01-09 03:46:47 179 min F WEIGHT (KG) 2025-01-09 03:46:47 84.5 kg F WEIGHT - POST DAY 1 2025-01-09 03:46:47 85.5 kg F BSA B[place] 2025-01-09 03:46:47 1.9 sq m F KT/V PRESCRIBED 2025-01-09 03:46:47 1.7 F AMPUTATE FACTOR 2025-01-09 03:46:47 0 F eKt/V 2025-01-09 03:46:47 0.99 F TBW (Santos) 2025-01-09 03:46:47 36.36 Liters F BLOOD FLOW-QWB 2025-01-09 03:46:47 450 F CURRENT KRU 2025-01-09 03:46:47 F Unable to calculate: Post BUN lab result is unknown DIALYZER FLOW-QD 2025-01-09 03:46:47 500 mL/min F PATIENT AGE 2025-01-09 03:46:47 74 Years F WEIGHT - PRE DAY 1 2025-01-09 03:46:47 87.5 kg F HEIGHT IN INCHES 2025-01-09 03:46:47 64 Inches F PRESCRIBED DAYS/WEEK 2025-01-09 03:46:47 3 Day/Wk F VT (KT/V TX VOL) 2025-01-09 03:46:47 43.2 L F VM (KT/V MEAN VOL) 2025-01-09 03:46:47 40.7 F Total Kt/V 2025-01-09 03:46:47 1.18 F Residual kt/v 2025-01-09 03:46:47 F Unable to calculate: Post BUN lab result is unknown nPCR 2025-01-09 03:46:47 0.56 G/KG/D F spKt/V 2025-01-09 03:46:47 1.18 F stdKt/V (DIAL) 2025-01-09 03:46:47 N/A F stdKT/V Total 2025-01-09 03:46:47 N/A F Std Renal KT/V 2025-01-09 03:46:47 N/A F TOTAL HOURS/WEEK DIALYSIS 2025-01-09 03:46:47 10 hrs F Urea nitrogen [Mass/volume] in Serum or Plasma --post dialysis 2025-01-09 03:45:20 10 mg/dL F 9.0-23.0 Urea nitrogen [Mass/volume] in Serum or Plasma 2025-01-09 01:02:30 28 mg/dL F 9.0-23.0 DIALYZER FLOW-QD 2024-12-20 23:53:45 500 mL/min F LENGTH OF DIALYSIS 2024-12-20 23:53:45 214 min F PATIENT AGE 2024-12-20 23:53:45 73 Years F WEIGHT - PRE DAY 1 2024-12-20 23:53:45 86.8 kg F HEIGHT IN INCHES 2024-12-20 23:53:45 64 Inches F WEIGHT - POST DAY 1 2024-12-20 23:53:45 84.5 kg F PRESCRIBED DAYS/WEEK 2024-12-20 23:53:45 3 Day/Wk F VM (KT/V MEAN VOL) 2024-12-20 23:53:45 39.9 F VT (KT/V TX VOL) 2024-12-20 23:53:45 38.9 L F eKt/V 2024-12-20 23:53:45 1.33 F Std Renal KT/V 2024-12-20 23:53:45 N/A F stdKT/V Total 2024-12-20 23:53:45 N/A F BLOOD FLOW-QWB 2024-12-20 23:53:45 450 F URR% 2024-12-20 23:53:45 74 % F Dialyzer STEPHENIE 2024-12-20 23:53:45 1264 Calc F BSA BEVER[place] 2024-12-20 23:53:45 1.9 sq m F WEIGHT (KG) 2024-12-20 23:53:45 84.5 kg F Residual kt/v 2024-12-20 23:53:45 F KT/V PRESCRIBED 2024-12-20 23:53:45 2.04 F Total Kt/V 2024-12-20 23:53:45 1.56 F TBW (Santos) 2024-12-20 23:53:45 36.12 Liters F AMPUTATE FACTOR 2024-12-20 23:53:45 0 F nPCR 2024-12-20 23:53:45 0.63 G/KG/D F spKt/V 2024-12-20 23:53:45 1.56 F stdKt/V (DIAL) 2024-12-20 23:53:45 N/A F TOTAL HOURS/WEEK DIALYSIS 2024-12-20 23:53:45 10 hrs F CURRENT KRU 2024-12-20 23:53:45 F Urea nitrogen [Mass/volume] in Serum or Plasma --post dialysis 2024-12-20 23:52:12 9 mg/dL F 9.0-23.0 Urea nitrogen [Mass/volume] in Serum or Plasma 2024-12-20 23:52:12 35 mg/dL F 9.0-23.0 URR% 2024-12-18 21:33:15 73 % F DIALYZER FLOW-QD 2024-12-18 21:33:15 500 mL/min F LENGTH OF DIALYSIS 2024-12-18 21:33:15 201 min F PATIENT AGE 2024-12-18 21:33:15 73 Years F WEIGHT - POST DAY 1 2024-12-18 21:33:15 84.7 kg F BSA BEVER[place] 2024-12-18 21:33:15 1.9 sq m F WEIGHT - PRE DAY 1 2024-12-18 21:33:15 86.7 kg F PRESCRIBED DAYS/WEEK 2024-12-18 21:33:15 3 Day/Wk F VT (KT/V TX VOL) 2024-12-18 21:33:15 38.7 L F Total Kt/V 2024-12-18 21:33:15 1.47 F KT/V PRESCRIBED 2024-12-18 21:33:15 1.91 F AMPUTATE FACTOR 2024-12-18 21:33:15 0 F eKt/V 2024-12-18 21:33:15 1.24 F stdKT/V Total 2024-12-18 21:33:15 N/A F Std Renal KT/V 2024-12-18 21:33:15 N/A F BLOOD FLOW-QWB 2024-12-18 21:33:15 450 F CURRENT KRU 2024-12-18 21:33:15 F Dialyzer STEPHENIE 2024-12-18 21:33:15 1264 Calc F HEIGHT IN INCHES 2024-12-18 21:33:15 64 Inches F WEIGHT (KG) 2024-12-18 21:33:15 84.5 kg F VM (KT/V MEAN VOL) 2024-12-18 21:33:15 40.3 F Residual kt/v 2024-12-18 21:33:15 F TBW (Santos) 2024-12-18 21:33:15 36.17 Liters F nPCR 2024-12-18 21:33:15 0.71 G/KG/D F spKt/V 2024-12-18 21:33:15 1.47 F stdKt/V (DIAL) 2024-12-18 21:33:15 N/A F TOTAL HOURS/WEEK DIALYSIS 2024-12-18 21:33:15 7 hrs F Urea nitrogen [Mass/volume] in Serum or Plasma 2024-12-18 21:31:19 40 mg/dL F 9.0-23.0 Creatinine [Mass/volume] in Serum or Plasma 2024-12-18 21:31:19 5.51 mg/dL F 0.55-1.02 Urea nitrogen [Mass/volume] in Serum or Plasma --post dialysis 2024-12-18 19:32:24 11 mg/dL F 9.0-23.0 DIALYZER FLOW-QD 2024-12-17 05:24:05 500 mL/min F BSA BEVER[place] 2024-12-17 05:24:05 1.9 sq m F WEIGHT - POST DAY 1 2024-12-17 05:24:05 85.9 kg F WEIGHT (KG) 2024-12-17 05:24:05 84.5 kg F VM (KT/V MEAN VOL) 2024-12-17 05:24:05 40.9 F Residual kt/v 2024-12-17 05:24:05 F Total Kt/V 2024-12-17 05:24:05 1.08 F nPCR 2024-12-17 05:24:05 0.48 G/KG/D F TBW (Santos) 2024-12-17 05:24:05 36.46 Liters F spKt/V 2024-12-17 05:24:05 1.08 F eKt/V 2024-12-17 05:24:05 0.94 F Std Renal KT/V 2024-12-17 05:24:05 N/A F stdKT/V Total 2024-12-17 05:24:05 N/A F URR% 2024-12-17 05:24:05 62 % F Dialyzer STEPHENIE 2024-12-17 05:24:05 1264 Calc F PATIENT AGE 2024-12-17 05:24:05 73 Years F LENGTH OF DIALYSIS 2024-12-17 05:24:05 229 min F WEIGHT - PRE DAY 1 2024-12-17 05:24:05 88.4 kg F HEIGHT IN INCHES 2024-12-17 05:24:05 64 Inches F VT (KT/V TX VOL) 2024-12-17 05:24:05 60.1 L F KT/V PRESCRIBED 2024-12-17 05:24:05 2.18 F PRESCRIBED DAYS/WEEK 2024-12-17 05:24:05 3 Day/Wk F AMPUTATE FACTOR 2024-12-17 05:24:05 0 F stdKt/V (DIAL) 2024-12-17 05:24:05 N/A F TOTAL HOURS/WEEK DIALYSIS 2024-12-17 05:24:05 7 hrs F CURRENT KRU 2024-12-17 05:24:05 F BLOOD FLOW-QWB 2024-12-17 05:24:05 450 F Urea nitrogen [Mass/volume] in Serum or Plasma 2024-12-17 05:22:19 45 mg/dL F 9.0-23.0 Urea nitrogen [Mass/volume] in Serum or Plasma --post dialysis 2024-12-17 04:55:18 17 mg/dL F 9.0-23.0 Creatinine [Mass/volume] in Serum or Plasma 2024-11-20 13:44:24 4.45 mg/dL F 0.55-1.02 URR% Urea nitrogen [Mass/volume] in Serum or Plasma DIALYZER FLOW-QD LENGTH OF DIALYSIS PATIENT AGE VT (KT/V TX VOL) WEIGHT (KG) VM (KT/V MEAN VOL) Residual kt/v nPCR TOTAL HOURS/WEEK DIALYSIS stdKT/V Total BLOOD FLOW-QWB Dialyzer STEPHENIE BSA BEVERLY WEIGHT - POST DAY 1 WEIGHT - PRE DAY 1 HEIGHT IN INCHES PRESCRIBED DAYS/WEEK KT/V PRESCRIBED AMPUTATE FACTOR TBW (Santos) Total Kt/V spKt/V eKt/V stdKt/V (DIAL) Std Renal KT/V CURRENT KRU DIALYZER FLOW-QD Dialyzer STEPHENIE LENGTH OF DIALYSIS BSA BEVER[place] WEIGHT - POST DAY 1 PRESCRIBED DAYS/WEEK VT (KT/V TX VOL) KT/V PRESCRIBED Total Kt/V TBW (Santos) eKt/V stdKt/V (DIAL) Std Renal KT/V BLOOD FLOW-QWB WEIGHT - PRE DAY 1 CURRENT KRU VM (KT/V MEAN VOL) nPCR Residual kt/v spKt/V stdKT/V Total TOTAL HOURS/WEEK DIALYSIS Anemia Description Draw Date Result/Unit Status Ref Range Result Comments HCT CALC HGBX3 2025-01-29 19:08:07 27 % F 37.0-47.0 Hemoglobin [Mass/volume] in Blood 2025-01-29 19:07:12 9 g/dL F 12.0-16.0 IRON SATURATION 2025-01-16 14:24:43 17 % F 16.0-46.0 TIBC 2025-01-16 14:24:43 249 ug/dL F 250.0-425.0 HCT CALC HGBX3 2025-01-16 14:24:43 28.8 % F 37.0-47.0 Iron [Mass/volume] in Serum or Plasma 2025-01-16 07:30:07 43 ug/dL F 50.0-170.0 Iron binding capacity.unsaturated [Mass/volume] in Serum or Plasma 2025-01-16 07:29:54 206 ug/dL F 80.0-375.0 Hematocrit [Volume Fraction] of Blood by Automated count 2025-01-16 05:43:21 32.2 % F 37.0-47.0 Hemoglobin [Mass/volume] in Blood 2025-01-16 05:43:21 9.6 g/dL F 12.0-16.0 MCV [Entitic volume] by Automated count 2025-01-16 05:43:21 91.2 fL F 80.0-100.0 Erythrocyte distribution width [Ratio] by Automated count 2025-01-16 05:43:21 16.7 % F 11.0-15.0 Erythrocytes [#/volume] in Blood by Automated count 2025-01-16 05:43:21 3.53 x 10^6 cells/uL F 3.85-5.2 MCHC [Mass/volume] by Automated count 2025-01-16 05:43:21 29.7 g/dL F 29.6-35.3 Platelets [#/volume] in Blood by Automated count 2025-01-16 05:43:21 218 x 10^3 cells/uL F 140.0-450.0 MCH [Entitic mass] by Automated count 2025-01-16 05:43:21 27.1 pg F 25.9-34.2 Ferritin [Mass/volume] in Serum or Plasma 2025-01-16 02:42:24 303 ng/mL F 7.0-271.0 HCT CALC HGBX3 2025-01-01 14:19:46 27.9 % F 37.0-47.0 Hemoglobin [Mass/volume] in Blood 2025-01-01 14:19:11 9.3 g/dL F 12.0-16.0 IRON SATURATION 2024-12-19 04:51:11 11 % F 16.0-46.0 TIBC 2024-12-19 04:51:11 246 ug/dL F 250.0-425.0 Iron [Mass/volume] in Serum or Plasma 2024-12-19 04:30:59 27 ug/dL F 50.0-170.0 Iron binding capacity.unsaturated [Mass/volume] in Serum or Plasma 2024-12-19 04:30:59 219 ug/dL F 80.0-375.0 HCT CALC HGBX3 2024-12-18 15:17:01 28.2 % F 37.0-47.0 Hematocrit [Volume Fraction] of Blood by Automated count 2024-12-18 15:16:16 31.7 % F 37.0-47.0 MCV [Entitic volume] by Automated count 2024-12-18 15:16:16 92.7 fL F 80.0-100.0 Hemoglobin [Mass/volume] in Blood 2024-12-18 15:16:16 9.4 g/dL F 12.0-16.0 MCHC [Mass/volume] by Automated count 2024-12-18 15:16:16 29.7 g/dL F 29.6-35.3 Erythrocyte distribution width [Ratio] by Automated count 2024-12-18 15:16:16 16 % F 11.0-15.0 MCH [Entitic mass] by Automated count 2024-12-18 15:16:16 27.5 pg F 25.9-34.2 Erythrocytes [#/volume] in Blood by Automated count 2024-12-18 15:16:16 3.42 x 10^6 cells/uL F 3.85-5.2 Platelets [#/volume] in Blood by Automated count 2024-12-18 15:16:16 221 x 10^3 cells/uL F 140.0-450.0 Ferritin [Mass/volume] in Serum or Plasma 2024-12-18 14:32:12 943 ng/mL F 10.0-291.0 HCT CALC HGBX3 2024-12-05 15:06:02 24.9 % F 37.0-47.0 Hemoglobin [Mass/volume] in Blood 2024-12-05 15:05:13 8.3 g/dL F 12.0-16.0 HCT CALC HGBX3 2024-11-20 13:18:08 24.6 % F 37.0-47.0 Hematocrit [Volume Fraction] of Blood by Automated count 2024-11-20 13:17:12 26.5 % F 37.0-47.0 MCV [Entitic volume] by Automated count 2024-11-20 13:17:12 91.7 fL F 80.0-100.0 Platelets [#/volume] in Blood by Automated count 2024-11-20 13:17:12 221 x 10^3 cells/uL F 140.0-450.0 Erythrocyte distribution width [Ratio] by Automated count 2024-11-20 13:17:11 16.2 % F 11.0-15.0 MCH [Entitic mass] by Automated count 2024-11-20 13:17:11 28.3 pg F 25.9-34.2 Erythrocytes [#/volume] in Blood by Automated count 2024-11-20 13:17:11 2.89 x 10^6 cells/uL F 3.85-5.2 Hemoglobin [Mass/volume] in Blood 2024-11-20 13:17:11 8.2 g/dL F 12.0-16.0 MCHC [Mass/volume] by Automated count 2024-11-20 13:17:11 30.8 g/dL F 29.6-35.3 Comorbidities Description Draw Date Result/Unit Status Ref Range Result Comments Hemoglobin A1c/Hemoglobin.total in Blood 2024-12-18 15:41:11 6.5 %A1c F 0.0-5.6 FluidBP Description Draw Date Result/Unit Status Ref Range Result Comments Sodium [Moles/volume] in Serum or Plasma 2025-01-16 07:29:53 140 mEq/L F 136.0-145.0 Sodium [Moles/volume] in Serum or Plasma 2024-12-19 04:30:59 140 mEq/L F 136.0-145.0 Sodium [Moles/volume] in Serum or Plasma 2024-11-21 01:36:19 138 mEq/L F 136.0-145.0 General Description Draw Date Result/Unit Status Ref Range Result Comments Chloride [Moles/volume] in Serum or Plasma 2025-01-16 07:29:53 97 mEq/L F 98.0-107.0 Aspartate aminotransferase [Enzymatic activity/volume] in Serum or Plasma 2025-01-15 19:04:28 25 U/L F 0.0-33.0 Alanine aminotransferase [Enzymatic activity/volume] in Serum or Plasma 2025-01-15 19:04:28 17 U/L F 10.0-49.0 Chloride [Moles/volume] in Serum or Plasma 2024-12-19 04:30:59 98 mEq/L F 98.0-107.0 Alanine aminotransferase [Enzymatic activity/volume] in Serum or Plasma 2024-12-18 21:31:19 13 U/L F 10.0-49.0 Aspartate aminotransferase [Enzymatic activity/volume] in Serum or Plasma 2024-12-18 21:31:19 18 U/L F 0.0-33.0 Aluminum [Mass/volume] in Serum or Plasma 2024-12-18 18:26:25 10 ug/L F 0.0-9.0 Chloride [Moles/volume] in Serum or Plasma 2024-11-21 01:36:17 96 mEq/L F 98.0-107.0 Aspartate aminotransferase [Enzymatic activity/volume] in Serum or Plasma 2024-11-20 13:44:24 16 U/L F 0.0-33.0 Alanine aminotransferase [Enzymatic activity/volume] in Serum or Plasma 2024-11-20 13:44:22 13 U/L F 10.0-49.0 InfectionVaccination Description Draw Date Result/Unit Status Ref Range Result Comments Neutrophils/100 leukocytes in Blood by Automated count 2025-01-16 05:43:21 61.9 % F Neutrophils [#/volume] in Blood by Automated count 2025-01-16 05:43:21 3751 Cells/uL F 2000.0-8800.0 Basophils [#/volume] in Blood by Automated count 2025-01-16 05:43:21 18 Cells/uL F 0.0-400.0 Basophils/100 leukocytes in Blood by Automated count 2025-01-16 05:43:21 0.3 % F Lymphocytes/100 leukocytes in Blood by Automated count 2025-01-16 05:43:21 22.3 % F Monocytes/100 leukocytes in Blood by Automated count 2025-01-16 05:43:21 7.9 % F Eosinophils/100 leukocytes in Blood by Automated count 2025-01-16 05:43:21 7.5 % F Leukocytes [#/volume] in Blood by Automated count 2025-01-16 05:43:21 6.1 x 10^3 cells/uL F 4.0-11.0 Lymphocytes [#/volume] in Blood by Automated count 2025-01-16 05:43:21 1351 Cells/uL F 620.0-3660.0 Monocytes [#/volume] in Blood by Automated count 2025-01-16 05:43:21 479 Cells/uL F 0.0-1100.0 Eosinophils [#/volume] in Blood by Automated count 2025-01-16 05:43:21 454 Cells/uL F 0.0-700.0 Lymphocytes/100 leukocytes in Blood by Automated count 2024-12-18 15:16:16 22.3 % F Neutrophils [#/volume] in Blood by Automated count 2024-12-18 15:16:16 3969 Cells/uL F 2000.0-8800.0 Basophils/100 leukocytes in Blood by Automated count 2024-12-18 15:16:16 0.4 % F Neutrophils/100 leukocytes in Blood by Automated count 2024-12-18 15:16:16 63.5 % F Monocytes/100 leukocytes in Blood by Automated count 2024-12-18 15:16:16 8.8 % F Eosinophils/100 leukocytes in Blood by Automated count 2024-12-18 15:16:16 5 % F Leukocytes [#/volume] in Blood by Automated count 2024-12-18 15:16:16 6.2 x 10^3 cells/uL F 4.0-11.0 Lymphocytes [#/volume] in Blood by Automated count 2024-12-18 15:16:16 1394 Cells/uL F 620.0-3660.0 Monocytes [#/volume] in Blood by Automated count 2024-12-18 15:16:16 550 Cells/uL F 0.0-1100.0 Eosinophils [#/volume] in Blood by Automated count 2024-12-18 15:16:16 312 Cells/uL F 0.0-700.0 Basophils [#/volume] in Blood by Automated count 2024-12-18 15:16:16 25 Cells/uL F 0.0-400.0 Basophils/100 leukocytes in Blood by Automated count 2024-11-20 13:17:12 0.2 % F Basophils [#/volume] in Blood by Automated count 2024-11-20 13:17:12 10 Cells/uL F 0.0-400.0 Lymphocytes/100 leukocytes in Blood by Automated count 2024-11-20 13:17:11 39.5 % F Leukocytes [#/volume] in Blood by Automated count 2024-11-20 13:17:11 5.2 x 10^3 cells/uL F 4.0-11.0 Eosinophils [#/volume] in Blood by Automated count 2024-11-20 13:17:11 555 Cells/uL F 0.0-700.0 Neutrophils/100 leukocytes in Blood by Automated count 2024-11-20 13:17:11 41.4 % F Monocytes/100 leukocytes in Blood by Automated count 2024-11-20 13:17:11 8.4 % F Eosinophils/100 leukocytes in Blood by Automated count 2024-11-20 13:17:11 10.6 % F Neutrophils [#/volume] in Blood by Automated count 2024-11-20 13:17:11 2169 Cells/uL F 2000.0-8800.0 Lymphocytes [#/volume] in Blood by Automated count 2024-11-20 13:17:11 2070 Cells/uL F 620.0-3660.0 Monocytes [#/volume] in Blood by Automated count 2024-11-20 13:17:11 440 Cells/uL F 0.0-1100.0 MineralBone Disorder Description Draw Date Result/Unit Status Ref Range Result Comments CA CORRECTED 2025-01-16 14:27:24 8.9 mg/dL F CA/PHOS PRODUCT 2025-01-16 14:24:43 35.7 Calc F 21.0-53.0 CA*PO4 CORRCTD 2025-01-16 14:24:43 36.3 Calc F 21.0-53.0 Calcium [Mass/volume] in Serum or Plasma 2025-01-16 07:29:53 8.7 mg/dL F 8.7-10.4 Parathyrin.intact [Mass/volume] in Serum or Plasma 2025-01-16 02:42:24 292 pg/mL F 18.0-80.0 Alkaline phosphatase [Enzymatic activity/volume] in Serum or Plasma 2025-01-15 19:04:28 108 U/L F 46.0-116.0 Phosphate [Mass/volume] in Serum or Plasma 2025-01-15 19:04:28 4.1 mg/dL F 2.4-5.1 CA CORRECTED 2024-12-19 04:54:24 9 mg/dL F CA/PHOS PRODUCT 2024-12-19 04:51:11 39.2 Calc F 21.0-53.0 CA*PO4 CORRCTD 2024-12-19 04:51:11 39.5 Calc F 21.0-53.0 Calcium [Mass/volume] in Serum or Plasma 2024-12-19 04:30:59 8.9 mg/dL F 8.7-10.4 Alkaline phosphatase [Enzymatic activity/volume] in Serum or Plasma 2024-12-18 21:31:19 107 U/L F 46.0-116.0 Phosphate [Mass/volume] in Serum or Plasma 2024-12-18 21:31:19 4.4 mg/dL F 2.4-5.1 Parathyrin.intact [Mass/volume] in Serum or Plasma 2024-12-18 14:32:12 271 pg/mL F 18.0-80.0 CA CORRECTED 2024-11-21 01:43:12 9 mg/dL F CA*PO4 CORRCTD 2024-11-21 01:40:12 35.2 Calc F 21.0-53.0 CA/PHOS PRODUCT 2024-11-21 01:40:12 33.9 Calc F 21.0-53.0 Calcium [Mass/volume] in Serum or Plasma 2024-11-21 01:36:17 8.7 mg/dL F 8.7-10.4 Parathyrin.intact [Mass/volume] in Serum or Plasma 2024-11-20 15:11:18 217 pg/mL F 18.0-80.0 Alkaline phosphatase [Enzymatic activity/volume] in Serum or Plasma 2024-11-20 13:44:22 115 U/L F 46.0-116.0 Phosphate [Mass/volume] in Serum or Plasma 2024-11-20 13:44:22 3.9 mg/dL F 2.4-5.1 Nutrition Description Draw Date Result/Unit Status Ref Range Result Comments GLOBULIN 2025-01-16 14:24:43 3.1 g/dL F 0.9-5.0 A/G RATIO 2025-01-16 14:24:43 1.2 Calc F 1.0-2.5 Potassium [Moles/volume] in Serum or Plasma 2025-01-16 07:29:53 4.7 mEq/L F 3.5-5.1 Albumin [Mass/volume] in Serum or Plasma by Bromocresol green (BCG) dye binding method 2025-01-15 19:04:28 3.8 g/dL F 3.2-4.8 Lactate dehydrogenase [Enzymatic activity/volume] in Serum or Plasma 2025-01-15 19:04:28 207 U/L F 120.0-246.0 Protein [Mass/volume] in Serum or Plasma 2025-01-15 19:04:28 6.9 g/dL F 5.7-8.2 Bicarbonate [Moles/volume] in Serum or Plasma 2025-01-15 19:04:28 29 mEq/L F 20.0-31.0 Glucose [Mass/volume] in Serum or Plasma 2025-01-15 19:04:28 95 mg/dL F 74.0-106.0 Potassium [Moles/volume] in Serum or Plasma 2024-12-19 04:30:59 5.3 mEq/L F 3.5-5.1 GLOBULIN 2024-12-18 21:32:14 2.9 g/dL F 0.9-5.0 A/G RATIO 2024-12-18 21:32:14 1.3 Calc F 1.0-2.5 Albumin [Mass/volume] in Serum or Plasma by Bromocresol green (BCG) dye binding method 2024-12-18 21:31:19 3.9 g/dL F 3.2-4.8 Bicarbonate [Moles/volume] in Serum or Plasma 2024-12-18 21:31:19 26 mEq/L F 20.0-31.0 Glucose [Mass/volume] in Serum or Plasma 2024-12-18 21:31:19 183 mg/dL F 74.0-106.0 Lactate dehydrogenase [Enzymatic activity/volume] in Serum or Plasma 2024-12-18 21:31:19 215 U/L F 120.0-246.0 Protein [Mass/volume] in Serum or Plasma 2024-12-18 21:31:19 6.8 g/dL F 5.7-8.2 Potassium [Moles/volume] in Serum or Plasma 2024-11-21 01:36:17 3.9 mEq/L F 3.5-5.1 GLOBULIN 2024-11-20 13:45:09 2.9 g/dL F 0.9-5.0 A/G RATIO 2024-11-20 13:45:09 1.2 Calc F 1.0-2.5 Glucose [Mass/volume] in Serum or Plasma 2024-11-20 13:44:24 76 mg/dL F 74.0-106.0 Albumin [Mass/volume] in Serum or Plasma by Bromocresol green (BCG) dye binding method 2024-11-20 13:44:22 3.6 g/dL F 3.2-4.8 Bicarbonate [Moles/volume] in Serum or Plasma 2024-11-20 13:44:22 33 mEq/L F 20.0-31.0 Lactate dehydrogenase [Enzymatic activity/volume] in Serum or Plasma 2024-11-20 13:44:22 182 U/L F 120.0-246.0 Protein [Mass/volume] in Serum or Plasma 2024-11-20 13:44:22 6.5 g/dL F 5.7-8.2 Encounters No encounter information to report Immunizations Ordered Immunization Name Filled Immunization Name Date Status Comments Refusal Reason Pneumococcal conjugate PCV20, polysaccharide [id number] conjugate, adjuvant, 2024-09-10 14:54:44 Influenza, high-dose, quadrivalent, 2024-06-27 18:42:34 TST-PPD intradermal 2024-06-09 19:38:14 TST-PPD intradermal 2023-06-12 12:49:20 Hep B, adult 2023-01-23 15:09:34 Hep B, adult 2022-09-30 13:00:00 Hep B, adult 2022-08-26 13:03:33 Hep B, adult 2022-07-25 19:03:04 TST-PPD intradermal 2022-06-15 18:09:00 TST-PPD intradermal 2022-06-01 19:15:00 Influenza Vaccination 2022-04-18 06:00:00 Pneumococcal Vaccination 2018-05-20 06:00:00 Pneumococcal Vaccination 2013-05-19 06:00:00 Plan of Treatment Planned Activity Provider Planned Date Details Commen ts Future Scheduled Test Jame Dumont 2025-03-07 05:00:00 Ferritin [Mass/volume] in Serum or Plasma [code = 2276-4] Diagnostic Test Pending Jame Dumont 2024-05-06 07:27:01 Hemoglobin [Mass/volume] in Blood [code = 718-7] Diagnostic Test Pending Jame Dumont 2024-05-05 07:18:47 Alanine aminotransferase [Enzymatic activity/volume] in Serum or Plasma [code = 1742-6] [facility] 07:18:32 Parathyrin.intact [Mass/volume] in Serum or Plasma [code = 2731-8] Diagnostic Test Pending Jame Dumont 2024-05-04 13:57:53 Sodium [Moles/volume] in Serum or Plasma [code = 2951-2] Diagnostic Test Pending Jame Ramirezcell 2024-05-04 13:58:14 Potassium [Moles/volume] in Serum or Plasma [code = 2823-3] Diagnostic Test Pending Jame Ramirezcell 2024-05-04 13:57:47 Cobalamin (Vitamin B12) [Mass/volume] in Serum or Plasma [code = 2132-9] Diagnostic Test Pending Jame Ramirezcell 2024-05-04 13:57:01 Hemoglobin A1c/Hemoglobin.total in Blood [code = 4548-4] Diagnostic Test Pending Jame Dumont 2024-05-04 13:55:54 Aluminum [Mass/volume] in Serum or Plasma [code = 5574-9] Diagnostic Test Pending Jame Dumont 2024-05-04 13:57:40 25-Hydroxyvitamin D3+25-Hydroxyvitamin D2 [Mass/volume] in Serum or Plasma [code = 79413-0] Diagnostic Test Pending Jame Dumont 2024-05-04 14:00:13 Glucose [Mass/volume] in Serum or Plasma [code = 2345-7] Diagnostic Test Pending Jame Dumont 2024-05-04 13:56:11 Creatinine [Mass/volume] in Serum or Plasma [code = 2160-0] Diagnostic Test Pending Jame Dumont [facility] 2025-01-30 15:39:50 In-Center Hemodialysis Treatment [code = APK820] Diet Order Jame [facility] June 04, 2024 Diet Calorie 25 kcal/kg Fluid Value 1000 mL/d Phosphorus Value 1100 mg/d Potassium Value 3000 mg/d Protein Value 1.3 gm/kg Sodium Value 2000 mg/d Calculated Weight 86 kg dietary_diet_modification Carb Controlle d;
--- OUTSIDE RECORDS SUMMARY | 2025-02-03 15:25 | XMS_ITS | Encounter Summary ---
Author Organization [facility] Address [address] [place] [address] Care Team Providers Care Self Contained Behavior Unit Teacher Name Role Phone Rikki Amezquita MD Primary Care Provider [phone] Reason for Referral * Radiology Services (Routine) - Closed Specialty Diagnoses / Procedures Referred By Contac t Referred To Contact Vascular Lab Diagnoses ESRD (end stage renal disease) on dialysis (HCC) Procedures IR [facility] Paul Chandler MD [address] [place] [address] [place] [phone] Phone: tel: fax: [facility] [address] [place] [address], [address] [place] [address] Phone: tel: fax: Referral ID Status Reason Start Date Expiration Date Visits Re quested Visits Authorized [id number] Closed 10/01/2024 10/30/2024 1 1 Encounter Details Date Type Department Care Team (Late st Contact Info) Description 10/01/2024 Telephone [facility] [address] [place] [address], [address] [place] [address] Johana Kent, RN Social History [...] Info) Description 03/03/2025 2:15 PM CDT Appointment [facility] [address] [place] [address], [address] [place] [address] Fernando Couch MD [address] [place] [phone] documented as of this encounter Results * IR [facility] (10/30/2024 10:20 AM CDT) Anatomical Region Laterality Modality Lower Extremity, Upper Extremity, Chest X-Ray Angiography Narrative 10/30/2024 10:27 AM CDT Fernando Couch MD 10/30/2024 10:39 AM Interventional Radiology Post-Operative/Procedure Progress Notes Date: 10/30/2024 Surgeon: Fernando Couch MD [employer]: Staff Pre-Procedure diagnosis: ESRD, outflow vein stenosis [...] was obtained. Prior to beginning the procedure, [place] Protocol was performed to confirm the patient's [...] graft followed by placement of a 5 lao catheter. Fluoroscopy was used for all catheter [...] disease documented in this encounter Care Teams Self Contained Behavior Unit Teacher Relationship Specialty Start Date End Date Rikki Amezquita MD [address] [place] [address] PCP - General 11/28/21 documented as of this encounter
--- OUTSIDE RECORDS SUMMARY | 2025-02-03 15:25 | XMS_ITS | Clinical Summary ---
Author Organization [facility] Camille rowland [facility] Address [address] [facility] [place] [address] Care Team Providers Care A And P Mechanic Name Role Phone Unavailable Primary Care Provider [...] Description 02/16/2025 3:00 PM CDT Office Visit [facility] Oncology [facility] Hematology - [place] [address] [facility] [address] [place] [address] Jose Alejandro Anthony MD [address] [facility] [place] [address] Health Maintenance Due Date Last [...]
--- OUTSIDE RECORDS SUMMARY | 2025-02-03 15:25 | XMS_ITS | Clinical Summary ---
Author Organization [facility] Address [address] [place] [address] Care Team Providers Care Room Service Waiter Name Role Phone Mona Currie MD PhD Unavailable [phone] Sammy Shepard MD Unavailable [phone] Rikki Amezquita MD Primary Care Provider Allergies Active Allergy Reactions Criticality Noted Date Comments Diphenhydramine Other (See comments) Low Restless leg Nickel Rash Medium Nifedipine Chest tightness Medium Fwpotoe-Bkn-Mqx Reductase Inhibitors Muscle pain Medium Sulfa Hives [...] tablet (20 mg total) nightly Active banana phczly-EFC-new er 5 gram-45 kcal/60 mL liquid in [...] per tube 1 tablet (200 mcg total) magazine hand before breakfast 4 Active Additional Information Patient [...] 04/13/2024 Assessment & Plan (04/28/2024 2:26 PM LIVE TRUCK OPERATOR): Stable on room air, continue trelegy, spiriva, prn duonebs Assessment & Plan (04/13/2024 12:50 PM LIVE TRUCK OPERATOR): Stable on room air, continue trelegy, [...] 02/26/2024 Assessment & Plan (04/28/2024 2:29 PM LIVE TRUCK OPERATOR): Hb 9-10 at baseline, stable, continue [...] 01/25/2024 Assessment & Plan (04/28/2024 2:25 PM LIVE TRUCK OPERATOR): Tube removed, keep healing stoma clean, dry, covered. F/u with PCP Assessment & Plan (04/13/2024 12:46 PM LIVE TRUCK OPERATOR): Recently pulled out by patient, surgical site is healing, continue to clean daily and cover with dry gauze Assessment & Plan (04/09/2024 1:53 PM LIVE TRUCK OPERATOR): Ok to keep tube out, cover area daily with dry gauze until healed, notify provider for change in condition or sx of dysphagia Assessment & Plan (04/06/2024 8:05 PM LIVE TRUCK OPERATOR): Now tolerating PO, likely could permanently DC soon, continue with h2o flushes for now Assessment & Plan (03/15/2024 10:55 AM LIVE TRUCK OPERATOR): Continue to flush q.i.d., able to tolerate food by mouth, ROAD ENGINEER following Assessment & Plan (03/06/2024 9:49 PM [...] on imaging, continue nepro at 40ml/hr with ROAD ENGINEER following for repeat swallow studies Hyperkalemia 01/18/2024 Assessment & Plan (01/18/2024 7:41 AM CDT): Improved after treatment at the hospital. Continue to monitor with dialysis. 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 01/18/2024 Assessment & Plan (04/28/2024 2:31 PM LIVE TRUCK OPERATOR): Has some improvement with therapy but remains weak with hemiparesis and aphasia, requires full care for all ADLs, unable to reposition self and will require electric hospital bed at home, ongoing PT/OT Contonie asa, statin, eliquis Heart healthy diet with exercise as tolerated Maintain BP and glycemic control F/u PCP Assessment & Plan (04/13/2024 12:49 PM LIVE TRUCK OPERATOR): Deficits improving have seem to stabilize now ambulatory with walker and gait belt, tolerating PO, speech garbled, continue statin, eliquis, heart healthy diet with exercise as tolerated; may need to transfer to LTC vs home with home health and family to care Assessment & Plan (04/09/2024 1:53 PM LIVE TRUCK OPERATOR): Deficits improving, now ambulatory with walker and gait belt, tolerating PO, speech remains garbled, continue statin, eliquis, heart healthy diet with exercise as tolerated Assessment & Plan (04/06/2024 8:08 PM LIVE TRUCK OPERATOR): Improving with therapies, now ambulatory and tolerating PO, speech remains garbled, continue statin, eliquis, heart healthy diet with exercise as tolerated Assessment & Plan (03/31/2024 2:26 PM LIVE TRUCK OPERATOR): Speech and mobility improving, now ambulatory with walker and gait belt. Continue PT/OT/ROAD ENGINEER, continue statin and Eliquis, maintain BP and glycemic control Assessment & Plan (03/20/2024 8:07 PM LIVE TRUCK OPERATOR): Improving with therapy, continue statin and Eliquis, maintain BP and glycemic control. Continue PT OT, ROAD ENGINEER, remains a fall risk F/u with neurology as scheduled, plans to DC home with Assessment & Plan (03/15/2024 10:51 AM LIVE TRUCK OPERATOR): Improving with therapy, continue statin and Eliquis, maintain BP and glycemic control. Continue PT OT, ROAD ENGINEER, remains a fall risk Assessment & Plan (03/06/2024 9:49 PM CDT): Stable, improving with therapies, continue statin, eliquis, PT/OT/ROAD ENGINEER, supportive care, continue to advance diet as tolerated Assessment & Plan (02/27/2024 3:02 PM CDT): Stable, improving with therapies, continue statin, eliquis, PT/OT/ROAD ENGINEER, supportive care with plans to DC home following rehab stay Assessment & Plan (02/20/2024 1:56 PM CDT): Deficits improving with therapy, continue statin and eliquis, PT/OT/ROAD ENGINEER with video swallow scheduled Continue bID zyprexa 2.5mg for now, may tolerate GDR at subsequent visit Assessment & Plan (02/19/2024 10:51 AM CDT): Improving with therapy, no recurrent episodes of agitation since starting BID zyprexa, continue statin and eliquis, PT/OT/ROAD ENGINEER with video swallow scheduled Assessment & Plan (02/11/2024 1:32 PM CDT): Improving, continue statin and eliquis, PT/OT. ROAD ENGINEER following for advancement of diet, will schedule Zyprexa 2.5mg HS rather than In am, conitnue supportive care, fall precautions Assessment & Plan (02/08/2024 3:56 PM CDT): Mobility and speech improving with intermittent agitation, fall risk, zyprexa increased to 2.5mg daily as unable to be redirected at times. Continue statin, eliquis, PT/TO/ROAD ENGINEER, TF zainab per RD recs Assessment & Plan (02/03/2024 8:55 AM CDT): Mobility is improving, remains aphasic, able to follow simple commands and has spontaneous movements of all extremities; continue statin, eliquis, glycemic control, BP management, PT/OT/ROAD ENGINEER Assessment & Plan (02/01/2024 9:33 AM CDT): Mobility is improving, intermittent anxiety, will need to monitor and provide supportive care, attempt to avoid benzos or antipsychotics although may need prn low dose meds due to fall risk and inability to be redirected; continue statin, eliquis, glycemic control, BP management, PT/OT/ROAD ENGINEER Assessment & Plan (01/28/2024 2:35 PM CDT): [...] & Plan (01/25/2024 12:46 PM CDT): Ongoing PT/OT/ROAD ENGINEER with generalized weakness, aphasia and R sided facial droop, follows some simple commands, continue statin and eliquis; monitor for fall risk given intermittent agitation; no new meds today but may need PRN due to fall risk Assessment & Plan (01/25/2024 11:13 AM CDT): Mobility is improving now at times getting out of bed without help, continue to monitor for fall risk, PT/OT/ROAD ENGINEER; continue statin and eliquis Assessment & Plan (01/18/2024 5:52 PM CDT): Ongoing R sided weakness, R sided facial droop, aphasia; reports some improvement in spontaneous movement and mumbling. Continue asa, statin, eliquis; of note has documented statin intolerance, will need to find out specifics Continue PT/OT ROAD ENGINEER , tube feeds for now with plans for repeat video swallow Type 2 diabetes mellitus with renal complication 01/18/2024 Assessment & Plan (04/09/2024 1:54 PM LIVE TRUCK OPERATOR): Glucose logs reviewed and stable, continue HS lantus and mealtime SSI, will try to DC SSI prior to DC home Assessment & Plan (04/06/2024 8:06 PM LIVE TRUCK OPERATOR): Stable, continue HS lantus and mealtime [...] 04/11/2023 At risk for amiodarone toxicity with mcc u se 10/06/2022 Chronic anticoagulation 10/06/2022 Paroxysmal atrial fibrillation 10/06/2022 Assessment & Plan (04/28/2024 2:28 PM LIVE TRUCK OPERATOR): Rate controlled, continue metoprolol, amiodarone, eliquis F/u cardiology dr wiley Assessment & Plan (04/13/2024 12:46 PM LIVE TRUCK OPERATOR): Rate controlled on exam; continue metoprolol, amiodarone, Eliquis ; no recent falls Assessment & Plan (04/06/2024 8:06 PM LIVE TRUCK OPERATOR): Rate controlled; continue metoprolol, amiodarone, Eliquis Assessment & Plan (03/31/2024 2:29 PM LIVE TRUCK OPERATOR): Rate controlled on metoprolol, amiodarone; continue b.i.d. Eliquis Assessment & Plan (03/20/2024 8:09 PM LIVE TRUCK OPERATOR): Stable on metoprolol, amiodarone and eliquis, [...] 10/06/2022 Assessment & Plan (04/28/2024 2:26 PM LIVE TRUCK OPERATOR): Continue treatments outpatient MWF, epogen on HD days, f/u with nephrology Assessment & Plan (04/09/2024 1:54 PM LIVE TRUCK OPERATOR): Tolerating HD MWF, at times using p.r.n. lorazepam with HD treatment, anxiety during access. Monitor electrolytes and weight Continue Epogen Assessment & Plan (04/06/2024 8:08 PM LIVE TRUCK OPERATOR): Continue HD MWF, p.r.n. lorazepam with HD treatment. Monitor electrolytes and weight Continue Epogen Assessment & Plan (03/31/2024 2:26 PM LIVE TRUCK OPERATOR): Continue HD MWF, continues to use p.r.n. lorazepam with HD treatments; daughter states this is helping,. Monitor electrolytes and weight Continue Epogen Assessment & Plan (03/20/2024 8:08 PM LIVE TRUCK OPERATOR): Continue HD MWF, continue to monitor electrolytes and weight, may use p.r.n. lorazepam with HD treatments; no reports of recent agitation with treatments Assessment & Plan (03/15/2024 10:52 AM LIVE TRUCK OPERATOR): Continue HD MWF, continue to monitor [...] 3:59 PM CDT): Receiving treatments MWF at [facility], intermittent anxiety, increase zyprexa to [...] 5:55 PM CDT): Continue treatments MWF at [facility], TID calcium acetate, nephrology following, nepro tube feeds ordered, starting on jevity on admission due to no nepro available Assessment & Plan (01/18/2024 7:41 AM CDT): Continue with dialysis 3 times a week. Continue calcium acetate. Labs with dialysis. Preoperative cardiovascular examination 09/20/19 22 Chronic heart failure with preserved ejection fr action 07/02/2019 Assessment & Plan (04/28/2024 2:26 PM LIVE TRUCK OPERATOR): Stable, continue metoprolol, monitor weights with HD Assessment & Plan (03/20/2024 8:08 PM LIVE TRUCK OPERATOR): Stable on exam, continue metoprolol, monitor [...] 02/04 Assessment & Plan (04/06/2024 8:06 PM LIVE TRUCK OPERATOR): Weight is stable since rehab admission, continue exercise as tolerated, RD following Assessment & Plan (03/20/2024 8:09 PM LIVE TRUCK OPERATOR): Mobility is improving, recently stopped TF [...] 02/04 Assessment & Plan (04/13/2024 12:48 PM LIVE TRUCK OPERATOR): Stable/compensated, continue HD treatments, weekly weights, metoprolol, statin amio, eliquis Assessment & Plan (03/20/2024 8:08 PM LIVE TRUCK OPERATOR): Stable on metoprolol and amiodarone, continue [...] a associated with type 2 diabetes mellitus ([facility]) 05/20/2013 Overview (08/11/2016): DMII WO CMP UNCNTRLD Assessment & Plan (04/13/2024 12:48 PM LIVE TRUCK OPERATOR): Well controlled on lantus 18 units hs with mealtime SSI, continue accuchecks ac and hs Assessment & Plan (03/15/2024 10:54 AM LIVE TRUCK OPERATOR): Glucose logs reviewed continue lantus 18 [...] NOS Assessment & Plan (04/28/2024 2:28 PM LIVE TRUCK OPERATOR): Continue Lantus 18 units HS with mealtime SSI and daughter will assist with med administration Bp stable on metoprolol, monitor for BP goal ,140/<90 Continue accuchecks ac and hs Assessment & Plan (03/31/2024 2:28 PM LIVE TRUCK OPERATOR): Continue Lantus 18 units HS with mealtime SSI, glucose 236 this a.m., evening glucose 170, continue diabetic diet. BP stable on metoprolol Assessment & Plan (03/15/2024 10:53 AM LIVE TRUCK OPERATOR): BP stable on metoprolol 50mg daily, [...] NOS Assessment & Plan (04/13/2024 12:51 PM LIVE TRUCK OPERATOR): Subclinical hypothyroidism with TSH trending up to 92, encourage appropriate administration of medication in early a.m. on empty stomach, Synthroid increased to 200 mcg daily at previous visit with plan to repeat ths in 6 weeks, T3 and T4 normal Assessment & Plan (03/31/2024 2:30 PM LIVE TRUCK OPERATOR): Subclinical hypothyroidism with TSH trending up to 92, encourage appropriate administration of medication in early a.m. on empty stomach, Synthroid increased to 200 mcg daily Assessment & Plan (03/20/2024 8:09 PM LIVE TRUCK OPERATOR): Inpatient workup with Tsh elevated with normal t4, ensure medication administration appropriate early am on empty stomach; repeat TSH this week Assessment & Plan (03/15/2024 10:54 AM LIVE TRUCK OPERATOR): Inpatient workup with Tsh elevated with [...] on room air to complete PO abx, ROAD ENGINEER to follow, DC on prn duonebs, likely [...] drink = 0.6 oz pur e alcohol) [facility] Utilities Answer Date Recorded In the past 12 months has [employer], gas, oil, or water [employer] threatened to shut off services in your home? No 02/26/2024 Social Connection and Isolation Panel Answer Date Recorded In a typical week, how many times do you talk on the phone with family, friends, or neighbors? Three times a week 02/26/2024 How often do you get togethe r with friends or relatives? Three times a week 02/26/2024 How often do you attend [facility] or anabaptism services? Never 02/26/2024 Do you belong to any clubs o r organizations such as voodoo groups, unions, fraternal or athletic groups, or [...] any time in the past 12 m [facility], were you homeless or [...] on file Legal Sex Female 10:22 AM LIVE TRUCK OPERATOR Gender Identity Not on file Sexual Orientation Not on file Obstetrics History Last Filed Vital Signs Vital Sign Reading Time Taken Comments Blood Pressure 120/66 07/01/2024 9:38 AM LIVE TRUCK OPERATOR Pulse 55 07/01/2024 9:38 AM LIVE TRUCK OPERATOR Temperature 36.5 C (97.7 F) 03/03/2024 11:40 AM CDT Respiratory Rate 22 03/05/2024 8:31 AM CDT Oxygen Saturation 97% 07/01/2024 9:38 AM LIVE TRUCK OPERATOR Inhaled Oxygen Concentration - - Weight 89.7 kg (197 lb 11.2 oz) 07/01/2024 9:38 AM LIVE TRUCK OPERATOR Height 162.6 cm (5' 4) 07/01/2024 9:38 AM LIVE TRUCK OPERATOR Body Mass Index 33.94 07/01/2024 9:38 AM LIVE TRUCK OPERATOR Plan of Treatment Health Maintenance Due [...] POCT LIPID PANEL Routine 07/01/2024 9:57 AM LIVE TRUCK OPERATOR Need for lipid screening EGFR Routine 03/03/2024 6:45 AM CDT HEMOGLOBIN A1C Routine 02/27/2024 5:59 AM CDT HEPATITIS PANEL, ACUTE STAT 05/08/2022 3:59 PM LIVE TRUCK OPERATOR from Last 3 Months or Most Recently Relevant to Health Maintenance Results * POCT lipid panel (07/01/2024 9:57 AM LIVE TRUCK OPERATOR) Cholesterol, POC 138 mg/dL Comment:GLU = 176 HDL, POC 17 mg/dL Triglycerides, POC 168 mg/dL LDL Cholesterol POC 88 mg/dL Chol/HDL Ratio, POC 5.2 Non-HDL Cholesterol, POC 121 mg/dL Cholesterol Total, POC 138 mg/dL Capillary blood 07/01/2024 9 :57 AM LIVE TRUCK OPERATOR us Uirel Gillette MD POINT OF CARE TEST ORDER [...] LAB BLOOD ORDERABLES Final Resu lt [facility] [address] [facility] Department [place] [address] * (ABNORMAL) Hemoglobin A1c (02/27/2024 5:59 AM CDT) Hgb A1C 7.5(H) 4.0 - 5.6 % Estimated Average Glucose 169 mg/dL [facility] Comment: The ADA recommends reporting an estimated Average Glucose (eAG) with all Hemoglobin A1c results using the equation derived from a study of 507 normal and diabetic adults. Minority populations were underrepresented and children were not included. (Diabetes Care 31:7283-6398, 2008). The eAG is not equivalent to a fasting glucose. Blood 02/27/2024 5:59 AM CDT 02/27/2024 7:11 AM CDT us Asif Delgadillo MD LAB BLOOD ORDERABLES Final Re sult [facility] [address] [place] [address] * Hepatitis panel, acute (05/08/2022 3:59 PM LIVE TRUCK OPERATOR) Pathologist [facility] Hep A IgM Nonreactive Nonreactive [facility] Comment: Interpretive Data: If Hep A IgM Ab is reported as Equivocal, a new sample should be drawn in two weeks for testing. Current interpretive data was last revised on 19. Hep B core IgM Nonreactive Nonreactive [facility] Comment: Interpretive Data If HepB Core IgM Ab is reported as Equivocal, a new sample should be drawn in two weeks for testing. Current interpretive data was last revised on 19. Hep C Ab Nonreactive Nonreactive [facility] Comment: Interpretive Data Nonreactive: Antibodies [...] last revised on 2019. HepBsAg Nonreactive Nonreactive [facility] Blood 05/08/2022 3:59 PM LIVE TRUCK OPERATOR 05/08/2022 3:59 PM LIVE TRUCK OPERATOR Mellissa Garcia DO LAB MICROBIOLOGY - GENERAL ORD ERABLES Final Result [facility] [address] Department [place] [address] from Last 3 Months or Most Recently Relevant to Health Maintenance Insurance MEDICARE [facility] MEDICARE [facility] MEDICARE SUPPLEMENT Advance Directives For more information, please contact: [phone] Documents on File Type Date Recorded Patient Sales And Management Trainee Expl anation ADVANCE DIRECTIVE 03/04/2024 10:[address] - Phys Order for PT Preferences * Full Code (Latest Code Status on File) Date Activated Date Inactivated Comments 02/25/2024 5:55 PM 03/03/2024 4:42 PM * Full Code Date Activated Date Inactivated Comments 05/11/2021 3:52 AM 05/14/2021 8:52 PM Care Teams Room Service Waiter Relationship Specialty Start Date End Date Rikki Amezquita MD [address] [facility] [address] [place] [address] PCP - General Family Medicine 07/01/24 Mona Currie MD PhD Medical Oncologist/Cad Developer Medical Oncology 01/07/21 Sammy Shepard MD Consulting Physician Nephrology 05/14/21
== END 2025-02-03 15:19 | disposition home or self-care (01) ==
PROVIDERS: PCP Family Medicine; Visit Provider Physician Assistant
DX: R19.7 Diarrhea, unspecified (principal)
CPT/HCPCS: 87045; 87046; 87427

== ENCOUNTER 2025-02-09 22:47 | Inpatient (IN) | payer MEDICARE, SELFPAY ==
--- OUTSIDE RECORDS SUMMARY | 2010-03-17 10:45 | XMS_ITS | Continuity of Care Document ---
Author Organization [facility] Address [address] [facility] [place] [address] Mensah [address] [place] [phone] Phone Care Team Providers Care Text Transcriber Name Role Phone Mohsen Peña Unavailable Unavailable [...] Diagnoses Date Provider Providers Copied on Encounter [facility], [address] [place] [address] [address], [place], [place], [address], [place] tel:[phone] [facility] No Information 1-201 0 Casey Connolly. [address] [place], [address], [place]. tel:[phone] Referring Provider: Mohsen Merlos, [address] [place], [address]. tel:[phone] [facility], [address], [place], [place], [address], [place] tel:[phone] SEC [facility] No Information 8-201 0 Casey Connolly. [address] [place], [address], [place]. tel:[phone] Referring Provider: Mohsen Merlos, [address] [place], [address]. tel:[phone] [facility], [address] [place] [address] [address], [place], [place], [address], [place] tel:[phone] [facility] No Information 4-201 0 Casey Connolly. [address] [place], [address], [place]. tel:[phone] Referring Provider: Mohsen Merlos, [address] [place], [address]. tel:[phone] [facility], [address], [place], [place], [address], [place] tel:[phone] [facility] No Information September-0 3-201 0 Casey Connolly. [address] [place], [address], [place]. tel:[phone] Referring Provider: Mohsen Merlos, [address] [place], [address]. tel:[phone] [facility], [address] [place] [address] [address], [place], [place], [address], [place] tel:[phone] SEC [facility] No Information Jul-0 1-201 0 Casey Connolly. [address] [place], [address], [place]. tel:[phone] Referring Provider: Mohsen Merlos, [address] [place], [address]. tel:[phone] [facility], [address], [place], [place], [address], [place] tel:[phone] SEC [facility] No Information 5-201 0 Casey Connolly. [address] [place], [address], [place]. tel:[phone] Referring Provider: Mohsen Merlos, [address] [place], [facility]. tel:[phone] [facility], [address] [place] [address] [address], [place], [place], [address], [place] tel:[phone] SEC [facility] No Information Sep-1 4-200 9 Casey Connolly. [address] [place], [address], [place]. tel:[phone] Referring Provider: Mohsen Merlos, [address] [place], [address]. tel:[phone] [facility], [address], [place], [place], [address], [place] tel:[phone] [facility] No Information Aug-3 1-200 9 Casey Connolly. [address] [place], [address], [place]. tel:[phone] [facility], [address], [place], [place], [address], [place] tel:[phone] [facility] [place] No Information Aug-2 7-200 9 Casey Connolly. [address] [place], [address], [place]. tel:[phone] [facility], [address], [place], [place], [address], [place] tel:[phone] [facility] No Information 9 Casey Connolly. [address] [place], [address], [place]. tel:[phone] Referring Provider: Mohsen Merlos, [address] [place], [address]. tel:[phone] Office Consultation [facility], [address], [place], [place], [address], [place] tel:[phone] [facility] No Information 9 Casey Connolly. [address] [place], [address], [place]. tel:[phone] Referring Provider: Nataly Summers, [address], [place], [address]. tel:[phone] [facility], [address], [place], [place], [address], [place] tel:[phone] SEC [facility] No Information 0 200 9 Sheri Ingram. [address], [place], [address], [place]. tel:[phone] [facility], [address], [place], [place], [address], [place] tel:[phone] [facility] No Information 8 Sheri Rojas [address], [place], [address], [place]. tel:[phone] [facility], [address], [place], [place], [address], [place] tel:[phone] SEC [place] [facility] No Information Nov-0 8-200 7 Sheri Noblen. [address], [place], [address], [place]. tel:[phone] [facility], [address], [place], [place], [address], [place] tel:[phone] SEC [facility] No Information Oct-2 5-200 7 Casey Connolly. [address] [place], [address], [place]. tel:[phone] Referring Provider: Mohsen Merlos, [address] [place], [address]. tel:[phone] [facility], [address], [place], [place], [address], [place] tel:[phone] [facility] No Information Sep-2 7-200 7 Casey Connolly. [address] [place], [address], [place]. tel:[phone] [facility], [address], [place], [place], [address], [place] tel:[phone] [facility] No Information Sep-2 4-200 7 Casey Connolly. [address] [place], [address], [place]. tel:[phone] [facility], [address], [place], [place], [address], [place] tel:[phone] [facility] No Information Sep-1 7-200 7 Casey Connolly. [address] [place], [address], [place]. tel:[phone] [facility], [address], [place], [place], [address], [place] tel:[phone] [facility] No Information Sep-1 3-200 7 Casey Connolly. [address] [place], [address], [place]. tel:[phone] Referring Provider: Nataly Summers, [address], [place], [facility]. tel:[phone] [facility], [address], [place], [place], [address], [place] tel:[phone] [facility] No Information Dec- 0-200 7 Sheri Rojas [address], [place], [facility], [place]. tel:[phone] [facility], [address], [place], [place], [address], [place] tel:[phone] [facility] No Information Nov-3 0-200 7 Casey Connolly. [address] [place], [facility], [place]. tel:[phone] [facility], [address], [place], [place], [address], [place] tel:[phone] [facility] No Information Nov-2 0-200 7 Sheri Rojas [address], [place], [facility], [place]. tel:[phone] [facility], [address], [place], [place], [address], [place] tel:[phone] SEC [facility] No Information 2-200 7 Sheri Rojas [address], [place], [facility], [place]. tel:[phone] [facility], [address], [place], [place], [address], [place] tel:[phone] [facility] No Information Nov-1 1-200 7 Sheri Rojas [address], [place], [facility], [place]. tel:[phone] [facility], [address], [place], [place], [address], [place] tel:[phone] [facility] No Information Sam-2 2-200 7 Sheri Ingram. [address], [place], [facility], [place]. tel:[phone] Referring Provider: Nataly Summers, [address], [place], [facility]. tel:[phone] [facility], [address], [place], [place], [address], [place] tel:[phone] [facility] No Information Oct-1 4-200 7 Sheri Ingram. [address], [place], [facility], [place]. tel:[phone] [facility], [address], [place], [place], [address], [place] tel:[phone] [facility] No Information Oct-1 3-200 7 Sheri Ingram. [address], [place], [facility], [place]. tel:[phone] [facility], [address], [place], [place], [address], [place] tel:[phone] [facility] No Information September-2 5-200 7 Sheri Ingram. [address], [place], [address], [place]. tel:[phone] Referring Provider: Nataly Summers, [address], [place], [facility]. tel:[phone] Office Consultation [facility], [address], [place], [place], [address], [place] tel:[phone] SEC [facility] No Information Jul-2 6-200 7 Casey Connolly. [address] [place], [address], [place]. tel:[phone] Referring Provider: Nataly Summers, [address], [place], [facility]. tel:[phone] [facility], [address] [facility] [address], [place], [place], [address], [place] tel:[phone] [facility] No Information 7 Sheri Ingram. [address] [facility] , [address], [place], [address], [place]. tel:[phone] Referring Provider: John No[facility] [address], [place], [address]. tel:[phone] Family History Family Member Type Diagnosis Age At Onset No Information Payers Payer name Insurance type Covered green party ID Authoriza brianna(s) Juan [facility] [id number] Social History Type Description Quantity Date Captured [...]
--- NOTE | ~2025-02-09 | XR_ITS ---
Examination: XR chest 1V portable Clinical History: fever Comparison: 09/17/2024 Technique: Portable AP Findings: Heart size normal. Patchy opacity right lower lobe. Probable retrocardiac opacity. No acute bony abnormality. IMPRESSION: 1. Bibasilar airspace disease. Reviewed, dictated and finalized at location .
[2025-02-09 22:49] VITALS: PULSE 67; RESP 20; TEMP 37.7; O2SAT 97
--- NOTE | 2025-02-09 22:55 | ECG_ITS ---
Test Date: 2025-02-09 23:02:07 Measurements Intervals [place] Rate: 64 P: 9 MO: 206 QRS: 0 QRSD: 105 T: 30 QT: 437 QTc: 453 Interpretive Statements SINUS RHYTHM WITH FIRST DEGREE AV BLOCK DELAYED PRECORDIAL R/S TRANSITION BASELINE ARTIFACT- I, II, AVR, AVL, AVF BORDERLINE ECG Compared to ECG 09/17/2024 18:11:04 NO SIGNIFICANT CHANGE Electronically Signed On 02-10-2025 06:29:34 CDT by Brannon Hatfield D.O.
[2025-02-10] VITALS (18 sets, daily range): BP systolic 120–171; BP diastolic 60–104; PULSE 55–68; RESP 12–19; TEMP 36.4–37.1; O2SAT 92–100; BMI 34.2
[2025-02-10 01:06] LABS: Hematocrit 29.3 % (37.0-47.0); Hemoglobin 8.8 g/dL (12.0-15.0); Mean Corpuscular HGB Conc 30.0 g/dl (32-36); Mean Corpuscular Hemoglobin 27.3 pg (26-34); Mean Corpuscular Volume 91.0 fl (80-100); Platelet Count Result 194 k/mm3 (150-375); Red Blood Count 3.22 M/mm3 (4.2-5.4); White Blood Count 5.8 K/mm3 (4.5-10.0)
[2025-02-10 01:17] LABS: INR 1.6; Prothrombin Time 18.7 Seconds (11.1-14.7)
[2025-02-10 01:18] LABS: Partial Thromboplastin Time 35.3 Seconds (22.3-36.8)
[2025-02-10 01:41] LABS: Influenza A QL RT-PCR Negative (Negative); Influenza B QL RT-PCR Negative (Negative); RSV RNA, RT-PCR Negative (Negative); SARS-CoV-2 RNA PCR Negative (Negative)
[2025-02-10 01:42] LABS: Band Neutrophils Percent 3 % (0-6); Eosinophils Absolute Manual 0.34 K/mm3 (0.02-0.50); Eosinophils Percent Manual 6 % (0-4); Lymphocytes Absolute Manual 1.39 K/mm3 (1.1-4.5); Lymphocytes Percent Manual 24.0 % (18-44); Monocytes Absolute Manual 0.34 K/mm3 (0.1-0.90); Monocytes Percent Manual 6 % (3-9); Neutrophils Absolute Manual 3.71 K/mm3 (1.3-6.7); Neutrophils Percent Manual 61 % (46-73); Total Cells Counted 100
[2025-02-10 01:43] LABS: Anisocytosis 1+; Hypochromasia 1+; Microcytosis 1+ (NORMAL); Schistocytes None Seen
[2025-02-10 01:49] LABS: Alanine Aminotransferase 15 U/L (6-35); Albumin Level 3.7 g/dL (3.5-5.1); Alkaline Phosphatase 101 U/L (38-126); Anion Gap 11 mmol/L (4-12); Aspartate Amino Transferase 28 U/L (14-36); Bilirubin,Total 0.7 mg/dL (0.2-1.3); Blood Urea Nitrogen 25 mg/dL (7-17); CRP 0.8 mg/dL (<1.0); Calcium 8.1 mg/dL (8.4-10.2); Carbon Dioxide 31 mmol/L (22-30); Chloride 95 mmol/L (98-107); Estimated CRCL calculation 13 ml/min; Estimated Glomerular Filt Rate 12; Glucose 192 mg/dL (65-110); Lipase 56 U/L (23-300); Potassium 4.2 mmol/L (3.4-5.0); Sodium 137 mmol/L (137-145); Total Protein 7.4 g/dL (6.3-8.2)
--- OUTSIDE RECORDS SUMMARY | 2025-02-10 01:56 | XMS_ITS | Patient Health Record ---
Author Organization [facility] Address [address] [place], [place] [id number] Care Team Providers Care Grades 1 Through 6 Teacher Name Role Phone Brayan Amezquita Primary Care Provider Unavail able Sammy Shepard Unavailable [phone] Allergies No Known Allergies Reason For Referral [...] Notes Problem Chronic kidney disease stage 2 (993248468) Chronic kidney disease (CKD), stage II (mild) (N18.2) Active confirmed Problem Essential hypertension (91620942) Benign essential HTN (I10) Active confirmed Problem 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 (190011865795984) 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) Active confirmed Problem Essential hypertension (34758812) Essential (primary) hypertension (I10) Active confirmed Problem Chronic kidney disease stage 3A (disorder) (329605640) Chronic kidney disease, stage 3a (N18.31) Active [...] Coverage End Date Medicare [place] [address] [address] [place] [address] [id number] Gregoria Rae Self - patient is the insured [facility] [address] [place] [address] [phone] [id number] Gregoria Rae Self - patient is the insured Medical (General) History Medical History History ICD Code restless leg syndrome DM HTN CKD Surgical History Surgery Date(Month/Year) thryoidectomy cholecystectomy
--- OUTSIDE RECORDS SUMMARY | 2025-02-10 01:56 | XMS_ITS | Patient Health Record ---
Author Organization [facility] Address [address] [place] [address] Care Team Providers Care Supervisor Policy Change Clerks Name Role Phone Nighat Live Unavailable [phone] Reason For Referral No Information Medications Medication SIG (Take, Route, Frequency, Duration) Notes Start Date End Date Status Potassium Chloride ER 10 MEQ Tablet Extended Release Oral Active Pravastatin Sodium 10 MG Tablet Oral Active Doxycycline Hyclate 100 MG Tablet Oral Active traMADol HCl 50 MG Tablet Oral Active Furosemide 40 MG Tablet Oral Active Jgdbalbp-Vfdkyqmzs-R exameth [id number] Ointment Ophthalmic Active Sertraline HCl 50 MG [...] mL) INSULIN PEN (ML) SUBCUTANEOUS *Reorder from [employer] for eRx and Interaction Alerts* Active Ventolin HFA 108 (90 Base) MCG/ACT Aerosol Solution Inhalation Active Fluconazole 150 MG Tablet Oral Active Fluticasone Propionate Diskus 50 MCG/ACT Aerosol Powder Breath Activated Inhalation *Reorder from [employer] for eRx and Interaction Alerts* Active Synthroid 200 MCG Tablet Oral Active Plan Of Treatment No Information
--- OUTSIDE RECORDS SUMMARY | 2025-02-10 01:56 | XMS_ITS | Clinical Summary ---
Author Organization [facility] Address [address] [facility] [place] [address] Care Team Providers Care Community Development Specialist Name Role Phone Rikki Amezquita MD Primary Care Provider [phone] Source Comments [facility],non-owned Affiliates and Associated Physician Practices is amultiple site organization consisting of ambulatory clinics and hospital sitesin [place], [place], [place] and [place]. This disclosure is being madepursuant to the Care Everywhere program and may not contain all information available regarding this patient. Last updated 18.[facility] Allergies Active Allergy Reactions Criticality Noted Date [...] fluticasone propionate (Flonase) 50 MCG/ACT nasal spray [place] 2 (two) sprays into the nose once daily Active LORazepam (Ativan) 0.5 MG tablet 1 (one) tablet by Enteral route every 8 hours as needed Active nystatin (Mycostatin) 636798 UNIT/GM powder Apply 1 Application to affected [...] Oxygen Concentration 40% 04/12/2022 3 :16 PM STOVE TENDER Weight 120.2 kg (265 lb) 10/30/2024 9:43 AM CDT Height 157.5 cm (5' 2) 10/30/2024 9:43 AM CDT Body Mass Index 48.47 10/30/2024 9:43 AM CDT Plan of Treatment Upcoming Encounters Date Type Department Care Team (Late st Contact Info) Description 03/03/2025 2:15 PM CDT Appointment [facility] [address] [place] [address], [address] [place] [address] Fernando Couch MD [address] [...] age to complete this topic Insurance MEDICARE [facility] MEDICARE Advance Directives * Full Code (Latest Code Status on File) Date Activated Date Inactivated Comments 05/14/2022 8:26 AM 05/28/2022 12:06 PM Care Teams Community Development Specialist Relationship Specialty Start Date End Date Rikki Amezquita MD [address] [place] [address] PCP - General 11/28/21
--- OUTSIDE RECORDS SUMMARY | 2025-02-10 01:58 | XMS_ITS | Clinical Summary ---
Author Organization [facility] Address [address] [place] [address] Care Team Providers Care Government Service Executive Name Role Phone Unavailable Primary Care Provider [...] Vaccine ( - 2023-2 5 season) 2025 Influenza Adult (#1) 2025 Meningococcal B Vaccine Aged Out No l onger eligible based on patient's age to complete this topic Meningococcal Vaccine Aged Out No clarisa penelope eligible based on patient's age to complete this topic RSV Immunizations Under 20 Months Aged Out No longer eligible based on patient's age to complete this topic
--- OUTSIDE RECORDS SUMMARY | 2025-02-10 01:58 | XMS_ITS | Clinical Summary ---
Author Organization [facility] Camille rowland [facility] Address [address] [place] [address] Care Team Providers Care Indirect Sales Representative Name Role Phone Unavailable Primary Care Provider [...] Description 02/16/2025 3:00 PM CDT Office Visit [facility] Oncology and Hematology - Arnold[address] [facility] [address] [place] [address] Jose Alejandro Anthony MD [address] [place] [address] Health Maintenance Due Date Last [...]
--- OUTSIDE RECORDS SUMMARY | 2025-02-10 01:58 | XMS_ITS | Encounter Summary ---
Author Organization [facility] Address [address] [place] [address] Care Team Providers Care Terminal System Operator Name Role Phone Rikki Amezquita MD Primary Care Provider [phone] Reason for Referral * Radiology Services (Routine) - Closed Specialty Diagnoses / Procedures Referred By Contac t Referred To Contact Vascular Lab Diagnoses ESRD (end stage renal disease) on dialysis (HCC) Procedures IR Angio [facility] Paul Chandler MD [address] [place] [address] [place] [phone] Phone: tel: fax: [facility] Vascular Services [address] [place] [address], [address] [place] [address] Phone: tel: fax: Referral ID Status Reason Start Date Expiration Date Visits Re quested Visits Authorized [id number] Closed 10/01/2024 10/30/2024 1 1 Encounter Details Date Type Department Care Team (Late st Contact Info) Description 10/01/2024 Telephone [facility] Vascular Services [address] [place] [address], [address] [place] [address] Johana Kent, RN Social History [...] Info) Description 03/03/2025 2:15 PM CDT Appointment [facility] Services [address] [place] [address], [address] [place] [address] Fernando Couch MD [address] [place] [phone] documented as of this encounter Results * IR [facility] (10/30/2024 10:20 AM CDT) Anatomical Region Laterality Modality Lower Extremity, Upper Extremity, Chest X-Ray Angiography Narrative 10/30/2024 10:27 AM CDT Fernando Couch MD 10/30/2024 10:39 AM Interventional Radiology Post-Operative/Procedure Progress Notes Date: 10/30/2024 Surgeon: Fernando Couch MD Braid Cutter: Staff Pre-Procedure diagnosis: ESRD, outflow vein stenosis [...] was obtained. Prior to beginning the procedure, [place] Protocol was performed to confirm the patient's [...] graft followed by placement of a 5 nepali catheter. Fluoroscopy was used for all catheter [...] disease documented in this encounter Care Teams Terminal System Operator Relationship Specialty Start Date End Date Rikki Amezquita MD [address] [place] [address] PCP - General 11/28/21 documented as of this encounter
--- OUTSIDE RECORDS SUMMARY | 2025-02-10 01:58 | XMS_ITS | Clinical Summary ---
Author Organization [facility] Address [address] [place] [address] Care Team Providers Care Barrel Brander Name Role Phone Mona Currie MD PhD Unavailable [phone] Sammy Shepard MD Unavailable [phone] Rikki Amezquita MD Primary Care Provider Allergies Active Allergy Reactions Criticality Noted Date Comments Diphenhydramine Other (See comments) Low Restless leg Nickel Rash Medium Nifedipine Chest tightness Medium Yqfjdxj-Aro-Wmk Reductase Inhibitors Muscle pain Medium Sulfa Hives [...] tablet (20 mg total) nightly Active banana zwneco-AJH-mnv er 5 gram-45 kcal/60 mL liquid in [...] 1 tablet (200 mcg total) early childhood education specialist before breakfast 4 Active Additional Information [...] 04/13/2024 Assessment & Plan (04/28/2024 2:26 PM TRANSITIONAL KINDERGARTEN TEACHER): Stable on room air, continue trelegy, spiriva, prn duonebs Assessment & Plan (04/13/2024 12:50 PM TRANSITIONAL KINDERGARTEN TEACHER): Stable on room air, continue trelegy, spiriva, [...] 02/26/2024 Assessment & Plan (04/28/2024 2:29 PM TRANSITIONAL KINDERGARTEN TEACHER): Hb 9-10 at baseline, stable, continue epogen [...] 01/25/2024 Assessment & Plan (04/28/2024 2:25 PM TRANSITIONAL KINDERGARTEN TEACHER): Tube removed, keep healing stoma clean, dry, covered. F/u with PCP Assessment & Plan (04/13/2024 12:46 PM TRANSITIONAL KINDERGARTEN TEACHER): Recently pulled out by patient, surgical site is healing, continue to clean daily and cover with dry gauze Assessment & Plan (04/09/2024 1:53 PM TRANSITIONAL KINDERGARTEN TEACHER): Ok to keep tube out, cover area daily with dry gauze until healed, notify provider for change in condition or sx of dysphagia Assessment & Plan (04/06/2024 8:05 PM TRANSITIONAL KINDERGARTEN TEACHER): Now tolerating PO, likely could permanently DC soon, continue with h2o flushes for now Assessment & Plan (03/15/2024 10:55 AM TRANSITIONAL KINDERGARTEN TEACHER): Continue to flush q.i.d., able to tolerate food by mouth, COMBER SETTER following Assessment & Plan (03/06/2024 9:49 PM [...] on imaging, continue nepro at 40ml/hr with COMBER SETTER following for repeat swallow studies Hyperkalemia 01/18/2024 Assessment & Plan (01/18/2024 7:41 AM CDT): Improved after treatment at the hospital. Continue to monitor with dialysis. 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 01/18/2024 Assessment & Plan (04/28/2024 2:31 PM TRANSITIONAL KINDERGARTEN TEACHER): Has some improvement with therapy but remains weak with hemiparesis and aphasia, requires full care for all ADLs, unable to reposition self and will require electric hospital bed at home, ongoing PT/OT Contonie asa, statin, eliquis Heart healthy diet with exercise as tolerated Maintain BP and glycemic control F/u PCP Assessment & Plan (04/13/2024 12:49 PM TRANSITIONAL KINDERGARTEN TEACHER): Deficits improving have seem to stabilize now ambulatory with walker and gait belt, tolerating PO, speech garbled, continue statin, eliquis, heart healthy diet with exercise as tolerated; may need to transfer to LTC vs home with home health and family to care Assessment & Plan (04/09/2024 1:53 PM TRANSITIONAL KINDERGARTEN TEACHER): Deficits improving, now ambulatory with walker and gait belt, tolerating PO, speech remains garbled, continue statin, eliquis, heart healthy diet with exercise as tolerated Assessment & Plan (04/06/2024 8:08 PM TRANSITIONAL KINDERGARTEN TEACHER): Improving with therapies, now ambulatory and tolerating PO, speech remains garbled, continue statin, eliquis, heart healthy diet with exercise as tolerated Assessment & Plan (03/31/2024 2:26 PM TRANSITIONAL KINDERGARTEN TEACHER): Speech and mobility improving, now ambulatory with walker and gait belt. Continue PT/OT/COMBER SETTER, continue statin and Eliquis, maintain BP and glycemic control Assessment & Plan (03/20/2024 8:07 PM TRANSITIONAL KINDERGARTEN TEACHER): Improving with therapy, continue statin and Eliquis, maintain BP and glycemic control. Continue PT OT, COMBER SETTER, remains a fall risk F/u with neurology as scheduled, plans to DC home with Assessment & Plan (03/15/2024 10:51 AM TRANSITIONAL KINDERGARTEN TEACHER): Improving with therapy, continue statin and Eliquis, maintain BP and glycemic control. Continue PT OT, COMBER SETTER, remains a fall risk Assessment & Plan (03/06/2024 9:49 PM CDT): Stable, improving with therapies, continue statin, eliquis, PT/OT/COMBER SETTER, supportive care, continue to advance diet as tolerated Assessment & Plan (02/27/2024 3:02 PM CDT): Stable, improving with therapies, continue statin, eliquis, PT/OT/COMBER SETTER, supportive care with plans to DC home following rehab stay Assessment & Plan (02/20/2024 1:56 PM CDT): Deficits improving with therapy, continue statin and eliquis, PT/OT/COMBER SETTER with video swallow scheduled Continue bID zyprexa 2.5mg for now, may tolerate GDR at subsequent visit Assessment & Plan (02/19/2024 10:51 AM CDT): Improving with therapy, no recurrent episodes of agitation since starting BID zyprexa, continue statin and eliquis, PT/OT/COMBER SETTER with video swallow scheduled Assessment & Plan (02/11/2024 1:32 PM CDT): Improving, continue statin and eliquis, PT/OT. COMBER SETTER following for advancement of diet, will schedule Zyprexa 2.5mg HS rather than In am, conitnue supportive care, fall precautions Assessment & Plan (02/08/2024 3:56 PM CDT): Mobility and speech improving with intermittent agitation, fall risk, zyprexa increased to 2.5mg daily as unable to be redirected at times. Continue statin, eliquis, PT/TO/COMBER SETTER, TF zainab per RD recs Assessment & Plan (02/03/2024 8:55 AM CDT): Mobility is improving, remains aphasic, able to follow simple commands and has spontaneous movements of all extremities; continue statin, eliquis, glycemic control, BP management, PT/OT/COMBER SETTER Assessment & Plan (02/01/2024 9:33 AM CDT): Mobility is improving, intermittent anxiety, will need to monitor and provide supportive care, attempt to avoid benzos or antipsychotics although may need prn low dose meds due to fall risk and inability to be redirected; continue statin, eliquis, glycemic control, BP management, PT/OT/COMBER SETTER Assessment & Plan (01/28/2024 2:35 PM CDT): [...] & Plan (01/25/2024 12:46 PM CDT): Ongoing PT/OT/COMBER SETTER with generalized weakness, aphasia and R sided facial droop, follows some simple commands, continue statin and eliquis; monitor for fall risk given intermittent agitation; no new meds today but may need PRN due to fall risk Assessment & Plan (01/25/2024 11:13 AM CDT): Mobility is improving now at times getting out of bed without help, continue to monitor for fall risk, PT/OT/COMBER SETTER; continue statin and eliquis Assessment & Plan (01/18/2024 5:52 PM CDT): Ongoing R sided weakness, R sided facial droop, aphasia; reports some improvement in spontaneous movement and mumbling. Continue asa, statin, eliquis; of note has documented statin intolerance, will need to find out specifics Continue PT/OT COMBER SETTER , tube feeds for now with plans for repeat video swallow Type 2 diabetes mellitus with renal complication 01/18/2024 Assessment & Plan (04/09/2024 1:54 PM TRANSITIONAL KINDERGARTEN TEACHER): Glucose logs reviewed and stable, continue HS lantus and mealtime SSI, will try to DC SSI prior to DC home Assessment & Plan (04/06/2024 8:06 PM TRANSITIONAL KINDERGARTEN TEACHER): Stable, continue HS lantus and mealtime SSI, [...] 04/11/2023 At risk for amiodarone toxicity with technician terminal and repeater u se 10/06/2022 Chronic anticoagulation 10/06/2022 Paroxysmal atrial fibrillation 10/06/2022 Assessment & Plan (04/28/2024 2:28 PM TRANSITIONAL KINDERGARTEN TEACHER): Rate controlled, continue metoprolol, amiodarone, eliquis F/u cardiology dr wiley Assessment & Plan (04/13/2024 12:46 PM TRANSITIONAL KINDERGARTEN TEACHER): Rate controlled on exam; continue metoprolol, amiodarone, Eliquis ; no recent falls Assessment & Plan (04/06/2024 8:06 PM TRANSITIONAL KINDERGARTEN TEACHER): Rate controlled; continue metoprolol, amiodarone, Eliquis Assessment & Plan (03/31/2024 2:29 PM TRANSITIONAL KINDERGARTEN TEACHER): Rate controlled on metoprolol, amiodarone; continue b.i.d. Eliquis Assessment & Plan (03/20/2024 8:09 PM TRANSITIONAL KINDERGARTEN TEACHER): Stable on metoprolol, amiodarone and eliquis, conitnue [...] 10/06/2022 Assessment & Plan (04/28/2024 2:26 PM TRANSITIONAL KINDERGARTEN TEACHER): Continue treatments outpatient MWF, epogen on HD days, f/u with nephrology Assessment & Plan (04/09/2024 1:54 PM TRANSITIONAL KINDERGARTEN TEACHER): Tolerating HD MWF, at times using p.r.n. lorazepam with HD treatment, anxiety during access. Monitor electrolytes and weight Continue Epogen Assessment & Plan (04/06/2024 8:08 PM TRANSITIONAL KINDERGARTEN TEACHER): Continue HD MWF, p.r.n. lorazepam with HD treatment. Monitor electrolytes and weight Continue Epogen Assessment & Plan (03/31/2024 2:26 PM TRANSITIONAL KINDERGARTEN TEACHER): Continue HD MWF, continues to use p.r.n. lorazepam with HD treatments; daughter states this is helping,. Monitor electrolytes and weight Continue Epogen Assessment & Plan (03/20/2024 8:08 PM TRANSITIONAL KINDERGARTEN TEACHER): Continue HD MWF, continue to monitor electrolytes and weight, may use p.r.n. lorazepam with HD treatments; no reports of recent agitation with treatments Assessment & Plan (03/15/2024 10:52 AM TRANSITIONAL KINDERGARTEN TEACHER): Continue HD MWF, continue to monitor electrolytes [...] treatments MWF at [facility], intermittent anxiety, increase zyprexa to daily, may [...] treatments MWF at [facility], TID calcium acetate, nephrology following, nepro tube feeds ordered, starting on jevity on admission due to no nepro available Assessment & Plan (01/18/2024 7:41 AM CDT): Continue with dialysis 3 times a week. Continue calcium acetate. Labs with dialysis. Preoperative cardiovascular examination 09/20/19 22 Chronic heart failure with preserved ejection fr action 07/02/2019 Assessment & Plan (04/28/2024 2:26 PM TRANSITIONAL KINDERGARTEN TEACHER): Stable, continue metoprolol, monitor weights with HD Assessment & Plan (03/20/2024 8:08 PM TRANSITIONAL KINDERGARTEN TEACHER): Stable on exam, continue metoprolol, monitor I/O, [...] 02/04 Assessment & Plan (04/06/2024 8:06 PM TRANSITIONAL KINDERGARTEN TEACHER): Weight is stable since rehab admission, continue exercise as tolerated, RD following Assessment & Plan (03/20/2024 8:09 PM TRANSITIONAL KINDERGARTEN TEACHER): Mobility is improving, recently stopped TF and [...] 02/04 Assessment & Plan (04/13/2024 12:48 PM TRANSITIONAL KINDERGARTEN TEACHER): Stable/compensated, continue HD treatments, weekly weights, metoprolol, statin amio, eliquis Assessment & Plan (03/20/2024 8:08 PM TRANSITIONAL KINDERGARTEN TEACHER): Stable on metoprolol and amiodarone, continue HD [...] with type 2 diabetes mellitus ([facility]) 05/20/2013 Overview (08/11/2016): DMII WO CMP UNCNTRLD Assessment & Plan (04/13/2024 12:48 PM TRANSITIONAL KINDERGARTEN TEACHER): Well controlled on lantus 18 units hs with mealtime SSI, continue accuchecks ac and hs Assessment & Plan (03/15/2024 10:54 AM TRANSITIONAL KINDERGARTEN TEACHER): Glucose logs reviewed continue lantus 18 units [...] NOS Assessment & Plan (04/28/2024 2:28 PM TRANSITIONAL KINDERGARTEN TEACHER): Continue Lantus 18 units HS with mealtime SSI and daughter will assist with med administration Bp stable on metoprolol, monitor for BP goal ,140/<90 Continue accuchecks ac and hs Assessment & Plan (03/31/2024 2:28 PM TRANSITIONAL KINDERGARTEN TEACHER): Continue Lantus 18 units HS with mealtime SSI, glucose 236 this a.m., evening glucose 170, continue diabetic diet. BP stable on metoprolol Assessment & Plan (03/15/2024 10:53 AM TRANSITIONAL KINDERGARTEN TEACHER): BP stable on metoprolol 50mg daily, continue [...] NOS Assessment & Plan (04/13/2024 12:51 PM TRANSITIONAL KINDERGARTEN TEACHER): Subclinical hypothyroidism with TSH trending up to 92, encourage appropriate administration of medication in early a.m. on empty stomach, Synthroid increased to 200 mcg daily at previous visit with plan to repeat ths in 6 weeks, T3 and T4 normal Assessment & Plan (03/31/2024 2:30 PM TRANSITIONAL KINDERGARTEN TEACHER): Subclinical hypothyroidism with TSH trending up to 92, encourage appropriate administration of medication in early a.m. on empty stomach, Synthroid increased to 200 mcg daily Assessment & Plan (03/20/2024 8:09 PM TRANSITIONAL KINDERGARTEN TEACHER): Inpatient workup with Tsh elevated with normal t4, ensure medication administration appropriate early am on empty stomach; repeat TSH this week Assessment & Plan (03/15/2024 10:54 AM TRANSITIONAL KINDERGARTEN TEACHER): Inpatient workup with Tsh elevated with normal [...] on room air to complete PO abx, COMBER SETTER to follow, DC on prn duonebs, likely [...] drink = 0.6 oz pur e alcohol) [facility] Utilities Answer Date Recorded In the past 12 months has [employer], gas, oil, or water [employer] threatened to shut off services in your home? No 02/26/2024 Social Connection and Isolation Panel Answer Date Recorded In a typical week, how many times do you talk on the phone with family, friends, or neighbors? Three times a week 02/26/2024 How often do you get togethe r with friends or relatives? Three times a week 02/26/2024 How often do you attend [facility] or adventist services? Never 02/26/2024 Do you belong to any clubs o r organizations such as holiness groups, unions, fraternal or athletic groups, or [...] place to sleep or slept in a group home (including now)? No 05/13/2021 Housing Stability [...] in the past 12 m [facility], were you homeless or living in a group home (including now)? No 02/26/2024 Personal Safety Answer Date Recorded Have you ever been in or are you currently in a harmful physical or emotional relationship or is someone making you feel afraid or unsafe? Denies 02/25/2024 Comments No Sex and Gender Information Value Date Recorded Sex Assigned at Not on file Legal Sex Female 10:22 AM TRANSITIONAL KINDERGARTEN TEACHER Gender Identity Not on file Sexual Orientation Not on file Obstetrics History Last Filed Vital Signs Vital Sign Reading Time Taken Comments Blood Pressure 120/66 07/01/2024 9:38 AM TRANSITIONAL KINDERGARTEN TEACHER Pulse 55 07/01/2024 9:38 AM TRANSITIONAL KINDERGARTEN TEACHER Temperature 36.5 C (97.7 F) 03/03/2024 11:40 AM CDT Respiratory Rate 22 03/05/2024 8:31 AM CDT Oxygen Saturation 97% 07/01/2024 9:38 AM TRANSITIONAL KINDERGARTEN TEACHER Inhaled Oxygen Concentration - - Weight 89.7 kg (197 lb 11.2 oz) 07/01/2024 9:38 AM TRANSITIONAL KINDERGARTEN TEACHER Height 162.6 cm (5' 4) 07/01/2024 9:38 AM TRANSITIONAL KINDERGARTEN TEACHER Body Mass Index 33.94 07/01/2024 9:38 AM TRANSITIONAL KINDERGARTEN TEACHER Plan of Treatment Health Maintenance Due Date [...] POCT LIPID PANEL Routine 07/01/2024 9:57 AM TRANSITIONAL KINDERGARTEN TEACHER Need for lipid screening EGFR Routine 03/03/2024 6:45 AM CDT HEMOGLOBIN A1C Routine 02/27/2024 5:59 AM CDT HEPATITIS PANEL, ACUTE STAT 05/08/2022 3:59 PM TRANSITIONAL KINDERGARTEN TEACHER from Last 3 Months or Most Recently Relevant to Health Maintenance Results * POCT lipid panel (07/01/2024 9:57 AM TRANSITIONAL KINDERGARTEN TEACHER) Cholesterol, POC 138 mg/dL Comment:GLU = 176 HDL, POC 17 mg/dL Triglycerides, POC 168 mg/dL LDL Cholesterol POC 88 mg/dL Chol/HDL Ratio, POC 5.2 Non-HDL Cholesterol, POC 121 mg/dL Cholesterol Total, POC 138 mg/dL Capillary blood 07/01/2024 9 :57 AM TRANSITIONAL KINDERGARTEN TEACHER us Uriel Gillette MD POINT OF CARE [...] LAB BLOOD ORDERABLES Final Resu lt [facility] [address] [facility] Department [place] [address] * (ABNORMAL) Hemoglobin A1c (02/27/2024 5:59 AM CDT) Hgb A1C 7.5(H) 4.0 - 5.6 % Estimated Average Glucose 169 mg/dL [facility] Comment: The ADA recommends reporting an estimated Average Glucose (eAG) with all Hemoglobin A1c results using the equation derived from a study of 507 normal and diabetic adults. Minority populations were underrepresented and children were not included. (Diabetes Care 31:0769-3600, 2008). The eAG is not equivalent to a fasting glucose. Blood 02/27/2024 5:59 AM CDT 02/27/2024 7:11 AM CDT us Asif Delgadillo MD LAB BLOOD ORDERABLES Final Re sult [facility] [address] [facility] Department [place] [address] * Hepatitis panel, acute (05/08/2022 3:59 PM TRANSITIONAL KINDERGARTEN TEACHER) Pathologist [facility] Hep A IgM Nonreactive Nonreactive [facility] Comment: Interpretive Data: If Hep A IgM Ab is reported as Equivocal, a new sample should be drawn in two weeks for testing. Current interpretive data was last revised on 19. Hep B core IgM Nonreactive Nonreactive [facility] Comment: Interpretive Data If HepB Core IgM Ab is reported as Equivocal, a new sample should be drawn in two weeks for testing. Current interpretive data was last revised on 19. Hep C Ab Nonreactive Nonreactive [facility] Comment: Interpretive Data Nonreactive: Antibodies to [...] last revised on 2019. HepBsAg Nonreactive Nonreactive [facility] Blood 05/08/2022 3:59 PM TRANSITIONAL KINDERGARTEN TEACHER 05/08/2022 3:59 PM TRANSITIONAL KINDERGARTEN TEACHER Mellissa Garcia DO LAB MICROBIOLOGY - GENERAL ORD ERABLES Final Result 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 ADVANCE DIRECTIVE 03/04/2024 10:[address] - Phys Order for PT Preferences * Full Code (Latest Code Status on File) Date Activated Date Inactivated Comments 02/25/2024 5:55 PM 03/03/2024 4:42 PM * Full Code Date Activated Date Inactivated Comments 05/11/2021 3:52 AM 05/14/2021 8:52 PM Care Teams Barrel Brander Relationship Specialty Start Date End Date Rikki Amezquita MD [address] [facility] [facility] [facility] [address] [place] [address] PCP - General Family Medicine 07/01/24 Mona Currie MD PhD Medical Oncologist/Raw Stock Machine Feeder Medical Oncology 01/07/21 Sammy Shepard MD Consulting Physician Nephrology 05/14/21
--- OUTSIDE RECORDS SUMMARY | 2025-02-10 01:58 | XMS_ITS ---
Author Organization [facility] Address [address] [place] [address] Care Team Providers Care Authorization Coordinator Name Role Phone Mona Currie MD PhD Unavailable [phone] Sammy Shepard MD Unavailable [phone] Rikki Amezquita MD Primary Care Provider Dialysis Access Sites Type Status Location Placement Date Removal Da te Hemodialysis AV Access Upper arm Active Left Upper Arm - Anterior Procedures Procedure Name Priority Date/Time Associated Diagnosis Comments POCT LIPID PANEL Routine 07/01/2024 9:57 AM CHILDREN COUNSELOR Need for lipid screening EGFR Routine 03/03/2024 6:45 AM CDT HEMOGLOBIN A1C Routine 02/27/2024 5:59 AM CDT HEPATITIS PANEL, ACUTE STAT 05/08/2022 3:59 PM CHILDREN COUNSELOR from Last 3 Months or Most Recently Relevant to Health Maintenance Allergies Active Allergy Reactions Criticality Noted Date Comments Diphenhydramine Other (See comments) Low Restless leg Nickel Rash Medium Nifedipine Chest tightness Medium Bsgujnf-Gdj-Cad Reductase Inhibitors Muscle pain Medium Sulfa Hives [...] tablet (20 mg total) nightly Active banana depbyr-NTA-pem er 5 gram-45 kcal/60 mL liquid in [...] per tube 1 tablet (200 mcg total) watershed coordinator before breakfast 4 Active Additional Information Patient [...] 04/13/2024 Assessment & Plan (04/28/2024 2:26 PM CHILDREN COUNSELOR): Stable on room air, continue trelegy, spiriva, prn duonebs Assessment & Plan (04/13/2024 12:50 PM CHILDREN COUNSELOR): Stable on room air, continue trelegy, spiriva, [...] 02/26/2024 Assessment & Plan (04/28/2024 2:29 PM CHILDREN COUNSELOR): Hb 9-10 at baseline, stable, continue epogen [...] 01/25/2024 Assessment & Plan (04/28/2024 2:25 PM CHILDREN COUNSELOR): Tube removed, keep healing stoma clean, dry, covered. F/u with PCP Assessment & Plan (04/13/2024 12:46 PM CHILDREN COUNSELOR): Recently pulled out by patient, surgical site is healing, continue to clean daily and cover with dry gauze Assessment & Plan (04/09/2024 1:53 PM CHILDREN COUNSELOR): Ok to keep tube out, cover area daily with dry gauze until healed, notify provider for change in condition or sx of dysphagia Assessment & Plan (04/06/2024 8:05 PM CHILDREN COUNSELOR): Now tolerating PO, likely could permanently DC soon, continue with h2o flushes for now Assessment & Plan (03/15/2024 10:55 AM CHILDREN COUNSELOR): Continue to flush q.i.d., able to tolerate food by mouth, CURING ROOM WORKER following Assessment & Plan (03/06/2024 9:49 PM [...] on imaging, continue nepro at 40ml/hr with CURING ROOM WORKER following for repeat swallow studies Hyperkalemia 01/18/2024 Assessment & Plan (01/18/2024 7:41 AM CDT): Improved after treatment at the hospital. Continue to monitor with dialysis. 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 01/18/2024 Assessment & Plan (04/28/2024 2:31 PM CHILDREN COUNSELOR): Has some improvement with therapy but remains weak with hemiparesis and aphasia, requires full care for all ADLs, unable to reposition self and will require electric hospital bed at home, ongoing PT/OT Contonie asa, statin, eliquis Heart healthy diet with exercise as tolerated Maintain BP and glycemic control F/u PCP Assessment & Plan (04/13/2024 12:49 PM CHILDREN COUNSELOR): Deficits improving have seem to stabilize now ambulatory with walker and gait belt, tolerating PO, speech garbled, continue statin, eliquis, heart healthy diet with exercise as tolerated; may need to transfer to LTC vs home with home health and family to care Assessment & Plan (04/09/2024 1:53 PM CHILDREN COUNSELOR): Deficits improving, now ambulatory with walker and gait belt, tolerating PO, speech remains garbled, continue statin, eliquis, heart healthy diet with exercise as tolerated Assessment & Plan (04/06/2024 8:08 PM CHILDREN COUNSELOR): Improving with therapies, now ambulatory and tolerating PO, speech remains garbled, continue statin, eliquis, heart healthy diet with exercise as tolerated Assessment & Plan (03/31/2024 2:26 PM CHILDREN COUNSELOR): Speech and mobility improving, now ambulatory with walker and gait belt. Continue PT/OT/CURING ROOM WORKER, continue statin and Eliquis, maintain BP and glycemic control Assessment & Plan (03/20/2024 8:07 PM CHILDREN COUNSELOR): Improving with therapy, continue statin and Eliquis, maintain BP and glycemic control. Continue PT OT, CURING ROOM WORKER, remains a fall risk F/u with neurology as scheduled, plans to DC home with Assessment & Plan (03/15/2024 10:51 AM CHILDREN COUNSELOR): Improving with therapy, continue statin and Eliquis, maintain BP and glycemic control. Continue PT OT, CURING ROOM WORKER, remains a fall risk Assessment & Plan (03/06/2024 9:49 PM CDT): Stable, improving with therapies, continue statin, eliquis, PT/OT/CURING ROOM WORKER, supportive care, continue to advance diet as tolerated Assessment & Plan (02/27/2024 3:02 PM CDT): Stable, improving with therapies, continue statin, eliquis, PT/OT/CURING ROOM WORKER, supportive care with plans to DC home following rehab stay Assessment & Plan (02/20/2024 1:56 PM CDT): Deficits improving with therapy, continue statin and eliquis, PT/OT/CURING ROOM WORKER with video swallow scheduled Continue bID zyprexa 2.5mg for now, may tolerate GDR at subsequent visit Assessment & Plan (02/19/2024 10:51 AM CDT): Improving with therapy, no recurrent episodes of agitation since starting BID zyprexa, continue statin and eliquis, PT/OT/CURING ROOM WORKER with video swallow scheduled Assessment & Plan (02/11/2024 1:32 PM CDT): Improving, continue statin and eliquis, PT/OT. CURING ROOM WORKER following for advancement of diet, will schedule Zyprexa 2.5mg HS rather than In am, conitnue supportive care, fall precautions Assessment & Plan (02/08/2024 3:56 PM CDT): Mobility and speech improving with intermittent agitation, fall risk, zyprexa increased to 2.5mg daily as unable to be redirected at times. Continue statin, eliquis, PT/TO/CURING ROOM WORKER, TF nepro per RD recs Assessment & Plan (02/03/2024 8:55 AM CDT): Mobility is improving, remains aphasic, able to follow simple commands and has spontaneous movements of all extremities; continue statin, eliquis, glycemic control, BP management, PT/OT/CURING ROOM WORKER Assessment & Plan (02/01/2024 9:33 AM CDT): Mobility is improving, intermittent anxiety, will need to monitor and provide supportive care, attempt to avoid benzos or antipsychotics although may need prn low dose meds due to fall risk and inability to be redirected; continue statin, eliquis, glycemic control, BP management, PT/OT/CURING ROOM WORKER Assessment & Plan (01/28/2024 2:35 PM CDT): [...] & Plan (01/25/2024 12:46 PM CDT): Ongoing PT/OT/CURING ROOM WORKER with generalized weakness, aphasia and R sided facial droop, follows some simple commands, continue statin and eliquis; monitor for fall risk given intermittent agitation; no new meds today but may need PRN due to fall risk Assessment & Plan (01/25/2024 11:13 AM CDT): Mobility is improving now at times getting out of bed without help, continue to monitor for fall risk, PT/OT/CURING ROOM WORKER; continue statin and eliquis Assessment & Plan (01/18/2024 5:52 PM CDT): Ongoing R sided weakness, R sided facial droop, aphasia; reports some improvement in spontaneous movement and mumbling. Continue asa, statin, eliquis; of note has documented statin intolerance, will need to find out specifics Continue PT/OT CURING ROOM WORKER , tube feeds for now with plans for repeat video swallow Type 2 diabetes mellitus with renal complication 01/18/2024 Assessment & Plan (04/09/2024 1:54 PM CHILDREN COUNSELOR): Glucose logs reviewed and stable, continue HS lantus and mealtime SSI, will try to DC SSI prior to DC home Assessment & Plan (04/06/2024 8:06 PM CHILDREN COUNSELOR): Stable, continue HS lantus and mealtime SSI, [...] 10/06/2022 Assessment & Plan (04/28/2024 2:28 PM CHILDREN COUNSELOR): Rate controlled, continue metoprolol, amiodarone, eliquis F/u cardiology dr wiley Assessment & Plan (04/13/2024 12:46 PM CHILDREN COUNSELOR): Rate controlled on exam; continue metoprolol, amiodarone, Eliquis ; no recent falls Assessment & Plan (04/06/2024 8:06 PM CHILDREN COUNSELOR): Rate controlled; continue metoprolol, amiodarone, Eliquis Assessment & Plan (03/31/2024 2:29 PM CHILDREN COUNSELOR): Rate controlled on metoprolol, amiodarone; continue b.i.d. Eliquis Assessment & Plan (03/20/2024 8:09 PM CHILDREN COUNSELOR): Stable on metoprolol, amiodarone and eliquis, conitnue [...] 10/06/2022 Assessment & Plan (04/28/2024 2:26 PM CHILDREN COUNSELOR): Continue treatments outpatient MWF, epogen on HD days, f/u with nephrology Assessment & Plan (04/09/2024 1:54 PM CHILDREN COUNSELOR): Tolerating HD MWF, at times using p.r.n. lorazepam with HD treatment, anxiety during access. Monitor electrolytes and weight Continue Epogen Assessment & Plan (04/06/2024 8:08 PM CHILDREN COUNSELOR): Continue HD MWF, p.r.n. lorazepam with HD treatment. Monitor electrolytes and weight Continue Epogen Assessment & Plan (03/31/2024 2:26 PM CHILDREN COUNSELOR): Continue HD MWF, continues to use p.r.n. lorazepam with HD treatments; daughter states this is helping,. Monitor electrolytes and weight Continue Epogen Assessment & Plan (03/20/2024 8:08 PM CHILDREN COUNSELOR): Continue HD MWF, continue to monitor electrolytes and weight, may use p.r.n. lorazepam with HD treatments; no reports of recent agitation with treatments Assessment & Plan (03/15/2024 10:52 AM CHILDREN COUNSELOR): Continue HD MWF, continue to monitor electrolytes [...] 3:59 PM CDT): Receiving treatments MWF at [facility], intermittent anxiety, increase zyprexa to daily, [...] 5:55 PM CDT): Continue treatments MWF at [facility], TID calcium acetate, nephrology following, nepro tube feeds ordered, starting on jevity on admission due to no nepro available Assessment & Plan (01/18/2024 7:41 AM CDT): Continue with dialysis 3 times a week. Continue calcium acetate. Labs with dialysis. Preoperative cardiovascular examination 09/20/19 22 Chronic heart failure with preserved ejection fr action 07/02/2019 Assessment & Plan (04/28/2024 2:26 PM CHILDREN COUNSELOR): Stable, continue metoprolol, monitor weights with HD Assessment & Plan (03/20/2024 8:08 PM CHILDREN COUNSELOR): Stable on exam, continue metoprolol, monitor I/O, [...] 02/04 Assessment & Plan (04/06/2024 8:06 PM CHILDREN COUNSELOR): Weight is stable since rehab admission, continue exercise as tolerated, RD following Assessment & Plan (03/20/2024 8:09 PM CHILDREN COUNSELOR): Mobility is improving, recently stopped TF and [...] 02/04 Assessment & Plan (04/13/2024 12:48 PM CHILDREN COUNSELOR): Stable/compensated, continue HD treatments, weekly weights, metoprolol, statin amio, eliquis Assessment & Plan (03/20/2024 8:08 PM CHILDREN COUNSELOR): Stable on metoprolol and amiodarone, continue HD [...] associated with type 2 diabetes mellitus ([facility]) 05/20/2013 Overview (08/11/2016): DMII WO CMP UNCNTRLD Assessment & Plan (04/13/2024 12:48 PM CHILDREN COUNSELOR): Well controlled on lantus 18 units hs with mealtime SSI, continue accuchecks ac and hs Assessment & Plan (03/15/2024 10:54 AM CHILDREN COUNSELOR): Glucose logs reviewed continue lantus 18 units [...] NOS Assessment & Plan (04/28/2024 2:28 PM CHILDREN COUNSELOR): Continue Lantus 18 units HS with mealtime SSI and daughter will assist with med administration Bp stable on metoprolol, monitor for BP goal ,140/<90 Continue accuchecks ac and hs Assessment & Plan (03/31/2024 2:28 PM CHILDREN COUNSELOR): Continue Lantus 18 units HS with mealtime SSI, glucose 236 this a.m., evening glucose 170, continue diabetic diet. BP stable on metoprolol Assessment & Plan (03/15/2024 10:53 AM CHILDREN COUNSELOR): BP stable on metoprolol 50mg daily, continue [...] NOS Assessment & Plan (04/13/2024 12:51 PM CHILDREN COUNSELOR): Subclinical hypothyroidism with TSH trending up to 92, encourage appropriate administration of medication in early a.m. on empty stomach, Synthroid increased to 200 mcg daily at previous visit with plan to repeat ths in 6 weeks, T3 and T4 normal Assessment & Plan (03/31/2024 2:30 PM CHILDREN COUNSELOR): Subclinical hypothyroidism with TSH trending up to 92, encourage appropriate administration of medication in early a.m. on empty stomach, Synthroid increased to 200 mcg daily Assessment & Plan (03/20/2024 8:09 PM CHILDREN COUNSELOR): Inpatient workup with Tsh elevated with normal t4, ensure medication administration appropriate early am on empty stomach; repeat TSH this week Assessment & Plan (03/15/2024 10:54 AM CHILDREN COUNSELOR): Inpatient workup with Tsh elevated with normal [...] drink = 0.6 oz pur e alcohol) [facility] Utilities Answer Date Recorded In the past 12 months has [employer] gas, oil, or water [employer] threatened to shut off services in your [...] often do you attend chur ch or church services? Never 02/26/2024 Do you belong to any clubs o r organizations such as buddhism groups, unions, fraternal or athletic groups, or [...] place to sleep or slept in a mcc (including now)? No 05/13/2021 Housing Stability Vital Sign Answer Yonathan e Recorded In the last 12 months, was t here a time when you were not able to pay the mortgage or rent on time? No 02/26/2024 In the past 12 months, how m any times have you moved where you were living? 0 02/26/2024 At any time in the past 12 m [facility], were you homeless or living in a mcc (including now)? No 02/26/2024 Personal Safety Answer Date Recorded Have you ever been in or are you currently in a harmful physical or emotional relationship or is someone making you feel afraid or unsafe? Denies 02/25/2024 Comments No Sex and Gender Information Value Date Recorded Sex Assigned at Not on file Legal Sex Female 10:22 AM CHILDREN COUNSELOR Gender Identity Not on file Sexual Orientation Not on file Last Filed Vital Signs Vital Sign Reading Time Taken Comments Blood Pressure 120/66 07/01/2024 9:38 AM CHILDREN COUNSELOR Pulse 55 07/01/2024 9:38 AM CHILDREN COUNSELOR Temperature 36.5 C (97.7 F) 03/03/2024 11:40 AM CDT Respiratory Rate 22 03/05/2024 8:31 AM CDT Oxygen Saturation 97% 07/01/2024 9:38 AM CHILDREN COUNSELOR Inhaled Oxygen Concentration - - Weight 89.7 kg (197 lb 11.2 oz) 07/01/2024 9:38 AM CHILDREN COUNSELOR Height 162.6 cm (5' 4) 07/01/2024 9:38 AM CHILDREN COUNSELOR Body Mass Index 33.94 07/01/2024 9:38 AM CHILDREN COUNSELOR Results * POCT lipid panel (07/01/2024 9:57 AM CHILDREN COUNSELOR) Cholesterol, POC 138 mg/dL Comment:GLU = 176 HDL, POC 17 mg/dL Triglycerides, POC 168 mg/dL LDL Cholesterol POC 88 mg/dL Chol/HDL Ratio, POC 5.2 Non-HDL Cholesterol, POC 121 mg/dL Cholesterol Total, POC 138 mg/dL Capillary blood 07/01/2024 9 :57 AM CHILDREN COUNSELOR us Uriel Gillette MD POINT OF CARE [...] LAB BLOOD ORDERABLES Final Resu lt [facility] [id number] [facility] Department [place] [address] * (ABNORMAL) Hemoglobin A1c (02/27/2024 5:59 AM CDT) Hgb A1C 7.5(H) 4.0 - 5.6 % Estimated Average Glucose 169 mg/dL [facility] Comment: The ADA recommends reporting an estimated Average Glucose (eAG) with all Hemoglobin A1c results using the equation derived from a study of 507 normal and diabetic adults. Minority populations were underrepresented and children were not included. (Diabetes Care 31:7161-6632, 2008). The eAG is not equivalent to a fasting glucose. Blood 02/27/2024 5:59 AM CDT 02/27/2024 7:11 AM CDT Asif Delgadillo MD LAB BLOOD ORDERABLES Final Re sult Performing Organization Address City/[facility]/ZIP Co de Phone Number [facility] [phone] [facility] Department [place] [address] * Hepatitis panel, acute (05/08/2022 3:59 PM CHILDREN COUNSELOR) Hep A IgM Nonreactive Nonreactive [facility] last revised on 2019. HepBsAg Nonreactive Nonreactive [facility] Blood 05/08/2022 3:59 PM CHILDREN COUNSELOR 05/08/2022 3:59 PM CHILDREN COUNSELOR us Mellissa Garcia DO LAB MICROBIOLOGY - GENERAL ORD ERABLES Final Result Performing Organization Address City/[facility]/ZIP Co de Phone Number [facility] [address] Department [place] [address] from Last 3 Months or Most Recently Relevant to Health Maintenance
[2025-02-10 02:10] LABS: Add Urine Microscopic? YES; Appearance Urine Turbid (Clear); Glucose Urine UA Negative (Negative); Leukocyte Esterase Ur 3+ LEU/UL (Negative); Need Manual Microscopic Reviewed; Nitrate Urine Negative (Negative); Specific Grav Ur 1.017 (1.001-1.035)
[2025-02-10 02:40] LABS: Magnesium 1.9 mg/dL (1.6-2.3)
[2025-02-10 02:51] LABS: Troponin I 0.025 ng/mL (0.000-0.034)
[2025-02-10 02:57] LABS: Procalcitonin 0.1 ng/mL
--- NOTE | 2025-02-10 03:18 | ED.GENADULT ---
HPI - General Adult General Chief complaint: Weakness Stated complaint: INCREASING GENERALIZED WEAKNESS Time Seen by Provider: 02/10/25 01:33 History of Present Illness HPI narrative: Patient 74-year-old female who presents emergency department with chief complaint of generalized weakness. Patient has history of incontinence of bowel and bladder and has had a prior stroke the patient has difficulty communicating due to prior stroke. The patient has been very restless and they urine is that she has been more tired than normal. Related Data Home Medications ?Medication ?Instructions ?Recorded ?Confirmed ?Last Taken ?Type insulin aspart U-100 100 unit/mL See Rx Instructions .Route .COMPLEX 05/20/24 12/23/24 Unknown History (3 mL) subcutaneous pen (Novolog FlexPen U-100 Insulin aspart) amiodarone 200 mg tablet 200 mg PO QAM 09/02/24 12/23/24 Unknown History insulin glargine 100 unit/mL (3 18 unit subcut QPM 09/02/24 12/23/24 Unknown History mL) subcutaneous pen (Lantus Solostar U-100 Insulin) ropinirole 2 mg tablet 0.5 mg PO Q12H 09/02/24 12/23/24 Unknown History calcium acetate 667 mg tablet 667 mg PO ONCE 11/04/24 12/23/24 Unknown History Allergies Allergy/AdvReac Type Severity Reaction Status Date / Time nickel Allergy Intermediate hives and Verified 01/27/25 15:35 itchy rash Sulfa (Sulfonamide Allergy Intermediate Urticaria Verified 01/27/25 15:35 Antibiotics) and hives Calcium Channel Blocking AdvReac Intermediate STATES Verified 01/27/25 15:35 Agents-Dih CANNOT TAKE SINCE SHE HAS ASTHMA diphenhydramine AdvReac Intermediate restless Verified 01/27/25 15:35 legs nifedipine AdvReac Intermediate palpitation Verified 01/27/25 15:35 s Frfhdsu-KTS-WeM Reductase AdvReac Intermediate muscle Verified 01/27/25 15:35 Inhibitor (Xpwbist-Brx-Umc cramps Reductase Inhibitor) Review of Systems Review of Systems: A 10 system review of systems was completed on the patient and is negative except for what is stated in the HPI. Nursing and ancillary documentation was reviewed. 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 Paroxysmal atrial fibrillation Bilateral primary osteoarthritis of knee Renal osteodystrophy DVT of lower extremity (deep venous thrombosis) Asthma-COPD overlap syndrome Left-sided cerebrovascular accident (CVA) (01/04/24) With residual left-sided visual neglect, profound expressive aphasia and right-sided hemiplegia ESRD on hemodialysis (02/17/22) Chronic anticoagulation Obstructive sleep apnea Hypothyroidism Insulin dependent type 2 diabetes mellitus Generalized anxiety disorder Chronic obstructive pulmonary disease Chronic diastolic (congestive) heart failure Coronary artery disease involving elem heart without angina pectoris Depression GERD without esophagitis Peripheral polyneuropathy Surgical History Surgical History History of tracheostomy (04/24/22) With subsequent removal History of cataract extraction History of tonsillectomy History of cholecystectomy History of gastrostomy tube placement and removal Family History Family History Father Hypertension Family history of coronary artery disease Sibling Hypertension Family history of coronary artery disease Mother Cerebrovascular accident Other Asthma Depression Family history of Alzheimer's disease Family history of arthritis Family history of cardiovascular disease Family history of lymphoma Family history of obesity Family history of seizure disorder Social History Social History Social History: Surrogate medical decision maker: Anjum (spouse) or Gwen (daughter) Kyra. Code status: Full code. Smoking packs per day: 2 Smoking cigarettes per day: 40.0 Years smoked: 30 Smoking pack-years: 60.00 Smoking status: Former smoker Second hand tobacco smoke exposure: No Alcohol intake: never Alcohol use details: special occasions Substance use: former Substance use type: marijuana Last use: 01/05/23 Do You Feel Safe in your Home?: Yes Lack of Transportation: No Lack of Food: Never True Current Housing: I Have Housing Concerned About Future Housing: No Difficulty Paying Gas/Electric Bills: No Difficulty Paying for Meds: No Currently Unemployed: No Education: High School Diploma/GED Difficulty w/ Childcare or Family Care: No Living arrangements: with family Occupation/Education: retired Spiritual care concerns: No Exam Narrative: GENERAL: Well-appearing, well-nourished, and in no acute distress. HEAD: Normocephalic, atraumatic. EYES: PERRLA and EOMI. ENT: Nares clear, no rhinorrhea or epistaxis. Mucous membranes moist. NECK: Supple. CHEST: Clear to auscultation. No respiratory distress. HEART: Regular rate and rhythm. No murmur heard. Normal peripheral pulses. ABDOMEN: Soft, nontender, nondistended, normal active bowel sounds. EXTREMITIES: Normal range of motion. No edema. SKIN: Warm, dry, no rash. NEURO: No new focal deficits patient has chronic right-sided weakness and right-sided facial droop. Alert and oriented to baseline patient has expressive aphasia. PSYCH: Normal mood and affect. Course Vital Signs Vital signs: Vital Signs Temperature 37.7 C H 02/09/25 22:49 Pulse Rate 67 02/09/25 22:49 Respiratory Rate 20 02/09/25 22:49 Pulse Oximetry 97 02/09/25 22:49 Oxygen Delivery Room Air 02/09/25 22:49 Temperature 37.1 C 02/10/25 01:02 Pulse Rate 68 02/10/25 01:02 Respiratory Rate 16 02/10/25 01:02 Blood Pressure 163/77 H 02/10/25 01:02 Pulse Oximetry 98 02/10/25 01:02 Oxygen Delivery Room Air 02/09/25 22:49 Medical Decision Making [facility] Narrative Medical decision making narrative: Differential diagnosis includes UTI, pyelonephritis, electrolyte abnormality, pneumonia, Laboratory studies were obtained showed white count of 5.8 electrolytes showed chronic renal insufficiency with BUN of 25 and a creatinine of 3.74 patient was 3.46 in September of this year Lactic acid was 1.2 Troponin was 0.025 CRP was 0.8 procalcitonin 0.1 urinalysis was turbid with greater than 100 white blood cells and 3+ leukocyte esterase 1+ bacteria COVID flu RSV were negative Chest x-ray showed no focal infiltrate The patient was started on Rocephin it was discussed with the patient's family outpatient versus inpatient admission due to the patient being weaker than normal and her being her primary caregiver the patient was started on Rocephin and plan will be to admit the patient Vital Signs Vital Signs: Vital Signs Temperature 37.7 C H 02/09/25 22:49 Pulse Rate 67 02/09/25 22:49 Respiratory Rate 20 02/09/25 22:49 Pulse Oximetry 97 02/09/25 22:49 Oxygen Delivery Room Air 02/09/25 22:49 Temperature 37.1 C 02/10/25 01:02 Pulse Rate 68 02/10/25 01:02 Respiratory Rate 16 02/10/25 01:02 Blood Pressure 163/77 H 02/10/25 01:02 Pulse Oximetry 98 02/10/25 01:02 Oxygen Delivery Room Air 02/09/25 22:49 Lab Data 02/10/25 00:58 02/10/25 00:58 Labs: Lab Results 02/10/25 02/10/25 Range/Units 00:58 01:51 WBC 5.8 (4.5-10.0) K/mm3 RBC 3.22 L (4.2-5.4) M/mm3 Hgb 8.8 L (12.0-15.0) g/dL Hct 29.3 L (37.0-47.0) % MCV 91.0 (80-100) fl MCH 27.3 (26-34) pg MCHC 30.0 L (32-36) g/dl RDW 18.8 H (11.5-14.5) % Plt Count 194 (150-375) k/mm3 MPV 10.8 H (7.4-10.4) fl Immature Gran % (Auto) Not Reportable Neut % (Auto) Not Reportable Lymph % (Auto) Not Reportable [place] % (Auto) Not Reportable Eos % (Auto) Not Reportable Baso % (Auto) Not Reportable Lymph # (Auto) Not Reportable [place] # (Auto) Not Reportable Eos # (Auto) Not Reportable Baso # (Auto) Not Reportable Abs Immat Gran (auto) Not Reportable Absolute Neuts (auto) Not Reportable Absolute Nucleated RBC Not Reportable Total Counted 100 Neutrophils % (Manual) 61 (46-73) % Band Neutrophils % 3 (0-6) % Lymphocytes % (Manual) 24.0 (18-44) % Monocytes % (Manual) 6 (3-9) % Eosinophils % (Manual) 6 H (0-4) % Nucleated RBC % Not Reportable Abs Neuts (Manual) 3.71 (1.3-6.7) K/mm3 Abs Lymphs (Manual) 1.39 (1.1-4.5) K/mm3 Abs Monocytes (Manual) 0.34 (0.1-0.90) K/mm3 Absolute Eos (Manual) 0.34 (0.02-0.50) K/mm3 Platelet Estimate Adequate (Adequate) Hypochromasia 1+ Anisocytosis 1+ Microcytosis 1+ (NORMAL) Schistocytes None seen PT 18.7 H (11.1-14.7) Seconds INR 1.6 APTT 35.3 (22.3-36.8) Seconds Sodium 137 (137-145) mmol/L Potassium 4.2 (3.4-5.0) mmol/L Chloride 95 L (98-107) mmol/L Carbon Dioxide 31 H (22-30) mmol/L Anion Gap 11 (4-12) mmol/L BUN 25 H (7-17) mg/dL Creatinine 3.74 H (0.7-1.0) mg/dL Estim Creat Clear Calc 13 ml/min Estimated GFR 12 L (59 - ) Glucose 192 H (65-110) mg/dL Lactic Acid 1.2 (0.7-2.0) mmol/L Calcium 8.1 L (8.4-10.2) mg/dL Magnesium 1.9 (1.6-2.3) mg/dL Total Bilirubin 0.7 (0.2-1.3) mg/dL AST 28 (14-36) U/L ALT 15 (6-35) U/L Alkaline Phosphatase 101 (38-126) U/L Troponin I 0.025 (0.000-0.034) ng/mL C-Reactive Protein 0.8 (<1.0) mg/dL Total Protein 7.4 (6.3-8.2) g/dL Albumin 3.7 (3.5-5.1) g/dL Lipase 56 (23-300) U/L Procalcitonin 0.1 ng/mL Urine Color Dark yellow (Yellow) Urine Appearance Turbid H (Clear) Urine pH 6.5 (5.0-9.0) Ur Specific [place] 1.017 (1.001-1.035) Urine Protein 3+ H (Negative) mg/dL Urine Glucose (UA) Negative (Negative) mg/dL Urine Ketones Trace H (Negative) mg/dL Ur Blood (Man) Trace (Negative) Urine Nitrate Negative (Negative) Urine Bilirubin Negative (Negative) Urine Urobilinogen 1.0 (<2.0) mg/dL Add Ur Microanalysis Reviewed Leukocyte Esterase Rfl 3+ H (Negative) ERICK/UL Urine RBC 11-20 H (0-2) /hpf Urine WBC >100 H (0-3) /hpf Ur Squamous Epith Cells Moderate (Few) /hpf Urine Bacteria 1+ /hpf Urine Casts 6-10 Influenza A (RT-PCR) Negative (Negative) Influenza B (RT-PCR) Negative (Negative) RSV (RT-PCR) Negative (Negative) SARS-CoV-2 RNA (RT-PCR) Negative (Negative) Discharge Plan Discharge Clinical Impression: Generalized weakness, Acute UTI Patient Disposition: Still a Patient Condition: Stable Patient Language: Other Prescriptions: No Action insulin aspart U-100 [Novolog FlexPen U-100 Insulin] 100 unit/mL (3 mL) insulin pen See Rx Instructions .ROUTE .COMPLEX MDD 60 Rx Instructions: sliding scale albuterol sulfate [Ventolin HFA] 90 mcg/actuation HFA aerosol inhaler See Rx Instructions .ROUTE .COMPLEX Qty: 18 6RF Dose Instruction: INHALE 2 PUFFS BY MOUTH 4 TIMES DAILY NEEDED FOR SHORTNESS OF BREATH OR WHEEZING. Rx Instructions: INHALE 2 PUFFS BY MOUTH 4 TIMES DAILY NEEDED FOR SHORTNESS OF BREATH OR WHEEZING. metoprolol succinate 50 mg tablet extended release 24 hr 50 mg PO QAM Qty: 90 0RF montelukast 10 mg tablet 10 mg PO DAILY Qty: 90 3RF calcium acetate 667 mg tablet 667 mg PO ONCE escitalopram oxalate [Lexapro] 5 mg tablet 5 mg PO DAILY Qty: 90 4RF amiodarone 200 mg tablet 200 mg PO QAM ropinirole 2 mg tablet 0.5 mg PO Q12H insulin glargine [Lantus Solostar U-100 Insulin] 100 unit/mL (3 mL) insulin pen 18 unit subcut QPM Rx Instructions: INJECT 18 UNITS UNDER THE SKIN AT BEDTIME amoxicillin-pot clavulanate 875-125 mg tablet 1 tablet PO Q12H Qty: 14 0RF albuterol sulfate 2.5 mg /3 mL (0.083 %) solution for nebulization 2.5 mg inhalation Q4-6H PRN (Reason: shortness of breath or wheezing) Qty: 90 6RF budesonide-formoterol 160-4.5 mcg/actuation HFA aerosol inhaler 2 puff inhalation Q12H Qty: 10.2 6RF Eliquis 2.5 mg tablet See Rx Instructions PO .COMPLEX Qty: 180 2RF Dose Instruction: TAKE 1 TABLET TWICE DAILY Rx Instructions: TAKE 1 TABLET TWICE DAILY orally ; fluticasone propionate 50 mcg/actuation spray,suspension 2 spray intranasal DAILY PRN (Reason: nasal congestion) Qty: 16 2RF trazodone 50 mg tablet 50 mg PO QHS Qty: 30 5RF atorvastatin [Lipitor] 20 mg tablet 20 mg PO HS Qty: 90 1RF hydralazine 25 mg tablet 25 mg PO TID Qty: 270 0RF isosorbide mononitrate 30 mg tablet extended release 24 hr 30 mg PO DAILY Qty: 90 0RF levothyroxine 175 mcg tablet See Rx Instructions .ROUTE .COMPLEX Qty: 90 1RF Dose Instruction: Take 1 tablet by mouth once daily Rx Instructions: Take 1 tablet by mouth once daily Cholestyramine Light 4 gram powder in packet 4 g PO BID Qty: 60 3RF Rx Instructions: administer w/meal; avoid other meds within 1hr before or 4-6hr after dose lorazepam [Ativan] 0.5 mg tablet 0.5 mg PO BID PRN (Reason: anxiety) Qty: 60 0RF Follow-up/Referrals: Rikki Amezquita MD [Primary Care Provider, Family Practice]
[2025-02-10] MEDS: cefTRIAXone 1 GM in SODIUM CHLORIDE 0.9% IV 50 ML 100 ML IVPB (03:56)
--- NOTE | 2025-02-10 04:32 | PM.IMHP ---
H&P: HPI History of Present Illness Date/Time: 02/10/25 04:32 Chief Complaint: Weakness Narrative: 74-year-old female brought in by her with the patient lives with and is care for by as she is reported to be weak. She has a PMH of diabetes mellitus, neuropathy, ESRD on dialysis MWF followed by Dr. 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 Of note, the patient was taken to her primary care on 01/27/2025 as she was reported to be having explosive diarrhea. At this point it was noted she was on day 2 of antibiotics for UTI, unclear which antibiotic. Patient had stool testing and C diff ordered but it appears to C diff test was canceled, reports her stool improved and is soft, no more diarrhea. The GI specimen obtained on 02/03/2025 negative for Shiga toxin, Campylobacter, Salmonella/shigella. On arrival to [facility] ER on 02/10/2025 the patient is at her baseline aside from reported weakness by the . The denies any visualized symptoms upon comprehensive review including chest pain, shortness of breath, increased urinary frequency, pain. Laboratory workup reveals a normal WBC at 5800, INR 1.6, serum creatinine 3.74, urinalysis 3+ protein, ketones, leukocyte esterase, 11-20 RBC, greater than 100 WBC, moderate squamous cells, 1+ bacteria. This is similar to previous urinalysis on 01/25/2025 except there are moderate squamous cells now. Urine culture from 01/25/2025 demonstrates E coli pansensitive. Patient was given ceftriaxone 1 g IV. Noted 1 time temperature of a 100? F. 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 Paroxysmal atrial fibrillation Bilateral primary osteoarthritis of knee Renal osteodystrophy DVT of lower extremity (deep venous thrombosis) Asthma-COPD overlap syndrome Left-sided cerebrovascular accident (CVA) (01/04/24) With residual left-sided visual neglect, profound expressive aphasia and right-sided hemiplegia ESRD on hemodialysis (02/17/22) Chronic anticoagulation Obstructive sleep apnea Hypothyroidism Insulin dependent type 2 diabetes mellitus Generalized anxiety disorder Chronic obstructive pulmonary disease Chronic diastolic (congestive) heart failure Coronary artery disease involving crow heart without angina pectoris Depression GERD without esophagitis Peripheral polyneuropathy Surgical History Surgical History History of tracheostomy (04/24/22) With subsequent removal History of cataract extraction History of tonsillectomy History of cholecystectomy History of gastrostomy tube placement and removal Family History Family History Father Hypertension Family history of coronary artery disease Sibling Hypertension Family history of coronary artery disease Mother Cerebrovascular accident Other Asthma Depression Family history of Alzheimer's disease Family history of arthritis Family history of cardiovascular disease Family history of lymphoma Family history of obesity Family history of seizure disorder Social History Social History Social History: Surrogate medical decision maker: Anjum (spouse) or Gwen (daughter) Kyra. Code status: Full code. Smoking packs per day: 2 Smoking cigarettes per day: 40.0 Years smoked: 30 Smoking pack-years: 60.00 Smoking status: Former smoker Second hand tobacco smoke exposure: No Alcohol intake: never Alcohol use details: special occasions Substance use: former Substance use type: marijuana Last use: 01/05/23 Do You Feel Safe in your Home?: Yes Lack of Transportation: No Lack of Food: Never True Current Housing: I Have Housing Concerned About Future Housing: No Difficulty Paying Gas/Electric Bills: No Difficulty Paying for Meds: No Currently Unemployed: No Education: High School Diploma/GED Difficulty w/ Childcare or Family Care: No Living arrangements: with family Occupation/Education: retired Spiritual care concerns: No Meds Home Medications and Allergies Home Medications ?Medication ?Instructions ?Recorded ?Confirmed ?Type albuterol sulfate 2.5 mg/3 mL 2.5 mg (3 mL) inhalation Q4-6H PRN 07/10/23 02/10/25 Rx (0.083 %) solution for nebulization shortness of breath or wheezing #90 mL Ventolin HFA 90 mcg/actuation See Rx Instructions .Route 05/20/24 02/10/25 Rx aerosol inhaler (albuterol sulfate) .COMPLEX #18 grams insulin aspart U-100 100 unit/mL See Rx Instructions .Route .COMPLEX 05/20/24 02/10/25 History (3 mL) subcutaneous pen (Novolog FlexPen U-100 Insulin aspart) metoprolol succinate 50 mg 50 mg PO QAM #90 tabs 05/20/24 02/10/25 Rx tablet,extended release 24 hr montelukast 10 mg tablet 10 mg PO DAILY #90 tabs 07/04/24 02/10/25 Rx budesonide-formoterol HFA 160 2 puff inhalation Q12H #10.2 grams 07/17/24 02/10/25 Rx mcg-4.5 mcg/actuation aerosol inhaler apixaban 2.5 mg tablet (Eliquis) See Rx Instructions PO .COMPLEX 07/29/24 02/10/25 Rx #180 tabs amiodarone 200 mg tablet 200 mg PO QAM 09/02/24 02/10/25 History insulin glargine 100 unit/mL (3 18 unit subcut QPM 09/02/24 02/10/25 History mL) subcutaneous pen (Lantus Solostar U-100 Insulin) ropinirole 2 mg tablet 0.5 mg PO Q12H 09/02/24 02/10/25 History fluticasone propionate 50 2 spray intranasal DAILY PRN nasal 10/20/24 02/10/25 Rx mcg/actuation nasal congestion #16 grams spray,suspension atorvastatin 20 mg tablet (Lipitor) 20 mg PO HS #90 tabs 11/03/24 02/10/25 Rx trazodone 50 mg tablet 50 mg PO QHS #30 tabs 11/03/24 02/10/25 Rx escitalopram oxalate 5 mg tablet 5 mg PO DAILY #90 tabs 11/04/24 02/10/25 Rx (Lexapro) hydralazine 25 mg tablet 25 mg PO TID #270 tabs 12/04/24 02/10/25 Rx isosorbide mononitrate 30 mg 30 mg PO DAILY #90 tabs 12/04/24 02/10/25 Rx tablet,extended release 24 hr levothyroxine 175 mcg tablet See Rx Instructions .Route 01/27/25 02/10/25 Rx .COMPLEX #90 tabs cholestyramine 4 gram oral powder 4 g PO BID #60 ea 02/02/25 02/10/25 Rx for suspension in a packet (Cholestyramine Light) lorazepam 0.5 mg tablet (Ativan) 0.5 mg PO BID PRN anxiety #60 tabs 02/02/25 02/10/25 Rx Allergies Allergy/AdvReac Type Severity Reaction Status Date / Time nickel Allergy Intermediate hives and Verified 01/27/25 15:35 itchy rash Sulfa (Sulfonamide Allergy Intermediate Urticaria Verified 01/27/25 15:35 Antibiotics) and hives Calcium Channel Blocking AdvReac Intermediate STATES Verified 01/27/25 15:35 Agents-Dih CANNOT TAKE SINCE SHE HAS ASTHMA diphenhydramine AdvReac Intermediate restless Verified 01/27/25 15:35 legs nifedipine AdvReac Intermediate palpitation Verified 01/27/25 15:35 s Jqudljl-BMO-TeF Reductase AdvReac Intermediate muscle Verified 01/27/25 15:35 Inhibitor (Pongvvl-Suq-Fjf cramps Reductase Inhibitor) Vital Signs Vital Signs - 24 hr 02/09/25 22:49 02/10/25 01:02 Temperature 100 F H 98.8 F Pulse Rate 67 68 Respiratory Rate 20 16 Blood Pressure 163/77 H Pulse Oximetry 97 98 Oxygen Delivery Room Air Exam Const: General: comfortable and no acute distress Other: Expressive aphasia HENMT: Mouth: Yes moist mucous membranes Eyes: Pupils: Equal, round and reactive pupils present Neck: Neck: supple Resp: Effort & Inspection: normal respiratory effort Other: Limited participation Cardio: Rate: regular rate Rhythm: regular rhythm GI: Inspection: non-distended GI Palp: Yes Soft to palpation and No Tenderness to palpation present (GI) Neuro: Other: Right-sided weakness H&P: Results Labs Labs: Short CBC 02/10/25 Range/Units 00:58 WBC 5.8 (4.5-10.0) K/mm3 Hgb 8.8 L (12.0-15.0) g/dL Hct 29.3 L (37.0-47.0) % Plt Count 194 (150-375) k/mm3 BMP 02/10/25 00:58 Sodium 137 Potassium 4.2 Chloride 95 L Carbon Dioxide 31 H BUN 25 H Creatinine 3.74 H Glucose 192 H Calcium 8.1 L Cardiac Enzymes 02/10/25 Range/Units 00:58 Troponin I 0.025 (0.000-0.034) ng/mL Liver Function 02/10/25 Range/Units 00:58 Total Bilirubin 0.7 (0.2-1.3) mg/dL AST 28 (14-36) U/L ALT 15 (6-35) U/L Alkaline Phosphatase 101 (38-126) U/L Albumin 3.7 (3.5-5.1) g/dL Urine 02/10/25 Range/Units 01:51 Urine Color Dark yellow (Yellow) Urine Appearance Turbid H (Clear) Urine pH 6.5 (5.0-9.0) Ur Specific [place] 1.017 (1.001-1.035) Urine Protein 3+ H (Negative) mg/dL Urine Glucose (UA) Negative (Negative) mg/dL Assessment and Plan Assessment and plan (1) Acute UTI: Code(s): N39.0 - Urinary tract infection, site not specified Status: Acute (2) ESRD on hemodialysis: Code(s): N18.6 - End stage renal disease; Z99.2 - Dependence on renal dialysis Status: Acute (3) Generalized weakness: Code(s): R53.1 - Weakness Status: Acute Plan 74-year-old female brought in by her with the patient lives with and is care for by as she is reported to be weak. She has a PMH of diabetes mellitus, neuropathy, ESRD on dialysis MWF followed by Dr. uDmont, CAD, CHF, AFib, hyperlipidemia, restless leg syndrome, hypothyroidism, history of CVA with right-sided deficits and expressive aphasia, GERD with Gongora's, history of esophageal stricture, depression and anxiety, COPD/asthma, history of DVT. Of note, the patient was taken to her primary care on 01/27/2025 as she was reported to be having explosive diarrhea. At this point it was noted she was on day 2 of antibiotics for UTI, unclear which antibiotic. Patient had stool testing and C diff ordered but it appears to C diff test was canceled, reports her stool improved and is soft, no more diarrhea. The GI specimen obtained on 02/03/2025 negative for Shiga toxin, Campylobacter, Salmonella/shigella. On arrival to [facility] ER on 02/10/2025 the patient is at her baseline aside from reported weakness by the . The denies any visualized symptoms upon comprehensive review including chest pain, shortness of breath, increased urinary frequency, pain. Laboratory workup reveals a normal WBC at 5800, INR 1.6, serum creatinine 3.74, urinalysis 3+ protein, ketones, leukocyte esterase, 11-20 RBC, greater than 100 WBC, moderate squamous cells, 1+ bacteria. This is similar to previous urinalysis on 01/25/2025 except there are moderate squamous cells now. Urine culture from 01/25/2025 demonstrates E coli pansensitive. Patient was given ceftriaxone 1 g IV. Noted 1 time temperature of a 100? F. ----- Patient's weakness is presumably be due to UTI. Continue ceftriaxone 1 g IV Q 24 hours. Follow-up urine culture. I reviewed the portable chest x-ray, there is mild increase in the right lower lobe marking/opacities. Her lungs are however clear albeit she does not participate well on the inspiratory exam. She has no respiratory symptoms. Add doxycycline 100 mg IV b.i.d for now. Patient last received dialysis on 02/09/2025. She is on Sunday schedule, nephrology consulted in the a.m.. Accu-Cheks a.c. HS with low-dose insulin sliding scale and hypoglycemia protocol. PT/OT for weakness. Ambulate with assistance, fall precautions. Medication reconciliation is pending, restart medications as appropriate and indicated. ----- Prior to admission the patient lives at home with her , she is dependent on him. She uses a walker for ambulatory assistance. They have home health. Saline lock IV. Modify Code: CPR yes, intubation no. Discussed with the about the generalized incompatibility of this code status with successful cardiopulmonary resuscitation. He would like to keep it as is for now. SCDs. Hospitalist [facility] Advance Care Plan I have confirmed that the patient's Advanced Care Plan is present, code status is documented, or surrogate decision maker is listed in patient medical record.: Yes Medication Reconciliation I have utilized all available resources to obtain, update and review the patients current medications (includes all prescriptions, OTC, herbals, cannabis, and nutritional supplements).: Yes
[2025-02-10] MEDS: DOXYCYCLINE IV 100 MG in SODIUM CHLORIDE 0.9% IV 100 ML IVPB ×2 (06:07→17:43)
--- NOTE | 2025-02-10 07:27 | P.PNIM_ITS ---
Progress Note: A&P Assessment and Plan (1) Acute UTI: Code(s): N39.0 - Urinary tract infection, site not specified Status: Acute Assessment and Plan: urinalysis 3+ protein, ketones, leukocyte esterase, 11-20 RBC, greater than 100 WBC, moderate squamous cells, 1+ bacteria. This is similar to previous urinalysis on 01/25/2025 except there are moderate squamous cells now urine culture from 01/25/2025 grew pansensitive e. coli f/u urine cultures f/u blood cultures continue IV ceftriaxone AM labs (2) ESRD on hemodialysis: Code(s): N18.6 - End stage renal disease; Z99.2 - Dependence on renal dialysis Status: Acute Assessment and Plan: nephrology consulted hemodialysis per nephrology (3) Generalized weakness: Code(s): R53.1 - Weakness Status: Acute Assessment and Plan: Fall precautions PT/><OT consult Plan PT/OT for weakness. Ambulate with assistance, fall precautions. Medication reconciliation is pending, restart medications as appropriate and indicated. Prior to admission the patient lives at home with her , she is dependent on him. She uses a walker for ambulatory assistance. They have home health. Saline lock IV. Modify Code: CPR yes, intubation no. Discussed with the about the generalized incompatibility of this code status with successful cardiopulmonary resuscitation. He would like to keep it as is for now. SCDs. Subjective Date/time seen: 02/10/25 07:27 Interval history: Patient seen for a follow up visit. Patient appears comfortable. Patient has expressive aphasia and does give some single word answers but unsure if they are appropriate or not. Continue IV antibiotics. Nephrology consulted for hemodialysis. Follow up urine cultures and blood cultures. Review of Systems Review of Systems: All systems reviewed & are unremarkable except as noted in HPI and below (Subjective) Exam Const: General: comfortable and no acute distress Other: Expressive aphasia HENMT: Mouth: Yes moist mucous membranes Eyes: Pupils: Equal, round and reactive pupils present Neck: Neck: supple Resp: Effort & Inspection: normal respiratory effort Other: Limited participation Cardio: Rate: regular rate Rhythm: regular rhythm GI: GI Palp: Yes Soft to palpation Auscultation: normal bowel sounds Skin: General skin exam: normal color and no rashes or lesions noted Neuro: Cranial nerves: Yes Equal, round and reactive pupils present Other: Right-sided weakness Extrem: General: normal to inspection Objective Data Vital Signs Vital Signs: Vital Signs - 24 hr 02/09/25 22:49 02/10/25 01:02 02/10/25 01:42 Temperature 100 F H 98.8 F Pulse Rate 67 68 62 Respiratory Rate 20 16 19 Blood Pressure 163/77 H Pulse Oximetry 97 98 92 Oxygen Delivery Room Air 02/10/25 02:03 02/10/25 02:15 02/10/25 02:32 Temperature Pulse Rate 59 L 55 L 57 L Respiratory Rate 16 16 16 Blood Pressure Pulse Oximetry Oxygen Delivery 02/10/25 03:40 02/10/25 04:08 02/10/25 04:31 Temperature Pulse Rate 58 L 59 L 60 Respiratory Rate 17 16 15 Blood Pressure Pulse Oximetry 99 Oxygen Delivery 02/10/25 04:45 02/10/25 04:47 02/10/25 05:52 Temperature 98.1 F Pulse Rate 60 60 59 L Respiratory Rate 16 12 18 Blood Pressure 171/60 H 148/62 H Pulse Oximetry 96 Oxygen Delivery Intake/Output Intake/Output: Intake & Output 02/07/25 02/08/25 02/09/25 02/10/25 23:59 23:59 23:59 23:59 Intake Total 50 Balance 50 Meds/Results Medications: Active Medications Generic Name Dose Route Start Last Admin Trade Name Freq PRN Reason Stop Dose Admin Acetaminophen 650 mg 02/10/25 03:56 Acetaminophen 325 Mg Tablet PO Q4H PRN Mild Pain (1-3) or Fever Albuterol 0 puff 02/10/25 07:15 Albuterol Sulfate (*Sp) Aerosol 1 Puff INHALATION .COMPLEX ALINA Albuterol 2.5 mg 02/10/25 07:11 Albuterol Sulfate Neb 2.5 Mg/3 Ml Inh INHALATION Q4-6H PRN Shortness Of Breath Or Wheezing Amiodarone HCl 200 mg 02/10/25 09:00 Amiodarone Hcl 200 Mg Tablet PO QAM ALINA Apixaban 0 mg 02/10/25 07:15 Apixaban 2.5 Mg Tablet PO .COMPLEX ALINA Atorvastatin Calcium 20 mg 02/10/25 21:00 Atorvastatin 20 Mg Tablet PO HS ALINA Cholestyramine Resin 4 gm 02/10/25 09:00 Cholestyramine Light 4 Gm Powd.Pack PO BID ALINA Dextrose 12.5 gm 10/07/25 04:31 Dextrose 50% 25 Gm/50 Ml Syringe IV PUSH PRN PRN Hypoglycemia Protocol Escitalopram Oxalate 5 mg 02/10/25 09:00 Escitalopram Oxalate 5 Mg Tablet PO DAILY [facility] Fluticasone Propionate 2 spray 02/10/25 07:11 Fluticasone Propionate 0.05% Na Spr 16 Gm Btl (*Bkc) NASAL DAILY PRN Nasal Congestion Glucose 15 gm 02/10/25 04:31 Glucose Oral Gel 15 Gm Of Glucse In 37.5 Gm Tube PO PRN PRN Hypoglycemia Protocol Hydralazine HCl 25 mg 02/10/25 09:00 Hydralazine Hcl 25 Mg Tablet PO TID ALIAN Ceftriaxone Sodium 1 gm/ 50 mls @ 100 mls/hr 02/11/25 04:00 Sodium Chloride IVPB Q24H ALINA Dextrose 1,000 mls @ 100 mls/hr 02/10/25 04:31 Dextrose 5% 1,000 Ml IVPB PRN PRN Hypoglycemia Protocol Doxycycline Hyclate 100 mg/ 100 mls @ 100 mls/hr 02/10/25 05:00 02/10/25 06:07 Sodium Chloride IVPB 100 mls/hr Q12H ALINA Administration Insulin Aspart 2 - 5 units 02/10/25 08:00 Insulin Aspart (*Bkc) 100 Units/Ml SUB-Q TIDWM [facility] Protocol Insulin Aspart 1 - 2 units 02/10/25 21:00 Insulin Aspart (*Bkc) 100 Units/Ml SUB-Q HS [facility] Protocol Insulin Glargine 14 units 02/10/25 18:00 Insulin Glargine (*Bkc) 100 Units/Ml SUB-Q QPM [facility] Isosorbide Mononitrate 30 mg 02/10/25 09:00 Isosorbide Mononitrate 30 Mg Tab.Er.24h PO DAILY [facility] Non-Formulary Medication 2 puff 02/10/25 07:15 Budesonide-Formoterol INHALATION 03/12/25 07:14 Q12H [facility] Non-Formulary Medication 0 mcg 02/10/25 07:30 Levothyroxine .ROUTE 03/12/25 07:29 .COMPLEX [facility] Ondansetron HCl 4 mg 02/10/25 03:56 Ondansetron Inj 4 Mg/2 Ml Vial IV PUSH Q4H PRN Nausea Labs Labs: Laboratory Results - last 24 hr 02/10/25 02/10/25 00:58 01:51 WBC 5.8 RBC 3.22 L Hgb 8.8 L Hct 29.3 L MCV 91.0 MCH 27.3 MCHC 30.0 L RDW 18.8 H Plt Count 194 MPV 10.8 H Immature Gran % (Auto) Not Reportable Neut % (Auto) Not Reportable Lymph % (Auto) Not Reportable [place] % (Auto) Not Reportable Eos % (Auto) Not Reportable Baso % (Auto) Not Reportable Lymph # (Auto) Not Reportable [place] # (Auto) Not Reportable Eos # (Auto) Not Reportable Baso # (Auto) Not Reportable Abs Immat Gran (auto) Not Reportable Absolute Neuts (auto) Not Reportable Absolute Nucleated RBC Not Reportable Total Counted 100 Neutrophils % (Manual) 61 Band Neutrophils % 3 Lymphocytes % (Manual) 24.0 Monocytes % (Manual) 6 Eosinophils % (Manual) 6 H Nucleated RBC % Not Reportable Abs Neuts (Manual) 3.71 Abs Lymphs (Manual) 1.39 Abs Monocytes (Manual) 0.34 Absolute Eos (Manual) 0.34 Platelet Estimate Adequate Hypochromasia 1+ Anisocytosis 1+ Microcytosis 1+ Schistocytes None seen PT 18.7 H INR 1.6 APTT 35.3 Sodium 137 Potassium 4.2 Chloride 95 L Carbon Dioxide 31 H Anion Gap 11 BUN 25 H Creatinine 3.74 H Estim Creat Clear Calc 13 Estimated GFR 12 L Glucose 192 H Lactic Acid 1.2 Calcium 8.1 L Magnesium 1.9 Total Bilirubin 0.7 AST 28 ALT 15 Alkaline Phosphatase 101 Troponin I 0.025 C-Reactive Protein 0.8 Total Protein 7.4 Albumin 3.7 Lipase 56 Procalcitonin 0.1 Urine Color Dark yellow Urine Appearance Turbid H Urine pH 6.5 Ur Specific [place] 1.017 Urine Protein 3+ H Urine Glucose (UA) Negative Urine Ketones Trace H Ur Blood (Man) Trace Urine Nitrate Negative Urine Bilirubin Negative Urine Urobilinogen 1.0 Add Ur Microanalysis Reviewed Leukocyte Esterase Rfl 3+ H Urine RBC 11-20 H Urine WBC >100 H Ur Squamous Epith Cells Moderate Urine Bacteria 1+ Urine Casts 6-10 Influenza A (RT-PCR) Negative Influenza B (RT-PCR) Negative RSV (RT-PCR) Negative SARS-CoV-2 RNA (RT-PCR) Negative Quality VTE Prophylaxis VTE prophylaxis: pharmacologic ordered
[2025-02-10] MEDS: AMIODARONE HCL 200 MG TABLET PO (08:44)
[2025-02-10] MEDS: ESCITALOPRAM OXALATE 5 MG TABLET PO (08:48)
[2025-02-10] MEDS: METOPROLOL SUCCINATE EXT REL 50 MG TABCR PO (08:48)
[2025-02-10] MEDS: ISOSORBIDE MONONITRATE 30 MG TAB.ER.24H PO (08:48)
[2025-02-10] MEDS: LEVOTHYROXINE SODIUM 100 MCG, LEVOTHYROXINE SODIUM 75 MCG 175 MCG PO (08:48)
[2025-02-10] MEDS: MONTELUKAST SODIUM 10 MG TABLET PO (08:48)
[2025-02-10] MEDS: APIXABAN 2.5 MG TABLET PO ×2 (08:48→20:10)
--- NOTE | 2025-02-10 11:04 | P.CONNP_ITS ---
Assessment and Plan Assessment and plan (1) End stage renal disease: Code(s): N18.6 - End stage renal disease Status: Chronic Assessment and Plan: * HD tomorrow * continue M/W/F outpatient dialysis schedule * follow electrolytes, volume status, and clearance (2) UTI (urinary tract infection): Code(s): N39.0 - Urinary tract infection, site not specified Status: Acute Assessment and Plan: * admission UA highly suggestive * follow culture data * on antibiotics (3) Anemia: Code(s): D64.9 - Anemia, unspecified Status: Chronic Assessment and Plan: * due to ESRD * RADHA/Epogen with HD * follow trend of H/H (4) Hypertension: Qualifiers: Hypertension type: unspecified Qualified Code(s): I10 - Essential (primary) hypertension Code(s): I10 - Essential (primary) hypertension Status: Chronic Assessment and Plan: * running a bit high * resume home BP medications * adjust if needed * follow trend of hemodynamics (5) Generalized weakness: Code(s): R53.1 - Weakness Status: Acute Assessment and Plan: * due to #2 (?) * follow clinical symptoms * continue PT/OT (6) Type 2 diabetes mellitus with hyperglycemia: Qualifiers: Diabetes mellitus shelter insulin use: with shelter use Qualified Code(s): E11.65 - Type 2 diabetes mellitus with hyperglycemia; Z79.4 - FDC (current) use of insulin Code(s): E11.65 - Type 2 diabetes mellitus with hyperglycemia Status: Chronic Assessment and Plan: * follow accu-cheks * glycemic control per hospitalist I will continue to follow the patient with you while she remains hospitalized and make further recommendations as deemed necessary. Thank you for allowing me to participate in the care of this patient. L History of Present Illness Reason for Consult Consult date: 02/10/25 Reason for consult: end stage renal disease Chief Complaint Chief complaint: UTI, generalized weakness History of Present Illness Narrative: Most of the history that I have obtained is review the electronic medical record as well as discussion with the physician/nurses involved in the patient's care as is difficult to get a full and complete history from the patient due to her expressive aphasia secondary to her previous/history of CVAs. The patient is a 74-year-old female with a past medical history as outlined below who presented to [facility] Emergency Room for further evaluation of generalized weakness. The patient's brought her to the emergency room as seemed that she had been more restless and more fatigued than her baseline. Apparently, over the last couple of weeks, she has been having issues and problems with significant diarrhea. She saw her primary care physician at that time due to these complaints and there was a concern that her dietary intake may be response for this symptom. There was no associated foul odor to the stool, hematochezia, melena, abdominal pain, or associated vomiting. She was apparently on antibiotics at that time for a urinary tract infection that was diagnosed at a local urgent care center. C diff toxin assay was ordered but for some reason appears that it was canceled although the reported that her diarrhea has improved if not resolved; stool culture was apparently negative for any other infectious source of diarrhea. Nevertheless, due to her ongoing fatigue and weakness, her brought her to the emergency room for further assessment. According to the , the patient did not have any complaints of chest pain, shortness of breath, nausea, vomiting, or pain. Workup and evaluation in the emergency room demonstrated the patient be hemodynamically stable if not a tad hypertensive and afebrile although she did have 1 reading of 100? while she was in the ER. routine laboratory testing demonstrated white blood cell count of 5.8, hemoglobin 8.8, platelet count 194, sodium 137, potassium 4.2, bicarb 31, BUN 25, creatinine 3.74, glucose 192, calcium 8.1, magnesium 1.9, lactic acid 1.2, INR 1.6, normal LFTs, albumin 3.7, lipase 66, and a procalcitonin of 0.1. Her urinalysis was significant for 3+ protein, 3+ leukocyte esterase, turbid appearance, 11-20 red blood cells, greater than 100 white blood cells, 1+ bacteria and moderate squamous epithelial cells viral testing for influenza, RSV, and COVID were negative as well. Her chest x-ray demonstrated bibasilar airspace disease. Given her generalized weakness in the concern for possible urinary tract infection, appropriate cultures were obtained and she was initiated on IV antibiotics and subsequently admitted to the hospital for further evaluation therapy. Since her admission to the hospital, the patient appears to be at her baseline with regard to her mental status. She denies any acute complaints and seems comfortable although history is somewhat limited by her expressive aphasia as already mentioned above. Renal consultation was requested due to her end-stage renal disease. The patient normally dialyzes on a Sunday, Sunday, Sunday schedule at [facility] under the care of Dr. Jame Dumont. From a dialysis perspective, she has been doing reasonably well and compliant with her treatments. She does have issues and problems with significant fluid gains in between her dialysis treatments which can result in difficulty achieving her dry weight.. Her last dialysis treatment was yesterday (Sunday - 02/09) at her outpatient dialysis clinic and she is due for dialysis tomorrow. Currently, at the time my visit, she is resting comfortably in no apparent distress. Review of Systems 2 Review of Systems: As per HPI. 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 Paroxysmal atrial fibrillation Bilateral primary osteoarthritis of knee Renal osteodystrophy DVT of lower extremity (deep venous thrombosis) Asthma-COPD overlap syndrome Left-sided cerebrovascular accident (CVA) (01/04/24) With residual left-sided visual neglect, profound expressive aphasia and right-sided hemiplegia ESRD on hemodialysis (02/17/22) Chronic anticoagulation Obstructive sleep apnea Hypothyroidism Insulin dependent type 2 diabetes mellitus Generalized anxiety disorder Chronic obstructive pulmonary disease Chronic diastolic (congestive) heart failure Coronary artery disease involving [place] heart without angina pectoris Depression GERD without esophagitis Peripheral polyneuropathy Surgical History Surgical History History of tracheostomy (04/24/22) With subsequent removal History of cataract extraction History of tonsillectomy History of cholecystectomy History of gastrostomy tube placement and removal Family History Family History Father Hypertension Family history of coronary artery disease Sibling Hypertension Family history of coronary artery disease Mother Cerebrovascular accident Other Asthma Depression Family history of Alzheimer's disease Family history of arthritis Family history of cardiovascular disease Family history of lymphoma Family history of obesity Family history of seizure disorder Social History Social History Social History: Surrogate medical decision maker: Anjum (spouse) or Gwen (daughter) Kyra. Code status: Full code. Smoking packs per day: 1 Smoking cigarettes per day: 20.0 Years smoked: 17 Smoking pack-years: 17.00 Smoking status: Former smoker Tobacco type: cigarettes Second hand tobacco smoke exposure: No Smoking end date: 05/07/84 Alcohol intake: never Alcohol use details: special occasions Substance use: never Substance use type: does not use Last use: 01/05/23 Do You Feel Safe in your Home?: Yes Lack of Transportation: No Lack of Food: Never True Current Housing: I Have Housing Concerned About Future Housing: No Difficulty Paying Gas/Electric Bills: No Difficulty Paying for Meds: No Currently Unemployed: No Education: High School Diploma/GED Difficulty w/ Childcare or Family Care: No Living arrangements: with family Occupation/Education: retired Spiritual care concerns: No Meds Home Medications and Allergies Home Medications ?Medication ?Instructions ?Recorded ?Confirmed ?Type albuterol sulfate 2.5 mg/3 mL 2.5 mg (3 mL) inhalation Q4-6H PRN 07/10/23 02/10/25 Rx (0.083 %) solution for nebulization shortness of breat h or wheezing #90 mL Ventolin HFA 90 mcg/actuation See Rx Instructions .Rou te 05/20/24 02/10/25 Rx aerosol inhaler (albuterol sulfate) .COMPLEX #18 grams insulin aspart U-100 100 unit/mL See Rx Instructions . Route .COMPLEX 05/20/24 02/10/25 History (3 mL) subcutaneous pen (Novolog FlexPen U-100 Insulin aspart) metoprolol succinate 50 mg 50 mg PO QAM #90 tabs 05/2002/10/25 Rx tablet,extended release 24 hr montelukast 10 mg tablet 10 mg PO DAILY #90 tabs 06/0802/10/25 Rx budesonide-formoterol HFA 160 2 puff inhalation Q12H # 10.2 grams 07/17/24 02/10/25 Rx mcg-4.5 mcg/actuation aerosol inhaler apixaban 2.5 mg tablet (Eliquis) See Rx Instructions P O .COMPLEX 07/29/24 02/10/25 Rx #180 tabs amiodarone 200 mg tablet 200 mg PO QAM 09/02/2402/10 History insulin glargine 100 unit/mL (3 18 unit subcut QPM 02/10/25 History mL) subcutaneous pen (Lantus Solostar U-100 Insulin) ropinirole 2 mg tablet 0.5 mg PO Q12H 09/02/24 10/11/28 History fluticasone propionate 50 2 spray intranasal DAILY PRN nasal 10/20/24 02/10/25 Rx mcg/actuation nasal congestion #16 grams spray,suspension atorvastatin 20 mg tablet (Lipitor) 20 mg PO HS #90 ta bs 11/03/24 02/10/25 Rx trazodone 50 mg tablet 50 mg PO QHS #30 tabs 02/10/25 Rx escitalopram oxalate 5 mg tablet 5 mg PO DAILY #90 tab s 11/04/24 02/10/25 Rx (Lexapro) hydralazine 25 mg tablet 25 mg PO TID #270 tabs 12/0402/10/25 Rx isosorbide mononitrate 30 mg 30 mg PO DAILY #90 tabs 0 12/04/24 02/10/25 Rx tablet,extended release 24 hr levothyroxine 175 mcg tablet See Rx Instructions .Rout e 01/27/25 02/10/25 Rx .COMPLEX #90 tabs cholestyramine 4 gram oral powder 4 g PO BID #60 ea 02/10/25 Rx for suspension in a packet (Cholestyramine Light) lorazepam 0.5 mg tablet (Ativan) 0.5 mg PO BID PRN anx iety #60 tabs 02/02/25 02/10/25 Rx amoxicillin 500 mg-potassium 1 tablet PO QHS #2 tabs 1 Rx clavulanate 125 mg tablet (Augmentin) Allergies Allergy/AdvReac Type Severity Reaction Status Date / Time nickel Allergy Intermediate hives and Verified 01/27/25 15:35 itchy rash Sulfa (Sulfonamide Allergy Intermediate Urticaria Verified 01/27/25 15:35 Antibiotics) and hives Calcium Channel Blocking AdvReac Intermediate STATES Verified 01/27/25 15:35 Agents-Dih CANNOT TAKE SINCE SHE HAS ASTHMA diphenhydramine AdvReac Intermediate restless Verified 01/27/25 15:35 legs nifedipine AdvReac Intermediate palpitation Verified 01/27/25 15:35 s Jqjnddz-[id number]-NfX Reductase AdvReac Intermediate muscle Verified 01/27/25 15:35 Inhibitor (Ihjglqe-Xdp-Zhp cramps Reductase Inhibitor) Vital Signs Vital Signs Temp Pulse Resp BP Pulse Ox O2 Del Method 02/10/25 10:44 Room Air 02/10/25 10:28 Room Air 02/10/25 09:10 63 96 02/10/25 08:48 Room Air 02/10/25 08:48 56 L 02/10/25 08:44 56 L 02/10/25 05:52 98.1 F 59 L 18 148/62 H 96 02/10/25 04:47 60 12 171/60 H 02/10/25 04:45 60 16 02/10/25 04:31 60 15 02/10/25 04:08 59 L 16 99 02/10/25 03:40 58 L 17 02/10/25 02:32 57 L 16 02/10/25 02:15 55 L 16 02/10/25 02:03 59 L 16 02/10/25 01:42 62 19 92 02/10/25 01:02 98.8 F 68 16 163/77 H 98 02/09/25 22:49 100 F H 67 20 97 Room Air Exam 2 Narrative: GENERAL APPEARANCE: elderly but well developed well nourished female in no acute distress HEENT: normocephalic, atraumatic, normal conjunctiva and sclera, nares patient NECK: no lymphadenopathy, thyromegaly, or JVD MOUTH: normal lips, teeth, and gums CARDIOVASCULAR: RRR, normal S1 and S2, no rub RESPIRATORY: clear anteriorly; decreased at bases ABDOMEN: soft, nontender, nondistended, positive bowel sounds present EXTREMITIES: no evidence of cyanosis, clubbing, or edema NEUROLOGICAL: awake and alert; expressive aphasia present; noted right sided weakness Results Lab Results 02/13/25 06:08 02/13/25 06:08 Lab results: Most recent lab results Calcium 8.1 mg/dL (8.4-10.2) L 02/10/25 00:58 Magnesium 1.9 mg/dL (1.6-2.3) 02/10/25 00:58
[2025-02-10] MEDS: FLUTICASONE/SALMETEROL 115-21 MCG INHALER 1 PUFF 2 PUFF INHALATION (11:17)
[2025-02-10] MEDS: INSULIN ASPART (*BKC) 100 UNITS/ML SUB-Q (12:22)
[2025-02-10] MEDS: DIPHENHYDRAMINE 1%/ZINC 0.1% CREAM 30 GM TUBE 1 APPLIC TOPICAL (15:06)
--- NOTE | 2025-02-10 16:29 | PCSTNOTE ---
Please refer to the Bedside Swallow Evaluation in the EMR. Please note, silent aspiration cannot be ruled out at bedside. The patient is a 74 year old female admitted with an acute UTI and a history of a prior CVA. She is on a regular diet and thin liquid at home. Nursing noted no difficulty with her morning meal but did have a coughing episode with one medication. A BSE was ordered to r/o an aspiration risk. The patient was provided the following consistencies: 5cc/ tsp thin liquid, thin liquid via cup, pudding consistency, and cracker consistency. Oral Stage: Required extra time to masticate but overall a timely oral preparation. Pharyngeal Stage: When presented all consistencies swallow initiation was mildly delayed. However completed with good laryngeal elevation and no CSA such as coughing, choking or change in vocal quality. Recommend 1. Regular Diet / Level 7 2. Thin liquid / Level 0 3. Upright with meals 4. Frequent observation
[2025-02-10] MEDS: INSULIN GLARGINE (*BKC) 100 UNITS/ML 14 UNITS SUB-Q (17:43)
[2025-02-10] MEDS: CHOLESTYRAMINE LIGHT 4 GM POWD.PACK PO (17:56)
--- NOTE | 2025-02-10 19:59 | PCRCNOTE ---
RT saw patient for administration of Advair 115 Mcg; she is obtunded and unable to perform/follow commands appropriately. Son, Jayy, is in room and attempted to assist in coaching, resulting in abandoning our attempts. RN informed.
[2025-02-10] MEDS: ATORVASTATIN 20 MG TABLET PO (20:10)
[2025-02-10] MEDS: ACETAMINOPHEN 325 MG TABLET 650 MG PO (20:10)
[2025-02-11] VITALS (22 sets, daily range): BP systolic 113–194; BP diastolic 35–126; PULSE 51–68; RESP 16–20; TEMP 36.6–37.2; O2SAT 92–99
[2025-02-11] MEDS: cefTRIAXone 1 GM in SODIUM CHLORIDE 0.9% IV 50 ML 100 ML IVPB (03:43)
[2025-02-11] MEDS: DOXYCYCLINE IV 100 MG in SODIUM CHLORIDE 0.9% IV 100 ML IVPB ×2 (04:18→18:31)
[2025-02-11 07:03] LABS: Hematocrit 27.0 % (37.0-47.0); Hemoglobin 7.9 g/dL (12.0-15.0); Immature Granulocyte Percent A 0.2 % (0-0.5); Lymphocytes Absolute Auto 1.45 K/mm3 (0.9-3.2); Mean Corpuscular HGB Conc 29.3 g/dl (32-36); Mean Corpuscular Hemoglobin 27.0 pg (26-34); Mean Corpuscular Volume 92.2 fl (80-100); Nucleated Red Blood Cells Absolute Auto 0.000 K/mm3 (0.0-0.012); Nucleated Red Blood Cells Perc 0.0 % (0.0-0.2); Platelet Count Result 154 k/mm3 (150-375); Red Blood Count 2.93 M/mm3 (4.2-5.4); White Blood Count 4.2 K/mm3 (4.5-10.0)
[2025-02-11 07:19] LABS: Alanine Aminotransferase 12 U/L (6-35); Albumin Level 2.8 g/dL (3.5-5.1); Alkaline Phosphatase 80 U/L (38-126); Anion Gap 9 mmol/L (4-12); Aspartate Amino Transferase 19 U/L (14-36); Bilirubin,Total < 0.1 mg/dL (0.2-1.3); Blood Urea Nitrogen 28 mg/dL (7-17); Calcium 6.6 mg/dL (8.4-10.2); Carbon Dioxide 27 mmol/L (22-30); Chloride 101 mmol/L (98-107); Estimated CRCL calculation 11 ml/min; Estimated Glomerular Filt Rate 10; Glucose 43 mg/dL (65-110); Potassium 3.3 mmol/L (3.4-5.0); Sodium 137 mmol/L (137-145); Total Protein 5.7 g/dL (6.3-8.2)
[2025-02-11 07:39] LABS: Anisocytosis 1+; Hypochromasia 1+; Stomatocytes 1+; Target Cells Occasional
[2025-02-11 07:40] LABS: Schistocytes None Seen
[2025-02-11] MEDS: FLUTICASONE/SALMETEROL 115-21 MCG INHALER 1 PUFF 2 PUFF INHALATION ×2 (08:09→20:42)
--- NOTE | 2025-02-11 09:58 | PCPTNOTE ---
Attempted to see patient for PT, however patient was working with OT.
[2025-02-11 10:09] LABS: Hepatitis B Surface Antigen Negative (Negative)
[2025-02-11 10:26] LABS: Hepatitis B Surface Anti Res Negative
[2025-02-11] MEDS: APIXABAN 2.5 MG TABLET PO ×2 (13:18→21:52)
[2025-02-11] MEDS: ESCITALOPRAM OXALATE 5 MG TABLET PO (13:18)
--- NOTE | 2025-02-11 14:10 | P.PNNP_ITS ---
Progress Note: A&P Assessment and Plan (1) End stage renal disease: Code(s): N18.6 - End stage renal disease Status: Chronic Assessment and Plan: * HD today * continue M/W/F outpatient dialysis schedule * follow electrolytes, volume status, and clearance (2) UTI (urinary tract infection): Code(s): N39.0 - Urinary tract infection, site not specified Status: Acute Assessment and Plan: * admission UA highly suggestive * follow culture data * on antibiotics (3) Anemia: Code(s): D64.9 - Anemia, unspecified Status: Chronic Assessment and Plan: * due to ESRD * RADHA/Epogen with HD * follow trend of H/H (4) Hypertension: Qualifiers: Hypertension type: unspecified Qualified Code(s): I10 - Essential (primary) hypertension Code(s): I10 - Essential (primary) hypertension Status: Chronic Assessment and Plan: * running a bit high * resume home BP medications * adjust if needed * follow trend of hemodynamics (5) Generalized weakness: Code(s): R53.1 - Weakness Status: Acute Assessment and Plan: * due to #2 (?) * follow clinical symptoms * continue PT/OT (6) Type 2 diabetes mellitus with hyperglycemia: Qualifiers: Diabetes mellitus longitudinal float operator insulin use: with longitudinal float operator use Qualified Code(s): E11.65 - Type 2 diabetes mellitus with hyperglycemia; 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 L Subjective Date/time seen: 02/11/25 14:10 Interval history: Follow-up for end stage renal disease on hemodialysis. Tolerating dialysis treatment at the time of my visit (seen on HD at 2:00pm); appears to be doing reasonably well when seen; mentation appears stable when seen; no other acute issues/events overnight or earlier this morning. Exam 2 Narrative: General: elderly but WD/WN female in NAD Heart: normal S1 and S2; no rub Lungs: clear anteriorly; decreased at bases Abdomen: soft, nontender, nondistended, positive bowel sounds Extremities: no cyanosis or clubbing; trace edema Skin: warm and dry Objective Data Vital Signs Vital Signs: Vital Signs Temp Pulse Resp BP Pulse Ox O2 Del Method 02/11/25 14:00 54 L 176/74 H 02/11/25 13:45 60 113/83 02/11/25 13:34 57 L 182/62 H 02/11/25 13:26 98.2 F 56 L 18 176/61 H 99 02/11/25 08:11 51 L 20 02/11/25 08:11 51 L 20 99 Room Air 02/11/25 08:00 Room Air 02/11/25 05:14 97.8 F 58 L 16 124/67 97 02/10/25 22:00 97.6 F 56 L 16 155/78 H 97 02/10/25 19:48 14 Intake/Output Intake/Output: Intake & Output 02/08/25 02/09/25 02/10/25 02/11/25 23:59 23:59 23:59 23:59 Intake Total 1330 750 Output Total 3500 Balance 1330 -2750 Meds/Results Medications: Active Medications Generic Name Dose Route Start Last Admin Trade Name Freq PRN Reason Stop Dose Admin Acetaminophen 650 mg 02/10/25 03:56 02/10/25 20:10 Acetaminophen 325 Mg Tablet PO 650 mg Q4H PRN Administration Mild Pain (1-3) or Fever Albuterol 2.5 mg 02/10/25 07:11 Albuterol Sulfate Neb 2.5 Mg/3 Ml Inh INHALATION Q4-6H PRN Shortness Of Breath Or Wheezing Amiodarone HCl 200 mg 02/10/25 09:00 02/11/25 17:44 Amiodarone Hcl 200 Mg Tablet PO Not Given QAM ALINA Apixaban 2.5 mg 02/10/25 09:00 02/11/25 13:18 Apixaban 2.5 Mg Tablet PO 2.5 mg Q12HR ALINA Administration Atorvastatin Calcium 20 mg 02/10/25 21:00 02/10/25 20:10 Atorvastatin 20 Mg Tablet PO 20 mg HS ALINA Administration Cholestyramine Resin 4 gm 02/10/25 11:00 02/11/25 18:34 Cholestyramine Light 4 Gm Powd.Pack PO 4 gm 1100,1700 ALINA Administration Dextrose 12.5 gm 02/10/25 04:31 Dextrose 50% 25 Gm/50 Ml Syringe IV PUSH PRN PRN Hypoglycemia Protocol Escitalopram Oxalate 5 mg 02/10/25 09:00 02/11/25 13:18 Escitalopram Oxalate 5 Mg Tablet PO 5 mg DAILY ALINA Administration Fluticasone Propionate 2 spray 02/10/25 07:11 Fluticasone Propionate 0.05% Na Spr 16 Gm Btl (*Bkc) NASAL DAILY PRN Nasal Congestion Glucose 15 gm 02/10/25 04:31 Glucose Oral Gel 15 Gm Of Glucse In 37.5 Gm Tube PO PRN PRN Hypoglycemia Protocol Hydralazine HCl 25 mg 02/10/25 09:00 02/11/25 18:10 Hydralazine Hcl 25 Mg Tablet PO 25 mg Q8HR ALINA Administration Ceftriaxone Sodium 1 gm/ 50 mls @ 100 mls/hr 02/11/25 04:00 02/11/25 04:18 Sodium Chloride IVPB Infused Q24H ALINA Infusion Dextrose 1,000 mls @ 100 mls/hr 02/10/25 04:31 Dextrose 5% 1,000 Ml IVPB PRN PRN Hypoglycemia Protocol Doxycycline Hyclate 100 mg/ 100 mls @ 100 mls/hr 02/10/25 05:00 02/11/25 18:31 Sodium Chloride IVPB 100 mls/hr Q12H ALINA Administration Albumin Human 50 mls @ 999 mls/hr 02/11/25 06:03 Albutein IVPB 03/13/25 06:02 Q10M PRN HYPOTENSION Insulin Aspart 2 - 5 units 02/10/25 08:00 02/11/25 18:28 Insulin Aspart (*Bkc) 100 Units/Ml SUB-Q Not Given TIDWM ALINA Protocol Insulin Aspart 1 - 2 units 02/10/25 21:00 02/10/25 20:11 Insulin Aspart (*Bkc) 100 Units/Ml SUB-Q Not Given HS [facility] Protocol Insulin Glargine 11 units 02/11/25 18:00 02/11/25 18:28 Insulin Glargine (*Bkc) 100 Units/Ml SUB-Q 11 units QPM ALINA Administration Isosorbide Mononitrate 30 mg 02/10/25 09:00 02/11/25 17:45 Isosorbide Mononitrate 30 Mg Tab.Er.24h PO Not Given DAILY ALINA Levothyroxine Sodium 100 mcg/ 175 mcg 02/10/25 07:30 02/11/25 05:32 Levothyroxine Sodium 75 mcg PO Not Given DAILY@0630 [facility] Lorazepam 0.5 mg 02/10/25 07:17 Lorazepam (*Crx) 0.5 Mg Tablet PO BID PRN Anxiety Metoprolol Succinate 50 mg 02/10/25 09:00 02/11/25 17:45 Metoprolol Succinate Ext Rel 50 Mg Tabcr PO Not Given QAM ALINA Montelukast Sodium 10 mg 02/10/25 09:00 02/11/25 17:45 Montelukast Sodium 10 Mg Tablet PO Not Given DAILY ALINA Ondansetron HCl 4 mg 02/10/25 03:56 Ondansetron Inj 4 Mg/2 Ml Vial IV PUSH Q4H PRN Nausea Ropinirole HCl 0.5 mg 02/10/25 09:00 02/11/25 18:10 Ropinirole Hcl 0.5 Mg Tablet PO 0.5 mg Q12HR ALINA Administration Fluticasone/Salmeterol 2 puff 02/10/25 08:00 02/11/25 08:09 Fluticasone/Salmeterol 115-21 Mcg Inhaler 1 Puff INHALATION 2 puff Q12HRT ALINA Administration Trazodone HCl 50 mg 02/10/25 21:00 02/10/25 20:10 Trazodone Hcl 50 Mg Tablet PO 50 mg QHS ALINA Administration Zinc Acetate/Diphenhydramine 1 applic 02/10/25 14:37 02/10/25 15:06 Diphenhydramine 1%/Zinc 0.1% Cream 30 Gm Tube TOPICAL 1 applic QID PRN Administration Itching Radiology Results: ITS Impressions Chest X-Ray 02/10/25 07:55 IMPRESSION: 1. Bibasilar airspace disease. Labs Labs: Laboratory Tests 02/11/25 05:36 02/11/25 05:36 Calcium 6.6 L Total Bilirubin < 0.1 L AST 19 ALT 12 Alkaline Phosphatase 80 Total Protein 5.7 L Albumin 2.8 L Microbiology 02/10/25 00:58 Blood Blood Culture - Preliminary 02/10/25 01:51 Blood Blood Culture - Preliminary
--- NOTE | 2025-02-11 14:15 | P.PNIM_ITS ---
Progress Note: A&P Assessment and Plan (1) Acute UTI: Code(s): N39.0 - Urinary tract infection, site not specified Status: Acute Assessment and Plan: UA was suspicious for urinary tract infection patient with recent history of E coli pansensitive however patient's did report she had missed a few doses of her antibiotic therapyurine culture from 01/25/2025 grew pansensitive e. coli * Urine culture pending * IV Rocephin pending cultures * Blood cultures pending (2) ESRD on hemodialysis: Code(s): N18.6 - End stage renal disease; Z99.2 - Dependence on renal dialysis Status: Acute Assessment and Plan: Patient ESRD dialysis scheduled Fridays * Nephrology consulted * Avoid nephrotoxic medications * Trend labs especially electrolyte clinicians needed * Renal dose antibiotics (3) Generalized weakness: Code(s): R53.1 - Weakness Status: Acute Assessment and Plan: * Fall precautions * PT/><OT consult * Rehab/home care (4) Type 2 diabetes mellitus with hyperglycemia: Qualifiers: Diabetes mellitus oysterman insulin use: with care home use Qualified Code(s): E11.65 - Type 2 diabetes mellitus with hyperglycemia; Z79.4 - long-term (current) use of insulin Code(s): E11.65 - Type 2 diabetes mellitus with hyperglycemia Status: Chronic Assessment and Plan: * Accu-Checks AC/HS * Resume patient's long-acting insulin however decreased it to 11 units (20% less) due to a hypoglycemic episode down to 43 * Renal and diabetic diet * Hypoglycemic protocol * SSI (5) RLS (restless legs syndrome): Code(s): G25.81 - Restless legs syndrome Status: Acute Assessment and Plan: * Continued patient's Requip (6) Left-sided cerebrovascular accident (CVA): Onset Date: 01/04/24 Code(s): I63.9 - Cerebral infarction, unspecified Status: Acute Assessment and Plan: Patient with history of left-sided CVA with aphasia right-sided weakness * Continued patient's atorvastatin apixaban Plan Code status: For previous provider states patient is a modified code would allow the compressions but no intubation DVT prophylaxis: Apixaban Stress ulcer prophylaxis: Protonix 40 daily PT/OT notes: PT/OT pending would benefit from home health or rehab Disposition: Patient continues admission for evaluation treatment of urinary tract infection with generalized weakness evaluation by Physical Occupational therapy. While inpatient will continue with hemodialysis patient with likely benefit from home health or rehab will discuss with care coordination. Time Spent With Patient Time with patient: 15 - 25 minutes Subjective Date/time seen: 02/11/25 14:15 Interval history: Patient is a 74-year-old female admitted for further evaluation treatment generalized weakness secondary to urinary tract infection. 02/11/2025: Assumed Care Patient sitting alongside the bed in no acute distress patient unable to answer questions appropriately due to previous history of stroke with aphasia at bedside is assisting with communication. Patient was able to shake her head no with a pain or shortness a breath has been reporting she is getting close to her baseline but still with some generalized weakness. Review of Systems Review of Systems: All systems reviewed & are unremarkable except as noted in HPI and below (Subjective) Exam Const: General: comfortable and no acute distress Other: Expressive aphasia HENMT: Mouth: Yes moist mucous membranes Eyes: General: appearance normal, both eyes and all related structures Pupils: Equal, round and reactive pupils present Neck: Neck: supple Resp: Effort & Inspection: normal respiratory effort Other: Limited participation Cardio: Rate: regular rate Rhythm: regular rhythm GI: Inspection: non-distended Auscultation: normal bowel sounds Skin: General skin exam: normal color and no rashes or lesions noted Neuro: Cranial nerves: Yes Equal, round and reactive pupils present Other: Right-sided weakness, aphasia Extrem: General: normal to inspection Objective Data Vital Signs Vital Signs: Vital Signs - 24 hr 02/10/25 15:14 02/10/25 19:48 02/10/25 22:00 Temperature 97.8 F 97.6 F Pulse Rate 57 L 56 L Respiratory Rate 18 14 16 Blood Pressure 120/104 H 155/78 H Pulse Oximetry 100 97 Oxygen Delivery 02/11/25 05:14 02/11/25 08:00 02/11/25 08:11 Temperature 97.8 F Pulse Rate 58 L 51 L Respiratory Rate 16 20 Blood Pressure 124/67 Pulse Oximetry 97 99 Oxygen Delivery Room Air Room Air 02/11/25 08:11 Temperature Pulse Rate 51 L Respiratory Rate 20 Blood Pressure Pulse Oximetry Oxygen Delivery Intake/Output Intake/Output: Intake & Output 02/08/25 02/09/25 02/10/25 02/11/25 23:59 23:59 23:59 23:59 Intake Total 1330 410 Balance 1330 410 Meds/Results Medications: Active Medications Generic Name Dose Route Start Last Admin Trade Name Freq PRN Reason Stop Dose Admin Acetaminophen 650 mg 02/10/25 03:56 02/10/25 20:10 Acetaminophen 325 Mg Tablet PO 650 mg Q4H PRN Administration Mild Pain (1-3) or Fever Albuterol 2.5 mg 02/10/25 07:11 Albuterol Sulfate Neb 2.5 Mg/3 Ml Inh INHALATION Q4-6H PRN Shortness Of Breath Or Wheezing Amiodarone HCl 200 mg 02/10/25 09:00 02/10/25 08:44 Amiodarone Hcl 200 Mg Tablet PO 200 mg QAM ALINA Administration Apixaban 2.5 mg 02/10/25 09:00 02/11/25 13:18 Apixaban 2.5 Mg Tablet PO 2.5 mg Q12HR ALINA Administration Atorvastatin Calcium 20 mg 02/10/25 21:00 02/10/25 20:10 Atorvastatin 20 Mg Tablet PO 20 mg HS ALINA Administration Cholestyramine Resin 4 gm 02/10/25 11:00 02/10/25 17:56 Cholestyramine Light 4 Gm Powd.Pack PO 4 gm 1100,1700 ALINA Administration Dextrose 12.5 gm 02/10/25 04:31 Dextrose 50% 25 Gm/50 Ml Syringe IV PUSH PRN PRN Hypoglycemia Protocol Epoetin Jorge Alberto-epbx 10,000 units 02/11/25 18:08 Epoetin Jorge Alberto-Epbx 10,000 Units/Ml Vial IV PUSH 02/11/25 18:09 ONCE ONE Escitalopram Oxalate 5 mg 02/10/25 09:00 02/11/25 13:18 Escitalopram Oxalate 5 Mg Tablet PO 5 mg DAILY ALINA Administration Fluticasone Propionate 2 spray 02/10/25 07:11 Fluticasone Propionate 0.05% Na Spr 16 Gm Btl (*Bkc) NASAL DAILY PRN Nasal Congestion Glucose 15 gm 02/10/25 04:31 Glucose Oral Gel 15 Gm Of Glucse In 37.5 Gm Tube PO PRN PRN Hypoglycemia Protocol Hydralazine HCl 25 mg 02/10/25 09:00 02/11/25 05:32 Hydralazine Hcl 25 Mg Tablet PO Not Given Q8HR ALINA Ceftriaxone Sodium 1 gm/ 50 mls @ 100 mls/hr 02/11/25 04:00 02/11/25 04:18 Sodium Chloride IVPB Infused Q24H ALINA Infusion Dextrose 1,000 mls @ 100 mls/hr 02/10/25 04:31 Dextrose 5% 1,000 Ml IVPB PRN PRN Hypoglycemia Protocol Doxycycline Hyclate 100 mg/ 100 mls @ 100 mls/hr 02/10/25 05:00 02/11/25 04:18 Sodium Chloride IVPB 100 mls/hr Q12H ALINA Administration Albumin Human 50 mls @ 999 mls/hr 02/11/25 06:03 Albutein IVPB 03/13/25 06:02 Q10M PRN HYPOTENSION Insulin Aspart 2 - 5 units 02/10/25 08:00 02/11/25 12:53 Insulin Aspart (*Bkc) 100 Units/Ml SUB-Q Not Given TIDWM [facility] Protocol Insulin Aspart 1 - 2 units 02/10/25 21:00 02/10/25 20:11 Insulin Aspart (*Bkc) 100 Units/Ml SUB-Q Not Given HS [facility] Protocol Insulin Glargine 11 units 02/11/25 18:00 Insulin Glargine (*Bkc) 100 Units/Ml SUB-Q QPM ALINA Isosorbide Mononitrate 30 mg 02/10/25 09:00 02/10/25 08:48 Isosorbide Mononitrate 30 Mg Tab.Er.24h PO 30 mg DAILY ALINA Administration Levothyroxine Sodium 100 mcg/ 175 mcg 02/10/25 07:30 02/11/25 05:32 Levothyroxine Sodium 75 mcg PO Not Given DAILY@0630 [facility] Lorazepam 0.5 mg 02/10/25 07:17 Lorazepam (*Crx) 0.5 Mg Tablet PO BID PRN Anxiety Metoprolol Succinate 50 mg 02/10/25 09:00 02/10/25 08:48 Metoprolol Succinate Ext Rel 50 Mg Tabcr PO 50 mg QAM ALINA Administration Montelukast Sodium 10 mg 02/10/25 09:00 02/10/25 08:48 Montelukast Sodium 10 Mg Tablet PO 10 mg DAILY ALINA Administration Ondansetron HCl 4 mg 02/10/25 03:56 Ondansetron Inj 4 Mg/2 Ml Vial IV PUSH Q4H PRN Nausea Ropinirole HCl 0.5 mg 02/10/25 09:00 02/10/25 20:10 Ropinirole Hcl 0.5 Mg Tablet PO 0.5 mg Q12HR ALINA Administration Fluticasone/Salmeterol 2 puff 02/10/25 08:00 02/11/25 08:09 Fluticasone/Salmeterol 115-21 Mcg Inhaler 1 Puff INHALATION 2 puff Q12HRT ALINA Administration Trazodone HCl 50 mg 02/10/25 21:00 02/10/25 20:10 Trazodone Hcl 50 Mg Tablet PO 50 mg QHS ALINA Administration Zinc Acetate/Diphenhydramine 1 applic 02/10/25 14:37 02/10/25 15:06 Diphenhydramine 1%/Zinc 0.1% Cream 30 Gm Tube TOPICAL 1 applic QID PRN Administration Itching Radiology Results: ITS Impressions Chest X-Ray 02/10/25 07:55 IMPRESSION: 1. Bibasilar airspace disease. Labs Labs: Laboratory Results - last 24 hr 02/10/25 02/10/25 02/11/25 17:23 20:08 05:36 WBC 4.2 L RBC 2.93 L Hgb 7.9 L Hct 27.0 L MCV 92.2 MCH 27.0 MCHC 29.3 L RDW 18.6 H Plt Count 154 MPV 10.2 Immature Gran % (Auto) 0.2 Neut % (Auto) 46.9 Lymph % (Auto) 34.4 [place] % (Auto) 11.6 H Eos % (Auto) 6.2 H Baso % (Auto) 0.7 Lymph # (Auto) 1.45 [place] # (Auto) 0.5 Eos # (Auto) 0.3 Baso # (Auto) 0.0 Abs Immat Gran (auto) 0.01 Absolute Neuts (auto) 2.0 Absolute Nucleated RBC 0.000 Band Neutrophils % Not Reportable Nucleated RBC % 0.0 Platelet Estimate Adequate Hypochromasia 1+ Anisocytosis 1+ Target Cells Occasional Stomatocytes 1+ Schistocytes None seen Sodium 137 Potassium 3.3 L Chloride 101 Carbon Dioxide 27 Anion Gap 9 BUN 28 H Creatinine 4.44 H Estim Creat Clear Calc 11 Estimated GFR 10 L Glucose 43 L* POC Capillary Glucose 112 H 128 H Calcium 6.6 L Total Bilirubin < 0.1 L AST 19 ALT 12 Alkaline Phosphatase 80 Total Protein 5.7 L Albumin 2.8 L Hep Bs Antigen Negative Hep Bs Antibody Negative 02/11/25 02/11/25 02/11/25 07:22 07:49 11:51 WBC RBC Hgb Hct MCV MCH MCHC RDW Plt Count MPV Immature Gran % (Auto) Neut % (Auto) Lymph % (Auto) [place] % (Auto) Eos % (Auto) Baso % (Auto) Lymph # (Auto) [place] # (Auto) Eos # (Auto) Baso # (Auto) Abs Immat Gran (auto) Absolute Neuts (auto) Absolute Nucleated RBC Band Neutrophils % Nucleated RBC % Platelet Estimate Hypochromasia Anisocytosis Target Cells Stomatocytes Schistocytes Sodium Potassium Chloride Carbon Dioxide Anion Gap BUN Creatinine Estim Creat Clear Calc Estimated GFR Glucose POC Capillary Glucose 78 82 119 H Calcium Total Bilirubin AST ALT Alkaline Phosphatase Total Protein Albumin Hep Bs Antigen Hep Bs Antibody Quality VTE Prophylaxis VTE prophylaxis: pharmacologic ordered -Patient's previous records reviewed on admission -ER notes reviewed in detail on admission -discussed all findings and current treatment plan with patient/Family/POA -Consultations reviewed for recommendations -Patient's disposition for safe discharge discussed with machine adjuster leader case trim -radiology imaging, EKG and test results I have personally reviewed and interpreted unless otherwise specified Dictation performed by [employer] direct speech recognition software, therefore construction grip variants and typographical errors may occur. Hospitalist MIPS Advance Care Plan I have confirmed that the patient's Advanced Care Plan is present, code status is documented, or surrogate decision maker is listed in patient medical record.: Yes Medication Reconciliation I have utilized all available resources to obtain, update and review the patients current medications (includes all prescriptions, OTC, herbals, cannabis, and nutritional supplements).: Yes The patient is not eligible for med reconciliation; the patient is in a emergent medical situation where delaying treatment would jeopardize the patients health.: No
[2025-02-11] MEDS: EPOETIN ALFA-EPBX 10,000 UNITS/ML VIAL 10000 UNITS IV PUSH (17:02)
[2025-02-11] MEDS: INSULIN GLARGINE (*BKC) 100 UNITS/ML 11 UNITS SUB-Q (18:28)
[2025-02-11] MEDS: CHOLESTYRAMINE LIGHT 4 GM POWD.PACK PO (18:34)
[2025-02-11] MEDS: ATORVASTATIN 20 MG TABLET PO (21:54)
[2025-02-12] MEDS: cefTRIAXone 1 GM in SODIUM CHLORIDE 0.9% IV 50 ML 100 ML IVPB (03:43)
[2025-02-12 06:00] VITALS: BP 149/79; PULSE 61; RESP 14; TEMP 36.4; O2SAT 98
[2025-02-12] MEDS: FLUTICASONE/SALMETEROL 115-21 MCG INHALER 1 PUFF 2 PUFF INHALATION ×2 (07:34→20:16)
[2025-02-12 07:36] VITALS: PULSE 55; O2SAT 92
[2025-02-12 09:19] VITALS: PULSE 66
[2025-02-12] MEDS: ESCITALOPRAM OXALATE 5 MG TABLET PO (09:19)
[2025-02-12] MEDS: METOPROLOL SUCCINATE EXT REL 50 MG TABCR PO (09:19)
[2025-02-12] MEDS: ISOSORBIDE MONONITRATE 30 MG TAB.ER.24H PO (09:19)
[2025-02-12] MEDS: AMIODARONE HCL 200 MG TABLET PO (09:19)
[2025-02-12] MEDS: MONTELUKAST SODIUM 10 MG TABLET PO (09:19)
[2025-02-12] MEDS: APIXABAN 2.5 MG TABLET PO ×2 (09:20→20:12)
[2025-02-12] MEDS: CHOLESTYRAMINE LIGHT 4 GM POWD.PACK PO ×2 (11:23→17:06)
--- NOTE | 2025-02-12 13:22 | P.PNNP_ITS ---
Progress Note: A&P Assessment and Plan (1) End stage renal disease: Code(s): N18.6 - End stage renal disease Status: Chronic Assessment and Plan: * HD tomorrow * continue M/W/F outpatient dialysis schedule * follow electrolytes, volume status, and clearance (2) UTI (urinary tract infection): Code(s): N39.0 - Urinary tract infection, site not specified Status: Acute Assessment and Plan: * admission UA highly suggestive * follow culture data * on antibiotics (3) Anemia: Code(s): D64.9 - Anemia, unspecified Status: Chronic Assessment and Plan: * due to ESRD * RADHA/Epogen with HD * follow trend of H/H (4) Hypertension: Qualifiers: Hypertension type: unspecified Qualified Code(s): I10 - Essential (primary) hypertension Code(s): I10 - Essential (primary) hypertension Status: Chronic Assessment and Plan: * better control at this time * resume home BP medications * adjust if needed * follow trend of hemodynamics (5) Generalized weakness: Code(s): R53.1 - Weakness Status: Acute Assessment and Plan: * due to #2 (?) * follow clinical symptoms * continue PT/OT (6) Type 2 diabetes mellitus with hyperglycemia: Qualifiers: Diabetes mellitus exterminator helper insulin use: with exterminator helper use Qualified Code(s): E11.65 - Type 2 diabetes mellitus with hyperglycemia; Z79.4 - terminologist (current) use of insulin Code(s): E11.65 - Type 2 diabetes mellitus with hyperglycemia Status: Chronic Assessment and Plan: * follow accu-cheks * glycemic control per hospitalist Will continue to follow. L Subjective Date/time seen: 02/12/25 13:22 Interval history: Follow-up for end stage renal disease on hemodialysis. Tolerated dialysis treatment yesterday without any issue or problems; no apparent distress voiced at the time of my visit; no events overnight or eralier this morning; continues to work with therapy as tolerated. Exam 2 Narrative: General: elderly but WD/WN female in NAD Heart: normal S1 and S2; no rub Lungs: clear anteriorly; decreased at bases Abdomen: soft, nontender, nondistended, positive bowel sounds Extremities: no cyanosis or clubbing; trace edema Skin: warm and intact Objective Data Vital Signs Vital Signs: Vital Signs Temp Pulse Resp BP Pulse Ox O2 Del Method FiO2 10/09/25 13:20 97.6 F 60 18 152/51 H 98 02/12/25 09:19 66 02/12/25 09:19 66 02/12/25 08:00 Room Air 02/12/25 07:36 55 L 92 Room Air 02/12/25 06:00 97.5 F L 61 14 149/79 H 98 02/11/25 22:00 98.9 F 60 16 163/71 H 94 02/11/25 20:42 63 18 02/11/25 20:42 63 18 92 Room Air 21 02/11/25 17:56 62 16 194/74 H 98 02/11/25 17:22 98.2 F 68 18 185/69 H 98 02/11/25 17:04 58 L 190/65 H Intake/Output Intake/Output: Intake & Output 02/09/25 02/10/25 02/11/25 02/12/25 23:59 23:59 23:59 23:59 Intake Total 1330 750 920 Output Total 3500 Balance 1330 -2750 920 Meds/Results Medications: Active Medications Generic Name Dose Route Start Last Admin Trade Name Freq PRN Reason Stop Dose Admin Acetaminophen 650 mg 02/10/25 03:56 02/10/25 20:10 Acetaminophen 325 Mg Tablet PO 650 mg Q4H PRN Administration Mild Pain (1-3) or Fever Albuterol 2.5 mg 02/10/25 07:11 Albuterol Sulfate Neb 2.5 Mg/3 Ml Inh INHALATION Q4-6H PRN Shortness Of Breath Or Wheezing Amiodarone HCl 200 mg 02/10/25 09:00 02/12/25 09:19 Amiodarone Hcl 200 Mg Tablet PO 200 mg QAM ALINA Administration Amoxicillin/Clavulanate Potassium 1 tablet 02/12/25 21:00 Amoxicillin/Clavulanate K 500-125 Mg Tab PO 02/14/25 21:01 QHS ALINA Apixaban 2.5 mg 02/10/25 09:00 02/12/25 09:20 Apixaban 2.5 Mg Tablet PO 2.5 mg Q12HR [facility]INA Administration Atorvastatin Calcium 20 mg 02/10/25 21:00 02/11/25 21:54 Atorvastatin 20 Mg Tablet PO 20 mg HS ALINA Administration Cholestyramine Resin 4 gm 02/10/25 11:00 02/12/25 11:23 Cholestyramine Light 4 Gm Powd.Pack PO 4 gm 1100,1700 AL[facility] Administration Dextrose 12.5 gm 02/10/25 04:31 Dextrose 50% 25 Gm/50 Ml Syringe IV PUSH PRN PRN Hypoglycemia Protocol Escitalopram Oxalate 5 mg 02/10/25 09:00 02/12/25 09:19 Escitalopram Oxalate 5 Mg Tablet PO 5 mg DAILY [facility] Administration Fluticasone Propionate 2 spray 02/10/25 07:11 Fluticasone Propionate 0.05% Na Spr 16 Gm Btl (*Bkc) NASAL DAILY PRN Nasal Congestion Glucose 15 gm 02/10/25 04:31 Glucose Oral Gel 15 Gm Of Glucse In 37.5 Gm Tube PO PRN PRN Hypoglycemia Protocol Hydralazine HCl 25 mg 02/10/25 09:00 02/12/25 14:24 Hydralazine Hcl 25 Mg Tablet PO 25 mg Q8HR [facility] Administration Dextrose 1,000 mls @ 100 mls/hr 02/10/25 04:31 Dextrose 5% 1,000 Ml IVPB PRN PRN Hypoglycemia Protocol Albumin Human 50 mls @ 999 mls/hr 02/11/25 06:03 Albutein IVPB 03/13/25 06:02 Q10M PRN HYPOTENSION Insulin Aspart 2 - 5 units 02/10/25 08:00 02/12/25 12:43 Insulin Aspart (*Bkc) 100 Units/Ml SUB-Q Not Given TIDWM [facility] Protocol Insulin Aspart 1 - 2 units 02/10/25 21:00 02/11/25 21:53 Insulin Aspart (*Bkc) 100 Units/Ml SUB-Q Not Given HS [facility] Protocol Insulin Glargine 11 units 02/11/25 18:00 02/11/25 18:28 Insulin Glargine (*Bkc) 100 Units/Ml SUB-Q 11 units QPM [facility] Administration Isosorbide Mononitrate 30 mg 02/10/25 09:00 02/12/25 09:19 Isosorbide Mononitrate 30 Mg Tab.Er.24h PO 30 mg DAILY [facility] Administration Levothyroxine Sodium 100 mcg/ 175 mcg 02/10/25 07:30 02/12/25 09:22 Levothyroxine Sodium 75 mcg PO Not Given DAILY@0630 [facility] Lorazepam 0.5 mg 10/07/25 07:17 Lorazepam (*Crx) 0.5 Mg Tablet PO BID PRN Anxiety Metoprolol Succinate 50 mg 02/10/25 09:00 02/12/25 09:19 Metoprolol Succinate Ext Rel 50 Mg Tabcr PO 50 mg QAM [facility] Administration Montelukast Sodium 10 mg 02/10/25 09:00 02/12/25 09:19 Montelukast Sodium 10 Mg Tablet PO 10 mg DAILY [facility] Administration Ondansetron HCl 4 mg 02/10/25 03:56 Ondansetron Inj 4 Mg/2 Ml Vial IV PUSH Q4H PRN Nausea Ropinirole HCl 0.5 mg 02/10/25 09:00 02/12/25 09:20 Ropinirole Hcl 0.5 Mg Tablet PO 0.5 mg Q12HR [facility] Administration Fluticasone/Salmeterol 2 puff 02/10/25 08:00 02/12/25 07:34 Fluticasone/Salmeterol 115-21 Mcg Inhaler 1 Puff INHALATION 2 puff Q12HRT [facility] Administration Trazodone HCl 50 mg 02/10/25 21:00 02/11/25 21:51 Trazodone Hcl 50 Mg Tablet PO 50 mg QHS [facility] Administration Zinc Acetate/Diphenhydramine 1 applic 02/10/25 14:37 02/10/25 15:06 Diphenhydramine 1%/Zinc 0.1% Cream 30 Gm Tube TOPICAL 1 applic QID PRN Administration Itching Radiology Results: ITS Impressions Chest X-Ray 02/10/25 07:55 IMPRESSION: 1. Bibasilar airspace disease. Labs Labs: Laboratory Tests 02/11/25 05:36 02/11/25 05:36 Microbiology 02/10/25 00:58 Blood Blood Culture - Preliminary 02/10/25 01:51 Blood Blood Culture - Preliminary 02/10/25 01:51 Unspecified Urine Urine Culture - Final
[2025-02-12 14:23] VITALS: BP 152/51; PULSE 60; RESP 18; TEMP 36.4; O2SAT 98
--- NOTE | 2025-02-12 14:47 | P.PNIM_ITS ---
Progress Note: A&P Assessment and Plan (1) Acute UTI: Code(s): N39.0 - Urinary tract infection, site not specified Status: Acute Assessment and Plan: UA was suspicious for urinary tract infection patient with recent history of E coli pansensitive however patient's did report she had missed a few doses of her antibiotic therapyurine culture from 01/25/2025 grew pansensitive e. coli * Urine culture general agusto * IV Rocephin switched to Oral Augmentin PO x 3 more days will still treat since patient did not complete her therapy from previous culture * Blood cultures pending (2) ESRD on hemodialysis: Code(s): N18.6 - End stage renal disease; Z99.2 - Dependence on renal dialysis Status: Acute Assessment and Plan: Patient ESRD dialysis scheduled Fridays * Nephrology consulted * Avoid nephrotoxic medications * Trend labs especially electrolyte clinicians needed * Renal dose antibiotics (3) Generalized weakness: Code(s): R53.1 - Weakness Status: Acute Assessment and Plan: * Fall precautions * PT/><OT consult * Rehab/home care (4) Type 2 diabetes mellitus with hyperglycemia: Qualifiers: Diabetes mellitus terminal gauger supervisor insulin use: with long-term use Qualified Code(s): E11.65 - Type 2 diabetes mellitus with hyperglycemia; Z79.4 - skilled nursing (current) use of insulin Code(s): E11.65 - Type 2 diabetes mellitus with hyperglycemia Status: Chronic Assessment and Plan: * Accu-Checks AC/HS * Resume patient's long-acting insulin however decreased it to 11 units (20% less) due to a hypoglycemic episode down to 43 * Renal and diabetic diet * Hypoglycemic protocol * SSI (5) RLS (restless legs syndrome): Code(s): G25.81 - Restless legs syndrome Status: Acute Assessment and Plan: * Continued patient's Requip (6) Left-sided cerebrovascular accident (CVA): Onset Date: 01/04/24 Code(s): I63.9 - Cerebral infarction, unspecified Status: Acute Assessment and Plan: Patient with history of left-sided CVA with aphasia right-sided weakness * Continued patient's atorvastatin apixaban (7) Orthostatic hypotension: Code(s): I95.1 - Orthostatic hypotension Status: Acute Assessment and Plan: Patient with a 40 point drop when working with PT likely secondary to ESRD and fluid shift * added compression stockings while ambulating and re-evaluate Plan Code status: For previous provider states patient is a modified code would allow the compressions but no intubation DVT prophylaxis: Apixaban Stress ulcer prophylaxis: Protonix 40 daily PT/OT notes: PT/OT pending would benefit from home health or rehab Disposition: Patient continues admission for evaluation treatment of urinary tract infection with generalized weakness evaluation by Physical Occupational therapy. While inpatient will continue with hemodialysis patient with likely benefit from home health or rehab family agreed to HH. Time Spent With Patient Time with patient: 15 - 25 minutes Subjective Date/time seen: 02/12/25 14:47 Interval history: Patient is a 74-year-old female admitted for further evaluation treatment generalized weakness secondary to urinary tract infection. 02/12/2025: Assumed Care Patient sitting in chair no acute distress, feeling better today. Patient was dizzy while working with PT, per nursing staff she was orhtostatic postive with a drop close to 40 points. Patient with no other complaints Review of Systems Review of Systems: All systems reviewed & are unremarkable except as noted in HPI and below (Subjective) Exam Const: General: comfortable and no acute distress Other: Expressive aphasia HENMT: Mouth: Yes moist mucous membranes Eyes: General: appearance normal, both eyes and all related structures Pupils: Equal, round and reactive pupils present Neck: Neck: supple Resp: Effort & Inspection: normal respiratory effort Other: Limited participation Cardio: Rate: regular rate Rhythm: regular rhythm GI: Inspection: non-distended Auscultation: normal bowel sounds Skin: General skin exam: normal color and no rashes or lesions noted Neuro: Cranial nerves: Yes Equal, round and reactive pupils present Other: Right-sided weakness, aphasia Extrem: General: normal to inspection Objective Data Vital Signs Vital Signs: Vital Signs - 24 hr 02/11/25 15:00 02/11/25 15:15 02/11/25 15:30 Temperature Pulse Rate 59 L 61 59 L Respiratory Rate Blood Pressure 157/35 H 130/102 H 138/109 H Pulse Oximetry Oxygen Delivery Fraction of Inspired Oxygen 02/11/25 15:45 02/11/25 16:00 02/11/25 16:15 Temperature Pulse Rate 60 62 63 Respiratory Rate Blood Pressure 174/126 H 118/79 124/78 Pulse Oximetry Oxygen Delivery Fraction of Inspired Oxygen 02/11/25 16:30 02/11/25 16:45 02/11/25 17:04 Temperature Pulse Rate 67 57 L 58 L Respiratory Rate Blood Pressure 160/50 H 185/63 H 190/65 H Pulse Oximetry Oxygen Delivery Fraction of Inspired Oxygen 02/11/25 17:22 02/11/25 17:56 02/11/25 20:42 Temperature 98.2 F Pulse Rate 68 62 63 Respiratory Rate 18 16 18 Blood Pressure 185/69 H 194/74 H Pulse Oximetry 98 98 92 Oxygen Delivery Room Air Fraction of Inspired Oxygen 21 02/11/25 20:42 02/11/25 22:00 02/12/25 06:00 Temperature 98.9 F 97.5 F L Pulse Rate 63 60 61 Respiratory Rate 18 16 14 Blood Pressure 163/71 H 149/79 H Pulse Oximetry 94 98 Oxygen Delivery Fraction of Inspired Oxygen 02/12/25 07:36 02/12/25 08:00 02/12/25 09:19 Temperature Pulse Rate 55 L 66 Respiratory Rate Blood Pressure Pulse Oximetry 92 Oxygen Delivery Room Air Room Air Fraction of Inspired Oxygen 02/12/25 09:19 02/12/25 14:23 Temperature 97.6 F Pulse Rate 66 60 Respiratory Rate 18 Blood Pressure 152/51 H Pulse Oximetry 98 Oxygen Delivery Fraction of Inspired Oxygen Intake/Output Intake/Output: Intake & Output 02/09/25 02/10/25 02/11/25 02/12/25 23:59 23:59 23:59 23:59 Intake Total 1330 750 920 Output Total 3500 Balance 1330 -2750 920 Meds/Results Medications: Active Medications Generic Name Dose Route Start Last Admin Trade Name Freq PRN Reason Stop Dose Admin Acetaminophen 650 mg 02/10/25 03:56 02/10/25 20:10 Acetaminophen 325 Mg Tablet PO 650 mg Q4H PRN Administration Mild Pain (1-3) or Fever Albuterol 2.5 mg 02/10/25 07:11 Albuterol Sulfate Neb 2.5 Mg/3 Ml Inh INHALATION Q4-6H PRN Shortness Of Breath Or Wheezing Amiodarone HCl 200 mg 02/10/25 09:00 02/12/25 09:19 Amiodarone Hcl 200 Mg Tablet PO 200 mg QAM ALINA Administration Amoxicillin/Clavulanate Potassium 1 tablet 02/12/25 21:00 Amoxicillin/Clavulanate K 500-125 Mg Tab PO 02/14/25 21:01 QHS ALINA Apixaban 2.5 mg 02/10/25 09:00 02/12/25 09:20 Apixaban 2.5 Mg Tablet PO 2.5 mg Q12HR [facility] Administration Atorvastatin Calcium 20 mg 02/10/25 21:00 02/11/25 21:54 Atorvastatin 20 Mg Tablet PO 20 mg HS ALINA Administration Cholestyramine Resin 4 gm 02/10/25 11:00 02/12/25 11:23 Cholestyramine Light 4 Gm Powd.Pack PO 4 gm 1100,1700 [facility] Administration Dextrose 12.5 gm 02/10/25 04:31 Dextrose 50% 25 Gm/50 Ml Syringe IV PUSH PRN PRN Hypoglycemia Protocol Escitalopram Oxalate 5 mg 02/10/25 09:00 02/12/25 09:19 Escitalopram Oxalate 5 Mg Tablet PO 5 mg DAILY [facility] Administration Fluticasone Propionate 2 spray 02/10/25 07:11 Fluticasone Propionate 0.05% Na Spr 16 Gm Btl (*Bkc) NASAL DAILY PRN Nasal Congestion Glucose 15 gm 02/10/25 04:31 Glucose Oral Gel 15 Gm Of Glucse In 37.5 Gm Tube PO PRN PRN Hypoglycemia Protocol Hydralazine HCl 25 mg 02/10/25 09:00 02/12/25 14:24 Hydralazine Hcl 25 Mg Tablet PO 25 mg Q8HR [facility] Administration Dextrose 1,000 mls @ 100 mls/hr 02/10/25 04:31 Dextrose 5% 1,000 Ml IVPB PRN PRN Hypoglycemia Protocol Albumin Human 50 mls @ 999 mls/hr 02/11/25 06:03 Albutein IVPB 03/13/25 06:02 Q10M PRN HYPOTENSION Insulin Aspart 2 - 5 units 02/10/25 08:00 02/12/25 12:43 Insulin Aspart (*Bkc) 100 Units/Ml SUB-Q Not Given TIDWM [facility] Protocol Insulin Aspart 1 - 2 units 02/10/25 21:00 02/11/25 21:53 Insulin Aspart (*Bkc) 100 Units/Ml SUB-Q Not Given HS [facility] Protocol Insulin Glargine 11 units 02/11/25 18:00 02/11/25 18:28 Insulin Glargine (*Bkc) 100 Units/Ml SUB-Q 11 units QPM [facility] Administration Isosorbide Mononitrate 30 mg 02/10/25 09:00 02/12/25 09:19 Isosorbide Mononitrate 30 Mg Tab.Er.24h PO 30 mg DAILY [facility] Administration Levothyroxine Sodium 100 mcg/ 175 mcg 02/10/25 07:30 02/12/25 09:22 Levothyroxine Sodium 75 mcg PO Not Given DAILY@0630 [facility] Lorazepam 0.5 mg 02/10/25 07:17 Lorazepam (*Crx) 0.5 Mg Tablet PO BID PRN Anxiety Metoprolol Succinate 50 mg 02/10/25 09:00 02/12/25 09:19 Metoprolol Succinate Ext Rel 50 Mg Tabcr PO 50 mg QAM [facility] Administration Montelukast Sodium 10 mg 02/10/25 09:00 02/12/25 09:19 Montelukast Sodium 10 Mg Tablet PO 10 mg DAILY [facility] Administration Ondansetron HCl 4 mg 02/10/25 03:56 Ondansetron Inj 4 Mg/2 Ml Vial IV PUSH Q4H PRN Nausea Ropinirole HCl 0.5 mg 02/10/25 09:00 02/12/25 09:20 Ropinirole Hcl 0.5 Mg Tablet PO 0.5 mg Q12HR [facility] Administration Fluticasone/Salmeterol 2 puff 02/10/25 08:00 02/12/25 07:34 Fluticasone/Salmeterol 115-21 Mcg Inhaler 1 Puff INHALATION 2 puff Q12HRT [facility] Administration Trazodone HCl 50 mg 02/10/25 21:00 02/11/25 21:51 Trazodone Hcl 50 Mg Tablet PO 50 mg QHS [facility]INA Administration Zinc Acetate/Diphenhydramine 1 applic 02/10/25 14:37 02/10/25 15:06 Diphenhydramine 1%/Zinc 0.1% Cream 30 Gm Tube TOPICAL 1 applic QID PRN Administration Itching Radiology Results: ITS Impressions Chest X-Ray 02/10/25 07:55 IMPRESSION: 1. Bibasilar airspace disease. Labs Labs: Laboratory Results - last 24 hr 02/11/25 02/11/25 02/11/25 17:53 20:38 21:50 POC Capillary Glucose 124 H 124 H 147 H 02/12/25 02/12/25 07:41 11:54 POC Capillary Glucose 174 H 195 H Quality VTE Prophylaxis VTE prophylaxis: pharmacologic ordered -Patient's previous records reviewed on admission -ER notes reviewed in detail on admission -discussed all findings and current treatment plan with patient/Family/POA -Consultations reviewed for recommendations -Patient's disposition for safe discharge discussed with rn case mgr -radiology imaging, EKG and test results I have personally reviewed and interpreted unless otherwise specified Dictation performed by [employer] direct speech recognition software, therefore revolving field assembler variants and typographical errors may occur. Hospitalist MIPS Advance Care Plan I have confirmed that the patient's Advanced Care Plan is present, code status is documented, or surrogate decision maker is listed in patient medical record.: Yes Medication Reconciliation I have utilized all available resources to obtain, update and review the patients current medications (includes all prescriptions, OTC, herbals, cannabis, and nutritional supplements).: Yes The patient is not eligible for med reconciliation; the patient is in a emergent medical situation where delaying treatment would jeopardize the patients health.: No
[2025-02-12] MEDS: INSULIN ASPART (*BKC) 100 UNITS/ML SUB-Q ×2 (17:43→21:19)
[2025-02-12] MEDS: INSULIN GLARGINE (*BKC) 100 UNITS/ML 11 UNITS SUB-Q (17:43)
[2025-02-12] MEDS: ATORVASTATIN 20 MG TABLET PO (20:12)
[2025-02-12 20:25] VITALS: O2SAT 92
[2025-02-12 20:36] VITALS: BP 168/66; PULSE 56; RESP 14; TEMP 36.3; O2SAT 100
[2025-02-13] VITALS (18 sets, daily range): BP systolic 111–207; BP diastolic 49–104; PULSE 55–64; RESP 14–16; TEMP 36.3–37; O2SAT 99–100
[2025-02-13] MEDS: LEVOTHYROXINE SODIUM 100 MCG, LEVOTHYROXINE SODIUM 75 MCG 175 MCG PO (05:32)
[2025-02-13 07:37] LABS: Hematocrit 29.4 % (37.0-47.0); Hemoglobin 8.7 g/dL (12.0-15.0); Mean Corpuscular HGB Conc 29.6 g/dl (32-36); Mean Corpuscular Hemoglobin 26.9 pg (26-34); Mean Corpuscular Volume 91.0 fl (80-100); Platelet Count Result 189 k/mm3 (150-375); Red Blood Count 3.23 M/mm3 (4.2-5.4); White Blood Count 6.0 K/mm3 (4.5-10.0)
[2025-02-13 07:59] LABS: Alanine Aminotransferase 11 U/L (6-35); Albumin Level 3.3 g/dL (3.5-5.1); Alkaline Phosphatase 88 U/L (38-126); Anion Gap 7 mmol/L (4-12); Aspartate Amino Transferase 20 U/L (14-36); Bilirubin,Total 0.7 mg/dL (0.2-1.3); Blood Urea Nitrogen 31 mg/dL (7-17); Calcium 8.4 mg/dL (8.4-10.2); Carbon Dioxide 31 mmol/L (22-30); Chloride 96 mmol/L (98-107); Estimated CRCL calculation 11 ml/min; Estimated Glomerular Filt Rate 9; Glucose 115 mg/dL (65-110); Magnesium 1.9 mg/dL (1.6-2.3); Potassium 3.8 mmol/L (3.4-5.0); Sodium 134 mmol/L (137-145); Total Protein 6.6 g/dL (6.3-8.2)
[2025-02-13] MEDS: FLUTICASONE/SALMETEROL 115-21 MCG INHALER 1 PUFF 2 PUFF INHALATION (08:03)
--- NOTE | 2025-02-13 10:05 | P.PNNP_ITS ---
Progress Note: A&P Assessment and Plan (1) End stage renal disease: Code(s): N18.6 - End stage renal disease Status: Chronic Assessment and Plan: * HD today * continue M/W/F outpatient dialysis schedule * follow electrolytes, volume status, and clearance (2) UTI (urinary tract infection): Code(s): N39.0 - Urinary tract infection, site not specified Status: Acute Assessment and Plan: * admission UA highly suggestive * follow culture data - results noted * on antibiotics (3) Anemia: Code(s): D64.9 - Anemia, unspecified Status: Chronic Assessment and Plan: * due to ESRD * RADHA/Epogen with HD * follow trend of H/H (4) Hypertension: Qualifiers: Hypertension type: unspecified Qualified Code(s): I10 - Essential (primary) hypertension Code(s): I10 - Essential (primary) hypertension Status: Chronic Assessment and Plan: * better control at this time * resume home BP medications * adjust if needed * follow trend of hemodynamics (5) Generalized weakness: Code(s): R53.1 - Weakness Status: Acute Assessment and Plan: * due to #2 (?) * follow clinical symptoms * continue PT/OT (6) Type 2 diabetes mellitus with hyperglycemia: Qualifiers: Diabetes mellitus halfway insulin use: with halfway use Qualified Code(s): E11.65 - Type 2 diabetes mellitus with hyperglycemia; Z79.4 - assisted (current) use of insulin Code(s): E11.65 - Type 2 diabetes mellitus with hyperglycemia Status: Chronic Assessment and Plan: * follow accu-cheks * glycemic control per hospitalist Will continue to follow. L Subjective Date/time seen: 02/13/25 10:05 Interval history: Follow-up for end stage renal disease on hemodialysis. Tolerating dialysis treatment at the time of my visit (seen on HD at 9:55am); resting comfortably when seen -- no apparent distress noted; working with therapy as tolerated; no issues/events overnight or earlier this morning. Exam 2 Narrative: General: elderly but WD/WN female in NAD Heart: normal S1 and S2; no rub Lungs: clear anteriorly; decreased at bases Abdomen: soft, nontender, nondistended, positive bowel sounds Extremities: no cyanosis or clubbing; trace edema Skin: no rash or nodules Objective Data Vital Signs Vital Signs: Vital Signs Temp Pulse Resp BP Pulse Ox O2 Del Method 02/13/25 10:00 55 L 144/104 H 02/13/25 09:45 56 L 151/50 H 02/13/25 09:30 61 140/49 L 02/13/25 09:15 64 111/64 02/13/25 09:00 59 L 185/72 H 02/13/25 08:45 59 L 191/77 H 02/13/25 08:30 56 L 186/79 H 02/13/25 08:13 56 L 194/74 H 02/13/25 08:05 97.9 F 58 L 14 207/79 H 100 02/13/25 04:50 97.3 F L 57 L 16 168/76 H 99 02/12/25 20:36 97.3 F L 56 L 14 168/66 H 100 02/12/25 20:25 92 Room Air 02/12/25 20:00 Room Air 02/12/25 14:23 97.6 F 60 18 152/51 H 98 Intake/Output Intake/Output: Intake & Output 02/10/25 02/11/25 02/12/25 02/13/25 23:59 23:59 23:59 23:59 Intake Total 1894 173 7770 240 Output Total 3500 Balance 1330 -2750 1160 240 Meds/Results Medications: Active Medications Generic Name Dose Route Start Last Admin Trade Name Freq PRN Reason Stop Dose Admin Acetaminophen 650 mg 02/10/25 03:56 02/10/25 20:10 Acetaminophen 325 Mg Tablet PO 650 mg Q4H PRN Administration Mild Pain (1-3) or Fever Albuterol 2.5 mg 02/10/25 07:11 Albuterol Sulfate Neb 2.5 Mg/3 Ml Inh INHALATION Q4-6H PRN Shortness Of Breath Or Wheezing Amiodarone HCl 200 mg 02/10/25 09:00 02/13/25 11:32 Amiodarone Hcl 200 Mg Tablet PO 200 mg QAM ALINA Administration Amoxicillin/Clavulanate Potassium 1 tablet 02/12/25 21:00 02/12/25 20:12 Amoxicillin/Clavulanate K 500-125 Mg Tab PO 02/14/25 21:01 1 tablet QHS ALINA Administration Apixaban 2.5 mg 02/10/25 09:00 02/13/25 11:25 Apixaban 2.5 Mg Tablet PO Not Given Q12HR ALINA Atorvastatin Calcium 20 mg 02/10/25 21:00 02/12/25 20:12 Atorvastatin 20 Mg Tablet PO 20 mg HS ALINA Administration Cholestyramine Resin 4 gm 02/10/25 11:00 02/12/25 17:06 Cholestyramine Light 4 Gm Powd.Pack PO 4 gm 1100,1700 ALINA Administration Dextrose 12.5 gm 02/10/25 04:31 Dextrose 50% 25 Gm/50 Ml Syringe IV PUSH PRN PRN Hypoglycemia Protocol Epoetin Jorge Alberto-epbx 10,000 units 02/13/25 18:24 02/13/25 10:40 Epoetin Jorge Alberto-Epbx 10,000 Units/Ml Vial IV PUSH 02/13/25 18:25 10,000 units ONCE ONE Administration Escitalopram Oxalate 5 mg 02/10/25 09:00 02/13/25 11:32 Escitalopram Oxalate 5 Mg Tablet PO 5 mg DAILY ALINA Administration Fluticasone Propionate 2 spray 02/10/25 07:11 Fluticasone Propionate 0.05% Na Spr 16 Gm Btl (*Bkc) NASAL DAILY PRN Nasal Congestion Glucose 15 gm 02/10/25 04:31 Glucose Oral Gel 15 Gm Of Glucse In 37.5 Gm Tube PO PRN PRN Hypoglycemia Protocol Hydralazine HCl 25 mg 02/10/25 09:00 02/13/25 05:32 Hydralazine Hcl 25 Mg Tablet PO 25 mg Q8HR ALINA Administration Dextrose 1,000 mls @ 100 mls/hr 02/10/25 04:31 Dextrose 5% 1,000 Ml IVPB PRN PRN Hypoglycemia Protocol Albumin Human 50 mls @ 999 mls/hr 02/11/25 06:03 Albutein IVPB 03/13/25 06:02 Q10M PRN HYPOTENSION Insulin Aspart 2 - 5 units 02/10/25 08:00 02/13/25 12:10 Insulin Aspart (*Bkc) 100 Units/Ml SUB-Q Not Given TIDWM ALINA Protocol Insulin Aspart 1 - 2 units 02/10/25 21:00 02/12/25 21:19 Insulin Aspart (*Bkc) 100 Units/Ml SUB-Q 1 units HS ALINA Administration Protocol Insulin Glargine 11 units 02/11/25 18:00 02/12/25 17:43 Insulin Glargine (*Bkc) 100 Units/Ml SUB-Q 11 units QPM ALINA Administration Isosorbide Mononitrate 30 mg 02/10/25 09:00 02/13/25 11:32 Isosorbide Mononitrate 30 Mg Tab.Er.24h PO 30 mg DAILY ALINA Administration Levothyroxine Sodium 100 mcg/ 175 mcg 02/10/25 07:30 02/13/25 05:32 Levothyroxine Sodium 75 mcg PO 175 mcg DAILY@0630 ALINA Administration Lorazepam 0.5 mg 02/10/25 07:17 Lorazepam (*Crx) 0.5 Mg Tablet PO BID PRN Anxiety Metoprolol Succinate 50 mg 02/10/25 09:00 02/13/25 11:31 Metoprolol Succinate Ext Rel 50 Mg Tabcr PO 50 mg QAM ALINA Administration Montelukast Sodium 10 mg 02/10/25 09:00 02/13/25 11:32 Montelukast Sodium 10 Mg Tablet PO 10 mg DAILY ALINA Administration Ondansetron HCl 4 mg 02/10/25 03:56 Ondansetron Inj 4 Mg/2 Ml Vial IV PUSH Q4H PRN Nausea Ropinirole HCl 0.5 mg 02/10/25 09:00 02/13/25 11:25 Ropinirole Hcl 0.5 Mg Tablet PO Not Given Q12HR [facility] Fluticasone/Salmeterol 2 puff 02/10/25 08:00 02/13/25 08:03 Fluticasone/Salmeterol 115-21 Mcg Inhaler 1 Puff INHALATION 2 puff Q12HRT ALINA Administration Trazodone HCl 50 mg 02/10/25 21:00 02/12/25 20:13 Trazodone Hcl 50 Mg Tablet PO 50 mg QHS ALINA Administration Zinc Acetate/Diphenhydramine 1 applic 02/10/25 14:37 02/10/25 15:06 Diphenhydramine 1%/Zinc 0.1% Cream 30 Gm Tube TOPICAL 1 applic QID PRN Administration Itching Radiology Results: ITS Impressions Chest X-Ray 02/10/25 07:55 IMPRESSION: 1. Bibasilar airspace disease. Labs Labs: Laboratory Tests 02/13/25 06:08 02/13/25 06:08 Calcium 8.4 Phosphorus 3.4 Magnesium 1.9 Total Bilirubin 0.7 AST 20 ALT 11 Alkaline Phosphatase 88 Total Protein 6.6 Albumin 3.3 L Microbiology 02/10/25 00:58 Blood Blood Culture - Preliminary 02/10/25 01:51 Blood Blood Culture - Preliminary
[2025-02-13] MEDS: SODIUM CHLORIDE 0.9% IV 1,000 ML 999 ML IV CONT (10:40)
[2025-02-13] MEDS: EPOETIN ALFA-EPBX 10,000 UNITS/ML VIAL 10000 UNITS IV PUSH (10:40)
[2025-02-13] MEDS: METOPROLOL SUCCINATE EXT REL 50 MG TABCR PO (11:31)
[2025-02-13] MEDS: ESCITALOPRAM OXALATE 5 MG TABLET PO (11:32)
[2025-02-13] MEDS: ISOSORBIDE MONONITRATE 30 MG TAB.ER.24H PO (11:32)
[2025-02-13] MEDS: AMIODARONE HCL 200 MG TABLET PO (11:32)
[2025-02-13] MEDS: MONTELUKAST SODIUM 10 MG TABLET PO (11:32)
--- NOTE | 2025-02-13 11:34 | PCOTNOTE ---
Patient is out of room for dialysis.
[2025-02-13] MEDS: CHOLESTYRAMINE LIGHT 4 GM POWD.PACK PO (12:29)
[2025-02-13] MEDS: ACETAMINOPHEN 325 MG TABLET 650 MG PO (12:42)
--- NOTE | 2025-02-13 12:58 | P.DS_ITS ---
DS: Admitting Diagnosis Discharge Date 02/13/2025 Admitting Diagnosis Generalized weakness/instability/UTI/ESRD DS: Discharge Diagnosis Discharge Diagnosis (1) Acute UTI: Code(s): N39.0 - Urinary tract infection, site not specified Status: Acute (2) ESRD on hemodialysis: Code(s): N18.6 - End stage renal disease; Z99.2 - Dependence on renal dialysis Status: Acute (3) Generalized weakness: Code(s): R53.1 - Weakness Status: Acute (4) Type 2 diabetes mellitus with hyperglycemia: Qualifiers: Diabetes mellitus halfway insulin use: with halfway use Qualified Code(s): E11.65 - Type 2 diabetes mellitus with hyperglycemia; Z79.4 - extermination inspector (current) use of insulin Code(s): E11.65 - Type 2 diabetes mellitus with hyperglycemia Status: Chronic (5) RLS (restless legs syndrome): Code(s): G25.81 - Restless legs syndrome Status: Acute (6) Left-sided cerebrovascular accident (CVA): Onset Date: 01/04/24 Code(s): I63.9 - Cerebral infarction, unspecified Status: Acute (7) Orthostatic hypotension: Code(s): I95.1 - Orthostatic hypotension Status: Acute DS: Summary Hospital Course Reason for hospitalization: Generalized weakness/instability/UTI/ESRD/orthostatic hypotension Hospital Course: Admission: Patient was a 74-year-old female brought in by her with the patient lives with and is care for by as she is reported to be weak. She has a PMH of diabetes mellitus, neuropathy, ESRD on dialysis MWF followed by Dr. 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 Of note, the patient was taken to her primary care on 01/27/2025 as she was reported to be having explosive diarrhea. At this point it was noted she was on day 2 of antibiotics for UTI, unclear which antibiotic. Patient had stool testing and C diff ordered but it appears to C diff test was canceled, reports her stool improved and is soft, no more diarrhea. The GI specimen obtained on 02/03/2025 negative for Shiga toxin, Campylobacter, Salmonella/shigella. On arrival to [facility] on 02/10/2025 the patient is at her baseline aside from reported weakness by the . The denies any visualized symptoms upon comprehensive review including chest pain, shortness of breath, increased urinary frequency, pain. Laboratory workup reveals a normal WBC at 5800, INR 1.6, serum creatinine 3.74, urinalysis 3+ protein, ketones, leukocyte esterase, 11-20 RBC, greater than 100 WBC, moderate squamous cells, 1+ bacteria. This is similar to previous urinalysis on 01/25/2025 except there are moderate squamous cells now. Urine culture from 01/25/2025 demonstrates E coli pansensitive. Patient was given ceftriaxone 1 g IV. Noted 1 time temperature of a 100? F. Hospital Course: Patient was admitted to the medical unit with a consult to Nephrology for assistance with dialysis orders while admitted. We continued treatment with IV ceftriaxone pending final cultures. Patient did informed me that she had not completed her original ABX coverage prescribed o/p for previous UTI. PT/OT was consulted which patient performed well and was back to her baseline at time of discharge. Patient had dialysis x 2 during admission and tolerated well. Final culture had no growth but transitioned to Augmentin to complete a 5 day ABX course for previous UTI. Patient did have episode of orthostatic hyp otension while working with PT and I recommended compression stockings with ambulation. Patient and family had refused home health services at time of discharge. Patient seen and assessed at time of D/C in no acute distress and back to baseline. Discharged to home with family. Status at Discharge Functional status at discharge: wheelchair bound Time Spent with Patient Time attestation: Total time spent providing and/or coordinating discharge services: Time spent: Greater than 30 minutes Exam Const: General: comfortable and no acute distress Other: Expressive aphasia HENMT: Mouth: Yes moist mucous membranes Eyes: General: appearance normal, both eyes and all related structures Pupils: Equal, round and reactive pupils present Neck: Neck: supple Resp: Effort & Inspection: normal respiratory effort Other: Limited participation Cardio: Rate: regular rate Rhythm: regular rhythm GI: Inspection: non-distended Auscultation: normal bowel sounds Skin: General skin exam: normal color and no rashes or lesions noted Neuro: Cranial nerves: Yes Equal, round and reactive pupils present Other: Right-sided weakness, aphasia Extrem: General: normal to inspection Psych: Mental Status: mental status grossly normal DS: Data Data Completed and Pending Labs on day of discharge: Labs from last 24 hours 02/13/25 02/13/25 02/13/25 11:52 08:34 06:08 WBC 6.0 RBC 3.23 L Hgb 8.7 L Hct 29.4 L MCV 91.0 MCH 26.9 MCHC 29.6 L RDW 19.0 H Plt Count 189 MPV 10.5 H Sodium 134 L Potassium 3.8 Chloride 96 L Carbon Dioxide 31 H Anion Gap 7 BUN 31 H Creatinine 4.73 H Estim Creat Clear Calc 11 Estimated GFR 9 L Glucose 115 H POC Capillary Glucose 128 H 104 Calcium 8.4 Phosphorus 3.4 Magnesium 1.9 Total Bilirubin 0.7 AST 20 ALT 11 Alkaline Phosphatase 88 Total Protein 6.6 Albumin 3.3 L 02/12/25 02/12/25 20:33 17:05 WBC RBC Hgb Hct MCV MCH MCHC RDW Plt Count MPV Sodium Potassium Chloride Carbon Dioxide Anion Gap BUN Creatinine Estim Creat Clear Calc Estimated GFR Glucose POC Capillary Glucose 212 H 255 H Calcium Phosphorus Magnesium Total Bilirubin AST ALT Alkaline Phosphatase Total Protein Albumin Preliminary micro results at discharge 02/10/25 00:58 Blood Culture - Preliminary Blood 02/10/25 01:51 Blood Culture - Preliminary Blood Discharge Plan Discharge Attending physician on discharge: Mayco Valderrama Consulting providers: Dimas Rios; Nighat Thorpe Discharging Clinician: Nighat Thorpe Anticipated Discharge Date/Time: 02/13/25 12:54 Patient Disposition: Home with Home Health Service Activity: may shower and as tolerated Diet: diabetic and renal Discharge Instructions: 1). Weakness * PT/OT with home health 2). ESRD * Continue MWF dialysis * Follow-up with [facility] as scheduled 3). You had been recently diagnosed with a UTI * I have prescribed the remaining doses of antibiotic therapy to complete therapy How can you care for yourself at home? ? Keep track of any new symptoms or changes in your symptoms. ? Rest until you feel better. ? Be safe with medicines. Take your medicines exactly as prescribed. Call your doctor if you think you are having a problem with your medicine. ? Do not drive after taking a prescription pain medicine. ? Ensure to follow-up with primary care physician as indicated and provide updated medication list provided to you at discharge. When should you call for help? Call 911 anytime you think you may need emergency care. For example, call if: ? You passed out (lost consciousness). Call your doctor now or seek immediate medical care if: ? You have new symptoms like fever, difficulty breathing, Chest pain, vomiting, or rash. ? You have new or different pain. ? You are confused and are having trouble thinking clearly. ? Your symptoms are getting worse. Watch closely for changes in your health, and be sure to contact your doctor if: ? You do not get better as expected. Patient Instructions: Antibiotic Form, Apixaban (By mouth) Patient Language: Other Stand Alone Forms: General Discharge Information Follow-up/Referrals: Rikki Amezquita MD [Primary Care Provider, Family Practice] - 3 Weeks Discharge Medications: New amoxicillin-pot clavulanate [Augmentin] 500-125 mg Tablet 1 tablet PO QHS Qty: 2 0RF Continued insulin aspart U-100 [Novolog FlexPen U-100 Insulin] 100 unit/mL (3 mL) insulin pen See Rx Instructions .ROUTE .COMPLEX MDD 60 Rx Instructions: sliding scale albuterol sulfate [Ventolin HFA] 90 mcg/actuation HFA aerosol inhaler See Rx Instructions .ROUTE .COMPLEX Qty: 18 6RF Dose Instruction: INHALE 2 PUFFS BY MOUTH 4 TIMES DAILY NEEDED FOR SHORTNESS OF BREATH OR WHEEZING. Rx Instructions: INHALE 2 PUFFS BY MOUTH 4 TIMES DAILY NEEDED FOR SHORTNESS OF BREATH OR WHEEZING. metoprolol succinate 50 mg tablet extended release 24 hr 50 mg PO QAM Qty: 90 0RF montelukast 10 mg tablet 10 mg PO DAILY Qty: 90 3RF escitalopram oxalate [Lexapro] 5 mg tablet 5 mg PO DAILY Qty: 90 4RF amiodarone 200 mg tablet 200 mg PO QAM ropinirole 2 mg tablet 0.5 mg PO Q12H insulin glargine [Lantus Solostar U-100 Insulin] 100 unit/mL (3 mL) insulin pen 18 unit subcut QPM Rx Instructions: INJECT 18 UNITS UNDER THE SKIN AT BEDTIME albuterol sulfate 2.5 mg /3 mL (0.083 %) solution for nebulization 2.5 mg inhalation Q4-6H PRN (Reason: shortness of breath or wheezing) Qty: 90 6RF budesonide-formoterol 160-4.5 mcg/actuation HFA aerosol inhaler 2 puff inhalation Q12H Qty: 10.2 6RF Eliquis 2.5 mg tablet See Rx Instructions PO .COMPLEX Qty: 180 2RF Dose Instruction: TAKE 1 TABLET TWICE DAILY Rx Instructions: TAKE 1 TABLET TWICE DAILY orally ; fluticasone propionate 50 mcg/actuation spray,suspension 2 spray intranasal DAILY PRN (Reason: nasal congestion) Qty: 16 2RF trazodone 50 mg tablet 50 mg PO QHS Qty: 30 5RF atorvastatin [Lipitor] 20 mg tablet 20 mg PO HS Qty: 90 1RF hydralazine 25 mg tablet 25 mg PO TID Qty: 270 0RF isosorbide mononitrate 30 mg tablet extended release 24 hr 30 mg PO DAILY Qty: 90 0RF levothyroxine 175 mcg tablet See Rx Instructions .ROUTE .COMPLEX Qty: 90 1RF Dose Instruction: Take 1 tablet by mouth once daily Rx Instructions: Take 1 tablet by mouth once daily Cholestyramine Light 4 gram powder in packet 4 g PO BID Qty: 60 3RF Rx Instructions: administer w/meal; avoid other meds within 1hr before or 4-6hr after dose lorazepam [Ativan] 0.5 mg tablet 0.5 mg PO BID PRN (Reason: anxiety) Qty: 60 0RF Other Ambulatory Orders: PT Outpatient Eval and Treat (ONCE) Timeframe: [id number] Location: Determined by Patient Ordered By: Nighat Thorpe Date of admission: 02/11/25 09:54 Primary Care Provider: Rikki Amezquita Admitting Provider: Pamela Burch Attending physician on admission: Pamela Burch Condition: Stable Quality VTE Prophylaxis VTE prophylaxis: pharmacologic ordered -Patient's previous records reviewed on admission -ER notes reviewed in detail on admission -discussed all findings and current treatment plan with patient/Family/POA -Consultations reviewed for recommendations -Patient's disposition for safe discharge discussed with rn case manager hospice -radiology imaging, EKG and test results I have personally reviewed and interpreted unless otherwise specified Dictation performed by [employer] direct speech recognition software, therefore director software quality assurance variants and typographical errors may occur. Hospitalist MIPS Heart Failure (Exclusion) Patient has history of Heart Transplant or Left Ventricular Assistive Device?: No IF YES, STOP HERE Heart Failure (Qualifier) Patient has current or prior documentation of LVEF less than or equal to 40%, or mod/servere depressed LVSF?: No IF NO, STOP HERE
== END 2025-02-13 15:15 | disposition home or self-care (01) | DRG 689 ==
LOC: ANHED 02-10 03:30 → ANH3MEDSUR 02-10 04:29
PROVIDERS: Internal Medicine Nephrology; Nurse Practitioner Adult Health; Physician Assistant; Admitting Provider General Practice; Emergency Provider Emergency Medicine; PCP Family Medicine; Visit Provider Nurse Practitioner Family
DX: N39.0 Urinary tract infection, site not specified (principal); N18.6 End stage renal disease; I69.351 Hemiplegia and hemiparesis following cerebral infarction affecting right dominant side; I50.32 Chronic diastolic (congestive) heart failure; I48.0 Paroxysmal atrial fibrillation; I25.10 Atherosclerotic heart disease of native coronary artery without angina pectoris; J44.9 Chronic obstructive pulmonary disease, unspecified; E11.22 Type 2 diabetes mellitus with diabetic chronic kidney disease; E11.649 Type 2 diabetes mellitus with hypoglycemia without coma; E11.42 Type 2 diabetes mellitus with diabetic polyneuropathy; E03.9 Hypothyroidism, unspecified; R41.842 Visuospatial deficit; N25.0 Renal osteodystrophy; M17.0 Bilateral primary osteoarthritis of knee; G47.33 Obstructive sleep apnea (adult) (pediatric); G25.81 Restless legs syndrome; F41.1 Generalized anxiety disorder; F32.A Depression, unspecified; Z20.822 Contact with and (suspected) exposure to COVID-19; I69.320 Aphasia following cerebral infarction; I69.398 Other sequelae of cerebral infarction; Z79.4 Long term (current) use of insulin; Z86.718 Personal history of other venous thrombosis and embolism; Z87.891 Personal history of nicotine dependence; Z99.2 Dependence on renal dialysis; Z79.01 Long term (current) use of anticoagulants
CPT/HCPCS: 36415; 71045; 80053; 81001; 82948; 83605; 83690; 83735; 84100; 84145; 84484; 85025; 85027; 85610; 85730; 86140; 86706; 87040; 87086; 87340; 87637; 92610; 93005; 94640; 96365; 97110; 97162; 97166; 97530; 97535; 99285; A9270; G0257; J0360; J0696; J1815; J7030; Q5105

== ENCOUNTER 2025-03-07 19:21 | Inpatient (IN) | payer MEDICARE, SELFPAY ==
--- OUTSIDE RECORDS SUMMARY | 2010-03-17 10:45 | XMS_ITS | Continuity of Care Document ---
Author Organization [facility] Address [address] [address] Mensah [address] [place] [phone] Phone Care Team Providers Care Nailhead Operator Name Role Phone Mohsen Peña Unavailable Unavailable [...] on Encounter [facility], [address] [place] [address] [address], [place], [place], [address], [place] tel:[phone] SEC [facility] No Information 1-201 0 Casey Connolly. [address] [place], [address], [place]. tel:[phone] Referring Provider: Mohsen Merlos, [address] [place], [address]. tel:[phone] [facility], [address], [place], [place], [address], [place] tel:[phone] [facility] No Information 8-201 0 Casey Connolly. [address] [place], [address], [place]. tel:[phone] Referring Provider: Mohsen Merlos, [address] [place], [address]. tel:[phone] [facility], [address] [place] [address] [address], [place], [place], [address], [place] tel:[phone] [facility] No Information 4-201 0 Casey Connolly. [address] [place], [address], [place]. tel:[phone] Referring Provider: Mohsen Merlos, [address] [place], [address]. tel:[phone] [facility], [address], [place], [place], [address], [place] tel:[phone] [facility] No Information September-0 3-201 0 Casey Connolly. [address] [place], [address], [place]. tel:[phone] Referring Provider: Mohsen Merlos, [address] [place], [address]. tel:[phone] [facility], [address] [place] [address] [address], [place], [place], [address], [place] tel:[phone] [facility] No Information Jul-0 1-201 0 Casey Connolly. [address] [place], [address], [place]. tel:[phone] Referring Provider: Mohsen Merlos, [address] [place], [address]. tel:[phone] [facility], [address], [place], [place], [address], [place] tel:[phone] [facility] No Information 5-201 0 Casey Connolly. [address] [place], [address], [place]. tel:[phone] Referring Provider: Mohsen Merlos, [address] [place], [facility]. tel:[phone] [facility], [address] [place] [address] [address], [place], [place], [address], [place] tel:[phone] [facility] No Information Sep-1 4-200 9 Casey Connolly. [address] [place], [address], [place]. tel:[phone] Referring Provider: Mohsen Merlos, [address] [place], [address]. tel:[phone] [facility], [address], [place], [place], [address], [place] tel:[phone] [facility] No Information Aug-3 1-200 9 Casey Connolly. [address] [place], [address], [place]. tel:[phone] [facility], [address], [place], [place], [address], [place] tel:[phone] [facility] [place] No Information Aug-2 7-200 9 Casey Connolly. [address] [place], [address], [place]. tel:[phone] [facility], [address], [place], [place], [address], [place] tel:[phone] [facility] No Information 9 Casey Connolly. [address] [place], [address], [place]. tel:[phone] Referring Provider: Mohsen Merlos, [address] [place], [address]. tel:[phone] [facility], [address], [place], [place], [address], [place] tel:[phone] [facility] No Information 9 Casey Connolly. [address] [place], [address], [place]. tel:[phone] Referring Provider: Nataly Summers, [address], [place], [address]. tel:[phone] [facility], [address], [place], [place], [address], [place] tel:[phone] [facility] No Information 0 200 9 Sheri Ingram. [address], [place], [address], [place]. tel:[phone] [facility], [address], [place], [place], [address], [place] tel:[phone] [facility] No Information 8 Sheri Rojas [address], [place], [address], [place]. tel:[phone] [facility], [address], [place], [place], [address], [place] tel:[phone] SEC [place] [facility] No Information Nov-0 8-200 7 Sheri Noblen. [address], [place], [address], [place]. tel:[phone] [facility], [address], [place], [place], [address], [place] tel:[phone] [facility] No Information Oct-2 5-200 7 Casey Connolly. [address] [place], [address], [place]. tel:[phone] Referring Provider: Mohsen Merlos, [address] [place], [address]. tel:[phone] [facility], [address], [place], [place], [address], [place] tel:[phone] [facility] No Information Sep-2 7-200 7 Casey Connolly. [address] [place], [address], [place]. tel:[phone] [facility], [address], [place], [place], [address], [place] tel:[phone] [facility] No Information Sep-2 4-200 7 Casey Connolly. [address] [place], [address], [place]. tel:[phone] [facility], [address], [place], [place], [address], [place] tel:[phone] [facility] No Information Sep-1 7-200 7 Casey Connolly. [address] [place], [address], [place]. tel:[phone] [facility], [address], [place], [place], [address], [place] tel:[phone] [facility] No Information Sep-1 3-200 7 Casey Connolly. [address] [place], [address], [place]. tel:[phone] Referring Provider: Nataly Summers, [address], [place], [facility]. tel:[phone] [facility], [address], [place], [place], [address], [place] tel:[phone] [facility] No Information Dec- 0-200 7 Sheri Rojas [address], [place], [facility], [place]. tel:[phone] [facility], [address], [place], [place], [address], [place] tel:[phone] [facility] No Information Nov-3 0-200 7 Casey Connolly. [address] [place], [facility], [place]. tel:[phone] [facility], [address], [place], [place], [address], [place] tel:[phone] [facility] No Information Nov-2 0-200 7 Sheri Rojas [address], [place], [facility], [place]. tel:[phone] [facility], [address], [place], [place], [address], [place] tel:[phone] SEC [facility] No Information 2-200 7 Sheri Rojas [address], [place], [facility], [place]. tel:[phone] [facility], [address], [place], [place], [address], [place] tel:[phone] [facility] No Information Nov-1 1-200 7 Sheri Rojas [address], [place], [facility], [place]. tel:[phone] [facility], [address], [place], [place], [address], [place] tel:[phone] [facility] No Information Sam-2 2-200 7 Sheri Ingram. [address], [place], [facility], [place]. tel:[phone] Referring Provider: Nataly Summers, [address], [place], [facility]. tel:[phone] [facility], [address], [place], [place], [address], [place] tel:[phone] [facility] No Information Oct-1 4-200 7 Sheri Ingram. [address], [place], [facility], [place]. tel:[phone] [facility], [address], [place], [place], [address], [place] tel:[phone] [facility] No Information Oct-1 3-200 7 Sheri Ingram. [address], [place], [facility], [place]. tel:[phone] [facility], [address], [place], [place], [address], [place] tel:[phone] [facility] No Information September-2 5-200 7 Sheri Ingram. [address], [place], [address], [place]. tel:[phone] Referring Provider: Nataly Summers, [address], [place], [facility]. tel:[phone] Office Consultation [facility], [address], [place], [place], [address], [place] tel:[phone] [facility] No Information Jul-2 6-200 7 Casey Connolly. [address] [place], [address], [place]. tel:[phone] Referring Provider: Nataly Summers, [address], [place], [facility]. tel:[phone] [facility], [address] [facility] [address], [place], [place], [address], [place] tel:[phone] [facility] No Information 7 Sheri Ingram. [address] [facility] , [address], [place], [address], [place]. tel:[phone] Referring Provider: John Noe [facility] [address], [place], [address]. tel:[phone] Family History Family Member Type Diagnosis Age At Onset No Information Payers Payer name Insurance type Covered democrat ID Authoriza brianna(s) Juan [facility] [id number] Social History Type Description Quantity Date Captured [...]
--- OUTSIDE RECORDS SUMMARY | 2010-03-17 10:45 | XMS_ITS | Continuity of Care Document ---
Author Organization [facility] Address [address] [facility] [address] Mensah [address] [place] [phone] Phone Care Team Providers Care Animal Impersonator Name Role Phone Mohsen Peña Unavailable Unavailable [...] Diagnoses Date Provider Providers Copied on Encounter [facility], [address] [place] [address] [address], [place], [place], [address], [place] tel:[phone] SEC [facility] No Information 1-201 0 Casey Connolly. [address] [place], [address], [place]. tel:[phone] Referring Provider: Mohsen Merlos, [address] [place], [address]. tel:[phone] [facility], [address], [place], [place], [address], [place] tel:[phone] SEC [facility] No Information 8-201 0 Casey Connolly. [address] [place], [address], [place]. tel:[phone] Referring Provider: Mohsen Merlos, [address] [place], [address]. tel:[phone] [facility], [address] [place] [address] [address], [place], [place], [address], [place] tel:[phone] SEC [facility] No Information 4-201 0 Casey Connolly. [address] [place], [address], [place]. tel:[phone] Referring Provider: Mohsen Merlos, [address] [place], [address]. tel:[phone] [facility], [address], [place], [place], [address], [place] tel:[phone] SEC [facility] No Information September-0 3-201 0 Casey Connolly. [address] [place], [address], [place]. tel:[phone] Referring Provider: Mohsen Merlos, [address] [place], [address]. tel:[phone] [facility], [address] [place] [address] [address], [place], [place], [address], [place] tel:[phone] SEC [facility] No Information Jul-0 1-201 0 Casey Connolly. [address] [place], [address], [place]. tel:[phone] Referring Provider: Mohsen Merlos, [address] [place], [address]. tel:[phone] [facility], [address], [place], [place], [address], [place] tel:[phone] SEC [facility] No Information 5-201 0 Casey Connolly. [address] [place], [address], [place]. tel:[phone] Referring Provider: Mohsen Merlos, [address] [place], [place], [facility]. tel:[phone] [facility], [address] [place] [address] [address], [place], [place], [address], [place] tel:[phone] SEC [facility] No Information Sep-1 4-200 9 Casey Connolly. [address] [place], [address], [place]. tel:[phone] Referring Provider: Mohsen Merlos, [address] [place], [address]. tel:[phone] [facility], [address], [place], [place], [address], [place] tel:[phone] SEC [facility] No Information Aug-3 1-200 9 Casey Connolly. [address] [place], [address], [place]. tel:[phone] [facility], [address], [place], [place], [address], [place] tel:[phone] SEC [facility] [place] No Information Aug-2 7-200 9 Casey Connolly. [address] [place], [address], [place]. tel:[phone] [facility], [address], [place], [place], [address], [place] tel:[phone] SEC [facility] No Information 9 Casey Connolly. [address] [place], [address], [place]. tel:[phone] Referring Provider: Mohsen Merlos, [address] [place], [address]. tel:[phone] [facility], [address], [place], [place], [address], [place] tel:[phone] SEC [facility] No Information 9 Casey Connolly. [address] [place], [address], [place]. tel:[phone] Referring Provider: Nataly Summers, [address], [place], [address]. tel:[phone] [facility], [address], [place], [place], [address], [place] tel:[phone] SEC [facility] No Information 0 200 9 Sheri Ingram. [address], [place], [address], [place]. tel:[phone] [facility], [address], [place], [place], [address], [place] tel:[phone] SEC [facility] No Information 8 Sheri Rojas [address], [place], [address], [place]. tel:[phone] [facility], [address], [place], [place], [address], [place] tel:[phone] SEC [place] [facility] No Information Nov-0 8-200 7 Sheri Noblen. [address], [place], [address], [place]. tel:[phone] [facility], [address], [place], [place], [address], [place] tel:[phone] SEC [facility] No Information Oct-2 5-200 7 Casey Connolly. [address] [place], [address], [place]. tel:[phone] Referring Provider: Mohsen Merlos, [address] [place], [address]. tel:[phone] [facility], [address], [place], [place], [address], [place] tel:[phone] SEC [facility] No Information Sep-2 7-200 7 Casey Connolly. [address] [place], [address], [place]. tel:[phone] [facility], [address], [place], [place], [address], [place] tel:[phone] SEC [facility] No Information Sep-2 4-200 7 Casey Connolly. [address] [place], [address], [place]. tel:[phone] [facility], [address], [place], [place], [address], [place] tel:[phone] SEC [facility] No Information Sep-1 7-200 7 Casey Connolly. [address] [place], [address], [place]. tel:[phone] [facility], [address], [place], [place], [address], [place] tel:[phone] [facility] No Information Sep-1 3-200 7 Casey Connolly. [address] [place], [address], [place]. tel:[phone] Referring Provider: Nataly Summers, [address], [place], [facility]. tel:[phone] [facility], [address], [place], [place], [address], [place] tel:[phone] SEC [facility] No Information Dec- 0-200 7 Sheri Rojas [address], [place], [facility], [place]. tel:[phone] [facility], [address], [place], [place], [address], [place] tel:[phone] SEC [facility] No Information Nov-3 0-200 7 Casey Connolly. [address] [place], [facility], [place]. tel:[phone] [facility], [address], [place], [place], [address], [place] tel:[phone] [facility] No Information Nov-2 0-200 7 Sheri Rojas [address], [place], [facility], [place]. tel:[phone] [facility], [address], [place], [place], [address], [place] tel:[phone] SEC [facility] No Information 2-200 7 Sheri Rojas [address], [place], [facility], [place]. tel:[phone] [facility], [address], [place], [place], [address], [place] tel:[phone] [facility] No Information Nov-1 1-200 7 Sheri Rojas [address], [place], [facility], [place]. tel:[phone] [facility], [address], [place], [place], [address], [place] tel:[phone] SEC [facility] No Information Sam-2 2-200 7 Sheri Ingram. [address], [place], [facility], [place]. tel:[phone] Referring Provider: Nataly Summers, [address], [place], [facility]. tel:[phone] [facility], [address], [place], [place], [address], [place] tel:[phone] SEC [facility] No Information Oct-1 4-200 7 Sheri Ingram. [address], [place], [facility], [place]. tel:[phone] [facility], [address], [place], [place], [address], [place] tel:[phone] [facility] No Information Oct-1 3-200 7 Sheri Ingram. [address], [place], [facility], [place]. tel:[phone] [facility], [address], [place], [place], [address], [place] tel:[phone] SEC [facility] No Information September-2 5-200 7 Sheri Ingram. [address], [place], [address], [place]. tel:[phone] Referring Provider: Nataly Summers, [address], [place], [facility]. tel:[phone] Office Consultation [facility], [address], [place], [place], [address], [place] tel:[phone] SEC [facility] No Information Jul-2 6-200 7 Casey Connolly. [address] [place], [address], [place]. tel:[phone] Referring Provider: Nataly Summers, [address], [place], [facility]. tel:[phone] [facility], [address] [facility] [address], [place], [place], [address], [place] tel:[phone] [facility] No Information 7 Sheri Ingram. [address], [place], [address], [place]. tel:[phone] Referring Provider: [address], [place], [address]. tel:[phone] Family History Family Member Type Diagnosis Age At Onset No Information Payers Payer name Insurance type Covered republican ID Authoriza brianna(s) Juan [facility] [id number] Social History Type Description Quantity Date Captured [...]
[2025-03-07] VITALS (28 sets, daily range): BP systolic 151–166; BP diastolic 51–72; PULSE 55–68; RESP 8–19; TEMP 36.5; O2SAT 97–99
--- NOTE | ~2025-03-07 | XR_ITS ---
EXAMINATION: XR chest 1V portable COMPARISON: No comparisons available. HISTORY: SOB FINDINGS: Moderate pulmonary venous congestion. Small basilar infiltrates. No pneumothorax. Moderate cardiomegaly. Mediastinal and hilar contours are within normal limits. Bony thorax no acute abnormality. Miscellaneous: None Impression: CHF Reviewed, dictated and finalized at location P. OPERATIONS ANALYST Impression: CHF
--- NOTE | ~2025-03-07 | CT_ITS ---
EXAMINATION: CT LE RT w con COMPARISON: None HISTORY: R LE redness and swelling TECHNIQUE: Axial images were obtained with IV contrast. Sagittal, coronal reconstruction images were obtained from the axial views. Omnipaque 370, [address] scan performed using dose optimization techniques including the following automated exposure control; adjustment of mA and/or kV; use of iterative reconstruction technique. Automatic exposure control was used to reduce radiation dose. Permanent radiation dose record is archived to PACS. FINDINGS: Diffuse stranding noted within the subcutaneous tissues although there is no loculated fluid collection, subcutaneous air or radiopaque foreign body identified. Mild edema is noted of the muscles and no rim-enhancing intramuscular abscess or hematoma. Moderate to severe atherosclerotic changes are noted. There is greater than 75% stenosis of the popliteal artery with 50% narrowing of the posterior tibial vessel and greater than 75% stenosis of the anterior tibial vessel. The distal posterior tibial artery appears occluded. Severe tricompartmental degenerative changes of the knee. No fracture or dislocation. No osseous destruction. IMPRESSION: 1. Severe cellulitis with mild probable myositis. No abscess is identified. 2. Severe atherosclerotic changes with critical stenoses detailed above. CTA suggested Reviewed, dictated and finalized at location P. CAL HEALTH RESEARCHER IMPRESSION: 1. Severe cellulitis with mild probable myositis. No abscess is identified. 2. Severe atherosclerotic changes with critical stenoses detailed above. CTA andersen ggested
--- NOTE | ~2025-03-07 | XR_ITS ---
Examination: XR ankle RT min 3V, XR tibia fibula RT 2V, XR foot RT min 3V Clinical History: RLE infection Comparison: None Technique: 2 views right tibia fibula, 3 views right ankle, 3 views right foot Findings/impression: Right tibia-fibula: 1. No fracture or acute bony abnormality. 2. Soft tissue edema and/or swelling. 3. No evidence of gas-forming infection. Right ankle: 1. No fracture or dislocation. Right foot: 1. No definite osteomyelitis. 2. Chronic appearing fracture fourth toe, proximal phalanx, distal shaft. 3. Osteotomy distal fifth metatarsal. 4. Severe degenerative changes PIP and DIP joints third toe. 5. Diabetic arteriopathy. 6. Midfoot degenerative changes Reviewed, dictated and finalized at location R. NG TRAINER
--- NOTE | ~2025-03-07 | CT_ITS ---
EXAMINATION: CTA LE RT, 03/08/2025 17:30 REJECT OPENER HISTORY: cellulitis, CT recs COMPARISON: No comparisons available. TECHNIQUE: CTA scan with 3D Reconstructions of the lower extremities with contrast obtained Isovue 300, 92cc injected IV. One or more of the following dose reduction techniques were used: automated exposure control, adjustment of the mA and/or kV according to patient size, use of iterative reconstruction technique. Unless otherwise stated, incidental findings do not require dedicated follow up imaging FINDINGS: Diffuse stranding is noted within the subcutaneous tissues although there is no loculated fluid collection, subcutaneous air or foreign body identified. No intramuscular abscess or hematoma identified. There are moderate to severe degenerative changes of the knee with joint effusion noted. No osseous d estruction or fracture is evident. There are severe atherosclerotic changes noted of the distal superficial femoral artery with near complete occlusion of the junction of the superficial femoral and popliteal arteries with reconstitution of flow in the popliteal artery. Moderate to severe atherosclerotic disease is noted of the popliteal artery. There are moderate to severe atherosclerotic changes noted of the peroneal, posterior tibial and anterior tibial vessels. The mid posterior tibial vessel is occluded, the level of the ankle there is flow within the peroneal vessel and the anterior tibial vessel with flow noted in the dorsalis pedis vessel. IMPRESSION: Severe atherosclerotic changes detailed above with critical stenosis of the junction of the superficial femoral and femoral arteries detailed. Conventional angiogram is recommended Reviewed, dictated and finalized at location P. CT OPENER IMPRESSION: Severe atherosclerotic changes detailed above with critical stenosi s of the junction of the superficial femoral and femoral arteries detailed. Con ventional angiogram is recommended
--- OUTSIDE RECORDS SUMMARY | 2025-03-07 19:24 | XMS_ITS | Patient Health Record ---
Author Organization [facility] [employer] Address [address] [place] [address] Care Team Providers Care Slot Tag Inserter Name Role Phone Nighat Live Unavailable [phone] Reason For Referral No Information Medications Medication SIG (Take, Route, Frequency, Duration) Notes Start Date End Date Status Potassium Chloride ER 10 MEQ Tablet Extended Release Oral Active Pravastatin Sodium 10 MG Tablet Oral Active Doxycycline Hyclate 100 MG Tablet Oral Active traMADol HCl 50 MG Tablet Oral Active Furosemide 40 MG Tablet Oral Active Xnygmurt-Ovqeexsfm-C exameth 3.5-10532-3.1 Ointment Ophthalmic Active Sertraline HCl 50 MG [...] mL) INSULIN PEN (ML) SUBCUTANEOUS *Reorder from [employer] for eRx and Interaction Alerts* Active Ventolin HFA 108 (90 Base) MCG/ACT Aerosol Solution Inhalation Active Fluconazole 150 MG Tablet Oral Active Fluticasone Propionate Diskus 50 MCG/ACT Aerosol Powder Breath Activated Inhalation *Reorder from [employer] for eRx and Interaction Alerts* Active Synthroid 200 MCG Tablet Oral Active Plan Of Treatment No Information
--- OUTSIDE RECORDS SUMMARY | 2025-03-07 19:24 | XMS_ITS | Clinical Summary ---
Author Organization [facility] Address [address] [place] [address] Care Team Providers Care Freezer Machine Operator Name Role Phone Family Alirio [...] Comments Blood Pressure 129/59 05/28/2022 8:00 AM CREDIT ASSOCIATE Pulse 76 05/28/2022 8:00 AM CREDIT ASSOCIATE Temperature 36.7 C (98 F) 05/28/2022 8:00 AM CREDIT ASSOCIATE Respiratory Rate 20 05/28/2022 8:00 AM CREDIT ASSOCIATE Oxygen Saturation 96% 05/28/2022 8:00 AM CREDIT ASSOCIATE Inhaled Oxygen Concentration - - Weight 111.6 kg (246 lb) 05/28/2022 6:37 AM CREDIT ASSOCIATE Height 162.6 cm (5' 4) 05/13/2022 5:19 PM CREDIT ASSOCIATE Body Mass Index 42.23 05/13/2022 5:19 PM CREDIT ASSOCIATE Plan of Treatment Health Maintenance Due Date [...] 6:45 PM 05/13/2022 6:03 PM Care Teams Freezer Machine Operator Relationship Specialty Start Date End Date Alirio [facility] [address] [place] [address] [address] [facility] [address] [place] [phone] PCP - General 05/14/22
--- OUTSIDE RECORDS SUMMARY | 2025-03-07 19:24 | XMS_ITS | Clinical Summary ---
Author Organization [facility] Address [address] [address] Phone Care Team Providers Care Acid Mixer Name Role Phone Rikki Amezquita MD Primary Care Provider [phone] Allergies Active Allergy Reactions Criticality Noted Date [...] (#1) 2025 03/07/2022, 2020 Insurance MEDICARE MEDICARE [facility] MEDICARE [facility] MEDICARE [facility] Member Subscriber Plan / Payer (Ef fective 2024-Present) Name:Gregoria Rae Relation to Subscriber:Self Name:Gregoria Rae Subscriber ID:Not on file Payer ID:[id number] Group ID:Not on file Type:Not on file Address: [place] [address] Care Teams Acid Mixer Relationship Specialty Start Date End Date Rikki Amezquita MD [address] [facility] [address] [facility] [address] [place] [address] PCP - General Internal Medicine 03/07/22
--- OUTSIDE RECORDS SUMMARY | 2025-03-07 19:24 | XMS_ITS | Clinical Summary ---
Author Organization [facility] Address [address] [place] [address] Care Team Providers Care Outreach Assistant Name Role Phone Rikki Amezquita MD Primary Care Provider [phone] Source Comments [facility],non-owned Affiliates and Associated Physician Practices is amultiple site organization consisting of ambulatory clinics and hospital sitesin [place], [place], [place] and [place]. This disclosure is being madepursuant to the Care Everywhere program and may not contain all information available regarding this patient. Last updated 18.[facility] Allergies Active Allergy Reactions Criticality Noted Date [...] fluticasone propionate (Flonase) 50 MCG/ACT nasal spray [place] 2 (two) sprays into the nose once daily Active LORazepam (Ativan) 0.5 MG tablet 1 (one) tablet by Enteral route every 8 hours as needed Active nystatin (Mycostatin) 752116 UNIT/GM powder Apply 1 Application to affected [...] Encounters Date Type Department Care Team Description 03/03/2025 1:10 PM CDT - 03/03/2025 11:59 PM CDT Hospital Encounter 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 Weight 108.9 kg (240 lb) 03/03/2025 1:27 PM CDT Height 162.6 cm (5' 4) 03/03/2025 1:27 PM CDT Body Mass Index 41.2 03/03/2025 1:27 PM CDT Plan of Treatment Upcoming Encounters Date Type Department Care Team (Late st Contact Info) Description 06/23/2025 2:45 PM 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 Appointment [facility] [address] [place] [address], [place] [id number] Health Maintenance Due Date Last Done Comments BONE DENSITY TESTING 1950 MEDICARE AWV 12 MONTHS 1950 HEPATITIS [...] series) 12/27/2023 DEPRESSION SCREENING 05/07/2024 COVID-19 VACCINE ( - 2024- season) 2025 04/09/2021, 07/29/2020, 07/01/2020, Additional history exists INFLUENZA VACCINE (#1) 2025 2, 02/04/2021, 02/26/2020, Additional history exists HIB VACCINE Aged Out [...] Associated Diagnosis Comments CARDIAC RHYTHM STRIP ORDER 03/05/2025 8:33 PM CDT IR ANGIO AV SHUNT IMAGING Routine 03/03/2025 2:18 PM CDT ESRD (end stage renal disease) on dialysis (HCC) from Last 3 Months Results * CARDIAC RHYTHM STRIP ORDER (03/05/2025 8:33 PM CDT) Narrative 03/05/2025 8:33 PM CDT Ordered by an unspecified provider. us Scanned Document CARDIAC SERVICES ORDERABLES Fin al Result * IR Angio Av Shunt Imaging (03/03/2025 2:18 PM CDT) Anatomical Region Laterality Modality Lower Extremity, Upper Extremity, Chest X-Ray Angiography Narrative 03/03/2025 2:10 PM CDT Abbe Monterroso MD 03/03/2025 2:13 PM [facility] Patient Name: Gregoria Rae : 1950 DATE OF PROCEDURE: 03/03/2025 ORDERING PHYSICIAN: Dr. Couch PROCEDURE: Left AV fistulogram with central venous angioplasty of left subclavian vein using 8 mm x 4 cm Conquest balloon INDICATIONS FOR PROCEDURE: The patient was referred for a fistulogram due to increase pulsatility. DESCRIPTION OF PROCEDURE: The patient's left upper arm was prepped and draped in the normal sterile manner. Using local anesthesia the access was punctured with the needle directed towards the venous circulation. A guidewire was advanced under fluoroscopy and a 5 Czech catheter placed. Digital subtraction images were obtained of the LUE AVG. This revealed no areas of stenosis within the AVG. Centrally, an area of high-grade stenosis was identified in the left subclavian vein. An image of the arteial inflow was obtained upon holding pressure from the midportion of the AV access which showed no areas of inflow stenosis Medications were administered by Dr. Monterroso including 50 mcg of Fentanyl. The patient's airway and condition was evaluated immediately prior to sedation and/or analgesia. The patient was independently monitored by a registered nurse using automated blood pressure, EKG, end tidal CO2, and pulse oximetry. There were no complications. Given the areas of stenosis as noted above, the 5 Fr sheath was exchanged over a wire for a 6F sheath. Through this a 0.035 Glidewire was manipulated centrally and the left subclavian stenoses was dilated with a 8 mm x 4 cm balloon with excellent clinical and radiographic result. A total of 20 cc of contrast and 7.7 mGy radiation were used for the procedure. The balloon wire and sheath were removed and direct digital pressure was used for hemostasis. The patient left the center in stable and satisfactory condition. 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 IMPRESSION: Successful central venous angioplasty DICTATED BY: Nichelle Monterroso M.D. DATE DICTATED: 03/03/2025 Interventional Post-Operative/Procedure Notes Surgeon: Nichelle Monterroso M.D. Pre Procedure Diagnosis: ESRD Post Procedure Diagnosis: ESRD Anesthesia: Local 1% lidocaine Disposition: OPS Status: Stable Drain or Pack: None Additional Information/Complications:None Estimated Blood Loss: Negligible Specimen: None us Uriel Lindsey MD IR ORDERABLES Final Resu lt from Last 3 Months Insurance MEDICARE [facility] MEDICARE Advance Directives * Full Code (Latest Code Status on File) Date Activated Date Inactivated Comments 05/14/2022 8:26 AM 05/28/2022 12:06 PM Care Teams Outreach Assistant Relationship Specialty Start Date End Date Rikki Amezquita MD [address] [place] [address] PCP - General 11/28/21
--- OUTSIDE RECORDS SUMMARY | 2025-03-07 19:25 | XMS_ITS | Patient Health Record ---
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) Active confirmed Problem Essential hypertension (54775054) Essential (primary) hypertension (I10) Active confirmed Problem Chronic kidney disease stage 3A (disorder) (815274137) Chronic kidney disease, stage 3a (N18.31) Active [...] Coverage End Date Medicare [place] [address] [address] [place] [address] [id number] Gregoria Rae Self - patient is the insured [facility] [address] [place] [address] [id number] Gregoria Rae Self - patient is the insured Medical (General) History Medical History History ICD Code restless leg syndrome DM HTN CKD Surgical History Surgery Date(Month/Year) thryoidectomy cholecystectomy
--- OUTSIDE RECORDS SUMMARY | 2025-03-07 19:26 | XMS_ITS | Encounter Summary ---
Author Organization [facility] Address [address] [place] [address] Care Team Providers Care Inspector Tool Name Role Phone Rikki Amezquita MD Primary Care Provider [phone] Reason for Referral * Radiology Services (Routine) - Closed Specialty Diagnoses / Procedures Referred By Contac t Referred To Contact Vascular Lab Diagnoses ESRD (end stage renal disease) on dialysis (HCC) Procedures IR Angio Av Shunt Imaging Paul Chandler MD [address] [place] [address] [place] [phone] Phone: tel: fax: [facility] [address] [place] [address], [address] [place] [address] Phone: tel: fax: Referral ID Status Reason Start Date Expiration Date Visits Re quested Visits Authorized [id number] Closed 10/01/2024 10/30/2024 1 1 Encounter Details Date Type Department Care Team (Late st Contact Info) Description 10/01/2024 Telephone [facility] [address] [place] [address], [address] [place] [address] Johana Kent, RN Social History [...] st Contact Info) Description 06/23/2025 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 Prior to beginning the procedure, [place] Protocol was performed to confirm the patient's [...] graft followed by placement of a 5 english catheter. Fluoroscopy was used for all catheter [...] blood loss: negligible Specimen(s) removed: No Specimen us Paul Chandler MD IR ORDERABLES Final Result documented in this encounter Visit Diagnoses Diagnosis ESRD (end stage renal disease) on dialysis (HCC)- Primary End stage renal disease ESRD (end stage renal disease) on dialysis (HCC) End stage renal disease documented in this encounter Care Teams Inspector Tool Relationship Specialty Start Date End Date Rikki Amezquita MD [address] [place] [address] PCP - General 11/28/21 documented as of this encounter
--- OUTSIDE RECORDS SUMMARY | 2025-03-07 19:26 | XMS_ITS | Clinical Summary ---
Author Organization [facility] Address [address] [place] [address] Care Team Providers Care Operations Mgr Name Role Phone Mona Currie MD PhD Unavailable [phone] Sammy Shepard MD Unavailable [phone] Rikki Amzequita MD Primary Care Provider Allergies Active Allergy Reactions Criticality Noted Date Comments Diphenhydramine Other (See comments) Low Restless leg Nickel Rash Medium Nifedipine Chest tightness Medium Jcnqyyh-Tcv-Oxy Reductase Inhibitors Muscle pain Medium Sulfa Hives [...] tablet (20 mg total) nightly Active banana opofuw-QYA-nji er 5 gram-45 kcal/60 mL liquid in [...] day 60 tablet 11 4 Active epoetin bryce-epbx (RETACRIT) (3,000 unit/mL) solutionIndica [...] per tube 1 tablet (200 mcg total) 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 F/u with PCP Assessment & Plan (04/13/2024 12:46 PM PATIENT ACCESS): Recently pulled out by patient, surgical site is healing, continue to clean daily and cover with dry gauze Assessment & Plan (04/09/2024 1:53 PM PATIENT ACCESS): Ok to keep tube out, cover area daily with dry gauze until healed, notify provider for change in condition or sx of dysphagia Assessment & Plan (04/06/2024 8:05 PM PATIENT ACCESS): Now tolerating PO, likely could permanently DC soon, continue with h2o flushes for now Assessment & Plan (03/15/2024 10:55 AM PATIENT ACCESS): Continue to flush q.i.d., able to tolerate food by mouth, CUTTER OPERATOR TILE following Assessment & Plan (03/06/2024 9:49 PM [...] on imaging, continue nepro at 40ml/hr with CUTTER OPERATOR TILE following for repeat swallow studies Hyperkalemia 01/18/2024 Assessment & Plan (01/18/2024 7:41 AM CDT): Improved after treatment at the hospital. Continue to monitor with dialysis. 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 01/18/2024 Assessment & Plan (04/28/2024 2:31 PM PATIENT ACCESS): Has some improvement with therapy but remains weak with hemiparesis and aphasia, requires full care for all ADLs, unable to reposition self and will require electric hospital bed at home, ongoing PT/OT Contonie asa, statin, eliquis Heart healthy diet with exercise as tolerated Maintain BP and glycemic control F/u PCP Assessment & Plan (04/13/2024 12:49 PM PATIENT ACCESS): Deficits improving have seem to stabilize now ambulatory with walker and gait belt, tolerating PO, speech garbled, continue statin, eliquis, heart healthy diet with exercise as tolerated; may need to transfer to LTC vs home with home health and family to care Assessment & Plan (04/09/2024 1:53 PM PATIENT ACCESS): Deficits improving, now ambulatory with walker and gait belt, tolerating PO, speech remains garbled, continue statin, eliquis, heart healthy diet with exercise as tolerated Assessment & Plan (04/06/2024 8:08 PM PATIENT ACCESS): Improving with therapies, now ambulatory and tolerating PO, speech remains garbled, continue statin, eliquis, heart healthy diet with exercise as tolerated Assessment & Plan (03/31/2024 2:26 PM PATIENT ACCESS): Speech and mobility improving, now ambulatory with walker and gait belt. Continue PT/OT/CUTTER OPERATOR TILE, continue statin and Eliquis, maintain BP and glycemic control Assessment & Plan (03/20/2024 8:07 PM PATIENT ACCESS): Improving with therapy, continue statin and Eliquis, maintain BP and glycemic control. Continue PT OT, CUTTER OPERATOR TILE, remains a fall risk F/u with neurology as scheduled, plans to DC home with Assessment & Plan (03/15/2024 10:51 AM PATIENT ACCESS): Improving with therapy, continue statin and Eliquis, maintain BP and glycemic control. Continue PT OT, CUTTER OPERATOR TILE, remains a fall risk Assessment & Plan (03/06/2024 9:49 PM CDT): Stable, improving with therapies, continue statin, eliquis, PT/OT/CUTTER OPERATOR TILE, supportive care, continue to advance diet as tolerated Assessment & Plan (02/27/2024 3:02 PM CDT): Stable, improving with therapies, continue statin, eliquis, PT/OT/CUTTER OPERATOR TILE, supportive care with plans to DC home following rehab stay Assessment & Plan (02/20/2024 1:56 PM CDT): Deficits improving with therapy, continue statin and eliquis, PT/OT/CUTTER OPERATOR TILE with video swallow scheduled Continue bID zyprexa 2.5mg for now, may tolerate GDR at subsequent visit Assessment & Plan (02/19/2024 10:51 AM CDT): Improving with therapy, no recurrent episodes of agitation since starting BID zyprexa, continue statin and eliquis, PT/OT/CUTTER OPERATOR TILE with video swallow scheduled Assessment & Plan (02/11/2024 1:32 PM CDT): Improving, continue statin and eliquis, PT/OT. CUTTER OPERATOR TILE following for advancement of diet, will schedule Zyprexa 2.5mg HS rather than In am, conitnue supportive care, fall precautions Assessment & Plan (02/08/2024 3:56 PM CDT): Mobility and speech improving with intermittent agitation, fall risk, zyprexa increased to 2.5mg daily as unable to be redirected at times. Continue statin, eliquis, PT/TO/CUTTER OPERATOR TILE, TF nepro per RD recs Assessment & Plan (02/03/2024 8:55 AM CDT): Mobility is improving, remains aphasic, able to follow simple commands and has spontaneous movements of all extremities; continue statin, eliquis, glycemic control, BP management, PT/OT/CUTTER OPERATOR TILE Assessment & Plan (02/01/2024 9:33 AM CDT): Mobility is improving, intermittent anxiety, will need to monitor and provide supportive care, attempt to avoid benzos or antipsychotics although may need prn low dose meds due to fall risk and inability to be redirected; continue statin, eliquis, glycemic control, BP management, PT/OT/CUTTER OPERATOR TILE Assessment & Plan (01/28/2024 2:35 PM CDT): [...] & Plan (01/25/2024 12:46 PM CDT): Ongoing PT/OT/CUTTER OPERATOR TILE with generalized weakness, aphasia and R sided facial droop, follows some simple commands, continue statin and eliquis; monitor for fall risk given intermittent agitation; no new meds today but may need PRN due to fall risk Assessment & Plan (01/25/2024 11:13 AM CDT): Mobility is improving now at times getting out of bed without help, continue to monitor for fall risk, PT/OT/CUTTER OPERATOR TILE; continue statin and eliquis Assessment & Plan (01/18/2024 5:52 PM CDT): Ongoing R sided weakness, R sided facial droop, aphasia; reports some improvement in spontaneous movement and mumbling. Continue asa, statin, eliquis; of note has documented statin intolerance, will need to find out specifics Continue PT/OT CUTTER OPERATOR TILE , tube feeds for now with plans for repeat video swallow Type 2 diabetes mellitus with renal complication 01/18/2024 Assessment & Plan (04/09/2024 1:54 PM PATIENT ACCESS): Glucose logs reviewed and stable, continue HS lantus and mealtime SSI, will try to DC SSI prior to DC home Assessment & Plan (04/06/2024 8:06 PM PATIENT ACCESS): Stable, continue HS lantus and mealtime SSI, [...] At risk for amiodarone toxicity with buttermaker helper u se 10/06/2022 Chronic anticoagulation 10/06/2022 Paroxysmal atrial fibrillation 10/06/2022 Assessment & Plan (04/28/2024 2:28 PM PATIENT ACCESS): Rate controlled, continue metoprolol, amiodarone, eliquis F/u cardiology dr wiley Assessment & Plan (04/13/2024 12:46 PM PATIENT ACCESS): Rate controlled on exam; continue metoprolol, amiodarone, Eliquis ; no recent falls Assessment & Plan (04/06/2024 8:06 PM PATIENT ACCESS): Rate controlled; continue metoprolol, amiodarone, Eliquis Assessment & Plan (03/31/2024 2:29 PM PATIENT ACCESS): Rate controlled on metoprolol, amiodarone; continue b.i.d. Eliquis Assessment & Plan (03/20/2024 8:09 PM PATIENT ACCESS): Stable on metoprolol, amiodarone and eliquis, conitnue [...] 10/06/2022 Assessment & Plan (04/28/2024 2:26 PM PATIENT ACCESS): Continue treatments outpatient MWF, epogen on HD days, f/u with nephrology Assessment & Plan (04/09/2024 1:54 PM PATIENT ACCESS): Tolerating HD MWF, at times using p.r.n. lorazepam with HD treatment, anxiety during access. Monitor electrolytes and weight Continue Epogen Assessment & Plan (04/06/2024 8:08 PM PATIENT ACCESS): Continue HD MWF, p.r.n. lorazepam with HD treatment. Monitor electrolytes and weight Continue Epogen Assessment & Plan (03/31/2024 2:26 PM PATIENT ACCESS): Continue HD MWF, continues to use p.r.n. lorazepam with HD treatments; daughter states this is helping,. Monitor electrolytes and weight Continue Epogen Assessment & Plan (03/20/2024 8:08 PM PATIENT ACCESS): Continue HD MWF, continue to monitor electrolytes and weight, may use p.r.n. lorazepam with HD treatments; no reports of recent agitation with treatments Assessment & Plan (03/15/2024 10:52 AM PATIENT ACCESS): Continue HD MWF, continue to monitor electrolytes [...] 3:59 PM CDT): Receiving treatments MWF at [facility], intermittent anxiety, increase zyprexa to [...] 5:55 PM CDT): Continue treatments MWF at [facility], TID calcium acetate, nephrology following, nepro tube feeds ordered, starting on jevity on admission due to no nepro available Assessment & Plan (01/18/2024 7:41 AM CDT): Continue with dialysis 3 times a week. Continue calcium acetate. Labs with dialysis. Preoperative cardiovascular examination 09/20/19 22 Chronic heart failure with preserved ejection fr action 07/02/2019 Assessment & Plan (04/28/2024 2:26 PM PATIENT ACCESS): Stable, continue metoprolol, monitor weights with HD Assessment & Plan (03/20/2024 8:08 PM PATIENT ACCESS): Stable on exam, continue metoprolol, monitor I/O, [...] 02/04 Assessment & Plan (04/06/2024 8:06 PM PATIENT ACCESS): Weight is stable since rehab admission, continue exercise as tolerated, RD following Assessment & Plan (03/20/2024 8:09 PM PATIENT ACCESS): Mobility is improving, recently stopped TF and [...] 02/04 Assessment & Plan (04/13/2024 12:48 PM PATIENT ACCESS): Stable/compensated, continue HD treatments, weekly weights, metoprolol, statin amio, eliquis Assessment & Plan (03/20/2024 8:08 PM PATIENT ACCESS): Stable on metoprolol and amiodarone, continue HD [...] with type 2 diabetes mellitus ([facility]) 05/20/2013 Overview (08/11/2016): DMII WO CMP UNCNTRLD Assessment & Plan (04/13/2024 12:48 PM PATIENT ACCESS): Well controlled on lantus 18 units hs with mealtime SSI, continue accuchecks ac and hs Assessment & Plan (03/15/2024 10:54 AM PATIENT ACCESS): Glucose logs reviewed continue lantus 18 units [...] NOS Assessment & Plan (04/28/2024 2:28 PM PATIENT ACCESS): Continue Lantus 18 units HS with mealtime SSI and daughter will assist with med administration Bp stable on metoprolol, monitor for BP goal ,140/<90 Continue accuchecks ac and hs Assessment & Plan (03/31/2024 2:28 PM PATIENT ACCESS): Continue Lantus 18 units HS with mealtime SSI, glucose 236 this a.m., evening glucose 170, continue diabetic diet. BP stable on metoprolol Assessment & Plan (03/15/2024 10:53 AM PATIENT ACCESS): BP stable on metoprolol 50mg daily, continue [...] NOS Assessment & Plan (04/13/2024 12:51 PM PATIENT ACCESS): Subclinical hypothyroidism with TSH trending up to 92, encourage appropriate administration of medication in early a.m. on empty stomach, Synthroid increased to 200 mcg daily at previous visit with plan to repeat ths in 6 weeks, T3 and T4 normal Assessment & Plan (03/31/2024 2:30 PM PATIENT ACCESS): Subclinical hypothyroidism with TSH trending up to 92, encourage appropriate administration of medication in early a.m. on empty stomach, Synthroid increased to 200 mcg daily Assessment & Plan (03/20/2024 8:09 PM PATIENT ACCESS): Inpatient workup with Tsh elevated with normal t4, ensure medication administration appropriate early am on empty stomach; repeat TSH this week Assessment & Plan (03/15/2024 10:54 AM PATIENT ACCESS): Inpatient workup with Tsh elevated with normal [...] on room air to complete PO abx, CUTTER OPERATOR TILE to follow, DC on prn duonebs, likely [...] drink = 0.6 oz pur e alcohol) [facility] Utilities Answer Date Recorded In the past 12 months has e electric, gas, oil, or water company [...] often do you attend chur ch or pentecostal services? Never 02/26/2024 Do you belong to [...] any time in the past 12 m [facility], were you homeless or living in [...] on file Legal Sex Female 10:22 AM PATIENT ACCESS Gender Identity Not on file Sexual Orientation Not on file Obstetrics History Last Filed Vital Signs Vital Sign Reading Time Taken Comments Blood Pressure 120/66 07/01/2024 9:38 AM PATIENT ACCESS Pulse 55 07/01/2024 9:38 AM PATIENT ACCESS Temperature 36.5 C (97.7 F) 03/03/2024 11:40 AM CDT Respiratory Rate 22 03/05/2024 8:31 AM CDT Oxygen Saturation 97% 07/01/2024 9:38 AM PATIENT ACCESS Inhaled Oxygen Concentration - - Weight 89.7 kg (197 lb 11.2 oz) 07/01/2024 9:38 AM PATIENT ACCESS Height 162.6 cm (5' 4) 07/01/2024 9:38 AM PATIENT ACCESS Body Mass Index 33.94 07/01/2024 9:38 AM PATIENT ACCESS Plan of Treatment Health Maintenance Due Date [...] POCT LIPID PANEL Routine 07/01/2024 9:57 AM PATIENT ACCESS Need for lipid screening EGFR Routine 03/03/2024 6:45 AM CDT HEMOGLOBIN A1C Routine 02/27/2024 5:59 AM CDT HEPATITIS PANEL, ACUTE STAT 05/08/2022 3:59 PM PATIENT ACCESS from Last 3 Months or Most Recently Relevant to Health Maintenance Results * POCT lipid panel (07/01/2024 9:57 AM PATIENT ACCESS) Cholesterol, POC 138 mg/dL Comment:GLU = 176 HDL, POC 17 mg/dL Triglycerides, POC 168 mg/dL LDL Cholesterol POC 88 mg/dL Chol/HDL Ratio, POC 5.2 Non-HDL Cholesterol, POC 121 mg/dL Cholesterol Total, POC 138 mg/dL Capillary blood 07/01/2024 9 :57 AM PATIENT ACCESS us Uriel Gillette MD POINT OF CARE [...] MD LAB BLOOD ORDERABLES Final Resu lt [facility] [address] [facility] Department [place] [address] * (ABNORMAL) Hemoglobin A1c (02/27/2024 5:59 AM CDT) Hgb A1C 7.5(H) 4.0 - 5.6 % Estimated Average Glucose 169 mg/dL [place] Comment: The ADA recommends reporting an estimated Average Glucose (eAG) with all Hemoglobin A1c results using the equation derived from a study of 507 normal and diabetic adults. Minority populations were underrepresented and children were not included. (Diabetes Care 31:8623-3855, 2008). The eAG is not equivalent to a fasting glucose. Blood 02/27/2024 5:59 AM CDT 02/27/2024 7:11 AM CDT us Asif Delgadillo MD LAB BLOOD ORDERABLES Final Re sult [facility] [address] [facility] Department [place] [address] * Hepatitis panel, acute (05/08/2022 3:59 PM PATIENT ACCESS) Hep A IgM Nonreactive Nonreactive [facility] Comment: Interpretive Data: If Hep A IgM Ab is reported as Equivocal, a new sample should be drawn in two weeks for testing. Current interpretive data was last revised on 19. Hep B core IgM Nonreactive Nonreactive [facility] Comment: Interpretive Data If HepB Core IgM Ab is reported as Equivocal, a new sample should be drawn in two weeks for testing. Current interpretive data was last revised on 19. Hep C Ab Nonreactive Nonreactive [facility] Comment: Interpretive Data Nonreactive: Antibodies to HCV [...] last revised on 2019. HepBsAg Nonreactive Nonreactive [facility] Blood 05/08/2022 3:59 PM PATIENT ACCESS 05/08/2022 3:59 PM PATIENT ACCESS Mellissa Garcia DO LAB MICROBIOLOGY - GENERAL ORD ERABLES Final Result [facility] [address] Department [place] [address] from Last 3 Months or Most Recently Relevant to Health Maintenance Insurance MEDICARE [facility] MEDICARE [employer] MEDICARE SUPPLEMENT Advance Directives For more information, please contact: [phone] Documents on File Type Date Recorded Patient Trust Manager Assistant Expl anation ADVANCE DIRECTIVE 03/04/2024 10:[address] - Phys Order for PT Preferences * Full Code (Latest Code Status on File) Date Activated Date Inactivated Comments 02/25/2024 5:55 PM 03/03/2024 4:42 PM * Full Code Date Activated Date Inactivated Comments 05/11/2021 3:52 AM 05/14/2021 8:52 PM Care Teams Operations Mgr Relationship Specialty Start Date End Date Rikki Amezquita MD [address] [facility] [address] [place] [id number] PCP - General Family Medicine 07/01/24 Mona Currie MD PhD Medical Oncologist/Briquette Molder Medical Oncology 01/07/21 Sammy Shepard MD Consulting Physician Nephrology 05/14/21
--- OUTSIDE RECORDS SUMMARY | 2025-03-07 19:26 | XMS_ITS ---
Author Organization [facility] Address [address] [place] [address] Care Team Providers Care Elementary Principal Name Role Phone Mona Currie MD PhD Unavailable [phone] Sammy Shepard MD Unavailable [phone] Rikki Amezquita MD Primary Care Provider Dialysis Access Sites Type Status Location Placement Date Removal Da te Hemodialysis AV Access Upper arm Active Left Upper Arm - Anterior Procedures Procedure Name Priority Date/Time Associated Diagnosis Comments POCT LIPID PANEL Routine 07/01/2024 9:57 AM MULTIFOCAL BUTTON GRINDER Need for lipid screening EGFR Routine 03/03/2024 6:45 AM CDT HEMOGLOBIN A1C Routine 02/27/2024 5:59 AM CDT HEPATITIS PANEL, ACUTE STAT 05/08/2022 3:59 PM MULTIFOCAL BUTTON GRINDER from Last 3 Months or Most Recently Relevant to Health Maintenance Allergies Active Allergy Reactions Criticality Noted Date Comments Diphenhydramine Other (See comments) Low Restless leg Nickel Rash Medium Nifedipine Chest tightness Medium Jrjcdko-Gnb-Lbw Reductase Inhibitors Muscle pain Medium Sulfa Hives [...] tablet (20 mg total) nightly Active banana xvwqxv-LXL-ogj er 5 gram-45 kcal/60 mL liquid in [...] per tube 1 tablet (200 mcg total) librarian specialist before breakfast 4 Active Additional Information [...] 04/13/2024 Assessment & Plan (04/28/2024 2:26 PM MULTIFOCAL BUTTON GRINDER): Stable on room air, continue trelegy, spiriva, prn duonebs Assessment & Plan (04/13/2024 12:50 PM MULTIFOCAL BUTTON GRINDER): Stable on room air, continue trelegy, spiriva, [...] 02/26/2024 Assessment & Plan (04/28/2024 2:29 PM MULTIFOCAL BUTTON GRINDER): Hb 9-10 at baseline, stable, continue epogen [...] 01/25/2024 Assessment & Plan (04/28/2024 2:25 PM MULTIFOCAL BUTTON GRINDER): Tube removed, keep healing stoma clean, dry, covered. F/u with PCP Assessment & Plan (04/13/2024 12:46 PM MULTIFOCAL BUTTON GRINDER): Recently pulled out by patient, surgical site is healing, continue to clean daily and cover with dry gauze Assessment & Plan (04/09/2024 1:53 PM MULTIFOCAL BUTTON GRINDER): Ok to keep tube out, cover area daily with dry gauze until healed, notify provider for change in condition or sx of dysphagia Assessment & Plan (04/06/2024 8:05 PM MULTIFOCAL BUTTON GRINDER): Now tolerating PO, likely could permanently DC soon, continue with h2o flushes for now Assessment & Plan (03/15/2024 10:55 AM MULTIFOCAL BUTTON GRINDER): Continue to flush q.i.d., able to tolerate food by mouth, STATION MASTER following Assessment & Plan (03/06/2024 9:49 PM [...] on imaging, continue nepro at 40ml/hr with STATION MASTER following for repeat swallow studies Hyperkalemia 01/18/2024 Assessment & Plan (01/18/2024 7:41 AM CDT): Improved after treatment at the hospital. Continue to monitor with dialysis. 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 01/18/2024 Assessment & Plan (04/28/2024 2:31 PM MULTIFOCAL BUTTON GRINDER): Has some improvement with therapy but remains weak with hemiparesis and aphasia, requires full care for all ADLs, unable to reposition self and will require electric hospital bed at home, ongoing PT/OT Contonie asa, statin, eliquis Heart healthy diet with exercise as tolerated Maintain BP and glycemic control F/u PCP Assessment & Plan (04/13/2024 12:49 PM MULTIFOCAL BUTTON GRINDER): Deficits improving have seem to stabilize now ambulatory with walker and gait belt, tolerating PO, speech garbled, continue statin, eliquis, heart healthy diet with exercise as tolerated; may need to transfer to LTC vs home with home health and family to care Assessment & Plan (04/09/2024 1:53 PM MULTIFOCAL BUTTON GRINDER): Deficits improving, now ambulatory with walker and gait belt, tolerating PO, speech remains garbled, continue statin, eliquis, heart healthy diet with exercise as tolerated Assessment & Plan (04/06/2024 8:08 PM MULTIFOCAL BUTTON GRINDER): Improving with therapies, now ambulatory and tolerating PO, speech remains garbled, continue statin, eliquis, heart healthy diet with exercise as tolerated Assessment & Plan (03/31/2024 2:26 PM MULTIFOCAL BUTTON GRINDER): Speech and mobility improving, now ambulatory with walker and gait belt. Continue PT/OT/STATION MASTER, continue statin and Eliquis, maintain BP and glycemic control Assessment & Plan (03/20/2024 8:07 PM MULTIFOCAL BUTTON GRINDER): Improving with therapy, continue statin and Eliquis, maintain BP and glycemic control. Continue PT OT, STATION MASTER, remains a fall risk F/u with neurology as scheduled, plans to DC home with Assessment & Plan (03/15/2024 10:51 AM MULTIFOCAL BUTTON GRINDER): Improving with therapy, continue statin and Eliquis, maintain BP and glycemic control. Continue PT OT, STATION MASTER, remains a fall risk Assessment & Plan (03/06/2024 9:49 PM CDT): Stable, improving with therapies, continue statin, eliquis, PT/OT/STATION MASTER, supportive care, continue to advance diet as tolerated Assessment & Plan (02/27/2024 3:02 PM CDT): Stable, improving with therapies, continue statin, eliquis, PT/OT/STATION MASTER, supportive care with plans to DC home following rehab stay Assessment & Plan (02/20/2024 1:56 PM CDT): Deficits improving with therapy, continue statin and eliquis, PT/OT/STATION MASTER with video swallow scheduled Continue bID zyprexa 2.5mg for now, may tolerate GDR at subsequent visit Assessment & Plan (02/19/2024 10:51 AM CDT): Improving with therapy, no recurrent episodes of agitation since starting BID zyprexa, continue statin and eliquis, PT/OT/STATION MASTER with video swallow scheduled Assessment & Plan (02/11/2024 1:32 PM CDT): Improving, continue statin and eliquis, PT/OT. STATION MASTER following for advancement of diet, will schedule Zyprexa 2.5mg HS rather than In am, conitnue supportive care, fall precautions Assessment & Plan (02/08/2024 3:56 PM CDT): Mobility and speech improving with intermittent agitation, fall risk, zyprexa increased to 2.5mg daily as unable to be redirected at times. Continue statin, eliquis, PT/TO/STATION MASTER, TF zainab per RD recs Assessment & Plan (02/03/2024 8:55 AM CDT): Mobility is improving, remains aphasic, able to follow simple commands and has spontaneous movements of all extremities; continue statin, eliquis, glycemic control, BP management, PT/OT/STATION MASTER Assessment & Plan (02/01/2024 9:33 AM CDT): Mobility is improving, intermittent anxiety, will need to monitor and provide supportive care, attempt to avoid benzos or antipsychotics although may need prn low dose meds due to fall risk and inability to be redirected; continue statin, eliquis, glycemic control, BP management, PT/OT/STATION MASTER Assessment & Plan (01/28/2024 2:35 PM CDT): [...] & Plan (01/25/2024 12:46 PM CDT): Ongoing PT/OT/STATION MASTER with generalized weakness, aphasia and R sided facial droop, follows some simple commands, continue statin and eliquis; monitor for fall risk given intermittent agitation; no new meds today but may need PRN due to fall risk Assessment & Plan (01/25/2024 11:13 AM CDT): Mobility is improving now at times getting out of bed without help, continue to monitor for fall risk, PT/OT/STATION MASTER; continue statin and eliquis Assessment & Plan (01/18/2024 5:52 PM CDT): Ongoing R sided weakness, R sided facial droop, aphasia; reports some improvement in spontaneous movement and mumbling. Continue asa, statin, eliquis; of note has documented statin intolerance, will need to find out specifics Continue PT/OT STATION MASTER , tube feeds for now with plans for repeat video swallow Type 2 diabetes mellitus with renal complication 01/18/2024 Assessment & Plan (04/09/2024 1:54 PM MULTIFOCAL BUTTON GRINDER): Glucose logs reviewed and stable, continue HS lantus and mealtime SSI, will try to DC SSI prior to DC home Assessment & Plan (04/06/2024 8:06 PM MULTIFOCAL BUTTON GRINDER): Stable, continue HS lantus and mealtime SSI, [...] 04/11/2023 At risk for amiodarone toxicity with first line supervisor u se 10/06/2022 Chronic anticoagulation 10/06/2022 Paroxysmal atrial fibrillation 10/06/2022 Assessment & Plan (04/28/2024 2:28 PM MULTIFOCAL BUTTON GRINDER): Rate controlled, continue metoprolol, amiodarone, eliquis F/u cardiology dr wiley Assessment & Plan (04/13/2024 12:46 PM MULTIFOCAL BUTTON GRINDER): Rate controlled on exam; continue metoprolol, amiodarone, Eliquis ; no recent falls Assessment & Plan (04/06/2024 8:06 PM MULTIFOCAL BUTTON GRINDER): Rate controlled; continue metoprolol, amiodarone, Eliquis Assessment & Plan (03/31/2024 2:29 PM MULTIFOCAL BUTTON GRINDER): Rate controlled on metoprolol, amiodarone; continue b.i.d. Eliquis Assessment & Plan (03/20/2024 8:09 PM MULTIFOCAL BUTTON GRINDER): Stable on metoprolol, amiodarone and eliquis, conitnue [...] 10/06/2022 Assessment & Plan (04/28/2024 2:26 PM MULTIFOCAL BUTTON GRINDER): Continue treatments outpatient MWF, epogen on HD days, f/u with nephrology Assessment & Plan (04/09/2024 1:54 PM MULTIFOCAL BUTTON GRINDER): Tolerating HD MWF, at times using p.r.n. lorazepam with HD treatment, anxiety during access. Monitor electrolytes and weight Continue Epogen Assessment & Plan (04/06/2024 8:08 PM MULTIFOCAL BUTTON GRINDER): Continue HD MWF, p.r.n. lorazepam with HD treatment. Monitor electrolytes and weight Continue Epogen Assessment & Plan (03/31/2024 2:26 PM MULTIFOCAL BUTTON GRINDER): Continue HD MWF, continues to use p.r.n. lorazepam with HD treatments; daughter states this is helping,. Monitor electrolytes and weight Continue Epogen Assessment & Plan (03/20/2024 8:08 PM MULTIFOCAL BUTTON GRINDER): Continue HD MWF, continue to monitor electrolytes and weight, may use p.r.n. lorazepam with HD treatments; no reports of recent agitation with treatments Assessment & Plan (03/15/2024 10:52 AM MULTIFOCAL BUTTON GRINDER): Continue HD MWF, continue to monitor electrolytes [...] 3:59 PM CDT): Receiving treatments MWF at [facility], intermittent anxiety, increase zyprexa to daily, [...] 5:55 PM CDT): Continue treatments MWF at [facility], TID calcium acetate, nephrology following, nepro tube feeds ordered, starting on jevity on admission due to no nepro available Assessment & Plan (01/18/2024 7:41 AM CDT): Continue with dialysis 3 times a week. Continue calcium acetate. Labs with dialysis. Preoperative cardiovascular examination 09/20/19 22 Chronic heart failure with preserved ejection fr action 07/02/2019 Assessment & Plan (04/28/2024 2:26 PM MULTIFOCAL BUTTON GRINDER): Stable, continue metoprolol, monitor weights with HD Assessment & Plan (03/20/2024 8:08 PM MULTIFOCAL BUTTON GRINDER): Stable on exam, continue metoprolol, monitor I/O, [...] 02/04 Assessment & Plan (04/06/2024 8:06 PM MULTIFOCAL BUTTON GRINDER): Weight is stable since rehab admission, continue exercise as tolerated, RD following Assessment & Plan (03/20/2024 8:09 PM MULTIFOCAL BUTTON GRINDER): Mobility is improving, recently stopped TF and [...] 02/04 Assessment & Plan (04/13/2024 12:48 PM MULTIFOCAL BUTTON GRINDER): Stable/compensated, continue HD treatments, weekly weights, metoprolol, statin inder cox Assessment & Plan (03/20/2024 8:08 PM MULTIFOCAL BUTTON GRINDER): Stable on metoprolol and amiodarone, continue HD [...] a associated with type 2 diabetes mellitus ([facility]) 05/20/2013 Overview (08/11/2016): DMII WO CMP UNCNTRLD Assessment & Plan (04/13/2024 12:48 PM MULTIFOCAL BUTTON GRINDER): Well controlled on lantus 18 units hs with mealtime SSI, continue accuchecks ac and hs Assessment & Plan (03/15/2024 10:54 AM MULTIFOCAL BUTTON GRINDER): Glucose logs reviewed continue lantus 18 units [...] NOS Assessment & Plan (04/28/2024 2:28 PM MULTIFOCAL BUTTON GRINDER): Continue Lantus 18 units HS with mealtime SSI and daughter will assist with med administration Bp stable on metoprolol, monitor for BP goal ,140/<90 Continue accuchecks ac and hs Assessment & Plan (03/31/2024 2:28 PM MULTIFOCAL BUTTON GRINDER): Continue Lantus 18 units HS with mealtime SSI, glucose 236 this a.m., evening glucose 170, continue diabetic diet. BP stable on metoprolol Assessment & Plan (03/15/2024 10:53 AM MULTIFOCAL BUTTON GRINDER): BP stable on metoprolol 50mg daily, continue [...] NOS Assessment & Plan (04/13/2024 12:51 PM MULTIFOCAL BUTTON GRINDER): Subclinical hypothyroidism with TSH trending up to 92, encourage appropriate administration of medication in early a.m. on empty stomach, Synthroid increased to 200 mcg daily at previous visit with plan to repeat ths in 6 weeks, T3 and T4 normal Assessment & Plan (03/31/2024 2:30 PM MULTIFOCAL BUTTON GRINDER): Subclinical hypothyroidism with TSH trending up to 92, encourage appropriate administration of medication in early a.m. on empty stomach, Synthroid increased to 200 mcg daily Assessment & Plan (03/20/2024 8:09 PM MULTIFOCAL BUTTON GRINDER): Inpatient workup with Tsh elevated with normal t4, ensure medication administration appropriate early am on empty stomach; repeat TSH this week Assessment & Plan (03/15/2024 10:54 AM MULTIFOCAL BUTTON GRINDER): Inpatient workup with Tsh elevated with normal [...] drink = 0.6 oz pur e alcohol) [facility] Utilities Answer Date Recorded In the past 12 months has [employer], gas, oil, or water [employer] threatened to shut off services in your [...] often do you attend chur ch or evangelical services? Never 02/26/2024 Do you belong to any clubs o r organizations such as hoahaoism groups, unions, fraternal or athletic groups, or [...] on file Legal Sex Female 10:22 AM MULTIFOCAL BUTTON GRINDER Gender Identity Not on file Sexual Orientation Not on file Last Filed Vital Signs Vital Sign Reading Time Taken Comments Blood Pressure 120/66 07/01/2024 9:38 AM MULTIFOCAL BUTTON GRINDER Pulse 55 07/01/2024 9:38 AM MULTIFOCAL BUTTON GRINDER Temperature 36.5 C (97.7 F) 03/03/2024 11:40 AM CDT Respiratory Rate 22 03/05/2024 8:31 AM CDT Oxygen Saturation 97% 07/01/2024 9:38 AM MULTIFOCAL BUTTON GRINDER Inhaled Oxygen Concentration - - Weight 89.7 kg (197 lb 11.2 oz) 07/01/2024 9:38 AM MULTIFOCAL BUTTON GRINDER Height 162.6 cm (5' 4) 07/01/2024 9:38 AM MULTIFOCAL BUTTON GRINDER Body Mass Index 33.94 07/01/2024 9:38 AM MULTIFOCAL BUTTON GRINDER Results * POCT lipid panel (07/01/2024 9:57 AM MULTIFOCAL BUTTON GRINDER) Cholesterol, POC 138 mg/dL Comment:GLU = 176 HDL, POC 17 mg/dL Triglycerides, POC 168 mg/dL LDL Cholesterol POC 88 mg/dL Chol/HDL Ratio, POC 5.2 Non-HDL Cholesterol, POC 121 mg/dL Cholesterol Total, POC 138 mg/dL Capillary blood 07/01/2024 9 :57 AM MULTIFOCAL BUTTON GRINDER us Uriel Gillette MD POINT OF CARE [...] LAB BLOOD ORDERABLES Final Resu lt [facility] [address] [facility] Department of Laboratories [place], [place] [id number] * (ABNORMAL) Hemoglobin A1c (02/27/2024 5:59 AM CDT) Hgb A1C 7.5(H) 4.0 - 5.6 % Estimated Average Glucose 169 mg/dL [facility] Comment: The ADA recommends reporting an estimated Average Glucose (eAG) with all Hemoglobin A1c results using the equation derived from a study of 507 normal and diabetic adults. Minority populations were underrepresented and children were not included. (Diabetes Care 31:1641-3593, 2008). The eAG is not equivalent to a fasting glucose. Blood 02/27/2024 5:59 AM CDT 02/27/2024 7:11 AM CDT Asif Delgadillo MD LAB BLOOD ORDERABLES Final Re sult Performing Organization Address City/[facility]/ZIP Co de Phone Number [facility] [address] [facility] Department [place] [address] * Hepatitis panel, acute (05/08/2022 3:59 PM MULTIFOCAL BUTTON GRINDER) Hep A IgM Nonreactive Nonreactive [facility] Comment: Interpretive Data: If Hep A IgM Ab is reported as Equivocal, a new sample should be drawn in two weeks for testing. Current interpretive data was last revised on 19. Hep B core IgM Nonreactive Nonreactive [facility] Comment: Interpretive Data If HepB Core IgM Ab is reported as Equivocal, a new sample should be drawn in two weeks for testing. Current interpretive data was last revised on 19. Hep C Ab Nonreactive Nonreactive [facility] Comment: Interpretive Data Nonreactive: Antibodies to [...] last revised on 2019. HepBsAg Nonreactive Nonreactive [facility] Blood 05/08/2022 3:59 PM MULTIFOCAL BUTTON GRINDER 05/08/2022 3:59 PM MULTIFOCAL BUTTON GRINDER Mellissa Garcia DO LAB MICROBIOLOGY - GENERAL ORD ERABLES Final Result [facility] [address] Department [place] [address] from Last 3 Months or Most Recently Relevant to Health Maintenance
--- OUTSIDE RECORDS SUMMARY | 2025-03-07 19:26 | XMS_ITS | Clinical Summary ---
Author Organization [facility] Address [address] [place] [id number] Care Team Providers Care Project Eng Name Role Phone Unavailable Primary Care Provider [...] - 1-dose 75+ series) 12/27/2023 COVID-19 Vaccine (1 - 2024-2 6 season) 2025 Influenza Adult (#1) 2025 Hepatitis A Vaccines Aged Out No long er eligible based on patient's age to complete this topic Meningococcal B Vaccine Aged Out No l onger eligible based on patient's age to complete this topic Meningococcal Vaccine Aged Out No clarisa penelope eligible based on patient's age to complete this topic RSV Immunizations Under 20 Months Aged Out No longer eligible based on patient's age to complete this topic
--- OUTSIDE RECORDS SUMMARY | 2025-03-07 20:11 | XMS_ITS | Clinical Summary ---
Author Organization [facility] Address [address] [place] [address] Care Team Providers Care Science Consultant Name Role Phone Family [facility] Rostovclaribel [...] Comments Blood Pressure 129/59 05/28/2022 8:00 AM SHANK SCOURER Pulse 76 05/28/2022 8:00 AM SHANK SCOURER Temperature 36.7 C (98 F) 05/28/2022 8:00 AM SHANK SCOURER Respiratory Rate 20 05/28/2022 8:00 AM SHANK SCOURER Oxygen Saturation 96% 05/28/2022 8:00 AM SHANK SCOURER Inhaled Oxygen Concentration - - Weight 111.6 kg (246 lb) 05/28/2022 6:37 AM SHANK SCOURER Height 162.6 cm (5' 4) 05/13/2022 5:19 PM SHANK SCOURER Body Mass Index 42.23 05/13/2022 5:19 PM SHANK SCOURER Plan of Treatment Health Maintenance Due Date [...] 6:45 PM 05/13/2022 6:03 PM Care Teams Science Consultant Relationship Specialty Start Date End Date [facility]io [facility] And [address] [place] [address] [address] [facility] [address] [place] [id number] PCP - General 05/14/22
--- OUTSIDE RECORDS SUMMARY | 2025-03-07 20:11 | XMS_ITS | Clinical Summary ---
Author Organization [facility] Address [address] [address] Phone Care Team Providers Care Rip Saw Operator Name Role Phone Rikki Amezquita MD Primary Care Provider [phone] Allergies Active Allergy Reactions Criticality Noted Date [...] (#1) 2025 03/07/2022, 2020 Insurance MEDICARE MEDICARE [facility] MEDICARE [facility] MEDICARE [facility] Member Subscriber Plan / Payer (Ef fective 2024-Present) Name:Gregoria Rae Relation to Subscriber:Self Name:Gregoria Rae Subscriber ID:Not on file Payer ID:[id number] Group ID:Not on file Type:Not on file Address: [place] [id number] Care Teams Rip Saw Operator Relationship Specialty Start Date End Date Rikki Amezquita MD [address] [facility] [address] [facility] [address] [place] [address] PCP - General Internal Medicine 03/07/22
--- OUTSIDE RECORDS SUMMARY | 2025-03-07 20:12 | XMS_ITS | Clinical Summary ---
Author Organization [facility] Address [address] [place] [address] Care Team Providers Care Fish Tender Name Role Phone Rikki Amezquita MD Primary Care Provider [phone] Source Comments [facility],non-owned Affiliates and Associated Physician Practices is amultiple site organization consisting of ambulatory clinics and hospital sitesin [place], [place], [place] and [place]. This disclosure is being madepursuant to the Care Everywhere program and may not contain all information available regarding this patient. Last updated 18.[facility] Allergies Active Allergy Reactions Criticality Noted Date [...] fluticasone propionate (Flonase) 50 MCG/ACT nasal spray [place] 2 (two) sprays into the nose once daily Active LORazepam (Ativan) 0.5 MG tablet 1 (one) tablet by Enteral route every 8 hours as needed Active nystatin (Mycostatin) 035564 UNIT/GM powder Apply 1 Application to affected [...] - 03/03/2025 11:59 PM CDT Hospital Encounter [facility] V[facility] [id number] [place] [address], [place] [address] Fernando Couch MD Vo, MD Abbe Discharge [...] Oxygen Concentration 40% 04/12/2022 3 :16 PM PLASTER LATHER Weight 108.9 kg (240 lb) 03/03/2025 1:27 PM CDT Height 162.6 cm (5' 4) 03/03/2025 1:27 PM CDT Body Mass Index 41.2 03/03/2025 1:27 PM CDT Plan of Treatment Upcoming Encounters Date Type Department Care Team (Late st Contact Info) Description 06/23/2025 2:45 PM PLASTER LATHER Appointment [facility] [address] [place] [address], [place] [phone] Health Maintenance Due Date Last Done Comments [...] 2:13 PM [facility] Patient Name: Gregoria Rae : [...] was advanced under fluoroscopy and a 5 Latvian catheter placed. Digital subtraction images were obtained [...] lt from Last 3 Months Insurance MEDICARE [facility] MEDICARE Advance Directives * Full Code (Latest Code Status on File) Date Activated Date Inactivated Comments 05/14/2022 8:26 AM 05/28/2022 12:06 PM Care Teams Fish Tender Relationship Specialty Start Date End Date Rikki Amezquita MD [address] [place] [address] PCP - General 11/28/21
--- OUTSIDE RECORDS SUMMARY | 2025-03-07 20:14 | XMS_ITS ---
Author Organization [facility] Address [address] [place] [address] Care Team Providers Care Deburring Technician Name Role Phone Mona Currie MD PhD Unavailable [phone] Sammy Shepard MD Unavailable [phone] Rikki Amezquita MD Primary Care Provider Dialysis Access Sites Type Status Location Placement Date Removal Da te Hemodialysis AV Access Upper arm Active Left Upper Arm - Anterior Procedures Procedure Name Priority Date/Time Associated Diagnosis Comments POCT LIPID PANEL Routine 07/01/2024 9:57 AM RECREATION PROFESSOR Need for lipid screening EGFR Routine 03/03/2024 6:45 AM CDT HEMOGLOBIN A1C Routine 02/27/2024 5:59 AM CDT HEPATITIS PANEL, ACUTE STAT 05/08/2022 3:59 PM RECREATION PROFESSOR from Last 3 Months or Most Recently Relevant to Health Maintenance Allergies Active Allergy Reactions Criticality Noted Date Comments Diphenhydramine Other (See comments) Low Restless leg Nickel Rash Medium Nifedipine Chest tightness Medium Kftvlwf-Pik-Ujc Reductase Inhibitors Muscle pain Medium Sulfa Hives [...] tablet (20 mg total) nightly Active banana mzczfx-NVC-ewv er 5 gram-45 kcal/60 mL liquid in [...] tube 1 tablet (200 mcg total) manager ethics before breakfast 4 Active Additional Information Patient [...] 04/13/2024 Assessment & Plan (04/28/2024 2:26 PM RECREATION PROFESSOR): Stable on room air, continue trelegy, spiriva, prn duonebs Assessment & Plan (04/13/2024 12:50 PM RECREATION PROFESSOR): Stable on room air, continue trelegy, spiriva, [...] 02/26/2024 Assessment & Plan (04/28/2024 2:29 PM RECREATION PROFESSOR): Hb 9-10 at baseline, stable, continue epogen [...] 01/25/2024 Assessment & Plan (04/28/2024 2:25 PM RECREATION PROFESSOR): Tube removed, keep healing stoma clean, dry, covered. F/u with PCP Assessment & Plan (04/13/2024 12:46 PM RECREATION PROFESSOR): Recently pulled out by patient, surgical site is healing, continue to clean daily and cover with dry gauze Assessment & Plan (04/09/2024 1:53 PM RECREATION PROFESSOR): Ok to keep tube out, cover area daily with dry gauze until healed, notify provider for change in condition or sx of dysphagia Assessment & Plan (04/06/2024 8:05 PM RECREATION PROFESSOR): Now tolerating PO, likely could permanently DC soon, continue with h2o flushes for now Assessment & Plan (03/15/2024 10:55 AM RECREATION PROFESSOR): Continue to flush q.i.d., able to tolerate food by mouth, WARD SERVICE SUPERVISOR following Assessment & Plan (03/06/2024 9:49 [...] on imaging, continue nepro at 40ml/hr with WARD SERVICE SUPERVISOR following for repeat swallow studies Hyperkalemia 01/18/2024 Assessment & Plan (01/18/2024 7:41 AM CDT): Improved after treatment at the hospital. Continue to monitor with dialysis. 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 01/18/2024 Assessment & Plan (04/28/2024 2:31 PM RECREATION PROFESSOR): Has some improvement with therapy but remains weak with hemiparesis and aphasia, requires full care for all ADLs, unable to reposition self and will require electric hospital bed at home, ongoing PT/OT Contonie asa, statin, eliquis Heart healthy diet with exercise as tolerated Maintain BP and glycemic control F/u PCP Assessment & Plan (04/13/2024 12:49 PM RECREATION PROFESSOR): Deficits improving have seem to stabilize now ambulatory with walker and gait belt, tolerating PO, speech garbled, continue statin, eliquis, heart healthy diet with exercise as tolerated; may need to transfer to LTC vs home with home health and family to care Assessment & Plan (04/09/2024 1:53 PM RECREATION PROFESSOR): Deficits improving, now ambulatory with walker and gait belt, tolerating PO, speech remains garbled, continue statin, eliquis, heart healthy diet with exercise as tolerated Assessment & Plan (04/06/2024 8:08 PM RECREATION PROFESSOR): Improving with therapies, now ambulatory and tolerating PO, speech remains garbled, continue statin, eliquis, heart healthy diet with exercise as tolerated Assessment & Plan (03/31/2024 2:26 PM RECREATION PROFESSOR): Speech and mobility improving, now ambulatory with walker and gait belt. Continue PT/OT/WARD SERVICE SUPERVISOR, continue statin and Eliquis, maintain BP and glycemic control Assessment & Plan (03/20/2024 8:07 PM RECREATION PROFESSOR): Improving with therapy, continue statin and Eliquis, maintain BP and glycemic control. Continue PT OT, WARD SERVICE SUPERVISOR, remains a fall risk F/u with neurology as scheduled, plans to DC home with Assessment & Plan (03/15/2024 10:51 AM RECREATION PROFESSOR): Improving with therapy, continue statin and Eliquis, maintain BP and glycemic control. Continue PT OT, WARD SERVICE SUPERVISOR, remains a fall risk Assessment & Plan (03/06/2024 9:49 PM CDT): Stable, improving with therapies, continue statin, eliquis, PT/OT/WARD SERVICE SUPERVISOR, supportive care, continue to advance diet as tolerated Assessment & Plan (02/27/2024 3:02 PM CDT): Stable, improving with therapies, continue statin, eliquis, PT/OT/WARD SERVICE SUPERVISOR, supportive care with plans to DC home following rehab stay Assessment & Plan (02/20/2024 1:56 PM CDT): Deficits improving with therapy, continue statin and eliquis, PT/OT/WARD SERVICE SUPERVISOR with video swallow scheduled Continue bID zyprexa 2.5mg for now, may tolerate GDR at subsequent visit Assessment & Plan (02/19/2024 10:51 AM CDT): Improving with therapy, no recurrent episodes of agitation since starting BID zyprexa, continue statin and eliquis, PT/OT/WARD SERVICE SUPERVISOR with video swallow scheduled Assessment & Plan (02/11/2024 1:32 PM CDT): Improving, continue statin and eliquis, PT/OT. WARD SERVICE SUPERVISOR following for advancement of diet, will schedule Zyprexa 2.5mg HS rather than In am, conitnue supportive care, fall precautions Assessment & Plan (02/08/2024 3:56 PM CDT): Mobility and speech improving with intermittent agitation, fall risk, zyprexa increased to 2.5mg daily as unable to be redirected at times. Continue statin, eliquis, PT/TO/WARD SERVICE SUPERVISOR, TF zainab per RD recs Assessment & Plan (02/03/2024 8:55 AM CDT): Mobility is improving, remains aphasic, able to follow simple commands and has spontaneous movements of all extremities; continue statin, eliquis, glycemic control, BP management, PT/OT/WARD SERVICE SUPERVISOR Assessment & Plan (02/01/2024 9:33 AM CDT): Mobility is improving, intermittent anxiety, will need to monitor and provide supportive care, attempt to avoid benzos or antipsychotics although may need prn low dose meds due to fall risk and inability to be redirected; continue statin, eliquis, glycemic control, BP management, PT/OT/WARD SERVICE SUPERVISOR Assessment & Plan (01/28/2024 2:35 PM [...] & Plan (01/25/2024 12:46 PM CDT): Ongoing PT/OT/WARD SERVICE SUPERVISOR with generalized weakness, aphasia and R sided facial droop, follows some simple commands, continue statin and eliquis; monitor for fall risk given intermittent agitation; no new meds today but may need PRN due to fall risk Assessment & Plan (01/25/2024 11:13 AM CDT): Mobility is improving now at times getting out of bed without help, continue to monitor for fall risk, PT/OT/WARD SERVICE SUPERVISOR; continue statin and eliquis Assessment & Plan (01/18/2024 5:52 PM CDT): Ongoing R sided weakness, R sided facial droop, aphasia; reports some improvement in spontaneous movement and mumbling. Continue asa, statin, eliquis; of note has documented statin intolerance, will need to find out specifics Continue PT/OT WARD SERVICE SUPERVISOR , tube feeds for now with plans for repeat video swallow Type 2 diabetes mellitus with renal complication 01/18/2024 Assessment & Plan (04/09/2024 1:54 PM RECREATION PROFESSOR): Glucose logs reviewed and stable, continue HS lantus and mealtime SSI, will try to DC SSI prior to DC home Assessment & Plan (04/06/2024 8:06 PM RECREATION PROFESSOR): Stable, continue HS lantus and mealtime SSI, [...] 04/11/2023 At risk for amiodarone toxicity with termite exterminator u se 10/06/2022 Chronic anticoagulation 10/06/2022 Paroxysmal atrial fibrillation 10/06/2022 Assessment & Plan (04/28/2024 2:28 PM RECREATION PROFESSOR): Rate controlled, continue metoprolol, amiodarone, eliquis F/u cardiology dr wiley Assessment & Plan (04/13/2024 12:46 PM RECREATION PROFESSOR): Rate controlled on exam; continue metoprolol, amiodarone, Eliquis ; no recent falls Assessment & Plan (04/06/2024 8:06 PM RECREATION PROFESSOR): Rate controlled; continue metoprolol, amiodarone, Eliquis Assessment & Plan (03/31/2024 2:29 PM RECREATION PROFESSOR): Rate controlled on metoprolol, amiodarone; continue b.i.d. Eliquis Assessment & Plan (03/20/2024 8:09 PM RECREATION PROFESSOR): Stable on metoprolol, amiodarone and eliquis, conitnue [...] 10/06/2022 Assessment & Plan (04/28/2024 2:26 PM RECREATION PROFESSOR): Continue treatments outpatient MWF, epogen on HD days, f/u with nephrology Assessment & Plan (04/09/2024 1:54 PM RECREATION PROFESSOR): Tolerating HD MWF, at times using p.r.n. lorazepam with HD treatment, anxiety during access. Monitor electrolytes and weight Continue Epogen Assessment & Plan (04/06/2024 8:08 PM RECREATION PROFESSOR): Continue HD MWF, p.r.n. lorazepam with HD treatment. Monitor electrolytes and weight Continue Epogen Assessment & Plan (03/31/2024 2:26 PM RECREATION PROFESSOR): Continue HD MWF, continues to use p.r.n. lorazepam with HD treatments; daughter states this is helping,. Monitor electrolytes and weight Continue Epogen Assessment & Plan (03/20/2024 8:08 PM RECREATION PROFESSOR): Continue HD MWF, continue to monitor electrolytes and weight, may use p.r.n. lorazepam with HD treatments; no reports of recent agitation with treatments Assessment & Plan (03/15/2024 10:52 AM RECREATION PROFESSOR): Continue HD MWF, continue to monitor electrolytes [...] 3:59 PM CDT): Receiving treatments MWF at [facility] [place], intermittent anxiety, increase zyprexa to daily, may [...] 5:55 PM CDT): Continue treatments MWF at [facility] [place], TID calcium acetate, nephrology following, nepro tube feeds ordered, starting on jevity on admission due to no nepro available Assessment & Plan (01/18/2024 7:41 AM CDT): Continue with dialysis 3 times a week. Continue calcium acetate. Labs with dialysis. Preoperative cardiovascular examination 09/20/19 22 Chronic heart failure with preserved ejection fr action 07/02/2019 Assessment & Plan (04/28/2024 2:26 PM RECREATION PROFESSOR): Stable, continue metoprolol, monitor weights with HD Assessment & Plan (03/20/2024 8:08 PM RECREATION PROFESSOR): Stable on exam, continue metoprolol, monitor I/O, [...] 02/04 Assessment & Plan (04/06/2024 8:06 PM RECREATION PROFESSOR): Weight is stable since rehab admission, continue exercise as tolerated, RD following Assessment & Plan (03/20/2024 8:09 PM RECREATION PROFESSOR): Mobility is improving, recently stopped TF and [...] 02/04 Assessment & Plan (04/13/2024 12:48 PM RECREATION PROFESSOR): Stable/compensated, continue HD treatments, weekly weights, metoprolol, statin inder cox Assessment & Plan (03/20/2024 8:08 PM RECREATION PROFESSOR): Stable on metoprolol and amiodarone, continue HD [...] a associated with type 2 diabetes mellitus ([facility]) 05/20/2013 Overview (08/11/2016): DMII WO CMP UNCNTRLD Assessment & Plan (04/13/2024 12:48 PM RECREATION PROFESSOR): Well controlled on lantus 18 units hs with mealtime SSI, continue accuchecks ac and hs Assessment & Plan (03/15/2024 10:54 AM RECREATION PROFESSOR): Glucose logs reviewed continue lantus 18 units [...] NOS Assessment & Plan (04/28/2024 2:28 PM RECREATION PROFESSOR): Continue Lantus 18 units HS with mealtime SSI and daughter will assist with med administration Bp stable on metoprolol, monitor for BP goal ,140/<90 Continue accuchecks ac and hs Assessment & Plan (03/31/2024 2:28 PM RECREATION PROFESSOR): Continue Lantus 18 units HS with mealtime SSI, glucose 236 this a.m., evening glucose 170, continue diabetic diet. BP stable on metoprolol Assessment & Plan (03/15/2024 10:53 AM RECREATION PROFESSOR): BP stable on metoprolol 50mg daily, continue [...] NOS Assessment & Plan (04/13/2024 12:51 PM RECREATION PROFESSOR): Subclinical hypothyroidism with TSH trending up to 92, encourage appropriate administration of medication in early a.m. on empty stomach, Synthroid increased to 200 mcg daily at previous visit with plan to repeat ths in 6 weeks, T3 and T4 normal Assessment & Plan (03/31/2024 2:30 PM RECREATION PROFESSOR): Subclinical hypothyroidism with TSH trending up to 92, encourage appropriate administration of medication in early a.m. on empty stomach, Synthroid increased to 200 mcg daily Assessment & Plan (03/20/2024 8:09 PM RECREATION PROFESSOR): Inpatient workup with Tsh elevated with normal t4, ensure medication administration appropriate early am on empty stomach; repeat TSH this week Assessment & Plan (03/15/2024 10:54 AM RECREATION PROFESSOR): Inpatient workup with Tsh elevated with normal [...] Recorded In the past 12 months has [employer], gas, oil, or water [employer] threatened to shut off services in your [...] often do you attend chur ch or catholic services? Never 02/26/2024 Do you belong to any clubs o r organizations such as scientologist groups, unions, fraternal or athletic groups, or [...] place to sleep or slept in a chcf (including now)? No 05/13/2021 Housing Stability Vital Sign Answer Yonathan e Recorded In the last 12 months, was t here a time when you were not able to pay the mortgage or rent on time? No 02/26/2024 In the past 12 months, how m any times have you moved where you were living? 0 02/26/2024 At any time in the past 12 m [facility], were you homeless or living in a chcf (including now)? No 02/26/2024 Personal Safety Answer Date Recorded Have you ever been in or are you currently in a harmful physical or emotional relationship or is someone making you feel afraid or unsafe? Denies 02/25/2024 Comments No Sex and Gender Information Value Date Recorded Sex Assigned at Not on file Legal Sex Female 10:22 AM RECREATION PROFESSOR Gender Identity Not on file Sexual Orientation Not on file Last Filed Vital Signs Vital Sign Reading Time Taken Comments Blood Pressure 120/66 07/01/2024 9:38 AM RECREATION PROFESSOR Pulse 55 07/01/2024 9:38 AM RECREATION PROFESSOR Temperature 36.5 C (97.7 F) 03/03/2024 11:40 AM CDT Respiratory Rate 22 03/05/2024 8:31 AM CDT Oxygen Saturation 97% 07/01/2024 9:38 AM RECREATION PROFESSOR Inhaled Oxygen Concentration - - Weight 89.7 kg (197 lb 11.2 oz) 07/01/2024 9:38 AM RECREATION PROFESSOR Height 162.6 cm (5' 4) 07/01/2024 9:38 AM RECREATION PROFESSOR Body Mass Index 33.94 07/01/2024 9:38 AM RECREATION PROFESSOR Results * POCT lipid panel (07/01/2024 9:57 AM RECREATION PROFESSOR) Cholesterol, POC 138 mg/dL Comment:GLU = 176 HDL, POC 17 mg/dL Triglycerides, POC 168 mg/dL LDL Cholesterol POC 88 mg/dL Chol/HDL Ratio, POC 5.2 Non-HDL Cholesterol, POC 121 mg/dL Cholesterol Total, POC 138 mg/dL Capillary blood 07/01/2024 9 :57 AM RECREATION PROFESSOR us Uriel Gillette MD POINT OF CARE [...] LAB BLOOD ORDERABLES Final Resu lt [facility] [address] [facility] Department of Laboratories [place], [place] [id number] * (ABNORMAL) Hemoglobin A1c (02/27/2024 5:59 AM CDT) Hgb A1C 7.5(H) 4.0 - 5.6 % Estimated Average Glucose 169 mg/dL [facility] Comment: The ADA recommends reporting an estimated Average Glucose (eAG) with all Hemoglobin A1c results using the equation derived from a study of 507 normal and diabetic adults. Minority populations were underrepresented and children were not included. (Diabetes Care 31:9385-0468, 2008). The eAG is not equivalent to a fasting glucose. Blood 02/27/2024 5:59 AM CDT 02/27/2024 7:11 AM CDT Asif Delgadillo MD LAB BLOOD ORDERABLES Final Re sult Performing Organization Address City/[facility]/ZIP Co de Phone Number [facility] [address] [facility] Department [place] [address] * Hepatitis panel, acute (05/08/2022 3:59 PM RECREATION PROFESSOR) Hep A IgM Nonreactive Nonreactive [facility] Comment: Interpretive Data: If Hep A IgM Ab is reported as Equivocal, a new sample should be drawn in two weeks for testing. Current interpretive data was last revised on 19. Hep B core IgM Nonreactive Nonreactive [facility] Comment: Interpretive Data If HepB Core IgM Ab is reported as Equivocal, a new sample should be drawn in two weeks for testing. Current interpretive data was last revised on 19. Hep C Ab Nonreactive Nonreactive [facility] Comment: Interpretive Data Nonreactive: Antibodies to HCV [...] last revised on 2019. HepBsAg Nonreactive Nonreactive [facility] Blood 05/08/2022 3:59 PM RECREATION PROFESSOR 05/08/2022 3:59 PM RECREATION PROFESSOR Mellissa Garcia DO LAB MICROBIOLOGY - GENERAL ORD ERABLES Final Result [facility] [address] [place] [address] from Last 3 Months or Most Recently Relevant to Health Maintenance
--- OUTSIDE RECORDS SUMMARY | 2025-03-07 20:14 | XMS_ITS | Encounter Summary ---
Author Organization [facility] Address [address] [place] [address] Care Team Providers Care Technical Translator Name Role Phone Rikki Amezquita MD Primary Care Provider [phone] Reason for Referral * Radiology Services (Routine) - Closed Specialty Diagnoses / Procedures Referred By Contac t Referred To Contact Vascular Lab Diagnoses ESRD (end stage renal disease) on dialysis (HCC) Procedures IR [facility] Paul Chandler MD [address] [place] [address] [place] [id number] Phone: tel: fax: [facility] [address] [place] [address], [address] [place] [address] Phone: tel: fax: Referral ID Status Reason Start Date Expiration Date Visits Re quested Visits Authorized [id number] Closed 10/01/2024 10/30/2024 1 1 Encounter Details Date Type Department Care Team (Late st Contact Info) Description 10/01/2024 Telephone [facility] [address] [place] [address], [address] [place] [address] Johana Kent, RN Social History [...] st Contact Info) Description 06/23/2025 2:45 PM PLANT ATTENDANT OR ASSISTANT OPERATOR Appointment [facility] [address] [place] [address], [place] [address] documented as of this encounter Results * IR Angio [facility] (10/30/2024 10:20 AM CDT) Anatomical Region Laterality Modality Lower Extremity, Upper Extremity, Chest X-Ray Angiography Narrative 10/30/2024 10:27 AM CDT Fernando Couch MD 10/30/2024 10:39 AM Interventional Radiology Post-Operative/Procedure Progress Notes Date: 10/30/2024 Surgeon: Fernando Couch MD Swing Manager: GREG Staff Pre-Procedure diagnosis: ESRD, outflow vein stenosis Time out and final pre-procedure assessment completed immediately prior to start of procedure. Medications reviewed. Post-Procedure diagnosis: Same Anesthesia: Local and IV Sedation Technical Procedure Performed and Findings: Contrast: 15 ml Radiation dose: 9.4 mGy The fluoroscopy time has been recorded in the electronic medical record. SEDATION: Moderate IV conscious sedation was administered by Dr. Couhc using 0.5 mg of Versed and 50 [...] was obtained. Prior to beginning the procedure, [place] Protocol was performed to confirm the patient's [...] graft followed by placement of a 5 namibian catheter. Fluoroscopy was used for all catheter [...] disease documented in this encounter Care Teams Technical Translator Relationship Specialty Start Date End Date Rikki Amezquita MD [address] [place] [address] PCP - General 11/28/21 documented as of this encounter
--- OUTSIDE RECORDS SUMMARY | 2025-03-07 20:14 | XMS_ITS | Clinical Summary ---
Author Organization [facility] Address [address] [place] [id number] Care Team Providers Care Stonemason Helper Name Role Phone Unavailable Primary Care Provider [...]
--- OUTSIDE RECORDS SUMMARY | 2025-03-07 20:14 | XMS_ITS | Clinical Summary ---
Author Organization [facility] Address [address] [place] [address] Care Team Providers Care Fitness Supervisor Name Role Phone Mona Currie MD PhD Unavailable [phone] Sammy Shepard MD Unavailable Rikki Amezquita MD Primary Care Provider Allergies Active Allergy Reactions Criticality Noted Date Comments Diphenhydramine Other (See comments) Low Restless leg Nickel Rash Medium Nifedipine Chest tightness Medium Aztgbhe-Pbd-Fzc Reductase Inhibitors Muscle pain Medium Sulfa Hives [...] tablet (20 mg total) nightly Active banana ojttpu-PCP-ups er 5 gram-45 kcal/60 mL liquid in [...] per tube 1 tablet (200 mcg total) bolt maker before breakfast 4 Active Additional Information Patient [...] 04/13/2024 Assessment & Plan (04/28/2024 2:26 PM MANAGER INTELLIGENCE): Stable on room air, continue trelegy, spiriva, prn duonebs Assessment & Plan (04/13/2024 12:50 PM MANAGER INTELLIGENCE): Stable on room air, continue trelegy, spiriva, [...] 02/26/2024 Assessment & Plan (04/28/2024 2:29 PM MANAGER INTELLIGENCE): Hb 9-10 at baseline, stable, continue epogen [...] 01/25/2024 Assessment & Plan (04/28/2024 2:25 PM MANAGER INTELLIGENCE): Tube removed, keep healing stoma clean, dry, covered. F/u with PCP Assessment & Plan (04/13/2024 12:46 PM MANAGER INTELLIGENCE): Recently pulled out by patient, surgical site is healing, continue to clean daily and cover with dry gauze Assessment & Plan (04/09/2024 1:53 PM MANAGER INTELLIGENCE): Ok to keep tube out, cover area daily with dry gauze until healed, notify provider for change in condition or sx of dysphagia Assessment & Plan (04/06/2024 8:05 PM MANAGER INTELLIGENCE): Now tolerating PO, likely could permanently DC soon, continue with h2o flushes for now Assessment & Plan (03/15/2024 10:55 AM MANAGER INTELLIGENCE): Continue to flush q.i.d., able to tolerate food by mouth, PHYSICAL THERAPY INSTRUCTOR following Assessment & Plan (03/06/2024 9:49 PM [...] on imaging, continue nepro at 40ml/hr with PHYSICAL THERAPY INSTRUCTOR following for repeat swallow studies Hyperkalemia 01/18/2024 Assessment & Plan (01/18/2024 7:41 AM CDT): Improved after treatment at the hospital. Continue to monitor with dialysis. 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 01/18/2024 Assessment & Plan (04/28/2024 2:31 PM MANAGER INTELLIGENCE): Has some improvement with therapy but remains weak with hemiparesis and aphasia, requires full care for all ADLs, unable to reposition self and will require electric hospital bed at home, ongoing PT/OT Contonie asa, statin, eliquis Heart healthy diet with exercise as tolerated Maintain BP and glycemic control F/u PCP Assessment & Plan (04/13/2024 12:49 PM MANAGER INTELLIGENCE): Deficits improving have seem to stabilize now ambulatory with walker and gait belt, tolerating PO, speech garbled, continue statin, eliquis, heart healthy diet with exercise as tolerated; may need to transfer to LTC vs home with home health and family to care Assessment & Plan (04/09/2024 1:53 PM MANAGER INTELLIGENCE): Deficits improving, now ambulatory with walker and gait belt, tolerating PO, speech remains garbled, continue statin, eliquis, heart healthy diet with exercise as tolerated Assessment & Plan (04/06/2024 8:08 PM MANAGER INTELLIGENCE): Improving with therapies, now ambulatory and tolerating PO, speech remains garbled, continue statin, eliquis, heart healthy diet with exercise as tolerated Assessment & Plan (03/31/2024 2:26 PM MANAGER INTELLIGENCE): Speech and mobility improving, now ambulatory with walker and gait belt. Continue PT/OT/PHYSICAL THERAPY INSTRUCTOR, continue statin and Eliquis, maintain BP and glycemic control Assessment & Plan (03/20/2024 8:07 PM MANAGER INTELLIGENCE): Improving with therapy, continue statin and Eliquis, maintain BP and glycemic control. Continue PT OT, PHYSICAL THERAPY INSTRUCTOR, remains a fall risk F/u with neurology as scheduled, plans to DC home with Assessment & Plan (03/15/2024 10:51 AM MANAGER INTELLIGENCE): Improving with therapy, continue statin and Eliquis, maintain BP and glycemic control. Continue PT OT, PHYSICAL THERAPY INSTRUCTOR, remains a fall risk Assessment & Plan (03/06/2024 9:49 PM CDT): Stable, improving with therapies, continue statin, eliquis, PT/OT/PHYSICAL THERAPY INSTRUCTOR, supportive care, continue to advance diet as tolerated Assessment & Plan (02/27/2024 3:02 PM CDT): Stable, improving with therapies, continue statin, eliquis, PT/OT/PHYSICAL THERAPY INSTRUCTOR, supportive care with plans to DC home following rehab stay Assessment & Plan (02/20/2024 1:56 PM CDT): Deficits improving with therapy, continue statin and eliquis, PT/OT/PHYSICAL THERAPY INSTRUCTOR with video swallow scheduled Continue bID zyprexa 2.5mg for now, may tolerate GDR at subsequent visit Assessment & Plan (02/19/2024 10:51 AM CDT): Improving with therapy, no recurrent episodes of agitation since starting BID zyprexa, continue statin and eliquis, PT/OT/PHYSICAL THERAPY INSTRUCTOR with video swallow scheduled Assessment & Plan (02/11/2024 1:32 PM CDT): Improving, continue statin and eliquis, PT/OT. PHYSICAL THERAPY INSTRUCTOR following for advancement of diet, will schedule Zyprexa 2.5mg HS rather than In am, conitnue supportive care, fall precautions Assessment & Plan (02/08/2024 3:56 PM CDT): Mobility and speech improving with intermittent agitation, fall risk, zyprexa increased to 2.5mg daily as unable to be redirected at times. Continue statin, eliquis, PT/TO/PHYSICAL THERAPY INSTRUCTOR, TF nepro per RD recs Assessment & Plan (02/03/2024 8:55 AM CDT): Mobility is improving, remains aphasic, able to follow simple commands and has spontaneous movements of all extremities; continue statin, eliquis, glycemic control, BP management, PT/OT/PHYSICAL THERAPY INSTRUCTOR Assessment & Plan (02/01/2024 9:33 AM CDT): Mobility is improving, intermittent anxiety, will need to monitor and provide supportive care, attempt to avoid benzos or antipsychotics although may need prn low dose meds due to fall risk and inability to be redirected; continue statin, eliquis, glycemic control, BP management, PT/OT/PHYSICAL THERAPY INSTRUCTOR Assessment & Plan (01/28/2024 2:35 PM CDT): [...] & Plan (01/25/2024 12:46 PM CDT): Ongoing PT/OT/PHYSICAL THERAPY INSTRUCTOR with generalized weakness, aphasia and R sided facial droop, follows some simple commands, continue statin and eliquis; monitor for fall risk given intermittent agitation; no new meds today but may need PRN due to fall risk Assessment & Plan (01/25/2024 11:13 AM CDT): Mobility is improving now at times getting out of bed without help, continue to monitor for fall risk, PT/OT/PHYSICAL THERAPY INSTRUCTOR; continue statin and eliquis Assessment & Plan (01/18/2024 5:52 PM CDT): Ongoing R sided weakness, R sided facial droop, aphasia; reports some improvement in spontaneous movement and mumbling. 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 10/06/2022 Chronic anticoagulation 10/06/2022 Paroxysmal atrial fibrillation 10/06/2022 Assessment & Plan (04/28/2024 2:28 PM MANAGER INTELLIGENCE): Rate controlled, continue metoprolol, amiodarone, eliquis F/u cardiology dr wiley Assessment & Plan (04/13/2024 12:46 PM MANAGER INTELLIGENCE): Rate controlled on exam; continue metoprolol, amiodarone, Eliquis ; no recent falls Assessment & Plan (04/06/2024 8:06 PM MANAGER INTELLIGENCE): Rate controlled; continue metoprolol, amiodarone, Eliquis Assessment & Plan (03/31/2024 2:29 PM MANAGER INTELLIGENCE): Rate controlled on metoprolol, amiodarone; continue b.i.d. Eliquis Assessment & Plan (03/20/2024 8:09 PM MANAGER INTELLIGENCE): Stable on metoprolol, amiodarone and eliquis, conitnue [...] 10/06/2022 Assessment & Plan (04/28/2024 2:26 PM MANAGER INTELLIGENCE): Continue treatments outpatient MWF, epogen on HD days, f/u with nephrology Assessment & Plan (04/09/2024 1:54 PM MANAGER INTELLIGENCE): Tolerating HD MWF, at times using p.r.n. lorazepam with HD treatment, anxiety during access. Monitor electrolytes and weight Continue Epogen Assessment & Plan (04/06/2024 8:08 PM MANAGER INTELLIGENCE): Continue HD MWF, p.r.n. lorazepam with HD treatment. Monitor electrolytes and weight Continue Epogen Assessment & Plan (03/31/2024 2:26 PM MANAGER INTELLIGENCE): Continue HD MWF, continues to use p.r.n. lorazepam with HD treatments; daughter states this is helping,. Monitor electrolytes and weight Continue Epogen Assessment & Plan (03/20/2024 8:08 PM MANAGER INTELLIGENCE): Continue HD MWF, continue to monitor electrolytes and weight, may use p.r.n. lorazepam with HD treatments; no reports of recent agitation with treatments Assessment & Plan (03/15/2024 10:52 AM MANAGER INTELLIGENCE): Continue HD MWF, continue to monitor electrolytes [...] 3:59 PM CDT): Receiving treatments MWF at [facility], intermittent anxiety, increase zyprexa to daily, may [...] 5:55 PM CDT): Continue treatments MWF at [facility], TID calcium acetate, nephrology following, nepro tube feeds ordered, starting on jevity on admission due to no nepro available Assessment & Plan (01/18/2024 7:41 AM CDT): Continue with dialysis 3 times a week. Continue calcium acetate. Labs with dialysis. Preoperative cardiovascular examination 09/20/19 22 Chronic heart failure with preserved ejection fr action 07/02/2019 Assessment & Plan (04/28/2024 2:26 PM MANAGER INTELLIGENCE): Stable, continue metoprolol, monitor weights with HD Assessment & Plan (03/20/2024 8:08 PM MANAGER INTELLIGENCE): Stable on exam, continue metoprolol, monitor I/O, [...] 02/04 Assessment & Plan (04/06/2024 8:06 PM MANAGER INTELLIGENCE): Weight is stable since rehab admission, continue exercise as tolerated, RD following Assessment & Plan (03/20/2024 8:09 PM MANAGER INTELLIGENCE): Mobility is improving, recently stopped TF and [...] 02/04 Assessment & Plan (04/13/2024 12:48 PM MANAGER INTELLIGENCE): Stable/compensated, continue HD treatments, weekly weights, metoprolol, statin amio, eliquis Assessment & Plan (03/20/2024 8:08 PM MANAGER INTELLIGENCE): Stable on metoprolol and amiodarone, continue HD [...] a associated with type 2 diabetes mellitus ([facility]) 05/20/2013 Overview (08/11/2016): DMII WO CMP UNCNTRLD Assessment & Plan (04/13/2024 12:48 PM MANAGER INTELLIGENCE): Well controlled on lantus 18 units hs with mealtime SSI, continue accuchecks ac and hs Assessment & Plan (03/15/2024 10:54 AM MANAGER INTELLIGENCE): Glucose logs reviewed continue lantus 18 units [...] NOS Assessment & Plan (04/28/2024 2:28 PM MANAGER INTELLIGENCE): Continue Lantus 18 units HS with mealtime SSI and daughter will assist with med administration Bp stable on metoprolol, monitor for BP goal ,140/<90 Continue accuchecks ac and hs Assessment & Plan (03/31/2024 2:28 PM MANAGER INTELLIGENCE): Continue Lantus 18 units HS with mealtime SSI, glucose 236 this a.m., evening glucose 170, continue diabetic diet. BP stable on metoprolol Assessment & Plan (03/15/2024 10:53 AM MANAGER INTELLIGENCE): BP stable on metoprolol 50mg daily, continue [...] NOS Assessment & Plan (04/13/2024 12:51 PM MANAGER INTELLIGENCE): Subclinical hypothyroidism with TSH trending up to 92, encourage appropriate administration of medication in early a.m. on empty stomach, Synthroid increased to 200 mcg daily at previous visit with plan to repeat ths in 6 weeks, T3 and T4 normal Assessment & Plan (03/31/2024 2:30 PM MANAGER INTELLIGENCE): Subclinical hypothyroidism with TSH trending up to 92, encourage appropriate administration of medication in early a.m. on empty stomach, Synthroid increased to 200 mcg daily Assessment & Plan (03/20/2024 8:09 PM MANAGER INTELLIGENCE): Inpatient workup with Tsh elevated with normal t4, ensure medication administration appropriate early am on empty stomach; repeat TSH this week Assessment & Plan (03/15/2024 10:54 AM MANAGER INTELLIGENCE): Inpatient workup with Tsh elevated with normal [...] on room air to complete PO abx, PHYSICAL THERAPY INSTRUCTOR to follow, DC on prn duonebs, likely [...] drink = 0.6 oz pur e alcohol) [facility] Utilities Answer Date Recorded In [...] often do you attend chur ch or hoahaoism services? Never 02/26/2024 Do you belong to any clubs o r organizations such as mormonism groups, unions, fraternal or athletic groups, or [...] any time in the past 12 m [place], were you homeless or living in a [...] on file Legal Sex Female 10:22 AM MANAGER INTELLIGENCE Gender Identity Not on file Sexual Orientation Not on file Obstetrics History Last Filed Vital Signs Vital Sign Reading Time Taken Comments Blood Pressure 120/66 07/01/2024 9:38 AM MANAGER INTELLIGENCE Pulse 55 07/01/2024 9:38 AM MANAGER INTELLIGENCE Temperature 36.5 C (97.7 F) 03/03/2024 11:40 AM CDT Respiratory Rate 22 03/05/2024 8:31 AM CDT Oxygen Saturation 97% 07/01/2024 9:38 AM MANAGER INTELLIGENCE Inhaled Oxygen Concentration - - Weight 89.7 kg (197 lb 11.2 oz) 07/01/2024 9:38 AM MANAGER INTELLIGENCE Height 162.6 cm (5' 4) 07/01/2024 9:38 AM MANAGER INTELLIGENCE Body Mass Index 33.94 07/01/2024 9:38 AM MANAGER INTELLIGENCE Plan of Treatment Health Maintenance Due Date [...] POCT LIPID PANEL Routine 07/01/2024 9:57 AM MANAGER INTELLIGENCE Need for lipid screening EGFR Routine 03/03/2024 6:45 AM CDT HEMOGLOBIN A1C Routine 02/27/2024 5:59 AM CDT HEPATITIS PANEL, ACUTE STAT 05/08/2022 3:59 PM MANAGER INTELLIGENCE from Last 3 Months or Most Recently Relevant to Health Maintenance Results * POCT lipid panel (07/01/2024 9:57 AM MANAGER INTELLIGENCE) Cholesterol, POC 138 mg/dL Comment:GLU = 176 HDL, POC 17 mg/dL Triglycerides, POC 168 mg/dL LDL Cholesterol POC 88 mg/dL Chol/HDL Ratio, POC 5.2 Non-HDL Cholesterol, POC 121 mg/dL Cholesterol Total, POC 138 mg/dL Capillary blood 07/01/2024 9 :57 AM MANAGER INTELLIGENCE us Uriel Gillette MD POINT OF CARE [...] MD LAB BLOOD ORDERABLES Final Resu lt [facility] [address] Department [place] [address] * (ABNORMAL) Hemoglobin A1c (02/27/2024 5:59 AM CDT) Hgb A1C 7.5(H) 4.0 - 5.6 % Estimated Average Glucose 169 mg/dL [facility] Comment: The ADA recommends reporting an estimated Average Glucose (eAG) with all Hemoglobin A1c results using the equation derived from a study of 507 normal and diabetic adults. Minority populations were underrepresented and children were not included. (Diabetes Care 31:8759-5661, 2008). The eAG is not equivalent to a fasting glucose. Blood 02/27/2024 5:59 AM CDT 02/27/2024 7:11 AM CDT us Asif Delgadillo MD LAB BLOOD ORDERABLES Final Re sult [facility] [address] Department [place] [address] * Hepatitis panel, acute (05/08/2022 3:59 PM MANAGER INTELLIGENCE) Hep A IgM Nonreactive Nonreactive [facility] Comment: Interpretive Data: If Hep A IgM Ab is reported as Equivocal, a new sample should be drawn in two weeks for testing. Current interpretive data was last revised on 19. Hep B core IgM Nonreactive Nonreactive [facility] Comment: Interpretive Data If HepB Core IgM Ab is reported as Equivocal, a new sample should be drawn in two weeks for testing. Current interpretive data was last revised on 19. Hep C Ab Nonreactive Nonreactive [facility] Comment: Interpretive Data Nonreactive: Antibodies to HCV [...] last revised on 2019. HepBsAg Nonreactive Nonreactive [facility] Blood 05/08/2022 3:59 PM MANAGER INTELLIGENCE 05/08/2022 3:59 PM MANAGER INTELLIGENCE Mellissa Garcia DO LAB MICROBIOLOGY - GENERAL ORD ERABLES Final Result [facility] [address] Department [place] [address] from Last 3 Months or Most Recently Relevant to Health Maintenance Insurance MEDICARE [facility] MEDICARE [employer] MEDICARE SUPPLEMENT Advance Directives For more information, please contact: [phone] Documents on File Type Date Recorded Patient Coining Press Operator Expl anation ADVANCE DIRECTIVE 03/04/2024 10:[address] - Phys Order for PT Preferences * Full Code (Latest Code Status on File) Date Activated Date Inactivated Comments 02/25/2024 5:55 PM 03/03/2024 4:42 PM * Full Code Date Activated Date Inactivated Comments 05/11/2021 3:52 AM 05/14/2021 8:52 PM Care Teams Fitness Supervisor Relationship Specialty Start Date End Date Rikki Amezquita MD [address] [facility] [address] [place] [id number] PCP - General Family Medicine 07/01/24 Mona Curire MD PhD Medical Oncologist/Cylinder Dyer Medical Oncology 01/07/21 Sammy Shepard MD Consulting Physician Nephrology 05/14/21
--- NOTE | 2025-03-07 20:31 | ECG_ITS ---
Test Date: 2025-03-07 21:21:46 Measurements Intervals [place] Rate: 59 P: 2 AL: 209 QRS: 14 QRSD: 108 T: 14 QT: 464 QTc: 461 Interpretive Statements SINUS BRADYCARDIA NONSPECIFIC T-WAVE ABNORMALITY Compared to ECG 02/09/2025 23:02:07 T-wave abnormality now present Sinus rhythm no longer present First degree AV block no longer present Electronically Signed On 03-08-2025 03:10:36 EMPLOYMENT COUNSELOR by Stevie Wood M.D.
--- NOTE | 2025-03-07 20:34 | ED.SKABFB ---
HPI - Skin/Abscess/Foreign Bdy General Chief complaint: Skin/Abscess/Foreign Body <Inessa Doshi APRN - Last Filed: 03/08/25 03:36> Stated complaint: CELLULITIS OF RIGHT LOWER LIMB <Inessa Doshi APRN - Last Filed: 03/08/25 03:36> Time Seen by Provider: 03/07/25 20:04 <Inessa Doshi APRN - Last Filed: 03/08/25 03:36> History of Present Illness HPI narrative: Patient is a 74-year-old female who presents to the ER with right lower extremity redness, swelling, and open wound. She is nonverbal so her is her emergency medical services coordinator. He reports she has had a small open wound to the back of her right lower extremity for a while but reports I did not realize how red it was until today. Patient's reports she has a history of a cholecystectomy, diabetes, and receives dialysis Sunday, Sunday, and Sunday. Her reports her blood sugars have been running between 200 and 240. Patient's reports she has also had diarrhea lately. According to her medical records patient has a history of a stroke in December of 2023, and she is on blood thinners for atrial fibrillation. <Inessa Doshi APRN - Last Filed: 03/08/25 03:36> Related Data Home medications: Home Medications ?Medication ?Instructions ?Recorded ?Confirmed ?Last Taken ?Type insulin aspart U-100 100 unit/mL See Rx Instructions .Route .COMPLEX 05/20/24 02/10/25 Unknown History (3 mL) subcutaneous pen (Novolog FlexPen U-100 Insulin aspart) amiodarone 200 mg tablet 200 mg PO QAM 09/02/24 02/10/25 Unknown History insulin glargine 100 unit/mL (3 18 unit subcut QPM 09/02/24 02/10/25 Unknown History mL) subcutaneous pen (Lantus Solostar U-100 Insulin) ropinirole 2 mg tablet 0.5 mg PO Q12H 09/02/24 02/10/25 Unknown History <Inessa Doshi APRN - Last Filed: 03/08/25 03:36> Allergies/Adverse reactions: Allergies Allergy/AdvReac Type Severity Reaction Status Date / Time nickel Allergy Intermediate hives and Verified 03/07/25 20:05 itchy rash Sulfa (Sulfonamide Allergy Intermediate Urticaria Verified 03/07/25 20:05 Antibiotics) and hives Calcium Channel Blocking AdvReac Intermediate STATES Verified 03/07/25 20:05 Agents-Dih CANNOT TAKE SINCE SHE HAS ASTHMA diphenhydramine AdvReac Intermediate restless Verified 03/07/25 20:05 legs nifedipine AdvReac Intermediate palpitation Verified 03/07/25 20:05 s Lsvzcml-CAK-CkC Reductase AdvReac Intermediate muscle Verified 03/07/25 20:05 Inhibitor (Shchbeo-Pvu-Bwa cramps Reductase Inhibitor) <Inessa Doshi APRN - Last Filed: 03/08/25 03:36> Review of Systems Review of Systems: All systems reviewed & are unremarkable except as noted in HPI and below <Inessa Doshi APRN - Last Filed: 03/08/25 03:36> [facility] Past Medical History Medical History: Medical History 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 Paroxysmal atrial fibrillation Bilateral primary osteoarthritis of knee Renal osteodystrophy DVT of lower extremity (deep venous thrombosis) Asthma-COPD overlap syndrome Left-sided cerebrovascular accident (CVA) (01/04/24) With residual left-sided visual neglect, profound expressive aphasia and right-sided hemiplegia ESRD on hemodialysis (02/17/22) Chronic anticoagulation Obstructive sleep apnea Hypothyroidism Insulin dependent type 2 diabetes mellitus Generalized anxiety disorder Chronic obstructive pulmonary disease Chronic diastolic (congestive) heart failure Coronary artery disease involving [place] heart without angina pectoris Depression GERD without esophagitis Peripheral polyneuropathy <Inessa Doshi APRN - Last Filed: 03/08/25 03:36> Surgical History Surgical History: Surgical History History of tracheostomy (04/24/22) With subsequent removal History of cataract extraction History of tonsillectomy History of cholecystectomy History of gastrostomy tube placement and removal <Inessa Doshi APRN - Last Filed: 03/08/25 03:36> Family History Family History: Family History Father Hypertension Family history of coronary artery disease Sibling Hypertension Family history of coronary artery disease Mother Cerebrovascular accident Other Asthma Depression Family history of Alzheimer's disease Family history of arthritis Family history of cardiovascular disease Family history of lymphoma Family history of obesity Family history of seizure disorder <Inessa Doshi APRN - Last Filed: 03/08/25 03:36> Social History Social History: Social History Social History: Surrogate medical decision maker: Anjum (spouse) or Gwen (daughter) Kyra. Code status: Full code. Smoking packs per day: 1 Smoking cigarettes per day: 20.0 Years smoked: 17 Smoking pack-years: 17.00 Smoking status: Former smoker Tobacco type: cigarettes Second hand tobacco smoke exposure: No Smoking end date: 05/07/84 Alcohol intake: never Alcohol use details: special occasions Substance use: never Substance use type: does not use Last use: 01/05/23 Do You Feel Safe in your Home?: Yes Lack of Transportation: No Lack of Food: Never True Current Housing: I Have Housing Concerned About Future Housing: No Difficulty Paying Gas/Electric Bills: No Difficulty Paying for Meds: No Currently Unemployed: No Education: High School Diploma/GED Difficulty w/ Childcare or Family Care: No Living arrangements: with family Occupation/Education: retired Spiritual care concerns: No <Inessa Doshi APRN - Last Filed: 03/08/25 03:36> Exam Narrative: GENERAL: Ill appearing, well-nourished, non-toxic, in no acute distress. HEAD: Normocephalic, atraumatic. NECK: Supple. No adenopathy, no masses. RESPIRATORY: Airway patent, respirations nonlabored. Clear to auscultation bilaterally, no rales, rhonchi, wheezing. CARDIOVASCULAR: Regular rate and rhythm without murmurs, rubs, or gallops. Peripheral pulses 2+ and equal bilaterally. ABDOMINAL: Soft, nontender, nondistended, no hepatosplenomegaly. Normoactive BS. MUSCULOSKELETAL: Moves all extremities. Strength/ROM intact without gross deformities. SKIN: Warm, dry, normal color. No rashes. RLE redness, swelling from mid-calf down, R posterior dark red scab, no visible drainage NEURO: Pt intermittently answers yes/no questions, but otherwise is speaking nonsensical. She is able to move all extremities and whimpers when area of concern is palpated. + aphasia (baseline) <Inessa Doshi APRN - Last Filed: 03/08/25 03:36> Course Course Emergency Course: Patient care signed over by previous provider pending CT scan and read discussion with hospitalist. CT scan independently reviewed showing soft tissue edema. Confirmed by radiology as diffuse soft tissue edema consistent with cellulitis based on clinical exam. No fluid collections or abscess formation. 50% to 75% stenosis of her arteries as well as a high-grade stenosis in the distal popliteal tibial artery. Patient evaluated bedside and has warm well-perfused extremity and good motion without any restricted flexion or extension. Sensation intact. Rash appears to be in a distribution of the anterior [place] and partially circumferential consistent with cellulitis rather than a vascular territory. No purulent drainage or weeping. Palpable dorsalis pedis pulse. Dopplerable pulses in the posterior tibial artery so no total occlusion and lots of collateralization as the extremities warm without any vascular or neurological deficits at this time. Connected to the hospitalist once again who accepted the patient to the hospital for IV antibiotics and treatment of cellulitis at this time. Patient is already on anticoagulation with apixaban and on a statin. <Derick Davis MD - Last Filed: 03/08/25 05:03> Vital Signs Vital signs: Vital Signs Temperature 36.5 C 03/07/25 19:27 Pulse Rate 57 L 03/07/25 19:27 Respiratory Rate 16 03/07/25 19:27 Blood Pressure 153/55 H 03/07/25 19:27 Pulse Oximetry 99 03/07/25 19:27 Oxygen Delivery Room Air 03/07/25 19:27 Temperature 36.5 C 03/07/25 19:27 Pulse Rate 64 03/08/25 04:45 Respiratory Rate 16 03/08/25 04:45 Blood Pressure 150/55 H 03/08/25 04:07 Pulse Oximetry 95 03/08/25 04:15 Oxygen Delivery Room Air 03/07/25 19:27 <Inessa Doshi APRN - Last Filed: 03/08/25 03:36> Vital Signs Temperature 36.5 C 03/07/25 19:27 Pulse Rate 57 L 03/07/25 19:27 Respiratory Rate 16 03/07/25 19:27 Blood Pressure 153/55 H 03/07/25 19:27 Pulse Oximetry 99 03/07/25 19:27 Oxygen Delivery Room Air 03/07/25 19:27 Temperature 36.5 C 03/07/25 19:27 Pulse Rate 64 03/08/25 04:45 Respiratory Rate 16 03/08/25 04:45 Blood Pressure 150/55 H 03/08/25 04:07 Pulse Oximetry 95 03/08/25 04:15 Oxygen Delivery Room Air 03/07/25 19:27 <Derick Davis MD - Last Filed: 03/08/25 05:03> MDM - Skin/Abscess/Foreign Bdy MDM Narrative Medical decision making narrative: Patient is a 74-year-old female who presents to the ER with right lower extremity redness, swelling, and open wound. She is nonverbal so her is her emergency medical services coordinator. He reports she has had a small open wound to the back of her right lower extremity for a while but reports I did not realize how red it was until today. Patient's reports she has a history of a cholecystectomy, diabetes, and receives dialysis Sunday, Sunday, and Sunday. Her reports her blood sugars have been running between 200 and 240. Patient's reports she has also had diarrhea lately. According to her medical records patient has a history of a stroke in December of 2023, and she is on blood thinners for atrial fibrillation. Labs Ordered: CBC, CMP, PTT, INR, lactic acid, UA, blood cultures, hemoglobin A1c, CRP Imaging Ordered: Right tibia/fibula x-ray, right foot x-ray, right ankle x-ray Medications Ordered: Vancomycin 2 g IV, Flagyl 500 mg IV, 1 L normal saline IV bolus, cefepime 2 g IV Results: Patient's x-rays indicate no fracture of the tibia or fibula. Joint space narrowing of the medial lateral compartments. No ankle fracture. The ankle mortise is symmetric. Intact medial and lateral malleoli. Heel spur. No acute fracture or dislocation of the right foot. Chronic appearing fracture of the 4th toe proximal phalanx at the distal metaphysis. Osteotomy of the 5th metatarsal neck. Arthritic changes of the 3rd toe PIP. Diagnosis: R diabetic lower extremity ulcer, RLE cellulitis CRITICAL CARE ADDENDUM: Indication: Rule out sepsis Time type: intermittent I provided a total of 35 minutes of critical care excluding separately billable procedures. This includes time w/ EMS, initial bedside evaluation, reviewing old records, review of testing done while under my care, discussion w/ the family, nurses, [employer] consultant and guiding the patient?s care while in the emergency department. Please see main chart for details. Excludes separately billable procedures. MDM: Results of imaging and lab work shared with patient and her family. It was advised patient be admitted to the hospital for further evaluation and treatment. Patient and her family verbalized understanding and are in agreement with plan. 0145- Spoke with Dr. Burch, who requests pt receive a CT scan of her R lower extremity before admission. 0315- Care signed out to Dr. Davis pending CT scan results. <Inessa Doshi, EPIFANIO - Last Filed: 03/08/25 03:36> Differential Diagnosis Differential diagnosis: Likely abscess of skin or subcutaneous tissue, urticaria, cellulitis and contact dermatitis <Inessa Doshi APRN - Last Filed: 03/08/25 03:36> Lab Data Attestation: I reviewed the patient's lab results. <Inessa Doshi APRN - Last Filed: 03/08/25 03:36> Result diagrams: 03/07/25 21:27 03/07/25 21:27 <Inessa Doshi APRN - Last Filed: 03/08/25 03:36> Labs: Lab Results 03/07/25 03/07/25 Range/Units 21:27 21:38 WBC 8.0 (4.5-10.0) K/mm3 RBC 3.60 L (4.2-5.4) M/mm3 Hgb 9.6 L (12.0-15.0) g/dL Hct 32.3 L (37.0-47.0) % MCV 89.7 (80-100) fl MCH 26.7 (26-34) pg MCHC 29.7 L (32-36) g/dl RDW 18.1 H (11.5-14.5) % Plt Count 225 (150-375) k/mm3 MPV 10.0 (7.4-10.4) fl Immature Gran % (Auto) 0.4 (0-0.5) % Neut % (Auto) 67.0 (45.5-73.1) % Lymph % (Auto) 16.3 L (18.3-44.2) % Daniels % (Auto) 11.6 H (2.6-8.5) % Eos % (Auto) 4.1 (0-4.4) % Baso % (Auto) 0.6 (0.2-1.2) % Lymph # (Auto) 1.31 (0.9-3.2) K/mm3 Daniels # (Auto) 0.9 H (0.1-0.6) K/mm3 Eos # (Auto) 0.3 (0-0.3) K/mm3 Baso # (Auto) 0.1 (0.0-0.1) K/mm3 Abs Immat Gran (auto) 0.03 (0.00-0.031) K/mm3 Absolute Neuts (auto) 5.4 (1.3-6.7) K/mm3 Absolute Nucleated RBC 0.000 (0.0-0.012) K/mm3 Band Neutrophils % Not Reportable Nucleated RBC % 0.0 (0.0-0.2) % Platelet Estimate Adequate (Adequate) Hypochromasia 1+ Ovalocytes Occasional Schistocytes None seen PT 17.5 H (11.1-14.7) Seconds INR 1.5 APTT 35.8 (22.3-36.8) Seconds Sodium 137 (137-145) mmol/L Potassium 4.2 (3.4-5.0) mmol/L Chloride 92 L (98-107) mmol/L Carbon Dioxide 35 H (22-30) mmol/L Anion Gap 10 (4-12) mmol/L BUN 40 H (7-17) mg/dL Creatinine 4.73 H (0.7-1.0) mg/dL Estim Creat Clear Calc Not Reportable Estimated GFR 9 L (59 - ) Glucose 131 H (65-110) mg/dL Hemoglobin A1c 6.5 H (<5.7) % Lactic Acid 0.9 (0.7-2.0) mmol/L Calcium 8.7 (8.4-10.2) mg/dL Total Bilirubin 0.8 (0.2-1.3) mg/dL AST 27 (14-36) U/L ALT 18 (6-35) U/L Alkaline Phosphatase 112 (38-126) U/L C-Reactive Protein 1.4 H (<1.0) mg/dL Total Protein 7.7 (6.3-8.2) g/dL Albumin 3.9 (3.5-5.1) g/dL Urine Color Dark yellow (Yellow) Urine Appearance Turbid H (Clear) Urine pH 7.0 (5.0-9.0) Ur Specific [place] 1.017 (1.001-1.035) Urine Protein 3+ H (Negative) mg/dL Urine Glucose (UA) Negative (Negative) mg/dL Urine Ketones Negative (Negative) mg/dL Ur Blood (Man) 3+ H (Negative) Urine Nitrate Negative (Negative) Urine Bilirubin Negative (Negative) Urine Urobilinogen 1.0 (<2.0) mg/dL Add Ur Microanalysis Reviewed Leukocyte Esterase Rfl 3+ H (Negative) ERICK/UL Urine RBC >100 H (0-2) /hpf Urine WBC >100 H (0-3) /hpf Ur Squamous Epith Cells Few (Few) /hpf Urine Bacteria 4+ H /hpf Urine Casts 3-5 <Inessa Doshi, POISON INFORMATION SPECIALIST - Last Filed: 03/08/25 03:36> Lab Results 03/07/25 03/07/25 Range/Units 21:27 21:38 WBC 8.0 (4.5-10.0) K/mm3 RBC 3.60 L (4.2-5.4) M/mm3 Hgb 9.6 L (12.0-15.0) g/dL Hct 32.3 L (37.0-47.0) % MCV 89.7 (80-100) fl MCH 26.7 (26-34) pg MCHC 29.7 L (32-36) g/dl RDW 18.1 H (11.5-14.5) % Plt Count 225 (150-375) k/mm3 MPV 10.0 (7.4-10.4) fl Immature Gran % (Auto) 0.4 (0-0.5) % Neut % (Auto) 67.0 (45.5-73.1) % Lymph % (Auto) 16.3 L (18.3-44.2) % Daniels % (Auto) 11.6 H (2.6-8.5) % Eos % (Auto) 4.1 (0-4.4) % Baso % (Auto) 0.6 (0.2-1.2) % Lymph # (Auto) 1.31 (0.9-3.2) K/mm3 Daniels # (Auto) 0.9 H (0.1-0.6) K/mm3 Eos # (Auto) 0.3 (0-0.3) K/mm3 Baso # (Auto) 0.1 (0.0-0.1) K/mm3 Abs Immat Gran (auto) 0.03 (0.00-0.031) K/mm3 Absolute Neuts (auto) 5.4 (1.3-6.7) K/mm3 Absolute Nucleated RBC 0.000 (0.0-0.012) K/mm3 Band Neutrophils % Not Reportable Nucleated RBC % 0.0 (0.0-0.2) % Platelet Estimate Adequate (Adequate) Hypochromasia 1+ Ovalocytes Occasional Schistocytes None seen PT 17.5 H (11.1-14.7) Seconds INR 1.5 APTT 35.8 (22.3-36.8) Seconds Sodium 137 (137-145) mmol/L Potassium 4.2 (3.4-5.0) mmol/L Chloride 92 L (98-107) mmol/L Carbon Dioxide 35 H (22-30) mmol/L Anion Gap 10 (4-12) mmol/L BUN 40 H (7-17) mg/dL Creatinine 4.73 H (0.7-1.0) mg/dL Estim Creat Clear Calc Not Reportable Estimated GFR 9 L (59 - ) Glucose 131 H (65-110) mg/dL Hemoglobin A1c 6.5 H (<5.7) % Lactic Acid 0.9 (0.7-2.0) mmol/L Calcium 8.7 (8.4-10.2) mg/dL Total Bilirubin 0.8 (0.2-1.3) mg/dL AST 27 (14-36) U/L ALT 18 (6-35) U/L Alkaline Phosphatase 112 (38-126) U/L C-Reactive Protein 1.4 H (<1.0) mg/dL Total Protein 7.7 (6.3-8.2) g/dL Albumin 3.9 (3.5-5.1) g/dL Urine Color Dark yellow (Yellow) Urine Appearance Turbid H (Clear) Urine pH 7.0 (5.0-9.0) Ur Specific [place] 1.017 (1.001-1.035) Urine Protein 3+ H (Negative) mg/dL Urine Glucose (UA) Negative (Negative) mg/dL Urine Ketones Negative (Negative) mg/dL Ur Blood (Man) 3+ H (Negative) Urine Nitrate Negative (Negative) Urine Bilirubin Negative (Negative) Urine Urobilinogen 1.0 (<2.0) mg/dL Add Ur Microanalysis Reviewed Leukocyte Esterase Rfl 3+ H (Negative) ERICK/UL Urine RBC >100 H (0-2) /hpf Urine WBC >100 H (0-3) /hpf Ur Squamous Epith Cells Few (Few) /hpf Urine Bacteria 4+ H /hpf Urine Casts 3-5 <Derick Davis MD - Last Filed: 03/08/25 05:03> Imaging Data Attestation: I personally reviewed and interpreted this imaging study as follows: <Inessa Doshi APRN - Last Filed: 03/08/25 03:36> Radiologist's impression: Patient's x-rays indicate no fracture of the tibia or fibula. Joint space narrowing of the medial lateral compartments. No ankle fracture. The ankle mortise is symmetric. Intact medial and lateral malleoli. Heel spur. No acute fracture or dislocation of the right foot. Chronic appearing fracture of the 4th toe proximal phalanx at the distal metaphysis. Osteotomy of the 5th metatarsal neck. Arthritic changes of the 3rd toe PIP. <Inessa Doshi APRN - Last Filed: 03/08/25 03:36> Critical Care Time Critical Care Time Critical Care Time: Yes <Inessa Doshi APRN - Last Filed: 03/08/25 03:36> Total Critical Care Time: 35 <Inessa Doshi APRN - Last Filed: 03/08/25 03:36> Discharge Plan Discharge Clinical Impression: Cellulitis of right leg, Vaginal yeast infection, Chronic kidney disease UTI (urinary tract infection) Qualifiers: Urinary tract infection type: acute cystitis Hematuria presence: with hematuria Qualified Code(s): N30.01 - Acute cystitis with hematuria <Inessa Doshi APRN - Last Filed: 03/08/25 03:36> Patient Disposition: Still a Patient <Inessa Doshi APRN - Last Filed: 03/08/25 03:36> Condition: Stable <Inessa Doshi APRN - Last Filed: 03/08/25 03:36> Patient Language: Other <Inessa Doshi APRN - Last Filed: 03/08/25 03:36> Prescriptions: No Action insulin aspart U-100 [Novolog FlexPen U-100 Insulin] 100 unit/mL (3 mL) insulin pen See Rx Instructions .ROUTE .COMPLEX MDD 60 Rx Instructions: sliding scale albuterol sulfate [Ventolin HFA] 90 mcg/actuation HFA aerosol inhaler See Rx Instructions .ROUTE .COMPLEX Qty: 18 6RF Dose Instruction: INHALE 2 PUFFS BY MOUTH 4 TIMES DAILY NEEDED FOR SHORTNESS OF BREATH OR WHEEZING. Rx Instructions: INHALE 2 PUFFS BY MOUTH 4 TIMES DAILY NEEDED FOR SHORTNESS OF BREATH OR WHEEZING. metoprolol succinate 50 mg tablet extended release 24 hr 50 mg PO QAM Qty: 90 0RF montelukast 10 mg tablet 10 mg PO DAILY Qty: 90 3RF escitalopram oxalate [Lexapro] 5 mg tablet 5 mg PO DAILY Qty: 90 4RF amiodarone 200 mg tablet 200 mg PO QAM ropinirole 2 mg tablet 0.5 mg PO Q12H insulin glargine [Lantus Solostar U-100 Insulin] 100 unit/mL (3 mL) insulin pen 18 unit subcut QPM Rx Instructions: INJECT 18 UNITS UNDER THE SKIN AT BEDTIME amoxicillin-pot clavulanate [Augmentin] 500-125 mg Tablet 1 tablet PO QHS Qty: 2 0RF albuterol sulfate 2.5 mg /3 mL (0.083 %) solution for nebulization 2.5 mg inhalation Q4-6H PRN (Reason: shortness of breath or wheezing) Qty: 90 6RF budesonide-formoterol 160-4.5 mcg/actuation HFA aerosol inhaler 2 puff inhalation Q12H Qty: 10.2 6RF Eliquis 2.5 mg tablet See Rx Instructions PO .COMPLEX Qty: 180 2RF Dose Instruction: TAKE 1 TABLET TWICE DAILY Rx Instructions: TAKE 1 TABLET TWICE DAILY orally ; fluticasone propionate 50 mcg/actuation spray,suspension 2 spray intranasal DAILY PRN (Reason: nasal congestion) Qty: 16 2RF trazodone 50 mg tablet 50 mg PO QHS Qty: 30 5RF atorvastatin [Lipitor] 20 mg tablet 20 mg PO HS Qty: 90 1RF hydralazine 25 mg tablet 25 mg PO TID Qty: 270 0RF levothyroxine 175 mcg tablet See Rx Instructions .ROUTE .COMPLEX Qty: 90 1RF Dose Instruction: Take 1 tablet by mouth once daily Rx Instructions: Take 1 tablet by mouth once daily Cholestyramine Light 4 gram powder in packet 4 g PO BID Qty: 60 3RF Rx Instructions: administer w/meal; avoid other meds within 1hr before or 4-6hr after dose lorazepam [Ativan] 0.5 mg tablet 0.5 mg PO BID PRN (Reason: anxiety) Qty: 60 0RF isosorbide mononitrate 30 mg tablet extended release 24 hr 30 mg PO DAILY Qty: 90 0RF <Inessa Doshi APRN - Last Filed: 03/08/25 03:36> Follow-up/Referrals: Rikki Amezquita MD [Primary Care Provider, Family Practice] <Inessa Doshi APRN - Last Filed: 03/08/25 03:36>
[2025-03-07 21:35] LABS: Hematocrit 32.3 % (37.0-47.0); Hemoglobin 9.6 g/dL (12.0-15.0); Immature Granulocyte Percent A 0.4 % (0-0.5); Lymphocytes Absolute Auto 1.31 K/mm3 (0.9-3.2); Mean Corpuscular HGB Conc 29.7 g/dl (32-36); Mean Corpuscular Hemoglobin 26.7 pg (26-34); Mean Corpuscular Volume 89.7 fl (80-100); Nucleated Red Blood Cells Absolute Auto 0.000 K/mm3 (0.0-0.012); Nucleated Red Blood Cells Perc 0.0 % (0.0-0.2); Platelet Count Result 225 k/mm3 (150-375); Red Blood Count 3.60 M/mm3 (4.2-5.4); White Blood Count 8.0 K/mm3 (4.5-10.0)
[2025-03-07] MEDS: SODIUM CHLORIDE 0.9% IV 1,000 ML 999 ML IV CONT (21:37)
[2025-03-07 21:45] LABS: Hypochromasia 1+; Ovalocytes Occasional; Schistocytes None Seen
[2025-03-07 21:49] LABS: Hemoglobin A1C 6.5 % (<5.7)
[2025-03-07 21:50] LABS: Alanine Aminotransferase 18 U/L (6-35); Albumin Level 3.9 g/dL (3.5-5.1); Alkaline Phosphatase 112 U/L (38-126); Anion Gap 10 mmol/L (4-12); Aspartate Amino Transferase 27 U/L (14-36); Bilirubin,Total 0.8 mg/dL (0.2-1.3); Blood Urea Nitrogen 40 mg/dL (7-17); CRP 1.4 mg/dL (<1.0); Calcium 8.7 mg/dL (8.4-10.2); Carbon Dioxide 35 mmol/L (22-30); Chloride 92 mmol/L (98-107); Estimated Glomerular Filt Rate 9; Glucose 131 mg/dL (65-110); INR 1.5; Potassium 4.2 mmol/L (3.4-5.0); Prothrombin Time 17.5 Seconds (11.1-14.7); Sodium 137 mmol/L (137-145); Total Protein 7.7 g/dL (6.3-8.2)
[2025-03-07 21:51] LABS: Partial Thromboplastin Time 35.8 Seconds (22.3-36.8)
[2025-03-07 22:02] LABS: Add Urine Microscopic? YES; Appearance Urine Turbid (Clear); Glucose Urine UA Negative (Negative); Leukocyte Esterase Ur 3+ LEU/UL (Negative); Need Manual Microscopic Reviewed; Nitrate Urine Negative (Negative); Specific Grav Ur 1.017 (1.001-1.035)
[2025-03-07] MEDS: CEFEPIME 2 GM in SODIUM CHLORIDE 0.9% IV 50 ML 100 ML IVPB (22:12)
[2025-03-07] MEDS: metroNIDAZOLE 500 MG/ISO 100ML 500 MG/100 ML BAG 100 MG IVPB (22:40)
[2025-03-07] MEDS: VANCOMYCIN 2,000 MG/NS 500 ML 2,000 MG/500 ML BAG 250 MG IVPB (23:36)
[2025-03-08] VITALS (42 sets, daily range): BP systolic 130–166; BP diastolic 52–79; PULSE 54–67; RESP 10–21; TEMP 36.5–37; O2SAT 92–98; BMI 35.6
[2025-03-08] MEDS: FLUCONAZOLE 200 MG/NACL 100 ML 200 MG/100 ML BAG 100 MG IVPB (04:03)
--- NOTE | 2025-03-08 04:56 | PC.NURSE ---
Patients pedal pulses in R foot found with doppler by ERP.
--- NOTE | 2025-03-08 05:58 | P.HP_ITS ---
H&P: HPI History of Present Illness Date/Time: 03/08/25 05:58 Chief Complaint: Right leg redness Narrative: 74-year-old female to urgent care by her for right leg redness, urgent care referred patient to [facility] on 03/07/2025. She has a PMH of diabetes mellitus, neuropathy, ESRD on dialysis MWF followed by Dr. 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 noticed open wound on the back of her ankle and redness which has become progressively worse with some swelling. ER evaluation demonstrates erythema, mild edema surrounding the ulcer above her calcaneus on the right foot in a circumferential fashion. No active purulence. Urinalysis with 4+ bacteria, wbc's, few squamous cells, leukocyte esterase positive, nitrite negative. CT right lower extremity with contrast demonstra ting diffuse soft tissue edema, no fluid collection, multi vessel stenosis. Right lower extremity warmth to touch, pedal pulses faint and otherwise dopplerable. Good sensation, week due to prior CVA. Good capillary refill. Administer vancomycin, cefepime, metronidazole, Diflucan. Blood culture and urine cultures obtained. 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 Paroxysmal atrial fibrillation Bilateral primary osteoarthritis of knee Renal osteodystrophy DVT of lower extremity (deep venous thrombosis) Asthma-COPD overlap syndrome Left-sided cerebrovascular accident (CVA) (01/04/24) With residual left-sided visual neglect, profound expressive aphasia and right-sided hemiplegia ESRD on hemodialysis (02/17/22) Chronic anticoagulation Obstructive sleep apnea Hypothyroidism Insulin dependent type 2 diabetes mellitus Generalized anxiety disorder Chronic obstructive pulmonary disease Chronic diastolic (congestive) heart failure Coronary artery disease involving [place] heart without angina pectoris Depression GERD without esophagitis Peripheral polyneuropathy Surgical History Surgical History History of tracheostomy (04/24/22) With subsequent removal History of cataract extraction History of tonsillectomy History of cholecystectomy History of gastrostomy tube placement and removal Family History Family History Father Hypertension Family history of coronary artery disease Sibling Hypertension Family history of coronary artery disease Mother Cerebrovascular accident Other Asthma Depression Family history of Alzheimer's disease Family history of arthritis Family history of cardiovascular disease Family history of lymphoma Family history of obesity Family history of seizure disorder Social History Social History Social History: Surrogate medical decision maker: Anjum (spouse) or Gwen (daughter) Kyra. Code status: Full code. Smoking packs per day: 1 Smoking cigarettes per day: 20.0 Years smoked: 17 Smoking pack-years: 17.00 Smoking status: Former smoker Tobacco type: cigarettes Second hand tobacco smoke exposure: No Smoking end date: 05/07/84 Alcohol intake: never Alcohol use details: special occasions Substance use: never Substance use type: does not use Last use: 01/05/23 Do You Feel Safe in your Home?: Yes Lack of Transportation: No Lack of Food: Never True Current Housing: I Have Housing Concerned About Future Housing: No Difficulty Paying Gas/Electric Bills: No Difficulty Paying for Meds: No Currently Unemployed: No Education: High School Diploma/GED Difficulty w/ Childcare or Family Care: No Living arrangements: with family Occupation/Education: retired Spiritual care concerns: No Meds Home Medications and Allergies Home Medications ?Medication ?Instructions ?Recorded ?Confirmed ?Type albuterol sulfate 2.5 mg/3 mL 2.5 mg (3 mL) inhalation Q4-6H PRN 07/10/23 02/10/25 Rx (0.083 %) solution for nebulization shortness of breat h or wheezing #90 mL Ventolin HFA 90 mcg/actuation See Rx Instructions .Rou te 05/20/24 02/10/25 Rx aerosol inhaler (albuterol sulfate) .COMPLEX #18 grams insulin aspart U-100 100 unit/mL See Rx Instructions . Route .COMPLEX 05/20/24 02/10/25 History (3 mL) subcutaneous pen (Novolog FlexPen U-100 Insulin aspart) metoprolol succinate 50 mg 50 mg PO QAM #90 tabs 05/2002/10/25 Rx tablet,extended release 24 hr montelukast 10 mg tablet 10 mg PO DAILY #90 tabs 06/0802/10/25 Rx budesonide-formoterol HFA 160 2 puff inhalation Q12H # 10.2 grams 07/17/24 02/10/25 Rx mcg-4.5 mcg/actuation aerosol inhaler apixaban 2.5 mg tablet (Eliquis) See Rx Instructions P O .COMPLEX 07/29/24 02/10/25 Rx #180 tabs amiodarone 200 mg tablet 200 mg PO QAM 09/02/2402/10 History insulin glargine 100 unit/mL (3 18 unit subcut QPM 02/10/25 History mL) subcutaneous pen (Lantus Solostar U-100 Insulin) ropinirole 2 mg tablet 0.5 mg PO Q12H 09/02/2411/28 History fluticasone propionate 50 2 spray intranasal DAILY PRN nasal 10/20/24 02/10/25 Rx mcg/actuation nasal congestion #16 grams spray,suspension atorvastatin 20 mg tablet (Lipitor) 20 mg PO HS #90 ta bs 11/03/24 02/10/25 Rx trazodone 50 mg tablet 50 mg PO QHS #30 tabs 02/10/25 Rx escitalopram oxalate 5 mg tablet 5 mg PO DAILY #90 tab s 11/04/24 02/10/25 Rx (Lexapro) hydralazine 25 mg tablet 25 mg PO TID #270 tabs 12/0402/10/25 Rx levothyroxine 175 mcg tablet See Rx Instructions .Rout e 01/27/25 02/10/25 Rx .COMPLEX #90 tabs cholestyramine 4 gram oral powder 4 g PO BID #60 ea 02/10/25 Rx for suspension in a packet (Cholestyramine Light) lorazepam 0.5 mg tablet (Ativan) 0.5 mg PO BID PRN anx iety #60 tabs 02/02/25 02/10/25 Rx amoxicillin 500 mg-potassium 1 tablet PO QHS #2 tabs 1 Rx clavulanate 125 mg tablet (Augmentin) isosorbide mononitrate 30 mg 30 mg PO DAILY #90 tabs 1 Rx tablet,extended release 24 hr Allergies Allergy/AdvReac Type Severity Reaction Status Date / Time nickel Allergy Intermediate hives and Verified 03/07/25 20:05 itchy rash Sulfa (Sulfonamide Allergy Intermediate Urticaria Verified 03/07/25 20:05 Antibiotics) and hives Calcium Channel Blocking AdvReac Intermediate STATES Verified 03/07/25 20:05 Agents-Dih CANNOT TAKE SINCE SHE HAS ASTHMA diphenhydramine AdvReac Intermediate restless Verified 03/07/25 20:05 legs nifedipine AdvReac Intermediate palpitation Verified 03/07/25 20:05 s Vtqksre-HVH-LhB Reductase AdvReac Intermediate muscle Verified 03/07/25 20:05 Inhibitor (Mhyzihx-Wkw-Sit cramps Reductase Inhibitor) Vital Signs Vital Signs - 24 hr 03/07/25 19:27 03/07/25 19:38 03/07/25 19:39 Temperature 97.7 F Pulse Rate 57 L 58 L 58 L Respiratory Rate 16 9 L 10 L Blood Pressure 153/55 H 164/62 H Pulse Oximetry 99 98 97 Oxygen Delivery Room Air 03/07/25 19:45 03/07/25 19:46 03/07/25 19:53 Temperature Pulse Rate 56 L 57 L 56 L Respiratory Rate 10 L 10 L 8 L Blood Pressure 160/61 H 160/61 H Pulse Oximetry 98 99 98 Oxygen Delivery 03/07/25 20:00 03/07/25 20:08 03/07/25 20:15 Temperature Pulse Rate 56 L 68 56 L Respiratory Rate 10 L 16 16 Blood Pressure 161/68 H Pulse Oximetry 97 Oxygen Delivery 03/07/25 20:30 03/07/25 20:56 03/07/25 21:00 Temperature Pulse Rate 56 L 58 L 58 L Respiratory Rate 15 13 Blood Pressure Pulse Oximetry 98 97 Oxygen Delivery 03/07/25 21:15 03/07/25 21:30 03/07/25 21:44 Temperature Pulse Rate 59 L 62 59 L Respiratory Rate 16 18 16 Blood Pressure 151/72 H Pulse Oximetry Oxygen Delivery 03/07/25 21:45 03/07/25 22:00 03/07/25 22:01 Temperature Pulse Rate 58 L 59 L 59 L Respiratory Rate 15 19 17 Blood Pressure 166/69 H Pulse Oximetry Oxygen Delivery 03/07/25 22:15 03/07/25 22:30 03/07/25 22:31 Temperature Pulse Rate 58 L 59 L 59 L Respiratory Rate 15 14 12 Blood Pressure 152/54 H Pulse Oximetry Oxygen Delivery 03/07/25 22:45 03/07/25 23:00 03/07/25 23:01 Temperature Pulse Rate 57 L 56 L 56 L Respiratory Rate 11 L 14 13 Blood Pressure 156/51 H Pulse Oximetry Oxygen Delivery 03/07/25 23:02 03/07/25 23:15 03/07/25 23:30 Temperature Pulse Rate 56 L 55 L 57 L Respiratory Rate 14 14 12 Blood Pressure Pulse Oximetry Oxygen Delivery 03/07/25 23:45 03/08/25 00:00 03/08/25 00:01 Temperature Pulse Rate 57 L 56 L 58 L Respiratory Rate 12 13 15 Blood Pressure 163/59 H Pulse Oximetry Oxygen Delivery 03/08/25 00:15 03/08/25 00:30 03/08/25 00:36 Temperature Pulse Rate 61 57 L 56 L Respiratory Rate 21 H 14 14 Blood Pressure 166/59 H Pulse Oximetry Oxygen Delivery 03/08/25 00:45 03/08/25 01:00 [employer]CRAFT STEEL FAB[employer]ICATOR 03/08/25 01:01 [employer]CRAFT STEEL FABRICATOR Temperature Pulse Rate 56 L 55 L 55 L Respiratory Rate 14 14 17 Blood Pressure 157/62 H 164/66 H Pulse Oximetry Oxygen Delivery 03/08/25 01:15 [employer]CRAFT STEEL FAB[employer]ICATOR 03/08/25 01:30 AIRCRAFT STEEL FABRICATOR 03/08/25 01:31 [employer]CRAFT STEEL FABRICATOR Temperature Pulse Rate 54 L 57 L Respiratory Rate 16 14 Blood Pressure 156/58 H 151/53 H Pulse Oximetry Oxygen Delivery 03/08/25 01:45 AIRCRAFT STEEL FABRICATOR 03/08/25 02:00 03/08/25 02:15 Temperature Pulse Rate 59 L 61 59 L Respiratory Rate 13 14 10 L Blood Pressure Pulse Oximetry Oxygen Delivery 03/08/25 02:30 03/08/25 02:36 03/08/25 02:45 Temperature Pulse Rate 59 L 60 58 L Respiratory Rate 14 16 19 Blood Pressure 151/72 H Pulse Oximetry Oxygen Delivery 03/08/25 03:00 03/08/25 03:02 03/08/25 03:03 Temperature Pulse Rate 57 L 61 58 L Respiratory Rate 17 14 14 Blood Pressure 147/60 H Pulse Oximetry Oxygen Delivery 03/08/25 03:15 03/08/25 03:30 03/08/25 03:31 Temperature Pulse Rate 57 L 61 61 Respiratory Rate 16 17 13 Blood Pressure 157/57 H Pulse Oximetry 94 97 Oxygen Delivery 03/08/25 03:45 03/08/25 04:00 03/08/25 04:07 Temperature Pulse Rate 59 L 61 62 Respiratory Rate 13 14 16 Blood Pressure 150/55 H Pulse Oximetry 96 92 Oxygen Delivery 03/08/25 04:15 03/08/25 04:30 03/08/25 04:45 Temperature Pulse Rate 61 63 64 Respiratory Rate 12 19 16 Blood Pressure Pulse Oximetry 95 Oxygen Delivery 03/08/25 05:00 03/08/25 05:15 03/08/25 05:30 Temperature Pulse Rate 67 61 62 Respiratory Rate 16 14 12 Blood Pressure Pulse Oximetry Oxygen Delivery 03/08/25 05:40 Temperature Pulse Rate 63 Respiratory Rate 17 Blood Pressure Pulse Oximetry 97 Oxygen Delivery Exam Const: General: comfortable and no acute distress Other: Alert, expressive aphasia Eyes: Pupils: Equal, round and reactive pupils present Neck: Neck: supple Resp: Effort & Inspection: normal respiratory effort Auscultation: clear to auscultation bilaterally Cardio: Rate: regular rate Rhythm: regular rhythm Heart sounds: no murmurs GI: Inspection: non-distended GI Palp: Yes Soft to palpation Extrem: General: edema Other: Erythema, H&P: Results Labs Labs: Short CBC 03/07/25 Range/Units 21:27 WBC 8.0 (4.5-10.0) K/mm3 Hgb 9.6 L (12.0-15.0) g/dL Hct 32.3 L (37.0-47.0) % Plt Count 225 (150-375) k/mm3 [facility] 03/07/25 21:27 Sodium 137 Potassium 4.2 Chloride 92 L Carbon Dioxide 35 H BUN 40 H Creatinine 4.73 H Glucose 131 H Calcium 8.7 Liver Function 03/07/25 Range/Units 21:27 Total Bilirubin 0.8 (0.2-1.3) mg/dL AST 27 (14-36) U/L ALT 18 (6-35) U/L Alkaline Phosphatase 112 (38-126) U/L Albumin 3.9 (3.5-5.1) g/dL Urine 11/01/25 Range/Units 21:38 Urine Color Dark yellow (Yellow) Urine Appearance Turbid H (Clear) Urine pH 7.0 (5.0-9.0) Ur Specific [place] 1.017 (1.001-1.035) Urine Protein 3+ H (Negative) mg/dL Urine Glucose (UA) Negative (Negative) mg/dL Assessment and Plan Assessment and plan (1) Acute UTI: Code(s): N39.0 - Urinary tract infection, site not specified Status: Acute (2) Cellulitis of right leg: Code(s): L03.115 - Cellulitis of right lower limb Status: Acute Plan 74-year-old female to urgent care by her for right leg redness, urgent care referred patient to [facility] on 03/07/2025. She has a PMH of diabetes mellitus, neuropathy, ESRD on dialysis MWF followed by Dr. 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 noticed open wound on the back of her ankle and redness which has become progressively worse with some swelling. ER evaluation demonstrates erythema, mild edema surrounding the ulcer above her calcaneus on the right foot in a circumferential fashion. No active purulence. Urinalysis with 4+ bacteria, wbc's, few squamous cells, leukocyte esterase positive, nitrite negative. CT right lower extremity with contrast demonstrating diffuse soft tissue edema, no fluid collection, multi vessel stenosis. Right lower extremity warmth to touch, pedal pulses faint and otherwise dopplerable. Good sensation, week due to prior CVA. Good capillary refill. Administer vancomycin, cefepime, metronidazole, Diflucan. Blood cu lture and urine cultures obtained. ----- Continue vancomycin. Monitor for improvement. Follow-up urine and blood cultures. Good perfusion, neurovascular exam intact. Advised follow-up with vascular surgery. Currently normal sinus rhythm. Continue MEDICAL INFORMATION SPECIALIST apixaban, amiodarone, metoprolol. Accu-Cheks a.c. HS with low-dose insulin sliding scale. Nephrology consultation for inpatient dialysis. Full code. Hospitalist MIPS Advance Care Plan I have confirmed that the patient's Advanced Care Plan is present, code status i s documented, or surrogate decision maker is listed in patient medical record.: Yes Medication Reconciliation I have utilized all available resources to obtain, update and review the patients current medications (includes all prescriptions, OTC, herbals, cannabis, and nutritional supplements).: Yes
--- NOTE | 2025-03-08 06:48 | ADMGEN ---
This patient, Gregoria Rae, was admitted to Medical Room 258-. Patient/family oriented to hospital policies and general routines including ID bracelet, bed and alarms, visiting hours, pain management, procedures, bathroom and other care routines, personal items, smoking policy, room service/diet, and visiting hours. Information on how to activate the Rapid Response Team has been discussed. Patient/Family are encouraged to report perceived risks to care and to ask questions if they do not understand what they are told or what they should do.
--- NOTE | 2025-03-08 07:41 | P.PNIM_ITS ---
Progress Note: A&P Assessment and Plan (1) Acute UTI: Code(s): N39.0 - Urinary tract infection, site not specified Status: Acute Assessment and Plan: ED UA: Turbid, 3+ blood, 3+ leuks, WBC >100, 4+ bacteria 03/08: Unable to communicate to me if symptomatic, no TTP suprapubic abd -Pending UC -Continue cefepime with pharm help for dosing due to HD (e. coli UTI in Jan 2025) (2) Cellulitis of right leg: Code(s): L03.115 - Cellulitis of right lower limb Status: Acute Assessment and Plan: Continue vancomycin. Monitor for improvement. Follow-up urine and blood cultures. Good perfusion, neurovascular exam intact. Advised follow-up with vascular surgery. 03/08: -BC pending -Dopplerable pulses -Continue vanc with help from pharm with dosing due to HD (3) End stage renal disease: Code(s): N18.6 - End stage renal disease Status: Chronic Assessment and Plan: Nephrology consultation for inpatient dialysis. Pt HD schedule MW (4) Type 2 diabetes mellitus with hyperglycemia: Qualifiers: Diabetes mellitus fci insulin use: with fci use Qualified Code(s): E11.65 - Type 2 diabetes mellitus with hyperglycemia; Z79.4 - local [employer] (current) use of insulin Code(s): E11.65 - Type 2 diabetes mellitus with hyperglycemia Status: Chronic Assessment and Plan: Accu-Cheks a.c. HS with low-dose insulin sliding scale. 03/08: FBS 131 A1C 6.5 (5) Atrial fibrillation: Code(s): I48.91 - Unspecified atrial fibrillation Status: Chronic Assessment and Plan: Currently normal sinus rhythm via ED EKG. Continue P[employer] apixaban, amiodarone, metoprolol. (6) Asthma-COPD overlap syndrome: Code(s): J44.9 - Chronic obstructive pulmonary disease, unspecified Status: Acute Assessment and Plan: Continue home meds once med rec completed (7) ARACELY (generalized anxiety disorder): Code(s): F41.1 - Generalized anxiety disorder Status: Acute Assessment and Plan: Continue Lexapro and Ativan once med rec completed Plan Modified code, no intubation HD tomorrow, continue abx for UTI and cellulitis Time Spent With Patient Time: 45 Subjective Date/time seen: 03/08/25 0859 Interval history: 74-year-old female to urgent care by her for right leg redness, urgent care referred patient to [facility] on 03/07/2025. She has a PMH of diabetes mellitus, neuropathy, ESRD on dialysis MWF followed by Dr. 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 noticed open wound on the back of her ankle and redness which has become progressively worse with some swelling. ER evaluation demonstrates erythema, mild edema surrounding the ulcer above her calcaneus on the right foot in a circumferential fashion. No active purulence. Urinalysis with 4+ bacteria, wbc's, few squamous cells, leukocyte esterase positive, nitrite negative. CT right lower extremity with contrast demonstrating diffuse soft tissue edema, no fluid collection, multi vessel stenosis. Right lower extremity warmth to touch, pedal pulses faint and otherwise dopplerable. Good sensation, week due to prior CVA. Good capillary refill. Administer vancomycin, cefepime, metronidazole, Diflucan. Blood culture and urine cultures obtained. 03/08: Pt resting comfortably in bed with expressive aphasia when trying to communicate. Pt with moderate restless legs when examining. Denies pain (without palpation) as far as my assessment yields. Per nursing, daughter, Gwen, was contacted and med rec will be performed. Upon re-exam, daughter at the bedside, Gwen. The pt, Gwen, and I discussed the pt's wishes for a modified code status of CPR but with no intubation. This has been reflected in the chart. Review of Systems Review of Systems: All systems reviewed & are unremarkable except as noted in HPI and below (Subjective) ROS unobtainable: Yes unobtainable due to medical condition (expressive aphasia) Exam Const: General: comfortable and no acute distress Other: Alert, expressive aphasia HENMT: Face/Nose/Sinus: Normal nares present Mouth: Yes moist mucous membranes Eyes: Pupils: Equal, round and reactive pupils present Neck: Neck: supple Resp: Effort & Inspection: normal respiratory effort Auscultation: clear to auscultation bilaterally Cardio: Rate: regular rate Rhythm: regular rhythm Heart sounds: no murmurs GI: Inspection: non-distended : Other: See skin Urinary Catheter: Urinary Catheter: patent and draining and urine clear Skin: Other: Erythema under pannus as well as bilateral inguinal folds, TTP but blanchable. Fungal powder in place. Neuro: Cranial nerves: Yes Equal, round and reactive pupils present Extrem: General: edema Other: RLE: Scattered scratches with small scabbings. No open wound. Circumferential erythema and mild edema. TTP. Restless legs with exam. Dopplerable DP & PT pulses on R, sites marked with X Posterior leg right above Achilles: Healing scab, approx 4x5cm R second toe: healing scab, approx 2x2cm Psych: Affect: normal affect Objective Data Vital Signs Vital Signs: Vital Signs - 24 hr 03/07/25 19:27 03/07/25 19:38 03/07/25 19:39 Temperature 97.7 F Pulse Rate 57 L 58 L 58 L Respiratory Rate 16 9 L 10 L Blood Pressure 153/55 H 164/62 H Pulse Oximetry 99 98 97 Oxygen Delivery Room Air 03/07/25 19:45 03/07/25 19:46 03/07/25 19:53 Temperature Pulse Rate 56 L 57 L 56 L Respiratory Rate 10 L 10 L 8 L Blood Pressure 160/61 H 160/61 H Pulse Oximetry 98 99 98 Oxygen Delivery 03/07/25 20:00 03/07/25 20:08 03/07/25 20:15 Temperature Pulse Rate 56 L 68 56 L Respiratory Rate 10 L 16 16 Blood Pressure 161/68 H Pulse Oximetry 97 Oxygen Delivery 03/07/25 20:30 03/07/25 20:56 03/07/25 21:00 Temperature Pulse Rate 56 L 58 L 58 L Respiratory Rate 15 13 Blood Pressure Pulse Oximetry 98 97 Oxygen Delivery 03/07/25 21:15 03/07/25 21:30 03/07/25 21:44 Temperature Pulse Rate 59 L 62 59 L Respiratory Rate 16 18 16 Blood Pressure 151/72 H Pulse Oximetry Oxygen Delivery 03/07/25 21:45 03/07/25 22:00 03/07/25 22:01 Temperature Pulse Rate 58 L 59 L 59 L Respiratory Rate 15 19 17 Blood Pressure 166/69 H Pulse Oximetry Oxygen Delivery 03/07/25 22:15 03/07/25 22:30 03/07/25 22:31 Temperature Pulse Rate 58 L 59 L 59 L Respiratory Rate 15 14 12 Blood Pressure 152/54 H Pulse Oximetry Oxygen Delivery 03/07/25 22:45 03/07/25 23:00 03/07/25 23:01 Temperature Pulse Rate 57 L 56 L 56 L Respiratory Rate 11 L 14 13 Blood Pressure 156/51 H Pulse Oximetry Oxygen Delivery 03/07/25 23:02 03/07/25 23:15 03/07/25 23:30 Temperature Pulse Rate 56 L 55 L 57 L Respiratory Rate 14 14 12 Blood Pressure Pulse Oximetry Oxygen Delivery 03/07/25 23:45 03/08/25 00:00 03/08/25 00:01 Temperature Pulse Rate 57 L 56 L 58 L Respiratory Rate 12 13 15 Blood Pressure 163/59 H Pulse Oximetry Oxygen Delivery 03/08/25 00:15 03/08/25 00:30 03/08/25 00:36 Temperature Pulse Rate 61 57 L 56 L Respiratory Rate 21 H 14 14 Blood Pressure 166/59 H Pulse Oximetry Oxygen Delivery 03/08/25 00:45 03/08/25 01:00 SURVEILLANCE SUPERVISOR 03/08/25 01:01 SURVEILLANCE SUPERVISOR Temperature Pulse Rate 56 L 55 L 55 L Respiratory Rate 14 14 17 Blood Pressure 157/62 H 164/66 H Pulse Oximetry Oxygen Delivery 03/08/25 01:15 SURVEILLANCE SUPERVISOR 03/08/25 01:30 SURVEILLANCE SUPERVISOR 03/08/25 01:31 SURVEILLANCE SUPERVISOR Temperature Pulse Rate 54 L 57 L Respiratory Rate 16 14 Blood Pressure 156/58 H 151/53 H Pulse Oximetry Oxygen Delivery 03/08/25 01:45 SURVEILLANCE SUPERVISOR 03/08/25 02:00 03/08/25 02:15 Temperature Pulse Rate 59 L 61 59 L Respiratory Rate 13 14 10 L Blood Pressure Pulse Oximetry Oxygen Delivery 03/08/25 02:30 03/08/25 02:36 03/08/25 02:45 Temperature Pulse Rate 59 L 60 58 L Respiratory Rate 14 16 19 Blood Pressure 151/72 H Pulse Oximetry Oxygen Delivery 03/08/25 03:00 03/08/25 03:02 03/08/25 03:03 Temperature Pulse Rate 57 L 61 58 L Respiratory Rate 17 14 14 Blood Pressure 147/60 H Pulse Oximetry Oxygen Delivery 03/08/25 03:15 03/08/25 03:30 03/08/25 03:31 Temperature Pulse Rate 57 L 61 61 Respiratory Rate 16 17 13 Blood Pressure 157/57 H Pulse Oximetry 94 97 Oxygen Delivery 03/08/25 03:45 03/08/25 04:00 03/08/25 04:07 Temperature Pulse Rate 59 L 61 62 Respiratory Rate 13 14 16 Blood Pressure 150/55 H Pulse Oximetry 96 92 Oxygen Delivery 03/08/25 04:15 03/08/25 04:30 03/08/25 04:45 Temperature Pulse Rate 61 63 64 Respiratory Rate 12 19 16 Blood Pressure Pulse Oximetry 95 Oxygen Delivery 03/08/25 05:00 03/08/25 05:15 03/08/25 05:30 Temperature Pulse Rate 67 61 62 Respiratory Rate 16 14 12 Blood Pressure Pulse Oximetry Oxygen Delivery 03/08/25 05:40 03/08/25 05:59 Temperature 98.3 F Pulse Rate 63 62 Respiratory Rate 17 16 Blood Pressure 151/79 H Pulse Oximetry 97 94 Oxygen Delivery Intake/Output Intake/Output: Intake & Output 03/05/25 03/06/25 03/07/25 03/08/25 23:59 23:59 23:59 22:59 Intake Total 1150 600 Output Total 75 Balance 1075 600 Meds/Results Medications: Active Medications Generic Name Dose Route Start Last Admin Trade Name Freq PRN Reason Stop Dose Admin Acetaminophen 650 mg 03/08/25 04:58 Acetaminophen 325 Mg Tablet PO Q4H PRN Mild Pain (1-3) or Fever Dextrose 12.5 gm 03/08/25 05:58 Dextrose 50% 25 Gm/50 Ml Syringe IV PUSH PRN PRN Hypoglycemia Protocol Glucose 15 gm 03/08/25 05:58 Glucose Oral Gel 15 Gm Of Glucse In 37.5 Gm Tube PO PRN PRN Hypoglycemia Protocol Dextrose 1,000 mls @ 100 mls/hr 03/08/25 05:58 Dextrose 5% 1,000 Ml IVPB PRN PRN Hypoglycemia Protocol Insulin Aspart 2 - 5 units 03/08/25 08:00 Insulin Aspart (*Bkc) 100 Units/Ml SUB-Q TIDWM ALINA Protocol Insulin Aspart 1 - 2 units 03/08/25 21:00 Insulin Aspart (*Bkc) 100 Units/Ml SUB-Q HS ALINA Protocol Ondansetron HCl 4 mg 03/08/25 04:58 Ondansetron Inj 4 Mg/2 Ml Vial IV PUSH Q4H PRN Nausea Vancomycin HCl 1 each 03/07/25 23:17 Vancomycin For Hemodialysis IVPB PRN PRN Vancomycin Protocol Labs Labs: Laboratory Results - last 24 hr 03/07/25 03/07/25 21:27 21:38 WBC 8.0 RBC 3.60 L Hgb 9.6 L Hct 32.3 L MCV 89.7 MCH 26.7 MCHC 29.7 L RDW 18.1 H Plt Count 225 MPV 10.0 Immature Gran % (Auto) 0.4 Neut % (Auto) 67.0 Lymph % (Auto) 16.3 L [place] % (Auto) 11.6 H Eos % (Auto) 4.1 Baso % (Auto) 0.6 Lymph # (Auto) 1.31 [place] # (Auto) 0.9 H Eos # (Auto) 0.3 Baso # (Auto) 0.1 Abs Immat Gran (auto) 0.03 Absolute Neuts (auto) 5.4 Absolute Nucleated RBC 0.000 Band Neutrophils % Not Reportable Nucleated RBC % 0.0 Platelet Estimate Adequate Hypochromasia 1+ Ovalocytes Occasional Schistocytes None seen PT 17.5 H INR 1.5 APTT 35.8 Sodium 137 Potassium 4.2 Chloride 92 L Carbon Dioxide 35 H Anion Gap 10 BUN 40 H Creatinine 4.73 H Estim Creat Clear Calc Not Reportable Estimated GFR 9 L Glucose 131 H Hemoglobin A1c 6.5 H Lactic Acid 0.9 Calcium 8.7 Total Bilirubin 0.8 AST 27 ALT 18 Alkaline Phosphatase 112 C-Reactive Protein 1.4 H Total Protein 7.7 Albumin 3.9 Urine Color Dark yellow Urine Appearance Turbid H Urine pH 7.0 Ur Specific [place] 1.017 Urine Protein 3+ H Urine Glucose (UA) Negative Urine Ketones Negative Ur Blood (Man) 3+ H Urine Nitrate Negative Urine Bilirubin Negative Urine Urobilinogen 1.0 Add Ur Microanalysis Reviewed Leukocyte Esterase Rfl 3+ H Urine RBC >100 H Urine WBC >100 H Ur Squamous Epith Cells Few Urine Bacteria 4+ H Urine Casts 3-5 Quality VTE Prophylaxis VTE prophylaxis: pharmacologic ordered Hospitalist MIPS Advance Care Plan I have confirmed that the patient's Advanced Care Plan is present, code status is documented, or surrogate decision maker is listed in patient medical record.: Yes
--- NOTE | 2025-03-08 11:53 | PM.CNNEP ---
Assessment and Plan Assessment and plan (1) End stage renal disease: Code(s): N18.6 - End stage renal disease Status: Chronic Assessment and Plan: HD tomorrow continue M/W/F outpatient dialysis schedule follow electrolytes, volume status, and clearance (2) Cellulitis of right leg: Code(s): L03.115 - Cellulitis of right lower limb Status: Acute Assessment and Plan: as noted by clinical exam CT findings of RLE noted follow culture data on antibiotics (3) UTI (urinary tract infection): Code(s): N39.0 - Urinary tract infection, site not specified Status: Acute Assessment and Plan: admission UA highly suggestive follow culture data on antibiotics (4) Anemia: Code(s): D64.9 - Anemia, unspecified Status: Chronic Assessment and Plan: due to ESRD RADHA/Epogen with HD follow trend of H/H (5) Hypertension: Qualifiers: Hypertension type: unspecified Qualified Code(s): I10 - Essential (primary) hypertension Code(s): I10 - Essential (primary) hypertension Status: Chronic Assessment and Plan: reasonable control resume home BP medications follow trend of hemodynamics (6) Type 2 diabetes mellitus with hyperglycemia: Qualifiers: Diabetes mellitus paver insulin use: with paver use Qualified Code(s): E11.65 - Type 2 diabetes mellitus with hyperglycemia; 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 Thank you for allowing me to participate in the care of this patient. History of Present Illness Reason for Consult Consult date: 03/08/25 Reason for consult: end stage renal disease Chief Complaint Chief complaint: Right lower extremity cellulitis History of Present Illness Narrative: Most of the history that I have obtained is review the electronic medical record as well as discussion with the physician/nurses involved in the patient's care as is difficult to get a full and complete history from the patient due to her expressive aphasia secondary to her previous/history of CVAs. The patient is a 74-year-old female with a past medical history as outlined below who presented to [facility] Emergency Room for further evaluation of right lower extremity redness/swelling in association with an open wound. According to the patient's per ER documentation, she has an open wound to the back of her right lower extremity for an undisclosed period of time and he did not realize the severity of the redness/erythema until yesterday. She was apparently taken to an urgent care center for initial evaluation of this issue/problem but given her complex medical history as well as the severity of the physical exam findings, she was recommended to come to the emergency room for further assessment. Workup and evaluation emergency room demonstrated the patient to be hemodynamically stable and afebrile. Routine blood test demonstrated white blood cell count of 8.0, hemoglobin 9.6, platelet count of 225, sodium 137, potassium 4.2, bicarb 35, BUN 40, creatinine 4.73, glucose 131, calcium 8.7, normal LFTs, albumin 3.9, C reactive protein 1.4, and a hemoglobin A1c of 6.5. Her urinalysis was concerning for possible UTI with a turbid appearance, 3+ protein, 3+ blood, 3+ leukocyte esterase, greater than 100 red blood cells, greater than 100 white blood cells, and 4+ bacteria. Plain x-rays of her right lower extremity did not demonstrate any acute fractures but was notable for degenerative joint disease and arthritis along with a chronic appearing fracture of the 4th proximal phalanx toe at the distal metaphysis and osteotomy of the 5th metatarsal neck. Subsequent CT scan of the right lower extremity demonstrated diffuse soft tissue edema, no fluid collection, and multi vessel stenosis. After appropriate cultures were obtained, the patient was started on broad-spectrum IV antibiotics for right lower extremity cellulitis and her urinary tract infection. She was subsequently admitted to the hospital for further evaluation therapy. The patient's brought her to the emergency room as seemed that she had been more restless and more fatigued than her baseline. Apparently, over the last couple of weeks, she has been having issues and problems with significant diarrhea. She saw her primary care physician at that time due to these complaints and there was a concern that her dietary intake may be response for this symptom. There was no associated foul odor to the stool, hematochezia, melena, abdominal pain, or associated vomiting. She was apparently on antibiotics at that time for a urinary tract infection that was diagnosed at a local urgent care center. C diff toxin assay was ordered but for some reason appears that it was canceled although the reported that her diarrhea has improved if not resolved; stool culture was apparently negative for any other infectious source of diarrhea. Nevertheless, due to her ongoing fatigue and weakness, her brought her to the emergency room for further assessment. According to the , the patient did not have any complaints of chest pain, shortness of breath, nausea, vomiting, or pain. Since her admission to the hospital, the patient appears to be at her baseline with regard to her mental status. She denies any acute complaints and seems comfortable although history is somewhat limited by her expressive aphasia as already mentioned above. Renal consultation was requested due to her end-stage renal disease. The patient normally dialyzes on a Sunday, Sunday, Sunday schedule at [facility] under the care of Dr. Jame Dumont. From a dialysis perspective, she has been doing reasonably well and compliant with her treatments. She does have issues and problems with significant fluid gains in between her dialysis sessions which can result in difficulty achieving her dry weight. This is further complicated by the fact that sometimes the patient is unable stay still when she does her dialysis treatments and since has a AVF for her dialysis access, there is always a concern that she is at risk for pulling out her needles leading to her treatments ending early. Her last dialysis treatment was on Sunday - 03/06 at her outpatient dialysis clinic But apparently that treatment was cut short by 30 minutes. She is next due for dialysis tomorrow. Currently, at the time my visit, she is resting comfortably in no apparent distress. Review of Systems Review of Systems: As per HPI. 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 Paroxysmal atrial fibrillation Bilateral primary osteoarthritis of knee Renal osteodystrophy DVT of lower extremity (deep venous thrombosis) Asthma-COPD overlap syndrome Left-sided cerebrovascular accident (CVA) (01/04/24) With residual left-sided visual neglect, profound expressive aphasia and right-sided hemiplegia ESRD on hemodialysis (02/17/22) Chronic anticoagulation Obstructive sleep apnea Hypothyroidism Insulin dependent type 2 diabetes mellitus Generalized anxiety disorder Chronic obstructive pulmonary disease Chronic diastolic (congestive) heart failure Coronary artery disease involving wiyot heart without angina pectoris Depression GERD without esophagitis Peripheral polyneuropathy Surgical History Surgical History History of tracheostomy (04/24/22) With subsequent removal History of cataract extraction History of tonsillectomy History of cholecystectomy History of gastrostomy tube placement and removal Family History Family History Father Hypertension Family history of coronary artery disease Sibling Hypertension Family history of coronary artery disease Mother Cerebrovascular accident Other Asthma Depression Family history of Alzheimer's disease Family history of arthritis Family history of cardiovascular disease Family history of lymphoma Family history of obesity Family history of seizure disorder Social History Social History Social History: Surrogate medical decision maker: Anjum (spouse) or Gwen (daughter) Kyra. Code status: Full code. Smoking packs per day: 1 Smoking cigarettes per day: 20.0 Years smoked: 22 Smoking pack-years: 22.00 Smoking status: Former smoker Tobacco type: cigarettes Second hand tobacco smoke exposure: No Smoking end date: 05/07/84 Alcohol intake: never Alcohol use details: special occasions Substance use: never Substance use type: does not use Last use: 01/05/23 Do You Feel Safe in your Home?: Yes Lack of Transportation: No Lack of Food: Never True Current Housing: I Have Housing Concerned About Future Housing: No Difficulty Paying Gas/Electric Bills: No Difficulty Paying for Meds: No Currently Unemployed: No Education: High School Diploma/GED Difficulty w/ Childcare or Family Care: No Living arrangements: with family Occupation/Education: retired Spiritual care concerns: Yes (buddhist) Meds Home Medications and Allergies Home Medications ?Medication ?Instructions ?Recorded ?Confirmed ?Type albuterol sulfate 2.5 mg/3 mL 2.5 mg (3 mL) inhalation Q4-6H PRN 07/10/23 03/08/25 Rx (0.083 %) solution for nebulization shortness of breath or wheezing #90 mL Ventolin HFA 90 mcg/actuation See Rx Instructions .Route 05/20/24 03/08/25 Rx aerosol inhaler (albuterol sulfate) .COMPLEX #18 grams insulin aspart U-100 100 unit/mL See Rx Instructions .Route .COMPLEX 05/20/24 03/08/25 History (3 mL) subcutaneous pen (Novolog FlexPen U-100 Insulin aspart) metoprolol succinate 50 mg 50 mg PO QAM #90 tabs 05/20/24 03/08/25 Rx tablet,extended release 24 hr montelukast 10 mg tablet 10 mg PO DAILY #90 tabs 07/04/24 03/08/25 Rx budesonide-formoterol HFA 160 2 puff inhalation Q12H #10.2 grams 07/17/24 03/08/25 Rx mcg-4.5 mcg/actuation aerosol inhaler amiodarone 200 mg tablet 200 mg PO QAM 09/02/24 03/08/25 History insulin glargine 100 unit/mL (3 18 unit subcut QPM 09/02/24 03/08/25 History mL) subcutaneous pen (Lantus Solostar U-100 Insulin) ropinirole 2 mg tablet 0.5 mg PO Q12H 09/02/24 03/08/25 History fluticasone propionate 50 2 spray intranasal DAILY PRN nasal 10/20/24 03/08/25 Rx mcg/actuation nasal congestion #16 grams spray,suspension atorvastatin 20 mg tablet (Lipitor) 20 mg PO HS #90 tabs 11/03/24 03/08/25 Rx trazodone 50 mg tablet 50 mg PO QHS #30 tabs 11/03/24 03/08/25 Rx escitalopram oxalate 5 mg tablet 5 mg PO DAILY #90 tabs 11/04/24 03/08/25 Rx (Lexapro) hydralazine 25 mg tablet 25 mg PO TID #270 tabs 12/04/24 03/08/25 Rx levothyroxine 175 mcg tablet See Rx Instructions .Route 01/27/25 03/08/25 Rx .COMPLEX #90 tabs cholestyramine 4 gram oral powder 4 g PO BID #60 ea 02/02/25 03/08/25 Rx for suspension in a packet (Cholestyramine Light) lorazepam 0.5 mg tablet (Ativan) 0.5 mg PO BID PRN anxiety #60 tabs 02/02/25 03/08/25 Rx isosorbide mononitrate 30 mg 30 mg PO DAILY #90 tabs 03/02/25 03/08/25 Rx tablet,extended release 24 hr apixaban 2.5 mg tablet (Eliquis) 2.5 mg PO BID 03/08/25 03/08/25 History Allergies Allergy/AdvReac Type Severity Reaction Status Date / Time nickel Allergy Intermediate hives and Verified 03/08/25 12:57 itchy rash Sulfa (Sulfonamide Allergy Intermediate Urticaria Verified 03/08/25 12:57 Antibiotics) and hives Calcium Channel Blocking AdvReac Intermediate STATES Verified 03/08/25 12:57 Agents-Dih CANNOT TAKE SINCE SHE HAS ASTHMA diphenhydramine AdvReac Intermediate restless Verified 03/08/25 12:57 legs nifedipine AdvReac Intermediate palpitation Verified 03/08/25 12:57 s Oryramh-SRT-UcZ Reductase AdvReac Intermediate muscle Verified 03/08/25 12:57 Inhibitor (Voifpov-Jzo-Ijz cramps Reductase Inhibitor) Vital Signs Vital Signs Temp Pulse Resp BP Pulse Ox O2 Del Method 03/08/25 11:09 98.6 F 64 16 130/52 L 94 Room Air 03/08/25 08:00 98.0 F 60 16 148/70 H 94 03/08/25 05:59 98.3 F 62 16 151/79 H 94 03/08/25 05:40 63 17 97 03/08/25 05:30 62 12 03/08/25 05:15 61 14 03/08/25 05:00 67 16 03/08/25 04:45 64 16 03/08/25 04:30 63 19 03/08/25 04:15 61 12 95 03/08/25 04:07 62 16 150/55 H 92 03/08/25 04:00 61 14 03/08/25 03:45 59 L 13 96 03/08/25 03:31 61 13 157/57 H 97 03/08/25 03:30 61 17 94 03/08/25 03:15 57 L 16 03/08/25 03:03 58 L 14 03/08/25 03:02 61 14 147/60 H 03/08/25 03:00 57 L 17 03/08/25 02:45 58 L 19 03/08/25 02:36 60 16 151/72 H 03/08/25 02:30 59 L 14 03/08/25 02:15 59 L 10 L 03/08/25 02:00 61 14 03/08/25 01:45 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 59 L 13 03/08/25 01:31 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 151/53 H 03/08/25 01:30 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 57 L 14 156/58 H 03/08/25 01:15 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 54 L 16 03/08/25 01:01 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 55 L 17 164/66 H 03/08/25 01:00 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 55 L 14 157/62 H 03/08/25 00:45 56 L 14 03/08/25 00:36 56 L 14 166/59 H 03/08/25 00:30 57 L 14 03/08/25 00:15 61 21 H 03/08/25 00:01 58 L 15 163/59 H 03/08/25 00:00 56 L 13 03/07/25 23:45 57 L 12 03/07/25 23:30 57 L 12 03/07/25 23:15 55 L 14 03/07/25 23:02 56 L 14 03/07/25 23:01 56 L 13 156/51 H 03/07/25 23:00 56 L 14 03/07/25 22:45 57 L 11 L 03/07/25 22:31 59 L 12 152/54 H 03/07/25 22:30 59 L 14 03/07/25 22:15 58 L 15 03/07/25 22:01 59 L 17 166/69 H 03/07/25 22:00 59 L 19 03/07/25 21:45 58 L 15 03/07/25 21:44 59 L 16 151/72 H 03/07/25 21:30 62 18 03/07/25 21:15 59 L 16 03/07/25 21:00 58 L 13 97 03/07/25 20:56 58 L 98 03/07/25 20:30 56 L 15 03/07/25 20:15 56 L 16 03/07/25 20:08 68 16 161/68 H 03/07/25 20:00 56 L 10 L 97 03/07/25 19:53 56 L 8 L 160/61 H 98 03/07/25 19:46 57 L 10 L 160/61 H 99 03/07/25 19:45 56 L 10 L 98 03/07/25 19:39 58 L 10 L 164/62 H 97 03/07/25 19:38 58 L 9 L 98 03/07/25 19:27 97.7 F 57 L 16 153/55 H 99 Room Air Exam Narrative: GENERAL APPEARANCE: elderly but well developed well nourished female in no acute distress HEENT: normocephalic, atraumatic, normal conjunctiva and sclera, nares patient NECK: no lymphadenopathy, thyromegaly, or JVD MOUTH: normal lips, teeth, and gums CARDIOVASCULAR: RRR, normal S1 and S2, no rub RESPIRATORY: clear anteriorly; decreased at bases ABDOMEN: soft, nontender, nondistended, positive bowel sounds present EXTREMITIES: no evidence of cyanosis, clubbing, or edema NEUROLOGICAL: awake and alert; expressive aphasia present; noted right sided weakness SKIN: right lower extremity erythema and swelling noted; +TTP Results Lab Results 03/07/25 21:27 03/07/25 21:27 Lab results: Most recent lab results Calcium 8.7 mg/dL (8.4-10.2) 03/07/25 21:27
[2025-03-08] MEDS: AMIODARONE HCL 200 MG TABLET PO (12:16)
[2025-03-08] MEDS: APIXABAN 2.5 MG TABLET PO ×2 (12:16→18:08)
[2025-03-08] MEDS: MONTELUKAST SODIUM 10 MG TABLET PO (12:16)
[2025-03-08] MEDS: ISOSORBIDE MONONITRATE 30 MG TAB.ER.24H PO (12:16)
[2025-03-08] MEDS: ESCITALOPRAM OXALATE 5 MG TABLET PO (12:17)
[2025-03-08] MEDS: ACETAMINOPHEN 325 MG TABLET 650 MG PO (12:17)
[2025-03-08] MEDS: METOPROLOL SUCCINATE EXT REL 50 MG TABCR PO (12:17)
[2025-03-08] MEDS: INSULIN ASPART (*BKC) 100 UNITS/ML SUB-Q ×2 (12:42→18:09)
[2025-03-08 15:05] LABS: MRSA (PCR) NOT DETECTED (NOT DETECTE)
--- NOTE | 2025-03-08 16:50 | PC.NURSE ---
spoke with CT and asked if patient could get CTA after dialysis tomorrow as requested by Millicent SOTO. The person in CT said it would be better for her to get the CTA tonight so it can be flushed out by dialysis tomorrow. Made Millicent SOTO aware of that.Pt to go down for CTA tonight
[2025-03-08] MEDS: CHOLESTYRAMINE LIGHT 4 GM POWD.PACK PO (18:08)
[2025-03-08] MEDS: FLUTICASONE/SALMETEROL 115-21 MCG INHALER 1 PUFF 2 PUFF INHALATION (20:17)
[2025-03-08] MEDS: ATORVASTATIN 20 MG TABLET PO (20:54)
[2025-03-08] MEDS: [UNRECOGNIZED DRUG - OTHER] IVPB (20:54)
[2025-03-08] MEDS: CEFEPIME IVPB (20:54)
[2025-03-09] VITALS (28 sets, daily range): BP systolic 133–177; BP diastolic 50–109; PULSE 53–84; RESP 14–18; TEMP 35.9–37; O2SAT 93–100
[2025-03-09 05:05] LABS: Hematocrit 29.0 % (37.0-47.0); Hemoglobin 8.7 g/dL (12.0-15.0); Immature Granulocyte Percent A 0.3 % (0-0.5); Lymphocytes Absolute Auto 1.20 K/mm3 (0.9-3.2); Mean Corpuscular HGB Conc 30.0 g/dl (32-36); Mean Corpuscular Hemoglobin 26.9 pg (26-34); Mean Corpuscular Volume 89.5 fl (80-100); Nucleated Red Blood Cells Absolute Auto 0.000 K/mm3 (0.0-0.012); Nucleated Red Blood Cells Perc 0.0 % (0.0-0.2); Platelet Count Result 200 k/mm3 (150-375); Red Blood Count 3.24 M/mm3 (4.2-5.4); White Blood Count 7.4 K/mm3 (4.5-10.0)
[2025-03-09 05:34] LABS: Alanine Aminotransferase 15 U/L (6-35); Albumin Level 3.3 g/dL (3.5-5.1); Alkaline Phosphatase 104 U/L (38-126); Anion Gap 12 mmol/L (4-12); Aspartate Amino Transferase 25 U/L (14-36); Bilirubin,Total 0.6 mg/dL (0.2-1.3); Calcium 8.0 mg/dL (8.4-10.2); Carbon Dioxide 28 mmol/L (22-30); Chloride 93 mmol/L (98-107); Glucose 143 mg/dL (65-110); Potassium 4.4 mmol/L (3.4-5.0); Sodium 133 mmol/L (137-145); Total Protein 6.6 g/dL (6.3-8.2)
[2025-03-09 05:44] LABS: Blood Urea Nitrogen 47 mg/dL (7-17); Estimated CRCL calculation 8 ml/min; Estimated Glomerular Filt Rate 6
[2025-03-09 06:02] LABS: Hepatitis B Surface Antigen Negative (Negative)
[2025-03-09 06:19] LABS: Hepatitis B Surface Anti Res Negative
[2025-03-09] MEDS: LEVOTHYROXINE SODIUM 100 MCG TABLET PO (06:42)
[2025-03-09] MEDS: LEVOTHYROXINE SODIUM 75 MCG TABLET PO (06:42)
[2025-03-09] MEDS: FLUTICASONE/SALMETEROL 115-21 MCG INHALER 1 PUFF 2 PUFF INHALATION ×2 (07:49→20:20)
[2025-03-09] MEDS: MONTELUKAST SODIUM 10 MG TABLET PO (09:37)
[2025-03-09] MEDS: APIXABAN 2.5 MG TABLET PO ×2 (09:38→18:39)
[2025-03-09] MEDS: AMIODARONE HCL 200 MG TABLET PO (09:38)
[2025-03-09] MEDS: ESCITALOPRAM OXALATE 5 MG TABLET PO (09:38)
[2025-03-09] MEDS: CHOLESTYRAMINE LIGHT 4 GM POWD.PACK PO ×2 (09:38→18:39)
--- NOTE | 2025-03-09 11:08 | P.PNIM_ITS ---
Progress Note: A&P Assessment and Plan (1) Acute UTI: Code(s): N39.0 - Urinary tract infection, site not specified Status: Acute Assessment and Plan: ED UA: Turbid, 3+ blood, 3+ leuks, WBC >100, 4+ bacteria 03/08: Unable to communicate to me if symptomatic, no TTP suprapubic abd -Pending UC -Continue cefepime with pharm help for dosing due to HD (e. coli UTI in Jan 2025) 03/09: Unable to communicate to me if symptomatic, no TTP suprapubic abd -Pending UC -Switching abx to Augmentin PO (pharm to dose, 500mg daily with HD). -D/C stokes catheter today (2) Cellulitis of right leg: Code(s): L03.115 - Cellulitis of right lower limb Status: Acute Assessment and Plan: Continue vancomycin. Monitor for improvement. Follow-up urine and blood cultures. Good perfusion, neurovascular exam intact. Advised follow-up with vascular surgery. 03/08: -BC pending -Dopplerable pulses -Continue vanc with help from pharm with dosing due to HD 03/09: Cellulitis ruled out. See below. -CTA performed due to CT recs. CTA recs for conventional angiogram due to Severe atherosclerotic changes...with critical stenosis of the junction of the superficial femoral and femoral arteries detailed -Lower extremities not performed at this location. Spoke to and updated pt and her daughter, Gwen, and they preference would be [facility] if transfer would be needed. Spoke to [facility] transfer center and got in touch with a vascular physician that stated if limb ischemia was not an acute risk, they pt can be seen as an outpt f/u with [facility] at [phone]. Pt and daughter agreeable with this plan. Limb is not at acute risk for ischemia. Limb pulse continue to be dopplerable. (3) End stage renal disease: Code(s): N18.6 - End stage renal disease Status: Chronic Assessment and Plan: Nephrology consultation for inpatient dialysis. 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 HS with low-dose insulin sliding scale. 03/08: FBS 131 A1C 6.5 03/09: FBS 143 (5) Atrial fibrillation: Code(s): I48.91 - Unspecified atrial fibrillation Status: Chronic Assessment and Plan: Currently normal sinus rhythm via ED EKG. 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 (6) Asthma-COPD overlap syndrome: Code(s): J44.9 - Chronic obstructive pulmonary disease, unspecified Status: Acute Assessment and Plan: Continue home meds once med rec completed (7) ARACELY (generalized anxiety disorder): Code(s): F41.1 - Generalized anxiety disorder Status: Acute Assessment and Plan: Continue Lexapro and Ativan once med rec completed Plan Modified code, no intubation HD today, continue abx for UTI (PO), hopeful d/c tomorrow Time Spent With Patient Time: 45 Subjective Date/time seen: 03/09/25 0935 Interval history: 74-year-old female to urgent care by her for right leg redness, urgent care referred patient to [place] [facility] on 03/07/2025. She has a PMH of diabetes mellitus, neuropathy, ESRD on dialysis MWF followed by Dr. 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 [facility] noticed open wound on the back of her ankle and redness which has become progressively worse with some swelling. ER evaluation demonstrates erythema, mild edema surrounding the ulcer above her calcaneus on the right foot in a circumferential fashion. No active purulence. Urinalysis with 4+ bacteria, wbc's, few squamous cells, leukocyte esterase positive, nitrite negative. CT right lower extremity with contrast demonstrating diffuse soft tissue edema, no fluid collection, multi vessel stenosis. Right lower extremity warmth to touch, pedal pulses faint and otherwise dopplerable. Good sensation, week due to prior CVA. Good capillary refill. Administer vancomycin, cefepime, metronidazole, Diflucan. Blood culture and urine cultures obtained. 03/09: Pt resting comfortably in bed upon my arrival, RN Pedro at the bedside. Updated her on the plan for HD later today as well as the new plan for outpatient vascular follow-up, see below. Called pt's daughter, Gwen, and updated her on the plans. Review of Systems Review of Systems: All systems reviewed & are unremarkable except as noted in HPI and below (Subjective) ROS unobtainable: Yes unobtainable due to medical condition (expressive aphasia) Exam Const: General: comfortable and no acute distress Other: Alert, expressive aphasia HENMT: Face/Nose/Sinus: Normal nares present Mouth: Yes moist mucous membranes Eyes: Pupils: Equal, round and reactive pupils present Neck: Neck: supple Resp: Effort & Inspection: normal respiratory effort Auscultation: clear to auscultation bilaterally Cardio: Rate: regular rate Rhythm: regular rhythm Heart sounds: no murmurs GI: Inspection: non-distended : Other: See skin Urinary Catheter: Urinary Catheter: patent and draining and urine clear Skin: Other: Erythema under pannus as well as bilateral inguinal folds, TTP but blanchable. Fungal powder in place. Neuro: Cranial nerves: Yes Equal, round and reactive pupils present Extrem: General: edema Other: RLE: Scattered scratches with small scabbings. No open wound. Circumferential erythema and mild edema. TTP. Restless legs with exam. Dopplerable DP & PT pulses on R, sites marked with X Posterior leg right above Achilles: Healing scab, approx 4x5cm R second toe: healing scab, approx 2x2cm Psych: Affect: normal affect Objective Data Vital Signs Vital Signs: Vital Signs - 24 hr 03/08/25 12:09 03/08/25 12:16 03/08/25 12:17 Temperature 98.6 F Pulse Rate 64 64 64 Respiratory Rate 16 Blood Pressure 130/52 L Pulse Oximetry 94 Oxygen Delivery Fraction of Inspired Oxygen 03/08/25 16:00 03/08/25 18:15 03/08/25 20:22 Temperature 98.5 F Pulse Rate 66 Respiratory Rate 17 Blood Pressure 141/58 H 145/58 H Pulse Oximetry 97 97 Oxygen Delivery Room Air Fraction of Inspired Oxygen 21 03/08/25 21:13 03/09/25 01:34 03/09/25 05:09 Temperature 97.7 F 97.7 F 97.5 F L Pulse Rate 57 L 62 61 Respiratory Rate 16 16 14 Blood Pressure 150/54 H 145/74 H 135/73 Pulse Oximetry 98 99 93 Oxygen Delivery Fraction of Inspired Oxygen 03/09/25 07:50 03/09/25 08:00 03/09/25 08:20 Temperature 97.8 F Pulse Rate 63 84 Respiratory Rate 18 15 Blood Pressure 133/53 L Pulse Oximetry 100 Oxygen Delivery Room Air Fraction of Inspired Oxygen 03/09/25 09:32 03/09/25 09:38 03/09/25 09:38 Temperature 97.8 F Pulse Rate 69 68 68 Respiratory Rate 16 16 Blood Pressure 177/54 H Pulse Oximetry 95 95 Oxygen Delivery Room Air Fraction of Inspired Oxygen 21 Intake/Output Intake/Output: Intake & Output 03/06/25 03/07/25 03/08/25 03/09/25 23:59 23:59 22:59 23:59 Intake Total 1150 1200 170 Output Total 75 100 100 Balance 1075 1100 70 Meds/Results Medications: Active Medications Generic Name Dose Route Start Last Admin Trade Name Freq PRN Reason Stop Dose Admin Acetaminophen 650 mg 03/08/25 04:58 03/08/25 12:17 Acetaminophen 325 Mg Tablet PO 650 mg Q4H PRN Administration Mild Pain (1-3) or Fever Albuterol 2.5 mg 03/08/25 09:32 Albuterol Sulfate Neb 2.5 Mg/3 Ml Inh INHALATION Q4-6H PRN Shortness Of Breath Or Wheezing Amiodarone HCl 200 mg 03/08/25 09:35 03/09/25 09:38 Amiodarone Hcl 200 Mg Tablet PO 200 mg QAM ALINA Administration Apixaban 2.5 mg 03/08/25 09:35 03/09/25 09:38 Apixaban 2.5 Mg Tablet PO 2.5 mg BID ALINA Administration Atorvastatin Calcium 20 mg 03/08/25 21:00 03/08/25 20:54 Atorvastatin 20 Mg Tablet PO 20 mg HS ALINA Administration Cholestyramine Resin 4 gm 03/08/25 17:00 03/09/25 09:38 Cholestyramine Light 4 Gm Powd.Pack PO 4 gm BIDWM ALINA Administration Dextrose 12.5 gm 03/08/25 05:58 Dextrose 50% 25 Gm/50 Ml Syringe IV PUSH PRN PRN Hypoglycemia Protocol Epoetin Jorge Alberto-epbx 10,000 units 03/09/25 17:45 Epoetin Jorge Alberto-Epbx 10,000 Units/Ml Vial IV PUSH 03/09/25 17:46 ONCE ONE Escitalopram Oxalate 5 mg 03/08/25 09:35 03/09/25 09:38 Escitalopram Oxalate 5 Mg Tablet PO 5 mg DAILY ALINA Administration Fluticasone Propionate 2 spray 03/08/25 09:32 Fluticasone Propionate 0.05% Na Spr 16 Gm Btl (*Bkc) NASAL DAILY PRN Nasal Congestion Glucose 15 gm 03/08/25 05:58 Glucose Oral Gel 15 Gm Of Glucse In 37.5 Gm Tube PO PRN PRN Hypoglycemia Protocol Hydralazine HCl 25 mg 03/08/25 09:35 03/08/25 18:08 Hydralazine Hcl 25 Mg Tablet PO 25 mg TID ALINA Administration Dextrose 1,000 mls @ 100 mls/hr 03/08/25 05:58 Dextrose 5% 1,000 Ml IVPB PRN PRN Hypoglycemia Protocol Cefepime HCl 500 mg in 50 mls @ 100 mls/hr 03/08/25 21:00 03/08/25 20:54 Maxipime 500 Mg/Ns 50 Ml IVPB 100 mls/hr Q24H ALINA Administration Albumin Human 50 mls @ 999 mls/hr 03/08/25 16:36 Albutein IVPB 04/07/25 16:35 Q10M PRN HYPOTENSION Vancomycin HCl 1,000 mg/ 250 mls @ 250 mls/hr 03/09/25 18:00 Sodium Chloride IVPB 03/09/25 18:59 ONCE ONE Insulin Aspart 2 - 5 units 03/08/25 08:00 03/09/25 09:37 Insulin Aspart (*Bkc) 100 Units/Ml SUB-Q Not Given TIDWM ALINA Protocol Insulin Aspart 1 - 2 units 03/08/25 21:00 03/08/25 21:09 Insulin Aspart (*Bkc) 100 Units/Ml SUB-Q Not Given HS ALINA Protocol Isosorbide Mononitrate 30 mg 03/08/25 09:35 03/08/25 12:16 Isosorbide Mononitrate 30 Mg Tab.Er.24h PO 30 mg DAILY ALINA Administration Levothyroxine Sodium 100 mcg 03/09/25 06:30 03/09/25 06:42 Levothyroxine Sodium 100 Mcg Tablet PO 100 mcg DAILY@0630 ALINA Administration Levothyroxine Sodium 75 mcg 03/09/25 06:30 03/09/25 06:42 Levothyroxine Sodium 75 Mcg Tablet PO 75 mcg DAILY@0630 ALINA Administration Lidocaine/Prilocaine 1 each 03/08/25 16:37 Lidocaine/Prilocaine Cream 2.5-2.5% Tube TOPICAL WITH DIALYSIS PRN for dialysis Protocol Lorazepam 0.5 mg 03/08/25 09:32 Lorazepam (*Crx) 0.5 Mg Tablet PO BID PRN Anxiety Metoprolol Succinate 50 mg 03/08/25 09:35 03/08/25 12:17 Metoprolol Succinate Ext Rel 50 Mg Tabcr PO 50 mg QAM ALINA Administration Montelukast Sodium 10 mg 03/08/25 09:35 03/09/25 09:37 Montelukast Sodium 10 Mg Tablet PO 10 mg DAILY ALINA Administration Ondansetron HCl 4 mg 03/08/25 04:58 Ondansetron Inj 4 Mg/2 Ml Vial IV PUSH Q4H PRN Nausea Ropinirole HCl 0.5 mg 03/08/25 09:45 03/09/25 09:38 Ropinirole Hcl 0.5 Mg Tablet PO 0.5 mg Q12HR ALINA Administration Fluticasone/Salmeterol 2 puff 03/08/25 20:00 03/09/25 07:49 Fluticasone/Salmeterol 115-21 Mcg Inhaler 1 Puff INHALATION 2 puff Q12HRT ALINA Administration Trazodone HCl 50 mg 03/08/25 21:00 03/08/25 20:54 Trazodone Hcl 50 Mg Tablet PO 50 mg QHS ALINA Administration Vancomycin HCl 1 each 03/07/25 23:17 Vancomycin For Hemodialysis IVPB PRN PRN Vancomycin Protocol Radiology Results: ITS Impressions Lower Extremity CT 03/08/25 14:28 IMPRESSION: 1. Severe cellulitis with mild probable myositis. No abscess is identified. 2. Severe atherosclerotic changes with critical stenoses detailed above. CTA suggested Chest X-Ray 03/08/25 18:00 Impression: CHF Lower Extremity CTA 03/08/25 19:17 IMPRESSION: Severe atherosclerotic changes detailed above with critical stenosis of the junction of the superficial femoral and femoral arteries detailed. Conventional angiogram is recommended Labs Labs: Laboratory Results - last 24 hr 03/08/25 03/08/25 03/08/25 12:20 13:30 17:04 WBC RBC Hgb Hct MCV MCH MCHC RDW Plt Count MPV Immature Gran % (Auto) Neut % (Auto) Lymph % (Auto) [place] % (Auto) Eos % (Auto) Baso % (Auto) Lymph # (Auto) [place] # (Auto) Eos # (Auto) Baso # (Auto) Abs Immat Gran (auto) Absolute Neuts (auto) Absolute Nucleated RBC Nucleated RBC % Sodium Potassium Chloride Carbon Dioxide Anion Gap BUN Creatinine Estim Creat Clear Calc Estimated GFR Glucose POC Capillary Glucose 284 H 211 H Calcium Phosphorus Total Bilirubin AST ALT Alkaline Phosphatase Total Protein Albumin Nasal MRSA (PCR) Not detected Random Vancomycin Hep Bs Antigen Hep Bs Antibody 03/08/25 03/09/25 03/09/25 21:00 04:57 07:42 WBC 7.4 RBC 3.24 L Hgb 8.7 L Hct 29.0 L MCV 89.5 MCH 26.9 MCHC 30.0 L RDW 18.0 H Plt Count 200 MPV 10.0 Immature Gran % (Auto) 0.3 Neut % (Auto) 67.3 Lymph % (Auto) 16.2 L [place] % (Auto) 11.2 H Eos % (Auto) 4.2 Baso % (Auto) 0.8 Lymph # (Auto) 1.20 [place] # (Auto) 0.8 H Eos # (Auto) 0.3 Baso # (Auto) 0.1 Abs Immat Gran (auto) 0.02 Absolute Neuts (auto) 5.0 Absolute Nucleated RBC 0.000 Nucleated RBC % 0.0 Sodium 133 L Potassium 4.4 Chloride 93 L Carbon Dioxide 28 Anion Gap 12 BUN 47 H Creatinine 6.33 H Estim Creat Clear Calc 8 Estimated GFR 6 L Glucose 143 H POC Capillary Glucose 187 H 153 H Calcium 8.0 L Phosphorus 5.4 H Total Bilirubin 0.6 AST 25 ALT 15 Alkaline Phosphatase 104 Total Protein 6.6 Albumin 3.3 L Nasal MRSA (PCR) Random Vancomycin 14.0 Hep Bs Antigen Negative Hep Bs Antibody Negative Quality VTE Prophylaxis VTE prophylaxis: pharmacologic ordered
[2025-03-09] MEDS: ACETAMINOPHEN 325 MG TABLET 650 MG PO ×2 (11:23→20:23)
--- NOTE | 2025-03-09 15:01 | P.PNNP_ITS ---
Progress Note: A&P Assessment and Plan (1) End stage renal disease: Code(s): N18.6 - End stage renal disease Status: Chronic Assessment and Plan: * HD today * continue M/W/ outpatient dialysis schedule * follow electrolytes, volume status, and clearance (2) Cellulitis of right leg: Code(s): L03.115 - Cellulitis of right lower limb Status: Acute Assessment and Plan: * as noted by clinical exam * CT findings of RLE noted * follow culture data * on antibiotics (3) UTI (urinary tract infection): Code(s): N39.0 - Urinary tract infection, site not specified Status: Acute Assessment and Plan: * admission UA highly suggestive * follow culture data * on antibiotics (4) Anemia: Code(s): D64.9 - Anemia, unspecified Status: Chronic Assessment and Plan: * due to ESRD * RADHA/Epogen with HD * follow trend of H/H (5) Hypertension: Qualifiers: Hypertension type: unspecified Qualified Code(s): I10 - Essential (primary) hypertension Code(s): I10 - Essential (primary) hypertension Status: Chronic Assessment and Plan: * reasonable control * resume home BP medications * follow trend of hemodynamics (6) Type 2 diabetes mellitus with hyperglycemia: Qualifiers: 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 L Subjective Date/time seen: 03/09/25 15:01 Interval history: Follow-up for end stage renal disease on hemodialysis. Tolerating dialysis treatment at the time of my visit (seen on HD at 2:50pm); resting comfortably when seen -- no apparent distress noted; no other issues/events overnight or earlier this morning; communication limited by expressive aphasia. Exam 2 Narrative: General: elderly but WD/WN female in NAD Heart: normal S1 and S2; no rub Lungs: clear anteriorly; decreased at bases Abdomen: soft, nontender, nondistended, positive bowel sounds Extremities: no cyanosis or clubbing; trace edema Skin: RLE erythema and edema noted Objective Data Vital Signs Vital Signs: Vital Signs Temp Pulse Resp BP Pulse Ox O2 Del Method FiO2 03/09/25 15:00 54 L 164/66 H 03/09/25 14:45 55 L 173/65 H 03/09/25 14:30 56 L 169/69 H 03/09/25 14:14 57 L 151/65 H 03/09/25 14:05 98.1 F 57 L 16 169/81 H 95 03/09/25 11:15 Room Air 03/09/25 09:38 68 16 95 Room Air 21 03/09/25 09:38 68 03/09/25 09:32 97.8 F 69 16 177/54 H 95 03/09/25 08:20 Room Air 03/09/25 08:00 97.8 F 84 15 133/53 L 100 03/09/25 07:50 63 18 03/09/25 05:09 97.5 F L 61 14 135/73 93 03/09/25 01:34 97.7 F 62 16 145/74 H 99 03/08/25 21:13 97.7 F 57 L 16 150/54 H 98 03/08/25 20:22 97 Room Air 21 Intake/Output Intake/Output: Intake & Output 03/06/25 03/07/25 03/08/25 03/09/25 23:59 23:59 22:59 23:59 Intake Total 1150 1200 410 Output Total 75 100 2600 Balance 1075 1100 -2190 Meds/Results Medications: Active Medications Generic Name Dose Route Start Last Admin Trade Name Freq PRN Reason Stop Dose Admin Acetaminophen 650 mg 03/08/25 04:58 03/09/25 11:23 Acetaminophen 325 Mg Tablet PO 650 mg Q4H PRN Administration Mild Pain (1-3) or Fever Albuterol 2.5 mg 03/08/25 09:32 Albuterol Sulfate Neb 2.5 Mg/3 Ml Inh INHALATION Q4-6H PRN Shortness Of Breath Or Wheezing Amiodarone HCl 200 mg 03/08/25 09:35 03/09/25 09:38 Amiodarone Hcl 200 Mg Tablet PO 200 mg QAM ALINA Administration Amoxicillin/Clavulanate Potassium 1 tablet 03/09/25 21:00 Amoxicillin/Clavulanate K 500-125 Mg Tab PO 03/13/25 21:01 QHS ALINA Apixaban 2.5 mg 03/08/25 09:35 03/09/25 09:38 Apixaban 2.5 Mg Tablet PO 2.5 mg BID ALINA Administration Atorvastatin Calcium 20 mg 03/08/25 21:00 03/08/25 20:54 Atorvastatin 20 Mg Tablet PO 20 mg HS ALINA Administration Cholestyramine Resin 4 gm 03/08/25 17:00 03/09/25 09:38 Cholestyramine Light 4 Gm Powd.Pack PO 4 gm BIDWM ALINA Administration Dextrose 12.5 gm 03/08/25 05:58 Dextrose 50% 25 Gm/50 Ml Syringe IV PUSH PRN PRN Hypoglycemia Protocol Escitalopram Oxalate 5 mg 03/08/25 09:35 03/09/25 09:38 Escitalopram Oxalate 5 Mg Tablet PO 5 mg DAILY ALINA Administration Fluticasone Propionate 2 spray 03/08/25 09:32 Fluticasone Propionate 0.05% Na Spr 16 Gm Btl (*Bkc) NASAL DAILY PRN Nasal Congestion Glucose 15 gm 03/08/25 05:58 Glucose Oral Gel 15 Gm Of Glucse In 37.5 Gm Tube PO PRN PRN Hypoglycemia Protocol Hydralazine HCl 25 mg 03/08/25 09:35 03/09/25 14:35 Hydralazine Hcl 25 Mg Tablet PO Not Given TID ALINA Dextrose 1,000 mls @ 100 mls/hr 03/08/25 05:58 Dextrose 5% 1,000 Ml IVPB PRN PRN Hypoglycemia Protocol Albumin Human 50 mls @ 999 mls/hr 03/08/25 16:36 Albutein IVPB 04/07/25 16:35 Q10M PRN HYPOTENSION Insulin Aspart 2 - 5 units 03/08/25 08:00 03/09/25 11:44 Insulin Aspart (*Bkc) 100 Units/Ml SUB-Q Not Given TIDWM [facility] Protocol Insulin Aspart 1 - 2 units 03/08/25 21:00 03/08/25 21:09 Insulin Aspart (*Bkc) 100 Units/Ml SUB-Q Not Given HS [facility] Protocol Isosorbide Mononitrate 30 mg 03/08/25 09:35 03/08/25 12:16 Isosorbide Mononitrate 30 Mg Tab.Er.24h PO 30 mg DAILY ALINA Administration Levothyroxine Sodium 100 mcg 03/09/25 06:30 03/09/25 06:42 Levothyroxine Sodium 100 Mcg Tablet PO 100 mcg DAILY@0630 ALINA Administration Levothyroxine Sodium 75 mcg 03/09/25 06:30 03/09/25 06:42 Levothyroxine Sodium 75 Mcg Tablet PO 75 mcg DAILY@0630 ALINA Administration Lidocaine/Prilocaine 1 each 03/08/25 16:37 Lidocaine/Prilocaine Cream 2.5-2.5% Tube TOPICAL WITH DIALYSIS PRN for dialysis Protocol Lorazepam 0.5 mg 03/08/25 09:32 Lorazepam (*Crx) 0.5 Mg Tablet PO BID PRN Anxiety Metoprolol Succinate 50 mg 03/08/25 09:35 03/08/25 12:17 Metoprolol Succinate Ext Rel 50 Mg Tabcr PO 50 mg QAM ALINA Administration Montelukast Sodium 10 mg 03/08/25 09:35 03/09/25 09:37 Montelukast Sodium 10 Mg Tablet PO 10 mg DAILY ALINA Administration Ondansetron HCl 4 mg 03/08/25 04:58 Ondansetron Inj 4 Mg/2 Ml Vial IV PUSH Q4H PRN Nausea Ropinirole HCl 0.5 mg 03/08/25 09:45 03/09/25 09:38 Ropinirole Hcl 0.5 Mg Tablet PO 0.5 mg Q12HR ALINA Administration Fluticasone/Salmeterol 2 puff 03/08/25 20:00 03/09/25 07:49 Fluticasone/Salmeterol 115-21 Mcg Inhaler 1 Puff INHALATION 2 puff Q12HRT ALINA Administration Trazodone HCl 50 mg 03/08/25 21:00 03/08/25 20:54 Trazodone Hcl 50 Mg Tablet PO 50 mg QHS ALINA Administration Radiology Results: ITS Impressions Lower Extremity CT 03/08/25 14:28 IMPRESSION: 1. Severe cellulitis with mild probable myositis. No abscess is identified. 2. Severe atherosclerotic changes with critical stenoses detailed above. CTA suggested Chest X-Ray 03/08/25 18:00 Impression: CHF Lower Extremity CTA 03/08/25 19:17 IMPRESSION: Severe atherosclerotic changes detailed above with critical stenosis of the junction of the superficial femoral and femoral arteries detailed. Conventional angiogram is recommended Labs Labs: Laboratory Tests 03/09/25 04:57 03/09/25 04:57 Calcium 8.0 L Phosphorus 5.4 H Total Bilirubin 0.6 AST 25 ALT 15 Alkaline Phosphatase 104 Total Protein 6.6 Albumin 3.3 L Random Vancomycin 14.0 Hep Bs Antigen Negative Hep Bs Antibody Negative Microbiology 03/07/25 21:27 Blood Blood Culture - Preliminary 03/07/25 22:10 Blood Blood Culture - Preliminary
[2025-03-09] MEDS: EPOETIN ALFA-EPBX 10,000 UNITS/ML VIAL 10000 UNITS IV PUSH (15:30)
[2025-03-09] MEDS: ISOSORBIDE MONONITRATE 30 MG TAB.ER.24H PO (18:39)
[2025-03-09] MEDS: METOPROLOL SUCCINATE EXT REL 50 MG TABCR PO (18:39)
[2025-03-09] MEDS: ATORVASTATIN 20 MG TABLET PO (20:23)
[2025-03-09] MEDS: INSULIN ASPART (*BKC) 100 UNITS/ML SUB-Q (21:12)
[2025-03-10] VITALS (7 sets, daily range): BP systolic 140–148; BP diastolic 50–93; PULSE 56–62; RESP 12–20; TEMP 35.9–36.7; O2SAT 96–100
[2025-03-10 04:48] LABS: Hematocrit 27.7 % (37.0-47.0); Hemoglobin 8.3 g/dL (12.0-15.0); Immature Granulocyte Percent A 0.5 % (0-0.5); Lymphocytes Absolute Auto 0.99 K/mm3 (0.9-3.2); Mean Corpuscular HGB Conc 30.0 g/dl (32-36); Mean Corpuscular Hemoglobin 26.8 pg (26-34); Mean Corpuscular Volume 89.4 fl (80-100); Nucleated Red Blood Cells Absolute Auto 0.000 K/mm3 (0.0-0.012); Nucleated Red Blood Cells Perc 0.0 % (0.0-0.2); Platelet Count Result 201 k/mm3 (150-375); Red Blood Count 3.10 M/mm3 (4.2-5.4); White Blood Count 6.1 K/mm3 (4.5-10.0)
[2025-03-10 05:12] LABS: Alanine Aminotransferase 19 U/L (6-35); Albumin Level 3.3 g/dL (3.5-5.1); Alkaline Phosphatase 98 U/L (38-126); Anion Gap 10 mmol/L (4-12); Aspartate Amino Transferase 23 U/L (14-36); Bilirubin,Total 0.6 mg/dL (0.2-1.3); Blood Urea Nitrogen 26 mg/dL (7-17); Calcium 8.1 mg/dL (8.4-10.2); Carbon Dioxide 25 mmol/L (22-30); Chloride 99 mmol/L (98-107); Estimated CRCL calculation 11 ml/min; Estimated Glomerular Filt Rate 10; Glucose 222 mg/dL (65-110); Potassium 4.1 mmol/L (3.4-5.0); Sodium 134 mmol/L (137-145); Total Protein 6.6 g/dL (6.3-8.2)
[2025-03-10] MEDS: LEVOTHYROXINE SODIUM 100 MCG TABLET PO (05:41)
[2025-03-10] MEDS: LEVOTHYROXINE SODIUM 75 MCG TABLET PO (05:41)
--- NOTE | 2025-03-10 08:04 | P.DS_ITS ---
DS: Admitting Diagnosis Discharge Date 03/10/2025 Admitting Diagnosis Cellulitis, UTI DS: Discharge Diagnosis Discharge Diagnosis (1) Acute UTI: Code(s): N39.0 - Urinary tract infection, site not specified Status: Acute Assessment and Plan: ED UA: Turbid, 3+ blood, 3+ leuks, WBC >100, 4+ bacteria 03/08: Unable to communicate to me if symptomatic, no TTP suprapubic abd -Pending UC -Continue cefepime with pharm help for dosing due to HD (e. coli UTI in Jan 2025) 03/09: Unable to communicate to me if symptomatic, no TTP suprapubic abd -Pending UC -Switching abx to Augmentin PO (pharm to dose, 500mg daily with HD). -D/C stokes catheter today 03/10: Unable to communicate to me if symptomatic, no TTP suprapubic abd -Pending UC -Continue Augmentin PO (pharm to dose, 500mg daily with HD) upon discharge (2) Cellulitis of right leg: Code(s): L03.115 - Cellulitis of right lower limb Status: Acute Assessment and Plan: Continue vancomycin. Monitor for improvement. Follow-up urine and blood cultures. Good perfusion, neurovascular exam intact. Advised follow-up with vascular surgery. 03/08: -BC pending -Dopplerable pulses -Continue vanc with help from pharm with dosing due to HD 03/09: Cellulitis ruled out. See below. -CTA performed due to CT recs. CTA recs for conventional angiogram due to Severe atherosclerotic changes...with critical stenosis of the junction of the superficial femoral and femoral arteries detailed -Lower extremities not performed at this location. Spoke to and updated pt and her daughter, Gwen, and they preference would be [facility] if transfer would be needed. Spoke to [facility] transfer center and got in touch with a vascular physician that stated if limb ischemia was not an acute risk, they pt can be seen as an outpt f/u with [facility] vascularity at [phone]. Pt and daughter agreeable with this plan. Limb is not at acute risk for ischemia. Limb pulse continue to be dopplerable. (3) End stage renal disease: Code(s): N18.6 - End stage renal disease Status: Chronic Assessment and Plan: Nephrology consultation for inpatient dialysis. Pt HD schedule MWF 03/09: HD to be performed today (4) Type 2 diabetes mellitus with hyperglycemia: Qualifiers: Diabetes mellitus half-way insulin use: with half-way use Qualified Code(s): E11.65 - Type 2 diabetes mellitus with hyperglycemia; Z79.4 - FCI (current) use of insulin Code(s): E11.65 - Type 2 diabetes mellitus with hyperglycemia Status: Chronic Assessment and Plan: Accu-Cheks a.c. HS with low-dose insulin sliding scale. 03/08: FBS 131 A1C 6.5 03/09: FBS 143 03/10: FBS 222 (5) Atrial fibrillation: Code(s): I48.91 - Unspecified atrial fibrillation Status: Chronic Assessment and Plan: Currently normal sinus rhythm via ED EKG. Continue DIGESTER HAND apixaban, amiodarone, metoprolol. (6) Asthma-COPD overlap syndrome: Code(s): J44.9 - Chronic obstructive pulmonary disease, unspecified Status: Acute Assessment and Plan: Continue home meds once med rec completed (7) ARACELY (generalized anxiety disorder): Code(s): F41.1 - Generalized anxiety disorder Status: Acute Assessment and Plan: Continue Lexapro and Ativan once med rec completed (8) Femoral artery stenosis, right: Code(s): I70.201 - Unspecified atherosclerosis of picayune arteries of extremities, right leg Status: Acute Assessment and Plan: -CTA performed due to CT recs. CTA recs for conventional angiogram due to Severe atherosclerotic changes...with critical stenosis of the junction of the superficial femoral and femoral arteries detailed -Lower extremities not performed at this location. Spoke to and updated pt and her daughter, Gwen, and they preference would be [facility] if transfer would be needed. Spoke to [facility] transfer center and got in touch with a vascular physician that stated if limb ischemia was not an acute risk, they pt can be seen as an outpt f/u with [facility] vascularity at [phone]. Pt and daughter agreeable with this plan. Limb is not at acute risk for ischemia. Limb pulse continue to be dopplerable. Plan Pt to discharge home today with daughter, Gwen, with plans for a vascular f/u sergio. DS: Summary Hospital Course Reason for hospitalization: Cellulitis, UTI Hospital Course: ED: 74-year-old female to urgent care by her for right leg redness, urgent care referred patient to [facility] on 03/07/2025. She has a PMH of diabetes mellitus, neuropathy, ESRD on dialysis MWF followed by Dr. 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 noticed open wound on the back of her ankle and redness which has become progressively worse with some swelling. ER evaluation demonstrates erythema, mild edema surrounding the ulcer above her calcaneus on the right foot in a circumferential fashion. No active purulence. Urinalysis with 4+ bacteria, wbc's, few squamous cells, leukocyte esterase positive, nitrite negative. CT right lower extremity with contrast demonstrating diffuse soft tissue edema, no fluid collection, multi vessel stenosis. Right lower extremity warmth to touch, pedal pulses faint and otherwise dopplerable. Good sensation, week due to prior CVA. Good capillary refill. Administer vancomycin, cefepime, metronidazole, Diflucan. Blood culture and urine cultures obtained. In hospital evaluation: CT of RLE read resulted in the evening of 02/05 with the following: '1. Severe cellulitis with mild probable myositis. No abscess is identified. 2. Severe atherosclerotic changes with critical stenoses detailed above. CTA suggested' CTA of RLE was then ordered (proceeded to obtain evening of the 03/08 due to plan for dialysis tomorrow) with the following results: 'Severe atherosclerotic changes detailed above with critical stenosis of the junction of the superficial femoral and femoral arteries detailed. Conventional angiogram is recommended' Lower extremity angiograms are not performed at this hospital. Spoke to and updated pt and her daughter, Gwen, and they preference would be [facility] if transfer would be needed. Spoke to [facility] transfer center and got in touch with a vascular physician that stated if limb ischemia was not an acute risk, they pt can be seen as an outpt f/u with [facility] vascularity at [phone]. Limb is not at acute risk for ischemia. Limb pulse continued to be dopplerable throughout day of discharge. Cellulitis at this time was ruled out and all abx stopped. Per was dialyzed on 03/09 for a full course. Pt was hemodynamically stable and her labs (aside from her chronic kidney failure labs) all remained stable during the course of her hospitalization. Pt was also treated for a UTI while inpatient and continued PO Augmentin upon her discharge(renally dosed). Pt with positive e. coli UTI in Jan 2025, she was treated with cefepime IV while inpt this admission before being switched to PO Augmentin. The patient was a modified code: no intubation during the admission. She is discharged to home today with care supported by her and daughter Gwen. Discussion held with them and they were advised to follow-up with PCP and vascular surgery clinic sergio, to which they understand and agree. All their questions and concerns were answered to satisfaction. Status at Discharge Overall status at discharge: patient is progressing back to baseline Time Spent with Patient Time attestation: Total time spent providing and/or coordinating discharge services: 45 Exam Const: General: comfortable and no acute distress Other: Alert, expressive aphasia HENMT: Face/Nose/Sinus: Normal nares present Mouth: Yes moist mucous membranes Eyes: Pupils: Equal, round and reactive pupils present Neck: Neck: supple Resp: Effort & Inspection: normal respiratory effort Auscultation: clear to auscultation bilaterally Cardio: Rate: regular rate Rhythm: regular rhythm Heart sounds: no murmu rs GI: Inspection: non-distended : Other: See skin Urinary Catheter: Urinary Catheter: patent and draining and urine clear Skin: Other: Erythema under pannus as well as bilateral inguinal folds, TTP but blanchable. Fungal powder in place. Neuro: Cranial nerves: Yes Equal, round and reactive pupils present Extrem: General: edema Other: RLE: Scattered scratches with small scabbings. No open wound. Circumferential erythema and mild edema. TTP. Restless legs with exam. Dopplerable DP & PT pulses on R, sites marked with X Posterior leg right above Achilles: Healing scab, approx 4x5cm R second toe: healing scab, approx 2x2cm Psych: Affect: normal affect DS: Data Data Completed and Pending Completed studies during hospitalization: labs, urine, imaging Labs on day of discharge: Labs from last 24 hours 03/10/25 03/10/25 03/09/25 07:31 04:39 20:33 WBC 6.1 RBC 3.10 L Hgb 8.3 L Hct 27.7 L MCV 89.4 MCH 26.8 MCHC 30.0 L RDW 18.1 H Plt Count 201 MPV 10.3 Immature Gran % (Auto) 0.5 Neut % (Auto) 63.5 Lymph % (Auto) 16.3 L [place] % (Auto) 13.3 H Eos % (Auto) 5.4 H Baso % (Auto) 1.0 Lymph # (Auto) 0.99 [place] # (Auto) 0.8 H Eos # (Auto) 0.3 Baso # (Auto) 0.1 Abs Immat Gran (auto) 0.03 Absolute Neuts (auto) 3.9 Absolute Nucleated RBC 0.000 Nucleated RBC % 0.0 Sodium 134 L Potassium 4.1 Chloride 99 Carbon Dioxide 25 Anion Gap 10 BUN 26 H D Creatinine 4.38 H Estim Creat Clear Calc 11 Estimated GFR 10 L Glucose 222 H POC Capillary Glucose 244 H 224 H Calcium 8.1 L Phosphorus 4.0 Total Bilirubin 0.6 AST 23 ALT 19 Alkaline Phosphatase 98 Total Protein 6.6 Albumin 3.3 L 03/09/25 03/09/25 18:46 11:33 WBC RBC Hgb Hct MCV MCH MCHC RDW Plt Count MPV Immature Gran % (Auto) Neut % (Auto) Lymph % (Auto) [place] % (Auto) Eos % (Auto) Baso % (Auto) Lymph # (Auto) [place] # (Auto) Eos # (Auto) Baso # (Auto) Abs Immat Gran (auto) Absolute Neuts (auto) Absolute Nucleated RBC Nucleated RBC % Sodium Potassium Chloride Carbon Dioxide Anion Gap BUN Creatinine Estim Creat Clear Calc Estimated GFR Glucose POC Capillary Glucose 167 H 194 H Calcium Phosphorus Total Bilirubin AST ALT Alkaline Phosphatase Total Protein Albumin Preliminary micro results at discharge 03/07/25 21:27 Blood Culture - Preliminary Blood 03/07/25 22:10 Blood Culture - Preliminary Blood Discharge Plan Discharge Attending physician on discharge: Samantha Avery Consulting providers: Millicent Covington; Dmias Rios Discharging Clinician: Millicent Covington Anticipated Discharge Date/Time: 03/10/25 13:00 Patient Disposition: Home Activity: as tolerated Diet: renal Discharge Instructions: 1. Plan to follow-up with the vascular team for your leg. Your daughter has communicated to me that there is an [facility] group that you as established at that you will be able to seen in. 2. Continue your medication as prescribed as well as your dialysis schedule. 3. I am sending you home with an antibiotic called Augmentin to treat your urinary tract infection. You will take this medication at night for 4 more nights. Continue to check your blood pressure and blood sugar at home if applicable. Keep your scheduled appts with your primary care provider and any specialist that you may see. Return to the emergency department if you develop sudden shortness of breath, chest pain, a fever of greater than 101.5, or nausea, vomiting, abd pain, or diarrhea that does not go away. Follow-up with your primary care provider within 1-2 weeks, they will want to be updated on your inpatient stay in the hospital. Thank you for choosing [facility] for your healthcare needs. Patient Instructions: Antibiotic Form, Apixaban (By mouth), Heart Failure (ED), Peripheral Vascular Angioplasty (DC), Peripheral Vascular Angioplasty (GEN) Patient Language: Other Stand Alone Forms: General Discharge Information Follow-up/Referrals: Rikki Amezquita MD [Primary Care Provider, Family Practice] - 2 Weeks Discharge Medications: New amoxicillin-pot clavulanate [Augmentin] 500-125 mg Tablet 1 tablet PO QHS Qty: 4 0RF Continued insulin aspart U-100 [Novolog FlexPen U-100 Insulin] 100 unit/mL (3 mL) insulin pen See Rx Instructions .ROUTE .COMPLEX MDD 60 Rx Instructions: sliding scale albuterol sulfate [Ventolin HFA] 90 mcg/actuation HFA aerosol inhaler See Rx Instructions .ROUTE .COMPLEX Qty: 18 6RF Dose Instruction: INHALE 2 PUFFS BY MOUTH 4 TIMES DAILY NEEDED FOR SHORTNESS OF BREATH OR WHEEZING. Rx Instructions: INHALE 2 PUFFS BY MOUTH 4 TIMES DAILY NEEDED FOR SHORTNESS OF BREATH OR WHEEZING. metoprolol succinate 50 mg tablet extended release 24 hr 50 mg PO QAM Qty: 90 0RF montelukast 10 mg tablet 10 mg PO DAILY Qty: 90 3RF escitalopram oxalate [Lexapro] 5 mg tablet 5 mg PO DAILY Qty: 90 4RF amiodarone 200 mg tablet 200 mg PO QAM ropinirole 2 mg tablet 0.5 mg PO Q12H insulin glargine [Lantus Solostar U-100 Insulin] 100 unit/mL (3 mL) insulin pen 18 unit subcut QPM Rx Instructions: INJECT 18 UNITS UNDER THE SKIN AT BEDTIME Eliquis 2.5 mg tablet 2.5 mg PO BID albuterol sulfate 2.5 mg /3 mL (0.083 %) solution for nebulization 2.5 mg inhalation Q4-6H PRN (Reason: shortness of breath or wheezing) Qty: 90 6RF budesonide-formoterol 160-4.5 mcg/actuation HFA aerosol inhaler 2 puff inhalation Q12H Qty: 10.2 6RF fluticasone propionate 50 mcg/actuation spray,suspension 2 spray intranasal DAILY PRN (Reason: nasal congestion) Qty: 16 2RF trazodone 50 mg tablet 50 mg PO QHS Qty: 30 5RF atorvastatin [Lipitor] 20 mg tablet 20 mg PO HS Qty: 90 1RF hydralazine 25 mg tablet 25 mg PO TID Qty: 270 0RF levothyroxine 175 mcg tablet See Rx Instructions .ROUTE .COMPLEX Qty: 90 1RF Dose Instruction: Take 1 tablet by mouth once daily Rx Instructions: Take 1 tablet by mouth once daily Cholestyramine Light 4 gram powder in packet 4 g PO BID Qty: 60 3RF Rx Instructions: administer w/meal; avoid other meds within 1hr before or 4-6hr after dose lorazepam [Ativan] 0.5 mg tablet 0.5 mg PO BID PRN (Reason: anxiety) Qty: 60 0RF isosorbide mononitrate 30 mg tablet extended release 24 hr 30 mg PO DAILY Qty: 90 0RF Date of admission: 03/08/25 07:29 Primary Care Provider: Rikki Amezquita Admitting Provider: Pamela Burch Attending physician on admission: Pamela Burch Condition: Stable Quality VTE Prophylaxis VTE prophylaxis: pharmacologic ordered Hospitalist MIPS Heart Failure (Exclusion) Patient has history of Heart Transplant or Left Ventricular Assistive Device?: No IF YES, STOP HERE Heart Failure (Qualifier) Patient has current or prior documentation of LVEF less than or equal to 40%, or mod/servere depressed LVSF?: No IF NO, STOP HERE
[2025-03-10] MEDS: METOPROLOL SUCCINATE EXT REL 50 MG TABCR PO (08:16)
[2025-03-10] MEDS: FLUTICASONE/SALMETEROL 115-21 MCG INHALER 1 PUFF 2 PUFF INHALATION (08:25)
[2025-03-10] MEDS: ESCITALOPRAM OXALATE 5 MG TABLET PO (08:25)
[2025-03-10] MEDS: AMIODARONE HCL 200 MG TABLET PO (08:25)
[2025-03-10] MEDS: ISOSORBIDE MONONITRATE 30 MG TAB.ER.24H PO (08:25)
[2025-03-10] MEDS: INSULIN ASPART (*BKC) 100 UNITS/ML SUB-Q ×2 (08:25→12:12)
[2025-03-10] MEDS: APIXABAN 2.5 MG TABLET PO (08:25)
[2025-03-10] MEDS: MONTELUKAST SODIUM 10 MG TABLET PO (08:25)
[2025-03-10] MEDS: CHOLESTYRAMINE LIGHT 4 GM POWD.PACK PO (09:57)
--- NOTE | 2025-03-10 13:11 | PC.NURSE ---
On 03/10/25, the student, [Pamela Moya], provided care and completed [facility] documentation on this patient. I have reviewed the student's documentation and agree with the findings.
== END 2025-03-10 12:22 | disposition home or self-care (01) | DRG 299 ==
LOC: ANHED 03-08 05:03 → ANH2MED 03-08 05:25
PROVIDERS: Internal Medicine Nephrology; Admitting Provider General Practice; Emergency Provider Registered Nurse; PCP Family Medicine; Visit Provider Student in an Organized Health Care Education/Training Program
DX: I70.201 Unspecified atherosclerosis of native arteries of extremities, right leg (principal); N18.6 End stage renal disease; N39.0 Urinary tract infection, site not specified; I50.32 Chronic diastolic (congestive) heart failure; I69.351 Hemiplegia and hemiparesis following cerebral infarction affecting right dominant side; I13.2 Hypertensive heart and chronic kidney disease with heart failure and with stage 5 chronic kidney disease, or end stage renal disease; B37.31 Acute candidiasis of vulva and vagina; E11.42 Type 2 diabetes mellitus with diabetic polyneuropathy; E11.22 Type 2 diabetes mellitus with diabetic chronic kidney disease; E11.65 Type 2 diabetes mellitus with hyperglycemia; F41.1 Generalized anxiety disorder; G47.33 Obstructive sleep apnea (adult) (pediatric); I25.10 Atherosclerotic heart disease of native coronary artery without angina pectoris; M17.0 Bilateral primary osteoarthritis of knee; E03.9 Hypothyroidism, unspecified; D63.1 Anemia in chronic kidney disease; I48.0 Paroxysmal atrial fibrillation; J44.9 Chronic obstructive pulmonary disease, unspecified; G25.81 Restless legs syndrome; N25.0 Renal osteodystrophy; Z99.2 Dependence on renal dialysis; Z86.718 Personal history of other venous thrombosis and embolism; I69.320 Aphasia following cerebral infarction; I69.398 Other sequelae of cerebral infarction; Z79.01 Long term (current) use of anticoagulants; Z79.4 Long term (current) use of insulin; I69.392 Facial weakness following cerebral infarction; I69.328 Other speech and language deficits following cerebral infarction; Z90.49 Acquired absence of other specified parts of digestive tract; Z87.891 Personal history of nicotine dependence; Z86.16 Personal history of COVID-19
CPT/HCPCS: 36415; 71045; 73590; 73610; 73630; 73701; 73706; 80053; 80202; 81001; 82948; 83036; 83605; 84100; 85025; 85610; 85730; 86140; 86706; 87040; 87086; 87340; 87641; 93005; 94640; 96365; 96367; 97110; 97162; 97166; 97530; 99285; A9270; G0257; G0378; J0692; J1450; J1815; J1836; J3373; J7030; Q5105; Q9967

== ENCOUNTER 2025-03-16 15:57 | Inpatient (IN) | payer MEDICARE, SELFPAY ==
--- OUTSIDE RECORDS SUMMARY | 2010-03-17 09:45 | XMS_ITS | Continuity of Care Document ---
Author Organization [employer] [facility] [place] [address] [place] [address] [place] [phone] Phone Care Team Providers Care Motocross Racer Name Role Phone Mohsen Peña Unavailable Unavailable Procedures Procedure Date Eye Exam & Treatment Injection Eye Drug Kenalog/Triamcinolone Acetonide Inj Ophthalmoscopy, Subsequent Ophthalmoscopy, Subsequent Optic Nerve Topography Optic Nerve Topography Eye Exam Established Pt Ophthalmoscopy, Subsequent Ophthalmoscopy, Subsequent Eye Exam & Treatment Injection Eye Drug Kenalog/Triamcinolone Acetonide Inj Ophthalmoscopy, Subsequent Ophthalmoscopy, Subsequent Optic Nerve Topography Optic Nerve Topography Eye Exam Established Pt Ophthalmoscopy, Subsequent Ophthalmoscopy, Subsequent Injection Eye Drug Kenalog/Triamcinolone Acetonide Inj Eye Exam & Treatment Injection Eye Drug Kenalog/Triamcinolone Acetonide Inj Ophthalmoscopy, Subsequent Ophthalmoscopy, Subsequent Optic Nerve Topography Optic Nerve Topography Treatment Of Retinal Lesion Treatment Of Retinal Lesion Eye Exam Established Pt Ophthalmoscopy, Subsequent Ophthalmoscopy, Subsequent Injection Eye Drug Kenalog/Triamcinolone Acetonide Inj Ophthalmoscopy, Subsequent Injection Eye Drug Office Consultation Kenalog/Triamcinolone Acetonide Inj Ophthalmoscopy Ophthalmoscopy Optic Nerve Topography Optic Nerve Topography Eye Exam & Treatment Eye Exam & Treatment Refraction Dilated Retinal Exam W Interpretation Ju Dilated Macular Or Fundus Exam Findings Communicat Communication Performed No Charge Glasses Check Eye Exam Established Pt Ophthalmoscopy, Subsequent Ophthalmoscopy, Subsequent Treatment Of Retinal Lesion Treatment Of Retinal Lesion Injection Eye Drug Kenalog/Triamcinolone Acetonide Inj Eye Exam & Treatment Ophthalmoscopy, Subsequent Ophthalmoscopy, Subsequent Fluorescein Angiography Fluorescein Angiography Fundus Photography W/ Report Injection Eye Drug Kenalog/Triamcinolone Acetonide Inj Post-op Follow-up Visit Eye Exam Established Pt Ophthalmoscopy, Subsequent Ophthalmoscopy, Subsequent Post-op Follow-up Visit Post-op Follow-up Visit Remove Cataract, Insert Lens Post-op Follow-up Visit [facility] Post-op Follow-up Visit Remove Cataract, Insert Lens Eye Exam Established Pt [facility] Office Consultation Ophthalmoscopy Ophthalmoscopy Eye Exam Established Pt Fundus Photography W/ Report Advance Directives Directive Yes / No Effective Date File Name No Information Encounters Encounter Description Practice Location Reason(s) For Visit Diagnoses Date Provider Providers Copied on Encounter [facility], [id number] [place] [address] [address], [place], [place], [address], [place] tel:[phone] [facility] No Information 1-201 0 Casey Connolly. [address] [place], [address], [place]. tel:[phone] Referring Provider: Mohsen Merlos, [address] [place], [address]. tel:[phone] [facility], [address], [place], [place], [address], [place] tel:[phone] [facility] No Information 8-201 0 Casey Connolly. [address] [place], [address], [place]. tel:[phone] Referring Provider: Mohsen Merlos, [address] [place], [address]. tel:[phone] [facility], [address] [place] [address] [address], [place], [place], [id number], [place] tel:[phone] [facility] No Information 4-201 0 Casey Connolly. [address] [place], [address], [place]. tel:[phone] Referring Provider: Mohsen Merlos, [address] [place], [address]. tel:[phone] [facility], [address], [place], [place], [address], [place] tel:[phone] [facility] No Information September-0 3-201 0 Casey Connolly. [address] [place], [address], [place]. tel:[phone] Referring Provider: Mohsen Merlos, [address] [place], [address]. tel:[phone] [facility], [address] [place] [address] [address], [place], [place], [address], [place] tel:[phone] [facility] No Information Jul-0 1-201 0 Casey Connolly. [address] [place], [address], [place]. tel:[phone] Referring Provider: Mohsen Merlos, [address] [place], [address]. tel:[phone] [facility], [address], [place], [place], [address], [place] tel:[phone] [facility] No Information 5-201 0 Casey Connolly. [address] [place], [address], [place]. tel:[phone] Referring Provider: Mohsen Merlos, [address] [place], [place], [facility]. tel:[phone] [facility], [address] [place] [address] [address], [place], [place], [address], [place] tel:[phone] [facility] No Information Sep-1 4-200 9 Casey Connolly. [address] [place], [address], [place]. tel:[phone] Referring Provider: Mohsen Merlos, [address] [place], [address]. tel:[phone] [facility], [address], [place], [place], [address], [place] tel:[phone] [facility] No Information Aug-3 1-200 9 Casey Connolly. [address] [place], [address], [place]. tel:[phone] [facility], [address], [place], [place], [address], [place] tel:[phone] [facility] No Information Aug-2 7-200 9 Casey Connolly. [address] [place], [address], [place]. tel:[phone] [facility], [address], [place], [place], [address], [place] tel:[phone] [facility] No Information 9 Casey Connolly. [address] [place], [address], [place]. tel:[phone] Referring Provider: Mohsen Merlos, [address] [place], [address]. tel:[phone] Office Consultation [facility], [address], [place], [place], [address], [place] tel:[phone] [facility] No Information 9 Casey Connolly. [address] [place], [address], [place]. tel:[phone] Referring Provider: Nataly Summers, [address], [place], [address]. tel:[phone] [facility], [address], [place], [place], [address], [place] tel:[phone] [facility] No Information 0 200 9 Sheri Ingram. [address], [place], [address], [place]. tel:[phone] [facility], [address], [place], [place], [address], [place] tel:[phone] [facility] No Information 8 Sheri Rojas [address], [place], [address], [place]. tel:[phone] [facility], [address], [place], [place], [address], [place] tel:[phone] [facility] [place] [facility] No Information Nov-0 8-200 7 Sheri Noblen. [address], [place], [address], [place]. tel:[phone] [facility], [address], [place], [place], [address], [place] tel:[phone] [facility] No Information Oct-2 5-200 7 Casey Connolly. [address] [place], [address], [place]. tel:[phone] Referring Provider: Mohsen Merlos, [address] [place], [address]. tel:[phone] [facility], [address], [place], [place], [address], [place] tel:[phone] [facility] No Information Sep-2 7-200 7 Casey Connolly. [address] [place], [address], [place]. tel:[phone] [facility], [address], [place], [place], [address], [place] tel:[phone] [facility] No Information Sep-2 4-200 7 Casey Connolly. [address] [place], [address], [place]. tel:[phone] [facility], [address], [place], [place], [address], [place] tel:[phone] [facility] No Information Sep-1 7-200 7 Casey Connolly. [address] [place], [address], [place]. tel:[phone] [facility], [address], [place], [place], [address], [place] tel:[phone] [facility] No Information Sep-1 3-200 7 Casey Connolly. [address] [place], [address], [place]. tel:[phone] Referring Provider: Nataly Summers, [address], [place], [facility]. tel:[phone] [facility], [address], [place], [place], [address], [place] tel:[phone] [facility] No Information Dec- 0-200 7 Sheri Rojas [address], [place], [facility], [place]. tel:[phone] [facility], [address], [place], [place], [address], [place] tel:[phone] [facility] No Information Nov-3 0-200 7 Casey Connolly. [address] [place], [facility], [place]. tel:[phone] [facility], [address], [place], [place], [address], [place] tel:[phone] [facility] No Information Nov-2 0-200 7 Sheri Rojas [address], [place], [facility], [place]. tel:[phone] [facility], [address], [place], [place], [address], [place] tel:[phone] [facility] No Information 2-200 7 Sheri Rojas [address], [place], [facility], [place]. tel:[phone] [facility], [address], [place], [place], [address], [place] tel:[phone] [facility] No Information Nov-1 1-200 7 Sheri Rojas [address], [place], [facility], [place]. tel:[phone] [facility], [address], [place], [place], [address], [place] tel:[phone] [facility] No Information Sam-2 2-200 7 Sheri Ingram. [address], [place], [facility], [place]. tel:[phone] Referring Provider: Nataly Summers, [address], [place], [facility]. tel:[phone] [facility], [address], [place], [place], [address], [place] tel:[phone] [facility] No Information Oct-1 4-200 7 Sheri Ingram. [address], [place], [facility], [place]. tel:[phone] [facility], [address], [place], [place], [address], [place] tel:[phone] [facility] No Information Oct-1 3-200 7 Sheri Ingram. [address], [place], [facility], [place]. tel:[phone] [facility], [address], [place], [place], [address], [place] tel:[phone] [facility] No Information September-2 5-200 7 Sheri Ingram. [address], [place], [address], [place]. tel:[phone] Referring Provider: Nataly Summers, [address], [place], [facility]. tel:[phone] Office Consultation [facility], [address], [place], [place], [address], [place] tel:[phone] [facility] No Information Jul-2 6-200 7 Casey Connolly. [address] [place], [address], [place]. tel:[phone] Referring Provider: Nataly Summers, [address], [place], [facility]. tel:[phone] [facility], [address], [place], [place], [address], [place] tel:[phone] [facility] No Information 7 Sheri Ingram. [address], [place], [address], [place]. tel:[phone] Referring Provider: John [address], [place], [address]. tel:[phone] Family History Family Member Type Diagnosis Age At Onset No Information Payers Payer name Insurance type Covered green party ID Authoriza brianna(s) Juan [facility] [id number] Social History Type Description Quantity Date Captured Comments Sex Female Smoking Status No Information Chief Complaint And Reason For Visit No Information Reason For Referral Reason For Referral No Information History Of Present Illness Encounter Date Complaint History Of Prese nt Illness No Information Functional Status Date Functional Assessmen t No Information Instructions Date Instruction Additional Infor mation No Information Assessments Type Assessment Date No Information Patient Care Teams Name Effective Dates (start - stop) Status Members No Information
--- NOTE | ~2025-03-16 | CT_ITS ---
CT brain wo con HISTORY:CVA COMPARISON: 09/17/2024. TECHNIQUE: Axial images were obtained of the head without intravenous contrast. FINDINGS: No acute intracranial hemorrhage, mass effect or midline shift. No extra-axial fluid collections. Encephalomalacia changes within the left MCA territory adenopathy.Chronic white matter microangiopathic changes in the periventricular white matter.Visualized paranasal sinuses and mastoid air cells are clear. IMPRESSION: No acute intracranial hemorrhage or extra axial fluid collections. Encephalomalacia changes within the left MCA territory reflective of remote infarct. Chronic white matter microangiopathic changes in the periventricular white matter. All CT scans at this facility are performed using low dose modulation techniques as appropriate to perform exam including the following: automated exposure control; use of iterative reconstruction technique; adjustment of the mA and/or kV according to patient size (this includes techniques or standardized protocols for targeted exams where dose is matched to indication/reason for exam). Reviewed, dictated and finalized at location S. INE ROOM OPERATOR IMPRESSION: No acute intracranial hemorrhage or extra axial fluid collections. Encephalomal acia changes within the left MCA territory reflective of remote infarct. Chroni c white matter microangiopathic changes in the periventricular white matter. All CT scans at this facility are performed using low dose modulation techniqu es as appropriate to perform exam including the following: automated exposure c ontrol; use of iterative reconstruction technique; adjustment of the mA and/or kV according to patient size (this includes techniques or standardized protocol s for targeted exams where dose is matched to indication/reason for exam).
--- NOTE | ~2025-03-16 | XR_ITS ---
EXAMINATION: XR foot RT 2V DATE: 03/23/2025 16:56 INDICATION: Increasing right foot pain with ambulation TECHNIQUE: Dorsoplantar, two oblique and lateral views of the right foot were obtained. COMPARISON: Right foot CT dated 03/08/2025 and radiographs dated 03/07/2025 FINDINGS: Corticated margins to a chronic osteotomy at the neck of the fifth metatarsal. Still ununited fracture across the neck of the fourth proximal phalanx. No significant change in additional intra-articular fractures at the heads of the second and third proximal phalanges. No new fractures identified. Chronic juxta articular erosion with thin sclerotic margins at the medial head of the first metatarsal with typical location and appearance for gout. Polyarticular osteoarthritis, moderate severity at the fifth tarsal metatarsal joint and mild at the remaining tarsal metatarsal, first metatarsophalangeal and multiple interphalangeal joints. Subarticular lucencies with thin sclerotic margins at the bases of the fourth and fifth metatarsals could represent either additional chronic erosions or osteoarthritis related subarticular cystic change. Moderate- sized Achilles and plantar calcaneal spurs. IMPRESSION: 1. No significant change in still ununited fractures at the heads of the second and third proximal phalanges across the neck of the fourth proximal phalanx. 2. Mild to moderate polyarticular osteoarthritis in the right fore and midfoot. 3. Chronic juxta articular erosion at the medial head of the first metatarsal with classic location and appearance for gout. Lucencies the base of the fourth and fifth metatarsal could represent additional erosions or osteoarthritis related degenerative subarticular cystlike changes. Reviewed, dictated and finalized at location A. BUILDER IMPRESSION: 1. No significant change in still ununited fractures at the heads of the second and third proximal phalanges across the neck of the fourth proximal phalanx. 2. Mild to moderate polyarticular osteoarthritis in the right fore and midfoot. 3. Chronic juxta articular erosion at the medial head of the first metatarsal w ith classic location and appearance for gout. Lucencies the base of the fourth and fifth metatarsal could represent additional erosions or osteoarthritis rela mckenzie degenerative subarticular cystlike changes.
[2025-03-16 16:00] VITALS: BP 119/47; PULSE 56; RESP 18; TEMP 36.6; O2SAT 98
--- OUTSIDE RECORDS SUMMARY | 2025-03-16 16:22 | XMS_ITS | Clinical Summary ---
Author Organization [facility] Address [address] [place] [address] Care Team Providers Care Meat Stringer Name Role Phone Family Alirio Practice Rostovclaribel [...] Comments Blood Pressure 129/59 05/28/2022 8:00 AM NUCLEAR PLANT EQUIPMENT OPERATOR Pulse 76 05/28/2022 8:00 AM NUCLEAR PLANT EQUIPMENT OPERATOR Temperature 36.7 C (98 F) 05/28/2022 8:00 AM NUCLEAR PLANT EQUIPMENT OPERATOR Respiratory Rate 20 05/28/2022 8:00 AM NUCLEAR PLANT EQUIPMENT OPERATOR Oxygen Saturation 96% 05/28/2022 8:00 AM NUCLEAR PLANT EQUIPMENT OPERATOR Inhaled Oxygen Concentration - - Weight 111.6 kg (246 lb) 05/28/2022 6:37 AM NUCLEAR PLANT EQUIPMENT OPERATOR Height 162.6 cm (5' 4) 05/13/2022 5:19 PM NUCLEAR PLANT EQUIPMENT OPERATOR Body Mass Index 42.23 05/13/2022 5:19 PM NUCLEAR PLANT EQUIPMENT OPERATOR Plan of Treatment Health Maintenance Due [...] 6:45 PM 05/13/2022 6:03 PM Care Teams Meat Stringer Relationship Specialty Start Date End Date Alirio [facility] And [address] [place] [address] [address] [facility] [address] [place] [id number] PCP - General 05/14/22
--- OUTSIDE RECORDS SUMMARY | 2025-03-16 16:22 | XMS_ITS | Clinical Summary ---
Author Organization [facility] Address [address] [facility] [place] [address] Care Team Providers Care Aerotriangulation Specialist Name Role Phone Rikki Amezquita MD Primary Care Provider [phone] Source Comments [facility],non-owned Affiliates and Associated Physician Practices is amultiple site organization consisting of ambulatory clinics and hospital sitesin [place], [place], [place] and [place]. This disclosure is being madepursuant to the Care Everywhere program and may not contain all information available regarding this patient. Last updated 18.[facility] Allergies Active Allergy Reactions Criticality Noted Date [...] fluticasone propionate (Flonase) 50 MCG/ACT nasal spray [place] 2 (two) sprays into the nose once daily Active LORazepam (Ativan) 0.5 MG tablet 1 (one) tablet by Enteral route every 8 hours as needed Active nystatin (Mycostatin) 332547 UNIT/GM powder Apply 1 Application to affected [...] - 03/03/2025 11:59 PM CDT Hospital Encounter [facility] [address] [place] [address], [place] [address] Fernando Couch MD Vo, MD Abbe Discharge [...] Oxygen Concentration 40% 04/12/2022 3 :16 PM ORDERING MACHINE OPERATOR Weight 108.9 kg (240 lb) 03/03/2025 1:27 PM CDT Height 162.6 cm (5' 4) 03/03/2025 1:27 PM CDT Body Mass Index 41.2 03/03/2025 1:27 PM CDT Plan of Treatment Upcoming Encounters Date Type Department Care Team (Late st Contact Info) Description 06/23/2025 2:45 PM ORDERING MACHINE OPERATOR Appointment [facility] [address] [place] [address], [place] [phone] Health Maintenance Due Date Last Done Comments [...] CDT Abbe Monterroso MD 03/03/2025 2:13 PM [facility] Patient Name: Gregoria Rae : [...] was advanced under fluoroscopy and a 5 Faroese catheter placed. Digital subtraction images were obtained [...] lt from Last 3 Months Insurance MEDICARE [facility] MEDICARE Advance Directives * Full Code (Latest Code Status on File) Date Activated Date Inactivated Comments 05/14/2022 8:26 AM 05/28/2022 12:06 PM Care Teams Aerotriangulation Specialist Relationship Specialty Start Date End Date Rikki Amezquita MD [address] [place] [address] PCP - General 11/28/21
--- OUTSIDE RECORDS SUMMARY | 2025-03-16 16:22 | XMS_ITS | Clinical Summary ---
Author Organization [facility] Address [address], [place] [address] Phone Care Team Providers Care Admissions Assistant Name Role Phone Rikki Amezquita MD Primary Care Provider [phone] Allergies Active Allergy Reactions Criticality Noted Date [...] (#1) 2025 03/07/2022, 2020 Insurance MEDICARE MEDICARE [facility] MEDICARE [facility] MEDICARE [facility] Member Subscriber Plan / Payer (Ef fective 2024-Present) Name:Gregoria Rae Relation to Subscriber:Self Name:Gregoria Rae Subscriber ID:Not on file Payer ID:[id number] Group ID:Not on file Type:Not on file Address: [place] [id number] Care Teams Admissions Assistant Relationship Specialty Start Date End Date Rikki Amezquita MD [address] [facility] [address] [facility] [address] [place] [address] PCP - General Internal Medicine 03/07/22
--- OUTSIDE RECORDS SUMMARY | 2025-03-16 16:23 | XMS_ITS | Encounter Summary ---
Author Organization [facility] Address [address] [facility] [place] [address] Care Team Providers Care Deep Submergence Vehicle Crewmember Name Role Phone Rikki Amezquita MD Primary Care Provider [phone] Reason for Referral * Radiology Services (Routine) - Closed Specialty Diagnoses / Procedures Referred By Contac t Referred To Contact Vascular Lab Diagnoses ESRD (end stage renal disease) on dialysis (HCC) Procedures IR Angio Av [facility] Imaging Paul Chandler MD [address] [place] [address] [place] [phone] Phone: tel: fax: [facility] V[facility] Services [address] [place] [address], [address] [place] [address] Phone: tel: fax: Referral ID Status Reason Start Date Expiration Date Visits Re quested Visits Authorized [id number] Closed 10/01/2024 10/30/2024 1 1 Encounter Details Date Type Department Care Team (Late st Contact Info) Description 10/01/2024 Telephone [facility] Services [address] [place] [address], [address] [place] [address] Johana Kent, RN Social History [...] st Contact Info) Description 06/23/2025 2:45 PM WORD PROCESSING MACHINE OPERATOR Appointment [facility] [address] [place] [address], [place] [address] documented as of this encounter Results * IR Angio Av [facility] (10/30/2024 10:20 AM CDT) Anatomical Region Laterality Modality Lower Extremity, Upper Extremity, Chest X-Ray Angiography Narrative 10/30/2024 10:27 AM CDT Fernando Couch MD 10/30/2024 10:39 AM Interventional Radiology Post-Operative/Procedure Progress Notes Date: 10/30/2024 Surgeon: Fernando Couch MD Screen Writer: GREG Staff Pre-Procedure diagnosis: ESRD, outflow vein [...] was obtained. Prior to beginning the procedure, [place] Protocol was performed to confirm the patient's [...] graft followed by placement of a 5 georgian catheter. Fluoroscopy was used for all catheter [...] disease documented in this encounter Care Teams Deep Submergence Vehicle Crewmember Relationship Specialty Start Date End Date Rikki Amezquita MD [address] [place] [address] PCP - General 11/28/21 documented as of this encounter
--- OUTSIDE RECORDS SUMMARY | 2025-03-16 16:24 | XMS_ITS | Clinical Summary ---
Author Organization [facility] Address [address] [place] [address] Care Team Providers Care Breeder Hen Service Technician Name Role Phone Mona Currie MD PhD Unavailable [phone] Sammy Shepard MD Unavailable Rikki Amezquita MD Primary Care Provider Allergies Active Allergy Reactions Criticality Noted Date Comments Diphenhydramine Other (See comments) Low Restless leg Nickel Rash Medium Nifedipine Chest tightness Medium Lffkzgx-Grx-Tod Reductase Inhibitors Muscle pain Medium Sulfa Hives [...] tablet (20 mg total) nightly Active banana dadxsq-XWO-dyj er 5 gram-45 kcal/60 mL liquid in [...] per tube 1 tablet (200 mcg total) 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 F/u with PCP Assessment & Plan (04/13/2024 12:46 PM SIEVE GRADER TENDER): Recently pulled out by patient, surgical site is healing, continue to clean daily and cover with dry gauze Assessment & Plan (04/09/2024 1:53 PM SIEVE GRADER TENDER): Ok to keep tube out, cover area daily with dry gauze until healed, notify provider for change in condition or sx of dysphagia Assessment & Plan (04/06/2024 8:05 PM SIEVE GRADER TENDER): Now tolerating PO, likely could permanently DC soon, continue with h2o flushes for now Assessment & Plan (03/15/2024 10:55 AM SIEVE GRADER TENDER): Continue to flush q.i.d., able to tolerate food by mouth, CAD OPERATOR following Assessment & Plan (03/06/2024 9:49 [...] on imaging, continue nepro at 40ml/hr with CAD OPERATOR following for repeat swallow studies Hyperkalemia 01/18/2024 Assessment & Plan (01/18/2024 7:41 AM CDT): Improved after treatment at the hospital. Continue to monitor with dialysis. 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 01/18/2024 Assessment & Plan (04/28/2024 2:31 PM SIEVE GRADER TENDER): Has some improvement with therapy but remains weak with hemiparesis and aphasia, requires full care for all ADLs, unable to reposition self and will require electric hospital bed at home, ongoing PT/OT Contonie asa, statin, eliquis Heart healthy diet with exercise as tolerated Maintain BP and glycemic control F/u PCP Assessment & Plan (04/13/2024 12:49 PM SIEVE GRADER TENDER): Deficits improving have seem to stabilize now ambulatory with walker and gait belt, tolerating PO, speech garbled, continue statin, eliquis, heart healthy diet with exercise as tolerated; may need to transfer to LTC vs home with home health and family to care Assessment & Plan (04/09/2024 1:53 PM SIEVE GRADER TENDER): Deficits improving, now ambulatory with walker and gait belt, tolerating PO, speech remains garbled, continue statin, eliquis, heart healthy diet with exercise as tolerated Assessment & Plan (04/06/2024 8:08 PM SIEVE GRADER TENDER): Improving with therapies, now ambulatory and tolerating PO, speech remains garbled, continue statin, eliquis, heart healthy diet with exercise as tolerated Assessment & Plan (03/31/2024 2:26 PM SIEVE GRADER TENDER): Speech and mobility improving, now ambulatory with walker and gait belt. Continue PT/OT/CAD OPERATOR, continue statin and Eliquis, maintain BP and glycemic control Assessment & Plan (03/20/2024 8:07 PM SIEVE GRADER TENDER): Improving with therapy, continue statin and Eliquis, maintain BP and glycemic control. Continue PT OT, CAD OPERATOR, remains a fall risk F/u with neurology as scheduled, plans to DC home with Assessment & Plan (03/15/2024 10:51 AM SIEVE GRADER TENDER): Improving with therapy, continue statin and Eliquis, maintain BP and glycemic control. Continue PT OT, CAD OPERATOR, remains a fall risk Assessment & Plan (03/06/2024 9:49 PM CDT): Stable, improving with therapies, continue statin, eliquis, PT/OT/CAD OPERATOR, supportive care, continue to advance diet as tolerated Assessment & Plan (02/27/2024 3:02 PM CDT): Stable, improving with therapies, continue statin, eliquis, PT/OT/CAD OPERATOR, supportive care with plans to DC home following rehab stay Assessment & Plan (02/20/2024 1:56 PM CDT): Deficits improving with therapy, continue statin and eliquis, PT/OT/CAD OPERATOR with video swallow scheduled Continue bID zyprexa 2.5mg for now, may tolerate GDR at subsequent visit Assessment & Plan (02/19/2024 10:51 AM CDT): Improving with therapy, no recurrent episodes of agitation since starting BID zyprexa, continue statin and eliquis, PT/OT/CAD OPERATOR with video swallow scheduled Assessment & Plan (02/11/2024 1:32 PM CDT): Improving, continue statin and eliquis, PT/OT. CAD OPERATOR following for advancement of diet, will schedule Zyprexa 2.5mg HS rather than In am, conitnue supportive care, fall precautions Assessment & Plan (02/08/2024 3:56 PM CDT): Mobility and speech improving with intermittent agitation, fall risk, zyprexa increased to 2.5mg daily as unable to be redirected at times. Continue statin, eliquis, PT/TO/CAD OPERATOR, TF nepro per RD recs Assessment & Plan (02/03/2024 8:55 AM CDT): Mobility is improving, remains aphasic, able to follow simple commands and has spontaneous movements of all extremities; continue statin, eliquis, glycemic control, BP management, PT/OT/CAD OPERATOR Assessment & Plan (02/01/2024 9:33 AM CDT): Mobility is improving, intermittent anxiety, will need to monitor and provide supportive care, attempt to avoid benzos or antipsychotics although may need prn low dose meds due to fall risk and inability to be redirected; continue statin, eliquis, glycemic control, BP management, PT/OT/CAD OPERATOR Assessment & Plan (01/28/2024 2:35 PM [...] & Plan (01/25/2024 12:46 PM CDT): Ongoing PT/OT/CAD OPERATOR with generalized weakness, aphasia and R sided facial droop, follows some simple commands, continue statin and eliquis; monitor for fall risk given intermittent agitation; no new meds today but may need PRN due to fall risk Assessment & Plan (01/25/2024 11:13 AM CDT): Mobility is improving now at times getting out of bed without help, continue to monitor for fall risk, PT/OT/CAD OPERATOR; continue statin and eliquis Assessment & Plan (01/18/2024 5:52 PM CDT): Ongoing R sided weakness, R sided facial droop, aphasia; reports some improvement in spontaneous movement and mumbling. Continue asa, statin, eliquis; of note has documented statin intolerance, will need to find out specifics Continue PT/OT CAD OPERATOR , tube feeds for now with plans for repeat video swallow Type 2 diabetes mellitus with renal complication 01/18/2024 Assessment & Plan (04/09/2024 1:54 PM SIEVE GRADER TENDER): Glucose logs reviewed and stable, continue HS lantus and mealtime SSI, will try to DC SSI prior to DC home Assessment & Plan (04/06/2024 8:06 PM SIEVE GRADER TENDER): Stable, continue HS lantus and mealtime SSI, [...] 04/11/2023 At risk for amiodarone toxicity with detention u se 10/06/2022 Chronic anticoagulation 10/06/2022 Paroxysmal atrial fibrillation 10/06/2022 Assessment & Plan (04/28/2024 2:28 PM SIEVE GRADER TENDER): Rate controlled, continue metoprolol, amiodarone, eliquis F/u cardiology dr wiley Assessment & Plan (04/13/2024 12:46 PM SIEVE GRADER TENDER): Rate controlled on exam; continue metoprolol, amiodarone, Eliquis ; no recent falls Assessment & Plan (04/06/2024 8:06 PM SIEVE GRADER TENDER): Rate controlled; continue metoprolol, amiodarone, Eliquis Assessment & Plan (03/31/2024 2:29 PM SIEVE GRADER TENDER): Rate controlled on metoprolol, amiodarone; continue b.i.d. Eliquis Assessment & Plan (03/20/2024 8:09 PM SIEVE GRADER TENDER): Stable on metoprolol, amiodarone and eliquis, conitnue [...] 10/06/2022 Assessment & Plan (04/28/2024 2:26 PM SIEVE GRADER TENDER): Continue treatments outpatient MWF, epogen on HD days, f/u with nephrology Assessment & Plan (04/09/2024 1:54 PM SIEVE GRADER TENDER): Tolerating HD MWF, at times using p.r.n. lorazepam with HD treatment, anxiety during access. Monitor electrolytes and weight Continue Epogen Assessment & Plan (04/06/2024 8:08 PM SIEVE GRADER TENDER): Continue HD MWF, p.r.n. lorazepam with HD treatment. Monitor electrolytes and weight Continue Epogen Assessment & Plan (03/31/2024 2:26 PM SIEVE GRADER TENDER): Continue HD MWF, continues to use p.r.n. lorazepam with HD treatments; daughter states this is helping,. Monitor electrolytes and weight Continue Epogen Assessment & Plan (03/20/2024 8:08 PM SIEVE GRADER TENDER): Continue HD MWF, continue to monitor electrolytes and weight, may use p.r.n. lorazepam with HD treatments; no reports of recent agitation with treatments Assessment & Plan (03/15/2024 10:52 AM SIEVE GRADER TENDER): Continue HD MWF, continue to monitor electrolytes [...] 3:59 PM CDT): Receiving treatments MWF at [facility], intermittent anxiety, increase zyprexa to daily, [...] 5:55 PM CDT): Continue treatments MWF at [facility], TID calcium acetate, nephrology following, nepro tube feeds ordered, starting on jevity on admission due to no nepro available Assessment & Plan (01/18/2024 7:41 AM CDT): Continue with dialysis 3 times a week. Continue calcium acetate. Labs with dialysis. Preoperative cardiovascular examination 09/20/19 22 Chronic heart failure with preserved ejection fr action 07/02/2019 Assessment & Plan (04/28/2024 2:26 PM SIEVE GRADER TENDER): Stable, continue metoprolol, monitor weights with HD Assessment & Plan (03/20/2024 8:08 PM SIEVE GRADER TENDER): Stable on exam, continue metoprolol, monitor I/O, [...] 02/04 Assessment & Plan (04/06/2024 8:06 PM SIEVE GRADER TENDER): Weight is stable since rehab admission, continue exercise as tolerated, RD following Assessment & Plan (03/20/2024 8:09 PM SIEVE GRADER TENDER): Mobility is improving, recently stopped TF and [...] 02/04 Assessment & Plan (04/13/2024 12:48 PM SIEVE GRADER TENDER): Stable/compensated, continue HD treatments, weekly weights, metoprolol, statin amio, eliquis Assessment & Plan (03/20/2024 8:08 PM SIEVE GRADER TENDER): Stable on metoprolol and amiodarone, continue HD [...] a associated with type 2 diabetes mellitus ([facility]) 05/20/2013 Overview (08/11/2016): DMII WO CMP UNCNTRLD Assessment & Plan (04/13/2024 12:48 PM SIEVE GRADER TENDER): Well controlled on lantus 18 units hs with mealtime SSI, continue accuchecks ac and hs Assessment & Plan (03/15/2024 10:54 AM SIEVE GRADER TENDER): Glucose logs reviewed continue lantus 18 units [...] NOS Assessment & Plan (04/28/2024 2:28 PM SIEVE GRADER TENDER): Continue Lantus 18 units HS with mealtime SSI and daughter will assist with med administration Bp stable on metoprolol, monitor for BP goal ,140/<90 Continue accuchecks ac and hs Assessment & Plan (03/31/2024 2:28 PM SIEVE GRADER TENDER): Continue Lantus 18 units HS with mealtime SSI, glucose 236 this a.m., evening glucose 170, continue diabetic diet. BP stable on metoprolol Assessment & Plan (03/15/2024 10:53 AM SIEVE GRADER TENDER): BP stable on metoprolol 50mg daily, continue [...] NOS Assessment & Plan (04/13/2024 12:51 PM SIEVE GRADER TENDER): Subclinical hypothyroidism with TSH trending up to 92, encourage appropriate administration of medication in early a.m. on empty stomach, Synthroid increased to 200 mcg daily at previous visit with plan to repeat ths in 6 weeks, T3 and T4 normal Assessment & Plan (03/31/2024 2:30 PM SIEVE GRADER TENDER): Subclinical hypothyroidism with TSH trending up to 92, encourage appropriate administration of medication in early a.m. on empty stomach, Synthroid increased to 200 mcg daily Assessment & Plan (03/20/2024 8:09 PM SIEVE GRADER TENDER): Inpatient workup with Tsh elevated with normal t4, ensure medication administration appropriate early am on empty stomach; repeat TSH this week Assessment & Plan (03/15/2024 10:54 AM SIEVE GRADER TENDER): Inpatient workup with Tsh elevated with normal [...] on room air to complete PO abx, CAD OPERATOR to follow, DC on prn duonebs, [...] drink = 0.6 oz pur e alcohol) [facility] Utilities Answer Date Recorded In the [...] any clubs o r organizations such as sikhism groups, unions, fraternal or athletic groups, or [...] on file Legal Sex Female 10:22 AM SIEVE GRADER TENDER Gender Identity Not on file Sexual Orientation Not on file Last Filed Vital Signs Vital Sign Reading Time Taken Comments Blood Pressure 120/66 07/01/2024 9:38 AM SIEVE GRADER TENDER Pulse 55 07/01/2024 9:38 AM SIEVE GRADER TENDER Temperature 36.5 C (97.7 F) 03/03/2024 11:40 AM CDT Respiratory Rate 22 03/05/2024 8:31 AM CDT Oxygen Saturation 97% 07/01/2024 9:38 AM SIEVE GRADER TENDER Inhaled Oxygen Concentration - - Weight 89.7 kg (197 lb 11.2 oz) 07/01/2024 9:38 AM SIEVE GRADER TENDER Height 162.6 cm (5' 4) 07/01/2024 9:38 AM SIEVE GRADER TENDER Body Mass Index 33.94 07/01/2024 9:38 AM SIEVE GRADER TENDER Plan of Treatment Health Maintenance Due Date [...] POCT LIPID PANEL Routine 07/01/2024 9:57 AM SIEVE GRADER TENDER Need for lipid screening EGFR Routine 03/03/2024 6:45 AM CDT HEMOGLOBIN A1C Routine 02/27/2024 5:59 AM CDT HEPATITIS PANEL, ACUTE STAT 05/08/2022 3:59 PM SIEVE GRADER TENDER from Last 3 Months or Most Recently Relevant to Health Maintenance Results * POCT lipid panel (07/01/2024 9:57 AM SIEVE GRADER TENDER) Cholesterol, POC 138 mg/dL Comment:GLU = 176 HDL, POC 17 mg/dL Triglycerides, POC 168 mg/dL LDL Cholesterol POC 88 mg/dL Chol/HDL Ratio, POC 5.2 Non-HDL Cholesterol, POC 121 mg/dL Cholesterol Total, POC 138 mg/dL Capillary blood 07/01/2024 9 :57 AM SIEVE GRADER TENDER us Uriel Gillette MD POINT OF CARE [...] MD LAB BLOOD ORDERABLES Final Resu lt [id number] [facility] Department of Laboratories [place], [place] [id number] * (ABNORMAL) Hemoglobin A1c (02/27/2024 5:59 AM CDT) Hgb A1C 7.5(H) 4.0 - 5.6 % Estimated Average Glucose 169 mg/dL [facility] Comment: The ADA recommends reporting an estimated Average Glucose (eAG) with all Hemoglobin A1c results using the equation derived from a study of 507 normal and diabetic adults. Minority populations were underrepresented and children were not included. (Diabetes Care 31:6692-6072, 2008). The eAG is not equivalent to a fasting glucose. Blood 02/27/2024 5:59 AM CDT 02/27/2024 7:11 AM CDT us Asif Delgadillo MD LAB BLOOD ORDERABLES Final Re sult [facility] [address] [facility] Department [place] [address] * Hepatitis panel, acute (05/08/2022 3:59 PM SIEVE GRADER TENDER) Pathologist [facility] Hep A IgM Nonreactive Nonreactive [facility] Comment: Interpretive Data: If Hep A IgM Ab is reported as Equivocal, a new sample should be drawn in two weeks for testing. Current interpretive data was last revised on 19. Hep B core IgM Nonreactive Nonreactive [facility] Comment: Interpretive Data If HepB Core IgM Ab is reported as Equivocal, a new sample should be drawn in two weeks for testing. Current interpretive data was last revised on 19. Hep C Ab Nonreactive Nonreactive [facility] Comment: Interpretive Data Nonreactive: Antibodies to [...] last revised on 2019. HepBsAg Nonreactive Nonreactive [facility] Blood 05/08/2022 3:59 PM SIEVE GRADER TENDER 05/08/2022 3:59 PM SIEVE GRADER TENDER Mellissa Garcia DO LAB MICROBIOLOGY - GENERAL ORD ERABLES Final Result [facility] [address] Department [place] [address] from Last 3 Months or Most Recently Relevant to Health Maintenance Insurance MEDICARE [facility] MEDICARE [place] [facility] MEDICARE SUPPLEMENT Advance Directives For more information, please contact: [phone] Documents on File Type Date Recorded 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 ADVANCE DIRECTIVE 03/04/2024 10:[address] - Phys Order for PT Preferences * Full Code (Latest Code Status on File) Date Activated Date Inactivated Comments 02/25/2024 5:55 PM 03/03/2024 4:42 PM * Full Code Date Activated Date Inactivated Comments 05/11/2021 3:52 AM 05/14/2021 8:52 PM Care Teams Breeder Hen Service Technician Relationship Specialty Start Date End Date Rikki Amezquita MD [address] [facility] [address] [place] [id number] PCP - General Family Medicine 07/01/24 Mona Currie MD PhD Medical Oncologist/Field Representative Medical Oncology 01/07/21 Sammy Shepard MD Consulting Physician Nephrology 05/14/21
--- OUTSIDE RECORDS SUMMARY | 2025-03-16 16:24 | XMS_ITS | Clinical Summary ---
Author Organization [facility] Address [address] [place] [id number] Care Team Providers Care Body Design Checker Name Role Phone Unavailable Primary Care Provider [...]
--- OUTSIDE RECORDS SUMMARY | 2025-03-16 16:24 | XMS_ITS ---
Author Organization [facility] Address [address] [place] [address] Care Team Providers Care Assistant Athletic Trainer Name Role Phone Mona Currie MD PhD Unavailable [phone] Sammy Shepard MD Unavailable [phone] Rikki Amezquita MD Primary Care Provider Dialysis Access Sites Type Status Location Placement Date Removal Da te Hemodialysis AV Access Upper arm Active Left Upper Arm - Anterior Procedures Procedure Name Priority Date/Time Associated Diagnosis Comments POCT LIPID PANEL Routine 07/01/2024 9:57 AM REPAIR WEAVER Need for lipid screening EGFR Routine 03/03/2024 6:45 AM CDT HEMOGLOBIN A1C Routine 02/27/2024 5:59 AM CDT HEPATITIS PANEL, ACUTE STAT 05/08/2022 3:59 PM REPAIR WEAVER from Last 3 Months or Most Recently Relevant to Health Maintenance Allergies Active Allergy Reactions Criticality Noted Date Comments Diphenhydramine Other (See comments) Low Restless leg Nickel Rash Medium Nifedipine Chest tightness Medium Agtsdah-Zzp-Ltu Reductase Inhibitors Muscle pain Medium Sulfa Hives [...] tablet (20 mg total) nightly Active banana ovexpd-TYX-saw er 5 gram-45 kcal/60 mL liquid in [...] per tube 1 tablet (200 mcg total) 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 F/u with PCP Assessment & Plan (04/13/2024 12:46 PM REPAIR WEAVER): Recently pulled out by patient, surgical site is healing, continue to clean daily and cover with dry gauze Assessment & Plan (04/09/2024 1:53 PM REPAIR WEAVER): Ok to keep tube out, cover area daily with dry gauze until healed, notify provider for change in condition or sx of dysphagia Assessment & Plan (04/06/2024 8:05 PM REPAIR WEAVER): Now tolerating PO, likely could permanently DC soon, continue with h2o flushes for now Assessment & Plan (03/15/2024 10:55 AM REPAIR WEAVER): Continue to flush q.i.d., able to tolerate food by mouth, MEDICAL AUDITOR following Assessment & Plan (03/06/2024 9:49 PM [...] on imaging, continue nepro at 40ml/hr with MEDICAL AUDITOR following for repeat swallow studies Hyperkalemia 01/18/2024 Assessment & Plan (01/18/2024 7:41 AM CDT): Improved after treatment at the hospital. Continue to monitor with dialysis. 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 01/18/2024 Assessment & Plan (04/28/2024 2:31 PM REPAIR WEAVER): Has some improvement with therapy but remains weak with hemiparesis and aphasia, requires full care for all ADLs, unable to reposition self and will require electric hospital bed at home, ongoing PT/OT Contonie asa, statin, eliquis Heart healthy diet with exercise as tolerated Maintain BP and glycemic control F/u PCP Assessment & Plan (04/13/2024 12:49 PM REPAIR WEAVER): Deficits improving have seem to stabilize now ambulatory with walker and gait belt, tolerating PO, speech garbled, continue statin, eliquis, heart healthy diet with exercise as tolerated; may need to transfer to LTC vs home with home health and family to care Assessment & Plan (04/09/2024 1:53 PM REPAIR WEAVER): Deficits improving, now ambulatory with walker and gait belt, tolerating PO, speech remains garbled, continue statin, eliquis, heart healthy diet with exercise as tolerated Assessment & Plan (04/06/2024 8:08 PM REPAIR WEAVER): Improving with therapies, now ambulatory and tolerating PO, speech remains garbled, continue statin, eliquis, heart healthy diet with exercise as tolerated Assessment & Plan (03/31/2024 2:26 PM REPAIR WEAVER): Speech and mobility improving, now ambulatory with walker and gait belt. Continue PT/OT/MEDICAL AUDITOR, continue statin and Eliquis, maintain BP and glycemic control Assessment & Plan (03/20/2024 8:07 PM REPAIR WEAVER): Improving with therapy, continue statin and Eliquis, maintain BP and glycemic control. Continue PT OT, MEDICAL AUDITOR, remains a fall risk F/u with neurology as scheduled, plans to DC home with Assessment & Plan (03/15/2024 10:51 AM REPAIR WEAVER): Improving with therapy, continue statin and Eliquis, maintain BP and glycemic control. Continue PT OT, MEDICAL AUDITOR, remains a fall risk Assessment & Plan (03/06/2024 9:49 PM CDT): Stable, improving with therapies, continue statin, eliquis, PT/OT/MEDICAL AUDITOR, supportive care, continue to advance diet as tolerated Assessment & Plan (02/27/2024 3:02 PM CDT): Stable, improving with therapies, continue statin, eliquis, PT/OT/MEDICAL AUDITOR, supportive care with plans to DC home following rehab stay Assessment & Plan (02/20/2024 1:56 PM CDT): Deficits improving with therapy, continue statin and eliquis, PT/OT/MEDICAL AUDITOR with video swallow scheduled Continue bID zyprexa 2.5mg for now, may tolerate GDR at subsequent visit Assessment & Plan (02/19/2024 10:51 AM CDT): Improving with therapy, no recurrent episodes of agitation since starting BID zyprexa, continue statin and eliquis, PT/OT/MEDICAL AUDITOR with video swallow scheduled Assessment & Plan (02/11/2024 1:32 PM CDT): Improving, continue statin and eliquis, PT/OT. MEDICAL AUDITOR following for advancement of diet, will schedule Zyprexa 2.5mg HS rather than In am, conitnue supportive care, fall precautions Assessment & Plan (02/08/2024 3:56 PM CDT): Mobility and speech improving with intermittent agitation, fall risk, zyprexa increased to 2.5mg daily as unable to be redirected at times. Continue statin, eliquis, PT/TO/MEDICAL AUDITOR, TF zainab per RD recs Assessment & Plan (02/03/2024 8:55 AM CDT): Mobility is improving, remains aphasic, able to follow simple commands and has spontaneous movements of all extremities; continue statin, eliquis, glycemic control, BP management, PT/OT/MEDICAL AUDITOR Assessment & Plan (02/01/2024 9:33 AM CDT): Mobility is improving, intermittent anxiety, will need to monitor and provide supportive care, attempt to avoid benzos or antipsychotics although may need prn low dose meds due to fall risk and inability to be redirected; continue statin, eliquis, glycemic control, BP management, PT/OT/MEDICAL AUDITOR Assessment & Plan (01/28/2024 2:35 PM CDT): [...] & Plan (01/25/2024 12:46 PM CDT): Ongoing PT/OT/MEDICAL AUDITOR with generalized weakness, aphasia and R sided facial droop, follows some simple commands, continue statin and eliquis; monitor for fall risk given intermittent agitation; no new meds today but may need PRN due to fall risk Assessment & Plan (01/25/2024 11:13 AM CDT): Mobility is improving now at times getting out of bed without help, continue to monitor for fall risk, PT/OT/MEDICAL AUDITOR; continue statin and eliquis Assessment & Plan (01/18/2024 5:52 PM CDT): Ongoing R sided weakness, R sided facial droop, aphasia; reports some improvement in spontaneous movement and mumbling. Continue asa, statin, eliquis; of note has documented statin intolerance, will need to find out specifics Continue PT/OT MEDICAL AUDITOR , tube feeds for now with plans for repeat video swallow Type 2 diabetes mellitus with renal complication 01/18/2024 Assessment & Plan (04/09/2024 1:54 PM REPAIR WEAVER): Glucose logs reviewed and stable, continue HS lantus and mealtime SSI, will try to DC SSI prior to DC home Assessment & Plan (04/06/2024 8:06 PM REPAIR WEAVER): Stable, continue HS lantus and mealtime SSI, [...] 10/06/2022 Assessment & Plan (04/28/2024 2:28 PM REPAIR WEAVER): Rate controlled, continue metoprolol, amiodarone, eliquis F/u cardiology dr wiley Assessment & Plan (04/13/2024 12:46 PM REPAIR WEAVER): Rate controlled on exam; continue metoprolol, amiodarone, Eliquis ; no recent falls Assessment & Plan (04/06/2024 8:06 PM REPAIR WEAVER): Rate controlled; continue metoprolol, amiodarone, Eliquis Assessment & Plan (03/31/2024 2:29 PM REPAIR WEAVER): Rate controlled on metoprolol, amiodarone; continue b.i.d. Eliquis Assessment & Plan (03/20/2024 8:09 PM REPAIR WEAVER): Stable on metoprolol, amiodarone and eliquis, conitnue [...] 10/06/2022 Assessment & Plan (04/28/2024 2:26 PM REPAIR WEAVER): Continue treatments outpatient MWF, epogen on HD days, f/u with nephrology Assessment & Plan (04/09/2024 1:54 PM REPAIR WEAVER): Tolerating HD MWF, at times using p.r.n. lorazepam with HD treatment, anxiety during access. Monitor electrolytes and weight Continue Epogen Assessment & Plan (04/06/2024 8:08 PM REPAIR WEAVER): Continue HD MWF, p.r.n. lorazepam with HD treatment. Monitor electrolytes and weight Continue Epogen Assessment & Plan (03/31/2024 2:26 PM REPAIR WEAVER): Continue HD MWF, continues to use p.r.n. lorazepam with HD treatments; daughter states this is helping,. Monitor electrolytes and weight Continue Epogen Assessment & Plan (03/20/2024 8:08 PM REPAIR WEAVER): Continue HD MWF, continue to monitor electrolytes and weight, may use p.r.n. lorazepam with HD treatments; no reports of recent agitation with treatments Assessment & Plan (03/15/2024 10:52 AM REPAIR WEAVER): Continue HD MWF, continue to monitor electrolytes [...] 3:59 PM CDT): Receiving treatments MWF at [facility], intermittent anxiety, increase zyprexa to [...] 5:55 PM CDT): Continue treatments MWF at [facility], TID calcium acetate, nephrology following, nepro tube feeds ordered, starting on jevity on admission due to no nepro available Assessment & Plan (01/18/2024 7:41 AM CDT): Continue with dialysis 3 times a week. Continue calcium acetate. Labs with dialysis. Preoperative cardiovascular examination 09/20/19 22 Chronic heart failure with preserved ejection fr action 07/02/2019 Assessment & Plan (04/28/2024 2:26 PM REPAIR WEAVER): Stable, continue metoprolol, monitor weights with HD Assessment & Plan (03/20/2024 8:08 PM REPAIR WEAVER): Stable on exam, continue metoprolol, monitor I/O, [...] 02/04 Assessment & Plan (04/06/2024 8:06 PM REPAIR WEAVER): Weight is stable since rehab admission, continue exercise as tolerated, RD following Assessment & Plan (03/20/2024 8:09 PM REPAIR WEAVER): Mobility is improving, recently stopped TF and [...] 02/04 Assessment & Plan (04/13/2024 12:48 PM REPAIR WEAVER): Stable/compensated, continue HD treatments, weekly weights, metoprolol, statin inder cox Assessment & Plan (03/20/2024 8:08 PM REPAIR WEAVER): Stable on metoprolol and amiodarone, continue HD [...] a associated with type 2 diabetes mellitus ([facility]) 05/20/2013 Overview (08/11/2016): DMII WO CMP UNCNTRLD Assessment & Plan (04/13/2024 12:48 PM REPAIR WEAVER): Well controlled on lantus 18 units hs with mealtime SSI, continue accuchecks ac and hs Assessment & Plan (03/15/2024 10:54 AM REPAIR WEAVER): Glucose logs reviewed continue lantus 18 units [...] NOS Assessment & Plan (04/28/2024 2:28 PM REPAIR WEAVER): Continue Lantus 18 units HS with mealtime SSI and daughter will assist with med administration Bp stable on metoprolol, monitor for BP goal ,140/<90 Continue accuchecks ac and hs Assessment & Plan (03/31/2024 2:28 PM REPAIR WEAVER): Continue Lantus 18 units HS with mealtime SSI, glucose 236 this a.m., evening glucose 170, continue diabetic diet. BP stable on metoprolol Assessment & Plan (03/15/2024 10:53 AM REPAIR WEAVER): BP stable on metoprolol 50mg daily, continue [...] NOS Assessment & Plan (04/13/2024 12:51 PM REPAIR WEAVER): Subclinical hypothyroidism with TSH trending up to 92, encourage appropriate administration of medication in early a.m. on empty stomach, Synthroid increased to 200 mcg daily at previous visit with plan to repeat ths in 6 weeks, T3 and T4 normal Assessment & Plan (03/31/2024 2:30 PM REPAIR WEAVER): Subclinical hypothyroidism with TSH trending up to 92, encourage appropriate administration of medication in early a.m. on empty stomach, Synthroid increased to 200 mcg daily Assessment & Plan (03/20/2024 8:09 PM REPAIR WEAVER): Inpatient workup with Tsh elevated with normal t4, ensure medication administration appropriate early am on empty stomach; repeat TSH this week Assessment & Plan (03/15/2024 10:54 AM REPAIR WEAVER): Inpatient workup with Tsh elevated with normal [...] drink = 0.6 oz pur e alcohol) [facility] Utilities Answer Date Recorded In the past 12 months has [employer] gas, oil, or water [employer] threatened to shut off services in your [...] any clubs o r organizations such as mormon groups, unions, fraternal or athletic groups, or [...] any time in the past 12 m [facility], were you homeless or living in a [...] on file Legal Sex Female 10:22 AM REPAIR WEAVER Gender Identity Not on file Sexual Orientation Not on file Last Filed Vital Signs Vital Sign Reading Time Taken Comments Blood Pressure 120/66 07/01/2024 9:38 AM REPAIR WEAVER Pulse 55 07/01/2024 9:38 AM REPAIR WEAVER Temperature 36.5 C (97.7 F) 03/03/2024 11:40 AM CDT Respiratory Rate 22 03/05/2024 8:31 AM CDT Oxygen Saturation 97% 07/01/2024 9:38 AM REPAIR WEAVER Inhaled Oxygen Concentration - - Weight 89.7 kg (197 lb 11.2 oz) 07/01/2024 9:38 AM REPAIR WEAVER Height 162.6 cm (5' 4) 07/01/2024 9:38 AM REPAIR WEAVER Body Mass Index 33.94 07/01/2024 9:38 AM REPAIR WEAVER Results * POCT lipid panel (07/01/2024 9:57 AM REPAIR WEAVER) Cholesterol, POC 138 mg/dL Comment:GLU = 176 HDL, POC 17 mg/dL Triglycerides, POC 168 mg/dL LDL Cholesterol POC 88 mg/dL Chol/HDL Ratio, POC 5.2 Non-HDL Cholesterol, POC 121 mg/dL Cholesterol Total, POC 138 mg/dL Capillary blood 07/01/2024 9 :57 AM REPAIR WEAVER us Uriel Gillette MD POINT OF CARE [...] LAB BLOOD ORDERABLES Final Resu lt [facility] [id number] Department of Laboratories [place], [place] [id number] * (ABNORMAL) Hemoglobin A1c (02/27/2024 5:59 AM CDT) Hgb A1C 7.5(H) 4.0 - 5.6 % Estimated Average Glucose 169 mg/dL [facility] Comment: The ADA recommends reporting an estimated Average Glucose (eAG) with all Hemoglobin A1c results using the equation derived from a study of 507 normal and diabetic adults. Minority populations were underrepresented and children were not included. (Diabetes Care 31:9098-9404, 2008). The eAG is not equivalent to a fasting glucose. Blood 02/27/2024 5:59 AM CDT 02/27/2024 7:11 AM CDT Asif Delgadillo MD LAB BLOOD ORDERABLES Final Re sult Performing Organization Address City/[facility]/ZIP Co de Phone Number [facility] [id number] Department [place] [address] * Hepatitis panel, acute (05/08/2022 3:59 PM REPAIR WEAVER) Hep A IgM Nonreactive Nonreactive [facility] Comment: Interpretive Data: If Hep A IgM Ab is reported as Equivocal, a new sample should be drawn in two weeks for testing. Current interpretive data was last revised on 19. Hep B core IgM Nonreactive Nonreactive [facility] Comment: Interpretive Data If HepB Core [...] [facility] Blood 05/08/2022 3:59 PM REPAIR WEAVER 05/08/2022 3:59 PM REPAIR WEAVER Mellissa Garcia DO LAB MICROBIOLOGY - GENERAL ORD ERABLES Final Result [facility] [address] Department [place] [address] from Last 3 Months or Most Recently Relevant to Health Maintenance
[2025-03-16 16:40] LABS: Hematocrit 29.0 % (37.0-47.0); Hemoglobin 8.7 g/dL (12.0-15.0); Immature Granulocyte Percent A 0.6 % (0-0.5); Lymphocytes Absolute Auto 1.02 K/mm3 (0.9-3.2); Mean Corpuscular HGB Conc 30.0 g/dl (32-36); Mean Corpuscular Hemoglobin 27.2 pg (26-34); Mean Corpuscular Volume 90.6 fl (80-100); Nucleated Red Blood Cells Absolute Auto 0.000 K/mm3 (0.0-0.012); Nucleated Red Blood Cells Perc 0.0 % (0.0-0.2); Platelet Count Result 252 k/mm3 (150-375); Red Blood Count 3.20 M/mm3 (4.2-5.4); White Blood Count 7.0 K/mm3 (4.5-10.0)
[2025-03-16 16:49] LABS: Estimated CRCL calculation 15 ml/min; Estimated Glomerular Filt Rate 12
[2025-03-16 16:51] LABS: INR 1.6; Prothrombin Time 19.0 Seconds (11.1-14.7)
[2025-03-16 16:52] LABS: Partial Thromboplastin Time 36.6 Seconds (22.3-36.8)
[2025-03-16 16:54] LABS: Alanine Aminotransferase 17 U/L (6-35); Albumin Level 3.5 g/dL (3.5-5.1); Alkaline Phosphatase 121 U/L (38-126); Anion Gap 5 mmol/L (4-12); Aspartate Amino Transferase 27 U/L (14-36); Bilirubin,Total 0.6 mg/dL (0.2-1.3); Blood Urea Nitrogen 20 mg/dL (7-17); CRP 1.1 mg/dL (<1.0); Calcium 8.3 mg/dL (8.4-10.2); Carbon Dioxide 34 mmol/L (22-30); Chloride 95 mmol/L (98-107); Estimated CRCL calculation 15 ml/min; Estimated Glomerular Filt Rate 12; Glucose 135 mg/dL (65-110); Potassium 3.5 mmol/L (3.4-5.0); Sodium 134 mmol/L (137-145); Total Protein 7.1 g/dL (6.3-8.2)
--- NOTE | 2025-03-16 16:57 | ED_ITS ---
HPI - General Adult General Chief complaint: Altered Mental Status Stated complaint: ams Time Seen by Provider: 03/16/25 16:10 History of Present Illness HPI narrative: 74-year-old female prior history of CV with baseline speech deficit and facial droop from a stroke in 2022 presented to the emergency department for evaluation for increased confusion after dialysis. Patient did have a recent hospitalization for cellulitis, vasculitis an urinary tract infection. Patient does return home after dialysis when she had increased confusion and decreased ability to follow commands. does states that due to increased confusion patient did have a ground level fall and struck the right posterior aspect of her head. Patient states that the patient's facial droop, chorea like movement and speech deficit or all at her baseline. Related Data Home Medications ?Medication ?Instructions ?Recorded ?Confirmed ?Last Taken ?Type insulin aspart U-100 100 unit/mL See Rx Instructions . Route .COMPLEX 05/20/24 03/08/25 Unknown History (3 mL) subcutaneous pen (Novolog FlexPen U-100 Insulin aspart) amiodarone 200 mg tablet 200 mg PO QAM 09/02/2403/08 Unknown History ropinirole 2 mg tablet 0.5 mg PO Q12H 09/02/2407/01 Unknown History apixaban 2.5 mg tablet (Eliquis) 2.5 mg PO BID 5 03/08/25 Unknown History Allergies Allergy/AdvReac Type Severity Reaction Status Date / Time nickel Allergy Intermediate hives and Verified 03/16/25 16:18 itchy rash Sulfa (Sulfonamide Allergy Intermediate Urticaria Verified 03/16/25 16:18 Antibiotics) and hives Calcium Channel Blocking AdvReac Intermediate STATES Verified 03/16/25 16:18 Agents-Dih CANNOT TAKE SINCE SHE HAS ASTHMA diphenhydramine AdvReac Intermediate restless Verified 03/16/25 16:18 legs nifedipine AdvReac Intermediate palpitation Verified 03/16/25 16:18 s Cnoiyoj-CJF-CiA Reductase AdvReac Intermediate muscle Verified 03/16/25 16:18 Inhibitor (Vcnezij-Kgx-Sjx cramps Reductase Inhibitor) Review of Systems 2 Review of Systems: ROS unobtainable: Yes unobtainable due to medical condition PMFSH Past Medical History Medical History 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 Paroxysmal atrial fibrillation Bilateral primary osteoarthritis of knee Renal osteodystrophy DVT of lower extremity (deep venous thrombosis) Asthma-COPD overlap syndrome Left-sided cerebrovascular accident (CVA) (01/04/24) With residual left-sided visual neglect, profound expressive aphasia and right-sided hemiplegia ESRD on hemodialysis (02/17/22) Chronic anticoagulation Obstructive sleep apnea Hypothyroidism Insulin dependent type 2 diabetes mellitus Generalized anxiety disorder Chronic obstructive pulmonary disease Chronic diastolic (congestive) heart failure Coronary artery disease involving [place] heart without angina pectoris Depression GERD without esophagitis Peripheral polyneuropathy Surgical History Surgical History History of tracheostomy (04/24/22) With subsequent removal History of cataract extraction History of tonsillectomy History of cholecystectomy History of gastrostomy tube placement and removal Family History Family History Father Hypertension Family history of coronary artery disease Sibling Hypertension Family history of coronary artery disease Mother Cerebrovascular accident Other Asthma Depression Family history of Alzheimer's disease Family history of arthritis Family history of cardiovascular disease Family history of lymphoma Family history of obesity Family history of seizure disorder Social History Social History Social History: Surrogate medical decision maker: Anjum (spouse) or Gwen (daughter) Kyra. Code status: Full code. Smoking packs per day: 1 Smoking cigarettes per day: 20.0 Years smoked: 22 Smoking pack-years: 22.00 Tobacco type: cigarettes Second hand tobacco smoke exposure: No Smoking end date: 05/07/84 Alcohol intake: never Alcohol use details: special occasions Substance use: never Substance use type: does not use Last use: 01/05/23 Do You Feel Safe in your Home?: Yes Lack of Transportation: No Lack of Food: Never True Current Housing: I Have Housing Concerned About Future Housing: No Difficulty Paying Gas/Electric Bills: No Difficulty Paying for Meds: No Currently Unemployed: No Education: High School Diploma/GED Difficulty w/ Childcare or Family Care: No Living arrangements: with family Occupation/Education: retired Spiritual care concerns: Yes (worship) Exam 2 Narrative: APPEARANCE: Ill-appearing HEAD: normocephalic, atraumatic. EYES: PERRLA/EOMI, conjunctivae clear. NOSE: Normal no drainage EARS:TMS clear with good light reflex. THROAT: Pharynx clear, no exudate. NECK: Supple. No adenopathy, no masses. RESPIRATORY: Airway patent, respirations nonlabored. Clear to auscultation bilaterally, no rales, rhonchi, wheezing. CARDIOVASCULAR: Regular rate and rhythm without murmurs rubs or gallops. ABDOMINAL: Soft, nontender, nondistended, normal bowel sounds MUSCULOSKELETAL: Moves all extremities. Strength/ROM intact, No edema, No calf tenderness. NEURO: Dysphasia, left-sided facial droop SKIN: Warm, dry. Normal Color Course Vital Signs Vital signs: Vital Signs Temperature 97.8 F 03/16/25 16:00 Pulse Rate 56 L 03/16/25 16:00 Respiratory Rate 18 03/16/25 16:00 Blood Pressure 119/47 L 03/16/25 16:00 Pulse Oximetry 98 03/16/25 16:00 Oxygen Delivery Room Air 03/16/25 16:00 Temperature 97.8 F 03/16/25 16:00 Pulse Rate 58 L 03/16/25 19:01 Respiratory Rate 20 03/16/25 19:01 Blood Pressure 142/39 H 03/16/25 19:01 Pulse Oximetry 99 03/16/25 19:01 Oxygen Delivery Room Air 03/16/25 18:20 Medical Decision Making [facility] Narrative Medical decision making narrative: 74-year-old female with prior history of CVA with no change in her and weakness facial droop and speech deficit presented emergency department for evaluation with increased fusion and inability to follow commands at her typical baseline. Patient is currently afebrile with a ptosis and was a sepsis similar to baseline. Patient did have dialysis today and patient has significant acute abnormalities CMP UA mass concerning for underlying infection, high white blood cells leukocyte esterase positive, this a cath sample. Head CT showed no acute intracranial abnormality, no evidence of subdural hematoma subarachnoid hemorrhage. Patient has previous urine cultures that are positive. Patient is being started on IV Rocephin in the emergency department. Case was discussed with the hospitalist and patient was accepted for admission. Nephrology was consulted. Patient does not need emergent dialysis tonight. Differential Diagnosis Differential Diagnosis: CVA, TIA Vital Signs Vital Signs: Vital Signs Temperature 97.8 F 03/16/25 16:00 Pulse Rate 56 L 03/16/25 16:00 Respiratory Rate 18 03/16/25 16:00 Blood Pressure 119/47 L 03/16/25 16:00 Pulse Oximetry 98 03/16/25 16:00 Oxygen Delivery Room Air 03/16/25 16:00 Temperature 97.8 F 03/16/25 16:00 Pulse Rate 58 L 03/16/25 19:01 Respiratory Rate 20 03/16/25 19:01 Blood Pressure 142/39 H 03/16/25 19:01 Pulse Oximetry 99 03/16/25 19:01 Oxygen Delivery Room Air 03/16/25 18:20 Lab Data Lab results reviewed: Yes I reviewed the patient's lab results. 03/16/25 16:29 03/16/25 17:45 Labs: Lab Results 03/16/25 03/16/25 03/16/25 Range/Units 16:29 17:33 17:45 WBC 7.0 (4.5-10.0) K/mm3 RBC 3.20 L (4.2-5.4) M/mm3 Hgb 8.7 L (12.0-15.0) g/dL Hct 29.0 L (37.0-47.0) % MCV 90.6 (80-100) fl MCH 27.2 (26-34) pg MCHC 30.0 L (32-36) g/dl RDW 19.5 H (11.5-14.5) % Plt Count 252 (150-375) k/mm3 MPV 10.1 (7.4-10.4) fl Immature Gran % (Auto) 0.6 H (0-0.5) % Neut % (Auto) 69.7 (45.5-73.1) % Lymph % (Auto) 14.6 L (18.3-44.2) % [place] % (Auto) 10.7 H (2.6-8.5) % Eos % (Auto) 3.7 (0-4.4) % Baso % (Auto) 0.7 (0.2-1.2) % Lymph # (Auto) 1.02 (0.9-3.2) K/mm3 [place] # (Auto) 0.8 H (0.1-0.6) K/mm3 Eos # (Auto) 0.3 (0-0.3) K/mm3 Baso # (Auto) 0.1 (0.0-0.1) K/mm3 Abs Immat Gran (auto) 0.04 H (0.00-0.031) K/mm3 Absolute Neuts (auto) 4.9 (1.3-6.7) K/mm3 Absolute Nucleated RBC 0.000 (0.0-0.012) K/mm3 Nucleated RBC % 0.0 (0.0-0.2) % PT 19.0 H (11.1-14.7) Seconds INR 1.6 APTT 36.6 (22.3-36.8) Seconds Sodium 134 L (137-145) mmol/L Potassium 3.5 (3.4-5.0) mmol/L Chloride 95 L (98-107) mmol/L Carbon Dioxide 34 H (22-30) mmol/L Anion Gap 5 (4-12) mmol/L BUN 20 H (7-17) mg/dL Creatinine 3.63 H 3.70 H (0.7-1.0) mg/dL Estim Creat Clear Calc 15 15 ml/min Estimated GFR 12 L 12 L (59 - ) Glucose 135 H (65-110) mg/dL Lactic Acid 1.5 (0.7-2.0) mmol/L Calcium 8.3 L (8.4-10.2) mg/dL Total Bilirubin 0.6 (0.2-1.3) mg/dL AST 27 (14-36) U/L ALT 17 (6-35) U/L Alkaline Phosphatase 121 (38-126) U/L C-Reactive Protein 1.1 (<1.0) mg/dL Total Protein 7.1 (6.3-8.2) g/dL Albumin 3.5 (3.5-5.1) g/dL Urine Color Dark yellow (Yellow) Urine Appearance Turbid H (Clear) Urine pH 6.0 (5.0-9.0) Ur Specific [place] 1.023 (1.001-1.035) Urine Protein 3+ H (Negative) mg/dL Urine Glucose (UA) Negative (Negative) mg/dL Urine Ketones Trace H (Negative) mg/dL Ur Blood (Man) 2+ H (Negative) Urine Nitrate Negative (Negative) Urine Bilirubin Negative (Negative) Urine Urobilinogen 1.0 (<2.0) mg/dL Add Ur Microanalysis Reviewed Leukocyte Esterase Rfl 3+ H (Negative) ERICK/UL Urine RBC 6-10 H (0-2) /hpf Urine WBC >100 H (0-3) /hpf Ur Squamous Epith Cells Occasional (Few) /hpf Urine Bacteria None seen /hpf Urine Casts 6-10 Imaging Data Radiologist's impression: Impressions Head CT 03/16/25 16:58 IMPRESSION: No acute intracranial hemorrhage or extra axial fluid collections. Encephalomalacia changes within the left MCA territory reflective of remote infarct. Chronic white matter microangiopathic changes in the periventricular white matter. All CT scans at this facility are performed using low dose modulation techniques as appropriate to perform exam including the following: automated exposure control; use of iterative reconstruction technique; adjustment of the mA and/or kV according to patient size (this includes techniques or standardized protocols for targeted exams where dose is matched to indication/reason for exam). Discharge Plan Discharge Clinical Impression: AMS (altered mental status), Acute UTI Patient Disposition: Still a Patient Condition: Serious
[2025-03-16 17:33] VITALS: BP 124/73; PULSE 53; RESP 16
[2025-03-16 18:16] LABS: Add Urine Microscopic? YES; Appearance Urine Turbid (Clear); Glucose Urine UA Negative (Negative); Leukocyte Esterase Ur 3+ LEU/UL (Negative); Need Manual Microscopic Reviewed; Nitrate Urine Negative (Negative); Specific Grav Ur 1.023 (1.001-1.035)
[2025-03-16 18:20] VITALS: BP 111/71; PULSE 52; RESP 20; O2SAT 99
--- NOTE | 2025-03-16 18:53 | WPCEDHO ---
ED Hand Off Checklist All vitals saved:y IV Site documented:y All med administrations documented:y Triage Note Triage Note Pt's reports pt's 03/16/25 16:00 behavior was different/more confused after she got home from dialysis around 1400 this afternoon. states she needed more direction to assist in her getting out of the car upon arrival home, she went to the restroom and didn't know how to pull her pants up, then sat down to eat and he states, its like she didn't how to eat and that's not normal. Hx of CVA in 12/2023 with right sided deficits (able to ambulate independently with walker) and speech is difficult to understand at baseline. Pt had mechanical fall around 1450 as well, was sitting down on a stool and it slid out from her. Pt struck right side of head on rung of the stool on the way down, swelling noted, no open wound. Pt on Eliquis. FSBS 130. reports pt's speech and extremity movement is her baseline, but concerned about the confusion/fall, and reports that the right side of her face appears more droopy than normal. Pt recently discharged from inpatient stay for UTI and cellulitis vs vascular issue to lower extremity, reports she is still taking Augmentin. Allergies nickel Allergy (Intermediate, Verified 03/16/25 16:18) hives and itchy rash Sulfa (Sulfonamide Antibiotics) Allergy (Intermediate, Verified 03/16/25 16:18) Urticaria and hives Calcium Channel Blocking Agents-Dih Adverse Reaction (Intermediate, Verified 03/16/25 16:18) STATES CANNOT TAKE SINCE SHE HAS ASTHMA diphenhydramine Adverse Reaction (Intermediate, Verified 03/16/25 16:18) restless legs nifedipine Adverse Reaction (Intermediate, Verified 03/16/25 16:18) palpitations Gsbluzy-SMH-UuL Reductase Inhibitor (Dekvyhx-Gkc-Syt Reductase Inhibitor) Adverse Reaction (Intermediate, Verified 03/16/25 16:18) muscle cramps Family History (Last Reviewed 03/12/25 @ 13:44 by Sarah Pate MA) Father Hypertension Family history of coronary artery disease Sibling Hypertension Family history of coronary artery disease Mother Cerebrovascular accident Other Asthma Depression Family history of Alzheimer's disease Family history of arthritis Family history of cardiovascular disease Family history of lymphoma Family history of obesity Family history of seizure disorder Interventions/Assessments IV / Saline Lock, Insert Start: 03/16/25 15:51 Freq: Status: Active Protocol: Document 03/16/25 16:35 CMM (Rec: 03/16/25 16:36 CMM [id number]) IV Assessment Peripheral Access Right Forearm IV Catheter Access Initiated IV Insertion Date 03/16/25 IV Insertion Time 16:36 Catheter Gauge 20 IV Insertion 2 Attempts IV Site Assessment WNL IV Care and WNL Maintenance PA: Cardiovascular Assessment Start: 03/16/25 15:51 Freq: Status: Active Protocol: Document 03/16/25 18:20 CMM (Rec: 03/16/25 18:21 CMM [id number]) Cardiovascular Assessment Cardiovascular None Symptoms Skin Description Normal Color PA: Neurological Assessment Start: 03/16/25 15:51 Freq: Status: Active Protocol: Document 03/16/25 18:20 CMM (Rec: 03/16/25 18:21 CMM [id number]) Neurological Assessment Level of Alert Consciousness Arousable to Verbal Orientation Oriented to Person Neurological Confusion Symptoms Behavior Cooperative Additional Hx of garbled speech Neurological Comments Ability to Maintain Unable to Assess Balance Facial Symmetry Unable to Assess Speech Pattern Garbled Ability to Swallow Unable to Assess Tongue Position Unable to Assess PA: Respiratory Assessment Start: 03/16/25 15:51 Freq: Status: Active Protocol: Document 03/16/25 18:20 CMM (Rec: 03/16/25 18:21 CMM [id number]) Respiratory Assessment Symptoms None Effort Normal Cough Description None Oxygen Delivery Oxygen Delivery Room Air Last Vital Signs Temperature 97.8 F 03/16/25 16:00 Pulse Rate 52 L 03/16/25 18:20 Respiratory Rate 20 03/16/25 18:20 Pulse Oximetry 99 03/16/25 18:20 Blood Pressure 111/71 03/16/25 18:20 Blood Pressure Mean 84 03/16/25 18:20 Blood Pressure Position Sitting 03/16/25 18:20 Oxygen Delivery Room Air 03/16/25 18:20 Weight 110.45 kg 03/16/25 16:00 Last Result - Abnormals Only RBC 3.20 M/mm3 (4.2-5.4) L 03/16/25 16:29 Hgb 8.7 g/dL (12.0-15.0) L 03/16/25 16:29 Hct 29.0 % (37.0-47.0) L 03/16/25 16: MCHC 30.0 g/dl (32-36) L 03/16/25 16: RDW 19.5 % (11.5-14.5) H 03/16/25 16: Immature Gran % (Auto) 0.6 % (0-0.5) H 03/16/25 16: Lymph % (Auto) 14.6 % (18.3-44.2) L 03/16/25 16: [place] % (Auto) 10.7 % (2.6-8.5) H 03/16/25 16: [place] # (Auto) 0.8 K/mm3 (0.1-0.6) H 03/16/25 16: Abs Immat Gran (auto) 0.04 K/mm3 (0.00-0.031) H 03/16/25 16: PT 19.0 Seconds (11.1-14.7) H 03/16/25 16:29 Sodium 134 mmol/L (137-145) L 03/16/25 16: Chloride 95 mmol/L (98-107) L 03/16/25 16: Carbon Dioxide 34 mmol/L (22-30) H 03/16/25 16: BUN 20 mg/dL (7-17) H 03/16/25 16:29 Creatinine 3.70 mg/dL (0.7-1.2) H 03/16/25 17:45 Estimated GFR 12 (59-) L 03/16/25 17:45 Glucose 135 mg/dL (65-110) H 03/16/25 16: Calcium 8.3 mg/dL (8.4-10.2) L 03/16/25 16:29 Urine Appearance Turbid (Clear) H 03/16/25 17:33 Urine Protein 3+ mg/dL (Negative) H 03/16/25 17:33 Urine Ketones Trace mg/dL (Negative) H 03/16/25 17:33 Ur Blood (Man) 2+ (Negative) H 03/16/25 17:33 Leukocyte Esterase Rfl 3+ ERICK/UL (Negative) H 03/16/25 17:33 Urine RBC 6-10 /hpf (0-2) H 03/16/25 17:33 Urine WBC >100 /hpf (0-3) H 03/16/25 17:33
[2025-03-16] MEDS: cefTRIAXone 1 GM in SODIUM CHLORIDE 0.9% IV 50 ML 100 ML IVPB (19:00)
[2025-03-16 19:01] VITALS: BP 142/39; PULSE 58; RESP 20; O2SAT 99
[2025-03-16 22:28] VITALS: BP 188/60; PULSE 52; RESP 18; TEMP 36.2; O2SAT 97
--- NOTE | 2025-03-16 23:42 | P.HP_ITS ---
H&P: HPI History of Present Illness Date/Time: 03/16/25 23:42 Chief Complaint: Not acting like herself after dialysis Narrative: 74-year-old female with a complex past medical history including CVA 12/2023 with residual right-sided deficits and expressive aphasia, end-stage renal disease on hemodialysis Sunday, peripheral vascular disease, insulin-dependent diabetes mellitus, obstructive sleep apnea, COPD, grade 2 diastolic function and prior COVID associated pneumonia with acute respiratory failure requiring tracheostomy and subsequent removal who presented to the ER from home after she became confused. The patient's reported that the patient seemed to have difficulty figuring out how to pull up her pants. When he Sunday on his tried a the she seemed to have difficulty understanding how to get her food to her mouth. Then she was sitting on a stool at around 15:00 and it slid out from under. She struck the right side her head on the stool on the weight down. She does take Eliquis for stroke prophylaxis. The patient does have baseline right-sided deficits and expressive aphasia that is unchanged from baseline. The patient will answer questions by answering yes and no. She will occasionally try to answer questions otherwise but just makes nonsensical sounds. When asked if she is tired she nods her head yes. She indicates that negative response when asked if she has pain. She did follow all commands except for when I asked her to open her mouth for exam. She was afebrile on presentation to the ER in her white count was normal her hemoglobin was stable compared to baseline and her electrolyte panel was within her usual range. She did have a urinalysis that demonstrated 3+ leukocyte esterase greater than 100 wbc's but no bacteria. She had a recent hospitalization and was tested for UTI but her urine culture was negative. She had erythema to the left leg that was initially thought to be cellulitis or infected ulcer of the right heel with imaging actually demonstrated severe atherosclerotic changes with critical stenosis at the junction of the super facial femoral and femoral arteries the patient is in the process of being evaluated as outpatient by vascular surgery. Review of Systems 2 Review of Systems: Limited due to patient's expressive aphasia [facility] Past Medical History Medical History (Updated 03/17/25 @ 09:22 by Gwen Jaimes DO) Femoral artery stenosis, right 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 Paroxysmal atrial fibrillation Bilateral primary osteoarthritis of knee Renal osteodystrophy DVT of lower extremity (deep venous thrombosis) Asthma-COPD overlap syndrome Left-sided cerebrovascular accident (CVA) (01/04/24) With residual left-sided visual neglect, profound expressive aphasia and right-sided hemiplegia ESRD on hemodialysis (02/17/22) Chronic anticoagulation Obstructive sleep apnea Hypothyroidism Insulin dependent type 2 diabetes mellitus Generalized anxiety disorder Chronic obstructive pulmonary disease Chronic diastolic (congestive) heart failure Coronary artery disease involving [place] heart without angina pectoris Depression GERD without esophagitis Peripheral polyneuropathy Surgical History Surgical History History of tracheostomy (04/24/22) With subsequent removal History of cataract extraction History of tonsillectomy History of cholecystectomy History of gastrostomy tube placement and removal Family History Family History Father Hypertension Family history of coronary artery disease Sibling Hypertension Family history of coronary artery disease Mother Cerebrovascular accident Other Asthma Depression Family history of Alzheimer's disease Family history of arthritis Family history of cardiovascular disease Family history of lymphoma Family history of obesity Family history of seizure disorder Social History Social History (Updated 03/17/25 @ 09:13 by Gwen Jaimes DO) Social History: Surrogate medical decision maker: Anjum (spouse) or Gwen (daughter) Kyra. Code status: Do not intubate Smoking packs per day: 1 Smoking cigarettes per day: 20.0 Years smoked: 22 Smoking pack-years: 22.00 Tobacco type: cigarettes Second hand tobacco smoke exposure: No Smoking end date: 05/07/84 Alcohol intake: never Alcohol use details: special occasions Substance use: never Substance use type: does not use Last use: 01/05/23 Do You Feel Safe in your Home?: Yes Lack of Transportation: No Lack of Food: Never True Current Housing: I Have Housing Concerned About Future Housing: No Difficulty Paying Gas/Electric Bills: No Difficulty Paying for Meds: No Currently Unemployed: No Education: High School Diploma/GED Difficulty w/ Childcare or Family Care: No Living arrangements: with family Occupation/Education: retired Spiritual care concerns: No Meds Home Medications and Allergies Home Medications ?Medication ?Instructions ?Recorded ?Confirmed ?Type albuterol sulfate 2.5 mg/3 mL 2.5 mg (3 mL) inhalation Q4-6H PRN 07/10/23 03/16/25 Rx (0.083 %) solution for nebulization shortness of breat h or wheezing #90 mL Ventolin HFA 90 mcg/actuation See Rx Instructions .Rou te 05/20/24 03/16/25 Rx aerosol inhaler (albuterol sulfate) .COMPLEX #18 grams insulin aspart U-100 100 unit/mL See Rx Instructions . Route .COMPLEX 05/20/24 03/16/25 History (3 mL) subcutaneous pen (Novolog FlexPen U-100 Insulin aspart) metoprolol succinate 50 mg 50 mg PO QAM #90 tabs 05/2003/16/25 Rx tablet,extended release 24 hr montelukast 10 mg tablet 10 mg PO DAILY #90 tabs 06/0803/16/25 Rx budesonide-formoterol HFA 160 2 puff inhalation Q12H # 10.2 grams 07/17/24 03/16/25 Rx mcg-4.5 mcg/actuation aerosol inhaler amiodarone 200 mg tablet 200 mg PO QAM 09/02/2403/16 History atorvastatin 20 mg tablet (Lipitor) 20 mg PO HS #90 ta bs 11/03/24 03/16/25 Rx trazodone 50 mg tablet 50 mg PO QHS #30 tabs 03/16/25 Rx escitalopram oxalate 5 mg tablet 5 mg PO DAILY #90 tab s 11/04/24 03/16/25 Rx (Lexapro) hydralazine 25 mg tablet 25 mg PO TID #270 tabs 12/0403/16/25 Rx isosorbide mononitrate 30 mg 30 mg PO DAILY #90 tabs 1 03/16/25 Rx tablet,extended release 24 hr apixaban 2.5 mg tablet (Eliquis) 2.5 mg PO BID 5 03/16/25 History amoxicillin 500 mg-potassium 1 tablet PO QHS #4 tabs 1 05/10/24 03/16/25 Rx clavulanate 125 mg tablet (Augmentin) insulin glargine 100 unit/mL (3 18 unit (0.18 mL) subc ut QPM #15 mL 11/06/25 11/10/25 Rx mL) subcutaneous pen (Lantus Solostar U-100 Insulin) calcium acetate 667 mg tablet 667 mg PO DAILY 03/16/25 03/16/25 History levothyroxine 200 mcg capsule 200 mcg PO DAILY 5 03/16/25 History lorazepam 0.5 mg tablet (Ativan) 0.5 mg PO BID PRN anx iety #60 tabs 03/16/25 03/16/25 Rx ropinirole 0.5 mg tablet 0.5 mg PO BID 03/16/2503/16 History Allergies Allergy/AdvReac Type Severity Reaction Status Date / Time nickel Allergy Intermediate hives and Verified 03/16/25 20:28 itchy rash Sulfa (Sulfonamide Allergy Intermediate Urticaria Verified 03/16/25 20:28 Antibiotics) and hives Calcium Channel Blocking AdvReac Intermediate STATES Verified 03/16/25 20:28 Agents-Dih CANNOT TAKE SINCE SHE HAS ASTHMA diphenhydramine AdvReac Intermediate restless Verified 03/16/25 20:28 legs nifedipine AdvReac Intermediate palpitation Verified 03/16/25 20:28 s Wugwyge-JBW-OpF Reductase AdvReac Intermediate muscle Verified 03/16/25 20:28 Inhibitor (Fhwtlkj-Edi-Jir cramps Reductase Inhibitor) Vital Signs Vital Signs - 24 hr 03/16/25 16:00 03/16/25 17:33 03/16/25 18:20 Temperature 97.8 F Pulse Rate 56 L 53 L Respiratory Rate 18 16 Blood Pressure 119/47 L 124/73 Pulse Oximetry 98 Oxygen Delivery Room Air Room Air 03/16/25 18:20 03/16/25 19:01 03/16/25 22:28 Temperature 97.2 F L Pulse Rate 52 L 58 L 52 L Respiratory Rate 20 20 18 Blood Pressure 111/71 142/39 H 188/60 H Pulse Oximetry 99 99 97 Oxygen Delivery Exam 2 Narrative: Weight 93.7 kg BMI 35.5 Const: Other: Chronically debilitated, obese, no acute distress HENMT: Other: Mucous membranes are moist, no oral pharyngeal erythema, dentures in place, oral exam limited due to lack of cooperation her understanding with request, tenderness to the right side of the scalp Eyes: Other: Pupils are equal and reactive, positive conjunctival pallor Neck: Other: No JVD, no lymphadenopathy Resp: Other: Mild wheezing bilaterally, no increased work of breathing Cardio: Other: Regular rate, regular rhythm, palpable thrill over left upper arm AV fistula 2+ pulses right radial, unable to palpate pedal pulses with known history of severe peripheral artery disease GI: Other: Soft, nontender, distended, normoactive bowel sounds Skin: Other: Chronic ulceration to the posterior left calcaneus, no increased warmth or drainage, otherwise generalized pallor noted Neuro: Other: The patient is alert arouses easily to verbal stimuli will occasionally say I ordered 2 that is understandable but otherwise speech is gibberish with no distinguishable words, she has chronic right facial droop and right upper extremity and right lower extremity weakness due to prior CVA Extrem: Other: 3+ experimental machining lab manager strength on the right 2+ strengt h on plantar flexion on the right, 5/5 experimental machining lab manager strength on the left and 4/5 plantar and dorsiflexion melena Psych: Other: Pleasant and cooperative otherwise unable to truly assess patient's status H&P: Results Labs Labs: Laboratory Tests 03/16/25 16:29 03/16/25 17:45 03/16/25 03/16/25 03/16/25 16:29 17:33 17:45 WBC 7.0 RBC 3.20 L Hgb 8.7 L Hct 29.0 L MCV 90.6 MCH 27.2 MCHC 30.0 L RDW 19.5 H Plt Count 252 MPV 10.1 Immature Gran % (Auto) 0.6 H Neut % (Auto) 69.7 Lymph % (Auto) 14.6 L [place] % (Auto) 10.7 H Eos % (Auto) 3.7 Baso % (Auto) 0.7 Lymph # (Auto) 1.02 [place] # (Auto) 0.8 H Eos # (Auto) 0.3 Baso # (Auto) 0.1 Abs Immat Gran (auto) 0.04 H Absolute Neuts (auto) 4.9 Absolute Nucleated RBC 0.000 Nucleated RBC % 0.0 PT 19.0 H INR 1.6 APTT 36.6 Sodium 134 L Potassium 3.5 Chloride 95 L Carbon Dioxide 34 H Anion Gap 5 BUN 20 H Creatinine 3.63 H 3.70 H Estim Creat Clear Calc 15 15 Estimated GFR 12 L 12 L Glucose 135 H POC Capillary Glucose Lactic Acid 1.5 Calcium 8.3 L Total Bilirubin 0.6 AST 27 ALT 17 Alkaline Phosphatase 121 C-Reactive Protein 1.1 Total Protein 7.1 Albumin 3.5 Urine Color Dark yellow Urine Appearance Turbid H Urine pH 6.0 Ur Specific [place] 1.023 Urine Protein 3+ H Urine Glucose (UA) Negative Urine Ketones Trace H Ur Blood (Man) 2+ H Urine Nitrate Negative Urine Bilirubin Negative Urine Urobilinogen 1.0 Add Ur Microanalysis Reviewed Leukocyte Esterase Rfl 3+ H Urine RBC 6-10 H Urine WBC >100 H Ur Squamous Epith Cells Occasional Urine Bacteria None seen Urine Casts 6-10 03/17/25 08:03 WBC RBC Hgb Hct MCV MCH MCHC RDW Plt Count MPV Immature Gran % (Auto) Neut % (Auto) Lymph % (Auto) [place] % (Auto) Eos % (Auto) Baso % (Auto) Lymph # (Auto) [place] # (Auto) Eos # (Auto) Baso # (Auto) Abs Immat Gran (auto) Absolute Neuts (auto) Absolute Nucleated RBC Nucleated RBC % PT INR APTT Sodium Potassium Chloride Carbon Dioxide Anion Gap BUN Creatinine Estim Creat Clear Calc Estimated GFR Glucose POC Capillary Glucose 113 H Lactic Acid Calcium Total Bilirubin AST ALT Alkaline Phosphatase C-Reactive Protein Total Protein Albumin Urine Color Urine Appearance Urine pH Ur Specific [place] Urine Protein Urine Glucose (UA) Urine Ketones Ur Blood (Man) Urine Nitrate Urine Bilirubin Urine Urobilinogen Add Ur Microanalysis Leukocyte Esterase Rfl Urine RBC Urine WBC Ur Squamous Epith Cells Urine Bacteria Urine Casts Impressions Head CT 03/16/25 16:58 IMPRESSION: No acute intracranial hemorrhage or extra axial fluid collections. Encephalomalacia changes within the left MCA territory reflective of remote infarct. Chronic white matter microangiopathic changes in the periventricular white matter. All CT scans at this facility are performed using low dose modulation techniques as appropriate to perform exam including the following: automated exposure control; use of iterative reconstruction technique; adjustment of the mA and/or kV according to patient size (this includes techniques or standardized protocols for targeted exams where dose is matched to indication/reason for exam). Assessment and Plan Assessment and plan (1) Abnormal urinalysis: Code(s): R82.90 - Unspecified abnormal findings in urine Status: Acute (2) AMS (altered mental status): Qualifiers: Altered mental status type: unspecified Qualified Code(s): R41.82 - Altered mental status, unspecified Code(s): R41.82 - Altered mental status, unspecified Status: Acute (3) Femoral artery stenosis, right: Code(s): I70.201 - Unspecified atherosclerosis of [place] arteries of extremities, right leg Status: Acute (4) Generalized weakness: Code(s): R53.1 - Weakness Status: Acute (5) ESRD on hemodialysis: Code(s): N18.6 - End stage renal disease; Z99.2 - Dependence on renal dialysis Status: Acute Plan Patient has abnormal appearing urinalysis but no presence of bacteria, she is afebrile and does not have white count. I am less suspicious of active UTI but given the patient's acute altered mental status is placed on antibiotics to treat for possible infection given concern for metabolic encephalopathy. From what I can get from the patient's he actually seems to be understanding commands but is fatigued. In the past Gregoria as had difficulty word chose not to participate insert activities when she is fatigued. Unfortunately her was not at bedside to help provide any history in due to lateness of the hour I did not call him for further details. Likely but her electrolyte panel is stable. If she remains hospitalized on Sunday will need to consult Nephrology for dialysis management. Her blood pressures were moderately elevated just prior to my evaluation but she had not received 1 of her evening antihypertensives. Will resume her home antihypertensives and monitor. She does have insulin-dependent diabetes mellitus but she has been euglycemic. Will decrease her home long-acting insulin by 20% place her on low-dose sliding scale insulin with Accu-Cheks a.c. HS. Patient seems to be tolerating her home psychiatric and insomnia medications. These will be continued. 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 Will continue home inhalers. Will continue home anticoagulation. The patient's neurologic deficits are stable and CT of the brain did not show any acute process. Recurrent CVA seems less likely. Patient is already on maximum therapy for CVA printed with Eliquis and statin therapy. Patient has been admitted as observation status. MEDICAL DECISION MAKING NARRATIVE -Spoke with the ED provider in detail regarding patient's evaluation, workup and management -Patient seen and examined at bedside -Collaborated with patient's nurse at the bedside in detail and addressed all concerns -Labs, electrolytes, radiology, investigations and test results personally reviewed and interpreted unless otherwise specified -ED/Consult/Nursing/Ancilliary notes on the chart reviewed and appreciated -Spoke with patient at bedside and diagnosis and plan of care was discussed. All questions answered. Quality VTE Prophylaxis VTE prophylaxis: pharmacologic ordered (Continue home Eliquis.) Hospitalist MIPS Advance Care Plan I have confirmed that the patient's Advanced Care Plan is present, code status is documented, or surrogate decision maker is listed in patient medical record.: Yes Medication Reconciliation I have utilized all available resources to obtain, update and review the patients current medications (includes all prescriptions, OTC, herbals, cannabis, and nutritional supplements).: Yes
[2025-03-17] VITALS (12 sets, daily range): BP systolic 152–168; BP diastolic 53–70; PULSE 53–61; RESP 14–20; TEMP 36.3–36.4; O2SAT 95–100
[2025-03-17] MEDS: ATORVASTATIN 20 MG TABLET PO ×2 (00:13→20:25)
[2025-03-17] MEDS: APIXABAN 2.5 MG TABLET PO ×3 (00:13→20:25)
[2025-03-17] MEDS: LEVOTHYROXINE SODIUM 100 MCG TABLET 200 MCG PO (05:27)
[2025-03-17] MEDS: FLUTICASONE/SALMETEROL 115-21 MCG INHALER 1 PUFF 2 PUFF INHALATION ×2 (08:30→19:45)
--- NOTE | 2025-03-17 09:23 | PM.IMPN ---
Progress Note: A&P Assessment and Plan (1) AMS (altered mental status): Qualifiers: Altered mental status type: unspecified Qualified Code(s): R41.82 - Altered mental status, unspecified Code(s): R41.82 - Altered mental status, unspecified Status: Acute Assessment and Plan: Per patients the patient seemed to have difficulty figuring out how to pull up her pants then difficulty understanding how to get her food to her mouth. She was sitting on a stool at around 15:00 and it slid out from under. She struck the right side her head on the stool. Chronically on Eliquis for stroke prophylaxis. The patient does have baseline right-sided deficits and expressive aphasia that is unchanged from baseline. Head CT: No acute intracranial hemorrhage or extra axial fluid collections. Encephalomalacia changes within the left MCA territory reflective of remote infarct. Chronic white matter microangiopathic changes in the periventricular white matter. Per patient is back at baseline mentation. (2) Acute UTI: Code(s): N39.0 - Urinary tract infection, site not specified Status: Acute Assessment and Plan: - UA concerning for infection - UC obtained on 03/17: pending - previous micro reviewed 01/2025: ecoli pansensitive 08/2024: proteus mirabilis with resistance to cipro, macrobid, bactrim and cefazolin - started on rocpehin on 03/17 (3) Hypertension: Qualifiers: Hypertension type: unspecified Qualified Code(s): I10 - Essential (primary) hypertension Code(s): I10 - Essential (primary) hypertension Status: Chronic Assessment and Plan: Chronic, continue home medications - metoprolol 50 mg daily - imdur 30 mg daily - hydralazine 25 mg TID - blood pressures reviewed and stable, continue to monitor (4) ESRD on hemodialysis: Code(s): N18.6 - End stage renal disease; Z99.2 - Dependence on renal dialysis Status: Acute Assessment and Plan: Chronic Hemodialysis Sunday Nephrology consulted (5) Diabetes: Code(s): E11.9 - Type 2 diabetes mellitus without complications Status: Acute Assessment and Plan: - hypoglycemia protocol - POC blood glucose ACHS - home medication - lantus 18 units and SSI - correct regimen ordered - 14 units lantus (20% decrease from home dose) and low-dose sliding scale insulin - A1C 6.5 Time Spent With Patient Time with patient: 25 - 35 minutes Subjective Date/time seen: 03/17/25 09:23 Interval history: 74-year-old female with a complex past medical history including 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 Patient is pleasant lying comfortably in bed with at bedside. Unable to obtain a ROS given patients chronic aphasia. Per patient has returned to her baseline. Review of Systems Review of Systems: ROS unobtainable: Yes unobtainable due to mental status (chronic expressive aphasia ) Exam Narrative: AF HR 59 RR 18 Spo2 98 BP 152/70 General:female in no acute respiratory distress who is nontoxic appearing, lying semi recumbent in bed. HEENT: Normocephalic. Atraumatic. Extraocular movement intact. Sclera clear and anicteric. No facial asymmetry. Chest: Lungs are clear to auscultation bilaterally. No wheezes or crackles. CV: Heart was regular rate and rhythm. Abd: Abdomen was soft. Nontender. Nondistended. Positive bowel sounds. Ext: No clubbing, cyanosis or edema. Chronic wound to the right Achilles region without redness, warmth, or drainage. Neuro: Patient is alert. Chronic expressive aphasia. Moving all extremities. Chronic right upper extremity weakness. Objective Data Vital Signs Vital Signs: Vital Signs - 24 hr 03/16/25 16:00 03/16/25 17:33 03/16/25 18:20 Temperature 97.8 F Pulse Rate 56 L 53 L Respiratory Rate 18 16 Blood Pressure 119/47 L 124/73 Pulse Oximetry 98 Oxygen Delivery Room Air Room Air 03/16/25 18:20 03/16/25 19:01 03/16/25 20:23 Temperature Pulse Rate 52 L 58 L Respiratory Rate 20 20 Blood Pressure 111/71 142/39 H Pulse Oximetry 99 99 Oxygen Delivery Room Air 03/16/25 22:28 03/17/25 04:00 03/17/25 06:00 Temperature 97.2 F L 97.5 F L Pulse Rate 52 L 57 L 61 Respiratory Rate 18 18 Blood Pressure 188/60 H 152/70 H Pulse Oximetry 97 100 Oxygen Delivery 03/17/25 08:35 Temperature Pulse Rate Respiratory Rate Blood Pressure Pulse Oximetry 98 Oxygen Delivery Room Air Intake/Output Intake/Output: Intake & Output 03/14/25 03/15/25 03/16/25 03/17/25 23:59 23:59 23:59 23:59 Intake Total 480 Balance 480 Meds/Results Medications: Active Medications Generic Name Dose Route Start Last Admin Trade Name Freq PRN Reason Stop Dose Admin Albuterol 2.5 mg 03/16/25 23:13 Albuterol Sulfate Neb 2.5 Mg/3 Ml Inh INHALATION Q4-6H PRN Shortness Of Breath Or Wheezing Amiodarone HCl 200 mg 03/17/25 09:00 Amiodarone Hcl 200 Mg Tablet PO QAM ALINA Apixaban 2.5 mg 03/16/25 23:15 03/17/25 00:13 Apixaban 2.5 Mg Tablet PO 2.5 mg Q12HR ALINA Administration Atorvastatin Calcium 20 mg 03/16/25 23:15 03/17/25 00:13 Atorvastatin 20 Mg Tablet PO 20 mg HS ALINA Administration Calcium Acetate 667 mg 03/17/25 08:00 Calcium Acetate 667 Mg Tablet PO TIDWM ALINA Dextrose 12.5 gm 03/16/25 23:19 Dextrose 50% 25 Gm/50 Ml Syringe IV PUSH PRN PRN Hypoglycemia Protocol Escitalopram Oxalate 5 mg 03/17/25 09:00 Escitalopram Oxalate 5 Mg Tablet PO DAILY ALINA Glucagon 1 mg 03/16/25 23:19 Glucagon For Inj 1 Mg Vial IM PRN PRN Hypoglycemia Protocol Glucose 15 gm 03/16/25 23:19 Glucose Oral Gel 15 Gm Of Glucse In 37.5 Gm Tube PO PRN PRN Hypoglycemia Protocol Hydralazine HCl 25 mg 03/16/25 23:20 03/17/25 00:13 Hydralazine Hcl 25 Mg Tablet PO 25 mg TID ALINA Administration Ceftriaxone Sodium 1 gm/ 50 mls @ 100 mls/hr 03/17/25 18:00 Sodium Chloride IVPB Q24H ALINA Dextrose 1,000 mls @ 100 mls/hr 03/16/25 23:19 Dextrose 5% 1,000 Ml IVPB PRN PRN Hypoglycemia Protocol Insulin Aspart 2 - 5 units 03/17/25 08:00 03/17/25 08:25 Insulin Aspart (*Bkc) 100 Units/Ml SUB-Q Not Given TIDWM [facility] Protocol Insulin Glargine 14 units 03/17/25 18:00 Insulin Glargine (*Bkc) 100 Units/Ml SUB-Q QPM ALINA Isosorbide Mononitrate 30 mg 03/17/25 09:00 Isosorbide Mononitrate 30 Mg Tab.Er.24h PO DAILY [facility] Levothyroxine Sodium 200 mcg 03/17/25 06:30 03/17/25 05:27 Levothyroxine Sodium 100 Mcg Tablet PO 200 mcg DAILY@0630 [facility] Administration Lorazepam 0.5 mg 03/16/25 23:13 Lorazepam (*Crx) 0.5 Mg Tablet PO BID PRN Anxiety Metoprolol Succinate 50 mg 03/17/25 09:00 Metoprolol Succinate Ext Rel 50 Mg Tabcr PO QAM ALINA Montelukast Sodium 10 mg 03/17/25 09:00 Montelukast Sodium 10 Mg Tablet PO DAILY ALINA Ropinirole HCl 0.5 mg 03/16/25 23:20 03/17/25 00:14 Ropinirole Hcl 0.5 Mg Tablet PO 0.5 mg BID ALINA Administration Fluticasone/Salmeterol 2 puff 03/17/25 08:00 03/17/25 08:30 Fluticasone/Salmeterol 115-21 Mcg Inhaler 1 Puff INHALATION 2 puff Q12HRT ALINA Administration Trazodone HCl 50 mg 03/16/25 23:20 03/17/25 00:13 Trazodone Hcl 50 Mg Tablet PO 50 mg QHS ALINA Administration Radiology Results: ITS Impressions Head CT 03/16/25 16:58 IMPRESSION: No acute intracranial hemorrhage or extra axial fluid collections. Encephalomalacia changes within the left MCA territory reflective of remote infarct. Chronic white matter microangiopathic changes in the periventricular white matter. All CT scans at this facility are performed using low dose modulation techniques as appropriate to perform exam including the following: automated exposure control; use of iterative reconstruction technique; adjustment of the mA and/or kV according to patient size (this includes techniques or standardized protocols for targeted exams where dose is matched to indication/reason for exam). Labs Labs: Laboratory Results - last 24 hr 03/16/25 03/16/25 03/16/25 16:29 17:33 17:45 WBC 7.0 RBC 3.20 L Hgb 8.7 L Hct 29.0 L MCV 90.6 MCH 27.2 MCHC 30.0 L RDW 19.5 H Plt Count 252 MPV 10.1 Immature Gran % (Auto) 0.6 H Neut % (Auto) 69.7 Lymph % (Auto) 14.6 L [place] % (Auto) 10.7 H Eos % (Auto) 3.7 Baso % (Auto) 0.7 Lymph # (Auto) 1.02 [place] # (Auto) 0.8 H Eos # (Auto) 0.3 Baso # (Auto) 0.1 Abs Immat Gran (auto) 0.04 H Absolute Neuts (auto) 4.9 Absolute Nucleated RBC 0.000 Nucleated RBC % 0.0 PT 19.0 H INR 1.6 APTT 36.6 Sodium 134 L Potassium 3.5 Chloride 95 L Carbon Dioxide 34 H Anion Gap 5 BUN 20 H Creatinine 3.63 H 3.70 H Estim Creat Clear Calc 15 15 Estimated GFR 12 L 12 L Glucose 135 H POC Capillary Glucose Lactic Acid 1.5 Calcium 8.3 L Total Bilirubin 0.6 AST 27 ALT 17 Alkaline Phosphatase 121 C-Reactive Protein 1.1 Total Protein 7.1 Albumin 3.5 Urine Color Dark yellow Urine Appearance Turbid H Urine pH 6.0 Ur Specific [place] 1.023 Urine Protein 3+ H Urine Glucose (UA) Negative Urine Ketones Trace H Ur Blood (Man) 2+ H Urine Nitrate Negative Urine Bilirubin Negative Urine Urobilinogen 1.0 Add Ur Microanalysis Reviewed Leukocyte Esterase Rfl 3+ H Urine RBC 6-10 H Urine WBC >100 H Ur Squamous Epith Cells Occasional Urine Bacteria None seen Urine Casts 6-10 03/17/25 08:03 WBC RBC Hgb Hct MCV MCH MCHC RDW Plt Count MPV Immature Gran % (Auto) Neut % (Auto) Lymph % (Auto) [place] % (Auto) Eos % (Auto) Baso % (Auto) Lymph # (Auto) [place] # (Auto) Eos # (Auto) Baso # (Auto) Abs Immat Gran (auto) Absolute Neuts (auto) Absolute Nucleated RBC Nucleated RBC % PT INR APTT Sodium Potassium Chloride Carbon Dioxide Anion Gap BUN Creatinine Estim Creat Clear Calc Estimated GFR Glucose POC Capillary Glucose 113 H Lactic Acid Calcium Total Bilirubin AST ALT Alkaline Phosphatase C-Reactive Protein Total Protein Albumin Urine Color Urine Appearance Urine pH Ur Specific [place] Urine Protein Urine Glucose (UA) Urine Ketones Ur Blood (Man) Urine Nitrate Urine Bilirubin Urine Urobilinogen Add Ur Microanalysis Leukocyte Esterase Rfl Urine RBC Urine WBC Ur Squamous Epith Cells Urine Bacteria Urine Casts Quality VTE Prophylaxis VTE prophylaxis: pharmacologic ordered
[2025-03-17 10:08] LABS: Hematocrit 30.6 % (37.0-47.0); Hemoglobin 9.0 g/dL (12.0-15.0); Mean Corpuscular HGB Conc 29.4 g/dl (32-36); Mean Corpuscular Hemoglobin 27.3 pg (26-34); Mean Corpuscular Volume 92.7 fl (80-100); Platelet Count Result 269 k/mm3 (150-375); Red Blood Count 3.30 M/mm3 (4.2-5.4); White Blood Count 7.4 K/mm3 (4.5-10.0)
[2025-03-17 10:35] LABS: Alanine Aminotransferase 15 U/L (6-35); Albumin Level 3.6 g/dL (3.5-5.1); Alkaline Phosphatase 120 U/L (38-126); Anion Gap 7 mmol/L (4-12); Aspartate Amino Transferase 25 U/L (14-36); Bilirubin,Total 0.8 mg/dL (0.2-1.3); Blood Urea Nitrogen 27 mg/dL (7-17); Calcium 8.3 mg/dL (8.4-10.2); Carbon Dioxide 32 mmol/L (22-30); Chloride 96 mmol/L (98-107); Estimated CRCL calculation 11 ml/min; Estimated Glomerular Filt Rate 9; Glucose 144 mg/dL (65-110); Potassium 4.0 mmol/L (3.4-5.0); Sodium 135 mmol/L (137-145); Total Protein 7.1 g/dL (6.3-8.2)
[2025-03-17] MEDS: CALCIUM ACETATE 667 MG TABLET PO ×3 (10:39→17:35)
[2025-03-17] MEDS: ESCITALOPRAM OXALATE 5 MG TABLET PO (10:40)
[2025-03-17] MEDS: METOPROLOL SUCCINATE EXT REL 50 MG TABCR PO (10:41)
[2025-03-17] MEDS: ISOSORBIDE MONONITRATE 30 MG TAB.ER.24H PO (10:41)
[2025-03-17] MEDS: AMIODARONE HCL 200 MG TABLET PO (10:41)
[2025-03-17] MEDS: MONTELUKAST SODIUM 10 MG TABLET PO (10:42)
--- NOTE | 2025-03-17 11:12 | PM.CNNEP ---
Assessment and Plan Assessment and plan (1) End stage renal disease: Code(s): N18.6 - End stage renal disease Status: Chronic Assessment and Plan: HD tomorrow continue M/W/F outpatient dialysis schedule follow electrolytes, volume status, and clearance (2) AMS (altered mental status): Qualifiers: Altered mental status type: unspecified Qualified Code(s): R41.82 - Altered mental status, unspecified Code(s): R41.82 - Altered mental status, unspecified Status: Acute Assessment and Plan: suspected cause being #3 appears to be doing better at this time head CT negative follow mentation (3) UTI (urinary tract infection): Code(s): N39.0 - Urinary tract infection, site not specified Status: Ruled-out Assessment and Plan: admission UA highly suggestive follow culture data on antibiotics (4) Anemia: Code(s): D64.9 - Anemia, unspecified Status: Chronic Assessment and Plan: due to ESRD RADHA/Epogen with HD follow trend of H/H (5) Hypertension: Qualifiers: Hypertension type: unspecified Qualified Code(s): I10 - Essential (primary) hypertension Code(s): I10 - Essential (primary) hypertension Status: Chronic Assessment and Plan: reasonable control resume home BP medications follow trend of hemodynamics (6) Type 2 diabetes mellitus with hyperglycemia: Qualifiers: Diabetes mellitus correction insulin use: with 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 Thank you for allowing me to participate in the care of this patient. History of Present Illness Reason for Consult Consult date: 03/17/25 Reason for consult: end stage renal disease Chief Complaint Chief complaint: Altered mental status, UTI History of Present Illness Narrative: Most of the history that I have obtained is review the electronic medical record as well as discussion with the physician/nurses involved in the patient's care and her at bedside as it is difficult to get a full and complete history from the patient due to her expressive aphasia secondary to her previous/history of CVAs. The patient is a 74-year-old female with a past medical history as outlined below who presented to [facility] Emergency Room for further evaluation of altered mental status. The patient completed her scheduled dialysis treatment yesterday without any issue or problems. When she came back home however, her noted that she seemed confused in comparison to her baseline. She apparently was having difficulty doing tasks that she usually has no problem with like pulling up her pants and eating food. Apparently, due to this confusion, she had a ground level fall out of a stool and struck the right posterior aspect of her head with the was no apparent loss of consciousness. Given this change in her baseline mentation, she presented to the emergency room for further assessment. It should be noted the patient was just recently hospitalized earlier this month for lower extremity cellulitis and a urinary tract infection which responded to supportive therapy and antibiotics. Workup and evaluation emergency room demonstrated the patient to be hemodynamically stable and afebrile. Routine testing demonstrated white blood cell count of 7.0, hemoglobin 8.7, hematocrit 29.0, platelet count of 252, sodium 134, potassium 3.5, chloride 95, bicarb 34, BUN 20, creatinine 3.63, glucose 135, lactic acid 1.5, calcium 8.3, normal LFTs, and an albumin 3.5. Her urinalysis was significant for 3+ protein, 2+ blood, 3+ leukocyte esterase, 6-10 red blood cells,and greater than [address] scan of the head demonstrated no acute intracranial pathology other than changes consistent with her previous CVA and chronic white matter microangiopathic changes in the periventricular white matter. Given the assumption that the patient had another acute urinary tract infection possibly precipitating her altered mentation, appropriate cultures were obtained and she was started on IV antibiotics. She was subsequently admitted to the hospital for further evaluation and therapy. Renal consultation was requested due to her end-stage renal disease. The patient normally dialyzes on a Sunday, Sunday, Sunday schedule at [facility] under the care of Dr. Jame Dumont. From a dialysis perspective, she has been doing reasonably well and compliant with her treatments. She does have issues and problems with significant fluid gains in between her dialysis sessions which can result in difficulty achieving her dry weight. This is further complicated by the fact that sometimes the patient is unable stay still when she does her dialysis treatments and since has a AVF for her dialysis access, there is always a concern that she is at risk for pulling out her needles so this leads to her treatments ending early. Her last dialysis treatment was yesterday, Sunday, on 03/16, at her outpatient dialysis clinic. She is next due for dialysis tomorrow. Currently, at the time my visit, she is resting comfortably in no apparent distress. Review of Systems Review of Systems: As per HPI. [facility] Past Medical History Medical History (Updated 03/17/25 @ 13:13 by Ilsa Henley PA-C) Femoral artery stenosis, right Left-sided cerebrovascular accident (CVA) (01/04/24) With residual left-sided visual neglect, profound expressive aphasia and right-sided hemiplegia ESRD on hemodialysis (02/17/22) Bilateral primary osteoarthritis of knee Chronic anticoagulation Obstructive sleep apnea Paroxysmal atrial fibrillation Hypothyroidism Insulin dependent type 2 diabetes mellitus Generalized anxiety disorder Chronic obstructive pulmonary disease Renal osteodystrophy DVT of lower extremity (deep venous thrombosis) Asthma-COPD overlap syndrome 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 Chronic diastolic (congestive) heart failure Coronary artery disease involving [place] heart without angina pectoris Depression GERD without esophagitis Peripheral polyneuropathy Surgical History Surgical History History of tracheostomy (04/24/22) With subsequent removal History of cataract extraction History of tonsillectomy History of cholecystectomy History of gastrostomy tube placement and removal Family History Family History Father Hypertension Family history of coronary artery disease Sibling Hypertension Family history of coronary artery disease Mother Cerebrovascular accident Other Asthma Depression Family history of Alzheimer's disease Family history of arthritis Family history of cardiovascular disease Family history of lymphoma Family history of obesity Family history of seizure disorder Social History Social History (Updated 03/17/25 @ 09:13 by Gwen Jaimes DO) Social History: Surrogate medical decision maker: Anjum (spouse) or Gwen (daughter) Kyra. Code status: Do not intubate Smoking packs per day: 1 Smoking cigarettes per day: 20.0 Years smoked: 22 Smoking pack-years: 22.00 Tobacco type: cigarettes Second hand tobacco smoke exposure: No Smoking end date: 05/07/84 Alcohol intake: never Alcohol use details: special occasions Substance use: never Substance use type: does not use Last use: 01/05/23 Do You Feel Safe in your Home?: Yes Lack of Transportation: No Lack of Food: Never True Current Housing: I Have Housing Concerned About Future Housing: No Difficulty Paying Gas/Electric Bills: No Difficulty Paying for Meds: No Currently Unemployed: No Education: High School Diploma/GED Difficulty w/ Childcare or Family Care: No Living arrangements: with family Occupation/Education: retired Spiritual care concerns: No Meds Home Medications and Allergies Home Medications ?Medication ?Instructions ?Recorded ?Confirmed ?Type albuterol sulfate 2.5 mg/3 mL 2.5 mg (3 mL) inhalation Q4-6H PRN 07/10/23 03/16/25 Rx (0.083 %) solution for nebulization shortness of breath or wheezing #90 mL Ventolin HFA 90 mcg/actuation See Rx Instructions .Route 05/20/24 03/16/25 Rx aerosol inhaler (albuterol sulfate) .COMPLEX #18 grams insulin aspart U-100 100 unit/mL See Rx Instructions .Route .COMPLEX 05/20/24 03/16/25 History (3 mL) subcutaneous pen (Novolog FlexPen U-100 Insulin aspart) metoprolol succinate 50 mg 50 mg PO QAM #90 tabs 05/20/24 03/16/25 Rx tablet,extended release 24 hr montelukast 10 mg tablet 10 mg PO DAILY #90 tabs 07/04/24 03/16/25 Rx budesonide-formoterol HFA 160 2 puff inhalation Q12H #10.2 grams 07/17/24 03/16/25 Rx mcg-4.5 mcg/actuation aerosol inhaler amiodarone 200 mg tablet 200 mg PO QAM 09/02/24 03/16/25 History atorvastatin 20 mg tablet (Lipitor) 20 mg PO HS #90 tabs 11/03/24 03/16/25 Rx trazodone 50 mg tablet 50 mg PO QHS #30 tabs 11/03/24 03/16/25 Rx escitalopram oxalate 5 mg tablet 5 mg PO DAILY #90 tabs 11/04/24 03/16/25 Rx (Lexapro) hydralazine 25 mg tablet 25 mg PO TID #270 tabs 12/04/24 03/16/25 Rx isosorbide mononitrate 30 mg 30 mg PO DAILY #90 tabs 03/02/25 03/16/25 Rx tablet,extended release 24 hr apixaban 2.5 mg tablet (Eliquis) 2.5 mg PO BID 03/08/25 03/16/25 History amoxicillin 500 mg-potassium 1 tablet PO QHS #4 tabs 03/10/25 03/16/25 Rx clavulanate 125 mg tablet (Augmentin) insulin glargine 100 unit/mL (3 18 unit (0.18 mL) subcut QPM #15 mL 03/12/25 03/16/25 Rx mL) subcutaneous pen (Lantus Solostar U-100 Insulin) calcium acetate 667 mg tablet 667 mg PO DAILY 03/16/25 03/16/25 History levothyroxine 200 mcg capsule 200 mcg PO DAILY 03/16/25 03/16/25 History lorazepam 0.5 mg tablet (Ativan) 0.5 mg PO BID PRN anxiety #60 tabs 03/16/25 03/16/25 Rx ropinirole 0.5 mg tablet 0.5 mg PO BID 03/16/25 03/16/25 History Allergies Allergy/AdvReac Type Severity Reaction Status Date / Time nickel Allergy Intermediate hives and Verified 03/16/25 20:28 itchy rash Sulfa (Sulfonamide Allergy Intermediate Urticaria Verified 03/16/25 20:28 Antibiotics) and hives Calcium Channel Blocking AdvReac Intermediate STATES Verified 03/16/25 20:28 Agents-Dih CANNOT TAKE SINCE SHE HAS ASTHMA diphenhydramine AdvReac Intermediate restless Verified 03/16/25 20:28 legs nifedipine AdvReac Intermediate palpitation Verified 03/16/25 20:28 s [id number] Reductase AdvReac Intermediate muscle Verified 03/16/25 20:28 Inhibitor ([id number]-Xos cramps Reductase Inhibitor) Vital Signs Vital Signs Temp Pulse Resp BP Pulse Ox O2 Del Method 03/17/25 12:00 59 L 03/17/25 10:41 59 L 03/17/25 10:41 59 L 03/17/25 08:35 98 Room Air 03/17/25 08:00 55 L 03/17/25 06:00 97.5 F L 61 18 152/70 H 100 03/17/25 04:00 57 L 03/16/25 22:28 97.2 F L 52 L 18 188/60 H 97 03/16/25 20:23 Room Air 03/16/25 19:01 58 L 20 142/39 H 99 03/16/25 18:20 52 L 20 111/71 99 03/16/25 18:20 Room Air 03/16/25 17:33 53 L 16 124/73 03/16/25 16:00 97.8 F 56 L 18 119/47 L 98 Room Air Exam Narrative: GENERAL APPEARANCE: elderly but well developed well nourished female in no acute distress HEENT: normocephalic, atraumatic, normal conjunctiva and sclera, nares patient NECK: no lymphadenopathy, thyromegaly, or JVD MOUTH: normal lips, teeth, and gums CARDIOVASCULAR: RRR, normal S1 and S2, no rub RESPIRATORY: clear anteriorly; decreased at bases ABDOMEN: soft, nontender, nondistended, positive bowel sounds present EXTREMITIES: no evidence of cyanosis, clubbing, or edema NEUROLOGICAL: awake and alert; expressive aphasia present; noted right sided weakness Results Lab Results 03/17/25 10:00 03/17/25 10:00 Lab results: Most recent lab results Calcium 8.3 mg/dL (8.4-10.2) L 03/17/25 10:00
--- NOTE | 2025-03-17 15:28 | PCOTNOTE ---
Attempted to see for OT evaluation this afternoon. Patient drowsy and not following commands. When attempting to help her to the edge of the bed she resists attempts and covers herself back up. Will continue to attempt.
[2025-03-17] MEDS: cefTRIAXone 1 GM in SODIUM CHLORIDE 0.9% IV 50 ML 100 ML IVPB (17:36)
[2025-03-17] MEDS: INSULIN GLARGINE (*BKC) 100 UNITS/ML 14 UNITS SUB-Q (17:51)
[2025-03-17] MEDS: ACETAMINOPHEN 325 MG TABLET 650 MG PO (20:25)
[2025-03-18] VITALS (29 sets, daily range): BP systolic 139–188; BP diastolic 52–74; PULSE 50–60; RESP 12–18; TEMP 36.4–37; O2SAT 95–100
[2025-03-18 04:42] LABS: Hematocrit 29.4 % (37.0-47.0); Hemoglobin 8.7 g/dL (12.0-15.0); Mean Corpuscular HGB Conc 29.6 g/dl (32-36); Mean Corpuscular Hemoglobin 26.9 pg (26-34); Mean Corpuscular Volume 91.0 fl (80-100); Platelet Count Result 256 k/mm3 (150-375); Red Blood Count 3.23 M/mm3 (4.2-5.4); White Blood Count 6.3 K/mm3 (4.5-10.0)
[2025-03-18 04:56] LABS: Alanine Aminotransferase 15 U/L (6-35); Albumin Level 3.4 g/dL (3.5-5.1); Alkaline Phosphatase 108 U/L (38-126); Anion Gap 8 mmol/L (4-12); Aspartate Amino Transferase 21 U/L (14-36); Bilirubin,Total 0.7 mg/dL (0.2-1.3); Blood Urea Nitrogen 33 mg/dL (7-17); Calcium 8.4 mg/dL (8.4-10.2); Carbon Dioxide 32 mmol/L (22-30); Chloride 96 mmol/L (98-107); Estimated CRCL calculation 9 ml/min; Estimated Glomerular Filt Rate 7; Glucose 135 mg/dL (65-110); Potassium 4.0 mmol/L (3.4-5.0); Sodium 136 mmol/L (137-145); Total Protein 6.9 g/dL (6.3-8.2)
[2025-03-18] MEDS: LEVOTHYROXINE SODIUM 100 MCG TABLET 200 MCG PO (05:33)
[2025-03-18] MEDS: FLUTICASONE/SALMETEROL 115-21 MCG INHALER 1 PUFF 2 PUFF INHALATION (07:58)
--- NOTE | 2025-03-18 08:24 | PM.IMPN ---
Progress Note: A&P Assessment and Plan (1) AMS (altered mental status): Qualifiers: Altered mental status type: unspecified Qualified Code(s): R41.82 - Altered mental status, unspecified Code(s): R41.82 - Altered mental status, unspecified Status: Acute Assessment and Plan: Per patients the patient seemed to have difficulty figuring out how to pull up her pants then difficulty understanding how to get her food to her mouth. She was sitting on a stool at around 15:00 and it slid out from under. She struck the right side her head on the stool. Chronically on Eliquis for stroke prophylaxis. The patient does have baseline right-sided deficits and expressive aphasia that is unchanged from baseline. Head CT: No acute intracranial hemorrhage or extra axial fluid collections. Encephalomalacia changes within the left MCA territory reflective of remote infarct. Chronic white matter microangiopathic changes in the periventricular white matter. Patient remains at her baseline mental status. (2) Acute UTI: Code(s): N39.0 - Urinary tract infection, site not specified Status: Acute Assessment and Plan: - UA concerning for infection - UC obtained on 03/17: negative - previous micro reviewed 01/2025: ecoli pansensitive 08/2024: proteus mirabilis with resistance to cipro, macrobid, bactrim and cefazolin - started on rocpehin on 03/17, discontinued on 03/18. Given patients increased confusion concerning for metabolic encephalopathy as no noted abnormalities on imaging and improvement with antibiotics will continue to treat for a UTI since patient cannot disclose if symptomatic. Will transition to oral antibiotics in the am. (3) Hypertension: Qualifiers: Hypertension type: unspecified Qualified Code(s): I10 - Essential (primary) hypertension Code(s): I10 - Essential (primary) hypertension Status: Chronic Assessment and Plan: Chronic, continue home medications - metoprolol 50 mg daily - imdur 30 mg daily - hydralazine 25 mg TID - blood pressures reviewed and stable, continue to monitor (4) ESRD on hemodialysis: Code(s): N18.6 - End stage renal disease; Z99.2 - Dependence on renal dialysis Status: Acute Assessment and Plan: Chronic Hemodialysis Sunday Nephrology consulted (5) Diabetes: Code(s): E11.9 - Type 2 diabetes mellitus without complications Status: Acute Assessment and Plan: - hypoglycemia protocol - POC blood glucose ACHS - home medication - lantus 18 units and SSI - correct regimen ordered - 14 units lantus (20% decrease from home dose) and low-dose sliding scale insulin - A1C 6.5 Time Spent With Patient Time with patient: 25 - 35 minutes Subjective Date/time seen: 03/18/25 08:24 Interval history: 74-year-old female with a complex past medical history including 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 Patient is pleasant lying in bed. Unable to obtain a reliable ROS given patients chornic aphasia. No acute events overnight. Review of Systems Review of Systems: ROS unobtainable: Yes unobtainable due to mental status (chronic expressive aphasia ) Exam Narrative: AF HR 55 RR18 SpO2 98 BP 161/67 General:female in no acute respiratory distress who is nontoxic appearing, lying semi recumbent in bed. HEENT: Normocephalic. Atraumatic. Extraocular movement intact. Sclera clear and anicteric. No facial asymmetry. Chest: Lungs are clear to auscultation bilaterally. No wheezes or crackles. CV: Heart was regular rate and rhythm. Abd: Abdomen was soft. Nontender. Nondistended. Positive bowel sounds. Ext: No clubbing, cyanosis or edema. Chronic wound to the right Achilles region without redness, warmth, or drainage. Neuro: Patient is alert. Chronic expressive aphasia. Moving all extremities. Chronic right upper extremity weakness. Objective Data Vital Signs Vital Signs: Vital Signs - 24 hr 03/17/25 08:35 03/17/25 09:30 03/17/25 10:41 Temperature Pulse Rate 59 L Respiratory Rate Blood Pressure Pulse Oximetry 98 Oxygen Delivery Room Air Room Air Fraction of Inspired Oxygen 03/17/25 10:41 03/17/25 12:00 03/17/25 14:00 Temperature 97.6 F Pulse Rate 59 L 59 L 56 L Respiratory Rate 14 Blood Pressure 153/53 H Pulse Oximetry 99 Oxygen Delivery Fraction of Inspired Oxygen 03/17/25 16:00 03/17/25 19:45 03/17/25 19:47 Temperature Pulse Rate 53 L 57 L 57 L Respiratory Rate 20 20 Blood Pressure Pulse Oximetry 97 Oxygen Delivery Room Air Fraction of Inspired Oxygen 21 03/17/25 20:25 03/17/25 20:25 03/17/25 22:00 Temperature 97.3 F L Pulse Rate 58 L 54 L Respiratory Rate 16 Blood Pressure 168/67 H Pulse Oximetry 95 Oxygen Delivery Room Air Fraction of Inspired Oxygen 03/18/25 00:00 03/18/25 04:00 03/18/25 06:00 Temperature 97.6 F Pulse Rate 55 L 53 L 50 L Respiratory Rate 16 Blood Pressure 161/67 H Pulse Oximetry 100 Oxygen Delivery Fraction of Inspired Oxygen Intake/Output Intake/Output: Intake & Output 03/15/25 03/16/25 03/17/25 03/18/25 23:59 23:59 23:59 23:59 Intake Total 1080 300 Output Total 0 Balance 1080 300 Meds/Results Medications: Active Medications Generic Name Dose Route Start Last Admin Trade Name Freq PRN Reason Stop Dose Admin Acetaminophen 650 mg 03/17/25 20:15 03/17/25 20:25 Acetaminophen 325 Mg Tablet PO 650 mg Q6H PRN Administration Mild Pain (1-3) or Fever Albuterol 2.5 mg 03/16/25 23:13 Albuterol Sulfate Neb 2.5 Mg/3 Ml Inh INHALATION Q4-6H PRN Shortness Of Breath Or Wheezing Amiodarone HCl 200 mg 03/17/25 09:00 03/17/25 10:41 Amiodarone Hcl 200 Mg Tablet PO 200 mg QAM ALINA Administration Apixaban 2.5 mg 03/16/25 23:15 03/17/25 20:25 Apixaban 2.5 Mg Tablet PO 2.5 mg Q12HR ALINA Administration Atorvastatin Calcium 20 mg 03/16/25 23:15 03/17/25 20:25 Atorvastatin 20 Mg Tablet PO 20 mg HS ALINA Administration Calcium Acetate 667 mg 03/17/25 08:00 03/17/25 17:35 Calcium Acetate 667 Mg Tablet PO 667 mg TIDWM ALINA Administration Dextrose 12.5 gm 03/16/25 23:19 Dextrose 50% 25 Gm/50 Ml Syringe IV PUSH PRN PRN Hypoglycemia Protocol Epoetin Jorge Alberto-epbx 10,000 units 03/18/25 18:40 Epoetin Jorge Alberto-Epbx 10,000 Units/Ml Vial IV PUSH 03/18/25 18:41 ONCE ONE Escitalopram Oxalate 5 mg 03/17/25 09:00 03/17/25 10:40 Escitalopram Oxalate 5 Mg Tablet PO 5 mg DAILY ALINA Administration Glucagon 1 mg 03/16/25 23:19 Glucagon For Inj 1 Mg Vial IM PRN PRN Hypoglycemia Protocol Glucose 15 gm 03/16/25 23:19 Glucose Oral Gel 15 Gm Of Glucse In 37.5 Gm Tube PO PRN PRN Hypoglycemia Protocol Hydralazine HCl 25 mg 03/16/25 23:20 03/17/25 17:34 Hydralazine Hcl 25 Mg Tablet PO 25 mg TID ALINA Administration Ceftriaxone Sodium 1 gm/ 50 mls @ 100 mls/hr 03/17/25 18:00 03/17/25 17:36 Sodium Chloride IVPB 100 mls/hr Q24H ALINA Administration Dextrose 1,000 mls @ 100 mls/hr 03/16/25 23:19 Dextrose 5% 1,000 Ml IVPB PRN PRN Hypoglycemia Protocol Albumin Human 50 mls @ 999 mls/hr 03/18/25 06:40 Albutein IVPB 03/19/25 06:39 Q10M PRN HYPOTENSION Insulin Aspart 2 - 5 units 03/17/25 08:00 03/17/25 17:35 Insulin Aspart (*Bkc) 100 Units/Ml SUB-Q Not Given TIDWM ALINA Protocol Insulin Glargine 14 units 03/17/25 18:00 03/17/25 17:51 Insulin Glargine (*Bkc) 100 Units/Ml SUB-Q 14 units QPM ALINA Administration Isosorbide Mononitrate 30 mg 03/17/25 09:00 03/17/25 10:41 Isosorbide Mononitrate 30 Mg Tab.Er.24h PO 30 mg DAILY ALINA Administration Levothyroxine Sodium 200 mcg 03/17/25 06:30 03/18/25 05:33 Levothyroxine Sodium 100 Mcg Tablet PO 200 mcg DAILY@0630 ALINA Administration Lidocaine/Prilocaine 1 each 03/18/25 06:43 Lidocaine/Prilocaine Cream 2.5-2.5% Tube TOPICAL WITH DIALYSIS PRN for dialysis Protocol Lorazepam 0.5 mg 03/16/25 23:13 Lorazepam (*Crx) 0.5 Mg Tablet PO BID PRN Anxiety Metoprolol Succinate 50 mg 03/17/25 09:00 03/17/25 10:41 Metoprolol Succinate Ext Rel 50 Mg Tabcr PO 50 mg QAM ALINA Administration Montelukast Sodium 10 mg 03/17/25 09:00 03/17/25 10:42 Montelukast Sodium 10 Mg Tablet PO 10 mg DAILY ALINA Administration Ropinirole HCl 0.5 mg 03/16/25 23:20 03/17/25 17:35 Ropinirole Hcl 0.5 Mg Tablet PO 0.5 mg BID ALINA Administration Fluticasone/Salmeterol 2 puff 03/17/25 08:00 03/18/25 07:58 Fluticasone/Salmeterol 115-21 Mcg Inhaler 1 Puff INHALATION 2 puff Q12HRT ALINA Administration Trazodone HCl 50 mg 03/16/25 23:20 03/17/25 20:25 Trazodone Hcl 50 Mg Tablet PO 50 mg QHS ALINA Administration Radiology Results: ITS Impressions Head CT 03/16/25 16:58 IMPRESSION: No acute intracranial hemorrhage or extra axial fluid collections. Encephalomalacia changes within the left MCA territory reflective of remote infarct. Chronic white matter microangiopathic changes in the periventricular white matter. All CT scans at this facility are performed using low dose modulation techniques as appropriate to perform exam including the following: automated exposure control; use of iterative reconstruction technique; adjustment of the mA and/or kV according to patient size (this includes techniques or standardized protocols for targeted exams where dose is matched to indication/reason for exam). Labs Labs: Laboratory Results - last 24 hr 03/17/25 03/17/25 03/17/25 10:00 11:26 16:28 WBC 7.4 RBC 3.30 L Hgb 9.0 L Hct 30.6 L MCV 92.7 MCH 27.3 MCHC 29.4 L RDW 19.9 H Plt Count 269 MPV 9.8 Sodium 135 L Potassium 4.0 Chloride 96 L Carbon Dioxide 32 H Anion Gap 7 BUN 27 H Creatinine 4.51 H Estim Creat Clear Calc 11 Estimated GFR 9 L Glucose 144 H POC Capillary Glucose 190 H 180 H Calcium 8.3 L Total Bilirubin 0.8 AST 25 ALT 15 Alkaline Phosphatase 120 Total Protein 7.1 Albumin 3.6 03/17/25 03/18/25 03/18/25 20:31 04:24 08:00 WBC 6.3 RBC 3.23 L Hgb 8.7 L Hct 29.4 L MCV 91.0 MCH 26.9 MCHC 29.6 L RDW 19.8 H Plt Count 256 MPV 9.5 Sodium 136 L Potassium 4.0 Chloride 96 L Carbon Dioxide 32 H Anion Gap 8 BUN 33 H Creatinine 5.69 H Estim Creat Clear Calc 9 Estimated GFR 7 L Glucose 135 H POC Capillary Glucose 196 H 121 H Calcium 8.4 Total Bilirubin 0.7 AST 21 ALT 15 Alkaline Phosphatase 108 Total Protein 6.9 Albumin 3.4 L Quality VTE Prophylaxis VTE prophylaxis: pharmacologic ordered
[2025-03-18] MEDS: CALCIUM ACETATE 667 MG TABLET PO ×3 (08:32→17:40)
[2025-03-18] MEDS: MONTELUKAST SODIUM 10 MG TABLET PO (08:32)
[2025-03-18] MEDS: METOPROLOL SUCCINATE EXT REL 50 MG TABCR PO (08:32)
[2025-03-18] MEDS: AMIODARONE HCL 200 MG TABLET PO (08:32)
[2025-03-18] MEDS: ISOSORBIDE MONONITRATE 30 MG TAB.ER.24H PO (08:32)
[2025-03-18] MEDS: APIXABAN 2.5 MG TABLET PO ×2 (08:32→20:08)
[2025-03-18] MEDS: ESCITALOPRAM OXALATE 5 MG TABLET PO (08:34)
--- NOTE | 2025-03-18 14:35 | P.PNNP_ITS ---
Progress Note: A&P Assessment and Plan (1) End stage renal disease: Code(s): N18.6 - End stage renal disease Status: Chronic Assessment and Plan: * HD today * continue M/W/F outpatient dialysis schedule * follow electrolytes, volume status, and clearance (2) AMS (altered mental status): Qualifiers: Altered mental status type: unspecified Qualified Code(s): R41.82 - Altered mental status, unspecified Code(s): R41.82 - Altered mental status, unspecified Status: Acute Assessment and Plan: * suspected cause being #3 * appears to be doing better at this time * head CT negative * follow mentation (3) UTI (urinary tract infection): Code(s): N39.0 - Urinary tract infection, site not specified Status: Acute Assessment and Plan: * admission UA highly suggestive * follow culture data - negative to date * on antibiotics * despite negative culture, clinical improvement in #2 noted with antibiotic therapy (4) Anemia: Code(s): D64.9 - Anemia, unspecified Status: Chronic Assessment and Plan: * due to ESRD * RADHA/Epogen with HD * follow trend of H/H (5) Hypertension: Qualifiers: Hypertension type: unspecified Qualified Code(s): I10 - Essential (primary) hypertension Code(s): I10 - Essential (primary) hypertension Status: Chronic Assessment and Plan: * reasonable control * resume home BP medications * follow trend of hemodynamics (6) Type 2 diabetes mellitus with hyperglycemia: Qualifiers: Diabetes mellitus intermission coordinator insulin use: with chcf use Qualified Code(s): E11.65 - Type 2 diabetes mellitus with hyperglycemia; Z79.4 - alf (current) use of insulin Code(s): E11.65 - Type 2 diabetes mellitus with hyperglycemia Status: Chronic Assessment and Plan: * follow accu-cheks * glycemic control per hospitalist Will continue to follow. L Subjective Date/time seen: 03/18/25 14:35 Interval history: Follow-up for end stage renal disease on hemodialysis. Tolerating dialysis treatment at the time of my visit (seen on HD at 2:25pm); no apparent distress noted when seen; no acute issues/events overnight or earlier this morning. Exam 2 Narrative: General: elderly but WD/WN female in NAD Heart: normal S1 and S2; no rub Lungs: clear anteriorly; decreased at bases Abdomen: soft, nontender, nondistended, positive bowel sounds Extremities: no cyanosis or clubbing; trace edema Skin: warm and dry Objective Data Vital Signs Vital Signs: Vital Signs Temp Pulse Resp BP Pulse Ox O2 Del Method FiO2 03/18/25 14:30 55 L 166/72 H 03/18/25 14:15 54 L 182/68 H 03/18/25 14:00 54 L 185/66 H 03/18/25 13:45 56 L 153/54 H 03/18/25 13:30 56 L 139/74 03/18/25 13:18 57 L 158/60 H 03/18/25 13:07 97.9 F 58 L 16 148/59 H 97 03/18/25 12:05 55 L 03/18/25 09:15 Room Air 03/18/25 09:03 Room Air 03/18/25 08:32 55 L 03/18/25 08:32 55 L 03/18/25 08:05 55 L 03/18/25 07:58 52 L 18 03/18/25 07:58 52 L 18 96 Room Air 03/18/25 06:00 97.6 F 50 L 16 161/67 H 100 03/18/25 04:00 53 L 03/18/25 00:00 55 L 03/17/25 22:00 97.3 F L 54 L 16 168/67 H 95 03/17/25 20:25 58 L 03/17/25 20:25 Room Air 03/17/25 19:47 57 L 20 97 Room Air 03/17/25 19:45 57 L 20 Intake/Output Intake/Output: Intake & Output 03/15/25 03/16/25 03/17/25 03/18/25 23:59 23:59 23:59 23:59 Intake Total 1130 780 Output Total 0 Balance 1130 780 Meds/Results Medications: Active Medications Generic Name Dose Route Start Last Admin Trade Name Freq PRN Reason Stop Dose Admin Acetaminophen 650 mg 03/17/25 20:15 03/17/25 20:25 Acetaminophen 325 Mg Tablet PO 650 mg Q6H PRN Administration Mild Pain (1-3) or Fever Albuterol 2.5 mg 03/16/25 23:13 Albuterol Sulfate Neb 2.5 Mg/3 Ml Inh INHALATION Q4-6H PRN Shortness Of Breath Or Wheezing Amiodarone HCl 200 mg 03/17/25 09:00 03/18/25 08:32 Amiodarone Hcl 200 Mg Tablet PO 200 mg QAM ALINA Administration Apixaban 2.5 mg 03/16/25 23:15 03/18/25 08:32 Apixaban 2.5 Mg Tablet PO 2.5 mg Q12HR ALINA Administration Atorvastatin Calcium 20 mg 03/16/25 23:15 03/17/25 20:25 Atorvastatin 20 Mg Tablet PO 20 mg HS ALINA Administration Calcium Acetate 667 mg 03/17/25 08:00 03/18/25 12:54 Calcium Acetate 667 Mg Tablet PO 667 mg TIDWM ALINA Administration Dextrose 12.5 gm 03/16/25 23:19 Dextrose 50% 25 Gm/50 Ml Syringe IV PUSH PRN PRN Hypoglycemia Protocol Epoetin Jorge Alberto-epbx 10,000 units 03/18/25 18:40 03/18/25 15:15 Epoetin Jorge Alberto-Epbx 10,000 Units/Ml Vial IV PUSH 03/18/25 18:41 10,000 units ONCE ONE Administration Escitalopram Oxalate 5 mg 03/17/25 09:00 03/18/25 08:34 Escitalopram Oxalate 5 Mg Tablet PO 5 mg DAILY ALINA Administration Glucagon 1 mg 03/16/25 23:19 Glucagon For Inj 1 Mg Vial IM PRN PRN Hypoglycemia Protocol Glucose 15 gm 03/16/25 23:19 Glucose Oral Gel 15 Gm Of Glucse In 37.5 Gm Tube PO PRN PRN Hypoglycemia Protocol Hydralazine HCl 25 mg 03/16/25 23:20 03/18/25 15:24 Hydralazine Hcl 25 Mg Tablet PO Not Given TID [facility] Ceftriaxone Sodium 1 gm/ 50 mls @ 100 mls/hr 03/17/25 18:00 03/18/25 15:29 Sodium Chloride IVPB 100 mls/hr Q24H ALINA Administration Dextrose 1,000 mls @ 100 mls/hr 03/16/25 23:19 Dextrose 5% 1,000 Ml IVPB PRN PRN Hypoglycemia Protocol Albumin Human 50 mls @ 999 mls/hr 03/18/25 06:40 Albutein IVPB 03/19/25 06:39 Q10M PRN HYPOTENSION Insulin Aspart 2 - 5 units 03/17/25 08:00 03/18/25 11:59 Insulin Aspart (*Bkc) 100 Units/Ml SUB-Q Not Given TIDWM [facility] Protocol Insulin Glargine 14 units 03/17/25 18:00 03/17/25 17:51 Insulin Glargine (*Bkc) 100 Units/Ml SUB-Q 14 units QPM ALINA Administration Isosorbide Mononitrate 30 mg 03/17/25 09:00 03/18/25 08:32 Isosorbide Mononitrate 30 Mg Tab.Er.24h PO 30 mg DAILY ALINA Administration Levothyroxine Sodium 200 mcg 03/17/25 06:30 03/18/25 05:33 Levothyroxine Sodium 100 Mcg Tablet PO 200 mcg DAILY@0630 ALINA Administration Lidocaine/Prilocaine 1 each 03/18/25 06:43 Lidocaine/Prilocaine Cream 2.5-2.5% Tube TOPICAL WITH DIALYSIS PRN for dialysis Protocol Lorazepam 0.5 mg 03/16/25 23:13 Lorazepam (*Crx) 0.5 Mg Tablet PO BID PRN Anxiety Metoprolol Succinate 50 mg 03/17/25 09:00 03/18/25 08:32 Metoprolol Succinate Ext Rel 50 Mg Tabcr PO 50 mg QAM ALINA Administration Montelukast Sodium 10 mg 03/17/25 09:00 03/18/25 08:32 Montelukast Sodium 10 Mg Tablet PO 10 mg DAILY ALINA Administration Ropinirole HCl 0.5 mg 03/16/25 23:20 03/18/25 08:32 Ropinirole Hcl 0.5 Mg Tablet PO 0.5 mg BID ALINA Administration Fluticasone/Salmeterol 2 puff 03/17/25 08:00 03/18/25 07:58 Fluticasone/Salmeterol 115-21 Mcg Inhaler 1 Puff INHALATION 2 puff Q12HRT ALINA Administration Trazodone HCl 50 mg 03/16/25 23:20 03/17/25 20:25 Trazodone Hcl 50 Mg Tablet PO 50 mg QHS ALINA Administration Radiology Results: ITS Impressions Head CT 03/16/25 16:58 IMPRESSION: No acute intracranial hemorrhage or extra axial fluid collections. Encephalomalacia changes within the left MCA territory reflective of remote infarct. Chronic white matter microangiopathic changes in the periventricular white matter. All CT scans at this facility are performed using low dose modulation techniques as appropriate to perform exam including the following: automated exposure control; use of iterative reconstruction technique; adjustment of the mA and/or kV according to patient size (this includes techniques or standardized protocols for targeted exams where dose is matched to indication/reason for exam). Labs Labs: Laboratory Tests 03/18/25 04:24 03/18/25 04:24 Calcium 8.4 Total Bilirubin 0.7 AST 21 ALT 15 Alkaline Phosphatase 108 Total Protein 6.9 Albumin 3.4 L Microbiology 03/16/25 17:33 Urine Clean Catch - Final
[2025-03-18] MEDS: EPOETIN ALFA-EPBX 10,000 UNITS/ML VIAL 10000 UNITS IV PUSH (15:15)
[2025-03-18] MEDS: cefTRIAXone 1 GM in SODIUM CHLORIDE 0.9% IV 50 ML 100 ML IVPB (15:29)
[2025-03-18] MEDS: INSULIN GLARGINE (*BKC) 100 UNITS/ML 14 UNITS SUB-Q (17:47)
[2025-03-18] MEDS: ACETAMINOPHEN 325 MG TABLET 650 MG PO (20:08)
[2025-03-18] MEDS: ATORVASTATIN 20 MG TABLET PO (20:08)
[2025-03-19] VITALS (12 sets, daily range): BP systolic 141–154; BP diastolic 55–80; PULSE 50–58; RESP 16–18; TEMP 36.1–36.4; O2SAT 94–100
[2025-03-19 04:49] LABS: Hematocrit 29.9 % (37.0-47.0); Hemoglobin 8.8 g/dL (12.0-15.0); Mean Corpuscular HGB Conc 29.4 g/dl (32-36); Mean Corpuscular Hemoglobin 27.0 pg (26-34); Mean Corpuscular Volume 91.7 fl (80-100); Platelet Count Result 233 k/mm3 (150-375); Red Blood Count 3.26 M/mm3 (4.2-5.4); White Blood Count 8.9 K/mm3 (4.5-10.0)
[2025-03-19 05:06] LABS: Alanine Aminotransferase 14 U/L (6-35); Albumin Level 3.2 g/dL (3.5-5.1); Alkaline Phosphatase 106 U/L (38-126); Anion Gap 5 mmol/L (4-12); Aspartate Amino Transferase 21 U/L (14-36); Bilirubin,Total 0.7 mg/dL (0.2-1.3); Blood Urea Nitrogen 19 mg/dL (7-17); Calcium 8.4 mg/dL (8.4-10.2); Carbon Dioxide 31 mmol/L (22-30); Chloride 100 mmol/L (98-107); Estimated CRCL calculation 12 ml/min; Estimated Glomerular Filt Rate 10; Glucose 79 mg/dL (65-110); Potassium 3.8 mmol/L (3.4-5.0); Sodium 136 mmol/L (137-145); Total Protein 6.7 g/dL (6.3-8.2)
[2025-03-19] MEDS: LEVOTHYROXINE SODIUM 100 MCG TABLET 200 MCG PO (06:09)
[2025-03-19] MEDS: APIXABAN 2.5 MG TABLET PO ×2 (08:59→21:42)
[2025-03-19] MEDS: METOPROLOL SUCCINATE EXT REL 50 MG TABCR PO (08:59)
[2025-03-19] MEDS: ESCITALOPRAM OXALATE 5 MG TABLET PO (08:59)
[2025-03-19] MEDS: ISOSORBIDE MONONITRATE 30 MG TAB.ER.24H PO (08:59)
[2025-03-19] MEDS: AMIODARONE HCL 200 MG TABLET PO (09:00)
[2025-03-19] MEDS: CALCIUM ACETATE 667 MG TABLET PO ×2 (09:00→16:39)
[2025-03-19] MEDS: MONTELUKAST SODIUM 10 MG TABLET PO (09:00)
--- NOTE | 2025-03-19 13:19 | P.PNNP_ITS ---
Progress Note: A&P Assessment and Plan (1) End stage renal disease: Code(s): N18.6 - End stage renal disease Status: Chronic Assessment and Plan: * HD tomorrow * continue M/W/F outpatient dialysis schedule * follow electrolytes, volume status, and clearance (2) AMS (altered mental status): Qualifiers: Altered mental status type: unspecified Qualified Code(s): R41.82 - Altered mental status, unspecified Code(s): R41.82 - Altered mental status, unspecified Status: Acute Assessment and Plan: * clinical improvement noted if not back to baseline * appears to be doing better at this time * head CT negative * follow mentation (3) UTI (urinary tract infection): Code(s): N39.0 - Urinary tract infection, site not specified Status: Acute Assessment and Plan: * admission UA highly suggestive * follow culture data - negative to date * on antibiotics * despite negative culture, improvement in #2 noted with antibiotic therapy (4) Anemia: Code(s): D64.9 - Anemia, unspecified Status: Chronic Assessment and Plan: * due to ESRD * RADHA/Epogen with HD * follow trend of H/H (5) Hypertension: Qualifiers: Hypertension type: unspecified Qualified Code(s): I10 - Essential (primary) hypertension Code(s): I10 - Essential (primary) hypertension Status: Chronic Assessment and Plan: * reasonable control * resume home BP medications * follow trend of hemodynamics (6) Type 2 diabetes mellitus with hyperglycemia: Qualifiers: Diabetes mellitus termination clerk insulin use: with long-term use Qualified Code(s): E11.65 - Type 2 diabetes mellitus with hyperglycemia; Z79.4 - 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 L Subjective Date/time seen: 03/19/25 13:19 Interval history: Follow-up for end stage renal disease on hemodialysis. Tolerated dialysis treatment yesterday without any issue or problems; difficult to fully assess due to expressive aphasia but no apparent distress noted at the time of my visit and no events overnight or earlier this morning; Exam 2 Narrative: General: elderly but WD/WN female in NAD Heart: normal S1 and S2; no rub Lungs: clear anteriorly; decreased at bases Abdomen: soft, nontender, nondistended, positive bowel sounds Extremities: no cyanosis or clubbing; trace edema Skin: warm and intact Objective Data Vital Signs Vital Signs: Vital Signs Temp Pulse Resp BP Pulse Ox O2 Del Method 03/19/25 13:00 97.0 F L 51 L 18 147/58 H 100 03/19/25 09:00 52 L 03/19/25 08:59 52 L 03/19/25 08:00 50 L 03/19/25 06:00 97.3 F L 51 L 16 141/55 H 100 03/19/25 04:00 51 L 03/19/25 00:00 58 L Intake/Output Intake/Output: Intake & Output 03/16/25 03/17/25 03/18/25 03/19/25 23:59 23:59 23:59 23:59 Intake Total 7591 447 0985 Output Total 0 2000 0 Balance 1130 -1020 1010 Meds/Results Medications: Active Medications Generic Name Dose Route Start Last Admin Trade Name Freq PRN Reason Stop Dose Admin Acetaminophen 650 mg 03/17/25 20:15 03/18/25 20:08 Acetaminophen 325 Mg Tablet PO 650 mg Q6H PRN Administration Mild Pain (1-3) or Fever Albuterol 2.5 mg 03/16/25 23:13 Albuterol Sulfate Neb 2.5 Mg/3 Ml Inh INHALATION Q4-6H PRN Shortness Of Breath Or Wheezing Amiodarone HCl 200 mg 03/17/25 09:00 03/19/25 09:00 Amiodarone Hcl 200 Mg Tablet PO 200 mg QAM ALINA Administration Amoxicillin/Clavulanate Potassium 1 tablet 03/19/25 09:00 03/19/25 21:42 Amoxicillin/Clavulanate K 500-125 Mg Tab PO 03/23/25 21:01 1 tablet Q12HR ALINA Administration Apixaban 2.5 mg 03/16/25 23:15 03/19/25 21:42 Apixaban 2.5 Mg Tablet PO 2.5 mg Q12HR ALINA Administration Atorvastatin Calcium 20 mg 03/16/25 23:15 03/19/25 21:42 Atorvastatin 20 Mg Tablet PO 20 mg HS ALINA Administration Calcium Acetate 667 mg 03/17/25 08:00 03/19/25 16:39 Calcium Acetate 667 Mg Tablet PO 667 mg TIDWM ALINA Administration Dextrose 12.5 gm 03/16/25 23:19 Dextrose 50% 25 Gm/50 Ml Syringe IV PUSH PRN PRN Hypoglycemia Protocol Escitalopram Oxalate 5 mg 03/17/25 09:00 03/19/25 08:59 Escitalopram Oxalate 5 Mg Tablet PO 5 mg DAILY ALINA Administration Glucagon 1 mg 03/16/25 23:19 Glucagon For Inj 1 Mg Vial IM PRN PRN Hypoglycemia Protocol Glucose 15 gm 03/16/25 23:19 Glucose Oral Gel 15 Gm Of Glucse In 37.5 Gm Tube PO PRN PRN Hypoglycemia Protocol Hydralazine HCl 25 mg 03/16/25 23:20 03/19/25 16:39 Hydralazine Hcl 25 Mg Tablet PO 25 mg TID ALINA Administration Dextrose 1,000 mls @ 100 mls/hr 03/16/25 23:19 Dextrose 5% 1,000 Ml IVPB PRN PRN Hypoglycemia Protocol Insulin Aspart 2 - 5 units 03/17/25 08:00 03/19/25 17:26 Insulin Aspart (*Bkc) 100 Units/Ml SUB-Q Not Given TIDWM ALINA Protocol Insulin Glargine 14 units 03/17/25 18:00 03/19/25 16:49 Insulin Glargine (*Bkc) 100 Units/Ml SUB-Q 14 units QPM ALINA Administration Isosorbide Mononitrate 30 mg 03/17/25 09:00 03/19/25 08:59 Isosorbide Mononitrate 30 Mg Tab.Er.24h PO 30 mg DAILY ALINA Administration Levothyroxine Sodium 200 mcg 03/17/25 06:30 03/19/25 06:09 Levothyroxine Sodium 100 Mcg Tablet PO 200 mcg DAILY@0630 ALINA Administration Lidocaine/Prilocaine 1 each 03/18/25 06:43 Lidocaine/Prilocaine Cream 2.5-2.5% Tube TOPICAL WITH DIALYSIS PRN for dialysis Protocol Lorazepam 0.5 mg 03/16/25 23:13 Lorazepam (*Crx) 0.5 Mg Tablet PO BID PRN Anxiety Metoprolol Succinate 50 mg 03/17/25 09:00 03/19/25 08:59 Metoprolol Succinate Ext Rel 50 Mg Tabcr PO 50 mg QAM ALINA Administration Montelukast Sodium 10 mg 03/17/25 09:00 03/19/25 09:00 Montelukast Sodium 10 Mg Tablet PO 10 mg DAILY ALINA Administration Polyethylene Glycol 17 gm 03/20/25 09:00 Polyethylene Glycol 3350 17 Gm Powd.Pack PO QAM ALINA Ropinirole HCl 0.5 mg 03/16/25 23:20 03/19/25 16:47 Ropinirole Hcl 0.5 Mg Tablet PO 0.5 mg BID ALINA Administration Fluticasone/Salmeterol 2 puff 03/17/25 08:00 03/19/25 20:37 Fluticasone/Salmeterol 115-21 Mcg Inhaler 1 Puff INHALATION 2 puff Q12HRT ALINA Administration Senna/Docusate Sodium 1 tab 03/19/25 21:00 03/19/25 21:42 Senna/Docusate Sodium Tablet PO 1 tab HS ALINA Administration Trazodone HCl 50 mg 03/16/25 23:20 03/19/25 21:42 Trazodone Hcl 50 Mg Tablet PO 50 mg QHS ALINA Administration Radiology Results: ITS Impressions Head CT 03/16/25 16:58 IMPRESSION: No acute intracranial hemorrhage or extra axial fluid collections. Encephalomalacia changes within the left MCA territory reflective of remote infarct. Chronic white matter microangiopathic changes in the periventricular white matter. All CT scans at this facility are performed using low dose modulation techniques as appropriate to perform exam including the following: automated exposure control; use of iterative reconstruction technique; adjustment of the mA and/or kV according to patient size (this includes techniques or standardized protocols for targeted exams where dose is matched to indication/reason for exam). Labs Labs: Laboratory Tests 03/19/25 04:20 03/19/25 04:20 Calcium 8.4 Total Bilirubin 0.7 AST 21 ALT 14 Alkaline Phosphatase 106 Total Protein 6.7 Albumin 3.2 L
--- NOTE | 2025-03-19 14:05 | PM.IMPN ---
Progress Note: A&P Assessment and Plan (1) AMS (altered mental status): Qualifiers: Altered mental status type: unspecified Qualified Code(s): R41.82 - Altered mental status, unspecified Code(s): R41.82 - Altered mental status, unspecified Status: Acute Assessment and Plan: Per patients the patient seemed to have difficulty figuring out how to pull up her pants then difficulty understanding how to get her food to her mouth. She was sitting on a stool at around 15:00 and it slid out from under. She struck the right side her head on the stool. Chronically on Eliquis for stroke prophylaxis. The patient does have baseline right-sided deficits and expressive aphasia that is unchanged from baseline. Head CT: No acute intracranial hemorrhage or extra axial fluid collections. Encephalomalacia changes within the left MCA territory reflective of remote infarct. Chronic white matter microangiopathic changes in the periventricular white matter. Patient remains at her baseline mental status with expressive aphasia. (2) Acute UTI: Code(s): N39.0 - Urinary tract infection, site not specified Status: Acute Assessment and Plan: - UA concerning for infection - UC obtained on 03/17: negative - previous micro reviewed 01/2025: ecoli pansensitive 08/2024: proteus mirabilis with resistance to cipro, macrobid, bactrim and cefazolin - started on rocpehin on 03/17, discontinued on 03/18. Given patients increased confusion concerning for metabolic encephalopathy as no noted abnormalities on imaging and improvement with antibiotics will continue to treat for a UTI since patient cannot disclose if symptomatic. Started on Augmentin on 03/19 to complete the course. (3) Hypertension: Qualifiers: Hypertension type: unspecified Qualified Code(s): I10 - Essential (primary) hypertension Code(s): I10 - Essential (primary) hypertension Status: Chronic Assessment and Plan: Chronic, continue home medications - metoprolol 50 mg daily - imdur 30 mg daily - hydralazine 25 mg TID - blood pressures reviewed and stable, continue to monitor (4) ESRD on hemodialysis: Code(s): N18.6 - End stage renal disease; Z99.2 - Dependence on renal dialysis Status: Acute Assessment and Plan: Chronic Hemodialysis Sunday Nephrology consulted (5) Diabetes: Code(s): E11.9 - Type 2 diabetes mellitus without complications Status: Acute Assessment and Plan: - hypoglycemia protocol - POC blood glucose ACHS - home medication - lantus 18 units and SSI - correct regimen ordered - 14 units lantus (20% decrease from home dose) and low-dose sliding scale insulin - A1C 6.5 Glucose stable. Continue to monitor. (6) Chronic wound: Code(s): T14.8XXA - Other injury of unspecified body region, initial encounter Status: Acute Assessment and Plan: Patient has a chronic wound to the posterior ankle/achilles region that does not appear infection. No warmth, exudate, or erythema present. 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 Patient is pleasant lying in bed. No acute events overnight. Unable to obtain a reliable ROS given patients chornic aphasia. Recieved call from RN that patient has not had a bowel movement in several days. Will start a bowel regimen at this time. There does not appear to be any abdominal pain on exam as no wincing/gaurding noted. Review of Systems Review of Systems: ROS unobtainable: Yes unobtainable due to mental status (chronic expressive aphasia ) Exam Narrative: AF HR 51 RR 16 SPO2 100 BP 141/55 General:female in no acute respiratory distress who is nontoxic appearing, lying semi recumbent in bed. HEENT: Normocephalic. Atraumatic. Extraocular movement intact. Sclera clear and anicteric. No facial asymmetry. Chest: Lungs are clear to auscultation bilaterally. No wheezes or crackles. CV: Heart was regular rate and rhythm. Abd: Abdomen was soft. Nontender. Nondistended. Positive bowel sounds. Ext: No clubbing, cyanosis or edema. Chronic wound to the right Achilles region without redness, warmth, or drainage. Neuro: Patient is alert. Chronic expressive aphasia. Moving all extremities. Chronic right upper extremity weakness. Objective Data Vital Signs Vital Signs: Vital Signs - 24 hr 03/18/25 14:15 03/18/25 14:30 03/18/25 14:45 Temperature Pulse Rate 54 L 55 L 55 L Respiratory Rate Blood Pressure 182/68 H 166/72 H 174/70 H Pulse Oximetry 03/18/25 15:00 03/18/25 15:15 03/18/25 15:30 Temperature Pulse Rate 55 L 54 L 50 L Respiratory Rate Blood Pressure 175/55 H 158/61 H 157/55 H Pulse Oximetry 03/18/25 15:45 03/18/25 16:00 03/18/25 16:05 Temperature Pulse Rate 54 L 55 L 54 L Respiratory Rate Blood Pressure 169/57 H 156/60 H Pulse Oximetry 03/18/25 16:15 03/18/25 16:30 03/18/25 16:48 Temperature Pulse Rate 54 L 54 L 57 L Respiratory Rate Blood Pressure 181/64 H 178/64 H 165/64 H Pulse Oximetry 03/18/25 16:54 03/18/25 17:52 03/18/25 20:12 Temperature 98.1 F 97.7 F Pulse Rate 56 L 54 L 54 L Respiratory Rate 12 15 Blood Pressure 174/71 H 168/52 H Pulse Oximetry 98 96 03/18/25 22:04 03/19/25 00:00 03/19/25 04:00 Temperature 97.7 F Pulse Rate 60 58 L 51 L Respiratory Rate 16 Blood Pressure 188/71 H Pulse Oximetry 95 03/19/25 06:00 03/19/25 08:00 03/19/25 08:59 Temperature 97.3 F L Pulse Rate 51 L 50 L 52 L Respiratory Rate 16 Blood Pressure 141/55 H Pulse Oximetry 100 03/19/25 09:00 Temperature Pulse Rate 52 L Respiratory Rate Blood Pressure Pulse Oximetry Intake/Output Intake/Output: Intake & Output 03/16/25 03/17/25 03/18/25 03/19/25 23:59 23:59 23:59 23:59 Intake Total 1130 980 530 Output Total 0 1999 Balance 1130 -1020 530 Meds/Results Medications: Active Medications Generic Name Dose Route Start Last Admin Trade Name Felipe PRN Reason Stop Dose Admin Acetaminophen 650 mg 03/17/25 20:15 03/18/25 20:08 Acetaminophen 325 Mg Tablet PO 650 mg Q6H PRN Administration Mild Pain (1-3) or Fever Albuterol 2.5 mg 03/16/25 23:13 Albuterol Sulfate Neb 2.5 Mg/3 Ml Inh INHALATION Q4-6H PRN Shortness Of Breath Or Wheezing Amiodarone HCl 200 mg 03/17/25 09:00 03/19/25 09:00 Amiodarone Hcl 200 Mg Tablet PO 200 mg QAM ALINA Administration Amoxicillin/Clavulanate Potassium 1 tablet 03/19/25 09:00 03/19/25 09:12 Amoxicillin/Clavulanate K 500-125 Mg Tab PO 03/23/25 21:01 1 tablet Q12HR ALINA Administration Apixaban 2.5 mg 03/16/25 23:15 03/19/25 08:59 Apixaban 2.5 Mg Tablet PO 2.5 mg Q12HR ALINA Administration Atorvastatin Calcium 20 mg 03/16/25 23:15 03/18/25 20:08 Atorvastatin 20 Mg Tablet PO 20 mg HS ALINA Administration Calcium Acetate 667 mg 03/17/25 08:00 03/19/25 12:57 Calcium Acetate 667 Mg Tablet PO Not Given TIDWM ALINA Dextrose 12.5 gm 03/16/25 23:19 Dextrose 50% 25 Gm/50 Ml Syringe IV PUSH PRN PRN Hypoglycemia Protocol Escitalopram Oxalate 5 mg 03/17/25 09:00 03/19/25 08:59 Escitalopram Oxalate 5 Mg Tablet PO 5 mg DAILY ALINA Administration Glucagon 1 mg 03/16/25 23:19 Glucagon For Inj 1 Mg Vial IM PRN PRN Hypoglycemia Protocol Glucose 15 gm 03/16/25 23:19 Glucose Oral Gel 15 Gm Of Glucse In 37.5 Gm Tube PO PRN PRN Hypoglycemia Protocol Hydralazine HCl 25 mg 03/16/25 23:20 03/19/25 12:57 Hydralazine Hcl 25 Mg Tablet PO Not Given TID ALINA Dextrose 1,000 mls @ 100 mls/hr 03/16/25 23:19 Dextrose 5% 1,000 Ml IVPB PRN PRN Hypoglycemia Protocol Insulin Aspart 2 - 5 units 03/17/25 08:00 03/19/25 12:56 Insulin Aspart (*Bkc) 100 Units/Ml SUB-Q Not Given TIDWM [facility] Protocol Insulin Glargine 14 units 03/17/25 18:00 03/18/25 17:47 Insulin Glargine (*Bkc) 100 Units/Ml SUB-Q 14 units QPM ALIAN Administration Isosorbide Mononitrate 30 mg 03/17/25 09:00 03/19/25 08:59 Isosorbide Mononitrate 30 Mg Tab.Er.24h PO 30 mg DAILY ALINA Administration Levothyroxine Sodium 200 mcg 03/17/25 06:30 03/19/25 06:09 Levothyroxine Sodium 100 Mcg Tablet PO 200 mcg DAILY@0630 ALINA Administration Lidocaine/Prilocaine 1 each 03/18/25 06:43 Lidocaine/Prilocaine Cream 2.5-2.5% Tube TOPICAL WITH DIALYSIS PRN for dialysis Protocol Lorazepam 0.5 mg 03/16/25 23:13 Lorazepam (*Crx) 0.5 Mg Tablet PO BID PRN Anxiety Metoprolol Succinate 50 mg 03/17/25 09:00 03/19/25 08:59 Metoprolol Succinate Ext Rel 50 Mg Tabcr PO 50 mg QAM ALINA Administration Montelukast Sodium 10 mg 03/17/25 09:00 03/19/25 09:00 Montelukast Sodium 10 Mg Tablet PO 10 mg DAILY ALINA Administration Polyethylene Glycol 17 gm 03/20/25 09:00 Polyethylene Glycol 3350 17 Gm Powd.Pack PO QAM ALINA Ropinirole HCl 0.5 mg 03/16/25 23:20 03/19/25 09:00 Ropinirole Hcl 0.5 Mg Tablet PO 0.5 mg BID ALINA Administration Fluticasone/Salmeterol 2 puff 03/17/25 08:00 03/19/25 13:43 Fluticasone/Salmeterol 115-21 Mcg Inhaler 1 Puff INHALATION Not Given Q12HRT ALINA Senna/Docusate Sodium 1 tab 03/19/25 21:00 Senna/Docusate Sodium Tablet PO HS [facility] Trazodone HCl 50 mg 03/16/25 23:20 03/18/25 20:08 Trazodone Hcl 50 Mg Tablet PO 50 mg QHS ALINA Administration Radiology Results: ITS Impressions Head CT 03/16/25 16:58 IMPRESSION: No acute intracranial hemorrhage or extra axial fluid collections. Encephalomalacia changes within the left MCA territory reflective of remote infarct. Chronic white matter microangiopathic changes in the periventricular white matter. All CT scans at this facility are performed using low dose modulation techniques as appropriate to perform exam including the following: automated exposure control; use of iterative reconstruction technique; adjustment of the mA and/or kV according to patient size (this includes techniques or standardized protocols for targeted exams where dose is matched to indication/reason for exam). Labs Labs: Laboratory Results - last 24 hr 03/18/25 03/19/25 03/19/25 17:43 04:20 08:03 WBC 8.9 RBC 3.26 L Hgb 8.8 L Hct 29.9 L MCV 91.7 MCH 27.0 MCHC 29.4 L RDW 19.8 H Plt Count 233 MPV 9.8 Sodium 136 L Potassium 3.8 Chloride 100 Carbon Dioxide 31 H Anion Gap 5 BUN 19 H D Creatinine 4.18 H Estim Creat Clear Calc 12 Estimated GFR 10 L Glucose 79 POC Capillary Glucose 176 H 68 Calcium 8.4 Total Bilirubin 0.7 AST 21 ALT 14 Alkaline Phosphatase 106 Total Protein 6.7 Albumin 3.2 L 03/19/25 03/19/25 09:32 11:36 WBC RBC Hgb Hct MCV MCH MCHC RDW Plt Count MPV Sodium Potassium Chloride Carbon Dioxide Anion Gap BUN Creatinine Estim Creat Clear Calc Estimated GFR Glucose POC Capillary Glucose 108 H 101 Calcium Total Bilirubin AST ALT Alkaline Phosphatase Total Protein Albumin Quality VTE Prophylaxis VTE prophylaxis: pharmacologic ordered
[2025-03-19] MEDS: INSULIN GLARGINE (*BKC) 100 UNITS/ML 14 UNITS SUB-Q (16:49)
[2025-03-19] MEDS: FLUTICASONE/SALMETEROL 115-21 MCG INHALER 1 PUFF 2 PUFF INHALATION (20:37)
[2025-03-19] MEDS: SENNA/DOCUSATE SODIUM TABLET 1 TAB PO (21:42)
[2025-03-19] MEDS: ATORVASTATIN 20 MG TABLET PO (21:42)
[2025-03-20] VITALS (28 sets, daily range): BP systolic 140–181; BP diastolic 50–92; PULSE 54–64; RESP 16–18; TEMP 36–37; O2SAT 93–100
[2025-03-20 05:44] LABS: Hematocrit 31.2 % (37.0-47.0); Hemoglobin 9.0 g/dL (12.0-15.0); Mean Corpuscular HGB Conc 28.8 g/dl (32-36); Mean Corpuscular Hemoglobin 26.6 pg (26-34); Mean Corpuscular Volume 92.3 fl (80-100); Platelet Count Result 240 k/mm3 (150-375); Red Blood Count 3.38 M/mm3 (4.2-5.4); White Blood Count 6.7 K/mm3 (4.5-10.0)
[2025-03-20 06:07] LABS: Alanine Aminotransferase 13 U/L (6-35); Albumin Level 3.5 g/dL (3.5-5.1); Alkaline Phosphatase 110 U/L (38-126); Anion Gap 9 mmol/L (4-12); Aspartate Amino Transferase 22 U/L (14-36); Bilirubin,Total 0.8 mg/dL (0.2-1.3); Blood Urea Nitrogen 28 mg/dL (7-17); Calcium 8.4 mg/dL (8.4-10.2); Carbon Dioxide 29 mmol/L (22-30); Chloride 99 mmol/L (98-107); Estimated CRCL calculation 9 ml/min; Estimated Glomerular Filt Rate 8; Glucose 109 mg/dL (65-110); Potassium 4.5 mmol/L (3.4-5.0); Sodium 137 mmol/L (137-145); Total Protein 7.1 g/dL (6.3-8.2)
[2025-03-20] MEDS: LEVOTHYROXINE SODIUM 100 MCG TABLET 200 MCG PO (06:15)
[2025-03-20] MEDS: FLUTICASONE/SALMETEROL 115-21 MCG INHALER 1 PUFF 2 PUFF INHALATION ×2 (07:41→20:22)
--- NOTE | 2025-03-20 08:31 | PM.IMPN ---
Progress Note: A&P Assessment and Plan (1) AMS (altered mental status): Qualifiers: Altered mental status type: unspecified Qualified Code(s): R41.82 - Altered mental status, unspecified Code(s): R41.82 - Altered mental status, unspecified Status: Acute Assessment and Plan: Per patients the patient seemed to have difficulty figuring out how to pull up her pants then difficulty understanding how to get her food to her mouth. She was sitting on a stool at around 15:00 and it slid out from under. She struck the right side her head on the stool. Chronically on Eliquis for stroke prophylaxis. The patient does have baseline right-sided deficits and expressive aphasia that is unchanged from baseline. Head CT: No acute intracranial hemorrhage or extra axial fluid collections. Encephalomalacia changes within the left MCA territory reflective of remote infarct. Chronic white matter microangiopathic changes in the periventricular white matter. Patient remains at her baseline mental status with expressive aphasia. (2) Acute UTI: Code(s): N39.0 - Urinary tract infection, site not specified Status: Acute Assessment and Plan: - UA concerning for infection - UC obtained on 03/17: negative - previous micro reviewed 01/2025: ecoli pansensitive 08/2024: proteus mirabilis with resistance to cipro, macrobid, bactrim and cefazolin - started on Rocephin on 03/17, discontinued on 03/18. Given patients increased confusion concerning for metabolic encephalopathy as no noted abnormalities on imaging and improvement with antibiotics will continue to treat for a UTI since patient cannot disclose if symptomatic. Started on Augmentin on 03/19, course to be completed on 03/23. (3) Hypertension: Qualifiers: Hypertension type: unspecified Qualified Code(s): I10 - Essential (primary) hypertension Code(s): I10 - Essential (primary) hypertension Status: Chronic Assessment and Plan: Chronic, continue home medications - metoprolol 50 mg daily - imdur 30 mg daily - hydralazine 25 mg TID - blood pressures reviewed and stable, continue to monitor (4) ESRD on hemodialysis: Code(s): N18.6 - End stage renal disease; Z99.2 - Dependence on renal dialysis Status: Acute Assessment and Plan: Chronic Hemodialysis Sunday Nephrology consulted (5) Diabetes: Code(s): E11.9 - Type 2 diabetes mellitus without complications Status: Acute Assessment and Plan: - hypoglycemia protocol - POC blood glucose ACHS - home medication - lantus 18 units and SSI - correct regimen ordered - 14 units lantus (20% decrease from home dose) and low-dose sliding scale insulin - A1C 6.5 Glucose stable. Continue to monitor. (6) Chronic wound: Code(s): T14.8XXA - Other injury of unspecified body region, initial encounter Status: Acute Assessment and Plan: Patient has a chronic wound to the posterior ankle/achilles region that does not appear infection. No warmth, exudate, or erythema present. 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 Patient is pleasant lying comfortably in bed receiving dialysis. She remains at her baseline with expressive aphasia. No acute events overnight. Patient was having noted constipation which has since resolved as she has had return of BM. Care coodination continues to follow for placement. Review of Systems Review of Systems: ROS unobtainable: Yes unobtainable due to mental status (chronic expressive aphasia ) Exam Narrative: AF HR 58 RR 18 Spo2 98 BP 150/83 General:female in no acute respiratory distress who is nontoxic appearing, lying semi recumbent in bed receiving dialysis HEENT: Normocephalic. Atraumatic. Extraocular movement intact. Sclera clear and anicteric. No facial asymmetry. Chest: Lungs are clear to auscultation bilaterally. No wheezes or crackles. CV: Heart was regular rate and rhythm. Abd: Abdomen was soft. Nontender. Nondistended. Positive bowel sounds. Ext: No clubbing, cyanosis or edema. Chronic wound to the right Achilles region without redness, warmth, or drainage. Neuro: Patient is alert. Chronic expressive aphasia. Moving all extremities. Chronic right upper extremity weakness. Objective Data Vital Signs Vital Signs: Vital Signs - 24 hr 03/19/25 08:59 03/19/25 09:00 03/19/25 12:00 Temperature Pulse Rate 52 L 52 L 53 L Respiratory Rate Blood Pressure Pulse Oximetry Oxygen Delivery 03/19/25 14:00 03/19/25 16:00 03/19/25 19:41 Temperature 97.0 F L 97.6 F Pulse Rate 51 L 58 L 56 L Respiratory Rate 18 18 Blood Pressure 147/58 H 154/80 H Pulse Oximetry 100 94 Oxygen Delivery 03/19/25 20:00 03/19/25 20:40 03/19/25 20:40 Temperature Pulse Rate 54 L 53 L Respiratory Rate 16 Blood Pressure Pulse Oximetry 96 Oxygen Delivery Room Air 03/20/25 00:00 03/20/25 03:28 03/20/25 04:00 Temperature 97.2 F L Pulse Rate 60 57 L 57 L Respiratory Rate 18 Blood Pressure 179/66 H Pulse Oximetry 97 Oxygen Delivery 03/20/25 07:44 Temperature Pulse Rate Respiratory Rate Blood Pressure Pulse Oximetry 96 Oxygen Delivery Room Air Intake/Output Intake/Output: Intake & Output 03/17/25 03/18/25 03/19/25 03/20/25 23:59 23:59 23:59 23:59 Intake Total 3438 992 9503 390 Output Total 0 2000 0 Balance 1130 -1020 1010 390 Meds/Results Medications: Active Medications Generic Name Dose Route Start Last Admin Trade Name Freq PRN Reason Stop Dose Admin Acetaminophen 650 mg 03/17/25 20:15 03/18/25 20:08 Acetaminophen 325 Mg Tablet PO 650 mg Q6H PRN Administration Mild Pain (1-3) or Fever Albuterol 2.5 mg 03/16/25 23:13 Albuterol Sulfate Neb 2.5 Mg/3 Ml Inh INHALATION Q4-6H PRN Shortness Of Breath Or Wheezing Amiodarone HCl 200 mg 03/17/25 09:00 03/19/25 09:00 Amiodarone Hcl 200 Mg Tablet PO 200 mg QAM ALINA Administration Amoxicillin/Clavulanate Potassium 1 tablet 03/19/25 09:00 03/19/25 21:42 Amoxicillin/Clavulanate K 500-125 Mg Tab PO 03/23/25 21:01 1 tablet Q12HR ALINA Administration Apixaban 2.5 mg 03/16/25 23:15 03/19/25 21:42 Apixaban 2.5 Mg Tablet PO 2.5 mg Q12HR ALINA Administration Atorvastatin Calcium 20 mg 03/16/25 23:15 03/19/25 21:42 Atorvastatin 20 Mg Tablet PO 20 mg HS ALINA Administration Calcium Acetate 667 mg 03/17/25 08:00 03/19/25 16:39 Calcium Acetate 667 Mg Tablet PO 667 mg TIDWM ALINA Administration Dextrose 12.5 gm 03/16/25 23:19 Dextrose 50% 25 Gm/50 Ml Syringe IV PUSH PRN PRN Hypoglycemia Protocol Epoetin Jorge Alberto-epbx 10,000 units 03/20/25 18:17 Epoetin Jorge Alberto-Epbx 10,000 Units/Ml Vial IV PUSH 03/20/25 18:18 ONCE ONE Escitalopram Oxalate 5 mg 03/17/25 09:00 03/19/25 08:59 Escitalopram Oxalate 5 Mg Tablet PO 5 mg DAILY ALINA Administration Glucagon 1 mg 03/16/25 23:19 Glucagon For Inj 1 Mg Vial IM PRN PRN Hypoglycemia Protocol Glucose 15 gm 03/16/25 23:19 Glucose Oral Gel 15 Gm Of Glucse In 37.5 Gm Tube PO PRN PRN Hypoglycemia Protocol Hydralazine HCl 25 mg 03/16/25 23:20 03/19/25 16:39 Hydralazine Hcl 25 Mg Tablet PO 25 mg TID ALINA Administration Dextrose 1,000 mls @ 100 mls/hr 03/16/25 23:19 Dextrose 5% 1,000 Ml IVPB PRN PRN Hypoglycemia Protocol Albumin Human 50 mls @ 999 mls/hr 03/20/25 06:17 Albutein IVPB 04/19/25 06:16 Q10M PRN HYPOTENSION Insulin Aspart 2 - 5 units 03/17/25 08:00 03/20/25 08:21 Insulin Aspart (*Bkc) 100 Units/Ml SUB-Q Not Given TIDWM ALINA Protocol Insulin Glargine 14 units 03/17/25 18:00 03/19/25 16:49 Insulin Glargine (*Bkc) 100 Units/Ml SUB-Q 14 units QPM ALINA Administration Isosorbide Mononitrate 30 mg 03/17/25 09:00 03/19/25 08:59 Isosorbide Mononitrate 30 Mg Tab.Er.24h PO 30 mg DAILY ALINA Administration Levothyroxine Sodium 200 mcg 03/17/25 06:30 03/20/25 06:15 Levothyroxine Sodium 100 Mcg Tablet PO 200 mcg DAILY@0630 ALINA Administration Lidocaine/Prilocaine 1 each 03/18/25 06:43 Lidocaine/Prilocaine Cream 2.5-2.5% Tube TOPICAL WITH DIALYSIS PRN for dialysis Protocol Lorazepam 0.5 mg 03/16/25 23:13 Lorazepam (*Crx) 0.5 Mg Tablet PO BID PRN Anxiety Metoprolol Succinate 50 mg 03/17/25 09:00 03/19/25 08:59 Metoprolol Succinate Ext Rel 50 Mg Tabcr PO 50 mg QAM ALINA Administration Montelukast Sodium 10 mg 03/17/25 09:00 03/19/25 09:00 Montelukast Sodium 10 Mg Tablet PO 10 mg DAILY ALINA Administration Polyethylene Glycol 17 gm 03/20/25 09:00 Polyethylene Glycol 3350 17 Gm Powd.Pack PO QAM ALINA Ropinirole HCl 0.5 mg 03/16/25 23:20 03/19/25 16:47 Ropinirole Hcl 0.5 Mg Tablet PO 0.5 mg BID ALINA Administration Fluticasone/Salmeterol 2 puff 03/17/25 08:00 03/20/25 07:41 Fluticasone/Salmeterol 115-21 Mcg Inhaler 1 Puff INHALATION 2 puff Q12HRT ALINA Administration Senna/Docusate Sodium 1 tab 03/19/25 21:00 03/19/25 21:42 Senna/Docusate Sodium Tablet PO 1 tab HS ALINA Administration Trazodone HCl 50 mg 03/16/25 23:20 03/19/25 21:42 Trazodone Hcl 50 Mg Tablet PO 50 mg QHS ALINA Administration Radiology Results: ITS Impressions Head CT 03/16/25 16:58 IMPRESSION: No acute intracranial hemorrhage or extra axial fluid collections. Encephalomalacia changes within the left MCA territory reflective of remote infarct. Chronic white matter microangiopathic changes in the periventricular white matter. All CT scans at this facility are performed using low dose modulation techniques as appropriate to perform exam including the following: automated exposure control; use of iterative reconstruction technique; adjustment of the mA and/or kV according to patient size (this includes techniques or standardized protocols for targeted exams where dose is matched to indication/reason for exam). Labs Labs: Laboratory Results - last 24 hr 03/19/25 03/19/25 03/19/25 09:32 11:36 16:55 WBC RBC Hgb Hct MCV MCH MCHC RDW Plt Count MPV Sodium Potassium Chloride Carbon Dioxide Anion Gap BUN Creatinine Estim Creat Clear Calc Estimated GFR Glucose POC Capillary Glucose 108 H 101 126 H Calcium Total Bilirubin AST ALT Alkaline Phosphatase Total Protein Albumin 03/19/25 03/19/25 03/20/25 19:36 22:11 05:16 WBC 6.7 RBC 3.38 L Hgb 9.0 L Hct 31.2 L MCV 92.3 MCH 26.6 MCHC 28.8 L RDW 19.6 H Plt Count 240 MPV 9.9 Sodium 137 Potassium 4.5 Chloride 99 Carbon Dioxide 29 Anion Gap 9 BUN 28 H Creatinine 5.35 H Estim Creat Clear Calc 9 Estimated GFR 8 L Glucose 109 POC Capillary Glucose 170 H 153 H Calcium 8.4 Total Bilirubin 0.8 AST 22 ALT 13 Alkaline Phosphatase 110 Total Protein 7.1 Albumin 3.5 03/20/25 07:58 WBC RBC Hgb Hct MCV MCH MCHC RDW Plt Count MPV Sodium Potassium Chloride Carbon Dioxide Anion Gap BUN Creatinine Estim Creat Clear Calc Estimated GFR Glucose POC Capillary Glucose 93 Calcium Total Bilirubin AST ALT Alkaline Phosphatase Total Protein Albumin Quality VTE Prophylaxis VTE prophylaxis: pharmacologic ordered
[2025-03-20] MEDS: LORazepam (*CRX) 0.5 MG TABLET PO (10:57)
[2025-03-20] MEDS: EPOETIN ALFA-EPBX 10,000 UNITS/ML VIAL 10000 UNITS IV PUSH (13:01)
--- NOTE | 2025-03-20 13:05 | P.PNNP_ITS ---
Progress Note: A&P Assessment and Plan (1) End stage renal disease: Code(s): N18.6 - End stage renal disease Status: Chronic Assessment and Plan: * HD today * continue M/W/F outpatient dialysis schedule * follow electrolytes, volume status, and clearance (2) AMS (altered mental status): Qualifiers: Altered mental status type: unspecified Qualified Code(s): R41.82 - Altered mental status, unspecified Code(s): R41.82 - Altered mental status, unspecified Status: Acute Assessment and Plan: * clinical improvement noted if not back to baseline * appears to be doing better at this time * head CT negative * follow mentation (3) UTI (urinary tract infection): Code(s): N39.0 - Urinary tract infection, site not specified Status: Acute Assessment and Plan: * admission UA highly suggestive * follow culture data - negative to date * on antibiotics * despite negative culture, improvement in #2 noted with antibiotic therapy (4) Anemia: Code(s): D64.9 - Anemia, unspecified Status: Chronic Assessment and Plan: * due to ESRD * RADHA/Epogen with HD * follow trend of H/H (5) Hypertension: Qualifiers: Hypertension type: unspecified Qualified Code(s): I10 - Essential (primary) hypertension Code(s): I10 - Essential (primary) hypertension Status: Chronic Assessment and Plan: * reasonable control * resume home BP medications * follow trend of hemodynamics (6) Type 2 diabetes mellitus with hyperglycemia: Qualifiers: 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 L Subjective Date/time seen: 03/20/25 13:05 Interval history: Follow-up for end stage renal disease on hemodialysis. Tolerating dialysis treatment at the time of my visit (seen on HD at 12:55pm); no other issues or events overnight or earlier this morning; mentation remains stable when seen; limited assessment of status due to expressive aphasia but appears in no distress. Exam 2 Narrative: General: elderly but WD/WN female in NAD Heart: normal S1 and S2; no rub Lungs: clear anteriorly; decreased at bases Abdomen: soft, nontender, nondistended, positive bowel sounds Extremities: no cyanosis or clubbing; trace edema Skin: no rash Objective Data Vital Signs Vital Signs: Vital Signs Temp Pulse Resp BP Pulse Ox O2 Del Method FiO2 03/20/25 12:45 56 L 161/92 H 03/20/25 12:30 55 L 159/50 H 03/20/25 12:15 56 L 157/67 H 03/20/25 12:00 56 L 140/68 03/20/25 11:45 55 L 146/75 H 03/20/25 11:31 56 L 157/52 H 03/20/25 11:15 54 L 147/71 H 03/20/25 11:00 55 L 147/63 H 03/20/25 10:45 58 L 151/71 H 03/20/25 10:30 56 L 143/73 H 03/20/25 10:15 55 L 150/59 H 03/20/25 09:55 54 L 146/84 H 03/20/25 08:50 97.4 F L 54 L 18 169/69 H 98 03/20/25 08:00 98 Room Air 21 03/20/25 08:00 56 L 157/67 H 03/20/25 07:44 96 Room Air 03/20/25 04:00 57 L 03/20/25 03:28 97.2 F L 57 L 18 179/66 H 97 03/20/25 00:00 60 03/19/25 20:40 53 L 16 03/19/25 20:40 96 Room Air 03/19/25 20:00 54 L 03/19/25 19:41 97.6 F 56 L 18 154/80 H 94 Intake/Output Intake/Output: Intake & Output 03/17/25 03/18/25 03/19/25 03/20/25 23:59 23:59 23:59 23:59 Intake Total 7435 130 7991 1110 Output Total 0 2000 0 10 Balance 1130 -1020 1010 1100 Meds/Results Medications: Active Medications Generic Name Dose Route Start Last Admin Trade Name Freq PRN Reason Stop Dose Admin Acetaminophen 650 mg 03/17/25 20:15 03/18/25 20:08 Acetaminophen 325 Mg Tablet PO 650 mg Q6H PRN Administration Mild Pain (1-3) or Fever Albuterol 2.5 mg 03/16/25 23:13 Albuterol Sulfate Neb 2.5 Mg/3 Ml Inh INHALATION Q4-6H PRN Shortness Of Breath Or Wheezing Amiodarone HCl 200 mg 03/17/25 09:00 03/20/25 16:28 Amiodarone Hcl 200 Mg Tablet PO Not Given QAM ALINA Amoxicillin/Clavulanate Potassium 1 tablet 03/19/25 09:00 03/20/25 16:24 Amoxicillin/Clavulanate K 500-125 Mg Tab PO 03/23/25 21:01 Not Given Q12HR ALINA Apixaban 2.5 mg 03/16/25 23:15 03/20/25 16:24 Apixaban 2.5 Mg Tablet PO Not Given Q12HR ALINA Atorvastatin Calcium 20 mg 03/16/25 23:15 03/19/25 21:42 Atorvastatin 20 Mg Tablet PO 20 mg HS ALINA Administration Calcium Acetate 667 mg 03/17/25 08:00 03/20/25 16:57 Calcium Acetate 667 Mg Tablet PO 667 mg TIDWM ALINA Administration Dextrose 12.5 gm 03/16/25 23:19 Dextrose 50% 25 Gm/50 Ml Syringe IV PUSH PRN PRN Hypoglycemia Protocol Epoetin Jorge Alberto-epbx 10,000 units 03/20/25 18:17 03/20/25 13:01 Epoetin Jorge Alberto-Epbx 10,000 Units/Ml Vial IV PUSH 03/20/25 18:18 10,000 units ONCE ONE Administration Escitalopram Oxalate 5 mg 03/17/25 09:00 03/20/25 16:56 Escitalopram Oxalate 5 Mg Tablet PO Not Given DAILY ALINA Glucagon 1 mg 03/16/25 23:19 Glucagon For Inj 1 Mg Vial IM PRN PRN Hypoglycemia Protocol Glucose 15 gm 03/16/25 23:19 Glucose Oral Gel 15 Gm Of Glucse In 37.5 Gm Tube PO PRN PRN Hypoglycemia Protocol Hydralazine HCl 25 mg 03/16/25 23:20 03/20/25 16:57 Hydralazine Hcl 25 Mg Tablet PO 25 mg TID ALINA Administration Dextrose 1,000 mls @ 100 mls/hr 03/16/25 23:19 Dextrose 5% 1,000 Ml IVPB PRN PRN Hypoglycemia Protocol Albumin Human 50 mls @ 999 mls/hr 03/20/25 06:17 Albutein IVPB 04/19/25 06:16 Q10M PRN HYPOTENSION Insulin Aspart 2 - 5 units 03/17/25 08:00 03/20/25 16:58 Insulin Aspart (*Bkc) 100 Units/Ml SUB-Q Not Given TIDWM ALINA Protocol Insulin Glargine 14 units 03/17/25 18:00 03/20/25 16:59 Insulin Glargine (*Bkc) 100 Units/Ml SUB-Q 14 units QPM ALINA Administration Isosorbide Mononitrate 30 mg 03/17/25 09:00 03/20/25 16:56 Isosorbide Mononitrate 30 Mg Tab.Er.24h PO Not Given DAILY ALINA Levothyroxine Sodium 200 mcg 03/17/25 06:30 03/20/25 06:15 Levothyroxine Sodium 100 Mcg Tablet PO 200 mcg DAILY@0630 ALINA Administration Lidocaine/Prilocaine 1 each 03/18/25 06:43 Lidocaine/Prilocaine Cream 2.5-2.5% Tube TOPICAL WITH DIALYSIS PRN for dialysis Protocol Lorazepam 0.5 mg 03/16/25 23:13 03/20/25 10:57 Lorazepam (*Crx) 0.5 Mg Tablet PO 0.5 mg BID PRN Administration Anxiety Metoprolol Succinate 50 mg 03/17/25 09:00 03/20/25 16:28 Metoprolol Succinate Ext Rel 50 Mg Tabcr PO Not Given QAM ALINA Montelukast Sodium 10 mg 03/17/25 09:00 03/20/25 16:28 Montelukast Sodium 10 Mg Tablet PO Not Given DAILY ALINA Polyethylene Glycol 17 gm 03/20/25 09:00 03/20/25 16:25 Polyethylene Glycol 3350 17 Gm Powd.Pack PO Not Given QAM ALINA Ropinirole HCl 0.5 mg 03/16/25 23:20 03/20/25 16:57 Ropinirole Hcl 0.5 Mg Tablet PO 0.5 mg BID ALINA Administration Fluticasone/Salmeterol 2 puff 03/17/25 08:00 03/20/25 07:41 Fluticasone/Salmeterol 115-21 Mcg Inhaler 1 Puff INHALATION 2 puff Q12HRT ALINA Administration Senna/Docusate Sodium 1 tab 03/19/25 21:00 03/19/25 21:42 Senna/Docusate Sodium Tablet PO 1 tab HS ALINA Administration Trazodone HCl 50 mg 03/16/25 23:20 03/19/25 21:42 Trazodone Hcl 50 Mg Tablet PO 50 mg QHS ALINA Administration Radiology Results: ITS Impressions Head CT 03/16/25 16:58 IMPRESSION: No acute intracranial hemorrhage or extra axial fluid collections. Encephalomalacia changes within the left MCA territory reflective of remote infarct. Chronic white matter microangiopathic changes in the periventricular white matter. All CT scans at this facility are performed using low dose modulation techniques as appropriate to perform exam including the following: automated exposure control; use of iterative reconstruction technique; adjustment of the mA and/or kV according to patient size (this includes techniques or standardized protocols for targeted exams where dose is matched to indication/reason for exam). Labs Labs: Laboratory Tests 03/20/25 05:16 03/20/25 05:16 Calcium 8.4 Total Bilirubin 0.8 AST 22 ALT 13 Alkaline Phosphatase 110 Total Protein 7.1 Albumin 3.5
[2025-03-20] MEDS: CALCIUM ACETATE 667 MG TABLET PO (16:57)
[2025-03-20] MEDS: INSULIN GLARGINE (*BKC) 100 UNITS/ML 14 UNITS SUB-Q (16:59)
[2025-03-20] MEDS: SENNA/DOCUSATE SODIUM TABLET 1 TAB PO (22:08)
[2025-03-20] MEDS: APIXABAN 2.5 MG TABLET PO (22:08)
[2025-03-20] MEDS: ATORVASTATIN 20 MG TABLET PO (22:08)
[2025-03-21] VITALS (8 sets, daily range): BP systolic 149–163; BP diastolic 63–79; PULSE 55–62; RESP 14–22; TEMP 35.8–36.6; O2SAT 95–99
[2025-03-21 05:32] LABS: Hematocrit 32.0 % (37.0-47.0); Hemoglobin 9.2 g/dL (12.0-15.0); Mean Corpuscular HGB Conc 28.8 g/dl (32-36); Mean Corpuscular Hemoglobin 26.5 pg (26-34); Mean Corpuscular Volume 92.2 fl (80-100); Platelet Count Result 223 k/mm3 (150-375); Red Blood Count 3.47 M/mm3 (4.2-5.4); White Blood Count 6.6 K/mm3 (4.5-10.0)
[2025-03-21] MEDS: LEVOTHYROXINE SODIUM 100 MCG TABLET 200 MCG PO (05:50)
[2025-03-21 05:54] LABS: Alanine Aminotransferase 14 U/L (6-35); Albumin Level 3.3 g/dL (3.5-5.1); Alkaline Phosphatase 121 U/L (38-126); Anion Gap 8 mmol/L (4-12); Aspartate Amino Transferase 23 U/L (14-36); Bilirubin,Total 0.7 mg/dL (0.2-1.3); Blood Urea Nitrogen 19 mg/dL (7-17); Calcium 8.4 mg/dL (8.4-10.2); Carbon Dioxide 29 mmol/L (22-30); Chloride 100 mmol/L (98-107); Estimated CRCL calculation 12 ml/min; Estimated Glomerular Filt Rate 11; Glucose 124 mg/dL (65-110); Potassium 3.6 mmol/L (3.4-5.0); Sodium 137 mmol/L (137-145); Total Protein 7.0 g/dL (6.3-8.2)
[2025-03-21] MEDS: FLUTICASONE/SALMETEROL 115-21 MCG INHALER 1 PUFF 2 PUFF INHALATION ×2 (07:14→20:13)
--- NOTE | 2025-03-21 09:16 | PCPTNOTE ---
Attempted to see patient for PT, however patient unable to wake up enough to participate with PT.
[2025-03-21] MEDS: AMIODARONE HCL 200 MG TABLET PO (09:47)
[2025-03-21] MEDS: CALCIUM ACETATE 667 MG TABLET PO ×2 (09:47→12:39)
[2025-03-21] MEDS: MONTELUKAST SODIUM 10 MG TABLET PO (09:48)
[2025-03-21] MEDS: ISOSORBIDE MONONITRATE 30 MG TAB.ER.24H PO (09:48)
[2025-03-21] MEDS: ESCITALOPRAM OXALATE 5 MG TABLET PO (09:48)
[2025-03-21] MEDS: METOPROLOL SUCCINATE EXT REL 50 MG TABCR PO (09:48)
[2025-03-21] MEDS: APIXABAN 2.5 MG TABLET PO ×2 (09:48→20:46)
--- NOTE | 2025-03-21 12:49 | PM.IMPN ---
Progress Note: A&P Assessment and Plan (1) AMS (altered mental status): Qualifiers: Altered mental status type: unspecified Qualified Code(s): R41.82 - Altered mental status, unspecified Code(s): R41.82 - Altered mental status, unspecified Status: Acute Assessment and Plan: Per patients the patient seemed to have difficulty figuring out how to pull up her pants then difficulty understanding how to get her food to her mouth. She was sitting on a stool at around 15:00 and it slid out from under. She struck the right side her head on the stool. Chronically on Eliquis for stroke prophylaxis. The patient does have baseline right-sided deficits and expressive aphasia that is unchanged from baseline. Head CT: No acute intracranial hemorrhage or extra axial fluid collections. Encephalomalacia changes within the left MCA territory reflective of remote infarct. Chronic white matter microangiopathic changes in the periventricular white matter. Patient remains at her baseline mental status with expressive aphasia. (2) Acute UTI: Code(s): N39.0 - Urinary tract infection, site not specified Status: Acute Assessment and Plan: - UA concerning for infection - UC obtained on 03/17: negative - previous micro reviewed 01/2025: ecoli pansensitive 08/2024: proteus mirabilis with resistance to cipro, macrobid, bactrim and cefazolin - started on Rocephin on 03/17, discontinued on 03/18. Given patients increased confusion concerning for metabolic encephalopathy as no noted abnormalities on imaging and improvement with antibiotics will continue to treat for a UTI since patient cannot disclose if symptomatic. Started on Augmentin on 03/19, course to be completed on 03/23. (3) Hypertension: Qualifiers: Hypertension type: unspecified Qualified Code(s): I10 - Essential (primary) hypertension Code(s): I10 - Essential (primary) hypertension Status: Chronic Assessment and Plan: Chronic, continue home medications - metoprolol 50 mg daily - imdur 30 mg daily - hydralazine 25 mg TID - blood pressures reviewed and stable, continue to monitor (4) ESRD on hemodialysis: Code(s): N18.6 - End stage renal disease; Z99.2 - Dependence on renal dialysis Status: Acute Assessment and Plan: Chronic Hemodialysis Sunday Nephrology consulted 03/21- cr/bun 4.03/25 today (5) Diabetes: Code(s): E11.9 - Type 2 diabetes mellitus without complications Status: Acute Assessment and Plan: - hypoglycemia protocol - POC blood glucose ACHS - home medication - lantus 18 units and SSI - correct regimen ordered - 14 units lantus (20% decrease from home dose) and low-dose sliding scale insulin - A1C 6.5 Glucose stable. Continue to monitor. (6) Chronic wound: Code(s): T14.8XXA - Other injury of unspecified body region, initial encounter Status: Acute Assessment and Plan: Patient has a chronic wound to the posterior ankle/achilles region that does not appear infection. No warmth, exudate, or erythema present. 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 Pt is seen and examined. She is confused, baseline expressive aphasia. Had dialysis and remained drowsy/sleepy after but more alert this morning. Care coordination following for placement, nursing reports no acute events. Review of Systems Review of Systems: Limited due to chronic expressive aphasia. ROS unobtainable: Yes unobtainable due to mental status (chronic expressive aphasia ) Exam Narrative: General:female in no acute respiratory distress who is nontoxic appearing, lying semi recumbent in bed receiving dialysis HEENT: Normocephalic. Atraumatic. Extraocular movement intact. Sclera clear and anicteric. No facial asymmetry. Chest: Lungs are clear to auscultation bilaterally. No wheezes or crackles. CV: Heart was regular rate and rhythm. Abd: Abdomen was soft. Nontender. Nondistended. Positive bowel sounds. Ext: No clubbing, cyanosis or edema. Chronic wound to the right Achilles region without redness, warmth, or drainage. Neuro: Patient is alert. Chronic expressive aphasia. Moving all extremities. Chronic right upper extremity weakness. Const: General: comfortable Other: Chronically debilitated, obese, no acute distress Skin: Other: Chronic ulceration to the posterior left calcaneus, no increased warmth or drainage, otherwise generalized pallor noted Neuro: Other: The patient is alert arouses easily to verbal stimuli will occasionally say I ordered 2 that is understandable but otherwise speech is gibberish with no distinguishable words, she has chronic right facial droop and right upper extremity and right lower extremity weakness due to prior CVA Extrem: Other: 3+ pathology laboratory director strength on the right 2+ strength on plantar flexion on the right, 5/5 pathology laboratory director strength on the left and 4/5 plantar and dorsiflexion melena Psych: Other: Pleasant and cooperative otherwise unable to truly assess patient's status Objective Data Vital Signs Vital Signs: Vital Signs - 24 hr 03/20/25 13:00 03/20/25 13:15 03/20/25 13:35 Temperature Pulse Rate 56 L 57 L 56 L Respiratory Rate Blood Pressure 165/92 H 150/68 H 153/56 H Pulse Oximetry Oxygen Delivery 03/20/25 13:51 03/20/25 14:00 03/20/25 16:00 Temperature 97.5 F L 98.4 F Pulse Rate 58 L 58 L 56 L Respiratory Rate 18 18 Blood Pressure 150/83 H 147/90 H Pulse Oximetry 98 100 Oxygen Delivery 03/20/25 20:00 03/20/25 20:25 03/20/25 20:25 Temperature Pulse Rate 58 L 58 L Respiratory Rate Blood Pressure Pulse Oximetry 93 Oxygen Delivery Room Air 03/20/25 21:51 03/20/25 22:00 03/21/25 00:00 Temperature 98.4 F Pulse Rate 64 60 Respiratory Rate 16 Blood Pressure 181/59 H Pulse Oximetry 98 Oxygen Delivery Room Air 03/21/25 04:00 03/21/25 04:00 03/21/25 09:47 Temperature 97.4 F L Pulse Rate 62 61 55 L Respiratory Rate 14 Blood Pressure 163/63 H Pulse Oximetry 95 Oxygen Delivery 03/21/25 09:48 Temperature Pulse Rate 56 L Respiratory Rate Blood Pressure Pulse Oximetry Oxygen Delivery Intake/Output Intake/Output: Intake & Output 03/18/25 03/19/25 03/20/25 03/21/25 23:59 23:59 23:59 23:59 Intake Total 980 1010 2690 500 Output Total 2000 0 10 Balance -1020 1010 2680 500 Meds/Results Medications: Active Medications Generic Name Dose Route Start Last Admin Trade Name Freq PRN Reason Stop Dose Admin Acetaminophen 650 mg 03/17/25 20:15 03/18/25 20:08 Acetaminophen 325 Mg Tablet PO 650 mg Q6H PRN Administration Mild Pain (1-3) or Fever Albuterol 2.5 mg 03/16/25 23:13 Albuterol Sulfate Neb 2.5 Mg/3 Ml Inh INHALATION Q4-6H PRN Shortness Of Breath Or Wheezing Amiodarone HCl 200 mg 03/17/25 09:00 03/21/25 09:47 Amiodarone Hcl 200 Mg Tablet PO 200 mg QAM ALINA Administration Amoxicillin/Clavulanate Potassium 1 tablet 03/19/25 09:00 03/21/25 09:48 Amoxicillin/Clavulanate K 500-125 Mg Tab PO 03/23/25 21:01 1 tablet Q12HR ALINA Administration Apixaban 2.5 mg 03/16/25 23:15 03/21/25 09:48 Apixaban 2.5 Mg Tablet PO 2.5 mg Q12HR ALINA Administration Atorvastatin Calcium 20 mg 03/16/25 23:15 03/20/25 22:08 Atorvastatin 20 Mg Tablet PO 20 mg HS ALINA Administration Calcium Acetate 667 mg 03/17/25 08:00 03/21/25 12:39 Calcium Acetate 667 Mg Tablet PO 667 mg TIDWM ALINA Administration Dextrose 12.5 gm 03/16/25 23:19 Dextrose 50% 25 Gm/50 Ml Syringe IV PUSH PRN PRN Hypoglycemia Protocol Escitalopram Oxalate 5 mg 03/17/25 09:00 03/21/25 09:48 Escitalopram Oxalate 5 Mg Tablet PO 5 mg DAILY ALINA Administration Glucagon 1 mg 03/16/25 23:19 Glucagon For Inj 1 Mg Vial IM PRN PRN Hypoglycemia Protocol Glucose 15 gm 03/16/25 23:19 Glucose Oral Gel 15 Gm Of Glucse In 37.5 Gm Tube PO PRN PRN Hypoglycemia Protocol Hydralazine HCl 25 mg 03/16/25 23:20 03/21/25 12:39 Hydralazine Hcl 25 Mg Tablet PO 25 mg TID ALINA Administration Dextrose 1,000 mls @ 100 mls/hr 03/16/25 23:19 Dextrose 5% 1,000 Ml IVPB PRN PRN Hypoglycemia Protocol Albumin Human 50 mls @ 999 mls/hr 03/20/25 06:17 Albutein IVPB 04/19/25 06:16 Q10M PRN HYPOTENSION Insulin Aspart 2 - 5 units 03/17/25 08:00 03/21/25 12:39 Insulin Aspart (*Bkc) 100 Units/Ml SUB-Q Not Given TIDWM ALINA Protocol Insulin Glargine 14 units 03/17/25 18:00 03/20/25 16:59 Insulin Glargine (*Bkc) 100 Units/Ml SUB-Q 14 units QPM ALINA Administration Isosorbide Mononitrate 30 mg 03/17/25 09:00 03/21/25 09:48 Isosorbide Mononitrate 30 Mg Tab.Er.24h PO 30 mg DAILY ALINA Administration Levothyroxine Sodium 200 mcg 03/17/25 06:30 03/21/25 05:50 Levothyroxine Sodium 100 Mcg Tablet PO 200 mcg DAILY@0630 ALINA Administration Lidocaine/Prilocaine 1 each 03/18/25 06:43 Lidocaine/Prilocaine Cream 2.5-2.5% Tube TOPICAL WITH DIALYSIS PRN for dialysis Protocol Lorazepam 0.5 mg 03/16/25 23:13 03/20/25 10:57 Lorazepam (*Crx) 0.5 Mg Tablet PO 0.5 mg BID PRN Administration Anxiety Metoprolol Succinate 50 mg 03/17/25 09:00 03/21/25 09:48 Metoprolol Succinate Ext Rel 50 Mg Tabcr PO 50 mg QAM ALINA Administration Montelukast Sodium 10 mg 03/17/25 09:00 03/21/25 09:48 Montelukast Sodium 10 Mg Tablet PO 10 mg DAILY ALINA Administration Polyethylene Glycol 17 gm 03/20/25 09:00 03/21/25 09:47 Polyethylene Glycol 3350 17 Gm Powd.Pack PO 17 gm QAM ALINA Administration Ropinirole HCl 0.5 mg 03/16/25 23:20 03/21/25 09:48 Ropinirole Hcl 0.5 Mg Tablet PO 0.5 mg BID ALINA Administration Fluticasone/Salmeterol 2 puff 03/17/25 08:00 03/21/25 07:14 Fluticasone/Salmeterol 115-21 Mcg Inhaler 1 Puff INHALATION 2 puff Q12HRT ALINA Administration Senna/Docusate Sodium 1 tab 03/19/25 21:00 03/20/25 22:08 Senna/Docusate Sodium Tablet PO 1 tab HS ALINA Administration Trazodone HCl 50 mg 03/16/25 23:20 03/20/25 22:08 Trazodone Hcl 50 Mg Tablet PO 50 mg QHS ALINA Administration Radiology Results: ITS Impressions Head CT 03/16/25 16:58 IMPRESSION: No acute intracranial hemorrhage or extra axial fluid collections. Encephalomalacia changes within the left MCA territory reflective of remote infarct. Chronic white matter microangiopathic changes in the periventricular white matter. All CT scans at this facility are performed using low dose modulation techniques as appropriate to perform exam including the following: automated exposure control; use of iterative reconstruction technique; adjustment of the mA and/or kV according to patient size (this includes techniques or standardized protocols for targeted exams where dose is matched to indication/reason for exam). Labs Labs: Laboratory Results - last 24 hr 03/20/25 03/20/25 03/21/25 16:38 20:05 05:03 WBC 6.6 RBC 3.47 L Hgb 9.2 L Hct 32.0 L MCV 92.2 MCH 26.5 MCHC 28.8 L RDW 19.4 H Plt Count 223 MPV 9.9 Sodium 137 Potassium 3.6 Chloride 100 Carbon Dioxide 29 Anion Gap 8 BUN 19 H Creatinine 4.11 H Estim Creat Clear Calc 12 Estimated GFR 11 L Glucose 124 H POC Capillary Glucose 133 H 114 H Calcium 8.4 Total Bilirubin 0.7 AST 23 ALT 14 Alkaline Phosphatase 121 Total Protein 7.0 Albumin 3.3 L 03/21/25 03/21/25 08:08 11:34 WBC RBC Hgb Hct MCV MCH MCHC RDW Plt Count MPV Sodium Potassium Chloride Carbon Dioxide Anion Gap BUN Creatinine Estim Creat Clear Calc Estimated GFR Glucose POC Capillary Glucose 119 H 111 H Calcium Total Bilirubin AST ALT Alkaline Phosphatase Total Protein Albumin Quality VTE Prophylaxis VTE prophylaxis: pharmacologic ordered
--- NOTE | 2025-03-21 13:48 | P.PNNP_ITS ---
Progress Note: A&P Assessment and Plan (1) End stage renal disease: Code(s): N18.6 - End stage renal disease Status: Chronic Assessment and Plan: * HD yesterday * continue M/W/F outpatient dialysis schedule * follow electrolytes, volume status, and clearance (2) AMS (altered mental status): Qualifiers: Altered mental status type: unspecified Qualified Code(s): R41.82 - Altered mental status, unspecified Code(s): R41.82 - Altered mental status, unspecified Status: Acute Assessment and Plan: * clinical improvement noted if not back to baseline * appears to be doing better at this time * head CT negative * follow mentation (3) UTI (urinary tract infection): Code(s): N39.0 - Urinary tract infection, site not specified Status: Acute Assessment and Plan: * admission UA highly suggestive * follow culture data - negative to date * on antibiotics * despite negative culture, improvement in #2 noted with antibiotic therapy (4) Anemia: Code(s): D64.9 - Anemia, unspecified Status: Chronic Assessment and Plan: * due to ESRD * RADHA/Epogen with HD * follow trend of H/H (5) Hypertension: Qualifiers: Hypertension type: unspecified Qualified Code(s): I10 - Essential (primary) hypertension Code(s): I10 - Essential (primary) hypertension Status: Chronic Assessment and Plan: * reasonable control * resume home BP medications * follow trend of hemodynamics (6) Type 2 diabetes mellitus with hyperglycemia: Qualifiers: Diabetes mellitus senior living insulin use: with oil heaterman use Qualified Code(s): E11.65 - Type 2 diabetes mellitus with hyperglycemia; 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 L Subjective Date/time seen: 03/21/25 13:48 Interval history: Follow-up for end stage renal disease on hemodialysis. Tolerated dialysis treatment yesterday without any issue or problems; no apparent distress noted but difficult to fully assess due to her expressive aphasia; no issues/events overnight or earlier this morning. Exam 2 Narrative: General: elderly but WD/WN female in NAD Heart: normal S1 and S2; no rub Lungs: clear anteriorly; decreased at bases Abdomen: soft, nontender, nondistended, positive bowel sounds Extremities: no cyanosis or clubbing; trace edema Skin: no nodules Objective Data Vital Signs Vital Signs: Vital Signs Temp Pulse Resp BP Pulse Ox O2 Del Method 03/21/25 13:00 96.4 F L 61 22 H 149/79 H 99 03/21/25 09:48 56 L 03/21/25 09:47 55 L 03/21/25 09:45 95 Room Air 03/21/25 04:00 97.4 F L 61 14 163/63 H 95 03/21/25 04:00 62 03/21/25 00:00 60 03/20/25 22:00 Room Air 03/20/25 21:51 98.4 F 64 16 181/59 H 98 03/20/25 20:25 58 L 03/20/25 20:25 93 Room Air 03/20/25 20:00 58 L Intake/Output Intake/Output: Intake & Output 03/18/25 03/19/25 03/20/25 03/21/25 23:59 23:59 23:59 23:59 Intake Total 980 1010 2690 1530 Output Total 2000 0 10 Balance -1020 1010 2680 1530 Meds/Results Medications: Active Medications Generic Name Dose Route Start Last Admin Trade Name Louisq PRN Reason Stop Dose Admin Acetaminophen 650 mg 03/17/25 20:15 03/18/25 20:08 Acetaminophen 325 Mg Tablet PO 650 mg Q6H PRN Administration Mild Pain (1-3) or Fever Albuterol 2.5 mg 03/16/25 23:13 Albuterol Sulfate Neb 2.5 Mg/3 Ml Inh INHALATION Q4-6H PRN Shortness Of Breath Or Wheezing Amiodarone HCl 200 mg 03/17/25 09:00 03/21/25 09:47 Amiodarone Hcl 200 Mg Tablet PO 200 mg QAM ALINA Administration Amoxicillin/Clavulanate Potassium 1 tablet 03/19/25 09:00 03/21/25 09:48 Amoxicillin/Clavulanate K 500-125 Mg Tab PO 03/23/25 21:01 1 tablet Q12HR ALINA Administration Apixaban 2.5 mg 03/16/25 23:15 03/21/25 09:48 Apixaban 2.5 Mg Tablet PO 2.5 mg Q12HR ALINA Administration Atorvastatin Calcium 20 mg 03/16/25 23:15 03/20/25 22:08 Atorvastatin 20 Mg Tablet PO 20 mg HS ALINA Administration Calcium Acetate 667 mg 03/17/25 08:00 03/21/25 17:42 Calcium Acetate 667 Mg Tablet PO 667 mg TIDWM ALINA Administration Dextrose 12.5 gm 03/16/25 23:19 Dextrose 50% 25 Gm/50 Ml Syringe IV PUSH PRN PRN Hypoglycemia Protocol Escitalopram Oxalate 5 mg 03/17/25 09:00 03/21/25 09:48 Escitalopram Oxalate 5 Mg Tablet PO 5 mg DAILY ALINA Administration Glucagon 1 mg 03/16/25 23:19 Glucagon For Inj 1 Mg Vial IM PRN PRN Hypoglycemia Protocol Glucose 15 gm 03/16/25 23:19 Glucose Oral Gel 15 Gm Of Glucse In 37.5 Gm Tube PO PRN PRN Hypoglycemia Protocol Hydralazine HCl 25 mg 03/16/25 23:20 03/21/25 17:42 Hydralazine Hcl 25 Mg Tablet PO 25 mg TID ALINA Administration Dextrose 1,000 mls @ 100 mls/hr 03/16/25 23:19 Dextrose 5% 1,000 Ml IVPB PRN PRN Hypoglycemia Protocol Albumin Human 50 mls @ 999 mls/hr 03/20/25 06:17 Albutein IVPB 04/19/25 06:16 Q10M PRN HYPOTENSION Insulin Aspart 2 - 5 units 03/17/25 08:00 03/21/25 17:41 Insulin Aspart (*Bkc) 100 Units/Ml SUB-Q Not Given TIDWM ALINA Protocol Insulin Glargine 14 units 03/17/25 18:00 03/21/25 17:43 Insulin Glargine (*Bkc) 100 Units/Ml SUB-Q 14 units QPM ALINA Administration Isosorbide Mononitrate 30 mg 03/17/25 09:00 03/21/25 09:48 Isosorbide Mononitrate 30 Mg Tab.Er.24h PO 30 mg DAILY ALINA Administration Levothyroxine Sodium 200 mcg 03/17/25 06:30 03/21/25 05:50 Levothyroxine Sodium 100 Mcg Tablet PO 200 mcg DAILY@0630 ALINA Administration Lidocaine/Prilocaine 1 each 03/18/25 06:43 Lidocaine/Prilocaine Cream 2.5-2.5% Tube TOPICAL WITH DIALYSIS PRN for dialysis Protocol Lorazepam 0.5 mg 03/16/25 23:13 03/20/25 10:57 Lorazepam (*Crx) 0.5 Mg Tablet PO 0.5 mg BID PRN Administration Anxiety Metoprolol Succinate 50 mg 03/17/25 09:00 03/21/25 09:48 Metoprolol Succinate Ext Rel 50 Mg Tabcr PO 50 mg QAM ALINA Administration Montelukast Sodium 10 mg 03/17/25 09:00 03/21/25 09:48 Montelukast Sodium 10 Mg Tablet PO 10 mg DAILY ALINA Administration Polyethylene Glycol 17 gm 03/20/25 09:00 03/21/25 09:47 Polyethylene Glycol 3350 17 Gm Powd.Pack PO 17 gm QAM ALINA Administration Ropinirole HCl 0.5 mg 03/16/25 23:20 03/21/25 17:43 Ropinirole Hcl 0.5 Mg Tablet PO 0.5 mg BID ALINA Administration Fluticasone/Salmeterol 2 puff 03/17/25 08:00 03/21/25 07:14 Fluticasone/Salmeterol 115-21 Mcg Inhaler 1 Puff INHALATION 2 puff Q12HRT ALINA Administration Senna/Docusate Sodium 1 tab 03/19/25 21:00 03/20/25 22:08 Senna/Docusate Sodium Tablet PO 1 tab HS ALINA Administration Trazodone HCl 50 mg 03/16/25 23:20 03/20/25 22:08 Trazodone Hcl 50 Mg Tablet PO 50 mg QHS ALINA Administration Radiology Results: ITS Impressions Head CT 03/16/25 16:58 IMPRESSION: No acute intracranial hemorrhage or extra axial fluid collections. Encephalomalacia changes within the left MCA territory reflective of remote infarct. Chronic white matter microangiopathic changes in the periventricular white matter. All CT scans at this facility are performed using low dose modulation techniques as appropriate to perform exam including the following: automated exposure control; use of iterative reconstruction technique; adjustment of the mA and/or kV according to patient size (this includes techniques or standardized protocols for targeted exams where dose is matched to indication/reason for exam). Labs Labs: Laboratory Tests 03/21/25 05:03 03/21/25 05:03 Calcium 8.4 Total Bilirubin 0.7 AST 23 ALT 14 Alkaline Phosphatase 121 Total Protein 7.0 Albumin 3.3 L
--- NOTE | 2025-03-21 15:53 | PCPTNOTE ---
Attempted to see patient for PT, however patient unable to wake up enough to participate with PT. Patient would open eyes to name, however unable to keep eyes open.
[2025-03-21] MEDS: INSULIN GLARGINE (*BKC) 100 UNITS/ML 14 UNITS SUB-Q (17:43)
--- NOTE | 2025-03-21 18:31 | PC.NURSE ---
Unable to administer 1700 medication, patient not able to swallow due to fatigue.
[2025-03-21] MEDS: ATORVASTATIN 20 MG TABLET PO (20:46)
[2025-03-22 04:03] VITALS: BP 161/74; PULSE 58; RESP 16; TEMP 36.6; O2SAT 99
[2025-03-22 05:46] LABS: Hematocrit 31.0 % (37.0-47.0); Hemoglobin 8.9 g/dL (12.0-15.0); Mean Corpuscular HGB Conc 28.7 g/dl (32-36); Mean Corpuscular Hemoglobin 26.4 pg (26-34); Mean Corpuscular Volume 92.0 fl (80-100); Platelet Count Result 223 k/mm3 (150-375); Red Blood Count 3.37 M/mm3 (4.2-5.4); White Blood Count 6.7 K/mm3 (4.5-10.0)
[2025-03-22] MEDS: LEVOTHYROXINE SODIUM 100 MCG TABLET 200 MCG PO (05:59)
[2025-03-22 06:14] LABS: Alanine Aminotransferase 12 U/L (6-35); Albumin Level 3.4 g/dL (3.5-5.1); Alkaline Phosphatase 110 U/L (38-126); Anion Gap 8 mmol/L (4-12); Aspartate Amino Transferase 22 U/L (14-36); Bilirubin,Total 1.1 mg/dL (0.2-1.3); Blood Urea Nitrogen 26 mg/dL (7-17); Calcium 8.2 mg/dL (8.4-10.2); Carbon Dioxide 29 mmol/L (22-30); Chloride 100 mmol/L (98-107); Estimated CRCL calculation 9 ml/min; Estimated Glomerular Filt Rate 8; Glucose 74 mg/dL (65-110); Potassium 4.0 mmol/L (3.4-5.0); Sodium 137 mmol/L (137-145); Total Protein 6.9 g/dL (6.3-8.2)
--- NOTE | 2025-03-22 08:39 | P.PNIM_ITS ---
Progress Note: A&P Assessment and Plan (1) AMS (altered mental status): Qualifiers: Altered mental status type: unspecified Qualified Code(s): R41.82 - Altered mental status, unspecified Code(s): R41.82 - Altered mental status, unspecified Status: Acute Assessment and Plan: Per patients the patient seemed to have difficulty figuring out how to pull up her pants then difficulty understanding how to get her food to her mouth. She was sitting on a stool at around 15:00 and it slid out from under. She struck the right side her head on the stool. Chronically on Eliquis for stroke prophylaxis. The patient does have baseline right-sided deficits and expressive aphasia that is unchanged from baseline. Head CT: No acute intracranial hemorrhage or extra axial fluid collections. Encephalomalacia changes within the left MCA territory reflective of remote infarct. Chronic white matter microangiopathic changes in the periventricular white matter. Patient remains at her baseline mental status with expressive aphasia. (2) Acute UTI: Code(s): N39.0 - Urinary tract infection, site not specified Status: Acute Assessment and Plan: - UA concerning for infection - UC obtained on 03/17: negative - previous micro reviewed 01/2025: ecoli pansensitive 08/2024: proteus mirabilis with resistance to cipro, macrobid, bactrim and cefazolin - started on Rocephin on 03/17, discontinued on 03/18. Given patients increased confusion concerning for metabolic encephalopathy as no noted abnormalities on imaging and improvement with antibiotics will continue to treat for a UTI since patient cannot disclose if symptomatic. Started on Augmentin on 03/19, course to be completed on 03/23. (3) Hypertension: Qualifiers: Hypertension type: unspecified Qualified Code(s): I10 - Essential (primary) hypertension Code(s): I10 - Essential (primary) hypertension Status: Chronic Assessment and Plan: Chronic, continue home medications - metoprolol 50 mg daily - imdur 30 mg daily - hydralazine 25 mg TID - blood pressures reviewed and stable, continue to monitor (4) ESRD on hemodialysis: Code(s): N18.6 - End stage renal disease; Z99.2 - Dependence on renal dialysis Status: Acute Assessment and Plan: Chronic Hemodialysis Sunday Nephrology consulted (5) Diabetes: Code(s): E11.9 - Type 2 diabetes mellitus without complications Status: Acute Assessment and Plan: - hypoglycemia protocol - POC blood glucose ACHS - home medication - lantus 18 units and SSI - correct regimen ordered - 14 units lantus (20% decrease from home dose) and low-dose sliding scale insulin - A1C 6.5 Low glucose level on am labs, responded well with juice. Per RN patient did not eat much yesterday. Will continue to monitor. (6) Chronic wound: Code(s): T14.8XXA - Other injury of unspecified body region, initial encounter Status: Acute Assessment and Plan: Patient has a chronic wound to the posterior ankle/achilles region that does not appear infection. No warmth, exudate, or erythema present. 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 Patient is pleasant sitting up comfortably in her chair. Per RN patient did not eat much overnight has had a low glucose level this morning that responded well with juice and remains stable on recheck. Care coordination continues to follow for placement. Review of Systems Review of Systems: Limited due to chronic expressive aphasia. ROS unobtainable: Yes unobtainable due to mental status (chronic expressive aphasia ) Exam Narrative: AF HR 56 RR 16 SPO2 99 BP 161/74 General:female in no acute respiratory distress who is nontoxic appearing, sitting up in chair HEENT: Normocephalic. Atraumatic. Extraocular movement intact. Sclera clear and anicteric. No facial asymmetry. Chest: Lungs are clear to auscultation bilaterally. No wheezes or crackles. CV: Heart was regular rate and rhythm. Abd: Abdomen was soft. Nontender. Nondistended. Positive bowel sounds. Ext: No clubbing, cyanosis or edema. Chronic wound to the right Achilles region without redness, warmth, or drainage. Neuro: Patient is alert. Chronic expressive aphasia. Moving all extremities. Chronic right upper extremity weakness. Const: General: comfortable Other: Chronically debilitated, obese, no acute distress Skin: Other: Chronic ulceration to the posterior left calcaneus, no increased warmth or drainage, otherwise generalized pallor noted Neuro: Other: The patient is alert arouses easily to verbal stimuli will occasionally say I ordered 2 that is understandable but otherwise speech is gibberish with no distinguishable words, she has chronic right facial droop and right upper extremity and right lower extremity weakness due to prior CVA Extrem: Other: 3+ network technician strength on the right 2+ strengt h on plantar flexion on the right, 5/5 network technician strength on the left and 4/5 plantar and dorsiflexion melena Psych: Other: Pleasant and cooperative otherwise unable to truly assess patient's status Objective Data Vital Signs Vital Signs: Vital Signs - 24 hr 03/21/25 09:45 03/21/25 09:47 03/21/25 09:48 Temperature Pulse Rate 55 L 56 L Respiratory Rate Blood Pressure Pulse Oximetry 95 Oxygen Delivery Room Air 03/21/25 14:00 03/21/25 20:14 03/21/25 20:35 Temperature 96.4 F L 97.9 F Pulse Rate 61 60 60 Respiratory Rate 22 H 18 16 Blood Pressure 149/79 H 153/73 H Pulse Oximetry 99 95 Oxygen Delivery 03/22/25 04:03 Temperature 97.9 F Pulse Rate 58 L Respiratory Rate 16 Blood Pressure 161/74 H Pulse Oximetry 99 Oxygen Delivery Intake/Output Intake/Output: Intake & Output 03/19/25 03/20/25 03/21/25 03/22/25 23:59 23:59 23:59 23:59 Intake Total 1010 2690 1530 Output Total 0 10 Balance 1010 2680 1530 Meds/Results Medications: Active Medications Generic Name Dose Route Start Last Admin Trade Name Freq PRN Reason Stop Dose Admin Acetaminophen 650 mg 03/17/25 20:15 03/18/25 20:08 Acetaminophen 325 Mg Tablet PO 650 mg Q6H PRN Administration Mild Pain (1-3) or Fever Albuterol 2.5 mg 03/16/25 23:13 Albuterol Sulfate Neb 2.5 Mg/3 Ml Inh INHALATION Q4-6H PRN Shortness Of Breath Or Wheezing Amiodarone HCl 200 mg 03/17/25 09:00 03/21/25 09:47 Amiodarone Hcl 200 Mg Tablet PO 200 mg QAM ALINA Administration Amoxicillin/Clavulanate Potassium 1 tablet 03/19/25 09:00 03/21/25 20:46 Amoxicillin/Clavulanate K 500-125 Mg Tab PO 03/23/25 21:01 1 tablet Q12HR ALINA Administration Apixaban 2.5 mg 03/16/25 23:15 03/21/25 20:46 Apixaban 2.5 Mg Tablet PO 2.5 mg Q12HR ALINA Administration Atorvastatin Calcium 20 mg 03/16/25 23:15 03/21/25 20:46 Atorvastatin 20 Mg Tablet PO 20 mg HS ALINA Administration Calcium Acetate 667 mg 03/17/25 08:00 03/21/25 18:28 Calcium Acetate 667 Mg Tablet PO Not Given TIDWM ALINA Dextrose 12.5 gm 03/16/25 23:19 Dextrose 50% 25 Gm/50 Ml Syringe IV PUSH PRN PRN Hypoglycemia Protocol Escitalopram Oxalate 5 mg 03/17/25 09:00 03/21/25 09:48 Escitalopram Oxalate 5 Mg Tablet PO 5 mg DAILY ALINA Administration Glucagon 1 mg 03/16/25 23:19 Glucagon For Inj 1 Mg Vial IM PRN PRN Hypoglycemia Protocol Glucose 15 gm 03/16/25 23:19 Glucose Oral Gel 15 Gm Of Glucse In 37.5 Gm Tube PO PRN PRN Hypoglycemia Protocol Hydralazine HCl 25 mg 03/16/25 23:20 03/21/25 18:30 Hydralazine Hcl 25 Mg Tablet PO Not Given TID ALINA Dextrose 1,000 mls @ 100 mls/hr 03/16/25 23:19 Dextrose 5% 1,000 Ml IVPB PRN PRN Hypoglycemia Protocol Albumin Human 50 mls @ 999 mls/hr 03/20/25 06:17 Albutein IVPB 04/19/25 06:16 Q10M PRN HYPOTENSION Insulin Aspart 2 - 5 units 03/17/25 08:00 03/22/25 08:20 Insulin Aspart (*Bkc) 100 Units/Ml SUB-Q Not Given TIDWM [facility] Protocol Insulin Glargine 14 units 03/17/25 18:00 03/21/25 17:43 Insulin Glargine (*Bkc) 100 Units/Ml SUB-Q 14 units QPM ALINA Administration Isosorbide Mononitrate 30 mg 03/17/25 09:00 03/21/25 09:48 Isosorbide Mononitrate 30 Mg Tab.Er.24h PO 30 mg DAILY ALINA Administration Levothyroxine Sodium 200 mcg 03/17/25 06:30 03/22/25 05:59 Levothyroxine Sodium 100 Mcg Tablet PO 200 mcg DAILY@0630 ALINA Administration Lidocaine/Prilocaine 1 each 03/18/25 06:43 Lidocaine/Prilocaine Cream 2.5-2.5% Tube TOPICAL WITH DIALYSIS PRN for dialysis Protocol Lorazepam 0.5 mg 03/16/25 23:13 03/20/25 10:57 Lorazepam (*Crx) 0.5 Mg Tablet PO 0.5 mg BID PRN Administration Anxiety Metoprolol Succinate 50 mg 03/17/25 09:00 03/21/25 09:48 Metoprolol Succinate Ext Rel 50 Mg Tabcr PO 50 mg QAM ALINA Administration Montelukast Sodium 10 mg 03/17/25 09:00 03/21/25 09:48 Montelukast Sodium 10 Mg Tablet PO 10 mg DAILY ALINA Administration Polyethylene Glycol 17 gm 03/20/25 09:00 03/21/25 09:47 Polyethylene Glycol 3350 17 Gm Powd.Pack PO 17 gm QAM ALINA Administration Ropinirole HCl 0.5 mg 03/16/25 23:20 03/21/25 18:31 Ropinirole Hcl 0.5 Mg Tablet PO Not Given BID ALINA Fluticasone/Salmeterol 2 puff 03/17/25 08:00 03/21/25 20:13 Fluticasone/Salmeterol 115-21 Mcg Inhaler 1 Puff INHALATION 2 puff Q12HRT ALINA Administration Senna/Docusate Sodium 1 tab 03/19/25 21:00 03/21/25 20:46 Senna/Docusate Sodium Tablet PO Not Given HS ALINA Trazodone HCl 50 mg 03/16/25 23:20 03/21/25 20:46 Trazodone Hcl 50 Mg Tablet PO 50 mg QHS ALINA Administration Radiology Results: ITS Impressions Head CT 03/16/25 16:58 IMPRESSION: No acute intracranial hemorrhage or extra axial fluid collections. Encephalomalacia changes within the left MCA territory reflective of remote infarct. Chronic white matter microangiopathic changes in the periventricular white matter. All CT scans at this facility are performed using low dose modulation techniques as appropriate to perform exam including the following: automated exposure control; use of iterative reconstruction technique; adjustment of the mA and/or kV according to patient size (this includes techniques or standardized protocols for targeted exams where dose is matched to indication/reason for e xam). Labs Labs: Laboratory Results - last 24 hr 03/21/25 03/21/25 03/21/25 11:34 16:58 20:34 WBC RBC Hgb Hct MCV MCH MCHC RDW Plt Count MPV Sodium Potassium Chloride Carbon Dioxide Anion Gap BUN Creatinine Estim Creat Clear Calc Estimated GFR Glucose POC Capillary Glucose 111 H 152 H 154 H Calcium Total Bilirubin AST ALT Alkaline Phosphatase Total Protein Albumin 03/22/25 03/22/25 05:10 07:56 WBC 6.7 RBC 3.37 L Hgb 8.9 L Hct 31.0 L MCV 92.0 MCH 26.4 MCHC 28.7 L RDW 19.4 H Plt Count 223 MPV 10.2 Sodium 137 Potassium 4.0 Chloride 100 Carbon Dioxide 29 Anion Gap 8 BUN 26 H Creatinine 5.43 H Estim Creat Clear Calc 9 Estimated GFR 8 L Glucose 74 POC Capillary Glucose 63 L Calcium 8.2 L Total Bilirubin 1.1 AST 22 ALT 12 Alkaline Phosphatase 110 Total Protein 6.9 Albumin 3.4 L Quality VTE Prophylaxis VTE prophylaxis: pharmacologic ordered
[2025-03-22 09:20] VITALS: PULSE 56; O2SAT 99
[2025-03-22] MEDS: CALCIUM ACETATE 667 MG TABLET PO ×3 (09:22→17:38)
[2025-03-22 09:23] VITALS: PULSE 58
[2025-03-22] MEDS: METOPROLOL SUCCINATE EXT REL 50 MG TABCR PO (09:23)
[2025-03-22] MEDS: MONTELUKAST SODIUM 10 MG TABLET PO (09:23)
[2025-03-22 09:24] VITALS: PULSE 56
[2025-03-22] MEDS: AMIODARONE HCL 200 MG TABLET PO (09:24)
[2025-03-22] MEDS: ESCITALOPRAM OXALATE 5 MG TABLET PO (09:24)
[2025-03-22] MEDS: ISOSORBIDE MONONITRATE 30 MG TAB.ER.24H PO (09:25)
[2025-03-22] MEDS: APIXABAN 2.5 MG TABLET PO ×2 (09:25→21:07)
[2025-03-22] MEDS: FLUTICASONE/SALMETEROL 115-21 MCG INHALER 1 PUFF 2 PUFF INHALATION ×2 (09:45→20:49)
[2025-03-22 14:00] VITALS: BP 157/82; PULSE 57; RESP 16; TEMP 36.3; O2SAT 95
--- NOTE | 2025-03-22 14:23 | P.PNNP_ITS ---
Progress Note: A&P Assessment and Plan (1) End stage renal disease: Code(s): N18.6 - End stage renal disease Status: Chronic Assessment and Plan: * HD tomorrow * continue M/W/F outpatient dialysis schedule * follow electrolytes, volume status, and clearance (2) AMS (altered mental status): Qualifiers: Altered mental status type: unspecified Qualified Code(s): R41.82 - Altered mental status, unspecified Code(s): R41.82 - Altered mental status, unspecified Status: Acute Assessment and Plan: * clinical improvement noted if not back to baseline * appears to be doing better at this time * head CT negative * follow mentation (3) UTI (urinary tract infection): Code(s): N39.0 - Urinary tract infection, site not specified Status: Acute Assessment and Plan: * admission UA highly suggestive * follow culture data - negative to date * on antibiotics * despite negative culture, improvement in #2 noted with antibiotic therapy (4) Anemia: Code(s): D64.9 - Anemia, unspecified Status: Chronic Assessment and Plan: * due to ESRD * RADHA/Epogen with HD * follow trend of H/H (5) Hypertension: Qualifiers: Hypertension type: unspecified Qualified Code(s): I10 - Essential (primary) hypertension Code(s): I10 - Essential (primary) hypertension Status: Chronic Assessment and Plan: * reasonable control * resume home BP medications * follow trend of hemodynamics (6) Type 2 diabetes mellitus with hyperglycemia: Qualifiers: Diabetes mellitus billing associate insulin use: with senior care use Qualified Code(s): E11.65 - Type 2 diabetes mellitus with hyperglycemia; 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 L Subjective Date/time seen: 03/22/25 14:23 Interval history: Follow-up for end stage renal disease on hemodialysis. Hypoglycemic this morning likely secondary to diminished oral intake yesterday evening but seems to have resolved at this time; mentation seems about the same; no apparent distress overnight or earlier this morning. Exam 2 Narrative: General: elderly but WD/WN female in NAD Heart: normal S1 and S2; no rub Lungs: clear anteriorly; decreased at bases Abdomen: soft, nontender, nondistended, positive bowel sounds Extremities: no cyanosis or clubbing; trace edema Skin: warm and dry Objective Data Vital Signs Vital Signs: Vital Signs Temp Pulse Resp BP Pulse Ox O2 Del Method 03/22/25 14:00 97.3 F L 57 L 16 157/82 H 95 03/22/25 09:24 56 L 03/22/25 09:23 58 L 03/22/25 09:20 56 L 99 Room Air 03/22/25 04:03 97.9 F 58 L 16 161/74 H 99 03/21/25 20:35 97.9 F 60 16 153/73 H 95 03/21/25 20:14 60 18 Intake/Output Intake/Output: Intake & Output 03/19/25 03/20/25 03/21/25 03/22/25 23:59 23:59 23:59 23:59 Intake Total 1010 2690 1530 1398 Output Total 0 10 Balance 1010 2680 1530 1398 Meds/Results Medications: Active Medications Generic Name Dose Route Start Last Admin Trade Name Freq PRN Reason Stop Dose Admin Acetaminophen 650 mg 03/17/25 20:15 03/22/25 17:37 Acetaminophen 325 Mg Tablet PO 650 mg Q6H PRN Administration Mild Pain (1-3) or Fever Albuterol 2.5 mg 03/16/25 23:13 Albuterol Sulfate Neb 2.5 Mg/3 Ml Inh INHALATION Q4-6H PRN Shortness Of Breath Or Wheezing Amiodarone HCl 200 mg 03/17/25 09:00 03/22/25 09:24 Amiodarone Hcl 200 Mg Tablet PO 200 mg QAM ALINA Administration Amoxicillin/Clavulanate Potassium 1 tablet 03/19/25 09:00 03/22/25 09:22 Amoxicillin/Clavulanate K 500-125 Mg Tab PO 03/23/25 21:01 1 tablet Q12HR ALINA Administration Apixaban 2.5 mg 03/16/25 23:15 03/22/25 09:25 Apixaban 2.5 Mg Tablet PO 2.5 mg Q12HR ALINA Administration Atorvastatin Calcium 20 mg 03/16/25 23:15 03/21/25 20:46 Atorvastatin 20 Mg Tablet PO 20 mg HS ALINA Administration Calcium Acetate 667 mg 03/17/25 08:00 03/22/25 17:38 Calcium Acetate 667 Mg Tablet PO 667 mg TIDWM ALINA Administration Dextrose 12.5 gm 03/16/25 23:19 Dextrose 50% 25 Gm/50 Ml Syringe IV PUSH PRN PRN Hypoglycemia Protocol Escitalopram Oxalate 5 mg 03/17/25 09:00 03/22/25 09:24 Escitalopram Oxalate 5 Mg Tablet PO 5 mg DAILY ALINA Administration Glucagon 1 mg 03/16/25 23:19 Glucagon For Inj 1 Mg Vial IM PRN PRN Hypoglycemia Protocol Glucose 15 gm 03/16/25 23:19 Glucose Oral Gel 15 Gm Of Glucse In 37.5 Gm Tube PO PRN PRN Hypoglycemia Protocol Hydralazine HCl 25 mg 03/16/25 23:20 03/22/25 17:38 Hydralazine Hcl 25 Mg Tablet PO 25 mg TID ALINA Administration Dextrose 1,000 mls @ 100 mls/hr 03/16/25 23:19 Dextrose 5% 1,000 Ml IVPB PRN PRN Hypoglycemia Protocol Albumin Human 50 mls @ 999 mls/hr 03/20/25 06:17 Albutein IVPB 04/19/25 06:16 Q10M PRN HYPOTENSION Insulin Aspart 2 - 5 units 03/17/25 08:00 03/22/25 17:13 Insulin Aspart (*Bkc) 100 Units/Ml SUB-Q Not Given TIDWM ALINA Protocol Insulin Glargine 14 units 03/17/25 18:00 03/22/25 17:38 Insulin Glargine (*Bkc) 100 Units/Ml SUB-Q 14 units QPM ALINA Administration Isosorbide Mononitrate 30 mg 03/17/25 09:00 03/22/25 09:25 Isosorbide Mononitrate 30 Mg Tab.Er.24h PO 30 mg DAILY ALINA Administration Levothyroxine Sodium 200 mcg 03/17/25 06:30 03/22/25 05:59 Levothyroxine Sodium 100 Mcg Tablet PO 200 mcg DAILY@0630 ALINA Administration Lidocaine/Prilocaine 1 each 03/18/25 06:43 Lidocaine/Prilocaine Cream 2.5-2.5% Tube TOPICAL WITH DIALYSIS PRN for dialysis Protocol Lorazepam 0.5 mg 03/16/25 23:13 03/20/25 10:57 Lorazepam (*Crx) 0.5 Mg Tablet PO 0.5 mg BID PRN Administration Anxiety Metoprolol Succinate 50 mg 03/17/25 09:00 03/22/25 09:23 Metoprolol Succinate Ext Rel 50 Mg Tabcr PO 50 mg QAM ALINA Administration Montelukast Sodium 10 mg 03/17/25 09:00 03/22/25 09:23 Montelukast Sodium 10 Mg Tablet PO 10 mg DAILY ALINA Administration Polyethylene Glycol 17 gm 03/20/25 09:00 03/22/25 09:25 Polyethylene Glycol 3350 17 Gm Powd.Pack PO 17 gm QAM ALINA Administration Ropinirole HCl 0.5 mg 03/16/25 23:20 03/22/25 17:38 Ropinirole Hcl 0.5 Mg Tablet PO 0.5 mg BID ALINA Administration Fluticasone/Salmeterol 2 puff 03/17/25 08:00 03/22/25 09:45 Fluticasone/Salmeterol 115-21 Mcg Inhaler 1 Puff INHALATION 2 puff Q12HRT ALINA Administration Senna/Docusate Sodium 1 tab 03/19/25 21:00 03/21/25 20:46 Senna/Docusate Sodium Tablet PO Not Given HS ALINA Trazodone HCl 50 mg 03/16/25 23:20 03/21/25 20:46 Trazodone Hcl 50 Mg Tablet PO 50 mg QHS ALINA Administration Radiology Results: ITS Impressions Head CT 03/16/25 16:58 IMPRESSION: No acute intracranial hemorrhage or extra axial fluid collections. Encephalomalacia changes within the left MCA territory reflective of remote infarct. Chronic white matter microangiopathic changes in the periventricular white matter. All CT scans at this facility are performed using low dose modulation techniques as appropriate to perform exam including the following: automated exposure control; use of iterative reconstruction technique; adjustment of the mA and/or kV according to patient size (this includes techniques or standardized protocols for targeted exams where dose is matched to indication/reason for exam). Labs Labs: Laboratory Tests 03/22/25 05:10 03/22/25 05:10 Calcium 8.2 L Total Bilirubin 1.1 AST 22 ALT 12 Alkaline Phosphatase 110 Total Protein 6.9 Albumin 3.4 L
[2025-03-22] MEDS: ACETAMINOPHEN 325 MG TABLET 650 MG PO (17:37)
[2025-03-22] MEDS: INSULIN GLARGINE (*BKC) 100 UNITS/ML 14 UNITS SUB-Q (17:38)
[2025-03-22] MEDS: ATORVASTATIN 20 MG TABLET PO (21:07)
[2025-03-22] MEDS: SENNA/DOCUSATE SODIUM TABLET 1 TAB PO (21:07)
[2025-03-22 21:36] VITALS: BP 150/56; PULSE 54; RESP 20; TEMP 36.4; O2SAT 96
[2025-03-23] VITALS (26 sets, daily range): BP systolic 134–191; BP diastolic 37–105; PULSE 51–71; RESP 16–20; TEMP 36.3–37; O2SAT 95–100
[2025-03-23] MEDS: LEVOTHYROXINE SODIUM 100 MCG TABLET 200 MCG PO (05:54)
[2025-03-23 06:05] LABS: Hematocrit 31.2 % (37.0-47.0); Hemoglobin 9.2 g/dL (12.0-15.0); Immature Granulocyte Percent A 0.2 % (0-0.5); Lymphocytes Absolute Auto 1.04 K/mm3 (0.9-3.2); Mean Corpuscular HGB Conc 29.5 g/dl (32-36); Mean Corpuscular Hemoglobin 27.1 pg (26-34); Mean Corpuscular Volume 91.8 fl (80-100); Nucleated Red Blood Cells Absolute Auto 0.000 K/mm3 (0.0-0.012); Nucleated Red Blood Cells Perc 0.0 % (0.0-0.2); Platelet Count Result 209 k/mm3 (150-375); Red Blood Count 3.40 M/mm3 (4.2-5.4); White Blood Count 5.6 K/mm3 (4.5-10.0)
[2025-03-23 06:27] LABS: Albumin Level 3.4 g/dL (3.5-5.1); Anion Gap 9 mmol/L (4-12); Blood Urea Nitrogen 36 mg/dL (7-17); Calcium 8.3 mg/dL (8.4-10.2); Carbon Dioxide 27 mmol/L (22-30); Chloride 100 mmol/L (98-107); Estimated CRCL calculation 8 ml/min; Estimated Glomerular Filt Rate 6; Glucose 124 mg/dL (65-110); Potassium 4.1 mmol/L (3.4-5.0); Sodium 136 mmol/L (137-145)
[2025-03-23 06:30] LABS: Anisocytosis 1+; Burr Cells 1+; Hypochromasia 1+; Polychromasia Occasional; Schistocytes None Seen; Target Cells Occasional
[2025-03-23] MEDS: FLUTICASONE/SALMETEROL 115-21 MCG INHALER 1 PUFF 2 PUFF INHALATION ×2 (08:23→19:37)
--- NOTE | 2025-03-23 08:51 | PM.IMPN ---
Progress Note: A&P Assessment and Plan (1) AMS (altered mental status): Qualifiers: Altered mental status type: unspecified Qualified Code(s): R41.82 - Altered mental status, unspecified Code(s): R41.82 - Altered mental status, unspecified Status: Acute Assessment and Plan: Per patients the patient seemed to have difficulty figuring out how to pull up her pants then difficulty understanding how to get her food to her mouth. She was sitting on a stool at around 15:00 and it slid out from under. She struck the right side her head on the stool. Chronically on Eliquis for stroke prophylaxis. The patient does have baseline right-sided deficits and expressive aphasia that is unchanged from baseline. Head CT: No acute intracranial hemorrhage or extra axial fluid collections. Encephalomalacia changes within the left MCA territory reflective of remote infarct. Chronic white matter microangiopathic changes in the periventricular white matter. UA concerning for infection, see plan below Lungs and abdominal exam benign. Chronic skin changes no concerning for acute infection. Patient remains at her baseline mental status with expressive aphasia. (2) Acute UTI: Code(s): N39.0 - Urinary tract infection, site not specified Status: Acute Assessment and Plan: - UA concerning for infection - UC obtained on 03/17: negative - previous micro reviewed 01/2025: ecoli pansensitive 08/2024: proteus mirabilis with resistance to cipro, macrobid, bactrim and cefazolin - started on Rocephin on 03/17, discontinued on 03/18. Given patients increased confusion concerning for metabolic encephalopathy as no noted abnormalities on imaging and improvement with antibiotics will continue to treat for a UTI since patient cannot disclose if symptomatic. Started on Augmentin on 03/19, course completed on 03/23. (3) Hypertension: Qualifiers: Hypertension type: unspecified Qualified Code(s): I10 - Essential (primary) hypertension Code(s): I10 - Essential (primary) hypertension Status: Chronic Assessment and Plan: Chronic, continue home medications - metoprolol 50 mg daily - imdur 30 mg daily - hydralazine 25 mg TID - blood pressures reviewed and stable, continue to monitor Blood pressures are elevated, however per RN patient had not received antihypertensives due to being at dialysis. Patient to receive her home medications and will continue to closely monitor. (4) ESRD on hemodialysis: Code(s): N18.6 - End stage renal disease; Z99.2 - Dependence on renal dialysis Status: Acute Assessment and Plan: Chronic Hemodialysis Sunday Nephrology consulted Received dialysis today. (5) Diabetes: Code(s): E11.9 - Type 2 diabetes mellitus without complications Status: Acute Assessment and Plan: - hypoglycemia protocol - POC blood glucose ACHS - home medication - lantus 18 units and SSI - correct regimen ordered - 14 units lantus (20% decrease from home dose) and low-dose sliding scale insulin - A1C 6.5 Glucose levels reviewed, remains stable. Continue to monitor. (6) Chronic wound: Code(s): T14.8XXA - Other injury of unspecified body region, initial encounter Status: Acute Assessment and Plan: Patient has a chronic wound to the posterior ankle/achilles region that does not appear infection. No warmth, exudate, or erythema present. Lower extremity CTA 03/08: Severe atherosclerotic changes detailed above with critical stenosis of the junction of the superficial femoral and femoral arteries During prior admission [facility] vascular was consulted and patient was to follow up with [facility] in the outpatient setting Per RN and patients daughter she had increased pain/difficulty when working with PT. Will obtain an XR to assess for any acute injuries. 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 Patient is pleasant lying comfortably in bed receiving dialysis. She had no acute events overnight. ROS unobtainable given expressive aphasia. Received call from RN that patient was having increased pain/difficulty with PT. Will order an XR to assess for any injuries as patient did have a slight fall prior to admission. Patients daughter was with RN at that time and stated she had no further questions or concerns. Review of Systems Review of Systems: Limited due to chronic expressive aphasia. ROS unobtainable: Yes unobtainable due to mental status (chronic expressive aphasia ) Exam Narrative: AF HR 68 RR 18 Spo2 98 BP 168/67 General:female in no acute respiratory distress who is nontoxic appearing, lying semirecumbent in bed receiving dialysis HEENT: Normocephalic. Atraumatic. Extraocular movement intact. Sclera clear and anicteric. No facial asymmetry. Chest: Lungs are clear to auscultation bilaterally. No wheezes or crackles. CV: Heart was regular rate and rhythm. Abd: Abdomen was soft. Nontender. Nondistended. Positive bowel sounds. Ext: No clubbing, cyanosis or edema. Chronic wound to the right Achilles region without redness, warmth, or drainage. Neuro: Patient is alert. Chronic expressive aphasia. Const: General: comfortable Other: Chronically debilitated, obese, no acute distress Skin: Other: Chronic ulceration to the posterior left calcaneus, no increased warmth or drainage, otherwise generalized pallor noted Neuro: Other: The patient is alert arouses easily to verbal stimuli will occasionally say I ordered 2 that is understandable but otherwise speech is gibberish with no distinguishable words, she has chronic right facial droop and right upper extremity and right lower extremity weakness due to prior CVA Extrem: Other: 3+ testing and regulating technician strength on the right 2+ strength on plantar flexion on the right, 5/5 testing and regulating technician strength on the left and 4/5 plantar and dorsiflexion melena Psych: Other: Pleasant and cooperative otherwise unable to truly assess patient's status Objective Data Vital Signs Vital Signs: Vital Signs - 24 hr 03/22/25 09:20 03/22/25 09:23 03/22/25 09:24 Temperature Pulse Rate 56 L 58 L 56 L Respiratory Rate Blood Pressure Pulse Oximetry 99 Oxygen Delivery Room Air 03/22/25 14:00 03/22/25 21:36 03/23/25 06:00 Temperature 97.3 F L 97.5 F L 97.9 F Pulse Rate 57 L 54 L 51 L Respiratory Rate 16 20 18 Blood Pressure 157/82 H 150/56 H 159/84 H Pulse Oximetry 95 96 100 Oxygen Delivery 03/23/25 08:27 Temperature Pulse Rate Respiratory Rate Blood Pressure Pulse Oximetry 99 Oxygen Delivery Room Air Intake/Output Intake/Output: Intake & Output 03/20/25 03/21/25 03/22/25 03/23/25 23:59 23:59 23:59 23:59 Intake Total 2690 1530 1618 0 Output Total 10 Balance 2680 1530 1618 0 Meds/Results Medications: Active Medications Generic Name Dose Route Start Last Admin Trade Name Freq PRN Reason Stop Dose Admin Acetaminophen 650 mg 03/17/25 20:15 03/22/25 17:37 Acetaminophen 325 Mg Tablet PO 650 mg Q6H PRN Administration Mild Pain (1-3) or Fever Albuterol 2.5 mg 03/16/25 23:13 Albuterol Sulfate Neb 2.5 Mg/3 Ml Inh INHALATION Q4-6H PRN Shortness Of Breath Or Wheezing Amiodarone HCl 200 mg 03/17/25 09:00 03/22/25 09:24 Amiodarone Hcl 200 Mg Tablet PO 200 mg QAM ALINA Administration Amoxicillin/Clavulanate Potassium 1 tablet 03/19/25 09:00 03/22/25 21:07 Amoxicillin/Clavulanate K 500-125 Mg Tab PO 03/23/25 21:01 1 tablet Q12HR ALINA Administration Apixaban 2.5 mg 03/16/25 23:15 03/22/25 21:07 Apixaban 2.5 Mg Tablet PO 2.5 mg Q12HR ALINA Administration Atorvastatin Calcium 20 mg 03/16/25 23:15 03/22/25 21:07 Atorvastatin 20 Mg Tablet PO 20 mg HS ALINA Administration Calcium Acetate 667 mg 03/17/25 08:00 03/22/25 17:38 Calcium Acetate 667 Mg Tablet PO 667 mg TIDWM ALINA Administration Dextrose 12.5 gm 03/16/25 23:19 Dextrose 50% 25 Gm/50 Ml Syringe IV PUSH PRN PRN Hypoglycemia Protocol Epoetin Jorge Alberto-epbx 10,000 units 03/23/25 17:49 Epoetin Jorge Alberto-Epbx 10,000 Units/Ml Vial IV PUSH 03/23/25 17:50 ONCE ONE Escitalopram Oxalate 5 mg 03/17/25 09:00 03/22/25 09:24 Escitalopram Oxalate 5 Mg Tablet PO 5 mg DAILY ALINA Administration Glucagon 1 mg 03/16/25 23:19 Glucagon For Inj 1 Mg Vial IM PRN PRN Hypoglycemia Protocol Glucose 15 gm 03/16/25 23:19 Glucose Oral Gel 15 Gm Of Glucse In 37.5 Gm Tube PO PRN PRN Hypoglycemia Protocol Hydralazine HCl 25 mg 03/16/25 23:20 03/22/25 17:38 Hydralazine Hcl 25 Mg Tablet PO 25 mg TID ALINA Administration Dextrose 1,000 mls @ 100 mls/hr 03/16/25 23:19 Dextrose 5% 1,000 Ml IVPB PRN PRN Hypoglycemia Protocol Albumin Human 50 mls @ 999 mls/hr 03/20/25 06:17 Albutein IVPB 04/19/25 06:16 Q10M PRN HYPOTENSION Insulin Aspart 2 - 5 units 03/17/25 08:00 03/23/25 08:26 Insulin Aspart (*Bkc) 100 Units/Ml SUB-Q Not Given TIDWM ALINA Protocol Insulin Glargine 14 units 03/17/25 18:00 03/22/25 17:38 Insulin Glargine (*Bkc) 100 Units/Ml SUB-Q 14 units QPM ALINA Administration Isosorbide Mononitrate 30 mg 03/17/25 09:00 03/22/25 09:25 Isosorbide Mononitrate 30 Mg Tab.Er.24h PO 30 mg DAILY ALINA Administration Levothyroxine Sodium 200 mcg 03/17/25 06:30 03/23/25 05:54 Levothyroxine Sodium 100 Mcg Tablet PO 200 mcg DAILY@0630 ALINA Administration Lidocaine/Prilocaine 1 each 03/18/25 06:43 Lidocaine/Prilocaine Cream 2.5-2.5% Tube TOPICAL WITH DIALYSIS PRN for dialysis Protocol Lorazepam 0.5 mg 03/16/25 23:13 03/20/25 10:57 Lorazepam (*Crx) 0.5 Mg Tablet PO 0.5 mg BID PRN Administration Anxiety Metoprolol Succinate 50 mg 03/17/25 09:00 03/22/25 09:23 Metoprolol Succinate Ext Rel 50 Mg Tabcr PO 50 mg QAM ALINA Administration Montelukast Sodium 10 mg 03/17/25 09:00 03/22/25 09:23 Montelukast Sodium 10 Mg Tablet PO 10 mg DAILY ALINA Administration Polyethylene Glycol 17 gm 03/20/25 09:00 03/22/25 09:25 Polyethylene Glycol 3350 17 Gm Powd.Pack PO 17 gm QAM ALINA Administration Ropinirole HCl 0.5 mg 03/16/25 23:20 03/22/25 17:38 Ropinirole Hcl 0.5 Mg Tablet PO 0.5 mg BID ALINA Administration Fluticasone/Salmeterol 2 puff 03/17/25 08:00 03/23/25 08:23 Fluticasone/Salmeterol 115-21 Mcg Inhaler 1 Puff INHALATION 2 puff Q12HRT ALINA Administration Senna/Docusate Sodium 1 tab 03/19/25 21:00 03/22/25 21:07 Senna/Docusate Sodium Tablet PO 1 tab HS ALINA Administration Trazodone HCl 50 mg 03/16/25 23:20 03/22/25 21:07 Trazodone Hcl 50 Mg Tablet PO 50 mg QHS ALINA Administration Radiology Results: ITS Impressions Head CT 03/16/25 16:58 IMPRESSION: No acute intracranial hemorrhage or extra axial fluid collections. Encephalomalacia changes within the left MCA territory reflective of remote infarct. Chronic white matter microangiopathic changes in the periventricular white matter. All CT scans at this facility are performed using low dose modulation techniques as appropriate to perform exam including the following: automated exposure control; use of iterative reconstruction technique; adjustment of the mA and/or kV according to patient size (this includes techniques or standardized protocols for targeted exams where dose is matched to indication/reason for exam). Labs Labs: Laboratory Results - last 24 hr 03/22/25 03/22/25 03/22/25 08:27 11:43 16:45 WBC RBC Hgb Hct MCV MCH MCHC RDW Plt Count MPV Immature Gran % (Auto) Neut % (Auto) Lymph % (Auto) Rice % (Auto) Eos % (Auto) Baso % (Auto) Lymph # (Auto) Rice # (Auto) Eos # (Auto) Baso # (Auto) Abs Immat Gran (auto) Absolute Neuts (auto) Absolute Nucleated RBC Band Neutrophils % Nucleated RBC % Platelet Estimate Polychromasia Hypochromasia Anisocytosis Target Cells Junior Cells Schistocytes Sodium Potassium Chloride Carbon Dioxide Anion Gap BUN Creatinine Estim Creat Clear Calc Estimated GFR Glucose POC Capillary Glucose 79 108 H 125 H Calcium Phosphorus Albumin 03/22/25 03/23/25 03/23/25 20:22 05:56 08:15 WBC 5.6 RBC 3.40 L Hgb 9.2 L Hct 31.2 L MCV 91.8 MCH 27.1 MCHC 29.5 L RDW 19.6 H Plt Count 209 MPV 9.8 Immature Gran % (Auto) 0.2 Neut % (Auto) 58.7 Lymph % (Auto) 18.5 Rice % (Auto) 13.5 H Eos % (Auto) 7.5 H Baso % (Auto) 1.6 H Lymph # (Auto) 1.04 Rice # (Auto) 0.8 H Eos # (Auto) 0.4 H Baso # (Auto) 0.1 Abs Immat Gran (auto) 0.01 Absolute Neuts (auto) 3.3 Absolute Nucleated RBC 0.000 Band Neutrophils % Not Reportable Nucleated RBC % 0.0 Platelet Estimate Adequate Polychromasia Occasional Hypochromasia 1+ Anisocytosis 1+ Target Cells Occasional Junior Cells 1+ Schistocytes None seen Sodium 136 L Potassium 4.1 Chloride 100 Carbon Dioxide 27 Anion Gap 9 BUN 36 H D Creatinine 6.39 H Estim Creat Clear Calc 8 Estimated GFR 6 L Glucose 124 H POC Capillary Glucose 214 H 101 Calcium 8.3 L Phosphorus 3.9 Albumin 3.4 L Quality VTE Prophylaxis VTE prophylaxis: pharmacologic ordered
--- NOTE | 2025-03-23 10:40 | P.PNNP_ITS ---
Progress Note: A&P Assessment and Plan (1) End stage renal disease: Code(s): N18.6 - End stage renal disease Status: Chronic Assessment and Plan: * HD today * continue M/W/F outpatient dialysis schedule * follow electrolytes, volume status, and clearance (2) AMS (altered mental status): Qualifiers: Altered mental status type: unspecified Qualified Code(s): R41.82 - Altered mental status, unspecified Code(s): R41.82 - Altered mental status, unspecified Status: Acute Assessment and Plan: * clinical improvement noted if not back to baseline * appears to be doing better at this time * head CT negative * follow mentation (3) UTI (urinary tract infection): Code(s): N39.0 - Urinary tract infection, site not specified Status: Acute Assessment and Plan: * admission UA highly suggestive * follow culture data - negative to date * on antibiotics * despite negative culture, improvement in #2 noted with antibiotic therapy (4) Anemia: Code(s): D64.9 - Anemia, unspecified Status: Chronic Assessment and Plan: * due to ESRD * RADHA/Epogen with HD * follow trend of H/H (5) Hypertension: Qualifiers: Hypertension type: unspecified Qualified Code(s): I10 - Essential (primary) hypertension Code(s): I10 - Essential (primary) hypertension Status: Chronic Assessment and Plan: * reasonable control * resume home BP medications * follow trend of hemodynamics (6) Type 2 diabetes mellitus with hyperglycemia: Qualifiers: Diabetes mellitus long distance operator insulin use: with long distance operator use Qualified Code(s): E11.65 - Type 2 diabetes mellitus with hyperglycemia; Z79.4 - long term care pharmacist (current) use of insulin Code(s): E11.65 - Type 2 diabetes mellitus with hyperglycemia Status: Chronic Assessment and Plan: * follow accu-cheks * glycemic control per hospitalist Will continue to follow. L Subjective Date/time seen: 03/23/25 10:40 Interval history: Follow-up for end stage renal disease on hemodialysis. Tolerating dialysis treatment at the time of my visit (seen on HD at 10:30am); expressive aphasia limits assessment of patient but she does not appear to be in any distress; no other issues/events overnight or earlier this morning. Exam 2 Narrative: General: elderly but WD/WN female in NAD Heart: normal S1 and S2; no rub Lungs: clear anteriorly; decreased at bases Abdomen: soft, nontender, nondistended, positive bowel sounds Extremities: no cyanosis or clubbing; trace edema Skin: warm and intact Objective Data Vital Signs Vital Signs: Vital Signs Temp Pulse Resp BP Pulse Ox O2 Del Method 03/23/25 10:30 63 139/88 03/23/25 10:15 56 L 162/64 H 03/23/25 10:13 65 157/80 H 03/23/25 10:04 98.2 F 53 L 18 134/61 99 03/23/25 08:27 99 Room Air 03/23/25 06:00 97.9 F 51 L 18 159/84 H 100 03/22/25 21:36 97.5 F L 54 L 20 150/56 H 96 03/22/25 14:00 97.3 F L 57 L 16 157/82 H 95 Intake/Output Intake/Output: Intake & Output 03/20/25 03/21/25 03/22/25 03/23/25 23:59 23:59 23:59 23:59 Intake Total 2690 1530 1618 240 Output Total 10 Balance 2680 1530 1618 240 Meds/Results Medications: Active Medications Generic Name Dose Route Start Last Admin Trade Name Freq PRN Reason Stop Dose Admin Acetaminophen 650 mg 03/17/25 20:15 03/22/25 17:37 Acetaminophen 325 Mg Tablet PO 650 mg Q6H PRN Administration Mild Pain (1-3) or Fever Albuterol 2.5 mg 03/16/25 23:13 Albuterol Sulfate Neb 2.5 Mg/3 Ml Inh INHALATION Q4-6H PRN Shortness Of Breath Or Wheezing Amiodarone HCl 200 mg 03/17/25 09:00 03/22/25 09:24 Amiodarone Hcl 200 Mg Tablet PO 200 mg QAM ALINA Administration Amoxicillin/Clavulanate Potassium 1 tablet 03/19/25 09:00 03/22/25 21:07 Amoxicillin/Clavulanate K 500-125 Mg Tab PO 03/23/25 21:01 1 tablet Q12HR ALINA Administration Apixaban 2.5 mg 03/16/25 23:15 03/22/25 21:07 Apixaban 2.5 Mg Tablet PO 2.5 mg Q12HR ALINA Administration Atorvastatin Calcium 20 mg 03/16/25 23:15 03/22/25 21:07 Atorvastatin 20 Mg Tablet PO 20 mg HS ALINA Administration Calcium Acetate 667 mg 03/17/25 08:00 03/22/25 17:38 Calcium Acetate 667 Mg Tablet PO 667 mg TIDWM ALINA Administration Dextrose 12.5 gm 03/16/25 23:19 Dextrose 50% 25 Gm/50 Ml Syringe IV PUSH PRN PRN Hypoglycemia Protocol Epoetin Jorge Alberto-epbx 10,000 units 03/23/25 17:49 Epoetin Jorge Alberto-Epbx 10,000 Units/Ml Vial IV PUSH 03/23/25 17:50 ONCE ONE Escitalopram Oxalate 5 mg 03/17/25 09:00 03/22/25 09:24 Escitalopram Oxalate 5 Mg Tablet PO 5 mg DAILY ALINA Administration Glucagon 1 mg 03/16/25 23:19 Glucagon For Inj 1 Mg Vial IM PRN PRN Hypoglycemia Protocol Glucose 15 gm 03/16/25 23:19 Glucose Oral Gel 15 Gm Of Glucse In 37.5 Gm Tube PO PRN PRN Hypoglycemia Protocol Hydralazine HCl 25 mg 03/16/25 23:20 03/22/25 17:38 Hydralazine Hcl 25 Mg Tablet PO 25 mg TID ALINA Administration Dextrose 1,000 mls @ 100 mls/hr 03/16/25 23:19 Dextrose 5% 1,000 Ml IVPB PRN PRN Hypoglycemia Protocol Albumin Human 50 mls @ 999 mls/hr 03/20/25 06:17 Albutein IVPB 04/19/25 06:16 Q10M PRN HYPOTENSION Insulin Aspart 2 - 5 units 03/17/25 08:00 03/23/25 08:26 Insulin Aspart (*Bkc) 100 Units/Ml SUB-Q Not Given TIDWM [facility] Protocol Insulin Glargine 14 units 03/17/25 18:00 03/22/25 17:38 Insulin Glargine (*Bkc) 100 Units/Ml SUB-Q 14 units QPM ALINA Administration Isosorbide Mononitrate 30 mg 03/17/25 09:00 03/22/25 09:25 Isosorbide Mononitrate 30 Mg Tab.Er.24h PO 30 mg DAILY ALINA Administration Levothyroxine Sodium 200 mcg 03/17/25 06:30 03/23/25 05:54 Levothyroxine Sodium 100 Mcg Tablet PO 200 mcg DAILY@0630 ALINA Administration Lidocaine/Prilocaine 1 each 03/18/25 06:43 Lidocaine/Prilocaine Cream 2.5-2.5% Tube TOPICAL WITH DIALYSIS PRN for dialysis Protocol Lorazepam 0.5 mg 03/16/25 23:13 03/20/25 10:57 Lorazepam (*Crx) 0.5 Mg Tablet PO 0.5 mg BID PRN Administration Anxiety Metoprolol Succinate 50 mg 03/17/25 09:00 03/22/25 09:23 Metoprolol Succinate Ext Rel 50 Mg Tabcr PO 50 mg QAM ALINA Administration Montelukast Sodium 10 mg 03/17/25 09:00 03/22/25 09:23 Montelukast Sodium 10 Mg Tablet PO 10 mg DAILY ALINA Administration Polyethylene Glycol 17 gm 03/20/25 09:00 03/22/25 09:25 Polyethylene Glycol 3350 17 Gm Powd.Pack PO 17 gm QAM ALINA Administration Ropinirole HCl 0.5 mg 03/16/25 23:20 03/22/25 17:38 Ropinirole Hcl 0.5 Mg Tablet PO 0.5 mg BID ALINA Administration Fluticasone/Salmeterol 2 puff 03/17/25 08:00 03/23/25 08:23 Fluticasone/Salmeterol 115-21 Mcg Inhaler 1 Puff INHALATION 2 puff Q12HRT ALINA Administration Senna/Docusate Sodium 1 tab 03/19/25 21:00 03/22/25 21:07 Senna/Docusate Sodium Tablet PO 1 tab HS ALINA Administration Trazodone HCl 50 mg 03/16/25 23:20 03/22/25 21:07 Trazodone Hcl 50 Mg Tablet PO 50 mg QHS ALINA Administration Radiology Results: ITS Impressions Head CT 03/16/25 16:58 IMPRESSION: No acute intracranial hemorrhage or extra axial fluid collections. Encephalomalacia changes within the left MCA territory reflective of remote infarct. Chronic white matter microangiopathic changes in the periventricular white matter. All CT scans at this facility are performed using low dose modulation techniques as appropriate to perform exam including the following: automated exposure control; use of iterative reconstruction technique; adjustment of the mA and/or kV according to patient size (this includes techniques or standardized protocols for targeted exams where dose is matched to indication/reason for exam). Labs Labs: Laboratory Tests 03/23/25 05:56 03/23/25 05:56 Calcium 8.3 L Phosphorus 3.9 Albumin 3.4 L
[2025-03-23] MEDS: EPOETIN ALFA-EPBX 10,000 UNITS/ML VIAL 10000 UNITS IV PUSH (13:45)
[2025-03-23] MEDS: ACETAMINOPHEN 325 MG TABLET 650 MG PO (15:31)
[2025-03-23] MEDS: CALCIUM ACETATE 667 MG TABLET PO (17:02)
[2025-03-23] MEDS: INSULIN GLARGINE (*BKC) 100 UNITS/ML 14 UNITS SUB-Q (17:09)
[2025-03-23] MEDS: APIXABAN 2.5 MG TABLET PO (21:27)
[2025-03-23] MEDS: ATORVASTATIN 20 MG TABLET PO (21:27)
[2025-03-23] MEDS: SENNA/DOCUSATE SODIUM TABLET 1 TAB PO (21:27)
[2025-03-24] VITALS (9 sets, daily range): BP systolic 100–180; BP diastolic 61–82; PULSE 53–82; RESP 18–20; TEMP 36.1–36.6; O2SAT 95–98
[2025-03-24] MEDS: LEVOTHYROXINE SODIUM 100 MCG TABLET 200 MCG PO (05:48)
[2025-03-24] MEDS: GLUCAGON FOR INJ 1 MG VIAL IM (05:58)
--- NOTE | 2025-03-24 08:39 | PM.IMPN ---
Progress Note: A&P Assessment and Plan (1) AMS (altered mental status): Qualifiers: Altered mental status type: unspecified Qualified Code(s): R41.82 - Altered mental status, unspecified Code(s): R41.82 - Altered mental status, unspecified Status: Acute Assessment and Plan: Per patients the patient seemed to have difficulty figuring out how to pull up her pants then difficulty understanding how to get her food to her mouth. She was sitting on a stool at around 15:00 and it slid out from under. She struck the right side her head on the stool. Chronically on Eliquis for stroke prophylaxis. The patient does have baseline right-sided deficits and expressive aphasia that is unchanged from baseline. Head CT: No acute intracranial hemorrhage or extra axial fluid collections. Encephalomalacia changes within the left MCA territory reflective of remote infarct. Chronic white matter microangiopathic changes in the periventricular white matter. UA concerning for infection, see plan below Lungs and abdominal exam benign. Chronic skin changes no concerning for acute infection. Patient remains at her baseline mental status with expressive aphasia. (2) Acute UTI: Code(s): N39.0 - Urinary tract infection, site not specified Status: Acute Assessment and Plan: - UA concerning for infection - UC obtained on 03/17: negative - previous micro reviewed 01/2025: ecoli pansensitive 08/2024: proteus mirabilis with resistance to cipro, macrobid, bactrim and cefazolin - started on Rocephin on 03/17, discontinued on 03/18. Given patients increased confusion concerning for metabolic encephalopathy as no noted abnormalities on imaging and improvement with antibiotics will continue to treat for a UTI since patient cannot disclose if symptomatic. Started on Augmentin on 03/19, course completed on 03/23. (3) Hypertension: Qualifiers: Hypertension type: unspecified Qualified Code(s): I10 - Essential (primary) hypertension Code(s): I10 - Essential (primary) hypertension Status: Chronic Assessment and Plan: Chronic, continue home medications - metoprolol 50 mg daily - imdur 30 mg daily - hydralazine 25 mg TID (4) ESRD on hemodialysis: Code(s): N18.6 - End stage renal disease; Z99.2 - Dependence on renal dialysis Status: Acute Assessment and Plan: Chronic Hemodialysis Sunday Nephrology consulted Received dialysis today. (5) Diabetes: Code(s): E11.9 - Type 2 diabetes mellitus without complications Status: Acute Assessment and Plan: - hypoglycemia protocol - POC blood glucose ACHS - home medication - lantus 18 units and SSI - correct regimen ordered - 14 units lantus (20% decrease from home dose) and low-dose sliding scale insulin - A1C 6.5 Glucose levels reviewed, remains stable. Continue to monitor. (6) Chronic wound: Code(s): T14.8XXA - Other injury of unspecified body region, initial encounter Status: Acute Assessment and Plan: Patient has a chronic wound to the posterior ankle/achilles region that does not appear infection. No warmth, exudate, or erythema present. Lower extremity CTA 03/08: Severe atherosclerotic changes detailed above with critical stenosis of the junction of the superficial femoral and femoral arteries During prior admission [facility] vascular was consulted and patient was to follow up with [facility] in the outpatient setting Per RN and patients daughter she had increased pain/difficulty when working with PT. Foot XR showed no significant change in ununited fractures at the heads of the second and third proximal phalanges across the neck of the fourth proximal phalanx, mild to moderate polyarticular osteoarthritis in the right fore and midfoot, and chronic juxta articular erosion at the medial head of the first metatarsal with classic location and appearance for gout. Lucencies the base of the fourth and fifth metatarsal could represent additional erosions or osteoarthritis related degenerative subarticular cystlike changes. 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 Review of Systems Review of Systems: Limited due to chronic expressive aphasia. ROS unobtainable: Yes unobtainable due to mental status (chronic expressive aphasia ) Exam Narrative: AF HR General:female in no acute respiratory distress who is nontoxic appearing, lying semirecumbent in bed receiving dialysis HEENT: Normocephalic. Atraumatic. Extraocular movement intact. Sclera clear and anicteric. No facial asymmetry. Chest: Lungs are clear to auscultation bilaterally. No wheezes or crackles. CV: Heart was regular rate and rhythm. Abd: Abdomen was soft. Nontender. Nondistended. Positive bowel sounds. Ext: No clubbing, cyanosis or edema. Chronic wound to the right Achilles region without redness, warmth, or drainage. Neuro: Patient is alert. Chronic expressive aphasia. 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 2+ strength on plantar flexion on the right, 5/5 auto body builder apprentice strength on the left and 4/5 plantar and dorsiflexion melena Psych: Other: Pleasant and cooperative otherwise unable to truly assess patient's status Objective Data Vital Signs Vital Signs: Vital Signs - 24 hr 03/23/25 10:04 03/23/25 10:13 03/23/25 10:15 Temperature 98.2 F Pulse Rate 53 L 65 56 L Respiratory Rate 18 Blood Pressure 134/61 157/80 H 162/64 H Pulse Oximetry 99 Oxygen Delivery Fraction of Inspired Oxygen 03/23/25 10:30 03/23/25 10:45 03/23/25 11:00 Temperature Pulse Rate 63 57 L 60 Respiratory Rate Blood Pressure 139/88 150/51 H 162/69 H Pulse Oximetry Oxygen Delivery Fraction of Inspired Oxygen 03/23/25 11:15 03/23/25 11:30 03/23/25 11:45 Temperature Pulse Rate 57 L 57 L 57 L Respiratory Rate Blood Pressure 168/48 H 168/58 H 151/45 H Pulse Oximetry Oxygen Delivery Fraction of Inspired Oxygen 03/23/25 12:00 03/23/25 12:15 03/23/25 12:30 Temperature Pulse Rate 59 L 54 L 71 Respiratory Rate Blood Pressure 150/37 H 153/45 H 135/105 H Pulse Oximetry Oxygen Delivery Fraction of Inspired Oxygen 03/23/25 12:45 03/23/25 13:00 03/23/25 13:15 Temperature Pulse Rate 59 L 58 L 57 L Respiratory Rate Blood Pressure 163/66 H 152/53 H 179/59 H Pulse Oximetry Oxygen Delivery Fraction of Inspired Oxygen 03/23/25 13:30 03/23/25 13:47 03/23/25 14:15 Temperature 98.3 F Pulse Rate 58 L 58 L 68 Respiratory Rate 18 Blood Pressure 162/54 H 158/62 H 168/67 H Pulse Oximetry 98 Oxygen Delivery Fraction of Inspired Oxygen 03/23/25 16:31 03/23/25 18:31 03/23/25 19:38 Temperature 98.3 F Pulse Rate 61 54 L Respiratory Rate 18 20 Blood Pressure 191/68 H 145/65 H Pulse Oximetry 97 Oxygen Delivery Fraction of Inspired Oxygen 03/23/25 19:40 03/23/25 20:23 03/24/25 06:00 Temperature 97.4 F L 97.8 F Pulse Rate 55 L 61 56 L Respiratory Rate 20 16 18 Blood Pressure 140/63 180/64 H Pulse Oximetry 95 97 98 Oxygen Delivery Room Air Fraction of Inspired Oxygen 21 Intake/Output Intake/Output: Intake & Output 03/21/25 03/22/25 03/23/25 03/24/25 23:59 23:59 23:59 23:59 Intake Total 1530 1618 680 100 Output Total 1999 Balance 1530 1618 -1320 100 Meds/Results Medications: Active Medications Generic Name Dose Route Start Last Admin Trade Name Freq PRN Reason Stop Dose Admin Acetaminophen 650 mg 03/17/25 20:15 03/23/25 15:31 Acetaminophen 325 Mg Tablet PO 650 mg Q6H PRN Administration Mild Pain (1-3) or Fever Albuterol 2.5 mg 03/16/25 23:13 Albuterol Sulfate Neb 2.5 Mg/3 Ml Inh INHALATION Q4-6H PRN Shortness Of Breath Or Wheezing Amiodarone HCl 200 mg 03/17/25 09:00 03/23/25 15:45 Amiodarone Hcl 200 Mg Tablet PO Not Given QAM ALINA Apixaban 2.5 mg 03/16/25 23:15 03/23/25 21:27 Apixaban 2.5 Mg Tablet PO 2.5 mg Q12HR ALINA Administration Atorvastatin Calcium 20 mg 03/16/25 23:15 03/23/25 21:27 Atorvastatin 20 Mg Tablet PO 20 mg HS ALINA Administration Calcium Acetate 667 mg 03/17/25 08:00 03/23/25 17:02 Calcium Acetate 667 Mg Tablet PO 667 mg TIDWM ALINA Administration Dextrose 12.5 gm 03/16/25 23:19 Dextrose 50% 25 Gm/50 Ml Syringe IV PUSH PRN PRN Hypoglycemia Protocol Escitalopram Oxalate 5 mg 03/17/25 09:00 03/23/25 15:50 Escitalopram Oxalate 5 Mg Tablet PO Not Given DAILY ALINA Glucagon 1 mg 03/16/25 23:19 03/24/25 05:58 Glucagon For Inj 1 Mg Vial IM 1 mg PRN PRN Administration Hypoglycemia Protocol Glucose 15 gm 03/16/25 23:19 Glucose Oral Gel 15 Gm Of Glucse In 37.5 Gm Tube PO PRN PRN Hypoglycemia Protocol Hydralazine HCl 25 mg 03/16/25 23:20 03/23/25 17:02 Hydralazine Hcl 25 Mg Tablet PO 25 mg TID ALINA Administration Dextrose 1,000 mls @ 100 mls/hr 03/16/25 23:19 Dextrose 5% 1,000 Ml IVPB PRN PRN Hypoglycemia Protocol Albumin Human 50 mls @ 999 mls/hr 03/20/25 06:17 Albutein IVPB 04/19/25 06:16 Q10M PRN HYPOTENSION Insulin Aspart 2 - 5 units 03/17/25 08:00 03/23/25 17:03 Insulin Aspart (*Bkc) 100 Units/Ml SUB-Q Not Given TIDWM ALINA Protocol Insulin Glargine 14 units 03/17/25 18:00 03/23/25 17:09 Insulin Glargine (*Bkc) 100 Units/Ml SUB-Q 14 units QPM ALINA Administration Isosorbide Mononitrate 30 mg 03/17/25 09:00 03/23/25 15:51 Isosorbide Mononitrate 30 Mg Tab.Er.24h PO Not Given DAILY ALINA Levothyroxine Sodium 200 mcg 03/17/25 06:30 03/24/25 05:48 Levothyroxine Sodium 100 Mcg Tablet PO 200 mcg DAILY@0630 ALINA Administration Lidocaine/Prilocaine 1 each 03/18/25 06:43 Lidocaine/Prilocaine Cream 2.5-2.5% Tube TOPICAL WITH DIALYSIS PRN for dialysis Protocol Lorazepam 0.5 mg 03/16/25 23:13 03/20/25 10:57 Lorazepam (*Crx) 0.5 Mg Tablet PO 0.5 mg BID PRN Administration Anxiety Metoprolol Succinate 50 mg 03/17/25 09:00 03/23/25 15:51 Metoprolol Succinate Ext Rel 50 Mg Tabcr PO Not Given QAM ALINA Montelukast Sodium 10 mg 03/17/25 09:00 03/23/25 15:51 Montelukast Sodium 10 Mg Tablet PO Not Given DAILY ALINA Polyethylene Glycol 17 gm 03/20/25 09:00 03/23/25 15:51 Polyethylene Glycol 3350 17 Gm Powd.Pack PO Not Given QAM ALINA Ropinirole HCl 0.5 mg 03/16/25 23:20 03/23/25 17:02 Ropinirole Hcl 0.5 Mg Tablet PO 0.5 mg BID ALINA Administration Fluticasone/Salmeterol 2 puff 03/17/25 08:00 03/23/25 19:37 Fluticasone/Salmeterol 115-21 Mcg Inhaler 1 Puff INHALATION 2 puff Q12HRT ALINA Administration Senna/Docusate Sodium 1 tab 03/19/25 21:00 03/23/25 21:27 Senna/Docusate Sodium Tablet PO 1 tab HS ALINA Administration Trazodone HCl 50 mg 03/16/25 23:20 03/23/25 21:27 Trazodone Hcl 50 Mg Tablet PO 50 mg QHS ALINA Administration Radiology Results: ITS Impressions Head CT 03/16/25 16:58 IMPRESSION: No acute intracranial hemorrhage or extra axial fluid collections. Encephalomalacia changes within the left MCA territory reflective of remote infarct. Chronic white matter microangiopathic changes in the periventricular white matter. All CT scans at this facility are performed using low dose modulation techniques as appropriate to perform exam including the following: automated exposure control; use of iterative reconstruction technique; adjustment of the mA and/or kV according to patient size (this includes techniques or standardized protocols for targeted exams where dose is matched to indication/reason for exam). Foot X-Ray 03/23/25 17:00 IMPRESSION: 1. No significant change in still ununited fractures at the heads of the second and third proximal phalanges across the neck of the fourth proximal phalanx. 2. Mild to moderate polyarticular osteoarthritis in the right fore and midfoot. 3. Chronic juxta articular erosion at the medial head of the first metatarsal with classic location and appearance for gout. Lucencies the base of the fourth and fifth metatarsal could represent additional erosions or osteoarthritis related degenerative subarticular cystlike changes. Labs Labs: Laboratory Results - last 24 hr 03/23/25 03/23/25 03/24/25 16:40 20:44 05:53 POC Capillary Glucose 155 H 160 H 47 L* 03/24/25 06:15 POC Capillary Glucose 76 Quality VTE Prophylaxis VTE prophylaxis: pharmacologic ordered
[2025-03-24 09:23] LABS: Hematocrit 31.0 % (37.0-47.0); Hemoglobin 9.0 g/dL (12.0-15.0); Mean Corpuscular HGB Conc 29.0 g/dl (32-36); Mean Corpuscular Hemoglobin 26.3 pg (26-34); Mean Corpuscular Volume 90.6 fl (80-100); Platelet Count Result 201 k/mm3 (150-375); Red Blood Count 3.42 M/mm3 (4.2-5.4); White Blood Count 6.6 K/mm3 (4.5-10.0)
[2025-03-24] MEDS: METOPROLOL SUCCINATE EXT REL 50 MG TABCR PO (09:38)
[2025-03-24] MEDS: AMIODARONE HCL 200 MG TABLET PO (09:38)
[2025-03-24] MEDS: ISOSORBIDE MONONITRATE 30 MG TAB.ER.24H PO (09:38)
[2025-03-24] MEDS: CALCIUM ACETATE 667 MG TABLET PO ×3 (09:38→17:43)
[2025-03-24] MEDS: MONTELUKAST SODIUM 10 MG TABLET PO (09:38)
[2025-03-24] MEDS: ESCITALOPRAM OXALATE 5 MG TABLET PO (09:40)
[2025-03-24] MEDS: APIXABAN 2.5 MG TABLET PO ×2 (09:40→19:54)
[2025-03-24 09:52] LABS: Alanine Aminotransferase 13 U/L (6-35); Albumin Level 3.2 g/dL (3.5-5.1); Alkaline Phosphatase 106 U/L (38-126); Anion Gap 7 mmol/L (4-12); Aspartate Amino Transferase 24 U/L (14-36); Bilirubin,Total 0.8 mg/dL (0.2-1.3); Blood Urea Nitrogen 22 mg/dL (7-17); Calcium 8.2 mg/dL (8.4-10.2); Carbon Dioxide 31 mmol/L (22-30); Chloride 100 mmol/L (98-107); Estimated CRCL calculation 11 ml/min; Estimated Glomerular Filt Rate 10; Glucose 92 mg/dL (65-110); Potassium 3.9 mmol/L (3.4-5.0); Sodium 138 mmol/L (137-145); Total Protein 6.7 g/dL (6.3-8.2)
[2025-03-24] MEDS: FLUTICASONE/SALMETEROL 115-21 MCG INHALER 1 PUFF 2 PUFF INHALATION ×2 (10:12→21:08)
--- NOTE | 2025-03-24 10:22 | P.PNNP_ITS ---
Progress Note: A&P Assessment and Plan (1) End stage renal disease: Code(s): N18.6 - End stage renal disease Status: Chronic Assessment and Plan: * HD tomorrow * continue M/W/F outpatient dialysis schedule * follow electrolytes, volume status, and clearance (2) AMS (altered mental status): Qualifiers: Altered mental status type: unspecified Qualified Code(s): R41.82 - Altered mental status, unspecified Code(s): R41.82 - Altered mental status, unspecified Status: Acute Assessment and Plan: * clinical improvement noted if not back to baseline * appears to be doing better at this time * head CT negative * follow mentation (3) UTI (urinary tract infection): Code(s): N39.0 - Urinary tract infection, site not specified Status: Acute Assessment and Plan: * admission UA highly suggestive * follow culture data - negative to date * completed course of antibiotics * despite negative culture, improvement in #2 noted with antibiotic therapy (4) Anemia: Code(s): D64.9 - Anemia, unspecified Status: Chronic Assessment and Plan: * due to ESRD * RADHA/Epogen with HD * follow trend of H/H (5) Hypertension: Qualifiers: Hypertension type: unspecified Qualified Code(s): I10 - Essential (primary) hypertension Code(s): I10 - Essential (primary) hypertension Status: Chronic Assessment and Plan: * reasonable control * resume home BP medications * follow trend of hemodynamics (6) Type 2 diabetes mellitus with hyperglycemia: Qualifiers: Diabetes mellitus snf insulin use: with intermediate accountant use Qualified Code(s): E11.65 - Type 2 diabetes mellitus with hyperglycemia; Z79.4 - intermediate (current) use of insulin Code(s): E11.65 - Type 2 diabetes mellitus with hyperglycemia Status: Chronic Assessment and Plan: * follow accu-cheks * glycemic control per hospitalist Will continue to follow. L Subjective Date/time seen: 03/24/25 10:22 Interval history: Follow-up for end stage renal disease on hemodialysis. Tolerated dialysis treatment yesterday without any issues or problems; no apparent distress noted when seen and ROS limited due to expressive aphasia; no issues/events overnight or earlier this morning. Exam 2 Narrative: General: elderly but WD/WN female in NAD Heart: normal S1 and S2; no rub Lungs: clear anteriorly; decreased at bases Abdomen: soft, nontender, nondistended, positive bowel sounds Extremities: no cyanosis or clubbing; trace edema Skin: No rash or nodules Objective Data Vital Signs Vital Signs: Vital Signs Temp Pulse Resp BP Pulse Ox O2 Del Method FiO2 03/24/25 10:12 59 L 20 96 Room Air 03/24/25 09:38 56 L 03/24/25 09:38 82 03/24/25 06:00 97.8 F 56 L 18 180/64 H 98 03/23/25 20:23 97.4 F L 61 16 140/63 97 03/23/25 19:40 55 L 20 95 Room Air 21 03/23/25 19:38 54 L 20 03/23/25 18:31 145/65 H 03/23/25 16:31 98.3 F 61 18 191/68 H 97 03/23/25 14:15 98.3 F 68 18 168/67 H 98 03/23/25 13:47 58 L 158/62 H 03/23/25 13:30 58 L 162/54 H 03/23/25 13:15 57 L 179/59 H 03/23/25 13:00 58 L 152/53 H 03/23/25 12:45 59 L 163/66 H 03/23/25 12:30 71 135/105 H Intake/Output Intake/Output: Intake & Output 03/21/25 03/22/25 03/23/25 03/24/25 23:59 23:59 23:59 23:59 Intake Total 1530 1618 680 340 Output Total 1999 Balance 1530 1618 -1320 340 Meds/Results Medications: Active Medications Generic Name Dose Route Start Last Admin Trade Name Freq PRN Reason Stop Dose Admin Acetaminophen 650 mg 03/17/25 20:15 03/23/25 15:31 Acetaminophen 325 Mg Tablet PO 650 mg Q6H PRN Administration Mild Pain (1-3) or Fever Albuterol 2.5 mg 03/16/25 23:13 Albuterol Sulfate Neb 2.5 Mg/3 Ml Inh INHALATION Q4-6H PRN Shortness Of Breath Or Wheezing Amiodarone HCl 200 mg 03/17/25 09:00 03/24/25 09:38 Amiodarone Hcl 200 Mg Tablet PO 200 mg QAM ALINA Administration Apixaban 2.5 mg 03/16/25 23:15 03/24/25 09:40 Apixaban 2.5 Mg Tablet PO 2.5 mg Q12HR ALINA Administration Atorvastatin Calcium 20 mg 03/16/25 23:15 03/23/25 21:27 Atorvastatin 20 Mg Tablet PO 20 mg HS ALINA Administration Calcium Acetate 667 mg 03/17/25 08:00 03/24/25 09:38 Calcium Acetate 667 Mg Tablet PO 667 mg TIDWM ALINA Administration Dextrose 12.5 gm 03/16/25 23:19 Dextrose 50% 25 Gm/50 Ml Syringe IV PUSH PRN PRN Hypoglycemia Protocol Escitalopram Oxalate 5 mg 03/17/25 09:00 03/24/25 09:40 Escitalopram Oxalate 5 Mg Tablet PO 5 mg DAILY ALINA Administration Glucagon 1 mg 03/16/25 23:19 03/24/25 05:58 Glucagon For Inj 1 Mg Vial IM 1 mg PRN PRN Administration Hypoglycemia Protocol Glucose 15 gm 03/16/25 23:19 Glucose Oral Gel 15 Gm Of Glucse In 37.5 Gm Tube PO PRN PRN Hypoglycemia Protocol Hydralazine HCl 25 mg 03/16/25 23:20 03/24/25 09:40 Hydralazine Hcl 25 Mg Tablet PO 25 mg TID ALINA Administration Dextrose 1,000 mls @ 100 mls/hr 03/16/25 23:19 Dextrose 5% 1,000 Ml IVPB PRN PRN Hypoglycemia Protocol Albumin Human 50 mls @ 999 mls/hr 03/20/25 06:17 Albutein IVPB 04/19/25 06:16 Q10M PRN HYPOTENSION Insulin Aspart 2 - 5 units 03/17/25 08:00 03/24/25 12:14 Insulin Aspart (*Bkc) 100 Units/Ml SUB-Q Not Given TIDWM ALINA Protocol Insulin Glargine 14 units 03/17/25 18:00 03/23/25 17:09 Insulin Glargine (*Bkc) 100 Units/Ml SUB-Q 14 units QPM ALINA Administration Isosorbide Mononitrate 30 mg 03/17/25 09:00 03/24/25 09:38 Isosorbide Mononitrate 30 Mg Tab.Er.24h PO 30 mg DAILY ALINA Administration Levothyroxine Sodium 200 mcg 03/17/25 06:30 03/24/25 05:48 Levothyroxine Sodium 100 Mcg Tablet PO 200 mcg DAILY@0630 ALINA Administration Lidocaine/Prilocaine 1 each 03/18/25 06:43 Lidocaine/Prilocaine Cream 2.5-2.5% Tube TOPICAL WITH DIALYSIS PRN for dialysis Protocol Lorazepam 0.5 mg 03/16/25 23:13 03/20/25 10:57 Lorazepam (*Crx) 0.5 Mg Tablet PO 0.5 mg BID PRN Administration Anxiety Metoprolol Succinate 50 mg 03/17/25 09:00 03/24/25 09:38 Metoprolol Succinate Ext Rel 50 Mg Tabcr PO 50 mg QAM ALINA Administration Montelukast Sodium 10 mg 03/17/25 09:00 03/24/25 09:38 Montelukast Sodium 10 Mg Tablet PO 10 mg DAILY ALINA Administration Polyethylene Glycol 17 gm 03/20/25 09:00 03/24/25 09:38 Polyethylene Glycol 3350 17 Gm Powd.Pack PO 17 gm QAM ALINA Administration Ropinirole HCl 0.5 mg 03/16/25 23:20 03/24/25 09:40 Ropinirole Hcl 0.5 Mg Tablet PO 0.5 mg BID ALINA Administration Fluticasone/Salmeterol 2 puff 03/17/25 08:00 03/24/25 10:12 Fluticasone/Salmeterol 115-21 Mcg Inhaler 1 Puff INHALATION 2 puff Q12HRT ALINA Administration Senna/Docusate Sodium 1 tab 03/19/25 21:00 03/23/25 21:27 Senna/Docusate Sodium Tablet PO 1 tab HS ALINA Administration Trazodone HCl 50 mg 03/16/25 23:20 03/23/25 21:27 Trazodone Hcl 50 Mg Tablet PO 50 mg QHS ALINA Administration Radiology Results: ITS Impressions Head CT 03/16/25 16:58 IMPRESSION: No acute intracranial hemorrhage or extra axial fluid collections. Encephalomalacia changes within the left MCA territory reflective of remote infarct. Chronic white matter microangiopathic changes in the periventricular white matter. All CT scans at this facility are performed using low dose modulation techniques as appropriate to perform exam including the following: automated exposure control; use of iterative reconstruction technique; adjustment of the mA and/or kV according to patient size (this includes techniques or standardized protocols for targeted exams where dose is matched to indication/reason for exam). Foot X-Ray 03/23/25 17:00 IMPRESSION: 1. No significant change in still ununited fractures at the heads of the second and third proximal phalanges across the neck of the fourth proximal phalanx. 2. Mild to moderate polyarticular osteoarthritis in the right fore and midfoot. 3. Chronic juxta articular erosion at the medial head of the first metatarsal with classic location and appearance for gout. Lucencies the base of the fourth and fifth metatarsal could represent additional erosions or osteoarthritis related degenerative subarticular cystlike changes. Labs Labs: Laboratory Tests 03/24/25 09:12 03/24/25 09:12 Calcium 8.2 L Total Bilirubin 0.8 AST 24 ALT 13 Alkaline Phosphatase 106 Total Protein 6.7 Albumin 3.2 L
--- NOTE | 2025-03-24 15:30 | P.DS_ITS ---
DS: Admitting Diagnosis Discharge Date 03/24/2025 Admitting Diagnosis AMS Acute UTI HTN ESRD on hemodialysis DM Chronic wound DS: Discharge Diagnosis Discharge Diagnosis (1) AMS (altered mental status): Qualifiers: Altered mental status type: unspecified Qualified Code(s): R41.82 - Altered mental status, unspecified Code(s): R41.82 - Altered mental status, unspecified Status: Acute (2) Acute UTI: Code(s): N39.0 - Urinary tract infection, site not specified Status: Acute (3) Hypertension: Qualifiers: Hypertension type: unspecified Qualified Code(s): I10 - Essential (primary) hypertension Code(s): I10 - Essential (primary) hypertension Status: Chronic (4) ESRD on hemodialysis: Code(s): N18.6 - End stage renal disease; Z99.2 - Dependence on renal dialysis Status: Acute (5) Diabetes: Code(s): E11.9 - Type 2 diabetes mellitus without complications Status: Acute (6) Chronic wound: Code(s): T14.8XXA - Other injury of unspecified body region, initial encounter Status: Acute DS: Summary Hospital Course Reason for hospitalization: AMS Acute UTI HTN ESRD on hemodialysis DM Chronic wound Hospital Course: 74-year-old female with a complex medical history including end-stage renal disease on hemodialysis, 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 She was admitted after her noted acute confusion and functional decline. Specifically, she was unable to perform routine tasks such as pulling up her pants and feeding herself, and subsequently sustained a ground-level fall with minor head trauma. On arrival, she was afebrile and hemodynamically stable, with no acute distress. Neurologically, she was at her baseline with expressive aphasia and right-sided deficits, and head CT showed only chronic post-infarct changes without acute pathology. Initial laboratory evaluation revealed a normocytic anemia consistent with her chronic ESRD, mild hyponatremia, and a urinalysis notable for significant pyuria, proteinuria, and hematuria, but without bacteriuria. Given her altered mental status and abnormal urinalysis, empiric antibiotics were initiated for possible urinary tract infection, despite the absence of fever or leukocytosis. Blood cultures and urine cultures were obtained; urine culture ultimately returned negative, but she completed a course of antibiotics (initially Rocephin, then transitioned to Augmentin) due to ongoing concern for infection-related metabolic encephalopathy, as she was unable to reliably report symptoms. Antibiotic course was completed during admission. Her hemodialysis schedule was maintained (Sunday/Sunday/Sunday), and neph rology was consulted for ongoing management. She tolerated dialysis without complications during admission. Her chronic right wound to the right heal was monitored and showed no signs of acute infection. Foot imaging confirmed chronic changes without new findings. Patient to follow up with podiatry. She also has history of vascular disease and should keep her appointment with [facility] vascular. Throughout her stay, her mental status gradually returned to baseline, with no new focal deficits or further episodes of confusion. She remained afebrile and hemodynamically stable, with no evidence of acute infection or decompensation of her chronic conditions. At time of discharge confirmed with that patient was back to her baseline. All questions and concerns were addressed at that time. Patient discharged to SNF in a stable condition. She is to follow up with her PCP in 1 week. Status at Discharge Functional status at discharge: uses cane/walker Time Spent with Patient Time attestation: Total time spent providing and/or coordinating discharge services: Time spent: Greater than 30 minutes Exam Narrative: AF HR 59 RR 20 SPo2 96 BP 100/82 General:female in no acute respiratory distress who is nontoxic appearing, sitting up in chair HEENT: Normocephalic. Atraumatic. Extraocular movement intact. Sclera clear and anicteric. No facial asymmetry. Chest: Lungs are clear to auscultation bilaterally. CV: Heart was regular rate and rhythm. Abd: Abdomen was soft. Nontender. Nondistended. Positive bowel sounds. Ext: No clubbing, cyanosis or edema. Chronic wound to the right Achilles region without redness, warmth, or drainage. Neuro: Patient is alert. Chronic expressive aphasia. DS: Data Data Completed and Pending Completed studies during hospitalization: foot xr head ct Labs on day of discharge: Labs from last 24 hours 03/24/25 03/24/25 03/24/25 11:24 09:12 08:25 WBC 6.6 RBC 3.42 L Hgb 9.0 L Hct 31.0 L MCV 90.6 MCH 26.3 MCHC 29.0 L RDW 19.5 H Plt Count 201 MPV 9.7 Sodium 138 Potassium 3.9 Chloride 100 Carbon Dioxide 31 H Anion Gap 7 BUN 22 H D Creatinine 4.31 H Estim Creat Clear Calc 11 Estimated GFR 10 L Glucose 92 POC Capillary Glucose 104 120 H Calcium 8.2 L Total Bilirubin 0.8 AST 24 ALT 13 Alkaline Phosphatase 106 Total Protein 6.7 Albumin 3.2 L 03/24/25 03/24/25 03/23/25 06:15 05:53 20:44 WBC RBC Hgb Hct MCV MCH MCHC RDW Plt Count MPV Sodium Potassium Chloride Carbon Dioxide Anion Gap BUN Creatinine Estim Creat Clear Calc Estimated GFR Glucose POC Capillary Glucose 76 47 L* 160 H Calcium Total Bilirubin AST ALT Alkaline Phosphatase Total Protein Albumin 03/23/25 16:40 WBC RBC Hgb Hct MCV MCH MCHC RDW Plt Count MPV Sodium Potassium Chloride Carbon Dioxide Anion Gap BUN Creatinine Estim Creat Clear Calc Estimated GFR Glucose POC Capillary Glucose 155 H Calcium Total Bilirubin AST ALT Alkaline Phosphatase Total Protein Albumin Discharge Plan Discharge Attending physician on discharge: Felix Macedo Consulting providers: Ilsa Henley; Dimas Rios Discharging Clinician: Ilsa Henley Anticipated Discharge Date/Time: 03/24/25 13:49 Patient Disposition: SNF Activity: as tolerated Diet: as tolerated and diabetic Discharge Instructions: Discharge disposition: Patient admitted to the hospital for altered mental status, resolved during hospitalization UA concerning for infection, antibiotic course completed on 03/23 Eat well balanced meals and stay hydrated Keep active to remain strong Avoid use of diapers or pads Good tiffany Care every 2 hours Patient has chronic appearing fractures and osteoarthritis of the right foot on imaging Patient also has vascular disease to this extremity Patient to follow up with podiatry, call for an appointment Patient to follow up with [facility] vascular Continue dialysis as previously scheduled Monitor glucose levels with accuchecks ACHS Continue insulin as previously prescribed Monitor blood pressures Take caution while standing, rising, or moving Change positions slowly taking a break between each position change If you standing feel dizzy sit back down and take a break Encouraged to continue with yearly vaccinations Return to the emergency department if he developed sudden shortness of breath, chest pain, nausea, vomiting, upset stomach or intractable diarrhea Return to the emergency department if you develop fever greater than 100.5 Follow-up with the primary care physician within 1-2 weeks Thank you for choosing [facility] for your healthcare needs Patient Instructions: Apixaban (By mouth), Blood Thinners (GEN), Urinary Tract Infection in Older Adults (DC) Patient Language: Other Stand Alone Forms: General Discharge Information Follow-up/Referrals: Rikki Amezquita MD [Primary Care Provider, Family Practice] - 1 Week Yoan Gonzalez Jr., DPM [Physician, Podiatry] - Call for Appointment Discharge Medications: Continued insulin aspart U-100 [Novolog FlexPen U-100 Insulin] 100 unit/mL (3 mL) insulin pen See Rx Instructions .ROUTE .COMPLEX MDD 60 Rx Instructions: sliding scale 200-249 2u 250-299 3u 300-349 4u 350 greater 6u albuterol sulfate [Ventolin HFA] 90 mcg/actuation HFA aerosol inhaler See Rx Instructions .ROUTE .COMPLEX Qty: 18 6RF Dose Instruction: INHALE 2 PUFFS BY MOUTH 4 TIMES DAILY NEEDED FOR SHORTNESS OF BREATH OR WHEEZING. Rx Instructions: INHALE 2 PUFFS BY MOUTH 4 TIMES DAILY NEEDED FOR SHORTNESS OF BREATH OR WHEEZING. metoprolol succinate 50 mg tablet extended release 24 hr 50 mg PO QAM Qty: 90 0RF montelukast 10 mg tablet 10 mg PO DAILY Qty: 90 3RF insulin glargine [Lantus Solostar U-100 Insulin] 100 unit/mL (3 mL) insulin pen 18 unit subcut QPM Qty: 15 1RF Rx Instructions: INJECT 18 UNITS UNDER THE SKIN AT BEDTIME escitalopram oxalate [Lexapro] 5 mg tablet 5 mg PO DAILY Qty: 90 4RF amiodarone 200 mg tablet 200 mg PO QAM calcium acetate 667 mg tablet 667 mg PO DAILY levothyroxine 200 mcg capsule 200 mcg PO DAILY ropinirole 0.5 mg tablet 0.5 mg PO BID Eliquis 2.5 mg tablet 2.5 mg PO BID albuterol sulfate 2.5 mg /3 mL (0.083 %) solution for nebulization 2.5 mg inhalation Q4-6H PRN (Reason: shortness of breath or wheezing) Qty: 90 6RF budesonide-formoterol 160-4.5 mcg/actuation HFA aerosol inhaler 2 puff inhalation Q12H Qty: 10.2 6RF trazodone 50 mg tablet 50 mg PO QHS Qty: 30 5RF atorvastatin [Lipitor] 20 mg tablet 20 mg PO HS Qty: 90 1RF hydralazine 25 mg tablet 25 mg PO TID Qty: 270 0RF isosorbide mononitrate 30 mg tablet extended release 24 hr 30 mg PO DAILY Qty: 90 0RF lorazepam [Ativan] 0.5 mg tablet 0.5 mg PO BID PRN (Reason: anxiety) Qty: 60 0RF colestipol 1 gram tablet 2 g PO DAILY 30 Days Qty: 60 0RF Discontinued amoxicillin-pot clavulanate [Augmentin] 500-125 mg Tablet 1 tablet PO QHS Qty: 4 0RF Date of admission: 03/17/25 16:28 Primary Care Provider: Rikki Amezquita Admitting Provider: Pamela Burch Attending physician on admission: Pamela Bucrh Condition: Stable Hospitalist MIPS Heart Failure (Exclusion) Patient has history of Heart Transplant or Left Ventricular Assistive Device?: No IF YES, STOP HERE Heart Failure (Qualifier) Patient has current or prior documentation of LVEF less than or equal to 40%, or mod/servere depressed LVSF?: No IF NO, STOP HERE
[2025-03-24] MEDS: INSULIN GLARGINE (*BKC) 100 UNITS/ML 14 UNITS SUB-Q (17:45)
[2025-03-24] MEDS: ATORVASTATIN 20 MG TABLET PO (19:54)
--- NOTE | 2025-03-24 22:15 | PC.NURSE ---
[facility] called and updated that patient left at 2210. Also called Anjum per his request and let him know patient left facility.
== END 2025-03-24 22:10 | DRG 689 ==
LOC: ANHED 18:26 → ANH3MED 18:43
PROVIDERS: General Practice; Internal Medicine Nephrology; Admitting Provider Family Medicine; Emergency Provider Emergency Medicine; PCP Family Medicine; Visit Provider Student in an Organized Health Care Education/Training Program
DX: N39.0 Urinary tract infection, site not specified (principal); G93.41 Metabolic encephalopathy; N18.6 End stage renal disease; I50.32 Chronic diastolic (congestive) heart failure; I69.351 Hemiplegia and hemiparesis following cerebral infarction affecting right dominant side; L97.219 Non-pressure chronic ulcer of right calf with unspecified severity; I48.0 Paroxysmal atrial fibrillation; I25.10 Atherosclerotic heart disease of native coronary artery without angina pectoris; I70.201 Unspecified atherosclerosis of native arteries of extremities, right leg; I87.2 Venous insufficiency (chronic) (peripheral); J44.9 Chronic obstructive pulmonary disease, unspecified; N25.0 Renal osteodystrophy; E11.22 Type 2 diabetes mellitus with diabetic chronic kidney disease; E11.649 Type 2 diabetes mellitus with hypoglycemia without coma; E11.40 Type 2 diabetes mellitus with diabetic neuropathy, unspecified; E11.51 Type 2 diabetes mellitus with diabetic peripheral angiopathy without gangrene; E03.9 Hypothyroidism, unspecified; D63.1 Anemia in chronic kidney disease; G47.33 Obstructive sleep apnea (adult) (pediatric); K21.9 Gastro-esophageal reflux disease without esophagitis; F41.1 Generalized anxiety disorder; W19.XXXA Unspecified fall, initial encounter; I69.398 Other sequelae of cerebral infarction; I69.392 Facial weakness following cerebral infarction; I69.320 Aphasia following cerebral infarction; Z86.718 Personal history of other venous thrombosis and embolism; Z99.2 Dependence on renal dialysis; Z79.4 Long term (current) use of insulin; Z79.01 Long term (current) use of anticoagulants; Z87.891 Personal history of nicotine dependence
CPT/HCPCS: 36415; 70450; 73620; 80053; 80069; 81001; 82948; 83605; 85025; 85027; 85610; 85730; 86140; 87086; 94640; 97110; 97161; 97166; 97530; 97535; 99285; A9270; G0257; G0378; J0696; J1610; J1815; J7030; Q5105

== ENCOUNTER 2025-04-20 14:30 | Emergency (ER) | payer MEDICARE, SELFPAY ==
--- OUTSIDE RECORDS SUMMARY | 2022-05-13 15:00 | XMS_ITS | Encounter Summary ---
Author Organization [facility] Address [address] [facility] [place] [address] Care Team Providers Care Multi Site Leasing Consultant Name Role Phone Rikki Amezquita MD Primary Care Provider [phone] Encounter Details Date Type Department Care Team (Latest Contact Info) Description 05/13/2022 3:00 PM INTEGRATED CIRCUIT FABRICATOR Hospital Encounter [address] [address] Allison Patrick MD [employer] Social History Tobacco Use Types Packs/Day Years Used Date Smoking Tobacco: Former Cigarettes 1.5 23 1 965 - 1988 Smokeless Tobacco: Never Comments:Quit 30 years ago [...] on file documented as of this encounter Functional Status * Question Answer Date of Assessment Author Q1: How often do you have a drink containing alcohol? Monthly or less 10/05/2022 12:17 PM CDT Camila Silva RN Q2: How many drinks containing alcohol do you have on a typical day when you are drinking? Patient does not drink 10/05/2022 12:17 PM Camila Valerio RN Q3: How often do you have six or more drinks on one occasion? Never 10/05/2022 12:17 PM Camila Valerio RN * AUDIT-C Score Answer Date of Assessment Author 1 10/05/2022 12:17 PM Sana Valerio RN documented as of this encounter Plan of Treatment Upcoming Encounters Date Type Department Care Team (Late st Contact Info) Description 06/23/2025 2:45 PM INTEGRATED CIRCUIT FABRICATOR Appointment [facility] Vascular Services [address] [place] [address], [place] [address] documented as of this encounter Visit Diagnoses Not on filedocumented in this encounter Additional Health Concerns Infection Onset Date Last Indicated Resolved Time CDIFF Under Investigation 05/23/2022 05/23/2022 8:26 AM INTEGRATED CIRCUIT FABRICATOR COVID-19 Under Investigation 05/27/2022 05/27/2022 05/27/2022 11:54 PM INTEGRATED CIRCUIT FABRICATOR documented as of this encounter Care Teams Multi Site Leasing Consultant Relationship Specialty Start Date End Date Rikki Amezquita MD [address] [place] [address] PCP - General 11/28/21 documented as of this encounter
[2025-04-20 14:32] VITALS: BP 148/59; PULSE 52; RESP 11; TEMP 36.4; O2SAT 98
--- NOTE | 2025-04-20 14:48 | ED.FALL ---
HPI - Fall General Chief Complaint: Fall Stated Complaint: low blood sugar Time Seen by Provider: 04/20/25 14:44 History of Present Illness HPI Narrative: Pt was to go to dialysis today but was weak and called 911 for lift assist. Pt BS was 32. Pt given D10 and now back to normal. Pt admits to taking insulin this morning and not eating. Pt has ulcer to back of right heal that appears chronic. Pt is demented and is baseline per EMS able to respond with yes or no only. Related Data Home Medications ?Medication ?Instructions ?Recorded ?Confirmed ?Last Taken ?Type insulin aspart U-100 100 unit/mL See Rx Instructions .Route .COMPLEX 05/20/24 04/16/25 Unknown History (3 mL) subcutaneous pen (Novolog FlexPen U-100 Insulin aspart) amiodarone 200 mg tablet 200 mg PO QAM 09/02/24 04/16/25 03/15/25 History apixaban 2.5 mg tablet (Eliquis) 2.5 mg PO BID 03/08/25 04/16/25 03/16/25 History calcium acetate 667 mg tablet 667 mg PO DAILY 03/16/25 04/16/25 Unknown History levothyroxine 200 mcg capsule 200 mcg PO DAILY 03/16/25 04/16/25 03/16/25 History ropinirole 0.5 mg tablet 0.5 mg PO BID 03/16/25 04/16/25 Unknown History Allergies Allergy/AdvReac Type Severity Reaction Status Date / Time nickel Allergy Intermediate hives and Verified 04/16/25 14:48 itchy rash Sulfa (Sulfonamide Allergy Intermediate Urticaria Verified 04/16/25 14:48 Antibiotics) and hives Calcium Channel Blocking AdvReac Intermediate STATES Verified 04/16/25 14:48 Agents-Dih CANNOT TAKE SINCE SHE HAS ASTHMA diphenhydramine AdvReac Intermediate restless Verified 04/16/25 14:48 legs nifedipine AdvReac Intermediate palpitation Verified 04/16/25 14:48 s Djwgkpv-[id number]-CrH Reductase AdvReac Intermediate muscle Verified 04/16/25 14:48 Inhibitor (Xkziwuh-Kxy-Bxc cramps Reductase Inhibitor) CALCIUMCHANNEL Allergy Unknown SEE COMMIT Uncoded 04/20/25 11:03 Review of Systems Review of Systems: ROS unobtainable: Yes unobtainable due to mental status PMFSH Past Medical History Medical History Femoral artery stenosis, right 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 Paroxysmal atrial fibrillation Bilateral primary osteoarthritis of knee Renal osteodystrophy DVT of lower extremity (deep venous thrombosis) Asthma-COPD overlap syndrome Left-sided cerebrovascular accident (CVA) (01/04/24) With residual left-sided visual neglect, profound expressive aphasia and right-sided hemiplegia ESRD on hemodialysis (02/17/22) Chronic anticoagulation Obstructive sleep apnea Hypothyroidism Insulin dependent type 2 diabetes mellitus Generalized anxiety disorder Chronic obstructive pulmonary disease Chronic diastolic (congestive) heart failure Coronary artery disease involving [place] heart without angina pectoris Depression GERD without esophagitis Peripheral polyneuropathy Surgical History Surgical History History of tracheostomy (04/24/22) With subsequent removal History of cataract extraction History of tonsillectomy History of cholecystectomy History of gastrostomy tube placement and removal Family History Family History Father Hypertension Family history of coronary artery disease Sibling Hypertension Family history of coronary artery disease Mother Cerebrovascular accident Other Asthma Depression Family history of Alzheimer's disease Family history of arthritis Family history of cardiovascular disease Family history of lymphoma Family history of obesity Family history of seizure disorder Social History Social History Social History: Surrogate medical decision maker: Anjum (spouse) or Gwen (daughter) Kyra. Code status: Do not intubate Smoking packs per day: 1 Smoking cigarettes per day: 20.0 Years smoked: 22 Smoking pack-years: 22.00 Smoking status: Former smoker Tobacco type: cigarettes Second hand tobacco smoke exposure: No Smoking end date: 05/07/84 Alcohol intake: never Alcohol use details: special occasions Substance use: never Substance use type: does not use Last use: 01/05/23 Lack of Transportation: No Lack of Food: Never True Current Housing: I Have Housing Concerned About Future Housing: No Difficulty Paying Gas/Electric Bills: No Difficulty Paying for Meds: No Currently Unemployed: No Education: High School Diploma/GED Difficulty w/ Childcare or Family Care: No Living arrangements: with family Occupation/Education: retired Spiritual care concerns: No Exam Const: General: healthy appearing and no acute distress Nutritional Appearance: well nourished Orientation/consciousness: patient oriented x3 Limitations: no limitations Neck: Neck: normal visual inspection Chest: Chest palpation & inspection: normal inspection of the chest Resp: Effort & Inspection: normal respiratory effort Auscultation: clear to auscultation bilaterally Cardio: Rate: regular rate Rhythm: regular rhythm GI: GI Palp: Yes Soft to palpation and No Tenderness to palpation present (GI) Auscultation: normal bowel sounds Skin: General skin exam: normal color Rashes: no rashes Wounds: wounds noted (right heel ulcer) Neuro: General: moves all extremities, no meningeal signs and no focal motor deficits Speech: normal speech Extrem: General: no clubbing, cyanosis or edema Psych: Attitude: cooperative Course Vital Signs Vital signs: Vital Signs Temperature 97.6 F 04/20/25 14:32 Pulse Rate 52 L 04/20/25 14:32 Respiratory Rate 11 L 04/20/25 14:32 Blood Pressure 148/59 H 04/20/25 14:32 Pulse Oximetry 98 04/20/25 14:32 Oxygen Delivery Autopap 04/20/25 14:32 Temperature 97.6 F 04/20/25 14:32 Pulse Rate 56 L 04/20/25 16:50 Respiratory Rate 15 04/20/25 16:50 Blood Pressure 124/43 L 04/20/25 16:50 Pulse Oximetry 98 04/20/25 16:50 Oxygen Delivery Autopap 04/20/25 14:32 MDM MDM Narrative Medical decision making narrative: Will feed patient and check some baxid labs and reassess. blood sugar improved. Pt baseline. pt has intermittentj anemia and is anemic now. Pt says this happens is not having any dark stools. P{t in no resp distres so doesn't need urgent dialysis. Pt to see wound care at [facility] but missed appointment today. will start on po antibiotics for now. Pt ok to go home. Differential Diagnosis Differential Diagnosis: hypoglycemia, infection of wound cellulitis Lab Data 04/20/25 15:27 04/20/25 15:27 Labs: Lab Results 04/20/25 04/20/25 Range/Units 15:27 16:52 WBC 8.1 (4.5-10.0) K/mm3 RBC 3.10 L (4.2-5.4) M/mm3 Hgb 8.1 L (12.0-15.0) g/dL Hct 27.9 L (37.0-47.0) % MCV 90.0 (80-100) fl MCH 26.1 (26-34) pg MCHC 29.0 L (32-36) g/dl RDW 18.6 H (11.5-14.5) % Plt Count 345 D (150-375) k/mm3 MPV 9.9 (7.4-10.4) fl Immature Gran % (Auto) 0.5 (0-0.5) % Neut % (Auto) 72.5 (45.5-73.1) % Lymph % (Auto) 9.9 L (18.3-44.2) % [place] % (Auto) 10.4 H (2.6-8.5) % Eos % (Auto) 5.7 H (0-4.4) % Baso % (Auto) 1.0 (0.2-1.2) % Lymph # (Auto) 0.80 L (0.9-3.2) K/mm3 [place] # (Auto) 0.8 H (0.1-0.6) K/mm3 Eos # (Auto) 0.5 H (0-0.3) K/mm3 Baso # (Auto) 0.1 (0.0-0.1) K/mm3 Abs Immat Gran (auto) 0.04 H (0.00-0.031) K/mm3 Absolute Neuts (auto) 5.9 (1.3-6.7) K/mm3 Absolute Nucleated RBC 0.000 (0.0-0.012) K/mm3 Band Neutrophils % 0 (0-6) % Nucleated RBC % 0.0 (0.0-0.2) % Platelet Estimate Adequate (Adequate) Hypochromasia 1+ Anisocytosis 2+ Schistocytes None seen Sodium 137 (137-145) mmol/L Potassium 3.9 (3.4-5.0) mmol/L Chloride 99 (98-107) mmol/L Carbon Dioxide 32 H (22-30) mmol/L Anion Gap 6 (4-12) mmol/L BUN 39 H D (7-17) mg/dL Creatinine 6.21 H (0.7-1.0) mg/dL Estim Creat Clear Calc Not Reportable Estimated GFR 7 L (59 - ) Glucose 63 L (65-110) mg/dL POC Capillary Glucose 127 H (65-105) mg/dl Calcium 8.5 (8.4-10.2) mg/dL Magnesium 2.2 (1.6-2.3) mg/dL Total Bilirubin 0.6 (0.2-1.3) mg/dL AST 27 (14-36) U/L ALT 17 (6-35) U/L Alkaline Phosphatase 122 (38-126) U/L Total Protein 7.9 (6.3-8.2) g/dL Albumin 3.6 (3.5-5.1) g/dL Discharge Plan Discharge Clinical Impression: Hypoglycemia, Leg wound, right Patient Disposition: Home Condition: Stable Instructions: Antibiotic Form, Hypoglycemia in a Person with Diabetes (DC), Foot Ulcers in a Person with Diabetes (ED) Patient Language: Portuguese Prescriptions: New clindamycin HCl [Cleocin HCl] 300 mg capsule 300 mg PO Q6H Qty: 40 0RF No Action insulin aspart U-100 [Novolog FlexPen U-100 Insulin] 100 unit/mL (3 mL) insulin pen See Rx Instructions .ROUTE .COMPLEX MDD 60 Rx Instructions: sliding scale 200-249 2u 250-299 3u 300-349 4u 350 greater 6u albuterol sulfate [Ventolin HFA] 90 mcg/actuation HFA aerosol inhaler See Rx Instructions .ROUTE .COMPLEX Qty: 18 6RF Dose Instruction: INHALE 2 PUFFS BY MOUTH 4 TIMES DAILY NEEDED FOR SHORTNESS OF BREATH OR WHEEZING. Rx Instructions: INHALE 2 PUFFS BY MOUTH 4 TIMES DAILY NEEDED FOR SHORTNESS OF BREATH OR WHEEZING. metoprolol succinate 50 mg tablet extended release 24 hr 50 mg PO QAM Qty: 90 0RF montelukast 10 mg tablet 10 mg PO DAILY Qty: 90 3RF insulin glargine [Lantus Solostar U-100 Insulin] 100 unit/mL (3 mL) insulin pen 18 unit subcut QPM Qty: 15 1RF Rx Instructions: INJECT 18 UNITS UNDER THE SKIN AT BEDTIME tramadol 25 mg tablet 25 mg PO Q12H Qty: 60 0RF escitalopram oxalate [Lexapro] 5 mg tablet 5 mg PO DAILY Qty: 90 4RF amiodarone 200 mg tablet 200 mg PO QAM calcium acetate 667 mg tablet 667 mg PO DAILY levothyroxine 200 mcg capsule 200 mcg PO DAILY ropinirole 0.5 mg tablet 0.5 mg PO BID Eliquis 2.5 mg tablet 2.5 mg PO BID albuterol sulfate 2.5 mg /3 mL (0.083 %) solution for nebulization 2.5 mg inhalation Q4-6H PRN (Reason: shortness of breath or wheezing) Qty: 90 6RF budesonide-formoterol 160-4.5 mcg/actuation HFA aerosol inhaler 2 puff inhalation Q12H Qty: 10.2 6RF trazodone 50 mg tablet 50 mg PO QHS Qty: 30 5RF atorvastatin [Lipitor] 20 mg tablet 20 mg PO HS Qty: 90 1RF hydralazine 25 mg tablet 25 mg PO TID Qty: 270 0RF isosorbide mononitrate 30 mg tablet extended release 24 hr 30 mg PO DAILY Qty: 90 0RF lorazepam [Ativan] 0.5 mg tablet 0.5 mg PO BID PRN (Reason: anxiety) Qty: 60 0RF Follow-up/Referrals: Rikki Amezquita MD [Primary Care Provider, Family Practice]
[2025-04-20 15:00] VITALS: BP 140/58; PULSE 53; RESP 10; O2SAT 100
[2025-04-20 15:42] LABS: Hematocrit 27.9 % (37.0-47.0); Hemoglobin 8.1 g/dL (12.0-15.0); Immature Granulocyte Percent A 0.5 % (0-0.5); Lymphocytes Absolute Auto 0.80 K/mm3 (0.9-3.2); Mean Corpuscular HGB Conc 29.0 g/dl (32-36); Mean Corpuscular Hemoglobin 26.1 pg (26-34); Mean Corpuscular Volume 90.0 fl (80-100); Nucleated Red Blood Cells Absolute Auto 0.000 K/mm3 (0.0-0.012); Nucleated Red Blood Cells Perc 0.0 % (0.0-0.2); Platelet Count Result 345 k/mm3 (150-375); Red Blood Count 3.10 M/mm3 (4.2-5.4); White Blood Count 8.1 K/mm3 (4.5-10.0)
[2025-04-20 15:54] LABS: Alanine Aminotransferase 17 U/L (6-35); Albumin Level 3.6 g/dL (3.5-5.1); Alkaline Phosphatase 122 U/L (38-126); Anion Gap 6 mmol/L (4-12); Aspartate Amino Transferase 27 U/L (14-36); Bilirubin,Total 0.6 mg/dL (0.2-1.3); Blood Urea Nitrogen 39 mg/dL (7-17); Calcium 8.5 mg/dL (8.4-10.2); Carbon Dioxide 32 mmol/L (22-30); Chloride 99 mmol/L (98-107); Estimated Glomerular Filt Rate 7; Glucose 63 mg/dL (65-110); Magnesium 2.2 mg/dL (1.6-2.3); Potassium 3.9 mmol/L (3.4-5.0); Sodium 137 mmol/L (137-145); Total Protein 7.9 g/dL (6.3-8.2)
[2025-04-20 16:00] VITALS: BP 120/53; PULSE 51; RESP 18; O2SAT 99
[2025-04-20 16:12] LABS: Schistocytes None Seen
[2025-04-20 16:13] LABS: Anisocytosis 2+; Band Neutrophils Percent 0 % (0-6); Hypochromasia 1+
[2025-04-20 16:50] VITALS: BP 124/43; PULSE 56; RESP 15; O2SAT 98
--- OUTSIDE RECORDS SUMMARY | 2025-04-20 18:05 | XMS_ITS | Clinical Summary ---
Author Organization [facility] Address [address] [place] [address] Care Team Providers Care Warehouse Forklift Operator Name Role Phone Family [facility] [...] Comments Blood Pressure 129/59 05/28/2022 8:00 AM [employer] Pulse 76 05/28/2022 8:00 AM [employer] Temperature 36.7 C (98 F) 05/28/2022 8:00 AM [employer] Respiratory Rate 20 05/28/2022 8:00 AM [employer] Oxygen Saturation 96% 05/28/2022 8:00 AM [employer] Inhaled Oxygen Concentration - - Weight 111.6 kg (246 lb) 05/28/2022 6:37 AM [employer] Height 162.6 cm (5' 4) 05/13/2022 5:19 PM [employer] Body Mass Index 42.23 05/13/2022 5:19 PM [employer] Plan of Treatment Health Maintenance Due Date [...] 6:45 PM 05/13/2022 6:03 PM Care Teams Warehouse Forklift Operator Relationship Specialty Start Date End Date Alirio [facility] Maximino Rosthugh [facility] And [address] [place] [address] [address] [facility] [address] [place] [id number] PCP - General 05/14/22
--- OUTSIDE RECORDS SUMMARY | 2025-04-20 18:05 | XMS_ITS | Clinical Summary ---
Author Organization [facility] Address [address], [place] [address] Phone Care Team Providers Care Restaurant And Bar Manager Name Role Phone Rikki Amezquita MD Primary Care Provider [phone] Allergies Active Allergy Reactions Criticality Noted Date [...] BD Veo Insulin Syringe U/F 31G X 15/ 1 ML misc USE WITH INSULIN (LANTUS) [...] (#1) 2025 03/07/2022, 2020 Insurance MEDICARE MEDICARE [facility] MEDICARE [facility] MEDICARE [facility] Member Subscriber Plan / Payer (Ef fective 2024-Present) Name:Gregoria Rae Relation to Subscriber:Self Name:Gregoria Rae Subscriber ID:Not on file Payer ID:[id number] Group ID:Not on file Type:Not on file Address: [place] [id number] Care Teams Restaurant And Bar Manager Relationship Specialty Start Date End Date Rikki Amezquita MD [address] [facility] [address] [facility] [address] [place] [address] PCP - General Internal Medicine 03/07/22
--- OUTSIDE RECORDS SUMMARY | 2025-04-20 18:05 | XMS_ITS | Patient Health Record ---
Author Organization [facility] Address [address] [place] [address] Care Team Providers Care Armored Car Guard Name Role Phone Nighat Live Unavailable [phone] Reason For Referral No Information Medications Medication SIG (Take, Route, Frequency, Duration) Notes Start Date End Date Status Potassium Chloride ER 10 MEQ Tablet Extended Release Oral Active Pravastatin Sodium 10 MG Tablet Oral Active Doxycycline Hyclate 100 MG Tablet Oral Active traMADol HCl 50 MG Tablet Oral Active Furosemide 40 MG Tablet Oral Active [id number] exameth 3.5-24429-8.1 Ointment Ophthalmic Active Sertraline HCl 50 MG [...] mL) INSULIN PEN (ML) SUBCUTANEOUS *Reorder from [employer] for eRx and Interaction Alerts* Active Ventolin HFA 108 (90 Base) MCG/ACT Aerosol Solution Inhalation Active Fluconazole 150 MG Tablet Oral Active Fluticasone Propionate Diskus 50 MCG/ACT Aerosol Powder Breath Activated Inhalation *Reorder from [employer] for eRx and Interaction Alerts* Active Synthroid 200 MCG Tablet Oral Active Plan Of Treatment No Information
--- OUTSIDE RECORDS SUMMARY | 2025-04-20 18:06 | XMS_ITS | Clinical Summary ---
Author Organization Address [address] [place] [address] Care Team Providers Care Eng[employer] Name Role Phone Mona Currie MD PhD Unavailable [phone] Sammy Shepard MD Unavailable [phone] Rikki Amezquita MD Primary Care Provider Allergies Active Allergy Reactions Criticality Noted Date Comments Diphenhydramine Other (See comments) Low Restless leg Nickel Rash Medium Nifedipine Chest tightness Medium Sivhkzc-Jst-Zbz Reductase Inhibitors Muscle pain Medium Sulfa Hives [...] tablet (20 mg total) nightly Active banana iypypv-SQI-cjp er 5 gram-45 kcal/60 mL liquid in [...] times a day 180 mL 11 03/03/20 Active Additional Information Patient not taking.Reported on 07/01/2024 insulin glargine 100 unit/mL vial for injection Inject 18 Units under the skin nightly 10 mL 1 03/03/20 Active rOPINIRole (REQUIP) 0.5 mg tablet Administer per tube 1 tablet (0.5 mg total) 2 (two) times a day 60 tablet 11 03/03/20 Active epoetin bryce-epbx (RETACRIT) (3,000 unit/mL) solutionIndica [...] per tube 1 tablet (200 mcg total) reporting lead before breakfast 03/31/20 24 Active Additional Information Patient taking differently: 175 mcggastrostomy tube Daily (early AM), Reported on 07/01/2024 amiodarone (PACERONE) 200 mg tablet ADMINISTER 1 TABLET PER TUBE ONCE DAILY 30 tablet 11 07/08/19 25 Active traMADoL (ULTRAM) 50 mg tablet Take 0.5 tablets (25 mg total) by mouth every 8 (eight) hours as needed for pain 25 tablet 03/25/20 25 Active naloxone (NARCAN) 4 mg/actuation spray,non-aero israel Administer 1 spray into affected nostril(s) as needed for opioid reversal or respiratory depression Call 911. Administer a single spray in one nostril. Repeat every 3 minutes as needed if no or minimal response. 1 each 1 03/25/20 25 Active LORazepam (ATIVAN) 0.5 mg tablet Take 1 tablet (0.5 mg total) by mouth every 12 (twelve) hours as needed for anxiety 60 tablet 4 03/27/20 25 025 Active LORazepam (ATIVAN) 0.5 mg tablet Take 1 tablet (0.5 mg total) by mouth every 12 (twelve) hours as needed for anxiety 28 tablet 4 04/14/20 24 025 Discontin ued(Reord er) Active Problems Problem Noted Date Diagnosed Date Acute cystitis without hematuria 03/26/2025 Assessment & Plan (04/16/2025 9:46 AM [employer]): Treated inpatient although likely asymptomatic bacteriuria with sx favored to be metabolic encephalopathy, completed Augmentin 03/10-03/16 Monitor Oliguric at baseline Assessment & Plan (04/08/2025 4:06 PM [employer]): Treated inpatient Likely asymptomatic bacteriuria with sx favored to be metabolic encephalopathy, completed Augmentin 03/10-03/16 monitor Assessment & Plan (04/01/2025 8:55 PM [employer]): Likely asymptomatic bacteriuria with sx favored to be metabolic encephalopathy, completed Augmentin 03/10-03/16 monitor Open wound of left heel 03/25/2025 Assessment & Plan (03/25/2025 4:39 PM [employer]LE): Subacute, stabilizing Completed course of antibiotics while admitted Ulceration thought to be related to significant atherosclerosis and potential claudication for which patient has vascular follow-up with Dr. Chandler. At [facility] per family, plans to transport Wound care ADVERTISING ASSISTANT MANAGER to follow-up facility Apply skin prep with calcium alginate to ulcerated area and pressure dressing, to be changed daily Discussed with nursing staff Debility 03/25/2025 Assessment & Plan (03/25/2025 4:39 PM [employer]LE): Pt appropriately at SNF to regain strength. The patient is at risk of injury, illness and a requirement for a higher level of care without this service. The patient needs assistance from the nurses and care team for all activities of daily living including dressing, hygeine of person and toilet, safe transfer and mobility, dietary needs, medication administration, and grooming. The patient will need physical and occupational therapy to progress to a safer level of care Centrilobular emphysema 04/13/2024 Assessment & Plan (04/28/2024 2:26 PM [employer]): Stable on room air, continue trelegy, spiriva, prn duonebs Assessment & Plan (04/13/2024 12:50 PM [employer]): Stable on room air, continue trelegy, spiriva, [...] of renal disease 02/26/2024 Assessment & Plan (03/25/2025 4:39 PM [employer]): Chronic, stable Per review hemoglobin 8.7, hematocrit 29.0 per review of labs from [facility] Repeat CBC ordered Assessment & Plan (04/28/2024 2:29 PM [employer]): Hb 9-10 at baseline, stable, continue epogen with HD CVA, old, aphasia 02/26/2024 Assessment & Plan (04/01/2025 8:57 PM [employer]): Neuro condition consistent with baseline with persistent aphasia, confusion; able to self propel WC with leg, assist with some care Remains a fall risk Continue atorvastatin, maintain BP and glycemic control PT/OT/PAYROLL SUPERVISOR provides full care at home Assessment & Plan (03/05/2024 8:34 AM CDT): [...] of right foot 01/25/2024 Assessment & Plan (04/01/2025 9:04 PM [employer]CRE[employer]LE): Dressing in place with wound ADVERTISING ASSISTANT MANAGER following, non healing wound; imaging reviewed, severe atherosclerotic changes with critical stenosis at the junction of the super facial femoral and femoral arteries the patient is in the process of being evaluated as outpatient by vascular surgery. Assessment & Plan (01/25/2024 11:11 AM CDT): [...] 01/25/2024 Assessment & Plan (04/28/2024 2:25 PM [employer] SCREW [employer]LE): Tube removed, keep healing stoma clean, dry, covered. F/u with PCP Assessment & Plan (04/13/2024 12:46 PM T[employer] SCRE[employer]LE): Recently pulled out by patient, surgical site is healing, continue to clean daily and cover with dry gauze Assessment & Plan (04/09/2024 1:53 PM [employer]): Ok to keep tube out, cover area daily with dry gauze until healed, notify provider for change in condition or sx of dysphagia Assessment & Plan (04/06/2024 8:05 PM [employer]CRE[employer]LE): Now tolerating PO, likely could permanently DC soon, continue with h2o flushes for now Assessment & Plan (03/15/2024 10:55 AM T[employer] WHE[employer] SCRE[employer]LE): Continue to flush q.i.d., able to tolerate food by mouth, PAYROLL SUPERVISOR following Assessment & Plan (03/06/2024 9:49 [...] on imaging, continue nepro at 40ml/hr with PAYROLL SUPERVISOR following for repeat swallow studies Hyperkalemia 01/18/2024 Assessment & Plan (01/18/2024 7:41 AM CDT): Improved after treatment at the hospital. Continue to monitor with dialysis. 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 01/18/2024 Assessment & Plan (04/16/2025 9:46 AM [employer]CRE[employer]LE): Subacute with chronic debility, ambulatory with walker at home R sided weakness, aphasia Continue statin, maintain BP and glycemic control provides total care at home Assessment & Plan (04/08/2025 4:07 PM [employer]): Chronic debility, ambulatory with walker at baseline R sided weakness, aphasia Continue statin, maintain Bp and glycemic control Assessment & Plan (03/25/2025 4:39 PM [employer]LE): Chronic, stable Significant aphasia and right sided hemiplegia Previous to hospitalization was ambulatory with use of walker Continue Eliquis and Atorvastatin Assessment & Plan (04/28/2024 2:31 PM [employer]LE): Has some improvement with therapy but remains weak with hemiparesis and aphasia, requires full care for all ADLs, unable to reposition self and will require electric hospital bed at home, ongoing PT/OT Contonie asa, statin, eliquis Heart healthy diet with exercise as tolerated Maintain BP and glycemic control F/u PCP Assessment & Plan (04/13/2024 12:49 PM [employer]CRE[employer]LE): Deficits improving have seem to stabilize now ambulatory with walker and gait belt, tolerating PO, speech garbled, continue statin, eliquis, heart healthy diet with exercise as tolerated; may need to transfer to LTC vs home with home health and family to care Assessment & Plan (04/09/2024 1:53 PM T[employer]PER [employer] SCRE[employer]LE): Deficits improving, now ambulatory with walker and gait belt, tolerating PO, speech remains garbled, continue statin, eliquis, heart healthy diet with exercise as tolerated Assessment & Plan (04/06/2024 8:08 PM T[employer] WHE[employer]CRE[employer]LE): Improving with therapies, now ambulatory and tolerating PO, speech remains garbled, continue statin, eliquis, heart healthy diet with exercise as tolerated Assessment & Plan (03/31/2024 2:26 PM [employer]PER [employer] WHE[employer] SCRE[employer]LE): Speech and mobility improving, now ambulatory with walker and gait belt. Continue PT/OT/PAYROLL SUPERVISOR, continue statin and Eliquis, maintain BP and glycemic control Assessment & Plan (03/20/2024 8:07 PM T[employer]CRE[employer]LE): Improving with therapy, continue statin and Eliquis, maintain BP and glycemic control. Continue PT OT, PAYROLL SUPERVISOR, remains a fall risk F/u with neurology as scheduled, plans to DC home with Assessment & Plan (03/15/2024 10:51 AM T[employer]PER [employer]CRE[employer]LE): Improving with therapy, continue statin and Eliquis, maintain BP and glycemic control. Continue PT OT, PAYROLL SUPERVISOR, remains a fall risk Assessment & Plan (03/06/2024 9:49 PM CDT): Stable, improving with therapies, continue statin, eliquis, PT/OT/PAYROLL SUPERVISOR, supportive care, continue to advance diet as tolerated Assessment & Plan (02/27/2024 3:02 PM CDT): Stable, improving with therapies, continue statin, eliquis, PT/OT/PAYROLL SUPERVISOR, supportive care with plans to DC home following rehab stay Assessment & Plan (02/20/2024 1:56 PM CDT): Deficits improving with therapy, continue statin and eliquis, PT/OT/PAYROLL SUPERVISOR with video swallow scheduled Continue bID zyprexa 2.5mg for now, may tolerate GDR at subsequent visit Assessment & Plan (02/19/2024 10:51 AM CDT): Improving with therapy, no recurrent episodes of agitation since starting BID zyprexa, continue statin and eliquis, PT/OT/PAYROLL SUPERVISOR with video swallow scheduled Assessment & Plan (02/11/2024 1:32 PM CDT): Improving, continue statin and eliquis, PT/OT. PAYROLL SUPERVISOR following for advancement of diet, will schedule Zyprexa 2.5mg HS rather than In am, conitnue supportive care, fall precautions Assessment & Plan (02/08/2024 3:56 PM CDT): Mobility and speech improving with intermittent agitation, fall risk, zyprexa increased to 2.5mg daily as unable to be redirected at times. Continue statin, eliquis, PT/TO/PAYROLL SUPERVISOR, TF nataliyaro per RD recs Assessment & Plan (02/03/2024 8:55 AM CDT): Mobility is improving, remains aphasic, able to follow simple commands and has spontaneous movements of all extremities; continue statin, eliquis, glycemic control, BP management, PT/OT/PAYROLL SUPERVISOR Assessment & Plan (02/01/2024 9:33 AM CDT): Mobility is improving, intermittent anxiety, will need to monitor and provide supportive care, attempt to avoid benzos or antipsychotics although may need prn low dose meds due to fall risk and inability to be redirected; continue statin, eliquis, glycemic control, BP management, PT/OT/PAYROLL SUPERVISOR Assessment & Plan (01/28/2024 2:35 PM [...] & Plan (01/25/2024 12:46 PM CDT): Ongoing PT/OT/PAYROLL SUPERVISOR with generalized weakness, aphasia and R sided facial droop, follows some simple commands, continue statin and eliquis; monitor for fall risk given intermittent agitation; no new meds today but may need PRN due to fall risk Assessment & Plan (01/25/2024 11:13 AM CDT): Mobility is improving now at times getting out of bed without help, continue to monitor for fall risk, PT/OT/PAYROLL SUPERVISOR; continue statin and eliquis Assessment & Plan (01/18/2024 5:52 PM CDT): Ongoing R sided weakness, R sided facial droop, aphasia; reports some improvement in spontaneous movement and mumbling. Continue asa, statin, eliquis; of note has documented statin intolerance, will need to find out specifics Continue PT/OT PAYROLL SUPERVISOR , tube feeds for now with plans for repeat video swallow Type 2 diabetes mellitus with renal complication 01/18/2024 Assessment & Plan (04/16/2025 9:45 AM TAPPER BALANCE WHEEL SCREW HOLE): Stable on lantus 18 units HS Glucose 124 this am Continue accuchecks with dm diet Assessment & Plan (04/01/2025 9:09 PM TAPPER BALANCE WHEEL SCREW HOLE): DC on lantus 18 units daily; order accuchecks AM and HS Encourage DM diet Assessment & Plan (03/25/2025 4:39 PM T[employer]PER [employer] WHE[employer] SCREW HOLE): Chronic, stable Continue insulin glargine 18 units subcutaneously at bedtime Accu-Cheks daily Assessment & Plan (04/09/2024 1:54 PM T[employer]PER [employer] WHE[employer] SCREW HOLE): Glucose logs reviewed and stable, continue HS lantus and mealtime SSI, will try to DC SSI prior to DC home Assessment & Plan (04/06/2024 8:06 PM TAPPER BALANCE WHEEL SCREW HOLE): Stable, continue HS lantus and mealtime SSI, [...] risk for amiodarone toxicity with terminal gauger u se 10/06/2022 Chronic anticoagulation 10/06/2022 Paroxysmal atrial fibrillation 10/06/2022 Assessment & Plan (04/16/2025 9:45 AM TAPPER BALANCE WHEEL SCREW HOLE): stable, rate controlled on exam Continue Metoprolol, Amiodarone, Eliquis F/u cardiology Dr Gillette Remains a fall risk Assessment & Plan (04/08/2025 4:08 PM TAPPER BALANCE WHEEL SCREW HOLE): Chronic, stable, rate controlled on exam Continue Metoprolol, Amiodarone, Eliquis F/u cardiology Dr Gillette Assessment & Plan (04/01/2025 9:11 PM TAPPER BALANCE WHEEL SCREW HOLE): Chronic, stable, rate controlled on exam Continue Metoprolol, Amiodarone, Eliquis F/u cardiology Dr Gillette Assessment & Plan (03/25/2025 4:39 PM TAPPER BALANCE WHEEL SCREW HOLE): Chronic, stable Continue Metoprolol, Amiodarone, Eliquis F/u cardiology Dr Gillette Assessment & Plan (04/28/2024 2:28 PM TAPPER BALANCE WHEEL SCREW HOLE): Rate controlled, continue metoprolol, amiodarone, eliquis F/u cardiology dr wiley Assessment & Plan (04/13/2024 12:46 PM TAPPER BALANCE WHEEL SCREW HOLE): Rate controlled on exam; continue metoprolol, amiodarone, Eliquis ; no recent falls Assessment & Plan (04/06/2024 8:06 PM TAPPER BALANCE WHEEL SCREW HOLE): Rate controlled; continue metoprolol, amiodarone, Eliquis Assessment & Plan (03/31/2024 2:29 PM TAPPER BALANCE WHEEL SCREW HOLE): Rate controlled on metoprolol, amiodarone; continue b.i.d. Eliquis Assessment & Plan (03/20/2024 8:09 PM TAPPER BALANCE WHEEL SCREW HOLE): Stable on metoprolol, amiodarone and eliquis, conitnue [...] ESRD on hemodialysis 10/06/2022 Assessment & Plan (04/16/2025 9:45 AM TAPPER BALANCE WHE[employer] SCREW HOLE): Stable, On chronic HD prior to CVA Continue treatments at [facility] Continue calcium acetate Encourage renal diet with supplements Weekly labs per HD Assessment & Plan (04/08/2025 4:05 PM TAPPER BALANCE WHE[employer] SCREW HOLE): Stable, On chronic HD prior to CVA Continue treatments at [facility] Continue calcium acetate Continue Renal diet, offer supplements Weekly labs per HD Assessment & Plan (04/01/2025 8:58 PM TAPPER BALANCE WHE[employer] SCREW HOLE): On chronic HD prior to CVA Continue treatments at [facility] Continue calcium acetate Renal diet, offer supplements Weekly labs per HD Assessment & Plan (03/25/2025 4:39 PM T[employer]PER [employer] WHE[employer] SCREW HOLE): Chronic, stable Continue treatments Sunday/Sunday/Sunday Nephrology to follow while at facility Assessment & Plan (04/28/2024 2:26 PM T[employer]PER [employer] WHE[employer] SCREW HOLE): Continue treatments outpatient MWF, epogen on HD days, f/u with nephrology Assessment & Plan (04/09/2024 1:54 PM T[employer]PER [employer] WHE[employer] SCREW HOLE): Tolerating HD MWF, at times using p.r.n. lorazepam with HD treatment, anxiety during access. Monitor electrolytes and weight Continue Epogen Assessment & Plan (04/06/2024 8:08 PM TAPPER BALANCE WHEEL SCREW HOLE): Continue HD MWF, p.r.n. lorazepam with HD treatment. Monitor electrolytes and weight Continue Epogen Assessment & Plan (03/31/2024 2:26 PM TAPPER BALANCE WHEEL SCREW HOLE): Continue HD MWF, continues to use p.r.n. lorazepam with HD treatments; daughter states this is helping,. Monitor electrolytes and weight Continue Epogen Assessment & Plan (03/20/2024 8:08 PM TAPPER BALANCE WHEEL SCREW HOLE): Continue HD MWF, continue to monitor electrolytes and weight, may use p.r.n. lorazepam with HD treatments; no reports of recent agitation with treatments Assessment & Plan (03/15/2024 10:52 AM TAPPER BALANCE WHEEL SCREW HOLE): Continue HD MWF, continue to monitor electrolytes [...] 3:59 PM CDT): Receiving treatments MWF at [facility], intermittent anxiety, increase zyprexa to [...] 5:55 PM CDT): Continue treatments MWF at [facility], TID calcium acetate, nephrology following, nepro tube feeds ordered, starting on jevity on admission due to no nepro available Assessment & Plan (01/18/2024 7:41 AM CDT): Continue with dialysis 3 times a week. Continue calcium acetate. Labs with dialysis. Preoperative cardiovascular examination 09/20/19 22 Chronic heart failure with preserved ejection fr action 07/02/2019 Assessment & Plan (03/25/2025 4:39 PM TAPPER BALANCE WHEEL SCREW HOLE): Chronic, stable Euvolemic on exam Continue metoprolol succinate 50 mg 1 capsule by mouth once daily Assessment & Plan (04/28/2024 2:26 PM TAPPER BALANCE WHEEL SCREW HOLE): Stable, continue metoprolol, monitor weights with HD Assessment & Plan (03/20/2024 8:08 PM TAPPER BALANCE WHEEL SCREW HOLE): Stable on exam, continue metoprolol, monitor I/O, [...] 02/04 Assessment & Plan (04/06/2024 8:06 PM TAPPER BALANCE WHEEL SCREW HOLE): Weight is stable since rehab admission, continue exercise as tolerated, RD following Assessment & Plan (03/20/2024 8:09 PM TAPPER BALANCE WHEEL SCREW HOLE): Mobility is improving, recently stopped TF and [...] (congestive heart failure) 02/04 Assessment & Plan (04/08/2025 4:08 PM TAPPER BALANCE WHEEL SCREW HOLE): Stable, euvolemic appearing Continue isosorbide, hydralazine, metoprolol for BP goal <140/<90 HD MWF Assessment & Plan (04/01/2025 9:10 PM TAPPER BALANCE WHEEL SCREW HOLE): Continue isosorbide, hydralazine, metoprolol for BP goal <140/<90 Assessment & Plan (04/13/2024 12:48 PM TAPPER BALANCE WHEEL SCREW HOLE): Stable/compensated, continue HD treatments, weekly weights, metoprolol, statin amio, eliquis Assessment & Plan (03/20/2024 8:08 PM TAPPER BALANCE WHEEL SCREW HOLE): Stable on metoprolol and amiodarone, continue HD [...] a associated with type 2 diabetes mellitus ([facility]) 05/20/2013 Overview (08/11/2016): DMII WO CMP UNCNTRLD Assessment & Plan (04/08/2025 4:05 PM TAPPER BALANCE WHEEL SCREW HOLE): Well controlled on lantus 18 units hs with mealtime SSI continue accuchecks ac and hs Encourage DM Diet No recent A1c for review Assessment & Plan (04/13/2024 12:48 PM TAPPER BALANCE WHEEL SCREW HOLE): Well controlled on lantus 18 units hs with mealtime SSI, continue accuchecks ac and hs Assessment & Plan (03/15/2024 10:54 AM TAPPER BALANCE WHEEL SCREW HOLE): Glucose logs reviewed continue lantus 18 units [...] Overview (08/11/2016): HYPERTENSION NOS Assessment & Plan (03/25/2025 4:39 PM TAPPER BALANCE WHEEL SCREW HOLE): Chronic, not at goal Patient with elevated systolics, will continue to monitor Continue hydralazine 25 mg by mouth t.i.d., Imdur 30 mg by mouth daily, and metoprolol Plan to increase hydralazine doses to 50 mg t.i.d. if needed Assessment & Plan (04/28/2024 2:28 PM TAPPER BALANCE WHEEL SCREW HOLE): Continue Lantus 18 units HS with mealtime SSI and daughter will assist with med administration Bp stable on metoprolol, monitor for BP goal ,140/<90 Continue accuchecks ac and hs Assessment & Plan (03/31/2024 2:28 PM TAPPER BALANCE WHEEL SCREW HOLE): Continue Lantus 18 units HS with mealtime SSI, glucose 236 this a.m., evening glucose 170, continue diabetic diet. BP stable on metoprolol Assessment & Plan (03/15/2024 10:53 AM TAPPER BALANCE WHEEL SCREW HOLE): BP stable on metoprolol 50mg daily, continue [...] Overview (08/11/2016): HYPOTHYROIDISM NOS Assessment & Plan (03/25/2025 4:39 PM TAPPER BALANCE WHEEL SCREW HOLE): Chronic, stable Continue levothyroxine 200 mcg 1 tablet by mouth daily Assessment & Plan (04/13/2024 12:51 PM TAPPER BALANCE WHEEL SCREW HOLE): Subclinical hypothyroidism with TSH trending up to 92, encourage appropriate administration of medication in early a.m. on empty stomach, Synthroid increased to 200 mcg daily at previous visit with plan to repeat ths in 6 weeks, T3 and T4 normal Assessment & Plan (03/31/2024 2:30 PM TAPPER BALANCE WHEEL SCREW HOLE): Subclinical hypothyroidism with TSH trending up to 92, encourage appropriate administration of medication in early a.m. on empty stomach, Synthroid increased to 200 mcg daily Assessment & Plan (03/20/2024 8:09 PM TAPPER BALANCE WHEEL SCREW HOLE): Inpatient workup with Tsh elevated with normal t4, ensure medication administration appropriate early am on empty stomach; repeat TSH this week Assessment & Plan (03/15/2024 10:54 AM TAPPER BALANCE WHEEL SCREW HOLE): Inpatient workup with Tsh elevated with normal [...] on room air to complete PO abx, PAYROLL SUPERVISOR to follow, DC on prn duonebs, likely could DC Urinary tract infection without hematuria 05/11/2021 02/01/2024 Hyperlipidemia 04/22/2012 09/19/2021 Overview (08/10/2016): HYPERLIPIDEMIA NEC/NOS Encounters Date Type Department Care Team Description 04/15/2025 Telephone [facility] Post Acute Care [id number] [id number] Jenny Montano MA 04/10/2025 4:19 PM TAPPER BALANCE WHEEL SCREW HOLE - 04/10/2025 7:58 PM TAPPER BALANCE WHEEL SCREW HOLE Emergency [address] [address] Gwen Bonilla MD 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 (Primary Dx) Discharge Disposition: Discharge to home or self care 04/09/2025 NH/SNF Visit [facility] Post Acute Care [address] [address] Maggi Murillo NP 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 (HCC) (Primary Dx); Acute cystitis without hematuria; ESRD on hemodialysis (HCC); Paroxysmal atrial fibrillation (HCC); Type 2 diabetes mellitus with chronic kidney disease on chronic dialysis, with long-term current use of insulin (HCC); Wound of right foot 04/01/2025 NH/SNF Visit [facility] Post [address] [id number] Maggi Murillo NP 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 (HCC) (Primary Dx); ESRD on hemodialysis (HCC); Acute cystitis without hematuria; Mixed diabetic hyperlipidemia associated with type 2 diabetes mellitus (CMS/HCC) (HCC); Hypertensive heart disease with chronic diastolic congestive heart failure (HCC); Paroxysmal atrial fibrillation (HCC) 03/26/2025 NH/SNF Visit [facility] Post Acute [address] [phone] Maggi Murillo NP Acute cystitis without hematuria (Primary Dx); CVA, old, aphasia; ESRD on hemodialysis (HCC); Wound of right foot; Type 2 diabetes mellitus with chronic kidney disease on chronic dialysis, with long-term current use of insulin (HCC); Hypertensive heart disease with chronic diastolic congestive heart failure (HCC); Paroxysmal atrial fibrillation (HCC) 03/25/2025 NH/SNF Visit [facility] Post [address] [id number] Alejandra Naranjo MD 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 (HCC) (Primary Dx); Anemia of renal disease; Chronic heart failure with preserved ejection fraction; ESRD on hemodialysis (HCC); Hypertension associated with diabetes (HCC); Acquired hypothyroidism; Type 2 diabetes mellitus with chronic kidney disease on chronic dialysis, with long-term current use of insulin (HCC); Open wound of left heel, subsequent encounter; Debility; Paroxysmal atrial fibrillation (HCC) from Last 3 Months Immunizations Immunization Administration Dates Next Due Influenza, Unspecified 02/04/2021 Surgical History Surgery Date Site/Laterality Comments CHOLECYSTECTOMY Cholecystectomy ENTERIC TUBE INJECTION 01/19/2024 N/A Medical History Medical History Date Comments Hx Other Medical 2005 Thyroidectomy Asthma Asthma Type 2 diabetes mellitus [...] drink = 0.6 oz pur e alcohol) [facility] Utilities Answer Date Recorded In [...] often do you attend chur ch or scientology services? Never 02/26/2024 Do you belong to [...] place to sleep or slept in a intermediate (including now)? No 05/13/2021 Housing Stability Vital Sign Answer Yonathan e Recorded In the last 12 months, was t here a time when you were not able to pay the mortgage or rent on time? No 02/26/2024 In the past 12 months, how m any times have you moved where you were living? 0 02/26/2024 At any time in the past 12 m [facility], were you homeless or living in a intermediate (including now)? No 02/26/2024 Personal Safety Answer Date Recorded Have you ever been in or are you currently in a harmful physical or emotional relationship or is someone making you feel afraid or unsafe? Patient unable to answer 04/10/2025 Comments No Sex and Gender Information Value Date Recorded Sex Assigned at Not on file Legal Sex Female 10:22 AM [employer] Gender Identity Not on file Sexual Orientation Not on file Last Filed Vital Signs Vital Sign Reading Time Taken Comments Blood Pressure 189/79 04/10/2025 6:45 PM [employer] Pulse 69 04/10/2025 6:45 PM [employer] Temperature 36.2 C (97.2 F) 04/10/2025 4:20 PM [employer] Respiratory Rate 18 04/10/2025 6:45 PM [employer] Oxygen Saturation 95% 04/10/2025 6:45 PM [employer] Inhaled Oxygen Concentration - - Weight 87.6 kg (193 lb 2 oz) 04/10/2025 4:30 PM [employer] Height 162.6 cm (5' 4) 07/01/2024 9:38 AM [employer] Body Mass Index 33.15 07/01/2024 9:38 AM [employer] Plan of Treatment Health Maintenance Due Date Last Done Comments Albumin Creatinine Ratio, Urine 1950 Osteoporosis Screening-Bone Density Scan 1950 Dilated Eye Exam 1950 Foot Exam 1950 Zoster Vaccine (1 of 2) 1998 Well Visit 65+ 2013 Pneumococcal vaccine 65+ (2 of 2 - PPSV23, PCV20, or PCV21) 03/02/2016 01/06/2016 Depression Screening 05/10/2022 05/10/2021 Hemoglobin A1C 08/27/2024 02/27/2024, 09/2021, 10/25/2018, Additional history exists Influenza Vaccine (#1) 2025 , 02/04/2021, 02/26/2020, Additional history exists Fall Risk Assessment 03/03/2025 03/03/2024, 09/20/19 22 Lipid Panel 07/01/2025 07/01/2024, 0606/2022, 05/11/2021, Additional history exists eGFR 04/10/2026 04/10/2025, 02/05, 02/29/2024, Additional history exists DTaP/Tdap/Td Vaccine (2 - Td or Tdap) 03/12/2032 03/12/2022 Hepatitis C Screening Completed 05/08/2022 Hepatitis B Screening Completed 03/03/2024 , 01/23/2023, 09/30/2022, Additional history exists Procedures Procedure Name Priority Date/Time Associated Diagnosis Comments EGFR STAT 04/10/2025 4:43 PM [employer] DIFFERENTIAL AUTO STAT 04/10/2025 4:4 3 PM [employer] APTT STAT 04/10/2025 4:43 PM [employer] PROTIME-INR Routine 04/10/2025 4:43 PM [employer] COMPREHENSIVE METABOLIC PANEL STAT 04/10/2025 4:43 PM [employer] CBC WITH AUTO DIFFERENTIAL STAT 04/10/2025 4:43 PM [employer] POCT LIPID PANEL Routine 07/01/2024 9:57 AM [employer] Need for lipid screening HEMOGLOBIN A1C Routine 02/27/2024 5:59 AM CDT HEPATITIS PANEL, ACUTE STAT 3:59 PM [employer] from Last 3 Months or Most Recently Relevant to Health Maintenance Results * (ABNORMAL) eGFR (04/10/2025 4:43 PM [employer]) eGFR 11(L) >=60 mL/min/1. 73 m2 Comment: Interpretive Data [...] of Race in Diagnosing Kidney Disease, JASN 202). The CKD-EPI equation should not be used for patients with unstable renal function and has not been validated in children and those over 70. Current interpretive data was last reviewed 2021. Blood 04/10/2025 4:43 PM [employer] 04/10/2025 4:46 PM [employer] us Gwen Bonilla MD LAB BLOOD ORDERABLES F inal Result [facility] [address] [place] [address] * (ABNORMAL) Differential, auto (04/10/2025 4:43 PM [employer]) Neutrophil abs 5.77 1.50 - 6.50 K/cumm Imm gran abs 0.01 0.00 - 0.10 K/cumm [facility] Lymphocyte abs 1.03 0.80 - 3.30 K/cumm [facility] Monocyte abs 0.78 0.20 - 0.80 K/cumm [facility] Eosinophil abs 0.51(H) 0.00 - 0.50 K/cumm [facility] Basophil abs 0.03 0.00 - 0.10 K/cumm [facility] Neutrophil pct 70.9 % [facility] Comment: Interpretive Data Percent cell count reference ranges are not reported, since discordance with absolute values may lead to misinterpretation of CBC data. Current Interpretive Data was last revised on 2017. Imm gran pct 0.1 % [facility] Comment: Interpretive Data Percent cell count reference ranges are not reported, since discordance with absolute values may lead to misinterpretation of CBC data. Current Interpretive Data was last revised on 2017. Lymphocyte pct 12.7 % [facility] Comment: Interpretive Data Percent cell count reference ranges are not reported, since discordance with absolute values may lead to misinterpretation of CBC data. Current Interpretive Data was last revised on 2017. Monocyte pct 9.6 % [facility] Comment: Interpretive Data Percent cell count reference ranges are not reported, since discordance with absolute values may lead to misinterpretation of CBC data. Current Interpretive Data was last revised on 2017. Eosinophil pct 6.3 % [facility] Comment: Interpretive Data Percent cell count reference ranges are not reported, since discordance with absolute values may lead to misinterpretation of CBC data. Current Interpretive Data was last revised on 2017. Basophil pct 0.4 % [facility] Comment: Interpretive Data Percent cell count reference ranges are not reported, since discordance with absolute values may lead to misinterpretation of CBC data. Current Interpretive Data was last revised on 2017. Blood 04/10/2025 4:43 PM [employer] 04/10/2025 4:46 PM [employer] Gwen Bonilla MD LAB BLOOD ORDERABLES F inal Result Performing Organization Address [facility] Co de Phone Number [address] [address] * (ABNORMAL) CBC with auto differential (04/10/2025 4:43 PM [employer]) Pathologist [facility] WBC 8.13 3.80 - 9.90 K/cumm Hgb 8.0(L) 11.9 - 15.5 g/dL [facility] Hct 26.6(L) 35.6 - 45.5 % [facility] Plt 285 150 - 400 K/cumm [facility] MPV 9.6 9.1 - 12.3 fL [facility] RBC 3.05(L) 3.90 - 5.20 M/cumm [facility] MCV 87.2 81.3 - 96.4 fL [facility] MCH 26.2(L) 27.1 - 33.3 pg [facility] MCHC 30.1(L) 32.3 - 35.7 g/dL [facility] RDW CV 17.4(H) 11.1 - 14.9 % [facility] RDW SD 55.4(H) 35.7 - 48.1 fL [facility] NRBC abs 0.00 0.00 - 0.01 K/cumm [facility] Blood 04/10/2025 4:43 PM [employer] 04/10/2025 4:46 PM [employer] Gwen Bonilla MD LAB BLOOD ORDERABLES F inal Result Performing Organization Address [facility] Co de Phone Number [address] [place] [address] * (ABNORMAL) aPTT (04/10/2025 4:43 PM [employer]) [facility] aPTT 42(H) 22 - 37 sec Comment: Interpretive data aPTT test has not been evaluated for monitoring heparin therapy. The anti-Xa is the preferred test. Current interpretive data was last revised on 2019. Blood 04/10/2025 4:43 PM [employer] 04/10/2025 4:46 PM [employer] Gwen Bonilla MD LAB BLOOD ORDERABLES F inal Result Performing Organization Address [facility] de Phone Number [address] [address] * (ABNORMAL) Protime-INR (04/10/2025 4:43 PM [employer]) Pathologist [facility] PT 18.70(H) 12.00 - 14.60 sec INR 1.56(H) 0.90 - 1.20 [facility] Comment: Interpretive data Oral anticoagulant therapeutic ranges: Venous thromboembolism prophylaxis or treatment: 2.0-3.0 CARDIOLOGY Standard range: 2.0-3.0 High-intensity range: 2.5-3.5 Refer to indication-specific guidelines for appropriate target ranges for prosthetic heart valve replacement. Current interpretive data was last revised on 2019. Blood 04/10/2025 4:43 PM [employer] 04/10/2025 4:46 PM [employer] Gwen Bonilla MD LAB BLOOD ORDERABLES F inal Result Performing Organization Address [facility] de Phone Number [address] [address] * (ABNORMAL) Comprehensive metabolic panel (04/10/2025 4:43 PM [employer]) Pathologist [facility] Sodium 137 135 - 145 mmol/L Potassium, pl 3.7 3.3 - 4.9 mmol/L [facility] Comment:Hemolyzed; Potassium value may be falsely elevated by as much as 1.0 mmol/L. Suggest redraw and reanalysis. Chloride 96(L) 97 - 110 mmol/L [facility] CO2 33(H) 22 - 32 mmol/L [facility] Anion gap 8 2 - 15 mmol/L [facility] BUN 25 6 - 25 mg/dL [facility] Creatinine 3.95(H) 0.60 - 1.10 mg/dL [facility] Glucose 132 70 - 199 mg/dL [facility] Comment: Interpretive Data Fasting glucose >/= 126 mg/dl is diagnostic for diabetes. Fasting is defined as no caloric intake for at least 8 hours. Fasting glucose between 100 mg/dl to 125 mg/dl is diagnostic of prediabetes. In a patient with classic symptoms of hyperglycemia or hyperglycemic crisis, a random glucose >/= 200 mg/dl is diagnostic for diabetes. In the absence of unequivocal hyperglycemia, results should be confirmed by repeat testing. The classification and Diagnosis of Diabetes Diabetes Care 202; 46: S19-S40. Current interpretive data was last revised 2022. Calcium 8.8 8.5 - 10.3 mg/dL [facility] Bilirubin, total 0.6 0.1 - 1.2 mg/dL [facility] Protein, pl 7.6 6.5 - 8.5 g/dL [facility] Albumin 3.5 3.5 - 5.0 g/dL [facility] Alk phos 122 40 - 130 Units/L [facility] ALT 13 7 - 45 Units/L [facility] AST 25 10 - 45 Units/L [facility] Comment:Hemolyzed; result ma y be falsely elevated Blood 04/10/2025 4:43 PM [employer] 04/10/2025 4:46 PM [employer] Gwen Bonilla MD LAB BLOOD ORDERABLES F inal Result [facility] [address] [place] [address] * POCT lipid panel (07/01/2024 9:57 AM [employer]) Cholesterol, POC 138 mg/dL Comment:GLU = 176 HDL, POC 17 mg/dL Triglycerides, POC 168 mg/dL LDL Cholesterol POC 88 mg/dL Chol/HDL Ratio, POC 5.2 Non-HDL Cholesterol, POC 121 mg/dL Cholesterol Total, POC 138 mg/dL Capillary blood 07/01/2024 9 :57 AM [employer] Uriel Gillette MD POINT OF CARE TEST ORDER CANDIE Final Result * (ABNORMAL) Hemoglobin A1c (02/27/2024 5:59 AM CDT) Pathologist [facility] Hgb A1C 7.5(H) 4.0 - 5.6 % Estimated Average Glucose 169 mg/dL [facility] Comment: The ADA recommends reporting an estimated Average Glucose (eAG) with all Hemoglobin A1c results using the equation derived from a study of 507 normal and diabetic adults. Minority populations were underrepresented and children were not included. (Diabetes Care 31:1265-6033, 2008). The eAG is not equivalent to a fasting glucose. Blood 02/27/2024 5:59 AM CDT 02/27/2024 7:11 AM CDT Asif Delgadillo MD LAB BLOOD ORDERABLES Final Re sult [facility] [address] [place] [address] * Hepatitis panel, acute (05/08/2022 3:59 PM [employer]) [facility] Hep A IgM Nonreactive Nonreactive [facility] Comment: Interpretive Data: If Hep A IgM Ab is reported as Equivocal, a new sample should be drawn in two weeks for testing. Current interpretive data was last revised on 19. Hep B core IgM Nonreactive Nonreactive [facility] Comment: Interpretive Data If HepB Core IgM Ab is reported as Equivocal, a new sample should be drawn in two weeks for testing. Current interpretive data was last revised on 19. Hep C Ab Nonreactive Nonreactive [facility] Comment: Interpretive Data Nonreactive: [...] revised on 2019. HepBsAg Nonreactive Nonreactive [facility] Blood 05/08/2022 3:59 PM [employer] 05/08/2022 3:59 PM [employer] Mellissa Garcia DO LAB MICROBIOLOGY - GENERAL ORD ERABLES Final Result [facility] [address] [place] [address] from Last 3 Months or Most Recently Relevant to Health Maintenance Insurance MEDICARE [facility] MEDICARE [facility] MEDICARE SUPPLEMENT Advance Directives For more information, please contact: [phone] Documents on File Type Date Recorded 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 [employer] 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 ADVANCE DIRECTIVE 03/04/2024 10:[address] - Phys Order for PT Preferences * Full Code (Latest Code Status on File) Date Activated Date Inactivated Comments 02/25/2024 5:55 PM 03/03/2024 4:42 PM * Full Code Date Activated Date Inactivated Comments 05/11/2021 3:52 AM 05/14/2021 8:52 PM Care Teams Eng[employer] Relationship Specialty Start Date End Date Rikki Amezquita MD [address] [facility] [address] [place] [address] PCP - General Family Medicine 07/01/24 Mona Currie MD PhD Medical Oncologist/Global Implementation Manager Medical Oncology 01/07/21 Sammy Shepard MD Consulting Physician Nephrology 05/14/21
--- OUTSIDE RECORDS SUMMARY | 2025-04-20 18:06 | XMS_ITS | Clinical Summary ---
Author Organization [facility] Address [address] [place] [address] Care Team Providers Care Scheme Technician Name Role Phone Rikki Amezquita MD Primary Care Provider [phone] Source Comments [facility],non-owned Affiliates and Associated Physician Practices is amultiple site organization consisting of ambulatory clinics and hospital sitesin [place], [place], [place] and [place]. This disclosure is being madepursuant to the Care Everywhere program and may not contain all information available regarding this patient. Last updated 18.[facility] Allergies Active Allergy Reactions Criticality Noted Date [...] 1 (one) tablet by mouth at bedtime 07/12/19 23 Active Lantus SoloStar pen 28 (twenty eight) Units at bedtime 05/26/19 23 Active rOPINIRole (Requip) 0.25 MG tablet Take 1 (one) tablet by mouth 2 times daily 06/05/19 23 Active metoprolol succinate XL 24hr (Toprol XL) 50 MG tablet Take 1 (one) tablet by mouth every morning 07/12/19 23 Active calcium acetate (Phoslo) 667 MG capsule Take 1 (one) capsule by mouth 2 times daily 07/12/19 23 Active insulin aspart (NovoLOG PENFILL) cartridge Inject subcutaneously as directed SS with meals Active montelukast (Singulair) 10 MG tablet 1 tablet Orally Once a day Active traMADol (Ultram) 50 MG tablet 1 tablet as needed Orally Once a day Active atorvastatin (Lipitor) 20 MG tablet 1 (one) tablet by Enteral route at bedtime Active fluticasone propionate (Flonase) 50 MCG/ACT nasal spray [place] 2 (two) sprays into the nose once daily Active traZODone (Desyrel) 50 MG tablet Take 0.5 (one-half) tablet by mouth 2 times daily 03/03/20 24 Active Symbicort 160-4.5 MCG/ACT inhaler Inhale 1 (one) puff by mouth 2 times daily 10/16/19 25 Active hydrALAZINE (Apresoline) 25 MG tablet Take 1 (one) tablet by mouth 3 times daily 10/20/19 25 Active cholestyramine light (Questran Light; Prevalite) 4 g packet Take 4 (four) g by mouth 2 times daily 02/05/20 25 Active escitalopram (Lexapro) 5 MG tablet Take 1 (one) tablet by mouth once daily 02/11/20 25 Active isosorbide mononitrate CR 24hr (Imdur) 30 MG tablet Take 1 (one) tablet by mouth once daily 03/02/20 25 Active Eliquis 2.5 MG tablet Take 1 (one) tablet by mouth 2 times daily 12/30/19 25 Active levothyroxine (Synthroid) 175 MCG tablet Take 1 (one) tablet by mouth once daily 01/29/20 25 Active Eliquis 5 MG tablet Take 1 (one) tablet by mouth 2 times daily 07/03/19 23 025 Discontin ued(List Clean-Up) levothyroxine (Synthroid) 200 MCG tablet Take 1 (one) tablet by mouth daily before breakfast 05/26/19 23 025 Discontin ued(List Clean-Up) albuterol HFA (Proventil; Ventolin; Proair) 108 (90 Base) MCG/ACT inhaler Inhale 1 (one) puff by mouth 12/12/19 Discontin ued(List Clean-Up) furosemide (Lasix) 80 MG tablet Take 1 (one) tablet by mouth once daily 10/13/19 Discontin ued(List Clean-Up) Spiriva HandiHaler 18 MCG inhalation capsule 10/13/19 Discontin ued(List Clean-Up) albuterol-iprat ropium (Duo-Neb) 0.5-2.5 (3) MG/3ML nebulizer solution USE 3 ML IN NEBULIZER EVERY 4 HOURS NEEDED FOR SHORTNESS OF BREATH FOR WHEEZING 11/15/19 Discontin ued(List Clean-Up) acetaminophen (Tylenol) 500 MG tablet Take 1 (one) tablet by mouth every 6 hours as needed for Fever or Pain Maximum allowable Acetaminophen amount = 4 Grams (4000 mg) / 24 hours. 0 11/28/19 Discontin ued(List Clean-Up) ALPRAZolam (Xanax) 0.25 MG tablet 12/08/19 Discontin ued(List Clean-Up) gabapentin (Neurontin) 600 MG tablet Take 1 (one) tablet by mouth at bedtime 02/26/20 Discontin ued(List Clean-Up) gabapentin (Neurontin) 600 MG tablet Take 1 (one) tablet by mouth once daily In addition to the Gabapentin 300 mg in am Discontin ued(List Clean-Up) pantoprazole EC (Protonix) 40 MG tablet 1 tablet Orally Once a day Discontin ued(List Clean-Up) gabapentin (Neurontin) 300 MG capsule Take 1 (one) capsule by mouth once daily In addition to the Gabapentin 600 mg in am Discontin ued(List Clean-Up) LORazepam (Ativan) 0.5 MG tablet 1 (one) tablet by Enteral route every 8 hours as needed Discontin ued(List Clean-Up) nystatin (Mycostatin) 027494 UNIT/GM powder Apply 1 Application to affected area 2 times daily Discontin ued(List Clean-Up) Trelegy Ellipta 200-62.5-25 MCG/ACT inhaler Inhale 1 (one) puff by mouth once daily 025 Discontin ued(List Clean-Up) Active Problems Problem Noted Date Diagnosed Date PVD (peripheral vascular disease) 03/31/2025 Encounter regarding vascular access for dialysis for end-stage renal disease 01/22/2023 ESRD (end stage renal disease) 07/24/2022 Encounters Date Type Department Care Team Description 04/01/2025 Orders Only [facility] [address] [place] [address], [address] [place] [address] Paul Chandler MD Claudication of lower extremity ; Claudication of left upper extremity due to atherosclerosis 03/31/2025 10:00 AM 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 Office Visit [facility] [address] [place] [address], [facility] [address] [place] [address] Paul Chandler MD PVD (peripheral vascular disease) (Primary Dx) 03/31/2025 Travel 03/03/2025 1:10 PM CDT - 03/03/2025 11:59 PM CDT Hospital Encounter [facility] [address] [place] [address], [address] [place] [address] Fernando Couch MD Vo, MD Abbe Discharge Disposition: Home or Self Care 03/03/2025 Travel from Last 3 Months Family History Medical History Relation Name Comments Alzheimer's Disease Other Arthritis - Rheumatoid Other CAD (Coronary Artery Disease) Other Lymphoma Other Other Other neg Seizures Other Relation Name Status Comments Other Social History Tobacco Use Types Packs/Day Years Used Date Smoking Tobacco: Former Cigarettes 1.5 23 1 965 - 1987 Smokeless Tobacco: Never Tobacco Cessation:Counseling Given: Not Answered Comments:Quit 30 years ago Alcohol Use Standard [...] Oxygen Concentration 40% 04/12/2022 3 :16 PM 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 Weight 98 kg (216 lb 0.8 oz) 03/31/2025 10:28 AM 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 Height 165.1 cm (5' 5) 03/31/2025 10:28 AM 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 Body Mass Index 35.95 03/31/2025 10:28 AM 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 Plan of Treatment Upcoming Encounters Date Type Department Care Team (Late st Contact Info) Description 06/23/2025 2:45 PM 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 Appointment [facility] [address] [place] [address], [place] [address] Health Maintenance Due Date Last Done Comments [...] 03/03/2025 2:10 PM CDT Abbe Monterroso MD 03/23/2025 12:11 PM [facility] Patient Name: Gregoria Rae : 1950 DATE OF PROCEDURE: 03/03/2025 ORDERING PHYSICIAN: Dr. Couch PROCEDURE: Left AV fistulogram with peripheral venous angioplasty of left cephalic arch vein using 8 mm x 4 cm [...] was advanced under fluoroscopy and a 5 Italian catheter placed. Digital subtraction images were obtained of the LUE AVG. This revealed no areas of stenosis within the AVG. Centrally, an area of high-grade stenosis was identified in the left cephalic arch vein. An image of the arteial inflow [...] Glidewire was manipulated centrally and the left cephalic arch stenoses was dilated with a 8 mm [...] stenosis in the area of the left cephalic arch vein. IMPRESSION: Successful peripheral venous angioplasty DICTATED BY: Nichelle Monterroso M.D. DATE DICTATED: 03/03/2025 Interventional Post-Operative/Procedure Notes Surgeon: Nichelle Monterroso M.D. Pre Procedure Diagnosis: ESRD Post Procedure Diagnosis: ESRD Anesthesia: Local 1% lidocaine Disposition: OPS Status: Stable Drain or Pack: None Additional Information/Complications:None Estimated Blood Loss: Negligible Specimen: None Uriel Lindsey MD IR ORDERABLES Edited Res ult - Final from Last 3 Months Insurance MEDICARE [facility] MEDICARE [id number] [id number] Advance Directives * Full Code (Latest Code Status on File) Date Activated Date Inactivated Comments 05/14/2022 8:26 AM 05/28/2022 12:06 PM Care Teams Scheme Technician Relationship Specialty Start Date End Date Rikki Amezquita MD [address] [place] [address] PCP - General 11/28/21
--- OUTSIDE RECORDS SUMMARY | 2025-04-20 18:06 | XMS_ITS ---
Author Organization [facility] Address [address] [place] [address] Care Team Providers Care Outreach And Education Social Worker Name Role Phone Mona Currie MD PhD Unavailable [phone] Sammy Shepard MD Unavailable [phone] Rikki Amezquita MD Primary Care Provider Dialysis Access Sites Type Status Location Placement Date Removal Da te Hemodialysis AV Access Upper arm Active Left Upper Arm - Anterior Procedures Procedure Name Priority Date/Time Associated Diagnosis Comments EGFR STAT 04/10/2025 4:43 PM DIAMOND DIE [employer]KER DIFFERENTIAL AUTO STAT 04/10/2025 4:4 3 PM [employer] APTT STAT 04/10/2025 4:43 PM [employer] PROTIME-INR Routine 04/10/2025 4:43 PM [employer] COMPREHENSIVE METABOLIC PANEL STAT 04/10/2025 4:43 PM [employer] CBC WITH AUTO DIFFERENTIAL STAT 04/10/2025 4:43 PM [employer] POCT LIPID PANEL Routine 07/01/2024 9:57 AM [employer]AMOND D[employer]KER Need for lipid screening HEMOGLOBIN A1C Routine 02/27/2024 5:59 AM CDT HEPATITIS PANEL, ACUTE STAT 3:59 PM [employer]AMOND [employer] from Last 3 Months or Most Recently Relevant to Health Maintenance Allergies Active Allergy Reactions Criticality Noted Date Comments Diphenhydramine Other (See comments) Low Restless leg Nickel Rash Medium Nifedipine Chest tightness Medium Oimejdp-Lib-Erv Reductase Inhibitors Muscle pain Medium Sulfa Hives [...] tablet (20 mg total) nightly Active banana cptxfx-IEG-mjc er 5 gram-45 kcal/60 mL liquid in [...] per tube 1 tablet (200 mcg total) community administrator before breakfast 03/31/20 Active Additional Information Patient [...] 03/26/2025 Assessment & Plan (04/16/2025 9:46 AM DIAMOND DIE MAKER): Treated inpatient although likely asymptomatic bacteriuria with sx favored to be metabolic encephalopathy, completed Augmentin 03/10-03/16 Monitor Oliguric at baseline Assessment & Plan (04/08/2025 4:06 PM DIAMOND [employer]KER): Treated inpatient Likely asymptomatic bacteriuria with sx favored to be metabolic encephalopathy, completed Augmentin 03/10-03/16 monitor Assessment & Plan (04/01/2025 8:55 PM DIAMOND [employer]IE MAKER): Likely asymptomatic bacteriuria with sx favored to be metabolic encephalopathy, completed Augmentin 03/10-03/16 monitor Open wound of left heel 03/25/2025 Assessment & Plan (03/25/2025 4:39 PM DIAMOND DIE MAKER): Subacute, stabilizing Completed course of antibiotics while admitted Ulceration thought to be related to significant atherosclerosis and potential claudication for which patient has vascular follow-up with Dr. Chandler. At [facility] per family, plans to transport Wound care [facility] to follow-up facility Apply skin prep with calcium alginate to ulcerated area and pressure dressing, to be changed daily Discussed with nursing staff Debility 03/25/2025 Assessment & Plan (03/25/2025 4:39 PM DIAMOND DIE MAKER): Pt appropriately at SNF to regain strength. [...] 04/13/2024 Assessment & Plan (04/28/2024 2:26 PM DIAMOND DIE [employer]KER): Stable on room air, continue trelegy, spiriva, prn duonebs Assessment & Plan (04/13/2024 12:50 PM DIAMOND [employer]KER): Stable on room air, continue trelegy, spiriva, [...] 02/26/2024 Assessment & Plan (03/25/2025 4:39 PM DIAMOND DIE MAKER): Chronic, stable Per review hemoglobin 8.7, hematocrit 29.0 per review of labs from [facility] Repeat CBC ordered Assessment & Plan (04/28/2024 2:29 PM DIAMOND DIE MAKER): Hb 9-10 at baseline, stable, continue epogen with HD CVA, old, aphasia 02/26/2024 Assessment & Plan (04/01/2025 8:57 PM DIAMOND DIE MAKER): Neuro condition consistent with baseline with persistent aphasia, confusion; able to self propel WC with leg, assist with some care Remains a fall risk Continue atorvastatin, maintain BP and glycemic control PT/OT/REVENUE CYCLE MANAGER provides full care at home Assessment & [...] 01/25/2024 Assessment & Plan (04/01/2025 9:04 PM DIAMOND DIE MAKER): Dressing in place with wound [facility] following, non healing wound; imaging reviewed, severe [...] 01/25/2024 Assessment & Plan (04/28/2024 2:25 PM DIAMOND DIE MAKER): Tube removed, keep healing stoma clean, dry, covered. F/u with PCP Assessment & Plan (04/13/2024 12:46 PM DIAMOND DIE MAKER): Recently pulled out by patient, surgical site is healing, continue to clean daily and cover with dry gauze Assessment & Plan (04/09/2024 1:53 PM DIAMOND [employer]IE MAKER): Ok to keep tube out, cover area daily with dry gauze until healed, notify provider for change in condition or sx of dysphagia Assessment & Plan (04/06/2024 8:05 PM DIAMOND [employer]IE [employer]KER): Now tolerating PO, likely could permanently DC soon, continue with h2o flushes for now Assessment & Plan (03/15/2024 10:55 AM DIAMOND DIE MAKER): Continue to flush q.i.d., able to tolerate food by mouth, REVENUE CYCLE MANAGER following Assessment & Plan (03/06/2024 9:49 [...] on imaging, continue nepro at 40ml/hr with REVENUE CYCLE MANAGER following for repeat swallow studies Hyperkalemia 01/18/2024 Assessment & Plan (01/18/2024 7:41 AM CDT): Improved after treatment at the hospital. Continue to monitor with dialysis. 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 01/18/2024 Assessment & Plan (04/16/2025 9:46 AM DIAMOND DIE MAKER): Subacute with chronic debility, ambulatory with walker at home R sided weakness, aphasia Continue statin, maintain BP and glycemic control provides total care at home Assessment & Plan (04/08/2025 4:07 PM DIAMOND DIE MAKER): Chronic debility, ambulatory with walker at baseline R sided weakness, aphasia Continue statin, maintain Bp and glycemic control Assessment & Plan (03/25/2025 4:39 PM DIAMOND DIE MAKER): Chronic, stable Significant aphasia and right sided hemiplegia Previous to hospitalization was ambulatory with use of walker Continue Eliquis and Atorvastatin Assessment & Plan (04/28/2024 2:31 PM DIAMOND DIE MAKER): Has some improvement with therapy but remains weak with hemiparesis and aphasia, requires full care for all ADLs, unable to reposition self and will require electric hospital bed at home, ongoing PT/OT Contonie asa, statin, eliquis Heart healthy diet with exercise as tolerated Maintain BP and glycemic control F/u PCP Assessment & Plan (04/13/2024 12:49 PM DIAMOND DIE MAKER): Deficits improving have seem to stabilize now ambulatory with walker and gait belt, tolerating PO, speech garbled, continue statin, eliquis, heart healthy diet with exercise as tolerated; may need to transfer to LTC vs home with home health and family to care Assessment & Plan (04/09/2024 1:53 PM DIAMOND DIE MAKER): Deficits improving, now ambulatory with walker and gait belt, tolerating PO, speech remains garbled, continue statin, eliquis, heart healthy diet with exercise as tolerated Assessment & Plan (04/06/2024 8:08 PM DIAMOND DIE MAKER): Improving with therapies, now ambulatory and tolerating PO, speech remains garbled, continue statin, eliquis, heart healthy diet with exercise as tolerated Assessment & Plan (03/31/2024 2:26 PM DIAMOND DIE MAKER): Speech and mobility improving, now ambulatory with walker and gait belt. Continue PT/OT/REVENUE CYCLE MANAGER, continue statin and Eliquis, maintain BP and glycemic control Assessment & Plan (03/20/2024 8:07 PM DIAMOND DIE MAKER): Improving with therapy, continue statin and Eliquis, maintain BP and glycemic control. Continue PT OT, REVENUE CYCLE MANAGER, remains a fall risk F/u with neurology as scheduled, plans to DC home with Assessment & Plan (03/15/2024 10:51 AM DIAMOND DIE MAKER): Improving with therapy, continue statin and Eliquis, maintain BP and glycemic control. Continue PT OT, REVENUE CYCLE MANAGER, remains a fall risk Assessment & Plan (03/06/2024 9:49 PM CDT): Stable, improving with therapies, continue statin, eliquis, PT/OT/REVENUE CYCLE MANAGER, supportive care, continue to advance diet as tolerated Assessment & Plan (02/27/2024 3:02 PM CDT): Stable, improving with therapies, continue statin, eliquis, PT/OT/REVENUE CYCLE MANAGER, supportive care with plans to DC home following rehab stay Assessment & Plan (02/20/2024 1:56 PM CDT): Deficits improving with therapy, continue statin and eliquis, PT/OT/REVENUE CYCLE MANAGER with video swallow scheduled Continue bID zyprexa 2.5mg for now, may tolerate GDR at subsequent visit Assessment & Plan (02/19/2024 10:51 AM CDT): Improving with therapy, no recurrent episodes of agitation since starting BID zyprexa, continue statin and eliquis, PT/OT/REVENUE CYCLE MANAGER with video swallow scheduled Assessment & Plan (02/11/2024 1:32 PM CDT): Improving, continue statin and eliquis, PT/OT. REVENUE CYCLE MANAGER following for advancement of diet, will schedule Zyprexa 2.5mg HS rather than In am, conitnue supportive care, fall precautions Assessment & Plan (02/08/2024 3:56 PM CDT): Mobility and speech improving with intermittent agitation, fall risk, zyprexa increased to 2.5mg daily as unable to be redirected at times. Continue statin, eliquis, PT/TO/REVENUE CYCLE MANAGER, TF nataliyaro per RD recs Assessment & Plan (02/03/2024 8:55 AM CDT): Mobility is improving, remains aphasic, able to follow simple commands and has spontaneous movements of all extremities; continue statin, eliquis, glycemic control, BP management, PT/OT/REVENUE CYCLE MANAGER Assessment & Plan (02/01/2024 9:33 AM CDT): Mobility is improving, intermittent anxiety, will need to monitor and provide supportive care, attempt to avoid benzos or antipsychotics although may need prn low dose meds due to fall risk and inability to be redirected; continue statin, eliquis, glycemic control, BP management, PT/OT/REVENUE CYCLE MANAGER Assessment & Plan (01/28/2024 2:35 PM [...] & Plan (01/25/2024 12:46 PM CDT): Ongoing PT/OT/REVENUE CYCLE MANAGER with generalized weakness, aphasia and R sided facial droop, follows some simple commands, continue statin and eliquis; monitor for fall risk given intermittent agitation; no new meds today but may need PRN due to fall risk Assessment & Plan (01/25/2024 11:13 AM CDT): Mobility is improving now at times getting out of bed without help, continue to monitor for fall risk, PT/OT/REVENUE CYCLE MANAGER; continue statin and eliquis Assessment & Plan (01/18/2024 5:52 PM CDT): Ongoing R sided weakness, R sided facial droop, aphasia; reports some improvement in spontaneous movement and mumbling. Continue asa, statin, eliquis; of note has documented statin intolerance, will need to find out specifics Continue PT/OT REVENUE CYCLE MANAGER , tube feeds for now with plans for repeat video swallow Type 2 diabetes mellitus with renal complication 01/18/2024 Assessment & Plan (04/16/2025 9:45 AM DIAMOND DIE MAKER): Stable on lantus 18 units HS Glucose 124 this am Continue accuchecks with dm diet Assessment & Plan (04/01/2025 9:09 PM DIAMOND DIE MAKER): DC on lantus 18 units daily; order accuchecks AM and HS Encourage DM diet Assessment & Plan (03/25/2025 4:39 PM DIAMOND DIE MAKER): Chronic, stable Continue insulin glargine 18 units subcutaneously at bedtime Accu-Cheks daily Assessment & Plan (04/09/2024 1:54 PM DIAMOND DIE MAKER): Glucose logs reviewed and stable, continue HS lantus and mealtime SSI, will try to DC SSI prior to DC home Assessment & Plan (04/06/2024 8:06 PM DIAMOND DIE MAKER): Stable, continue HS lantus and mealtime SSI, [...] 10/06/2022 Assessment & Plan (04/16/2025 9:45 AM DIAMOND DIE MAKER): stable, rate controlled on exam Continue Metoprolol, Amiodarone, Eliquis F/u cardiology Dr Gillette Remains a fall risk Assessment & Plan (04/08/2025 4:08 PM DIAMOND DIE MAKER): Chronic, stable, rate controlled on exam Continue Metoprolol, Amiodarone, Eliquis F/u cardiology Dr Gillette Assessment & Plan (04/01/2025 9:11 PM DIAMOND DIE MAKER): Chronic, stable, rate controlled on exam Continue Metoprolol, Amiodarone, Eliquis F/u cardiology Dr Gillette Assessment & Plan (03/25/2025 4:39 PM DIAMOND DIE MAKER): Chronic, stable Continue Metoprolol, Amiodarone, Eliquis F/u cardiology Dr Gillette Assessment & Plan (04/28/2024 2:28 PM DIAMOND DIE MAKER): Rate controlled, continue metoprolol, amiodarone, eliquis F/u cardiology dr wiley Assessment & Plan (04/13/2024 12:46 PM DIAMOND DIE MAKER): Rate controlled on exam; continue metoprolol, amiodarone, Eliquis ; no recent falls Assessment & Plan (04/06/2024 8:06 PM DIAMOND DIE MAKER): Rate controlled; continue metoprolol, amiodarone, Eliquis Assessment & Plan (03/31/2024 2:29 PM DIAMOND DIE MAKER): Rate controlled on metoprolol, amiodarone; continue b.i.d. Eliquis Assessment & Plan (03/20/2024 8:09 PM DIAMOND DIE MAKER): Stable on metoprolol, amiodarone and eliquis, conitnue [...] 10/06/2022 Assessment & Plan (04/16/2025 9:45 AM DIAMOND DIE MAKER): Stable, On chronic HD prior to CVA Continue treatments at [facility] Continue calcium acetate Encourage renal diet with supplements Weekly labs per HD Assessment & Plan (04/08/2025 4:05 PM DIAMOND DIE MAKER): Stable, On chronic HD prior to CVA Continue treatments at [facility] Continue calcium acetate Continue Renal diet, offer supplements Weekly labs per HD Assessment & Plan (04/01/2025 8:58 PM DIAMOND DIE MAKER): On chronic HD prior to CVA Continue treatments at [facility] Continue calcium acetate Renal diet, offer supplements Weekly labs per HD Assessment & Plan (03/25/2025 4:39 PM DIAMOND DIE MAKER): Chronic, stable Continue treatments Sunday/Sunday/Sunday Nephrology to follow while at facility Assessment & Plan (04/28/2024 2:26 PM DIAMOND DIE MAKER): Continue treatments outpatient MWF, epogen on HD days, f/u with nephrology Assessment & Plan (04/09/2024 1:54 PM DIAMOND DIE MAKER): Tolerating HD MWF, at times using p.r.n. lorazepam with HD treatment, anxiety during access. Monitor electrolytes and weight Continue Epogen Assessment & Plan (04/06/2024 8:08 PM DIAMOND DIE MAKER): Continue HD MWF, p.r.n. lorazepam with HD treatment. Monitor electrolytes and weight Continue Epogen Assessment & Plan (03/31/2024 2:26 PM DIAMOND DIE MAKER): Continue HD MWF, continues to use p.r.n. lorazepam with HD treatments; daughter states this is helping,. Monitor electrolytes and weight Continue Epogen Assessment & Plan (03/20/2024 8:08 PM DIAMOND DIE MAKER): Continue HD MWF, continue to monitor electrolytes and weight, may use p.r.n. lorazepam with HD treatments; no reports of recent agitation with treatments Assessment & Plan (03/15/2024 10:52 AM DIAMOND DIE MAKER): Continue HD MWF, continue to monitor electrolytes [...] 07/02/2019 Assessment & Plan (03/25/2025 4:39 PM DIAMOND DIE MAKER): Chronic, stable Euvolemic on exam Continue metoprolol succinate 50 mg 1 capsule by mouth once daily Assessment & Plan (04/28/2024 2:26 PM DIAMOND DIE MAKER): Stable, continue metoprolol, monitor weights with HD Assessment & Plan (03/20/2024 8:08 PM DIAMOND DIE MAKER): Stable on exam, continue metoprolol, monitor I/O, [...] 02/04 Assessment & Plan (04/06/2024 8:06 PM DIAMOND DIE MAKER): Weight is stable since rehab admission, continue exercise as tolerated, RD following Assessment & Plan (03/20/2024 8:09 PM DIAMOND DIE MAKER): Mobility is improving, recently stopped TF and [...] 02/04 Assessment & Plan (04/08/2025 4:08 PM DIAMOND DIE MAKER): Stable, euvolemic appearing Continue isosorbide, hydralazine, metoprolol for BP goal <140/<90 HD MWF Assessment & Plan (04/01/2025 9:10 PM DIAMOND DIE MAKER): Continue isosorbide, hydralazine, metoprolol for BP goal <140/<90 Assessment & Plan (04/13/2024 12:48 PM DIAMOND DIE MAKER): Stable/compensated, continue HD treatments, weekly weights, metoprolol, statin amio, eliquis Assessment & Plan (03/20/2024 8:08 PM DIAMOND DIE MAKER): Stable on metoprolol and amiodarone, continue HD [...] a associated with type 2 diabetes mellitus ([facility]) 05/20/2013 Overview (08/11/2016): DMII WO CMP UNCNTRLD Assessment & Plan (04/08/2025 4:05 PM DIAMOND DIE MAKER): Well controlled on lantus 18 units hs with mealtime SSI continue accuchecks ac and hs Encourage DM Diet No recent A1c for review Assessment & Plan (04/13/2024 12:48 PM DIAMOND DIE MAKER): Well controlled on lantus 18 units hs with mealtime SSI, continue accuchecks ac and hs Assessment & Plan (03/15/2024 10:54 AM DIAMOND DIE MAKER): Glucose logs reviewed continue lantus 18 units [...] NOS Assessment & Plan (03/25/2025 4:39 PM DIAMOND DIE MAKER): Chronic, not at goal Patient with elevated systolics, will continue to monitor Continue hydralazine 25 mg by mouth t.i.d., Imdur 30 mg by mouth daily, and metoprolol Plan to increase hydralazine doses to 50 mg t.i.d. if needed Assessment & Plan (04/28/2024 2:28 PM DIAMOND DIE MAKER): Continue Lantus 18 units HS with mealtime SSI and daughter will assist with med administration Bp stable on metoprolol, monitor for BP goal ,140/<90 Continue accuchecks ac and hs Assessment & Plan (03/31/2024 2:28 PM DIAMOND DIE MAKER): Continue Lantus 18 units HS with mealtime SSI, glucose 236 this a.m., evening glucose 170, continue diabetic diet. BP stable on metoprolol Assessment & Plan (03/15/2024 10:53 AM DIAMOND DIE MAKER): BP stable on metoprolol 50mg daily, continue [...] NOS Assessment & Plan (03/25/2025 4:39 PM DIAMOND DIE MAKER): Chronic, stable Continue levothyroxine 200 mcg 1 tablet by mouth daily Assessment & Plan (04/13/2024 12:51 PM DIAMOND DIE MAKER): Subclinical hypothyroidism with TSH trending up to 92, encourage appropriate administration of medication in early a.m. on empty stomach, Synthroid increased to 200 mcg daily at previous visit with plan to repeat ths in 6 weeks, T3 and T4 normal Assessment & Plan (03/31/2024 2:30 PM DIAMOND DIE MAKER): Subclinical hypothyroidism with TSH trending up to 92, encourage appropriate administration of medication in early a.m. on empty stomach, Synthroid increased to 200 mcg daily Assessment & Plan (03/20/2024 8:09 PM DIAMOND DIE MAKER): Inpatient workup with Tsh elevated with normal t4, ensure medication administration appropriate early am on empty stomach; repeat TSH this week Assessment & Plan (03/15/2024 10:54 AM DIAMOND DIE MAKER): Inpatient workup with Tsh elevated with normal [...] 0.6 oz pur e alcohol) [facility] Utilities Answer Date Recorded In the past 12 months has [employer], [employer], or [employer] threatened to shut off services in your [...] often do you attend chur ch or confucianist services? Never 02/26/2024 Do you belong to any clubs o r organizations such as congregational groups, unions, fraternal or athletic groups, or [...] any time in the past 12 m [facility], were you homeless or living [...] on file Legal Sex Female 10:22 AM DIAMOND DIE MAKER Gender Identity Not on file Sexual Orientation Not on file Last Filed Vital Signs Vital Sign Reading Time Taken Comments Blood Pressure 189/79 04/10/2025 6:45 PM DIAMOND DIE MAKER Pulse 69 04/10/2025 6:45 PM DIAMOND DIE MAKER Temperature 36.2 C (97.2 F) 04/10/2025 4:20 PM DIAMOND DIE MAKER Respiratory Rate 18 04/10/2025 6:45 PM DIAMOND DIE MAKER Oxygen Saturation 95% 04/10/2025 6:45 PM DIAMOND DIE MAKER Inhaled Oxygen Concentration - - Weight 87.6 kg (193 lb 2 oz) 04/10/2025 4:30 PM DIAMOND DIE MAKER Height 162.6 cm (5' 4) 07/01/2024 9:38 AM DIAMOND DIE MAKER Body Mass Index 33.15 07/01/2024 9:38 AM DIAMOND DIE MAKER Results * (ABNORMAL) eGFR (04/10/2025 4:43 PM DIAMOND DIE MAKER) eGFR 11(L) >=60 mL/min/1. 73 m2 Comment: [...] last reviewed 2021. Blood 04/10/2025 4:43 PM DIAMOND DIE MAKER 04/10/2025 4:46 PM DIAMOND DIE MAKER Gwen Bonilla MD LAB BLOOD ORDERABLES F inal Result [facility] [address] [facility] [place] [address] * (ABNORMAL) Differential, auto (04/10/2025 4:43 PM DIAMOND DIE MAKER) Pathologist [facility] Neutrophil abs 5.77 1.50 - 6.50 K/cumm Imm gran abs 0.01 0.00 - 0.10 K/cumm [facility] Lymphocyte abs 1.03 0.80 - 3.30 K/cumm [facility] Monocyte abs 0.78 0.20 - 0.80 K/cumm [facility] Eosinophil abs 0.51(H) 0.00 - 0.50 K/cumm [facility] Basophil abs 0.03 0.00 - 0.10 K/cumm [facility] Neutrophil pct 70.9 % [facility] Comment: Interpretive Data Percent cell count reference ranges are not reported, since discordance with absolute values may lead to misinterpretation of CBC data. Current Interpretive Data was last revised on 2017. Imm gran pct 0.1 % [facility] Comment: Interpretive Data Percent cell count reference ranges are not reported, since discordance with absolute values may lead to misinterpretation of CBC data. Current Interpretive Data was last revised on 2017. Lymphocyte pct 12.7 % [facility] Comment: Interpretive Data Percent cell count reference ranges are not reported, since discordance with absolute values may lead to misinterpretation of CBC data. Current Interpretive Data was last revised on 2017. Monocyte pct 9.6 % [facility] Comment: Interpretive Data Percent cell count reference ranges are not reported, since discordance with absolute values may lead to misinterpretation of CBC data. Current Interpretive Data was last revised on 2017. Eosinophil pct 6.3 % [facility] Comment: Interpretive Data Percent cell count reference ranges are not reported, since discordance with absolute values may lead to misinterpretation of CBC data. Current Interpretive Data was last revised on 2017. Basophil pct 0.4 % [facility] Comment: Interpretive Data Percent cell count reference ranges are not reported, since discordance with absolute values may lead to misinterpretation of CBC data. Current Interpretive Data was last revised on 2017. Blood 04/10/2025 4:43 PM DIAMOND DIE MAKER 04/10/2025 4:46 PM DIAMOND DIE MAKER us Gwen Bonilla MD LAB BLOOD ORDERABLES F inal Result [place] [address] [facility] [place] [address] * (ABNORMAL) CBC with auto differential (04/10/2025 4:43 PM DIAMOND DIE MAKER) Pathologist [facility] WBC 8.13 3.80 - 9.90 K/cumm Hgb 8.0(L) 11.9 - 15.5 g/dL [facility] Hct 26.6(L) 35.6 - 45.5 % [facility] Plt 285 150 - 400 K/cumm [facility] MPV 9.6 9.1 - 12.3 fL [facility] RBC 3.05(L) 3.90 - 5.20 M/cumm [facility] MCV 87.2 81.3 - 96.4 fL [facility] MCH 26.2(L) 27.1 - 33.3 pg [facility] MCHC 30.1(L) 32.3 - 35.7 g/dL [facility] RDW CV 17.4(H) 11.1 - 14.9 % [facility] RDW SD 55.4(H) 35.7 - 48.1 fL [facility] NRBC abs 0.00 0.00 - 0.01 K/cumm [facility] Blood 04/10/2025 4:43 PM DIAMOND DIE MAKER 04/10/2025 4:46 PM DIAMOND DIE MAKER Gwen Bonilla MD LAB BLOOD ORDERABLES F inal Result Performing Organization Address [facility] Co de Phone Number [address] [place] [address] * (ABNORMAL) aPTT (04/10/2025 4:43 PM DIAMOND DIE MAKER) aPTT 42(H) 22 - 37 sec Comment: Interpretive data aPTT test has not been evaluated for monitoring heparin therapy. The anti-Xa is the preferred test. Current interpretive data was last revised on 2019. Blood 04/10/2025 4:43 PM DIAMOND DIE MAKER 04/10/2025 4:46 PM DIAMOND DIE MAKER Gwen Bonilla MD LAB BLOOD ORDERABLES F inal Result Performing Organization Address [facility] Co de Phone Number [address] [place] [address] * (ABNORMAL) Protime-INR (04/10/2025 4:43 PM DIAMOND DIE MAKER) PT 18.70(H) 12.00 - 14.60 sec INR 1.56(H) 0.90 - 1.20 [facility] Comment: Interpretive data Oral anticoagulant therapeutic ranges: Venous thromboembolism prophylaxis or treatment: 2.0-3.0 CARDIOLOGY Standard range: 2.0-3.0 High-intensity range: 2.5-3.5 Refer to indication-specific guidelines for appropriate target ranges for prosthetic heart valve replacement. Current interpretive data was last revised on 2019. Blood 04/10/2025 4:43 PM DIAMOND DIE MAKER 04/10/2025 4:46 PM DIAMOND DIE MAKER Gwen Bonilla MD LAB BLOOD ORDERABLES F inal Result [facility] [address] [place] [address] * (ABNORMAL) Comprehensive metabolic panel (04/10/2025 4:43 PM DIAMOND [employer]KER) Sodium 137 135 - 145 mmol/L Potassium, pl 3.7 3.3 - 4.9 mmol/L [facility] Comment:Hemolyzed; Potassium value may be falsely elevated by as much as 1.0 mmol/L. Suggest redraw and reanalysis. Chloride 96(L) 97 - 110 mmol/L [facility] CO2 33(H) 22 - 32 mmol/L [facility] Anion gap 8 2 - 15 mmol/L [facility] BUN 25 6 - 25 mg/dL [facility] Creatinine 3.95(H) 0.60 - 1.10 mg/dL [facility] Glucose 132 70 - 199 mg/dL [facility] Comment: Interpretive Data Fasting glucose >/= 126 [...] 2022. Calcium 8.8 8.5 - 10.3 mg/dL [facility] Bilirubin, total 0.6 0.1 - 1.2 mg/dL [facility] Protein, pl 7.6 6.5 - 8.5 g/dL [facility] Albumin 3.5 3.5 - 5.0 g/dL [facility] Alk phos 122 40 - 130 Units/L [facility] ALT 13 7 - 45 Units/L [facility] AST 25 10 - 45 Units/L [facility] Comment:Hemolyzed; result ma y be falsely elevated Blood 04/10/2025 4:43 PM [employer] 04/10/2025 4:46 PM [employer] Gwen Bonilla MD LAB BLOOD ORDERABLES F inal Result Performing Organization Address City/[facility]/ZIP Co de Phone Number [facility] [address] [place] [address] * POCT lipid panel (07/01/2024 9:57 AM DIAMOND [employer] MAKER) Cholesterol, POC 138 mg/dL Comment:GLU = 176 HDL, POC 17 mg/dL Triglycerides, POC 168 mg/dL LDL Cholesterol POC 88 mg/dL Chol/HDL Ratio, POC 5.2 Non-HDL Cholesterol, POC 121 mg/dL Cholesterol Total, POC 138 mg/dL Capillary blood 07/01/2024 9 :57 AM [employer] Uriel Gillette MD POINT OF CARE TEST [...] and children were not included. (Diabetes Care 31:6547-0003, 2008). The eAG is not equivalent to a fasting glucose. Blood 02/27/2024 5:59 AM CDT 02/27/2024 7:11 AM CDT Asif Delgadillo MD LAB BLOOD ORDERABLES Final Re sult Performing Organization Address City/[facility]/ZIP Co de Phone Number [facility] [address] [place] [address] * Hepatitis panel, acute (05/08/2022 3:59 PM DI[employer]KER) Hep A IgM Nonreactive [facility]reactive [facility] Comment: Interpretive Data: If Hep A IgM Ab is reported as Equivocal, a new sample should be drawn in two weeks for testing. Current interpretive data was last revised on 19. Hep B core IgM Nonreactive Nonreactive [facility] Comment: Interpretive Data If HepB Core IgM Ab is reported as Equivocal, a new sample should be drawn in two weeks for testing. Current interpretive data was last revised on 19. Hep C Ab Nonreactive Nonreactive [facility] Comment: Interpretive Data Nonreactive: Antibodies to [...] [facility] Blood 05/08/2022 3:59 PM DI[employer]KER 05/08/2022 3:59 PM DIAMOND D[employer]ER us Mellissa Garcia DO LAB MICROBIOLOGY - GENERAL ORD ERABLES Final Result [facility] [address] [place] [address] from Last 3 Months or Most Recently Relevant to Health Maintenance
--- OUTSIDE RECORDS SUMMARY | 2025-04-20 18:06 | XMS_ITS | Encounter Summary ---
Author Organization [facility] Address [address] [facility] [place] [address] Care Team Providers Care Environment Coordinator Name Role Phone Rikki Amezquita MD Primary Care Provider [phone] Reason for Referral * Radiology Services (Routine) - Closed Specialty Diagnoses / Procedures Referred By Contac t Referred To Contact Vascular Lab Diagnoses ESRD (end stage renal disease) on dialysis (HCC) Procedures IR Angio Av [facility] Imaging Paul Chandler MD [address] [place] [address] [place] [id number] Phone: tel: fax: [facility] [address] [place] [address], [address] [place] [address] Phone: tel: fax: Referral ID Status Reason Start Date Expiration Date Visits Re quested Visits Authorized [id number] Closed 10/01/2024 10/30/2024 1 1 Encounter Details Date Type Department Care Team (Late st Contact Info) Description 10/01/2024 Telephone [facility] [address] [place] [address], [address] [place] [address] Johana Kent, RN Social History [...] st Contact Info) Description 06/23/2025 2:45 PM DIRECTOR CUSTOM Appointment [facility] [address] [place] [address], [place] [address] documented as of this encounter Results * IR Angio Av [facility] Imaging (10/30/2024 10:20 AM CDT) Anatomical Region Laterality Modality Lower Extremity, Upper Extremity, Chest X-Ray Angiography Narrative 10/30/2024 10:27 AM CDT Fernando Couch MD 10/30/2024 10:39 AM Interventional Radiology Post-Operative/Procedure Progress Notes Date: 10/30/2024 Surgeon: Fernando Couch MD Cytology Supervisor: GREG Staff Pre-Procedure diagnosis: ESRD, outflow vein [...] was obtained. Prior to beginning the procedure, [place] Protocol was performed to confirm the patient's [...] graft followed by placement of a 5 cambodian catheter. Fluoroscopy was used for all catheter [...] disease documented in this encounter Care Teams Environment Coordinator Relationship Specialty Start Date End Date Rikki Amezquita MD [address] [place] [address] PCP - General 11/28/21 documented as of this encounter
--- OUTSIDE RECORDS SUMMARY | 2025-04-20 18:06 | XMS_ITS | Clinical Summary ---
Author Organization [facility] [employer] [facility] lin Address [address] [place] [address] Care Team Providers Care Sewing Techniques Demonstrator Name Role Phone Unavailable Primary Care Provider Unavailabl e Social History Tobacco Use Types Packs/Day Years Used Date Smoking Tobacco: Never Assessed Comments Unknown Sex and Gender Information Value Date Recorded Sex Assigned at Not on file Legal Sex Female 3:17 PM EST Gender Identity Not on file Sexual Orientation Not on file Plan of Treatment Not on file Medical Devices Not on file [place] [address] [place] [address]
--- OUTSIDE RECORDS SUMMARY | 2025-04-20 18:06 | XMS_ITS | Patient Health Record ---
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 (800453122880365) 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) Active confirmed Problem Essential hypertension (20524029) Essential (primary) hypertension (I10) Active confirmed Problem Chronic kidney disease stage 3A (disorder) (673551004) Chronic kidney disease, stage 3a (N18.31) Active [...] Coverage End Date Medicare [place] [address] [address] [place] [address] [id number] Gregoria Rae Self - patient is the insured [facility] [address] [place] [address] [id number] Gregoria Rae Self - patient is the insured Medical (General) History Medical History History ICD Code restless leg syndrome DM HTN CKD Surgical History Surgery Date(Month/Year) thryoidectomy cholecystectomy
--- OUTSIDE RECORDS SUMMARY | 2025-04-20 18:08 | XMS_ITS | Clinical Summary ---
Author Organization [facility] Address [address] [place] [id number] Care Team Providers Care Reimbursement Spec Name Role Phone Unavailable Primary Care Provider [...]
--- OUTSIDE RECORDS SUMMARY | 2025-04-20 18:08 | XMS_ITS ---
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 Phone Unavailable Unavailable Unavailable Allergies, [...] Indication Dosage Frequency Signature (SIG) Comments Components Michael 2024-05 06:00: 00 Yes [id number] Number of Repeats Allowed: Frequency: One time a weekDosesO rdered: Maintenanc e Dose 50 Milligram Route: Intravenou s Fabricioofer 2024-05 13:30: 55 Yes [id number] Number of Repeats Allowed: 10Frequenc y: Every Dialysis TreatmentD osesOrdere d: Loading Dose 100 Milligram Route: Intravenou s Mircera 2024-05 06:00: 00 Yes [id number] Number of Repeats Allowed: Frequency: RADHA dosing, every two weeks ONS [facility] 2024-05 16:26: 08 Yes [id number] Number of Repeats Allowed: Frequency: Every Dialysis Treatment Oxygen 2024-05 06:00: 00 Yes [id number] Number of Repeats Allowed: Frequency: As needed acetaminoph en 2024-05 1-18 00:34: 50 Yes [id number] Number of Repeats Allowed: Frequency: Every 4 [...] Gain BFR DFR Actual [facility] Dialysis Access Decem 2024 In-Ce nter Hemod ialys is Treat ment 2025-04-17 T16:06:04. 000Z 2025-04-17 T19:36:04. 000Z BP Sitting (Pre-Dialysis) 163/65 mmHg BP Sitting (Post-D ialysis ) 176/ 61 mmHg Sitting Heart Rate Pre-Dialysis 62 BPM Sitting H eart Rate Post-Dialysis 57 BPM Temperature Pre-Dialysis 98 degF Temperature Post -Dialysis 98.2 degF April 15, 2025 In-Center Hemodialysis Treatment 9821-24-54E30:43:21.000Z 6036-10-15L72:45:26.000Z BP Sitting (Pre-Dialysis) 122/70 mmHg BP Sitting (Post-Dialysis) 151/58 mmHg Concurrent Access: falseAV Fistula Upper Arm (Left) Arterial Sitting Heart Rate Pre-Dialysis 67 BPM Sitting H eart Rate Post-Dialysis 63 BPM Temperature Pre-Dialysis 98 degF Temperature Post -Dialysis 97.4 degF April 13, 2025 In-Center Hemodialysis Treatment 6130-59-26B63:28:00.000Z 4938-78-04C25:53:38.000Z BP Sitting (Pre-Dialysis) 145/80 mmHg BP Sitting (Post-Dialysis) 158/79 mmHg Concurrent Access: falseAV Fistula Upper Arm (Left) Arterial Sitting Heart Rate Pre-Dialysis 68 BPM Sitting H eart Rate Post-Dialysis 60 BPM Temperature Pre-Dialysis 97.9 degF Temperature Post -Dialysis 97.9 degF April 10, 2025 In-Center Hemodialysis Treatment 5069-58-04S93:23:00.000Z 8984-90-13N65:57:03.000Z BP Sitting (Pre-Dialysis) 165/96 mmHg BP Sitting (Post-Dialysis) 139/90 mmHg Concurrent Access: falseAV Fistula Upper Arm (Left) Arterial Sitting Heart Rate Pre-Dialysis 77 BPM Sitting H eart Rate Post-Dialysis 66 BPM Temperature Pre-Dialysis 97.6 degF Temperature Post -Dialysis 97.3 degF April 08, 2025 In-Center Hemodialysis Treatment 1984-60-08O66:19:00.000Z 3962-60-62R50:48:00.000Z BP Sitting (Pre-Dialysis) 148/68 mmHg BP Sitting (Post-Dialysis) 173/71 mmHg Concurrent Access: falseAV Fistula Upper Arm (Left) Arterial Sitting Heart Rate Pre-Dialysis 53 BPM Sitting H eart Rate Post-Dialysis 65 BPM Temperature Pre-Dialysis 97.8 degF Temperature Post -Dialysis 97.3 degF April 06, 2025 In-Center Hemodialysis Treatment 5533-71-49N40:32:00.000Z 3196-90-96U53:01:00.000Z BP Sitting (Pre-Dialysis) 157/92 mmHg BP Sitting (Post-Dialysis) 169/88 mmHg Concurrent Access: falseAV Fistula Upper Arm (Left) Arterial Sitting Heart Rate Pre-Dialysis 60 BPM Sitting H eart Rate Post-Dialysis 60 BPM Temperature Pre-Dialysis 97.9 degF Temperature Post -Dialysis 97.9 degF April 03, 2025 In-Center Hemodialysis Treatment 4246-32-56U05:34:00.000Z 3525-67-18B39:03:39.000Z BP Sitting (Pre-Dialysis) 168/89 mmHg BP Sitting (Post-Dialysis) 146/86 mmHg Concurrent Access: falseAV Fistula Upper Arm (Left) Arterial Sitting Heart Rate Pre-Dialysis 66 BPM Sitting H eart Rate Post-Dialysis 67 BPM Temperature Pre-Dialysis 97.9 degF Temperature Post -Dialysis 98.1 degF April 01, 2025 In-Center Hemodialysis Treatment 0754-56-83M50:20:00.000Z 4647-85-24N78:48:00.000Z BP Sitting (Pre-Dialysis) 155/88 mmHg BP Sitting (Post-Dialysis) 170/92 mmHg Concurrent Access: falseAV Fistula Upper Arm (Left) Arterial Sitting Heart Rate Pre-Dialysis 81 BPM Sitting H eart Rate Post-Dialysis 66 BPM Temperature Pre-Dialysis 97.9 degF Temperature Post -Dialysis 98.1 degF March 30, 2025 In-Center Hemodialysis Treatment 7937-67-86Q88:00:00.000Z 8983-64-26H89:30:00.000Z BP Sitting (Pre-Dialysis) 152/72 mmHg BP Sitting (Post-Dialysis) 132/81 mmHg Concurrent Access: falseAV Fistula Upper Arm (Left) Arterial Sitting Heart Rate Pre-Dialysis 53 BPM Sitting H eart Rate Post-Dialysis 65 BPM Temperature Pre-Dialysis 97.3 degF Temperature Post -Dialysis 97.8 degF March 25, 2025 In-Center Hemodialysis Treatment 9119-06-11N29:59:00.000Z 7373-84-67U78:28:00.000Z BP Sitting (Pre-Dialysis) 199/112 mmHg BP Sitting (Post-Dialysis) 187/87 mmHg Concurrent Access: falseAV Fistula Upper Arm (Left) Arterial Sitting Heart Rate Pre-Dialysis 53 BPM Sitting H eart Rate Post-Dialysis 49 BPM Temperature Pre-Dialysis 97.3 degF Temperature Post -Dialysis 97.6 degF March 16, 2025 In-Center Hemodialysis Treatment 2560-07-73C79:14:47.000Z 3750-17-71U96:51:46.000Z BP Sitting (Pre-Dialysis) 125/64 mmHg BP Sitting (Post-Dialysis) 122/80 mmHg Concurrent Access: falseAV Fistula Upper Arm (Left) Arterial Sitting Heart Rate Pre-Dialysis 54 BPM Sitting H eart Rate Post-Dialysis 59 BPM Temperature Pre-Dialysis 97.8 degF Temperature Post -Dialysis 97 degF March 13, 2025 In-Center Hemodialysis Treatment 0219-79-10I23:07:58.000Z 6287-42-39G38:03:58.000Z BP Sitting (Pre-Dialysis) 127/62 mmHg BP Sitting (Post-Dialysis) 124/78 mmHg Concurrent Access: falseAV Fistula Upper Arm (Left) Arterial Sitting Heart Rate Pre-Dialysis 51 BPM Sitting H eart Rate Post-Dialysis 66 BPM Temperature Pre-Dialysis 97.5 degF Temperature Post -Dialysis 98 degF March 11, 2025 In-Center Hemodialysis Treatment 6247-47-55T43:23:25.000Z 9942-33-83V81:01:25.000Z BP Sitting (Pre-Dialysis) 157/60 mmHg BP Sitting (Post-Dialysis) 128/98 mmHg Concurrent Access: falseAV Fistula Upper Arm (Left) Arterial Sitting Heart Rate Pre-Dialysis 52 BPM Sitting H eart Rate Post-Dialysis 55 BPM Temperature Pre-Dialysis 98 degF Temperature Post -Dialysis 98 degF March 06, 2025 In-Center Hemodialysis Treatment 4213-44-97C87:46:04.000Z 6404-36-49A11:47:03.000Z BP Sitting (Pre-Dialysis) 151/54 mmHg BP Sitting (Post-Dialysis) 139/72 mmHg Concurrent Access: falseAV Fistula Upper Arm (Left) Arterial Sitting Heart Rate Pre-Dialysis 59 BPM Sitting H eart Rate Post-Dialysis 60 BPM Temperature Pre-Dialysis 98.3 degF Temperature Post -Dialysis 97 degF [facility] 7601-22-45M70:31:00.000Z 7492-58-19U07:54:53.000Z BP Sitting (Pre-Dialysis) 142/50 mmHg BP Sitting (Post-Dialysis) 131/50 mmHg Concurrent Access: falseAV Fistula Upper Arm (Left) Arterial Sitting Heart Rate Pre-Dialysis 58 BPM Sitting H eart Rate Post-Dialysis 58 BPM Temperature Pre-Dialysis 97.8 degF Temperature Post -Dialysis 97.6 degF [facility] 6421-12-97V64:27:00.000Z 2072-67-71Z53:32:17.000Z BP Sitting (Pre-Dialysis) 141/90 mmHg BP Sitting (Post-Dialysis) 145/59 mmHg Concurrent Access: falseAV Fistula Upper Arm (Left) Arterial Sitting Heart Rate Pre-Dialysis 53 BPM Sitting H eart Rate Post-Dialysis 59 BPM Temperature Pre-Dialysis 97.8 degF Temperature Post -Dialysis 98.2 degF February 27, 2025 In-Center Hemodialysis Treatment 0125-54-34X65:58:10.000Z 9826-69-34T24:29:10.000Z BP Sitting (Pre-Dialysis) 138/52 mmHg BP Sitting (Post-Dialysis) 166/59 mmHg Concurrent Access: falseAV Fistula Upper Arm (Left) Arterial Sitting Heart Rate Pre-Dialysis 58 BPM Sitting H eart Rate Post-Dialysis 59 BPM Temperature Pre-Dialysis 97.8 degF Temperature Post -Dialysis 98 degF February 25, 2025 In-Center Hemodialysis Treatment 5286-58-96S93:23:38.000Z 2989-97-85Y42:59:37.000Z BP Sitting (Pre-Dialysis) 125/73 mmHg BP Sitting (Post-Dialysis) 185/64 mmHg Concurrent Access: falseAV Fistula Upper Arm (Left) Arterial Sitting Heart Rate Pre-Dialysis 58 BPM Sitting H eart Rate Post-Dialysis 58 BPM Temperature Pre-Dialysis 97.6 degF Temperature Post -Dialysis 98 degF February 23, 2025 In-Center Hemodialysis Treatment 1378-85-28J97:24:38.000Z 9101-17-26Q18:37:38.000Z BP Sitting (Pre-Dialysis) 177/53 mmHg BP Sitting (Post-Dialysis) 141/70 mmHg Concurrent Access: falseAV Fistula Upper Arm (Left) Arterial Sitting Heart Rate Pre-Dialysis 58 BPM Sitting H eart Rate Post-Dialysis 58 BPM Temperature Pre-Dialysis 98 degF Temperature Post -Dialysis 98.2 degF February 20, 2025 In-Center Hemodialysis Treatment 0870-48-64B62:07:00.000Z 9638-59-18P15:58:57.000Z BP Sitting (Pre-Dialysis) 144/57 mmHg BP Sitting (Post-Dialysis) 157/71 mmHg Concurrent Access: falseAV Fistula Upper Arm (Left) Arterial Sitting Heart Rate Pre-Dialysis 50 BPM Sitting H eart Rate Post-Dialysis 54 BPM Temperature Pre-Dialysis 97.5 degF Temperature Post -Dialysis 97.8 degF February 18, 2025 In-Center Hemodialysis Treatment 9893-75-53D54:20:24.000Z 8934-13-29N09:04:24.000Z BP Sitting (Pre-Dialysis) 113/53 mmHg BP Sitting (Post-Dialysis) 151/108 mmHg Concurrent Access: falseAV Fistula Upper Arm (Left) Arterial Sitting Heart Rate Pre-Dialysis 58 BPM Sitting H eart Rate Post-Dialysis 57 BPM Temperature Pre-Dialysis 97.6 degF Temperature Post -Dialysis 98 degF February 16, 2025 In-Center Hemodialysis Treatment 6197-53-63P78:22:52.000Z 7518-34-24B40:59:51.000Z BP Sitting (Pre-Dialysis) 143/61 mmHg BP Sitting (Post-Dialysis) 141/58 mmHg Concurrent Access: falseAV Fistula Upper Arm (Left) Arterial Sitting Heart Rate Pre-Dialysis 53 BPM Sitting H eart Rate Post-Dialysis 61 BPM Temperature Pre-Dialysis 98 degF Temperature Post -Dialysis 98.2 degF February 09, 2025 In-Center Hemodialysis Treatment 1538-18-98S42:15:58.000Z 6319-90-73U87:32:58.000Z BP Sitting (Pre-Dialysis) 165/61 mmHg BP Sitting (Post-Dialysis) 141/67 mmHg Concurrent Access: falseAV Fistula Upper Arm (Left) Arterial Sitting Heart Rate Pre-Dialysis 57 BPM Sitting H eart Rate Post-Dialysis 59 BPM Temperature Pre-Dialysis 98 degF Temperature Post -Dialysis 97 degF February 06, 2025 In-Center Hemodialysis Treatment 2249-94-61M57:06:09.000Z 6052-42-06V15:38:09.000Z BP Sitting (Pre-Dialysis) 169/67 mmHg BP Sitting (Post-Dialysis) 105/82 mmHg Concurrent Access: falseAV Fistula Upper Arm (Left) Arterial Sitting Heart Rate Pre-Dialysis 53 BPM Sitting H eart Rate Post-Dialysis 78 BPM Temperature Pre-Dialysis 98.2 degF Temperature Post -Dialysis 97 degF February 04, 2025 In-Center Hemodialysis Treatment 5137-67-18V68:25:37.000Z 9490-88-28Q75:24:37.000Z BP Sitting (Pre-Dialysis) 147/51 mmHg BP Sitting (Post-Dialysis) 130/84 mmHg Concurrent Access: falseAV Fistula Upper Arm (Left) Arterial Sitting Heart Rate Pre-Dialysis 53 BPM Sitting H eart Rate Post-Dialysis 52 BPM Temperature Pre-Dialysis 98 degF Temperature Post -Dialysis 98 degF February 02, 2025 In-Center Hemodialysis Treatment 5429-31-07M91:06:04.000Z 0994-69-89F42:26:04.000Z BP Sitting (Pre-Dialysis) 117/51 mmHg BP Sitting (Post-Dialysis) 122/55 mmHg Concurrent Access: falseAV Fistula Upper Arm (Left) Arterial Sitting Heart Rate Pre-Dialysis 58 BPM Sitting H eart Rate Post-Dialysis 59 BPM Temperature Pre-Dialysis 98.2 degF Temperature Post -Dialysis 98 degF January 30, 2025 In-Center Hemodialysis Treatment 2433-90-05W10:32:32.000Z 9705-37-40F74:30:31.000Z BP Sitting (Pre-Dialysis) 146/57 mmHg BP Sitting (Post-Dialysis) 132/50 mmHg Concurrent Access: falseAV Fistula Upper Arm (Left) Arterial Sitting Heart Rate Pre-Dialysis 81 BPM Sitting H eart Rate Post-Dialysis 55 BPM Temperature Pre-Dialysis 98 degF Temperature Post -Dialysis 98 degF January 28, 2025 In-Center Hemodialysis Treatment 4743-07-31I28:09:59.000Z 1136-82-21G97:07:59.000Z BP Sitting (Pre-Dialysis) 150/60 mmHg BP Sitting (Post-Dialysis) 115/55 mmHg Concurrent Access: falseAV Fistula Upper Arm (Left) Arterial Sitting Heart Rate Pre-Dialysis 55 BPM Sitting H eart Rate Post-Dialysis 56 BPM Temperature Pre-Dialysis 97.9 degF Temperature Post -Dialysis 98 degF January 26, 2025 In-Center Hemodialysis Treatment 4362-88-96S30:23:08.000Z 2912-52-49B42:59:26.000Z BP Sitting (Pre-Dialysis) 142/59 mmHg BP Sitting (Post-Dialysis) 116/74 mmHg Concurrent Access: falseAV Fistula Upper Arm (Left) Arterial Sitting Heart Rate Pre-Dialysis 56 BPM Sitting H eart Rate Post-Dialysis 66 BPM Temperature Pre-Dialysis 98 degF Temperature Post -Dialysis 97.6 degF January 23, 2025 In-Center Hemodialysis Treatment 4845-59-94R49:57:19.000Z 4930-88-73X82:27:19.000Z BP Sitting (Pre-Dialysis) 124/48 mmHg BP Sitting (Post-Dialysis) 122/52 mmHg Concurrent Access: falseAV Fistula Upper Arm (Left) Arterial Sitting Heart Rate Pre-Dialysis 55 BPM Sitting H eart Rate Post-Dialysis 55 BPM Temperature Pre-Dialysis 97.8 degF Temperature Post -Dialysis 97.5 degF January 21, 2025 In-Center Hemodialysis Treatment 7238-15-20U77:30:00.000Z 8141-91-41E57:05:47.000Z BP Sitting (Pre-Dialysis) 156/55 mmHg BP Sitting (Post-Dialysis) 132/78 mmHg Concurrent Access: falseAV Fistula Upper Arm (Left) Arterial Sitting Heart Rate Pre-Dialysis 61 BPM Sitting H eart Rate Post-Dialysis 66 BPM Temperature Pre-Dialysis 97.3 degF Temperature Post -Dialysis 97.8 degF January 19, 2025 In-Center Hemodialysis Treatment 3853-18-01S99:24:14.000Z 9326-73-45O56:02:14.000Z BP Sitting (Pre-Dialysis) 176/71 mmHg BP Sitting (Post-Dialysis) 142/78 mmHg Concurrent Access: falseAV Fistula Upper Arm (Left) Arterial Sitting Heart Rate Pre-Dialysis 65 BPM Sitting H eart Rate Post-Dialysis 66 BPM Temperature Pre-Dialysis 98 degF Temperature Post -Dialysis 97.4 degF January 16, 2025 In-Center Hemodialysis Treatment 6409-67-28A31:14:26.000Z 7645-47-87X95:38:25.000Z BP Sitting (Pre-Dialysis) 172/69 mmHg BP Sitting (Post-Dialysis) 135/78 mmHg Concurrent Access: falseAV Fistula Upper Arm (Left) Arterial Sitting Heart Rate Pre-Dialysis 55 BPM Sitting H eart Rate Post-Dialysis 66 BPM Temperature Pre-Dialysis 98 degF Temperature Post -Dialysis 97.6 degF January 14, 2025 In-Center Hemodialysis Treatment 1835-51-32I10:23:53.000Z 8878-28-48J27:51:53.000Z BP Sitting (Pre-Dialysis) 159/64 mmHg BP Sitting (Post-Dialysis) 117/69 mmHg Concurrent Access: falseAV Fistula Upper Arm (Left) Arterial Sitting Heart Rate Pre-Dialysis 55 BPM Sitting H eart Rate Post-Dialysis 63 BPM Temperature Pre-Dialysis 98 degF Temperature Post -Dialysis 97.3 degF January 12, 2025 In-Center Hemodialysis Treatment 7226-21-47L56:12:21.000Z 7743-67-25C13:44:20.000Z BP Sitting (Pre-Dialysis) 133/87 mmHg BP Sitting (Post-Dialysis) 133/68 mmHg Concurrent Access: falseAV Fistula Upper Arm (Left) Arterial Sitting Heart Rate Pre-Dialysis 63 BPM Sitting H eart Rate Post-Dialysis 59 BPM Temperature Pre-Dialysis 98 degF Temperature Post -Dialysis 98 degF January 09, 2025 In-Center Hemodialysis Treatment 6409-46-30K27:12:35.000Z 1474-56-34Z47:54:35.000Z BP Sitting (Pre-Dialysis) 156/62 mmHg BP Sitting (Post-Dialysis) 160/57 mmHg Concurrent Access: falseAV Fistula Upper Arm (Left) Arterial Sitting Heart Rate Pre-Dialysis 57 BPM Sitting H eart Rate Post-Dialysis 58 BPM Temperature Pre-Dialysis 97.8 degF Temperature Post -Dialysis 97.8 degF January 07, 2025 In-Center Hemodialysis Treatment 0199-02-71X75:42:03.000Z 9479-91-08S56:17:13.000Z BP Sitting (Pre-Dialysis) 170/78 mmHg BP Sitting (Post-Dialysis) 158/77 mmHg Concurrent Access: falseAV Fistula Upper Arm (Left) Arterial Sitting Heart Rate Pre-Dialysis 52 BPM Sitting H eart Rate Post-Dialysis 59 BPM Temperature Pre-Dialysis 98 degF Temperature Post -Dialysis 98 degF January 05, 2025 In-Center Hemodialysis Treatment 0490-08-81B86:55:30.000Z 6359-27-74Q16:20:30.000Z BP Sitting (Pre-Dialysis) 180/73 mmHg BP Sitting (Post-Dialysis) 165/77 mmHg Concurrent Access: falseAV Fistula Upper Arm (Left) Arterial Sitting Heart Rate Pre-Dialysis 55 BPM Sitting H eart Rate Post-Dialysis 57 BPM Temperature Pre-Dialysis 98.2 degF Temperature Post -Dialysis 98 degF January 02, 2025 In-Center Hemodialysis Treatment 2854-66-36C04:14:00.000Z 6436-46-23L57:46:41.000Z BP Sitting (Pre-Dialysis) 139/57 mmHg BP Sitting (Post-Dialysis) 150/60 mmHg Concurrent Access: falseAV Fistula Upper Arm (Left) Arterial Sitting Heart Rate Pre-Dialysis 56 BPM Sitting H eart Rate Post-Dialysis 56 BPM Temperature Pre-Dialysis 97.7 degF Temperature Post -Dialysis 98 degF December 31, 2024 In-Center Hemodialysis Treatment 7772-55-76V35:26:08.000Z 7431-81-36S73:55:08.000Z BP Sitting (Pre-Dialysis) 159/74 mmHg BP Sitting (Post-Dialysis) 135/88 mmHg Concurrent Access: falseAV Fistula Upper Arm (Left) Arterial Sitting Heart Rate Pre-Dialysis 51 BPM Sitting H eart Rate Post-Dialysis 65 BPM Temperature Pre-Dialysis 98 degF Temperature Post -Dialysis 98 degF December 29, 2024 In-Center Hemodialysis Treatment 4649-51-09G11:11:36.000Z 8147-28-35C10:38:35.000Z BP Sitting (Pre-Dialysis) 140/65 mmHg BP Sitting (Post-Dialysis) 150/68 mmHg Concurrent Access: falseAV Fistula Upper Arm (Left) Arterial Sitting Heart Rate Pre-Dialysis 58 BPM Sitting H eart Rate Post-Dialysis 86 BPM Temperature Pre-Dialysis 96.8 degF Temperature Post -Dialysis 98 degF 2024 In-Center Hemodialysis Treatment 7838-22-67M08:18:47.000Z 9451-73-97A44:45:46.000Z BP Sitting (Pre-Dialysis) 144/56 mmHg BP Sitting (Post-Dialysis) 162/54 mmHg Concurrent Access: falseAV Fistula Upper Arm (Left) Arterial Sitting Heart Rate Pre-Dialysis 60 BPM Sitting H eart Rate Post-Dialysis 62 BPM Temperature Pre-Dialysis 97.6 degF Temperature Post -Dialysis 98 degF December 24, 2024 In-Center Hemodialysis Treatment 4069-78-03A47:10:00.000Z 1068-89-30W41:49:14.000Z BP Sitting (Pre-Dialysis) 163/49 mmHg BP Sitting (Post-Dialysis) 131/58 mmHg Concurrent Access: falseAV Fistula Upper Arm (Left) Arterial Sitting Heart Rate Pre-Dialysis 58 BPM Sitting H eart Rate Post-Dialysis 56 BPM Temperature Pre-Dialysis 97.7 degF Temperature Post -Dialysis 97.5 degF December 22, 2024 In-Center Hemodialysis Treatment 7815-83-43J51:11:00.000Z 6512-22-95A69:11:00.000Z BP Sitting (Pre-Dialysis) 132/59 mmHg BP Sitting (Post-Dialysis) 175/62 mmHg Concurrent Access: falseAV Fistula Upper Arm (Left) Arterial Sitting Heart Rate Pre-Dialysis 58 BPM Sitting H eart Rate Post-Dialysis 58 BPM Temperature Pre-Dialysis 97.2 degF Temperature Post -Dialysis 97.3 degF December 19, 2024 In-Center Hemodialysis Treatment 3941-97-79R38:24:00.000Z 8606-10-79E22:58:00.000Z BP Sitting (Pre-Dialysis) 137/49 mmHg BP Sitting (Post-Dialysis) 161/64 mmHg Concurrent Access: falseAV Fistula Upper Arm (Left) Arterial Sitting Heart Rate Pre-Dialysis 55 BPM Sitting H eart Rate Post-Dialysis 58 BPM Temperature Pre-Dialysis 97.7 degF Temperature Post -Dialysis 98 degF December 17, 2024 In-Center Hemodialysis Treatment 4840-46-16M44:39:00.000Z 1660-78-48W16:00:00.000Z BP Sitting (Pre-Dialysis) 170/58 mmHg BP Sitting (Post-Dialysis) 193/97 mmHg Concurrent Access: falseAV Fistula Upper Arm (Left) Arterial Sitting Heart Rate Pre-Dialysis 58 BPM Sitting H eart Rate Post-Dialysis 60 BPM Temperature Pre-Dialysis 97.2 degF Temperature Post -Dialysis 98 degF December 15, 2024 In-Center Hemodialysis Treatment 2291-58-01G17:06:00.000Z 8062-22-77M81:55:19.000Z BP Sitting (Pre-Dialysis) 149/48 mmHg BP Sitting (Post-Dialysis) 147/59 mmHg Concurrent Access: falseAV Fistula Upper Arm (Left) Arterial Sitting Heart Rate Pre-Dialysis 51 BPM Sitting H eart Rate Post-Dialysis 67 BPM Temperature Pre-Dialysis 97.5 degF Temperature Post -Dialysis 98 degF December 10, 2024 In-Center Hemodialysis Treatment 1039-84-66O90:26:00.000Z 0818-09-55J40:19:43.000Z BP Sitting (Pre-Dialysis) 187/68 mmHg BP Sitting (Post-Dialysis) 144/58 mmHg Concurrent Access: falseAV Fistula Upper Arm (Left) Arterial Sitting Heart Rate Pre-Dialysis 58 BPM Sitting H eart Rate Post-Dialysis 66 BPM Temperature Pre-Dialysis 97.4 degF Temperature Post -Dialysis 98 degF December 08, 2024 In-Center Hemodialysis Treatment 6150-10-50Y42:10:00.000Z 1086-99-20U74:43:11.000Z BP Sitting (Pre-Dialysis) 173/46 mmHg BP Sitting (Post-Dialysis) 157/42 mmHg Concurrent Access: falseAV Fistula Upper Arm (Left) Arterial Sitting Heart Rate Pre-Dialysis 50 BPM Sitting H eart Rate Post-Dialysis 51 BPM Temperature Pre-Dialysis 97.9 degF Temperature Post -Dialysis 97.8 degF December 05, 2024 In-Center Hemodialysis Treatment 6541-61-46Q06:08:00.000Z 2297-54-07D17:40:02.000Z BP Sitting (Pre-Dialysis) 144/55 mmHg BP Sitting (Post-Dialysis) 194/78 mmHg Concurrent Access: falseAV Fistula Upper Arm (Left) Arterial Sitting Heart Rate Pre-Dialysis 57 BPM Sitting H eart Rate Post-Dialysis 56 BPM Temperature Pre-Dialysis 97.5 degF Temperature Post -Dialysis 98 degF December 03, 2024 In-Center Hemodialysis Treatment 7338-49-12D75:28:00.000Z 4072-36-95U31:52:21.000Z BP Sitting (Pre-Dialysis) 175/65 mmHg BP Sitting (Post-Dialysis) 133/55 mmHg Concurrent Access: falseAV Fistula Upper Arm (Left) Arterial Sitting Heart Rate Pre-Dialysis 55 BPM Sitting H eart Rate Post-Dialysis 54 BPM Temperature Pre-Dialysis 98 degF Temperature Post -Dialysis 97.4 degF [facility] 7447-33-38W77:11:07.000Z 3734-61-77P96:49:06.000Z BP Sitting (Pre-Dialysis) 159/65 mmHg BP Sitting (Post-Dialysis) 111/64 mmHg Concurrent Access: falseAV Fistula Upper Arm (Left) Arterial Sitting Heart Rate Pre-Dialysis 59 BPM Sitting H eart Rate Post-Dialysis 54 BPM Temperature Pre-Dialysis 98 degF Temperature Post -Dialysis 98 degF [facility] 29[facility] 9238-02-97V60:26:03.000Z 5861-60-67D10:20:36.000Z BP Sitting (Pre-Dialysis) 167/62 mmHg BP Sitting (Post-Dialysis) 159/59 mmHg Concurrent Access: falseAV Fistula Upper Arm (Left) Arterial Sitting Heart Rate Pre-Dialysis 54 BPM Sitting H eart Rate Post-Dialysis 53 BPM Temperature Pre-Dialysis 98.2 degF Temperature Post -Dialysis 98.2 degF [facility] 9637-00-93U67:26:20.000Z 0754-57-23J95:52:20.000Z BP Sitting (Pre-Dialysis) 181/67 mmHg BP Sitting (Post-Dialysis) 178/71 mmHg Concurrent Access: falseAV Fistula Upper Arm (Left) Arterial Sitting Heart Rate Pre-Dialysis 59 BPM Sitting H eart Rate Post-Dialysis 58 BPM Temperature Pre-Dialysis 97.4 degF Temperature Post -Dialysis 98.2 degF November 24, 2024 In-Center Hemodialysis Treatment 5297-21-15O82:09:11.000Z 8920-33-15M82:42:12.000Z BP Sitting (Pre-Dialysis) 155/62 mmHg BP Sitting (Post-Dialysis) 153/99 mmHg Concurrent Access: falseAV Fistula Upper Arm (Left) Arterial Sitting Heart Rate Pre-Dialysis 59 BPM Sitting H eart Rate Post-Dialysis 64 BPM Temperature Pre-Dialysis 98 degF Temperature Post -Dialysis 98.2 degF November 21, 2024 In-Center Hemodialysis Treatment 5573-37-63F54:05:22.000Z 6888-47-09I88:39:23.000Z BP Sitting (Pre-Dialysis) 155/73 mmHg BP Sitting (Post-Dialysis) 163/63 mmHg Concurrent Access: falseAV Fistula Upper Arm (Left) Arterial Sitting Heart Rate Pre-Dialysis 56 BPM Sitting H eart Rate Post-Dialysis 54 BPM Temperature Pre-Dialysis 98 degF Temperature Post -Dialysis 98 degF November 19, 2024 In-Center Hemodialysis Treatment 0814-32-93F59:13:12.000Z 0792-95-17S40:48:12.000Z BP Sitting (Pre-Dialysis) 146/55 mmHg BP Sitting (Post-Dialysis) 135/80 mmHg Concurrent Access: falseAV Fistula Upper Arm (Left) Arterial Sitting Heart Rate Pre-Dialysis 48 BPM Sitting H eart Rate Post-Dialysis 61 BPM Temperature Pre-Dialysis 98 degF Temperature Post -Dialysis 97 degF November 17, 2024 In-Center Hemodialysis Treatment 3168-75-16R79:12:40.000Z 5452-04-04Q23:43:40.000Z BP Sitting (Pre-Dialysis) 126/73 mmHg BP Sitting (Post-Dialysis) 159/59 mmHg Concurrent Access: falseAV Fistula Upper Arm (Left) Arterial Sitting Heart Rate Pre-Dialysis 53 BPM Sitting H eart Rate Post-Dialysis 55 BPM Temperature Pre-Dialysis 98 degF Temperature Post -Dialysis 98.2 degF November 14, 2024 In-Center Hemodialysis Treatment 3570-75-96K51:21:50.000Z 8783-99-64O33:50:50.000Z BP Sitting (Pre-Dialysis) 126/48 mmHg BP Sitting (Post-Dialysis) 140/58 mmHg Concurrent Access: falseAV Fistula Upper Arm (Left) Arterial Sitting Heart Rate Pre-Dialysis 52 BPM Sitting H eart Rate Post-Dialysis 54 BPM Temperature Pre-Dialysis 97.8 degF Temperature Post -Dialysis 98 degF November 12, 2024 In-Center Hemodialysis Treatment 3459-21-23M41:31:18.000Z 8276-77-72K41:58:17.000Z BP Sitting (Pre-Dialysis) 133/83 mmHg BP Sitting (Post-Dialysis) 132/39 mmHg Concurrent Access: falseAV Fistula Upper Arm (Left) Arterial Sitting Heart Rate Pre-Dialysis 71 BPM Sitting H eart Rate Post-Dialysis 49 BPM Temperature Pre-Dialysis 97.1 degF Temperature Post -Dialysis 98 degF November 10, 2024 In-Center Hemodialysis Treatment 6660-07-73C54:20:45.000Z 2106-57-39J11:40:45.000Z BP Sitting (Pre-Dialysis) 146/56 mmHg BP Sitting (Post-Dialysis) 164/56 mmHg Concurrent Access: falseAV Fistula Upper Arm (Left) Arterial Sitting Heart Rate Pre-Dialysis 53 BPM Sitting H eart Rate Post-Dialysis 49 BPM Temperature Pre-Dialysis 98 degF Temperature Post -Dialysis 98 degF November 07, 2024 In-Center Hemodialysis Treatment 0863-77-77Y34:12:56.000Z 5362-55-61V70:04:57.000Z BP Sitting (Pre-Dialysis) 171/70 mmHg BP Sitting (Post-Dialysis) 153/55 mmHg Concurrent Access: falseAV Fistula Upper Arm (Left) Arterial Sitting Heart Rate Pre-Dialysis 60 BPM Sitting H eart Rate Post-Dialysis 59 BPM Temperature Pre-Dialysis 97.6 degF November 05, 2024 In-Center Hemodialysis Treatment 9427-11-30P10:06:24.000Z 4241-86-01R25:36:23.000Z BP Sitting (Pre-Dialysis) 148/56 mmHg BP Sitting (Post-Dialysis) 153/50 mmHg Concurrent Access: falseAV Fistula Upper Arm (Left) Arterial Sitting Heart Rate Pre-Dialysis 63 BPM Sitting H eart Rate Post-Dialysis 59 BPM Temperature Pre-Dialysis 96.7 degF Temperature Post -Dialysis 98 degF November 03, 2024 In-Center Hemodialysis Treatment 6946-09-02D09:12:52.000Z 6717-39-09R19:34:51.000Z BP Sitting (Pre-Dialysis) 147/76 mmHg BP Sitting (Post-Dialysis) 172/52 mmHg Concurrent Access: falseAV Fistula Upper Arm (Left) Arterial Sitting Heart Rate Pre-Dialysis 64 BPM Sitting H eart Rate Post-Dialysis 68 BPM Temperature Pre-Dialysis 98 degF Temperature Post -Dialysis 98 degF October 31, 2024 In-Center Hemodialysis Treatment 4588-55-16F68:06:03.000Z 7529-31-72Y27:24:03.000Z BP Sitting (Pre-Dialysis) 161/63 mmHg BP Sitting (Post-Dialysis) 154/59 mmHg Concurrent Access: falseAV Fistula Upper Arm (Left) Arterial Sitting Heart Rate Pre-Dialysis 76 BPM Sitting H eart Rate Post-Dialysis 69 BPM Temperature Pre-Dialysis 97.4 degF Temperature Post -Dialysis 97.2 degF October 29, 2024 InCenter Hemodialysis Treatment 2825-95-96F44:16:30.000Z 8774-64-45V28:47:31.000Z BP Sitting (Pre-Dialysis) 176/67 mmHg BP Sitting (Post-Dialysis) 150/60 mmHg Concurrent Access: falseAV Fistula Upper Arm (Left) Arterial Sitting Heart Rate Pre-Dialysis 59 BPM Sitting H eart Rate Post-Dialysis 58 BPM Temperature Pre-Dialysis 97.5 degF Temperature Post -Dialysis 97 degF [facility]-66-66J95:04:00.000Z 1447-97-55N90:32:04.000Z BP Sitting (Pre-Dialysis) 167/102 mmHg BP Sitting (Post-Dialysis) 147/53 mmHg Concurrent Access: falseAV Fistula Upper Arm (Left) Arterial Sitting Heart Rate Pre-Dialysis 67 BPM Sitting H eart Rate Post-Dialysis 55 BPM Temperature Pre-Dialysis 97.5 degF Temperature Post -Dialysis 97.9 degF October 24, 2024 In-Center Hemodialysis Treatment 8865-19-02B30:23:15.000Z 8516-45-89U57:30:15.000Z BP Sitting (Pre-Dialysis) 167/76 mmHg BP Sitting (Post-Dialysis) 155/61 mmHg Concurrent Access: falseAV Fistula Upper Arm (Left) Arterial Sitting Heart Rate Pre-Dialysis 56 BPM Sitting H eart Rate Post-Dialysis 54 BPM Temperature Pre-Dialysis 97.3 degF Temperature Post -Dialysis 98 degF October 22, 2024 In-Center Hemodialysis Treatment 9296-91-41P59:04:43.000Z 2051-55-87N38:30:42.000Z BP Sitting (Pre-Dialysis) 159/60 mmHg BP Sitting (Post-Dialysis) 149/54 mmHg Concurrent Access: falseAV Fistula Upper Arm (Left) Arterial Sitting Heart Rate Pre-Dialysis 57 BPM Sitting H eart Rate Post-Dialysis 57 BPM Temperature Pre-Dialysis 97.5 degF Temperature Post -Dialysis 97.7 degF October 20, 2024 In-Center Hemodialysis Treatment 5427-11-39R18:00:00.000Z 9644-62-77I73:15:10.000Z BP Sitting (Pre-Dialysis) 146/56 mmHg BP Sitting (Post-Dialysis) 186/78 mmHg Concurrent Access: falseAV Fistula Upper Arm (Left) Arterial Sitting Heart Rate Pre-Dialysis 62 BPM Sitting H eart Rate Post-Dialysis 69 BPM Temperature Pre-Dialysis 97.8 degF Temperature Post -Dialysis 98.2 degF October 17, 2024 In-Center Hemodialysis Treatment 3607-88-51R18:18:29.000Z 7670-45-30F05:51:30.000Z BP Sitting (Pre-Dialysis) 171/69 mmHg BP Sitting (Post-Dialysis) 172/42 mmHg Concurrent Access: falseAV Fistula Upper Arm (Left) Arterial Sitting Heart Rate Pre-Dialysis 64 BPM Sitting H eart Rate Post-Dialysis 60 BPM Temperature Pre-Dialysis 98 degF Temperature Post -Dialysis 98 degF October 15, 2024 In-Center Hemodialysis Treatment 3564-61-16I61:58:00.000Z 7846-35-20D69:31:57.000Z BP Sitting (Pre-Dialysis) 147/68 mmHg BP Sitting (Post-Dialysis) 165/61 mmHg Concurrent Access: falseAV Fistula Upper Arm (Left) Arterial Sitting Heart Rate Pre-Dialysis 64 BPM Sitting H eart Rate Post-Dialysis 55 BPM Temperature Pre-Dialysis 97.9 degF Temperature Post -Dialysis 98 degF October 13, 2024 In-Center Hemodialysis Treatment 9038-08-69W39:47:27.000Z 0866-61-48W68:15:26.000Z BP Sitting (Pre-Dialysis) 152/75 mmHg BP Sitting (Post-Dialysis) 161/62 mmHg Concurrent Access: falseAV Fistula Upper Arm (Left) Arterial Sitting Heart Rate Pre-Dialysis 61 BPM Sitting H eart Rate Post-Dialysis 55 BPM Temperature Pre-Dialysis 97.4 degF Temperature Post -Dialysis 97.6 degF October 10, 2024 In-Center Hemodialysis Treatment 1732-89-81Y00:04:38.000Z 7097-68-53I01:30:37.000Z BP Sitting (Pre-Dialysis) 151/62 mmHg BP Sitting (Post-Dialysis) 163/68 mmHg Concurrent Access: falseAV Fistula Upper Arm (Left) Arterial Sitting Heart Rate Pre-Dialysis 63 BPM Sitting H eart Rate Post-Dialysis 62 BPM Temperature Pre-Dialysis 98 degF Temperature Post -Dialysis 98.2 degF October 08, 2024 In-Center Hemodialysis Treatment 1877-76-53V74:41:05.000Z 0526-17-50K98:04:05.000Z BP Sitting (Pre-Dialysis) 155/79 mmHg BP Sitting (Post-Dialysis) 146/58 mmHg Concurrent Access: falseAV Fistula Upper Arm (Left) Arterial Sitting Heart Rate Pre-Dialysis 58 BPM Sitting H eart Rate Post-Dialysis 66 BPM Temperature Pre-Dialysis 98 degF Temperature Post -Dialysis 98 degF October 06, 2024 In-Center Hemodialysis Treatment 5663-18-32Y93:00:53.000Z 8175-53-07N26:34:52.000Z BP Sitting (Pre-Dialysis) 191/76 mmHg BP Sitting (Post-Dialysis) 140/111 mmHg Concurrent Access: falseAV Fistula Upper Arm (Left) Arterial Sitting Heart Rate Pre-Dialysis 73 BPM Sitting H eart Rate Post-Dialysis 67 BPM Temperature Pre-Dialysis 97.5 degF Temperature Post -Dialysis 98 degF October 03, 2024 In-Center Hemodialysis Treatment 0498-04-82U58:59:27.000Z 3194-41-97H94:37:28.000Z BP Sitting (Pre-Dialysis) 169/54 mmHg BP Sitting (Post-Dialysis) 169/71 mmHg Concurrent Access: falseAV Fistula Upper Arm (Left) Arterial Sitting Heart Rate Pre-Dialysis 57 BPM Sitting H eart Rate Post-Dialysis 68 BPM Temperature Pre-Dialysis 97.8 degF Temperature Post -Dialysis 98.2 degF October 01, 2024 In-Center Hemodialysis Treatment 0544-43-86T49:56:25.000Z 7452-34-77A26:06:26.000Z BP Sitting (Pre-Dialysis) 181/67 mmHg BP Sitting (Post-Dialysis) 153/92 mmHg Concurrent Access: falseAV Fistula Upper Arm (Left) Arterial Sitting Heart Rate Pre-Dialysis 65 BPM Sitting H eart Rate Post-Dialysis 59 BPM Temperature Pre-Dialysis 97.8 degF Temperature Post -Dialysis 98.2 degF September 29, 2024 In-Center Hemodialysis Treatment 7918-78-91V59:54:53.000Z 0932-50-22L57:23:52.000Z BP Sitting (Pre-Dialysis) 173/54 mmHg BP Sitting (Post-Dialysis) 131/97 mmHg Concurrent Access: falseAV Fistula Upper Arm (Left) Arterial Sitting Heart Rate Pre-Dialysis 64 BPM Sitting H eart Rate Post-Dialysis 59 BPM Temperature Pre-Dialysis 97.6 degF Temperature Post -Dialysis 98 degF September 26, 2024 In-Center Hemodialysis Treatment 8677-75-14B27:07:04.000Z 9617-07-45O09:39:04.000Z BP Sitting (Pre-Dialysis) 148/66 mmHg BP Sitting (Post-Dialysis) 153/55 mmHg Concurrent Access: falseAV Fistula Upper Arm (Left) Arterial Sitting Heart Rate Pre-Dialysis 66 BPM Sitting H eart Rate Post-Dialysis 73 BPM Temperature Pre-Dialysis 98 degF Temperature Post -Dialysis 98.1 degF September 24, 2024 In-Center Hemodialysis Treatment 9062-65-41P89:00:32.000Z 3432-44-92N68:33:31.000Z BP Sitting (Pre-Dialysis) 165/59 mmHg BP Sitting (Post-Dialysis) 152/56 mmHg Concurrent Access: falseAV Fistula Upper Arm (Left) Arterial Sitting Heart Rate Pre-Dialysis 50 BPM Sitting H eart Rate Post-Dialysis 52 BPM Temperature Pre-Dialysis 98.2 degF Temperature Post -Dialysis 98.2 degF September 22, 2024 In-Center Hemodialysis Treatment 7509-09-03C45:54:59.000Z 3006-25-31W63:25:59.000Z BP Sitting (Pre-Dialysis) 140/57 mmHg BP Sitting (Post-Dialysis) 169/43 mmHg Concurrent Access: falseAV Fistula Upper Arm (Left) Arterial Sitting Heart Rate Pre-Dialysis 81 BPM Sitting H eart Rate Post-Dialysis 52 BPM Temperature Pre-Dialysis 97.6 degF Temperature Post -Dialysis 98 degF September 17, 2024 In-Center Hemodialysis Treatment 0936-64-55W72:01:11.000Z 5083-93-48F82:31:11.000Z BP Sitting (Pre-Dialysis) 167/65 mmHg BP Sitting (Post-Dialysis) 153/52 mmHg Concurrent Access: falseAV Fistula Upper Arm (Left) Arterial Sitting Heart Rate Pre-Dialysis 77 BPM Sitting H eart Rate Post-Dialysis 70 BPM Temperature Pre-Dialysis 98 degF Temperature Post -Dialysis 97.8 degF September 15, 2024 In-Center Hemodialysis Treatment 1208-98-87O79:03:58.000Z 0908-01-96J38:34:59.000Z BP Sitting (Pre-Dialysis) 176/54 mmHg BP Sitting (Post-Dialysis) 160/71 mmHg Concurrent Access: falseAV Fistula Upper Arm (Left) Arterial Sitting Heart Rate Pre-Dialysis 59 BPM Sitting H eart Rate Post-Dialysis 71 BPM Temperature Pre-Dialysis 98.1 degF Temperature Post -Dialysis 98 degF September 12, 2024 In-Center Hemodialysis Treatment 5351-12-81Q09:10:00.000Z 5370-92-09S90:43:20.000Z BP Sitting (Pre-Dialysis) 164/73 mmHg BP Sitting (Post-Dialysis) 134/43 mmHg Concurrent Access: falseAV Fistula Upper Arm (Left) Arterial Sitting Heart Rate Pre-Dialysis 58 BPM Sitting H eart Rate Post-Dialysis 64 BPM Temperature Pre-Dialysis 98.1 degF Temperature Post -Dialysis 98 degF September 10, 2024 In-Center Hemodialysis Treatment 2975-96-98R98:57:38.000Z 3219-85-63W57:22:37.000Z BP Sitting (Pre-Dialysis) 143/60 mmHg BP Sitting (Post-Dialysis) 127/57 mmHg Concurrent Access: falseAV Fistula Upper Arm (Left) Arterial Sitting Heart Rate Pre-Dialysis 57 BPM Sitting H eart Rate Post-Dialysis 54 BPM Temperature Pre-Dialysis 98 degF Temperature Post -Dialysis 98.2 degF September 08, 2024 In-Center Hemodialysis Treatment 8857-56-49G87:17:05.000Z 7652-32-42H90:59:05.000Z BP Sitting (Pre-Dialysis) 165/69 mmHg BP Sitting (Post-Dialysis) 140/49 mmHg Concurrent Access: falseAV Fistula Upper Arm (Left) Arterial Sitting Heart Rate Pre-Dialysis 52 BPM Sitting H eart Rate Post-Dialysis 62 BPM Temperature Pre-Dialysis 98 degF Temperature Post -Dialysis 98 degF September 01, 2024 In-Center Hemodialysis Treatment 0412-54-53K28:03:11.000Z 6194-34-89K37:37:11.000Z BP Sitting (Pre-Dialysis) 190/58 mmHg BP Sitting (Post-Dialysis) 172/68 mmHg Concurrent Access: falseAV Fistula Upper Arm (Left) Arterial Sitting Heart Rate Pre-Dialysis 66 BPM Sitting H eart Rate Post-Dialysis 69 BPM Temperature Pre-Dialysis 98 degF Temperature Post -Dialysis 98 degF August 27, 2024 In-Center Hemodialysis Treatment 5842-14-18Y87:52:00.000Z 0993-63-10Q55:04:50.000Z BP Sitting (Pre-Dialysis) 189/69 mmHg BP Sitting (Post-Dialysis) 154/38 mmHg Concurrent Access: falseAV Fistula Upper Arm (Left) Arterial Sitting Heart Rate Pre-Dialysis 55 BPM Sitting H eart Rate Post-Dialysis 69 BPM Temperature Pre-Dialysis 97.4 degF Temperature Post -Dialysis 97.4 degF August 25, 2024 In-Center Hemodialysis Treatment 3163-14-69V30:59:18.000Z 6436-70-51H30:32:17.000Z BP Sitting (Pre-Dialysis) 188/62 mmHg BP Sitting (Post-Dialysis) 147/70 mmHg Concurrent Access: falseAV Fistula Upper Arm (Left) Arterial Sitting Heart Rate Pre-Dialysis 54 BPM Sitting H eart Rate Post-Dialysis 68 BPM Temperature Pre-Dialysis 98 degF Temperature Post -Dialysis 98.2 degF August 22, 2024 In-Center Hemodialysis Treatment 9382-91-58Y25:17:26.000Z 4872-97-82W28:30:27.000Z BP Sitting (Pre-Dialysis) 170/71 mmHg BP Sitting (Post-Dialysis) 188/68 mmHg Concurrent Access: falseAV Fistula Upper Arm (Left) Arterial Sitting Heart Rate Pre-Dialysis 55 BPM Sitting H eart Rate Post-Dialysis 56 BPM Temperature Pre-Dialysis 98 degF Temperature Post -Dialysis 97.7 degF August 20, 2024 In-Center Hemodialysis Treatment 8855-83-05J16:14:40.000Z 9707-07-89A18:48:40.000Z BP Sitting (Pre-Dialysis) 174/66 mmHg BP Sitting (Post-Dialysis) 142/48 mmHg Concurrent Access: falseAV Fistula Upper Arm (Left) Arterial Sitting Heart Rate Pre-Dialysis 55 BPM Sitting H eart Rate Post-Dialysis 60 BPM Temperature Pre-Dialysis 97.8 degF Temperature Post -Dialysis 97.4 degF August 18, 2024 In-Center Hemodialysis Treatment 7726-19-45Z32:49:00.000Z 8881-68-82R80:20:00.000Z BP Sitting (Pre-Dialysis) 201/69 mmHg BP Sitting (Post-Dialysis) 159/56 mmHg Concurrent Access: falseAV Fistula Upper Arm (Left) Arterial Sitting Heart Rate Pre-Dialysis 58 BPM August 15, 2024 In-Center Hemodialysis Treatment 1643-03-29E66:19:52.000Z 5083-83-41W94:56:52.000Z BP Sitting (Pre-Dialysis) 184/71 mmHg BP Sitting (Post-Dialysis) 189/71 mmHg Concurrent Access: falseAV Fistula Upper Arm (Left) Arterial Sitting Heart Rate Pre-Dialysis 57 BPM Sitting H eart Rate Post-Dialysis 61 BPM Temperature Pre-Dialysis 97.7 degF Temperature Post -Dialysis 97.3 degF August 13, 2024 In-Center Hemodialysis Treatment 5759-03-45E46:12:40.000Z 3663-28-99O27:49:40.000Z BP Sitting (Pre-Dialysis) 150/95 mmHg BP Sitting (Post-Dialysis) 131/57 mmHg Concurrent Access: falseAV Fistula Upper Arm (Left) Arterial Sitting Heart Rate Pre-Dialysis 53 BPM Sitting H eart Rate Post-Dialysis 56 BPM Temperature Pre-Dialysis 98.2 degF Temperature Post -Dialysis 97.7 degF August 11, 2024 In-Center Hemodialysis Treatment 4365-33-91X26:08:00.000Z 8238-82-65C68:48:07.000Z BP Sitting (Pre-Dialysis) 135/67 mmHg BP Sitting (Post-Dialysis) 159/58 mmHg Concurrent Access: falseAV Fistula Upper Arm (Left) Arterial Sitting Heart Rate Pre-Dialysis 52 BPM Sitting H eart Rate Post-Dialysis 52 BPM Temperature Pre-Dialysis 97.1 degF Temperature Post -Dialysis 97 degF August 08, 2024 In-Center Hemodialysis Treatment 7286-46-49K75:08:00.000Z 7067-51-21O26:40:59.000Z BP Sitting (Pre-Dialysis) 144/58 mmHg BP Sitting (Post-Dialysis) 152/68 mmHg Concurrent Access: falseAV Fistula Upper Arm (Left) Arterial Sitting Heart Rate Pre-Dialysis 53 BPM Sitting H eart Rate Post-Dialysis 56 BPM Temperature Pre-Dialysis 97 degF Temperature Post -Dialysis 97.5 degF August 06, 2024 In-Center Hemodialysis Treatment 7152-01-12L27:54:26.000Z 7155-64-02B55:17:25.000Z BP Sitting (Pre-Dialysis) 119/49 mmHg BP Sitting (Post-Dialysis) 148/58 mmHg Concurrent Access: falseAV Fistula Upper Arm (Left) Arterial Sitting Heart Rate Pre-Dialysis 56 BPM Sitting H eart Rate Post-Dialysis 58 BPM Temperature Pre-Dialysis 98 degF Temperature Post -Dialysis 97.2 degF August 04, 2024 In-Center Hemodialysis Treatment 8310-09-61P24:15:45.000Z 7209-74-27V12:36:45.000Z BP Sitting (Pre-Dialysis) 180/78 mmHg BP Sitting (Post-Dialysis) 147/54 mmHg Concurrent Access: falseAV Fistula Upper Arm (Left) Arterial Sitting Heart Rate Pre-Dialysis 58 BPM Sitting H eart Rate Post-Dialysis 66 BPM Temperature Pre-Dialysis 97.2 degF Temperature Post -Dialysis 98.2 degF August 01, 2024 In-Center Hemodialysis Treatment 1488-61-71V18:36:00.000Z 3215-28-02F00:08:57.000Z BP Sitting (Pre-Dialysis) 173/54 mmHg BP Sitting (Post-Dialysis) 134/53 mmHg Concurrent Access: falseAV Fistula Upper Arm (Left) Arterial Sitting Heart Rate Pre-Dialysis 53 BPM Sitting H eart Rate Post-Dialysis 50 BPM Temperature Pre-Dialysis 97.9 degF Temperature Post -Dialysis 98 degF July 30, 2024 In-Center Hemodialysis Treatment 0302-41-01M92:11:30.000Z 0022-17-60L61:11:31.000Z BP Sitting (Pre-Dialysis) 157/62 mmHg BP Sitting (Post-Dialysis) 158/69 mmHg Concurrent Access: falseAV Fistula Upper Arm (Left) Arterial Sitting Heart Rate Pre-Dialysis 54 BPM Sitting H eart Rate Post-Dialysis 78 BPM Temperature Pre-Dialysis 97.4 degF Temperature Post -Dialysis 98.2 degF July 28, 2024 In-Center Hemodialysis Treatment 1639-54-64R45:26:00.000Z 8396-57-48O44:32:21.000Z BP Sitting (Pre-Dialysis) 184/55 mmHg BP Sitting (Post-Dialysis) 144/71 mmHg Concurrent Access: falseAV Fistula Upper Arm (Left) Arterial Sitting Heart Rate Pre-Dialysis 53 BPM BP Standi ng (Post-Dialysis) 155/60 mmHg Temperature Pre-Dialysis 98 degF Sitting Heart Ra te Post-Dialysis 78 BPM Standing Heart Rate Post-Ruba lysis 64 BPM Temperature Post-Dialysis 98 .3 degF July 25, 2024 In-Center Hemodialysis Treatment 9622-04-29B85:30:07.000Z 2054-26-22M01:01:07.000Z BP Sitting (Pre-Dialysis) 157/53 mmHg BP Sitting (Post-Dialysis) 140/51 mmHg Concurrent Access: falseAV Fistula Upper Arm (Left) Arterial Sitting Heart Rate Pre-Dialysis 54 BPM Sitting H eart Rate Post-Dialysis 63 BPM Temperature Pre-Dialysis 97 degF Temperature Post -Dialysis 97.8 degF July 23, 2024 In-Center Hemodialysis Treatment 4652-02-42O76:44:07.000Z 6022-76-96P09:15:06.000Z BP Sitting (Pre-Dialysis) 136/57 mmHg BP Sitting (Post-Dialysis) 151/51 mmHg Concurrent Access: falseAV Fistula Upper Arm (Left) Arterial Sitting Heart Rate Pre-Dialysis 68 BPM Sitting H eart Rate Post-Dialysis 54 BPM Temperature Pre-Dialysis 97.8 degF Temperature Post -Dialysis 97.5 degF July 18, 2024 In-Center Hemodialysis Treatment 6270-21-98L62:43:42.000Z 2539-79-97Q35:13:41.000Z BP Sitting (Pre-Dialysis) 131/47 mmHg BP Sitting (Post-Dialysis) 150/48 mmHg Concurrent Access: falseAV Fistula Upper Arm (Left) Arterial Sitting Heart Rate Pre-Dialysis 58 BPM BP Standing (Post-Dialysis) 152/60 mmHg Temperature Pre-Dialysis 97.2 degF Sitting Heart Ra te Post-Dialysis 50 BPM Standing Heart Rate Post-Ruba lysis 51 BPM Temperature Post-Dialysis 98 .1 degF July 16, 2024 In-Center Hemodialysis Treatment 3446-13-47D94:35:08.000Z 6436-34-84S91:42:09.000Z BP Sitting (Pre-Dialysis) 183/73 mmHg BP Sitting (Post-Dialysis) 156/51 mmHg Concurrent Access: falseAV Fistula Upper Arm (Left) Arterial Sitting Heart Rate Pre-Dialysis 57 BPM Sitting H eart Rate Post-Dialysis 54 BPM Temperature Pre-Dialysis 98 degF Temperature Post -Dialysis 98.2 degF July 14, 2024 In-Center Hemodialysis Treatment 3310-20-13T33:42:00.000Z 0694-36-62U24:13:49.000Z BP Sitting (Pre-Dialysis) 147/84 mmHg BP Sitting (Post-Dialysis) 153/56 mmHg Concurrent Access: falseAV Fistula Upper Arm (Left) Arterial Sitting Heart Rate Pre-Dialysis 69 BPM Sitting H eart Rate Post-Dialysis 58 BPM Temperature Pre-Dialysis 97.2 degF Temperature Post -Dialysis 97.2 degF July 11, 2024 In-Center Hemodialysis Treatment 8743-79-36G57:43:02.000Z 1056-44-51F26:03:02.000Z BP Sitting (Pre-Dialysis) 158/53 mmHg BP Sitting (Post-Dialysis) 163/55 mmHg Concurrent Access: falseAV Fistula Upper Arm (Left) Arterial Sitting Heart Rate Pre-Dialysis 55 BPM Sitting H eart Rate Post-Dialysis 53 BPM Temperature Pre-Dialysis 97.3 degF Temperature Post -Dialysis 97.3 degF July 09, 2024 In-Center Hemodialysis Treatment 7717-08-49Q55:41:46.000Z 0256-07-36B21:24:46.000Z BP Sitting (Pre-Dialysis) 135/54 mmHg BP Sitting (Post-Dialysis) 123/39 mmHg Concurrent Access: falseAV Fistula Upper Arm (Left) Arterial Sitting Heart Rate Pre-Dialysis 54 BPM Sitting H eart Rate Post-Dialysis 55 BPM Temperature Pre-Dialysis 97.7 degF Temperature Post -Dialysis 97.9 degF July 07, 2024 In-Center Hemodialysis Treatment 5945-15-73A91:45:14.000Z 3016-88-20A85:02:14.000Z BP Sitting (Pre-Dialysis) 141/49 mmHg BP Sitting (Post-Dialysis) 152/53 mmHg Concurrent Access: falseAV Fistula Upper Arm (Left) Arterial Sitting Heart Rate Pre-Dialysis 53 BPM Sitting H eart Rate Post-Dialysis 51 BPM Temperature Pre-Dialysis 97.6 degF Temperature Post -Dialysis 97.8 degF July 04, 2024 In-Center Hemodialysis Treatment 4818-67-34E99:13:00.000Z 7347-46-59G30:19:07.000Z BP Sitting (Pre-Dialysis) 150/59 mmHg BP Sitting (Post-Dialysis) 138/44 mmHg Concurrent Access: falseAV Fistula Upper Arm (Left) Arterial Sitting Heart Rate Pre-Dialysis 56 BPM Sitting H eart Rate Post-Dialysis 56 BPM Temperature Pre-Dialysis 97.1 degF July 02, 2024 In-Center Hemodialysis Treatment 7606-26-42W21:36:36.000Z 5300-55-17Y35:20:35.000Z BP Sitting (Pre-Dialysis) 152/58 mmHg BP Sitting (Post-Dialysis) 133/58 mmHg Concurrent Access: falseAV Fistula Upper Arm (Left) Arterial Sitting Heart Rate Pre-Dialysis 59 BPM Sitting H eart Rate Post-Dialysis 88 BPM Temperature Pre-Dialysis 97.2 degF Temperature Post -Dialysis 98.4 degF June 27, 2024 In-Center Hemodialysis Treatment 0872-23-99G35:30:00.000Z 2611-72-20W70:11:01.000Z BP Sitting (Pre-Dialysis) 124/47 mmHg BP Sitting (Post-Dialysis) 141/66 mmHg Concurrent Access: falseAV Fistula Upper Arm (Left) Arterial Sitting Heart Rate Pre-Dialysis 53 BPM Sitting H eart Rate Post-Dialysis 56 BPM Temperature Pre-Dialysis 97.8 degF Temperature Post -Dialysis 98 degF June 25, 2024 In-Center Hemodialysis Treatment 9583-97-76B17:38:00.000Z 0396-13-87N70:06:28.000Z BP Sitting (Pre-Dialysis) 125/58 mmHg BP Sitting (Post-Dialysis) 128/51 mmHg Concurrent Access: falseAV Fistula Upper Arm (Left) Arterial Sitting Heart Rate Pre-Dialysis 66 BPM Sitting H eart Rate Post-Dialysis 61 BPM Temperature Pre-Dialysis 97.5 degF Temperature Post -Dialysis 97.4 degF June 23, 2024 In-Center Hemodialysis Treatment 2987-44-03E13:33:00.000Z 3112-02-91R53:08:31.000Z BP Sitting (Pre-Dialysis) 150/60 mmHg BP Sitting (Post-Dialysis) 147/57 mmHg Concurrent Access: falseAV Fistula Upper Arm (Left) Arterial Sitting Heart Rate Pre-Dialysis 59 BPM Sitting H eart Rate Post-Dialysis 65 BPM Temperature Pre-Dialysis 98.2 degF Temperature Post -Dialysis 97 degF June 16, 2024 In-Center Hemodialysis Treatment 4753-23-47P77:45:21.000Z 4290-94-31P59:14:20.000Z BP Sitting (Pre-Dialysis) 158/125 mmHg BP Sitting (Post-Dialysis) 132/56 mmHg Concurrent Access: falseAV Fistula Upper Arm (Left) Arterial Sitting Heart Rate Pre-Dialysis 70 BPM Sitting H eart Rate Post-Dialysis 78 BPM Temperature Pre-Dialysis 98.2 degF Temperature Post -Dialysis 97.2 degF June 13, 2024 In-Center Hemodialysis Treatment 1339-14-45Y92:27:56.000Z 0638-64-00L64:59:56.000Z BP Sitting (Pre-Dialysis) 183/64 mmHg BP Sitting (Post-Dialysis) 180/60 mmHg Concurrent Access: falseAV Fistula Upper Arm (Left) Arterial Sitting Heart Rate Pre-Dialysis 57 BPM Sitting H eart Rate Post-Dialysis 55 BPM Temperature Pre-Dialysis 97 degF Temperature Post -Dialysis 97.8 degF June 11, 2024 In-Center Hemodialysis Treatment 1211-37-13C82:27:30.000Z 9898-50-21U21:59:30.000Z BP Sitting (Pre-Dialysis) 159/85 mmHg BP Sitting (Post-Dialysis) 171/55 mmHg Concurrent Access: falseAV Fistula Upper Arm (Left) Arterial Sitting Heart Rate Pre-Dialysis 64 BPM Sitting H eart Rate Post-Dialysis 55 BPM Temperature Pre-Dialysis 98 degF Temperature Post -Dialysis 98 degF June 09, 2024 In-Center Hemodialysis Treatment 9013-80-79H17:29:46.000Z 3610-47-52C08:03:46.000Z BP Sitting (Pre-Dialysis) 191/66 mmHg BP Sitting (Post-Dialysis) 137/69 mmHg Concurrent Access: falseAV Fistula Upper Arm (Left) Arterial Sitting Heart Rate Pre-Dialysis 59 BPM Sitting H eart Rate Post-Dialysis 69 BPM Temperature Pre-Dialysis 97.8 degF Temperature Post -Dialysis 97.2 degF June 06, 2024 In-Center Hemodialysis Treatment 0090-33-52F13:45:22.000Z 0501-14-20D19:09:21.000Z BP Sitting (Pre-Dialysis) 151/65 mmHg BP Sitting (Post-Dialysis) 140/56 mmHg Concurrent Access: falseAV Fistula Upper Arm (Left) Arterial Sitting Heart Rate Pre-Dialysis 67 BPM Sitting H eart Rate Post-Dialysis 65 BPM Temperature Pre-Dialysis 97.9 degF Temperature Post -Dialysis 97 degF June 04, 2024 In-Center Hemodialysis Treatment 9068-07-36V75:39:49.000Z 3877-64-62F34:02:48.000Z BP Sitting (Pre-Dialysis) 163/85 mmHg BP Sitting (Post-Dialysis) 143/53 mmHg Concurrent Access: falseAV Fistula Upper Arm (Left) Arterial Sitting Heart Rate Pre-Dialysis 64 BPM Sitting H eart Rate Post-Dialysis 60 BPM Temperature Pre-Dialysis 97.8 degF Temperature Post -Dialysis 97.8 degF June 02, 2024 In-Center Hemodialysis Treatment 9694-52-53P43:22:14.000Z 7368-20-78O80:46:15.000Z BP Sitting (Pre-Dialysis) 182/65 mmHg BP Sitting (Post-Dialysis) 123/81 mmHg Concurrent Access: falseAV Fistula Upper Arm (Left) Arterial BP Standing (Pre-Dialysis) 188/77 mmHg Sitti ng Heart Rate Post-Dialysis 72 BPM Sitting Heart Rate Pre-Dialysis 63 BPM Temperatu re Post-Dialysis 97.5 degF Standing Heart Rate Pre-Dialysis 66 BPM Temperature Pre-Dialysis 96.8 degF May 30, 2024 In-Center Hemodialysis Treatment 4229-85-42J14:33:05.000Z 5473-82-32D66:05:05.000Z BP Sitting (Pre-Dialysis) 149/73 mmHg BP Sitting (Post-Dialysis) 132/69 mmHg Concurrent Access: falseAV Fistula Upper Arm (Left) Arterial Sitting Heart Rate Pre-Dialysis 54 BPM Sitting H eart Rate Post-Dialysis 69 BPM Temperature Pre-Dialysis 98 degF Temperature Post -Dialysis 98.2 degF May 28, 2024 In-Center Hemodialysis Treatment 2121-48-81Q25:34:40.000Z 3676-37-64X75:02:40.000Z BP Sitting (Pre-Dialysis) 169/55 mmHg BP Sitting (Post-Dialysis) 140/53 mmHg Concurrent Access: falseAV Fistula Upper Arm (Left) Arterial Sitting Heart Rate Pre-Dialysis 52 BPM Sitting H eart Rate Post-Dialysis 69 BPM Temperature Pre-Dialysis 98 degF Temperature Post -Dialysis 98.2 degF May 26, 2024 In-Center Hemodialysis Treatment 2391-30-96Z86:20:00.000Z 6482-02-81A30:56:46.000Z BP Sitting (Pre-Dialysis) 196/56 mmHg BP Sitting (Post-Dialysis) 147/59 mmHg Concurrent Access: falseAV Fistula Upper Arm (Left) Arterial Sitting Heart Rate Pre-Dialysis 51 BPM Sitting H eart Rate Post-Dialysis 60 BPM Temperature Pre-Dialysis 97.1 degF Temperature Post -Dialysis 98.5 degF May 23, 2024 In-Center Hemodialysis Treatment 4360-31-36O26:34:17.000Z 7809-99-95B88:02:16.000Z BP Sitting (Pre-Dialysis) 173/60 mmHg BP Sitting (Post-Dialysis) 160/62 mmHg Concurrent Access: falseAV Fistula Upper Arm (Left) Arterial Sitting Heart Rate Pre-Dialysis 52 BPM Sitting H eart Rate Post-Dialysis 53 BPM Temperature Pre-Dialysis 98 degF Temperature Post -Dialysis 98 degF May 21, 2024 In-Center Hemodialysis Treatment 3414-06-64A33:28:45.000Z 8717-79-63B96:07:44.000Z BP Sitting (Pre-Dialysis) 173/59 mmHg BP Sitting (Post-Dialysis) 162/77 mmHg Concurrent Access: falseAV Fistula Upper Arm (Left) Arterial Sitting Heart Rate Pre-Dialysis 57 BPM Sitting H eart Rate Post-Dialysis 81 BPM Temperature Pre-Dialysis 97.8 degF Temperature Post -Dialysis 97.6 degF May 19, 2024 In-Center Hemodialysis Treatment [id number]:31:31.000Z 7366-02-82C36:58:31.000Z BP Sitting (Pre-Dialysis) 161/60 mmHg BP Sitting (Post-Dialysis) 165/70 mmHg Concurrent Access: falseAV Fistula Upper Arm (Left) Arterial Sitting Heart Rate Pre-Dialysis 57 BPM Sitting H eart Rate Post-Dialysis 59 BPM Temperature Pre-Dialysis 97.8 degF Temperature Post -Dialysis 97.4 degF May 17, 2024 In-Center Hemodialysis Treatment 0430-06-30D97:59:19.000Z 6849-87-03H14:28:04.000Z BP Sitting (Pre-Dialysis) 170/60 mmHg BP Sitting (Post-Dialysis) 171/73 mmHg Concurrent Access: falseAV Fistula Upper Arm (Left) Arterial Sitting Heart Rate Pre-Dialysis 51 BPM Sitting H eart Rate Post-Dialysis 58 BPM Temperature Pre-Dialysis 97.8 degF Temperature Post -Dialysis 97.8 degF May 14, 2024 In-Center Hemodialysis Treatment [id number]:40:00.000Z 5336-02-94D29:14:26.000Z BP Sitting (Pre-Dialysis) 184/62 mmHg BP Sitting (Post-Dialysis) 175/53 mmHg Concurrent Access: falseAV Fistula Upper Arm (Left) Arterial Sitting Heart Rate Pre-Dialysis 54 BPM Sitting H eart Rate Post-Dialysis 52 BPM Temperature Pre-Dialysis 97 degF Temperature Post -Dialysis 97.5 degF May 09, 2024 In-Center Hemodialysis Treatment 2829-45-86B45:43:00.000Z 8091-83-89H06:04:00.000Z BP Sitting (Pre-Dialysis) 190/58 mmHg BP Sitting (Post-Dialysis) 181/56 mmHg Concurrent Access: falseAV Fistula Upper Arm (Left) Arterial Sitting Heart Rate Pre-Dialysis 51 BPM Sitting H eart Rate Post-Dialysis 48 BPM Temperature Pre-Dialysis 97.2 degF Temperature Post -Dialysis 97 degF May 06, 2024 In-Center Hemodialysis Treatment 9537-10-81H33:45:37.000Z 5094-24-50W49:49:37.000Z BP Sitting (Pre-Dialysis) 171/58 mmHg BP Sitting (Post-Dialysis) 159/62 mmHg Concurrent Access: falseAV Fistula Upper Arm (Left) Arterial Sitting Heart Rate Pre-Dialysis 49 BPM Sitting H eart Rate Post-Dialysis 58 BPM Temperature Pre-Dialysis 98 degF Temperature Post -Dialysis 98 degF May 04, 2024 In-Center Hemodialysis Treatment 5565-12-37M88:39:23.000Z 0718-64-66W80:15:23.000Z BP Sitting (Pre-Dialysis) 149/50 mmHg BP Sitting (Post-Dialysis) 160/51 mmHg Concurrent Access: falseAV Fistula Upper Arm (Left) Arterial Sitting Heart Rate Pre-Dialysis 55 BPM Sitting H eart Rate Post-Dialysis 53 BPM Temperature Pre-Dialysis 98 degF Temperature Post -Dialysis 98 degF May 02, 2024 In-Center Hemodialysis Treatment 3283-73-63G86:01:20.000Z 1794-13-61N88:28:25.000Z BP Sitting (Pre-Dialysis) 244/82 mmHg BP Sitting (Post-Dialysis) 213/81 mmHg Concurrent Access: falseAV Fistula Upper Arm (Left) Arterial Sitting Heart Rate Pre-Dialysis 53 BPM Sitting H eart Rate Post-Dialysis 48 BPM Temperature Pre-Dialysis 98.2 degF Temperature Post -Dialysis 98.2 degF April 29, 2024 In-Center Hemodialysis Treatment 9669-69-92R90:45:24.000Z 2693-40-13D69:38:19.000Z BP Sitting (Pre-Dialysis) 164/60 mmHg BP Sitting (Post-Dialysis) 169/68 mmHg Concurrent Access: falseAV Fistula Upper Arm (Left) Arterial Sitting Heart Rate Pre-Dialysis 61 BPM Sitting H eart Rate Post-Dialysis 59 BPM Temperature Pre-Dialysis 97.6 degF Temperature Post -Dialysis 98.2 degF April 28, 2024 In-Center Hemodialysis Treatment 2337-20-94Z02:38:52.000Z 0702-35-58X88:10:57.000Z BP Sitting (Pre-Dialysis) 213/75 mmHg BP Sitting (Post-Dialysis) 178/69 mmHg Concurrent Access: falseAV Fistula Upper Arm (Left) Arterial Sitting Heart Rate Pre-Dialysis 53 BPM Sitting H eart Rate Post-Dialysis 51 BPM Temperature Pre-Dialysis 96.8 degF Temperature Post -Dialysis 97.6 degF April 25, 2024 In-Center Hemodialysis Treatment 8113-06-85B59:12:00.000Z 0523-46-35J32:30:00.000Z BP Sitting (Pre-Dialysis) 176/99 mmHg BP Sitting (Post-Dialysis) 185/81 mmHg Concurrent Access: falseAV Fistula Upper Arm (Left) Arterial Sitting Heart Rate Pre-Dialysis 51 BPM Sitting H eart Rate Post-Dialysis 49 BPM Temperature Pre-Dialysis 96.8 degF Temperature Post -Dialysis 97.4 degF April 23, 2024 In-Center Hemodialysis Treatment 8043-80-52D16:17:00.000Z 2719-24-39M00:47:00.000Z BP Sitting (Pre-Dialysis) 154/61 mmHg BP Sitting (Post-Dialysis) 209/73 mmHg Concurrent Access: falseAV Fistula Upper Arm (Left) Arterial Sitting Heart Rate Pre-Dialysis 46 BPM Sitting H eart Rate Post-Dialysis 50 BPM Temperature Pre-Dialysis 97.2 degF Temperature Post -Dialysis 98 degF April 21, 2024 In-Center Hemodialysis Treatment 7291-02-08B87:02:00.000Z 6352-99-10C10:31:00.000Z BP Sitting (Pre-Dialysis) 162/81 mmHg BP Sitting (Post-Dialysis) 159/103 mmHg Concurrent Access: falseAV Fistula Upper Arm (Left) Arterial Sitting Heart Rate Pre-Dialysis 60 BPM Sitting H eart Rate Post-Dialysis 50 BPM Temperature Pre-Dialysis 98.3 degF Temperature Post -Dialysis 97.6 degF April 18, 2024 In-[place] [facility]od[facility] Treatment 4243-72-14O10:16:00.000Z 3397-36-65C32:46:00.000Z BP Sitting (Pre-Dialysis) 162/102 mmHg BP Sitting (Post-Dialysis) 160/69 mmHg Concurrent Access: falseAV Fistula Upper Arm (Left) Arterial Sitting Heart Rate Pre-Dialysis 52 BPM Sitting H eart Rate Post-Dialysis 64 BPM Temperature Pre-Dialysis 98.1 degF Temperature Post -Dialysis 97.9 degF April 16, 2024 In-Center Hemodialysis Treatment 8331-60-45M57:19:00.000Z 1594-47-88T36:51:49.000Z BP Sitting (Pre-Dialysis) 163/91 mmHg BP Sitting (Post-Dialysis) 157/75 mmHg Concurrent Access: falseAV Fistula Upper Arm (Left) Arterial Sitting Heart Rate Pre-Dialysis 52 BPM Sitting H eart Rate Post-Dialysis 46 BPM Temperature Pre-Dialysis 97.8 degF Temperature Post -Dialysis 97.6 degF April 14, 2024 In-Center Hemodialysis Treatment 8057-23-14A51:00:00.000Z 1658-39-14K39:29:00.000Z BP Sitting (Pre-Dialysis) 193/94 mmHg BP Sitting (Post-Dialysis) 132/79 mmHg Concurrent Access: falseAV Fistula Upper Arm (Left) Arterial Sitting Heart Rate Pre-Dialysis 55 BPM Sitting H eart Rate Post-Dialysis 72 BPM Temperature Pre-Dialysis 97.7 degF Temperature Post -Dialysis 97.9 degF April 11, 2024 In-Center Hemodialysis Treatment 4284-43-12Z19:06:00.000Z 4300-20-85E16:38:00.000Z BP Sitting (Pre-Dialysis) 185/101 mmHg BP Sitting (Post-Dialysis) 134/75 mmHg Concurrent Access: falseAV Fistula Upper Arm (Left) Arterial Sitting Heart Rate Pre-Dialysis 60 BPM Sitting H eart Rate Post-Dialysis 60 BPM Temperature Pre-Dialysis 97.2 degF Temperature Post -Dialysis 98 degF April 09, 2024 In-Center Hemodialysis Treatment 8137-10-16W42:28:00.000Z 4372-42-31R92:00:00.000Z BP Sitting (Pre-Dialysis) 181/98 mmHg BP Sitting (Post-Dialysis) 196/88 mmHg Concurrent Access: falseAV Fistula Upper Arm (Left) Arterial Sitting Heart Rate Pre-Dialysis 52 BPM Sitting H eart Rate Post-Dialysis 60 BPM Temperature Pre-Dialysis 97.1 degF Temperature Post -Dialysis 98 degF April 07, 2024 In-Center Hemodialysis Treatment 9490-36-12E53:37:00.000Z 3637-79-58V41:07:00.000Z BP Sitting (Pre-Dialysis) 167/71 mmHg BP Sitting (Post-Dialysis) 118/90 mmHg Concurrent Access: falseAV Fistula Upper Arm (Left) Arterial Sitting Heart Rate Pre-Dialysis 46 BPM Sitting H eart Rate Post-Dialysis 50 BPM Temperature Pre-Dialysis 97.7 degF Temperature Post -Dialysis 97.8 degF April 04, 2024 In-Center Hemodialysis Treatment 7466-63-81H97:12:00.000Z 5018-48-19E37:43:15.000Z BP Sitting (Pre-Dialysis) 173/78 mmHg BP Sitting (Post-Dialysis) 177/79 mmHg Concurrent Access: falseAV Fistula Upper Arm (Left) Arterial Sitting Heart Rate Pre-Dialysis 49 BPM Sitting H eart Rate Post-Dialysis 51 BPM Temperature Pre-Dialysis 97.3 degF Temperature Post -Dialysis 97.6 degF April 02, 2024 In-Center Hemodialysis Treatment 7321-43-40Y54:20:00.000Z 6067-03-03B80:52:00.000Z BP Sitting (Pre-Dialysis) 119/94 mmHg BP Sitting (Post-Dialysis) 194/99 mmHg Concurrent Access: falseAV Fistula Upper Arm (Left) Arterial Sitting Heart Rate Pre-Dialysis 105 BPM Sitting H eart Rate Post-Dialysis 50 BPM Temperature Pre-Dialysis 97.7 degF Temperature Post -Dialysis 97.4 degF March 31, 2024 In-Center Hemodialysis Treatment 7153-00-82I82:08:00.000Z 6403-77-56Y24:41:13.000Z BP Sitting (Pre-Dialysis) 169/97 mmHg BP Sitting (Post-Dialysis) 157/87 mmHg Concurrent Access: falseAV Fistula Upper Arm (Left) Arterial Sitting Heart Rate Pre-Dialysis 54 BPM Sitting H eart Rate Post-Dialysis 60 BPM Temperature Pre-Dialysis 97 degF Temperature Post -Dialysis 98 degF March 28, 2024 In-Center Hemodialysis Treatment 4828-15-47M84:14:00.000Z 2749-94-97R00:45:00.000Z BP Sitting (Pre-Dialysis) 171/96 mmHg BP Sitting (Post-Dialysis) 190/91 mmHg Concurrent Access: falseAV Fistula Upper Arm (Left) Arterial Sitting Heart Rate Pre-Dialysis 55 BPM Sitting H eart Rate Post-Dialysis 60 BPM Temperature Pre-Dialysis 98.1 degF Temperature Post -Dialysis 97.6 degF March 26, 2024 In-Center Hemodialysis Treatment 2364-66-98L05:24:00.000Z 0027-66-49N36:10:04.000Z BP Sitting (Pre-Dialysis) 159/75 mmHg BP Sitting (Post-Dialysis) 184/71 mmHg Concurrent Access: falseAV Fistula Upper Arm (Left) Arterial Sitting Heart Rate Pre-Dialysis 60 BPM Sitting H eart Rate Post-Dialysis 67 BPM Temperature Pre-Dialysis 97.3 degF Temperature Post -Dialysis 97.2 degF March 24, 2024 In-Center Hemodialysis Treatment 5556-63-88E83:58:00.000Z 6854-06-97E87:29:00.000Z BP Sitting (Pre-Dialysis) 120/82 mmHg BP Sitting (Post-Dialysis) 135/88 mmHg Concurrent Access: falseAV Fistula Upper Arm (Left) Arterial Sitting Heart Rate Pre-Dialysis 54 BPM Sitting H eart Rate Post-Dialysis 49 BPM Temperature Pre-Dialysis 98.9 degF Temperature Post -Dialysis 97.3 degF March 21, 2024 In-Center Hemodialysis Treatment 4168-45-27E32:39:00.000Z 4736-49-15Z41:18:00.000Z BP Sitting (Pre-Dialysis) 158/81 mmHg BP Sitting (Post-Dialysis) 150/98 mmHg Concurrent Access: falseAV Fistula Upper Arm (Left) Arterial Sitting Heart Rate Pre-Dialysis 53 BPM Sitting H eart Rate Post-Dialysis 55 BPM Temperature Pre-Dialysis 97.7 degF Temperature Post -Dialysis 98 degF March 19, 2024 In-Center Hemodialysis Treatment 2718-81-77W46:42:00.000Z 9788-02-19Z87:13:07.000Z BP Sitting (Pre-Dialysis) 169/86 mmHg BP Sitting (Post-Dialysis) 160/51 mmHg Concurrent Access: falseAV Fistula Upper Arm (Left) Arterial Sitting Heart Rate Pre-Dialysis 60 BPM Sitting H eart Rate Post-Dialysis 54 BPM Temperature Pre-Dialysis 97.6 degF Temperature Post -Dialysis 97.6 degF March 17, 2024 In-Center Hemodialysis Treatment 3908-43-25G16:57:00.000Z 4516-69-20U21:45:56.000Z BP Sitting (Pre-Dialysis) 168/61 mmHg BP Sitting (Post-Dialysis) 160/97 mmHg Concurrent Access: falseAV Fistula Upper Arm (Left) Arterial Sitting Heart Rate Pre-Dialysis 60 BPM Sitting H eart Rate Post-Dialysis 71 BPM Temperature Pre-Dialysis 97.3 degF Temperature Post -Dialysis 97.4 degF March 14, 2024 In-Center Hemodialysis Treatment 9600-73-64U66:03:00.000Z 6894-62-98Z79:39:10.000Z BP Sitting (Pre-Dialysis) 165/91 mmHg BP Sitting (Post-Dialysis) 152/96 mmHg Concurrent Access: falseAV Fistula Upper Arm (Left) Arterial Sitting Heart Rate Pre-Dialysis 60 BPM Sitting H eart Rate Post-Dialysis 62 BPM Temperature Pre-Dialysis 97 degF Temperature Post -Dialysis 97.6 degF March 12, 2024 In-Center Hemodialysis Treatment 9629-30-65W58:43:00.000Z 4307-95-83Q44:15:00.000Z BP Sitting (Pre-Dialysis) 171/90 mmHg BP Sitting (Post-Dialysis) 182/84 mmHg Concurrent Access: falseAV Fistula Upper Arm (Left) Arterial Sitting Heart Rate Pre-Dialysis 60 BPM Sitting H eart Rate Post-Dialysis 62 BPM Temperature Pre-Dialysis 97.7 degF Temperature Post -Dialysis 98 degF March 10, 2024 In-Center Hemodialysis Treatment 5854-16-51R24:13:00.000Z 0709-96-73V26:44:00.000Z BP Sitting (Pre-Dialysis) 172/93 mmHg BP Sitting (Post-Dialysis) 160/82 mmHg Concurrent Access: falseAV Fistula Upper Arm (Left) Arterial Sitting Heart Rate Pre-Dialysis 60 BPM Sitting H eart Rate Post-Dialysis 60 BPM Temperature Pre-Dialysis 97.5 degF Temperature Post -Dialysis 97.6 degF March 07, 2024 In-Center Hemodialysis Treatment 3366-46-80G98:40:00.000Z 0672-26-61N98:12:19.000Z BP Sitting (Pre-Dialysis) 117/79 mmHg BP Sitting (Post-Dialysis) 141/76 mmHg Concurrent Access: falseAV Fistula Upper Arm (Left) Arterial Sitting Heart Rate Pre-Dialysis 60 BPM Sitting H eart Rate Post-Dialysis 54 BPM Temperature Pre-Dialysis 96.8 degF Temperature Post -Dialysis 97.3 degF March 05, 2024 In-Center Hemodialysis Treatment 3516-76-55O37:25:00.000Z 2086-86-86M30:55:45.000Z BP Sitting (Pre-Dialysis) 146/83 mmHg BP Sitting (Post-Dialysis) 149/96 mmHg Concurrent Access: falseAV Fistula Upper Arm (Left) Arterial Sitting Heart Rate Pre-Dialysis 50 BPM Sitting H eart Rate Post-Dialysis 51 BPM Temperature Pre-Dialysis 97.1 degF Temperature Post -Dialysis 97.8 degF February 23, 2024 In-Center Hemodialysis Treatment 7815-99-60W43:55:00.000Z 2372-72-91O67:31:00.000Z BP Sitting (Pre-Dialysis) 150/71 mmHg BP Sitting (Post-Dialysis) 100/64 mmHg Concurrent Access: falseAV Fistula Upper Arm (Left) Arterial Sitting Heart Rate Pre-Dialysis 65 BPM Sitting H eart Rate Post-Dialysis 60 BPM Temperature Pre-Dialysis 97.3 degF Temperature Post -Dialysis 97.1 degF February 20, 2024 In-Center Hemodialysis Treatment 7505-70-88X07:53:00.000Z 6123-98-21D66:30:00.000Z BP Sitting (Pre-Dialysis) 116/80 mmHg BP Sitting (Post-Dialysis) 113/99 mmHg Concurrent Access: falseAV Fistula Upper Arm (Left) Arterial Sitting Heart Rate Pre-Dialysis 60 BPM Sitting H eart Rate Post-Dialysis 74 BPM Temperature Pre-Dialysis 97 degF Temperature Post -Dialysis 97.2 degF February 18, 2024 In-Center Hemodialysis Treatment 4931-57-76R88:31:00.000Z 1580-18-72D65:03:00.000Z BP Sitting (Pre-Dialysis) 107/65 mmHg BP Sitting (Post-Dialysis) 170/89 mmHg Concurrent Access: falseAV Fistula Upper Arm (Left) Arterial Sitting Heart Rate Pre-Dialysis 88 BPM Sitting H eart Rate Post-Dialysis 60 BPM Temperature Pre-Dialysis 97.1 degF Temperature Post -Dialysis 97.2 degF February 15, 2024 In-Center Hemodialysis Treatment 8847-24-08I00:10:00.000Z 7317-90-35U84:41:00.000Z BP Sitting (Pre-Dialysis) 158/99 mmHg BP Sitting (Post-Dialysis) 127/63 mmHg Concurrent Access: falseAV Fistula Upper Arm (Left) Arterial Sitting Heart Rate Pre-Dialysis 60 BPM Sitting H eart Rate Post-Dialysis 60 BPM Temperature Pre-Dialysis 97.6 degF Temperature Post -Dialysis 97.1 degF February 13, 2024 In-Center Hemodialysis Treatment 0680-63-40V93:00:00.000Z 6375-50-04Z76:29:00.000Z BP Sitting (Pre-Dialysis) 149/96 mmHg BP Sitting (Post-Dialysis) 174/98 mmHg Concurrent Access: falseAV Fistula Upper Arm (Left) Arterial Sitting Heart Rate Pre-Dialysis 62 BPM Sitting H eart Rate Post-Dialysis 60 BPM Temperature Pre-Dialysis 97.6 degF Temperature Post -Dialysis 97.2 degF February 11, 2024 In-Center Hemodialysis Treatment 3428-72-91P93:39:00.000Z 9208-10-00Y50:08:06.000Z BP Sitting (Pre-Dialysis) 163/90 mmHg BP Sitting [...] degF February 06, 2024 In-Center Hemodialysis Treatment 0843-18-01X64:50:00.000Z 6983-55-07A87:00:00.000Z BP Sitting (Pre-Dialysis) 145/69 mmHg BP Sitting (Post-Dialysis) 135/59 mmHg Concurrent Access: falseAV Fistula Upper Arm (Left) Arterial Sitting Heart Rate Pre-Dialysis 69 BPM Sitting H eart Rate Post-Dialysis 60 BPM Temperature Pre-Dialysis 96.3 degF Temperature Post -Dialysis 97.8 degF February 04, 2024 In-Center Hemodialysis Treatment 2817-29-13F23:07:00.000Z 0877-48-94R36:37:00.000Z BP Sitting (Pre-Dialysis) 112/56 mmHg BP Sitting (Post-Dialysis) 120/94 mmHg Concurrent Access: falseAV Fistula Upper Arm (Left) Arterial Sitting Heart Rate Pre-Dialysis 60 BPM Sitting H eart Rate Post-Dialysis 71 BPM Temperature Pre-Dialysis 97.6 degF Temperature Post -Dialysis 97.6 degF February 01, 2024 In-Center Hemodialysis Treatment 1057-33-19P23:34:00.000Z 4494-83-13J15:00:00.000Z BP Sitting (Pre-Dialysis) 156/71 mmHg BP Sitting (Post-Dialysis) 139/95 mmHg Concurrent Access: falseAV Fistula Upper Arm (Left) Arterial Sitting Heart Rate Pre-Dialysis 67 BPM Sitting H eart Rate Post-Dialysis 62 BPM Temperature Pre-Dialysis 97.2 degF Temperature Post -Dialysis 97 degF January 30, 2024 In-Center Hemodialysis Treatment 2095-24-03E80:12:00.000Z 6511-42-87T64:41:00.000Z BP Sitting (Pre-Dialysis) 123/104 mmHg BP Sitting (Post-Dialysis) 112/50 mmHg Concurrent Access: falseAV Fistula Upper Arm (Left) Arterial Sitting Heart Rate Pre-Dialysis 65 BPM Sitting H eart Rate Post-Dialysis 55 BPM Temperature Pre-Dialysis 98.1 degF Temperature Post -Dialysis 97.1 degF January 29, 2024 In-Center Hemodialysis Treatment 7232-99-34G77:33:57.000Z 8595-89-65O40:23:07.000Z BP Sitting (Pre-Dialysis) 156/50 mmHg BP Sitting (Post-Dialysis) 140/61 mmHg Concurrent Access: falseAV Fistula Upper Arm (Left) Arterial Sitting Heart Rate Pre-Dialysis 64 BPM Sitting H eart Rate Post-Dialysis 65 BPM Temperature Pre-Dialysis 97.6 degF Temperature Post -Dialysis 97.6 degF January 25, 2024 In-Center Hemodialysis Treatment 9056-51-84D40:46:00.000Z 0070-69-93F13:10:01.000Z BP Sitting (Pre-Dialysis) 134/91 mmHg BP Sitting (Post-Dialysis) 104/91 mmHg Concurrent Access: falseAV Fistula Upper Arm (Left) Arterial Sitting Heart Rate Pre-Dialysis 60 BPM Sitting H eart Rate Post-Dialysis 55 BPM Temperature Pre-Dialysis 97.9 degF Temperature Post -Dialysis 97.7 degF January 23, 2024 In-Center Hemodialysis Treatment 0756-37-06T05:10:00.000Z 3324-22-93L76:00:00.000Z BP Sitting (Pre-Dialysis) 134/101 mmHg BP Sitting (Post-Dialysis) 111/47 mmHg Concurrent Access: falseAV Fistula Upper Arm (Left) Arterial Sitting Heart Rate Pre-Dialysis 60 BPM Sitting H eart Rate Post-Dialysis 60 BPM Temperature Pre-Dialysis 98.2 degF Temperature Post -Dialysis 97.8 degF January 21, 2024 In-Center Hemodialysis Treatment 4321-09-95P51:14:00.000Z 7332-29-54H75:44:21.000Z BP Sitting (Pre-Dialysis) 150/96 mmHg BP Sitting (Post-Dialysis) 107/70 mmHg Concurrent Access: falseAV Fistula Upper Arm (Left) Arterial Sitting Heart Rate Pre-Dialysis 60 BPM Sitting H eart Rate Post-Dialysis 66 BPM Temperature Pre-Dialysis 97.8 degF Temperature Post -Dialysis 97.2 degF January 18, 2024 In-Center Hemodialysis Treatment 8527-97-45F09:55:00.000Z 9527-74-94Z51:30:00.000Z BP Sitting (Pre-Dialysis) 147/79 mmHg BP Sitting (Post-Dialysis) 130/62 mmHg Concurrent Access: falseAV Fistula Upper Arm (Left) Arterial Sitting Heart Rate Pre-Dialysis 53 BPM Sitting H eart Rate Post-Dialysis 73 BPM Temperature Pre-Dialysis 97.4 degF Temperature Post -Dialysis 97.7 degF January 16, 2024 In-Center Hemodialysis Treatment 9383-51-54U10:59:00.000Z 4484-24-32O94:30:00.000Z BP Sitting (Pre-Dialysis) 146/77 mmHg BP Sitting (Post-Dialysis) 128/75 mmHg Concurrent Access: falseAV Fistula Upper Arm (Left) Arterial Sitting Heart Rate Pre-Dialysis 71 BPM Sitting H eart Rate Post-Dialysis 60 BPM Temperature Pre-Dialysis 97.8 degF Temperature Post -Dialysis 97.2 degF January 14, 2024 In-Center Hemodialysis Treatment 2531-79-06N75:08:00.000Z 3101-27-70W35:26:58.000Z BP Sitting (Pre-Dialysis) 128/72 mmHg BP Sitting (Post-Dialysis) 140/110 mmHg Concurrent Access: falseAV Fistula Upper Arm (Left) Arterial Sitting Heart Rate Pre-Dialysis 69 BPM Sitting H eart Rate Post-Dialysis 65 BPM Temperature Pre-Dialysis 97.2 degF Temperature Post -Dialysis 97.6 degF January 11, 2024 In-Center Hemodialysis Treatment 3341-19-64N68:52:00.000Z 2589-15-38P33:27:00.000Z BP Sitting (Pre-Dialysis) 117/78 mmHg BP Sitting (Post-Dialysis) 116/66 mmHg Concurrent Access: falseAV Fistula Upper Arm (Left) Arterial Sitting Heart Rate Pre-Dialysis 69 BPM Sitting H eart Rate Post-Dialysis 73 BPM Temperature Pre-Dialysis 97.8 degF Temperature Post -Dialysis 97.7 degF December 20, 2023 In-Center Hemodialysis Treatment 0815-94-40M89:40:58.000Z 5020-42-13R87:15:58.000Z BP Sitting (Pre-Dialysis) 156/65 mmHg BP Sitting [...] degF December 18, 2023 In-Center Hemodialysis Treatment 0393-97-98F53:44:58.000Z 0682-27-27C17:15:58.000Z BP Sitting (Pre-Dialysis) 126/81 mmHg BP Sitting (Post-Dialysis) 121/53 mmHg Concurrent Access: falseAV Fistula Upper Arm (Left) Arterial Sitting Heart Rate Pre-Dialysis 56 BPM Sitting H eart Rate Post-Dialysis 59 BPM Temperature Pre-Dialysis 97.6 degF Temperature Post -Dialysis 97.8 degF December 15, 2023 In-Center Hemodialysis Treatment 3138-97-52E92:35:29.000Z 7821-07-96M37:09:30.000Z BP Sitting (Pre-Dialysis) 140/95 mmHg BP Sitting [...] degF December 13, 2023 In-Center Hemodialysis Treatment 4598-32-08Y00:33:00.000Z 4263-74-68E45:02:30.000Z BP Sitting (Pre-Dialysis) 169/61 mmHg BP Sitting (Post-Dialysis) 113/60 mmHg Concurrent Access: falseAV Fistula Upper Arm (Left) Arterial Sitting Heart Rate Pre-Dialysis 68 BPM BP Standing (Post-Dialysis) 108/60 mmHg Temperature Pre-Dialysis 97.9 degF Sitting Heart Ra te Post-Dialysis 66 BPM Standing Heart Rate Post-[place] lysis 66 BPM Temperature Post-Dialysis 97 .9 degF December 11, 2023 In-Center Hemodialysis Treatment 6903-44-33P81:41:29.000Z 1811-50-01A28:14:30.000Z BP Sitting (Pre-Dialysis) 144/64 mmHg BP Sitting [...] degF December 08, 2023 In-Center Hemodialysis Treatment 2718-37-01M04:28:00.000Z 8923-76-08M64:40:11.000Z BP Sitting (Pre-Dialysis) 152/64 mmHg BP Sitting (Post-Dialysis) 128/79 mmHg Concurrent Access: falseAV Fistula Upper Arm (Left) Arterial BP Standing (Pre-Dialysis) 152/59 mmHg Sitti ng Heart Rate Post-Dialysis 71 BPM Sitting Heart Rate Pre-Dialysis 63 BPM Temperatu re Post-Dialysis 98.1 degF Standing Heart Rate Pre-Dialysis 63 BPM Temperature Pre-Dialysis 97.4 degF December 06, 2023 In-Center Hemodialysis Treatment 9624-72-61P24:28:10.000Z 5778-80-96X23:56:11.000Z BP Sitting (Pre-Dialysis) 191/60 mmHg BP Sitting (Post-Dialysis) 121/67 mmHg Concurrent Access: falseAV Fistula Upper Arm (Left) Arterial BP Standing (Pre-Dialysis) 189/62 mmHg Sitti ng Heart Rate Post-Dialysis 61 BPM Sitting Heart Rate Pre-Dialysis 64 BPM Temperatu re Post-Dialysis 97.2 degF Standing Heart Rate Pre-Dialysis 66 BPM Temperature Pre-Dialysis 97.2 degF December 04, 2023 In-Center Hemodialysis Treatment 4180-75-18J25:33:00.000Z 0294-17-27Y86:11:20.000Z BP Sitting (Pre-Dialysis) 175/67 mmHg BP Sitting [...] degF December 01, 2023 In-Center Hemodialysis Treatment 6098-17-02P29:33:00.000Z 5178-59-75V31:08:38.000Z BP Sitting (Pre-Dialysis) 136/54 mmHg BP Sitting [...] degF November 29, 2023 In-Center Hemodialysis Treatment 8744-58-30U98:37:38.000Z 8626-61-40U03:46:38.000Z BP Sitting (Pre-Dialysis) 174/66 mmHg BP Sitting [...] degF November 27, 2023 In-Center Hemodialysis Treatment 5056-36-37L05:39:00.000Z 7597-71-58K16:09:38.000Z BP Sitting (Pre-Dialysis) 165/60 mmHg BP Sitting (Post-Dialysis) 117/48 mmHg Concurrent Access: falseAV Fistula Upper Arm (Left) Arterial Sitting Heart Rate Pre-Dialysis 59 BPM Sitting H eart Rate Post-Dialysis 85 BPM Temperature Pre-Dialysis 97.6 degF Temperature Post -Dialysis 97.6 degF November 24, 2023 In-Center Hemodialysis Treatment 1440-05-04J49:43:23.000Z 9620-28-98D29:16:24.000Z BP Sitting (Pre-Dialysis) 164/71 mmHg BP Sitting [...] degF November 22, 2023 In-Center Hemodialysis Treatment 5324-91-56S28:32:00.000Z 6115-61-76R18:02:24.000Z BP Sitting (Pre-Dialysis) 170/68 mmHg BP Sitting [...] degF November 20, 2023 In-Center Hemodialysis Treatment 9464-76-23V08:42:23.000Z 8925-17-65B54:55:24.000Z BP Sitting (Pre-Dialysis) 157/81 mmHg BP Sitting (Post-Dialysis) 121/51 mmHg Concurrent Access: falseAV Fistula Upper Arm (Left) Arterial Sitting Heart Rate Pre-Dialysis 62 BPM BP Standing (Post-Dialysis) 121/48 mmHg Temperature Pre-Dialysis 97.6 degF Sitting Heart Ra te Post-Dialysis 57 BPM Standing Heart Rate Post-Ruba lysis 56 BPM Temperature Post-Dialysis 97 .9 degF November 17, 2023 In-Center Hemodialysis Treatment 3067-19-02I54:32:00.000Z 9894-32-92R82:05:32.000Z BP Sitting (Pre-Dialysis) 144/59 mmHg BP Sitting (Post-Dialysis) 137/58 mmHg Concurrent Access: falseAV Fistula Upper Arm (Left) Arterial BP Standing (Pre-Dialysis) 153/52 mmHg BP Standing (P ost-Dialysis) 138/52 mmHg Sitting Heart Rate Pre-Dialysis 55 BPM Sitting Heart Rate Post-Dialysis 52 BPM Standing Heart Rate Pre-Dialysis 52 BPM Temperature Post-Dialysis 97.9 degF Temperature Pre-Dialysis 97.9 degF November 15, 2023 In-Center Hemodialysis Treatment 7075-77-04O99:42:32.000Z 1675-43-39K68:16:32.000Z BP Sitting (Pre-Dialysis) 188/54 mmHg BP Sitting (Post-Dialysis) 133/86 mmHg Concurrent Access: falseAV Fistula Upper Arm (Left) Arterial BP Standing (Pre-Dialysis) 143/121 mmHg Sitti ng Heart Rate Post-Dialysis 70 BPM Sitting Heart Rate Pre-Dialysis 50 BPM Temperatu re Post-Dialysis 97.5 degF Standing Heart Rate Pre-Dialysis 51 BPM Temperature Pre-Dialysis 97.5 degF November 13, 2023 In-Center Hemodialysis Treatment 2803-03-33S76:46:32.000Z 2047-69-43G12:17:32.000Z BP Sitting (Pre-Dialysis) 182/63 mmHg BP Sitting (Post-Dialysis) 117/54 mmHg Concurrent Access: falseAV Fistula Upper Arm (Left) Arterial BP Standing (Pre-Dialysis) 184/75 mmHg Sitting Heart Rate Post-Dialysis 60 BPM Sitting Heart Rate Pre-Dialysis 64 BPM Standing Heart Rate Pre-Dialysis 65 BPM Temperature Pre-Dialysis 97.1 degF November 10, 2023 In-Center Hemodialysis Treatment 3257-79-56M90:34:00.000Z 6982-14-30Z85:09:10.000Z BP Sitting (Pre-Dialysis) 170/64 mmHg BP Sitting (Post-Dialysis) 144/45 mmHg Concurrent Access: falseAV Fistula Upper Arm (Left) Arterial BP Standing (Pre-Dialysis) 192/66 mmHg Sitting Heart Rate Post-Dialysis 64 BPM Sitting Heart Rate Pre-Dialysis 62 BPM Standing Heart Rate Pre-Dialysis 64 BPM Temperature Pre-Dialysis 97.6 degF November 06, 2023 In-Center Hemodialysis Treatment 6401-27-40G96:43:23.000Z 4429-00-31C77:05:23.000Z BP Sitting (Pre-Dialysis) 149/58 mmHg BP Sitting (Post-Dialysis) 118/48 mmHg Concurrent Access: falseAV Fistula Upper Arm (Left) Arterial BP Standing (Pre-Dialysis) 163/55 mmHg Sitting Heart Rate Post-Dialysis 52 BPM Sitting Heart Rate Pre-Dialysis 57 BPM Standing Heart Rate Pre-Dialysis 59 BPM Temperature Pre-Dialysis 97.8 degF November 03, 2023 In-Center Hemodialysis Treatment 8058-35-38Z42:33:00.000Z 0559-01-54G11:06:06.000Z BP Sitting (Pre-Dialysis) 139/55 mmHg BP Sitting (Post-Dialysis) 144/67 mmHg Concurrent Access: falseAV Fistula Upper Arm (Left) Arterial Sitting Heart Rate Pre-Dialysis 57 BPM BP Standing (Post-Dialysis) 137/68 mmHg Temperature Pre-Dialysis 97.8 degF Sitting Heart Ra te Post-Dialysis 58 BPM Standing Heart Rate Post-Ruba lysis 62 BPM Temperature Post-Dialysis 97 .6 degF November 01, 2023 In-Center Hemodialysis Treatment 2794-91-25J14:43:44.000Z 8136-15-65S15:17:44.000Z BP Sitting (Pre-Dialysis) 165/70 mmHg BP Sitting [...] degF October 30, 2023 In-Center Hemodialysis Treatment 3633-25-40T58:32:06.000Z 8002-26-94Y98:05:06.000Z BP Sitting (Pre-Dialysis) 169/55 mmHg BP Sitting (Post-Dialysis) 161/51 mmHg Concurrent Access: falseAV Fistula Upper Arm (Left) Arterial Sitting Heart Rate Pre-Dialysis 66 BPM Sitting H eart Rate Post-Dialysis 62 BPM Temperature Pre-Dialysis 97.8 degF Temperature Post -Dialysis 98.1 degF October 27, 2023 In-Center Hemodialysis Treatment 2175-57-45G24:29:00.000Z 9606-54-96X37:03:27.000Z BP Sitting (Pre-Dialysis) 144/53 mmHg BP Sitting (Post-Dialysis) 106/70 mmHg Concurrent Access: falseAV Fistula Upper Arm (Left) Arterial Sitting Heart Rate Pre-Dialysis 59 BPM Sitting H eart Rate Post-Dialysis 55 BPM Temperature Pre-Dialysis 98.1 degF Temperature Post -Dialysis 97.6 degF October 25, 2023 In-Center Hemodialysis Treatment 1184-58-35P67:36:27.000Z 3730-14-75P07:02:27.000Z BP Sitting (Pre-Dialysis) 149/60 mmHg BP Sitting (Post-Dialysis) 135/50 mmHg Concurrent Access: falseAV Fistula Upper Arm (Left) Arterial BP Standing (Pre-Dialysis) 148/66 mmHg Sitti ng Heart Rate Post-Dialysis 63 BPM Sitting Heart Rate Pre-Dialysis 57 BPM Temperatu re Post-Dialysis 97.9 degF Standing Heart Rate Pre-Dialysis 57 BPM Temperature Pre-Dialysis 97.9 degF October 20, 2023 In-Center Hemodialysis Treatment 0928-23-03O42:46:33.000Z 1080-28-29R12:19:33.000Z BP Sitting (Pre-Dialysis) 167/64 mmHg BP Sitting (Post-Dialysis) 110/51 mmHg Concurrent Access: falseAV Fistula Upper Arm (Left) Arterial BP Standing (Pre-Dialysis) 161/79 mmHg Sitti ng Heart Rate Post-Dialysis 54 BPM Sitting Heart Rate Pre-Dialysis 61 BPM Temperatu re Post-Dialysis 97.6 degF Standing Heart Rate Pre-Dialysis 58 BPM Temperature Pre-Dialysis 97.9 degF October 18, 2023 In-Center Hemodialysis Treatment 6587-73-89X07:40:00.000Z 0234-99-55J52:52:33.000Z BP Sitting (Pre-Dialysis) 161/61 mmHg BP Sitting [...] degF October 16, 2023 In-Center Hemodialysis Treatment 2026-70-97U97:25:33.000Z 8742-76-83R78:55:33.000Z BP Sitting (Pre-Dialysis) 160/53 mmHg BP Sitting (Post-Dialysis) 125/45 mmHg Concurrent Access: falseAV Fistula Upper Arm (Left) Arterial Sitting Heart Rate Pre-Dialysis 67 BPM Sitting H eart Rate Post-Dialysis 60 BPM Temperature Pre-Dialysis 97.6 degF Temperature Post -Dialysis 97.6 degF October 13, 2023 In-Center Hemodialysis Treatment 2834-20-62Q33:27:32.000Z 2068-56-83H41:57:32.000Z BP Sitting (Pre-Dialysis) 182/69 mmHg BP Sitting [...] degF October 11, 2023 In-Center Hemodialysis Treatment 6551-55-53Z22:40:00.000Z 5776-15-93T10:00:00.000Z BP Sitting (Pre-Dialysis) 163/61 mmHg BP Sitting (Post-Dialysis) 127/52 mmHg Concurrent Access: falseAV Fistula Upper Arm (Left) Arterial Sitting Heart Rate Pre-Dialysis 62 BPM BP Standing (Post-Dialysis) 113/51 mmHg Temperature Pre-Dialysis 97.5 degF Sitting Heart Ra te Post-Dialysis 56 BPM Standing Heart Rate Post-Ruba lysis 52 BPM Temperature Post-Dialysis 97 .5 degF October 09, 2023 In-Center Hemodialysis Treatment 5724-40-16W02:45:01.000Z 8278-03-80Y53:04:01.000Z BP Sitting (Pre-Dialysis) 159/55 mmHg BP Sitting (Post-Dialysis) 126/74 mmHg Concurrent Access: falseAV Fistula Upper Arm (Left) Arterial Sitting Heart Rate Pre-Dialysis 64 BPM Sitting H eart Rate Post-Dialysis 82 BPM Temperature Pre-Dialysis 97.6 degF Temperature Post -Dialysis 97.4 degF October 06, 2023 In-Center Hemodialysis Treatment 9231-57-07S99:37:40.000Z 0319-68-59T27:06:24.000Z BP Sitting (Pre-Dialysis) 172/56 mmHg BP Sitting (Post-Dialysis) 158/60 mmHg Concurrent Access: falseAV Fistula Upper Arm (Left) Arterial Sitting Heart Rate Pre-Dialysis 64 BPM Sitting H eart Rate Post-Dialysis 61 BPM Temperature Pre-Dialysis 97.8 degF Temperature Post -Dialysis 97.7 degF October 04, 2023 In-Center Hemodialysis Treatment 6366-59-61W09:33:39.000Z 9167-40-25R29:58:40.000Z BP Sitting (Pre-Dialysis) 158/60 mmHg BP Sitting [...] degF October 02, 2023 In-Center Hemodialysis Treatment 5223-69-91R89:43:00.000Z 6813-03-98Z33:16:40.000Z BP Sitting (Pre-Dialysis) 157/62 mmHg BP Sitting (Post-Dialysis) 147/59 mmHg Concurrent Access: falseAV Fistula Upper Arm (Left) Arterial Sitting Heart Rate Pre-Dialysis 61 BPM Sitting H eart Rate Post-Dialysis 59 BPM Temperature Pre-Dialysis 97.6 degF Temperature Post -Dialysis 97.6 degF September 29, 2023 In-Center Hemodialysis Treatment 2239-75-76X60:37:00.000Z 0171-94-54D66:02:55.000Z BP Sitting (Pre-Dialysis) 138/78 mmHg BP Sitting (Post-Dialysis) 139/64 mmHg Concurrent Access: falseAV Fistula Upper Arm (Left) Arterial BP Standing (Pre-Dialysis) 158/54 mmHg Sitting Heart Rate Post-Dialysis 54 BPM Sitting Heart Rate Pre-Dialysis 56 BPM Temperatu re Post-Dialysis 98 degF Standing Heart Rate Pre-Dialysis 65 BPM Temperature Pre-Dialysis 97.6 degF September 27, 2023 In-Center Hemodialysis Treatment 8498-81-73X11:46:00.000Z 7658-78-66L77:16:55.000Z BP Sitting (Pre-Dialysis) 191/77 mmHg BP Sitting (Post-Dialysis) 140/71 mmHg Concurrent Access: falseAV Fistula Upper Arm (Left) Arterial BP Standing (Pre-Dialysis) 183/65 mmHg Sitti ng Heart Rate Post-Dialysis 73 BPM Sitting Heart Rate Pre-Dialysis 59 BPM Temperatu re Post-Dialysis 97.8 degF Standing Heart Rate Pre-Dialysis 61 BPM Temperature Pre-Dialysis 97.8 degF September 25, 2023 In-Center Hemodialysis Treatment 7635-61-57G74:35:00.000Z 5023-42-20M22:12:55.000Z BP Sitting (Pre-Dialysis) 173/63 mmHg BP Sitting [...] degF September 22, 2023 In-Center Hemodialysis Treatment 2871-11-95K95:37:31.000Z 3245-74-42R28:06:32.000Z BP Sitting (Pre-Dialysis) 120/52 mmHg BP Sitting (Post-Dialysis) 174/89 mmHg Concurrent Access: falseAV Fistula Upper Arm (Left) Arterial BP Standing (Pre-Dialysis) 163/72 mmHg BP Standing (P ost-Dialysis) 128/82 mmHg Sitting Heart Rate Pre-Dialysis 74 BPM Sitting Heart Rate Post-Dialysis 74 BPM Standing Heart Rate Pre-Dialysis 86 BPM Standing Heart Rate Post-Dialysis 57 BPM Temperature Pre-Dialysis 97.8 degF Temperature Post -Dialysis 97.3 degF September 20, 2023 In-Center Hemodialysis Treatment 2677-45-10Q67:45:31.000Z 6677-86-17K35:15:32.000Z BP Sitting (Pre-Dialysis) 143/58 mmHg BP Sitting (Post-Dialysis) 114/49 mmHg Concurrent Access: falseAV Fistula Upper Arm (Left) Arterial Sitting Heart Rate Pre-Dialysis 66 BPM BP Standing (Post-Dialysis) 106/43 mmHg Temperature Pre-Dialysis 97.8 degF Sitting Heart Ra te Post-Dialysis 64 BPM Standing Heart Rate Post-Ruba lysis 60 BPM Temperature Post-Dialysis 97 .6 degF September 18, 2023 In-Center Hemodialysis Treatment 2211-13-61O71:30:00.000Z 6034-00-56S14:05:32.000Z BP Sitting (Pre-Dialysis) 152/94 mmHg BP Sitting (Post-Dialysis) 105/40 mmHg Concurrent Access: falseAV Fistula Upper Arm (Left) Arterial BP Standing (Pre-Dialysis) 118/39 mmHg BP Standing (P ost-Dialysis) 121/49 mmHg Sitting Heart Rate Pre-Dialysis 46 BPM Sitting Heart Rate Post-Dialysis 58 BPM Standing Heart Rate Pre-Dialysis 61 BPM Standing Heart Rate Post-Dialysis 66 BPM Temperature Pre-Dialysis 98 degF September 15, 2023 In-Center Hemodialysis Treatment 4494-26-15O63:39:00.000Z 1963-16-94J76:10:54.000Z BP Sitting (Pre-Dialysis) 160/62 mmHg BP Sitting [...] degF September 13, 2023 In-Center Hemodialysis Treatment 8891-32-82Q89:37:54.000Z 0206-76-40G27:11:54.000Z BP Sitting (Pre-Dialysis) 165/64 mmHg BP Sitting (Post-Dialysis) 128/45 mmHg Concurrent Access: falseAV Fistula Upper Arm (Left) Arterial Sitting Heart Rate Pre-Dialysis 55 BPM Sitting H eart Rate Post-Dialysis 58 BPM Temperature Pre-Dialysis 97.8 degF Temperature Post -Dialysis 97.8 degF September 11, 2023 In-Center Hemodialysis Treatment 3064-52-73H71:45:00.000Z 5986-38-53Z43:13:54.000Z BP Sitting (Pre-Dialysis) 163/56 mmHg BP Sitting (Post-Dialysis) 135/59 mmHg Concurrent Access: falseAV Fistula Upper Arm (Left) Arterial BP Standing (Pre-Dialysis) 159/67 mmHg Sitti ng Heart Rate Post-Dialysis 66 BPM Sitting Heart Rate Pre-Dialysis 62 BPM Temperatu re Post-Dialysis 97.6 degF Standing Heart Rate Pre-Dialysis 63 BPM Temperature Pre-Dialysis 97.6 degF September 08, 2023 In-Center Hemodialysis Treatment 1816-20-82T42:37:00.000Z 3346-46-86J52:13:49.000Z BP Sitting (Pre-Dialysis) 141/75 mmHg BP Sitting (Post-Dialysis) 134/70 mmHg Concurrent Access: falseAV Fistula Upper Arm (Left) Arterial BP Standing (Pre-Dialysis) 101/53 mmHg BP Standing (P ost-Dialysis) 122/45 mmHg Sitting Heart Rate Pre-Dialysis 57 BPM Sitting Heart Rate Post-Dialysis 51 BPM Standing Heart Rate Pre-Dialysis 58 BPM Standing Heart Rate Post-Dialysis 62 BPM Temperature Pre-Dialysis 97.9 degF Temperature Post -Dialysis 97.9 degF September 06, 2023 In-Center Hemodialysis Treatment 6459-33-10O34:43:00.000Z 6945-76-73H40:15:49.000Z BP Sitting (Pre-Dialysis) 159/60 mmHg BP Sitting (Post-Dialysis) 137/61 mmHg Concurrent Access: falseAV Fistula Upper Arm (Left) Arterial BP Standing (Pre-Dialysis) 121/71 mmHg Sitti ng Heart Rate Post-Dialysis 61 BPM Sitting Heart Rate Pre-Dialysis 63 BPM Temperatu re Post-Dialysis 97.6 degF Standing Heart Rate Pre-Dialysis 57 BPM Temperature Pre-Dialysis 97.8 degF September 04, 2023 In-Center Hemodialysis Treatment 0175-45-46D64:41:00.000Z 0319-14-49M66:37:49.000Z BP Sitting (Pre-Dialysis) 142/57 mmHg BP Sitting (Post-Dialysis) 145/115 mmHg Concurrent Access: falseAV Fistula Upper Arm (Left) Arterial Sitting Heart Rate Pre-Dialysis 60 BPM BP Standing (Post-Dialysis) 141/54 mmHg Temperature Pre-Dialysis 97.5 degF Sitting Heart Ra te Post-Dialysis 67 BPM Standing Heart Rate Post-Ruba lysis 67 BPM Temperature Post-Dialysis 97 .3 degF September 01, 2023 In-Center Hemodialysis Treatment 5120-94-89H84:35:00.000Z 9318-37-68N78:52:47.000Z BP Sitting (Pre-Dialysis) 143/50 mmHg BP Sitting (Post-Dialysis) 125/81 mmHg Concurrent Access: falseAV Fistula Upper Arm (Left) Arterial Sitting Heart Rate Pre-Dialysis 59 BPM BP Standi ng (Post-Dialysis) 91/47 mmHg Temperature Pre-Dialysis 97.8 degF Sitting Heart Ra te Post-Dialysis 50 BPM Standing Heart Rate Post-Ruba lysis 90 BPM Temperature Post-Dialysis 97 .5 degF August 30, 2023 In-Center Hemodialysis Treatment 7480-86-12Y18:34:00.000Z 7970-84-75W26:07:48.000Z BP Sitting (Pre-Dialysis) 157/100 mmHg BP Sitting (Post-Dialysis) 138/52 mmHg Concurrent Access: falseAV Fistula Upper Arm (Left) Arterial Sitting Heart Rate Pre-Dialysis 75 BPM Sitting H eart Rate Post-Dialysis 57 BPM Temperature Pre-Dialysis 97.9 degF Temperature Post -Dialysis 97.6 degF August 28, 2023 In-Center Hemodialysis Treatment 4613-82-19T58:42:00.000Z 7805-83-61K71:15:48.000Z BP Sitting (Pre-Dialysis) 136/51 mmHg BP Sitting (Post-Dialysis) 104/86 mmHg Concurrent Access: falseAV Fistula Upper Arm (Left) Arterial Sitting Heart Rate Pre-Dialysis 73 BPM BP Standing (Post-Dialysis) 110/80 mmHg Temperature Pre-Dialysis 98.1 degF Sitting Heart Ra te Post-Dialysis 63 BPM Standing Heart Rate Post-Ruba lysis 66 BPM Temperature Post-Dialysis 97 .6 degF August 25, 2023 In-Center Hemodialysis Treatment 0663-04-39R08:42:45.000Z 2032-11-41I97:21:46.000Z BP Sitting (Pre-Dialysis) 146/62 mmHg BP Sitting (Post-Dialysis) 111/42 mmHg Concurrent Access: falseAV Fistula Upper Arm (Left) Arterial Sitting Heart Rate Pre-Dialysis 57 BPM BP Standing (Post-Dialysis) 122/49 mmHg Temperature Pre-Dialysis 97.8 degF Sitting Heart Ra te Post-Dialysis 51 BPM Standing Heart Rate Post-Ruba lysis 52 BPM Temperature Post-Dialysis 97 .8 degF August 23, 2023 In-Center Hemodialysis Treatment 2370-71-56D13:34:48.000Z 8679-20-88Q52:00:49.000Z BP Sitting (Pre-Dialysis) 151/58 mmHg BP Sitting [...] degF August 21, 2023 In-Center Hemodialysis Treatment 8318-87-60S84:29:26.000Z 4237-08-54F37:00:27.000Z BP Sitting (Pre-Dialysis) 156/53 mmHg BP Sitting (Post-Dialysis) 150/56 mmHg Concurrent Access: falseAV Fistula Upper Arm (Left) Arterial BP Standing (Pre-Dialysis) 136/50 mmHg Sitting Heart Rate Post-Dialysis 68 BPM Sitting Heart Rate Pre-Dialysis 69 BPM Standing Heart Rate Pre-Dialysis 72 BPM Temperature Pre-Dialysis 97.3 degF August 18, 2023 In-Center Hemodialysis Treatment 3634-41-27L50:37:22.000Z 6038-10-05Y67:08:22.000Z BP Sitting (Pre-Dialysis) 130/65 mmHg BP Sitting (Post-Dialysis) 139/51 mmHg Concurrent Access: falseAV Fistula Upper Arm (Left) Arterial BP Standing (Pre-Dialysis) 160/111 mmHg Sitti ng Heart Rate Post-Dialysis 64 BPM Sitting Heart Rate Pre-Dialysis 66 BPM Temperatu re Post-Dialysis 97.9 degF Standing Heart Rate Pre-Dialysis 68 BPM Temperature Pre-Dialysis 97.5 degF August 16, 2023 In-Center Hemodialysis Treatment 1333-13-59W74:37:00.000Z 9399-50-43X62:08:27.000Z BP Sitting (Pre-Dialysis) 146/57 mmHg BP Sitting (Post-Dialysis) 115/41 mmHg Concurrent Access: falseAV Fistula Upper Arm (Left) Arterial BP Standing (Pre-Dialysis) 149/56 mmHg Sitti ng Heart Rate Post-Dialysis 56 BPM Sitting Heart Rate Pre-Dialysis 63 BPM Temperatu re Post-Dialysis 97.9 degF Standing Heart Rate Pre-Dialysis 63 BPM Temperature Pre-Dialysis 97.5 degF August 14, 2023 In-Center Hemodialysis Treatment 1188-89-73G13:43:26.000Z 9513-43-00D31:14:27.000Z BP Sitting (Pre-Dialysis) 141/49 mmHg BP Sitting (Post-Dialysis) 124/49 mmHg Concurrent Access: falseAV Fistula Upper Arm (Left) Arterial Sitting Heart Rate Pre-Dialysis 58 BPM Sitting H eart Rate Post-Dialysis 56 BPM Temperature Pre-Dialysis 97.6 degF Temperature Post -Dialysis 97.6 degF August 11, 2023 In-Center Hemodialysis Treatment 2109-44-84S79:33:00.000Z 5316-54-22F06:30:08.000Z BP Sitting (Pre-Dialysis) 155/57 mmHg BP Sitting (Post-Dialysis) 159/44 mmHg Concurrent Access: falseAV Fistula Upper Arm (Left) Arterial BP Standing (Pre-Dialysis) 151/53 mmHg Sitting Heart Rate Post-Dialysis 59 BPM Sitting Heart Rate Pre-Dialysis 62 BPM Temperatu re Post-Dialysis 97 degF Standing Heart Rate Pre-Dialysis 65 BPM Temperature Pre-Dialysis 97.9 degF August 09, 2023 In-Center Hemodialysis Treatment 0288-23-60V48:41:00.000Z 3465-84-38N65:14:08.000Z BP Sitting (Pre-Dialysis) 155/79 mmHg BP Sitting (Post-Dialysis) 113/40 mmHg Concurrent Access: falseAV Fistula Upper Arm (Left) Arterial Sitting Heart Rate Pre-Dialysis 65 BPM BP Standing (Post-Dialysis) 124/49 mmHg Temperature Pre-Dialysis 97.9 degF Sitting Heart Ra te Post-Dialysis 63 BPM Standing Heart Rate Post-Ruba lysis 61 BPM Temperature Post-Dialysis 97 .2 degF August 07, 2023 In-Center Hemodialysis Treatment 9889-76-25A40:44:07.000Z 9843-80-06W48:14:08.000Z BP Sitting (Pre-Dialysis) 137/70 mmHg BP Sitting (Post-Dialysis) 138/51 mmHg Concurrent Access: falseAV Fistula Upper Arm (Left) Arterial Sitting Heart Rate Pre-Dialysis 63 BPM BP Standi ng (Post-Dialysis) 135/49 mmHg Temperature Pre-Dialysis 98 degF Sitting Heart Ra te Post-Dialysis 60 BPM Standing Heart Rate Post-Ruba lysis 61 BPM Temperature Post-Dialysis 97 .5 degF August 04, 2023 In-Center Hemodialysis Treatment 7446-93-97N24:47:00.000Z 2128-16-29K42:01:07.000Z BP Sitting (Pre-Dialysis) 159/59 mmHg BP Sitting (Post-Dialysis) 124/78 mmHg Concurrent Access: falseAV Fistula Upper Arm (Left) Arterial BP Standing (Pre-Dialysis) 151/53 mmHg Sitting Heart Rate Post-Dialysis 66 BPM Sitting Heart Rate Pre-Dialysis 59 BPM Temperatu re Post-Dialysis 97 degF Standing Heart Rate Pre-Dialysis 67 BPM Temperature Pre-Dialysis 97.6 degF August 02, 2023 In-Center Hemodialysis Treatment 1022-81-11O50:41:07.000Z 3275-10-39O63:18:07.000Z BP Sitting (Pre-Dialysis) 157/70 mmHg BP Sitting (Post-Dialysis) 124/78 mmHg Concurrent Access: falseAV Fistula Upper Arm (Left) Arterial Sitting Heart Rate Pre-Dialysis 60 BPM Sitting H eart Rate Post-Dialysis 56 BPM Temperature Pre-Dialysis 97.9 degF Temperature Post -Dialysis 97.6 degF July 31, 2023 In-Center Hemodialysis Treatment 2578-35-26K17:44:15.000Z 2762-15-08I02:18:15.000Z BP Sitting (Pre-Dialysis) 174/56 mmHg BP Sitting (Post-Dialysis) 119/51 mmHg Concurrent Access: falseAV Fistula Upper Arm (Left) Arterial Sitting Heart Rate Pre-Dialysis 60 BPM Sitting H eart Rate Post-Dialysis 64 BPM Temperature Pre-Dialysis 97.2 degF Temperature Post -Dialysis 98.1 degF July 28, 2023 In-Center Hemodialysis Treatment 3096-78-76G98:37:39.000Z 3023-48-75Y90:10:40.000Z BP Sitting (Pre-Dialysis) 147/60 mmHg BP Sitting (Post-Dialysis) 147/66 mmHg Concurrent Access: falseAV Fistula Upper Arm (Left) Arterial Sitting Heart Rate Pre-Dialysis 77 BPM BP Standing (Post-Dialysis) 136/48 mmHg Temperature Pre-Dialysis 97.8 degF Sitting Heart Ra te Post-Dialysis 59 BPM Standing Heart Rate Post-Ruba lysis 58 BPM Temperature Post-Dialysis 97 .6 degF July 26, 2023 In-Center Hemodialysis Treatment 0314-90-97W82:40:00.000Z 0232-18-35U96:11:40.000Z BP Sitting (Pre-Dialysis) 162/75 mmHg BP Sitting (Post-Dialysis) 115/88 mmHg Concurrent Access: falseAV Fistula Upper Arm (Left) Arterial BP Standing (Pre-Dialysis) 156/66 mmHg Sitti ng Heart Rate Post-Dialysis 92 BPM Sitting Heart Rate Pre-Dialysis 62 BPM Temperatu re Post-Dialysis 97.4 degF Standing Heart Rate Pre-Dialysis 63 BPM Temperature Pre-Dialysis 97.8 degF July 24, 2023 In-Center Hemodialysis Treatment 4964-53-86N16:47:39.000Z 6179-08-92W84:08:40.000Z BP Sitting (Pre-Dialysis) 157/65 mmHg BP Sitting [...] degF July 21, 2023 In-Center Hemodialysis Treatment 8642-97-47R98:36:00.000Z 6841-98-70T82:11:07.000Z BP Sitting (Pre-Dialysis) 156/70 mmHg BP Sitting (Post-Dialysis) 100/49 mmHg Concurrent Access: falseAV Fistula Upper Arm (Left) Arterial BP Standing (Pre-Dialysis) 148/73 mmHg BP Standing (P ost-Dialysis) 100/48 mmHg Sitting Heart Rate Pre-Dialysis 59 BPM Sitting Heart Rate Post-Dialysis 57 BPM Standing Heart Rate Pre-Dialysis 61 BPM Standing Heart Rate Post-Dialysis 56 BPM Temperature Pre-Dialysis 97.6 degF Temperature Post -Dialysis 97.8 degF July 19, 2023 In-Center Hemodialysis Treatment 1900-81-88N78:39:00.000Z 9378-14-45C77:10:31.000Z BP Sitting (Pre-Dialysis) 136/57 mmHg BP Sitting [...] degF July 17, 2023 In-Center Hemodialysis Treatment 0355-08-96G14:26:31.000Z 2680-00-92Y04:46:32.000Z BP Sitting (Pre-Dialysis) 164/64 mmHg BP Sitting (Post-Dialysis) 142/68 mmHg Concurrent Access: falseAV Fistula Upper Arm (Left) Arterial Sitting Heart Rate Pre-Dialysis 61 BPM BP Standing (Post-Dialysis) 138/61 mmHg Temperature Pre-Dialysis 97.9 degF Sitting Heart Ra te Post-Dialysis 78 BPM Standing Heart Rate Post-Ruba lysis 62 BPM Temperature Post-Dialysis 97 .8 degF July 14, 2023 In-Center Hemodialysis Treatment 0836-82-94K82:31:00.000Z 6826-07-43P20:01:19.000Z BP Sitting (Pre-Dialysis) 141/55 mmHg BP Sitting (Post-Dialysis) 109/63 mmHg Concurrent Access: falseAV Fistula Upper Arm (Left) Arterial Sitting Heart Rate Pre-Dialysis 59 BPM Sitting H eart Rate Post-Dialysis 51 BPM Temperature Pre-Dialysis 98.1 degF Temperature Post -Dialysis 97.9 degF July 12, 2023 In-Center Hemodialysis Treatment 7630-43-22Z70:38:00.000Z 7624-00-80F85:10:19.000Z BP Sitting (Pre-Dialysis) 101/73 mmHg BP Sitting (Post-Dialysis) 118/55 mmHg Concurrent Access: falseAV Fistula Upper Arm (Left) Arterial BP Standing (Pre-Dialysis) 116/93 mmHg BP Standing (P ost-Dialysis) 112/47 mmHg Sitting Heart Rate Pre-Dialysis 63 BPM Sitting Heart Rate Post-Dialysis 47 BPM Standing Heart Rate Pre-Dialysis 70 BPM Standing Heart Rate Post-Dialysis 48 BPM Temperature Pre-Dialysis 97.9 degF July 10, 2023 In-Center Hemodialysis Treatment 9514-65-71N59:45:19.000Z 0685-95-96Q26:17:19.000Z BP Sitting (Pre-Dialysis) 176/68 mmHg BP Sitting (Post-Dialysis) 170/58 mmHg Concurrent Access: falseAV Fistula Upper Arm (Left) Arterial Sitting Heart Rate Pre-Dialysis 55 BPM Sitting H eart Rate Post-Dialysis 54 BPM Temperature Pre-Dialysis 97.6 degF Temperature Post -Dialysis 97.6 degF July 07, 2023 In-Center Hemodialysis Treatment 2467-73-38N14:40:00.000Z 6372-06-83Q86:14:09.000Z BP Sitting (Pre-Dialysis) 175/67 mmHg BP Sitting (Post-Dialysis) 160/64 mmHg Concurrent Access: falseAV Fistula Upper Arm (Left) Arterial Sitting Heart Rate Pre-Dialysis 55 BPM Sitting H eart Rate Post-Dialysis 51 BPM Temperature Pre-Dialysis 97.6 degF Temperature Post -Dialysis 97.7 degF July 05, 2023 In-Center Hemodialysis Treatment [id number]:24:00.000Z 2557-43-43R99:57:09.000Z BP Sitting (Pre-Dialysis) 163/69 mmHg BP Sitting (Post-Dialysis) 129/47 mmHg Concurrent Access: falseAV Fistula Upper Arm (Left) Arterial Sitting Heart Rate Pre-Dialysis 56 BPM Sitting H eart Rate Post-Dialysis 49 BPM Temperature Pre-Dialysis 97.3 degF Temperature Post -Dialysis 97.8 degF July 03, 2023 In-Center Hemodialysis Treatment [id number]:46:08.000Z 6647-51-42C13:19:09.000Z BP Sitting (Pre-Dialysis) 184/67 mmHg BP Sitting (Post-Dialysis) 127/43 mmHg Concurrent Access: falseAV Fistula Upper Arm (Left) Arterial Sitting Heart Rate Pre-Dialysis 53 BPM BP Standing (Post-Dialysis) 146/51 mmHg Temperature Pre-Dialysis 97.6 degF Sitting Heart Ra te Post-Dialysis 53 BPM Standing Heart Rate Post-Ruba lysis 52 BPM Temperature Post-Dialysis 97 .6 degF June 30, 2023 In-Center Hemodialysis Treatment 2764-00-28P78:41:28.000Z 3957-34-21A19:57:28.000Z BP Sitting (Pre-Dialysis) 173/69 mmHg BP Sitting (Post-Dialysis) 115/55 mmHg Concurrent Access: falseAV Fistula Upper Arm (Left) Arterial Sitting Heart Rate Pre-Dialysis 74 BPM Sitting H eart Rate Post-Dialysis 70 BPM Temperature Pre-Dialysis 97.8 degF Temperature Post -Dialysis 97.8 degF June 23, 2023 In-Center Hemodialysis Treatment [id number]:44:00.000Z 4097-40-50H48:23:28.000Z BP Sitting (Pre-Dialysis) 153/93 mmHg BP Sitting [...] degF June 21, 2023 In-Center Hemodialysis Treatment [id number]:39:00.000Z 2507-92-43V29:12:28.000Z BP Sitting (Pre-Dialysis) 183/73 mmHg BP Sitting (Post-Dialysis) 140/57 mmHg Concurrent Access: falseAV Fistula Upper Arm (Left) Arterial Sitting Heart Rate Pre-Dialysis 66 BPM BP Standing (Post-Dialysis) 143/62 mmHg Temperature Pre-Dialysis 97.9 degF Sitting Heart Ra te Post-Dialysis 62 BPM Standing Heart Rate Post-Ruba lysis 60 BPM Temperature Post-Dialysis 97 .4 degF June 19, 2023 In-Center Hemodialysis Treatment 3568-25-34H32:44:00.000Z 4402-18-22J68:19:28.000Z BP Sitting (Pre-Dialysis) 169/70 mmHg BP Sitting (Post-Dialysis) 146/61 mmHg Concurrent Access: falseAV Fistula Upper Arm (Left) Arterial BP Standing (Pre-Dialysis) 163/67 mmHg Sitti ng Heart Rate Post-Dialysis 59 BPM Sitting Heart Rate Pre-Dialysis 61 BPM Temperatu re Post-Dialysis 97.6 degF Standing Heart Rate Pre-Dialysis 62 BPM Temperature Pre-Dialysis 97.6 degF June 16, 2023 In-Center Hemodialysis Treatment 4076-62-18T33:40:39.000Z 8875-12-23A71:12:39.000Z BP Sitting (Pre-Dialysis) 122/63 mmHg BP Sitting (Post-Dialysis) 131/58 mmHg Concurrent Access: falseAV Fistula Upper Arm (Left) Arterial Sitting Heart Rate Pre-Dialysis 68 BPM Sitting H eart Rate Post-Dialysis 59 BPM Temperature Pre-Dialysis 97.8 degF Temperature Post -Dialysis 97.6 degF June 14, 2023 In-Center Hemodialysis Treatment 1775-37-08Y18:33:00.000Z 8559-63-98F64:09:40.000Z BP Sitting (Pre-Dialysis) 177/64 mmHg BP Sitting (Post-Dialysis) 151/61 mmHg Concurrent Access: falseAV Fistula Upper Arm (Left) Arterial Sitting Heart Rate Pre-Dialysis 65 BPM BP Standing (Post-Dialysis) 141/57 mmHg Temperature Pre-Dialysis 97.4 degF Sitting Heart Ra te Post-Dialysis 57 BPM Standing Heart Rate Post-Ruba lysis 59 BPM Temperature Post-Dialysis 97 .1 degF June 12, 2023 In-Center Hemodialysis Treatment 2119-05-07G38:45:39.000Z 4476-57-93L64:20:39.000Z BP Sitting (Pre-Dialysis) 149/71 mmHg BP Sitting (Post-Dialysis) 154/72 mmHg Concurrent Access: falseAV Fistula Upper Arm (Left) Arterial Sitting Heart Rate Pre-Dialysis 75 BPM Sitting H eart Rate Post-Dialysis 65 BPM Temperature Pre-Dialysis 97.6 degF Temperature Post -Dialysis 97.6 degF June 09, 2023 In-Center Hemodialysis Treatment 3464-40-77B78:41:00.000Z 5193-29-17R81:49:21.000Z BP Sitting (Pre-Dialysis) 157/59 mmHg BP Sitting [...] degF June 07, 2023 In-Center Hemodialysis Treatment 6050-55-00O54:44:00.000Z 5255-03-85A67:16:10.000Z BP Sitting (Pre-Dialysis) 158/61 mmHg BP Sitting (Post-Dialysis) 155/95 mmHg Concurrent Access: falseAV Fistula Upper Arm (Left) Arterial BP Standing (Pre-Dialysis) 159/62 mmHg Sitti ng Heart Rate Post-Dialysis 65 BPM Sitting Heart Rate Pre-Dialysis 57 BPM Temperatu re Post-Dialysis 97.8 degF Standing Heart Rate Pre-Dialysis 56 BPM Temperature Pre-Dialysis 97.6 degF June 05, 2023 In-Center Hemodialysis Treatment 5290-20-36V21:43:09.000Z 4337-86-07Y66:16:10.000Z BP Sitting (Pre-Dialysis) 155/50 mmHg BP Sitting (Post-Dialysis) 140/63 mmHg Concurrent Access: falseAV Fistula Upper Arm (Left) Arterial BP Standing (Pre-Dialysis) 181/65 mmHg Sitti ng Heart Rate Post-Dialysis 52 BPM Sitting Heart Rate Pre-Dialysis 56 BPM Temperatu re Post-Dialysis 97.6 degF Standing Heart Rate Pre-Dialysis 58 BPM Temperature Pre-Dialysis 97.6 degF June 02, 2023 In-Center Hemodialysis Treatment 1836-14-92J05:32:21.000Z 3649-15-45Q46:02:22.000Z BP Sitting (Pre-Dialysis) 158/58 mmHg BP Sitting (Post-Dialysis) 141/67 mmHg Concurrent Access: falseAV Fistula Upper Arm (Left) Arterial Sitting Heart Rate Pre-Dialysis 56 BPM Sitting H eart Rate Post-Dialysis 52 BPM Temperature Pre-Dialysis 97.1 degF Temperature Post -Dialysis 97.2 degF May 31, 2023 In-Center Hemodialysis Treatment 0212-72-58C87:37:00.000Z 0207-98-63C61:09:22.000Z BP Sitting (Pre-Dialysis) 155/122 mmHg BP Sitting (Post-Dialysis) 142/63 mmHg Concurrent Access: falseAV Fistula Upper Arm (Left) Arterial BP Standing (Pre-Dialysis) 176/102 mmHg Sitti ng Heart Rate Post-Dialysis 60 BPM Sitting Heart Rate Pre-Dialysis 61 BPM Temperatu re Post-Dialysis 97.6 degF Standing Heart Rate Pre-Dialysis 56 BPM Temperature Pre-Dialysis 97.9 degF May 29, 2023 In-Center Hemodialysis Treatment 5803-41-14V19:45:21.000Z 3346-45-98V01:14:22.000Z BP Sitting (Pre-Dialysis) 181/67 mmHg BP Sitting [...] degF May 26, 2023 In-Center Hemodialysis Treatment 5111-27-22T30:41:00.000Z 3609-28-33C25:13:52.000Z BP Sitting (Pre-Dialysis) 191/71 mmHg BP Sitting (Post-Dialysis) 174/81 mmHg Concurrent Access: falseAV Fistula Upper Arm (Left) Arterial BP Standing (Pre-Dialysis) 175/119 mmHg Sitti ng Heart Rate Post-Dialysis 55 BPM Sitting Heart Rate Pre-Dialysis 58 BPM Temperatu re Post-Dialysis 97.6 degF Standing Heart Rate Pre-Dialysis 59 BPM Temperature Pre-Dialysis 97.3 degF May 24, 2023 In-Center Hemodialysis Treatment 1437-50-93O10:39:00.000Z 1750-31-39L81:17:52.000Z BP Sitting (Pre-Dialysis) 167/55 mmHg BP Sitting (Post-Dialysis) 206/184 mmHg Concurrent Access: falseAV Fistula Upper Arm (Left) Arterial BP Standing (Pre-Dialysis) 154/61 mmHg BP Standing (P ost-Dialysis) 146/80 mmHg Sitting Heart Rate Pre-Dialysis 69 BPM Sitting Heart Rate Post-Dialysis 75 BPM Standing Heart Rate Pre-Dialysis 67 BPM Standing Heart Rate Post-Dialysis 69 BPM Temperature Pre-Dialysis 97.8 degF Temperature Post -Dialysis 97.9 degF May 22, 2023 In-Center Hemodialysis Treatment 3743-81-39W10:37:00.000Z 2343-36-62O71:10:51.000Z BP Sitting (Pre-Dialysis) 129/94 mmHg BP Sitting (Post-Dialysis) 161/68 mmHg Concurrent Access: falseAV Fistula Upper Arm (Left) Arterial BP Standing (Pre-Dialysis) 187/66 mmHg Sitti ng Heart Rate Post-Dialysis 70 BPM Sitting Heart Rate Pre-Dialysis 73 BPM Temperatu re Post-Dialysis 97.6 degF Standing Heart Rate Pre-Dialysis 72 BPM Temperature Pre-Dialysis 97.3 degF May 19, 2023 In-Center Hemodialysis Treatment 2073-28-66M03:41:41.000Z 9162-59-46T66:00:41.000Z BP Sitting (Pre-Dialysis) 173/63 mmHg BP Sitting (Post-Dialysis) 159/69 mmHg Concurrent Access: falseAV Fistula Upper Arm (Left) Arterial Sitting Heart Rate Pre-Dialysis 73 BPM Sitting H eart Rate Post-Dialysis 71 BPM Temperature Pre-Dialysis 97.8 degF Temperature Post -Dialysis 97.8 degF May 17, 2023 In-Center Hemodialysis Treatment 1020-04-18N03:41:00.000Z 0590-82-37M28:42:28.000Z BP Sitting (Pre-Dialysis) 175/59 mmHg BP Sitting (Post-Dialysis) 141/46 mmHg Concurrent Access: falseAV Fistula Upper Arm (Left) Arterial Sitting Heart Rate Pre-Dialysis 64 BPM Sitting H eart Rate Post-Dialysis 60 BPM Temperature Pre-Dialysis 97.9 degF Temperature Post -Dialysis 97.7 degF May 12, 2023 In-Center Hemodialysis Treatment 8898-84-88T32:43:00.000Z 4167-23-64G01:18:01.000Z BP Sitting (Pre-Dialysis) 149/72 mmHg BP Sitting (Post-Dialysis) 150/68 mmHg Concurrent Access: falseAV Fistula Upper Arm (Left) Arterial BP Standing (Pre-Dialysis) 157/83 mmHg Sitti ng Heart Rate Post-Dialysis 54 BPM Sitting Heart Rate Pre-Dialysis 51 BPM Temperatu re Post-Dialysis 98.2 degF Standing Heart Rate Pre-Dialysis 53 BPM Temperature Pre-Dialysis 97.8 degF May 10, 2023 In-Center Hemodialysis Treatment 6862-57-62C32:45:00.000Z 6552-31-12S91:11:00.000Z BP Sitting (Pre-Dialysis) 181/87 mmHg BP Sitting (Post-Dialysis) 120/90 mmHg Concurrent Access: falseAV Fistula Upper Arm (Left) Arterial Sitting Heart Rate Pre-Dialysis 58 BPM Sitting H eart Rate Post-Dialysis 63 BPM Temperature Pre-Dialysis 97.9 degF Temperature Post -Dialysis 97.9 degF May 08, 2023 In-Center Hemodialysis Treatment 2622-80-34N44:38:00.000Z 7989-84-97J29:13:01.000Z BP Sitting (Pre-Dialysis) 182/64 mmHg BP Sitting (Post-Dialysis) 110/73 mmHg Concurrent Access: falseAV Fistula Upper Arm (Left) Arterial Sitting Heart Rate Pre-Dialysis 63 BPM Sitting H eart Rate Post-Dialysis 67 BPM Temperature Pre-Dialysis 97.6 degF Temperature Post -Dialysis 98.2 degF May 05, 2023 In-Center Hemodialysis Treatment 1150-02-82L88:35:00.000Z 5137-76-63L54:14:08.000Z BP Sitting (Pre-Dialysis) 204/81 mmHg BP Sitting (Post-Dialysis) 182/67 mmHg Concurrent Access: falseAV Fistula Upper Arm (Left) Arterial BP Standing (Pre-Dialysis) 171/82 mmHg Sitti ng Heart Rate Post-Dialysis 57 BPM Sitting Heart Rate Pre-Dialysis 64 BPM Temperatu re Post-Dialysis 97.5 degF Standing Heart Rate Pre-Dialysis 68 BPM Temperature Pre-Dialysis 97.9 degF May 03, 2023 In-Center Hemodialysis Treatment 8157-18-25R86:49:08.000Z 9713-57-97G00:22:08.000Z BP Sitting (Pre-Dialysis) 204/76 mmHg BP Sitting [...] degF May 01, 2023 In-Center Hemodialysis Treatment 1809-22-55W08:39:00.000Z 5004-49-44L41:13:08.000Z BP Sitting (Pre-Dialysis) 136/79 mmHg BP Sitting (Post-Dialysis) 160/75 mmHg Concurrent Access: falseAV Fistula Upper Arm (Left) Arterial Sitting Heart Rate Pre-Dialysis 59 BPM BP Standing (Post-Dialysis) 149/64 mmHg Temperature Pre-Dialysis 97.6 degF Sitting Heart Ra te Post-Dialysis 69 BPM Standing Heart Rate Post-Ruba lysis 57 BPM Temperature Post-Dialysis 97 .6 degF April 28, 2023 In-Center Hemodialysis Treatment 9660-66-63R80:49:21.000Z 5791-38-89W93:15:21.000Z BP Sitting (Pre-Dialysis) 121/58 mmHg BP Sitting (Post-Dialysis) 180/51 mmHg Concurrent Access: falseAV Fistula Upper Arm (Left) Arterial Sitting Heart Rate Pre-Dialysis 67 BPM Sitting H eart Rate Post-Dialysis 66 BPM Temperature Pre-Dialysis 97.8 degF Temperature Post -Dialysis 97.8 degF April 26, 2023 In-Center Hemodialysis Treatment 4295-58-02E53:11:00.000Z 6540-90-34C22:54:00.000Z BP Sitting (Pre-Dialysis) 201/79 mmHg BP Sitting (Post-Dialysis) 121/62 mmHg Concurrent Access: falseAV Fistula Upper Arm (Left) Arterial Sitting Heart Rate Pre-Dialysis 64 BPM BP Standing (Post-Dialysis) 124/62 mmHg Temperature Pre-Dialysis 97.9 degF Sitting Heart Ra te Post-Dialysis 60 BPM Standing Heart Rate Post-Ruba lysis 59 BPM Temperature Post-Dialysis 97 .5 degF April 24, 2023 In-Center Hemodialysis Treatment 3330-95-06F71:42:21.000Z 2932-44-04Z91:11:22.000Z BP Sitting (Pre-Dialysis) 175/75 mmHg BP Sitting (Post-Dialysis) 135/69 mmHg Concurrent Access: falseAV Fistula Upper Arm (Left) Arterial Sitting Heart Rate Pre-Dialysis 52 BPM Sitting H eart Rate Post-Dialysis 55 BPM Temperature Pre-Dialysis 97.6 degF Temperature Post -Dialysis 97.9 degF April 21, 2023 In-Center Hemodialysis Treatment 2639-50-90A84:44:14.000Z 5317-88-31B06:13:15.000Z BP Sitting (Pre-Dialysis) 179/75 mmHg BP Sitting (Post-Dialysis) 121/53 mmHg Concurrent Access: falseAV Fistula Upper Arm (Left) Arterial Sitting Heart Rate Pre-Dialysis 74 BPM BP Standing (Post-Dialysis) 110/49 mmHg Temperature Pre-Dialysis 97.8 degF Sitting Heart Ra te Post-Dialysis 65 BPM Standing Heart Rate Post-Ruba lysis 67 BPM Temperature Post-Dialysis 97 .6 degF April 19, 2023 In-Center Hemodialysis Treatment 6357-63-93O91:45:14.000Z 0805-30-49N92:21:15.000Z BP Sitting (Pre-Dialysis) 197/65 mmHg BP Sitting (Post-Dialysis) 128/73 mmHg Concurrent Access: falseAV Fistula Upper Arm (Left) Arterial BP Standing (Pre-Dialysis) 127/64 mmHg BP Standing (P ost-Dialysis) 117/44 mmHg Sitting Heart Rate Pre-Dialysis 69 BPM Sitting Heart Rate Post-Dialysis 64 BPM Standing Heart Rate Pre-Dialysis 66 BPM Standing Heart Rate Post-Dialysis 60 BPM Temperature Pre-Dialysis 97.9 degF Temperature Post -Dialysis 97.9 degF April 17, 2023 In-Center Hemodialysis Treatment 5190-86-78K42:43:00.000Z 2766-99-12P79:14:15.000Z BP Sitting (Pre-Dialysis) 150/67 mmHg BP Sitting (Post-Dialysis) 133/60 mmHg Concurrent Access: falseAV Fistula Upper Arm (Left) Arterial BP Standing (Pre-Dialysis) 168/69 mmHg BP Standing (P ost-Dialysis) 149/59 mmHg Sitting Heart Rate Pre-Dialysis 58 BPM Sitting Heart Rate Post-Dialysis 60 BPM Standing Heart Rate Pre-Dialysis 64 BPM Standing Heart Rate Post-Dialysis 60 BPM Temperature Pre-Dialysis 97.6 degF Temperature Post -Dialysis 97.9 degF April 14, 2023 In-Center Hemodialysis Treatment 8373-37-46C70:41:40.000Z 9605-68-98A78:14:40.000Z BP Sitting (Pre-Dialysis) 138/75 mmHg BP Sitting (Post-Dialysis) 157/53 mmHg Concurrent Access: falseAV Fistula Upper Arm (Left) Arterial Sitting Heart Rate Pre-Dialysis 60 BPM BP Standing (Post-Dialysis) 126/55 mmHg Temperature Pre-Dialysis 97.8 degF Sitting Heart Ra te Post-Dialysis 51 BPM Standing Heart Rate Post-Ruba lysis 55 BPM Temperature Post-Dialysis 97 .6 degF April 12, 2023 In-Center Hemodialysis Treatment 3214-94-07G57:43:46.000Z 1130-93-67F36:17:46.000Z BP Sitting (Pre-Dialysis) 113/83 mmHg BP Sitting (Post-Dialysis) 130/92 mmHg Concurrent Access: falseAV Fistula Upper Arm (Left) Arterial Sitting Heart Rate Pre-Dialysis 54 BPM BP Standi ng (Post-Dialysis) 132/63 mmHg Temperature Pre-Dialysis 97 degF Sitting Heart Ra te Post-Dialysis 64 BPM Standing Heart Rate Post-Ruba lysis 65 BPM Temperature Post-Dialysis 97 .8 degF April 10, 2023 In-Center Hemodialysis Treatment 0735-92-48V92:40:40.000Z 0923-82-11K41:11:40.000Z BP Sitting (Pre-Dialysis) 56/58 mmHg BP Sitting (Post-Dialysis) 128/57 mmHg Concurrent Access: falseAV Fistula Upper Arm (Left) Arterial Sitting Heart Rate Pre-Dialysis 60 BPM Sitting H eart Rate Post-Dialysis 56 BPM Temperature Pre-Dialysis 97 degF Temperature Post -Dialysis 97.6 degF April 07, 2023 In-Center Hemodialysis Treatment 7925-33-32D87:34:00.000Z 4797-32-02C77:06:18.000Z BP Sitting (Pre-Dialysis) 182/67 mmHg BP Sitting (Post-Dialysis) 108/63 mmHg Concurrent Access: falseAV Fistula Upper Arm (Left) Arterial Sitting Heart Rate Pre-Dialysis 59 BPM Sitting H eart Rate Post-Dialysis 57 BPM Temperature Pre-Dialysis 97.1 degF Temperature Post -Dialysis 97 degF April 05, 2023 In-Center Hemodialysis Treatment 7689-82-87E47:59:17.000Z 0518-93-81B44:15:17.000Z BP Sitting (Pre-Dialysis) 190/79 mmHg BP Sitting (Post-Dialysis) 149/66 mmHg Concurrent Access: falseAV Fistula Upper Arm (Left) Arterial Sitting Heart Rate Pre-Dialysis 68 BPM Sitting H eart Rate Post-Dialysis 62 BPM Temperature Pre-Dialysis 97 degF Temperature Post -Dialysis 97 degF April 03, 2023 In-Center Hemodialysis Treatment 9687-95-02C50:48:00.000Z 8993-25-42R73:22:17.000Z BP Sitting (Pre-Dialysis) 166/62 mmHg BP Sitting (Post-Dialysis) 140/71 mmHg Concurrent Access: falseAV Fistula Upper Arm (Left) Arterial Sitting Heart Rate Pre-Dialysis 57 BPM Sitting H eart Rate Post-Dialysis 59 BPM Temperature Pre-Dialysis 97.6 degF Temperature Post -Dialysis 97.4 degF March 31, 2023 In-Center Hemodialysis Treatment 9821-16-20W45:41:07.000Z 9897-22-44U21:16:07.000Z BP Sitting (Pre-Dialysis) 162/65 mmHg BP Sitting (Post-Dialysis) 102/66 mmHg Concurrent Access: falseAV Fistula Upper Arm (Left) Arterial Sitting Heart Rate Pre-Dialysis 60 BPM BP Standi ng (Post-Dialysis) 131/59 mmHg Temperature Pre-Dialysis 97 degF Sitting Heart Ra te Post-Dialysis 62 BPM Standing Heart Rate Post-Ruba lysis 66 BPM Temperature Post-Dialysis 97 .4 degF March 28, 2023 In-Center Hemodialysis Treatment 7053-89-84E24:37:00.000Z 2119-85-64P49:01:57.000Z BP Sitting (Pre-Dialysis) 156/66 mmHg BP Sitting (Post-Dialysis) 124/64 mmHg Concurrent Access: falseAV Fistula Upper Arm (Left) Arterial Sitting Heart Rate Pre-Dialysis 62 BPM Sitting H eart Rate Post-Dialysis 58 BPM Temperature Pre-Dialysis 97 degF Temperature Post -Dialysis 97.6 degF March 26, 2023 In-Center Hemodialysis Treatment 5667-92-06K54:40:58.000Z 1945-81-46U16:14:57.000Z BP Sitting (Pre-Dialysis) 159/61 mmHg BP Sitting (Post-Dialysis) 123/51 mmHg Concurrent Access: falseAV Fistula Upper Arm (Left) Arterial Sitting Heart Rate Pre-Dialysis 61 BPM Sitting H eart Rate Post-Dialysis 58 BPM Temperature Pre-Dialysis 97.9 degF Temperature Post -Dialysis 97.4 degF March 24, 2023 In-Center Hemodialysis Treatment 7760-78-89O54:38:00.000Z 2179-82-67F75:16:30.000Z BP Sitting (Pre-Dialysis) 153/59 mmHg BP Sitting (Post-Dialysis) 124/48 mmHg Concurrent Access: falseAV Fistula Upper Arm (Left) Arterial Sitting Heart Rate Pre-Dialysis 62 BPM Sitting H eart Rate Post-Dialysis 52 BPM Temperature Pre-Dialysis 97 degF Temperature Post -Dialysis 97.9 degF March 22, 2023 In-Center Hemodialysis Treatment 6997-82-94O77:50:00.000Z 0034-50-44F51:23:51.000Z BP Sitting (Pre-Dialysis) 175/60 mmHg BP Sitting (Post-Dialysis) 111/83 mmHg Concurrent Access: falseAV Fistula Upper Arm (Left) Arterial Sitting Heart Rate Pre-Dialysis 60 BPM BP Standing (Post-Dialysis) 116/52 mmHg Temperature Pre-Dialysis 97.6 degF Sitting Heart Ra te Post-Dialysis 65 BPM Standing Heart Rate Post-Ruba lysis 61 BPM Temperature Post-Dialysis 98 .2 degF March 20, 2023 In-Center Hemodialysis Treatment 3267-92-27I54:06:00.000Z 8570-60-33E70:43:39.000Z BP Sitting (Pre-Dialysis) 102/63 mmHg BP Sitting (Post-Dialysis) 146/52 mmHg Concurrent Access: falseAV Fistula Upper Arm (Left) Arterial BP Standing (Pre-Dialysis) 174/64 mmHg Sitti ng Heart Rate Post-Dialysis 63 BPM Sitting Heart Rate Pre-Dialysis 55 BPM Temperatu re Post-Dialysis 97.3 degF Standing Heart Rate Pre-Dialysis 61 BPM Temperature Pre-Dialysis 97.6 degF March 17, 2023 In-Center Hemodialysis Treatment 4167-74-60Z28:38:24.000Z 8823-61-15X71:09:24.000Z BP Sitting (Pre-Dialysis) 144/56 mmHg BP Sitting [...] degF March 15, 2023 In-Center Hemodialysis Treatment 9887-50-30B85:42:24.000Z 5884-73-21K48:11:24.000Z BP Sitting (Pre-Dialysis) 153/59 mmHg BP Sitting (Post-Dialysis) 123/53 mmHg Concurrent Access: falseAV Fistula Upper Arm (Left) Arterial Sitting Heart Rate Pre-Dialysis 65 BPM BP Standi ng (Post-Dialysis) 117/48 mmHg Temperature Pre-Dialysis 97 degF Sitting Heart Ra te Post-Dialysis 58 BPM Standing Heart Rate Post-Ruba lysis 59 BPM Temperature Post-Dialysis 97 .4 degF March 13, 2023 In-Center Hemodialysis Treatment 1481-45-47E17:43:00.000Z 3555-66-71W16:15:24.000Z BP Sitting (Pre-Dialysis) 169/69 mmHg BP Sitting (Post-Dialysis) 144/61 mmHg Concurrent Access: falseAV Fistula Upper Arm (Left) Arterial Sitting Heart Rate Pre-Dialysis 65 BPM BP Standing (Post-Dialysis) 132/66 mmHg Temperature Pre-Dialysis 97.8 degF Sitting Heart Ra te Post-Dialysis 60 BPM Standing Heart Rate Post-Ruba lysis 65 BPM Temperature Post-Dialysis 97 .8 degF March 10, 2023 In-Center Hemodialysis Treatment 8022-32-86B06:42:00.000Z 5187-37-86I39:17:24.000Z BP Sitting (Pre-Dialysis) 153/62 mmHg BP Sitting (Post-Dialysis) 105/48 mmHg Concurrent Access: falseAV Fistula Upper Arm (Left) Arterial Sitting Heart Rate Pre-Dialysis 61 BPM Sitting H eart Rate Post-Dialysis 58 BPM Temperature Pre-Dialysis 97.9 degF Temperature Post -Dialysis 97.5 degF March 08, 2023 In-Center Hemodialysis Treatment 9977-57-26A35:47:23.000Z 1687-17-39N43:17:24.000Z BP Sitting (Pre-Dialysis) 153/55 mmHg BP Sitting (Post-Dialysis) 138/56 mmHg Concurrent Access: falseAV Fistula Upper Arm (Left) Arterial BP Standing (Pre-Dialysis) 141/54 mmHg Sitti ng Heart Rate Post-Dialysis 56 BPM Sitting Heart Rate Pre-Dialysis 56 BPM Temperatu re Post-Dialysis 97.8 degF Standing Heart Rate Pre-Dialysis 58 BPM Temperature Pre-Dialysis 97.8 degF March 06, 2023 In-Center Hemodialysis Treatment 5620-20-06O92:44:00.000Z 9778-44-85A28:18:24.000Z BP Sitting (Pre-Dialysis) 171/68 mmHg BP Sitting (Post-Dialysis) 141/58 mmHg Concurrent Access: falseAV Fistula Upper Arm (Left) Arterial Sitting Heart Rate Pre-Dialysis 70 BPM BP Standi ng (Post-Dialysis) 124/58 mmHg Temperature Pre-Dialysis 97 degF Sitting Heart Ra te Post-Dialysis 66 BPM Standing Heart Rate Post-Ruba lysis 70 BPM Temperature Post-Dialysis 97 .3 degF March 03, 2023 In-Center Hemodialysis Treatment 2149-63-46D41:27:00.000Z 7805-66-71C71:21:39.000Z BP Sitting (Pre-Dialysis) 161/62 mmHg BP Sitting [...] degF February 27, 2023 In-Center Hemodialysis Treatment 3580-72-33U53:45:00.000Z 9500-18-57V56:01:51.000Z BP Sitting (Pre-Dialysis) 161/67 mmHg BP Sitting (Post-Dialysis) 100/50 mmHg Concurrent Access: falseAV Fistula Upper Arm (Left) Arterial Sitting Heart Rate Pre-Dialysis 76 BPM BP Standi ng (Post-Dialysis) 98/64 mmHg Temperature Pre-Dialysis 97 degF Sitting Heart Ra te Post-Dialysis 77 BPM Standing Heart Rate Post-Ruba lysis 72 BPM Temperature Post-Dialysis 97 .5 degF February 24, 2023 In-Center Hemodialysis Treatment 6856-03-92N58:39:13.000Z 5487-31-30Z86:13:13.000Z BP Sitting (Pre-Dialysis) 165/64 mmHg BP Sitting (Post-Dialysis) 107/48 mmHg Concurrent Access: falseAV Fistula Upper Arm (Left) Arterial Sitting Heart Rate Pre-Dialysis 55 BPM BP Standing (Post-Dialysis) 109/50 mmHg Temperature Pre-Dialysis 97.8 degF Sitting Heart Ra te Post-Dialysis 60 BPM Standing Heart Rate Post-Ruba lysis 59 BPM Temperature Post-Dialysis 97 .8 degF February 22, 2023 In-Center Hemodialysis Treatment 8878-53-48V35:39:00.000Z 5423-06-54H64:11:13.000Z BP Sitting (Pre-Dialysis) 149/67 mmHg BP Sitting (Post-Dialysis) 127/67 mmHg Concurrent Access: falseAV Fistula Upper Arm (Left) Arterial BP Standing (Pre-Dialysis) 146/65 mmHg Sitti ng Heart Rate Post-Dialysis 59 BPM Sitting Heart Rate Pre-Dialysis 57 BPM Temperatu re Post-Dialysis 97.9 degF Standing Heart Rate Pre-Dialysis 57 BPM Temperature Pre-Dialysis 97.9 degF February 20, 2023 In-Center Hemodialysis Treatment 4696-85-25O60:49:00.000Z 0092-39-70H75:24:13.000Z BP Sitting (Pre-Dialysis) 174/69 mmHg BP Sitting (Post-Dialysis) 114/54 mmHg Concurrent Access: falseAV Fistula Upper Arm (Left) Arterial Sitting Heart Rate Pre-Dialysis 61 BPM BP Standing (Post-Dialysis) 109/55 mmHg Temperature Pre-Dialysis 97.5 degF Sitting Heart Ra te Post-Dialysis 61 BPM Standing Heart Rate Post-Ruba lysis 61 BPM Temperature Post-Dialysis 97 .3 degF February 17, 2023 In-Center Hemodialysis Treatment 9171-54-35U25:43:00.000Z 3451-50-83I63:13:15.000Z BP Sitting (Pre-Dialysis) 174/96 mmHg BP Sitting (Post-Dialysis) 110/86 mmHg Concurrent Access: falseAV Fistula Upper Arm (Left) Arterial Sitting Heart Rate Pre-Dialysis 67 BPM Sitting H eart Rate Post-Dialysis 85 BPM Temperature Pre-Dialysis 97.7 degF Temperature Post -Dialysis 98 degF February 15, 2023 In-Center Hemodialysis Treatment 1183-70-00I86:42:17.000Z 9993-20-94Z16:15:17.000Z BP Sitting (Pre-Dialysis) 173/61 mmHg BP Sitting (Post-Dialysis) 91/57 mmHg Concurrent Access: falseAV Fistula Upper Arm (Left) Arterial BP Standing (Pre-Dialysis) 161/64 mmHg Sitting Heart Rate Post-Dialysis 78 BPM Sitting Heart Rate Pre-Dialysis 62 BPM Temperatu re Post-Dialysis 97 degF Standing Heart Rate Pre-Dialysis 86 BPM Temperature Pre-Dialysis 97 degF February 13, 2023 In-Center Hemodialysis Treatment 0579-36-30Y85:24:00.000Z 8256-23-17Z38:33:16.000Z BP Sitting (Pre-Dialysis) 169/69 mmHg BP Sitting (Post-Dialysis) 131/51 mmHg Concurrent Access: falseAV Fistula Upper Arm (Left) Arterial Sitting Heart Rate Pre-Dialysis 57 BPM BP Standi ng (Post-Dialysis) 118/59 mmHg Temperature Pre-Dialysis 97 degF Sitting Heart Ra te Post-Dialysis 55 BPM Standing Heart Rate Post-Ruba lysis 57 BPM Temperature Post-Dialysis 97 .6 degF February 10, 2023 In-Center Hemodialysis Treatment 4929-94-57E85:51:00.000Z 1342-37-19W89:16:44.000Z BP Sitting (Pre-Dialysis) 109/62 mmHg BP Sitting (Post-Dialysis) 92/47 mmHg Concurrent Access: falseAV Fistula Upper Arm (Left) Arterial BP Standing (Pre-Dialysis) 126/59 mmHg BP Standing (P ost-Dialysis) 98/47 mmHg Sitting Heart Rate Pre-Dialysis 57 BPM Sitting Heart Rate Post-Dialysis 63 BPM Standing Heart Rate Pre-Dialysis 58 BPM Standing Heart Rate Post-Dialysis 63 BPM Temperature Pre-Dialysis 97.4 degF Temperature Post -Dialysis 97.3 degF February 08, 2023 In-Center Hemodialysis Treatment 3889-10-81E89:38:39.000Z 4407-42-51F33:12:40.000Z BP Sitting (Pre-Dialysis) 146/66 mmHg BP Sitting [...] degF February 06, 2023 In-Center Hemodialysis Treatment 8268-09-73O14:39:39.000Z 2522-55-28O36:13:39.000Z BP Sitting (Pre-Dialysis) 167/56 mmHg BP Sitting (Post-Dialysis) 123/48 mmHg Concurrent Access: falseAV Fistula Upper Arm (Left) Arterial BP Standing (Pre-Dialysis) 173/72 mmHg Sitti ng Heart Rate Post-Dialysis 60 BPM Sitting Heart Rate Pre-Dialysis 62 BPM Temperatu re Post-Dialysis 97.8 degF Standing Heart Rate Pre-Dialysis 65 BPM Temperature Pre-Dialysis 97.8 degF February 03, 2023 In-Center Hemodialysis Treatment 2078-65-93K30:44:00.000Z 3452-56-73E33:25:38.000Z BP Sitting (Pre-Dialysis) 130/58 mmHg BP Sitting (Post-Dialysis) 123/46 mmHg Concurrent Access: falseAV Fistula Upper Arm (Left) Arterial Sitting Heart Rate Pre-Dialysis 63 BPM Sitting H eart Rate Post-Dialysis 54 BPM Temperature Pre-Dialysis 98.6 degF February 01, 2023 In-Center Hemodialysis Treatment 1842-16-54W24:44:38.000Z 0607-66-25V63:12:38.000Z BP Sitting (Pre-Dialysis) 153/57 mmHg BP Sitting (Post-Dialysis) 124/62 mmHg Concurrent Access: falseAV Fistula Upper Arm (Left) Arterial Sitting Heart Rate Pre-Dialysis 66 BPM BP Standing (Post-Dialysis) 110/53 mmHg Temperature Pre-Dialysis 97.9 degF Sitting Heart Ra te Post-Dialysis 62 BPM Standing Heart Rate Post-Ruba lysis 62 BPM Temperature Post-Dialysis 97 degF January 30, 2023 In-Center Hemodialysis Treatment 6864-80-86V78:30:00.000Z 1494-53-96I81:01:27.000Z BP Sitting (Pre-Dialysis) 157/63 mmHg BP Sitting (Post-Dialysis) 94/48 mmHg Concurrent Access: falseAV Fistula Upper Arm (Left) Arterial BP Standing (Pre-Dialysis) 163/67 mmHg Sitti ng Heart Rate Post-Dialysis 57 BPM Sitting Heart Rate Pre-Dialysis 57 BPM Temperatu re Post-Dialysis 97.9 degF Standing Heart Rate Pre-Dialysis 59 BPM Temperature Pre-Dialysis 98 degF January 27, 2023 In-Center Hemodialysis Treatment 3015-26-83D62:38:00.000Z 7326-92-81U24:12:17.000Z BP Sitting (Pre-Dialysis) 146/56 mmHg BP Sitting (Post-Dialysis) 106/44 mmHg Concurrent Access: falseAV Fistula Upper Arm (Left) Arterial Sitting Heart Rate Pre-Dialysis 60 BPM Sitting H eart Rate Post-Dialysis 59 BPM Temperature Pre-Dialysis 97.1 degF Temperature Post -Dialysis 97 degF January 25, 2023 In-Center Hemodialysis Treatment [id number]:40:00.000Z 8674-70-85C39:59:17.000Z BP Sitting (Pre-Dialysis) 174/74 mmHg BP Sitting (Post-Dialysis) 107/57 mmHg Concurrent Access: falseAV Fistula Upper Arm (Left) Arterial BP Standing (Pre-Dialysis) 161/70 mmHg Sitti ng Heart Rate Post-Dialysis 60 BPM Sitting Heart Rate Pre-Dialysis 66 BPM Temperatu re Post-Dialysis 97.4 degF Standing Heart Rate Pre-Dialysis 63 BPM Temperature Pre-Dialysis 97 degF January 23, 2023 In-Center Hemodialysis Treatment [id number]:39:00.000Z 8025-77-74W83:06:17.000Z BP Sitting (Pre-Dialysis) 160/59 mmHg BP Sitting (Post-Dialysis) 94/46 mmHg Concurrent Access: falseAV Fistula Upper Arm (Left) Arterial BP Standing (Pre-Dialysis) 157/60 mmHg Sitti ng Heart Rate Post-Dialysis 61 BPM Sitting Heart Rate Pre-Dialysis 62 BPM Temperatu re Post-Dialysis 97.2 degF Standing Heart Rate Pre-Dialysis 62 BPM Temperature Pre-Dialysis 97.8 degF January 20, 2023 In-Center Hemodialysis Treatment 7391-16-31N45:39:00.000Z 6497-88-15K38:14:37.000Z BP Sitting (Pre-Dialysis) 132/60 mmHg BP Sitting (Post-Dialysis) 131/57 mmHg Concurrent Access: falseAV Fistula Upper Arm (Left) Arterial Sitting Heart Rate Pre-Dialysis 57 BPM Sitting H eart Rate Post-Dialysis 60 BPM Temperature Pre-Dialysis 97.4 degF Temperature Post -Dialysis 97 degF January 18, 2023 In-Center Hemodialysis Treatment 6495-78-05H34:41:00.000Z 0044-05-50E45:13:37.000Z BP Sitting (Pre-Dialysis) 152/64 mmHg BP Sitting (Post-Dialysis) 117/54 mmHg Concurrent Access: falseAV Fistula Upper Arm (Left) Arterial Sitting Heart Rate Pre-Dialysis 58 BPM BP Standing (Post-Dialysis) 117/54 mmHg Temperature Pre-Dialysis 97.5 degF Sitting Heart Ra te Post-Dialysis 60 BPM Standing Heart Rate Post-Ruba lysis 60 BPM Temperature Post-Dialysis 97 .9 degF January 16, 2023 In-Center Hemodialysis Treatment 7298-51-82W83:22:00.000Z 5564-95-78G35:00:37.000Z BP Sitting (Pre-Dialysis) 148/76 mmHg BP Sitting (Post-Dialysis) 105/49 mmHg Concurrent Access: falseAV Fistula Upper Arm (Left) Arterial BP Standing (Pre-Dialysis) 136/56 mmHg Sitti ng Heart Rate Post-Dialysis 58 BPM Sitting Heart Rate Pre-Dialysis 61 BPM Temperatu re Post-Dialysis 97.5 degF Standing Heart Rate Pre-Dialysis 59 BPM Temperature Pre-Dialysis 97.3 degF January 13, 2023 In-Center Hemodialysis Treatment 9415-01-51Q24:39:00.000Z 0489-29-41T25:12:08.000Z BP Sitting (Pre-Dialysis) 155/65 mmHg BP Sitting [...] degF January 11, 2023 In-Center Hemodialysis Treatment 9262-32-96E04:41:00.000Z 6574-17-14F09:16:15.000Z BP Sitting (Pre-Dialysis) 153/68 mmHg BP Sitting [...] degF January 09, 2023 In-Center Hemodialysis Treatment 8742-12-02T76:43:00.000Z 7396-45-22L49:17:15.000Z BP Sitting (Pre-Dialysis) 150/66 mmHg BP Sitting (Post-Dialysis) 118/54 mmHg Concurrent Access: falseAV Fistula Upper Arm (Left) Arterial Sitting Heart Rate Pre-Dialysis 58 BPM BP Standing (Post-Dialysis) 108/52 mmHg Temperature Pre-Dialysis 97.6 degF Sitting Heart Ra te Post-Dialysis 69 BPM Standing Heart Rate Post-Ruba lysis 59 BPM Temperature Post-Dialysis 97 .2 degF January 06, 2023 In-Center Hemodialysis Treatment 4952-91-96T90:40:00.000Z 6668-20-79K49:16:21.000Z BP Sitting (Pre-Dialysis) 135/59 mmHg BP Sitting (Post-Dialysis) 122/46 mmHg Concurrent Access: falseAV Fistula Upper Arm (Left) Arterial BP Standing (Pre-Dialysis) 99/65 mmHg Sitting Heart Rate Post-Dialysis 55 BPM Sitting Heart Rate Pre-Dialysis 60 BPM Temperatu re Post-Dialysis 97 degF Standing Heart Rate Pre-Dialysis 62 BPM Temperature Pre-Dialysis 97 degF January 04, 2023 In-Center Hemodialysis Treatment 5407-81-64G31:45:00.000Z 1958-56-74O80:17:21.000Z BP Sitting (Pre-Dialysis) 153/69 mmHg BP Sitting (Post-Dialysis) 115/53 mmHg Concurrent Access: falseAV Fistula Upper Arm (Left) Arterial Sitting Heart Rate Pre-Dialysis 59 BPM BP Standing (Post-Dialysis) 115/51 mmHg Temperature Pre-Dialysis 97.8 degF Sitting Heart Ra te Post-Dialysis 57 BPM Standing Heart Rate Post-Ruba lysis 57 BPM Temperature Post-Dialysis 97 .3 degF January 02, 2023 In-Center Hemodialysis Treatment 0036-35-68F98:33:00.000Z 4072-60-52G69:03:21.000Z BP Sitting (Pre-Dialysis) 111/41 mmHg BP Sitting [...] degF December 30, 2022 In-Center Hemodialysis Treatment 0171-62-91R23:37:43.000Z 6688-22-02T36:09:43.000Z BP Sitting (Pre-Dialysis) 140/64 mmHg BP Sitting [...] degF December 28, 2022 In-Center Hemodialysis Treatment 8026-33-08E13:42:00.000Z 1220-14-68K97:01:43.000Z BP Sitting (Pre-Dialysis) 156/60 mmHg BP Sitting (Post-Dialysis) 138/57 mmHg Concurrent Access: falseAV Fistula Upper Arm (Left) Arterial BP Standing (Pre-Dialysis) 153/60 mmHg Sitting Heart Rate Post-Dialysis 65 BPM Sitting Heart Rate Pre-Dialysis 63 BPM Temperatu re Post-Dialysis 97 degF Standing Heart Rate Pre-Dialysis 66 BPM Temperature Pre-Dialysis 97.9 degF 2022 In-Center Hemodialysis Treatment 5076-91-29M81:41:00.000Z 0382-80-27T66:16:44.000Z BP Sitting (Pre-Dialysis) 123/61 mmHg BP Sitting (Post-Dialysis) 127/54 mmHg Concurrent Access: falseAV Fistula Upper Arm (Left) Arterial Sitting Heart Rate Pre-Dialysis 67 BPM BP Standing (Post-Dialysis) 124/49 mmHg Temperature Pre-Dialysis 97.5 degF Sitting Heart Ra te Post-Dialysis 66 BPM Standing Heart Rate Post-Ruba lysis 67 BPM Temperature Post-Dialysis 97 .5 degF December 21, 2022 In-Center Hemodialysis Treatment 6418-12-39R80:38:00.000Z 1805-61-23N36:14:27.000Z BP Sitting (Pre-Dialysis) 131/50 mmHg BP Sitting [...] degF December 19, 2022 In-Center Hemodialysis Treatment 1235-63-97H35:39:26.000Z 2723-12-48G27:14:27.000Z BP Sitting (Pre-Dialysis) 153/71 mmHg BP Sitting [...] degF December 15, 2022 In-Center Hemodialysis Treatment 8808-66-10Z31:13:08.000Z 3303-69-37P04:45:08.000Z BP Sitting (Pre-Dialysis) 145/69 mmHg BP Sitting (Post-Dialysis) 119/54 mmHg Concurrent Access: falseAV Fistula Upper Arm (Left) Arterial BP Standing (Pre-Dialysis) 162/76 mmHg Sitting Heart Rate Post-Dialysis 69 BPM Sitting Heart Rate Pre-Dialysis 72 BPM Temperatu re Post-Dialysis 97 degF Standing Heart Rate Pre-Dialysis 78 BPM Temperature Pre-Dialysis 97.3 degF December 13, 2022 In-Center Hemodialysis Treatment 6406-35-43H55:30:08.000Z 8417-19-93X18:02:53.000Z BP Sitting (Pre-Dialysis) 152/67 mmHg BP Sitting (Post-Dialysis) 132/66 mmHg Concurrent Access: falseAV Fistula Upper Arm (Left) Arterial BP Standing (Pre-Dialysis) 158/70 mmHg Sitting Heart Rate Post-Dialysis 63 BPM Sitting Heart Rate Pre-Dialysis 65 BPM Temperatu re Post-Dialysis 97 degF Standing Heart Rate Pre-Dialysis 67 BPM Temperature Pre-Dialysis 97 degF December 11, 2022 In-Center Hemodialysis Treatment 7088-70-20G18:43:02.000Z 2513-49-77K22:16:02.000Z BP Sitting (Pre-Dialysis) 153/61 mmHg BP Sitting (Post-Dialysis) 124/57 mmHg Concurrent Access: falseAV Fistula Upper Arm (Left) Arterial Sitting Heart Rate Pre-Dialysis 66 BPM Sitting H eart Rate Post-Dialysis 69 BPM Temperature Pre-Dialysis 98 degF Temperature Post -Dialysis 97.6 degF December 09, 2022 In-Center Hemodialysis Treatment 1394-12-68I31:51:00.000Z 3913-34-29V33:20:35.000Z BP Sitting (Pre-Dialysis) 143/64 mmHg BP Sitting [...] degF December 07, 2022 In-Center Hemodialysis Treatment 3409-80-78M25:42:00.000Z 1258-17-64H32:17:35.000Z BP Sitting (Pre-Dialysis) 153/64 mmHg BP Sitting [...] degF December 05, 2022 In-Center Hemodialysis Treatment 2549-01-98J91:45:35.000Z 5464-13-04W36:18:35.000Z BP Sitting (Pre-Dialysis) 160/67 mmHg BP Sitting [...] degF December 02, 2022 In-Center Hemodialysis Treatment 1024-51-60I38:38:10.000Z 2362-73-64H43:17:10.000Z BP Sitting (Pre-Dialysis) 127/59 mmHg BP Sitting (Post-Dialysis) 140/58 mmHg Concurrent Access: falseAV Fistula Upper Arm (Left) Arterial Sitting Heart Rate Pre-Dialysis 60 BPM Sitting H eart Rate Post-Dialysis 51 BPM Temperature Pre-Dialysis 98 degF Temperature Post -Dialysis 97.9 degF November 30, 2022 In-Center Hemodialysis Treatment 9666-45-21B31:35:00.000Z 4691-87-93Z39:03:10.000Z BP Sitting (Pre-Dialysis) 164/74 mmHg BP Sitting (Post-Dialysis) 142/59 mmHg Concurrent Access: falseAV Fistula Upper Arm (Left) Arterial Sitting Heart Rate Pre-Dialysis 58 BPM Sitting H eart Rate Post-Dialysis 53 BPM Temperature Pre-Dialysis 97.4 degF Temperature Post -Dialysis 97.8 degF November 28, 2022 In-Center Hemodialysis Treatment 9373-84-95P66:40:10.000Z 9703-98-03C04:16:10.000Z BP Sitting (Pre-Dialysis) 181/76 mmHg BP Sitting [...] degF November 25, 2022 In-Center Hemodialysis Treatment 0308-36-47N63:33:00.000Z 9442-28-76X94:03:24.000Z BP Sitting (Pre-Dialysis) 159/52 mmHg BP Sitting (Post-Dialysis) 146/88 mmHg Concurrent Access: falseAV Fistula Upper Arm (Left) ArterialCentral Venous Catheter (CVC) Chest (Right) Venous BP Standing (Pre-Dialysis) 139/59 mmHg Sitti ng Heart Rate Post-Dialysis 74 BPM Sitting Heart Rate Pre-Dialysis 70 BPM Temperatu re Post-Dialysis 97.8 degF Standing Heart Rate Pre-Dialysis 82 BPM Temperature Pre-Dialysis 97.2 degF November 23, 2022 In-Center Hemodialysis Treatment 1107-24-66B34:44:00.000Z 7331-07-52N55:16:18.000Z BP Sitting (Pre-Dialysis) 135/75 mmHg BP Sitting (Post-Dialysis) 156/67 mmHg Concurrent Access: falseAV Fistula Upper Arm (Left) ArterialCentral Venous Catheter (CVC) Chest (Right) Venous Sitting Heart Rate Pre-Dialysis 61 BPM Sitting H eart Rate Post-Dialysis 72 BPM Temperature Pre-Dialysis 97.8 degF Temperature Post -Dialysis 97.8 degF November 21, 2022 In-Center Hemodialysis Treatment 2135-75-40Z71:41:00.000Z 5255-64-44L43:11:00.000Z BP Sitting (Pre-Dialysis) 182/75 mmHg BP Sitting (Post-Dialysis) 168/66 mmHg Concurrent Access: falseAV Fistula Upper Arm (Left) ArterialCentral Venous Catheter (CVC) Chest (Right) Venous BP Standing (Pre-Dialysis) 185/82 mmHg Sitti ng Heart Rate Post-Dialysis 73 BPM Sitting Heart Rate Pre-Dialysis 70 BPM Temperatu re Post-Dialysis 97.8 degF Standing Heart Rate Pre-Dialysis 75 BPM Temperature Pre-Dialysis 97.8 degF November 18, 2022 In-Center Hemodialysis Treatment 3042-06-17J22:40:00.000Z 6936-92-81Z65:10:15.000Z BP Sitting (Pre-Dialysis) 169/71 mmHg BP Sitting (Post-Dialysis) 120/87 mmHg Concurrent Access: falseAV Fistula Upper Arm (Left) ArterialCentral Venous Catheter (CVC) Chest (Right) Venous BP Standing (Pre-Dialysis) 138/61 mmHg Sitti ng Heart Rate Post-Dialysis 63 BPM Sitting Heart Rate Pre-Dialysis 78 BPM Temperatu re Post-Dialysis 97.3 degF Standing Heart Rate Pre-Dialysis 77 BPM Temperature Pre-Dialysis 97.2 degF November 16, 2022 In-Center Hemodialysis Treatment 0673-81-12P02:41:00.000Z 3784-34-27J71:17:14.000Z BP Sitting (Pre-Dialysis) 161/73 mmHg BP Sitting (Post-Dialysis) 157/82 mmHg Concurrent Access: falseAV Fistula Upper Arm (Left) ArterialCentral Venous Catheter (CVC) Chest (Right) Venous BP Standing (Pre-Dialysis) 165/77 mmHg Sitti ng Heart Rate Post-Dialysis 66 BPM Sitting Heart Rate Pre-Dialysis 73 BPM Temperatu re Post-Dialysis 97.2 degF Standing Heart Rate Pre-Dialysis 74 BPM Temperature Pre-Dialysis 97.6 degF November 14, 2022 In-Center Hemodialysis Treatment 6612-85-38B86:42:14.000Z 8858-26-87J93:13:14.000Z BP Sitting (Pre-Dialysis) 169/71 mmHg BP Sitting [...] degF November 11, 2022 In-Center Hemodialysis Treatment 6215-56-09J96:35:00.000Z 8630-77-46H80:07:40.000Z BP Sitting (Pre-Dialysis) 156/66 mmHg BP Sitting (Post-Dialysis) 154/63 mmHg Concurrent Access: falseAV Fistula Upper Arm (Left) ArterialCentral Venous Catheter (CVC) Chest (Right) Venous Sitting Heart Rate Pre-Dialysis 68 BPM Sitting H eart Rate Post-Dialysis 67 BPM Temperature Pre-Dialysis 97.8 degF Temperature Post -Dialysis 97.8 degF November 09, 2022 In-Center Hemodialysis Treatment 2573-84-20B82:43:00.000Z 2669-06-80P28:23:40.000Z BP Sitting (Pre-Dialysis) 163/63 mmHg BP Sitting [...] degF November 07, 2022 In-Center Hemodialysis Treatment 3507-66-53G36:37:00.000Z 8874-49-45X16:10:40.000Z BP Sitting (Pre-Dialysis) 146/65 mmHg BP Sitting (Post-Dialysis) 169/67 mmHg Concurrent Access: falseAV Fistula Upper Arm (Left) ArterialCentral Venous Catheter (CVC) Chest (Right) Venous BP Standing (Pre-Dialysis) 129/59 mmHg Sitti ng Heart Rate Post-Dialysis 56 BPM Sitting Heart Rate Pre-Dialysis 61 BPM Temperatu re Post-Dialysis 97.5 degF Standing Heart Rate Pre-Dialysis 64 BPM Temperature Pre-Dialysis 97.6 degF November 04, 2022 In-Center Hemodialysis Treatment 7978-57-71S06:32:00.000Z 6145-06-21K32:06:46.000Z BP Sitting (Pre-Dialysis) 156/64 mmHg BP Sitting (Post-Dialysis) 140/58 mmHg Concurrent Access: falseAV Fistula Upper Arm (Left) ArterialCentral Venous Catheter (CVC) Chest (Right) Venous BP Standing (Pre-Dialysis) 142/60 mmHg Sitti ng Heart Rate Post-Dialysis 66 BPM Sitting Heart Rate Pre-Dialysis 66 BPM Temperatu re Post-Dialysis 97.7 degF Standing Heart Rate Pre-Dialysis 69 BPM Temperature Pre-Dialysis 97 degF November 02, 2022 In-Center Hemodialysis Treatment 2191-21-60W24:40:00.000Z 3504-14-58B49:12:46.000Z BP Sitting (Pre-Dialysis) 163/72 mmHg BP Sitting [...] degF October 31, 2022 In-Center Hemodialysis Treatment 5495-54-57S37:39:46.000Z 8217-55-36D48:10:46.000Z BP Sitting (Pre-Dialysis) 169/73 mmHg BP Sitting [...] 30, 2022 Additional Day Of Dialysis Treatment 7474-77-52N18:41:47.000Z 8530-06-06H54:41:47.000Z BP Sitting (Pre-Dialysis) 167/70 mmHg BP Sitting (Post-Dialysis) 155/66 mmHg Concurrent Access: falseCentral Venous Catheter (CVC) Chest (Right) ArterialAV Fistula Upper Arm (Left) Venous Sitting Heart Rate Pre-Dialysis 63 BPM BP Standing (Post-Dialysis) 147/61 mmHg Temperature Pre-Dialysis 97.3 degF Sitting Heart Ra te Post-Dialysis 60 BPM Standing Heart Rate Post-Ruba lysis 60 BPM Temperature Post-Dialysis 97 .7 degF October 28, 2022 In-Center Hemodialysis Treatment 1503-28-90V96:40:00.000Z 2372-39-05G77:15:13.000Z BP Sitting (Pre-Dialysis) 176/75 mmHg BP Sitting (Post-Dialysis) 150/60 mmHg Concurrent Access: falseCentral Venous Catheter (CVC) Chest (Right) ArterialAV Fistula Upper Arm (Left) Venous Sitting Heart Rate Pre-Dialysis 67 BPM Sitting H eart Rate Post-Dialysis 61 BPM Temperature Pre-Dialysis 97.8 degF Temperature Post -Dialysis 97.8 degF October 26, 2022 In-Center Hemodialysis Treatment 7765-46-75D14:39:00.000Z 9357-83-06A61:14:13.000Z BP Sitting (Pre-Dialysis) 147/66 mmHg BP Sitting (Post-Dialysis) 146/66 mmHg Concurrent Access: falseCentral Venous Catheter (CVC) Chest (Right) ArterialAV Fistula Upper Arm (Left) Venous Sitting Heart Rate Pre-Dialysis 73 BPM Sitting H eart Rate Post-Dialysis 63 BPM Temperature Pre-Dialysis 97.8 degF Temperature Post -Dialysis 97 degF October 24, 2022 In-Center Hemodialysis Treatment 3116-64-64J26:42:00.000Z 8072-50-25F76:16:13.000Z BP Sitting (Pre-Dialysis) 170/72 mmHg BP Sitting [...] degF October 21, 2022 In-Center Hemodialysis Treatment 6256-17-60L86:42:18.000Z 3582-28-52Q50:12:18.000Z BP Sitting (Pre-Dialysis) 161/64 mmHg BP Sitting [...] degF October 19, 2022 In-Center Hemodialysis Treatment 7598-08-29E09:45:00.000Z 2488-19-02B33:46:18.000Z BP Sitting (Pre-Dialysis) 184/81 mmHg BP Sitting [...] degF October 17, 2022 In-Center Hemodialysis Treatment 6908-27-11Z87:45:00.000Z 0220-78-22I76:16:51.000Z BP Sitting (Pre-Dialysis) 178/83 mmHg BP Sitting (Post-Dialysis) 141/40 mmHg Concurrent Access: falseCentral Venous Catheter (CVC) Chest (Right) ArterialAV Fistula Upper Arm (Left) Venous Sitting Heart Rate Pre-Dialysis 66 BPM Sitting H eart Rate Post-Dialysis 63 BPM Temperature Pre-Dialysis 97 degF Temperature Post -Dialysis 97 degF October 14, 2022 In-Center Hemodialysis Treatment 5970-13-49K56:45:00.000Z 3994-86-36T03:19:52.000Z BP Sitting (Pre-Dialysis) 142/68 mmHg BP Sitting (Post-Dialysis) 150/70 mmHg Concurrent Access: falseCentral Venous Catheter (CVC) Chest (Right) ArterialAV Fistula Upper Arm (Left) Venous Sitting Heart Rate Pre-Dialysis 66 BPM Sitting H eart Rate Post-Dialysis 61 BPM Temperature Pre-Dialysis 97.6 degF Temperature Post -Dialysis 97.6 degF October 12, 2022 In-Center Hemodialysis Treatment 6989-66-85O47:42:00.000Z 5977-88-13Y58:15:52.000Z BP Sitting (Pre-Dialysis) 143/65 mmHg BP Sitting [...] degF October 10, 2022 In-Center Hemodialysis Treatment 4908-42-16Y67:38:00.000Z 8622-02-17L19:13:52.000Z BP Sitting (Pre-Dialysis) 152/71 mmHg BP Sitting [...] degF October 07, 2022 In-Center Hemodialysis Treatment 6416-54-69I10:11:15.000Z 3031-79-88A22:27:15.000Z BP Sitting (Pre-Dialysis) 190/82 mmHg BP Sitting (Post-Dialysis) 172/63 mmHg Concurrent Access: falseCentral Venous Catheter (CVC) Chest (Right) ArterialAV Fistula Upper Arm (Left) Venous Sitting Heart Rate Pre-Dialysis 70 BPM Sitting H eart Rate Post-Dialysis 60 BPM Temperature Pre-Dialysis 97.3 degF Temperature Post -Dialysis 97.4 degF October 05, 2022 In-Center Hemodialysis Treatment 4659-17-13N64:45:00.000Z 7866-74-77L52:14:15.000Z BP Sitting (Pre-Dialysis) 180/67 mmHg BP Sitting (Post-Dialysis) 170/72 mmHg Concurrent Access: falseCentral Venous Catheter (CVC) Chest (Right) ArterialAV Fistula Upper Arm (Left) Venous Sitting Heart Rate Pre-Dialysis 62 BPM Sitting H eart Rate Post-Dialysis 60 BPM Temperature Pre-Dialysis 98.1 degF Temperature Post -Dialysis 97.8 degF October 03, 2022 In-Center Hemodialysis Treatment 8013-74-81X29:45:00.000Z 3082-71-23T95:23:15.000Z BP Sitting (Pre-Dialysis) 150/61 mmHg BP Sitting [...] degF September 30, 2022 In-Center Hemodialysis Treatment 3687-03-79B92:38:14.000Z 0558-39-88F32:11:14.000Z BP Sitting (Pre-Dialysis) 195/69 mmHg BP Sitting (Post-Dialysis) 179/66 mmHg Concurrent Access: falseCentral Venous Catheter (CVC) Chest (Right) ArterialAV Fistula Upper Arm (Left) Venous BP Standing (Pre-Dialysis) 182/68 mmHg Sitti ng Heart Rate Post-Dialysis 55 BPM Sitting Heart Rate Pre-Dialysis 60 BPM Temperatu re Post-Dialysis 97.8 degF Standing Heart Rate Pre-Dialysis 58 BPM Temperature Pre-Dialysis 97.8 degF September 28, 2022 In-Center Hemodialysis Treatment 8221-51-55K92:43:00.000Z 1391-18-00P40:45:15.000Z BP Sitting (Pre-Dialysis) 146/67 mmHg BP Sitting [...] degF September 26, 2022 In-Center Hemodialysis Treatment 7404-39-53S52:40:14.000Z 0121-19-52R65:11:15.000Z BP Sitting (Pre-Dialysis) 131/63 mmHg BP Sitting [...] degF September 23, 2022 In-Center Hemodialysis Treatment 3334-25-08J05:45:00.000Z 7441-03-89G57:20:15.000Z BP Sitting (Pre-Dialysis) 157/67 mmHg BP Sitting (Post-Dialysis) 146/59 mmHg Concurrent Access: falseCentral Venous Catheter (CVC) Chest (Right) ArterialAV Fistula Upper Arm (Left) Venous Sitting Heart Rate Pre-Dialysis 70 BPM BP Standing (Post-Dialysis) 143/75 mmHg Temperature Pre-Dialysis 97.8 degF Sitting Heart Ra te Post-Dialysis 60 BPM Standing Heart Rate Post-Ruba lysis 61 BPM Temperature Post-Dialysis 97 .8 degF September 21, 2022 In-Center Hemodialysis Treatment 1916-76-06U81:44:15.000Z 3289-53-56H50:15:15.000Z BP Sitting (Pre-Dialysis) 155/61 mmHg BP Sitting (Post-Dialysis) 155/57 mmHg Concurrent Access: falseCentral Venous Catheter (CVC) Chest (Right) ArterialAV Fistula Upper Arm (Left) Venous BP Standing (Pre-Dialysis) 151/58 mmHg Sitti ng Heart Rate Post-Dialysis 59 BPM Sitting Heart Rate Pre-Dialysis 69 BPM Temperatu re Post-Dialysis 97.9 degF Standing Heart Rate Pre-Dialysis 69 BPM Temperature Pre-Dialysis 97.9 degF September 19, 2022 In-Center Hemodialysis Treatment 9240-93-20S59:47:00.000Z 6828-27-49V81:25:15.000Z BP Sitting (Pre-Dialysis) 141/57 mmHg BP Sitting (Post-Dialysis) 147/56 mmHg Concurrent Access: falseCentral Venous Catheter (CVC) Chest (Right) ArterialAV Fistula Upper Arm (Left) Venous BP Standing (Pre-Dialysis) 137/79 mmHg Sitti ng Heart Rate Post-Dialysis 59 BPM Sitting Heart Rate Pre-Dialysis 65 BPM Temperatu re Post-Dialysis 97.9 degF Standing Heart Rate Pre-Dialysis 73 BPM Temperature Pre-Dialysis 97.9 degF September 16, 2022 In-Center Hemodialysis Treatment 8077-99-25F11:43:00.000Z 4482-54-16G44:15:07.000Z BP Sitting (Pre-Dialysis) 163/67 mmHg BP Sitting (Post-Dialysis) 156/68 mmHg Concurrent Access: falseCentral Venous Catheter (CVC) Chest (Right) ArterialAV Fistula Upper Arm (Left) Venous Sitting Heart Rate Pre-Dialysis 64 BPM Sitting H eart Rate Post-Dialysis 80 BPM Temperature Pre-Dialysis 97.8 degF Temperature Post -Dialysis 98 degF September 14, 2022 In-Center Hemodialysis Treatment 6171-14-61Z88:42:00.000Z 5612-44-95Q82:13:08.000Z BP Sitting (Pre-Dialysis) 154/68 mmHg BP Sitting [...] degF September 12, 2022 In-Center Hemodialysis Treatment 5639-48-58Y22:40:00.000Z 0365-91-46X94:14:08.000Z BP Sitting (Pre-Dialysis) 111/77 mmHg BP Sitting (Post-Dialysis) 158/67 mmHg Concurrent Access: falseCentral Venous Catheter (CVC) Chest (Right) ArterialAV Fistula Upper Arm (Left) Venous Sitting Heart Rate Pre-Dialysis 59 BPM Sitting H eart Rate Post-Dialysis 58 BPM Temperature Pre-Dialysis 97.9 degF Temperature Post -Dialysis 97.9 degF September 09, 2022 In-Center Hemodialysis Treatment 5857-50-90H69:42:00.000Z 6159-94-22F34:15:08.000Z BP Sitting (Pre-Dialysis) 172/74 mmHg BP Sitting (Post-Dialysis) 107/61 mmHg Concurrent Access: falseCentral Venous Catheter (CVC) Chest (Right) ArterialAV Fistula Upper Arm (Left) Venous Sitting Heart Rate Pre-Dialysis 77 BPM Sitting H eart Rate Post-Dialysis 75 BPM Temperature Pre-Dialysis 97.6 degF Temperature Post -Dialysis 97.8 degF September 07, 2022 In-Center Hemodialysis Treatment 2534-27-44J15:45:00.000Z 7253-27-66N61:19:08.000Z BP Sitting (Pre-Dialysis) 164/70 mmHg BP Sitting (Post-Dialysis) 166/61 mmHg Concurrent Access: falseCentral Venous Catheter (CVC) Chest (Right) ArterialAV Fistula Upper Arm (Left) Venous Sitting Heart Rate Pre-Dialysis 67 BPM Sitting H eart Rate Post-Dialysis 60 BPM Temperature Pre-Dialysis 97.9 degF Temperature Post -Dialysis 97.8 degF September 05, 2022 In-Center Hemodialysis Treatment [id number]:43:00.000Z 8852-29-27H25:13:08.000Z BP Sitting (Pre-Dialysis) 193/87 mmHg BP Sitting (Post-Dialysis) 166/73 mmHg Concurrent Access: falseCentral Venous Catheter (CVC) Chest (Right) ArterialAV Fistula Upper Arm (Left) Venous Sitting Heart Rate Pre-Dialysis 73 BPM Sitting H eart Rate Post-Dialysis 67 BPM Temperature Pre-Dialysis 97.7 degF Temperature Post -Dialysis 97.9 degF September 02, 2022 In-Center Hemodialysis Treatment [id number]:28:00.000Z 5198-23-13M63:00:07.000Z BP Sitting (Pre-Dialysis) 176/73 mmHg BP Sitting (Post-Dialysis) 164/71 mmHg Concurrent Access: falseCentral Venous Catheter (CVC) Chest (Right) ArterialAV Fistula Upper Arm (Left) Venous Sitting Heart Rate Pre-Dialysis 81 BPM BP Standing (Post-Dialysis) 153/79 mmHg Temperature Pre-Dialysis 97.9 degF Sitting Heart Ra te Post-Dialysis 64 BPM Standing Heart Rate Post-Ruba lysis 62 BPM Temperature Post-Dialysis 98 degF September 01, 2022 In-Center Hemodialysis Treatment [id number]:35:00.000Z [id number]:08:16.000Z BP Sitting (Pre-Dialysis) 180/63 mmHg BP Sitting (Post-Dialysis) 153/90 mmHg Concurrent Access: falseCentral Venous Catheter (CVC) Chest (Right) ArterialAV Fistula Upper Arm (Left) Venous Sitting Heart Rate Pre-Dialysis 76 BPM Sitting H eart Rate Post-Dialysis 70 BPM Temperature Pre-Dialysis 97.6 degF Temperature Post -Dialysis 98.1 degF August 29, 2022 In-Center Hemodialysis Treatment [id number]:33:00.000Z 5130-34-13Q87:15:18.000Z BP Sitting (Pre-Dialysis) 152/55 mmHg BP Sitting (Post-Dialysis) 141/47 mmHg Concurrent Access: falseCentral Venous Catheter (CVC) Chest (Right) ArterialAV Fistula Upper Arm (Left) Venous Sitting Heart Rate Pre-Dialysis 58 BPM Sitting H eart Rate Post-Dialysis 55 BPM Temperature Pre-Dialysis 97.4 degF Temperature Post -Dialysis 97.9 degF August 26, 2022 In-Center Hemodialysis Treatment [id number]:41:00.000Z 0003-72-32J10:12:23.000Z BP Sitting (Pre-Dialysis) 155/62 mmHg BP Sitting [...] degF August 24, 2022 In-Center Hemodialysis Treatment 8560-40-16J45:39:00.000Z 9137-92-85O79:12:23.000Z BP Sitting (Pre-Dialysis) 139/71 mmHg BP Sitting [...] degF August 22, 2022 In-Center Hemodialysis Treatment 5024-97-61U11:25:00.000Z 0531-79-09M19:02:16.000Z BP Sitting (Pre-Dialysis) 125/34 mmHg BP Sitting (Post-Dialysis) 150/83 mmHg Concurrent Access: falseCentral Venous Catheter (CVC) Chest (Right) ArterialAV Fistula Upper Arm (Left) Venous Sitting Heart Rate Pre-Dialysis 52 BPM Sitting H eart Rate Post-Dialysis 57 BPM Temperature Pre-Dialysis 97.9 degF Temperature Post -Dialysis 97.7 degF August 19, 2022 In-Center Hemodialysis Treatment 1304-43-97W45:56:00.000Z 2719-74-86A87:31:09.000Z BP Sitting (Pre-Dialysis) 146/67 mmHg BP Sitting (Post-Dialysis) 159/64 mmHg Concurrent Access: falseCentral Venous Catheter (CVC) Chest (Right) ArterialAV Fistula Upper Arm (Left) Venous Sitting Heart Rate Pre-Dialysis 66 BPM Sitting H eart Rate Post-Dialysis 57 BPM Temperature Pre-Dialysis 97.6 degF August 17, 2022 In-Center Hemodialysis Treatment 9575-59-46F30:05:00.000Z 1965-38-20I00:39:01.000Z BP Sitting (Pre-Dialysis) 162/73 mmHg BP Sitting (Post-Dialysis) 155/59 mmHg Concurrent Access: falseCentral Venous Catheter (CVC) Chest (Right) ArterialAV Fistula Upper Arm (Left) Venous Sitting Heart Rate Pre-Dialysis 64 BPM Sitting H eart Rate Post-Dialysis 61 BPM Temperature Pre-Dialysis 97.8 degF Temperature Post -Dialysis 97.8 degF August 15, 2022 In-Center Hemodialysis Treatment [id number]:36:00.000Z 2005-76-49C35:06:08.000Z BP Sitting (Pre-Dialysis) 156/52 mmHg BP Sitting (Post-Dialysis) 142/56 mmHg Concurrent Access: falseCentral Venous Catheter (CVC) Chest (Right) ArterialAV Fistula Upper Arm (Left) Venous Sitting Heart Rate Pre-Dialysis 71 BPM Sitting H eart Rate Post-Dialysis 61 BPM Temperature Pre-Dialysis 98.1 degF Temperature Post -Dialysis 97.6 degF August 12, 2022 In-Center Hemodialysis Treatment [id number]:44:00.000Z 8671-13-95G07:14:08.000Z BP Sitting (Pre-Dialysis) 160/56 mmHg BP Sitting (Post-Dialysis) 151/52 mmHg Concurrent Access: falseCentral Venous Catheter (CVC) Chest (Right) ArterialAV Fistula Upper Arm (Left) Venous Sitting Heart Rate Pre-Dialysis 68 BPM Sitting H eart Rate Post-Dialysis 65 BPM Temperature Pre-Dialysis 98 degF Temperature Post -Dialysis 97.6 degF August 10, 2022 In-Center Hemodialysis Treatment 7210-24-10K31:56:00.000Z [id number]:28:50.000Z BP Sitting (Pre-Dialysis) 175/69 mmHg BP Sitting (Post-Dialysis) 160/59 mmHg Concurrent Access: falseCentral Venous Catheter (CVC) Chest (Right) ArterialAV Fistula Upper Arm (Left) Venous Sitting Heart Rate Pre-Dialysis 55 BPM Sitting H eart Rate Post-Dialysis 57 BPM Temperature Pre-Dialysis 97.6 degF Temperature Post -Dialysis 98.1 degF August 08, 2022 In-Center Hemodialysis Treatment 2891-33-22M03:58:00.000Z 9413-57-17N71:30:39.000Z BP Sitting (Pre-Dialysis) 162/60 mmHg BP Sitting (Post-Dialysis) 63/62 mmHg Concurrent Access: falseCentral Venous Catheter (CVC) Chest (Right) ArterialAV Fistula Upper Arm (Left) Venous Sitting Heart Rate Pre-Dialysis 68 BPM Sitting H eart Rate Post-Dialysis 59 BPM Temperature Pre-Dialysis 97.4 degF August 05, 2022 In-Center Hemodialysis Treatment [id number]:02:00.000Z 3322-87-66R88:33:31.000Z BP Sitting (Pre-Dialysis) 199/77 mmHg BP Sitting (Post-Dialysis) 169/59 mmHg Concurrent Access: falseCentral Venous Catheter (CVC) Chest (Right) Arterial Sitting Heart Rate Pre-Dialysis 71 BPM Sitting H eart Rate Post-Dialysis 66 BPM Temperature Pre-Dialysis 97.7 degF Temperature Post -Dialysis 98.5 degF August 03, 2022 In-Center Hemodialysis Treatment 5061-82-22S46:48:32.000Z 7473-64-02W62:18:32.000Z BP Sitting (Pre-Dialysis) 203/73 mmHg BP Sitting (Post-Dialysis) 184/75 mmHg Concurrent Access: falseCentral Venous Catheter (CVC) Chest (Right) Arterial Sitting Heart Rate Pre-Dialysis 75 BPM Sitting H eart Rate Post-Dialysis 62 BPM Temperature Pre-Dialysis 97.8 degF Temperature Post -Dialysis 97.4 degF August 01, 2022 In-Center Hemodialysis Treatment 4359-32-50F92:09:00.000Z 7845-56-93T68:45:33.000Z BP Sitting (Pre-Dialysis) 200/85 mmHg BP Sitting (Post-Dialysis) 198/88 mmHg Concurrent Access: falseCentral Venous Catheter (CVC) Chest (Right) Arterial Sitting Heart Rate Pre-Dialysis 72 BPM Sitting H eart Rate Post-Dialysis 61 BPM Temperature Pre-Dialysis 97.6 degF Temperature Post -Dialysis 97.8 degF July 29, 2022 In-Center Hemodialysis Treatment 7039-26-08Y83:49:00.000Z 2839-16-38O19:20:43.000Z BP Sitting (Pre-Dialysis) 191/85 mmHg BP Sitting (Post-Dialysis) 162/67 mmHg Concurrent Access: falseCentral Venous Catheter (CVC) Chest (Right) Arterial Sitting Heart Rate Pre-Dialysis 65 BPM Sitting H eart Rate Post-Dialysis 60 BPM Temperature Pre-Dialysis 97.6 degF Temperature Post -Dialysis 97.5 degF July 27, 2022 In-Center Hemodialysis Treatment 6737-35-69C31:58:00.000Z 4940-95-33B50:27:43.000Z BP Sitting (Pre-Dialysis) 181/85 mmHg BP Sitting (Post-Dialysis) 147/85 mmHg Concurrent Access: falseCentral Venous Catheter (CVC) Chest (Right) Arterial Sitting Heart Rate Pre-Dialysis 73 BPM Sitting H eart Rate Post-Dialysis 70 BPM Temperature Pre-Dialysis 97.8 degF Temperature Post -Dialysis 97 degF July 25, 2022 In-Center Hemodialysis Treatment [id number]:16:00.000Z 9686-90-87X78:44:43.000Z BP Sitting (Pre-Dialysis) 204/94 mmHg BP Sitting (Post-Dialysis) 188/83 mmHg Concurrent Access: falseCentral Venous Catheter (CVC) Chest (Right) Arterial Sitting Heart Rate Pre-Dialysis 72 BPM Sitting H eart Rate Post-Dialysis 66 BPM Temperature Pre-Dialysis 97.6 degF Temperature Post -Dialysis 97.6 degF July 22, 2022 In-Center Hemodialysis Treatment 5211-76-54P51:05:00.000Z 4725-29-77G66:39:27.000Z BP Sitting (Pre-Dialysis) 169/75 mmHg BP Sitting (Post-Dialysis) 180/72 mmHg Concurrent Access: falseCentral Venous Catheter (CVC) Chest (Right) Arterial Sitting Heart Rate Pre-Dialysis 64 BPM Sitting H eart Rate Post-Dialysis 57 BPM Temperature Pre-Dialysis 97.8 degF Temperature Post -Dialysis 97.9 degF July 20, 2022 In-Center Hemodialysis Treatment 8914-27-66A52:19:00.000Z 6029-86-93M70:57:00.000Z BP Sitting (Pre-Dialysis) 180/83 mmHg BP Sitting (Post-Dialysis) 161/72 mmHg Concurrent Access: falseCentral Venous Catheter (CVC) Chest (Right) Arterial Sitting Heart Rate Pre-Dialysis 67 BPM Sitting H eart Rate Post-Dialysis 59 BPM Temperature Pre-Dialysis 97.8 degF Temperature Post -Dialysis 97.4 degF July 18, 2022 In-Center Hemodialysis Treatment 4984-55-72H12:41:00.000Z 7335-30-27P91:32:32.000Z BP Sitting (Pre-Dialysis) 129/45 mmHg BP Sitting (Post-Dialysis) 144/57 mmHg Concurrent Access: falseCentral Venous Catheter (CVC) Chest (Right) Arterial Sitting Heart Rate Pre-Dialysis 71 BPM Sitting H eart Rate Post-Dialysis 60 BPM Temperature Pre-Dialysis 97.2 degF Temperature Post -Dialysis 97.6 degF July 15, 2022 In-Center Hemodialysis Treatment [id number]:54:00.000Z 2424-10-94D34:26:31.000Z BP Sitting (Pre-Dialysis) 177/75 mmHg BP Sitting (Post-Dialysis) 147/64 mmHg Concurrent Access: falseCentral Venous Catheter (CVC) Chest (Right) Arterial Sitting Heart Rate Pre-Dialysis 74 BPM Sitting H eart Rate Post-Dialysis 59 BPM Temperature Pre-Dialysis 97.3 degF Temperature Post -Dialysis 97.6 degF July 13, 2022 In-Center Hemodialysis Treatment [id number]:57:00.000Z 0877-52-36Z53:30:31.000Z BP Sitting (Pre-Dialysis) 145/59 mmHg BP Sitting (Post-Dialysis) 154/54 mmHg Concurrent Access: falseCentral Venous Catheter (CVC) Chest (Right) Arterial Sitting Heart Rate Pre-Dialysis 73 BPM Sitting H eart Rate Post-Dialysis 66 BPM Temperature Pre-Dialysis 97.3 degF Temperature Post -Dialysis 97.6 degF July 11, 2022 In-Center Hemodialysis Treatment [id number]:48:00.000Z 7707-99-09J10:12:21.000Z BP Sitting (Pre-Dialysis) 175/65 mmHg BP Sitting (Post-Dialysis) 177/76 mmHg Concurrent Access: falseCentral Venous Catheter (CVC) Chest (Right) Arterial Sitting Heart Rate Pre-Dialysis 64 BPM Sitting H eart Rate Post-Dialysis 66 BPM Temperature Pre-Dialysis 97.5 degF Temperature Post -Dialysis 97.6 degF July 08, 2022 In-Center Hemodialysis Treatment 0922-51-71V90:44:00.000Z 0906-44-79L37:15:30.000Z BP Sitting (Pre-Dialysis) 179/70 mmHg BP Sitting (Post-Dialysis) 175/69 mmHg Concurrent Access: falseCentral Venous Catheter (CVC) Chest (Right) Arterial Sitting Heart Rate Pre-Dialysis 60 BPM Sitting H eart Rate Post-Dialysis 62 BPM Temperature Pre-Dialysis 97.6 degF Temperature Post -Dialysis 97.7 degF July 06, 2022 In-Center Hemodialysis Treatment 4498-11-61A30:45:00.000Z 9534-88-68P93:17:52.000Z BP Sitting (Pre-Dialysis) 199/86 mmHg BP Sitting (Post-Dialysis) 174/74 mmHg Concurrent Access: falseCentral Venous Catheter (CVC) Chest (Right) Arterial Sitting Heart Rate Pre-Dialysis 77 BPM Sitting H eart Rate Post-Dialysis 78 BPM Temperature Pre-Dialysis 97 degF Temperature Post -Dialysis 97 degF July 04, 2022 In-Center Hemodialysis Treatment [id number]:51:00.000Z 5015-21-30G87:26:30.000Z BP Sitting (Pre-Dialysis) 196/78 mmHg BP Sitting (Post-Dialysis) 180/77 mmHg Concurrent Access: falseCentral Venous Catheter (CVC) Chest (Right) Arterial Sitting Heart Rate Pre-Dialysis 76 BPM Sitting H eart Rate Post-Dialysis 57 BPM Temperature Pre-Dialysis 97.9 degF Temperature Post -Dialysis 97.6 degF July 01, 2022 In-Center Hemodialysis Treatment [id number]:45:00.000Z 2527-68-53W74:16:46.000Z BP Sitting (Pre-Dialysis) 181/79 mmHg BP Sitting (Post-Dialysis) 167/72 mmHg Concurrent Access: falseCentral Venous Catheter (CVC) Chest (Right) Arterial Sitting Heart Rate Pre-Dialysis 63 BPM Sitting H eart Rate Post-Dialysis 60 BPM Temperature Pre-Dialysis 97.4 degF Temperature Post -Dialysis 97.6 degF June 29, 2022 In-Center Hemodialysis Treatment [id number]:54:00.000Z 9610-41-10N27:31:13.000Z BP Sitting (Pre-Dialysis) 189/77 mmHg BP Sitting (Post-Dialysis) 160/50 mmHg Concurrent Access: falseCentral Venous Catheter (CVC) Chest (Right) Arterial Sitting Heart Rate Pre-Dialysis 85 BPM Sitting H eart Rate Post-Dialysis 63 BPM Temperature Pre-Dialysis 97.5 degF Temperature Post -Dialysis 97.7 degF June 27, 2022 In-Center Hemodialysis Treatment [id number]:53:00.000Z 7061-58-25V67:23:11.000Z BP Sitting (Pre-Dialysis) 164/68 mmHg BP Sitting (Post-Dialysis) 180/81 mmHg Concurrent Access: falseCentral Venous Catheter (CVC) Chest (Right) Arterial Sitting Heart Rate Pre-Dialysis 78 BPM Sitting H eart Rate Post-Dialysis 76 BPM Temperature Pre-Dialysis 97.6 degF Temperature Post -Dialysis 97.6 degF June 24, 2022 In-Center Hemodialysis Treatment 7413-27-92S18:06:00.000Z 6360-73-72Q22:40:43.000Z BP Sitting (Pre-Dialysis) 155/55 mmHg BP Sitting (Post-Dialysis) 176/69 mmHg Concurrent Access: falseCentral Venous Catheter (CVC) Chest (Right) Arterial Sitting Heart Rate Pre-Dialysis 66 BPM Sitting H eart Rate Post-Dialysis 67 BPM Temperature Pre-Dialysis 97.6 degF Temperature Post -Dialysis 97.5 degF June 22, 2022 In-Center Hemodialysis Treatment 7883-04-04F33:48:00.000Z 0745-42-11A17:17:43.000Z BP Sitting (Pre-Dialysis) 181/77 mmHg BP Sitting (Post-Dialysis) 175/74 mmHg Concurrent Access: falseCentral Venous Catheter (CVC) Chest (Right) Arterial Sitting Heart Rate Pre-Dialysis 77 BPM Sitting H eart Rate Post-Dialysis 63 BPM Temperature Pre-Dialysis 97.3 degF Temperature Post -Dialysis 97.4 degF June 20, 2022 In-Center Hemodialysis Treatment [id number]:10:00.000Z 5979-56-12S40:45:01.000Z BP Sitting (Pre-Dialysis) 166/46 mmHg BP Sitting (Post-Dialysis) 171/64 mmHg Concurrent Access: falseCentral Venous Catheter (CVC) Chest (Right) Arterial Sitting Heart Rate Pre-Dialysis 66 BPM Sitting H eart Rate Post-Dialysis 60 BPM Temperature Pre-Dialysis 97.3 degF Temperature Post -Dialysis 97.6 degF June 17, 2022 In-Center Hemodialysis Treatment [id number]:49:00.000Z 6851-83-57D70:23:29.000Z BP Sitting (Pre-Dialysis) 196/85 mmHg BP Sitting (Post-Dialysis) 182/69 mmHg Concurrent Access: falseCentral Venous Catheter (CVC) Chest (Right) Arterial BP Standing (Pre-Dialysis) 193/83 mmHg Sitti ng Heart Rate Post-Dialysis 69 BPM Sitting Heart Rate Pre-Dialysis 64 BPM Temperatu re Post-Dialysis 97.8 degF Standing Heart Rate Pre-Dialysis 69 BPM Temperature Pre-Dialysis 97.4 degF June 15, 2022 In-Center Hemodialysis Treatment 2501-47-31A94:53:28.000Z 5479-88-92C12:22:29.000Z BP Sitting (Pre-Dialysis) 158/49 mmHg BP Sitting (Post-Dialysis) 178/73 mmHg Concurrent Access: falseCentral Venous Catheter (CVC) Chest (Right) Arterial Sitting Heart Rate Pre-Dialysis 70 BPM Sitting H eart Rate Post-Dialysis 65 BPM Temperature Pre-Dialysis 97.3 degF Temperature Post -Dialysis 97.8 degF June 13, 2022 In-Center Hemodialysis Treatment 5560-23-87V12:01:00.000Z 9217-71-80A45:38:29.000Z BP Sitting (Pre-Dialysis) 174/63 mmHg BP Sitting (Post-Dialysis) 169/68 mmHg Concurrent Access: falseCentral Venous Catheter (CVC) Chest (Right) Arterial Sitting Heart Rate Pre-Dialysis 62 BPM Sitting H eart Rate Post-Dialysis 56 BPM Temperature Pre-Dialysis 97.5 degF Temperature Post -Dialysis 97.7 degF June 10, 2022 In-Center Hemodialysis Treatment 4947-55-83K23:17:00.000Z 6906-61-12O69:49:00.000Z BP Sitting (Pre-Dialysis) 165/67 mmHg BP Sitting (Post-Dialysis) 163/60 mmHg Concurrent Access: falseCentral Venous Catheter (CVC) Chest (Right) Arterial Sitting Heart Rate Pre-Dialysis 68 BPM Sitting H eart Rate Post-Dialysis 63 BPM Temperature Pre-Dialysis 97.5 degF Temperature Post -Dialysis 97.9 degF June 08, 2022 In-Center Hemodialysis Treatment 1126-60-69K11:10:00.000Z 6856-13-22C00:42:55.000Z BP Sitting (Pre-Dialysis) 171/67 mmHg BP Sitting (Post-Dialysis) 178/69 mmHg Concurrent Access: falseCentral Venous Catheter (CVC) Chest (Right) Arterial Sitting Heart Rate Pre-Dialysis 64 BPM Sitting H eart Rate Post-Dialysis 66 BPM Temperature Pre-Dialysis 97.5 degF Temperature Post -Dialysis 97 degF June 06, 2022 In-Center Hemodialysis Treatment 1983-55-00J97:16:00.000Z 8197-59-51Q73:49:28.000Z BP Sitting (Pre-Dialysis) 185/74 mmHg BP Sitting (Post-Dialysis) 133/61 mmHg Concurrent Access: falseCentral Venous Catheter (CVC) Chest (Right) Arterial Sitting Heart Rate Pre-Dialysis 69 BPM Sitting H eart Rate Post-Dialysis 61 BPM Temperature Pre-Dialysis 97.3 degF Temperature Post -Dialysis 97.5 degF June 03, 2022 In-Center Hemodialysis Treatment [id number]:08:00.000Z 3761-83-88R67:30:19.000Z BP Sitting (Pre-Dialysis) 171/92 mmHg BP Sitting (Post-Dialysis) 152/67 mmHg Concurrent Access: falseCentral Venous Catheter (CVC) Chest (Right) Arterial Sitting Heart Rate Pre-Dialysis 116 BPM Sitting H eart Rate Post-Dialysis 65 BPM Temperature Pre-Dialysis 97 degF Temperature Post -Dialysis 97.8 degF June 01, 2022 In-Center Hemodialysis Treatment [id number]:27:00.000Z [id number]:53:16.000Z BP Sitting (Pre-Dialysis) 171/70 mmHg BP Sitting (Post-Dialysis) 137/57 mmHg Concurrent Access: falseCentral Venous Catheter (CVC) Chest (Right) Arterial Sitting Heart Rate Pre-Dialysis 70 BPM Sitting H eart Rate Post-Dialysis 71 BPM Temperature Pre-Dialysis 97.5 degF Temperature Post -Dialysis 97.8 degF May 30, 2022 In-Center Hemodialysis Treatment [id number]:12:19.000Z [id number]:44:19.000Z BP Sitting (Pre-Dialysis) 192/75 mmHg BP Sitting (Post-Dialysis) 117/82 mmHg Concurrent Access: falseCentral Venous Catheter (CVC) Chest (Right) Arterial Sitting Heart Rate Pre-Dialysis 63 BPM Sitting H eart Rate Post-Dialysis 67 BPM Temperature Pre-Dialysis 97.9 degF Temperature Post -Dialysis 97 degF DIALYSIS ORDER Dialysis Procedure Orders Type of Dialysis Procedure Order Order Date/Time Observations In-Center Hemodialysis Treatment [facility] 2024 Target Weight 88.5 kg Dialysate Flow Rate 500 mL/min Blood Flow Rate 400 mL/min Treatment Time 210 min(total) Max UF Rate 13 mL/kg/hr dialysate_temp 36.5 C BiCarb Dialysate BiCarbonate 37 meq/L Access Concurrent No Arterial Access AV Fistula (Upper Ar m (Left)) Venous Access AV Fistula (Upper Ar m (Left)) Arterial Needle Display NIPRO, TULIP, 15 G x 1, SHARP , TWIN Venous Needle NIPRO, TULIP, 15G x 1, SHARP , TWIN Dialyzer Nipro Elisio 17H 145 5 [email or web address] Dialysate Bath Potassium Potassium 2 mEq /L Dialysate Bath Calcium Calcium 2.5 mEq/L In-Center Hemodialysis TreatmentMarch 26, 2025 Observation Value Target Weight 88.5 kg Dialysate Flow Rate 500 mL/min Blood Flow Rate 400 mL/min Treatment Time 210 min(total) Max UF Rate 13 mL/kg/hr dialysate_temp 36.5 C BiCarb Dialysate BiCarbonate 37 mEq/L Access Concurrent No Arterial Access AV Fistula (Upper Ar m (Left)) Venous Access AV Fistula (Upper Ar m (Left)) Arterial Needle Display NIPRO, TULIP, 15 G x 1, SHARP , TWIN Venous Needle NIPRO, TULIP, 15G x 1, SHARP , TWIN Dialyzer [employer] Optiflux F 160NRe 1025 [email or web address] Dialysate Bath Potassium Potassium 2 mEq /L Dialysate Bath Calcium Calcium 2.5 mEq/L Results Adequacy Description Draw Date Result/Unit Status Ref Range Result Comments Residual kt/v 2025-04-18 15:13:17 F Unable to calculate: Post BUN lab result is unknown eKt/V 2025-04-18 15:13:17 1.35 F nPCR 2025-04-18 15:13:17 0.88 G/KG/D F WEIGHT - PRE DAY 1 2025-04-18 15:13:17 94.3 kg F PATIENT AGE 2025-04-18 15:13:17 74 Years F Dialyzer STEPHENIE 2025-04-18 15:13:17 1455 Calc F LENGTH OF DIALYSIS 2025-04-18 15:13:17 210 min F BSA BEVERLY 2025-04-18 15:13:17 1.94 sq m F stdKT/V Total 2025-04-18 15:13:17 N/A F Std Renal KT/V 2025-04-18 15:13:17 N/A F TBW (Santos) 2025-04-18 15:13:17 37.89 Liters F VM (KT/V MEAN VOL) 2025-04-18 15:13:17 40 F stdKt/V (DIAL) 2025-04-18 15:13:17 N/A F spKt/V 2025-04-18 15:13:17 1.59 F CURRENT KRU 2025-04-18 15:13:17 F Unable to calculate: Post BUN lab result is unknown VT (KT/V TX VOL) 2025-04-18 15:13:17 37.1 L F AMPUTATE FACTOR 2025-04-18 15:13:17 0 F DIALYZER FLOW-QD 2025-04-18 15:13:17 500 mL/min F WEIGHT - POST DAY 1 2025-04-18 15:13:17 91.7 kg F TOTAL HOURS/WEEK DIALYSIS 2025-04-18 15:13:17 8 hrs F PRESCRIBED DAYS/WEEK 2025-04-18 15:13:17 3 Day/Wk F BLOOD FLOW-QWB 2025-04-18 15:13:17 406 F Total Kt/V 2025-04-18 15:13:17 1.59 F KT/V PRESCRIBED 2025-04-18 15:13:17 1.91 F URR% 2025-04-18 15:13:17 74 % F WEIGHT (KG) 2025-04-18 15:13:17 88.5 kg F HEIGHT IN INCHES 2025-04-18 15:13:17 64 Inches F Urea nitrogen [Mass/volume] in Serum or Plasma --post dialysis 2025-04-18 15:11:17 10 mg/dL F 9.0-23.0 Urea nitrogen [Mass/volume] in Serum or Plasma 2025-04-18 14:53:19 38 mg/dL F 9.0-23.0 Dialyzer STEPHENIE 2025-04-16 16:18:03 1455 Calc F LENGTH OF DIALYSIS 2025-04-16 16:18:03 182 min F WEIGHT - POST DAY 1 2025-04-16 16:18:03 88.1 kg F WEIGHT - PRE DAY 1 2025-04-16 16:18:03 88.9 kg F HEIGHT IN INCHES 2025-04-16 16:18:03 64 Inches F VM (KT/V MEAN VOL) 2025-04-16 16:18:03 41 F KT/V PRESCRIBED 2025-04-16 16:18:03 1.65 F Total Kt/V 2025-04-16 16:18:03 1.19 F stdKT/V Total 2025-04-16 16:18:03 N/A F BLOOD FLOW-QWB 2025-04-16 16:18:03 363 F CURRENT KRU 2025-04-16 16:18:03 F Unable to calculate: Pre BUN lab result is unknown BSA BEVERLY 2025-04-16 16:18:03 1.94 sq m F WEIGHT (KG) 2025-04-16 16:18:03 88.5 kg F Residual kt/v 2025-04-16 16:18:03 F Unable to calculate: Pre BUN lab result is unknown AMPUTATE FACTOR 2025-04-16 16:18:03 0 F TBW (Santos) 2025-04-16 16:18:03 37.01 Liters F eKt/V 2025-04-16 16:18:03 1 F Std Renal KT/V 2025-04-16 16:18:03 N/A F URR% 2025-04-16 16:18:03 66 % F DIALYZER FLOW-QD 2025-04-16 16:18:03 500 mL/min F PATIENT AGE 2025-04-16 16:18:03 74 Years F PRESCRIBED DAYS/WEEK 2025-04-16 16:18:03 1 Day/Wk F VT (KT/V TX VOL) 2025-04-16 16:18:03 40.8 L F spKt/V 2025-04-16 16:18:03 1.19 F nPCR 2025-04-16 16:18:03 0.82 G/KG/D F TOTAL HOURS/WEEK DIALYSIS 2025-04-16 16:18:03 8 hrs F stdKt/V (DIAL) 2025-04-16 16:18:03 N/A F Urea nitrogen [Mass/volume] in Serum or Plasma 2025-04-16 16:16:25 47 mg/dL F 9.0-23.0 Creatinine [Mass/volume] in Serum or Plasma 2025-04-16 16:16:25 5.77 mg/dL F 0.55-1.02 Urea nitrogen [Mass/volume] in Serum or Plasma --post dialysis 2025-04-16 15:44:17 16 mg/dL F 9.0-23.0 LENGTH OF DIALYSIS 2025-04-15 06:21:57 205 min F Dialyzer STEPHENIE 2025-04-15 06:21:57 1025 Calc F PATIENT AGE 2025-04-15 06:21:57 74 Years F PRESCRIBED DAYS/WEEK 2025-04-15 06:21:57 3 Day/Wk F VT (KT/V TX VOL) 2025-04-15 06:21:57 F Unable to calculate: Post BUN lab result is unknown AMPUTATE FACTOR 2025-04-15 06:21:57 0 F TBW (Santos) 2025-04-15 06:21:57 F Unable to calculate: Post BUN lab result is unknown stdKT/V Total 2025-04-15 06:21:57 F Unable to calculate: Post BUN lab result is unknown Std Renal KT/V 2025-04-15 06:21:57 F Unable to calculate: Post BUN lab result is unknown TOTAL HOURS/WEEK DIALYSIS 2025-04-15 06:21:57 8 hrs F URR% 2025-04-15 06:21:57 F Unable to calculate: Post BUN lab result is unknown,Unable to Calculate. DIALYZER FLOW-QD 2025-04-15 06:21:57 514 mL/min F BSA B[facility] 2025-04-15 06:21:57 F Unable to calculate: Post BUN lab result is unknown WEIGHT - POST DAY 1 2025-04-15 06:21:57 88.3 kg F WEIGHT - PRE DAY 1 2025-04-15 06:21:57 88.8 kg F VM (KT/V MEAN VOL) 2025-04-15 06:21:57 F Unable to calculate: Post BUN lab result is unknown Residual kt/v 2025-04-15 06:21:57 F Unable to calculate: Post BUN lab result is unknown KT/V PRESCRIBED 2025-04-15 06:21:57 F Unable to calculate: Post BUN lab result is unknown eKt/V 2025-04-15 06:21:57 F Unable to calculate: Post BUN lab result is unknown CURRENT KRU 2025-04-15 06:21:57 F Unable to calculate: Post BUN lab result is unknown HEIGHT IN INCHES 2025-04-15 06:21:57 64 Inches F WEIGHT (KG) 2025-04-15 06:21:57 88.5 kg F nPCR 2025-04-15 06:21:57 F Unable to calculate: Post BUN lab result is unknown Total Kt/V 2025-04-15 06:21:57 F Unable to calculate: Post BUN lab result is unknown spKt/V 2025-04-15 06:21:57 F Unable to calculate: Post BUN lab result is unknown stdKt/V (DIAL) 2025-04-15 06:21:57 F Unable to calculate: Post BUN lab result is unknown BLOOD FLOW-QWB 2025-04-15 06:21:57 400 F Urea nitrogen [Mass/volume] in Serum or Plasma 2025-04-15 04:52:20 57 mg/dL F 9.0-23.0 Creatinine [Mass/volume] in Serum or Plasma 2025-04-15 04:52:20 6.86 mg/dL F 0.55-1.02 Urea nitrogen [Mass/volume] in Serum or Plasma --post dialysis 2025-04-14 20:17:54 F Recollect - Unsp un specimen Dialyzer STEPHENIE 2025-03-27 21:50:11 1025 Calc F Std Renal KT/V 2025-03-27 21:50:11 N/A F WEIGHT - POST DAY 1 2025-03-27 21:50:11 89.4 kg F WEIGHT - PRE DAY 1 2025-03-27 21:50:11 91.3 kg F AMPUTATE FACTOR 2025-03-27 21:50:11 0 F BSA [place] 2025-03-27 21:50:11 1.94 sq m F WEIGHT (KG) 2025-03-27 21:50:11 88.5 kg F PATIENT AGE 2025-03-27 21:50:11 74 Years F Residual kt/v 2025-03-27 21:50:11 F VM (KT/V MEAN VOL) 2025-03-27 21:50:11 41.7 F KT/V PRESCRIBED 2025-03-27 21:50:11 1.82 F nPCR 2025-03-27 21:50:11 0.3 G/KG/D F VT (KT/V TX VOL) 2025-03-27 21:50:11 42.2 L F spKt/V 2025-03-27 21:50:11 1.31 F Total Kt/V 2025-03-27 21:50:11 1.31 F stdKt/V (DIAL) 2025-03-27 21:50:11 N/A F eKt/V 2025-03-27 21:50:11 1.12 F DIALYZER FLOW-QD 2025-03-27 21:50:11 500 mL/min F BLOOD FLOW-QWB 2025-03-27 21:50:11 436 F TOTAL HOURS/WEEK DIALYSIS 2025-03-27 21:50:11 3 hrs F URR% 2025-03-27 21:50:11 70 % F CURRENT KRU 2025-03-27 21:50:11 F LENGTH OF DIALYSIS 2025-03-27 21:50:11 209 min F HEIGHT IN INCHES 2025-03-27 21:50:11 64 Inches F stdKT/V Total 2025-03-27 21:50:11 N/A F TBW (Santos) 2025-03-27 21:50:11 37.33 Liters F PRESCRIBED DAYS/WEEK 2025-03-27 21:50:11 3 Day/Wk F Creatinine [Mass/volume] in Serum or Plasma 2025-03-27 21:48:20 5.75 mg/dL F 0.55-1.02 Urea nitrogen [Mass/volume] in Serum or Plasma 2025-03-27 21:48:20 30 mg/dL F 9.0-23.0 Urea nitrogen [Mass/volume] in Serum or Plasma --post dialysis 2025-03-27 19:20:17 9 mg/dL F 9.0-23.0 TOTAL HOURS/WEEK DIALYSIS 2025-03-17 16:29:22 10 hrs F DIALYZER FLOW-QD 2025-03-17 16:29:22 500 mL/min F spKt/V 2025-03-17 16:29:22 1.44 F stdKT/V Total 2025-03-17 16:29:22 N/A F VM (KT/V MEAN VOL) 2025-03-17 16:29:22 41.1 F PRESCRIBED DAYS/WEEK 2025-03-17 16:29:22 3 Day/Wk F Total Kt/V 2025-03-17 16:29:22 1.44 F Std Renal KT/V 2025-03-17 16:29:22 N/A F WEIGHT - POST DAY 1 2025-03-17 16:29:22 94.6 kg F Residual kt/v 2025-03-17 16:29:22 F PATIENT AGE 2025-03-17 16:29:22 74 Years F WEIGHT - PRE DAY 1 2025-03-17 16:29:22 97.1 kg F URR% 2025-03-17 16:29:22 71 % F CURRENT KRU 2025-03-17 16:29:22 F Dialyzer STEPHENIE 2025-03-17 16:29:22 1264 Calc F VT (KT/V TX VOL) 2025-03-17 16:29:22 41.5 L F HEIGHT IN INCHES 2025-03-17 16:29:22 64 Inches F TBW (Santos) 2025-03-17 16:29:22 38.61 Liters F KT/V PRESCRIBED 2025-03-17 16:29:22 1.96 F WEIGHT (KG) 2025-03-17 16:29:22 88.5 kg F nPCR 2025-03-17 16:29:22 0.83 G/KG/D F eKt/V 2025-03-17 16:29:22 1.23 F AMPUTATE FACTOR 2025-03-17 16:29:22 0 F LENGTH OF DIALYSIS 2025-03-17 16:29:22 211 min F stdKt/V (DIAL) 2025-03-17 16:29:22 N/A F BLOOD FLOW-QWB 2025-03-17 16:29:22 450 F BSA [place] 2025-03-17 16:29:22 1.94 sq m F DIALYZER FLOW-QD 2025-03-17 16:29:22 500 mL/min F Dialyzer STEPHENIE 2025-03-17 16:29:22 1264 Calc F BSA B[place] 2025-03-17 16:29:22 1.94 sq m F WEIGHT - PRE DAY 1 2025-03-17 16:29:22 97.1 kg F VT (KT/V TX VOL) 2025-03-17 16:29:22 41.5 L F HEIGHT IN INCHES 2025-03-17 16:29:22 64 Inches F Residual kt/v 2025-03-17 16:29:22 F nPCR 2025-03-17 16:29:22 0.83 G/KG/D F TBW (Santos) 2025-03-17 16:29:22 38.61 Liters F stdKT/V Total 2025-03-17 16:29:22 N/A F URR% 2025-03-17 16:29:22 71 % F LENGTH OF DIALYSIS 2025-03-17 16:29:22 211 min F PATIENT AGE 2025-03-17 16:29:22 74 Years F WEIGHT (KG) 2025-03-17 16:29:22 88.5 kg F PRESCRIBED DAYS/WEEK 2025-03-17 16:29:22 3 Day/Wk F KT/V PRESCRIBED 2025-03-17 16:29:22 1.96 F Std Renal KT/V 2025-03-17 16:29:22 N/A F Total Kt/V 2025-03-17 16:29:22 1.44 F BLOOD FLOW-QWB 2025-03-17 16:29:22 450 F WEIGHT - POST DAY 1 2025-03-17 16:29:22 94.6 kg F AMPUTATE FACTOR 2025-03-17 16:29:22 0 F spKt/V 2025-03-17 16:29:22 1.44 F VM (KT/V MEAN VOL) 2025-03-17 16:29:22 41.1 F eKt/V 2025-03-17 16:29:22 1.23 F stdKt/V (DIAL) 2025-03-17 16:29:22 N/A F TOTAL HOURS/WEEK DIALYSIS 2025-03-17 16:29:22 10 hrs F CURRENT KRU 2025-03-17 16:29:22 F Urea nitrogen [Mass/volume] in Serum or Plasma 2025-03-17 16:27:17 41 mg/dL F 9.0-23.0 Urea nitrogen [Mass/volume] in Serum or Plasma 2025-03-17 16:27:17 41 mg/dL F 9.0-23.0 Urea nitrogen [Mass/volume] in Serum or Plasma --post dialysis 2025-03-17 15:50:14 12 mg/dL F 9.0-23.0 Urea nitrogen [Mass/volume] in Serum or Plasma --post dialysis 2025-03-17 15:50:14 12 mg/dL F 9.0-23.0 PRESCRIBED DAYS/WEEK 2025-03-13 01:14:56 3 Day/Wk F Total Kt/V 2025-03-13 01:14:56 0.96 F HEIGHT IN INCHES 2025-03-13 01:14:56 64 Inches F spKt/V 2025-03-13 01:14:56 0.96 F TOTAL HOURS/WEEK DIALYSIS 2025-03-13 01:14:56 6 hrs F LENGTH OF DIALYSIS 2025-03-13 01:14:56 214 min F CURRENT KRU 2025-03-13 01:14:56 F URR% 2025-03-13 01:14:56 57 % F VT (KT/V TX VOL) 2025-03-13 01:14:56 63.5 L F AMPUTATE FACTOR 2025-03-13 01:14:56 0 F WEIGHT - PRE DAY 1 2025-03-13 01:14:56 96.8 kg F WEIGHT (KG) 2025-03-13 01:14:56 88.5 kg F DIALYZER FLOW-QD 2025-03-13 01:14:56 500 mL/min F Residual kt/v 2025-03-13 01:14:56 F nPCR 2025-03-13 01:14:56 0.35 G/KG/D F VM (KT/V MEAN VOL) 2025-03-13 01:14:56 40.9 F WEIGHT - POST DAY 1 2025-03-13 01:14:56 93.5 kg F PATIENT AGE 2025-03-13 01:14:56 74 Years F stdKt/V (DIAL) 2025-03-13 01:14:56 N/A F KT/V PRESCRIBED 2025-03-13 01:14:56 1.98 F Std Renal KT/V 2025-03-13 01:14:56 N/A F BLOOD FLOW-QWB 2025-03-13 01:14:56 450 F stdKT/V Total 2025-03-13 01:14:56 N/A F Dialyzer STEPHENIE 2025-03-13 01:14:56 1264 Calc F TBW (Santos) 2025-03-13 01:14:56 38.34 Liters F eKt/V 2025-03-13 01:14:56 0.84 F BSA [place] 2025-03-13 01:14:56 1.94 sq m F Urea nitrogen [Mass/volume] in Serum or Plasma 2025-03-13 01:12:27 28 mg/dL F 9.0-23.0 Urea nitrogen [Mass/volume] in Serum or Plasma --post dialysis 2025-03-12 19:41:20 12 mg/dL F 9.0-23.0 Creatinine [Mass/volume] in Serum or Plasma 2025-02-19 13:00:20 6.14 mg/dL F 0.55-1.02 AMPUTATE FACTOR 2025-02-05 23:20:23 0 F Std Renal KT/V 2025-02-05 23:20:23 N/A F Residual kt/v 2025-02-05 23:20:23 F Unable to calculate: Post BUN lab result is unknown URR% 2025-02-05 23:20:23 65 % F TOTAL HOURS/WEEK DIALYSIS 2025-02-05 23:20:23 9 hrs F WEIGHT - PRE DAY 1 2025-02-05 23:20:23 94.7 kg F Total Kt/V 2025-02-05 23:20:23 1.22 F LENGTH OF DIALYSIS 2025-02-05 23:20:23 172 min F KT/V PRESCRIBED 2025-02-05 23:20:23 1.61 F VM (KT/V MEAN VOL) 2025-02-05 23:20:23 40.9 F VT (KT/V TX VOL) 2025-02-05 23:20:23 40.2 L F stdKT/V Total 2025-02-05 23:20:23 N/A F PRESCRIBED DAYS/WEEK 2025-02-05 23:20:23 3 Day/Wk F CURRENT KRU 2025-02-05 23:20:23 F Unable to calculate: Post BUN lab result is unknown spKt/V 2025-02-05 23:20:23 1.22 F BLOOD FLOW-QWB 2025-02-05 23:20:23 450 F Dialyzer STEPHENIE 2025-02-05 23:20:23 1264 Calc F DIALYZER FLOW-QD 2025-02-05 23:20:23 500 mL/min F stdKt/V (DIAL) 2025-02-05 23:20:23 N/A F BSA [place] 2025-02-05 23:20:23 1.92 sq m F PATIENT AGE 2025-02-05 23:20:23 74 Years F WEIGHT (KG) 2025-02-05 23:20:23 87 kg F WEIGHT - POST DAY 1 2025-02-05 23:20:23 92.3 kg F HEIGHT IN INCHES 2025-02-05 23:20:23 64 Inches F TBW (Santos) 2025-02-05 23:20:23 38.04 Liters F nPCR 2025-02-05 23:20:23 0.75 G/KG/D F eKt/V 2025-02-05 23:20:23 1.01 F DIALYZER FLOW-QD 2025-02-05 23:20:23 500 mL/min F Dialyzer STEPHENIE 2025-02-05 23:20:23 1264 Calc F BSA [place] 2025-02-05 23:20:23 1.92 sq m F WEIGHT - PRE DAY 1 2025-02-05 23:20:23 94.7 kg F PRESCRIBED DAYS/WEEK 2025-02-05 23:20:23 3 Day/Wk F VT (KT/V TX VOL) 2025-02-05 23:20:23 40.2 L F Total Kt/V 2025-02-05 23:20:23 1.22 F AMPUTATE FACTOR 2025-02-05 23:20:23 0 F VM (KT/V MEAN VOL) 2025-02-05 23:20:23 40.9 F stdKt/V (DIAL) 2025-02-05 23:20:23 N/A F CURRENT KRU 2025-02-05 23:20:23 F Unable to calculate: Post BUN lab result is unknown LENGTH OF DIALYSIS 2025-02-05 23:20:23 172 min F HEIGHT IN INCHES 2025-02-05 23:20:23 64 Inches F nPCR 2025-02-05 23:20:23 0.75 G/KG/D F spKt/V 2025-02-05 23:20:23 1.22 F Std Renal KT/V 2025-02-05 23:20:23 N/A F stdKT/V Total 2025-02-05 23:20:23 N/A F BLOOD FLOW-QWB 2025-02-05 23:20:23 450 F PATIENT AGE 2025-02-05 23:20:23 74 Years F URR% 2025-02-05 23:20:23 65 % F WEIGHT - POST DAY 1 2025-02-05 23:20:23 92.3 kg F WEIGHT (KG) 2025-02-05 23:20:23 87 kg F Residual kt/v 2025-02-05 23:20:23 F Unable to calculate: Post BUN lab result is unknown KT/V PRESCRIBED 2025-02-05 23:20:23 1.61 F TBW (Santos) 2025-02-05 23:20:23 38.04 Liters F eKt/V 2025-02-05 23:20:23 1.01 F TOTAL HOURS/WEEK DIALYSIS 2025-02-05 23:20:23 9 hrs F Urea nitrogen [Mass/volume] in Serum or Plasma --post dialysis 2025-02-05 23:18:18 14 mg/dL F 9.0-23.0 Urea nitrogen [Mass/volume] in Serum or Plasma --post dialysis 2025-02-05 23:18:18 14 mg/dL F 9.0-23.0 Urea nitrogen [Mass/volume] in Serum or Plasma 2025-02-05 22:16:11 40 mg/dL F 9.0-23.0 Urea nitrogen [Mass/volume] in Serum or Plasma 2025-02-05 22:16:11 40 mg/dL F 9.0-23.0 WEIGHT - PRE DAY 1 2025-01-27 18:43:52 92.4 kg F WEIGHT - POST DAY 1 2025-01-27 18:43:52 87.1 kg F nPCR 2025-01-27 18:43:52 0.93 G/KG/D F LENGTH OF DIALYSIS 2025-01-27 18:43:52 212 min F PRESCRIBED DAYS/WEEK 2025-01-27 18:43:52 3 Day/Wk F stdKT/V Total 2025-01-27 18:43:52 N/A F AMPUTATE FACTOR 2025-01-27 18:43:52 0 F stdKt/V (DIAL) 2025-01-27 18:43:52 N/A F Total Kt/V 2025-01-27 18:43:52 1.37 F HEIGHT IN INCHES 2025-01-27 18:43:52 64 Inches F eKt/V 2025-01-27 18:43:52 1.17 F DIALYZER FLOW-QD 2025-01-27 18:43:52 483 mL/min F WEIGHT (KG) 2025-01-27 18:43:52 84.5 kg F TBW (Santos) 2025-01-27 18:43:52 36.76 Liters F VM (KT/V MEAN VOL) 2025-01-27 18:43:52 41.2 F BSA [place] 2025-01-27 18:43:52 1.9 sq m F BLOOD FLOW-QWB 2025-01-27 18:43:52 432 F Residual kt/v 2025-01-27 18:43:52 F Unable to calculate: Post BUN lab result is unknown PATIENT AGE 2025-01-27 18:43:52 74 Years F Dialyzer STEPHENIE 2025-01-27 18:43:52 1264 Calc F Std Renal KT/V 2025-01-27 18:43:52 N/A F spKt/V 2025-01-27 18:43:52 1.37 F KT/V PRESCRIBED 2025-01-27 18:43:52 2.02 F CURRENT KRU 2025-01-27 18:43:52 F Unable to calculate: Post BUN lab result is unknown VT (KT/V TX VOL) 2025-01-27 18:43:52 43.1 L F TOTAL HOURS/WEEK DIALYSIS 2025-01-27 18:43:52 8 hrs F URR% 2025-01-27 18:43:52 67 % F Urea nitrogen [Mass/volume] in Serum or Plasma --post dialysis 2025-01-27 18:42:24 20 mg/dL F 9.0-23.0 Urea nitrogen [Mass/volume] in Serum or Plasma 2025-01-27 14:53:32 60 mg/dL F 9.0-23.0 KT/V PRESCRIBED 2025-01-21 00:41:32 1.83 F VT (KT/V TX VOL) 2025-01-21 00:41:32 51.1 L F Residual kt/v 2025-01-21 00:41:32 F LENGTH OF DIALYSIS 2025-01-21 00:41:32 192 min F HEIGHT IN INCHES 2025-01-21 00:41:32 64 Inches F PRESCRIBED DAYS/WEEK 2025-01-21 00:41:32 3 Day/Wk F BLOOD FLOW-QWB 2025-01-21 00:41:32 389 F WEIGHT - PRE DAY 1 2025-01-21 00:41:32 91.5 kg F URR% 2025-01-21 00:41:32 58 % F VM (KT/V MEAN VOL) 2025-01-21 00:41:32 40.6 F nPCR 2025-01-21 00:41:32 0.76 G/KG/D F stdKt/V (DIAL) 2025-01-21 00:41:32 N/A F BSA [place] 2025-01-21 00:41:32 1.9 sq m F TBW (Santos) 2025-01-21 00:41:32 37.15 Liters F PATIENT AGE 2025-01-21 00:41:32 74 Years F spKt/V 2025-01-21 00:41:32 1.01 F TOTAL HOURS/WEEK DIALYSIS 2025-01-21 00:41:32 9 hrs F WEIGHT (KG) 2025-01-21 00:41:32 84.5 kg F Total Kt/V 2025-01-21 00:41:32 1.01 F Std Renal KT/V 2025-01-21 00:41:32 N/A F WEIGHT - POST DAY 1 2025-01-21 00:41:32 88.7 kg F eKt/V 2025-01-21 00:41:32 0.86 F CURRENT KRU 2025-01-21 00:41:32 F DIALYZER FLOW-QD 2025-01-21 00:41:32 500 mL/min F AMPUTATE FACTOR 2025-01-21 00:41:32 0 F Dialyzer STEPHENIE 2025-01-21 00:41:32 1264 Calc F stdKT/V Total 2025-01-21 00:41:32 N/A F Urea nitrogen [Mass/volume] in Serum or Plasma 2025-01-21 00:17:16 55 mg/dL F 9.0-23.0 Urea nitrogen [Mass/volume] in Serum or Plasma --post dialysis 2025-01-20 23:08:12 23 mg/dL F 9.0-23.0 Total Kt/V 2025-01-16 18:03:25 0.99 F WEIGHT - PRE DAY 1 2025-01-16 18:03:25 91.7 kg F BSA [place] 2025-01-16 18:03:25 1.9 sq m F eKt/V 2025-01-16 18:03:25 0.81 F VT (KT/V TX VOL) 2025-01-16 18:03:25 40.2 L F Residual kt/v 2025-01-16 18:03:25 F KT/V PRESCRIBED 2025-01-16 18:03:25 1.4 F LENGTH OF DIALYSIS 2025-01-16 18:03:25 147 min F nPCR 2025-01-16 18:03:25 0.72 G/KG/D F URR% 2025-01-16 18:03:25 59 % F PATIENT AGE 2025-01-16 18:03:25 74 Years F WEIGHT (KG) 2025-01-16 18:03:25 84.5 kg F stdKt/V (DIAL) 2025-01-16 18:03:25 N/A F WEIGHT - POST DAY 1 2025-01-16 18:03:25 90.5 kg F BLOOD FLOW-QWB 2025-01-16 18:03:25 400 F VM (KT/V MEAN VOL) 2025-01-16 18:03:25 40.6 F DIALYZER FLOW-QD 2025-01-16 18:03:25 500 mL/min F TOTAL HOURS/WEEK DIALYSIS 2025-01-16 18:03:25 9 hrs F Std Renal KT/V 2025-01-16 18:03:25 N/A F TBW (Santos) 2025-01-16 18:03:25 37.6 Liters F CURRENT KRU 2025-01-16 18:03:25 F stdKT/V Total 2025-01-16 18:03:25 N/A F HEIGHT IN INCHES 2025-01-16 18:03:25 64 Inches F Dialyzer STEPHENIE 2025-01-16 18:03:25 1264 Calc F PRESCRIBED DAYS/WEEK 2025-01-16 18:03:25 3 Day/Wk F spKt/V 2025-01-16 18:03:25 0.99 F AMPUTATE FACTOR 2025-01-16 18:03:25 0 F Urea nitrogen [Mass/volume] in Serum or [...] 17:43:26 F Recollect - Unsp un specimen HEIGHT IN INCHES 2025-01-12 19:17:29 64 Inches F WEIGHT (KG) 2025-01-12 19:17:29 84.5 kg F PATIENT AGE 2025-01-12 19:17:29 74 Years F AMPUTATE FACTOR 2025-01-12 19:17:29 0 F Std Renal KT/V VT (KT/V TX VOL) Residual kt/v KT/V PRESCRIBED URR% stdKT/V Total TOTAL HOURS/WEEK DIALYSIS Urea nitrogen [Mass/volume] in Serum or Plasma AMPUTATE FACTOR TBW (Santos) Total Kt/V LENGTH OF DIALYSIS nPCR BSA BEVERLY PATIENT AGE Dialyzer STEPHENIE stdKt/V (DIAL) CURRENT KRU BLOOD FLOW-QWB VM (KT/V MEAN VOL) spKt/V PRESCRIBED DAYS/WEEK WEIGHT - POST DAY 1 eKt/V DIALYZER FLOW-QD WEIGHT - PRE DAY 1 HEIGHT IN INCHES WEIGHT (KG) spKt/V AMPUTATE FACTOR URR% CURRENT KRU eKt/V VT (KT/V TX VOL) TBW (Santos) Dialyzer STEPHENIE TOTAL HOURS/WEEK DIALYSIS DIALYZER FLOW-QD Urea nitrogen [Mass/volume] in Serum or Plasma BSA BEVERLY PRESCRIBED DAYS/WEEK Residual kt/v stdKt/V (DIAL) stdKT/V Total PATIENT AGE HEIGHT IN INCHES WEIGHT - POST DAY 1 WEIGHT - PRE DAY 1 Std Renal KT/V nPCR KT/V PRESCRIBED BLOOD FLOW-QWB VM (KT/V MEAN VOL) LENGTH OF DIALYSIS WEIGHT (KG) Total Kt/V PRESCRIBED DAYS/WEEK TOTAL HOURS/WEEK DIALYSIS WEIGHT - PRE DAY 1 Dialyzer STPEHENIE BLOOD FLOW-QWB DIALYZER FLOW-QD LENGTH OF DIALYSIS WEIGHT - POST DAY 1 CURRENT KRU BSA BEVERLY Total Kt/V stdKT/V Total KT/V PRESCRIBED spKt/V VT (KT/V TX VOL) nPCR VM (KT/V MEAN VOL) TBW (Santos) stdKt/V (DIAL) eKt/V Residual kt/v Std Renal KT/V Anemia Description Draw Date Result/Unit Status Ref Range Result Comments IRON SATURATION 2025-04-16 18:26:50 11 % F 16.0-46.0 TIBC 2025-04-16 18:26:50 225 ug/dL F 250.0-425.0 Ferritin [Mass/volume] in Serum or Plasma 2025-04-16 18:26:25 348 ng/mL F 7.0-271.0 Iron binding capacity.unsaturated [Mass/volume] in Serum or Plasma 2025-04-16 18:25:07 200 ug/dL F 80.0-375.0 Iron [Mass/volume] in Serum or Plasma 2025-04-16 18:25:07 25 ug/dL F 50.0-170.0 HCT CALC HGBX3 2025-04-16 17:31:12 24.3 % F 37.0-47.0 Hemoglobin [Mass/volume] in Blood 2025-04-16 17:30:08 8.1 g/dL F 12.0-16.0 MCHC [Mass/volume] by Automated count 2025-04-16 17:30:08 30.9 g/dL F 29.6-35.3 Platelets [#/volume] in Blood by Automated count 2025-04-16 17:30:08 328 x 10^3 cells/uL F 140.0-450.0 Erythrocyte distribution width [Ratio] by Automated count 2025-04-16 17:30:08 17.3 % F 11.0-15.0 Erythrocytes [#/volume] in Blood by Automated count 2025-04-16 17:30:08 3.07 x 10^6 cells/uL F 3.85-5.2 Hematocrit [Volume Fraction] of Blood by Automated count 2025-04-16 17:30:08 26.3 % F 37.0-47.0 MCV [Entitic volume] by Automated count 2025-04-16 17:30:08 85.7 fL F 80.0-100.0 MCH [Entitic mass] by Automated count 2025-04-16 17:30:08 26.5 pg F 25.9-34.2 HCT CALC HGBX3 2025-04-15 07:34:14 24.3 % F 37.0-47.0 Reticulocytes/100 erythrocytes in Blood by Automated count 2025-04-15 07:33:14 3.06 % F 0.7-2.5 Hematocrit [Volume Fraction] of Blood by Automated count 2025-04-15 07:33:14 26.4 % F 37.0-47.0 Hemoglobin [Mass/volume] in Blood 2025-04-15 07:33:14 8.1 g/dL F 12.0-16.0 MCV [Entitic volume] by Automated count 2025-04-15 07:33:14 86.5 fL F 80.0-100.0 Platelets [#/volume] in Blood by Automated count 2025-04-15 07:33:14 361 x 10^3 cells/uL F 140.0-450.0 Erythrocytes [#/volume] in Blood by Automated count 2025-04-15 07:33:14 3.06 x 10^6 cells/uL F 3.85-5.2 MCHC [Mass/volume] by Automated count 2025-04-15 07:33:14 30.7 g/dL F 29.6-35.3 ABSOLUTE RETIC COUNT 2025-04-15 07:33:14 0.094 x 10^6 cells/uL F 0.035-0.127 MCH [Entitic mass] by Automated count 2025-04-15 07:33:14 26.5 pg F 25.9-34.2 Erythrocyte distribution width [Ratio] by Automated count 2025-04-15 07:33:14 16.4 % F 11.0-15.0 Reticulocytes/100 erythrocytes in Blood by Automated count 2025-04-09 06:49:13 F RECOLLECT - OUTDATED SPECIMEN ABSOLUTE RETIC COUNT 2025-04-09 06:49:13 F RECOLLECT - OUTDATED SPECIMEN HCT CALC HGBX3 2025-04-04 22:08:08 26.1 % F 37.0-47.0 Hemoglobin [Mass/volume] in Blood 2025-04-04 22:07:13 8.7 g/dL F 12.0-16.0 IRON SATURATION 2025-03-28 00:40:54 10 % F 16.0-46.0 TIBC 2025-03-28 00:40:54 223 ug/dL F 250.0-425.0 Iron [Mass/volume] in Serum or Plasma 2025-03-28 00:33:31 22 ug/dL F 50.0-170.0 Iron binding capacity.unsaturated [Mass/volume] in Serum or Plasma 2025-03-28 00:33:31 201 ug/dL F 80.0-375.0 Ferritin [Mass/volume] in Serum or Plasma 2025-03-27 22:22:18 214 ng/mL F 7.0-271.0 HCT CALC HGBX3 2025-03-27 20:51:56 29.4 % F 37.0-47.0 Erythrocyte distribution width [Ratio] by Automated count 2025-03-27 20:51:12 17.4 % F 11.0-15.0 Hemoglobin [Mass/volume] in Blood 2025-03-27 20:51:12 9.8 g/dL F 12.0-16.0 Platelets [#/volume] in Blood by Automated count 2025-03-27 20:51:12 292 x 10^3 cells/uL F 140.0-450.0 MCH [Entitic mass] by Automated count 2025-03-27 20:51:12 27.5 pg F 25.9-34.2 MCHC [Mass/volume] by Automated count 2025-03-27 20:51:12 30.6 g/dL F 29.6-35.3 Erythrocytes [#/volume] in Blood by Automated count 2025-03-27 20:51:12 3.56 x 10^6 cells/uL F 3.85-5.2 Hematocrit [Volume Fraction] of Blood by Automated count 2025-03-27 20:51:12 32 % F 37.0-47.0 MCV [Entitic volume] by Automated count 2025-03-27 20:51:12 89.9 fL F 80.0-100.0 HCT CALC HGBX3 2025-03-05 15:52:06 28.5 % F 37.0-47.0 Hemoglobin [Mass/volume] in Blood 2025-03-05 15:51:14 9.5 g/dL F 12.0-16.0 HCT CALC HGBX3 2025-02-19 12:56:56 28.8 % F 37.0-47.0 Erythrocyte distribution width [Ratio] by Automated count 2025-02-19 12:56:16 18.1 % F 11.0-15.0 Hemoglobin [Mass/volume] in Blood 2025-02-19 12:56:16 9.6 g/dL F 12.0-16.0 Platelets [#/volume] in Blood by Automated count 2025-02-19 12:56:16 235 x 10^3 cells/uL F 140.0-450.0 Hematocrit [Volume Fraction] of Blood by Automated count 2025-02-19 12:56:16 30.9 % F 37.0-47.0 MCV [Entitic volume] by Automated count 2025-02-19 12:56:16 92.3 fL F 80.0-100.0 MCH [Entitic mass] by Automated count 2025-02-19 12:56:14 28.5 pg F 25.9-34.2 MCHC [Mass/volume] by Automated count 2025-02-19 12:56:14 30.9 g/dL F 29.6-35.3 Erythrocytes [#/volume] in Blood by Automated count 2025-02-19 12:56:14 3.35 x 10^6 cells/uL F 3.85-5.2 HCT CALC HGBX3 2025-01-29 19:08:07 27 % [...] Plasma 2025-01-16 07:29:54 206 ug/dL F 80.0-375.0 Erythrocyte distribution width [Ratio] by Automated count 2025-01-16 05:43:21 16.7 % F 11.0-15.0 Hemoglobin [Mass/volume] in Blood 2025-01-16 05:43:21 9.6 g/dL F 12.0-16.0 Platelets [#/volume] in Blood by Automated count 2025-01-16 05:43:21 218 x 10^3 cells/uL F 140.0-450.0 MCH [Entitic mass] by Automated count 2025-01-16 05:43:21 27.1 pg F 25.9-34.2 MCHC [Mass/volume] by Automated count 2025-01-16 05:43:21 29.7 g/dL F 29.6-35.3 Erythrocytes [#/volume] in Blood by Automated count 2025-01-16 05:43:21 3.53 x 10^6 cells/uL F 3.85-5.2 Hematocrit [Volume Fraction] of Blood by Automated count 2025-01-16 05:43:21 32.2 % F 37.0-47.0 MCV [Entitic volume] by Automated count 2025-01-16 05:43:21 91.2 fL F 80.0-100.0 Ferritin [Mass/volume] in Serum or Plasma 2025-01-16 02:42:24 303 ng/mL F 7.0-271.0 Comorbidities Description Draw Date Result/Unit Status Ref Range Result Comments Hemoglobin A1c/Hemoglobin.total in Blood 2025-04-16 17:58:19 6.1 %A1c F 0.0-5.6 FluidBP Description Draw Date Result/Unit Status Ref Range Result Comments Sodium [Moles/volume] in Serum or Plasma 2025-04-16 18:25:07 135 mEq/L F 136.0-145.0 Sodium [Moles/volume] in Serum or Plasma 2025-04-15 08:27:28 138 mEq/L F 136.0-145.0 Sodium [Moles/volume] in Serum or Plasma 2025-03-28 00:33:31 137 mEq/L F 136.0-145.0 Sodium [Moles/volume] in Serum or Plasma 2025-02-19 23:37:41 143 mEq/L F 136.0-145.0 Sodium [Moles/volume] in Serum or Plasma 2025-01-16 07:29:53 140 mEq/L F 136.0-145.0 General Description Draw Date Result/Unit Status Ref Range Result Comments Aluminum [Mass/volume] in Serum or Plasma 2025-04-16 19:05:44 10 ug/L F 0.0-9.0 Chloride [Moles/volume] in Serum or Plasma 2025-04-16 18:25:07 94 mEq/L F 98.0-107.0 Aspartate aminotransferase [Enzymatic activity/volume] in Serum or Plasma 2025-04-16 16:16:25 16 U/L F 0.0-33.0 Alanine aminotransferase [Enzymatic activity/volume] in Serum or Plasma 2025-04-16 16:16:25 13 U/L F 10.0-49.0 Alanine aminotransferase [Enzymatic activity/volume] in Serum or Plasma 2025-04-15 04:52:20 13 U/L F 10.0-49.0 Alanine aminotransferase [Enzymatic activity/volume] in Serum or Plasma 2025-04-02 00:15:17 11 U/L F 10.0-49.0 Chloride [Moles/volume] in Serum or Plasma 2025-03-28 00:33:31 98 mEq/L F 98.0-107.0 Aspartate aminotransferase [Enzymatic activity/volume] in Serum or Plasma 2025-03-27 21:48:20 21 U/L F 0.0-33.0 Aluminum [Mass/volume] in Serum or Plasma 2025-03-27 20:14:24 10 ug/L F 0.0-9.0 Chloride [Moles/volume] in Serum or Plasma 2025-02-19 23:37:41 102 mEq/L F 98.0-107.0 Aspartate aminotransferase [Enzymatic activity/volume] in Serum or Plasma 2025-02-19 13:00:20 16 U/L F 0.0-33.0 Alanine aminotransferase [Enzymatic activity/volume] in Serum or Plasma 2025-02-19 13:00:20 13 U/L F 10.0-49.0 Chloride [Moles/volume] in Serum or Plasma 2025-01-16 07:29:53 97 mEq/L F 98.0-107.0 Aspartate aminotransferase [Enzymatic activity/volume] in Serum or Plasma 2025-01-15 19:04:28 25 U/L F 0.0-33.0 Alanine aminotransferase [Enzymatic activity/volume] in Serum or Plasma 2025-01-15 19:04:28 17 U/L F 10.0-49.0 InfectionVaccination Description Draw Date Result/Unit Status Ref Range Result Comments Neutrophils [#/volume] in Blood by Automated count 2025-04-16 17:30:08 5042 Cells/uL F 2000.0-8800.0 Lymphocytes [#/volume] in Blood by Automated count 2025-04-16 17:30:08 1073 Cells/uL F 620.0-3660.0 Eosinophils [#/volume] in Blood by Automated count 2025-04-16 17:30:08 500 Cells/uL F 0.0-700.0 Neutrophils/100 leukocytes in Blood by Automated count 2025-04-16 17:30:08 68.6 % F Lymphocytes/100 leukocytes in Blood by Automated count 2025-04-16 17:30:08 14.6 % F Leukocytes [#/volume] in Blood by Automated count 2025-04-16 17:30:08 7.4 x 10^3 cells/uL F 4.0-11.0 Monocytes/100 leukocytes in Blood by Automated count 2025-04-16 17:30:08 9.5 % F Basophils/100 leukocytes in Blood by Automated count 2025-04-16 17:30:08 0.5 % F Eosinophils/100 leukocytes in Blood by Automated count 2025-04-16 17:30:08 6.8 % F Monocytes [#/volume] in Blood by Automated count 2025-04-16 17:30:08 698 Cells/uL F 0.0-1100.0 Basophils [#/volume] in Blood by Automated count 2025-04-16 17:30:08 37 Cells/uL F 0.0-400.0 Lymphocytes [#/volume] in Blood by Automated count 2025-04-15 07:33:14 870 Cells/uL F 620.0-3660.0 Basophils/100 leukocytes in Blood by Automated count 2025-04-15 07:33:14 1.3 % F Eosinophils/100 leukocytes in Blood by Automated count 2025-04-15 07:33:14 7 % F Leukocytes [#/volume] in Blood by Automated count 2025-04-15 07:33:14 7.2 x 10^3 cells/uL F 4.0-11.0 Monocytes [#/volume] in Blood by Automated count 2025-04-15 07:33:14 522 Cells/uL F 0.0-1100.0 Basophils [#/volume] in Blood by Automated count 2025-04-15 07:33:14 94 Cells/uL F 0.0-400.0 Neutrophils/100 leukocytes in Blood by Automated count 2025-04-15 07:33:14 72.5 % F Monocytes/100 leukocytes in Blood by Automated count 2025-04-15 07:33:14 7.2 % F Eosinophils [#/volume] in Blood by Automated count 2025-04-15 07:33:14 508 Cells/uL F 0.0-700.0 Lymphocytes/100 leukocytes in Blood by Automated count 2025-04-15 07:33:14 12 % F Neutrophils [#/volume] in Blood by Automated count 2025-04-15 07:33:14 5256 Cells/uL F 2000.0-8800.0 Basophils/100 leukocytes in Blood by Automated count 2025-03-27 20:51:12 0.7 % F Eosinophils/100 leukocytes in Blood by Automated count 2025-03-27 20:51:12 7.2 % F Lymphocytes/100 leukocytes in Blood by Automated count 2025-03-27 20:51:12 18.7 % F Monocytes/100 leukocytes in Blood by Automated count 2025-03-27 20:51:12 9.9 % F Neutrophils/100 leukocytes in Blood by Automated count 2025-03-27 20:51:12 63.6 % F Monocytes [#/volume] in Blood by Automated count 2025-03-27 20:51:12 587 Cells/uL F 0.0-1100.0 Basophils [#/volume] in Blood by Automated count 2025-03-27 20:51:12 42 Cells/uL F 0.0-400.0 Eosinophils [#/volume] in Blood by Automated count 2025-03-27 20:51:12 427 Cells/uL F 0.0-700.0 Neutrophils [#/volume] in Blood by Automated count 2025-03-27 20:51:12 3771 Cells/uL F 2000.0-8800.0 Leukocytes [#/volume] in Blood by Automated count 2025-03-27 20:51:12 5.9 x 10^3 cells/uL F 4.0-11.0 Lymphocytes [#/volume] in Blood by Automated count 2025-03-27 20:51:12 1109 Cells/uL F 620.0-3660.0 Neutrophils/100 leukocytes in Blood by Automated count 2025-02-19 12:56:16 64.6 % F Monocytes [#/volume] in Blood by Automated count 2025-02-19 12:56:16 421 Cells/uL F 0.0-1100.0 Basophils [#/volume] in Blood by Automated count 2025-02-19 12:56:16 11 Cells/uL F 0.0-400.0 Eosinophils [#/volume] in Blood by Automated count 2025-02-19 12:56:16 310 Cells/uL F 0.0-700.0 Eosinophils/100 leukocytes in Blood by Automated count 2025-02-19 12:56:14 5.9 % F Basophils/100 leukocytes in Blood by Automated count 2025-02-19 12:56:14 0.2 % F Lymphocytes/100 leukocytes in Blood by Automated count 2025-02-19 12:56:14 21.2 % F Monocytes/100 leukocytes in Blood by Automated count 2025-02-19 12:56:14 8 % F Neutrophils [#/volume] in Blood by Automated count 2025-02-19 12:56:14 3398 Cells/uL F 2000.0-8800.0 Leukocytes [#/volume] in Blood by Automated count 2025-02-19 12:56:14 5.3 x 10^3 cells/uL F 4.0-11.0 Lymphocytes [#/volume] in Blood by Automated count 2025-02-19 12:56:14 1115 Cells/uL F 620.0-3660.0 Basophils/100 leukocytes in Blood by Automated count 2025-01-16 05:43:21 0.3 % F Lymphocytes/100 leukocytes in Blood by Automated count 2025-01-16 05:43:21 22.3 % F Monocytes/100 leukocytes in Blood by Automated count 2025-01-16 05:43:21 7.9 % F Neutrophils/100 leukocytes in Blood by Automated count 2025-01-16 05:43:21 61.9 % F Eosinophils/100 leukocytes in Blood by Automated count 2025-01-16 05:43:21 7.5 % F Monocytes [#/volume] in Blood by Automated count 2025-01-16 05:43:21 479 Cells/uL F 0.0-1100.0 Basophils [#/volume] in Blood by Automated count 2025-01-16 05:43:21 18 Cells/uL F 0.0-400.0 Eosinophils [#/volume] in Blood by Automated count 2025-01-16 05:43:21 454 Cells/uL F 0.0-700.0 Neutrophils [#/volume] in Blood by Automated count 2025-01-16 05:43:21 3751 Cells/uL F 2000.0-8800.0 Leukocytes [#/volume] in Blood by Automated count 2025-01-16 05:43:21 6.1 x 10^3 cells/uL F 4.0-11.0 Lymphocytes [#/volume] in Blood by Automated count 2025-01-16 05:43:21 1351 Cells/uL F 620.0-3660.0 MineralBone Disorder Description Draw Date Result/Unit Status Ref Range Result Comments 25-Hydroxyvitamin D3+25-Hydroxyvitamin D2 [Mass/volume] in Serum or Plasma 2025-04-17 02:12:43 34.1 ng/mL F 30.0-100.0 CA CORRECTED 2025-04-16 18:30:25 9.1 mg/dL F CA*PO4 CORRCTD 2025-04-16 18:26:50 32.8 Calc F 21.0-53.0 CA/PHOS PRODUCT 2025-04-16 18:26:50 31.3 Calc F 21.0-53.0 Parathyrin.intact [Mass/volume] in Serum or Plasma 2025-04-16 18:26:25 188 pg/mL F 18.0-80.0 Calcium [Mass/volume] in Serum or Plasma 2025-04-16 18:25:07 8.7 mg/dL F 8.7-10.4 Alkaline phosphatase [Enzymatic activity/volume] in Serum or Plasma 2025-04-16 16:16:25 120 U/L F 46.0-116.0 Phosphate [Mass/volume] in Serum or Plasma 2025-04-16 16:16:25 3.6 mg/dL F 2.4-5.1 Parathyrin.intact [Mass/volume] in Serum or Plasma 2025-04-15 13:38:17 143 pg/mL F 18.0-80.0 CA CORRECTED 2025-04-15 09:53:37 8.9 mg/dL F CA/PHOS PRODUCT 2025-04-15 09:50:17 32.3 Calc F 21.0-53.0 CA*PO4 CORRCTD 2025-04-15 09:50:17 33.8 Calc F 21.0-53.0 Calcium [Mass/volume] in Serum or Plasma 2025-04-15 08:27:29 8.5 mg/dL F 8.7-10.4 Phosphate [Mass/volume] in Serum or Plasma 2025-04-15 04:52:20 3.8 mg/dL F 2.4-5.1 CA CORRECTED 2025-03-28 00:42:58 8.9 mg/dL F CA*PO4 CORRCTD 2025-03-28 00:40:54 31.2 Calc F 21.0-53.0 CA/PHOS PRODUCT 2025-03-28 00:40:54 29.8 Calc F 21.0-53.0 Calcium [Mass/volume] in Serum or Plasma 2025-03-28 00:33:31 8.5 mg/dL F 8.7-10.4 Parathyrin.intact [Mass/volume] in Serum or Plasma 2025-03-27 22:22:18 211 pg/mL F 18.0-80.0 Phosphate [Mass/volume] in Serum or Plasma 2025-03-27 21:48:20 3.5 mg/dL F 2.4-5.1 Alkaline phosphatase [Enzymatic activity/volume] in Serum or Plasma 2025-03-27 21:48:20 131 U/L F 46.0-116.0 CA CORRECTED 2025-02-19 23:46:45 8.8 mg/dL F CA/PHOS PRODUCT 2025-02-19 23:42:23 32.7 Calc F 21.0-53.0 CA*PO4 CORRCTD 2025-02-19 23:42:23 33.6 Calc F 21.0-53.0 Calcium [Mass/volume] in Serum or Plasma 2025-02-19 23:37:41 8.6 mg/dL F 8.7-10.4 Parathyrin.intact [Mass/volume] in Serum or Plasma 2025-02-19 13:53:23 188 pg/mL F 18.0-80.0 Phosphate [Mass/volume] in Serum or Plasma 2025-02-19 13:00:20 3.8 mg/dL F 2.4-5.1 Alkaline phosphatase [Enzymatic activity/volume] in Serum or Plasma 2025-02-19 13:00:18 97 U/L F 46.0-116.0 CA CORRECTED 2025-01-16 14:27:24 8.9 mg/dL F CA/PHOS PRODUCT 2025-01-16 14:24:43 35.7 Calc F 21.0-53.0 CA*PO4 CORRCTD 2025-01-16 14:24:43 36.3 Calc F 21.0-53.0 Calcium [Mass/volume] in Serum or Plasma 2025-01-16 07:29:53 8.7 mg/dL F 8.7-10.4 Parathyrin.intact [Mass/volume] in Serum or Plasma 2025-01-16 02:42:24 292 pg/mL F 18.0-80.0 Phosphate [Mass/volume] in Serum or Plasma 2025-01-15 19:04:28 4.1 mg/dL F 2.4-5.1 Alkaline phosphatase [Enzymatic activity/volume] in Serum or Plasma 2025-01-15 19:04:28 108 U/L F 46.0-116.0 Nutrition Description Draw Date Result/Unit Status Ref Range Result Comments Cobalamin (Vitamin B12) [Mass/volume] in Serum or Plasma 2025-04-17 02:12:45 463 pg/mL F 211.0-911.0 Potassium [Moles/volume] in Serum or Plasma 2025-04-16 18:25:07 4.4 mEq/L F 3.5-5.1 CHOL/HDL RATIO 2025-04-16 16:17:07 2.2 Calc F 3.3-5.0 A/G RATIO 2025-04-16 16:17:07 0.9 Calc F 1.0-2.5 LDL-CHOLESTEROL 2025-04-16 16:17:07 25 mg/dL F 60.0-130.0 GLOBULIN 2025-04-16 16:17:07 3.8 g/dL F 0.9-5.0 VLDL-CHOL(CALC) 2025-04-16 16:17:07 13 mg/dL F 0.0-29.0 Cholesterol [Mass/volume] in Serum or Plasma 2025-04-16 16:16:25 71 mg/dL F 0.0-199.0 Bicarbonate [Moles/volume] in Serum or Plasma 2025-04-16 16:16:25 30 mEq/L F 20.0-31.0 Lactate dehydrogenase [Enzymatic activity/volume] in Serum or Plasma 2025-04-16 16:16:25 200 U/L F 120.0-246.0 Cholesterol in HDL [Mass/volume] in Serum or Plasma 2025-04-16 16:16:25 33 mg/dL F 40.0-60.0 Protein [Mass/volume] in Serum or Plasma 2025-04-16 16:16:25 63 mg/dL F 0.0-149.0 Albumin [Mass/volume] in Serum or Plasma by Bromocresol green (BCG) dye binding method 2025-04-16 16:16:25 3.5 g/dL F 3.2-4.8 Protein [Mass/volume] in Serum or Plasma 2025-04-16 16:16:25 7.3 g/dL F 5.7-8.2 Potassium [Moles/volume] in Serum or Plasma 2025-04-15 08:27:28 4.7 mEq/L F 3.5-5.1 Albumin [Mass/volume] in Serum or Plasma by Bromocresol green (BCG) dye binding method 2025-04-15 04:52:20 3.5 g/dL F 3.2-4.8 Bicarbonate [Moles/volume] in Serum or Plasma 2025-04-15 04:52:20 29 mEq/L F 20.0-31.0 Potassium [Moles/volume] in Serum or Plasma 2025-03-28 00:33:31 4.7 mEq/L F 3.5-5.1 Folate [Mass/volume] in Serum or Plasma 2025-03-28 00:20:08 8 ng/mL F See_Comment [Automated [employer]] The system which generated this result transmitted reference range: -5.5. The reference range was not used to interpret this result as normal/abnormal. GLOBULIN 2025-03-27 21:49:21 3.5 g/dL F 0.9-5.0 A/G RATIO 2025-03-27 21:49:21 1 Calc F 1.0-2.5 Lactate dehydrogenase [Enzymatic activity/volume] in Serum or Plasma 2025-03-27 21:48:20 232 U/L F 120.0-246.0 Bicarbonate [Moles/volume] in Serum or Plasma 2025-03-27 21:48:20 27 mEq/L F 20.0-31.0 Albumin [Mass/volume] in Serum or Plasma by Bromocresol green (BCG) dye binding method 2025-03-27 21:48:20 3.5 g/dL F 3.2-4.8 Protein [Mass/volume] in Serum or Plasma 2025-03-27 21:48:20 7 g/dL F 5.7-8.2 Potassium [Moles/volume] in Serum or Plasma 2025-02-19 23:37:41 4.3 mEq/L F 3.5-5.1 A/G RATIO 2025-02-19 13:01:04 1.2 Calc F 1.0-2.5 GLOBULIN 2025-02-19 13:01:04 3 g/dL F 0.9-5.0 Lactate dehydrogenase [Enzymatic activity/volume] in Serum or Plasma 2025-02-19 13:00:20 199 U/L F 120.0-246.0 Protein [Mass/volume] in Serum or Plasma 2025-02-19 13:00:20 6.7 g/dL F 5.7-8.2 Glucose [Mass/volume] in Serum or Plasma 2025-02-19 13:00:20 182 mg/dL F 74.0-106.0 Bicarbonate [Moles/volume] in Serum or Plasma 2025-02-19 13:00:18 27 mEq/L F 20.0-31.0 Albumin [Mass/volume] in Serum or Plasma by Bromocresol green (BCG) dye binding method 2025-02-19 13:00:18 3.7 g/dL F 3.2-4.8 GLOBULIN 2025-01-16 14:24:43 3.1 g/dL F 0.9-5.0 A/G RATIO 2025-01-16 14:24:43 1.2 Calc F 1.0-2.5 Potassium [Moles/volume] in Serum or Plasma 2025-01-16 07:29:53 4.7 mEq/L F 3.5-5.1 Lactate dehydrogenase [Enzymatic activity/volume] in Serum or Plasma 2025-01-15 19:04:28 207 U/L F 120.0-246.0 Bicarbonate [Moles/volume] in Serum or Plasma 2025-01-15 19:04:28 29 mEq/L F 20.0-31.0 Albumin [Mass/volume] in Serum or Plasma by Bromocresol green (BCG) dye binding method 2025-01-15 19:04:28 3.8 g/dL F 3.2-4.8 Protein [Mass/volume] in Serum or Plasma 2025-01-15 19:04:28 6.9 g/dL F 5.7-8.2 Glucose [Mass/volume] in Serum or Plasma 2025-01-15 19:04:28 95 mg/dL F 74.0-106.0 Encounters No encounter information to report Immunizations Ordered Immunization Name Filled Immunization Name Date Status Comments Refusal Reason Influenza, high-dose, quadrivalent, PF 2025-02-27 17:09:55 Pneumococcal conjugate PCV20, polysaccharide [id number] conjugate, adjuvant, PF 2024-09-10 14:54:44 Influenza, high-dose, quadrivalent, PF 2024-06-27 18:42:34 TST-PPD intradermal 2024-06-09 19:38:14 TST-PPD intradermal 2023-06-12 12:49:20 Hep B, adult 2023-01-23 15:09:34 Hep B, adult 2022-09-30 13:00:00 Hep B, adult 2022-08-26 13:03:33 Hep B, adult 2022-07-25 19:03:04 TST-PPD intradermal 2022-06-15 18:09:00 TST-PPD intradermal 2022-06-01 19:15:00 Influenza Vaccination 2022-04-18 06:00:00 Pneumococcal Vaccination 2018-05-20 06:00:00 Pneumococcal Vaccination 2013-05-19 06:00:00 Plan of Treatment Planned Activity Provider Planned Date Details Commen ts Diagnostic Test Pending [facility] 2025-04-05 07:35:47 Reticulocytes/100 erythrocytes in Blood by Automated count [code = 82813-6] Diagnostic Test Pending SCHMITT NICO 2025-03-25 06:00:00 Creatinine [Mass/volume] in Serum or Plasma [code = 2160-0] Diagnostic Test Pending SCHMITT NICO 2025-04-06 06:00:00 Parathyrin.intact [Mass/volume] in Serum or Plasma [code = 2731-8] Diagnostic Test Pending SCHMITT NICO 2025-04-05 07:35:[address] [code = 2265] Diagnostic Test Pending SCHMITT NICO 2025-03-31 07:38:10 Hemoglobin [Mass/volume] in Blood [code = 718-7] Diagnostic Test Pending SCHMITT NICO 2025-03-28 16:02:04 Alanine aminotransferase [Enzymatic activity/volume] in Serum or Plasma [code = 1742-6] Diagnostic Test Pending SCHMITT NICO 2025-03-25 06:00:00 Sodium [Moles/volume] in Serum or Plasma [code = 2951-2] Diagnostic Test Pending [facility]ITT NICO 2025-03-25 06:00:00 Albumin [Mass/volume] in Serum or Plasma by Bromocresol green (BCG) dye binding method [code = 79568-6] Diagnostic Test Pending [facility]MITT NICO 2025-03-25 06:00:00 Bicarbonate [Moles/volume] in Serum or Plasma [code = 1963-8] Diagnostic Test Pending SCHMITT NICO 2025-03-25 06:00:00 Aspartate aminotransferase [Enzymatic activity/volume] in Serum or Plasma [code = 1920-8] Diagnostic Test Pending OSKAR WALSH 2025-03-25 06:00:00 Aluminum [Mass/volume] in Serum or Plasma [code = 5574-9] Diagnostic Test Pending OSKAR WALSH 2025-03-25 06:00:00 Folate [Mass/volume] in Serum or Plasma [code = 2284-8] Diagnostic Test Pending OSKAR WALSH 2025-03-25 06:00:00 Potassium [Moles/volume] in Serum or Plasma [code = 2823-3] Future Scheduled Test OSKAR WALSH 2025-05-07 06:00:00 Ferritin [Mass/volume] in Serum or Plasma [code = 2276-4] Future Scheduled Test Dimas Rios 2025-06-07 06:00:00 Ferritin [Mass/volume] in Serum or Plasma [code = 2276-4] Future Scheduled Test Jame Ramirezcell 2025-05-07 06:00:00 Alanine aminotransferase [Enzymatic activity/volume] in Serum or Plasma [code = 1742-6] Diagnostic Test Pending Jame Youssefantwan Julia 2025-04-17 13:05:33 Hemoglobin [Mass/volume] in Blood [code = 718-7] Diagnostic Test Pending Jame Ramirezcell 2025-04-15 15:58:55 Cobalamin (Vitamin B12) [Mass/volume] in Serum or Plasma [code = 2132-9] Diagnostic Test Pending Jame Ramirezcell 2025-04-15 15:58:29 Potassium [Moles/volume] in Serum or Plasma [code = 2823-3] Diagnostic Test Pending Jame Dumont 2025-04-15 15:59:01 25-Hydroxyvitamin D3+25-Hydroxyvitamin D2 [Mass/volume] in Serum or Plasma [code = 10541-4] Future Scheduled Test Dimas Rios 2025-05-07 06:00:00 Parathyrin.intact [Mass/volume] in Serum or Plasma [code = 2731-8] Diagnostic Test Pending Jame Ramirezcell 2025-04-15 15:57:43 Hemoglobin A1c/Hemoglobin.total in Blood [code = 4548-4] Diagnostic Test Pending Jame Youssefantwan Dumont 2025-04-15 15:56:32 Creatinine [Mass/volume] in Serum or Plasma [code = 2160-0] Diagnostic Test Pending Jame Dumont 2025-04-15 15:58:49 Sodium [Moles/volume] in Serum or Plasma [code = 2951-2] Diagnostic Test Pending Jame Dumont 2025-04-15 15:56:16 Aluminum [Mass/volume] in Serum or Plasma [code = 5574-9] Diagnostic Test Pending Jame Dumont [facility] [place] 2025-04-16 17:44:16 In-Center Hemodialysis Treatment [code = QPV714] Diagnostic Test Pending OSKAR WALSH [facility] 2025-03-26 06:00:00 In-Center Hemodialysis Treatment [code = FDD512] Medication Jame Dumont 2025-04-27 06:00:00 Mircera [code = 9395720]
== END 2025-04-20 17:23 | disposition home or self-care (01) ==
PROVIDERS: Emergency Provider Emergency Medicine; PCP Family Medicine
DX: E11.649 Type 2 diabetes mellitus with hypoglycemia without coma (principal); Z79.4 Long term (current) use of insulin; E11.621 Type 2 diabetes mellitus with foot ulcer; L97.419 Non-pressure chronic ulcer of right heel and midfoot with unspecified severity; I48.91 Unspecified atrial fibrillation; Z86.718 Personal history of other venous thrombosis and embolism; Z79.01 Long term (current) use of anticoagulants; J44.89 Other specified chronic obstructive pulmonary disease; I69.920 Aphasia following unspecified cerebrovascular disease; I69.951 Hemiplegia and hemiparesis following unspecified cerebrovascular disease affecting right dominant side; N18.6 End stage renal disease; Z99.2 Dependence on renal dialysis; G47.30 Sleep apnea, unspecified; E03.9 Hypothyroidism, unspecified; F41.9 Anxiety disorder, unspecified; I50.9 Heart failure, unspecified; F32.A Depression, unspecified
CPT/HCPCS: 36415; 80053; 82948; 83735; 85025; 99283

== ENCOUNTER 2025-04-23 13:43 | Inpatient (IN) | payer MEDICARE, SELFPAY ==
--- OUTSIDE RECORDS SUMMARY | 2022-05-13 15:00 | XMS_ITS | Encounter Summary ---
Author Organization [facility] Address [address] [place] [address] Care Team Providers Care Bicycle Ii Assembler Name Role Phone Rikki Amezquita MD Primary Care Provider [phone] Encounter Details Date Type Department Care Team (Latest Contact Info) Description 05/13/2022 3:00 PM OPEN HEARTH STOCKYARD SUPERVISOR Hospital Encounter [address] [address] Allisno Patrick MD Select Direct Social History Tobacco Use Types Packs/Day Years Used Date Smoking Tobacco: Former Cigarettes 1.5 23 1 965 - 1987 Smokeless Tobacco: Never Comments:Quit 30 years ago Alcohol Use Standard Drinks/Week Comments Not Currently 0 (1 standard drink = 0.6 oz pur e alcohol) occ AUDIT-C Answer Date Recorded Q1: How often do you have a drink containing alcohol? Monthly or less 10/05/2022 Q2: How many drinks containi ng alcohol do you have on a typical day when you are drinking? Patient does not drink Q3: How often do you have si x or more drinks on one occasion? Never 10/05/2022 Comments Unknown Sex and Gender Information Value Date Recorded Sex Assigned at Not on file Legal Sex Female 7:55 AM CDT Gender Identity Not on file Sexual Orientation Not on file documented as of this encounter Plan of Treatment Upcoming Encounters Date Type Department Care Team (Late st Contact Info) Description 04/28/2025 1:00 PM OPEN HEARTH STOCKYARD SUPERVISOR Appointment [facility] Imaging Services - CT Scan [address] [place] [address] [place] [address] [facility] [address] [place] [id number] 06/23/2025 2:45 PM OPEN HEARTH STOCKYARD SUPERVISOR Appointment [facility] Vascular Services [address] [facility], [address] [place] [address] documented as of this encounter Visit Diagnoses Not on filedocumented in this encounter Additional Health Concerns Infection Onset Date Last Indicated Resolved Time CDIFF Under Investigation 05/23/2022 05/23/2022 8:26 AM OPEN HEARTH STOCKYARD SUPERVISOR COVID-19 Under Investigation 05/27/2022 05/27/2022 05/27/2022 11:54 PM OPEN HEARTH STOCKYARD SUPERVISOR documented as of this encounter Care Teams Bicycle Ii Assembler Relationship Specialty Start Date End Date Rikki Amezquita MD [address] [place] [address] PCP - General 11/28/21 documented as of this encounter
--- NOTE | ~2025-04-23 | CT_ITS ---
EXAMINATION: CT cervical spine wo con COMPARISON: None HISTORY: fall, unsure loc TECHNIQUE: Axial images were obtained through the spine without IV contrast. Coronal, sagittal reconstruction images were obtained from the axial views. CT scan performed using dose optimization techniques including the following automated exposure control; adjustment of mA and/or kV; use of iterative reconstruction technique. Automatic exposure control was used to reduce radiation dose. Permanent radiation dose record is archived to PACS. FINDINGS: The vertebral heights are intact. No fracture or subluxation. Severe loss of disc height at 4 5 C5-6 and C6-7 with moderate to severe canal and foraminal stenosis. Soft tissues unremarkable. Impression: No acute abnormality. Reviewed, dictated and finalized at location P. ING MACHINE OPERATOR Impression: No acute abnormality.
--- NOTE | ~2025-04-23 | XR_ITS ---
EXAMINATION: XR tibia fibula RT 2V DATE: 04/23/2025 14:18 INDICATION: Right lower leg wound TECHNIQUE: AP and lateral views of the right tibia and fibula were obtained. COMPARISON: None. FINDINGS: Bone alignment is normal. No fracture. No cortical erosions or periosteal reaction. 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 Additional mild osteoarthritis at the right ankle and talonavicular joints. No evident knee or ankle joint effusion. There is some subcutaneous edema about the right calf. There are also vascular calcifications at the right popliteal artery and the arteries of the proximal to mid right calf. IMPRESSION: 1. No cortical erosions or periosteal reaction to suggest osteitis. No other acute osseous abnormality. 2. 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 Reviewed, dictated and finalized at location A. LABORER IMPRESSION: 1. No cortical erosions or periosteal reaction to suggest osteitis. No other ac liz osseous abnormality. 2. Polyarticular osteoarthritis, moderate to severe in the medial compartment o f the right knee.
--- NOTE | ~2025-04-23 | US_ITS ---
EXAMINATION: US abdomen limited DATE: 04/28/2025 11:34 INDICATION: Transaminitis TECHNIQUE: Multiple grayscale and Doppler ultrasound images of the abdomen were obtained. COMPARISON: Ultrasound and CT dated 04/12/2022 FINDINGS: The pancreatic head and body are normal in appearance. The pancreatic tail is not visualized. Visualized proximal to mid inferior vena cava is normal. Liver has normal echogenicity and contour, with a smooth surface. No liver lesion identified. No intrahepatic biliary duct dilation suspected. Portal venous flow was seen in the hepatopetal, normal direction. There is increased portal venous pulsatility which can be seen with right heart failure, tricuspid regurgitation or other cause of elevated right heart pressures. Small amount of perihepatic ascites. Status post cholecystectomy. Common bile duct measures 3 mm diameter which is normal. Visualized portion of the right kidney demonstrates normal c ontour and echogenicity with no hydronephrosis. IMPRESSION: 1. Small amount of perihepatic ascites. 2. Normal directional flow in the main portal vein but with increased pulsatility which can be seen with right heart failure, tricuspid regurgitation or other cause of elevated right heart pressures. Reviewed, dictated and finalized at location A. RANCE MANAGER IMPRESSION: 1. Small amount of perihepatic ascites. 2. Normal directional flow in the main portal vein but with increased pulsatili ty which can be seen with right heart failure, tricuspid regurgitation or other cause of elevated right heart pressures.
--- NOTE | ~2025-04-23 | CT_ITS ---
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 Technique: Axial images obtained of the brain without contrast. One or more of the following dose reduction techniques were used: automated exposure control, adjustment of the mA and/or kV according to patient size, use of iterative reconstruction technique. Findings: There is a large remote left MCA infarct. Remote right basal ganglia and cerebellar lacunar infarcts. No midline shift or mass effect. No extra-axial fluid collections. Mastoid air cells unremarkable. Sinuses and orbits unremarkable. No acute fracture. No significant facial or scalp soft tissue swelling evident. No radiopaque foreign body is seen. Impression: 1.No acute intracranial abnormality. Reviewed, dictated and finalized at location P. RAL SALES MANAGER Impression: 1.No acute intracranial abnormality.
--- NOTE | ~2025-04-23 | XR_ITS ---
Examination: XR chest 1V Clinical History: ams Comparison: 03/08/2025 Technique: Portable AP Findings: Unchanged cardiomegaly. Persistent linear atelectasis and/or scarring right midlung. Mildly increased interstitial markings. No acute bony abnormality. IMPRESSION: 1. Probable mild interstitial pulmonary edema with persistent right midlung atelectasis and/or scarring. 2. No significant change from prior. Reviewed, dictated and finalized at location R. RER TANBARK IMPRESSION: 1. Probable mild interstitial pulmonary edema with persistent right midlung at electasis and/or scarring. 2. No significant change from prior.
--- NOTE | ~2025-04-23 | CT_ITS ---
EXAMINATION: CTA [facility] DATE: 04/25/2025 09:27 INDICATION: Chronic foot wounds. Peripheral arterial occlusive disease. TECHNIQUE: Computed tomographic angiography (CTA) of the lower abdomen, pelvis, and both lower extremities was performed with 100 mL Omnipaque 350 intravenous contrast. Automated exposure control and iterative reconstruction technique were employed. The dose-length product was mGy-cm. COMPARISON: 03/08/2025 FINDINGS: ABDOMINAL AORTA AND PELVIC VASCULATURE: Atherosclerotic calcification without hemodynamically significant stenosis at the visualized infrarenal abdominal aorta and the bilateral common, external and internal iliac arteries. RIGHT LOWER EXTREMITY: Extensive vascular calcifications throughout the arteries of the right lower limb. There is mild, <50% stenosis at the right common femoral, superficial femoral and profunda femoral arteries. Multifocal disease in the right popliteal artery with moderate 50-70% stenosis along the popliteal canal and severe >70% stenosis at the popliteal fossa just above level of the knee joint line. There is moderate stenosis at the proximal right anterior tibial artery and multifocal mild stenosis along the peroneal artery. There is complete occlusion of the right posterior tibial artery at the level of the mid calf. Two-vessel runoff in the anterior tibial and peroneal arteries below level of the right ankle. There is reconstitution of the distal right posterior tibial artery via collaterals at the level of the ankle joint. Skin ulceration posterior to the distal calf with small amount of soft tissue gas along the medial and lateral margins of the Achilles tendon. No abscess. Moderate fatty atrophy of the medial head of the right gastrocnemius muscle. Tricompartmental osteoarthritis at the right knee, severe in the medial compartment. LEFT LOWER EXTREMITY: Extensive vascular calcification throughout the arteries of the left lower limb. There is mild stenosis at the common femoral and superficial femoral arteries. Relatively symmetric pattern of multifocal mild and moderate stenosis along the left popliteal artery at the popliteal canal with more severe popliteal artery stenosis at the popliteal fossa just above level of the knee joint. There is a moderate stenosis at the origin of the left gastrocnemius artery. There appears be a high-grade stenosis if not complete occlusion of the tibioperoneal trunk and proximal anterior tibial artery. The anterior tibial, posterior tibial and peroneal arteries. Reconstituted via collaterals in the proximal calf. There is an additional occlusion of the posterior tibial artery at the distal calf. There is 2 vessel runoff below the left ankle and the anterior tibial artery and in the posterior tibial artery which becomes atretic at the level of the ankle joint. Mild to moderate fatty atrophy of the left gastrocnemius and soleus muscles. ADDITIONAL FINDINGS: Small amount of ascites in the visualized lower abdomen and pelvis. No abscess or free intraperineal gas. There are few scattered clonic diverticula without adjacent from trace stranding to suggest diverticulitis. Normal appendix. Couple likely dropped clips in the right paracolic gutter. Bladder, uterus and bilateral adnexa are unremarkable. Severe lower lumbar spondylosis. Again seen is subtle sclerosis of the left pubic body and medial aspect of the superior and inferior pubic rami which given 2 years of stability is most likely benign. There appears be subtle asymmetric expansion of the bone and cortical thickening suggestive of Paget's disease. Shotty bilateral inguinal lymph nodes with slight ly more prominent right inguinal lymph node measuring up to 1.7 cm in maximal short axis diameter. No other pathologically enlarged pelvic lymphadenopathy. IMPRESSION: 1. Peripheral vascular disease with relatively symmetric severe stenoses at the bilateral popliteal arteries and occlusions of the bilateral distal posterior tibial arteries. There are also appears be a segment occlusion of the left tibioperoneal trunk and proximal aspect of the anterior tibial artery which reconstitutes in the proximal calf via collaterals. 2. Small amount of ascites in the pelvis and visualized lower abdomen. 3. Shotty bilateral inguinal lymph nodes with mildly enlarged likely reactive right inguinal lymph node. Reviewed, dictated and finalized at location A. STITCHER IMPRESSION: 1. Peripheral vascular disease with relatively symmetric severe stenoses at th e bilateral popliteal arteries and occlusions of the bilateral distal posterior tibial arteries. There are also appears be a segment occlusion of the left tib ioperoneal trunk and proximal aspect of the anterior tibial artery which recons titutes in the proximal calf via collaterals. 2. Small amount of ascites in the pelvis and visualized lower abdomen. 3. Shotty bilateral inguinal lymph nodes with mildly enlarged likely reactive r ight inguinal lymph node.
[2025-04-23 13:43] VITALS: BP 115/49; PULSE 53; RESP 16; TEMP 36.8; O2SAT 100
--- NOTE | 2025-04-23 13:48 | ECG_ITS ---
Test Date: 2025-04-23 14:58:19 Measurements Intervals [place] Rate: 50 P: -11 ID: [id number] QRS: 12 QRSD: 121 T: 89 QT: 477 QTc: 436 Interpretive Statements SINUS BRADYCARDIA INTRAVENTRICULAR CONDUCTION DELAY POSSIBLE ANTERIOR MYOCARDIAL INFARCTION , PROBABLY OLD BORDERLINE ST-T WAVE ABNORMALITY- INF/HIGH LAT LEADS BORDERLINE ECG Compared to ECG 03/07/2025 21:21:46 NO SIGNIFICANT CHANGE Electronically Signed On 04-23-2025 15:12:18 WEB PAGE DESIGNER by Brannon Hatfield D.O.
--- NOTE | 2025-04-23 13:54 | ED.FALL ---
HPI - Fall General Chief Complaint: Fall Stated Complaint: fall Time Seen by Provider: 04/23/25 13:49 Source: family and EMS Mode of arrival: EMS Limitations: other (expressive aphasia from prior CVA) History of Present Illness HPI Narrative: This is a 74-year-old female with history of ESRD on dialysis, AFib, COPD, CVA with expressive aphasia who presents to the ED for a fall. Per EMS, patient had an unwitnessed fall last night and was down for unknown period of time until her found her this morning. History is limited due to the patient's significant expressive aphasia. Related Data Home Medications ?Medication ?Instructions ?Recorded ?Confirmed ?Last Taken ?Type insulin aspart U-100 100 unit/mL See Rx Instructions .Route .COMPLEX 05/20/24 04/16/25 Unknown History (3 mL) subcutaneous pen (Novolog FlexPen U-100 Insulin aspart) amiodarone 200 mg tablet 200 mg PO QAM 09/02/24 04/16/25 03/15/25 History apixaban 2.5 mg tablet (Eliquis) 2.5 mg PO BID 03/08/25 04/16/25 03/16/25 History calcium acetate 667 mg tablet 667 mg PO DAILY 03/16/25 04/16/25 Unknown History levothyroxine 200 mcg capsule 200 mcg PO DAILY 03/16/25 04/16/25 03/16/25 History ropinirole 0.5 mg tablet 0.5 mg PO BID 03/16/25 04/16/25 Unknown History Allergies Allergy/AdvReac Type Severity Reaction Status Date / Time nickel Allergy Intermediate hives and Verified 04/16/25 14:48 itchy rash Sulfa (Sulfonamide Allergy Intermediate Urticaria Verified 04/16/25 14:48 Antibiotics) and hives Calcium Channel Blocking AdvReac Intermediate STATES Verified 04/16/25 14:48 Agents-Dih CANNOT TAKE SINCE SHE HAS ASTHMA diphenhydramine AdvReac Intermediate restless Verified 04/16/25 14:48 legs nifedipine AdvReac Intermediate palpitation Verified 04/16/25 14:48 s Ouspnvn-IJW-JvZ Reductase AdvReac Intermediate muscle Verified 04/16/25 14:48 Inhibitor (Cgeyvcl-Pfn-Zpu cramps Reductase Inhibitor) CALCIUMCHANNEL Allergy Unknown SEE COMMIT Uncoded 04/20/25 11:03 Review of Systems Review of Systems: ROS unobtainable: Yes other (Severe expressive aphasia) [facility] Past Medical History Medical History Femoral artery stenosis, right 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 Paroxysmal atrial fibrillation Bilateral primary osteoarthritis of knee Renal osteodystrophy DVT of lower extremity (deep venous thrombosis) Asthma-COPD overlap syndrome Left-sided cerebrovascular accident (CVA) (01/04/24) With residual left-sided visual neglect, profound expressive aphasia and right-sided hemiplegia ESRD on hemodialysis (02/17/22) Chronic anticoagulation Obstructive sleep apnea Hypothyroidism Insulin dependent type 2 diabetes mellitus Generalized anxiety disorder Chronic obstructive pulmonary disease Chronic diastolic (congestive) heart failure Coronary artery disease involving [place] heart without angina pectoris Depression GERD without esophagitis Peripheral polyneuropathy Surgical History Surgical History History of tracheostomy (04/24/22) With subsequent removal History of cataract extraction History of tonsillectomy History of cholecystectomy History of gastrostomy tube placement and removal Family History Family History Father Hypertension Family history of coronary artery disease Sibling Hypertension Family history of coronary artery disease Mother Cerebrovascular accident Other Asthma Depression Family history of Alzheimer's disease Family history of arthritis Family history of cardiovascular disease Family history of lymphoma Family history of obesity Family history of seizure disorder Social History Social History Social History: Surrogate medical decision maker: Anjum (spouse) or Gwen (daughter) Kyra. Code status: Do not intubate Smoking packs per day: 1 Smoking cigarettes per day: 20.0 Years smoked: 22 Smoking pack-years: 22.00 Smoking status: Former smoker Tobacco type: cigarettes Second hand tobacco smoke exposure: No Smoking end date: 05/07/84 Alcohol intake: never Alcohol use details: special occasions Substance use: never Substance use type: does not use Last use: 01/05/23 Lack of Transportation: No Lack of Food: Never True Current Housing: I Have Housing Concerned About Future Housing: No Difficulty Paying Gas/Electric Bills: No Difficulty Paying for Meds: No Currently Unemployed: No Education: High School Diploma/GED Difficulty w/ Childcare or Family Care: No Living arrangements: with family Occupation/Education: retired Spiritual care concerns: No Exam Narrative: APPEARANCE: No acute distress, nontoxic, resting in bed EYES: EOMI HEENT: Normocephalic, atraumatic, OMM RESPIRATORY: No respiratory distress Clear to auscultation bilaterally with no rhonchi wheezing or rales. CARDIOVASCULAR: Regular rate and rhythm without murmurs rubs or gallops. ABDOMINAL: Soft, nontender, nondistended, no rebound or guarding MUSCULOSKELETAl: Moves all extremities. No obvious deformities. No clubbing, cyanosis or edema. Fistula to the left upper extremity with palpable thrill. NEURO: Awake and alert. Severe expressive aphasia. SKIN:: Warm, dry. No rashes lesions or abrasions PSYCHIATRIC: Normal affect/mood, Course Vital Signs Vital signs: Vital Signs Temperature 98.2 F 04/23/25 13:43 Pulse Rate 53 L 04/23/25 13:43 Respiratory Rate 16 04/23/25 13:43 Blood Pressure 115/49 L 04/23/25 13:43 Pulse Oximetry 100 04/23/25 13:43 Oxygen Delivery Room Air 04/23/25 13:43 Temperature 98.2 F 04/23/25 13:43 Pulse Rate 53 L 04/23/25 13:43 Respiratory Rate 16 04/23/25 13:43 Blood Pressure 115/49 L 04/23/25 13:43 Pulse Oximetry 100 04/23/25 13:43 Oxygen Delivery Room Air 04/23/25 13:43 MDM MDM Narrative Medical decision making narrative: 74-year-old female Presenting for unwitnessed fall. On initial evaluation patient was in no acute distress afebrile, hemodynamic stable. Differentials include but are not limited to: CVA, TIA, ICH, meningitis, UTI, cancer, drug intoxication, hypoglycemia, electrolyte abnormality, fracture, contusion, rhabdomyolysis Notable exam findings: No obvious deformities, heart and lungs clear, fistula to the left upper extremity with palpable thrill I personally reviewed the patient's lab result. Notable lab findings: Leukocytosis at 10.9, hemoglobin 7.9 which is around her baseline. CMP consistent with her ESRD. UA was rather turbid appearing, unable to determine bacteria, suspect an infection. CT head, CT C-spine showed no acute process. Chest x-ray showed interstitial pulmonary edema. Tibia/fibula x-ray showed no evidence of osteomyelitis. I personally reviewed the patient's EKGs: Sinus bradycardia rate of 50, normal axis, intraventricular conduction delay, poor R-wave progression and no acute ST or T-wave changes Patient was started on Rocephin for probable UTI. She has had up to 5 falls in the past week per the . Discuss that given the significant number of falls, she would benefit from admission for PT/OT eval and possible rehab versus [place] [facility] placement. Patient's was agreeable to this plan. Case was discussed with hospitalist and will admit the patient. Differential Diagnosis Differential Diagnosis: CVA, TIA, ICH, meningitis, UTI, cancer, drug intoxication, hypoglycemia, electrolyte abnormality, fracture, contusion Lab Data 04/23/25 14:30 04/23/25 14:30 Labs: Lab Results 04/23/25 04/23/25 04/23/25 Range/Units 14:30 16:20 17:16 WBC 10.9 H (4.5-10.0) K/mm3 RBC 3.01 L (4.2-5.4) M/mm3 Hgb 7.9 L (12.0-15.0) g/dL Hct 26.7 L (37.0-47.0) % MCV 88.7 (80-100) fl MCH 26.2 (26-34) pg MCHC 29.6 L (32-36) g/dl RDW 19.2 H (11.5-14.5) % Plt Count 303 (150-375) k/mm3 MPV 9.6 (7.4-10.4) fl Immature Gran % (Auto) 0.7 H (0-0.5) % Neut % (Auto) 79.0 H (45.5-73.1) % Lymph % (Auto) 9.1 L (18.3-44.2) % [place] % (Auto) 10.4 H (2.6-8.5) % Eos % (Auto) 0.3 (0-4.4) % Baso % (Auto) 0.5 (0.2-1.2) % Lymph # (Auto) 0.99 (0.9-3.2) K/mm3 [place] # (Auto) 1.1 H (0.1-0.6) K/mm3 Eos # (Auto) 0.0 (0-0.3) K/mm3 Baso # (Auto) 0.1 (0.0-0.1) K/mm3 Abs Immat Gran (auto) 0.08 H (0.00-0.031) K/mm3 Absolute Neuts (auto) 8.6 H (1.3-6.7) K/mm3 Absolute Nucleated RBC 0.000 (0.0-0.012) K/mm3 Band Neutrophils % Not Reportable Nucleated RBC % 0.0 (0.0-0.2) % Platelet Estimate Adequate (Adequate) Polychromasia Occasional Hypochromasia 1+ Anisocytosis 1+ Ovalocytes 1+ Schistocytes None seen PT 24.6 H (11.1-14.7) Seconds INR 2.3 Sodium 136 L (137-145) mmol/L Potassium 4.3 (3.4-5.0) mmol/L Chloride 97 L (98-107) mmol/L Carbon Dioxide 29 (22-30) mmol/L Anion Gap 10 (4-12) mmol/L BUN 31 H (7-17) mg/dL Creatinine 5.63 H (0.7-1.0) mg/dL Estim Creat Clear Calc 9 ml/min Estimated GFR 7 L (59 - ) Glucose 139 H (65-110) mg/dL Lactic Acid 2.2 H Pending (0.7-2.0) mmol/L Calcium 8.2 L (8.4-10.2) mg/dL Total Bilirubin 1.1 (0.2-1.3) mg/dL AST 23 (14-36) U/L ALT 17 (6-35) U/L Alkaline Phosphatase 120 (38-126) U/L Total Creatine Kinase 84 (30-135) U/L Total Protein 7.6 (6.3-8.2) g/dL Albumin 3.4 L (3.5-5.1) g/dL Urine Color Other (Yellow) Urine Appearance Turbid H (Clear) Urine pH 7.0 (5.0-9.0) Ur Specific [place] 1.020 (1.001-1.035) Urine Protein 4+ H (Negative) mg/dL Urine Glucose (UA) Negative (Negative) mg/dL Urine Ketones Negative (Negative) mg/dL Ur Blood (Man) 2+ H (Negative) Urine Nitrate Negative (Negative) Urine Bilirubin Negative (Negative) Urine Urobilinogen 0.2 (<2.0) mg/dL Leukocyte Esterase Rfl 2+ H (Negative) ERICK/UL Urine RBC Unable to determine (0-2) /hpf Urine WBC >100 (0-3) /hpf Urine Bacteria Unable to determine (None) /hpf Imaging Data Radiologist's impression: ITS Impressions Head CT 04/23/25 14:01 Impression: 1.No acute intracranial abnormality. Cervical Spine CT 04/23/25 14:05 Impression: No acute abnormality. Chest X-Ray 04/23/25 14:20 IMPRESSION: 1. Probable mild interstitial pulmonary edema with persistent right midlung atelectasis and/or scarring. 2. No significant change from prior. Tibia/Fibula X-Ray 04/23/25 14:20 IMPRESSION: 1. No cortical erosions or periosteal reaction to suggest osteitis. No other acute osseous abnormality. 2. 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 Discharge Plan Discharge Clinical Impression: Acute UTI, Expressive aphasia, Adult failure to thrive Patient Disposition: Still a Patient Condition: Stable Patient Language: Syriac Prescriptions: No Action insulin aspart U-100 [Novolog FlexPen U-100 Insulin] 100 unit/mL (3 mL) insulin pen See Rx Instructions .ROUTE .COMPLEX MDD 60 Rx Instructions: sliding scale 200-249 2u 250-299 3u 300-349 4u 350 greater 6u albuterol sulfate [Ventolin HFA] 90 mcg/actuation HFA aerosol inhaler See Rx Instructions .ROUTE .COMPLEX Qty: 18 6RF Dose Instruction: INHALE 2 PUFFS BY MOUTH 4 TIMES DAILY NEEDED FOR SHORTNESS OF BREATH OR WHEEZING. Rx Instructions: INHALE 2 PUFFS BY MOUTH 4 TIMES DAILY NEEDED FOR SHORTNESS OF BREATH OR WHEEZING. metoprolol succinate 50 mg tablet extended release 24 hr 50 mg PO QAM Qty: 90 0RF montelukast 10 mg tablet 10 mg PO DAILY Qty: 90 3RF insulin glargine [Lantus Solostar U-100 Insulin] 100 unit/mL (3 mL) insulin pen 18 unit subcut QPM Qty: 15 1RF Rx Instructions: INJECT 18 UNITS UNDER THE SKIN AT BEDTIME escitalopram oxalate [Lexapro] 5 mg tablet 5 mg PO DAILY Qty: 90 4RF amiodarone 200 mg tablet 200 mg PO QAM calcium acetate 667 mg tablet 667 mg PO DAILY levothyroxine 200 mcg capsule 200 mcg PO DAILY ropinirole 0.5 mg tablet 0.5 mg PO BID clindamycin HCl [Cleocin HCl] 300 mg capsule 300 mg PO Q6H Qty: 40 0RF Eliquis 2.5 mg tablet 2.5 mg PO BID albuterol sulfate 2.5 mg /3 mL (0.083 %) solution for nebulization 2.5 mg inhalation Q4-6H PRN (Reason: shortness of breath or wheezing) Qty: 90 6RF budesonide-formoterol 160-4.5 mcg/actuation HFA aerosol inhaler 2 puff inhalation Q12H Qty: 10.2 6RF trazodone 50 mg tablet 50 mg PO QHS Qty: 30 5RF atorvastatin [Lipitor] 20 mg tablet 20 mg PO HS Qty: 90 1RF hydralazine 25 mg tablet 25 mg PO TID Qty: 270 0RF isosorbide mononitrate 30 mg tablet extended release 24 hr 30 mg PO DAILY Qty: 90 0RF lorazepam [Ativan] 0.5 mg tablet 0.5 mg PO BID PRN (Reason: anxiety) Qty: 60 0RF tramadol 25 mg tablet 25 mg PO Q12H Qty: 60 0RF Follow-up/Referrals: Rikki Amezquita MD [Primary Care Provider, Family Practice]
[2025-04-23 14:39] LABS: Hematocrit 26.7 % (37.0-47.0); Hemoglobin 7.9 g/dL (12.0-15.0); Immature Granulocyte Percent A 0.7 % (0-0.5); Lymphocytes Absolute Auto 0.99 K/mm3 (0.9-3.2); Mean Corpuscular HGB Conc 29.6 g/dl (32-36); Mean Corpuscular Hemoglobin 26.2 pg (26-34); Mean Corpuscular Volume 88.7 fl (80-100); Nucleated Red Blood Cells Absolute Auto 0.000 K/mm3 (0.0-0.012); Nucleated Red Blood Cells Perc 0.0 % (0.0-0.2); Platelet Count Result 303 k/mm3 (150-375); Red Blood Count 3.01 M/mm3 (4.2-5.4); White Blood Count 10.9 K/mm3 (4.5-10.0)
[2025-04-23 14:49] LABS: INR 2.3; Prothrombin Time 24.6 Seconds (11.1-14.7)
[2025-04-23 14:50] LABS: Alanine Aminotransferase 17 U/L (6-35); Albumin Level 3.4 g/dL (3.5-5.1); Alkaline Phosphatase 120 U/L (38-126); Anion Gap 10 mmol/L (4-12); Aspartate Amino Transferase 23 U/L (14-36); Bilirubin,Total 1.1 mg/dL (0.2-1.3); Blood Urea Nitrogen 31 mg/dL (7-17); Calcium 8.2 mg/dL (8.4-10.2); Carbon Dioxide 29 mmol/L (22-30); Chloride 97 mmol/L (98-107); Creatine Kinase 84 U/L (30-135); Estimated CRCL calculation 9 ml/min; Estimated Glomerular Filt Rate 7; Glucose 139 mg/dL (65-110); Potassium 4.3 mmol/L (3.4-5.0); Sodium 136 mmol/L (137-145); Total Protein 7.6 g/dL (6.3-8.2)
[2025-04-23 14:57] LABS: Anisocytosis 1+; Hypochromasia 1+; Ovalocytes 1+; Schistocytes None Seen
[2025-04-23 15:01] LABS: Polychromasia Occasional
--- OUTSIDE RECORDS SUMMARY | 2025-04-23 15:09 | XMS_ITS | Clinical Summary ---
Author Organization [facility] Address [address] [address] Phone Care Team Providers Care Reception Agent Name Role Phone Rikki Amezquita MD Primary Care Provider [phone] Allergies Active Allergy Reactions Criticality Noted Date [...] ID:Not on file Type:Not on file Address: [place] [id number] Care Teams Reception Agent Relationship Specialty Start Date End Date Rikki Amezquita MD [address] [facility] [address] [facility] [address] [place] [address] PCP - General Internal Medicine 03/07/22
--- OUTSIDE RECORDS SUMMARY | 2025-04-23 15:09 | XMS_ITS | Clinical Summary ---
Author Organization [facility] Address [address] [place] [address] Care Team Providers Care Harbor Tug Captain Name Role Phone Unavailable Primary Care Provider [...] file Medical Devices Not on file [place] [address] [address] [place] [address]
--- OUTSIDE RECORDS SUMMARY | 2025-04-23 15:09 | XMS_ITS ---
Author Organization [facility] Address [address] [place] [address] Care Team Providers Care Retail Commission Sales Associate Name Role Phone Mona Currie MD PhD Unavailable [phone] Sammy Shepard MD Unavailable [phone] Rikki Amezquita MD Primary Care Provider Dialysis Access Sites Type Status Location Placement Date Removal Da te Hemodialysis AV Access Upper arm Active Left Upper Arm - Anterior Procedures Procedure Name Priority Date/Time Associated Diagnosis Comments EGFR STAT 04/10/2025 4:43 PM MATERIAL COORDINATOR DIFFERENTIAL AUTO STAT 04/10/2025 4:4 3 PM MATERIAL COORDINATOR APTT STAT 04/10/2025 4:43 PM MATERIAL COORDINATOR PROTIME-INR Routine 04/10/2025 4:43 PM MATERIAL COORDINATOR COMPREHENSIVE METABOLIC PANEL STAT 04/10/2025 4:43 PM MATERIAL COORDINATOR CBC WITH AUTO DIFFERENTIAL STAT 04/10/2025 4:43 PM MATERIAL COORDINATOR POCT LIPID PANEL Routine 07/01/2024 9:57 AM MATERIAL COORDINATOR Need for lipid screening HEMOGLOBIN A1C Routine 02/27/2024 5:59 AM CDT HEPATITIS PANEL, ACUTE STAT 3:59 PM MATERIAL COORDINATOR from Last 3 Months or Most Recently Relevant to Health Maintenance Allergies Active Allergy Reactions Criticality Noted Date Comments Diphenhydramine Other (See comments) Low Restless leg Nickel Rash Medium Nifedipine Chest tightness Medium Enlkogs-Ukd-Ick Reductase Inhibitors Muscle pain Medium Sulfa Hives [...] tablet (20 mg total) nightly Active banana grhqol-SKQ-dce er 5 gram-45 kcal/60 mL liquid in [...] per tube 1 tablet (200 mcg total) auditor internal before breakfast 03/31/20 Active Additional Information Patient [...] 03/26/2025 Assessment & Plan (04/16/2025 9:46 AM MATERIAL COORDINATOR): Treated inpatient although likely asymptomatic bacteriuria with sx favored to be metabolic encephalopathy, completed Augmentin 03/10-03/16 Monitor Oliguric at baseline Assessment & Plan (04/08/2025 4:06 PM MATERIAL COORDINATOR): Treated inpatient Likely asymptomatic bacteriuria with sx favored to be metabolic encephalopathy, completed Augmentin 03/10-03/16 monitor Assessment & Plan (04/01/2025 8:55 PM MATERIAL COORDINATOR): Likely asymptomatic bacteriuria with sx favored to be metabolic encephalopathy, completed Augmentin 03/10-03/16 monitor Open wound of left heel 03/25/2025 Assessment & Plan (03/25/2025 4:39 PM MATERIAL COORDINATOR): Subacute, stabilizing Completed course of antibiotics while admitted Ulceration thought to be related to significant atherosclerosis and potential claudication for which patient has vascular follow-up with Dr. Chandler. At [facility] per family, plans to transport Wound care [facility] to follow-up facility Apply skin prep with calcium alginate to ulcerated area and pressure dressing, to be changed daily Discussed with nursing staff Debility 03/25/2025 Assessment & Plan (03/25/2025 4:39 PM MATERIAL COORDINATOR): Pt appropriately at SNF to regain strength. [...] 04/13/2024 Assessment & Plan (04/28/2024 2:26 PM MATERIAL COORDINATOR): Stable on room air, continue trelegy, spiriva, prn duonebs Assessment & Plan (04/13/2024 12:50 PM MATERIAL COORDINATOR): Stable on room air, continue trelegy, spiriva, [...] 02/26/2024 Assessment & Plan (03/25/2025 4:39 PM MATERIAL COORDINATOR): Chronic, stable Per review hemoglobin 8.7, hematocrit 29.0 per review of labs from [facility] Repeat CBC ordered Assessment & Plan (04/28/2024 2:29 PM MATERIAL COORDINATOR): Hb 9-10 at baseline, stable, continue epogen with HD CVA, old, aphasia 02/26/2024 Assessment & Plan (04/01/2025 8:57 PM MATERIAL COORDINATOR): Neuro condition consistent with baseline with persistent aphasia, confusion; able to self propel WC with leg, assist with some care Remains a fall risk Continue atorvastatin, maintain BP and glycemic control 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 F/u with PCP Assessment & Plan (04/13/2024 12:46 PM MATERIAL COORDINATOR): Recently pulled out by patient, surgical site is healing, continue to clean daily and cover with dry gauze Assessment & Plan (04/09/2024 1:53 PM MATERIAL COORDINATOR): Ok to keep tube out, cover area daily with dry gauze until healed, notify provider for change in condition or sx of dysphagia Assessment & Plan (04/06/2024 8:05 PM MATERIAL COORDINATOR): Now tolerating PO, likely could permanently DC soon, continue with h2o flushes for now Assessment & Plan (03/15/2024 10:55 AM MATERIAL COORDINATOR): Continue to flush q.i.d., able to tolerate food by mouth, PRINTED CIRCUIT BOARD PANELS DEVELOPER following Assessment & Plan (03/06/2024 9:49 PM [...] on imaging, continue nepro at 40ml/hr with PRINTED CIRCUIT BOARD PANELS DEVELOPER following for repeat swallow studies Hyperkalemia 01/18/2024 Assessment & Plan (01/18/2024 7:41 AM CDT): Improved after treatment at the hospital. Continue to monitor with dialysis. 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 01/18/2024 Assessment & Plan (04/16/2025 9:46 AM MATERIAL COORDINATOR): Subacute with chronic debility, ambulatory with walker at home R sided weakness, aphasia Continue statin, maintain BP and glycemic control provides total care at home Assessment & Plan (04/08/2025 4:07 PM MATERIAL COORDINATOR): Chronic debility, ambulatory with walker at baseline R sided weakness, aphasia Continue statin, maintain Bp and glycemic control Assessment & Plan (03/25/2025 4:39 PM MATERIAL COORDINATOR): Chronic, stable Significant aphasia and right sided hemiplegia Previous to hospitalization was ambulatory with use of walker Continue Eliquis and Atorvastatin Assessment & Plan (04/28/2024 2:31 PM MATERIAL COORDINATOR): Has some improvement with therapy but remains weak with hemiparesis and aphasia, requires full care for all ADLs, unable to reposition self and will require electric hospital bed at home, ongoing PT/OT Contonie asa, statin, eliquis Heart healthy diet with exercise as tolerated Maintain BP and glycemic control F/u PCP Assessment & Plan (04/13/2024 12:49 PM MATERIAL COORDINATOR): Deficits improving have seem to stabilize now ambulatory with walker and gait belt, tolerating PO, speech garbled, continue statin, eliquis, heart healthy diet with exercise as tolerated; may need to transfer to LTC vs home with home health and family to care Assessment & Plan (04/09/2024 1:53 PM MATERIAL COORDINATOR): Deficits improving, now ambulatory with walker and gait belt, tolerating PO, speech remains garbled, continue statin, eliquis, heart healthy diet with exercise as tolerated Assessment & Plan (04/06/2024 8:08 PM MATERIAL COORDINATOR): Improving with therapies, now ambulatory and tolerating PO, speech remains garbled, continue statin, eliquis, heart healthy diet with exercise as tolerated Assessment & Plan (03/31/2024 2:26 PM MATERIAL COORDINATOR): Speech and mobility improving, now ambulatory with walker and gait belt. Continue PT/OT/PRINTED CIRCUIT BOARD PANELS DEVELOPER, continue statin and Eliquis, maintain BP and glycemic control Assessment & Plan (03/20/2024 8:07 PM MATERIAL COORDINATOR): Improving with therapy, continue statin and Eliquis, maintain BP and glycemic control. Continue PT OT, PRINTED CIRCUIT BOARD PANELS DEVELOPER, remains a fall risk F/u with neurology as scheduled, plans to DC home with Assessment & Plan (03/15/2024 10:51 AM MATERIAL COORDINATOR): Improving with therapy, continue statin and Eliquis, maintain BP and glycemic control. Continue PT OT, PRINTED CIRCUIT BOARD PANELS DEVELOPER, remains a fall risk Assessment & Plan (03/06/2024 9:49 PM CDT): Stable, improving with therapies, continue statin, eliquis, PT/OT/PRINTED CIRCUIT BOARD PANELS DEVELOPER, supportive care, continue to advance diet as tolerated Assessment & Plan (02/27/2024 3:02 PM CDT): Stable, improving with therapies, continue statin, eliquis, PT/OT/PRINTED CIRCUIT BOARD PANELS DEVELOPER, supportive care with plans to DC home following rehab stay Assessment & Plan (02/20/2024 1:56 PM CDT): Deficits improving with therapy, continue statin and eliquis, PT/OT/PRINTED CIRCUIT BOARD PANELS DEVELOPER with video swallow scheduled Continue bID zyprexa 2.5mg for now, may tolerate GDR at subsequent visit Assessment & Plan (02/19/2024 10:51 AM CDT): Improving with therapy, no recurrent episodes of agitation since starting BID zyprexa, continue statin and eliquis, PT/OT/PRINTED CIRCUIT BOARD PANELS DEVELOPER with video swallow scheduled Assessment & Plan (02/11/2024 1:32 PM CDT): Improving, continue statin and eliquis, PT/OT. PRINTED CIRCUIT BOARD PANELS DEVELOPER following for advancement of diet, will schedule Zyprexa 2.5mg HS rather than In am, conitnue supportive care, fall precautions Assessment & Plan (02/08/2024 3:56 PM CDT): Mobility and speech improving with intermittent agitation, fall risk, zyprexa increased to 2.5mg daily as unable to be redirected at times. Continue statin, eliquis, PT/TO/PRINTED CIRCUIT BOARD PANELS DEVELOPER, TF nataliyaro per RD recs Assessment & Plan (02/03/2024 8:55 AM CDT): Mobility is improving, remains aphasic, able to follow simple commands and has spontaneous movements of all extremities; continue statin, eliquis, glycemic control, BP management, PT/OT/PRINTED CIRCUIT BOARD PANELS DEVELOPER Assessment & Plan (02/01/2024 9:33 AM CDT): Mobility is improving, intermittent anxiety, will need to monitor and provide supportive care, attempt to avoid benzos or antipsychotics although may need prn low dose meds due to fall risk and inability to be redirected; continue statin, eliquis, glycemic control, BP management, PT/OT/PRINTED CIRCUIT BOARD PANELS DEVELOPER Assessment & Plan (01/28/2024 2:35 PM CDT): [...] & Plan (01/25/2024 12:46 PM CDT): Ongoing PT/OT/PRINTED CIRCUIT BOARD PANELS DEVELOPER with generalized weakness, aphasia and R sided facial droop, follows some simple commands, continue statin and eliquis; monitor for fall risk given intermittent agitation; no new meds today but may need PRN due to fall risk Assessment & Plan (01/25/2024 11:13 AM CDT): Mobility is improving now at times getting out of bed without help, continue to monitor for fall risk, PT/OT/PRINTED CIRCUIT BOARD PANELS DEVELOPER; continue statin and eliquis Assessment & Plan (01/18/2024 5:52 PM CDT): Ongoing R sided weakness, R sided facial droop, aphasia; reports some improvement in spontaneous movement and mumbling. Continue asa, statin, eliquis; of note has documented statin intolerance, will need to find out specifics Continue PT/OT PRINTED CIRCUIT BOARD PANELS DEVELOPER , tube feeds for now with plans for repeat video swallow Type 2 diabetes mellitus with renal complication 01/18/2024 Assessment & Plan (04/16/2025 9:45 AM MATERIAL COORDINATOR): Stable on lantus 18 units HS Glucose 124 this am Continue accuchecks with dm diet Assessment & Plan (04/01/2025 9:09 PM MATERIAL COORDINATOR): DC on lantus 18 units daily; order accuchecks AM and HS Encourage DM diet Assessment & Plan (03/25/2025 4:39 PM MATERIAL COORDINATOR): Chronic, stable Continue insulin glargine 18 units subcutaneously at bedtime Accu-Cheks daily Assessment & Plan (04/09/2024 1:54 PM MATERIAL COORDINATOR): Glucose logs reviewed and stable, continue HS lantus and mealtime SSI, will try to DC SSI prior to DC home Assessment & Plan (04/06/2024 8:06 PM MATERIAL COORDINATOR): Stable, continue HS lantus and mealtime SSI, [...] 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/06/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 Chronic anticoagulation 10/06/2022 Paroxysmal atrial fibrillation 10/06/2022 Assessment & Plan (04/16/2025 9:45 AM MATERIAL COORDINATOR): stable, rate controlled on exam Continue Metoprolol, Amiodarone, Eliquis F/u cardiology Dr Gillette Remains a fall risk Assessment & Plan (04/08/2025 4:08 PM MATERIAL COORDINATOR): Chronic, stable, rate controlled on exam Continue Metoprolol, Amiodarone, Eliquis F/u cardiology Dr Gillette Assessment & Plan (04/01/2025 9:11 PM MATERIAL COORDINATOR): Chronic, stable, rate controlled on exam Continue Metoprolol, Amiodarone, Eliquis F/u cardiology Dr Gillette Assessment & Plan (03/25/2025 4:39 PM MATERIAL COORDINATOR): Chronic, stable Continue Metoprolol, Amiodarone, Eliquis F/u cardiology Dr Gillette Assessment & Plan (04/28/2024 2:28 PM MATERIAL COORDINATOR): Rate controlled, continue metoprolol, amiodarone, eliquis F/u cardiology dr wiley Assessment & Plan (04/13/2024 12:46 PM MATERIAL COORDINATOR): Rate controlled on exam; continue metoprolol, amiodarone, Eliquis ; no recent falls Assessment & Plan (04/06/2024 8:06 PM MATERIAL COORDINATOR): Rate controlled; continue metoprolol, amiodarone, Eliquis Assessment & Plan (03/31/2024 2:29 PM MATERIAL COORDINATOR): Rate controlled on metoprolol, amiodarone; continue b.i.d. Eliquis Assessment & Plan (03/20/2024 8:09 PM MATERIAL COORDINATOR): Stable on metoprolol, amiodarone and eliquis, conitnue [...] 10/06/2022 Assessment & Plan (04/16/2025 9:45 AM MATERIAL COORDINATOR): Stable, On chronic HD prior to CVA Continue treatments at [facility] Continue calcium acetate Encourage renal diet with supplements Weekly labs per HD Assessment & Plan (04/08/2025 4:05 PM MATERIAL COORDINATOR): Stable, On chronic HD prior to CVA Continue treatments at [facility] Continue calcium acetate Continue Renal diet, offer supplements Weekly labs per HD Assessment & Plan (04/01/2025 8:58 PM MATERIAL COORDINATOR): On chronic HD prior to CVA Continue treatments at [facility] Continue calcium acetate Renal diet, offer supplements Weekly labs per HD Assessment & Plan (03/25/2025 4:39 PM MATERIAL COORDINATOR): Chronic, stable Continue treatments Sunday/Sunday/Sunday Nephrology to follow while at facility Assessment & Plan (04/28/2024 2:26 PM MATERIAL COORDINATOR): Continue treatments outpatient MWF, epogen on HD days, f/u with nephrology Assessment & Plan (04/09/2024 1:54 PM MATERIAL COORDINATOR): Tolerating HD MWF, at times using p.r.n. lorazepam with HD treatment, anxiety during access. Monitor electrolytes and weight Continue Epogen Assessment & Plan (04/06/2024 8:08 PM MATERIAL COORDINATOR): Continue HD MWF, p.r.n. lorazepam with HD treatment. Monitor electrolytes and weight Continue Epogen Assessment & Plan (03/31/2024 2:26 PM MATERIAL COORDINATOR): Continue HD MWF, continues to use p.r.n. lorazepam with HD treatments; daughter states this is helping,. Monitor electrolytes and weight Continue Epogen Assessment & Plan (03/20/2024 8:08 PM MATERIAL COORDINATOR): Continue HD MWF, continue to monitor electrolytes and weight, may use p.r.n. lorazepam with HD treatments; no reports of recent agitation with treatments Assessment & Plan (03/15/2024 10:52 AM MATERIAL COORDINATOR): Continue HD MWF, continue to monitor electrolytes [...] 3:59 PM CDT): Receiving treatments MWF at [facility], intermittent anxiety, increase zyprexa to daily, [...] 5:55 PM CDT): Continue treatments MWF at [facility], TID calcium acetate, nephrology following, nepro tube feeds ordered, starting on jevity on admission due to no nepro available Assessment & Plan (01/18/2024 7:41 AM CDT): Continue with dialysis 3 times a week. Continue calcium acetate. Labs with dialysis. Preoperative cardiovascular examination 09/20/19 22 Chronic heart failure with preserved ejection fr action 07/02/2019 Assessment & Plan (03/25/2025 4:39 PM MATERIAL COORDINATOR): Chronic, stable Euvolemic on exam Continue metoprolol succinate 50 mg 1 capsule by mouth once daily Assessment & Plan (04/28/2024 2:26 PM MATERIAL COORDINATOR): Stable, continue metoprolol, monitor weights with HD Assessment & Plan (03/20/2024 8:08 PM MATERIAL COORDINATOR): Stable on exam, continue metoprolol, monitor I/O, [...] 02/04 Assessment & Plan (04/06/2024 8:06 PM MATERIAL COORDINATOR): Weight is stable since rehab admission, continue exercise as tolerated, RD following Assessment & Plan (03/20/2024 8:09 PM MATERIAL COORDINATOR): Mobility is improving, recently stopped TF and [...] 02/04 Assessment & Plan (04/08/2025 4:08 PM MATERIAL COORDINATOR): Stable, euvolemic appearing Continue isosorbide, hydralazine, metoprolol for BP goal <140/<90 HD MWF Assessment & Plan (04/01/2025 9:10 PM MATERIAL COORDINATOR): Continue isosorbide, hydralazine, metoprolol for BP goal <140/<90 Assessment & Plan (04/13/2024 12:48 PM MATERIAL COORDINATOR): Stable/compensated, continue HD treatments, weekly weights, metoprolol, statin amio, eliquis Assessment & Plan (03/20/2024 8:08 PM MATERIAL COORDINATOR): Stable on metoprolol and amiodarone, continue HD [...] type 2 diabetes mellitus ([facility]) 05/20/2013 Overview (08/11/2016): DMII WO CMP UNCNTRLD Assessment & Plan (04/08/2025 4:05 PM MATERIAL COORDINATOR): Well controlled on lantus 18 units hs with mealtime SSI continue accuchecks ac and hs Encourage DM Diet No recent A1c for review Assessment & Plan (04/13/2024 12:48 PM MATERIAL COORDINATOR): Well controlled on lantus 18 units hs with mealtime SSI, continue accuchecks ac and hs Assessment & Plan (03/15/2024 10:54 AM MATERIAL COORDINATOR): Glucose logs reviewed continue lantus 18 units [...] NOS Assessment & Plan (03/25/2025 4:39 PM MATERIAL COORDINATOR): Chronic, not at goal Patient with elevated systolics, will continue to monitor Continue hydralazine 25 mg by mouth t.i.d., Imdur 30 mg by mouth daily, and metoprolol Plan to increase hydralazine doses to 50 mg t.i.d. if needed Assessment & Plan (04/28/2024 2:28 PM MATERIAL COORDINATOR): Continue Lantus 18 units HS with mealtime SSI and daughter will assist with med administration Bp stable on metoprolol, monitor for BP goal ,140/<90 Continue accuchecks ac and hs Assessment & Plan (03/31/2024 2:28 PM MATERIAL COORDINATOR): Continue Lantus 18 units HS with mealtime SSI, glucose 236 this a.m., evening glucose 170, continue diabetic diet. BP stable on metoprolol Assessment & Plan (03/15/2024 10:53 AM MATERIAL COORDINATOR): BP stable on metoprolol 50mg daily, continue [...] NOS Assessment & Plan (03/25/2025 4:39 PM MATERIAL COORDINATOR): Chronic, stable Continue levothyroxine 200 mcg 1 tablet by mouth daily Assessment & Plan (04/13/2024 12:51 PM MATERIAL COORDINATOR): Subclinical hypothyroidism with TSH trending up to 92, encourage appropriate administration of medication in early a.m. on empty stomach, Synthroid increased to 200 mcg daily at previous visit with plan to repeat ths in 6 weeks, T3 and T4 normal Assessment & Plan (03/31/2024 2:30 PM MATERIAL COORDINATOR): Subclinical hypothyroidism with TSH trending up to 92, encourage appropriate administration of medication in early a.m. on empty stomach, Synthroid increased to 200 mcg daily Assessment & Plan (03/20/2024 8:09 PM MATERIAL COORDINATOR): Inpatient workup with Tsh elevated with normal t4, ensure medication administration appropriate early am on empty stomach; repeat TSH this week Assessment & Plan (03/15/2024 10:54 AM MATERIAL COORDINATOR): Inpatient workup with Tsh elevated with normal [...] drink = 0.6 oz pur e alcohol) [facility] Utilities Answer Date Recorded In the past 12 months has [employer], [employer], or [employer] threatened to shut off services in your [...] any clubs o r organizations such as christianity groups, unions, fraternal or athletic groups, or [...] place to sleep or slept in a senior care (including now)? No 05/13/2021 Housing Stability Vital [...] were you homeless or living in a senior care (including now)? No 02/26/2024 Personal Safety Answer Date Recorded Have you ever been in or are you currently in a harmful physical or emotional relationship or is someone making you feel afraid or unsafe? Patient unable to answer 04/10/2025 Comments No Sex and Gender Information Value Date Recorded Sex Assigned at Not on file Legal Sex Female 10:22 AM MATERIAL COORDINATOR Gender Identity Not on file Sexual Orientation Not on file Last Filed Vital Signs Vital Sign Reading Time Taken Comments Blood Pressure 189/79 04/10/2025 6:45 PM MATERIAL COORDINATOR Pulse 69 04/10/2025 6:45 PM MATERIAL COORDINATOR Temperature 36.2 C (97.2 F) 04/10/2025 4:20 PM MATERIAL COORDINATOR Respiratory Rate 18 04/10/2025 6:45 PM MATERIAL COORDINATOR Oxygen Saturation 95% 04/10/2025 6:45 PM MATERIAL COORDINATOR Inhaled Oxygen Concentration - - Weight 87.6 kg (193 lb 2 oz) 04/10/2025 4:30 PM MATERIAL COORDINATOR Height 162.6 cm (5' 4) 07/01/2024 9:38 AM MATERIAL COORDINATOR Body Mass Index 33.15 07/01/2024 9:38 AM MATERIAL COORDINATOR Results * (ABNORMAL) eGFR (04/10/2025 4:43 PM MATERIAL COORDINATOR) eGFR 11(L) >=60 mL/min/1. 73 m2 Comment: [...] last reviewed 2021. Blood 04/10/2025 4:43 PM MATERIAL COORDINATOR 04/10/2025 4:46 PM MATERIAL COORDINATOR Gwen Bonilla MD LAB BLOOD ORDERABLES F inal Result [facility] [address] [facility] Department [place] [address] * (ABNORMAL) Differential, auto (04/10/2025 4:43 PM MATERIAL COORDINATOR) Pathologist [facility] Neutrophil abs 5.77 1.50 - 6.50 K/cumm Imm gran abs 0.01 0.00 - 0.10 K/cumm [facility] Lymphocyte abs 1.03 0.80 - 3.30 K/cumm [facility] Monocyte abs 0.78 0.20 - 0.80 K/cumm [facility] Eosinophil abs 0.51(H) 0.00 - 0.50 K/cumm [facility] Basophil abs 0.03 0.00 - 0.10 K/cumm [facility] Neutrophil pct 70.9 % [facility] Comment: Interpretive Data Percent cell count reference ranges are not reported, since discordance with absolute values may lead to misinterpretation of CBC data. Current Interpretive Data was last revised on 2017. Imm gran pct 0.1 % [facility] Comment: Interpretive Data Percent cell count reference ranges are not reported, since discordance with absolute values may lead to misinterpretation of CBC data. Current Interpretive Data was last revised on 2017. Lymphocyte pct 12.7 % [facility] Comment: Interpretive Data Percent cell count reference ranges are not reported, since discordance with absolute values may lead to misinterpretation of CBC data. Current Interpretive Data was last revised on 2017. Monocyte pct 9.6 % [facility] Comment: Interpretive Data Percent cell count reference ranges are not reported, since discordance with absolute values may lead to misinterpretation of CBC data. Current Interpretive Data was last revised on 2017. Eosinophil pct 6.3 % [facility] Comment: Interpretive Data Percent cell count reference ranges are not reported, since discordance with absolute values may lead to misinterpretation of CBC data. Current Interpretive Data was last revised on 2017. Basophil pct 0.4 % [facility] Comment: Interpretive Data Percent cell count reference ranges are not reported, since discordance with absolute values may lead to misinterpretation of CBC data. Current Interpretive Data was last revised on 2017. Blood 04/10/2025 4:43 PM MATERIAL COORDINATOR 04/10/2025 4:46 PM MATERIAL COORDINATOR us Gwen Bonilla MD LAB BLOOD ORDERABLES F inal Result [place] [id number] [facility] Department [place] [address] * (ABNORMAL) CBC with auto differential (04/10/2025 4:43 PM MATERIAL COORDINATOR) Pathologist [facility] WBC 8.13 3.80 - 9.90 K/cumm Hgb 8.0(L) 11.9 - 15.5 g/dL [facility] Hct 26.6(L) 35.6 - 45.5 % [facility] Plt 285 150 - 400 K/cumm [facility] MPV 9.6 9.1 - 12.3 fL [facility] [facility] RBC 3.05(L) 3.90 - 5.20 M/cumm [facility] MCV 87.2 81.3 - 96.4 fL [facility] MCH 26.2(L) 27.1 - 33.3 pg [facility] MCHC 30.1(L) 32.3 - 35.7 g/dL [facility] RDW CV 17.4(H) 11.1 - 14.9 % [facility] RDW SD 55.4(H) 35.7 - 48.1 fL [facility] NRBC abs 0.00 0.00 - 0.01 K/cumm [facility] Blood 04/10/2025 4:43 PM MATERIAL COORDINATOR 04/10/2025 4:46 PM MATERIAL COORDINATOR Gwen Bonilla MD LAB BLOOD ORDERABLES F inal Result Performing Organization Address [facility] Co de Phone Number [address] [place] [employer] [place] [address] * (ABNORMAL) aPTT (04/10/2025 4:43 PM MATERIAL COORDINATOR) aPTT 42(H) 22 - 37 sec Comment: Interpretive data aPTT test has not been evaluated for monitoring heparin therapy. The anti-Xa is the preferred test. Current interpretive data was last revised on 2019. Blood 04/10/2025 4:43 PM MATERIAL COORDINATOR 04/10/2025 4:46 PM MATERIAL COORDINATOR Gwen Bonilla MD LAB BLOOD ORDERABLES F inal Result Performing Organization Address [facility] Co de Phone Number [address] [place] [employer] [place] [address] * (ABNORMAL) Protime-INR (04/10/2025 4:43 PM MATERIAL COORDINATOR) PT 18.70(H) 12.00 - 14.60 sec INR 1.56(H) 0.90 - 1.20 [facility] Comment: Interpretive data Oral anticoagulant therapeutic ranges: Venous thromboembolism prophylaxis or treatment: 2.0-3.0 CARDIOLOGY Standard range: 2.0-3.0 High-intensity range: 2.5-3.5 Refer to indication-specific guidelines for appropriate target ranges for prosthetic heart valve replacement. Current interpretive data was last revised on 2019. Blood 04/10/2025 4:43 PM MATERIAL COORDINATOR 04/10/2025 4:46 PM MATERIAL COORDINATOR Gwen Bonilla MD LAB BLOOD ORDERABLES F inal Result [facility] [address] [facility] Department [place] [address] * (ABNORMAL) Comprehensive metabolic panel (04/10/2025 4:43 PM MATERIAL COORDINATOR) Sodium 137 135 - 145 mmol/L Potassium, pl 3.7 3.3 - 4.9 mmol/L [facility] Comment:Hemolyzed; Potassium value may be falsely elevated by as much as 1.0 mmol/L. Suggest redraw and reanalysis. Chloride 96(L) 97 - 110 mmol/L [facility] CO2 33(H) 22 - 32 mmol/L [facility] Anion gap 8 2 - 15 mmol/L [facility] BUN 25 6 - 25 mg/dL [facility] Creatinine 3.95(H) 0.60 - 1.10 mg/dL [facility] Glucose 132 70 - 199 mg/dL [facility] Comment: Interpretive Data Fasting glucose >/= [...] 2022. Calcium 8.8 8.5 - 10.3 mg/dL [facility] Bilirubin, total 0.6 0.1 - 1.2 mg/dL [facility] Protein, pl 7.6 6.5 - 8.5 g/dL [facility] Albumin 3.5 3.5 - 5.0 g/dL [facility] Alk phos 122 40 - 130 Units/L [facility] ALT 13 7 - 45 Units/L [facility] AST 25 10 - 45 Units/L [facility] Comment:Hemolyzed; result ma y be falsely elevated Blood 04/10/2025 4:43 PM MATERIAL COORDINATOR 04/10/2025 4:46 PM MATERIAL COORDINATOR Gwen Bonilla MD LAB BLOOD ORDERABLES F inal Result Performing Organization Address City/[facility]/ZIP Co de Phone Number [facility] [address] [facility] [employer] [place] [address] * POCT lipid panel (07/01/2024 9:57 AM MATERIAL COORDINATOR) Cholesterol, POC 138 mg/dL Comment:GLU = 176 HDL, POC 17 mg/dL Triglycerides, POC 168 mg/dL LDL Cholesterol POC 88 mg/dL Chol/HDL Ratio, POC 5.2 Non-HDL Cholesterol, POC 121 mg/dL Cholesterol Total, POC 138 mg/dL Capillary blood 07/01/2024 9 :57 AM MATERIAL COORDINATOR Uriel Gillette MD POINT OF CARE TEST [...] and children were not included. (Diabetes Care [id number], 2008). The eAG is not equivalent to a fasting glucose. Blood 02/27/2024 5:59 AM CDT 02/27/2024 7:11 AM CDT Asif Delgadillo MD LAB BLOOD ORDERABLES Final Re sult Performing Organization Address City/[facility]/ZIP Co de Phone Number [facility] [address] Department [place] [address] * Hepatitis panel, acute (05/08/2022 3:59 PM MATERIAL COORDINATOR) Hep A IgM Nonreactive Nonreactive [facility] Comment: Interpretive Data: If Hep A IgM Ab is reported as Equivocal, a new sample should be drawn in two weeks for testing. Current interpretive data was last revised on 19. Hep B core IgM Nonreactive Nonreactive [facility] Comment: Interpretive Data If HepB Core IgM Ab is reported as Equivocal, a new sample should be drawn in two weeks for testing. Current interpretive data was last revised on 19. Hep C Ab Nonreactive Nonreactive [facility] Comment: Interpretive Data Nonreactive: Antibodies to [...] [facility] Blood 05/08/2022 3:59 PM MATERIAL COORDINATOR 05/08/2022 3:59 PM MATERIAL COORDINATOR us Mellissa Garcia DO LAB MICROBIOLOGY - GENERAL ORD ERABLES Final Result [facility] [address] [place] [address] from Last 3 Months or Most Recently Relevant to Health Maintenance
--- OUTSIDE RECORDS SUMMARY | 2025-04-23 15:09 | XMS_ITS | Encounter Summary ---
Author Organization [facility] Address [address] [facility] [place] [address] Care Team Providers Care Revenue Cycle Analyst Name Role Phone Rikki Amezquita MD Primary Care Provider [phone] Reason for Referral * Radiology Services (Routine) - Closed Specialty Diagnoses / Procedures Referred By Contac t Referred To Contact Vascular Lab Diagnoses ESRD (end stage renal disease) on dialysis (HCC) Procedures IR Angio Av [facility] Paul Chandler MD [address] [place] [address] [place] [id number] Phone: tel: fax: [facility] [address] [place] [address], [address] [place] [address] Phone: tel: fax: Referral ID Status Reason Start Date Expiration Date Visits Re quested Visits Authorized [id number] Closed 10/01/2024 10/30/2024 1 1 Encounter Details Date Type Department Care Team (Late st Contact Info) Description 10/01/2024 Telephone [facility] [address] [place] [address], [address] [place] [address] Johana Kent, RN Social History [...] st Contact Info) Description 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 [facility] Imaging Services - CT Scan [address] [place] [address] Paul Chandler MD [address] [place] [address] [address] [place] [id number] 06/23/2025 2:45 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 Prior to beginning the procedure, [place] Protocol was performed to confirm the patient's [...] graft followed by placement of a 5 austrian catheter. Fluoroscopy was used for all catheter [...] disease documented in this encounter Care Teams Revenue Cycle Analyst Relationship Specialty Start Date End Date Rikki Amezquita MD [address] [place] [address] PCP - General 11/28/21 documented as of this encounter
--- OUTSIDE RECORDS SUMMARY | 2025-04-23 15:09 | XMS_ITS | Clinical Summary ---
Author Organization [facility] Address [address] [place] [address] Care Team Providers Care Manager Of Training Name Role Phone Mona Currie MD PhD Unavailable [phone] Sammy Shepard MD Unavailable [phone] Rikki Amezquita MD Primary Care Provider Allergies Active Allergy Reactions Criticality Noted Date Comments Diphenhydramine Other (See comments) Low Restless leg Nickel Rash Medium Nifedipine Chest tightness Medium Etngesa-Puf-Gsf Reductase Inhibitors Muscle pain Medium Sulfa Hives [...] tablet (20 mg total) nightly Active banana drdooj-IWY-wrv er 5 gram-45 kcal/60 mL liquid in [...] per tube 1 tablet (200 mcg total) 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 03/31/20 24 Active Additional Information [...] 03/26/2025 Assessment & Plan (04/16/2025 9:46 AM POSTAL TRANSPORTATION CLERK): Treated inpatient although likely asymptomatic bacteriuria with sx favored to be metabolic encephalopathy, completed Augmentin 03/10-03/16 Monitor Oliguric at baseline Assessment & Plan (04/08/2025 4:06 PM POSTAL TRANSPORTATION CLERK): Treated inpatient Likely asymptomatic bacteriuria with sx favored to be metabolic encephalopathy, completed Augmentin 03/10-03/16 monitor Assessment & Plan (04/01/2025 8:55 PM POSTAL TRANSPORTATION CLERK): Likely asymptomatic bacteriuria with sx favored to be metabolic encephalopathy, completed Augmentin 03/10-03/16 monitor Open wound of left heel 03/25/2025 Assessment & Plan (03/25/2025 4:39 PM POSTAL TRANSPORTATION CLERK): Subacute, stabilizing Completed course of antibiotics while admitted Ulceration thought to be related to significant atherosclerosis and potential claudication for which patient has vascular follow-up with Dr. Chandler. At [facility] per family, plans to transport Wound care [facility] to follow-up facility Apply skin prep with calcium alginate to ulcerated area and pressure dressing, to be changed daily Discussed with nursing staff Debility 03/25/2025 Assessment & Plan (03/25/2025 4:39 PM POSTAL TRANSPORTATION CLERK): Pt appropriately at SNF to regain strength. [...] 04/13/2024 Assessment & Plan (04/28/2024 2:26 PM POSTAL TRANSPORTATION CLERK): Stable on room air, continue trelegy, spiriva, prn duonebs Assessment & Plan (04/13/2024 12:50 PM POSTAL TRANSPORTATION CLERK): Stable on room air, continue trelegy, spiriva, [...] 02/26/2024 Assessment & Plan (03/25/2025 4:39 PM POSTAL TRANSPORTATION CLERK): Chronic, stable Per review hemoglobin 8.7, hematocrit 29.0 per review of labs from [facility] Repeat CBC ordered Assessment & Plan (04/28/2024 2:29 PM POSTAL TRANSPORTATION CLERK): Hb 9-10 at baseline, stable, continue epogen with HD CVA, old, aphasia 02/26/2024 Assessment & Plan (04/01/2025 8:57 PM POSTAL TRANSPORTATION CLERK): Neuro condition consistent with baseline with persistent aphasia, confusion; able to self propel WC with leg, assist with some care Remains a fall risk Continue atorvastatin, maintain BP and glycemic control PT/OT/J2EE JAVA DEVELOPER provides full care at home Assessment [...] 01/25/2024 Assessment & Plan (04/01/2025 9:04 PM POSTAL TRANSPORTATION CLERK): Dressing in place with wound [facility] following, non healing wound; imaging reviewed, severe [...] 01/25/2024 Assessment & Plan (04/28/2024 2:25 PM POSTAL TRANSPORTATION CLERK): Tube removed, keep healing stoma clean, dry, covered. F/u with PCP Assessment & Plan (04/13/2024 12:46 PM POSTAL TRANSPORTATION CLERK): Recently pulled out by patient, surgical site is healing, continue to clean daily and cover with dry gauze Assessment & Plan (04/09/2024 1:53 PM POSTAL TRANSPORTATION CLERK): Ok to keep tube out, cover area daily with dry gauze until healed, notify provider for change in condition or sx of dysphagia Assessment & Plan (04/06/2024 8:05 PM POSTAL TRANSPORTATION CLERK): Now tolerating PO, likely could permanently DC soon, continue with h2o flushes for now Assessment & Plan (03/15/2024 10:55 AM POSTAL TRANSPORTATION CLERK): Continue to flush q.i.d., able to tolerate food by mouth, J2EE JAVA DEVELOPER following Assessment & Plan (03/06/2024 9:49 [...] on imaging, continue nepro at 40ml/hr with J2EE JAVA DEVELOPER following for repeat swallow studies Hyperkalemia 01/18/2024 Assessment & Plan (01/18/2024 7:41 AM CDT): Improved after treatment at the hospital. Continue to monitor with dialysis. 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 01/18/2024 Assessment & Plan (04/16/2025 9:46 AM POSTAL TRANSPORTATION CLERK): Subacute with chronic debility, ambulatory with walker at home R sided weakness, aphasia Continue statin, maintain BP and glycemic control provides total care at home Assessment & Plan (04/08/2025 4:07 PM POSTAL TRANSPORTATION CLERK): Chronic debility, ambulatory with walker at baseline R sided weakness, aphasia Continue statin, maintain Bp and glycemic control Assessment & Plan (03/25/2025 4:39 PM POSTAL TRANSPORTATION CLERK): Chronic, stable Significant aphasia and right sided hemiplegia Previous to hospitalization was ambulatory with use of walker Continue Eliquis and Atorvastatin Assessment & Plan (04/28/2024 2:31 PM POSTAL TRANSPORTATION CLERK): Has some improvement with therapy but remains weak with hemiparesis and aphasia, requires full care for all ADLs, unable to reposition self and will require electric hospital bed at home, ongoing PT/OT Contonie asa, statin, eliquis Heart healthy diet with exercise as tolerated Maintain BP and glycemic control F/u PCP Assessment & Plan (04/13/2024 12:49 PM POSTAL TRANSPORTATION CLERK): Deficits improving have seem to stabilize now ambulatory with walker and gait belt, tolerating PO, speech garbled, continue statin, eliquis, heart healthy diet with exercise as tolerated; may need to transfer to LTC vs home with home health and family to care Assessment & Plan (04/09/2024 1:53 PM POSTAL TRANSPORTATION CLERK): Deficits improving, now ambulatory with walker and gait belt, tolerating PO, speech remains garbled, continue statin, eliquis, heart healthy diet with exercise as tolerated Assessment & Plan (04/06/2024 8:08 PM POSTAL TRANSPORTATION CLERK): Improving with therapies, now ambulatory and tolerating PO, speech remains garbled, continue statin, eliquis, heart healthy diet with exercise as tolerated Assessment & Plan (03/31/2024 2:26 PM POSTAL TRANSPORTATION CLERK): Speech and mobility improving, now ambulatory with walker and gait belt. Continue PT/OT/J2EE JAVA DEVELOPER, continue statin and Eliquis, maintain BP and glycemic control Assessment & Plan (03/20/2024 8:07 PM POSTAL TRANSPORTATION CLERK): Improving with therapy, continue statin and Eliquis, maintain BP and glycemic control. Continue PT OT, J2EE JAVA DEVELOPER, remains a fall risk F/u with neurology as scheduled, plans to DC home with Assessment & Plan (03/15/2024 10:51 AM POSTAL TRANSPORTATION CLERK): Improving with therapy, continue statin and Eliquis, maintain BP and glycemic control. Continue PT OT, J2EE JAVA DEVELOPER, remains a fall risk Assessment & Plan (03/06/2024 9:49 PM CDT): Stable, improving with therapies, continue statin, eliquis, PT/OT/J2EE JAVA DEVELOPER, supportive care, continue to advance diet as tolerated Assessment & Plan (02/27/2024 3:02 PM CDT): Stable, improving with therapies, continue statin, eliquis, PT/OT/J2EE JAVA DEVELOPER, supportive care with plans to DC home following rehab stay Assessment & Plan (02/20/2024 1:56 PM CDT): Deficits improving with therapy, continue statin and eliquis, PT/OT/J2EE JAVA DEVELOPER with video swallow scheduled Continue bID zyprexa 2.5mg for now, may tolerate GDR at subsequent visit Assessment & Plan (02/19/2024 10:51 AM CDT): Improving with therapy, no recurrent episodes of agitation since starting BID zyprexa, continue statin and eliquis, PT/OT/J2EE JAVA DEVELOPER with video swallow scheduled Assessment & Plan (02/11/2024 1:32 PM CDT): Improving, continue statin and eliquis, PT/OT. J2EE JAVA DEVELOPER following for advancement of diet, will schedule Zyprexa 2.5mg HS rather than In am, conitnue supportive care, fall precautions Assessment & Plan (02/08/2024 3:56 PM CDT): Mobility and speech improving with intermittent agitation, fall risk, zyprexa increased to 2.5mg daily as unable to be redirected at times. Continue statin, eliquis, PT/TO/J2EE JAVA DEVELOPER, TF nataliyaro per RD recs Assessment & Plan (02/03/2024 8:55 AM CDT): Mobility is improving, remains aphasic, able to follow simple commands and has spontaneous movements of all extremities; continue statin, eliquis, glycemic control, BP management, PT/OT/J2EE JAVA DEVELOPER Assessment & Plan (02/01/2024 9:33 AM CDT): Mobility is improving, intermittent anxiety, will need to monitor and provide supportive care, attempt to avoid benzos or antipsychotics although may need prn low dose meds due to fall risk and inability to be redirected; continue statin, eliquis, glycemic control, BP management, PT/OT/J2EE JAVA DEVELOPER Assessment & Plan (01/28/2024 2:35 PM [...] & Plan (01/25/2024 12:46 PM CDT): Ongoing PT/OT/J2EE JAVA DEVELOPER with generalized weakness, aphasia and R sided facial droop, follows some simple commands, continue statin and eliquis; monitor for fall risk given intermittent agitation; no new meds today but may need PRN due to fall risk Assessment & Plan (01/25/2024 11:13 AM CDT): Mobility is improving now at times getting out of bed without help, continue to monitor for fall risk, PT/OT/J2EE JAVA DEVELOPER; continue statin and eliquis Assessment & Plan (01/18/2024 5:52 PM CDT): Ongoing R sided weakness, R sided facial droop, aphasia; reports some improvement in spontaneous movement and mumbling. Continue asa, statin, eliquis; of note has documented statin intolerance, will need to find out specifics Continue PT/OT J2EE JAVA DEVELOPER , tube feeds for now with plans for repeat video swallow Type 2 diabetes mellitus with renal complication 01/18/2024 Assessment & Plan (04/16/2025 9:45 AM POSTAL TRANSPORTATION CLERK): Stable on lantus 18 units HS Glucose 124 this am Continue accuchecks with dm diet Assessment & Plan (04/01/2025 9:09 PM POSTAL TRANSPORTATION CLERK): DC on lantus 18 units daily; order accuchecks AM and HS Encourage DM diet Assessment & Plan (03/25/2025 4:39 PM POSTAL TRANSPORTATION CLERK): Chronic, stable Continue insulin glargine 18 units subcutaneously at bedtime Accu-Cheks daily Assessment & Plan (04/09/2024 1:54 PM POSTAL TRANSPORTATION CLERK): Glucose logs reviewed and stable, continue HS lantus and mealtime SSI, will try to DC SSI prior to DC home Assessment & Plan (04/06/2024 8:06 PM POSTAL TRANSPORTATION CLERK): Stable, continue HS lantus and mealtime SSI, [...] 04/11/2023 At risk for 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 toxicity 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 10/06/2022 Chronic anticoagulation 10/06/2022 Paroxysmal atrial fibrillation 10/06/2022 Assessment & Plan (04/16/2025 9:45 AM POSTAL TRANSPORTATION CLERK): stable, rate controlled on exam Continue Metoprolol, Amiodarone, Eliquis F/u cardiology Dr Gillette Remains a fall risk Assessment & Plan (04/08/2025 4:08 PM POSTAL TRANSPORTATION CLERK): Chronic, stable, rate controlled on exam Continue Metoprolol, Amiodarone, Eliquis F/u cardiology Dr Gillette Assessment & Plan (04/01/2025 9:11 PM POSTAL TRANSPORTATION CLERK): Chronic, stable, rate controlled on exam Continue Metoprolol, Amiodarone, Eliquis F/u cardiology Dr Gillette Assessment & Plan (03/25/2025 4:39 PM POSTAL TRANSPORTATION CLERK): Chronic, stable Continue Metoprolol, Amiodarone, Eliquis F/u cardiology Dr Gillette Assessment & Plan (04/28/2024 2:28 PM POSTAL TRANSPORTATION CLERK): Rate controlled, continue metoprolol, amiodarone, eliquis F/u cardiology dr wiley Assessment & Plan (04/13/2024 12:46 PM POSTAL TRANSPORTATION CLERK): Rate controlled on exam; continue metoprolol, amiodarone, Eliquis ; no recent falls Assessment & Plan (04/06/2024 8:06 PM POSTAL TRANSPORTATION CLERK): Rate controlled; continue metoprolol, amiodarone, Eliquis Assessment & Plan (03/31/2024 2:29 PM POSTAL TRANSPORTATION CLERK): Rate controlled on metoprolol, amiodarone; continue b.i.d. Eliquis Assessment & Plan (03/20/2024 8:09 PM POSTAL TRANSPORTATION CLERK): Stable on metoprolol, amiodarone and eliquis, conitnue [...] 10/06/2022 Assessment & Plan (04/16/2025 9:45 AM POSTAL TRANSPORTATION CLERK): Stable, On chronic HD prior to CVA Continue treatments at [facility] Continue calcium acetate Encourage renal diet with supplements Weekly labs per HD Assessment & Plan (04/08/2025 4:05 PM POSTAL TRANSPORTATION CLERK): Stable, On chronic HD prior to CVA Continue treatments at [facility] Continue calcium acetate Continue Renal diet, offer supplements Weekly labs per HD Assessment & Plan (04/01/2025 8:58 PM POSTAL TRANSPORTATION CLERK): On chronic HD prior to CVA Continue treatments at [facility] Continue calcium acetate Renal diet, offer supplements Weekly labs per HD Assessment & Plan (03/25/2025 4:39 PM POSTAL TRANSPORTATION CLERK): Chronic, stable Continue treatments Sunday/Sunday/Sunday Nephrology to follow while at facility Assessment & Plan (04/28/2024 2:26 PM POSTAL TRANSPORTATION CLERK): Continue treatments outpatient MWF, epogen on HD days, f/u with nephrology Assessment & Plan (04/09/2024 1:54 PM POSTAL TRANSPORTATION CLERK): Tolerating HD MWF, at times using p.r.n. lorazepam with HD treatment, anxiety during access. Monitor electrolytes and weight Continue Epogen Assessment & Plan (04/06/2024 8:08 PM POSTAL TRANSPORTATION CLERK): Continue HD MWF, p.r.n. lorazepam with HD treatment. Monitor electrolytes and weight Continue Epogen Assessment & Plan (03/31/2024 2:26 PM POSTAL TRANSPORTATION CLERK): Continue HD MWF, continues to use p.r.n. lorazepam with HD treatments; daughter states this is helping,. Monitor electrolytes and weight Continue Epogen Assessment & Plan (03/20/2024 8:08 PM POSTAL TRANSPORTATION CLERK): Continue HD MWF, continue to monitor electrolytes and weight, may use p.r.n. lorazepam with HD treatments; no reports of recent agitation with treatments Assessment & Plan (03/15/2024 10:52 AM POSTAL TRANSPORTATION CLERK): Continue HD MWF, continue to monitor electrolytes [...] 3:59 PM CDT): Receiving treatments MWF at [facility], intermittent anxiety, increase zyprexa [...] 5:55 PM CDT): Continue treatments MWF at [facility], TID calcium acetate, nephrology following, nepro tube feeds ordered, starting on jevity on admission due to no nepro available Assessment & Plan (01/18/2024 7:41 AM CDT): Continue with dialysis 3 times a week. Continue calcium acetate. Labs with dialysis. Preoperative cardiovascular examination 09/20/19 22 Chronic heart failure with preserved ejection fr action 07/02/2019 Assessment & Plan (03/25/2025 4:39 PM POSTAL TRANSPORTATION CLERK): Chronic, stable Euvolemic on exam Continue metoprolol succinate 50 mg 1 capsule by mouth once daily Assessment & Plan (04/28/2024 2:26 PM POSTAL TRANSPORTATION CLERK): Stable, continue metoprolol, monitor weights with HD Assessment & Plan (03/20/2024 8:08 PM POSTAL TRANSPORTATION CLERK): Stable on exam, continue metoprolol, monitor I/O, [...] 02/04 Assessment & Plan (04/06/2024 8:06 PM POSTAL TRANSPORTATION CLERK): Weight is stable since rehab admission, continue exercise as tolerated, RD following Assessment & Plan (03/20/2024 8:09 PM POSTAL TRANSPORTATION CLERK): Mobility is improving, recently stopped TF and [...] 02/04 Assessment & Plan (04/08/2025 4:08 PM POSTAL TRANSPORTATION CLERK): Stable, euvolemic appearing Continue isosorbide, hydralazine, metoprolol for BP goal <140/<90 HD MWF Assessment & Plan (04/01/2025 9:10 PM POSTAL TRANSPORTATION CLERK): Continue isosorbide, hydralazine, metoprolol for BP goal <140/<90 Assessment & Plan (04/13/2024 12:48 PM POSTAL TRANSPORTATION CLERK): Stable/compensated, continue HD treatments, weekly weights, metoprolol, statin amio, eliquis Assessment & Plan (03/20/2024 8:08 PM POSTAL TRANSPORTATION CLERK): Stable on metoprolol and amiodarone, continue HD [...] 2 diabetes mellitus ([facility]) 05/20/2013 Overview (08/11/2016): DMII WO CMP UNCNTRLD Assessment & Plan (04/08/2025 4:05 PM POSTAL TRANSPORTATION CLERK): Well controlled on lantus 18 units hs with mealtime SSI continue accuchecks ac and hs Encourage DM Diet No recent A1c for review Assessment & Plan (04/13/2024 12:48 PM POSTAL TRANSPORTATION CLERK): Well controlled on lantus 18 units hs with mealtime SSI, continue accuchecks ac and hs Assessment & Plan (03/15/2024 10:54 AM POSTAL TRANSPORTATION CLERK): Glucose logs reviewed continue lantus 18 units [...] NOS Assessment & Plan (03/25/2025 4:39 PM POSTAL TRANSPORTATION CLERK): Chronic, not at goal Patient with elevated systolics, will continue to monitor Continue hydralazine 25 mg by mouth t.i.d., Imdur 30 mg by mouth daily, and metoprolol Plan to increase hydralazine doses to 50 mg t.i.d. if needed Assessment & Plan (04/28/2024 2:28 PM POSTAL TRANSPORTATION CLERK): Continue Lantus 18 units HS with mealtime SSI and daughter will assist with med administration Bp stable on metoprolol, monitor for BP goal ,140/<90 Continue accuchecks ac and hs Assessment & Plan (03/31/2024 2:28 PM POSTAL TRANSPORTATION CLERK): Continue Lantus 18 units HS with mealtime SSI, glucose 236 this a.m., evening glucose 170, continue diabetic diet. BP stable on metoprolol Assessment & Plan (03/15/2024 10:53 AM POSTAL TRANSPORTATION CLERK): BP stable on metoprolol 50mg daily, continue [...] NOS Assessment & Plan (03/25/2025 4:39 PM POSTAL TRANSPORTATION CLERK): Chronic, stable Continue levothyroxine 200 mcg 1 tablet by mouth daily Assessment & Plan (04/13/2024 12:51 PM POSTAL TRANSPORTATION CLERK): Subclinical hypothyroidism with TSH trending up to 92, encourage appropriate administration of medication in early a.m. on empty stomach, Synthroid increased to 200 mcg daily at previous visit with plan to repeat ths in 6 weeks, T3 and T4 normal Assessment & Plan (03/31/2024 2:30 PM POSTAL TRANSPORTATION CLERK): Subclinical hypothyroidism with TSH trending up to 92, encourage appropriate administration of medication in early a.m. on empty stomach, Synthroid increased to 200 mcg daily Assessment & Plan (03/20/2024 8:09 PM POSTAL TRANSPORTATION CLERK): Inpatient workup with Tsh elevated with normal t4, ensure medication administration appropriate early am on empty stomach; repeat TSH this week Assessment & Plan (03/15/2024 10:54 AM POSTAL TRANSPORTATION CLERK): Inpatient workup with Tsh elevated with normal [...] on room air to complete PO abx, J2EE JAVA DEVELOPER to follow, DC on prn duonebs, likely could DC Urinary tract infection without hematuria 05/11/2021 02/01/2024 Hyperlipidemia 04/22/2012 09/19/2021 Overview (08/10/2016): HYPERLIPIDEMIA NEC/NOS Encounters Date Type Department Care Team Description 04/15/2025 Telephone [facility] Post Acute Care [address] [phone] Jenny Montano MA 04/10/2025 4:19 PM POSTAL TRANSPORTATION CLERK - 04/10/2025 7:58 PM POSTAL TRANSPORTATION CLERK Emergency [address] [address] Gwen Bonilla MD 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 (Primary Dx) Discharge Disposition: Discharge to home or self care 04/09/2025 NH/SNF Visit [facility] Post Acute Care [address] [phone] Maggi Murillo NP 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 (HCC) (Primary Dx); Acute cystitis without hematuria; ESRD on hemodialysis (HCC); Paroxysmal atrial fibrillation (HCC); Type 2 diabetes mellitus with chronic kidney disease on chronic dialysis, with long-term current use of insulin (HCC); Wound of right foot 04/01/2025 NH/SNF Visit [facility] Medical [facility] Post [address] [phone] Maggi Murillo NP 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 (HCC) (Primary Dx); ESRD on hemodialysis (HCC); Acute cystitis without hematuria; Mixed diabetic hyperlipidemia associated with type 2 diabetes mellitus (CMS/HCC) (HCC); Hypertensive heart disease with chronic diastolic congestive heart failure (HCC); Paroxysmal atrial fibrillation (HCC) 03/26/2025 NH/SNF Visit [facility] Medical [facility] Post Acute [address] [phone] Maggi Murillo NP Acute cystitis without hematuria (Primary Dx); CVA, old, aphasia; ESRD on hemodialysis (HCC); Wound of right foot; Type 2 diabetes mellitus with chronic kidney disease on chronic dialysis, with long-term current use of insulin (HCC); Hypertensive heart disease with chronic diastolic congestive heart failure (HCC); Paroxysmal atrial fibrillation (HCC) 03/25/2025 NH/SNF Visit [facility] Medical [facility] Post [address] [phone] Alejandra Naranjo MD Acute cerebrovascular accident (CVA) [...] 0.6 oz pur e alcohol) [facility] Utilities Answer Date Recorded In [...] often do you attend chur ch or anabaptist services? Never 02/26/2024 Do you belong to any clubs o r organizations such as buddhist groups, unions, fraternal or athletic groups, or [...] place to sleep or slept in a [place] (including now)? No 05/13/2021 Housing Stability Vital Sign Answer Yonathan e Recorded In the last 12 months, was t here a time when you were not able to pay the mortgage or rent on time? No 02/26/2024 In the past 12 months, how m any times have you moved where you were living? 0 02/26/2024 At any time in the past 12 m [facility], were you homeless or living in a [place] (including now)? No 02/26/2024 Personal Safety Answer Date Recorded Have you ever been in or are you currently in a harmful physical or emotional relationship or is someone making you feel afraid or unsafe? Patient unable to answer 04/10/2025 Comments No Sex and Gender Information Value Date Recorded Sex Assigned at Not on file Legal Sex Female 10:22 AM POSTAL TRANSPORTATION CLERK Gender Identity Not on file Sexual Orientation Not on file Last Filed Vital Signs Vital Sign Reading Time Taken Comments Blood Pressure 189/79 04/10/2025 6:45 PM POSTAL TRANSPORTATION CLERK Pulse 69 04/10/2025 6:45 PM POSTAL TRANSPORTATION CLERK Temperature 36.2 C (97.2 F) 04/10/2025 4:20 PM POSTAL TRANSPORTATION CLERK Respiratory Rate 18 04/10/2025 6:45 PM POSTAL TRANSPORTATION CLERK Oxygen Saturation 95% 04/10/2025 6:45 PM POSTAL TRANSPORTATION CLERK Inhaled Oxygen Concentration - - Weight 87.6 kg (193 lb 2 oz) 04/10/2025 4:30 PM POSTAL TRANSPORTATION CLERK Height 162.6 cm (5' 4) 07/01/2024 9:38 AM POSTAL TRANSPORTATION CLERK Body Mass Index 33.15 07/01/2024 9:38 AM POSTAL TRANSPORTATION CLERK Plan of Treatment Health Maintenance Due Date [...] Diagnosis Comments EGFR STAT 04/10/2025 4:43 PM POSTAL TRANSPORTATION CLERK DIFFERENTIAL AUTO STAT 04/10/2025 4:4 3 PM POSTAL TRANSPORTATION CLERK APTT STAT 04/10/2025 4:43 PM POSTAL TRANSPORTATION CLERK PROTIME-INR Routine 04/10/2025 4:43 PM POSTAL TRANSPORTATION CLERK COMPREHENSIVE METABOLIC PANEL STAT 04/10/2025 4:43 PM POSTAL TRANSPORTATION CLERK CBC WITH AUTO DIFFERENTIAL STAT 04/10/2025 4:43 PM POSTAL TRANSPORTATION CLERK POCT LIPID PANEL Routine 07/01/2024 9:57 AM POSTAL TRANSPORTATION CLERK Need for lipid screening HEMOGLOBIN A1C Routine 02/27/2024 5:59 AM CDT HEPATITIS PANEL, ACUTE STAT 3:59 PM POSTAL TRANSPORTATION CLERK from Last 3 Months or Most Recently Relevant to Health Maintenance Results * (ABNORMAL) eGFR (04/10/2025 4:43 PM POSTAL TRANSPORTATION CLERK) eGFR 11(L) >=60 mL/min/1. 73 m2 Comment: [...] last reviewed 2021. Blood 04/10/2025 4:43 PM POSTAL TRANSPORTATION CLERK 04/10/2025 4:46 PM POSTAL TRANSPORTATION CLERK us Gwen Bonilla MD LAB BLOOD ORDERABLES F inal Result [facility] [address] [facility] Department [place] [address] * (ABNORMAL) Differential, auto (04/10/2025 4:43 PM POSTAL TRANSPORTATION CLERK) Neutrophil abs 5.77 1.50 - 6.50 K/cumm Imm gran abs 0.01 0.00 - 0.10 K/cumm [facility] Lymphocyte abs 1.03 0.80 - 3.30 K/cumm [facility] Monocyte abs 0.78 0.20 - 0.80 K/cumm [facility] Eosinophil abs 0.51(H) 0.00 - 0.50 K/cumm [facility] Basophil abs 0.03 0.00 - 0.10 K/cumm [facility] Neutrophil pct 70.9 % [facility] Comment: Interpretive Data Percent cell count reference ranges are not reported, since discordance with absolute values may lead to misinterpretation of CBC data. Current Interpretive Data was last revised on 2017. Imm gran pct 0.1 % [facility] Comment: Interpretive Data Percent cell count reference ranges are not reported, since discordance with absolute values may lead to misinterpretation of CBC data. Current Interpretive Data was last revised on 2017. Lymphocyte pct 12.7 % [facility] Comment: Interpretive Data Percent cell count reference ranges are not reported, since discordance with absolute values may lead to misinterpretation of CBC data. Current Interpretive Data was last revised on 2017. Monocyte pct 9.6 % [facility] Comment: Interpretive Data Percent cell count reference ranges are not reported, since discordance with absolute values may lead to misinterpretation of CBC data. Current Interpretive Data was last revised on 2017. Eosinophil pct 6.3 % [facility] Comment: Interpretive Data Percent cell count reference ranges are not reported, since discordance with absolute values may lead to misinterpretation of CBC data. Current Interpretive Data was last revised on 2017. Basophil pct 0.4 % [facility] Comment: Interpretive Data Percent cell count reference ranges are not reported, since discordance with absolute values may lead to misinterpretation of CBC data. Current Interpretive Data was last revised on 2017. Blood 04/10/2025 4:43 PM POSTAL TRANSPORTATION CLERK 04/10/2025 4:46 PM POSTAL TRANSPORTATION CLERK Gwen Bonilla MD LAB BLOOD ORDERABLES F inal Result Performing Organization Address [facility] Co de Phone Number [address] [address] * (ABNORMAL) CBC with auto differential (04/10/2025 4:43 PM POSTAL TRANSPORTATION CLERK) Pathologist [facility] WBC 8.13 3.80 - 9.90 K/cumm Hgb 8.0(L) 11.9 - 15.5 g/dL [facility] Hct 26.6(L) 35.6 - 45.5 % [facility] Plt 285 150 - 400 K/cumm [facility] MPV 9.6 9.1 - 12.3 fL [facility] RBC 3.05(L) 3.90 - 5.20 M/cumm [facility] MCV 87.2 81.3 - 96.4 fL [facility] MCH 26.2(L) 27.1 - 33.3 pg [facility] MCHC 30.1(L) 32.3 - 35.7 g/dL [facility] RDW CV 17.4(H) 11.1 - 14.9 % [facility] RDW SD 55.4(H) 35.7 - 48.1 fL [facility] NRBC abs 0.00 0.00 - 0.01 K/cumm [facility] Blood 04/10/2025 4:43 PM POSTAL TRANSPORTATION CLERK 04/10/2025 4:46 PM POSTAL TRANSPORTATION CLERK Gwen Bonilla MD LAB BLOOD ORDERABLES F inal Result Performing Organization Address City/[facility] Co de Phone Number [address] [place] [address] * (ABNORMAL) aPTT (04/10/2025 4:43 PM POSTAL TRANSPORTATION CLERK) [facility] aPTT 42(H) 22 - 37 sec Comment: Interpretive data aPTT test has not been evaluated for monitoring heparin therapy. The anti-Xa is the preferred test. Current interpretive data was last revised on 2019. Blood 04/10/2025 4:43 PM POSTAL TRANSPORTATION CLERK 04/10/2025 4:46 PM POSTAL TRANSPORTATION CLERK Gwen Bonilla MD LAB BLOOD ORDERABLES F inal Result Performing Organization Address [facility] de Phone Number [address] [address] * (ABNORMAL) Protime-INR (04/10/2025 4:43 PM POSTAL TRANSPORTATION CLERK) Pathologist [facility] PT 18.70(H) 12.00 - 14.60 sec INR 1.56(H) 0.90 - 1.20 [facility] Comment: Interpretive data Oral anticoagulant therapeutic ranges: Venous thromboembolism prophylaxis or treatment: 2.0-3.0 CARDIOLOGY Standard range: 2.0-3.0 High-intensity range: 2.5-3.5 Refer to indication-specific guidelines for appropriate target ranges for prosthetic heart valve replacement. Current interpretive data was last revised on 2019. Blood 04/10/2025 4:43 PM POSTAL TRANSPORTATION CLERK 04/10/2025 4:46 PM POSTAL TRANSPORTATION CLERK Gwen Bonilla MD LAB BLOOD ORDERABLES F inal Result Performing Organization Address [facility] de Phone Number [address] [address] * (ABNORMAL) Comprehensive metabolic panel (04/10/2025 4:43 PM POSTAL TRANSPORTATION CLERK) Pathologist [facility] Sodium 137 135 - 145 mmol/L Potassium, pl 3.7 3.3 - 4.9 mmol/L [facility] Comment:Hemolyzed; Potassium value may be falsely elevated by as much as 1.0 mmol/L. Suggest redraw and reanalysis. Chloride 96(L) 97 - 110 mmol/L [facility] CO2 33(H) 22 - 32 mmol/L [facility] Anion gap 8 2 - 15 mmol/L [facility] BUN 25 6 - 25 mg/dL [facility] Creatinine 3.95(H) 0.60 - 1.10 mg/dL [facility] Glucose 132 70 - 199 mg/dL [facility] Comment: Interpretive Data Fasting glucose >/= [...] 2022. Calcium 8.8 8.5 - 10.3 mg/dL [facility] Bilirubin, total 0.6 0.1 - 1.2 mg/dL [facility] Protein, pl 7.6 6.5 - 8.5 g/dL [facility] Albumin 3.5 3.5 - 5.0 g/dL [facility] Alk phos 122 40 - 130 Units/L [facility] ALT 13 7 - 45 Units/L [facility] AST 25 10 - 45 Units/L [facility] Comment:Hemolyzed; result ma y be falsely elevated Blood 04/10/2025 4:43 PM POSTAL TRANSPORTATION CLERK 04/10/2025 4:46 PM POSTAL TRANSPORTATION CLERK Gwen Bonilla MD LAB BLOOD ORDERABLES F inal Result [facility] [address] [facility] Department [place] [address] * POCT lipid panel (07/01/2024 9:57 AM POSTAL TRANSPORTATION CLERK) Cholesterol, POC 138 mg/dL Comment:GLU = 176 HDL, POC 17 mg/dL Triglycerides, POC 168 mg/dL LDL Cholesterol POC 88 mg/dL Chol/HDL Ratio, POC 5.2 Non-HDL Cholesterol, POC 121 mg/dL Cholesterol Total, POC 138 mg/dL Capillary blood 07/01/2024 9 :57 AM POSTAL TRANSPORTATION CLERK Uriel Gillette MD POINT OF CARE TEST ORDER CANDIE Final Result * (ABNORMAL) Hemoglobin A1c (02/27/2024 5:59 AM CDT) Pathologist [facility] Hgb A1C 7.5(H) 4.0 - 5.6 % Estimated Average Glucose 169 mg/dL [facility] Comment: The ADA recommends reporting an estimated Average Glucose (eAG) with all Hemoglobin A1c results using the equation derived from a study of 507 normal and diabetic adults. Minority populations were underrepresented and children were not included. (Diabetes Care 31:6275-6865, 2008). The eAG is not equivalent to a fasting glucose. Blood 02/27/2024 5:59 AM CDT 02/27/2024 7:11 AM CDT Asif Delgadillo MD LAB BLOOD ORDERABLES Final Re sult [facility] [address] [facility] Department [place] [address] * Hepatitis panel, acute (05/08/2022 3:59 PM POSTAL TRANSPORTATION CLERK) [facility] Hep A IgM Nonreactive Nonreactive [facility] Comment: Interpretive Data: If Hep A IgM Ab is reported as Equivocal, a new sample should be drawn in two weeks for testing. Current interpretive data was last revised on 19. Hep B core IgM Nonreactive Nonreactive [facility] Comment: Interpretive Data If HepB Core IgM Ab is reported as Equivocal, a new sample should be drawn in two weeks for testing. Current interpretive data was last revised on 19. Hep C Ab Nonreactive Nonreactive [facility] Comment: Interpretive Data Nonreactive: Antibodies to HCV [...] revised on 2019. HepBsAg Nonreactive Nonreactive [facility] Blood 05/08/2022 3:59 PM POSTAL TRANSPORTATION CLERK 05/08/2022 3:59 PM POSTAL TRANSPORTATION CLERK Mellissa Garcia DO LAB MICROBIOLOGY - GENERAL ORD ERABLES Final Result [facility] [address] [place] [address] from Last 3 Months or Most Recently Relevant to Health Maintenance Insurance MEDICARE [facility] MEDICARE [facility] MEDICARE SUPPLEMENT Advance Directives For more information, please contact: [phone] Documents on File Type Date Recorded Patient Shank Paperer Expl anation ADVANCE DIRECTIVE 03/04/2024 10:[address] - Phys Order for PT Preferences * Full Code (Latest Code Status on File) Date Activated Date Inactivated Comments 02/25/2024 5:55 PM 03/03/2024 4:42 PM * Full Code Date Activated Date Inactivated Comments 05/11/2021 3:52 AM 05/14/2021 8:52 PM Care Teams Manager Of Training Relationship Specialty Start Date End Date Rikki Ameqzuita MD [address] [facility] [address] [place] [address] PCP - General Family Medicine 07/01/24 Mona Currie MD PhD Medical Oncologist/Dry Cleaning Teacher Medical Oncology 01/07/21 Sammy Shepard MD Consulting Physician Nephrology 05/14/21
--- OUTSIDE RECORDS SUMMARY | 2025-04-23 15:09 | XMS_ITS | Patient Health Record ---
Author Organization [facility] [employer] Address [address] [place] [address] Care Team Providers Care Clinical Trainer Name Role Phone Nighat Live Unavailable [phone] Reason For Referral No Information Medications Medication SIG (Take, Route, Frequency, Duration) Notes Start Date End Date Status Potassium Chloride ER 10 MEQ Tablet Extended Release Oral Active Pravastatin Sodium 10 MG Tablet Oral Active Doxycycline Hyclate 100 MG Tablet Oral Active traMADol HCl 50 MG Tablet Oral Active Furosemide 40 MG Tablet Oral Active Etsadbqz-Mfruqptqk-L exameth 3.5-13672-5.1 Ointment Ophthalmic Active Sertraline HCl 50 MG [...] mL) INSULIN PEN (ML) SUBCUTANEOUS *Reorder from [facility] for eRx and Interaction Alerts* Active Ventolin HFA 108 (90 Base) MCG/ACT Aerosol Solution Inhalation Active Fluconazole 150 MG Tablet Oral Active Fluticasone Propionate Diskus 50 MCG/ACT Aerosol Powder Breath Activated Inhalation *Reorder from [employer] for eRx and Interaction Alerts* Active Synthroid 200 MCG Tablet Oral Active Plan Of Treatment No Information
--- OUTSIDE RECORDS SUMMARY | 2025-04-23 15:09 | XMS_ITS | Clinical Summary ---
Author Organization [facility] [employer] Address [address] [facility] [place] [address] Care Team Providers Care Legal Associate Name Role Phone Rikki Amezquita MD Primary Care Provider [phone] Source Comments [facility] [employer],non-owned Affiliates and Associated Physician Practices is amultiple site organization consisting of ambulatory clinics and hospital sitesin [place], [place], [place] and [place]. This disclosure is being madepursuant to the Care Everywhere program and may not contain all information available regarding this patient. Last updated 18.[facility] [employer] Allergies Active Allergy Reactions Criticality Noted Date [...] fluticasone propionate (Flonase) 50 MCG/ACT nasal spray [place] 2 (two) sprays into the nose once [...] as needed Discontin ued(List Clean-Up) nystatin (Mycostatin) 719965 UNIT/GM powder Apply 1 Application to affected [...] Department Care Team Description 04/01/2025 Orders Only [facility] [address] [place] [address], [address] [place] [address] Paul Chandler MD Claudication of lower extremity ; Claudication of left upper extremity due to atherosclerosis 03/31/2025 10:00 AM RECREATION THERAPY AIDES TEACHER Office Visit [facility] [address] [place] [address], [facility] [address] [place] [address] Paul Chandler MD PVD (peripheral vascular disease) (Primary Dx) 03/31/2025 Travel 03/03/2025 1:10 PM CDT - 03/03/2025 11:59 PM CDT Hospital Encounter [facility] [address] [place] [address], [address] [place] [address] Fernando Couch MD Vo, MD Abbe Discharge [...] Oxygen Concentration 40% 04/12/2022 3 :16 PM RECREATION THERAPY AIDES TEACHER Weight 98 kg (216 lb 0.8 oz) 03/31/2025 10:28 AM RECREATION THERAPY AIDES TEACHER Height 165.1 cm (5' 5) 03/31/2025 10:28 AM RECREATION THERAPY AIDES TEACHER Body Mass Index 35.95 03/31/2025 10:28 AM RECREATION THERAPY AIDES TEACHER Plan of Treatment Upcoming Encounters Date Type Department Care Team (Late st Contact Info) Description 04/28/2025 1:00 PM RECREATION THERAPY AIDES TEACHER Appointment [facility] Health Imaging Services - CT Scan [address] [place] [address] [place] [id number] [place] [address] [address] [place] [address] 06/23/2025 2:45 PM RECREATION THERAPY AIDES TEACHER Appointment [facility] Health Vascular Services [address] [facility], [address] [place] [address] Health Maintenance Due Date Last [...] DEPRESSION SCREENING 05/07/2024 COVID-19 VACCINE ( - season) 2025 04/09/2021, 07/29/2020, 07/01/2020, Additional history [...] CDT Abbe Monterroso MD 03/23/2025 12:11 PM [facility] Patient Name: Gregoria Rae [...] was advanced under fluoroscopy and a 5 Slovak catheter placed. Digital subtraction images were obtained [...] Final from Last 3 Months Insurance MEDICARE [employer] MEDICARE Advance Directives * Full Code (Latest Code Status on File) Date Activated Date Inactivated Comments 05/14/2022 8:26 AM 05/28/2022 12:06 PM Care Teams Legal Associate Relationship Specialty Start Date End Date Rikki Amezquita MD [address] [place] [address] PCP - General 11/28/21
--- OUTSIDE RECORDS SUMMARY | 2025-04-23 15:09 | XMS_ITS | Clinical Summary ---
Author Organization [facility] Address [address] [place] [address] Care Team Providers Care Reptile Farmer Name Role Phone Family [facility] Rostovclaribel [...] Comments Blood Pressure 129/59 05/28/2022 8:00 AM CABLE TOWER OPERATOR Pulse 76 05/28/2022 8:00 AM CABLE TOWER OPERATOR Temperature 36.7 C (98 F) 05/28/2022 8:00 AM CABLE TOWER OPERATOR Respiratory Rate 20 05/28/2022 8:00 AM CABLE TOWER OPERATOR Oxygen Saturation 96% 05/28/2022 8:00 AM CABLE TOWER OPERATOR Inhaled Oxygen Concentration - - Weight 111.6 kg (246 lb) 05/28/2022 6:37 AM CABLE TOWER OPERATOR Height 162.6 cm (5' 4) 05/13/2022 5:19 PM CABLE TOWER OPERATOR Body Mass Index 42.23 05/13/2022 5:19 PM CABLE TOWER OPERATOR Plan of Treatment Health Maintenance Due [...] 6:45 PM 05/13/2022 6:03 PM Care Teams Reptile Farmer Relationship Specialty Start Date End Date Alirio [facility] [address] [place] [address] [facility] [address] [place] [id number] PCP - General 05/14/22
--- OUTSIDE RECORDS SUMMARY | 2025-04-23 15:09 | XMS_ITS | Patient Health Record ---
Author Organization [facility] Address [address] [place], [place] [id number] Care Team Providers Care Roofing Superintendent Name Role Phone Brayan Amezquita Primary Care Provider Unavail able Sammy Shepard Unavailable [phone] Allergies No Known Allergies Reason For Referral [...] Notes Problem Chronic kidney disease stage 2 (523129195) Chronic kidney disease (CKD), stage II (mild) (N18.2) Active confirmed Problem Essential hypertension (23689450) Benign essential HTN (I10) Active confirmed Problem 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 (282081233093473) 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) Active confirmed Problem Essential hypertension (64055600) Essential (primary) hypertension (I10) Active confirmed Problem Chronic kidney disease stage 3A (disorder) (562597052) Chronic kidney disease, stage 3a (N18.31) Active [...] Coverage End Date Medicare [place] [address] [address] [place] [address] [id number] Gregoria Rae Self - patient is the insured [facility] [address] [place] [address] [id number] Gregoria Rae Self - patient is the insured Medical (General) History Medical History History ICD Code restless leg syndrome DM HTN CKD Surgical History Surgery Date(Month/Year) thryoidectomy cholecystectomy
--- OUTSIDE RECORDS SUMMARY | 2025-04-23 15:11 | XMS_ITS | Clinical Summary ---
Author Organization [facility] Address [address] [place] [address] Care Team Providers Care Pie Icer Machine Name Role Phone Unavailable Primary Care Provider [...]
[2025-04-23 16:46] LABS: Appearance Urine Turbid (Clear); Specific Grav Ur 1.020 (1.001-1.035)
[2025-04-23 16:47] LABS: Add Urine Microscopic? YES; Glucose Urine UA Negative (Negative); Leukocyte Esterase Ur 2+ LEU/UL (Negative); Nitrate Urine Negative (Negative)
[2025-04-23 17:05] VITALS: BP 121/84; PULSE 48; RESP 20; O2SAT 97
[2025-04-23] MEDS: cefTRIAXone 1 GM in SODIUM CHLORIDE 0.9% IV 50 ML 100 ML IVPB (17:14)
--- NOTE | 2025-04-23 18:36 | WPCEDHO ---
ED Hand Off Checklist All vitals saved:yes IV Site documented:yes All med administrations documented:yes Triage Note Triage Note Pt to ED from home after GLF with 04/23/25 13:43 unknown time on ground. Pt lives at home with her . 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 Allergies nickel Allergy (Intermediate, Verified 04/16/25 14:48) hives and itchy rash Sulfa (Sulfonamide Antibiotics) Allergy (Intermediate, Verified 04/16/25 14:48) Urticaria and hives Calcium Channel Blocking Agents-Dih Adverse Reaction (Intermediate, Verified 04/16/25 14:48) STATES CANNOT TAKE SINCE SHE HAS ASTHMA diphenhydramine Adverse Reaction (Intermediate, Verified 04/16/25 14:48) restless legs nifedipine Adverse Reaction (Intermediate, Verified 04/16/25 14:48) palpitations Easozsr-GPC-BiG Reductase Inhibitor (Kqcjswj-Ram-Cie Reductase Inhibitor) Adverse Reaction (Intermediate, Verified 04/16/25 14:48) muscle cramps CALCIUMCHANNEL Allergy (Unknown, Uncoded 04/20/25 11:03) SEE COMMIT Family History (Last Reviewed 04/23/25 @ 13:55 by Rafat Sales DO) Father Hypertension Family history of coronary artery disease Sibling Hypertension Family history of coronary artery disease Mother Cerebrovascular accident Other Asthma Depression Family history of Alzheimer's disease Family history of arthritis Family history of cardiovascular disease Family history of lymphoma Family history of obesity Family history of seizure disorder Active Medications including assessments/comments Ceftriaxone Sodium 1 gm/ (Sodium Chloride) 50 mls @ 100 mls/hr IVPB Q24H ALINA Last Infusion: 04/23/25 17:40 Dose: Infused Documented By: KLM Infusion/Titration Document 04/23/25 17:40 KLM (Rec: 04/23/25 17:40 KLM [id number]) Intake Intake 50 Cumulative Intake ( 50 bag) Cumulative Intake ( 50 Rx) Container Volume 0 Waste Amount 0 Dosing Infusion Rate 0 Cumulative Dose 1 Increase/Decrease Infused Elapsed Time Elapsed Time ( 26m minutes) Admin: 04/23/25 17:14 Dose: 100 mls/hr Documented By: CORDELIA Infusion/Titration Document 04/23/25 17:14 CORDELIA (Rec: 04/23/25 17:15 CORDELIA [id number]) Intake IV Site Peripheral Access Right Antecubital Container Volume 50 Waste Amount 0 Dosing Infusion Rate 100 Increase/Decrease Started Elapsed Time Elapsed Time ( 0m minutes) Interventions/Assessments IV / Saline Lock, Insert Start: 04/23/25 17:14 Freq: Status: Active Protocol: Document 04/23/25 17:14 CORDELIA (Rec: 04/23/25 17:15 CORDELIA [id number]) IV Assessment Peripheral Access Right Antecubital IV Catheter Access Initiated IV Insertion Date 04/23/25 IV Insertion Time 17:15 Catheter Gauge 20 IV Insertion 1 Attempts Ultrasound Used for No Placement IV Site Assessment WNL IV Care and WNL Maintenance IV Line Assessment Start: 04/23/25 13:33 Freq: Status: Active Protocol: Document 04/23/25 14:31 DGC (Rec: 04/23/25 14:32 DGC [id number]) IV Assessment Peripheral Access Right Foot IV Catheter Access Initiated IV Insertion Date 04/23/25 IV Insertion Time 14:25 Catheter Gauge 22 IV Insertion 1 Attempts Ultrasound Used for Yes: 1.75 inserted Placement IV Site Assessment WNL IV Care and WNL,Dressing Applied, Dated, Timed, and Initialed Maintenance Last Vital Signs Temperature 98.2 F 04/23/25 13:43 Pulse Rate 48 L 04/23/25 17:05 Respiratory Rate 20 04/23/25 17:05 Pulse Oximetry 97 04/23/25 17:05 Blood Pressure 121/84 04/23/25 17:05 Blood Pressure Mean 96 04/23/25 17:05 Oxygen Delivery Room Air 04/23/25 13:43 Weight 85.7 kg 04/23/25 13:43 Last Result - Abnormals Only WBC 10.9 K/mm3 (4.5-10.0) H 04/23/25 14:30 RBC 3.01 M/mm3 (4.2-5.4) L 04/23/25 14:30 Hgb 7.9 g/dL (12.0-15.0) L 04/23/25 14:30 Hct 26.7 % (37.0-47.0) L 04/23/25 14:30 MCHC 29.6 g/dl (32-36) L 04/23/25 14:30 RDW 19.2 % (11.5-14.5) H 04/23/25 14:30 Immature Gran % (Auto) 0.7 % (0-0.5) H 04/23/25 14:30 Neut % (Auto) 79.0 % (45.5-73.1) H 04/23/25 14:30 Lymph % (Auto) 9.1 % (18.3-44.2) L 04/23/25 14:30 Owen % (Auto) 10.4 % (2.6-8.5) H 04/23/25 14:30 Owen # (Auto) 1.1 K/mm3 (0.1-0.6) H 04/23/25 14:30 Abs Immat Gran (auto) 0.08 K/mm3 (0.00-0.031) H 04/23/25 14:30 Absolute Neuts (auto) 8.6 K/mm3 (1.3-6.7) H 04/23/25 14:30 PT 24.6 Seconds (11.1-14.7) H 04/23/25 14:30 Sodium 136 mmol/L (137-145) L 04/23/25 14:30 Chloride 97 mmol/L (98-107) L 04/23/25 14:30 BUN 31 mg/dL (7-17) H 04/23/25 14:30 Creatinine 5.63 mg/dL (0.7-1.0) H 04/23/25 14:30 Estimated GFR 7 (59-) L 04/23/25 14:30 Glucose 139 mg/dL (65-110) H 04/23/25 14:30 Lactic Acid 2.1 mmol/L (0.7-2.0) H 04/23/25 17:16 Calcium 8.2 mg/dL (8.4-10.2) L 04/23/25 14:30 Albumin 3.4 g/dL (3.5-5.1) L 04/23/25 14:30 Urine Appearance Turbid (Clear) H 04/23/25 16:20 Urine Protein 4+ mg/dL (Negative) H 04/23/25 16:20 Ur Blood (Man) 2+ (Negative) H 04/23/25 16:20 Leukocyte Esterase Rfl 2+ ERICK/UL (Negative) H 04/23/25 16:20
[2025-04-23 19:48] VITALS: BMI 33.3
--- NOTE | 2025-04-23 19:57 | ADMGEN ---
This patient, Gregoria Rae, was admitted to [facility] Surg Room 305-01. Patient/family oriented to hospital policies and general routines including ID bracelet, bed and alarms, visiting hours, pain management, procedures, bathroom and other care routines, personal items, smoking policy, room service/diet, and visiting hours. Information on how to activate the Rapid Response Team has been discussed. Patient/Family are encouraged to report perceived risks to care and to ask questions if they do not understand what they are told or what they should do.
[2025-04-23 20:00] VITALS: BP 150/59; PULSE 50; RESP 16; TEMP 36.3; O2SAT 98
[2025-04-24] VITALS (29 sets, daily range): BP systolic 122–174; BP diastolic 49–95; PULSE 49–67; RESP 14–20; TEMP 35.7–37; O2SAT 95–100
[2025-04-24 02:16] LABS: Hemoglobin A1C 5.4 % (<5.7)
--- NOTE | 2025-04-24 05:09 | PM.IMHP2 ---
H&P: HPI History of Present Illness Date/Time: 04/24/25 05:09 Chief Complaint: Fall Narrative: This is a 74-year-old female patient who has a history of AFib, DVT, end-stage renal disease on dialysis, congestive heart failure, COPD diabetes and a history of CVA with expressive aphasia. The patient came in via EMS after an unwitnessed fall that occurred last night. The patient was down for unknown period of time. Her found her in the morning. Patient does have significant expressive aphasia. Her white count was found to be 10.9. Her H&H is 7.9 and 26.7. H&H is slightly lower than baseline. Sodium slightly low at 136. BUN 31 with a creatinine of 5.63 and GFR is 7. Blood sugar was 139. The patient is a dialysis patient. Lactic was 2.2 and then repeat was 2.1. Calcium was low at 8.2. Her urine is turbid with 4+ protein, 2+ urine blood, 2+ leukocyte esterase, and wbc's greater than 100. Urine bacteria unable to determine. Head CT was read as no acute intracranial abnormality. Cervical spine CT was read as no acute abnormality. Chest x-ray was read as probable mild interstitial pulmonary edema with persistent right midlung atelectasis in are scarring. No significant change from prior. Tib fib x-ray no cortical erosion of periosteal reaction to suggest osteitis. No other acute osseous abnormality. Polyarticular arthritis, moderate to severe in the medial compartment of the right knee. ER noted that the patient stated that she had 5 falls this past week. The patient was started on Rocephin in the emergency room. The patient is being admitted to inpatient status on the date of service of 04/24/2025. Review of Systems Review of Systems: ROS unobtainable: Yes unobtainable due to medical condition and unobtainable due to mental status [facility] Past Medical History Medical History (Updated 04/24/25 @ 07:29 by Naomi Nathan APRN) Obstructive sleep apnea End stage renal disease UTI (urinary tract infection) Femoral artery stenosis, right 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 Paroxysmal atrial fibrillation Bilateral primary osteoarthritis of knee Renal osteodystrophy DVT of lower extremity (deep venous thrombosis) Asthma-COPD overlap syndrome Left-sided cerebrovascular accident (CVA) (01/04/24) With residual left-sided visual neglect, profound expressive aphasia and right-sided hemiplegia ESRD on hemodialysis (02/17/22) Chronic anticoagulation Obstructive sleep apnea Hypothyroidism Insulin dependent type 2 diabetes mellitus Generalized anxiety disorder Chronic obstructive pulmonary disease Chronic diastolic (congestive) heart failure Coronary artery disease involving [place] heart without angina pectoris Depression GERD without esophagitis Peripheral polyneuropathy Surgical History Surgical History (Updated 04/24/25 @ 07:18 by Naomi Nathan APRN) H/O rectal polypectomy H/O thyroidectomy History of tracheostomy (04/24/22) With subsequent removal History of cataract extraction History of tonsillectomy History of cholecystectomy History of gastrostomy tube placement and removal Family History Family History Father Hypertension Family history of coronary artery disease Sibling Hypertension Family history of coronary artery disease Mother Cerebrovascular accident Other Asthma Depression Family history of Alzheimer's disease Family history of arthritis Family history of cardiovascular disease Family history of lymphoma Family history of obesity Family history of seizure disorder Social History Social History Social History: Surrogate medical decision maker: Anjum (spouse) or Gwen (daughter) Kyra. Code status: Do not intubate Smoking packs per day: 1 Smoking cigarettes per day: 20.0 Years smoked: 22 Smoking pack-years: 22.00 Smoking status: Former smoker Second hand tobacco smoke exposure: No Alcohol intake: unknown Alcohol use details: special occasions Substance use: never Substance use type: does not use Last use: 01/05/23 Lack of Transportation: No Lack of Food: Never True Current Housing: I Have Housing Concerned About Future Housing: No Difficulty Paying Gas/Electric Bills: No Difficulty Paying for Meds: No Currently Unemployed: No Education: High School Diploma/GED Difficulty w/ Childcare or Family Care: No Living arrangements: with family Occupation/Education: retired Spiritual care concerns: No Meds Home Medications and Allergies Home Medications ?Medication ?Instructions ?Recorded ?Confirmed ?Type albuterol sulfate 2.5 mg/3 mL 2.5 mg (3 mL) inhalation Q4-6H PRN 07/10/23 04/23/25 Rx (0.083 %) solution for nebulization shortness of breath or wheezing #90 mL Ventolin HFA 90 mcg/actuation See Rx Instructions .Route 05/20/24 04/23/25 Rx aerosol inhaler (albuterol sulfate) .COMPLEX #18 grams insulin aspart U-100 100 unit/mL See Rx Instructions .Route .COMPLEX 05/20/24 04/23/25 History (3 mL) subcutaneous pen (Novolog FlexPen U-100 Insulin aspart) metoprolol succinate 50 mg 50 mg PO QAM #90 tabs 05/20/24 04/23/25 Rx tablet,extended release 24 hr montelukast 10 mg tablet 10 mg PO DAILY #90 tabs 07/04/24 04/23/25 Rx budesonide-formoterol HFA 160 2 puff inhalation Q12H #10.2 grams 07/17/24 04/23/25 Rx mcg-4.5 mcg/actuation aerosol inhaler amiodarone 200 mg tablet 200 mg PO QAM 09/02/24 04/23/25 History atorvastatin 20 mg tablet (Lipitor) 20 mg PO HS #90 tabs 11/03/24 04/23/25 Rx trazodone 50 mg tablet 50 mg PO QHS #30 tabs 11/03/24 04/23/25 Rx escitalopram oxalate 5 mg tablet 5 mg PO DAILY #90 tabs 11/04/24 04/23/25 Rx (Lexapro) hydralazine 25 mg tablet 25 mg PO TID #270 tabs 12/04/24 04/23/25 Rx isosorbide mononitrate 30 mg 30 mg PO DAILY #90 tabs 03/02/25 04/23/25 Rx tablet,extended release 24 hr apixaban 2.5 mg tablet (Eliquis) 2.5 mg PO BID 03/08/25 04/23/25 History insulin glargine 100 unit/mL (3 18 unit (0.18 mL) subcut QPM #15 mL 03/12/25 04/23/25 Rx mL) subcutaneous pen (Lantus Solostar U-100 Insulin) calcium acetate 667 mg tablet 667 mg PO DAILY 03/16/25 04/23/25 History levothyroxine 200 mcg capsule 200 mcg PO DAILY 03/16/25 04/23/25 History lorazepam 0.5 mg tablet (Ativan) 0.5 mg PO BID PRN anxiety #60 tabs 03/16/25 04/23/25 Rx ropinirole 0.5 mg tablet 0.5 mg PO BID 03/16/25 04/23/25 History clindamycin HCl 300 mg capsule 300 mg PO Q6H #40 caps 04/20/25 04/23/25 Rx (Cleocin HCl) tramadol 25 mg tablet 25 mg PO Q12H pain #60 tabs 04/22/25 04/23/25 Rx colestipol 1 gram tablet 2 g PO DAILY 04/23/25 04/23/25 History Allergies Allergy/AdvReac Type Severity Reaction Status Date / Time nickel Allergy Intermediate hives and Verified 04/23/25 20:05 itchy rash Sulfa (Sulfonamide Allergy Intermediate Urticaria Verified 04/23/25 20:05 Antibiotics) and hives Calcium Channel Blocking AdvReac Intermediate STATES Verified 04/23/25 20:05 Agents-Dih CANNOT TAKE SINCE SHE HAS ASTHMA diphenhydramine AdvReac Intermediate restless Verified 04/23/25 20:05 legs nifedipine AdvReac Intermediate palpitation Verified 04/23/25 20:05 s Cykhlaz-DYP-FmP Reductase AdvReac Intermediate muscle Verified 04/23/25 20:05 Inhibitor (Yyqzvsh-Zmc-Hqf cramps Reductase Inhibitor) CALCIUMCHANNEL Allergy Unknown SEE COMMIT Uncoded 04/20/25 11:03 Vital Signs Vital Signs - 24 hr 04/23/25 13:43 04/23/25 17:05 04/23/25 20:00 Temperature 98.2 F 97.4 F L Pulse Rate 53 L 48 L 50 L Respiratory Rate 16 20 16 Blood Pressure 115/49 L 121/84 150/59 H Pulse Oximetry 100 97 98 Oxygen Delivery Room Air 04/24/25 00:00 Temperature 97.1 F L Pulse Rate 58 L Respiratory Rate 16 Blood Pressure 135/54 L Pulse Oximetry 100 Oxygen Delivery Exam Const: General: cooperative, awake, Physically active, average body habitus and well nourished Nutritional Appearance: average body habitus and well nourished Orientation/consciousness: oriented to person HENMT: Head: normal to inspection, No palpable skull fracture present, normocephalic, atraumatic and abrasion Ears: hearing grossly normal bilaterally Eyes: General: appearance normal, both eyes and all related structures Alignment and Position: alignment normal Periorbital: periorbital findings normal Eyelids: eyelids normal Neck: Neck: normal visual inspection, full ROM, no lymphadenopathy and trachea midline Resp: Effort & Inspection: normal respiratory effort Auscultation: clear to auscultation bilaterally Cardio: Palpation: normal PMI Rate: regular rate Rhythm: regular rhythm Heart sounds: S2 normal heart sound present GI: Inspection: normal to inspection Percussion: Yes normal to percussion Auscultation: normal bowel sounds Back/Spine/Pelvis: Back: no CVA tenderness Cervical Spine: cervical ROM normal Skin: General skin exam: normal color Lesions: no lesions Other: Left upper arm AV fistula with positive bruit and thrill. Large right diabetic ulcer noted to posterior ankle exposing the Achilles tendon. The area is approximately 5 by 7 with leong malodorous discharge. The area is unstageable. Erythema noted around the ulcerated area. Please see wound photio There is a dressing over the right forearm that I was unable to remove at this time and the nurse stated that it was a skin tear. Neuro: General: oriented to person, oriented to place, oriented to time and patient oriented x3 Extrem: General: normal to inspection Right upper extremity: normal to inspection and shoulder/upper arm Left upper extremity: normal to inspection and shoulder/upper arm Psych: Affect: normal affect Results Labs Labs: Short CBC 04/23/25 Range/Units 14:30 WBC 10.9 H (4.5-10.0) K/mm3 Hgb 7.9 L (12.0-15.0) g/dL Hct 26.7 L (37.0-47.0) % Plt Count 303 (150-375) k/mm3 BMP 04/23/25 14:30 Sodium 136 L Potassium 4.3 Chloride 97 L Carbon Dioxide 29 BUN 31 H Creatinine 5.63 H Glucose 139 H Calcium 8.2 L Cardiac Enzymes 04/23/25 Range/Units 14:30 Total Creatine Kinase 84 (30-135) U/L Liver Function 04/23/25 Range/Units 14:30 Total Bilirubin 1.1 (0.2-1.3) mg/dL AST 23 (14-36) U/L ALT 17 (6-35) U/L Alkaline Phosphatase 120 (38-126) U/L Albumin 3.4 L (3.5-5.1) g/dL Urine 04/23/25 Range/Units 16:20 Urine Color Other (Yellow) Urine Appearance Turbid H (Clear) Urine pH 7.0 (5.0-9.0) Ur Specific [place] 1.020 (1.001-1.035) Urine Protein 4+ H (Negative) mg/dL Urine Glucose (UA) Negative (Negative) mg/dL ECG Attestation: I personally reviewed and interpreted this ECG as follows: Interpretation: est Date: 2025-04-23 14:58:19 Measurements Intervals [place] Rate: 50 P: -11 VT: 178 QRS: 12 QRSD: 121 T: 89 QT: 477 QTc: 436 Interpretive Statements SINUS BRADYCARDIA INTRAVENTRICULAR CONDUCTION DELAY POSSIBLE ANTERIOR MYOCARDIAL INFARCTION , PROBABLY OLD BORDERLINE ST-T WAVE ABNORMALITY- INF/HIGH LAT LEADS BORDERLINE ECG Compared to ECG 03/07/2025 21:21:46 NO SIGNIFICANT CHANGE Electronically Signed On 04-23-2025 15:12:18 [employer]RO[employer] PROGRAMMER by Brannon Hatfield D.O. Imaging Chest x-ray: Radiologist's impression: ITS Impressions Head CT 04/23/25 14:01 Impression: 1.No acute intracranial abnormality. Cervical Spine CT 04/23/25 14:05 Impression: No acute abnormality. Chest X-Ray 04/23/25 14:20 IMPRESSION: 1. Probable mild interstitial pulmonary edema with persistent right midlung atelectasis and/or scarring. 2. No significant change from prior. Tibia/Fibula X-Ray 04/23/25 14:20 IMPRESSION: 1. No cortical erosions or periosteal reaction to suggest osteitis. No other acute osseous abnormality. 2. 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 Quality VTE Prophylaxis VTE prophylaxis: pharmacologic ordered Assessment and Plan Assessment and plan (1) Acute UTI: Code(s): N39.0 - Urinary tract infection, site not specified Status: Acute Assessment and Plan: -the patient was started on Rocephin in the emergency room. -blood in urine cultures are pending. -check daily lactic acid levels. -patient's blood pressure stable at 140 7/55 and heart rate is 54. She is afebrile at this time. Her white count is 10.9. -last month her urine culture grew mixed urogenital agusto. (2) Leg wound, right: Code(s): S81.801A - Unspecified open wound, right lower leg, initial encounter Status: Acute Assessment and Plan: -chronic wound to right lower extremity. -patient was started on vancomycin. -wound and blood cultures are pending. -wound Care has been consulted. -monitor lactic level. -patient was not given any IV fluids as she is a dialysis patient. -the patient is also on p.o. clindamycin from home please clarify if he patient is still taking this and for what purpose . Her lactic was 2.2 and then 2.1. (3) ESRD on hemodialysis: Code(s): N18.6 - End stage renal disease; Z99.2 - Dependence on renal dialysis Status: Acute Assessment and Plan: -left upper arm AV fistula has a positive bruit and thrill. -nephrology has been consulted. -continue to monitor magnesium phos and other electrolytes. -the patient has dialysis on Sunday outpatient. (4) Hypothyroidism (acquired): Onset Date: ~12/23/22 Code(s): E03.9 - Hypothyroidism, unspecified Status: Acute Assessment and Plan: -continue levothyroxine (5) Diabetes: Code(s): E11.9 - Type 2 diabetes mellitus without complications Status: Acute Assessment and Plan: -Accu-Cheks AC and HS with sliding scale insulin and hypoglycemic protocol. -diabetic diet -pharmacy to reduce long-acting home insulin by 20%. (6) COPD (chronic obstructive pulmonary disease): Qualifiers: COPD type: unspecified COPD Qualified Code(s): J44.9 - Chronic obstructive pulmonary disease, unspecified Code(s): J44.9 - Chronic obstructive pulmonary disease, unspecified Status: Acute Assessment and Plan: -continue with home inhalers including albuterol and budesonide. -continue singular (7) RAINA (obstructive sleep apnea): Code(s): G47.33 - Obstructive sleep apnea (adult) (pediatric) Status: Acute Assessment and Plan: -titrate CPAP to home settings (8) Generalized weakness: Code(s): R53.1 - Weakness Status: Acute Assessment and Plan: -PT and OT to evaluate patient. (9) Atrial fibrillation: Code(s): I48.91 - Unspecified atrial fibrillation Status: Chronic Assessment and Plan: -patient now in sinus bradycardia. -continue with metoprolol. Hold if heart rate less than 50. -continue with amiodarone -continue with apixaban -at this time patient's heart rate is 54 an EKG was sinus bradycardia. (10) Hyperlipidemia LDL goal <70: Code(s): E78.5 - Hyperlipidemia, unspecified Status: Acute Assessment and Plan: -continue with colestipol (11) Hypertension: Qualifiers: Hypertension type: unspecified Qualified Code(s): I10 - Essential (primary) hypertension Code(s): I10 - Essential (primary) hypertension Status: Chronic Assessment and Plan: -continue with hydralazine -continue with metoprolol if blood pressure allows. Currently blood pressure is 147/55. Hold if heart rate less than 50 (12) RLS (restless legs syndrome): Code(s): G25.81 - Restless legs syndrome Status: Acute Assessment and Plan: -continue to open her (13) Insomnia: Code(s): G47.00 - Insomnia, unspecified Status: Acute Assessment and Plan: -continue trazodone Plan I did speak with the pharmacist today and she has stated that the Infectious Disease pharmacist would take a look at the antibiotic and determine if clindamycin is on her home medication list needs to be continued. The patient has a history of DVT but is already apixaban.
--- NOTE | 2025-04-24 05:33 | WNDPHOTO ---
PHOTO ONLY - See Nursing Notes and/ or assessments for documentation.
[2025-04-24] MEDS: traMADol HCL (*CRX) 25 MG TABLET PO ×2 (05:48→21:21)
[2025-04-24] MEDS: LEVOTHYROXINE SODIUM 100 MCG TABLET 200 MCG PO (05:49)
[2025-04-24] MEDS: CLINDAMYCIN HCL 150 MG CAP 300 MG PO (05:50)
[2025-04-24 07:20] LABS: Hematocrit 26.0 % (37.0-47.0); Hemoglobin 7.6 g/dL (12.0-15.0); Immature Granulocyte Percent A 0.8 % (0-0.5); Lymphocytes Absolute Auto 1.12 K/mm3 (0.9-3.2); Mean Corpuscular HGB Conc 29.2 g/dl (32-36); Mean Corpuscular Hemoglobin 25.9 pg (26-34); Mean Corpuscular Volume 88.4 fl (80-100); Nucleated Red Blood Cells Absolute Auto 0.000 K/mm3 (0.0-0.012); Nucleated Red Blood Cells Perc 0.0 % (0.0-0.2); Platelet Count Result 289 k/mm3 (150-375); Red Blood Count 2.94 M/mm3 (4.2-5.4); White Blood Count 10.0 K/mm3 (4.5-10.0)
[2025-04-24 07:41] LABS: Anion Gap 13 mmol/L (4-12); Blood Urea Nitrogen 38 mg/dL (7-17); Calcium 8.1 mg/dL (8.4-10.2); Carbon Dioxide 25 mmol/L (22-30); Chloride 98 mmol/L (98-107); Creatine Kinase 62 U/L (30-135); Estimated CRCL calculation 8 ml/min; Estimated Glomerular Filt Rate 7; Glucose 120 mg/dL (65-110); Magnesium 1.9 mg/dL (1.6-2.3); Potassium 4.7 mmol/L (3.4-5.0); Sodium 136 mmol/L (137-145)
[2025-04-24 07:47] LABS: Anisocytosis 1+; Hypochromasia 1+; Schistocytes None Seen
[2025-04-24] MEDS: APIXABAN 2.5 MG TABLET PO ×2 (08:17→21:21)
[2025-04-24] MEDS: METOPROLOL SUCCINATE EXT REL 50 MG TABCR PO (08:18)
[2025-04-24] MEDS: COLESTIPOL HCL 1 GM TABLET 2 GM PO (08:21)
[2025-04-24] MEDS: AMIODARONE HCL 200 MG TABLET PO (08:21)
[2025-04-24] MEDS: CALCIUM ACETATE 667 MG TABLET PO (08:21)
[2025-04-24] MEDS: MONTELUKAST SODIUM 10 MG TABLET PO (08:21)
[2025-04-24] MEDS: ESCITALOPRAM OXALATE 5 MG TABLET PO (08:21)
[2025-04-24] MEDS: ISOSORBIDE MONONITRATE 30 MG TAB.ER.24H PO (08:21)
[2025-04-24] MEDS: VANCOMYCIN 1,750 MG/NS 500 ML 1,750 MG/500 ML BAG 175 MG IVPB (08:23)
[2025-04-24] MEDS: FLUTICASONE/SALMETEROL 115-21 MCG INHALER 1 PUFF 2 PUFF INHALATION ×2 (08:37→19:36)
[2025-04-24 10:34] LABS: Hepatitis B Surface Antigen Negative (Negative)
[2025-04-24 10:52] LABS: Hepatitis B Surface Anti Res Negative
--- NOTE | 2025-04-24 11:35 | P.PNIM_ITS ---
Assessment and Plan Assessment and Plan (1) Acute UTI: Code(s): N39.0 - Urinary tract infection, site not specified Status: Acute Assessment and Plan: * Started on Rocephin in ER * blood and urine cultures pending * check daily lactic acid levels. * patient's blood pressure stable at 147/55 and heart rate is 54. Afebrile, WBC 10.9. * last month her urine culture grew mixed urogenital agusto (2) Leg wound, right: Code(s): S81.801A - Unspecified open wound, right lower leg, initial encounter Status: Acute Assessment and Plan: * chronic wound to right lower extremity * Started on vancomycin * wound and blood cultures pending * wound Care consulted * Not given any IV fluids as she is a dialysis patient. * the patient is also on p.o. clindamycin from home please clarify if he patient is still taking this and for what purpose . * Lactic 2.2 ->2.1 -> 2.9 * ID consult placed by admitting provider (3) ESRD on hemodialysis: Code(s): N18.6 - End stage renal disease; Z99.2 - Dependence on renal dialysis Status: Acute Assessment and Plan: * left upper arm AV fistula has a positive bruit and thrill. * nephrology consulted, following * continue to monitor magnesium phos and other electrolytes * the patient has dialysis on Sunday outpatient (4) Hypothyroidism (acquired): Onset Date: ~12/23/22 Code(s): E03.9 - Hypothyroidism, unspecified Status: Acute Assessment and Plan: * continue levothyroxine (5) Diabetes: Code(s): E11.9 - Type 2 diabetes mellitus without complications Status: Acute Assessment and Plan: * Accu-Cheks AC and HS with sliding scale insulin and hypoglycemic protocol. * diabetic diet * pharmacy to reduce long-acting home insulin by 20%. (6) COPD (chronic obstructive pulmonary disease): Qualifiers: COPD type: unspecified COPD Qualified Code(s): J44.9 - Chronic obstructive pulmonary disease, unspecified Code(s): J44.9 - Chronic obstructive pulmonary disease, unspecified Status: Acute Assessment and Plan: * continue with home inhalers including albuterol and budesonide. * continue singular (7) RAINA (obstructive sleep apnea): Code(s): G47.33 - Obstructive sleep apnea (adult) (pediatric) Status: Acute Assessment and Plan: * titrate CPAP to home settings (8) Generalized weakness: Code(s): R53.1 - Weakness Status: Acute Assessment and Plan: * PT and OT to evaluate patient. (9) Atrial fibrillation: Code(s): I48.91 - Unspecified atrial fibrillation Status: Chronic Assessment and Plan: * patient in sinus bradycardia * continue metoprolol - Hold if HR < 50 * continue amiodarone, apixaban * HR is 54 an EKG was sinus bradycardia (10) Hyperlipidemia LDL goal <70: Code(s): E78.5 - Hyperlipidemia, unspecified Status: Acute Assessment and Plan: * continue with colestipol (11) Hypertension: Qualifiers: Hypertension type: unspecified Qualified Code(s): I10 - Essential (primary) hypertension Code(s): I10 - Essential (primary) hypertension Status: Chronic Assessment and Plan: * continue with hydralazine * continue with metoprolol if blood pressure allows. Currently blood pressure is 147/55. Hold if heart rate less than 50 (12) RLS (restless legs syndrome): Code(s): G25.81 - Restless legs syndrome Status: Acute Assessment and Plan: * continue to open her (13) Insomnia: Code(s): G47.00 - Insomnia, unspecified Status: Acute Assessment and Plan: * continue trazodone Plan I did speak with the pharmacist today and she has stated that the Infectious Disease pharmacist would take a look at the antibiotic and determine if clindamycin is on her home medication list needs to be continued. The patient has a history of DVT but is already apixaban. Subjective Date/time seen: 04/24/25 11:35 Interval history: 74-year-old female patient who has a history of AFib, DVT, end-stage renal disease on dialysis, congestive heart failure, COPD diabetes and a history of CVA with expressive aphasia. The patient came in via EMS after an unwitnessed fall that occurred last night. 04/24/2025 Patient sitting in bed at time of exam, undergoing dialysis at this time. Remains afebrile without leukocytosis. Blood and urine cultures still pending. Pt otherwise stable. Review of Systems Review of Systems: ROS unobtainable: Yes unobtainable due to medical condition and unobtainable due to mental status Exam Const: General: cooperative, awake, Physically active, average body habitus and well nourished Nutritional Appearance: average body habitus and well nourished Orientation/consciousness: oriented to person, oriented to place, oriented to time and patient oriented x3 HENMT: Head: normal to inspection, No palpable skull fracture present, normocephalic, atraumatic and abrasion Ears: hearing grossly normal bilaterally Eyes: General: appearance normal, both eyes and all related structures Alignment and Position: alignment normal Periorbital: periorbital findings normal Eyelids: eyelids normal Neck: Neck: normal visual inspection, full ROM, no lymphadenopathy and trachea midline Resp: Effort & Inspection: normal respiratory effort Auscultation: clear to auscultation bilaterally Cardio: Palpation: normal PMI Rate: regular rate Rhythm: regular rhythm Heart sounds: S2 normal heart sound present GI: Inspection: normal to inspection Auscultation: normal bowel sounds : General: Yes no CVA tenderness Back/Spine/Pelvis: Back: no CVA tenderness Cervical Spine: cervical ROM normal Skin: General skin exam: normal color Lesions: no lesions Other: Left upper arm AV fistula with positive bruit and thrill. Large right diabetic ulcer noted to posterior ankle exposing the Achilles tendon. The area is approximately 5 by 7 with leong malodorous discharge. The area is unstageable. Erythema noted around the ulcerated area. Please see wound photio There is a dressing over the right forearm that I was unable to remove at this time and the nurse stated that it was a skin tear. Neuro: General: oriented to person, oriented to place, oriented to time and patient oriented x3 Extrem: General: normal to inspection Right upper extremity: normal to inspection and shoulder/upper arm Left upper extremity: normal to inspection and shoulder/upper arm Psych: Affect: normal affect Objective Data Vital Signs Vital Signs: Vital Signs - 24 hr 04/23/25 13:43 04/23/25 17:05 04/23/25 20:00 Temperature 98.2 F 97.4 F L Pulse Rate 53 L 48 L 50 L Respiratory Rate 16 20 16 Blood Pressure 115/49 L 121/84 150/59 H Pulse Oximetry 100 97 98 Oxygen Delivery Room Air 04/24/25 00:00 04/24/25 04:00 04/24/25 05:41 Temperature 97.1 F L 97.3 F L 97.3 F L Pulse Rate 58 L 54 L 54 L Respiratory Rate 16 14 14 Blood Pressure 135/54 L 147/55 H 147/55 H Pulse Oximetry 100 100 100 Oxygen Delivery 04/24/25 08:00 04/24/25 08:00 04/24/25 08:18 Temperature 96.3 F L Pulse Rate 55 L 55 L Respiratory Rate 18 Blood Pressure 154/51 H Pulse Oximetry 98 Oxygen Delivery Room Air 04/24/25 08:21 04/24/25 08:42 04/24/25 10:45 Temperature 97.5 F L Pulse Rate 55 L 54 L Respiratory Rate 18 Blood Pressure 134/56 L Pulse Oximetry 95 97 Oxygen Delivery Room Air 04/24/25 10:56 Temperature Pulse Rate 53 L Respiratory Rate Blood Pressure 144/55 H Pulse Oximetry Oxygen Delivery Intake/Output Intake/Output: Intake & Output 04/21/25 04/22/25 04/23/25 04/24/25 23:59 23:59 23:59 23:59 Intake Total 50 240 Output Total 50 Balance 0 240 Meds/Results Medications: Active Medications Generic Name Dose Route Start Last Admin Trade Name Freq PRN Reason Stop Dose Admin Albuterol 2.5 mg 04/24/25 01:37 Albuterol Sulfate Neb 2.5 Mg/3 Ml Inh INHALATION Q4HRT PRN Shortness Of Breath Or Wheezing Amiodarone HCl 200 mg 04/24/25 08:00 04/24/25 08:21 Amiodarone Hcl 200 Mg Tablet PO 200 mg DAILY@0800 ALINA Administration Apixaban 2.5 mg 04/24/25 09:00 04/24/25 08:17 Apixaban 2.5 Mg Tablet PO 2.5 mg Q12HR ALINA Administration Atorvastatin Calcium 20 mg 04/24/25 21:00 Atorvastatin 20 Mg Tablet PO HS ALINA Calcium Acetate 667 mg 04/24/25 09:00 04/24/25 08:21 Calcium Acetate 667 Mg Tablet PO 667 mg DAILY ALINA Administration Colestipol HCl 2 gm 04/24/25 09:00 04/24/25 08:21 Colestipol Hcl 1 Gm Tablet PO 2 gm DAILY ALINA Administration Dextrose 12.5 gm 04/24/25 01:39 Dextrose 50% 25 Gm/50 Ml Syringe IV PUSH PRN PRN Hypoglycemia Protocol Epoetin Jorge Alberto-epbx 20,000 units 04/24/25 18:00 Epoetin Jorge Alberto-Epbx 10,000 Units/Ml Vial IV PUSH 04/24/25 18:01 ONCE ONE Escitalopram Oxalate 5 mg 04/24/25 09:00 04/24/25 08:21 Escitalopram Oxalate 5 Mg Tablet PO 5 mg DAILY ALINA Administration Glucagon 1 mg 04/24/25 01:39 Glucagon For Inj 1 Mg Vial IM PRN PRN Hypoglycemia Protocol Glucose 15 gm 04/24/25 01:39 Glucose Oral Gel 15 Gm Of Glucse In 37.5 Gm Tube PO PRN PRN Hypoglycemia Protocol Hydralazine HCl 25 mg 04/24/25 06:00 04/24/25 05:49 Hydralazine Hcl 25 Mg Tablet PO 25 mg Q8HR ALINA Administration Ceftriaxone Sodium 1 gm/ 50 mls @ 100 mls/hr 04/23/25 17:00 04/23/25 17:40 Sodium Chloride IVPB Infused Q24H ALINA Infusion Dextrose 1,000 mls @ 100 mls/hr 04/24/25 01:39 Dextrose 5% 1,000 Ml IVPB PRN PRN Hypoglycemia Protocol Albumin Human 50 mls @ 999 mls/hr 04/24/25 09:24 Albutein IVPB 05/24/25 09:23 Q10M PRN HYPOTENSION Insulin Aspart 2 - 5 units 04/24/25 08:00 04/24/25 08:22 Insulin Aspart (*Bkc) 100 Units/Ml SUB-Q Not Given TIDWM ALINA Protocol Isosorbide Mononitrate 30 mg 04/24/25 09:00 04/24/25 08:21 Isosorbide Mononitrate 30 Mg Tab.Er.24h PO 30 mg DAILY ALINA Administration Levothyroxine Sodium 200 mcg 04/24/25 06:30 04/24/25 05:49 Levothyroxine Sodium 100 Mcg Tablet PO 200 mcg DAILY@0630 ALINA Administration Lidocaine/Prilocaine 1 each 04/24/25 09:30 Lidocaine/Prilocaine Cream 2.5-2.5% Tube TOPICAL WITH DIALYSIS PRN for dialysis Protocol Lorazepam 0.5 mg 04/24/25 01:37 Lorazepam (*Crx) 0.5 Mg Tablet PO BID PRN Anxiety Metoprolol Succinate 50 mg 04/24/25 09:00 04/24/25 08:18 Metoprolol Succinate Ext Rel 50 Mg Tabcr PO 50 mg QAM ALINA Administration Montelukast Sodium 10 mg 04/24/25 09:00 04/24/25 08:21 Montelukast Sodium 10 Mg Tablet PO 10 mg DAILY ALINA Administration Ropinirole HCl 0.5 mg 04/24/25 09:00 04/24/25 08:21 Ropinirole Hcl 0.5 Mg Tablet PO 0.5 mg Q12HR ALINA Administration Fluticasone/Salmeterol 2 puff 04/24/25 08:00 04/24/25 08:37 Fluticasone/Salmeterol 115-21 Mcg Inhaler 1 Puff INHALATION 2 puff Q12HRT ALINA Administration Tramadol HCl 25 mg 04/24/25 01:47 04/24/25 05:48 Tramadol Hcl (*Crx) 25 Mg Tablet PO 25 mg Q12H PRN Administration Pain Trazodone HCl 50 mg 04/24/25 21:00 Trazodone Hcl 50 Mg Tablet PO QHS ALINA Vancomycin HCl 1 each 04/24/25 08:09 Vancomycin For Hemodialysis IVPB PRN PRN Vancomycin Protocol Radiology Results: ITS Impressions Head CT 04/23/25 14:01 Impression: 1.No acute intracranial abnormality. Cervical Spine CT 04/23/25 14:05 Impression: No acute abnormality. Chest X-Ray 04/23/25 14:20 IMPRESSION: 1. Probable mild interstitial pulmonary edema with persistent right midlung atelectasis and/or scarring. 2. No significant change from prior. Tibia/Fibula X-Ray 04/23/25 14:20 IMPRESSION: 1. No cortical erosions or periosteal reaction to suggest osteitis. No other acute osseous abnormality. 2. 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 Labs Labs: Laboratory Results - last 24 hr 04/23/25 04/23/25 04/23/25 14:29 14:30 16:20 WBC 10.9 H RBC 3.01 L Hgb 7.9 L Hct 26.7 L MCV 88.7 MCH 26.2 MCHC 29.6 L RDW 19.2 H Plt Count 303 MPV 9.6 Immature Gran % (Auto) 0.7 H Neut % (Auto) 79.0 H Lymph % (Auto) 9.1 L [place] % (Auto) 10.4 H Eos % (Auto) 0.3 Baso % (Auto) 0.5 Lymph # (Auto) 0.99 [place] # (Auto) 1.1 H Eos # (Auto) 0.0 Baso # (Auto) 0.1 Abs Immat Gran (auto) 0.08 H Absolute Neuts (auto) 8.6 H Absolute Nucleated RBC 0.000 Band Neutrophils % Not Reportable Nucleated RBC % 0.0 Platelet Estimate Adequate Polychromasia Occasional Hypochromasia 1+ Anisocytosis 1+ Ovalocytes 1+ Schistocytes None seen PT 24.6 H INR 2.3 Sodium 136 L Potassium 4.3 Chloride 97 L Carbon Dioxide 29 Anion Gap 10 BUN 31 H Creatinine 5.63 H Estim Creat Clear Calc 9 Estimated GFR 7 L Glucose 139 H POC Capillary Glucose Hemoglobin A1c 5.4 Lactic Acid 2.2 H Calcium 8.2 L Magnesium Total Bilirubin 1.1 AST 23 ALT 17 Alkaline Phosphatase 120 Total Creatine Kinase 84 Total Protein 7.6 Albumin 3.4 L Urine Color Other Urine Appearance Turbid H Urine pH 7.0 Ur Specific Irene 1.020 Urine Protein 4+ H Urine Glucose (UA) Negative Urine Ketones Negative Ur Blood (Man) 2+ H Urine Nitrate Negative Urine Bilirubin Negative Urine Urobilinogen 0.2 Leukocyte Esterase Rfl 2+ H Urine RBC Unable to determine Urine WBC >100 Urine Bacteria Unable to determine Hep Bs Antigen Hep Bs Antibody 04/23/25 04/24/25 04/24/25 17:16 07:14 08:04 WBC 10.0 RBC 2.94 L Hgb 7.6 L Hct 26.0 L MCV 88.4 MCH 25.9 L MCHC 29.2 L RDW 19.4 H Plt Count 289 MPV 9.9 Immature Gran % (Auto) 0.8 H Neut % (Auto) 75.3 H Lymph % (Auto) 11.2 L [place] % (Auto) 11.4 H Eos % (Auto) 0.8 Baso % (Auto) 0.5 Lymph # (Auto) 1.12 [place] # (Auto) 1.1 H Eos # (Auto) 0.1 Baso # (Auto) 0.1 Abs Immat Gran (auto) 0.08 H Absolute Neuts (auto) 7.5 H Absolute Nucleated RBC 0.000 Band Neutrophils % Not Reportable Nucleated RBC % 0.0 Platelet Estimate Adequate Polychromasia Hypochromasia 1+ Anisocytosis 1+ Ovalocytes Schistocytes None seen PT INR Sodium 136 L Potassium 4.7 Chloride 98 Carbon Dioxide 25 Anion Gap 13 H BUN 38 H Creatinine 6.18 H Estim Creat Clear Calc 8 Estimated GFR 7 L Glucose 120 H POC Capillary Glucose 123 H Hemoglobin A1c Lactic Acid 2.1 H 2.9 H Calcium 8.1 L Magnesium 1.9 Total Bilirubin AST ALT Alkaline Phosphatase Total Creatine Kinase 62 Total Protein Albumin Urine Color Urine Appearance Urine pH Ur Specific Irene Urine Protein Urine Glucose (UA) Urine Ketones Ur Blood (Man) Urine Nitrate Urine Bilirubin Urine Urobilinogen Leukocyte Esterase Rfl Urine RBC Urine WBC Urine Bacteria Hep Bs Antigen Negative Hep Bs Antibody Negative 04/24/25 09:39 WBC RBC Hgb Hct MCV MCH MCHC RDW Plt Count MPV Immature Gran % (Auto) Neut % (Auto) Lymph % (Auto) [place] % (Auto) Eos % (Auto) Baso % (Auto) Lymph # (Auto) [place] # (Auto) Eos # (Auto) Baso # (Auto) Abs Immat Gran (auto) Absolute Neuts (auto) Absolute Nucleated RBC Band Neutrophils % Nucleated RBC % Platelet Estimate Polychromasia Hypochromasia Anisocytosis Ovalocytes Schistocytes PT INR Sodium Potassium Chloride Carbon Dioxide Anion Gap BUN Creatinine Estim Creat Clear Calc Estimated GFR Glucose POC Capillary Glucose Hemoglobin A1c Lactic Acid 2.9 H Calcium Magnesium Total Bilirubin AST ALT Alkaline Phosphatase Total Creatine Kinase Total Protein Albumin Urine Color Urine Appearance Urine pH Ur Specific Irene Urine Protein Urine Glucose (UA) Urine Ketones Ur Blood (Man) Urine Nitrate Urine Bilirubin Urine Urobilinogen Leukocyte Esterase Rfl Urine RBC Urine WBC Urine Bacteria Hep Bs Antigen Hep Bs Antibody Quality VTE Prophylaxis VTE prophylaxis: pharmacologic ordered
--- NOTE | 2025-04-24 12:15 | PCOTNOTE ---
Attempted OT evaluation. Pt. just leaving for dialysis. Will continue to follow.
--- NOTE | 2025-04-24 12:44 | PCPTNOTE ---
Attempted PT evaluation, pt at dialysis. Will follow.
[2025-04-24 13:11] LABS: Hematocrit 24.6 % (37.0-47.0); Hemoglobin 7.4 g/dL (12.0-15.0)
--- NOTE | 2025-04-24 13:40 | P.CONNP_ITS ---
Assessment and Plan Assessment and plan (1) End stage renal disease: Code(s): N18.6 - End stage renal disease Status: Chronic Assessment and Plan: * HD today * given holiday ( & ) dialysis schedule, plan dialysis on Sun//Sunday * follow electrolytes, volume status, and clearance (2) Frequent falls: Code(s): R29.6 - Repeated falls Status: Acute Assessment and Plan: * as noted by history * PT/OT as tolerated * possible need for placement (3) UTI (urinary tract infection): Code(s): N39.0 - Urinary tract infection, site not specified Status: Acute Assessment and Plan: * admission UA highly suggestive * follow culture data * on antibiotics (4) Leg wound, right: Code(s): S81.801A - Unspecified open wound, right lower leg, initial encounter Status: Acute Assessment and Plan: * as noted on presentation * follow culture data * on antibiotics (5) Anemia: Code(s): D64.9 - Anemia, unspecified Status: Chronic Assessment and Plan: * due to ESRD * RADHA/Epogen with HD * follow trend of H/H (6) COPD (chronic obstructive pulmonary disease): Qualifiers: COPD type: unspecified COPD Qualified Code(s): J44.9 - Chronic obstructive pulmonary disease, unspecified Code(s): J44.9 - Chronic obstructive pulmonary disease, unspecified Status: Acute Assessment and Plan: * no evidence of exacerbation * continue home inhalers * complicated by RAINA * continue home CPAP * follow respiratory status (7) Hypertension: Qualifiers: Hypertension type: unspecified Qualified Code(s): I10 - Essential (primary) hypertension Code(s): I10 - Essential (primary) hypertension Status: Chronic Assessment and Plan: * reasonable control * resume home BP medications * follow trend of hemodynamics (8) Type 2 diabetes mellitus with hyperglycemia: Qualifiers: Diabetes mellitus nursing home insulin use: with nursing home use Qualified Code(s): E11.65 - Type 2 diabetes mellitus with hyperglycemia; 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 Thank you for allowing me to participate in the care of this patient. L History of Present Illness Reason for Consult Consult date: 04/24/25 Reason for consult: end stage renal disease Chief Complaint Chief complaint: UTI/Adult Failure to Thrive History of Present Illness Narrative: Most of the history that I have obtained is review the electronic medical record as well as discussion with the physician/nurses involved in the patient's care as it is difficult to get a full and complete history from the patient due to her expressive aphasia secondary to her previous/history of CVAs. The patient is a 74-year-old female with a past medical history as outlined below who presented to [facility] Emergency Room status post fall. According to ER/EMS documentation, the patient had a unwitnessed fall that occurred yesterday evening. It is unclear how long the patient was down but she was not found till the morning of admission by her . As already mentioned, given her expressive aphasia, details with regarding the specifics of the fall including any symptoms prior to or after her not entirely clear. When the patient's found her, he immediately called EMS and she was subsequently transferred to the emergency room for further assessment. Workup and evaluation emergency room demonstrated the patient to be hemodynamically stable and afebrile. It did not appear that she had any acute trauma or injury following the fall. Routine blood work demonstrated a white blood cell count of 10.9, hemoglobin 7.9, hematocrit 26.7, platelet count 303, sodium 136, potassium 4.3, bicarb 29, BUN 31, creatinine is 5.63, glucose 139, calcium 8.2, normal LFTs, total creatinine kinase 84, albumin 3.4, with a lactic acid of 2.2. Her urinalysis was significant for a turbid appearance, 4+ protein, 2+ blood, 2+ leukocyte esterase, greater than 100 white blood cells, and unable to determine urine bacteria. CT scan of the head noted no acute intracranial abnormality and a subsequent cervical spine CT demonstrated no acute pathology either. Her chest x-ray noted mild interstitial pulmonary edema with persistent right mid lung atelectasis versus scarring with no significant change from previous x-ray. She was noted to have a wound on her right lower extremity and a subsequent right tib/fib x-ray demonstrated no evidence of cortical erosions or osteomyelitis but did demonstrate significant degenerative joint disease / osteoarthritis particularly in the medial compartment of the right knee. Upon further questioning by the ER physician, she was noted to have at least 5 falls in the past week including this 1 that led to her ER presentation. After appropriate cultures were obtained, she was started on antibiotics for her presumed urinary tract infection and was felt that the patient might benefit from possible rehab /[place] [facility] placement given her recurrent falls as well as PT/OT so she was admitted to the hospital for further evaluation and therapy. No new issues or problems have occurred since her admission to hospital and she otherwise appears at her baseline mental status from my previous interactions with her on her numerous hospitalizations in the past. Renal consultation was requested due to her end-stage renal disease. The patient normally dialyzes on a Sunday, Sunday, Sunday schedule at [facility] under the care of Dr. Jame Dumont. From a dialysis perspective, she has been doing reasonably well and compliant with her treatments. She does have issues and problems with significant fluid gains in between her dialysis sessions which can result in difficulty achieving her dry weight but this had not be a recent problem. However, sometimes, the patient is unable stay still when she does her dialysis treatments and since has a AVF for her dialysis access, there is always a concern that she is at risk for pulling out her access/cannulation needles so this leads to her treatments ending early. Her last dialysis treatment was on Sunday, 04/22, at her outpatient dialysis clinic. She is next due for dialysis today. Currently, at the time my visit, she is tolerating her dialysis treatment at the time of my visit ([facility] on HD at 1:30pm). Review of Systems 2 Review of Systems: As per HPI. [facility] Past Medical History Medical History (Updated 04/24/25 @ 15:15 by Dimas Rios MD) End stage renal disease Obstructive sleep apnea UTI (urinary tract infection) Femoral artery stenosis, right Left-sided cerebrovascular accident (CVA) (01/04/24) With residual left-sided visual neglect, profound expressive aphasia and right-sided hemiplegia ESRD on hemodialysis (02/17/22) Bilateral primary osteoarthritis of knee Chronic anticoagulation Obstructive sleep apnea Paroxysmal atrial fibrillation Hypothyroidism Insulin dependent type 2 diabetes mellitus Generalized anxiety disorder Chronic obstructive pulmonary disease Renal osteodystrophy DVT of lower extremity (deep venous thrombosis) Asthma-COPD overlap syndrome 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 Chronic diastolic (congestive) heart failure Coronary artery disease involving [place] heart without angina pectoris Depression GERD without esophagitis Peripheral polyneuropathy Surgical History Surgical History (Updated 04/24/25 @ 07:18 by Naomi Nathan APRN) H/O rectal polypectomy H/O thyroidectomy History of tracheostomy (04/24/22) With subsequent removal History of cataract extraction History of tonsillectomy History of cholecystectomy History of gastrostomy tube placement and removal Family History Family History Father Hypertension Family history of coronary artery disease Sibling Hypertension Family history of coronary artery disease Mother Cerebrovascular accident Other Asthma Depression Family history of Alzheimer's disease Family history of arthritis Family history of cardiovascular disease Family history of lymphoma Family history of obesity Family history of seizure disorder Social History Social History Social History: Surrogate medical decision maker: Anjum (spouse) or Gwen (daughter) Kyra. Code status: Do not intubate Smoking packs per day: 1 Smoking cigarettes per day: 20.0 Years smoked: 22 Smoking pack-years: 22.00 Smoking status: Former smoker Second hand tobacco smoke exposure: No Alcohol intake: unknown Alcohol use details: special occasions Substance use: never Substance use type: does not use Last use: 01/05/23 Lack of Transportation: No Lack of Food: Never True Current Housing: I Have Housing Concerned About Future Housing: No Difficulty Paying Gas/Electric Bills: No Difficulty Paying for Meds: No Currently Unemployed: No Education: High School Diploma/GED Difficulty w/ Childcare or Family Care: No Living arrangements: with family Occupation/Education: retired Spiritual care concerns: No Meds Home Medications and Allergies Home Medications ?Medication ?Instructions ?Recorded ?Confirmed ?Type albuterol sulfate 2.5 mg/3 mL 2.5 mg (3 mL) inhalation Q4-6H PRN 07/10/23 04/23/25 Rx (0.083 %) solution for nebulization shortness of breat h or wheezing #90 mL Ventolin HFA 90 mcg/actuation See Rx Instructions .Rou te 05/20/24 04/23/25 Rx aerosol inhaler (albuterol sulfate) .COMPLEX #18 grams insulin aspart U-100 100 unit/mL See Rx Instructions . Route .COMPLEX 05/20/24 04/23/25 History (3 mL) subcutaneous pen (Novolog FlexPen U-100 Insulin aspart) metoprolol succinate 50 mg 50 mg PO QAM #90 tabs 05/2004/23/25 Rx tablet,extended release 24 hr montelukast 10 mg tablet 10 mg PO DAILY #90 tabs 06/0804/23/25 Rx budesonide-formoterol HFA 160 2 puff inhalation Q12H # 10.2 grams 07/17/24 04/23/25 Rx mcg-4.5 mcg/actuation aerosol inhaler amiodarone 200 mg tablet 200 mg PO QAM 09/02/2404/23 History atorvastatin 20 mg tablet (Lipitor) 20 mg PO HS #90 ta bs 11/03/24 04/23/25 Rx trazodone 50 mg tablet 50 mg PO QHS #30 tabs 04/23/25 Rx escitalopram oxalate 5 mg tablet 5 mg PO DAILY #90 tab s 11/04/24 04/23/25 Rx (Lexapro) hydralazine 25 mg tablet 25 mg PO TID #270 tabs 12/0404/23/25 Rx isosorbide mononitrate 30 mg 30 mg PO DAILY #90 tabs 1 04/23/25 Rx tablet,extended release 24 hr apixaban 2.5 mg tablet (Eliquis) 2.5 mg PO BID 5 04/23/25 History insulin glargine 100 unit/mL (3 18 unit (0.18 mL) subc ut QPM #15 mL 03/12/25 04/23/25 Rx mL) subcutaneous pen (Lantus Solostar U-100 Insulin) calcium acetate 667 mg tablet 667 mg PO DAILY 03/16/25 04/23/25 History levothyroxine 200 mcg capsule 200 mcg PO DAILY 5 04/23/25 History lorazepam 0.5 mg tablet (Ativan) 0.5 mg PO BID PRN anx iety #60 tabs 03/16/25 04/23/25 Rx ropinirole 0.5 mg tablet 0.5 mg PO BID 03/16/2504/23 History clindamycin HCl 300 mg capsule 300 mg PO Q6H #40 caps 04/20/25 04/23/25 Rx (Cleocin HCl) tramadol 25 mg tablet 25 mg PO Q12H pain #60 tabs 04/22/25 04/23/25 Rx colestipol 1 gram tablet 2 g PO DAILY 04/23/25 History Allergies Allergy/AdvReac Type Severity Reaction Status Date / Time nickel Allergy Intermediate hives and Verified 04/23/25 20:05 itchy rash Sulfa (Sulfonamide Allergy Intermediate Urticaria Verified 04/23/25 20:05 Antibiotics) and hives Calcium Channel Blocking AdvReac Intermediate STATES Verified 04/23/25 20:05 Agents-Dih CANNOT TAKE SINCE SHE HAS ASTHMA diphenhydramine AdvReac Intermediate restless Verified 04/23/25 20:05 legs nifedipine AdvReac Intermediate palpitation Verified 04/23/25 20:05 s Sqftahy-QNN-GlO Reductase AdvReac Intermediate muscle Verified 04/23/25 20:05 Inhibitor (Ccmulkr-Fvy-Lqi cramps Reductase Inhibitor) CALCIUMCHANNEL Allergy Unknown SEE COMMIT Uncoded 04/20/25 11:03 Vital Signs Vital Signs Temp Pulse Resp BP Pulse Ox O2 Del Method 04/24/25 13:30 52 L 153/65 H 04/24/25 13:15 52 L 153/75 H 04/24/25 13:00 51 L 163/66 H 04/24/25 12:45 49 L 153/68 H 04/24/25 12:30 50 L 150/54 H 04/24/25 12:15 50 L 165/68 H 04/24/25 12:00 51 L 160/63 H 04/24/25 11:45 53 L 136/67 04/24/25 11:30 50 L 135/56 L 04/24/25 11:15 52 L 132/58 L 04/24/25 10:56 53 L 144/55 H 04/24/25 10:45 97.5 F L 54 L 18 134/56 L 97 04/24/25 08:42 95 Room Air 04/24/25 08:21 55 L 04/24/25 08:18 55 L 04/24/25 08:00 Room Air 04/24/25 08:00 96.3 F L 55 L 18 154/51 H 98 04/24/25 05:41 97.3 F L 54 L 14 147/55 H 100 04/24/25 04:00 97.3 F L 54 L 14 147/55 H 100 04/24/25 00:00 97.1 F L 58 L 16 135/54 L 100 04/23/25 20:00 97.4 F L 50 L 16 150/59 H 98 04/23/25 17:05 48 L 20 121/84 97 Exam 2 Narrative: GENERAL APPEARANCE: elderly but well developed well nourished female in no acute distress HEENT: normocephalic, atraumatic, normal conjunctiva and sclera, nares patient NECK: no lymphadenopathy, thyromegaly, or JVD MOUTH: normal lips, teeth, and gums CARDIOVASCULAR: RRR, normal S1 and S2, no rub RESPIRATORY: clear anteriorly; decreased at bases ABDOMEN: soft, nontender, nondistended, positive bowel sounds present EXTREMITIES: no evidence of cyanosis, clubbing, or edema NEUROLOGICAL: awake and alert; expressive aphasia present; noted some right sided weakness Results Lab Results 04/24/25 17:55 04/24/25 07:14 Lab results: Most recent lab results Calcium 8.1 mg/dL (8.4-10.2) L 04/24/25 07:14 Magnesium 1.9 mg/dL (1.6-2.3) 04/24/25 07:14
[2025-04-24] MEDS: EPOETIN ALFA-EPBX 20,000 UNITS/ML VIAL 20000 UNITS IV PUSH (14:21)
[2025-04-24] MEDS: SODIUM CHLORIDE 0.9% IV 1,000 ML 999 ML IV CONT (15:18)
[2025-04-24] MEDS: metroNIDAZOLE 500 MG/ISO 100ML 500 MG/100 ML BAG 100 MG IVPB ×2 (15:22→22:52)
--- NOTE | 2025-04-24 15:33 | WPDIDCN ---
Assessment and Plan Assessment and plan (1) Leg wound, right: Code(s): S81.801A - Unspecified open wound, right lower leg, initial encounter Status: Acute Assessment and Plan: #Patient found down. Rule out sepsis. Rule out bacteremia patient with right leg wound as well as end-stage renal disease on hemodialysis. UTI seems less likely. #History of stroke with expressive aphasia. No signs of meningoencephalitis initially. #End-stage renal disease on hemodialysis. Left AV fistula. No clear infection at that site. Plan: Maintain ceftriaxone. Add Flagyl plus vancomycin. Await blood cultures. Follow mental status exam. Follow-up clinical exam including white blood cell count trend, fever curve. Not clear she will need a long course of antibiotic therapy, especially for the leg as this more chronic wound. Would consider wound care evaluation. HPI Data of Consult Date/Time: 04/24/25 15:33 Requesting Physician: Michael Salmeron MD Primary Care Provider: Rikki Amezquita MD Consult Narrative Narrative: Gregoria Rae is a 74 year old female With a history of expressive aphasia and end-stage renal disease on hemodialysis via left AV fistula presenting status post fall. She was found down. Unclear how long she was down. She is a chronic right leg wound. Cannot provide much history regarding her symptoms. Coming in through the ED. Started on IV antibiotics with ceftriaxone. Currently getting dialysis. No chills here. Initial concern for UTI although urinalysis fairly bland. Does still make urine. No obvious pneumonia although there is some fluid overload on presentation. She is unaware if she missed any dialysis sessions. [facility] Past Medical History Medical History (Updated 04/24/25 @ 15:15 by Dimas Rios MD) Obstructive sleep apnea End stage renal disease UTI (urinary tract infection) Femoral artery stenosis, right 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 Paroxysmal atrial fibrillation Bilateral primary osteoarthritis of knee Renal osteodystrophy DVT of lower extremity (deep venous thrombosis) Asthma-COPD overlap syndrome Left-sided cerebrovascular accident (CVA) (01/04/24) With residual left-sided visual neglect, profound expressive aphasia and right-sided hemiplegia ESRD on hemodialysis (02/17/22) Chronic anticoagulation Obstructive sleep apnea Hypothyroidism Insulin dependent type 2 diabetes mellitus Generalized anxiety disorder Chronic obstructive pulmonary disease Chronic diastolic (congestive) heart failure Coronary artery disease involving [place] heart without angina pectoris Depression GERD without esophagitis Peripheral polyneuropathy Surgical History Surgical History (Updated 04/24/25 @ 07:18 by Naomi Nathan APRN) H/O rectal polypectomy H/O thyroidectomy History of tracheostomy (04/24/22) With subsequent removal History of cataract extraction History of tonsillectomy History of cholecystectomy History of gastrostomy tube placement and removal Family History Family History Father Hypertension Family history of coronary artery disease Sibling Hypertension Family history of coronary artery disease Mother Cerebrovascular accident Other Asthma Depression Family history of Alzheimer's disease Family history of arthritis Family history of cardiovascular disease Family history of lymphoma Family history of obesity Family history of seizure disorder Social History Social History Social History: Surrogate medical decision maker: Anjum (spouse) or Gwen (daughter) Kyra. Code status: Do not intubate Smoking packs per day: 1 Smoking cigarettes per day: 20.0 Years smoked: 22 Smoking pack-years: 22.00 Smoking status: Former smoker Second hand tobacco smoke exposure: No Alcohol intake: unknown Alcohol use details: special occasions Substance use: never Substance use type: does not use Last use: 01/05/23 Lack of Transportation: No Lack of Food: Never True Current Housing: I Have Housing Concerned About Future Housing: No Difficulty Paying Gas/Electric Bills: No Difficulty Paying for Meds: No Currently Unemployed: No Education: High School Diploma/GED Difficulty w/ Childcare or Family Care: No Living arrangements: with family Occupation/Education: retired Spiritual care concerns: No Meds Home Medications and Allergies Home Medications ?Medication ?Instructions ?Recorded ?Confirmed ?Type albuterol sulfate 2.5 mg/3 mL 2.5 mg (3 mL) inhalation Q4-6H PRN 07/10/23 04/23/25 Rx (0.083 %) solution for nebulization shortness of breath or wheezing #90 mL Ventolin HFA 90 mcg/actuation See Rx Instructions .Route 05/20/24 04/23/25 Rx aerosol inhaler (albuterol sulfate) .COMPLEX #18 grams insulin aspart U-100 100 unit/mL See Rx Instructions .Route .COMPLEX 05/20/24 04/23/25 History (3 mL) subcutaneous pen (Novolog FlexPen U-100 Insulin aspart) metoprolol succinate 50 mg 50 mg PO QAM #90 tabs 05/20/24 04/23/25 Rx tablet,extended release 24 hr montelukast 10 mg tablet 10 mg PO DAILY #90 tabs 07/04/24 04/23/25 Rx budesonide-formoterol HFA 160 2 puff inhalation Q12H #10.2 grams 07/17/24 04/23/25 Rx mcg-4.5 mcg/actuation aerosol inhaler amiodarone 200 mg tablet 200 mg PO QAM 09/02/24 04/23/25 History atorvastatin 20 mg tablet (Lipitor) 20 mg PO HS #90 tabs 11/03/24 04/23/25 Rx trazodone 50 mg tablet 50 mg PO QHS #30 tabs 11/03/24 04/23/25 Rx escitalopram oxalate 5 mg tablet 5 mg PO DAILY #90 tabs 11/04/24 04/23/25 Rx (Lexapro) hydralazine 25 mg tablet 25 mg PO TID #270 tabs 12/04/24 04/23/25 Rx isosorbide mononitrate 30 mg 30 mg PO DAILY #90 tabs 03/02/25 04/23/25 Rx tablet,extended release 24 hr apixaban 2.5 mg tablet (Eliquis) 2.5 mg PO BID 03/08/25 04/23/25 History insulin glargine 100 unit/mL (3 18 unit (0.18 mL) subcut QPM #15 mL 03/12/25 04/23/25 Rx mL) subcutaneous pen (Lantus Solostar U-100 Insulin) calcium acetate 667 mg tablet 667 mg PO DAILY 03/16/25 04/23/25 History levothyroxine 200 mcg capsule 200 mcg PO DAILY 03/16/25 04/23/25 History lorazepam 0.5 mg tablet (Ativan) 0.5 mg PO BID PRN anxiety #60 tabs 03/16/25 04/23/25 Rx ropinirole 0.5 mg tablet 0.5 mg PO BID 03/16/25 04/23/25 History clindamycin HCl 300 mg capsule 300 mg PO Q6H #40 caps 04/20/25 04/23/25 Rx (Cleocin HCl) tramadol 25 mg tablet 25 mg PO Q12H pain #60 tabs 04/22/25 04/23/25 Rx colestipol 1 gram tablet 2 g PO DAILY 04/23/25 04/23/25 History Allergies Allergy/AdvReac Type Severity Reaction Status Date / Time nickel Allergy Intermediate hives and Verified 04/23/25 20:05 itchy rash Sulfa (Sulfonamide Allergy Intermediate Urticaria Verified 04/23/25 20:05 Antibiotics) and hives Calcium Channel Blocking AdvReac Intermediate STATES Verified 04/23/25 20:05 Agents-Dih CANNOT TAKE SINCE SHE HAS ASTHMA diphenhydramine AdvReac Intermediate restless Verified 04/23/25 20:05 legs nifedipine AdvReac Intermediate palpitation Verified 04/23/25 20:05 s Fdjfflg-MVK-DiW Reductase AdvReac Intermediate muscle Verified 04/23/25 20:05 Inhibitor (Wplnixm-Nzi-Nre cramps Reductase Inhibitor) CALCIUMCHANNEL Allergy Unknown SEE COMMIT Uncoded 04/20/25 11:03 Vital Signs Vital Signs - 24 hr 04/23/25 17:05 04/23/25 20:00 04/24/25 00:00 Temperature 36.3 C L 36.2 C L Pulse Rate 48 L 50 L 58 L Respiratory Rate 20 16 16 Blood Pressure 121/84 150/59 H 135/54 L Pulse Oximetry 97 98 100 Oxygen Delivery 04/24/25 04:00 04/24/25 05:41 04/24/25 08:00 Temperature 36.3 C L 36.3 C L 35.7 C L Pulse Rate 54 L 54 L 55 L Respiratory Rate 14 14 18 Blood Pressure 147/55 H 147/55 H 154/51 H Pulse Oximetry 100 100 98 Oxygen Delivery 04/24/25 08:00 04/24/25 08:18 04/24/25 08:21 Temperature Pulse Rate 55 L 55 L Respiratory Rate Blood Pressure Pulse Oximetry Oxygen Delivery Room Air 04/24/25 08:42 04/24/25 10:45 04/24/25 10:56 Temperature 36.4 C L Pulse Rate 54 L 53 L Respiratory Rate 18 Blood Pressure 134/56 L 144/55 H Pulse Oximetry 95 97 Oxygen Delivery Room Air 04/24/25 11:15 04/24/25 11:30 04/24/25 11:45 Temperature Pulse Rate 52 L 50 L 53 L Respiratory Rate Blood Pressure 132/58 L 135/56 L 136/67 Pulse Oximetry Oxygen Delivery 04/24/25 12:00 04/24/25 12:15 04/24/25 12:30 Temperature Pulse Rate 51 L 50 L 50 L Respiratory Rate Blood Pressure 160/63 H 165/68 H 150/54 H Pulse Oximetry Oxygen Delivery 04/24/25 12:45 04/24/25 13:00 04/24/25 13:15 Temperature Pulse Rate 49 L 51 L 52 L Respiratory Rate Blood Pressure 153/68 H 163/66 H 153/75 H Pulse Oximetry Oxygen Delivery 04/24/25 13:30 04/24/25 13:45 04/24/25 14:00 Temperature Pulse Rate 52 L 52 L 51 L Respiratory Rate Blood Pressure 153/65 H 158/67 H 165/55 H Pulse Oximetry Oxygen Delivery 04/24/25 14:15 04/24/25 14:27 Temperature Pulse Rate 52 L 53 L Respiratory Rate Blood Pressure 174/59 H 163/66 H Pulse Oximetry Oxygen Delivery Exam Narrative: Currently getting dialysis at time of exam. Again expressive aphasia. She is alert. She acknowledges me. No respiratory issues. No labored breathing. AV fistula is cannulated. She has a right wound lower extremities posterior aspect. With some mild erythema surrounding this. Also admitting media was also reviewed with some more chronic changes around the ankle itself. Results Labs 04/24/25 12:54 04/24/25 07:14 Labs: Short CBC 04/24/25 04/24/25 Range/Units 07:14 12:54 WBC 10.0 (4.5-10.0) K/mm3 Hgb 7.6 L 7.4 L (12.0-15.0) g/dL Hct 26.0 L 24.6 L (37.0-47.0) % Plt Count 289 (150-375) k/mm3 BMP 04/24/25 07:14 Sodium 136 L Potassium 4.7 Chloride 98 Carbon Dioxide 25 BUN 38 H Creatinine 6.18 H Glucose 120 H Calcium 8.1 L Cardiac Enzymes 04/24/25 Range/Units 07:14 Total Creatine Kinase 62 (30-135) U/L Urine 04/23/25 Range/Units 16:20 Urine Color Other (Yellow) Urine Appearance Turbid H (Clear) Urine pH 7.0 (5.0-9.0) Ur Specific [place] 1.020 (1.001-1.035) Urine Protein 4+ H (Negative) mg/dL Urine Glucose (UA) Negative (Negative) mg/dL
[2025-04-24] MEDS: cefTRIAXone 1 GM in SODIUM CHLORIDE 0.9% IV 50 ML 100 ML IVPB (17:09)
[2025-04-24 18:13] LABS: Hematocrit 26.1 % (37.0-47.0); Hemoglobin 7.8 g/dL (12.0-15.0)
[2025-04-24] MEDS: VANCOMYCIN 500 MG/NS 100 ML 500 MG/100 ML BAG 100 MG IVPB (21:00)
[2025-04-24] MEDS: ATORVASTATIN 20 MG TABLET PO (21:21)
[2025-04-25] VITALS (11 sets, daily range): BP systolic 123–151; BP diastolic 49–61; PULSE 49–96; RESP 13–20; TEMP 36.1–36.6; O2SAT 93–100
[2025-04-25 00:57] LABS: Hematocrit 25.1 % (37.0-47.0); Hemoglobin 7.5 g/dL (12.0-15.0)
[2025-04-25] MEDS: metroNIDAZOLE 500 MG/ISO 100ML 500 MG/100 ML BAG 100 MG IVPB ×3 (05:21→21:48)
[2025-04-25] MEDS: LEVOTHYROXINE SODIUM 100 MCG TABLET 200 MCG PO (05:33)
[2025-04-25] MEDS: FLUTICASONE/SALMETEROL 115-21 MCG INHALER 1 PUFF 2 PUFF INHALATION ×2 (07:18→21:00)
[2025-04-25 07:42] LABS: Hematocrit 26.5 % (37.0-47.0); Hemoglobin 7.8 g/dL (12.0-15.0); Immature Granulocyte Percent A 0.5 % (0-0.5); Lymphocytes Absolute Auto 1.05 K/mm3 (0.9-3.2); Mean Corpuscular HGB Conc 29.4 g/dl (32-36); Mean Corpuscular Hemoglobin 25.8 pg (26-34); Mean Corpuscular Volume 87.7 fl (80-100); Nucleated Red Blood Cells Absolute Auto 0.020 K/mm3 (0.0-0.012); Nucleated Red Blood Cells Perc 0.2 % (0.0-0.2); Platelet Count Result 281 k/mm3 (150-375); Red Blood Count 3.02 M/mm3 (4.2-5.4); White Blood Count 8.4 K/mm3 (4.5-10.0)
--- NOTE | 2025-04-25 08:04 | P.PNIM_ITS ---
Assessment and Plan Assessment and Plan (1) Acute UTI: Code(s): N39.0 - Urinary tract infection, site not specified Status: Acute Assessment and Plan: * Started on Rocephin in ER * blood cultures pending * Urine culture - gram (-) bacilli * check daily lactic acid levels. * patient's blood pressure stable at 147/55 and heart rate is 54. Afebrile, WBC 10.9. * last month her urine culture grew mixed urogenital agusto (2) Leg wound, right: Code(s): S81.801A - Unspecified open wound, right lower leg, initial encounter Status: Acute Assessment and Plan: * chronic wound to right lower extremity * Started on vancomycin * wound and blood cultures pending * wound Care consulted * Not given any IV fluids as she is a dialysis patient. * the patient is also on p.o. clindamycin from home please clarify if he patient is still taking this and for what purpose . * Lactic 2.2 ->2.1 -> 2.9 * ID consult placed by admitting provider * Add Flagyl to Vancomycin, continue Rocephin * Monitor blood cultures (3) ESRD on hemodialysis: Code(s): N18.6 - End stage renal disease; Z99.2 - Dependence on renal dialysis Status: Acute Assessment and Plan: * left upper arm AV fistula has a positive bruit and thrill. * nephrology consulted, following * continue to monitor magnesium phos and other electrolytes * the patient has dialysis on Sunday outpatient (4) Hypothyroidism (acquired): Onset Date: ~12/23/22 Code(s): E03.9 - Hypothyroidism, unspecified Status: Acute Assessment and Plan: * continue levothyroxine (5) Diabetes: Code(s): E11.9 - Type 2 diabetes mellitus without complications Status: Acute Assessment and Plan: * Accu-Cheks AC and HS with sliding scale insulin and hypoglycemic protocol. * diabetic diet * pharmacy to reduce long-acting home insulin by 20%. (6) COPD (chronic obstructive pulmonary disease): Qualifiers: COPD type: unspecified COPD Qualified Code(s): J44.9 - Chronic obstructive pulmonary disease, unspecified Code(s): J44.9 - Chronic obstructive pulmonary disease, unspecified Status: Acute Assessment and Plan: * continue with home inhalers including albuterol and budesonide. * continue singular (7) RAINA (obstructive sleep apnea): Code(s): G47.33 - Obstructive sleep apnea (adult) (pediatric) Status: Acute Assessment and Plan: * titrate CPAP to home settings (8) Generalized weakness: Code(s): R53.1 - Weakness Status: Acute Assessment and Plan: * PT and OT to evaluate patient. (9) Atrial fibrillation: Code(s): I48.91 - Unspecified atrial fibrillation Status: Chronic Assessment and Plan: * patient in sinus bradycardia * continue metoprolol - Hold if HR < 50 * continue amiodarone, apixaban * HR is 54 an EKG was sinus bradycardia (10) Hyperlipidemia LDL goal <70: Code(s): E78.5 - Hyperlipidemia, unspecified Status: Acute Assessment and Plan: * continue with colestipol (11) Hypertension: Qualifiers: Hypertension type: unspecified Qualified Code(s): I10 - Essential (primary) hypertension Code(s): I10 - Essential (primary) hypertension Status: Chronic Assessment and Plan: * continue with hydralazine * continue with metoprolol if blood pressure allows. Currently blood pressure is 147/55. Hold if heart rate less than 50 (12) RLS (restless legs syndrome): Code(s): G25.81 - Restless legs syndrome Status: Acute Assessment and Plan: * continue to open her (13) Insomnia: Code(s): G47.00 - Insomnia, unspecified Status: Acute Assessment and Plan: * continue trazodone Plan I did speak with the pharmacist today and she has stated that the Infectious Dis ease pharmacist would take a look at the antibiotic and determine if clindamycin is on her home medication list needs to be continued. The patient has a history of DVT but is already apixaban. Subjective Date/time seen: 04/25/25 08:04 Interval history: 74-year-old female patient who has a history of AFib, DVT, end-stage renal disease on dialysis, congestive heart failure, COPD diabetes and a history of CVA with expressive aphasia. The patient came in via EMS after an unwitnessed fall that occurred last night. 04/25/2025 Patient sitting comfortably at bedside during exam. Kidney function improved since dialysis yesterday. Urine culture still pending but showing growth of gram (-) bacilli. Continue IV Rocephin. Remains afebrile without leukocytosis. Blood cultures still pending. Pt otherwise stable. Review of Systems Review of Systems: ROS unobtainable: Yes unobtainable due to medical condition and unobtainable due to mental status Exam Const: General: cooperative, awake, Physically active, average body habitus and well nourished Nutritional Appearance: average body habitus and well nourished Orientation/consciousness: oriented to person, oriented to place, oriented to time and patient oriented x3 HENMT: Head: normal to inspection, No palpable skull fracture present, normocephalic, atraumatic and abrasion Ears: hearing grossly normal bilaterally Eyes: General: appearance normal, both eyes and all related structures Alignment and Position: alignment normal Periorbital: periorbital findings normal Eyelids: eyelids normal Neck: Neck: normal visual inspection, full ROM, no lymphadenopathy and trachea midline Resp: Effort & Inspection: normal respiratory effort Auscultation: clear to auscultation bilaterally Cardio: Palpation: normal PMI Rate: regular rate Rhythm: regular rhythm Heart sounds: S2 normal heart sound present GI: Inspection: normal to inspection Auscultation: normal bowel sounds : General: Yes no CVA tenderness Back/Spine/Pelvis: Back: no CVA tenderness Cervical Spine: cervical ROM normal Skin: General skin exam: normal color Lesions: no lesions Other: Left upper arm AV fistula with positive bruit and thrill. Large right diabetic ulcer noted to posterior ankle exposing the Achilles tendon. The area is approximately 5 by 7 with leong malodorous discharge. The area is unstageable. Erythema noted around the ulcerated area. Please see wound photio There is a dressing over the right forearm that I was unable to remove at this time and the nurse stated that it was a skin tear. Neuro: General: oriented to person, oriented to place, oriented to time and patient oriented x3 Extrem: General: normal to inspection Right upper extremity: normal to inspection and shoulder/upper arm Left upper extremity: normal to inspection and shoulder/upper arm Psych: Affect: normal affect Objective Data Vital Signs Vital Signs: Vital Signs - 24 hr 04/24/25 08:18 04/24/25 08:21 04/24/25 08:42 Temperature Pulse Rate 55 L 55 L Respiratory Rate Blood Pressure Pulse Oximetry 95 Oxygen Delivery Room Air 04/24/25 10:45 04/24/25 10:56 04/24/25 11:15 Temperature 97.5 F L Pulse Rate 54 L 53 L 52 L Respiratory Rate 18 Blood Pressure 134/56 L 144/55 H 132/58 L Pulse Oximetry 97 Oxygen Delivery 04/24/25 11:30 04/24/25 11:45 04/24/25 12:00 Temperature Pulse Rate 50 L 53 L 51 L Respiratory Rate Blood Pressure 135/56 L 136/67 160/63 H Pulse Oximetry Oxygen Delivery 04/24/25 12:15 04/24/25 12:30 04/24/25 12:45 Temperature Pulse Rate 50 L 50 L 49 L Respiratory Rate Blood Pressure 165/68 H 150/54 H 153/68 H Pulse Oximetry Oxygen Delivery 04/24/25 13:00 04/24/25 13:15 04/24/25 13:30 Temperature Pulse Rate 51 L 52 L 52 L Respiratory Rate Blood Pressure 163/66 H 153/75 H 153/65 H Pulse Oximetry Oxygen Delivery 04/24/25 13:45 04/24/25 14:00 04/24/25 14:15 Temperature Pulse Rate 52 L 51 L 52 L Respiratory Rate Blood Pressure 158/67 H 165/55 H 174/59 H Pulse Oximetry Oxygen Delivery 04/24/25 14:27 04/24/25 16:00 04/24/25 19:38 Temperature 96.9 F L Pulse Rate 53 L 53 L Respiratory Rate 18 Blood Pressure 163/66 H 122/95 H Pulse Oximetry 98 96 Oxygen Delivery Room Air 04/24/25 20:00 04/24/25 20:00 04/24/25 20:39 Temperature 97.9 F 97.9 F Pulse Rate 54 L 54 L Respiratory Rate 20 20 Blood Pressure 143/49 H 143/49 H Pulse Oximetry 99 99 Oxygen Delivery Room Air 04/24/25 22:19 04/24/25 23:41 04/25/25 03:48 Temperature 97.1 F L Pulse Rate 67 54 L 64 Respiratory Rate 14 20 16 Blood Pressure 139/50 L Pulse Oximetry 95 95 95 Oxygen Delivery Autopap Autopap 04/25/25 04:00 04/25/25 05:04 04/25/25 07:19 Temperature 97.5 F L 97.5 F L Pulse Rate 52 L 52 L 49 L Respiratory Rate 20 20 13 Blood Pressure 138/49 L 138/49 L Pulse Oximetry 98 98 Oxygen Delivery Intake/Output Intake/Output: Intake & Output 04/22/25 04/23/25 04/24/25 04/25/25 23:59 23:59 23:59 23:59 Intake Total 50 680 250 Output Total 50 1500 Balance 0 -820 250 Meds/Results Medications: Active Medications Generic Name Dose Route Start Last Admin Trade Name Freq PRN Reason Stop Dose Admin Albuterol 2.5 mg 04/24/25 01:37 Albuterol Sulfate Neb 2.5 Mg/3 Ml Inh INHALATION Q4HRT PRN Shortness Of Breath Or Wheezing Amiodarone HCl 200 mg 04/24/25 08:00 04/24/25 08:21 Amiodarone Hcl 200 Mg Tablet PO 200 mg DAILY@0800 ALINA Administration Apixaban 2.5 mg 04/24/25 09:00 04/24/25 21:21 Apixaban 2.5 Mg Tablet PO 2.5 mg Q12HR ALINA Administration Atorvastatin Calcium 20 mg 04/24/25 21:00 04/24/25 21:21 Atorvastatin 20 Mg Tablet PO 20 mg HS ALINA Administration Calcium Acetate 667 mg 04/24/25 09:00 04/24/25 08:21 Calcium Acetate 667 Mg Tablet PO 667 mg DAILY ALINA Administration Colestipol HCl 2 gm 04/24/25 09:00 04/24/25 08:21 Colestipol Hcl 1 Gm Tablet PO 2 gm DAILY ALINA Administration Dextrose 12.5 gm 04/24/25 01:39 Dextrose 50% 25 Gm/50 Ml Syringe IV PUSH PRN PRN Hypoglycemia Protocol Escitalopram Oxalate 5 mg 04/24/25 09:00 04/24/25 08:21 Escitalopram Oxalate 5 Mg Tablet PO 5 mg DAILY ALINA Administration Glucagon 1 mg 04/24/25 01:39 Glucagon For Inj 1 Mg Vial IM PRN PRN Hypoglycemia Protocol Glucose 15 gm 04/24/25 01:39 Glucose Oral Gel 15 Gm Of Glucse In 37.5 Gm Tube PO PRN PRN Hypoglycemia Protocol Hydralazine HCl 25 mg 04/24/25 06:00 04/25/25 05:33 Hydralazine Hcl 25 Mg Tablet PO 25 mg Q8HR ALINA Administration Ceftriaxone Sodium 1 gm/ 50 mls @ 100 mls/hr 04/23/25 17:00 04/24/25 17:09 Sodium Chloride IVPB 100 mls/hr Q24H ALINA Administration Dextrose 1,000 mls @ 100 mls/hr 04/24/25 01:39 Dextrose 5% 1,000 Ml IVPB PRN PRN Hypoglycemia Protocol Albumin Human 50 mls @ 999 mls/hr 04/24/25 09:24 Albutein IVPB 05/24/25 09:23 Q10M PRN HYPOTENSION Metronidazole 500 mg in 100 mls @ 100 mls/hr 04/24/25 14:10 04/25/25 06:21 Flagyl 500 Mg/Iso Soln 100 Ml IVPB Infused Q8HR ALINA Infusion Insulin Aspart 2 - 5 units 04/24/25 08:00 04/24/25 17:08 Insulin Aspart (*Bkc) 100 Units/Ml SUB-Q Not Given TIDWM ALINA Protocol Isosorbide Mononitrate 30 mg 04/24/25 09:00 04/24/25 08:21 Isosorbide Mononitrate 30 Mg Tab.Er.24h PO 30 mg DAILY ALINA Administration Levothyroxine Sodium 200 mcg 04/24/25 06:30 04/25/25 05:33 Levothyroxine Sodium 100 Mcg Tablet PO 200 mcg DAILY@0630 ALINA Administration Lidocaine/Prilocaine 1 each 04/24/25 09:30 Lidocaine/Prilocaine Cream 2.5-2.5% Tube TOPICAL WITH DIALYSIS PRN for dialysis Protocol Lorazepam 0.5 mg 04/24/25 01:37 Lorazepam (*Crx) 0.5 Mg Tablet PO BID PRN Anxiety Metoprolol Succinate 50 mg 04/24/25 09:00 04/24/25 08:18 Metoprolol Succinate Ext Rel 50 Mg Tabcr PO 50 mg QAM ALINA Administration Montelukast Sodium 10 mg 04/24/25 09:00 04/24/25 08:21 Montelukast Sodium 10 Mg Tablet PO 10 mg DAILY ALINA Administration Ropinirole HCl 0.5 mg 04/24/25 09:00 04/24/25 21:21 Ropinirole Hcl 0.5 Mg Tablet PO 0.5 mg Q12HR ALINA Administration Fluticasone/Salmeterol 2 puff 04/24/25 08:00 04/25/25 07:18 Fluticasone/Salmeterol 115-21 Mcg Inhaler 1 Puff INHALATION 2 puff Q12HRT ALINA Administration Tramadol HCl 25 mg 04/24/25 01:47 04/24/25 21:21 Tramadol Hcl (*Crx) 25 Mg Tablet PO 25 mg Q12H PRN Administration Pain Trazodone HCl 50 mg 04/24/25 21:00 04/24/25 21:20 Trazodone Hcl 50 Mg Tablet PO 50 mg QHS ALINA Administration Vancomycin HCl 1 each 04/24/25 08:09 Vancomycin For Hemodialysis IVPB PRN PRN Vancomycin Protocol Radiology Results: ITS Impressions Head CT 04/23/25 14:01 Impression: 1.No acute intracranial abnormality. Cervical Spine CT 04/23/25 14:05 Impression: No acute abnormality. Chest X-Ray 04/23/25 14:20 IMPRESSION: 1. Probable mild interstitial pulmonary edema with persistent right midlung atelectasis and/or scarring. 2. No significant change from prior. Tibia/Fibula X-Ray 04/23/25 14:20 IMPRESSION: 1. No cortical erosions or periosteal reaction to suggest osteitis. No other acute osseous abnormality. 2. 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 Labs Labs: Laboratory Results - last 24 hr 04/24/25 04/24/25 04/24/25 07:14 08:04 09:39 Hgb Hct POC Capillary Glucose 123 H Lactic Acid 2.9 H Random Vancomycin Hep Bs Antigen Negative Hep Bs Antibody Negative 04/24/25 04/24/25 04/24/25 11:49 12:54 16:30 Hgb 7.4 L Hct 24.6 L POC Capillary Glucose 132 H 166 H Lactic Acid Random Vancomycin Hep Bs Antigen Hep Bs Antibody 04/24/25 04/24/25 04/25/25 17:55 20:37 00:51 Hgb 7.8 L 7.5 L Hct 26.1 L 25.1 L POC Capillary Glucose 135 H Lactic Acid Random Vancomycin 13.3 Hep Bs Antigen Hep Bs Antibody Quality VTE Prophylaxis VTE prophylaxis: pharmacologic ordered
[2025-04-25 08:06] LABS: Anisocytosis 1+; Hypochromasia 1+; Macrocytosis Occasional (NORMAL)
[2025-04-25 08:07] LABS: Alanine Aminotransferase 24 U/L (6-35); Albumin Level 3.1 g/dL (3.5-5.1); Alkaline Phosphatase 107 U/L (38-126); Anion Gap 11 mmol/L (4-12); Aspartate Amino Transferase 44 U/L (14-36); Bilirubin,Total 0.9 mg/dL (0.2-1.3); Blood Urea Nitrogen 25 mg/dL (7-17); Calcium 7.8 mg/dL (8.4-10.2); Carbon Dioxide 23 mmol/L (22-30); Chloride 100 mmol/L (98-107); Estimated CRCL calculation 11 ml/min; Estimated Glomerular Filt Rate 10; Glucose 116 mg/dL (65-110); Polychromasia Occasional; Potassium 4.2 mmol/L (3.4-5.0); Sodium 134 mmol/L (137-145); Total Protein 6.9 g/dL (6.3-8.2)
[2025-04-25 08:08] LABS: Basophilic Stippling Occasional; Schistocytes None Seen
[2025-04-25] MEDS: METOPROLOL SUCCINATE EXT REL 50 MG TABCR PO (08:35)
[2025-04-25] MEDS: COLESTIPOL HCL 1 GM TABLET 2 GM PO (08:35)
[2025-04-25] MEDS: AMIODARONE HCL 200 MG TABLET PO (08:35)
[2025-04-25] MEDS: CALCIUM ACETATE 667 MG TABLET PO (08:35)
[2025-04-25] MEDS: ISOSORBIDE MONONITRATE 30 MG TAB.ER.24H PO (08:36)
[2025-04-25] MEDS: APIXABAN 2.5 MG TABLET PO ×2 (08:36→20:59)
[2025-04-25] MEDS: ESCITALOPRAM OXALATE 5 MG TABLET PO (08:36)
[2025-04-25] MEDS: MONTELUKAST SODIUM 10 MG TABLET PO (08:36)
[2025-04-25] MEDS: traMADol HCL (*CRX) 25 MG TABLET PO (08:46)
--- NOTE | 2025-04-25 11:16 | P.PNNP_ITS ---
Progress Note: A&P Assessment and Plan (1) End stage renal disease: Code(s): N18.6 - End stage renal disease Status: Chronic Assessment and Plan: * HD tomorrow * volume status looks okay. * Potassium, bicarbonate, and BUN are looking okay. (2) Frequent falls: Code(s): R29.6 - Repeated falls Status: Acute Assessment and Plan: * as noted by history * PT/OT as tolerated * possible need for placement (3) UTI (urinary tract infection): Code(s): N39.0 - Urinary tract infection, site not specified Status: Acute Assessment and Plan: * admission UA highly suggestive * Blood cultures pending. Urine culture shows Gram-negative bacilli. * on Ceftriaxone (4) Leg wound, right: Code(s): S81.801A - Unspecified open wound, right lower leg, initial encounter Status: Acute Assessment and Plan: * as noted on presentation * follow culture data * on ceftriaxone, vancomycin, Flagyl. (5) Anemia: Code(s): D64.9 - Anemia, unspecified Status: Chronic Assessment and Plan: * due to ESRD * RADHA/Epogen with HD * Hemoglobin stable in the 7 (6) COPD (chronic obstructive pulmonary disease): Qualifiers: COPD type: unspecified COPD Qualified Code(s): J44.9 - Chronic obstructive pulmonary disease, unspecified Code(s): J44.9 - Chronic obstructive pulmonary disease, unspecified Status: Acute Assessment and Plan: * no evidence of exacerbation * continue home inhalers * complicated by RAINA * continue home CPAP * follow respiratory status (7) Hypertension: Qualifiers: Hypertension type: unspecified Qualified Code(s): I10 - Essential (primary) hypertension Code(s): I10 - Essential (primary) hypertension Status: Chronic Assessment and Plan: * systolic 120s to 140s * resume home BP medications * follow trend of hemodynamics (8) Type 2 diabetes mellitus with hyperglycemia: Qualifiers: Diabetes mellitus intermediate manager insulin use: with prison use Qualified Code(s): E11.65 - Type 2 diabetes mellitus with hyperglycemia; Z79.4 - intermediate (current) use of insulin Code(s): E11.65 - Type 2 diabetes mellitus with hyperglycemia Status: Chronic Assessment and Plan: * follow accu-cheks * glycemic control per hospitalist Subjective Date/time seen: 04/25/25 11:16 Interval history: Patient up in a chair. He seems to be feeling okay. Mental status/awareness seems to be about her baseline. Non communicative because of aphasia Review of Systems Cardiovascular: Cardiovascular: Reports no additional cardiovascular complaints Respiratory: Respiratory: Reports no additional respiratory complaints Gastrointestinal: Gastrointestinal: Reports no additional gastrointestinal complaints Genitourinary: Genitourinary: Reports no additional female genitourinary complaints Exam Narrative: WDWN in NAD skin no rash head ncat lungs clear cor reg no rub abd BS+ nontender and soft ext no edema. Objective Data Vital Signs Vital Signs: Vital Signs - 24 hr 04/24/25 11:30 04/24/25 11:45 04/24/25 12:00 Temperature Pulse Rate 50 L 53 L 51 L Respiratory Rate Blood Pressure 135/56 L 136/67 160/63 H Pulse Oximetry Oxygen Delivery 04/24/25 12:15 04/24/25 12:30 04/24/25 12:45 Temperature Pulse Rate 50 L 50 L 49 L Respiratory Rate Blood Pressure 165/68 H 150/54 H 153/68 H Pulse Oximetry Oxygen Delivery 04/24/25 13:00 04/24/25 13:15 04/24/25 13:30 Temperature Pulse Rate 51 L 52 L 52 L Respiratory Rate Blood Pressure 163/66 H 153/75 H 153/65 H Pulse Oximetry Oxygen Delivery 04/24/25 13:45 04/24/25 14:00 04/24/25 14:15 Temperature Pulse Rate 52 L 51 L 52 L Respiratory Rate Blood Pressure 158/67 H 165/55 H 174/59 H Pulse Oximetry Oxygen Delivery 04/24/25 14:27 04/24/25 16:00 04/24/25 19:38 Temperature 96.9 F L Pulse Rate 53 L 53 L Respiratory Rate 18 Blood Pressure 163/66 H 122/95 H Pulse Oximetry 98 96 Oxygen Delivery Room Air 04/24/25 20:00 04/24/25 20:00 04/24/25 20:39 Temperature 97.9 F 97.9 F Pulse Rate 54 L 54 L Respiratory Rate 20 20 Blood Pressure 143/49 H 143/49 H Pulse Oximetry 99 99 Oxygen Delivery Room Air 04/24/25 22:19 04/24/25 23:41 04/25/25 03:48 Temperature 97.1 F L Pulse Rate 67 54 L 64 Respiratory Rate 14 20 16 Blood Pressure 139/50 L Pulse Oximetry 95 95 95 Oxygen Delivery Autopap Autopap 04/25/25 04:00 04/25/25 05:04 04/25/25 07:19 Temperature 97.5 F L 97.5 F L Pulse Rate 52 L 52 L 49 L Respiratory Rate 20 20 13 Blood Pressure 138/49 L 138/49 L Pulse Oximetry 98 98 Oxygen Delivery 04/25/25 08:00 04/25/25 08:35 04/25/25 08:35 Temperature 97.0 F L Pulse Rate 52 L 52 L 52 L Respiratory Rate 18 Blood Pressure 137/54 L Pulse Oximetry 93 Oxygen Delivery Intake/Output Intake/Output: Intake & Output 04/22/25 04/23/25 04/24/25 04/25/25 23:59 23:59 23:59 23:59 Intake Total 50 680 490 Output Total 50 1500 Balance 0 -820 490 Meds/Results Medications: Active Medications Generic Name Dose Route Start Last Admin Trade Name Freq PRN Reason Stop Dose Admin Albuterol 2.5 mg 04/24/25 01:37 Albuterol Sulfate Neb 2.5 Mg/3 Ml Inh INHALATION Q4HRT PRN Shortness Of Breath Or Wheezing Amiodarone HCl 200 mg 04/24/25 08:00 04/25/25 08:35 Amiodarone Hcl 200 Mg Tablet PO 200 mg DAILY@0800 ALINA Administration Apixaban 2.5 mg 04/24/25 09:00 04/25/25 08:36 Apixaban 2.5 Mg Tablet PO 2.5 mg Q12HR ALINA Administration Atorvastatin Calcium 20 mg 04/24/25 21:00 04/24/25 21:21 Atorvastatin 20 Mg Tablet PO 20 mg HS ALINA Administration Calcium Acetate 667 mg 04/24/25 09:00 04/25/25 08:35 Calcium Acetate 667 Mg Tablet PO 667 mg DAILY ALINA Administration Colestipol HCl 2 gm 04/24/25 09:00 04/25/25 08:35 Colestipol Hcl 1 Gm Tablet PO 2 gm DAILY ALINA Administration Dextrose 12.5 gm 04/24/25 01:39 Dextrose 50% 25 Gm/50 Ml Syringe IV PUSH PRN PRN Hypoglycemia Protocol Escitalopram Oxalate 5 mg 04/24/25 09:00 04/25/25 08:36 Escitalopram Oxalate 5 Mg Tablet PO 5 mg DAILY ALINA Administration Glucagon 1 mg 04/24/25 01:39 Glucagon For Inj 1 Mg Vial IM PRN PRN Hypoglycemia Protocol Glucose 15 gm 04/24/25 01:39 Glucose Oral Gel 15 Gm Of Glucse In 37.5 Gm Tube PO PRN PRN Hypoglycemia Protocol Hydralazine HCl 25 mg 04/24/25 06:00 04/25/25 05:33 Hydralazine Hcl 25 Mg Tablet PO 25 mg Q8HR ALINA Administration Ceftriaxone Sodium 1 gm/ 50 mls @ 100 mls/hr 04/23/25 17:00 04/24/25 17:09 Sodium Chloride IVPB 100 mls/hr Q24H ALINA Administration Dextrose 1,000 mls @ 100 mls/hr 04/24/25 01:39 Dextrose 5% 1,000 Ml IVPB PRN PRN Hypoglycemia Protocol Albumin Human 50 mls @ 999 mls/hr 04/24/25 09:24 Albutein IVPB 05/24/25 09:23 Q10M PRN HYPOTENSION Metronidazole 500 mg in 100 mls @ 100 mls/hr 04/24/25 14:10 04/25/25 06:21 Flagyl 500 Mg/Iso Soln 100 Ml IVPB Infused Q8HR ALINA Infusion Insulin Aspart 2 - 5 units 04/24/25 08:00 04/25/25 08:36 Insulin Aspart (*Bkc) 100 Units/Ml SUB-Q Not Given TIDWM ALINA Protocol Isosorbide Mononitrate 30 mg 04/24/25 09:00 04/25/25 08:36 Isosorbide Mononitrate 30 Mg Tab.Er.24h PO 30 mg DAILY ALINA Administration Levothyroxine Sodium 200 mcg 04/24/25 06:30 04/25/25 05:33 Levothyroxine Sodium 100 Mcg Tablet PO 200 mcg DAILY@0630 ALINA Administration Lidocaine/Prilocaine 1 each 04/24/25 09:30 Lidocaine/Prilocaine Cream 2.5-2.5% Tube TOPICAL WITH DIALYSIS PRN for dialysis Protocol Lorazepam 0.5 mg 04/24/25 01:37 Lorazepam (*Crx) 0.5 Mg Tablet PO BID PRN Anxiety Metoprolol Succinate 50 mg 04/24/25 09:00 04/25/25 08:35 Metoprolol Succinate Ext Rel 50 Mg Tabcr PO 50 mg QAM ALINA Administration Montelukast Sodium 10 mg 04/24/25 09:00 04/25/25 08:36 Montelukast Sodium 10 Mg Tablet PO 10 mg DAILY ALINA Administration Ropinirole HCl 0.5 mg 04/24/25 09:00 04/25/25 08:36 Ropinirole Hcl 0.5 Mg Tablet PO 0.5 mg Q12HR ALINA Administration Fluticasone/Salmeterol 2 puff 04/24/25 08:00 04/25/25 07:18 Fluticasone/Salmeterol 115-21 Mcg Inhaler 1 Puff INHALATION 2 puff Q12HRT ALINA Administration Tramadol HCl 25 mg 04/24/25 01:47 04/25/25 08:46 Tramadol Hcl (*Crx) 25 Mg Tablet PO 25 mg Q12H PRN Administration Pain Trazodone HCl 50 mg 04/24/25 21:00 04/24/25 21:20 Trazodone Hcl 50 Mg Tablet PO 50 mg QHS ALINA Administration Vancomycin HCl 1 each 04/24/25 08:09 Vancomycin For Hemodialysis IVPB PRN PRN Vancomycin Protocol Radiology Results: ITS Impressions Head CT 04/23/25 14:01 Impression: 1.No acute intracranial abnormality. Cervical Spine CT 04/23/25 14:05 Impression: No acute abnormality. Chest X-Ray 04/23/25 14:20 IMPRESSION: 1. Probable mild interstitial pulmonary edema with persistent right midlung atelectasis and/or scarring. 2. No significant change from prior. Tibia/Fibula X-Ray 04/23/25 14:20 IMPRESSION: 1. No cortical erosions or periosteal reaction to suggest osteitis. No other acute osseous abnormality. 2. 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 Labs Labs: Laboratory Results - last 24 hr 04/24/25 04/24/25 04/24/25 11:49 12:54 16:30 WBC RBC Hgb 7.4 L Hct 24.6 L MCV MCH MCHC RDW Plt Count MPV Immature Gran % (Auto) Neut % (Auto) Lymph % (Auto) [place] % (Auto) Eos % (Auto) Baso % (Auto) Lymph # (Auto) [place] # (Auto) Eos # (Auto) Baso # (Auto) Abs Immat Gran (auto) Absolute Neuts (auto) Absolute Nucleated RBC Band Neutrophils % Nucleated RBC % Platelet Estimate Large Platelets Polychromasia Hypochromasia Basophilic Stippling Anisocytosis Macrocytosis Schistocytes Sodium Potassium Chloride Carbon Dioxide Anion Gap BUN Creatinine Estim Creat Clear Calc Estimated GFR Glucose POC Capillary Glucose 132 H 166 H Calcium Total Bilirubin AST ALT Alkaline Phosphatase Total Protein Albumin Random Vancomycin 04/24/25 04/24/25 04/25/25 17:55 20:37 00:51 WBC RBC Hgb 7.8 L 7.5 L Hct 26.1 L 25.1 L MCV MCH MCHC RDW Plt Count MPV Immature Gran % (Auto) Neut % (Auto) Lymph % (Auto) [place] % (Auto) Eos % (Auto) Baso % (Auto) Lymph # (Auto) [place] # (Auto) Eos # (Auto) Baso # (Auto) Abs Immat Gran (auto) Absolute Neuts (auto) Absolute Nucleated RBC Band Neutrophils % Nucleated RBC % Platelet Estimate Large Platelets Polychromasia Hypochromasia Basophilic Stippling Anisocytosis Macrocytosis Schistocytes Sodium Potassium Chloride Carbon Dioxide Anion Gap BUN Creatinine Estim Creat Clear Calc Estimated GFR Glucose POC Capillary Glucose 135 H Calcium Total Bilirubin AST ALT Alkaline Phosphatase Total Protein Albumin Random Vancomycin 13.3 04/25/25 04/25/25 07:37 08:30 WBC 8.4 RBC 3.02 L Hgb 7.8 L Hct 26.5 L MCV 87.7 MCH 25.8 L MCHC 29.4 L RDW 19.4 H Plt Count 281 MPV 9.8 Immature Gran % (Auto) 0.5 Neut % (Auto) 71.4 Lymph % (Auto) 12.4 L [place] % (Auto) 13.9 H Eos % (Auto) 1.2 Baso % (Auto) 0.6 Lymph # (Auto) 1.05 [place] # (Auto) 1.2 H Eos # (Auto) 0.1 Baso # (Auto) 0.1 Abs Immat Gran (auto) 0.04 H Absolute Neuts (auto) 6.0 Absolute Nucleated RBC 0.020 H Band Neutrophils % Not Reportable Nucleated RBC % 0.2 Platelet Estimate Adequate Large Platelets Present Polychromasia Occasional Hypochromasia 1+ Basophilic Stippling Occasional Anisocytosis 1+ Macrocytosis Occasional Schistocytes None seen Sodium 134 L Potassium 4.2 Chloride 100 Carbon Dioxide 23 Anion Gap 11 BUN 25 H D Creatinine 4.14 H Estim Creat Clear Calc 11 Estimated GFR 10 L Glucose 116 H POC Capillary Glucose 123 H Calcium 7.8 L Total Bilirubin 0.9 AST 44 H ALT 24 Alkaline Phosphatase 107 Total Protein 6.9 Albumin 3.1 L Random Vancomycin
[2025-04-25] MEDS: cefTRIAXone 1 GM in SODIUM CHLORIDE 0.9% IV 50 ML 100 ML IVPB (16:39)
[2025-04-25] MEDS: ATORVASTATIN 20 MG TABLET PO (20:59)
--- NOTE | 2025-04-25 20:59 | PM.EVENT ---
Event Note Event Note Event Note: The patient daughter told me that the patient has expressed her wishes that she wants her code status to be full code. Order has been changed.
[2025-04-25] MEDS: LORazepam (*CRX) 0.5 MG TABLET PO (21:41)
[2025-04-26] VITALS (25 sets, daily range): BP systolic 101–177; BP diastolic 50–109; PULSE 54–68; RESP 14–17; TEMP 36–37; O2SAT 95–100
[2025-04-26] MEDS: LEVOTHYROXINE SODIUM 100 MCG TABLET 200 MCG PO (05:38)
[2025-04-26] MEDS: metroNIDAZOLE 500 MG/ISO 100ML 500 MG/100 ML BAG 100 MG IVPB ×3 (05:39→22:04)
[2025-04-26 06:33] LABS: Hematocrit 26.8 % (37.0-47.0); Hemoglobin 7.7 g/dL (12.0-15.0); Immature Granulocyte Percent A 0.9 % (0-0.5); Lymphocytes Absolute Auto 1.05 K/mm3 (0.9-3.2); Mean Corpuscular HGB Conc 28.7 g/dl (32-36); Mean Corpuscular Hemoglobin 25.6 pg (26-34); Mean Corpuscular Volume 89.0 fl (80-100); Nucleated Red Blood Cells Absolute Auto 0.020 K/mm3 (0.0-0.012); Nucleated Red Blood Cells Perc 0.2 % (0.0-0.2); Platelet Count Result 280 k/mm3 (150-375); Red Blood Count 3.01 M/mm3 (4.2-5.4); White Blood Count 8.5 K/mm3 (4.5-10.0)
[2025-04-26 06:58] LABS: Alanine Aminotransferase 34 U/L (6-35); Albumin Level 3.1 g/dL (3.5-5.1); Alkaline Phosphatase 122 U/L (38-126); Anion Gap 14 mmol/L (4-12); Aspartate Amino Transferase 61 U/L (14-36); Bilirubin,Total 0.7 mg/dL (0.2-1.3); Blood Urea Nitrogen 35 mg/dL (7-17); Calcium 7.8 mg/dL (8.4-10.2); Carbon Dioxide 20 mmol/L (22-30); Chloride 98 mmol/L (98-107); Estimated CRCL calculation 9 ml/min; Estimated Glomerular Filt Rate 8; Glucose 161 mg/dL (65-110); Potassium 4.3 mmol/L (3.4-5.0); Sodium 132 mmol/L (137-145); Total Protein 6.9 g/dL (6.3-8.2)
[2025-04-26 07:11] LABS: Anisocytosis 1+; Burr Cells 1+; Hypochromasia 2+
[2025-04-26 07:12] LABS: Macrocytosis Occasional (NORMAL); Ovalocytes Occasional; Schistocytes None Seen; Target Cells Occasional
--- NOTE | 2025-04-26 07:12 | P.PNIM_ITS ---
Assessment and Plan Assessment and Plan (1) Acute UTI: Code(s): N39.0 - Urinary tract infection, site not specified Status: Acute Assessment and Plan: * Started on Rocephin in ER * blood cultures pending * Urine culture - klebsiella pneumoniae * check daily lactic acid levels. * patient's blood pressure stable at 147/55 and heart rate is 54. Afebrile, WBC 10.9. * last month her urine culture grew mixed urogenital agusto * Will switch to PO augmentin (2) Leg wound, right: Code(s): S81.801A - Unspecified open wound, right lower leg, initial encounter Status: Acute Assessment and Plan: * chronic wound to right lower extremity * Started on vancomycin * wound and blood cultures pending * wound Care consulted * Not given any IV fluids as she is a dialysis patient. * the patient is also on p.o. clindamycin from home please clarify if he patient is still taking this and for what purpose . * Lactic 2.2 ->2.1 -> 2.6 * ID consult placed by admitting provider * Add Flagyl to Vancomycin, continue Rocephin * Monitor blood cultures (3) ESRD on hemodialysis: Code(s): N18.6 - End stage renal disease; Z99.2 - Dependence on renal dialysis Status: Acute Assessment and Plan: * left upper arm AV fistula has a positive bruit and thrill. * nephrology consulted, following * continue to monitor magnesium phos and other electrolytes * the patient has dialysis on Sunday outpatient (4) Hypothyroidism (acquired): Onset Date: ~12/23/22 Code(s): E03.9 - Hypothyroidism, unspecified Status: Acute Assessment and Plan: * continue levothyroxine (5) Diabetes: Code(s): E11.9 - Type 2 diabetes mellitus without complications Status: Acute Assessment and Plan: * Accu-Cheks AC and HS with sliding scale insulin and hypoglycemic protocol. * diabetic diet * pharmacy to reduce long-acting home insulin by 20%. (6) COPD (chronic obstructive pulmonary disease): Qualifiers: COPD type: unspecified COPD Qualified Code(s): J44.9 - Chronic obstructive pulmonary disease, unspecified Code(s): J44.9 - Chronic obstructive pulmonary disease, unspecified Status: Acute Assessment and Plan: * continue with home inhalers including albuterol and budesonide. * continue singular (7) RAINA (obstructive sleep apnea): Code(s): G47.33 - Obstructive sleep apnea (adult) (pediatric) Status: Acute Assessment and Plan: * titrate CPAP to home settings (8) Generalized weakness: Code(s): R53.1 - Weakness Status: Acute Assessment and Plan: * PT and OT to evaluate patient. (9) Atrial fibrillation: Code(s): I48.91 - Unspecified atrial fibrillation Status: Chronic Assessment and Plan: * patient in sinus bradycardia * continue metoprolol - Hold if HR < 50 * continue amiodarone, apixaban * HR is 54 an EKG was sinus bradycardia (10) Hyperlipidemia LDL goal <70: Code(s): E78.5 - Hyperlipidemia, unspecified Status: Acute Assessment and Plan: * continue with colestipol (11) Hypertension: Qualifiers: Hypertension type: unspecified Qualified Code(s): I10 - Essential (primary) hypertension Code(s): I10 - Essential (primary) hypertension Status: Chronic Assessment and Plan: * continue with hydralazine * continue with metoprolol if blood pressure allows. Currently blood pressure is 147/55. Hold if heart rate less than 50 (12) RLS (restless legs syndrome): Code(s): G25.81 - Restless legs syndrome Status: Acute Assessment and Plan: * continue to open her (13) Insomnia: Code(s): G47.00 - Insomnia, unspecified Status: Acute Assessment and Plan: * continue trazodone Plan I did speak with the pharmacist today and she has stated that the Infectious Disease pharmacist would take a look at the antibiotic and determine if clindamycin is on her home medication list needs to be continued. The patient has a history of DVT but is already apixaban. Subjective Date/time seen: 04/26/25 07:12 Interval history: 74-year-old female patient who has a history of AFib, DVT, end-stage renal disease on dialysis, congestive heart failure, COPD diabetes and a history of CVA with expressive aphasia. The patient came in via EMS after an unwitnessed fall that occurred last night. 04/26/2025 Patient sitting comfortably at bedside during exam. Undergoing dialysis at this time. Urine culture still pending but showing growth of klebsiella pneumoniae - will switch to PO augmentin in preparation for discharge. Anticipate DC tomorrow Review of Systems Review of Systems: ROS unobtainable: Yes unobtainable due to medical condition and unobtainable due to mental status Exam Const: General: cooperative, awake, Physically active, average body habitus and well nourished Nutritional Appearance: average body habitus and well nourished Orientation/consciousness: oriented to person, oriented to place, o riented to time and patient oriented x3 HENMT: Head: normal to inspection, No palpable skull fracture present, normocephalic, atraumatic and abrasion Ears: hearing grossly normal bilaterally Eyes: General: appearance normal, both eyes and all related structures Alignment and Position: alignment normal Periorbital: periorbital findings normal Eyelids: eyelids normal Neck: Neck: normal visual inspection, full ROM, no lymphadenopathy and trachea midline Resp: Effort & Inspection: normal respiratory effort Auscultation: clear to auscultation bilaterally Cardio: Palpation: normal PMI Rate: regular rate Rhythm: regular rhythm Heart sounds: S2 normal heart sound present GI: Inspection: normal to inspection Auscultation: normal bowel sounds : General: Yes no CVA tenderness Back/Spine/Pelvis: Back: no CVA tenderness Cervical Spine: cervical ROM normal Skin: General skin exam: normal color Lesions: no lesions Other: Left upper arm AV fistula with positive bruit and thrill. Large right diabetic ulcer noted to posterior ankle exposing the Achilles tendon. The area is approximately 5 by 7 with leong malodorous discharge. The area is unstageable. Erythema noted around the ulcerated area. Please see wound photio There is a dressing over the right forearm that I was unable to remove at this time and the nurse stated that it was a skin tear. Neuro: General: oriented to person, oriented to place, oriented to time and patient oriented x3 Extrem: General: normal to inspection Right upper extremity: normal to inspection and shoulder/upper arm Left upper extremity: normal to inspection and shoulder/upper arm Psych: Affect: normal affect Objective Data Vital Signs Vital Signs: Vital Signs - 24 hr 04/25/25 07:19 04/25/25 08:00 04/25/25 08:35 Temperature 97.0 F L Pulse Rate 49 L 52 L 52 L Respiratory Rate 13 18 Blood Pressure 137/54 L Pulse Oximetry 93 Oxygen Delivery 04/25/25 08:35 04/25/25 11:45 04/25/25 12:00 Temperature 97.0 F L Pulse Rate 52 L 96 Respiratory Rate 14 Blood Pressure 151/61 H Pulse Oximetry 100 Oxygen Delivery Room Air 04/25/25 14:00 04/25/25 16:00 04/25/25 20:13 Temperature 97.5 F L 97.8 F 97.7 F Pulse Rate 52 L 51 L 55 L Respiratory Rate 14 14 16 Blood Pressure 123/51 L 142/58 H 136/52 L Pulse Oximetry 97 98 98 Oxygen Delivery 04/25/25 22:00 04/26/25 00:36 04/26/25 00:46 Temperature 97.7 F Pulse Rate 64 54 L Respiratory Rate 14 17 Blood Pressure 136/50 L Pulse Oximetry 98 95 98 Oxygen Delivery Autopap Autopap 04/26/25 05:30 Temperature 97.4 F L Pulse Rate 57 L Respiratory Rate 16 Blood Pressure 138/57 L Pulse Oximetry 97 Oxygen Delivery Intake/Output Intake/Output: Intake & Output 04/23/25 04/24/25 04/25/25 04/26/25 23:59 23:59 23:59 23:59 Intake Total 50 730 1220 220 Output Total 50 1500 Balance 0 -770 1220 220 Meds/Results Medications: Active Medications Generic Name Dose Route Start Last Admin Trade Name Freq PRN Reason Stop Dose Admin Albuterol 2.5 mg 04/24/25 01:37 Albuterol Sulfate Neb 2.5 Mg/3 Ml Inh INHALATION Q4HRT PRN Shortness Of Breath Or Wheezing Amiodarone HCl 200 mg 04/24/25 08:00 04/25/25 08:35 Amiodarone Hcl 200 Mg Tablet PO 200 mg DAILY@0800 ALINA Administration Apixaban 2.5 mg 04/24/25 09:00 04/25/25 20:59 Apixaban 2.5 Mg Tablet PO 2.5 mg Q12HR ALINA Administration Atorvastatin Calcium 20 mg 04/24/25 21:00 04/25/25 20:59 Atorvastatin 20 Mg Tablet PO 20 mg HS ALINA Administration Calcium Acetate 667 mg 04/24/25 09:00 04/25/25 08:35 Calcium Acetate 667 Mg Tablet PO 667 mg DAILY ALINA Administration Colestipol HCl 2 gm 04/24/25 09:00 04/25/25 08:35 Colestipol Hcl 1 Gm Tablet PO 2 gm DAILY ALINA Administration Dextrose 12.5 gm 04/24/25 01:39 Dextrose 50% 25 Gm/50 Ml Syringe IV PUSH PRN PRN Hypoglycemia Protocol Escitalopram Oxalate 5 mg 04/24/25 09:00 04/25/25 08:36 Escitalopram Oxalate 5 Mg Tablet PO 5 mg DAILY ALINA Administration Glucagon 1 mg 04/24/25 01:39 Glucagon For Inj 1 Mg Vial IM PRN PRN Hypoglycemia Protocol Glucose 15 gm 04/24/25 01:39 Glucose Oral Gel 15 Gm Of Glucse In 37.5 Gm Tube PO PRN PRN Hypoglycemia Protocol Hydralazine HCl 25 mg 04/24/25 06:00 04/26/25 05:39 Hydralazine Hcl 25 Mg Tablet PO 25 mg Q8HR ALINA Administration Ceftriaxone Sodium 1 gm/ 50 mls @ 100 mls/hr 04/23/25 17:00 04/25/25 17:09 Sodium Chloride IVPB Infused Q24H ALINA Infusion Dextrose 1,000 mls @ 100 mls/hr 04/24/25 01:39 Dextrose 5% 1,000 Ml IVPB PRN PRN Hypoglycemia Protocol Albumin Human 50 mls @ 999 mls/hr 04/24/25 09:24 Albutein IVPB 05/24/25 09:23 Q10M PRN HYPOTENSION Metronidazole 500 mg in 100 mls @ 100 mls/hr 04/24/25 14:10 04/26/25 06:39 Flagyl 500 Mg/Iso Soln 100 Ml IVPB Infused Q8HR ALINA Infusion Albumin Human 50 mls @ 999 mls/hr 04/25/25 11:18 Albutein IVPB 04/26/25 11:17 Q10M PRN HYPOTENSION Insulin Aspart 2 - 5 units 04/24/25 08:00 04/25/25 17:52 Insulin Aspart (*Bkc) 100 Units/Ml SUB-Q Not Given TIDWM ALINA Protocol Isosorbide Mononitrate 30 mg 04/24/25 09:00 04/25/25 08:36 Isosorbide Mononitrate 30 Mg Tab.Er.24h PO 30 mg DAILY ALINA Administration Levothyroxine Sodium 200 mcg 04/24/25 06:30 04/26/25 05:38 Levothyroxine Sodium 100 Mcg Tablet PO 200 mcg DAILY@0630 ALINA Administration Lidocaine/Prilocaine 1 each 04/24/25 09:30 Lidocaine/Prilocaine Cream 2.5-2.5% Tube TOPICAL WITH DIALYSIS PRN for dialysis Protocol Lorazepam 0.5 mg 04/24/25 01:37 04/25/25 21:41 Lorazepam (*Crx) 0.5 Mg Tablet PO 0.5 mg BID PRN Administration Anxiety Metoprolol Succinate 50 mg 04/24/25 09:00 04/25/25 08:35 Metoprolol Succinate Ext Rel 50 Mg Tabcr PO 50 mg QAM ALINA Administration Montelukast Sodium 10 mg 04/24/25 09:00 04/25/25 08:36 Montelukast Sodium 10 Mg Tablet PO 10 mg DAILY ALINA Administration Ropinirole HCl 0.5 mg 04/24/25 09:00 04/25/25 20:59 Ropinirole Hcl 0.5 Mg Tablet PO 0.5 mg Q12HR ALINA Administration Fluticasone/Salmeterol 2 puff 04/24/25 08:00 04/25/25 21:00 Fluticasone/Salmeterol 115-21 Mcg Inhaler 1 Puff INHALATION 2 puff Q12HRT ALINA Administration Tramadol HCl 25 mg 04/24/25 01:47 04/25/25 08:46 Tramadol Hcl (*Crx) 25 Mg Tablet PO 25 mg Q12H PRN Administration Pain Trazodone HCl 50 mg 04/24/25 21:00 04/25/25 20:59 Trazodone Hcl 50 Mg Tablet PO 50 mg QHS ALINA Administration Vancomycin HCl 1 each 04/24/25 08:09 Vancomycin For Hemodialysis IVPB PRN PRN Vancomycin Protocol Radiology Results: ITS Impressions Head CT 04/23/25 14:01 Impression: 1.No acute intracranial abnormality. Cervical Spine CT 04/23/25 14:05 Impression: No acute abnormality. Chest X-Ray 04/23/25 14:20 IMPRESSION: 1. Probable mild interstitial pulmonary edema with persistent right midlung atelectasis and/or scarring. 2. No significant change from prior. Tibia/Fibula X-Ray 04/23/25 14:20 IMPRESSION: 1. No cortical erosions or periosteal reaction to suggest osteitis. No other acute osseous abnormality. 2. 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 Labs Labs: Laboratory Results - last 24 hr 04/25/25 04/25/25 04/25/25 07:37 08:30 11:28 WBC 8.4 RBC 3.02 L Hgb 7.8 L Hct 26.5 L MCV 87.7 MCH 25.8 L MCHC 29.4 L RDW 19.4 H Plt Count 281 MPV 9.8 Immature Gran % (Auto) 0.5 Neut % (Auto) 71.4 Lymph % (Auto) 12.4 L Mckean % (Auto) 13.9 H Eos % (Auto) 1.2 Baso % (Auto) 0.6 Lymph # (Auto) 1.05 Mckean # (Auto) 1.2 H Eos # (Auto) 0.1 Baso # (Auto) 0.1 Abs Immat Gran (auto) 0.04 H Absolute Neuts (auto) 6.0 Absolute Nucleated RBC 0.020 H Band Neutrophils % Not Reportable Nucleated RBC % 0.2 Platelet Estimate Adequate Large Platelets Present Polychromasia Occasional Hypochromasia 1+ Basophilic Stippling Occasional Anisocytosis 1+ Macrocytosis Occasional Schistocytes None seen Sodium 134 L Potassium 4.2 Chloride 100 Carbon Dioxide 23 Anion Gap 11 BUN 25 H D Creatinine 4.14 H Estim Creat Clear Calc 11 Estimated GFR 10 L Glucose 116 H POC Capillary Glucose 123 H 173 H Lactic Acid Calcium 7.8 L Phosphorus Total Bilirubin 0.9 AST 44 H ALT 24 Alkaline Phosphatase 107 Total Protein 6.9 Albumin 3.1 L Random Vancomycin 04/25/25 04/25/25 04/25/25 12:21 14:32 16:25 WBC RBC Hgb Hct MCV MCH MCHC RDW Plt Count MPV Immature Gran % (Auto) Neut % (Auto) Lymph % (Auto) Mckean % (Auto) Eos % (Auto) Baso % (Auto) Lymph # (Auto) Mckean # (Auto) Eos # (Auto) Baso # (Auto) Abs Immat Gran (auto) Absolute Neuts (auto) Absolute Nucleated RBC Band Neutrophils % Nucleated RBC % Platelet Estimate Large Platelets Polychromasia Hypochromasia Basophilic Stippling Anisocytosis Macrocytosis Schistocytes Sodium Potassium Chloride Carbon Dioxide Anion Gap BUN Creatinine Estim Creat Clear Calc Estimated GFR Glucose POC Capillary Glucose 190 H Lactic Acid 2.6 H 2.6 H Calcium Phosphorus Total Bilirubin AST ALT Alkaline Phosphatase Total Protein Albumin Random Vancomycin 04/25/25 04/26/25 20:19 05:23 WBC 8.5 RBC 3.01 L Hgb 7.7 L Hct 26.8 L MCV 89.0 MCH 25.6 L MCHC 28.7 L RDW 19.6 H Plt Count 280 MPV 10.1 Immature Gran % (Auto) 0.9 H Neut % (Auto) 71.5 Lymph % (Auto) 12.4 L Mckean % (Auto) 13.5 H Eos % (Auto) 1.2 Baso % (Auto) 0.5 Lymph # (Auto) 1.05 Mckean # (Auto) 1.1 H Eos # (Auto) 0.1 Baso # (Auto) 0.0 Abs Immat Gran (auto) 0.08 H Absolute Neuts (auto) 6.1 Absolute Nucleated RBC 0.020 H Band Neutrophils % Nucleated RBC % 0.2 Platelet Estimate Large Platelets Polychromasia Hypochromasia Basophilic Stippling Anisocytosis Macrocytosis Schistocytes Sodium 132 L Potassium 4.3 Chloride 98 Carbon Dioxide 20 L Anion Gap 14 H BUN 35 H D Creatinine 5.41 H Estim Creat Clear Calc 9 Estimated GFR 8 L Glucose 161 H POC Capillary Glucose 170 H Lactic Acid Calcium 7.8 L Phosphorus 4.6 H Total Bilirubin 0.7 AST 61 H ALT 34 Alkaline Phosphatase 122 Total Protein 6.9 Albumin 3.1 L Random Vancomycin 15.4 Quality VTE Prophylaxis VTE prophylaxis: pharmacologic ordered
[2025-04-26 07:13] LABS: Polychromasia Occasional
--- NOTE | 2025-04-26 11:22 | P.PNNP_ITS ---
Progress Note: A&P Assessment and Plan (1) End stage renal disease: Code(s): N18.6 - End stage renal disease Status: Chronic Assessment and Plan: * HD underway * removing 2L. * On a 2 K bath * Potassium, bicarbonate, and BUN are looking okay. (2) Frequent falls: Code(s): R29.6 - Repeated falls Status: Acute Assessment and Plan: * as noted by history * PT/OT as tolerated * possible need for placement (3) UTI (urinary tract infection): Code(s): N39.0 - Urinary tract infection, site not specified Status: Acute Assessment and Plan: * admission UA highly suggestive * Blood cultures pending. Urine culture shows Gram-negative bacilli. * on Ceftriaxone (4) Leg wound, right: Code(s): S81.801A - Unspecified open wound, right lower leg, initial encounter Status: Acute Assessment and Plan: * as noted on presentation * local wound care. * on ceftriaxone, vancomycin, Flagyl. (5) Anemia: Code(s): D64.9 - Anemia, unspecified Status: Chronic Assessment and Plan: * due to ESRD * RADHA/Epogen with HD * Hemoglobin stable in the 7s (6) COPD (chronic obstructive pulmonary disease): Qualifiers: COPD type: unspecified COPD Qualified Code(s): J44.9 - Chronic obstructive pulmonary disease, unspecified Code(s): J44.9 - Chronic obstructive pulmonary disease, unspecified Status: Acute Assessment and Plan: * no evidence of exacerbation * continue home inhalers * complicated by RAINA * continue home CPAP * follow respiratory status (7) Hypertension: Qualifiers: Hypertension type: unspecified Qualified Code(s): I10 - Essential (primary) hypertension Code(s): I10 - Essential (primary) hypertension Status: Chronic Assessment and Plan: * systolic 120s to 140s * resume home BP medications * volume control. (8) Type 2 diabetes mellitus with hyperglycemia: Qualifiers: Diabetes mellitus replenishment associate insulin use: with replenishment associate use Qualified Code(s): E11.65 - Type 2 diabetes mellitus with hyperglycemia; Z79.4 - halfway (current) use of insulin Code(s): E11.65 - Type 2 diabetes mellitus with hyperglycemia Status: Chronic Assessment and Plan: * follow accu-cheks * glycemic control per hospitalist Subjective Date/time seen: 04/26/25 11:22 Interval history: patient is on dialysis and tolerating it well. Removing about 2L. Blood pressure is doing well. She was seen at 9:30 a.m. Exam Narrative: WDWN in NAD skin no rash head ncat lungs clear cor reg no rub abd BS+ nontender and soft ext no edema. Objective Data Vital Signs Vital Signs: Vital Signs - 24 hr 04/25/25 11:45 04/25/25 12:00 04/25/25 14:00 Temperature 97.0 F L 97.5 F L Pulse Rate 96 52 L Respiratory Rate 14 14 Blood Pressure 151/61 H 123/51 L Pulse Oximetry 100 97 Oxygen Delivery Room Air 04/25/25 16:00 04/25/25 20:13 04/25/25 22:00 Temperature 97.8 F 97.7 F Pulse Rate 51 L 55 L Respiratory Rate 14 16 Blood Pressure 142/58 H 136/52 L Pulse Oximetry 98 98 98 Oxygen Delivery Autopap 04/26/25 00:36 04/26/25 00:46 04/26/25 05:30 Temperature 97.7 F 97.4 F L Pulse Rate 64 54 L 57 L Respiratory Rate 14 17 16 Blood Pressure 136/50 L 138/57 L Pulse Oximetry 95 98 97 Oxygen Delivery Autopap 04/26/25 07:04 04/26/25 07:12 04/26/25 07:30 Temperature 98.4 F Pulse Rate 57 L 58 L 57 L Respiratory Rate 17 Blood Pressure 148/67 H 153/68 H 147/67 H Pulse Oximetry 99 Oxygen Delivery 04/26/25 07:45 04/26/25 08:00 04/26/25 08:15 Temperature Pulse Rate 57 L 58 L 58 L Respiratory Rate Blood Pressure 153/69 H 126/59 L 158/79 H Pulse Oximetry Oxygen Delivery 04/26/25 08:30 04/26/25 08:49 04/26/25 09:01 Temperature Pulse Rate 59 L 60 64 Respiratory Rate Blood Pressure 166/72 H 125/57 L 136/77 Pulse Oximetry Oxygen Delivery 04/26/25 09:15 04/26/25 09:30 04/26/25 09:45 Temperature Pulse Rate 60 59 L 59 L Respiratory Rate Blood Pressure 101/54 L 156/78 H 149/66 H Pulse Oximetry Oxygen Delivery 04/26/25 10:00 04/26/25 10:15 04/26/25 10:30 Temperature Pulse Rate 59 L 68 58 L Respiratory Rate Blood Pressure 138/55 L 126/70 143/64 H Pulse Oximetry Oxygen Delivery Intake/Output Intake/Output: Intake & Output 04/23/25 04/24/25 04/25/25 04/26/25 23:59 23:59 23:59 23:59 Intake Total 50 730 1220 220 Output Total 50 1500 Balance 0 -770 1220 220 Meds/Results Medications: Active Medications Generic Name Dose Route Start Last Admin Trade Name Freq PRN Reason Stop Dose Admin Albuterol 2.5 mg 04/24/25 01:37 Albuterol Sulfate Neb 2.5 Mg/3 Ml Inh INHALATION Q4HRT PRN Shortness Of Breath Or Wheezing Amiodarone HCl 200 mg 04/24/25 08:00 04/25/25 08:35 Amiodarone Hcl 200 Mg Tablet PO 200 mg DAILY@0800 ALINA Administration Apixaban 2.5 mg 04/24/25 09:00 04/25/25 20:59 Apixaban 2.5 Mg Tablet PO 2.5 mg Q12HR ALINA Administration Atorvastatin Calcium 20 mg 04/24/25 21:00 04/25/25 20:59 Atorvastatin 20 Mg Tablet PO 20 mg HS ALINA Administration Calcium Acetate 667 mg 04/24/25 09:00 04/25/25 08:35 Calcium Acetate 667 Mg Tablet PO 667 mg DAILY ALINA Administration Colestipol HCl 2 gm 04/24/25 09:00 04/25/25 08:35 Colestipol Hcl 1 Gm Tablet PO 2 gm DAILY ALINA Administration Dextrose 12.5 gm 04/24/25 01:39 Dextrose 50% 25 Gm/50 Ml Syringe IV PUSH PRN PRN Hypoglycemia Protocol Escitalopram Oxalate 5 mg 04/24/25 09:00 04/25/25 08:36 Escitalopram Oxalate 5 Mg Tablet PO 5 mg DAILY ALINA Administration Glucagon 1 mg 04/24/25 01:39 Glucagon For Inj 1 Mg Vial IM PRN PRN Hypoglycemia Protocol Glucose 15 gm 04/24/25 01:39 Glucose Oral Gel 15 Gm Of Glucse In 37.5 Gm Tube PO PRN PRN Hypoglycemia Protocol Hydralazine HCl 25 mg 04/24/25 06:00 04/26/25 05:39 Hydralazine Hcl 25 Mg Tablet PO 25 mg Q8HR ALINA Administration Dextrose 1,000 mls @ 100 mls/hr 04/24/25 01:39 Dextrose 5% 1,000 Ml IVPB PRN PRN Hypoglycemia Protocol Albumin Human 50 mls @ 999 mls/hr 04/24/25 09:24 Albutein IVPB 05/24/25 09:23 Q10M PRN HYPOTENSION Metronidazole 500 mg in 100 mls @ 100 mls/hr 04/24/25 14:10 04/26/25 06:39 Flagyl 500 Mg/Iso Soln 100 Ml IVPB Infused Q8HR ALINA Infusion Meropenem 500 mg/ Sodium 100 mls @ 200 mls/hr 04/26/25 08:00 Chloride IVPB Q24H ALINA Vancomycin HCl 750 mg in 250 mls @ 250 mls/hr 04/26/25 12:00 Vancomycin 750 Mg/Ns 250 Ml IVPB 04/26/25 12:59 ONCE ONE Insulin Aspart 2 - 5 units 04/24/25 08:00 04/25/25 17:52 Insulin Aspart (*Bkc) 100 Units/Ml SUB-Q Not Given TIDWM ALINA Protocol Isosorbide Mononitrate 30 mg 04/24/25 09:00 04/25/25 08:36 Isosorbide Mononitrate 30 Mg Tab.Er.24h PO 30 mg DAILY ALINA Administration Levothyroxine Sodium 200 mcg 04/24/25 06:30 04/26/25 05:38 Levothyroxine Sodium 100 Mcg Tablet PO 200 mcg DAILY@0630 ALINA Administration Lidocaine/Prilocaine 1 each 04/24/25 09:30 Lidocaine/Prilocaine Cream 2.5-2.5% Tube TOPICAL WITH DIALYSIS PRN for dialysis Protocol Lorazepam 0.5 mg 04/24/25 01:37 04/25/25 21:41 Lorazepam (*Crx) 0.5 Mg Tablet PO 0.5 mg BID PRN Administration Anxiety Metoprolol Succinate 50 mg 04/24/25 09:00 04/25/25 08:35 Metoprolol Succinate Ext Rel 50 Mg Tabcr PO 50 mg QAM ALINA Administration Montelukast Sodium 10 mg 04/24/25 09:00 04/25/25 08:36 Montelukast Sodium 10 Mg Tablet PO 10 mg DAILY ALINA Administration Ropinirole HCl 0.5 mg 04/24/25 09:00 04/25/25 20:59 Ropinirole Hcl 0.5 Mg Tablet PO 0.5 mg Q12HR ALINA Administration Fluticasone/Salmeterol 2 puff 04/24/25 08:00 04/25/25 21:00 Fluticasone/Salmeterol 115-21 Mcg Inhaler 1 Puff INHALATION 2 puff Q12HRT ALINA Administration Tramadol HCl 25 mg 04/24/25 01:47 04/25/25 08:46 Tramadol Hcl (*Crx) 25 Mg Tablet PO 25 mg Q12H PRN Administration Pain Trazodone HCl 50 mg 04/24/25 21:00 04/25/25 20:59 Trazodone Hcl 50 Mg Tablet PO 50 mg QHS ALINA Administration Vancomycin HCl 1 each 04/24/25 08:09 Vancomycin For Hemodialysis IVPB PRN PRN Vancomycin Protocol Radiology Results: ITS Impressions Head CT 04/23/25 14:01 Impression: 1.No acute intracranial abnormality. Cervical Spine CT 04/23/25 14:05 Impression: No acute abnormality. Chest X-Ray 04/23/25 14:20 IMPRESSION: 1. Probable mild interstitial pulmonary edema with persistent right midlung atelectasis and/or scarring. 2. No significant change from prior. Tibia/Fibula X-Ray 04/23/25 14:20 IMPRESSION: 1. No cortical erosions or periosteal reaction to suggest osteitis. No other acute osseous abnormality. 2. 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 Labs Labs: Laboratory Results - last 24 hr 04/25/25 04/25/25 04/25/25 11:28 12:21 14:32 WBC RBC Hgb Hct MCV MCH MCHC RDW Plt Count MPV Immature Gran % (Auto) Neut % (Auto) Lymph % (Auto) [place] % (Auto) Eos % (Auto) Baso % (Auto) Lymph # (Auto) [place] # (Auto) Eos # (Auto) Baso # (Auto) Abs Immat Gran (auto) Absolute Neuts (auto) Absolute Nucleated RBC Band Neutrophils % Nucleated RBC % Platelet Estimate Polychromasia Hypochromasia Anisocytosis Macrocytosis Target Cells Ovalocytes Junior Cells Schistocytes Sodium Potassium Chloride Carbon Dioxide Anion Gap BUN Creatinine Estim Creat Clear Calc Estimated GFR Glucose POC Capillary Glucose 173 H Lactic Acid 2.6 H 2.6 H Calcium Phosphorus Total Bilirubin AST ALT Alkaline Phosphatase Total Protein Albumin Random Vancomycin 04/25/25 04/25/25 04/26/25 16:25 20:19 05:23 WBC 8.5 RBC 3.01 L Hgb 7.7 L Hct 26.8 L MCV 89.0 MCH 25.6 L MCHC 28.7 L RDW 19.6 H Plt Count 280 MPV 10.1 Immature Gran % (Auto) 0.9 H Neut % (Auto) 71.5 Lymph % (Auto) 12.4 L [place] % (Auto) 13.5 H Eos % (Auto) 1.2 Baso % (Auto) 0.5 Lymph # (Auto) 1.05 [place] # (Auto) 1.1 H Eos # (Auto) 0.1 Baso # (Auto) 0.0 Abs Immat Gran (auto) 0.08 H Absolute Neuts (auto) 6.1 Absolute Nucleated RBC 0.020 H Band Neutrophils % Not Reportable Nucleated RBC % 0.2 Platelet Estimate Adequate Polychromasia Occasional Hypochromasia 2+ Anisocytosis 1+ Macrocytosis Occasional Target Cells Occasional Ovalocytes Occasional Ruth Cells 1+ Schistocytes None seen Sodium 132 L Potassium 4.3 Chloride 98 Carbon Dioxide 20 L Anion Gap 14 H BUN 35 H D Creatinine 5.41 H Estim Creat Clear Calc 9 Estimated GFR 8 L Glucose 161 H POC Capillary Glucose 190 H 170 H Lactic Acid Calcium 7.8 L Phosphorus 4.6 H Total Bilirubin 0.7 AST 61 H ALT 34 Alkaline Phosphatase 122 Total Protein 6.9 Albumin 3.1 L Random Vancomycin 15.4
--- NOTE | 2025-04-26 11:44 | PCRCNOTE ---
Window of time for administration has passed. See next scheduled administration.
[2025-04-26] MEDS: APIXABAN 2.5 MG TABLET PO ×2 (11:49→21:50)
[2025-04-26] MEDS: CALCIUM ACETATE 667 MG TABLET PO (11:49)
[2025-04-26] MEDS: ESCITALOPRAM OXALATE 5 MG TABLET PO (11:49)
[2025-04-26] MEDS: MEROPENEM 500 MG in SODIUM CHLORIDE 0.9% IV 100 ML 200 ML IVPB (11:49)
[2025-04-26] MEDS: MONTELUKAST SODIUM 10 MG TABLET PO (11:50)
[2025-04-26] MEDS: METOPROLOL SUCCINATE EXT REL 50 MG TABCR PO (11:50)
[2025-04-26] MEDS: COLESTIPOL HCL 1 GM TABLET 2 GM PO (11:50)
[2025-04-26] MEDS: ISOSORBIDE MONONITRATE 30 MG TAB.ER.24H PO (11:50)
[2025-04-26] MEDS: VANCOMYCIN 750 MG/NS 250 ML 750 MG/250 ML BAG 250 MG IVPB (13:24)
[2025-04-26] MEDS: FLUTICASONE/SALMETEROL 115-21 MCG INHALER 1 PUFF 2 PUFF INHALATION (20:12)
[2025-04-26] MEDS: ATORVASTATIN 20 MG TABLET PO (21:50)
[2025-04-27] VITALS (11 sets, daily range): BP systolic 132–164; BP diastolic 52–94; PULSE 52–60; RESP 13–20; TEMP 36–36.3; O2SAT 95–100
[2025-04-27] MEDS: LEVOTHYROXINE SODIUM 100 MCG TABLET 200 MCG PO (05:31)
[2025-04-27] MEDS: metroNIDAZOLE 500 MG/ISO 100ML 500 MG/100 ML BAG 100 MG IVPB (05:37)
[2025-04-27 07:06] LABS: Hematocrit 27.3 % (37.0-47.0); Hemoglobin 7.9 g/dL (12.0-15.0); Immature Granulocyte Percent A 0.4 % (0-0.5); Lymphocytes Absolute Auto 1.25 K/mm3 (0.9-3.2); Mean Corpuscular HGB Conc 28.9 g/dl (32-36); Mean Corpuscular Hemoglobin 25.9 pg (26-34); Mean Corpuscular Volume 89.5 fl (80-100); Nucleated Red Blood Cells Absolute Auto 0.030 K/mm3 (0.0-0.012); Nucleated Red Blood Cells Perc 0.4 % (0.0-0.2); Platelet Count Result 245 k/mm3 (150-375); Red Blood Count 3.05 M/mm3 (4.2-5.4); White Blood Count 7.4 K/mm3 (4.5-10.0)
[2025-04-27 07:47] LABS: Alanine Aminotransferase 66 U/L (6-35); Albumin Level 3.0 g/dL (3.5-5.1); Alkaline Phosphatase 119 U/L (38-126); Anion Gap 13 mmol/L (4-12); Aspartate Amino Transferase 130 U/L (14-36); Bilirubin,Total 0.8 mg/dL (0.2-1.3); Blood Urea Nitrogen 25 mg/dL (7-17); Calcium 8.0 mg/dL (8.4-10.2); Carbon Dioxide 22 mmol/L (22-30); Chloride 102 mmol/L (98-107); Estimated CRCL calculation 12 ml/min; Estimated Glomerular Filt Rate 11; Glucose 124 mg/dL (65-110); Potassium 4.1 mmol/L (3.4-5.0); Sodium 137 mmol/L (137-145); Total Protein 6.8 g/dL (6.3-8.2)
[2025-04-27 07:48] LABS: Anisocytosis 1+; Hypochromasia Occasional; Schistocytes None Seen
[2025-04-27] MEDS: FLUTICASONE/SALMETEROL 115-21 MCG INHALER 1 PUFF 2 PUFF INHALATION ×2 (08:00→20:33)
[2025-04-27] MEDS: METOPROLOL SUCCINATE EXT REL 50 MG TABCR PO (08:50)
[2025-04-27] MEDS: APIXABAN 2.5 MG TABLET PO ×2 (08:53→20:27)
[2025-04-27] MEDS: COLESTIPOL HCL 1 GM TABLET 2 GM PO (08:53)
[2025-04-27] MEDS: ESCITALOPRAM OXALATE 5 MG TABLET PO (08:53)
[2025-04-27] MEDS: CALCIUM ACETATE 667 MG TABLET PO (08:53)
[2025-04-27] MEDS: AMIODARONE HCL 200 MG TABLET PO (08:54)
[2025-04-27] MEDS: ISOSORBIDE MONONITRATE 30 MG TAB.ER.24H PO (08:54)
[2025-04-27] MEDS: MEROPENEM 500 MG in SODIUM CHLORIDE 0.9% IV 100 ML 200 ML IVPB (08:54)
[2025-04-27] MEDS: MONTELUKAST SODIUM 10 MG TABLET PO (08:54)
[2025-04-27] MEDS: LORazepam (*CRX) 0.5 MG TABLET PO (09:45)
[2025-04-27] MEDS: traMADol HCL (*CRX) 25 MG TABLET PO (09:45)
--- NOTE | 2025-04-27 10:34 | PCPTNOTE ---
Patient refused treatment this session. Patient's in room initially to encourage patient for participation, however patient's spouse left and patient adamantly refused to participate in PT. Patient unable to verbalize why and refused to use communication board to assist.
--- NOTE | 2025-04-27 12:50 | P.PNIM_ITS ---
Assessment and Plan Assessment and Plan (1) Acute UTI: Code(s): N39.0 - Urinary tract infection, site not specified Status: Acute Assessment and Plan: * Started on Rocephin in ER * blood cultures pending * Urine culture - klebsiella pneumoniae * check daily lactic acid levels. * patient's blood pressure stable at 147/55 and heart rate is 54. Afebrile, WBC 10.9. * last month her urine culture grew mixed urogenital agusto * Given ESBL and limited susceptibility - will need to continue IV Meropenem (2) Leg wound, right: Code(s): S81.801A - Unspecified open wound, right lower leg, initial encounter Status: Acute Assessment and Plan: * chronic wound to right lower extremity * Started on vancomycin * wound and blood cultures pending * wound Care consulted * Not given any IV fluids as she is a dialysis patient. * the patient is also on p.o. clindamycin from home please clarify if he patient is still taking this and for what purpose . * Lactic 2.2 ->2.1 -> 2.6 * ID consult placed by admitting provider * Add Flagyl to Vancomycin, continue Rocephin * Blood cultures negative (3) ESRD on hemodialysis: Code(s): N18.6 - End stage renal disease; Z99.2 - Dependence on renal dialysis Status: Acute Assessment and Plan: * left upper arm AV fistula has a positive bruit and thrill. * nephrology consulted, following * continue to monitor magnesium phos and other electrolytes * the patient has dialysis on Sunday outpatient (4) Hypothyroidism (acquired): Onset Date: ~12/23/22 Code(s): E03.9 - Hypothyroidism, unspecified Status: Acute Assessment and Plan: * continue levothyroxine (5) Diabetes: Code(s): E11.9 - Type 2 diabetes mellitus without complications Status: Acute Assessment and Plan: * Accu-Cheks AC and HS with sliding scale insulin and hypoglycemic protocol. * diabetic diet * pharmacy to reduce long-acting home insulin by 20%. (6) COPD (chronic obstructive pulmonary disease): Qualifiers: COPD type: unspecified COPD Qualified Code(s): J44.9 - Chronic obstructive pulmonary disease, unspecified Code(s): J44.9 - Chronic obstructive pulmonary disease, unspecified Status: Acute Assessment and Plan: * continue with home inhalers including albuterol and budesonide. * continue singular (7) RAINA (obstructive sleep apnea): Code(s): G47.33 - Obstructive sleep apnea (adult) (pediatric) Status: Acute Assessment and Plan: * titrate CPAP to home settings (8) Generalized weakness: Code(s): R53.1 - Weakness Status: Acute Assessment and Plan: * PT and OT to evaluate patient. (9) Atrial fibrillation: Code(s): I48.91 - Unspecified atrial fibrillation Status: Chronic Assessment and Plan: * patient in sinus bradycardia * continue metoprolol - Hold if HR < 50 * continue amiodarone, apixaban * HR is 54 an EKG was sinus bradycardia (10) Hyperlipidemia LDL goal <70: Code(s): E78.5 - Hyperlipidemia, unspecified Status: Acute Assessment and Plan: * continue with colestipol (11) Hypertension: Qualifiers: Hypertension type: unspecified Qualified Code(s): I10 - Essential (primary) hypertension Code(s): I10 - Essential (primary) hypertension Status: Chronic Assessment and Plan: * continue with hydralazine * continue with metoprolol if blood pressure allows. Currently blood pressure is 147/55. Hold if heart rate less than 50 (12) RLS (restless legs syndrome): Code(s): G25.81 - Restless legs syndrome Status: Acute Assessment and Plan: * continue to open her (13) Insomnia: Code(s): G47.00 - Insomnia, unspecified Status: Acute Assessment and Plan: * continue trazodone Plan I did speak with the pharmacist today and she has stated that the Infectious Disease pharmacist would take a look at the antibiotic and determine if clindamycin is on her home medication list needs to be continued. The patient has a history of DVT but is already apixaban. Subjective Date/time seen: 04/27/25 12:50 Interval history: 74-year-old female patient who has a history of AFib, DVT, end-stage renal disease on dialysis, congestive heart failure, COPD diabetes and a history of CVA with expressive aphasia. The patient came in via EMS after an unwitnessed fall that occurred last night. 04/27/2025 Patient sitting comfortably at bedside during exam. Give ESBL UTI - will continue IV abx (Meropenem) until course is complete as she is resistant to oral options. LFTs slightly elevated - continue to monitor, no abd pain. Will consider RUQ abd US if still elevated tomorrow. Review of Systems Review of Systems: ROS unobtainable: Yes unobtainable due to medical condition and unobtainable due to mental status Exam Const: General: cooperative, awake, Physically active, average body habitus and well nourished Nutritional Appearance: average body habitus and well nourished Orientation/consciousness: oriented to person, oriented to place, oriented to time and patient oriented x3 HENMT: Head: normal to inspection, No palpable skull fracture present, normocephalic, atraumatic and abrasion Ears: hearing grossly normal bilaterally Eyes: General: appearance normal, both eyes and all related structures Alignment and Position: alignment normal Periorbital: periorbital findings normal Eyelids: eyelids normal Neck: Neck: normal visual inspection, full ROM, no lymphadenopathy and trachea midline Resp: Effort & Inspection: normal respiratory effort Auscultation: clear to auscultation bilaterally Cardio: Palpation: normal PMI Rate: regular rate Rhythm: regular rhythm Heart sounds: S2 normal heart sound present GI: Inspection: normal to inspection Auscultation: normal bowel sounds : General: Yes no CVA tenderness Back/Spine/Pelvis: Back: no CVA tenderness Cervical Spine: cervical ROM normal Skin: General skin exam: normal color Lesions: no lesions Other: Left upper arm AV fistula with positive bruit and thrill. Large right diabetic ulcer noted to posterior ankle exposing the Achilles tendon. The area is approximately 5 by 7 with leong malodorous discharge. The area is unstageable. Erythema noted around the ulcerated area. Please see wound photio There is a dressing over the right forearm that I was unable to remove at this time and the nurse stated that it was a skin tear. Neuro: General: oriented to person, oriented to place, oriented to time and patient oriented x3 Extrem: General: normal to inspection Right upper extremity: normal to inspection and shoulder/upper arm Left upper extremity: normal to inspection and shoulder/upper arm Psych: Affect: normal affect Objective Data Vital Signs Vital Signs: Vital Signs - 24 hr 04/26/25 14:00 04/26/25 16:00 04/26/25 20:00 Temperature 98.2 F 98.0 F Pulse Rate 59 L 63 Respiratory Rate 16 16 Blood Pressure 135/62 177/57 H Pulse Oximetry 99 100 Oxygen Delivery Room Air Fraction of Inspired Oxygen 04/26/25 20:13 04/26/25 20:13 04/26/25 20:30 Temperature 96.8 F L Pulse Rate 55 L 55 L 57 L Respiratory Rate 14 14 15 Blood Pressure 159/61 H Pulse Oximetry 95 100 Oxygen Delivery Room Air Fraction of Inspired Oxygen 21 04/27/25 00:33 04/27/25 04:10 04/27/25 08:00 Temperature 97.0 F L 96.8 F L Pulse Rate 54 L 53 L 53 L Respiratory Rate 17 16 20 Blood Pressure 164/58 H 132/81 Pulse Oximetry 99 99 98 Oxygen Delivery Room Air Fraction of Inspired Oxygen 04/27/25 08:00 04/27/25 08:00 04/27/25 08:50 Temperature 96.9 F L Pulse Rate 53 L 52 L 53 L Respiratory Rate 20 16 Blood Pressure 141/53 H Pulse Oximetry 98 Oxygen Delivery Fraction of Inspired Oxygen 04/27/25 08:50 04/27/25 08:54 04/27/25 12:00 Temperature 97.2 F L Pulse Rate 53 L 53 L Respiratory Rate 17 Blood Pressure 160/56 H Pulse Oximetry 100 Oxygen Delivery Room Air Fraction of Inspired Oxygen Intake/Output Intake/Output: Intake & Output 04/24/25 04/25/25 04/26/25 04/27/25 23:59 23:59 23:59 23:59 Intake Total 730 1220 878 340 Output Total 1500 2500 Balance -770 1220 -1622 340 Meds/Results Medications: Active Medications Generic Name Dose Route Start Last Admin Trade Name Freq PRN Reason Stop Dose Admin Albuterol 2.5 mg 04/24/25 01:37 Albuterol Sulfate Neb 2.5 Mg/3 Ml Inh INHALATION Q4HRT PRN Shortness Of Breath Or Wheezing Amiodarone HCl 200 mg 04/24/25 08:00 04/27/25 08:54 Amiodarone Hcl 200 Mg Tablet PO 200 mg DAILY@0800 [facility] Administration Apixaban 2.5 mg 04/24/25 09:00 04/27/25 08:53 Apixaban 2.5 Mg Tablet PO 2.5 mg Q12HR ALINA Administration Atorvastatin Calcium 20 mg 04/24/25 21:00 04/26/25 21:50 Atorvastatin 20 Mg Tablet PO 20 mg HS ALINA Administration Calcium Acetate 667 mg 04/24/25 09:00 04/27/25 08:53 Calcium Acetate 667 Mg Tablet PO 667 mg DAILY ALINA Administration Colestipol HCl 2 gm 04/24/25 09:00 04/27/25 08:53 Colestipol Hcl 1 Gm Tablet PO 2 gm DAILY ALINA Administration Dextrose 12.5 gm 04/24/25 01:39 Dextrose 50% 25 Gm/50 Ml Syringe IV PUSH PRN PRN Hypoglycemia Protocol Escitalopram Oxalate 5 mg 04/24/25 09:00 04/27/25 08:53 Escitalopram Oxalate 5 Mg Tablet PO 5 mg DAILY ALINA Administration Glucagon 1 mg 04/24/25 01:39 Glucagon For Inj 1 Mg Vial IM PRN PRN Hypoglycemia Protocol Glucose 15 gm 04/24/25 01:39 Glucose Oral Gel 15 Gm Of Glucse In 37.5 Gm Tube PO PRN PRN Hypoglycemia Protocol Hydralazine HCl 25 mg 04/24/25 06:00 04/27/25 05:31 Hydralazine Hcl 25 Mg Tablet PO 25 mg Q8HR ALINA Administration Dextrose 1,000 mls @ 100 mls/hr 04/24/25 01:39 Dextrose 5% 1,000 Ml IVPB PRN PRN Hypoglycemia Protocol Albumin Human 50 mls @ 999 mls/hr 04/24/25 09:24 Albutein IVPB 05/24/25 09:23 Q10M PRN HYPOTENSION Metronidazole 500 mg in 100 mls @ 100 mls/hr 04/24/25 14:10 04/27/25 06:37 Flagyl 500 Mg/Iso Soln 100 Ml IVPB Infused Q8HR ALINA Infusion Meropenem 500 mg/ Sodium 100 mls @ 200 mls/hr 04/26/25 08:00 04/27/25 08:54 Chloride IVPB 200 mls/hr Q24H ALINA Administration Insulin Aspart 2 - 5 units 04/24/25 08:00 04/27/25 12:30 Insulin Aspart (*Bkc) 100 Units/Ml SUB-Q Not Given TIDWM ALINA Protocol Isosorbide Mononitrate 30 mg 04/24/25 09:00 04/27/25 08:54 Isosorbide Mononitrate 30 Mg Tab.Er.24h PO 30 mg DAILY ALINA Administration Levothyroxine Sodium 200 mcg 04/24/25 06:30 04/27/25 05:31 Levothyroxine Sodium 100 Mcg Tablet PO 200 mcg DAILY@0630 ALINA Administration Lidocaine/Prilocaine 1 each 04/24/25 09:30 Lidocaine/Prilocaine Cream 2.5-2.5% Tube TOPICAL WITH DIALYSIS PRN for dialysis Protocol Lorazepam 0.5 mg 04/24/25 01:37 04/27/25 09:45 Lorazepam (*Crx) 0.5 Mg Tablet PO 0.5 mg BID PRN Administration Anxiety Metoprolol Succinate 50 mg 04/24/25 09:00 04/27/25 08:50 Metoprolol Succinate Ext Rel 50 Mg Tabcr PO 50 mg QAM ALINA Administration Montelukast Sodium 10 mg 04/24/25 09:00 04/27/25 08:54 Montelukast Sodium 10 Mg Tablet PO 10 mg DAILY ALINA Administration Ropinirole HCl 0.5 mg 04/24/25 09:00 04/27/25 08:54 Ropinirole Hcl 0.5 Mg Tablet PO 0.5 mg Q12HR ALINA Administration Fluticasone/Salmeterol 2 puff 04/24/25 08:00 04/27/25 08:00 Fluticasone/Salmeterol 115-21 Mcg Inhaler 1 Puff INHALATION 2 puff Q12HRT ALINA Administration Tramadol HCl 25 mg 04/24/25 01:47 04/27/25 09:45 Tramadol Hcl (*Crx) 25 Mg Tablet PO 25 mg Q12H PRN Administration Pain Trazodone HCl 50 mg 04/24/25 21:00 04/26/25 21:50 Trazodone Hcl 50 Mg Tablet PO 50 mg QHS ALINA Administration Vancomycin HCl 1 each 04/24/25 08:09 Vancomycin For Hemodialysis IVPB PRN PRN Vancomycin Protocol Radiology Results: ITS Impressions Head CT 04/23/25 14:01 Impression: 1.No acute intracranial abnormality. Cervical Spine CT 04/23/25 14:05 Impression: No acute abnormality. Chest X-Ray 04/23/25 14:20 IMPRESSION: 1. Probable mild interstitial pulmonary edema with persistent right midlung atelectasis and/or scarring. 2. No significant change from prior. Tibia/Fibula X-Ray 04/23/25 14:20 IMPRESSION: 1. No cortical erosions or periosteal reaction to suggest osteitis. No other acute osseous abnormality. 2. 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 Labs Labs: Laboratory Results - last 24 hr 04/26/25 04/26/25 04/27/25 16:21 20:36 06:27 WBC 7.4 RBC 3.05 L Hgb 7.9 L Hct 27.3 L MCV 89.5 MCH 25.9 L MCHC 28.9 L RDW 20.0 H Plt Count 245 MPV 10.2 Immature Gran % (Auto) 0.4 Neut % (Auto) 63.2 Lymph % (Auto) 16.9 L [place] % (Auto) 16.9 H Eos % (Auto) 1.8 Baso % (Auto) 0.8 Lymph # (Auto) 1.25 [place] # (Auto) 1.3 H Eos # (Auto) 0.1 Baso # (Auto) 0.1 Abs Immat Gran (auto) 0.03 Absolute Neuts (auto) 4.7 Absolute Nucleated RBC 0.030 H Band Neutrophils % Not Reportable Nucleated RBC % 0.4 H Platelet Estimate Adequate Hypochromasia Occasional Anisocytosis 1+ Schistocytes None seen Sodium 137 Potassium 4.1 Chloride 102 Carbon Dioxide 22 Anion Gap 13 H BUN 25 H D Creatinine 4.07 H Estim Creat Clear Calc 12 Estimated GFR 11 L Glucose 124 H POC Capillary Glucose 131 H 157 H Calcium 8.0 L Total Bilirubin 0.8 AST 130 H ALT 66 H Alkaline Phosphatase 119 Total Protein 6.8 Albumin 3.0 L 04/27/25 04/27/25 07:44 11:28 WBC RBC Hgb Hct MCV MCH MCHC RDW Plt Count MPV Immature Gran % (Auto) Neut % (Auto) Lymph % (Auto) [place] % (Auto) Eos % (Auto) Baso % (Auto) Lymph # (Auto) [place] # (Auto) Eos # (Auto) Baso # (Auto) Abs Immat Gran (auto) Absolute Neuts (auto) Absolute Nucleated RBC Band Neutrophils % Nucleated RBC % Platelet Estimate Hypochromasia Anisocytosis Schistocytes Sodium Potassium Chloride Carbon Dioxide Anion Gap BUN Creatinine Estim Creat Clear Calc Estimated GFR Glucose POC Capillary Glucose 121 H 178 H Calcium Total Bilirubin AST ALT Alkaline Phosphatase Total Protein Albumin Quality VTE Prophylaxis VTE prophylaxis: pharmacologic ordered
--- NOTE | 2025-04-27 14:29 | P.PNINF_ITS ---
Progress Note: A&P Assessment and Plan (1) Leg wound, right: Code(s): S81.801A - Unspecified open wound, right lower leg, initial encounter Status: Acute Assessment and Plan: #Patient found down. Rule out sepsis. Rule out bacteremia patient with right leg wound as well as end-stage renal disease on hemodialysis. UTI seems less likely-Klebsiella ESBL from Urine. #Right leg wound. several months per . assessment for PVD No OM On X-ray. #History of stroke with expressive aphasia. No signs of meningoencephalitis initially. #End-stage renal disease on hemodialysis. Left AV fistula. No clear infection at that site. Plan: Continue meropenem through tomorrow. Continue vanc Will follow on read of CTA right leg Do not expect long course of abx for urine or wound this point, although we cou ld dose iv abx with HD if needed. Will follow up tomorrow. Subjective Date/time seen: 04/27/25 14:30 Interval history: no fever. at bedside. pt with expressive aphasia. Awake. states wound on leg for several months. unclear what her UTI sx are; currently on meropenem day 2 . Objective Data Vital Signs Vital Signs: Vital Signs - 24 hr 04/26/25 16:00 04/26/25 20:00 04/26/25 20:13 Temperature 36.7 C Pulse Rate 63 55 L Respiratory Rate 16 14 Blood Pressure 177/57 H Pulse Oximetry 100 95 Oxygen Delivery Room Air Room Air Fraction of Inspired Oxygen 21 04/26/25 20:13 04/26/25 20:30 04/27/25 00:33 Temperature 36.0 C L 36.1 C L Pulse Rate 55 L 57 L 54 L Respiratory Rate 14 15 17 Blood Pressure 159/61 H 164/58 H Pulse Oximetry 100 99 Oxygen Delivery Fraction of Inspired Oxygen 04/27/25 04:10 04/27/25 08:00 04/27/25 08:00 Temperature 36.0 C L Pulse Rate 53 L 53 L 53 L Respiratory Rate 16 20 20 Blood Pressure 132/81 Pulse Oximetry 99 98 Oxygen Delivery Room Air Fraction of Inspired Oxygen 04/27/25 08:00 04/27/25 08:50 04/27/25 08:50 Temperature 36.1 C L Pulse Rate 52 L 53 L Respiratory Rate 16 Blood Pressure 141/53 H Pulse Oximetry 98 Oxygen Delivery Room Air Fraction of Inspired Oxygen 04/27/25 08:54 04/27/25 12:00 04/27/25 14:00 Temperature 36.2 C L 36.2 C L Pulse Rate 53 L 53 L 55 L Respiratory Rate 17 18 Blood Pressure 160/56 H 153/57 H Pulse Oximetry 100 97 Oxygen Delivery Fraction of Inspired Oxygen Intake/Output Intake/Output: Intake & Output 04/24/25 04/25/25 04/26/25 04/27/25 23:59 23:59 23:59 23:59 Intake Total 730 1220 878 440 Output Total 1500 2500 Balance -770 1220 -1622 440 Meds/Results Medications: Active Medications Generic Name Dose Route Start Last Admin Trade Name Freq PRN Reason Stop Dose Admin Albuterol 2.5 mg 04/24/25 01:37 Albuterol Sulfate Neb 2.5 Mg/3 Ml Inh INHALATION Q4HRT PRN Shortness Of Breath Or Wheezing Amiodarone HCl 200 mg 04/24/25 08:00 04/27/25 08:54 Amiodarone Hcl 200 Mg Tablet PO 200 mg DAILY@0800 ALINA Administration Apixaban 2.5 mg 04/24/25 09:00 04/27/25 08:53 Apixaban 2.5 Mg Tablet PO 2.5 mg Q12HR ALINA Administration Atorvastatin Calcium 20 mg 04/24/25 21:00 04/26/25 21:50 Atorvastatin 20 Mg Tablet PO 20 mg HS ALINA Administration Calcium Acetate 667 mg 04/24/25 09:00 04/27/25 08:53 Calcium Acetate 667 Mg Tablet PO 667 mg DAILY ALINA Administration Colestipol HCl 2 gm 04/24/25 09:00 04/27/25 08:53 Colestipol Hcl 1 Gm Tablet PO 2 gm DAILY ALINA Administration Dextrose 12.5 gm 04/24/25 01:39 Dextrose 50% 25 Gm/50 Ml Syringe IV PUSH PRN PRN Hypoglycemia Protocol Escitalopram Oxalate 5 mg 04/24/25 09:00 04/27/25 08:53 Escitalopram Oxalate 5 Mg Tablet PO 5 mg DAILY ALINA Administration Glucagon 1 mg 04/24/25 01:39 Glucagon For Inj 1 Mg Vial IM PRN PRN Hypoglycemia Protocol Glucose 15 gm 04/24/25 01:39 Glucose Oral Gel 15 Gm Of Glucse In 37.5 Gm Tube PO PRN PRN Hypoglycemia Protocol Hydralazine HCl 25 mg 04/24/25 06:00 04/27/25 05:31 Hydralazine Hcl 25 Mg Tablet PO 25 mg Q8HR ALINA Administration Dextrose 1,000 mls @ 100 mls/hr 04/24/25 01:39 Dextrose 5% 1,000 Ml IVPB PRN PRN Hypoglycemia Protocol Albumin Human 50 mls @ 999 mls/hr 04/24/25 09:24 Albutein IVPB 05/24/25 09:23 Q10M PRN HYPOTENSION Meropenem 500 mg/ Sodium 100 mls @ 200 mls/hr 04/26/25 08:00 04/27/25 09:24 Chloride IVPB Infused Q24H ALINA Infusion Insulin Aspart 2 - 5 units 04/24/25 08:00 04/27/25 12:30 Insulin Aspart (*Bkc) 100 Units/Ml SUB-Q Not Given TIDWM ALINA Protocol Isosorbide Mononitrate 30 mg 04/24/25 09:00 04/27/25 08:54 Isosorbide Mononitrate 30 Mg Tab.Er.24h PO 30 mg DAILY ALINA Administration Levothyroxine Sodium 200 mcg 04/24/25 06:30 04/27/25 05:31 Levothyroxine Sodium 100 Mcg Tablet PO 200 mcg DAILY@0630 ALINA Administration Lidocaine/Prilocaine 1 each 04/24/25 09:30 Lidocaine/Prilocaine Cream 2.5-2.5% Tube TOPICAL WITH DIALYSIS PRN for dialysis Protocol Lorazepam 0.5 mg 04/24/25 01:37 04/27/25 09:45 Lorazepam (*Crx) 0.5 Mg Tablet PO 0.5 mg BID PRN Administration Anxiety Metoprolol Succinate 50 mg 04/24/25 09:00 04/27/25 08:50 Metoprolol Succinate Ext Rel 50 Mg Tabcr PO 50 mg QAM ALINA Administration Montelukast Sodium 10 mg 04/24/25 09:00 04/27/25 08:54 Montelukast Sodium 10 Mg Tablet PO 10 mg DAILY ALINA Administration Ropinirole HCl 0.5 mg 04/24/25 09:00 04/27/25 08:54 Ropinirole Hcl 0.5 Mg Tablet PO 0.5 mg Q12HR ALINA Administration Fluticasone/Salmeterol 2 puff 04/24/25 08:00 04/27/25 08:00 Fluticasone/Salmeterol 115-21 Mcg Inhaler 1 Puff INHALATION 2 puff Q12HRT ALINA Administration Tramadol HCl 25 mg 04/24/25 01:47 04/27/25 09:45 Tramadol Hcl (*Crx) 25 Mg Tablet PO 25 mg Q12H PRN Administration Pain Trazodone HCl 50 mg 04/24/25 21:00 04/26/25 21:50 Trazodone Hcl 50 Mg Tablet PO 50 mg QHS ALINA Administration Vancomycin HCl 1 each 04/24/25 08:09 Vancomycin For Hemodialysis IVPB PRN PRN Vancomycin Protocol Radiology Results: ITS Impressions Head CT 04/23/25 14:01 Impression: 1.No acute intracranial abnormality. Cervical Spine CT 04/23/25 14:05 Impression: No acute abnormality. Chest X-Ray 04/23/25 14:20 IMPRESSION: 1. Probable mild interstitial pulmonary edema with persistent right midlung atelectasis and/or scarring. 2. No significant change from prior. Tibia/Fibula X-Ray 04/23/25 14:20 IMPRESSION: 1. No cortical erosions or periosteal reaction to suggest osteitis. No other acute osseous abnormality. 2. 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 Lower Extremity CTA 04/27/25 13:15 IMPRESSION: 1. Peripheral vascular disease with relatively symmetric severe stenoses at the bilateral popliteal arteries and occlusions of the bilateral distal posterior tibial arteries. There are also appears be a segment occlusion of the left tibioperoneal trunk and proximal aspect of the anterior tibial artery which reconstitutes in the proximal calf via collaterals. 2. Small amount of ascites in the pelvis and visualized lower abdomen. 3. Shotty bilateral inguinal lymph nodes with mildly enlarged likely reactive right inguinal lymph node. Labs Labs: Laboratory Results - last 24 hr 04/26/25 04/26/25 04/27/25 16:21 20:36 06:27 WBC 7.4 RBC 3.05 L Hgb 7.9 L Hct 27.3 L MCV 89.5 MCH 25.9 L MCHC 28.9 L RDW 20.0 H Plt Count 245 MPV 10.2 Immature Gran % (Auto) 0.4 Neut % (Auto) 63.2 Lymph % (Auto) 16.9 L Stone % (Auto) 16.9 H Eos % (Auto) 1.8 Baso % (Auto) 0.8 Lymph # (Auto) 1.25 Stone # (Auto) 1.3 H Eos # (Auto) 0.1 Baso # (Auto) 0.1 Abs Immat Gran (auto) 0.03 Absolute Neuts (auto) 4.7 Absolute Nucleated RBC 0.030 H Band Neutrophils % Not Reportable Nucleated RBC % 0.4 H Platelet Estimate Adequate Hypochromasia Occasional Anisocytosis 1+ Schistocytes None seen Sodium 137 Potassium 4.1 Chloride 102 Carbon Dioxide 22 Anion Gap 13 H BUN 25 H D Creatinine 4.07 H Estim Creat Clear Calc 12 Estimated GFR 11 L Glucose 124 H POC Capillary Glucose 131 H 157 H Calcium 8.0 L Total Bilirubin 0.8 AST 130 H ALT 66 H Alkaline Phosphatase 119 Total Protein 6.8 Albumin 3.0 L 04/27/25 04/27/25 07:44 11:28 WBC RBC Hgb Hct MCV MCH MCHC RDW Plt Count MPV Immature Gran % (Auto) Neut % (Auto) Lymph % (Auto) Stone % (Auto) Eos % (Auto) Baso % (Auto) Lymph # (Auto) Stone # (Auto) Eos # (Auto) Baso # (Auto) Abs Immat Gran (auto) Absolute Neuts (auto) Absolute Nucleated RBC Band Neutrophils % Nucleated RBC % Platelet Estimate Hypochromasia Anisocytosis Schistocytes Sodium Potassium Chloride Carbon Dioxide Anion Gap BUN Creatinine Estim Creat Clear Calc Estimated GFR Glucose POC Capillary Glucose 121 H 178 H Calcium Total Bilirubin AST ALT Alkaline Phosphatase Total Protein Albumin
--- NOTE | 2025-04-27 14:34 | P.PNNP_ITS ---
Progress Note: A&P Assessment and Plan (1) End stage renal disease: Code(s): N18.6 - End stage renal disease Status: Chronic Assessment and Plan: * HD due to my * volume status ok * Potassium, bicarbonate, and BUN are looking okay. (2) Frequent falls: Code(s): R29.6 - Repeated falls Status: Acute Assessment and Plan: * as noted by history * PT/OT as tolerated * possible need for placement (3) UTI (urinary tract infection): Code(s): N39.0 - Urinary tract infection, site not specified Status: Acute Assessment and Plan: * admission UA highly suggestive * Blood cultures pending. Urine culture shows Gram-negative bacilli. * on Ceftriaxone (4) Leg wound, right: Code(s): S81.801A - Unspecified open wound, right lower leg, initial encounter Status: Acute Assessment and Plan: * as noted on presentation * local wound care. * on ceftriaxone, vancomycin, Flagyl. (5) Anemia: Code(s): D64.9 - Anemia, unspecified Status: Chronic Assessment and Plan: * due to ESRD * RADHA/Epogen with HD * Hemoglobin stable in the 7s (6) COPD (chronic obstructive pulmonary disease): Qualifiers: COPD type: unspecified COPD Qualified Code(s): J44.9 - Chronic obstructive pulmonary disease, unspecified Code(s): J44.9 - Chronic obstructive pulmonary disease, unspecified Status: Acute Assessment and Plan: * no evidence of exacerbation * continue home inhalers * complicated by RAINA * continue home CPAP * follow respiratory status (7) Hypertension: Qualifiers: Hypertension type: unspecified Qualified Code(s): I10 - Essential (primary) hypertension Code(s): I10 - Essential (primary) hypertension Status: Chronic Assessment and Plan: * systolic 120s to 140s * resumed home BP medications * volume control. (8) Type 2 diabetes mellitus with hyperglycemia: Qualifiers: Diabetes mellitus assistant terminal manager insulin use: with assistant terminal manager use Qualified Code(s): E11.65 - Type 2 diabetes mellitus with hyperglycemia; Z79.4 - watermelon inspector (current) use of insulin Code(s): E11.65 - Type 2 diabetes mellitus with hyperglycemia Status: Chronic Assessment and Plan: * follow accu-cheks * glycemic control per hospitalist Subjective Date/time seen: 04/27/25 14:34 Interval history: in the room. Patient comfortable in bed. Exam Narrative: WDWN in NAD skin no rash head ncat lungs clear Bilaterally cor reg no rub or gallop abd BS+ nontender and soft ext no edema. Objective Data Vital Signs Vital Signs: Vital Signs - 24 hr 04/26/25 16:00 04/26/25 20:00 04/26/25 20:13 Temperature 98.0 F Pulse Rate 63 55 L Respiratory Rate 16 14 Blood Pressure 177/57 H Pulse Oximetry 100 95 Oxygen Delivery Room Air Room Air Fraction of Inspired Oxygen 21 04/26/25 20:13 04/26/25 20:30 04/27/25 00:33 Temperature 96.8 F L 97.0 F L Pulse Rate 55 L 57 L 54 L Respiratory Rate 14 15 17 Blood Pressure 159/61 H 164/58 H Pulse Oximetry 100 99 Oxygen Delivery Fraction of Inspired Oxygen 04/27/25 04:10 04/27/25 08:00 04/27/25 08:00 Temperature 96.8 F L Pulse Rate 53 L 53 L 53 L Respiratory Rate 16 20 20 Blood Pressure 132/81 Pulse Oximetry 99 98 Oxygen Delivery Room Air Fraction of Inspired Oxygen 04/27/25 08:00 04/27/25 08:50 04/27/25 08:50 Temperature 96.9 F L Pulse Rate 52 L 53 L Respiratory Rate 16 Blood Pressure 141/53 H Pulse Oximetry 98 Oxygen Delivery Room Air Fraction of Inspired Oxygen 04/27/25 08:54 04/27/25 12:00 04/27/25 14:00 Temperature 97.2 F L 97.2 F L Pulse Rate 53 L 53 L 55 L Respiratory Rate 17 18 Blood Pressure 160/56 H 153/57 H Pulse Oximetry 100 97 Oxygen Delivery Fraction of Inspired Oxygen Intake/Output Intake/Output: Intake & Output 04/24/25 04/25/25 04/26/25 04/27/25 23:59 23:59 23:59 23:59 Intake Total 730 1220 878 440 Output Total 1500 2500 Balance -770 1220 -1622 440 Meds/Results Medications: Active Medications Generic Name Dose Route Start Last Admin Trade Name Freq PRN Reason Stop Dose Admin Albuterol 2.5 mg 04/24/25 01:37 Albuterol Sulfate Neb 2.5 Mg/3 Ml Inh INHALATION Q4HRT PRN Shortness Of Breath Or Wheezing Amiodarone HCl 200 mg 04/24/25 08:00 04/27/25 08:54 Amiodarone Hcl 200 Mg Tablet PO 200 mg DAILY@0800 ALINA Administration Apixaban 2.5 mg 04/24/25 09:00 04/27/25 08:53 Apixaban 2.5 Mg Tablet PO 2.5 mg Q12HR ALINA Administration Atorvastatin Calcium 20 mg 04/24/25 21:00 04/26/25 21:50 Atorvastatin 20 Mg Tablet PO 20 mg HS ALINA Administration Calcium Acetate 667 mg 04/24/25 09:00 04/27/25 08:53 Calcium Acetate 667 Mg Tablet PO 667 mg DAILY ALINA Administration Colestipol HCl 2 gm 04/24/25 09:00 04/27/25 08:53 Colestipol Hcl 1 Gm Tablet PO 2 gm DAILY ALINA Administration Dextrose 12.5 gm 04/24/25 01:39 Dextrose 50% 25 Gm/50 Ml Syringe IV PUSH PRN PRN Hypoglycemia Protocol Escitalopram Oxalate 5 mg 04/24/25 09:00 04/27/25 08:53 Escitalopram Oxalate 5 Mg Tablet PO 5 mg DAILY ALINA Administration Glucagon 1 mg 04/24/25 01:39 Glucagon For Inj 1 Mg Vial IM PRN PRN Hypoglycemia Protocol Glucose 15 gm 04/24/25 01:39 Glucose Oral Gel 15 Gm Of Glucse In 37.5 Gm Tube PO PRN PRN Hypoglycemia Protocol Hydralazine HCl 25 mg 04/24/25 06:00 04/27/25 14:31 Hydralazine Hcl 25 Mg Tablet PO 25 mg Q8HR ALINA Administration Dextrose 1,000 mls @ 100 mls/hr 04/24/25 01:39 Dextrose 5% 1,000 Ml IVPB PRN PRN Hypoglycemia Protocol Albumin Human 50 mls @ 999 mls/hr 04/24/25 09:24 Albutein IVPB 05/24/25 09:23 Q10M PRN HYPOTENSION Meropenem 500 mg/ Sodium 100 mls @ 200 mls/hr 04/26/25 08:00 04/27/25 09:24 Chloride IVPB Infused Q24H ALINA Infusion Insulin Aspart 2 - 5 units 04/24/25 08:00 04/27/25 12:30 Insulin Aspart (*Bkc) 100 Units/Ml SUB-Q Not Given TIDWM [facility] Protocol Isosorbide Mononitrate 30 mg 04/24/25 09:00 04/27/25 08:54 Isosorbide Mononitrate 30 Mg Tab.Er.24h PO 30 mg DAILY ALINA Administration Levothyroxine Sodium 200 mcg 04/24/25 06:30 04/27/25 05:31 Levothyroxine Sodium 100 Mcg Tablet PO 200 mcg DAILY@0630 ALINA Administration Lidocaine/Prilocaine 1 each 04/24/25 09:30 Lidocaine/Prilocaine Cream 2.5-2.5% Tube TOPICAL WITH DIALYSIS PRN for dialysis Protocol Lorazepam 0.5 mg 04/24/25 01:37 04/27/25 09:45 Lorazepam (*Crx) 0.5 Mg Tablet PO 0.5 mg BID PRN Administration Anxiety Metoprolol Succinate 50 mg 04/24/25 09:00 04/27/25 08:50 Metoprolol Succinate Ext Rel 50 Mg Tabcr PO 50 mg QAM ALINA Administration Montelukast Sodium 10 mg 04/24/25 09:00 04/27/25 08:54 Montelukast Sodium 10 Mg Tablet PO 10 mg DAILY ALINA Administration Ropinirole HCl 0.5 mg 04/24/25 09:00 04/27/25 08:54 Ropinirole Hcl 0.5 Mg Tablet PO 0.5 mg Q12HR ALINA Administration Fluticasone/Salmeterol 2 puff 04/24/25 08:00 04/27/25 08:00 Fluticasone/Salmeterol 115-21 Mcg Inhaler 1 Puff INHALATION 2 puff Q12HRT ALINA Administration Tramadol HCl 25 mg 04/24/25 01:47 04/27/25 09:45 Tramadol Hcl (*Crx) 25 Mg Tablet PO 25 mg Q12H PRN Administration Pain Trazodone HCl 50 mg 04/24/25 21:00 04/26/25 21:50 Trazodone Hcl 50 Mg Tablet PO 50 mg QHS ALINA Administration Vancomycin HCl 1 each 04/24/25 08:09 Vancomycin For Hemodialysis IVPB PRN PRN Vancomycin Protocol Radiology Results: ITS Impressions Head CT 04/23/25 14:01 Impression: 1.No acute intracranial abnormality. Cervical Spine CT 04/23/25 14:05 Impression: No acute abnormality. Chest X-Ray 04/23/25 14:20 IMPRESSION: 1. Probable mild interstitial pulmonary edema with persistent right midlung atelectasis and/or scarring. 2. No significant change from prior. Tibia/Fibula X-Ray 04/23/25 14:20 IMPRESSION: 1. No cortical erosions or periosteal reaction to suggest osteitis. No other acute osseous abnormality. 2. 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 Lower Extremity CTA 04/27/25 13:15 IMPRESSION: 1. Peripheral vascular disease with relatively symmetric severe stenoses at the bilateral popliteal arteries and occlusions of the bilateral distal posterior tibial arteries. There are also appears be a segment occlusion of the left tibioperoneal trunk and proximal aspect of the anterior tibial artery which reconstitutes in the proximal calf via collaterals. 2. Small amount of ascites in the pelvis and visualized lower abdomen. 3. Shotty bilateral inguinal lymph nodes with mildly enlarged likely reactive right inguinal lymph node. Labs Labs: Laboratory Results - last 24 hr 04/26/25 04/26/25 04/27/25 16:21 20:36 06:27 WBC 7.4 RBC 3.05 L Hgb 7.9 L Hct 27.3 L MCV 89.5 MCH 25.9 L MCHC 28.9 L RDW 20.0 H Plt Count 245 MPV 10.2 Immature Gran % (Auto) 0.4 Neut % (Auto) 63.2 Lymph % (Auto) 16.9 L [place] % (Auto) 16.9 H Eos % (Auto) 1.8 Baso % (Auto) 0.8 Lymph # (Auto) 1.25 [place] # (Auto) 1.3 H Eos # (Auto) 0.1 Baso # (Auto) 0.1 Abs Immat Gran (auto) 0.03 Absolute Neuts (auto) 4.7 Absolute Nucleated RBC 0.030 H Band Neutrophils % Not Reportable Nucleated RBC % 0.4 H Platelet Estimate Adequate Hypochromasia Occasional Anisocytosis 1+ Schistocytes None seen Sodium 137 Potassium 4.1 Chloride 102 Carbon Dioxide 22 Anion Gap 13 H BUN 25 H D Creatinine 4.07 H Estim Creat Clear Calc 12 Estimated GFR 11 L Glucose 124 H POC Capillary Glucose 131 H 157 H Calcium 8.0 L Total Bilirubin 0.8 AST 130 H ALT 66 H Alkaline Phosphatase 119 Total Protein 6.8 Albumin 3.0 L 04/27/25 04/27/25 07:44 11:28 WBC RBC Hgb Hct MCV MCH MCHC RDW Plt Count MPV Immature Gran % (Auto) Neut % (Auto) Lymph % (Auto) [place] % (Auto) Eos % (Auto) Baso % (Auto) Lymph # (Auto) [place] # (Auto) Eos # (Auto) Baso # (Auto) Abs Immat Gran (auto) Absolute Neuts (auto) Absolute Nucleated RBC Band Neutrophils % Nucleated RBC % Platelet Estimate Hypochromasia Anisocytosis Schistocytes Sodium Potassium Chloride Carbon Dioxide Anion Gap BUN Creatinine Estim Creat Clear Calc Estimated GFR Glucose POC Capillary Glucose 121 H 178 H Calcium Total Bilirubin AST ALT Alkaline Phosphatase Total Protein Albumin
[2025-04-27] MEDS: ATORVASTATIN 20 MG TABLET PO (20:27)
[2025-04-28] VITALS (25 sets, daily range): BP systolic 114–180; BP diastolic 48–90; PULSE 51–93; RESP 16–20; TEMP 36.2–37.7; O2SAT 94–100
[2025-04-28] MEDS: LEVOTHYROXINE SODIUM 100 MCG TABLET 200 MCG PO (05:33)
[2025-04-28 05:54] LABS: Hematocrit 28.3 % (37.0-47.0); Hemoglobin 8.3 g/dL (12.0-15.0); Immature Granulocyte Percent A 1.0 % (0-0.5); Lymphocytes Absolute Auto 0.99 K/mm3 (0.9-3.2); Mean Corpuscular HGB Conc 29.3 g/dl (32-36); Mean Corpuscular Hemoglobin 26.7 pg (26-34); Mean Corpuscular Volume 91.0 fl (80-100); Nucleated Red Blood Cells Absolute Auto 0.040 K/mm3 (0.0-0.012); Nucleated Red Blood Cells Perc 0.4 % (0.0-0.2); Platelet Count Result 261 k/mm3 (150-375); Red Blood Count 3.11 M/mm3 (4.2-5.4); White Blood Count 9.2 K/mm3 (4.5-10.0)
[2025-04-28 06:24] LABS: Anisocytosis 1+; Hypochromasia 2+
[2025-04-28 06:25] LABS: Burr Cells 1+; Schistocytes None Seen
[2025-04-28 06:28] LABS: Alanine Aminotransferase 88 U/L (6-35); Albumin Level 3.2 g/dL (3.5-5.1); Alkaline Phosphatase 137 U/L (38-126); Anion Gap 14 mmol/L (4-12); Aspartate Amino Transferase 152 U/L (14-36); Bilirubin,Total 0.9 mg/dL (0.2-1.3); Blood Urea Nitrogen 32 mg/dL (7-17); Calcium 8.1 mg/dL (8.4-10.2); Carbon Dioxide 20 mmol/L (22-30); Chloride 101 mmol/L (98-107); Estimated CRCL calculation 9 ml/min; Estimated Glomerular Filt Rate 8; Glucose 153 mg/dL (65-110); Potassium 4.5 mmol/L (3.4-5.0); Sodium 135 mmol/L (137-145); Total Protein 7.3 g/dL (6.3-8.2)
--- NOTE | 2025-04-28 08:00 | P.PNNP_ITS ---
Progress Note: A&P Assessment and Plan (1) End stage renal disease: Code(s): N18.6 - End stage renal disease Status: Chronic Assessment and Plan: * HD will be done later today. * volume status ok * 2L off ordered * Potassium, bicarbonate, and BUN are looking okay. * to be dialyzed on a 3K bath (2) Frequent falls: Code(s): R29.6 - Repeated falls Status: Acute Assessment and Plan: * as noted by history * PT/OT as tolerated * possible need for placement (3) UTI (urinary tract infection): Code(s): N39.0 - Urinary tract infection, site not specified Status: Acute Assessment and Plan: * admission UA highly suggestive * Blood cultures pending. Urine culture shows Gram-negative bacilli. * finished to ceftriaxone (4) Leg wound, right: Code(s): S81.801A - Unspecified open wound, right lower leg, initial encounter Status: Acute Assessment and Plan: * as noted on presentation * local wound care. * on ceftriaxone, vancomycin, Flagyl. (5) Anemia: Code(s): D64.9 - Anemia, unspecified Status: Chronic Assessment and Plan: * due to ESRD * RADHA/Epogen with HD * Hemoglobin stable in the 7s (6) COPD (chronic obstructive pulmonary disease): Qualifiers: COPD type: unspecified COPD Qualified Code(s): J44.9 - Chronic obstructive pulmonary disease, unspecified Code(s): J44.9 - Chronic obstructive pulmonary disease, unspecified Status: Acute Assessment and Plan: * no evidence of exacerbation * continue home inhalers * complicated by RAINA * continue home CPAP * follow respiratory status (7) Hypertension: Qualifiers: Hypertension type: unspecified Qualified Code(s): I10 - Essential (primary) hypertension Code(s): I10 - Essential (primary) hypertension Status: Chronic Assessment and Plan: * systolic 120s to 160s * a Bit higher the morning before dialysis. * resumed home BP medications * will remove fluid today and see how the blood pressure is. (8) Type 2 diabetes mellitus with hyperglycemia: Qualifiers: Diabetes mellitus senior living insulin use: with long filler cigar roller machine use Qualified Code(s): E11.65 - Type 2 diabetes mellitus with hyperglycemia; Z79.4 - care home (current) use of insulin Code(s): E11.65 - Type 2 diabetes mellitus with hyperglycemia Status: Chronic Assessment and Plan: * follow accu-cheks * glycemic control per hospitalist Subjective Date/time seen: 04/28/25 08:00 Interval history: patient is alert. Feels okay. Exam Narrative: WDWN in NAD skin no rash head ncat lungs clear To auscultation cor reg no rub or gallop abd BS+ nontender and soft ext no edema or cyanosis. Objective Data Vital Signs Vital Signs: Vital Signs - 24 hr 04/27/25 08:50 04/27/25 08:50 04/27/25 08:54 Temperature Pulse Rate 53 L 53 L Respiratory Rate Blood Pressure Pulse Oximetry Oxygen Delivery Room Air 04/27/25 12:00 04/27/25 14:00 04/27/25 16:00 Temperature 97.2 F L 97.2 F L 97.3 F L Pulse Rate 53 L 55 L 56 L Respiratory Rate 17 18 16 Blood Pressure 160/56 H 153/57 H 147/52 H Pulse Oximetry 100 97 96 Oxygen Delivery 04/27/25 20:00 04/27/25 20:00 04/27/25 20:33 Temperature 97.1 F L Pulse Rate 56 L 54 L Respiratory Rate 18 20 Blood Pressure 155/94 H Pulse Oximetry 96 Oxygen Delivery Room Air 04/27/25 20:38 04/28/25 00:00 04/28/25 04:00 Temperature 97.2 F L 97.1 F L Pulse Rate 60 53 L 54 L Respiratory Rate 13 18 18 Blood Pressure 161/71 H 150/66 H Pulse Oximetry 95 100 99 Oxygen Delivery Autopap Intake/Output Intake/Output: Intake & Output 04/25/25 04/26/25 04/27/25 04/28/25 23:59 23:59 23:59 23:59 Intake Total 1220 878 784 100 Output Total 2500 Balance 1220 -8132 784 100 Meds/Results Medications: Active Medications Generic Name Dose Route Start Last Admin Trade Name Felipe PRN Reason Stop Dose Admin Albuterol 2.5 mg 04/24/25 01:37 Albuterol Sulfate Neb 2.5 Mg/3 Ml Inh INHALATION Q4HRT PRN Shortness Of Breath Or Wheezing Amiodarone HCl 200 mg 04/24/25 08:00 04/27/25 08:54 Amiodarone Hcl 200 Mg Tablet PO 200 mg DAILY@0800 ALINA Administration Apixaban 2.5 mg 04/24/25 09:00 04/27/25 20:27 Apixaban 2.5 Mg Tablet PO 2.5 mg Q12HR ALINA Administration Atorvastatin Calcium 20 mg 04/24/25 21:00 04/27/25 20:27 Atorvastatin 20 Mg Tablet PO 20 mg HS ALINA Administration Calcium Acetate 667 mg 04/24/25 09:00 04/27/25 08:53 Calcium Acetate 667 Mg Tablet PO 667 mg DAILY ALINA Administration Colestipol HCl 2 gm 04/24/25 09:00 04/27/25 08:53 Colestipol Hcl 1 Gm Tablet PO 2 gm DAILY ALINA Administration Dextrose 12.5 gm 04/24/25 01:39 Dextrose 50% 25 Gm/50 Ml Syringe IV PUSH PRN PRN Hypoglycemia Protocol Escitalopram Oxalate 5 mg 04/24/25 09:00 04/27/25 08:53 Escitalopram Oxalate 5 Mg Tablet PO 5 mg DAILY ALINA Administration Glucagon 1 mg 04/24/25 01:39 Glucagon For Inj 1 Mg Vial IM PRN PRN Hypoglycemia Protocol Glucose 15 gm 04/24/25 01:39 Glucose Oral Gel 15 Gm Of Glucse In 37.5 Gm Tube PO PRN PRN Hypoglycemia Protocol Hydralazine HCl 25 mg 04/24/25 06:00 04/27/25 14:31 Hydralazine Hcl 25 Mg Tablet PO 25 mg Q8HR ALINA Administration Dextrose 1,000 mls @ 100 mls/hr 04/24/25 01:39 Dextrose 5% 1,000 Ml IVPB PRN PRN Hypoglycemia Protocol Albumin Human 50 mls @ 999 mls/hr 04/24/25 09:24 Albutein IVPB 05/24/25 09:23 Q10M PRN HYPOTENSION Meropenem 500 mg/ Sodium 100 mls @ 200 mls/hr 04/26/25 08:00 04/27/25 09:24 Chloride IVPB Infused Q24H ALINA Infusion Albumin Human 50 mls @ 999 mls/hr 04/27/25 14:35 Albutein IVPB 04/28/25 14:34 Q10M PRN HYPOTENSION Vancomycin HCl 750 mg in 250 mls @ 250 mls/hr 04/28/25 16:00 Vancomycin 750 Mg/Ns 250 Ml IVPB 04/28/25 16:59 ONCE ONE Insulin Aspart 2 - 5 units 04/24/25 08:00 04/27/25 17:51 Insulin Aspart (*Bkc) 100 Units/Ml SUB-Q Not Given TIDWM ALINA Protocol Isosorbide Mononitrate 30 mg 04/24/25 09:00 04/27/25 08:54 Isosorbide Mononitrate 30 Mg Tab.Er.24h PO 30 mg DAILY ALINA Administration Levothyroxine Sodium 200 mcg 04/24/25 06:30 04/28/25 05:33 Levothyroxine Sodium 100 Mcg Tablet PO 200 mcg DAILY@0630 ALINA Administration Lidocaine/Prilocaine 1 each 04/24/25 09:30 Lidocaine/Prilocaine Cream 2.5-2.5% Tube TOPICAL WITH DIALYSIS PRN for dialysis Protocol Lorazepam 0.5 mg 04/24/25 01:37 04/27/25 09:45 Lorazepam (*Crx) 0.5 Mg Tablet PO 0.5 mg BID PRN Administration Anxiety Metoprolol Succinate 50 mg 04/24/25 09:00 04/27/25 08:50 Metoprolol Succinate Ext Rel 50 Mg Tabcr PO 50 mg QAM ALINA Administration Montelukast Sodium 10 mg 04/24/25 09:00 04/27/25 08:54 Montelukast Sodium 10 Mg Tablet PO 10 mg DAILY ALINA Administration Ropinirole HCl 0.5 mg 04/24/25 09:00 04/27/25 20:27 Ropinirole Hcl 0.5 Mg Tablet PO 0.5 mg Q12HR ALINA Administration Fluticasone/Salmeterol 2 puff 04/24/25 08:00 04/27/25 20:33 Fluticasone/Salmeterol 115-21 Mcg Inhaler 1 Puff INHALATION 2 puff Q12HRT ALNIA Administration Tramadol HCl 25 mg 04/24/25 01:47 04/27/25 09:45 Tramadol Hcl (*Crx) 25 Mg Tablet PO 25 mg Q12H PRN Administration Pain Trazodone HCl 50 mg 04/24/25 21:00 04/27/25 20:27 Trazodone Hcl 50 Mg Tablet PO 50 mg QHS ALINA Administration Vancomycin HCl 1 each 04/24/25 08:09 Vancomycin For Hemodialysis IVPB PRN PRN Vancomycin Protocol Radiology Results: ITS Impressions Head CT 04/23/25 14:01 Impression: 1.No acute intracranial abnormality. Cervical Spine CT 04/23/25 14:05 Impression: No acute abnormality. Chest X-Ray 04/23/25 14:20 IMPRESSION: 1. Probable mild interstitial pulmonary edema with persistent right midlung atelectasis and/or scarring. 2. No significant change from prior. Tibia/Fibula X-Ray 04/23/25 14:20 IMPRESSION: 1. No cortical erosions or periosteal reaction to suggest osteitis. No other acute osseous abnormality. 2. 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 Lower Extremity CTA 04/27/25 13:15 IMPRESSION: 1. Peripheral vascular disease with relatively symmetric severe stenoses at the bilateral popliteal arteries and occlusions of the bilateral distal posterior tibial arteries. There are also appears be a segment occlusion of the left tibioperoneal trunk and proximal aspect of the anterior tibial artery which reconstitutes in the proximal calf via collaterals. 2. Small amount of ascites in the pelvis and visualized lower abdomen. 3. Shotty bilateral inguinal lymph nodes with mildly enlarged likely reactive right inguinal lymph node. Labs Labs: Laboratory Results - last 24 hr 04/27/25 04/27/25 04/27/25 11:28 16:33 16:42 WBC RBC Hgb Hct MCV MCH MCHC RDW Plt Count MPV Immature Gran % (Auto) Neut % (Auto) Lymph % (Auto) [place] % (Auto) Eos % (Auto) Baso % (Auto) Lymph # (Auto) [place] # (Auto) Eos # (Auto) Baso # (Auto) Abs Immat Gran (auto) Absolute Neuts (auto) Absolute Nucleated RBC Band Neutrophils % Nucleated RBC % Platelet Estimate Hypochromasia Anisocytosis Junior Cells Schistocytes Sodium Potassium Chloride Carbon Dioxide Anion Gap BUN Creatinine Estim Creat Clear Calc Estimated GFR Glucose POC Capillary Glucose 178 H 177 H Lactic Acid 3.5 H Calcium Phosphorus Total Bilirubin AST ALT Alkaline Phosphatase Total Protein Albumin Random Vancomycin 04/27/25 04/27/25 04/28/25 19:34 21:08 05:32 WBC 9.2 RBC 3.11 L Hgb 8.3 L Hct 28.3 L MCV 91.0 MCH 26.7 MCHC 29.3 L RDW 20.7 H Plt Count 261 MPV 10.3 Immature Gran % (Auto) 1.0 H Neut % (Auto) 71.4 Lymph % (Auto) 10.8 L [place] % (Auto) 14.6 H Eos % (Auto) 1.4 Baso % (Auto) 0.8 Lymph # (Auto) 0.99 [place] # (Auto) 1.3 H Eos # (Auto) 0.1 Baso # (Auto) 0.1 Abs Immat Gran (auto) 0.09 H Absolute Neuts (auto) 6.6 Absolute Nucleated RBC 0.040 H Band Neutrophils % Not Reportable Nucleated RBC % 0.4 H Platelet Estimate Adequate Hypochromasia 2+ Anisocytosis 1+ Junior Cells 1+ Schistocytes None seen Sodium 135 L Potassium 4.5 Chloride 101 Carbon Dioxide 20 L Anion Gap 14 H BUN 32 H Creatinine 5.16 H Estim Creat Clear Calc 9 Estimated GFR 8 L Glucose 153 H POC Capillary Glucose 174 H Lactic Acid 3.3 H Calcium 8.1 L Phosphorus 3.9 Total Bilirubin 0.9 AST 152 H ALT 88 H Alkaline Phosphatase 137 H Total Protein 7.3 Albumin 3.2 L Random Vancomycin 15.8
[2025-04-28] MEDS: LIDOCAINE/PRILOCAINE CREAM 2.5-2.5% TUBE 1 EACH TOPICAL (08:09)
[2025-04-28] MEDS: FLUTICASONE/SALMETEROL 115-21 MCG INHALER 1 PUFF 2 PUFF INHALATION ×2 (08:15→23:53)
--- NOTE | 2025-04-28 08:20 | PC.NURSE ---
pt to dialysis via bed
[2025-04-28] MEDS: EPOETIN ALFA-EPBX 10,000 UNITS/ML VIAL 10000 UNITS IV PUSH (10:51)
--- NOTE | 2025-04-28 13:32 | P.PNIM_ITS ---
Assessment and Plan Assessment and Plan (1) Acute UTI: Code(s): N39.0 - Urinary tract infection, site not specified Status: Acute Assessment and Plan: * Started on Rocephin in ER * blood cultures pending * Urine culture - klebsiella pneumoniae * check daily lactic acid levels. * patient's blood pressure stable at 147/55 and heart rate is 54. Afebrile, WBC 10.9. * last month her urine culture grew mixed urogenital agusto * Given ESBL and limited susceptibility - will need to continue IV Meropenem (2) Leg wound, right: Code(s): S81.801A - Unspecified open wound, right lower leg, initial encounter Status: Acute Assessment and Plan: * chronic wound to right lower extremity * Started on vancomycin * wound and blood cultures pending * wound Care consulted * Not given any IV fluids as she is a dialysis patient. * the patient is also on p.o. clindamycin from home please clarify if he patient is still taking this and for what purpose . * Lactic 2.2 ->2.1 -> 2.6 * ID consult placed by admitting provider * Add Flagyl to Vancomycin, continue Rocephin * Blood cultures negative (3) ESRD on hemodialysis: Code(s): N18.6 - End stage renal disease; Z99.2 - Dependence on renal dialysis Status: Acute Assessment and Plan: * left upper arm AV fistula has a positive bruit and thrill. * nephrology consulted, following * continue to monitor magnesium phos and other electrolytes * the patient has dialysis on Sunday outpatient (4) Hypothyroidism (acquired): Onset Date: ~12/23/22 Code(s): E03.9 - Hypothyroidism, unspecified Status: Acute Assessment and Plan: * continue levothyroxine (5) Diabetes: Code(s): E11.9 - Type 2 diabetes mellitus without complications Status: Acute Assessment and Plan: * Accu-Cheks AC and HS with sliding scale insulin and hypoglycemic protocol. * diabetic diet * pharmacy to reduce long-acting home insulin by 20%. (6) COPD (chronic obstructive pulmonary disease): Qualifiers: COPD type: unspecified COPD Qualified Code(s): J44.9 - Chronic obstructive pulmonary disease, unspecified Code(s): J44.9 - Chronic obstructive pulmonary disease, unspecified Status: Acute Assessment and Plan: * continue with home inhalers including albuterol and budesonide. * continue singular (7) RAINA (obstructive sleep apnea): Code(s): G47.33 - Obstructive sleep apnea (adult) (pediatric) Status: Acute Assessment and Plan: * titrate CPAP to home settings (8) Generalized weakness: Code(s): R53.1 - Weakness Status: Acute Assessment and Plan: * PT and OT to evaluate patient. (9) Atrial fibrillation: Code(s): I48.91 - Unspecified atrial fibrillation Status: Chronic Assessment and Plan: * patient in sinus bradycardia * continue metoprolol - Hold if HR < 50 * continue amiodarone, apixaban * HR is 54 an EKG was sinus bradycardia (10) Hyperlipidemia LDL goal <70: Code(s): E78.5 - Hyperlipidemia, unspecified Status: Acute Assessment and Plan: * continue with colestipol (11) Hypertension: Qualifiers: Hypertension type: unspecified Qualified Code(s): I10 - Essential (primary) hypertension Code(s): I10 - Essential (primary) hypertension Status: Chronic Assessment and Plan: * continue with hydralazine * continue with metoprolol if blood pressure allows. Currently blood pressure is 147/55. Hold if heart rate less than 50 (12) RLS (restless legs syndrome): Code(s): G25.81 - Restless legs syndrome Status: Acute Assessment and Plan: * continue to open her (13) Insomnia: Code(s): G47.00 - Insomnia, unspecified Status: Acute Assessment and Plan: * continue trazodone Plan I did speak with the pharmacist today and she has stated that the Infectious Disease pharmacist would take a look at the antibiotic and determine if clindamycin is on her home medication list needs to be continued. The patient has a history of DVT but is already apixaban. Subjective Date/time seen: 04/28/25 13:32 Interval history: 74-year-old female patient who has a history of AFib, DVT, end-stage renal disease on dialysis, congestive heart failure, COPD diabetes and a history of CVA with expressive aphasia. The patient came in via EMS after an unwitnessed fall that occurred last night. 04/28/2025 Patient sitting comfortably at bedside during exam. Given ESBL UTI - will continue IV abx (Meropenem) until course is complete as she is resistant to oral options. RUQ US shows a small amount of perihepatic ascites and evidence of elevated right heart pressure. Discussed with who states that at this point he would prefer her to be discharged to SNF. Will work with care coordination regarding discharge at this time. Otherwise patient is hemodynamically stable, no concerns from family at this point. Review of Systems Review of Systems: ROS unobtainable: Yes unobtainable due to medical condition and unobtainable due to mental status Exam Const: General: cooperative, awake, Physically active, average body habitus and well nourished Nutritional Appearance: average body habitus and well nourished Orientation/consciousness: oriented to person, oriented to place, oriented to time and patient oriented x3 HENMT: Head: normal to inspection, No palpable skull fracture present, normocephalic, atraumatic and abrasion Ears: hearing grossly normal bilaterally Eyes: General: appearance normal, both eyes and all related structures Alignment and Position: alignment normal Periorbital: periorbital findings normal Eyelids: eyelids normal Neck: Neck: normal visual inspection, full ROM, no lymphadenopathy and trachea midline Resp: Effort & Inspection: normal respiratory effort Auscultation: clear to auscultation bilaterally Cardio: Palpation: normal PMI Rate: regular rate Rhythm: regular rhythm Heart sounds: S2 normal heart sound present GI: Inspection: normal to inspection Auscultation: normal bowel sounds : General: Yes no CVA tenderness Back/Spine/Pelvis: Back: no CVA tenderness Cervical Spine: cervical ROM normal Skin: General skin exam: normal color Lesions: no lesions Other: Left upper arm AV fistula with positive bruit and thrill. Large right diabetic ulcer noted to posterior ankle exposing the Achilles tendon. The area is approximately 5 by 7 with leong malodorous discharge. The area is unstageable. Erythema noted around the ulcerated area. Please see wound photio There is a dressing over the right forearm that I was unable to remove at this time and the nurse stated that it was a skin tear. Neuro: General: oriented to person, oriented to place, oriented to time and patient oriented x3 Extrem: General: normal to inspection Right upper extremity: normal to inspection and shoulder/upper arm Left upper extremity: normal to inspection and shoulder/upper arm Psych: Affect: normal affect Objective Data Vital Signs Vital Signs: Vital Signs - 24 hr 04/27/25 14:00 04/27/25 16:00 04/27/25 20:00 Temperature 97.2 F L 97.3 F L 97.1 F L Pulse Rate 55 L 56 L 56 L Respiratory Rate 18 16 18 Blood Pressure 153/57 H 147/52 H 155/94 H Pulse Oximetry 97 96 96 Oxygen Delivery Fraction of Inspired Oxygen 04/27/25 20:00 04/27/25 20:33 04/27/25 20:38 Temperature Pulse Rate 54 L 60 Respiratory Rate 20 13 Blood Pressure Pulse Oximetry 95 Oxygen Delivery Room Air Autopap Fraction of Inspired Oxygen 04/28/25 00:00 04/28/25 04:00 04/28/25 08:00 Temperature 97.2 F L 97.1 F L 97.3 F L Pulse Rate 53 L 54 L 66 Respiratory Rate 18 18 18 Blood Pressure 161/71 H 150/66 H 147/48 H Pulse Oximetry 100 99 96 Oxygen Delivery Fraction of Inspired Oxygen 04/28/25 08:15 04/28/25 08:15 04/28/25 08:15 Temperature Pulse Rate 93 92 Respiratory Rate 18 20 Blood Pressure Pulse Oximetry 94 Oxygen Delivery Room Air Room Air Fraction of Inspired Oxygen 21 04/28/25 08:24 04/28/25 08:45 04/28/25 09:00 Temperature 98.1 F Pulse Rate 53 L 52 L 56 L Respiratory Rate 16 Blood Pressure 156/78 H 168/82 H 161/82 H Pulse Oximetry 98 Oxygen Delivery Fraction of Inspired Oxygen 04/28/25 09:15 04/28/25 09:30 04/28/25 09:45 Temperature Pulse Rate 56 L 55 L 51 L Respiratory Rate Blood Pressure 174/90 H 161/67 H 167/80 H Pulse Oximetry Oxygen Delivery Fraction of Inspired Oxygen 04/28/25 10:00 04/28/25 10:15 04/28/25 10:30 Temperature Pulse Rate 54 L 57 L 57 L Respiratory Rate Blood Pressure 124/63 160/72 H 160/72 H Pulse Oximetry Oxygen Delivery Fraction of Inspired Oxygen 04/28/25 10:45 04/28/25 11:00 04/28/25 11:15 Temperature Pulse Rate 58 L 67 68 Respiratory Rate Blood Pressure 166/79 H 170/69 H 161/72 H Pulse Oximetry Oxygen Delivery Fraction of Inspired Oxygen 04/28/25 11:30 04/28/25 11:45 04/28/25 11:45 Temperature Pulse Rate 58 L 60 Respiratory Rate Blood Pressure 180/78 H 138/58 L 161/72 H Pulse Oximetry Oxygen Delivery Fraction of Inspired Oxygen 04/28/25 12:00 04/28/25 12:16 04/28/25 12:20 Temperature 98.2 F Pulse Rate 61 60 60 Respiratory Rate 16 Blood Pressure 114/78 129/80 152/68 H Pulse Oximetry 96 Oxygen Delivery Fraction of Inspired Oxygen Intake/Output Intake/Output: Intake & Output 04/25/25 04/26/25 04/27/25 04/28/25 23:59 23:59 23:59 23:59 Intake Total 1220 878 784 100 Output Total 2500 2000 Balance 1220 -4322 784 1900 Meds/Results Medications: Active Medications Generic Name Dose Route Start Last Admin Trade Name Freq PRN Reason Stop Dose Admin Albuterol 2.5 mg 04/24/25 01:37 Albuterol Sulfate Neb 2.5 Mg/3 Ml Inh INHALATION Q4HRT PRN Shortness Of Breath Or Wheezing Amiodarone HCl 200 mg 04/24/25 08:00 04/27/25 08:54 Amiodarone Hcl 200 Mg Tablet PO 200 mg DAILY@0800 ALINA Administration Apixaban 2.5 mg 04/24/25 09:00 04/27/25 20:27 Apixaban 2.5 Mg Tablet PO 2.5 mg Q12HR ALINA Administration Atorvastatin Calcium 20 mg 04/24/25 21:00 04/27/25 20:27 Atorvastatin 20 Mg Tablet PO 20 mg HS ALINA Administration Calcium Acetate 667 mg 04/24/25 09:00 04/27/25 08:53 Calcium Acetate 667 Mg Tablet PO 667 mg DAILY ALINA Administration Colestipol HCl 2 gm 04/24/25 09:00 04/27/25 08:53 Colestipol Hcl 1 Gm Tablet PO 2 gm DAILY ALIAN Administration Dextrose 12.5 gm 04/24/25 01:39 Dextrose 50% 25 Gm/50 Ml Syringe IV PUSH PRN PRN Hypoglycemia Protocol Escitalopram Oxalate 5 mg 04/24/25 09:00 04/27/25 08:53 Escitalopram Oxalate 5 Mg Tablet PO 5 mg DAILY ALINA Administration Glucagon 1 mg 04/24/25 01:39 Glucagon For Inj 1 Mg Vial IM PRN PRN Hypoglycemia Protocol Glucose 15 gm 04/24/25 01:39 Glucose Oral Gel 15 Gm Of Glucse In 37.5 Gm Tube PO PRN PRN Hypoglycemia Protocol Hydralazine HCl 25 mg 04/24/25 06:00 04/27/25 14:31 Hydralazine Hcl 25 Mg Tablet PO 25 mg Q8HR ALINA Administration Dextrose 1,000 mls @ 100 mls/hr 04/24/25 01:39 Dextrose 5% 1,000 Ml IVPB PRN PRN Hypoglycemia Protocol Albumin Human 50 mls @ 999 mls/hr 04/24/25 09:24 Albutein IVPB 05/24/25 09:23 Q10M PRN HYPOTENSION Meropenem 500 mg/ Sodium 100 mls @ 200 mls/hr 04/26/25 08:00 04/27/25 09:24 Chloride IVPB Infused Q24H ALINA Infusion Albumin Human 50 mls @ 999 mls/hr 04/27/25 14:35 Albutein IVPB 04/28/25 14:34 Q10M PRN HYPOTENSION Vancomycin HCl 750 mg in 250 mls @ 250 mls/hr 04/28/25 16:00 Vancomycin 750 Mg/Ns 250 Ml IVPB 04/28/25 16:59 ONCE ONE Insulin Aspart 2 - 5 units 04/24/25 08:00 04/27/25 17:51 Insulin Aspart (*Bkc) 100 Units/Ml SUB-Q Not Given TIDWM ALINA Protocol Isosorbide Mononitrate 30 mg 04/24/25 09:00 04/27/25 08:54 Isosorbide Mononitrate 30 Mg Tab.Er.24h PO 30 mg DAILY ALINA Administration Levothyroxine Sodium 200 mcg 04/24/25 06:30 04/28/25 05:33 Levothyroxine Sodium 100 Mcg Tablet PO 200 mcg DAILY@0630 ALINA Administration Lidocaine/Prilocaine 1 each 04/24/25 09:30 04/28/25 08:09 Lidocaine/Prilocaine Cream 2.5-2.5% Tube TOPICAL 1 each WITH DIALYSIS PRN Administration for dialysis Protocol Lorazepam 0.5 mg 04/24/25 01:37 04/27/25 09:45 Lorazepam (*Crx) 0.5 Mg Tablet PO 0.5 mg BID PRN Administration Anxiety Metoprolol Succinate 50 mg 04/24/25 09:00 04/27/25 08:50 Metoprolol Succinate Ext Rel 50 Mg Tabcr PO 50 mg QAM ALINA Administration Montelukast Sodium 10 mg 04/24/25 09:00 04/27/25 08:54 Montelukast Sodium 10 Mg Tablet PO 10 mg DAILY ALINA Administration Ropinirole HCl 0.5 mg 04/24/25 09:00 04/27/25 20:27 Ropinirole Hcl 0.5 Mg Tablet PO 0.5 mg Q12HR ALINA Administration Fluticasone/Salmeterol 2 puff 04/24/25 08:00 04/28/25 08:15 Fluticasone/Salmeterol 115-21 Mcg Inhaler 1 Puff INHALATION 2 puff Q12HRT ALINA Administration Tramadol HCl 25 mg 04/24/25 01:47 04/27/25 09:45 Tramadol Hcl (*Crx) 25 Mg Tablet PO 25 mg Q12H PRN Administration Pain Trazodone HCl 50 mg 04/24/25 21:00 04/27/25 20:27 Trazodone Hcl 50 Mg Tablet PO 50 mg QHS ALINA Administration Vancomycin HCl 1 each 04/24/25 08:09 Vancomycin For Hemodialysis IVPB PRN PRN Vancomycin Protocol Radiology Results: ITS Impressions Head CT 04/23/25 14:01 Impression: 1.No acute intracranial abnormality. Cervical Spine CT 04/23/25 14:05 Impression: No acute abnormality. Chest X-Ray 04/23/25 14:20 IMPRESSION: 1. Probable mild interstitial pulmonary edema with persistent right midlung atelectasis and/or scarring. 2. No significant change from prior. Tibia/Fibula X-Ray 04/23/25 14:20 IMPRESSION: 1. No cortical erosions or periosteal reaction to suggest osteitis. No other acute osseous abnormality. 2. 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 Lower Extremity CTA 04/27/25 13:15 IMPRESSION: 1. Peripheral vascular disease with relatively symmetric severe stenoses at the bilateral popliteal arteries and occlusions of the bilateral distal posterior tibial arteries. There are also appears be a segment occlusion of the left tibioperoneal trunk and proximal aspect of the anterior tibial artery which re constitutes in the proximal calf via collaterals. 2. Small amount of ascites in the pelvis and visualized lower abdomen. 3. Shotty bilateral inguinal lymph nodes with mildly enlarged likely reactive right inguinal lymph node. Abdomen Ultrasound 04/28/25 12:57 IMPRESSION: 1. Small amount of perihepatic ascites. 2. Normal directional flow in the main portal vein but with increased pulsatility which can be seen with right heart failure, tricuspid regurgitation or other cause of elevated right heart pressures. Labs Labs: Laboratory Results - last 24 hr 04/27/25 04/27/25 04/27/25 16:33 16:42 19:34 WBC RBC Hgb Hct MCV MCH MCHC RDW Plt Count MPV Immature Gran % (Auto) Neut % (Auto) Lymph % (Auto) Foster % (Auto) Eos % (Auto) Baso % (Auto) Lymph # (Auto) Foster # (Auto) Eos # (Auto) Baso # (Auto) Abs Immat Gran (auto) Absolute Neuts (auto) Absolute Nucleated RBC Band Neutrophils % Nucleated RBC % Platelet Estimate Hypochromasia Anisocytosis Junior Cells Schistocytes Sodium Potassium Chloride Carbon Dioxide Anion Gap BUN Creatinine Estim Creat Clear Calc Estimated GFR Glucose POC Capillary Glucose 177 H Lactic Acid 3.5 H 3.3 H Calcium Phosphorus Total Bilirubin AST ALT Alkaline Phosphatase Total Protein Albumin Random Vancomycin 04/27/25 04/28/25 04/28/25 21:08 05:32 08:02 WBC 9.2 RBC 3.11 L Hgb 8.3 L Hct 28.3 L MCV 91.0 MCH 26.7 MCHC 29.3 L RDW 20.7 H Plt Count 261 MPV 10.3 Immature Gran % (Auto) 1.0 H Neut % (Auto) 71.4 Lymph % (Auto) 10.8 L Foster % (Auto) 14.6 H Eos % (Auto) 1.4 Baso % (Auto) 0.8 Lymph # (Auto) 0.99 Foster # (Auto) 1.3 H Eos # (Auto) 0.1 Baso # (Auto) 0.1 Abs Immat Gran (auto) 0.09 H Absolute Neuts (auto) 6.6 Absolute Nucleated RBC 0.040 H Band Neutrophils % Not Reportable Nucleated RBC % 0.4 H Platelet Estimate Adequate Hypochromasia 2+ Anisocytosis 1+ Twilight Cells 1+ Schistocytes None seen Sodium 135 L Potassium 4.5 Chloride 101 Carbon Dioxide 20 L Anion Gap 14 H BUN 32 H Creatinine 5.16 H Estim Creat Clear Calc 9 Estimated GFR 8 L Glucose 153 H POC Capillary Glucose 174 H 145 H Lactic Acid Calcium 8.1 L Phosphorus 3.9 Total Bilirubin 0.9 AST 152 H ALT 88 H Alkaline Phosphatase 137 H Total Protein 7.3 Albumin 3.2 L Random Vancomycin 15.8 Quality VTE Prophylaxis VTE prophylaxis: pharmacologic ordered
--- NOTE | 2025-04-28 18:20 | PC.NURSE ---
additional attempts to get pt to take PO meds, she will not wake up enough to take meds or drink water
--- NOTE | 2025-04-28 18:37 | WNDPHOTO ---
PHOTO ONLY - See Nursing Notes and/ or assessments for documentation.
[2025-04-28] MEDS: ISOSORBIDE MONONITRATE 30 MG TAB.ER.24H PO (18:54)
[2025-04-28] MEDS: METOPROLOL SUCCINATE EXT REL 50 MG TABCR PO (18:54)
[2025-04-28] MEDS: AMIODARONE HCL 200 MG TABLET PO (18:54)
[2025-04-28] MEDS: ESCITALOPRAM OXALATE 5 MG TABLET PO (18:54)
[2025-04-28] MEDS: APIXABAN 2.5 MG TABLET PO (20:44)
[2025-04-28] MEDS: ATORVASTATIN 20 MG TABLET PO (20:44)
[2025-04-29 02:43] VITALS: PULSE 66; RESP 19; O2SAT 95
[2025-04-29] MEDS: LEVOTHYROXINE SODIUM 100 MCG TABLET 200 MCG PO (05:28)
[2025-04-29 05:30] VITALS: BP 140/68; PULSE 57; RESP 18; TEMP 36.5; O2SAT 97
[2025-04-29 05:59] LABS: Hematocrit 27.7 % (37.0-47.0); Hemoglobin 8.3 g/dL (12.0-15.0); Immature Granulocyte Percent A 0.6 % (0-0.5); Lymphocytes Absolute Auto 1.06 K/mm3 (0.9-3.2); Mean Corpuscular HGB Conc 30.0 g/dl (32-36); Mean Corpuscular Hemoglobin 27.3 pg (26-34); Mean Corpuscular Volume 91.1 fl (80-100); Nucleated Red Blood Cells Absolute Auto 0.050 K/mm3 (0.0-0.012); Nucleated Red Blood Cells Perc 0.6 % (0.0-0.2); Platelet Count Result 229 k/mm3 (150-375); Red Blood Count 3.04 M/mm3 (4.2-5.4); White Blood Count 7.8 K/mm3 (4.5-10.0)
[2025-04-29 06:23] LABS: Alanine Aminotransferase 95 U/L (6-35); Albumin Level 3.0 g/dL (3.5-5.1); Alkaline Phosphatase 126 U/L (38-126); Anion Gap 8 mmol/L (4-12); Aspartate Amino Transferase 205 U/L (14-36); Bilirubin,Total 1.1 mg/dL (0.2-1.3); Blood Urea Nitrogen 20 mg/dL (7-17); Calcium 7.9 mg/dL (8.4-10.2); Carbon Dioxide 29 mmol/L (22-30); Chloride 99 mmol/L (98-107); Estimated CRCL calculation 13 ml/min; Estimated Glomerular Filt Rate 12; Glucose 117 mg/dL (65-110); Potassium 4.1 mmol/L (3.4-5.0); Sodium 136 mmol/L (137-145); Total Protein 7.0 g/dL (6.3-8.2)
--- NOTE | 2025-04-29 07:29 | P.PNIM_ITS ---
Assessment and Plan Assessment and Plan (1) Acute UTI: Code(s): N39.0 - Urinary tract infection, site not specified Status: Acute Assessment and Plan: * Started on Rocephin in ER * blood cultures pending * Urine culture - klebsiella pneumoniae * check daily lactic acid levels. * patient's blood pressure stable at 147/55 and heart rate is 54. Afebrile, WBC 10.9. * last month her urine culture grew mixed urogenital agusto * Given ESBL and limited susceptibility - will need to continue IV Meropenem (2) Leg wound, right: Code(s): S81.801A - Unspecified open wound, right lower leg, initial encounter Status: Acute Assessment and Plan: * chronic wound to right lower extremity * Started on vancomycin * wound and blood cultures pending * wound Care consulted * Not given any IV fluids as she is a dialysis patient. * the patient is also on p.o. clindamycin from home please clarify if he patient is still taking this and for what purpose . * Lactic 2.2 ->2.1 -> 2.6 * ID consult placed by admitting provider * Add Flagyl to Vancomycin, continue Rocephin * Blood cultures negative (3) ESRD on hemodialysis: Code(s): N18.6 - End stage renal disease; Z99.2 - Dependence on renal dialysis Status: Acute Assessment and Plan: * left upper arm AV fistula has a positive bruit and thrill. * nephrology consulted, following * continue to monitor magnesium phos and other electrolytes * the patient has dialysis on Sunday outpatient (4) Hypothyroidism (acquired): Onset Date: ~12/23/22 Code(s): E03.9 - Hypothyroidism, unspecified Status: Acute Assessment and Plan: * continue levothyroxine (5) Diabetes: Code(s): E11.9 - Type 2 diabetes mellitus without complications Status: Acute Assessment and Plan: * Accu-Cheks AC and HS with sliding scale insulin and hypoglycemic protocol. * diabetic diet * pharmacy to reduce long-acting home insulin by 20%. (6) COPD (chronic obstructive pulmonary disease): Qualifiers: COPD type: unspecified COPD Qualified Code(s): J44.9 - Chronic obstructive pulmonary disease, unspecified Code(s): J44.9 - Chronic obstructive pulmonary disease, unspecified Status: Acute Assessment and Plan: * continue with home inhalers including albuterol and budesonide. * continue singular (7) RAINA (obstructive sleep apnea): Code(s): G47.33 - Obstructive sleep apnea (adult) (pediatric) Status: Acute Assessment and Plan: * titrate CPAP to home settings (8) Generalized weakness: Code(s): R53.1 - Weakness Status: Acute Assessment and Plan: * PT and OT to evaluate patient. (9) Atrial fibrillation: Code(s): I48.91 - Unspecified atrial fibrillation Status: Chronic Assessment and Plan: * patient in sinus bradycardia * continue metoprolol - Hold if HR < 50 * continue amiodarone, apixaban * HR is 54 an EKG was sinus bradycardia (10) Hyperlipidemia LDL goal <70: Code(s): E78.5 - Hyperlipidemia, unspecified Status: Acute Assessment and Plan: * continue with colestipol (11) Hypertension: Qualifiers: Hypertension type: unspecified Qualified Code(s): I10 - Essential (primary) hypertension Code(s): I10 - Essential (primary) hypertension Status: Chronic Assessment and Plan: * continue with hydralazine * continue with metoprolol if blood pressure allows. Currently blood pressure is 147/55. Hold if heart rate less than 50 (12) RLS (restless legs syndrome): Code(s): G25.81 - Restless legs syndrome Status: Acute Assessment and Plan: * continue to open her (13) Insomnia: Code(s): G47.00 - Insomnia, unspecified Status: Acute Assessment and Plan: * continue trazodone Plan I did speak with the pharmacist today and she has stated that the Infectious Disease pharmacist would take a look at the antibiotic and determine if clindamycin is on her home medication list needs to be continued. The patient has a history of DVT but is already apixaban. Subjective Date/time seen: 04/29/25 07:29 Interval history: 74-year-old female patient who has a history of AFib, DVT, end-stage renal disease on dialysis, congestive heart failure, COPD diabetes and a history of CVA with expressive aphasia. The patient came in via EMS after an unwitnessed fall that occurred last night. 04/29/2025 Patient sitting comfortably at bedside during exam. Review of Systems Review of Systems: ROS unobtainable: Yes unobtainable due to medical condition and unobtainable due to mental status Exam Const: General: cooperative, awake, Physically active, average body habitus and well nourished Nutritional Appearance: average body habitus and well nourished Orientation/consciousness: oriented to person, oriented to place, oriented to time and patient oriented x3 HENMT: Head: normal to inspection, No palpable skull fracture present, n ormocephalic, atraumatic and abrasion Ears: hearing grossly normal bilaterally Eyes: General: appearance normal, both eyes and all related structures Alignment and Position: alignment normal Periorbital: periorbital findings normal Eyelids: eyelids normal Neck: Neck: normal visual inspection, full ROM, no lymphadenopathy and trachea midline Resp: Effort & Inspection: normal respiratory effort Auscultation: clear to auscultation bilaterally Cardio: Palpation: normal PMI Rate: regular rate Rhythm: regular rhythm Heart sounds: S2 normal heart sound present GI: Inspection: normal to inspection Auscultation: normal bowel sounds : General: Yes no CVA tenderness Back/Spine/Pelvis: Back: no CVA tenderness Cervical Spine: cervical ROM normal Skin: General skin exam: normal color Lesions: no lesions Other: Left upper arm AV fistula with positive bruit and thrill. Large right diabetic ulcer noted to posterior ankle exposing the Achilles tendon. The area is approximately 5 by 7 with leong malodorous discharge. The area is unstageable. Erythema noted around the ulcerated area. Please see wound photio There is a dressing over the right forearm that I was unable to remove at this time and the nurse stated that it was a skin tear. Neuro: General: oriented to person, oriented to place, oriented to time and patient oriented x3 Extrem: General: normal to inspection Right upper extremity: normal to inspection and shoulder/upper arm Left upper extremity: normal to inspection and shoulder/upper arm Psych: Affect: normal affect Objective Data Vital Signs Vital Signs: Vital Signs - 24 hr 04/28/25 08:00 04/28/25 08:15 04/28/25 08:15 Temperature 97.3 F L Pulse Rate 66 93 92 Respiratory Rate 18 18 20 Blood Pressure 147/48 H Pulse Oximetry 96 94 Oxygen Delivery Room Air Fraction of Inspired Oxygen 21 04/28/25 08:15 04/28/25 08:24 04/28/25 08:45 Temperature 98.1 F Pulse Rate 53 L 52 L Respiratory Rate 16 Blood Pressure 156/78 H 168/82 H Pulse Oximetry 98 Oxygen Delivery Room Air Fraction of Inspired Oxygen 04/28/25 09:00 04/28/25 09:15 04/28/25 09:30 Temperature Pulse Rate 56 L 56 L 55 L Respiratory Rate Blood Pressure 161/82 H 174/90 H 161/67 H Pulse Oximetry Oxygen Delivery Fraction of Inspired Oxygen 04/28/25 09:45 04/28/25 10:00 04/28/25 10:15 Temperature Pulse Rate 51 L 54 L 57 L Respiratory Rate Blood Pressure 167/80 H 124/63 160/72 H Pulse Oximetry Oxygen Delivery Fraction of Inspired Oxygen 04/28/25 10:30 04/28/25 10:45 04/28/25 11:00 Temperature Pulse Rate 57 L 58 L 67 Respiratory Rate Blood Pressure 160/72 H 166/79 H 170/69 H Pulse Oximetry Oxygen Delivery Fraction of Inspired Oxygen 04/28/25 11:15 04/28/25 11:30 04/28/25 11:45 Temperature Pulse Rate 68 58 L 60 Respiratory Rate Blood Pressure 161/72 H 180/78 H 138/58 L Pulse Oximetry Oxygen Delivery Fraction of Inspired Oxygen 04/28/25 11:45 04/28/25 12:00 04/28/25 12:16 Temperature Pulse Rate 61 60 Respiratory Rate Blood Pressure 161/72 H 114/78 129/80 Pulse Oximetry Oxygen Delivery Fraction of Inspired Oxygen 04/28/25 12:20 04/28/25 15:50 04/28/25 18:54 Temperature 98.2 F 97.1 F L Pulse Rate 60 61 61 Respiratory Rate 16 Blood Pressure 152/68 H 161/53 H Pulse Oximetry 96 95 Oxygen Delivery Fraction of Inspired Oxygen 04/28/25 18:54 04/28/25 20:00 04/28/25 20:00 Temperature 97.5 F L Pulse Rate 61 57 L Respiratory Rate 18 Blood Pressure 142/54 H Pulse Oximetry 98 Oxygen Delivery Room Air Fraction of Inspired Oxygen 04/29/25 02:43 04/29/25 05:30 Temperature 97.7 F Pulse Rate 66 57 L Respiratory Rate 19 18 Blood Pressure 140/68 Pulse Oximetry 95 97 Oxygen Delivery Autopap Fraction of Inspired Oxygen Intake/Output Intake/Output: Intake & Output 12/04/27/25 04/28/25 04/29/25 23:59 23:59 23:59 23:59 Intake Total 878 784 100 Output Total 4065 1999 Balance -1622 784 -7510 Meds/Results Medications: Active Medications Generic Name Dose Route Start Last Admin Trade Name Freq PRN Reason Stop Dose Admin Albuterol 2.5 mg 04/24/25 01:37 Albuterol Sulfate Neb 2.5 Mg/3 Ml Inh INHALATION Q4HRT PRN Shortness Of Breath Or Wheezing Amiodarone HCl 200 mg 04/24/25 08:00 04/28/25 18:54 Amiodarone Hcl 200 Mg Tablet PO 200 mg DAILY@0800 ALINA Administration Apixaban 2.5 mg 04/24/25 09:00 04/28/25 20:44 Apixaban 2.5 Mg Tablet PO 2.5 mg Q12HR ALINA Administration Atorvastatin Calcium 20 mg 04/24/25 21:00 04/28/25 20:44 Atorvastatin 20 Mg Tablet PO 20 mg HS ALINA Administration Calcium Acetate 667 mg 04/24/25 09:00 04/28/25 09:00 Calcium Acetate 667 Mg Tablet PO Not Given DAILY ALINA Colestipol HCl 2 gm 04/24/25 09:00 04/28/25 09:00 Colestipol Hcl 1 Gm Tablet PO Not Given DAILY ALINA Dextrose 12.5 gm 04/24/25 01:39 Dextrose 50% 25 Gm/50 Ml Syringe IV PUSH PRN PRN Hypoglycemia Protocol Escitalopram Oxalate 5 mg 04/24/25 09:00 04/28/25 18:54 Escitalopram Oxalate 5 Mg Tablet PO 5 mg DAILY ALINA Administration Glucagon 1 mg 04/24/25 01:39 Glucagon For Inj 1 Mg Vial IM PRN PRN Hypoglycemia Protocol Glucose 15 gm 04/24/25 01:39 Glucose Oral Gel 15 Gm Of Glucse In 37.5 Gm Tube PO PRN PRN Hypoglycemia Protocol Hydralazine HCl 25 mg 04/24/25 06:00 04/29/25 05:28 Hydralazine Hcl 25 Mg Tablet PO 25 mg Q8HR ALINA Administration Dextrose 1,000 mls @ 100 mls/hr 04/24/25 01:39 Dextrose 5% 1,000 Ml IVPB PRN PRN Hypoglycemia Protocol Albumin Human 50 mls @ 999 mls/hr 04/24/25 09:24 Albutein IVPB 05/24/25 09:23 Q10M PRN HYPOTENSION Insulin Aspart 2 - 5 units 04/24/25 08:00 04/28/25 17:30 Insulin Aspart (*Bkc) 100 Units/Ml SUB-Q Not Given TIDWM ALINA Protocol Isosorbide Mononitrate 30 mg 04/24/25 09:00 04/28/25 18:54 Isosorbide Mononitrate 30 Mg Tab.Er.24h PO 30 mg DAILY ALINA Administration Levothyroxine Sodium 200 mcg 04/24/25 06:30 04/29/25 05:28 Levothyroxine Sodium 100 Mcg Tablet PO 200 mcg DAILY@0630 ALINA Administration Lidocaine/Prilocaine 1 each 04/24/25 09:30 04/28/25 08:09 Lidocaine/Prilocaine Cream 2.5-2.5% Tube TOPICAL 1 each WITH DIALYSIS PRN Administration for dialysis Protocol Lorazepam 0.5 mg 04/24/25 01:37 04/27/25 09:45 Lorazepam (*Crx) 0.5 Mg Tablet PO 0.5 mg BID PRN Administration Anxiety Metoprolol Succinate 50 mg 04/24/25 09:00 04/28/25 18:54 Metoprolol Succinate Ext Rel 50 Mg Tabcr PO 50 mg QAM ALINA Administration Montelukast Sodium 10 mg 04/24/25 09:00 04/28/25 09:00 Montelukast Sodium 10 Mg Tablet PO Not Given DAILY ALINA Ropinirole HCl 0.5 mg 04/24/25 09:00 04/28/25 20:44 Ropinirole Hcl 0.5 Mg Tablet PO 0.5 mg Q12HR ALINA Administration Fluticasone/Salmeterol 2 puff 04/24/25 08:00 04/28/25 23:53 Fluticasone/Salmeterol 115-21 Mcg Inhaler 1 Puff INHALATION 2 puff Q12HRT ALINA Administration Tramadol HCl 25 mg 04/24/25 01:47 04/27/25 09:45 Tramadol Hcl (*Crx) 25 Mg Tablet PO 25 mg Q12H PRN Administration Pain Trazodone HCl 50 mg 04/24/25 21:00 04/28/25 20:44 Trazodone Hcl 50 Mg Tablet PO 50 mg QHS ALINA Administration Radiology Results: ITS Impressions Head CT 04/23/25 14:01 Impression: 1.No acute intracranial abnormality. Cervical Spine CT 04/23/25 14:05 Impression: No acute abnormality. Chest X-Ray 04/23/25 14:20 IMPRESSION: 1. Probable mild interstitial pulmonary edema with persistent right midlung atelectasis and/or scarring. 2. No significant change from prior. Tibia/Fibula X-Ray 04/23/25 14:20 IMPRESSION: 1. No cortical erosions or periosteal reaction to suggest osteitis. No other acute osseous abnormality. 2. 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 Lower Extremity CTA 04/27/25 13:15 IMPRESSION: 1. Peripheral vascular disease with relatively symmetric severe stenoses at the bilateral popliteal arteries and occlusions of the bilateral distal posterior tibial arteries. There are also appears be a segment occlusion of the left tibioperoneal trunk and proximal aspect of the anterior tibial artery which reconstitutes in the proximal calf via collaterals. 2. Small amount of ascites in the pelvis and visualized lower abdomen. 3. Shotty bilateral inguinal lymph nodes with mildly enlarged likely reactive right inguinal lymph node. Abdomen Ultrasound 04/28/25 12:57 IMPRESSION: 1. Small amount of perihepatic ascites. 2. Normal directional flow in the main portal vein but with increased pulsatility which can be seen with right heart failure, tricuspid regurgitation or other cause of elevated right heart pressures. Labs Labs: Laboratory Results - last 24 hr 04/28/25 04/28/25 04/28/25 08:02 16:29 19:41 WBC RBC Hgb Hct MCV MCH MCHC RDW Plt Count MPV Immature Gran % (Auto) Neut % (Auto) Lymph % (Auto) [place] % (Auto) Eos % (Auto) Baso % (Auto) Lymph # (Auto) [place] # (Auto) Eos # (Auto) Baso # (Auto) Abs Immat Gran (auto) Absolute Neuts (auto) Absolute Nucleated RBC Nucleated RBC % Sodium Potassium Chloride Carbon Dioxide Anion Gap BUN Creatinine Estim Creat Clear Calc Estimated GFR Glucose POC Capillary Glucose 145 H 150 H 145 H Calcium Total Bilirubin AST ALT Alkaline Phosphatase Total Protein Albumin 04/29/25 05:20 WBC 7.8 RBC 3.04 L Hgb 8.3 L Hct 27.7 L MCV 91.1 MCH 27.3 MCHC 30.0 L RDW 21.8 H Plt Count 229 MPV 10.4 Immature Gran % (Auto) 0.6 H Neut % (Auto) 67.1 Lymph % (Auto) 13.6 L [place] % (Auto) 15.4 H Eos % (Auto) 2.7 Baso % (Auto) 0.6 Lymph # (Auto) 1.06 [place] # (Auto) 1.2 H Eos # (Auto) 0.2 Baso # (Auto) 0.1 Abs Immat Gran (auto) 0.05 H Absolute Neuts (auto) 5.2 Absolute Nucleated RBC 0.050 H Nucleated RBC % 0.6 H Sodium 136 L Potassium 4.1 Chloride 99 Carbon Dioxide 29 Anion Gap 8 BUN 20 H D Creatinine 3.59 H Estim Creat Clear Calc 13 Estimated GFR 12 L Glucose 117 H POC Capillary Glucose Calcium 7.9 L Total Bilirubin 1.1 AST 205 H ALT 95 H Alkaline Phosphatase 126 Total Protein 7.0 Albumin 3.0 L Quality VTE Prophylaxis VTE prophylaxis: pharmacologic ordered
[2025-04-29] MEDS: COLESTIPOL HCL 1 GM TABLET 2 GM PO (08:33)
[2025-04-29] MEDS: CALCIUM ACETATE 667 MG TABLET PO (08:33)
[2025-04-29] MEDS: MONTELUKAST SODIUM 10 MG TABLET PO (08:34)
[2025-04-29] MEDS: ESCITALOPRAM OXALATE 5 MG TABLET PO (08:34)
[2025-04-29] MEDS: ISOSORBIDE MONONITRATE 30 MG TAB.ER.24H PO (08:34)
[2025-04-29] MEDS: APIXABAN 2.5 MG TABLET PO (08:34)
[2025-04-29 08:41] VITALS: PULSE 57
[2025-04-29] MEDS: AMIODARONE HCL 200 MG TABLET PO (08:41)
[2025-04-29] MEDS: METOPROLOL SUCCINATE EXT REL 50 MG TABCR PO (08:41)
[2025-04-29] MEDS: FLUTICASONE/SALMETEROL 115-21 MCG INHALER 1 PUFF 2 PUFF INHALATION (09:22)
[2025-04-29 09:23] VITALS: O2SAT 95
--- NOTE | 2025-04-29 10:59 | PCNWS ---
Weekly nutritional screen. Patient is tolerating current Diabetic renal diet with adequate intake 50-100% most all meals. No weight loss reported. No nutritional recommendations at this time.
--- NOTE | 2025-04-29 11:19 | PM.DS ---
DS: Admitting Diagnosis Discharge Date 04/29/2025 Admitting Diagnosis UTI DS: Discharge Diagnosis Discharge Diagnosis (1) Acute UTI: Code(s): N39.0 - Urinary tract infection, site not specified Status: Acute (2) Leg wound, right: Code(s): S81.801A - Unspecified open wound, right lower leg, initial encounter Status: Acute (3) ESRD on hemodialysis: Code(s): N18.6 - End stage renal disease; Z99.2 - Dependence on renal dialysis Status: Acute (4) Hypothyroidism (acquired): Onset Date: ~12/23/22 Code(s): E03.9 - Hypothyroidism, unspecified Status: Acute (5) Diabetes: Code(s): E11.9 - Type 2 diabetes mellitus without complications Status: Acute (6) COPD (chronic obstructive pulmonary disease): Qualifiers: COPD type: unspecified COPD Qualified Code(s): J44.9 - Chronic obstructive pulmonary disease, unspecified Code(s): J44.9 - Chronic obstructive pulmonary disease, unspecified Status: Acute (7) RAINA (obstructive sleep apnea): Code(s): G47.33 - Obstructive sleep apnea (adult) (pediatric) Status: Acute (8) Generalized weakness: Code(s): R53.1 - Weakness Status: Acute (9) Atrial fibrillation: Code(s): I48.91 - Unspecified atrial fibrillation Status: Chronic (10) Hyperlipidemia LDL goal <70: Code(s): E78.5 - Hyperlipidemia, unspecified Status: Acute (11) Hypertension: Qualifiers: Hypertension type: unspecified Qualified Code(s): I10 - Essential (primary) hypertension Code(s): I10 - Essential (primary) hypertension Status: Chronic (12) RLS (restless legs syndrome): Code(s): G25.81 - Restless legs syndrome Status: Acute (13) Insomnia: Code(s): G47.00 - Insomnia, unspecified Status: Acute DS: Summary Hospital Course Reason for hospitalization: Fall Hospital Course: The patient is a 74-year-old female with a complex medical history including ESRD on hemodialysis (MWF), atrial fibrillation on apixaban, prior CVA with residual expressive aphasia, COPD/RAINA, CHF, diabetes, and chronic anticoagulation, who was admitted on 04/24/2025 after an unwitnessed fall with unknown downtime. Initial trauma workup including CT head and cervical spine was negative for acute injury. On admission, she was noted to have leukocytosis, chronic anemia slightly below baseline, elevated lactate, and urinalysis highly suggestive of infection. She was empirically started on ceftriaxone, later escalated to IV meropenem after urine cultures grew ESBL-producing?Klebsiella pneumoniae?with limited oral options. Blood cultures remained negative. Lactate levels fluctuated but without sustained hemodynamic instability, fever, or leukocytosis, making systemic sepsis less likely. A large chronic right posterior ankle diabetic ulcer with exposed Achilles tendon and malodorous drainage was identified and evaluated as a potential infectious source. Imaging showed no evidence of osteomyelitis. She was treated with vancomycin, meropenem, and metronidazole per Infectious Disease recommendations, with wound care consultation and ongoing local management. Lower extremity CTA demonstrated significant peripheral vascular disease with bilateral popliteal stenoses and distal tibial occlusions, contributing to poor wound healing. No clear indication for prolonged antibiotic therapy was identified beyond the current course, with plans for dosing adjustments around dialysis if needed. Nephrology followed throughout admission, and the patient continued scheduled hemodialysis with stable volume status and electrolytes. Chronic anemia was managed with RADHA during dialysis, with hemoglobin remaining stable in the 7?8 g/dL range. COPD and RAINA remained stable without exacerbation, and she continued home inhalers and CPAP. Cardiac rhythm was predominantly sinus bradycardia; rate-controlling medications were continued with hold parameters. Blood pressures were intermittently elevated, particularly pre-dialysis, and managed with home antihypertensives and ultrafiltration. Given her frequent falls, generalized weakness, chronic wounds, and functional limitations, PT/OT evaluated her, and after discussion with her , plans were made for discharge to a detention facility. She no longer needs antibiotic coverage for urinary tract infection. Plan for discharge to detention facility at this time. Status at Discharge Functional status at discharge: uses cane/walker Overall status at discharge: patient is progressing back to baseline Time Spent with Patient Time attestation: Total time spent providing and/or coordinating discharge services: 30 Exam Const: Other: cooperative, awake, Physically active, average body habitus and well nourished Nutritional Appearance: average body habitus and well nourished Orientation/consciousness: oriented to person, oriented to place, oriented to time and patient oriented x3 HENMT: Other: normal to inspection, No palpable skull fracture present, normocephalic, atraumatic and abrasion Ears: hearing grossly normal bilaterally Eyes: Other: appearance normal, both eyes and all related structures Alignment and Position: alignment normal Periorbital: periorbital findings normal Eyelids: eyelids normal Neck: Other: normal visual inspection, full ROM, no lymphadenopathy and trachea midline Resp: Other: Effort & Inspection: normal respiratory effort Auscultation: clear to auscultation bilaterally Cardio: Other: Palpation: normal PMI Rate: regular rate Rhythm: regular rhythm Heart sounds: S2 normal heart sound present GI: Other: normal to inspection Auscultation: normal bowel sounds : Other: General: Yes no CVA tenderness Skin: Other: Left upper arm AV fistula with positive bruit and thrill. Large right diabetic ulcer noted to posterior ankle exposing the Achilles tendon. The area is approximately 5 by 7 with leong malodorous discharge. The area is unstageable. Erythema noted around the ulcerated area. Please see wound photio There is a dressing over the right forearm that I was unable to remove at this time and the nurse stated that it was a skin tear. Neuro: Other: General: oriented to person, oriented to place, oriented to time and patient oriented x3 Extrem: Other: General: normal to inspection Right upper extremity: normal to inspection and shoulder/upper arm Left upper extremity: normal to inspection and shoulder/upper arm Psych: Other: Affect: normal affect DS: Data Data Completed and Pending Labs on day of discharge: Labs from last 24 hours 04/29/25 04/29/25 04/28/25 08:31 05:20 19:41 WBC 7.8 RBC 3.04 L Hgb 8.3 L Hct 27.7 L MCV 91.1 MCH 27.3 MCHC 30.0 L RDW 21.8 H Plt Count 229 MPV 10.4 Immature Gran % (Auto) 0.6 H Neut % (Auto) 67.1 Lymph % (Auto) 13.6 L [place] % (Auto) 15.4 H Eos % (Auto) 2.7 Baso % (Auto) 0.6 Lymph # (Auto) 1.06 [place] # (Auto) 1.2 H Eos # (Auto) 0.2 Baso # (Auto) 0.1 Abs Immat Gran (auto) 0.05 H Absolute Neuts (auto) 5.2 Absolute Nucleated RBC 0.050 H Nucleated RBC % 0.6 H Sodium 136 L Potassium 4.1 Chloride 99 Carbon Dioxide 29 Anion Gap 8 BUN 20 H D Creatinine 3.59 H Estim Creat Clear Calc 13 Estimated GFR 12 L Glucose 117 H POC Capillary Glucose 120 H 145 H Calcium 7.9 L Total Bilirubin 1.1 AST 205 H ALT 95 H Alkaline Phosphatase 126 Total Protein 7.0 Albumin 3.0 L 04/28/25 16:29 WBC RBC Hgb Hct MCV MCH MCHC RDW Plt Count MPV Immature Gran % (Auto) Neut % (Auto) Lymph % (Auto) [place] % (Auto) Eos % (Auto) Baso % (Auto) Lymph # (Auto) [place] # (Auto) Eos # (Auto) Baso # (Auto) Abs Immat Gran (auto) Absolute Neuts (auto) Absolute Nucleated RBC Nucleated RBC % Sodium Potassium Chloride Carbon Dioxide Anion Gap BUN Creatinine Estim Creat Clear Calc Estimated GFR Glucose POC Capillary Glucose 150 H Calcium Total Bilirubin AST ALT Alkaline Phosphatase Total Protein Albumin Preliminary micro results at discharge 04/24/25 07:48 Blood Culture - Preliminary Blood 04/24/25 07:45 Blood Culture - Preliminary Blood Discharge Plan Discharge Attending physician on discharge: Boubacar Solo Consulting providers: Dimas Rios; Matthew Romero; Jame Dumont; Gwen Jaimes; Rikki Amezquita; Naomi Nathan; Rafat Sales; Brannon Hatfield; Jose Alejandro Shea; Rolan Greene; Bib Bledsoe Discharging Clinician: Miller Dillon Anticipated Discharge Date/Time: 04/29/25 11:14 Patient Disposition: SNF Activity: as tolerated Diet: regular Discharge Instructions: Discharge disposition: SNF Take medications as prescribed Monitor blood pressures Take caution while standing, rising, or moving Change positions slowly taking a break between each position change If you standing feel dizzy sit back down and take a break Encouraged to continue with yearly vaccinations Return to the emergency department if you develop sudden shortness of breath, chest pain, nausea, vomiting, upset stomach or intractable diarrhea Return to the emergency department if you develop fever greater than 101.5 Follow-up with the primary care physician within 1-2 weeks Thank you for [facility] for your healthcare needs Patient Instructions: Antibiotic Form, Apixaban (By mouth) Patient Language: Setswana Stand Alone Forms: General Discharge Information Follow-up/Referrals: Rikki Amezquita MD [Primary Care Provider, Family Practice] Discharge Medications: Continued insulin aspart U-100 [Novolog FlexPen U-100 Insulin] 100 unit/mL (3 mL) insulin pen See Rx Instructions .ROUTE .COMPLEX MDD 60 Rx Instructions: sliding scale 200-249 2u 250-299 3u 300-349 4u 350 greater 6u albuterol sulfate [Ventolin HFA] 90 mcg/actuation HFA aerosol inhaler See Rx Instructions .ROUTE .COMPLEX Qty: 18 6RF Dose Instruction: INHALE 2 PUFFS BY MOUTH 4 TIMES DAILY NEEDED FOR SHORTNESS OF BREATH OR WHEEZING. Rx Instructions: INHALE 2 PUFFS BY MOUTH 4 TIMES DAILY NEEDED FOR SHORTNESS OF BREATH OR WHEEZING. metoprolol succinate 50 mg tablet extended release 24 hr 50 mg PO QAM Qty: 90 0RF montelukast 10 mg tablet 10 mg PO DAILY Qty: 90 3RF insulin glargine [Lantus Solostar U-100 Insulin] 100 unit/mL (3 mL) insulin pen 18 unit subcut QPM Qty: 15 1RF Rx Instructions: INJECT 18 UNITS UNDER THE SKIN AT BEDTIME escitalopram oxalate [Lexapro] 5 mg tablet 5 mg PO DAILY Qty: 90 4RF amiodarone 200 mg tablet 200 mg PO QAM calcium acetate 667 mg tablet 667 mg PO DAILY levothyroxine 200 mcg capsule 200 mcg PO DAILY ropinirole 0.5 mg tablet 0.5 mg PO BID colestipol 1 gram tablet 2 g PO DAILY Eliquis 2.5 mg tablet 2.5 mg PO BID albuterol sulfate 2.5 mg /3 mL (0.083 %) solution for nebulization 2.5 mg inhalation Q4-6H PRN (Reason: shortness of breath or wheezing) Qty: 90 6RF budesonide-formoterol 160-4.5 mcg/actuation HFA aerosol inhaler 2 puff inhalation Q12H Qty: 10.2 6RF trazodone 50 mg tablet 50 mg PO QHS Qty: 30 5RF atorvastatin [Lipitor] 20 mg tablet 20 mg PO HS Qty: 90 1RF hydralazine 25 mg tablet 25 mg PO TID Qty: 270 0RF isosorbide mononitrate 30 mg tablet extended release 24 hr 30 mg PO DAILY Qty: 90 0RF lorazepam [Ativan] 0.5 mg tablet 0.5 mg PO BID PRN (Reason: anxiety) Qty: 60 0RF Discontinued clindamycin HCl [Cleocin HCl] 300 mg capsule 300 mg PO Q6H Qty: 40 0RF No Action tramadol 50 mg tablet 25 mg PO Q12H PRN (Reason: pain) Qty: 30 0RF Date of admission: 04/23/25 17:06 Primary Care Provider: Rikki Amezquita Admitting Provider: Varghese Salmeron Attending physician on admission: Miller Dillon Condition: Stable Quality VTE Prophylaxis VTE prophylaxis: pharmacologic ordered
[2025-04-29 14:00] VITALS: BP 149/60; PULSE 57; RESP 12; TEMP 36.7; O2SAT 97
== END 2025-04-29 17:40 | DRG 689 ==
LOC: ANHED 17:25 → ANH3MEDSUR 18:21
PROVIDERS: Internal Medicine Nephrology; Nurse Practitioner; Admitting Provider Internal Medicine; Emergency Provider Student in an Organized Health Care Education/Training Program; PCP Family Medicine; Visit Provider Physician Assistant
DX: N39.0 Urinary tract infection, site not specified (principal); N18.6 End stage renal disease; I69.351 Hemiplegia and hemiparesis following cerebral infarction affecting right dominant side; I50.32 Chronic diastolic (congestive) heart failure; L97.318 Non-pressure chronic ulcer of right ankle with other specified severity; E11.622 Type 2 diabetes mellitus with other skin ulcer; B96.1 Klebsiella pneumoniae [K. pneumoniae] as the cause of diseases classified elsewhere; E11.22 Type 2 diabetes mellitus with diabetic chronic kidney disease; Z99.2 Dependence on renal dialysis; E03.9 Hypothyroidism, unspecified; E11.65 Type 2 diabetes mellitus with hyperglycemia; J44.9 Chronic obstructive pulmonary disease, unspecified; G47.33 Obstructive sleep apnea (adult) (pediatric); R62.7 Adult failure to thrive; D63.1 Anemia in chronic kidney disease; I48.0 Paroxysmal atrial fibrillation; E78.5 Hyperlipidemia, unspecified; I25.10 Atherosclerotic heart disease of native coronary artery without angina pectoris; G25.81 Restless legs syndrome; N25.0 Renal osteodystrophy; E11.42 Type 2 diabetes mellitus with diabetic polyneuropathy; F41.1 Generalized anxiety disorder; G47.00 Insomnia, unspecified; R29.6 Repeated falls; I69.320 Aphasia following cerebral infarction; Z79.01 Long term (current) use of anticoagulants; Z79.4 Long term (current) use of insulin; Z86.718 Personal history of other venous thrombosis and embolism; Z90.49 Acquired absence of other specified parts of digestive tract; Z87.891 Personal history of nicotine dependence
CPT/HCPCS: 36415; 70450; 71045; 72125; 73590; 73706; 76705; 80048; 80053; 80202; 81001; 82550; 82948; 83036; 83605; 83735; 84100; 85014; 85018; 85025; 85610; 86706; 87040; 87075; 87086; 87186; 87205; 87340; 93005; 94640; 97162; 97165; 97530; 97535; 99283; 99285; A9270; G0257; J0696; J1836; J2185; J3373; J7030; Q5105; Q9967